=== PATIENT | female | born 1995 | race Hispanic/Latino ===

== ENCOUNTER 2018-08-31 04:52 | Emergency (ER) | payer SELFPAY ==
--- OUTSIDE RECORDS SUMMARY | 2018-08-31 04:54 | XMS REPORT ---
:1995 [facility] Address [address] [place] [address] Care Team Providers Name Role Phone Unavailable Unavailable Unavailable Problems This patient has no known problems. Allergies, Adverse Reactions, Alerts This patient has no known allergies or adverse reactions. Medications This patient has no known medications.
[2018-08-31] MEDS ORDERED: LIDOCAINE 1% MPF 5 ML VIAL ONE (05:33)
[2018-08-31] MEDS ORDERED: LIDOCAINE 2% W/EPI 1:200,000 MPF 20 ML VIAL IM ONE (05:50)
[2018-08-31] MEDS ORDERED: ONDANSETRON 4 MG (ODT) TAB ONE (06:05)
--- NOTE | 2018-08-31 06:11 | EDPHYS ---
Physician Documentation [facility] Name: Elba Wells Age: 23 yrs Sex: Female : 1995 Arrival Date: 08/31/2018 Time: 05:02 Bed 8 Private MD: ED Physician Rodrigo Saba HPI: 08/31 05:58 This 23 yrs old Female presents to ER via Ambulatory with complaints of gs Toothache. 05:59 The patient presents with broken tooth/teeth, pain. The problem is located in the lower gs left first bicuspid. Onset: The symptoms/episode began/occurred 1 week(s) ago, and became worse and became persistent. Duration: The symptoms are continuous. Modifying factors: the symptoms are aggravated by chewing. Associated signs and symptoms: Pertinent negatives: inability to eat, redness in area, swelling. Severity of symptoms: At their worst the symptoms were moderate, in the emergency department the symptoms are unchanged. The patient has experienced similar episodes in the past, a few times. 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 - Social history:: Smoking status: Patient/guardian denies using tobacco, Patient uses alcohol, occasionally. - Ebola Screening: : Patient negative for fever greater than or equal to 101.5 degrees Fahrenheit, and additional compatible Ebola Virus Disease symptoms. ROS: 05:59 All other systems are negative. gs 06:23 Abdomen/GI: Positive for vomiting, diarrhea. gs Exam: 05:59 Head/Face: Normocephalic, atraumatic. Eyes: Pupils equal round and reactive to light, gs extra-ocular motions intact. Lids and lashes normal. Conjunctiva and sclera are non-icteric and not injected. Cornea within normal limits. Periorbital areas with no swelling, redness, or edema. Neck: Trachea midline, no thyromegaly or masses palpated, and no cervical lymphadenopathy. Supple, full range of motion without nuchal rigidity, or vertebral point tenderness. No Meningismus. Cardiovascular: Regular rate and rhythm with a normal S1 and S2. No gallops, murmurs, or rubs. Normal PMI, no JVD. No pulse deficits. Respiratory: Lungs have equal breath sounds bilaterally, clear to auscultation and percussion. No rales, rhonchi or wheezes noted. No increased work of breathing, no retractions or nasal flaring. Abdomen/GI: Soft, non-tender, with normal bowel sounds. No distension or tympany. No guarding or rebound. No evidence of tenderness throughout. Back: No spinal tenderness. No costovertebral tenderness. Full range of motion. Skin: Warm, dry with normal turgor. Normal color with no rashes, no lesions, and no evidence of cellulitis. MS/ Extremity: Pulses equal, no cyanosis. Neurovascular intact. Full, normal range of motion. Neuro: Awake and alert, GCS 15, oriented to person, place, time, and situation. Cranial nerves II-XII grossly intact. Motor strength 5/5 in all extremities. Sensory grossly intact. Cerebellar exam normal. Normal gait. 05:59 Constitutional: The patient appears alert, awake, uncomfortable. 05:59 ENT: Dental exam: abscess, is not appreciated, fractured teeth are noted, specifically the lower left first bicuspid (#21), gum swelling, not appreciated. Vital Signs: 05:20 BP 143 / 86; Pulse 118; Resp 18 S; Temp 98.1(O); Pulse Ox 98% on R/A; Weight 89.81 kg jd3 (R); Height 5 ft. 6 in. (167.64 cm) (R); Pain 10/10; 05:49 BP 114 / 77; Pulse 70; Resp 18; Pulse Ox 97% on R/A; ea 05:20 Body Mass Index 31.96 (89.81 kg, 167.64 cm) jd3 Procedures: 05:59 Nerve block: (dental) of periapical block, Medication: Lidocaine 1% with epinephrine, Amount: 2 mls were injected, Effect: the patient's symptoms are improved, markedly, Performed by Rodrigo Saba MD Patient tolerated well. MDM: 05:22 Patient medically screened. gs 05:59 Differential diagnosis: dental caries, dental abscess. Data reviewed: vital signs, gs nurses notes. Counseling: I had a detailed discussion with the patient and/or guardian regarding: the historical points, exam findings, and any diagnostic results supporting the discharge/admit diagnosis, the need for outpatient follow up, an oral maxilofacial specialist. Response to treatment: the patient's symptoms have markedly improved after treatment, and as a result, I will discharge patient. Administered Medications: 05:45 Drug: Lidocaine-Epinephrine -1%: (1:100,000) 5 ml {Note: administered by provider.} ea Volume: 20 ml; Route: Infiltration; 05:51 Drug: Zofran 4 mg Route: PO; jd3 06:38 Follow up: Response: No adverse reaction jd3 06:37 Drug: Raywick 5 mg-325 mg 1 tabs Route: PO; jd3 06:38 Follow up: Response: Medication administered at discharge. jd3 Disposition: 08/31/18 06:10 Discharged to Home. Impression: Fracture of tooth (traumatic). - Condition is Stable. - Discharge Instructions: Tooth Injuries, [id number]. - Prescriptions for Amoxicillin 875 mg Oral Tablet - take 1 tablet by ORAL route every 12 hours .; 14 tablet. Zofran 4 mg Oral Tablet - take 1 tablet by ORAL route every 12 hours As needed; 6 tablet. Tylenol- Codeine #4 300-60 mg Oral Tablet - take 1 tablet by ORAL route every 6 hours As needed; 10 tablet. - Medication Reconciliation Form, Thank You Letter, Antibiotic Education, Prescription Opioid Use form. - Follow up: Samir Garcia DDS; When: 2 - 3 days; Reason: Re-evaluation by your physician. Signatures: Marly Wilhelm RN RN ea Starr, Gregory, MD MD Juvencio Upton RN RN jd3 Corrections: (The following items were deleted from the chart) 06:39 06:10 08/31/2018 06:10 Discharged to Home. Impression: Fracture of tooth (traumatic). jd3 Condition is Stable. Forms are Medication Reconciliation Form, Thank You Letter, Antibiotic Education, Prescription Opioid Use. Follow up: Samir Garcia; When: 2 - 3 days; Reason: Re-evaluation by your physician. erica
--- NOTE | 2018-08-31 06:11 | ER ---
Nurse's Notes [facility] Name: Elba Wells Age: 23 yrs Sex: Female : 1995 Arrival Date: 08/31/2018 Time: 05:02 Bed 8 Private MD: Diagnosis: Fracture of tooth (traumatic) Presentation: 08/31 05:16 Presenting complaint: Patient states: "I woke up with bad tooth pain. I have been jd3 dealing with it for awhile, but it has gotten bad today.". Transition of care: patient was not received from another setting of care. Onset of symptoms was August 31, 2018. Risk Assessment: Do you want to hurt yourself or someone else? Patient reports no desire to harm self or others. Initial Sepsis Screen: Does the patient meet any 2 criteria? No. Patient's initial sepsis screen is negative. Does the patient have a suspected source of infection? No. Patient's initial sepsis screen is negative. Care prior to arrival: Medication(s) given: amoxicillin and hydrocodone. 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 - Social history:: Smoking status: Patient/guardian denies using tobacco, Patient uses alcohol, occasionally. - Ebola Screening: : Patient negative for fever greater than or equal to 101.5 degrees Fahrenheit, and additional compatible Ebola Virus Disease symptoms. Screenin:26 Abuse screen: Denies threats or abuse. Nutritional screening: No deficits noted. jd3 Tuberculosis screening: No symptoms or risk factors identified. Fall Risk Ambulatory Aid- None/Bed Rest/Nurse Assist (0 pts). Gait- Normal/Bed Rest/Wheelchair (0 pts) Mental Status- Oriented to own ability (0 pts). Total Mcfadden Fall Scale indicates No Risk (0-24 pts). Assessment: 05:24 General: Appears uncomfortable, Behavior is cooperative, crying. Pain: Complains of jd3 pain in mouth Quality of pain is described as sharp. Neuro: Level of Consciousness is awake, alert, obeys commands, Oriented to person, place, time, situation, Appropriate for age. Cardiovascular: Capillary refill < 3 seconds Patient's skin is warm and dry. Respiratory: Airway is patent Respiratory effort is even, unlabored, Respiratory pattern is regular, symmetrical. GI: No signs and/or symptoms were reported involving the gastrointestinal system. : No signs and/or symptoms were reported regarding the genitourinary system. EENT: Reports pain in mouth. Derm: Skin is intact, Skin is dry, Skin is normal, Skin temperature is warm. Musculoskeletal: Circulation, motion, and sensation intact. Range of motion: intact in all extremities. Vital Signs: 05:20 BP 143 / 86; Pulse 118; Resp 18 S; Temp 98.1(O); Pulse Ox 98% on R/A; Weight 89.81 kg jd3 (R); Height 5 ft. 6 in. (167.64 cm) (R); Pain 10/10; 05:49 BP 114 / 77; Pulse 70; Resp 18; Pulse Ox 97% on R/A; ea 05:20 Body Mass Index 31.96 (89.81 kg, 167.64 cm) jd3 ED Course: 05:02 Patient arrived in ED. es 05:15 Rodrigo Saba MD is Attending Physician. gs 05:16 Juvencio Upton, RN is Primary Nurse. jd3 05:19 Triage completed. jd3 05:23 Arm band placed on. jd3 05:26 Patient has correct armband on for positive identification. Bed in low position. Call jd3 light in reach. Side rails up X 1. Adult w/ patient. 06:09 Samir Garcia DDS is Referral Physician. gs 06:38 No provider procedures requiring assistance completed. Patient did not have IV access jd3 during this emergency room visit. Administered Medications: 05:45 Drug: Lidocaine-Epinephrine -1%: (1:100,000) 5 ml {Note: administered by provider.} ea Volume: 20 ml; Route: Infiltration; 05:51 Drug: Zofran 4 mg Route: PO; jd3 06:38 Follow up: Response: No adverse reaction jd3 06:37 Drug: Murray 5 mg-325 mg 1 tabs Route: PO; jd3 06:38 Follow up: Response: Medication administered at discharge. jd3 Outcome: 06:10 Discharge ordered by . 06:38 Discharged to home ambulatory, with family. jd3 06:38 Condition: stable 06:38 Discharge instructions given to patient, Instructed on discharge instructions, follow up and referral plans. medication usage, Demonstrated understanding of instructions, follow-up care, medications, Prescriptions given X 3. 06:39 Patient left the ED. jd3 Signatures: Stefany Clifford Elena RN RN Rodrigo Rodriguez MD MD gs Davies, Jonathon, RN RN jmaddie
[2018-08-31] MEDS ORDERED: HYDROCODONE/APAP 5/325 MG TAB ONE (06:41)
== END 2018-08-31 06:39 | disposition home or self-care (01) ==
LOC: ER 04:52
DX: S02.5XXA Fracture of tooth (traumatic), initial encounter for closed fracture (principal); X58.XXXA Exposure to other specified factors, initial encounter
CPT/HCPCS: 99283

== ENCOUNTER 2018-09-05 23:40 | Emergency (ER) | payer SELFPAY ==
--- OUTSIDE RECORDS SUMMARY | 2018-09-05 23:42 | XMS REPORT ---
:1995 [facility] Address [address] [place] [address] Care Team Providers Name Role Phone Unavailable Unavailable Unavailable Problems This patient has no known problems. Allergies, Adverse Reactions, Alerts This patient has no known allergies or adverse reactions. Medications This patient has no known medications.
--- NOTE | 2018-09-06 00:59 | ER ---
Nurse's Notes [facility] Name: Elba Wells Age: 23 yrs Sex: Female : 1995 Arrival Date: 09/05/2018 Time: 23:42 Bed 18 [facility] MD: Diagnosis: Influenza due to unidentified influenza virus Presentation: 09/05 23:51 Presenting complaint: Patient states: Fever, chills, body aches that started around ed1 this time last night. Transition of care: patient was not received from another setting of care. Onset of symptoms was September 04, 2018. Risk Assessment: Do you want to hurt yourself or someone else? Patient reports no desire to harm self or others. Initial Sepsis Screen: Does the patient meet any 2 criteria? No. Patient's initial sepsis screen is negative. Does the patient have a suspected source of infection? No. Patient's initial sepsis screen is negative. Care prior to arrival: Medication(s) given: Motrin, Tylenol, Theraflu, Dayquil. 23:51 Method Of Arrival: Ambulatory ed1 23:51 Acuity: CED 4 ed1 Triage Assessment: 23:54 General: Appears uncomfortable, Behavior is calm, cooperative, Reports chills for 12-24 ed1 hours, fever for 12-24 hours, feeling ill for 12-24 hours, fatigue for 12-24 hours. Pain: Complains of pain in generalized Pain currently is 6 out of 10 on a pain scale. Quality of pain is described as aching, Pain began 1 day ago. Is continuous. EENT: Throat is reddened. Neuro: Level of Consciousness is awake, alert, obeys commands, Oriented to person, place, time, situation. Cardiovascular: Denies chest pain, Heart tones S1 S2 present. Respiratory: Reports cough that is non-productive, Airway is patent Respiratory effort is even, unlabored, Respiratory pattern is regular, symmetrical, Breath sounds are clear bilaterally. GI: Abdomen is non-distended, Bowel sounds present X 4 quads. Patient currently denies diarrhea, nausea, vomiting. : No signs and/or symptoms were reported regarding the genitourinary system. Derm: Skin is intact, is healthy with good turgor, Skin is dry, Skin is normal, Skin temperature is warm. Musculoskeletal: Circulation, motion, and sensation intact. Capillary refill < 3 seconds, in bilateral fingers. Range of motion: intact in all extremities. 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 - Social history:: Smoking status: Patient/guardian denies using tobacco. - Ebola Screening: : Patient negative for fever greater than or equal to 101.5 degrees Fahrenheit, and additional compatible Ebola Virus Disease symptoms Patient denies exposure to infectious person Patient denies travel to an Ebola-affected area in the 21 days before illness onset No symptoms or risks identified at this time. Screenin:57 Abuse screen: Denies threats or abuse. Denies injuries from another. Nutritional ed1 screening: No deficits noted. Tuberculosis screening: No symptoms or risk factors identified. Fall Risk None identified. Assessment: 23:57 General: See triage assessment. ed1 09/06 01:08 Reassessment: Patient appears in no apparent distress at this time. No changes from ed1 previously documented assessment. Patient and/or family updated on plan of care and expected duration. Pain level reassessed. Patient is alert, oriented x 3, equal unlabored respirations, skin warm/dry/pink. Vital Signs: 09/05 23:54 BP 123 / 88; Pulse 93; Resp 20; Temp 99.1(O); Pulse Ox 100% on R/A; Weight 89.81 kg; ed1 Height 5 ft. 6 in. (167.64 cm); Pain 6/10; 09/06 01:08 BP 113 / 88; Pulse 88; Resp 19; Temp 99.5(O); Pulse Ox 99% on R/A; Pain 6/10; ed1 09/05 23:54 Body Mass Index 31.96 (89.81 kg, 167.64 cm) ed1 ED Course: 09/05 23:42 Patient arrived in ED. es 23:51 Marian Larson, BALDOMERO is Primary Nurse. ed1 23:51 Ariel Leon PA is PHCP. cp 23:51 Rodrigo Saba MD is Attending Physician. cp 23:52 Triage completed. ed1 23:54 Arm band placed on. ed1 23:57 Patient has correct armband on for positive identification. Bed in low position. Call ed1 light in reach. Side rails up X 1. Pulse ox on. NIBP on. 09/06 01:08 No provider procedures requiring assistance completed. Patient did not have IV access ed1 during this emergency room visit. Administered Medications: No medications were administered Outcome: 00:58 Discharge ordered by . cp 01:08 Discharged to home ambulatory. ed1 01:08 Condition: good 01:08 Discharge instructions given to patient, Instructed on discharge instructions, follow up and referral plans. medication usage, Demonstrated understanding of instructions, follow-up care, medications, Prescriptions given X 2. 01:10 Patient left the ED. ed1 Signatures: Stefany Clifford Erika RN RN ed1 Ariel Leon PA PA cp
--- NOTE | 2018-09-06 00:59 | EDPHYS ---
Physician Documentation [facility] Name: Elba Wells Age: 23 yrs Sex: Female : 1995 Arrival Date: 09/05/2018 Time: 23:42 Bed 18 Private MD: ED Physician Rodrigo Saba HPI: 09/06 00:10 This 23 yrs old Female presents to ER via Ambulatory with complaints of Fever, cp Runny Nose. 00:10 The patient or guardian reports cough, with productive sputum, flu symptoms, low-grade cp fever, body aches. 00:10 Onset: The symptoms/episode began/occurred yesterday. Severity of symptoms: in the emergency department the symptoms have improved, mildly. Associated signs and symptoms: Pertinent positives: diarrhea, rhinorrhea, sore throat, Pertinent negatives: ear ache, vomiting. 00:57 Patient reports children recently diagnosed with influenza. 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 - Social history:: Smoking status: Patient/guardian denies using tobacco. - Ebola Screening: : Patient negative for fever greater than or equal to 101.5 degrees Fahrenheit, and additional compatible Ebola Virus Disease symptoms Patient denies exposure to infectious person Patient denies travel to an Ebola-affected area in the 21 days before illness onset No symptoms or risks identified at this time. ROS: 09/06 00:15 Constitutional: Positive for body aches, Negative for fever, poor PO intake. cp 00:15 Eyes: Negative for injury, pain, redness, and discharge. cp 00:15 ENT: Positive for rhinorrhea, sore throat, Negative for drainage from ear(s), ear pain, difficulty swallowing, difficulty handling secretions. 00:15 Neck: Negative for pain with movement, pain at rest, stiffness. 00:15 Respiratory: Positive for cough, Negative for shortness of breath, wheezing. 00:15 Abdomen/GI: Positive for diarrhea, Negative for abdominal pain, vomiting, constipation. 00:15 Skin: Negative for cellulitis, rash. 00:15 Neuro: Negative for altered mental status, headache, weakness. 00:15 All other systems are negative. Exam: 00:22 Constitutional: The patient appears in no acute distress, alert, awake, non-toxic, well cp developed, well nourished. 00:22 Head/Face: Normocephalic, atraumatic. cp 00:22 Eyes: Periorbital structures: appear normal, Conjunctiva: normal, no exudate, no injection, Sclera: no appreciated abnormality, Lids and lashes: appear normal, bilaterally. 00:22 ENT: External ear(s): are unremarkable, Ear canal(s): are normal, clear, TM's: bulging, is not appreciated, bilaterally, dullness, bilaterally, erythema, is not appreciated, bilaterally, Nose: is normal, Mouth: Lips: moist, Oral mucosa: moist, Posterior pharynx: Airway: no evidence of obstruction, patent, Tonsils: with erythema, no enlargement, no exudate, Uvula: midline, swelling, is not appreciated, erythema, that is mild, exudate, is not appreciated. 00:22 Neck: ROM/movement: is normal, is supple, without pain, no range of motions limitations, no meningismus, no nuchal rigidity. 00:22 Chest/axilla: Inspection: normal, Palpation: is normal, no crepitus, no tenderness. 00:22 Cardiovascular: Rate: normal, Rhythm: regular. 00:22 Respiratory: the patient does not display signs of respiratory distress, Respirations: normal, no use of accessory muscles, no retractions, no splinting, no tachypnea, labored breathing, is not present, Breath sounds: are clear throughout, no decreased breath sounds, no stridor, no wheezing. 00:22 Abdomen/GI: Exam negative for discomfort, distension, guarding, Inspection: abdomen appears normal. 00:22 Skin: cellulitis, is not appreciated, no rash present. Vital Signs: 09/05 23:54 BP 123 / 88; Pulse 93; Resp 20; Temp 99.1(O); Pulse Ox 100% on R/A; Weight 89.81 kg; ed1 Height 5 ft. 6 in. (167.64 cm); Pain 6/10; 09/06 01:08 BP 113 / 88; Pulse 88; Resp 19; Temp 99.5(O); Pulse Ox 99% on R/A; Pain 6/10; ed1 09/05 23:54 Body Mass Index 31.96 (89.81 kg, 167.64 cm) ed1 MDM: 09/05 23:51 Patient medically screened. cp 09/06 00:57 Data reviewed: vital signs, nurses notes, lab test result(s), and as a result, I will cp discharge patient. 00:57 Differential Diagnosis: Bronchitis Influenza Viral Syndrome Pneumonia. Counseling: I cp had a detailed discussion with the patient and/or guardian regarding: the historical points, exam findings, and any diagnostic results supporting the discharge/admit diagnosis, lab results, to return to the emergency department if symptoms worsen or persist or if there are any questions or concerns that arise at home. 09/06 00:01 Order name: Influenza Screen (a \T\ B) cp 09/06 00:01 Order name: Strep cp 09/06 00:44 Order name: Throat Culture EDMS Administered Medications: No medications were administered Disposition: 09/06/18 00:58 Discharged to Home. Impression: Influenza due to unidentified influenza virus. - Condition is Stable. - Discharge Instructions: Influenza, Adult, Form - Excuse from Work, School, or Physical Activity. - Prescriptions for Tessalon Perles 100 mg Oral Capsule - take 2 capsule by ORAL route every 8 hours As needed; 20 capsule. Tamiflu 75 mg Oral Capsule - take 1 tablet by ORAL route every 12 hours for 5 days; 10 tablet. - Medication Reconciliation Form, Thank You Letter, Antibiotic Education, Prescription Opioid Use form. - Follow up: Private Physician; When: 2 - 3 days; Reason: Worsening of condition. - Problem is new. - Symptoms are unchanged. Signatures: Dispatcher [employer] EDMS Marian Larson RN RN ed1 Ariel Leon PA PA cp Corrections: (The following items were deleted from the chart) 01:10 00:58 09/06/2018 00:58 Discharged to Home. Impression: Influenza due to unidentified ed1 influenza virus. Condition is Stable. Forms are Medication Reconciliation Form, Thank You Letter, Antibiotic Education, Prescription Opioid Use. Follow up: Private Physician; When: 2 - 3 days; Reason: Worsening of condition. Problem is new. Symptoms are unchanged. cp
== END 2018-09-06 01:10 | disposition home or self-care (01) ==
LOC: ER 23:40
DX: J10.1 Influenza due to other identified influenza virus with other respiratory manifestations (principal); Z91.09 Other allergy status, other than to drugs and biological substances
CPT/HCPCS: 87070; 87081; 87804; 99283

== ENCOUNTER 2019-01-11 12:59 | Emergency (ER) | payer SELFPAY ==
--- OUTSIDE RECORDS SUMMARY | 2019-01-11 13:02 | XMS REPORT ---
:1995 [facility] Address [address] [place] [address] Dr. Tate [address] [place] [id number] Care Team Providers Name Role Phone Unavailable Unavailable Unavailable Problems This patient has no known problems. Allergies, Adverse Reactions, Alerts This patient has no known allergies or adverse reactions. Medications This patient has no known medications.
--- NOTE | 2019-01-11 14:28 | EDPHYS ---
Physician Documentation [facility] Name: Elba Wells Age: 23 yrs Sex: Female : 1995 Arrival Date: 01/11/2019 Time: 13:04 Bed 19 Private MD: None, None ED Physician Liborio Murillo HPI: 01/11 14:38 This 23 yrs old Female presents to ER via Ambulatory with complaints of Back kb Injury. 14:38 The patient presents with pain that is acute. The symptoms are located in the right low kb back. Onset: The symptoms/episode began/occurred 3 day(s) ago. The pain radiates to the right leg. Associated signs and symptoms: The patient has no apparent associated signs or symptoms. The problem was sustained when lifting heavy object. Modifying factors: The patient symptoms are alleviated by nothing, the patient symptoms are aggravated by any movement. Severity of symptoms: At their worst the symptoms were moderate, in the emergency department the symptoms are unchanged. The patient has not experienced similar symptoms in the past. The patient has not recently seen a physician. Pt reports she lifted some heavy stuff at work on Wednesday and hurt her back. Reports right lower back pain that radiates down right leg. 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 - Social history:: Smoking status: Patient/guardian denies using tobacco. - Ebola Screening: : Patient negative for fever greater than or equal to 101.5 degrees Fahrenheit, and additional compatible Ebola Virus Disease symptoms Patient denies exposure to infectious person Patient denies travel to an Ebola-affected area in the 21 days before illness onset No symptoms or risks identified at this time. ROS: 14:36 Constitutional: Negative for fever, chills, and weight loss, Cardiovascular: Negative kb for chest pain, palpitations, and edema, Respiratory: Negative for shortness of breath, cough, wheezing, and pleuritic chest pain, Abdomen/GI: Negative for abdominal pain, nausea, vomiting, diarrhea, and constipation, : Negative for injury, bleeding, discharge, and swelling, MS/Extremity: Negative for injury and deformity, Skin: Negative for injury, rash, and discoloration, Neuro: Negative for headache, weakness, numbness, tingling, and seizure. 14:36 Back: Positive for pain at rest, pain with movement, radiated pain. Exam: 14:36 Constitutional: This is a well developed, well nourished patient who is awake, alert, kb and in no acute distress. Head/Face: Normocephalic, atraumatic. Chest/axilla: Normal chest wall appearance and motion. Nontender with no deformity. No lesions are appreciated. Cardiovascular: Regular rate and rhythm with a normal S1 and S2. No gallops, murmurs, or rubs. Normal PMI, no JVD. No pulse deficits. Respiratory: Lungs have equal breath sounds bilaterally, clear to auscultation and percussion. No rales, rhonchi or wheezes noted. No increased work of breathing, no retractions or nasal flaring. Abdomen/GI: Soft, non-tender, with normal bowel sounds. No distension or tympany. No guarding or rebound. No evidence of tenderness throughout. Skin: Warm, dry with normal turgor. Normal color with no rashes, no lesions, and no evidence of cellulitis. MS/ Extremity: Pulses equal, no cyanosis. Neurovascular intact. Full, normal range of motion. Neuro: Awake and alert, GCS 15, oriented to person, place, time, and situation. Cranial nerves II-XII grossly intact. Motor strength 5/5 in all extremities. Sensory grossly intact. Cerebellar exam normal. Normal gait. 14:36 Back: pain, that is moderate, of the right low back, ROM is normal, normal spinal alignment noted. Vital Signs: 13:10 BP 125 / 60; Pulse 91; Resp 17; Temp 97.2; Pulse Ox 99% on R/A; Weight 86.18 kg; Height aj 5 ft. 6 in. (167.64 cm); 14:11 BP 115 / 86; Pulse 98; Resp 17; Pulse Ox 100% on R/A; tw2 14:53 BP 114 / 83; Pulse 96; Resp 18; Pulse Ox 100% on R/A; tw2 13:10 Body Mass Index 30.67 (86.18 kg, 167.64 cm) laura MDM: 14:15 Patient medically screened. kb 14:36 Data reviewed: vital signs, nurses notes. Data interpreted: Pulse oximetry: on room air kb is 99 %. Interpretation: normal. Counseling: I had a detailed discussion with the patient and/or guardian regarding: the historical points, exam findings, and any diagnostic results supporting the discharge/admit diagnosis, the need for outpatient follow up, a family practitioner, to return to the emergency department if symptoms worsen or persist or if there are any questions or concerns that arise at home. 01/11 14:46 Order name: Urine Dipstick--Ancillary (enter results) bd 01/11 14:09 Order name: Urine Dipstick-Ancillary (obtain specimen); Complete Time: 14:18 tw2 Administered Medications: No medications were administered Disposition: 17:20 Co-signature as Attending Physician, Liborio Murillo MD. rn Disposition: 01/11/19 14:28 Discharged to Home. Impression: Low back pain. - Condition is Stable. - Discharge Instructions: Back Injury Prevention, Pqap-jf-Ssea, Back Pain, Adult, Jfqb-fl-Tovz, Back Exercises, [id number]-np-Xyqb. - Prescriptions for Cyclobenzaprine 10 mg Oral Tablet - take 1 tablet by ORAL route every 8 hours As needed; 21 tablet. Diclofenac Sodium 75 mg Oral Tablet, Delayed Release (E.C.) - take 1 tablet by ORAL route 2 times per day As needed; 30 tablet. - Medication Reconciliation Form, Thank You Letter, Antibiotic Education, Prescription Opioid Use, Work release form form. - Follow up: Emergency Department; When: As needed; Reason: Worsening of condition. Follow up: Private Physician; When: 2 - 3 days; Reason: Recheck today's complaints, Continuance of care, Re-evaluation by your physician. Signatures: Dispatcher [employer] Carolina Stout, VICKIE-Dorothea PRABHAKARP-Irene Sykes RN Liborio Briceño MD MD rn Wise, Tara, RN RN tw2 Corrections: (The following items were deleted from the chart) 14:27 14:20 TEST, SERUM+SC.LAB.BRZ ordered. [facility] 14:53 14:28 01/11/2019 14:28 Discharged to Home. Impression: Low back pain. Condition is tw2 Stable. Forms are Medication Reconciliation Form, Thank You Letter, Antibiotic Education, Prescription Opioid Use. Follow up: Emergency Department; When: As needed; Reason: Worsening of condition. Follow up: Private Physician; When: 2 - 3 days; Reason: Recheck today's complaints, Continuance of care, Re-evaluation by your physician. kb
--- NOTE | 2019-01-11 14:28 | ER ---
Nurse's Notes [facility] Name: Elba Wells Age: 23 yrs Sex: Female : 1995 Arrival Date: 01/11/2019 Time: 13:04 Bed 19 Private MD: None, None Diagnosis: Low back pain Presentation: 01/11 13:09 Presenting complaint: Patient states: Reports right lower back pain since Wednesday when aj she was carrying something heavy at work. Transition of care: patient was not received from another setting of care. Onset of symptoms was January 09, 2019. Risk Assessment: Do you want to hurt yourself or someone else? Patient reports no desire to harm self or others. Initial Sepsis Screen: Does the patient meet any 2 criteria? No. Patient's initial sepsis screen is negative. Does the patient have a suspected source of infection? No. Patient's initial sepsis screen is negative. Care prior to arrival: None. 13:09 Method Of Arrival: Ambulatory aj 13:09 Acuity: CED 4 aj Triage Assessment: 13:10 General: Appears in no apparent distress. comfortable, Behavior is calm, cooperative, aj appropriate for age. Pain: Complains of pain in lumbar area and right low back. Neuro: Level of Consciousness is awake, alert, obeys commands, Oriented to person, place, time, situation, Appropriate for age. Respiratory: Airway is patent Respiratory effort is even, unlabored, Respiratory pattern is regular, symmetrical. Derm: Skin is intact, is healthy with good turgor, Skin is pink, warm \T\ dry. normal. Musculoskeletal: Reports pain in lumbar area and right low back. 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 - Social history:: Smoking status: Patient/guardian denies using tobacco. - Ebola Screening: : Patient negative for fever greater than or equal to 101.5 degrees Fahrenheit, and additional compatible Ebola Virus Disease symptoms Patient denies exposure to infectious person Patient denies travel to an Ebola-affected area in the 21 days before illness onset No symptoms or risks identified at this time. Screenin:09 Abuse screen: Denies threats or abuse. Nutritional screening: No deficits noted. tw2 Tuberculosis screening: No symptoms or risk factors identified. Fall Risk None identified. Assessment: 14:10 General: Appears in no apparent distress. well groomed, Behavior is calm, cooperative, tw2 appropriate for age. Pain: Complains of pain in right low back and lumbar area. Neuro: Level of Consciousness is awake, alert, obeys commands, Oriented to person, place, time, situation. Cardiovascular: Heart tones S1 S2 Patient's skin is warm and dry. Respiratory: Airway is patent Respiratory effort is even, unlabored, Respiratory pattern is regular, symmetrical, Breath sounds are clear bilaterally. GI: No signs and/or symptoms were reported involving the gastrointestinal system. Abdomen is round non-distended, obese, Bowel sounds present X 4 quads. : No signs and/or symptoms were reported regarding the genitourinary system. Urine is clear. EENT: No signs and/or symptoms were reported regarding the EENT system. Derm: No signs and/or symptoms reported regarding the dermatologic system. Musculoskeletal: Range of motion: intact in all extremities, Reports pain in right low back and lumbar area. 14:53 Reassessment: Patient appears in no apparent distress at this time. No changes from tw2 previously documented assessment. Patient and/or family updated on plan of care and expected duration. Pain level reassessed. Patient is alert, oriented x 3, equal unlabored respirations, skin warm/dry/pink. Vital Signs: 13:10 BP 125 / 60; Pulse 91; Resp 17; Temp 97.2; Pulse Ox 99% on R/A; Weight 86.18 kg; Height aj 5 ft. 6 in. (167.64 cm); 14:11 BP 115 / 86; Pulse 98; Resp 17; Pulse Ox 100% on R/A; tw2 14:53 BP 114 / 83; Pulse 96; Resp 18; Pulse Ox 100% on R/A; tw2 13:10 Body Mass Index 30.67 (86.18 kg, 167.64 cm) ED Course: 13:04 Patient arrived in ED. dl4 13:05 None, None is Private Physician. dl4 13:10 Triage completed. aj 13:10 Arm band placed on left wrist. Patient placed in waiting room, Patient notified of wait aj time. 13:22 Carolina Butler [facility]-C [facility]. kb 13:22 Liborio Murillo MD is Attending Physician. kb 14:00 Bed in low position. Call light in reach. Pulse ox on. NIBP on. tw2 14:05 Becky Stevens, RN is Primary Nurse. tw2 14:53 No provider procedures requiring assistance completed. Patient did not have IV access tw2 during this emergency room visit. Administered Medications: No medications were administered Outcome: 14:28 Discharge ordered by . kb 14:53 Discharged to home ambulatory. tw2 14:53 Condition: stable 14:53 Discharge instructions given to patient, Instructed on discharge instructions, follow up and referral plans. no drinking with medication, no driving heavy equipment, medication usage, Demonstrated understanding of instructions, follow-up care, medications, Prescriptions given X 2. 14:53 Patient left the ED. tw2 Signatures: Carolina Butler FNP-C FNP-Ckb Myers, Amanda, RN RN Becky Segura, RN RN tw2 Tanmay Wade dl4
[2019-01-11 14:54] LABS: Urine Blood NEGATIVE (NEG); Urine Glucose NEGATIVE (NEG); Urine Protein NEGATIVE (NEG); Urine Specific Gravity <1.005 (1.005-1.030); Urine pH 6.5 (5.0-7.0)
== END 2019-01-11 14:53 | disposition home or self-care (01) ==
LOC: ER 12:59
DX: M54.5 Low back pain (principal); F41.9 Anxiety disorder, unspecified; Z88.8 Allergy status to other drugs, medicaments and biological substances
CPT/HCPCS: 81003; 99283

== ENCOUNTER 2020-05-08 00:45 | Inpatient (IN) | payer OTHER, SELFPAY ==
--- OUTSIDE RECORDS SUMMARY | 2020-05-08 00:49 | XMS REPORT | Continuity of Care Document ---
:1995 Author Organization [facility] t Address [address] [place] [address] [address] [place] [address] Care Team Providers Name Role Phone Sam Duarte Attending Clinician Ivan Hawkins MD Attending Clinician Alannah Logan Attending Clinician Paulino TONY Attending Clinician Marlene Saldana Attending Clinician Doctor Unassigned, Name Attending Clinician Unavailable Problems This patient has no known problems. Allergies, Adverse Reactions, Alerts This patient has no known allergies or adverse reactions. Medications This patient has no known medications. Procedures This patient has no known procedures. Encounters Start End Encounter Admission Attending Care Care Encounter Source Date/Time Date/Time Type Type Clinicians Facility Department ID 2020-03-27 2020-03-28 Emergency Sam Chase [id number] 19:22:00 00:39:00 Salina Aiken [id number] [place] [id number] [place] [id number] 2019-12-05 2019-12-05 Emergency MISHEL Hawkins [id number] 01:22:11 03:48:00 Ben Love Nelli [id number] [place] [id number] [place] [id number] 2019-11-15 2019-11-16 Emergency Sam Chase [facility] [id number] 19:21:57 00:00:00 Salina Nelli [id number] [place] [id number] [place] [id number] 2019-10-19 2019-10-19 Emergency Anil, [facility] [id number] 04:35:17 06:17:00 Mookie Aiken [id number] [place] [id number] [place] [id number] 2019-08-31 2019-08-31 [facility] [id number] 03:53:07 05:03:00 James Aiken [id number] [place] [id number] [place] [id number] 2019-01-29 2019-01-29 [facility] [id number] 15:09:14 18:22:00 Aníbal Aiken [id number] [place] [id number] [place] [id number] 2019-01-29 2019-01-29 Orders Doctor BRONWYN [id number] 00:00:00 00:00:00 Only Unassigned, FAUSTO [id number] [place] [facility] [id number] Results This patient has no known results.
--- OUTSIDE RECORDS SUMMARY | 2020-05-08 00:49 | XMS REPORT | Summary of Care ---
:1995 Author Organization [facility] Address [address] [place] [address] Care Team Providers Name Role Phone Delbert Valladares Insurance H[employer] Pcp, Does Not Have A Primary Care Provider Reason for Referral MRI/CAT Scan (STAT) Status Reason Specialty Diagnoses / Referred By Referred To Procedures Contact Contact New Request Diagnostic Diagnoses Abdominal pain, unspecified abdominal location Salvatore, K Radiology Procedures CT ABDOMEN PELVIS WO CONTRAST CT ABDOMEN PELVIS W CONTRAST [place], [address] [place] [address] Radiology Services (STAT) Status Reason Specialty Diagnoses / Referred By Referred To Procedures Contact Contact New Request Diagnostic Diagnoses Abdominal pain, unspecified abdominal location Salvatore, K Radiology Procedures US GALL BLADDER [place], [address] [place] [address] Reason for Visit Reason Comments Headache Viral Syndrome Auth/Cert Status Reason Specialty Diagnoses / Referred By Referred To Procedures Contact Contact Emergency Medicine [facility] ergency Dept [address] [place] [id number] Fax: Encounter Details Date Type Department Care Team Description 03/27/2020 - Emergency ADC-Emergency Salvatore, K [place], Suspected COVID-19 virus infection (Primary Dx); 03/28/2020 Department PAC Vomiting, intractability of vomiting not specified, presence of nausea not specified, unspecified vomiting type; [address] [place] [address] Dr [address]; [place] [address] Nonintractable headache, unspecified chr onicity pattern, unspecified headache type; [place], [place] [id number] Abdominal pain, unspecified abdominal lo cation; [phone] Bandemia Allergies Active Allergy Reactions Severity Noted Date Comments Iodine Swelling 07/22/2017 documented as of this encounter (statuses as of 03/28/2020) Medications Medication Sig Dispensed Refills Start Date End Date Status traMADol (ULTRAM) 50 mg Take 1 tablet by 9 tablet 0 9 Active tabletIndications: mouth every 8 Acute pain of right (eight) hours as knee, Sprain of right needed for Pain knee, unspecified (scale 4-6). ligament, initial encounter sod [id number] Use 1 Bottle in 1 Each 0 06/09/2019 Active bottle (NEILMED SINUS each nostril 2 RINSE COMPLETE) (two) times pkdvIndications: SOB daily. Use in hot (shortness of breath), shower 1 hour Upper respiratory tract before bedtime infection, unspecified type promethazine-codeine Take 5 mL by 60 mL 0 06/09/2019 Active 6.25-10 mg/5 mL mouth 4 (four) syrupIndications: SOB times daily as (shortness of breath), needed for Cough. Upper respiratory tract infection, unspecified type ondansetron 4 mg Take 1 tablet by 20 tablet 0 08/31/2019 Active disintegrating mouth every 4 tabletIndications: (four) hours as Cough, Upper needed for Nausea respiratory tract and Vomiting infection, unspecified (N/V). type acetaminophen-codeine Take 1-2 tablets 20 tablet 0 08/31/2019 Active 300-30 mg by mouth every 6 tabletIndications: (six) hours as Cough, Upper needed (cough). respiratory tract infection, unspecified type ibuprofen 800 mg Take 1 tablet by 30 tablet 0 08/31/2019 Active tabletIndications: mouth every 8 Cough, Upper (eight) hours as respiratory tract needed for Pain infection, unspecified (scale 4-6). type ibuprofen 600 mg Take 1 tablet by 30 tablet 0 11/15/2019 Active tabletIndications: mouth every 6 Calculus of gallbladder (six) hours as without cholecystitis needed for Pain without obstruction (scale 4-6). acetaminophen-codeine Take 1 tablet by 15 tablet 0 11/15/2019 Active 300-30 mg mouth every 4 tabletIndications: (four) hours as Calculus of gallbladder needed for Pain without cholecystitis (scale 4-6). without obstruction traMADol 50 mg Take 1 tablet by 20 tablet 0 12/05/2019 Active tabletIndications: mouth every 6 Calculus of gallbladder (six) hours as without cholecystitis needed (pain). without obstruction proMETHazine 25 mg Take 1 tablet by 20 tablet 0 12/05/2019 Active tabletIndications: mouth every 6 Nausea (six) hours as needed for Nausea and Vomiting (N/V). ibuprofen 600 mg Take 1 tablet by 30 tablet 0 03/27/2020 Active tabletIndications: mouth every 6 Suspected COVID-19 (six) hours as virus infection needed for Pain (scale 4-6). ondansetron (ZOFRAN Take 1 tablet by 10 tablet 0 03/27/2020 Active ODT) 4 mg mouth every 8 disintegrating (eight) hours as tabletIndications: needed for Nausea Suspected COVID-19 and Vomiting virus infection (N/V). documented as of this encounter (statuses as of 03/28/2020) Active Problems Problem Noted Date Well woman exam 04/26/2018 Contraceptive management 04/26/2018 Overweight 07/22/2017 documented as of this encounter (statuses as of 03/28/2020) Resolved Problems Problem Noted Date Resolved Date Routine follow-up 04/01/2018 04/26/2018 39 weeks gestation of 03/07/2018 04/01/20 18 Group B streptococcal infection during 02/23/2018 04/01/2018 Overview: Treat in labor Supervision of high risk , antepartum 01/04/2018 04/01/2018 Back pain with right-sided sciatica 12/21/201703/21 History of 3 sections 12/21/2017 8 Back pain affecting , antepartum 12/09/2017 02/18/2018 Supervision of high risk in second trimester 09/2701/04/2018 Feeling light headed 09/08/2017 11/23/2017 Supervision of high risk , antepartum, first trimes ter 08/31/2017 09/27/2017 Urinary tract infection without hematuria, site unspecified 08/11/2017 04/01/2018 Overview: adarsh 09/27/17 negative Supervision of high-risk of young primigravida 06/201708/31/2017 Previous delivery affecting , antepartum 0 07/22/2017 04/01/2018 Multiparity 07/22/2017 04/01/2018 H/O miscarriage, currently 07/22/201703/21 Previous delivery affecting , antepartum 0 09/24/2016 07/22/2017 Obesity (BMI 30-39.9) 09/24/2016 07/22/2017 Anemia of in third trimester 08/20/2016 0 07/22/2017 33 weeks gestation of 08/19/2016 08/26/19 17 History of maternal blood transfusion, currently in 08/19/2016 07/22/2017 third trimester 32 weeks gestation of 08/13/2016 08/26/19 17 Anemia affecting in third trimester 08/13/2016 07/22/2017 Anxiety during in third trimester, antepartum 07/2307/22/2017 Circumvallate placenta during in third trimester, 07/23/2016 11/23/2017 antepartum Subchorionic hematoma, third trimester, fetus 1 07/23/2016 11/23/2017 High-risk , third trimester 07/23/201606/2017 Anemia complicating , third trimester 07/09/2016 07/22/2017 Left sided sciatica 06/11/2016 07/22/2017 Numbness of left foot 06/11/2016 07/22/2017 Vaginal bleeding in , second trimester 06/11/2016 07/22/2017 E. coli UTI 05/21/2016 07/22/2017 UTI in , antepartum, third trimester 05/21/2016 05/21/2016 UTI in , second trimester 05/21/201607/22 Echogenic bowel of fetus on ultrasound 05/13/2016 07/22/2017 Persistent cough 05/13/2016 07/22/2017 High-risk , second trimester 05/13/2016 Depression affecting in second trimester, antepart um 05/13/2016 07/23/2016 Anxiety during in second trimester, antepartum 08/11/2016 Subchorionic hematoma in second trimester 05/13/2016 08/11/2016 Circumvallate placenta during in second trimester, 05/13/2016 07/23/2016 antepartum Vaginal bleeding 04/15/2016 08/11/2016 Incomplete ABx Course 03/06/2016 07/22/2017 GBS carrier 02/12/2016 07/22/2017 UTI in , first trimester 02/12/20162017 Nausea and vomiting during prior to 22 weeks 02/1007/22/2017 gestation Supervision of high-risk , first trimester 02/11/20 16 05/13/2016 Subchorionic hematoma in first trimester 02/11/2016 07/23/2016 Vaginal bleeding in , first trimester 02/11/2016 07/22/2017 Threatened miscarriage in early 02/11/2016 07/22/2017 Previous section complicating 02/11/2016 07/22/2017 History of dilatation and curettage 02/11/2016 0206/2017 Anxiety and depression 02/11/2016 07/22/2017 Anxiety during in first trimester, antepartum 01/2005/13/2016 Depression affecting in first trimester, antepartu m 02/11/2016 07/23/2016 Hypertension 03/08/2018 documented as of this encounter (statuses as of 03/28/2020) Immunizations Name Administration Dates Next Due HPV9 03/09/2018 (Deferred: - Per patient she completed 3 HPV vaccines when she was young.) Influenza Virus Vaccine Quad IM 3+ 03/25/2016 YRS TDAP 12/21/2017, 07/09/2016 documented as of this encounter Social History Tobacco Use Types Packs/Day Years Used Date Never Smoker Smokeless Tobacco: Never Used Alcohol Use Drinks/Week oz/Week Comments Yes 0 Standard drinks or equivalent 0.0 on occassion Sex Assigned at Date Recorded Not on file COVID-19 Exposure Response Date Recorded In the last month, have you been in contact with No / Unsure 03/27/2020 7:12 PM CDT someone who was confirmed or suspected to have Coronavirus / COVID-19? documented as of this encounter Last Filed Vital Signs Vital Sign Reading Time Taken Comments Blood Pressure 113/84 03/28/2020 12:38 AM CDT Pulse 87 03/28/2020 12:38 AM CDT Temperature 37.5 C (99.5 F) 03/27/2020 7:14 PM CDT Respiratory Rate 18 03/28/2020 12:38 AM CDT Oxygen Saturation 100% 03/28/2020 12:38 AM CDT Inhaled Oxygen Concentration - - Weight 90.7 kg (200 lb) 03/27/2020 7:14 PM CDT Height 167.6 cm (5' 6") 03/27/2020 7:14 PM CDT Body Mass Index 32.28 03/27/2020 7:14 PM CDT documented in this encounter Discharge Instructions AttachmentsThe following attachments cannot be sent through Care Everywhere. Coronavirus Disease 2019 (COVID-19) (Armenian)documented in this encounter Miscellaneous Notes ED Nurse Note - Shima Baer RN - 03/28/2020 12:36 AM CDTPt given printed and verbal discharge instructions regarding Suspected covid infection, headache, bandemia, vomiting, and body aches, encouraged hydration. Prescriptions provided. Discussed ibuprofen and to take with food to avoid GI distress. Pt verbalized understanding of instructions, pt awake alert oriented, resp reg unlabored, skin w/d, color appropriate for race, moves all ext well, pt encouraged to follow up with PCP. Patient providedaccess center phone number. Advised to seek medical attention for new/prolonged/worsening of symptoms. Symptoms addressed. No adverse reaction to meds given in ER noted upon discharge. PIV d'cd, dressing to site, catheter intact. Pt leaving amb with steady gait, in no apparent distress. D Nurse Note - Shima Baer RN - 03/27/2020 7:19 PM CDTWalk test performed, oxygen saturation remained above 93% on room air. D Nurse Note - Shima Baer RN - 03/27/2020 7:12 PM CDTCC: patient presents to the ER with complaints of a viral illness and headache that began Wednesday. Patient states that she was expose to covid about one month ago. PMHx: see history LMP: 02/22/2020 Tetanus: Unknown Awake, alert, oriented, resp reg unlabored, skin warm and dry, color appropriate for race, moves allext without difficulty, amb without assistance. Appears in no distress. documented in this encounter Plan of Treatment Name Type Priority Associated Diagnoses Date/Ti me CORONAVIRUS COVID-19 LAB STAT Vomiting, intractabi lity 03/27/2020 8:58 PM TESTING of vomiting not CDT specified, presence of nausea not specified, unspecified vomi ting type Body aches Nonintractable headache, unspecified chronicity pattern, unspecified headache type US GALL BLADDER IMAGING STAT Abdominal pain, 0 10:06 PM unspecified abdominal CDT location BLOOD CULTURE SCREEN LAB STAT Abdominal pain, 12/2019 9:28 PM unspecified abdominal CDT location BLOOD CULTURE SCREEN LAB STAT Abdominal pain, 12/2019 9:42 PM unspecified abdominal CDT location Name Type Priority Associated Diagnoses Order S chedule CORONAVIRUS COVID-19 LAB Routine Vomiting, intractabi lity ONCE for 1 Occurrences TESTING of vomiting not specified, s tarting 03/27/2020 presence of nausea not until 03/27/2020 specified, unspecified vomiting type Body aches Nonintractable headache, unspecified chronicity pattern, unspecified headache type BLOOD CULTURE SCREEN LAB Routine Abdominal pain, ONCE for 1 Occurrences unspecified abdominal starti ng 03/27/2020 location until 0 BLOOD CULTURE SCREEN LAB Routine Abdominal pain, ONCE for 1 Occurrences unspecified abdominal starti ng 03/27/2020 location until 0 Health Maintenance Due Date Last Done Comments PNEUMOCOCCAL 0-64 YEARS COMBINED 08/23/1999 SERIES (1 of 3 - PCV13) HPV VACCINES (1 - 2-dose series) 2004 Depression Screening 2005 INFLUENZA VACCINE (#1) 2020 03/25/2016 PAP SMEAR 04/27/2022 04/27/2019, 04/27/2019, 02/21/2016 DTaP,Tdap,and Td Vaccines (3 - Td) 12/22/2027 12/21/2017, 0 07/09/2016 documented as of this encounter Procedures Procedure Name Priority Date/Time Associated Diagnosis Comme nts CT ABDOMEN PELVIS STAT 03/27/2020 10:42 PM Abdominal pain, Results for this WO CONTRAST CDT unspecified procedure are i n abdominal location the resul ts section. US GALL BLADDER STAT 03/27/2020 10:06 PM Abdominal pain, CDT unspecified abdominal location Procedure Note - [facility], Radia nt Results Inft User - 03/27/2020 10:32 PM CDT EXAM: US GALL BLADDER HISTORY: 24 years-old Female with abd pain, bandemia . TECHNIQUE: Limited abdominal ultrasound performed focused on the gallbladder. Main portal vei n was evaluated with color Doppler imaging. Circuitry Negative Inspector images were o btained for the record. COMPARISON: None FINDINGS: LIVER: Limited evaluation of the liver on this focused gallbladder examination.. Length: 17.0 cm in the crani ocaudal dimension Parenchyma: Diffuse increase hepatic echogenicity. No focal lesion is detected Portal vein: Hepatopetal hira w present in the main portal vein. MPV diameter: 1.3 cm in AP d imension GALLBLADDER: The gallbladder is normally distended. Cholelithiasis measuring 2.3 cm. Mildly gallbladder wall thic kness, 0.3 cm. Lynn's sign could not be a ccurately assessed due to premedication for pain. BILE DUCTS: No intra- or extrahepatic bi liary dilatation.. Common Duct diameter: 0.4 cm . PANCREAS: Limited visualizat ion due to shadowing from bowel gas.. OTHER: None. IMPRESSION Cholelithiasis without sonog raphic evidence of acute cholecystitis. Hepatic steatosis Preliminary Report Dictated by Resident: Caridad CARRINGTON-19 (ID NOW STAT 03/27/2020 8:18 Vomiting, intractabi lity of Results for RAPID TESTING) PM CDT vomiting not specified, th is procedure presence of nausea not are i n the specified, unspecified resul ts vomiting type section. Body aches Nonintractable headache, unspecified chronicity pattern, unspecified headache type URINALYSIS STAT 03/27/2020 8:18 Vomiting, intractability of Results for PM CDT vomiting not specified, this procedure presence of nausea not are i n the specified, unspecified resul ts vomiting type section. Body aches Nonintractable headache, unspecified chronicity pattern, unspecified headache type CBC WITH DIFF STAT 03/27/2020 8:18 Vomiting, intractabilit y of Results for PM CDT vomiting not specified, this procedure presence of nausea not are i n the specified, unspecified resul ts vomiting type section. Body aches Nonintractable headache, unspecified chronicity pattern, unspecified headache type COMP. METABOLIC STAT 03/27/2020 8:18 Vomiting, intractabil ity of Results for PANEL ([id number]) PM CDT vomiting not specified, thi s procedure presence of nausea not are i n the specified, unspecified resul ts vomiting type section. Body aches Nonintractable headache, unspecified chronicity pattern, unspecified headache type MAGNESIUM STAT 03/27/2020 8:18 Vomiting, intractability of Results for PM CDT vomiting not specified, this procedure presence of nausea not are i n the specified, unspecified resul ts vomiting type section. Body aches Nonintractable headache, unspecified chronicity pattern, unspecified headache type LIPASE STAT 03/27/2020 8:18 Vomiting, intractability of Results for PM CDT vomiting not specified, this procedure presence of nausea not are i n the specified, unspecified resul ts vomiting type section. Body aches Nonintractable headache, unspecified chronicity pattern, unspecified headache type POCT DOUGLAS 03/27/2020 8:17 Vomiting, intractabili ty of Results for TEST PM CDT vomiting not specified, this procedure presence of nausea not are i n the specified, unspecified resul ts vomiting type section. Body aches Nonintractable headache, unspecified chronicity pattern, unspecified headache type CONSENT/REFUSAL Routine 03/27/2020 7:05 FOR DIAGNOSIS AND PM CDT TREATMENT documented in this encounter Results CT ABDOMEN PELVIS WO CONTRAST (03/27/2020 10:42 PM CDT) Specimen Impressions Performed At PACS/VR/DOSE No acute intra-abdominal or pelvic findi ngs. Cholelithiasis. Left ovarian cyst measuring 4.6 cm. Foll ow-up sonographic in 6 weeks. Preliminary Report Dictated by Resident: Meagan Bradley I, Elijah Richardson MD., have review ed this study and agree with the above report. Narrative Performed At EXAM: CT ABDOMEN AND PELVIS WITHOUT CONT RAST PACS/VR/DOSE HISTORY: Abd pain, acute, generalized COMPARISON: CT of the abdomen dated 6/16 /2020. TECHNIQUE AND FINDINGS: Contiguous axial imaging from the level of the lung bases through the pubic symphysis was pe rformed without the intravenous administration of contrast. Coronal and sagittal reconstructions were obtained. Auto mA and/or iterative rec onstruction were used to reduce radiation dose. FINDINGS: LOWER THORAX: 2 to 3 mm subpleural solid nodule within the right lower lobe (2:11-12). LIVER: No focal hepatic lesions within l imits of unenhanced technique. Normal liver contour. GALLBLADDER AND BILIARY TREE: Cholelithi asis. No biliary dilatation. SPLEEN: No splenomegaly. PANCREAS: No ductal dilation. ADRENAL GLANDS: No adrenal nodules. KIDNEYS: No hydronephrosis or nephrolithiasis. No cont our deforming renal lesion. PERITONEUM AND RETROPERITONEUM: No free air or fluid. A small fat-containing umbilical hernia is seen. LYMPH NODES: No lymphadenopathy. GI TRACT: No dilation or abnormal wall t hickening. Small sliding-type hiatal hernia. PELVIS/BLADDER: A 4.6 x 3.7 cm left ovarian cyst is se en posterior to the urinary bladder. Urinary bladder is norm al for the degree of distention. The uterus is unremarkable. Right ovary is not well di stinguished from the adjacent viscera. VESSELS: Unremarkable. BONES AND SOFT TISSUES: No suspicious ly tic or sclerotic bony lesions. Diastasis of rectus sheath with a small fat-containing umbilical hernia. Procedure Note [facility], Radiant Results Inft User - 2019 12:12 AM CDT EXAM: CT ABDOMEN AND PELVIS WITHOUT CONTRAST HISTORY: Abd pain, acute, generalized COMPARISON: CT of the abdomen dated 12/04. TECHNIQUE AND FINDINGS: Contiguous axial imaging from the level of the lung bases through the pubic symphysis was pe rformed without the intravenous administration of contrast. Coronal and sagittal reconstructions were obtained. Auto mA and/or iterative tiffanie nstruction were used to reduce radiation dose. FINDINGS: LOWER THORAX: 2 to 3 mm subpleural solid nodule within the right lower lobe (2:11-12). LIVER: No focal hepatic lesions within l imits of unenhanced technique. Normal liver contour. GALLBLADDER AND BILIARY TREE: Cholelithi asis. No biliary dilatation. SPLEEN: No splenomegaly. PANCREAS: No ductal dilation. ADRENAL GLANDS: No adrenal nodules. KIDNEYS: No hydronephrosis or nephrolith iasis. No contour deforming renal lesion. PERITONEUM AND RETROPERITONEUM: No free air or fluid. A small fat-containing umbilical hernia is seen. LYMPH NODES: No lymphadenopathy. GI TRACT: No dilation or abnormal wall t hickening. Small sliding-type hiatal hernia. PELVIS/BLADDER: A 4.6 x 3.7 cm left ovar win cyst is seen posterior to the urinary bladder. Urinary bladder is norm al for the degree of distention. The uterus is unremarkable. Right ovary is not well distinguished from the adjacent viscera. VESSELS: Unremarkable. BONES AND SOFT TISSUES: No suspicious ly tic or sclerotic bony lesions. Diastasis of rectus sheath with a small fat-containing umbilical hernia. IMPRESSION No acute intra-abdominal or pelvic findi ngs. Cholelithiasis. Left ovarian cyst measuring 4.6 cm. Foll ow-up sonographic in 6 weeks. Preliminary Report Dictated by Resident: Meagan Bradley I, Elijah Richardson MD., have reviewe d this study and agree with the above report. Performing Organization Address [facility] Phone Number PACS/VR/DOSE COVID-19 (ID NOW RAPID TESTING) (03/27/2020 8:18 PM CDT) SARS-CoV-2 Rapid ID Not Detected Not Detected [facility] Specimen Swab - NASOPHARYNGEAL SWAB Narrative Performed At ID NOW COVID-19 Assay is an isothermal nucleic [facility] acid amplification test intended for the qualitative detection of nucleic acid from SARS-CoV-2 viral RNA in nasopharyngeal (DAIRY FROZEN MANAGER) specimens. It is used under Emergency Use Authorization (EUA) by FDA. The limit of detection (LOD) of the assay is 125 Genome Equivalents/mL. A positive result is indicative of the presence of SARS-CoV-2 RNA. Clinical correlation with patient history and other diagnostic information is necessary to determine patient infection status. A negative (Not Detected) result does not preclude SARS-CoV-2 infection. In patients with clinical symptoms and other tests that are consistent with SARS-CoV-2 infection, negative results should be treated as presumptive negative and a new specimen should be tested with alternative PCR molecular test. Invalid: Please collect a new specimen for repeat patient testing if clinically indicated. Performing Organization Address [facility]/Zipcode Phone Number [facility] CLIA: [id number] [place] [address] URINALYSIS (03/27/2020 8:18 PM CDT) Pathologist Sig nature APPEARANCE Clear Clear [facility] COLOR Yellow Yellow [facility] PH 5.0 4.8 - 8.0 [facility] SP GRAVITY 1.018 1.003 - 1.030 [facility] GLU U QUAL Normal Normal [facility] BLOOD Negative Negative [facility] KETONES Negative Negative [facility] PROTEIN Negative Negative [facility] UROBILIN Normal Normal [facility] BILIRUBIN Negative Negative [facility] NITRITE Negative Negative [facility] LEUK GABBY Negative Negative [facility] RBC/HPF 2 0 - 3 HPF [facility] WBC/HPF 5 0 - 5 HPF [facility] BACTERIA Few (A) Negative [facility] MUCOUS Slight (A) Negative LPF [facility] SQ EPITH 4 HPF [facility] Specimen Urine - URINE, CLEAN CATCH Performing Organization Address [facility] Phone Number [facility] CLIA: [id number] [place] [address] MAGNESIUM (03/27/2020 8:18 PM CDT) Pathologist Sig nature MAGNESIUM 2.1 1.7 - 2.4 mg/dL [facility] Specimen Blood - VENOUS Performing Organization Address City/[facility] Phone Number [facility] CLIA: [id number] [place] [address] LIPASE (03/27/2020 8:18 PM CDT) Pathologist Sig nature LIPASE 88 0 - 220 U/L [facility] Specimen Blood - VENOUS Performing Organization Address [facility] Phone Number [facility] CLIA: [id number] [place] [address] COMP. METABOLIC PANEL ([id number]) (03/27/2020 8:18 PM CDT) Pathologist [facility] nature NA [phone] - 145 [facility] mmol/L [facility] K 3.9 3.5 - 5.0 [facility] mmol/L [facility] CL 97 (L) 98 - 108 mmol/L [facility] CO2 TOTAL 30 23 - 31 mmol/L [facility] AGAP 9 2 - 16 [facility] BUN 7 7 - 23 mg/dL [facility] GLUCOSE 92 70 - 110 mg/dL [facility] CREATININE 0.63 0.50 - 1.04 [facility] mg/dL [facility] TOTAL BILI 0.5 0.1 - 1.1 mg/dL [facility] CALCIUM 9.6 8.6 - 10.6 [facility] mg/dL [facility] T PROTEIN 8.3 (H) 6.3 - 8.2 g/dL [facility] ALBUMIN 4.4 3.5 - 5.0 g/dL [facility] ALK PHOS 113 34 - 122 U/L [facility] ALTv 75 (H) 5 - 35 U/L [facility] AST(SGOT) 52 (H) 13 - 40 U/L [facility] eGFR Calculation 114.2 mL/min/1.73m2 [facility] [place] eGFR Calculation 138.4 mL/min/1.73m2 [facility] () [facility] Specimen Blood - VENOUS Narrative Performed At Association of Glomerular Filtration Rate (GFR) [facility] and Staging of Kidney Disease* + + +- + | GFR (mL/min/1.73 m2) | With Kidney Damage | Without Kidney Damage + + +- + | >90 | Stage one | Normal + + +- + | 60-89 | Stage two | Decreased GFR + + +- + | 30-59 | Stage three | Stage three + + +- + | 15-29 | Stage four | Stage four + + +- + | <15 (or dialysis) | Stage five | Stage five + + +- + *Each stage assumes the associated GFR level has been in effect for at least three months. Stages 1 to 5, with or without kidney disease, indicate chronic kidney disease. Notes: Determination of stages one and two (with eGFR >59mL/min/1.73 m2) requires estimation of kidney damage for at least three months as defined by structural or functional abnormalities of the kidney, manifested by either: Pathological abnormalities or Markers of kidney damage (including abnormalities in the composition of the blood or urine or abnormalities in imaging tests). Performing Organization Address City/State/Zipcode Phone Number [facility] CLIA: [id number] [place] [address] CBC WITH DIFF (03/27/2020 8:18 PM CDT) WBC 4.33 4.30 - 11.10 [facility] 10*3/L [facility] RBC 4.56 3.93 - 5.25 [facility] 10*6/L [facility] HGB 12.7 11.6 - 15.0 [facility] g/dL [facility] HCT 40.7 35.7 - 45.2 % [facility] MCV 89.3 80.6 - 95.5 fL [facility] MCH 27.9 25.9 - 32.8 pg [facility] MCHC 31.2 (L) 31.6 - 35.1 [facility] g/dL [facility] RDW-SD 45.4 39.0 - 49.9 fL [facility] RDW-CV 14.1 12.0 - 15.5 % [facility] PLT 263 166 - 358 [facility] 10*3/L [facility] MPV 10.1 9.5 - 12.9 fL [facility] NRBC/100 WBC 0.0 0.0 - 10.0 [facility] /100 WBCs [facility] NRBC x10^3 <0.01 10*3/L [facility] GRAN MAT (NEUT) % 56.3 % [facility] IMM GRAN % 0.90 % [facility] LYMPH % 31.9 % [facility] MONO % 9.5 % [facility] EOS % 0.5 % [facility] BASO % 0.9 % [facility] GRAN MAT 2.44 1.88 - 7.09 [facility] x10^3(ANC) 10*3/uL HOSPITAL LAB[facility]ATORY IMM GRAN x10^3 0.04 0.00 - 0.06 [facility] 10*3/uL [facility] LYMPH x10^3 1.38 1.32 - 3.29 [facility] 10*3/uL [facility] MONO x10^3 0.41 0.33 - 0.92 [facility] 10*3/uL [facility] EOS x10^3 <0.03 (L) 0.03 - 0.39 [facility] 10*3/uL [facility] BASO x10^3 0.04 0.01 - 0.[address]/uL [facility] BANDS Increased (A) [facility] REACT LYMPHS Rare [facility] Specimen Blood - VENOUS Performing Organization Address City/State/Zipcode Phone Number [facility] CLIA: [id number] [place] [address] POCT TEST (03/27/2020 8:17 PM CDT) Pathologist Sig nature POCT PREG Negative On board controls acceptable Present with C Line POCT PREG LOT # [id number] POCT PREG TEST DATE 02/18/2021 Specimen Urine - URINE, CLEAN CATCH documented in this encounter Visit Diagnoses Diagnosis Suspected COVID-19 virus infection - Alejandra anna Vomiting, intractability of vomiting not specified, presence of nausea not specified, unspecified vomiting type Body aches Generalized pain Nonintractable headache, unspecified chr onicity pattern, unspecified headache type Abdominal pain, unspecified abdominal lo cation Bandemia documented in this encounter Administered Medications Medication Order MAR Action Action Date Dose Rate Site diphenhydrAMINE (BENADRYL) Given 03/27/2020 8:29 PM CDT 25 mg injection 25 mg 25 mg, Slow IV Push, ONCE, 1 dose, 03/27/20 at 2115, STAT FENTanyl PF (SUBLIMAZE (PF)) injection 50 Given 03/28/2020 12:13 AM CDT 50 mcg mcg 50 mcg, Slow IV Push, ONCE, 1 dose, Trista 03/28/20 at 0045, STAT ketorolac (TORADOL) injection 30 mg Given 03/27/2020 8:29 PM CDT 30 mg 30 mg, Slow IV Push, ONCE, 1 dose, 03/27/20 at 2115, DOUGLAS, 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
[2020-05-08] MEDS ORDERED: LEVALBUTEROL 1.25 MG/3 ML NEB ONE (01:28)
[2020-05-08] MEDS ORDERED: dexAMETHasone 10 MG/ML VIAL ONE (01:28)
[2020-05-08] MEDS ORDERED: IPRATROPIUM BROM 0.5MG/2.5ML ONE ×3 (01:28→13:41)
[2020-05-08] MEDS ORDERED: CEFTRIAXONE/SWI 1gm 1 GM/10 ML SYR ONE (01:28)
[2020-05-08 01:53] LABS: Urine Blood TRACE (NEG); Urine Glucose NEGATIVE (NEG); Urine Protein NEGATIVE (NEG); Urine Specific Gravity 1.025 (1.005-1.030); Urine pH 6.5 (5.0-7.0)
[2020-05-08 01:53] LABS: Urine Specific Gravity 1.025 (1.005-1.030)
[2020-05-08 02:07] LABS: Absolute Lymphocytes (CBC) 2.1 K/uL (0.7-4.9); Basophils % 0.9 % (0-1.3); Hematocrit 36.1 % (36.0-45.0); Lymphocytes % 40.3 % (15.3-44.8); MPV 8.1 fL (7.6-11.3)
[2020-05-08 02:13] LABS: ALT/SGPT 27 U/L (12-78); AST/SGOT 18 U/L (15-37); Albumin 3.6 g/dL (3.4-5.0); Alkaline Phosphatase 110 U/L (45-117); BUN Blood Urea Nitrogen 13 mg/dL (7-18); Bicarbonate 29 mmol/L (21-32); Bilirubin Direct < 0.1 mg/dL (0-0.2); Bilirubin Total 0.2 mg/dL (0.2-1.0); Glucose Level 82 mg/dL (74-106); Lipase 244 U/L (73-393); Magnesium 2.2 mg/dL (1.8-2.4); NT PRO-BNP 53 pg/mL (<125); Potassium 3.9 mmol/L (3.5-5.1); Protein, Total 8.3 g/dL (6.4-8.2); Sodium Level 142 mmol/L (136-145); Troponin (Emerg Dept Use Only) < 0.02 ng/mL (0.0-0.045)
[2020-05-08] MEDS ORDERED: AZITHROMYCIN 500 MG INJ IVPB ONE (02:29)
[2020-05-08] MEDS ORDERED: NA CHLORIDE 0.9% 250 ML ONE (02:29)
--- NOTE | 2020-05-08 02:41 | EDPHYS ---
Physician Documentation [facility] Name: Elba Wells Age: 24 yrs Sex: Female : 1995 Arrival Date: 05/08/2020 Time: 00:50 Bed 27 Private MD: ED Physician Ariel Solomon HPI: 05/08 01:12 This 24 yrs old Female presents to ER via Ambulatory with complaints of Cough, sada Congestion, Shortness Of Breath, Abdominal Pain. 01:12 The patient or guardian reports cough, that is constant. Onset: The symptoms/episode sada began/occurred 2 day(s) ago. Severity of symptoms: At their worst the symptoms were moderate, in the emergency department the symptoms are unchanged. Modifying factors: The symptoms are alleviated by nebulizer treatment, the symptoms are aggravated by exertion, talking. Associated signs and symptoms: Pertinent positives: chest pain, fever, rhinorrhea. The patient has experienced similar episodes in the past, multiple times. 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 - Social history:: Smoking status: Patient denies any tobacco usage or history of. ROS: 01:14 Constitutional: Negative for fever, chills, and weight loss, Eyes: Negative for injury, sada pain, redness, and discharge, ENT: Negative for injury, pain, and discharge, Neck: Negative for injury, pain, and swelling, Cardiovascular: Negative for chest pain, palpitations, and edema, Abdomen/GI: Negative for abdominal pain, nausea, vomiting, diarrhea, and constipation, Back: Negative for injury and pain, : Negative for injury, bleeding, discharge, and swelling, MS/Extremity: Negative for injury and deformity, Skin: Negative for injury, rash, and discoloration, Neuro: Negative for headache, weakness, numbness, tingling, and seizure, Psych: Negative for depression, anxiety, suicide ideation, homicidal ideation, and hallucinations, Allergy/Immunology: Negative for hives, rash, and allergies, Endocrine: Negative for neck swelling, polydipsia, polyuria, polyphagia, and marked weight changes, Hematologic/Lymphatic: Negative for swollen nodes, abnormal bleeding, and unusual bruising. 01:14 Respiratory: Positive for cough, shortness of breath, at rest. Exam: 01:14 Constitutional: This is a well developed, well nourished patient who is awake, alert, sada and in no acute distress. Head/Face: Normocephalic, atraumatic. Eyes: Pupils equal round and reactive to light, extra-ocular motions intact. Lids and lashes normal. Conjunctiva and sclera are non-icteric and not injected. Cornea within normal limits. Periorbital areas with no swelling, redness, or edema. ENT: Nares patent. No nasal discharge, no septal abnormalities noted. Tympanic membranes are normal and external auditory canals are clear. Oropharynx with no redness, swelling, or masses, exudates, or evidence of obstruction, uvula midline. Mucous membranes moist. Neck: Trachea midline, no thyromegaly or masses palpated, and no cervical lymphadenopathy. Supple, full range of motion without nuchal rigidity, or vertebral point tenderness. No Meningismus. Chest/axilla: Normal chest wall appearance and motion. Nontender with no deformity. No lesions are appreciated. Cardiovascular: Regular rate and rhythm with a normal S1 and S2. No gallops, murmurs, or rubs. Normal PMI, no JVD. No pulse deficits. Abdomen/GI: Soft, non-tender, with normal bowel sounds. No distension or tympany. No guarding or rebound. No evidence of tenderness throughout. Back: No spinal tenderness. No costovertebral tenderness. Full range of motion. Skin: Warm, dry with normal turgor. Normal color with no rashes, no lesions, and no evidence of cellulitis. MS/ Extremity: Pulses equal, no cyanosis. Neurovascular intact. Full, normal range of motion. Neuro: Awake and alert, GCS 15, oriented to person, place, time, and situation. Cranial nerves II-XII grossly intact. Motor strength 5/5 in all extremities. Sensory grossly intact. Cerebellar exam normal. Normal gait. Psych: Awake, alert, with orientation to person, place and time. Behavior, mood, and affect are within normal limits. 01:14 Respiratory: the patient does not display signs of respiratory distress, Respirations: labored breathing, Breath sounds: decreased breath sounds, rhonchi, Respiratory rate: 20 01:38 ECG was reviewed by the Attending Physician. [facility] Vital Signs: 00:58 BP 110 / 76; Pulse 92; Resp 18; Temp 98.3(O); Pulse Ox 98% on R/A; Weight 95.71 kg (R); sg Height 5 ft. 6 in. (167.64 cm) (R); Pain 6/10; 02:23 BP 102 / 71; Pulse 90; Resp 20; Pulse Ox 100% ; rr5 03:15 BP 104 / 59; Pulse 85; Resp 19; Temp 98; Pulse Ox 98% ; rr5 00:58 Body Mass Index 34.06 (95.71 kg, 167.64 cm) sg MDM: 01:03 Patient medically screened. [facility] 01:15 Differential diagnosis: Bronchitis acute pericarditis, cholecystitis, Cholelithiasis sada esophagitis, gastritis, hiatal hernia, pneumonia, pneumothorax, pulmonary embolus, unstable angina, Pneumothorax pulmonary edema, Pulmonary Embolism reactive airway disease. Antibiotic administration: Rocephin and Zithromax given. HEART Score: History: Slightly Suspicious (0), ECG: Normal (0), Age: < or = 45 years (0), Risk Factors: No Risk Factors Known (0), Troponin: < or = 1 x Normal Limit (0), Total Score = 0. The patient's Wells Deep Vein Thrombosis Score was calculated as follows: Total Score: 0. This patient was found to be at low risk for a deep vein thrombosis by using the Well's assessment criteria Total Score: 0-2 Pts- Low Risk. Differential Diagnosis: Bronchitis Influenza Upper Respiratory Infection Sinusitis Pharyngitis Pneumonia. The patient's pulmonary embolism risk score was calculated as follows: Total Score: 0-2 points. This patient was found to be at low risk for a pulmonary embolism by using the Well's assessment criteria Total Score: 0-2 points. This patient was found to be at low risk for a pulmonary embolism by using the Well's assessment criteria. ALEXY Risk Score: TOTAL SCORE = 0. Immunization status:. Data reviewed: vital signs, nurses notes, lab test result(s), EKG, radiologic studies, CT scan, plain films. Data interpreted: awake overnight monitor: rate is 92 beats/min, rhythm is regular, Pulse oximetry: on room air is 98 %. Test interpretation: by ED physician or midlevel provider: ECG, plain radiologic studies. 05/08 01:12 Order name: Basic Metabolic Panel; Complete Time: 02:34 [facility] 05/08 01:12 Order name: CBC with Diff; Complete Time: 02:34 [facility] 05/08 01:12 Order name: LFT's; Complete Time: 02:34 [facility] 05/08 01:12 Order name: Magnesium; Complete Time: 02:34 [facility] 05/08 01:12 Order name: NT PRO-BNP; Complete Time: 02: [facility] 05/08 01:12 Order name: Troponin (emerg Dept Use Only); Complete Time: 02:34 [facility] 05/08 01:12 Order name: Lipase; Complete Time: 02:34 [facility] 05/08 01:12 Order name: D-Dimer; Complete Time: 02:34 [facility] 05/08 01:12 Order name: Blood Culture Adult (2) [facility] 05/08 01:18 Order name: Flu [facility] 05/08 01:18 Order name: COVID-19 [facility] 05/08 01:41 Order name: Urine Dipstick--Ancillary (enter results); Complete Time: 02:34 [facility] 05/08 01:42 Order name: Urine --Ancillary (enter results); Complete Time: 02:34 [facility] 05/08 07:12 Order name: SARS-COV-2 RT PCR [facility] 05/08 01:12 Order name: XRAY Chest (1 view) [facility] 05/08 01:12 Order name: EKG; Complete Time: 01:13 [facility] 05/08 01:12 Order name: Cardiac monitoring; Complete Time: 02:13 [facility] 05/08 01:12 Order name: EKG - Nurse/Tech; Complete Time: 02: [facility] 05/08 01:12 Order name: IV Saline Lock; Complete Time: 02: [facility] 05/08 01:12 Order name: Labs collected and sent; Complete Time: 02: [facility] 05/08 01:12 Order name: O2 Per Protocol; Complete Time: 02: [facility] 05/08 01:12 Order name: O2 Sat Monitoring; Complete Time: 02: [facility] 05/08 01:12 Order name: Urine Dipstick-Ancillary (obtain specimen); Complete Time: :42 [facility] 05/08 08:40 Order name: [facility] 05/08 01:12 Order name: Urine Test (obtain specimen); Complete Time: :42 [facility] EC:38 Rate is 68 beats/min. Rhythm is regular. QRS Alpha is Normal. FL interval is normal. QRS sada interval is normal. QT interval is normal. No Q waves. T waves are Normal. No ST changes noted. Clinical impression: NSR w/ Non-specific ST/T Changes and No evidence of ischemia. Interpreted by me. Reviewed by me. Administered Medications: 01:40 Drug: Decadron - Dexamethasone 6 mg Route: IVP; Site: right hand; rr5 02:40 Follow up: Response: No adverse reaction rr5 02:00 Drug: Rocephin 1 grams Route: IV; Rate: per protocol; Site: right hand; rr5 02:30 Follow up: Response: No adverse reaction; IV Status: Completed infusion; IV Intake: [id number] 02:02 Drug: Xopenex 3.75 mg Route: Inhalation; rr5 03:00 Follow up: Response: No adverse reaction rr5 02:02 Drug: AtroVENT Aerosol 0.5 mg Route: Inhalation; rr5 03:00 Follow up: Response: No adverse reaction rr5 02:20 Dru mg of (Zithromax 500 mg, NS 0.9% 250 ml) Route: IVPB; Infused Over: 1 hrs; rr5 Site: right hand; 03:20 Follow up: Response: No adverse reaction; IV Status: Completed infusion; IV Intake: jb4 250ml 03:13 Drug: Lovenox 1 mg/kg Route: Sub-Q; Site: right lower abdomen; rr5 04:00 Follow up: Response: No adverse reaction jb4 Disposition: 05/08/20 02:40 Hospitalization ordered by Gabo Mays for Observation. Preliminary diagnosis are Dyspnea - elevated d-dimer, iodine allergic, Acute upper respiratory infection, unspecified, Asthma. - Bed requested for Telemetry/MedSurg (observation). - Status is Observation. iw - Condition is Fair. - Problem is new. - Symptoms have improved. Signatures: Dispatcher [employer] [facility] Amira Knowles Steven, Ariel Munguia RN, MD MD cha Williams, Irene, RN BALDOMERO iw Bushra Almeida, RN RN tl1 Reji Gillis RN RN ja1 Driss Fuchs, RN RN rr5 Lencho Sandhu RN jb4 Corrections: (The following items were deleted from the chart) 03:01 02:40 Hospitalization Ordered by Gabo Mays for Observation. Preliminary diagnosis tl1 is Dyspnea - elevated d-dimer, iodine allergic; Acute upper respiratory infection, unspecified; Asthma. Bed requested for Telemetry/MedSurg (observation). Status is Observation. Condition is Fair. Problem is new. Symptoms have improved. [facility] 11:22 03:01 05/08/2020 02:40 Hospitalization Ordered by Gabo Mays for Observation. bd Preliminary diagnosis is Dyspnea - elevated d-dimer, iodine allergic; Acute upper respiratory infection, unspecified; Asthma. Bed requested for RUST ER HOLD. Status is Observation. Condition is Fair. Problem is new. Symptoms have improved. tl1 12:50 11:22 05/08/2020 02:40 Hospitalization Ordered by Gabo Mays for Observation. bd Preliminary diagnosis is Dyspnea - elevated d-dimer, iodine allergic; Acute upper respiratory infection, unspecified; Asthma. Bed requested for Telemetry/MedSurg (observation). Status is Observation. Condition is Fair. Problem is new. Symptoms have improved. bd 13:42 12:50 05/08/2020 02:40 Hospitalization Ordered by Gabo Mays for Observation. ja1 Preliminary diagnosis is Dyspnea - elevated d-dimer, iodine allergic; Acute upper respiratory infection, unspecified; Asthma. Bed requested for RUST ER HOLD. Status is Observation. Condition is Fair. Problem is new. Symptoms have improved. bd 14:34 13:42 05/08/2020 02:40 Hospitalization Ordered by Gabo Mays for Observation. iw Preliminary diagnosis is Dyspnea - elevated d-dimer, iodine allergic; Acute upper respiratory infection, unspecified; Asthma. Bed requested for Telemetry/MedSurg (observation). Status is Observation. Condition is Fair. Problem is new. Symptoms have improved. ja1
--- NOTE | 2020-05-08 02:41 | ER ---
Nurse's Notes [facility] Name: Elba Wells Age: 24 yrs Sex: Female : 1995 Arrival Date: 05/08/2020 Time: 00:50 Bed 27 Private MD: Diagnosis: Dyspnea-elevated d-dimer, iodine allergic;Acute upper respiratory infection, unspecified;Asthma Presentation: 05/08 00:58 Chief complaint: Patient states: pt reports productive cough, with thick green sputum, sg states the sputum has gotten more of a clear color starting yesterday morning. 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 no other symptoms reported for triage at this time. Coronavirus screen: chills, cough unrelated to allergies, shortness of breath, Client presents with at least one sign or symptom that may indicate coronavirus-19. Standard/surgical mask placed on the client. Provider contacted for isolation considerations. Ebola Screen: Patient negative for fever greater than or equal to 101.5 degrees Fahrenheit, and additional compatible Ebola Virus Disease symptoms Patient denies exposure to infectious person. Patient denies travel to an Ebola-affected area in the 21 days before illness onset. No symptoms or risks identified at this time. Resp Distress? No respiratory distress is noted at this time. Initial Sepsis Screen: Does the patient meet any 2 criteria? HR > 90 bpm. Does the patient have a suspected source of infection? Yes: Acute abdominal pain. Risk Assessment: Do you want to hurt yourself or someone else? Patient reports no desire to harm self or others. Onset of symptoms was May 06, 2020. Care prior to arrival: None. Activity prior to arrival: None. Mechanism of Injury: No Mechanism of Injury. Transition of care: patient was not received from another setting of care. 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 - Social history:: Smoking status: Patient denies any tobacco usage or history of. Screenin:01 Abuse screen: Denies threats or abuse. Denies injuries from another. Nutritional rr5 screening: No deficits noted. Tuberculosis screening: No symptoms or risk factors identified. Fall Risk None identified. Total Mcfadden Fall Scale indicates No Risk (0-24 pts). Assessment: 01:00 General: Appears in no apparent distress. uncomfortable, Behavior is calm, cooperative, rr5 appropriate for age, Reports chills for feeling ill for fatigue for. 01:00 Pain: Complains of pain in right upper quadrant Pain currently is 6 out of 10 on a pain rr5 scale. Quality of pain is described as aching, Pain began gradually, Is intermittent. Neuro: Level of Consciousness is awake, alert, obeys commands, Oriented to person, place, time, situation. Cardiovascular: Reports shortness of breath, Capillary refill < 3 seconds Patient's skin is warm and dry. Respiratory: Reports shortness of breath cough that is pain with cough Airway is patent Respiratory effort is even, unlabored, Respiratory pattern is regular, symmetrical, Sputum is thick, green GI: No signs and/or symptoms were reported involving the gastrointestinal system. : No signs and/or symptoms were reported regarding the genitourinary system. EENT: No signs and/or symptoms were reported regarding the EENT system. Derm: Skin is intact, is healthy with good turgor, Skin temperature is warm. Musculoskeletal: Circulation, motion, and sensation intact. Capillary refill < 3 seconds. 02:23 Reassessment: Patient appears in no apparent distress at this time. Patient is alert, rr5 oriented x 3, equal unlabored respirations, skin warm/dry/pink. awaiting for results. 02:40 Reassessment: Patient appears in no apparent distress at this time. Patient is alert, rr5 oriented x 3, equal unlabored respirations, skin warm/dry/pink. for admission hospitalist at bedside. Vital Signs: 00:58 BP 110 / 76; Pulse 92; Resp 18; Temp 98.3(O); Pulse Ox 98% on R/A; Weight 95.71 kg (R); sg Height 5 ft. 6 in. (167.64 cm) (R); Pain 6/10; 02:23 BP 102 / 71; Pulse 90; Resp 20; Pulse Ox 100% ; rr5 03:15 BP 104 / 59; Pulse 85; Resp 19; Temp 98; Pulse Ox 98% ; rr5 00:58 Body Mass Index 34.06 (95.71 kg, 167.64 cm) ED Course: 00:50 Patient arrived in ED. cf2 01:00 Driss Fuchs, RN is Primary Nurse. rr5 01:01 Triage completed. sg 01:01 Patient has correct armband on for positive identification. Bed in low position. Call rr5 light in reach. Pulse ox on. NIBP on. 01:03 Ariel Solomon MD is Attending Physician. sada 01:05 Arm band placed on. rr5 01:28 XRAY Chest (1 view) In Process Unspecified. EDMS 01:30 EKG done, by ED staff, reviewed by Ariel Solomon MD. rr5 01:35 Urine collected: clean catch specimen, clear. rr5 01:45 Inserted saline lock: 20 gauge in right hand, using aseptic technique. Blood collected. rr5 01:45 First set of blood cultures drawn by hi. rr5 02:05 Flu and/or RSV swab sent to lab. covid. rr5 02:06 Notified ED physician of a critical lab result(s). D Dimer 1331. sg 02:38 Gabo Mays is Hospitalizing Provider. sada 02:44 No provider procedures requiring assistance completed. Patient admitted, IV remains in rr5 place. intact, No redness/swelling at site. Administered Medications: 01:40 Drug: Decadron - Dexamethasone 6 mg Route: IVP; Site: right hand; rr5 02:40 Follow up: Response: No adverse reaction rr5 02:00 Drug: Rocephin 1 grams Route: IV; Rate: per protocol; Site: right hand; rr5 02:30 Follow up: Response: No adverse reaction; IV Status: Completed infusion; IV Intake: [id number] 02:02 Drug: Xopenex 3.75 mg Route: Inhalation; rr5 03:00 Follow up: Response: No adverse reaction rr5 02:02 Drug: AtroVENT Aerosol 0.5 mg Route: Inhalation; rr5 03:00 Follow up: Response: No adverse reaction rr5 02:20 Dru mg of (Zithromax 500 mg, NS 0.9% 250 ml) Route: IVPB; Infused Over: 1 hrs; rr5 Site: right hand; 03:20 Follow up: Response: No adverse reaction; IV Status: Completed infusion; IV Intake: jb4 250ml 03:13 Drug: Lovenox 1 mg/kg Route: Sub-Q; Site: right lower abdomen; rr5 04:00 Follow up: Response: No adverse reaction jb4 Intake: 02:30 IV: 10ml; Total: 10ml. rr5 03:20 IV: 250ml; Total: 260ml. jb4 Outcome: 02:40 Decision to Hospitalize by Provider. sada 03:30 Admitted to ER Hold. [facility] further documentation. jb4 03:30 Condition: stable 03:30 Discharge instructions given to patient, Instructed on the need for admit, Demonstrated understanding of instructions. 14:34 Patient left the ED. iw Signatures: Dispatcher [employer] EDWade Abrams, RN Ariel Munguia MD MD cha Williams, Irene, RN RN iw Bryson, James, RN RN jb4 Driss Fuchs RN RN rr5 Mi Prieto cf2 Corrections: (The following items were deleted from the chart) 02:41 02:23 BP 102 / 71; Pulse 90bpm; Resp 30bpm; Pulse Ox 100%; rr5 rr5
[2020-05-08] MEDS ORDERED: ENOXAPARIN 100 MG/ML SYR SQ ONE (02:52)
--- NOTE | 2020-05-08 03:25 | P.HP ---
Certification for Inpatient Patient admitted to: Observation With expected LOS: <2 Midnights Patient will require the following post-hospital care: None Practitioner: I am a practitioner with admitting privileges, knowledge of patient current condition, hospital course, and medical plan of care. Services: Services provided to patient in accordance with Admission requirements found in Title 42 Section 412.3 of the Code of Federal Regulations <NeriIvan oreilly - Last Filed: 05/08/20 03:21> Patient History Date of Service: 05/08/20 Primary Care Provider: [facility] Reason for admission: Rule out PE History of Present Illness: 24-year-old female with history of asthma presents emergency department for shortness of breath. Patient reports she has been having more frequent asthma flares almost weekly for the past couple of months. Patient reports that she was recently prescribed dissecting inhaler former primary care doctor the [facility] but she is unaware of which inhaler this is. Patient was worked up in the ER extensively, given IV steroids, nebulizers, IV Rocephin and Zith romax. White blood cell count within normal limits, mild increase in eosinophils. D-dimer level elevated 1331, patient unable to tolerate IV contrast due to allergy, ED provider wishes to admit patient for V/Q scan in the morning. - Past Medical/Surgical History -: Asthma -: x4 Psychosocial/ Personal History: Patient lives at home with her daughter - Family History Father -: Heart disease Mother -: Diabetes - Social History Smoking Status: Never smoker Alcohol use: Yes CD- Drugs: No Caffeine use: Yes Place of Residence: Home <Ivan Gaitan - Last Filed: 05/08/20 03:21> Date of Service: 05/08/20 <Dagoberto Byers - Last Filed: 05/09/20 07:01> Allergies Iodinated Contrast Media Allergy (Verified 05/08/20 06:12) Hives Iodine and Iodide Containing Produc Allergy (Verified 05/08/20 06:12) Hives shellfish derived Allergy (Verified 05/08/20 06:12) Anaphylaxis Review of Systems 10-point ROS is otherwise unremarkable Respiratory: Cough, Shortness of Breath <Ivan Gaitan - Last Filed: 05/08/20 03:21> Physical Examination - Physical Exam General: Alert, In no apparent distress HEENT: Atraumatic, PERRLA, Mucous membr. moist/pink Neck: Supple, 2+ carotid pulse no bruit, No LAD Respiratory: Normal air movement, Expiratory wheezes (Mild bilateral) Cardiovascular: Regular rate/rhythm, Normal S1 S2 Gastrointestinal: Normal bowel sounds, No tenderness Musculoskeletal: No tenderness Integumentary: No rashes Neurological: Normal gait, Normal speech, Normal strength at 5/5 x4 extr, Normal tone, Normal affect - Studies Laboratory Data (last 24 hrs) 05/08/20 01:45: WBC 5.3, Hgb 12.2, Hct 36.1, Plt Count 315 05/08/20 01:45: Sodium 142, Potassium 3.9, BUN 13, Creatinine 0.72, Glucose 82, Magnesium 2.2, Total Bilirubin 0.2, AST 18, ALT 27, Alkaline Phosphatase 110, Lipase 244 Microbiology Data (last 24 hrs): 05/08/20 01:50 Nasopharnyx Influenza Type A Antigen Screen - Final 05/08/20 01:50 Nasopharnyx Influenza Type B Antigen Screen - Final <Ivan Gaitan - Last Filed: 05/08/20 03:21> - Studies Microbiology Data (last 24 hrs): 05/08/20 01:50 Nasopharnyx Influenza Type A Antigen Screen - Final 05/08/20 01:50 Nasopharnyx Influenza Type B Antigen Screen - Final <Dagoberto Byers - Last Filed: 05/09/20 07:01> Assessment and Plan - Plan Assessment Elevated D-dimer with shortness of breath Asthma exacerbation Plan Elevated D-dimer with shortness of breath: Patient allergic to iodine, V/Q scan ordered for morning. Patient given 1 milligram/kilogram Lovenox in the emergency department. No sign of DVT in the lower extremity. Patient not on oral contraceptives, does not smoke. Prior to her elevated D-dimer very low likelihood for pulmonary embolism. Asthma exacerbation: Continue scheduled nebs and IV steroids until discharge. Will need to follow with primary care doctor for escalation of asthma care. Discharge Plan: Home Plan to discharge in: 24 Hours - Advance Directives Does patient have a Living Will: No Does patient have a Durable POA for Healthcare: No - Code Status/Comfort Care Code Status Assessed: Yes (Full code) Critical Care: No Time Spent Managing Pts Care (In Minutes): 55 <Ivan Gaitan - Last Filed: 05/08/20 03:21> Date of Service: 05/08/20 Agree with above findings. Patient with an acute asthma exacerbation. Continue with nebs, steroids, and antibiotics. Anticipate discharge home over the next 24-48 hr. Patient's D-dimer is also elevated. V/Q scan is pending. Also will check peak flows. She has coughing spells whenever she takes a deep breath. Hopefully we can get her peak flow to be greater than 250 prior to discharge. <Dagoberto Byers - Last Filed: 05/09/20 07:01>
[2020-05-08] MEDS ORDERED: HYDROCODONE/APAP 5/325 MG TAB PO PRN (05:28)
[2020-05-08] MEDS: METHYLPREDNISOLONE 40 MG INJ IV SCH ×4 (06:00→23:17)
[2020-05-08 06:10] VITALS: BMI 34.0
[2020-05-08] MEDS ORDERED: METHYLPREDNISOLONE 40 MG INJ ONE ×2 (06:29→12:48)
--- NOTE | 2020-05-08 07:07 | RAD REPORT ---
EXAM DESCRIPTION: RAD - Chest Single View - 05/08/2020 1:28 am CLINICAL HISTORY: Cough;Dyspnea COMPARISON: Two view chest December 2016 TECHNIQUE: AP portable chest image was obtained 05/08/2020 1:28 am . FINDINGS: Lung volumes are reduced compared to prior study. No focal mass or consolidation. No signi ficant interstitial edema or infiltrate identifiable. Trachea is midline. Heart and vasculature are n ormal. No measurable pleural effusion and no pneumothorax. No acute bony abnormality seen. No acute a ortic findings suspected. IMPRESSION: No acute cardiopulmonary process. Interstitial pattern is accentuated by body habitus and shallow inspiration affects. Lung markings ar e not outside of normal range for exam limitations.
[2020-05-08] MEDS ORDERED: ALBUTEROL 2.5 MG/3 ML NEB SOL ONE ×2 (07:57→13:41)
--- NOTE | 2020-05-08 08:39 | RAD REPORT ---
EXAM DESCRIPTION: NM - Vent Perfusion VQ Scan - 05/08/2020 8:27 am CLINICAL HISTORY: R/O PE, chest pain, shortness of breath COMPARISON: Portable chest May 08 TECHNIQUE: The patient was administered 20.28 mCi Xenon 133 gas with posterior projection inspiratio n, equilibrium, and washout views obtained. The patient was then administered 7.37 mCi Tc-99m MAA lab eled RBCs followed by standard 8 view protocol. FINDINGS: There is good distribution of the Xenon with no ventilation defects identified. Mild diffu se air trapping seen throughout both lung canales. Perfusion images show no defects suspicious for pulmonary emboli. IMPRESSION: Normal perfusion imaging. No evidence for pulmonary embolic disease. Mild diffuse air trapping throughout the lung canales.
[2020-05-08] MEDS: IPRATROPIUM BROM 0.5MG/2.5ML NEB SCH ×3 (09:15→20:50)
[2020-05-08] MEDS: ALBUTEROL 2.5 MG/3 ML NEB SOL NEB SCH ×3 (09:15→20:50)
[2020-05-08] MEDS ORDERED: HYDROCODONE/CHLORPHEN 5 ML/OSYR PO PRN (15:34)
[2020-05-08] MEDS: BENZONATATE 100 MG CAP PO PRN ×2 (15:44→23:17)
[2020-05-08] MEDS ORDERED: HYDROCODONE/CHLORPHEN 5 ML/OSYR PO ONE (15:45)
[2020-05-09] MEDS ORDERED: ZOLPIDEM TARTRATE 5 MG TABLET PO ONE (00:35)
[2020-05-09] MEDS: IPRATROPIUM BROM 0.5MG/2.5ML NEB SCH ×3 (02:30→13:05)
[2020-05-09] MEDS: ALBUTEROL 2.5 MG/3 ML NEB SOL NEB SCH ×3 (02:30→13:05)
--- NOTE | 2020-05-09 06:07 | EKG ---
Test Date: 2020-05-08 Test Time: 01:26:20 Psychology Associate: RR MEASUREMENT RESULTS: Intervals: Rate: 68 AK: 138 QRSD: 76 QT: 378 QTc: 401 [place]: P: 61 AK: 138 QRS: 70 T: 32 INTERPRETIVE STATEMENTS: Normal sinus rhythm Normal ECG Compared to ECG 01/06/2017 00:15:40 Sinus bradycardia no longer present Sinus arrhythmia no longer present Electronically Signed On 05-09-20 06:03:20 C UNIX DEVELOPER by Chai Villa
[2020-05-09] MEDS: METHYLPREDNISOLONE 40 MG INJ IV SCH ×3 (06:16→17:09)
--- NOTE | 2020-05-09 07:02 | P.PN ---
Subjective Date of Service: 05/08/20 Patient doing well with no new complaints. V/Q scan is pending. Anticipate discharge home later today if she continues to improve Review of Systems 10-point ROS is otherwise unremarkable Physical Examination - Vital Signs Temperature: 97.4 F Blood Pressure: 103/51 Pulse: 76 Respirations: 20 Pulse Ox (%): 97 - Physical Exam General: Alert, In no apparent distress, Oriented x3 HEENT: Atraumatic, PERRLA, EOMI Neck: Supple, JVD not distended Respiratory: Expiratory wheezes Cardiovascular: Regular rate/rhythm, Normal S1 S2, No murmurs Gastrointestinal: Normal bowel sounds, Soft and benign, Non-distended, No tenderness Musculoskeletal: No clubbing, No swelling, No tenderness Integumentary: No rashes Neurological: Normal speech, Normal tone, Normal affect Lymphatics: No axilla or inguinal lymphadenopathy - Studies Microbiology Data (last 24 hrs): 05/08/20 01:50 Nasopharnyx Influenza Type A Antigen Screen - Final 05/08/20 01:50 Nasopharnyx Influenza Type B Antigen Screen - Final Medications List Reviewed: Yes Assessment & Plan - Problems (Diagnosis) (1) Acute asthma exacerbation Current Visit: Yes Status: Acute - Plan Plan: 1. Continue with albuterol and Atrovent nebs 2. Continue with IV steroids 3. Outpatient pulmonary function testing 4. Pulmonary follow-up if symptoms do not improve 5. Room air O2 sats 6. Repeat chest x-ray in the morning 7. Peak flows as needed 8. GI and DVT prophylaxis Discharge Plan: Home Plan to discharge in: 24 Hours - Advance Directives Does patient have a Living Will: No Does patient have a Durable POA for Healthcare: No - Code Status/Comfort Care Code Status Assessed: Yes Code Status: Full Code Critical Care: No Time Spent Managing PTS Care (In Minutes): 35
--- NOTE | 2020-05-09 07:07 | P.DS ---
Discharge Date: 05/09/20 Primary Care Provider: Danelle spicer Disposition: ROUTINE DISCHARGE Discharge Condition: GOOD Reason for Admission: Rule out PE - Problems (1) Acute asthma exacerbation Status: Acute Brief History of Present Illness: Patient is a 24-year-old female with history of asthma presents emergency department for shortness of breath. Patient reports she has been having more frequent asthma flares almost weekly for the past couple of months. Patient reports that she was recently prescribed dissecting inhaler former primary care doctor the [facility] but she is unaware of which inhaler this is. Patient was worked up in the ER extensively, given IV steroids, nebulizers, IV Rocephin and Zithromax. White blood cell count within normal limits, mild increase in eosinophils. D-dimer level elevated 1331, patient unable to tolerate IV contrast due to allergy, ED provider wishes to admit patient for V/Q scan in the morning. Hospital Course: Patient was treated with steroids, nebulizers, and antibiotics. Patient is clinically doing much better. At this time, the patient is stable for discharge home. Vital Signs/Physical Exam: Temp Pulse Resp BP Pulse Ox 97.4 F 76 20 103/51 L 97 05/09/20 07:02 05/09/20 07:02 05/09/20 07:02 05/09/20 07:02 05/09/20 07:02 General: Alert, In no apparent distress, Oriented x3 Laboratory Data at Discharge: WBC 5.3 K/uL (4.3-10.9) 05/08/20 01:45 Hgb 12.2 g/dL (12.0-15.0) 05/08/20 01:45 Hct 36.1 % (36.0-45.0) 05/08/20 01:45 Plt Count 315 K/uL (152-406) 05/08/20 01:45 Sodium 142 mmol/L (136-145) 05/08/20 01:45 Potassium 3.9 mmol/L (3.5-5.1) 05/08/20 01:45 BUN 13 mg/dL (7-18) 05/08/20 01:45 Creatinine 0.72 mg/dL (0.55-1.3) 05/08/20 01:45 Glucose 82 mg/dL (74-106) 05/08/20 01:45 Magnesium 2.2 mg/dL (1.8-2.4) 05/08/20 01:45 Total Bilirubin 0.2 mg/dL (0.2-1.0) 05/08/20 01:45 AST 18 U/L (15-37) 05/08/20 01:45 ALT 27 U/L (12-78) 05/08/20 01:45 Alkaline Phosphatase 110 U/L (45-117) 05/08/20 01:45 Lipase 244 U/L (73-393) 05/08/20 01:45 Home Medications: Albuterol Inhaler [Ventolin Inhaler*] 2 puff IH Q6H PRN #1 hfa.aer.ad 05/09/20 Albuterol Sulfate [Albuterol Sulfate 0.083% Neb Soln] 2.5 mg NEB Q6HP PRN #2 box 05/09/20 Cefdinir [Omnicef] 300 mg PO BID #10 capsule 05/09/20 Cetirizine HCl [Zyrtec] 10 mg PO DAILY #30 tab.rapdis 05/09/20 Methylprednisolone [Medrol dosepack] 4 mg PO DIRECTED #1 juanita 05/09/20 New Medications: Albuterol Sulfate [Albuterol Sulfate 0.083% Neb Soln] 2.5 mg NEB Q6HP PRN #2 box PRN Reason: Wheezing Methylprednisolone [Medrol dosepack] 4 mg PO DIRECTED #1 juanita Cefdinir [Omnicef] 300 mg PO BID #10 capsule Albuterol Inhaler [Ventolin Inhaler*] 2 puff IH Q6H PRN #1 hfa.aer.ad PRN Reason: Shortness Of Breath Cetirizine HCl [Zyrtec] 10 mg PO DAILY #30 tab.rapdis Patient Discharge Instructions: OK TO DC IV AND DC HOME. FOLLOW-UP WITH PRIMARY CARE PROVIDER IN 1-2 WEEKS. FOLLOW-UP WITH Pulmonary IN 1-2 WEEKS. RETURN TO THE ER IF symptoms worsen. CALL or TEXT DR. FUNG AT [phone] IF ANY QUE STIONS REGARDING HOSPITAL STAY. PLEASE CALL THE FLOOR AT [phone] IF ANY MEDICATION OR NURSING QUESTIONS. 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
--- NOTE | 2020-05-09 09:10 | RAD REPORT ---
EXAM DESCRIPTION: CT - Thorax Wo Con - 05/09/2020 8:56 am CLINICAL HISTORY: PNEUMONIA; HISTORY OF ASTHMA WITH PERSISTENT COUGH COMPARISON: Vent Perfusion VQ Scan dated 05/08/2020; Chest Single View dated 05/08/2020; Abdomen P cassidy Wo Contrast dated 06/27/2017 TECHNIQUE: Axial 5 mm thick images of the chest were obtained without IV contrast. All CT scans are performed using dose optimization technique as appropriate and may include automated exposure control or mA/KV adjustment according to patient size. FINDINGS: No mass or infiltrate in the lung parenchyma. No pleural thickening or pleural effusion. N o pneumothorax. No abnormal mediastinal or hilar masses or lymphadenopathy seen. No gross aortic or pulmonary artery finding suspected. Assessment is limited in the absence of IV contrast. No cardiomegaly or pericardi al effusion. No chest wall mass or abnormal axillary lymphadenopathy. Partially imaged gallbladder shows at least 1 large gallstone. IMPRESSION: Negative non-contrast CT chest examination. Partially imaged upper abdomen shows cholelithiasis. This is not a new finding and the gallbladder is only partially imaged.
[2020-05-09 12:17] VITALS: O2SAT 94
[2020-05-09] MEDS: BENZONATATE 100 MG CAP PO PRN (13:52)
[2020-05-09 16:03] VITALS: BP 103/54; TEMP 98.7
== END 2020-05-09 17:30 | disposition home or self-care (01) | DRG 203 ==
LOC: ER 00:45 → OBSVTOIN 02:57 → ERHOLD 02:57 → 4TH 14:38
PROVIDERS: ADMIT Hospitalist; ATTEND Hospitalist
DX: J45.901 Unspecified asthma with (acute) exacerbation (principal); R79.1 Abnormal coagulation profile; Z88.8 Allergy status to other drugs, medicaments and biological substances; Z91.041 Radiographic dye allergy status; Z91.013 Allergy to seafood; Z20.828 Contact with and (suspected) exposure to other viral communicable diseases
CPT/HCPCS: 36415; 71045; 71250; 78582; 80048; 80076; 81003; 81025; 83690; 83735; 83880; 84484; 85025; 85379; 87040; 87804; 93005; 94010; 94640; 96365; 96372; 96375; 99285; A9540; A9558; J0456; J0696; J1100; J1650; J2920; J7050; U0003

== ENCOUNTER 2020-05-28 18:44 | Emergency (ER) | payer SELFPAY ==
--- OUTSIDE RECORDS SUMMARY | 2020-05-28 19:12 | XMS REPORT | Continuity of Care Document ---
:1995 Author Organization [facility] t Address [address] [place] [address] [address] [place] [address] Care Team Providers Name Role Phone Sam [...] 2020-03-27 2020-03-28 Emergency Sam Chase [id number] 19:22:00 00:39:00 Salina Aiken [id number] [place] [id number] [place] [id number] 2019-12-05 2019-12-05 Emergency MISHEL Hawkins [id number] 01:22:11 03:48:00 Ben Love Nelli [id number] [place] [id number] [place] [id number] 2019-11-15 2019-11-16 Emergency Sam Chase [facility] [id number] 19:21:57 00:00:00 [place]ina Nelli [id number] [place] [id number] [place] [id number] 2019-10-19 2019-10-19 Emergency Anil, [facility] [id number] 04:35:17 06:17:00 Mookie Aiken [id number] [place] [id number] [place] [id number] 2019-08-31 2019-08-31 [facility] [id number] 03:53:07 05:03:00 James Aiken [id number] [place] [id number] [place] [id number] 2019-01-29 2019-01-29 [facility] [id number] 15:09:14 18:22:00 Aníbal Aiken [id number] [place] [id number] [place] [id number] 2019-01-29 2019-01-29 Orders Doctor BRONWYN [id number] 00:00:00 00:00:00 Only Unassigned, FAUSTO [id number] [place] [facility] [id number] Results This patient has no known results.
[2020-05-28] MEDS ORDERED: FENTANYL CITR 100 MCG/2 ML ONE (19:25)
[2020-05-28 19:37] LABS: Urine Blood NEGATIVE (NEG); Urine Glucose NEGATIVE (NEG); Urine Protein NEGATIVE (NEG); Urine pH 5.5 (5.0-7.0)
[2020-05-28 19:49] LABS: Absolute Lymphocytes (CBC) 2.1 K/uL (0.7-4.9); Basophils % 0.6 % (0-1.3); Hematocrit 38.6 % (36.0-45.0); MPV 8.4 fL (7.6-11.3); RBC Red Blood Cell Count 4.48 M/uL (3.86-4.86)
[2020-05-28 20:03] LABS: BUN Blood Urea Nitrogen 11 mg/dL (7-18); Bicarbonate 27 mmol/L (21-32); Glucose Level 98 mg/dL (74-106); Potassium 3.8 mmol/L (3.5-5.1); Sodium Level 142 mmol/L (136-145)
[2020-05-28 20:07] LABS: ALT/SGPT 27 U/L (12-78); AST/SGOT 15 U/L (15-37); Albumin 3.9 g/dL (3.4-5.0); Alkaline Phosphatase 98 U/L (45-117); Bilirubin Direct < 0.1 mg/dL (0-0.2); Bilirubin Total 0.2 mg/dL (0.2-1.0); Lipase 256 U/L (73-393); Protein, Total 8.4 g/dL (6.4-8.2)
[2020-05-28 20:08] LABS: Urine Bacteria 20-50 /HPF (<20); Urine RBC <5 /HPF (NONE SEEN)
--- NOTE | 2020-05-28 20:27 | EDPHYS ---
Physician Documentation [facility] Name: Elba Wells Age: 24 yrs Sex: Female : 1995 Arrival Date: 05/28/2020 Time: 18:47 Bed 24 Private MD: ED Physician Dagoberto Cr HPI: 05/28 19:11 This 24 yrs old Female presents to ER via Ambulatory with complaints of R Side snw Pain. 19:11 Onset: The symptoms/episode began/occurred last night, pt has known gallstones, had snw enchiladas for dinner. Associated signs and symptoms: Pertinent positives: abdominal pain. Modifying factors: The patient symptoms are alleviated by nothing, the patient symptoms are aggravated by eating food. The patient has experienced a previous episode, approximately 1.5 months ago. It is unknown whether or not the patient has recently seen a physician. 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 - Social history:: Smoking status: Patient denies any tobacco usage or history of. ROS: 19:11 Constitutional: Negative for fever, chills, and weight loss, Eyes: Negative for injury, snw pain, redness, and discharge, ENT: Negative for injury, pain, and discharge, Neck: Negative for injury, pain, and swelling, Cardiovascular: Negative for chest pain, palpitations, and edema, Respiratory: Negative for shortness of breath, cough, wheezing, and pleuritic chest pain, Back: Negative for injury and pain, : Negative for injury, bleeding, discharge, and swelling, MS/Extremity: Negative for injury and deformity, Skin: Negative for injury, rash, and discoloration, Neuro: Negative for headache, weakness, numbness, tingling, and seizure, Psych: Negative for depression, anxiety, suicide ideation, homicidal ideation, and hallucinations. 19:11 Abdomen/GI: Positive for abdominal pain, nausea, of the right upper quadrant. Exam: 19:11 Constitutional: This is a well developed, well nourished patient who is awake, alert, snw and in no acute distress. Head/Face: Normocephalic, atraumatic. Eyes: Pupils equal round and reactive to light, extra-ocular motions intact. Lids and lashes normal. Conjunctiva and sclera are non-icteric and not injected. Cornea within normal limits. Periorbital areas with no swelling, redness, or edema. ENT: Nares patent. No nasal discharge, no septal abnormalities noted. Tympanic membranes are normal and external auditory canals are clear. Oropharynx with no redness, swelling, or masses, exudates, or evidence of obstruction, uvula midline. Mucous membranes moist. Neck: Trachea midline, no thyromegaly or masses palpated, and no cervical lymphadenopathy. Supple, full range of motion without nuchal rigidity, or vertebral point tenderness. No Meningismus. Chest/axilla: Normal chest wall appearance and motion. Nontender with no deformity. No lesions are appreciated. Cardiovascular: Regular rate and rhythm with a normal S1 and S2. No gallops, murmurs, or rubs. Normal PMI, no JVD. No pulse deficits. Respiratory: Lungs have equal breath sounds bilaterally, clear to auscultation and percussion. No rales, rhonchi or wheezes noted. No increased work of breathing, no retractions or nasal flaring. Back: No spinal tenderness. No costovertebral tenderness. Full range of motion. Skin: Warm, dry with normal turgor. Normal color with no rashes, no lesions, and no evidence of cellulitis. MS/ Extremity: Pulses equal, no cyanosis. Neurovascular intact. Full, normal range of motion. Neuro: Awake and alert, GCS 15, oriented to person, place, time, and situation. Cranial nerves II-XII grossly intact. Motor strength 5/5 in all extremities. Sensory grossly intact. Cerebellar exam normal. Normal gait. Psych: Awake, alert, with orientation to person, place and time. Behavior, mood, and affect are within normal limits. 19:11 Abdomen/GI: Inspection: abdomen appears normal, obese Bowel sounds: normal, Palpation: moderate abdominal tenderness, in the right upper quadrant, Indicators: Lynn's sign is positive. Vital Signs: 18:48 Weight 94.35 kg (R); Height 5 ft. 6 in. (167.64 cm) (R); Pain 8/10; aa5 19:00 BP 128 / 53; Pulse 60; Resp 18; Temp 97.7; Pulse Ox 99% on R/A; Pain 8/10; zb 20:00 BP 133 / 82; Pulse 77; Resp 18; Pulse Ox 99% on R/A; zb 18:48 Body Mass Index 33.57 (94.35 kg, 167.64 cm) aa5 MDM: 19:00 Patient medically screened. snw 20:28 Data reviewed: vital signs, nurses notes, lab test result(s), radiologic studies. Data snw interpreted: Pulse oximetry: on room air is 99 %. Interpretation: normal. Counseling: I had a detailed discussion with the patient and/or guardian regarding: the historical points, exam findings, and any diagnostic results supporting the discharge/admit diagnosis, lab results, radiology results, the need for outpatient follow up, to return to the emergency department if symptoms worsen or persist or if there are any questions or concerns that arise at home. Special discussion: Based on the patient's Hx, exam, and Dx evaluation, there is no indication for emergent surgery or inpatient Tx. It is understood by the patient/guardian that if the Sx's persist or worsen they need to return immediately for re-evaluation. Based on the history and exam findings, there is no indication for further emergent testing or inpatient evaluation. I discussed with the patient/guardian the need to see the general surgeon for further evaluation of the symptoms. I discussed with the patient/guardian the need to see the primary care provider for further evaluation of the symptoms. 05/28 19:00 Order name: Basic Metabolic Panel snw 05/28 19:00 Order name: CBC with Diff snw 05/28 19:00 Order name: Hepatic Function snw 05/28 19:00 Order name: Lipase snw 05/28 19:00 Order name: Urine Microscopic Only snw 05/28 19:00 Order name: Basic Metabolic Panel; Complete Time: 20:23 EDMS 05/28 19:00 Order name: CBC with Automated Diff; Complete Time: 20:23 EDMS 05/28 19:32 Order name: Urine Dipstick--Ancillary (enter results) tt3 05/28 19:38 Order name: Urine Dipstick-Ancillary; Complete Time: 19:40 EDMS 05/28 19:42 Order name: Urine --Ancillary (enter results) tt3 05/28 20:01 Order name: Urine --Ancillary; Complete Time: 20:23 EDMS 05/28 20:07 Order name: Liver (Hepatic) Function; Complete Time: 20:23 EDMS 05/28 20:07 Order name: Lipase; Complete Time: 20:23 EDMS 05/28 20:08 Order name: Urine Microscopic Only; Complete Time: 20:23 EDMS 05/28 19:00 Order name: US Abdomen Limited; Complete Time: 20:49 snw 05/28 19:00 Order name: IV Saline Lock; Complete Time: 19:22 snw 05/28 19:00 Order name: Labs collected and sent; Complete Time: 19:22 snw 05/28 19:00 Order name: Urine Dipstick-Ancillary (obtain specimen); Complete Time: 19:33 snw Administered Medications: 19:31 Drug: fentaNYL (PF) 50 mcg Route: IVP; Site: left wrist; zb 20:50 Follow up: Response: No adverse reaction; Pain is decreased zb 20:44 Drug: Rocephin 1 grams Route: IV; Rate: calculated rate; Site: left wrist; zb 20:50 Follow up: Response: No adverse reaction; No adverse reaction, medication given at zb discharge Disposition: 05/29 08:51 Co-signature as Attending Physician, Dagoberto Cr MD. ma2 Disposition: 05/28/20 20:27 Discharged to Home. Impression: Cholelithiasis, Colic, Urinary tract infection, site not specified. - Condition is Stable. - Discharge Instructions: Biliary Colic, Adult, Fat and Cholesterol Restricted Diet, Urinary Tract Infection, Adult, Cholelithiasis, Rehydration, Adult. - Prescriptions for Augmentin 875- 125 mg Oral Tablet - take 1 tablet by ORAL route every 12 hours for 10 days; 20 tablet. Diclofenac Sodium 75 mg Oral Tablet Sustained Release - take 1 tablet by ORAL route 2 times per day; 30 tablet. promethazine 25 mg Oral Tablet - take 1 tablet by ORAL route every 6 hours As needed; 20 tablet. - Work release form, Medication Reconciliation Form, Thank You Letter, Antibiotic Education, Prescription Opioid Use form. - Follow up: Gaston Harley MD; When: 2 - 3 days; Reason: Recheck today's complaints, Continuance of care, Re-evaluation by your physician. Signatures: Dispatcher [employer] ANN KumarDayanara, NEWSPAPER PHOTO EDITOR-C NEWSPAPER PHOTO EDITOR-Csnw Susanne Velasquez, RN RN aa5 Dagoberto Cr MD MD ma2 Carmita Scruggs RN RN zb Corrections: (The following items were deleted from the chart) 05/28 20:53 20:27 05/28/2020 20:27 Discharged to Home. Impression: Cholelithiasis; Colic; Urinary zb tract infection, site not specified. Condition is Stable. Forms are Medication Reconciliation Form, Thank You Letter, Antibiotic Education, Prescription Opioid Use. Follow up: Gaston Harley; When: 2 - 3 days; Reason: Recheck today's complaints, Continuance of care, Re-evaluation by your physician. snw
--- NOTE | 2020-05-28 20:27 | ER ---
Nurse's Notes [facility] Name: Elba Wells Age: 24 yrs Sex: Female : 1995 Arrival Date: 05/28/2020 Time: 18:47 Bed 24 Private MD: Diagnosis: Cholelithiasis;Colic;Urinary tract infection, site not specified Presentation: 05/28 18:48 Chief complaint: Patient states: RUQ pain radiating to right mid-back that began aa5 yesterday. Pt reports nausea, denies vomiting/diarrhea. 18:48 Coronavirus screen: Client denies travel out of the [place] in the last 14 days. At this aa5 time, the client does not indicate any symptoms associated with coronavirus-19. Pt states "I always have a cough". Ebola Screen: Patient negative for fever greater than or equal to 101.5 degrees Fahrenheit, and additional compatible Ebola Virus Disease symptoms. Initial Sepsis Screen: Does the patient meet any 2 criteria? No. Patient's initial sepsis screen is negative. Does the patient have a suspected source of infection? No. Patient's initial sepsis screen is negative. Risk Assessment: Do you want to hurt yourself or someone else? Patient reports no desire to harm self or others. Onset of symptoms was May 2020. 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 - Social history:: Smoking status: Patient denies any tobacco usage or history of. Screenin:07 Abuse screen: Denies threats or abuse. Denies injuries from another. Nutritional zb screening: No deficits noted. Tuberculosis screening: No symptoms or risk factors identified. Fall Risk None identified. Assessment: 19:00 General: Appears in no apparent distress. uncomfortable, Behavior is calm, cooperative, zb Denies fever, fatigue, chills. Pain: Complains of pain in right upper quadrant and right lower quadrant Pain radiates to right flank Pain currently is 8 out of 10 on a pain scale. Pain began 1 day ago. Is continuous, Aggravated by eating, Also complains of nausea. Neuro: Level of Consciousness is awake, alert, Oriented to person, place, time, situation. Cardiovascular: Heart tones S1 S2 present Capillary refill < 3 seconds in bilateral fingers Patient's skin is warm and dry. Respiratory: Airway is patent Respiratory effort is even, unlabored, Respiratory pattern is regular. GI: Abdomen is round non-distended, obese, Bowel sounds present X 4 quads. Abd is soft X 4 quads Abdomen is tender to palpation in right upper quadrant and right lower quadrant Reports upper abdominal pain, constipation, nausea. : No signs and/or symptoms were reported regarding the genitourinary system. Denies burning with urination, discharge, inability to void, incontinence, pain. EENT: No signs and/or symptoms were reported regarding the EENT system. Derm: Skin is intact, is healthy with good turgor, Skin is normal. Musculoskeletal: Circulation, motion, and sensation intact. Range of motion: intact in all extremities. 20:06 Reassessment: Patient appears in no apparent distress at this time. Patient and/or zb family updated on plan of care and expected duration. Pain level reassessed. Patient is alert, oriented x 3, equal unlabored respirations, skin warm/dry/pink. Vital Signs: 18:48 Weight 94.35 kg (R); Height 5 ft. 6 in. (167.64 cm) (R); Pain 8/10; aa5 19:00 BP 128 / 53; Pulse 60; Resp 18; Temp 97.7; Pulse Ox 99% on R/A; Pain 8/10; zb 20:00 BP 133 / 82; Pulse 77; Resp 18; Pulse Ox 99% on R/A; zb 18:48 Body Mass Index 33.57 (94.35 kg, 167.64 cm) aa5 ED Course: 18:47 Patient arrived in ED. ds1 18:48 Arm band placed on Patient placed in an exam room, on a stretcher. aa5 18:50 Carmita Scruggs, BALDOMERO is Primary Nurse. zb 18:54 Triage completed. aa5 18:59 Dayanara Kumar FNP-C is [facility]. snw 18:59 Dagoberto Cr MD is Attending Physician. snw 19:08 Patient has correct armband on for positive identification. Bed in low position. Call zb light in reach. Side rails up X 1. Adult w/ patient. Pulse ox on. NIBP on. Door closed. Noise minimized. Warm blanket given. 19:23 Inserted saline lock: 22 gauge in left wrist, using aseptic technique. Blood collected. jd3 20:04 US Abdomen Limited In Process Unspecified. EDMS 20:26 Gaston Harley MD is Referral Physician. snw 20:53 No provider procedures requiring assistance completed. IV discontinued, intact, zb bleeding controlled, No redness/swelling at site. Pressure dressing applied. Administered Medications: 19:31 Drug: fentaNYL (PF) 50 mcg Route: IVP; Site: left wrist; zb 20:50 Follow up: Response: No adverse reaction; Pain is decreased zb 20:44 Drug: Rocephin 1 grams Route: IV; Rate: calculated rate; Site: left wrist; zb 20:50 Follow up: Response: No adverse reaction; No adverse reaction, medication given at zb discharge Outcome: 20:27 Discharge ordered by . snw 20:53 Discharged to home ambulatory, with family. zb 20:53 Condition: stable 20:53 Discharge instructions given to patient, family, Instructed on discharge instructions, follow up and referral plans. medication usage, Demonstrated understanding of instructions, follow-up care, medications, Prescriptions given X 3. 20:53 Patient left the ED. zb Signatures: Dispatcher [employer] EDWV Dayanara Kumar FNP-C GLASS TECHNOLOGIST-Csnw Elisabet Franklin ds1 Susanne Velasquez RN RN aa5 Juvencio Upton RN RN Carmita Rizo RN RN zb
--- NOTE | 2020-05-28 20:42 | RAD REPORT ---
EXAM DESCRIPTION: US - Abdomen Exam Limited - 05/28/2020 8:04 pm CLINICAL HISTORY: ABD PAIN COMPARISON: Abdomen Pelvis Wo Contrast dated 06/27/2017Abdomen Pelvis Wo Contrast dated 06/27/2017 FINDINGS: A 10 millimeter size gallstone is seen within the lumen of the gallbladder. No other stone or sludge confirmed. There is no wall thickening or pericholecystic fluid. No common duct stone or biliary tree dilatation identified. IMPRESSION: Solitary mobile gallstone is seen with no other gallbladder or biliary tree finding.
[2020-05-28] MEDS ORDERED: CEFTRIAXONE/SWI 1gm 1 GM/10 ML SYR ONE (20:55)
== END 2020-05-28 20:53 | disposition home or self-care (01) ==
LOC: ER 18:44
DX: K80.20 Calculus of gallbladder without cholecystitis without obstruction (principal); N39.0 Urinary tract infection, site not specified; R10.84 Generalized abdominal pain; Z91.041 Radiographic dye allergy status; Z91.048 Other nonmedicinal substance allergy status
CPT/HCPCS: 36415; 76705; 80048; 80076; 81003; 81015; 81025; 83690; 85025; 87086; 87088; 96374; 96375; 99284; J0696; J3010

== ENCOUNTER 2020-06-19 00:54 | Emergency (ER) | payer SELFPAY ==
--- OUTSIDE RECORDS SUMMARY | 2020-06-19 00:58 | XMS REPORT | Continuity of Care Document ---
:[address] [facility] t Address [address] [place] [address] [address] [place] [address] Care Team Providers Name Role Phone Sam [...] 2020-03-27 2020-03-28 Emergency Sam Chase [id number] 19:22:00 00:39:00 Salina Aiken [id number] [place] [id number] [place] [phone] [id number] 2019-12-05 2019-12-05 Emergency MISHEL Hawkins [id number] 01:22:11 03:48:00 Ben Love Nelli [id number] [place] [id number] [place] [id number] 2019-11-15 2019-11-16 Emergency Sam Chase [facility] [id number] 19:21:57 00:00:00 Salina Nelli [id number] [place] [id number] [place] [id number] 2019-10-19 2019-10-19 Emergency Anil, [facility] [id number] 04:35:17 06:17:00 Mookie Aiken [id number] [place] [id number] [place] [id number] 2019-08-31 2019-08-31 [facility] [id number] 03:53:07 05:03:00 James Aiken [id number] [place] [id number] [place] [id number] 2019-01-29 2019-01-29 [facility] [id number] 15:09:14 18:22:00 Aníbal Aiken [id number] [place] [id number] [place] [id number] 2019-01-29 2019-01-29 Orders Doctor BRONWYN [id number] 00:00:00 00:00:00 Only Unassigned, FAUSTO [id number] [place] [facility] [id number] Results This patient has no known results.
--- NOTE | 2020-06-19 01:16 | ER ---
Nurse's Notes [facility] Name: Elba Wells Age: 24 yrs Sex: Female : 1995 Arrival Date: 06/19/2020 Time: 00:55 Bed 3 Private MD: Diagnosis: Conjunctivitis;Contact with and (suspected) exposure to other viral communicable diseases-covid 19 Presentation: 06/19 01:10 Chief complaint: Patient states: i have cough, fever this morning, sore throat, body mg2 ache and right eye swelling and redness today. Coronavirus screen: Client denies travel out of the [place] in the last 14 days. Client presents with at least one sign or symptom that may indicate coronavirus-19. Standard/surgical mask placed on the client. Provider contacted for isolation considerations. Ebola Screen: No symptoms or risks identified at this time. Initial Sepsis Screen: Does the patient meet any 2 criteria? No. Patient's initial sepsis screen is negative. Does the patient have a suspected source of infection? No. Patient's initial sepsis screen is negative. Risk Assessment: Do you want to hurt yourself or someone else? Patient reports no desire to harm self or others. Onset of symptoms was June 14, 2020. 01:10 Method Of Arrival: Ambulatory mg2 01:10 Acuity: CED 4 mg2 Triage Assessment: 01:14 General: Appears in no apparent distress. comfortable, Behavior is calm, cooperative. mg2 Pain: Complains of pain in BODY AND THROAT. EENT: Reports SORE THROAT. EENT: Eyes are tearing on right eye. Neuro: Level of Consciousness is awake, alert, obeys commands, Oriented to person, place, time, situation. Cardiovascular: Capillary refill < 3 seconds Patient's skin is warm and dry. Respiratory: Reports cough that is Airway is patent Respiratory effort is even, unlabored, Respiratory pattern is regular, symmetrical. GI: No signs and/or symptoms were reported involving the gastrointestinal system. : No signs and/or symptoms were reported regarding the genitourinary system. Derm: Skin is intact, is healthy with good turgor, Skin is pink, warm \T\ dry. normal. Musculoskeletal: Circulation, motion, and sensation intact. Capillary refill < 3 seconds. 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 - Social history:: Smoking status: Patient denies any tobacco usage or history of. Patient uses alcohol, occasionally. Patient/guardian denies using street drugs, IV drugs. - Family history:: not pertinent. Screenin:15 Abuse screen: Denies threats or abuse. Denies injuries from another. Nutritional mg2 screening: No deficits noted. Tuberculosis screening: No symptoms or risk factors identified. Fall Risk None identified. Assessment: 01:15 General: see triage note. mg2 01:29 Reassessment: patient for dc after strep and flu result is back. mg2 Vital Signs: 01:10 BP 109 / 98; Pulse 97; Resp 18; Temp 98.2; Pulse Ox 99% on R/A; Weight 94.35 kg; Height mg2 5 ft. 6 in. (167.64 cm); 01:55 BP 116 / 87; Pulse 81; Resp 18; Pulse Ox 100% on R/A; mg2 01:55 Temp 98; rr5 01:10 Body Mass Index 33.57 (94.35 kg, 167.64 cm) mg2 ED Course: 00:55 Patient arrived in ED. cl3 01:06 Ariel Solomon MD is Attending Physician. sada 01:10 Abhi Bunch RN is Primary Nurse. mg2 01:12 Triage completed. mg2 01:14 Alex Thakur MD is Referral Physician. sada 01:14 Arm band placed on. mg2 01:14 COVID swab sent to lab. Flu and/or RSV swab sent to lab. Strep swab sent to lab. ar5 01:16 Patient has correct armband on for positive identification. mg2 01:16 No provider procedures requiring assistance completed. Patient did not have IV access mg2 during this emergency room visit. Administered Medications: 01:11 CANCELLED (Duplicate Order): Bacitracin Ointment 1 strip Ophthalmic once; affected [facility] eye(s) 01:23 Drug: Pepcid 40 mg Route: PO; rr5 01:55 Follow up: Response: No adverse reaction mg2 01:24 Drug: Zithromax 500 mg Route: PO; rr5 01:56 Follow up: Response: No adverse reaction mg2 01:24 Drug: Tylenol 1000 mg Route: PO; rr5 01:56 Follow up: Response: No adverse reaction mg2 01:28 Drug: Decadron 10 mg Route: IM; Site: right ventrogluteal; mg2 01:56 Follow up: Response: No adverse reaction mg2 01:29 Drug: Rocephin (cefTRIAXone) 1 grams Route: IM; Site: left ventrogluteal; mg2 01:56 Follow up: Response: No adverse reaction mg2 01:39 Drug: ERYTHromycin Ointment 1 application Route: Ophthalmic; Site: right eye; rr5 01:55 Follow up: Response: No adverse reaction mg2 Outcome: 01:16 Discharge ordered by . sada 01:57 Discharged to home ambulatory. mg2 01:57 Condition: stable 01:57 Discharge instructions given to patient, Instructed on discharge instructions, follow up and referral plans. medication usage, Demonstrated understanding of instructions, follow-up care, medications, Prescriptions given X 4. 01:59 Patient left the ED. mg2 Addendum: 06/24/2020 09:11 Addendum: COVID-19 Result: Negative result given to RN to notify pt. Notified pt of d m5 negative COVID 19 swab results. Pt advised that even with a negative test result they should remain in isolation until symptom free for 3 days without medication. Pt also advised to return to the ED for worsening symptoms. Signatures: Aruna Richardson RN RN dm5 Ariel Solomon MD MD cha Gardose, Michele, RN RN mg2 Driss Fuchs RN RN rr5 Carmen Sutton Charde cl3
--- NOTE | 2020-06-19 01:16 | EDPHYS ---
Physician Documentation [facility] Name: Elba Wells Age: 24 yrs Sex: Female : 1995 Arrival Date: 06/19/2020 Time: 00:55 Bed 3 Private MD: ED Physician Ariel Sloomon HPI: 06/19 01:11 This 24 yrs old Female presents to ER via Unassigned with complaints of sada Bodyache, Eye Swelling. 01:11 The patient is experiencing burning, pain, redness. 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 - Social history:: Smoking status: Patient denies any tobacco usage or history of. Patient uses alcohol, occasionally. Patient/guardian denies using street drugs, IV drugs. - Family history:: not pertinent. ROS: 01:12 Constitutional: Negative for fever, chills, and weight loss, ENT: Negative for injury, sada pain, and discharge, Neck: Negative for injury, pain, and swelling, Cardiovascular: Negative for chest pain, palpitations, and edema, Abdomen/GI: Negative for abdominal pain, nausea, vomiting, diarrhea, and constipation, Back: Negative for injury and pain, : Negative for injury, bleeding, discharge, and swelling, MS/Extremity: Negative for injury and deformity, Skin: Negative for injury, rash, and discoloration, Neuro: Negative for headache, weakness, numbness, tingling, and seizure, Psych: Negative for depression, anxiety, suicide ideation, homicidal ideation, and hallucinations, Allergy/Immunology: Negative for hives, rash, and allergies, Endocrine: Negative for neck swelling, polydipsia, polyuria, polyphagia, and marked weight changes, Hematologic/Lymphatic: Negative for swollen nodes, abnormal bleeding, and unusual bruising. 01:12 Eyes: Positive for matting, pain, photophobia, redness, of the outer aspect of conjuctiva of right eye and inner aspect of conjuctiva of right eye. 01:12 Respiratory: Positive for cough, with no reported sputum. Exam: 01:12 Constitutional: This is a well developed, well nourished patient who is awake, alert, sada and in no acute distress. Head/Face: Normocephalic, atraumatic. ENT: Nares patent. No nasal discharge, no septal abnormalities noted. Tympanic membranes are normal and external auditory canals are clear. Oropharynx with no redness, swelling, or masses, exudates, or evidence of obstruction, uvula midline. Mucous membranes moist. Neck: Trachea midline, no thyromegaly or masses palpated, and no cervical lymphadenopathy. Supple, full range of motion without nuchal rigidity, or vertebral point tenderness. No Meningismus. Chest/axilla: Normal chest wall appearance and motion. Nontender with no deformity. No lesions are appreciated. Cardiovascular: Regular rate and rhythm with a normal S1 and S2. No gallops, murmurs, or rubs. Normal PMI, no JVD. No pulse deficits. Respiratory: Lungs have equal breath sounds bilaterally, clear to auscultation and percussion. No rales, rhonchi or wheezes noted. No increased work of breathing, no retractions or nasal flaring. Abdomen/GI: Soft, non-tender, with normal bowel sounds. No distension or tympany. No guarding or rebound. No evidence of tenderness throughout. Back: No spinal tenderness. No costovertebral tenderness. Full range of motion. Skin: Warm, dry with normal turgor. Normal color with no rashes, no lesions, and no evidence of cellulitis. MS/ Extremity: Pulses equal, no cyanosis. Neurovascular intact. Full, normal range of motion. Neuro: Awake and alert, GCS 15, oriented to person, place, time, and situation. Cranial nerves II-XII grossly intact. Motor strength 5/5 in all extremities. Sensory grossly intact. Cerebellar exam normal. Normal gait. Psych: Awake, alert, with orientation to person, place and time. Behavior, mood, and affect are within normal limits. 01:12 Eyes: Extraocular movements: intact throughout, Conjunctiva: injected, Corneas: no acute changes, Sclera: INJECTED, Lids and lashes: appear normal, no acute changes, funduscopic exam reveals no obvious abnormalities, no acute changes, Nystagmus: is not appreciated, no acute changes. Vital Signs: 01:10 BP 109 / 98; Pulse 97; Resp 18; Temp 98.2; Pulse Ox 99% on R/A; Weight 94.35 kg; Height mg2 5 ft. 6 in. (167.64 cm); 01:55 BP 116 / 87; Pulse 81; Resp 18; Pulse Ox 100% on R/A; mg2 01:55 Temp 98; rr5 01:10 Body Mass Index 33.57 (94.35 kg, 167.64 cm) mg2 MDM: 01:06 Patient medically screened. [facility] 06/19 01:10 Order name: Flu; Complete Time: 01:51 [facility] 06/19 01:10 Order name: Strep; Complete Time: 01:51 [facility] 06/19 01:10 Order name: COVID-19 [facility] 06/19 01:46 Order name: Throat Culture EDMS Administered Medications: 01:11 CANCELLED (Duplicate Order): Bacitracin Ointment 1 strip Ophthalmic once; affected [facility] eye(s) 01:23 Drug: Pepcid 40 mg Route: PO; rr5 01:55 Follow up: Response: No adverse reaction mg2 01:24 Drug: Zithromax 500 mg Route: PO; rr5 01:56 Follow up: Response: No adverse reaction mg2 01:24 Drug: Tylenol 1000 mg Route: PO; rr5 01:56 Follow up: Response: No adverse reaction mg2 01:28 Drug: Decadron 10 mg Route: IM; Site: right ventrogluteal; mg2 01:56 Follow up: Response: No adverse reaction mg2 01:29 Drug: Rocephin (cefTRIAXone) 1 grams Route: IM; Site: left ventrogluteal; mg2 01:56 Follow up: Response: No adverse reaction mg2 01:39 Drug: ERYTHromycin Ointment 1 application Route: Ophthalmic; Site: right eye; rr5 01:55 Follow up: Response: No adverse reaction mg2 Disposition: 06/19/20 01:16 Discharged to Home. Impression: Conjunctivitis, Contact with and (suspected) exposure to other viral communicable diseases - covid 19. - Condition is Stable. - Discharge Instructions: Bacterial Conjunctivitis, Viral Respiratory Infection, Bacterial Conjunctivitis, Oifs-yc-Ydvd, Viral Respiratory Infection, Wojr-Qy-Igca, Aspirin and Your Heart, COVID-19. - Prescriptions for dexamethasone 2 mg Oral tablet - take 1 tablet by ORAL route 3 times per day; 15 tablet. Pepcid 20 mg Oral Tablet - take 1 tablet by ORAL route every 12 hours for 10 days; 20 tablet. Erythromycin 5 mg/gram (0.5 %) Ophthalmic Ointment - apply 1 ribbon by OPHTHALMIC route every 8 hours; 1 tube. Zithromax 500 mg Oral Tablet - take 1 tablet by ORAL route once daily for 4 days; 4 tablet. - Medication Reconciliation Form, Thank You Letter, Antibiotic Education, Prescription Opioid Use form. - Work release form (06/19/20 02:00). rr5 - Follow up: Private Physician; When: 2 - 3 days; Reason: Recheck today's complaints, Continuance of care, Re-evaluation by your physician. Follow up: Alex Thakur MD; When: 2 - 3 days; Reason: Recheck today's complaints, Continuance of care, Re-evaluation by your physician. - Problem is new. - Symptoms have improved. Signatures: Dispatcher [employer] EDAriel White MD MD cha Gardose, Michele, RN RN mg2 Driss Fuchs RN RN rr5 Corrections: (The following items were deleted from the chart) 01:11 01:10 Bacitracin Ointment 1 strip Ophthalmic once; affected eye(s) ordered. sada [place] 01:59 01:16 06/19/2020 01:16 Discharged to Home. Impression: Conjunctivitis; Contact with and mg2 (suspected) exposure to other viral communicable diseases - covid 19. Condition is Stable. Forms are Medication Reconciliation Form, Thank You Letter, Antibiotic Education, Prescription Opioid Use. Follow up: Private Physician; When: 2 - 3 days; Reason: Recheck today's complaints, Continuance of care, Re-evaluation by your physician. Follow up: Alex Thakur; When: 2 - 3 days; Reason: Recheck today's complaints, Continuance of care, Re-evaluation by your physician. Problem is new. Symptoms have improved. sada
[2020-06-19] MEDS ORDERED: AZITHROMYCIN 250 MG TAB ONE (01:31)
[2020-06-19] MEDS ORDERED: LIDOCAINE 1% MPF 2 ML AMPULE ONE (01:31)
[2020-06-19] MEDS ORDERED: dexAMETHasone 10 MG/ML VIAL ONE (01:32)
[2020-06-19] MEDS ORDERED: ACETAMINOPHEN 500 MG TAB ONE (01:32)
[2020-06-19] MEDS ORDERED: CEFTRIAXONE 1000 MG/VIAL ONE (01:32)
[2020-06-19] MEDS ORDERED: FAMOTIDINE 20 MG TAB ONE (01:32)
[2020-06-19] MEDS ORDERED: ERYTHROMYCIN 1 APPL/1 GM TUBE ONE (01:49)
[2020-06-19 02:04] VITALS: TEMP 98.2
[2020-06-19 02:05] VITALS: BP 116/87; O2SAT 100
== END 2020-06-19 01:59 | disposition home or self-care (01) ==
LOC: ER 00:54
DX: H10.9 Unspecified conjunctivitis (principal); Z20.828 Contact with and (suspected) exposure to other viral communicable diseases; J45.909 Unspecified asthma, uncomplicated; Z91.041 Radiographic dye allergy status; Z91.048 Other nonmedicinal substance allergy status
CPT/HCPCS: 87070; 87081; 87804; 96372; 99283; J1100; J2001; U0002

== ENCOUNTER 2020-08-11 11:33 | Emergency (ER) | payer SELFPAY ==
--- OUTSIDE RECORDS SUMMARY | 2020-08-11 11:36 | XMS REPORT | Continuity of Care Document ---
:1995 Author Organization [facility] t Address [address] [place] [address] Care Team Providers Name Role Phone Wilbert Downey Attending Clinician Problems This patient has no known problems. Allergies, Adverse Reactions, Alerts This patient has no known allergies or adverse reactions. Medications This patient has no known medications. Procedures This patient has no known procedures. Encounters Start End Encounter Admission Attending Care Care Encounter Source Date/Time Date/Time Type Type Clinicians Facility Department ID 2020-06-27 2020-06-27 Office MISHEL Borja [id number] 25 15:21:42 16:19:38 Visit Wilbert Jaffe NEWSPAPER COPY EDITOR [id number] [facility] [id number] MATERNAL [id number] & CHILD [address] [place] [address] Results This patient has no known results.
--- NOTE | 2020-08-11 14:52 | RAD REPORT ---
EXAM DESCRIPTION: RAD - Hand Right 3 View - 08/11/2020 2:14 pm CLINICAL HISTORY: PAIN COMPARISON: No comparisons FINDINGS: No fracture is identified. There is no dislocation or periosteal reaction noted. Scaphoid bone is not optimally positioned. Fracture is doubtful ; however, repeat imaging focused on the scap hoid bone could be performed if there is persistent localized tenderness. No joint abnormality seen. No foreign body or significant soft tissue abnormality. IMPRESSION: As detailed above, no fracture or acute finding identifiable.
--- NOTE | 2020-08-11 14:53 | RAD REPORT ---
EXAM DESCRIPTION: RAD - Chest Single View - 08/11/2020 2:14 pm CLINICAL HISTORY: BLUNT CHEST TRAUMA, right-sided chest pain COMPARISON: Portable April 2020 TECHNIQUE: AP portable chest image was obtained 08/11/2020 2:14 pm . FINDINGS: No pulmonary contusion or acute lung parenchymal process. Heart and vasculature are normal . No measurable pleural effusion and no pneumothorax. No acute bony abnormality seen. No acute aortic findings suspected. IMPRESSION: No acute cardiopulmonary process.
--- NOTE | 2020-08-11 15:05 | RAD REPORT ---
EXAM DESCRIPTION: Ribs Right - 08/11/2020 2:14 pm CLINICAL HISTORY: PAIN COMPARISON: Chest Single View dated 05/08/2020 FINDINGS: No displaced rib fracture is evident. No non-displaced rib fracture suspected. No aggressive rib lesion. No underlying pneumothorax, effusion, infiltrate or pulmonary contusion. IMPRESSION: Negative right rib series.
--- NOTE | 2020-08-11 15:06 | RAD REPORT ---
EXAM DESCRIPTION: RAD - Wrist Right 3 View - 08/11/2020 2:14 pm CLINICAL HISTORY: PAIN, wrist trauma COMPARISON: No comparisons FINDINGS: No fracture is identified. There is no dislocation or periosteal reaction noted. Epiphyses and growth plates are normal in appearance. No foreign body or other soft tissue abnormality. IMPRESSION: Negative right wrist examination.
[2020-08-11] MEDS ORDERED: HYDROCODONE/APAP 5/325 MG TAB ONE (15:07)
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
[2020-08-11 15:57] VITALS: TEMP 97.4
[2020-08-11 16:02] VITALS: BP 94/63; O2SAT 98
== END 2020-08-11 15:47 | disposition home or self-care (01) ==
LOC: ER 11:33
DX: S60.211A Contusion of right wrist, initial encounter (principal); S20.20XA Contusion of thorax, unspecified, initial encounter; Y35.819A Legal intervention involving manhandling, unspecified person injured, initial encounter; Y93.9 Activity, unspecified; Y92.9 Unspecified place or not applicable; Z91.041 Radiographic dye allergy status; Z91.048 Other nonmedicinal substance allergy status
CPT/HCPCS: 71045; 99284

== ENCOUNTER 2020-09-15 22:52 | Emergency (ER) | payer SELFPAY ==
--- OUTSIDE RECORDS SUMMARY | 2020-09-15 22:55 | XMS REPORT | Continuity of Care Document ---
:1995 Author Organization [facility] t Address [address] [place] [address] Care Team Providers Name Role Phone Juan Marshall DO Attending Clinician Alannah Downey Attending Clinician Problems This patient has no known problems. Allergies, Adverse Reactions, Alerts This patient has no known allergies or adverse reactions. Medications This patient has no known medications. Procedures This patient has no known procedures. Encounters Start End Encounter Admission Attending Care Care Encounter Source Date/Time Date/Time Type Type Clinicians Facility Department ID 2020-09-10 2020-09-10 Patient MISHEL Marshall [id number] 00:00:00 00:00:00 Outreach Juan MOODY [id number] Faustino [facility] [id number] PAVILLION [id number] 2020-06-27 2020-06-27 Office MISHEL Borja [id number] 25 15:21:42 16:19:38 Visit Wilbert Jaffe PROJECT MANAGER INTERIOR DESIGN [id number] [facility] [id number] MATERNAL [id number] & [address] Results This patient has no known results.
[2020-09-16 00:06] LABS: SARS-COV-2 RT PCR NEGATIVE (NEGATIVE)
--- NOTE | 2020-09-16 00:29 | EDPHYS ---
Physician Documentation [facility] Name: Elba Wells Age: 25 yrs Sex: Female : 1995 Arrival Date: 09/15/2020 Time: 22:55 Bed 19 Private MD: ED Physician Ismael Tee HPI: 09/16 00:35 This 25 yrs old Female presents to ER via Ambulatory with complaints of Cough, kb Chest Pain, Breathing Difficulty. 00:35 The patient or guardian reports cough, that is intermittent, described as mild, with no kb sputum, difficulty breathing. Onset: The symptoms/episode began/occurred 4 day(s) ago. Severity of symptoms: At their worst the symptoms were moderate, in the emergency department the symptoms are unchanged. Modifying factors: The symptoms are alleviated by nothing, the symptoms are aggravated by nothing. Associated signs and symptoms: Pertinent positives: rhinorrhea. The patient has not experienced similar symptoms in the past. The patient has not recently seen a physician. Pt reports runny nose started , then cough and shortness of breath. States it feels like similar asthma attacks she has had in the past. 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 - Social history:: Smoking status: Patient denies any tobacco usage or history of. Patient uses alcohol, occasionally. Patient/guardian denies using street drugs. ROS: 09/16 00:35 Constitutional: Negative for fever, chills, and weight loss, Cardiovascular: Negative kb for chest pain, palpitations, and edema, Abdomen/GI: Negative for abdominal pain, nausea, vomiting, diarrhea, and constipation, MS/Extremity: Negative for injury and deformity, Skin: Negative for injury, rash, and discoloration, Neuro: Negative for headache, weakness, numbness, tingling, and seizure. ENT: Positive for rhinorrhea, sinus congestion. Respiratory: Positive for cough, shortness of breath. Exam: 00:35 Constitutional: This is a well developed, well nourished patient who is awake, alert, kb and in no acute distress. Head/Face: Normocephalic, atraumatic. Cardiovascular: Regular rate and rhythm with a normal S1 and S2. No gallops, murmurs, or rubs. No pulse deficits. Respiratory: Respirations even and unlabored. No increased work of breathing, no retractions or nasal flaring. Skin: Warm, dry with normal turgor. Normal color. MS/ Extremity: Pulses equal, no cyanosis. Neurovascular intact. Full, normal range of motion. Neuro: Awake and alert, GCS 15, oriented to person, place, time, and situation. Moves all extremities. Normal gait. 00:36 Respiratory: Breath sounds: are clear throughout. Vital Signs: 09/15 23:06 Weight 99.79 kg (R); Height 5 ft. 6 in. (167.64 cm) (R); Pain 9/10; bb 23:07 BP 125 / 100; Pulse 109; Resp 18; Pulse Ox 100% on R/A; rv 09/16 00:09 BP 106 / 74; Pulse 84; Resp 16; Pulse Ox 100% on R/A; rv 09/15 23:06 Body Mass Index 35.51 (99.79 kg, 167.64 cm) bb MDM: 09/15 22:56 Patient medically screened. 09/16 00:34 Data reviewed: vital signs, nurses notes. Data interpreted: Pulse oximetry: on room air kb is 100 %. Interpretation: normal. Counseling: I had a detailed discussion with the patient and/or guardian regarding: the historical points, exam findings, and any diagnostic results supporting the discharge/admit diagnosis, lab results, radiology results, the need for outpatient follow up, a family practitioner, to return to the emergency department if symptoms worsen or persist or if there are any questions or concerns that arise at home. 09/15 23:13 Order name: COVID-19 : Document "Date of Symptom Onset" if Symptomatic. rv 09/15 23:13 Order name: Flu rv 09/15 23:13 Order name: Chest Single View XRAY kb 09/16 00:07 Order name: COVID-19/FLU A+B; Complete Time: 00:22 EDMS Administered Medications: 00:35 Drug: predniSONE 40 mg Route: PO; rv 00:42 Follow up: Response: Medication administered at discharge. rv Disposition: 06:21 Co-signature as Attending Physician, Ismael Tee MD. mh7 Disposition: 09/16/20 00:28 Discharged to Home. Impression: Asthma, Allergic rhinitis, unspecified. - Condition is Stable. - Discharge Instructions: Asthma, Adult, Oajc-up-Xcnd, Allergies, Ejqt-zb-Dvup. - Prescriptions for Prednisone 20 mg Oral Tablet - take 1 tablet by ORAL route once daily for 5 days; 5 tablet. Albuterol Sulfate 90 mcg/actuation - inhale 1-2 puff by INHALATION route every 4-6 hours; 1 Inhaler. - Medication Reconciliation Form, Thank You Letter, Antibiotic Education, Prescription Opioid Use form. - Follow up: Private Physician; When: 2 - 3 days; Reason: Recheck today's complaints, Continuance of care, Re-evaluation by your physician. Follow up: Emergency Department; When: As needed; Reason: Worsening of condition. Signatures: Dispatcher [employer] EDMD Carolina Butler, COGENERATION OPERATOR-C COGENERATION OPERATOR-Tawana Sauceda RN RN Yoel Garcia RN RN Ismael Powell MD MD 7 Corrections: (The following items were deleted from the chart) 09/15 23:14 23:14 CORONAVIRUS+MR.LAB.BRZ ordered. [facility] 23:14 23:14 Influenza Screen (A \\T\\ B)+BA.LAB.BRZ ordered. [facility] EDMD 23:23 23:14 Influenza Screen (A ordered. EDMD EDMD 23:24 23:14 CORONAVIRUS ordered. [facility] EDMD 09/16 00:35 00:35 Respiratory: Positive for cough, kb kb 00:43 00:28 09/16/2020 00:28 Discharged to Home. Impression: Asthma; Allergic rhinitis, rv unspecified. Condition is Stable. Forms are Medication Reconciliation Form, Thank You Letter, Antibiotic Education, Prescription Opioid Use. Follow up: Private Physician; When: 2 - 3 days; Reason: Recheck today's complaints, Continuance of care, Re-evaluation by your physician. Follow up: Emergency Department; When: As needed; Reason: Worsening of condition. kb
--- NOTE | 2020-09-16 00:29 | ER ---
Nurse's Notes [facility] Name: Elba Wells Age: 25 yrs Sex: Female : 1995 Arrival Date: 09/15/2020 Time: 22:55 Bed 19 Private MD: Diagnosis: Asthma;Allergic rhinitis, unspecified Presentation: 09/15 23:06 Chief complaint: Patient states: she started feeling sick on Wednesday with a slight bb cough but it has gotten worse to the point that she is coughing until she vomits and is having chest pain. Pt has hx of asthma and uses an inhaler but it is not helping. Coronavirus screen: cough unrelated to allergies, difficulty breathing, vomiting. Client presents with at least one sign or symptom that may indicate coronavirus-19. Standard/surgical mask placed on the client. Ebola Screen: No symptoms or risks identified at this time. Risk Assessment: Do you want to hurt yourself or someone else? Patient reports no desire to harm self or others. Onset of symptoms was September 10, 2020. 23:06 Method Of Arrival: Ambulatory 23:06 Acuity: CED 3 bb 23:12 Initial Sepsis Screen: Does the patient meet any 2 criteria? No. Patient's initial bb sepsis screen is negative. Does the patient have a suspected source of infection? Yes: Productive cough/pneumonia. Triage Assessment: 09/16 00:10 General: Behavior is calm, cooperative. 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 - Social history:: Smoking status: Patient denies any tobacco usage or history of. Patient uses alcohol, occasionally. Patient/guardian denies using street drugs. Screenin/29 00:09 Abuse screen: Denies threats or abuse. Denies injuries from another. Nutritional rv screening: No deficits noted. Tuberculosis screening: No symptoms or risk factors identified. Fall Risk None identified. Assessment: 09/15 23:00 General: Appears. rv 23:00 Pain: Complains of pain in chest Pain does not radiate. Pain began suddenly. Neuro: rv Level of Consciousness is awake, alert, obeys commands, Oriented to person, place, time, situation. Cardiovascular: Patient's skin is warm and dry. Respiratory: Airway is patent Breath sounds are clear bilaterally. Vital Signs: 23:06 Weight 99.79 kg (R); Height 5 ft. 6 in. (167.64 cm) (R); Pain 9/10; bb 23:07 BP 125 / 100; Pulse 109; Resp 18; Pulse Ox 100% on R/A; rv 09/16 00:09 BP 106 / 74; Pulse 84; Resp 16; Pulse Ox 100% on R/A; rv 09/15 23:06 Body Mass Index 35.51 (99.79 kg, 167.64 cm) bb ED Course: 09/15 22:55 Patient arrived in ED. cf2 22:55 Carolina Butler FNP-C [facility] kb 22:56 Ismael Tee MD is Attending Physician. kb 23:07 Yoel Elder, BALDOMERO is Primary Nurse. rv 23:09 Triage completed. bb 23:11 Arm band placed on Patient placed in an exam room, on a stretcher, on pulse oximetry. bb 23:20 COVID swab sent to lab. Flu and/or RSV swab sent to lab. jp3 23:28 Chest Single View XRAY In Process Unspecified. EDMS 09/16 00:09 Patient has correct armband on for positive identification. Pulse ox on. NIBP on. rv 00:09 No provider procedures requiring assistance completed. Patient did not have IV access rv during this emergency room visit. Patient maintains SpO2 saturation greater than 95% on room air. Administered Medications: 00:35 Drug: predniSONE 40 mg Route: PO; rv 00:42 Follow up: Response: Medication administered at discharge. rv Outcome: : Discharge ordered by . kb 00:42 Discharged to home ambulatory. rv 00:42 Condition: good 00:42 Discharge instructions given to 00:42 Discharge instructions given to patient, Instructed on discharge instructions, follow up and referral plans. medication usage, Demonstrated understanding of instructions, follow-up care, medications, Prescriptions given X 3. 00:43 Patient left the ED. rv Signatures: Dispatcher [employer] EDHI Carolina Butler, SRINI PRABHAKARP-Tawana Sauceda, RN RN bb Yoel Elder RN RN rv Tono Brownlee jp3 Mi Prieto cf2 Corrections: (The following items were deleted from the chart) :43 00:43 Reassessment: TONY WRAP APPLIED ON LEFT FOOT rv rv : 00:42 Discharged to home via wheelchair, rv rv : 00:42 Discharge instructions given to patient, Instructed on discharge instructions, rv follow up and referral plans. medication usage, Demonstrated understanding of instructions, follow-up care, medications, Prescriptions given X 1, rv
[2020-09-16] MEDS ORDERED: predniSONE 20 MG TAB ONE (00:49)
[2020-09-16 01:05] VITALS: O2SAT 100
[2020-09-16 01:06] VITALS: BP 106/74
--- NOTE | 2020-09-16 08:20 | RAD REPORT ---
EXAM DESCRIPTION: RAD - Chest Single View - 09/15/2020 11:28 pm CLINICAL HISTORY: DYSPNEA COMPARISON: July 2020, April 2020 TECHNIQUE: AP portable chest image was obtained 09/15/2020 11:28 pm . FINDINGS: Lungs are clear. Interstitial pattern matches comparison. Heart and vasculature are normal . No measurable pleural effusion and no pneumothorax. No acute bony abnormality seen. No acute aortic findings suspected. IMPRESSION: No acute cardiopulmonary process. No significant change from comparison study.
== END 2020-09-16 00:43 | disposition home or self-care (01) ==
LOC: ER 22:52
DX: J45.909 Unspecified asthma, uncomplicated (principal); Z20.822 Contact with and (suspected) exposure to COVID-19; Z91.041 Radiographic dye allergy status; Z91.048 Other nonmedicinal substance allergy status
CPT/HCPCS: 0240U; 71045; 99284; J7512

== ENCOUNTER 2021-02-10 02:04 | Emergency (ER) | payer SELFPAY ==
--- OUTSIDE RECORDS SUMMARY | 2021-02-10 02:07 | XMS REPORT | Continuity of Care Document ---
:1995 [address] [facility] t Address [address] [place] [address] [address] [place] [address] Care Team Providers Name Role Phone Juan [...] ID 2020-09-10 2020-09-10 Patient MISHEL Marshall [id number] 00:00:00 00:00:00 Outreach Juan MOODY [id number] [facility] [id number] PAVILLION [id number] 2020-06-27 2020-06-27 Office MISHEL Borja [id number] 15:21:42 16:19:38 Visit Wilbert Jaffe [employer] [id number] [facility] [id number] MATERNAL [id number] & [address] Results This patient has no known results.
[2021-02-10] MEDS ORDERED: IBUPROFEN 400 MG TAB ONE (04:17)
[2021-02-10] MEDS ORDERED: IBUPROFEN 200 MG TAB PO ONE (04:17)
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
[2021-02-10 05:42] VITALS: BP 123/81; TEMP 97.8; O2SAT 99
--- NOTE | 2021-02-10 07:21 | RAD REPORT ---
EXAM DESCRIPTION: RAD - Foot Right 3 View - 02/10/2021 5:16 am CLINICAL HISTORY: PAIN COMPARISON: FOOT W OBLIQUES dated 11/25/2009 FINDINGS: No right foot fracture or malalignment is identified. No focal degenerative changes. IMPRESSION: No acute osseus abnormality involving the right foot.
--- NOTE | 2021-02-10 07:22 | RAD REPORT ---
EXAM DESCRIPTION: RAD - Ankle Right 3 View - 02/10/2021 5:16 am CLINICAL HISTORY: PAIN COMPARISON: Ankle Left 3 View dated 12/07/2016; Foot Right 3 View dated 02/10/2021 FINDINGS: No right ankle fracture or malalignment. IMPRESSION: Unremarkable right ankle.
== END 2021-02-10 05:37 | disposition home or self-care (01) ==
LOC: ER 02:04
DX: S93.401A Sprain of unspecified ligament of right ankle, initial encounter (principal); W50.0XXA Accidental hit or strike by another person, initial encounter; Z91.041 Radiographic dye allergy status; Z91.048 Other nonmedicinal substance allergy status
CPT/HCPCS: 99283

== ENCOUNTER 2021-02-19 03:48 | Emergency (ER) | payer SELFPAY ==
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
[2021-02-19] MEDS ORDERED: ONDANSETRON 4 MG (ODT) TAB ONE (04:28)
--- NOTE | 2021-02-19 06:06 | ER ---
Nurse's Notes [facility] Name: Elba Wells Age: 25 yrs Sex: Female : 1995 Arrival Date: 02/19/2021 Time: 03:49 Bed 12 Private MD: Diagnosis: Other specified viral diseases-COVID - 19 Presentation: 02/19 03:59 Chief complaint: Patient states: body aches, fever, N/V/D, and cough that started about em 1 week ago. Coronavirus screen: Vaccine status: Patient reports being unvaccinated. Ebola Screen: Patient negative for fever greater than or equal to 101.5 degrees Fahrenheit, and additional compatible Ebola Virus Disease symptoms Patient denies exposure to infectious person. Patient denies travel to an Ebola-affected area in the 21 days before illness onset. No symptoms or risks identified at this time. Initial Sepsis Screen: Does the patient meet any 2 criteria? No. Patient's initial sepsis screen is negative. Does the patient have a suspected source of infection? No. Patient's initial sepsis screen is negative. Risk Assessment: Do you want to hurt yourself or someone else? Patient reports no desire to harm self or others. Onset of symptoms was February 19, 2021. 03:59 Method Of Arrival: Ambulatory em 03:59 Acuity: CED 4 em DIRECTOR TRANSLATION: 04:00 LMP 02/06/2021 em Historical: - Allergies: 04:00 Iodine; em 04:00 IV contrast; em - PMHx: 04:00 Anxiety; Asthma; Cholelithiasis; em - PSHx: 04:00 section; Tonsillectomy; adenoid; em - Immunization history:: Client reports having NOT received the Covid vaccine. - Social history:: Smoking status: Patient denies any tobacco usage or history of. - Family history:: not pertinent. Screenin:00 Abuse screen: Denies threats or abuse. Nutritional screening: No deficits noted. em Tuberculosis screening: No symptoms or risk factors identified. Fall Risk None identified. Assessment: 04:00 General: Appears in no apparent distress. uncomfortable, Behavior is calm, cooperative, em appropriate for age. Pain: Complains of pain in throat. Neuro: Level of Consciousness is awake, alert, obeys commands, Oriented to person, place, time, situation, Appropriate for age. Cardiovascular: Capillary refill < 3 seconds Patient's skin is warm and dry. Respiratory: Airway is patent Respiratory effort is even, unlabored, Respiratory pattern is regular, symmetrical. GI: Reports nausea, vomiting. EENT: Oral mucosa is moist. Throat is reddened with gag reflex present. Derm: Skin is intact, is healthy with good turgor, Skin is pink, warm \T\ dry. Musculoskeletal: Capillary refill < 3 seconds, Range of motion: intact in all extremities. Vital Signs: 03:59 BP 118 / 83; Pulse 79; Resp 18; Temp 97.1; Pulse Ox 96% on R/A; Weight 102.06 kg; em Height 5 ft. 7 in. (170.18 cm); 06:16 BP 115 / 75; Pulse 72; Resp 18; Pulse Ox 98% on R/A; Pain 2/10; wg 03:59 Body Mass Index 35.24 (102.06 kg, 170.18 cm) em ED Course: 03:49 Patient arrived in ED. 03:59 Brady Delgado RN is Primary Nurse. em 04:00 Triage completed. em 04:00 Arm band placed on. em 04:00 Patient has correct armband on for positive identification. Adult w/ patient. em 05:46 Dagoberto Cr MD is Attending Physician. ma2 06:14 No provider procedures requiring assistance completed. Patient did not have IV access em during this emergency room visit. Administered Medications: 04:06 Drug: Ondansetron 4 mg Route: PO; em 06:04 Follow up: Response: No adverse reaction em 06:17 Follow up: Response: No adverse reaction; Nausea is decreased wg 06:04 Drug: Tylenol 1000 mg Route: PO; em 06:17 Follow up: Response: No adverse reaction Outcome: 06:06 Discharge ordered by . ma2 06:16 Discharged to home wg 06:16 Condition: stable 06:16 Discharge instructions given to patient, Instructed on discharge instructions, follow up and referral plans. medication usage, Demonstrated understanding of instructions, follow-up care, medications, Prescriptions given X 4. 06:18 Patient left the ED. wg Signatures: Brady Delgado RN RN Dagoberto Cr MD MD ma2 Brittney Sosa Gamba, Sloan, RN wg
--- NOTE | 2021-02-19 06:06 | EDPHYS ---
Physician Documentation [facility] Name: Elba Wells Age: 25 yrs Sex: Female : 1995 Arrival Date: 02/19/2021 Time: 03:49 Bed 12 Private MD: ED Physician Dagoberto Cr HPI: 02/19 06:02 This 25 yrs old Female presents to ER via Ambulatory with complaints of Cough, ma2 Body aches, Fever. 06:02 Onset: The symptoms/episode began/occurred gradually, 1 day(s) ago. Severity of ma2 symptoms: At their worst the symptoms were moderate, in the emergency department the symptoms are unchanged. Associated signs and symptoms: Pertinent negatives: diarrhea, ear ache, fever, nausea, rhinorrhea, vomiting. The patient has not experienced similar symptoms in the past. 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 - Social history:: Smoking status: Patient denies any tobacco usage or history of. - Family history:: not pertinent. ROS: 06:02 Constitutional: Negative for fever, chills, and weight loss. ma2 06:02 All other systems are negative. Exam: 06:02 Constitutional: This is a well developed, well nourished patient who is awake, alert, ma2 and in no acute distress. Head/Face: Normocephalic, atraumatic. Eyes: Pupils equal round and reactive to light, extra-ocular motions intact. Lids and lashes normal. Conjunctiva and sclera are non-icteric and not injected. Cornea within normal limits. Periorbital areas with no swelling, redness, or edema. ENT: Nares patent. No nasal discharge, no septal abnormalities noted. Tympanic membranes are normal and external auditory canals are clear. Oropharynx with no redness, swelling, or masses, exudates, or evidence of obstruction, uvula midline. Mucous membranes moist. Neck: Trachea midline, no thyromegaly or masses palpated, and no cervical lymphadenopathy. Supple, full range of motion without nuchal rigidity, or vertebral point tenderness. No Meningismus. Chest/axilla: Normal chest wall appearance and motion. Nontender with no deformity. No lesions are appreciated. Cardiovascular: Regular rate and rhythm with a normal S1 and S2. No gallops, murmurs, or rubs. Normal PMI, no JVD. No pulse deficits. Respiratory: Lungs have equal breath sounds bilaterally, clear to auscultation and percussion. No rales, rhonchi or wheezes noted. No increased work of breathing, no retractions or nasal flaring. Abdomen/GI: Soft, non-tender, with normal bowel sounds. No distension or tympany. No guarding or rebound. No evidence of tenderness throughout. Back: No spinal tenderness. No costovertebral tenderness. Full range of motion. Skin: Warm, dry with normal turgor. Normal color with no rashes, no lesions, and no evidence of cellulitis. MS/ Extremity: Pulses equal, no cyanosis. Neurovascular intact. Full, normal range of motion. Neuro: Awake and alert, GCS 15, oriented to person, place, time, and situation. Cranial nerves II-XII grossly intact. Motor strength 5/5 in all extremities. Sensory grossly intact. Cerebellar exam normal. Normal gait. Vital Signs: 03:59 BP 118 / 83; Pulse 79; Resp 18; Temp 97.1; Pulse Ox 96% on R/A; Weight 102.06 kg; em Height 5 ft. 7 in. (170.18 cm); 06:16 BP 115 / 75; Pulse 72; Resp 18; Pulse Ox 98% on R/A; Pain 2/10; wg 03:59 Body Mass Index 35.24 (102.06 kg, 170.18 cm) em MDM: 05:46 Patient medically screened. ma2 06:05 Differential Diagnosis: Influenza Upper Respiratory Infection Sinusitis Pharyngitis ma2 Viral Syndrome. Data reviewed: vital signs, nurses notes. Counseling: I had a detailed discussion with the patient and/or guardian regarding: the historical points, exam findings, and any diagnostic results supporting the discharge/admit diagnosis, the presence of at least one elevated blood pressure reading (>120/80) during this emergency department visit, the need for outpatient follow up. Response to treatment: the patient's symptoms have markedly improved after treatment. 02/19 04:02 Order name: Strep em 02/19 04:03 Order name: Group A Streptococcus Rapid Sc; Complete Time: 05:46 EDMS 02/19 05:41 Order name: SARS-COV-2 RT PCR; Complete Time: 05:46 EDMS 02/19 05:45 Order name: Throat Culture EDMS 02/19 06:00 Order name: PO challenge; Complete Time: 06:04 ma2 Administered Medications: 04:06 Drug: Ondansetron 4 mg Route: PO; em 06:04 Follow up: Response: No adverse reaction em 06:17 Follow up: Response: No adverse reaction; Nausea is decreased wg 06:04 Drug: Tylenol 1000 mg Route: PO; em 06:17 Follow up: Response: No adverse reaction wg Disposition Summary: 02/19/21 06:06 Discharge Ordered Location: Home ma2 Condition: Stable ma2 Diagnosis - Other specified viral diseases - COVID - 19 ma2 Followup: ma2 - With: Private Physician - When: Tomorrow - Reason: Recheck today's complaints, Continuance of care Discharge Instructions: - Discharge Summary Sheet ma2 - COVID-19 ma2 - COVID-19 Frequently Asked Questions ma2 - 10 Things You Can Do to Manage Your COVID-19 Symptoms at Home - [facility] ma2 Forms: - Medication Reconciliation Form ma2 - Thank You Letter ma2 - Antibiotic Education ma2 - Prescription Opioid Use ma2 - Work release form em Prescriptions: - Zofran 4 mg Oral Tablet - take 1 tablet by ORAL route every 12 hours As needed; 20 tablet; Refills: 0, ma2 Product Selection Permitted - Diclofenac Sodium 75 mg Oral Tablet Sustained Release - take 1 tablet by ORAL route 2 times per day; 30 tablet; Refills: 0, Product ma2 Selection Permitted - Zithromax Z-Nicolas 250 mg Oral Tablet - take 1 tablet by ORAL route as directed for 5 days Day 1 - take two (2) tablets ma2 one time. Day 2, 3, 4 , 5 take one (1) tablet once daily.; 6 tablet; Refills: 0, Product Selection Permitted - Medrol (Nicolas) 4 mg Oral Tablets, Dose Pack - take 1 tablet by ORAL route as directed - follow package instructions; 1 ma2 packet; Refills: 0, Product Selection Permitted Signatures: Dispatcher [employer] Brady Cortez, BALDOMERO RN Dagoberto Cuevas MD MD ma2 Sloan Caceres RN wg Corrections: (The following items were deleted from the chart) 04:14 04:03 CORONAVIRUS+Z ordered. ANN JUAREZ
[2021-02-19 06:23] VITALS: TEMP 97.1
[2021-02-19 06:24] VITALS: BP 115/75; O2SAT 98
[2021-02-19] MEDS ORDERED: ACETAMINOPHEN 500 MG TAB ONE (06:24)
== END 2021-02-19 06:18 | disposition home or self-care (01) ==
LOC: ER 03:48
DX: U07.1 COVID-19 (principal); Z91.041 Radiographic dye allergy status; Z91.048 Other nonmedicinal substance allergy status
CPT/HCPCS: 87070; 87081; 99283; U0003

== ENCOUNTER 2021-06-01 18:53 | Emergency (ER) | payer SELFPAY ==
--- OUTSIDE RECORDS SUMMARY | 2021-06-01 18:59 | XMS REPORT | Continuity of Care Document ---
:1995 Author Organization [facility] t Address [address] [place] [address] [address]. [address] [place] [address] Care Team Providers Name Role Phone PCP, PATIENT DOES NOT HAVE A Primary Care Physician Unavaila ble AKINAKANKSHA C Attending Clinician Unavailable Roman MAN C Attending Clinician Carlos BENAVIDEZ Attending Clinician Unavailable Salina Duarte Attending Clinician Demetrio ALEXANDRE Attending Clinician Unavailable Puja Melissa MD Attending Clinician Faustino Marshall DO Attending Clinician Alannah WILLOUGHBY Attending Clinician Unavailable Alannah Downey Attending Clinician Ivan Grider MD Attending Clinician IVAN GRIDER Attending Clinician Unavailable SALINA KEMP Attending Clinician Unavailable Alannah Logan Attending Clinician Alannah LUNA Attending Clinician Unavailable Paulino TONY Attending Clinician PAULINO Attending Clinician Unavailable BETO AN, Marlene Attending Clinician Unavailable Marlene Saldana Attending Clinician Doctor Unassigned, Name Attending Clinician Unavailable IVAN GRIDER Admitting Clinician Unavailable SALINA KEMP Admitting Clinician Unavailable Alannah LUNA Admitting Clinician Unavailable PAULINO Admitting Clinician Unavailable Marlene ARCE III Admitting Clinician Unavailable Payers Payer Name Policy Type Policy Number Effective Date Expiration Date Puja bobo MEDICAID PENDING PENDING 2019 2019 00:00:00 00:00:00 Advance Directives Directive Decision Effective Termination Comments Source Date Date Healthcare Agents on N/A [facility] ersity FileNameRelationshipHealthcare of [place] Agent Medical RelationshipCommunicationErlinda Branch NunezOtherFirst alternate healthcare [phone] (Mobile) Problems Condition Condition Condition Status Onset Resolution Last Treating Co mments Source Name Details Category Date Date Treatment Clinician Date Class 2 Class 2 Disease Active Univers obesity obesity 07 [place] with body [place] mass index mass index 00 Me dical (BMI) of (BMI) of Branch 35.0 to 35.0 to 35.9 in 35.9 in adult, adult, unspecifie unspecifie d obesity d obesity type, type, unspecifie unspecifie d whether d whether serious serious comorbidit comorbidit y present y present Need for Need for Disease Active Unive rs HPV HPV 07 it[place] Screening Screening Disease Active 2017-06 Uni vers examinatio examinatio 06-26 it y of n for STD n for STD [place] ([place]ually (sexually 00 [facility] kavon transmitte transmitte Br anch d disease) d disease) Well woman Well woman Disease Active 2017-06 U nivers exam exam 106 ity of 00:00: [place] 00 Medical Branch Contracept Contracept Disease Active 2017-06 U nivers debra debra 106 [place] of management management [place] Overweight Overweight Disease Active U nivers 2- ity of 00:00: [place] 00 Medical Branch BMI BMI Disease Active Univers 35.0-35.9, 35.0-35.9, 4-06 it y of adult adult 00:00: [place] 00 Medical Branch Allergies, Adverse Reactions, Alerts Allergy Allergy Status Severity Reaction(s) Onset Inactive Treating Comm ents Source Name Type Date Date Clinician Iodine Propensi Active Swelling Univer s ty to 07-22 ity of adverse 00:00: [place] reaction 00 Medical s Branch IODINE DRUG Active Swelling Univers INGREDI 07-22 ity of 00:00: [place] 00 Medical Branch Social History Social Habit Start Date Stop Date Quantity Comments Source Exposure to Yes [facility] SARS-CoV-2 [place] [facility] (event) Branch Alcohol intake 2021-03-16 2021-03-16 Current drinker Unive rsity of 00:00:00 00:00:00 of alcohol [place] [facility] (finding) Branch History SDOH 2020-06-27 2020-06-27 3 University o f Alcohol Frequency 00:00:00 00:00:00 [place] [facility] ed[facility] Branch History SDOH 2020-06-27 2020-06-27 99 University o f Alcohol Std 00:00:00 00:00:00 [place] [facility] Drinks Branch History SDWI 2020-06-27 2020-06-27 99 University o f Alcohol Binge 00:00:00 00:00:00 [place] [facility] al [facility] Alcohol Comment 2020-06-27 2020-06-27 on occassion, Univer sity of 00:00:00 00:00:00 liquor and beer [place] [facility] ical on occassions. Branch Tobacco use and 2016-02-11 2016-02-11 Never used Universit y of exposure 00:00:00 00:00:00 [facility] Sex Assigned At [birth year] Universit y of 00:00:00 00:00:00 [facility] Smoking Status Start Date Stop Date Source [facility] Medications Ordered Filled Start Stop Current Ordering Indication Dosage Frequency Signature Comments Components Source Medication Medication Date Date Medication? Clinician (SIG) Name Name ibuprofen Yes [id number] 600mg Take 1 Univers 600 mg 9-27 [id number] tablet by ity of tablet 00:00: mouth [place] 00 every 6 Medical (six) Branch hours as needed for Pain (scale 4-6). ibuprofen Yes [id number] 600mg Take 1 Univers 600 mg 9-27 [id number] tablet by ity of tablet 00:00: mouth [place] 00 every 6 Medical (six) Branch hours as needed for Pain (scale 4-6). ibuprofen 2020-0 2020- No 600mg 600 mg, Uni vers (IBU) 02-19 Oral, ity of tablet 600 08:45: 07:44 ONCE, 1 [place] mg 00 :00 dose, [facility] 02/19/21 at Branch 0345, DOUGLAS ibuprofen 2020-0 2020- No 600mg 600 mg, Uni vers (IBU) 02-19 Oral, ity of tablet 600 08:45: 07:44 ONCE, 1 [place] mg 00 :00 dose, [facility] 02/19/21 at Branch 0345, DOUGLAS omeprazole 2020-0 Yes 10mg Take 10 mg U nivers 10 mg 1-07 by mouth ity of capsule 21:45: daily. [address] omeprazole 2020-0 Yes 10mg Take 10 mg U nivers 10 mg 1-07 by mouth ity of capsule 21:45: daily. [address] cetirizine 0 Yes Take by Uni vers HCl (ZYRTEC 1-07 mouth. ity of ORAL) 21:45: [address] cetirizine 2020-0 Yes Take by Uni vers HCl (ZYRTEC 1-07 mouth. ity of ORAL) 21:45: [address] omeprazole 2020-0 Yes 10mg Take 10 mg U nivers 10 mg 1-07 by mouth ity of capsule 21:45: daily. [address] cetirizine 2020-0 Yes Take by Uni vers HCl (ZYRTEC 1-07 mouth. ity of ORAL) 21:45: [address] omeprazole 2020-0 Yes 10mg Take 10 mg U nivers 10 mg 1-07 by mouth ity of capsule 21:45: daily. [address] cetirizine 2020-0 Yes Take by Uni vers HCl (ZYRTEC 1-07 mouth. ity of ORAL) 21:45: [address] omeprazole 2020-0 Yes 10mg Take 10 mg U nivers 10 mg 1-07 by mouth ity of capsule 21:45: daily. [address] cetirizine 2020-0 Yes Take by Uni vers HCl (ZYRTEC 1-07 mouth. ity of ORAL) 21:45: [address] omeprazole 2020-0 Yes 10mg Take 10 mg U nivers 10 mg 1-07 by mouth ity of capsule 21:45: daily. [address] cetirizine 2020-0 Yes Take by Uni vers HCl (ZYRTEC 1-07 mouth. ity of ORAL) 21:45: [address] omeprazole 2020-0 Yes 10mg Take 10 mg U nivers 10 mg 1-07 by mouth ity of capsule 21:45: daily. [address] cetirizine 2020-0 Yes Take by Uni vers HCl (ZYRTEC 1-07 mouth. ity of ORAL) 21:45: [address] omeprazole 2020-0 Yes 10mg Take 10 mg U nivers 10 mg 1-07 by mouth ity of capsule 15:45: daily. [address] cetirizine 2020-0 Yes Take by Uni vers HCl (ZYRTEC 1-07 mouth. ity of ORAL) 15:45: [address] omeprazole 2020-0 Yes 10mg Take 10 mg U nivers 10 mg 1-07 by mouth ity of capsule 15:45: daily. [address] cetirizine 2020-0 Yes Take by Uni vers HCl (ZYRTEC 1-07 mouth. ity of ORAL) 15:45: [address] FENTanyl PF 2019-06- No 50ug 50 mcg, Un phuong (SUBLIMAZE 0-08 10-08 Slow IV ity o f (PF)) 05:45: 05:13 Push, [place] injection 00 :00 ONCE, 1 Medical 50 mcg dose, [facility] 03/28/20 at 0045, STAT metoclopram 2019-06- No 10mg 10 mg, Uni vers julia HCl 0-08 10-08 Slow IV ity of (REGLAN) 02:15: 01:29 [place], [place] injection 00 :00 ONCE, 1 Medical 10 mg dose, [facility] 03/27/20 at 2115, DOUGLAS diphenhydrA 2019-06- No 25mg 25 mg, Uni vers MINE 0-08 10-08 Slow IV ity of (BENADRYL) 02:15: 01:29 Push, [place] injection 00 :00 ONCE, 1 Medical 25 mg dose, [facility] 03/27/20 at 2115, STAT ketorolac 2019-06 No 30mg 30 mg, Unive rs (TORADOL) 0-08 10-08 Slow IV ity of injection 02:15: 01:29 Push, [place] 30 mg 00 :00 ONCE, 1 Medical dose, Wed Branch 03/27/20 at 2115, DOUGLAS
[facility] member approving Restricted medication : Sam KEMP NaCl 0.9% 2019-06- No 1000mL at 999 Uni vers (NS) bolus 0-08 10-08 mL/hr, ity of infusion 02:15: 03:33 1,000 mL, [place] 1,000 mL 00 :00 IV Medical Infusion, Branch ONCE, 1 dose, 03/27/20 at 2115, STAT ibuprofen 2019-06 Yes [id number] 600mg Take 1 Univers 600 mg 0-07 tablet by ity of tablet 00:00: mouth [place] 00 every 6 Medical (six) Branch hours as needed for Pain (scale 4-6). ondansetron 2019-06 Yes [id number] 4mg Take 1 Univers (ZOFRAN 0-07 tablet by ity of ODT) 4 mg 00:00: mouth [place] disintegrat 00 every 8 Medic al ing tablet (eight) Branch hours as needed for Nausea and Vomiting (N/V). ibuprofen 2019-06 No [id number] 600mg Take 1 Univers 600 mg 0-07 01-07 tablet by ity of tablet 00:00: 00:00 mouth [place] 00 :00 every 6 Medical (six) Branch hours as needed for Pain (scale 4-6). ondansetron 2019-06 No [id number] 4mg Take 1 Univers (ZOFRAN 0-07 01-07 tablet by ity of ODT) 4 mg 00:00: 00:00 mouth [place] disintegrat 00 :00 every 8 Medic al ing tablet (eight) Branch hours as needed for Nausea and Vomiting (N/V). ibuprofen 2019-06- No [id number] 600mg Take 1 Univers 600 mg 0-07 01-07 tablet by ity of tablet 00:00: 00:00 mouth [place] 00 :00 every 6 Medical (six) Branch hours as needed for Pain (scale 4-6). ondansetron 2019-06 No [id number] 4mg Take 1 Univers (ZOFRAN 0-07 -07 tablet by ity of ODT) 4 mg 00:00: 00:00 mouth [place] disintegrat 00 :00 every 8 Medic al ing tablet (eight) Branch hours as needed for Nausea and Vomiting (N/V). ondansetron 2019-2019- No 8mg 8 mg, Slow Univers (ZOFRAN 12-0416 IV Push, ity of (PF)) 08:00: 06:57 ONCE, 1 [place] injection 8 00 :00 dose, Tue Med ical mg 12/05/19 at Branch 0300, DOUGLAS morpHINE 2019-2019- No 4mg 4 mg, Slow Un phuong injection 4 12-0416 IV Push, ity of mg 08:00: 06:57 ONCE, 1 [place] 00 :00 dose, Tue Medical 12/05/19 at Branch 0300, STAT NaCl 0.9% 2019- No 1000mL at 999 Uni vers (NS) bolus 12-04 mL/hr, ity of infusion 07:00: 08:35 1,000 mL, [place] 1,000 mL 00 :00 IV Medical Infusion, Branch ONCE, 1 dose, 12/05/19 at 0200, DOUGLAS traMADol 50 2020-0 Yes [id number] 50mg Take 1 Univers mg tablet 6-16 tablet by ity o f 00:00: mouth [place] 00 every 6 Medical (six) Branch hours as needed (pain). proMETHazin 2020-0 Yes [id number] 25mg Take 1 Univers e 25 mg 6-16 tablet by ity of tablet 00:00: mouth [place] 00 every 6 Medical (six) Branch hours as needed for Nausea and Vomiting (N/V). traMADol 50 2020-0 Yes [id number] 50mg Take 1 Univers mg tablet 6-16 tablet by ity o f 00:00: mouth [place] 00 every 6 Medical (six) Branch hours as needed (pain). proMETHazin 2020-0 Yes [id number] 25mg Take 1 Univers e 25 mg 6-16 tablet by ity of tablet 00:00: mouth [place] 00 every 6 Medical (six) Branch hours as needed for Nausea and Vomiting (N/V). traMADol 50 2019-0 2020- No [id number] 50mg Take 1 Univers mg tablet 12-04 tablet by ity of 00:00: 00:00 mouth [place] 00 :00 every 6 Medical (six) Branch hours as needed (pain). proMETHazin 2019- No [id number] 25mg Take 1 Univers e 25 mg 12-04 tablet by ity of tablet 00:00: 00:00 mouth [place] 00 :00 every 6 Medical (six) Branch hours as needed for Nausea and Vomiting (N/V). traMADol 50 No [id number] 50mg Take 1 Univers mg tablet 12-04 tablet by ity of 00:00: 00:00 mouth [place] 00 :00 every 6 Medical (six) Branch hours as needed (pain). proMETHazin 2019- [id number] 25mg Take 1 Univers e 25 mg 12-04 tablet by ity of tablet 00:00: 00:00 mouth [place] 00 :00 every 6 Medical (six) Branch hours as needed for Nausea and Vomiting (N/V). ondansetron 2019-0 2019- No 4mg 4 mg, Slow Univers (ZOFRAN 11-15 05-28 IV Push, ity of (PF)) 04:00: 03:11 ONCE, 1 [place] injection 4 00 :00 dose, Wed Med ical mg 11/15/19 at Branch 2300, DOUGLAS FENTanyl PF 2019-0 2019- No 25ug 25 mcg, Un phuong (SUBLIMAZE 11-15-28 Slow IV ity o f (PF)) 04:00: 03:11 Push, [place] injection 00 :00 ONCE, 1 Medical 25 mcg dose, Wed Branch 11/15/19 at 2300, STAT morpHINE 2019-0 2020- No 4mg 4 mg, Slow Un phuong injection 4 11-15-28 IV Push, ity of mg 02:15: 01:24 ONCE, 1 [place] 00 :00 dose, Wed Medical 11/15/19 at Branch 2115, Routine ondansetron 2020-0 2020- No 4mg 4 mg, Slow Univers (ZOFRAN 11-15 05-28 IV Push, ity of (PF)) 02:15: 01:23 ONCE, 1 [place] injection 4 00 :00 dose, Wed Med ical mg 11/15/19 at Branch 2115, DOUGLAS NaCl 0.9% 2019- No 1000mL at 999 Uni vers (NS) bolus 5-28 05-28 mL/hr, ity of infusion 02:15: 04:49 1,000 mL, [place] 1,000 mL 00 :00 IV Medical Infusion, Branch ONCE, 1 dose, 11/15/19 at 2115, STAT ibuprofen 2019- Yes [id number] 600mg Take 1 U nivers 600 mg 5-27 tablet by ity of tablet 00:00: mouth [place] 00 every 6 Medical (six) Branch hours as needed for Pain (scale 4-6). acetaminoph 2019- Yes [id number] 1{tbl} Take 1 Univers en-codeine 5-27 tablet by ity of 300-30 mg 00:00: mouth [place] tablet 00 every 4 Medical (four) Branch hours as needed for Pain (scale 4-6). ibuprofen Yes [id number] 600mg Take 1 U nivers 600 mg 5-27 tablet by ity of tablet 00:00: mouth [place] 00 every 6 Medical (six) Branch hours as needed for Pain (scale 4-6). acetaminoph Yes [id number] 1{tbl} Take 1 Univers en-codeine 5-27 tablet by ity of 300-30 mg 00:00: mouth [place] tablet 00 every 4 Medical (four) Branch hours as needed for Pain (scale 4-6). ibuprofen Yes [id number] 600mg Take 1 U nivers 600 mg 5-27 tablet by ity of tablet 00:00: mouth [place] 00 every 6 Medical (six) Branch hours as needed for Pain (scale 4-6). acetaminoph Yes [id number] 1{tbl} Take 1 Univers en-codeine 5-27 tablet by ity of 300-30 mg 00:00: mouth [place] tablet 00 every 4 Medical (four) Branch hours as needed for Pain (scale 4-6). ibuprofen 2020- No [id number] 600mg Take 1 Univers 600 mg 5-27 01-07 tablet by ity of tablet 00:00: 00:00 mouth [place] 00 :00 every 6 Medical (six) Branch hours as needed for Pain (scale 4-6). acetaminoph 2019-2020- No [id number] 1{tbl} Take 1 Univers en-codeine 5-27 01- tablet by ity of 300-30 mg 00:00: 00:00 mouth [place] tablet 00 :00 every 4 Medical (four) Branch hours as needed for Pain (scale 4-6). ibuprofen 2019- No [id number] 600mg Take 1 Univers 600 mg 11-14- tablet by ity of tablet 00:00: 00:00 mouth [place] 00 :00 every 6 Medical (six) Branch hours as needed for Pain (scale 4-6). acetaminoph 2019-2020- No [id number] 1{tbl} Take 1 Univers en-codeine 11-14- tablet by ity of 300-30 mg 00:00: 00:00 mouth [place] tablet 00 :00 every 4 Medical (four) Branch hours as needed for Pain (scale 4-6). ketorolac 2019- No 30mg 30 mg, Unive rs (TORADOL) 10-18 Slow IV ity of injection 10:45: 10:20 Push, [place] 30 mg 00 :00 ONCE, 1 Medical dose, [place] Branch 10/19/19 at 0545, DOUGLAS
Fa culty member approving Restricted medication : LUISA LUNA dexamethaso 2019- No 10mg 10 mg, IV Univers ne 10-18 Push, ity of (DECADRON 10:45: 10:20 ONCE, 1 [place] PHOSPHATE) 00 :00 dose, [place] Medi kavon injection 10/19/19 at Bran ch 10 mg 0545, STAT maalox:diph 2019- No 15mL 15 mL, Uni vers enhydrAMINE 10-18 Oral, ity of :lidocaine 10:45: 10:20 ONCE, 1 [place] 2 % viscous 00 :00 dose, [place] Med ical 1:1:1 10/19/19 at Branch (FIRST-MOUT 0545, HWASH BLM) Routine oral suspension 15 mL famotidine 2019- No 20mg 20 mg, Univ ers (PEPCID 10-18 Slow IV ity of (PF)) 10:45: 10:20 Push, [place] injection 00 :00 ONCE, 1 Medical 20 mg dose, [facility] Branch 10/19/19 at 0545, DOUGLAS NaCl 0.9% 2019-0 2020- No 1000mL at 999 Uni vers (NS) bolus 4-30 04-30 mL/hr, ity of infusion 10:45: 11:17 1,000 mL, [place] as 1,000 mL 00 :00 IV Medical Infusion, Branch ONCE, 1 dose, [place] 10/19/19 at 0545, STAT acetaminoph 2020-0 2020- No 1{tbl} 1 tablet, Univers en-codeine 3-12 -12 Oral, ity of (TYLENOL 11:00: 09:52 ONCE, 1 [place] #3) 300-30 00 :00 dose, [place] Medi kavno mg tablet 1 08/31/19 at Br anch tablet 0600, DOUGLAS ondansetron 2019-0 2020- No 4mg 4 mg, Univ ers (ZOFRAN-ODT 3-12 -12 Oral, ity of ) 10:15: 09:07 ONCE, 1 [place] disintegrat 00 :00 dose, [place] Med ical ing tablet 08/31/19 at [facility] [address] 4 mg 0515, Routine ondansetron 2020-0 Yes [id number] 4mg Take 1 Univers 4 mg 3-12 tablet by ity of disintegrat 00:00: mouth [place] ing tablet 00 every 4 Medica l (four) Branch hours as needed for Nausea and Vomiting (N/V). acetaminoph 2020-0 Yes [id number] 1{tbl} Take 1-2 Univers en-codeine 3-12 tablets by ity of 300-30 mg 00:00: mouth [place] tablet 00 every 6 Medical (six) Branch hours as needed (cough). ibuprofen 2020-0 Yes [id number] 800mg Take 1 U nivers 800 mg 3-12 tablet by ity of tablet 00:00: mouth [place] 00 every 8 Medical (eight) Branch hours as needed for Pain (scale 4-6). ondansetron 2020-0 Yes [id number] 4mg Take 1 Univers 4 mg 3-12 tablet by ity of disintegrat 00:00: mouth [place] ing tablet 00 every 4 Medica l (four) Branch hours as needed for Nausea and Vomiting (N/V). acetaminoph 2020-0 Yes [id number] 1{tbl} Take 1-2 Univers en-codeine 3-12 tablets by ity of 300-30 mg 00:00: mouth [place] tablet 00 every 6 Medical (six) Branch hours as needed (cough). ibuprofen 2020-0 Yes [id number] 800mg Take 1 U nivers 800 mg 3-12 tablet by ity of tablet 00:00: mouth [place] 00 every 8 Medical (eight) Branch hours as needed for Pain (scale 4-6). ondansetron 2020-0 Yes [id number] 4mg Take 1 Univers 4 mg 3-12 tablet by ity of disintegrat 00:00: mouth [place] ing tablet 00 every 4 Medica l (four) Branch hours as needed for Nausea and Vomiting (N/V). acetaminoph 2020-0 Yes [id number] 1{tbl} Take 1-2 Univers en-codeine 3-12 tablets by ity of 300-30 mg 00:00: mouth [place] tablet 00 every 6 Medical (six) Branch hours as needed (cough). ibuprofen 2020-0 Yes [id number] 800mg Take 1 U nivers 800 mg 3-12 tablet by ity of tablet 00:00: mouth [place] 00 every 8 Medical (eight) Branch hours as needed for Pain (scale 4-6). ondansetron 2020-0 Yes [id number] 4mg Take 1 Univers 4 mg 3-12 tablet by ity of disintegrat 00:00: mouth [place] ing tablet 00 every 4 Medica l (four) Branch hours as needed for Nausea and Vomiting (N/V). acetaminoph 2020-0 Yes [id number] 1{tbl} Take 1-2 Univers en-codeine 3-12 tablets by ity of 300-30 mg 00:00: mouth [place] tablet 00 every 6 Medical (six) Branch hours as needed (cough). ibuprofen 2020-0 Yes [id number] 800mg Take 1 U nivers 800 mg 3-12 tablet by ity of tablet 00:00: mouth [place] 00 every 8 Medical (eight) Branch hours as needed for Pain (scale 4-6). ondansetron 2020-0 Yes [id number] 4mg Take 1 Univers 4 mg 3-12 tablet by ity of disintegrat 00:00: mouth [place] ing tablet 00 every 4 Medica l (four) Branch hours as needed for Nausea and Vomiting (N/V). acetaminoph 2020-0 Yes [id number] 1{tbl} Take 1-2 Univers en-codeine 3-12 tablets by ity of 300-30 mg 00:00: mouth [place] tablet 00 every 6 Medical (six) Branch hours as needed (cough). ibuprofen Yes [id number] 800mg Take 1 U nivers 800 mg 3-12 tablet by ity of tablet 00:00: mouth [place] 00 every 8 Medical (eight) Branch hours as needed for Pain (scale 4-6). ondansetron 2020- No [id number] 4mg Take 1 Univers 4 mg 3-12 - tablet by ity of disintegrat 00:00: 00:00 [place] tablet 00 :00 every 4 Medica l (four) Branch hours as needed for Nausea and Vomiting (N/V). acetaminoph 2020- No [id number] 1{tbl} Take 1-2 Univers en-codeine 3-05 21- tablets by it y of 300-30 mg 00:00: 00:00 mouth [place] tablet 00 :00 every 6 Medical (six) Branch hours as needed (cough). ibuprofen No [id number] 800mg Take 1 Univers 800 mg 3-12 - tablet by ity of tablet 00:00: 00:00 mouth [place] 00 :00 every 8 Medical (eight) Branch hours as needed for Pain (scale 4-6). ondansetron 2020- No [id number] 4mg Take 1 Univers 4 mg 3-12 - tablet by ity of disintegrat 00:00: 00:00 [place] tablet 00 :00 every 4 Medica l (four) Branch hours as needed for Nausea and Vomiting (N/V). acetaminoph No [id number] 1{tbl} Take 1-2 Univers en-codeine 3-05 21-07 tablets by it y of 300-30 mg 00:00: 00:00 mouth [place] tablet 00 :00 every 6 Medical (six) Branch hours as needed (cough). ibuprofen 2020- No [id number] 800mg Take 1 Univers 800 mg 3-12 -07 tablet by ity of tablet 00:00: 00:00 mouth [place] 00 :00 every 8 Medical (eight) Branch hours as needed for Pain (scale 4-6). sod 2018-06 Yes [id number] 1{bottl Use 1 Unive rs chlor-bicar 2-20 e} Bottle in ity of b-squeez 00:00: each [place] bottle 00 nostril 2 Medical (NEILMED (two) Branch SINUS RINSE times COMPLETE) daily. Use pkdv in hot shower 1 hour before bedtime promethazin 2018-06 Yes [id number] 5mL Take 5 mL Univers e-codeine 2-20 by mouth 4 ity of 6.25-10 00:00: (four) [place] mg/5 mL 00 times Medical syrup daily as Branch needed for Cough. sod 2018-06 Yes [id number] 1{bottl Use 1 Unive rs chlor-bicar 2-20 e} Bottle in ity of b-squeez 00:00: each [place] bottle 00 nostril 2 Medical (NEILMED (two) Branch SINUS RINSE times COMPLETE) daily. Use pkdv in hot shower 1 hour before bedtime promethazin 2018-06 Yes [id number] 5mL Take 5 mL Univers e-codeine 2-20 by mouth 4 ity of 6.25-10 00:00: (four) [place] mg/5 mL 00 times Medical syrup daily as Branch needed for Cough. sod 2018-06 Yes [id number] 1{bottl Use 1 Unive rs chlor-bicar 2-20 e} Bottle in ity of b-squeez 00:00: each [place] bottle 00 nostril 2 Medical (NEILMED (two) Branch SINUS RINSE times COMPLETE) daily. Use pkdv in hot shower 1 hour before bedtime promethazin 2018-06 Yes [id number] 5mL Take 5 mL Univers e-codeine 2-20 by mouth 4 ity of 6.25-10 00:00: (four) [place] mg/5 mL 00 times Medical syrup daily as Branch needed for Cough. sod 2018-06 Yes [id number] 1{bottl Use 1 Unive rs chlor-bicar 2-20 e} Bottle in ity of b-squeez 00:00: each [place] bottle 00 nostril 2 Medical (NEILMED (two) Branch SINUS RINSE times COMPLETE) daily. Use pkdv in hot shower 1 hour before bedtime promethazin 2018-06 Yes [id number] 5mL Take 5 mL Univers e-codeine 2-20 by mouth 4 ity of 6.25-10 00:00: (four) [place] mg/5 mL 00 times Medical syrup daily as Branch needed for Cough. sod 2018-06 Yes [id number] 1{bottl Use 1 Unive rs chlor-bicar 2-20 e} Bottle in ity of b-squeez 00:00: each [place] bottle 00 nostril 2 Medical (NEILMED (two) Branch SINUS RINSE times COMPLETE) daily. Use pkdv in hot shower 1 hour before bedtime promethazin 2018-06 Yes [id number] 5mL Take 5 mL Univers e-codeine 2-20 by mouth 4 ity of 6.25-10 00:00: (four) [place] mg/5 mL 00 times Medical syrup daily as Branch needed for Cough. sod 2018-06- No [id number] 1{bottl Use 1 Univ ers chlor-bicar 2-20 - e} Bottle in it y of b-squeez 00:00: 00:00 each [place] bottle 00 :00 nostril 2 Medical (NEILMED (two) Branch SINUS RINSE times COMPLETE) daily. Use pkdv in hot shower 1 hour before bedtime promethazin 2018-06- No [id number] 5mL Take 5 mL Univers e-codeine 2-20 -07 by mouth 4 ity of 6.25-10 00:00: 00:00 (four) [place] mg/5 mL 00 :00 times Medical syrup daily as Branch needed for Cough. sod 2018-06- No [id number] 1{bottl Use 1 Univ ers chlor-bicar 2-20 - e} Bottle in it y of b-squeez 00:00: 00:00 each [place] bottle 00 :00 nostril 2 Medical (NEILMED (two) Branch SINUS RINSE times COMPLETE) daily. Use pkdv in hot shower 1 hour before bedtime promethazin 2018-06- No [id number] 5mL Take 5 mL Univers e-codeine 2-20 -07 by mouth 4 ity of 6.25-10 00:00: 00:00 (four) [place] mg/5 mL 00 :00 times Medical syrup daily as Branch needed for Cough. traMADol 2018-06 Yes [id number] 50mg Take 1 Univers (ULTRAM) 50 1 [id number] tablet by i ty of mg tablet 00:00: mouth [place] 00 every 8 Medical (eight) Branch hours as needed for Pain (scale 4-6). traMADol 2018-06 Yes [id number] 50mg Take 1 Univers (ULTRAM) 50 - [id number] tablet by i ty of mg tablet 00:00: mouth [place] 00 every 8 Medical (eight) Branch hours as needed for Pain (scale 4-6). traMADol 2018-06 Yes [id number] 50mg Take 1 Univers (ULTRAM) 50 - [id number] tablet by i ty of mg tablet 00:00: mouth [place] 00 every 8 Medical (eight) Branch hours as needed for Pain (scale 4-6). traMADol 2018-06 Yes [id number] 50mg Take 1 Univers (ULTRAM) 50 07-11 [id number] tablet by i ty of mg tablet 00:00: mouth [place] 00 every 8 Medical (eight) Branch hours as needed for Pain (scale 4-6). traMADol 2018-06 Yes [id number] 50mg Take 1 Univers (ULTRAM) 50 - [id number] tablet by i ty of mg tablet 00:00: mouth [place] 00 every 8 Medical (eight) Branch hours as needed for Pain (scale 4-6). traMADol 2018-06- No [id number] 50mg Take 1 Univers (ULTRAM) 50 07-11 [id number] tablet by ity of mg tablet 00:00: 00:00 mouth [place] 00 :00 every 8 Medical (eight) Branch hours as needed for Pain (scale 4-6). traMADol 2018-06- No [id number] 50mg Take 1 Univers (ULTRAM) 50 07-11 [id number] tablet by ity of mg tablet 00:00: 00:00 mouth [place] 00 :00 every 8 Medical (eight) Branch hours as needed for Pain (scale 4-6). traMADol Yes [id number] 50mg Take 1 Univers (ULTRAM) 50 - [id number] tablet by i ty of mg tablet 00:00: mouth [place] 00 every 8 Medical (eight) Branch hours as needed for Pain (scale 4-6). ibuprofen Yes [id number] 600mg Take 1 Univers 600 mg 8- [id number] tablet by ity of tablet 00:00: mouth 4 [place] 00 (four) Medical times Branch daily as needed for Pain (scale 4-6). acetaminoph Yes [id number] 975mg Take 3 Univers en 01-29 [id number] tablets by ity of (TYLENOL) 00:00: mouth 4 [place] 325 mg 00 (four) Medical tablet times Branch daily. This is the maximum safe dose for a healthy adult. ibuprofen 2019- No [id number] 600mg Take 1 Univers 600 mg 01-29 [id number] tablet by ity o f tablet 00:00: 00:00 mouth 4 [place] 00 :00 (four) Medical times Branch daily as needed for Pain (scale 4-6) for up to 5 days. acetaminoph 2018- No [id number] 975mg Take 3 Univers en 01-29 [id number] tablets by ity of (TYLENOL) 00:00[place] 00[place] 325 [place] 00 :00 (four) Medical tablet times Branch daily for 5 days. This is the maximum safe dose for a healthy adult. traMADol 2018- No [id number] 50mg Take 1 Univers (ULTRAM) 50 01-29 [id number] tablet by ity of mg tablet 00:00: 00:00 mouth [place] 00 :00 every 8 Medical (eight) Branch hours as needed for Pain (scale 4-6). medroxyPROG 2017-06 2019- No [id number] 150mg Univers ESTERone 06-26-08 ity of (DEPO-PROVE 22:15: 21:14 [place] RA) 00 :00 Medical injection Branch 150 mg medroxyPROG 2017-06- No [id number] 150mg Univers ESTERone 06-26-08 ity of (DEPO-PROVE 22:15: 21:14 [place] RA) 00 :00 Medical injection Branch 150 mg ibuprofen Yes 600mg Take 1 Unive rs 600 mg - tablet by ity of tablet 00:00: mouth [place] 00 every 6 Medical (six) Branch hours as needed for Pain (scale 1-3) or Pain (scale 4-6). ibuprofen 2019- No 600mg Take 1 Univ ers 600 mg -01-29 tablet by ity of tablet 00:00: 00:00 mouth [place] 00 :00 every 6 Medical (six) Branch hours as needed for Pain (scale 1-3) or Pain (scale 4-6). Immunizations Ordered Filled Immunization Date Status [facility] e Immunization Name Name HPV9 2020-06-27 Completed University of 00:00:00 [facility] 2020-06-27 Completed University of 00:00:00 [place] [facility] HPV9 2020-06-27 Completed University of 00:00:00 [facility]9 2020-06-27 Completed University of 00:00:00 [facility] 2020-06-27 Completed University of 00:00:00 [facility] HPV9 2020-06-27 Completed University of 00:00:00 [facility] 2020-06-27 Completed University of 00:00:00 [facility] HPV9 2020-06-27 Completed University of 00:00:00 [facility]9 2020-06-27 Completed University of 00:00:00 [facility] Tdap 2017-12-21 Completed University of 00:00:00 [facility] Tdap 2017-12-21 Completed University of 00:00:00 [facility] Tdap 2017-12-21 Completed University of 00:00:00 [facility] Tdap 2017-12-21 Completed University of 00:00:00 [facility] TDAP 2017-12-21 Completed University of 00:00:00 [facility] TDAP 2017-12-21 Completed University of 00:00:00 [facility] TDAP 2017-12-21 Completed University of 00:00:00 [facility] TDAP 2017-12-21 Completed University of 00:00:00 [facility] TDAP 2017-12-21 Completed University of 00:00:00 [facility] TDAP 2017-12-21 Completed University of 00:00:00 [facility] TDAP 2017-12-21 Completed University of 00:00:00 [facility] TDAP 2017-12-21 Completed University of 00:00:00 [facility] Branch TDAP 2017-12-21 Completed University of 00:00:00 [facility] TDAP 2017-12-21 Completed University of 00:00:00 [facility] Tdap 2017-12-21 Completed University of 00:00:00 [facility] Tdap 2017-12-21 Completed University of 00:00:00 [facility] Tdap 2016-07-09 Completed University of 00:00:00 [facility] Tdap 2016-07-09 Completed University of 00:00:00 [facility] Tdap 2016-07-09 Completed University of 00:00:00 [facility] Tdap 2016-07-09 Completed University of 00:00:00 [facility] TDAP 2016-07-09 Completed University of 00:00:00 [facility] TDAP 2016-07-09 Completed University of 00:00:00 [facility] TDAP 2016-07-09 Completed University of 00:00:00 [facility] TDAP 2016-07-09 Completed University of 00:00:00 [facility] TDAP 2016-07-09 Completed University of 00:00:00 [facility] TDAP 2016-07-09 Completed University of 00:00:00 [facility] TDAP 2016-07-09 Completed University of 00:00:00 [facility] TDAP 2016-07-09 Completed University of 00:00:00 [facility] TDAP 2016-07-09 Completed University of 00:00:00 [facility] TDAP 2016-07-09 Completed University of 00:00:00 [facility] Tdap 2016-07-09 Completed University of 00:00:00 [facility] Tdap 2016-07-09 Completed University of 00:00:00 [facility] Influenza Virus 2016-03-25 Completed Universit y of Vaccine Quad IM 3+ 00:00:00 [facility] Influenza Virus 2016-03-25 Completed Universit y of Vaccine Quad IM 3+ 00:00:00 [facility] Influenza Virus 2016-03-25 Completed Universit y of Vaccine [facility] IM 3+ 00:00:00 [facility] Influenza Virus 2016-03-25 Completed Universit y of Vaccine [facility] IM 3+ 00:00:00 [facility] Influenza Virus 2016-03-25 Completed Universit y of Vaccine [facility] IM 3+ 00:00:00 [facility] Influenza Virus 2016-03-25 Completed Universit y of Vaccine [facility] IM 3+ 00:00:00 [facility] Influenza Virus 2016-03-25 Completed Universit y of Vaccine [facility] IM 3+ 00:00:00 [facility] Influenza Virus 2016-03-25 Completed Universit y of Vaccine [facility] IM 3+ 00:00:00 [facility] Influenza Virus 2016-03-25 Completed Universit y of Vaccine [facility] IM 3+ 00:00:00 [facility] Influenza Virus 2016-03-25 Completed Universit y of Vaccine Quad IM 3+ 00:00:00 [facility] Influenza Virus 2016-03-25 Completed Universit y of Vaccine Quad IM 3+ 00:00:00 [facility] Influenza Virus 2016-03-25 Completed Universit y of Vaccine [facility] IM 3+ 00:00:00 [facility] Influenza Virus 2016-03-25 Completed Universit y of Vaccine [facility] IM 3+ 00:00:00 [facility] Influenza Virus 2016-03-25 Completed Universit y of Vaccine [facility] IM 3+ 00:00:00 [facility] Influenza Virus 2016-03-25 Completed Universit y of Vaccine [facility] IM 3+ 00:00:00 [facility] Influenza Virus 2016-03-25 Completed Universit y of Vaccine Quad IM 3+ 00:00:00 [facility] Vital Signs Vital Name Observation Time Observation Value Comments Source Systolic blood 2021-03-17 06:16:16 119 mm[Hg] Univer sity of pressure [facility] Diastolic blood 2021-03-17 06:16:16 78 mm[Hg] Unive rsity of [facility] Heart rate 2021-03-17 06:16:16 66 /min [facility] Respiratory rate 2021-03-17 06:16:16 18 /min [facility] Oxygen saturation in 2021-03-17 06:16:16 98 /min [facility] Arterial blood by [facility] Pulse oximetry [place] Body temperature 2021-03-17 03:36:00 37.17 Sandhya [facility] Body height 2021-03-17 03:36:00 170.2 cm [facility] Body weight 2021-03-17 03:36:00 101.379 kg [facility] BMI 2021-03-17 03:36:00 35.01 kg/m2 [facility] Systolic blood 2021-02-19 07:32:00 125 mm[Hg] Univer sity of pressure [facility] Diastolic blood 2021-02-19 07:32:00 83 mm[Hg] Unive rsity of pressure [facility] Heart rate 2021-02-19 07:32:00 75 /min [facility] Body temperature 2021-02-19 07:32:00 36.83 Sandhya Univ ersity of [facility] Respiratory rate 2021-02-19 07:32:00 22 /min Univ ersity of [facility] Body weight 2021-02-19 07:32:00 99.791 kg Universi ty of [place] [facility] BMI 2021-02-19 07:32:00 35.51 kg/m2 Universi ty of [facility] Oxygen saturation in 2021-02-19 07:32:00 100 /min University Arterial blood by [facility] Pulse oximetry Branch Systolic blood 2020-06-27 21:28:00 115 mm[Hg] Univer sity of pressure [facility] Diastolic blood 2020-06-27 21:28:00 71 mm[Hg] Unive rsity of pressure [facility] Heart rate 2020-06-27 21:28:00 73 /min Universi ty of [facility] Body temperature 2020-06-27 21:28:00 36.94 Sandhya Univ ersity of [facility] Respiratory rate 2020-06-27 21:28:00 16 /min Univ ersity of [facility] Body height 2020-06-27 21:28:00 167.6 cm Universi ty of [place] [facility] [place] Body weight 2020-06-27 21:28:00 99.565 kg Universi ty of [place] [facility] BMI 2020-06-27 21:28:00 35.43 kg/m2 Universi ty of [place] [facility] [place] Systolic blood 2020-06-27 21:28:00 115 mm[Hg] Univer sity of pressure [facility] Diastolic blood 2020-06-27 21:28:00 71 mm[Hg] Unive rsity of pressure [facility] Heart rate 2020-06-27 21:28:00 73 /min Universi ty of [place] [facility] [place] Body temperature 2020-06-27 21:28:00 36.94 Sandhya Univ ersity of [facility] Respiratory rate 2020-06-27 21:28:00 16 /min Univ ersity of [facility] Body height 2020-06-27 21:28:00 167.6 cm Universi ty of [facility] Body weight 2020-06-27 21:28:00 99.565 kg Universi ty of [place] [facility] BMI 2020-06-27 21:28:00 35.43 kg/m2 Universi ty of [place] [facility] Systolic blood 2020-03-28 05:38:00 113 mm[Hg] Univer sity of pressure [place] [facility] Diastolic blood 2020-03-28 05:38:00 84 mm[Hg] Unive rsity of pressure [place] [facility] Heart rate 2020-03-28 05:38:00 87 /min Universi ty of [place] [facility] Respiratory rate 2020-03-28 05:38:00 18 /min Univ ersity of [place] [facility] Oxygen saturation in 2020-03-28 05:38:00 100 /min University of Arterial blood by [place] [employer] [facility] Pulse oximetry Branch Body temperature 2020-03-28 00:14:00 37.5 Sandhya Univ ersity of [place] [facility] Body height 2020-03-28 00:14:00 167.6 cm Universi ty of [place] [facility] Body weight 2020-03-28 00:14:00 90.719 kg Universi ty of [place] [facility] BMI 2020-03-28 00:14:00 32.28 kg/m2 Universi ty of [place] [facility] Systolic blood 2019-12-05 08:44:00 105 mm[Hg] Univer sity of pressure [place] [facility] Diastolic blood 2019-12-05 08:44:00 76 mm[Hg] Unive rsity of pressure [place] [facility] Heart rate 2019-12-05 08:44:00 68 /min Universi ty of [place] [facility] Body temperature 2019-12-05 08:44:00 36.22 Sandhya Univ ersity of [place] [facility] Respiratory rate 2019-12-05 08:44:00 18 /min Univ ersity of [place] [facility] Oxygen saturation in 2019-12-05 08:44:00 100 /min University of Arterial blood by [place] [employer] Pulse oximetry Branch Body height 2019-12-05 06:33:00 167.6 cm Universi ty of [place] [facility] Body weight 2019-12-05 06:33:00 94.348 kg Universi ty of [place] [facility] BMI 2019-12-05 06:33:00 33.57 kg/m2 Universi ty of [place] [facility] Systolic blood 2019-11-16 04:00:00 122 mm[Hg] Univer sity of pressure [place] [facility] Diastolic blood 2019-11-16 04:00:00 78 mm[Hg] Unive rsity of pressure [place] [facility] Heart rate 2019-11-16 04:00:00 65 /min Universi ty of [place] [facility] Respiratory rate 2019-11-16 04:00:00 18 /min Univ ersity of [place] [facility] Oxygen saturation in 2019-11-16 04:00:00 99 /min University of Arterial blood by [facility] Pulse oximetry Branch Body temperature 2019-11-15 23:51:00 37.06 Sandhya Univ ersity of [place] [facility] Body height 2019-11-15 23:51:00 167.6 cm Universi ty of [place] [facility] Body weight 2019-11-15 23:51:00 94.348 kg Universi ty of [place] [facility] BMI 2019-11-15 23:51:00 33.57 kg/m2 Universi ty of [place] [facility] Systolic blood 2019-10-19 11:00:00 122 mm[Hg] Univer sity of pressure [place] [facility] Diastolic blood 2019-10-19 11:00:00 87 mm[Hg] Unive rsity of pressure [place] [facility] Heart rate 2019-10-19 11:00:00 79 /min Universi ty of [place] [facility] Respiratory rate 2019-10-19 11:00:00 21 /min Univ ersity of [place] [facility] Oxygen saturation in 2019-10-19 11:00:00 100 /min University of Arterial blood by [facility] Pulse oximetry Branch Body temperature 2019-10-19 09:39:00 36.83 Sandhya Univ ersity of [place] [facility] Body height 2019-10-19 09:39:00 167.6 cm Universi ty of [place] [facility] Body weight 2019-10-19 09:39:00 95.255 kg Universi ty of [place] [facility] BMI 2019-10-19 09:39:00 33.89 kg/m2 Universi ty of [place] [facility] Systolic blood 2019-08-31 10:00:00 119 mm[Hg] Univer sity of pressure [place] [facility] Diastolic blood 2019-08-31 10:00:00 68 mm[Hg] Unive rsity of pressure [place] [facility] Heart rate 2019-08-31 10:00:00 89 /min Universi ty of [place] [facility] Body temperature 2019-08-31 08:58:00 37.39 Sandhya Univ ersity of [place] [facility] Respiratory rate 2019-08-31 08:58:00 14 /min Univ ersity of [place] [facility] Body height 2019-08-31 08:58:00 167.6 cm Universi ty of [place] [facility] Body weight 2019-08-31 08:58:00 90.719 kg Universi ty of [place] [facility] BMI 2019-08-31 08:58:00 32.28 kg/m2 Universi ty of [facility] Oxygen saturation in 2019-08-31 08:58:00 97 /min University of Arterial blood by [facility] Pulse oximetry Branch Body temperature 2019-01-29 20:06:00 36.94 Sandhya Univ ersity of [facility] Respiratory rate 2019-01-29 20:06:00 18 /min [facility] Body height 2019-01-29 20:06:00 167.6 cm Universi ty of [place] [facility] [place] Body weight 2019-01-29 20:06:00 87 kg Universi ty of [place] [facility] [place] BMI 2019-01-29 20:06:00 30.96 kg/m2 Universi ty of [facility] Oxygen saturation in 2019-01-29 20:06:00 98 /min University of Arterial blood by [facility] Pulse oximetry Branch Systolic blood 2019-01-29 20:06:00 126 mm[Hg] Univer sity of pressure [facility] Diastolic blood 2019-01-29 20:06:00 78 mm[Hg] [facility] Heart rate 2019-01-29 20:06:00 75 /min Universi ty of [facility] Procedures Procedure Date / Time Performing Clinician Source Performed XR FOREARM 2 VW RIGHT 2021-03-17 04:50:31 Sam Kemp [facility] XR HAND 3+ VW RIGHT 2021-03-17 04:19:27 [facility] [place] [facility] CONSENT/REFUSAL FOR 2021-03-17 03:27:16 Doctor Unassigned, No [facility] [place] [facility]REAT[facility] Name [facility] NOTICE OF PRIVACY 2021-02-19 07:22:51 Doctor Unassigned, No [facility] PRACTICES [facility] CONSENT/REFUSAL FOR 2021-02-19 07:22:35 Doctor Unassigned, No Un iversity [facility] DIAGNOSIS AND TREATMENT [facility] POCT TEST 2020-06-27 22:14:00 Wilbert [facility]ough[facility] HIV 1/2 AG-AB WITH 2020-06-27 22:13:00 Wilbert Willoughby [facility] REFLEX [facility] GARDASIL 9 (HPV 9V) 2020-06-27 22:00:47 Wilbert Willoughby [facility] VACCINE [facility] CT ABDOMEN PELVIS WO 2020-03-28 03:42:05 Sam Kemp [facility] CONTRAST [facility] US GALL BLADDER 2020-03-28 03:06:[address] [facility] LIPASE 2020-03-28 01:18:[address] [facility] MAGNESIUM 2020-03-28 01:18:[address] [facility] COMP. METABOLIC PANEL 2020-03-28 01:18:00 Sam Kemp [facility] ([id number]) Medical Branch CBC WITH DIFF 2020-03-28 01:18:[address] [facility] URINALYSIS 2020-03-28 01:18:[address] [facility] COVID-19 (ID NOW RAPID 2020-03-28 01:18:00 Sam Kemp [facility] TESTING) Medical [place] POCT TEST 2020-03-28 01:17:00 Sam Kemp [facility] CONSENT/REFUSAL FOR 2020-03-28 00:05:35 Doctor Unassigned, No Un [facility] DIAGNOSIS AND TREATMENT Name Medical Branch US GALL BLADDER 2019-12-05 07:51:00 Radha Gr[address] [facility] COVID-19 (ID NOW RAPID 2019-12-05 07:03:00 Radha Grider [facility] TESTING) Medical Branch LIPASE 2019-12-05 06:37:00 Radha Gr[address] [facility] TEST, SERUM 2019-12-05 06:37:00 Radha Grider [facility] HEPATIC FUNCTION PANEL 2019-12-05 06:37:00 Radha Grider [facility] ([id number]) (ALB,T.PRO,BILI Medical Branch T,BU/BC,ALT,AST,ALK PHOS) BASIC METABOLIC PANEL 2019-12-05 06:37:00 Shruthi [facility] (NA, K, CL, CO2, Medical Branch GLUCOSE, BUN, CREATININE, CA) CBC WITH DIFFERENTIAL 2019-12-05 06:37:00 Shruthi [facility] URINALYSIS 2019-12-05 06:37:00 Shruthi [facility] NOTICE OF PRIVACY 2019-12-05 06:13:37 Doctor Unassigned, No [facility] PRACTICES Name [facility] CONSENT/REFUSAL FOR 2019-12-05 06:13:05 [facility] Name Medical Branch CT ABDOMEN PELVIS WO 2019-11-16 04:00:55 Sam Kemp [facility] CONTRAST [facility] POCT TEST 2019-11-16 03:26:00 Sam Kepm [facility] US GALL BLADDER 2019-11-16 02:38:56 Sam Kemp [facility] XR CHEST 1 VW 2019-11-16 01:09:53 Ian Greene [facility] PROTHROMBIN TIME / INR 2019-11-16 00:24:00 Ian Greene [facility] ACTIVATED PARTIAL 2019-11-16 00:24:00 Ian Greene [facility] THRMPLAS KEESHA [facility] Branch LIPASE 2019-11-16 00:21:00 Ian Greene [facility] TROPONIN I 2019-11-16 00:21:00 Ian Greene [facility] COMP. METABOLIC PANEL 2019-11-16 00:21:00 Ian Greene [facility] ([id number]) Medical Branch CBC WITH DIFFERENTIAL 2019-11-16 00:21:00 Ian Greene [facility] EKG-12 LEAD 2019-11-16 00:13:51 Ian Greene [facility] CONSENT/REFUSAL FOR 2019-11-15 23:43:02 Doctor Unassigned, No [facility]AT[facility] Name Medical Branch XR CHEST 1 VW 2019-10-19 10:55:14 Luisa Luna [facility] CORONAVIRUS COVID-19 2019-10-19 10:25:00 Luisa Luna [facility] TESTING [facility] POCT TEST 2019-10-19 10:18:00 Luisa Luna [facility] LIPASE 2019-10-19 10:17:00 Luisa Luna [facility] TROPONIN I 2019-10-19 10:17:00 Luisa Luna [facility] COMP. METABOLIC PANEL 2019-10-19 10:17:00 Luisa Luna [facility] ([id number]) [facility] CBC WITH DIFFERENTIAL 2019-10-19 10:17:00 Luisa Luna [facility] URINALYSIS 2019-10-19 10:17:00 Luisa Luna [facility] EKG-12 LEAD 2019-10-19 09:42:33 Luisa Luna [facility] XR CHEST 1 VW 2019-08-31 09:14[facility] RAPID STREP SCREEN FOR 2019-08-31 09:08:00 Jessica Bob [facility] GROUP A [facility] ADC,CLC OR LCC ONLY - 2019-08-31 09:08:00 Jessica Bob [facility] INFLUENZA A & B DIRECT Medical B ranch ANTIGEN NOTICE OF PRIVACY 2019-08-31 08:52:15 Doctor Unassigned, No [facility] PRACTICES Name Medical Branch CONSENT/REFUSAL FOR 2019-08-31 08:51:56 Doctor Unassigned, No [facility]NOSIS AND TREATMENT Name Medical Branch XR FOREARM 2 VW RIGHT 2019-01-29 20:53:12 Manan Arce [facility] XR HAND 3+ VW RIGHT 2019-01-29 20:53:12 Manan Arce [facility] ED ORTHOPEDIC INJURY 2019-01-29 19:59:18 Manan Arce [facility] TREATMENT - UPPER [facility] EXTREMITY NOTICE OF PRIVACY 2019-01-29 19:47:11 Doctor Unassigned, No [facility] PRACTICES Name [facility] CONSENT/REFUSAL FOR 2019-01-29 19:46:56 Doctor Unassigned, No [facility] DIAGNOSIS AND TREATMENT Name [facility] Encounters Start End Encounter Admission Attending Care Care Encounter Source Date/Time Date/Time Type Type Clinicians Facility Department ID 2021-04-[address] [facility] [id number] Univers 01:27:59 ity [facility] 2021-04-[address] [facility] [id number] Univers 19:32:10 ity of [facility] 2021-04-[address] [facility] [id number] [facility] 2021-03-21 Outpatient Alannah PILLAI [facility] [id number] 2Q-20 Univers 14:45:00 14:45:00 PETE [id number] saqiby o f [facility] 2021-03-21 2021-03-[address] 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 [id number] 2Q-20 Univers 14:45:00 14:45:00 JAMIE [id number] [facility] 2021-03-19 2021-03-[address] [facility] [id number] Univers 14:45:00 14:45:00 JAMIE maldonado [facility] 2021-03-18 2021-03-[address] [facility] [id number] 2Q-20 Univers 15:15:00 15:15:00 JAMIE [id number] [facility] 2021-03-18 2021-03-18 [facility] [id number] Univers 15:15:00 15:15:00 JAMIE ity of [facility] 2021-03-16 2021-03-17 Emergency Sam Kemp [facility] 1.2.840.114 [id number] Univers 22:39:00 01:20:00 Salina Aiken 350.1.13.10 i ty [place] 4.2.7.2.686 [facility] [id number] [place] [address] [place] 2021-02-20 2021-02-20 Telephone Demetrio Lara [facility] 1.2.840.114 [id number] Univers 00:00:00 00:00:00 FAUSTO 350.1.13.10 it y of [facility] 4.2.7.2.686 Rodney [phone] [facility] 019 Branch 2021-02-19 2021-02-19 [facility] [id number] Univers 02:37:00 03:44:00 Joanne Aiken 350.1.13.10 ity of [place] 4.2.7.2.686 [facility] [id number] [place] 830954 [place] 2020-09-10 2020-09-10 [facility] 1.2.840.114 [id number] 00:00:00 00:00:00 Outreach Juan PRIMARY 350.1.13.10 [place] CARE 4.2.7.2.686 PAVILLION [id number] 388 2020-09-10 2020-09-10 [facility] 1.2.840.114 [id number] Univers 00:00:00 00:00:00 Outreach Juan PRIMARY 350.1.13.10 i ty of [place] [id number] Ms dical 388 [place] 2020-08-27 2020-08-[address] [facility] [id number] Univers 10:30:00 10:30:00 [id number] ity [facility] 2020-08-27 2020-08-27 [facility] [id number] Univers 10:30:00 10:30:00 ROSSTEPHENNDA ity o f [facility] 2020-08-26 2020-08-[address] [facility] [id number] -[id number] Univers 13:30:00 13:30:00 [id number] ity [facility] 2020-08-26 2020-08-[address] [facility] [id number] Univers 13:30:00 13:30:00 ity [facility] 2020-07-11 2020-07-[address] [facility] [id number] -[id number] Univers 13:15:00 13:15:00 ROSNDA [id number] ity o [facility] 2020-07-11 2020-07-11 Outpatient R WILLOUGHBY, [facility] [id number] Univers 13:15:00 13:15:00 GRANTNDA ity o [facility] 2020-06-27 2020-06-27 Office [facility] 1.2.840.114 [id number] Univers 15:21:42 16:19:38 Visit Myrandaemile R TRACTOR TRAILER DRIVER 350.1.13.10 [facility] 4.2.7.2.686 Rodney as MATERNAL [id number] Med ical & CHILD [address] [place] [address] 2020-06-27 2020-06-27 Office [facility] 1.2.840.114 [id number] 15:21:42 16:19:38 [facility] R TRACTOR TRAILER DRIVER 350.1.13.10 [facility] 4.2.7.2.686 MATERNAL [id number] & CHILD 107 [facility] 2020-06-27 2020-06-27 Outpatient R WILLOUGHBY, [facility] [id number] -[id number] Univers 15:30:00 15:30:00 ROSHUNDA [id number] ity o [facility] 2020-06-27 2020-06-27 Outpatient R WILLOUGHBY, [facility] [id number] Univers 15:30:00 15:30:00 ROSSTEPHENNDA ity o [facility] 2020-06-05 2020-06-05 Outpatient WILLOUGHBY, [facility] [id number] -[id number] Univers 15:15:00 15:15:00 ROSSTEPHENNDA [id number] ity o f [facility] 2020-06-05 2020-06-[address] [facility] [id number] Univers 15:15:00 15:15:00 WILBERT ity o f [facility] 2020-03-27 2020-03-28 Emergency Sam Kemp [facility] 1.2.840.114 [id number] Univers 19:22:00 00:39:00 Salina Aiken 350.1.13.10 i ty of [place] 4.2.7.2.686 [facility] [id number] [address] 2019-12-05 2019-12-05 Emergency Shruthi [facility] [id number] Univers 01:22:11 03:48:00 Radha Aiken 350.1.13.10 ity of [place] 4.2.7.2.686 [facility] [id number] [address] 2019-12-05 2019-12-05 Emergency X [facility] ERT [id number] Univers 01:22:11 03:48:00 RADHA maldonado [facility] 2019-11-15 2019-11-16 Emergency Sam Kemp [facility] 1.2.840.114 [id number] Univers 19:21:57 00:00:00 Salina Aiken 350.1.13.10 i ty of [place] 4.2.7.2.686 [facility] [id number] [address] 2019-11-15 2019-11-16 Emergency X Sam KEMP [facility] ERT [id number] Univers 19:21:57 00:00:00 ity of [facility] 2019-10-19 2019-10-19 Emergency Anil [facility] 1.2.104.525 [id number] Univers 04:35:17 06:17:00 Luisa Aiken 350.1.13.10 i ty of [place] 4.2.7.2.686 [facility] [id number] [address] 2019-10-19 2019-10-19 Emergency X [facility] [id number] Univers 04:35:17 06:17:00 LUISA maldonado [facility] 2019-08-31 2019-08-31 Emergency [facility] [id number] Univers 03:53:07 05:03:00 Jsesica Aiken 350.1.13.10 i ty of [place] 4.2.7.2.686 [facility] [id number] [address] 2019-08-31 2019-08-31 Emergency X APULINO, [facility] ERT [id number] Univers 03:53:07 05:03:00 JESSICA maldonado [facility] 2019-06-09 2019-06-09 Emergency X BETO III, [facility] ERT [id number] Univers 16:17:18 19:21:00 MANAN maldonado [facility] 2019-01-29 2019-01-29 Emergency Beto [facility] [id number] Univers 15:09:14 18:22:00 Manan A[place] 350.1.13.10 i ty of [place] 4.2.7.2.686 [facility] [id number] [address] 2019-01-29 2019-01-29 Orders Doctor BRONWYN 1.2.840.114 [id number] Univers 00:00:00 00:00:00 Only Unassigned, FAUSTO 350.1.13.10 ity of [place] [facility] 4.2.7.2.686 [facility] [id number] [address] Results Test Description Test Time Test Comments Results Result Comments Source HIV 1/2 AG-AB WITH REFLEX 2020-06-28 07:10:00 Test Item Value Reference Range Interpretation Comme nts HIV Semi-quantitative (test code = Negative Negative 14259-0) MARCELINO (test code = MARCELINO) Non-reactive for HIV-1 antigen and HIV-1/HIV-2 antibodies. ?No laboratory evidence of HIV infection. ?Repeat in 2-4 weeks if acute HIV infection is suspected. [facility] AG-AB WITH [id number] 07:10:00 Test Item Value Reference Range Interpretation Comments HIV Negative Negative Semi-quantitative (test code = 52679-1) MARCELINO (test code = Non-reactive for HIV-1 MARCELINO) antigen and HIV-1/HIV-2 antibodies. ?No laboratory evidence of HIV infection. ?Repeat in 2-4 weeks if acute HIV infection is suspected. [facility] HospitalPODE [id number] 22:15:00 Test Item Value Reference Range Interpretation Comments POCT PREG (test code = 1605) Negative On board controls acceptable with C Yes Line (test code = 3574) POCT PREG LOT # (test code = 3575) POCT PREG TEST DATE (test code = 3576) [facility] HospitalPO[facility] [id number] 22:15:00 Test Item Value Reference Range Interpretation Comments POCT PREG (test code = 1605) Negative On board controls acceptable with C Yes Line (test code = 3574) POCT PREG LOT # (test code = 3575) POCT PREG TEST DATE (test code = 3576) [facility] ABDOMEN PELVIS WO [id number] 05:11:45 No acute intra-abdominal or pelvic findings. Cholelithiasis. Left ovarian cyst measuring 4.6 cm. Follow-up sonographic in 6 weeks. Preliminary Report Dictated by Resident: Elijah Solorzano MD., have reviewed this study and agree with theabove report.EXAM: CTABDOMEN AND PELVIS WITHOUT CONTRAST HISTORY: Abd pain, acute, generalized COMPARISON: CT of the abdomen dated 12/05/2019. TECHNIQUE AND FINDINGS: Contiguous axial imaging from the level of the lungbasesthrough the pubic symphysis was performed without the intravenousadministration of contrast. Coronaland sagittal reconstructions wereobtained. ?Auto mA and/or iterative reconstruction were used to reduceradiation dose. FINDINGS: LOWER THORAX: 2 to 3 mm subpleural solid nodule within the right lower lobe(2:11-12). LIVER: No focal hepatic lesions within limits of unenhanced technique.Normal liver conto ur. GALLBLADDER AND BILIARY TREE: Cholelithiasis. No biliary dilatation. SPLEEN: No splenomegaly. PANCREAS: No ductal dilation. ADRENAL GLANDS: No adrenal nodules. KIDNEYS: No hydronephrosis or nephrolithiasis. No contour deforming renallesion. PERITONEUM AND RETROPERITONEUM: No free air or fluid. A smallfat- containing umbilical hernia is seen. LYMPH NODES: No lymphadenopathy. GI TRACT: No dilation or abnormal wall thickening. Small sliding-typehiatal hernia. PELVIS/BLADDER: A 4.6 x 3.7 cm left ovarian cyst is seen posterior to theurinary bladder. Urinary bladder is normal for the degree of distention.The uterus is unremarkable. Right ovary is not well distinguished from theadjacent viscera. VESSELS: Unremarkable. BONES AND SOFT TISSUES: No suspicious lytic or sclerotic bony lesions. 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 [facility], Radiant Results Inft User - 03/28/2020 12:12 AM CDTEXAM: CT ABDOMEN AND PELVIS WITHOUT CONTRASTHISTORY: Abd pain, acute, generalizedCOMP ARISON: CT of the abdomen dated 12/05/2019.TECHNIQUE AND FINDINGS: Contiguous axial imaging from the level of the lungbases through the pubic symphysis was performed without the intravenousadministration of contrast. Coronal and sagittal reconstructions wereobtained. Auto mA and/or iterative reconstruction were used to reduceradiation dose.FINDINGS:LOWER THORAX: 2 to 3 mm subpleural solid nodule within the right lower lobe(2:11-12).LIVER: No focal hepatic lesions within limits of unenhanced technique.Normal liver contour.GALLBLADDER AND BILIARY TREE: Cholelithiasis. No biliary dilatation.SPLEEN: No splenomegaly.PANCREAS: No ductal dilation.ADRENAL GLANDS: No adrenal nodules.KIDNEYS: No hydronephrosis or nephrolithiasis. No contour deforming renallesion.PERITONEUM AND RETROPERITONEUM: No free air or fluid. A smallfat- containing umbilical hernia is seen.LYMPH NODES: No lymphadenopathy.GI TRACT: No dilation or abnormal wall thickening. Small sliding-typehiatal hernia.PELVIS/BLADDER: A 4.6 x 3.7 cmleft ovarian cyst is seen posterior to theurinary bladder. Urinary bladder is normal for the degree of distention.The uterus is unremarkable. Right ovary is not well distinguished from theadjacent viscera.VESSELS: Unremarkable.BONES AND SOFT TISSUES: No suspicious lytic or sclerotic bony lesions.Diastasis of rectus sheath with a small fat-containing umbilical hernia.IMPRESSIONNo acute intra-abdominalor pelvic findings.Cholelithiasis.Left ovarian cyst measuring 4.6 cm. Follow-up sonographic in 6 weeks.Preliminary Report Dictated by Resident: Elijah Dalton, MD., have reviewed this study and agree with theabove report.[facility] WITH DIFF 2020-03-28 02:09:00 Test Item Value Reference Range Interpretation Comments WBC (test code = See_Comment [Automated 6690-2) message] The sy stem which generated this result transmitted reference range : 4.30 - 11.10 10*3/?L. The reference range was not used to interpret this result as normal/abnormal . RBC (test code = See_Comment [Automated 789-8) message] The sy stem which generated this result transmitted reference range : 3.93 - 5.25 10*6/?L. The reference range was not used to interpret this result as normal/abnormal . HGB (test code = 12.7 g/dL 11.6-15 718-7) HCT (test code = 40.7 % 35.7-45.2 4544-3) MCV (test code = 89.3 fL 80.6-95.5 787-2) MCH (test code = 27.9 pg 25.9-32.8 785-6) MCHC (test code = 31.2 g/dL 31.6-35.1 L 786-4) RDW-SD (test code = 45.4 fL 39-49.9 27594-8) RDW-CV (test code = 14.1 % 12-15.5 788-0) PLT (test code = See_Comment [Automated 777-3) message] The sy stem which generated this result transmitted reference range : 166 - 358 10*3/ ?L. The reference r renee was not used to interpret this result as normal/abnormal . MPV (test code = 10.1 fL 9.5-12.9 01760-6) NRBC/100 WBC (test See_Comment [Automat ed code = 1445598110) message] The system which generated this result transmitted reference range : 0.0 - 10.0 /100 WBCs. The refer ence range was not u sed to interpret th is result as normal/abnormal . NRBC x10^3 (test code <0.01 See_Comment [Auto mated = 9047152951) message] The s ystem which generated this result transmitted reference range : 10*3/?L. The reference range was not used to interpret this result as normal/abnormal . GRAN MAT (NEUT) % 56.3 % (test code = 770-8) IMM GRAN % (test code 0.90 % = 8768806659) LYMPH % (test code = 31.9 % 736-9) MONO % (test code = 9.5 % 5905-5) EOS % (test code = 0.5 % 713-8) BASO % (test code = 0.9 % 706-2) GRAN MAT x10^3(ANC) 2.44 10*3/uL 1.88-7.09 (test code = 4875242599) IMM GRAN x10^3 (test 0.04 10*3/uL 0-0.06 code = 3652248925) LYMPH x10^3 (test code 1.38 10*3/uL 1.32-3.29 = 731-0) MONO x10^3 (test code 0.41 10*3/uL 0.33-0.92 = 742-7) EOS x10^3 (test code = <0.03 0.03-0.39 L 711-2) BASO x10^3 (test code 0.04 10*3/uL 0.01-0.07 = 704-7) BANDS (test code = Increased A 4810770372) REACT LYMPHS (test Rare code = 0152361192) Lab Interpretation Abnormal (test code = 23755-3) [facility] Hospital[facility]INALYSIS2020-10-08 02:04:00 Test Item Value Reference Range Interpretation Comments APPEARANCE (test code = Clear Clear 0174142736) COLOR (test code = Yellow Yellow 0081393223) PH (test code = 4.8-8.0 7368194450) SP GRAVITY (test code = 1.003-1.030 0080604128) GLU U QUAL (test code = Normal Normal 7865251440) BLOOD (test code = Negative Negative 3264433970) KETONES (test code = Negative Negative 4311109257) PROTEIN (test code = Negative Negative 2887-8) UROBILIN (test code = Normal Normal 6940572457) BILIRUBIN (test code = Negative Negative 6035572351) NITRITE (test code = Negative Negative 0733258464) LEUK GABBY (test code = Negative Negative 2167269196) RBC/HPF (test code = See_Comment [Autom ated message] 5958481936) The system Kwelia generated this result transmitted ref erence range: 0 - 3 HP F. The reference range was not used to int erpret this result as normal/abnormal . WBC/HPF (test code = See_Comment [Autom ated message] 1585141869) The system Kwelia generated this result transmitted ref erence range: 0 - 5 HP F. The reference range was not used to int erpret this result as normal/abnormal . BACTERIA (test code = Few Negative A 9696614159) MUCOUS (test code = Slight Negative LPF A 0993169789) SQ EPITH (test code = HPF 3847956931) Lab Interpretation (test Abnormal code = 57029-5) [facility] HospitalCOVID[facility] (ID NOW RAPID TESTING)2020-03-28 01:54:00 Test Item Value Reference Range Interpretation Comments SARS-CoV-2 Rapid ID NOW Not Detected Not Detected (test code = 60871-9) MARCELINO (test code = MARCELINO) ID NOW COVID-19 Assay is an isothermal nucleic acid amplification test intended for the qualitative detection of nucleic acid from SARS-CoV-2 viral RNA in nasopharyngeal (HOURLY SHIFT MANAGER) specimens. It is used under Emergency Use Authorization (EUA) by FDA. The limit of detection (LOD) of the assay is 125 Genome Equivalents/mL. A positive result is indicative of the presence of SARS-CoV-2 RNA. ?Clinical correlation with patient history and other diagnostic [...] for repeat patient testing if clinically indicated. Lab Interpretation Normal (test code = 44045-0) [facility]. METABOLIC PANEL (89557)2020-03-28 01:44:00 Test Item Value Reference Range Interpretation Comments NA (test code = 136 mmol/L 135-145 3838614541) K (test code = 3.9 mmol/L 3.5-5 2290587642) CL (test code = 97 mmol/L 98-108 L 8737846951) CO2 TOTAL (test code = 30 mmol/L 23-31 4751321014) AGAP (test code = 2-16 1875047439) BUN (test code = 7 mg/dL 7-23 2782932588) GLUCOSE (test code = 92 mg/dL 70-110 3162356008) CREATININE (test code = 0.63 mg/dL 0.5-1.04 8334273105) TOTAL BILI (test code = 0.5 mg/dL 0.1-1.6 4799405998) CALCIUM (test code = 9.6 mg/dL 8.6-10.6 0582465097) T PROTEIN (test code = 8.3 g/dL 6.3-8.2 H 6908424811) ALBUMIN (test code = 4.4 g/dL 3.5-5 1062763641) ALK PHOS (test code = 113 U/L 34-122 9874796744) ALTv (test code = 75 U/L 5-35 H 1742-6) AST(SGOT) (test code = 52 U/L 13-40 H 2902917890) eGFR Calculation mL/min/1.73m2 (Non-) (test code = 8619120971) eGFR Calculation mL/min/1.73m2 () (test code = 9186867502) MARCELINO (test code = MARCELINO) Association of Glomerular Filtration Rate (GFR) and Staging of Kidney Disease* + --+ --+ ------+| GFR (mL/min/1.73 m2) ?| With Kidney Damage ?| ?Without Kidney Damage+ --------+ --------+ +| ?>90 ?| ?Stage one ?| ? Normal ?+ ---+ ---+ -------+| ?60-89 ?| ?Stage two ?| ? Decreased GFR ? + --+ --+ ------+| ?30-59 ?| ?Stage three ?| ? Stage three ? + --+ --+ ------+| ?15-29 ?| ?Stage four ? | ? Stage four ?+ ---+ ---+ -------+| ?<15 (or dialysis) ? ?| ?Stage five ? | ? Stage five ?+ ---+ ---+ -------+ *Each stage assumes the associated GFR level has been in effect for at least three months. ?Stages 1 to 5, with or without kidney disease, indicate chronic kidney disease. Notes: Determination of stages one and two (with eGFR >59mL/min/1.73 m2) requires estimation of kidney damage for at least three months as defined by structural or functional abnormalities of the kidney, manifested by either:Pathological abnormalities or Markers of kidney damage (including abnormalities in the composition of the blood or urine or abnormalities in imaging tests). Lab Interpretation Abnormal (test code = 03327-0) [facility] Hospital[facility]2020-10-08 01:44:00 Test Item Value Reference Range Interpretation Comments LIPASE (test code = 8073037999) 88 U/L 0-220 Lab Interpretation (test code = Normal 54282-1) [facility]UM2020-10-08 01:44:00 Test Item Value Reference Range Interpretation Comments MAGNESIUM (test code = 6356042124) 2.1 mg/dL 1.7-2.4 Lab Interpretation (test code = Normal 66173-4) [facility] HospitalPO[facility] [id number] 01:17:00 Test Item Value Reference Range Interpretation Comments POCT PREG (test code = 1605) Negative On board controls acceptable with Present C Line (test code = 3574) POCT PREG LOT # (test code = 3575) [id number] POCT PREG TEST DATE (test 02/18/2021 code = 3576) Lab Interpretation (test code = Normal 28724-2) [facility] (ID NOW RAPID TESTING)2019-12-05 07:32:00 Test Item Value Reference Range Interpretation Comments SARS-CoV-2 Rapid ID NOW Not Detected Not Detected (test code = 43630-4) MARCELINO (test code = MARCELINO) ID NOW COVID-19 Assay is an isothermal nucleic acid amplification test intended for the qualitative detection of nucleic acid from SARS-CoV-2 viral RNA in nasopharyngeal (HOURLY SHIFT MANAGER) specimens. It is used under Emergency Use Authorization (EUA) by FDA. The limit of detection (LOD) of the assay is 125 Genome Equivalents/mL. A positive result is indicative of the presence of SARS-CoV-2 RNA. ?Clinical correlation with patient history and other diagnostic [...] for repeat patient testing if clinically indicated. Lab Interpretation Normal (test code = 68025-4) [facility] Metabolic Panel (NA, K, CL, CO2, GLUCOSE, BUN, CREATININE, CA)2019-12-05 07:04:00 Test Item Value Reference Range Interpretation Comments NA (test code = 140 mmol/L 135-145 2070930834) K (test code = 3.9 mmol/L 3.5-5 7280077394) CL (test code = 102 mmol/L 98-108 1276767367) CO2 TOTAL (test code = 30 mmol/L 23-31 7340822776) AGAP (test code = 2-16 8917999826) BUN (test code = 10 mg/dL 7-23 1511804475) GLUCOSE (test code = 91 mg/dL 70-110 9251659323) CREATININE (test code 0.67 mg/dL 0.5-1.04 = 3307169485) CALCIUM (test code = 9.7 mg/dL 8.6-10.6 4302135701) eGFR Calculation mL/min/1.73m2 (Non-) (test code = 8058625204) eGFR Calculation mL/min/1.73m2 () (test code = 5379142054) MARCELINO (test code = MARCELINO) Association of Glomerular Filtration Rate (GFR) and Staging of Kidney Disease* + -+ + ---+| GFR (mL/min/1.73 m2) ?| With Kidney Damage ?| ?Without Kidney Damage+ -------+ ------+ ---------+| ?>90 ?| ?Stage one ?| ? Normal ?+ --+ -+ ----+| ?60-89 ?| ?Stage two ?| ? Decreased GFR ? + -+ + ---+| ?30-59 ?| ?Stage three ?| ? Stage three ? + -+ + ---+| ?15-29 ?| ?Stage four ? | ? Stage four ?+ --+ -+ ----+| ?<15 (or dialysis) ? ?| ?Stage five ? | ? Stage five ?+ --+ -+ ----+ *Each stage assumes the associated GFR level has been in effect for at least three months. ?Stages 1 to 5, with or without kidney disease, indicate chronic kidney disease. Notes: Determination of stages one and two (with eGFR >59mL/min/1.73 m2) requires estimation of kidney damage for at least three months as defined by structural or functional abnormalities of the kidney, manifested by either:Pathological abnormalities or Markers of kidney damage (including abnormalities in the composition of the blood or urine or abnormalities in imaging tests). [facility] HospitalHepatic Function Panel (ALB, T.PRO, BILI T, BU/BC, ALT, AST, ALK PHOS)2019-12-05 07:04:00 Test Item Value Reference Range Interpretation Comments TOTAL BILI (test code = 5704954679) 0.3 mg/dL 0.1-1.1 BILI UNCON (test code = 3946146250) 0.4 mg/dL 0.1-1.1 BILI CONJ (test code = 6731479978) 0.0 mg/dL 0-0.3 T PROTEIN (test code = 6971956295) 8.7 g/dL 6.3-8.2 H ALBUMIN (test code = 7388318371) 4.8 g/dL 3.5-5 ALK PHOS (test code = 3620499528) 110 U/L 34-122 ALTv (test code = 1742-6) 20 U/L 5-35 AST(SGOT) (test code = 6726643533) 24 U/L 13-40 Lab Interpretation (test code = Abnormal 23414-7) [facility] HospitalLipase [id number] 07:04:00 Test Item Value Reference Range Interpretation Comments LIPASE (test code = 4165575352) 117 U/L 0-220 Lab Interpretation (test code = Normal 95048-1) [facility] HospitalPregnancy Test, [id number] 07:00:00 Test Item Value Reference Range Interpretation Comments PREG SERUM (test code Negative = 0237452273) MARCELINO (test code = MARCELINO) Less than 10 IU/L. ?If low titer or ectopic is suspected, resubmit specimen in 48-72 hours. [facility] HospitalUrinalysis2020-06-16 06:55:00 Test Item Value Reference Range Interpretation Comments APPEARANCE (test code = Clear Clear 2956092874) COLOR (test code = Straw Yellow A 4193499573) PH (test code = 4.8-8.0 1838416399) SP GRAVITY (test code = 1.003-1.030 9495150563) GLU U QUAL (test code = Normal Normal 1457694797) BLOOD (test code = Negative Negative 4607636452) KETONES (test code = Negative Negative 6368279366) PROTEIN (test code = Negative Negative 2887-8) UROBILIN (test code = Normal Normal 6406045908) BILIRUBIN (test code = Negative Negative 6010903320) NITRITE (test code = Negative Negative 3273790538) LEUK GABBY (test code = Negative Negative 7585793357) RBC/HPF (test code = See_Comment [Autom ated message] 5721137368) The system Kwelia generated this result transmitted ref erence range: 0 - 3 HP F. The reference range was not used to int erpret this result as normal/abnormal . WBC/HPF (test code = See_Comment [Autom ated message] 1965411748) The system [employer] generated this result transmitted ref erence range: 0 - 5 HP F. The reference range was not used to int erpret this result as normal/abnormal . BACTERIA (test code = Negative Negative 3381305284) MUCOUS (test code = Slight Negative LPF A 2724374926) SQ EPITH (test code = HPF 4641892431) Lab Interpretation (test Abnormal code = 98108-9) [facility] [id number] 06:47:00 Test Item Value Reference Range Interpretation Comments WBC (test code = See_Comment [Automated 2911-2) message] The sy stem which generated this result transmitted reference range : 4.30 - 11.10 10*3/?L. The reference range was not used to interpret this result as normal/abnormal . RBC (test code = See_Comment [Automated 809-8) message] The sy stem which generated this result transmitted reference range : 3.93 - 5.25 10*6/?L. The reference range was not used to interpret this result as normal/abnormal . HGB (test code = 12.9 g/dL 11.6-15 718-7) HCT (test code = 40.6 % 35.7-45.2 4544-3) MCV (test code = 90.4 fL 80.6-95.5 787-2) MCH (test code = 28.7 pg 25.9-32.8 785-6) MCHC (test code = 31.8 g/dL 31.6-35.1 786-4) RDW-SD (test code = 42.7 fL 39-49.9 33144-7) RDW-CV (test code = 13.0 % 12-15.5 788-0) PLT (test code = See_Comment H [Automated 777-3) message] The sy stem which generated this result transmitted reference range : 166 - 358 10*3/ ?L. The reference r renee was not used to interpret this result as normal/abnormal . MPV (test code = 10.0 fL 9.5-12.9 03446-2) NRBC/100 WBC (test See_Comment [Automat ed code = 4997476585) message] The system which generated this result transmitted reference range : 0.0 - 10.0 /100 WBCs. The refer ence range was not u sed to interpret th is result as normal/abnormal . NRBC x10^3 (test code <0.01 See_Comment [Auto mated = 7571802452) message] The s ystem which generated this result transmitted reference range : 10*3/?L. The reference range was not used to interpret this result as normal/abnormal . GRAN MAT (NEUT) % 65.1 % (test code = 770-8) IMM GRAN % (test code 0.30 % = 9004500109) LYMPH % (test code = 22.5 % 736-9) MONO % (test code = 8.2 % 5905-5) EOS % (test code = 3.4 % 713-8) BASO % (test code = 0.5 % 706-2) GRAN MAT x10^3(ANC) 5.71 10*3/uL 1.88-7.09 (test code = 9842145282) IMM GRAN x10^3 (test 0.03 10*3/uL 0-0.06 code = 1850727090) LYMPH x10^3 (test code 1.97 10*3/uL 1.32-3.29 = 731-0) MONO x10^3 (test code 0.72 10*3/uL 0.33-0.92 = 742-7) EOS x10^3 (test code = 0.30 10*3/uL 0.03-0.39 711-2) BASO x10^3 (test code 0.04 10*3/uL 0.01-0.07 = 704-7) Lab Interpretation Abnormal (test code = 59134-1) [facility] [id number] 03:26:00 Test Item Value Reference Range Interpretation Comments POCT PREG (test code = 1605) Negative On board controls acceptable with Present C Line (test code = 3574) POCT PREG LOT # (test code = 3575) [id number] POCT PREG TEST DATE (test 01/18/2021 code = 3576) Lab Interpretation (test code = Normal 06294-7) [facility] GALL [id number] 02:48:50 Gallbladder hydrops and cholelithiasis without sonographic findings tosuggest acute cholecystitis.Preliminary Report Dictated by Resident: Cipriano Cardenas MD., have reviewed this study and agree withthe above report.GALLBLADDER ULTRASOUND HISTORY: RUQ pain TECHNIQUE:Survey ultrasound imaging of the right gallbladder wasperformed. Color Doppler evaluation of the main portal vein withrepresentative images were included. COMPARISON: None. FINDINGS: LIVER: The partially imaged liver demonstrates a normal echotexture. Nofocal hepatic lesion is identified within the limited study. Nointrahepatic biliary ductal dilation is noted. Normal hepatopetal ?flowwithin the main portal vein. GALLBLADDER: The gallbladder is hydropic. A echogenic structure withposterior shadowing is noted in the gallbladder body and just proximal tothe neck, largest at this level, measuring 2.5 cm. No pericholecysticfluid, or gallbladder wall thickening. Positive sonographic Lynn's signdocumented. The common bile duct measures 0.4 cm. PANCREAS: The visualized portions of the pancreas are normal. [facility], Radiant Results Inft User - 11/15/2019 9:50 PM CDTGALLBLADDER ULTRASOUND HISTORY: RUQ pain TECHNIQUE: Survey ultrasound imaging of the right gallbladder wasperformed. Color Doppler evaluation of the main portal vein withrepresentative images were included. COMPARISON: None. FINDINGS: LIVER: The partially imaged liver demonstrates a normal echotexture. Nofocal hepatic lesion is identified within the limited study. Nointrahepatic biliary ductal dilation is noted. Normal hepatopetal flowwithin the main portal vein. GALLBLADDER: The gallbladder is hydropic. A echogenic structure withposterior shadowing is noted in the gallbladder body and just proximal tothe neck, largest at this level, measuring 2.5 cm. No pericholecysticfluid, or gallbladder wall thickening. Positive sonographic Lynn's signdocumented. The common bile duct measures 0.4 cm.PANCREAS: The visualized portions of the pancreas are normal.IMPRESSION Gallbladder hydrops and cholelithiasis without sonographic findings tosuggest acute cholecystitis.Preliminary Report Dictated by Resident: Cipriaon Khan MD., have reviewed this study and agree withthe above report.[facility] HospitalTRRALPH [facility] J[facility] MED[facility] CENTERFREDDIE I 2019-11-16 01:18:00 Test Item Value Reference Range Interpretation Comments TROPONIN I (test <0.012 See_Comment [Automated code = 8226972249) message] The system which generated this result transmitted reference range : <=0.034 ng/mL. The reference range was not used to interpr et this result as normal/abnormal . MARCELINO (test code = Equal or Less than MARCELINO) 0.034 ng/ml---Normal ?Note: Cardiac troponin begins to rise 3-4 hours after the onset of ischemia. Repeat in 4-6 hours if the sample was drawn within 3-4 hours of the onset of the symptom and found normal. Between 0.035 and 0.120 ng/mL--- Borderline. Questionable myocardial injury or necrosis ? ?Note: Serial measurement may be necessary to confirm or exclude the diagnosis of myocardial injury or necrosis; Clinical correlation (symptoms, EKGs, imaging studies, and others) required; Repeat in 4-6 hours if clinically indicated. ? Equal or Higher than 0.121 ng/mL---Abnormal. Myocardial Injury or Necrosis Likely ? Biotin has been reported to cause a negative bias, interpret results relative to patient's use of biotin. ? Lab Interpretation Normal (test code = 68214-2) [facility]. METABOLIC PANEL ([id number])2019-11-16 01:07:00 Test Item Value Reference Range Interpretation Comments NA (test code = 140 mmol/L 135-145 6406889393) K (test code = 4.2 mmol/L 3.5-5 9185202024) CL (test code = 101 mmol/L 98-108 9061646969) CO2 TOTAL (test code = 29 mmol/L 23-31 5704476264) AGAP (test code = 2-16 2630750464) BUN (test code = 11 mg/dL 7-23 6845697332) GLUCOSE (test code = 101 mg/dL 70-110 8771781588) CREATININE (test code 0.50 mg/dL 0.5-1.04 = 7304915185) TOTAL BILI (test code 0.1 mg/dL 0.1-1.1 = 2005985072) CALCIUM (test code = 9.4 mg/dL 8.6-10.6 6059271705) T PROTEIN (test code = 7.8 g/dL 6.3-8.2 6777488510) ALBUMIN (test code = 4.4 g/dL 3.5-5 4822780332) ALK PHOS (test code = 88 U/L 34-122 8145201971) ALTv (test code = 25 U/L 5-35 1742-6) AST(SGOT) (test code = 25 U/L 13-40 6467910088) eGFR Calculation mL/min/1.73m2 (Non-) (test code = 1660628168) eGFR Calculation mL/min/1.73m2 () (test code = 6823074247) MARCELINO (test code = MARCELINO) Association of Glomerular Filtration Rate (GFR) and Staging of Kidney Disease* + -+ + ---+| GFR (mL/min/1.73 m2) ?| With Kidney Damage ?| ?Without Kidney Damage+ -------+ ------+ ---------+| ?>90 ?| ?Stage one ?| ? Normal ?+ --+ -+ ----+| ?60-89 ?| ?Stage two ?| ? Decreased GFR ? + -+ + ---+| ?30-59 ?| ?Stage three ?| ? Stage three ? + -+ + ---+| ?15-29 ?| ?Stage four ? | ? Stage four ?+ --+ -+ ----+| ?<15 (or dialysis) ? ?| ?Stage five ? | ? Stage five ?+ --+ -+ ----+ *Each stage assumes the associated GFR level has been in effect for at least three months. ?Stages 1 to 5, with or without kidney disease, indicate chronic kidney disease. Notes: Determination of stages one and two (with eGFR >59mL/min/1.73 m2) requires estimation of kidney damage for at least three months as defined by structural or functional abnormalities of the kidney, manifested by either:Pathological abnormalities or Markers of kidney damage (including abnormalities in the composition of the blood or urine or abnormalities in imaging tests). [facility] HospitalLIPASE, [id number] 01:07:00 Test Item Value Reference Range Interpretation Comments LIPASE (test code = 1270127145) 109 U/L 0-220 Lab Interpretation (test code = Normal 48234-6) [facility] HospitalPROTHROMBIN TIME / [id number] 01:07:00 Test Item Value Reference Range Interpretation Comments PROTIME PATIENT (test See_Comment L [Auto mated message] code = 5964-2) The system [employer] generated this result transmitted ref erence range: 12.0 - 1 4.7 Seconds. The reference range was not used to int erpret this result as normal/abnormal . INR (test code = 6301-6) Nor mal INR <1.1; Warfarin Therap eutic range 2.0 to 3. 0 or 2.5 to 3.5, dep ending upon the indica tions. Lab Interpretation (test Abnormal code = 55633-4) [facility] HospitalaPTT2020-05-28 01:05:00 Test Item Value Reference Range Interpretation Comments APTT Patient (test See_Comment [Automat ed code = 3173-2) message] The system which generated this result transmitted reference range : 23 - 38 Seconds . The reference range was not used to interpr et this result as normal/abnormal . MARCELINO (test code = MARCELINO) The [facility] patient population mean normal value for aPTT is 30 seconds. Lab Interpretation Normal (test code = 81901-4) [facility] WITH [id number] 00:48:00 Test Item Value Reference Range Interpretation Comments WBC (test code = See_Comment [Automated 6690-2) message] The sy stem which generated this result transmitted reference range : 4.30 - 11.10 10*3/?L. The reference range was not used to interpret this result as normal/abnormal . RBC (test code = See_Comment [Automated 789-8) message] The sy stem which generated this result transmitted reference range : 3.93 - 5.25 10*6/?L. The reference range was not used to interpret this result as normal/abnormal . HGB (test code = 12.2 g/dL 11.6-15 718-7) HCT (test code = 38.8 % 35.7-45.2 4544-3) MCV (test code = 91.9 fL 80.6-95.5 787-2) MCH (test code = 28.9 pg 25.9-32.8 785-6) MCHC (test code = 31.4 g/dL 31.6-35.1 L 786-4) RDW-SD (test code = 43.6 fL 39-49.9 72032-5) RDW-CV (test code = 13.1 % 12-15.5 788-0) PLT (test code = See_Comment H [Automated 777-3) message] The sy stem which generated this result transmitted reference range : 166 - 358 10*3/ ?L. The reference r renee was not used to interpret this result as normal/abnormal . MPV (test code = 10.4 fL 9.5-12.9 25371-5) NRBC/100 WBC (test See_Comment [Automat ed code = 6774242672) message] The system which generated this result transmitted reference range : 0.0 - 10.0 /100 WBCs. The refer ence range was not u sed to interpret th is result as normal/abnormal . NRBC x10^3 (test code <0.01 See_Comment [Auto mated = 6195766187) message] The s ystem which generated this result transmitted reference range : 10*3/?L. The reference range was not used to interpret this result as normal/abnormal . GRAN MAT (NEUT) % 62.6 % (test code = 770-8) IMM GRAN % (test code 0.60 % = 5236904879) LYMPH % (test code = 24.0 % 736-9) MONO % (test code = 8.1 % 5905-5) EOS % (test code = 4.1 % 713-8) BASO % (test code = 0.6 % 706-2) GRAN MAT x10^3(ANC) 4.86 10*3/uL 1.88-7.09 (test code = 5362579962) IMM GRAN x10^3 (test 0.05 10*3/uL 0-0.06 code = 9937181609) LYMPH x10^3 (test code 1.87 10*3/uL 1.32-3.29 = 731-0) MONO x10^3 (test code 0.63 10*3/uL 0.33-0.92 = 742-7) EOS x10^3 (test code = 0.32 10*3/uL 0.03-0.39 711-2) BASO x10^3 (test code 0.05 10*3/uL 0.01-0.07 = 704-7) Lab Interpretation Abnormal (test code = 01906-6) [facility] [id number] 11:05:00 Test Item Value Reference Range Interpretation Comments TROPONIN I (test <0.012 See_Comment [Automated code = 5909922721) message] The system which generated this result transmitted reference range : <=0.034 ng/mL. The reference range was not used to interpr et this result as normal/abnormal . MARCELINO (test code = Equal or Less than MARCELINO) 0.034 ng/ml---Normal ?Note: Cardiac troponin begins to rise 3-4 hours after the onset of ischemia. Repeat in 4-6 hours if the sample was drawn within 3-4 hours of the onset of the symptom and found normal. Between 0.035 and 0.120 ng/mL--- Borderline. Questionable myocardial injury or necrosis ? ?Note: Serial measurement may be necessary to confirm or exclude the diagnosis of myocardial injury or necrosis; Clinical correlation (symptoms, EKGs, imaging studies, and others) required; Repeat in 4-6 hours if clinically indicated. ? Equal or Higher than 0.121 ng/mL---Abnormal. Myocardial Injury or Necrosis Likely ? Biotin has been reported to cause a negative bias, interpret results relative to patient's use of biotin. ? Lab Interpretation Normal (test code = 09489-7) [facility] HospitalCORONAVIRUS COVID-19 [id number] 11:04:00 Test Item Value Reference Range Interpretation Comments SARS-CoV-2 (test code = Not Detected Not Detected 12221-1) MARCELINO (test code = MARCELINO) ID NOW COVID-19 Assay is an isothermal nucleic acid amplification test intended for the qualitative detection of nucleic acid from SARS-CoV-2 viral RNA in nasopharyngeal ([employer]) specimens. It is used under Emergency Use Authorization (EUA) by FDA. The limit of detection (LOD) of the assay is 125 Genome Equivalents/mL. A positive result is indicative of the presence of SARS-CoV-2 RNA. ?Clinical correlation with patient history and other diagnostic information is necessary to determine patient infection status. A negative (Not Detected) result does not preclude SARS-CoV-2 infection. Clinical correlation with patient history and other diagnostic information should be used in patient management decisions. Invalid: Please collect a new specimen for repeat patient testing if clinically indicated. Lab Interpretation Normal (test code = 83109-2) [facility] WITH [id number] 10:59:00 Test Item Value Reference Range Interpretation Comments WBC (test code = See_Comment [Automated 6690-2) message] The sy stem which generated this result transmitted reference range : 4.30 - 11.10 10*3/?L. The reference range was not used to interpret this result as normal/abnormal . RBC (test code = See_Comment [Automated 789-8) message] The sy stem which generated this result transmitted reference range : 3.93 - 5.25 10*6/?L. The reference range was not used to interpret this result as normal/abnormal . HGB (test code = 12.0 g/dL 11.6-15 718-7) HCT (test code = 38.5 % 35.7-45.2 4544-3) MCV (test code = 91.4 fL 80.6-95.5 787-2) MCH (test code = 28.5 pg 25.9-32.8 785-6) MCHC (test code = 31.2 g/dL 31.6-35.1 L 786-4) RDW-SD (test code = 44.3 fL 39-49.9 19114-8) RDW-CV (test code = 13.2 % 12-15.5 788-0) PLT (test code = See_Comment [Automated 777-3) message] The sy stem which generated this result transmitted reference range : 166 - 358 10*3/ ?L. The reference r renee was not used to interpret this result as normal/abnormal . MPV (test code = 10.6 fL 9.5-12.9 99283-9) NRBC/100 WBC (test See_Comment [Automat ed code = 0898706536) message] The system which generated this result transmitted reference range : 0.0 - 10.0 /100 WBCs. The refer ence range was not u sed to interpret th is result as normal/abnormal . NRBC x10^3 (test code <0.01 See_Comment [Auto mated = 0598311163) message] The s ystem which generated this result transmitted reference range : 10*3/?L. The reference range was not used to interpret this result as normal/abnormal . GRAN MAT (NEUT) % 68.9 % (test code = 770-8) IMM GRAN % (test code 0.30 % = 6798405894) LYMPH % (test code = 21.3 % 736-9) MONO % (test code = 6.4 % 5905-5) EOS % (test code = 2.5 % 713-8) BASO % (test code = 0.6 % 706-2) GRAN MAT x10^3(ANC) 6.96 10*3/uL 1.88-7.09 (test code = 7564510028) IMM GRAN x10^3 (test 0.03 10*3/uL 0-0.06 code = 0729373210) LYMPH x10^3 (test code 2.15 10*3/uL 1.32-3.29 = 731-0) MONO x10^3 (test code 0.65 10*3/uL 0.33-0.92 = 742-7) EOS x10^3 (test code = 0.25 10*3/uL 0.03-0.39 711-2) BASO x10^3 (test code 0.06 10*3/uL 0.01-0.07 = 704-7) Lab Interpretation Abnormal (test code = 53816-2) [facility] HospitalURINALYSIS2020-[facility]-30 10:58:00 Test Item Value Reference Range Interpretation Comments APPEARANCE (test code = Hazy Clear A 9124495314) COLOR (test code = Yellow Yellow 2795336703) PH (test code = 4.8-8.0 7914111730) SP GRAVITY (test code = 1.003-1.030 2377507534) GLU U QUAL (test code = Normal Normal 5767257808) BLOOD (test code = Negative Negative 2678221993) KETONES (test code = Negative Negative 1471025344) PROTEIN (test code = Negative Negative 2887-8) UROBILIN (test code = Normal Normal 1340467843) BILIRUBIN (test code = Negative Negative 0142106837) NITRITE (test code = Negative Negative 7327989270) LEUK GABBY (test code = Negative Negative 0723140300) RBC/HPF (test code = See_Comment H [Autom ated message] 4621315691) The system [employer] generated this result transmitted ref erence range: 0 - 3 HP F. The reference range was not used to int erpret this result as normal/abnormal . WBC/HPF (test code = See_Comment [Autom ated message] 5019191614) The system [employer] generated this result transmitted ref erence range: 0 - 5 HP F. The reference range was not used to int erpret this result as normal/abnormal . BACTERIA (test code = Negative Negative 9401380822) MUCOUS (test code = Moderate Negative LPF A 6414697555) SQ EPITH (test code = HPF 0227533499) YEAST BUD (test code = <1 See_Comment [Aut omated message] 0800995413) The system [employer] generated this result transmitted ref erence range: <=1 HPF. The reference range was not used to int erpret this result as normal/abnormal . Lab Interpretation (test Abnormal code = 17305-6) [facility]. METABOLIC PANEL ([id number])2019-10-19 10:54:00 Test Item Value Reference Range Interpretation Comments NA (test code = 139 mmol/L 135-145 4151825407) K (test code = 3.8 mmol/L 3.5-5 2806605122) CL (test code = 103 mmol/L 98-108 4225084598) CO2 TOTAL (test code = 30 mmol/L 23-31 7666279022) AGAP (test code = 2-16 1064438758) BUN (test code = 14 mg/dL 7-23 0106191532) GLUCOSE (test code = 101 mg/dL 70-110 9759593949) CREATININE (test code 0.59 mg/dL 0.5-1.04 = 0575993431) TOTAL BILI (test code 0.2 mg/dL 0.1-1.1 = 1435783831) CALCIUM (test code = 9.7 mg/dL 8.6-10.6 0875536941) T PROTEIN (test code = 7.7 g/dL 6.3-8.2 3069597153) ALBUMIN (test code = 4.4 g/dL 3.5-5 8632894147) ALK PHOS (test code = 97 U/L 34-122 2668893997) ALTv (test code = 18 U/L 5-35 1742-6) AST(SGOT) (test code = 23 U/L 13-40 6600289925) eGFR Calculation mL/min/1.73m2 (Non-) (test code = 3810355639) eGFR Calculation mL/min/1.73m2 () (test code = 2686721927) MARCELINO (test code = MARCELINO) Association of Glomerular Filtration Rate (GFR) and Staging of Kidney Disease* + -+ + ---+| GFR (mL/min/1.73 m2) ?| With Kidney Damage ?| ?Without Kidney Damage+ -------+ ------+ ---------+| ?>90 ?| ?Stage one ?| ? Normal ?+ --+ -+ ----+| ?60-89 ?| ?Stage two ?| ? Decreased GFR ? + -+ + ---+| ?30-59 ?| ?Stage three ?| ? Stage three ? + -+ + ---+| ?15-29 ?| ?Stage four ? | ? Stage four ?+ --+ -+ ----+| ?<15 (or dialysis) ? ?| ?Stage five ? | ? Stage five ?+ --+ -+ ----+ *Each stage assumes the associated GFR level has been in effect for at least three months. ?Stages 1 to 5, with or without kidney disease, indicate chronic kidney disease. Notes: Determination of stages one and two (with eGFR >59mL/min/1.73 m2) requires estimation of kidney damage for at least three months as defined by structural or functional abnormalities of the kidney, manifested by either:Pathological abnormalities or Markers of kidney damage (including abnormalities in the composition of the blood or urine or abnormalities in imaging tests). [facility] HospitalL[facility]2020-04-[facility] 10:53:00 Test Item Value Reference Range Interpretation Comments LIPASE (test code = 8278734209) 115 U/L 0-220 Lab Interpretation (test code = Normal 70976-6) [facility]PO[facility] [id number] 10:18:00 Test Item Value Reference Range Interpretation Comments POCT PREG (test code = 1605) Negative On board controls acceptable Present with C Line (test code = 3574) POCT PREG LOT # (test code = HCGF [id number]) POCT PREG TEST DATE (test 01/18/2021 code = 3576) Lab Interpretation (test code = Normal 76875-1) [facility] HospitalXR CHEST 1 [id number] 09:37:51Impression: No radiographic evidence for acute cardiopulmonary disease. RL: 460 AFC: [id number] Indication: Cough Comparison: None available Findings: Single AP view of the chest. The cardiopericardial silhouette iswithin normal limits. The lungs are clear bilaterally. The visualized bonythorax is intact. [facility], Radiant Results Inft User - 08/31/2019 4:39 AM CDTIndication: CoughComparison: None availableFindings: Single AP view of the chest. The cardiopericardial silhouette iswithin normal limits. The lungs are clear bilaterally. The visualized bonythorax is intact.IMPRESSIONImpression:No radiographic evidence for acute cardiopulmonary disease.RL: 460AFC: [id number] signed by Ashley De Leon MD, PhD at 08/31/2019 4:37 AMUnBrownfield Regional [facility] - INFLUENZA A & B DIRECT [id number] 09:37:00 Test Item Value Reference Range Interpretation Comments Influenza A (test code = 41443-7) Negative Negative Influenza B (test code = 14694-3) Negative Negative Lab Interpretation (test code = Normal 32919-7) [facility] STREP SCREEN FOR GROUP [id number] 09:29:00 Test Item Value Reference Range Interpretation Comments Streptococcus pyogenes (group A) Negative Negative antigen (test code = 16583-1) Lab Interpretation (test code = Normal 17273-6) [facility] HospitalORTHOPEDIC INJURY TREATMENT - UPPER EXTREMITY 2019-01-29 19:59:18MorManan merino III, PA? 01/29/2019?4:56 PMORTHOPEDIC INJURY TREATMENT - UPPER EXTREMITYDate/Time: 01/29/2019 4:51 PMPerformed by: Manan Arce III, PAAuthorized by: Manan Arce III, PA Consent: ?Consent obtained:?Verbal?Consent given by:?Patient?Risks discussed:?Fracture, nerve damage, restricted joint movement, vascular damage, stiffness, recurrent dislocation and irreducible dislocation?Alternatives discussed:?No treatmentLocation: ?Location:?Hand?Hand location:?R hand?Hand dislocation type: carpometacarpal (finger)?Pre-procedure assessment: ?Pre-procedure imaging:?X- ray?Imaging findings: fracture present?Imaging findings: no joint dislocation?Distal perfusion: normal?Anesthesia (see MAR for exact dosages): ?Anesthesia method:?NoneProcedure details: ?Manipulation performed: no?Immobilization:?Splint?Splint type:?Sugar tong?Supplies used:?Xbwra-YgafvItiy-mmtovcscz assessment: ?Neurological function: normal?Distal perfusion: normal?Range of motion: unchanged?Patient tolerance of procedure:?Tolerated well, no immediate complicationsUnThe Hospitals of [facility]"
[2021-06-01 20:49] LABS: SARS-COV-2 RT PCR POSITIVE (NEGATIVE)
[2021-06-01] MEDS ORDERED: NA CHLORIDE 0.9% 250 ML ONE (21:38)
[2021-06-01] MEDS ORDERED: NA CHLORIDE 0.9% 50 ML ONE (21:39)
[2021-06-01] MEDS ORDERED: CASIRIVIMAB/IMDEVIMAB 10 ML VIAL ONE (21:39)
[2021-06-01] MEDS ORDERED: AZITHROMYCIN 250 MG TAB ONE (21:47)
[2021-06-01] MEDS ORDERED: FAMOTIDINE 20 MG TAB ONE (21:47)
[2021-06-01] MEDS ORDERED: ASPIRIN 81 MG CHEWABLE TABLET ONE (21:47)
[2021-06-01] MEDS ORDERED: ALBUTEROL INHALER 60 PUFF/8 GM IH ONE (21:49)
[2021-06-01 22:36] LABS: Absolute Lymphocytes (CBC) 1.8 K/uL (0.7-4.9); Basophils % 0.4 % (0-1.3); Hematocrit 34.6 % (36.0-45.0); Lymphocytes % 18.8 % (15.3-44.8); MPV 8.2 fL (7.6-11.3); RBC Red Blood Cell Count 4.07 M/uL (3.86-4.86)
[2021-06-01 22:48] LABS: ALT/SGPT 34 U/L (12-78); AST/SGOT 23 U/L (15-37); Albumin 3.4 g/dL (3.4-5.0); Alkaline Phosphatase 104 U/L (45-117); BUN Blood Urea Nitrogen 6 mg/dL (7-18); Bicarbonate 24 mmol/L (21-32); Bilirubin Total 0.3 mg/dL (0.2-1.0); Ferritin 68.3 ng/mL (8-388); Glucose Level 104 mg/dL (74-106); Potassium 3.9 mmol/L (3.5-5.1); Sodium Level 139 mmol/L (136-145)
--- NOTE | 2021-06-01 22:57 | ER ---
Nurse's Notes [facility] Name: Elba Wells Age: 25 yrs Sex: Female : 1995 Arrival Date: 06/01/2021 Time: 18:57 Bed 11 Private MD: Diagnosis: Coronavirus infection, unspecified;Pneumonia due to SARS-associated coronavirus;Fever, unspecified;Other asthma Presentation: 06/01 19:06 Chief complaint: Patient states: congestion , cough x 3 days. Coronavirus screen: da3 Vaccine status: Patient reports being unvaccinated. Ebola Screen: No symptoms or risks identified at this time. Initial Sepsis Screen: Does the patient meet any 2 criteria? No. Patient's initial sepsis screen is negative. Does the patient have a suspected source of infection? No. Patient's initial sepsis screen is negative. Risk Assessment: Do you want to hurt yourself or someone else? Patient reports no desire to harm self or others. Onset of symptoms was May 29, 2021. 19:06 Method Of Arrival: Ambulatory da3 19:06 Acuity: CED 3 da3 Triage Assessment: 19:06 General: Appears in no apparent distress. uncomfortable, Behavior is calm, cooperative. da3 Pain: Denies pain. EENT: No deficits noted. 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 - Social history:: Smoking status: Patient denies any tobacco usage or history of. Screenin:24 Abuse screen: Denies threats or abuse. Nutritional screening: No deficits noted. bb Tuberculosis screening: No symptoms or risk factors identified. Fall Risk None identified. Assessment: 21:30 General: Appears in no apparent distress. obese, Behavior is calm, cooperative. Neuro: bb Level of Consciousness is awake, alert, obeys commands, Oriented to person, place, time, situation. Cardiovascular: Capillary refill < 3 seconds Patient's skin is warm and dry. Respiratory: Airway is patent Respiratory effort is unlabored, Breath sounds are clear bilaterally. GI: No signs and/or symptoms were reported involving the gastrointestinal system. Derm: Skin is pink, warm \T\ dry. Musculoskeletal: Circulation, motion, and sensation intact. 23:00 Reassessment: Patient is alert, oriented x 3, equal unlabored respirations, skin bb warm/dry/pink. IV site intact, patent, family at bedside. 06/02 00:57 Reassessment: Patient is alert, oriented x 3, equal unlabored respirations, skin bb warm/dry/pink. pt verbalized understanding of and agrees to plan of care discharge instructions given pt ambulated with steady gait to exit accompanied by family. Vital Signs: 06/01 19:06 BP 129 / 84; Pulse 94; Resp 22; Temp 98.1; Pulse Ox 100% on R/A; Weight 99.79 kg; da3 Height 5 ft. 7 in. (170.18 cm); 22:52 BP 106 / 67; Pulse 73; Resp 18 S; Pulse Ox 97% on R/A; bb 06/02 00:57 BP 100 / 67; Pulse 69; Resp 18 S; Temp 98.2(O); Pulse Ox 99% on R/A; bb 06/01 19:06 Body Mass Index 34.46 (99.79 kg, 170.18 cm) da3 ED Course: 06/01 18:57 Patient arrived in ED. am2 19:06 Arm band placed on right wrist. da3 19:08 Triage completed. da3 19:16 Ariel Solomon MD is Attending Physician. [facility] 19:33 Flu and/or RSV swab sent to lab. Strep swab sent to lab. lt3 19:33 Strep Sent. lt3 22:23 Tawana Berg, BALDOMERO is Primary Nurse. bb 22:24 Patient has correct armband on for positive identification. Bed in low position. Call bb light in reach. 22:24 Inserted saline lock: 22 gauge in right wrist, using aseptic technique. Blood ds4 collected. Missed attempt(s): 20 gauge in right forearm. Bleeding controlled, band aid applied, catheter tip intact. 22:24 No provider procedures requiring assistance completed. bb 22:54 Chest Single View XRAY In Process Unspecified. EDMS 22:56 Kenneth Tirado MD is Referral Physician. [facility] 06/02 00:11 Urine Dipstick-Ancillary Sent. lt3 00:35 Kenneth Tirado MD is Referral Physician. sada 01:07 intact, bleeding controlled, No redness/swelling at site. Pressure dressing applied. bb Administered Medications: 06/01 21:51 Drug: Zithromax (azithromycin) 500 mg Route: PO; bb 22:25 Follow up: Response: No adverse reaction bb 21:51 Drug: Albuterol HFA Inhaler 4 puffs Route: Inhalation; bb 22:25 Follow up: Response: No adverse reaction bb 21:52 Drug: Pepcid (famotidine) 40 mg Route: PO; bb 22:25 Follow up: Response: No adverse reaction bb 21:52 Drug: Aspirin Chewable Tablet 324 mg Route: PO; bb 22:25 Follow up: Response: No adverse reaction bb 22:25 Not Given (unavailablee): Montelukast 10 mg PO once bb 22:56 Drug: Casirivimab-Imdevimab Dose Pack 120 mg/mL-120 mg/mL (EUA) 1 vials Route: IV; bb Rate: per protocol; Site: right forearm; 06/02 00:10 Follow up: IV Status: Completed infusion; IV Intake: 270ml bb 06/01 23:25 Drug: Ondansetron 4 mg Route: PO; bb 23:54 Follow up: Response: No adverse reaction bb Intake: 06/02 00:10 IV: 270ml; Total: 270ml. bb Outcome: 06/01 22:56 Discharge ordered by . [facility] 06/02 00:35 Discharge ordered by MD. [facility] 01:06 Discharged to home ambulatory, with family. 01:06 Condition: stable 01:06 Discharge instructions given to patient, Instructed on discharge instructions, follow up and referral plans. medication usage, Demonstrated understanding of instructions, follow-up care, medications, Prescriptions given X x5 01:07 Patient left the ED. bb Signatures: Dispatcher [employer] LILIANETN Ariel Solomon MD MD cha Ballard, Brenda, RN RN Jin Perez ds4 Irene Pagan am2 Tanmay Lira, RN RN gwyn3 Venita Oconnell lt3 Corrections: (The following items were deleted from the chart) 06/01 19:47 19:33 SARS-COV-2 RT PCR+MOL.LAB.BRZ drawn and sent. lt3 EDMS 19:48 19:33 Influenza Screen (A \T\ B)+BA.LAB.BRZ drawn and sent. lt3 EDMS
--- NOTE | 2021-06-01 22:57 | EDPHYS ---
Physician Documentation [facility] Name: Elba Wells Age: 25 yrs Sex: Female : 1995 Arrival Date: 06/01/2021 Time: 18:57 Bed 11 Private MD: ED Physician Areil Solomon HPI: 06/01 21:43 This 25 yrs old Female presents to ER via Ambulatory with complaints of Cough, sada Sore Throat, Chest Pain, Shortness Of Breath. 21:43 The patient or guardian reports cough, with no sputum, difficulty breathing. Onset: The sada symptoms/episode began/occurred 3 day(s) ago. Severity of symptoms: At their worst the symptoms were mild, moderate, in the emergency department the symptoms are unchanged. Modifying factors: The symptoms are alleviated by cool environment, inhaler, nebulizer treatment, the symptoms are aggravated by exertion. Associated signs and symptoms: Pertinent positives: rhinorrhea, sore throat. The patient has experienced similar episodes in the past, several times. 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 - Social history:: Smoking status: Patient denies any tobacco usage or history of. ROS: 21:44 Constitutional: Negative for fever, chills, and weight loss, Eyes: Negative for injury, sada pain, redness, and discharge, Neck: Negative for injury, pain, and swelling, Cardiovascular: Negative for chest pain, palpitations, and edema, Abdomen/GI: Negative for abdominal pain, nausea, vomiting, diarrhea, and constipation, Back: Negative for injury and pain, : Negative for injury, bleeding, discharge, and swelling, MS/Extremity: Negative for injury and deformity, Skin: Negative for injury, rash, and discoloration, Neuro: Negative for headache, weakness, numbness, tingling, and seizure, Psych: Negative for depression, anxiety, suicide ideation, homicidal ideation, and hallucinations, Allergy/Immunology: Negative for hives, rash, and allergies, Endocrine: Negative for neck swelling, polydipsia, polyuria, polyphagia, and marked weight changes, Hematologic/Lymphatic: Negative for swollen nodes, abnormal bleeding, and unusual bruising. 21:44 ENT: Positive for rhinorrhea, sinus congestion, sinus pain, sore throat. 21:44 Respiratory: Positive for cough, shortness of breath, on exertion. Exam: 21:44 Constitutional: This is a well developed, well nourished patient who is awake, alert, sada and in no acute distress. Head/Face: Normocephalic, atraumatic. Eyes: Pupils equal round and reactive to light, extra-ocular motions intact. Lids and lashes normal. Conjunctiva and sclera are non-icteric and not injected. Cornea within normal limits. Periorbital areas with no swelling, redness, or edema. ENT: Nares patent. No nasal discharge, no septal abnormalities noted. Tympanic membranes are normal and external auditory canals are clear. Oropharynx with no redness, swelling, or masses, exudates, or evidence of obstruction, uvula midline. Mucous membranes moist. Neck: Trachea midline, no thyromegaly or masses palpated, and no cervical lymphadenopathy. Supple, full range of motion without nuchal rigidity, or vertebral point tenderness. No Meningismus. Chest/axilla: Normal chest wall appearance and motion. Nontender with no deformity. No lesions are appreciated. Cardiovascular: Regular rate and rhythm with a normal S1 and S2. No gallops, murmurs, or rubs. Normal PMI, no JVD. No pulse deficits. Abdomen/GI: Soft, non-tender, with normal bowel sounds. No distension or tympany. No guarding or rebound. No evidence of tenderness throughout. Back: No spinal tenderness. No costovertebral tenderness. Full range of motion. Skin: Warm, dry with normal turgor. Normal color with no rashes, no lesions, and no evidence of cellulitis. MS/ Extremity: Pulses equal, no cyanosis. Neurovascular intact. Full, normal range of motion. Neuro: Awake and alert, GCS 15, oriented to person, place, time, and situation. Cranial nerves II-XII grossly intact. Motor strength 5/5 in all extremities. Sensory grossly intact. Cerebellar exam normal. Normal gait. Psych: Awake, alert, with orientation to person, place and time. Behavior, mood, and affect are within normal limits. 21:44 Respiratory: the patient does not display signs of respiratory distress, Respirations: no acute changes, Breath sounds: rhonchi, + upper airway congestion. Respiratory rate: 22 Vital Signs: 19:06 BP 129 / 84; Pulse 94; Resp 22; Temp 98.1; Pulse Ox 100% on R/A; Weight 99.79 kg; da3 Height 5 ft. 7 in. (170.18 cm); 22:52 BP 106 / 67; Pulse 73; Resp 18 S; Pulse Ox 97% on R/A; bb 06/02 00:57 BP 100 / 67; Pulse 69; Resp 18 S; Temp 98.2(O); Pulse Ox 99% on R/A; bb 06/01 19:06 Body Mass Index 34.46 (99.79 kg, 170.18 cm) da3 MDM: 06/01 21:25 Patient medically screened. [facility] 21:44 Differential diagnosis: viral Infection, bacterial infection, URI, bronchitis, sada pneumonia UTI. Differential Diagnosis: Bronchitis Influenza Upper Respiratory Infection Sinusitis Asthma Exacerbation Viral Syndrome Pneumonia. Data reviewed: vital signs, nurses notes, lab test result(s), radiologic studies, plain films. Data interpreted: nuclear monitoring technician: rate is 94 beats/min, rhythm is regular, Pulse oximetry: on room air is 100 %. Test interpretation: by ED physician or midlevel provider: plain radiologic studies. Counseling: I had a detailed discussion with the patient and/or guardian regarding: the presence of at least one elevated blood pressure reading (>120/80) during this emergency department visit, lab results, radiology results, the need for outpatient follow up. 06/01 19:17 Order name: Strep; Complete Time: 21:32 [facility] 06/01 19:48 Order name: COVID-19/FLU A+B; Complete Time: 21:32 [facility]SD 06/01 20:08 Order name: Throat Culture [facility] 06/01 21:43 Order name: CBC with Diff; Complete Time: 22:54 [facility] 06/01 21:43 Order name: Chest Single View XRAY [facility] 06/01 21:43 Order name: Comprehensive Metabolic Panel; Complete Time: 22:54 [facility] 06/01 21:43 Order name: Ferritin; Complete Time: 22:54 [facility] 06/01 21:43 Order name: CRP; Complete Time: 22:54 [facility] 06/02 00:04 Order name: Urine Dipstick-Ancillary EDMS 06/02 00:11 Order name: Urine Dipstick-Ancillary EDMS 06/02 00:11 Order name: Urine --Ancillary (enter results) lt3 06/02 00:12 Order name: Urine --Ancillary EDMS 06/01 21:43 Order name: Urine Dipstick-Ancillary (obtain specimen); Complete Time: 23:54 [facility] 06/01 21:43 Order name: Urine Test (obtain specimen); Complete Time: 23:54 sada Administered Medications: 21:51 Drug: Zithromax (azithromycin) 500 mg Route: PO; bb 22:25 Follow up: Response: No adverse reaction bb 21:51 Drug: Albuterol HFA Inhaler 4 puffs Route: Inhalation; bb 22:25 Follow up: Response: No adverse reaction bb 21:52 Drug: Pepcid (famotidine) 40 mg Route: PO; bb 22:25 Follow up: Response: No adverse reaction bb 21:52 Drug: Aspirin Chewable Tablet 324 mg Route: PO; bb 22:25 Follow up: Response: No adverse reaction bb 22:25 Not Given (unavailablee): Montelukast 10 mg PO once bb 22:56 Drug: Casirivimab-Imdevimab Dose Pack 120 mg/mL-120 mg/mL (EUA) 1 vials Route: IV; bb Rate: per protocol; Site: right forearm; 06/02 00:10 Follow up: IV Status: Completed infusion; IV Intake: 270ml bb 06/01 23:25 Drug: Ondansetron 4 mg Route: PO; bb 23:54 Follow up: Response: No adverse reaction bb Disposition Summary: 06/02/21 00:35 Discharge Ordered Location: Home(06/02/21 00:35) sada Problem: new(06/02/21 00:35) sada Symptoms: have improved(06/02/21 00:35) sada Condition: Stable(06/02/21 00:35) sada Diagnosis - Coronavirus infection, unspecified(06/02/21 00:35) sada - Pneumonia due to SARS-associated coronavirus(06/02/21 00:35) sada - Fever, unspecified(06/02/21 00:35) sada - Other asthma(06/02/21 00:35) [facility] Followup: sada - With: Private Physician - When: 2 - 3 days - Reason: Recheck today's complaints, Continuance of care, Re-evaluation by your physician Followup: sada - With: - When: 2 - 3 days - Reason: Recheck today's complaints, Re-evaluation by your physician Discharge Instructions: - Discharge Summary Sheet [facility] - Asthma, Adult sada - Asthma, Adult, [id number] [facility] - Community-Acquired Pneumonia, Adult, [id number] [facility] - COVID-19 [facility] - COVID-19 Frequently Asked Questions [facility] - Things You Can Do to Manage Your COVID-19 Symptoms at Home - [facility] - COVID-19: Quarantine vs. Isolation - [facility] Forms: - Medication Reconciliation Form [facility] - Thank You Letter [facility] - Antibiotic Education [facility] - Prescription Opioid Use [facility] - Work release form bb Prescriptions: - albuterol sulfate 90 mcg/actuation Inhalation HFA aerosol inhaler - inhale 2 puff by INHALATION route every 4-6 hours; 2 Pump; Refills: 0, Product [facility] Selection Permitted - ivermectin 3 mg Oral tablet - take 4 tablet by ORAL route once daily on days 1,3 and 5; 12 tablet; Refills: sada 0, Product Selection Permitted - Pepcid 20 mg Oral Tablet - take 1 tablet by ORAL route every 12 hours for 30 days; 60 tablet; Refills: 0, [facility] Product Selection Permitted - Singulair 10 mg Oral Tablet - take 1 tablet by ORAL route At bedtime; 30 tablet; Refills: 0, Product [facility] Selection Permitted - Zithromax 500 mg Oral Tablet - take 1 tablet by ORAL route once daily for 5 days; 5 tablet; Refills: 0, [facility] Product Selection Permitted Signatures: Dispatcher [employer] EDMS Ariel Solomon MD MD cha Ballard, Brenda, RN RN bb Tanmay Lira, RN RN da3 Corrections: (The following items were deleted from the chart) 19:47 19:17 SARS-COV-2 RT PCR+MOL.LAB.BRZ ordered. EDMS EDMS 19:48 19:17 Influenza Screen (A \T\ B)+BA.LAB.BRZ ordered. EDMS EDMS 23:03 22:56 Home [facility] 23:03 22:56 new [facility] 23:03 22:56 have improved [facility] 23:03 22:56 Stable [facility] : 22:56 Coronavirus infection, unspecified [facility] 22:56 Pneumonia due to SARS-associated coronavirus [facility] 22:56 Fever, unspecified [facility] 22:56 Other asthma [facility]
[2021-06-01] MEDS ORDERED: ONDANSETRON 4 MG (ODT) TAB ONE (23:25)
[2021-06-02 00:04] LABS: Urine Blood Negative (Negative); Urine Glucose Negative (Negative); Urine Protein Negative (Negative)
[2021-06-02 01:15] VITALS: BP 100/67; TEMP 98.2; O2SAT 99
--- NOTE | 2021-06-02 07:32 | RAD REPORT ---
EXAM DESCRIPTION: Ed Single View06/01/2021 10:54 pm CLINICAL HISTORY: Cough COMPARISON: August 2020 FINDINGS: The lungs appear clear of acute infiltrate. The heart is normal size IMPRESSION: No acute abnormalities displayed
== END 2021-06-02 01:07 | disposition home or self-care (01) ==
LOC: ER 18:53
DX: U07.1 COVID-19 (principal); J12.82 Pneumonia due to coronavirus disease 2019; J45.998 Other asthma; Z91.041 Radiographic dye allergy status; Z91.048 Other nonmedicinal substance allergy status
CPT/HCPCS: 0240U; 36415; 71045; 80053; 81003; 81025; 82728; 85025; 86140; 87070; 87081; 96365; 99284; J7050; M0243

== ENCOUNTER 2021-06-03 17:11 | Emergency (ER) | payer SELFPAY ==
--- OUTSIDE RECORDS SUMMARY | 2021-06-03 17:17 | XMS REPORT | Continuity of Care Document ---
:1995 Author Organization [facility] t Address [address] [place] [address] [address] [place] [address] Care Team Providers Name Role Phone PCP, [...] Source Date Date Healthcare Agents on N/A [facility] ersity FileNameRelationshipHealthcare of [place] Agent Medical RelationshipCommunicationErlinda Branch NunezOtherFirst alternate healthcare [phone] (Mobile) Problems Condition Condition Condition Status Onset [...] STD 00:[place] ([place]ually (sexually 00 [facility] kavon transmitte transmitte Br anch d disease) d disease) Well woman Well woman Disease Active 2017-06 U nivers exam exam 106 ity of 00:00: [place] 00 Medical Branch Contracept Contracept Disease Active 2017-06 U nivers debra debra 106 ity of management management [place] Overweight Overweight Disease Active U nivers 2- ity of 00:00: [place] 00 Medical Branch BMI BMI Disease Active [...] Date Quantity Comments Source Exposure to Yes [facility] SARS-CoV-2 [place] [facility] (event) Branch Alcohol intake 2021-03-16 2021-03-16 Current drinker Unive rsity of 00:00:00 00:00:00 of alcohol [place] [facility] (finding) Branch History SDOH 2020-06-27 2020-06-27 3 University o f Alcohol Frequency 00:00:00 00:00:00 [place] M ed[facility] Branch History SDOH 2020-06-27 2020-06-27 99 University o f Alcohol Std 00:00:00 00:00:00 [place] [facility] Drinks Branch History SDVA 2020-06-27 2020-06-27 99 University o f Alcohol Binge 00:00:00 00:00:00 [place] [facility] Alcohol Comment 2020-06-27 2020-06-27 on occassion, Univer sity of 00:00:00 00:00:00 liquor and beer [place] [facility] ical on occassions. Branch Tobacco use and 2016-02-11 2016-02-11 Never used Universit y of exposure 00:00:00 00:00:00 [facility] Sex Assigned At [birth year] Universit y of 00:00:00 00:00:00 [facility] Smoking Status Start Date Stop Date Source Never smoker [facility] Medications Ordered Filled Start Stop Current Ordering Indication Dosage Frequency Signature Comments Components Source Medication Medication Date Date Medication? Clinician (SIG) Name Name ibuprofen Yes [id number] 600mg Take 1 Univers 600 mg 9-27 [id number] tablet by ity of tablet 00:00: mouth [place] 00 every 6 Medical (six) Branch hours as needed for Pain (scale 4-6). ibuprofen Yes [id number] 600mg Take 1 Univers 600 mg 9-27 [id number] tablet by ity of tablet 00:00: mouth [place] 00 every 6 Medical (six) Branch hours as needed for Pain (scale 4-6). ibuprofen 2020-0 2020- No 600mg 600 mg, Uni vers (IBU) 02-19 Oral, ity of tablet 600 08:45: 07:44 ONCE, 1 [place] mg 00 :00 dose, [facility] 02/19/21 at Branch 0345, DOUGLAS ibuprofen 2020-0 2020- No 600mg 600 mg, Uni vers (IBU) 02-19 Oral, ity of tablet 600 08:45: 07:44 ONCE, 1 [place] mg 00 :00 dose, [facility] 02/19/21 at Branch 0345, DOUGLAS omeprazole 2020-0 Yes 10mg Take 10 mg U nivers 10 mg 1-07 by mouth ity of capsule 21:45: daily. [address] omeprazole 2020-0 Yes 10mg Take 10 mg U nivers 10 mg 1-07 by mouth ity of capsule 21:45: daily. [address] cetirizine 0 Yes Take by Uni vers HCl (ZYRTEC 1-07 mouth. ity of ORAL) 21:45: [address] cetirizine 2020-0 Yes Take by Uni vers HCl (ZYRTEC 1-07 mouth. ity of ORAL) 21:45: [address] omeprazole 2020-0 Yes 10mg Take 10 mg U nivers 10 mg 1-07 by mouth ity of capsule 21:45: daily. [address] cetirizine 2020-0 Yes Take by Uni vers HCl (ZYRTEC 1-07 mouth. ity of ORAL) 21:45: [address] omeprazole 2020-0 Yes 10mg Take 10 mg U nivers 10 mg 1-07 by mouth ity of capsule 21:45: daily. [address] cetirizine 2020-0 Yes Take by Uni vers HCl (ZYRTEC 1-07 mouth. ity of ORAL) 21:45: [address] omeprazole 2020-0 Yes 10mg Take 10 mg U nivers 10 mg 1-07 by mouth ity of capsule 21:45: daily. [address] cetirizine 2020-0 Yes Take by Uni vers HCl (ZYRTEC 1-07 mouth. ity of ORAL) 21:45: [address] omeprazole 2020-0 Yes 10mg Take 10 mg U nivers 10 mg 1-07 by mouth ity of capsule 21:45: daily. [address] cetirizine 2020-0 Yes Take by Uni vers HCl (ZYRTEC 1-07 mouth. ity of ORAL) 21:45: [address] omeprazole 2020-0 Yes 10mg Take 10 mg U nivers 10 mg 1-07 by mouth ity of capsule 21:45: daily. [address] cetirizine 2020-0 Yes Take by Uni vers HCl (ZYRTEC 1-07 mouth. ity of ORAL) 21:45: [address] omeprazole 2020-0 Yes 10mg Take 10 mg U nivers 10 mg 1-07 by mouth ity of capsule 15:45: daily. [address] cetirizine 2020-0 Yes Take by Uni vers HCl (ZYRTEC 1-07 mouth. ity of ORAL) 15:45: [address] omeprazole 2020-0 Yes 10mg Take 10 mg U nivers 10 mg 1-07 by mouth ity of capsule 15:45: daily. [address] cetirizine 2020-0 Yes Take by Uni vers HCl (ZYRTEC 1-07 mouth. ity of ORAL) 15:45: [address] FENTanyl PF 2019-06- No 50ug 50 mcg, Un phuong (SUBLIMAZE 0-08 10-08 Slow IV ity o f (PF)) 05:45: 05:13 Push, [place] injection 00 :00 ONCE, 1 Medical 50 mcg dose, [facility] 03/28/20 at 0045, STAT metoclopram 2019-06- No 10mg 10 mg, Uni vers julia HCl 0-08 10-08 Slow IV ity of (REGLAN) 02:15: 01:29 Push, [place] injection 00 :00 ONCE, 1 Medical 10 mg dose, [facility] 03/27/20 at 2115, DOUGLAS diphenhydrA 2019-06- No 25mg 25 mg, Uni vers MINE 0-08 10-08 Slow IV ity of (BENADRYL) 02:15: 01:29 Push, [place] injection 00 :00 ONCE, 1 Medical 25 mg dose, [facility] 03/27/20 at 2115, STAT ketorolac 2019-06 No 30mg 30 mg, Unive rs (TORADOL) 0-08 10-08 Slow IV ity of injection 02:15: 01:29 Push, [place] 30 mg 00 :00 ONCE, 1 Medical dose, Wed Branch 03/27/20 at 2115, DOUGLAS
[facility] Restricted medication : Sam KEMP NaCl 0.9% 2019-06- No 1000mL at 999 Uni vers (NS) bolus 0-08 10-08 mL/hr, ity of infusion 02:15: 03:33 1,000 mL, [place] as 1,000 mL 00 :00 IV Medical Infusion, Branch ONCE, 1 dose, 03/27/20 at 2115, STAT ibuprofen 2019-06 Yes [id number] 600mg Take 1 Univers 600 mg 0-07 tablet by ity of tablet 00:00: mouth [place] 00 every 6 Medical (six) Branch hours as needed for Pain (scale 4-6). ondansetron 2019-06 Yes [id number] 4mg Take 1 Univers (ZOFRAN 0-07 tablet by ity of ODT) 4 mg 00:00: mouth [place] disintegrat 00 every 8 Medic al ing tablet (eight) Branch hours as needed for Nausea and Vomiting (N/V). ibuprofen 2019-06 No [id number] 600mg Take 1 Univers 600 mg 0-07 01-07 tablet by ity of tablet 00:00: 00:00 mouth [place] 00 :00 every 6 Medical (six) Branch hours as needed for Pain (scale 4-6). ondansetron 2019-06 No [id number] 4mg Take 1 Univers (ZOFRAN 0-07 01-07 tablet by ity of ODT) 4 mg 00:00: 00:00 mouth [place] disintegrat 00 :00 every 8 Medic al ing tablet (eight) Branch hours as needed for Nausea and Vomiting (N/V). ibuprofen 2019-06- No [id number] 600mg Take 1 Univers 600 mg 0-07 01-07 tablet by ity of tablet 00:00: 00:00 mouth [place] 00 :00 every 6 Medical (six) Branch hours as needed for Pain (scale 4-6). ondansetron 2019-06 No [id number] 4mg Take 1 Univers (ZOFRAN 0-07 -07 [...] ity of mg 08:00: 06:57 ONCE, 1 [place] 00 :00 dose, Tue Medical 12/05/19 at Branch 0300, STAT NaCl 0.9% 2019- No 1000mL at 999 Uni vers (NS) bolus 12-04 mL/hr, ity of infusion 07:00: 08:35 1,000 mL, [place] as 1,000 mL 00 :00 IV Medical Infusion, Branch ONCE, 1 dose, 12/05/19 at 0200, DOUGLAS traMADol 50 2020-0 Yes [id number] 50mg Take 1 Univers mg tablet 6-16 tablet by ity o f 00:00: mouth [place] 00 every 6 Medical (six) Branch hours as needed (pain). proMETHazin 2020-0 Yes [id number] 25mg Take 1 Univers e 25 mg 6-16 tablet by ity of tablet 00:00: mouth [place] 00 every 6 Medical (six) Branch hours as needed for Nausea and Vomiting (N/V). traMADol 50 2020-0 Yes [id number] 50mg Take 1 Univers mg tablet 6-16 tablet by ity o f 00:00: mouth [place] 00 every 6 Medical (six) Branch hours as needed (pain). proMETHazin 2020-0 Yes [id number] 25mg Take 1 Univers e 25 mg 6-16 tablet by ity of tablet 00:00: mouth [place] 00 every 6 Medical (six) Branch hours as needed for Nausea and Vomiting (N/V). traMADol 50 2019-0 2020- No [id number] 50mg Take 1 Univers mg tablet 12-04 tablet by ity of 00:00: 00:00 mouth [place] 00 :00 every 6 Medical (six) Branch hours as needed (pain). proMETHazin 2019- No [id number] 25mg Take 1 Univers e 25 mg 12-04 tablet by ity of tablet 00:00: 00:00 mouth [place] 00 :00 every 6 Medical (six) Branch hours as needed for Nausea and Vomiting (N/V). traMADol 50 No [id number] 50mg Take 1 Univers mg tablet 12-04 tablet by ity of 00:00: 00:00 mouth [place] 00 :00 every 6 Medical (six) Branch hours as needed (pain). proMETHazin 2019- [id number] 25mg Take 1 Univers e 25 mg [...] 11/15/19 at 2115, STAT ibuprofen 2019- Yes [id number] 600mg Take 1 U nivers 600 mg 5-27 tablet by ity of tablet 00:00: mouth [place] 00 every 6 Medical (six) Branch hours as needed for Pain (scale 4-6). acetaminoph 2019- Yes [id number] 1{tbl} Take 1 Univers en-codeine 5-27 tablet by ity of 300-30 mg 00:00: mouth [place] tablet 00 every 4 Medical (four) Branch hours as needed for Pain (scale 4-6). ibuprofen Yes [id number] 600mg Take 1 U nivers 600 mg 5-27 tablet by ity of tablet 00:00: mouth [place] 00 every 6 Medical (six) Branch hours as needed for Pain (scale 4-6). acetaminoph Yes [id number] 1{tbl} Take 1 Univers en-codeine 5-27 tablet by ity of 300-30 mg 00:00: mouth [place] tablet 00 every 4 Medical (four) Branch hours as needed for Pain (scale 4-6). ibuprofen Yes [id number] 600mg Take 1 U nivers 600 mg 5-27 tablet by ity of tablet 00:00: mouth [place] 00 every 6 Medical (six) Branch hours as needed for Pain (scale 4-6). acetaminoph Yes [id number] 1{tbl} Take 1 Univers en-codeine 5-27 tablet by ity of 300-30 mg 00:00: mouth [place] tablet 00 every 4 Medical (four) Branch hours as needed for Pain (scale 4-6). ibuprofen 2020- No [id number] 600mg Take 1 Univers 600 mg 5-27 01-07 tablet by ity of tablet 00:00: 00:00 mouth [place] 00 :00 every 6 Medical (six) Branch hours as needed for Pain (scale 4-6). acetaminoph 2019-2020- No [id number] 1{tbl} Take 1 Univers en-codeine 5-27 01- tablet by ity of 300-30 mg 00:00: 00:00 mouth [place] tablet 00 :00 every 4 Medical (four) Branch hours as needed for Pain (scale 4-6). ibuprofen 2019- No [id number] 600mg Take 1 Univers 600 mg 11-14- tablet by ity of tablet 00:00: 00:00 mouth [place] 00 :00 every 6 Medical (six) Branch hours as needed for Pain (scale 4-6). acetaminoph 2019-2020- No [id number] 1{tbl} Take 1 Univers en-codeine 11-14- tablet [...] :00 ONCE, 1 Medical 20 mg dose, [facility] Branch 10/19/19 at 0545, DOUGLAS NaCl 0.9% [...] #3) 300-30 00 :00 dose, [facility] kavon mg tablet 1 08/31/19 at Br anch tablet 0600, DOUGLAS ondansetron 2019-0 2020- No 4mg 4 mg, Univ ers (ZOFRAN-ODT 3-12 -12 Oral, ity of ) 10:15: 09:07 ONCE, 1 [place] disintegrat 00 :00 dose, [facility] ical ing tablet 08/31/19 at [facility] 4 mg 0515, Routine ondansetron 2020-0 Yes [id number] 4mg Take 1 Univers 4 mg 3-12 tablet by ity of disintegrat 00:00: mouth [place] ing tablet 00 every 4 Medica l (four) Branch hours as needed for Nausea and Vomiting (N/V). acetaminoph 2020-0 Yes [id number] 1{tbl} Take 1-2 Univers en-codeine 3-12 tablets by ity of 300-30 mg 00:00: mouth [place] tablet 00 every 6 Medical (six) Branch hours as needed (cough). ibuprofen 2020-0 Yes [id number] 800mg Take 1 U nivers 800 mg 3-12 tablet by ity of tablet 00:00: mouth [place] 00 every 8 Medical (eight) Branch hours as needed for Pain (scale 4-6). ondansetron 2020-0 Yes [id number] 4mg Take 1 Univers 4 mg 3-12 tablet by ity of disintegrat 00:00: mouth [place] ing tablet 00 every 4 Medica l (four) Branch hours as needed for Nausea and Vomiting (N/V). acetaminoph 2020-0 Yes [id number] 1{tbl} Take 1-2 Univers en-codeine 3-12 tablets by ity of 300-30 mg 00:00: mouth [place] tablet 00 every 6 Medical (six) Branch hours as needed (cough). ibuprofen 2020-0 Yes [id number] 800mg Take 1 U nivers 800 mg 3-12 tablet by ity of tablet 00:00: mouth [place] 00 every 8 Medical (eight) Branch hours as needed for Pain (scale 4-6). ondansetron 2020-0 Yes [id number] 4mg Take 1 Univers 4 mg 3-12 tablet by ity of disintegrat 00:00: mouth [place] ing tablet 00 every 4 Medica l (four) Branch hours as needed for Nausea and Vomiting (N/V). acetaminoph 2020-0 Yes [id number] 1{tbl} Take 1-2 Univers en-codeine 3-12 tablets by ity of 300-30 mg 00:00: mouth [place] tablet 00 every 6 Medical (six) Branch hours as needed (cough). ibuprofen 2020-0 Yes [id number] 800mg Take 1 U nivers 800 mg 3-12 tablet by ity of tablet 00:00: mouth [place] 00 every 8 Medical (eight) Branch hours as needed for Pain (scale 4-6). ondansetron 2020-0 Yes [id number] 4mg Take 1 Univers 4 mg 3-12 tablet by ity of disintegrat 00:00: mouth [place] ing tablet 00 every 4 Medica l (four) Branch hours as needed for Nausea and Vomiting (N/V). acetaminoph 2020-0 Yes [id number] 1{tbl} Take 1-2 Univers en-codeine 3-12 tablets by ity of 300-30 mg 00:00: mouth [place] tablet 00 every 6 Medical (six) Branch hours as needed (cough). ibuprofen 2020-0 Yes [id number] 800mg Take 1 U nivers 800 mg 3-12 tablet by ity of tablet 00:00: mouth [place] 00 every 8 Medical (eight) Branch hours as needed for Pain (scale 4-6). ondansetron 2020-0 Yes [id number] 4mg Take 1 Univers 4 mg 3-12 tablet by ity of disintegrat 00:00: mouth [place] ing tablet 00 every 4 Medica l (four) Branch hours as needed for Nausea and Vomiting (N/V). acetaminoph 2020-0 Yes [id number] 1{tbl} Take 1-2 Univers en-codeine 3-12 tablets by ity of 300-30 mg 00:00: mouth [place] tablet 00 every 6 Medical (six) Branch hours as needed (cough). ibuprofen Yes [id number] 800mg Take 1 U nivers 800 mg 3-12 tablet by ity of tablet 00:00: mouth [place] 00 every 8 Medical (eight) Branch hours as needed for Pain (scale 4-6). ondansetron 2020- No [id number] 4mg Take 1 Univers 4 mg 3-12 - tablet by ity of disintegrat 00:00: 00:00 [place] tablet 00 :00 every 4 Medica l (four) Branch hours as needed for Nausea and Vomiting (N/V). acetaminoph 2020- No [id number] 1{tbl} Take 1-2 Univers en-codeine 3-05 21- tablets by it y of 300-30 mg 00:00: 00:00 mouth [place] tablet 00 :00 every 6 Medical (six) Branch hours as needed (cough). ibuprofen No [id number] 800mg Take 1 Univers 800 mg 3-12 - tablet by ity of tablet 00:00: 00:00 mouth [place] 00 :00 every 8 Medical (eight) Branch hours as needed for Pain (scale 4-6). ondansetron 2020- No [id number] 4mg Take 1 Univers 4 mg 3-12 - tablet by ity of disintegrat 00:00: 00:00 [place] tablet 00 :00 every 4 Medica l (four) Branch hours as needed for Nausea and Vomiting (N/V). acetaminoph No [id number] 1{tbl} Take 1-2 Univers en-codeine 3-05 21-07 tablets by it y of 300-30 mg 00:00: 00:00 mouth [place] tablet 00 :00 every 6 Medical (six) Branch hours as needed (cough). ibuprofen 2020- No [id number] 800mg Take 1 Univers 800 mg 3-12 -07 tablet by ity of tablet 00:00: 00:00 mouth [place] 00 :00 every 8 Medical (eight) Branch hours as needed for Pain (scale 4-6). sod 2018-06 Yes [id number] 1{bottl Use 1 Unive rs chlor-bicar 2-20 e} Bottle in ity of b-squeez 00:00: each [place] bottle 00 nostril 2 Medical (NEILMED (two) Branch SINUS RINSE times COMPLETE) daily. Use pkdv in hot shower 1 hour before bedtime promethazin 2018-06 Yes [id number] 5mL Take 5 mL Univers e-codeine 2-20 by mouth 4 ity of 6.25-10 00:00: (four) [place] mg/5 mL 00 times Medical syrup daily as Branch needed for Cough. sod 2018-06 Yes [id number] 1{bottl Use 1 Unive rs chlor-bicar 2-20 e} Bottle in ity of b-squeez 00:00: each [place] bottle 00 nostril 2 Medical (NEILMED (two) Branch SINUS RINSE times COMPLETE) daily. Use pkdv in hot shower 1 hour before bedtime promethazin 2018-06 Yes [id number] 5mL Take 5 mL Univers e-codeine 2-20 by mouth 4 ity of 6.25-10 00:00: (four) [place] mg/5 mL 00 times Medical syrup daily as Branch needed for Cough. sod 2018-06 Yes [id number] 1{bottl Use 1 Unive rs chlor-bicar 2-20 e} Bottle in ity of b-squeez 00:00: each [place] bottle 00 nostril 2 Medical (NEILMED (two) Branch SINUS RINSE times COMPLETE) daily. Use pkdv in hot shower 1 hour before bedtime promethazin 2018-06 Yes [id number] 5mL Take 5 mL Univers e-codeine 2-20 by mouth 4 ity of 6.25-10 00:00: (four) [place] mg/5 mL 00 times Medical syrup daily as Branch needed for Cough. sod 2018-06 Yes [id number] 1{bottl Use 1 Unive rs chlor-bicar 2-20 e} Bottle in ity of b-squeez 00:00: each [place] bottle 00 nostril 2 Medical (NEILMED (two) Branch SINUS RINSE times COMPLETE) daily. Use pkdv in hot shower 1 hour before bedtime promethazin 2018-06 Yes [id number] 5mL Take 5 mL Univers e-codeine 2-20 by mouth 4 ity of 6.25-10 00:00: (four) [place] mg/5 mL 00 times Medical syrup daily as Branch needed for Cough. sod 2018-06 Yes [id number] 1{bottl Use 1 Unive rs chlor-bicar 2-20 e} Bottle in ity of b-squeez 00:00: each [place] bottle 00 nostril 2 Medical (NEILMED (two) Branch SINUS RINSE times COMPLETE) daily. Use pkdv in hot shower 1 hour before bedtime promethazin 2018-06 Yes [id number] 5mL Take 5 mL Univers e-codeine 2-20 by mouth 4 ity of 6.25-10 00:00: (four) [place] mg/5 mL 00 times Medical syrup daily as Branch needed for Cough. sod 2018-06- No [id number] 1{bottl Use 1 Univ ers chlor-bicar 2-20 - e} Bottle in it y of b-squeez 00:00: 00:00 each [place] bottle 00 :00 nostril 2 Medical (NEILMED (two) Branch SINUS RINSE times COMPLETE) daily. Use pkdv in hot shower 1 hour before bedtime promethazin 2018-06- No [id number] 5mL Take 5 mL Univers e-codeine 2-20 -07 by mouth 4 ity of 6.25-10 00:00: 00:00 (four) [place] mg/5 mL 00 :00 times Medical syrup daily as Branch needed for Cough. sod 2018-06- No [id number] 1{bottl Use 1 Univ ers chlor-bicar 2-20 - e} Bottle in it y of b-squeez 00:00: 00:00 each [place] bottle 00 :00 nostril 2 Medical (NEILMED (two) Branch SINUS RINSE times COMPLETE) daily. Use pkdv in hot shower 1 hour before bedtime promethazin 2018-06- No [id number] 5mL Take 5 mL Univers e-codeine 2-20 -07 by mouth 4 ity of 6.25-10 00:00: 00:00 (four) [place] mg/5 mL 00 :00 times Medical syrup daily as Branch needed for Cough. traMADol 2018-06 Yes [id number] 50mg Take 1 Univers (ULTRAM) 50 1 [id number] tablet by i ty of mg tablet 00:00: mouth [place] 00 every 8 Medical (eight) Branch hours as needed for Pain (scale 4-6). traMADol 2018-06 Yes [id number] 50mg Take 1 Univers (ULTRAM) 50 - [id number] tablet by i ty of mg tablet 00:00: mouth [place] 00 every 8 Medical (eight) Branch hours as needed for Pain (scale 4-6). traMADol 2018-06 Yes [id number] 50mg Take 1 Univers (ULTRAM) 50 - [id number] tablet by i ty of mg tablet 00:00: mouth [place] 00 every 8 Medical (eight) Branch hours as needed for Pain (scale 4-6). traMADol 2018-06 Yes [id number] 50mg Take 1 Univers (ULTRAM) 50 07-11 [id number] tablet by i ty of mg tablet 00:00: mouth [place] 00 every 8 Medical (eight) Branch hours as needed for Pain (scale 4-6). traMADol 2018-06 Yes [id number] 50mg Take 1 Univers (ULTRAM) 50 - [id number] tablet by i ty of mg tablet 00:00: mouth [place] 00 every 8 Medical (eight) Branch hours as needed for Pain (scale 4-6). traMADol 2018-06- No [id number] 50mg Take 1 Univers (ULTRAM) 50 07-11 [id number] tablet by ity of mg tablet 00:00: 00:00 mouth [place] 00 :00 every 8 Medical (eight) Branch hours as needed for Pain (scale 4-6). traMADol 2018-06- No [id number] 50mg Take 1 Univers (ULTRAM) 50 07-11 [id number] tablet by ity of mg tablet 00:00: 00:00 mouth [place] 00 :00 every 8 Medical (eight) Branch hours as needed for Pain (scale 4-6). traMADol Yes [id number] 50mg Take 1 Univers (ULTRAM) 50 - [id number] tablet by i ty of mg tablet 00:00: mouth [place] 00 every 8 Medical (eight) Branch hours as needed for Pain (scale 4-6). ibuprofen Yes [id number] 600mg Take 1 Univers 600 mg 8- [id number] tablet by ity of tablet 00:00: mouth 4 [place] 00 (four) Medical times Branch daily as needed for Pain (scale 4-6). acetaminoph Yes [id number] 975mg Take 3 Univers en 01-29 [id number] tablets by ity of (TYLENOL) 00:00: mouth 4 [place] 325 mg 00 (four) Medical tablet times Branch daily. This is the maximum safe dose for a healthy adult. ibuprofen 2019- No [id number] 600mg Take 1 Univers 600 mg 01-29 [id number] tablet by ity o f tablet 00:00: 00:00 mouth 4 [place] 00 :00 (four) Medical times Branch daily as needed for Pain (scale 4-6) for up to 5 days. acetaminoph 2018- No [id number] 975mg Take 3 Univers en 01-29 [id number] tablets by ity of (TYLENOL) 00:00: 00:00 mouth 4 [place] 325 mg 00 :00 (four) Medical tablet times Branch daily for 5 days. This is the maximum safe dose for a healthy adult. traMADol 2018- No [id number] 50mg Take 1 Univers (ULTRAM) 50 01-29 [id number] tablet by ity of mg tablet 00:00: 00:00 mouth [place] 00 :00 every 8 Medical (eight) Branch hours as needed for Pain (scale 4-6). medroxyPROG 2017-06 2019- No [id number] 150mg Univers ESTERone 06-26-08 ity of (DEPO-PROVE 22:15: 21:14 [place] RA) 00 :00 Medical injection Branch 150 mg medroxyPROG 2017-06- No [id number] 150mg Univers ESTERone 06-26-08 ity of (DEPO-PROVE [...] 4-6). Immunizations Ordered Filled Immunization Date Status [facility] e Immunization Name Name HPV9 2020-06-27 Completed University of 00:00:00 [facility]9 2020-06-27 Completed University of 00:00:00 [place] [facility] HPV9 2020-06-27 Completed University of 00:00:00 [facility]9 2020-06-27 Completed University of 00:00:00 [facility] 2020-06-27 Completed University of 00:00:00 [facility] HPV9 2020-06-27 Completed University of 00:00:00 [facility] 2020-06-27 Completed University of 00:00:00 [facility] HPV9 2020-06-27 Completed University of 00:00:00 [facility]9 2020-06-27 Completed University of 00:00:00 [facility] Tdap 2017-12-21 Completed University of 00:00:00 [facility] Tdap 2017-12-21 Completed University of 00:00:00 [facility] Tdap 2017-12-21 Completed University of 00:00:00 [facility] Tdap 2017-12-21 Completed University of 00:00:00 [facility] TDAP 2017-12-21 Completed University of 00:00:00 [facility] TDAP 2017-12-21 Completed University of 00:00:00 [facility] TDAP 2017-12-21 Completed University of 00:00:00 [facility] TDAP 2017-12-21 Completed University of 00:00:00 [facility] TDAP 2017-12-21 Completed University of 00:00:00 [facility] TDAP 2017-12-21 Completed University of 00:00:00 [facility] TDAP 2017-12-21 Completed University of 00:00:00 [facility] TDAP 2017-12-21 Completed University of 00:00:00 [facility] TDAP 2017-12-21 Completed University of 00:00:00 [facility] TDAP 2017-12-21 Completed University of 00:00:00 [facility] Tdap 2017-12-21 Completed University of 00:00:00 [facility] Tdap 2017-12-21 Completed University of 00:00:00 [facility] Tdap 2016-07-09 Completed University of 00:00:00 [facility] Tdap 2016-07-09 Completed University of 00:00:00 [facility] Tdap 2016-07-09 Completed University of 00:00:00 [facility] Tdap 2016-07-09 Completed University of 00:00:00 [facility] TDAP 2016-07-09 Completed University of 00:00:00 [facility] TDAP 2016-07-09 Completed University of 00:00:00 [facility] TDAP 2016-07-09 Completed University of 00:00:00 [facility] TDAP 2016-07-09 Completed University of 00:00:00 [facility] TDAP 2016-07-09 Completed University of 00:00:00 [facility] TDAP 2016-07-09 Completed University of 00:00:00 [facility] TDAP 2016-07-09 Completed University of 00:00:00 [facility] TDAP 2016-07-09 Completed University of 00:00:00 [facility] TDAP 2016-07-09 Completed University of 00:00:00 [facility] TDAP 2016-07-09 Completed University of 00:00:00 [facility] Tdap 2016-07-09 Completed University of 00:00:00 [facility] Tdap 2016-07-09 Completed University of 00:00:00 [facility] Influenza Virus 2016-03-25 Completed Universit y of Vaccine Quad IM 3+ 00:00:00 [facility] Influenza Virus 2016-03-25 Completed Universit y of Vaccine Quad IM 3+ 00:00:00 [facility] Influenza Virus 2016-03-25 Completed Universit y of Vaccine Quad IM 3+ 00:00:00 [facility] Influenza Virus 2016-03-25 Completed Universit y of Vaccine Quad IM 3+ 00:00:00 [facility] Influenza Virus 2016-03-25 Completed Universit y of Vaccine Quad IM 3+ 00:00:00 [facility] Influenza Virus 2016-03-25 Completed Universit y of Vaccine Quad IM 3+ 00:00:00 [facility] Influenza Virus 2016-03-25 Completed Universit y of Vaccine Quad IM 3+ 00:00:00 [facility] Influenza Virus 2016-03-25 Completed Universit y of Vaccine Quad IM 3+ 00:00:00 [facility] Influenza Virus 2016-03-25 Completed Universit y of Vaccine Quad IM 3+ 00:00:00 [facility] Influenza Virus 2016-03-25 Completed Universit y of Vaccine Quad IM 3+ 00:00:00 [facility] Influenza Virus 2016-03-25 Completed Universit y of Vaccine Quad IM 3+ 00:00:00 [facility] Influenza Virus 2016-03-25 Completed Universit y of Vaccine Quad IM 3+ 00:00:00 [facility] Influenza Virus 2016-03-25 Completed Universit y of Vaccine [facility] IM 3+ 00:00:00 [facility] Influenza Virus 2016-03-25 Completed Universit y of Vaccine [facility] IM 3+ 00:00:00 [facility] Influenza Virus 2016-03-25 Completed Universit y of Vaccine [facility] IM 3+ 00:00:00 [facility] Influenza Virus 2016-03-25 Completed Universit y of Vaccine Quad IM 3+ 00:00:00 [facility] Vital Signs Vital Name Observation Time Observation Value Comments Source Systolic blood 2021-03-17 06:16:16 119 mm[Hg] Univer sity of pressure [facility] Diastolic blood 2021-03-17 06:16:16 78 mm[Hg] Unive rsity of [facility] Heart rate 2021-03-17 06:16:16 66 /min [facility] Respiratory rate 2021-03-17 06:16:16 18 /min [facility] Oxygen saturation in 2021-03-17 06:16:16 98 /min [facility] Arterial blood by [facility] Pulse oximetry [place] Body temperature 2021-03-17 03:36:00 37.17 Sandhya [facility] Body height 2021-03-17 03:36:00 170.2 cm [facility] Body weight 2021-03-17 03:36:00 101.379 kg [facility] BMI 2021-03-17 03:36:00 35.01 kg/m2 [facility] Systolic blood 2021-02-19 07:32:00 125 mm[Hg] Univer sity of pressure [facility] Diastolic blood 2021-02-19 07:32:00 83 mm[Hg] Unive rsity of pressure [facility] Heart rate 2021-02-19 07:32:00 75 /min [facility] Body temperature 2021-02-19 07:32:00 36.83 Sandhya Univ ersity of [facility] Respiratory rate 2021-02-19 07:32:00 22 /min Univ ersity of [facility] Body weight 2021-02-19 07:32:00 99.791 kg Universi ty of [facility] BMI 2021-02-19 07:32:00 35.51 kg/m2 Universi ty of [facility] Oxygen saturation in 2021-02-19 07:32:00 100 /min University Arterial blood by [facility] Pulse oximetry Branch Systolic blood 2020-06-27 21:28:00 115 mm[Hg] Univer sity of pressure [facility] Diastolic blood 2020-06-27 21:28:00 71 mm[Hg] Unive rsity of pressure [facility] Heart rate 2020-06-27 21:28:00 73 /min Universi ty of [facility] Body temperature 2020-06-27 21:28:00 36.94 Sandhya Univ ersity of [facility] Respiratory rate 2020-06-27 21:28:00 16 /min Univ ersity of [facility] Body height 2020-06-27 21:28:00 167.6 cm Universi ty [facility] [place] [facility] [place] Body weight 2020-06-27 21:28:00 99.565 kg [facility]i ty [facility] BMI 2020-06-27 21:28:00 35.43 kg/m2 [facility]i [facility] [place] [facility] [place] Systolic blood 2020-06-27 21:28:00 115 mm[Hg] Univer sity of pressure [facility] Diastolic blood 2020-06-27 21:28:00 71 mm[Hg] Unive rsity of pressure [facility] Heart rate 2020-06-27 21:28:00 73 /min Universi ty of [facility] [place] Body temperature 2020-06-27 21:28:00 36.94 Sandhya Univ ersity of [facility] Respiratory rate 2020-06-27 21:28:00 16 /min Univ ersity of [facility] Body height 2020-06-27 21:28:00 167.6 cm Universi ty of [facility] Body weight 2020-06-27 21:28:00 99.565 kg [facility]i ty [facility] BMI 2020-06-27 21:28:00 35.43 kg/m2 [facility]i [facility] Systolic blood 2020-03-28 05:38:00 113 mm[Hg] Univer sity of pressure [facility] Diastolic blood 2020-03-28 05:38:00 84 mm[Hg] Unive rsity of pressure [facility] Heart rate 2020-03-28 05:38:00 87 /min Universi ty of [facility] Respiratory rate 2020-03-28 05:38:00 18 /min Univ ersity of [facility] Oxygen saturation in 2020-03-28 05:38:00 100 /min University of Arterial blood by [place] [employer] [facility] Pulse oximetry Branch Body temperature 2020-03-28 00:14:00 37.5 Sandhya Univ ersity of [facility] Body height 2020-03-28 00:14:00 167.6 cm [facility]i ty [facility] Body weight 2020-03-28 00:14:00 90.719 kg [facility]i [facility] BMI 2020-03-28 00:14:00 32.28 kg/m2 [facility] Systolic blood 2019-12-05 08:44:00 105 mm[Hg] Univer sity of pressure [facility] Diastolic blood 2019-12-05 08:44:00 76 mm[Hg] Unive rsity of pressure [facility] Heart rate 2019-12-05 08:44:00 68 /min Universi ty of [facility] Body temperature 2019-12-05 08:44:00 36.22 Sadnhya Univ ersity of [facility] Respiratory rate 2019-12-05 08:44:00 18 /min Univ ersity of [facility] Oxygen saturation in 2019-12-05 08:44:00 100 /min University of Arterial blood by [place] [employer] [facility] Pulse oximetry Branch Body height 2019-12-05 06:33:00 167.6 cm [facility]i [facility] Body weight 2019-12-05 06:33:00 94.348 kg [facility] BMI 2019-12-05 06:33:00 33.57 kg/m2 [facility] Systolic blood 2019-11-16 04:00:00 122 mm[Hg] Univer sity of pressure [facility] Diastolic blood 2019-11-16 04:00:00 78 mm[Hg] Unive rsity of pressure [facility] Heart rate 2019-11-16 04:00:00 65 /min Universi ty of [facility] Respiratory rate 2019-11-16 04:00:00 18 /min Univ ersity of [facility] Oxygen saturation in 2019-11-16 04:00:00 99 /min University of Arterial blood by [facility] Pulse oximetry Branch Body temperature 2019-11-15 23:51:00 37.06 Sandhya Univ ersity of [facility] Body height 2019-11-15 23:51:00 167.6 cm [facility]i ty [facility] Body weight 2019-11-15 23:51:00 94.348 kg [facility] BMI 2019-11-15 23:51:00 33.57 kg/m2 [facility] Systolic blood 2019-10-19 11:00:00 122 mm[Hg] Univer sity of pressure [facility] Diastolic blood 2019-10-19 11:00:00 87 mm[Hg] Unive rsity of pressure [facility] Heart rate 2019-10-19 11:00:00 79 /min Universi ty of [facility] Respiratory rate 2019-10-19 11:00:00 21 /min Univ ersity of [facility] Oxygen saturation in 2019-10-19 11:00:00 100 /min University of Arterial blood by [facility] Pulse oximetry Branch Body temperature 2019-10-19 09:39:00 36.83 Sandhya Univ ersity of [facility] Body height 2019-10-19 09:39:00 167.6 cm [facility]i [facility] Body weight 2019-10-19 09:39:00 95.255 kg [facility] BMI 2019-10-19 09:39:00 33.89 kg/m2 [facility] Systolic blood 2019-08-31 10:00:00 119 mm[Hg] Univer sity of pressure [facility] Diastolic blood 2019-08-31 10:00:00 68 mm[Hg] Unive rsity of pressure [facility] Heart rate 2019-08-31 10:00:00 89 /min Universi ty of [facility] Body temperature 2019-08-31 08:58:00 37.39 Sandhya Univ ersity of [facility] Respiratory rate 2019-08-31 08:58:00 14 /min Univ ersity of [facility] Body height 2019-08-31 08:58:00 167.6 cm [facility] Body weight 2019-08-31 08:58:00 90.719 kg [facility] BMI 2019-08-31 08:58:00 32.28 kg/m2 Universi ty of [facility] Oxygen saturation in 2019-08-31 08:58:00 97 /min University of Arterial blood by [facility] Pulse oximetry Branch Body temperature 2019-01-29 20:06:00 36.94 Sandhya Univ ersity of [facility] Respiratory rate 2019-01-29 20:06:00 18 /min [facility] Body height 2019-01-29 20:06:00 167.6 cm [facility] ty [facility] [place] [facility] [place] Body weight 2019-01-29 20:06:00 87 kg [facility] [place] [facility] [place] BMI 2019-01-29 20:06:00 30.96 kg/m2 Universi ty of [facility] Oxygen saturation in 2019-01-29 20:06:00 98 /min University of Arterial blood by [facility] Pulse oximetry Branch Systolic blood 2019-01-29 20:06:00 126 mm[Hg] Univer sity of pressure [facility] Diastolic blood 2019-01-29 20:06:00 78 mm[Hg] [facility] rsohiohealth of pressure [facility] Heart rate 2019-01-29 20:06:00 75 /min Universi ty of [facility] Procedures Procedure Date / Time Performing Clinician Source Performed XR FOREARM 2 VW RIGHT 2021-03-17 04:50:31 Sam Kemp [facility] XR HAND 3+ VW RIGHT 2021-03-17 04:19:27 [facility] CONSENT/REFUSAL FOR 2021-03-17 03:27:16 Doctor Unassigned, No Un [facility] [place] DIAGNOSIS AND TREATMENT Name [facility] NOTICE OF PRIVACY 2021-02-19 07:22:51 Doctor Unassigned, No [facility] CONSENT/REFUSAL FOR 2021-02-19 07:22:35 Doctor Unassigned, No Un iversity [facility] DIAGNOSIS AND TREATMENT [facility] POCT TEST 2020-06-27 22:14:00 Wilbert Willoughby [facility]atal[facility] HIV 1/2 AG-AB WITH 2020-06-27 22:13:00 Wilbert Willoughby [facility] REFLEX [facility] GARDASIL 9 (HPV 9V) 2020-06-27 22:00:47 Wilbert Willoughby [facility] VACCINE [facility] CT ABDOMEN PELVIS WO 2020-03-28 03:42:05 Sam Kemp [facility] CONTRAST [facility] US GALL BLADDER 2020-03-28 03:06:15 Salvatore [facility] LIPASE 2020-03-28 01:18:00 Salvatore [facility] MAGNESIUM 2020-03-28 01:18:00 Salvatore [facility] COMP. METABOLIC PANEL 2020-03-28 01:18:00 Sam Kemp [place] [facility] ([id number]) Medical Branch CBC WITH DIFF 2020-03-28 01:18:00 Salvatore [facility] URINALYSIS 2020-03-28 01:18:00 Salvatore [facility] COVID-19 (ID NOW RAPID 2020-03-28 01:18:00 Sam Kemp [place] [facility] TESTING) Medical [place] POCT TEST 2020-03-28 01:17:00 Sam Kemp [facility] CONSENT/REFUSAL FOR 2020-03-28 00:05:35 Doctor Unassigned, No Un [facility] DIAGNOSIS AND TREATMENT Name Medical Branch US GALL BLADDER 2019-12-05 07:51:00 Radha Grider [facility] COVID-19 (ID NOW RAPID 2019-12-05 07:03:00 Radha Grider [facility] TESTING) Medical Branch LIPASE 2019-12-05 06:37:00 Radha Grider [facility] TEST, SERUM 2019-12-05 06:37:00 Radha Grider [facility] HEPATIC FUNCTION PANEL 2019-12-05 06:37:00 Radha Grider [facility] ([id number]) (ALB,T.PRO,BILI Medical Branch T,BU/BC,ALT,AST,ALK PHOS) BASIC METABOLIC PANEL 2019-12-05 06:37:00 Shruthi [facility] (NA, K, CL, CO2, Medical Branch GLUCOSE, BUN, CREATININE, CA) CBC WITH DIFFERENTIAL 2019-12-05 06:37:00 Shruthi [facility] URINALYSIS 2019-12-05 06:37:00 Shruthi [facility] NOTICE OF PRIVACY 2019-12-05 06:13:37 Doctor Unassigned, No [facility] PRACTICES Name [facility] CONSENT/REFUSAL FOR 2019-12-05 06:13:05 Doctor Unassigned, No [facility] Name [facility] CT ABDOMEN PELVIS WO 2019-11-16 04:00:55 Sam Kemp [facility] CONTRAST [facility] POCT TEST 2019-11-16 03:26:00 Sam Kemp [facility] US GALL BLADDER 2019-11-16 02:38:[address] [facility] XR CHEST 1 VW 2019-11-16 01:09:[address] [facility] PROTHROMBIN TIME / INR 2019-11-16 00:24:00 Ian Greene [facility] ACTIVATED PARTIAL 2019-11-16 00:24:00 Ian Greene [facility] THRMPLAS KEESHA [facility] LIPASE 2019-11-16 00:21:[address] [facility] TROPONIN I 2019-11-16 00:21:[address] [facility] COMP. METABOLIC PANEL 2019-11-16 00:21:00 Ian Greene [facility] ([id number]) Medical Branch CBC WITH DIFFERENTIAL 2019-11-16 00:21:00 Ian Greene [facility] EKG-12 LEAD 2019-11-16 00:13:[address] [facility] CONSENT/REFUSAL FOR 2019-11-15 23:43:02 Doctor Unassigned, No [facility] Name Medical Branch XR CHEST 1 VW 2019-10-19 10:55:[address] [facility] CORONAVIRUS COVID-19 2019-10-19 10:25:00 Luisa Luna [facility] TESTING [facility] POCT TEST 2019-10-19 10:18:00 Luisa Luna [facility] LIPASE 2019-10-19 10:17:[address] [facility] TROPONIN I 2019-10-19 10:17:[address] [facility] COMP. METABOLIC PANEL 2019-10-19 10:17:00 Luisa Luna [facility] ([id number]) [facility] CBC WITH DIFFERENTIAL 2019-10-19 10:17:00 Luisa Luna [facility] URINALYSIS 2019-10-19 10:17:[address] [facility] EKG-12 LEAD 2019-10-19 09:42:[address] [facility] XR CHEST 1 VW 2019-08-31 09:14:[address] [facility] RAPID STREP SCREEN FOR 2019-08-31 09:08:00 Jessica Bob [facility] GROUP A [facility] ADC,CLC OR LCC ONLY - 2019-08-31 09:08:00 Jessica Bob [facility] INFLUENZA A & B DIRECT Medical [place] [facility] [place] NOTICE OF PRIVACY 2019-08-31 08:52:15 Doctor Unassigned, No [facility] PRACTICES Name Medical Branch CONSENT/REFUSAL FOR 2019-08-31 08:51:56 Doctor Unassigned, [facility] DI[facility]NOSIS AND TREATMENT Name Medical Branch XR FOREARM 2 VW RIGHT 2019-01-29 20:53:12 Manan Arce [facility] XR HAND 3+ VW RIGHT 2019-01-29 20:53:12 Manan Arce [facility] ED ORTHOPEDIC INJURY 2019-01-29 19:59:18 Manan Arce [facility] TREATMENT - UPPER [facility] EXTREMITY NOTICE OF PRIVACY 2019-01-29 19:47:11 Doctor Unassigned, No [facility] Name [facility] CONSENT/REFUSAL FOR 2019-01-29 19:46:56 Doctor Unassigned, No Un [facility] DIAGNOSIS AND TREATMENT Name [facility] Encounters Start End Encounter Admission Attending Care Care Encounter Source Date/Time Date/Time Type Type Clinicians Facility Department ID 2021-04-22 Emergency [facility] [id number] Univers 01:27:59 ity [facility] 2021-04-21 Emergency [facility] [id number] Univers 19:32:10 ity of [facility] 2021-04-18 Emergency [facility] [id number] Univers 21:43[facility]36 [facility] 2021-03-21 2021-03-21 Outpatient Alannah PILLAI [facility] [id number] Univers 14:45:00 14:45:00 PETE [id number] saqiby o f [facility] 2021-03-21 2021-03-21 Outpatient R ROMAN [facility] [id number] Univers 14:45:00 14:45:00 PETE maldonado o f [facility] 2021-03-20 2021-03-20 [facility] [id number] Univers 00:00:00 00:00:00 Pete Piedra ULTRASONOGRAPHER [id number] ity [facility] [id number] Rodney as MATERNAL [phone] [facility] ical & CHILD [address] [place] [address] 2021-03-19 2021-03-19 Outpatient Alannah BENAVIDEZ [facility] [id number] Univers 14:45:00 14:45:00 JAMIE [id number] [facility] 2021-03-19 2021-03-19 Outpatient Alannah BENAVIDEZ [facility] [id number] Univers 14:45:00 14:45:00 JAMIE maldonado [facility] 2021-03-18 2021-03-18 Outpatient Alannah BENAVIDEZ [facility] [id number] Univers 15:15:00 15:15:00 JAMIE [id number] [facility] 2021-03-18 2021-03-18 [facility] [id number] Univers 15:15:00 15:15:00 JAMIE ity of [facility] 2021-03-16 2021-03-17 Emergency Sam Kemp [facility] [id number] Univers 22:39:00 01:20:00 Salina Aiken [id number] i ty [facility] [place] [id number] [facility] [phone] [place] [id number] [place] 2021-02-20 2021-02-20 Telephone Demterio Lara [place] [id number] Univers 00:00:00 00:00:00 FAUSTO [id number] it y of [facility] [id number] Rodney [phone] [facility] 019 Branch 2021-02-19 2021-02-19 Emergency [facility] [id number] Univers 02:37:00 03:44:00 Joanne Aiken [id number] ity of [place] [id number] [facility] [id number] [place] [id number] [place] 2020-09-10 2020-09-10 [facility] [id number] 00:00:00 00:00:00 Outreach Juan PRIMARY [id number] [place] CARE [id number] PAVILLION [id number] 2020-09-10 2020-09-10 [facility] [id number] Univers 00:00:00 00:00:00 Outreach Juan PRIMARY [id number] i ty of [place] [id number] [place] [id number] Nm dical 388 [place] 2020-08-27 2020-08-27 Outpatient R [facility] [id number] Univers 10:30:00 10:30:00 [id number] ity [facility] 2020-08-27 2020-08-27 [facility] [id number] Univers 10:30:00 10:30:00 ROSSTEPHENNDA ity o f [facility] 2020-08-26 2020-08-26 Outpatient R [facility] [id number] Univers 13:30:00 13:30:00 [id number] ity [facility] 2020-08-26 2020-08-26 Outpatient R [facility] [id number] Univers 13:30:00 13:30:00 ity [facility] 2020-07-11 2020-07-11 Outpatient R CASE [facility] [id number] Univers 13:15:00 13:15:00 ROSNDA [id number] ity o [facility] 2020-07-11 2020-07-11 Outpatient R WILLOUGHBY, [facility] [id number] Univers 13:15:00 13:15:00 GRANTNDA ity o [facility] 2020-06-27 2020-06-27 Office [facility] [id number] Univers 15:21:42 16:19:38 Visit Myrandaemile R ULTRASONOGRAPHER [id number] [facility] [id number] Rodney as MATERNAL [id number] Med ical & CHILD [address] [place] [address] 2020-06-27 2020-06-27 Office [facility] [id number] 15:21:42 16:19:38 [facility] ULTRASONOGRAPHER [id number] [facility] [id number] MATERNAL [phone] & CHILD 107 [facility] 2020-06-27 2020-06-27 Outpatient R WILLOUGHBY, [facility] [id number] Univers 15:30:00 15:30:00 ROSHUNDA [id number] ity o [facility] 2020-06-27 2020-06-27 Outpatient R WILLOUGHBY, [facility] [id number] Univers 15:30:00 15:30:00 ROSSTEPHENNDA ity o [facility] 2020-06-05 2020-06-05 Outpatient WILLOUGHBY, [facility] [id number] Univers 15:15:00 15:15:00 ROSSTEPHENNDA [id number] ity o f [facility] 2020-06-05 2020-06-05 Outpatient R CASE [facility] [id number] Univers 15:15:00 15:15:00 WILBERT ity o f [facility] 2020-03-27 2020-03-28 Emergency Sam Kemp [facility] [id number] Univers 19:22:00 00:39:00 Salina Aiken [id number] i ty [place] [id number] [facility] [id number] [address] 2019-12-05 2019-12-05 Emergency Shruthi [facility] [id number] Univers 01:22:11 03:48:00 Radha Aiken [id number] ity of [place] [id number] [facility] [id number] [address] 2019-12-05 2019-12-05 Emergency [facility] ERT [id number] Univers 01:22:11 03:48:00 RADHA maldonado [facility] 2019-11-15 2019-11-16 Emergency Sam Kemp [facility] [id number] Univers 19:21:57 00:00:00 Salina Aiken [id number] i ty of [place] [id number] [facility] [id number] [address] 2019-11-15 2019-11-16 Emergency X Sam KEMP [facility] ERT [id number] Univers 19:21:57 00:00:00 ity of [facility] 2019-10-19 2019-10-19 Emergency Anil [facility] [id number] Univers 04:35:17 06:17:00 Luisa Aiken [id number] i ty of [place] [id number] [facility] [id number] [address] 2019-10-19 2019-10-19 Emergency [facility] E[facility] [id number] Univers 04:35:17 06:17:00 LUISA maldonado [facility] 2019-08-31 2019-08-31 Emergency [facility] [id number] Univers 03:53:07 05:03:00 Jessica Aiken [id number] i ty of [place] [id number] [facility] [facility] [id number] [address] 2019-08-31 2019-08-31 Emergency X PAULINO, [facility] ERT [id number] [facility] 03:53:07 05:03:00 JESSICA maldonado [facility] 2019-06-09 2019-06-09 Emergency X BETO III, [facility] ERT [id number] Univers 16:17:18 19:21:00 MANAN maldonado [facility] 2019-01-29 2019-01-29 Emergency Beto [facility] [id number] Univers 15:09:14 18:22:00 Manan Aiken 350.1.13.10 i ty of [place] 4.2.7.2.686 [facility] [id number] [address] 2019-01-29 2019-01-29 Orders Doctor BRONWYN [id number] Univers 00:00:00 00:00:00 Only Unassigned, FAUSTO 350.1.13.10 ity of [place] [facility] 4.2.7.2.686 [facility] [phone] [address] Results Test Description Test Time Test Comments Results Result Comments Source HIV 1/2 AG-AB WITH REFLEX 2020-06-28 07:10:00 Test Item Value Reference Range Interpretation Comme nts HIV Semi-quantitative (test code = Negative Negative 32012-6) MARCELINO (test code = MARCELINO) Non-reactive for HIV-1 antigen and HIV-1/HIV-2 antibodies. ?No laboratory evidence of HIV infection. ?Repeat in 2-4 weeks if acute HIV infection is suspected. [facility] WITH [id number] 07:10:00 Test Item Value Reference Range Interpretation Comments HIV Negative Negative Semi-quantitative (test code = 81269-0) MARCELINO (test code = Non-reactive for HIV-1 MARCELINO) antigen and HIV-1/HIV-2 antibodies. ?No laboratory evidence of HIV infection. ?Repeat in 2-4 weeks if acute HIV infection is suspected. [facility] [id number] 22:15:00 Test Item Value Reference Range Interpretation Comments POCT PREG (test code = 1605) Negative On board controls acceptable with C Yes Line (test code = 3574) POCT PREG LOT # (test code = 3575) POCT PREG TEST DATE (test code = 3576) [facility] [id number] 22:15:00 Test Item Value Reference Range Interpretation Comments POCT PREG (test code = 1605) Negative On board controls acceptable with C Yes Line (test code = 3574) POCT PREG LOT # (test code = 3575) POCT PREG TEST DATE (test code = 3576) [facility] ABDOMEN PELVIS WO [id number] 05:11:45 No acute intra-abdominal or pelvic findings. [...] reviewed this study and agree with theabove report.[facility] WITH DIFF 2020-03-28 02:09:00 Test Item Value [...] RDW-SD (test code = 45.4 fL 39-49.9 76535-0) RDW-CV (test code = 14.1 % 12-15.5 788-0) PLT (test code = See_Comment [Automated 777-3) message] The sy stem which generated this result transmitted reference range : 166 - 358 10*3/ ?L. The reference r renee was not used to interpret this result as normal/abnormal . MPV (test code = 10.1 fL 9.5-12.9 57286-0) NRBC/100 WBC (test See_Comment [Automat ed code = 3184941047) message] The system which generated this result transmitted reference range : 0.0 - 10.0 /100 WBCs. The refer ence range was not u sed to interpret th is result as normal/abnormal . NRBC x10^3 (test code <0.01 See_Comment [Auto mated = 1458264547) message] The s ystem which generated this result transmitted reference range : 10*3/?L. The reference range was not used to interpret this result as normal/abnormal . GRAN MAT (NEUT) % 56.3 % (test code = 770-8) IMM GRAN % (test code 0.90 % = 5528574612) LYMPH % (test code = 31.9 % 736-9) MONO % (test code = 9.5 % 5905-5) EOS % (test code = 0.5 % 713-8) BASO % (test code = 0.9 % 706-2) GRAN MAT x10^3(ANC) 2.44 10*3/uL 1.88-7.09 (test code = 7762407365) IMM GRAN x10^3 (test 0.04 10*3/uL 0-0.06 code = 0952460739) LYMPH x10^3 (test code 1.38 10*3/uL 1.32-3.29 = 731-0) MONO x10^3 (test code 0.41 10*3/uL 0.33-0.92 = 742-7) EOS x10^3 (test code = <0.03 0.03-0.39 L 711-2) BASO x10^3 (test code 0.04 10*3/uL 0.01-0.07 = 704-7) BANDS (test code = Increased A 0781453835) REACT LYMPHS (test Rare code = 3896386032) Lab Interpretation Abnormal (test code = 76723-0) [facility] 02:04:00 Test Item Value Reference Range Interpretation Comments APPEARANCE (test code = Clear Clear 8824120833) COLOR (test code = Yellow Yellow 5740583685) PH (test code = 4.8-8.0 2405781255) SP GRAVITY (test code = 1.003-1.030 7246491949) GLU U QUAL (test code = Normal Normal 6568272759) BLOOD (test code = Negative Negative 1239467911) KETONES (test code = Negative Negative 6721687549) PROTEIN (test code = Negative Negative 2887-8) UROBILIN (test code = Normal Normal 2020182991) BILIRUBIN (test code = Negative Negative 6022573181) NITRITE (test code = Negative Negative 3372168121) LEUK GABBY (test code = Negative Negative 1017651174) RBC/HPF (test code = See_Comment [Autom ated message] 6320841885) The system Panelfly generated this result transmitted ref erence range: 0 - 3 HP F. The reference range was not used to int erpret this result as normal/abnormal . WBC/HPF (test code = See_Comment [Autom ated message] 1015965022) The system Panelf[employer] generated this result transmitted ref erence range: 0 - 5 HP F. The reference range was not used to int erpret this result as normal/abnormal . BACTERIA (test code = Few Negative A 9798370515) MUCOUS (test code = Slight Negative LPF A 6853727539) SQ EPITH (test code = HPF 9153067128) Lab Interpretation (test Abnormal code = 15102-6) [facility] (ID NOW RAPID TESTING)2020-03-28 01:54:00 Test Item Value Reference Range Interpretation Comments SARS-CoV-2 Rapid ID NOW Not Detected Not Detected (test code = 43429-5) MARCELINO (test code = MARCELINO) ID NOW COVID-19 Assay is an isothermal nucleic acid amplification test intended for the qualitative detection of nucleic acid from SARS-CoV-2 viral RNA in nasopharyngeal (CORPORATE 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 It is used under Emergency Use [...] indicated. Lab Interpretation Normal (test code = 40936-5) [facility]. METABOLIC PANEL (39894)2020-03-28 01:44:00 Test Item Value Reference Range Interpretation Comments NA (test code = 136 mmol/L 135-145 4965089515) K (test code = 3.9 mmol/L 3.5-5 4420161652) CL (test code = 97 mmol/L 98-108 L 0820350896) CO2 TOTAL (test code = 30 mmol/L 23-31 5046711965) AGAP (test code = 2-16 4155477882) BUN (test code = 7 mg/dL 7-23 3887907201) GLUCOSE (test code = 92 mg/dL 70-110 7848059961) CREATININE (test code = 0.63 mg/dL 0.5-1.04 4130613845) TOTAL BILI (test code = 0.5 mg/dL 0.1-1.9 4981922306) CALCIUM (test code = 9.6 mg/dL 8.6-10.6 0788628552) T PROTEIN (test code = 8.3 g/dL 6.3-8.2 H 9699608843) ALBUMIN (test code = 4.4 g/dL 3.5-5 7421585686) ALK PHOS (test code = 113 U/L 34-122 2867600365) ALTv (test code = 75 U/L 5-35 H 1742-6) AST(SGOT) (test code = 52 U/L 13-40 H 6749354434) eGFR Calculation mL/min/1.73m2 (Non-) (test code = 7323904862) eGFR Calculation mL/min/1.73m2 () (test code = 4792003260) MARCELINO (test code = MARCELINO) Association of [...] tests). Lab Interpretation Abnormal (test code = 27267-0) [facility]2020-[facility] 01:44:00 Test Item Value Reference Range Interpretation Comments LIPASE (test code = 9107803634) 88 U/L 0-220 Lab Interpretation (test code = Normal 69567-1) [facility]MAGNESIUM2020-10-08 01:44:00 Test Item Value Reference Range Interpretation Comments MAGNESIUM (test code = 8937119426) 2.1 mg/dL 1.7-2.4 Lab Interpretation (test code = Normal 03208-1) [facility] [id number] 01:17:00 Test Item Value Reference Range Interpretation Comments POCT PREG (test code = 1605) Negative On board controls acceptable with Present C Line (test code = 3574) POCT PREG LOT # (test code = 3575) [id number] POCT PREG TEST DATE (test 02/18/2021 code = 3576) Lab Interpretation (test code = Normal 08058-1) [facility] (ID NOW RAPID TESTING)2019-12-05 07:32:00 Test Item Value Reference Range Interpretation Comments SARS-CoV-2 Rapid ID NOW Not Detected Not Detected (test code = 52808-9) MARCELINO (test code = MARCELINO) ID NOW COVID-19 Assay is an isothermal nucleic acid amplification test intended for the qualitative detection of nucleic acid from SARS-CoV-2 viral RNA in nasopharyngeal (CORPORATE 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 It is used under Emergency Use [...] indicated. Lab Interpretation Normal (test code = 36317-3) [facility] Metabolic Panel (NA, K, CL, CO2, GLUCOSE, BUN, CREATININE, CA)2019-12-05 07:04:00 Test Item Value Reference Range Interpretation Comments NA (test code = 140 mmol/L 135-145 8385218297) K (test code = 3.9 mmol/L 3.5-5 1880479462) CL (test code = 102 mmol/L 98-108 0711710159) CO2 TOTAL (test code = 30 mmol/L 23-31 7847672033) AGAP (test code = 2-16 1371540845) BUN (test code = 10 mg/dL 7-23 2082110948) GLUCOSE (test code = 91 mg/dL 70-110 1194773064) CREATININE (test code 0.67 mg/dL 0.5-1.04 = 3332917034) CALCIUM (test code = 9.7 mg/dL 8.6-10.6 9021672396) eGFR Calculation mL/min/1.73m2 (Non-) (test code = 4265732017) eGFR Calculation mL/min/1.73m2 () (test code = 6997446504) MARCELINO (test code = MARCELINO) Association of [...] or urine or abnormalities in imaging tests). [facility] (ALB, T.PRO, BILI T, BU/BC, ALT, AST, ALK PHOS)2019-12-05 07:04:00 Test Item Value Reference Range Interpretation Comments TOTAL BILI (test code = 4724756680) 0.3 mg/dL 0.1-1.1 BILI UNCON (test code = 5652899018) 0.4 mg/dL 0.1-1.1 BILI CONJ (test code = 4065066374) 0.0 mg/dL 0-0.3 T PROTEIN (test code = 9485830770) 8.7 g/dL 6.3-8.2 H ALBUMIN (test code = 7024909446) 4.8 g/dL 3.5-5 ALK PHOS (test code = 2970436433) 110 U/L 34-122 ALTv (test code = 1742-6) 20 U/L 5-35 AST(SGOT) (test code = 8346578706) 24 U/L 13-40 Lab Interpretation (test code = Abnormal 37085-0) [facility] HospitalLipase [id number] 07:04:00 Test Item Value Reference Range Interpretation Comments LIPASE (test code = 9609223243) 117 U/L 0-220 Lab Interpretation (test code = Normal 96342-8) [facility] HospitalPregnancy Test, [id number] 07:00:00 Test Item Value Reference Range Interpretation Comments PREG SERUM (test code Negative = 7361685936) MARCELINO (test code = MARCELINO) Less than 10 IU/L. ?If low titer or ectopic is suspected, resubmit specimen in 48-72 hours. [facility] HospitalUrinalysis2020-06-16 06:55:00 Test Item Value Reference Range Interpretation Comments APPEARANCE (test code = Clear Clear 2681512604) COLOR (test code = Straw Yellow A 3846811428) PH (test code = 4.8-8.0 9314134727) SP GRAVITY (test code = 1.003-1.030 4282071979) GLU U QUAL (test code = Normal Normal 0838889343) BLOOD (test code = Negative Negative 7886584479) KETONES (test code = Negative Negative 0558037595) PROTEIN (test code = Negative Negative 2887-8) UROBILIN (test code = Normal Normal 1320477571) BILIRUBIN (test code = Negative Negative 7177827991) NITRITE (test code = Negative Negative 3260627216) LEUK GABBY (test code = Negative Negative 7299030005) RBC/HPF (test code = See_Comment [Autom ated message] 9877954498) The system Panelf[employer] generated this result transmitted ref erence range: 0 - 3 HP F. The reference range was not used to int erpret this result as normal/abnormal . WBC/HPF (test code = See_Comment [Autom ated message] 8507028035) The system Panelf[employer] generated this result transmitted ref erence range: 0 - 5 HP F. The reference range was not used to int erpret this result as normal/abnormal . BACTERIA (test code = Negative Negative 6363934273) MUCOUS (test code = Slight Negative LPF A 1207142708) SQ EPITH (test code = HPF 8177022803) Lab Interpretation (test Abnormal code = 55091-9) [facility] HospitalCB WITH [id number] 06:47:00 Test Item Value Reference Range Interpretation Comments WBC (test code = See_Comment [Automated 2837-2) message] The sy stem which generated this result transmitted reference range : 4.30 - 11.10 10*3/?L. The reference range was not used to interpret this result as normal/abnormal . RBC (test code = See_Comment [Automated 009-8) message] The sy stem which generated this [...] RDW-SD (test code = 42.7 fL 39-49.9 41582-0) RDW-CV (test code = 13.0 % 12-15.5 788-0) PLT (test code = See_Comment H [Automated 777-3) message] The sy stem which generated this result transmitted reference range : 166 - 358 10*3/ ?L. The reference r renee was not used to interpret this result as normal/abnormal . MPV (test code = 10.0 fL 9.5-12.9 60625-3) NRBC/100 WBC (test See_Comment [Automat ed code = 5097410668) message] The system which generated this result transmitted reference range : 0.0 - 10.0 /100 WBCs. The refer ence range was not u sed to interpret th is result as normal/abnormal . NRBC x10^3 (test code <0.01 See_Comment [Auto mated = 7825094558) message] The s ystem which generated this result transmitted reference range : 10*3/?L. The reference range was not used to interpret this result as normal/abnormal . GRAN MAT (NEUT) % 65.1 % (test code = 770-8) IMM GRAN % (test code 0.30 % = 7534626331) LYMPH % (test code = 22.5 % 736-9) MONO % (test code = 8.2 % 5905-5) EOS % (test code = 3.4 % 713-8) BASO % (test code = 0.5 % 706-2) GRAN MAT x10^3(ANC) 5.71 10*3/uL 1.88-7.09 (test code = 3138929755) IMM GRAN x10^3 (test 0.03 10*3/uL 0-0.06 code = 9592843845) LYMPH x10^3 (test code 1.97 10*3/uL 1.32-3.29 = 731-0) MONO x10^3 (test code 0.72 10*3/uL 0.33-0.92 = 742-7) EOS x10^3 (test code = 0.30 10*3/uL 0.03-0.39 711-2) BASO x10^3 (test code 0.04 10*3/uL 0.01-0.07 = 704-7) Lab Interpretation Abnormal (test code = 44529-0) [facility]PO[facility] [id number] 03:26:00 Test Item Value Reference Range Interpretation Comments POCT PREG (test code = 1605) Negative On board controls acceptable with Present C Line (test code = 3574) POCT PREG LOT # (test code = 3575) [id number] POCT PREG TEST DATE (test 01/18/2021 code = 3576) Lab Interpretation (test code = Normal 18843-5) [facility] HospitalUS GALL [id number] 02:48:50 Gallbladder hydrops and cholelithiasis without sonographic [...] visualized portions of the pancreas are normal. [facility], Radiant Results Inft User - 11/15/2019 9:50 [...] acute cholecystitis.Preliminary Report Dictated by Resident: Cipriano Khan MD., have reviewed this study and agree withthe above report.[facility] HospitalTRB[facility] HOSPITALFREDDIE I 2019-11-16 01:18:00 Test Item Value Reference Range Interpretation Comments TROPONIN I (test <0.012 See_Comment [Automated code = 0727066140) message] The system which generated this result [...] ? Lab Interpretation Normal (test code = 15479-2) [facility]. METABOLIC PANEL (53170)2019-11-16 01:07:00 Test Item Value Reference Range Interpretation Comments NA (test code = 140 mmol/L 135-145 0541583968) K (test code = 4.2 mmol/L 3.5-5 5250465946) CL (test code = 101 mmol/L 98-108 1958514647) CO2 TOTAL (test code = 29 mmol/L 23-31 3225968954) AGAP (test code = 2-16 6436625030) BUN (test code = 11 mg/dL 7-23 7562653844) GLUCOSE (test code = 101 mg/dL 70-110 0643817074) CREATININE (test code 0.50 mg/dL 0.5-1.04 = 2614989016) TOTAL BILI (test code 0.1 mg/dL 0.1-1.1 = 1608004569) CALCIUM (test code = 9.4 mg/dL 8.6-10.6 0956001449) T PROTEIN (test code = 7.8 g/dL 6.3-8.2 2139439577) ALBUMIN (test code = 4.4 g/dL 3.5-5 5930572914) ALK PHOS (test code = 88 U/L 34-122 1867710070) ALTv (test code = 25 U/L 5-35 1742-6) AST(SGOT) (test code = 25 U/L 13-40 1055131356) eGFR Calculation mL/min/1.73m2 (Non-) (test code = 0165441451) eGFR Calculation mL/min/1.73m2 () (test code = 7298964879) MARCELINO (test code = MARCELINO) Association of [...] or urine or abnormalities in imaging tests). [facility] HospitalLIPASE, [id number] 01:07:00 Test Item Value Reference Range Interpretation Comments LIPASE (test code = 4146321621) 109 U/L 0-220 Lab Interpretation (test code = Normal 86383-8) [facility] HospitalPROTHROMBIN TIME / [id number] 01:07:00 Test Item Value Reference Range Interpretation Comments PROTIME PATIENT (test See_Comment L [Auto mated message] code = 5964-2) The system langtaojin generated this result transmitted ref erence range: 12.0 - 1 4.7 Seconds. The reference range was not used to int erpret this result as normal/abnormal . INR (test code = 6301-6) Nor mal INR <1.1; Warfarin Therap eutic range 2.0 to 3. 0 or 2.5 to 3.5, dep ending upon the indica tions. Lab Interpretation (test Abnormal code = 74929-1) [facility] HospitalaPTT2020-05-28 01:05:00 Test Item Value Reference Range Interpretation Comments APTT Patient (test See_Comment [Automat ed code = 3173-2) message] The system which generated this result transmitted reference range : 23 - 38 Seconds . The reference range was not used to interpr et this result as normal/abnormal . MARCELINO (test code = MARCELINO) The [facility] patient population mean normal value for aPTT is 30 seconds. Lab Interpretation Normal (test code = 37127-0) [facility] WITH [id number] 00:48:00 Test Item Value Reference Range Interpretation [...] RDW-SD (test code = 43.6 fL 39-49.9 49620-3) RDW-CV (test code = 13.1 % 12-15.5 788-0) PLT (test code = See_Comment H [Automated 777-3) message] The sy stem which generated this result transmitted reference range : 166 - 358 10*3/ ?L. The reference r renee was not used to interpret this result as normal/abnormal . MPV (test code = 10.4 fL 9.5-12.9 74753-9) NRBC/100 WBC (test See_Comment [Automat ed code = 3526783053) message] The system which generated this result transmitted reference range : 0.0 - 10.0 /100 WBCs. The refer ence range was not u sed to interpret th is result as normal/abnormal . NRBC x10^3 (test code <0.01 See_Comment [Auto mated = 8675471725) message] The s ystem which generated this result transmitted reference range : 10*3/?L. The reference range was not used to interpret this result as normal/abnormal . GRAN MAT (NEUT) % 62.6 % (test code = 770-8) IMM GRAN % (test code 0.60 % = 7308311562) LYMPH % (test code = 24.0 % 736-9) MONO % (test code = 8.1 % 5905-5) EOS % (test code = 4.1 % 713-8) BASO % (test code = 0.6 % 706-2) GRAN MAT x10^3(ANC) 4.86 10*3/uL 1.88-7.09 (test code = 1703559522) IMM GRAN x10^3 (test 0.05 10*3/uL 0-0.06 code = 6174160239) LYMPH x10^3 (test code 1.87 10*3/uL 1.32-3.29 = 731-0) MONO x10^3 (test code 0.63 10*3/uL 0.33-0.92 = 742-7) EOS x10^3 (test code = 0.32 10*3/uL 0.03-0.39 711-2) BASO x10^3 (test code 0.05 10*3/uL 0.01-0.07 = 704-7) Lab Interpretation Abnormal (test code = 52124-7) [facility] [id number] 11:05:00 Test Item Value Reference Range Interpretation Comments TROPONIN I (test <0.012 See_Comment [Automated code = 9872332117) message] The system which generated this result [...] ? Lab Interpretation Normal (test code = 30446-7) [facility]CORONAVIRUS COVID-19 [id number] 11:04:00 Test Item Value Reference Range Interpretation Comments SARS-CoV-2 (test code = Not Detected Not Detected 85522-5) MARCELINO (test code = MARCELINO) ID NOW COVID-19 Assay is an isothermal nucleic acid amplification test intended for the qualitative detection of nucleic acid from SARS-CoV-2 viral RNA in nasopharyngeal (CORPORATE 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 It is used under Emergency Use [...] indicated. Lab Interpretation Normal (test code = 74478-0) [facility] WITH [id number] 10:59:00 Test Item Value Reference Range Interpretation [...] RDW-SD (test code = 44.3 fL 39-49.9 45901-6) RDW-CV (test code = 13.2 % 12-15.5 788-0) PLT (test code = See_Comment [Automated 777-3) message] The sy stem which generated this result transmitted reference range : 166 - 358 10*3/ ?L. The reference r renee was not used to interpret this result as normal/abnormal . MPV (test code = 10.6 fL 9.5-12.9 58180-2) NRBC/100 WBC (test See_Comment [Automat ed code = 6475728808) message] The system which generated this result transmitted reference range : 0.0 - 10.0 /100 WBCs. The refer ence range was not u sed to interpret th is result as normal/abnormal . NRBC x10^3 (test code <0.01 See_Comment [Auto mated = 0123947783) message] The s ystem which generated this result transmitted reference range : 10*3/?L. The reference range was not used to interpret this result as normal/abnormal . GRAN MAT (NEUT) % 68.9 % (test code = 770-8) IMM GRAN % (test code 0.30 % = 5040711401) LYMPH % (test code = 21.3 % 736-9) MONO % (test code = 6.4 % 5905-5) EOS % (test code = 2.5 % 713-8) BASO % (test code = 0.6 % 706-2) GRAN MAT x10^3(ANC) 6.96 10*3/uL 1.88-7.09 (test code = 6100746652) IMM GRAN x10^3 (test 0.03 10*3/uL 0-0.06 code = 4865500570) LYMPH x10^3 (test code 2.15 10*3/uL 1.32-3.29 = 731-0) MONO x10^3 (test code 0.65 10*3/uL 0.33-0.92 = 742-7) EOS x10^3 (test code = 0.25 10*3/uL 0.03-0.39 711-2) BASO x10^3 (test code 0.06 10*3/uL 0.01-0.07 = 704-7) Lab Interpretation Abnormal (test code = 78336-2) [facility]URINALYSIS2020-04-30 10:58:00 Test Item Value Reference Range Interpretation Comments APPEARANCE (test code = Hazy Clear A 8918080494) COLOR (test code = Yellow Yellow 6400129939) PH (test code = 4.8-8.0 9458676636) SP GRAVITY (test code = 1.003-1.030 3241635352) GLU U QUAL (test code = Normal Normal 9377328233) BLOOD (test code = Negative Negative 1364676481) KETONES (test code = Negative Negative 7057449249) PROTEIN (test code = Negative Negative 2887-8) UROBILIN (test code = Normal Normal 0875619642) BILIRUBIN (test code = Negative Negative 9722951425) NITRITE (test code = Negative Negative 8873253263) LEUK GABBY (test code = Negative Negative 4115060672) RBC/HPF (test code = See_Comment H [Autom ated message] 2534023520) The system Panelfly generated this result transmitted ref erence range: 0 - 3 HP F. The reference range was not used to int erpret this result as normal/abnormal . WBC/HPF (test code = See_Comment [Autom ated message] 2526659478) The system Panelf[employer] generated this result transmitted ref erence range: 0 - 5 HP F. The reference range was not used to int erpret this result as normal/abnormal . BACTERIA (test code = Negative Negative 0696297974) MUCOUS (test code = Moderate Negative LPF A 8671350601) SQ EPITH (test code = HPF 4487508936) YEAST BUD (test code = <1 See_Comment [Aut omated message] 1158726067) The system Panelf[employer] generated this result transmitted ref erence range: <=1 HPF. The reference range was not used to int erpret this result as normal/abnormal . Lab Interpretation (test Abnormal code = 81981-3) [facility]. METABOLIC PANEL (10307)2019-10-19 10:54:00 Test Item Value Reference Range Interpretation Comments NA (test code = 139 mmol/L 135-145 0611888453) K (test code = 3.8 mmol/L 3.5-5 5007727882) CL (test code = 103 mmol/L 98-108 7851223219) CO2 TOTAL (test code = 30 mmol/L 23-31 8685586206) AGAP (test code = 2-16 1534014174) BUN (test code = 14 mg/dL 7-23 4916472443) GLUCOSE (test code = 101 mg/dL 70-110 5134323897) CREATININE (test code 0.59 mg/dL 0.5-1.04 = 7163694851) TOTAL BILI (test code 0.2 mg/dL 0.1-1.1 = 3874107173) CALCIUM (test code = 9.7 mg/dL 8.6-10.6 3898813039) T PROTEIN (test code = 7.7 g/dL 6.3-8.2 6610832878) ALBUMIN (test code = 4.4 g/dL 3.5-5 7024660243) ALK PHOS (test code = 97 U/L 34-122 3168921958) ALTv (test code = 18 U/L 5-35 1742-6) AST(SGOT) (test code = 23 U/L 13-40 2125472120) eGFR Calculation mL/min/1.73m2 (Non-) (test code = 4943315134) eGFR Calculation mL/min/1.73m2 () (test code = 7312387053) MARCELINO (test code = MARCELINO) Association of [...] or urine or abnormalities in imaging tests). [facility]2020-[facility] 10:53:00 Test Item Value Reference Range Interpretation Comments LIPASE (test code = 9341488196) 115 U/L 0-220 Lab Interpretation (test code = Normal 27479-9) [facility] HospitalPOCT [id number] 10:18:00 Test Item Value Reference Range Interpretation Comments POCT PREG (test code = 1605) Negative On board controls acceptable Present with C Line (test code = 3574) POCT PREG LOT # (test code = HCGF [id number]) POCT PREG TEST DATE (test 01/18/2021 code = 3576) Lab Interpretation (test code = Normal 63265-9) [facility] [id number] 09:37:51Impression: No radiographic evidence for acute cardiopulmonary disease. RL: [id number] AFC: [id number] Indication: Cough Comparison: None available Findings: Single [...] radiographic evidence for acute cardiopulmonary disease.RL: 460AFC: [id number] signed by Ashley De Leon MD, PhD at 08/31/2019 4:37 AMUnB[facility] ONLY - INFLUENZA A & B DIRECT [id number] 09:37:00 Test Item Value Reference Range Interpretation Comments Influenza A (test code = 64392-7) Negative Negative Influenza B (test code = 43187-7) Negative Negative Lab Interpretation (test code = Normal 60701-4) [facility] STREP SCREEN FOR GROUP [id number] 09:29:00 Test Item Value Reference Range Interpretation Comments Streptococcus pyogenes (group A) Negative Negative antigen (test code = 54616-8) Lab Interpretation (test code = Normal 78480-2) [facility]ER EXTREMITY 2019-01-29 [...] method:?NoneProcedure details: ?Manipulation performed: no?Immobilization:?Splint?Splint type:?Sugar tong?Supplies used:?Jsmym-JswszOsso-pfnqoowrn assessment: ?Neurological function: normal?Distal perfusion: normal?Range of motion: unchanged?Patient tolerance of procedure:?Tolerated well, no immediate complicationsUnUT Health Tyler"
--- NOTE | 2021-06-03 18:13 | ER ---
Nurse's Notes [facility] Name: Elba Wells Age: 25 yrs Sex: Female : 1995 Arrival Date: 06/03/2021 Time: 17:12 Bed 7 Private MD: Diagnosis: SARS-associated coronavirus as the cause of diseases classified elsewhere Presentation: 06/03 17:25 Chief complaint: Patient states: was dx with covid on Wednesday and states that sob has jh6 increased. pt able to speak in broken sentnces. Coronavirus screen: At this time, unable to obtain information related to travel outside the [place] Ebola Screen: No symptoms or risks identified at this time. Initial Sepsis Screen: Does the patient meet any 2 criteria? No. Patient's initial sepsis screen is negative. Does the patient have a suspected source of infection? No. Patient's initial sepsis screen is negative. Risk Assessment: Do you want to hurt yourself or someone else? Patient reports no desire to harm self or others. Onset of symptoms was May 29, 2021. 17:25 Method Of Arrival: Ambulatory [facility] 17:25 Acuity: CED 3 jh6 Triage Assessment: 17:28 General: Appears uncomfortable, ill, obese, well developed, Behavior is calm, jh6 cooperative. Pain: Complains of pain in chest Pain currently is 10 out of 10 on a pain scale. Quality of pain is described as aching, crampy, Pain began gradually, Is continuous. Respiratory: Reports shortness of breath cough that is labored breathing pain with cough pain with movement pain with respiration Onset: The symptoms/episode began/occurred yesterday, the patient has moderate shortness of breath. Historical: - Allergies: 18:06 Iodinated Contrast Media - IV Dye; ll3 - Home Meds: 18:06 ProAir HFA 90 mcg/actuation inhalation HFAA [Active]; albuterol sulfate 2.5 mg /3 mL ll3 (0.083 %) Inhl nebu [Active]; Singulair Oral [Active]; montelukast oral [Active]; - PMHx: 18:06 Asthma; ll3 - PSHx: 18:06 section; Tonsillectomy; Adenoid excision; ll3 - Immunization history:: Client reports having NOT received the Covid vaccine. - Social history:: Smoking status: Patient denies any tobacco usage or history of. Screenin:08 Abuse screen: Denies threats or abuse. Nutritional screening: No deficits noted. ll3 Tuberculosis screening: No symptoms or risk factors identified. Fall Risk Mental Status- Oriented to own ability (0 pts). Total Mcfadden Fall Scale indicates No Risk (0-24 pts). Assessment: 18:08 General: Appears in no apparent distress. uncomfortable, Behavior is calm, cooperative. ll3 Pain: Complains of pain in chest. Neuro: Oriented to person, place, time, situation, Speech is normal, Facial symmetry appears normal. Cardiovascular: Rhythm is sinus rhythm. Respiratory: Airway is patent Respiratory effort is even, unlabored, Respiratory pattern is regular, symmetrical, Breath sounds with wheezes bilaterally. Parent/caregiver reports the patient having shortness of breath cough that is labored breathing pain with cough. Vital Signs: 17:25 BP 129 / 80; Pulse 92; Resp 20; Temp 98.8; Pulse Ox 98% ; Weight 99.79 kg; Height 5 ft. jh6 7 in. (170.18 cm); Pain 8/10; 18:11 BP 150 / 72; Pulse 79; Resp 19; Pulse Ox 96% on R/A; ll3 17:25 Body Mass Index 34.46 (99.79 kg, 170.18 cm) [facility] ED Course: 17:12 Patient arrived in ED. am2 17:27 Triage completed. 6 17:29 Arm band placed on right wrist. 6 17:50 [facility]ial Christianson [facility]. 8 17:50 Liborio Murillo MD is Attending Physician. 8 17:54 Ramon Cortes, BALDOMERO is Primary Nurse. ll3 18:08 Patient has correct armband on for positive identification. Bed in low position. Call ll3 light in reach. Side rails up X 1. 18:23 No provider procedures requiring assistance completed. Patient did not have IV access ll3 during this emergency room visit. Administered Medications: No medications were administered Outcome: 18:12 Discharge ordered by . jr8 18:23 Discharged to home ambulatory. ll3 18:23 Condition: stable 18:23 Discharge instructions given to patient, Instructed on discharge instructions, follow up and referral plans. medication usage, Demonstrated understanding of instructions, follow-up care, medications, Prescriptions given X 2. 18:23 Patient left the ED. ll3 Signatures: Danial Christianson PA PA jr8 Irene Pagan Lynsea, RN RN 3 Abby Vilchis RN RN jh6 Corrections: (The following items were deleted from the chart) 17: 17:27 PMHx: Anxiety; [place] [id number] 17: 17:27 PMHx: Asthma; [place] [id number] 17 17:27 PMHx: Cholelithiasis; [place] [id number] 17: 17:27 PSHx: section; [place] [id number] 17: 17:27 PSHx: Tonsillectomy; [place] [id number] 17 17:27 PSHx: adenoid; [place] [id number]
--- NOTE | 2021-06-03 18:13 | EDPHYS ---
Physician Documentation [facility] Name: Elba Wells Age: 25 yrs Sex: Female : 1995 Arrival Date: 06/03/2021 Time: 17:12 Bed 7 Private MD: ED Physician Liborio Murillo HPI: 06/03 18:21 This 25 yrs old Female presents to ER via Ambulatory with complaints of jr8 Breathing Difficulty, covid+. 18:21 This is a 25-year-old female patient that presented to the emergency room after being jr8 seen about a day and a half ago for Covid-like symptoms. Was diagnosed with Covid at that time and had Regeneron completed. Labs unremarkable at that time and was sent home on medications to assist her with her symptoms. Patient came back today because she does not feel any better.. Historical: - Allergies: 18:06 Iodinated Contrast Media - IV Dye; ll3 - Home Meds: 18:06 ProAir HFA 90 mcg/actuation inhalation HFAA [Active]; albuterol sulfate 2.5 mg /3 mL ll3 (0.083 %) Inhl nebu [Active]; Singulair Oral [Active]; montelukast oral [Active]; - PMHx: 18:06 Asthma; ll3 - PSHx: 18:06 section; Tonsillectomy; Adenoid excision; ll3 - Immunization history:: Client reports having NOT received the Covid vaccine. - Social history:: Smoking status: Patient denies any tobacco usage or history of. ROS: 18:21 Eyes: Negative for injury, pain, redness, and discharge, ENT: Negative for injury, jr8 pain, and discharge, Neck: Negative for injury, pain, and swelling, Cardiovascular: Negative for chest pain, palpitations, and edema, Abdomen/GI: Negative for abdominal pain, nausea, vomiting, diarrhea, and constipation, Back: Negative for injury and pain, MS/Extremity: Negative for injury and deformity, Skin: Negative for injury, rash, and discoloration, Neuro: Negative for headache, weakness, numbness, tingling, and seizure. 18:21 Respiratory: Positive for cough, shortness of breath. Exam: 18:21 Eyes: Pupils equal round and reactive to light, extra-ocular motions intact. Lids and jr8 lashes normal. Conjunctiva and sclera are non-icteric and not injected. Cornea within normal limits. Periorbital areas with no swelling, redness, or edema. ENT: Nares patent. Clear nasal discharge noted with mild turbinate inflammation. No septal abnormalities noted. Tympanic membranes are normal and external auditory canals are clear. Oropharynx with no redness, swelling, or masses, exudates, or evidence of obstruction, uvula midline. Mucous membranes moist. Neck: Trachea midline, no thyromegaly or masses palpated, and no cervical lymphadenopathy. Supple, full range of motion without nuchal rigidity, or vertebral point tenderness. No Meningismus. Cardiovascular: Regular rate and rhythm with a normal S1 and S2. No gallops, murmurs, or rubs. Normal PMI, no JVD. No pulse deficits. Respiratory: Lungs have equal breath sounds bilaterally, clear to auscultation and percussion. No rales, rhonchi or wheezes noted. No increased work of breathing, no retractions or nasal flaring. Abdomen/GI: Soft, non-tender, with normal bowel sounds. No distension or tympany. No guarding or rebound. No evidence of tenderness throughout. Skin: Warm, dry with normal turgor. Normal color with no rashes, no lesions, and no evidence of cellulitis. MS/ Extremity: Pulses equal, no cyanosis. Neurovascular intact. Full, normal range of motion. Neuro: Awake and alert, GCS 15, oriented to person, place, time, and situation. Cranial nerves II-XII grossly intact. Motor strength 5/5 in all extremities. Sensory grossly intact. Vital Signs: 17:25 BP 129 / 80; Pulse 92; Resp 20; Temp 98.8; Pulse Ox 98% ; Weight 99.79 kg; Height 5 ft. jh6 7 in. (170.18 cm); Pain 8/10; 18:11 BP 150 / 72; Pulse 79; Resp 19; Pulse Ox 96% on R/A; ll3 17:25 Body Mass Index 34.46 (99.79 kg, 170.18 cm) 6 MDM: 17:50 Patient medically screened. [facility] 18:06 Data reviewed: vital signs, nurses notes, old medical records, and as a result, I will [facility] discharge patient. Data interpreted: Pulse oximetry: on room air is 98 %. Interpretation: normal. Counseling: I had a detailed discussion with the patient and/or guardian regarding: the historical points, exam findings, and any diagnostic results supporting the discharge/admit diagnosis, the need for outpatient follow up, a family practitioner, to return to the emergency department if symptoms worsen or persist or if there are any questions or concerns that arise at home. ED course: Discussed with patient that she is hemodynamically stable at this time. Labs were unremarkable from yesterday and that she is having no increased work of breathing. Counseled her that it is going to be several days of her not feeling well with Covid. In the meantime we will add cough medicine for her and steroids to help dry her secretions up. Patient good with this at this time and knows to come back if you worsen at any point time.. Administered Medications: No medications were administered Disposition: 19:00 Co-signature as Attending Physician, Liborio Murillo MD I agree with the assessment and rn plan of care. Attestation: The patient's history, exam findings, diagnostics, and a summary of any interventions or procedures was reviewed in detail with Danial RALPH. Disposition Summary: 06/03/21 18:12 Discharge Ordered Location: Home jr8 Problem: new jr8 Symptoms: have improved jr8 Condition: Stable jr8 Diagnosis - SARS-associated coronavirus as the cause of diseases classified elsewhere jr8 Followup: jr8 - With: Private Physician - When: 1 week - Reason: Recheck today's complaints, Continuance of care, Re-evaluation by your physician Discharge Instructions: - Discharge Summary Sheet jr8 - COVID-19 jr8 Forms: - Medication Reconciliation Form jr8 - Thank You Letter jr8 - Antibiotic Education jr8 - Prescription Opioid Use jr8 Prescriptions: - promethazine-DM 6.25-15 mg/5 mL Oral syrup - take 5 milliliter by ORAL route every 4-6 hours As needed as needed, not to jr8 exceed 30 mL in 24 hours; 110 milliliter; Refills: 0, Product Selection Permitted - Medrol (Nicolas) 4 mg Oral Tablets, Dose Pack - take 1 tablet by ORAL route as directed - follow package instructions; 1 jr8 packet; Refills: 0, Product Selection Permitted Signatures: Liborio Murillo MD MD rn Roszak, Josh, PA PA jr8 Ramon Cortes RN RN ll3 Abby Vilchis RN RN jh6 Corrections: (The following items were deleted from the chart) 17: PMHx: Anxiety; 6 jh6 17: PMHx: Asthma; jh6 jh6 : PMHx: Cholelithiasis; jh6 jh6 17: PSHx: section; 6 jh6 17: PSHx: Tonsillectomy; 6 jh6 17:27 PSHx: adenoid; 6 jh6
[2021-06-03 18:33] VITALS: TEMP 98.8
[2021-06-03 18:34] VITALS: BP 150/72; O2SAT 96
== END 2021-06-03 18:23 | disposition home or self-care (01) ==
LOC: ER 17:11
DX: U07.1 COVID-19 (principal); Z91.041 Radiographic dye allergy status
CPT/HCPCS: 99284

== ENCOUNTER 2021-07-11 10:51 | Emergency (ER) | payer OTHER, SELFPAY ==
--- OUTSIDE RECORDS SUMMARY | 2021-07-11 10:58 | XMS REPORT | Continuity of Care Document ---
:1995 Author Organization [facility] t Address [address] [place] [address] Dr. Tate [address] [place] [id number] Care Team Providers Name Role Phone PCP, PATIENT DOES NOT HAVE A Primary Care Physician Unavaila ble AKINAKANKSHA C Attending Clinician Unavailable Roman MAN C Attending Clinician Carlos BENAVIDEZ Attending Clinician Unavailable Salina Duarte Attending Clinician Demetrio ALEXANDRE Attending Clinician Unavailable Pjua Melissa MD Attending Clinician Faustino Marshall DO [...] Source Date Date Healthcare Agents on N/A [facility] ersity FileNameRelationshipHealthcare of [place] Agent Medical RelationshipCommunicationErlinda Branch NunezOtherFirst alternate healthcare [phone] (Mobile) Problems Condition Condition Condition Status Onset [...] STD [place] ([place]ually (sexually 00 [facility] kavon transmitte transmitte Br anch d disease) d disease) Well woman Well woman Disease Active 2017-06 U nivers exam exam 106 ity of 00:00: [place] 00 Medical Branch Contracept Contracept Disease Active 2017-06 U nivers debra debra 106 [place]y of management [place] Overweight Overweight Disease Active U nivers 2- ity of 00:00: [place] 00 Medical Branch BMI BMI Disease Active [...] Date Quantity Comments Source Exposure to Yes [facility] SARS-CoV-2 [place] [facility] (event) Branch Alcohol intake 2021-03-16 2021-03-16 Current drinker Unive rsity of 00:00:00 00:00:00 of alcohol [place] [facility] (finding) Branch History SDOH 2020-06-27 2020-06-27 3 University o f Alcohol Frequency 00:00:00 00:00:00 [place] M edical Branch History SDOH 2020-06-27 2020-06-27 99 University o f Alcohol Std 00:00:00 00:00:00 [place] [facility] Drinks Branch History SDCO 2020-06-27 2020-06-27 99 University o f Alcohol Binge 00:00:00 00:00:00 [place] [facility] al [facility] Alcohol Comment 2020-06-27 2020-06-27 on occassion, Univer sity of 00:00:00 00:00:00 liquor and beer [place] [facility] ical on occassions. Branch Tobacco use and 2016-02-11 2016-02-11 Never used Universit y of exposure 00:00:00 00:00:00 [facility] Sex Assigned At [birth year] Universit y of 00:00:00 00:00:00 [facility] Smoking Status Start Date Stop Date Source Never smoker [facility] Medications Ordered Filled Start Stop Current Ordering Indication Dosage Frequency Signature Comments Components Source Medication Medication Date Date Medication? Clinician (SIG) Name Name ibuprofen Yes [id number] 600mg Take 1 Univers 600 mg 9-27 [id number] tablet by ity of tablet 00:00: mouth [place] 00 every 6 Medical (six) Branch hours as needed for Pain (scale 4-6). ibuprofen Yes [id number] 600mg Take 1 Univers 600 mg 9-27 [id number] tablet by ity of tablet 00:00: mouth [place] 00 every 6 Medical (six) Branch hours as needed for Pain (scale 4-6). ibuprofen 2020-0 2020- No 600mg 600 mg, Uni vers (IBU) 02-19 Oral, ity of tablet 600 08:45: 07:44 ONCE, 1 [place] mg 00 :00 dose, [facility] 02/19/21 at Branch 0345, DOUGLAS ibuprofen 2020-0 2020- No 600mg 600 mg, Uni vers (IBU) 02-19 Oral, ity of tablet 600 08:45: 07:44 ONCE, 1 [place] mg 00 :00 dose, [facility] 02/19/21 at Branch 0345, DOUGLAS omeprazole 2020-0 Yes 10mg Take 10 mg U nivers 10 mg 1-07 by mouth ity of capsule 21:45: daily. [address] omeprazole 2020-0 Yes 10mg Take 10 mg U nivers 10 mg 1-07 by mouth ity of capsule 21:45: daily. [address] cetirizine 0 Yes Take by Uni vers HCl (ZYRTEC 1-07 mouth. ity of ORAL) 21:45: [address] cetirizine 2020-0 Yes Take by Uni vers HCl (ZYRTEC 1-07 mouth. ity of ORAL) 21:45: [address] omeprazole 2020-0 Yes 10mg Take 10 mg U nivers 10 mg 1-07 by mouth ity of capsule 21:45: daily. [address] cetirizine 2020-0 Yes Take by Uni vers HCl (ZYRTEC 1-07 mouth. ity of ORAL) 21:45: [address] omeprazole 2020-0 Yes 10mg Take 10 mg U nivers 10 mg 1-07 by mouth ity of capsule 21:45: daily. [address] cetirizine 2020-0 Yes Take by Uni vers HCl (ZYRTEC 1-07 mouth. ity of ORAL) 21:45: [address] omeprazole 2020-0 Yes 10mg Take 10 mg U nivers 10 mg 1-07 by mouth ity of capsule 21:45: daily. [address] cetirizine 2020-0 Yes Take by Uni vers HCl (ZYRTEC 1-07 mouth. ity of ORAL) 21:45: [address] omeprazole 2020-0 Yes 10mg Take 10 mg U nivers 10 mg 1-07 by mouth ity of capsule 21:45: daily. [address] cetirizine 2020-0 Yes Take by Uni vers HCl (ZYRTEC 1-07 mouth. ity of ORAL) 21:45: [address] omeprazole 2020-0 Yes 10mg Take 10 mg U nivers 10 mg 1-07 by mouth ity of capsule 21:45: daily. [address] cetirizine 2020-0 Yes Take by Uni vers HCl (ZYRTEC 1-07 mouth. ity of ORAL) 21:45: [address] omeprazole 2020-0 Yes 10mg Take 10 mg U nivers 10 mg 1-07 by mouth ity of capsule 15:45: daily. [address] cetirizine 2020-0 Yes Take by Uni vers HCl (ZYRTEC 1-07 mouth. ity of ORAL) 15:45: [address] omeprazole 2020-0 Yes 10mg Take 10 mg U nivers 10 mg 1-07 by mouth ity of capsule 15:45: daily. [address] cetirizine 2020-0 Yes Take by Uni vers HCl (ZYRTEC 1-07 mouth. ity of ORAL) 15:45: [address] FENTanyl PF 2019-06- No 50ug 50 mcg, Un phuong (SUBLIMAZE 0-08 10-08 Slow IV ity o f (PF)) 05:45: 05:13 [place], [place] injection 00 :00 ONCE, 1 Medical 50 mcg dose, [facility] 03/28/20 at 0045, STAT metoclopram 2019-06- No 10mg 10 mg, Uni vers julia HCl 0-08 10-08 Slow IV ity of (REGLAN) 02:15: 01:29 [place], [place] injection 00 :00 ONCE, 1 Medical 10 mg dose, [facility] 03/27/20 at 2115, DOUGLAS diphenhydrA 2019-06- No 25mg 25 mg, Uni vers MINE 0-08 10-08 Slow IV ity of (BENADRYL) 02:15: 01:29 Push, [place] injection 00 :00 ONCE, 1 Medical 25 mg dose, [facility] 03/27/20 at 2115, STAT ketorolac 2019-06 No 30mg 30 mg, Unive rs (TORADOL) 0-08 10-08 Slow IV ity of injection 02:15: 01:29 Push, [place] 30 mg 00 :00 ONCE, 1 Medical dose, Wed Branch 03/27/20 at 2115, DOUGLAS
[facility] approving Restricted medication : Sam KEMP NaCl 0.9% 2019-06- No 1000mL at 999 Uni vers (NS) bolus 0-08 10-08 mL/hr, ity of infusion 02:15: 03:33 1,000 mL, [place] as 1,000 mL 00 :00 IV Medical Infusion, Branch ONCE, 1 dose, 03/27/20 at 2115, STAT ibuprofen 2019-06 Yes [id number] 600mg Take 1 Univers 600 mg 0-07 tablet by ity of tablet 00:00: mouth [place] 00 every 6 Medical (six) Branch hours as needed for Pain (scale 4-6). ondansetron 2019-06 Yes [id number] 4mg Take 1 Univers (ZOFRAN 0-07 tablet by ity of ODT) 4 mg 00:00: mouth [place] disintegrat 00 every 8 Medic al ing tablet (eight) Branch hours as needed for Nausea and Vomiting (N/V). ibuprofen 2019-06 No [id number] 600mg Take 1 Univers 600 mg 0-07 01-07 tablet by ity of tablet 00:00: 00:00 mouth [place] 00 :00 every 6 Medical (six) Branch hours as needed for Pain (scale 4-6). ondansetron 2019-06 No [id number] 4mg Take 1 Univers (ZOFRAN 0-07 01-07 tablet by ity of ODT) 4 mg 00:00: 00:00 mouth [place] disintegrat 00 :00 every 8 Medic al ing tablet (eight) Branch hours as needed for Nausea and Vomiting (N/V). ibuprofen 2019-06- No [id number] 600mg Take 1 Univers 600 mg 0-07 01-07 tablet by ity of tablet 00:00: 00:00 mouth [place] 00 :00 every 6 Medical (six) Branch hours as needed for Pain (scale 4-6). ondansetron 2019-06 No [id number] 4mg Take 1 Univers (ZOFRAN 0-07 -07 [...] ity of mg 08:00: 06:57 ONCE, 1 [place] 00 :00 dose, Tue Medical 12/05/19 at Branch 0300, STAT NaCl 0.9% 2019- No 1000mL at 999 Uni vers (NS) bolus 12-04 mL/hr, ity of infusion 07:00: 08:35 1,000 mL, [place] as 1,000 mL 00 :00 IV Medical Infusion, Branch ONCE, 1 dose, 12/05/19 at 0200, DOUGLAS traMADol 50 2020-0 Yes [id number] 50mg Take 1 Univers mg tablet 6-16 tablet by ity o f 00:00: mouth [place] 00 every 6 Medical (six) Branch hours as needed (pain). proMETHazin 2020-0 Yes [id number] 25mg Take 1 Univers e 25 mg 6-16 tablet by ity of tablet 00:00: mouth [place] 00 every 6 Medical (six) Branch hours as needed for Nausea and Vomiting (N/V). traMADol 50 2020-0 Yes [id number] 50mg Take 1 Univers mg tablet 6-16 tablet by ity o f 00:00: mouth [place] 00 every 6 Medical (six) Branch hours as needed (pain). proMETHazin 2020-0 Yes [id number] 25mg Take 1 Univers e 25 mg 6-16 tablet by ity of tablet 00:00: mouth [place] 00 every 6 Medical (six) Branch hours as needed for Nausea and Vomiting (N/V). traMADol 50 2019-0 2020- No [id number] 50mg Take 1 Univers mg tablet 12-04 tablet by ity of 00:00: 00:00 mouth [place] 00 :00 every 6 Medical (six) Branch hours as needed (pain). proMETHazin 2019- No [id number] 25mg Take 1 Univers e 25 mg 12-04 tablet by ity of tablet 00:00: 00:00 mouth [place] 00 :00 every 6 Medical (six) Branch hours as needed for Nausea and Vomiting (N/V). traMADol 50 No [id number] 50mg Take 1 Univers mg tablet 12-04 tablet by ity of 00:00: 00:00 mouth [place] 00 :00 every 6 Medical (six) Branch hours as needed (pain). proMETHazin 2019- [id number] 25mg Take 1 Univers e 25 mg [...] 11/15/19 at 2115, STAT ibuprofen 2019- Yes [id number] 600mg Take 1 U nivers 600 mg 5-27 tablet by ity of tablet 00:00: mouth [place] 00 every 6 Medical (six) Branch hours as needed for Pain (scale 4-6). acetaminoph 2019- Yes [id number] 1{tbl} Take 1 Univers en-codeine 5-27 tablet by ity of 300-30 mg 00:00: mouth [place] tablet 00 every 4 Medical (four) Branch hours as needed for Pain (scale 4-6). ibuprofen Yes [id number] 600mg Take 1 U nivers 600 mg 5-27 tablet by ity of tablet 00:00: mouth [place] 00 every 6 Medical (six) Branch hours as needed for Pain (scale 4-6). acetaminoph Yes [id number] 1{tbl} Take 1 Univers en-codeine 5-27 tablet by ity of 300-30 mg 00:00: mouth [place] tablet 00 every 4 Medical (four) Branch hours as needed for Pain (scale 4-6). ibuprofen Yes [id number] 600mg Take 1 U nivers 600 mg 5-27 tablet by ity of tablet 00:00: mouth [place] 00 every 6 Medical (six) Branch hours as needed for Pain (scale 4-6). acetaminoph Yes [id number] 1{tbl} Take 1 Univers en-codeine 5-27 tablet by ity of 300-30 mg 00:00: mouth [place] tablet 00 every 4 Medical (four) Branch hours as needed for Pain (scale 4-6). ibuprofen 2020- No [id number] 600mg Take 1 Univers 600 mg 5-27 01-07 tablet by ity of tablet 00:00: 00:00 mouth [place] 00 :00 every 6 Medical (six) Branch hours as needed for Pain (scale 4-6). acetaminoph 2019-2020- No [id number] 1{tbl} Take 1 Univers en-codeine 5-27 01- tablet by ity of 300-30 mg 00:00: 00:00 mouth [place] tablet 00 :00 every 4 Medical (four) Branch hours as needed for Pain (scale 4-6). ibuprofen 2019- No [id number] 600mg Take 1 Univers 600 mg 11-14- tablet by ity of tablet 00:00: 00:00 mouth [place] 00 :00 every 6 Medical (six) Branch hours as needed for Pain (scale 4-6). acetaminoph 2019-2020- No [id number] 1{tbl} Take 1 Univers en-codeine 11-14- tablet [...] :00 ONCE, 1 Medical 20 mg dose, [facility] Branch 10/19/19 at 0545, DOUGLAS NaCl 0.9% 2019-0 2020- No 1000mL at 999 Uni vers (NS) bolus 4-30 04-30 mL/hr, ity of infusion 10:45: 11:17 1,000 mL, [place] as 1,000 mL 00 :00 IV Medical [...] Trista Med ical ing tablet 08/31/19 at [facility] 4 mg 0515, Routine ondansetron 2020-0 Yes [id number] 4mg Take 1 Univers 4 mg 3-12 tablet by ity of disintegrat 00:00: mouth [place] ing tablet 00 every 4 Medica l (four) Branch hours as needed for Nausea and Vomiting (N/V). acetaminoph 2020-0 Yes [id number] 1{tbl} Take 1-2 Univers en-codeine 3-12 tablets by ity of 300-30 mg 00:00: mouth [place] tablet 00 every 6 Medical (six) Branch hours as needed (cough). ibuprofen 2020-0 Yes [id number] 800mg Take 1 U nivers 800 mg 3-12 tablet by ity of tablet 00:00: mouth [place] 00 every 8 Medical (eight) Branch hours as needed for Pain (scale 4-6). ondansetron 2020-0 Yes [id number] 4mg Take 1 Univers 4 mg 3-12 tablet by ity of disintegrat 00:00: mouth [place] ing tablet 00 every 4 Medica l (four) Branch hours as needed for Nausea and Vomiting (N/V). acetaminoph 2020-0 Yes [id number] 1{tbl} Take 1-2 Univers en-codeine 3-12 tablets by ity of 300-30 mg 00:00: mouth [place] tablet 00 every 6 Medical (six) Branch hours as needed (cough). ibuprofen 2020-0 Yes [id number] 800mg Take 1 U nivers 800 mg 3-12 tablet by ity of tablet 00:00: mouth [place] 00 every 8 Medical (eight) Branch hours as needed for Pain (scale 4-6). ondansetron 2020-0 Yes [id number] 4mg Take 1 Univers 4 mg 3-12 tablet by ity of disintegrat 00:00: mouth [place] ing tablet 00 every 4 Medica l (four) Branch hours as needed for Nausea and Vomiting (N/V). acetaminoph 2020-0 Yes [id number] 1{tbl} Take 1-2 Univers en-codeine 3-12 tablets by ity of 300-30 mg 00:00: mouth [place] tablet 00 every 6 Medical (six) Branch hours as needed (cough). ibuprofen 2020-0 Yes [id number] 800mg Take 1 U nivers 800 mg 3-12 tablet by ity of tablet 00:00: mouth [place] 00 every 8 Medical (eight) Branch hours as needed for Pain (scale 4-6). ondansetron 2020-0 Yes [id number] 4mg Take 1 Univers 4 mg 3-12 tablet by ity of disintegrat 00:00: mouth [place] ing tablet 00 every 4 Medica l (four) Branch hours as needed for Nausea and Vomiting (N/V). acetaminoph 2020-0 Yes [id number] 1{tbl} Take 1-2 Univers en-codeine 3-12 tablets by ity of 300-30 mg 00:00: mouth [place] tablet 00 every 6 Medical (six) Branch hours as needed (cough). ibuprofen 2020-0 Yes [id number] 800mg Take 1 U nivers 800 mg 3-12 tablet by ity of tablet 00:00: mouth [place] 00 every 8 Medical (eight) Branch hours as needed for Pain (scale 4-6). ondansetron 2020-0 Yes [id number] 4mg Take 1 Univers 4 mg 3-12 tablet by ity of disintegrat 00:00: mouth [place] ing tablet 00 every 4 Medica l (four) Branch hours as needed for Nausea and Vomiting (N/V). acetaminoph 2020-0 Yes [id number] 1{tbl} Take 1-2 Univers en-codeine 3-12 tablets by ity of 300-30 mg 00:00: mouth [place] tablet 00 every 6 Medical (six) Branch hours as needed (cough). ibuprofen Yes [id number] 800mg Take 1 U nivers 800 mg 3-12 tablet by ity of tablet 00:00: mouth [place] 00 every 8 Medical (eight) Branch hours as needed for Pain (scale 4-6). ondansetron 2020- No [id number] 4mg Take 1 Univers 4 mg 3-12 - tablet by ity of disintegrat 00:00: 00:00 [place] tablet 00 :00 every 4 Medica l (four) Branch hours as needed for Nausea and Vomiting (N/V). acetaminoph 2020- No [id number] 1{tbl} Take 1-2 Univers en-codeine 3-05 21- tablets by it y of 300-30 mg 00:00: 00:00 mouth [place] tablet 00 :00 every 6 Medical (six) Branch hours as needed (cough). ibuprofen No [id number] 800mg Take 1 Univers 800 mg 3-12 - tablet by ity of tablet 00:00: 00:00 mouth [place] 00 :00 every 8 Medical (eight) Branch hours as needed for Pain (scale 4-6). ondansetron 2020- No [id number] 4mg Take 1 Univers 4 mg 3-12 - tablet by ity of disintegrat 00:00: 00:00 [place] tablet 00 :00 every 4 Medica l (four) Branch hours as needed for Nausea and Vomiting (N/V). acetaminoph No [id number] 1{tbl} Take 1-2 Univers en-codeine 3-05 21-07 tablets by it y of 300-30 mg 00:00: 00:00 mouth [place] tablet 00 :00 every 6 Medical (six) Branch hours as needed (cough). ibuprofen 2020- No [id number] 800mg Take 1 Univers 800 mg 3-12 -07 tablet by ity of tablet 00:00: 00:00 mouth [place] 00 :00 every 8 Medical (eight) Branch hours as needed for Pain (scale 4-6). sod 2018-06 Yes [id number] 1{bottl Use 1 Unive rs chlor-bicar 2-20 e} Bottle in ity of b-squeez 00:00: each [place] bottle 00 nostril 2 Medical (NEILMED (two) Branch SINUS RINSE times COMPLETE) daily. Use pkdv in hot shower 1 hour before bedtime promethazin 2018-06 Yes [id number] 5mL Take 5 mL Univers e-codeine 2-20 by mouth 4 ity of 6.25-10 00:00: (four) [place] mg/5 mL 00 times Medical syrup daily as Branch needed for Cough. sod 2018-06 Yes [id number] 1{bottl Use 1 Unive rs chlor-bicar 2-20 e} Bottle in ity of b-squeez 00:00: each [place] bottle 00 nostril 2 Medical (NEILMED (two) Branch SINUS RINSE times COMPLETE) daily. Use pkdv in hot shower 1 hour before bedtime promethazin 2018-06 Yes [id number] 5mL Take 5 mL Univers e-codeine 2-20 by mouth 4 ity of 6.25-10 00:00: (four) [place] mg/5 mL 00 times Medical syrup daily as Branch needed for Cough. sod 2018-06 Yes [id number] 1{bottl Use 1 Unive rs chlor-bicar 2-20 e} Bottle in ity of b-squeez 00:00: each [place] bottle 00 nostril 2 Medical (NEILMED (two) Branch SINUS RINSE times COMPLETE) daily. Use pkdv in hot shower 1 hour before bedtime promethazin 2018-06 Yes [id number] 5mL Take 5 mL Univers e-codeine 2-20 by mouth 4 ity of 6.25-10 00:00: (four) [place] mg/5 mL 00 times Medical syrup daily as Branch needed for Cough. sod 2018-06 Yes [id number] 1{bottl Use 1 Unive rs chlor-bicar 2-20 e} Bottle in ity of b-squeez 00:00: each [place] bottle 00 nostril 2 Medical (NEILMED (two) Branch SINUS RINSE times COMPLETE) daily. Use pkdv in hot shower 1 hour before bedtime promethazin 2018-06 Yes [id number] 5mL Take 5 mL Univers e-codeine 2-20 by mouth 4 ity of 6.25-10 00:00: (four) [place] mg/5 mL 00 times Medical syrup daily as Branch needed for Cough. sod 2018-06 Yes [id number] 1{bottl Use 1 Unive rs chlor-bicar 2-20 e} Bottle in ity of b-squeez 00:00: each [place] bottle 00 nostril 2 Medical (NEILMED (two) Branch SINUS RINSE times COMPLETE) daily. Use pkdv in hot shower 1 hour before bedtime promethazin 2018-06 Yes [id number] 5mL Take 5 mL Univers e-codeine 2-20 by mouth 4 ity of 6.25-10 00:00: (four) [place] mg/5 mL 00 times Medical syrup daily as Branch needed for Cough. sod 2018-06- No [id number] 1{bottl Use 1 Univ ers chlor-bicar 2-20 - e} Bottle in it y of b-squeez 00:00: 00:00 each [place] bottle 00 :00 nostril 2 Medical (NEILMED (two) Branch SINUS RINSE times COMPLETE) daily. Use pkdv in hot shower 1 hour before bedtime promethazin 2018-06- No [id number] 5mL Take 5 mL Univers e-codeine 2-20 -07 by mouth 4 ity of 6.25-10 00:00: 00:00 (four) [place] mg/5 mL 00 :00 times Medical syrup daily as Branch needed for Cough. sod 2018-06- No [id number] 1{bottl Use 1 Univ ers chlor-bicar 2-20 - e} Bottle in it y of b-squeez 00:00: 00:00 each [place] bottle 00 :00 nostril 2 Medical (NEILMED (two) Branch SINUS RINSE times COMPLETE) daily. Use pkdv in hot shower 1 hour before bedtime promethazin 2018-06- No [id number] 5mL Take 5 mL Univers e-codeine 2-20 -07 by mouth 4 ity of 6.25-10 00:00: 00:00 (four) [place] mg/5 mL 00 :00 times Medical syrup daily as Branch needed for Cough. traMADol 2018-06 Yes [id number] 50mg Take 1 Univers (ULTRAM) 50 1 [id number] tablet by i ty of mg tablet 00:00: mouth [place] 00 every 8 Medical (eight) Branch hours as needed for Pain (scale 4-6). traMADol 2018-06 Yes [id number] 50mg Take 1 Univers (ULTRAM) 50 - [id number] tablet by i ty of mg tablet 00:00: mouth [place] 00 every 8 Medical (eight) Branch hours as needed for Pain (scale 4-6). traMADol 2018-06 Yes [id number] 50mg Take 1 Univers (ULTRAM) 50 - [id number] tablet by i ty of mg tablet 00:00: mouth [place] 00 every 8 Medical (eight) Branch hours as needed for Pain (scale 4-6). traMADol 2018-06 Yes [id number] 50mg Take 1 Univers (ULTRAM) 50 07-11 [id number] tablet by i ty of mg tablet 00:00: mouth [place] 00 every 8 Medical (eight) Branch hours as needed for Pain (scale 4-6). traMADol 2018-06 Yes [id number] 50mg Take 1 Univers (ULTRAM) 50 - [id number] tablet by i ty of mg tablet 00:00: mouth [place] 00 every 8 Medical (eight) Branch hours as needed for Pain (scale 4-6). traMADol 2018-06- No [id number] 50mg Take 1 Univers (ULTRAM) 50 07-11 [id number] tablet by ity of mg tablet 00:00: 00:00 mouth [place] 00 :00 every 8 Medical (eight) Branch hours as needed for Pain (scale 4-6). traMADol 2018-06- No [id number] 50mg Take 1 Univers (ULTRAM) 50 07-11 [id number] tablet by ity of mg tablet 00:00: 00:00 mouth [place] 00 :00 every 8 Medical (eight) Branch hours as needed for Pain (scale 4-6). traMADol Yes [id number] 50mg Take 1 Univers (ULTRAM) 50 - [id number] tablet by i ty of mg tablet 00:00: mouth [place] 00 every 8 Medical (eight) Branch hours as needed for Pain (scale 4-6). ibuprofen Yes [id number] 600mg Take 1 Univers 600 mg 8- [id number] tablet by ity of tablet 00:00: mouth 4 [place] 00 (four) Medical times Branch daily as needed for Pain (scale 4-6). acetaminoph Yes [id number] 975mg Take 3 Univers en 01-29 [id number] tablets by ity of (TYLENOL) 00:00: mouth 4 [place] 325 mg 00 (four) Medical tablet times Branch daily. This is the maximum safe dose for a healthy adult. ibuprofen 2019- No [id number] 600mg Take 1 Univers 600 mg 01-29 [id number] tablet by ity o f tablet 00:00: 00:00 mouth 4 [place] 00 :00 (four) Medical times Branch daily as needed for Pain (scale 4-6) for up to 5 days. acetaminoph 2018- No [id number] 975mg Take 3 Univers en 01-29 [id number] tablets by ity of (TYLENOL) 00:00: 00:00 mouth 4 [place] 325 mg 00 :00 (four) Medical tablet times Branch daily for 5 days. This is the maximum safe dose for a healthy adult. traMADol 2018- No [id number] 50mg Take 1 Univers (ULTRAM) 50 01-29 [id number] tablet by ity of mg tablet 00:00: 00:00 mouth [place] 00 :00 every 8 Medical (eight) Branch hours as needed for Pain (scale 4-6). medroxyPROG 2017-06 2019- No [id number] 150mg Univers ESTERone 06-26-08 ity of (DEPO-PROVE 22:15: 21:14 [place] RA) 00 :00 Medical injection Branch 150 mg medroxyPROG 2017-06- No [id number] 150mg Univers ESTERone 06-26-08 ity of (DEPO-PROVE [...] 4-6). Immunizations Ordered Filled Immunization Date Status [facility] e Immunization Name Name HPV9 2020-06-27 Completed University of 00:00:00 [facility] [place] [facility] 2020-06-27 Completed University of 00:00:00 [place] [facility] HPV9 2020-06-27 Completed University of 00:00:00 [facility] [place] [facility]9 2020-06-27 Completed University of 00:00:00 [facility] Branch [facility] 2020-06-27 Completed University of 00:00:00 [facility] Branch HPV9 2020-06-27 Completed University of 00:00:00 [facility] Branch [facility] 2020-06-27 Completed University of 00:00:00 [facility] Branch HPV9 2020-06-27 Completed University of 00:00:00 [facility] [place] [facility] 2020-06-27 Completed University of 00:00:00 [facility] Tdap 2017-12-21 Completed University of 00:00:00 [facility] Tdap 2017-12-21 Completed University of 00:00:00 [facility] Tdap 2017-12-21 Completed University of 00:00:00 [facility] Tdap 2017-12-21 Completed University of 00:00:00 [facility] TDAP 2017-12-21 Completed University of 00:00:00 [facility] TDAP 2017-12-21 Completed University of 00:00:00 [facility] TDAP 2017-12-21 Completed University of 00:00:00 [facility] TDAP 2017-12-21 Completed University of 00:00:00 [facility] TDAP 2017-12-21 Completed University of 00:00:00 [facility] TDAP 2017-12-21 Completed University of 00:00:00 [facility] TDAP 2017-12-21 Completed University of 00:00:00 [facility] TDAP 2017-12-21 Completed University of 00:00:00 [facility] Branch TDAP 2017-12-21 Completed University of 00:00:00 [facility] Branch TDAP 2017-12-21 Completed University of 00:00:00 [facility] Branch Tdap 2017-12-21 Completed University of 00:00:00 [facility] Tdap 2017-12-21 Completed University of 00:00:00 [facility] Tdap 2016-07-09 Completed University of 00:00:00 [facility] Branch Tdap 2016-07-09 Completed University of 00:00:00 [facility] Tdap 2016-07-09 Completed University of 00:00:00 [facility] Tdap 2016-07-09 Completed University of 00:00:00 [facility] TDAP 2016-07-09 Completed University of 00:00:00 [facility] TDAP 2016-07-09 Completed University of 00:00:00 [facility] TDAP 2016-07-09 Completed University of 00:00:00 [facility] TDAP 2016-07-09 Completed University of 00:00:00 [facility] TDAP 2016-07-09 Completed University of 00:00:00 [facility] TDAP 2016-07-09 Completed University of 00:00:00 [facility] TDAP 2016-07-09 Completed University of 00:00:00 [facility] TDAP 2016-07-09 Completed University of 00:00:00 [facility] TDAP 2016-07-09 Completed University of 00:00:00 [facility] TDAP 2016-07-09 Completed University of 00:00:00 [facility] Tdap 2016-07-09 Completed University of 00:00:00 [facility] Tdap 2016-07-09 Completed University of 00:00:00 [facility] Influenza Virus 2016-03-25 Completed Universit y of Vaccine Quad IM 3+ 00:00:00 [facility] Influenza Virus 2016-03-25 Completed Universit y of Vaccine Quad IM 3+ 00:00:00 [facility] Influenza Virus 2016-03-25 Completed Universit y of Vaccine Quad IM 3+ 00:00:00 [facility] Influenza Virus 2016-03-25 Completed Universit y of Vaccine Quad IM 3+ 00:00:00 [facility] Influenza Virus 2016-03-25 Completed Universit y of Vaccine Quad IM 3+ 00:00:00 [facility] Influenza Virus 2016-03-25 Completed Universit y of Vaccine Quad IM 3+ 00:00:00 [facility] Influenza Virus 2016-03-25 Completed Universit y of Vaccine Quad IM 3+ 00:00:00 [facility] Influenza Virus 2016-03-25 Completed Universit y of Vaccine Quad IM 3+ 00:00:00 [facility] Influenza Virus 2016-03-25 Completed Universit y of Vaccine Quad IM 3+ 00:00:00 [facility] Influenza Virus 2016-03-25 Completed Universit y of Vaccine Quad IM 3+ 00:00:00 [facility] Influenza Virus 2016-03-25 Completed Universit y of Vaccine Quad IM 3+ 00:00:00 [facility] Influenza Virus 2016-03-25 Completed Universit y of Vaccine Quad IM 3+ 00:00:00 [facility] Influenza Virus 2016-03-25 Completed Universit y of Vaccine Quad IM 3+ 00:00:00 [facility] Influenza Virus 2016-03-25 Completed Universit y of Vaccine [facility] IM 3+ 00:00:00 [facility] Influenza Virus 2016-03-25 Completed Universit y of Vaccine Quad IM 3+ 00:00:00 [facility] Influenza Virus 2016-03-25 Completed Universit y of Vaccine Quad IM 3+ 00:00:00 [facility] Vital Signs Vital Name Observation Time Observation Value Comments Source Systolic blood 2021-03-17 06:16:16 119 mm[Hg] Univer sity of pressure [facility] Diastolic blood 2021-03-17 06:16:16 78 mm[Hg] Unive rsity of [facility] Heart rate 2021-03-17 06:16:16 66 /min [facility] Respiratory rate 2021-03-17 06:16:16 18 /min [facility] Oxygen saturation in 2021-03-17 06:16:16 98 /min [facility] Arterial blood by [facility] Pulse oximetry [place] Body temperature 2021-03-17 03:36:00 37.17 Sandhya [facility] Body height 2021-03-17 03:36:00 170.2 cm [facility] Body weight 2021-03-17 03:36:00 101.379 kg [facility] BMI 2021-03-17 03:36:00 35.01 kg/m2 [facility] Systolic blood 2021-02-19 07:32:00 125 mm[Hg] Univer sity of pressure [facility] Diastolic blood 2021-02-19 07:32:00 83 mm[Hg] Unive rsity of pressure [facility] Heart rate 2021-02-19 07:32:00 75 /min [facility] Body temperature 2021-02-19 07:32:00 36.83 Sandhya Univ ersity of [facility] Respiratory rate 2021-02-19 07:32:00 22 /min Univ ersity of [facility] Body weight 2021-02-19 07:32:00 99.791 kg Universi ty [facility] BMI 2021-02-19 07:32:00 35.51 kg/m2 Universi ty of [facility] Oxygen saturation in 2021-02-19 07:32:00 100 /min University Arterial blood by [facility] Pulse oximetry Branch Systolic blood 2020-06-27 21:28:00 115 mm[Hg] Univer sity of pressure [facility] Diastolic blood 2020-06-27 21:28:00 71 mm[Hg] Unive rsity of pressure [facility] Heart rate 2020-06-27 21:28:00 73 /min Universi ty of [facility] Body temperature 2020-06-27 21:28:00 36.94 Sandhya Univ ersity of [facility] Respiratory rate 2020-06-27 21:28:00 16 /min Univ ersity of [facility] Body height 2020-06-27 21:28:00 167.6 cm [facility] [place] [facility] [place] Body weight 2020-06-27 21:28:00 99.565 kg [facility] BMI 2020-06-27 21:28:00 35.43 kg/m2 [facility] [place] [facility] [place] Systolic blood 2020-06-27 21:28:00 115 mm[Hg] Univer sity of pressure [facility] Diastolic blood 2020-06-27 21:28:00 71 mm[Hg] Unive rsity of pressure [facility] Branch Heart rate 2020-06-27 21:28:00 73 /min Universi ty [facility] [place] [facility] [place] Body temperature 2020-06-27 21:28:00 36.94 Sandhya Univ ersity of [facility] Branch Respiratory rate 2020-06-27 21:28:00 16 /min Univ ersity of [facility] Body height 2020-06-27 21:28:00 167.6 cm Universi ty of [facility] Body weight 2020-06-27 21:28:00 99.565 kg [facility] BMI 2020-06-27 21:28:00 35.43 kg/m2 [facility] Systolic blood 2020-03-28 05:38:00 113 mm[Hg] Univer sity of pressure [facility] Diastolic blood 2020-03-28 05:38:00 84 mm[Hg] Unive rsity of pressure [facility] Heart rate 2020-03-28 05:38:00 87 /min [facility]i ty [facility] Respiratory rate 2020-03-28 05:38:00 18 /min Univ ersity of [facility] Oxygen saturation in 2020-03-28 05:38:00 100 /min University of Arterial blood by [place] [employer] kavon Pulse oximetry Branch Body temperature 2020-03-28 00:14:00 37.5 Sandhya Univ ersity of [facility] Body height 2020-03-28 00:14:00 167.6 cm [facility] Body weight 2020-03-28 00:14:00 90.719 kg [facility] BMI 2020-03-28 00:14:00 32.28 kg/m2 [facility] Systolic blood 2019-12-05 08:44:00 105 mm[Hg] Univer sity of pressure [facility] Diastolic blood 2019-12-05 08:44:00 76 mm[Hg] Unive rsity of pressure [facility] Heart rate 2019-12-05 08:44:00 68 /min [facility] Body temperature 2019-12-05 08:44:00 36.22 Sandhya Univ ersity of [facility] Respiratory rate 2019-12-05 08:44:00 18 /min Univ ersity of [facility] Oxygen saturation in 2019-12-05 08:44:00 100 /min University of Arterial blood by [place] [employer] kavon Pulse oximetry Branch Body height 2019-12-05 06:33:00 167.6 cm [facility] Body weight 2019-12-05 06:33:00 94.348 kg [facility] BMI 2019-12-05 06:33:00 33.57 kg/m2 [facility] Systolic blood 2019-11-16 04:00:00 122 mm[Hg] Univer sity of pressure [facility] Diastolic blood 2019-11-16 04:00:00 78 mm[Hg] Unive rsity of pressure [facility] Heart rate 2019-11-16 04:00:00 65 /min [facility] Respiratory rate 2019-11-16 04:00:00 18 /min Univ ersity of [facility] Oxygen saturation in 2019-11-16 04:00:00 99 /min University of Arterial blood by [facility] Pulse oximetry Branch Body temperature 2019-11-15 23:51:00 37.06 Sandhya Univ ersity of [facility] Body height 2019-11-15 23:51:00 167.6 cm [facility] Body weight 2019-11-15 23:51:00 94.348 kg [facility] BMI 2019-11-15 23:51:00 33.57 kg/m2 [facility] Systolic blood 2019-10-19 11:00:00 122 mm[Hg] Univer sity of pressure [facility] Diastolic blood 2019-10-19 11:00:00 87 mm[Hg] Unive rsity of pressure [facility] Heart rate 2019-10-19 11:00:00 79 /min [facility]i [facility] Respiratory rate 2019-10-19 11:00:00 21 /min Univ ersity of [facility] Oxygen saturation in 2019-10-19 11:00:00 100 /min University of Arterial blood by [facility] Pulse oximetry Branch Body temperature 2019-10-19 09:39:00 36.83 Sandhya Univ ersity of [facility] Body height 2019-10-19 09:39:00 167.6 cm [facility] Body weight 2019-10-19 09:39:00 95.255 kg [facility] BMI 2019-10-19 09:39:00 33.89 kg/m2 [facility] Systolic blood 2019-08-31 10:00:00 119 mm[Hg] Univer sity of pressure [facility] Diastolic blood 2019-08-31 10:00:00 68 mm[Hg] Unive rsity of pressure [facility] Heart rate 2019-08-31 10:00:00 89 /min [facility]i [facility] Body temperature 2019-08-31 08:58:00 37.39 Sandhya Univ ersity [facility] Respiratory rate 2019-08-31 08:58:00 14 /min Univ ersity of [facility] Body height 2019-08-31 08:58:00 167.6 cm [facility] Body weight 2019-08-31 08:58:00 90.719 kg [facility] BMI 2019-08-31 08:58:00 32.28 kg/m2 Universi ty of [facility] Oxygen saturation in 2019-08-31 08:58:00 97 /min University of Arterial blood by [facility] Pulse oximetry Branch Body temperature 2019-01-29 20:06:00 36.94 Sandhya Univ ersity of [facility] Respiratory rate 2019-01-29 20:06:00 18 /min [facility] Body height 2019-01-29 20:06:00 167.6 cm [facility] [place] [facility] [place] Body weight 2019-01-29 20:06:00 87 kg [facility] [place] [facility] [place] BMI 2019-01-29 20:06:00 30.96 kg/m2 Universi ty of [facility] Oxygen saturation in 2019-01-29 20:06:00 98 /min University of Arterial blood by [facility] Pulse oximetry Branch Systolic blood 2019-01-29 20:06:00 126 mm[Hg] Univer sity of pressure [facility] Diastolic blood 2019-01-29 20:06:00 78 mm[Hg] [facility] pressure [facility] Heart rate 2019-01-29 20:06:00 75 /min Universi ty of [facility] Procedures Procedure Date / Time Performing Clinician Source Performed XR FOREARM 2 VW RIGHT 2021-03-17 04:50:[address] [facility] XR HAND 3+ VW RIGHT 2021-03-17 04:19:27 [facility] CONSENT/REFUSAL FOR 2021-03-17 03:27:16 Doctor Unassigned, No [facility] [place] DIAGNOSIS AND TREATMENT Name [facility] NOTICE OF PRIVACY 2021-02-19 07:22:51 Doctor Unassigned, No [facility] CONSENT/REFUSAL FOR 2021-02-19 07:22:35 Doctor Unassigned, No Un iversity [facility] DIAGNOSIS AND TREATMENT [facility] POCT TEST 2020-06-27 22:14:00 [facility] HIV 1/2 AG-AB WITH 2020-06-27 22:13:00 Wilbert Willoughby [facility] REFLEX [facility] GARDASIL 9 (HPV 9V) 2020-06-27 22:00:47 [facility] VACCINE [facility] CT ABDOMEN PELVIS WO 2020-03-28 03:42:05 Sam Kemp [facility] CONTRAST [facility] US GALL BLADDER 2020-03-28 03:06:15 Salvatore [facility] LIPASE 2020-03-28 01:18:00 Salvatore [facility] MAGNESIUM 2020-03-28 01:18:00 Salvatore [facility] COMP. METABOLIC PANEL 2020-03-28 01:18:00 Sam Kemp [place] [facility] ([id number]) Medical Branch CBC WITH DIFF 2020-03-28 01:18:00 Salvatore [facility] URINALYSIS 2020-03-28 01:18:00 Salvatore [facility] COVID-19 (ID NOW RAPID 2020-03-28 01:18:00 Sam Kemp [place] [facility] TESTING) Medical [place] POCT TEST 2020-03-28 01:17:00 Sam Kemp [facility] CONSENT/REFUSAL FOR 2020-03-28 00:05:35 Doctor Unassigned, No Un [facility] DIAGNOSIS AND TREATMENT Name Medical Branch US GALL BLADDER 2019-12-05 07:51:00 Radha Grider [facility] COVID-19 (ID NOW RAPID 2019-12-05 07:03:00 Radha Grider [facility] TESTING) Medical Branch LIPASE 2019-12-05 06:37:00 Radha Grider [facility] TEST, SERUM 2019-12-05 06:37:00 Radha Grider [facility] HEPATIC FUNCTION PANEL 2019-12-05 06:37:00 Radha Grider [facility] ([id number]) (ALB,T.PRO,BILI Medical Branch T,BU/BC,ALT,AST,ALK PHOS) BASIC METABOLIC PANEL 2019-12-05 06:37:00 Shruhti [facility] (NA, K, CL, CO2, Medical Branch GLUCOSE, BUN, CREATININE, CA) CBC WITH DIFFERENTIAL 2019-12-05 06:37:00 Shruthi [facility] URINALYSIS 2019-12-05 06:37:00 Shruthi [facility] NOTICE OF PRIVACY 2019-12-05 06:13:37 Doctor Unassigned, No [facility] PRACTICES Name [facility] CONSENT/REFUSAL FOR 2019-12-05 06:13:05 Doctor Unassigned, No [facility] Name [facility] CT ABDOMEN PELVIS WO 2019-11-16 04:00:55 Sam Kemp [facility] CONTRAST [facility] POCT TEST 2019-11-16 03:26:00 Sam Kemp [facility] US GALL BLADDER 2019-11-16 02:38:56 Sam Kemp [facility] XR CHEST 1 VW 2019-11-16 01:09:53 Ian Greene [facility] PROTHROMBIN TIME / INR 2019-11-16 00:24:00 Ian Greene [facility] ACTIVATED PARTIAL 2019-11-16 00:24:00 Ian Greene [facility] THRMPLAS KEESHA [facility] LIPASE 2019-11-16 00:21:00 Ian Greene [facility] TROPONIN I 2019-11-16 00:21:00 Ian Greene [facility] COMP. METABOLIC PANEL 2019-11-16 00:21:00 Ian Greene [facility] ([id number]) Medical Branch CBC WITH DIFFERENTIAL 2019-11-16 00:21:[address] [facility] EKG-12 LEAD 2019-11-16 00:13:51 Ian Greene [facility] CONSENT/REFUSAL FOR 2019-11-15 23:43:02 Doctor Unassigned, No [facility] Name Medical Branch XR CHEST 1 VW 2019-10-19 10:55:14 Luisa Luna [facility] CORONAVIRUS COVID-19 2019-10-19 10:25:00 Luisa Luna [facility] TESTING [facility] POCT TEST 2019-10-19 10:18:00 Luisa Luna [facility] LIPASE 2019-10-19 10:17:00 Luisa Luna [facility] TROPONIN I 2019-10-19 10:17:00 Luisa Luna [facility] COMP. METABOLIC PANEL 2019-10-19 10:17:00 Luisa Luna [facility] ([id number]) [facility] CBC WITH DIFFERENTIAL 2019-10-19 10:17:[address] [facility] URINALYSIS 2019-10-19 10:17:00 Luisa Luna [facility] EKG-12 LEAD 2019-10-19 09:42:33 Luisa Luna [facility] XR CHEST 1 VW 2019-08-31 09:14:47 [facility] RAPID STREP SCREEN FOR 2019-08-31 09:08:00 Jessica Bob [facility] GROUP A [facility] ADC,CLC OR LCC ONLY - 2019-08-31 09:08:00 Jessica Bob [facility] INFLUENZA A & B DIRECT Medical B ranch ANTIGEN NOTICE OF PRIVACY 2019-08-31 08:52:15 Doctor Unassigned, No [facility] PRACTICES Name Medical Branch CONSENT/REFUSAL FOR 2019-08-31 08:51:56 Doctor Unassigned, [facility] TREATMENT Name Medical [facility] XR FOREARM 2 VW RIGHT 2019-01-29 20:53:[address] [facility] XR HAND 3+ VW RIGHT 2019-01-29 20:53:12 Manan Arce [facility] ED ORTHOPEDIC INJURY 2019-01-29 19:59:18 Manan Arce [facility] TREATMENT - UPPER [facility] EXTREMITY NOTICE OF PRIVACY 2019-01-29 19:47:11 Doctor Unassigned, No [facility] CONSENT/REFUSAL FOR 2019-01-29 19:46:56 Doctor Unassigned, No [facility] DIAGNOSIS AND TREATMENT Name [facility] Encounters Start End Encounter Admission Attending Care Care Encounter Source Date/Time Date/Time Type Type Clinicians Facility Department ID 2021-04-22 Emergency [facility] [id number] Univers 01:27:59 ity [facility] 2021-04-21 Emergency [facility] [id number] Univers 19:32:10 ity of [facility] 2021-04-18 Emergency [facility] [id number] [facility] 2021-03-21 2021-03-21 Outpatient Alannah PILLAI [facility] [id number] Univers 14:45:00 14:45:00 PETE [id number] asqiby o f [facility] 2021-03-21 2021-03-21 Outpatient R ROMAN [facility] [id number] Univers 14:45:00 14:45:00 PETE maldonado o f [facility] 2021-03-20 2021-03-20 Telephone [facility] [id number] Univers 00:00:00 00:00:00 Pete Piedra FRICTION SAW OPERATOR [id number] ity [facility] [id number] Rodney as MATERNAL [id number] [facility] ical & CHILD [address] [place] [address] 2021-03-19 2021-03-19 Outpatient Alannah BENAVIDEZ [facility] [id number] Univers 14:45:00 14:45:00 JAMIE [id number] [facility] 2021-03-19 2021-03-19 Outpatient Alannah BENAVIDEZ [facility] [id number] Univers 14:45:00 14:45:00 JAMIE maldonado [facility] 2021-03-18 2021-03-18 Outpatient Alannah BENAVIDEZ [facility] [id number] Univers 15:15:00 15:15:00 JAMIE [id number] [facility] 2021-03-18 2021-03-18 [facility] [address] [facility] [id number] Univers 15:15:00 15:15:00 JAMIE ity of [facility] 2021-03-16 2021-03-17 Emergency Sam Kemp [facility] [id number] Univers 22:39:00 01:20:00 Salina Aiken [id number] i ty of [place] [id number] [facility] [id number] [place] 345534 [place] 2021-02-20 2021-02-20 Telephone Demetrio Lara [place] [id number] Univers 00:00:00 00:00:00 FAUSTO [id number] it y of [facility] [id number] [place] [id number] [facility] 019 Branch 2021-02-19 2021-02-19 Emergency [facility] [id number] Univers 02:37:00 03:44:00 Joanne Aiken [id number] ity of [place] [id number] [facility] [id number] [place] 345534 [place] 2020-09-10 2020-09-10 [facility] [id number] 00:00:00 00:00:00 Outreach Juan PRIMARY [id number] [place] C[facility] [id number] PAVILLION [id number] 388 2020-09-10 2020-09-10 [facility] [id number] Univers 00:00:00 00:00:00 Outreach Juan PRIMARY [id number] i ty of [place] [id number] [place] [id number] [place] dical 388 [place] 2020-08-27 2020-08-27 Outpatient R [facility] [id number] Univers 10:30:00 10:30:00 [id number] ity [facility] 2020-08-27 2020-08-27 [address] [facility] [id number] Univers 10:30:00 10:30:00 ROSSTEPHENNDA ity o f [facility] 2020-08-26 2020-08-26 Outpatient R [facility] [id number] Univers 13:30:00 13:30:00 [id number] ity [facility] 2020-08-26 2020-08-26 Outpatient R [facility] [id number] Univers 13:30:00 13:30:00 ity [facility] 2020-07-11 2020-07-11 Outpatient R CASE [facility] [id number] Univers 13:15:00 13:15:00 ROSNDA [id number] ity o [facility] 2020-07-11 2020-07-11 Outpatient R WILLOUGHBY, [facility] [id number] Univers 13:15:00 13:15:00 GRANTNDA ity o [facility] 2020-06-27 2020-06-27 Office [facility] [id number] Univers 15:21:42 16:19:38 Visit Myrandaemile R FRICTION SAW OPERATOR [id number] [facility] [id number] Rodney as MATERNAL [id number] Med ical & CHILD [address] [place] [address] 2020-06-27 2020-06-27 Office [facility] [id number] 15:21:42 16:19:38 [facility] R FRICTION SAW OPERATOR [id number] [facility] [id number] MATERNAL [id number] & CHILD 107 [facility] 2020-06-27 2020-06-27 Outpatient R WILLOUGHBY, [facility] [id number] Univers 15:30:00 15:30:00 ROSHUNDA [id number] ity o [facility] 2020-06-27 2020-06-27 Outpatient R WILLOUGHBY, [facility] [id number] Univers 15:30:00 15:30:00 ROSSTEPHENNDA ity o [facility] 2020-06-05 2020-06-05 Outpatient WILLOUGHBY, [facility] [id number] Univers 15:15:00 15:15:00 ROSSTEPHENNDA [id number] ity o f [facility] 2020-06-05 2020-06-05 Outpatient R CASE [facility] [id number] Univers 15:15:00 15:15:00 WILBERT ity o f [facility] 2020-03-27 2020-03-28 Emergency Sam Kemp [facility] [id number] Univers 19:22:00 00:39:00 Salina Aiken [id number] i ty of [place] [id number] [facility] [id number] [address] 2019-12-05 2019-12-05 Emergency Shruthi [facility] [id number] Univers 01:22:11 03:48:00 Radha Aiken [id number] ity of [place] [id number] [facility] [id number] [address] 2019-12-05 2019-12-05 Emergency [facility] E[facility] [id number] Univers 01:22:11 03:48:00 RADHA maldonado [facility] 2019-11-15 2019-11-16 Emergency Sam Kemp [facility] [id number] Univers 19:21:57 00:00:00 Salina Aiken [id number] i ty of [place] [id number] [facility] [id number] [address] 2019-11-15 2019-11-16 Emergency X Sam KEMP [facility] ERT [id number] Univers 19:21:57 00:00:00 ity of [facility] 2019-10-19 2019-10-19 Emergency Anil [facility] [id number] Univers 04:35:17 06:17:00 Luisa [place]iken [id number] i ty of [place] [id number] [facility] [id number] [address] 2019-10-19 2019-10-19 Emergency [facility] [id number] Univers 04:35:17 06:17:00 LUISA maldonado [facility] 2019-08-31 2019-08-31 [facility] [id number] Univers 03:53:07 05:03:00 Jessica Aiken 350.1.13.10 i ty of [place] 4.2.7.2.686 [facility] [id number] [address] 2019-08-31 2019-08-31 Emergency X PAULINO, [facility] ERT [id number] Univers 03:53:07 05:03:00 JESSICA maldonado [facility] 2019-06-09 2019-06-09 Emergency X BETO III, [facility] ERT [id number] Univers 16:17:18 19:21:00 MANAN maldonado [facility] 2019-01-29 2019-01-29 Emergency Beto [facility] [id number] Univers 15:09:14 18:22:00 Manan Aiken 350.1.13.10 i ty of [place] 4.2.7.2.686 [facility] [id number] [address] 2019-01-29 2019-01-29 Orders Doctor BRONWYN [id number] Univers 00:00:00 00:00:00 Only Unassigned, FAUSTO 350.1.13.10 ity of [place] [facility] 4.2.7.2.686 [facility] [phone] [address] Results Test Description Test Time Test Comments Results Result Comments Source HIV 1/2 AG-AB WITH REFLEX 2020-06-28 07:10:00 Test Item Value Reference Range Interpretation Comme nts HIV Semi-quantitative (test code = Negative Negative 73641-2) MARCELINO (test code = MARCELINO) Non-reactive for HIV-1 antigen and HIV-1/HIV-2 antibodies. ?No laboratory evidence of HIV infection. ?Repeat in 2-4 weeks if acute HIV infection is suspected. [facility] WITH [id number] 07:10:00 Test Item Value Reference Range Interpretation Comments HIV Negative Negative Semi-quantitative (test code = 70759-8) MARCELINO (test code = Non-reactive for HIV-1 MARCELINO) antigen and HIV-1/HIV-2 antibodies. ?No laboratory evidence of HIV infection. ?Repeat in 2-4 weeks if acute HIV infection is suspected. [facility] [id number] 22:15:00 Test Item Value Reference Range Interpretation Comments POCT PREG (test code = 1605) Negative On board controls acceptable with C Yes Line (test code = 3574) POCT PREG LOT # (test code = 3575) POCT PREG TEST DATE (test code = 3576) [facility] [id number] 22:15:00 Test Item Value Reference Range Interpretation Comments POCT PREG (test code = 1605) Negative On board controls acceptable with C Yes Line (test code = 3574) POCT PREG LOT # (test code = 3575) POCT PREG TEST DATE (test code = 3576) [facility] ABDOMEN PELVIS WO [id number] 05:11:45 No acute intra-abdominal or pelvic findings. [...] reviewed this study and agree with theabove report.[facility] WITH DIFF 2020-03-28 02:09:00 Test [...] RDW-SD (test code = 45.4 fL 39-49.9 08723-8) RDW-CV (test code = 14.1 % 12-15.5 788-0) PLT (test code = See_Comment [Automated 777-3) message] The sy stem which generated this result transmitted reference range : 166 - 358 10*3/ ?L. The reference r renee was not used to interpret this result as normal/abnormal . MPV (test code = 10.1 fL 9.5-12.9 57175-1) NRBC/100 WBC (test See_Comment [Automat ed code = 4451567884) message] The system which generated this result transmitted reference range : 0.0 - 10.0 /100 WBCs. The refer ence range was not u sed to interpret th is result as normal/abnormal . NRBC x10^3 (test code <0.01 See_Comment [Auto mated = 6334821646) message] The s ystem which generated this result transmitted reference range : 10*3/?L. The reference range was not used to interpret this result as normal/abnormal . GRAN MAT (NEUT) % 56.3 % (test code = 770-8) IMM GRAN % (test code 0.90 % = 2151197099) LYMPH % (test code = 31.9 % 736-9) MONO % (test code = 9.5 % 5905-5) EOS % (test code = 0.5 % 713-8) BASO % (test code = 0.9 % 706-2) GRAN MAT x10^3(ANC) 2.44 10*3/uL 1.88-7.09 (test code = 0306681108) IMM GRAN x10^3 (test 0.04 10*3/uL 0-0.06 code = 2300471404) LYMPH x10^3 (test code 1.38 10*3/uL 1.32-3.29 = 731-0) MONO x10^3 (test code 0.41 10*3/uL 0.33-0.92 = 742-7) EOS x10^3 (test code = <0.03 0.03-0.39 L 711-2) BASO x10^3 (test code 0.04 10*3/uL 0.01-0.07 = 704-7) BANDS (test code = Increased A 7352867880) REACT LYMPHS (test Rare code = 4703942109) Lab Interpretation Abnormal (test code = 67039-7) [facility]2020-10-08 02:04:00 Test Item Value Reference Range Interpretation Comments APPEARANCE (test code = Clear Clear 9752909229) COLOR (test code = Yellow Yellow 8978237343) PH (test code = 4.8-8.0 4985693555) SP GRAVITY (test code = 1.003-1.030 9766781436) GLU U QUAL (test code = Normal Normal 2277046716) BLOOD (test code = Negative Negative 8056110002) KETONES (test code = Negative Negative 5166196131) PROTEIN (test code = Negative Negative 2887-8) UROBILIN (test code = Normal Normal 7402284555) BILIRUBIN (test code = Negative Negative 6686475664) NITRITE (test code = Negative Negative 2094555287) LEUK GABBY (test code = Negative Negative 5434041723) RBC/HPF (test code = See_Comment [Autom ated message] 8556515987) The system [employer] generated this result transmitted ref erence range: 0 - 3 HP F. The reference range was not used to int erpret this result as normal/abnormal . WBC/HPF (test code = See_Comment [Autom ated message] 3062732451) The system [employer] generated this result transmitted ref erence range: 0 - 5 HP F. The reference range was not used to int erpret this result as normal/abnormal . BACTERIA (test code = Few Negative A 4392711876) MUCOUS (test code = Slight Negative LPF A 2776287515) SQ EPITH (test code = HPF 4546821329) Lab Interpretation (test Abnormal code = 64347-8) [facility] (ID NOW RAPID TESTING)2020-03-28 01:54:00 Test Item Value Reference Range Interpretation Comments SARS-CoV-2 Rapid ID NOW Not Detected Not Detected (test code = 91834-4) MARCELINO (test code = MARCELINO) ID NOW COVID-19 Assay is an isothermal nucleic acid amplification test intended for the qualitative detection of nucleic acid from SARS-CoV-2 viral RNA in nasopharyngeal (GAUGE AND INSTRUMENT INSPECTOR) specimens. It is used under Emergency Use [...] indicated. Lab Interpretation Normal (test code = 92680-2) [facility]. METABOLIC PANEL (89023)2020-03-28 01:44:00 Test Item Value Reference Range Interpretation Comments NA (test code = 136 mmol/L 135-145 9119535356) K (test code = 3.9 mmol/L 3.5-5 8047182549) CL (test code = 97 mmol/L 98-108 L 8779878758) CO2 TOTAL (test code = 30 mmol/L 23-31 1033788707) AGAP (test code = 2-16 4308476953) BUN (test code = 7 mg/dL 7-23 7428982193) GLUCOSE (test code = 92 mg/dL 70-110 0647078678) CREATININE (test code = 0.63 mg/dL 0.5-1.04 6152335002) TOTAL BILI (test code = 0.5 mg/dL 0.1-1.5 6886832534) CALCIUM (test code = 9.6 mg/dL 8.6-10.6 4822685793) T PROTEIN (test code = 8.3 g/dL 6.3-8.2 H 0989630247) ALBUMIN (test code = 4.4 g/dL 3.5-5 1719936549) ALK PHOS (test code = 113 U/L 34-122 5834378837) ALTv (test code = 75 U/L 5-35 H 1742-6) AST(SGOT) (test code = 52 U/L 13-40 H 1477330071) eGFR Calculation mL/min/1.73m2 (Non-) (test code = 3852751476) eGFR Calculation mL/min/1.73m2 () (test code = 9386059875) MARCELINO (test code = MARCELINO) Association of [...] tests). Lab Interpretation Abnormal (test code = 00925-0) [facility]2020-10-08 01:44:00 Test Item Value Reference Range Interpretation Comments LIPASE (test code = 5893759607) 88 U/L 0-220 Lab Interpretation (test code = Normal 05332-8) [facility]2020-10-08 01:44:00 Test Item Value Reference Range Interpretation Comments MAGNESIUM (test code = 9615639562) 2.1 mg/dL 1.7-2.4 Lab Interpretation (test code = Normal 72524-9) [facility] [id number] 01:17:00 Test Item Value Reference Range Interpretation Comments POCT PREG (test code = 1605) Negative On board controls acceptable with Present C Line (test code = 3574) POCT PREG LOT # (test code = 3575) [id number] POCT PREG TEST DATE (test 02/18/2021 code = 3576) Lab Interpretation (test code = Normal 50037-9) [facility] (ID NOW RAPID TESTING)2019-12-05 07:32:00 Test Item Value Reference Range Interpretation Comments SARS-CoV-2 Rapid ID NOW Not Detected Not Detected (test code = 60937-7) MARCELINO (test code = MARCELINO) ID NOW COVID-19 Assay is an isothermal nucleic acid amplification test intended for the qualitative detection of nucleic acid from SARS-CoV-2 viral RNA in nasopharyngeal (GAUGE AND INSTRUMENT INSPECTOR) specimens. It is used under Emergency Use [...] indicated. Lab Interpretation Normal (test code = 51956-6) [facility] Metabolic Panel (NA, K, CL, CO2, GLUCOSE, BUN, CREATININE, CA)2019-12-05 07:04:00 Test Item Value Reference Range Interpretation Comments NA (test code = 140 mmol/L 135-145 0853652857) K (test code = 3.9 mmol/L 3.5-5 4304066242) CL (test code = 102 mmol/L 98-108 6277944456) CO2 TOTAL (test code = 30 mmol/L 23-31 4812580818) AGAP (test code = 2-16 6096984157) BUN (test code = 10 mg/dL 7-23 3188772680) GLUCOSE (test code = 91 mg/dL 70-110 6837489496) CREATININE (test code 0.67 mg/dL 0.5-1.04 = 3413475843) CALCIUM (test code = 9.7 mg/dL 8.6-10.6 9018294315) eGFR Calculation mL/min/1.73m2 (Non-) (test code = 1293937212) eGFR Calculation mL/min/1.73m2 () (test code = 2148495816) MARCELINO (test code = MARCELINO) Association of [...] or urine or abnormalities in imaging tests). [facility] (ALB, T.PRO, BILI T, BU/BC, ALT, AST, ALK PHOS)2019-12-05 07:04:00 Test Item Value Reference Range Interpretation Comments TOTAL BILI (test code = 3478986419) 0.3 mg/dL 0.1-1.1 BILI UNCON (test code = 8268808818) 0.4 mg/dL 0.1-1.1 BILI CONJ (test code = 6191994038) 0.0 mg/dL 0-0.3 T PROTEIN (test code = 0595191697) 8.7 g/dL 6.3-8.2 H ALBUMIN (test code = 4208748105) 4.8 g/dL 3.5-5 ALK PHOS (test code = 4652474050) 110 U/L 34-122 ALTv (test code = 1742-6) 20 U/L 5-35 AST(SGOT) (test code = 8835953214) 24 U/L 13-40 Lab Interpretation (test code = Abnormal 51121-3) [facility] MarshallLipase [id number] 07:04:00 Test Item Value Reference Range Interpretation Comments LIPASE (test code = 7364709912) 117 U/L 0-220 Lab Interpretation (test code = Normal 56701-2) [facility]regnancy Test, [id number] 07:00:00 Test Item Value Reference Range Interpretation Comments PREG SERUM (test code Negative = 5013926566) MARCELINO (test code = MARCELINO) Less than 10 IU/L. ?If low titer or ectopic is suspected, resubmit specimen in 48-72 hours. [facility] Marshall[facility]inalysis2020-06-16 06:55:00 Test Item Value Reference Range Interpretation Comments APPEARANCE (test code = Clear Clear 9873390801) COLOR (test code = Straw Yellow A 5226332732) PH (test code = 4.8-8.0 8283532923) SP GRAVITY (test code = 1.003-1.030 5567766978) GLU U QUAL (test code = Normal Normal 6643321948) BLOOD (test code = Negative Negative 6163843106) KETONES (test code = Negative Negative 3786737285) PROTEIN (test code = Negative Negative 2887-8) UROBILIN (test code = Normal Normal 8795457679) BILIRUBIN (test code = Negative Negative 6244558592) NITRITE (test code = Negative Negative 3712437736) LEUK GABBY (test code = Negative Negative 9662579072) RBC/HPF (test code = See_Comment [Autom ated message] 8072517250) The system [employer] generated this result transmitted ref erence range: 0 - 3 HP F. The reference range was not used to int erpret this result as normal/abnormal . WBC/HPF (test code = See_Comment [Autom ated message] 4812146772) The system [employer] generated this result transmitted ref erence range: 0 - 5 HP F. The reference range was not used to int erpret this result as normal/abnormal . BACTERIA (test code = Negative Negative 8492397708) MUCOUS (test code = Slight Negative LPF A 5757480229) SQ EPITH (test code = HPF 3156545293) Lab Interpretation (test Abnormal code = 66887-8) [facility] WITH [id number] 06:47:00 Test Item Value Reference Range Interpretation Comments WBC (test code = See_Comment [Automated 6737-2) message] The sy stem which generated this result transmitted reference range : 4.30 - 11.10 10*3/?L. The reference range was not used to interpret this result as normal/abnormal . RBC (test code = See_Comment [Automated 959-8) message] The sy stem which generated this [...] RDW-SD (test code = 42.7 fL 39-49.9 88361-2) RDW-CV (test code = 13.0 % 12-15.5 788-0) PLT (test code = See_Comment H [Automated 777-3) message] The sy stem which generated this result transmitted reference range : 166 - 358 10*3/ ?L. The reference r renee was not used to interpret this result as normal/abnormal . MPV (test code = 10.0 fL 9.5-12.9 43671-1) NRBC/100 WBC (test See_Comment [Automat ed code = 7875175369) message] The system which generated this result transmitted reference range : 0.0 - 10.0 /100 WBCs. The refer ence range was not u sed to interpret th is result as normal/abnormal . NRBC x10^3 (test code <0.01 See_Comment [Auto mated = 3250024434) message] The s ystem which generated this result transmitted reference range : 10*3/?L. The reference range was not used to interpret this result as normal/abnormal . GRAN MAT (NEUT) % 65.1 % (test code = 770-8) IMM GRAN % (test code 0.30 % = 9486636123) LYMPH % (test code = 22.5 % 736-9) MONO % (test code = 8.2 % 5905-5) EOS % (test code = 3.4 % 713-8) BASO % (test code = 0.5 % 706-2) GRAN MAT x10^3(ANC) 5.71 10*3/uL 1.88-7.09 (test code = 3768357201) IMM GRAN x10^3 (test 0.03 10*3/uL 0-0.06 code = 2454305790) LYMPH x10^3 (test code 1.97 10*3/uL 1.32-3.29 = 731-0) MONO x10^3 (test code 0.72 10*3/uL 0.33-0.92 = 742-7) EOS x10^3 (test code = 0.30 10*3/uL 0.03-0.39 711-2) BASO x10^3 (test code 0.04 10*3/uL 0.01-0.07 = 704-7) Lab Interpretation Abnormal (test code = 35088-9) [facility] [id number] 03:26:00 Test Item Value Reference Range Interpretation Comments POCT PREG (test code = 1605) Negative On board controls acceptable with Present C Line (test code = 3574) POCT PREG LOT # (test code = 3575) [id number] POCT PREG TEST DATE (test 01/18/2021 code = 3576) Lab Interpretation (test code = Normal 28616-2) [facility] Marshall[facility] GALL [id number] 02:48:50 Gallbladder hydrops and cholelithiasis without sonographic findings tosuggest acute cholecystitis.Preliminary Report Dictated by Resident: Cirpiano Cardenas MD., have reviewed this study and [...] reviewed this study and agree withthe above report.[facility]TRMCLE[facility] CL[facility]ENDONFREDDIE I 2019-11-16 01:18:00 Test Item Value Reference Range Interpretation Comments TROPONIN I (test <0.012 See_Comment [Automated code = 1628731713) message] The system which generated this result [...] ? Lab Interpretation Normal (test code = 72942-6) [facility]. METABOLIC PANEL (93435)2019-11-16 01:07:00 Test Item Value Reference Range Interpretation Comments NA (test code = 140 mmol/L 135-145 3667660716) K (test code = 4.2 mmol/L 3.5-5 5117274486) CL (test code = 101 mmol/L 98-108 4555442461) CO2 TOTAL (test code = 29 mmol/L 23-31 1659837303) AGAP (test code = 2-16 2222391436) BUN (test code = 11 mg/dL 7-23 1920769836) GLUCOSE (test code = 101 mg/dL 70-110 2784758595) CREATININE (test code 0.50 mg/dL 0.5-1.04 = 9850591309) TOTAL BILI (test code 0.1 mg/dL 0.1-1.1 = 1681360231) CALCIUM (test code = 9.4 mg/dL 8.6-10.6 1005032962) T PROTEIN (test code = 7.8 g/dL 6.3-8.2 9094267600) ALBUMIN (test code = 4.4 g/dL 3.5-5 5684600442) ALK PHOS (test code = 88 U/L 34-122 7125220134) ALTv (test code = 25 U/L 5-35 1742-6) AST(SGOT) (test code = 25 U/L 13-40 2781922488) eGFR Calculation mL/min/1.73m2 (Non-) (test code = 9347577285) eGFR Calculation mL/min/1.73m2 () (test code = 5743705910) MARCELINO (test code = MARCELINO) Association of [...] or urine or abnormalities in imaging tests). [facility]IP[facility], [id number] 01:07:00 Test Item Value Reference Range Interpretation Comments LIPASE (test code = 5125492557) 109 U/L 0-220 Lab Interpretation (test code = Normal 47010-9) [facility] MarshallPROTHROMBIN TIME / [id number] 01:07:00 Test Item Value Reference Range Interpretation Comments PROTIME PATIENT (test See_Comment L [Auto mated message] code = 5964-2) The system [employer] generated this result transmitted ref erence range: 12.0 - 1 4.7 Seconds. The reference range was not used to int erpret this result as normal/abnormal . INR (test code = 6301-6) Nor mal INR <1.1; Warfarin Therap eutic range 2.0 to 3. 0 or 2.5 to 3.5, dep ending upon the indica tions. Lab Interpretation (test Abnormal code = 00132-6) [facility] MarshallaPTT2020-05-28 01:05:00 Test Item Value Reference Range Interpretation Comments APTT Patient (test See_Comment [Automat ed code = 3173-2) message] The system which generated this result transmitted reference range : 23 - 38 Seconds . The reference range was not used to interpr et this result as normal/abnormal . MARCELINO (test code = MARCELINO) The [facility] patient population mean normal value for aPTT is 30 seconds. Lab Interpretation Normal (test code = 85533-8) [facility] WITH [id number] 00:48:00 Test Item Value Reference Range Interpretation [...] RDW-SD (test code = 43.6 fL 39-49.9 65823-2) RDW-CV (test code = 13.1 % 12-15.5 788-0) PLT (test code = See_Comment H [Automated 777-3) message] The sy stem which generated this result transmitted reference range : 166 - 358 10*3/ ?L. The reference r renee was not used to interpret this result as normal/abnormal . MPV (test code = 10.4 fL 9.5-12.9 98668-4) NRBC/100 WBC (test See_Comment [Automat ed code = 2248918766) message] The system which generated this result transmitted reference range : 0.0 - 10.0 /100 WBCs. The refer ence range was not u sed to interpret th is result as normal/abnormal . NRBC x10^3 (test code <0.01 See_Comment [Auto mated = 2886641460) message] The s ystem which generated this result transmitted reference range : 10*3/?L. The reference range was not used to interpret this result as normal/abnormal . GRAN MAT (NEUT) % 62.6 % (test code = 770-8) IMM GRAN % (test code 0.60 % = 7836049192) LYMPH % (test code = 24.0 % 736-9) MONO % (test code = 8.1 % 5905-5) EOS % (test code = 4.1 % 713-8) BASO % (test code = 0.6 % 706-2) GRAN MAT x10^3(ANC) 4.86 10*3/uL 1.88-7.09 (test code = 0876393309) IMM GRAN x10^3 (test 0.05 10*3/uL 0-0.06 code = 6527667502) LYMPH x10^3 (test code 1.87 10*3/uL 1.32-3.29 = 731-0) MONO x10^3 (test code 0.63 10*3/uL 0.33-0.92 = 742-7) EOS x10^3 (test code = 0.32 10*3/uL 0.03-0.39 711-2) BASO x10^3 (test code 0.05 10*3/uL 0.01-0.07 = 704-7) Lab Interpretation Abnormal (test code = 96997-6) [facility] [id number] 11:05:00 Test Item Value Reference Range Interpretation Comments TROPONIN I (test <0.012 See_Comment [Automated code = 7345931769) message] The system which generated this result [...] ? Lab Interpretation Normal (test code = 02131-4) [facility] COVID-19 [id number] 11:04:00 Test Item Value Reference Range Interpretation Comments SARS-CoV-2 (test code = Not Detected Not Detected 53510-0) MARCELINO (test code = MARCELINO) ID NOW COVID-19 Assay is an isothermal nucleic acid amplification test intended for the qualitative detection of nucleic acid from SARS-CoV-2 viral RNA in nasopharyngeal (GAUGE AND INSTRUMENT INSPECTOR) specimens. It is used under Emergency Use [...] indicated. Lab Interpretation Normal (test code = 78734-6) [facility] WITH [id number] 10:59:00 Test Item Value Reference Range Interpretation [...] RDW-SD (test code = 44.3 fL 39-49.9 30813-2) RDW-CV (test code = 13.2 % 12-15.5 788-0) PLT (test code = See_Comment [Automated 777-3) message] The sy stem which generated this result transmitted reference range : 166 - 358 10*3/ ?L. The reference r renee was not used to interpret this result as normal/abnormal . MPV (test code = 10.6 fL 9.5-12.9 19124-9) NRBC/100 WBC (test See_Comment [Automat ed code = 1314315318) message] The system which generated this result transmitted reference range : 0.0 - 10.0 /100 WBCs. The refer ence range was not u sed to interpret th is result as normal/abnormal . NRBC x10^3 (test code <0.01 See_Comment [Auto mated = 8666895143) message] The s ystem which generated this result transmitted reference range : 10*3/?L. The reference range was not used to interpret this result as normal/abnormal . GRAN MAT (NEUT) % 68.9 % (test code = 770-8) IMM GRAN % (test code 0.30 % = 5414554967) LYMPH % (test code = 21.3 % 736-9) MONO % (test code = 6.4 % 5905-5) EOS % (test code = 2.5 % 713-8) BASO % (test code = 0.6 % 706-2) GRAN MAT x10^3(ANC) 6.96 10*3/uL 1.88-7.09 (test code = 7335162619) IMM GRAN x10^3 (test 0.03 10*3/uL 0-0.06 code = 6739799963) LYMPH x10^3 (test code 2.15 10*3/uL 1.32-3.29 = 731-0) MONO x10^3 (test code 0.65 10*3/uL 0.33-0.92 = 742-7) EOS x10^3 (test code = 0.25 10*3/uL 0.03-0.39 711-2) BASO x10^3 (test code 0.06 10*3/uL 0.01-0.07 = 704-7) Lab Interpretation Abnormal (test code = 82488-5) [facility]2020-04-30 10:58:00 Test Item Value Reference Range Interpretation Comments APPEARANCE (test code = Hazy Clear A 6863790159) COLOR (test code = Yellow Yellow 1271992244) PH (test code = 4.8-8.0 5984246381) SP GRAVITY (test code = 1.003-1.030 9396174909) GLU U QUAL (test code = Normal Normal 5302953171) BLOOD (test code = Negative Negative 3738352846) KETONES (test code = Negative Negative 4047597209) PROTEIN (test code = Negative Negative 2887-8) UROBILIN (test code = Normal Normal 0245006102) BILIRUBIN (test code = Negative Negative 7130861258) NITRITE (test code = Negative Negative 4024594121) LEUK GABBY (test code = Negative Negative 0771532491) RBC/HPF (test code = See_Comment H [Autom ated message] 7616384755) The system [employer] generated this result transmitted ref erence range: 0 - 3 HP F. The reference range was not used to int erpret this result as normal/abnormal . WBC/HPF (test code = See_Comment [Autom ated message] 3752050951) The system [employer] generated this result transmitted ref erence range: 0 - 5 HP F. The reference range was not used to int erpret this result as normal/abnormal . BACTERIA (test code = Negative Negative 5827318222) MUCOUS (test code = Moderate Negative LPF A 1348510634) SQ EPITH (test code = HPF 8765503836) YEAST BUD (test code = <1 See_Comment [Aut omated message] 4165517997) The system [employer] generated this result transmitted ref erence range: <=1 HPF. The reference range was not used to int erpret this result as normal/abnormal . Lab Interpretation (test Abnormal code = 36847-7) [facility]. METABOLIC PANEL (67003)2019-10-19 10:54:00 Test Item Value Reference Range Interpretation Comments NA (test code = 139 mmol/L 135-145 6747346820) K (test code = 3.8 mmol/L 3.5-5 9068878203) CL (test code = 103 mmol/L 98-108 3080967169) CO2 TOTAL (test code = 30 mmol/L 23-31 9914438670) AGAP (test code = 2-16 2616497890) BUN (test code = 14 mg/dL 7-23 9912237652) GLUCOSE (test code = 101 mg/dL 70-110 8027452569) CREATININE (test code 0.59 mg/dL 0.5-1.04 = 6339087369) TOTAL BILI (test code 0.2 mg/dL 0.1-1.1 = 5370585458) CALCIUM (test code = 9.7 mg/dL 8.6-10.6 7332986192) T PROTEIN (test code = 7.7 g/dL 6.3-8.2 5133821561) ALBUMIN (test code = 4.4 g/dL 3.5-5 3103535274) ALK PHOS (test code = 97 U/L 34-122 3498256025) ALTv (test code = 18 U/L 5-35 1742-6) AST(SGOT) (test code = 23 U/L 13-40 0184396559) eGFR Calculation mL/min/1.73m2 (Non-) (test code = 0695367392) eGFR Calculation mL/min/1.73m2 () (test code = 3235288791) MARCELINO (test code = MARCELINO) Association of [...] or urine or abnormalities in imaging tests). [facility]00 Test Item Value Reference Range Interpretation Comments LIPASE (test code = 8179190784) 115 U/L 0-220 Lab Interpretation (test code = Normal 32274-3) [facility] [id number] 10:18:00 Test Item Value Reference Range Interpretation Comments POCT PREG (test code = 1605) Negative On board controls acceptable Present with C Line (test code = 3574) POCT PREG LOT # (test code = HCGF [id number]) POCT PREG TEST DATE (test 01/18/2021 code = 3576) Lab Interpretation (test code = Normal 62631-5) [facility] CHEST 1 [id number] 09:37:51Impression: No radiographic evidence for acute cardiopulmonary disease. RL: 460 AFC: [id number] Indication: Cough Comparison: None available Findings: Single [...] radiographic evidence for acute cardiopulmonary disease.RL: 460AFC: [id number] signed by Ashley De Leon MD, PhD at 08/31/2019 4:37 AMUnThe [facility] of [facility] ONLY - INFLUENZA A & B DIRECT [id number] 09:37:00 Test Item Value Reference Range Interpretation Comments Influenza A (test code = 36440-7) Negative Negative Influenza B (test code = 23990-4) Negative Negative Lab Interpretation (test code = Normal 63800-6) [facility] STREP SCREEN FOR GROUP [id number] 09:29:00 Test Item Value Reference Range Interpretation Comments Streptococcus pyogenes (group A) Negative Negative antigen (test code = 61362-0) Lab Interpretation (test code = Normal 41716-2) [facility] - UPPER EXTREMITY 2019-01-29 19:59:18MorManan [...] method:?NoneProcedure details: ?Manipulation performed: no?Immobilization:?Splint?Splint type:?Sugar tong?Supplies used:?Vibfc-UydgzFbmj-qwxfxdayt assessment: ?Neurological function: normal?Distal perfusion: normal?Range of motion: unchanged?Patient tolerance of procedure:?Tolerated well, no immediate complicationsUnCuero Regional Hospital"
[2021-07-11 11:22] LABS: Urine Blood 3+ (Negative); Urine Glucose Negative (Negative); Urine Protein 2+ (Negative); Urine Specific Gravity 1.025 (1.005-1.030); Urine pH 5.5 (5.0-7.0)
[2021-07-11] MEDS ORDERED: ONDANSETRON 4 MG/2 ML VIAL ONE (11:30)
[2021-07-11] MEDS ORDERED: KETOROLAC 30 MG/ML INJ ONE (11:31)
[2021-07-11 11:35] LABS: Absolute Lymphocytes (CBC) 2.3 K/uL (0.7-4.9); Hematocrit 36.7 % (36.0-45.0); Lymphocytes % 29.1 % (15.3-44.8); MPV 8.3 fL (7.6-11.3)
--- NOTE | 2021-07-11 11:58 | RAD REPORT ---
EXAM DESCRIPTION: US - Abdomen Exam Limited - 07/11/2021 11:45 am CLINICAL HISTORY: Abdominal pain. COMPARISON: 2019 FINDINGS: A 3 centimeter gallstone. Gallbladder wall is probably upper limits normal thickness The biliary tree is normal caliber. IMPRESSION: Cholelithiasis
[2021-07-11 12:25] LABS: ALT/SGPT 28 U/L (12-78); AST/SGOT 13 U/L (15-37); Albumin 3.6 g/dL (3.4-5.0); Alkaline Phosphatase 98 U/L (45-117); BUN Blood Urea Nitrogen 9 mg/dL (7-18); Bicarbonate 27 mmol/L (21-32); Bilirubin Direct < 0.1 mg/dL (0-0.2); Bilirubin Total 0.2 mg/dL (0.2-1.0); Glucose Level 88 mg/dL (74-106); Lipase 113 U/L (73-393); Potassium 3.7 mmol/L (3.5-5.1); Protein, Total 7.7 g/dL (6.4-8.2); Sodium Level 138 mmol/L (136-145)
--- NOTE | 2021-07-11 12:41 | ER ---
Nurse's Notes [facility] Name: Elba Wells Age: 25 yrs Sex: Female : 1995 Arrival Date: 07/11/2021 Time: 10:54 Bed 12 Private MD: Diagnosis: Other cholelithiasis without obstruction Presentation: 07/11 11:01 Chief complaint: Patient states: R sided abd pain with diarrhea since last night. No ll1 fever. Coronavirus screen: Vaccine status: Patient reports being unvaccinated. Client denies travel out of the [place] in the last 14 days. At this time, the client does not indicate any symptoms associated with coronavirus-19. Ebola Screen: Patient denies travel to an Ebola-affected area in the 21 days before illness onset. Initial Sepsis Screen: Does the patient meet any 2 criteria? No. Patient's initial sepsis screen is negative. Does the patient have a suspected source of infection? Yes: Acute abdominal pain. Risk Assessment: Do you want to hurt yourself or someone else? Patient reports no desire to harm self or others. Onset of symptoms was July 10, 2021. 11:01 Method Of Arrival: Ambulatory ll1 11:01 Acuity: CED 3 ll1 Historical: - Allergies: 11:00 Iodinated Contrast Media - IV Dye; ll1 - PMHx: 11:00 Asthma; Anemia; D\\T\\C; ll1 - PSHx: 11:00 Adenoid excision; section; Tonsillectomy; ll1 - Immunization history:: Client reports having NOT received the Covid vaccine. - Social history:: Smoking status: Patient denies any tobacco usage or history of. Screenin:02 Abuse screen: Denies threats or abuse. Denies injuries from another. Nutritional ic1 screening: No deficits noted. Tuberculosis screening: No symptoms or risk factors identified. Fall Risk None identified. Exposure risk/Travel Screening: None identified. Assessment: 11:02 Reassessment: Pt amb from triage to treatment area for R side abd pain and diarrhea ic1 that started on yesterday. States she started her menstrual x 2 days ago, but feels this pain is unrelated. Pt states, "I think its my gallbladder". Pt denies emesis, but c/o nausea. Denies burning while urinating. Amb w steady gait. AAOx4. GCS 15. Pain: Complains of pain in abdomen. Neuro: No deficits noted. Cardiovascular: No deficits noted. Respiratory: No deficits noted. GI: Reports lower abdominal pain, diarrhea, nausea. : No deficits noted. EENT: No deficits noted. Derm: No deficits noted. Musculoskeletal: No deficits noted. 11:38 Reassessment: Pt transported to [facility] via wheelchair. Denies distress at this time.ic1 Vital Signs: 11:01 BP 121 / 77; Pulse 85; Resp 18; Pulse Ox 98% on R/A; ic1 11:01 Temp 97.9; Weight 102.06 kg; Height 5 ft. 7 in. (170.18 cm); Pain 10/10; ll1 13:03 BP 102 / 59; Pulse 73; Resp 16; Pulse Ox 100% on R/A; ic1 11:01 Body Mass Index 35.24 (102.06 kg, 170.18 cm) ll1 ED Course: 10:54 Patient arrived in ED. am2 10:59 Carolina Butler FNP-C [facility] kb 10:59 Ariel Solomon MD is Attending Physician. kb 11:00 Arm band placed on Patient placed in an exam room, on a stretcher. ll1 11:01 Aydee Foley, RN is Primary Nurse. ic1 11:02 Triage completed. ll1 11:02 Patient has correct armband on for positive identification. Bed in low position. Call ic1 light in reach. 11:02 Inserted saline lock: 20 gauge in right antecubital area, using aseptic technique. ic1 Blood collected. 11:36 Basic Metabolic Panel Sent. ic1 11:36 CBC with Diff Sent. ic1 11:36 Hepatic Function Sent. ic1 11:36 Lipase Sent. ic1 11:45 US Abdomen Limited In Process Unspecified. EDMS Administered Medications: 11:33 Drug: Ketorolac 30 mg Route: IVP; Site: right antecubital; ic1 11:34 Drug: Zofran (Ondansetron) 4 mg Route: IVP; Site: right antecubital; ic1 Outcome: 12:41 Discharge ordered by . kb 13:03 Discharged to home ambulatory. ic1 13:03 Condition: stable 13:03 Discharge instructions given to patient, Instructed on discharge instructions, follow up and referral plans. Demonstrated understanding of instructions, follow-up care, medications, Prescriptions given X 2. 13:13 Patient left the ED. ic1 Signatures: Dispatcher [employer] Carolina Stout, SRINI JOHNSTON-Irene Killian Lynsay, RN RN ll1 Aydee Foley RN RN ic1
--- NOTE | 2021-07-11 12:41 | EDPHYS ---
Physician Documentation [facility] Name: Elba Wells Age: 25 yrs Sex: Female : 1995 Arrival Date: 07/11/2021 Time: 10:54 Bed 12 Private MD: ED Physician Ariel Solomon HPI: 07/11 11:12 This 25 yrs old Female presents to ER via Ambulatory with complaints of Flank kb Pain - right, Diarrhea. 11:12 The patient presents with abdominal pain in the right upper quadrant. Onset: The kb symptoms/episode began/occurred yesterday. The symptoms do not radiate. Associated signs and symptoms: Pertinent positives: diarrhea, Pertinent negatives: nausea and vomiting, fever. The symptoms are described as constant. Modifying factors: The symptoms are alleviated by nothing, the symptoms are aggravated by pressure. Severity of pain: At its worst the pain was moderate in the emergency department the pain is unchanged. The patient has experienced a previous episode. The patient has not recently seen a physician. Pt reports RUQ pain that started yesterday. States she has had this before and told it was gallstones, but did not follow up . Historical: - Allergies: 11:00 Iodinated Contrast Media - IV Dye; ll1 - PMHx: 11:00 Asthma; Anemia; D\T\C; ll1 - PSHx: 11:00 Adenoid excision; section; Tonsillectomy; ll1 - Immunization history:: Client reports having NOT received the Covid vaccine. - Social history:: Smoking status: Patient denies any tobacco usage or history of. ROS: 11:11 Constitutional: Negative for fever, chills, and weight loss. kb 11:11 Abdomen/GI: Positive for abdominal pain, diarrhea, Negative for nausea and vomiting. 11:11 All other systems are negative. Exam: 11:11 Constitutional: This is a well developed, well nourished patient who is awake, alert, kb and in no acute distress. Head/Face: Normocephalic, atraumatic. ENT: Moist Mucous membranes Cardiovascular: Regular rate and rhythm with a normal S1 and S2. No gallops, murmurs, or rubs. No pulse deficits. Respiratory: Respirations even and unlabored. No increased work of breathing. Talking in full sentences Skin: Warm, dry with normal turgor. Normal color. MS/ Extremity: Pulses equal, no cyanosis. Neurovascular intact. Full, normal range of motion. Neuro: Awake and alert, GCS 15, oriented to person, place, time, and situation. Moves all extremities. Normal gait. Psych: Awake, alert, with orientation to person, place and time. Behavior, mood, and affect are within normal limits. 11:11 Abdomen/GI: Inspection: abdomen appears normal, Bowel sounds: normal, in all quadrants, Palpation: soft, in all quadrants, moderate abdominal tenderness, in the right upper quadrant. Vital Signs: 11:01 BP 121 / 77; Pulse 85; Resp 18; Pulse Ox 98% on R/A; ic1 11:01 Temp 97.9; Weight 102.06 kg; Height 5 ft. 7 in. (170.18 cm); Pain 10/10; ll1 13:03 BP 102 / 59; Pulse 73; Resp 16; Pulse Ox 100% on R/A; ic1 11:01 Body Mass Index 35.24 (102.06 kg, 170.18 cm) ll1 MDM: 10:59 Patient medically screened. kb 11:11 Data reviewed: vital signs, nurses notes. Data interpreted: Pulse oximetry: on room air kb is 98 %. Interpretation: normal. 12:30 Counseling: I had a detailed discussion with the patient and/or guardian regarding: the kb historical points, exam findings, and any diagnostic results supporting the discharge/admit diagnosis, lab results, radiology results, the need for outpatient follow up, a general surgeon, to return to the emergency department if symptoms worsen or persist or if there are any questions or concerns that arise at home. 07/11 11:08 Order name: Basic Metabolic Panel; Complete Time: 12:30 kb 07/11 11:08 Order name: CBC with Diff; Complete Time: 11:37 kb 07/11 11:08 Order name: Hepatic Function; Complete Time: 12:30 kb 07/11 11:08 Order name: Lipase; Complete Time: 12:30 kb 07/11 11:22 Order name: Urine Dipstick-Ancillary; Complete Time: 11:30 EDMS 07/11 11:08 Order name: IV Saline Lock; Complete Time: 11:35 kb 07/11 11:08 Order name: Labs collected and sent; Complete Time: 11:35 kb 07/11 11:09 Order name: Urine Dipstick-Ancillary (obtain specimen) kb 07/11 11:09 Order name: Urine Test (obtain specimen) kb 07/11 11:11 Order name: US Abdomen Limited; Complete Time: 12:04 kb Administered Medications: 11:33 Drug: Ketorolac 30 mg Route: IVP; Site: right antecubital; ic1 11:34 Drug: Zofran (Ondansetron) 4 mg Route: IVP; Site: right antecubital; ic1 Disposition Summary: 07/11/21 12:41 Discharge Ordered Location: Home kb Condition: Stable kb Diagnosis - Other cholelithiasis without obstruction kb Followup: kb - With: Emergency Department - When: As needed - Reason: Worsening of condition Followup: kb - With: Private Physician - When: 2 - 3 days - Reason: Recheck today's complaints, Continuance of care, Re-evaluation by your physician Discharge Instructions: - Discharge Summary Sheet kb - Cholelithiasis, [id number] kb Forms: - Medication Reconciliation Form kb - Thank You Letter kb - Antibiotic Education kb - Prescription Opioid Use kb - Work release form ic1 Prescriptions: - Zofran 4 mg Oral Tablet - take 1 tablet by ORAL route every 6 hours As needed; 20 tablet; Refills: 0, kb Product Selection Permitted - dicyclomine 20 mg Oral Tablet - take 1 tablet by ORAL route 4 times per day As needed; 20 tablet; Refills: 0, kb Product Selection Permitted Addendum: 07/13/2021 07:07 Co-signature as Attending Physician, Ariel Solomon MD I agree with the assessment and c sanchez plan of care. Signatures: Dispatcher [employer] Carolina Stout, GARMENT SUPERVISOR-C GARMENT SUPERVISOR-Ariel Roman MD MD cha Lewis, Lynsay, RN RN ll1 Aydee Foley RN RN ic1
[2021-07-11 13:36] VITALS: TEMP 97.9
[2021-07-11 13:38] VITALS: BP 102/59; O2SAT 100
== END 2021-07-11 13:13 | disposition home or self-care (01) ==
LOC: ER 10:51
DX: K80.80 Other cholelithiasis without obstruction (principal); Z91.041 Radiographic dye allergy status
CPT/HCPCS: 36415; 76705; 80048; 80076; 81003; 83690; 85025; 96374; 96375; 99284; J2405

== ENCOUNTER 2021-10-10 04:49 | Emergency (ER) | payer SELFPAY ==
--- OUTSIDE RECORDS SUMMARY | 2021-10-10 04:54 | XMS REPORT | Continuity of Care Document ---
:1995 Author Organization [facility] t Address [address] [place] [address] Dr. Tate [address] [place] [id number] Care Team Providers Name Role Phone PCP, [...] Source Date Date Healthcare Agents on N/A [facility] ersity FileNameRelationshipHealthcare of [place] Agent Medical RelationshipCommunicationErlinda Branch NunezOtherFirst alternate healthcare [phone] (Mobile) Problems Condition Condition Condition Status Onset [...] ST[place] (sexually 00 [facility] kavon transmitte transmitte Br anch d disease) d disease) Well woman Well woman Disease Active 2017-06 U nivers exam exam 106 ity of 00:00: [place] 00 Medical Branch Contracept Contracept Disease Active 2017-06 U nivers debra debra 106 [place]y of management [place] Overweight Overweight Disease Active U nivers 2- ity of 00:00: [place] 00 Medical Branch BMI BMI Disease Active [...] Date Quantity Comments Source Exposure to Yes [facility] SARS-CoV-2 [place] [facility] (event) Branch Alcohol intake 2021-03-16 2021-03-16 Current drinker Unive rsity of 00:00:00 00:00:00 of alcohol [place] [facility] (finding) Branch History SDOH 2020-06-27 2020-06-27 3 University o f Alcohol Frequency 00:00:00 00:00:00 [place] [facility] ed[facility] Branch History SDOH 2020-06-27 2020-06-27 99 University o f Alcohol Std 00:00:00 00:00:00 [place] [facility] Drinks Branch History SDTN 2020-06-27 2020-06-27 99 University o f Alcohol Binge 00:00:00 00:00:00 [place] [facility] Alcohol Comment 2020-06-27 2020-06-27 on occassion, Univer sity of 00:00:00 00:00:00 liquor and beer [place] [facility] ical on occassions. Branch Tobacco use and 2016-02-11 2016-02-11 Never used Universit y of exposure 00:00:00 00:00:00 [facility] Sex Ass[birth year] At [birth year] Universit y of 00:00:00 00:00:00 [facility] Smoking Status Start Date Stop Date Source [facility] smoker [facility] Medications Ordered Filled Start Stop Current Ordering Indication Dosage Frequency Signature Comments Components Source Medication Medication Date Date Medication? Clinician (SIG) Name Name ibuprofen Yes [id number] 600mg Take 1 Univers 600 mg 9-27 [id number] tablet by ity of tablet 00:00: mouth [place] 00 every 6 Medical (six) Branch hours as needed for Pain (scale 4-6). ibuprofen Yes [id number] 600mg Take 1 Univers 600 mg 9-27 [id number] tablet by ity of tablet 00:00: mouth [place] 00 every 6 Medical (six) Branch hours as needed for Pain (scale 4-6). ibuprofen 2020-0 2020- No 600mg 600 mg, Uni vers (IBU) 02-19 Oral, ity of tablet 600 08:45: 07:44 ONCE, 1 [place] as mg 00 :00 dose, [facility] 02/19/21 at Branch 0345, DOUGLAS ibuprofen 2020-0 2020- No 600mg 600 mg, Uni vers (IBU) 02-19 Oral, ity of tablet 600 08:45: 07:44 ONCE, 1 [place] mg 00 :00 dose, [facility] 02/19/21 at Branch 0345, DOUGLAS omeprazole 2020-0 Yes 10mg Take 10 mg U nivers 10 mg 1-07 by mouth ity of capsule 21:45: daily. [address] omeprazole 2020-0 Yes 10mg Take 10 mg U nivers 10 mg 1-07 by mouth ity of capsule 21:45: daily. [address] cetirizine 0 Yes Take by Uni vers HCl (ZYRTEC 1-07 mouth. ity of ORAL) 21:45: [address] cetirizine 2020-0 Yes Take by Uni vers HCl (ZYRTEC 1-07 mouth. ity of ORAL) 21:45: [address] omeprazole 2020-0 Yes 10mg Take 10 mg U nivers 10 mg 1-07 by mouth ity of capsule 21:45: daily. [address] cetirizine 2020-0 Yes Take by Uni vers HCl (ZYRTEC 1-07 mouth. ity of ORAL) 21:45: [address] omeprazole 2020-0 Yes 10mg Take 10 mg U nivers 10 mg 1-07 by mouth ity of capsule 21:45: daily. [address] cetirizine 2020-0 Yes Take by Uni vers HCl (ZYRTEC 1-07 mouth. ity of ORAL) 21:45: [address] omeprazole 2020-0 Yes 10mg Take 10 mg U nivers 10 mg 1-07 by mouth ity of capsule 21:45: daily. [address] cetirizine 2020-0 Yes Take by Uni vers HCl (ZYRTEC 1-07 mouth. ity of ORAL) 21:45: [address] omeprazole 2020-0 Yes 10mg Take 10 mg U nivers 10 mg 1-07 by mouth ity of capsule 21:45: daily. [address] cetirizine 2020-0 Yes Take by Uni vers HCl (ZYRTEC 1-07 mouth. ity of ORAL) 21:45: [address] omeprazole 2020-0 Yes 10mg Take 10 mg U nivers 10 mg 1-07 by mouth ity of capsule 21:45: daily. [address] cetirizine 2020-0 Yes Take by Uni vers HCl (ZYRTEC 1-07 mouth. ity of ORAL) 21:45: [address] omeprazole 2020-0 Yes 10mg Take 10 mg U nivers 10 mg 1-07 by mouth ity of capsule 15:45: daily. [address] cetirizine 2020-0 Yes Take by Uni vers HCl (ZYRTEC 1-07 mouth. ity of ORAL) 15:45: [address] omeprazole 2020-0 Yes 10mg Take 10 mg U nivers 10 mg 1-07 by mouth ity of capsule 15:45: daily. [address] cetirizine 2020-0 Yes Take by Uni vers HCl (ZYRTEC 1-07 mouth. ity of ORAL) 15:45: [address] FENTanyl PF 2019-06- No 50ug 50 mcg, Un phuong (SUBLIMAZE 0-08 10-08 Slow IV ity o f (PF)) 05:45: 05:13 [place], [place] injection 00 :00 ONCE, 1 Medical 50 mcg dose, [facility] 03/28/20 at 0045, STAT metoclopram 2019-06- No 10mg 10 mg, Uni vers julia HCl 0-08 10-08 Slow IV ity of (REGLAN) 02:15: 01:29 [place], [place] injection 00 :00 ONCE, 1 Medical 10 mg dose, [facility] 03/27/20 at 2115, DOUGLAS diphenhydrA 2019-06- No 25mg 25 mg, Uni vers MINE 0-08 10-08 Slow IV ity of (BENADRYL) 02:15: 01:29 [place], [place] injection 00 :00 ONCE, 1 Medical 25 mg dose, [facility] 03/27/20 at 2115, STAT ketorolac 2019-06 No 30mg 30 mg, Unive rs (TORADOL) 0-08 10-08 Slow IV ity of injection 02:15: 01:29 Push, [place] 30 mg 00 :00 ONCE, 1 Medical dose, Wed Branch 03/27/20 at 2115, [facility]GL[facility] : Sam KEMP NaCl 0.9% 2019-06- No 1000mL at 999 Uni vers (NS) bolus 0-08 10-08 mL/hr, ity of infusion 02:15: 03:33 1,000 mL, [place] as 1,000 mL 00 :00 IV Medical Infusion, Branch ONCE, 1 dose, 03/27/20 at 2115, STAT ibuprofen 2019-06 Yes [id number] 600mg Take 1 Univers 600 mg 0-07 tablet by ity of tablet 00:00: mouth [place] 00 every 6 Medical (six) Branch hours as needed for Pain (scale 4-6). ondansetron 2019-06 Yes [id number] 4mg Take 1 Univers (ZOFRAN 0-07 tablet by ity of ODT) 4 mg 00:00: mouth [place] disintegrat 00 every 8 Medic al ing tablet (eight) Branch hours as needed for Nausea and Vomiting (N/V). ibuprofen 2019-06 No [id number] 600mg Take 1 Univers 600 mg 0-07 01-07 tablet by ity of tablet 00:00: 00:00 mouth [place] 00 :00 every 6 Medical (six) Branch hours as needed for Pain (scale 4-6). ondansetron 2019-06 No [id number] 4mg Take 1 Univers (ZOFRAN 0-07 01-07 tablet by ity of ODT) 4 mg 00:00: 00:00 mouth [place] disintegrat 00 :00 every 8 Medic al ing tablet (eight) Branch hours as needed for Nausea and Vomiting (N/V). ibuprofen 2019-06- No [id number] 600mg Take 1 Univers 600 mg 0-07 01-07 tablet by ity of tablet 00:00: 00:00 mouth [place] 00 :00 every 6 Medical (six) Branch hours as needed for Pain (scale 4-6). ondansetron 2019-06 No [id number] 4mg Take 1 Univers (ZOFRAN 0-07 -07 [...] ity of mg 08:00: 06:57 ONCE, 1 [place] 00 :00 dose, Tue Medical 12/05/19 at Branch 0300, STAT NaCl 0.9% 2019- No 1000mL at 999 Uni vers (NS) bolus 12-04 mL/hr, ity of infusion 07:00: 08:35 1,000 mL, [place] 1,000 mL 00 :00 IV Medical Infusion, Branch ONCE, 1 dose, 12/05/19 at 0200, DOUGLAS traMADol 50 2020-0 Yes [id number] 50mg Take 1 Univers mg tablet 6-16 tablet by ity o f 00:00: mouth [place] 00 every 6 Medical (six) Branch hours as needed (pain). proMETHazin 2020-0 Yes [id number] 25mg Take 1 Univers e 25 mg 6-16 tablet by ity of tablet 00:00: mouth [place] 00 every 6 Medical (six) Branch hours as needed for Nausea and Vomiting (N/V). traMADol 50 2020-0 Yes [id number] 50mg Take 1 Univers mg tablet 6-16 tablet by ity o f 00:00: mouth [place] 00 every 6 Medical (six) Branch hours as needed (pain). proMETHazin 2020-0 Yes [id number] 25mg Take 1 Univers e 25 mg 6-16 tablet by ity of tablet 00:00: mouth [place] 00 every 6 Medical (six) Branch hours as needed for Nausea and Vomiting (N/V). traMADol 50 2019-0 2020- No [id number] 50mg Take 1 Univers mg tablet 12-04 tablet by ity of 00:00: 00:00 mouth [place] 00 :00 every 6 Medical (six) Branch hours as needed (pain). proMETHazin 2019- No [id number] 25mg Take 1 Univers e 25 mg 12-04 tablet by ity of tablet 00:00: 00:00 mouth [place] 00 :00 every 6 Medical (six) Branch hours as needed for Nausea and Vomiting (N/V). traMADol 50 No [id number] 50mg Take 1 Univers mg tablet 12-04 tablet by ity of 00:00: 00:00 mouth [place] 00 :00 every 6 Medical (six) Branch hours as needed (pain). proMETHazin 2019- [id number] 25mg Take 1 Univers e 25 mg [...] 11/15/19 at 2115, STAT ibuprofen 2019- Yes [id number] 600mg Take 1 U nivers 600 mg 5-27 tablet by ity of tablet 00:00: mouth [place] 00 every 6 Medical (six) Branch hours as needed for Pain (scale 4-6). acetaminoph 2019- Yes [id number] 1{tbl} Take 1 Univers en-codeine 5-27 tablet by ity of 300-30 mg 00:00: mouth [place] tablet 00 every 4 Medical (four) Branch hours as needed for Pain (scale 4-6). ibuprofen Yes [id number] 600mg Take 1 U nivers 600 mg 5-27 tablet by ity of tablet 00:00: mouth [place] 00 every 6 Medical (six) Branch hours as needed for Pain (scale 4-6). acetaminoph Yes [id number] 1{tbl} Take 1 Univers en-codeine 5-27 tablet by ity of 300-30 mg 00:00: mouth [place] tablet 00 every 4 Medical (four) Branch hours as needed for Pain (scale 4-6). ibuprofen Yes [id number] 600mg Take 1 U nivers 600 mg 5-27 tablet by ity of tablet 00:00: mouth [place] 00 every 6 Medical (six) Branch hours as needed for Pain (scale 4-6). acetaminoph Yes [id number] 1{tbl} Take 1 Univers en-codeine 5-27 tablet by ity of 300-30 mg 00:00: mouth [place] tablet 00 every 4 Medical (four) Branch hours as needed for Pain (scale 4-6). ibuprofen 2020- No [id number] 600mg Take 1 Univers 600 mg 5-27 01-07 tablet by ity of tablet 00:00: 00:00 mouth [place] 00 :00 every 6 Medical (six) Branch hours as needed for Pain (scale 4-6). acetaminoph 2019-2020- No [id number] 1{tbl} Take 1 Univers en-codeine 5-27 01- tablet by ity of 300-30 mg 00:00: 00:00 mouth [place] tablet 00 :00 every 4 Medical (four) Branch hours as needed for Pain (scale 4-6). ibuprofen 2019- No [id number] 600mg Take 1 Univers 600 mg 11-14- tablet by ity of tablet 00:00: 00:00 mouth [place] 00 :00 every 6 Medical (six) Branch hours as needed for Pain (scale 4-6). acetaminoph 2019-2020- No [id number] 1{tbl} Take 1 Univers en-codeine 11-14- tablet [...] :00 ONCE, 1 Medical 20 mg dose, [facility] Branch 10/19/19 at 0545, DOUGLAS NaCl 0.9% [...] Trista Med ical ing tablet 08/31/19 at [facility] 4 mg 0515, Routine ondansetron 2020-0 Yes [id number] 4mg Take 1 Univers 4 mg 3-12 tablet by ity of disintegrat 00:00: mouth [place] ing tablet 00 every 4 Medica l (four) Branch hours as needed for Nausea and Vomiting (N/V). acetaminoph 2020-0 Yes [id number] 1{tbl} Take 1-2 Univers en-codeine 3-12 tablets by ity of 300-30 mg 00:00: mouth [place] tablet 00 every 6 Medical (six) Branch hours as needed (cough). ibuprofen 2020-0 Yes [id number] 800mg Take 1 U nivers 800 mg 3-12 tablet by ity of tablet 00:00: mouth [place] 00 every 8 Medical (eight) Branch hours as needed for Pain (scale 4-6). ondansetron 2020-0 Yes [id number] 4mg Take 1 Univers 4 mg 3-12 tablet by ity of disintegrat 00:00: mouth [place] ing tablet 00 every 4 Medica l (four) Branch hours as needed for Nausea and Vomiting (N/V). acetaminoph 2020-0 Yes [id number] 1{tbl} Take 1-2 Univers en-codeine 3-12 tablets by ity of 300-30 mg 00:00: mouth [place] tablet 00 every 6 Medical (six) Branch hours as needed (cough). ibuprofen 2020-0 Yes [id number] 800mg Take 1 U nivers 800 mg 3-12 tablet by ity of tablet 00:00: mouth [place] 00 every 8 Medical (eight) Branch hours as needed for Pain (scale 4-6). ondansetron 2020-0 Yes [id number] 4mg Take 1 Univers 4 mg 3-12 tablet by ity of disintegrat 00:00: mouth [place] ing tablet 00 every 4 Medica l (four) Branch hours as needed for Nausea and Vomiting (N/V). acetaminoph 2020-0 Yes [id number] 1{tbl} Take 1-2 Univers en-codeine 3-12 tablets by ity of 300-30 mg 00:00: mouth [place] tablet 00 every 6 Medical (six) Branch hours as needed (cough). ibuprofen 2020-0 Yes [id number] 800mg Take 1 U nivers 800 mg 3-12 tablet by ity of tablet 00:00: mouth [place] 00 every 8 Medical (eight) Branch hours as needed for Pain (scale 4-6). ondansetron 2020-0 Yes [id number] 4mg Take 1 Univers 4 mg 3-12 tablet by ity of disintegrat 00:00: mouth [place] ing tablet 00 every 4 Medica l (four) Branch hours as needed for Nausea and Vomiting (N/V). acetaminoph 2020-0 Yes [id number] 1{tbl} Take 1-2 Univers en-codeine 3-12 tablets by ity of 300-30 mg 00:00: mouth [place] tablet 00 every 6 Medical (six) Branch hours as needed (cough). ibuprofen 2020-0 Yes [id number] 800mg Take 1 U nivers 800 mg 3-12 tablet by ity of tablet 00:00: mouth [place] 00 every 8 Medical (eight) Branch hours as needed for Pain (scale 4-6). ondansetron 2020-0 Yes [id number] 4mg Take 1 Univers 4 mg 3-12 tablet by ity of disintegrat 00:00: mouth [place] ing tablet 00 every 4 Medica l (four) Branch hours as needed for Nausea and Vomiting (N/V). acetaminoph 2020-0 Yes [id number] 1{tbl} Take 1-2 Univers en-codeine 3-12 tablets by ity of 300-30 mg 00:00: mouth [place] tablet 00 every 6 Medical (six) Branch hours as needed (cough). ibuprofen Yes [id number] 800mg Take 1 U nivers 800 mg 3-12 tablet by ity of tablet 00:00: mouth [place] 00 every 8 Medical (eight) Branch hours as needed for Pain (scale 4-6). ondansetron 2020- No [id number] 4mg Take 1 Univers 4 mg 3-12 - tablet by ity of disintegrat 00:00: 00:00 [place] tablet 00 :00 every 4 Medica l (four) Branch hours as needed for Nausea and Vomiting (N/V). acetaminoph 2020- No [id number] 1{tbl} Take 1-2 Univers en-codeine 3-05 21- tablets by it y of 300-30 mg 00:00: 00:00 mouth [place] tablet 00 :00 every 6 Medical (six) Branch hours as needed (cough). ibuprofen No [id number] 800mg Take 1 Univers 800 mg 3-12 - tablet by ity of tablet 00:00: 00:00 mouth [place] 00 :00 every 8 Medical (eight) Branch hours as needed for Pain (scale 4-6). ondansetron 2020- No [id number] 4mg Take 1 Univers 4 mg 3-12 - tablet by ity of disintegrat 00:00: 00:00 [place] tablet 00 :00 every 4 Medica l (four) Branch hours as needed for Nausea and Vomiting (N/V). acetaminoph No [id number] 1{tbl} Take 1-2 Univers en-codeine 3-05 21-07 tablets by it y of 300-30 mg 00:00: 00:00 mouth [place] tablet 00 :00 every 6 Medical (six) Branch hours as needed (cough). ibuprofen 2020- No [id number] 800mg Take 1 Univers 800 mg 3-12 -07 tablet by ity of tablet 00:00: 00:00 mouth [place] 00 :00 every 8 Medical (eight) Branch hours as needed for Pain (scale 4-6). sod 2018-06 Yes [id number] 1{bottl Use 1 Unive rs chlor-bicar 2-20 e} Bottle in ity of b-squeez 00:00: each [place] bottle 00 nostril 2 Medical (NEILMED (two) Branch SINUS RINSE times COMPLETE) daily. Use pkdv in hot shower 1 hour before bedtime promethazin 2018-06 Yes [id number] 5mL Take 5 mL Univers e-codeine 2-20 by mouth 4 ity of 6.25-10 00:00: (four) [place] mg/5 mL 00 times Medical syrup daily as Branch needed for Cough. sod 2018-06 Yes [id number] 1{bottl Use 1 Unive rs chlor-bicar 2-20 e} Bottle in ity of b-squeez 00:00: each [place] bottle 00 nostril 2 Medical (NEILMED (two) Branch SINUS RINSE times COMPLETE) daily. Use pkdv in hot shower 1 hour before bedtime promethazin 2018-06 Yes [id number] 5mL Take 5 mL Univers e-codeine 2-20 by mouth 4 ity of 6.25-10 00:00: (four) [place] mg/5 mL 00 times Medical syrup daily as Branch needed for Cough. sod 2018-06 Yes [id number] 1{bottl Use 1 Unive rs chlor-bicar 2-20 e} Bottle in ity of b-squeez 00:00: each [place] bottle 00 nostril 2 Medical (NEILMED (two) Branch SINUS RINSE times COMPLETE) daily. Use pkdv in hot shower 1 hour before bedtime promethazin 2018-06 Yes [id number] 5mL Take 5 mL Univers e-codeine 2-20 by mouth 4 ity of 6.25-10 00:00: (four) [place] mg/5 mL 00 times Medical syrup daily as Branch needed for Cough. sod 2018-06 Yes [id number] 1{bottl Use 1 Unive rs chlor-bicar 2-20 e} Bottle in ity of b-squeez 00:00: each [place] bottle 00 nostril 2 Medical (NEILMED (two) Branch SINUS RINSE times COMPLETE) daily. Use pkdv in hot shower 1 hour before bedtime promethazin 2018-06 Yes [id number] 5mL Take 5 mL Univers e-codeine 2-20 by mouth 4 ity of 6.25-10 00:00: (four) [place] mg/5 mL 00 times Medical syrup daily as Branch needed for Cough. sod 2018-06 Yes [id number] 1{bottl Use 1 Unive rs chlor-bicar 2-20 e} Bottle in ity of b-squeez 00:00: each [place] bottle 00 nostril 2 Medical (NEILMED (two) Branch SINUS RINSE times COMPLETE) daily. Use pkdv in hot shower 1 hour before bedtime promethazin 2018-06 Yes [id number] 5mL Take 5 mL Univers e-codeine 2-20 by mouth 4 ity of 6.25-10 00:00: (four) [place] mg/5 mL 00 times Medical syrup daily as Branch needed for Cough. sod 2018-06- No [id number] 1{bottl Use 1 Univ ers chlor-bicar 2-20 - e} Bottle in it y of b-squeez 00:00: 00:00 each [place] bottle 00 :00 nostril 2 Medical (NEILMED (two) Branch SINUS RINSE times COMPLETE) daily. Use pkdv in hot shower 1 hour before bedtime promethazin 2018-06- No [id number] 5mL Take 5 mL Univers e-codeine 2-20 -07 by mouth 4 ity of 6.25-10 00:00: 00:00 (four) [place] mg/5 mL 00 :00 times Medical syrup daily as Branch needed for Cough. sod 2018-06- No [id number] 1{bottl Use 1 Univ ers chlor-bicar 2-20 - e} Bottle in it y of b-squeez 00:00: 00:00 each [place] bottle 00 :00 nostril 2 Medical (NEILMED (two) Branch SINUS RINSE times COMPLETE) daily. Use pkdv in hot shower 1 hour before bedtime promethazin 2018-06- No [id number] 5mL Take 5 mL Univers e-codeine 2-20 -07 by mouth 4 ity of 6.25-10 00:00: 00:00 (four) [place] mg/5 mL 00 :00 times Medical syrup daily as Branch needed for Cough. traMADol 2018-06 Yes [id number] 50mg Take 1 Univers (ULTRAM) 50 1 [id number] tablet by i ty of mg tablet 00:00: mouth [place] 00 every 8 Medical (eight) Branch hours as needed for Pain (scale 4-6). traMADol 2018-06 Yes [id number] 50mg Take 1 Univers (ULTRAM) 50 - [id number] tablet by i ty of mg tablet 00:00: mouth [place] 00 every 8 Medical (eight) Branch hours as needed for Pain (scale 4-6). traMADol 2018-06 Yes [id number] 50mg Take 1 Univers (ULTRAM) 50 - [id number] tablet by i ty of mg tablet 00:00: mouth [place] 00 every 8 Medical (eight) Branch hours as needed for Pain (scale 4-6). traMADol 2018-06 Yes [id number] 50mg Take 1 Univers (ULTRAM) 50 07-11 [id number] tablet by i ty of mg tablet 00:00: mouth [place] 00 every 8 Medical (eight) Branch hours as needed for Pain (scale 4-6). traMADol 2018-06 Yes [id number] 50mg Take 1 Univers (ULTRAM) 50 - [id number] tablet by i ty of mg tablet 00:00: mouth [place] 00 every 8 Medical (eight) Branch hours as needed for Pain (scale 4-6). traMADol 2018-06- No [id number] 50mg Take 1 Univers (ULTRAM) 50 07-11 [id number] tablet by ity of mg tablet 00:00: 00:00 mouth [place] 00 :00 every 8 Medical (eight) Branch hours as needed for Pain (scale 4-6). traMADol 2018-06- No [id number] 50mg Take 1 Univers (ULTRAM) 50 07-11 [id number] tablet by ity of mg tablet 00:00: 00:00 mouth [place] 00 :00 every 8 Medical (eight) Branch hours as needed for Pain (scale 4-6). traMADol Yes [id number] 50mg Take 1 Univers (ULTRAM) 50 - [id number] tablet by i ty of mg tablet 00:00: mouth [place] 00 every 8 Medical (eight) Branch hours as needed for Pain (scale 4-6). ibuprofen Yes [id number] 600mg Take 1 Univers 600 mg 8- [id number] tablet by ity of tablet 00:00: mouth 4 [place] 00 (four) Medical times Branch daily as needed for Pain (scale 4-6). acetaminoph Yes [id number] 975mg Take 3 Univers en 01-29 [id number] tablets by ity of (TYLENOL) 00:00: mouth 4 [place] 325 mg 00 (four) Medical tablet times Branch daily. This is the maximum safe dose for a healthy adult. ibuprofen 2019- No [id number] 600mg Take 1 Univers 600 mg 01-29 [id number] tablet by ity o f tablet 00:00: 00:00 mouth 4 [place] 00 :00 (four) Medical times Branch daily as needed for Pain (scale 4-6) for up to 5 days. acetaminoph 2018- No [id number] 975mg Take 3 Univers en 01-29 [id number] tablets by ity of (TYLENOL) 00:00: 00:00 mouth 4 [place] 325 mg 00 :00 (four) Medical tablet times Branch daily for 5 days. This is the maximum safe dose for a healthy adult. traMADol 2018- No [id number] 50mg Take 1 Univers (ULTRAM) 50 01-29 [id number] tablet by ity of mg tablet 00:00: 00:00 mouth [place] 00 :00 every 8 Medical (eight) Branch hours as needed for Pain (scale 4-6). medroxyPROG 2017-06 2019- No [id number] 150mg Univers ESTERone 06-26-08 ity of (DEPO-PROVE 22:15: 21:14 [place] RA) 00 :00 Medical injection Branch 150 mg medroxyPROG 2017-06- No [id number] 150mg Univers ESTERone 06-26-08 ity of (DEPO-PROVE [...] Immunizations Ordered Filled Immunization Date Status [facility] e Immunization Name Name HPV9 2020-06-27 Completed University of 00:00:00 [facility]9 2020-06-27 Completed University of 00:00:00 [place] [facility] HPV9 2020-06-27 Completed University of 00:00:00 [facility]9 2020-06-27 Completed University of 00:00:00 [facility] Branch [facility] 2020-06-27 Completed University of 00:00:00 [facility] Branch HPV9 2020-06-27 Completed University of 00:00:00 [facility] Branch [facility] 2020-06-27 Completed University of 00:00:00 [facility] Branch HPV9 2020-06-27 Completed University of 00:00:00 [facility] 2020-06-27 Completed University of 00:00:00 [facility] Tdap 2017-12-21 Completed University of 00:00:00 [facility] Tdap 2017-12-21 Completed University of 00:00:00 [facility] Tdap 2017-12-21 Completed University of 00:00:00 [facility] Tdap 2017-12-21 Completed University of 00:00:00 [facility] TDAP 2017-12-21 Completed University of 00:00:00 [facility] TDAP 2017-12-21 Completed University of 00:00:00 [facility] TDAP 2017-12-21 Completed University of 00:00:00 [facility] TDAP 2017-12-21 Completed University of 00:00:00 [facility] TDAP 2017-12-21 Completed University of 00:00:00 [facility] TDAP 2017-12-21 Completed University of 00:00:00 [facility] TDAP 2017-12-21 Completed University of 00:00:00 [facility] TDAP 2017-12-21 Completed University of 00:00:00 [facility] Branch TDAP 2017-12-21 Completed University of 00:00:00 [facility] Branch TDAP 2017-12-21 Completed University of 00:00:00 [facility] Branch Tdap 2017-12-21 Completed University of 00:00:00 [facility] Tdap 2017-12-21 Completed University of 00:00:00 [facility] Tdap 2016-07-09 Completed University of 00:00:00 [facility] Branch Tdap 2016-07-09 Completed University of 00:00:00 [facility] Tdap 2016-07-09 Completed University of 00:00:00 [facility] Tdap 2016-07-09 Completed University of 00:00:00 [facility] TDAP 2016-07-09 Completed University of 00:00:00 [facility] TDAP 2016-07-09 Completed University of 00:00:00 [facility] TDAP 2016-07-09 Completed University of 00:00:00 [facility] TDAP 2016-07-09 Completed University of 00:00:00 [facility] TDAP 2016-07-09 Completed University of 00:00:00 [facility] TDAP 2016-07-09 Completed University of 00:00:00 [facility] TDAP 2016-07-09 Completed University of 00:00:00 [facility] TDAP 2016-07-09 Completed University of 00:00:00 [facility] TDAP 2016-07-09 Completed University of 00:00:00 [facility] TDAP 2016-07-09 Completed University of 00:00:00 [facility] Tdap 2016-07-09 Completed University of 00:00:00 [facility] Tdap 2016-07-09 Completed University of 00:00:00 [facility] Influenza Virus 2016-03-25 Completed Universit y of Vaccine Quad IM 3+ 00:00:00 [facility] Influenza Virus 2016-03-25 Completed Universit y of Vaccine Quad IM 3+ 00:00:00 [facility] Influenza Virus 2016-03-25 Completed Universit y of Vaccine Quad IM 3+ 00:00:00 [facility] Influenza Virus 2016-03-25 Completed Universit y of Vaccine Quad IM 3+ 00:00:00 [facility] Influenza Virus 2016-03-25 Completed Universit y of Vaccine Quad IM 3+ 00:00:00 [facility] Influenza Virus 2016-03-25 Completed Universit y of Vaccine Quad IM 3+ 00:00:00 [facility] Influenza Virus 2016-03-25 Completed Universit y of Vaccine Quad IM 3+ 00:00:00 [facility] Influenza Virus 2016-03-25 Completed Universit y of Vaccine Quad IM 3+ 00:00:00 [facility] Influenza Virus 2016-03-25 Completed Universit y of Vaccine Quad IM 3+ 00:00:00 [facility] Influenza Virus 2016-03-25 Completed Universit y of Vaccine Quad IM 3+ 00:00:00 [facility] Influenza Virus 2016-03-25 Completed Universit y of Vaccine Quad IM 3+ 00:00:00 [facility] Influenza Virus 2016-03-25 Completed Universit y of Vaccine Quad IM 3+ 00:00:00 [facility] Influenza Virus 2016-03-25 Completed Universit y of Vaccine Quad IM 3+ 00:00:00 [facility] Influenza Virus 2016-03-25 Completed Universit y of Vaccine Quad IM 3+ 00:00:00 [facility] Influenza Virus 2016-03-25 Completed Universit y of Vaccine Quad IM 3+ 00:00:00 [facility] Influenza Virus 2016-03-25 Completed Universit y of Vaccine Quad IM 3+ 00:00:00 [facility] Vital Signs Vital Name Observation Time Observation Value Comments Source Systolic blood 2021-03-17 06:16:16 119 mm[Hg] Univer sity of pressure [facility] Diastolic blood 2021-03-17 06:16:16 78 mm[Hg] Unive rsity of [facility] Heart rate 2021-03-17 06:16:16 66 /min [facility] Respiratory rate 2021-03-17 06:16:16 18 /min [facility] Oxygen saturation in 2021-03-17 06:16:16 98 /min [facility] Arterial blood by [facility] Pulse oximetry [place] Body temperature 2021-03-17 03:36:00 37.17 Sandhya [facility] Body height 2021-03-17 03:36:00 170.2 cm [facility] Body weight 2021-03-17 03:36:00 101.379 kg [facility] BMI 2021-03-17 03:36:00 35.01 kg/m2 [facility] Systolic blood 2021-02-19 07:32:00 125 mm[Hg] Univer sity of pressure [facility] Diastolic blood 2021-02-19 07:32:00 83 mm[Hg] Unive rsity of pressure [facility] Heart rate 2021-02-19 07:32:00 75 /min [facility] Body temperature 2021-02-19 07:32:00 36.83 Sandhya Univ ersity of [facility] Respiratory rate 2021-02-19 07:32:00 22 /min Univ ersity of [facility] Body weight 2021-02-19 07:32:00 99.791 kg [facility] BMI 2021-02-19 07:32:00 35.51 kg/m2 Universi ty of [facility] Oxygen saturation in 2021-02-19 07:32:00 100 /min University Arterial blood by [facility] Pulse oximetry Branch Systolic blood 2020-06-27 21:28:00 115 mm[Hg] Univer sity of pressure [facility] Diastolic blood 2020-06-27 21:28:00 71 mm[Hg] Unive rsity of pressure [facility] Heart rate 2020-06-27 21:28:00 73 /min Universi ty of [facility] Body temperature 2020-06-27 21:28:00 36.94 Sandhya Univ ersity of [facility] Respiratory rate 2020-06-27 21:28:00 16 /min Univ ersity of [facility] Body height 2020-06-27 21:28:00 167.6 cm [facility] [place] [facility] [place] Body weight 2020-06-27 21:28:00 99.565 kg [facility] BMI 2020-06-27 21:28:00 35.43 kg/m2 [facility] [place] Systolic blood 2020-06-27 21:28:00 115 mm[Hg] Univer sity of pressure [facility] Diastolic blood 2020-06-27 21:28:00 71 mm[Hg] Unive rsity of pressure [facility] Heart rate 2020-06-27 21:28:00 73 /min [facility] [place] [facility] [place] Body temperature 2020-06-27 21:28:00 36.94 Sandhya Univ ersity of [facility] Respiratory rate 2020-06-27 21:28:00 16 /min Univ ersity of [facility] Body height 2020-06-27 21:28:00 167.6 cm Universi ty of [facility] Body weight 2020-06-27 21:28:00 99.565 kg [facility] BMI 2020-06-27 21:28:00 35.43 kg/m2 [facility] Systolic blood 2020-03-28 05:38:00 113 mm[Hg] Univer sity of pressure [facility] Diastolic blood 2020-03-28 05:38:00 84 mm[Hg] Unive rsity of pressure [facility] Heart rate 2020-03-28 05:38:00 87 /min [facility] Respiratory rate 2020-03-28 05:38:00 18 /min Univ ersity of [facility] Oxygen saturation in 2020-03-28 05:38:00 100 /min University of Arterial blood by [place] [employer] kavon Pulse oximetry Branch Body temperature 2020-03-28 00:14:00 37.5 Sandhya Univ ersity [facility] Body height 2020-03-28 00:14:00 167.6 cm [facility] Body weight 2020-03-28 00:14:00 90.719 kg [facility] BMI 2020-03-28 00:14:00 32.28 kg/m2 [facility] Systolic blood 2019-12-05 08:44:00 105 mm[Hg] Univer sity of pressure [facility] Diastolic blood 2019-12-05 08:44:00 76 mm[Hg] Unive rsity of pressure [facility] Heart rate 2019-12-05 08:44:00 68 /min [facility] Body temperature 2019-12-05 08:44:00 36.22 Sandhya Univ ers[facility] Respiratory rate 2019-12-05 08:44:00 18 /min Univ ersity of [facility] Oxygen saturation in 2019-12-05 08:44:00 100 /min University of Arterial blood by [place] [employer] Pulse oximetry Branch Body height 2019-12-05 06:33:00 167.6 cm [facility] Body weight 2019-12-05 06:33:00 94.348 kg [facility] BMI 2019-12-05 06:33:00 33.57 kg/m2 [facility] Systolic blood 2019-11-16 04:00:00 122 mm[Hg] Univer sity of pressure [facility] Diastolic blood 2019-11-16 04:00:00 78 mm[Hg] Unive rsity of pressure [facility] Heart rate 2019-11-16 04:00:00 65 /min [facility] Respiratory rate 2019-11-16 04:00:00 18 /min Univ ersity [facility] Oxygen saturation in 2019-11-16 04:00:00 99 /min University of Arterial blood by [facility] Pulse oximetry Branch Body temperature 2019-11-15 23:51:00 37.06 Sandhya Univ ers[facility] Body height 2019-11-15 23:51:00 167.6 cm [facility] Body weight 2019-11-15 23:51:00 94.348 kg [facility] BMI 2019-11-15 23:51:00 33.57 kg/m2 [facility] Systolic blood 2019-10-19 11:00:00 122 mm[Hg] Univer sity of pressure [facility] Diastolic blood 2019-10-19 11:00:00 87 mm[Hg] Unive rsity of pressure [facility] Heart rate 2019-10-19 11:00:00 79 /min [facility] Respiratory rate 2019-10-19 11:00:00 21 /min Univ ersity [facility] Oxygen saturation in 2019-10-19 11:00:00 100 /min University of Arterial blood by [facility] Pulse oximetry Branch Body temperature 2019-10-19 09:39:00 36.83 Sandhya Univ ersity [facility] Body height 2019-10-19 09:39:00 167.6 cm [facility] Body weight 2019-10-19 09:39:00 95.255 kg [facility] BMI 2019-10-19 09:39:00 33.89 kg/m2 [facility] Systolic blood 2019-08-31 10:00:00 119 mm[Hg] Univer sity of pressure [facility] Diastolic blood 2019-08-31 10:00:00 68 mm[Hg] Unive rsity of pressure [facility] Heart rate 2019-08-31 10:00:00 89 /min [facility] Body temperature 2019-08-31 08:58:00 37.39 Sandhya Univ [facility] Respiratory rate 2019-08-31 08:58:00 14 /min Univ ersity [facility] Body height 2019-08-31 08:58:00 167.6 cm [facility] Body weight 2019-08-31 08:58:00 90.719 kg [facility] BMI 2019-08-31 08:58:00 32.28 kg/m2 Universi ty of [facility] Oxygen saturation in 2019-08-31 08:58:00 97 /min University of Arterial blood by [facility] Pulse oximetry Branch Body temperature 2019-01-29 20:06:00 36.94 Sandhya Univ ersity of [facility] Respiratory rate 2019-01-29 20:06:00 18 /min [facility] Body height 2019-01-29 20:06:00 167.6 cm [facility] [place] [facility] [place] Body weight 2019-01-29 20:06:00 87 kg [facility] [place] BMI 2019-01-29 20:06:00 30.96 kg/m2 Universi ty of [facility] Oxygen saturation in 2019-01-29 20:06:00 98 /min University of Arterial blood by [facility] Pulse oximetry Branch Systolic blood 2019-01-29 20:06:00 126 mm[Hg] Univer sity of pressure [facility] Diastolic blood 2019-01-29 20:06:00 78 mm[Hg] [facility] pressure [facility] Heart rate 2019-01-29 20:06:00 75 /min Universi ty of [facility] Procedures Procedure Date / Time Performing Clinician Source Performed XR FOREARM 2 VW RIGHT 2021-03-17 04:50:31 Sam Kemp [facility] XR HAND 3+ VW RIGHT 2021-03-17 04:19:27 [facility] CONSENT/REFUSAL FOR 2021-03-17 03:27:16 Doctor Unassigned, No [facility] [place] DI[facility]NOSIS AND TREATMENT Name [facility] NOTICE OF PRIVACY 2021-02-19 07:22:51 Doctor Unassigned, No [facility] CONSENT/REFUSAL FOR 2021-02-19 07:22:35 Doctor Unassigned, No Un iversity [facility] DIAGNOSIS AND TREATMENT [facility] POCT TEST 2020-06-27 22:14:00 Wilbert Willough[facility] HIV 1/2 AG-AB WITH 2020-06-27 22:13:00 Wilbert Willoughby [facility] REFLEX [facility] GARDASIL 9 (HPV 9V) 2020-06-27 22:00:47 Wilbert Willoughby [facility] VACCINE [facility] CT ABDOMEN PELVIS WO 2020-03-28 03:42:05 Sam Kemp [facility] CONTRAST [facility] US GALL BLADDER 2020-03-28 03:06:15 Salvatore [facility] LIPASE 2020-03-28 01:18:00 Salvatore [facility] MAGNESIUM 2020-03-28 01:18:00 Salvatore [facility] COMP. METABOLIC PANEL 2020-03-28 01:18:00 Sam Kemp [place] [facility] ([id number]) Medical Branch CBC WITH DIFF 2020-03-28 01:18:00 Salvatore [facility] URINALYSIS 2020-03-28 01:18:00 Salvatore [facility] COVID-19 (ID NOW RAPID 2020-03-28 01:18:00 Sam Kemp [place] [facility] TESTING) Medical [place] POCT TEST 2020-03-28 01:17:00 Sam Kemp [facility] CONSENT/REFUSAL FOR 2020-03-28 00:05:35 Doctor Unassigned, No Un [facility] DIAGNOSIS AND TREATMENT Name Medical Branch US GALL BLADDER 2019-12-05 07:51:00 Radha Grider [facility] COVID-19 (ID NOW RAPID 2019-12-05 07:03:00 Radha Grider [facility] TESTING) Medical Branch LIPASE 2019-12-05 06:37:00 Radha Grider [facility] TEST, SERUM 2019-12-05 06:37:00 Radha Grider [facility] HEPATIC FUNCTION PANEL 2019-12-05 06:37:00 Radha Grider [facility] ([id number]) (ALB,T.PRO,BILI Medical Branch T,BU/BC,ALT,AST,ALK PHOS) BASIC METABOLIC PANEL 2019-12-05 06:37:00 Shruthi [facility] (NA, K, CL, CO2, Medical Branch GLUCOSE, BUN, CREATININE, CA) CBC WITH DIFFERENTIAL 2019-12-05 06:37:00 Shruthi [facility] URINALYSIS 2019-12-05 06:37:00 Shruthi [facility] NOTICE OF PRIVACY 2019-12-05 06:13:37 Doctor Unassigned, No [facility] PRACTICES Name [facility] CONSENT/REFUSAL FOR 2019-12-05 06:13:05 Doctor Unassigned, No [facility] Name [facility] CT ABDOMEN PELVIS WO 2019-11-16 04:00:55 Sam Kemp [facility] CONTRAST [facility] POCT TEST 2019-11-16 03:26:00 Sam Kemp [facility] US GALL BLADDER 2019-11-16 02:38:56 Sam Kemp [facility] XR CHEST 1 VW 2019-11-16 01:09:53 Ian Greene [facility] PROTHROMBIN TIME / INR 2019-11-16 00:24:00 Ian Greene [facility] ACTIVATED PARTIAL 2019-11-16 00:24:00 Ian Greene [facility] THRMPLAS KEESHA [facility] Branch LIPASE 2019-11-16 00:21:00 Ian Greene [facility] TROPONIN I 2019-11-16 00:21:00 Ian Greene [facility] COMP. METABOLIC PANEL 2019-11-16 00:21:00 Ian Greene [facility] ([id number]) Medical Branch CBC WITH DIFFERENTIAL 2019-11-16 00:21:00 Ian Greene [facility] EKG-12 LEAD 2019-11-16 00:13:51 Ian Greene [facility] CONSENT/REFUSAL FOR 2019-11-15 23:43:02 Doctor Unassigned, No [facility] Name Medical Branch XR CHEST 1 VW 2019-10-19 10:55:14 Luisa Luna [facility] CORONAVIRUS COVID-19 2019-10-19 10:25:00 Luisa Luna [facility] TESTING [facility] POCT TEST 2019-10-19 10:18:00 Luisa Luna [facility] LIPASE 2019-10-19 10:17:00 Luisa Luna [facility] TROPONIN I 2019-10-19 10:17:00 Luisa Luna [facility] COMP. METABOLIC PANEL 2019-10-19 10:17:00 Luisa Luna [facility] ([id number]) [facility] CBC WITH DIFFERENTIAL 2019-10-19 10:17:00 Luisa Luna [facility] URINALYSIS 2019-10-19 10:17:00 Liusa Luna [facility] EKG-12 LEAD 2019-10-19 09:42:33 Luisa Luna [facility] XR CHEST 1 VW 2019-08-31 09:14:47 [facility] RAPID STREP SCREEN FOR 2019-08-31 09:08:00 Jessica Bob [facility] GROUP A [facility] ADC,CLC OR LCC ONLY - 2019-08-31 09:08:00 Jessica Bob [facility] INFLUENZA A & B DIRECT Medical [place] ANTIGEN NOTICE OF PRIVACY 2019-08-31 08:52:15 Doctor Unassigned, No [facility] PRACTICES Name Medical Branch CONSENT/REFUSAL FOR 2019-08-31 08:51:56 [facility]igned, [facility]REATMENT Name Medical Branch XR FOREARM 2 VW RIGHT 2019-01-29 20:53:12 Manan Arce [facility] XR HAND 3+ VW RIGHT 2019-01-29 20:53:12 Manan Arce [facility] ED ORTHOPEDIC INJURY 2019-01-29 19:59:18 Manan Arce [facility] TREATMENT - UPPER [facility] EXTREMITY NOTICE OF PRIVACY 2019-01-29 19:47:11 Doctor Unassigned, No [facility] Name [facility] CONSENT/REFUSAL FOR 2019-01-29 19:46:56 Doctor Unassigned, No [facility] DI[facility] TREATMENT Name [facility] Encounters Start End Encounter Admission Attending Care Care Encounter Source Date/Time Date/Time Type Type Clinicians Facility Department ID 2021-04-22 Emergency [facility] [id number] Univers 01:27:59 ity [facility] 2021-04-21 Emergency [facility] [id number] Univers 19:32:10 ity of [facility] 2021-04-18 Emergency [facility] [id number] Univers [facility] 2021-03-21 2021-03-21 Outpatient Alannah PILLAI [facility] [id number] Univers 14:45:00 14:45:00 PETE [id number] saqiby o f [facility] 2021-03-21 2021-03-21 Outpatient R ROMAN [facility] [id number] Univers 14:45:00 14:45:00 PETE maldonado o f [facility] 2021-03-20 2021-03-20 [facility] [id number] Univers 00:00:00 00:00:00 Pete Piedra [employer] [id number] ity [facility] [id number] Rodney as MATERNAL [id number] [facility] ical & CHILD [address] [place] [address] 2021-03-19 2021-03-19 Outpatient Alannah BENAVIDEZ [facility] [id number] Univers 14:45:00 14:45:00 JAMIE [id number] [facility] 2021-03-19 2021-03-19 Outpatient Alannah BENAVIDEZ [facility] [id number] Univers 14:45:00 14:45:00 JAMIE maldonado [facility] 2021-03-18 2021-03-18 Outpatient Alannah BENAVIDEZ [facility] [id number] Univers 15:15:00 15:15:00 JAMIE [id number] [facility] 2021-03-18 2021-03-18 [facility] [id number] Univers 15:15:00 15:15:00 JAMIE ity of [facility] 2021-03-16 2021-03-17 Emergency Sam Kemp [facility] [id number] Univers 22:39:00 01:20:00 Salina Aiken [id number] i ty of [place] [id number] [facility] [id number] [place] [address] 2021-02-20 2021-02-20 Telephone Demetrio Lara [facility] [id number] Univers 00:00:00 00:00:00 FAUSTO [id number] it y of [facility] [id number] [facility] 019 Branch 2021-02-19 2021-02-19 Emergency [facility] [id number] Univers 02:37:00 03:44:00 Joanne Aiken [id number] ity of [place] [id number] [facility] [id number] [place] [address] [place] 2020-09-10 2020-09-10 [facility] [id number] 00:00:00 00:00:00 Outreach Juan PRIMARY [id number] [place] CARE [id number] PAVILLION [id number] 2020-09-10 2020-09-10 [facility] [id number] Univers 00:00:00 00:00:00 Outreach Juan PRIMARY [id number] i ty of [place] [id number] [place] [id number] [address] [place] 2020-08-27 2020-08-27 Outpatient R [facility] [id number] Univers 10:30:00 10:30:00 [id number] ity [facility] 2020-08-27 2020-08-27 [facility] [id number] Univers 10:30:00 10:30:00 ROSSTEPHENNDA ity o f [facility] 2020-08-26 2020-08-26 Outpatient R [facility] [id number] Univers 13:30:00 13:30:00 [id number] ity [facility] 2020-08-26 2020-08-26 Outpatient R [facility] [id number] Univers 13:30:00 13:30:00 ity [facility] 2020-07-11 2020-07-11 Outpatient R CASE [facility] [id number] Univers 13:15:00 13:15:00 ROSNDA [id number] ity o [facility] 2020-07-11 2020-07-11 Outpatient R WILLOUGHBY, [facility] [id number] Univers 13:15:00 13:15:00 GRANTNDA ity o [facility] 2020-06-27 2020-06-27 Office [facility] [id number] Univers 15:21:42 16:19:38 Visit Myrandaemile R [employer] [id number] [facility] [id number] Rodney as MATERNAL [id number] Med ical & CHILD [address] [place] [address] 2020-06-27 2020-06-27 Office [facility] [id number] 15:21:42 16:19:38 [facility] R [employer] [id number] [facility] [id number] MATERNAL [id number] & CHILD [address] [facility] 2020-06-27 2020-06-27 Outpatient R WILLOUGHBY, [facility] [id number] Univers 15:30:00 15:30:00 ROSHUNDA [id number] ity o [facility] 2020-06-27 2020-06-27 Outpatient R WILLOUGHBY, [facility] [id number] Univers 15:30:00 15:30:00 ROSSTEPHENNDA ity o [facility] 2020-06-05 2020-06-05 Outpatient WILLOUGHBY, [facility] [id number] Univers 15:15:00 15:15:00 ROSSTEPHENNDA [id number] ity o f [facility] 2020-06-05 2020-06-05 Outpatient R CASE [facility] [id number] Univers 15:15:00 15:15:00 WILBERT ity o f [facility] 2020-03-27 2020-03-28 Emergency Sam Kemp [facility] 1.2.840.114 [id number] Univers 19:22:00 00:39:00 Salina Aiken [id number] i ty of [place] [id number] [facility] [id number] [address] 2019-12-05 2019-12-05 Emergency Shruthi [facility] [id number] Univers 01:22:11 03:48:00 Radha Aiken [id number] ity of [place] [id number] [facility] [id number] [address] 2019-12-05 2019-12-05 Emergency [facility] ERT [id number] Univers 01:22:11 03:48:00 RADHA maldonado [facility] 2019-11-15 2019-11-16 Emergency Sam Kemp [facility] [id number] Univers 19:21:57 00:00:00 Salina Aiken [id number] i ty of [place] [id number] [facility] [id number] [address] 2019-11-15 2019-11-16 Emergency X Sam KEMP [facility] ERT [id number] Univers 19:21:57 00:00:00 ity of [facility] 2019-10-19 2019-10-19 Emergency Anil [facility] [id number] Univers 04:35:17 06:17:00 Luisa Aiken [id number] i ty of [place] [id number] [facility] [id number] [address] 2019-10-19 2019-10-19 Emergency [facility] ERT [id number] Univers 04:35:17 06:17:00 LUISA maldonado [facility] 2019-08-31 2019-08-31 Emergency [facility] [id number] Univers 03:53:07 05:03:00 Jessica Aiken [id number] i ty of [place] [id number] [facility] [id number] [address] 2019-08-31 2019-08-31 Emergency X PAULINO, [facility] ERT [id number] Univers 03:53:07 05:03:00 JESSICA maldonado [facility] 2019-06-09 2019-06-09 Emergency X BETO III, [facility] ERT [id number] Univers 16:17:18 19:21:00 MANAN maldonado [facility] 2019-01-29 2019-01-29 Emergency Beto [facility] [id number] Univers 15:09:14 18:22:00 Manan Aiken [id number] i ty of [place] [id number] [facility] [id number] [address] 2019-01-29 2019-01-29 Orders Doctor BRONWYN [id number] Univers 00:00:00 00:00:00 Only Unassigned, FAUSTO [id number] ity of [place] [facility] [id number] [facility] [id number] [address] Results Test Description Test Time Test Comments Results Result Comments Source HIV 1/2 AG-AB WITH REFLEX 2020-06-28 07:10:00 Test Item Value Reference Range Interpretation Comme nts HIV Semi-quantitative (test code = Negative Negative 55504-3) MARCELINO (test code = MARCELINO) Non-reactive for HIV-1 antigen and HIV-1/HIV-2 antibodies. ?No laboratory evidence of HIV infection. ?Repeat in 2-4 weeks if acute HIV infection is suspected. [facility] AG-AB WITH [id number] 07:10:00 Test Item Value Reference Range Interpretation Comments HIV Negative Negative Semi-quantitative (test code = 42863-8) MARCELINO (test code = Non-reactive for HIV-1 MARCELINO) antigen and HIV-1/HIV-2 antibodies. ?No laboratory evidence of HIV infection. ?Repeat in 2-4 weeks if acute HIV infection is suspected. [facility] [id number] 22:15:00 Test Item Value Reference Range Interpretation Comments POCT PREG (test code = 1605) Negative On board controls acceptable with C Yes Line (test code = 3574) POCT PREG LOT # (test code = 3575) POCT PREG TEST DATE (test code = 3576) [facility] [id number] 22:15:00 Test Item Value Reference Range Interpretation Comments POCT PREG (test code = 1605) Negative On board controls acceptable with C Yes Line (test code = 3574) POCT PREG LOT # (test code = 3575) POCT PREG TEST DATE (test code = 3576) [facility] ABDOMEN PELVIS WO [id number] 05:11:45 No acute intra-abdominal or pelvic findings. [...] reviewed this study and agree with theabove report.[facility] WITH DIFF 2020-03-28 02:09:00 Test Item [...] RDW-SD (test code = 45.4 fL 39-49.9 82048-9) RDW-CV (test code = 14.1 % 12-15.5 788-0) PLT (test code = See_Comment [Automated 777-3) message] The sy stem which generated this result transmitted reference range : 166 - 358 10*3/ ?L. The reference r renee was not used to interpret this result as normal/abnormal . MPV (test code = 10.1 fL 9.5-12.9 56269-2) NRBC/100 WBC (test See_Comment [Automat ed code = 1050787088) message] The system which generated this result transmitted reference range : 0.0 - 10.0 /100 WBCs. The refer ence range was not u sed to interpret th is result as normal/abnormal . NRBC x10^3 (test code <0.01 See_Comment [Auto mated = 8313861582) message] The s ystem which generated this result transmitted reference range : 10*3/?L. The reference range was not used to interpret this result as normal/abnormal . GRAN MAT (NEUT) % 56.3 % (test code = 770-8) IMM GRAN % (test code 0.90 % = 4934854899) LYMPH % (test code = 31.9 % 736-9) MONO % (test code = 9.5 % 5905-5) EOS % (test code = 0.5 % 713-8) BASO % (test code = 0.9 % 706-2) GRAN MAT x10^3(ANC) 2.44 10*3/uL 1.88-7.09 (test code = 0500131231) IMM GRAN x10^3 (test 0.04 10*3/uL 0-0.06 code = 9938826088) LYMPH x10^3 (test code 1.38 10*3/uL 1.32-3.29 = 731-0) MONO x10^3 (test code 0.41 10*3/uL 0.33-0.92 = 742-7) EOS x10^3 (test code = <0.03 0.03-0.39 L 711-2) BASO x10^3 (test code 0.04 10*3/uL 0.01-0.07 = 704-7) BANDS (test code = Increased A 1649594834) REACT LYMPHS (test Rare code = 8286147787) Lab Interpretation Abnormal (test code = 94973-2) [facility]2020-[facility]08 02:04:00 Test Item Value Reference Range Interpretation Comments APPEARANCE (test code = Clear Clear 0619848717) COLOR (test code = Yellow Yellow 5456622642) PH (test code = 4.8-8.0 4701670642) SP GRAVITY (test code = 1.003-1.030 3208869731) GLU U QUAL (test code = Normal Normal 3153354410) BLOOD (test code = Negative Negative 7225456044) KETONES (test code = Negative Negative 8905702884) PROTEIN (test code = Negative Negative 2887-8) UROBILIN (test code = Normal Normal 5331591589) BILIRUBIN (test code = Negative Negative 1776450944) NITRITE (test code = Negative Negative 3028303933) LEUK GABBY (test code = Negative Negative 6068583251) RBC/HPF (test code = See_Comment [Autom ated message] 5596793898) The system [employer] generated this result transmitted ref erence range: 0 - 3 HP F. The reference range was not used to int erpret this result as normal/abnormal . WBC/HPF (test code = See_Comment [Autom ated message] 8591240327) The system [employer] generated this result transmitted ref erence range: 0 - 5 HP F. The reference range was not used to int erpret this result as normal/abnormal . BACTERIA (test code = Few Negative A 2046561941) MUCOUS (test code = Slight Negative LPF A 1942631494) SQ EPITH (test code = HPF 9622944434) Lab Interpretation (test Abnormal code = 07162-8) [facility] (ID NOW RAPID TESTING)2020-03-28 01:54:00 Test Item Value Reference Range Interpretation Comments SARS-CoV-2 Rapid ID NOW Not Detected Not Detected (test code = 37928-5) MARCELINO (test code = MARCELINO) ID NOW COVID-19 Assay is an isothermal nucleic acid amplification test intended for the qualitative detection of nucleic acid from SARS-CoV-2 viral RNA in nasopharyngeal (CHEMICAL OPERATIONS SPECIALIST) specimens. It is used under Emergency Use [...] indicated. Lab Interpretation Normal (test code = 06292-5) [facility]. METABOLIC PANEL (93327)2020-03-28 01:44:00 Test Item Value Reference Range Interpretation Comments NA (test code = 136 mmol/L 135-145 4881066551) K (test code = 3.9 mmol/L 3.5-5 2898264627) CL (test code = 97 mmol/L 98-108 L 5948421954) CO2 TOTAL (test code = 30 mmol/L 23-31 2147338372) AGAP (test code = 2-16 3822246971) BUN (test code = 7 mg/dL 7-23 9764874781) GLUCOSE (test code = 92 mg/dL 70-110 7631757661) CREATININE (test code = 0.63 mg/dL 0.5-1.04 3459081683) TOTAL BILI (test code = 0.5 mg/dL 0.1-1.4 0209078062) CALCIUM (test code = 9.6 mg/dL 8.6-10.6 8386011021) T PROTEIN (test code = 8.3 g/dL 6.3-8.2 H 5592196337) ALBUMIN (test code = 4.4 g/dL 3.5-5 1959657406) ALK PHOS (test code = 113 U/L 34-122 7045968837) ALTv (test code = 75 U/L 5-35 H 1742-6) AST(SGOT) (test code = 52 U/L 13-40 H 3116027624) eGFR Calculation mL/min/1.73m2 (Non-) (test code = 1592083054) eGFR Calculation mL/min/1.73m2 () (test code = 8177373519) MARCELINO (test code = MARCELINO) Association of [...] tests). Lab Interpretation Abnormal (test code = 39119-2) [facility]2020-10-08 01:44:00 Test Item Value Reference Range Interpretation Comments LIPASE (test code = 7555077167) 88 U/L 0-220 Lab Interpretation (test code = Normal 23490-1) [facility]woodMAGNESIUM2020-10-08 01:44:00 Test Item Value Reference Range Interpretation Comments MAGNESIUM (test code = 3067661436) 2.1 mg/dL 1.7-2.4 Lab Interpretation (test code = Normal 55183-3) [facility]woodPO[facility] [id number] 01:17:00 Test Item Value Reference Range Interpretation Comments POCT PREG (test code = 1605) Negative On board controls acceptable with Present C Line (test code = 3574) POCT PREG LOT # (test code = 3575) [id number] POCT PREG TEST DATE (test 02/18/2021 code = 3576) Lab Interpretation (test code = Normal 38384-5) [facility]woodC[facility] (ID NOW RAPID TESTING)2019-12-05 07:32:00 Test Item Value Reference Range Interpretation Comments SARS-CoV-2 Rapid ID NOW Not Detected Not Detected (test code = 49043-8) MARCELINO (test code = MARCELINO) ID NOW COVID-19 Assay is an isothermal nucleic acid amplification test intended for the qualitative detection of nucleic acid from SARS-CoV-2 viral RNA in nasopharyngeal (CHEMICAL OPERATIONS SPECIALIST) specimens. It is used under Emergency Use [...] indicated. Lab Interpretation Normal (test code = 62859-8) [facility] Metabolic Panel (NA, K, CL, CO2, GLUCOSE, BUN, CREATININE, CA)2019-12-05 07:04:00 Test Item Value Reference Range Interpretation Comments NA (test code = 140 mmol/L 135-145 3152411776) K (test code = 3.9 mmol/L 3.5-5 1058184984) CL (test code = 102 mmol/L 98-108 5959759844) CO2 TOTAL (test code = 30 mmol/L 23-31 0918935330) AGAP (test code = 2-16 4754339859) BUN (test code = 10 mg/dL 7-23 7947853232) GLUCOSE (test code = 91 mg/dL 70-110 0894197727) CREATININE (test code 0.67 mg/dL 0.5-1.04 = 2904227260) CALCIUM (test code = 9.7 mg/dL 8.6-10.6 2929647871) eGFR Calculation mL/min/1.73m2 (Non-) (test code = 7077898048) eGFR Calculation mL/min/1.73m2 () (test code = 6105698151) MARCELINO (test code = MARCELINO) Association of [...] or urine or abnormalities in imaging tests). [facility]woodHepatic Function Panel (ALB, T.PRO, BILI T, BU/BC, ALT, AST, ALK PHOS)2019-12-05 07:04:00 Test Item Value Reference Range Interpretation Comments TOTAL BILI (test code = 8849351974) 0.3 mg/dL 0.1-1.1 BILI UNCON (test code = 1663961107) 0.4 mg/dL 0.1-1.1 BILI CONJ (test code = 2022214169) 0.0 mg/dL 0-0.3 T PROTEIN (test code = 3531384523) 8.7 g/dL 6.3-8.2 H ALBUMIN (test code = 0248421487) 4.8 g/dL 3.5-5 ALK PHOS (test code = 2358016363) 110 U/L 34-122 ALTv (test code = 1742-6) 20 U/L 5-35 AST(SGOT) (test code = 4459166764) 24 U/L 13-40 Lab Interpretation (test code = Abnormal 57455-0) [facility] KingwoodLipase [id number] 07:04:00 Test Item Value Reference Range Interpretation Comments LIPASE (test code = 5545774103) 117 U/L 0-220 Lab Interpretation (test code = Normal 44409-6) [facility]woodPregnancy Test, [id number] 07:00:00 Test Item Value Reference Range Interpretation Comments PREG SERUM (test code Negative = 4573800679) MARCELINO (test code = MARCELINO) Less than 10 IU/L. ?If low titer or ectopic is suspected, resubmit specimen in 48-72 hours. [facility] KingwoodUrinalysis2020-06-16 06:55:00 Test Item Value Reference Range Interpretation Comments APPEARANCE (test code = Clear Clear 9399116889) COLOR (test code = Straw Yellow A 2825820678) PH (test code = 4.8-8.0 7625017568) SP GRAVITY (test code = 1.003-1.030 5277862793) GLU U QUAL (test code = Normal Normal 9928938038) BLOOD (test code = Negative Negative 6028359851) KETONES (test code = Negative Negative 9457759802) PROTEIN (test code = Negative Negative 2887-8) UROBILIN (test code = Normal Normal 6428986217) BILIRUBIN (test code = Negative Negative 4814590695) NITRITE (test code = Negative Negative 2598032018) LEUK GABBY (test code = Negative Negative 4342352583) RBC/HPF (test code = See_Comment [Autom ated message] 7143206974) The system [employer] generated this result transmitted ref erence range: 0 - 3 HP F. The reference range was not used to int erpret this result as normal/abnormal . WBC/HPF (test code = See_Comment [Autom ated message] 7132253065) The system [employer] generated this result transmitted ref erence range: 0 - 5 HP F. The reference range was not used to int erpret this result as normal/abnormal . BACTERIA (test code = Negative Negative 9428591010) MUCOUS (test code = Slight Negative LPF A 5239689310) SQ EPITH (test code = HPF 5403576170) Lab Interpretation (test Abnormal code = 33483-7) [facility]woodCB WITH [id number] 06:47:00 Test Item Value Reference Range Interpretation Comments WBC (test code = See_Comment [Automated 4965-2) message] The sy stem which generated this result transmitted reference range : 4.30 - 11.10 10*3/?L. The reference range was not used to interpret this result as normal/abnormal . RBC (test code = See_Comment [Automated 869-8) message] The sy stem which generated this [...] RDW-SD (test code = 42.7 fL 39-49.9 72384-2) RDW-CV (test code = 13.0 % 12-15.5 788-0) PLT (test code = See_Comment H [Automated 777-3) message] The sy stem which generated this result transmitted reference range : 166 - 358 10*3/ ?L. The reference r renee was not used to interpret this result as normal/abnormal . MPV (test code = 10.0 fL 9.5-12.9 08611-4) NRBC/100 WBC (test See_Comment [Automat ed code = 6586864415) message] The system which generated this result transmitted reference range : 0.0 - 10.0 /100 WBCs. The refer ence range was not u sed to interpret th is result as normal/abnormal . NRBC x10^3 (test code <0.01 See_Comment [Auto mated = 1493390393) message] The s ystem which generated this result transmitted reference range : 10*3/?L. The reference range was not used to interpret this result as normal/abnormal . GRAN MAT (NEUT) % 65.1 % (test code = 770-8) IMM GRAN % (test code 0.30 % = 0823452986) LYMPH % (test code = 22.5 % 736-9) MONO % (test code = 8.2 % 5905-5) EOS % (test code = 3.4 % 713-8) BASO % (test code = 0.5 % 706-2) GRAN MAT x10^3(ANC) 5.71 10*3/uL 1.88-7.09 (test code = 0813323844) IMM GRAN x10^3 (test 0.03 10*3/uL 0-0.06 code = 8437218708) LYMPH x10^3 (test code 1.97 10*3/uL 1.32-3.29 = 731-0) MONO x10^3 (test code 0.72 10*3/uL 0.33-0.92 = 742-7) EOS x10^3 (test code = 0.30 10*3/uL 0.03-0.39 711-2) BASO x10^3 (test code 0.04 10*3/uL 0.01-0.07 = 704-7) Lab Interpretation Abnormal (test code = 73087-5) [facility]woodPOCT [id number] 03:26:00 Test Item Value Reference Range Interpretation Comments POCT PREG (test code = 1605) Negative On board controls acceptable with Present C Line (test code = 3574) POCT PREG LOT # (test code = 3575) [id number] POCT PREG TEST DATE (test 01/18/2021 code = 3576) Lab Interpretation (test code = Normal 57184-4) [facility]woodUS GALL [id number] 02:48:50 Gallbladder hydrops and cholelithiasis without sonographic [...] visualized portions of the pancreas are normal. [facility], Radiant Results Inft User - 11/15/2019 9:50 [...] reviewed this study and agree withthe above report.[facility]woodTRCONW[facility] MED[facility] CENTERFREDDIE I 2019-11-16 01:18:00 Test Item Value Reference Range Interpretation Comments TROPONIN I (test <0.012 See_Comment [Automated code = 5593194569) message] The system which generated this result [...] ? Lab Interpretation Normal (test code = 66391-4) [facility]. METABOLIC PANEL (78239)2019-11-16 01:07:00 Test Item Value Reference Range Interpretation Comments NA (test code = 140 mmol/L 135-145 2885859544) K (test code = 4.2 mmol/L 3.5-5 1062036555) CL (test code = 101 mmol/L 98-108 2203958253) CO2 TOTAL (test code = 29 mmol/L 23-31 4380266599) AGAP (test code = 2-16 5521687994) BUN (test code = 11 mg/dL 7-23 0864643558) GLUCOSE (test code = 101 mg/dL 70-110 6779089094) CREATININE (test code 0.50 mg/dL 0.5-1.04 = 2445596466) TOTAL BILI (test code 0.1 mg/dL 0.1-1.1 = 1773785811) CALCIUM (test code = 9.4 mg/dL 8.6-10.6 3218317658) T PROTEIN (test code = 7.8 g/dL 6.3-8.2 1761048849) ALBUMIN (test code = 4.4 g/dL 3.5-5 5348886199) ALK PHOS (test code = 88 U/L 34-122 2436122326) ALTv (test code = 25 U/L 5-35 1742-6) AST(SGOT) (test code = 25 U/L 13-40 0801714966) eGFR Calculation mL/min/1.73m2 (Non-) (test code = 0101674598) eGFR Calculation mL/min/1.73m2 () (test code = 3402253990) MARCELINO (test code = MARCELINO) Association of [...] or urine or abnormalities in imaging tests). [facility]woodLIPASE, [id number] 01:07:00 Test Item Value Reference Range Interpretation Comments LIPASE (test code = 7529053266) 109 U/L 0-220 Lab Interpretation (test code = Normal 05515-8) [facility] KingwoodPROTHROMBIN TIME / [id number] 01:07:00 Test Item Value Reference Range Interpretation Comments PROTIME PATIENT (test See_Comment L [Auto mated message] code = 5964-2) The system [employer] [facility] generated this result transmitted ref erence range: 12.0 - 1 4.7 Seconds. The reference range was not used to int erpret this result as normal/abnormal . INR (test code = 6301-6) Nor mal INR <1.1; Warfarin Therap eutic range 2.0 to 3. 0 or 2.5 to 3.5, dep ending upon the indica tions. Lab Interpretation (test Abnormal code = 22101-4) [facility] KingwoodaPTT2020-05-28 01:05:00 Test Item Value Reference Range Interpretation Comments APTT Patient (test See_Comment [Automat ed code = 3173-2) message] The system which generated this result transmitted reference range : 23 - 38 Seconds . The reference range was not used to interpr et this result as normal/abnormal . MARCELINO (test code = MARCELINO) The [facility] patient population mean normal value for aPTT is 30 seconds. Lab Interpretation Normal (test code = 55075-1) [facility] WITH [id number] 00:48:00 Test Item Value Reference Range Interpretation [...] RDW-SD (test code = 43.6 fL 39-49.9 91181-5) RDW-CV (test code = 13.1 % 12-15.5 788-0) PLT (test code = See_Comment H [Automated 777-3) message] The sy stem which generated this result transmitted reference range : 166 - 358 10*3/ ?L. The reference r renee was not used to interpret this result as normal/abnormal . MPV (test code = 10.4 fL 9.5-12.9 65636-7) NRBC/100 WBC (test See_Comment [Automat ed code = 2540575126) message] The system which generated this result transmitted reference range : 0.0 - 10.0 /100 WBCs. The refer ence range was not u sed to interpret th is result as normal/abnormal . NRBC x10^3 (test code <0.01 See_Comment [Auto mated = 0687734636) message] The s ystem which generated this result transmitted reference range : 10*3/?L. The reference range was not used to interpret this result as normal/abnormal . GRAN MAT (NEUT) % 62.6 % (test code = 770-8) IMM GRAN % (test code 0.60 % = 0191606428) LYMPH % (test code = 24.0 % 736-9) MONO % (test code = 8.1 % 5905-5) EOS % (test code = 4.1 % 713-8) BASO % (test code = 0.6 % 706-2) GRAN MAT x10^3(ANC) 4.86 10*3/uL 1.88-7.09 (test code = 7025062722) IMM GRAN x10^3 (test 0.05 10*3/uL 0-0.06 code = 1502957553) LYMPH x10^3 (test code 1.87 10*3/uL 1.32-3.29 = 731-0) MONO x10^3 (test code 0.63 10*3/uL 0.33-0.92 = 742-7) EOS x10^3 (test code = 0.32 10*3/uL 0.03-0.39 711-2) BASO x10^3 (test code 0.05 10*3/uL 0.01-0.07 = 704-7) Lab Interpretation Abnormal (test code = 32560-5) [facility] [id number] 11:05:00 Test Item Value Reference Range Interpretation Comments TROPONIN I (test <0.012 See_Comment [Automated code = 0643781685) message] The system which generated this result [...] ? Lab Interpretation Normal (test code = 14882-3) [facility]woodCORONAVIRUS COVID-19 [id number] 11:04:00 Test Item Value Reference Range Interpretation Comments SARS-CoV-2 (test code = Not Detected Not Detected 08817-1) MARCELINO (test code = MARCELINO) ID NOW COVID-19 Assay is an isothermal nucleic acid amplification test intended for the qualitative detection of nucleic acid from SARS-CoV-2 viral RNA in nasopharyngeal (CHEMICAL OPERATIONS SPECIALIST) specimens. It is used under Emergency Use [...] indicated. Lab Interpretation Normal (test code = 05637-4) [facility]woodCB WITH [id number] 10:59:00 Test Item Value Reference Range Interpretation [...] RDW-SD (test code = 44.3 fL 39-49.9 16989-9) RDW-CV (test code = 13.2 % 12-15.5 788-0) PLT (test code = See_Comment [Automated 777-3) message] The sy stem which generated this result transmitted reference range : 166 - 358 10*3/ ?L. The reference r renee was not used to interpret this result as normal/abnormal . MPV (test code = 10.6 fL 9.5-12.9 96093-3) NRBC/100 WBC (test See_Comment [Automat ed code = 0616788436) message] The system which generated this result transmitted reference range : 0.0 - 10.0 /100 WBCs. The refer ence range was not u sed to interpret th is result as normal/abnormal . NRBC x10^3 (test code <0.01 See_Comment [Auto mated = 5512319348) message] The s ystem which generated this result transmitted reference range : 10*3/?L. The reference range was not used to interpret this result as normal/abnormal . GRAN MAT (NEUT) % 68.9 % (test code = 770-8) IMM GRAN % (test code 0.30 % = 3640849821) LYMPH % (test code = 21.3 % 736-9) MONO % (test code = 6.4 % 5905-5) EOS % (test code = 2.5 % 713-8) BASO % (test code = 0.6 % 706-2) GRAN MAT x10^3(ANC) 6.96 10*3/uL 1.88-7.09 (test code = 9118982972) IMM GRAN x10^3 (test 0.03 10*3/uL 0-0.06 code = 4840755327) LYMPH x10^3 (test code 2.15 10*3/uL 1.32-3.29 = 731-0) MONO x10^3 (test code 0.65 10*3/uL 0.33-0.92 = 742-7) EOS x10^3 (test code = 0.25 10*3/uL 0.03-0.39 711-2) BASO x10^3 (test code 0.06 10*3/uL 0.01-0.07 = 704-7) Lab Interpretation Abnormal (test code = 08586-0) [facility]woodURINALYSIS2020-04-30 10:58:00 Test Item Value Reference Range Interpretation Comments APPEARANCE (test code = Hazy Clear A 3486009514) COLOR (test code = Yellow Yellow 1026516462) PH (test code = 4.8-8.0 4351933777) SP GRAVITY (test code = 1.003-1.030 1168390528) GLU U QUAL (test code = Normal Normal 0984498303) BLOOD (test code = Negative Negative 1158364888) KETONES (test code = Negative Negative 9667234812) PROTEIN (test code = Negative Negative 2887-8) UROBILIN (test code = Normal Normal 6148954450) BILIRUBIN (test code = Negative Negative 1480188069) NITRITE (test code = Negative Negative 0752221306) LEUK GABBY (test code = Negative Negative 6624580475) RBC/HPF (test code = See_Comment H [Autom ated message] 3070407939) The system [employer] generated this result transmitted ref erence range: 0 - 3 HP F. The reference range was not used to int erpret this result as normal/abnormal . WBC/HPF (test code = See_Comment [Autom ated message] 0965041625) The system [employer] generated this result transmitted ref erence range: 0 - 5 HP F. The reference range was not used to int erpret this result as normal/abnormal . BACTERIA (test code = Negative Negative 2237139524) MUCOUS (test code = Moderate Negative LPF A 3184498073) SQ EPITH (test code = HPF 8033577218) YEAST BUD (test code = <1 See_Comment [Aut omated message] 0736320020) The system [employer] generated this result transmitted ref erence range: <=1 HPF. The reference range was not used to int erpret this result as normal/abnormal . Lab Interpretation (test Abnormal code = 92293-5) [facility]. METABOLIC PANEL (25288)2019-10-19 10:54:00 Test Item Value Reference Range Interpretation Comments NA (test code = 139 mmol/L 135-145 7721763516) K (test code = 3.8 mmol/L 3.5-5 2167752324) CL (test code = 103 mmol/L 98-108 8512495970) CO2 TOTAL (test code = 30 mmol/L 23-31 6625075540) AGAP (test code = 2-16 2243261804) BUN (test code = 14 mg/dL 7-23 1399365232) GLUCOSE (test code = 101 mg/dL 70-110 0103978909) CREATININE (test code 0.59 mg/dL 0.5-1.04 = 8441116360) TOTAL BILI (test code 0.2 mg/dL 0.1-1.1 = 6983163408) CALCIUM (test code = 9.7 mg/dL 8.6-10.6 9334542187) T PROTEIN (test code = 7.7 g/dL 6.3-8.2 8867344273) ALBUMIN (test code = 4.4 g/dL 3.5-5 3416180046) ALK PHOS (test code = 97 U/L 34-122 7012541308) ALTv (test code = 18 U/L 5-35 1742-6) AST(SGOT) (test code = 23 U/L 13-40 9797182465) eGFR Calculation mL/min/1.73m2 (Non-) (test code = 7476332546) eGFR Calculation mL/min/1.73m2 () (test code = 6768232348) MARCELINO (test code = MARCELINO) Association of [...] or urine or abnormalities in imaging tests). [facility]woodL[facility]2020-[facility]-30 10:53:00 Test Item Value Reference Range Interpretation Comments LIPASE (test code = 4091184263) 115 U/L 0-220 Lab Interpretation (test code = Normal 14256-6) [facility]woodPOCT [id number] 10:18:00 Test Item Value Reference Range Interpretation Comments POCT PREG (test code = 1605) Negative On board controls acceptable Present with C Line (test code = 3574) POCT PREG LOT # (test code = HCGF [id number]) POCT PREG TEST DATE (test 01/18/2021 code = 3576) Lab Interpretation (test code = Normal 52513-2) [facility] KingwoodXR CHEST 1 [id number] 09:37:51Impression: No radiographic evidence for acute cardiopulmonary disease. RL: 460 AFC: [id number] Indication: Cough Comparison: None available Findings: Single [...] radiographic evidence for acute cardiopulmonary disease.RL: 460AFC: [id number] signed by Ashley De Leon MD, PhD at 08/31/2019 4:37 AMUnValley [facility] - INFLUENZA A & B DIRECT [id number] 09:37:00 Test Item Value Reference Range Interpretation Comments Influenza A (test code = 88866-8) Negative Negative Influenza B (test code = 96456-7) Negative Negative Lab Interpretation (test code = Normal 09260-6) [facility] STREP SCREEN FOR GROUP [id number] 09:29:00 Test Item Value Reference Range Interpretation Comments Streptococcus pyogenes (group A) Negative Negative antigen (test code = 79101-7) Lab Interpretation (test code = Normal 65766-4) [facility]woodORTHOPEDIC INJURY TREATMENT - UPPER EXTREMITY 2019-01-29 19:59:18MorManan [...] method:?NoneProcedure details: ?Manipulation performed: no?Immobilization:?Splint?Splint type:?Sugar tong?Supplies used:?Moqam-[id number]-[id number] assessment: ?Neurological function: normal?Distal perfusion: normal?Range of motion: unchanged?Patient tolerance of procedure:?Tolerated well, no immediate complicationsUn[facility]"
[2021-10-10] MEDS ORDERED: FAMOTIDINE 20 MG/2 ML VIAL IV ONE (05:43)
[2021-10-10] MEDS ORDERED: ONDANSETRON 4 MG/2 ML VIAL ONE (05:43)
[2021-10-10 05:46] LABS: Urine Blood 3+ (Negative); Urine Glucose Negative (Negative); Urine Protein 1+ (Negative); Urine Specific Gravity 1.025 (1.005-1.030); Urine pH 6.5 (5.0-7.0)
[2021-10-10 05:51] LABS: Absolute Lymphocytes (CBC) 1.5 K/uL (0.7-4.9); Hematocrit 37.6 % (36.0-45.0); Lymphocytes % 21.6 % (15.3-44.8); MPV 8.5 fL (7.6-11.3); RBC Red Blood Cell Count 4.51 M/uL (3.86-4.86)
[2021-10-10 06:03] LABS: Barbiturates NEGATIVE (NEGATIVE); Benzodiazepines NEGATIVE (NEGATIVE); Cocaine NEGATIVE (NEGATIVE); METHAMPHETAM NEGATIVE (NEGATIVE); Methadone NEGATIVE (NEGATIVE); Opiates NEGATIVE (NEGATIVE); Phencyclidine NEGATIVE (NEGATIVE); THC Cannibis NEGATIVE (NEGATIVE)
[2021-10-10 06:17] LABS: ALT/SGPT 26 U/L (12-78); AST/SGOT 10 U/L (15-37); Albumin 3.9 g/dL (3.4-5.0); Alkaline Phosphatase 98 U/L (45-117); BUN Blood Urea Nitrogen 8 mg/dL (7-18); Bicarbonate 25 mmol/L (21-32); Bilirubin Total 0.2 mg/dL (0.2-1.0); Glucose Level 94 mg/dL (74-106); Lipase 120 U/L (73-393); Potassium 3.5 mmol/L (3.5-5.1); Protein, Total 8.2 g/dL (6.4-8.2); Sodium Level 142 mmol/L (136-145)
[2021-10-10] MEDS ORDERED: MORPHINE 2 MG/ML SYR ONE (06:18)
[2021-10-10 06:20] LABS: Bilirubin Direct < 0.1 mg/dL (0-0.2)
[2021-10-10] MEDS ORDERED: MEPERIDINE HCL 25 MG/ML SYR ONE (06:31)
--- NOTE | 2021-10-10 06:51 | EDPHYS ---
Physician Documentation [facility] Name: Elba Wells Age: 26 yrs Sex: Female : 1995 Arrival Date: 10/10/2021 Time: 04:50 Bed 5 Private MD: ED Physician Liborio Murillo HPI: 10/10 05:02 This 26 yrs old Female presents to ER via EMS with complaints of AMS. rn 05:02 The patient presents with confusion. Onset: The symptoms/episode began/occurred at an rn unknown time. Possible causes: alcohol, unknown. Associated signs and symptoms: Pertinent positives: abdominal pain, chest pain, confusion, nausea, Pertinent negatives: blurred vision, headache, not seizure, weakness. It is unknown whether or not the patient has had similar symptoms in the past. The patient has not recently seen a physician. Per EMS, found at home in her vehicle, states that was at bar, "just had 2-3 drinks", called and told him she didn't feel right. Stable vitals for EMS. Pt denies drug use. Reports upper abd pain and nausea. Also reports right sided chest pain. states hx of gallstones, headaches, nausea, and anxiety. . Historical: - Allergies: 04:56 Iodinated Contrast Media - IV Dye; ke1 - PMHx: 04:56 Anemia; Asthma; D\\T\\C; ke1 - PSHx: 04:56 Adenoid excision; section; Tonsillectomy; ke1 - Immunization history:: Flu vaccine is not up to date. It has been more than one year since last vaccine. - Social history:: Smoking status: Patient denies any tobacco usage or history of. - Family history:: not pertinent. - Hospitalizations: : No recent hospitalization is reported. - History obtained from: , EMS. ROS: 05:02 Constitutional: Negative for fever, chills, and weight loss, Eyes: Negative for injury, rn pain, redness, and discharge, Neck: Negative for injury, pain, and swelling, Cardiovascular: Negative for palpitations, and edema, Respiratory: Negative for shortness of breath, cough, wheezing Abdomen/GI: + upper abd pain and nausea Back: Negative for injury and pain, : Negative for injury, bleeding, discharge, and swelling, MS/Extremity: Negative for injury and deformity, Skin: Negative for injury, rash, and discoloration, Neuro: Negative for headache, weakness, numbness, tingling, and seizure. Exam: 05:02 Constitutional: This is a well developed, well nourished patient who is awake, alert, rn restless and appears intoxicated with slurred speech Head/Face: Normocephalic, atraumatic. Eyes: Pupils equal round and reactive to light, extra-ocular motions intact. ENT: dry MM, no stridor Cardiovascular: Regular rate and rhythm. No pulse deficits. Respiratory: No increased work of breathing, no retractions or nasal flaring. Abdomen/GI: soft, + mild RUQ tenderness, no peritoneal signs Back: No spinal tenderness. No costovertebral tenderness. Full range of motion. Skin: Warm, dry, no rash MS/ Extremity: Pulses equal, no cyanosis. Neurovascular intact. Full, normal range of motion. Equal circumference. Neuro: Awake and alert, GCS 15, oriented to person, place, and situation. Cranial nerves II-XII grossly intact. Motor strength 5/5 in all extremities. Sensory grossly intact. 05:23 ECG was reviewed by the Attending Physician. rn Vital Signs: 04:51 BP 120 / 79; Pulse 65; Resp 18; Temp 97.7(O); Pulse Ox 100% ; Weight 99.79 kg; Height 5 ke1 ft. 7 in. (170.18 cm); 07:15 BP 106 / 73; Pulse 58; Resp 15; Pulse Ox 100% ; jl7 04:51 Body Mass Index 34.46 (99.79 kg, 170.18 cm) ke1 MDM: 04:51 Patient medically screened. rn 06:17 Differential Diagnosis: electrolyte abnormality, alcohol intoxication, hypoglycemia, rn volume depletion, cholelithiasis. Data reviewed: vital signs, nurses notes, lab test result(s), radiologic studies, ultrasound. ED course: Pt declines morphine. 06:48 Counseling: I had a detailed discussion with the patient and/or guardian regarding: the rn historical points, exam findings, and any diagnostic results supporting the discharge/admit diagnosis, lab results, radiology results, the need for outpatient follow up, to return to the emergency department if symptoms worsen or persist or if there are any questions or concerns that arise at home. Response to treatment: the patient's symptoms have mildly improved after treatment, and as a result, I will discharge patient. Special discussion: Based on the patient's Hx, exam, and Dx evaluation, there is no indication for emergent surgery or inpatient Tx. It is understood by the patient/guardian that if the Sx's persist or worsen they need to return immediately for re-evaluation. I discussed with the patient/guardian in detail that at this point there is no indication for admission to the hospital. It is understood, however, that if the symptoms persist or worsen the patient needs to return immediately for re-evaluation. ED course: Pt improved, stable vitals, + ETOH and gallstones, no cholecystitis, normal cbc and lfts. Normal cxr. Will dc home in [facility] care and recommend general surgery f/u for cholelithiasis. . 10/10 04:51 Order name: CBC with Diff; Complete Time: 06:07 10/10 04:51 Order name: CMP; Complete Time: 06:21 10/10 04:51 Order name: Lipase; Complete Time: 06:10/10 04:51 Order name: Acetaminophen; Complete Time: 06:21 10/10 04:51 Order name: Basic Metabolic Panel rn 10/10 04:51 Order name: ETOH Level; Complete Time: 06:21 10/10 04:51 Order name: Abdomen Limited US 10/10 04:51 Order name: Hepatic Function; Complete Time: 06:21 10/10 04:51 Order name: PT-INR; Complete Time: 06:07 10/10 04:51 Order name: Ptt, Activated; Complete Time: 06:07 10/10 04:51 Order name: Salicylate; Complete Time: 06:21 10/10 04:51 Order name: Urine Drug Screen; Complete Time: 06:07 10/10 04:52 Order name: XRAY Chest (1 view) 10/10 05:46 Order name: Urine Dipstick-Ancillary; Complete Time: 05:48 EDMS 10/10 04:51 Order name: IV Saline Lock; Complete Time: 05:29 10/10 04:51 Order name: Labs collected and sent; Complete Time: 05:40 rn 10/10 04:51 Order name: Urine Dipstick-Ancillary (obtain specimen); Complete Time: 05:40 10/10 04:51 Order name: Urine Test (obtain specimen); Complete Time: 05:47 rn 10/10 04:51 Order name: EKG; Complete Time: 04:52 rn 10/10 04:51 Order name: EKG - Nurse/Tech; Complete Time: 05:40 rn 10/10 04:52 Order name: Cardiac monitoring; Complete Time: 05:29 rn 10/10 04:52 Order name: O2 Sat Monitoring; Complete Time: 05:29 rn EC:23 Rate is 63 beats/min. Rhythm is regular. QRS [place] is Normal. [place] interval is normal. QRS rn interval is normal. QT interval is normal. No Q waves. T waves are Normal. No ST changes noted. Clinical impression: Normal ECG. Interpreted by me. Reviewed by me. Administered Medications: 05:46 Drug: Zofran (Ondansetron) 4 mg Route: IVP; Site: right antecubital; ke1 07:00 Follow up: Response: No adverse reaction jl7 05:46 Drug: NS 0.9% 1000 ml Route: IV; Rate: 1000 ml; Site: right antecubital; ke1 07:15 Follow up: Response: No adverse reaction; IV Status: Completed infusion; IV Intake: jl7 500ml 05:47 Drug: Pepcid (famotidine) 20 mg Route: IVP; Site: right antecubital; ke1 07:00 Follow up: Response: No adverse reaction jl7 06:22 Not Given (Patient Refused): morphine 2 mg IVP once; (PAIN>8) RASS on ADMN: Combtv4, tw5 Very Agttd3, Agttd2, Rstlss1, AlertClm0, Drwsy-1, LtSdtn-2, ModSdtn-3, DpSdtn-4, UnArsble-5 x2 06:29 Drug: Demerol (meperidine) 12.5 mg Route: IVP; Site: right antecubital; kd3 07:00 Follow up: Response: No adverse reaction jl7 Disposition Summary: 10/10/21 06:51 Discharge Ordered Location: Home rn Problem: chronic rn Symptoms: have improved rn Condition: Stable rn Diagnosis - Other cholelithiasis without obstruction rn - Alcohol use, unspecified with intoxication, uncomplicated rn Followup: rn - With: Daniel Brown MD - When: As needed - Reason: Recheck today's complaints, Re-evaluation by your physician Discharge Instructions: - Discharge Summary Sheet rn - Alcohol Intoxication rn - Cholelithiasis rn Forms: - Medication Reconciliation Form rn - Thank You Letter rn - Antibiotic data governance consultant - Prescription Opioid Use rn Signatures: Dispatcher [employer] EDLiborio Griffin MD MD rn Doucette, Kyli, RN RN kd3 Garrett Cook RN RN ke1 Harshil Banegas RN jl7 Areli Lopez tw5
--- NOTE | 2021-10-10 06:51 | ER ---
Nurse's Notes [facility] Name: Elba Wells Age: 26 yrs Sex: Female : 1995 Arrival Date: 10/10/2021 Time: 04:50 Bed 5 Private MD: Diagnosis: Other cholelithiasis without obstruction;Alcohol use, unspecified with intoxication, uncomplicated Presentation: 10/10 04:51 Chief complaint: EMS states: Found in passenger seat of own car c by mom in front of [facility] the garage around 0345, acting confused. Ebola Screen: No symptoms or risks identified at this time. Initial Sepsis Screen: Does the patient meet any 2 criteria? Does the patient have a suspected source of infection?. Risk Assessment: Do you want to hurt yourself or someone else? Patient reports no desire to harm self or others. Onset of symptoms was October 10, 2021 at 03:45. 04:51 Method Of Arrival: EMS: [facility] 04:51 Acuity: CED 3 [facility] 04:58 Coronavirus screen: Vaccine status: Patient reports being unvaccinated. [facility] Triage Assessment: 04:59 General: Appears uncomfortable, Behavior is drowsy. Pain: Complains of pain in ke1 epigastric pain Pain does not radiate. Pain currently is 8 out of 10 on a pain scale. Neuro: Level of Consciousness is obtunded. Respiratory: Airway is patent Respiratory effort is even, unlabored. 04:59 Neuro: Oriented to person, place, time, situation. Cardiovascular: Heart tones S1 S2 ke1 Capillary refill < 3 seconds Patient's skin is warm and dry. GI: No deficits noted. : No deficits noted. Derm: No deficits noted. Musculoskeletal: No deficits noted. Historical: - Allergies: 04:56 Iodinated Contrast Media - IV Dye; ke1 - PMHx: 04:56 Anemia; Asthma; D\T\C; ke1 - PSHx: 04:56 Adenoid excision; section; Tonsillectomy; ke1 - Immunization history:: Flu vaccine is not up to date. It has been more than one year since last vaccine. - Social history:: Smoking status: Patient denies any tobacco usage or history of. - Family history:: not pertinent. - Hospitalizations: : No recent hospitalization is reported. - History obtained from: , EMS. Screenin:56 Abuse screen: Denies threats or abuse. Nutritional screening: No deficits noted. ke1 Tuberculosis screening: No symptoms or risk factors identified. Fall Risk No fall in past 12 months (0 pts). No secondary diagnosis (0 pts). IV access (20 points). Ambulatory Aid- None/Bed Rest/Nurse Assist (0 pts). Gait- Normal/Bed Rest/Wheelchair (0 pts) Mental Status- Oriented to own ability (0 pts). Total Mcfadden Fall Scale indicates No Risk (0-24 pts). Assessment: 07:15 Reassessment: Patient appears in no apparent distress at this time. jl7 Vital Signs: 04:51 BP 120 / 79; Pulse 65; Resp 18; Temp 97.7(O); Pulse Ox 100% ; Weight 99.79 kg; Height 5 1 ft. 7 in. (170.18 cm); 07:15 BP 106 / 73; Pulse 58; Resp 15; Pulse Ox 100% ; jl7 04:51 Body Mass Index 34.46 (99.79 kg, 170.18 cm) 1 ED Course: 04:50 Patient arrived in ED. ke1 04:51 Liborio Murillo MD is Attending Physician. rn 04:51 Garrett Cook, BALDOMERO is Primary Nurse. ke1 04:56 Triage completed. ke1 05:21 XRAY Chest (1 view) In Process Unspecified. EDMS 05:28 Inserted saline lock: 20 gauge in right antecubital area, using aseptic technique. by ke1 Areli charge nurse. 05:39 Initial lab(s) drawn, by ma, sent to lab. Urine collected: clean catch specimen, tw5 cloudy, Amount Voided: 100mL. 05:39 Patient has correct armband on for positive identification. Placed in gown. Bed in low tw5 position. Call light in reach. Side rails up X 1. Adult w/ patient. athletic monitor on. Pulse ox on. NIBP on. Door closed. Noise minimized. Lights dimmed. Moved to private room. Warm blanket given. Verbal reassurance given. Assisted with bedpan. Repositioned patient. 05:40 Basic Metabolic Panel Sent. tw5 05:40 Acetaminophen Sent. tw5 05:40 ETOH Level Sent. tw5 05:40 Hepatic Function Sent. tw5 05:40 PT-INR Sent. tw5 05:40 Ptt, Activated Sent. tw5 05:40 Salicylate Sent. tw5 05:40 Urine Drug Screen Sent. tw5 05:55 Abdomen Limited US In Process Unspecified. EDMS 06:50 Daniel Brown MD is Referral Physician. rn 07:15 No provider procedures requiring assistance completed. IV discontinued, intact, jl7 bleeding controlled, No redness/swelling at site. Pressure dressing applied. 07:53 Primary Nurse role handed off by Garrett Cook, BALDOMERO eb 08:12 Harshil Banegas, BALDOMERO is Primary Nurse. jl7 08:14 Arm band placed on right wrist. jl7 Administered Medications: 05:46 Drug: Zofran (Ondansetron) 4 mg Route: IVP; Site: right antecubital; ke1 07:00 Follow up: Response: No adverse reaction jl7 05:46 Drug: NS 0.9% 1000 ml Route: IV; Rate: 1000 ml; Site: right antecubital; ke1 07:15 Follow up: Response: No adverse reaction; IV Status: Completed infusion; IV Intake: jl7 500ml 05:47 Drug: Pepcid (famotidine) 20 mg Route: IVP; Site: right antecubital; ke1 07:00 Follow up: Response: No adverse reaction jl7 06:22 Not Given (Patient Refused): morphine 2 mg IVP once; (PAIN>8) RASS on ADMN: Combtv4, tw5 Very Agttd3, Agttd2, Rstlss1, AlertClm0, Drwsy-1, LtSdtn-2, ModSdtn-3, DpSdtn-4, UnArsble-5 x2 06:29 Drug: Demerol (meperidine) 12.5 mg Route: IVP; Site: right antecubital; kd3 07:00 Follow up: Response: No adverse reaction jl7 Intake: 07:15 IV: 500ml; Total: 500ml. jl7 Outcome: 06:51 Discharge ordered by . rn 07:15 Discharged to home ambulatory. jl7 07:15 Condition: stable 07:15 Discharge instructions given to patient, Instructed on discharge instructions, follow up and referral plans. Demonstrated understanding of instructions, follow-up care. 07:15 Patient left the ED. jl7 Signatures: Dispatcher [employer] EDMS Liborio Murillo MD MD rn Leal, Jahala, RN RN jl7 Yelena Zhang Tiffany tw5 Macarena Zavala RN RN kd3 Garrett Cook RN RN ke1 Corrections: (The following items were deleted from the chart) 08:15 08:14 Patient left the ED. jl7 jl7
--- NOTE | 2021-10-10 07:39 | RAD REPORT ---
EXAM DESCRIPTION: US - Abdomen Exam Limited - 10/10/2021 5:54 am CLINICAL HISTORY: ABD PAIN COMPARISON: Abdomen Exam Limited dated 07/11/2021 FINDINGS: Gallbladder size is normal. No wall thickening or pericholecystic fluid seen. A single 2.5 -3 cm mobile gallstone is seen. No other stone or sludge confirmed. These findings are similar to the June examination. No common duct stone or biliary tree dilatation identified. Preliminary findings provided at the time of the study. IMPRESSION: Single large stone cholelithiasis without findings of cholecystitis. No biliary tree abnormality.
[2021-10-10 08:21] VITALS: TEMP 97.7; O2SAT 100
[2021-10-10 08:22] VITALS: BP 106/73
--- NOTE | 2021-10-10 13:17 | RAD REPORT ---
EXAM DESCRIPTION: RAD - Chest Single View - 10/10/2021 5:19 am CLINICAL HISTORY: The patient is 26 years old and is Female; CHEST PAIN TECHNIQUE: Frontal view of the chest. COMPARISON: No relevant prior studies available. FINDINGS: LUNGS: There are low lung volumes. Subtle opacity within the left lower lobe is present. The lungs are otherwise clear. PLEURAL SPACE: Unremarkable. No pneumothorax. HEART: Unremarkable. No cardiomegaly. MEDIASTINUM: Unremarkable. BONES/JOINTS: Unremarkable. UPPER ABDOMEN: Unremarkable as visualized. IMPRESSION: Subtle opacity within left lower lobe. While findings may be secondary to minimal atelec tasis, increased density from the overlying soft tissues is within the differential. Electronically signed by: Merly Shelby MD 10/10/2021 5:33 AM CDT Due to temporary technical issues with the PACS/Fluency reporting system, reports are being signed by the in house radiologists without review as a courtesy to insure prompt reporting. The interpreting radiologist is fully responsible for the content of the report.
== END 2021-10-10 08:14 | disposition home or self-care (01) ==
LOC: ER 04:49
DX: K80.80 Other cholelithiasis without obstruction (principal); F10.929 Alcohol use, unspecified with intoxication, unspecified; Z91.041 Radiographic dye allergy status
CPT/HCPCS: 36415; 71045; 76705; 80053; 80307; 80320; 80329; 81003; 82248; 83690; 85025; 85610; 85730; 93005; 96361; 96374; 96375; 99285; J2175; J2270; J2405; J3490

== ENCOUNTER 2021-10-26 05:58 | Emergency (ER) | payer SELFPAY ==
--- OUTSIDE RECORDS SUMMARY | 2021-10-26 06:04 | XMS REPORT | Continuity of Care Document ---
:1995 Author Organization [facility] t Address [address] [place] [address] Care Team Providers Name Role Phone PCP, PATIENT DOES NOT HAVE A Primary Care Physician Unavaila moira PILLAI C Attending Clinician Unavailable Roman MAN C Attending Clinician Carlos BENAVIDEZ Attending Clinician Unavailable Farhan Duarte Attending Clinician Demetrio ALEXANDRE Attending Clinician Unavailable Puja Melissa MD Attending Clinician Faustino Marshall DO Attending Clinician Alannah WILLOUGHBY Attending Clinician Unavailable Alannah Downey Attending Clinician Franklin Grider MD Attending Clinician FRANKLIN GRIDER Attending Clinician Unavailable FARHAN KEMP Attending Clinician Unavailable Alannah Logan Attending Clinician Alannah LUNA Attending Clinician Unavailable Paulino TONY Attending Clinician PAULINO Attending Clinician Unavailable YAZMIN AN, Afia Attending Clinician Unavailable Afia Saldana Attending Clinician Doctor Unassigned, Name Attending Clinician Unavailable FRANKLIN GRIDER Admitting Clinician Unavailable FARHAN KEMP Admitting Clinician Unavailable Alannah LUNA Admitting Clinician Unavailable PAULINO Admitting Clinician Unavailable Afia ARCE III Admitting Clinician Unavailable Payers Payer Name Policy Type Policy Number Effective Date Expiration Date Puja bobo MEDICAID PENDING PENDING 2019 2019 00:00:00 00:00:00 Advance Directives Directive Decision Effective Termination Comments Source Date Date Healthcare Agents on N/A NPI: [id number] FileNameRelationshipHealthcare [id number] Agent RelationshipCommunicationErlinda NunezOtherFirst alternate healthcare [phone] (Mobile) Problems Condition Condition Condition Status Onset Resolution Last Treating Co mments Source Name Details Category Date Date Treatment Clinician Date Class 2 Class 2 Disease Active NPI:183 obesity obesity 06-27 [id number] with body with body 00:00: mass index mass index 00 (BMI) of (BMI) of 35.0 to 35.0 to 35.9 in 35.9 in adult, adult, unspecifie unspecifie d obesity d obesity type, type, unspecifie unspecifie d whether d whether serious serious comorbidit comorbidit y present y present Need for Need for Disease Active NPI:1 83 HPV HPV 06-27 [id number] vaccinatio vaccinatio 00:00: n n 00 Screening Screening Disease Active 2017-06 NPI :183 examinatio examinatio 06-26 66300 n for STD n for STD 00:00: (sexually (sexually 00 transmitte transmitte d disease) d disease) Well woman Well woman Disease Active 2017-06 N PI:183 exam exam 06-26 [id number] 00:00: 00 Contracept Contracept Disease Active 2017-06 N PI:183 debra debra 06-26 [id number] management management 00:00: 00 Overweight Overweight Disease Active N PI:183 2- [id number] 00:00: 00 BMI BMI Disease Active NPI:183 35.0-35.9, 35.0-35.9, 4- 13 06735 adult adult 00:00: 00 Allergies, Adverse Reactions, Alerts Allergy Allergy Status Severity Reaction(s) Onset Inactive Treating Comm ents Source Name Type Date Date Clinician Iodine Propensi Active Swelling NPI:18 3 ty to 07-22 [id number] adverse 00:00: reaction 00 s IODINE DRUG Active Swelling NPI:183 INGREDI 07-22 [id number] 00:00: 00 Social History Social Habit Start Date Stop Date Quantity Comments Source Exposure to Yes NPI:[id number] 1 SARS-CoV-2 (event) Alcohol intake 2021-03-16 2021-03-16 Current drinker NPI:1 [id number] 00:00:00 00:00:00 of alcohol (finding) History [facility] 2020-06-27 2020-06-27 3 NPI:[id number] 81 Alcohol Frequency 00:00:00 00:00:00 History [facility] 2020-06-27 2020-06-27 99 NPI:[id number] 81 Alcohol Std Drinks 00:00:00 00:00:00 History [facility] 2020-06-27 2020-06-27 99 NPI:[id number] 81 Alcohol Binge 00:00:00 00:00:00 Alcohol Comment 2020-06-27 2020-06-27 on occassion, NPI:18 [id number] 00:00:00 00:00:00 liquor and beer on occassions. Tobacco use and 2016-02-11 2016-02-11 Never used NPI:[id number] exposure 00:00:00 00:00:00 Sex [birth year] NPI:[id number] 00:00:00 00:00:00 Smoking Status Start Date Stop Date Source Never smoker Medications Ordered Filled Start Stop Current Ordering Indication Dosage Frequency Signature Comments Components Source Medication Medication Date Date Medication? Clinician (SIG) Name Name ibuprofen Yes [id number] 600mg Take 1 NPI:183 600 mg 9-27 [id number] tablet by [id number] 1 tablet 00:00: mouth 00 every 6 (six) hours as needed for Pain (scale 4-6). ibuprofen Yes [id number] 600mg Take 1 NPI:183 600 mg 9-27 783960 tablet by [id number] 1 tablet 00:00: mouth 00 every 6 (six) hours as needed for Pain (scale 4-6). ibuprofen 2021-0 2021- No 600mg 600 mg, NPI :183 (IBU) 02-19 Oral, [id number] tablet 600 08:45: 07:44 ONCE, 1 mg 00 :00 dose, Wed02/19/21 at 0345, DOUGLAS ibuprofen 2021-0 2021- No 600mg 600 mg, NPI :183 (IBU) 02-19 Oral, [id number] tablet 600 08:45: 07:44 ONCE, 1 mg 00 :00 dose, Wed02/19/21 at 0345, DOUGLAS omeprazole 2021-0 Yes 10mg Take 10 mg N PI:183 10 mg 1-07 by mouth [id number] capsule 21:45: daily. 25 omeprazole 2021-0 Yes 10mg Take 10 mg N PI:183 10 mg 1-07 by mouth [id number] capsule 21:45: daily. 25 cetirizine 1-0 Yes Take by NPI :183 HCl (ZYRTEC 1-07 mouth. 663047 1 ORAL) 21:45: 25 cetirizine 1-0 Yes Take by NPI :183 HCl (ZYRTEC 1-07 mouth. 587222 1 ORAL) 21:45: 25 omeprazole 2021-0 Yes 10mg Take 10 mg N PI:183 10 mg 1-07 by mouth [id number] capsule 21:45: daily. 25 cetirizine 1-0 Yes Take by NPI :183 HCl (ZYRTEC 1-07 mouth. 815241 1 ORAL) 21:45: 25 omeprazole 2021-0 Yes 10mg Take 10 mg N PI:183 10 mg 1-07 by mouth [id number] capsule 21:45: daily. 25 cetirizine 2021-0 Yes Take by NPI :183 HCl (ZYRTEC 1-07 mouth. 802951 1 ORAL) 21:45: 25 omeprazole 2021-0 Yes 10mg Take 10 mg N PI:183 10 mg 1-07 by mouth [id number] capsule 21:45: daily. 25 cetirizine 2021-0 Yes Take by NPI :183 HCl (ZYRTEC 1-07 mouth. 848475 1 ORAL) 21:45: 25 omeprazole 2021-0 Yes 10mg Take 10 mg N PI:183 10 mg 1-07 by mouth [id number] capsule 21:45: daily. 25 cetirizine 1-0 Yes Take by NPI :183 HCl (ZYRTEC 1-07 mouth. 292470 1 ORAL) 21:45: 25 omeprazole 1-0 Yes 10mg Take 10 mg N PI:183 10 mg 1-07 by mouth [id number] capsule 21:45: daily. 25 cetirizine 1-0 Yes Take by NPI :183 HCl (ZYRTEC 1-07 mouth. 289060 1 ORAL) 21:45: 25 omeprazole 2021-0 Yes 10mg Take 10 mg N PI:183 10 mg 1-07 by mouth [id number] capsule 15:45: daily. 25 cetirizine 1-0 Yes Take by NPI :183 HCl (ZYRTEC 1-07 mouth. 454901 1 ORAL) 15:45: 25 omeprazole 1-0 Yes 10mg Take 10 mg N PI:183 10 mg 1-07 by mouth [id number] capsule 15:45: daily. 25 cetirizine 1-0 Yes Take by NPI :183 HCl (ZYRTEC 1-07 mouth. 054880 1 ORAL) 15:45: 25 FENTanyl PF 2019- 2020- No 50ug 50 mcg, BOOM 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 I:183 (SUBLIMAZE 0-08 10-[place] [id number] 81 (PF)) 05:45: 05:13 Push, injection 00 :00 ONCE, 1 50 mcg dose, Trista 03/28/20 at 0045, STAT metoclopram 2019-06 2020- No 10mg 10 mg, NPI :183 julia HCl 0-08 10-08 Slow IV [id number] (REGLAN) 02:15: 01:29 Push, injection 00 :00 ONCE, 1 10 mg dose, 03/27/20 at 2115, DOUGLAS diphenhydrA 2019-06 2020- No 25mg 25 mg, NPI :183 MINE 0-08 10-08 Slow IV [id number] (BENADRYL) 02:15: 01:29 Push, injection 00 :00 ONCE, 1 25 mg dose, 03/27/20 at 2115, STAT ketorolac 2019-06 2020- No 30mg 30 mg, NPI:1 83 (TORADOL) 0-08 10-08 Slow IV [id number] 1 injection 02:15: 01:29 Push, 30 mg 00 :00 ONCE, 1 dose, 03/27/20 at 2115, DOUGLAS
Fa culty member approving Restricted medication : Sam KEMP NaCl 0.9% 2019-06 No 1000mL at 999 NPI :183 (NS) bolus 0-08 10-08 mL/hr, [id number] 1 infusion 02:15: 03:33 1,000 mL, 1,000 mL 00 :00 IV Infusion, ONCE, 1 dose, Wed03/27/20 at 2115, STAT ibuprofen 2019-06 Yes [id number] 600mg Take 1 NPI:183 600 mg 0-07 tablet by [id number] tablet 00:00: mouth 00 every 6 (six) hours as needed for Pain (scale 4-6). ondansetron 2019-06 Yes [id number] 4mg Take 1 NPI:183 (ZOFRAN 0-07 tablet by [id number] ODT) 4 mg 00:00: mouth disintegrat 00 every 8 ing tablet (eight) hours as needed for Nausea and Vomiting (N/V). ibuprofen 2019-06 No [id number] 600mg Take 1 NPI:183 600 mg 0-07 01-07 tablet by [id number] tablet 00:00: 00:00 mouth 00 :00 every 6 (six) hours as needed for Pain (scale 4-6). ondansetron 2019-06 No [id number] 4mg Take 1 NPI:183 (ZOFRAN 0-07 01-07 tablet by 197605 1 ODT) 4 mg 00:00: 00:00 mouth disintegrat 00 :00 every 8 ing tablet (eight) hours as needed for Nausea and Vomiting (N/V). ibuprofen 2019-06- No [id number] 600mg Take 1 NPI:183 600 mg 0-07 01-07 tablet by [id number] tablet 00:00: 00:00 mouth 00 :00 every 6 (six) hours as needed for Pain (scale 4-6). ondansetron 2019-06- No [id number] 4mg Take 1 NPI:183 (ZOFRAN 0-07 01-07 tablet by 620947 1 ODT) 4 mg 00:00: 00:00 mouth disintegrat 00 :00 every 8 ing tablet (eight) hours as needed for Nausea and Vomiting (N/V). ondansetron 2019- No 8mg 8 mg, Slow NPI:183 (ZOFRAN 12-04- IV Push, [id number] (PF)) 08:00: 06:57 ONCE, 1 injection 8 00 :00 dose, Tue mg 12/05/19 at 0300, DOUGLAS morpHINE 2019- No 4mg 4 mg, Slow BOOM 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 I:183 injection 4 12-04 IV Push, 131 8781 mg 08:00: 06:57 ONCE, 1 00 :00 dose, 12/05/19 at 0300, STAT NaCl 0.9% 2019- No 1000mL at 999 NPI :183 (NS) bolus 12-04- mL/hr, [id number] 1 infusion 07:00: 08:35 1,000 mL, 1,000 mL 00 :00 IV Infusion, ONCE, 1 dose, 12/05/19 at 0200, DOUGLAS traMADol 50 2019- Yes [id number] 50mg Take 1 NPI:183 mg tablet 6-16 tablet by 08351 81 00:00: mouth 00 every 6 (six) hours as needed (pain). proMETHazin 2019- Yes [id number] 25mg Take 1 NPI:183 e 25 mg 6-16 tablet by [id number] tablet 00:00: mouth 00 every 6 (six) hours as needed for Nausea and Vomiting (N/V). traMADol 50 2019-0 Yes [id number] 50mg Take 1 NPI:183 mg tablet 6-16 tablet by 12734 81 00:00: mouth 00 every 6 (six) hours as needed (pain). proMETHazin 2019- Yes [id number] 25mg Take 1 NPI:183 e 25 mg 6-16 tablet by [id number] tablet 00:00: mouth 00 every 6 (six) hours as needed for Nausea and Vomiting (N/V). traMADol 50 2019-0 2020- No [id number] 50mg Take 1 NPI:183 mg tablet 6-16 01-07 tablet by [id number] 781 00:00: 00:00 mouth 00 :00 every 6 (six) hours as needed (pain). proMETHazin 2019-0 2020- No [id number] 25mg Take 1 NPI:183 e 25 mg 12-04 tablet by [id number] 1 tablet 00:00: 00:00 mouth 00 :00 every 6 (six) hours as needed for Nausea and Vomiting (N/V). traMADol 50 No [id number] 50mg Take 1 NPI:183 mg tablet 12-04 tablet by [id number] 781 00:00: 00:00 mouth 00 :00 every 6 (six) hours as needed (pain). proMETHazin No [id number] 25mg Take 1 NPI:183 e 25 mg 12-04 tablet by [id number] 1 tablet 00:00: 00:00 mouth 00 :00 every 6 (six) hours as needed for Nausea and Vomiting (N/V). ondansetron 2019- No 4mg 4 mg, Slow NPI:183 (ZOFRAN - 05-28 IV Push, [id number] (PF)) 04:00: 03:11 ONCE, 1 injection 4 00 :00 dose, Wed mg 11/15/19 at 2300, DOUGLAS FENTanyl PF No 25ug 25 mcg, BOOM 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 I:183 (SUBLIMAZE 11-15-[place] [id number] 81 (PF)) 04:00: 03:11 Push, injection 00 :00 ONCE, 1 25 mcg dose, 11/15/19 at 2300, STAT morpHINE 2019-2019- No 4mg 4 mg, Slow BOOM 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 I:183 injection 4 11-15-28 IV Push, 131 8781 mg 02:15: 01:24 ONCE, 1 00 :00 dose, 11/15/19 at 2115, Routine ondansetron 2019- No 4mg 4 mg, Slow NPI:183 (ZOFRAN -15 11-28 IV Push, [id number] (PF)) 02:15: 01:23 ONCE, 1 injection 4 00 :00 dose, Wed mg 11/15/19 at 2115, DOUGLAS NaCl 0.9% 2019- No 1000mL at 999 NPI :183 (NS) bolus 11-15 05-28 mL/hr, [id number] 1 infusion 02:15: 04:49 1,000 mL, 1,000 mL 00 :00 IV Infusion, ONCE, 1 dose, 11/15/19 at 2115, STAT ibuprofen 2020-0 Yes [id number] 600mg Take 1 N PI:183 600 mg 5-27 tablet by [id number] tablet 00:00: mouth 00 every 6 (six) hours as needed for Pain (scale 4-6). acetaminoph 2020-0 Yes [id number] 1{tbl} Take 1 NPI:183 en-codeine 5-27 tablet by 1318 781 300-30 mg 00:00: mouth tablet 00 every 4 (four) hours as needed for Pain (scale 4-6). ibuprofen 2020-0 Yes [id number] 600mg Take 1 N PI:183 600 mg 5-27 tablet by [id number] tablet 00:00: mouth 00 every 6 (six) hours as needed for Pain (scale 4-6). acetaminoph 2020-0 Yes [id number] 1{tbl} Take 1 NPI:183 en-codeine 5-27 tablet by 1318 781 300-30 mg 00:00: mouth tablet 00 every 4 (four) hours as needed for Pain (scale 4-6). ibuprofen 2020-0 Yes [id number] 600mg Take 1 N PI:183 600 mg 5-27 tablet by [id number] tablet 00:00: mouth 00 every 6 (six) hours as needed for Pain (scale 4-6). acetaminoph 2020-0 Yes [id number] 1{tbl} Take 1 NPI:183 en-codeine 5-27 tablet by 1318 781 300-30 mg 00:00: mouth tablet 00 every 4 (four) hours as needed for Pain (scale 4-6). ibuprofen 2020-0 2020- No [id number] 600mg Take 1 NPI:183 600 mg 5-27 -07 tablet by [id number] tablet 00:00: 00:00 mouth 00 :00 every 6 (six) hours as needed for Pain (scale 4-6). acetaminoph 2020-0 2020- No [id number] 1{tbl} Take 1 NPI:183 en-codeine 5-27 -07 tablet by 131 8781 300-30 mg 00:00: 00:00 mouth tablet 00 :00 every 4 (four) hours as needed for Pain (scale 4-6). ibuprofen 2020-0 2020- No [id number] 600mg Take 1 NPI:183 600 mg 5-27 -07 tablet by [id number] tablet 00:00: 00:00 mouth 00 :00 every 6 (six) hours as needed for Pain (scale 4-6). acetaminoph No [id number] 1{tbl} Take 1 NPI:183 en-codeine 5-27 -07 tablet by 131 8781 300-30 mg 00:00: 00:00 mouth tablet 00 :00 every 4 (four) hours as needed for Pain (scale 4-6). ketorolac No 30mg 30 mg, NPI:1 83 (TORADOL) 10-18-30 Slow IV [id number] 1 injection 10:45: 10:20 Push, 30 mg 00 :00 ONCE, 1 dose, Trista 10/19/19 at 0545, DOUGLAS
Fa culty member approving Restricted medication : LUISA LUNA dexamethaso No 10mg 10 mg, IV NPI:183 ne 10-18-30 Push, [id number] (DECADRON 10:45: 10:20 ONCE, 1 PHOSPHATE) 00 :00 dose, Trista injection 10/19/19 at 10 mg 0545, STAT maalox:diph No 15mL 15 mL, NPI :183 enhydrAMINE 10-1830 Oral, [id number] 1 :lidocaine 10:45: 10:20 ONCE, 1 2 % viscous 00 :00 dose, Trista 1:1:1 20 at ([facility] 0545, [facility]) Routine oral suspension 15 mL famotidine No 20mg 20 mg, NPI: 183 (PEPCID 10-18-30 Slow IV [id number] (PF)) 10:45: 10:20 Push, injection 00 :00 ONCE, 1 20 mg dose, Trista 10/19/19 at 0545, DOUGLAS NaCl 0.9% 2019- No 1000mL at 999 NPI :183 (NS) bolus 30 04-30 mL/hr, [id number] 1 infusion 10:45: 11:17 1,000 mL, 1,000 mL 00 :00 IV Infusion, ONCE, 1 dose, Trista 20 at 0545, STAT acetaminoph 2020-0 2020- No 1{tbl} 1 tablet, NPI:183 en-codeine 3-12 -12 Oral, [id number] (TYLENOL 11:00: 09:52 ONCE, 1 #3) 300-30 00 :00 dose, Trista mg tablet 1 08/31/19 at tablet 0600, DOUGLAS ondansetron 2020-0 2020- No 4mg 4 mg, NPI: 183 (ZOFRAN-ODT -05 23- Oral, [id number] 1 ) 10:15: 09:07 ONCE, 1 disintegrat 00 :00 dose, Trista ing tablet 08/31/19 at 4 mg 0515, Routine ondansetron 2020-0 Yes [id number] 4mg Take 1 NPI:183 4 mg 3-12 tablet by [id number] disintegrat 00:00: mouth ing tablet 00 every 4 (four) hours as needed for Nausea and Vomiting (N/V). acetaminoph 2020-0 Yes [id number] 1{tbl} Take 1-2 NPI:183 en-codeine 3-12 tablets by 131 8781 300-30 mg 00:00: mouth tablet 00 every 6 (six) hours as needed (cough). ibuprofen 2020-0 Yes [id number] 800mg Take 1 N PI:183 800 mg 3-12 tablet by [id number] tablet 00:00: mouth 00 every 8 (eight) hours as needed for Pain (scale 4-6). ondansetron 2020-0 Yes [id number] 4mg Take 1 NPI:183 4 mg 3-12 tablet by [id number] disintegrat 00:00: mouth ing tablet 00 every 4 (four) hours as needed for Nausea and Vomiting (N/V). acetaminoph 2020-0 Yes [id number] 1{tbl} Take 1-2 NPI:183 en-codeine 3-12 tablets by 131 8781 300-30 mg 00:00: mouth tablet 00 every 6 (six) hours as needed (cough). ibuprofen 2020-0 Yes [id number] 800mg Take 1 N PI:183 800 mg 3-12 tablet by [id number] tablet 00:00: mouth 00 every 8 (eight) hours as needed for Pain (scale 4-6). ondansetron 2020-0 Yes [id number] 4mg Take 1 NPI:183 4 mg 3-12 tablet by [id number] disintegrat 00:00: mouth ing tablet 00 every 4 (four) hours as needed for Nausea and Vomiting (N/V). acetaminoph 2020-0 Yes [id number] 1{tbl} Take 1-2 NPI:183 en-codeine 3-12 tablets by 131 8781 300-30 mg 00:00: mouth tablet 00 every 6 (six) hours as needed (cough). ibuprofen 2020-0 Yes [id number] 800mg Take 1 N PI:183 800 mg 3-12 tablet by [id number] tablet 00:00: mouth 00 every 8 (eight) hours as needed for Pain (scale 4-6). ondansetron 2020-0 Yes [id number] 4mg Take 1 NPI:183 4 mg 3-12 tablet by [id number] disintegrat 00:00: mouth ing tablet 00 every 4 (four) hours as needed for Nausea and Vomiting (N/V). acetaminoph 2020-0 Yes [id number] 1{tbl} Take 1-2 NPI:183 en-codeine 3-12 tablets by 131 8781 300-30 mg 00:00: mouth tablet 00 every 6 (six) hours as needed (cough). ibuprofen 2020-0 Yes [id number] 800mg Take 1 N PI:183 800 mg 3-12 tablet by [id number] tablet 00:00: mouth 00 every 8 (eight) hours as needed for Pain (scale 4-6). ondansetron 2020-0 Yes [id number] 4mg Take 1 NPI:183 4 mg 3-12 tablet by [id number] disintegrat 00:00: mouth ing tablet 00 every 4 (four) hours as needed for Nausea and Vomiting (N/V). acetaminoph 2020-0 Yes [id number] 1{tbl} Take 1-2 NPI:183 en-codeine 3-12 tablets by 131 8781 300-30 mg 00:00: mouth tablet 00 every 6 (six) hours as needed (cough). ibuprofen 2020-0 Yes [id number] 800mg Take 1 N PI:183 800 mg 3-12 tablet by [id number] tablet 00:00: mouth 00 every 8 (eight) hours as needed for Pain (scale 4-6). ondansetron 2020-0 202- No [id number] 4mg Take 1 NPI:183 4 mg 3-06-27 tablet by [id number] disintegrat 00:00: 00:00 mouth ing tablet 00 :00 every 4 (four) hours as needed for Nausea and Vomiting (N/V). acetaminoph No [id number] 1{tbl} Take 1-2 NPI:183 en-codeine 3-06-27 tablets by 13 59151 300-30 mg 00:00: 00:00 mouth tablet 00 :00 every 6 (six) hours as needed (cough). ibuprofen No [id number] 800mg Take 1 NPI:183 800 mg 3-06-27 tablet by [id number] tablet 00:00: 00:00 mouth 00 :00 every 8 (eight) hours as needed for Pain (scale 4-6). ondansetron [id number] 4mg Take 1 NPI:183 4 mg 3-06-27 tablet by [id number] disintegrat 00:00: 00:00 mouth ing tablet 00 :00 every 4 (four) hours as needed for Nausea and Vomiting (N/V). acetaminoph No [id number] 1{tbl} Take 1-2 NPI:183 en-codeine 306-27 tablets by 13 26282 300-30 mg 00:00: 00:00 mouth tablet 00 :00 every 6 (six) hours as needed (cough). ibuprofen No [id number] 800mg Take 1 NPI:183 800 mg 3-06-27 tablet by [id number] tablet 00:00: 00:00 mouth 00 :00 every 8 (eight) hours as needed for Pain (scale 4-6). sod 2018-06 Yes [id number] 1{bottl Use 1 NPI:1 83 chlor-bicar 2-20 e} Bottle in 131 8781 b-squeez 00:00: each bottle 00 nostril 2 (NEILMED (two) SINUS RINSE times COMPLETE) daily. Use pkdv in hot shower 1 hour before bedtime promethazin 2018-06 Yes [id number] 5mL Take 5 mL NPI:183 e-codeine 2-20 by mouth 4 1318 781 6.25-10 00:00: (four) mg/5 mL 00 times syrup daily as needed for Cough. sod 2018-06 Yes [id number] 1{bottl Use 1 NPI:1 83 chlor-bicar 2-20 e} Bottle in 131 8781 b-squeez 00:00: each bottle 00 nostril 2 (NEILMED (two) SINUS RINSE times COMPLETE) daily. Use pkdv in hot shower 1 hour before bedtime promethazin 2018-06 Yes [id number] 5mL Take 5 mL NPI:183 e-codeine 2-20 by mouth 4 1318 781 6.25-10 00:00: (four) mg/5 mL 00 times syrup daily as needed for Cough. sod 2018-06 Yes [id number] 1{bottl Use 1 NPI:1 83 chlor-bicar 2-20 e} Bottle in 131 8781 b-squeez 00:00: each bottle 00 nostril 2 (NEILMED (two) SINUS RINSE times COMPLETE) daily. Use pkdv in hot shower 1 hour before bedtime promethazin 2018-06 Yes [id number] 5mL Take 5 mL NPI:183 e-codeine 2-20 by mouth 4 1318 781 6.25-10 00:00: (four) mg/5 mL 00 times syrup daily as needed for Cough. sod 2018-06 Yes [id number] 1{bottl Use 1 NPI:1 83 chlor-bicar 2-20 e} Bottle in 131 8781 b-squeez 00:00: each bottle 00 nostril 2 (NEILMED (two) SINUS RINSE times COMPLETE) daily. Use pkdv in hot shower 1 hour before bedtime promethazin 2018-06 Yes [id number] 5mL Take 5 mL NPI:183 e-codeine 2-20 by mouth 4 1318 781 6.25-10 00:00: (four) mg/5 mL 00 times syrup daily as needed for Cough. sod 2018-06 Yes [id number] 1{bottl Use 1 NPI:1 83 chlor-bicar 2-20 e} Bottle in 131 8781 b-squeez 00:00: each bottle 00 nostril 2 (NEILMED (two) SINUS RINSE times COMPLETE) daily. Use pkdv in hot shower 1 hour before bedtime promethazin 2018-06 Yes [id number] 5mL Take 5 mL NPI:183 e-codeine 2-20 by mouth 4 1318 781 6.25-10 00:00: (four) mg/5 mL 00 times syrup daily as needed for Cough. sod 2018-06- No [id number] 1{bottl Use 1 NPI: 183 chlor-bicar 2-20 - e} Bottle in 13 21269 b-squeez 00:00: 00:00 each bottle 00 :00 nostril 2 (NEILMED (two) SINUS RINSE times COMPLETE) daily. Use pkdv in hot shower 1 hour before bedtime promethazin 2018-06- No [id number] 5mL Take 5 mL NPI:183 e-codeine 2-06-27 by mouth 4 131 8781 6.25-10 00:00: 00:00 (four) mg/5 mL 00 :00 times syrup daily as needed for Cough. sod 2018-06- No [id number] 1{bottl Use 1 NPI: 183 chlor-bicar 2-20 06-27 e} Bottle in 13 01086 b-squeez 00:00: 00:00 each bottle 00 :00 nostril 2 (NEILMED (two) SINUS RINSE times COMPLETE) daily. Use pkdv in hot shower 1 hour before bedtime promethazin 2018-06- No [id number] 5mL Take 5 mL NPI:183 e-codeine 2-06-27 by mouth 4 131 8781 6.25-10 00:00: 00:00 (four) mg/5 mL 00 :00 times syrup daily as needed for Cough. traMADol 2018-06 Yes [id number] 50mg Take 1 NPI:183 (ULTRAM) 50 1- 578628 tablet by 1 981729 mg tablet 00:00: mouth 00 every 8 (eight) hours as needed for Pain (scale 4-6). traMADol 2018-06 Yes [id number] 50mg Take 1 NPI:183 (ULTRAM) 50 1-21 [id number] tablet by 1 118181 mg tablet 00:00: mouth 00 every 8 (eight) hours as needed for Pain (scale 4-6). traMADol 2018-06 Yes [id number] 50mg Take 1 NPI:183 (ULTRAM) 50 1- 271801 tablet by 1 787779 mg tablet 00:00: mouth 00 every 8 (eight) hours as needed for Pain (scale 4-6). traMADol 2018-06 Yes [id number] 50mg Take 1 NPI:183 (ULTRAM) 50 07-11 139280 tablet by 1 577047 mg tablet 00:00: mouth 00 every 8 (eight) hours as needed for Pain (scale 4-6). traMADol 2018-06 Yes [id number] 50mg Take 1 NPI:183 (ULTRAM) 50 07-11 [id number] tablet by 1 287345 mg tablet 00:00: mouth 00 every 8 (eight) hours as needed for Pain (scale 4-6). traMADol 2018-06- No [id number] 50mg Take 1 NPI:183 (ULTRAM) 50 07-11 722163 tablet by 9452436 mg tablet 00:00: 00:00 mouth 00 :00 every 8 (eight) hours as needed for Pain (scale 4-6). traMADol 2018-06- No [id number] 50mg Take 1 NPI:183 (ULTRAM) 50 07-11 [id number] tablet by 6358800 mg tablet 00:00: 00:00 mouth 00 :00 every 8 (eight) hours as needed for Pain (scale 4-6). traMADol Yes [id number] 50mg Take 1 NPI:183 (ULTRAM) 50 01-29 [id number] tablet by 1 854115 mg tablet 00:00: mouth 00 every 8 (eight) hours as needed for Pain (scale 4-6). ibuprofen Yes [id number] 600mg Take 1 NPI:183 600 mg 01-29 518557 tablet by [id number] 1 tablet 00:00: mouth 4 00 (four) times daily as needed for Pain (scale 4-6). acetaminoph Yes [id number] 975mg Take 3 NPI:183 en 01-29 369441 tablets by [id number] (TYLENOL) 00:00: mouth 4 325 mg 00 (four) tablet times daily. This is the maximum safe dose for a healthy adult. ibuprofen 2018- No [id number] 600mg Take 1 NPI:183 600 mg 01-29 779589 tablet by 22684 81 tablet 00:00: 00:00 mouth 4 00 :00 (four) times daily as needed for Pain (scale 4-6) for up to 5 days. acetaminoph 2019- No [id number] 975mg Take 3 NPI:183 en 01-29 959182 tablets by 089627 1 (TYLENOL) 00:00: 00:00 mouth 4 325 mg 00 :00 (four) tablet times daily for 5 days. This is the maximum safe dose for a healthy adult. traMADol 2019- No [id number] 50mg Take 1 NPI:183 (ULTRAM) 50 01-29 [id number] tablet by [id number] mg tablet 00:00: 00:00 mouth 00 :00 every 8 (eight) hours as needed for Pain (scale 4-6). medroxyPROG 2017-06- No [id number] 150mg NPI:183 ESTERone 06-26 [id number] (DEPO-PROVE 22:15: 21:14 RA) 00 :00 injection 150 mg medroxyPROG 2017-06- No [id number] 150mg NPI:183 ESTERone 06-26 [id number] (DEPO-PROVE 22:15: 21:14 RA) 00 :00 injection 150 mg ibuprofen Yes 600mg Take 1 NPI:1 83 600 mg 9-19 tablet by [id number] tablet 00:00: mouth 00 every 6 (six) hours as needed for Pain (scale 1-3) or Pain (scale 4-6). ibuprofen 2019- No 600mg Take 1 NPI: 183 600 mg 03-09 tablet by [id number] tablet 00:00: 00:00 mouth 00 :00 every 6 (six) hours as needed for Pain (scale 1-3) or Pain (scale 4-6). Immunizations Ordered Immunization Filled Immunization Date Status Commen ts Source Name Name 2020-06-27 Completed 00:00:00 2020-06-27 Completed 00:00:00 9 2020-06-27 Completed 00:00:00 9 2020-06-27 Completed 00:00:00 9 2020-06-27 Completed 00:00:00 HPV9 2020-06-27 Completed 00:00:00 HPV9 2020-06-27 Completed 00:00:00 HPV9 2020-06-27 Completed 00:00:00 HPV9 2020-06-27 Completed 00:00:00 Tdap 2017-12-21 Completed 00:00:00 Tdap 2017-12-21 Completed 00:00:00 Tdap 2017-12-21 Completed 00:00:00 Tdap 2017-12-21 Completed 00:00:00 TDAP 2017-12-21 Completed 00:00:00 TDAP 2017-12-21 Completed 00:00:00 TDAP 2017-12-21 Completed 00:00:00 TDAP 2017-12-21 Completed 00:00:00 TDAP 2017-12-21 Completed 00:00:00 TDAP 2017-12-21 Completed 00:00:00 TDAP 2017-12-21 Completed 00:00:00 TDAP 2017-12-21 Completed 00:00:00 TDAP 2017-12-21 Completed 00:00:00 TDAP 2017-12-21 Completed 00:00:00 Tdap 2017-12-21 Completed 00:00:00 Tdap 2017-12-21 Completed 00:00:00 Tdap 2016-07-09 Completed 00:00:00 Tdap 2016-07-09 Completed 00:00:00 Tdap 2016-07-09 Completed 00:00:00 Tdap 2016-07-09 Completed 00:00:00 TDAP 2016-07-09 Completed 00:00:00 TDAP 2016-07-09 Completed 00:00:00 TDAP 2016-07-09 Completed 00:00:00 TDAP 2016-07-09 Completed 00:00:00 TDAP 2016-07-09 Completed 00:00:00 TDAP 2016-07-09 Completed 00:00:00 TDAP 2016-07-09 Completed 00:00:00 TDAP 2016-07-09 Completed 00:00:00 TDAP 2016-07-09 Completed 00:00:00 TDAP 2016-07-09 Completed 00:00:00 Tdap 2016-07-09 Completed 00:00:00 Tdap 2016-07-09 Completed 00:00:00 Influenza Virus 2016-03-25 Completed NPI:[id number] Vaccine Quad IM 3+ 00:00:00 YRS Influenza Virus 2016-03-25 Completed NPI:[id number] Vaccine Quad IM 3+ 00:00:00 YRS Influenza Virus 2016-03-25 Completed NPI:[id number] Vaccine Quad IM 3+ 00:00:00 YRS Influenza Virus 2016-03-25 Completed NPI:[id number] Vaccine Quad IM 3+ 00:00:00 YRS Influenza Virus 2016-03-25 Completed NPI:[id number] Vaccine Quad IM 3+ 00:00:00 YRS Influenza Virus 2016-03-25 Completed NPI:[id number] Vaccine Quad IM 3+ 00:00:00 YRS Influenza Virus 2016-03-25 Completed NPI:[id number] Vaccine Quad IM 3+ 00:00:00 YRS Influenza Virus 2016-03-25 Completed NPI:[id number] Vaccine Quad IM 3+ 00:00:00 YRS Influenza Virus 2016-03-25 Completed NPI:[id number] Vaccine Quad IM 3+ 00:00:00 YRS Influenza Virus 2016-03-25 Completed NPI:[id number] Vaccine Quad IM 3+ 00:00:00 YRS Influenza Virus 2016-03-25 Completed NPI:[id number] Vaccine Quad IM 3+ 00:00:00 YRS Influenza Virus 2016-03-25 Completed NPI:[id number] Vaccine Quad IM 3+ 00:00:00 YRS Influenza Virus 2016-03-25 Completed NPI:[id number] Vaccine Quad IM 3+ 00:00:00 YRS Influenza Virus 2016-03-25 Completed NPI:[id number] Vaccine Quad IM 3+ 00:00:00 YRS Influenza Virus 2016-03-25 Completed NPI:[id number] Vaccine Quad IM 3+ 00:00:00 YRS Influenza Virus 2016-03-25 Completed NPI:[id number] Vaccine Quad IM 3+ 00:00:00 YRS Vital Signs Vital Name Observation Time Observation Value Comments Source Systolic blood pressure 2021-03-17 06:16:16 119 mm[Hg] Diastolic blood 2021-03-17 06:16:16 78 mm[Hg] NPI:1 [id number] pressure Heart rate 2021-03-17 06:16:16 66 /min NPI:1831 479351 Respiratory rate 2021-03-17 06:16:16 18 /min Oxygen saturation in 2021-03-17 06:16:16 98 /min Arterial blood by Pulse oximetry Body temperature 2021-03-17 03:36:00 37.17 Sandhya Body height 2021-03-17 03:36:00 170.2 cm NPI:1831 [id number] Body weight 2021-03-17 03:36:00 101.379 kg NPI:1831 446886 BMI 2021-03-17 03:36:00 35.01 kg/m2 NPI:1831 504957 Systolic blood pressure 2021-02-19 07:32:00 125 mm[Hg] Diastolic blood 2021-02-19 07:32:00 83 mm[Hg] NPI:1 [id number] pressure Heart rate 2021-02-19 07:32:00 75 /min NPI:1831 [id number] Body temperature 2021-02-19 07:32:00 36.83 Sandhya Respiratory rate 2021-02-19 07:32:00 22 /min Body weight 2021-02-19 07:32:00 99.791 kg NPI:1831 651726 BMI 2021-02-19 07:32:00 35.51 kg/m2 NPI:1831 623320 Oxygen saturation in 2021-02-19 07:32:00 100 /min Arterial blood by Pulse oximetry Systolic blood pressure 2020-06-27 21:28:00 115 mm[Hg] Diastolic blood 2020-06-27 21:28:00 71 mm[Hg] NPI:1 [id number] pressure Heart rate 2020-06-27 21:28:00 73 /min NPI:1831 317553 Body temperature 2020-06-27 21:28:00 36.94 Sandhya Respiratory rate 2020-06-27 21:28:00 16 /min Body height 2020-06-27 21:28:00 167.6 cm NPI:1831 757569 Body weight 2020-06-27 21:28:00 99.565 kg NPI:1831 842327 BMI 2020-06-27 21:28:00 35.43 kg/m2 NPI:1831 828380 Systolic blood pressure 2020-06-27 21:28:00 115 mm[Hg] Diastolic blood 2020-06-27 21:28:00 71 mm[Hg] NPI:1 [id number] pressure Heart rate 2020-06-27 21:28:00 73 /min NPI:1831 [id number] Body temperature 2020-06-27 21:28:00 36.94 Sandhya Respiratory rate 2020-06-27 21:28:00 16 /min Body height 2020-06-27 21:28:00 167.6 cm NPI:1831 [id number] Body weight 2020-06-27 21:28:00 99.565 kg NPI:1831 215119 BMI 2020-06-27 21:28:00 35.43 kg/m2 NPI:1831 843870 Systolic blood pressure 2020-03-28 05:38:00 113 mm[Hg] Diastolic blood 2020-03-28 05:38:00 84 mm[Hg] NPI:1 [id number] pressure Heart rate 2020-03-28 05:38:00 87 /min NPI:1831 847073 Respiratory rate 2020-03-28 05:38:00 18 /min Oxygen saturation in 2020-03-28 05:38:00 100 /min Arterial blood by Pulse oximetry Body temperature 2020-03-28 00:14:00 37.5 Sandhya Body height 2020-03-28 00:14:00 167.6 cm NPI:1831 106180 Body weight 2020-03-28 00:14:00 90.719 kg NPI:1831 945998 BMI 2020-03-28 00:14:00 32.28 kg/m2 NPI:1831 572985 Systolic blood pressure 2019-12-05 08:44:00 105 mm[Hg] Diastolic blood 2019-12-05 08:44:00 76 mm[Hg] NPI:1 [id number] pressure Heart rate 2019-12-05 08:44:00 68 /min NPI:1831 491241 Body temperature 2019-12-05 08:44:00 36.22 Sandhya Respiratory rate 2019-12-05 08:44:00 18 /min Oxygen saturation in 2019-12-05 08:44:00 100 /min Arterial blood by Pulse oximetry Body height 2019-12-05 06:33:00 167.6 cm NPI:1831 985804 Body weight 2019-12-05 06:33:00 94.348 kg NPI:1831 102950 BMI 2019-12-05 06:33:00 33.57 kg/m2 NPI:1831 682455 Systolic blood pressure 2019-11-16 04:00:00 122 mm[Hg] Diastolic blood 2019-11-16 04:00:00 78 mm[Hg] NPI:1 [id number] pressure Heart rate 2019-11-16 04:00:00 65 /min NPI:1831 389157 Respiratory rate 2019-11-16 04:00:00 18 /min Oxygen saturation in 2019-11-16 04:00:00 99 /min Arterial blood by Pulse oximetry Body temperature 2019-11-15 23:51:00 37.06 Sandhya Body height 2019-11-15 23:51:00 167.6 cm NPI:1831 536608 Body weight 2019-11-15 23:51:00 94.348 kg NPI:1831 768162 BMI 2019-11-15 23:51:00 33.57 kg/m2 NPI:1831 151314 Systolic blood pressure 2019-10-19 11:00:00 122 mm[Hg] Diastolic blood 2019-10-19 11:00:00 87 mm[Hg] NPI:1 [id number] pressure Heart rate 2019-10-19 11:00:00 79 /min NPI:1831 739468 Respiratory rate 2019-10-19 11:00:00 21 /min Oxygen saturation in 2019-10-19 11:00:00 100 /min Arterial blood by Pulse oximetry Body temperature 2019-10-19 09:39:00 36.83 Sandhya Body height 2019-10-19 09:39:00 167.6 cm NPI:1831 534245 Body weight 2019-10-19 09:39:00 95.255 kg NPI:1831 851611 BMI 2019-10-19 09:39:00 33.89 kg/m2 NPI:1831 345886 Systolic blood pressure 2019-08-31 10:00:00 119 mm[Hg] Diastolic blood 2019-08-31 10:00:00 68 mm[Hg] NPI:1 [id number] pressure Heart rate 2019-08-31 10:00:00 89 /min NPI:1831 617593 Body temperature 2019-08-31 08:58:00 37.39 Sandhya Respiratory rate 2019-08-31 08:58:00 14 /min Body height 2019-08-31 08:58:00 167.6 cm NPI:1831 814317 Body weight 2019-08-31 08:58:00 90.719 kg NPI:1831 353526 BMI 2019-08-31 08:58:00 32.28 kg/m2 NPI:1831 461705 Oxygen saturation in 2019-08-31 08:58:00 97 /min Arterial blood by Pulse oximetry Body temperature 2019-01-29 20:06:00 36.94 Sandhya Respiratory rate 2019-01-29 20:06:00 18 /min Body height 2019-01-29 20:06:00 167.6 cm NPI:1831 247467 Body weight 2019-01-29 20:06:00 87 kg NPI:1831 981488 BMI 2019-01-29 20:06:00 30.96 kg/m2 NPI:1831 243762 Oxygen saturation in 2019-01-29 20:06:00 98 /min Arterial blood by Pulse oximetry Systolic blood pressure 2019-01-29 20:06:00 126 mm[Hg] Diastolic blood 2019-01-29 20:06:00 78 mm[Hg] NPI:1 [id number] pressure Heart rate 2019-01-29 20:06:00 75 /min NPI:1831 [id number] Procedures Procedure Date / Time Performed Performing Clinician [facility] e XR FOREARM 2 VW RIGHT 2021-03-17 04:50:31 Sam Kemp NPI:18 [id number] XR HAND 3+ VW RIGHT 2021-03-17 04:19:27 Sam Kemp NPI:1831 [id number] CONSENT/REFUSAL FOR 2021-03-17 03:27:16 Doctor Unassigned, No 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 I:[id number] DIAGNOSIS AND TREATMENT Name NOTICE OF PRIVACY 2021-02-19 07:22:51 Doctor Unassigned, No PRACTICES Name CONSENT/REFUSAL FOR 2021-02-19 07:22:35 Doctor Unassigned, No BOOM 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 I:[id number] DIAGNOSIS AND TREATMENT Name POCT TEST 2020-06-27 22:14:00 Wilbert Willoughby Alannah NPI:1 [id number] HIV 1/2 AG-AB WITH REFLEX 2020-06-27 22:13:00 Wilbert Willoughby R GARDASIL 9 (HPV 9V) 2020-06-27 22:00:47 Samy Willoughbyafia R NPI:[id number] ABDOMEN PELVIS WO 2020-03-28 03:42:05 Sam Kemp NPI:841 [id number] CONTRAST US GALL BLADDER 2020-03-28 03:06:15 Sam Kemp NPI:[id number] LIPASE 2020-03-28 01:18:00 Sam Kemp NPI:[id number] 81 MAGNESIUM 2020-03-28 01:18:00 Sam Kemp NPI:[id number] 81 COMP. METABOLIC PANEL 2020-03-28 01:18:00 Sam Kemp NPI:18 [id number] ([id number]) CBC WITH DIFF 2020-03-28 01:18:00 Sam Kemp NPI:[id number] 81 URINALYSIS 2020-03-28 01:18:00 Sam Kemp NPI:[id number] 81 COVID-19 (ID NOW RAPID 2020-03-28 01:18:00 Sam Kemp NPI:1 [id number] TESTING) POCT TEST 2020-03-28 01:17:00 Sam Kemp NPI:1831 [id number] CONSENT/REFUSAL FOR 2020-03-28 00:05:35 Doctor Unassigned, No BOOM 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 I:[id number] DIAGNOSIS AND TREATMENT Name US GALL BLADDER 2019-12-05 07:51:00 Radha Grider NPI:[id number] COVID-19 (ID NOW RAPID 2019-12-05 07:03:00 Radha Grider NPI :[id number] TESTING) LIPASE 2019-12-05 06:37:00 Radha Grider NPI:[id number] TEST, SERUM 2019-12-05 06:37:00 Radha Grider HEPATIC FUNCTION PANEL 2019-12-05 06:37:00 Radha Grider NPI :[id number] ([id number]) (ALB,T.PRO,BILI T,BU/BC,ALT,AST,ALK PHOS) BASIC METABOLIC PANEL 2019-12-05 06:37:00 Radha Grider (NA, K, CL, CO2, GLUCOSE, BUN, CREATININE, CA) CBC WITH DIFFERENTIAL 2019-12-05 06:37:00 Radha Grider Lee URINALYSIS 2019-12-05 06:37:00 Radha Grider NPI:[id number] NOTICE OF PRIVACY 2019-12-05 06:13:37 Doctor Unassigned, No PRACTICES Name CONSENT/REFUSAL FOR 2019-12-05 06:13:05 Doctor Unassigned, No BOOM 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 I:[id number] DIAGNOSIS AND TREATMENT Name CT ABDOMEN PELVIS WO 2019-11-16 04:00:55 Sam Kemp NPI:[id number] CONTRAST POCT TEST 2019-11-16 03:26:00 Sam Kemp NPI:1831 [id number] US GALL BLADDER 2019-11-16 02:38:56 Sam Kemp NPI:[id number] XR CHEST 1 VW 2019-11-16 01:09:53 Ian Greene NPI:[id number] 81 PROTHROMBIN TIME / INR 2019-11-16 00:24:00 Ian Greene NPI:1 [id number] ACTIVATED PARTIAL 2019-11-16 00:24:00 Ian Greene NPI:[id number] THRMPLAS KEESHA LIPASE 2019-11-16 00:21:00 Ian Greene NPI:[id number] 81 TROPONIN I 2019-11-16 00:21:00 Ian Greene NPI:[id number] 81 COMP. METABOLIC PANEL 2019-11-16 00:21:00 Ian Greene NPI:18 [id number] ([id number]) CBC WITH DIFFERENTIAL 2019-11-16 00:21:00 Ian Greene NPI:18 [id number] EKG-12 LEAD 2019-11-16 00:13:51 Ian Greene NPI:[id number] CONSENT/REFUSAL FOR 2019-11-15 23:43:02 Doctor Unassigned, No BOOM 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 I:[id number] DIAGNOSIS AND TREATMENT Name XR CHEST 1 VW 2019-10-19 10:55:14 Luisa Luna R NPI:[id number] CORONAVIRUS COVID-19 2019-10-19 10:25:00 Luisa Luna R NPI:574 [id number] TESTING POCT TEST 2019-10-19 10:18:00 Luisa Luna R NPI:1831 [id number] LIPASE 2019-10-19 10:17:00 Luisa Luna R NPI:[id number] 81 TROPONIN I 2019-10-19 10:17:00 Luisa Luna R NPI:[id number] 81 COMP. METABOLIC PANEL 2019-10-19 10:17:00 Luisa Luna R NPI:18 [id number] ([id number]) CBC WITH DIFFERENTIAL 2019-10-19 10:17:00 Luisa Luna R NPI:18 [id number] URINALYSIS 2019-10-19 10:17:00 Luisa Luna R NPI:[id number] 81 EKG-12 LEAD 2019-10-19 09:42:33 Luisa Luna R NPI:[id number] 81 XR CHEST 1 VW 2019-08-31 09:14:47 Jessica Bob NPI:[id number] 81 RAPID STREP SCREEN FOR 2019-08-31 09:08:00 Jessica Bob NPI:1 [id number] GROUP A ADC,CLC OR LCC ONLY - 2019-08-31 09:08:00 Jessica Bob NPI:18 [id number] INFLUENZA A & B DIRECT ANTIGEN NOTICE OF PRIVACY 2019-08-31 08:52:15 Doctor Unassigned, No PRACTICES Name CONSENT/REFUSAL FOR 2019-08-31 08:51:56 Doctor Unassigned, No BOOM 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 I:[id number] DIAGNOSIS AND TREATMENT Name XR FOREARM 2 VW RIGHT 2019-01-29 20:53:12 Manan Arce NPI:18 [id number] XR HAND 3+ VW RIGHT 2019-01-29 20:53:12 Manan Arce NPI:1831 [id number] ED ORTHOPEDIC INJURY 2019-01-29 19:59:18 Manan Arce NPI:[id number] TREATMENT - UPPER EXTREMITY NOTICE OF PRIVACY 2019-01-29 19:47:11 Doctor Unassigned, No PRACTICES Name CONSENT/REFUSAL FOR 2019-01-29 19:46:56 Doctor Unassigned, No BOOM 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 I:[id number] DIAGNOSIS AND TREATMENT Name Encounters Start End Encounter Admission Attending Care Care Encounter Source Date/Time Date/Time Type Type Clinicians Facility Department ID 2021-04-22 Emergency [facility] [id number] NPI:183 01:27:59 [id number] 6843-11-01 Emergency [facility] [id number] NPI:183 19:32:10 [id number] 8063-10-29 Emergency [facility] [id number] NPI:183 21:43:36 [id number] 4522-10-01 2021-03-21 Outpatient R ROMAN [facility] [id number] 2Q-20 NPI:183 14:45:00 14:45:00 RIRI [id number] 2021-03-21 2021-03-21 Outpatient R ROMAN [facility] [id number] NPI:183 14:45:00 14:45:00 RIRI [id number] 81 2021-03-20 2021-03-20 [email or web address] [id number] [id number] NPI:183 00:00:00 00:00:00 Riri Piedra WIRE WELDER 350.1.13.10 [id number] [facility] 4.2.7.2.686 MATERNAL [id number] & CHILD [address] [place] [address] 2021-03-19 2021-03-19 Outpatient Alannah BENAVIDEZ [facility] [id number]-20 NPI:183 14:45:00 14:45:00 JAMIE [id number] 1 2021-03-19 2021-03-19 Outpatient Alannah BENAVIDEZ [facility] [id number] NPI:183 14:45:00 14:45:00 JAMIE [id number] 1 2021-03-18 2021-03-18 Outpatient Alannah BENAVIDEZ [facility] [id number] 2Q-20 NPI:183 15:15:00 15:15:00 JAMIE [id number] 1 2021-03-18 2021-03-18 Outpatient R PRAMOD [facility] [id number] NPI:183 15:15:00 15:15:00 JAMIE [id number] 1 2021-03-16 2021-03-17 Emergency Sam Kemp [facility] 1.2.840.114 [id number] NPI:183 22:39:00 01:20:00 Farhan Nelli 350.1.13.10 1 [id number] [place] 4.2.7.2.686 Bells [id number] 2021-02-20 2021-02-20 Telephone Lara Atkinson 1.2.840.114 [id number] NPI:183 00:00:00 00:00:00 FAUSTO 350.1.13.10 13 [id number] [facility] 4.2.7.2.686 [id number] 2021-02-19 2021-02-19 Emergency [facility] [id number] NPI:183 02:37:00 03:44:00 Joanne Aiken 350.1.13.10 [id number] [place] 4.2.7.2.686 Bells [id number] 2020-09-10 2020-09-10 [email or web address] 1.2.840.114 [id number] 00:00:00 00:00:00 Outreach Juan PRIMARY 350.1.13.10 [facility] 4.2.7.2.686 PAVILLION [id number] 2020-09-10 2020-09-10 [email or web address] 1.2.840.114 [id number] NPI:183 00:00:00 00:00:00 Outreach Juan PRIMARY 350.1.13.10 1 [id number] [facility] 4.2.7.2.686 PAVILLION [id number] 2020-08-27 2020-08-27 Outpatient R [facility] [id number] NPI:183 10:30:00 10:30:00 [id number] 2020-08-27 2020-08-27 Outpatient R CASE [facility] [id number] NPI:183 10:30:00 10:30:00 ROSHUNDA [id number] 81 2020-08-26 2020-08-26 Outpatient R [facility] [id number] NPI:183 13:30:00 13:30:00 [id number] 2020-08-26 2020-08-26 Outpatient R [facility] [id number] NPI:183 13:30:00 13:30:00 [id number] 2020-07-11 2020-07-11 Outpatient R CASE [facility] [id number] -[id number] NPI:183 13:15:00 13:15:00 ROSHUNDA [id number] 81 2020-07-11 2020-07-11 Outpatient R CASE [facility] [id number] NPI:183 13:15:00 13:15:00 ROSHUNDA [id number] 81 2020-06-27 2020-06-27 Office Case [facility] 1.2.840.114 [id number] NPI:183 15:21:42 16:19:38 Visit Wilbert R WIRE WELDER 350.1.13.10 [id number] [facility] 4.2.7.2.686 MATERNAL [id number] & CHILD 107 [facility] 2020-06-27 2020-06-27 Office Case [facility] 1.2.840.114 [id number] 15:21:42 16:19:38 Visit Wilbert R WIRE WELDER 350.1.13.10 [facility] 4.2.7.2.686 MATERNAL [id number] & CHILD 107 [facility] 2020-06-27 2020-06-27 Outpatient R CASE [facility] [id number] -[id number] NPI:183 15:30:00 15:30:00 ROSHUNDA [id number] 81 2020-06-27 2020-06-27 Outpatient R CASE [facility] [id number] NPI:183 15:30:00 15:30:00 ROSHUNDA [id number] 81 2020-06-05 2020-06-05 Outpatient CASE [facility] [id number] -[id number] NPI:183 15:15:00 15:15:00 [facility] [id number] 2020-06-05 2020-06-05 Outpatient R CASE [facility] [id number] NPI:183 15:15:00 15:15:00 MCKINLEYJAYLIN [id number] 81 2020-03-27 2020-03-28 Emergency Sam Kemp [facility] 1.2.840.114 [id number] NPI:183 19:22:00 00:39:00 Farhan Aiken 350.1.13.10 1 [id number] [place] 4.2.7.2.686 Bells [id number] 2019-12-05 2019-12-05 Emergency Cheo [facility] 1.2.301.306 [id number] NPI:183 01:22:11 03:48:00 [place] 350.1.13.10 [id number] [place] 4.2.7.2.686 Bells [id number] 2019-12-05 2019-12-05 Emergency X CHEO [facility] ERT [id number] NPI:183 01:22:11 03:48:00 RADHA [id number] 1 2019-11-15 2019-11-16 Emergency Sam Kemp [facility] 1.2.840.114 [id number] NPI:183 19:21:57 00:00:00 Farhan Aiken 350.1.13.10 1 [id number] [place] 4.2.7.2.686 Bells [id number] 2019-11-15 2019-11-16 Emergency X Sam KEMP [facility] ERT [id number] NPI:183 19:21:57 00:00:00 [id number] 2019-10-19 2019-10-19 Emergency Jeremy [facility] [id number] [id number] NPI:183 04:35:17 06:17:00 Luisa Aiken 350.1.13.10 1 [id number] [place] 4.2.7.2.686 Bells [id number] 2019-10-19 2019-10-19 Emergency X JEREMY [facility] ERT [id number] NPI:183 04:35:17 06:17:00 LUISA [id number] 1 2019-08-31 2019-08-31 Emergency [email or web address] [id number] [id number] NPI:183 03:53:07 05:03:00 Jessica Aiken 350.1.13.10 1 [id number] [place] 4.2.7.2.686 Bells [id number] 2019-08-31 2019-08-31 Emergency X PAULINO, [facility] ERT [id number] NPI:183 03:53:07 05:03:00 JESSICA [id number] 1 2019-06-09 2019-06-09 Emergency X YAZMIN III, [facility] ERT [id number] NPI:183 16:17:18 19:21:00 MANAN [id number] 1 2019-01-29 2019-01-29 Emergency [email or web address] 1.2.770.830 [id number] NPI:183 15:09:14 18:22:00 Manan Aiken 350.1.13.10 1 [id number] [place] 4.2.7.2.686 Bells [id number] 2019-01-29 2019-01-29 Orders Doctor BRONWYN 1.2.840.114 [id number] NPI:183 00:00:00 00:00:00 Only Unassigned, FAUSTO 350.1.13.10 [id number] [place] [address].2.7.2.686 [id number] Results Test Description Test Time Test Comments Results Result Comments Source HIV 1/2 AG-AB WITH REFLEX 2020-06-28 07:10:00 Test Item Value Reference Range Interpretation Comme nts HIV Semi-quantitative (test code = Negative Negative 43361-3) MARCELINO (test code = MARCELINO) Non-reactive for HIV-1 antigen and HIV-1/HIV-2 antibodies. ?No laboratory evidence of HIV infection. ?Repeat in 2-4 weeks if acute HIV infection is suspected. NPI:[id number] 1/2 AG-AB WITH [id number] 07:10:00 Test Item Value Reference Range Interpretation Comments HIV Negative Negative Semi-quantitative (test code = 91737-5) MARCELINO (test code = Non-reactive for HIV-1 MARCELINO) antigen and HIV-1/HIV-2 antibodies. ?No laboratory evidence of HIV infection. ?Repeat in 2-4 weeks if acute HIV infection is suspected. NPI:[id number] 22:15:00 Test Item Value Reference Range Interpretation Comments POCT PREG (test code = 1605) Negative On board controls acceptable with C Yes Line (test code = 3574) POCT PREG LOT # (test code = 3575) POCT PREG TEST DATE (test code = 3576) NPI:[id number] 22:15:00 Test Item Value Reference Range Interpretation Comments POCT PREG (test code = 1605) Negative On board controls acceptable with C Yes Line (test code = 3574) POCT PREG LOT # (test code = 3575) POCT PREG TEST DATE (test code = 3576) NPI:[id number] ABDOMEN PELVIS WO [id number] 05:11:45 No acute intra- abdominal or pelvic findings. Cholelithiasis. Left ovarian cyst measuring 4.6 cm. Follow-up sonographic in 6 weeks. Preliminary Report Dictated by Resident: Meagan Wagoner I, Elijah Abbasi MD., have reviewed this study and agree with theabove report.EXAM: CTABDOMEN AND PELVIS WITHOUT CONTRAST HISTORY: Abd pain, acute, generalized COMPARISON: CT of the abdomen dated 12/05/2019. TECHNIQUE AND FINDINGS: Contiguous axial imaging from the level of the lungbasesthrough the pubic symphysis was performed without the intravenousadministration of contrast. Coronaland sagittal reconstructions wereobtained. ?Auto mA and/or iterative reconstruction were used to redu ceradiation dose. FINDINGS: LOWER THORAX: 2 to 3 mm subpleural solid nodule within the right lower lobe(2:11-12). LIVER: No focal hepatic lesions within limits of unenhanced technique.Normal liver contour. GALLBLADDER AND BILIARY TREE: Cholelithiasis. No biliary dilatation. SPLEEN: No splenomegaly. PANCREAS: No ductal dilation. ADRENAL GLANDS: No adrenal nodules. KIDNEYS: No hydronephrosis or nephrolithiasis. No contour deforming renallesion. PERITONEUM AND RETROPERITONEUM: No free air or fluid. A smallfat-containing umbilical hernia is seen. LYMPH NODES: No [...] AND PELVIS WITHOUT CONTRASTHISTORY: Abd pain, acute, generalizedCOMPARISON: CT of the abdomen dated 12/05/2019.TECHNIQUE AND [...] in 6 weeks.Preliminary Report Dictated by Resident: Meagan Benoit, Elijah Richardson MD., have reviewed this study and agree with theabove report.NPI:[id number] WITH [id number] 02:09:00 Test Item Value Reference Range Interpretation [...] RDW-SD (test code = 45.4 fL 39-49.9 67126-3) RDW-CV (test code = 14.1 % 12-15.5 788-0) PLT (test code = See_Comment [Automated 777-3) message] The sy stem which generated this result transmitted reference range : 166 - 358 10*3/ ?L. The reference r renee was not used to interpret this result as normal/abnormal . MPV (test code = 10.1 fL 9.5-12.9 22333-4) NRBC/100 WBC (test See_Comment [Automat ed code = [id number]) message] The system which generated this result transmitted reference range : 0.0 - 10.0 /100 WBCs. The refer ence range was not u sed to interpret th is result as normal/abnormal . NRBC x10^3 (test code <0.01 See_Comment [Auto mated = [id number]) message] The s ystem which generated this result transmitted reference range : 10*3/?L. The reference range was not used to interpret this result as normal/abnormal . GRAN MAT (NEUT) % 56.3 % (test code = 770-8) IMM GRAN % (test code 0.90 % = 1026172789) LYMPH % (test code = 31.9 % 736-9) MONO % (test code = 9.5 % 5905-5) EOS % (test code = 0.5 % 713-8) BASO % (test code = 0.9 % 706-2) GRAN MAT x10^3(ANC) 2.44 10*3/uL 1.88-7.09 (test code = 1597666702) IMM GRAN x10^3 (test 0.04 10*3/uL 0-0.06 code = 2532964916) LYMPH x10^3 (test code 1.38 10*3/uL 1.32-3.29 = 731-0) MONO x10^3 (test code 0.41 10*3/uL 0.33-0.92 = 742-7) EOS x10^3 (test code = <0.03 0.03-0.39 L 711-2) BASO x10^3 (test code 0.04 10*3/uL 0.01-0.07 = 704-7) BANDS (test code = Increased A 4599971739) REACT LYMPHS (test Rare code = 4011491670) Lab Interpretation Abnormal (test code = 78776-8) NPI:[id number] 02:04:00 Test Item Value Reference Range Interpretation Comments APPEARANCE (test code = Clear Clear 8956574937) COLOR (test code = Yellow Yellow 3827219284) PH (test code = 4.8-8.0 5996921379) SP GRAVITY (test code = 1.003-1.030 5263991426) GLU U QUAL (test code = Normal Normal 4546588646) BLOOD (test code = Negative Negative 4772492546) KETONES (test code = Negative Negative 3584829579) PROTEIN (test code = Negative Negative 2887-8) UROBILIN (test code = Normal Normal 5521572258) BILIRUBIN (test code = Negative Negative 5749309469) NITRITE (test code = Negative Negative 2731534990) LEUK GABBY (test code = Negative Negative 4134024828) RBC/HPF (test code = See_Comment [Autom ated message] 4970256993) The system [employer] generated this result transmitted ref erence range: 0 - 3 HP F. The reference range was not used to int erpret this result as normal/abnormal . WBC/HPF (test code = See_Comment [Autom ated message] 6911323677) The system [employer] generated this result transmitted ref erence range: 0 - 5 HP F. The reference range was not used to int erpret this result as normal/abnormal . BACTERIA (test code = Few Negative A 7498507585) MUCOUS (test code = Slight Negative LPF A 8316238453) SQ EPITH (test code = HPF 7601419181) Lab Interpretation (test Abnormal code = 51078-3) NPI:[id number] (ID NOW RAPID TESTING)2020-03-28 01:54:00 Test Item Value Reference Range Interpretation Comments SARS-CoV-2 Rapid ID NOW Not Detected Not Detected (test code = 89100-6) MARCELINO (test code = MARCELINO) ID NOW COVID-19 Assay is an isothermal nucleic acid amplification test intended for the qualitative detection of nucleic acid from SARS-CoV-2 viral RNA in nasopharyngeal (BOOM 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) specimens. It is used under Emergency Use [...] indicated. Lab Interpretation Normal (test code = 73028-4) NPI:[id number]. METABOLIC PANEL (19884)2020-03-28 01:44:00 Test Item Value Reference Range Interpretation Comments NA (test code = 136 mmol/L 135-145 5740596957) K (test code = 3.9 mmol/L 3.5-5 6331553669) CL (test code = 97 mmol/L 98-108 L 2486999358) CO2 TOTAL (test code = 30 mmol/L 23-31 3998915998) AGAP (test code = 2-16 8435625681) BUN (test code = 7 mg/dL 7-23 3578653652) GLUCOSE (test code = 92 mg/dL 70-110 7679786483) CREATININE (test code = 0.63 mg/dL 0.5-1.04 3715086743) TOTAL BILI (test code = 0.5 mg/dL 0.1-1.6 8414186578) CALCIUM (test code = 9.6 mg/dL 8.6-10.6 8603744983) T PROTEIN (test code = 8.3 g/dL 6.3-8.2 H 2825030653) ALBUMIN (test code = 4.4 g/dL 3.5-5 9174445533) ALK PHOS (test code = 113 U/L 34-122 5939837125) ALTv (test code = 75 U/L 5-35 H 1742-6) AST(SGOT) (test code = 52 U/L 13-40 H 3515365470) eGFR Calculation mL/min/1.73m2 (Non-) (test code = 2488670050) eGFR Calculation mL/min/1.73m2 () (test code = 0300836360) MARCELINO (test code = MARCELINO) Association of [...] tests). Lab Interpretation Abnormal (test code = 96059-3) NPI:[id number] 01:44:00 Test Item Value Reference Range Interpretation Comments LIPASE (test code = 3127552008) 88 U/L 0-220 Lab Interpretation (test code = Normal 59126-5) NPI:[id number] 01:44:00 Test Item Value Reference Range Interpretation Comments MAGNESIUM (test code = 0179290827) 2.1 mg/dL 1.7-2.4 Lab Interpretation (test code = Normal 89995-2) NPI:[id number] 01:17:00 Test Item Value Reference Range Interpretation Comments POCT PREG (test code = 1605) Negative On board controls acceptable with Present C Line (test code = 3574) POCT PREG LOT # (test code = 3575) [id number] POCT PREG TEST DATE (test 02/18/2021 code = 3576) Lab Interpretation (test code = Normal 13689-1) NPI:[id number] (ID NOW RAPID TESTING)2019-12-05 07:32:00 Test Item Value Reference Range Interpretation Comments SARS-CoV-2 Rapid ID NOW Not Detected Not Detected (test code = 55520-4) MARCELINO (test code = MARCELINO) ID NOW COVID-19 Assay is an isothermal nucleic acid amplification test intended for the qualitative detection of nucleic acid from SARS-CoV-2 viral RNA in nasopharyngeal (BOOM 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) specimens. It is used under Emergency Use [...] indicated. Lab Interpretation Normal (test code = 33247-5) NPI:[id number] Metabolic Panel (NA, K, CL, CO2, GLUCOSE, BUN, CREATININE, CA)2019-12-05 07:04:00 Test Item Value Reference Range Interpretation Comments NA (test code = 140 mmol/L 135-145 6688805258) K (test code = 3.9 mmol/L 3.5-5 5888201640) CL (test code = 102 mmol/L 98-108 2708663265) CO2 TOTAL (test code = 30 mmol/L 23-31 6199868840) AGAP (test code = 2-16 7619245255) BUN (test code = 10 mg/dL 7-23 3962604018) GLUCOSE (test code = 91 mg/dL 70-110 2675189251) CREATININE (test code 0.67 mg/dL 0.5-1.04 = 7315444520) CALCIUM (test code = 9.7 mg/dL 8.6-10.6 0881186759) eGFR Calculation mL/min/1.73m2 (Non-) (test code = 0628507988) eGFR Calculation mL/min/1.73m2 () (test code = 9417221620) MARCELINO (test code = MARCELINO) Association of [...] or urine or abnormalities in imaging tests). NPI:[id number] Function Panel (ALB, T.PRO, BILI T, BU/BC, ALT, AST, ALK PHOS)2019-12-05 07:04:00 Test Item Value Reference Range Interpretation Comments TOTAL BILI (test code = 4464973483) 0.3 mg/dL 0.1-1.1 BILI UNCON (test code = 2330537624) 0.4 mg/dL 0.1-1.1 BILI CONJ (test code = 2493030233) 0.0 mg/dL 0-0.3 T PROTEIN (test code = 1365832847) 8.7 g/dL 6.3-8.2 H ALBUMIN (test code = 1229486167) 4.8 g/dL 3.5-5 ALK PHOS (test code = 6287625828) 110 U/L 34-122 ALTv (test code = 1742-6) 20 U/L 5-35 AST(SGOT) (test code = 2750654780) 24 U/L 13-40 Lab Interpretation (test code = Abnormal 85834-6) NPI:[id number] [id number] 07:04:00 Test Item Value Reference Range Interpretation Comments LIPASE (test code = 0901754463) 117 U/L 0-220 Lab Interpretation (test code = Normal 98666-6) NPI:[id number] Test, [id number] 07:00:00 Test Item Value Reference Range Interpretation Comments PREG SERUM (test code Negative = 6220891824) MARCELINO (test code = MARCELINO) Less than 10 IU/L. ?If low titer or ectopic is suspected, resubmit specimen in 48-72 hours. NPI:[id number] 06:55:00 Test Item Value Reference Range Interpretation Comments APPEARANCE (test code = Clear Clear 5084552558) COLOR (test code = Straw Yellow A 7899607312) PH (test code = 4.8-8.0 1423881467) SP GRAVITY (test code = 1.003-1.030 9314904583) GLU U QUAL (test code = Normal Normal 0998808385) BLOOD (test code = Negative Negative 5481277761) KETONES (test code = Negative Negative 4272295039) PROTEIN (test code = Negative Negative 2887-8) UROBILIN (test code = Normal Normal 6979770828) BILIRUBIN (test code = Negative Negative 9824492902) NITRITE (test code = Negative Negative 0579749796) LEUK GABBY (test code = Negative Negative 7100617395) RBC/HPF (test code = See_Comment [Autom ated message] 8112448844) The system [employer] generated this result transmitted ref erence range: 0 - 3 HP F. The reference range was not used to int erpret this result as normal/abnormal . WBC/HPF (test code = See_Comment [Autom ated message] 3123782095) The system [employer] generated this result transmitted ref erence range: 0 - 5 HP F. The reference range was not used to int erpret this result as normal/abnormal . BACTERIA (test code = Negative Negative 0584453695) MUCOUS (test code = Slight Negative LPF A 0646292277) SQ EPITH (test code = HPF 1029809409) Lab Interpretation (test Abnormal code = 23721-8) NPI:[id number] WITH [id number] 06:47:00 Test Item Value Reference Range Interpretation Comments WBC (test code = See_Comment [Automated 1990-2) message] The [employer] stem which generated this result transmitted reference [...] RDW-SD (test code = 42.7 fL 39-49.9 64129-9) RDW-CV (test code = 13.0 % 12-15.5 788-0) PLT (test code = See_Comment H [Automated 777-3) message] The sy stem which generated this result transmitted reference range : 166 - 358 10*3/ ?L. The reference r renee was not used to interpret this result as normal/abnormal . MPV (test code = 10.0 fL 9.5-12.9 72464-2) NRBC/100 WBC (test See_Comment [Automat ed code = 8091529750) message] The system which generated this result transmitted reference range : 0.0 - 10.0 /100 WBCs. The refer ence range was not u sed to interpret th is result as normal/abnormal . NRBC x10^3 (test code <0.01 See_Comment [Auto mated = 5913629979) message] The s ystem which generated this result transmitted reference range : 10*3/?L. The reference range was not used to interpret this result as normal/abnormal . GRAN MAT (NEUT) % 65.1 % (test code = 770-8) IMM GRAN % (test code 0.30 % = 7212511724) LYMPH % (test code = 22.5 % 736-9) MONO % (test code = 8.2 % 5905-5) EOS % (test code = 3.4 % 713-8) BASO % (test code = 0.5 % 706-2) GRAN MAT x10^3(ANC) 5.71 10*3/uL 1.88-7.09 (test code = 8782859164) IMM GRAN x10^3 (test 0.03 10*3/uL 0-0.06 code = 5158488347) LYMPH x10^3 (test code 1.97 10*3/uL 1.32-3.29 = 731-0) MONO x10^3 (test code 0.72 10*3/uL 0.33-0.92 = 742-7) EOS x10^3 (test code = 0.30 10*3/uL 0.03-0.39 711-2) BASO x10^3 (test code 0.04 10*3/uL 0.01-0.07 = 704-7) Lab Interpretation Abnormal (test code = 10724-0) NPI:[id number] 03:26:00 Test Item Value Reference Range Interpretation Comments POCT PREG (test code = 1605) Negative On board controls acceptable with Present C Line (test code = 3574) POCT PREG LOT # (test code = 3575) [id number] POCT PREG TEST DATE (test 01/18/2021 code = 3576) Lab Interpretation (test code = Normal 19398-8) NPI:[id number] GALL [id number] 02:48:50 Gallbladder hydrops and cholelithiasis without sonographic findings tosuggest acute cholecystitis. Preliminary Report Dictated by Resident: Cipriano Cardenas MD., [...] visualized portions of the pancreas are normal. [facility], Radiant Results Inft User - 11/15/2019 9:50 [...] reviewed this study and agree withthe above report.NPI:[id number] [id number] 01:18:00 Test Item Value Reference Range Interpretation Comments TROPONIN I (test <0.012 See_Comment [Automated code = 5820674346) message] The system which generated this result [...] ? Lab Interpretation Normal (test code = 43726-6) NPI:[id number]. METABOLIC PANEL (24438)2019-11-16 01:07:00 Test Item Value Reference Range Interpretation Comments NA (test code = 140 mmol/L 135-145 8028045762) K (test code = 4.2 mmol/L 3.5-5 4499672668) CL (test code = 101 mmol/L 98-108 8236454480) CO2 TOTAL (test code = 29 mmol/L 23-31 0073392125) AGAP (test code = 2-16 4283523164) BUN (test code = 11 mg/dL 7-23 2778333334) GLUCOSE (test code = 101 mg/dL 70-110 8126176703) CREATININE (test code 0.50 mg/dL 0.5-1.04 = 4352183924) TOTAL BILI (test code 0.1 mg/dL 0.1-1.1 = 6312506161) CALCIUM (test code = 9.4 mg/dL 8.6-10.6 4430543762) T PROTEIN (test code = 7.8 g/dL 6.3-8.2 8278256566) ALBUMIN (test code = 4.4 g/dL 3.5-5 9653726479) ALK PHOS (test code = 88 U/L 34-122 4170898376) ALTv (test code = 25 U/L 5-35 1742-6) AST(SGOT) (test code = 25 U/L 13-40 7315614033) eGFR Calculation mL/min/1.73m2 (Non-) (test code = 2485371645) eGFR Calculation mL/min/1.73m2 () (test code = 8308164872) MARCELINO (test code = MARCELINO) Association of [...] or urine or abnormalities in imaging tests). NPI:[id number], [id number] 01:07:00 Test Item Value Reference Range Interpretation Comments LIPASE (test code = 9327318168) 109 U/L 0-220 Lab Interpretation (test code = Normal 75823-5) NPI:[id number] TIME / [id number] 01:07:00 Test Item Value Reference Range Interpretation Comments PROTIME PATIENT (test See_Comment L [Auto mated message] code = 5964-2) The system [employer] generated this result transmitted ref erence range: 12.0 - 1 4.7 Seconds. The reference range was not used to int erpret this result as normal/abnormal . INR (test code = 6301-6) Nor mal INR <1.1; Warfarin Therap eutic range 2.0 to 3. 0 or 2.5 to 3.5, dep ending upon the indica tions. Lab Interpretation (test Abnormal code = 99390-7) NPI:[id number] 01:05:00 Test Item Value Reference Range Interpretation Comments APTT Patient (test See_Comment [Automat ed code = 3173-2) message] The system which generated this result transmitted reference range : 23 - 38 Seconds . The reference range was not used to interpr et this result as normal/abnormal . MARCELINO (test code = MARCELINO) The [facility] patient population mean normal value for aPTT is 30 seconds. Lab Interpretation Normal (test code = 37045-0) NPI:[id number] WITH [id number] 00:48:00 Test Item Value Reference Range Interpretation Comments WBC (test code = See_Comment [Automated 4590-2) message] The sy stem which generated this result transmitted reference range : 4.30 - 11.10 10*3/?L. The reference range was not used to interpret this result as normal/abnormal . RBC (test code = See_Comment [Automated 719-8) message] The sy stem which generated this [...] RDW-SD (test code = 43.6 fL 39-49.9 70597-5) RDW-CV (test code = 13.1 % 12-15.5 788-0) PLT (test code = See_Comment H [Automated 937-3) message] The sy stem which generated this result transmitted reference range : 166 - 358 10*3/ ?L. The reference r renee was not used to interpret this result as normal/abnormal . MPV (test code = 10.4 fL 9.5-12.9 22268-0) NRBC/100 WBC (test See_Comment [Automat ed code = 9161708078) message] The system which generated this result transmitted reference range : 0.0 - 10.0 /100 WBCs. The refer ence range was not u sed to interpret th is result as normal/abnormal . NRBC x10^3 (test code <0.01 See_Comment [Auto mated = 3389719916) message] The s ystem which generated this result transmitted reference range : 10*3/?L. The reference range was not used to interpret this result as normal/abnormal . GRAN MAT (NEUT) % 62.6 % (test code = 770-8) IMM GRAN % (test code 0.60 % = 2343561898) LYMPH % (test code = 24.0 % 736-9) MONO % (test code = 8.1 % 5905-5) EOS % (test code = 4.1 % 713-8) BASO % (test code = 0.6 % 706-2) GRAN MAT x10^3(ANC) 4.86 10*3/uL 1.88-7.09 (test code = 2298637342) IMM GRAN x10^3 (test 0.05 10*3/uL 0-0.06 code = 4212030853) LYMPH x10^3 (test code 1.87 10*3/uL 1.32-3.29 = 731-0) MONO x10^3 (test code 0.63 10*3/uL 0.33-0.92 = 742-7) EOS x10^3 (test code = 0.32 10*3/uL 0.03-0.39 711-2) BASO x10^3 (test code 0.05 10*3/uL 0.01-0.07 = 704-7) Lab Interpretation Abnormal (test code = 60555-5) NPI:[id number] [id number] 11:05:00 Test Item Value Reference Range Interpretation Comments TROPONIN I (test <0.012 See_Comment [Automated code = 7841011120) message] The system which generated this result [...] ? Lab Interpretation Normal (test code = 60359-9) NPI:[id number] COVID-19 [id number] 11:04:00 Test Item Value Reference Range Interpretation Comments SARS-CoV-2 (test code = Not Detected Not Detected 83848-9) MARCELINO (test code = MARCELINO) ID NOW COVID-19 Assay is an isothermal nucleic acid amplification test intended for the qualitative detection of nucleic acid from SARS-CoV-2 viral RNA in nasopharyngeal (BOOM 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) specimens. It is used under Emergency Use [...] indicated. Lab Interpretation Normal (test code = 63035-3) NPI:[id number] WITH [id number] 10:59:00 Test Item Value Reference Range Interpretation [...] RDW-SD (test code = 44.3 fL 39-49.9 99638-4) RDW-CV (test code = 13.2 % 12-15.5 788-0) PLT (test code = See_Comment [Automated 777-3) message] The sy stem which generated this result transmitted reference range : 166 - 358 10*3/ ?L. The reference r renee was not used to interpret this result as normal/abnormal . MPV (test code = 10.6 fL 9.5-12.9 73773-9) NRBC/100 WBC (test See_Comment [Automat ed code = 6175851242) message] The system which generated this result transmitted reference range : 0.0 - 10.0 /100 WBCs. The refer ence range was not u sed to interpret th is result as normal/abnormal . NRBC x10^3 (test code <0.01 See_Comment [Auto mated = 0342483278) message] The s ystem which generated this result transmitted reference range : 10*3/?L. The reference range was not used to interpret this result as normal/abnormal . GRAN MAT (NEUT) % 68.9 % (test code = 770-8) IMM GRAN % (test code 0.30 % = 6498815004) LYMPH % (test code = 21.3 % 736-9) MONO % (test code = 6.4 % 5905-5) EOS % (test code = 2.5 % 713-8) BASO % (test code = 0.6 % 706-2) GRAN MAT x10^3(ANC) 6.96 10*3/uL 1.88-7.09 (test code = 0556417753) IMM GRAN x10^3 (test 0.03 10*3/uL 0-0.06 code = 8606878867) LYMPH x10^3 (test code 2.15 10*3/uL 1.32-3.29 = 731-0) MONO x10^3 (test code 0.65 10*3/uL 0.33-0.92 = 742-7) EOS x10^3 (test code = 0.25 10*3/uL 0.03-0.39 711-2) BASO x10^3 (test code 0.06 10*3/uL 0.01-0.07 = 704-7) Lab Interpretation Abnormal (test code = 94758-4) NPI:[id number] 10:58:00 Test Item Value Reference Range Interpretation Comments APPEARANCE (test code = Hazy Clear A 5475019853) COLOR (test code = Yellow Yellow 2243397272) PH (test code = 4.8-8.0 6667767171) SP GRAVITY (test code = 1.003-1.030 7242860645) GLU U QUAL (test code = Normal Normal 0990870700) BLOOD (test code = Negative Negative 2126597036) KETONES (test code = Negative Negative 8685055253) PROTEIN (test code = Negative Negative 2887-8) UROBILIN (test code = Normal Normal 1920892018) BILIRUBIN (test code = Negative Negative 9890371053) NITRITE (test code = Negative Negative 6410482800) LEUK GABBY (test code = Negative Negative 6543231422) RBC/HPF (test code = See_Comment H [Autom ated message] 5297556281) The system [employer] generated this result transmitted ref erence range: 0 - 3 HP F. The reference range was not used to int erpret this result as normal/abnormal . WBC/HPF (test code = See_Comment [Autom ated message] 5295515596) The system [employer] generated this result transmitted ref erence range: 0 - 5 HP F. The reference range was not used to int erpret this result as normal/abnormal . BACTERIA (test code = Negative Negative 6260633381) MUCOUS (test code = Moderate Negative LPF A 5415714389) SQ EPITH (test code = HPF 0435927588) YEAST BUD (test code = <1 See_Comment [Aut omated message] 9086994483) The system [employer] generated this result transmitted ref erence range: <=1 HPF. The reference range was not used to int erpret this result as normal/abnormal . Lab Interpretation (test Abnormal code = 93896-4) NPI:[id number]. METABOLIC PANEL (27394)2019-10-19 10:54:00 Test Item Value Reference Range Interpretation Comments NA (test code = 139 mmol/L 135-145 8297487138) K (test code = 3.8 mmol/L 3.5-5 9846843497) CL (test code = 103 mmol/L 98-108 9654249986) CO2 TOTAL (test code = 30 mmol/L 23-31 2438215505) AGAP (test code = 2-16 2173617173) BUN (test code = 14 mg/dL 7-23 4786199786) GLUCOSE (test code = 101 mg/dL 70-110 0555437282) CREATININE (test code 0.59 mg/dL 0.5-1.04 = 1310491615) TOTAL BILI (test code 0.2 mg/dL 0.1-1.1 = 4948095015) CALCIUM (test code = 9.7 mg/dL 8.6-10.6 6029044275) T PROTEIN (test code = 7.7 g/dL 6.3-8.2 9112094603) ALBUMIN (test code = 4.4 g/dL 3.5-5 4770539008) ALK PHOS (test code = 97 U/L 34-122 6216806040) ALTv (test code = 18 U/L 5-35 1742-6) AST(SGOT) (test code = 23 U/L 13-40 9052171026) eGFR Calculation mL/min/1.73m2 (Non-) (test code = 3678760171) eGFR Calculation mL/min/1.73m2 () (test code = 6935299101) MARCELINO (test code = MARCELINO) Association of [...] or urine or abnormalities in imaging tests). NPI:[id number] 10:53:00 Test Item Value Reference Range Interpretation Comments LIPASE (test code = 4070363711) 115 U/L 0-220 Lab Interpretation (test code = Normal 96089-6) NPI:[id number] 10:18:00 Test Item Value Reference Range Interpretation Comments POCT PREG (test code = 1605) Negative On board controls acceptable Present with C Line (test code = 3574) POCT PREG LOT # (test code = HCGF [id number]) POCT PREG TEST DATE (test 01/18/2021 code = 3576) Lab Interpretation (test code = Normal 74655-8) NPI:[id number] CHEST 1 [id number] 09:37:51Impression: No radiographic evidence for acute cardiopulmonary disease. RL: 460 AFC: [id number] Indication: Cough Comparison: None available Findings: Single AP view of the chest. The cardiopericardial silhouette iswithin normal limits. The lungs are clear bilaterally. The visualized bonythorax is intact. [facility], Radiant Results Inft Us er - 08/31/2019 4:39 AM CDTIndication: CoughComparison: None availableFindings: Single AP view of the chest. The cardiopericardial silhouette iswithin normal limits. The lungs are clear bilaterally. The visualized bonythorax is intact.IMPRESSIONImpression:No radiographic evidence for acute cardiopulmonary disease.RL: 460AFC: [id number] signed by Ashley De Leon MD, PhD at 08/31/2019 4:37 AMNPI:[id number],CLC OR [facility] ONLY - INFLUENZA A & B DIRECT [id number] 09:37:00 Test Item Value Reference Range Interpretation Comments Influenza A (test code = 23263-3) Negative Negative Influenza B (test code = 00770-9) Negative Negative Lab Interpretation (test code = Normal 50018-6) NPI:[id number] STREP SCREEN FOR GROUP [id number] 09:29:00 Test Item Value Reference Range Interpretation Comments Streptococcus pyogenes (group A) Negative Negative antigen (test code = 38620-4) Lab Interpretation (test code = Normal 93953-7) NPI:[id number] INJURY TREATMENT - UPPER [id number] 19:59:18 Manan Arce III, PA? 01/29/2019?4:56 PMORTHOPEDIC INJURY TREATMENT - [...] method:?NoneProcedure details: ?Manipulation performed: no?Immobilization:?Splint?Splint type:?Sugar tong?Supplies used:?Xygnw-OayxbSctt-qclaphjlc assessment: ?Neurological function: normal?Distal perfusion: normal?Range of motion: unchanged?Patient tolerance of procedure:?Tolerated well, no immediate complicationsNPI:[id number]"
[2021-10-26] MEDS ORDERED: HYDROCODONE/APAP 5/325 MG TAB ONE (06:20)
[2021-10-26] MEDS ORDERED: NEOMY/POLY/HC 1% OTIC DROPS ONE ×2 (06:20→06:23)
--- NOTE | 2021-10-26 06:26 | EDPHYS ---
Physician Documentation [facility] Name: Elba Wells Age: 26 yrs Sex: Female : 1995 Arrival Date: 10/26/2021 Time: 06:01 Bed Waiting Private MD: ED Physician Ismael Tee HPI: 10/26 06:08 This 26 yrs old Female presents to ER via Ambulatory with complaints of Ear mh7 Pain - Left. 06:08 The patient presents with pain, moderate. The complaints affect the left ear. Onset: mh7 The symptoms/episode began/occurred 2 day(s) ago. Modifying factors: The symptoms are alleviated by nothing, the symptoms are aggravated by nothing. Associated signs and symptoms: Pertinent negatives: cough, fever, lightheadedness, nausea, rhinorrhea, sinus trouble, shortness of breath, sore throat, tinnitus, vertigo, vomiting. Severity of symptoms: At their worst the symptoms were moderate yesterday, in the emergency department the symptoms are unchanged. 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 - Social history:: Smoking status: Patient denies any tobacco usage or history of. ROS: 06:08 Constitutional: Negative for fever, chills, and weight loss, Eyes: Negative for injury, mh7 pain, redness, and discharge, Neck: Negative for injury, pain, and swelling, Cardiovascular: Negative for chest pain, palpitations, and edema, Respiratory: Negative for shortness of breath, cough, wheezing, and pleuritic chest pain, Abdomen/GI: Negative for abdominal pain, nausea, vomiting, diarrhea, and constipation, Back: Negative for injury and pain, : Negative for injury, bleeding, discharge, and swelling, MS/Extremity: Negative for injury and deformity, Skin: Negative for injury, rash, and discoloration, Neuro: Negative for headache, weakness, numbness, tingling, and seizure, Psych: Negative for depression, anxiety, suicide ideation, homicidal ideation, and hallucinations, Allergy/Immunology: Negative for hives, rash, and allergies, Endocrine: Negative for neck swelling, polydipsia, polyuria, polyphagia, and marked weight changes, Hematologic/Lymphatic: Negative for swollen nodes, abnormal bleeding, and unusual bruising. Exam: 06:08 Head/Face: Normocephalic, atraumatic. Eyes: Pupils equal round and reactive to light, mh7 extra-ocular motions intact. Lids and lashes normal. Conjunctiva and sclera are non-icteric and not injected. Cornea within normal limits. Periorbital areas with no swelling, redness, or edema. 06:08 Neck: Trachea midline, no thyromegaly or masses palpated, and no cervical lymphadenopathy. Supple, full range of motion without nuchal rigidity, or vertebral point tenderness. No Meningismus. Chest/axilla: Normal chest wall appearance and motion. Nontender with no deformity. No lesions are appreciated. Cardiovascular: Regular rate and rhythm with a normal S1 and S2. No gallops, murmurs, or rubs. Normal PMI, no JVD. No pulse deficits. Respiratory: Lungs have equal breath sounds bilaterally, clear to auscultation and percussion. No rales, rhonchi or wheezes noted. No increased work of breathing, no retractions or nasal flaring. Abdomen/GI: Soft, non-tender, with normal bowel sounds. No distension or tympany. No guarding or rebound. No evidence of tenderness throughout. Back: No spinal tenderness. No costovertebral tenderness. Full range of motion. Skin: Warm, dry with normal turgor. Normal color with no rashes, no lesions, and no evidence of cellulitis. MS/ Extremity: Pulses equal, no cyanosis. Neurovascular intact. Full, normal range of motion. Neuro: Awake and alert, GCS 15, oriented to person, place, time, and situation. Cranial nerves II-XII grossly intact. Motor strength 5/5 in all extremities. Sensory grossly intact. Cerebellar exam normal. Normal gait. Psych: Awake, alert, with orientation to person, place and time. Behavior, mood, and affect are within normal limits. 06:08 Constitutional: The patient appears in no acute distress, alert, awake, uncomfortable. 06:08 ENT: External ear(s): are unremarkable, Ear canal(s): purulent discharge, that is moderate, in the left canal, swelling, that is moderate, of the left canal, TM's: are normal, Nose: is normal, Mouth: is normal, Posterior pharynx: is normal, Dental exam: normal, Voice: is normal. Vital Signs: 06:04 BP 123 / 77; Pulse 77; Resp 16 S; Temp 98.1(O); Pulse Ox 100% on R/A; Weight 102.06 kg bb (R); Height 5 ft. 7 in. (170.18 cm) (R); Pain 8/10; 06:04 Body Mass Index 35.24 (102.06 kg, 170.18 cm) bb MDM: 06:23 Differential diagnosis: otitis media, otitis externa, ruptured TM, foreign body, acute mh7 otalgia, cerumen impaction, barotrauma , serotympanum. Data reviewed: vital signs, nurses notes. Data interpreted: Pulse oximetry: on room air is 100 %. Interpretation: normal. Counseling: I had a detailed discussion with the patient and/or guardian regarding: the historical points, exam findings, and any diagnostic results supporting the discharge/admit diagnosis, the need for outpatient follow up, to return to the emergency department if symptoms worsen or persist or if there are any questions or concerns that arise at home. 06:26 Patient medically screened. [facility] Administered Medications: 06:19 Drug: HYDROcodone-acetaminophen 5 mg-325 mg 1 tabs {Note: RASS 0.} Route: PO; bb 06:30 Follow up: Response: No adverse reaction bb 06:31 Follow up: Response: RASS: Alert and Calm (0) bb 06:19 Drug: Cortisporin (neomycin-polymyxin) Drops 4 drops Route: Otic; Site: left ear; bb 06:31 Follow up: Response: No adverse reaction Disposition Summary: 10/26/21 06:26 Discharge Ordered Location: Home [facility] Problem: new [facility] Symptoms: have improved mh Condition: Stable [facility] Diagnosis - Unspecified otitis externa, left ear mh7 Followup: [facility] - With: Private Physician - When: 1 - 2 days - Reason: Worsening of condition, Recheck today's complaints, Continuance of care, Re-evaluation by your physician Followup: mh7 - With: Ángela Mittal MD - When: 2 - 3 days - Reason: Worsening of condition, Recheck today's complaints Discharge Instructions: - Discharge Summary Sheet [facility] - Otitis Externa, [id number] [facility] Forms: - Medication Reconciliation Form [facility] - Thank You Letter [facility] - Antibiotic Education [facility] - Prescription Opioid Use [facility] Prescriptions: - Amoxicillin 500 mg Oral Capsule - take 1 capsule by ORAL route every 8 hours for 10 days; 30 tablet; Refills: 0, [facility] Product Selection Permitted - Cortisporin-TC 3.3-3-10-0.5 mg/mL Otic Suspension - instill 4 drops by OTIC route every 6 hours; 1 bottle; Refills: 0, Product [facility] Selection Permitted - Tramadol 50 mg Oral Tablet - take 1 tablet by ORAL route every 8 hours as needed; 12 tablet; Refills: 0, [facility] Product Selection Permitted Signatures: Tawana Berg RN RN bb Holmes, Maurice, MD MD [facility] Corrections: (The following items were deleted from the chart) 06:08 06:07 PMHx: D\T\C; hilario rich
--- NOTE | 2021-10-26 06:26 | ER ---
Nurse's Notes [facility] Name: Elba Wells Age: 26 yrs Sex: Female : 1995 Arrival Date: 10/26/2021 Time: 06:01 Bed Waiting Private MD: Diagnosis: Unspecified otitis externa, left ear Presentation: 10/26 06:04 Chief complaint: Patient states: she has had left ear pain x 2 days which is getting bb worse, denies sore throat, nausea or vomiting has taken tylenol and ibuprofen with no relief. Coronavirus screen: At this time, the client does not indicate any symptoms associated with coronavirus-19. Ebola Screen: No symptoms or risks identified at this time. Initial Sepsis Screen: Does the patient meet any 2 criteria? No. Patient's initial sepsis screen is negative. Does the patient have a suspected source of infection? No. Patient's initial sepsis screen is negative. Risk Assessment: Do you want to hurt yourself or someone else? Patient reports no desire to harm self or others. Onset of symptoms was October 23, 2021. 06:04 Method Of Arrival: Ambulatory bb 06:04 Acuity: CED 5 bb Triage Assessment: 06:07 General: Appears in no apparent distress. uncomfortable, Behavior is cooperative, bb anxious. Pain: Complains of pain in left ear Pain currently is 8 out of 10 on a pain scale. EENT: Reports pain in left ear. Neuro: Level of Consciousness is awake, alert, obeys commands, Oriented to person, place, time, situation. Cardiovascular: Capillary refill < 3 seconds Patient's skin is warm and dry. Respiratory: Respiratory effort is even, unlabored, Respiratory pattern is regular. GI: No signs and/or symptoms were reported involving the gastrointestinal system. Derm: Skin is pink, warm \T\ dry. Musculoskeletal: Circulation, motion, and sensation intact. 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 - Social history:: Smoking status: Patient denies any tobacco usage or history of. Screenin:09 Abuse screen: Denies threats or abuse. Nutritional screening: No deficits noted. bb Tuberculosis screening: No symptoms or risk factors identified. Fall Risk None identified. Assessment: 06:09 Reassessment: Patient is alert, oriented x 3, equal unlabored respirations, skin bb warm/dry/pink. see triage assessment. 06:31 Reassessment: Patient is alert, oriented x 3, equal unlabored respirations, skin bb warm/dry/pink. pt verbalized understanding of and agrees to plan of care discharge instructions given pt ambulated with steady gait to exit accompanied by family. Vital Signs: 06:04 BP 123 / 77; Pulse 77; Resp 16 S; Temp 98.1(O); Pulse Ox 100% on R/A; Weight 102.06 kg bb (R); Height 5 ft. 7 in. (170.18 cm) (R); Pain 8/10; 06:04 Body Mass Index 35.24 (102.06 kg, 170.18 cm) bb ED Course: 06:01 Patient arrived in ED. kz 06:07 Triage completed. bb 06:07 Arm band placed on Dr Tee with pt in triage for evaluation. bb 06:08 Ismael Tee MD is Attending Physician. 7 06:09 Patient has correct armband on for positive identification. bb 06:25 Ángela Mittal MD is Referral Physician. [facility] 06:32 No provider procedures requiring assistance completed. Patient did not have IV access bb during this emergency room visit. Administered Medications: 06:19 Drug: HYDROcodone-acetaminophen 5 mg-325 mg 1 tabs {Note: RASS 0.} Route: PO; bb 06:30 Follow up: Response: No adverse reaction bb 06:31 Follow up: Response: RASS: Alert and Calm (0) bb 06:19 Drug: Cortisporin (neomycin-polymyxin) Drops 4 drops Route: Otic; Site: left ear; bb 06:31 Follow up: Response: No adverse reaction bb Outcome: 06:26 Discharge ordered by . 7 06:32 Discharged to home ambulatory, with family. bb 06:32 Condition: stable 06:32 Discharge instructions given to patient, Instructed on discharge instructions, follow up and referral plans. medication usage, Demonstrated understanding of instructions, follow-up care, medications, Prescriptions given X 3. 06:32 Patient left the ED. bb Signatures: Tawana Berg RN RN Ismael Perez MD MD mh7 Kamila Verma Corrections: (The following items were deleted from the chart) 06:08 06:07 PMHx: D\T\C; hilario rich
[2021-10-26 06:44] VITALS: BP 123/77; TEMP 98.1; O2SAT 100
== END 2021-10-26 06:32 | disposition home or self-care (01) ==
LOC: ER 05:58
DX: H60.92 Unspecified otitis externa, left ear (principal); Z91.041 Radiographic dye allergy status
CPT/HCPCS: 99283

== ENCOUNTER 2022-01-06 02:50 | Inpatient (IN) | payer SELFPAY ==
[2022-01-06 03:43] LABS: Absolute Lymphocytes (CBC) 2.4 K/uL (0.7-4.9); Hematocrit 36.8 % (36.0-45.0); Lymphocytes % 27.7 % (15.3-44.8); MCV 84.2 fL (80-100); MPV 8.3 fL (7.6-11.3); RBC Red Blood Cell Count 4.38 M/uL (3.86-4.86)
[2022-01-06] MEDS ORDERED: MORPHINE 4 MG/ML SYR ONE (03:50)
[2022-01-06] MEDS ORDERED: ONDANSETRON 4 MG/2 ML VIAL ONE ×3 (03:50→15:35)
[2022-01-06 03:55] LABS: Urine Blood 3+ (Negative); Urine Glucose Negative (Negative); Urine Protein Trace (Negative); Urine pH 6.5 (5.0-7.0)
[2022-01-06 03:57] LABS: Albumin 3.4 g/dL (3.4-5.0); Bilirubin Total 0.1 mg/dL (0.2-1.0); Potassium 3.8 mmol/L (3.5-5.1); Protein, Total 7.8 g/dL (6.4-8.2)
[2022-01-06] MEDS ORDERED: NA CHLORIDE 0.9% 1,000 ML ONE (05:40)
--- NOTE | 2022-01-06 05:42 | EDPHYS ---
Physician Documentation [facility] Name: Elba Wells Age: 26 yrs Sex: Female : 1995 Arrival Date: 01/06/2022 Time: 02:53 Bed 14 Private MD: ED Physician Liborio Murillo HPI: 01/06 03:26 This 26 yrs old Female presents to ER via Ambulatory with complaints of RUQ rn abd pain. 03:26 The patient presents with abdominal pain in the right upper quadrant. Onset: The rn symptoms/episode began/occurred 2 day(s) ago. The symptoms do not radiate. Associated signs and symptoms: Pertinent positives: nausea, Pertinent negatives: blood in stools, chest pain, fever. The symptoms are described as sharp, stabbing. Modifying factors: The symptoms are alleviated by nothing, the symptoms are aggravated by touching the area. Severity of pain: At its worst the pain was moderate in the emergency department the pain is unchanged. The patient has experienced similar episodes in the past, multiple times. The patient has not recently seen a physician. Pt reports has gallstones, has caused several identical attacks in past, but this one lasting longer, present for more than 24 hours, assoc with nausea. No fever. . 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 - Social history:: Smoking status: Patient denies any tobacco usage or history of. - Family history:: not pertinent. - Hospitalizations: : No recent hospitalization is reported. ROS: 03:26 Constitutional: Negative for fever, chills, and weight loss, Eyes: Negative for injury, rn pain, redness, and discharge, Neck: Negative for injury, pain, and swelling, Cardiovascular: Negative for chest pain, palpitations, and edema, Respiratory: Negative for shortness of breath, cough, wheezing, and pleuritic chest pain, Abdomen/GI: + RUQ abd pain and nausea Back: Negative for injury : Negative for injury, bleeding, discharge, and swelling, MS/Extremity: Negative for injury and deformity, Skin: Negative for injury, rash, and discoloration, Neuro: Negative for headache, weakness, numbness, tingling, and seizure. Exam: 03:26 Constitutional: This is a well developed, well nourished patient who is awake, alert, rn appears uncomfortable Head/Face: Normocephalic, atraumatic. Cardiovascular: Regular rate and rhythm. No pulse deficits. Respiratory: No increased work of breathing, no retractions or nasal flaring. Abdomen/GI: soft, + tender RUQ, no masses Skin: Warm, dry MS/ Extremity: Pulses equal, no cyanosis. Neuro: Awake and alert, GCS 15 Vital Signs: 03:04 BP 104 / 92; Pulse 77; Resp 18 S; Temp 98.2; Pulse Ox 100% on R/A; Weight 93.44 kg (R); bb Height 5 ft. 7 in. (170.18 cm) (R); Pain 8/10; 04:09 BP 102 / 59; Pulse 68; Resp 19; Pulse Ox 98% on R/A; sm5 06:01 BP 95 / 60; Pulse 61; Resp 17; Pulse Ox 100% on R/A; sm5 06:32 BP 99 / 61; Pulse 61; Resp 17; Pulse Ox 100% on R/A; sm5 03:04 Body Mass Index 32.26 (93.44 kg, 170.18 cm) bb MDM: 02:54 Patient medically screened. rn 05:39 Differential diagnosis: cholecystitis, Cholelithiasis, gastritis, gastroesophageal rn reflux disease, non-specific abd pain, pancreatitis, Peptic Ulcer Disease. Data reviewed: vital signs, nurses notes, lab test result(s), radiologic studies, ultrasound, and as a result, I will admit patient. Counseling: I had a detailed discussion with the patient and/or guardian regarding: the historical points, exam findings, and any diagnostic results supporting the discharge/admit diagnosis, lab results, radiology results, the need for further work-up and treatment in the hospital. Response to treatment: There is no appreciated change of the patient's symptoms at this time, and as a result, I will admit patient. Admission orders: after a detailed discussion of the patient's condition and case, the admit orders are written by me. ED course: U/S shows possible stone in neck of gallbladder, normal LFTs and lipase, still having pain despite pain meds, will admit given length of constant pain atypical for her attacks and possible non-mobile stone in neck. Will admit to Dr. Horowitz for possible cholecystectomy. . 01/06 03:09 Order name: CBC with Diff; Complete Time: 03:59 rn 01/06 03:09 Order name: CMP; Complete Time: 03:59 rn 01/06 03:09 Order name: Lipase; Complete Time: 03:59 rn 01/06 03:32 Order name: SARS-COV-2 RT PCR (Document "Date of Onset" if Symptomatic); Complete Time: rn 05:06 01/06 03:55 Order name: Urine Dipstick-Ancillary; Complete Time: 03:59 EDMS 01/06 04:03 Order name: Urine --Ancillary (enter results); Complete Time: 05:06 wm 01/06 03:09 Order name: US Abdomen Limited rn 01/06 03:09 Order name: IV Saline Lock; Complete Time: 03:30 rn 01/06 03:09 Order name: Labs collected and sent; Complete Time: 03:30 rn 01/06 03:09 Order name: Urine Dipstick-Ancillary (obtain specimen); Complete Time: 04:06 rn 01/06 03:09 Order name: Urine Test (obtain specimen); Complete Time: 04:06 rn 01/06 05:39 Order name: NPO; Complete Time: 05:52 rn Administered Medications: 03:49 Drug: Zofran (Ondansetron) 4 mg Route: IVP; Site: left antecubital; sm5 06:04 Follow up: Response: No adverse reaction sm5 03:49 Drug: morphine 4 mg Route: IVP; Infused Over: 4 mins; Site: left antecubital; sm5 06:03 Follow up: Response: No adverse reaction sm5 05:37 Drug: NS 0.9% 1000 ml Route: IV; Rate: 1 bolus; Site: left antecubital; sm5 06:51 Follow up: IV Status: Infusion continued upon admission sm5 06:30 Drug: Zosyn (piperacillin-tazobactam) 3.375 grams Route: IVPB; Infused Over: 60 mins; sm5 Site: right antecubital; 06:51 Follow up: IV Status: Infusion continued upon admission 5 Disposition Summary: 01/06/22 05:41 Hospitalization Ordered Hospitalization Status: Observation rn Provider: Lencho Horowitz rn Condition: Stable rn Problem: new rn Symptoms: are unchanged rn Bed/Room Type: Standard rn Location: [facility](01/06/22 05:52) Room Assignment: [facility]-(01/06/22 05:53) mw Diagnosis - Other cholelithiasis without obstruction rn - Upper abdominal pain, unspecified rn Forms: - Medication Reconciliation Form rn - SBAR form rn Signatures: Dispatcher [employer] EDMallory Trejo RN RN mw Ballard, Brenda RN Liborio aCrmen MD MD rn Mazur, Sarah, RN RN 5 Corrections: (The following items were deleted from the chart) 05:49 05:41 Telemetry/MedSurg (observation) rn mw 05:49 05:41 rn mw 05:52 05:49 [facility] ER HOLD mw mw 05:52 05:49 ERHOLD- mw mw 05:53 05:52 273- mw mw
--- NOTE | 2022-01-06 05:42 | ER ---
Nurse's Notes [facility] Name: Elba Wells Age: 26 yrs Sex: Female : 1995 Arrival Date: 01/06/2022 Time: 02:53 Bed 14 Private MD: Diagnosis: Other cholelithiasis without obstruction;Upper abdominal pain, unspecified Presentation: 01/06 03:04 Chief complaint: Patient states: she is having right sided pain since Wednesday night with bb vomiting and diarrhea. Coronavirus screen: At this time, the client does not indicate any symptoms associated with coronavirus-19. Ebola Screen: No symptoms or risks identified at this time. Initial Sepsis Screen: Does the patient meet any 2 criteria? No. Patient's initial sepsis screen is negative. Does the patient have a suspected source of infection? Yes: Acute abdominal pain. Risk Assessment: Do you want to hurt yourself or someone else? Patient reports no desire to harm self or others. Onset of symptoms was January 05, 2022. 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 - Social history:: Smoking status: Patient denies any tobacco usage or history of. - Family history:: not pertinent. - Hospitalizations: : No recent hospitalization is reported. Screenin:27 Abuse screen: Denies threats or abuse. Denies injuries from another. Nutritional sm5 screening: No deficits noted. Tuberculosis screening: No symptoms or risk factors identified. Fall Risk None identified. Assessment: 03:30 General: Appears in no apparent distress. Behavior is cooperative. Pain: Complains of sm5 pain in abdomen. Neuro: Level of Consciousness is awake, alert, obeys commands, Oriented to person, place, time, situation. Cardiovascular: Capillary refill < 3 seconds Patient's skin is warm and dry. Respiratory: Airway is patent Trachea midline Respiratory effort is even, unlabored. GI: Abdomen is non-distended. 04:45 Reassessment: No changes from previously documented assessment. sm5 06:50 Reassessment: No changes from previously documented assessment. Patient and/or family 5 updated on plan of care and expected duration. Pain level reassessed. Vital Signs: 03:04 BP 104 / 92; Pulse 77; Resp 18 S; Temp 98.2; Pulse Ox 100% on R/A; Weight 93.44 kg (R); bb Height 5 ft. 7 in. (170.18 cm) (R); Pain 8/10; 04:09 BP 102 / 59; Pulse 68; Resp 19; Pulse Ox 98% on R/A; sm5 06:01 BP 95 / 60; Pulse 61; Resp 17; Pulse Ox 100% on R/A; sm5 06:32 BP 99 / 61; Pulse 61; Resp 17; Pulse Ox 100% on R/A; sm5 03:04 Body Mass Index 32.26 (93.44 kg, 170.18 cm) bb ED Course: 02:53 Patient arrived in ED. bp1 02:54 Liborio Murillo MD is Attending Physician. rn 03:06 Triage completed. bb 03:06 Arm band placed on Patient placed in an exam room, on a stretcher, on pulse oximetry. bb 03:27 Tawnya Be, RN is Primary Nurse. 5 03:27 Inserted saline lock: 20 gauge in left antecubital area, using aseptic technique. Blood 5 collected. 03:28 Patient has correct armband on for positive identification. Bed in low position. Call 5 light in reach. Side rails up X2. 03:30 CBC with Diff Sent. lg3 03:30 CMP Sent. lg3 03:30 Lipase Sent. lg3 03:46 US Abdomen Limited In Process Unspecified. EDMS 05:41 Lencho Horowitz MD is Hospitalizing Provider. rn 06:00 No provider procedures requiring assistance completed. Patient admitted, IV remains in sm5 place. 06:27 Inserted saline lock: 20 gauge in right antecubital area, using aseptic technique. bb Administered Medications: 03:49 Drug: Zofran (Ondansetron) 4 mg Route: IVP; Site: left antecubital; sm5 06:04 Follow up: Response: No adverse reaction [facility] 03:49 Drug: morphine 4 mg Route: IVP; Infused Over: 4 mins; Site: left antecubital; 5 06:03 Follow up: Response: No adverse reaction [facility] 05:37 Drug: NS 0.9% 1000 ml Route: IV; Rate: 1 bolus; Site: left antecubital; 5 06:51 Follow up: IV Status: Infusion continued upon admission [facility] 06:30 Drug: Zosyn (piperacillin-tazobactam) 3.375 grams Route: IVPB; Infused Over: 60 mins; 5 Site: right antecubital; 06:51 Follow up: IV Status: Infusion continued upon admission [facility] Medication: 05:59 VIS not applicable for this client. [facility] Outcome: 05:41 Decision to Hospitalize by Provider. rn 06:00 Admitted to L \T\ D, accompanied by tech, via wheelchair, with chart. [facility] 06:00 Condition: stable 06:00 Instructed on the need for admit. 06:52 Patient left the ED. [facility] Signatures: Dispatcher [employer] EDTawana Summers, RN RN Liborio Grimm MD MD rn Gibson, Lacie, RN RN lg3 Elham Mireles Sarah RN RN sm5
[2022-01-06] MEDS ORDERED: NA CHLORIDE 0.9% 100 ML ONE ×2 (05:55→05:58)
[2022-01-06] MEDS ORDERED: PIPERACIL/TAZO 3.375 GM VIAL IV ONE ×2 (05:55→05:58)
[2022-01-06] MEDS ORDERED: MORPHINE 4 MG/ML SYR IV PRN (07:28)
[2022-01-06] MEDS: ONDANSETRON 4 MG/2 ML VIAL IV PRN ×2 (07:39→17:57)
[2022-01-06] MEDS: D5 0.45 NS 1,000 ML IV SCH ×2 (07:42→23:51)
--- NOTE | 2022-01-06 07:46 | RAD REPORT ---
EXAM DESCRIPTION: US - Abdomen Exam Limited - 01/06/2022 3:44 am CLINICAL HISTORY: Abdominal pain. COMPARISON: September 2021 FINDINGS: 2.7 centimeter gallstone which may be impacted in the neck of the gallbladder. Gallbladder wall is not thickened. Small amount of gallbladder sludge The biliary tree is normal caliber. IMPRESSION: Cholelithiasis. The gallstone appears to be an impacted
[2022-01-06 08:07] VITALS: BMI 32.2
[2022-01-06] MEDS: MORPHINE 4 MG/ML SYR IV PRN (09:47)
[2022-01-06] MEDS ORDERED: Ringers Lactate 1,000 ML IV ONE (12:29)
[2022-01-06] MEDS ORDERED: BUPIVACAINE 0.5% Inj,MDV 50 mL VIAL ONE (12:47)
[2022-01-06] MEDS ORDERED: MIDAZOLAM HCL 2 MG/2 ML INJ ONE (13:23)
[2022-01-06] MEDS ORDERED: ROCURONIUM 50 MG/5 ML VIAL IV ONE (13:23)
[2022-01-06] MEDS ORDERED: LIDOCAINE 1% MPF 5 ML VIAL ONE (13:23)
[2022-01-06] MEDS ORDERED: FENTANYL CITR 100 MCG/2 ML ONE (13:23)
[2022-01-06] MEDS ORDERED: propofoL 200 MG/20 ML VIAL IV ONE (13:23)
[2022-01-06] MEDS ORDERED: KETOROLAC 30 MG/ML INJ ONE (13:45)
[2022-01-06] MEDS ORDERED: dexAMETHasone 10 MG/ML VIAL ONE (13:45)
[2022-01-06] MEDS ORDERED: BUPIVACAINE 0.5% Inj,MDV 50 mL VIAL IJ ONE ×2 (13:46→14:57)
[2022-01-06] MEDS ORDERED: GLYCOPYRROLATE 0.2 MG/ML SYR ONE ×2 (14:32→14:40)
[2022-01-06] MEDS: HYDROMORPHONE HCL 1 MG/ML INJ ONE ×4 (14:48→15:04)
--- NOTE | 2022-01-06 14:55 | P.HP ---
Date of Service: 01/06/22 PC: This 26-year-old female presented emergency room with severe right upper quadrant abdominal pain for diagnosis and treatment. HPC: Patient states she has had right upper quadrant abdominal pain since last . Is going straight through to her back. Right on the bra line between her shoulders. Pain she says is now unrelenting and she can no longer get relief. PSHx: 4, para 4. 4 prior C-sections. PMHx: Negative Social Hx: States she is allergic to iodine contrast Sys R: No cough, wheeze, shortness of breath. No chest pain or palpitations. Denies any urinary complaints O/E: Awake alert comfortable at the moment HEENT: Not jaundiced Chest: Air entry equal bilaterally Abd: Very tender in the right upper quadrant positive Lynn's [place]: Intact Data: Has documented gallstones Impression: Cholecystitis with cholelithiasis, biliary colic Plan: I will take her to the operating room for laparoscopic possible open cholecystectomy with a cholangiogram. The risks of this procedure have been discussed. The possibility of bleeding, infection, injury to bile ducts blood vessels and intestines has been described. The possible need for an open and or further surgeries and procedures was discussed. She understands and wants us to proceed.
--- NOTE | 2022-01-06 14:58 | P.OP ---
Preoperative diagnosis: Cholecystitis with cholelithiasis, biliary colic Postoperative diagnosis: The same Primary procedure: Laparoscopic cholecystectomy Secondary procedure: Cholangiogram Anesthesia: General Estimated blood loss: Less than 10 cc Specimen: 1 gallbladder and contents Operative Technique: The patient was brought the operating room and placed supine on the table. Aft er the induction of adequate general endotracheal anesthesia, there the abdomen was prepped with a DuraPrep solution, and she was draped in usual aseptic manner. After injecting with 1% lidocaine at the umbilicus, a skin incision was made. This was brought down through the skin and subcutaneous tissue. The Visiport was used to enter the peritoneal cavity and created pneumoperitoneum to approxim ately 10 mmHg. Under direct vision a 5 mm trocar was placed in the upper midline, and 2 other 5 mm trochars on the right lateral side of the abdomen. With the patient placed in reverse Trendelenburg and the table turned to the left we could visualize the right upper quadrant. We could see a markedly distended gallbladder that had shown signs of resolving edema. A grasper was placed on the fundus. Another down by Moreno's pouch. Applying lateral traction we were able to dissect and expose both the cystic duct and artery. Having obtained the critical view, a clip was placed between the gallbladder and the cystic duct. An opening was made into the cystic duct through which we obtained a normal intraoperative cholangiogram. The catheter was removed. Clips were placed on the distal portion of the cystic duct. The artery was then clipped and divided in the usual manner. The gallbladder was dissected free of the liver bed, placed into an Endo Catch, and brought out through the umbilical trocar site. We DC 1 little area of aberrance in the liver bed. This was controlled using a clips. The irrigating fluid was aspirated from the right upper quadrant. The liver bed was checked to ensure adequate hemostasis. At this point 2 sutures were used to approximate the umbilical trocar defect as the patient had some laxity in this area due to her prior pregnancies. This having been closed, the pneumoperitoneum was now collapsed, the trochars withdrawn, and denilson applied to the skin. At the end of the procedure she was stable and sent to the recovery room. Needle sponge instrument count were correct. No drains were placed. Complications: None Transferred to: Recovery Room Condition: Good
[2022-01-06 15:31] VITALS: O2SAT 99
[2022-01-06] MEDS: PIPER TAZO 3.375 GM in NA CHLORIDE 0.9% 100 ML IV SCH (17:01)
[2022-01-07] MEDS: PIPER TAZO 3.375 GM in NA CHLORIDE 0.9% 100 ML IV SCH ×2 (00:26→08:31)
[2022-01-07] MEDS: HYDROCODONE/APAP 7.5/325 MG TAB PO PRN ×2 (05:33→12:18)
[2022-01-07] MEDS: ONDANSETRON 4 MG/2 ML VIAL IV PRN (05:52)
[2022-01-07] MEDS: MORPHINE 4 MG/ML SYR IV PRN (08:51)
--- NOTE | 2022-01-07 11:39 | RAD REPORT ---
EXAM DESCRIPTION: RAD - Cholangiogram Oper-Xray Or - 01/07/2022 11:04 am CLINICAL HISTORY: LAP LULU WITH IOC COMPARISON: Abdomen Exam Limited dated 01/06/2022 FINDINGS: Cystic duct injection was performed by the operating surgeon. Common bile duct is normal c aliber. No filling defects seen. Total fluoro time: 0.1 minutes. Four fluoroscopic images submitted. IMPRESSION: No evidence of retained common duct stone.
[2022-01-07] MEDS: D5 0.45 NS 1,000 ML IV SCH (12:18)
[2022-01-07 12:35] VITALS: BP 115/62; TEMP 97.8
--- NOTE | 2022-01-07 15:13 | P.PN ---
Date of Service: 01/07/22 S: Patient was complaining of some periumbilical pain, but as our conversation went along, she appears to be in minimal distress. Oh: Vital signs are stable, incisions are clean, tolerated a diet A: Surgically stable P: Discharge home, patient will see me next week in my office. We have prescribed pain medicine for her. We discussed diet. Also discussed intraoperative findings of fatty liver. She understands and will follow-up with me next week in my office.
--- OUTSIDE RECORDS SUMMARY | 2022-01-08 13:43 | XMS REPORT | Continuity of Care Document ---
:1995 Author Organization [facility] t Address [address] [place] [address] Care Team Providers Name Role Phone Nahum Sheridan [facility], [facility] Primary Care P hysician Alena Sanders Attending Clinician Alannah Downey Attending Clinician Amelia Faust Attending Clinician Unavailable Penny WALL Attending Clinician Unavailable Faustino Marshall DO Attending Clinician Payers Payer Name Policy Type Policy Number Effective Date Expiration Date S ource Problems Condition Condition Condition Status Onset Resolution Last Treating Co mments Source Name Details Category Date Date Treatment Clinician Date Itching of Itching of Disease Active U nivers vagina vagina 5-24 ity of 00:00: [address] Dysuria Dysuria Disease Active Univers 5-24 ity of 00:00: [address] Class 2 Class 2 Disease Active Univers [...] for Disease Active Unive rs HPV HPV 06-27 [place] Stop Date Quantity Comments Source Exposure to 2021-12-20 2021-12-30 Not sure [facility] SARS-CoV-2 00:00:00 14:34:00 [facility] (event) Branch Tobacco use and 2021-12-30 2021-12-30 Smokeless tobacco Un iversity of exposure 00:00:00 00:00:00 non-user [facility] Branch Alcohol intake 2021-12-30 2021-12-30 Current drinker Unive rsity of 00:00:00 00:00:00 of alcohol [facility] (finding) Branch History SDOH 2020-06-27 2020-06-27 3 University o f Alcohol Frequency 00:00:00 00:00:00 [facility] History SDOH 2020-06-27 2020-06-27 99 University o f Alcohol Std 00:00:00 00:00:00 [facility] Drinks Branch History SDOH 2020-06-27 2020-06-27 99 [place] o f Alcohol Binge 00:00:00 00:00:00 [facility] Alcohol Comment 2020-06-27 2020-06-27 on occassion, Univer sity of 00:00:00 00:00:00 liquor and beer [facility] on occassions. Branch Sex Assigned At [birth year] Universit y of 00:00:00 00:00:00 [facility] Smoking Status Start Date Stop Date Source Never smoked tobacco [facility] Medications Ordered Filled Start Stop Current Ordering Indication Dosage Frequency Signature Comments Components Source Medication Medication Date Date Medication? Clinician (SIG) Name Name omeprazole 2021- No 10mg Take 10 mg Univers 10 mg 7-12 -12 by mouth ity of capsule 19:26: 00:00 daily. [place] 59 :00 [facility] omeprazole 2021- No 10mg Take 10 mg Univers 10 mg 7-12 -12 by mouth ity of capsule 19:26: 00:00 daily. [place] 59 :00 [facility] norelgestro 0 Yes [id number] 1{patch Apply 1 Univers min-ethinyl 7-12 } Patch to ity of estradiol 00:00: [facility] weekly. Medical 150-35 For 3 Branch mcg/24 hr weeks, patch followed by 1 week no ptach norelgestro 2021-0 Yes [id number] 1{patch Apply 1 Univers min-ethinyl 7-12 } Patch to ity of estradiol 00:00: [facility] weekly. Medical 150-35 For 3 Branch mcg/24 hr weeks, patch followed by 1 week no ptach norelgestro 2021-0 Yes [id number] 1{patch Apply 1 Univers min-ethinyl 7-12 } Patch to ity of estradiol 00:00: [facility] weekly. Medical 150-35 For 3 Branch mcg/24 hr weeks, patch followed by 1 week no ptach norelgestro 2021-0 Yes [id number] 1{patch Apply 1 Univers min-ethinyl 7-12 } Patch to ity of estradiol 00:00: [facility] weekly. Medical 150-35 For 3 Branch mcg/24 hr weeks, patch followed by 1 week no ptach terconazole 2021- No [id number] 1{appli Insert 1 Univers 0.8 % 11-13 cator} Applicator ity o f vaginal 00:00: 00:00 into [place] cream 00 :00 vagina at Medical bedtime. Branch terconazole 2021- No [id number] 1{appli Insert 1 Univers 0.8 % 11-13 cator} Applicator ity o f vaginal 00:00: 00:00 [facility] [place] cream 00 :00 vagina at Medical bedtime. Branch ibuprofen 2021- No [id number] 600mg Take 1 Univers 600 mg 03-17 [id number] tablet by ity o f tablet 00:00: 00:00 mouth [place] 00 :00 every 6 Medical (six) Branch hours as needed for Pain (scale 4-6). ibuprofen 2021- No [id number] 600mg Take 1 Univers 600 mg 03-17 [id number] tablet by ity o f tablet 00:00: 00:00 mouth [place] 00 :00 every 6 Medical (six) Branch hours as needed for Pain (scale 4-6). cetirizine Yes Take by Uni vers HCl (ZYRTEC 1-07 mouth. ity of ORAL) 15:45: [address] cetirizine Yes Take by Uni vers HCl (ZYRTEC 1-07 mouth. ity of ORAL) 15:45: [address] cetirizine Yes Take by Uni vers HCl (ZYRTEC 1-07 mouth. ity of ORAL) 15:45: [address] cetirizine Yes Take by Uni vers HCl (ZYRTEC 1-07 mouth. ity of ORAL) 15:45: [address] Immunizations Ordered Filled Immunization Date Status Comments Sour e Immunization Name Name HPV9 2020-06-27 Completed [facility] 00:00:00 [facility] HPV9 2020-06-27 Completed [facility] 00:00:00 [facility] HPV9 2020-06-27 Completed [facility] 00:00:00 [facility] HPV9 2020-06-27 Completed University of 00:00:00 [facility] TDAP 2017-12-21 Completed University of 00:00:00 [facility] TDAP 2017-12-21 Completed University of 00:00:00 [facility] TDAP 2017-12-21 Completed University of 00:00:00 [facility] TDAP 2017-12-21 Completed University of 00:00:00 [facility] TDAP 2016-07-09 Completed University of 00:00:00 [facility] TDAP 2016-07-09 Completed University of 00:00:00 [facility] TDAP 2016-07-09 Completed University of 00:00:00 [facility] TDAP 2016-07-09 Completed University of 00:00:00 [facility] Influenza Virus 2016-03-25 Completed Universit y of Vaccine Quad IM 3+ 00:00:00 [facility] Influenza Virus 2016-03-25 Completed Universit y of Vaccine Quad IM 3+ 00:00:00 [facility] Influenza Virus 2016-03-25 Completed Universit y of Vaccine Quad IM 3+ 00:00:00 [facility] Influenza Virus 2016-03-25 Completed Universit y of Vaccine Quad IM 3+ 00:00:00 [facility] Vital Signs Vital Name Observation Time Observation Value Comments Source Systolic blood 2021-12-30 19:35:00 109 mm[Hg] [facility] Diastolic blood 2021-12-30 19:35:00 70 mm[Hg] [facility] Heart rate 2021-12-30 19:35:00 69 /min [facility] Body temperature 2021-12-30 19:35:00 36.28 Sandhya [facility] rate 2021-12-30 19:35:00 16 /min [facility] Body height 2021-12-30 19:35:00 170.2 cm [facility] Body weight 2021-12-30 19:35:00 93.759 kg [facility] BMI 2021-12-30 19:35:00 32.37 kg/m2 [facility] Procedures Procedure Date / Time Performed Performing Clinician Sourc e POCT TEST 2021-12-30 19:55:00 Alena Wall [facility] Encounters Start End Encounter Admission Attending Care Care Encounter Source Date/Time Date/Time Type Type Clinicians Facility Department ID 2021-12-31 2021-12-31 Telephone Sydnie [facility] [id number] Univers 00:00:00 00:00:00 Alena Francis SPAGHETTI MACHINE OPERATOR [id number] i ty of [facility] [id number] Rodney as MATERNAL [id number] [facility] & CHILD [address] [place] [address] 2021-12-31 2021-12-31 Telephone Jonh [facility] [id number] Univers 00:00:00 00:00:00 Wilbert Jaffe SPAGHETTI MACHINE OPERATOR [id number] ity of [facility] [id number] Rodney as MATERNAL [id number] [facility] & [address] 2021-12-30 2021-12-30 Office Provider, Noah Cisneros [facility] [id number] [facility] 14:30:00 16:19:20 Visit Alena Wall SPAGHETTI MACHINE OPERATOR [id number] ity of [facility] [id number] Rodney as MATERNAL [phone] [facility] & [address] 2021-12-30 2021-12-30 Outpatient R ALENA WALL [facility] [id number] [facility] 14:30:00 16:19:20 ALENA WALL [facility] 2020-09-10 2020-09-10 Patient Rolando [facility] [id number] 00:00:00 00:00:00 Outreach [facility] [id number] [facility] [id number] [facility] [id number] 2020-06-27 2020-06-27 Office Jonh [facility] [id number] 15:21:42 16:19:38 Visit Wilbert Jaffe SPAGHETTI MACHINE OPERATOR [id number] [facility] [id number] MATERNAL [id number] & CHILD [address] [place] [address] Results Test Description Test Time Test Comments Results Result Comments Source POCT TEST 2021-12-30 19:55:00 Test Item Value Reference Range Interpretation Comme nts POCT PREG (test code = 1605) Negative On board controls acceptable with C Line (test code = 3574) Yes POCT PREG LOT # (test code = 3575) POCT PREG TEST DATE (test code = 3576) [id number] 19:55:00 Test Item Value Reference Range Interpretation Comments POCT PREG (test code = 1605) Negative On board controls acceptable with C Yes Line (test code = 3574) POCT PREG LOT # (test code = 3575) POCT PREG TEST DATE (test code = 3576) [facility]
== END 2022-01-07 15:15 | disposition home or self-care (01) | DRG 419 ==
LOC: ER 02:50 → ERHOLD 05:58 → 2ND-WC 06:04 → OBSVTOIN 14:17
PROVIDERS: ADMIT Surgery; ATTEND Surgery
PROC: BF00YZZ Plain Radiography of Bile Ducts using Other Contrast (ICD-10-PCS; 2022-01-06)
PROC: 0FT44ZZ Resection of Gallbladder, Percutaneous Endoscopic Approach (ICD-10-PCS; principal; 2022-01-06 13:00)
DX: K80.10 Calculus of gallbladder with chronic cholecystitis without obstruction (principal); J45.909 Unspecified asthma, uncomplicated; D64.9 Anemia, unspecified; Z91.041 Radiographic dye allergy status; Z28.310 Unvaccinated for COVID-19; Z20.822 Contact with and (suspected) exposure to COVID-19
CPT/HCPCS: 36415; 74300; 76705; 80053; 81003; 81025; 83690; 85025; 88304; 94010; 96361; 96365; 96375; 99285; G0378; J1100; J1170; J2250; J2405; J2543; J2704; J3010; J7030; J7120; J7799; U0003

== ENCOUNTER 2022-01-18 17:11 | Emergency (ER) | payer SELFPAY ==
[2022-01-18 18:04] LABS: Absolute Lymphocytes (CBC) 1.8 K/uL (0.7-4.9); Lymphocytes % 22.6 % (15.3-44.8); MCV 83.7 fL (80-100); MPV 8.3 fL (7.6-11.3); RBC Red Blood Cell Count 4.66 M/uL (3.86-4.86)
[2022-01-18 18:09] LABS: Potassium 3.8 mmol/L (3.5-5.1)
--- NOTE | 2022-01-18 18:43 | RAD REPORT ---
EXAM DESCRIPTION: US - UPPER EXTREMITY VENOUS UNILATE - 01/18/2022 6:32 pm CLINICAL HISTORY: Pain COMPARISON: None. TECHNIQUE: Real-time sonographic evaluation of the right upper extremity deep venous system was perf ormed. FINDINGS: Color Doppler, grayscale, and spectral analysis was performed. Occlusive thrombus is present in the right basilic vein. The axillary vein is patent as is the subcla vian vein and right internal jugular vein. The cephalic vein was not visualized. The radial and ulnar veins were compressible. IMPRESSION: Occlusive thrombus in the right basilic vein.
[2022-01-18] MEDS ORDERED: KETOROLAC 30 MG/ML INJ ONE (18:52)
--- NOTE | 2022-01-18 18:56 | EDPHYS ---
Physician Documentation [facility] Name: Elba Wells Age: 26 yrs Sex: Female : 1995 Arrival Date: 01/18/2022 Time: 17:14 Bed 17 Private MD: ED Physician Ángela Kebede HPI: 01/18 17:25 This 26 yrs old Female presents to ER via Ambulatory with complaints of Arm jh7 Pain. 17:25 The patient or guardian complains of pain, tenderness. The complaints affect the right jh7 bicep. Onset: The symptoms/episode began/occurred 1 week(s) ago. Patient presents with right arm pain for the past week. The patient states she had her gallbladder removed 1 week ago, and that she had an IV placed in her right arm. States that the pain is in her upper arm and will shoot up to her shoulder. No other complaints at this time.. Historical: - Allergies: 17:22 Iodinated Contrast Media - IV Dye; ll1 - PMHx: 17:22 Anemia; Asthma; ll1 - PSHx: 17:22 Adenoid excision; section; D\T\C; Tonsillectomy; Cholecystectomy; ll1 - Immunization history:: Client reports having NOT received the Covid vaccine. Flu vaccine status is unknown. - Social history:: Smoking status: Patient denies any tobacco usage or history of. ROS: 17:25 Constitutional: Negative for fever, chills, and weight loss, Neck: Negative for injury, jh7 pain, and swelling, Cardiovascular: Negative for chest pain, palpitations, and edema, Respiratory: Negative for shortness of breath, cough, wheezing, and pleuritic chest pain, Abdomen/GI: Negative for abdominal pain, nausea, vomiting, diarrhea, and constipation, Back: Negative for injury and pain, Skin: Negative for injury, rash, and discoloration, Neuro: Negative for headache, weakness, numbness, tingling, and seizure. 17:25 MS/extremity: Positive for pain, tenderness, Negative for injury or acute deformity, erythema. 17:25 All other systems are negative. Exam: 17:25 Constitutional: This is a well developed, well nourished patient who is awake, alert, jh7 and in no acute distress. Neck: Trachea midline, no thyromegaly or masses palpated, and no cervical lymphadenopathy. Supple, full range of motion without nuchal rigidity, or vertebral point tenderness. No Meningismus. Cardiovascular: Regular rate and rhythm with a normal S1 and S2. No gallops, murmurs, or rubs. Normal PMI, no JVD. No pulse deficits. Respiratory: Lungs have equal breath sounds bilaterally, clear to auscultation and percussion. No rales, rhonchi or wheezes noted. No increased work of breathing, no retractions or nasal flaring. Abdomen/GI: Soft, non-tender, with normal bowel sounds. No distension or tympany. No guarding or rebound. No evidence of tenderness throughout. Back: No spinal tenderness. No costovertebral tenderness. Full range of motion. Skin: Warm, dry with normal turgor. Normal color with no rashes, no lesions, and no evidence of cellulitis. Neuro: Awake and alert, GCS 15, oriented to person, place, time, and situation. Sensory grossly intact. Normal gait. 17:25 Musculoskeletal/extremity: ROM: limited active range of motion due to pain, in the right arm, Circulation is intact in all extremities. Sensation intact. Tenderness to palpation over the right bicep Vital Signs: 17:23 BP 114 / 81; Pulse 74; Resp 16; Temp 98.1; Pulse Ox 100% ; Weight 93.44 kg; Height 5 ll1 ft. 7 in. (170.18 cm); Pain 7/10; 17:23 Body Mass Index 32.26 (93.44 kg, 170.18 cm) ll1 MDM: 17:[address] [facility] 19:00 Differential diagnosis: DVT, SVT. Data reviewed: vital signs, nurses notes, lab test [facility] result(s), radiologic studies, ultrasound. Data interpreted: Pulse oximetry: is 100 %. Interpretation: normal. Counseling: I had a detailed discussion with the patient and/or guardian regarding: the historical points, exam findings, and any diagnostic results supporting the discharge/admit diagnosis, to return to the emergency department if symptoms worsen or persist or if there are any questions or concerns that arise at home, Advised NSAIDs, elevation, and warm compresses at home. If redness develops, pain increases, or any new symptoms develop, return to the ER for further eval.. 01/18 18:08 Order name: CBC with Automated Diff; Complete Time: 18:25 EDMS 01/18 18:10 Order name: Basic Metabolic Panel; Complete Time: 18:25 EDMS 01/18 18:44 Order name: US; Complete Time: 18:57 EDMS Administered Medications: 18:49 Drug: Ketorolac 30 mg Route: IVP; Site: left forearm; hb Disposition Summary: 01/18/22 18:56 Discharge Ordered Location: Home [facility] Problem: [facility] Symptoms: have improved [facility] Condition: Stable [facility] Diagnosis - Acute embolism and thrombosis of superficial veins of right upper extremity [facility] Followup: [facility] - With: Private Physician - When: 2 - 3 days - Reason: Recheck today's complaints Discharge Instructions: - Discharge Summary Sheet [facility] - Venous Thromboembolism Prevention [facility] - Thrombophlebitis [facility] Forms: - Medication Reconciliation Form [facility] - Thank You Letter [facility] Signatures: Dispatcher [employer] Jade Lee RN RN Christy Hernandez RN RN [facility] Abby Chatterjee FNP [employer]PER[employer]ENT [facility] Corrections: (The following items were deleted from the chart) 19:01 17:30 Extremity Venous [email or web address] ordered. EDMS EDMS
--- NOTE | 2022-01-18 18:56 | ER ---
Nurse's Notes [facility] Name: Elba Wells Age: 26 yrs Sex: Female : 1995 Arrival Date: 01/18/2022 Time: 17:14 Bed 17 Private MD: Diagnosis: Acute embolism and thrombosis of superficial veins of right upper extremity Presentation: 01/18 17:23 Chief complaint: Patient states: R arm pain and swelling for 1 week, worse today. Had ll1 gallbladder surgery 01/06. No fever. Coronavirus screen: Vaccine status: Patient reports being unvaccinated. Client denies travel out of the [place] in the last 14 days. At this time, the client does not indicate any symptoms associated with coronavirus-19. Ebola Screen: Patient denies travel to an Ebola-affected area in the 21 days before illness onset. Initial Sepsis Screen: Does the patient meet any 2 criteria? No. Patient's initial sepsis screen is negative. Does the patient have a suspected source of infection? Yes: Bone or joint infection. Risk Assessment: Do you want to hurt yourself or someone else? Patient reports no desire to harm self or others. Onset of symptoms was January 12, 2022. 17:23 Method Of Arrival: Ambulatory ll1 17:23 Acuity: CED 3 ll1 Triage Assessment: 17:25 General: Appears uncomfortable, Behavior is cooperative, appropriate for age. Pain: ll1 Complains of pain in right arm Quality of pain is described as aching. Musculoskeletal: Circulation, motion, and sensation intact. Capillary refill < 3 seconds, Reports pain in right arm. Historical: - Allergies: 17:22 Iodinated Contrast Media - IV Dye; ll1 - PMHx: 17:22 Anemia; Asthma; ll1 - PSHx: 17:22 Adenoid excision; section; D\T\C; Tonsillectomy; Cholecystectomy; ll1 - Immunization history:: Client reports having NOT received the Covid vaccine. Flu vaccine status is unknown. - Social history:: Smoking status: Patient denies any tobacco usage or history of. Screenin:50 Abuse screen: Denies threats or abuse. Denies injuries from another. Nutritional hb screening: No deficits noted. Tuberculosis screening: No symptoms or risk factors identified. Fall Risk None identified. Assessment: 17:50 General: Appears in no apparent distress. Behavior is calm, cooperative. Pain: Pain hb currently is 6 out of 10 on a pain scale. Neuro: Level of Consciousness is awake, alert, obeys commands, Oriented to person, place, time, situation. Cardiovascular: Patient's skin is warm and dry. Respiratory: Respiratory effort is even, unlabored, Respiratory pattern is regular, symmetrical. GI: No signs and/or symptoms were reported involving the gastrointestinal system. : No signs and/or symptoms were reported regarding the genitourinary system. EENT: No signs and/or symptoms were reported regarding the EENT system. Derm: No signs and/or symptoms reported regarding the dermatologic system. Musculoskeletal: mild swelling noted to RUE. Vital Signs: 17:23 BP 114 / 81; Pulse 74; Resp 16; Temp 98.1; Pulse Ox 100% ; Weight 93.44 kg; Height 5 ll1 ft. 7 in. (170.18 cm); Pain 7/10; 17:23 Body Mass Index 32.26 (93.44 kg, 170.18 cm) ll1 ED Course: 17:14 Patient arrived in ED. mr 17:17 Abby Chatterjee, [facility] 17:17 Ángela Kebede MD is Attending Physician. [facility] 17:23 Arm band placed on Patient placed in an exam room, on a stretcher. ll1 17:25 Triage completed. ll1 17:33 Jade Moraes, RN is Primary Nurse. hb 17:42 Inserted saline lock: 22 gauge in left forearm, using aseptic technique. Blood hb collected. 17:50 Patient has correct armband on for positive identification. hb 19:07 No provider procedures requiring assistance completed. IV discontinued, intact, hb bleeding controlled, No redness/swelling at site. Administered Medications: 18:49 Drug: Ketorolac 30 mg Route: IVP; Site: left forearm; hb Medication: 17:50 VIS not applicable for this client. hb Outcome: 18:56 Discharge ordered by . [facility] 19:07 Discharged to home ambulatory, with significant other. hb 19:07 Condition: stable 19:07 Discharge instructions given to patient, Instructed on discharge instructions, follow up and referral plans. Demonstrated understanding of instructions, medications. 19:08 Patient left the ED. hb Signatures: Turner, Jade Knight, RN RN hb Christy Hernandez, RN RN ll1 Sen, Abby, METAL CANS SUPERVISOR METAL CANS SUPERVISOR jh7
[2022-01-18 20:40] VITALS: BP 114/81; TEMP 98.1; O2SAT 100
== END 2022-01-18 19:08 | disposition home or self-care (01) ==
LOC: ER 17:11
DX: I82.611 Acute embolism and thrombosis of superficial veins of right upper extremity (principal); Z90.49 Acquired absence of other specified parts of digestive tract; Z91.041 Radiographic dye allergy status
CPT/HCPCS: 36415; 80048; 85025; 93971; 96374; 99283

== ENCOUNTER 2022-01-20 20:40 | Emergency (ER) | payer SELFPAY ==
--- OUTSIDE RECORDS SUMMARY | 2022-01-20 20:57 | XMS REPORT | Continuity of Care Document ---
:1995 Author Organization [facility] t Address [address] [place] [address] Care Team Providers Name Role Phone LAM Sheridan [facility], [facility] Primary Care P hysician Unavailable PETE PILLAI Attending Clinician Unavailable Doctor Unassigned, [place] Attending Clinician Unavailable INOCENCIO Attending Clinician Unavailable Juan Marshall DO Attending Clinician Wilbert Downey Attending Clinician INOCENCIO Admitting Clinician Unavailable Payers Payer Name Policy Type Policy Number Effective Date Expiration Date Puja bobo [id number] 2020 00:00:00 Problems Condition Condition Condition Status Onset Resolution Last Treating Co mments Source Name Details Category Date Date Treatment Clinician Date Itching of Itching of Disease Active U nivers vagina vagina 5-24 ity of 00:00: [address] Dysuria Dysuria Disease Active Univers 5-24 ity of 00:00: [address] Class 2 Class 2 Disease Active Univers obesity obesity 1-07 ity of with body with body 00:00: [place] mass index mass index 00 Me [...] Source Exposure to 2021-12-20 2021-12-30 Not sure [facility] SARS-CoV-2 00:00:00 14:34:00 [facility] Tobacco use and 2021-12-30 2021-12-30 Smokeless tobacco Un iversity of exposure 00:00:00 00:00:00 non-user [facility] Alcohol intake 2021-12-30 2021-12-30 Current drinker Unive rsity of 00:00:00 00:00:00 of alcohol [facility]finding[facility] History SDOH 2020-06-27 2020-06-27 3 University o f Alcohol Frequency 00:00:00 00:00:00 [facility] History SDOH 2020-06-27 2020-06-27 99 University o f Alcohol Std 00:00:00 00:00:00 [facility] Drinks Branch History SDOH 2020-06-27 2020-06-27 99 University o f Alcohol Binge 00:00:00 00:00:00 [facility] Alcohol Comment 2020-06-27 2020-06-27 on occassion, Univer sity of 00:00:00 00:00:00 liquor and beer [place] [facility] on occassions. Branch Sex Assigned At [birth year] Universit y of 00:00:00 00:00:[address] [facility] [place] [place] Smoking Status Start Date Stop Date Source Never smoked tobacco [facility] Medications Ordered Filled Start Stop Current Ordering Indication Dosage Frequency Signature Comments Components Source Medication Medication Date Date Medication? Clinician (SIG) Name Name norelgestro Yes [id number] 1{patch Apply 1 Univers min-ethinyl 7-12 } Patch to ity of estradiol 00:00: skin [place] (XULANE) 00 weekly. Medical 150-35 For 3 Branch mcg/24 hr weeks, patch followed by 1 week no ptach cetirizine Yes Take by [facility] ers HCl (ZYRTEC 1-07 mouth. ity of ORAL) 15:45: [address] Immunizations Ordered Filled Immunization Date Status Comments Sourc e Immunization Name Name HPV9 2020-06-27 Completed University 00:00:[address] [facility] [place] TDAP 2017-12-21 Completed [facility] 00:00:[address] [facility] [place] TDAP 2016-07-09 Completed [facility] 00:00:[address] [facility] [place] Influenza Virus 2016-03-25 [facility] 00[facility] Procedures This patient has no known procedures. Encounters Start End Encounter Admission Attending Care Care Encounter Source Date/Time Date/Time Type Type Clinicians Facility Department ID 2022-01-21 2022-01-21 Outpatient R FREYA, [facility] [id number] [facility] 13:15:00 13:15:00 PETE ity o f [facility] [place] [place] 2022-01-15 2022-01-15 Patient Doctor BRONWYN [id number] Univers 00:00:00 00:00:00 Secure Msg Unassigned, FAUSTO [id number] ity of [place] [facility] [id number] Rodney as [id number] [facility] 019 Branch 2022-01-14 2022-01-14 Outpatient GUY GONZALEZ CARLOS [address] [place] 00:00:00 00:00:00 [facility] 2020-09-10 2020-09-10 Patient MISHEL Marshall [id number] 00:00:00 00:00:00 Outreach [facility] [id number] [facility] [id number] PAVILLION [id number] 2020-06-27 2020-06-27 Office Jonh [facility] [id number] 15:21:42 16:19:38 Visit Wilbert Jaffe GAS PU[employer] [id number] [facility] [id number] MATERNAL [id number] & CHILD [address] [place] [address] Results This patient has no known results.
[2022-01-21 05:55] VITALS: BP 119/91; TEMP 97.4; O2SAT 100
--- NOTE | 2022-01-21 10:32 | EDPHYS ---
Physician Documentation [facility] Name: Elba Wells Age: 26 yrs Sex: Female : 1995 Arrival Date: 01/20/2022 Time: 20:43 Bed 13 Private MD: ED Physician Liborio Murillo HPI: 01/20 21:30 This 26 yrs old Female presents to ER via Ambulatory with complaints of Arm jl9 Pain X2 weeks. Patient seen here 2 days ago and diagnosed with thrombophlebitis. Patient states pain has not gone away and reports that she called her PCP today but was unable to pay so she came back to the ED. Patient dneies any worsening of symptoms. . 21:30 The patient or guardian complains of pain, that is acute. The complaints affect the jl9 right bicep. Onset: The symptoms/episode began/occurred 2 week(s) ago. Treatment prior to arrival includes: elevation of the extremity, icing the affected extremity. Modifying factors: the symptoms are aggravated by movement. Severity of symptoms: in the emergency department the symptoms a " 2" out of "10". The patient has been recently seen by a physician: 2 day(s) ago. 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 - Social history:: Smoking status: unknown. ROS: 21:33 Constitutional: Negative for fever, chills, and weight loss, Eyes: Negative for injury, jl9 pain, redness, and discharge, ENT: Negative for injury, pain, and discharge, Neck: Negative for injury, pain, and swelling, Cardiovascular: Negative for chest pain, palpitations, and edema, Respiratory: Negative for shortness of breath, cough, wheezing, and pleuritic chest pain, Abdomen/GI: Negative for abdominal pain, nausea, vomiting, diarrhea, and constipation. 21:33 Skin: Negative for injury, rash, and discoloration, Neuro: Negative for headache, weakness, numbness, tingling, and seizure, Psych: Negative for depression, anxiety, suicide ideation, homicidal ideation, and hallucinations, Allergy/Immunology: Negative for hives, rash, and allergies, Endocrine: Negative for neck swelling, polydipsia, polyuria, polyphagia, and marked weight changes, Hematologic/Lymphatic: Negative for swollen nodes, abnormal bleeding, and unusual bruising. 21:33 MS/extremity: Positive for pain, RUE. Exam: 21:34 Constitutional: This is a well developed, well nourished patient who is awake, alert, jl9 and in no acute distress. Head/Face: Normocephalic, atraumatic. Eyes: Pupils equal round and reactive to light, extra-ocular motions intact. Lids and lashes normal. Conjunctiva and sclera are non-icteric and not injected. Cornea within normal limits. Periorbital areas with no swelling, redness, or edema. ENT: Mucous membranes moist. Neck: Trachea midline, no thyromegaly or masses palpated, and no cervical lymphadenopathy. Supple, full range of motion without nuchal rigidity, or vertebral point tenderness. No Meningismus. Chest/axilla: Normal chest wall appearance and motion. Nontender with no deformity. No lesions are appreciated. Cardiovascular: Regular rate and rhythm with a normal S1 and S2. No gallops, murmurs, or rubs. Normal PMI, no JVD. No pulse deficits. Respiratory: Lungs have equal breath sounds bilaterally, clear to auscultation and percussion. No rales, rhonchi or wheezes noted. No increased work of breathing, no retractions or nasal flaring. Abdomen/GI: Soft, non-tender, with normal bowel sounds. No distension or tympany. No guarding or rebound. No evidence of tenderness throughout. Back: No spinal tenderness. No costovertebral tenderness. Full range of motion. Skin: Warm, dry with normal turgor. Normal color with no rashes, no lesions, and no evidence of cellulitis. 21:34 Neuro: Awake and alert, GCS 15, oriented to person, place, time, and situation. Cranial nerves II-XII grossly intact. Motor strength 5/5 in all extremities. Sensory grossly intact. Cerebellar exam normal. Normal gait. Psych: Awake, alert, with orientation to person, place and time. Behavior, mood, and affect are within normal limits. 21:34 Musculoskeletal/extremity: DVT Exam: pain, RUE mild pain. Known basilic occlusion. . Vital Signs: 21:02 BP 119 / 91; Pulse 72; Resp 18; Temp 97.4; Pulse Ox 100% on R/A; Weight 93.44 kg; 3 Height 5 ft. 7 in. (170.18 cm); Pain 8/10; 21:02 Body Mass Index 32.26 (93.44 kg, 170.18 cm) 3 MDM: 21:04 Patient medically screened. jl9 21:34 Data reviewed: vital signs, nurses notes. jl9 Administered Medications: No medications were administered Disposition: 22:52 Co-signature as Attending Physician, Liborio Murillo MD. rn Disposition Summary: 01/20/22 21:35 Discharge Ordered Location: Home jl9 Condition: Stable jl9 Diagnosis - Pain in right arm jl9 Followup: jl9 - With: Private Physician - When: 1 - 2 days - Reason: Recheck today's complaints, Continuance of care, Re-evaluation by your physician Discharge Instructions: - Discharge Summary Sheet jl9 - Thrombophlebitis jl9 Forms: - Medication Reconciliation Form jl9 - Thank You Letter jl9 - Antibiotic Education jl9 - Prescription Opioid Use jl9 Prescriptions: - TORADOL - take 1 tablet by ORAL route 3 times per day As needed; 30 tablet; Refills: 0, jl9 Product Selection Permitted Signatures: Liborio Murillo MD MD rn Mazur, Sarah, RN RN [facility] Jami Yu [facility] Jos eC Power jl9 Corrections: (The following items were deleted from the chart) 21:33 21:30 This 26 yrs old Female presents to ER via Ambulatory with complaints of jl9 Arm Pain X2 weeks. Patient seen here 2 days ago and diagnosed with thromobohplebitis. Patient states pain has not gone away and reports that she called her PCP today but was unable to pay so she came back to the ED. Patient dneies any worsening of symptoms. . jl9
--- NOTE | 2022-01-21 10:32 | ER ---
Nurse's Notes [facility] Name: Elba Wells Age: 26 yrs Sex: Female : 1995 Arrival Date: 01/20/2022 Time: 20:43 Bed 13 Private MD: Diagnosis: Pain in right arm Presentation: 01/20 21:08 Chief complaint: Patient states: pain and swelling in right arm since 2 weeks ago. 3 Coronavirus screen: Vaccine status: Patient reports being unvaccinated. Ebola Screen: No symptoms or risks identified at this time. Initial Sepsis Screen: Does the patient meet any 2 criteria? No. Patient's initial sepsis screen is negative. Does the patient have a suspected source of infection? No. Patient's initial sepsis screen is negative. Risk Assessment: Do you want to hurt yourself or someone else? Patient reports no desire to harm self or others. Onset of symptoms was January 01, 2022. 21:08 Method Of Arrival: Ambulatory [facility] 21:08 Acuity: CED 3 eh3 Triage Assessment: 21:08 General: Appears in no apparent distress. uncomfortable, Behavior is calm, cooperative, eh3 appropriate for age. Pain: Complains of pain in right bicep Pain radiates to neck Pain currently is 7 out of 10 on a pain scale. Quality of pain is described as burning, aching, sharp, throbbing, Pain began 2 weeks ago Is continuous. Neuro: Level of Consciousness is awake, alert, obeys commands, Oriented to person, place, time, situation. Cardiovascular: Capillary refill < 3 seconds Patient's skin is warm and dry. Respiratory: Airway is patent Respiratory effort is even, unlabored. 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 - Social history:: Smoking status: unknown. Screenin:01 Abuse screen: Denies threats or abuse. Denies injuries from another. Nutritional sm5 screening: No deficits noted. Tuberculosis screening: No symptoms or risk factors identified. Fall Risk None identified. Assessment: 22:01 General: Appears in no apparent distress. Behavior is cooperative. Pain: Complains of sm5 pain in right arm. Neuro: Level of Consciousness is awake, alert, obeys commands, Oriented to person, place, time, situation. Cardiovascular: Capillary refill < 3 seconds Patient's skin is warm and dry. Musculoskeletal: Swelling present in right arm. Vital Signs: 21:02 BP 119 / 91; Pulse 72; Resp 18; Temp 97.4; Pulse Ox 100% on R/A; Weight 93.44 kg; 3 Height 5 ft. 7 in. (170.18 cm); Pain 8/10; 21:02 Body Mass Index 32.26 (93.44 kg, 170.18 cm) [facility] ED Course: 20:43 Patient arrived in ED. bp1 20:46 Jose C Power is PHCP. jl9 20:46 Liborio Murillo MD is Attending Physician. jl9 21:08 Arm band placed on left wrist. 3 21:09 Triage completed. 3 22:01 Tawnya Be RN is Primary Nurse. 5 22:02 Patient has correct armband on for positive identification. Bed in low position. Call sm5 light in reach. Side rails up X 1. 22:02 No provider procedures requiring assistance completed. Patient did not have IV access 5 during this emergency room visit. Administered Medications: No medications were administered Medication: 22:02 VIS not applicable for this client. sm5 Outcome: 21:35 Discharge ordered by . jl9 22:02 Discharged to home ambulatory. sm5 22:02 Condition: stable 22:02 Discharge instructions given to patient, Instructed on discharge instructions, follow up and referral plans. medication usage, Demonstrated understanding of instructions, follow-up care, medications, Prescriptions given X 1. 22:02 Patient left the ED. sm5 Signatures: Elham Mireles bp1 Tawnya Be, BALDOMERO RN 5 Jami Yu [facility] Jose C Power jl9 Corrections: (The following items were deleted from the chart) 21:04 21:02 BP 119 / 91; Pulse 72bpm; Resp 18bpm; Pulse Ox 100% RA; Temp 97.4F; eh3 eh3
== END 2022-01-20 22:02 | disposition home or self-care (01) ==
LOC: ER 20:40
DX: M79.601 Pain in right arm (principal); Z91.041 Radiographic dye allergy status
CPT/HCPCS: 99282

== ENCOUNTER 2022-05-15 22:53 | Emergency (ER) | payer SELFPAY ==
--- OUTSIDE RECORDS SUMMARY | 2022-05-15 22:56 | XMS REPORT | Continuity of Care Document ---
:1995 Author Organization [facility] t Address [address] [place] [address] Care Team Providers Name Role Phone LAM Sheridan [facility] Primary Care P hysician Unavailable WILBERT WILLOUGHBY Attending Clinician Unavailable YESSENIA DOLL Attending Clinician Unavailable WINIFRED JAMES Attending Clinician Unavailable Winifred James NP Attending Clinician Doctor Unassigned, [place] Attending Clinician Unavailable SULEIMAN JARVIS Attending Clinician Unavailable Provider, [facility] Attending Clinician Unavailable Suleiman Connell Attending Clinician Roman Pete CERON Attending Clinician [phone] LOUISE PRADO Attending Clinician Unavailable Wilbert Downey Attending Clinician Danilo Louise JOHNSTON Attending Clinician PETE PILLAI Attending Clinician Unavailable Jamie Sanders Attending Clinician INOCENCIO Attending Clinician Unavailable JAMIE WALL Attending Clinician Unavailable JAMIE BENAVIDEZ Attending Clinician Unavailable Sam Duarte Attending Clinician Demetrio ALEXANDRE, Lara Attending Clinician Unavailable Belén TONY, Joanne Luo Attending Clinician Juan Marshall DO Attending Clinician Radha Grider MD Attending Clinician RADHA GRIDER Attending Clinician Unavailable Sam KEMP Attending Clinician Unavailable Luisa Logan Attending Clinician LUISA LUNA Attending Clinician Unavailable Jessica Bob MD Attending Clinician JESSICA BOB Attending Clinician Unavailable MANAN ARCE III Attending Clinician Unavailable Manan Saldana Attending Clinician INOCENCIO Admitting Clinician Unavailable RADHA GRIDER Admitting Clinician Unavailable Sam KEMP Admitting Clinician Unavailable LUISA LUNA Admitting Clinician Unavailable JESSICA BOB Admitting Clinician Unavailable MNAAN ARCE III Admitting Clinician Unavailable Payers Payer Name Policy Type Policy Number Effective Date Expiration Date Puja bobo [id number] 2020 00:00:00 MEDICAID PENDING PENDING 2019 2019 00:00:00 00:00:00 Problems Condition Condition Condition Status Onset Resolution Last Treating Co mments Source Name Details Category Date Date Treatment Clinician Date Dysmenorrh Dysmenorrh Disease Active 2021-06 U jeferson ea ea 0-29 ity of 00:00: [place] 00 [facility] History of History of Disease Active 2021-06 U jeferson breast breast 0-29 ity of pain pain 00:00: [place] 00 Medical Branch Breakthrou Breakthrou Disease Active 2021-06 U jeferson gh gh 0-29 ity of bleeding bleeding 00:00: [place] on on 00 Medical contracept contracept Br anch debra patch debar patch Fibrocysti Fibrocysti Disease Active 2021-06 U nivmodesta c breast c breast 0-14 ity of disease disease 00:00: [place] (FCBD), (FCBD), 00 Medical unspecifie unspecifie Br anch d d laterality laterality Irregular Irregular Disease Active 2021-06 Uni vers menstrual menstrual 0-14 ity of cycle cycle 00:00: [place] 00 Medical Branch Pain of Pain of Disease Active 2021-06 Univers both both 0-14 ity of breasts breasts 00:00: [place] 00 Medical Branch Screening Screening Disease Active 2021-06 Uni vers for for 0-13 [place] of malignant malignant [place] ne[place] 00 Medica l of the of the Branch cervix cervix Encounter Encounter Disease Active 2021-06 Uni vers for for 0-13 ity of surveillan [place] ce of Medical transderma transderma Br anch l patch l patch hormonal hormonal contracept contracept debra device debra device Itching of Itching of Disease Active U nivers vagina vagina 5-24 ity of 00:00: [place] 00 Medical Branch Dysuria Dysuria Disease Active Univers 5-24 ity of 00:00: [place] [facility] Class 2 Class 2 Disease Active Univers [...] disease) Overweight Overweight Disease Active U nivers 2-01 ity of 00:00: [place] 00 Medical Branch BMI BMI Disease Active Univers 35.0-35.9, 35.0-35.9, 4-06 it y of adult adult 00:00: [place] 00 Medical Branch Allergies, Adverse Reactions, Alerts [...] Start Date Stop Date Quantity Comments Source ASSERTION [facility] Exposure to 2022-04-17 2022-04-27 Not sure [facility] SARS-CoV-2 00:00:00 02:01:00 [facility] (event) Branch Alcohol intake 2022-04-27 2022-04-27 Current drinker Unive rsity of 00:00:00 00:00:00 of alcohol [facility] (finding) [place] Tobacco use and 2021-12-30 2021-12-30 Smokeless tobacco Un iversity of exposure 00:00:00 00:00:00 non-user [place] [facility] History SDOH 2020-06-27 2020-06-27 3 University o f Alcohol Frequency 00:00:00 00:00:00 [place] M edical Branch History SDOH 2020-06-27 2020-06-27 99 University o f Alcohol Std 00:00:00 00:00:00 [place] Medical Drinks Branch History SDOH 2020-06-27 2020-06-27 99 University o f Alcohol Binge 00:00:00 00:00:00 [place] Medic al Branch Alcohol Comment 2020-06-27 2020-06-27 on occassion, Univer sity of 00:00:00 00:00:00 liquor and beer [place] Med ical on occassions. Branch Sex Assigned At [birth year] Universit y of 00:00:00 00:00:00 [facility] Smoking Status Start Date Stop Date Source Never smoked tobacco [facility] Medications Ordered Filled Start Stop Current Ordering Indication Dosage Frequency Signature Comments Components Source Medication Medication Date Date Medication? Clinician (SIG) Name Name HYDROcodone 2021-06 No 1{tbl} 1 tablet, Univers -acetaminop 06-27 Oral, ity of hen (NORCO) 09:30: 08:47 [place]CE[place] 1 [place] 10-325 [place] 00 :00 dose, On Medica l tablet 1 Mon Branch tablet 04/27/22 at 0330, Routine ketorolac 2021-06- No 30mg 30 mg, Unive rs (TORADOL) 06-27 Slow IV ity of injection 09:00: 08:25 Push, [place] 30 mg 00 :00 ONCE, 1 Medical dose, On Branch 04/27/22 at 0300, Routine tranexamic 2021-06- Yes [id number] 1300mg Take 2 Univers acid 650 mg 06-27 100 tablets by i ty of tablet 00:00: 05:59 mouth in [place] 00 :00 the Medical morning Branch and 2 tablets at noon and 2 tablets in the evening. Do all this for 5 days. norelgestro 2021-0 Yes [id number] 1{patch Apply 1 Univers min-ethinyl 7-12 } Patch to ity of estradiol 00:00: [facility] 00 weekly. Medical 150-35 For 3 Branch mcg/24 hr weeks, patch followed by 1 week no ptach norelgestro 2021-0 Yes [id number] 1{patch Apply 1 Univers min-ethinyl 7-12 } Patch to ity of estradiol 00:00: [facility] 00 weekly. Medical 150-35 For 3 Branch mcg/24 hr weeks, patch followed by 1 week no ptach norelgestro 2021-0 Yes [id number] 1{patch Apply 1 Univers min-ethinyl 7-12 } Patch to ity of estradiol 00:00: [facility] 00 weekly. Medical 150-35 For 3 Branch mcg/24 hr weeks, patch followed by 1 week no ptach norelgestro 2022-0 Yes [id number] 1{patch Apply 1 Univers min-ethinyl 7-12 } Patch to ity of estradiol 00:00: [facility] 00 weekly. Medical 150-35 For 3 Branch mcg/24 hr weeks, patch followed by 1 week no ptach norelgestro 2022-0 Yes [id number] 1{patch Apply 1 Univers min-ethinyl 7-12 } Patch to ity of estradiol 00:00: [facility] 00 weekly. Medical 150-35 For 3 Branch mcg/24 hr weeks, patch followed by 1 week no ptach norelgestro 2022-0 Yes [id number] 1{patch Apply 1 Univers min-ethinyl 7-12 } Patch to ity of estradiol 00:00: [facility] 00 weekly. Medical 150-35 For 3 Branch mcg/24 hr weeks, patch followed by 1 week no ptach norelgestro 2022-0 Yes [id number] 1{patch Apply 1 Univers min-ethinyl 7-12 } Patch to ity of estradiol 00:00: [facility] 00 weekly. Medical 150-35 For 3 Branch mcg/24 hr weeks, patch followed by 1 week no ptach norelgestro 2022-0 Yes [id number] 1{patch Apply 1 Univers min-ethinyl 7-12 } Patch to ity of estradiol 00:00: [facility] 00 weekly. Medical 150-35 For 3 Branch mcg/24 hr weeks, patch followed by 1 week no ptach norelgestro 2022-0 2022- No [id number] 1{patch Apply 1 Univers min-ethinyl 7-12 11-07 } Patch to ity of estradiol 00:00: 00:00 [facility] 00 :00 weekly. Medical 150-35 For 3 Branch mcg/24 hr weeks, patch followed by 1 week no ptach cetirizine Yes Take by Univ ers HCl (ZYRTEC 1-07 mouth. ity of ORAL) 15:45: [address] cetirizine Yes Take by Univ ers HCl (ZYRTEC 1-07 mouth. ity of ORAL) 15:45: [address] cetirizine Yes Take by Univ ers HCl (ZYRTEC 1-07 mouth. ity of ORAL) 15:45: [address] cetirizine Yes Take by Univ ers HCl (ZYRTEC 1-07 mouth. ity of ORAL) 15:45: [address] cetirizine Yes Take by Univ ers HCl (ZYRTEC 1-07 mouth. ity of ORAL) 15:45: [address] cetirizine Yes Take by Univ ers HCl (ZYRTEC 1-07 mouth. ity of ORAL) 15:45: [address] cetirizine Yes Take by Univ ers HCl (ZYRTEC 1-07 mouth. ity of ORAL) 15:45: [address] cetirizine 0 Yes Take by Univ ers HCl (ZYRTEC 1-07 mouth. ity of ORAL) 15:45: [address] cetirizine Yes Take by Univ ers HCl (ZYRTEC 1-07 mouth. ity of ORAL) 15:45: [address] Immunizations Ordered Filled Immunization Date Status Comments Sour e Immunization Name Name HPV9 2020-06-27 Completed University of 00:00:00 [facility] HPV9 2020-06-27 Completed University of 00:00:00 [facility] HPV9 2020-06-27 Completed University of 00:00:00 [facility] HPV9 2020-06-27 Completed University of 00:00:00 [facility] HPV9 2020-06-27 Completed University of 00:00:00 [facility] HPV9 2020-06-27 Completed University of 00:00:00 [facility] HPV9 2020-06-27 Completed University of 00:00:00 [facility] HPV9 2020-06-27 Completed University of 00:00:00 [facility] HPV9 2020-06-27 Completed University of 00:00:00 [facility] TDAP 2017-12-21 Completed University of 00:00:00 [facility] TDAP 2017-12-21 Completed University of 00:00:00 [facility] TDAP 2017-12-21 Completed University of 00:00:00 [facility] TDAP 2017-12-21 Completed University of 00:00:00 [facility] TDAP 2017-12-21 Completed University of 00:00:00 [facility] TDAP 2017-12-21 Completed University of 00:00:00 [facility] TDAP 2017-12-21 Completed University of 00:00:00 [facility] TDAP 2017-12-21 Completed University of 00:00:00 [facility] TDAP 2017-12-21 Completed University of 00:00:00 [facility] TDAP 2016-07-09 Completed University of 00:00:00 [facility] TDAP 2016-07-09 Completed University of 00:00:00 [facility] TDAP 2016-07-09 Completed University of 00:00:00 [facility] TDAP 2016-07-09 Completed University of 00:00:00 [facility] TDAP 2016-07-09 Completed University of 00:00:00 [facility] TDAP 2016-07-09 Completed University of 00:00:00 [facility] TDAP 2016-07-09 Completed University of 00:00:00 [facility] TDAP 2016-07-09 Completed University of 00:00:00 [facility] TDAP 2016-07-09 Completed University of 00:00:00 [facility] Influenza Virus 2016-03-25 Completed Universit y of Vaccine Quad IM 3+ 00:00:00 [facility] Influenza Virus 2016-03-25 Completed Universit y of Vaccine Quad IM 3+ 00:00:00 [facility] Influenza Virus 2016-03-25 Completed Universit y of Vaccine Quad IM 3+ 00:00:00 [facility] Influenza Virus 2016-03-25 Completed Universit y of Vaccine Quad IM 3+ 00:00:00 [facility] Influenza Virus 2016-03-25 Completed Universit y of Vaccine Quad IM 3+ 00:00:00 [facility] Influenza Virus 2016-03-25 Completed Universit y of Vaccine Quad IM 3+ 00:00:00 [facility] Influenza Virus 2016-03-25 Completed Universit y of Vaccine Quad IM 3+ 00:00:00 [facility] Influenza Virus 2016-03-25 Completed Universit y of Vaccine Quad IM 3+ 00:00:00 [facility] Influenza Virus 2016-03-25 Completed Universit y of Vaccine Quad IM 3+ 00:00:00 [facility] Vital Signs Vital Name Observation Time Observation Value Comments Source Respiratory rate 2022-04-27 08:02:00 18 /min [facility] Body height 2022-04-27 08:02:00 170.2 cm [facility] Body weight 2022-04-27 08:02:00 91.173 kg [facility] BMI 2022-04-27 08:02:00 31.48 kg/m2 [facility] Oxygen saturation in 2022-04-27 08:02:00 99 /min [facility] Arterial blood by [facility] Pulse oximetry Branch Systolic blood 2022-04-27 08:02:00 121 mm[Hg] Univer sity of pressure [place] [facility] Diastolic blood 2022-04-27 08:02:00 82 mm[Hg] Unive rsity of pressure [place] [facility] Heart rate 2022-04-27 08:02:00 85 /min Universi ty of [place] [facility] Body temperature 2022-04-27 08:02:00 37.06 Sandhya Univ ersity of [place] [facility] Systolic blood 2022-04-18 16:19:00 103 mm[Hg] Univer sity of pressure [place] [facility] Diastolic blood 2022-04-18 16:19:00 69 mm[Hg] Unive rsity of pressure [place] [facility] Heart rate 2022-04-18 16:19:00 84 /min Universi ty [facility] [place] [facility] Body temperature 2022-04-18 16:19:00 36.5 Sandhya Univ ersity of [place] [facility] Respiratory rate 2022-04-18 16:19:00 20 /min Univ ersity of [place] [facility] Body height 2022-04-18 16:19:00 170.2 cm Universi ty [facility] [place] [facility] Body weight 2022-04-18 16:19:00 91.491 kg [facility]i ty [facility] [place] [facility] BMI 2022-04-18 16:19:00 31.59 kg/m2 Universi ty [facility] [place] [facility] Systolic blood 2022-04-02 18:22:00 122 mm[Hg] Univer sity of pressure [place] [facility] Diastolic blood 2022-04-02 18:22:00 73 mm[Hg] Unive rsity of pressure [place] [facility] Heart rate 2022-04-02 18:22:00 74 /min Universi ty [facility] [place] [facility] Body temperature 2022-04-02 18:22:00 36 Sandhya Univ ersity of [place] [facility] Respiratory rate 2022-04-02 18:22:00 18 /min Univ ersity of [place] [facility] Body height 2022-04-02 18:22:00 170.2 cm Universi ty [facility] [place] [facility] Body weight 2022-04-02 18:22:00 92.59 kg Universi ty [facility] [place] [facility] BMI 2022-04-02 18:22:00 31.97 kg/m2 [facility] [place] [facility] Procedures Procedure Date / Time Performing Clinician Source Performed CBC WITH DIFF 2022-04-27 08:22:00 Joanne Melissa [facility] POCT TEST 2022-04-27 08:22:00 Joanne Melissa [facility] NOTICE OF PRIVACY 2022-04-27 07:55:47 [facility] CONSENT[facility]REFUSAL FOR 2022-04-27 07:54:13 Doctor Unassigned, [facility] EXTERNAL PROVIDER 2022-04-03 05:01:00 Doctor Unassigned, No Univ ersity of [place] RECORDS Name [facility] POCT TEST 2022-04-02 19:31:00 Louise Prado [facility] THYROID STIMULATING 2022-04-02 19:05:00 Louise Prado [facility] Encounters Start End Encounter Admission Attending Care Care Encounter Source Date/Time Date/Time Type Type Clinicians Facility Department ID 2021-04-22 Emergency [facility] [id number] Univers 01:27:59 ity [facility] 2021-04-21 Emergency [facility] [id number] Univers [facility] 2021-04-18 Emergency [facility] [id number] Univers 21:43:[facility] 2022-05-23 2022-05-23 Outpatient R [facility] [id number] Univers 10:30:00 10:30:00 [facility] 2022-05-01 2022-05-01 Outpatient R LAVON [facility] [id number] Univers 08:00:00 08:00:00 [facility] 2022-04-30 2022-04-30 Outpatient R CASE [facility] [id number] Univers 07:45:00 07:45:00 WILBERT maldonado o f [facility] 2022-04-27 2022-04-27 Emergency X EIRKA [facility] ERT [id number] Univers 02:06:00 02:53:00 [facility] 2022-04-27 2022-04-27 [facility] [id number] Univers 02:06:00 02:53:00 Winifred PATE [id number] ity of [place] [id number] [facility] [phone] [facility] 084 [place] 2022-04-27 2022-04-27 Orders Doctor BRONWYN 1.2.840.114 [id number] Univers 00:00:00 00:00:00 Only Unassigned, FAUSTO [id number] ity of [place] [facility] [id number] Rodney as [id number] [facility] 009 [place] 2022-04-18 2022-04-18 Outpatient R EVARISTO [facility] [id number] Univers 10:45:00 11:50:36 SULEIMAN [facility] 2022-04-18 2022-04-18 Office Provider, RadhaRmchjacki [facility] 1 .2.840.114 [id number] Univers 10:45:00 11:50:36 Visit Suleiman Jarvis CHEF BROILER OR FRY [id number] ity of [facility] [id number] Rodney as MATERNAL [phone] Med ical & CHILD [address] [place] [address] 2022-04-17 2022-04-17 Telephone [facility] 1.2.840.114 [id number] Univers 00:00:00 00:00:00 Pete Piedra CHEF BROILER OR FRY [id number] ity of [facility] [id number] Rodney as MATERNAL [id number] [facility] ical & CHILD [address] [place] [address] 2022-04-16 2022-04-16 Outpatient Alannah DOLL [facility] [id number] Univers 12:45:00 12:45:00 YESSENIA [facility] 2022-04-03 2022-04-03 Orders Doctor BRONWYN [id number] [id number] Univers 00:00:00 00:00:00 Only Unassigned, FAUSTO [id number] ity of [place] [facility] [id number] Rodney as [id number] [address] 2022-04-02 2022-04-02 Outpatient R JANKI [facility] [id number] Univers 12:45:00 14:18:13 LOUISE maldonado [facility] 2022-04-02 2022-04-02 Office Provider, Noah Cisneros [facility] 1 .2.840.114 [id number] Univers 12:45:00 14:18:13 Visit Wilbert Willoughby CHEF BROILER OR FRY 350.1.13.10 ity [facility] [id number] [place] MATERNAL [id number] [facility] & CHILD [address] [place] [address] 2022-04-01 2022-04-01 Outpatient R CASE [facility] [id number] Univers 09:00:00 09:00:00 WILBERT [facility] 2022-01-21 2022-01-21 Outpatient R ROMAN [facility] [id number] Univers 13:15:00 13:15:00 PETE [facility] 2022-01-16 2022-01-16 [facility] 1.2.840.114 [id number] Univers 00:00:00 00:00:00 Jamie Francis CHEF BROILER OR FRY 350.1.13.10 i ty of [facility] [id number] Rodney as MATERNAL [phone] [facility] & CHILD [address] [place] [address] 2022-01-15 2022-01-15 Patient Doctor BRONWYN 1.2.840.114 [id number] Univers 00:00:00 00:00:00 Secure Msg Unassigned, FAUSTO 350.1.13.10 ity of [place] [facility] [id number] Rodney as [phone] [facility] 019 [place] 2022-01-14 2022-01-14 Outpatient GUY GONZALEZ 899 [place] 00:00:00 00:00:00 SSA 0727 [facility] 2021-12-31 2021-12-31 Telephone Sydnie [facility] 1.2.840.114 [id number] Univers 00:00:00 00:00:00 Jamie Francis CHEF BROILER OR FRY 350.1.13.10 i ty of [facility] [id number] Ordney as MATERNAL [id number] [facility] & CHILD [address] [place] [address] 2021-12-31 2021-12-31 Telephone [facility] [id number] Univers 00:00:00 00:00:00 Samya R CHEF BROILER OR FRY [id number] ity of [facility] [id number] Rodney as MATERNAL [phone] [facility] & CHILD [address] [place] [address] 2021-12-30 2021-12-30 Office Provider, Noah Cisneros [facility] 1 .2.840.114 [id number] Univers 14:30:00 16:19:20 Visit Jamie Wall CHEF BROILER OR FRY 350.1.13.10 ity of [facility] [id number] Rodney as MATERNAL [id number] [facility] & CHILD [address] [place] [address] 2021-12-30 2021-12-30 Outpatient R JAMIE WALL [facility] [id number] Univers 14:30:00 16:19:20 JAMIE WALL [facility] 2021-12-30 2021-12-30 Outpatient R JAMIE WALL [facility] [id number] Univers 14:30:00 14:30:00 JAMIE WALL [facility] 2021-12-18 2021-12-18 Outpatient Alannah WILLOUGHBY [facility] [id number] Univers 09:45:00 09:45:00 GRANTNDA itanna o f [facility] 2021-12-03 2021-12-03 Outpatient Alannah WILLOUGHBY [facility] [id number] Univers 13:00:00 13:00:00 GRANTNDA ity o f [facility] 2021-12-02 2021-12-02 [facility] [id number] Univers 00:00:00 00:00:00 Samya R CHEF BROILER OR FRY [id number] ity of [facility] [id number] Rodney as MATERNAL [phone] [facility] & CHILD [address] [place] [address] 2021-12-01 2021-12-01 Outpatient R CASE [facility] [id number] Univers 13:30:00 13:30:00 WILBERT maldonado o natali [facility] 2021-12-01 2021-12-01 Outpatient R CASE [facility] [id number] Univers 13:30:00 13:30:00 WILBERT maldonado o [facility] 2021-11-13 2021-11-13 Tele[facility] [id number] Univers 00:00:00 00:00:00 [facility]F BROILER OR FRY 350.1.13.10 ity of [facility] [id number] Rodney as MATERNAL [phone] [address] 2021-11-11 2021-11-11 [facility] [id number] Univers 14:45:00 16:08:19 [facility] 2021-11-11 2021-11-11 Office [facility] 1.2.840.114 [id number] Univers 14:45:00 16:08:19 [facility] Alannah CHEF BROILER OR FRY 350.1.13.10 ity of [facility] [id number] Rodney as MATERNAL [phone] [facility] & CHILD [address] [place] [address] 2021-11-11 2021-11-11 Orders Doctor BARNHART 1.2.840.114 [id number] Univers 00:00:00 00:00:00 Only Unassigned, FAUSTO 350.1.13.10 ity of [place] [facility] [id number] Rodney as [phone] [address] 2021-03-21 2021-03-21 Outpatient R ROMAN [facility] [id number] Univers 14:45:00 14:45:00 PETE saqibanna o [facility] 2021-03-20 2021-03-20 Telephone [facility] 1.2.840.114 [id number] Univers 00:00:00 00:00:00 Pete Piedra CHEF BROILER OR FRY 350.1.13.10 [facility] [id number] Rodney as MATERNAL [phone] [facility] ical & CHILD [address] [place] [address] 2021-03-19 2021-03-19 Outpatient Alannah BENAVIDEZ [facility] [id number] Univers 14:45:00 14:45:00 JAMIE saqibanna [facility] 2021-03-18 2021-03-18 [facility] [id number] Univers 15:15:00 15:15:00 JAMIE anna [facility] 2021-03-16 2021-03-17 Emergency Sam Kemp [facility] 1.2.840.114 [id number] Univers 22:39:00 01:20:00 Salina Pate 350.1.13.10 i ty [facility] [id number] [facility] [id number] [address] 2021-02-20 2021-02-20 Telephone Lara Atkinson [id number] Univers 00:00:00 00:00:00 FAUSTO [id number] it y of [facility] 4.2.7.2.686 Rodney as [id number] [address] 2021-02-19 2021-02-19 Emergency Belén [facility] [id number] Univers 02:37:00 03:44:00 Billsawdaniel Puja Pate [id number] ity [facility] [id number] [facility] [id number] [address] 2020-09-10 2020-09-10 Patient Rolando MOCHERYL [id number] 00:00:00 00:00:00 Outreach Juan MOODY [id number] [facility] 4.2.7.2.686 P[facility]ION [id number] 388 2020-09-10 2020-09-10 Patient Rolando [facility] [id number] Univers 00:00:00 00:00:00 Outreach Juan PRIMARY [id number] i ty of [facility] 4.2.7.2.686 Kip QUINN [id number] [address] 2020-08-27 2020-08-27 [facility] [id number] Univers 10:30:00 10:30:00 ROSSTEPHENNDA ity o [facility] 2020-08-26 2020-08-26 Outpatient [facility] [id number] Univers 13:30:00 13:30:00 ity of [facility] 2020-07-11 2020-07-11 [facility] [id number] Univers 13:15:00 13:15:00 MCKINLEYNDA ity o [facility] 2020-06-27 2020-06-27 [facility] 1.2.840.114 [id number] 15:21:42 16:19:[address] [facility] CHEF BROILER OR FRY [id number] [facility] 4.2.7.2.686 MATERNAL [id number] & CHILD [address] [place] [address] 2020-06-27 2020-06-27 [facility] 1.2.840.114 [id number] Univers 15:21:42 16:19:[address] [facility] CHEF BROILER OR FRY [id number] [facility] 4.2.7.2.686 Rodney as MATERNAL [id number] Med ical & CHILD [address] [place] [address] 2020-06-27 2020-06-27 Outpatient Alannah [facility] [id number] Univers 15:30:00 15:30:00 GRANTNDA ity o [facility] 2020-06-05 2020-06-05 [facility] [id number] Univers 15:15:00 15:15:00 ROSSTEPHENNDA ity o f [facility] 2020-03-27 2020-03-28 Emergency Sam Kemp [facility] 1.2.840.114 [id number] Univers 19:22:00 00:39:00 [place] [id number] i ty of Mam[place] 4.2.7.2.686 [facility] [id number] [address] 2019-12-05 2019-12-05 Emergency [facility] [id number] Univers 01:22:11 03:48:00 Radha Pate [id number] ity of [place] 4.2.7.2.686 [facility] [id number] [address] 2019-12-05 2019-12-05 Emergency X [facility] ERT [id number] Univers 01:22:11 03:48:00 RADHA maldonado [facility] 2019-11-15 2019-11-16 Emergency Sam Kemp [facility] 1.2.840.114 [id number] Univers 19:21:57 00:00:00 Salina Pate [id number] i ty of [place] 4.2.7.2.6 [facility] [id number] [address] 2019-11-15 2019-11-16 Emergency X Sam KEMP [facility] ERT [id number] Univers 19:21:57 00:00:00 ity of [facility] 2019-10-19 2019-10-19 [facility] [id number] Univers 04:35:17 06:17:00 Luisa Pate [id number] i ty of [place] 4.2.7.2.[address] [place] [id number] 2019-10-19 2019-10-19 Emergency Genet LUNA [facility] ERT [id number] Univers 04:35:17 06:17:00 LUISA ity [facility] 2019-08-31 2019-08-31 Emergency [facility] [id number] Univers 03:53:07 05:03:00 Jessica Pate [id number] i ty of [place] 4.2.7.2.686 [facility] [id number] [address] 2019-08-31 2019-08-31 Emergency X [facility] ERT [id number] Univers 03:53:07 05:03:00 JESSICA ity [facility] 2019-06-09 2019-06-09 Emergency X BETO III, [facility] ERT [id number] Univers 16:17:18 19:21:00 MANAN itanna [facility] 2019-01-29 2019-01-29 Emergency Beto, [facility] [id number] Univers 15:09:14 18:22:00 Manan A Nelli [id number] i ty of [place] 4.2.7.2.686 [facility] [id number] [facility] [address] 2019-01-29 2019-01-29 Orders Doctor BRONWYN 1.2.840.114 [id number] Univers 00:00:00 00:00:00 Only Unassigned, FAUSTO [id number] ity of [place] [facility] 4.2.7.2.686 [facility] [id number] [facility] [address] [place] Results Test Description Test Time Test Comments Results Result Comments Source POCT TEST 2022-04-27 08:22:00 Test Item Value Reference Range Interpretation Comme nts POCT PREG (test code = 1605) neg On board controls acceptable with C Line (test code = 3574) yes POCT PREG LOT # (test code = 3575) [id number] POCT PREG TEST DATE (test code = 3576) 09/19/2023 Lab Interpretation (test code = 30167-8) [id number] 06:28:56 Test Item Value Reference Range Interpretation Comments TSH (test code = See_Comment Biotin has been [id number]) reported to cau se a negative bias, interpret resul ts relative to gayle hughes's use of biotin. [Automated mess age] The system Wikirin h generated this result transmitted ref erence range: 0.45 - 4 .70 mIU/L. The refe rence range was not u sed to interpret this result as normal/abnor mal. Lab Interpretation (test Normal code = 82824-3) [facility] [id number] 06:28:56 Test Item Value Reference Range Interpretation Comments TSH (test code = See_Comment Biotin has been [id number]) reported to cau se a negative bias, interpret resul ts relative to pat saul's use of biotin. [Automated mess age] The system [employer] generated this result transmitted ref erence range: 0.45 - 4 .70 mIU/L. The refe rence range was not u sed to interpret this result as normal/abnor mal. Lab Interpretation (test Normal code = 87531-3) [facility] [id number] 19:31:00 Test Item Value Reference Range Interpretation Comments POCT PREG (test code = 1605) Negative On board controls acceptable with C Yes Line (test code = 3574) POCT PREG LOT # (test code = 3575) POCT PREG TEST DATE (test code = 3576) [facility] [id number] 19:31:00 Test Item Value Reference Range Interpretation Comments POCT PREG (test code = 1605) Negative On board controls acceptable with C Yes Line (test code = 3574) POCT PREG LOT # (test code = 3575) POCT PREG TEST DATE (test code = 3576) [facility]
[2022-05-16 00:11] LABS: SARS-COV-2 RT PCR NEGATIVE (NEGATIVE)
--- NOTE | 2022-05-16 00:41 | ER ---
Nurse's Notes [facility] Name: Elba Wells Age: 26 yrs Sex: Female : 1995 Arrival Date: 05/15/2022 Time: 22:56 Bed 7 Private MD: Diagnosis: Influenza due to unidentified influenza virus with other respiratory manifestations Presentation: 05/15 23:01 Chief complaint: Patient states: C/o body aches, weakness, H/A, cough, congestion, and ll3 runny nose since yesterday. Coronavirus screen: Vaccine status: Patient reports being unvaccinated. cough unrelated to allergies, fatigue, headache, runny nose. Ebola Screen: No symptoms or risks identified at this time. Initial Sepsis Screen: Does the patient meet any 2 criteria? No. Patient's initial sepsis screen is negative. Does the patient have a suspected source of infection? No. Patient's initial sepsis screen is negative. Risk Assessment: Do you want to hurt yourself or someone else? Patient reports no desire to harm self or others. Onset of symptoms was May 14, 2022. 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 - Social history:: Smoking status: Patient reports the use of cigarette tobacco products, denies chronic smoking, but will smoke occasionally. Assessment: 23:30 General: Appears in no apparent distress. uncomfortable, Behavior is calm, cooperative. jb4 Pain: Complains of pain in Generalized body aches Pain does not radiate. Pain currently is 10 out of 10 on a pain scale. Quality of pain is described as aching. Neuro: Level of Consciousness is awake, alert, obeys commands, Oriented to person, place, time, situation. Cardiovascular: Patient's skin is warm and dry. Respiratory: Airway is patent Respiratory effort is even, unlabored, Respiratory pattern is regular, symmetrical. GI: No signs and/or symptoms were reported involving the gastrointestinal system. : No signs and/or symptoms were reported regarding the genitourinary system. EENT: No signs and/or symptoms were reported regarding the EENT system. Derm: Skin is intact, Skin is pink, warm \T\ dry. Musculoskeletal: Circulation, motion, and sensation intact. Range of motion: intact in all extremities. Vital Signs: 23:01 BP 121 / 79; Pulse 72; Resp 18; Temp 97.6(O); Pulse Ox 100% on R/A; Weight 90.72 kg ll3 (R); Height 5 ft. 7 in. (170.18 cm) (R); Pain 10/10; 23:01 Body Mass Index 31.32 (90.72 kg, 170.18 cm) ll3 ED Course: 22:56 Patient arrived in ED. bp1 23:01 Ariel Leon PA is PHCP. cp 23:01 Liborio Murillo MD is Attending Physician. cp 23:03 Triage completed. ll3 23:03 Arm band placed on right wrist. ll3 23:25 Macarena Zavala, BALDOMERO is Primary Nurse. kd3 Administered Medications: No medications were administered Outcome: 05/16 00:40 Discharge ordered by . cp 00:58 Patient left the ED. jb4 Signatures: Ariel Leon PA PA cp Bryson, James, RN RN jb4 Elham Mireles Lynsea RN RN ll3 Macarena Zavala RN RN kd3
--- NOTE | 2022-05-16 00:41 | EDPHYS ---
Physician Documentation [facility] Name: Elba Wells Age: 26 yrs Sex: Female : 1995 Arrival Date: 05/15/2022 Time: 22:56 Bed 7 Private MD: ED Physician Liborio Murillo HPI: 05/15 23:20 This 26 yrs old Female presents to ER via Ambulatory with complaints of Cough, cp Congestion. 23:20 The patient or guardian reports cough, flu symptoms, low-grade fever, body aches, sore cp throat. Onset: The symptoms/episode began/occurred yesterday. Associated signs and symptoms: Pertinent positives: rhinorrhea, Pertinent negatives: chest pain, diarrhea, vomiting. 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 - Social history:: Smoking status: Patient reports the use of cigarette tobacco products, denies chronic smoking, but will smoke occasionally. ROS: 23:25 Constitutional: Positive for body aches, Negative for fever, poor PO intake. cp 23:25 Eyes: Negative for injury, pain, redness, and discharge. cp 23:25 ENT: Positive for rhinorrhea, sore throat, Negative for drainage from ear(s), ear pain. 23:25 Cardiovascular: Negative for chest pain. 23:25 Respiratory: Positive for cough, "sounds productive", Negative for wheezing. 23:25 Abdomen/GI: Negative for abdominal pain, vomiting, diarrhea, constipation. 23:25 Neuro: Positive for headache, Negative for altered mental status, dizziness, weakness. 23:25 All other systems are negative. Exam: 23:30 Constitutional: The patient appears in no acute distress, alert, awake, non-toxic, well cp developed, well nourished, obese. 23:30 Head/Face: Normocephalic, atraumatic. cp 23:30 Eyes: Periorbital structures: appear normal, Conjunctiva: normal, no exudate, no injection, Lids and lashes: appear normal, bilaterally. 23:30 ENT: External ear(s): are unremarkable, Ear canal(s): are normal, clear, TM's: bulging, is not appreciated, bilaterally, dullness, bilaterally, erythema, is not appreciated, bilaterally, Nose: nasal drainage, that is minimal, Mouth: Lips: moist, Oral mucosa: moist, Posterior pharynx: Airway: no evidence of obstruction, patent, Tonsils: with erythema, no enlargement, no exudate, swelling, is not appreciated, erythema, that is mild, exudate, is not appreciated. 23:30 Neck: ROM/movement: is normal, is supple, without pain, no range of motions limitations, no meningismus, no nuchal rigidity, Lymph nodes: no appreciated lymphadenopathy. 23:30 Chest/axilla: Inspection: normal. 23:30 Cardiovascular: Rate: normal, Rhythm: regular. 23:30 Respiratory: the patient does not display signs of respiratory distress, Respirations: normal, no use of accessory muscles, no retractions, labored breathing, is not present, Breath sounds: decreased breath sounds, are not appreciated, stridor, is not appreciated, + upper airway congestion. wheezing: is not appreciated. 23:30 Abdomen/GI: Exam negative for discomfort, distension, guarding, Inspection: abdomen appears normal. Vital Signs: 23:01 BP 121 / 79; Pulse 72; Resp 18; Temp 97.6(O); Pulse Ox 100% on R/A; Weight 90.72 kg ll3 (R); Height 5 ft. 7 in. (170.18 cm) (R); Pain 10/10; 23:01 Body Mass Index 31.32 (90.72 kg, 170.18 cm) ll3 MDM: 23:10 Patient medically screened. cp 23:30 Differential Diagnosis: Bronchitis Influenza Sinusitis Pharyngitis Otitis Media cp Pneumonia. 05/16 00:38 Data reviewed: vital signs, nurses notes, lab test result(s). Counseling: I had a cp detailed discussion with the patient and/or guardian regarding: the historical points, exam findings, and any diagnostic results supporting the discharge/admit diagnosis, lab results, to return to the emergency department if symptoms worsen or persist or if there are any questions or concerns that arise at home. 05/15 23:14 Order name: Strep cp 05/15 23:14 Order name: COVID-19/FLU A+B cp 05/15 23:57 Order name: Throat Culture EDMS Administered Medications: No medications were administered Disposition: 03:03 Co-signature as Attending Physician, Liborio Murillo MD. rn Disposition Summary: 05/16/22 00:40 Discharge Ordered Location: Home cp Problem: new cp Symptoms: are unchanged cp Condition: Stable cp Diagnosis - Influenza due to unidentified influenza virus with other respiratory manifestations cp Followup: cp - With: Private Physician - When: 2 - 3 days - Reason: Worsening of condition Discharge Instructions: - Discharge Summary Sheet cp - Influenza, Adult cp Forms: - Medication Reconciliation Form cp - Thank You Letter cp - Antibiotic Education cp - Prescription Opioid Use cp - Work release form jb4 Prescriptions: - Bromfed DM 2-30-10 mg/5 mL Oral syrup - take 10 milliliter by ORAL route every 6 hours; 180 milliliter; Refills: 0, cp Product Selection Permitted - Ibuprofen 800 mg Oral Tablet - take 1 tablet by ORAL route every 8 hours As needed take with food; 30 tablet; cp Refills: 0, Product Selection Permitted - Tamiflu 75 mg Oral Capsule - take 1 tablet by ORAL route every 12 hours for 5 days; 10 tablet; Refills: 0, cp Product Selection Permitted Signatures: Dispatcher [employer] EDMS Liborio Murillo MD MD rn Page, Corey, PA PA cp Loubet, Lynsea RN RN ll3
[2022-05-16 01:02] VITALS: BP 121/79; TEMP 97.6; O2SAT 100
== END 2022-05-16 00:58 | disposition home or self-care (01) ==
LOC: ER 22:53
DX: J11.1 Influenza due to unidentified influenza virus with other respiratory manifestations (principal); Z20.822 Contact with and (suspected) exposure to COVID-19
CPT/HCPCS: 0240U; 87070; 87081; 99281

== ENCOUNTER 2022-05-17 20:21 | Emergency (ER) | payer SELFPAY ==
--- OUTSIDE RECORDS SUMMARY | 2022-05-17 20:25 | XMS REPORT | Continuity of Care Document ---
:1995 Author Organization [facility] t Address [address] [place] [address] Care Team Providers Name Role Phone LAM Sheridan [facility] Primary Care P hysician Unavailable WILBERT WILLOUGHBY Attending Clinician Unavailable YESSENIA DOLL Attending Clinician Unavailable WINIFRED JAMES Attending Clinician Unavailable Winifred James NP Attending Clinician Doctor Unassigned, [place] Attending Clinician Unavailable SULEIMAN JARVIS Attending Clinician Unavailable Provider, [facility] Attending Clinician Unavailable Suleiman Connell Attending Clinician Roman Pete CERON Attending Clinician [phone] LOUISE PRADO Attending Clinician Unavailable Wilbert [...] Clinician Unavailable JESSICA BOB Admitting Clinician Unavailable MANAN ARCE III Admitting Clinician Unavailable Payers Payer Name Policy Type Policy Number Effective Date Expiration Date Puja bobo [id number] 2020 00:00:00 MEDICAID PENDING PENDING 2019 2019 00:00:00 00:00:00 Problems Condition Condition Condition Status Onset Resolution Last Treating Co mments Source Name Details Category Date Date Treatment Clinician Date Dysmenorrh Dysmenorrh Disease Active 2021-06 U jeferson ea ea 0-29 ity of 00:00: [place] 00 [facility] History of History of Disease Active 2021-06 U jeferson breast breast 0-29 ity of pain pain 00:00: [place] 00 [facility] Branch Breakthrou Breakthrou Disease Active 2021-06 U jeferson gh gh 0-29 ity of bleeding bleeding 00:00: [place] on on 00 Medical contracept contracept Br anch debra patch debra patch Fibrocysti Fibrocysti Disease Active 2021-06 U nivmodesta c breast c breast 0-14 ity of disease disease 00:00: [place] (FCBD), (FCBD), 00 Medical unspecifie unspecifie Br [...] Disease Active Univers 5-24 ity of 00:00: [place] [facility] Class 2 Class 2 Disease [...] 4-06 it y of adult adult 00:00: [place] 00 Medical [facility] Allergies, Adverse Reactions, Alerts [...] Date Stop Date Quantity Comments Source ASSERTION [facility] Exposure to 2022-04-17 2022-04-27 Not sure [facility] SARS-CoV-2 00:00:00 02:01:00 [facility] (event) Branch Alcohol intake 2022-04-27 2022-04-27 Current drinker Unive rsity of 00:00:00 00:00:00 of alcohol [facility] (finding) [place] Tobacco use and 2021-12-30 2021-12-30 Smokeless tobacco Un iversity of exposure 00:00:00 00:00:00 non-user [place] [facility] History SDOH 2020-06-27 2020-06-27 3 University o f Alcohol Frequency 00:00:00 00:00:00 [place] M edical [facility] History SDOH 2020-06-27 2020-06-27 99 University o f Alcohol Std 00:00:00 00:00:00 [place] [facility] Drinks Branch History SDOH 2020-06-27 2020-06-27 99 University o f Alcohol Binge 00:00:00 00:00:00 [place] [facility] al [facility] Alcohol Comment 2020-06-27 2020-06-27 on occassion, Univer sity of 00:00:00 00:00:00 liquor and beer [place] [facility] ical on occassions. Branch Sex Assigned At [birth year] Universit y of 00:00:00 00:00:00 [facility] Smoking Status Start Date Stop Date Source Never smoked tobacco [facility] Medications Ordered Filled Start Stop Current [...] 04/27/22 at 0300, Routine tranexamic 2021-06- Yes [id number] 1300mg Take 2 Univers acid 650 mg 06-27 100 tablets by i ty of tablet 00:00: 05:59 mouth in [place] 00 :00 the Medical morning Branch and 2 tablets at noon and 2 tablets in the evening. Do all this for 5 days. norelgestro 2021-0 Yes [id number] 1{patch Apply 1 Univers min-ethinyl 7-12 } Patch to ity of estradiol 00:00: [facility] 00 weekly. Medical 150-35 For 3 Branch mcg/24 hr weeks, patch followed by 1 week no ptach norelgestro 2021-0 Yes [id number] 1{patch Apply 1 Univers min-ethinyl 7-12 } Patch to ity of estradiol 00:00: [facility] 00 weekly. Medical 150-35 For 3 Branch mcg/24 hr weeks, patch followed by 1 week no ptach norelgestro 2021-0 Yes [id number] 1{patch Apply 1 Univers min-ethinyl 7-12 } Patch to ity of estradiol 00:00: [facility] 00 weekly. Medical 150-35 For 3 Branch mcg/24 hr weeks, patch followed by 1 week no ptach norelgestro 2022-0 Yes [id number] 1{patch Apply 1 Univers min-ethinyl 7-12 } Patch to ity of estradiol 00:00: [facility] 00 weekly. Medical 150-35 For 3 Branch mcg/24 hr weeks, patch followed by 1 week no ptach norelgestro 2022-0 Yes [id number] 1{patch Apply 1 Univers min-ethinyl 7-12 } Patch to ity of estradiol 00:00: [facility] 00 weekly. Medical 150-35 For 3 Branch mcg/24 hr weeks, patch followed by 1 week no ptach norelgestro 2022-0 Yes [id number] 1{patch Apply 1 Univers min-ethinyl 7-12 } Patch to ity of estradiol 00:00: [facility] 00 weekly. Medical 150-35 For 3 Branch mcg/24 hr weeks, patch followed by 1 week no ptach norelgestro 2022-0 Yes [id number] 1{patch Apply 1 Univers min-ethinyl 7-12 } Patch to ity of estradiol 00:00: [facility] 00 weekly. Medical 150-35 For 3 Branch mcg/24 hr weeks, patch followed by 1 week no ptach norelgestro 2022-0 Yes [id number] 1{patch Apply 1 Univers min-ethinyl 7-12 } Patch to ity of estradiol 00:00: [facility] 00 weekly. Medical 150-35 For 3 Branch mcg/24 hr weeks, patch followed by 1 week no ptach norelgestro 2022-0 2022- No [id number] 1{patch Apply 1 Univers min-ethinyl 7-12 11-07 } Patch to ity of estradiol 00:00: 00:00 [facility] 00 :00 weekly. Medical 150-35 For 3 Branch mcg/24 hr weeks, patch followed by 1 week no ptach cetirizine Yes Take by Univ ers HCl (ZYRTEC 1-07 mouth. ity of ORAL) 15:45: [address] cetirizine Yes Take by Univ ers HCl (ZYRTEC 1-07 mouth. ity of ORAL) 15:45: [address] cetirizine Yes Take by Univ ers HCl (ZYRTEC 1-07 mouth. ity of ORAL) 15:45: [address] cetirizine Yes Take by Univ ers HCl (ZYRTEC 1-07 mouth. ity of ORAL) 15:45: [address] cetirizine Yes Take by Univ ers HCl (ZYRTEC 1-07 mouth. ity of ORAL) 15:45: [address] cetirizine Yes Take by Univ ers HCl (ZYRTEC 1-07 mouth. ity of ORAL) 15:45: [address] cetirizine Yes Take by Univ ers HCl (ZYRTEC 1-07 mouth. ity of ORAL) 15:45: [address] cetirizine 0 Yes Take by Univ ers HCl (ZYRTEC 1-07 mouth. ity of ORAL) 15:45: [address] cetirizine Yes Take by Univ ers HCl (ZYRTEC 1-07 mouth. ity of ORAL) 15:45: [address] Immunizations Ordered Filled Immunization Date Status Comments Sour e Immunization Name Name HPV9 2020-06-27 Completed University of 00:00:00 [facility] HPV9 2020-06-27 Completed University of 00:00:00 [facility] HPV9 2020-06-27 Completed University of 00:00:00 [facility] HPV9 2020-06-27 Completed University of 00:00:00 [facility] HPV9 2020-06-27 Completed University of 00:00:00 [facility] HPV9 2020-06-27 Completed University of 00:00:00 [facility] HPV9 2020-06-27 Completed University of 00:00:00 [facility] HPV9 2020-06-27 Completed University of 00:00:00 [facility] HPV9 2020-06-27 Completed University of 00:00:00 [facility] TDAP 2017-12-21 Completed University of 00:00:00 [facility] TDAP 2017-12-21 Completed University of 00:00:00 [facility] TDAP 2017-12-21 Completed University of 00:00:00 [facility] TDAP 2017-12-21 Completed University of 00:00:00 [facility] TDAP 2017-12-21 Completed University of 00:00:00 [facility] TDAP 2017-12-21 Completed University of 00:00:00 [facility] TDAP 2017-12-21 Completed University of 00:00:00 [facility] TDAP 2017-12-21 Completed University of 00:00:00 [facility] TDAP 2017-12-21 Completed University of 00:00:00 [facility] TDAP 2016-07-09 Completed University of 00:00:00 [facility] TDAP 2016-07-09 Completed University of 00:00:00 [facility] TDAP 2016-07-09 Completed University of 00:00:00 [facility] TDAP 2016-07-09 Completed University of 00:00:00 [facility] TDAP 2016-07-09 Completed University of 00:00:00 [facility] TDAP 2016-07-09 Completed University of 00:00:00 [facility] TDAP 2016-07-09 Completed University of 00:00:00 [facility] TDAP 2016-07-09 Completed University of 00:00:00 [facility] TDAP 2016-07-09 Completed University of 00:00:00 [facility] Influenza Virus 2016-03-25 Completed Universit y of Vaccine Quad IM 3+ 00:00:00 [facility] Influenza Virus 2016-03-25 Completed Universit y of Vaccine Quad IM 3+ 00:00:00 [facility] Influenza Virus 2016-03-25 Completed Universit y of Vaccine Quad IM 3+ 00:00:00 [facility] Influenza Virus 2016-03-25 Completed Universit y of Vaccine Quad IM 3+ 00:00:00 [facility] Influenza Virus 2016-03-25 Completed Universit y of Vaccine Quad IM 3+ 00:00:00 [facility] Influenza Virus 2016-03-25 Completed Universit y of Vaccine Quad IM 3+ 00:00:00 [facility] Influenza Virus 2016-03-25 Completed Universit y of Vaccine Quad IM 3+ 00:00:00 [facility] Influenza Virus 2016-03-25 Completed Universit y of Vaccine Quad IM 3+ 00:00:00 [facility] Influenza Virus 2016-03-25 Completed Universit y of Vaccine Quad IM 3+ 00:00:00 [facility] Vital Signs Vital Name Observation Time Observation Value Comments Source Respiratory rate 2022-04-27 08:02:00 18 /min [facility] Body height 2022-04-27 08:02:00 170.2 cm General acute hospital Body weight 2022-04-27 08:02:00 91.173 kg General acute hospital BMI 2022-04-27 08:02:00 31.48 kg/m2 General acute hospital Oxygen saturation in 2022-04-27 08:02:00 99 /min [facility] Arterial blood by [facility] Pulse oximetry Branch Systolic blood 2022-04-27 08:02:00 121 mm[Hg] Univer sity of pressure [place] [facility] Diastolic blood 2022-04-27 08:02:00 82 mm[Hg] Unive rsity of pressure [place] [facility] Heart rate 2022-04-27 08:02:00 85 /min Universi ty [facility] [place] [facility] Body temperature 2022-04-27 08:02:00 37.06 Sandhya Univ ersity of [place] [facility] Systolic blood 2022-04-18 16:19:00 103 mm[Hg] Univer sity of pressure [place] [facility] Diastolic blood 2022-04-18 16:19:00 69 mm[Hg] Unive rsity of pressure [place] [facility] Heart rate 2022-04-18 16:19:00 84 /min Universi ty [facility] [place] [facility] Body temperature 2022-04-18 16:19:00 36.5 Sandhya Univ ersity of [place] [facility] Respiratory rate 2022-04-18 16:19:00 20 /min Univ ersity of [place] [facility] Body height 2022-04-18 16:19:00 170.2 [...] 2022-04-02 18:22:00 18 /min Univ ersity of [place] [facility] Body height 2022-04-02 18:22:00 170.2 cm [facility] [place] [facility] Body weight 2022-04-02 18:22:00 92.59 kg [facility]i [facility] [place] [facility] BMI 2022-04-02 18:22:00 31.97 kg/m2 [facility] [place] [facility] Procedures Procedure Date / Time Performing Clinician Source Performed CBC WITH DIFF 2022-04-27 08:22:00 Joanne Melissa [facility] POCT TEST 2022-04-27 08:22:00 Joanne Melissa [facility] NOTICE OF PRIVACY 2022-04-27 07:55:47 [facility], [facility] CONSENT/REFUSAL FOR 2022-04-27 07:54:13 Doctor Unassigned, [facility] EXTERNAL PROVIDER 2022-04-03 05:01:00 Doctor Unassigned, No Univ ersity of [place] RECORDS Name [facility] POCT TEST 2022-04-02 19:31:00 Louise Prado [facility] THYROID STIMULATING 2022-04-02 19:05:00 Louise Prado [facility] Encounters Start End Encounter Admission Attending Care Care Encounter Source Date/Time Date/Time Type Type Clinicians Facility Department ID 2021-04-22 Emergency [facility] [id number] Univers 01:27:59 ity [facility] 2021-04-21 Emergency [facility] [id number] Univers [facility]18 Emergency [facility] [id number] Univers [facility]:43[facility] 2022-05-23 2022-05-23 Outpatient R [facility] [id number] Univers 10:30:00 10:30:[facility] 2022-05-01 2022-05-01 Outpatient R LAVON [facility] [id number] Univers 08:00:00 08:00:00 [facility] 2022-04-30 2022-04-30 Outpatient R CASE [facility] [id number] Univers 07:45:00 07:45:00 WILBERT maldonado o f [facility] 2022-04-27 2022-04-27 Emergency X ERIKA [facility] ERT [id number] Univers 02:06:00 02:53:00 [facility] 2022-04-27 2022-04-27 [facility] [id number] Univers 02:06:00 02:53:00 Winifred PATE [id number] ity of [place] [id number] [facility] [id number] [facility] 084 [place] 2022-04-27 2022-04-27 Orders Doctor BRONWYN 1.2.840.114 [id number] Univers 00:00:00 00:00:00 Only Unassigned, FAUSTO [id number] ity of [place] [facility] [id number] Rodney as [id number] [facility] 009 [place] 2022-04-18 2022-04-18 Outpatient R EVARISTO [facility] [id number] Univers 10:45:00 11:50:36 SULEIMAN [facility] 2022-04-18 2022-04-18 Office Provider, RadhaRmchjacki [facility] 1 .2.840.114 [id number] Univers 10:45:00 11:50:36 Visit Suleiman Jarvis LIFE ADVISOR [id number] ity of [facility] [id number] Rodney as MATERNAL [phone] Med ical & CHILD [address] [place] [address] 2022-04-17 2022-04-17 Telephone [facility] 1.2.840.114 [id number] Univers 00:00:00 00:00:00 Pete Piedra LIFE ADVISOR [id number] ity of [facility] [id number] Rodney as MATERNAL [phone] [facility] ical & CHILD [address] [place] [address] 2022-04-16 2022-04-16 Outpatient Alannah DOLL [facility] [id number] Univers 12:45:00 12:45:00 YESSENIA [facility] 2022-04-03 2022-04-03 Orders Doctor BRONWYN 1.2.840.114 [id number] Univers 00:00:00 00:00:00 Only Unassigned, FAUSTO [id number] ity of [place] [facility] [id number] Rodney as [id number] [address] 2022-04-02 2022-04-02 Outpatient R JANKI [facility] [id number] Univers 12:45:00 14:18:13 LOUISE maldonado [facility] 2022-04-02 2022-04-02 Office Provider, Noah Cisneros [facility] 1 .2.840.114 [id number] Univers 12:45:00 14:18:13 Visit Wilbert Willoughby LIFE ADVISOR [id number] ity [facility] [id number] [place] MATERNAL [id number] [facility] & CHILD [address] [place] [address] 2022-04-01 2022-04-01 Outpatient R CASE [facility] [id number] Univers 09:00:00 09:00:00 WILBERT sutherland [facility] 2022-01-21 2022-01-21 Outpatient R ROMAN [facility] [id number] Univers 13:15:00 13:15:00 PETE sutherland [facility] 2022-01-16 2022-01-16 [facility] 1.2.840.114 [id number] Univers 00:00:00 00:00:00 Jamie Francis LIFE ADVISOR [id number] i ty of [facility] [id number] Rodney as MATERNAL [id number] [facility] & CHILD [address] [place] [address] 2022-01-15 2022-01-15 Patient Doctor BRONWYN 1.2.840.114 [id number] Univers 00:00:00 00:00:00 Secure Msg Unassigned, FAUSTO [id number] ity of [place] [facility] [id number] Rodney as [id number] [facility] 019 [place] 2022-01-14 2022-01-14 Outpatient GUY GONZALEZ 899 [place] 00:00:00 00:00:00 SSA 0727 [facility] 2021-12-31 2021-12-31 Telephone Sydnie [facility] 1.2.840.114 [id number] Univers 00:00:00 00:00:00 Jamie Francis LIFE ADVISOR [id number] i ty of [facility] [id number] Rodney as MATERNAL [id number] [facility] & CHILD [address] [place] [address] 2021-12-31 2021-12-31 Telephone [facility] [id number] Univers 00:00:00 00:00:00 Samya R LIFE ADVISOR [id number] ity of [facility] [id number] Rodney as MATERNAL [id number] [facility] & CHILD [address] [place] [address] 2021-12-30 2021-12-30 Office Provider, Noah Cisneros [facility] 1 .2.840.114 [id number] Univers 14:30:00 16:19:20 Visit Jamie Wall LIFE ADVISOR [id number] ity of [facility] [id number] Rodney as MATERNAL [id number] [facility] & CHILD [address] [place] [address] 2021-12-30 2021-12-30 Outpatient R JAMIE WALL [facility] [id number] Univers 14:30:00 16:19:20 JAMIE WALL [facility] 2021-12-30 2021-12-30 Outpatient R JAMIE WALL [facility] [id number] Univers 14:30:00 14:30:00 JAMIE WALL [facility] 2021-12-18 2021-12-18 Outpatient Alannah WILLOUGHBY [facility] [id number] Univers 09:45:00 09:45:00 GRANTNDA itanna o f [facility] 2021-12-03 2021-12-03 Outpatient Alannah WILLOUGHBY [facility] [id number] Univers 13:00:00 13:00:00 GRANTNDA ity o f [facility] 2021-12-02 2021-12-02 [facility] [id number] Univers 00:00:00 00:00:00 Samya R LIFE ADVISOR [id number] ity of [facility] [id number] Rodney as MATERNAL [id number] [facility] & CHILD [address] [place] [address] 2021-12-01 2021-12-01 Outpatient R CASE [facility] [id number] Univers 13:30:00 13:30:00 WILBERT maldonado o ntaali [facility] 2021-12-01 2021-12-01 Outpatient R CASE [facility] [id number] Univers 13:30:00 13:30:00 WILBERT maldonado o [facility] 2021-11-13 2021-11-13 Telephone [facility] [id number] Univers 00:00:00 00:00:00 [facility] LIFE ADVISOR [id number] ity of [facility] [id number] Rodney as MATERNAL [id number] [address] 2021-11-11 2021-11-11 [facility] [id number] Univers 14:45:00 16:08:19 [facility] 2021-11-11 2021-11-11 Office [facility] 1.2.840.114 [id number] Univers 14:45:00 16:08:19 Visit [facility] Alannah LIFE ADVISOR [id number] ity of [facility] [id number] Rodney as MATERNAL [id number] [facility] & CHILD [address] [place] [address] 2021-11-11 2021-11-11 Orders Doctor BARNHART 1.2.840.114 [id number] Univers 00:00:00 00:00:00 Only Unassigned, FAUSTO [id number] ity of [place] [facility] [id number] Rodney as [id number] [address] 2021-03-21 2021-03-21 Outpatient R ROMAN [facility] [id number] Univers 14:45:00 14:45:00 PETE saqibanna o [facility] 2021-03-20 2021-03-20 Telephone [facility] 1.2.840.114 [id number] Univers 00:00:00 00:00:00 Pete Piedra LIFE ADVISOR [id number] [facility] [id number] Rodney as MATERNAL [id number] [facility] ical & CHILD [address] [place] [address] 2021-03-19 2021-03-19 Outpatient Alannah BENAVIDEZ [facility] [id number] Univers 14:45:00 14:45:00 JAMIE saqibanna [facility] 2021-03-18 2021-03-18 Outpatient [facility] [id number] Univers 15:15:00 15:15:00 JAMIE anna [facility] 2021-03-16 2021-03-17 Emergency Sam Kemp [facility] 1.2.840.114 [id number] Univers 22:39:00 01:20:00 Salina Pate 350.1.13.10 i ty [facility] [id number] [facility] [id number] [address] 2021-02-20 2021-02-20 Telephone Lara Atkinson 1.2.840.114 [id number] Univers 00:00:00 00:00:00 FAUSTO [id number] it y of [facility] [id number] Rodney as [id number] [address] 2021-02-19 2021-02-19 Emergency Belén [facility] [id number] [id number] Univers 02:37:00 03:44:00 Billsawdnaiel Puja Pate 350.1.13.10 ity [facility] 4.2.7.2.686 [facility] [id number] [address] 2020-09-10 2020-09-10 Patient Rolando MSCHERYL 1.2.840.114 [id number] 00:00:00 00:00:00 Outreach Juan MOODY [id number] [facility] 4.2.7.2.686 PAVILLION [id number] 2020-09-10 2020-09-10 Patient Rolando [facility] 1.2.840.114 [id number] Univers 00:00:00 00:00:00 Outreach Juan PRIMARY 350.1.13.10 i ty of [facility] 4.2.7.2.686 Kip QUINN [id number] [address] 2020-08-27 2020-08-27 Outpatient [facility] [id number] Univers 10:30:00 10:30:00 ROSSTEPHENNDA ity o [facility] 2020-08-26 2020-08-26 Outpatient R [facility] [id number] Univers 13:30:00 13:30:00 ity of [facility] 2020-07-11 2020-07-11 [facility] [id number] Univers 13:15:00 13:15:00 MCKINLEYNDA ity o [facility] 2020-06-27 2020-06-27 Office [facility] 1.2.840.114 [id number] 15:21:42 16:19:38 Visit [facility] LIFE ADVISOR 350.1.13.10 [facility] 4.2.7.2.686 MATERNAL [id number] & CHILD [address] [place] [address] 2020-06-27 2020-06-27 Office [facility] 1.2.840.114 [id number] Univers 15:21:42 16:19:38 Visit [facility] LIFE ADVISOR 350.1.13.[address] [facility] [id number] Rodney as MATERNAL [id number] Med ical & CHILD [address] [place] [address] 2020-06-27 2020-06-27 Outpatient Alannah WILLOUGHBY [facility] [id number] Univers 15:30:00 15:30:00 GRANTNDA ity o [facility] 2020-06-05 2020-06-05 [facility] [id number] Univers 15:15:00 15:15:00 ROSSTEPHENNDA ity o f [facility] 2020-03-27 2020-03-28 Emergency Sam Kemp [facility] 1.2.840.114 [id number] Univers 19:22:00 00:39:00 [place]ina [place] 350.1.13.10 i ty of [place] 4.2.7.2.686 [facility] [id number] [address] 2019-12-05 2019-12-05 Emergency [facility] [id number] Univers 01:22:11 03:48:00 Radha Pate 350.1.13.10 ity of [place] 4.2.7.2.686 [facility] [id number] [address] 2019-12-05 2019-12-05 Emergency X [facility] ERT [id number] Univers 01:22:11 03:48:00 RADHA maldonado [facility] 2019-11-15 2019-11-16 Emergency Sam Kemp [facility] 1.2.840.114 [id number] Univers 19:21:57 00:00:00 Salina Pate 350.1.13.10 i ty of [place] 4.2.7.2.6 [facility] [id number] [address] 2019-11-15 2019-11-16 Emergency X Sam KEMP [facility] ERT [id number] Univers 19:21:57 00:00:00 ity of [facility] [facility] 2019-10-19 2019-10-19 [facility] [id number] Univers 04:35:17 06:17:00 Luisa Pate [id number] i ty of [place] 4.2.7.[address] [place] [id number] 2019-10-19 2019-10-19 Emergency Genet LUNA [facility] ERT [id number] Univers 04:35:17 06:17:00 LUISA ity [facility] 2019-08-31 2019-08-31 [facility] [id number] Univers 03:53:07 05:03:00 Jessica Pate [id number] i ty of [place] [id number] [facility] [id number] [address] 2019-08-31 2019-08-31 Emergency [facility] [id number] Univers 03:53:07 05:03:00 JESSICA ity [facility] 2019-06-09 2019-06-09 Emergency X BETO III, [facility] ERT [id number] Univers 16:17:18 19:21:00 MANAN itanna [facility] 2019-01-29 2019-01-29 Emergency Beto, [facility] [id number] Univers 15:09:14 18:22:00 Manan A Nelli [id number] i ty of [place] [id number] [facility] [id number] [facility] [address] 2019-01-29 2019-01-29 Orders Doctor BRONWYN [id number] Univers 00:00:00 00:00:00 Only Unassigned, FAUSTO [id number] ity [place] [facility] [id number] [facility] [phone] [facility] [address] [place] Results Test Description Test Time Test Comments Results Result Comments Source POCT TEST 2022-04-27 08:22:00 Test Item Value Reference Range Interpretation Comme nts POCT PREG (test code = 1605) neg On board controls acceptable with C Line (test code = 3574) yes POCT PREG LOT # (test code = 3575) [id number] POCT PREG TEST DATE (test code = 3576) 09/19/2023 Lab Interpretation (test code = 98701-8) Normal [facility] [id number] 06:28:56 Test Item Value Reference Range Interpretation Comments TSH (test code = See_Comment Biotin has been [id number]) reported to cau se a negative bias, interpret resul ts relative to gayle hughes's use of biotin. [Automated mess age] The system Ves[employer] h generated this result transmitted ref erence range: 0.45 - 4 .70 mIU/L. The refe rence range was not u sed to interpret this result as normal/abnor mal. Lab Interpretation (test Normal code = 85694-0) [facility] [id number] 06:28:56 Test Item Value Reference Range Interpretation Comments TSH (test code = See_Comment Biotin has been [id number]) reported to cau se a negative bias, interpret resul ts relative to pat saul's use of biotin. [Automated mess age] The system [employer] generated this result transmitted ref erence range: 0.45 - 4 .70 mIU/L. The refe rence range was not u sed to interpret this result as normal/abnor mal. Lab Interpretation (test Normal code = 00030-0) [facility] [id number] 19:31:00 Test Item Value Reference Range Interpretation Comments POCT PREG (test code = 1605) Negative On board controls acceptable with C Yes Line (test code = 3574) POCT PREG LOT # (test code = 3575) POCT PREG TEST DATE (test code = 3576) [facility] [id number] 19:31:00 Test Item Value Reference Range Interpretation Comments POCT PREG (test code = 1605) Negative On board controls acceptable with C Yes Line (test code = 3574) POCT PREG LOT # (test code = 3575) POCT PREG TEST DATE (test code = 3576) [facility]
[2022-05-17] MEDS ORDERED: ONDANSETRON 4 MG/2 ML VIAL ONE (21:18)
[2022-05-17] MEDS ORDERED: ALBUTEROL 2.5 MG/3 ML NEB SOL ONE (21:18)
[2022-05-17] MEDS ORDERED: METHYLPREDNISOLONE 125 MG INJ ONE (21:18)
[2022-05-17] MEDS ORDERED: NA CHLORIDE 0.9% 1,000 ML ONE (21:19)
[2022-05-17] MEDS ORDERED: IPRATROPIUM BROM 0.5MG/2.5ML ONE (21:19)
--- NOTE | 2022-05-17 21:24 | RAD REPORT ---
EXAM DESCRIPTION: Ed Single View05/17/2022 9:07 pm CLINICAL HISTORY: Cough COMPARISON: April 21, 2022 FINDINGS: The lungs appear clear of acute infiltrate. The heart is normal size IMPRESSION: No acute abnormalities displayed
[2022-05-17 21:42] LABS: Absolute Lymphocytes (CBC) 1.4 K/uL (0.7-4.9); Hematocrit 36.1 % (36.0-45.0); Lymphocytes % 20.2 % (15.3-44.8); MPV 8.3 fL (7.6-11.3); RBC Red Blood Cell Count 4.25 M/uL (3.86-4.86)
[2022-05-17 22:03] LABS: Albumin 3.5 g/dL (3.4-5.0); Bilirubin Total 0.2 mg/dL (0.2-1.0); Potassium 3.6 mmol/L (3.5-5.1); Protein, Total 7.6 g/dL (6.4-8.2)
--- NOTE | 2022-05-17 22:13 | EDPHYS ---
Physician Documentation [facility] Name: Elba Wells Age: 26 yrs Sex: Female : 1995 Arrival Date: 05/17/2022 Time: 20:24 Bed Treatment Private MD: ED Physician Merrick Pina HPI: 05/17 21:04 This 26 yrs old Female presents to ER via Ambulatory with complaints of rt Breathing Difficulty, Chest Pain. 21:04 The patient has shortness of breath at rest. Onset: The symptoms/episode began/occurred rt 5 day(s) ago, and became worse. Duration: The symptoms are continuous. The patient's shortness of breath has no apparent modifying factors. Associated signs and symptoms: Pertinent positives: non-productive cough, nausea, vomiting. Severity of symptoms: At their worst the symptoms were moderate. Patient has had cough, congestion symptoms since Wednesday, was seen in the ED on Wednesday, diagnosed with influenza. Patient states that she has had a worsening cough, nausea, vomiting, diarrhea. Patient states that she is feeling weak. She states that she has a pleuritic chest pain. She states that her inhalers have not adequately improved her symptoms. Denies other acute complaints at this time or other aggravating alleviating factors. She has been taking Bromfed, albuterol, ibuprofen.. 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 Last tetanus immunization: up to date. - Social history:: Smoking status: Patient reports the use of cigarette tobacco products, denies chronic smoking, but will smoke occasionally. - Family history:: not pertinent. ROS: 21:04 Constitutional: Negative for fever, chills, and weight loss, Eyes: Negative for injury, rt pain, redness, and discharge, ENT: Negative for injury, pain, and discharge, Neck: Negative for injury, pain, and swelling, MS/Extremity: Negative for injury and deformity, Skin: Negative for injury, rash, and discoloration, Neuro: Negative for headache, weakness, numbness, tingling, and seizure, Psych: Negative for depression, anxiety, suicide ideation, homicidal ideation, and hallucinations. 21:04 Cardiovascular: Positive for chest pain, Negative for edema. 21:04 Respiratory: Positive for cough, shortness of breath. 21:04 Abdomen/GI: Positive for nausea, vomiting, Negative for abdominal pain. Exam: 21:04 Constitutional: This is a well developed, well nourished patient who is awake, alert, rt and in no acute distress. Head/Face: Normocephalic, atraumatic. Eyes: Pupils equal round and reactive to light, extra-ocular motions intact. Lids and lashes normal. Conjunctiva and sclera are non-icteric and not injected. Cornea within normal limits. Periorbital areas with no swelling, redness, or edema. ENT: Nares patent. No nasal discharge, no septal abnormalities noted. Tympanic membranes are normal and external auditory canals are clear. Oropharynx with no redness, swelling, or masses, exudates, or evidence of obstruction, uvula midline. Mucous membranes moist. Chest/axilla: Normal chest wall appearance and motion. Nontender with no deformity. No lesions are appreciated. Cardiovascular: Regular rate and rhythm with a normal S1 and S2. No gallops, murmurs, or rubs. Normal PMI, no JVD. No pulse deficits. Respiratory: Lungs have equal breath sounds bilaterally, clear to auscultation and percussion. No rales, rhonchi or wheezes noted. No increased work of breathing, no retractions or nasal flaring. Abdomen/GI: Soft, non-tender, with normal bowel sounds. No distension or tympany. No guarding or rebound. No evidence of tenderness throughout. Skin: Warm, dry with normal turgor. Normal color with no rashes, no lesions, and no evidence of cellulitis. MS/ Extremity: Pulses equal, no cyanosis. Neurovascular intact. Full, normal range of motion. Neuro: Awake and alert, GCS 15, oriented to person, place, time, and situation. Cranial nerves II-XII grossly intact. Motor strength 5/5 in all extremities. Sensory grossly intact. Cerebellar exam normal. Normal gait. Psych: Awake, alert, with orientation to person, place and time. Behavior, mood, and affect are within normal limits. 22:21 ECG was reviewed by the Attending Physician. rt Vital Signs: 20:36 BP 135 / 85; Pulse 115; Resp 20; Temp 98.8; Pulse Ox 98% ; Weight 90.72 kg; Height 5 kb3 ft. 7 in. (170.18 cm); Pain 10/10; 20:36 Body Mass Index 31.32 (90.72 kg, 170.18 cm) kb3 MDM: 20:45 Patient medically screened. rt 22:17 Differential diagnosis: asthma, Bronchitis pneumonia, Pneumothorax pulmonary edema, rt Pulmonary Embolism. Data reviewed: vital signs, nurses notes, lab test result(s), EKG, radiologic studies. ED course: Patient who has known influenza infection presents to the ED with cough, pleuritic chest pain, nausea. The patient has a nonischemic EKG. The patient's presentation is not consistent with an acute coronary syndrome, pulmonary embolism. Symptoms are improving and patient is p.o. tolerant after Zofran, read treatments and steroids. Will give patient round of steroids her breathing, she is to continue taking her home breathing treatments. Will send patient with Zofran. She is stable for outpatient care, no further work-up is indicated at this time, return precautions discussed. 05/17 20:56 Order name: CBC with Diff; Complete Time: 22:07 rt 05/17 20:56 Order name: CMP; Complete Time: 22:07 rt 05/17 20:56 Order name: Chest Single View XRAY; Complete Time: 21:27 rt 05/17 20:56 Order name: EKG; Complete Time: 20:57 rt 05/17 20:56 Order name: EKG - Nurse/Tech; Complete Time: 22:24 rt EC:21 Rate is 79 beats/min. Rhythm is regular, Normal Sinus Rhythm with PACs. QRS [address] is rt Normal. [place] interval is normal. QRS interval is normal. QT interval is normal. No Q waves. T waves are Normal. No ST changes noted. Clinical impression: Normal ECG. Interpreted by me. Administered Medications: 21:36 Drug: NS 0.9% 1000 ml Route: IV; Rate: 1 bolus; Site: right antecubital; hb 22:24 Follow up: IV Status: Completed infusion; IV Intake: 850ml aa9 21:36 Drug: Zofran (Ondansetron) 4 mg Route: IVP; Site: right antecubital; hb 22:24 Follow up: Response: No adverse reaction aa9 21:36 Drug: MethylPrednisoLONE 125 mg Route: IVP; Site: right antecubital; hb 22:25 Follow up: Response: No adverse reaction aa9 21:36 Drug: DuoNeb (albuterol 2.5 mg, ipratropium 0.5 mg) (3:1) (2.5 mg - 0.5 mg) 3 ml Route: hb Nebulizer; 22:25 Follow up: Response: No adverse reaction aa9 Disposition Summary: 05/17/22 22:11 Discharge Ordered Location: Home rt Problem: an ongoing problem rt Symptoms: have improved rt Condition: Stable rt Diagnosis - Influenza due to identified novel influenza A virus rt Followup: rt - With: Private Physician - When: 2 - 3 days - Reason: Discharge Instructions: - Discharge Summary Sheet rt - Influenza, Adult rt Forms: - Medication Reconciliation Form rt - Thank You Letter rt - Antibiotic Education rt - Prescription Opioid Use rt Prescriptions: - Zofran 4 mg Oral Tablet - take 1 tablet by ORAL route every 6 hours As needed; 21 tablet; Refills: 0, rt Product Selection Permitted - Prednisone 20 mg Oral Tablet - take 2 tablets by ORAL route once daily for 5 days; 10 tablet; Refills: 0, rt Product Selection Permitted Signatures: Dispatcher [employer] Jade Lee RN RN Kamila Hamm RN RN kb3 Merrick Pina MD MD rt Erendira Daly RN aa9
--- NOTE | 2022-05-17 22:13 | ER ---
Nurse's Notes [facility] Name: Elba Wells Age: 26 yrs Sex: Female : 1995 Arrival Date: 05/17/2022 Time: 20:24 Bed Treatment Private MD: Diagnosis: Influenza due to identified novel influenza A virus Presentation: 05/17 20:36 Chief complaint: Patient states: she was diagnosed with flu on Wednesday and feels worse. kb3 States she continues to cough and feels very congested. Reports she cannot breathe well. Coronavirus screen: Vaccine status: Patient reports being unvaccinated. Client denies travel out of the [place] in the last 14 days. Ebola Screen: Patient negative for fever greater than or equal to 101.5 degrees Fahrenheit, and additional compatible Ebola Virus Disease symptoms Patient denies exposure to infectious person. Patient denies travel to an Ebola-affected area in the 21 days before illness onset. Initial Sepsis Screen: Does the patient meet any 2 criteria? No. Patient's initial sepsis screen is negative. Does the patient have a suspected source of infection? No. Patient's initial sepsis screen is negative. Risk Assessment: Do you want to hurt yourself or someone else? Patient reports no desire to harm self or others. Onset of symptoms was May 15, 2022. 20:36 Method Of Arrival: Ambulatory kb3 20:36 Acuity: CED 4 kb3 Triage Assessment: 20:38 General: Appears uncomfortable, ill, Behavior is calm, cooperative. Pain: Complains of kb3 pain in head, chest, abdomen, right arm, left arm, right leg and left leg Pain does not radiate. Pain currently is 10 out of 10 on a pain scale. Quality of pain is described as aching. Respiratory: Reports shortness of breath cough that is Onset: The symptoms/episode began/occurred 2 days ago, the patient has mild shortness of breath. 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 Last tetanus immunization: up to date. - Social history:: Smoking status: Patient reports the use of cigarette tobacco products, denies chronic smoking, but will smoke occasionally. - Family history:: not pertinent. Screenin:37 Abuse screen: Denies threats or abuse. Denies injuries from another. Nutritional hb screening: No deficits noted. Tuberculosis screening: No symptoms or risk factors identified. Fall Risk None identified. Assessment: 21:37 General: Appears in no apparent distress. Behavior is calm, cooperative. Neuro: Level hb of Consciousness is awake, alert, obeys commands, Oriented to person, place, time, situation. Cardiovascular: Patient's skin is warm and dry. Respiratory: Respiratory effort is even, unlabored, Respiratory pattern is regular, symmetrical. GI: No signs and/or symptoms were reported involving the gastrointestinal system. : No signs and/or symptoms were reported regarding the genitourinary system. EENT: No signs and/or symptoms were reported regarding the EENT system. Derm: Skin is pink, warm \T\ dry. Musculoskeletal: No signs and/or symptoms reported regarding the musculoskeletal system. 22:25 Reassessment: Patient appears in no apparent distress at this time. pt understood aa9 discharge instructions. Vital Signs: 20:36 BP 135 / 85; Pulse 115; Resp 20; Temp 98.8; Pulse Ox 98% ; Weight 90.72 kg; Height 5 kb3 ft. 7 in. (170.18 cm); Pain 10/10; 20:36 Body Mass Index 31.32 (90.72 kg, 170.18 cm) kb3 ED Course: 20:24 Patient arrived in ED. bp1 20:38 Triage completed. kb3 20:38 Arm band placed on right wrist. kb3 20:41 Merrick Pina MD is Attending Physician. rt 21:09 Chest Single View XRAY In Process Unspecified. EDMS 21:15 Jade Moraes, RN is Primary Nurse. hb 21:22 Inserted saline lock: 20 gauge in right antecubital area, using aseptic technique. hb Blood collected. 21:38 Patient has correct armband on for positive identification. hb 22:25 No provider procedures requiring assistance completed. IV discontinued, intact, aa9 bleeding controlled, No redness/swelling at site. Pressure dressing applied. Administered Medications: 21:36 Drug: NS 0.9% 1000 ml Route: IV; Rate: 1 bolus; Site: right antecubital; hb 22:24 Follow up: IV Status: Completed infusion; IV Intake: 850ml aa9 21:36 Drug: Zofran (Ondansetron) 4 mg Route: IVP; Site: right antecubital; hb 22:24 Follow up: Response: No adverse reaction aa9 21:36 Drug: MethylPrednisoLONE 125 mg Route: IVP; Site: right antecubital; hb 22:25 Follow up: Response: No adverse reaction aa9 21:36 Drug: DuoNeb (albuterol 2.5 mg, ipratropium 0.5 mg) (3:1) (2.5 mg - 0.5 mg) 3 ml Route: hb Nebulizer; 22:25 Follow up: Response: No adverse reaction aa9 Medication: 21:38 VIS not applicable for this client. hb Intake: 22:24 IV: 850ml; Total: 850ml. aa9 Outcome: 22:11 Discharge ordered by . rt 22:25 Discharged to home ambulatory, with family. aa9 22:25 Condition: stable 22:25 Discharge instructions given to patient, family, Instructed on discharge instructions, follow up and referral plans. medication usage, Demonstrated understanding of instructions, follow-up care, medications, Prescriptions given X 2. 22:26 Patient left the ED. aa9 Signatures: Dispatcher [employer] EDMS Jade Moraes, BALDOMERO RN Elham Mireles [facility] Erendira Daly RN RN aa9 Kamila Hamm, BALDOMERO RN kb3 Merrick Pina MD MD rt
[2022-05-17 22:50] VITALS: BP 135/85; TEMP 98.8; O2SAT 98
--- NOTE | 2022-05-18 12:49 | EKG ---
Test Date: 2022-05-17 Test Time: 22:18:33 Trench Shovel Operator: RV MEASUREMENT RESULTS: Intervals: Rate: 79 NC: 144 QRSD: 78 QT: 336 QTc: 385 [place]: P: 48 NC: 144 QRS: 83 T: 16 INTERPRETIVE STATEMENTS: Sinus rhythm with premature atrial complexes Otherwise normal ECG Compared to ECG 10/10/2021 05:22:45 Atrial premature complex(es) now present Electronically Signed On 05-18-22 12:48:02 RETAIL SALES PROFESSIONAL by Quinn Aguilar
== END 2022-05-17 22:26 | disposition home or self-care (01) ==
LOC: ER 20:21
DX: J10.1 Influenza due to other identified influenza virus with other respiratory manifestations (principal); Z91.041 Radiographic dye allergy status
CPT/HCPCS: 36415; 71045; 80053; 85025; 93005; 94640; 96361; 96374; 96375; 99284; J2405; J2930; J7030; J7613; J7644

== ENCOUNTER 2022-07-01 02:13 | Emergency (ER) | payer SELFPAY ==
--- OUTSIDE RECORDS SUMMARY | 2022-07-01 02:17 | XMS REPORT | Continuity of Care Document ---
:1995 Author Organization [facility] t Address [address] Tate [address] [place] [address] Care Team Providers Name Role Phone LAM Sheridan [facility] Primary Care P hysician Unavailable WILBERT WILLOUGHBY Attending Clinician Unavailable CM CERVANTES Attending Clinician Unavailable YESSENIA DOLL Attending Clinician Unavailable WINIFRED JAMES Attending Clinician Unavailable Winifred James NP Attending Clinician Doctor Unassigned, [place] Attending Clinician Unavailable SULEIMAN JARVIS Attending Clinician Unavailable Provider, [facility] Attending Clinician Unavailable Suleiman Connell Attending Clinician Roman Pete CERON Attending Clinician [phone] LOUISE PRADO Attending Clinician Unavailable Wilbert Downey Attending Clinician Louise Mcgovern Attending Clinician PETE PILLAI Attending Clinician Unavailable Jamie Sanders Attending Clinician INOCENCIO Attending Clinician Unavailable JAMIE WALL Attending Clinician Unavailable JAMIE BENAVIDEZ Attending Clinician Unavailable Sam Duarte Attending Clinician Lara Atkinson RN Attending Clinician Unavailable Joanne Melissa MD Attending Clinician Juan Marshall DO Attending Clinician [...] Effective Date Expiration Date Puja bobo HTW-RMCHP [id number] 2020 00:00:00 MEDICAID PENDING PENDING 2019 2019 00:00:00 00:00:00 Problems Condition Condition Condition Status Onset Resolution Last Treating Co mments Source Name Details Category Date Date Treatment Clinician Date Dysmenorrh Dysmenorrh Disease Active 2021-06 U nivmodesta ea ea 0-29 ity of 00:00: [place] 00 Medical Branch History of History of Disease Active 2021-06 U nivers breast breast 0-29 ity of pain pain 00:00: [place] 00 Medical Branch Breakthrou Breakthrou Disease Active 2021-06 U nivers gh gh 0-29 ity of bleeding bleeding 00:00: [place] on on 00 Medical contracept contracept Br anch debra patch debra patch Fibrocysti Fibrocysti Disease Active 2021-06 U nivers c breast c breast 0-14 ity of disease disease 00:00: [place] (FCBD), (FCBD), 00 Medical unspecifie unspecifie Br [...] [place] ce of 00 Medical transderma transderma Br anch l patch l patch hormonal hormonal contracept contracept debra device debra device Itching of Itching of Disease Active U nivers vagina vagina 5-24 ity of 00:00: [place] 00 Medical Branch Dysuria Dysuria Disease Active Univers 5-24 ity of 00:00: [place] [facility] Class 2 Class 2 Disease [...] Date Stop Date Quantity Comments Source ASSERTION [facility] Exposure to 2022-04-17 2022-04-27 Not sure [facility]-CoV-2 00:00:00 02:01:00 [facility] (event) Branch Alcohol intake 2022-04-27 2022-04-27 Current drinker Unive rsity of 00:00:00 00:00:00 of alcohol [facility] (finding) Branch Tobacco use and 2021-12-30 2021-12-30 Smokeless tobacco Un iversity of exposure 00:00:00 00:00:00 non-user [place] [facility] History SDOH 2020-06-27 2020-06-27 3 University o f Alcohol Frequency 00:00:00 00:00:00 [place] M edical Branch History SDOH 2020-06-27 2020-06-27 99 University o f Alcohol Std 00:00:00 00:00:00 [place] [facility] Drinks Branch History SDOH 2020-06-27 2020-06-27 99 University o f Alcohol Binge 00:00:00 00:00:00 [place] [facility] Alcohol Comment 2020-06-27 2020-06-27 on occassion, Univer sity of 00:00:00 00:00:00 liquor and beer [place] Med ical on occassions. Branch Sex Assigned At [birth year] Universit y of 00:00:00 00:00:00 [facility] Smoking Status Start Date Stop Date Source Never smoked tobacco [facility] Medications Ordered Filled Start Stop Current Ordering [...] 04/27/22 at 0300, Routine tranexamic 2021-06- Yes [id number] 1300mg Take 2 Univers acid 650 mg 06-27 100 tablets by i ty of tablet 00:00: 05:59 mouth in [place] 00 :00 the Medical morning Branch and 2 tablets at noon and 2 tablets in the evening. Do all this for 5 days. norelgestro 0 Yes [id number] 1{patch Apply 1 Univers min-ethinyl 7-12 } Patch to ity of estradiol 00:00: [facility] 00 weekly. Medical 150-35 For 3 Branch mcg/24 hr weeks, patch followed by 1 week no ptach norelgestro 2021-0 Yes [id number] 1{patch Apply 1 Univers min-ethinyl 7-12 } Patch to ity of estradiol 00:00: [facility] 00 weekly. Medical 150-35 For 3 Branch mcg/24 hr weeks, patch followed by 1 week no ptach norelgestro 2021-0 Yes [id number] 1{patch Apply 1 Univers min-ethinyl 7-12 } Patch to ity of estradiol 00:00: [facility] 00 weekly. Medical 150-35 For 3 Branch mcg/24 hr weeks, patch followed by 1 week no ptach norelgestro 2-0 Yes [id number] 1{patch Apply 1 Univers min-ethinyl 7-12 } Patch to ity of estradiol 00:00: [facility] 00 weekly. Medical 150-35 For 3 Branch mcg/24 hr weeks, patch followed by 1 week no ptach norelgestro 2-0 Yes [id number] 1{patch Apply 1 Univers min-ethinyl 7-12 } Patch to ity of estradiol 00:00: [facility] 00 weekly. Medical 150-35 For 3 Branch mcg/24 hr weeks, patch followed by 1 week no ptach norelgestro 2022-0 Yes [id number] 1{patch Apply 1 Univers min-ethinyl 7-12 } Patch to ity of estradiol 00:00: [facility] 00 weekly. Medical 150-35 For 3 Branch mcg/24 hr weeks, patch followed by 1 week no ptach norelgestro 2022-0 Yes [id number] 1{patch Apply 1 Univers min-ethinyl 7-12 } Patch to ity of estradiol 00:00: [facility] [place] [facility]) 00 weekly. Medical 150-35 For 3 Branch mcg/24 hr weeks, patch followed by 1 week no ptach norelgestro 2022-0 Yes [id number] 1{patch Apply 1 Univers min-ethinyl 7-12 } Patch to ity of estradiol 00:00: [facility] 00 weekly. Medical 150-35 For 3 Branch mcg/24 hr weeks, patch followed by 1 week no ptach norelgestro 2022-0 2022- No [id number] 1{patch Apply 1 Univers min-ethinyl 7-12 11-07 } Patch to ity of estradiol 00:00: 00:00 [facility] 00 :00 weekly. Medical 150-35 For 3 Branch mcg/24 hr weeks, patch followed by 1 week no ptach cetirizine Yes Take by Univ ers HCl (ZYRTEC 1-07 mouth. ity of ORAL) 15:45: [address] cetirizine Yes Take by Univ ers HCl (ZYRTEC 1-07 mouth. ity of ORAL) 15:45: [address] cetirizine Yes Take by Univ ers HCl (ZYRTEC 1-07 mouth. ity of ORAL) 15:45: [address] cetirizine Yes Take by Univ ers HCl (ZYRTEC 1-07 mouth. ity of ORAL) 15:45: [address] cetirizine Yes Take by Univ ers HCl (ZYRTEC 1-07 mouth. ity of ORAL) 15:45: [address] cetirizine Yes Take by Univ ers HCl (ZYRTEC 1-07 mouth. ity of ORAL) 15:45: [address] cetirizine Yes Take by Univ ers HCl (ZYRTEC 1-07 mouth. ity of ORAL) 15:45: [address] cetirizine Yes Take by Univ ers HCl (ZYRTEC 1-07 mouth. ity of ORAL) 15:45: [address] cetirizine Yes Take by Univ ers HCl (ZYRTEC 1-07 mouth. ity of ORAL) 15:45: [address] Immunizations Ordered Filled Immunization Date Status Comments [facility] e Immunization Name Name HPV9 2020-06-27 Completed University of 00:00:00 [facility] HPV9 2020-06-27 Completed University of 00:00:00 [facility] HPV9 2020-06-27 Completed University of 00:00:00 [facility] HPV9 2020-06-27 Completed University of 00:00:00 [facility] HPV9 2020-06-27 Completed University of 00:00:00 [facility] HPV9 2020-06-27 Completed University of 00:00:00 [facility] HPV9 2020-06-27 Completed University of 00:00:00 [facility] HPV9 2020-06-27 Completed University of 00:00:00 [facility] HPV9 2020-06-27 Completed University of 00:00:00 [facility] TDAP 2017-12-21 Completed University of 00:00:00 [facility] TDAP 2017-12-21 Completed University of 00:00:00 [facility] TDAP 2017-12-21 Completed University of 00:00:00 [facility] TDAP 2017-12-21 Completed University of 00:00:00 [facility] TDAP 2017-12-21 Completed University of 00:00:00 [facility] TDAP 2017-12-21 Completed University of 00:00:00 [facility] TDAP 2017-12-21 Completed University of 00:00:00 [facility] TDAP 2017-12-21 Completed University of 00:00:00 [facility] TDAP 2017-12-21 Completed University of 00:00:00 [facility] TDAP 2016-07-09 Completed University of 00:00:00 [facility] TDAP 2016-07-09 Completed University of 00:00:00 [facility] TDAP 2016-07-09 Completed University of 00:00:00 [facility] TDAP 2016-07-09 Completed University of 00:00:00 [facility] TDAP 2016-07-09 Completed University of 00:00:00 [facility] TDAP 2016-07-09 Completed University of 00:00:00 [facility] TDAP 2016-07-09 Completed University of 00:00:00 [facility] TDAP 2016-07-09 Completed University of 00:00:00 [facility] TDAP 2016-07-09 Completed University of 00:00:00 [facility] Influenza Virus 2016-03-25 Completed Universit y of Vaccine Quad IM 3+ 00:00:00 [facility] Influenza Virus 2016-03-25 Completed Universit y of Vaccine Quad IM 3+ 00:00:00 [facility] Influenza Virus 2016-03-25 Completed Universit y of Vaccine Quad IM 3+ 00:00:00 [facility] Influenza Virus 2016-03-25 Completed Universit y of Vaccine Quad IM 3+ 00:00:00 [facility] Influenza Virus 2016-03-25 Completed Universit y of Vaccine Quad IM 3+ 00:00:00 [facility] Influenza Virus 2016-03-25 Completed Universit y of Vaccine Quad IM 3+ 00:00:00 [facility] Influenza Virus 2016-03-25 Completed Universit y of Vaccine Quad IM 3+ 00:00:00 [facility] Influenza Virus 2016-03-25 Completed Universit y of Vaccine Quad IM 3+ 00:00:00 [facility] Influenza Virus 2016-03-25 Completed Universit y of Vaccine Quad IM 3+ 00:00:00 [facility] Vital Signs Vital Name Observation Time Observation Value Comments Source Respiratory rate 2022-04-27 08:02:00 18 /min General acute hospital Body height 2022-04-27 08:02:00 170.2 cm [facility] Body weight 2022-04-27 08:02:00 91.173 kg [facility] BMI 2022-04-27 08:02:00 31.48 kg/m2 [facility] Oxygen saturation in 2022-04-27 08:02:00 99 /min [facility] Arterial blood by [facility] Pulse oximetry Branch Systolic blood 2022-04-27 08:02:00 121 mm[Hg] Univer sity of pressure [place] [facility] Diastolic blood 2022-04-27 08:02:00 82 mm[Hg] Unive rsity of pressure [place] [facility] Heart rate 2022-04-27 08:02:00 85 /min Universi ty of [place] [facility] Body temperature 2022-04-27 08:02:00 37.06 Sandhya Univ ersity of [place] [facility] Systolic blood 2022-04-18 16:19:00 103 mm[Hg] Univer sity of pressure [place] [facility] Diastolic blood 2022-04-18 16:19:00 69 mm[Hg] Unive rsity of pressure [place] [facility] Heart rate 2022-04-18 16:19:00 84 /min Universi ty of [place] [facility] Body temperature 2022-04-18 16:19:00 36.5 Sandhya Univ ersity of [place] [facility] Respiratory rate 2022-04-18 16:19:00 20 /min Univ ersity of [place] [facility] Body height 2022-04-18 16:19:00 170.2 cm Universi ty of [place] [facility] Body weight 2022-04-18 16:19:00 91.491 kg Universi ty of [place] [facility] BMI 2022-04-18 16:19:00 31.59 kg/m2 Universi ty of [place] [facility] Systolic blood 2022-04-02 18:22:00 122 mm[Hg] Univer sity of pressure [place] [facility] Diastolic blood 2022-04-02 18:22:00 73 mm[Hg] Unive rsity of pressure [place] [facility] Heart rate 2022-04-02 18:22:00 74 /min Universi ty of [place] [facility] Body temperature 2022-04-02 18:22:00 36 Sandhya Univ ersity of [place] [facility] Respiratory rate 2022-04-02 18:22:00 18 /min Univ ersity of [place] [facility] Body height 2022-04-02 18:22:00 170.2 cm Universi ty of [place] [facility] Body weight 2022-04-02 18:22:00 92.59 kg Universi ty of [place] [facility] BMI 2022-04-02 18:22:00 31.97 kg/m2 Universi ty of [place] [facility] Procedures Procedure Date / Time Performing Clinician Source Performed CBC WITH DIFF 2022-04-27 08:22:00 Joanne Melissa [facility] POCT TEST 2022-04-27 08:22:00 Joanne Melissa [facility] NOTICE OF PRIVACY 2022-04-27 07:55:47 Doctor Unassigned, No Univ [facility] PRACTICES Name [facility] CONSENT/REFUSAL FOR 2022-04-27 07:54:13 [facility]igned, [facility] EXTERNAL PROVIDER 2022-04-03 05:01:00 Doctor Unassigned, No Univ [facility] RECORDS Name [facility] POCT TEST 2022-04-02 19:31:00 Louise Prado [facility] THYROID STIMULATING 2022-04-02 19:05:00 Louise Prado [facility] Encounters Start End Encounter Admission Attending Care Care Encounter Source Date/Time Date/Time Type Type Clinicians Facility Department ID 2021-04-22 [id number]21 [facility] [id number] Univers [facility] 2021-04-18 [facility] [id number] Univers [facility]:43[facility] 2022-05-23 2022-05-23 Outpatient [facility] [id number] Univers 10:30:00 10:30:00 [facility] [place] [facility] 2022-05-23 2022-05-23 Outpatient R [facility] [id number] Univers 10:30:00 10:30:00 CM [facility] [place] [facility] 2022-05-01 2022-05-01 Outpatient R [facility] [id number] Univers 08:00:00 08:00:00 YESSENIA [facility] [place] [facility] 2022-04-30 2022-04-30 Outpatient R [facility] [id number] Univers 07:45:00 07:45:00 ROSSTEPHENNDMarlene maldonado o f [facility] 2022-04-27 2022-04-27 Emergency X DREVER, [facility] [id number] Univers 02:06:00 02:53:00 WINIFRED [facility] [place] [facility] 2022-04-27 2022-04-27 Emergency [facility] [id number] Univers 02:06:00 02:53:00 Winifred PATE [id number] ity of [place] [id number] [place] [facility] [id number] [facility] 084 [place] 2022-04-27 2022-04-27 Orders Doctor BRONWYN 1.2.840.114 [id number] Univers 00:00:00 00:00:00 Only Unassigned, FAUSTO [id number] [facility] [id number] Rodney as [id number] [facility] 009 [place] 2022-04-18 2022-04-18 Outpatient R [facility] [id number] Univers 10:45:00 11:50:36 SULEIMAN [facility] [place] [facility] 2022-04-18 2022-04-18 Office Provider, RadhaRmchp [facility] 1 .2.840.114 [id number] Univers 10:45:00 11:50:36 Visit Suleiman Jarvis PHLEBOTOMY DIRECTOR [id number] ity of [facility] [id number] Rodney as MATERNAL [id number] [facility] & CHILD [address] [place] [address] 2022-04-17 2022-04-17 [facility] 1.2.840.114 [id number] Univers 00:00:00 00:00:00 Pete Piedra PHLEBOTOMY DIRECTOR [id number] ity of [facility] [id number] Rodney as MATERNAL [id number] [facility] & CHILD [address] [place] [address] 2022-04-16 2022-04-16 Outpatient R [facility] [id number] Univers 12:45:00 12:45:00 YESSENIA [facility] [place] [facility] 2022-04-03 2022-04-03 Orders Doctor BARNHART 1.2.840.114 [id number] Univers 00:00:00 00:00:00 Only Unassigned, FAUSTO [id number] ity of [place] [facility] [id number] Rodney as [id number] [facility] 009 [place] 2022-04-02 2022-04-02 Outpatient R [facility] [id number] Univers 12:45:00 14:18:[address] [facility] 2022-04-02 2022-04-02 Office Provider, Noah [facility] 1 .2.840.114 [id number] Univers 12:45:00 14:18:13 Visit Wilbert Willoughby PHLEBOTOMY DIRECTOR [id number] ity of [facility] [id number] [place] MATERNAL [id number] [facility] ical & CHILD [address] [place] [address] 2022-04-01 2022-04-01 [facility] [id number] Univers 09:00:00 09:00:[address] [facility] 2022-01-21 2022-01-21 [facility] [id number] Univers 13:15:00 13:15:[address] [facility] 2022-01-16 2022-01-16 Ref[facility]y [facility] 1.2.840.114 [id number] Univers 00:00:00 00:00:00 Jamie Francis PHLEBOTOMY DIRECTOR [id number] i ty of [facility] [id number] Rodney as MATERNAL [id number] [facility] ical & CHILD [address] [place] [address] 2022-01-15 2022-01-15 Patient Doctor BRONWYN 1.2.840.114 [id number] Univers 00:00:00 00:00:00 Secure Msg Unassigned, FAUSTO [id number] ity of [place] [facility] [id number] Rodney as [id number] [facility] 019 [place] 2022-01-14 2022-01-14 Outpatient GUY GONZALEZ [id number] Matagor 00:00:00 00:00:00 SSA 0727 da [facility] Outre h Program 2021-12-31 2021-12-31 Telephone Sydnie [facility] 1.2.840.114 [id number] Univers 00:00:00 00:00:00 Jamie Francis PHLEBOTOMY DIRECTOR [id number] i ty of REGIONAL [id number] Rodney as MATERNAL [id number] Med ical & CHILD [address] [place] [address] 2021-12-31 2021-12-31 Telephone Case [facility] [id number] Univers 00:00:00 00:00:00 Wilbert Jaffe PHLEBOTOMY DIRECTOR [id number] ity of [facility] [id number] Rodney as MATERNAL [id number] [facility] & CHILD [address] [place] [address] 2021-12-30 2021-12-30 Office Provider, Noah [facility] 1 .2.840.114 [id number] Univers 14:30:00 16:19:20 Visit Jamie Wall PHLEBOTOMY DIRECTOR [id number] ity of [facility] [id number] Rodney as MATERNAL [id number] [facility] & CHILD [address] [place] [address] 2021-12-30 2021-12-30 Outpatient JAMIE [facility] [id number] Univers 14:30:00 16:19:[address] [facility] 2021-12-30 2021-12-30 Outpatient JAMIE [facility] [id number] Univers 14:30:00 14:30:[address] [facility] 2021-12-18 2021-12-18 Outpatient Alannah [facility] [id number] Univers 09:45:00 09:45:00 WILBERT sheridan [facility] 2021-12-03 2021-12-03 Outpatient Alannah [facility] [id number] Univers 13:00:00 13:00:00 WILBERT sheridan [facility] 2021-12-022021-12-02 Telephone [facility] [id number] Univers 00:00:00 00:00:00 [facility] R PHLEBOTOMY DIRECTOR [id number] ity of REGIONAL [id number] Rodney as MATERNAL [id number] [facility] & CHILD [address] [place] [address] 2021-12-01 2021-12-01 [facility] [id number] Univers 13:30:00 13:30:00 GRANTNDA saqiby o f [facility] 2021-12-01 2021-12-01 Outpatient R [facility] [id number] Univers 13:30:00 13:30:[address] [facility] 2021-11-13 2021-11-13 Telephone [facility] [id number] Univers 00:00:00 00:00:00 [facility] PHLEBOTOMY DIRECTOR [id number] ity of [facility] [id number] Rodney as MATERNAL [id number] [address] 2021-11-11 2021-11-11 [facility] [id number] Univers 14:45:00 16:08:[address] [facility] 2021-11-11 2021-11-11 Office [facility] 1.2.840.114 [id number] Univers 14:45:00 16:08:19 [facility] R PHLEBOTOMY DIRECTOR [id number] ity of [facility] [id number] Rodney as MATERNAL [id number] [facility] CHILD [address] [place] [address] 2021-11-11 2021-11-11 Orders Doctor [facility] 1.2.840.114 [id number] Univers 00:00:00 00:00:00 Only Unassigned, FAUSTO [id number] ity of [place] [facility] [id number] Rodney as [id number] [address] 2021-03-21 2021-03-21 Outpatient [facility] [id number] Univers 14:45:00 14:45:00 PETE cerratoanna o f [facility] 2021-03-20 2021-03-20 Telephone [facility] 1.2.840.114 [id number] Univers 00:00:00 00:00:00 Pete Piedra PHLEBOTOMY DIRECTOR [id number] ity of [facility] [id number] Rodney as MATERNAL [id number] [facility] ical & CHILD [address] [place] [address] 2021-03-19 2021-03-19 Outpatient Al[facility] [id number] Univers 14:45:00 14:45:[address] [facility] 2021-03-18 2021-03-18 [facility] [id number] Univers 15:15:00 15:15:[address] [facility] 2021-03-16 2021-03-17 Emergency Sam Kemp [facility] 1.2.840.114 [id number] Univers 22:39:00 01:20:00 Salinasavanna Patiñoton 350.1.13.10 i ty of [place]2.7.2.686 [place] [id number] [address] 2021-02-20 2021-02-20 Telephone DemetrioBrittanyh BRONWYN 1.2.840.114 [id number] Univers 00:00:00 00:00:00 FAUSTO [id number] it y of [facility] [id number] Rodney as [id number] [address] 2021-02-19 2021-02-19 Emergency [facility] [id number] Univers 02:37:00 03:44:00 Joanne Luo [place] [id number] ity [facility] [id number] [place] [id number] [address] 2020-09-10 2020-09-10 Patient [facility] 1.2.840.114 [id number] 00:00:00 00:00:00 Outreach Juan [facility] [id number] [facility] [id number] PAVILLION [id number] 2020-09-10 2020-09-10 Patient [facility] 1.2.840.114 [id number] Univers 00:00:00 00:00:00 Outreach Juan PRIMARY [id number] i ty of [facility] 4.2.7.2.686 [place] [id number] Hi dical [address] [place] [address] 2020-08-27 2020-08-27 Outpatient R [facility] [id number] Univers 10:30:00 10:30:[address] [facility] 2020-08-26 2020-08-26 Outpatient R [facility] [id number] Univers 13:30:00 13:30:[address] [facility] [address] [facility] 2020-07-11 2020-07-11 Outpatient Alannah [facility] [id number] Univers 13:15:00 13:15:[address] [facility] 2020-06-27 2020-06-27 Office [facility] 1.2.840.114 [id number] 15:21:42 16:19:38 [facility] Jaffe PHLEBOTOMY DIRECTOR [id number] REGIONAL 4.2.7.2.686 MATERNAL [id number] & CHILD [address] [place] [address] 2020-06-27 2020-06-27 Office [facility] 1.2.840.114 [id number] Univers 15:21:42 16:19:38 Visit Myrandamargaret Jaffe PHLEBOTOMY DIRECTOR [id number] [facility] [id number] Rodney as MATERNAL [id number] Med ical & CHILD [address] [place] [address] 2020-06-27 2020-06-27 Outpatient Alannah [facility] [id number] Univers 15:30:00 15:30:00 ROSSTEPHENNDA ity o f [facility] 2020-06-05 2020-06-05 [facility] [id number] Univers 15:15:00 15:15:00 GERALDOA ity o f [facility] 2020-03-27 2020-03-28 Emergency Sam Kemp [facility] [id number] Univers 19:22:00 00:39:00 Salina Pate [id number] i ty of Frannie [id number] [facility] [id number] [address] 2019-12-05 2019-12-05 Emergency Shruthi [facility] [id number] Univers 01:22:11 03:48:00 Radha Love Nelli [id number] ity of Mamie [id number] [facility] [id number] [address] 2019-12-05 2019-12-05 Emergency X SHRUTHI [facility] ERT [id number] Univers 01:22:11 03:48:[address] [facility] 2019-11-15 2019-11-16 Emergency Sam Kemp [facility] [id number] Univers 19:21:57 00:00:00 Salina Pate [id number] i ty of [place]ie [id number] [facility] [id number] [address] 2019-11-15 2019-11-16 Emergency X Sam KEMP [facility] ERT [id number] Univers 19:21:57 00:00:00 ity of [facility] 2019-10-19 2019-10-19 Emergency Anil [facility] [id number] Univers 04:35:17 06:17:00 Luisa Pate [id number] i ty of [place] [id number] [facility] [id number] [address] 2019-10-19 2019-10-19 Emergency X ANIL, [facility] ERT [id number] Univers 04:35:17 06:17:[address] [facility] 2019-08-31 2019-08-31 Emergency Bob, [facility] [id number] Univers 03:53:07 05:03:00 Jessica Pate [id number] i ty of [place] [id number] [facility] [id number] [address] 2019-08-31 2019-08-31 Emergency X TANIA, [facility] ERT [id number] Univers 03:53:07 05:03:[address] [facility] 2019-06-09 2019-06-09 Emergency X BETO III, [facility] ERT [id number] Univers 16:17:18 19:21:[address] [facility] 2019-01-29 2019-01-29 Emergency Beto, [facility] [id number] Univers 15:09:14 18:22:00 Manan A Nelli [id number] i ty of [place] [id number] [facility] [id number] [address] 2019-01-29 2019-01-29 Orders Doctor BRONWYN [id number] Univers 00:00:00 00:00:00 Only Unassigned, FAUSTO [id number] ity of [place] [facility] [id number] Rodney [id number] [address] Results Test Description Test Time Test Comments Results Result Comments Source POCT TEST 2022-04-27 08:22:00 Test Item Value Reference Range Interpretation Comme nts POCT PREG (test code = 1605) neg On board controls acceptable with C Line (test code = 3574) yes POCT PREG LOT # (test code = 3575) [id number] POCT PREG TEST DATE (test code = 3576) 09/19/2023 Lab Interpretation (test code = 92989-0) Normal [facility] [id number] 06:28:56 Test Item Value Reference Range Interpretation Comments TSH (test code = See_Comment Biotin has been [id number]) reported to cau se a negative bias, interpret resul ts relative to pat ient's use of biotin. [Automated mess age] The system Sist[employer] generated this result transmitted ref erence range: 0.45 - 4 .70 mIU/L. The refe rence range was not u sed to interpret this result as normal/abnor mal. Lab Interpretation (test Normal code = 15710-4) [facility] [id number] 06:28:56 Test Item Value Reference Range Interpretation Comments TSH (test code = See_Comment Biotin has been [id number]) reported to cau se a negative bias, interpret resul ts relative to gayle hughes's use of biotin. [Automated mess age] The system [employer]ist[employer] generated this result transmitted ref erence range: 0.45 - 4 .70 mIU/L. The refe rence range was not u sed to interpret this result as normal/abnor mal. Lab Interpretation (test Normal code = 73758-8) [facility] [id number] 19:31:00 Test Item Value Reference Range Interpretation Comments POCT PREG (test code = 1605) Negative On board controls acceptable with C Yes Line (test code = 3574) POCT PREG LOT # (test code = 3575) POCT PREG TEST DATE (test code = 3576) [facility] [id number] 19:31:00 Test Item Value Reference Range Interpretation Comments POCT PREG (test code = 1605) Negative On board controls acceptable with C Yes Line (test code = 3574) POCT PREG LOT # (test code = 3575) POCT PREG TEST DATE (test code = 3576) [facility]
[2022-07-01 03:24] LABS: Absolute Lymphocytes (CBC) 2.4 K/uL (0.7-4.9); Hematocrit 34.9 % (36.0-45.0); Lymphocytes % 26.7 % (15.3-44.8); MCV 85.4 fL (80-100); MPV 8.4 fL (7.6-11.3); RBC Red Blood Cell Count 4.09 M/uL (3.86-4.86)
[2022-07-01 03:40] LABS: BUN Blood Urea Nitrogen 10 mg/dL (7-18); Bicarbonate 28 mmol/L (21-32); Glomerular Filtration Rate 125 ml/min (=/>90); Glucose Level 95 mg/dL (74-106); Potassium 3.3 mmol/L (3.5-5.1); Sodium Level 139 mmol/L (136-145)
[2022-07-01 03:45] LABS: HCG, Quantitative < 1 mIU/mL (1-3)
[2022-07-01] MEDS ORDERED: KETOROLAC 30 MG/ML INJ ONE (04:39)
--- NOTE | 2022-07-01 05:01 | ER ---
Nurse's Notes [facility] Name: Elba Wells Age: 26 yrs Sex: Female : 1995 Arrival Date: 07/01/2022 Time: 02:16 Bed 6 Private MD: Diagnosis: Other ovarian cysts;menorrhagia Presentation: 07/01 02:35 Chief complaint: Patient states: yesterday she started having abdominal pain with heavy bb menstrual bleeding and lots of clots also she fell 2 days ago and is having right wrist pain. Coronavirus screen: At this time, the client does not indicate any symptoms associated with coronavirus-19. Ebola Screen: No symptoms or risks identified at this time. Initial Sepsis Screen: Does the patient meet any 2 criteria? No. Patient's initial sepsis screen is negative. Does the patient have a suspected source of infection? No. Patient's initial sepsis screen is negative. Risk Assessment: Do you want to hurt yourself or someone else? Patient reports no desire to harm self or others. Onset of symptoms was June 30, 2022. 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 - Social history:: Smoking status: Patient denies any tobacco usage or history of. - Family history:: not pertinent. Screenin:00 [facility] ED Fall Risk Assessment (Adult) Score/Fall Risk Level 0 - 2 = Low Risk. Abuse as6 screen: Denies threats or abuse. Denies injuries from another. Nutritional screening: No deficits noted. Tuberculosis screening: No symptoms or risk factors identified. Assessment: 02:59 General: Appears uncomfortable, Behavior is calm, cooperative. Pain: Complains of pain as6 in right lower quadrant and left lower quadrant. Pain: Quality of pain is described as crampy. Pain: Quality of pain is described as "it feels worse than contractions. Neuro: Level of Consciousness is awake, alert, obeys commands, Oriented to person, place, time, situation. Cardiovascular: Capillary refill < 3 seconds Patient's skin is warm and dry. Respiratory: Respiratory effort is even, unlabored, Respiratory pattern is regular, symmetrical. : Reports cramping, in bilateral lower quadrant(s) vaginal bleeding that is with clots, heavy flow. Vital Signs: 02:35 BP 114 / 81; Pulse 79; Resp 16 S; Temp 98.8(O); Pulse Ox 99% on R/A; Weight 90.72 kg bb (R); Height 5 ft. 7 in. (170.18 cm) (R); Pain 9/10; 05:08 BP 108 / 75; Pulse 79; Resp 18 S; Pulse Ox 100% on R/A; as6 02:35 Body Mass Index 31.32 (90.72 kg, 170.18 cm) bb ED Course: 02:16 Patient arrived in ED. jj6 02:20 Merrick Pina MD is Attending Physician. rt 02:27 Martní Currie, BALDOMERO is Primary Nurse. as6 02:37 Triage completed. bb 02:37 Arm band placed on Patient placed in an exam room, on a stretcher, on pulse oximetry. bb 02:59 Inserted saline lock: 20 gauge in right antecubital area, using aseptic technique. as6 Blood collected. 03:00 Placed in gown. Bed in low position. Call light in reach. Side rails up X2. as6 03:32 US OB Limited In Process Unspecified. EDMS 03:34 Wrist Right 3 View XRAY In Process Unspecified. EDMS 05:07 No provider procedures requiring assistance completed. IV discontinued, intact, as6 bleeding controlled, No redness/swelling at site. Pressure dressing applied. Administered Medications: 04:40 Drug: Ketorolac 30 mg Route: IM; Site: right deltoid; as6 05:07 Follow up: Response: No adverse reaction as6 Medication: 03:00 VIS not applicable for this client. as6 Outcome: 05:00 Discharge ordered by . rt 05:06 Patient left the ED. as6 05:07 Discharged to home ambulatory. as6 05:07 Condition: stable 05:07 Discharge instructions given to patient, Instructed on discharge instructions, follow up and referral plans. medication usage, Demonstrated understanding of instructions, follow-up care, medications, Prescriptions given X 2. Signatures: Dispatcher [employer] Tawana Hogan, RN Abby Mejia6 Martín Currie RN RN as6 Merrick Pina MD MD rt
--- NOTE | 2022-07-01 05:01 | EDPHYS ---
Physician Documentation [facility] Name: Elba Wells Age: 26 yrs Sex: Female : 1995 Arrival Date: 07/01/2022 Time: 02:16 Bed 6 Private MD: ED Physician Merrick Pina HPI: 07/01 03:17 This 26 yrs old Female presents to ER via Ambulatory with complaints of Wrist rt Injury, Pelvic Pain, Vaginal Bleeding. 03:27 Presents to the ED with vaginal bleeding starting yesterday. It has been progressively rt worsening, with clots. She reports a pain to the suprapubic, left lower quadrant. The patient's last menstrual period was at the beginning of April. The patient had a fall about a week ago, injuring her right wrist. She did not seek attention at that time. Patient states that she tripped, did not have a syncopal event. Patient states that she had a family positive test at home. She denies other acute complaints at this time, symptoms are moderate in severity, aching in nature, nonradiating, no other aggravating or alleviating factors.. 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 - Social history:: Smoking status: Patient denies any tobacco usage or history of. - Family history:: not pertinent. ROS: 03:27 : Positive for vaginal bleeding, Negative for vaginal discharge. rt 03:27 MS/extremity: Positive for contusion, Negative for erythema. 03:32 Constitutional: Negative for fever, chills, and weight loss, Eyes: Negative for injury, rt pain, redness, and discharge, ENT: Negative for injury, pain, and discharge, Cardiovascular: Negative for chest pain, palpitations, and edema, Respiratory: Negative for shortness of breath, cough, wheezing, and pleuritic chest pain, Skin: Negative for injury, rash, and discoloration, Neuro: Negative for headache, weakness, numbness, tingling, and seizure, Psych: Negative for depression, anxiety, suicide ideation, homicidal ideation, and hallucinations. 03:32 Abdomen/GI: Positive for abdominal pain, Negative for nausea. Exam: 03:41 Constitutional: This is a well developed, well nourished patient who is awake, alert, rt and in no acute distress. Head/Face: Normocephalic, atraumatic. Eyes: Pupils equal round and reactive to light, extra-ocular motions intact. Lids and lashes normal. Conjunctiva and sclera are non-icteric and not injected. Cornea within normal limits. Periorbital areas with no swelling, redness, or edema. Chest/axilla: Normal chest wall appearance and motion. Nontender with no deformity. No lesions are appreciated. Cardiovascular: Regular rate and rhythm with a normal S1 and S2. No gallops, murmurs, or rubs. Normal PMI, no JVD. No pulse deficits. Respiratory: Lungs have equal breath sounds bilaterally, clear to auscultation and percussion. No rales, rhonchi or wheezes noted. No increased work of breathing, no retractions or nasal flaring. Skin: Warm, dry with normal turgor. Normal color with no rashes, no lesions, and no evidence of cellulitis. Neuro: Awake and alert, GCS 15, oriented to person, place, time, and situation. Cranial nerves II-XII grossly intact. Motor strength 5/5 in all extremities. Sensory grossly intact. Cerebellar exam normal. Normal gait. Psych: Awake, alert, with orientation to person, place and time. Behavior, mood, and affect are within normal limits. 03:41 Abdomen/GI: Tenderness to the epigastrium and left lower quadrant without rebound, guarding, distention.. 03:41 Musculoskeletal/extremity: Mild bruising to the right wrist, no deformities noted. Vital Signs: 02:35 BP 114 / 81; Pulse 79; Resp 16 S; Temp 98.8(O); Pulse Ox 99% on R/A; Weight 90.72 kg bb (R); Height 5 ft. 7 in. (170.18 cm) (R); Pain 9/10; 05:08 BP 108 / 75; Pulse 79; Resp 18 S; Pulse Ox 100% on R/A; as6 02:35 Body Mass Index 31.32 (90.72 kg, 170.18 cm) bb MDM: 02:23 Patient medically screened. rt 05:45 Differential diagnosis: Raja, ovarian cyst, ovarian torsion, ectopic , rt threatened AB, missed AB. Data reviewed: vital signs, nurses notes, lab test result(s), radiologic studies. I considered the following discharge prescriptions or medication management in the emergency department Medications were administered in the Emergency Department. See MAR. Response to treatment: the patient's symptoms have mildly improved after treatment. ED course: Patient presents to the ED with a lower abdominal pain. test is negative. Ultrasound reveals a hemorrhagic ovarian cyst. No evidence of ovarian torsion. Patient was symptomatic improvement treatment in the ED, she is stable for outpatient care. Patient to follow-up with PRINTING ROLLER POLISHER as an outpatient. Return precautions were discussed. 07/01 02:45 Order name: Abo/rh Typing; Complete Time: 03:53 rt 07/01 02:45 Order name: Basic Metabolic Panel; Complete Time: 03:53 rt 07/01 02:45 Order name: CBC with Diff; Complete Time: 03:41 rt 07/01 02:45 Order name: Quantitative Hcg; Complete Time: 03:53 rt 07/01 02:45 Order name: US OB Limited rt 07/01 03:17 Order name: Wrist Right 3 View XRAY rt 07/01 02:45 Order name: IV Saline Lock; Complete Time: 02:59 rt 07/01 02:45 Order name: Labs collected and sent; Complete Time: 02:59 rt 07/01 02:45 Order name: NPO; Complete Time: 02:59 rt Administered Medications: 04:40 Drug: Ketorolac 30 mg Route: IM; Site: right deltoid; as6 05:07 Follow up: Response: No adverse reaction as6 Disposition Summary: 07/01/22 05:00 Discharge Ordered Location: Home rt Problem: new rt Symptoms: have improved rt Condition: Stable rt Diagnosis - Other ovarian cysts rt - menorrhagia rt Followup: rt - With: Private Physician - When: 2 - 3 days - Reason: Discharge Instructions: - Discharge Summary Sheet rt - Menorrhagia rt - Ovarian Cyst rt Forms: - Medication Reconciliation Form rt - Thank You Letter rt - Antibiotic Education rt - Prescription Opioid Use rt Prescriptions: - LYSTEDA 650 mg tab - take 2 tablet by ORAL route every 8 hours; 30 tablet; Refills: 0, Product rt Selection Permitted - TORADOL 10 mg tab - take 1 tablet by ORAL route every 6 hours; 15 tablet; Refills: 0, Product rt Selection Permitted Signatures: Dispatcher [employer] Tawana Hogan RN RN bb Slawson, Ashby, RN RN as6 Merrick Pina MD MD rt
[2022-07-01 05:20] VITALS: BP 114/81; TEMP 98.8; O2SAT 99
--- NOTE | 2022-07-01 13:03 | RAD REPORT ---
EXAM DESCRIPTION: Wrist Right 3 View XR Right Wrist 3 Views CLINICAL HISTORY: Pain COMPARISON: None. TECHNIQUE: Right Wrist 3 Views FINDINGS: No fracture or dislocation. No significant sclerotic/lytic bone lesion. Joint spaces unremarkable. Soft tissues unremarkable. IMPRESSION: Unremarkable Right Wrist Radiographs. Electronically signed by: Art Bailey MD 07/01/2022 3:59 AM PAINTER SKI EDGE Due to temporary technical issues with the PACS/Fluency reporting system, reports are being signed by the in house radiologists without review as a courtesy to insure prompt reporting. The interpreting radiologist is fully responsible for the content of the report.
--- NOTE | 2022-07-01 13:38 | RAD REPORT ---
EXAM DESCRIPTION: US , Transvaginal CLINICAL HISTORY: The patient is 26 years old and is Female; abdominal cramping, vaginal bleeding. L MP April 23, 2022. TECHNIQUE: Real-time transvaginal obstetrical ultrasound of the maternal pelvis and a first trimeste r with image documentation. Transvaginal imaging was used for better evaluation of the fe tus and adnexa. COMPARISON: No relevant prior studies available. FINDINGS: Gestation: No intrauterine gestational sac, yolk sac or pole. Placenta/amniotic fluid: Cannot be adequately evaluated due to the early gestational age. Uterus/cervix: Uterus is 8.8 x 4.8 x 5.5 cm in size. No myometrial mass. Ovaries: Large left ovarian cyst, 5.8 cm. There is a small amount of layering echogenic debris s uggesting a small amount of internal hemorrhage. Right ovary 2.5 x 2.6 x 2.2 cm in size. Left ovary is 6.4 x 6.2 x 4.1 cm in size. No mass. Free fluid: No free fluid. * A single impression for all exams can be found at the end of this report EXAM DESCRIPTION: US Duplex Arterial/Venous of the Pelvis, Complete CLINICAL HISTORY: The patient is 26 years old and is Female; abdominal cramping, vaginal bleeding. L MP April 23, 2022. TECHNIQUE: Real-time duplex ultrasound scan of the pelvis integrating B-mode two-dimensional vascula r structure, Doppler spectral analysis and color flow Doppler imaging. COMPARISON: No relevant prior studies available. FINDINGS: Right ovary: Unremarkable. Normal blood flow on color and spectral Doppler imaging. No torsion. Left ovary: Unremarkable. Normal blood flow on color and spectral Doppler imaging. No torsio n. * A single impression for all exams can be found at the end of this report IMPRESSION: US , Transvaginal: 1. No IUP identified. Differential diagnosis includes early gestation, ectopic and, if th e patient is bleeding, threatened . Serial quantitative hCGs and short-term ultrasound follow -up recommended. 2. 5.8 cm left ovarian cyst with a small amount of layering echogenic debris suggesting hemorrhagic cyst. US Duplex Arterial/Venous of the Pelvis, Complete: No ovarian torsion. 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 The interpreting radiologist is fully responsible for the content of the report.
== END 2022-07-01 05:06 | disposition home or self-care (01) ==
LOC: ER 02:13
DX: N92.0 Excessive and frequent menstruation with regular cycle (principal); N83.299 Other ovarian cyst, unspecified side; M25.531 Pain in right wrist; Z91.041 Radiographic dye allergy status
CPT/HCPCS: 36415; 76815; 80048; 84702; 85025; 86900; 86901; 96372; 99284

== ENCOUNTER → 2023-06-18 | Emergency (ER) | payer OTHER ==
[~2023-06-18] MED LIST: DIPHENHYDRAMINE 50 MG/ML VIAL ONE; KETOROLAC 30 MG/ML INJ ONE; METOCLOPRAMIDE 10 MG/2mL INJ ONE; NA CHLORIDE 0.9% 1,000 ML ONE
--- OUTSIDE RECORDS SUMMARY | 2023-06-18 17:49 | XMS REPORT | Continuity of Care Document ---
Author Name Unknown Address [address] [facility] [place] [address] [facility] thconnect Address [address] 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 Embedded Software Design Engineer Name Role Phone INOCENCIO Attending Clinician Unavailable Juan Marshall DO Attending Clinician [phone] Wilbert Downey Attending Clinician INOCENCIO Admitting Clinician Unavailable Encounters Start Date/Time End Date/Time Encounter Type Admission Type Attending Clinicians Care Facility Care Department Encounter ID Source 2022-01-14 00:00:00 2022-01-14 00:00:00 Outpatient [facility] [id number] 2020-09-10 00:00:00 2020-09-10 00:00:00 Patient Outreach Juan Marshall [facility] [id number] 2020-06-27 15:21:42 2020-06-27 16:19:38 Office Visit Wilbert Borja [facility] [id number]
--- NOTE | 2023-06-18 21:10 | RAD REPORT ---
EXAM DESCRIPTION: RADChest Single View06/18/2023 8:10 pm CLINICAL HISTORY: CHEST PAIN COMPARISON: Chest Single View dated 05/17/2022; Chest Pa And Lat (2 Views) dated 04/21/2022; Chest Pa And Lat (2 Views) dated 03/31/2022; Chest Single View dated 10/10/2021 TECHNIQUE: Portable AP view of the chest. FINDINGS: The lungs are clear. No pneumothorax or effusion. The cardiomediastinal contours are unre markable. IMPRESSION: No acute cardiopulmonary process.
--- NOTE | 2023-06-18 21:59 | ER ---
Nurse's Notes [facility] Name: Elba Wells Age: 27 yrs Sex: Female : 1995 Arrival Date: 06/18/2023 Time: 17:45 Bed 18 Private MD: Diagnosis: Acute upper respiratory infection, unspecified;Migraine without aura, not intractable Presentation: 06/18 18:00 Chief complaint: Cough, headache, chest pain, pain with cough, congestion, chills, and hb body aches x 7 days. Coronavirus screen: Client presents with at least one sign or symptom that may indicate coronavirus-19. Standard/surgical mask placed on the client. Provider contacted for isolation considerations. Ebola Screen: No symptoms or risks identified at this time. Initial Sepsis Screen: Does the patient meet any 2 criteria? No. Patient's initial sepsis screen is negative. Does the patient have a suspected source of infection? No. Patient's initial sepsis screen is negative. Risk Assessment: Do you want to hurt yourself or someone else? Patient reports no desire to harm self or others. Onset of symptoms was June 11, 2023. 18:00 Method Of Arrival: Ambulatory hb 18:00 Acuity: CED 3 hb Historical: - Allergies: 18:02 Iodinated Contrast Media - IV Dye; hb - PMHx: 18:02 Anemia; Asthma; Lupus erythematosus; Rheumatoid Arthritis; hb - PSHx: 18:02 Adenoid excision; section; Cholecystectomy; D\T\C; Ovarian cyst removal; hb Tonsillectomy; - Immunization history:: Client reports having NOT received the Covid vaccine. Flu vaccine is not up to date. Patient has never been vaccinated. - Social history:: Smoking status: Patient denies any tobacco usage or history of. Screenin:29 [facility] ED Fall Risk Assessment (Adult) History of falling in the last 3 months, tm6 including since admission No falls in past 3 months (0 pts). Abuse screen: Denies threats or abuse. Denies injuries from another. Nutritional screening: No deficits noted. Tuberculosis screening: No symptoms or risk factors identified. Assessment: 18:07 Reassessment: COVID/FLU/STREP SWABS SENT. iw 21:14 General: Appears in no apparent distress. uncomfortable, Behavior is calm, cooperative. tm6 Pain: Complains of pain in face and chest Quality of pain is described as fullness in head. Pain: Pain does not radiate. Pain began one week ago. Neuro: Level of Consciousness is awake, alert, obeys commands, Oriented to person, place, time, situation. Cardiovascular: Capillary refill < 3 seconds. Cardiovascular: Parent/caregiver reports patient has had chest pain, tender to touch. Respiratory: Reports cough that is non-productive, pain with cough Airway is patent Respiratory effort is even, Respiratory pattern is regular, symmetrical. GI: Abdomen is round non-distended. : No signs and/or symptoms were reported regarding the genitourinary system. EENT: Reports. 21:29 EENT: Reports cough and scratchy throat. Derm: No signs and/or symptoms reported tm6 regarding the dermatologic system. Musculoskeletal: No signs and/or symptoms reported regarding the musculoskeletal system. 22:08 Reassessment: Patient appears in no apparent distress at this time. Patient and/or tm6 family updated on plan of care and expected duration. Pain level reassessed. Patient is alert, oriented x 3, equal unlabored respirations, skin warm/dry/pink. Vital Signs: 18:00 BP 120 / 82; Pulse 76; Resp 18; Temp 98(TE); Pulse Ox 99% on R/A; Weight 95.25 kg; hb Height 5 ft. 7 in. ; Pain 8/10; 21:29 BP 125 / 87; Pulse 90; Pulse Ox 100% on R/A; Pain 8/10; tm6 22:08 BP 88 / 53; Pulse 72; Pulse Ox 96% on R/A; Pain 6/10; tm6 22:42 BP 100 / 68; Pulse 71; Pulse Ox 100% on R/A; Pain 6/10; tm6 22:59 BP 109 / 78; Pulse 77; Pulse Ox 100% on R/A; tm6 18:00 Body Mass Index 32.89 (95.25 kg, 170.18 cm) hb 18:00 Pain Scale: Adult hb 21:29 Pain Scale: Adult tm6 22:08 Pain Scale: Adult tm6 22:42 Pain Scale: Adult tm6 ED Course: 17:49 Patient arrived in ED. ae5 17:49 [facility] kb 17:49 Kenrick Banuelos MD is Attending Physician. kb 18:02 Triage completed. hb 18:02 Arm band placed on. hb 20:11 Chest Single View XRAY In Process Unspecified. EDMS 21:00 Chi Oro, RN is Primary Nurse. tm6 21:29 Patient has correct armband on for positive identification. Bed in low position. Call tm6 light in reach. Side rails up X2. Provided Education on: plan of care. Client placed on continuous cardiac and pulse oximetry monitoring. NIBP monitoring applied. Door closed. Noise minimized. Lights dimmed. Warm blanket given. 21:29 No provider procedures requiring assistance completed. Inserted saline lock: 20 gauge tm6 in left antecubital area, using aseptic technique. Patient maintains SpO2 saturation greater than 95% on room air. 23:10 IV discontinued, intact, bleeding controlled, No redness/swelling at site. Pressure tm6 dressing applied. Administered Medications: 21:28 Drug: diphenhydrAMINE IVP 12.5 mg IVP once Route: IVP; Site: left antecubital; tm6 21:29 Drug: NS 0.9% IV 1000 ml IV at 1000 ml once Route: IV; Rate: 1000 ml; Site: left tm6 antecubital; 22:29 Follow up: IV Intake: 1000ml tm6 21:29 Drug: Ketorolac IVP 15 mg IVP once Route: IVP; Site: left antecubital; tm6 21:29 Drug: metoCLOPramide IVP 10 mg IVP once; over 1 to 2 minutes Route: IVP; Site: left tm6 antecubital; 22:29 Drug: NS 0.9% IV 1000 ml IV at 1 bolus Per protocol; 1000 mL bolus Route: IV; Rate: 1 tm6 bolus; Site: left antecubital; 23:10 Follow up: IV Intake: 1000ml tm6 Medication: 21:29 VIS not applicable for this client. tm6 Intake: 22:29 IV: 1000ml; Total: 1000ml. tm6 23:10 IV: 1000ml; Total: 2000ml. tm6 Outcome: 21:59 Discharge ordered by . kb 23:09 Discharged to home ambulatory, with family, tm6 23:09 Condition: stable 23:09 Discharge instructions given to patient, Instructed on discharge instructions, follow up and referral plans. Demonstrated understanding of instructions, follow-up care, 23:10 Patient left the ED. tm6 Signatures: Dispatcher [employer] EDCarolina Singh, SRINI JOHNSTON-Fallon Rangel, RN BALDOMERO iw Jade Moraes RN RN Chi Lange RN RN tm6 Anali Ulloa ae5
--- NOTE | 2023-06-18 22:00 | EDPHYS ---
Physician Documentation [facility] Name: Elba Wells Age: 27 yrs Sex: Female : 1995 Arrival Date: 06/18/2023 Time: 17:45 Bed 18 Private MD: ED Physician Kenrick Banuelos HPI: 06/18 23:26 This 27 yrs old Female presents to ER via Ambulatory with complaints of Chest kb Pain. 23:26 Patient is a 27-year-old female who presents for cough, headache, chest pain with kb cough, congestion, chills and body aches for 7 days. States she has a history of migraines and this headache feels similar to that. States she tried her migraine medication twice today which is the max that she is to take it in 1 day.. Historical: - Allergies: 18:02 Iodinated Contrast Media - IV Dye; hb - PMHx: 18:02 Anemia; Asthma; Lupus erythematosus; Rheumatoid Arthritis; hb - PSHx: 18:02 Adenoid excision; section; Cholecystectomy; D\T\C; Ovarian cyst removal; hb Tonsillectomy; - Immunization history:: Client reports having NOT received the Covid vaccine. Flu vaccine is not up to date. Patient has never been vaccinated. - Social history:: Smoking status: Patient denies any tobacco usage or history of. ROS: 23:24 Abdomen/GI: Negative for abdominal pain, nausea, vomiting, diarrhea, and constipation, kb 23:24 Constitutional: Positive for body aches, chills, malaise, 23:24 ENT: Positive for rhinorrhea, sinus congestion, 23:24 Respiratory: Positive for cough, 23:24 Neuro: Positive for headache, 23:24 All other systems are negative, Exam: 23:24 Constitutional: This is a well developed, well nourished patient who is awake, alert, kb and in no acute distress. Head/Face: Normocephalic, atraumatic. ENT: Moist Mucous membranes Cardiovascular: Regular rate Respiratory: Respirations even and unlabored. No increased work of breathing. Talking in full sentences Abdomen/GI: Soft, non-tender. No distention Skin: Warm, dry with normal turgor. Normal color. MS/ Extremity: Pulses equal, no cyanosis. Neurovascular intact. Full, normal range of motion. Neuro: Awake and alert, GCS 15, oriented to person, place, time, and situation. Moves all extremities. Normal gait. Vital Signs: 18:00 BP 120 / 82; Pulse 76; Resp 18; Temp 98(TE); Pulse Ox 99% on R/A; Weight 95.25 kg; hb Height 5 ft. 7 in. ; Pain 8/10; 21:29 BP 125 / 87; Pulse 90; Pulse Ox 100% on R/A; Pain 8/10; tm6 22:08 BP 88 / 53; Pulse 72; Pulse Ox 96% on R/A; Pain 6/10; tm6 22:42 BP 100 / 68; Pulse 71; Pulse Ox 100% on R/A; Pain 6/10; tm6 22:59 BP 109 / 78; Pulse 77; Pulse Ox 100% on R/A; tm6 18:00 Body Mass Index 32.89 (95.25 kg, 170.18 cm) hb 18:00 Pain Scale: Adult hb 21:29 Pain Scale: Adult tm6 22:08 Pain Scale: Adult tm6 22:42 Pain Scale: Adult tm6 MDM: 17:50 Patient medically screened. kb 23:25 Differential diagnosis: COVID, flu, RSV, pneumonia, migraine, tension headach. Data kb reviewed: vital signs, nurses notes. 23:26 Counseling: I had a detailed discussion with the patient and/or guardian regarding the kb historical points, exam findings, and any diagnostic results supporting the discharge/admit diagnosis, lab results, radiology results, the need for outpatient follow up, a family practitioner, to return to the emergency department if symptoms worsen or persist or if there are any questions or concerns that arise at home. Response to treatment: the patient's symptoms have resolved after treatment. 06/18 18:02 Order name: COVID-19 SARS RT PCR kb 06/18 18:24 Order name: Throat Culture EDMS 06/18 18:34 Order name: Influenza Screen (A ; Complete Time: 19:04 EDMS 06/18 18:59 Order name: Throat Culture; Complete Time: 19:04 EDMS 06/18 19:06 Order name: SARS-COV-2 RT PCR; Complete Time: 19:08 EDMS 06/18 18:02 Order name: Chest Single View XRAY; Complete Time: 21:11 kb 06/18 18:02 Order name: IV Start; Complete Time: 21:22 kb Administered Medications: 21:28 Drug: diphenhydrAMINE IVP 12.5 mg IVP once Route: IVP; Site: left antecubital; tm6 21:29 Drug: NS 0.9% IV 1000 ml IV at 1000 ml once Route: IV; Rate: 1000 ml; Site: left tm6 antecubital; 22:29 Follow up: IV Intake: 1000ml tm6 21:29 Drug: Ketorolac IVP 15 mg IVP once Route: IVP; Site: left antecubital; tm6 21:29 Drug: metoCLOPramide IVP 10 mg IVP once; over 1 to 2 minutes Route: IVP; Site: left tm6 antecubital; :29 Drug: NS 0.9% IV 1000 ml IV at 1 bolus Per protocol; 1000 mL bolus Route: IV; Rate: 1 tm6 bolus; Site: left antecubital; 23:10 Follow up: IV Intake: 1000ml tm6 Disposition Summary: 06/18/23 21:59 Discharge Ordered Notes: Location: Home kb Condition: Stable kb Diagnosis - Acute upper respiratory infection, unspecified kb - Migraine without aura, not intractable kb Followup: kb - With: Emergency Department - When: As needed - Reason: Worsening of condition Followup: kb - With: Private Physician - When: 2 - 3 days - Reason: Recheck today's complaints, Continuance of care, Re-evaluation by your physician Discharge Instructions: - Discharge Summary Sheet kb - Upper Respiratory Infection, Adult, [id number] kb - Viral Respiratory Infection, [id number] kb Forms: - Medication Reconciliation Form kb - Thank You Letter kb - Antibiotic Education kb - Prescription Opioid Use kb - Patient Portal Instructions kb - Leadership Thank You Letter kb Signatures: Dispatcher [employer] Carolina Stout, SRINI PRABHAKARP-Jade Vu, RN RN Chi Oro RN RN tm6
[2023-06-19 01:12] VITALS: TEMP 98
[2023-06-19 01:22] VITALS: BP 109/78; O2SAT 100
== END ==
LOC: ER 17:45
DX: J06.9 Acute upper respiratory infection, unspecified (principal); G43.009 Migraine without aura, not intractable, without status migrainosus; Z11.52 Encounter for screening for COVID-19; Z28.310 Unvaccinated for COVID-19; Z91.041 Radiographic dye allergy status
CPT/HCPCS: 87070; 87081; 87635; 87804 ×2; 71045; 96375; 96374; 99285; J2765; J1200; J7030 ×2

== ENCOUNTER → 2023-08-26 | Emergency (ER) | payer OTHER ==
[~2023-08-26] MED LIST changes: +HALOPERIDOL LACT 5 MG/ML INJ ONE; +dexAMETHasone 10 MG/ML VIAL ONE
--- OUTSIDE RECORDS SUMMARY | 2023-08-26 15:41 | XMS REPORT | Continuity of Care Document ---
Author Name Unknown Address [address] [facility] [address] [place] [address] [facility] Address [address] [facility] [place] [address] Care Team Providers Care Service Or Work Dispatcher Name Role Phone Thais Foy Primary Care Physician BANDAR BACA Attending Clinician Unavailable IRA SMITH Attending Clinician Unavailable KVNG GILMAN Attending Clinician UnavailTAWANA Mendiola Attending Clinician UnavailBOB Valdovinos Attending Clinician UnavailBOB Elliott Attending Clinician UnavailBRONWYN Chambers Attending Clinician Unavailable TAWNYA GAN Attending Clinician Unavailable Laurie Montejo OT Attending Clinician Unavail Bronwyn Merchant MD Attending Clinician [phone] PETE OWENS Attending Clinician Unavail able Visit, [facility] Nurse Attending Clinician Unava harsh [facility] + JOCY MICHAEL Attending Clinician Unavailab juan j MENDOZAIra Attending Clinician [phone] BOGDAN GABRIEL Attending Clinician Unavailable Lorena Kirk MD Attending Clinician [phone] Tiffanie AVINAMariamon Attending Clinician + [phone] [facility] Attending Clinician Unavailable Juan Hernandez DO Attending Clinician [phone] Unruly Tran MD Attending Clinician [phone] Tawnya Maynard Attending Clinician [phone] Doctor Unassigned, Reeder Attending Clinician U Thais Mae Attending Clinician [phone] Irene Mari MD Attending Clinician [phone] Tawana Jean CNM Attending Clinician [phone] UNRULY TRAN Attending Clinician Unavailab Juan Allred DO Attending Clinician [phone] JESSICA TORRES Attending Clinician Unavailab Jessica Nogueira DO Attending Clinician + [phone] IRENE MARI Attending Clinician Unavailable Unknown, Attending Attending Clinician Unavailab ROMULO Luna Attending Clinician Unavaila ROMULO Riggs Attending Clinician Unavaila regina Buck, [facility] Attending Clinician UnavailRomulo Casas MD Attending Clinician + [phone] THAIS MARIN Attending Clinician Unavailable CARLITO MORAN Attending Clinician Unavailable Carlito Moran MD Attending Clinician +[phone] [facility] Attending Clinician U LORENA Curry Attending Clinician Unavailable Albino ALEXANDRE, Shy Lucero Attending Clinician [phone] Bandar Baca MD Attending Clinician [phone] Jose Craig MD Attending Clinician + [phone] Pcp-Lab Attending Clinician Unavailable Ludy Bridges MD Attending Clinician LUDY BRIDGES Attending Clinician Unavail able Lab, Ang - Db Attending Clinician Unavailable Pgy2 Attending Clinician Unavailable Alissa Leon MD Attending Clinician [phone] KEVIN PELLETIER Attending Clinician Unavaila KEVIN Pierre Attending Clinician Unavailmarlene pizarro Trimester, [facility]st Attending Clinician Unavailable GAURAV JOHN Attending Clinician Unavailable Gaurav John MD Attending Clinician [phone] DEB BENAVIDEZ Attending Clinician Unavailab Deb Landa DO Attending Clinician + [phone] Mariajose Ramsey MD Attending Clinician +[phone] MARIAJOSE RAMSEY Attending Clinician Unavailable Clary Perez Attending Clinician +[phone] Ese Puga RN Attending Clinician UnavailSevero Burch MD Attending Clinicia n [facility] Attending Clinician Unavailable WILBUR WILSON Attending Clinician Unavailable WILBUR WILSON Attending Clinician Unavailable [facility] Attending Clinician Unavailable Wilbur Wilson MD Attending Clinician [phone] 1, [facility] Room Attending Clinician Unavailab Saad Bynum Attending Clinician Unavailable Pcp, Patient Does Not Have A Attending Clinician Karon Wesley Attending Clinician +[phone] SANDHYA ARAYA Attending Clinician Unavailable SANDHYA ARAYA Attending Clinician Unavailable Gillian Reno MD Attending Clinician + [phone] PAIGE MELISSA Attending Clinician Unavailable Winifred James NP Attending Clinician +[phone] Paige Melissa MD Attending Clinician +[phone] Juan Torres MD Attending Clinician CASTROARIANA BARAHONA S Attending Clinician Unavailable Castro PAC, Ariana S Attending Clinician [phone] Lab, Ang-Rmchp Attending Clinician Unavailable Provider, [facility] Temp Attending Clinician Sharon WILBERT Evans Attending Clinician Unavailab CM Beckham Attending Clinician Unavailable WINIFRED JAMES Attending Clinician Unavailable SULEIMAN LOERA Attending Clinician Unavailable Matheus TOWBOAT CAPTAIN, Suleiman Attending Clinician [phone] MOF, LOUISE Piedra Attending Clinician Unavailable Jonh TOWBOAT CAPTAIN, Wilbert Jaffe Attending Clinician + [phone] Mof TOWBOAT CAPTAIN, Louise Piedra Attending Clinician +[phone] Sydnie PRABHAKARP-CJamie Attending Clinician +[phone] ARMINDARITO Attending Clinician Unavailable JAMIE WALL Attending Clinician UnavailJAMIE López Attending Clinician UnavailPriyank COPELAND, Sam Downing Attending Clinician [phone] Lara Atkinson RN Attending Clinician Unavailable Juan Marshall DO Attending Clinician [phone] Radha Hawkins MD Attending Clinician +[phone] RADHA HAWKINS Attending Clinician UnavailSam Poe Attending Clinician Unavailable Anil JOHNSTON, Luisa Jaffe Attending Clinician +[phone] LUISA LUNA Attending Clinician Unavailable Jessica Bob MD Attending Clinician +[phone] JESSICA BOB Attending Clinician Unavailable MANAN PÉREZ III Attending Clinician Unavaila Manan Fernandes Attending Clinician +[phone] BANDAR BACA Admitting Clinician Unavailable JESSICA TORRES Admitting Clinician Unavailab CARLITO Lewis Admitting Clinician Unavailable LORENA KIRK Admitting Clinician Unavailable Lorena Kirk MD Admitting Clinician [phone] GAURAV JOHN Admitting Clinician Unavailable DEB BENAVIDEZ Admitting Clinician Unavailab MARIAJOSE James Admitting Clinician Unavailable Mariajose Ramsey MD Admitting Clinician Physician, No Primary or Family Admitting Clinic win Unavailable JUAN TORRES Admitting Clinician Unavailable Juan Torres MD Admitting Clinician [phone] ARIANA CASTRO Admitting Clinician Unavailable INOCENCIO Admitting Clinician Unavailable RADHA HAWKINS Admitting Clinician UnavailSam Poe Admitting Clinician Unavailable LUISA LUNA Admitting Clinician Unavailable JESSICA BOB Admitting Clinician Unavailable MANAN PÉREZ III Admitting Clinician Unavailmarlene pizarro Payers Payer Name Policy Type Policy Number Effective Date Expirati on Date Source [facility] [id number] 2022 00:00:00 [place] [id number] 2022 00:00:00 MEDICAID PENDING PENDING 2022 00:00:00 [facility] [id number] 2020 00:00:00 Problems Condition Name Condition Details Condition Category Status Onset Date Resolution Date Last Treatment Date Treating Clinician Comments Source NADYA (obstructi ve sleep apnea) NADYA (obstructi ve sleep apnea) Disease Active 2022-06 2- 00:00: 00 [facility] Status migrainosu s Status migrainosu s Disease Active 2022-06- 00:00: 00 [facility] Status post hysterosco py Status post hysterosco py Disease Active 2022-06 00:00: 00 [facility] Observed seizure-li ke activity Observed seizure-li ke activity Disease Active 2022-06 1- 00:00: 00 [facility] Positive LAST (antinucle ar antibody) Positive LAST (antinucle ar antibody) Disease Active 2022-06 0-20 00:00: 00 [facility] 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 Address pp [facility] UTI (urinary tract infection) during UTI (urinary tract infection) during Disease Active 6-24 00:00: 00 [facility] Obesity in Obesity in Disease Active 6-23 00:00: 00 [facility] Supervisio n of high-risk Supervisio n of high-risk Disease Active 6-23 00:00: 00 [facility] Multiparit y Multiparit y Disease Active 6-23 00:00: 00 [facility] Previous delivery affecting , antepartum Previous delivery affecting , antepartum Disease Active 6-23 00:00: 00 Overview: Formattin g of this note might be different from the original. x4 will need follow up usg at 28-30week s for placenta [facility] Ovarian cyst, left Ovarian cyst, left Disease Active 5-04 00:00: 00 [facility] Miscarriag e Miscarriag e Disease Active 4-08 00:00: 00 [facility] Maternal varicella, non-immune Maternal varicella, non-immune Disease Active 2-23 00:00: 00 [facility] Heartburn in Heartburn in Disease Active 2-21 00:00: 00 [facility] History of gestationa l hypertensi on History of gestationa l hypertensi on Disease Active 2-21 00:00: 00 [facility] History of arthritis History of arthritis Disease Active 2-21 00:00: 00 [facility] Hx of maternal blood transfusio n, currently Hx of maternal blood transfusio n, currently Disease Active 2-21 00:00: 00 [facility] Nausea and vomiting during Nausea and vomiting during Disease Active 2-21 00:00: 00 [facility] Chronic anemia Chronic anemia Disease Active 2-21 00:00: 00 [facility] Dysmenorrh ea Dysmenorrh ea Disease Active 2021-06 0-29 00:00: 00 [facility] History of breast pain History of breast pain Disease Active 2021-06 0-29 00:00: 00 [facility] Breakthrou gh bleeding on contracept debra patch Breakthrou gh bleeding on contracept debra patch Disease Active 2021-06 029 00:00: 00 [facility] Fibrocysti c breast disease (FCBD), unspecifie d laterality Fibrocysti c breast disease (FCBD), unspecifie d laterality Disease Active 2021-06 0-14 00:00: 00 [facility] Irregular menstrual cycle Irregular menstrual cycle Disease Active 2021-06 0-14 00:00: 00 [facility] Pain of both breasts Pain of both breasts Disease Active 2021-06 0-14 00:00: 00 [facility] Screening for malignant neoplasm of the cervix Screening for malignant neoplasm of the cervix Disease Active 2021-06 0-13 00:00: 00 [facility] Encounter for surveillan ce of transderma l patch hormonal contracept debra device Encounter for surveillan ce of transderma l patch hormonal contracept debra device Disease Active 2021-06 0-13 00:00: 00 [facility] Itching of vagina Itching of vagina Disease Active 5-24 00:00: 00 [facility] Dysuria Dysuria Disease Active 5-24 00:00: 00 [facility] Class 2 obesity with body mass index (BMI) of 35.0 to 35.9 in adult, unspecifie d obesity type, unspecifie d whether serious comorbidit y present Class 2 obesity with body mass index (BMI) of 35.0 to 35.9 in adult, unspecifie d obesity type, unspecifie d whether serious comorbidit y present Disease Active 06-27 00:00: 00 [facility] Need for HPV vaccinatio n Need for HPV vaccinatio n Disease Active 06-27 00:00: 00 [facility] Screening examinatio n for STD (sexually transmitte d disease) Screening examinatio n for STD (sexually transmitte d disease) Disease Active 2017-06 00:00: 00 [facility] Previous delivery affecting , antepartum Previous delivery affecting , antepartum Disease Active 07-22 00:00: 00 [facility] Overweight (BMI 25.0-29.9) Overweight (BMI 25.0-29.9) Disease Active 07-22 00:00: 00 [facility] Obesity affecting Obesity affecting Disease Active 07-22 00:00: 00 [facility] Overweight Overweight Disease Active 07-22 00:00: 00 [facility] BMI 35.0-35.9, adult BMI 35.0-35.9, adult Disease Active 09-24 00:00: 00 [facility] Anemia of mother in , antepartum Anemia of mother in , antepartum Disease Active 08-20 00:00: 00 [facility] Anxiety and depression affecting Anxiety and depression affecting Disease Active 2015-06 00:00: 00 [facility] Depression , unspecifie d depression type Depression , unspecifie d depression type Disease Active 02-10 00:00: 00 [facility] Allergies, Adverse Reactions, Alerts Allergy Name Allergy Type Status Severity Reaction(s) Onset Date Inactive Date Treating Clinician Comments Source No Known Allergie s DA Active U 12-17 00:00: 00 [facility]IL[facility] Iodine Drug Allergy Active Swelling 07-22 00:00: 00 [facility] Iodine Propensi ty to adverse reaction s Active Swelling 07-22 00:00: 00 [facility] IODINE DRUG INGREDI Active High Anaphylaxis 07-22 00:00: 00 [facility] Social History Social Habit Start Date Stop Date Quantity Comments Source ASSERTION 2022-11-09 00:00:00 [facility] Alcohol intake 2023-08-25 00:00:00 2023-08-25 00:00:00 Ex-drinker (finding) [facility] History of Social function 2023-04-26 00:00:00 2023-04-26 00:00:00 [facility] Tobacco use and exposure 2023-01-09 00:00:00 2023-01-09 00:00:00 Smokeless tobacco non-user [facility] Exposure to SARS-CoV-2 (event) 2022-12-01 00:00:00 2022-12-11 09:58:00 Not sure [facility] History SDOH Alcohol Frequency 2020-06-27 00:00:00 2020-06-27 00:00:00 3 [facility] History SDOH Alcohol Std Drinks 2020-06-27 00:00:00 2020-06-27 00:00:00 99 [facility] History SDOH Alcohol Binge 2020-06-27 00:00:00 2020-06-27 00:00:00 99 [facility] Alcohol Comment 2020-06-27 00:00:00 2020-06-27 00:00:00 on occassion, liquor and beer on occassions. [facility] Sex Assigned At 1995 00:00:00 1995 00:00:00 [facility] Smoking Status Start Date Stop Date Source Never smoked tobacco [facility] Medications Ordered Medication Name Filled Medication Name Start Date Stop Date Current Medication? Ordering Clinician Indication Dosage Frequency Signature (SIG) Comments Components Source nortriptyli ne 50 mg capsule 08-16 00:00: 00 Yes [id number] 1-2 po QHS [facility] sumatriptan (IMITREX) 100 mg tablet 08-16 00:00: 00 Yes [id number] 100mg Take 1 tablet by mouth as needed for Migraine. May repeat in 2h if headache remains [facility] ondansetron 4 mg disintegrat ing tablet 08-16 00:00: 00 Yes [id number] 4mg Take 1 tablet by mouth every 8 (eight) hours as needed for Nausea and Vomiting (N/V). [facility]- acetaminoph en-caff 50-325-40 mg tablet 08-16 00:00: 00 Yes [id number] 1{tbl} Take 1 tablet by mouth every 4 (four) hours as needed (severe migraine). Use sparingly no more than 9 days per month [facility] nortriptyli ne 50 mg capsule 08-16 00:00: 00 Yes [id number] 1-2 po QHS [facility] sumatriptan (IMITREX) 100 mg tablet 08-16 00:00: 00 Yes [id number] 100mg Take 1 tablet by mouth as needed for Migraine. May repeat in 2h if headache remains [facility] ondansetron 4 mg disintegrat ing tablet 08-16 00:00: 00 Yes [id number] 4mg Take 1 tablet by mouth every 8 (eight) hours as needed for Nausea and Vomiting (N/V). [facility] butalbital- acetaminoph en-caff 50-325-40 mg tablet 08-16 00:00: 00 Yes [id number] 1{tbl} Take 1 tablet by mouth every 4 (four) hours as needed (severe migraine). Use sparingly no more than 9 days per month [facility] nortriptyli ne 50 mg capsule 08-16 00:00: 00 Yes [id number] 1-2 po [facility] 100 mg tablet 08-16 00:00: 00 Yes [id number] 100mg Take 1 tablet by mouth as needed for Migraine. May repeat in 2h if headache remains [facility] ondansetron 4 mg disintegrat ing tablet 08-16 00:00: 00 Yes [id number] 4mg Take 1 tablet by mouth every 8 (eight) hours as needed for Nausea and Vomiting (N/V). [facility] butalbital- acetaminoph en-caff 50-325-40 mg tablet 08-16 00:00: 00 Yes [id number] 1{tbl} Take 1 tablet by mouth every 4 (four) hours as needed (severe migraine). Use sparingly no more than 9 days per month [facility] nortriptyli ne 50 mg capsule 08-16 00:00: 00 Yes [id number] 1-2 po QHS [facility] sumatriptan (IMITREX) 100 mg tablet 08-16 00:00: 00 Yes [id number] 100mg Take 1 tablet by mouth as needed for Migraine. May repeat in 2h if headache remains [facility] ondansetron 4 mg disintegrat ing tablet 08-16 00:00: 00 Yes [id number] 4mg Take 1 tablet by mouth every 8 (eight) hours as needed for Nausea and Vomiting (N/V). [facility] butalbital- acetaminoph en-caff 50-325-40 mg tablet 08-16 00:00: 00 Yes [id number] 1{tbl} Take 1 tablet by mouth every 4 (four) hours as needed (severe migraine). Use sparingly no more than 9 days per month [facility] nortriptyli ne 50 mg capsule 08-16 00:00: 00 Yes [id number] 1-2 po QHS [facility] sumatriptan (IMITREX) 100 mg tablet 08-16 00:00: 00 Yes [id number] 100mg Take 1 tablet by mouth as needed for Migraine. May repeat in 2h if headache remains [facility] ondansetron 4 mg disintegrat ing tablet 08-16 00:00: 00 Yes [id number] 4mg Take 1 tablet by mouth every 8 (eight) hours as needed for Nausea and Vomiting (N/V). [facility] butalbital- acetaminoph en-caff 50-325-40 mg tablet 08-16 00:00: 00 Yes [id number] 1{tbl} Take 1 tablet by mouth every 4 (four) hours as needed (severe migraine). Use sparingly no more than 9 days per month [facility] nortriptyli ne 50 mg capsule 08-16 00:00: 00 Yes [id number] 1-2 po QHS [facility] sumatriptan (IMITREX) 100 mg tablet 08-16 00:00: 00 Yes [id number] 100mg Take 1 tablet by mouth as needed for Migraine. May repeat in 2h if headache remains [facility] ondansetron 4 mg disintegrat ing tablet 08-16 00:00: 00 Yes [id number] 4mg Take 1 tablet by mouth every 8 (eight) hours as needed for Nausea and Vomiting (N/V). [facility] butalbital- acetaminoph en-caff 50-325-40 mg tablet 08-16 00:00: 00 Yes [id number] 1{tbl} Take 1 tablet by mouth every 4 (four) hours as needed (severe migraine). Use sparingly no more than 9 days per month [facility] nortriptyli ne 50 mg capsule 08-16 00:00: 00 Yes [id number] 1-2 po QHS [facility] sumatriptan (IMITREX) 100 mg tablet 08-16 00:00: 00 Yes [id number] 100mg Take 1 tablet by mouth as needed for Migraine. May repeat in 2h if headache remains [facility] ondansetron 4 mg disintegrat ing tablet 08-16 00:00: 00 Yes [id number] 4mg Take 1 tablet by mouth every 8 (eight) hours as needed for Nausea and Vomiting (N/V). [facility] butalbital- acetaminoph en-caff 50-325-40 mg tablet 08-16 00:00: 00 Yes [id number] 1{tbl} Take 1 tablet by mouth every 4 (four) hours as needed (severe migraine). Use sparingly no more than 9 days per month [facility] nortriptyli ne 50 mg capsule 08-16 00:00: 00 Yes [id number] 1-2 po QHS [facility] sumatriptan (IMITREX) 100 mg tablet 08-16 00:00: 00 Yes [id number] 100mg Take 1 tablet by mouth as needed for Migraine. May repeat in 2h if headache remains [facility] ondansetron 4 mg disintegrat ing tablet 08-16 00:00: 00 Yes [id number] 4mg Take 1 tablet by mouth every 8 (eight) hours as needed for Nausea and Vomiting (N/V). [facility] butalbital- acetaminoph en-caff 50-325-40 mg tablet 08-16 00:00: 00 Yes [id number] 1{tbl} Take 1 tablet by mouth every 4 (four) hours as needed (severe migraine). Use sparingly no more than 9 days per month [facility] nortriptyli ne 50 mg capsule 08-16 00:00: 00 Yes [id number] 1-2 po QHS [facility] sumatriptan (IMITREX) 100 mg tablet 08-16 00:00: 00 Yes [id number] 100mg Take 1 tablet by mouth as needed for Migraine. May repeat in 2h if headache remains [facility] ondansetron 4 mg disintegrat ing tablet 08-16 00:00: 00 Yes [id number] 4mg Take 1 tablet by mouth every 8 (eight) hours as needed for Nausea and Vomiting (N/V). [facility] butalbital- acetaminoph en-caff 50-325-40 mg tablet 08-16 00:00: 00 Yes [id number] 1{tbl} Take 1 tablet by mouth every 4 (four) hours as needed (severe migraine). Use sparingly no more than 9 days per month [facility] azelastine 137 mcg (0.1 %) nasal spray 07-21 00:00: 00 Yes [id number] 1{spray } USE 1 SPRAY IN EACH NOSTRIL IN THE MORNING AND 1 SPRAY IN THE EVENING DIRECTED [facility] azelastine 137 mcg (0.1 %) nasal spray 07-21 00:00: 00 Yes [id number] 1{spray } USE 1 SPRAY IN EACH NOSTRIL IN THE MORNING AND 1 SPRAY IN THE EVENING DIRECTED [facility] azelastine 137 mcg (0.1 %) nasal spray 07-21 00:00: 00 Yes [id number] 1{spray } USE 1 SPRAY IN EACH NOSTRIL IN THE MORNING AND 1 SPRAY IN THE EVENING DIRECTED [facility] azelastine 137 mcg (0.1 %) nasal spray 07-21 00:00: 00 Yes [id number] 1{spray } USE 1 SPRAY IN EACH NOSTRIL IN THE MORNING AND 1 SPRAY IN THE EVENING DIRECTED [facility] azelastine 137 mcg (0.1 %) nasal spray 07-21 00:00: 00 Yes [id number] 1{spray } USE 1 SPRAY IN EACH NOSTRIL IN THE MORNING AND 1 SPRAY IN THE EVENING DIRECTED [facility] azelastine 137 mcg (0.1 %) nasal spray 07-21 00:00: 00 Yes [id number] 1{spray } USE 1 SPRAY IN EACH NOSTRIL IN THE MORNING AND 1 SPRAY IN THE EVENING DIRECTED [facility] azelastine 137 mcg (0.1 %) nasal spray 07-21 00:00: 00 Yes [id number] 1{spray } USE 1 SPRAY IN EACH NOSTRIL IN THE MORNING AND 1 SPRAY IN THE EVENING DIRECTED [facility] azelastine 137 mcg (0.1 %) nasal spray 07-21 00:00: 00 Yes [id number] 1{spray } USE 1 SPRAY IN EACH NOSTRIL IN THE MORNING AND 1 SPRAY IN THE EVENING DIRECTED [facility] azelastine 137 mcg (0.1 %) nasal spray 07-21 00:00: 00 Yes [id number] 1{spray } USE 1 SPRAY IN EACH NOSTRIL IN THE MORNING AND 1 SPRAY IN THE EVENING DIRECTED [facility] azelastine 137 mcg (0.1 %) nasal spray 07-21 00:00: 00 Yes [id number] 1{spray } USE 1 SPRAY IN EACH NOSTRIL IN THE MORNING AND 1 SPRAY IN THE EVENING DIRECTED [facility] azelastine 137 mcg (0.1 %) nasal spray 07-21 00:00: 00 Yes [id number] 1{spray } USE 1 SPRAY IN EACH NOSTRIL IN THE MORNING AND 1 SPRAY IN THE EVENING DIRECTED [facility] azelastine 137 mcg (0.1 %) nasal spray 07-21 00:00: 00 Yes [id number] 1{spray } USE 1 SPRAY IN EACH NOSTRIL IN THE MORNING AND 1 SPRAY IN THE EVENING DIRECTED [facility] azelastine 137 mcg (0.1 %) nasal spray 07-21 00:00: 00 Yes [id number] 1{spray } USE 1 SPRAY IN EACH NOSTRIL IN THE MORNING AND 1 SPRAY IN THE EVENING DIRECTED [facility] azelastine 137 mcg (0.1 %) nasal spray 07-21 00:00: 00 Yes [id number] 1{spray } USE 1 SPRAY IN EACH NOSTRIL IN THE MORNING AND 1 SPRAY IN THE EVENING DIRECTED [facility] azelastine 137 mcg (0.1 %) nasal spray 07-21 00:00: 00 Yes [id number] 1{spray } USE 1 SPRAY IN EACH NOSTRIL IN THE MORNING AND 1 SPRAY IN THE EVENING DIRECTED [facility] azelastine 137 mcg (0.1 %) nasal spray 07-21 00:00: 00 Yes [id number] 1{spray } USE 1 SPRAY IN EACH NOSTRIL IN THE MORNING AND 1 SPRAY IN THE EVENING DIRECTED [facility] azelastine 137 mcg (0.1 %) nasal spray 07-21 00:00: 00 Yes [id number] 1{spray } USE 1 SPRAY IN EACH NOSTRIL IN THE MORNING AND 1 SPRAY IN THE EVENING DIRECTED [facility] azelastine 137 mcg (0.1 %) nasal spray 07-21 00:00: 00 Yes [id number] 1{spray } USE 1 SPRAY IN EACH NOSTRIL IN THE MORNING AND 1 SPRAY IN THE EVENING DIRECTED [facility] azelastine 137 mcg (0.1 %) nasal spray 07-21 00:00: 00 Yes [id number] 1{spray } USE 1 SPRAY IN EACH NOSTRIL IN THE MORNING AND 1 SPRAY IN THE EVENING DIRECTED [facility] azelastine 137 mcg (0.1 %) nasal spray 07-21 00:00: 00 Yes [id number] 1{spray } USE 1 SPRAY IN EACH NOSTRIL IN THE MORNING AND 1 SPRAY IN THE EVENING DIRECTED [facility] azelastine 137 mcg (0.1 %) nasal spray 07-21 00:00: 00 Yes [id number] 1{spray } USE 1 SPRAY IN EACH NOSTRIL IN THE MORNING AND 1 SPRAY IN THE EVENING DIRECTED [facility] azelastine 137 mcg (0.1 %) nasal spray 07-21 00:00: 00 Yes [id number] 1{spray } USE 1 SPRAY IN EACH NOSTRIL IN THE MORNING AND 1 SPRAY IN THE EVENING DIRECTED [facility] azelastine 137 mcg (0.1 %) nasal spray 07-21 00:00: 00 Yes [id number] 1{spray } USE 1 SPRAY IN EACH NOSTRIL IN THE MORNING AND 1 SPRAY IN THE EVENING DIRECTED [facility] azelastine 137 mcg (0.1 %) nasal spray 07-21 00:00: 00 Yes [id number] 1{spray } USE 1 SPRAY IN EACH NOSTRIL IN THE MORNING AND 1 SPRAY IN THE EVENING DIRECTED [facility] azelastine 137 mcg (0.1 %) nasal spray 07-21 00:00: 00 Yes [id number] 1{spray } USE 1 SPRAY IN EACH NOSTRIL IN THE MORNING AND 1 SPRAY IN THE EVENING DIRECTED [facility] azelastine 137 mcg (0.1 %) nasal spray 0 1-31 00:00: 00 Yes [id number] 1{spray } USE 1 SPRAY IN EACH NOSTRIL IN THE MORNING AND 1 SPRAY IN THE EVENING DIRECTED [facility] gabapentin 300 mg capsule 4-0 1-17 00:00: 00 Yes [id number] 300mg Take 1 capsule by mouth 3 (three) times daily as needed (pain). [facility] gabapentin 300 mg capsule 4-0 1-17 00:00: 00 Yes [id number] 300mg Take 1 capsule by mouth 3 (three) times daily as needed (pain). [facility] gabapentin 300 mg capsule 2023-0 1-17 00:00: 00 Yes [id number] 300mg Take 1 capsule by mouth 3 (three) times daily as needed (pain). [facility] gabapentin 300 mg capsule 4-0 1-17 00:00: 00 Yes [id number] 300mg Take 1 capsule by mouth 3 (three) times daily as needed (pain). [facility] gabapentin 300 mg capsule 4-0 1-17 00:00: 00 Yes [id number] 300mg Take 1 capsule by mouth 3 (three) times daily as needed (pain). [facility] gabapentin 300 mg capsule 2023-0 1-17 00:00: 00 Yes [id number] 300mg Take 1 capsule by mouth 3 (three) times daily as needed (pain). [facility] gabapentin 300 mg capsule 4-0 1-17 00:00: 00 Yes [id number] 300mg Take 1 capsule by mouth 3 (three) times daily as needed (pain). [facility] gabapentin 300 mg capsule 4-0 1-17 00:00: 00 Yes [id number] 300mg Take 1 capsule by mouth 3 (three) times daily as needed (pain). [facility] gabapentin 300 mg capsule 4-0 1-17 00:00: 00 Yes [id number] 300mg Take 1 capsule by mouth 3 (three) times daily as needed (pain). [facility] gabapentin 300 mg capsule 4-0 1-17 00:00: 00 Yes [id number] 300mg Take 1 capsule by mouth 3 (three) times daily as needed (pain). [facility] gabapentin 300 mg capsule 4-0 1-17 00:00: 00 Yes [id number] 300mg Take 1 capsule by mouth 3 (three) times daily as needed (pain). [facility] gabapentin 300 mg capsule 2024-0 1-17 00:00: 00 Yes [id number] 300mg Take 1 capsule by mouth 3 (three) times daily as needed (pain). [facility] gabapentin 300 mg capsule 2024-0 1-17 00:00: 00 Yes [id number] 300mg Take 1 capsule by mouth 3 (three) times daily as needed (pain). [facility] mg capsule 4-0 1-17 00:00: 00 Yes [id number] 300mg Take 1 capsule by mouth 3 (three) times daily as needed (pain). [facility] mg capsule 2024-0 1-17 00:00: 00 Yes [id number] 300mg Take 1 capsule by mouth 3 (three) times daily as needed (pain). [facility] mg capsule 4-0 1-17 00:00: 00 Yes [id number] 300mg Take 1 capsule by mouth 3 (three) times daily as needed (pain). [facility] gabapentin 300 mg capsule 4-0 1-17 00:00: 00 Yes [id number] 300mg Take 1 capsule by mouth 3 (three) times daily as needed (pain). [facility] mg capsule 2024-0 1-17 00:00: 00 Yes [id number] 300mg Take 1 capsule by mouth 3 (three) times daily as needed (pain). [facility] mg capsule 2024-0 1-17 00:00: 00 Yes [id number] 300mg Take 1 capsule by mouth 3 (three) times daily as needed (pain). [facility] mg capsule 2024-0 1-17 00:00: 00 Yes [id number] 300mg Take 1 capsule by mouth 3 (three) times daily as needed (pain). [facility] mg capsule 2024-0 1-17 00:00: 00 Yes [id number] 300mg Take 1 capsule by mouth 3 (three) times daily as needed (pain). [facility] gabapentin 300 mg capsule 2024-0 1-17 00:00: 00 Yes [id number] 300mg Take 1 capsule by mouth 3 (three) times daily as needed (pain). [facility] gabapentin 300 mg capsule 2024-0 1-17 00:00: 00 Yes [id number] 300mg Take 1 capsule by mouth 3 (three) times daily as needed (pain). [facility] gabapentin 300 mg capsule 2024-0 1-17 00:00: 00 Yes [id number] 300mg Take 1 capsule by mouth 3 (three) times daily as needed (pain). [facility] gab[facility] mg capsule 2024-0 1-17 00:00: 00 Yes [id number] 300mg Take 1 capsule by mouth 3 (three) times daily as needed (pain). [facility] gabapentin 300 mg capsule 2024-0 1-17 00:00: 00 Yes [id number] 300mg Take 1 capsule by mouth 3 (three) times daily as needed (pain). [facility] gabapentin 300 mg capsule 2024-0 1-17 00:00: 00 Yes [id number] 300mg Take 1 capsule by mouth 3 (three) times daily as needed (pain). [facility] gabapentin 300 mg capsule 2024-0 1-17 00:00: 00 Yes [id number] 300mg Take 1 capsule by mouth 3 (three) times daily as needed (pain). [facility] gab[facility] mg capsule 2024-0 1-17 00:00: 00 Yes [id number] 300mg Take 1 capsule by mouth 3 (three) times daily as needed (pain). [facility] gabapentin 300 mg capsule 2024-0 1-17 00:00: 00 Yes [id number] 300mg Take 1 capsule by mouth 3 (three) times daily as needed (pain). [facility] gabapentin 300 mg capsule 2024-0 1-17 00:00: 00 Yes [id number] 300mg Take 1 capsule by mouth 3 (three) times daily as needed (pain). [facility] gabapentin 300 mg capsule 2023-0 -17 00:00: 00 Yes [id number] 300mg Take 1 capsule by mouth 3 (three) times daily as needed (pain). [facility] gabapentin 300 mg capsule 4-0 17 00:00: 00 07-07 00:00 :00 No [id number] 300mg Take 1 capsule by mouth in the morning and 1 capsule at noon and 1 capsule in the evening. Do all this for 30 days. [facility] gabapentin 300 mg capsule 2023-0 17 00:00: 00 07-07 00:00 :00 No [id number] 300mg Take 1 capsule by mouth in the morning and 1 capsule at noon and 1 capsule in the evening. Do all this for 30 days. [facility] gabapentin 300 mg capsule 2023-0 07-07 00:00: 00 07-07 00:00 :00 No [id number] 300mg Take 1 capsule by mouth in the morning and 1 capsule at noon and 1 capsule in the evening. Do all this for 30 days. [facility] methocarbam oL 750 mg tablet 2023-0 -16 00:00: 00 Yes 750mg Take 1 tablet by mouth 3 (three) times daily as needed for Other (muscle spasms). [facility] methocarbam oL 750 mg tablet 4-0 -16 00:00: 00 Yes 750mg Take 1 tablet by mouth 3 (three) times daily as needed for Other (muscle spasms). [facility] methocarbam oL 750 mg tablet 4-0 1-16 00:00: 00 Yes 750mg Take 1 tablet by mouth 3 (three) times daily as needed for Other (muscle spasms). [facility] methocarbam oL 750 mg tablet 4-0 -16 00:00: 00 Yes 750mg Take 1 tablet by mouth 3 (three) times daily as needed for Other (muscle spasms). [facility] methocarbam oL 750 mg tablet 4-0 1-16 00:00: 00 Yes 750mg Take 1 tablet by mouth 3 (three) times daily as needed for Other (muscle spasms). [facility] methocarbam oL 750 mg tablet 4-0 1-16 00:00: 00 Yes 750mg Take 1 tablet by mouth 3 (three) times daily as needed for Other (muscle spasms). [facility] methocarbam oL 750 mg tablet 4-0 1-16 00:00: 00 Yes 750mg Take 1 tablet by mouth 3 (three) times daily as needed for Other (muscle spasms). [facility] methocarbam oL 750 mg tablet 4-0 1-16 00:00: 00 Yes 750mg Take 1 tablet by mouth 3 (three) times daily as needed for Other (muscle spasms). [facility] methocarbam oL 750 mg tablet 4-0 -16 00:00: 00 Yes 750mg Take 1 tablet by mouth 3 (three) times daily as needed for Other (muscle spasms). [facility] methocarbam oL 750 mg tablet 4-0 -16 00:00: 00 Yes 750mg Take 1 tablet by mouth 3 (three) times daily as needed for Other (muscle spasms). [facility] methocarbam oL 750 mg tablet 4-0 -16 00:00: 00 Yes 750mg Take 1 tablet by mouth 3 (three) times daily as needed for Other (muscle spasms). [facility] methocarbam oL 750 mg tablet 4-0 1-16 00:00: 00 Yes 750mg Take 1 tablet by mouth 3 (three) times daily as needed for Other (muscle spasms). [facility] methocarbam oL 750 mg tablet 4-0 1-16 00:00: 00 Yes 750mg Take 1 tablet by mouth 3 (three) times daily as needed for Other (muscle spasms). [facility] methocarbam oL 750 mg tablet 4-0 1-16 00:00: 00 Yes 750mg Take 1 tablet by mouth 3 (three) times daily as needed for Other (muscle spasms). [facility] methocarbam oL 750 mg tablet 4-0 1-16 00:00: 00 Yes 750mg Take 1 tablet by mouth 3 (three) times daily as needed for Other (muscle spasms). [facility] methocarbam oL 750 mg tablet 4-0 1-16 00:00: 00 Yes 750mg Take 1 tablet by mouth 3 (three) times daily as needed for Other (muscle spasms). [facility] methocarbam oL 750 mg tablet 4-0 1-16 00:00: 00 Yes 750mg Take 1 tablet by mouth 3 (three) times daily as needed for Other (muscle spasms). [facility] methocarbam oL 750 mg tablet 4-0 1-16 00:00: 00 Yes 750mg Take 1 tablet by mouth 3 (three) times daily as needed for Other (muscle spasms). [facility] methocarbam oL 750 mg tablet 4-0 -16 00:00: 00 Yes 750mg Take 1 tablet by mouth 3 (three) times daily as needed for Other (muscle spasms). [facility] methocarbam oL 750 mg tablet 4-0 -16 00:00: 00 Yes 750mg Take 1 tablet by mouth 3 (three) times daily as needed for Other (muscle spasms). [facility] methocarbam oL 750 mg tablet 4-0 -16 00:00: 00 Yes 750mg Take 1 tablet by mouth 3 (three) times daily as needed for Other (muscle spasms). [facility] methocarbam oL 750 mg tablet 4-0 1-16 00:00: 00 Yes 750mg Take 1 tablet by mouth 3 (three) times daily as needed for Other (muscle spasms). [facility] methocarbam oL 750 mg tablet 4-0 1-16 00:00: 00 Yes 750mg Take 1 tablet by mouth 3 (three) times daily as needed for Other (muscle spasms). [facility] methocarbam oL 750 mg tablet 4-0 1-16 00:00: 00 Yes 750mg Take 1 tablet by mouth 3 (three) times daily as needed for Other (muscle spasms). [facility] methocarbam oL 750 mg tablet 4-0 1-16 00:00: 00 Yes 750mg Take 1 tablet by mouth 3 (three) times daily as needed for Other (muscle spasms). [facility] methocarbam oL 750 mg tablet 0 16 00:00: 00 Yes 750mg Take 1 tablet by mouth 3 (three) times daily as needed for Other (muscle spasms). [facility] methocarbam oL 750 mg tablet 0 16 00:00: 00 Yes 750mg Take 1 tablet by mouth 3 (three) times daily as needed for Other (muscle spasms). [facility] methocarbam oL 750 mg tablet 0 16 00:00: 00 Yes 750mg Take 1 tablet by mouth 3 (three) times daily as needed for Other (muscle spasms). [facility] methocarbam oL 750 mg tablet 16 00:00: 00 Yes 750mg Take 1 tablet by mouth 3 (three) times daily as needed for Other (muscle spasms). [facility] methocarbam oL 750 mg tablet 0 16 00:00: 00 Yes 750mg Take 1 tablet by mouth 3 (three) times daily as needed for Other (muscle spasms). [facility] methocarbam oL 750 mg tablet 16 00:00: 00 Yes 750mg Take 1 tablet by mouth 3 (three) times daily as needed for Other (muscle spasms). [facility] methocarbam oL 750 mg tablet 0 16 00:00: 00 Yes 750mg Take 1 tablet by mouth 3 (three) times daily as needed for Other (muscle spasms). [facility] methocarbam oL 750 mg tablet 0 16 00:00: 00 Yes 750mg Take 1 tablet by mouth 3 (three) times daily as needed for Other (muscle spasms). [facility] methocarbam oL 750 mg tablet 0 16 00:00: 00 Yes 750mg Take 1 tablet by mouth 3 (three) times daily as needed for Other (muscle spasms). [facility] Nitrofurant oin&Nit. Macrocryst (MACROBID) 100 mg capsule -15 00:00: 00 07-16 05:59 :00 Yes [id number] 100mg Take 1 capsule by mouth in the morning and 1 capsule in the evening. Do all this for 10 days. [facility] Nitrofurant oin&Nit. Macrocryst (MACROBID) 100 mg capsule 2023-0 1-15 00:00: 00 07-16 05:59 :00 Yes [id number] 100mg Take 1 capsule by mouth in the morning and 1 capsule in the evening. Do all this for 10 days. [facility] Nitrofurant oin&Nit. Macrocryst (MACROBID) 100 mg capsule 2023-0 15 00:00: 00 07-16 05:59 :00 Yes [id number] 100mg Take 1 capsule by mouth in the morning and 1 capsule in the evening. Do all this for 10 days. [facility] Nitrofurant oin&Nit. Macrocryst (MACROBID) 100 mg capsule 2023-0 15 00:00: 00 07-16 05:59 :00 Yes [id number] 100mg Take 1 capsule by mouth in the morning and 1 capsule in the evening. Do all this for 10 days. [facility] Nitrofurant oin&Nit. Macrocryst (MACROBID) 100 mg capsule 2023-0 15 00:00: 00 07-16 05:59 :00 Yes [id number] 100mg Take 1 capsule by mouth in the morning and 1 capsule in the evening. Do all this for 10 days. [facility] Nitrofurant oin&Nit. Macrocryst (MACROBID) 100 mg capsule 2023-0 15 00:00: 00 07-16 05:59 :00 Yes [id number] 100mg Take 1 capsule by mouth in the morning and 1 capsule in the evening. Do all this for 10 days. [facility] Nitrofurant oin&Nit. Macrocryst (MACROBID) 100 mg capsule 2023-0 1-15 00:00: 00 07-16 05:59 :00 Yes [id number] 100mg Take 1 capsule by mouth in the morning and 1 capsule in the evening. Do all this for 10 days. [facility] Nitrofurant oin&Nit. Macrocryst (MACROBID) 100 mg capsule -15 00:00: 00 07-16 05:59 :00 Yes [id number] 100mg Take 1 capsule by mouth in the morning and 1 capsule in the evening. Do all this for 10 days. [facility] metroNIDAZO LE 500 mg tablet 07-02 00:00: 00 07-03 05:59 :00 Yes [id number] 2000mg Take 4 tablets by mouth once now for 1 dose. [facility] HYDROcodone -acetaminop hen 5-325 mg tablet 06-23 00:00: 00 07-01 05:59 :00 Yes [id number] 1{tbl} Take 1 tablet by mouth every 6 (six) hours as needed for Pain (scale 7-10) for up to 7 days. Indication s: acute pain [facility] HYDROcodone -acetaminop hen 5-325 mg tablet 06-23 00:00: 00 07-01 05:59 :00 Yes [id number] 1{tbl} Take 1 tablet by mouth every 6 (six) hours as needed for Pain (scale 7-10) for up to 7 days. Indication s: acute pain [facility] HYDROcodone -acetaminop hen 5-325 mg tablet 06-23 00:00: 00 07-01 05:59 :00 Yes [id number] 1{tbl} Take 1 tablet by mouth every 6 (six) hours as needed for Pain (scale 7-10) for up to 7 days. Indication s: acute pain [facility] ondansetron (ZOFRAN-ODT ) disintegrat ing tablet 4 mg 06-22 01:45: 00 06-22 00:58 :00 No 4mg 4 mg, Oral, ONCE, 1 dose, On Wed06/21/23 at 1945, Routine [facility] HYDROcodone -acetaminop hen (NORCO 5) 5-325 mg tablet 1 tablet 06-22 01:30: 00 06-22 00:53 :00 No 1{tbl} 1 tablet, Oral, ONCE, 1 dose, On Wed06/21/23 at 1930, Routine [facility] methocarbam oL (ROBAXIN) tablet 1,000 mg 06-22 01:00: 00 06-22 00:58 :00 No 1000mg 1,000 mg, Oral, ONCE, 1 dose, On Wed06/21/23 at 1900, [place] [facility] traMADoL 50 mg tablet 06-21 00:00: 00 06-29 05:59 :00 Yes [id number] 50mg Take 1 tablet by mouth every 6 (six) hours as needed for Pain (scale 1-3) for up to 7 days. Indication s: acute pain [facility] traMADoL 50 mg tablet 06-21 00:00: 00 06-29 05:59 :00 Yes [id number] 50mg Take 1 tablet by mouth every 6 (six) hours as needed for Pain (scale 1-3) for up to 7 days. Indication s: acute pain [facility] traMADoL 50 mg tablet 06-21 00:00: 00 06-29 05:59 :00 Yes [id number] 50mg Take 1 tablet by mouth every 6 (six) hours as needed for Pain (scale 1-3) for up to 7 days. Indication s: acute pain [facility] traMADoL 50 mg tablet 06-21 00:00: 00 06-29 05:59 :00 Yes [id number] 50mg Take 1 tablet by mouth every 6 (six) hours as needed for Pain (scale 1-3) for up to 7 days. Indication s: acute pain [facility] traMADoL 50 mg tablet 06-21 00:00: 00 06-29 05:59 :00 Yes [id number] 50mg Take 1 tablet by mouth every 6 (six) hours as needed for Pain (scale 1-3) for up to 7 days. Indication s: acute pain [facility] traMADoL 50 mg tablet 06-21 00:00: 00 06-29 05:59 :00 Yes [id number] 50mg Take 1 tablet by mouth every 6 (six) hours as needed for Pain (scale 1-3) for up to 7 days. Indication s: acute pain [facility] traMADoL 50 mg tablet 06-21 00:00: 00 06-29 05:59 :00 Yes [id number] 50mg Take 1 tablet by mouth every 6 (six) hours as needed for Pain (scale 1-3) for up to 7 days. Indication s: acute pain [facility] traMADoL 50 mg tablet 06-21 00:00: 00 06-29 05:59 :00 Yes [id number] 50mg Take 1 tablet by mouth every 6 (six) hours as needed for Pain (scale 1-3) for up to 7 days. Indication s: acute pain [facility] traMADoL 50 mg tablet 06-21 00:00: 00 06-29 05:59 :00 Yes [id number] 50mg Take 1 tablet by mouth every 6 (six) hours as needed for Pain (scale 1-3) for up to 7 days. Indication s: acute pain [facility] ondansetron (ZOFRAN-ODT ) disintegrat ing tablet 8 mg 2022-06 03:30: 00 06-17 02:39 :00 No [id number] 8mg [facility] methylPREDN ISolone sod succ (SOLU-MEDRO L (PF)) injection 40 mg 2022-06 03:30: 00 06-17 02:46 :00 No [id number] 40mg [facility] methylPREDN ISolone sod succ (SOLU-MEDRO L (PF)) injection 40 mg 2022-06 03:30: 00 06-17 02:46 :00 No [id number] 40mg 40 mg, Intramuscu lar, ONCE, 1 dose, On Wed06/16/23 at 2130, Routine [facility] ondansetron (ZOFRAN-ODT ) disintegrat ing tablet 8 mg 2022-06 03:30: 00 06-17 02:39 :00 No [id number] 8mg 8 mg, Oral, ONCE, 1 dose, On Wed06/16/23 at 2130, Routine [facility] ketorolac (TORADOL) injection 60 mg 2022-06 03:15: 00 06-17 02:47 :00 No [id number] 60mg [facility] methylpredn isolone sod succ (SOLU-MEDRO L) injection 125 mg 2022-06 03:15: 00 06-17 02:32 :47 No [id number] [facility] ([facility]OLIN[facility] 2 Puff 2022-06 03:15: 00 06-17 02:40 :00 No [id number] 2{puff} [facility] ([facility]OLIN[facility] inhaler 2 Puff 2022-06 03:15: 00 06-17 02:40 :00 No [id number] 2{puff} 2 Puff, Inhalation , ONCE, 1 dose, On Wed06/16/23 at 2115, Routine [facility] ketorolac (TORADOL) injection 60 mg 2022-06 03:15: 00 06-17 02:47 :00 No [id number] 60mg 60 mg, Intramuscu lar, ONCE, 1 dose, On Wed06/16/23 at 2115, Routine [facility] albuterol 90 mcg/actuati on inhaler 2022-06 00:00: 00 Yes [id number] 2{puff} Inhale 2 Puffs every 6 (six) hours as needed for Wheezing or Shortness of Breath. [facility] benzonatate 100 mg capsule 2022-06 00:00: 00 Yes [id number] 200mg Take 2 capsules by mouth every 8 (eight) hours as needed for Cough. [facility] albuterol 90 mcg/actuati on inhaler 2022-06 00:00: 00 Yes [id number] 2{puff} Inhale 2 Puffs every 6 (six) hours as needed for Wheezing or Shortness of Breath. [facility] benzonatate 100 mg capsule 2022-06 00:00: 00 Yes [id number] 200mg Take 2 capsules by mouth every 8 (eight) hours as needed for Cough. [facility] albuterol 90 mcg/actuati on inhaler 2022-06 00:00: 00 Yes [id number] 2{puff} Inhale 2 Puffs every 6 (six) hours as needed for Wheezing or Shortness of Breath. [facility] benzonatate 100 mg capsule 2022-06 00:00: 00 Yes [id number] 200mg Take 2 capsules by mouth every 8 (eight) hours as needed for Cough. [facility] albuterol 90 mcg/actuati on inhaler 2022-06 00:00: 00 Yes [id number] 2{puff} Inhale 2 Puffs every 6 (six) hours as needed for Wheezing or Shortness of Breath. [facility] benzonatate 100 mg capsule 2022-06 00:00: 00 Yes [id number] 200mg Take 2 capsules by mouth every 8 (eight) hours as needed for Cough. [facility] albuterol 90 mcg/actuati on inhaler 2022-06 00:00: 00 Yes [id number] 2{puff} Inhale 2 Puffs every 6 (six) hours as needed for Wheezing or Shortness of Breath. [facility] benzonatate 100 mg capsule 2022-06 00:00: 00 Yes [id number] 200mg Take 2 capsules by mouth every 8 (eight) hours as needed for Cough. [facility] albuterol 90 mcg/actuati on inhaler 2022-06 00:00: 00 Yes [id number] 2{puff} Inhale 2 Puffs every 6 (six) hours as needed for Wheezing or Shortness of Breath. [facility] benzonatate 100 mg capsule 2022-06 00:00: 00 Yes [id number] 200mg Take 2 capsules by mouth every 8 (eight) hours as needed for Cough. [facility] albuterol 90 mcg/actuati on inhaler 2022-06 00:00: 00 Yes [id number] 2{puff} Inhale 2 Puffs every 6 (six) hours as needed for Wheezing or Shortness of Breath. [facility] benzonatate 100 mg capsule 2022-06 00:00: 00 Yes [id number] 200mg Take 2 capsules by mouth every 8 (eight) hours as needed for Cough. [facility] albuterol 90 mcg/actuati on inhaler 2022-06 00:00: 00 Yes [id number] 2{puff} Inhale 2 Puffs every 6 (six) hours as needed for Wheezing or Shortness of Breath. [facility] benzonatate 100 mg capsule 2022-06 00:00: 00 Yes [id number] 200mg Take 2 capsules by mouth every 8 (eight) hours as needed for Cough. [facility] albuterol 90 mcg/actuati on inhaler 2022-06 00:00: 00 Yes [id number] 2{puff} Inhale 2 Puffs every 6 (six) hours as needed for Wheezing or Shortness of Breath. [facility] benzonatate 100 mg capsule 2022-06 00:00: 00 Yes [id number] 200mg Take 2 capsules by mouth every 8 (eight) hours as needed for Cough. [facility] albuterol 90 mcg/actuati on inhaler 2022-06 00:00: 00 Yes [id number] 2{puff} Inhale 2 Puffs every 6 (six) hours as needed for Wheezing or Shortness of Breath. [facility] benzonatate 100 mg capsule 2022-06 00:00: 00 Yes [id number] 200mg Take 2 capsules by mouth every 8 (eight) hours as needed for Cough. [facility] albuterol 90 mcg/actuati on inhaler 2022-06 00:00: 00 Yes [id number] 2{puff} Inhale 2 Puffs every 6 (six) hours as needed for Wheezing or Shortness of Breath. [facility] benzonatate 100 mg capsule 2022-06 00:00: 00 Yes [id number] 200mg Take 2 capsules by mouth every 8 (eight) hours as needed for Cough. [facility] albuterol 90 mcg/actuati on inhaler 2022-06 00:00: 00 Yes [id number] 2{puff} Inhale 2 Puffs every 6 (six) hours as needed for Wheezing or Shortness of Breath. [facility] benzonatate 100 mg capsule 2022-06 00:00: 00 Yes [id number] 200mg Take 2 capsules by mouth every 8 (eight) hours as needed for Cough. [facility] albuterol 90 mcg/actuati on inhaler 2022-06 00:00: 00 Yes [id number] 2{puff} Inhale 2 Puffs every 6 (six) hours as needed for Wheezing or Shortness of Breath. [facility] benzonatate 100 mg capsule 2022-06 00:00: 00 Yes [id number] 200mg Take 2 capsules by mouth every 8 (eight) hours as needed for Cough. [facility] albuterol 90 mcg/actuati on inhaler 2022-06 00:00: 00 Yes [id number] 2{puff} Inhale 2 Puffs every 6 (six) hours as needed for Wheezing or Shortness of Breath. [facility] benzonatate 100 mg capsule 2022-06 00:00: 00 Yes [id number] 200mg Take 2 capsules by mouth every 8 (eight) hours as needed for Cough. [facility] albuterol 90 mcg/actuati on inhaler 2022-06 00:00: 00 Yes [id number] 2{puff} Inhale 2 Puffs every 6 (six) hours as needed for Wheezing or Shortness of Breath. [facility] benzonatate 100 mg capsule 2022-06 00:00: 00 Yes [id number] 200mg Take 2 capsules by mouth every 8 (eight) hours as needed for Cough. [facility] albuterol 90 mcg/actuati on inhaler 2022-06 00:00: 00 Yes [id number] 2{puff} Inhale 2 Puffs every 6 (six) hours as needed for Wheezing or Shortness of Breath. [facility] benzon[facility]ate 100 mg capsule 2022-06 00:00: 00 Yes [id number] 200mg Take 2 capsules by mouth every 8 (eight) hours as needed for Cough. [facility] albuterol 90 mcg/actuati on inhaler 2022-06 00:00: 00 Yes [id number] 2{puff} Inhale 2 Puffs every 6 (six) hours as needed for Wheezing or Shortness of Breath. [facility] benzonatate 100 mg capsule 2022-06 00:00: 00 Yes [id number] 200mg Take 2 capsules by mouth every 8 (eight) hours as needed for Cough. [facility] albuterol 90 mcg/actuati on inhaler 2022-06 00:00: 00 Yes [id number] 2{puff} Inhale 2 Puffs every 6 (six) hours as needed for Wheezing or Shortness of Breath. [facility] benzonatate 100 mg capsule 2022-06 00:00: 00 Yes [id number] 200mg Take 2 capsules by mouth every 8 (eight) hours as needed for Cough. [facility] albuterol 90 mcg/actuati on inhaler 2022-06 00:00: 00 Yes [id number] 2{puff} Inhale 2 Puffs every 6 (six) hours as needed for Wheezing or Shortness of Breath. [facility] benzonatate 100 mg capsule 2022-06 00:00: 00 Yes [id number] 200mg Take 2 capsules by mouth every 8 (eight) hours as needed for Cough. [facility] albuterol 90 mcg/actuati on inhaler 2022-06 00:00: 00 Yes [id number] 2{puff} Inhale 2 Puffs every 6 (six) hours as needed for Wheezing or Shortness of Breath. [facility] benzonatate 100 mg capsule 2022-06 00:00: 00 Yes [id number] 200mg Take 2 capsules by mouth every 8 (eight) hours as needed for Cough. [facility] albuterol 90 mcg/actuati on inhaler 2022-06 00:00: 00 Yes [id number] 2{puff} Inhale 2 Puffs every 6 (six) hours as needed for Wheezing or Shortness of Breath. [facility] benzonatate 100 mg capsule 2022-06 00:00: 00 Yes [id number] 200mg Take 2 capsules by mouth every 8 (eight) hours as needed for Cough. [facility] albuterol 90 mcg/actuati on inhaler 2022-06 00:00: 00 Yes [id number] 2{puff} Inhale 2 Puffs every 6 (six) hours as needed for Wheezing or Shortness of Breath. [facility] benzonatate 100 mg capsule 2022-06 00:00: 00 Yes [id number] 200mg Take 2 capsules by mouth every 8 (eight) hours as needed for Cough. [facility] albuterol 90 mcg/actuati on inhaler 2022-06 00:00: 00 Yes [id number] 2{puff} Inhale 2 Puffs every 6 (six) hours as needed for Wheezing or Shortness of Breath. [facility] benzonatate 100 mg capsule 2022-06 00:00: 00 Yes [id number] 200mg Take 2 capsules by mouth every 8 (eight) hours as needed for Cough. [facility] albuterol 90 mcg/actuati on inhaler 2022-06 00:00: 00 Yes [id number] 2{puff} Inhale 2 Puffs every 6 (six) hours as needed for Wheezing or Shortness of Breath. [facility] benzonatate 100 mg capsule 2022-06 00:00: 00 Yes [id number] 200mg Take 2 capsules by mouth every 8 (eight) hours as needed for Cough. [facility] albuterol 90 mcg/actuati on inhaler 2022-06 00:00: 00 Yes [id number] 2{puff} Inhale 2 Puffs every 6 (six) hours as needed for Wheezing or Shortness of Breath. [facility] benzonatate 100 mg capsule 2022-06 00:00: 00 Yes [id number] 200mg Take 2 capsules by mouth every 8 (eight) hours as needed for Cough. [facility] albuterol 90 mcg/actuati on inhaler 2022-06 00:00: 00 Yes [id number] 2{puff} Inhale 2 Puffs every 6 (six) hours as needed for Wheezing or Shortness of Breath. [facility] benzonatate 100 mg capsule 2022-06 00:00: 00 Yes [id number] 200mg Take 2 capsules by mouth every 8 (eight) hours as needed for Cough. [facility] albuterol 90 mcg/actuati on inhaler 2022-06 00:00: 00 Yes [id number] 2{puff} Inhale 2 Puffs every 6 (six) hours as needed for Wheezing or Shortness of Breath. [facility] benzonatate 100 mg capsule 2022-06 00:00: 00 Yes [id number] 200mg Take 2 capsules by mouth every 8 (eight) hours as needed for Cough. [facility] albuterol 90 mcg/actuati on inhaler 2022-06 00:00: 00 Yes [id number] 2{puff} Inhale 2 Puffs every 6 (six) hours as needed for Wheezing or Shortness of Breath. [facility] benzonatate 100 mg capsule 2022-06 00:00: 00 Yes [id number] 200mg Take 2 capsules by mouth every 8 (eight) hours as needed for Cough. [facility] albuterol 90 mcg/actuati on inhaler 2022-06 00:00: 00 Yes [id number] 2{puff} Inhale 2 Puffs every 6 (six) hours as needed for Wheezing or Shortness of Breath. [facility] benzonatate 100 mg capsule 2022-06 00:00: 00 Yes [id number] 200mg Take 2 capsules by mouth every 8 (eight) hours as needed for Cough. [facility] albuterol 90 mcg/actuati on inhaler 2022-06 00:00: 00 Yes [id number] 2{puff} Inhale 2 Puffs every 6 (six) hours as needed for Wheezing or Shortness of Breath. [facility] benzonatate 100 mg capsule 2022-06 00:00: 00 Yes [id number] 200mg Take 2 capsules by mouth every 8 (eight) hours as needed for Cough. [facility] albuterol 90 mcg/actuati on inhaler 2022-06 00:00: 00 Yes [id number] 2{puff} Inhale 2 Puffs every 6 (six) hours as needed for Wheezing or Shortness of Breath. [facility] benzonatate 100 mg capsule 2022-06 00:00: 00 Yes [id number] 200mg Take 2 capsules by mouth every 8 (eight) hours as needed for Cough. [facility] albuterol 90 mcg/actuati on inhaler 2022-06 00:00: 00 Yes [id number] 2{puff} Inhale 2 Puffs every 6 (six) hours as needed for Wheezing or Shortness of Breath. [facility] benzonatate 100 mg capsule 2022-06 00:00: 00 Yes [id number] 200mg Take 2 capsules by mouth every 8 (eight) hours as needed for Cough. [facility] albuterol 90 mcg/actuati on inhaler 2022-06 00:00: 00 Yes [id number] 2{puff} Inhale 2 Puffs every 6 (six) hours as needed for Wheezing or Shortness of Breath. [facility] benzonatate 100 mg capsule 2022-06 00:00: 00 Yes [id number] 200mg Take 2 capsules by mouth every 8 (eight) hours as needed for Cough. [facility] albuterol 90 mcg/actuati on inhaler 2022-06 00:00: 00 Yes [id number] 2{puff} Inhale 2 Puffs every 6 (six) hours as needed for Wheezing or Shortness of Breath. [facility] benzonatate 100 mg capsule 2022-06 00:00: 00 Yes [id number] 200mg Take 2 capsules by mouth every 8 (eight) hours as needed for Cough. [facility] albuterol 90 mcg/actuati on inhaler 2022-06 00:00: 00 Yes [id number] 2{puff} Inhale 2 Puffs every 6 (six) hours as needed for Wheezing or Shortness of Breath. [facility] benzonatate 100 mg capsule 2022-06 00:00: 00 Yes [id number] 200mg Take 2 capsules by mouth every 8 (eight) hours as needed for Cough. [facility] albuterol 90 mcg/actuati on inhaler 2022-06 00:00: 00 Yes [id number] 2{puff} Inhale 2 Puffs every 6 (six) hours as needed for Wheezing or Shortness of Breath. [facility] benzonatate 100 mg capsule 2022-06 00:00: 00 Yes [id number] 200mg Take 2 capsules by mouth every 8 (eight) hours as needed for Cough. [facility] albuterol 90 mcg/actuati on inhaler 2022-06 00:00: 00 Yes [id number] 2{puff} Inhale 2 Puffs every 6 (six) hours as needed for Wheezing or Shortness of Breath. [facility] benzonatate 100 mg capsule 2022-06 00:00: 00 Yes [id number] 200mg Take 2 capsules by mouth every 8 (eight) hours as needed for Cough. [facility] albuterol 90 mcg/actuati on inhaler 2022-06 00:00: 00 Yes [id number] 2{puff} Inhale 2 Puffs every 6 (six) hours as needed for Wheezing or Shortness of Breath. [facility] benzonatate 100 mg capsule 2022-06 00:00: 00 Yes [id number] 200mg Take 2 capsules by mouth every 8 (eight) hours as needed for Cough. [facility] albuterol 90 mcg/actuati on inhaler 2022-06 00:00: 00 Yes [id number] 2{puff} Inhale 2 Puffs every 6 (six) hours as needed for Wheezing or Shortness of Breath. [facility] benzonatate 100 mg capsule 2022-06 00:00: 00 Yes [id number] 200mg Take 2 capsules by mouth every 8 (eight) hours as needed for Cough. [facility] albuterol 90 mcg/actuati on inhaler 2022-06 00:00: 00 Yes [id number] 2{puff} Inhale 2 Puffs every 6 (six) hours as needed for Wheezing or Shortness of Breath. [facility] benzonatate 100 mg capsule 2022-06 00:00: 00 Yes [id number] 200mg Take 2 capsules by mouth every 8 (eight) hours as needed for Cough. [facility] albuterol 90 mcg/actuati on inhaler 2022-06 00:00: 00 Yes [id number] 2{puff} Inhale 2 Puffs every 6 (six) hours as needed for Wheezing or Shortness of Breath. [facility] benzonatate 100 mg capsule 2022-06 00:00: 00 Yes [id number] 200mg Take 2 capsules by mouth every 8 (eight) hours as needed for Cough. [facility] albuterol 90 mcg/actuati on inhaler 2022-06 00:00: 00 Yes [id number] 2{puff} Inhale 2 Puffs every 6 (six) hours as needed for Wheezing or Shortness of Breath. [facility] benzonatate 100 mg capsule 2022-06 00:00: 00 Yes [id number] 200mg Take 2 capsules by mouth every 8 (eight) hours as needed for Cough. [facility] albuterol 90 mcg/actuati on inhaler 2022-06 00:00: 00 Yes [id number] 2{puff} Inhale 2 Puffs every 6 (six) hours as needed for Wheezing or Shortness of Breath. [facility] benzonatate 100 mg capsule 2022-06 00:00: 00 Yes [id number] 200mg Take 2 capsules by mouth every 8 (eight) hours as needed for Cough. [facility] albuterol 90 mcg/actuati on inhaler 2022-06 00:00: 00 Yes [id number] 2{puff} Inhale 2 Puffs every 6 (six) hours as needed for Wheezing or Shortness of Breath. [facility] benzonatate 100 mg capsule 2022-06 00:00: 00 Yes [id number] 200mg Take 2 capsules by mouth every 8 (eight) hours as needed for Cough. [facility] albuterol 90 mcg/actuati on inhaler 2022-06 00:00: 00 Yes [id number] 2{puff} Inhale 2 Puffs every 6 (six) hours as needed for Wheezing or Shortness of Breath. [facility] benzonatate 100 mg capsule 2022-06 00:00: 00 Yes [id number] 200mg Take 2 capsules by mouth every 8 (eight) hours as needed for Cough. [facility] albuterol 90 mcg/actuati on inhaler 2022-06 00:00: 00 Yes [id number] 2{puff} Inhale 2 Puffs every 6 (six) hours as needed for Wheezing or Shortness of Breath. [facility] benzonatate 100 mg capsule 2022-06 00:00: 00 Yes [id number] 200mg Take 2 capsules by mouth every 8 (eight) hours as needed for Cough. [facility] albuterol 90 mcg/actuati on inhaler 2022-06 00:00: 00 Yes [id number] 2{puff} Inhale 2 Puffs every 6 (six) hours as needed for Wheezing or Shortness of Breath. [facility] benzonatate 100 mg capsule 2022-06 00:00: 00 Yes [id number] 200mg Take 2 capsules by mouth every 8 (eight) hours as needed for Cough. [facility] albuterol 90 mcg/actuati on inhaler 2022-06 00:00: 00 Yes [id number] 2{puff} Inhale 2 Puffs every 6 (six) hours as needed for Wheezing or Shortness of Breath. [facility] benzonatate 100 mg capsule 2022-06 00:00: 00 Yes [id number] 200mg Take 2 capsules by mouth every 8 (eight) hours as needed for Cough. [facility] albuterol 90 mcg/actuati on inhaler 2022-06 00:00: 00 Yes [id number] 2{puff} Inhale 2 Puffs every 6 (six) hours as needed for Wheezing or Shortness of Breath. [facility] benzonatate 100 mg capsule 2022-06 00:00: 00 Yes [id number] 200mg Take 2 capsules by mouth every 8 (eight) hours as needed for Cough. [facility] albuterol 90 mcg/actuati on inhaler 2022-06 00:00: 00 Yes [id number] 2{puff} Inhale 2 Puffs every 6 (six) hours as needed for Wheezing or Shortness of Breath. [facility] benzonatate 100 mg capsule 2022-06 00:00: 00 Yes [id number] 200mg Take 2 capsules by mouth every 8 (eight) hours as needed for Cough. [facility] albuterol 90 mcg/actuati on inhaler 2022-06 00:00: 00 Yes [id number] 2{puff} Inhale 2 Puffs every 6 (six) hours as needed for Wheezing or Shortness of Breath. [facility] benzonatate 100 mg capsule 2022-06 00:00: 00 Yes [id number] 200mg Take 2 capsules by mouth every 8 (eight) hours as needed for Cough. [facility] albuterol 90 mcg/actuati on inhaler 2022-06 00:00: 00 Yes [id number] 2{puff} Inhale 2 Puffs every 6 (six) hours as needed for Wheezing or Shortness of Breath. [facility] benzonatate 100 mg capsule 2022-06 00:00: 00 Yes [id number] 200mg Take 2 capsules by mouth every 8 (eight) hours as needed for Cough. [facility] albuterol 90 mcg/actuati on inhaler 2022-06 00:00: 00 Yes [id number] 2{puff} Inhale 2 Puffs every 6 (six) hours as needed for Wheezing or Shortness of Breath. [facility] benzonatate 100 mg capsule 2022-06 00:00: 00 Yes [id number] 200mg Take 2 capsules by mouth every 8 (eight) hours as needed for Cough. [facility] amoxicillin -clavulanat e (AUGMENTIN) 875-125 mg per tablet 2022-06 00:00: 00 06-27 05:59 :00 Yes [id number] 1{tbl} Take 1 tablet by mouth in the morning and 1 tablet in the evening. Do all this for 10 days. [facility] amoxicillin -clavulanat e (AUGMENTIN) 875-125 mg per tablet 2022-06 00:00: 00 06-27 05:59 :00 Yes [id number] 1{tbl} Take 1 tablet by mouth in the morning and 1 tablet in the evening. Do all this for 10 days. [facility] amoxicillin -clavulanat e (AUGMENTIN) 875-125 mg per tablet 2022-06 00:00: 00 06-27 05:59 :00 Yes [id number] 1{tbl} Take 1 tablet by mouth in the morning and 1 tablet in the evening. Do all this for 10 days. [facility] amoxicillin -clavulanat e (AUGMENTIN) 875-125 mg per tablet 2022-06 00:00: 00 06-27 05:59 :00 Yes [id number] 1{tbl} Take 1 tablet by mouth in the morning and 1 tablet in the evening. Do all this for 10 days. [facility] amoxicillin -clavulanat e (AUGMENTIN) 875-125 mg per tablet 2022-06 00:00: 00 06-27 05:59 :00 Yes [id number] 1{tbl} Take 1 tablet by mouth in the morning and 1 tablet in the evening. Do all this for 10 days. [facility] amoxicillin -clavulanat e (AUGMENTIN) 875-125 mg per tablet 2022-06 00:00: 00 06-27 05:59 :00 Yes [id number] 1{tbl} Take 1 tablet by mouth in the morning and 1 tablet in the evening. Do all this for 10 days. [facility] amoxicillin -clavulanat e (AUGMENTIN) 875-125 mg per tablet 2022-06 00:00: 00 06-27 05:59 :00 Yes [id number] 1{tbl} Take 1 tablet by mouth in the morning and 1 tablet in the evening. Do all this for 10 days. [facility] amoxicillin -clavulanat e (AUGMENTIN) 875-125 mg per tablet 2022-06 00:00: 00 06-27 05:59 :00 Yes [id number] 1{tbl} Take 1 tablet by mouth in the morning and 1 tablet in the evening. Do all this for 10 days. [facility] amoxicillin -clavulanat e (AUGMENTIN) 875-125 mg per tablet 2022-06 00:00: 00 06-27 05:59 :00 Yes [id number] 1{tbl} Take 1 tablet by mouth in the morning and 1 tablet in the evening. Do all this for 10 days. [facility] amoxicillin -clavulanat e (AUGMENTIN) 875-125 mg per tablet 2022-06 00:00: 00 06-27 05:59 :00 Yes [id number] 1{tbl} Take 1 tablet by mouth in the morning and 1 tablet in the evening. Do all this for 10 days. [facility] amoxicillin -clavulanat e (AUGMENTIN) 875-125 mg per tablet 2022-06 00:00: 00 06-27 05:59 :00 Yes [id number] 1{tbl} Take 1 tablet by mouth in the morning and 1 tablet in the evening. Do all this for 10 days. [facility] amoxicillin -clavulanat e (AUGMENTIN) 875-125 mg per tablet 2022-06 00:00: 00 06-27 05:59 :00 Yes [id number] 1{tbl} Take 1 tablet by mouth in the morning and 1 tablet in the evening. Do all this for 10 days. [facility] predniSONE 20 mg tablet 2022-06 00:00: 00 06-22 05:59 :00 Yes [id number] 40mg Take 2 tablets by mouth in the morning for 5 days. [facility] predniSONE 20 mg tablet 2022-06 00:00: 00 06-22 05:59 :00 Yes [id number] 40mg Take 2 tablets by mouth in the morning for 5 days. [facility] predniSONE 20 mg tablet 2022-06 00:00: 00 06-22 05:59 :00 Yes [id number] 40mg Take 2 tablets by mouth in the morning for 5 days. [facility] azelastine 137 mcg (0.1 %) nasal spray 2022-06 00:00: 00 Yes [id number] 1{spray } Use 1 Noel in each nostril in the morning and 1 Noel in the evening. Use in each nostril as directed [facility] bromphenira mine-pseudo ephedrine-D M (BROMFED DM) 2-30-10 mg/5 mL syrup 2022-06 00:00: 00 Yes [id number] 5mL Take 5 mL by mouth 4 (four) times daily as needed for Cold symptoms. [facility] azelastine 137 mcg (0.1 %) nasal spray 2022-06 00:00: 00 Yes [id number] 1{spray } Use 1 Noel in each nostril in the morning and 1 Noel in the evening. Use in each nostril as directed [facility] bromphenira mine-pseudo ephedrine-D M (BROMFED DM) 2-30-10 mg/5 mL syrup 2022-06 00:00: 00 Yes [id number] 5mL Take 5 mL by mouth 4 (four) times daily as needed for Cold symptoms. [facility] amoxicillin -clavulanat e (AUGMENTIN) 875-125 mg per tablet 2022-06 2 00:00: 00 Yes [id number] 1{tbl} Take 1 tablet by mouth in the morning and 1 tablet in the evening. [facility] bromphenira mine-pseudo ephedrine-D M (BROMFED DM) 2-30-10 mg/5 mL syrup 2022-06 2 00:00: 00 Yes [id number] 5mL Take 5 mL by mouth 4 (four) times daily as needed for Cold symptoms. [facility] azelastine 137 mcg (0.1 %) nasal spray 2022-06 2 00:00: 00 Yes [id number] 1{spray } Use 1 Noel in each nostril in the morning and 1 Noel in the evening. Use in each nostril as directed [facility] amoxicillin -clavulanat e (AUGMENTIN) 875-125 mg per tablet 2022-06 00:00: 00 Yes [id number] 1{tbl} Take 1 tablet by mouth in the morning and 1 tablet in the evening. [facility] bromphenira mine-pseudo ephedrine-D M (BROMFED DM) 2-30-10 mg/5 mL syrup 2022-06 00:00: 00 Yes [id number] 5mL Take 5 mL by mouth 4 (four) times daily as needed for Cold symptoms. [facility] azelastine 137 mcg (0.1 %) nasal spray 2022-06 00:00: 00 Yes [id number] 1{spray } Use 1 Noel in each nostril in the morning and 1 Noel in the evening. Use in each nostril as directed [facility] amoxicillin -clavulanat e (AUGMENTIN) 875-125 mg per tablet 2022-06 2 00:00: 00 Yes [id number] 1{tbl} Take 1 tablet by mouth in the morning and 1 tablet in the evening. [facility] bromphenira mine-pseudo ephedrine-D M (BROMFED DM) 2-30-10 mg/5 mL syrup 2022-06 2- 00:00: 00 Yes [id number] 5mL Take 5 mL by mouth 4 (four) times daily as needed for Cold symptoms. [facility] azelastine 137 mcg (0.1 %) nasal spray 2022-06 00:00: 00 Yes [id number] 1{spray } Use 1 Noel in each nostril in the morning and 1 Noel in the evening. Use in each nostril as directed [facility] bromphenira mine-pseudo ephedrine-D M (BROMFED DM) 2-30-10 mg/5 mL syrup 2022-06 00:00: 00 Yes [id number] 5mL Take 5 mL by mouth 4 (four) times daily as needed for Cold symptoms. [facility] azelastine 137 mcg (0.1 %) nasal spray 2022-06 00:00: 00 Yes [id number] 1{spray } Use 1 Noel in each nostril in the morning and 1 Noel in the evening. Use in each nostril as directed [facility] bromphenira mine-pseudo ephedrine-D M (BROMFED DM) 2-30-10 mg/5 mL syrup 2022-06 00:00: 00 Yes [id number] 5mL Take 5 mL by mouth 4 (four) times daily as needed for Cold symptoms. [facility] azelastine 137 mcg (0.1 %) nasal spray 2022-06 00:00: 00 Yes [id number] 1{spray } Use 1 Noel in each nostril in the morning and 1 Noel in the evening. Use in each nostril as directed [facility] bromphenira mine-pseudo ephedrine-D M (BROMFED DM) 2-30-10 mg/5 mL syrup 2022-06- 00:00: 00 Yes [id number] 5mL Take 5 mL by mouth 4 (four) times daily as needed for Cold symptoms. [facility] azelastine 137 mcg (0.1 %) nasal spray 2022-06 00:00: 00 Yes [id number] 1{spray } Use 1 Noel in each nostril in the morning and 1 Noel in the evening. Use in each nostril as directed [facility] bromphenira mine-pseudo ephedrine-D M (BROMFED DM) 2-30-10 mg/5 mL syrup 2022-06- 00:00: 00 Yes [id number] 5mL Take 5 mL by mouth 4 (four) times daily as needed for Cold symptoms. [facility] azelastine 137 mcg (0.1 %) nasal spray 2022-06 00:00: 00 Yes [id number] 1{spray } Use 1 Noel in each nostril in the morning and 1 Noel in the evening. Use in each nostril as directed [facility] bromphenira mine-pseudo ephedrine-D M (BROMFED DM) 2-30-10 mg/5 mL syrup 2022-06 00:00: 00 Yes [id number] 5mL Take 5 mL by mouth 4 (four) times daily as needed for Cold symptoms. [facility] azelastine 137 mcg (0.1 %) nasal spray 2022-06 00:00: 00 Yes [id number] 1{spray } Use 1 Noel in each nostril in the morning and 1 Noel in the evening. Use in each nostril as directed [facility] bromphenira mine-pseudo ephedrine-D M (BROMFED DM) 2-30-10 mg/5 mL syrup 2022-06 00:00: 00 Yes [id number] 5mL Take 5 mL by mouth 4 (four) times daily as needed for Cold symptoms. [facility] azelastine 137 mcg (0.1 %) nasal spray 2022-06 00:00: 00 Yes [id number] 1{spray } Use 1 Noel in each nostril in the morning and 1 Noel in the evening. Use in each nostril as directed [facility] bromphenira mine-pseudo ephedrine-D M (BROMFED DM) 2-30-10 mg/5 mL syrup 2022-06- 00:00: 00 Yes [id number] 5mL Take 5 mL by mouth 4 (four) times daily as needed for Cold symptoms. [facility] azelastine 137 mcg (0.1 %) nasal spray 2022-06- 00:00: 00 Yes [id number] 1{spray } Use 1 Noel in each nostril in the morning and 1 Noel in the evening. Use in each nostril as directed [facility] bromphenira mine-pseudo ephedrine-D M (BROMFED DM) 2-30-10 mg/5 mL syrup 2022-06 2- 00:00: 00 Yes [id number] 5mL Take 5 mL by mouth 4 (four) times daily as needed for Cold symptoms. [facility] azelastine 137 mcg (0.1 %) nasal spray 2022-06 2 00:00: 00 Yes [id number] 1{spray } Use 1 Noel in each nostril in the morning and 1 Noel in the evening. Use in each nostril as directed [facility] bromphenira mine-pseudo ephedrine-D M (BROMFED DM) 2-30-10 mg/5 mL syrup 2022-06 2- 00:00: 00 Yes [id number] 5mL Take 5 mL by mouth 4 (four) times daily as needed for Cold symptoms. [facility] azelastine 137 mcg (0.1 %) nasal spray 2022-06 2 00:00: 00 Yes [id number] 1{spray } Use 1 Noel in each nostril in the morning and 1 Noel in the evening. Use in each nostril as directed [facility] bromphenira mine-pseudo ephedrine-D M (BROMFED DM) 2-30-10 mg/5 mL syrup 2022-06 2- 00:00: 00 Yes [id number] 5mL Take 5 mL by mouth 4 (four) times daily as needed for Cold symptoms. [facility] azelastine 137 mcg (0.1 %) nasal spray 2022-06 2- 00:00: 00 Yes [id number] 1{spray } Use 1 Noel in each nostril in the morning and 1 Noel in the evening. Use in each nostril as directed [facility] bromphenira mine-pseudo ephedrine-D M (BROMFED DM) 2-30-10 mg/5 mL syrup 2022-06 2- 00:00: 00 Yes [id number] 5mL Take 5 mL by mouth 4 (four) times daily as needed for Cold symptoms. [facility] azelastine 137 mcg (0.1 %) nasal spray 2022-06 00:00: 00 Yes [id number] 1{spray } Use 1 Noel in each nostril in the morning and 1 Noel in the evening. Use in each nostril as directed [facility] bromphenira mine-pseudo ephedrine-D M (BROMFED DM) 2-30-10 mg/5 mL syrup 2022-06 00:00: 00 Yes [id number] 5mL Take 5 mL by mouth 4 (four) times daily as needed for Cold symptoms. [facility] azelastine 137 mcg (0.1 %) nasal spray 2022-06 00:00: 00 Yes [id number] 1{spray } Use 1 Noel in each nostril in the morning and 1 Noel in the evening. Use in each nostril as directed [facility] bromphenira mine-pseudo ephedrine-D M (BROMFED DM) 2-30-10 mg/5 mL syrup 2022-06 00:00: 00 Yes [id number] 5mL Take 5 mL by mouth 4 (four) times daily as needed for Cold symptoms. [facility] azelastine 137 mcg (0.1 %) nasal spray 2022-06 00:00: 00 Yes [id number] 1{spray } Use 1 Noel in each nostril in the morning and 1 Noel in the evening. Use in each nostril as directed [facility] bromphenira mine-pseudo ephedrine-D M (BROMFED DM) 2-30-10 mg/5 mL syrup 2022-06 2- 00:00: 00 Yes [id number] 5mL Take 5 mL by mouth 4 (four) times daily as needed for Cold symptoms. [facility] azelastine 137 mcg (0.1 %) nasal spray 2022-06 00:00: 00 Yes [id number] 1{spray } Use 1 Noel in each nostril in the morning and 1 Noel in the evening. Use in each nostril as directed [facility] bromphenira mine-pseudo ephedrine-D M (BROMFED DM) 2-30-10 mg/5 mL syrup 2022-06- 00:00: 00 Yes [id number] 5mL Take 5 mL by mouth 4 (four) times daily as needed for Cold symptoms. [facility] azelastine 137 mcg (0.1 %) nasal spray 2022-06 00:00: 00 Yes [id number] 1{spray } Use 1 Noel in each nostril in the morning and 1 Noel in the evening. Use in each nostril as directed [facility] bromphenira mine-pseudo ephedrine-D M (BROMFED DM) 2-30-10 mg/5 mL syrup 2022-06 00:00: 00 Yes [id number] 5mL Take 5 mL by mouth 4 (four) times daily as needed for Cold symptoms. [facility] azelastine 137 mcg (0.1 %) nasal spray 2022-06 00:00: 00 Yes [id number] 1{spray } Use 1 Noel in each nostril in the morning and 1 Noel in the evening. Use in each nostril as directed [facility] bromphenira mine-pseudo ephedrine-D M (BROMFED DM) 2-30-10 mg/5 mL syrup 2022-06 00:00: 00 Yes [id number] 5mL Take 5 mL by mouth 4 (four) times daily as needed for Cold symptoms. [facility] azelastine 137 mcg (0.1 %) nasal spray 2022-06- 00:00: 00 Yes [id number] 1{spray } Use 1 Noel in each nostril in the morning and 1 Noel in the evening. Use in each nostril as directed [facility] bromphenira mine-pseudo ephedrine-D M (BROMFED DM) 2-30-10 mg/5 mL syrup 2022-06- 00:00: 00 Yes [id number] 5mL Take 5 mL by mouth 4 (four) times daily as needed for Cold symptoms. [facility] azelastine 137 mcg (0.1 %) nasal spray 2022-06- 00:00: 00 Yes [id number] 1{spray } Use 1 Noel in each nostril in the morning and 1 Noel in the evening. Use in each nostril as directed [facility] bromphenira mine-pseudo ephedrine-D M (BROMFED DM) 2-30-10 mg/5 mL syrup 2022-06 2- 00:00: 00 Yes [id number] 5mL Take 5 mL by mouth 4 (four) times daily as needed for Cold symptoms. [facility] azelastine 137 mcg (0.1 %) nasal spray 2022-06 2- 00:00: 00 Yes [id number] 1{spray } Use 1 Noel in each nostril in the morning and 1 Noel in the evening. Use in each nostril as directed [facility] bromphenira mine-pseudo ephedrine-D M (BROMFED DM) 2-30-10 mg/5 mL syrup 2022-06 2- 00:00: 00 Yes [id number] 5mL Take 5 mL by mouth 4 (four) times daily as needed for Cold symptoms. [facility] azelastine 137 mcg (0.1 %) nasal spray 2022-06 00:00: 00 Yes [id number] 1{spray } Use 1 Noel in each nostril in the morning and 1 Noel in the evening. Use in each nostril as directed [facility] bromphenira mine-pseudo ephedrine-D M (BROMFED DM) 2-30-10 mg/5 mL syrup 2022-06 2- 00:00: 00 Yes [id number] 5mL Take 5 mL by mouth 4 (four) times daily as needed for Cold symptoms. [facility] azelastine 137 mcg (0.1 %) nasal spray 2022-06 2- 00:00: 00 Yes [id number] 1{spray } Use 1 Noel in each nostril in the morning and 1 Noel in the evening. Use in each nostril as directed [facility] bromphenira mine-pseudo ephedrine-D M (BROMFED DM) 2-30-10 mg/5 mL syrup 2022-06 2- 00:00: 00 Yes [id number] 5mL Take 5 mL by mouth 4 (four) times daily as needed for Cold symptoms. [facility] azelastine 137 mcg (0.1 %) nasal spray 2022-06 2- 00:00: 00 Yes [id number] 1{spray } Use 1 Noel in each nostril in the morning and 1 Noel in the evening. Use in each nostril as directed [facility] bromphenira mine-pseudo ephedrine-D M (BROMFED DM) 2-30-10 mg/5 mL syrup 2022-06 2- 00:00: 00 Yes [id number] 5mL Take 5 mL by mouth 4 (four) times daily as needed for Cold symptoms. [facility] azelastine 137 mcg (0.1 %) nasal spray 2022-06 00:00: 00 Yes [id number] 1{spray } Use 1 Noel in each nostril in the morning and 1 Noel in the evening. Use in each nostril as directed [facility] bromphenira mine-pseudo ephedrine-D M (BROMFED DM) 2-30-10 mg/5 mL syrup 2022-06 2- 00:00: 00 Yes [id number] 5mL Take 5 mL by mouth 4 (four) times daily as needed for Cold symptoms. [facility] azelastine 137 mcg (0.1 %) nasal spray 2022-06 2 00:00: 00 Yes [id number] 1{spray } Use 1 Noel in each nostril in the morning and 1 Noel in the evening. Use in each nostril as directed [facility] bromphenira mine-pseudo ephedrine-D M (BROMFED DM) 2-30-10 mg/5 mL syrup 2022-06 2- 00:00: 00 Yes [id number] 5mL Take 5 mL by mouth 4 (four) times daily as needed for Cold symptoms. [facility] bromphenira mine-pseudo ephedrine-D M (BROMFED DM) 2-30-10 mg/5 mL syrup 2022-06 2- 00:00: 00 Yes [id number] 5mL Take 5 mL by mouth 4 (four) times daily as needed for Cold symptoms. [facility] bromphenira mine-pseudo ephedrine-D M (BROMFED DM) 2-30-10 mg/5 mL syrup 2022-06 2-06 00:00: 00 Yes [id number] 5mL Take 5 mL by mouth 4 (four) times daily as needed for Cold symptoms. [facility] bromphenira mine-pseudo ephedrine-D M (BROMFED DM) 2-30-10 mg/5 mL syrup 2022-06 2-06 00:00: 00 Yes [id number] 5mL Take 5 mL by mouth 4 (four) times daily as needed for Cold symptoms. [facility] bromphenira mine-pseudo ephedrine-D M (BROMFED DM) 2-30-10 mg/5 mL syrup 2022-06 2-06 00:00: 00 Yes [id number] 5mL Take 5 mL by mouth 4 (four) times daily as needed for Cold symptoms. [facility] bromphenira mine-pseudo ephedrine-D M (BROMFED DM) 2-30-10 mg/5 mL syrup 2022-06 2-06 00:00: 00 Yes [id number] 5mL Take 5 mL by mouth 4 (four) times daily as needed for Cold symptoms. [facility] bromphenira mine-pseudo ephedrine-D M (BROMFED DM) 2-30-10 mg/5 mL syrup 2022-06 2-06 00:00: 00 Yes [id number] 5mL Take 5 mL by mouth 4 (four) times daily as needed for Cold symptoms. [facility] bromphenira mine-pseudo ephedrine-D M (BROMFED DM) 2-30-10 mg/5 mL syrup 2022-06 2-06 00:00: 00 Yes [id number] 5mL Take 5 mL by mouth 4 (four) times daily as needed for Cold symptoms. [facility] bromphenira mine-pseudo ephedrine-D M (BROMFED DM) 2-30-10 mg/5 mL syrup 2022-06 2-06 00:00: 00 Yes [id number] 5mL Take 5 mL by mouth 4 (four) times daily as needed for Cold symptoms. [facility] bromphenira mine-pseudo ephedrine-D M (BROMFED DM) 2-30-10 mg/5 mL syrup 2022-06 2-06 00:00: 00 Yes [id number] 5mL Take 5 mL by mouth 4 (four) times daily as needed for Cold symptoms. [facility] bromphenira mine-pseudo ephedrine-D M (BROMFED DM) 2-30-10 mg/5 mL syrup 2022-06 2-06 00:00: 00 Yes [id number] 5mL Take 5 mL by mouth 4 (four) times daily as needed for Cold symptoms. [facility] bromphenira mine-pseudo ephedrine-D M (BROMFED DM) 2-30-10 mg/5 mL syrup 2022-06 2-06 00:00: 00 Yes [id number] 5mL Take 5 mL by mouth 4 (four) times daily as needed for Cold symptoms. [facility] bromphenira mine-pseudo ephedrine-D M (BROMFED DM) 2-30-10 mg/5 mL syrup 2022-06 2-06 00:00: 00 Yes [id number] 5mL Take 5 mL by mouth 4 (four) times daily as needed for Cold symptoms. [facility] bromphenira mine-pseudo ephedrine-D M (BROMFED DM) 2-30-10 mg/5 mL syrup 2022-06 2-06 00:00: 00 Yes [id number] 5mL Take 5 mL by mouth 4 (four) times daily as needed for Cold symptoms. [facility] bromphenira mine-pseudo ephedrine-D M (BROMFED DM) 2-30-10 mg/5 mL syrup 2022-06 2-06 00:00: 00 Yes [id number] 5mL Take 5 mL by mouth 4 (four) times daily as needed for Cold symptoms. [facility] bromphenira mine-pseudo ephedrine-D M (BROMFED DM) 2-30-10 mg/5 mL syrup 2022-06 2-06 00:00: 00 Yes [id number] 5mL Take 5 mL by mouth 4 (four) times daily as needed for Cold symptoms. [facility] bromphenira mine-pseudo ephedrine-D M (BROMFED DM) 2-30-10 mg/5 mL syrup 2022-06 2-06 00:00: 00 Yes [id number] 5mL Take 5 mL by mouth 4 (four) times daily as needed for Cold symptoms. [facility] bromphenira mine-pseudo ephedrine-D M (BROMFED DM) 2-30-10 mg/5 mL syrup 2022-06 2-06 00:00: 00 Yes [id number] 5mL Take 5 mL by mouth 4 (four) times daily as needed for Cold symptoms. [facility] bromphenira mine-pseudo ephedrine-D M (BROMFED DM) 2-30-10 mg/5 mL syrup 2022-06 2- 00:00: 00 Yes [id number] 5mL Take 5 mL by mouth 4 (four) times daily as needed for Cold symptoms. [facility] bromphenira mine-pseudo ephedrine-D M (BROMFED DM) 2-30-10 mg/5 mL syrup 2022-06 2-06 00:00: 00 Yes [id number] 5mL Take 5 mL by mouth 4 (four) times daily as needed for Cold symptoms. [facility] bromphenira mine-pseudo ephedrine-D M (BROMFED DM) 2-30-10 mg/5 mL syrup 2022-06 2-06 00:00: 00 Yes [id number] 5mL Take 5 mL by mouth 4 (four) times daily as needed for Cold symptoms. [facility] bromphenira mine-pseudo ephedrine-D M (BROMFED DM) 2-30-10 mg/5 mL syrup 2022-06 2-06 00:00: 00 Yes [id number] 5mL Take 5 mL by mouth 4 (four) times daily as needed for Cold symptoms. [facility] bromphenira mine-pseudo ephedrine-D M (BROMFED DM) 2-30-10 mg/5 mL syrup 2022-06 2-06 00:00: 00 Yes [id number] 5mL Take 5 mL by mouth 4 (four) times daily as needed for Cold symptoms. [facility] bromphenira mine-pseudo ephedrine-D M (BROMFED DM) 2-30-10 mg/5 mL syrup 2022-06 2- 00:00: 00 Yes [id number] 5mL Take 5 mL by mouth 4 (four) times daily as needed for Cold symptoms. [facility] bromphenira mine-pseudo ephedrine-D M (BROMFED DM) 2-30-10 mg/5 mL syrup 2022-06 2- 00:00: 00 Yes [id number] 5mL Take 5 mL by mouth 4 (four) times daily as needed for Cold symptoms. [facility] bromphenira mine-pseudo ephedrine-D M (BROMFED DM) 2-30-10 mg/5 mL syrup 2022-06 2- 00:00: 00 Yes [id number] 5mL Take 5 mL by mouth 4 (four) times daily as needed for Cold symptoms. [facility] bromphenira mine-pseudo ephedrine-D M (BROMFED DM) 2-30-10 mg/5 mL syrup 2022-06 2- 00:00: 00 Yes [id number] 5mL Take 5 mL by mouth 4 (four) times daily as needed for Cold symptoms. [facility] bromphenira mine-pseudo ephedrine-D M (BROMFED DM) 2-30-10 mg/5 mL syrup 2022-06 2- 00:00: 00 Yes [id number] 5mL Take 5 mL by mouth 4 (four) times daily as needed for Cold symptoms. [facility] bromphenira mine-pseudo ephedrine-D M (BROMFED DM) 2-30-10 mg/5 mL syrup 2022-06 2- 00:00: 00 Yes [id number] 5mL Take 5 mL by mouth 4 (four) times daily as needed for Cold symptoms. [facility] azelastine 137 mcg (0.1 %) nasal spray 2022-06 2 00:00: 00 07-21 00:00 :00 No [id number] 1{spray } Use 1 Noel in each nostril in the morning and 1 Noel in the evening. Use in each nostril as directed [facility] amoxicillin -clavulanat e (AUGMENTIN) 875-125 mg per tablet 2022-06 2-06 00:00: 00 06-16 00:00 :00 No [id number] 1{tbl} Take 1 tablet by mouth in the morning and 1 tablet in the evening. [facility] amoxicillin -clavulanat e (AUGMENTIN) 875-125 mg per tablet 2022-06 2- 00:00: 00 06-06 05:59 :00 No [id number] 1{tbl} Take 1 tablet by mouth in the morning and 1 tablet in the evening. Do all this for 10 days. [facility] amoxicillin -clavulanat e (AUGMENTIN) 875-125 mg per tablet 2022-06 2 00:00: 00 06-06 05:59 :00 No [id number] 1{tbl} Take 1 tablet by mouth in the morning and 1 tablet in the evening. Do all this for 10 days. [facility] azelastine 137 mcg (0.1 %) nasal spray 2022-06 00:00: 00 05-26 00:00 :00 No [id number] 1{spray } Use 1 Noel in each nostril in the morning and 1 Noel in the evening. Use in each nostril as directed [facility] amoxicillin -clavulanat e (AUGMENTIN) 875-125 mg per tablet 2022-06 2 00:00: 00 05-26 00:00 :00 No [id number] 1{tbl} Take 1 tablet by mouth in the morning and 1 tablet in the evening. Do all this for 10 days. [facility] bromphenira mine-pseudo ephedrine-D M (BROMFED DM) 2-30-10 mg/5 mL syrup 2022-06 2- 00:00: 00 05-26 00:00 :00 No [id number] 5mL Take 5 mL by mouth 4 (four) times daily as needed for Cold symptoms. [facility] topiramate 25 mg tablet 2022-06 1-16 00:00: 00 Yes [id number] 25mg Take 1 tablet by mouth in the morning and 1 tablet in the evening. [facility] amitriptyli ne 25 mg tablet 2022-06 00:00: 00 Yes [id number] 50mg Take 2 tablets by mouth at bedtime. [facility] SUMAtriptan (IMITREX) 50 mg tablet 2022-06 00:00: 00 Yes [id number] 50mg Take 1 tablet by mouth as needed for Migraine. [facility] topiramate 25 mg tablet 2022-06 00:00: 00 Yes [id number] 25mg Take 1 tablet by mouth in the morning and 1 tablet in the evening. [facility] amitriptyli ne 25 mg tablet 2022-06 00:00: 00 Yes [id number] 50mg Take 2 tablets by mouth at bedtime. [facility] SUMAtriptan (IMITREX) 50 mg tablet 2022-06 00:00: 00 Yes [id number] 50mg Take 1 tablet by mouth as needed for Migraine. [facility] topiramate 25 mg tablet 2022-06 00:00: 00 Yes [id number] 25mg Take 1 tablet by mouth in the morning and 1 tablet in the evening. [facility] amitriptyli ne 25 mg tablet 2022-06 00:00: 00 Yes [id number] 50mg Take 2 tablets by mouth at bedtime. [facility] SUMAtriptan (IMITREX) 50 mg tablet 2022-06 00:00: 00 Yes [id number] 50mg Take 1 tablet by mouth as needed for Migraine. [facility] topiramate 25 mg tablet 2022-06 00:00: 00 Yes [id number] 25mg Take 1 tablet by mouth in the morning and 1 tablet in the evening. [facility] amitriptyli ne 25 mg tablet 2022-06 00:00: 00 Yes [id number] 50mg Take 2 tablets by mouth at bedtime. [facility] SUMAtriptan (IMITREX) 50 mg tablet 2022-06 00:00: 00 Yes [id number] 50mg Take 1 tablet by mouth as needed for Migraine. [facility] topiramate 25 mg tablet 2022-06 00:00: 00 Yes [id number] 25mg Take 1 tablet by mouth in the morning and 1 tablet in the evening. [facility] amitriptyli ne 25 mg tablet 2022-06 00:00: 00 Yes [id number] 50mg Take 2 tablets by mouth at bedtime. [facility] SUMAtriptan (IMITREX) 50 mg tablet 2022-06 00:00: 00 Yes [id number] 50mg Take 1 tablet by mouth as needed for Migraine. [facility] topiramate 25 mg tablet 2022-06 00:00: 00 Yes [id number] 25mg Take 1 tablet by mouth in the morning and 1 tablet in the evening. [facility] amitriptyli ne 25 mg tablet 2022-06 00:00: 00 Yes [id number] 50mg Take 2 tablets by mouth at bedtime. [facility] SUMAtriptan (IMITREX) 50 mg tablet 2022-06 00:00: 00 Yes [id number] 50mg Take 1 tablet by mouth as needed for Migraine. [facility] topiramate 25 mg tablet 2022-06 00:00: 00 Yes [id number] 25mg Take 1 tablet by mouth in the morning and 1 tablet in the evening. [facility] amitriptyli ne 25 mg tablet 2022-06 00:00: 00 Yes [id number] 50mg Take 2 tablets by mouth at bedtime. [facility] SUMAtriptan (IMITREX) 50 mg tablet 2022-06 00:00: 00 Yes [id number] 50mg Take 1 tablet by mouth as needed for Migraine. [facility] topiramate 25 mg tablet 2022-06 00:00: 00 Yes [id number] 25mg Take 1 tablet by mouth in the morning and 1 tablet in the evening. [facility] amitriptyli ne 25 mg tablet 2022-06 00:00: 00 Yes [id number] 50mg Take 2 tablets by mouth at bedtime. [facility] SUMAtriptan (IMITREX) 50 mg tablet 2022-06 00:00: 00 Yes [id number] 50mg Take 1 tablet by mouth as needed for Migraine. [facility] topiramate 25 mg tablet 2022-06 00:00: 00 Yes [id number] 25mg Take 1 tablet by mouth in the morning and 1 tablet in the evening. [facility] amitriptyli ne 25 mg tablet 2022-06 00:00: 00 Yes [id number] 50mg Take 2 tablets by mouth at bedtime. [facility] SUMAtriptan (IMITREX) 50 mg tablet 2022-06 00:00: 00 Yes [id number] 50mg Take 1 tablet by mouth as needed for Migraine. [facility] topiramate 25 mg tablet 2022-06 00:00: 00 Yes [id number] 25mg Take 1 tablet by mouth in the morning and 1 tablet in the evening. [facility] amitriptyli ne 25 mg tablet 2022-06 00:00: 00 Yes [id number] 50mg Take 2 tablets by mouth at bedtime. [facility] SUMAtriptan (IMITREX) 50 mg tablet 2022-06 00:00: 00 Yes [id number] 50mg Take 1 tablet by mouth as needed for Migraine. [facility] topiramate 25 mg tablet 2022-06 00:00: 00 Yes [id number] 25mg Take 1 tablet by mouth in the morning and 1 tablet in the evening. [facility] amitriptyli ne 25 mg tablet 2022-06 00:00: 00 Yes [id number] 50mg Take 2 tablets by mouth at bedtime. [facility] SUMAtriptan (IMITREX) 50 mg tablet 2022-06 00:00: 00 Yes [id number] 50mg Take 1 tablet by mouth as needed for Migraine. [facility] topiramate 25 mg tablet 2022-06 00:00: 00 Yes [id number] 25mg Take 1 tablet by mouth in the morning and 1 tablet in the evening. [facility] amitriptyli ne 25 mg tablet 2022-06 00:00: 00 Yes [id number] 50mg Take 2 tablets by mouth at bedtime. [facility] SUMAtriptan (IMITREX) 50 mg tablet 2022-06 00:00: 00 Yes [id number] 50mg Take 1 tablet by mouth as needed for Migraine. [facility] topiramate 25 mg tablet 2022-06 00:00: 00 Yes [id number] 25mg Take 1 tablet by mouth in the morning and 1 tablet in the evening. [facility] amitriptyli ne 25 mg tablet 2022-06 00:00: 00 Yes [id number] 50mg Take 2 tablets by mouth at bedtime. [facility] SUMAtriptan (IMITREX) 50 mg tablet 2022-06 00:00: 00 Yes [id number] 50mg Take 1 tablet by mouth as needed for Migraine. [facility] topiramate 25 mg tablet 2022-06 00:00: 00 Yes [id number] 25mg Take 1 tablet by mouth in the morning and 1 tablet in the evening. [facility] amitriptyli ne 25 mg tablet 2022-06 00:00: 00 Yes [id number] 50mg Take 2 tablets by mouth at bedtime. [facility] SUMAtriptan (IMITREX) 50 mg tablet 2022-06 00:00: 00 Yes [id number] 50mg Take 1 tablet by mouth as needed for Migraine. [facility] topiramate 25 mg tablet 2022-06 00:00: 00 Yes [id number] 25mg Take 1 tablet by mouth in the morning and 1 tablet in the evening. [facility] amitriptyli ne 25 mg tablet 2022-06 00:00: 00 Yes [id number] 50mg Take 2 tablets by mouth at bedtime. [facility] SUMAtriptan (IMITREX) 50 mg tablet 2022-06 00:00: 00 Yes [id number] 50mg Take 1 tablet by mouth as needed for Migraine. [facility] topiramate 25 mg tablet 2022-06 00:00: 00 Yes [id number] 25mg Take 1 tablet by mouth in the morning and 1 tablet in the evening. [facility] amitriptyli ne 25 mg tablet 2022-06 00:00: 00 Yes [id number] 50mg Take 2 tablets by mouth at bedtime. [facility] SUMAtriptan (IMITREX) 50 mg tablet 2022-06 00:00: 00 Yes [id number] 50mg Take 1 tablet by mouth as needed for Migraine. [facility] topiramate 25 mg tablet 2022-06 00:00: 00 Yes [id number] 25mg Take 1 tablet by mouth in the morning and 1 tablet in the evening. [facility] amitriptyli ne 25 mg tablet 2022-06 00:00: 00 Yes [id number] 50mg Take 2 tablets by mouth at bedtime. [facility] SUMAtriptan (IMITREX) 50 mg tablet 2022-06 00:00: 00 Yes [id number] 50mg Take 1 tablet by mouth as needed for Migraine. [facility] topiramate 25 mg tablet 2022-06 00:00: 00 Yes [id number] 25mg Take 1 tablet by mouth in the morning and 1 tablet in the evening. [facility] amitriptyli ne 25 mg tablet 2022-06 00:00: 00 Yes [id number] 50mg Take 2 tablets by mouth at bedtime. [facility] SUMAtriptan (IMITREX) 50 mg tablet 2022-06 00:00: 00 Yes [id number] 50mg Take 1 tablet by mouth as needed for Migraine. [facility] topiramate 25 mg tablet 2022-06 00:00: 00 Yes [id number] 25mg Take 1 tablet by mouth in the morning and 1 tablet in the evening. [facility] amitriptyli ne 25 mg tablet 2022-06 00:00: 00 Yes [id number] 50mg Take 2 tablets by mouth at bedtime. [facility] SUMAtriptan (IMITREX) 50 mg tablet 2022-06 00:00: 00 Yes [id number] 50mg Take 1 tablet by mouth as needed for Migraine. [facility] topiramate 25 mg tablet 2022-06 00:00: 00 Yes [id number] 25mg Take 1 tablet by mouth in the morning and 1 tablet in the evening. [facility] amitriptyli ne 25 mg tablet 2022-06 00:00: 00 Yes [id number] 50mg Take 2 tablets by mouth at bedtime. [facility] SUMAtriptan (IMITREX) 50 mg tablet 2022-06 00:00: 00 Yes [id number] 50mg Take 1 tablet by mouth as needed for Migraine. [facility] topiramate 25 mg tablet 2022-06 00:00: 00 Yes [id number] 25mg Take 1 tablet by mouth in the morning and 1 tablet in the evening. [facility] amitriptyli ne 25 mg tablet 2022-06 00:00: 00 Yes [id number] 50mg Take 2 tablets by mouth at bedtime. [facility] SUMAtriptan (IMITREX) 50 mg tablet 2022-06 00:00: 00 Yes [id number] 50mg Take 1 tablet by mouth as needed for Migraine. [facility] topiramate 25 mg tablet 2022-06 00:00: 00 Yes [id number] 25mg Take 1 tablet by mouth in the morning and 1 tablet in the evening. [facility] [facility] amitriptyli ne 25 mg tablet 2022-06 00:00: 00 Yes [id number] 50mg Take 2 tablets by mouth at bedtime. [facility] SUMAtriptan (IMITREX) 50 mg tablet 2022-06 00:00: 00 Yes [id number] 50mg Take 1 tablet by mouth as needed for Migraine. [facility] topiramate 25 mg tablet 2022-06 00:00: 00 Yes [id number] 25mg Take 1 tablet by mouth in the morning and 1 tablet in the evening. [facility] amitriptyli ne 25 mg tablet 2022-06 00:00: 00 Yes [id number] 50mg Take 2 tablets by mouth at bedtime. [facility] SUMAtriptan (IMITREX) 50 mg tablet 2022-06 00:00: 00 Yes [id number] 50mg Take 1 tablet by mouth as needed for Migraine. [facility] topiramate 25 mg tablet 2022-06 00:00: 00 Yes [id number] 25mg Take 1 tablet by mouth in the morning and 1 tablet in the evening. [facility] amitriptyli ne 25 mg tablet 2022-06 00:00: 00 Yes [id number] 50mg Take 2 tablets by mouth at bedtime. [facility] SUMAtriptan (IMITREX) 50 mg tablet 2022-06 00:00: 00 Yes [id number] 50mg Take 1 tablet by mouth as needed for Migraine. [facility] topiramate 25 mg tablet 2022-06 00:00: 00 Yes [id number] 25mg Take 1 tablet by mouth in the morning and 1 tablet in the evening. [facility] amitriptyli ne 25 mg tablet 2022-06 00:00: 00 Yes [id number] 50mg Take 2 tablets by mouth at bedtime. [facility] SUMAtriptan (IMITREX) 50 mg tablet 2022-06 00:00: 00 Yes [id number] 50mg Take 1 tablet by mouth as needed for Migraine. [facility] topiramate 25 mg tablet 2022-06 00:00: 00 Yes [id number] 25mg Take 1 tablet by mouth in the morning and 1 tablet in the evening. [facility] amitriptyli ne 25 mg tablet 2022-06 00:00: 00 Yes [id number] 50mg Take 2 tablets by mouth at bedtime. [facility] SUMAtriptan (IMITREX) 50 mg tablet 2022-06 00:00: 00 Yes [id number] 50mg Take 1 tablet by mouth as needed for Migraine. [facility] topiramate 25 mg tablet 2022-06 00:00: 00 Yes [id number] 25mg Take 1 tablet by mouth in the morning and 1 tablet in the evening. [facility] amitriptyli ne 25 mg tablet 2022-06 00:00: 00 Yes [id number] 50mg Take 2 tablets by mouth at bedtime. [facility] SUMAtriptan (IMITREX) 50 mg tablet 2022-06 00:00: 00 Yes [id number] 50mg Take 1 tablet by mouth as needed for Migraine. [facility] topiramate 25 mg tablet 2022-06 00:00: 00 Yes [id number] 25mg Take 1 tablet by mouth in the morning and 1 tablet in the evening. [facility] amitriptyli ne 25 mg tablet 2022-06 00:00: 00 Yes [id number] 50mg Take 2 tablets by mouth at bedtime. [facility] SUMAtriptan (IMITREX) 50 mg tablet 2022-06 00:00: 00 Yes [id number] 50mg Take 1 tablet by mouth as needed for Migraine. [facility] topiramate 25 mg tablet 2022-06 00:00: 00 Yes [id number] 25mg Take 1 tablet by mouth in the morning and 1 tablet in the evening. [facility] amitriptyli ne 25 mg tablet 2022-06 00:00: 00 Yes [id number] 50mg Take 2 tablets by mouth at bedtime. [facility] SUMAtriptan (IMITREX) 50 mg tablet 2022-06 00:00: 00 Yes [id number] 50mg Take 1 tablet by mouth as needed for Migraine. [facility] topiramate 25 mg tablet 2022-06 00:00: 00 Yes [id number] 25mg Take 1 tablet by mouth in the morning and 1 tablet in the evening. [facility] amitriptyli ne 25 mg tablet 2022-06 00:00: 00 Yes [id number] 50mg Take 2 tablets by mouth at bedtime. [facility] SUMAtriptan (IMITREX) 50 mg tablet 2022-06 00:00: 00 Yes [id number] 50mg Take 1 tablet by mouth as needed for Migraine. [facility] topiramate 25 mg tablet 2022-06 00:00: 00 Yes [id number] 25mg Take 1 tablet by mouth in the morning and 1 tablet in the evening. [facility] amitriptyli ne 25 mg tablet 2022-06 00:00: 00 Yes [id number] 50mg Take 2 tablets by mouth at bedtime. [facility] SUMAtriptan (IMITREX) 50 mg tablet 2022-06 00:00: 00 Yes [id number] 50mg Take 1 tablet by mouth as needed for Migraine. [facility] topiramate 25 mg tablet 2022-06 00:00: 00 Yes [id number] 25mg Take 1 tablet by mouth in the morning and 1 tablet in the evening. [facility] amitriptyli ne 25 mg tablet 2022-06 00:00: 00 Yes [id number] 50mg Take 2 tablets by mouth at bedtime. [facility] SUMAtriptan (IMITREX) 50 mg tablet 2022-06 00:00: 00 Yes [id number] 50mg Take 1 tablet by mouth as needed for Migraine. [facility] topiramate 25 mg tablet 2022-06 00:00: 00 Yes [id number] 25mg Take 1 tablet by mouth in the morning and 1 tablet in the evening. [facility] amitriptyli ne 25 mg tablet 2022-06 00:00: 00 Yes [id number] 50mg Take 2 tablets by mouth at bedtime. [facility] SUMAtriptan (IMITREX) 50 mg tablet 2022-06 00:00: 00 Yes [id number] 50mg Take 1 tablet by mouth as needed for Migraine. [facility] topiramate 25 mg tablet 2022-06 00:00: 00 Yes [id number] 25mg Take 1 tablet by mouth in the morning and 1 tablet in the evening. [facility] amitriptyli ne 25 mg tablet 2022-06 00:00: 00 Yes [id number] 50mg Take 2 tablets by mouth at bedtime. [facility] SUMAtriptan (IMITREX) 50 mg tablet 2022-06 00:00: 00 Yes [id number] 50mg Take 1 tablet by mouth as needed for Migraine. [facility] topiramate 25 mg tablet 2022-06 00:00: 00 Yes [id number] 25mg Take 1 tablet by mouth in the morning and 1 tablet in the evening. [facility] amitriptyli ne 25 mg tablet 2022-06 00:00: 00 Yes [id number] 50mg Take 2 tablets by mouth at bedtime. [facility] SUMAtriptan (IMITREX) 50 mg tablet 2022-06 00:00: 00 Yes [id number] 50mg Take 1 tablet by mouth as needed for Migraine. [facility] topiramate 25 mg tablet 2022-06 00:00: 00 Yes [id number] 25mg Take 1 tablet by mouth in the morning and 1 tablet in the evening. [facility] amitriptyli ne 25 mg tablet 2022-06 00:00: 00 Yes [id number] 50mg Take 2 tablets by mouth at bedtime. [facility] SUMAtriptan (IMITREX) 50 mg tablet 2022-06 00:00: 00 Yes [id number] 50mg Take 1 tablet by mouth as needed for Migraine. [facility] topiramate 25 mg tablet 2022-06 00:00: 00 Yes [id number] 25mg Take 1 tablet by mouth in the morning and 1 tablet in the evening. [facility] amitriptyli ne 25 mg tablet 2022-06 00:00: 00 Yes [id number] 50mg Take 2 tablets by mouth at bedtime. [facility] SUMAtriptan (IMITREX) 50 mg tablet 2022-06 00:00: 00 Yes [id number] 50mg Take 1 tablet by mouth as needed for Migraine. [facility] topiramate 25 mg tablet 2022-06 00:00: 00 Yes [id number] 25mg Take 1 tablet by mouth in the morning and 1 tablet in the evening. [facility] amitriptyli ne 25 mg tablet 2022-06 00:00: 00 Yes [id number] 50mg Take 2 tablets by mouth at bedtime. [facility] SUMAtriptan (IMITREX) 50 mg tablet 2022-06 00:00: 00 Yes [id number] 50mg Take 1 tablet by mouth as needed for Migraine. [facility] topiramate 25 mg tablet 2022-06 00:00: 00 Yes [id number] 25mg Take 1 tablet by mouth in the morning and 1 tablet in the evening. [facility] amitriptyli ne 25 mg tablet 2022-06 00:00: 00 Yes [id number] 50mg Take 2 tablets by mouth at bedtime. [facility] SUMAtriptan (IMITREX) 50 mg tablet 2022-06 00:00: 00 Yes [id number] 50mg Take 1 tablet by mouth as needed for Migraine. [facility] topiramate 25 mg tablet 2022-06 00:00: 00 Yes [id number] 25mg Take 1 tablet by mouth in the morning and 1 tablet in the evening. [facility] amitriptyli ne 25 mg tablet 2022-06 00:00: 00 Yes [id number] 50mg Take 2 tablets by mouth at bedtime. [facility] SUMAtriptan (IMITREX) 50 mg tablet 2022-06 00:00: 00 Yes [id number] 50mg Take 1 tablet by mouth as needed for Migraine. [facility] topiramate 25 mg tablet 2022-06 00:00: 00 Yes [id number] 25mg Take 1 tablet by mouth in the morning and 1 tablet in the evening. [facility] amitriptyli ne 25 mg tablet 2022-06 00:00: 00 Yes [id number] 50mg Take 2 tablets by mouth at bedtime. [facility] SUMAtriptan (IMITREX) 50 mg tablet 2022-06 00:00: 00 Yes [id number] 50mg Take 1 tablet by mouth as needed for Migraine. [facility] topiramate 25 mg tablet 2022-06 00:00: 00 Yes [id number] 25mg Take 1 tablet by mouth in the morning and 1 tablet in the evening. [facility] amitriptyli ne 25 mg tablet 2022-06 00:00: 00 Yes [id number] 50mg Take 2 tablets by mouth at bedtime. [facility] SUMAtriptan (IMITREX) 50 mg tablet 2022-06 00:00: 00 Yes [id number] 50mg Take 1 tablet by mouth as needed for Migraine. [facility] topiramate 25 mg tablet 2022-06 00:00: 00 Yes [id number] 25mg Take 1 tablet by mouth in the morning and 1 tablet in the evening. [facility] amitriptyli ne 25 mg tablet 2022-06 00:00: 00 Yes [id number] 50mg Take 2 tablets by mouth at bedtime. [facility] SUMAtriptan (IMITREX) 50 mg tablet 2022-06 00:00: 00 Yes [id number] 50mg Take 1 tablet by mouth as needed for Migraine. [facility] topiramate 25 mg tablet 2022-06 00:00: 00 Yes [id number] 25mg Take 1 tablet by mouth in the morning and 1 tablet in the evening. [facility] amitriptyli ne 25 mg tablet 2022-06 00:00: 00 Yes [id number] 50mg Take 2 tablets by mouth at bedtime. [facility] SUMAtriptan (IMITREX) 50 mg tablet 2022-06 00:00: 00 Yes [id number] 50mg Take 1 tablet by mouth as needed for Migraine. [facility] topiramate 25 mg tablet 2022-06 00:00: 00 Yes [id number] 25mg Take 1 tablet by mouth in the morning and 1 tablet in the evening. [facility] amitriptyli ne 25 mg tablet 2022-06 00:00: 00 Yes [id number] 50mg Take 2 tablets by mouth at bedtime. [facility] SUMAtriptan (IMITREX) 50 mg tablet 2022-06 00:00: 00 Yes [id number] 50mg Take 1 tablet by mouth as needed for Migraine. [facility] topiramate 25 mg tablet 2022-06 00:00: 00 Yes [id number] 25mg Take 1 tablet by mouth in the morning and 1 tablet in the evening. [facility] amitriptyli ne 25 mg tablet 2022-06 00:00: 00 Yes [id number] 50mg Take 2 tablets by mouth at bedtime. [facility] SUMAtriptan (IMITREX) 50 mg tablet 2022-06 00:00: 00 Yes [id number] 50mg Take 1 tablet by mouth as needed for Migraine. [facility] topiramate 25 mg tablet 2022-06 00:00: 00 Yes [id number] 25mg Take 1 tablet by mouth in the morning and 1 tablet in the evening. [facility] amitriptyli ne 25 mg tablet 2022-06 00:00: 00 Yes [id number] 50mg Take 2 tablets by mouth at bedtime. [facility] SUMAtriptan (IMITREX) 50 mg tablet 2022-06 00:00: 00 Yes [id number] 50mg Take 1 tablet by mouth as needed for Migraine. [facility] topiramate 25 mg tablet 2022-06 00:00: 00 Yes [id number] 25mg Take 1 tablet by mouth in the morning and 1 tablet in the evening. [facility] amitriptyli ne 25 mg tablet 2022-06 00:00: 00 Yes [id number] 50mg Take 2 tablets by mouth at bedtime. [facility] SUMAtriptan (IMITREX) 50 mg tablet 2022-06 00:00: 00 Yes [id number] 50mg Take 1 tablet by mouth as needed for Migraine. [facility] topiramate 25 mg tablet 2022-06 00:00: 00 Yes [id number] 25mg Take 1 tablet by mouth in the morning and 1 tablet in the evening. [facility] amitriptyli ne 25 mg tablet 2022-06 00:00: 00 Yes [id number] 50mg Take 2 tablets by mouth at bedtime. [facility] SUMAtriptan (IMITREX) 50 mg tablet 2022-06 00:00: 00 Yes [id number] 50mg Take 1 tablet by mouth as needed for Migraine. [facility] topiramate 25 mg tablet 2022-06 00:00: 00 Yes [id number] 25mg Take 1 tablet by mouth in the morning and 1 tablet in the evening. [facility] amitriptyli ne 25 mg tablet 2022-06 00:00: 00 Yes [id number] 50mg Take 2 tablets by mouth at bedtime. [facility] SUMAtriptan (IMITREX) 50 mg tablet 2022-06 00:00: 00 Yes [id number] 50mg Take 1 tablet by mouth as needed for Migraine. [facility] topiramate 25 mg tablet 2022-06 00:00: 00 Yes [id number] 25mg Take 1 tablet by mouth in the morning and 1 tablet in the evening. [facility] amitriptyli ne 25 mg tablet 2022-06 00:00: 00 Yes [id number] 50mg Take 2 tablets by mouth at bedtime. [facility] SUMAtriptan (IMITREX) 50 mg tablet 2022-06 00:00: 00 Yes [id number] 50mg Take 1 tablet by mouth as needed for Migraine. [facility] topiramate 25 mg tablet 2022-06 00:00: 00 Yes [id number] 25mg Take 1 tablet by mouth in the morning and 1 tablet in the evening. [facility] amitriptyli ne 25 mg tablet 2022-06 00:00: 00 Yes [id number] 50mg Take 2 tablets by mouth at bedtime. [facility] SUMAtriptan (IMITREX) 50 mg tablet 2022-06 00:00: 00 Yes [id number] 50mg Take 1 tablet by mouth as needed for Migraine. [facility] topiramate 25 mg tablet 2022-06 00:00: 00 Yes [id number] 25mg Take 1 tablet by mouth in the morning and 1 tablet in the evening. [facility] amitriptyli ne 25 mg tablet 2022-06 00:00: 00 Yes [id number] 50mg Take 2 tablets by mouth at bedtime. [facility] SUMAtriptan (IMITREX) 50 mg tablet 2022-06 00:00: 00 Yes [id number] 50mg Take 1 tablet by mouth as needed for Migraine. [facility] topiramate 25 mg tablet 2022-06 00:00: 00 Yes [id number] 25mg Take 1 tablet by mouth in the morning and 1 tablet in the evening. [facility] amitriptyli ne 25 mg tablet 2022-06 00:00: 00 Yes [id number] 50mg Take 2 tablets by mouth at bedtime. [facility] SUMAtriptan (IMITREX) 50 mg tablet 2022-06 00:00: 00 Yes [id number] 50mg Take 1 tablet by mouth as needed for Migraine. [facility] topiramate 25 mg tablet 2022-06 00:00: 00 Yes [id number] 25mg Take 1 tablet by mouth in the morning and 1 tablet in the evening. [facility] amitriptyli ne 25 mg tablet 2022-06 00:00: 00 Yes [id number] 50mg Take 2 tablets by mouth at bedtime. [facility] SUMAtriptan (IMITREX) 50 mg tablet 2022-06 00:00: 00 Yes [id number] 50mg Take 1 tablet by mouth as needed for Migraine. [facility] topiramate 25 mg tablet 2022-06 00:00: 00 Yes [id number] 25mg Take 1 tablet by mouth in the morning and 1 tablet in the evening. [facility] amitriptyli ne 25 mg tablet 2022-06 00:00: 00 Yes [id number] 50mg Take 2 tablets by mouth at bedtime. [facility] SUMAtriptan (IMITREX) 50 mg tablet 2022-06 00:00: 00 Yes [id number] 50mg Take 1 tablet by mouth as needed for Migraine. [facility] topiramate 25 mg tablet 2022-06 00:00: 00 Yes [id number] 25mg Take 1 tablet by mouth in the morning and 1 tablet in the evening. [facility] amitriptyli ne 25 mg tablet 2022-06 00:00: 00 Yes [id number] 50mg Take 2 tablets by mouth at bedtime. [facility] SUMAtriptan (IMITREX) 50 mg tablet 2022-06 00:00: 00 Yes [id number] 50mg Take 1 tablet by mouth as needed for Migraine. [facility] topiramate 25 mg tablet 2022-06 00:00: 00 Yes [id number] 25mg Take 1 tablet by mouth in the morning and 1 tablet in the evening. [facility] topiramate 25 mg tablet 2022-06 00:00: 00 Yes [id number] 25mg Take 1 tablet by mouth in the morning and 1 tablet in the evening. [facility] topiramate 25 mg tablet 2022-06 00:00: 00 Yes [id number] 25mg Take 1 tablet by mouth in the morning and 1 tablet in the evening. [facility] topiramate 25 mg tablet 2022-06 00:00: 00 Yes [id number] 25mg Take 1 tablet by mouth in the morning and 1 tablet in the evening. [facility] topiramate 25 mg tablet 2022-06 00:00: 00 Yes [id number] 25mg Take 1 tablet by mouth in the morning and 1 tablet in the evening. [facility] topiramate 25 mg tablet 2022-06 00:00: 00 Yes [id number] 25mg Take 1 tablet by mouth in the morning and 1 tablet in the evening. [facility] topiramate 25 mg tablet 2022-06 00:00: 00 Yes [id number] 25mg Take 1 tablet by mouth in the morning and 1 tablet in the evening. [facility] topiramate 25 mg tablet 2022-06 00:00: 00 Yes [id number] 25mg Take 1 tablet by mouth in the morning and 1 tablet in the evening. [facility] topiramate 25 mg tablet 2022-06 00:00: 00 Yes [id number] 25mg Take 1 tablet by mouth in the morning and 1 tablet in the evening. [facility] amitriptyli ne 25 mg tablet 2022-06 00:00: 00 08-16 00:00 :00 No [id number] 50mg Take 2 tablets by mouth at bedtime. [facility] SUMAtriptan (IMITREX) 50 mg tablet 2022-06 00:00: 00 08-16 00:00 :00 No [id number] 50mg Take 1 tablet by mouth as needed for Migraine. [facility] amitriptyli ne 25 mg tablet 2022-06 00:00: 00 08-16 00:00 :00 No [id number] 50mg Take 2 tablets by mouth at bedtime. [facility] SUMAtriptan (IMITREX) 50 mg tablet 2022-06 00:00: 00 08-16 00:00 :00 No [id number] 50mg Take 1 tablet by mouth as needed for Migraine. [facility] hydroxychlo roquine (PLAQUENIL) 200 mg tablet 2022-06 00:00: 00 Yes [id number] 300mg Take 1.5 tablets by mouth in the morning. [facility] hydroxychlo roquine (PLAQUENIL) 200 mg tablet 2022-06 00:00: 00 Yes [id number] 300mg Take 1.5 tablets by mouth in the morning. [facility] hydroxychlo roquine (PLAQUENIL) 200 mg tablet 2022-06 00:00: 00 Yes [id number] 300mg Take 1.5 tablets by mouth in the morning. [facility] hydroxychlo roquine (PLAQUENIL) 200 mg tablet 2022-06 00:00: 00 Yes [id number] 300mg Take 1.5 tablets by mouth in the morning. [facility] hydroxychlo roquine (PLAQUENIL) 200 mg tablet 2022-06 00:00: 00 Yes [id number] 300mg Take 1.5 tablets by mouth in the morning. [facility] hydroxychlo roquine (PLAQUENIL) 200 mg tablet 2022-06 00:00: 00 Yes [id number] 300mg Take 1.5 tablets by mouth in the morning. [facility] hydroxychlo roquine (PLAQUENIL) 200 mg tablet 2022-06 00:00: 00 Yes [id number] 300mg Take 1.5 tablets by mouth in the morning. [facility] hydroxychlo roquine (PLAQUENIL) 200 mg tablet 2022-06 00:00: 00 Yes [id number] 300mg Take 1.5 tablets by mouth in the morning. [facility] hydroxychlo roquine (PLAQUENIL) 200 mg tablet 2022-06 00:00: 00 Yes [id number] 300mg Take 1.5 tablets by mouth in the morning. [facility] hydroxychlo roquine (PLAQUENIL) 200 mg tablet 2022-06 00:00: 00 Yes [id number] 300mg Take 1.5 tablets by mouth in the morning. [facility] hydroxychlo roquine (PLAQUENIL) 200 mg tablet 2022-06 00:00: 00 Yes [id number] 300mg Take 1.5 tablets by mouth in the morning. [facility] hydroxychlo roquine (PLAQUENIL) 200 mg tablet 2022-06 00:00: 00 Yes [id number] 300mg Take 1.5 tablets by mouth in the morning. [facility] hydroxychlo roquine (PLAQUENIL) 200 mg tablet 2022-06 00:00: 00 Yes [id number] 300mg Take 1.5 tablets by mouth in the morning. [facility] hydroxychlo roquine (PLAQUENIL) 200 mg tablet 2022-06 00:00: 00 Yes [id number] 300mg Take 1.5 tablets by mouth in the morning. [facility] hydroxychlo roquine (PLAQUENIL) 200 mg tablet 2022-06 00:00: 00 Yes [id number] 300mg Take 1.5 tablets by mouth in the morning. [facility] hydroxychlo roquine (PLAQUENIL) 200 mg tablet 2022-06 00:00: 00 Yes [id number] 300mg Take 1.5 tablets by mouth in the morning. [facility] hydroxychlo roquine (PLAQUENIL) 200 mg tablet 2022-06 00:00: 00 Yes [id number] 300mg Take 1.5 tablets by mouth in the morning. [facility] hydroxychlo roquine (PLAQUENIL) 200 mg tablet 2022-06 00:00: 00 Yes [id number] 300mg Take 1.5 tablets by mouth in the morning. [facility] hydroxychlo roquine (PLAQUENIL) 200 mg tablet 2022-06 00:00: 00 Yes [id number] 300mg Take 1.5 tablets by mouth in the morning. [facility] hydroxychlo roquine (PLAQUENIL) 200 mg tablet 2022-06 00:00: 00 Yes [id number] 300mg Take 1.5 tablets by mouth in the morning. [facility] hydroxychlo roquine (PLAQUENIL) 200 mg tablet 2022-06 00:00: 00 Yes [id number] 300mg Take 1.5 tablets by mouth in the morning. [facility] hydroxychlo roquine (PLAQUENIL) 200 mg tablet 2022-06 00:00: 00 Yes [id number] 300mg Take 1.5 tablets by mouth in the morning. [facility] hydroxychlo roquine (PLAQUENIL) 200 mg tablet 2022-06 00:00: 00 Yes [id number] 300mg Take 1.5 tablets by mouth in the morning. [facility] hydroxychlo roquine (PLAQUENIL) 200 mg tablet 2022-06 00:00: 00 Yes [id number] 300mg Take 1.5 tablets by mouth in the morning. [facility] hydroxychlo roquine (PLAQUENIL) 200 mg tablet 2022-06 00:00: 00 Yes [id number] 300mg Take 1.5 tablets by mouth in the morning. [facility] hydroxychlo roquine (PLAQUENIL) 200 mg tablet 2022-06 00:00: 00 Yes [id number] 300mg Take 1.5 tablets by mouth in the morning. [facility] hydroxychlo roquine (PLAQUENIL) 200 mg tablet 2022-06 00:00: 00 Yes [id number] 300mg Take 1.5 tablets by mouth in the morning. [facility] hydroxychlo roquine (PLAQUENIL) 200 mg tablet 2022-06 00:00: 00 Yes [id number] 300mg Take 1.5 tablets by mouth in the morning. [facility] hydroxychlo roquine (PLAQUENIL) 200 mg tablet 2022-06 00:00: 00 Yes [id number] 300mg Take 1.5 tablets by mouth in the morning. [facility] hydroxychlo roquine (PLAQUENIL) 200 mg tablet 2022-06 00:00: 00 Yes [id number] 300mg Take 1.5 tablets by mouth in the morning. [facility] hydroxychlo roquine (PLAQUENIL) 200 mg tablet 2022-06 00:00: 00 Yes [id number] 300mg Take 1.5 tablets by mouth in the morning. [facility] hydroxychlo roquine (PLAQUENIL) 200 mg tablet 2022-06 00:00: 00 Yes [id number] 300mg Take 1.5 tablets by mouth in the morning. [facility] hydroxychlo roquine (PLAQUENIL) 200 mg tablet 2022-06 00:00: 00 Yes [id number] 300mg Take 1.5 tablets by mouth in the morning. [facility] hydroxychlo roquine (PLAQUENIL) 200 mg tablet 2022-06 00:00: 00 Yes [id number] 300mg Take 1.5 tablets by mouth in the morning. [facility] hydroxychlo roquine (PLAQUENIL) 200 mg tablet 2022-06 00:00: 00 Yes [id number] 300mg Take 1.5 tablets by mouth in the morning. [facility] hydroxychlo roquine (PLAQUENIL) 200 mg tablet 2022-06 00:00: 00 Yes [id number] 300mg Take 1.5 tablets by mouth in the morning. [facility] hydroxychlo roquine (PLAQUENIL) 200 mg tablet 2022-06 00:00: 00 Yes [id number] 300mg Take 1.5 tablets by mouth in the morning. [facility] hydroxychlo roquine (PLAQUENIL) 200 mg tablet 2022-06 00:00: 00 Yes [id number] 300mg Take 1.5 tablets by mouth in the morning. [facility] hydroxychlo roquine (PLAQUENIL) 200 mg tablet 2022-06 00:00: 00 Yes [id number] 300mg Take 1.5 tablets by mouth in the morning. [facility] hydroxychlo roquine (PLAQUENIL) 200 mg tablet 2022-06 00:00: 00 Yes [id number] 300mg Take 1.5 tablets by mouth in the morning. [facility] hydroxychlo roquine (PLAQUENIL) 200 mg tablet 2022-06 00:00: 00 Yes [id number] 300mg Take 1.5 tablets by mouth in the morning. [facility] hydroxychlo roquine (PLAQUENIL) 200 mg tablet 2022-06 00:00: 00 Yes [id number] 300mg Take 1.5 tablets by mouth in the morning. [facility] hydroxychlo roquine (PLAQUENIL) 200 mg tablet 2022-06 00:00: 00 Yes [id number] 300mg Take 1.5 tablets by mouth in the morning. [facility] hydroxychlo roquine (PLAQUENIL) 200 mg tablet 2022-06 00:00: 00 Yes [id number] 300mg Take 1.5 tablets by mouth in the morning. [facility] hydroxychlo roquine (PLAQUENIL) 200 mg tablet 2022-06 00:00: 00 Yes [id number] 300mg Take 1.5 tablets by mouth in the morning. [facility] hydroxychlo roquine (PLAQUENIL) 200 mg tablet 2022-06 00:00: 00 Yes [id number] 300mg Take 1.5 tablets by mouth in the morning. [facility] hydroxychlo roquine (PLAQUENIL) 200 mg tablet 2022-06 00:00: 00 Yes [id number] 300mg Take 1.5 tablets by mouth in the morning. [facility] hydroxychlo roquine (PLAQUENIL) 200 mg tablet 2022-06 00:00: 00 Yes [id number] 300mg Take 1.5 tablets by mouth in the morning. [facility] hydroxychlo roquine (PLAQUENIL) 200 mg tablet 2022-06 00:00: 00 Yes [id number] 300mg Take 1.5 tablets by mouth in the morning. [facility] hydroxychlo roquine (PLAQUENIL) 200 mg tablet 2022-06 00:00: 00 Yes [id number] 300mg Take 1.5 tablets by mouth in the morning. [facility] hydroxychlo roquine (PLAQUENIL) 200 mg tablet 2022-06 00:00: 00 Yes [id number] 300mg Take 1.5 tablets by mouth in the morning. [facility] hydroxychlo roquine (PLAQUENIL) 200 mg tablet 2022-06 00:00: 00 Yes [id number] 300mg Take 1.5 tablets by mouth in the morning. [facility] hydroxychlo roquine (PLAQUENIL) 200 mg tablet 2022-06 00:00: 00 Yes [id number] 300mg Take 1.5 tablets by mouth in the morning. [facility] hydroxychlo roquine (PLAQUENIL) 200 mg tablet 2022-06 00:00: 00 Yes [id number] 300mg Take 1.5 tablets by mouth in the morning. [facility] hydroxychlo roquine (PLAQUENIL) 200 mg tablet 2022-06 00:00: 00 Yes [id number] 300mg Take 1.5 tablets by mouth in the morning. [facility] hydroxychlo roquine (PLAQUENIL) 200 mg tablet 2022-06 00:00: 00 Yes [id number] 300mg Take 1.5 tablets by mouth in the morning. [facility] hydroxychlo roquine (PLAQUENIL) 200 mg tablet 2022-06 00:00: 00 Yes [id number] 300mg Take 1.5 tablets by mouth in the morning. [facility] hydroxychlo roquine (PLAQUENIL) 200 mg tablet 2022-06 00:00: 00 Yes [id number] 300mg Take 1.5 tablets by mouth in the morning. [facility] hydroxychlo roquine (PLAQUENIL) 200 mg tablet 2022-06 00:00: 00 Yes [id number] 300mg Take 1.5 tablets by mouth in the morning. [facility] hydroxychlo roquine (PLAQUENIL) 200 mg tablet 2022-06 00:00: 00 Yes [id number] 300mg Take 1.5 tablets by mouth in the morning. [facility] hydroxychlo roquine (PLAQUENIL) 200 mg tablet 2022-06 00:00: 00 Yes [id number] 300mg Take 1.5 tablets by mouth in the morning. [facility] hydroxychlo roquine (PLAQUENIL) 200 mg tablet 2022-06 00:00: 00 Yes [id number] 300mg Take 1.5 tablets by mouth in the morning. [facility] hydroxychlo roquine (PLAQUENIL) 200 mg tablet 2022-06 00:00: 00 Yes [id number] 300mg Take 1.5 tablets by mouth in the morning. [facility] hydroxychlo roquine (PLAQUENIL) 200 mg tablet 2022-06 00:00: 00 Yes [id number] 300mg Take 1.5 tablets by mouth in the morning. [facility] hydroxychlo roquine (PLAQUENIL) 200 mg tablet 2022-06 00:00: 00 Yes [id number] 300mg Take 1.5 tablets by mouth in the morning. [facility] hydroxychlo roquine (PLAQUENIL) 200 mg tablet 2022-06 00:00: 00 Yes [id number] 300mg Take 1.5 tablets by mouth in the morning. [facility] hydroxychlo roquine (PLAQUENIL) 200 mg tablet 2022-06 00:00: 00 Yes [id number] 300mg Take 1.5 tablets by mouth in the morning. [facility] hydroxychlo roquine (PLAQUENIL) 200 mg tablet 2022-06 00:00: 00 Yes [id number] 300mg Take 1.5 tablets by mouth in the morning. [facility] hydroxychlo roquine (PLAQUENIL) 200 mg tablet 2022-06 00:00: 00 Yes [id number] 300mg Take 1.5 tablets by mouth in the morning. [facility] hydroxychlo roquine (PLAQUENIL) 200 mg tablet 2022-06 00:00: 00 Yes [id number] 300mg Take 1.5 tablets by mouth in the morning. [facility] Methylpredn isolone (MEDROL) tablet 4 mg 2022-06 04:59: 37 05-03 04:59 :00 No 4mg [Order 1 Start] Name: Methylpred nisolone (MEDROL) tablet 4 mg Signed Summary: 4 mg, Oral, Q6H TAPER, 4 doses, First dose on 05/01/23 at 2300, Last dose on 05/02/23 at 1700, Routine [Order 1 End] [Order 2 Start] Name: Methylpred nisolone (MEDROL) tablet 4 mg Signed Summary: 4 mg, Oral, Q8H TAPER, 3 doses, First dose on Wed05/03/23 at 0100, Last dose on Wed05/03/23 at 1700, Routine [Order 2 End] [facility] ferrous sulfate 325 mg (65 mg iron) tablet 2022-06 17:08: 54 Yes 325mg Take 1 tablet by mouth in the morning. [facility] ferrous sulfate 325 mg (65 mg iron) tablet 2022-06 17:08: 54 Yes 325mg Take 1 tablet by mouth in the morning. [facility] ferrous sulfate 325 mg (65 mg iron) tablet 2022-06 17:08: 54 Yes 325mg Take 1 tablet by mouth in the morning. [facility] ferrous sulfate 325 mg (65 mg iron) tablet 2022-06 17:08: 54 Yes 325mg Take 1 tablet by mouth in the morning. [facility] ferrous sulfate 325 mg (65 mg iron) tablet 2022-06 17:08: 54 Yes 325mg Take 1 tablet by mouth in the morning. [facility] ferrous sulfate 325 mg (65 mg iron) tablet 2022-06 17:08: 54 Yes 325mg Take 1 tablet by mouth in the morning. [facility] ferrous sulfate 325 mg (65 mg iron) tablet 2022-06 17:08: 54 Yes 325mg Take 1 tablet by mouth in the morning. [facility] ferrous sulfate 325 mg (65 mg iron) tablet 2022-06 17:08: 54 Yes 325mg Take 1 tablet by mouth in the morning. [facility] ferrous sulfate 325 mg (65 mg iron) tablet 2022-06 17:08: 54 Yes 325mg Take 1 tablet by mouth in the morning. [facility] ferrous sulfate 325 mg (65 mg iron) tablet 2022-06 17:08: 54 Yes 325mg Take 1 tablet by mouth in the morning. [facility] ferrous sulfate 325 mg (65 mg iron) tablet 2022-06 17:08: 54 Yes 325mg Take 1 tablet by mouth in the morning. [facility] ferrous sulfate 325 mg (65 mg iron) tablet 2022-06 17:08: 54 Yes 325mg Take 1 tablet by mouth in the morning. [facility] ferrous sulfate 325 mg (65 mg iron) tablet 2022-06 17:08: 54 Yes 325mg Take 1 tablet by mouth in the morning. [facility] ferrous sulfate 325 mg (65 mg iron) tablet 2022-06 17:08: 54 Yes 325mg Take 1 tablet by mouth in the morning. [facility] ferrous sulfate 325 mg (65 mg iron) tablet 2022-06 17:08: 54 Yes 325mg Take 1 tablet by mouth in the morning. [facility] ferrous sulfate 325 mg (65 mg iron) tablet 2022-06 17:08: 54 Yes 325mg Take 1 tablet by mouth in the morning. [facility] ferrous sulfate 325 mg (65 mg iron) tablet 2022-06 17:08: 54 Yes 325mg Take 1 tablet by mouth in the morning. [facility] ferrous sulfate 325 mg (65 mg iron) tablet 2022-06 17:08: 54 Yes 325mg Take 1 tablet by mouth in the morning. [facility] ferrous sulfate 325 mg (65 mg iron) tablet 2022-06 17:08: 54 Yes 325mg Take 1 tablet by mouth in the morning. [facility] ferrous sulfate 325 mg (65 mg iron) tablet 2022-06 17:08: 54 Yes 325mg Take 1 tablet by mouth in the morning. [facility] ferrous sulfate 325 mg (65 mg iron) tablet 2022-06 17:08: 54 Yes 325mg Take 1 tablet by mouth in the morning. [facility] ferrous sulfate 325 mg (65 mg iron) tablet 2022-06 17:08: 54 Yes 325mg Take 1 tablet by mouth in the morning. [facility] ferrous sulfate 325 mg (65 mg iron) tablet 2022-06 17:08: 54 Yes 325mg Take 1 tablet by mouth in the morning. [facility] ferrous sulfate 325 mg (65 mg iron) tablet 2022-06 17:08: 54 Yes 325mg Take 1 tablet by mouth in the morning. [facility] ferrous sulfate 325 mg (65 mg iron) tablet 2022-06 17:08: 54 Yes 325mg Take 1 tablet by mouth in the morning. [facility] ferrous sulfate 325 mg (65 mg iron) tablet 2022-06 17:08: 54 Yes 325mg Take 1 tablet by mouth in the morning. [facility] ferrous sulfate 325 mg (65 mg iron) tablet 2022-06 17:08: 54 Yes 325mg Take 1 tablet by mouth in the morning. [facility] ferrous sulfate 325 mg (65 mg iron) tablet 2022-06 17:08: 54 Yes 325mg Take 1 tablet by mouth in the morning. [facility] ferrous sulfate 325 mg (65 mg iron) tablet 2022-06 17:08: 54 Yes 325mg Take 1 tablet by mouth in the morning. [facility] ferrous sulfate 325 mg (65 mg iron) tablet 2022-06 17:08: 54 Yes 325mg Take 1 tablet by mouth in the morning. [facility] ferrous sulfate 325 mg (65 mg iron) tablet 2022-06 17:08: 54 Yes 325mg Take 1 tablet by mouth in the morning. [facility] ferrous sulfate 325 mg (65 mg iron) tablet 2022-06 17:08: 54 Yes 325mg Take 1 tablet by mouth in the morning. [facility] ferrous sulfate 325 mg (65 mg iron) tablet 2022-06 17:08: 54 Yes 325mg Take 1 tablet by mouth in the morning. [facility] ferrous sulfate 325 mg (65 mg iron) tablet 2022-06 17:08: 54 Yes 325mg Take 1 tablet by mouth in the morning. [facility] ferrous sulfate 325 mg (65 mg iron) tablet 2022-06 17:08: 54 Yes 325mg Take 1 tablet by mouth in the morning. [facility] ferrous sulfate 325 mg (65 mg iron) tablet 2022-06 17:08: 54 Yes 325mg Take 1 tablet by mouth in the morning. [facility] ferrous sulfate 325 mg (65 mg iron) tablet 2022-06 17:08: 54 Yes 325mg Take 1 tablet by mouth in the morning. [facility] ferrous sulfate 325 mg (65 mg iron) tablet 2022-06 17:08: 54 Yes 325mg Take 1 tablet by mouth in the morning. [facility] ferrous sulfate 325 mg (65 mg iron) tablet 2022-06 17:08: 54 Yes 325mg Take 1 tablet by mouth in the morning. [facility] ferrous sulfate 325 mg (65 mg iron) tablet 2022-06 17:08: 54 Yes 325mg Take 1 tablet by mouth in the morning. [facility] ferrous sulfate 325 mg (65 mg iron) tablet 2022-06 17:08: 54 Yes 325mg Take 1 tablet by mouth in the morning. [facility] ferrous sulfate 325 mg (65 mg iron) tablet 2022-06 17:08: 54 Yes 325mg Take 1 tablet by mouth in the morning. [facility] ferrous sulfate 325 mg (65 mg iron) tablet 2022-06 17:08: 54 Yes 325mg Take 1 tablet by mouth in the morning. [facility] ferrous sulfate 325 mg (65 mg iron) tablet 2022-06 17:08: 54 Yes 325mg Take 1 tablet by mouth in the morning. [facility] ferrous sulfate 325 mg (65 mg iron) tablet 2022-06 17:08: 54 Yes 325mg Take 1 tablet by mouth in the morning. [facility] ferrous sulfate 325 mg (65 mg iron) tablet 2022-06 17:08: 54 Yes 325mg Take 1 tablet by mouth in the morning. [facility] ferrous sulfate 325 mg (65 mg iron) tablet 2022-06 17:08: 54 Yes 325mg Take 1 tablet by mouth in the morning. [facility] ferrous sulfate 325 mg (65 mg iron) tablet 2022-06 17:08: 54 Yes 325mg Take 1 tablet by mouth in the morning. [facility] ferrous sulfate 325 mg (65 mg iron) tablet 2022-06 17:08: 54 Yes 325mg Take 1 tablet by mouth in the morning. [facility] ferrous sulfate 325 mg (65 mg iron) tablet 2022-06 17:08: 54 Yes 325mg Take 1 tablet by mouth in the morning. [facility] ferrous sulfate 325 mg (65 mg iron) tablet 2022-06 17:08: 54 Yes 325mg Take 1 tablet by mouth in the morning. [facility] ferrous sulfate 325 mg (65 mg iron) tablet 2022-06 17:08: 54 Yes 325mg Take 1 tablet by mouth in the morning. [facility] ferrous sulfate 325 mg (65 mg iron) tablet 2022-06 17:08: 54 Yes 325mg Take 1 tablet by mouth in the morning. [facility] ferrous sulfate 325 mg (65 mg iron) tablet 2022-06 17:08: 54 Yes 325mg Take 1 tablet by mouth in the morning. [facility] ferrous sulfate 325 mg (65 mg iron) tablet 2022-06 17:08: 54 Yes 325mg Take 1 tablet by mouth in the morning. [facility] ferrous sulfate 325 mg (65 mg iron) tablet 2022-06 17:08: 54 Yes 325mg Take 1 tablet by mouth in the morning. [facility] ferrous sulfate 325 mg (65 mg iron) tablet 2022-06 17:08: 54 Yes 325mg Take 1 tablet by mouth in the morning. [facility] ferrous sulfate 325 mg (65 mg iron) tablet 2022-06 17:08: 54 Yes 325mg Take 1 tablet by mouth in the morning. [facility] ferrous sulfate 325 mg (65 mg iron) tablet 2022-06 17:08: 54 Yes 325mg Take 1 tablet by mouth in the morning. [facility] ferrous sulfate 325 mg (65 mg iron) tablet 2022-06 17:08: 54 Yes 325mg Take 1 tablet by mouth in the morning. [facility] ferrous sulfate 325 mg (65 mg iron) tablet 2022-06 17:08: 54 Yes 325mg Take 1 tablet by mouth in the morning. [facility] ferrous sulfate 325 mg (65 mg iron) tablet 2022-06 17:08: 54 Yes 325mg Take 1 tablet by mouth in the morning. [facility] ferrous sulfate 325 mg (65 mg iron) tablet 2022-06 17:08: 54 Yes 325mg Take 1 tablet by mouth in the morning. [facility] ferrous sulfate 325 mg (65 mg iron) tablet 2022-06 17:08: 54 Yes 325mg Take 1 tablet by mouth in the morning. [facility] ferrous sulfate 325 mg (65 mg iron) tablet 2022-06 17:08: 54 Yes 325mg Take 1 tablet by mouth in the morning. [facility] ferrous sulfate 325 mg (65 mg iron) tablet 2022-06 17:08: 54 Yes 325mg Take 1 tablet by mouth in the morning. [facility] ferrous sulfate 325 mg (65 mg iron) tablet 2022-06 17:08: 54 Yes 325mg Take 1 tablet by mouth in the morning. [facility] ferrous sulfate 325 mg (65 mg iron) tablet 2022-06 17:08: 54 Yes 325mg Take 1 tablet by mouth in the morning. [facility] ferrous sulfate 325 mg (65 mg iron) tablet 2022-06 17:08: 54 Yes 325mg Take 1 tablet by mouth in the morning. [facility] ferrous sulfate 325 mg (65 mg iron) tablet 2022-06 17:08: 54 Yes 325mg Take 1 tablet by mouth in the morning. [facility] ferrous sulfate 325 mg (65 mg iron) tablet 2022-06 17:08: 54 Yes 325mg Take 1 tablet by mouth in the morning. [facility] ferrous sulfate 325 mg (65 mg iron) tablet 2022-06 17:08: 54 Yes 325mg Take 1 tablet by mouth in the morning. [facility] SUMAtriptan (IMITREX) tablet 100 mg 2022-06 16:45: 00 05-01 16:41 :00 No 100mg 100 mg, Oral, ONCE, 1 dose, On 05/01/23 at 1045, Routine [facility] amitriptyli ne (ELAVIL) tablet 25 mg 2022-06 03:00: 00 Yes 25mg 25 mg, Oral, QHS, First dose (after last modificati on) on Wed04/30/23 at 2100, Until Discontinu ed, Routine [facility] topiramate (TOPAMAX) tablet 25 mg 2022-06 03:00: 00 05-07 02:59 :00 No 25mg 25 mg, Oral, QHS, 6 doses, First dose (after last modificati on) on Wed04/30/23 at 2100, Last dose on Wed05/05/23 at 2100, Routine
service member approving Restricted medication : LORENA KIRK [facility] topiramate 25 mg tablet 2022-06 00:00: 00 07-31 05:59 :00 No [id number] 25mg Take 1 tablet by mouth in the morning and 1 tablet in the evening. Do all this for 90 days. [facility] proCHLORper azine 5 mg tablet 2022-06 00:00: 00 07-31 05:59 :00 No [id number] 10mg Take 2 tablets by mouth every 6 (six) hours as needed for Nausea and Vomiting (N/V) for up to 90 days. [facility] topiramate 25 mg tablet 2022-06 00:00: 00 07-31 05:59 :00 No [id number] 25mg Take 1 tablet by mouth in the morning and 1 tablet in the evening. Do all this for 90 days. [facility] proCHLORper azine 5 mg tablet 2022-06 00:00: 00 07-31 05:59 :00 No [id number] 10mg Take 2 tablets by mouth every 6 (six) hours as needed for Nausea and Vomiting (N/V) for up to 90 days. [facility] proCHLORper azine 5 mg tablet 2022-06 00:00: 00 07-31 05:59 :00 No [id number] 10mg Take 2 tablets by mouth every 6 (six) hours as needed for Nausea and Vomiting (N/V) for up to 90 days. [facility] proCHLORper azine 5 mg tablet 2022-06 00:00: 00 07-31 05:59 :00 No [id number] 10mg Take 2 tablets by mouth every 6 (six) hours as needed for Nausea and Vomiting (N/V) for up to 90 days. [facility] proCHLORper azine 5 mg tablet 2022-06 00:00: 00 07-31 05:59 :00 No [id number] 10mg Take 2 tablets by mouth every 6 (six) hours as needed for Nausea and Vomiting (N/V) for up to 90 days. [facility] proCHLORper azine 5 mg tablet 2022-06 00:00: 00 07-31 05:59 :00 No [id number] 10mg Take 2 tablets by mouth every 6 (six) hours as needed for Nausea and Vomiting (N/V) for up to 90 days. [facility] proCHLORper azine 5 mg tablet 2022-06 00:00: 00 07-31 05:59 :00 No [id number] 10mg Take 2 tablets by mouth every 6 (six) hours as needed for Nausea and Vomiting (N/V) for up to 90 days. [facility] proCHLORper azine 5 mg tablet 2022-06 00:00: 00 07-31 05:59 :00 No [id number] 10mg Take 2 tablets by mouth every 6 (six) hours as needed for Nausea and Vomiting (N/V) for up to 90 days. [facility] proCHLORper azine 5 mg tablet 2022-06 00:00: 00 07-31 05:59 :00 No [id number] 10mg Take 2 tablets by mouth every 6 (six) hours as needed for Nausea and Vomiting (N/V) for up to 90 days. [facility] proCHLORper azine 5 mg tablet 2022-06 00:00: 00 07-31 05:59 :00 No [id number] 10mg Take 2 tablets by mouth every 6 (six) hours as needed for Nausea and Vomiting (N/V) for up to 90 days. [facility] proCHLORper azine 5 mg tablet 2022-06 00:00: 00 07-31 05:59 :00 No [id number] 10mg Take 2 tablets by mouth every 6 (six) hours as needed for Nausea and Vomiting (N/V) for up to 90 days. [facility] proCHLORper azine 5 mg tablet 2022-06 00:00: 00 07-31 05:59 :00 No [id number] 10mg Take 2 tablets by mouth every 6 (six) hours as needed for Nausea and Vomiting (N/V) for up to 90 days. [facility] proCHLORper azine 5 mg tablet 2022-06 00:00: 00 07-31 05:59 :00 No [id number] 10mg Take 2 tablets by mouth every 6 (six) hours as needed for Nausea and Vomiting (N/V) for up to 90 days. [facility] proCHLORper azine 5 mg tablet 2022-06 00:00: 00 07-31 05:59 :00 No [id number] 10mg Take 2 tablets by mouth every 6 (six) hours as needed for Nausea and Vomiting (N/V) for up to 90 days. [facility] proCHLORper azine 5 mg tablet 2022-06 00:00: 00 07-31 05:59 :00 No [id number] 10mg Take 2 tablets by mouth every 6 (six) hours as needed for Nausea and Vomiting (N/V) for up to 90 days. [facility] proCHLORper azine 5 mg tablet 2022-06 00:00: 00 07-31 05:59 :00 No [id number] 10mg Take 2 tablets by mouth every 6 (six) hours as needed for Nausea and Vomiting (N/V) for up to 90 days. [facility] proCHLORper azine 5 mg tablet 2022-06 00:00: 00 07-31 05:59 :00 No [id number] 10mg Take 2 tablets by mouth every 6 (six) hours as needed for Nausea and Vomiting (N/V) for up to 90 days. [facility] proCHLORper azine 5 mg tablet 2022-06 00:00: 00 07-31 05:59 :00 No [id number] 10mg Take 2 tablets by mouth every 6 (six) hours as needed for Nausea and Vomiting (N/V) for up to 90 days. [facility] proCHLORper azine 5 mg tablet 2022-06 00:00: 00 07-31 05:59 :00 No [id number] 10mg Take 2 tablets by mouth every 6 (six) hours as needed for Nausea and Vomiting (N/V) for up to 90 days. [facility] proCHLORper azine 5 mg tablet 2022-06 00:00: 00 07-31 05:59 :00 No [id number] 10mg Take 2 tablets by mouth every 6 (six) hours as needed for Nausea and Vomiting (N/V) for up to 90 days. [facility] proCHLORper azine 5 mg tablet 2022-06 00:00: 00 07-31 05:59 :00 No [id number] 10mg Take 2 tablets by mouth every 6 (six) hours as needed for Nausea and Vomiting (N/V) for up to 90 days. [facility] proCHLORper azine 5 mg tablet 2022-06 00:00: 00 07-31 05:59 :00 No [id number] 10mg Take 2 tablets by mouth every 6 (six) hours as needed for Nausea and Vomiting (N/V) for up to 90 days. [facility] proCHLORper azine 5 mg tablet 2022-06 00:00: 00 07-31 05:59 :00 No [id number] 10mg Take 2 tablets by mouth every 6 (six) hours as needed for Nausea and Vomiting (N/V) for up to 90 days. [facility] proCHLORper azine 5 mg tablet 2022-06 00:00: 00 07-31 05:59 :00 No [id number] 10mg Take 2 tablets by mouth every 6 (six) hours as needed for Nausea and Vomiting (N/V) for up to 90 days. [facility] proCHLORper azine 5 mg tablet 2022-06 00:00: 00 07-31 05:59 :00 No [id number] 10mg Take 2 tablets by mouth every 6 (six) hours as needed for Nausea and Vomiting (N/V) for up to 90 days. [facility] proCHLORper azine 5 mg tablet 2022-06 00:00: 00 07-31 05:59 :00 No [id number] 10mg Take 2 tablets by mouth every 6 (six) hours as needed for Nausea and Vomiting (N/V) for up to 90 days. [facility] proCHLORper azine 5 mg tablet 2022-06 00:00: 00 07-31 05:59 :00 No [id number] 10mg Take 2 tablets by mouth every 6 (six) hours as needed for Nausea and Vomiting (N/V) for up to 90 days. [facility] proCHLORper azine 5 mg tablet 2022-06 00:00: 00 07-31 05:59 :00 No [id number] 10mg Take 2 tablets by mouth every 6 (six) hours as needed for Nausea and Vomiting (N/V) for up to 90 days. [facility] proCHLORper azine 5 mg tablet 2022-06 00:00: 00 07-31 05:59 :00 No [id number] 10mg Take 2 tablets by mouth every 6 (six) hours as needed for Nausea and Vomiting (N/V) for up to 90 days. [facility] proCHLORper azine 5 mg tablet 2022-06 00:00: 00 07-31 05:59 :00 No [id number] 10mg Take 2 tablets by mouth every 6 (six) hours as needed for Nausea and Vomiting (N/V) for up to 90 days. [facility] proCHLORper azine 5 mg tablet 2022-06 00:00: 00 07-31 05:59 :00 No [id number] 10mg Take 2 tablets by mouth every 6 (six) hours as needed for Nausea and Vomiting (N/V) for up to 90 days. [facility] proCHLORper azine 5 mg tablet 2022-06 00:00: 00 07-31 05:59 :00 No [id number] 10mg Take 2 tablets by mouth every 6 (six) hours as needed for Nausea and Vomiting (N/V) for up to 90 days. [facility] proCHLORper azine 5 mg tablet 2022-06 00:00: 00 07-31 05:59 :00 No [id number] 10mg Take 2 tablets by mouth every 6 (six) hours as needed for Nausea and Vomiting (N/V) for up to 90 days. [facility] proCHLORper azine 5 mg tablet 2022-06 00:00: 00 07-31 05:59 :00 No [id number] 10mg Take 2 tablets by mouth every 6 (six) hours as needed for Nausea and Vomiting (N/V) for up to 90 days. [facility] proCHLORper azine 5 mg tablet 2022-06 00:00: 00 07-31 05:59 :00 No [id number] 10mg Take 2 tablets by mouth every 6 (six) hours as needed for Nausea and Vomiting (N/V) for up to 90 days. [facility] proCHLORper azine 5 mg tablet 2022-06 00:00: 00 07-31 05:59 :00 No [id number] 10mg Take 2 tablets by mouth every 6 (six) hours as needed for Nausea and Vomiting (N/V) for up to 90 days. [facility] proCHLORper azine 5 mg tablet 2022-06 00:00: 00 07-31 05:59 :00 No [id number] 10mg Take 2 tablets by mouth every 6 (six) hours as needed for Nausea and Vomiting (N/V) for up to 90 days. [facility] proCHLORper azine 5 mg tablet 2022-06 00:00: 00 07-31 05:59 :00 No [id number] 10mg Take 2 tablets by mouth every 6 (six) hours as needed for Nausea and Vomiting (N/V) for up to 90 days. [facility] proCHLORper azine 5 mg tablet 2022-06 00:00: 00 07-31 05:59 :00 No [id number] 10mg Take 2 tablets by mouth every 6 (six) hours as needed for Nausea and Vomiting (N/V) for up to 90 days. [facility] proCHLORper azine 5 mg tablet 2022-06 00:00: 00 07-31 05:59 :00 No [id number] 10mg Take 2 tablets by mouth every 6 (six) hours as needed for Nausea and Vomiting (N/V) for up to 90 days. [facility] proCHLORper azine 5 mg tablet 2022-06 00:00: 00 07-31 05:59 :00 No [id number] 10mg Take 2 tablets by mouth every 6 (six) hours as needed for Nausea and Vomiting (N/V) for up to 90 days. [facility] proCHLORper azine 5 mg tablet 2022-06 00:00: 00 07-31 05:59 :00 No [id number] 10mg Take 2 tablets by mouth every 6 (six) hours as needed for Nausea and Vomiting (N/V) for up to 90 days. [facility] proCHLORper azine 5 mg tablet 2022-06 00:00: 00 07-31 05:59 :00 No [id number] 10mg Take 2 tablets by mouth every 6 (six) hours as needed for Nausea and Vomiting (N/V) for up to 90 days. [facility] proCHLORper azine 5 mg tablet 2022-06 00:00: 00 07-31 05:59 :00 No [id number] 10mg Take 2 tablets by mouth every 6 (six) hours as needed for Nausea and Vomiting (N/V) for up to 90 days. [facility] proCHLORper azine 5 mg tablet 2022-06 00:00: 00 07-31 05:59 :00 No [id number] 10mg Take 2 tablets by mouth every 6 (six) hours as needed for Nausea and Vomiting (N/V) for up to 90 days. [facility] proCHLORper azine 5 mg tablet 2022-06 00:00: 00 07-31 05:59 :00 No [id number] 10mg Take 2 tablets by mouth every 6 (six) hours as needed for Nausea and Vomiting (N/V) for up to 90 days. [facility] proCHLORper azine 5 mg tablet 2022-06 00:00: 00 07-31 05:59 :00 No [id number] 10mg Take 2 tablets by mouth every 6 (six) hours as needed for Nausea and Vomiting (N/V) for up to 90 days. [facility] proCHLORper azine 5 mg tablet 2022-06 00:00: 00 07-31 05:59 :00 No [id number] 10mg Take 2 tablets by mouth every 6 (six) hours as needed for Nausea and Vomiting (N/V) for up to 90 days. [facility] proCHLORper azine 5 mg tablet 2022-06 00:00: 00 07-31 05:59 :00 No [id number] 10mg Take 2 tablets by mouth every 6 (six) hours as needed for Nausea and Vomiting (N/V) for up to 90 days. [facility] proCHLORper azine 5 mg tablet 2022-06 00:00: 00 07-31 05:59 :00 No [id number] 10mg Take 2 tablets by mouth every 6 (six) hours as needed for Nausea and Vomiting (N/V) for up to 90 days. [facility] proCHLORper azine 5 mg tablet 2022-06 00:00: 00 07-31 05:59 :00 No [id number] 10mg Take 2 tablets by mouth every 6 (six) hours as needed for Nausea and Vomiting (N/V) for up to 90 days. [facility] proCHLORper azine 5 mg tablet 2022-06 00:00: 00 07-31 05:59 :00 No [id number] 10mg Take 2 tablets by mouth every 6 (six) hours as needed for Nausea and Vomiting (N/V) for up to 90 days. [facility] proCHLORper azine 5 mg tablet 2022-06 00:00: 00 07-31 05:59 :00 No [id number] 10mg Take 2 tablets by mouth every 6 (six) hours as needed for Nausea and Vomiting (N/V) for up to 90 days. [facility] proCHLORper azine 5 mg tablet 2022-06 00:00: 00 07-31 05:59 :00 No [id number] 10mg Take 2 tablets by mouth every 6 (six) hours as needed for Nausea and Vomiting (N/V) for up to 90 days. [facility] topiramate 25 mg tablet 2022-06 00:00: 00 05-06 00:00 :00 No [id number] 25mg Take 1 tablet by mouth in the morning and 1 tablet in the evening. Do all this for 90 days. [facility] topiramate 25 mg tablet 2022-06 00:00: 00 05-06 00:00 :00 No [id number] 25mg Take 1 tablet by mouth in the morning and 1 tablet in the evening. Do all this for 90 days. [facility] topiramate 25 mg tablet 2022-06 00:00: 00 05-06 00:00 :00 No [id number] 25mg Take 1 tablet by mouth in the morning and 1 tablet in the evening. Do all this for 90 days. [facility] topiramate 25 mg tablet 2022-06 00:00: 00 05-06 00:00 :00 No [id number] 25mg Take 1 tablet by mouth in the morning and 1 tablet in the evening. Do all this for 90 days. [facility] enoxaparin (LOVENOX) injection 40 mg 2022-06 23:00: 00 Yes 40mg 40 mg, Subcutaneo us, DAILY AT 1700, First dose on Wed04/30/23 at 1700, Until Discontinu ed, Routine [facility] SUMAtriptan (IMITREX) tablet 100 mg 2022-06 20:30: 00 04-30 20:40 :00 No 100mg 100 mg, Oral, ONCE, 1 dose, On Wed04/30/23 at 1430, Routine [facility] topiramate (TOPAMAX) tablet 25 mg 2022-06 19:45: 00 04-30 20:47 :23 No 25mg 25 mg, Oral, DAILY, 7 doses, First dose on Wed04/30/23 at 1345, Last dose on Wed05/06/23 at 0900, Routine
service member approving Restricted medication : LORENA KIRK [facility] ketorolac (TORADOL) injection 30 mg 2022-06 15:30: 00 04-30 16:07 :00 No 30mg 30 mg, Slow IV Push, ONCE NOW, 1 dose, On Wed04/30/23 at 0930, DOUGLAS [facility] diphenhydrA MINE (BENADRYL) injection 25 mg 2022-06 15:28: 20 Yes 25mg 25 mg, Intravenou s, Q8HPRN, Starting on Wed04/30/23 at 0928, Until Discontinu ed, Routine, Nausea and Vomiting (N/V), Headache [facility] proCHLORper azine (COMPAZINE) 10 mg in NaCl 0.9% (NS) piggyback 2022-06 15:20: 49 Yes 10mg 10 mg, IV Piggyback, at 100 mL/hr Administer over 30 Minutes, Q8HPRN, Starting on Wed04/30/23 at 0920, Until Discontinu ed, Routine, Nausea and Vomiting (N/V) [facility] acetaminoph en (TYLENOL) tablet 650 mg 2022-06 15:15: 23 Yes 650mg 650 mg, Oral, Q6HPRN, Starting on Wed04/30/23 at 0915, Until Discontinu ed, Routine, Pain (scale 1-3), Pain (scale 4-6) [facility] NaCl 0.9% (NS) IV infusion 1,000 mL 2022-06 14:15: 00 Yes 1000mL at 75 mL/hr, IV Infusion, CONTINUOUS , Starting on Wed04/30/23 at 0815, Until Discontinu ed, Routine [facility] acetaminoph en-codeine (TYLENOL #3) 300-30 mg tablet 1 tablet 2022-06 05:02: 17 Yes 1{tbl} 1 tablet, Oral, Q4HPRN, Starting on Wed04/29/23 at 2302, Until Discontinu ed, Routine, Pain (scale 4-6) [facility] gadobenate dimeglumine (MULTIHANCE -20 mL) injection 18.72 mL 2022-06 03:30: 00 04-30 03:30 :00 No [id number] .2mL/kg 18.72 mL (0.2 mL/kg ?93.6 kg), Intravenou s, ONCE, 1 dose, On Wed04/29/23 at 2130, Routine [facility] amitriptyli ne (ELAVIL) tablet 15 mg 2022-06 03:00: 00 04-30 17:22 :47 No 15mg 15 mg, Oral, QHS, First dose on Wed04/29/23 at 2100, Until Discontinu ed, Routine [facility] HYDROcodone -acetaminop hen (NORCO 5) 5-325 mg tablet 1 tablet 2022-06 01:00: 00 04-30 00:13 :00 No 1{tbl} 1 tablet, Oral, ONCE, 1 dose, On Trista 04/29/23 at 1900, Routine [facility] amitriptyli ne 25 mg tablet 2022-06 00:00: 00 Yes [id number] 25mg Take 1 tablet by mouth at bedtime. [facility] SUMAtriptan (IMITREX) 50 mg tablet 2022-06 00:00: 00 Yes [id number] 50mg Take 1 tablet by mouth as needed for Migraine for up to 9 doses. [facility] amitriptyli ne 25 mg tablet 2022-06 00:00: 00 Yes [id number] 25mg Take 1 tablet by mouth at bedtime. [facility] SUMAtriptan (IMITREX) 50 mg tablet 2022-06 00:00: 00 Yes [id number] 50mg Take 1 tablet by mouth as needed for Migraine for up to 9 doses. [facility] amitriptyli ne 25 mg tablet 2022-06 00:00: 00 05-06 00:00 :00 No [id number] 25mg Take 1 tablet by mouth at bedtime. [facility] SUMAtriptan (IMITREX) 50 mg tablet 2022-06 00:00: 00 05-06 00:00 :00 No [id number] 50mg Take 1 tablet by mouth as needed for Migraine for up to 9 doses. [facility] amitriptyli ne 25 mg tablet 2022-06 00:00: 00 05-06 00:00 :00 No [id number] 25mg Take 1 tablet by mouth at bedtime. [facility] SUMAtriptan (IMITREX) 50 mg tablet 2022-06 00:00: 00 05-06 00:00 :00 No [id number] 50mg Take 1 tablet by mouth as needed for Migraine for up to 9 doses. [facility] amitriptyli ne 25 mg tablet 2022-06 00:00: 00 05-06 00:00 :00 No [id number] 25mg Take 1 tablet by mouth at bedtime. [facility] SUMAtriptan (IMITREX) 50 mg tablet 2022-06 00:00: 00 05-06 00:00 :00 No [id number] 50mg Take 1 tablet by mouth as needed for Migraine for up to 9 doses. [facility] amitriptyli ne 25 mg tablet 2022-06 00:00: 00 05-06 00:00 :00 No [id number] 25mg Take 1 tablet by mouth at bedtime. [facility] SUMAtriptan (IMITREX) 50 mg tablet 2022-06 00:00: 00 05-06 00:00 :00 No [id number] 50mg Take 1 tablet by mouth as needed for Migraine for up to 9 doses. [facility] topiramate 25 mg tablet 2022-06 00:00: 00 05-01 00:00 :00 No [id number] Take 1 tablet by mouth at bedtime for 6 days, THEN 1 tablet 2 (two) times daily for 84 days. [facility] magnesium oxide 420 mg Tab 2022-06 00:00: 00 04-29 00:00 :00 No [id number] 400mg Take 400 mg by mouth in the morning. [facility] LORazepam (ATIVAN) tablet 0.5 mg 2022-06 22:30: 00 04-30 02:13 :00 No .5mg 0.5 mg, Oral, ONCE, 1 dose, On Wed04/29/23 at 1630, Routine [facility] ibuprofen (IBU) tablet 600 mg 2022-06 16:13: 00 04-29 22:19 :36 No 600mg 600 mg, Oral, Q6HPRN, Starting on Wed04/29/23 at 1013, Until Wed04/29/23 at 1619, Routine, Headache, 1-10 pain [facility] ibuprofen 600 mg tablet 2022-06 00:00: 00 Yes [id number] 100 600mg Take 1 tablet by mouth every 6 (six) hours as needed for Pain (scale 1-3). [facility] magnesium oxide 400 mg (241.3 mg magnesium) tablet 2022-06 00:00: 00 Yes [id number] 400mg Take 1 tablet by mouth in the morning. [facility] ib[facility]fen 600 mg tablet 2022-06 00:00: 00 Yes [id number] 100 600mg Take 1 tablet by mouth every 6 (six) hours as needed for Pain (scale 1-3). [facility] magnesium oxide 400 mg (241.3 mg magnesium) tablet 2022-06 00:00: 00 Yes [id number] 400mg Take 1 tablet by mouth in the morning. [facility] ibuprofen 600 mg tablet 2022-06 00:00: 00 Yes [id number] 100 600mg Take 1 tablet by mouth every 6 (six) hours as needed for Pain (scale 1-3). [facility] magnesium oxide 400 mg (241.3 mg magnesium) tablet 2022-06 00:00: 00 Yes [id number] 400mg Take 1 tablet by mouth in the morning. [facility] ibuprofen 600 mg tablet 2022-06 00:00: 00 Yes [id number] 100 600mg Take 1 tablet by mouth every 6 (six) hours as needed for Pain (scale 1-3). [facility] magnesium oxide 400 mg (241.3 mg magnesium) tablet 2022-06 00:00: 00 Yes [id number] 400mg Take 1 tablet by mouth in the morning. [facility] ibuprofen 600 mg tablet 2022-06 00:00: 00 Yes [id number] 100 600mg Take 1 tablet by mouth every 6 (six) hours as needed for Pain (scale 1-3). [facility] magnesium oxide 400 mg (241.3 mg magnesium) tablet 2022-06 00:00: 00 Yes [id number] 400mg Take 1 tablet by mouth in the morning. [facility] ib[facility]rofen 600 mg tablet 2022-06 00:00: 00 Yes [id number] 100 600mg Take 1 tablet by mouth every 6 (six) hours as needed for Pain (scale 1-3). [facility] magnesium oxide 400 mg (241.3 mg magnesium) tablet 2022-06 00:00: 00 Yes [id number] 400mg Take 1 tablet by mouth in the morning. [facility] ibuprofen 600 mg tablet 2022-06 00:00: 00 Yes [id number] 100 600mg Take 1 tablet by mouth every 6 (six) hours as needed for Pain (scale 1-3). [facility] magnesium oxide 400 mg (241.3 mg magnesium) tablet 2022-06 00:00: 00 Yes [id number] 400mg Take 1 tablet by mouth in the morning. [facility] ibuprofen 600 mg tablet 2022-06 00:00: 00 Yes [id number] 100 600mg Take 1 tablet by mouth every 6 (six) hours as needed for Pain (scale 1-3). [facility] magnesium oxide 400 mg (241.3 mg magnesium) tablet 2022-06 00:00: 00 Yes [id number] 400mg Take 1 tablet by mouth in the morning. [facility] ibuprofen 600 mg tablet 2022-06 00:00: 00 Yes [id number] 100 600mg Take 1 tablet by mouth every 6 (six) hours as needed for Pain (scale 1-3). [facility] magnesium oxide 400 mg (241.3 mg magnesium) tablet 2022-06 00:00: 00 Yes [id number] 400mg Take 1 tablet by mouth in the morning. [facility] ibuprofen 600 mg tablet 2022-06 00:00: 00 Yes [id number] 100 600mg Take 1 tablet by mouth every 6 (six) hours as needed for Pain (scale 1-3). [facility] magnesium oxide 400 mg (241.3 mg magnesium) tablet 2022-06 00:00: 00 Yes [id number] 400mg Take 1 tablet by mouth in the morning. [facility] ibuprofen 600 mg tablet 2022-06 00:00: 00 Yes [id number] 100 600mg Take 1 tablet by mouth every 6 (six) hours as needed for Pain (scale 1-3). [facility] magnesium oxide 400 mg (241.3 mg magnesium) tablet 2022-06 00:00: 00 Yes [id number] 400mg Take 1 tablet by mouth in the morning. [facility] ibuprofen 600 mg tablet 2022-06 00:00: 00 Yes [id number] 100 600mg Take 1 tablet by mouth every 6 (six) hours as needed for Pain (scale 1-3). [facility] magnesium oxide 400 mg (241.3 mg magnesium) tablet 2022-06 00:00: 00 Yes [id number] 400mg Take 1 tablet by mouth in the morning. [facility] ibuprofen 600 mg tablet 2022-06 00:00: 00 Yes [id number] 100 600mg Take 1 tablet by mouth every 6 (six) hours as needed for Pain (scale 1-3). [facility] magnesium oxide 400 mg (241.3 mg magnesium) tablet 2022-06 00:00: 00 Yes [id number] 400mg Take 1 tablet by mouth in the morning. [facility] ibuprofen 600 mg tablet 2022-06 00:00: 00 Yes [id number] 100 600mg Take 1 tablet by mouth every 6 (six) hours as needed for Pain (scale 1-3). [facility] magnesium oxide 400 mg (241.3 mg magnesium) tablet 2022-06 00:00: 00 Yes [id number] 400mg Take 1 tablet by mouth in the morning. [facility] ibuprofen 600 mg tablet 2022-06 00:00: 00 Yes [id number] 100 600mg Take 1 tablet by mouth every 6 (six) hours as needed for Pain (scale 1-3). [facility] magnesium oxide 400 mg (241.3 mg magnesium) tablet 2022-06 00:00: 00 Yes [id number] 400mg Take 1 tablet by mouth in the morning. [facility] ibuprofen 600 mg tablet 2022-06 00:00: 00 Yes [id number] 100 600mg Take 1 tablet by mouth every 6 (six) hours as needed for Pain (scale 1-3). [facility] magnesium oxide 400 mg (241.3 mg magnesium) tablet 2022-06 00:00: 00 Yes [id number] 400mg Take 1 tablet by mouth in the morning. [facility] ib[facility]rofen 600 mg tablet 2022-06 00:00: 00 Yes [id number] 100 600mg Take 1 tablet by mouth every 6 (six) hours as needed for Pain (scale 1-3). [facility] magnesium oxide 400 mg (241.3 mg magnesium) tablet 2022-06 00:00: 00 Yes [id number] 400mg Take 1 tablet by mouth in the morning. [facility] ib[facility]rofen 600 mg tablet 2022-06 00:00: 00 Yes [id number] 100 600mg Take 1 tablet by mouth every 6 (six) hours as needed for Pain (scale 1-3). [facility] magnesium oxide 400 mg (241.3 mg magnesium) tablet 2022-06 00:00: 00 Yes [id number] 400mg Take 1 tablet by mouth in the morning. [facility] ibuprofen 600 mg tablet 2022-06 00:00: 00 Yes [id number] 100 600mg Take 1 tablet by mouth every 6 (six) hours as needed for Pain (scale 1-3). [facility] magnesium oxide 400 mg (241.3 mg magnesium) tablet 2022-06 00:00: 00 Yes [id number] 400mg Take 1 tablet by mouth in the morning. [facility] ibuprofen 600 mg tablet 2022-06 00:00: 00 Yes [id number] 100 600mg Take 1 tablet by mouth every 6 (six) hours as needed for Pain (scale 1-3). [facility] magnesium oxide 400 mg (241.3 mg magnesium) tablet 2022-06 00:00: 00 Yes [id number] 400mg Take 1 tablet by mouth in the morning. [facility] ib[facility]rofen 600 mg tablet 2022-06 00:00: 00 Yes [id number] 100 600mg Take 1 tablet by mouth every 6 (six) hours as needed for Pain (scale 1-3). [facility] magnesium oxide 400 mg (241.3 mg magnesium) tablet 2022-06 00:00: 00 Yes [id number] 400mg Take 1 tablet by mouth in the morning. [facility] ibuprofen 600 mg tablet 2022-06 00:00: 00 Yes [id number] 100 600mg Take 1 tablet by mouth every 6 (six) hours as needed for Pain (scale 1-3). [facility] magnesium oxide 400 mg (241.3 mg magnesium) tablet 2022-06 00:00: 00 Yes [id number] 400mg Take 1 tablet by mouth in the morning. [facility] ibuprofen 600 mg tablet 2022-06 00:00: 00 Yes [id number] 100 600mg Take 1 tablet by mouth every 6 (six) hours as needed for Pain (scale 1-3). [facility] magnesium oxide 400 mg (241.3 mg magnesium) tablet 2022-06 00:00: 00 Yes [id number] 400mg Take 1 tablet by mouth in the morning. [facility] ibuprofen 600 mg tablet 2022-06 00:00: 00 Yes [id number] 100 600mg Take 1 tablet by mouth every 6 (six) hours as needed for Pain (scale 1-3). [facility] magnesium oxide 400 mg (241.3 mg magnesium) tablet 2022-06 00:00: 00 Yes [id number] 400mg Take 1 tablet by mouth in the morning. [facility] ibuprofen 600 mg tablet 2022-06 00:00: 00 Yes [id number] 100 600mg Take 1 tablet by mouth every 6 (six) hours as needed for Pain (scale 1-3). [facility] magnesium oxide 400 mg (241.3 mg magnesium) tablet 2022-06 00:00: 00 Yes [id number] 400mg Take 1 tablet by mouth in the morning. [facility] ibuprofen 600 mg tablet 2022-06 00:00: 00 Yes [id number] 100 600mg Take 1 tablet by mouth every 6 (six) hours as needed for Pain (scale 1-3). [facility] magnesium oxide 400 mg (241.3 mg magnesium) tablet 2022-06 00:00: 00 Yes [id number] 400mg Take 1 tablet by mouth in the morning. [facility] ib[facility]rofen 600 mg tablet 2022-06 00:00: 00 Yes [id number] 100 600mg Take 1 tablet by mouth every 6 (six) hours as needed for Pain (scale 1-3). [facility] magnesium oxide 400 mg (241.3 mg magnesium) tablet 2022-06 00:00: 00 Yes [id number] 400mg Take 1 tablet by mouth in the morning. [facility] ibuprofen 600 mg tablet 2022-06 00:00: 00 Yes [id number] 100 600mg Take 1 tablet by mouth every 6 (six) hours as needed for Pain (scale 1-3). [facility] magnesium oxide 400 mg (241.3 mg magnesium) tablet 2022-06 00:00: 00 Yes [id number] 400mg Take 1 tablet by mouth in the morning. [facility] ibuprofen 600 mg tablet 2022-06 00:00: 00 Yes [id number] 100 600mg Take 1 tablet by mouth every 6 (six) hours as needed for Pain (scale 1-3). [facility] magnesium oxide 400 mg (241.3 mg magnesium) tablet 2022-06 00:00: 00 Yes [id number] 400mg Take 1 tablet by mouth in the morning. [facility] ibuprofen 600 mg tablet 2022-06 00:00: 00 Yes [id number] 100 600mg Take 1 tablet by mouth every 6 (six) hours as needed for Pain (scale 1-3). [facility] magnesium oxide 400 mg (241.3 mg magnesium) tablet 2022-06 00:00: 00 Yes [id number] 400mg Take 1 tablet by mouth in the morning. [facility] ibuprofen 600 mg tablet 2022-06 00:00: 00 Yes [id number] 100 600mg Take 1 tablet by mouth every 6 (six) hours as needed for Pain (scale 1-3). [facility] magnesium oxide 400 mg (241.3 mg magnesium) tablet 2022-06 00:00: 00 Yes [id number] 400mg Take 1 tablet by mouth in the morning. [facility] ib[facility]rofen 600 mg tablet 2022-06 00:00: 00 Yes [id number] 100 600mg Take 1 tablet by mouth every 6 (six) hours as needed for Pain (scale 1-3). [facility] magnesium oxide 400 mg (241.3 mg magnesium) tablet 2022-06 00:00: 00 Yes [id number] 400mg Take 1 tablet by mouth in the morning. [facility] ibuprofen 600 mg tablet 2022-06 00:00: 00 Yes [id number] 100 600mg Take 1 tablet by mouth every 6 (six) hours as needed for Pain (scale 1-3). [facility] magnesium oxide 400 mg (241.3 mg magnesium) tablet 2022-06 00:00: 00 Yes [id number] 400mg Take 1 tablet by mouth in the morning. [facility] ibuprofen 600 mg tablet 2022-06 00:00: 00 Yes [id number] 100 600mg Take 1 tablet by mouth every 6 (six) hours as needed for Pain (scale 1-3). [facility] magnesium oxide 400 mg (241.3 mg magnesium) tablet 2022-06 00:00: 00 Yes [id number] 400mg Take 1 tablet by mouth in the morning. [facility] ibuprofen 600 mg tablet 2022-06 00:00: 00 Yes [id number] 100 600mg Take 1 tablet by mouth every 6 (six) hours as needed for Pain (scale 1-3). [facility] magnesium oxide 400 mg (241.3 mg magnesium) tablet 2022-06 00:00: 00 Yes [id number] 400mg Take 1 tablet by mouth in the morning. [facility] ibuprofen 600 mg tablet 2022-06 00:00: 00 Yes [id number] 100 600mg Take 1 tablet by mouth every 6 (six) hours as needed for Pain (scale 1-3). [facility] magnesium oxide 400 mg (241.3 mg magnesium) tablet 2022-06 00:00: 00 Yes [id number] 400mg Take 1 tablet by mouth in the morning. [facility] ibuprofen 600 mg tablet 2022-06 00:00: 00 Yes [id number] 100 600mg Take 1 tablet by mouth every 6 (six) hours as needed for Pain (scale 1-3). [facility] magnesium oxide 400 mg (241.3 mg magnesium) tablet 2022-06 00:00: 00 Yes [id number] 400mg Take 1 tablet by mouth in the morning. [facility] ibuprofen 600 mg tablet 2022-06 00:00: 00 Yes [id number] 100 600mg Take 1 tablet by mouth every 6 (six) hours as needed for Pain (scale 1-3). [facility] magnesium oxide 400 mg (241.3 mg magnesium) tablet 2022-06 00:00: 00 Yes [id number] 400mg Take 1 tablet by mouth in the morning. [facility] ibuprofen 600 mg tablet 2022-06 00:00: 00 Yes [id number] 100 600mg Take 1 tablet by mouth every 6 (six) hours as needed for Pain (scale 1-3). [facility] magnesium oxide 400 mg (241.3 mg magnesium) tablet 2022-06 00:00: 00 Yes [id number] 400mg Take 1 tablet by mouth in the morning. [facility] ibuprofen 600 mg tablet 2022-06 00:00: 00 Yes [id number] 100 600mg Take 1 tablet by mouth every 6 (six) hours as needed for Pain (scale 1-3). [facility] magnesium oxide 400 mg (241.3 mg magnesium) tablet 2022-06 00:00: 00 Yes [id number] 400mg Take 1 tablet by mouth in the morning. [facility] ibuprofen 600 mg tablet 2022-06 00:00: 00 Yes [id number] 100 600mg Take 1 tablet by mouth every 6 (six) hours as needed for Pain (scale 1-3). [facility] magnesium oxide 400 mg (241.3 mg magnesium) tablet 2022-06 00:00: 00 Yes [id number] 400mg Take 1 tablet by mouth in the morning. [facility] ibuprofen 600 mg tablet 2022-06 00:00: 00 Yes [id number] 100 600mg Take 1 tablet by mouth every 6 (six) hours as needed for Pain (scale 1-3). [facility] magnesium oxide 400 mg (241.3 mg magnesium) tablet 2022-06 00:00: 00 Yes [id number] 400mg Take 1 tablet by mouth in the morning. [facility] ibuprofen 600 mg tablet 2022-06 00:00: 00 Yes [id number] 100 600mg Take 1 tablet by mouth every 6 (six) hours as needed for Pain (scale 1-3). [facility] magnesium oxide 400 mg (241.3 mg magnesium) tablet 2022-06 00:00: 00 Yes [id number] 400mg Take 1 tablet by mouth in the morning. [facility] ibuprofen 600 mg tablet 2022-06 00:00: 00 Yes [id number] 100 600mg Take 1 tablet by mouth every 6 (six) hours as needed for Pain (scale 1-3). [facility] magnesium oxide 400 mg (241.3 mg magnesium) tablet 2022-06 00:00: 00 Yes [id number] 400mg Take 1 tablet by mouth in the morning. [facility] ibuprofen 600 mg tablet 2022-06 00:00: 00 Yes [id number] 100 600mg Take 1 tablet by mouth every 6 (six) hours as needed for Pain (scale 1-3). [facility] magnesium oxide 400 mg (241.3 mg magnesium) tablet 2022-06 00:00: 00 Yes [id number] 400mg Take 1 tablet by mouth in the morning. [facility] ibuprofen 600 mg tablet 2022-06 00:00: 00 Yes [id number] 100 600mg Take 1 tablet by mouth every 6 (six) hours as needed for Pain (scale 1-3). [facility] magnesium oxide 400 mg (241.3 mg magnesium) tablet 2022-06 00:00: 00 Yes [id number] 400mg Take 1 tablet by mouth in the morning. [facility] ib[facility]fen 600 mg tablet 2022-06 00:00: 00 Yes [id number] 100 600mg Take 1 tablet by mouth every 6 (six) hours as needed for Pain (scale 1-3). [facility] [facility] 400 mg (241.3 mg magnesium) tablet 2022-06 00:00: 00 Yes [id number] 400mg Take 1 tablet by mouth in the morning. [facility]fen 600 mg tablet 2022-06 00:00: 00 Yes [id number] 100 600mg Take 1 tablet by mouth every 6 (six) hours as needed for Pain (scale 1-3). [facility] magnesium oxide 400 mg (241.3 mg magnesium) tablet 2022-06 00:00: 00 Yes [id number] 400mg Take 1 tablet by mouth in the morning. [facility] ibuprofen 600 mg tablet 2022-06 00:00: 00 Yes [id number] 100 600mg Take 1 tablet by mouth every 6 (six) hours as needed for Pain (scale 1-3). [facility] magnesium oxide 400 mg (241.3 mg magnesium) tablet 2022-06 00:00: 00 Yes [id number] 400mg Take 1 tablet by mouth in the morning. [facility] ibuprofen 600 mg tablet 2022-06 00:00: 00 Yes [id number] 100 600mg Take 1 tablet by mouth every 6 (six) hours as needed for Pain (scale 1-3). [facility] magnesium oxide 400 mg (241.3 mg magnesium) tablet 2022-06 00:00: 00 Yes [id number] 400mg Take 1 tablet by mouth in the morning. [facility] ibuprofen 600 mg tablet 2022-06 00:00: 00 Yes [id number] 100 600mg Take 1 tablet by mouth every 6 (six) hours as needed for Pain (scale 1-3). [facility] magnesium oxide 400 mg (241.3 mg magnesium) tablet 2022-06 00:00: 00 Yes [id number] 400mg Take 1 tablet by mouth in the morning. [facility] ibuprofen 600 mg tablet 2022-06 00:00: 00 Yes [id number] 100 600mg Take 1 tablet by mouth every 6 (six) hours as needed for Pain (scale 1-3). [facility] magnesium oxide 400 mg (241.3 mg magnesium) tablet 2022-06 00:00: 00 Yes [id number] 400mg Take 1 tablet by mouth in the morning. [facility] ibuprofen 600 mg tablet 2022-06 00:00: 00 Yes [id number] 100 600mg Take 1 tablet by mouth every 6 (six) hours as needed for Pain (scale 1-3). [facility] magnesium oxide 400 mg (241.3 mg magnesium) tablet 2022-06 00:00: 00 Yes [id number] 400mg Take 1 tablet by mouth in the morning. [facility] ibuprofen 600 mg tablet 2022-06 00:00: 00 Yes [id number] 100 600mg Take 1 tablet by mouth every 6 (six) hours as needed for Pain (scale 1-3). [facility] magnesium oxide 400 mg (241.3 mg magnesium) tablet 2022-06 00:00: 00 Yes [id number] 400mg Take 1 tablet by mouth in the morning. [facility] ibuprofen 600 mg tablet 2022-06 00:00: 00 Yes [id number] 100 600mg Take 1 tablet by mouth every 6 (six) hours as needed for Pain (scale 1-3). [facility] magnesium oxide 400 mg (241.3 mg magnesium) tablet 2022-06 00:00: 00 Yes [id number] 400mg Take 1 tablet by mouth in the morning. [facility] ibuprofen 600 mg tablet 2022-06 00:00: 00 Yes [id number] 100 600mg Take 1 tablet by mouth every 6 (six) hours as needed for Pain (scale 1-3). [facility] magnesium oxide 400 mg (241.3 mg magnesium) tablet 2022-06 00:00: 00 Yes [id number] 400mg Take 1 tablet by mouth in the morning[facility] mg tablet 2022-06 00:00: 00 Yes [id number] 100 600mg Take 1 tablet by mouth every 6 (six) hours as needed for Pain (scale 1-3). [facility] oxide 400 mg (241.3 mg magnesium) tablet 2022-06 00:00: 00 Yes [id number] 400mg Take 1 tablet by mouth in the morning. [facility] ib[facility]rofen 600 mg tablet 2022-06 00:00: 00 Yes [id number] 100 600mg Take 1 tablet by mouth every 6 (six) hours as needed for Pain (scale 1-3). [facility] magnesium oxide 400 mg (241.3 mg magnesium) tablet 2022-06 00:00: 00 Yes [id number] 400mg Take 1 tablet by mouth in the morning. [facility] ibuprofen 600 mg tablet 2022-06 00:00: 00 Yes [id number] 100 600mg Take 1 tablet by mouth every 6 (six) hours as needed for Pain (scale 1-3). [facility] magnesium oxide 400 mg (241.3 mg magnesium) tablet 2022-06 00:00: 00 Yes [id number] 400mg Take 1 tablet by mouth in the morning. [facility] ibuprofen 600 mg tablet 2022-06 00:00: 00 Yes [id number] 100 600mg Take 1 tablet by mouth every 6 (six) hours as needed for Pain (scale 1-3). [facility] magnesium oxide 400 mg (241.3 mg magnesium) tablet 2022-06 00:00: 00 Yes [id number] 400mg Take 1 tablet by mouth in the morning. [facility] ibuprofen 600 mg tablet 2022-06 00:00: 00 Yes [id number] 100 600mg Take 1 tablet by mouth every 6 (six) hours as needed for Pain (scale 1-3). [facility] magnesium oxide 400 mg (241.3 mg magnesium) tablet 2022-06 00:00: 00 Yes [id number] 400mg Take 1 tablet by mouth in the morning. [facility] ibuprofen 600 mg tablet 2022-06 00:00: 00 Yes [id number] 100 600mg Take 1 tablet by mouth every 6 (six) hours as needed for Pain (scale 1-3). [facility] oxide 400 mg (241.3 mg magnesium) tablet 2022-06 00:00: 00 Yes [id number] 400mg Take 1 tablet by mouth in the morning. [facility] ib[facility]rofen 600 mg tablet 2022-06 00:00: 00 Yes [id number] 100 600mg Take 1 tablet by mouth every 6 (six) hours as needed for Pain (scale 1-3). [facility] magnesium oxide 400 mg (241.3 mg magnesium) tablet 2022-06 00:00: 00 Yes [id number] 400mg Take 1 tablet by mouth in the morning. [facility] ibuprofen 600 mg tablet 2022-06 00:00: 00 Yes [id number] 100 600mg Take 1 tablet by mouth every 6 (six) hours as needed for Pain (scale 1-3). [facility] magnesium oxide 400 mg (241.3 mg magnesium) tablet 2022-06 00:00: 00 Yes [id number] 400mg Take 1 tablet by mouth in the morning. [facility] ibuprofen 600 mg tablet 2022-06 00:00: 00 Yes [id number] 100 600mg Take 1 tablet by mouth every 6 (six) hours as needed for Pain (scale 1-3). [facility] magnesium oxide 400 mg (241.3 mg magnesium) tablet 2022-06 00:00: 00 Yes [id number] 400mg Take 1 tablet by mouth in the morning. [facility] ibuprofen 600 mg tablet 2022-06 00:00: 00 Yes [id number] 100 600mg Take 1 tablet by mouth every 6 (six) hours as needed for Pain (scale 1-3). [facility] magnesium oxide 400 mg (241.3 mg magnesium) tablet 2022-06 00:00: 00 Yes [id number] 400mg Take 1 tablet by mouth in the morning. [facility] ibuprofen 600 mg tablet 2022-06 00:00: 00 Yes [id number] 100 600mg Take 1 tablet by mouth every 6 (six) hours as needed for Pain (scale 1-3). [facility] magnesium oxide 400 mg (241.3 mg magnesium) tablet 2022-06 00:00: 00 Yes [id number] 400mg Take 1 tablet by mouth in the morning. [facility] ibuprofen 600 mg tablet 2022-06 00:00: 00 Yes [id number] 100 600mg Take 1 tablet by mouth every 6 (six) hours as needed for Pain (scale 1-3). [facility] magnesium oxide 400 mg (241.3 mg magnesium) tablet 2022-06 00:00: 00 Yes [id number] 400mg Take 1 tablet by mouth in the morning. [facility] ibuprofen 600 mg tablet 2022-06 00:00: 00 Yes [id number] 100 600mg Take 1 tablet by mouth every 6 (six) hours as needed for Pain (scale 1-3). [facility] magnesium oxide 400 mg (241.3 mg magnesium) tablet 2022-06 00:00: 00 Yes [id number] 400mg Take 1 tablet by mouth in the morning. [facility] ibuprofen 600 mg tablet 2022-06 00:00: 00 Yes [id number] 100 600mg Take 1 tablet by mouth every 6 (six) hours as needed for Pain (scale 1-3). [facility] magnesium oxide 400 mg (241.3 mg magnesium) tablet 2022-06 00:00: 00 Yes [id number] 400mg Take 1 tablet by mouth in the morning. [facility] ibuprofen 600 mg tablet 2022-06 00:00: 00 Yes [id number] 100 600mg Take 1 tablet by mouth every 6 (six) hours as needed for Pain (scale 1-3). [facility] magnesium oxide 400 mg (241.3 mg magnesium) tablet 2022-06 00:00: 00 Yes [id number] 400mg Take 1 tablet by mouth in the morning. [facility] ibuprofen 600 mg tablet 2022-06 00:00: 00 Yes [id number] 100 600mg Take 1 tablet by mouth every 6 (six) hours as needed for Pain (scale 1-3). [facility] magnesium oxide 400 mg (241.3 mg magnesium) tablet 2022-06 00:00: 00 Yes [id number] 400mg Take 1 tablet by mouth in the morning. [facility] amitriptyli ne 10 mg tablet 2022-06 00:00: 00 04-30 00:00 :00 No [id number] 15mg Take 1.5 tablets by mouth at bedtime. [facility] amitriptyli ne 10 mg tablet 2022-06 00:00: 00 04-29 00:00 :00 No [id number] 10mg Take 1 tablet by mouth at bedtime. [facility] benzocaine- menthoL (CEPACOL SORE THROAT (RHONDA-MEN)) lozenge 1 Lozenge 2022-06 18:38: 10 Yes 1{lozen ge} 1 Lozenge, Oral, Q4HPRN, Starting on Wed04/28/23 at 1238, Until Discontinu ed, Routine, Sore throat [facility] ondansetron (ZOFRAN (PF)) injection 4 mg 2022-06 16:25: 19 Yes 4mg 4 mg, Slow IV Push, Q6HPRN, Nausea and Vomiting (N/V), Starting on Wed04/28/23 at 1025
Do ses of ondansetro n 16 mg and above need to be administer ed via IV piggyback. For Dose >=24mg ECG monitoring is advisable.
[facility] ketorolac (TORADOL) injection 30 mg 2022-06 00:30: 00 04-28 15:23 :00 No 30mg 30 mg, Slow IV Push, Q8H ABX, 3 doses, First dose on Wed04/27/23 at 1830, Last dose on Wed04/28/23 at 1030, Routine [facility] magnesium sulfate in water 2 gram/50 mL (4 %) infusion 2 g 2022-06 00:15: 00 04-28 01:11 :00 No 2g 2 g, IV Piggyback, Administer over 60 Minutes, ONCE, 1 dose, On Wed04/27/23 at 1815, Routine [facility] ondansetron (ZOFRAN (PF)) injection 4 mg 2022-06 16:30: 00 04-27 15:46 :00 No 4mg 4 mg, Slow IV Push, ONCE, On Wed04/27/23 at 1030, For 1 dose
Do [facility] of ondansetro n 16 mg and above need to be administer ed via IV piggyback. For Dose >=24mg ECG monitoring is advisable.
[facility] amitriptyli ne (ELAVIL) tablet 10 mg 2022-06 03:00: 00 04-29 22:27 :33 No 10mg 10 mg, Oral, QHS, First dose on Wed04/26/23 at 2100, Until Discontinu ed, Routine [facility] magnesium sulfate in water 4 gram/50 mL (8 %) IV Piggyback 4 g 2022-06 23:30: 00 04-27 06:00 :00 No 4g 4 g, IV Piggyback, at 25 mL/hr Administer over 120 Minutes, ONCE, 1 dose, On Wed04/26/23 at 1730, Routine [facility] acetaminoph en (TYLENOL) tablet 500 mg 2022-06 23:15: 55 04-29 22:27 :33 No 500mg 500 mg, Oral, Q6HPRN, Starting on Wed04/26/23 at 1715, Until Trista 04/29/23 at 1627, Routine, Pain (scale 4-6) [facility] ibuprofen (IBU) tablet 600 mg 2022-06 23:15: 43 04-27 23:24 :39 No 600mg 600 mg, Oral, Q6HPRN, Starting on Wed04/26/23 at 1715, Until Wed04/27/23 at 1724, Routine, Pain (scale 1-3) [facility] valproate (DEPACON) 250 mg in D5W piggyback 2022-06 21:30: 00 04-27 19:59 :00 No 250mg 250 mg, IV Piggyback, TID, 3 doses, First dose on Wed04/26/23 at 1530, Last dose on Wed04/27/23 at 0800, Administer over 60 Minutes, 100 mL [facility] magnesium oxide (MAG-OX 400) tablet 400 mg 2022-06 20:45: 00 04-29 22:27 :33 No 400mg 400 mg, Oral, DAILY, First dose on Wed04/26/23 at 1445, Until Discontinu ed, Routine [facility] diphenhydrA MINE (BENADRYL) injection 25 mg 2022-06 20:00: 00 04-26 19:18 :00 No 25mg 25 mg, Intravenou s, ONCE, 1 dose, On Wed04/26/23 at 1400, Routine [facility] ibuprofen (IBU) tablet 800 mg 2022-06 19:15: 00 04-26 18:30 :00 No 800mg 800 mg, Oral, ONCE, 1 dose, On Wed04/26/23 at 1315, Routine [facility] HYDROcodone -acetaminop hen (NORCO 5) 5-325 mg tablet 1 tablet 2022-06 14:30: 00 04-26 16:00 :00 No 1{tbl} 1 tablet, Oral, ONCE, 1 dose, On Wed04/26/23 at 0830, Routine, PACU [facility] proMETHazin e (PHENERGAN) 12.5 mg in NS 50 mL IV piggyback (CNR) 2022-06 14:19: 50 04-26 20:10 :00 No 12.5mg 12.5 mg, IV Piggyback, at 200 mL/hr Administer over 15 Minutes, PRN, 1 dose, Starting on Wed04/26/23 at 0819, Until Wed04/26/23 at 1410, Routine, Nausea and Vomiting (N/V), [facility] ferrous sulfate 325 mg (65 mg iron) tablet 2022-06 08:55: 33 Yes 325mg Take 1 tablet by mouth in the morning. [facility] hydroxychlo roquine 200 mg tablet 2022-06 00:00: 00 Yes [id number] 200mg Take 1 tablet by mouth in the morning. [facility] hydroxychlo roquine 200 mg tablet 2022-06 00:00: 00 Yes [id number] 200mg Take 1 tablet by mouth in the morning. [facility] hydroxychlo roquine 200 mg tablet 2022-06 00:00: 00 05-04 00:00 :00 No [id number] 200mg Take 1 tablet by mouth in the morning. [facility] ferrous sulfate 325 mg (65 mg iron) tablet 2022-06 16:56: 08 Yes 325mg Take 1 tablet by mouth in the morning. [facility] ferrous sulfate 325 mg (65 mg iron) tablet 2022-06 16:56: 08 Yes 325mg Take 1 tablet by mouth in the morning. [facility] ondansetron 4 mg disintegrat ing tablet 2022-06 00:00: 00 Yes [id number] 4mg Take 1 tablet by mouth every 8 (eight) hours as needed for Nausea and Vomiting (N/V). [facility] ondansetron 4 mg disintegrat ing tablet 2022-06 00:00: 00 Yes [id number] 4mg Take 1 tablet by mouth every 8 (eight) hours as needed for Nausea and Vomiting (N/V). [facility] ondansetron 4 mg disintegrat ing tablet 2022-06 0 00:00: 00 Yes [id number] 4mg Take 1 tablet by mouth every 8 (eight) hours as needed for Nausea and Vomiting (N/V). [facility] ondansetron 4 mg disintegrat ing tablet 2022-06 0 00:00: 00 Yes [id number] 4mg Take 1 tablet by mouth every 8 (eight) hours as needed for Nausea and Vomiting (N/V). [facility] ondansetron 4 mg disintegrat ing tablet 2022-06 0- 00:00: 00 Yes [id number] 4mg Take 1 tablet by mouth every 8 (eight) hours as needed for Nausea and Vomiting (N/V). [facility] ondansetron 4 mg disintegrat ing tablet 2022-06 0 00:00: 00 Yes [id number] 4mg Take 1 tablet by mouth every 8 (eight) hours as needed for Nausea and Vomiting (N/V). [facility] ondansetron 4 mg disintegrat ing tablet 2022-06 0 00:00: 00 Yes [id number] 4mg Take 1 tablet by mouth every 8 (eight) hours as needed for Nausea and Vomiting (N/V). [facility] ondansetron 4 mg disintegrat ing tablet 2022-06 0 00:00: 00 Yes [id number] 4mg Take 1 tablet by mouth every 8 (eight) hours as needed for Nausea and Vomiting (N/V). [facility] ondansetron 4 mg disintegrat ing tablet 2022-06 0 00:00: 00 Yes [id number] 4mg Take 1 tablet by mouth every 8 (eight) hours as needed for Nausea and Vomiting (N/V). [facility] ondansetron 4 mg disintegrat ing tablet 2022-06 0 00:00: 00 Yes [id number] 4mg Take 1 tablet by mouth every 8 (eight) hours as needed for Nausea and Vomiting (N/V). [facility] ondansetron 4 mg disintegrat ing tablet 2022-06 0 00:00: 00 Yes [id number] 4mg Take 1 tablet by mouth every 8 (eight) hours as needed for Nausea and Vomiting (N/V). [facility] ondansetron 4 mg disintegrat ing tablet 2022-06 0- 00:00: 00 Yes [id number] 4mg Take 1 tablet by mouth every 8 (eight) hours as needed for Nausea and Vomiting (N/V). [facility] ondansetron 4 mg disintegrat ing tablet 2022-06 0 00:00: 00 Yes [id number] 4mg Take 1 tablet by mouth every 8 (eight) hours as needed for Nausea and Vomiting (N/V). [facility] ondansetron 4 mg disintegrat ing tablet 2022-06 0- 00:00: 00 Yes [id number] 4mg Take 1 tablet by mouth every 8 (eight) hours as needed for Nausea and Vomiting (N/V). [facility] ondansetron 4 mg disintegrat ing tablet 2022-06 0- 00:00: 00 Yes [id number] 4mg Take 1 tablet by mouth every 8 (eight) hours as needed for Nausea and Vomiting (N/V). [facility] ondansetron 4 mg disintegrat ing tablet 2022-06 0- 00:00: 00 Yes [id number] 4mg Take 1 tablet by mouth every 8 (eight) hours as needed for Nausea and Vomiting (N/V). [facility] ondansetron 4 mg disintegrat ing tablet 2022-06 0 00:00: 00 Yes [id number] 4mg Take 1 tablet by mouth every 8 (eight) hours as needed for Nausea and Vomiting (N/V). [facility] ondansetron 4 mg disintegrat ing tablet 2022-06 0 00:00: 00 Yes [id number] 4mg Take 1 tablet by mouth every 8 (eight) hours as needed for Nausea and Vomiting (N/V). [facility] ondansetron 4 mg disintegrat ing tablet 2022-06 0- 00:00: 00 Yes [id number] 4mg Take 1 tablet by mouth every 8 (eight) hours as needed for Nausea and Vomiting (N/V). [facility] ondansetron 4 mg disintegrat ing tablet 2022-06 0- 00:00: 00 Yes [id number] 4mg Take 1 tablet by mouth every 8 (eight) hours as needed for Nausea and Vomiting (N/V). [facility] ondansetron 4 mg disintegrat ing tablet 2022-06 0- 00:00: 00 Yes [id number] 4mg Take 1 tablet by mouth every 8 (eight) hours as needed for Nausea and Vomiting (N/V). [facility] ondansetron 4 mg disintegrat ing tablet 2022-06 0 00:00: 00 Yes [id number] 4mg Take 1 tablet by mouth every 8 (eight) hours as needed for Nausea and Vomiting (N/V). [facility] ondansetron 4 mg disintegrat ing tablet 2022-06 0 00:00: 00 Yes [id number] 4mg Take 1 tablet by mouth every 8 (eight) hours as needed for Nausea and Vomiting (N/V). [facility] ondansetron 4 mg disintegrat ing tablet 2022-06 0 00:00: 00 Yes [id number] 4mg Take 1 tablet by mouth every 8 (eight) hours as needed for Nausea and Vomiting (N/V). [facility] ondansetron 4 mg disintegrat ing tablet 2022-06 0 00:00: 00 Yes [id number] 4mg Take 1 tablet by mouth every 8 (eight) hours as needed for Nausea and Vomiting (N/V). [facility] ondansetron 4 mg disintegrat ing tablet 2022-06 0 00:00: 00 Yes [id number] 4mg Take 1 tablet by mouth every 8 (eight) hours as needed for Nausea and Vomiting (N/V). [facility] ondansetron 4 mg disintegrat ing tablet 2022-06 0 00:00: 00 Yes [id number] 4mg Take 1 tablet by mouth every 8 (eight) hours as needed for Nausea and Vomiting (N/V). [facility] ondansetron 4 mg disintegrat ing tablet 2022-06 0 00:00: 00 Yes [id number] 4mg Take 1 tablet by mouth every 8 (eight) hours as needed for Nausea and Vomiting (N/V). [facility] ondansetron 4 mg disintegrat ing tablet 2022-06 0- 00:00: 00 Yes [id number] 4mg Take 1 tablet by mouth every 8 (eight) hours as needed for Nausea and Vomiting (N/V). [facility] ondansetron 4 mg disintegrat ing tablet 2022-06 0 00:00: 00 Yes [id number] 4mg Take 1 tablet by mouth every 8 (eight) hours as needed for Nausea and Vomiting (N/V). [facility] ondansetron 4 mg disintegrat ing tablet 2022-06 0 00:00: 00 Yes [id number] 4mg Take 1 tablet by mouth every 8 (eight) hours as needed for Nausea and Vomiting (N/V). [facility] ondansetron 4 mg disintegrat ing tablet 2022-06 0 00:00: 00 Yes [id number] 4mg Take 1 tablet by mouth every 8 (eight) hours as needed for Nausea and Vomiting (N/V). [facility] ondansetron 4 mg disintegrat ing tablet 2022-06 00:00: 00 Yes [id number] 4mg Take 1 tablet by mouth every 8 (eight) hours as needed for Nausea and Vomiting (N/V). [facility] ondansetron 4 mg disintegrat ing tablet 2022-06 00:00: 00 Yes [id number] 4mg Take 1 tablet by mouth every 8 (eight) hours as needed for Nausea and Vomiting (N/V). [facility] ondansetron 4 mg disintegrat ing tablet 2022-06 00:00: 00 Yes [id number] 4mg Take 1 tablet by mouth every 8 (eight) hours as needed for Nausea and Vomiting (N/V). [facility] ondansetron 4 mg disintegrat ing tablet 2022-06 0 00:00: 00 Yes [id number] 4mg Take 1 tablet by mouth every 8 (eight) hours as needed for Nausea and Vomiting (N/V). [facility] ondansetron 4 mg disintegrat ing tablet 2022-06 0 00:00: 00 Yes [id number] 4mg Take 1 tablet by mouth every 8 (eight) hours as needed for Nausea and Vomiting (N/V). [facility] ondansetron 4 mg disintegrat ing tablet 2022-06 0 00:00: 00 Yes [id number] 4mg Take 1 tablet by mouth every 8 (eight) hours as needed for Nausea and Vomiting (N/V). [facility] ondansetron 4 mg disintegrat ing tablet 2022-06 0- 00:00: 00 Yes [id number] 4mg Take 1 tablet by mouth every 8 (eight) hours as needed for Nausea and Vomiting (N/V). [facility] ondansetron 4 mg disintegrat ing tablet 2022-06 0 00:00: 00 Yes [id number] 4mg Take 1 tablet by mouth every 8 (eight) hours as needed for Nausea and Vomiting (N/V). [facility] ondansetron 4 mg disintegrat ing tablet 2022-06 0 00:00: 00 Yes [id number] 4mg Take 1 tablet by mouth every 8 (eight) hours as needed for Nausea and Vomiting (N/V). [facility] ondansetron 4 mg disintegrat ing tablet 2022-06 0 00:00: 00 Yes [id number] 4mg Take 1 tablet by mouth every 8 (eight) hours as needed for Nausea and Vomiting (N/V). [facility] ondansetron 4 mg disintegrat ing tablet 2022-06 0 00:00: 00 Yes [id number] 4mg Take 1 tablet by mouth every 8 (eight) hours as needed for Nausea and Vomiting (N/V). [facility] ondansetron 4 mg disintegrat ing tablet 2022-06 0 00:00: 00 Yes [id number] 4mg Take 1 tablet by mouth every 8 (eight) hours as needed for Nausea and Vomiting (N/V). [facility] ondansetron 4 mg disintegrat ing tablet 2022-06 0 00:00: 00 Yes [id number] 4mg Take 1 tablet by mouth every 8 (eight) hours as needed for Nausea and Vomiting (N/V). [facility] ondansetron 4 mg disintegrat ing tablet 2022-06 0- 00:00: 00 Yes [id number] 4mg Take 1 tablet by mouth every 8 (eight) hours as needed for Nausea and Vomiting (N/V). [facility] ondansetron 4 mg disintegrat ing tablet 2022-06 0 00:00: 00 Yes [id number] 4mg Take 1 tablet by mouth every 8 (eight) hours as needed for Nausea and Vomiting (N/V). [facility] ondansetron 4 mg disintegrat ing tablet 2022-06 0- 00:00: 00 Yes [id number] 4mg Take 1 tablet by mouth every 8 (eight) hours as needed for Nausea and Vomiting (N/V). [facility] ondansetron 4 mg disintegrat ing tablet 2022-06 0 00:00: 00 Yes [id number] 4mg Take 1 tablet by mouth every 8 (eight) hours as needed for Nausea and Vomiting (N/V). [facility] ondansetron 4 mg disintegrat ing tablet 2022-06 0 00:00: 00 Yes [id number] 4mg Take 1 tablet by mouth every 8 (eight) hours as needed for Nausea and Vomiting (N/V). [facility] ondansetron 4 mg disintegrat ing tablet 2022-06 0 00:00: 00 Yes [id number] 4mg Take 1 tablet by mouth every 8 (eight) hours as needed for Nausea and Vomiting (N/V). [facility] ondansetron 4 mg disintegrat ing tablet 2022-06 0 00:00: 00 Yes [id number] 4mg Take 1 tablet by mouth every 8 (eight) hours as needed for Nausea and Vomiting (N/V). [facility] ondansetron 4 mg disintegrat ing tablet 2022-06 0 00:00: 00 Yes [id number] 4mg Take 1 tablet by mouth every 8 (eight) hours as needed for Nausea and Vomiting (N/V). [facility] ondansetron 4 mg disintegrat ing tablet 2022-06 0- 00:00: 00 Yes [id number] 4mg Take 1 tablet by mouth every 8 (eight) hours as needed for Nausea and Vomiting (N/V). [facility] ondansetron 4 mg disintegrat ing tablet 2022-06 0- 00:00: 00 Yes [id number] 4mg Take 1 tablet by mouth every 8 (eight) hours as needed for Nausea and Vomiting (N/V). [facility] ondansetron 4 mg disintegrat ing tablet 2022-06 0- 00:00: 00 Yes [id number] 4mg Take 1 tablet by mouth every 8 (eight) hours as needed for Nausea and Vomiting (N/V). [facility] ondansetron 4 mg disintegrat ing tablet 2022-06 0- 00:00: 00 Yes [id number] 4mg Take 1 tablet by mouth every 8 (eight) hours as needed for Nausea and Vomiting (N/V). [facility] ondansetron 4 mg disintegrat ing tablet 2022-06 0 00:00: 00 Yes [id number] 4mg Take 1 tablet by mouth every 8 (eight) hours as needed for Nausea and Vomiting (N/V). [facility] ondansetron 4 mg disintegrat ing tablet 2022-06 0 00:00: 00 Yes [id number] 4mg Take 1 tablet by mouth every 8 (eight) hours as needed for Nausea and Vomiting (N/V). [facility] ondansetron 4 mg disintegrat ing tablet 2022-06 0 00:00: 00 Yes [id number] 4mg Take 1 tablet by mouth every 8 (eight) hours as needed for Nausea and Vomiting (N/V). [facility] ondansetron 4 mg disintegrat ing tablet 2022-06 0 00:00: 00 Yes [id number] 4mg Take 1 tablet by mouth every 8 (eight) hours as needed for Nausea and Vomiting (N/V). [facility] ondansetron 4 mg disintegrat ing tablet 2022-06 0- 00:00: 00 Yes [id number] 4mg Take 1 tablet by mouth every 8 (eight) hours as needed for Nausea and Vomiting (N/V). [facility] ondansetron 4 mg disintegrat ing tablet 2022-06 0- 00:00: 00 Yes [id number] 4mg Take 1 tablet by mouth every 8 (eight) hours as needed for Nausea and Vomiting (N/V). [facility] ondansetron 4 mg disintegrat ing tablet 2022-06 0 00:00: 00 Yes [id number] 4mg Take 1 tablet by mouth every 8 (eight) hours as needed for Nausea and Vomiting (N/V). [facility] ondansetron 4 mg disintegrat ing tablet 2022-06 0 00:00: 00 Yes [id number] 4mg Take 1 tablet by mouth every 8 (eight) hours as needed for Nausea and Vomiting (N/V). [facility] ondansetron 4 mg disintegrat ing tablet 2022-06 0 00:00: 00 Yes [id number] 4mg Take 1 tablet by mouth every 8 (eight) hours as needed for Nausea and Vomiting (N/V). [facility] ondansetron 4 mg disintegrat ing tablet 2022-06 00:00: 00 Yes [id number] 4mg Take 1 tablet by mouth every 8 (eight) hours as needed for Nausea and Vomiting (N/V). [facility] ondansetron 4 mg disintegrat ing tablet 2022-06 00:00: 00 Yes [id number] 4mg Take 1 tablet by mouth every 8 (eight) hours as needed for Nausea and Vomiting (N/V). [facility] ondansetron 4 mg disintegrat ing tablet 2022-06 00:00: 00 Yes [id number] 4mg Take 1 tablet by mouth every 8 (eight) hours as needed for Nausea and Vomiting (N/V). [facility] ondansetron 4 mg disintegrat ing tablet 2022-06 0 00:00: 00 Yes [id number] 4mg Take 1 tablet by mouth every 8 (eight) hours as needed for Nausea and Vomiting (N/V). [facility] ondansetron 4 mg disintegrat ing tablet 2022-06 0 00:00: 00 Yes [id number] 4mg Take 1 tablet by mouth every 8 (eight) hours as needed for Nausea and Vomiting (N/V). [facility] ondansetron 4 mg disintegrat ing tablet 2022-06 0 00:00: 00 Yes [id number] 4mg Take 1 tablet by mouth every 8 (eight) hours as needed for Nausea and Vomiting (N/V). [facility] ondansetron 4 mg disintegrat ing tablet 2022- 0-20 00:00: 00 Yes [id number] 4mg Take 1 tablet by mouth every 8 (eight) hours as needed for Nausea and Vomiting (N/V). [facility] ondansetron 4 mg disintegrat ing tablet 2022- 0-20 00:00: 00 Yes [id number] 4mg Take 1 tablet by mouth every 8 (eight) hours as needed for Nausea and Vomiting (N/V). [facility] ondansetron 4 mg disintegrat ing tablet 2022- 0-20 00:00: 00 Yes [id number] 4mg Take 1 tablet by mouth every 8 (eight) hours as needed for Nausea and Vomiting (N/V). [facility] ondansetron 4 mg disintegrat ing tablet 2022- 0-20 00:00: 00 Yes [id number] 4mg Take 1 tablet by mouth every 8 (eight) hours as needed for Nausea and Vomiting (N/V). [facility] ondansetron 4 mg disintegrat ing tablet 2022- 0-20 00:00: 00 08-16 00:00 :00 No [id number] 4mg Take 1 tablet by mouth every 8 (eight) hours as needed for Nausea and Vomiting (N/V). [facility] ondansetron 4 mg disintegrat ing tablet 2022- 0-20 00:00: 00 08-16 00:00 :00 No [id number] 4mg Take 1 tablet by mouth every 8 (eight) hours as needed for Nausea and Vomiting (N/V). [facility] predniSONE 5 mg tablet 2022- 0-20 00:00: 00 04-25 04:59 :00 No [id number] Take 3 tablets by mouth daily for 5 days, THEN 2 tablets daily for 5 days, THEN 1 tablet daily for 5 days. [facility] predniSONE 5 mg tablet 2022- 0-20 00:00: 00 04-25 04:59 :00 No [id number] Take 3 tablets by mouth daily for 5 days, THEN 2 tablets daily for 5 days, THEN 1 tablet daily for 5 days. [facility] predniSONE 5 mg tablet 3-1 0-20 00:00: 00 04-25 04:59 :00 No [id number] Take 3 tablets by mouth daily for 5 days, THEN 2 tablets daily for 5 days, THEN 1 tablet daily for 5 days. [facility] predniSONE 5 mg tablet 2022-1 0-20 00:00: 00 04-25 04:59 :00 No [id number] Take 3 tablets by mouth daily for 5 days, THEN 2 tablets daily for 5 days, THEN 1 tablet daily for 5 days. [facility] predniSONE 5 mg tablet 2022-1 0-20 00:00: 00 04-25 04:59 :00 No [id number] Take 3 tablets by mouth daily for 5 days, THEN 2 tablets daily for 5 days, THEN 1 tablet daily for 5 days. [facility] predniSONE 5 mg tablet 2022-1 0-20 00:00: 00 04-25 04:59 :00 No [id number] Take 3 tablets by mouth daily for 5 days, THEN 2 tablets daily for 5 days, THEN 1 tablet daily for 5 days. [facility] predniSONE 5 mg tablet 2022-1 0-20 00:00: 00 04-25 04:59 :00 No [id number] Take 3 tablets by mouth daily for 5 days, THEN 2 tablets daily for 5 days, THEN 1 tablet daily for 5 days. [facility] predniSONE 5 mg tablet 2022-1 0-20 00:00: 00 04-25 04:59 :00 No [id number] Take 3 tablets by mouth daily for 5 days, THEN 2 tablets daily for 5 days, THEN 1 tablet daily for 5 days. [facility] predniSONE 5 mg tablet 2022-1 0-20 00:00: 00 04-25 04:59 :00 No [id number] Take 3 tablets by mouth daily for 5 days, THEN 2 tablets daily for 5 days, THEN 1 tablet daily for 5 days. [facility] predniSONE 5 mg tablet 2022-1 0-20 00:00: 00 04-25 04:59 :00 No [id number] Take 3 tablets by mouth daily for 5 days, THEN 2 tablets daily for 5 days, THEN 1 tablet daily for 5 days. [facility] predniSONE 5 mg tablet 2022- 0-20 00:00: 04-25 04:59 :00 No [id number] Take 3 tablets by mouth daily for 5 days, THEN 2 tablets daily for 5 days, THEN 1 tablet daily for 5 days. [facility] predniSONE 5 mg tablet 2022-06 020 00:00: 00 04-25 04:59 :00 No [id number] Take 3 tablets by mouth daily for 5 days, THEN 2 tablets daily for 5 days, THEN 1 tablet daily for 5 days. [facility] predniSONE 5 mg tablet 2022-06 020 00:00: 00 04-25 04:59 :00 No [id number] Take 3 tablets by mouth daily for 5 days, THEN 2 tablets daily for 5 days, THEN 1 tablet daily for 5 days. [facility] predniSONE 5 mg tablet 2022-06 020 00:00: 04-25 04:59 :00 No [id number] Take 3 tablets by mouth daily for 5 days, THEN 2 tablets daily for 5 days, THEN 1 tablet daily for 5 days. [facility] predniSONE 5 mg tablet 2022-06 020 00:00: 00 04-25 04:59 :00 No [id number] Take 3 tablets by mouth daily for 5 days, THEN 2 tablets daily for 5 days, THEN 1 tablet daily for 5 days. [facility] ferrous sulfate 325 mg (65 mg iron) tablet 2022-0618 14:04: 54 Yes 325mg Take 1 tablet by mouth in the morning. [facility] ferrous sulfate 325 mg (65 mg iron) tablet 2022-06 14:04: 54 Yes 325mg Take 1 tablet by mouth in the morning. [facility] ferrous sulfate 325 mg (65 mg iron) tablet 2022-0618 14:04: 54 Yes 325mg Take 1 tablet by mouth in the morning. [facility] ferrous sulfate 325 mg (65 mg iron) tablet 2022-0618 14:04: 54 Yes 325mg Take 1 tablet by mouth in the morning. [facility] ferrous sulfate 325 mg (65 mg iron) tablet 2022-06 14:04: 54 Yes 325mg Take 1 tablet by mouth in the morning. [facility] ferrous sulfate 325 mg (65 mg iron) tablet 2022-06 14:04: 54 Yes 325mg Take 1 tablet by mouth in the morning. [facility] ferrous sulfate 325 mg (65 mg iron) tablet 2022-06 14:04: 54 Yes 325mg Take 1 tablet by mouth in the morning. [facility] ferrous sulfate 325 mg (65 mg iron) tablet 2022-06 14:04: 54 Yes 325mg Take 1 tablet by mouth in the morning. [facility] ferrous sulfate 325 mg (65 mg iron) tablet 2022-06 14:04: 54 Yes 325mg Take 1 tablet by mouth in the morning. [facility] ferrous sulfate 325 mg (65 mg iron) tablet 2022-06 14:04: 54 Yes 325mg Take 1 tablet by mouth in the morning. [facility] ferrous sulfate 325 mg (65 mg iron) tablet 2022-06 14:04: 54 Yes 325mg Take 1 tablet by mouth in the morning. [facility] ferrous sulfate 325 mg (65 mg iron) tablet 2022-06 14:04: 54 Yes 325mg Take 1 tablet by mouth in the morning. [facility] ferrous sulfate 325 mg (65 mg iron) tablet 2022-06 14:04: 54 Yes 325mg Take 1 tablet by mouth in the morning. [facility] ferrous sulfate 325 mg (65 mg iron) tablet 2022-06 14:04: 54 Yes 325mg Take 1 tablet by mouth in the morning. [facility] ferrous sulfate 325 mg (65 mg iron) tablet 2022-06 14:04: 54 Yes 325mg Take 1 tablet by mouth in the morning. [facility] ferrous sulfate 325 mg (65 mg iron) tablet 2022-06 14:04: 54 Yes 325mg Take 1 tablet by mouth in the morning. [facility] ferrous sulfate 325 mg (65 mg iron) tablet 2022-06 018 14:04: 54 Yes 325mg Take 1 tablet by mouth in the morning. [facility] norethindro ne 0.35 mg tablet 2022-06 0-16 00:00: 00 07-05 05:59 :00 No [id number] 100 .35mg Take 1 tablet by mouth in the morning for 90 days. [facility] norethindro ne 0.35 mg tablet 2022-06 0-16 00:00: 00 07-05 05:59 :00 No [id number] 100 .35mg Take 1 tablet by mouth in the morning for 90 days. [facility] norethindro ne 0.35 mg tablet 2022-06 016 00:00: 00 07-05 05:59 :00 No [id number] 100 .35mg Take 1 tablet by mouth in the morning for 90 days. [facility] norethindro ne 0.35 mg tablet 2022-06 016 00:00: 00 07-05 05:59 :00 No [id number] 100 .35mg Take 1 tablet by mouth in the morning for 90 days. [facility] norethindro ne 0.35 mg tablet 2022-06 0-16 00:00: 00 07-05 05:59 :00 No [id number] 100 .35mg Take 1 tablet by mouth in the morning for 90 days. [facility] norethindro ne 0.35 mg tablet 2022-06 0-16 00:00: 00 07-05 05:59 :00 No [id number] 100 .35mg Take 1 tablet by mouth in the morning for 90 days. [facility] norethindro ne 0.35 mg tablet 2022-06 0-16 00:00: 00 07-05 05:59 :00 No [id number] 100 .35mg Take 1 tablet by mouth in the morning for 90 days. [facility] norethindro ne 0.35 mg tablet 2022-06 0-16 00:00: 00 07-05 05:59 :00 No [id number] 100 .35mg Take 1 tablet by mouth in the morning for 90 days. [facility] norethindro ne 0.35 mg tablet 2022-06 0-16 00:00: 00 07-05 05:59 :00 No [id number] 100 .35mg Take 1 tablet by mouth in the morning for 90 days. [facility] norethindro ne 0.35 mg tablet 2022-06 0-16 00:00: 00 07-05 05:59 :00 No [id number] 100 .35mg Take 1 tablet by mouth in the morning for 90 days. [facility] norethindro ne 0.35 mg tablet 2022-06 0-16 00:00: 00 07-05 05:59 :00 No [id number] 100 .35mg Take 1 tablet by mouth in the morning for 90 days. [facility] norethindro ne 0.35 mg tablet 2022-06 0-16 00:00: 00 07-05 05:59 :00 No [id number] 100 .35mg Take 1 tablet by mouth in the morning for 90 days. [facility] norethindro ne 0.35 mg tablet 2022-06 0-16 00:00: 00 07-05 05:59 :00 No [id number] 100 .35mg Take 1 tablet by mouth in the morning for 90 days. [facility] norethindro ne 0.35 mg tablet 2022-06 0-16 00:00: 00 07-05 05:59 :00 No [id number] 100 .35mg Take 1 tablet by mouth in the morning for 90 days. [facility] norethindro ne 0.35 mg tablet 2022-06 0-16 00:00: 00 07-05 05:59 :00 No [id number] 100 .35mg Take 1 tablet by mouth in the morning for 90 days. [facility] norethindro ne 0.35 mg tablet 2022-06 0-16 00:00: 00 07-05 05:59 :00 No [id number] 100 .35mg Take 1 tablet by mouth in the morning for 90 days. [facility] norethindro ne 0.35 mg tablet 2022-06 0-16 00:00: 00 07-05 05:59 :00 No [id number] 100 .35mg Take 1 tablet by mouth in the morning for 90 days. [facility] norethindro ne 0.35 mg tablet 2022-06 0-16 00:00: 00 07-05 05:59 :00 No [id number] 100 .35mg Take 1 tablet by mouth in the morning for 90 days. [facility] norethindro ne 0.35 mg tablet 2022-06 016 00:00: 00 07-05 05:59 :00 No [id number] 100 .35mg Take 1 tablet by mouth in the morning for 90 days. [facility] norethindro ne 0.35 mg tablet 2022-06 0-16 00:00: 00 07-05 05:59 :00 No [id number] 100 .35mg Take 1 tablet by mouth in the morning for 90 days. [facility] norethindro ne 0.35 mg tablet 2022-06 0-16 00:00: 00 07-05 05:59 :00 No [id number] 100 .35mg Take 1 tablet by mouth in the morning for 90 days. [facility] norethindro ne 0.35 mg tablet 2022-06 0-16 00:00: 00 07-05 05:59 :00 No [id number] 100 .35mg Take 1 tablet by mouth in the morning for 90 days. [facility] norethindro ne 0.35 mg tablet 2022-06 0-16 00:00: 00 07-05 05:59 :00 No [id number] 100 .35mg Take 1 tablet by mouth in the morning for 90 days. [facility] norethindro ne 0.35 mg tablet 2022-06 0-16 00:00: 00 07-05 05:59 :00 No [id number] 100 .35mg Take 1 tablet by mouth in the morning for 90 days. [facility] norethindro ne 0.35 mg tablet 2022-06 0-16 00:00: 00 07-05 05:59 :00 No [id number] 100 .35mg Take 1 tablet by mouth in the morning for 90 days. [facility] norethindro ne 0.35 mg tablet 2022-06 0-16 00:00: 00 07-05 05:59 :00 No [id number] 100 .35mg Take 1 tablet by mouth in the morning for 90 days. [facility] norethindro ne 0.35 mg tablet 2022-06 0-16 00:00: 00 07-05 05:59 :00 No [id number] 100 .35mg Take 1 tablet by mouth in the morning for 90 days. [facility] norethindro ne 0.35 mg tablet 2022-06 0-16 00:00: 00 07-05 05:59 :00 No [id number] 100 .35mg Take 1 tablet by mouth in the morning for 90 days. [facility] norethindro ne 0.35 mg tablet 2022-06 0-16 00:00: 00 07-05 05:59 :00 No [id number] 100 .35mg Take 1 tablet by mouth in the morning for 90 days. [facility] norethindro ne 0.35 mg tablet 2022-06 0-16 00:00: 00 07-05 05:59 :00 No [id number] 100 .35mg Take 1 tablet by mouth in the morning for 90 days. [facility] norethindro ne 0.35 mg tablet 2022-06 0-16 00:00: 00 07-05 05:59 :00 No [id number] 100 .35mg Take 1 tablet by mouth in the morning for 90 days. [facility] norethindro ne 0.35 mg tablet 2022-06 0-16 00:00: 00 07-05 05:59 :00 No [id number] 100 .35mg Take 1 tablet by mouth in the morning for 90 days. [facility] norethindro ne 0.35 mg tablet 2022-06 0-16 00:00: 00 07-05 05:59 :00 No [id number] 100 .35mg Take 1 tablet by mouth in the morning for 90 days. [facility] norethindro ne 0.35 mg tablet 2022-06 0-16 00:00: 00 07-05 05:59 :00 No [id number] 100 .35mg Take 1 tablet by mouth in the morning for 90 days. [facility] norethindro ne 0.35 mg tablet 2022-06 0-16 00:00: 00 07-05 05:59 :00 No [id number] 100 .35mg Take 1 tablet by mouth in the morning for 90 days. [facility] norethindro ne 0.35 mg tablet 2022-06 0-16 00:00: 00 07-05 05:59 :00 No [id number] 100 .35mg Take 1 tablet by mouth in the morning for 90 days. [facility] norethindro ne 0.35 mg tablet 2022-06 0-16 00:00: 00 07-05 05:59 :00 No [id number] 100 .35mg Take 1 tablet by mouth in the morning for 90 days. [facility] norethindro ne 0.35 mg tablet 2022-06 0-16 00:00: 00 07-05 05:59 :00 No [id number] 100 .35mg Take 1 tablet by mouth in the morning for 90 days. [facility] norethindro ne 0.35 mg tablet 2022-06 0-16 00:00: 00 07-05 05:59 :00 No [id number] 100 .35mg Take 1 tablet by mouth in the morning for 90 days. [facility] norethindro ne 0.35 mg tablet 2022-06 0-16 00:00: 00 07-05 05:59 :00 No [id number] 100 .35mg Take 1 tablet by mouth in the morning for 90 days. [facility] norethindro ne 0.35 mg tablet 2022-06 0-16 00:00: 00 07-05 05:59 :00 No [id number] 100 .35mg Take 1 tablet by mouth in the morning for 90 days. [facility] norethindro ne 0.35 mg tablet 2022-06 0-16 00:00: 00 07-05 05:59 :00 No [id number] 100 .35mg Take 1 tablet by mouth in the morning for 90 days. [facility] norethindro ne 0.35 mg tablet 2022-06 0-16 00:00: 00 07-05 05:59 :00 No [id number] 100 .35mg Take 1 tablet by mouth in the morning for 90 days. [facility] norethindro ne 0.35 mg tablet 2022-06 0-16 00:00: 00 07-05 05:59 :00 No [id number] 100 .35mg Take 1 tablet by mouth in the morning for 90 days. [facility] norethindro ne 0.35 mg tablet 2022-06 0-16 00:00: 00 07-05 05:59 :00 No [id number] 100 .35mg Take 1 tablet by mouth in the morning for 90 days. [facility] norethindro ne 0.35 mg tablet 2022-06 0-16 00:00: 00 07-05 05:59 :00 No [id number] 100 .35mg Take 1 tablet by mouth in the morning for 90 days. [facility] norethindro ne 0.35 mg tablet 2022-06 0-16 00:00: 00 07-05 05:59 :00 No [id number] 100 .35mg Take 1 tablet by mouth in the morning for 90 days. [facility] norethindro ne 0.35 mg tablet 2022-06 0-16 00:00: 00 07-05 05:59 :00 No [id number] 100 .35mg Take 1 tablet by mouth in the morning for 90 days. [facility] norethindro ne 0.35 mg tablet 2022-06 0-16 00:00: 00 07-05 05:59 :00 No [id number] 100 .35mg Take 1 tablet by mouth in the morning for 90 days. [facility] norethindro ne 0.35 mg tablet 2022-06 0-16 00:00: 00 07-05 05:59 :00 No [id number] 100 .35mg Take 1 tablet by mouth in the morning for 90 days. [facility] norethindro ne 0.35 mg tablet 2022-06 0-16 00:00: 00 07-05 05:59 :00 No [id number] 100 .35mg Take 1 tablet by mouth in the morning for 90 days. [facility] norethindro ne 0.35 mg tablet 2022-06 0-16 00:00: 00 07-05 05:59 :00 No [id number] 100 .35mg Take 1 tablet by mouth in the morning for 90 days. [facility] norethindro ne 0.35 mg tablet 2022-06 0-16 00:00: 00 07-05 05:59 :00 No [id number] 100 .35mg Take 1 tablet by mouth in the morning for 90 days. [facility] norethindro ne 0.35 mg tablet 2022-06 0-16 00:00: 00 07-05 05:59 :00 No [id number] 100 .35mg Take 1 tablet by mouth in the morning for 90 days. [facility] norethindro ne 0.35 mg tablet 2022-06 0-16 00:00: 00 07-05 05:59 :00 No [id number] 100 .35mg Take 1 tablet by mouth in the morning for 90 days. [facility] norethindro ne 0.35 mg tablet 2022-06 0-16 00:00: 00 07-05 05:59 :00 No [id number] 100 .35mg Take 1 tablet by mouth in the morning for 90 days. [facility] norethindro ne 0.35 mg tablet 2022-06 0-16 00:00: 00 07-05 05:59 :00 No [id number] 100 .35mg Take 1 tablet by mouth in the morning for 90 days. [facility] norethindro ne 0.35 mg tablet 2022-06 0-16 00:00: 00 07-05 05:59 :00 No [id number] 100 .35mg Take 1 tablet by mouth in the morning for 90 days. [facility] norethindro ne 0.35 mg tablet 2022-06 0-16 00:00: 00 07-05 05:59 :00 No [id number] 100 .35mg Take 1 tablet by mouth in the morning for 90 days. [facility] medroxyPROG ESTERone (PROVERA) 5 mg tablet 2022-06 016 00:00: 00 04-13 04:59 :00 No [id number] 100 5mg Take 1 tablet by mouth in the morning for 7 days. [facility] medroxyPROG ESTERone (PROVERA) 5 mg tablet 2022-06 00:00: 00 04-13 04:59 :00 No [id number] 100 5mg Take 1 tablet by mouth in the morning for 7 days. [facility] medroxyPROG ESTERone (PROVERA) 5 mg tablet 2022-06 00:00: 00 04-13 04:59 :00 No [id number] 100 5mg Take 1 tablet by mouth in the morning for 7 days. [facility] medroxyPROG ESTERone (PROVERA) 5 mg tablet 2022-06 016 00:00: 00 04-13 04:59 :00 No [id number] 100 5mg Take 1 tablet by mouth in the morning for 7 days. [facility] medroxyPROG ESTERone (PROVERA) 5 mg tablet 2022-06 0-16 00:00: 00 04-13 04:59 :00 No [id number] 100 5mg Take 1 tablet by mouth in the morning for 7 days. [facility] medroxyPROG ESTERone (PROVERA) 5 mg tablet 2022-06 0-16 00:00: 00 04-13 04:59 :00 No [id number] 100 5mg Take 1 tablet by mouth in the morning for 7 days. [facility] medroxyPROG ESTERone (PROVERA) 5 mg tablet 2022-06 0-16 00:00: 00 04-13 04:59 :00 No [id number] 100 5mg Take 1 tablet by mouth in the morning for 7 days. [facility] medroxyPROG ESTERone (PROVERA) 5 mg tablet 2022-06 0-16 00:00: 00 04-13 04:59 :00 No [id number] 100 5mg Take 1 tablet by mouth in the morning for 7 days. [facility] medroxyPROG ESTERone (PROVERA) 5 mg tablet 2022-06 0-16 00:00: 00 04-13 04:59 :00 No [id number] 100 5mg Take 1 tablet by mouth in the morning for 7 days. [facility] medroxyPROG ESTERone (PROVERA) 5 mg tablet 2022-06 0-16 00:00: 00 04-13 04:59 :00 No [id number] 100 5mg Take 1 tablet by mouth in the morning for 7 days. [facility] medroxyPROG ESTERone (PROVERA) 5 mg tablet 2022-06 016 00:00: 00 04-13 04:59 :00 No [id number] 100 5mg Take 1 tablet by mouth in the morning for 7 days. [facility] medroxyPROG ESTERone (PROVERA) 5 mg tablet 2022-06 0-16 00:00: 00 04-13 04:59 :00 No [id number] 100 5mg Take 1 tablet by mouth in the morning for 7 days. [facility] medroxyPROG ESTERone (PROVERA) 5 mg tablet 2022-06 0-16 00:00: 00 04-13 04:59 :00 No [id number] 100 5mg Take 1 tablet by mouth in the morning for 7 days. [facility] medroxyPROG ESTERone (PROVERA) 5 mg tablet 2022-06 0-16 00:00: 04-13 04:59 :00 No [id number] 100 5mg Take 1 tablet by mouth in the morning for 7 days. [facility] medroxyPROG ESTERone (PROVERA) 5 mg tablet 2022-06 0-16 00:00: 00 04-13 04:59 :00 No [id number] 100 5mg Take 1 tablet by mouth in the morning for 7 days. [facility] medroxyPROG ESTERone (PROVERA) 5 mg tablet 2022-06 016 00:00: 00 04-13 04:59 :00 No [id number] 100 5mg Take 1 tablet by mouth in the morning for 7 days. [facility] medroxyPROG ESTERone (PROVERA) 5 mg tablet 2022-06 016 00:00: 00 04-13 04:59 :00 No [id number] 100 5mg Take 1 tablet by mouth in the morning for 7 days. [facility] medroxyPROG ESTERone (PROVERA) 5 mg tablet 2022-06 016 00:00: 04-13 04:59 :00 No [id number] 100 5mg Take 1 tablet by mouth in the morning for 7 days. [facility] OZEMPIC 0.25 mg or 0.5 mg (2 mg/3 mL) PnIj 2022-0 03-17 00:00: 00 Yes INJECT 0.5 MG SUBCUTANEO USLY WEEKLY. [facility] OZEMPIC 0.25 mg or 0.5 mg (2 mg/3 mL) PnIj 3-0 03-17 00:00: 00 Yes INJECT 0.5 MG SUBCUTANEO USLY WEEKLY. [facility] OZEMPIC 0.25 mg or 0.5 mg (2 mg/3 mL) PnIj 3-0 03-17 00:00: 00 Yes INJECT 0.5 MG SUBCUTANEO USLY WEEKLY. [facility] OZEMPIC 0.25 mg or 0.5 mg (2 mg/3 mL) PnIj 3-0 03-17 00:00: 00 Yes INJECT 0.5 MG SUBCUTANEO USLY WEEKLY. [facility] OZEMPIC 0.25 mg or 0.5 mg (2 mg/3 mL) PnIj 2023-0 03-17 00:00: 00 Yes INJECT 0.5 MG SUBCUTANEO USLY WEEKLY. [facility] OZEMPIC 0.25 mg or 0.5 mg (2 mg/3 mL) PnIj 3-0 03-17 00:00: 00 Yes INJECT 0.5 MG SUBCUTANEO USLY WEEKLY. [facility] OZEMPIC 0.25 mg or 0.5 mg (2 mg/3 mL) PnIj 2023-0 03-17 00:00: 00 Yes INJECT 0.5 MG SUBCUTANEO USLY WEEKLY. [facility] OZEMPIC 0.25 mg or 0.5 mg (2 mg/3 mL) PnIj 3-0 03-17 00:00: 00 Yes INJECT 0.5 MG SUBCUTANEO USLY WEEKLY. [facility] OZEMPIC 0.25 mg or 0.5 mg (2 mg/3 mL) PnIj 3-0 03-17 00:00: 00 Yes INJECT 0.5 MG SUBCUTANEO USLY WEEKLY. [facility] OZEMPIC 0.25 mg or 0.5 mg (2 mg/3 mL) PnIj 3-0 03-17 00:00: 00 Yes INJECT 0.5 MG SUBCUTANEO USLY WEEKLY. [facility] OZEMPIC 0.25 mg or 0.5 mg (2 mg/3 mL) PnIj 2023-0 03-17 00:00: 00 Yes INJECT 0.5 MG SUBCUTANEO USLY WEEKLY. [facility] OZEMPIC 0.25 mg or 0.5 mg (2 mg/3 mL) PnIj 2023-0 03-17 00:00: 00 Yes INJECT 0.5 MG SUBCUTANEO USLY WEEKLY. [facility] OZEMPIC 0.25 mg or 0.5 mg (2 mg/3 mL) PnIj 2023-0 03-17 00:00: 00 Yes INJECT 0.5 MG SUBCUTANEO USLY WEEKLY. [facility] OZEMPIC 0.25 mg or 0.5 mg (2 mg/3 mL) PnIj 2023-0 03-17 00:00: 00 Yes INJECT 0.5 MG SUBCUTANEO USLY WEEKLY. [facility] OZEMPIC 0.25 mg or 0.5 mg (2 mg/3 mL) PnIj 2023-0 03-17 00:00: 00 Yes INJECT 0.5 MG SUBCUTANEO USLY WEEKLY. [facility] OZEMPIC 0.25 mg or 0.5 mg (2 mg/3 mL) PnIj 2023-0 03-17 00:00: 00 Yes INJECT 0.5 MG SUBCUTANEO USLY WEEKLY. [facility] OZEMPIC 0.25 mg or 0.5 mg (2 mg/3 mL) PnIj 2023-0 03-17 00:00: 00 Yes INJECT 0.5 MG SUBCUTANEO USLY WEEKLY. [facility] OZEMPIC 0.25 mg or 0.5 mg (2 mg/3 mL) PnIj 2023-0 03-17 00:00: 00 Yes INJECT 0.5 MG SUBCUTANEO USLY WEEKLY. [facility] OZEMPIC 0.25 mg or 0.5 mg (2 mg/3 mL) PnIj 3-0 03-17 00:00: 00 Yes INJECT 0.5 MG SUBCUTANEO USLY WEEKLY. [facility] OZEMPIC 0.25 mg or 0.5 mg (2 mg/3 mL) PnIj 2023-0 03-17 00:00: 00 Yes INJECT 0.5 MG SUBCUTANEO USLY WEEKLY. [facility] OZEMPIC 0.25 mg or 0.5 mg (2 mg/3 mL) PnIj 2023-0 03-17 00:00: 00 Yes INJECT 0.5 MG SUBCUTANEO USLY WEEKLY. [facility] OZEMPIC 0.25 mg or 0.5 mg (2 mg/3 mL) PnIj 2023-0 03-17 00:00: 00 Yes INJECT 0.5 MG SUBCUTANEO USLY WEEKLY. [facility] OZEMPIC 0.25 mg or 0.5 mg (2 mg/3 mL) PnIj 2023-0 03-17 00:00: 00 Yes INJECT 0.5 MG SUBCUTANEO USLY WEEKLY. [facility] OZEMPIC 0.25 mg or 0.5 mg (2 mg/3 mL) PnIj 3-0 03-17 00:00: 00 Yes INJECT 0.5 MG SUBCUTANEO USLY WEEKLY. [facility] OZEMPIC 0.25 mg or 0.5 mg (2 mg/3 mL) PnIj 3-0 03-17 00:00: 00 Yes INJECT 0.5 MG SUBCUTANEO USLY WEEKLY. [facility] OZEMPIC 0.25 mg or 0.5 mg (2 mg/3 mL) PnIj 3-0 03-17 00:00: 00 Yes INJECT 0.5 MG SUBCUTANEO USLY WEEKLY. [facility] OZEMPIC 0.25 mg or 0.5 mg (2 mg/3 mL) PnIj 3-0 03-17 00:00: 00 Yes INJECT 0.5 MG SUBCUTANEO USLY WEEKLY. [facility] OZEMPIC 0.25 mg or 0.5 mg (2 mg/3 mL) PnIj 3-0 03-17 00:00: 00 Yes INJECT 0.5 MG SUBCUTANEO USLY WEEKLY. [facility] OZEMPIC 0.25 mg or 0.5 mg (2 mg/3 mL) PnIj 3-0 03-17 00:00: 00 Yes INJECT 0.5 MG SUBCUTANEO USLY WEEKLY. [facility] OZEMPIC 0.25 mg or 0.5 mg (2 mg/3 mL) PnIj 3-0 03-17 00:00: 00 Yes INJECT 0.5 MG SUBCUTANEO USLY WEEKLY. [facility] OZEMPIC 0.25 mg or 0.5 mg (2 mg/3 mL) PnIj 3-0 03-17 00:00: 00 Yes INJECT 0.5 MG SUBCUTANEO USLY WEEKLY. [facility] OZEMPIC 0.25 mg or 0.5 mg (2 mg/3 mL) PnIj 3-0 03-17 00:00: 00 Yes INJECT 0.5 MG SUBCUTANEO USLY WEEKLY. [facility] OZEMPIC 0.25 mg or 0.5 mg (2 mg/3 mL) PnIj 3-0 03-17 00:00: 00 Yes INJECT 0.5 MG SUBCUTANEO USLY WEEKLY. [facility] OZEMPIC 0.25 mg or 0.5 mg (2 mg/3 mL) PnIj 3-0 03-17 00:00: 00 Yes INJECT 0.5 MG SUBCUTANEO USLY WEEKLY. [facility] OZEMPIC 0.25 mg or 0.5 mg (2 mg/3 mL) PnIj 2023-0 03-17 00:00: 00 Yes INJECT 0.5 MG SUBCUTANEO USLY WEEKLY. [facility] OZEMPIC 0.25 mg or 0.5 mg (2 mg/3 mL) PnIj 3-0 03-17 00:00: 00 Yes INJECT 0.5 MG SUBCUTANEO USLY WEEKLY. [facility] OZEMPIC 0.25 mg or 0.5 mg (2 mg/3 mL) PnIj 3-0 03-17 00:00: 00 Yes INJECT 0.5 MG SUBCUTANEO USLY WEEKLY. [facility] OZEMPIC 0.25 mg or 0.5 mg (2 mg/3 mL) PnIj 3-0 03-17 00:00: 00 Yes INJECT 0.5 MG SUBCUTANEO USLY WEEKLY. [facility] OZEMPIC 0.25 mg or 0.5 mg (2 mg/3 mL) PnIj 2023-0 03-17 00:00: 00 Yes INJECT 0.5 MG SUBCUTANEO USLY WEEKLY. [facility] OZEMPIC 0.25 mg or 0.5 mg (2 mg/3 mL) PnIj 3-0 03-17 00:00: 00 Yes INJECT 0.5 MG SUBCUTANEO USLY WEEKLY. [facility] OZEMPIC 0.25 mg or 0.5 mg (2 mg/3 mL) PnIj 2023-0 03-17 00:00: 00 Yes INJECT 0.5 MG SUBCUTANEO USLY WEEKLY. [facility] [place] [facility] OZEMPIC 0.25 mg or 0.5 mg (2 mg/3 mL) PnIj 3-0 03-17 00:00: 00 Yes INJECT 0.5 MG SUBCUTANEO USLY WEEKLY. [facility] OZEMPIC 0.25 mg or 0.5 mg (2 mg/3 mL) PnIj 3-0 03-17 00:00: 00 Yes INJECT 0.5 MG SUBCUTANEO USLY WEEKLY. [facility] OZEMPIC 0.25 mg or 0.5 mg (2 mg/3 mL) PnIj 2023-0 03-17 00:00: 00 Yes INJECT 0.5 MG SUBCUTANEO USLY WEEKLY. [facility] OZEMPIC 0.25 mg or 0.5 mg (2 mg/3 mL) PnIj 3-0 03-17 00:00: 00 Yes INJECT 0.5 MG SUBCUTANEO USLY WEEKLY. [facility] OZEMPIC 0.25 mg or 0.5 mg (2 mg/3 mL) PnIj 3-0 03-17 00:00: 00 Yes INJECT 0.5 MG SUBCUTANEO USLY WEEKLY. [facility] OZEMPIC 0.25 mg or 0.5 mg (2 mg/3 mL) PnIj 3-0 03-17 00:00: 00 Yes INJECT 0.5 MG SUBCUTANEO USLY WEEKLY. [facility] OZEMPIC 0.25 mg or 0.5 mg (2 mg/3 mL) PnIj 3-0 03-17 00:00: 00 Yes INJECT 0.5 MG SUBCUTANEO USLY WEEKLY. [facility] OZEMPIC 0.25 mg or 0.5 mg (2 mg/3 mL) PnIj 2023-0 03-17 00:00: 00 Yes INJECT 0.5 MG SUBCUTANEO USLY WEEKLY. [facility] OZEMPIC 0.25 mg or 0.5 mg (2 mg/3 mL) PnIj 2023-0 03-17 00:00: 00 Yes INJECT 0.5 MG SUBCUTANEO USLY WEEKLY. [facility] OZEMPIC 0.25 mg or 0.5 mg (2 mg/3 mL) PnIj 2023-0 03-17 00:00: 00 Yes INJECT 0.5 MG SUBCUTANEO USLY WEEKLY. [facility] OZEMPIC 0.25 mg or 0.5 mg (2 mg/3 mL) PnIj 2023-0 03-17 00:00: 00 Yes INJECT 0.5 MG SUBCUTANEO USLY WEEKLY. [facility] OZEMPIC 0.25 mg or 0.5 mg (2 mg/3 mL) PnIj 2023-0 03-17 00:00: 00 Yes INJECT 0.5 MG SUBCUTANEO USLY WEEKLY. [facility] OZEMPIC 0.25 mg or 0.5 mg (2 mg/3 mL) PnIj 2023-0 03-17 00:00: 00 Yes INJECT 0.5 MG SUBCUTANEO USLY WEEKLY. [facility] OZEMPIC 0.25 mg or 0.5 mg (2 mg/3 mL) PnIj 2023-0 03-17 00:00: 00 Yes INJECT 0.5 MG SUBCUTANEO USLY WEEKLY. [facility] OZEMPIC 0.25 mg or 0.5 mg (2 mg/3 mL) PnIj 3-0 03-17 00:00: 00 Yes INJECT 0.5 MG SUBCUTANEO USLY WEEKLY. [facility] OZEMPIC 0.25 mg or 0.5 mg (2 mg/3 mL) PnIj 2023-0 03-17 00:00: 00 Yes INJECT 0.5 MG SUBCUTANEO USLY WEEKLY. [facility] OZEMPIC 0.25 mg or 0.5 mg (2 mg/3 mL) PnIj 2023-0 03-17 00:00: 00 Yes INJECT 0.5 MG SUBCUTANEO USLY WEEKLY. [facility] OZEMPIC 0.25 mg or 0.5 mg (2 mg/3 mL) PnIj 2023-0 03-17 00:00: 00 Yes INJECT 0.5 MG SUBCUTANEO USLY WEEKLY. [facility] OZEMPIC 0.25 mg or 0.5 mg (2 mg/3 mL) PnIj 2023-0 03-17 00:00: 00 Yes INJECT 0.5 MG SUBCUTANEO USLY WEEKLY. [facility] OZEMPIC 0.25 mg or 0.5 mg (2 mg/3 mL) PnIj 3-0 03-17 00:00: 00 Yes INJECT 0.5 MG SUBCUTANEO USLY WEEKLY. [facility] OZEMPIC 0.25 mg or 0.5 mg (2 mg/3 mL) PnIj 3-0 03-17 00:00: 00 Yes INJECT 0.5 MG SUBCUTANEO USLY WEEKLY. [facility] OZEMPIC 0.25 mg or 0.5 mg (2 mg/3 mL) PnIj 3-0 03-17 00:00: 00 Yes INJECT 0.5 MG SUBCUTANEO USLY WEEKLY. [facility] OZEMPIC 0.25 mg or 0.5 mg (2 mg/3 mL) PnIj 3-0 03-17 00:00: 00 Yes INJECT 0.5 MG SUBCUTANEO USLY WEEKLY. [facility] OZEMPIC 0.25 mg or 0.5 mg (2 mg/3 mL) PnIj 3-0 03-17 00:00: 00 Yes INJECT 0.5 MG SUBCUTANEO USLY WEEKLY. [facility] OZEMPIC 0.25 mg or 0.5 mg (2 mg/3 mL) PnIj 3-0 03-17 00:00: 00 Yes INJECT 0.5 MG SUBCUTANEO USLY WEEKLY. [facility] OZEMPIC 0.25 mg or 0.5 mg (2 mg/3 mL) PnIj 3-0 03-17 00:00: 00 Yes INJECT 0.5 MG SUBCUTANEO USLY WEEKLY. [facility] OZEMPIC 0.25 mg or 0.5 mg (2 mg/3 mL) PnIj 3-0 03-17 00:00: 00 Yes INJECT 0.5 MG SUBCUTANEO USLY WEEKLY. [facility] OZEMPIC 0.25 mg or 0.5 mg (2 mg/3 mL) PnIj 3-0 03-17 00:00: 00 Yes INJECT 0.5 MG SUBCUTANEO USLY WEEKLY. [facility] OZEMPIC 0.25 mg or 0.5 mg (2 mg/3 mL) PnIj 2023-0 03-17 00:00: 00 Yes INJECT 0.5 MG SUBCUTANEO USLY WEEKLY. [facility] OZEMPIC 0.25 mg or 0.5 mg (2 mg/3 mL) PnIj 2023-0 03-17 00:00: 00 Yes INJECT 0.5 MG SUBCUTANEO USLY WEEKLY. [facility] OZEMPIC 0.25 mg or 0.5 mg (2 mg/3 mL) PnIj 2023-0 03-17 00:00: 00 Yes INJECT 0.5 MG SUBCUTANEO USLY WEEKLY. [facility] OZEMPIC 0.25 mg or 0.5 mg (2 mg/3 mL) PnIj 2023-0 03-17 00:00: 00 Yes INJECT 0.5 MG SUBCUTANEO USLY WEEKLY. [facility] OZEMPIC 0.25 mg or 0.5 mg (2 mg/3 mL) PnIj 2023-0 03-17 00:00: 00 Yes INJECT 0.5 MG SUBCUTANEO USLY WEEKLY. [facility] OZEMPIC 0.25 mg or 0.5 mg (2 mg/3 mL) PnIj 3-0 03-17 00:00: 00 Yes INJECT 0.5 MG SUBCUTANEO USLY WEEKLY. [facility] OZEMPIC 0.25 mg or 0.5 mg (2 mg/3 mL) PnIj 2023-0 03-17 00:00: 00 Yes INJECT 0.5 MG SUBCUTANEO USLY WEEKLY. [facility] OZEMPIC 0.25 mg or 0.5 mg (2 mg/3 mL) PnIj 2023-0 03-17 00:00: 00 Yes INJECT 0.5 MG SUBCUTANEO USLY WEEKLY. [facility] OZEMPIC 0.25 mg or 0.5 mg (2 mg/3 mL) PnIj 2023-0 03-17 00:00: 00 Yes INJECT 0.5 MG SUBCUTANEO USLY WEEKLY. [facility] [place] [facility] OZEMPIC 0.25 mg or 0.5 mg (2 mg/3 mL) PnIj 3-0 03-17 00:00: 00 Yes INJECT 0.5 MG SUBCUTANEO USLY WEEKLY. [facility] OZEMPIC 0.25 mg or 0.5 mg (2 mg/3 mL) PnIj 3-0 03-17 00:00: 00 Yes INJECT 0.5 MG SUBCUTANEO USLY WEEKLY. [facility] [place] [facility] OZEMPIC 0.25 mg or 0.5 mg (2 mg/3 mL) PnIj 2023-0 03-17 00:00: 00 Yes INJECT 0.5 MG SUBCUTANEO USLY WEEKLY. [facility] OZEMPIC 0.25 mg or 0.5 mg (2 mg/3 mL) PnIj 3-0 03-17 00:00: 00 Yes INJECT 0.5 MG SUBCUTANEO USLY WEEKLY. [facility] OZEMPIC 0.25 mg or 0.5 mg (2 mg/3 mL) PnIj 3-0 03-17 00:00: 00 Yes INJECT 0.5 MG SUBCUTANEO USLY WEEKLY. [facility] OZEMPIC 0.25 mg or 0.5 mg (2 mg/3 mL) PnIj 3-0 03-17 00:00: 00 Yes INJECT 0.5 MG SUBCUTANEO USLY WEEKLY. [facility] [place] [facility] OZEMPIC 0.25 mg or 0.5 mg (2 mg/3 mL) PnIj 2023-0 03-17 00:00: 00 Yes INJECT 0.5 MG SUBCUTANEO USLY WEEKLY. [facility] [place] [facility] OZEMPIC 0.25 mg or 0.5 mg (2 mg/3 mL) PnIj 2023-0 03-17 00:00: 00 Yes INJECT 0.5 MG SUBCUTANEO USLY WEEKLY. [facility] OZEMPIC 0.25 mg or 0.5 mg (2 mg/3 mL) PnIj 2023-0 03-17 00:00: 00 Yes INJECT 0.5 MG SUBCUTANEO USLY WEEKLY. [facility] OZEMPIC 0.25 mg or 0.5 mg (2 mg/3 mL) PnIj 0 03-17 00:00: 00 Yes INJECT 0.5 MG SUBCUTANEO USLY WEEKLY. [facility] OZEMPIC 0.25 mg or 0.5 mg (2 mg/3 mL) PnIj 0 03-17 00:00: 00 Yes INJECT 0.5 MG SUBCUTANEO USLY WEEKLY. [facility] OZEMPIC 0.25 mg or 0.5 mg (2 mg/3 mL) PnIj 03-17 00:00: 00 Yes INJECT 0.5 MG SUBCUTANEO USLY WEEKLY. [facility] OZEMPIC 0.25 mg or 0.5 mg (2 mg/3 mL) PnIj 03-17 00:00: 00 Yes INJECT 0.5 MG SUBCUTANEO USLY WEEKLY. [facility] OZEMPIC 0.25 mg or 0.5 mg (2 mg/3 mL) PnIj 03-17 00:00: 00 Yes INJECT 0.5 MG SUBCUTANEO USLY WEEKLY. [facility] metroNIDAZO LE 500 mg tablet 03-17 00:00: 00 04-07 00:00 :00 No TAKE ONE (1) TABLET(S) BY MOUTH EVERY TWELVE HOURS FOR 7 DAYS. [facility] ciprofloxac in HCl 500 mg tablet 03-17 00:00: 00 04-07 00:00 :00 No TAKE ONE (1) TABLET(S) BY MOUTH EVERY TWELVE HOURS FOR SEVEN DAYS. [facility] metroNIDAZO LE 500 mg tablet 03-17 00:00: 00 04-07 00:00 :00 No TAKE ONE (1) TABLET(S) BY MOUTH EVERY TWELVE HOURS FOR 7 DAYS. [facility] ciprofloxac in HCl 500 mg tablet 03-17 00:00: 00 04-07 00:00 :00 No TAKE ONE (1) TABLET(S) BY MOUTH EVERY TWELVE HOURS FOR SEVEN DAYS. [facility] phentermine 37.5 mg tablet 03-12 00:00: 00 Yes 37.5mg Take 1 tablet by mouth in the morning. [facility] phentermine 37.5 mg tablet 3-0 03-12 00:00: 00 Yes 37.5mg Take 1 tablet by mouth in the morning. [facility] phentermine 37.5 mg tablet 3-0 03-12 00:00: 00 Yes 37.5mg Take 1 tablet by mouth in the morning. [facility] phentermine 37.5 mg tablet 3-0 03-12 00:00: 00 Yes 37.5mg Take 1 tablet by mouth in the morning. [facility] phentermine 37.5 mg tablet 3-0 03-12 00:00: 00 Yes 37.5mg Take 1 tablet by mouth in the morning. [facility] phentermine 37.5 mg tablet 3-0 03-12 00:00: 00 Yes 37.5mg Take 1 tablet by mouth in the morning. [facility] phentermine 37.5 mg tablet 3-0 03-12 00:00: 00 Yes 37.5mg Take 1 tablet by mouth in the morning. [facility] phentermine 37.5 mg tablet 3-0 03-12 00:00: 00 Yes 37.5mg Take 1 tablet by mouth in the morning. [facility] phentermine 37.5 mg tablet 3-0 03-12 00:00: 00 Yes 37.5mg Take 1 tablet by mouth in the morning. [facility] phentermine 37.5 mg tablet 3-0 03-12 00:00: 00 Yes 37.5mg Take 1 tablet by mouth in the morning. [facility] phentermine 37.5 mg tablet 3-0 03-12 00:00: 00 Yes 37.5mg Take 1 tablet by mouth in the morning. [facility] phentermine 37.5 mg tablet 3-0 03-12 00:00: 00 Yes 37.5mg Take 1 tablet by mouth in the morning. [facility] phentermine 37.5 mg tablet 3-0 03-12 00:00: 00 Yes 37.5mg Take 1 tablet by mouth in the morning. [facility] phentermine 37.5 mg tablet 2023-0 9 00:00: 00 Yes 37.5mg Take 1 tablet by mouth in the morning. [facility]5 [facility] tablet 2023-0 9- 00:00: 00 Yes 37.5mg Take 1 tablet by mouth in the morning. [facility] phentermine 37.5 mg tablet 2023-0 9 00:00: 00 Yes 37.5mg Take 1 tablet by mouth in the morning. [facility] phentermine 37.5 mg tablet 2023-0 9- 00:00: 00 Yes 37.5mg Take 1 tablet by mouth in the morning. [facility] phentermine 37.5 mg tablet 2023-0 03-12 00:00: 00 Yes 37.5mg Take 1 tablet by mouth in the morning. [facility] phentermine 37.5 mg tablet 3-0 03-12 00:00: 00 Yes 37.5mg Take 1 tablet by mouth in the morning. [facility] phentermine 37.5 mg tablet 3-0 03-12 00:00: 00 Yes 37.5mg Take 1 tablet by mouth in the morning. [facility] phentermine 37.5 mg tablet 2023-0 03-12 00:00: 00 Yes 37.5mg Take 1 tablet by mouth in the morning. [facility] phentermine 37.5 mg tablet 2023-0 -22 00:00: 00 Yes 37.5mg Take 1 tablet by mouth in the morning. [facility] phentermine 37.5 mg tablet 2023-0 9-22 00:00: 00 Yes 37.5mg Take 1 tablet by mouth in the morning. [facility] phentermine 37.5 mg tablet 3-0 9-22 00:00: 00 Yes 37.5mg Take 1 tablet by mouth in the morning. [facility] phentermine 37.5 mg tablet 2023-0 9-22 00:00: 00 Yes 37.5mg Take 1 tablet by mouth in the morning. [facility] phentermine 37.5 mg tablet 3-0 03-12 00:00: 00 Yes 37.5mg Take 1 tablet by mouth in the morning. [facility] phentermine 37.5 mg tablet 2022-0 03-12 00:00: 00 Yes 37.5mg Take 1 tablet by mouth in the morning. [facility] phentermine 37.5 mg tablet 2022-0 03-12 00:00: 00 Yes 37.5mg Take 1 tablet by mouth in the morning. [facility] phentermine 37.5 mg tablet 2022-0 03-12 00:00: 00 Yes 37.5mg Take 1 tablet by mouth in the morning. [facility] phentermine 37.5 mg tablet 2022-0 03-12 00:00: 00 Yes 37.5mg Take 1 tablet by mouth in the morning. [facility] phentermine 37.5 mg tablet 2022-0 03-12 00:00: 00 Yes 37.5mg Take 1 tablet by mouth in the morning. [facility] phentermine 37.5 mg tablet 3-0 03-12 00:00: 00 Yes 37.5mg Take 1 tablet by mouth in the morning. [facility] phentermine 37.5 mg tablet 3-0 03-12 00:00: 00 Yes 37.5mg Take 1 tablet by mouth in the morning. [facility] phentermine 37.5 mg tablet 3-0 03-12 00:00: 00 Yes 37.5mg Take 1 tablet by mouth in the morning. [facility] phentermine 37.5 mg tablet 3-0 03-12 00:00: 00 Yes 37.5mg Take 1 tablet by mouth in the morning. [facility] phentermine 37.5 mg tablet 3-0 03-12 00:00: 00 Yes 37.5mg Take 1 tablet by mouth in the morning. [facility] phentermine 37.5 mg tablet 3-0 03-12 00:00: 00 Yes 37.5mg Take 1 tablet by mouth in the morning. [facility] phentermine 37.5 mg tablet 3-0 03-12 00:00: 00 Yes 37.5mg Take 1 tablet by mouth in the morning. [facility] phentermine 37.5 mg tablet 3-0 03-12 00:00: 00 Yes 37.5mg Take 1 tablet by mouth in the morning. [facility] phentermine 37.5 mg tablet 3-0 03-12 00:00: 00 Yes 37.5mg Take 1 tablet by mouth in the morning. [facility] phentermine 37.5 mg tablet 3-0 03-12 00:00: 00 Yes 37.5mg Take 1 tablet by mouth in the morning. [facility] phentermine 37.5 mg tablet 3-0 03-12 00:00: 00 Yes 37.5mg Take 1 tablet by mouth in the morning. [facility] phentermine 37.5 mg tablet 3-0 03-12 00:00: 00 Yes 37.5mg Take 1 tablet by mouth in the morning. [facility] phentermine 37.5 mg tablet 3-0 03-12 00:00: 00 Yes 37.5mg Take 1 tablet by mouth in the morning. [facility] phentermine 37.5 mg tablet 3-0 03-12 00:00: 00 Yes 37.5mg Take 1 tablet by mouth in the morning. [facility] phentermine 37.5 mg tablet 3-0 03-12 00:00: 00 Yes 37.5mg Take 1 tablet by mouth in the morning. [facility] phentermine 37.5 mg tablet 3-0 03-12 00:00: 00 Yes 37.5mg Take 1 tablet by mouth in the morning. [facility] phentermine 37.5 mg tablet 3-0 03-12 00:00: 00 Yes 37.5mg Take 1 tablet by mouth in the morning. [facility] phentermine 37.5 mg tablet 3-0 03-12 00:00: 00 Yes 37.5mg Take 1 tablet by mouth in the morning. [facility] phentermine 37.5 mg tablet 2023-0 9-22 00:00: 00 Yes 37.5mg Take 1 tablet by mouth in the morning. [facility] phentermine 37.5 mg tablet 3-0 9- 00:00: 00 Yes 37.5mg Take 1 tablet by mouth in the morning. [facility] phentermine 37.5 mg tablet 3-0 9-22 00:00: 00 Yes 37.5mg Take 1 tablet by mouth in the morning. [facility] phentermine 37.5 mg tablet 3-0 9-22 00:00: 00 Yes 37.5mg Take 1 tablet by mouth in the morning. [facility] phentermine 37.5 mg tablet 3-0 - 00:00: 00 Yes 37.5mg Take 1 tablet by mouth in the morning. [facility] phentermine 37.5 mg tablet 3-0 - 00:00: 00 Yes 37.5mg Take 1 tablet by mouth in the morning. [facility] phentermine 37.5 mg tablet 3-0 - 00:00: 00 Yes 37.5mg Take 1 tablet by mouth in the morning. [facility] phentermine 37.5 mg tablet 3-0 - 00:00: 00 Yes 37.5mg Take 1 tablet by mouth in the morning. [facility] phentermine 37.5 mg tablet 3-0 -22 00:00: 00 Yes 37.5mg Take 1 tablet by mouth in the morning. [facility] phentermine 37.5 mg tablet 3-0 9-22 00:00: 00 Yes 37.5mg Take 1 tablet by mouth in the morning. [facility] phentermine 37.5 mg tablet 3-0 9-22 00:00: 00 Yes 37.5mg Take 1 tablet by mouth in the morning. [facility] phentermine 37.5 mg tablet 2023-0 9-22 00:00: 00 Yes 37.5mg Take 1 tablet by mouth in the morning. [facility] phentermine 37.5 mg tablet 2023-0 9-22 00:00: 00 Yes 37.5mg Take 1 tablet by mouth in the morning. [facility] phentermine 37.5 mg tablet 2022-0 03-12 00:00: 00 Yes 37.5mg Take 1 tablet by mouth in the morning. [facility] phentermine 37.5 mg tablet 2022-0 03-12 00:00: 00 Yes 37.5mg Take 1 tablet by mouth in the morning. [facility] phentermine 37.5 mg tablet 3-0 03-12 00:00: 00 Yes 37.5mg Take 1 tablet by mouth in the morning. [facility] phentermine 37.5 mg tablet 3-0 03-12 00:00: 00 Yes 37.5mg Take 1 tablet by mouth in the morning. [facility] phentermine 37.5 mg tablet 2022-0 03-12 00:00: 00 Yes 37.5mg Take 1 tablet by mouth in the morning. [facility] phentermine 37.5 mg tablet 2022-0 03-12 00:00: 00 Yes 37.5mg Take 1 tablet by mouth in the morning. [facility] phentermine 37.5 mg tablet 2022-0 03-12 00:00: 00 Yes 37.5mg Take 1 tablet by mouth in the morning. [facility] phentermine 37.5 mg tablet 2022-0 03-12 00:00: 00 Yes 37.5mg Take 1 tablet by mouth in the morning. [facility] phentermine 37.5 mg tablet 3-0 03-12 00:00: 00 Yes 37.5mg Take 1 tablet by mouth in the morning. [facility] phentermine 37.5 mg tablet 3-0 03-12 00:00: 00 Yes 37.5mg Take 1 tablet by mouth in the morning. [facility] phentermine 37.5 mg tablet 3-0 03-12 00:00: 00 Yes 37.5mg Take 1 tablet by mouth in the morning. [facility] phentermine 37.5 mg tablet 3-0 03-12 00:00: 00 Yes 37.5mg Take 1 tablet by mouth in the morning. [facility] phentermine 37.5 mg tablet 2023-0 9 00:00: 00 Yes 37.5mg Take 1 tablet by mouth in the morning. [facility] phentermine 37.5 mg tablet 2023-0 03-12 00:00: 00 Yes 37.5mg Take 1 tablet by mouth in the morning. [facility] phentermine 37.5 mg tablet 2023-0 9 00:00: 00 Yes 37.5mg Take 1 tablet by mouth in the morning. [facility] phentermine 37.5 mg tablet 2023-0 03-12 00:00: 00 Yes 37.5mg Take 1 tablet by mouth in the morning. [facility] phentermine 37.5 mg tablet 3-0 03-12 00:00: 00 Yes 37.5mg Take 1 tablet by mouth in the morning. [facility] phentermine 37.5 mg tablet 3-0 03-12 00:00: 00 Yes 37.5mg Take 1 tablet by mouth in the morning. [facility] phentermine 37.5 mg tablet 3-0 03-12 00:00: 00 Yes 37.5mg Take 1 tablet by mouth in the morning. [facility] phentermine 37.5 mg tablet 3-0 03-12 00:00: 00 Yes 37.5mg Take 1 tablet by mouth in the morning. [facility] phentermine 37.5 mg tablet 2023-0 03-12 00:00: 00 Yes 37.5mg Take 1 tablet by mouth in the morning. [facility] phentermine 37.5 mg tablet 2023-0 -22 00:00: 00 Yes 37.5mg Take 1 tablet by mouth in the morning. [facility] phentermine 37.5 mg tablet 3-0 -22 00:00: 00 Yes 37.5mg Take 1 tablet by mouth in the morning. [facility] phentermine 37.5 mg tablet 2023-0 9-22 00:00: 00 Yes 37.5mg Take 1 tablet by mouth in the morning. [facility] phentermine 37.5 mg tablet 0 03-12 00:00: 00 Yes 37.5mg Take 1 tablet by mouth in the morning. [facility] phentermine 37.5 mg tablet 2022-0 03-12 00:00: 00 Yes 37.5mg Take 1 tablet by mouth in the morning. [facility] phentermine 37.5 mg tablet 2022-0 03-12 00:00: 00 Yes 37.5mg Take 1 tablet by mouth in the morning. [facility] phentermine 37.5 mg tablet 2022-0 03-12 00:00: 00 Yes 37.5mg Take 1 tablet by mouth in the morning. [facility] phentermine 37.5 mg tablet 0 03-12 00:00: 00 Yes 37.5mg Take 1 tablet by mouth in the morning. [facility] phentermine 37.5 mg tablet 2022-0 03-12 00:00: 00 Yes 37.5mg Take 1 tablet by mouth in the morning. [facility] norelgestro min-ethinyl estradiol (XULANE) 150-35 mcg/24 hr patch 2022-0 8-14 00:00: 00 Yes [id number] 1{patch } Apply 1 Patch to skin weekly. [facility] norelgestro min-ethinyl estradiol (XULANE) 150-35 mcg/24 hr patch 2022-0 8-14 00:00: 00 Yes [id number] 1{patch } Apply 1 Patch to skin weekly. [facility] norelgestro min-ethinyl estradiol (XULANE) 150-35 mcg/24 hr patch 2022-0 8-14 00:00: 00 Yes [id number] 1{patch } Apply 1 Patch to skin weekly. [facility] norelgestro min-ethinyl estradiol (XULANE) 150-35 mcg/24 hr patch 2022-0 8-14 00:00: 00 Yes [id number] 1{patch } Apply 1 Patch to skin weekly. [facility] norelgestro min-ethinyl estradiol (XULANE) 150-35 mcg/24 hr patch 3-0 8-14 00:00: 00 Yes [id number] 1{patch } Apply 1 Patch to skin weekly. [facility] norelgestro min-ethinyl estradiol (XULANE) 150-35 mcg/24 hr patch 3-0 8-14 00:00: 00 Yes [id number] 1{patch } Apply 1 Patch to skin weekly. [facility] norelgestro min-ethinyl estradiol (XULANE) 150-35 mcg/24 hr patch 3-0 8-14 00:00: 00 Yes [id number] 1{patch } Apply 1 Patch to skin weekly. [facility] norelgestro min-ethinyl estradiol (XULANE) 150-35 mcg/24 hr patch 2022-0 8-14 00:00: 00 Yes [id number] 1{patch } Apply 1 Patch to skin weekly. [facility] norelgestro min-ethinyl estradiol (XULANE) 150-35 mcg/24 hr patch 2022-0 8-14 00:00: 00 Yes [id number] 1{patch } Apply 1 Patch to skin weekly. [facility] norelgestro min-ethinyl estradiol (XULANE) 150-35 mcg/24 hr patch 2022-0 8-14 00:00: 00 Yes [id number] 1{patch } Apply 1 Patch to skin weekly. [facility] norelgestro min-ethinyl estradiol (XULANE) 150-35 mcg/24 hr patch 2022-0 8-14 00:00: 00 Yes [id number] 1{patch } Apply 1 Patch to skin weekly. [facility] norelgestro min-ethinyl estradiol (XULANE) 150-35 mcg/24 hr patch 3-0 8-14 00:00: 00 Yes [id number] 1{patch } Apply 1 Patch to skin weekly. [facility] norelgestro min-ethinyl estradiol (XULANE) 150-35 mcg/24 hr patch 3-0 8-14 00:00: 00 Yes [id number] 1{patch } Apply 1 Patch to skin weekly. [facility] norelgestro min-ethinyl estradiol (XULANE) 150-35 mcg/24 hr patch 3-0 8-14 00:00: 00 Yes [id number] 1{patch } Apply 1 Patch to skin weekly. [facility] norelgestro min-ethinyl estradiol (XULANE) 150-35 mcg/24 hr patch 3-0 8-14 00:00: 00 Yes [id number] 1{patch } Apply 1 Patch to skin weekly. [facility] norelgestro min-ethinyl estradiol (XULANE) 150-35 mcg/24 hr patch 3-0 8-14 00:00: 00 Yes [id number] 1{patch } Apply 1 Patch to skin weekly. [facility] norelgestro min-ethinyl estradiol (XULANE) 150-35 mcg/24 hr patch 3-0 8-14 00:00: 00 Yes [id number] 1{patch } Apply 1 Patch to skin weekly. [facility] norelgestro min-ethinyl estradiol (XULANE) 150-35 mcg/24 hr patch 2022-0 8-14 00:00: 00 Yes [id number] 1{patch } Apply 1 Patch to skin weekly. [facility] norelgestro min-ethinyl estradiol (XULANE) 150-35 mcg/24 hr patch 3-0 8-14 00:00: 00 Yes [id number] 1{patch } Apply 1 Patch to skin weekly. [facility] norelgestro min-ethinyl estradiol (XULANE) 150-35 mcg/24 hr patch 3-0 8-14 00:00: 00 Yes [id number] 1{patch } Apply 1 Patch to skin weekly. [facility] norelgestro min-ethinyl estradiol (XULANE) 150-35 mcg/24 hr patch 3-0 8-14 00:00: 00 Yes [id number] 1{patch } Apply 1 Patch to skin weekly. [facility] norelgestro min-ethinyl estradiol (XULANE) 150-35 mcg/24 hr patch 3-0 8-14 00:00: 00 Yes [id number] 1{patch } Apply 1 Patch to skin weekly. [facility] norelgestro min-ethinyl estradiol (XULANE) 150-35 mcg/24 hr patch 3-0 8-14 00:00: 00 Yes [id number] 1{patch } Apply 1 Patch to skin weekly. [facility] norelgestro min-ethinyl estradiol (XULANE) 150-35 mcg/24 hr patch 3-0 8-14 00:00: 00 Yes [id number] 1{patch } Apply 1 Patch to skin weekly. [facility] norelgestro min-ethinyl estradiol (XULANE) 150-35 mcg/24 hr patch 2022-0 8-14 00:00: 00 Yes [id number] 1{patch } Apply 1 Patch to skin weekly. [facility] norelgestro min-ethinyl estradiol (XULANE) 150-35 mcg/24 hr patch 2022-0 8-14 00:00: 00 Yes [id number] 1{patch } Apply 1 Patch to skin weekly. [facility] norelgestro min-ethinyl estradiol (XULANE) 150-35 mcg/24 hr patch 2022-0 8-14 00:00: 00 Yes [id number] 1{patch } Apply 1 Patch to skin weekly. [facility] norelgestro min-ethinyl estradiol (XULANE) 150-35 mcg/24 hr patch 2022-0 8-14 00:00: 00 Yes [id number] 1{patch } Apply 1 Patch to skin weekly. [facility] norelgestro min-ethinyl estradiol (XULANE) 150-35 mcg/24 hr patch 3-0 8-14 00:00: 00 Yes [id number] 1{patch } Apply 1 Patch to skin weekly. [facility] norelgestro min-ethinyl estradiol (XULANE) 150-35 mcg/24 hr patch 3-0 8-14 00:00: 00 Yes [id number] 1{patch } Apply 1 Patch to skin weekly. [facility] norelgestro min-ethinyl estradiol (XULANE) 150-35 mcg/24 hr patch 3-0 8-14 00:00: 00 Yes [id number] 1{patch } Apply 1 Patch to skin weekly. [facility] norelgestro min-ethinyl estradiol (XULANE) 150-35 mcg/24 hr patch 2022-0 8-14 00:00: 00 Yes [id number] 1{patch } Apply 1 Patch to skin weekly. [facility] norelgestro min-ethinyl estradiol (XULANE) 150-35 mcg/24 hr patch 2022-0 8-14 00:00: 00 Yes [id number] 1{patch } Apply 1 Patch to skin weekly. [facility] norelgestro min-ethinyl estradiol (XULANE) 150-35 mcg/24 hr patch 2022-0 8-14 00:00: 00 Yes [id number] 1{patch } Apply 1 Patch to skin weekly. [facility] norelgestro min-ethinyl estradiol (XULANE) 150-35 mcg/24 hr patch 2022-0 8-14 00:00: 00 Yes [id number] 1{patch } Apply 1 Patch to skin weekly. [facility] norelgestro min-ethinyl estradiol (XULANE) 150-35 mcg/24 hr patch 2022-0 8-14 00:00: 00 Yes [id number] 1{patch } Apply 1 Patch to skin weekly. [facility] norelgestro min-ethinyl estradiol (XULANE) 150-35 mcg/24 hr patch 2022-0 8-14 00:00: 00 Yes [id number] 1{patch } Apply 1 Patch to skin weekly. [facility] norelgestro min-ethinyl estradiol (XULANE) 150-35 mcg/24 hr patch 3-0 8-14 00:00: 00 Yes [id number] 1{patch } Apply 1 Patch to skin weekly. [facility] norelgestro min-ethinyl estradiol (XULANE) 150-35 mcg/24 hr patch 3-0 8-14 00:00: 00 Yes [id number] 1{patch } Apply 1 Patch to skin weekly. [facility] norelgestro min-ethinyl estradiol (XULANE) 150-35 mcg/24 hr patch 2023-0 8-14 00:00: 00 Yes [id number] 1{patch } Apply 1 Patch to skin weekly. [facility] norelgestro min-ethinyl estradiol (XULANE) 150-35 mcg/24 hr patch 2022-0 8-14 00:00: 00 Yes [id number] 1{patch } Apply 1 Patch to skin weekly. [facility] norelgestro min-ethinyl estradiol (XULANE) 150-35 mcg/24 hr patch 2022-0 8-14 00:00: 00 Yes [id number] 1{patch } Apply 1 Patch to skin weekly. [facility] norelgestro min-ethinyl estradiol (XULANE) 150-35 mcg/24 hr patch 2022-0 8-14 00:00: 00 Yes [id number] 1{patch } Apply 1 Patch to skin weekly. [facility] norelgestro min-ethinyl estradiol (XULANE) 150-35 mcg/24 hr patch 2022-0 8-14 00:00: 00 Yes [id number] 1{patch } Apply 1 Patch to skin weekly. [facility] norelgestro min-ethinyl estradiol (XULANE) 150-35 mcg/24 hr patch 2022-0 8-14 00:00: 00 Yes [id number] 1{patch } Apply 1 Patch to skin weekly. [facility] norelgestro min-ethinyl estradiol (XULANE) 150-35 mcg/24 hr patch 2022-0 8-14 00:00: 00 Yes [id number] 1{patch } Apply 1 Patch to skin weekly. [facility] norelgestro min-ethinyl estradiol (XULANE) 150-35 mcg/24 hr patch 3-0 8-14 00:00: 00 Yes [id number] 1{patch } Apply 1 Patch to skin weekly. [facility] norelgestro min-ethinyl estradiol (XULANE) 150-35 mcg/24 hr patch 3-0 8-14 00:00: 00 Yes [id number] 1{patch } Apply 1 Patch to skin weekly. [facility] norelgestro min-ethinyl estradiol (XULANE) 150-35 mcg/24 hr patch 3-0 8-14 00:00: 00 Yes [id number] 1{patch } Apply 1 Patch to skin weekly. [facility] norelgestro min-ethinyl estradiol (XULANE) 150-35 mcg/24 hr patch 3-0 8-14 00:00: 00 Yes [id number] 1{patch } Apply 1 Patch to skin weekly. [facility] norelgestro min-ethinyl estradiol (XULANE) 150-35 mcg/24 hr patch 3-0 8-14 00:00: 00 Yes [id number] 1{patch } Apply 1 Patch to skin weekly. [facility] norelgestro min-ethinyl estradiol (XULANE) 150-35 mcg/24 hr patch 2022-0 8-14 00:00: 00 Yes [id number] 1{patch } Apply 1 Patch to skin weekly. [facility] norelgestro min-ethinyl estradiol (XULANE) 150-35 mcg/24 hr patch 2022-0 8-14 00:00: 00 Yes [id number] 1{patch } Apply 1 Patch to skin weekly. [facility] norelgestro min-ethinyl estradiol (XULANE) 150-35 mcg/24 hr patch 2022-0 8-14 00:00: 00 Yes [id number] 1{patch } Apply 1 Patch to skin weekly. [facility] norelgestro min-ethinyl estradiol (XULANE) 150-35 mcg/24 hr patch 2022-0 8-14 00:00: 00 Yes [id number] 1{patch } Apply 1 Patch to skin weekly. [facility] norelgestro min-ethinyl estradiol (XULANE) 150-35 mcg/24 hr patch 3-0 8-14 00:00: 00 Yes [id number] 1{patch } Apply 1 Patch to skin weekly. [facility] norelgestro min-ethinyl estradiol (XULANE) 150-35 mcg/24 hr patch 3-0 8-14 00:00: 00 Yes [id number] 1{patch } Apply 1 Patch to skin weekly. [facility] norelgestro min-ethinyl estradiol (XULANE) 150-35 mcg/24 hr patch 3-0 8-14 00:00: 00 Yes [id number] 1{patch } Apply 1 Patch to skin weekly. [facility] norelgestro min-ethinyl estradiol (XULANE) 150-35 mcg/24 hr patch 3-0 8-14 00:00: 00 Yes [id number] 1{patch } Apply 1 Patch to skin weekly. [facility] norelgestro min-ethinyl estradiol (XULANE) 150-35 mcg/24 hr patch 3-0 8-14 00:00: 00 Yes [id number] 1{patch } Apply 1 Patch to skin weekly. [facility] norelgestro min-ethinyl estradiol (XULANE) 150-35 mcg/24 hr patch 3-0 8-14 00:00: 00 Yes [id number] 1{patch } Apply 1 Patch to skin weekly. [facility] norelgestro min-ethinyl estradiol (XULANE) 150-35 mcg/24 hr patch 2022-0 8-14 00:00: 00 Yes [id number] 1{patch } Apply 1 Patch to skin weekly. [facility] norelgestro min-ethinyl estradiol (XULANE) 150-35 mcg/24 hr patch 3-0 8-14 00:00: 00 Yes [id number] 1{patch } Apply 1 Patch to skin weekly. [facility] norelgestro min-ethinyl estradiol (XULANE) 150-35 mcg/24 hr patch 3-0 8-14 00:00: 00 Yes [id number] 1{patch } Apply 1 Patch to skin weekly. [facility] norelgestro min-ethinyl estradiol (XULANE) 150-35 mcg/24 hr patch 3-0 8-14 00:00: 00 Yes [id number] 1{patch } Apply 1 Patch to skin weekly. [facility] norelgestro min-ethinyl estradiol (XULANE) 150-35 mcg/24 hr patch 3-0 8-14 00:00: 00 Yes [id number] 1{patch } Apply 1 Patch to skin weekly. [facility] norelgestro min-ethinyl estradiol (XULANE) 150-35 mcg/24 hr patch 3-0 8-14 00:00: 00 Yes [id number] 1{patch } Apply 1 Patch to skin weekly. [facility] norelgestro min-ethinyl estradiol (XULANE) 150-35 mcg/24 hr patch 3-0 8-14 00:00: 00 Yes [id number] 1{patch } Apply 1 Patch to skin weekly. [facility] norelgestro min-ethinyl estradiol (XULANE) 150-35 mcg/24 hr patch 3-0 8-14 00:00: 00 Yes [id number] 1{patch } Apply 1 Patch to skin weekly. [facility] norelgestro min-ethinyl estradiol (XULANE) 150-35 mcg/24 hr patch 3-0 8-14 00:00: 00 Yes [id number] 1{patch } Apply 1 Patch to skin weekly. [facility] norelgestro min-ethinyl estradiol (XULANE) 150-35 mcg/24 hr patch 3-0 8-14 00:00: 00 Yes [id number] 1{patch } Apply 1 Patch to skin weekly. [facility] norelgestro min-ethinyl estradiol (XULANE) 150-35 mcg/24 hr patch 3-0 8-14 00:00: 00 Yes [id number] 1{patch } Apply 1 Patch to skin weekly. [facility] norelgestro min-ethinyl estradiol (XULANE) 150-35 mcg/24 hr patch 3-0 8-14 00:00: 00 Yes [id number] 1{patch } Apply 1 Patch to skin weekly. [facility] norelgestro min-ethinyl estradiol (XULANE) 150-35 mcg/24 hr patch 3-0 8-14 00:00: 00 Yes [id number] 1{patch } Apply 1 Patch to skin weekly. [facility] norelgestro min-ethinyl estradiol (XULANE) 150-35 mcg/24 hr patch 3-0 8-14 00:00: 00 Yes [id number] 1{patch } Apply 1 Patch to skin weekly. [facility] norelgestro min-ethinyl estradiol (XULANE) 150-35 mcg/24 hr patch 3-0 8-14 00:00: 00 Yes [id number] 1{patch } Apply 1 Patch to skin weekly. [facility] norelgestro min-ethinyl estradiol (XULANE) 150-35 mcg/24 hr patch 2022-0 8-14 00:00: 00 Yes [id number] 1{patch } Apply 1 Patch to skin weekly. [facility] norelgestro min-ethinyl estradiol (XULANE) 150-35 mcg/24 hr patch 2022-0 8-14 00:00: 00 Yes [id number] 1{patch } Apply 1 Patch to skin weekly. [facility] norelgestro min-ethinyl estradiol (XULANE) 150-35 mcg/24 hr patch 2022-0 8-14 00:00: 00 Yes [id number] 1{patch } Apply 1 Patch to skin weekly. [facility] norelgestro min-ethinyl estradiol (XULANE) 150-35 mcg/24 hr patch 2022-0 8-14 00:00: 00 Yes [id number] 1{patch } Apply 1 Patch to skin weekly. [facility] norelgestro min-ethinyl estradiol (XULANE) 150-35 mcg/24 hr patch 2022-0 8-14 00:00: 00 Yes [id number] 1{patch } Apply 1 Patch to skin weekly. [facility] norelgestro min-ethinyl estradiol (XULANE) 150-35 mcg/24 hr patch 3-0 8-14 00:00: 00 Yes [id number] 1{patch } Apply 1 Patch to skin weekly. [facility] norelgestro min-ethinyl estradiol (XULANE) 150-35 mcg/24 hr patch 3-0 8-14 00:00: 00 Yes [id number] 1{patch } Apply 1 Patch to skin weekly. [facility] norelgestro min-ethinyl estradiol (XULANE) 150-35 mcg/24 hr patch 3-0 8-14 00:00: 00 Yes [id number] 1{patch } Apply 1 Patch to skin weekly. [facility] norelgestro min-ethinyl estradiol (XULANE) 150-35 mcg/24 hr patch 3-0 8-14 00:00: 00 Yes [id number] 1{patch } Apply 1 Patch to skin weekly. [facility] norelgestro min-ethinyl estradiol (XULANE) 150-35 mcg/24 hr patch 3-0 8-14 00:00: 00 Yes [id number] 1{patch } Apply 1 Patch to skin weekly. [facility] norelgestro min-ethinyl estradiol (XULANE) 150-35 mcg/24 hr patch 2022-0 8-14 00:00: 00 Yes [id number] 1{patch } Apply 1 Patch to skin weekly. [facility] norelgestro min-ethinyl estradiol (XULANE) 150-35 mcg/24 hr patch 2022-0 8-14 00:00: 00 Yes [id number] 1{patch } Apply 1 Patch to skin weekly. [facility] norelgestro min-ethinyl estradiol (XULANE) 150-35 mcg/24 hr patch 2022-0 8-14 00:00: 00 Yes [id number] 1{patch } Apply 1 Patch to skin weekly. [facility] norelgestro min-ethinyl estradiol (XULANE) 150-35 mcg/24 hr patch 2022-0 8-14 00:00: 00 Yes [id number] 1{patch } Apply 1 Patch to skin weekly. [facility] norelgestro min-ethinyl estradiol (XULANE) 150-35 mcg/24 hr patch 3-0 8-14 00:00: 00 Yes [id number] 1{patch } Apply 1 Patch to skin weekly. [facility] norelgestro min-ethinyl estradiol (XULANE) 150-35 mcg/24 hr patch 3-0 8-14 00:00: 00 Yes [id number] 1{patch } Apply 1 Patch to skin weekly. [facility] norelgestro min-ethinyl estradiol (XULANE) 150-35 mcg/24 hr patch 3-0 8-14 00:00: 00 Yes [id number] 1{patch } Apply 1 Patch to skin weekly. [facility] norelgestro min-ethinyl estradiol (XULANE) 150-35 mcg/24 hr patch 3-0 8-14 00:00: 00 Yes [id number] 1{patch } Apply 1 Patch to skin weekly. [facility] norelgestro min-ethinyl estradiol (XULANE) 150-35 mcg/24 hr patch 3-0 8-14 00:00: 00 Yes [id number] 1{patch } Apply 1 Patch to skin weekly. [facility] norelgestro min-ethinyl estradiol (XULANE) 150-35 mcg/24 hr patch 3-0 8-14 00:00: 00 Yes [id number] 1{patch } Apply 1 Patch to skin weekly. [facility] norelgestro min-ethinyl estradiol (XULANE) 150-35 mcg/24 hr patch 2022-0 8-14 00:00: 00 Yes [id number] 1{patch } Apply 1 Patch to skin weekly. [facility] norelgestro min-ethinyl estradiol (XULANE) 150-35 mcg/24 hr patch 3-0 8-14 00:00: 00 Yes [id number] 1{patch } Apply 1 Patch to skin weekly. [facility] norelgestro min-ethinyl estradiol (XULANE) 150-35 mcg/24 hr patch 3-0 8-14 00:00: 00 Yes [id number] 1{patch } Apply 1 Patch to skin weekly. [facility] norelgestro min-ethinyl estradiol (XULANE) 150-35 mcg/24 hr patch 3-0 8-14 00:00: 00 Yes [id number] 1{patch } Apply 1 Patch to skin weekly. [facility] norelgestro min-ethinyl estradiol (XULANE) 150-35 mcg/24 hr patch 3-0 8-14 00:00: 00 Yes [id number] 1{patch } Apply 1 Patch to skin weekly. [facility] norelgestro min-ethinyl estradiol (XULANE) 150-35 mcg/24 hr patch 14 00:00: 00 Yes [id number] 1{patch } Apply 1 Patch to skin weekly. [facility] ondansetron (ZOFRAN (PF)) injection 4 mg 01-26 02:45: 00 01-26 02:53 :00 No 4mg 4 mg, Slow IV Push, ONCE, 1 dose, On Wed01/25/23 at 2145, DOUGLAS [facility] morpHINE (4 mg/mL) injection 4 mg 01-26 02:45: 00 01-26 02:53 :00 No 4mg 4 mg, Slow IV Push, ONCE, 1 dose, On Wed01/25/23 at 2145, STAT [facility] gabapentin (NEURONTIN) capsule 300 mg 01-09 15:00: 00 Yes 300mg 300 mg, Oral, TID, First dose on 01/09/23 at 1000, Until Discontinu ed, Routine [facility] gabapentin (NEURONTIN) capsule 300 mg 01-09 15:00: 00 01-10 00:39 :29 No 300mg 300 mg, Oral, TID, First dose on 01/09/23 at 1000, Until Discontinu ed, Routine [facility] ibuprofen (IBU) tablet 600 mg 01-09 13:45: 00 Yes 600mg 600 mg, Oral, Q6H, First dose (after last modificati on) on 01/09/23 at 0845, Until Discontinu ed, Routine [facility] ibuprofen (IBU) tablet 600 mg 01-09 13:45: 00 01-10 00:39 :29 No 600mg 600 mg, Oral, Q6H, First dose (after last modificati on) on 01/09/23 at 0845, Until Discontinu ed, Routine [facility] oxyCODONE immediate release tablet 5 mg 01-09 07:00: 00 01-09 06:30 :00 No 5mg 5 mg, Oral, ONCE, 1 dose, On 01/09/23 at 0200, Routine
service member approving [facility] oxyCODONE immediate release tablet 5 mg 01-09 07:00: 00 01-09 06:30 :00 No 5mg 5 mg, Oral, ONCE, 1 dose, On 01/09/23 at 0200, Routine
service member approving [facility] proMETHazin e (PHENERGAN) 25 mg in NaCl 0.9% (NS) 50 mL IV piggyback 01-09 06:04: 38 Yes 25mg 25 mg, IV Piggyback, Q4HPRN, Starting on 01/09/23 at 0104, Until Discontinu ed, Routine, Nausea and Vomiting (N/V) [facility] proMETHazin e (PHENERGAN) 25 mg in NaCl 0.9% (NS) 50 mL IV piggyback 01-09 06:04: 38 01-10 00:39 :29 No 25mg 25 mg, IV Piggyback, Q4HPRN, Starting on 01/09/23 at 0104, Until 01/09/23 at 1939, Routine, Nausea and Vomiting (N/V) [facility] lactated ringers IV infusion 1,000 mL 01-09 05:45: 00 Yes 1000mL at 100 mL/hr, 1,000 mL, IV Infusion, CONTINUOUS , Starting on 01/09/23 at 0045, Until Discontinu ed, Routine, PACU [facility] lactated ringers IV infusion 1,000 mL 01-09 05:45: 00 01-10 00:39 :29 No 1000mL at 100 mL/hr, 1,000 mL, IV Infusion, CONTINUOUS , Starting on 01/09/23 at 0045, Until 01/09/23 at 1939, Routine, PACU [facility] ondansetron (ZOFRAN (PF)) injection 4 mg 01-09 05:40: 11 Yes 4mg 4 mg, Slow IV Push, Q6HPRN, Starting on 01/09/23 at 0040, Until Discontinu ed, Routine, Nausea and Vomiting (N/V) [facility] ondansetron (ZOFRAN (PF)) injection 4 mg 01-09 05:40: 11 01-10 00:39 :29 No 4mg 4 mg, Slow IV Push, Q6HPRN, Starting on 01/09/23 at 0040, Until 01/09/23 at 1939, Routine, Nausea and Vomiting (N/V) [facility] FENTanyl PF (SUBLIMAZE (PF)) injection 25 mcg 01-09 04:09: 38 01-09 04:36 :00 No 25ug 25 mcg, Slow IV Push, Q5MIN PRN, 4 doses, Starting on Wed01/08/23 at 2309, Until Wed01/08/23 at 2336, Routine, Pain (scale 4-6), PACU [facility] HYDROmorphO ne (DILAUDID) injection 0.2 mg 01-09 04:09: 38 01-09 05:30 :19 No .2mg 0.2 mg, Slow IV Push, Q5MIN PRN, 10 doses, Starting on Wed01/08/23 at 2309, Until 01/09/23 at 0030, Routine, Pain (scale 7-10), PACU
Us e approved by (Faculty): PACU USE -ANESTHESI A SERVICE-HY DROMORPHON E INJECTIONS [facility] FENTanyl PF (SUBLIMAZE (PF)) injection 25 mcg 01-09 04:09: 38 01-09 04:36 :00 No 25ug 25 mcg, Slow IV Push, Q5MIN PRN, 4 doses, Starting on Wed01/08/23 at 2309, Until Wed01/08/23 at 2336, Routine, Pain (scale 4-6), PACU [facility] HYDROmorphO ne (DILAUDID) injection 0.2 mg 01-09 04:09: 38 01-09 05:30 :19 No .2mg 0.2 mg, Slow IV Push, Q5MIN PRN, 10 doses, Starting on Wed01/08/23 at 2309, Until 01/09/23 at 0030, Routine, Pain (scale 7-10), PACU
Us e approved by (Faculty): PACU USE -ANESTHESI A SERVICE-HY DROMORPHON E INJECTIONS [facility] HYDROcodone -acetaminop hen (NORCO 5) 5-325 mg tablet 2 tablet 01-09 04:05: 17 Yes 2{tbl} 2 tablet, Oral, Q6HPRN, Starting on Wed01/08/23 at 2305, Until Discontinu ed, Routine, Pain (scale 7-10) [facility] HYDROcodone -acetaminop hen (NORCO 5) 5-325 mg tablet 2 tablet 01-09 04:05: 17 01-10 00:39 :29 No 2{tbl} 2 tablet, Oral, Q6HPRN, Starting on Wed01/08/23 at 2305, Until 01/09/23 at 1939, Routine, Pain (scale 7-10) [facility] bupivacaine (preserv free) (SENSORCAIN E MPF) 0.25 % (2.5 mg/mL) injection 01-09 02:15: 00 Yes PRN, Starting on Wed01/08/23 at 2114, Until Discontinu ed, Routine, Intra-op [facility] bupivacaine (preserv free) (SENSORCAIN E MPF) 0.25 % (2.5 mg/mL) injection 01-09 02:15: 00 01-10 00:39 :29 No PRN, Starting on Wed01/08/23 at 2115, Until 01/09/23 at 1939, Routine, Intra-op [facility] sodium chloride 0.9 % irrigation solution 01-09 00:50: 00 Yes PRN, Starting on Wed01/08/23 at 1950, Until Discontinu ed, Intra-op [facility] sodium chloride 0.9 % irrigation solution 01-09 00:50: 00 01-10 00:39 :29 No PRN, Starting on Wed01/08/23 at 1950, Until Wed01/09/23 at 1939, Intra-op [facility] doxycycline hyclate (Vibramycin ) capsule 100 mg 01-09 00:03: 01-09 00:14 :00 No 100mg 100 mg, Oral, O.R. HOLDING ONCE, 1 dose, Starting on Wed01/08/23 at 1903, Until Wed01/08/23 at 1914, DOUGLAS, Surgery/Pr ocedure
Reason for Anti-Infec tive: Surgical Prophylaxi s
Surgi kavon Prophylaxi s: [employer]
Duration of therapy: within 24 hours of surgery [facility] doxycycline hyclate (Vibramycin ) capsule 100 mg 01-09 00:03: 07 01-09 00:14 :00 No 100mg 100 mg, Oral, O.R. HOLDING ONCE, 1 dose, Starting on Wed01/08/23 at 1903, Until Wed01/08/23 at 1914, DOUGLAS, Surgery/Pr ocedure
Reason for Anti-Infec tive: Surgical Prophylaxi s
Surgi kavon Prophylaxi s: [employer]
Duration of therapy: within 24 hours of surgery [facility] ibuprofen 800 mg tablet 01-09 00:00: 00 Yes [id number] 800mg Take 1 tablet by mouth every 8 (eight) hours as needed (Pain). [facility] HYDROcodone -acetaminop hen 5-325 mg tablet 01-09 00:00: 00 Yes [id number] 1{tbl} Take 1 tablet by mouth every 6 (six) hours as needed (Pain). Indication s: acute pain [facility] ibuprofen 800 mg tablet 01-09 00:00: 00 Yes [id number] 800mg Take 1 tablet by mouth every 8 (eight) hours as needed (Pain). [facility] HYDROcodone -acetaminop hen 5-325 mg tablet 01-09 00:00: 00 Yes [id number] 1{tbl} Take 1 tablet by mouth every 6 (six) hours as needed (Pain). Indication s: acute pain [facility] ibuprofen 800 mg tablet 3-0 01-09 00:00: 00 Yes [id number] 800mg Take 1 tablet by mouth every 8 (eight) hours as needed (Pain). [facility] HYDRO[facility]one -acetaminop hen 5-325 mg tablet 2022-0 01-09 00:00: 00 Yes [id number] 1{tbl} Take 1 tablet by mouth every 6 (six) hours as needed (Pain). Indication [facility]: [facility] mg tablet 2022-0 01-09 00:00: 00 Yes [id number] 800mg Take 1 tablet by mouth every 8 (eight) hours as needed (Pain). [facility] HYDROcodone -acetaminop hen 5-325 mg tablet 2022-0 01-09 00:00: 00 Yes [id number] 1{tbl} Take 1 tablet by mouth every 6 (six) hours as needed (Pain). Indication [facility]: [facility] tablet 2022-0 01-09 00:00: 00 Yes [id number] 800mg Take 1 tablet by mouth every 8 (eight) hours as needed (Pain). [facility] HYDROcodone -acetaminop hen 5-325 mg tablet 2022-0 01-09 00:00: 00 Yes [id number] 1{tbl} Take 1 tablet by mouth every 6 (six) hours as needed (Pain). Indication [facility]: [facility] mg tablet 2022-0 01-09 00:00: 00 Yes [id number] 800mg Take 1 tablet by mouth every 8 (eight) hours as needed (Pain). [facility] HYDROcodone -acetaminop hen 5-325 mg tablet 2022-0 01-09 00:00: 00 Yes [id number] 1{tbl} Take 1 tablet by mouth every 6 (six) hours as needed (Pain). Indication [facility]: [facility] mg tablet 3-0 01-09 00:00: 00 Yes [id number] 800mg Take 1 tablet by mouth every 8 (eight) hours as needed (Pain). [facility] HYDROcodone -acetaminop hen 5-325 mg tablet 2022-0 01-09 00:00: 00 Yes [id number] 1{tbl} Take 1 tablet by mouth every 6 (six) hours as needed (Pain). Indication s: acute pain [facility] ibuprofen 800 mg tablet 2022-0 01-09 00:00: 00 Yes [id number] 800mg Take 1 tablet by mouth every 8 (eight) hours as needed (Pain). [facility] HYDROcodone -acetaminop hen 5-325 mg tablet 2022-0 01-09 00:00: 00 Yes [id number] 1{tbl} Take 1 tablet by mouth every 6 (six) hours as needed (Pain). Indication s: acute pain [facility] ibuprofen 800 mg tablet 2022-0 01-09 00:00: 00 Yes [id number] 800mg Take 1 tablet by mouth every 8 (eight) hours as needed (Pain). [facility] HYDROcodone -acetaminop hen 5-325 mg tablet 2022-0 01-09 00:00: 00 Yes [id number] 1{tbl} Take 1 tablet by mouth every 6 (six) hours as needed (Pain). Indication s: acute pain [facility] ibuprofen 800 mg tablet 0 01-09 00:00: 00 Yes [id number] 800mg Take 1 tablet by mouth every 8 (eight) hours as needed (Pain). [facility] HYDROcodone -acetaminop hen 5-325 mg tablet 2022-0 01-09 00:00: 00 Yes [id number] 1{tbl} Take 1 tablet by mouth every 6 (six) hours as needed (Pain). Indication s: acute pain [facility] ibuprofen 800 mg tablet 3-0 01-09 00:00: 00 Yes [id number] 800mg Take 1 tablet by mouth every 8 (eight) hours as needed (Pain). [facility] HYDROcodone -acetaminop hen 5-325 mg tablet 2022-0 01-09 00:00: 00 Yes [id number] 1{tbl} Take 1 tablet by mouth every 6 (six) hours as needed (Pain). Indication s: acute pain [facility] ibuprofen 800 mg tablet 3-0 01-09 00:00: 00 Yes [id number] 800mg Take 1 tablet by mouth every 8 (eight) hours as needed (Pain). [facility] HYDR[facility]one -acetaminop hen 5-325 mg tablet 3-0 01-09 00:00: 00 Yes 4647 1{tbl} Take 1 tablet by mouth every 6 (six) hours as needed (Pain). Indication s: [facility] mg tablet 3-0 01-09 00:00: 00 Yes [id number] 800mg Take 1 tablet by mouth every 8 (eight) hours as needed (Pain). [facility] HYDROcodone -acetaminop hen 5-325 mg tablet 2022-0 01-09 00:00: 00 Yes 4647 1{tbl} Take 1 tablet by mouth every 6 (six) hours as needed (Pain). Indication s: acute pain [facility] ibuprofen 800 mg tablet 3-0 01-09 00:00: 00 Yes [id number] 800mg Take 1 tablet by mouth every 8 (eight) hours as needed (Pain). [facility] HYDROcodone -acetaminop hen 5-325 mg tablet 2022-0 01-09 00:00: 00 Yes 4647 1{tbl} Take 1 tablet by mouth every 6 (six) hours as needed (Pain). Indication s: acute pain [facility] ibuprofen 800 mg tablet 3-0 01-09 00:00: 00 Yes [id number] 800mg Take 1 tablet by mouth every 8 (eight) hours as needed (Pain). [facility] HYDROcodone -acetaminop hen 5-325 mg tablet 3-0 01-09 00:00: 00 Yes 4647 1{tbl} Take 1 tablet by mouth every 6 (six) hours as needed (Pain). Indication s: acute pain [facility] ibuprofen 800 mg tablet 3-0 -22 00:00: 00 Yes [id number] 800mg Take 1 tablet by mouth every 8 (eight) hours as needed (Pain). [facility] HYDROcodone -acetaminop hen 5-325 mg tablet 3-0 01-09 00:00: 00 Yes 4647 1{tbl} Take 1 tablet by mouth every 6 (six) hours as needed (Pain). Indication s: acute pain [facility] ibuprofen 800 mg tablet 2022-0 01-09 00:00: 00 Yes [id number] 800mg Take 1 tablet by mouth every 8 (eight) hours as needed (Pain). [facility] HYDROcodone -acetaminop hen 5-325 mg tablet 2022-0 01-09 00:00: 00 Yes [id number] 1{tbl} Take 1 tablet by mouth every 6 (six) hours as needed (Pain). Indication s: acute pain [facility] ibuprofen 800 mg tablet 2022-0 01-09 00:00: 00 Yes [id number] 800mg Take 1 tablet by mouth every 8 (eight) hours as needed (Pain). [facility] HYDROcodone -acetaminop hen 5-325 mg tablet 2022-0 01-09 00:00: 00 Yes [id number] 1{tbl} Take 1 tablet by mouth every 6 (six) hours as needed (Pain). Indication s: acute pain [facility] ibuprofen 800 mg tablet 2022-0 01-09 00:00: 00 Yes [id number] 800mg Take 1 tablet by mouth every 8 (eight) hours as needed (Pain). [facility] HYDROcodone -acetaminop hen 5-325 mg tablet 2022-0 01-09 00:00: 00 Yes [id number] 1{tbl} Take 1 tablet by mouth every 6 (six) hours as needed (Pain). Indication s: acute pain [facility] ibuprofen 800 mg tablet 2022-0 01-09 00:00: 00 Yes [id number] 800mg Take 1 tablet by mouth every 8 (eight) hours as needed (Pain). [facility] ibuprofen 800 mg tablet 3-0 01-09 00:00: 00 Yes [id number] 800mg Take 1 tablet by mouth every 8 (eight) hours as needed (Pain). [facility] ibuprofen 800 mg tablet 3-0 01-09 00:00: 00 Yes [id number] 800mg Take 1 tablet by mouth every 8 (eight) hours as needed (Pain). [facility] ibuprofen 800 mg tablet 3-0 22 00:00: 00 Yes [id number] 800mg Take 1 tablet by mouth every 8 (eight) hours as needed (Pain). [facility] ibuprofen 800 mg tablet 3-0 -22 00:00: 00 Yes [id number] 800mg Take 1 tablet by mouth every 8 (eight) hours as needed (Pain). [facility] mg tablet 3-0 22 00:00: 00 Yes [id number] 800mg Take 1 tablet by mouth every 8 (eight) hours as needed (Pain). [facility] 800 mg tablet 3-0 22 00:00: 00 Yes [id number] 800mg Take 1 tablet by mouth every 8 (eight) hours as needed (Pain). [facility] ibuprofen 800 mg tablet 3-0 22 00:00: 00 Yes [id number] 800mg Take 1 tablet by mouth every 8 (eight) hours as needed (Pain). [facility] ibuprofen 800 mg tablet 3-0 22 00:00: 00 Yes [id number] 800mg Take 1 tablet by mouth every 8 (eight) hours as needed (Pain). [facility] ibuprofen 800 mg tablet 3-0 22 00:00: 00 Yes [id number] 800mg Take 1 tablet by mouth every 8 (eight) hours as needed (Pain). [facility] ibuprofen 800 mg tablet 3-0 22 00:00: 00 Yes [id number] 800mg Take 1 tablet by mouth every 8 (eight) hours as needed (Pain). [facility] ib[facility] mg tablet 3-0 -22 00:00: 00 Yes [id number] 800mg Take 1 tablet by mouth every 8 (eight) hours as needed (Pain). [facility] mg tablet 3-0 7-22 00:00: 00 Yes [id number] 800mg Take 1 tablet by mouth every 8 (eight) hours as needed (Pain). [facility]fen [facility] mg tablet 3-0 7-22 00:00: 00 Yes [id number] 800mg Take 1 tablet by mouth every 8 (eight) hours as needed (Pain). [facility] ibuprofen 800 mg tablet 0 01-09 00:00: 00 Yes [id number] 800mg Take 1 tablet by mouth every 8 (eight) hours as needed (Pain). [facility] ib[facility] mg tablet 0 01-09 00:00: 00 Yes [id number] 800mg Take 1 tablet by mouth every 8 (eight) hours as needed (Pain). [facility] mg tablet 0 01-09 00:00: 00 Yes [id number] 800mg Take 1 tablet by mouth every 8 (eight) hours as needed (Pain). [facility] ibuprofen 800 mg tablet 0 01-09 00:00: 00 Yes [id number] 800mg Take 1 tablet by mouth every 8 (eight) hours as needed (Pain). [facility] ibuprofen 800 mg tablet 0 01-09 00:00: 00 Yes [id number] 800mg Take 1 tablet by mouth every 8 (eight) hours as needed (Pain). [facility] ibuprofen 800 mg tablet 01-09 00:00: 00 Yes [id number] 800mg Take 1 tablet by mouth every 8 (eight) hours as needed (Pain). [facility] ibuprofen 800 mg tablet 01-09 00:00: 00 04-27 00:00 :00 No [id number] 800mg Take 1 tablet by mouth every 8 (eight) hours as needed (Pain). [facility] ibuprofen 800 mg tablet 01-09 00:00: 00 04-27 00:00 :00 No [id number] 800mg Take 1 tablet by mouth every 8 (eight) hours as needed (Pain). [facility] HYDROcodone -acetaminop hen 5-325 mg tablet 01-09 00:00: 00 04-07 00:00 :00 No 4647 1{tbl} Take 1 tablet by mouth every 6 (six) hours as needed (Pain). Indication s: acute pain [facility] HYDROcodone -acetaminop hen 5-325 mg tablet 01-09 00:00: 00 04-07 00:00 :00 No 4647 1{tbl} Take 1 tablet by mouth every 6 (six) hours as needed (Pain). Indication s: acute pain [facility] NaCl 0.9% (NS) IV infusion 1,000 mL 01-08 20:15: 00 01-09 05:41 :08 No 1000mL at 150 mL/hr, Intravenou s, CONTINUOUS , Starting on Wed01/08/23 at 1515, Until 01/09/23 at 0041, DOUGLAS [facility] NaCl 0.9% (NS) IV infusion 1,000 mL 01-08 20:15: 00 01-09 05:41 :08 No 1000mL at 150 mL/hr, Intravenou s, CONTINUOUS , Starting on Wed01/08/23 at 1515, Until 01/09/23 at 0041, DOUGLAS [facility] FENTanyl PF (SUBLIMAZE (PF)) injection 25 mcg 01-08 20:00: 00 01-08 19:18 :00 No 25ug 25 mcg, Slow IV Push, ONCE, 1 dose, On Wed01/08/23 at 1500, Routine [facility] FENTanyl PF (SUBLIMAZE (PF)) injection 25 mcg 01-08 20:00: 00 01-08 19:18 :00 No 25ug 25 mcg, Slow IV Push, ONCE, 1 dose, On Wed01/08/23 at 1500, Routine [facility] diphenhydrA MINE (BENADRYL) injection 25 mg 01-08 16:53: 00 01-08 16:46 :00 No 25mg 25 mg, Slow IV Push, ONCE, 1 dose, On Wed01/08/23 at 1200, STAT [facility] diphenhydrA MINE (BENADRYL) injection 25 mg 01-08 16:53: 00 01-08 16:46 :00 No 25mg 25 mg, Slow IV Push, ONCE, 1 dose, On Wed01/08/23 at 1200, STAT [facility] NaCl 0.9% (NS) bolus infusion 1,000 mL 01-08 16:45: 00 01-08 19:12 :00 No 1000mL at 999 mL/hr, 1,000 mL, IV Infusion, ONCE, 1 dose, On Wed01/08/23 at 1145, [facility] NaCl 0.9% (NS) bolus infusion 1,000 mL 01-08 16:45: 00 01-08 19:12 :00 No 1000mL at 999 mL/hr, 1,000 mL, IV Infusion, ONCE, 1 dose, On Wed01/08/23 at 1145, [facility] morpHINE (4 mg/mL) injection 4 mg 01-08 16:00: 00 01-08 16:43 :00 No 4mg 4 mg, Slow IV Push, ONCE, 1 dose, On Wed01/08/23 at 1100, [facility] ondansetron (ZOFRAN (PF)) injection 4 mg 01-08 16:00: 00 01-08 16:43 :00 No 4mg 4 mg, Slow IV Push, ONCE, 1 dose, On Wed01/08/23 at 1100, [facility] morpHINE (4 mg/mL) injection 4 mg 01-08 16:00: 00 01-08 16:43 :00 No 4mg 4 mg, Slow IV Push, ONCE, 1 dose, On Wed01/08/23 at 1100, [facility] ondansetron (ZOFRAN (PF)) injection 4 mg 01-08 16:00: 00 01-08 16:43 :00 No 4mg 4 mg, Slow IV Push, ONCE, 1 dose, On Wed01/08/23 at 1100, [facility] NaCl 0.9% (NS) bolus infusion 1,000 mL 01-02 04:45: 00 01-02 05:51 :00 No 1000mL at 999 mL/hr, 1,000 mL, IV Piggyback, ONCE, 1 dose, On Wed01/01/23 at 2345, [facility] ondansetron 4 mg disintegrat ing tablet 0 7-15 00:00: 00 Yes [id number] 4mg Take 1 tablet by mouth every 12 (twelve) hours as needed for Nausea and Vomiting (N/V). [facility] ondansetron 4 mg disintegrat ing tablet 2022-0 7-15 00:00: 00 Yes [id number] 4mg Take 1 tablet by mouth every 12 (twelve) hours as needed for Nausea and Vomiting (N/V). [facility] ondansetron 4 mg disintegrat ing tablet 2022-0 -15 00:00: 00 Yes [id number] 4mg Take 1 tablet by mouth every 12 (twelve) hours as needed for Nausea and Vomiting (N/V). [facility] ondansetron 4 mg disintegrat ing tablet 0 -15 00:00: 00 Yes [id number] 4mg Take 1 tablet by mouth every 12 (twelve) hours as needed for Nausea and Vomiting (N/V). [facility] ondansetron 4 mg disintegrat ing tablet 0 -15 00:00: 00 Yes [id number] 4mg Take 1 tablet by mouth every 12 (twelve) hours as needed for Nausea and Vomiting (N/V). [facility] ondansetron 4 mg disintegrat ing tablet 0 -15 00:00: 00 Yes [id number] 4mg Take 1 tablet by mouth every 12 (twelve) hours as needed for Nausea and Vomiting (N/V). [facility] ondansetron 4 mg disintegrat ing tablet 2022-0 -15 00:00: 00 Yes [id number] 4mg Take 1 tablet by mouth every 12 (twelve) hours as needed for Nausea and Vomiting (N/V). [facility] ondansetron 4 mg disintegrat ing tablet 2022-0 7-15 00:00: 00 Yes [id number] 4mg Take 1 tablet by mouth every 12 (twelve) hours as needed for Nausea and Vomiting (N/V). [facility] ondansetron 4 mg disintegrat ing tablet 3-0 7-15 00:00: 00 Yes [id number] 4mg Take 1 tablet by mouth every 12 (twelve) hours as needed for Nausea and Vomiting (N/V). [facility] ondansetron 4 mg disintegrat ing tablet 3-0 7-15 00:00: 00 Yes [id number] 4mg Take 1 tablet by mouth every 12 (twelve) hours as needed for Nausea and Vomiting (N/V). [facility] ondansetron 4 mg disintegrat ing tablet 3-0 7-15 00:00: 00 Yes [id number] 4mg Take 1 tablet by mouth every 12 (twelve) hours as needed for Nausea and Vomiting (N/V). [facility] ondansetron 4 mg disintegrat ing tablet 3-0 7-15 00:00: 00 Yes [id number] 4mg Take 1 tablet by mouth every 12 (twelve) hours as needed for Nausea and Vomiting (N/V). [facility] ondansetron 4 mg disintegrat ing tablet 3-0 7-15 00:00: 00 Yes [id number] 4mg Take 1 tablet by mouth every 12 (twelve) hours as needed for Nausea and Vomiting (N/V). [facility] ondansetron 4 mg disintegrat ing tablet 3-0 7-15 00:00: 00 Yes [id number] 4mg Take 1 tablet by mouth every 12 (twelve) hours as needed for Nausea and Vomiting (N/V). [facility] ondansetron 4 mg disintegrat ing tablet 3-0 7-15 00:00: 00 Yes [id number] 4mg Take 1 tablet by mouth every 12 (twelve) hours as needed for Nausea and Vomiting (N/V). [facility] ondansetron 4 mg disintegrat ing tablet 3-0 7-15 00:00: 00 Yes [id number] 4mg Take 1 tablet by mouth every 12 (twelve) hours as needed for Nausea and Vomiting (N/V). [facility] ondansetron 4 mg disintegrat ing tablet 3-0 7-15 00:00: 00 Yes [id number] 4mg Take 1 tablet by mouth every 12 (twelve) hours as needed for Nausea and Vomiting (N/V). [facility] ondansetron 4 mg disintegrat ing tablet 2023-0 7-15 00:00: 00 Yes [id number] 4mg Take 1 tablet by mouth every 12 (twelve) hours as needed for Nausea and Vomiting (N/V). [facility] ondansetron 4 mg disintegrat ing tablet 0 -15 00:00: 00 Yes [id number] 4mg Take 1 tablet by mouth every 12 (twelve) hours as needed for Nausea and Vomiting (N/V). [facility] ondansetron 4 mg disintegrat ing tablet 2022-0 -15 00:00: 00 Yes [id number] 4mg Take 1 tablet by mouth every 12 (twelve) hours as needed for Nausea and Vomiting (N/V). [facility] ondansetron 4 mg disintegrat ing tablet 2022-0 -15 00:00: 00 Yes [id number] 4mg Take 1 tablet by mouth every 12 (twelve) hours as needed for Nausea and Vomiting (N/V). [facility] ondansetron 4 mg disintegrat ing tablet 0 -15 00:00: 00 Yes [id number] 4mg Take 1 tablet by mouth every 12 (twelve) hours as needed for Nausea and Vomiting (N/V). [facility] ondansetron 4 mg disintegrat ing tablet 0 -15 00:00: 00 Yes [id number] 4mg Take 1 tablet by mouth every 12 (twelve) hours as needed for Nausea and Vomiting (N/V). [facility] ondansetron 4 mg disintegrat ing tablet 2022-0 -15 00:00: 00 Yes [id number] 4mg Take 1 tablet by mouth every 12 (twelve) hours as needed for Nausea and Vomiting (N/V). [facility] ondansetron 4 mg disintegrat ing tablet 3-0 7-15 00:00: 00 Yes [id number] 4mg Take 1 tablet by mouth every 12 (twelve) hours as needed for Nausea and Vomiting (N/V). [facility] ondansetron 4 mg disintegrat ing tablet 2022-0 7-15 00:00: 00 Yes [id number] 4mg Take 1 tablet by mouth every 12 (twelve) hours as needed for Nausea and Vomiting (N/V). [facility] ondansetron 4 mg disintegrat ing tablet 2022-0 7-15 00:00: 00 Yes [id number] 4mg Take 1 tablet by mouth every 12 (twelve) hours as needed for Nausea and Vomiting (N/V). [facility] ondansetron 4 mg disintegrat ing tablet 2022-0 7-15 00:00: 00 Yes [id number] 4mg Take 1 tablet by mouth every 12 (twelve) hours as needed for Nausea and Vomiting (N/V). [facility] ondansetron 4 mg disintegrat ing tablet 2022-0 7-15 00:00: 00 04-09 00:00 :00 No [id number] 4mg Take 1 tablet by mouth every 12 (twelve) hours as needed for Nausea and Vomiting (N/V). [facility] ondansetron 4 mg disintegrat ing tablet 0 7-15 00:00: 00 04-09 00:00 :00 No [id number] 4mg Take 1 tablet by mouth every 12 (twelve) hours as needed for Nausea and Vomiting (N/V). [facility] ondansetron 4 mg disintegrat ing tablet 0 7-15 00:00: 00 04-09 00:00 :00 No [id number] 4mg Take 1 tablet by mouth every 12 (twelve) hours as needed for Nausea and Vomiting (N/V). [facility] ondansetron 4 mg disintegrat ing tablet 2022-0 7-15 00:00: 00 04-09 00:00 :00 No [id number] 4mg Take 1 tablet by mouth every 12 (twelve) hours as needed for Nausea and Vomiting (N/V). [facility] ondansetron 4 mg disintegrat ing tablet 2022-0 7-15 00:00: 00 04-09 00:00 :00 No [id number] 4mg Take 1 tablet by mouth every 12 (twelve) hours as needed for Nausea and Vomiting (N/V). [facility] ondansetron 4 mg disintegrat ing tablet 2022-0 7-15 00:00: 00 04-09 00:00 :00 No [id number] 4mg Take 1 tablet by mouth every 12 (twelve) hours as needed for Nausea and Vomiting (N/V). [facility] ondansetron 4 mg disintegrat ing tablet 01-02 00:00: 00 04-09 00:00 :00 No [id number] 4mg Take 1 tablet by mouth every 12 (twelve) hours as needed for Nausea and Vomiting (N/V). [facility] acetaminoph en-codeine 300-30 mg tablet 01-02 00:00: 00 01-10 04:59 :00 No [id number] 1{tbl} Take 1 tablet by mouth every 6 (six) hours as needed for Pain (scale 7-10) for up to 7 days. Indication s: acute pain [facility] acetaminoph en-codeine 300-30 mg tablet 01-02 00:00: 00 01-10 04:59 :00 No 4647 1{tbl} Take 1 tablet by mouth every 6 (six) hours as needed for Pain (scale 7-10) for up to 7 days. Indication s: acute [facility] acetaminoph en-codeine 300-30 mg tablet 01-02 00:00: 00 01-10 04:59 :00 No 4647 1{tbl} Take 1 tablet by mouth every 6 (six) hours as needed for Pain (scale 7-10) for up to 7 days. Indication s: acute pain [facility] acetaminoph en-codeine 300-30 mg tablet 01-02 00:00: 00 01-10 04:59 :00 No 4647 1{tbl} Take 1 tablet by mouth every 6 (six) hours as needed for Pain (scale 7-10) for up to 7 days. Indication s: acute pain [facility] acetaminoph en-codeine 300-30 mg tablet 01-02 00:00: 00 01-08 00:00 :00 No 4647 1{tbl} Take 1 tablet by mouth every 6 (six) hours as needed for Pain (scale 7-10) for up to 7 days. Indication s: acute pain [facility] acetaminoph en-codeine 300-30 mg tablet 01-02 00:00: 00 01-08 00:00 :00 No 4647 1{tbl} Take 1 tablet by mouth every 6 (six) hours as needed for Pain (scale 7-10) for up to 7 days. Indication s: acute pain [facility] doxylamine- pyridoxine, vit B6, (DICLEGIS) 10-10 mg per tablet 12-21 00:00: 00 Yes [id number] Day 1: Take 2 tablet before bed. Day 2: If still having nausea and vomiting 2 tablet bed. Day 3 take 1 tablet in am and 2 tablet at bed [facility] doxylamine- pyridoxine, vit B6, (DICLEGIS) 10-10 mg per tablet 12-21 00:00: 00 Yes [id number] Day 1: Take 2 tablet before bed. Day 2: If still having nausea and vomiting 2 tablet bed. Day 3 take 1 tablet in am and 2 tablet at bed [facility] doxylamine- pyridoxine, vit B6, (DICLEGIS) 10-10 mg per tablet 12-21 00:00: 00 Yes [id number] Day 1: Take 2 tablet before bed. Day 2: If still having nausea and vomiting 2 tablet bed. Day 3 take 1 tablet in am and 2 tablet at bed [facility] doxylamine- pyridoxine, vit B6, (DICLEGIS) 10-10 mg per tablet 12-21 00:00: 00 Yes [id number] Day 1: Take 2 tablet before bed. Day 2: If still having nausea and vomiting 2 tablet bed. Day 3 take 1 tablet in am and 2 tablet at bed [facility] doxylamine- pyridoxine, vit B6, (DICLEGIS) 10-10 mg per tablet 12-21 00:00: 00 Yes [id number] Day 1: Take 2 tablet before bed. Day 2: If still having nausea and vomiting 2 tablet bed. Day 3 take 1 tablet in am and 2 tablet at bed [facility] doxylamine- pyridoxine, vit B6, (DICLEGIS) 10-10 mg per tablet 12-21 00:00: 00 Yes [id number] Day 1: Take 2 tablet before bed. Day 2: If still having nausea and vomiting 2 tablet bed. Day 3 take 1 tablet in am and 2 tablet at bed [facility] doxylamine- pyridoxine, vit B6, (DICLEGIS) 10-10 mg per tablet 12-21 00:00: 00 Yes [id number] Day 1: Take 2 tablet before bed. Day 2: If still having nausea and vomiting 2 tablet bed. Day 3 take 1 tablet in am and 2 tablet at bed [facility] doxylamine- pyridoxine, vit B6, (DICLEGIS) 10-10 mg per tablet 12-21 00:00: 00 Yes [id number] Day 1: Take 2 tablet before bed. Day 2: If still having nausea and vomiting 2 tablet bed. Day 3 take 1 tablet in am and 2 tablet at bed [facility] doxylamine- pyridoxine, vit B6, (DICLEGIS) 10-10 mg per tablet 12-21 00:00: 00 Yes [id number] Day 1: Take 2 tablet before bed. Day 2: If still having nausea and vomiting 2 tablet bed. Day 3 take 1 tablet in am and 2 tablet at bed [facility] doxylamine- pyridoxine, vit B6, (DICLEGIS) 10-10 mg per tablet 12-21 00:00: 00 Yes [id number] Day 1: Take 2 tablet before bed. Day 2: If still having nausea and vomiting 2 tablet bed. Day 3 take 1 tablet in am and 2 tablet at bed [facility] doxylamine- pyridoxine, vit B6, (DICLEGIS) 10-10 mg per tablet 12-21 00:00: 00 Yes [id number] Day 1: Take 2 tablet before bed. Day 2: If still having nausea and vomiting 2 tablet bed. Day 3 take 1 tablet in am and 2 tablet at bed [facility] doxylamine- pyridoxine, vit B6, (DICLEGIS) 10-10 mg per tablet 12-21 00:00: 00 Yes [id number] Day 1: Take 2 tablet before bed. Day 2: If still having nausea and vomiting 2 tablet bed. Day 3 take 1 tablet in am and 2 tablet at bed [facility] doxylamine- pyridoxine, vit B6, (DICLEGIS) 10-10 mg per tablet 12-21 00:00: 00 Yes [id number] Day 1: Take 2 tablet before bed. Day 2: If still having nausea and vomiting 2 tablet bed. Day 3 take 1 tablet in am and 2 tablet at bed [facility] doxylamine- pyridoxine, vit B6, (DICLEGIS) 10-10 mg per tablet 12-21 00:00: 00 Yes [id number] Day 1: Take 2 tablet before bed. Day 2: If still having nausea and vomiting 2 tablet bed. Day 3 take 1 tablet in am and 2 tablet at bed [facility] doxylamine- pyridoxine, vit B6, (DICLEGIS) 10-10 mg per tablet 12-21 00:00: 00 Yes [id number] Day 1: Take 2 tablet before bed. Day 2: If still having nausea and vomiting 2 tablet bed. Day 3 take 1 tablet in am and 2 tablet at bed [facility] doxylamine- pyridoxine, vit B6, (DICLEGIS) 10-10 mg per tablet 12-21 00:00: 00 Yes [id number] Day 1: Take 2 tablet before bed. Day 2: If still having nausea and vomiting 2 tablet bed. Day 3 take 1 tablet in am and 2 tablet at bed [facility] doxylamine- pyridoxine, vit B6, (DICLEGIS) 10-10 mg per tablet 12-21 00:00: 00 Yes [id number] Day 1: Take 2 tablet before bed. Day 2: If still having nausea and vomiting 2 tablet bed. Day 3 take 1 tablet in am and 2 tablet at bed [facility] doxylamine- pyridoxine, vit B6, (DICLEGIS) 10-10 mg per tablet 12-21 00:00: 00 Yes [id number] Day 1: Take 2 tablet before bed. Day 2: If still having nausea and vomiting 2 tablet bed. Day 3 take 1 tablet in am and 2 tablet at bed [facility] doxylamine- pyridoxine, vit B6, (DICLEGIS) 10-10 mg per tablet 12-21 00:00: 00 Yes [id number] Day 1: Take 2 tablet before bed. Day 2: If still having nausea and vomiting 2 tablet bed. Day 3 take 1 tablet in am and 2 tablet at bed [facility] doxylamine- pyridoxine, vit B6, (DICLEGIS) 10-10 mg per tablet 12-21 00:00: 00 Yes [id number] Day 1: Take 2 tablet before bed. Day 2: If still having nausea and vomiting 2 tablet bed. Day 3 take 1 tablet in am and 2 tablet at [facility] doxylamine- pyridoxine, vit B6, (DICLEGIS) 10-10 mg per tablet 12-21 00:00: 00 Yes [id number] Day 1: Take 2 tablet before bed. Day 2: If still having nausea and vomiting 2 tablet bed. Day 3 take 1 tablet in am and 2 tablet at bed [facility] doxylamine- pyridoxine, vit B6, (DICLEGIS) 10-10 mg per tablet 12-21 00:00: 00 Yes [id number] Day 1: Take 2 tablet before bed. Day 2: If still having nausea and vomiting 2 tablet bed. Day 3 take 1 tablet in am and 2 tablet at bed [facility] doxylamine- pyridoxine, vit B6, (DICLEGIS) 10-10 mg per tablet 12-21 00:00: 00 Yes [id number] Day 1: Take 2 tablet before bed. Day 2: If still having nausea and vomiting 2 tablet bed. Day 3 take 1 tablet in am and 2 tablet at bed [facility] doxylamine- pyridoxine, vit B6, (DICLEGIS) 10-10 mg per tablet 12-21 00:00: 00 Yes [id number] Day 1: Take 2 tablet before bed. Day 2: If still having nausea and vomiting 2 tablet bed. Day 3 take 1 tablet in am and 2 tablet at bed [facility] doxylamine- pyridoxine, vit B6, (DICLEGIS) 10-10 mg per tablet 12-21 00:00: 00 Yes [id number] Day 1: Take 2 tablet before bed. Day 2: If still having nausea and vomiting 2 tablet bed. Day 3 take 1 tablet in am and 2 tablet at [facility] doxylamine- pyridoxine, vit B6, (DICLEGIS) 10-10 mg per tablet 12-21 00:00: 00 Yes [id number] Day 1: Take 2 tablet before bed. Day 2: If still having nausea and vomiting 2 tablet bed. Day 3 take 1 tablet in am and 2 tablet at [facility] doxylamine- pyridoxine, vit B6, (DICLEGIS) 10-10 mg per tablet 12-21 00:00: 00 Yes [id number] Day 1: Take 2 tablet before bed. Day 2: If still having nausea and vomiting 2 tablet bed. Day 3 take 1 tablet in am and 2 tablet at [facility] doxylamine- pyridoxine, vit B6, (DICLEGIS) 10-10 mg per tablet 12-21 00:00: 00 Yes [id number] Day 1: Take 2 tablet before bed. Day 2: If still having nausea and vomiting 2 tablet bed. Day 3 take 1 tablet in am and 2 tablet at [facility] doxylamine- pyridoxine, vit B6, (DICLEGIS) 10-10 mg per tablet 12-21 00:00: 00 Yes [id number] Day 1: Take 2 tablet before bed. Day 2: If still having nausea and vomiting 2 tablet bed. Day 3 take 1 tablet in am and 2 tablet at [facility] doxylamine- pyridoxine, vit B6, (DICLEGIS) 10-10 mg per tablet 12-21 00:00: 00 Yes [id number] Day 1: Take 2 tablet before bed. Day 2: If still having nausea and vomiting 2 tablet bed. Day 3 take 1 tablet in am and 2 tablet at [facility] doxylamine- pyridoxine, vit B6, (DICLEGIS) 10-10 mg per tablet 12-21 00:00: 00 Yes [id number] Day 1: Take 2 tablet before bed. Day 2: If still having nausea and vomiting 2 tablet bed. Day 3 take 1 tablet in am and 2 tablet at bed [facility] doxylamine- pyridoxine, vit B6, (DICLEGIS) 10-10 mg per tablet 12-21 00:00: 00 Yes [id number] Day 1: Take 2 tablet before bed. Day 2: If still having nausea and vomiting 2 tablet bed. Day 3 take 1 tablet in am and 2 tablet at bed [facility] doxylamine- pyridoxine, vit B6, (DICLEGIS) 10-10 mg per tablet 12-21 00:00: 00 Yes [id number] Day 1: Take 2 tablet before bed. Day 2: If still having nausea and vomiting 2 tablet bed. Day 3 take 1 tablet in am and 2 tablet at bed [facility] doxylamine- pyridoxine, vit B6, (DICLEGIS) 10-10 mg per tablet 12-21 00:00: 00 Yes [id number] Day 1: Take 2 tablet before bed. Day 2: If still having nausea and vomiting 2 tablet bed. Day 3 take 1 tablet in am and 2 tablet at bed [facility] doxylamine- pyridoxine, vit B6, (DICLEGIS) 10-10 mg per tablet 12-21 00:00: 00 04-09 00:00 :00 No [id number] Day 1: Take 2 tablet before bed. Day 2: If still having nausea and vomiting 2 tablet bed. Day 3 take 1 tablet in am and 2 tablet at bed [facility] doxylamine- pyridoxine, vit B6, (DICLEGIS) 10-10 mg per tablet 12-21 00:00: 00 04-09 00:00 :00 No [id number] Day 1: Take 2 tablet before bed. Day 2: If still having nausea and vomiting 2 tablet bed. Day 3 take 1 tablet in am and 2 tablet at bed [facility] doxylamine- pyridoxine, vit B6, (DICLEGIS) 10-10 mg per tablet 12-21 00:00: 00 04-09 00:00 :00 No [id number] Day 1: Take 2 tablet before bed. Day 2: If still having nausea and vomiting 2 tablet bed. Day 3 take 1 tablet in am and 2 tablet at bed [facility] doxylamine- pyridoxine, vit B6, (DICLEGIS) 10-10 mg per tablet 12-21 00:00: 00 04-09 00:00 :00 No [id number] Day 1: Take 2 tablet before bed. Day 2: If still having nausea and vomiting 2 tablet bed. Day 3 take 1 tablet in am and 2 tablet at bed [facility] doxylamine- pyridoxine, vit B6, (DICLEGIS) 10-10 mg per tablet 12-21 00:00: 00 04-09 00:00 :00 No [id number] Day 1: Take 2 tablet before bed. Day 2: If still having nausea and vomiting 2 tablet bed. Day 3 take 1 tablet in am and 2 tablet at bed [facility] doxylamine- pyridoxine, vit B6, (DICLEGIS) 10-10 mg per tablet 12-21 00:00: 00 04-09 00:00 :00 No [id number] Day 1: Take 2 tablet before bed. Day 2: If still having nausea and vomiting 2 tablet bed. Day 3 take 1 tablet in am and 2 tablet at bed [facility] doxylamine- pyridoxine, vit B6, (DICLEGIS) 10-10 mg per tablet 12-21 00:00: 00 04-09 00:00 :00 No [id number] Day 1: Take 2 tablet before bed. Day 2: If still having nausea and vomiting 2 tablet bed. Day 3 take 1 tablet in am and 2 tablet at bed [facility] HYDROcodone -acetaminop hen 7.5-325 mg per tablet 6-29 00:00: 00 01-08 00:00 :00 No TAKE 1 TABLET BY MOUTH EVERY 4 HOURS FOR PAIN [facility] ketorolac 10 mg tablet 12-17 00:00: 00 01-08 00:00 :00 No 10mg Take 1 tablet by mouth every 8 (eight) hours as needed. [facility] HYDROcodone -acetaminop hen 7.5-325 mg per tablet 12-17 00:00: 00 01-08 00:00 :00 No TAKE 1 TABLET BY MOUTH EVERY 4 HOURS FOR PAIN [facility] ketorolac 10 mg tablet 12-17 00:00: 00 01-08 00:00 :00 No 10mg Take 1 tablet by mouth every 8 (eight) hours as needed. [facility] Nitrofurant oin&Nit. Macrocryst (MACROBID) 100 mg capsule 12-14 00:00: 00 12-25 04:59 :00 No [id number] 100mg Take 1 capsule by mouth in the morning and 1 capsule in the evening. Do all this for 10 days. [facility] Nitrofurant oin&Nit. Macrocryst (MACROBID) 100 mg capsule 12-14 00:00: 00 12-25 04:59 :00 No [id number] 100mg Take 1 capsule by mouth in the morning and 1 capsule in the evening. Do all this for 10 days. [facility] Nitrofurant oin&Nit. Macrocryst (MACROBID) 100 mg capsule 12-14 00:00: 00 12-25 04:59 :00 No [id number] 100mg Take 1 capsule by mouth in the morning and 1 capsule in the evening. Do all this for 10 days. [facility] Nitrofurant oin&Nit. Macrocryst (MACROBID) 100 mg capsule 12-14 00:00: 00 12-25 04:59 :00 No [id number] 100mg Take 1 capsule by mouth in the morning and 1 capsule in the evening. Do all this for 10 days. [facility] Nitrofurant oin&Nit. Macrocryst (MACROBID) 100 mg capsule 3-0 626 00:00: 00 12-25 04:59 :00 No [id number] 100mg Take 1 capsule by mouth in the morning and 1 capsule in the evening. Do all this for 10 days. [facility] Nitrofurant oin&Nit. Macrocryst (MACROBID) 100 mg capsule 3-0 6-24 00:00: 00 12-23 04:59 :00 No [id number] 100mg Take 1 capsule by mouth in the morning and 1 capsule in the evening. Do all this for 10 days. [facility] Nitrofurant oin&Nit. Macrocryst (MACROBID) 100 mg capsule 2022-0 6-24 00:00: 00 12-23 04:59 :00 No [id number] 100mg Take 1 capsule by mouth in the morning and 1 capsule in the evening. Do all this for 10 days. [facility] Nitrofurant oin&Nit. Macrocryst (MACROBID) 100 mg capsule 2022-0 6-24 00:00: 00 12-23 04:59 :00 No [id number] 100mg Take 1 capsule by mouth in the morning and 1 capsule in the evening. Do all this for 10 days. [facility] Nitrofurant oin&Nit. Macrocryst (MACROBID) 100 mg capsule 3-0 6-24 00:00: 00 12-23 04:59 :00 No [id number] 100mg Take 1 capsule by mouth in the morning and 1 capsule in the evening. Do all this for 10 days. [facility] Nitrofurant oin&Nit. Macrocryst (MACROBID) 100 mg capsule 3-0 6-24 00:00: 00 12-23 04:59 :00 No [id number] 100mg Take 1 capsule by mouth in the morning and 1 capsule in the evening. Do all this for 10 days. [facility] Nitrofurant oin&Nit. Macrocryst (MACROBID) 100 mg capsule 3-0 6-24 00:00: 00 12-23 04:59 :00 No [id number] 100mg Take 1 capsule by mouth in the morning and 1 capsule in the evening. Do all this for 10 days. [facility] cetirizine HCl (ZYRTEC ORAL) 12-11 11:04: 03 12-11 00:00 :00 No Take by mouth. [facility] cetirizine HCl (ZYRTEC ORAL) 12-11 11:04: 03 12-11 00:00 :00 No Take by mouth. [facility] cetirizine HCl (ZYRTEC ORAL) 12-11 11:04: 03 12-11 00:00 :00 No Take by mouth. [facility] cetirizine HCl (ZYRTEC ORAL) 12-11 11:04: 03 12-11 00:00 :00 No Take by mouth. [facility] cetirizine HCl (ZYRTEC ORAL) 12-11 11:04: 03 12-11 00:00 :00 No Take by mouth. [facility] vitamin w/FA tablet 12-11 00:00: 00 Yes [id number] 1{tbl} Take 1 tablet by mouth in the morning. [facility] proMETHazin e 25 mg tablet 12-11 00:00: 00 Yes [id number] 25mg Take 1 tablet by mouth every 6 (six) hours as needed for Nausea and Vomiting (N/V). [facility] vitamin w/FA tablet 12-11 00:00: 00 Yes [id number] 1{tbl} Take 1 tablet by mouth in the morning. [facility] proMETHazin e 25 mg tablet 12-11 00:00: 00 Yes [id number] 25mg Take 1 tablet by mouth every 6 (six) hours as needed for Nausea and Vomiting (N/V). [facility] vitamin w/FA tablet 12-11 00:00: 00 Yes [id number] 1{tbl} Take 1 tablet by mouth in the morning. [facility] proMETHazin e 25 mg tablet 3-0 23 00:00: 00 Yes [id number] 25mg Take 1 tablet by mouth every 6 (six) hours as needed for Nausea and Vomiting (N/V). [facility] vitamin w/FA tablet 3-0 23 00:00: 00 Yes [id number] 1{tbl} Take 1 tablet by mouth in the morning. [facility] proMETHazin e 25 mg tablet 2022-0 23 00:00: 00 Yes [id number] 25mg Take 1 tablet by mouth every 6 (six) hours as needed for Nausea and Vomiting (N/V). [facility] vitamin w/FA tablet 2022-0 - 00:00: 00 Yes [id number] 1{tbl} Take 1 tablet by mouth in the morning. [facility] proMETHazin e 25 mg tablet 3-0 12-11 00:00: 00 Yes [id number] 25mg Take 1 tablet by mouth every 6 (six) hours as needed for Nausea and Vomiting (N/V). [facility] vitamin w/FA tablet 3-0 23 00:00: 00 Yes [id number] 1{tbl} Take 1 tablet by mouth in the morning. [facility] proMETHazin e 25 mg tablet 3-0 12-11 00:00: 00 Yes [id number] 25mg Take 1 tablet by mouth every 6 (six) hours as needed for Nausea and Vomiting (N/V). [facility] vitamin w/FA tablet 3-0 23 00:00: 00 Yes [id number] 1{tbl} Take 1 tablet by mouth in the morning. [facility] proMETHazin e 25 mg tablet 3-0 -23 00:00: 00 Yes [id number] 25mg Take 1 tablet by mouth every 6 (six) hours as needed for Nausea and Vomiting (N/V). [facility] vitamin w/FA tablet 3-0 -23 00:00: 00 Yes [id number] 1{tbl} Take 1 tablet by mouth in the morning. [facility] proMETHazin e 25 mg tablet 3-0 12-11 00:00: 00 Yes [id number] 25mg Take 1 tablet by mouth every 6 (six) hours as needed for Nausea and Vomiting (N/V). [facility] vitamin w/FA tablet 3-0 12-11 00:00: 00 Yes [id number] 1{tbl} Take 1 tablet by mouth in the morning. [facility] proMETHazin e 25 mg tablet 3-0 12-11 00:00: 00 Yes [id number] 25mg Take 1 tablet by mouth every 6 (six) hours as needed for Nausea and Vomiting (N/V). [facility] vitamin w/FA tablet 3-0 12-11 00:00: 00 Yes [id number] 1{tbl} Take 1 tablet by mouth in the morning. [facility] proMETHazin e 25 mg tablet 2022-0 12-11 00:00: 00 Yes [id number] 25mg Take 1 tablet by mouth every 6 (six) hours as needed for Nausea and Vomiting (N/V). [facility] vitamin w/FA tablet 3-0 12-11 00:00: 00 Yes [id number] 1{tbl} Take 1 tablet by mouth in the morning. [facility] proMETHazin e 25 mg tablet 2022-0 12-11 00:00: 00 Yes [id number] 25mg Take 1 tablet by mouth every 6 (six) hours as needed for Nausea and Vomiting (N/V). [facility] vitamin w/FA tablet 3-0 12-11 00:00: 00 Yes [id number] 1{tbl} Take 1 tablet by mouth in the morning. [facility] proMETHazin e 25 mg tablet 3-0 12-11 00:00: 00 Yes [id number] 25mg Take 1 tablet by mouth every 6 (six) hours as needed for Nausea and Vomiting (N/V). [facility] vitamin w/FA tablet 3-0 -23 00:00: 00 Yes [id number] 1{tbl} Take 1 tablet by mouth in the morning. [facility] proMETHazin e 25 mg tablet 3-0 12-11 00:00: 00 Yes [id number] 25mg Take 1 tablet by mouth every 6 (six) hours as needed for Nausea and Vomiting (N/V). [facility] vitamin w/FA tablet 3-0 12-11 00:00: 00 Yes [id number] 1{tbl} Take 1 tablet by mouth in the morning. [facility] proMETHazin e 25 mg tablet 2022-0 12-11 00:00: 00 Yes [id number] 25mg Take 1 tablet by mouth every 6 (six) hours as needed for Nausea and Vomiting (N/V). [facility] vitamin w/FA tablet 3-0 12-11 00:00: 00 Yes [id number] 1{tbl} Take 1 tablet by mouth in the morning. [facility] proMETHazin e 25 mg tablet 3-0 12-11 00:00: 00 Yes [id number] 25mg Take 1 tablet by mouth every 6 (six) hours as needed for Nausea and Vomiting (N/V). [facility] vitamin w/FA tablet 3-0 12-11 00:00: 00 Yes [id number] 1{tbl} Take 1 tablet by mouth in the morning. [facility] proMETHazin e 25 mg tablet 2022-0 12-11 00:00: 00 Yes [id number] 25mg Take 1 tablet by mouth every 6 (six) hours as needed for Nausea and Vomiting (N/V). [facility] vitamin w/FA tablet 3-0 12-11 00:00: 00 Yes [id number] 1{tbl} Take 1 tablet by mouth in the morning. [facility] vitamin w/FA tablet 3-0 12-11 00:00: 00 Yes [id number] 1{tbl} Take 1 tablet by mouth in the morning. [facility] vitamin w/FA tablet 3-0 12-11 00:00: 00 Yes [id number] 1{tbl} Take 1 tablet by mouth in the morning. [facility] vitamin w/FA tablet 3-0 12-11 00:00: 00 Yes [id number] 1{tbl} Take 1 tablet by mouth in the morning. [facility] vitamin w/FA tablet 3-0 12-11 00:00: 00 Yes [id number] 1{tbl} Take 1 tablet by mouth in the morning. [facility] vitamin w/FA tablet 3-0 12-11 00:00: 00 Yes [id number] 1{tbl} Take 1 tablet by mouth in the morning. [facility] vitamin w/FA tablet 3-0 12-11 00:00: 00 Yes [id number] 1{tbl} Take 1 tablet by mouth in the morning. [facility] vitamin w/FA tablet 3-0 12-11 00:00: 00 Yes [id number] 1{tbl} Take 1 tablet by mouth in the morning. [facility] vitamin w/FA tablet 3-0 12-11 00:00: 00 Yes [id number] 1{tbl} Take 1 tablet by mouth in the morning. [facility] vitamin w/FA tablet 3-0 12-11 00:00: 00 Yes [id number] 1{tbl} Take 1 tablet by mouth in the morning. [facility] vitamin w/FA tablet 3-0 12-11 00:00: 00 Yes [id number] 1{tbl} Take 1 tablet by mouth in the morning. [facility] vitamin w/FA tablet 3-0 12-11 00:00: 00 Yes [id number] 1{tbl} Take 1 tablet by mouth in the morning. [facility] vitamin w/FA tablet 3-0 12-11 00:00: 00 Yes [id number] 1{tbl} Take 1 tablet by mouth in the morning. [facility] vitamin w/FA tablet 3-0 12-11 00:00: 00 Yes [id number] 1{tbl} Take 1 tablet by mouth in the morning. [facility] vitamin w/FA tablet 3-0 - 00:00: 00 Yes [id number] 1{tbl} Take 1 tablet by mouth in the morning. [facility] vitamin w/FA tablet 3-0 6-23 00:00: 00 Yes [id number] 1{tbl} Take 1 tablet by mouth in the morning. [facility] vitamin w/FA tablet 3-0 23 00:00: 00 Yes [id number] 1{tbl} Take 1 tablet by mouth in the morning. [facility] vitamin w/FA tablet 3-0 12-11 00:00: 00 Yes [id number] 1{tbl} Take 1 tablet by mouth in the morning. [facility] vitamin w/FA tablet 3-0 23 00:00: 00 Yes [id number] 1{tbl} Take 1 tablet by mouth in the morning. [facility] vitamin w/FA tablet 3-0 12-11 00:00: 00 Yes [id number] 1{tbl} Take 1 tablet by mouth in the morning. [facility] vitamin w/FA tablet 3-0 12-11 00:00: 00 Yes [id number] 1{tbl} Take 1 tablet by mouth in the morning. [facility] vitamin w/FA tablet 3-0 12-11 00:00: 00 Yes [id number] 1{tbl} Take 1 tablet by mouth in the morning. [facility] vitamin w/FA tablet 3-0 12-11 00:00: 00 Yes [id number] 1{tbl} Take 1 tablet by mouth in the morning. [facility] vitamin w/FA tablet 3-0 12-11 00:00: 00 Yes [id number] 1{tbl} Take 1 tablet by mouth in the morning. [facility] vitamin w/FA tablet 3-0 12-11 00:00: 00 Yes [id number] 1{tbl} Take 1 tablet by mouth in the morning. [facility] vitamin w/FA tablet 3-0 -23 00:00: 00 Yes [id number] 1{tbl} Take 1 tablet by mouth in the morning. [facility] vitamin w/FA tablet 3-0 -23 00:00: 00 Yes [id number] 1{tbl} Take 1 tablet by mouth in the morning. [facility] vitamin w/FA tablet 2022-0 12-11 00:00: 00 Yes [id number] 1{tbl} Take 1 tablet by mouth in the morning. [facility] vitamin w/FA tablet 2022-0 12-11 00:00: 00 Yes [id number] 1{tbl} Take 1 tablet by mouth in the morning. [facility] vitamin w/FA tablet 2022-0 12-11 00:00: 00 Yes [id number] 1{tbl} Take 1 tablet by mouth in the morning. [facility] vitamin w/FA tablet 2022-0 12-11 00:00: 00 Yes [id number] 1{tbl} Take 1 tablet by mouth in the morning. [facility] vitamin w/FA tablet 2022-0 12-11 00:00: 00 Yes [id number] 1{tbl} Take 1 tablet by mouth in the morning. [facility] vitamin w/FA tablet 2022-0 12-11 00:00: 00 Yes [id number] 1{tbl} Take 1 tablet by mouth in the morning. [facility] vitamin w/FA tablet 2022-0 12-11 00:00: 00 Yes [id number] 1{tbl} Take 1 tablet by mouth in the morning. [facility] vitamin w/FA tablet 2022-0 12-11 00:00: 00 Yes [id number] 1{tbl} Take 1 tablet by mouth in the morning. [facility] vitamin w/FA tablet 2022-0 12-11 00:00: 00 Yes [id number] 1{tbl} Take 1 tablet by mouth in the morning. [facility] vitamin w/FA tablet 2022-0 12-11 00:00: 00 Yes [id number] 1{tbl} Take 1 tablet by mouth in the morning. [facility] vitamin w/FA tablet 3-0 12-11 00:00: 00 Yes [id number] 1{tbl} Take 1 tablet by mouth in the morning. [facility] vitamin w/FA tablet 3-0 12-11 00:00: 00 Yes [id number] 1{tbl} Take 1 tablet by mouth in the morning. [facility] vitamin w/FA tablet 3-0 12-11 00:00: 00 Yes [id number] 1{tbl} Take 1 tablet by mouth in the morning. [facility] vitamin w/FA tablet 3-0 12-11 00:00: 00 Yes [id number] 1{tbl} Take 1 tablet by mouth in the morning. [facility] vitamin w/FA tablet 3-0 12-11 00:00: 00 Yes [id number] 1{tbl} Take 1 tablet by mouth in the morning. [facility] vitamin w/FA tablet 3-0 12-11 00:00: 00 Yes [id number] 1{tbl} Take 1 tablet by mouth in the morning. [facility] vitamin w/FA tablet 3-0 12-11 00:00: 00 Yes [id number] 1{tbl} Take 1 tablet by mouth in the morning. [facility] vitamin w/FA tablet 3-0 12-11 00:00: 00 Yes [id number] 1{tbl} Take 1 tablet by mouth in the morning. [facility] vitamin w/FA tablet 3-0 12-11 00:00: 00 Yes [id number] 1{tbl} Take 1 tablet by mouth in the morning. [facility] vitamin w/FA tablet 3-0 12-11 00:00: 00 Yes [id number] 1{tbl} Take 1 tablet by mouth in the morning. [facility] vitamin w/FA tablet 3-0 12-11 00:00: 00 Yes [id number] 1{tbl} Take 1 tablet by mouth in the morning. [facility] vitamin w/FA tablet 3-0 12-11 00:00: 00 Yes [id number] 1{tbl} Take 1 tablet by mouth in the morning. [facility] vitamin w/FA tablet 3-0 12-11 00:00: 00 Yes [id number] 1{tbl} Take 1 tablet by mouth in the morning. [facility] vitamin w/FA tablet 3-0 12-11 00:00: 00 Yes [id number] 1{tbl} Take 1 tablet by mouth in the morning. [facility] vitamin w/FA tablet 3-0 12-11 00:00: 00 Yes [id number] 1{tbl} Take 1 tablet by mouth in the morning. [facility] vitamin w/FA tablet 3-0 12-11 00:00: 00 Yes [id number] 1{tbl} Take 1 tablet by mouth in the morning. [facility] vitamin w/FA tablet 3-0 12-11 00:00: 00 Yes [id number] 1{tbl} Take 1 tablet by mouth in the morning. [facility] vitamin w/FA tablet 3-0 12-11 00:00: 00 Yes [id number] 1{tbl} Take 1 tablet by mouth in the morning. [facility] vitamin w/FA tablet 3-0 12-11 00:00: 00 Yes [id number] 1{tbl} Take 1 tablet by mouth in the morning. [facility] vitamin w/FA tablet 3-0 12-11 00:00: 00 Yes [id number] 1{tbl} Take 1 tablet by mouth in the morning. [facility] vitamin w/FA tablet 3-0 12-11 00:00: 00 Yes [id number] 1{tbl} Take 1 tablet by mouth in the morning. [facility] vitamin w/FA tablet 3-0 12-11 00:00: 00 Yes [id number] 1{tbl} Take 1 tablet by mouth in the morning. [facility] vitamin w/FA tablet 3-0 12-11 00:00: 00 Yes [id number] 1{tbl} Take 1 tablet by mouth in the morning. [facility] vitamin w/FA tablet 3-0 12-11 00:00: 00 Yes [id number] 1{tbl} Take 1 tablet by mouth in the morning. [facility] vitamin w/FA tablet 3-0 -23 00:00: 00 Yes [id number] 1{tbl} Take 1 tablet by mouth in the morning. [facility] vitamin w/FA tablet 3-0 12-11 00:00: 00 Yes [id number] 1{tbl} Take 1 tablet by mouth in the morning. [facility] vitamin w/FA tablet 3-0 12-11 00:00: 00 Yes [id number] 1{tbl} Take 1 tablet by mouth in the morning. [facility] vitamin w/FA tablet 3-0 12-11 00:00: 00 Yes [id number] 1{tbl} Take 1 tablet by mouth in the morning. [facility] vitamin w/FA tablet 3-0 12-11 00:00: 00 Yes [id number] 1{tbl} Take 1 tablet by mouth in the morning. [facility] vitamin w/FA tablet 3-0 12-11 00:00: 00 Yes [id number] 1{tbl} Take 1 tablet by mouth in the morning. [facility] vitamin w/FA tablet 3-0 12-11 00:00: 00 Yes [id number] 1{tbl} Take 1 tablet by mouth in the morning. [facility] vitamin w/FA tablet 3-0 12-11 00:00: 00 Yes [id number] 1{tbl} Take 1 tablet by mouth in the morning. [facility] vitamin w/FA tablet 3-0 12-11 00:00: 00 Yes [id number] 1{tbl} Take 1 tablet by mouth in the morning. [facility] vitamin w/FA tablet 3-0 12-11 00:00: 00 Yes [id number] 1{tbl} Take 1 tablet by mouth in the morning. [facility] vitamin w/FA tablet 3-0 12-11 00:00: 00 Yes [id number] 1{tbl} Take 1 tablet by mouth in the morning. [facility] vitamin w/FA tablet 3-0 23 00:00: 00 Yes [id number] 1{tbl} Take 1 tablet by mouth in the morning. [facility] vitamin w/FA tablet 3-0 12-11 00:00: 00 Yes [id number] 1{tbl} Take 1 tablet by mouth in the morning. [facility] vitamin w/FA tablet 3-0 12-11 00:00: 00 Yes [id number] 1{tbl} Take 1 tablet by mouth in the morning. [facility] vitamin w/FA tablet 3-0 23 00:00: 00 Yes [id number] 1{tbl} Take 1 tablet by mouth in the morning. [facility] vitamin w/FA tablet 3-0 12-11 00:00: 00 Yes [id number] 1{tbl} Take 1 tablet by mouth in the morning. [facility] vitamin w/FA tablet 3-0 12-11 00:00: 00 Yes [id number] 1{tbl} Take 1 tablet by mouth in the morning. [facility] vitamin w/FA tablet 3-0 12-11 00:00: 00 Yes [id number] 1{tbl} Take 1 tablet by mouth in the morning. [facility] vitamin w/FA tablet 3-0 12-11 00:00: 00 Yes [id number] 1{tbl} Take 1 tablet by mouth in the morning. [facility] vitamin w/FA tablet 3-0 12-11 00:00: 00 Yes [id number] 1{tbl} Take 1 tablet by mouth in the morning. [facility] vitamin w/FA tablet 3-0 23 00:00: 00 Yes [id number] 1{tbl} Take 1 tablet by mouth in the morning. [facility] vitamin w/FA tablet 3-0 23 00:00: 00 Yes [id number] 1{tbl} Take 1 tablet by mouth in the morning. [facility] vitamin w/FA tablet 3-0 23 00:00: 00 Yes [id number] 1{tbl} Take 1 tablet by mouth in the morning. [facility] vitamin w/FA tablet 3-0 23 00:00: 00 Yes [id number] 1{tbl} Take 1 tablet by mouth in the morning. [facility] vitamin w/FA tablet 3-0 6-23 00:00: 00 Yes [id number] 1{tbl} Take 1 tablet by mouth in the morning. [facility] vitamin w/FA tablet 3-0 12-11 00:00: 00 Yes [id number] 1{tbl} Take 1 tablet by mouth in the morning. [facility] vitamin w/FA tablet 3-0 12-11 00:00: 00 Yes [id number] 1{tbl} Take 1 tablet by mouth in the morning. [facility] vitamin w/FA tablet 3-0 12-11 00:00: 00 Yes [id number] 1{tbl} Take 1 tablet by mouth in the morning. [facility] vitamin w/FA tablet 3-0 12-11 00:00: 00 Yes [id number] 1{tbl} Take 1 tablet by mouth in the morning. [facility] vitamin w/FA tablet 3-0 12-11 00:00: 00 Yes [id number] 1{tbl} Take 1 tablet by mouth in the morning. [facility] vitamin w/FA tablet 3-0 12-11 00:00: 00 Yes [id number] 1{tbl} Take 1 tablet by mouth in the morning. [facility] vitamin w/FA tablet 3-0 12-11 00:00: 00 Yes [id number] 1{tbl} Take 1 tablet by mouth in the morning. [facility] vitamin w/FA tablet 3-0 12-11 00:00: 00 Yes [id number] 1{tbl} Take 1 tablet by mouth in the morning. [facility] vitamin w/FA tablet 3-0 12-11 00:00: 00 Yes [id number] 1{tbl} Take 1 tablet by mouth in the morning. [facility] vitamin w/FA tablet 3-0 12-11 00:00: 00 Yes [id number] 1{tbl} Take 1 tablet by mouth in the morning. [facility] vitamin w/FA tablet 3-0 12-11 00:00: 00 Yes [id number] 1{tbl} Take 1 tablet by mouth in the morning. [facility] vitamin w/FA tablet 3-0 12-11 00:00: 00 Yes [id number] 1{tbl} Take 1 tablet by mouth in the morning. [facility] vitamin w/FA tablet 3-0 12-11 00:00: 00 Yes [id number] 1{tbl} Take 1 tablet by mouth in the morning. [facility] vitamin w/FA tablet 3-0 12-11 00:00: 00 Yes [id number] 1{tbl} Take 1 tablet by mouth in the morning. [facility] vitamin w/FA tablet 3-0 12-11 00:00: 00 Yes [id number] 1{tbl} Take 1 tablet by mouth in the morning. [facility] vitamin w/FA tablet 3-0 12-11 00:00: 00 Yes [id number] 1{tbl} Take 1 tablet by mouth in the morning. [facility] vitamin w/FA tablet 3-0 12-11 00:00: 00 Yes [id number] 1{tbl} Take 1 tablet by mouth in the morning. [facility] vitamin w/FA tablet 3-0 12-11 00:00: 00 Yes [id number] 1{tbl} Take 1 tablet by mouth in the morning. [facility] vitamin w/FA tablet 3-0 12-11 00:00: 00 Yes [id number] 1{tbl} Take 1 tablet by mouth in the morning. [facility] vitamin w/FA tablet 3-0 12-11 00:00: 00 Yes [id number] 1{tbl} Take 1 tablet by mouth in the morning. [facility] vitamin w/FA tablet 3-0 12-11 00:00: 00 Yes [id number] 1{tbl} Take 1 tablet by mouth in the morning. [facility] vitamin w/FA tablet 3-0 -23 00:00: 00 Yes [id number] 1{tbl} Take 1 tablet by mouth in the morning. [facility] vitamin w/FA tablet 3-0 12-11 00:00: 00 Yes [id number] 1{tbl} Take 1 tablet by mouth in the morning. [facility] vitamin w/FA tablet 2022-0 12-11 00:00: 00 Yes [id number] 1{tbl} Take 1 tablet by mouth in the morning. [facility] vitamin w/FA tablet 0 12-11 00:00: 00 Yes [id number] 1{tbl} Take 1 tablet by mouth in the morning. [facility] vitamin w/FA tablet 0 12-11 00:00: 00 Yes [id number] 1{tbl} Take 1 tablet by mouth in the morning. [facility] vitamin w/FA tablet 0 12-11 00:00: 00 Yes [id number] 1{tbl} Take 1 tablet by mouth in the morning. [facility] proMETHazin e 25 mg tablet 12-11 00:00: 00 01-08 00:00 :00 No [id number] 25mg Take 1 tablet by mouth every 6 (six) hours as needed for Nausea and Vomiting (N/V). [facility] TRINATAL RX 1 60 mg iron-1 mg tablet 12-11 00:00: 00 01-08 00:00 :00 No 1{tbl} Take 1 tablet by mouth every morning. [facility] proMETHazin e 25 mg tablet 12-11 00:00: 00 01-08 00:00 :00 No [id number] 25mg Take 1 tablet by mouth every 6 (six) hours as needed for Nausea and Vomiting (N/V). [facility] TRINATAL RX 1 60 mg iron-1 mg tablet 12-11 00:00: 00 01-08 00:00 :00 No 1{tbl} Take 1 tablet by mouth every morning. [facility] proMETHazin e 25 mg tablet 12-11 00:00: 00 01-08 00:00 :00 No [id number] 25mg Take 1 tablet by mouth every 6 (six) hours as needed for Nausea and Vomiting (N/V). [facility] norelgestro min-ethinyl estradiol 150-35 mcg/24 hr patch 11-12 00:00: 00 Yes [id number] 1{patch } Apply 1 Patch to skin weekly. [facility] norelgestro min-ethinyl estradiol 150-35 mcg/24 hr patch 11-12 00:00: 00 Yes [id number] 1{patch } Apply 1 Patch to skin weekly. [facility] norelgestro min-ethinyl estradiol 150-35 mcg/24 hr patch 11-12 00:00: 00 Yes [id number] 1{patch } Apply 1 Patch to skin weekly. [facility] norelgestro min-ethinyl estradiol 150-35 mcg/24 hr patch 11-12 00:00: 00 Yes [id number] 1{patch } Apply 1 Patch to skin weekly. [facility] norelgestro min-ethinyl estradiol 150-35 mcg/24 hr patch 11-12 00:00: 00 12-10 00:00 :00 No [id number] 1{patch } Apply 1 Patch to skin weekly. [facility] norelgestro min-ethinyl estradiol 150-35 mcg/24 hr patch 11-12 00:00: 00 12-10 00:00 :00 No [id number] 1{patch } Apply 1 Patch to skin weekly. [facility] SERTraline (ZOLOFT) 100 mg tablet 10-22 00:00: 00 Yes [id number] 100mg Take 1 tablet by mouth in the morning. [facility] SERTraline (ZOLOFT) 100 mg tablet 0 10-22 00:00: 00 Yes [id number] 100mg Take 1 tablet by mouth in the morning. [facility] SERTraline (ZOLOFT) 100 mg tablet 10-22 00:00: 00 Yes [id number] 100mg Take 1 tablet by mouth in the morning. [facility] SERTraline (ZOLOFT) 100 mg tablet 2023-0 5-04 00:00: 00 Yes [id number] 100mg Take 1 tablet by mouth in the morning. [facility] SERTraline (ZOLOFT) 100 mg tablet 2022-0 5-04 00:00: 00 Yes [id number] 100mg Take 1 tablet by mouth in the morning. [facility] SERTraline (ZOLOFT) 100 mg tablet 2022-0 5-04 00:00: 00 Yes [id number] 100mg Take 1 tablet by mouth in the morning. [facility] SERTraline (ZOLOFT) 100 mg tablet 2022-0 5-04 00:00: 00 Yes [id number] 100mg Take 1 tablet by mouth in the morning. [facility] SERTraline (ZOLOFT) 100 mg tablet 2022-0 5-04 00:00: 00 Yes [id number] 100mg Take 1 tablet by mouth in the morning. [facility] SERTraline (ZOLOFT) 100 mg tablet 2022-0 5-04 00:00: 00 Yes [id number] 100mg Take 1 tablet by mouth in the morning. [facility] SERTraline (ZOLOFT) 100 mg tablet 2022-0 5-04 00:00: 00 12-11 00:00 :00 No [id number] 100mg Take 1 tablet by mouth in the morning. [facility] SERTraline (ZOLOFT) 100 mg tablet 2022-0 5-04 00:00: 00 12-11 00:00 :00 No [id number] 100mg Take 1 tablet by mouth in the morning. [facility] ondansetron (ZOFRAN-ODT ) disintegrat ing tablet 4 mg 2022-0 4-10 13:40: 00 09-28 13:44 :00 No 4mg 4 mg, Oral, ONCE, 1 dose, On Wed09/28/22 at 0845, Routine [facility] ondansetron (ZOFRAN-ODT ) disintegrat ing tablet 4 mg 2022-0 4-10 13:40: 00 09-28 13:44 :00 No 4mg 4 mg, Oral, ONCE, 1 dose, On 4/10/23 at 0845, Routine [facility] cetirizine HCl (ZYRTEC ORAL) 10 13:30: 35 Yes Take by mouth. [facility] cetirizine HCl (ZYRTEC ORAL) 10 13:30: 35 Yes Take by mouth. [facility] cetirizine HCl (ZYRTEC ORAL) 10 13:30: 35 Yes Take by mouth. [facility] cetirizine HCl (ZYRTEC ORAL) 10 13:30: 35 Yes Take by mouth. [facility] cetirizine HCl (ZYRTEC ORAL) 09-28 13:30: 35 Yes Take by mouth. [facility] cetirizine HCl (ZYRTEC ORAL) 10 13:30: 35 Yes Take by mouth. [facility] cetirizine HCl (ZYRTEC ORAL) 09-28 13:30: 35 Yes Take by mouth. [facility] cetirizine HCl (ZYRTEC ORAL) 10 13:30: 35 Yes Take by mouth. [facility] cetirizine HCl (ZYRTEC ORAL) 10 13:30: 35 Yes Take by mouth. [facility] cetirizine HCl (ZYRTEC ORAL) 10 13:30: 35 Yes Take by mouth. [facility] cetirizine HCl (ZYRTEC ORAL) 10 13:30: 35 Yes Take by mouth. [facility] cetirizine HCl (ZYRTEC ORAL) 10 13:30: 35 Yes Take by mouth. [facility] cetirizine HCl (ZYRTEC ORAL) 10 13:30: 35 Yes Take by mouth. [facility] lactated ringers IV infusion 1,000 mL -10 02:45: 00 Yes 1000mL at 42 mL/hr, 1,000 mL, IV Infusion, CONTINUOUS , Starting on Wed09/27/22 at 2145, Until Discontinu ed, Routine [facility] lactated ringers IV infusion 1,000 mL 09-28 02:45: 00 Yes 1000mL at 42 mL/hr, 1,000 mL, IV Infusion, CONTINUOUS , Starting on Wed09/27/22 at 2145, Until Discontinu ed, Routine [facility] HYDROmorphO ne (DILAUDID) injection 0.5 mg 09-28 01:50: 58 09-28 03:05 :22 No .5mg 0.5 mg, Slow IV Push, Q5MIN PRN, 4 doses, Starting on Wed09/27/22 at 2049, Until Wed09/27/22 at 2204, DOUGLAS, Pain (scale 7-10), PACU
Us e approved by (Faculty): ADC PROVIDER [facility] HYDROmorphO ne (DILAUDID) injection 0.5 mg 09-28 01:50: 58 09-28 03:05 :22 No .5mg 0.5 mg, Slow IV Push, Q5MIN PRN, 4 doses, Starting on Wed09/27/22 at 2049, Until Wed09/27/22 at 2204, DOUGLAS, Pain (scale 7-10), PACU
Us e approved by (Faculty): ADC PROVIDER [facility] HYDROcodone -acetaminop hen (NORCO 5) 5-325 mg tablet 2 tablet 09-28 01:40: 53 Yes 2{tbl} 2 tablet, Oral, Q6HPRN, Starting on Wed09/27/22 at 2040, Until Discontinu ed, Routine, Pain (scale 7-10) [facility] HYDROcodone -acetaminop hen (NORCO 5) 5-325 mg tablet 2 tablet 09-28 01:40: 53 Yes 2{tbl} 2 tablet, Oral, Q6HPRN, Starting on Wed09/27/22 at 2039, Until Discontinu ed, Routine, Pain (scale 7-10) [facility] HYDROcodone -acetaminop hen (NORCO 5) 5-325 mg tablet 1 tablet 09-28 01:40: 46 Yes 1{tbl} 1 tablet, Oral, Q6HPRN, Starting on Wed09/27/22 at 2039, Until Discontinu ed, Routine, Pain (scale 4-6) [facility] HYDROcodone -acetaminop hen (NORCO 5) 5-325 mg tablet 1 tablet 09-28 01:40: 46 Yes 1{tbl} 1 tablet, Oral, Q6HPRN, Starting on Wed09/27/22 at 2039, Until Discontinu ed, Routine, Pain (scale 4-6) [facility] water for irrigation irrigation solution 09-28 01:20: 00 Yes PRN, Starting on Wed09/27/22 at 2019, Until Discontinu ed, Routine, Intra-op [facility] water for irrigation irrigation solution 09-28 01:20: 00 Yes PRN, Starting on Wed09/27/22 at 2019, Until Discontinu ed, Routine, Intra-op [facility] HYDROcodone -acetaminop hen 5-325 mg tablet 09-28 00:00: 00 Yes [id number] 1{tbl} Take 1 tablet by mouth every 6 (six) hours as needed for Pain (scale 4-6). Indication s: acute pain [facility] HYDROcodone -acetaminop hen 5-325 mg tablet 09-28 00:00: 00 Yes [id number] 1{tbl} Take 1 tablet by mouth every 6 (six) hours as needed for Pain (scale 4-6). Indication s: acute pain [facility] HYDROcodone -acetaminop hen 5-325 mg tablet 09-28 00:00: 00 Yes [id number] 1{tbl} Take 1 tablet by mouth every 6 (six) hours as needed for Pain (scale 4-6). Indication s: acute pain [facility] HYDROcodone -acetaminop hen 5-325 mg tablet 09-28 00:00: 00 Yes [id number] 1{tbl} Take 1 tablet by mouth every 6 (six) hours as needed for Pain (scale 4-6). Indication s: acute pain [facility] HYDROcodone -acetaminop hen 5-325 mg tablet 2022-0 410 00:00: 00 Yes [id number] 1{tbl} Take 1 tablet by mouth every 6 (six) hours as needed for Pain (scale 4-6). Indication s: acute pain [facility] HYDROcodone -acetaminop hen 5-325 mg tablet 2022-0 10 00:00: 00 Yes [id number] 1{tbl} Take 1 tablet by mouth every 6 (six) hours as needed for Pain (scale 4-6). Indication s: acute pain [facility] HYDROcodone -acetaminop hen 5-325 mg tablet 10 00:00: 00 Yes [id number] 1{tbl} Take 1 tablet by mouth every 6 (six) hours as needed for Pain (scale 4-6). Indication s: acute pain [facility] HYDROcodone -acetaminop hen 5-325 mg tablet 2022-0 10 00:00: 00 11-12 00:00 :00 No [id number] 1{tbl} Take 1 tablet by mouth every 6 (six) hours as needed for Pain (scale 4-6). Indication s: acute pain [facility] HYDROcodone -acetaminop hen 5-325 mg tablet 2022-09-28 00:00: 00 11-12 00:00 :00 No [id number] 1{tbl} Take 1 tablet by mouth every 6 (six) hours as needed for Pain (scale 4-6). [facility] 800 mcg 09-27 14:15: 00 09-27 13:36 :00 No 800ug 800 mcg, Oral, ONCE, 1 dose, On 09/27/22 at 0915, Routine [facility] miSOPROStoL (CYTOTEC) tablet 800 mcg 09-27 14:15: 00 09-27 13:36 :00 No 800ug 800 mcg, Oral, ONCE, 1 dose, On 09/27/22 at 0915, Routine [facility] D5W 0.9% NaCl (NS) IV infusion 1,000 mL 09-27 05:30: 00 Yes 1000mL at 125 mL/hr, 1,000 mL, IV Infusion, CONTINUOUS , Starting on 09/27/22 at 0030, Until Discontinu ed, Routine [facility] D5W 0.9% NaCl (NS) IV infusion 1,000 mL 09-27 05:30: 00 Yes 1000mL at 125 mL/hr, 1,000 mL, IV Infusion, CONTINUOUS , Starting on 09/27/22 at 0030, Until Discontinu ed, Routine [facility] HYDROcodone -acetaminop hen (NORCO) 10-325 mg tablet 1 tablet 09-27 04:45: 00 09-27 03:42 :00 No 1{tbl} 1 tablet, Oral, ONCE NOW, 1 dose, On 09/26/22 at 2345, Routine [facility] HYDROcodone -acetaminop hen (NORCO) 10-325 mg tablet 1 tablet 09-27 04:45: 00 09-27 03:42 :00 No 1{tbl} 1 tablet, Oral, ONCE NOW, 1 dose, On 09/26/22 at 2345, Routine [facility] diphenhydrA MINE (BENADRYL) injection 25 mg 09-27 04:40: 31 Yes 25mg 25 mg, Intravenou s, Q6HPRN, Starting on 09/26/22 at 2340, Until Discontinu ed, Routine, Itching [facility] diphenhydrA MINE (BENADRYL) injection 25 mg 09-27 04:40: 31 Yes 25mg 25 mg, Intravenou s, Q6HPRN, Starting on 09/26/22 at 2340, Until Discontinu ed, Routine, Itching [facility] ketorolac (TORADOL) injection 30 mg 09-27 04:33: 40 09-29 04:32 :40 No 30mg 30 mg, Slow IV Push, Q6HPRN, Starting on 09/26/22 at 2333, Until 09/28/22 at 2332, Routine, Pain (scale 1-3), Pain (scale 4-6) [facility] ketorolac (TORADOL) injection 30 mg 09-27 04:33: 40 09-29 04:32 :40 No 30mg 30 mg, Slow IV Push, Q6HPRN, Starting on 09/26/22 at 2333, Until 09/28/22 at 2332, Routine, Pain (scale 1-3), Pain (scale 4-6) [facility] FENTanyl PF (SUBLIMAZE (PF)) injection 50 mcg 09-27 04:33: 26 Yes 50ug 50 mcg, Slow IV Push, Q2HPRN, Starting on 09/26/22 at 2333, Until Discontinu ed, Routine, Pain (scale 7-10) [facility] FENTanyl PF (SUBLIMAZE (PF)) injection 50 mcg 09-27 04:33: 26 Yes 50ug 50 mcg, Slow IV Push, Q2HPRN, Starting on 09/26/22 at 2333, Until Discontinu ed, Routine, Pain (scale 7-10) [facility] metoclopram julia HCl (REGLAN) injection 10 mg 09-27 03:45: 00 09-27 03:43 :00 No 10mg 10 mg, Slow IV Push, ONCE, 1 dose, On 09/26/22 at 2245, DOUGLAS [facility] metoclopram julia HCl (REGLAN) injection 10 mg 09-27 03:45: 00 09-27 03:43 :00 No 10mg 10 mg, Slow IV Push, ONCE, 1 dose, On 09/26/22 at 2245, DOUGLAS [facility] NaCl 0.9% (NS) IV infusion 1,000 mL 09-27 03:30: 00 09-27 03:42 :00 No 1000mL at 999 mL/hr, Intravenou s, ONCE, 1 dose, On 09/26/22 at 2230, Routine [facility] NaCl 0.9% (NS) IV infusion 1,000 mL 09-27 03:30: 00 09-27 03:42 :00 No 1000mL at 999 mL/hr, Intravenou s, ONCE, 1 dose, On 09/26/22 at 2230, Routine [facility] ondansetron (ZOFRAN (PF)) injection 4 mg 09-27 02:45: 00 09-27 02:42 :00 No 4mg 4 mg, Slow IV Push, ONCE, 1 dose, On 09/26/22 at 2145, DOUGLAS [facility] FENTanyl PF (SUBLIMAZE (PF)) injection 25 mcg 09-27 02:45: 00 09-27 02:42 :00 No 25ug 25 mcg, Slow IV Push, ONCE, 1 dose, On 09/26/22 at 2145, STAT [facility] ondansetron (ZOFRAN (PF)) injection 4 mg 09-27 02:45: 00 09-27 02:42 :00 No 4mg 4 mg, Slow IV Push, ONCE, 1 dose, On 09/26/22 at 2145, DOUGLAS [facility] FENTanyl PF (SUBLIMAZE (PF)) injection 25 mcg 09-27 02:45: 00 09-27 02:42 :00 No 25ug 25 mcg, Slow IV Push, ONCE, 1 dose, On 09/26/22 at 2145, STAT [facility] ketorolac (TORADOL) injection 30 mg 09-27 01:15: 00 09-27 00:42 :00 No 30mg 30 mg, Slow IV Push, ONCE, 1 dose, On 09/26/22 at 2014, Routine [facility] NaCl 0.9% (NS) IV infusion 1,000 mL 09-27 01:15: 00 09-27 02:37 :41 No 1000mL at 999 mL/hr, Intravenou s, CONTINUOUS , Starting on 09/26/22 at 2014, Until 09/26/22 at 213, [facility] ketorolac (TORADOL) injection 30 mg 2022-0 09-27 01:15: 00 09-27 00:42 :00 No 30mg 30 mg, Slow IV Push, ONCE, 1 dose, On 09/26/22 at 2014, Routine [facility] NaCl 0.9% (NS) IV infusion 1,000 mL 09-27 01:15: 00 09-27 02:37 :41 No 1000mL at 999 mL/hr, Intravenou s, CONTINUOUS , Starting on 09/26/22 at 2014, Until 09/26/22 at 2136, [facility] ondansetron (ZOFRAN (PF)) injection 4 mg 09-27 00:30: 00 09-27 00:34 :00 No 4mg 4 mg, Slow IV Push, ONCE, 1 dose, On 09/26/22 at 1930, [facility] ondansetron (ZOFRAN (PF)) injection 4 mg 09-27 00:30: 00 09-27 00:34 :00 No 4mg 4 mg, Slow IV Push, ONCE, 1 dose, On 09/26/22 at 1930, [facility] morpHINE (4 mg/mL) injection 4 mg 09-27 00:15: 00 09-27 00:35 :00 No 4mg 4 mg, Slow IV Push, ONCE, 1 dose, On 09/26/22 at 1915, STAT [facility] morpHINE (4 mg/mL) injection 4 mg 2022-09-27 00:15: 00 09-27 00:35 :00 No 4mg 4 mg, Slow IV Push, ONCE, 1 dose, On 09/26/22 at 1915, STAT [facility] SERTraline (ZOLOFT) 50 mg tablet 05 00:00: 00 Yes [id number] 100 50mg Take 1 tablet by mouth in the morning. [facility] SERTraline (ZOLOFT) 50 mg tablet 0 4-05 00:00: 00 Yes [id number] 100 50mg Take 1 tablet by mouth in the morning. [facility] SERTraline (ZOLOFT) 50 mg tablet 0 4-05 00:00: 00 Yes [id number] 100 50mg Take 1 tablet by mouth in the morning. [facility] SERTraline (ZOLOFT) 50 mg tablet 0 4-05 00:00: 00 Yes [id number] 100 50mg Take 1 tablet by mouth in the morning. [facility] SERTraline (ZOLOFT) 50 mg tablet 0 4-05 00:00: 00 Yes [id number] 100 50mg Take 1 tablet by mouth in the morning. [facility] SERTraline (ZOLOFT) 50 mg tablet 0 4-05 00:00: 00 Yes [id number] 100 50mg Take 1 tablet by mouth in the morning. [facility] SERTraline (ZOLOFT) 50 mg tablet 0 4-05 00:00: 00 Yes [id number] 100 50mg Take 1 tablet by mouth in the morning. [facility] SERTraline (ZOLOFT) 50 mg tablet 0 4-05 00:00: 00 Yes [id number] 100 50mg Take 1 tablet by mouth in the morning. [facility] SERTraline (ZOLOFT) 50 mg tablet 0 4-05 00:00: 00 10-22 00:00 :00 No [id number] 100 50mg Take 1 tablet by mouth in the morning. [facility] SERTraline (ZOLOFT) 50 mg tablet 0 4-05 00:00: 00 10-22 00:00 :00 No [id number] 100 50mg Take 1 tablet by mouth in the morning. [facility] proMETHazin e 25 mg tablet 2-21 00:00: 00 Yes [id number] 25mg Take 1 tablet by mouth every 4 (four) hours as needed for Nausea and Vomiting (N/V). [facility] Iron Fum & P-FA-Vit B & C No.9 (INTEGRA PLUS) 125 mg iron- 1 mg Cap 3-0 2-21 00:00: 00 Yes [id number] 1{capsu le} Take 1 capsule by mouth daily. [facility] proMETHazin e 25 mg tablet 0 2- 00:00: 00 Yes [id number] 25mg Take 1 tablet by mouth every 4 (four) hours as needed for Nausea and Vomiting (N/V). [facility] Iron Fum & P-FA-Vit B & C No.9 (INTEGRA PLUS) 125 mg iron- 1 mg Cap 3-0 2-21 00:00: 00 Yes [id number] 1{capsu le} Take 1 capsule by mouth daily. [facility] proMETHazin e 25 mg tablet 2022-0 2- 00:00: 00 Yes [id number] 25mg Take 1 tablet by mouth every 4 (four) hours as needed for Nausea and Vomiting (N/V). [facility] Iron Fum & P-FA-Vit B & C No.9 (INTEGRA PLUS) 125 mg iron- 1 mg Cap 2022-0 2- 00:00: 00 Yes [id number] 1{capsu le} Take 1 capsule by mouth daily. [facility] [facility] proMETHazin e 25 mg tablet 2022-0 2- 00:00: 00 Yes [id number] 25mg Take 1 tablet by mouth every 4 (four) hours as needed for Nausea and Vomiting (N/V). [facility] Iron Fum & P-FA-Vit B & C No.9 (INTEGRA PLUS) 125 mg iron- 1 mg Cap 2022-0 2-21 00:00: 00 Yes [id number] 1{capsu le} Take 1 capsule by mouth daily. [facility] proMETHazin e 25 mg tablet 2022-0 2- 00:00: 00 Yes [id number] 25mg Take 1 tablet by mouth every 4 (four) hours as needed for Nausea and Vomiting (N/V). [facility] Iron Fum & P-FA-Vit B & C No.9 (INTEGRA PLUS) 125 mg iron- 1 mg Cap 3-0 2-21 00:00: 00 Yes [id number] 1{capsu le} Take 1 capsule by mouth daily. [facility] proMETHazin e 25 mg tablet 3-0 2-21 00:00: 00 Yes [id number] 25mg Take 1 tablet by mouth every 4 (four) hours as needed for Nausea and Vomiting (N/V). [facility] Iron Fum & P-FA-Vit B & C No.9 (INTEGRA PLUS) 125 mg iron- 1 mg Cap 3-0 2-21 00:00: 00 Yes [id number] 1{capsu le} Take 1 capsule by mouth daily. [facility] proMETHazin e 25 mg tablet 3-0 2-21 00:00: 00 Yes [id number] 25mg Take 1 tablet by mouth every 4 (four) hours as needed for Nausea and Vomiting (N/V). [facility] Iron Fum & P-FA-Vit B & C No.9 (INTEGRA PLUS) 125 mg iron- 1 mg Cap 3-0 2-21 00:00: 00 Yes [id number] 1{capsu le} Take 1 capsule by mouth daily. [facility] proMETHazin e 25 mg tablet 2022-0 2-21 00:00: 00 Yes [id number] 25mg Take 1 tablet by mouth every 4 (four) hours as needed for Nausea and Vomiting (N/V). [facility] Iron Fum & P-FA-Vit B & C No.9 (INTEGRA PLUS) 125 mg iron- 1 mg Cap 3-0 2-21 00:00: 00 Yes [id number] 1{capsu le} Take 1 capsule by mouth daily. [facility] proMETHazin e 25 mg tablet 3-0 2-21 00:00: 00 Yes [id number] 25mg Take 1 tablet by mouth every 4 (four) hours as needed for Nausea and Vomiting (N/V). [facility] Iron Fum & P-FA-Vit B & C No.9 (INTEGRA PLUS) 125 mg iron- 1 mg Cap 3-0 2-21 00:00: 00 Yes [id number] 1{capsu le} Take 1 capsule by mouth daily. [facility] proMETHazin e 25 mg tablet 3-0 2-21 00:00: 00 Yes [id number] 25mg Take 1 tablet by mouth every 4 (four) hours as needed for Nausea and Vomiting (N/V). [facility] Iron Fum & P-FA-Vit B & C No.9 (INTEGRA PLUS) 125 mg iron- 1 mg Cap 3-0 2-21 00:00: 00 Yes [id number] 1{capsu le} Take 1 capsule by mouth daily. [facility] proMETHazin e 25 mg tablet 3-0 2-21 00:00: 00 Yes [id number] 25mg Take 1 tablet by mouth every 4 (four) hours as needed for Nausea and Vomiting (N/V). [facility] Iron Fum & P-FA-Vit B & C No.9 (INTEGRA PLUS) 125 mg iron- 1 mg Cap 3-0 2-21 00:00: 00 Yes [id number] 1{capsu le} Take 1 capsule by mouth daily. [facility] proMETHazin e 25 mg tablet 3-0 2- 00:00: 00 Yes [id number] 25mg Take 1 tablet by mouth every 4 (four) hours as needed for Nausea and Vomiting (N/V). [facility] Iron Fum & P-FA-Vit B & C No.9 (INTEGRA PLUS) 125 mg iron- 1 mg Cap 3-0 2-21 00:00: 00 Yes [id number] 1{capsu le} Take 1 capsule by mouth daily. [facility] proMETHazin e 25 mg tablet 3-0 2-21 00:00: 00 Yes [id number] 25mg Take 1 tablet by mouth every 4 (four) hours as needed for Nausea and Vomiting (N/V). [facility] Iron Fum & P-FA-Vit B & C No.9 (INTEGRA PLUS) 125 mg iron- 1 mg Cap 3-0 2-21 00:00: 00 Yes [id number] 1{capsu le} Take 1 capsule by mouth daily. [facility] proMETHazin e 25 mg tablet 3-0 2-21 00:00: 00 Yes [id number] 25mg Take 1 tablet by mouth every 4 (four) hours as needed for Nausea and Vomiting (N/V). [facility] Iron Fum & P-FA-Vit B & C No.9 (INTEGRA PLUS) 125 mg iron- 1 mg Cap 2022-0 2-21 00:00: 00 Yes [id number] 1{capsu le} Take 1 capsule by mouth daily. [facility] proMETHazin e 25 mg tablet 2022-0 2-21 00:00: 00 Yes [id number] 25mg Take 1 tablet by mouth every 4 (four) hours as needed for Nausea and Vomiting (N/V). [facility] Iron Fum & P-FA-Vit B & C No.9 (INTEGRA PLUS) 125 mg iron- 1 mg Cap 2022-0 2-21 00:00: 00 Yes [id number] 1{capsu le} Take 1 capsule by mouth daily. [facility] proMETHazin e 25 mg tablet 2022-0 2- 00:00: 00 Yes [id number] 25mg Take 1 tablet by mouth every 4 (four) hours as needed for Nausea and Vomiting (N/V). [facility] Iron Fum & P-FA-Vit B & C No.9 (INTEGRA PLUS) 125 mg iron- 1 mg Cap 2022-0 2- 00:00: 00 Yes [id number] 1{capsu le} Take 1 capsule by mouth daily. [facility] proMETHazin e 25 mg tablet 2022-0 2- 00:00: 00 Yes [id number] 25mg Take 1 tablet by mouth every 4 (four) hours as needed for Nausea and Vomiting (N/V). [facility] Iron Fum & P-FA-Vit B & C No.9 (INTEGRA PLUS) 125 mg iron- 1 mg Cap 2022-0 2-21 00:00: 00 Yes [id number] 1{capsu le} Take 1 capsule by mouth daily. [facility] proMETHazin e 25 mg tablet 2022-0 2-21 00:00: 00 11-12 00:00 :00 No [id number] 25mg Take 1 tablet by mouth every 4 (four) hours as needed for Nausea and Vomiting (N/V). [facility] Iron Fum & P-FA-Vit B & C No.9 (INTEGRA PLUS) 125 mg iron- 1 mg Cap 2- 00:00: 00 11-12 00:00 :00 No [id number] 1{capsu le} Take 1 capsule by mouth daily. [facility] proMETHazin e 25 mg tablet 2- 00:00: 00 11-12 00:00 :00 No [id number] 25mg Take 1 tablet by mouth every 4 (four) hours as needed for Nausea and Vomiting (N/V). [facility] Iron Fum & P-FA-Vit B & C No.9 (INTEGRA PLUS) 125 mg iron- 1 mg Cap - 00:00: 00 11-12 00:00 :00 No [id number] 1{capsu le} Take 1 capsule by mouth daily. [facility] proMETHazin e 25 mg tablet 2- 00:00: 00 11-12 00:00 :00 No [id number] 25mg Take 1 tablet by mouth every 4 (four) hours as needed for Nausea and Vomiting (N/V). [facility] Iron Fum & P-FA-Vit B & C No.9 (INTEGRA PLUS) 125 mg iron- 1 mg Cap 08-11 00:00: 00 11-12 00:00 :00 No [id number] 1{capsu le} Take 1 capsule by mouth daily. [facility] proMETHazin e 25 mg tablet 2- 00:00: 00 11-12 00:00 :00 No [id number] 25mg Take 1 tablet by mouth every 4 (four) hours as needed for Nausea and Vomiting (N/V). [facility] Iron Fum & P-FA-Vit B & C No.9 (INTEGRA PLUS) 125 mg iron- 1 mg Cap 2- 00:00: 00 11-12 00:00 :00 No [id number] 1{capsu le} Take 1 capsule by mouth daily. [facility] HYDROcodone -acetaminop hen (NORCO) 10-325 mg tablet 1 tablet 2021-06 09:30: 00 04-27 08:47 :00 No 1{tbl} 1 tablet, Oral, ONCE, 1 dose, On Wed04/27/22 at 0330, Routine [facility] ketorolac (TORADOL) injection 30 mg 2021-06 09:00: 00 04-27 08:25 :00 No 30mg 30 mg, Slow IV Push, ONCE, 1 dose, On Wed04/27/22 at 0300, Routine [facility] tranexamic acid 650 mg tablet 2021-06 00:00: 00 05-03 05:59 :00 No [id number] 100 1300mg Take 2 tablets by mouth in the morning and 2 tablets at noon and 2 tablets in the evening. Do all this for 5 days. [facility] omeprazole 10 mg capsule 12-30 19:26: 59 12-30 00:00 :00 No 10mg Take 10 mg by mouth daily. [facility] norelgestro min-ethinyl estradiol (XULANE) 150-35 mcg/24 hr patch 12-30 00:00: 00 Yes [id number] 1{patch } Apply 1 Patch to skin weekly. [facility] 3 [facility] norelgestro min-ethinyl estradiol (XULANE) 150-35 mcg/24 hr patch 12-30 00:00: 00 Yes [id number] 1{patch } Apply 1 Patch to skin weekly. For 3 weeks, followed by 1 week no [facility] norelgestro min-ethinyl estradiol (XULANE) 150-35 mcg/24 hr patch 12-30 00:00: 00 Yes [id number] 1{patch } Apply 1 Patch to skin weekly. For 3 weeks, followed by 1 week no [facility] norelgestro min-ethinyl estradiol (XULANE) 150-35 mcg/24 hr patch 12-30 00:00: 00 Yes [id number] 1{patch } Apply 1 Patch to skin weekly. For 3 weeks, followed by 1 week no [facility] norelgestro min-ethinyl estradiol (XULANE) 150-35 mcg/24 hr patch 12-30 00:00: 00 Yes [id number] 1{patch } Apply 1 Patch to skin weekly. For 3 weeks, followed by 1 week no [facility] norelgestro min-ethinyl estradiol (XULANE) 150-35 mcg/24 hr patch 12-30 00:00: 00 Yes [id number] 1{patch } Apply 1 Patch to skin weekly. For 3 weeks, followed by 1 week no [facility] norelgestro min-ethinyl estradiol (XULANE) 150-35 mcg/24 hr patch 12-30 00:00: 00 Yes [id number] 1{patch } Apply 1 Patch to skin weekly. For 3 weeks, followed by 1 week no [facility] norelgestro min-ethinyl estradiol (XULANE) 150-35 mcg/24 hr patch 12-30 00:00: 00 Yes [id number] 1{patch } Apply 1 Patch to skin weekly. For 3 weeks, followed by 1 week no [facility] norelgestro min-ethinyl estradiol (XULANE) 150-35 mcg/24 hr patch 12-30 00:00: 00 04-27 00:00 :00 No [id number] 1{patch } Apply 1 Patch to skin weekly. For 3 weeks, followed by 1 week no [facility] ibuprofen 600 mg tablet 9-27 00:00: 00 12-30 00:00 :00 No [id number] 600mg Take 1 tablet by mouth every 6 (six) hours as needed for Pain (scale 4-6). [facility] cetirizine HCl (ZYRTEC ORAL) 06-27 15:45: 25 Yes Take by mouth. [facility] cetirizine HCl (ZYRTEC ORAL) 06-27 15:45: 25 Yes Take by mouth. [facility] cetirizine HCl (ZYRTEC ORAL) 06-27 15:45: 25 Yes Take by mouth. [facility] cetirizine HCl (ZYRTEC ORAL) 06-27 15:45: 25 Yes Take by mouth. [facility] cetirizine HCl (ZYRTEC ORAL) 06-27 15:45: 25 Yes Take by mouth. [facility] cetirizine HCl (ZYRTEC ORAL) 06-27 15:45: 25 Yes Take by mouth. [facility] cetirizine HCl (ZYRTEC ORAL) 06-27 15:45: 25 Yes Take by mouth. [facility] cetirizine HCl (ZYRTEC ORAL) 06-27 15:45: 25 Yes Take by mouth. [facility] cetirizine HCl (ZYRTEC ORAL) 06-27 15:45: 25 Yes Take by mouth. [facility] cetirizine HCl (ZYRTEC ORAL) 06-27 15:45: 25 Yes Take by mouth. [facility] cetirizine HCl (ZYRTEC ORAL) 06-27 15:45: 25 Yes Take by mouth. [facility] cetirizine HCl (ZYRTEC ORAL) 06-27 15:45: 25 Yes Take by mouth. [facility] cetirizine HCl (ZYRTEC ORAL) 06-27 15:45: 25 Yes Take by mouth. [facility] cetirizine HCl (ZYRTEC ORAL) 06-27 15:45: 25 Yes Take by mouth. [facility] cetirizine HCl (ZYRTEC ORAL) 06-27 15:45: 25 Yes Take by mouth. [facility] cetirizine HCl (ZYRTEC ORAL) 06-27 15:45: 25 Yes Take by mouth. [facility] cetirizine HCl (ZYRTEC ORAL) 06-27 15:45: 25 Yes Take by mouth. [facility] cetirizine HCl (ZYRTEC ORAL) 06-27 15:45: 25 Yes Take by mouth. [facility] cetirizine HCl (ZYRTEC ORAL) 06-27 15:45: 25 Yes Take by mouth. [facility] ibuprofen 600 mg tablet 2019-06 00:00: 06-27 00:00 :00 No [id number] 600mg Take 1 tablet by mouth every 6 (six) hours as needed for Pain (scale 4-6). [facility] ondansetron (ZOFRAN ODT) 4 mg disintegrat ing tablet 2019-06 00:00: 06-27 00:00 :00 No [id number] 4mg Take 1 tablet by mouth every 8 (eight) hours as needed for Nausea and Vomiting (N/V). [facility] traMADol 50 mg tablet 12-04 00:00: 00 06-27 00:00 :00 No [id number] 50mg Take 1 tablet by mouth every 6 (six) hours as needed (pain). [facility] proMETHazin e 25 mg tablet 16 00:00: 06-27 00:00 :00 No [id number] 25mg Take 1 tablet by mouth every 6 (six) hours as needed for Nausea and Vomiting (N/V). [facility] ibuprofen 600 mg tablet 11-14 00:00: 06-27 00:00 :00 No [id number] 600mg Take 1 tablet by mouth every 6 (six) hours as needed for Pain (scale 4-6). [facility] acetaminoph en-codeine 300-30 mg tablet 5-27 00:00: 00 06-27 00:00 :00 No [id number] 1{tbl} Take 1 tablet by mouth every 4 (four) hours as needed for Pain (scale 4-6). [facility] ondansetron 4 mg disintegrat ing tablet 08-30 00:00: 00 06-27 00:00 :00 No [id number] 4mg Take 1 tablet by mouth every 4 (four) hours as needed for Nausea and Vomiting (N/V). [facility] acetaminoph en-codeine 300-30 mg tablet 08-30 00:00: 00 06-27 00:00 :00 No [id number] 1{tbl} Take 1-2 tablets by mouth every 6 (six) hours as needed (cough). [facility] ibuprofen 800 mg tablet 08-30 00:00: 00 06-27 00:00 :00 No [id number] 800mg Take 1 tablet by mouth every 8 (eight) hours as needed for Pain (scale 4-6). [facility] sod chlor-bicar b-squeez bottle (NEILMED SINUS RINSE COMPLETE) pkdv 2018-06 00:00: 00 06-27 00:00 :00 No [id number] 1{bottl e} Use 1 Bottle in each nostril 2 (two) times daily. Use in hot shower 1 hour before bedtime [facility] promethazin e-codeine 6.25-10 mg/5 mL syrup 2018-06 00:00: 00 06-27 00:00 :00 No [id number] 5mL Take 5 mL by mouth 4 (four) times daily as needed for Cough. [facility] traMADol (ULTRAM) 50 mg tablet 2018-06 00:00: 00 06-27 00:00 :00 No [id number] 50mg Take 1 tablet by mouth every 8 (eight) hours as needed for Pain (scale 4-6). [facility] Immunizations Ordered Immunization Name Filled Immunization Name Date Status Comments Source [facility] 2020-06-27 00:00:00 Completed [facility] 2020-06-27 00:00:00 Completed [facility] 2020-06-27 00:00:00 Completed [facility] HPV9 2020-06-27 00:00:00 Completed [facility] HPV9 2020-06-27 00:00:00 Completed [facility] HPV9 2020-06-27 00:00:00 Completed [facility] HPV9 2020-06-27 00:00:00 Completed [facility] HPV9 2020-06-27 00:00:00 Completed [facility] HPV9 2020-06-27 00:00:00 Completed [facility] HPV9 2020-06-27 00:00:00 Completed [facility] HPV9 2020-06-27 00:00:00 Completed [facility] HPV9 2020-06-27 00:00:00 Completed [facility] HPV9 2020-06-27 00:00:00 Completed [facility] HPV9 2020-06-27 00:00:00 Completed [facility] HPV9 2020-06-27 00:00:00 Completed [facility] HPV9 2020-06-27 00:00:00 Completed [facility] HPV9 2020-06-27 00:00:00 Completed [facility] HPV9 2020-06-27 00:00:00 Completed [facility] HPV9 2020-06-27 00:00:00 Completed [facility] HPV9 2020-06-27 00:00:00 Completed [facility] HPV9 2020-06-27 00:00:00 Completed [facility] HPV9 2020-06-27 00:00:00 Completed [facility] HPV9 2020-06-27 00:00:00 Completed [facility] HPV9 2020-06-27 00:00:00 Completed [facility] HPV9 2020-06-27 00:00:00 Completed [facility] HPV9 2020-06-27 00:00:00 Completed [facility] HPV9 2020-06-27 00:00:00 Completed [facility] HPV9 2020-06-27 00:00:00 Completed [facility] HPV9 2020-06-27 00:00:00 Completed [facility] HPV9 2020-06-27 00:00:00 Completed [facility] HPV9 2020-06-27 00:00:00 Completed [facility] HPV9 2020-06-27 00:00:00 Completed [facility] HPV9 2020-06-27 00:00:00 Completed [facility] HPV9 2020-06-27 00:00:00 Completed [facility] HPV9 2020-06-27 00:00:00 Completed [facility] HPV9 2020-06-27 00:00:00 Completed [facility] HPV9 2020-06-27 00:00:00 Completed [facility] HPV9 2020-06-27 00:00:00 Completed [facility] HPV9 2020-06-27 00:00:00 Completed [facility] HPV9 2020-06-27 00:00:00 Completed [facility] HPV9 2020-06-27 00:00:00 Completed [facility] HPV9 2020-06-27 00:00:00 Completed [facility] HPV9 2020-06-27 00:00:00 Completed [facility] HPV9 2020-06-27 00:00:00 Completed [facility] HPV9 2020-06-27 00:00:00 Completed [facility] HPV9 2020-06-27 00:00:00 Completed [facility] HPV9 2020-06-27 00:00:00 Completed [facility] HPV9 2020-06-27 00:00:00 Completed [facility] HPV9 2020-06-27 00:00:00 Completed [facility] HPV9 2020-06-27 00:00:00 Completed [facility] HPV9 2020-06-27 00:00:00 Completed [facility] HPV9 2020-06-27 00:00:00 Completed [facility] HPV9 2020-06-27 00:00:00 Completed [facility] HPV9 2020-06-27 00:00:00 Completed [facility] HPV9 2020-06-27 00:00:00 Completed [facility] HPV9 2020-06-27 00:00:00 Completed [facility] HPV9 2020-06-27 00:00:00 Completed [facility] HPV9 2020-06-27 00:00:00 Completed [facility] HPV9 2020-06-27 00:00:00 Completed [facility] HPV9 2020-06-27 00:00:00 Completed [facility] HPV9 2020-06-27 00:00:00 Completed [facility] TDAP 2017-12-21 00:00:00 Completed [facility] TDAP 2017-12-21 00:00:00 Completed [facility] TDAP 2017-12-21 00:00:00 Completed [facility] TDAP 2017-12-21 00:00:00 Completed [facility] TDAP 2017-12-21 00:00:00 Completed [facility] TDAP 2017-12-21 00:00:00 Completed [facility] TDAP 2017-12-21 00:00:00 Completed [facility] TDAP 2017-12-21 00:00:00 Completed [facility] TDAP 2017-12-21 00:00:00 Completed [facility] TDAP 2017-12-21 00:00:00 Completed [facility] TDAP 2017-12-21 00:00:00 Completed [facility] TDAP 2017-12-21 00:00:00 Completed [facility] TDAP 2017-12-21 00:00:00 Completed [facility] TDAP 2017-12-21 00:00:00 Completed [facility] TDAP 2017-12-21 00:00:00 Completed [facility] TDAP 2017-12-21 00:00:00 Completed [facility] TDAP 2017-12-21 00:00:00 Completed [facility] TDAP 2017-12-21 00:00:00 Completed [facility] TDAP 2017-12-21 00:00:00 Completed [facility] TDAP 2017-12-21 00:00:00 Completed [facility] TDAP 2017-12-21 00:00:00 Completed [facility] TDAP 2017-12-21 00:00:00 Completed [facility] TDAP 2017-12-21 00:00:00 Completed [facility] TDAP 2017-12-21 00:00:00 Completed [facility] TDAP 2017-12-21 00:00:00 Completed [facility] TDAP 2017-12-21 00:00:00 Completed [facility] TDAP 2017-12-21 00:00:00 Completed [facility] TDAP 2017-12-21 00:00:00 Completed [facility] TDAP 2017-12-21 00:00:00 Completed [facility] TDAP 2017-12-21 00:00:00 Completed [facility] TDAP 2017-12-21 00:00:00 Completed [facility] TDAP 2017-12-21 00:00:00 Completed [facility] TDAP 2017-12-21 00:00:00 Completed [facility] TDAP 2017-12-21 00:00:00 Completed [facility] TDAP 2017-12-21 00:00:00 Completed [facility] TDAP 2017-12-21 00:00:00 Completed [facility] TDAP 2017-12-21 00:00:00 Completed [facility] TDAP 2017-12-21 00:00:00 Completed [facility] TDAP 2017-12-21 00:00:00 Completed [facility] TDAP 2017-12-21 00:00:00 Completed [facility] TDAP 2017-12-21 00:00:00 Completed [facility] TDAP 2017-12-21 00:00:00 Completed [facility] TDAP 2017-12-21 00:00:00 Completed [facility] TDAP 2017-12-21 00:00:00 Completed [facility] TDAP 2017-12-21 00:00:00 Completed [facility] TDAP 2017-12-21 00:00:00 Completed [facility] TDAP 2017-12-21 00:00:00 Completed [facility] TDAP 2017-12-21 00:00:00 Completed [facility] TDAP 2017-12-21 00:00:00 Completed [facility] TDAP 2017-12-21 00:00:00 Completed [facility] TDAP 2017-12-21 00:00:00 Completed [facility] TDAP 2017-12-21 00:00:00 Completed [facility] TDAP 2017-12-21 00:00:00 Completed [facility] TDAP 2017-12-21 00:00:00 Completed [facility] TDAP 2017-12-21 00:00:00 Completed [facility] TDAP 2017-12-21 00:00:00 Completed [facility] TDAP 2017-12-21 00:00:00 Completed [facility] TDAP 2017-12-21 00:00:00 Completed [facility] TDAP 2017-12-21 00:00:00 Completed [facility] TDAP 2017-12-21 00:00:00 Completed [facility] TDAP 2017-12-21 00:00:00 Completed [facility] TDAP 2016-07-09 00:00:00 Completed [facility] TDAP 2016-07-09 00:00:00 Completed [facility] TDAP 2016-07-09 00:00:00 Completed [facility] TDAP 2016-07-09 00:00:00 Completed [facility] TDAP 2016-07-09 00:00:00 Completed [facility] TDAP 2016-07-09 00:00:00 Completed [facility] TDAP 2016-07-09 00:00:00 Completed [facility] TDAP 2016-07-09 00:00:00 Completed [facility] TDAP 2016-07-09 00:00:00 Completed [facility] TDAP 2016-07-09 00:00:00 Completed [facility] TDAP 2016-07-09 00:00:00 Completed [facility] TDAP 2016-07-09 00:00:00 [facility] [facility] TDAP 2016-07-09 00:00:00 Completed [facility] TDAP 2016-07-09 00:00:00 Completed [facility] TDAP 2016-07-09 00:00:00 Completed [facility] TDAP 2016-07-09 00:00:00 Completed [facility] TDAP 2016-07-09 00:00:00 Completed [facility] TDAP 2016-07-09 00:00:00 Completed [facility] TDAP 2016-07-09 00:00:00 Completed [facility] TDAP 2016-07-09 00:00:00 Completed [facility] TDAP 2016-07-09 00:00:00 Completed [facility] TDAP 2016-07-09 00:00:00 Completed [facility] TDAP 2016-07-09 00:00:00 Completed [facility] TDAP 2016-07-09 00:00:00 Completed [facility] TDAP 2016-07-09 00:00:00 Completed [facility] TDAP 2016-07-09 00:00:00 Completed [facility] TDAP 2016-07-09 00:00:00 Completed [facility] TDAP 2016-07-09 00:00:00 Completed [facility] TDAP 2016-07-09 00:00:00 Completed [facility] TDAP 2016-07-09 00:00:00 Completed [facility] TDAP 2016-07-09 00:00:00 Completed [facility] TDAP 2016-07-09 00:00:00 Completed [facility] TDAP 2016-07-09 00:00:00 Completed [facility] TDAP 2016-07-09 00:00:00 Completed [facility] TDAP 2016-07-09 00:00:00 Completed [facility] TDAP 2016-07-09 00:00:00 Completed [facility] TDAP 2016-07-09 00:00:00 Completed [facility] TDAP 2016-07-09 00:00:00 Completed [facility] TDAP 2016-07-09 00:00:00 Completed [facility] TDAP 2016-07-09 00:00:00 Completed [facility] TDAP 2016-07-09 00:00:00 Completed [facility] TDAP 2016-07-09 00:00:00 Completed [facility] TDAP 2016-07-09 00:00:00 Completed [facility] TDAP 2016-07-09 00:00:00 Completed [facility] TDAP 2016-07-09 00:00:00 Completed [facility] TDAP 2016-07-09 00:00:00 Completed [facility] TDAP 2016-07-09 00:00:00 Completed [facility] TDAP 2016-07-09 00:00:00 Completed [facility] TDAP 2016-07-09 00:00:00 Completed [facility] TDAP 2016-07-09 00:00:00 Completed [facility] TDAP 2016-07-09 00:00:00 Completed [facility] TDAP 2016-07-09 00:00:00 Completed [facility] TDAP 2016-07-09 00:00:00 Completed [facility] TDAP 2016-07-09 00:00:00 Completed [facility] TDAP 2016-07-09 00:00:00 Completed [facility] TDAP 2016-07-09 00:00:00 Completed [facility] TDAP 2016-07-09 00:00:00 Completed [facility] TDAP 2016-07-09 00:00:00 Completed [facility] TDAP 2016-07-09 00:00:00 Completed [facility] TDAP 2016-07-09 00:00:00 Completed [facility] TDAP 2016-07-09 00:00:00 Completed [facility] Influenza Virus Vaccine Quad IM 3+ YRS 2016-03-25 00:00:00 Completed [facility] Influenza Virus Vaccine Quad IM 3+ YRS 2016-03-25 00:00:00 Completed [facility] Influenza Virus Vaccine Quad IM 3+ YRS 2016-03-25 00:00:00 Completed [facility] Influenza Virus Vaccine Quad IM 3+ YRS 2016-03-25 00:00:00 Completed [facility] Influenza Virus Vaccine Quad IM 3+ YRS 2016-03-25 00:00:00 Completed [facility] Influenza Virus Vaccine Quad IM 3+ YRS 2016-03-25 00:00:00 Completed [facility] Influenza Virus Vaccine Quad IM 3+ YRS 2016-03-25 00:00:00 Completed [facility] Influenza Virus Vaccine Quad IM 3+ YRS 2016-03-25 00:00:00 Completed [facility] Influenza Virus Vaccine Quad IM 3+ YRS 2016-03-25 00:00:00 Completed [facility] Influenza Virus Vaccine Quad IM 3+ YRS 2016-03-25 00:00:00 Completed [facility] Influenza Virus Vaccine Quad IM 3+ YRS 2016-03-25 00:00:00 Completed [facility] Influenza Virus Vaccine Quad IM 3+ YRS 2016-03-25 00:00:00 Completed [facility] Influenza Virus Vaccine Quad IM 3+ YRS 2016-03-25 00:00:00 Completed [facility] Influenza Virus Vaccine Quad IM 3+ YRS 2016-03-25 00:00:00 Completed [facility] Influenza Virus Vaccine Quad IM 3+ YRS 2016-03-25 00:00:00 Completed [facility] Influenza Virus Vaccine Quad IM 3+ YRS 2016-03-25 00:00:00 Completed [facility] Influenza Virus Vaccine Quad IM 3+ YRS 2016-03-25 00:00:00 Completed [facility] Influenza Virus Vaccine Quad IM 3+ YRS 2016-03-25 00:00:00 Completed [facility] Influenza Virus Vaccine Quad IM 3+ YRS 2016-03-25 00:00:00 Completed [facility] Influenza Virus Vaccine Quad IM 3+ YRS 2016-03-25 00:00:00 Completed [facility] Influenza Virus Vaccine Quad IM 3+ YRS 2016-03-25 00:00:00 Completed [facility] Influenza Virus Vaccine Quad IM 3+ YRS 2016-03-25 00:00:00 Completed [facility] Influenza Virus Vaccine Quad IM 3+ YRS 2016-03-25 00:00:00 Completed [facility] Influenza Virus Vaccine Quad IM 3+ YRS 2016-03-25 00:00:00 Completed [facility] Influenza Virus Vaccine Quad IM 3+ YRS 2016-03-25 00:00:00 Completed [facility] Influenza Virus Vaccine Quad IM 3+ YRS 2016-03-25 00:00:00 Completed [facility] Influenza Virus Vaccine Quad IM 3+ YRS 2016-03-25 00:00:00 Completed [facility] Influenza Virus Vaccine Quad IM 3+ YRS 2016-03-25 00:00:00 Completed [facility] Influenza Virus Vaccine Quad IM 3+ YRS 2016-03-25 00:00:00 Completed [facility] Influenza Virus Vaccine Quad IM 3+ YRS 2016-03-25 00:00:00 Completed [facility] Influenza Virus Vaccine Quad IM 3+ YRS 2016-03-25 00:00:00 Completed [facility] Influenza Virus Vaccine Quad IM 3+ YRS 2016-03-25 00:00:00 Completed [facility] Influenza Virus Vaccine Quad IM 3+ YRS 2016-03-25 00:00:00 Completed [facility] Influenza Virus Vaccine Quad IM 3+ YRS 2016-03-25 00:00:00 Completed [facility] Influenza Virus Vaccine Quad IM 3+ YRS 2016-03-25 00:00:00 Completed [facility] Influenza Virus Vaccine Quad IM 3+ YRS 2016-03-25 00:00:00 Completed [facility] Influenza Virus Vaccine Quad IM 3+ YRS 2016-03-25 00:00:00 Completed [facility] Influenza Virus Vaccine Quad IM 3+ YRS 2016-03-25 00:00:00 Completed [facility] Influenza Virus Vaccine Quad IM 3+ YRS 2016-03-25 00:00:00 Completed [facility] Influenza Virus Vaccine Quad IM 3+ YRS 2016-03-25 00:00:00 Completed [facility] Influenza Virus Vaccine Quad IM 3+ YRS 2016-03-25 00:00:00 Completed [facility] Influenza Virus Vaccine Quad IM 3+ YRS 2016-03-25 00:00:00 Completed [facility] Influenza Virus Vaccine Quad IM 3+ YRS 2016-03-25 00:00:00 Completed [facility] Influenza Virus Vaccine Quad IM 3+ YRS 2016-03-25 00:00:00 Completed [facility] Influenza Virus Vaccine Quad IM 3+ YRS 2016-03-25 00:00:00 Completed [facility] Influenza Virus Vaccine Quad IM 3+ YRS 2016-03-25 00:00:00 Completed [facility] Influenza Virus Vaccine Quad IM 3+ YRS 2016-03-25 00:00:00 Completed [facility] Influenza Virus Vaccine Quad IM 3+ YRS 2016-03-25 00:00:00 Completed [facility] Influenza Virus Vaccine Quad IM 3+ YRS 2016-03-25 00:00:00 Completed [facility] Influenza Virus Vaccine Quad IM 3+ YRS 2016-03-25 00:00:00 Completed [facility] Influenza Virus Vaccine Quad IM 3+ YRS 2016-03-25 00:00:00 Completed [facility] Influenza Virus Vaccine Quad IM 3+ YRS 2016-03-25 00:00:00 Completed [facility] Influenza Virus Vaccine Quad IM 3+ YRS 2016-03-25 00:00:00 Completed [facility] Influenza Virus Vaccine Quad IM 3+ YRS 2016-03-25 00:00:00 Completed [facility] Influenza Virus Vaccine Quad IM 3+ YRS 2016-03-25 00:00:00 Completed [facility] Influenza Virus Vaccine Quad IM 3+ YRS 2016-03-25 00:00:00 Completed [facility] Influenza Virus Vaccine Quad IM 3+ YRS 2016-03-25 00:00:00 Completed [facility] Influenza Virus Vaccine Quad IM 3+ YRS 2016-03-25 00:00:00 Completed [facility] Influenza Virus Vaccine Quad IM 3+ YRS 2016-03-25 00:00:00 Completed [facility] Influenza Virus Vaccine Quad IM 3+ YRS 2016-03-25 00:00:00 Completed [facility] Influenza Virus Vaccine Quad IM 3+ YRS 2016-03-25 00:00:00 Completed [facility] Influenza Virus Vaccine Quad IM 3+ YRS Unknown Completed [facility] TDAP Unknown Completed [facility] TDAP Unknown [facility]pleted [facility] HPV9 Unknown Completed [facility] Influenza Virus Vacc[facility] Quad IM 3+ YRS Unknown Completed [facility] TDAP Unknown [facility]pleted [facility] TDAP Unknown [facility]pleted [facility] HPV9 Unknown Completed [facility] Influenza Virus Vacc[facility] Quad IM 3+ YRS Unknown Completed [facility] TDAP Unknown [facility]pleted [facility] TDAP Unknown [facility]pleted [facility] HPV9 Unknown Completed [facility] Influenza Virus Vacc[facility] Quad IM 3+ YRS Unknown Completed [facility] TDAP Unknown [facility]pleted [facility] TDAP Unknown [facility]pleted [facility] HPV9 Unknown Completed [facility] Influenza Virus Vacc[facility] Quad IM 3+ YRS Unknown Completed [facility] TDAP Unknown [facility]pleted [facility] TDAP Unknown [facility]pleted [facility] HPV9 Unknown Completed [facility] Influenza Virus Vacc[facility] Quad IM 3+ YRS Unknown Completed [facility] TDAP Unknown Completed [facility] TDAP Unknown [facility]pleted [facility] HPV9 Unknown Completed [facility] Influenza Virus Vacc[facility] Quad IM 3+ YRS Unknown Completed [facility] TDAP Unknown Completed [facility] TDAP Unknown [facility]pleted [facility] HPV9 Unknown Completed [facility] Influenza Virus Vacc[facility] Quad IM 3+ YRS Unknown Completed [facility] TDAP Unknown Completed [facility] TDAP Unknown [facility]pleted [facility] HPV9 Unknown Completed [facility] Influenza Virus Vacc[facility] Quad IM 3+ YRS Unknown Completed [facility] TDAP Unknown Completed [facility] TDAP Unknown [facility]pleted [facility] HPV9 Unknown Completed [facility] Influenza Virus Vacc[facility] Quad IM 3+ YRS Unknown Completed [facility] TDAP Unknown Completed [facility] TDAP Unknown [facility]pleted [facility] HPV9 Unknown Completed [facility] Influenza Virus Vacc[facility] Quad IM 3+ YRS Unknown Completed [facility] TDAP Unknown Completed [facility] TDAP Unknown Completed [facility] HPV9 Unknown Completed [facility] Influenza Virus Vacc[facility] Quad IM 3+ YRS Unknown Completed [facility] TDAP Unknown Completed [facility] TDAP Unknown Completed [facility] Influenza Virus Vacc[facility] Quad IM 3+ YRS Unknown Completed [facility] TDAP Unknown Completed [facility] TDAP Unknown Completed [facility] HPV9 Unknown Completed [facility] Influenza Virus Vacc[facility] Quad IM 3+ YRS Unknown Completed [facility] TDAP Unknown Completed [facility] TDAP Unknown Completed [facility] HPV9 Unknown Completed [facility] Influenza Virus Vacc[facility] Quad IM 3+ YRS Unknown Completed [facility] TDAP Unknown Completed [facility] TDAP Unknown Completed [facility] HPV9 Unknown Completed [facility] Influenza Virus Vacc[facility] Quad IM 3+ YRS Unknown Completed [facility] TDAP Unknown Completed [facility] TDAP Unknown Completed [facility] HPV9 Unknown Completed [facility] Influenza Virus Vacc[facility] Quad IM 3+ YRS Unknown Completed [facility] TDAP Unknown Completed [facility] TDAP Unknown Completed [facility] HPV9 Unknown Completed [facility] Influenza Virus Vacc[facility] Quad IM 3+ YRS Unknown Completed [facility] TDAP Unknown Completed [facility] TDAP Unknown Completed [facility] HPV9 Unknown Completed [facility] Influenza Virus Vacc[facility] Quad IM 3+ YRS Unknown Completed [facility] TDAP Unknown Completed [facility] TDAP Unknown Completed [facility] HPV9 Unknown Completed [facility] Influenza Virus Vacc[facility] Quad IM 3+ YRS Unknown Completed [facility] TDAP Unknown Completed [facility] TDAP Unknown Completed [facility] HPV9 Unknown Completed [facility] Influenza Virus Vacc[facility] Quad IM 3+ YRS Unknown Completed [facility] TDAP Unknown Completed [facility] TDAP Unknown Completed [facility] HPV9 Unknown Completed [facility] Influenza Virus Vacc[facility] Quad IM 3+ YRS Unknown Completed [facility] TDAP Unknown Completed [facility] TDAP Unknown Completed [facility] HPV9 Unknown Completed [facility] Influenza Virus Vacc[facility] Quad IM 3+ YRS Unknown Completed [facility] TDAP Unknown Completed [facility] TDAP Unknown Completed [facility] HPV9 Unknown Completed [facility] Influenza Virus Vacc[facility] Quad IM 3+ YRS Unknown Completed [facility] TDAP Unknown Completed [facility] TDAP Unknown Completed [facility] HPV9 Unknown Completed [facility] Influenza Virus Vacc[facility] Quad IM 3+ YRS Unknown Completed [facility] TDAP Unknown Completed [facility] TDAP Unknown Completed [facility] HPV9 Unknown Completed [facility] Influenza Virus Vacc[facility] Quad IM 3+ YRS Unknown Completed [facility] TDAP Unknown Completed [facility] TDAP Unknown Completed [facility] HPV9 Unknown Completed [facility] Influenza Virus Vacc[facility] Quad IM 3+ YRS Unknown Completed [facility] TDAP Unknown Completed [facility] TDAP Unknown Completed [facility] HPV9 Unknown Completed [facility] Influenza Virus Vacc[facility] Quad IM 3+ YRS Unknown Completed [facility] TDAP Unknown Completed [facility] TDAP Unknown Completed [facility] HPV9 Unknown Completed [facility] Influenza Virus Vacc[facility] Quad IM 3+ YRS Unknown Completed [facility] TDAP Unknown Completed [facility] TDAP Unknown Completed [facility] HPV9 Unknown Completed [facility] Influenza Virus Vacc[facility] Quad IM 3+ YRS Unknown Completed [facility] TDAP Unknown Completed [facility] TDAP Unknown Completed [facility] HPV9 Unknown Completed [facility] Influenza Virus Vacc[facility] Quad IM 3+ YRS Unknown Completed [facility] TDAP Unknown Completed [facility] TDAP Unknown Completed [facility] HPV9 Unknown Completed [facility] Influenza Virus Vacc[facility] Quad IM 3+ YRS Unknown Completed [facility] TDAP Unknown Completed [facility] TDAP Unknown Completed [facility] HPV9 Unknown Completed [facility] Influenza Virus Vacc[facility] Quad IM 3+ YRS Unknown Completed [facility] TDAP Unknown Completed [facility] TDAP Unknown Completed [facility] HPV9 Unknown Completed [facility] Influenza Virus Vacc[facility] Quad IM 3+ YRS Unknown Completed [facility] TDAP Unknown Completed [facility] TDAP Unknown Completed [facility] HPV9 Unknown Completed [facility] Influenza Virus Vacc[facility] Quad IM 3+ YRS Unknown Completed [facility] TDAP Unknown Completed [facility] TDAP Unknown Completed [facility] HPV9 Unknown Completed [facility] Influenza Virus Vacc[facility] Quad IM 3+ YRS Unknown Completed [facility] TDAP Unknown Completed [facility] TDAP Unknown Completed [facility] HPV9 Unknown Completed [facility] Influenza Virus Vacc[facility] Quad IM 3+ YRS Unknown Completed [facility] TDAP Unknown Completed [facility] TDAP Unknown Completed [facility] HPV9 Unknown Completed [facility] Influenza Virus Vacc[facility] Quad IM 3+ YRS Unknown Completed [facility] TDAP Unknown Completed [facility] TDAP Unknown Completed [facility] HPV9 Unknown Completed [facility] Influenza Virus Vacc[facility] Quad IM 3+ YRS Unknown Completed [facility] TDAP Unknown Completed [facility] TDAP Unknown Completed [facility] HPV9 Unknown Completed [facility] Influenza Virus Vacc[facility] Quad IM 3+ YRS Unknown Completed [facility] TDAP Unknown Completed [facility] TDAP Unknown Completed [facility] HPV9 Unknown Completed [facility] Influenza Virus Vacc[facility] Quad IM 3+ YRS Unknown Completed [facility] TDAP Unknown Completed [facility] TDAP Unknown Completed [facility] HPV9 Unknown Completed [facility] Influenza Virus Vacc[facility] Quad IM 3+ YRS Unknown Completed [facility] TDAP Unknown Completed [facility] TDAP Unknown Completed [facility] HPV9 Unknown Completed [facility] Influenza Virus Vacc[facility] Quad IM 3+ YRS Unknown Completed [facility] TDAP Unknown Completed [facility] TDAP Unknown Completed [facility] HPV9 Unknown Completed [facility] Influenza Virus Vaccine Quad IM 3+ YRS Unknown Completed [facility] TDAP Unknown Completed [facility] TDAP Unknown Completed [facility] HPV9 Unknown Completed [facility] Influenza Virus Vaccine Quad IM 3+ YRS Unknown Completed [facility] TDAP Unknown Completed [facility] TDAP Unknown Completed [facility] HPV9 Unknown Completed [facility] Influenza Virus Vaccine Quad IM 3+ YRS Unknown Completed [facility] TDAP Unknown Completed [facility] TDAP Unknown Completed [facility] HPV9 Unknown Completed [facility] Influenza Virus Vaccine Quad IM 3+ YRS Unknown Completed [facility] TDAP Unknown Completed [facility] TDAP Unknown Completed [facility] HPV9 Unknown Completed [facility] Influenza Virus Vaccine Quad IM 3+ YRS Unknown Completed [facility] TDAP Unknown Completed [facility] TDAP Unknown Completed [facility] HPV9 Unknown Completed [facility] Influenza Virus Vacc[facility] Quad IM 3+ YRS Unknown Completed [facility] TDAP Unknown Completed [facility] TDAP Unknown Completed [facility] HPV9 Unknown Completed [facility] Influenza Virus Vaccine Quad IM 3+ YRS Unknown Completed [facility] TDAP Unknown Completed [facility] TDAP Unknown Completed [facility] HPV9 Unknown Completed [facility] Influenza Virus Vaccine Quad IM 3+ YRS Unknown Completed [facility] TDAP Unknown Completed [facility] TDAP Unknown Completed [facility] HPV9 Unknown Completed [facility] Influenza Virus Vacc[facility] Quad IM 3+ YRS Unknown Completed [facility] TDAP Unknown Completed [facility] TDAP Unknown Completed [facility] HPV9 Unknown Completed [facility] Influenza Virus Vacc[facility] Quad IM 3+ YRS Unknown Completed [facility] TDAP Unknown Completed [facility] TDAP Unknown Completed [facility] HPV9 Unknown Completed [facility] Influenza Virus Vacc[facility] Quad IM 3+ YRS Unknown Completed [facility] TDAP Unknown Completed [facility] TDAP Unknown Completed [facility] HPV9 Unknown Completed [facility] Influenza Virus Vacc[facility] Quad IM 3+ YRS Unknown Completed [facility] TDAP Unknown Completed [facility] TDAP Unknown Completed [facility] HPV9 Unknown Completed [facility] Influenza Virus Vacc[facility] Quad IM 3+ YRS Unknown Completed [facility] TDAP Unknown Completed [facility] TDAP Unknown Completed [facility] HPV9 Unknown Completed [facility] Influenza Virus Vacc[facility] Quad IM 3+ YRS Unknown Completed [facility] TDAP Unknown Completed [facility] TDAP Unknown Completed [facility] HPV9 Unknown Completed [facility] Influenza Virus Vacc[facility] Quad IM 3+ YRS Unknown Completed [facility] TDAP Unknown Completed [facility] TDAP Unknown Completed [facility] HPV9 Unknown Completed [facility] Influenza Virus Vacc[facility] Quad IM 3+ YRS Unknown Completed [facility] TDAP Unknown Completed [facility] TDAP Unknown Completed [facility] HPV9 Unknown Completed [facility] Influenza Virus Vacc[facility] Quad IM 3+ YRS Unknown Completed [facility] TDAP Unknown Completed [facility] TDAP Unknown Completed [facility] HPV9 Unknown Completed [facility] Influenza Virus Vacc[facility] Quad IM 3+ YRS Unknown Completed [facility] TDAP Unknown Completed [facility] TDAP Unknown Completed [facility] HPV9 Unknown Completed [facility] Influenza Virus Vacc[facility] Quad IM 3+ YRS Unknown Completed [facility] TDAP Unknown Completed [facility] TDAP Unknown Completed [facility] HPV9 Unknown Completed [facility] Influenza Virus Vacc[facility] Quad IM 3+ YRS Unknown Completed [facility] TDAP Unknown Completed [facility] TDAP Unknown Completed [facility] HPV9 Unknown Completed [facility] Influenza Virus Vacc[facility] Quad IM 3+ YRS Unknown Completed [facility] TDAP Unknown Completed [facility] TDAP Unknown Completed [facility] HPV9 Unknown Completed [facility] Influenza Virus Vacc[facility] Quad IM 3+ YRS Unknown Completed [facility] TDAP Unknown Completed [facility] TDAP Unknown Completed [facility] HPV9 Unknown Completed [facility] Influenza Virus Vacc[facility] Quad IM 3+ YRS Unknown Completed [facility] TDAP Unknown Completed [facility] TDAP Unknown Completed [facility] HPV9 Unknown Completed [facility] Influenza Virus Vacc[facility] Quad IM 3+ YRS Unknown Completed [facility] TDAP Unknown Completed [facility] TDAP Unknown Completed [facility] HPV9 Unknown Completed [facility] Influenza Virus Vaccine Quad IM 3+ YRS Unknown Completed [facility] TDAP Unknown Completed [facility] TDAP Unknown Completed [facility] HPV9 Unknown Completed [facility] Influenza Virus Vaccine Quad IM 3+ YRS Unknown Completed [facility] TDAP Unknown Completed [facility] TDAP Unknown Completed [facility] HPV9 Unknown Completed [facility] Influenza Virus Vaccine Quad IM 3+ YRS Unknown Completed [facility] TDAP Unknown Completed [facility] TDAP Unknown Completed [facility] HPV9 Unknown Completed [facility] Influenza Virus Vaccine Quad IM 3+ YRS Unknown Completed [facility] TDAP Unknown Completed [facility] TDAP Unknown Completed [facility] HPV9 Unknown Completed [facility] Influenza Virus Vaccine Quad IM 3+ YRS Unknown Completed [facility] TDAP Unknown Completed [facility] TDAP Unknown Completed [facility] HPV9 Unknown Completed [facility] Influenza Virus Vaccine Quad IM 3+ YRS Unknown Completed [facility] TDAP Unknown Completed [facility] TDAP Unknown Completed [facility] HPV9 Unknown Completed [facility] Influenza Virus Vaccine Quad IM 3+ YRS Unknown Completed [facility] TDAP Unknown Completed [facility] TDAP Unknown Completed [facility] HPV9 Unknown Completed [facility] Influenza Virus Vaccine Quad IM 3+ YRS Unknown Completed [facility] TDAP Unknown Completed [facility] TDAP Unknown Completed [facility] HPV9 Unknown Completed [facility] Influenza Virus Vacc[facility] Quad IM 3+ YRS Unknown Completed [facility] TDAP Unknown Completed [facility] TDAP Unknown Completed [facility] HPV9 Unknown Completed [facility] Influenza Virus Vaccine Quad IM 3+ YRS Unknown Completed [facility] TDAP Unknown Completed [facility] TDAP Unknown Completed [facility] HPV9 Unknown Completed [facility] Influenza Virus Vaccine Quad IM 3+ YRS Unknown Completed [facility] TDAP Unknown Completed [facility] TDAP Unknown Completed [facility] HPV9 Unknown Completed [facility] Influenza Virus Vaccine Quad IM 3+ YRS Unknown Completed [facility] TDAP Unknown Completed [facility] TDAP Unknown Completed [facility] HPV9 Unknown Completed [facility] Influenza Virus Vaccine Quad IM 3+ YRS Unknown Completed [facility] TDAP Unknown Completed [facility] TDAP Unknown Completed [facility] HPV9 Unknown Completed [facility] Influenza Virus Vaccine Quad IM 3+ YRS Unknown Completed [facility] TDAP Unknown Completed [facility] TDAP Unknown Completed [facility] HPV9 Unknown Completed [facility] Influenza Virus Vaccine Quad IM 3+ YRS Unknown Completed [facility] TDAP Unknown Completed [facility] TDAP Unknown Completed [facility] HPV9 Unknown Completed [facility] Influenza Virus Vaccine Quad IM 3+ YRS Unknown Completed [facility] TDAP Unknown Completed [facility] TDAP Unknown Completed [facility] HPV9 Unknown Completed [facility] Influenza Virus Vaccine Quad IM 3+ YRS Unknown Completed [facility] TDAP Unknown Completed [facility] TDAP Unknown Completed [facility] HPV9 Unknown Completed [facility] Influenza Virus Vaccine Quad IM 3+ YRS Unknown Completed [facility] TDAP Unknown Completed [facility] TDAP Unknown Completed [facility] HPV9 Unknown Completed [facility] Influenza Virus Vaccine Quad IM 3+ YRS Unknown Completed [facility] TDAP Unknown Completed [facility] TDAP Unknown Completed [facility] HPV9 Unknown Completed [facility] Influenza Virus Vaccine Quad IM 3+ YRS Unknown Completed [facility] TDAP Unknown Completed [facility] TDAP Unknown Completed [facility] HPV9 Unknown Completed [facility] Influenza Virus Vaccine Quad IM 3+ YRS Unknown Completed [facility] TDAP Unknown Completed [facility] TDAP Unknown Completed [facility] HPV9 Unknown Completed [facility] Influenza Virus Vaccine Quad IM 3+ YRS Unknown Completed [facility] TDAP Unknown Completed [facility] TDAP Unknown Completed [facility] HPV9 Unknown Completed [facility] Influenza Virus Vaccine Quad IM 3+ YRS Unknown Completed [facility] TDAP Unknown Completed [facility] TDAP Unknown Completed [facility] HPV9 Unknown Completed [facility] Influenza Virus Vaccine Quad IM 3+ YRS Unknown Completed [facility] TDAP Unknown Completed [facility] TDAP Unknown Completed [facility] HPV9 Unknown Completed [facility] Influenza Virus Vacc[facility] Quad IM 3+ YRS Unknown Completed [facility] TDAP Unknown Completed [facility] TDAP Unknown Completed [facility] HPV9 Unknown Completed [facility] Influenza Virus Vaccine Quad IM 3+ YRS Unknown Completed [facility] TDAP Unknown Completed [facility] TDAP Unknown Completed [facility] HPV9 Unknown Completed [facility] Influenza Virus Vaccine Quad IM 3+ YRS Unknown Completed [facility] TDAP Unknown Completed [facility] TDAP Unknown Completed [facility] HPV9 Unknown Completed [facility] Influenza Virus Vaccine Quad IM 3+ YRS Unknown Completed [facility] TDAP Unknown Completed [facility] TDAP Unknown Completed [facility] HPV9 Unknown Completed [facility] Influenza Virus Vacc[facility] Quad IM 3+ YRS Unknown Completed [facility] TDAP Unknown Completed [facility] TDAP Unknown Completed [facility] HPV9 Unknown Completed [facility] Influenza Virus Vacc[facility] Quad IM 3+ YRS Unknown Completed [facility] TDAP Unknown Completed [facility] TDAP Unknown Completed [facility] HPV9 Unknown Completed [facility] Influenza Virus Vacc[facility] Quad IM 3+ YRS Unknown Completed [facility] TDAP Unknown Completed [facility] TDAP Unknown Completed [facility] HPV9 Unknown Completed [facility] Influenza Virus Vacc[facility] Quad IM 3+ YRS Unknown Completed [facility] TDAP Unknown Completed [facility] TDAP Unknown Completed [facility] HPV9 Unknown Completed [facility] Influenza Virus Vaccine Quad IM 3+ YRS Unknown Completed [facility] TDAP Unknown Completed [facility] TDAP Unknown Completed [facility] HPV9 Unknown Completed [facility] Influenza Virus Vacc[facility] Quad IM 3+ YRS Unknown Completed [facility] TDAP Unknown Completed [facility] TDAP Unknown Completed [facility] HPV9 Unknown Completed [facility] Influenza Virus Vacc[facility] Quad IM 3+ YRS Unknown Completed [facility] TDAP Unknown Completed [facility] TDAP Unknown Completed [facility] HPV9 Unknown Completed [facility] Influenza Virus Vacc[facility] Quad IM 3+ YRS Unknown Completed [facility] TDAP Unknown Completed [facility] TDAP Unknown Completed [facility] HPV9 Unknown Completed [facility] Influenza Virus Vacc[facility] Quad IM 3+ YRS Unknown Completed [facility] TDAP Unknown Completed [facility] TDAP Unknown Completed [facility] HPV9 Unknown Completed [facility] Influenza Virus Vaccine Quad IM 3+ YRS Unknown Completed [facility] TDAP Unknown Completed [facility] TDAP Unknown Completed [facility] HPV9 Unknown Completed [facility] Influenza Virus Vacc[facility] Quad IM 3+ YRS Unknown Completed [facility] TDAP Unknown Completed [facility] TDAP Unknown Completed [facility] HPV9 Unknown Completed [facility] Influenza Virus Vacc[facility] Quad IM 3+ YRS Unknown Completed [facility] TDAP Unknown Completed [facility] TDAP Unknown Completed [facility] HPV9 Unknown Completed [facility] Influenza Virus Vacc[facility] Quad IM 3+ YRS Unknown Completed [facility] TDAP Unknown Completed [facility] TDAP Unknown Completed [facility] HPV9 Unknown Completed [facility] Influenza Virus Vacc[facility] Quad IM 3+ YRS Unknown Completed [facility] TDAP Unknown Completed [facility] TDAP Unknown Completed [facility] HPV9 Unknown Completed [facility] Influenza Virus Vaccine Quad IM 3+ YRS Unknown Completed [facility] TDAP Unknown Completed [facility] TDAP Unknown Completed [facility] HPV9 Unknown Completed [facility] Vital Signs Vital Name Observation Time Observation Value Comments S ource Systolic blood pressure 2023-08-25 19:55:00 105 mm[Hg] [facility] Diastolic blood pressure 2023-08-25 19:55:00 68 mm[Hg] [facility] Heart rate 2023-08-25 19:55:00 80 /min [facility] 2023-08-25 19:55:00 36.33 Sandhya [facility] Body weight 2023-08-25 19:55:00 99.882 kg [facility] BMI 2023-08-25 19:55:00 34.49 kg/m2 [facility] Systolic blood pressure 2023-08-20 19:47:00 131 mm[Hg] [facility] Diastolic blood pressure 2023-08-20 19:47:00 75 mm[Hg] [facility] Heart rate 2023-08-20 19:47:00 68 /min [facility] Body temperature 2023-08-20 19:47:00 36.56 Sandhya [facility] Respiratory rate 2023-08-20 19:47:00 17 /min [facility] Body height 2023-08-20 19:47:00 170.2 cm [facility] Body weight 2023-08-20 19:47:00 96.344 kg [facility] BMI 2023-08-20 19:47:00 33.27 kg/m2 [facility] Systolic blood pressure 2023-08-16 15:00:00 110 mm[Hg] [facility] Diastolic blood pressure 2023-08-16 15:00:00 80 mm[Hg] [facility] Heart rate 2023-08-16 15:00:00 65 /min [facility] Body height 2023-08-16 15:00:00 170.2 cm [facility] Body weight 2023-08-16 15:00:00 97.796 kg [facility] BMI 2023-08-16 15:00:00 33.77 kg/m2 [facility] Oxygen saturation in Arterial blood by Pulse oximetry 2023-08-16 15:00:00 100 /min [facility] Systolic blood pressure 2023-08-13 23:09:23 121 mm[Hg] [facility] Diastolic blood pressure 2023-08-13 23:09:23 76 mm[Hg] [facility] Heart rate 2023-08-13 23:09:23 74 /min [facility] Respiratory rate 2023-08-13 23:09:23 18 /min [facility] Oxygen saturation in Arterial blood by Pulse oximetry 2023-08-13 23:09:23 98 /min [facility] Body temperature 2023-08-13 20:34:00 36.89 Sandhya [facility] Body height 2023-08-13 20:34:00 170.2 cm [facility] Body weight 2023-08-13 20:34:00 96.616 kg [facility] BMI 2023-08-13 20:34:00 33.36 kg/m2 [facility] Systolic blood pressure 2023-07-29 20:07:00 95 mm[Hg] [facility] Diastolic blood pressure 2023-07-29 20:07:00 67 mm[Hg] [facility] Heart rate 2023-07-29 20:07:00 105 /min [facility] Body temperature 2023-07-29 20:07:00 36.28 Sandhya [facility] Body height 2023-07-29 20:07:00 170.2 cm [facility] Body weight 2023-07-29 20:07:00 96.48 kg [facility] BMI 2023-07-29 20:07:00 33.31 kg/m2 [facility] [facility] Systolic blood pressure 2023-07-14 21:36:00 95 mm[Hg] [facility] Diastolic blood pressure 2023-07-14 21:36:00 71 mm[Hg] [facility] Heart rate 2023-07-14 21:36:00 76 /min [facility] Body temperature 2023-07-14 21:36:00 36.33 Sandhya [facility] Respiratory rate 2023-07-14 21:36:00 20 /min [facility] Body height 2023-07-14 21:36:00 170.2 cm [facility] Body weight 2023-07-14 21:36:00 96.163 kg [facility] BMI 2023-07-14 21:36:00 33.20 kg/m2 [facility] Oxygen saturation in Arterial blood by Pulse oximetry 2023-07-14 21:36:00 98 /min [facility] Systolic blood pressure 2023-07-07 21:03:00 101 mm[Hg] [facility] Diastolic blood pressure 2023-07-07 21:03:00 67 mm[Hg] [facility] Heart rate 2023-07-07 21:03:00 76 /min [facility] Body temperature 2023-07-07 21:03:00 36 Sandhya [facility] Body height 2023-07-07 21:03:00 170.2 cm [facility] Body weight 2023-07-07 21:03:00 96.752 kg [facility] BMI 2023-07-07 21:03:00 33.41 kg/m2 [facility] Systolic blood pressure 2023-07-01 21:39:00 116 mm[Hg] [facility] Diastolic blood pressure 2023-07-01 21:39:00 73 mm[Hg] [facility] Heart rate 2023-07-01 21:39:00 64 /min [facility] Body temperature 2023-07-01 21:39:00 36.17 Sandhya [facility] Respiratory rate 2023-07-01 21:39:00 18 /min [facility] Body height 2023-07-01 21:39:00 170.2 cm [facility] Body weight 2023-07-01 21:39:00 95.397 kg [facility] BMI 2023-07-01 21:39:00 32.94 kg/m2 [facility] Systolic blood pressure 2023-06-23 19:21:00 101 mm[Hg] [facility] Diastolic blood pressure 2023-06-23 19:21:00 70 mm[Hg] [facility] Heart rate 2023-06-23 19:21:00 73 /min [facility] Body temperature 2023-06-23 19:21:00 36.17 Sandhya [facility] Body height 2023-06-23 19:21:00 170.2 cm [facility] Body weight 2023-06-23 19:21:00 95.255 kg [facility] BMI 2023-06-23 19:21:00 32.89 kg/m2 [facility] Systolic blood pressure 2023-06-22 14:24:00 120 mm[Hg] [facility] Diastolic blood pressure 2023-06-22 14:24:00 83 mm[Hg] [facility] Heart rate 2023-06-22 14:24:00 67 /min [facility] Respiratory rate 2023-06-22 14:24:00 12 /min [facility] Body height 2023-06-22 14:24:00 170.2 [facility] 2023-06-22 14:24:00 96.344 kg [facility] BMI 2023-06-22 14:24:00 33.27 kg/m2 [facility] Oxygen saturation in Arterial blood by Pulse oximetry 2023-06-22 14:24:00 100 /min [facility] Heart rate 2023-06-22 01:45:00 84 /min [facility] Oxygen saturation in Arterial blood by Pulse oximetry 2023-06-22 01:45:00 98 /min [facility] Systolic blood pressure 2023-06-22 01:00:00 119 mm[Hg] [facility] Diastolic blood pressure 2023-06-22 01:00:00 85 mm[Hg] [facility] Respiratory rate 2023-06-22 01:00:00 16 /min [facility] Body height 2023-06-22 00:11:00 170.2 cm [facility] Body weight 2023-06-22 00:11:00 95.255 kg [facility] BMI 2023-06-22 00:11:00 32.89 kg/m2 [facility] Systolic blood pressure 2023-06-17 02:18:00 120 mm[Hg] [facility] Diastolic blood pressure 2023-06-17 02:18:00 82 mm[Hg] [facility] Heart rate 2023-06-17 02:18:00 90 /min [facility] Body temperature 2023-06-17 02:18:00 37 Sandhya [facility] Respiratory rate 2023-06-17 02:18:00 16 /min [facility] Body height 2023-06-17 02:18:00 170.2 cm [facility] Body weight 2023-06-17 02:18:00 94.938 kg [facility] BMI 2023-06-17 02:18:00 32.78 kg/m2 [facility] Oxygen saturation in Arterial blood by Pulse oximetry 2023-06-17 02:18:00 98 /min [facility] Systolic blood pressure 2023-05-26 20:20:00 121 mm[Hg] [facility] Diastolic blood pressure 2023-05-26 20:20:00 85 mm[Hg] [facility] Heart rate 2023-05-26 20:20:00 71 /min [facility] Body temperature 2023-05-26 20:20:00 36.89 Sandhya [facility] Respiratory rate 2023-05-26 20:20:00 18 /min [facility] Body height 2023-05-26 20:20:00 170.2 cm [facility] Body weight 2023-05-26 20:20:00 96.253 kg [facility] BMI 2023-05-26 20:20:00 33.24 kg/m2 [facility] Oxygen saturation in Arterial blood by Pulse oximetry 2023-05-26 20:20:00 100 /min [facility] Systolic blood pressure 2023-05-10 21:05:00 123 mm[Hg] [facility] Diastolic blood pressure 2023-05-10 21:05:00 80 mm[Hg] [facility] Heart rate 2023-05-10 21:05:00 72 /min [facility] Body temperature 2023-05-10 21:05:00 36.56 Sandhya [facility] Body height 2023-05-10 21:05:00 170.2 cm [facility] Body weight 2023-05-10 21:05:00 95.391 kg [facility] BMI 2023-05-10 21:05:00 32.94 kg/m2 [facility] Systolic blood pressure 2023-05-06 17:28:00 126 mm[Hg] [facility] Diastolic blood pressure 2023-05-06 17:28:00 84 mm[Hg] [facility] Heart rate 2023-05-06 17:28:00 70 /min [facility] Respiratory rate 2023-05-06 17:28:00 20 /min [facility] Body height 2023-05-06 17:28:00 170.2 cm [facility] Body weight 2023-05-06 17:28:00 95.165 kg [facility] BMI 2023-05-06 17:28:00 32.86 kg/m2 [facility] Oxygen saturation in Arterial blood by Pulse oximetry 2023-05-06 17:28:00 97 /min [facility] Systolic blood pressure 2023-05-01 17:29:00 111 mm[Hg] [facility] Diastolic blood pressure 2023-05-01 17:29:00 66 mm[Hg] [facility] Heart rate 2023-05-01 17:29:00 69 /min [facility] Body temperature 2023-05-01 17:29:00 36.67 Sandhya [facility] Respiratory rate 2023-05-01 17:29:00 18 /min [facility] Oxygen saturation in Arterial blood by Pulse oximetry 2023-05-01 17:29:00 99 /min [facility] Body height 2023-04-26 11:43:00 170.2 cm [facility] Body weight 2023-04-26 11:43:00 93.6 kg [facility] BMI 2023-04-26 11:43:00 32.32 kg/m2 [facility] Systolic blood pressure 2023-04-23 21:50:00 112 mm[Hg] [facility] Diastolic blood pressure 2023-04-23 21:50:00 76 mm[Hg] [facility] Heart rate 2023-04-23 21:50:00 71 /min [facility] Respiratory rate 2023-04-23 21:50:00 16 /min [facility] Body height 2023-04-23 21:50:00 170.2 cm [facility] Body weight 2023-04-23 21:50:00 91.627 kg [facility] BMI 2023-04-23 21:50:00 31.64 kg/m2 [facility] Oxygen saturation in Arterial blood by Pulse oximetry 2023-04-23 21:50:00 99 /min [facility] Systolic blood pressure 2023-04-09 13:51:00 116 mm[Hg] [facility] Diastolic blood pressure 2023-04-09 13:51:00 79 mm[Hg] [facility] Heart rate 2023-04-09 13:51:00 81 /min [facility] Body temperature 2023-04-09 13:51:00 36.5 Sandhya [facility] Respiratory rate 2023-04-09 13:51:00 18 /min [facility] Body height 2023-04-09 13:51:00 170.2 cm [facility] Body weight 2023-04-09 13:51:00 91.082 kg [facility] BMI 2023-04-09 13:51:00 31.45 kg/m2 [facility] Oxygen saturation in Arterial blood by Pulse oximetry 2023-04-09 13:51:00 97 /min [facility] Systolic blood pressure 2023-04-09 13:51:00 116 mm[Hg] [facility] Diastolic blood pressure 2023-04-09 13:51:00 79 mm[Hg] [facility] Heart rate 2023-04-09 13:51:00 81 /min [facility] Body temperature 2023-04-09 13:51:00 36.5 Sandhya [facility] Respiratory rate 2023-04-09 13:51:00 18 /min [facility] Body height 2023-04-09 13:51:00 170.2 cm [facility] 2023-04-09 13:51:00 91.082 kg [facility] BMI 2023-04-09 13:51:00 31.45 kg/m2 [facility] Oxygen saturation in Arterial blood by Pulse oximetry 2023-04-09 13:51:00 97 /min [facility] Systolic blood pressure 2023-04-07 18:48:00 111 mm[Hg] [facility] Diastolic blood pressure 2023-04-07 18:48:00 74 mm[Hg] [facility] Heart rate 2023-04-07 18:48:00 87 /min [facility] Body temperature 2023-04-07 18:48:00 36.67 Sandhya [facility] Respiratory rate 2023-04-07 18:48:00 18 /min [facility] Body height 2023-04-07 18:48:00 170.2 cm [facility] Body weight 2023-04-07 18:48:00 89.812 kg [facility] BMI 2023-04-07 18:48:00 31.01 kg/m2 [facility] Oxygen saturation in Arterial blood by Pulse oximetry 2023-04-07 18:48:00 100 /min [facility] Systolic blood pressure 2023-04-05 18:56:00 124 mm[Hg] [facility] Diastolic blood pressure 2023-04-05 18:56:00 79 mm[Hg] [facility] Heart rate 2023-04-05 18:56:00 81 /min [facility] temperature 2023-04-05 18:56:00 35.83 Sandhya [facility] Respiratory rate 2023-04-05 18:56:00 20 /min [facility] Body height 2023-04-05 18:56:00 170.2 cm [facility] weight 2023-04-05 18:56:00 90.855 kg [facility] BMI 2023-04-05 18:56:00 31.37 kg/m2 [facility] Systolic blood pressure 2023-01-26 04:00:00 119 mm[Hg] [facility] Diastolic blood pressure 2023-01-26 04:00:00 74 mm[Hg] [facility] Heart rate 2023-01-26 04:00:00 75 /min [facility] Respiratory rate 2023-01-26 04:00:00 12 /min [facility] Oxygen saturation in Arterial blood by Pulse oximetry 2023-01-26 04:00:00 99 /min [facility] Body temperature 2023-01-26 01:59:00 37.28 Sandhya [facility] Body height 2023-01-26 01:59:00 170.2 cm [facility] Body weight 2023-01-26 01:59:00 90.719 kg [facility] BMI 2023-01-26 01:59:00 31.32 kg/m2 [facility] Systolic blood pressure 2023-01-18 19:36:00 122 mm[Hg] [facility] Diastolic blood pressure 2023-01-18 19:36:00 83 mm[Hg] [facility] Heart rate 2023-01-18 19:36:00 75 /min [facility] Body temperature 2023-01-18 19:36:00 36.83 Sandhya [facility] Respiratory rate 2023-01-18 19:36:00 16 /min [facility] Body height 2023-01-18 19:36:00 170.2 cm [facility] Body weight 2023-01-18 19:36:00 91.581 kg [facility] BMI 2023-01-18 19:36:00 31.62 kg/m2 [facility] Oxygen saturation in Arterial blood by Pulse oximetry 2023-01-18 19:36:00 99 /min [facility] Systolic blood pressure 2023-01-18 15:43:00 113 mm[Hg] [facility] Diastolic blood pressure 2023-01-18 15:43:00 73 mm[Hg] [facility] Heart rate 2023-01-18 15:43:00 75 /min [facility] Body temperature 2023-01-18 15:43:00 35.67 Sandhya [facility] Respiratory rate 2023-01-18 15:43:00 17 /min [facility] Body height 2023-01-18 15:43:00 170.2 cm [facility] Body weight 2023-01-18 15:43:00 90.538 kg [facility] BMI 2023-01-18 15:43:00 31.26 kg/m2 [facility] Systolic blood pressure 2023-01-09 18:15:00 86 mm[Hg] [facility] Diastolic blood pressure 2023-01-09 18:15:00 50 mm[Hg] [facility] Heart rate 2023-01-09 18:15:00 77 /min [facility] Body temperature 2023-01-09 18:15:00 36.83 Sandhya [facility] Respiratory rate 2023-01-09 18:15:00 18 /min [facility] Oxygen saturation in Arterial blood by Pulse oximetry 2023-01-09 18:15:00 99 /min [facility] Body height 2023-01-09 05:47:00 170.2 cm [facility] Body weight 2023-01-09 05:47:00 90.719 kg [facility] BMI 2023-01-09 05:47:00 31.32 kg/m2 [facility] Systolic blood pressure 2023-01-08 22:52:00 112 mm[Hg] [facility] Diastolic blood pressure 2023-01-08 22:52:00 65 mm[Hg] [facility] Heart rate 2023-01-08 22:52:00 107 /min [facility] Body temperature 2023-01-08 22:52:00 36.72 Sandhya [facility] Respiratory rate 2023-01-08 22:52:00 18 /min [facility] Oxygen saturation in Arterial blood by Pulse oximetry 2023-01-08 22:52:00 100 /min [facility] Body height 2023-01-08 15:28:00 170.2 cm [facility] Body weight 2023-01-08 15:28:00 90.719 kg [facility] BMI 2023-01-08 15:28:00 31.32 kg/m2 [facility] Systolic blood pressure 2023-01-04 14:17:00 110 mm[Hg] [facility] Diastolic blood pressure 2023-01-04 14:17:00 71 mm[Hg] [facility] Heart rate 2023-01-04 14:17:00 73 /min [facility] Body temperature 2023-01-04 14:17:00 36.39 Sandhya [facility] Respiratory rate 2023-01-04 14:17:00 20 /min [facility] Body height 2023-01-04 14:17:00 170.2 cm [facility] Body weight 2023-01-04 14:17:00 90.81 kg [facility] BMI 2023-01-04 14:17:00 31.36 kg/m2 [facility] Systolic blood pressure 2023-01-02 05:49:00 112 mm[Hg] [facility] Diastolic blood pressure 2023-01-02 05:49:00 72 mm[Hg] [facility] Heart rate 2023-01-02 05:49:00 77 /min [facility] Respiratory rate 2023-01-02 05:49:00 16 /min [facility] Oxygen saturation in Arterial blood by Pulse oximetry 2023-01-02 05:49:00 100 /min [facility] Body temperature 2023-01-02 05:34:00 36.61 Sandhya [facility] Body height 2023-01-02 03:54:00 162.6 cm [facility] Body weight 2023-01-02 03:54:00 89.812 kg [facility] BMI 2023-01-02 03:54:00 33.99 kg/m2 [facility] Systolic blood pressure 2022-12-21 15:58:00 110 mm[Hg] [facility] Diastolic blood pressure 2022-12-21 15:58:00 68 mm[Hg] [facility] Heart rate 2022-12-21 15:58:00 75 /min [facility] Body temperature 2022-12-21 15:58:00 36.39 Sandhya [facility] Respiratory rate 2022-12-21 15:58:00 18 /min [facility] Body height 2022-12-21 15:58:00 170.2 cm [facility] Body weight 2022-12-21 15:58:00 89.54 kg [facility] BMI 2022-12-21 15:58:00 30.92 kg/m2 [facility] Oxygen saturation in Arterial blood by Pulse oximetry 2022-12-21 15:58:00 100 /min [facility] Systolic blood pressure 2022-12-11 15:46:00 107 mm[Hg] [facility] Diastolic blood pressure 2022-12-11 15:46:00 64 mm[Hg] [facility] Heart rate 2022-12-11 15:46:00 74 /min [facility] Body temperature 2022-12-11 15:46:00 35.89 Sandhya [facility] Respiratory rate 2022-12-11 15:46:00 18 /min [facility] Body height 2022-12-11 15:46:00 170.2 cm [facility] Body weight 2022-12-11 15:46:00 88.225 kg [facility] BMI 2022-12-11 15:46:00 30.46 kg/m2 [facility] Systolic blood pressure 2022-12-09 16:23:00 119 mm[Hg] [facility] Diastolic blood pressure 2022-12-09 16:23:00 70 mm[Hg] [facility] Heart rate 2022-12-09 16:23:00 65 /min [facility] Body temperature 2022-12-09 16:23:00 36.83 Sandhya [facility] Respiratory rate 2022-12-09 16:23:00 18 /min [facility] Body height 2022-12-09 16:23:00 170.2 cm [facility] weight 2022-12-09 16:23:00 89.982 kg [facility] BMI 2022-12-09 16:23:00 31.07 kg/m2 [facility] Systolic blood pressure 2022-11-12 20:14:00 128 mm[Hg] [facility] Diastolic blood pressure 2022-11-12 20:14:00 75 mm[Hg] [facility] Heart rate 2022-11-12 20:14:00 67 /min [facility] Body temperature 2022-11-12 20:14:00 36.67 Sandhya [facility] Respiratory rate 2022-11-12 20:14:00 20 /min [facility] Body height 2022-11-12 20:14:00 170.2 cm [facility] Body weight 2022-11-12 20:14:00 88.962 kg [facility] BMI 2022-11-12 20:14:00 30.72 kg/m2 [facility] Systolic blood pressure 2022-10-22 20:14:00 112 mm[Hg] [facility] Diastolic blood pressure 2022-10-22 20:14:00 74 mm[Hg] [facility] Heart rate 2022-10-22 20:14:00 72 /min [facility] Body temperature 2022-10-22 20:14:00 36.67 Sandhya [facility] Respiratory rate 2022-10-22 20:14:00 18 /min [facility] Body weight 2022-10-22 20:14:00 88.451 kg [facility] BMI 2022-10-22 20:14:00 30.54 kg/m2 [facility] Systolic blood pressure 2022-09-28 13:01:00 104 mm[Hg] [facility] Diastolic blood pressure 2022-09-28 13:01:00 63 mm[Hg] [facility] Heart rate 2022-09-28 13:01:00 75 /min [facility] Body temperature 2022-09-28 13:01:00 36.72 Sandhya [facility] Respiratory rate 2022-09-28 13:01:00 18 /min [facility] Oxygen saturation in Arterial blood by Pulse oximetry 2022-09-28 13:01:00 100 /min [facility] Body weight 2022-09-26 22:36:00 88.451 kg [facility] BMI 2022-09-26 22:36:00 30.54 kg/m2 [facility] Respiratory rate 2022-09-28 02:10:00 10 /min [facility] Oxygen saturation in Arterial blood by Pulse oximetry 2022-09-28 02:10:00 100 /min [facility] Systolic blood pressure 2022-09-28 02:08:00 116 mm[Hg] [facility] Diastolic blood pressure 2022-09-28 02:08:00 76 mm[Hg] [facility] Body temperature 2022-09-28 01:42:00 36.67 Sandhya [facility] Heart rate 2022-09-28 00:40:00 72 /min [facility] Body weight 2022-09-26 22:36:00 88.451 kg [facility] BMI 2022-09-26 22:36:00 30.54 kg/m2 [facility] Systolic blood pressure 2022-09-24 05:00:00 118 mm[Hg] [facility] Diastolic blood pressure 2022-09-24 05:00:00 87 mm[Hg] [facility] Heart rate 2022-09-24 05:00:00 78 /min [facility] Respiratory rate 2022-09-24 05:00:00 20 /min [facility] Oxygen saturation in Arterial blood by Pulse oximetry 2022-09-24 05:00:00 100 /min [facility] Body temperature 2022-09-24 03:13:00 37.78 Sandhya [facility] Body height 2022-09-24 03:13:00 170.2 cm [facility] Body weight 2022-09-24 03:13:00 88.86 kg [facility] BMI 2022-09-24 03:13:00 30.68 [facility] pressure 2022-09-23 21:15:00 114 mm[Hg] [facility] Diastolic blood pressure 2022-09-23 21:15:00 74 mm[Hg] [place] [facility] Heart rate 2022-09-23 21:15:00 76 /min [facility] Body temperature 2022-09-23 21:15:00 36.56 Sandhya [facility] Respiratory rate 2022-09-23 21:15:00 18 /min [facility] Body height 2022-09-23 21:15:00 170.2 cm [facility] Body weight 2022-09-23 21:15:00 89.495 kg [facility] BMI 2022-09-23 21:15:00 30.90 kg/m2 [facility] Systolic blood pressure 2022-08-11 21:40:00 125 mm[Hg] [place] [facility] Diastolic blood pressure 2022-08-11 21:40:00 76 mm[Hg] [facility] Heart rate 2022-08-11 21:40:00 71 /min [facility] Body temperature 2022-08-11 21:40:00 36.44 Sandhya [facility] Respiratory rate 2022-08-11 21:40:00 17 /min [facility] Body height 2022-08-11 21:40:00 170.2 cm [facility] Body weight 2022-08-11 21:40:00 86.864 kg [facility] BMI 2022-08-11 21:40:00 29.99 kg/m2 [facility] Respiratory rate 2022-04-27 08:02:00 18 /min [facility] Body height 2022-04-27 08:02:00 170.2 cm [facility] Body weight 2022-04-27 08:02:00 91.173 kg [facility] BMI 2022-04-27 08:02:00 31.48 kg/m2 [facility] Oxygen saturation in Arterial blood by Pulse oximetry 2022-04-27 08:02:00 99 /min [facility] Systolic blood pressure 2022-04-27 08:02:00 121 mm[Hg] [facility] Diastolic blood pressure 2022-04-27 08:02:00 82 mm[Hg] [facility] Heart rate 2022-04-27 08:02:00 85 /min [facility] Body temperature 2022-04-27 08:02:00 37.06 Sandhya [facility] Systolic blood pressure 2022-04-18 16:19:00 103 mm[Hg] [facility] Diastolic blood pressure 2022-04-18 16:19:00 69 mm[Hg] [facility] Heart rate 2022-04-18 16:19:00 84 /min [facility] Body temperature 2022-04-18 16:19:00 36.5 Sandhya [facility] Respiratory rate 2022-04-18 16:19:00 20 /min [facility] Body height 2022-04-18 16:19:00 170.2 cm [facility] Body weight 2022-04-18 16:19:00 91.491 kg [facility] BMI 2022-04-18 16:19:00 31.59 kg/m2 [facility] Systolic blood pressure 2022-04-02 18:22:00 122 mm[Hg] [facility] Diastolic blood pressure 2022-04-02 18:22:00 73 mm[Hg] [facility] Heart rate 2022-04-02 18:22:00 74 /min [facility] Body temperature 2022-04-02 18:22:00 36 Sandhya [facility] Respiratory rate 2022-04-02 18:22:00 18 /min [facility] Body height 2022-04-02 18:22:00 170.2 cm [facility] [facility] Body weight 2022-04-02 18:22:00 92.59 kg [facility] BMI 2022-04-02 18:22:00 31.97 kg/m2 [facility] Procedures Procedure Date / Time Performed Performing Clinician Source POCT TEST 2023-08-20 19:56:00 Pete Owens [facility] ASSIGNMENT OF BENEFITS 2023-08-13 22:13:19 Doctor Unassigned, Reeder [facility] COMP. METABOLIC PANEL (69962) 2023-08-13 21:08:00 Bogdan Gabriel [facility] TOTAL BETA HCG ASSAY 2023-08-13 21:08:00 Fely [facility] CBC WITH DIFF 2023-08-13 21:08:00 Fely [facility] URINALYSIS 2023-08-13 21:08:00 [facility] HB ABO GROUPING 2023-08-13 21:08:00 Fely [facility] CONSENT/REFUSAL FOR DIAGNOSI S AND TREATMENT 2023-08-13 20:17:50 Doctor Unassigned, Reeder [facility] C-REACTIVE PROTEIN 2023-07-29 20:37:00 Mariama Carrera [facility] COMP. METABOLIC PANEL ([id number]) 2023-07-29 20:37:00 Mariama Carrera [facility] SEDIMENTATION RATE 2023-07-29 20:37:00 Mariama Carrera [facility] CBC WITH DIFF 2023-07-29 20:37:00 Mariama Carrera [facility] URINALYSIS 2023-07-29 20:37:00 Mariama Carrera [facility] EXTERNAL PROVIDER RECORDS 2023-07-23 06:01:00 Doctor Unassigned, Reeder [facility] URINE CULTURE 2023-07-01 21:55:00 Tawana Jean [facility] GALV ONLY - VAGINAL PATHOGEN S BY NUCLEIC ACID TESTING 2023-07-01 21:55:00 Tawana Jean [facility] POCT URINALYSIS 2023-07-01 21:39:00 Pete Owens [facility] CONSENT/REFUSAL FOR DIAGNOSI S AND TREATMENT 2023-06-22 00:07:05 Doctor Unassigned, Reeder [facility] SLEEP STUDY DATA REPORT 2023-06-03 06:01:00 Doctor Unassigned, Reeder [facility] US PELVIS COMPLETE WITH TRANSVAGINAL 2023-05-18 20:38:21 Abby Jordan [facility] MAGNESIUM 2023-05-01 10:09:00 Kathy sEquivel [facility] BASIC METABOLIC PANEL (NA, K , CL, CO2, GLUCOSE, BUN, CREATININE, CA) 2023-05-01 10:09:00 Kathy Esquivel [facility] CBC WITHOUT DIFF 2023-05-01 10:09:00 Kahty Esquivel [facility] MAGNESIUM 2023-04-30 11:12:00 Kathy Esquivel [facility] HEPATIC FUNCTION PANEL (51872) (ALB,T.PRO,BILI T,BU/BC,ALT,AST,ALK PHOS) 2023-04-30 11:12:00 Kathy Esquivel [facility] BASIC METABOLIC PANEL (NA, K , CL, CO2, GLUCOSE, BUN, CREATININE, CA) 2023-04-30 11:12:00 Kathy Esquivel [facility] CBC WITHOUT DIFF 2023-04-30 11:12:00 Kathy Esquivel [facility] PROTHROMBIN TIME / INR 2023-04-30 11:12:00 Kathy Esquivel [facility] MR VENOGRAM HEAD W WO CONTRAST 2023-04-30 03:22:57 Marta [facility] MR BRAIN W WO CONTRAST 2023-04-30 03:21:29 Ivonne Lozano [facility] RESPIRATORY PANEL BY PCR 2023-04-28 00:16:00 Devonte Veronica [facility] COVID-19 (ID NOW RAPID TESTING) 2023-04-27 22:03:00 Devonte Veronica [facility] LAB ONLY COVID INTERPRETATION 2023-04-27 22:03:00 Tanja Hanson [facility] BASIC METABOLIC PANEL (NA, K , CL, CO2, GLUCOSE, BUN, CREATININE, CA) 2023-04-27 15:27:00 Ivonne Lozano [facility] CBC WITH DIFF 2023-04-27 15:27:00 Ivonne Lozano [facility] ELECTROENCEPHALOGRAM 2023-04-27 00:00:00 Ivonne Lozano [facility] CREATINE KINASE 2023-04-26 22:35:00 Tanja Hanson [facility] CT HEAD WO CONTRAST 2023-04-26 22:24:07 Tanja Hanson [facility] SURGICAL PATHOLOGY EXAM 2023-04-26 14:16:00 Bandar Baca [facility] HYSTEROSCOPY WITH DILATATION AND CURETTAGE 2023-04-26 13:06:00 Bandar Baca [facility] CBC WITH DIFF 2023-04-26 11:59:00 Tono Taylor [facility] HB ABO GROUPING 2023-04-26 11:59:00 Claudio Goldsmith [facility] POCT TEST 2023-04-26 11:40:00 Loreto Oconnell [facility] CONSENT/REFUSAL FOR DIAGNOSI S AND TREATMENT 2023-04-26 11:37:09 Doctor Unassigned, Reeder [facility] ASSIGNMENT OF BENEFITS 2023-04-26 11:34:48 Doctor Unassigned, Reeder [facility] URINALYSIS 2023-04-09 16:16:00 UmañaJarrett Pearsonrique [facility] CREATINE KINASE 2023-04-09 15:50:00 UmañaMichel [facility] C-REACTIVE PROTEIN 2023-04-09 15:50:00 UmañaMichel [facility] C4 COMPLEMENT 2023-04-09 15:50:00 UmañaMichel [facility] IRON PANEL 2023-04-09 15:50:00 UmañaJarrett Sheffieldrique [facility] G6PD SCREENING TEST 2023-04-09 15:50:00 [facility] 2023-04-09 15:50:00 [facility] QUANTIFERON-TB ASSAY 2023-04-09 15:50:00 [facility] THIOPURINE METHYLTRANSFERASE , RBC 2023-04-09 15:50:00 [facility] ANTI-SSA(RO) 2023-04-09 15:50:00 [facility] ANTI-DOUBLE STRANDED DNA 2023-04-09 15:50:00 [facility] QFT TB2 MINUS NIL 2023-04-09 15:50:00 [facility] LUPUS ANTICOAGULANT REFLEXIV E PANEL 2023-04-09 15:50:00 [facility] FERRITIN SERUM 2023-04-07 19:38:00 [facility] RHEUMATOID FACTOR 2023-04-07 19:38:00 Thais Marin [facility] COMP. METABOLIC PANEL ([id number]) 2023-04-07 19:38:00 Thais Marin [facility] SEDIMENTATION RATE 2023-04-07 19:38:00 Thais Marin [facility] CBC WITH DIFF 2023-04-07 19:38:00 Thais Marin [facility] ANTI-NUCLEAR ANTIBODY SCREEN 2023-04-07 19:38:00 Thais Marin [facility] HEPATITIS B SURFACE ANTIGEN 2023-04-07 19:38:00 Thais Marin [facility] HCV ANTIBODY 2023-04-07 19:38:00 Thais Marin [facility] GC & CHLAMYDIA AMPLIFIED ASSAY 2023-04-07 19:38:00 Thais Marin [facility] HSV 1 AND 2 GLYCOPROTEIN G IGG 2023-04-07 19:38:00 Thais Marin [facility] ADC OR ZACHARY ONLY - RPR 2023-04-07 19:38:00 Thais Marin [facility] HIV 1/2 AG-AB WITH REFLEX 2023-04-07 19:38:00 Thais Marin [facility] TRICHOMONAS AMPLIFIED ASSAY 2023-04-07 19:38:00 Thais Marin [facility] FERRITIN SERUM 2023-04-07 19:38:00 Jose Craig [facility] EKG-12 LEAD 2023-01-26 04:19:59 Gaurav John [facility] CT ABDOMEN PELVIS WO CONTRAST 2023-01-26 03:13:00 Gaurav John [facility] LIPASE 2023-01-26 02:21:00 Gaurav John [facility] COMP. METABOLIC PANEL ([id number]) 2023-01-26 02:21:00 Gaurav John [facility] CBC WITH DIFF 2023-01-26 02:21:00 Gaurav John [facility] URINALYSIS 2023-01-26 02:05:00 Gaurav John [facility] POCT TEST 2023-01-26 02:03:00 Gaurav John [facility] NOTICE OF PRIVACY PRACTICES 2023-01-26 01:50:27 Doctor Unassigned, Reeder [facility] CONSENT/REFUSAL FOR DIAGNOSI S AND TREATMENT 2023-01-26 01:49:25 Doctor Unassigned, Reeder [facility] ASSIGNMENT OF BENEFITS 2023-01-18 21:28:15 Doctor Unassigned, Reeder [facility] CONSENT/REFUSAL FOR DIAGNOSI S AND TREATMENT 2023-01-18 19:32:06 Doctor Unassigned, Reeder [facility] POCT TEST 2023-01-18 17:54:00 Bandar Baca [facility] CBC WITH DIFF 2023-01-09 08:24:00 Adum, Mariajose Gudino [facility] CBC WITH DIFF 2023-01-09 08:24:00 Adum, Mariajose Gudino [facility] CBC WITHOUT DIFF 2023-01-09 04:08:00 Adum, Mariajose Gudino [facility] CBC WITHOUT DIFF 2023-01-09 04:08:00 Adum, Mariajose Shahab [facility] US PELVIS LIMITED 2023-01-09 01:57:00 Adum, Mariajose Gudino [facility] US PELVIS LIMITED 2023-01-09 01:57:00 Adum, Mariajose Shahab [facility] DILATION AND CURETTAGE 2023-01-09 00:05:00 Adum, Mariajose Shahab [facility] HYSTEROSCOPY 2023-01-09 00:05:00 Adum, Mariajose Shahab [facility] DIAGNOSTIC LAPAROSCOPY 2023-01-09 00:05:00 Adum, Mariajose Gudino [facility] LAPAROSCOPIC LYSIS OF ADHESIONS 2023-01-09 00:05:00 Adum, Mariajose Gudino [facility] LAPAROSCOPIC OVARIAN CYST ASPIRATION 2023-01-09 00:05:00 Adum, Mariajose Gudino [facility] URINALYSIS 2023-01-08 16:47:00 Basilio [facility] URINALYSIS 2023-01-08 16:47:00 Basilio [facility] LIPASE 2023-01-08 16:01:00 Basilio [facility] COMP. METABOLIC PANEL ([id number]) 2023-01-08 16:01:00 Basilio [facility] TOTAL BETA HCG ASSAY 2023-01-08 16:01:00 Adum, Mariajose Gudino [facility] CBC WITH DIFF 2023-01-08 16:01:00 [facility] HB ABO GROUPING 2023-01-08 16:01:00 Basiilo [facility] LIPASE 2023-01-08 16:01:00 Basilio [facility] COMP. METABOLIC PANEL ([id number]) 2023-01-08 16:01:00 Basilio [facility] TOTAL BETA HCG ASSAY 2023-01-08 16:01:00 Adum, Mariajose Gudino [facility] CBC WITH DIFF 2023-01-08 16:01:00 Ebrahim, Rania [facility] HB ABO GROUPING 2023-01-08 16:01:00 Clary Richmond [facility] CONSENT/REFUSAL FOR DIAGNOSI S AND TREATMENT 2023-01-08 15:23:42 Doctor Unassigned, Reeder [facility] CONSENT/REFUSAL FOR DIAGNOSI S AND TREATMENT 2023-01-08 15:23:42 Doctor Unassigned, Reeder [facility] DAY SURGERY - ADC 2023-01-08 05:01:00 Doctor Unassigned, Reeder [facility] COMP. METABOLIC PANEL ([id number]) 2023-01-02 04:08:00 Gaurav John [facility] CBC WITH DIFF 2023-01-02 04:08:00 Gaurav John [facility] URINALYSIS 2023-01-02 04:08:00 Gaurav John [facility] HB ABO GROUPING 2023-01-02 04:08:00 Gaurav John [facility] NOTICE OF PRIVACY PRACTICES 2023-01-02 03:45:21 Doctor Unassigned, Reeder [facility] CONSENT/REFUSAL FOR DIAGNOSI S AND TREATMENT 2023-01-02 03:41:52 Doctor Unassigned, Reeder [facility] TOTAL BETA HCG ASSAY 2023-01-01 22:12:00 Wilbur Wilson [facility] POCT URINALYSIS 2022-12-21 16:05:00 Pete Owens [facility] AUTHORIZATION TO RELEASE PHI TO [facility] 2022-12-21 05:01:00 Doctor Unassigned, Reeder [facility] POCT URINALYSIS W/O SPECIFIC GRAVITY 2022-12-11 15:38:00 Pete Owens [facility] POCT TEST 2022-12-11 15:37:00 Pete Owens [facility] POCT TEST 2022-12-09 17:56:00 Tawana Jean [facility] POCT URINALYSIS W/O SPECIFIC GRAVITY 2022-12-09 16:24:00 Tawana Jean [facility] REPORT OF 2022-12-09 05:01:00 Doctor Unassigned, Reeder [facility] POCT TEST 2022-10-22 20:16:00 Tawana Jean [facility] PATIENT FINANCIAL POLICY 2022-10-22 20:09:06 Doctor Unassigned, Reeder [facility] XR ANKLE <3 VW LEFT 2022-09-28 16:20:43 Dara Renosol [facility] XR ANKLE <3 VW LEFT 2022-09-28 16:20:43 Dara Reonsol [facility] DILATION AND CURETTAGE 2022-09-28 00:56:00 Rowdy Gillian [facility] DILATION AND CURETTAGE 2022-09-28 00:56:00 Dara Renosol [facility] FIRST TRIMESTER LESS THAN 14 WEEKS WITH TRANSVAGINAL 2022-09-27 02:21:11 Winifred James [facility] FIRST TRIMESTER LESS THAN 14 WEEKS WITH TRANSVAGINAL 2022-09-27 02:21:11 Winifred James [facility] COMP. METABOLIC PANEL ([id number]) 2022-09-26 23:14:00 Winifred James [facility] TOTAL BETA HCG ASSAY 2022-09-26 23:14:00 Winifred James [facility] CBC WITH DIFF 2022-09-26 23:14:00 Winifred James [facility] PROTHROMBIN TIME / INR 2022-09-26 23:14:00 Winifred James [facility] COMP. METABOLIC PANEL ([id number]) 2022-09-26 23:14:00 Winifred James [facility] TOTAL BETA HCG ASSAY 2022-09-26 23:14:00 Winifred James [facility] CBC WITH DIFF 2022-09-26 23:14:00 Winifred James [facility] PROTHROMBIN TIME / INR 2022-09-26 23:14:00 Winifred James [facility] CONSENT/REFUSAL FOR DIAGNOSI S AND TREATMENT 2022-09-26 22:23:31 Doctor Unassigned, Reeder [facility] CONSENT/REFUSAL FOR DIAGNOSI S AND TREATMENT 2022-09-26 22:23:31 Doctor Unassigned, Reeder [facility] FIRST TRIMESTER LESS THAN 14 WEEKS WITH TRANSVAGINAL 2022-09-24 06:22:21 Ariana Castro [facility] POCT TEST 2022-09-24 04:43:00 Paige Melissa [facility] BASIC METABOLIC PANEL (NA, K , CL, CO2, GLUCOSE, BUN, CREATININE, CA) 2022-09-24 04:20:00 Ariana Castro [facility] TOTAL BETA HCG ASSAY 2022-09-24 04:20:00 Ariana Castro [facility] CBC WITH DIFF 2022-09-24 04:20:00 Ariana Castro [facility] ASSIGNMENT OF BENEFITS 2022-09-24 03:31:15 Doctor Unassigned, Reeder [facility] CONSENT/REFUSAL FOR DIAGNOSI S AND TREATMENT 2022-09-24 03:08:55 Doctor Unassigned, Reeder [facility] POCT URINALYSIS 2022-09-23 21:19:00 Tawana Jean [facility] POCT TEST 2022-08-11 21:40:00 Tawana Jean [facility] REPORT OF 2022-08-11 06:01:00 Doctor Unassigned, Reeder [facility] POCT URINALYSIS W/O SPECIFIC GRAVITY 2022-08-11 00:00:00 Tawana Jean [facility] CBC WITH DIFF 2022-04-27 08:22:00 Paige Melissa [facility] POCT TEST 2022-04-27 08:22:00 Paige Melissa [facility] NOTICE OF PRIVACY PRACTICES 2022-04-27 07:55:47 Doctor Unassigned, Reeder [facility] CONSENT/REFUSAL FOR DIAGNOSI S AND TREATMENT 2022-04-27 07:54:13 Doctor Unassigned, Reeder [facility] EXTERNAL PROVIDER RECORDS 2022-04-03 05:01:00 Doctor Unassigned, Reeder [facility] POCT TEST 2022-04-02 19:31:00 Louise Prado [facility] THYROID STIMULATING HORMONE 2022-04-02 19:05:00 Louise Prado [facility] Encounters Start Date/Time End Date/Time Encounter Type Admission Type Attending [facility] Care Facility Care Department Encounter ID Source 2023-01-04 10:43:39 Outpatient BANDAR ELLIS [facility] 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 [id number] [facility] 2021-04-22 01:27:59 Emergency [facility] [id number] [facility] 2021-04-21 19:32:10 Emergency [facility] [id number] [facility] 2021-04-18 21:43:36 Emergency [facility] [id number] [facility] 2023-09-15 15:10:00 2023-09-15 15:10:00 Outpatient KVNG SCHILLING [facility] [id number] [facility] 2023-09-09 10:15:00 2023-09-09 10:15:00 Outpatient BOB VIRGEN CRAIG [facility] [id number] [facility] 2023-08-26 00:00:00 2023-08-26 00:00:00 Case Management Laurie Montejo [facility] [id number] 350.1.13.10 4.2.7.2.686 [id number] [facility] 2023-08-25 13:58:00 2023-08-25 23:59:00 Outpatient BRONWYN KWONG [facility] [id number] [facility] 2023-08-25 13:58:00 2023-08-25 23:59:00 Hospital Encounter Bronwyn Wellington [facility] .840.114 350.1.13.10 4.2.7.2.686 [id number] [facility] 2023-08-25 13:40:00 2023-08-25 14:51:03 Office Visit Bronwyn Wellington [facility] 1.840.114 350.1.13.10 4.2.7.2.686 [id number] [facility] 2023-08-20 13:00:00 2023-08-20 14:03:14 Outpatient R PETE OWENS [facility] [id number] [facility] 2023-08-20 13:00:00 2023-08-20 14:03:14 Nurse Visit Visit, RadhaRmchp Pete Regalado [facility] 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 N[facility] 1..840.114 350.1.13.10 4.2.7.2.686 [id number] [facility] 2023-08-16 09:00:00 2023-08-16 09:30:00 Office Visit Ira Smith [facility] BUILD[facility] 1..840.114 350.1.13.10 4.2.7.2.686 [id number] [facility] 2023-08-16 09:00:00 2023-08-16 09:00:00 Outpatient R SARAH [facility] [id number] [facility] 2023-08-13 14:35:00 2023-08-13 17:12:00 Emergency X BOGDAN GABRIEL [facility] ERT [id number] [facility] 2023-08-13 14:35:00 2023-08-13 17:12:00 Emergency Bogdan Gabriel [facility] 1.0.114 350.1.13.10 4.2.7.2.686 [id number] [facility] 2023-08-13 13:15:00 2023-08-13 13:15:00 Outpatient R PETE OWENS [facility] [id number] [facility] 2023-08-13 00:00:00 2023-08-13 00:00:00 Patient Secure Msg Pete Owens [facility] 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 MED[facility]ICE [facility] ..114 350.1.13.10 4.2.7.2.686 [id number] [facility] 2023-08-02 00:00:00 2023-08-02 00:00:00 Telephone Bronwyn Wellington [facility] [place] [facility] 1.84.114 350.1.13.10 4.2.7.2.686 [id number] [facility] 2023-07-30 00:00:00 2023-07-30 00:00:00 Patient Secure Msg Bronwyn Wellington [facility] [place] [facility] 1.2.840.114 350.1.13.10 4.2.7.2.686 [id number] [facility] 2023-07-29 14:05:00 2023-07-29 23:59:00 Hospital Encounter [facility] 1.2840.114 350.1.13.10 4.2.7.2.686 [id number] [facility] 2023-07-29 15:00:00 2023-07-29 15:15:00 Researcher Visit Lab, [facility] Juan Hernandez Emilio B [facility] 1..114 350.1.13.10 4.2.7.2.686 [id number] [facility] 2023-07-29 13:40:00 2023-07-29 14:40:01 Outpatient R [facility] [id number] [facility] 2023-07-29 13:40:00 2023-07-29 14:00:00 Office Visit [facility] 1..114 350.1.13.10 4.2.7.2.686 [id number] [facility] 2023-07-28 15:00:00 2023-07-28 15:00:00 Outpatient R BRONWYN WELLINGTON [facility] [id number] [facility] 2023-07-26 00:00:00 2023-07-26 00:00:00 Patient Secure Tawnya Mendez [facility] 1..114 350.1.13.10 4.2.7.2.686 [id number] [facility] 2023-07-23 00:00:00 2023-07-23 00:00:00 Orders Only Doctor Unassigned, Reeder [facility] 1.0.114 350.1.13.10 4.2.7.2.686 [id number] [facility] 2023-07-21 00:00:00 2023-07-21 00:00:00 RefThais García [facility] 1..840.114 350.1.13.10 4.2.7.2.686 [id number] [facility] 2023-07-14 15:30:00 2023-07-14 16:00:00 Office Visit Malik Tawnya [facility] 1.2840.114 350.1.13.10 4.2.7.2.686 [id number] [facility] 2023-07-14 15:30:00 2023-07-14 15:30:00 Outpatient R TAWNYA GAN [facility] [id number] [facility] 2023-07-14 14:00:00 2023-07-14 14:00:00 Outpatient R MALIK TAWNYA [facility] [id number] [facility] 2023-07-13 11:00:00 2023-07-13 11:00:00 Outpatient R MALIK [facility] [id number] [facility] 2023-07-13 00:00:00 2023-07-13 00:00:00 Refill Irene Mari [facility] 1..840.114 350.1.13.10 4.2.7.2.686 [id number] [facility] 2023-07-07 14:20:00 2023-07-07 15:54:59 Outpatient R [facility] [id number] [facility] 2023-07-07 14:20:00 2023-07-07 15:54:59 Office Visit Bronwyn [place] [facility] [id number] [facility] [facility] 2023-07-05 00:00:00 2023-07-05 00:00:00 Case Management Tawana Jean [facility] L[facility] LEASE INFORMATION CLERK [facility] 1.2840.114 350.1.13.10 4.2.7.2.686 [id number] [facility] 2023-07-05 00:00:00 2023-07-05 00:00:00 Patient Secure Msg Bronwyn Wellington [facility] 1.0.114 350.1.13.10 4.2.7.2.686 [id number] [facility] 2023-07-05 00:00:00 2023-07-05 00:00:00 Patient Secure Msg Tawana Jean [facility] L[facility] LEASE INFORMATION CLERK [facility] 1.0.114 350.1.13.10 4.2.7.2.686 [id number] [facility] 2023-07-02 00:00:00 2023-07-02 00:00:00 Telephone Tawana Jean [facility] [employer] [employer] INFORMATION CLERK [facility] 1.2840.114 350.1.13.10 4.2.7.2.686 [id number] 107 [id number] [facility] 2023-07-01 14:45:00 2023-07-01 15:52:34 Outpatient R TAWANA JEAN [facility] [id number] [facility] 2023-07-01 14:45:00 2023-07-01 15:52:34 Office Visit Tawana Jean [facility] LAND LEASE INFORMATION CLERK [facility] 1.2840.114 350.1.13.10 4.2.7.2.686 [id number] [facility] 2023-07-01 00:00:00 2023-07-01 00:00:00 Letter (Out) Tawana Jean [facility] L[employer] LEASE INFORMATION CLERK [facility] 1.2.840.114 350.1.13.10 4.2.7.2.686 [id number] [facility] 2023-06-30 15:00:00 2023-06-30 15:00:00 Outpatient R TAWNYA GAN [facility] [id number] [facility] 2023-06-23 12:50:00 2023-06-23 14:31:22 Outpatient R BRONWYN WELLINGTON [facility] [id number] [facility] 2023-06-23 12:50:00 2023-06-23 14:31:22 Office Visit Bronwyn Wellington [facility] 1.2.840.114 350.1.13.10 4.2.7.2.686 [id number] [facility] 2023-06-23 00:00:00 2023-06-23 00:00:00 Patient Secure Msg Bronwyn Wellington [facility] 1.2.840.114 350.1.13.10 4.2.7.2.686 [id number] [facility] 2023-06-23 00:00:00 2023-06-23 00:00:00 Patient Secure Msg Doctor Unassigned, Reeder [facility] 1.2840.114 350.1.13.10 4.2.7.2.686 [id number] [facility] 2023-06-22 08:00:00 2023-06-22 09:11:03 Outpatient R UNRULY TRAN [facility] [id number] [facility] 2023-06-22 08:00:00 2023-06-22 09:11:03 Office Visit Juan Reece Emilio B [facility] 1..114 350.1.13.10 4.2.7.2.686 [id number] [id number] [facility] 2023-06-22 00:00:00 2023-06-22 00:00:00 Telephone Bronwyn Wellington [facility] 1..114 350.1.13.10 4.2.7.2.686 [id number] [facility] 2023-06-21 18:13:00 2023-06-21 20:19:00 Emergency X JESSICA TORRES [facility] ERT [id number] [facility] 2023-06-21 18:13:00 2023-06-21 20:19:00 Emergency Jessica Torres [facility] 1..114 350.1.13.10 4.2.7.2.686 [id number] [facility] 2023-06-21 00:00:00 2023-06-21 00:00:00 Patient Secure Msg Thais Marin [facility] MEDICAL OFFICE BUILDING 1.84114 350.1.13.10 4.2.7.2.686 [id number] [id number] [facility] 2023-06-20 00:00:00 2023-06-20 00:00:00 Telephone Thais Marin [facility] 1.84114 350.1.13.10 4.2.7.2.686 [id number] [id number] [facility] 2023-06-17 00:00:00 2023-06-17 00:00:00 Patient Secure Msg Thais Marin [facility] 1.2.840.114 350.1.13.10 4.2.7.2.686 [id number] [facility] 2023-06-16 20:00:00 2023-06-16 20:36:02 Outpatient R IRENE MARI [facility] [id number] [facility] 2023-06-16 20:00:00 2023-06-16 20:36:02 Urgent Care Irene Mari Unknown, Attending [facility] 1..840.114 350.1.13.10 4.2.7.2.686 [id number] [facility] 2023-06-10 10:30:00 2023-06-10 10:30:00 Outpatient R ROMULO CHERRY STRAKHADIJAHL [facility] [id number] [facility] 2023-06-03 10:00:00 2023-06-03 10:15:00 Researcher Visit [facility] Sleep Lab Romulo Cherry [facility] 1..840.114 350.1.13.10 4.2.7.2.686 [id number] [facility] 2023-06-03 10:00:00 2023-06-03 10:00:00 Outpatient R ROMULO CHERRY STRAHIL [facility] [id number] [facility] 2023-06-03 00:00:00 2023-06-03 00:00:00 Orders Only Doctor Unassigned, Reeder [facility] 1..840.114 350.1.13.10 4.2.7.2.686 [id number] [facility] 2023-06-01 09:00:00 2023-06-01 09:00:00 Outpatient R ROMULO CHERRY STRAHIL [facility] [id number] [facility] 2023-05-26 14:00:00 2023-05-26 14:41:13 Outpatient R THAIS MARIN [facility] [id number] [facility] 2023-05-26 14:00:00 2023-05-26 14:41:13 Office Visit Thais Marni [facility] 1.840.114 350.1.13.10 4.2.7.2.686 [id number] [facility] 2023-05-26 00:00:00 2023-05-26 00:00:00 Telephone Thais Marin [facility] OFF[facility] 1.84.114 350.1.13.10 4.2.7.2.686 [id number] [facility] 2023-05-21 09:00:00 2023-05-21 09:00:00 Outpatient R THAIS MARIN [facility] [id number] [facility] 2023-05-18 13:32:49 2023-05-18 23:59:00 Outpatient R CARLITO MORAN [facility] [id number] [facility] 2023-05-18 13:00:00 2023-05-18 23:59:00 Hospital Encounter Carlito Moran [facility] 1.840.114 350.1.13.10 4.2.7.2.686 [id number] [facility] 2023-05-10 14:30:00 2023-05-10 15:53:08 Outpatient R CARLITO MORAN [facility] [id number] [facility] 2023-05-10 14:30:00 2023-05-10 15:53:08 Routine Visit Clinic, [facility] Resident Carlito Moran [facility] 1.840.114 350.1.13.10 4.2.7.2.686 [id number] [facility] 2023-05-06 11:30:00 2023-05-06 12:05:01 Outpatient R LORENA KIRK [facility] [id number] [facility] 2023-05-06 11:30:00 2023-05-06 12:05:01 Office Visit Lorena Kirk [facility] MEDICAL OFFICE BUILDING 1.114 350.1.13.10 4.2.7.2.686 [id number] [facility] 2023-05-06 00:00:00 2023-05-06 00:00:00 Letter (Out) Lorena Kirk [facility] MED[facility] OFFICE BUILDING 1.114 350.1.13.10 4.2.7.2.686 [id number] [facility] 2023-05-04 00:00:00 2023-05-04 00:00:00 Patient Secure Msg Doctor Unassigned, Reeder [facility] 1.114 350.1.13.10 4.2.7.2.686 [id number] [facility] 2023-05-03 00:00:00 2023-05-03 00:00:00 Transition of Care Shy Posada 1..114 350.1.13.10 4.2.7.2.686 [id number] [facility] 2023-04-26 05:34:00 2023-05-01 17:08:00 Inpatient R LORENA KIRK [facility] ELOY [id number] [facility] 2023-04-26 05:34:00 2023-05-01 17:08:00 Hospital Encounter Bandar Baca Otto W Wu, Laura J [facility] 1.114 350.1.13.10 4.2.7.2.686 [id number] [facility] 2023-04-23 16:00:00 2023-04-23 17:14:36 Outpatient R THAIS MARIN [facility] [id number] [facility] 2023-04-23 16:00:00 2023-04-23 17:14:36 Office Visit Thais Marin [facility] 1.284114 350.1.13.10 4.2.7.2.686 [id number] [id number] [facility] 2023-04-14 00:00:00 2023-04-14 00:00:00 Patient Secure Msg Umaña-OrJose rodgers [facility] 1..114 350.1.13.10 4.2.7.2.686 [id number] [facility] 2023-04-14 00:00:00 2023-04-14 00:00:00 Patient Secure Msg Doctor Unassigned, Reeder [facility] 1.84114 350.1.13.10 4.2.7.2.686 [id number] [facility] 2023-04-12 00:00:00 2023-04-12 00:00:00 Patient Secure Msg Doctor Unassigned, Reeder [facility] 1..114 350.1.13.10 4.2.7.2.686 [id number] [facility] 2023-04-09 10:30:00 2023-04-09 10:45:00 Researcher Visit Pcp-Ludy Park [facility] 1.2.114 350.1.13.10 4.2.7.2.686 [id number] [facility] 2023-04-09 08:30:00 2023-04-09 10:17:59 Outpatient R LUDY BRIDGES [facility] [id number] [facility] 2023-04-09 08:30:00 2023-04-09 10:17:59 Office Visit Jose Cardona Vijaya Laxmi [facility] 1.2.840.114 350.1.13.10 4.2.7.2.686 [id number] [id number] [facility] 2023-04-09 00:00:00 2023-04-09 00:00:00 Letter (Out) Jose Cardona [facility] 1.2.840.114 350.1.13.10 4.2.7.2.686 [id number] [facility] 2023-04-08 00:00:00 2023-04-08 00:00:00 Telephone Thais Marin [facility] MED[facility] OFF[facility] BUILD[facility] 1.2840.114 350.1.13.10 4.2.7.2.686 [id number] [id number] [facility] 2023-04-08 00:00:00 2023-04-08 00:00:00 Patient Secure Msg Doctor Unassigned, Reeder [facility] 1.2840.114 350.1.13.10 4.2.7.2.686 [id number] [id number] [facility] 2023-04-07 14:15:00 2023-04-07 15:42:31 Researcher Visit Lab, David - Thais Mulligan [facility] MED[facility] OFF[facility] BUILDING 1.2840.114 350.1.13.10 4.2.7.2.686 [id number] [facility] 2023-04-07 13:30:00 2023-04-07 14:10:07 Outpatient R THAIS MARIN [facility] [id number] [facility] 2023-04-07 13:30:00 2023-04-07 14:10:07 Office Visit Thais Marin [facility] 1.2.840.114 350.1.13.10 4.2.7.2.686 [id number] [facility] 2023-04-05 13:15:00 2023-04-05 15:10:25 Outpatient R BANDAR BACA [facility] [id number] [facility] 2023-04-05 13:15:00 2023-04-05 15:10:25 Office Visit Pgy2 SaculBandar [facility] 1.840.114 350.1.13.10 4.2.7.2.686 [id number] [facility] 2023-03-23 13:00:00 2023-03-23 13:00:00 Outpatient R [facility] [id number] [facility] 2023-03-23 00:00:00 2023-03-23 00:00:00 Telephone Alissa Leon [facility] 1..840.114 350.1.13.10 4.2.7.2.686 [id number] [facility] 2023-03-12 00:00:00 2023-03-12 00:00:00 Telephone Tawana Jean [facility] L[place] LEASE INFORMATION CLERK [facility] MATERNAL & CHILD [facility] 1.84.114 350.1.13.10 4.2.7.2.686 [id number] [facility] 2023-02-05 09:00:00 2023-02-05 09:00:00 Outpatient R TAWANA JEAN [facility] [id number] [facility] 2023-02-04 11:00:00 2023-02-04 11:00:00 Outpatient R KEVIN PELLETIER CHERYAL [facility] [id number] [facility] 2023-02-01 10:15:00 2023-02-01 14:26:48 Outpatient R LUPE BACATTE [facility] [id number] [facility] 2023-02-01 10:15:00 2023-02-01 14:26:48 Telemedici ne Visit Trimester, [facility] Res-1st Lupe Bacatte [facility] 1..840.114 350.1.13.10 4.2.7.2.686 [id number] [facility] 2023-01-26 16:00:00 2023-01-26 16:00:00 Outpatient R KEVIN PELLETIER CHERYAL [facility] [id number] [facility] 2023-01-26 00:00:00 2023-01-26 00:00:00 Patient Secure Msg Tawana Jean [facility] L[place] LE[place] INFORMATION CLERK [facility]ERNAL & [facility] 1..840.114 350.1.13.10 4.2.7.2.686 [id number] [facility] 2023-01-25 20:52:00 2023-01-25 23:28:00 Emergency X GAURAV JOHN [facility] ERT [id number] [facility] 2023-01-25 20:52:00 2023-01-25 23:28:00 Emergency Gaurav John [facility] 1..840.114 350.1.13.10 4.2.7.2.686 [id number] [facility] 2023-01-18 14:39:00 2023-01-18 16:33:00 Emergency X DEB BENAVIDEZ [facility] ERT [id number] [facility] 2023-01-18 14:39:00 2023-01-18 16:33:00 Emergency Deb Benavidez [facility] 1.840.114 350.1.13.10 4.2.7.2.686 [id number] [facility] 2023-01-18 09:30:00 2023-01-18 11:22:09 Outpatient R BANDAR BACA [facility] [id number] [facility] 2023-01-18 09:30:00 2023-01-18 11:22:09 Routine Visit Trimester, [facility] Res-1st Bandar Baca [facility] 1.0.114 350.1.13.10 4.2.7.2.686 [id number] [facility] 2023-01-14 00:00:00 2023-01-14 00:00:00 Patient Secure Msdereck DavidrafaelaLotusMariajose Shahab [facility] 1.840.114 350.1.13.10 4.2.7.2.686 [id number] [facility] 2023-01-08 10:30:00 2023-01-09 17:30:00 Outpatient X GINETTE MARIAJOSE [facility] SAIMA [id number] [facility] 2023-01-08 10:30:00 2023-01-09 17:30:00 Emergency Clary Richmond Mariajose Shahab [facility] 1.2840.114 350.1.13.10 4.2.7.2.686 [id number] [id number] [facility] 2023-01-08 20:03:18 2023-01-08 20:03:18 Anesthesia Event Ese Puga Fernando [facility] 1.2840.114 350.1.13.10 4.2.7.2.686 [id number] [facility] 2023-01-08 17:45:00 2023-01-08 19:13:00 Surgery Mariajose Ramsey [facility] 1..840.114 350.1.13.10 4.2.7.2.686 [id number] [facility] 2023-01-08 10:30:00 2023-01-08 10:30:00 Outpatient R PETE OWENS [facility] [id number] [facility] 2023-01-04 12:21:39 2023-01-04 23:59:00 Hospital Encounter [facility] 1.840.114 350.1.13.10 4.2.7.2.686 [id number] [facility] 2023-01-04 08:30:00 2023-01-04 11:08:47 Outpatient P PIPPA PASSES [facility] [id number] [facility] 2023-01-04 08:30:00 2023-01-04 11:08:47 Routine Visit Trimester, [facility] Res-1st [facility] 1.2.840.114 350.1.13.10 4.2.7.2.686 [id number] [facility] 2023-01-04 10:45:00 2023-01-04 11:00:00 Researcher Visit [facility] 1.840.114 350.1.13.10 4.2.7.2.686 [id number] [facility] 2023-01-01 22:42:00 2023-01-02 01:04:00 Emergency X GAURAV JOHN [facility] ERT [id number] [facility] 2023-01-01 22:42:00 2023-01-02 01:04:00 Emergency Gaurav John [facility] 1.840.114 350.1.13.10 4.2.7.2.686 [id number] [facility] 2023-01-01 16:00:00 2023-01-01 16:47:46 Outpatient R TEODORA WILSONALICE [facility] [id number] [facility] 2023-01-01 16:00:00 2023-01-01 16:47:46 [facility]ear[facility] L[facility] LEASE INFORMATION CLERK [facility] MATERNAL & CHILD [facility] 1.840.114 350.1.13.10 4.2.7.2.686 [id number] [facility] 2023-01-01 15:30:00 2023-01-01 16:00:00 [facility] INFORMATION CL[facility] MATERNAL & CHILD [email or web address] 1.840.114 350.1.13.10 4.2.7.2.686 [id number] [facility] 2023-01-01 00:00:00 2023-01-01 00:00:00 Patient Secure Msg Doctor Unassigned, Reeder [facility] 1.840.114 350.1.13.10 4.2.7.2.686 [id number] [facility] 2022-12-21 10:30:00 2022-12-21 11:40:15 Outpatient R TAWANA JEAN [facility] [id number] [facility] 2022-12-21 10:30:00 2022-12-21 11:40:15 Routine Visit Tawana Jean [facility] L[place] LEASE INFORMATION CLERK [facility] MATERNAL & CHILD [facility] 1.840.114 350.1.13.10 4.2.7.2.686 [id number] [facility] 2022-12-21 10:30:00 2022-12-21 10:30:00 Outpatient R TAWANA JEAN [facility] [id number] [facility] 2022-12-21 00:00:00 2022-12-21 00:00:00 Orders Only Doctor Unassigned, Reeder [facility] 1..840.114 350.1.13.10 4.2.7.2.686 [id number] [facility] 2022-12-18 09:30:00 2022-12-18 09:30:00 Outpatient R PETE OWENS [facility] [id number] [facility] 2022-12-17 04:15:00 2022-12-17 09:43:00 Emergency EM Saad Valdovinos [facility] [id number] 40 [facility] 2022-12-17 00:00:00 2022-12-17 00:00:00 Patient Secure Msg Pete Owens [facility] L[employer] LEASE INFORMATION CLERK [facility] & CHILD [facility] 1..840.114 350.1.13.10 4.2.7.2.686 [id number] [facility] 2022-12-14 00:00:00 2022-12-14 00:00:00 Telephone Pete Owens [facility] LAND LEASE INFORMATION CLERK [facility] 1.2.840.114 350.1.13.10 4.2.7.2.686 [id number] [facility] 2022-12-12 00:00:00 2022-12-12 00:00:00 Case Management Tawana Jean [facility] LAND LEASE INFORMATION CLERK [facility]ILD [facility] 1.2.840.114 350.1.13.10 4.2.7.2.686 [id number] [facility] 2022-12-12 00:00:00 2022-12-12 00:00:00 Patient Secure Msg Pete Owens Dorothea [facility] L[employer] LEASE INFORMATION CLERK [facility] 1.2.840.114 350.1.13.10 4.2.7.2.686 [id number] [facility] 2022-12-11 10:00:00 2022-12-11 12:03:06 Outpatient R FREYA PETE [facility] [id number] [facility] 2022-12-11 10:00:00 2022-12-11 12:03:06 Initial Visit Pete Owens Dorothea [facility] L[employer] LEASE INFORMATION CLERK [facility] 1.840.114 350.1.13.10 4.2.7.2.686 [id number] [facility] 2022-12-09 10:45:00 2022-12-09 12:04:26 Outpatient R TAWANA JEAN [facility] [id number] [facility] 2022-12-09 10:45:00 2022-12-09 12:04:26 Office Visit Tawana Jean [facility] 1.840.114 350.1.13.10 4.2.7.2.686 [id number] [facility] 2022-12-09 00:00:00 2022-12-09 00:00:00 Orders Only Doctor Unassigned, Reeder [facility] 1.2840.114 350.1.13.10 4.2.7.2.686 [id number] [facility] 2022-12-07 00:00:00 2022-12-07 00:00:00 Patient Secure Msg Tawana Jean [facility] L[employer] LEASE INFORMATION CLERK [facility] 1.2.840.114 350.1.13.10 4.2.7.2.686 [id number] [facility] 2022-12-03 00:00:00 2022-12-03 00:00:00 Telephone Pcp, Patient Does Not Have A [facility] .840.114 350.1.13.10 4.2.7.2.686 [id number] [facility] 2022-11-27 08:45:00 2022-11-27 08:45:00 Outpatient R PETE OWENS [facility] [id number] [facility] 2022-11-26 13:45:00 2022-11-26 13:45:00 Outpatient R TAWANA JEAN [facility] [id number] [facility] 2022-11-26 10:45:00 2022-11-26 10:45:00 Outpatient R TAWANA JEAN [facility] [id number] [facility] 2022-11-12 15:00:00 2022-11-12 15:39:24 Outpatient R TAWANA JEAN [facility] [id number] [facility] 2022-11-12 15:00:00 2022-11-12 15:39:24 Office Visit Tawana Jaen [facility] [place] INFORMATION CLERK [facility] 1..840.114 350.1.13.10 4.2.7.2.686 [id number] [facility] 2022-11-11 13:00:00 2022-11-11 13:00:00 Outpatient R [facility] [id number] [facility] 2022-11-11 00:00:00 2022-11-11 00:00:00 Telephone [facility] .840.114 350.1.13.10 4.2.7.2.686 [id number] [facility] 2022-10-28 00:00:00 2022-10-28 00:00:00 Telephone [facility] .114 350.1.13.10 4.2.7.2.686 [id number] [facility] 2022-10-22 15:00:00 2022-10-22 15:40:25 Outpatient TAWANA LLANOS [facility] [id number] [facility] 2022-10-22 15:00:00 2022-10-22 15:40:25 Routine Visit Tawana Jean [facility] [place] [facility] [facility] 1..114 350.1.13.10 4.2.7.2.686 [id number] [facility] 2022-10-22 00:00:00 2022-10-22 00:00:00 Orders Only Doctor Unassigned, Reeder [facility] 1.114 350.1.13.10 4.2.7.2.686 [id number] [facility] 2022-10-20 10:45:00 2022-10-20 10:45:00 [id number] 2022-10-13 08:45:00 2022-10-13 08:45:00 [facility] [id number] [facility] 2022-09-29 09:15:00 2022-09-29 09:15:00 Outpatient SANDHYA ASKEW KARREN [facility] [id number] [facility] 2022-09-29 00:00:00 2022-09-29 00:00:00 Patient Secure Msg Gillian Wagner [facility] 1..114 350.1.13.10 4.2.7.2.686 [id number] [facility] 2022-09-26 17:36:00 2022-09-28 13:20:00 Outpatient X PAIGE MELISSA [facility] [id number] [facility] 2022-09-26 17:36:00 2022-09-28 13:20:00 Emergency Evie, Winifred Paige SantanaJuan Franck [facility] 1.2.840.114 350.1.13.10 4.2.7.2.686 [id number] [facility] 2022-09-28 13:15:00 2022-09-28 13:15:00 Outpatient R TAWANA JEAN [facility] [id number] [facility] 2022-09-28 00:00:00 2022-09-28 00:00:00 Patient Secure Msg Tawana Jean [facility] [place] [facility]FORMATION CLERK [facility] 1.2.840.114 350.1.13.10 4.2.7.2.686 [id number] [facility] 2022-09-27 19:45:00 2022-09-27 21:10:00 Surgery Gillian Wagner [facility] [place] 1.2.840.114 350.1.13.10 4.2.7.2.686 [id number] [facility] 2022-09-23 22:37:00 2022-09-24 02:17:00 Emergency X ARIANA CASTRO [facility] [facility] [id number] [facility] 2022-09-23 22:37:00 2022-09-24 02:17:00 Emergency Ariana Castro [facility] 1.2.840.114 350.1.13.10 4.2.7.2.686 [id number] [facility] 2022-09-24 00:00:00 2022-09-24 00:00:00 Case Management Tawana Jean [facility] [employer] INFORMATION CLERK [facility] 1..840.114 350.1.13.10 4.2.7.2.686 [id number] 107 [id number] [facility] 2022-09-24 00:00:00 2022-09-24 00:00:00 Patient Secure g EleonoramarshallTawana NYCHERYL [employer] [employer] INFORMATION CLERK [facility] 1..840.114 350.1.13.10 4.2.7.2.686 [id number] 107 [id number] [facility] 2022-09-23 16:00:00 2022-09-23 16:48:21 Outpatient R TAWANA JEAN [facility] [id number] [facility] 2022-09-23 16:00:00 2022-09-23 16:48:21 Routine Visit Tawana Jean NYCHERYL [employer] INFORMATION CLERK [facility] 1..840.114 350.1.13.10 4.2.7.2.686 [id number] 107 [id number] [facility] 2022-09-23 12:45:00 2022-09-23 12:45:00 Outpatient R TAWANA JEAN [facility] [id number] [facility] 2022-09-17 16:00:00 2022-09-17 16:00:00 Outpatient R [facility] [id number] [facility] 2022-09-10 15:45:00 2022-09-10 15:45:00 Outpatient R TAWANA JEAN [facility] [id number] [facility] 2022-09-08 13:45:00 2022-09-08 13:45:00 Outpatient R TAWANA JEAN [facility] [id number] [facility] 2022-08-28 00:00:00 2022-08-28 00:00:00 Patient Secure EleonoramarshallTawana [facility] [employer] INFORMATION CLERK [facility] 1.2.840.114 350.1.13.10 4.2.7.2.686 [id number] 107 [id number] [facility] 2022-08-27 00:00:00 2022-08-27 00:00:00 Patient Secure Tawana Ortiz [facility] [employer] INFORMATION CLERK [facility] 1.2.840.114 350.1.13.10 4.2.7.2.686 [id number] 107 [id number] [facility] 2022-08-13 00:00:00 2022-08-13 00:00:00 Case Management Tawana Jean [facility] 1.2.840.114 350.1.13.10 4.2.7.2.686 [id number] 107 [id number] [facility] 2022-08-13 00:00:00 2022-08-13 00:00:00 Patient Secure Tawana Ortiz [facility] [employer] INFORMATION CLERK [facility] 1.2.840.114 350.1.13.10 4.2.7.2.686 [id number] 107 [id number] [facility] 2022-08-12 07:45:00 2022-08-12 08:09:39 Researcher Visit Lab, [facility] [facility] 1.2.840.114 350.1.13.10 4.2.7.2.686 [id number] 107 [id number] [facility] 2022-08-12 07:45:00 2022-08-12 07:45:00 Outpatient TAWANA LLANOS [facility] [id number] [facility] 2022-08-11 14:30:00 2022-08-11 16:26:19 Outpatient TAWANA LLANOS [facility] [id number] [facility] 2022-08-11 14:30:00 2022-08-11 16:26:19 Initial Visit Provider, David-Rmchp Tawana Skaggs [facility] [employer] INFORMATION CLERK [facility] 1.114 350.1.13.10 4.2.7.2.686 [id number] 107 [id number] [facility] 2022-08-11 00:00:00 2022-08-11 00:00:00 Orders Only Doctor Unassigned, Reeder [facility] 1.114 350.1.13.10 4.2.7.2.686 [id number] [facility] 2022-07-14 08:15:00 2022-07-14 08:15:00 Outpatient TAWANA LLANOS [facility] [id number] [facility] 2022-05-23 10:30:00 2022-05-23 10:30:00 Outpatient R [facility] [id number] [facility] 2022-05-23 10:30:00 2022-05-23 10:30:00 Outpatient R CM CERVANTES [facility] [id number] [facility] 2022-05-01 08:00:00 2022-05-01 08:00:00 Outpatient TAWANA LLANOS [facility] [id number] [facility] 2022-04-30 07:45:00 2022-04-30 07:45:00 Outpatient R WILBERT WILLOUGHBY [facility] [id number] [facility] 2022-04-27 02:06:00 2022-04-27 02:53:00 Emergency X WINIFRED JAMES [facility] [id number] [facility] 2022-04-27 02:06:00 2022-04-27 02:53:00 Emergency Winifred James G [facility] 1..114 350.1.13.10 4.2.7.2.686 [id number] [facility] 2022-04-27 00:00:00 2022-04-27 00:00:00 Orders Only Doctor Unassigned, Reeder [facility] 1.2840.114 350.1.13.10 4.2.7.2.686 [id number] [facility] 2022-04-18 10:45:00 2022-04-18 11:50:36 Outpatient R SULEIMAN LOERA [facility] [id number] [facility] 2022-04-18 10:45:00 2022-04-18 11:50:36 Office Visit Provider, Sangeetha Hickmansie [facility] [employer] INFORMATION CLERK [facility] 1.2.84.114 350.1.13.10 4.2.7.2.686 [id number] 107 [id number] [facility] 2022-04-17 00:00:00 2022-04-17 00:00:00 Telephone Peet Owens [facility] [employer] INFORMATION CLERK [facility] 1.84.114 350.1.13.10 4.2.7.2.686 [id number] 107 [id number] [facility] 2022-04-16 12:45:00 2022-04-16 12:45:00 Outpatient R TAWANA JEAN [facility] [id number] [facility] 2022-04-03 00:00:00 2022-04-03 00:00:00 Orders Only Doctor Unassigned, Reeder [facility] 1.84.114 350.1.13.10 4.2.7.2.686 [id number] [id number] [facility] 2022-04-02 12:45:00 2022-04-02 14:18:13 Outpatient R LOUISE PRADO [facility] [id number] [facility] 2022-04-02 12:45:00 2022-04-02 14:18:13 Office Visit Provider, RadhaRmchp Wilbert Marin Kathryn C [facility] [employer] INFORMATION CLERK [facility] 1..840.114 350.1.13.10 4.2.7.2.686 [id number] 107 [id number] [facility] 2022-04-01 09:00:00 2022-04-01 09:00:00 Outpatient WILBERT MUNGUIA [facility] [id number] [facility] 2022-01-21 13:15:00 2022-01-21 13:15:00 Outpatient PETE CONNOR [facility] [id number] [facility] 2022-01-16 00:00:00 2022-01-16 00:00:00 Jamie Carroll [facility]GYN [facility] ..840.114 350.1.13.10 4.2.7.2.686 [id number] 107 [id number] [facility] 2022-01-15 00:00:00 2022-01-15 00:00:00 Patient Secure Msg Doctor Unassigned, Reeder [facility] 1..840.114 350.1.13.10 4.2.7.2.686 [id number] [facility] 2022-01-14 00:00:00 2022-01-14 00:00:00 Outpatient ARMINDA_MELI AMELIA GONZALEZ [facility] [id number] [place] [facility] 2022-01-01 00:00:00 2022-01-01 00:00:00 Patient Secure Wilbert Willoughby [facility] [employer] INFORMATION CLERK [facility] 1..840.114 350.1.13.10 4.2.7.2.686 [id number] 107 [id number] [facility] 2021-12-31 00:00:00 2021-12-31 00:00:00 Telephone Jamie Wall [facility] [employer] INFORMATION CLERK [facility] 1.2.840.114 350.1.13.10 4.2.7.2.686 [id number] 107 [id number] [facility] 2021-12-31 00:00:00 2021-12-31 00:00:00 Telephone Wilbert Willoughby [facility] [employer] INFORMATION CLERK [facility] 1.2.840.114 350.1.13.10 4.2.7.2.686 [id number] 107 [id number] [facility] 2021-12-30 14:30:00 2021-12-30 16:19:20 Office Visit Provider, Jamie Friedman [facility] [employer] INFORMATION CLERK [facility] 1..840.114 350.1.13.10 4.2.7.2.686 [id number] 107 [id number] [facility] 2021-12-30 14:30:00 2021-12-30 16:19:20 Outpatient JAMIE GAYTAN EMILY [facility] [id number] [facility] 2021-12-30 14:30:00 2021-12-30 14:30:00 Outpatient JAMIE GAYTAN EMILY [facility] [id number] [facility] 2021-12-18 09:45:00 2021-12-18 09:45:00 Outpatient WILBERT MUNGUIA [facility] [id number] [facility] 2021-12-03 13:00:00 2021-12-03 13:00:00 Outpatient WILBERT MUNGUIA [facility] [id number] [facility] 2021-12-02 00:00:00 2021-12-02 00:00:00 Patient Secure Msg Wilbert Willoughby [facility] [employer] INFORMATION CLERK [facility] 1.2.840.114 350.1.13.10 4.2.7.2.686 [id number] 107 [id number] [facility] 2021-12-02 00:00:00 2021-12-02 00:00:00 Telephone Myranda Willoughbycathy [facility] L[employer] LEASE INFORMATION CLERK [facility] 1.2840.114 350.1.13.10 4.2.7.2.686 [id number] 107 [id number] [facility] 2021-12-01 13:30:00 2021-12-01 13:30:00 Outpatient R MYRANDA WILLOUGHBYCATHY [facility] [id number] [facility] 2021-12-01 13:30:00 2021-12-01 13:30:00 Outpatient R MYRANDA WILLOUGHBYCATHY [facility] [id number] [facility] 2021-11-13 00:00:00 2021-11-13 00:00:00 Telephone Myranda Willoughbycathy [facility] L[employer] INFORMATION CLERK [facility] 1.0.114 350.1.13.10 4.2.7.2.686 [id number] 107 [id number] [facility] 2021-11-11 14:45:00 2021-11-11 16:08:19 Outpatient R MYRANDA WILLOUGHBYCATHY [facility] [id number] [facility] 2021-11-11 14:45:00 2021-11-11 16:08:19 Office Visit Myranda Willoughbycathy [facility] L[employer] INFORMATION CLERK [facility] 1.2840.114 350.1.13.10 4.2.7.2.686 [id number] 107 [id number] [facility] 2021-11-11 00:00:00 2021-11-11 00:00:00 Orders Only Doctor Unassigned, Reeder [facility] 1.2840.114 350.1.13.10 4.2.7.2.686 [id number] [id number] [facility] 2021-04-07 00:00:00 2021-04-07 00:00:00 Patient Secure Wilbert Blanco [facility] [employer] INFORMATION CLERK [facility] 1.2.840.114 350.1.13.10 4.2.7.2.686 [id number] 107 [id number] [facility] 2021-03-21 14:45:00 2021-03-21 14:45:00 Outpatient PETE CONNOR [facility] [id number] [facility] 2021-03-20 00:00:00 2021-03-20 00:00:00 Telephone Pete Owens [facility] [employer] INFORMATION CLERK [facility] 1..840.114 350.1.13.10 4.2.7.2.686 [id number] 107 [id number] [facility] 2021-03-19 14:45:00 2021-03-19 14:45:00 Outpatient JAMIE HOPPER [facility] [id number] [facility] 2021-03-18 15:15:00 2021-03-18 15:15:00 Outpatient JAMIE HOPPER [facility] [id number] [facility] 2021-03-16 22:39:00 2021-03-17 01:20:00 Emergency Sam Chase [facility] 1..840.114 350.1.13.10 4.2.7.2.686 [id number] [facility] 2021-02-20 00:00:00 2021-02-20 00:00:00 Telephone Lara Atkinson [facility] 1..840.114 350.1.13.10 4.2.7.2.686 [id number] [facility] 2021-02-19 02:37:00 2021-02-19 03:44:00 Emergency Paige Melissa S [facility] 1.2.840.114 350.1.13.10 4.2.7.2.686 [id number] [facility] 2020-09-10 00:00:00 2020-09-10 00:00:00 Patient Outreach Juan Marshall [facility] 1.2.840.114 350.1.13.10 4.2.7.2.686 [id number] 2020-09-10 00:00:00 2020-09-10 00:00:00 Patient Outreach Juan Marshall [facility] 1.2.840.114 350.1.13.10 4.2.7.2.686 [id number] [facility] 2020-08-27 10:30:00 2020-08-27 10:30:00 Outpatient R WILBERT WILLOUGHBY [facility] [id number] [facility] 2020-08-26 13:30:00 2020-08-26 13:30:00 Outpatient R [facility] [id number] [facility] 2020-07-11 13:15:00 2020-07-11 13:15:00 Outpatient R WILBERT WILLOUGHBY [facility] [id number] [facility] 2020-06-27 15:21:42 2020-06-27 16:19:38 Office Visit Wilbert Willoughby [facility] L[employer] LE[employer] INFORMATION CLERK [facility] 1.2.840.114 350.1.13.10 4.2.7.2.686 [id number] 107 [id number] 2020-06-27 15:21:42 2020-06-27 16:19:38 Office Visit Wilbert Willoughby [facility] L[employer] LE[employer] INFORMATION CLERK [facility] 1.2.840.114 350.1.13.10 4.2.7.2.686 [id number] 107 [id number] [facility] 2020-06-27 15:30:00 2020-06-27 15:30:00 Outpatient WILBERT MUNGUIA [facility] [id number] [facility] 2020-06-05 15:15:00 2020-06-05 15:15:00 Outpatient WILBERT MUNGUIA [facility] [id number] [facility] 2020-03-29 00:00:00 2020-03-29 00:00:00 Patient Secure Msg Doctor Unassigned, Reeder [facility] 1.2.840.114 350.1.13.10 4.2.7.2.686 [id number] [facility] 2020-03-27 19:22:00 2020-03-28 00:39:00 Emergency Sam Chase [facility] 1.2.840.114 350.1.13.10 4.2.7.2.686 [id number] [facility] 2019-12-05 01:22:11 2019-12-05 03:48:00 Emergency Radha Hawkins Lee [facility] 1.2.840.114 350.1.13.10 4.2.7.2.686 [id number] [facility] 2019-12-05 01:22:11 2019-12-05 03:48:00 Emergency X CHEO RADHA [facility] [id number] [facility] 2019-11-15 19:21:57 2019-11-16 00:00:00 Emergency Sam Chase [facility] 1.2.840.114 350.1.13.10 4.2.7.2.686 [id number] [facility] 2019-11-15 19:21:57 2019-11-16 00:00:00 Emergency X Sam CHASE [facility] [id number] [facility] 2019-10-19 04:35:17 2019-10-19 06:17:00 Emergency Anil, Katye R [facility] 1.2.840.114 350.1.13.10 4.2.7.2.686 [id number] [facility] 2019-10-19 04:35:17 2019-10-19 06:17:00 Emergency LUISA GUERRERO [facility] [id number] [facility] 2019-08-31 03:53:07 2019-08-31 05:03:00 Emergency Jessica Bob [facility] 1.2.840.114 350.1.13.10 4.2.7.2.686 [id number] [facility] 2019-08-31 03:53:07 2019-08-31 05:03:00 Emergency X JESSICA BOB [facility] [id number] [facility] 2019-06-09 16:17:18 2019-06-09 19:21:00 Emergency MANAN GARCIA III [facility] [id number] [facility] 2019-01-29 15:09:14 2019-01-29 18:22:00 Emergency Manan Pérez [facility] 1.2.840.114 350.1.13.10 4.2.7.2.686 [id number] [facility] 2019-01-29 00:00:00 2019-01-29 00:00:00 Orders Only Doctor Unassigned, Reeder [facility] 1.2.840.114 350.1.13.10 4.2.7.2.686 [id number] [facility] Results Test Description Test Time Test Comments Results Result Co mments Source [facility] [id number] 19:56:00* Test Item Value Reference Range Interpretation Comme nts POCT PREG (test code = 1605) Negative On board controls acceptable with C Line (test code = 3574) Yes POCT PREG LOT # (test code = 3575) POCT PREG TEST DATE ( test code = 3576) [facility] BETA HCG [id number] 22:07:50* Test Item Value Reference Range Interpretation Comme nts BETA HCG (test code = 4817662278) 7.37 See_Comment [Automated Tesarisa ge] The system which generated this result transmitted reference range: Non- female and male patients: <5 mIU/mL. The reference range was not used to interpret this result as normal/abnormal. MARCELINO (test code = MARCELINO) Gestational Age ?Range (mIU/mL) 1-10 ?Weeks ?[id number] Weeks ?71465-12746374-50 Weeks ?0282-51361013-46 Weeks ?0151-269179 Biotin has been reported to cause a negative bias, interpret results relative to patient's use of biotin. [facility]. METABOLIC PANEL (50134)2023-08-13 21:50:11* Test Item Value Reference Range Interpretation Comme nts NA (test code = 1536975710) 139 mmol/L 135-145 K (test code = 5892529237) 4.0 mmol/L 3.5-5.0 CL (test code = 8131414552) 108 mmol/L 98-108 CO2 TOTAL (test code = 1742699388) 25 mmol/L 23-31 AGAP (test code = 5534149789) 6 2-16 BUN (test code = 1461299568) 11 mg/dL 7-23 GLUCOSE (test code = 6570702045) 93 mg/dL 70-110 CREATININE (test code = 2160-0) 0.61 mg/dL 0.50-1.04 TOTAL BILI (test code = 1206257681) 0.5 mg/dL 0.1-1.1 CALCIUM (test code = 5496690884) 8.7 mg/dL 8.6-10.6 T PROTEIN (test code = 6237086929) 8.1 g/dL 6.3-8.2 ALBUMIN (test code = 6303432811) 4.1 g/dL 3.5-5.0 ALK PHOS (test code = 0416111990) 71 U/L 34-122 ALTv (test code = 1742-6) 18 U/L 5-35 AST(SGOT) (test code = 5668075579) 28 U/L 13-40 eGFR (test code = 72406-4) 124.3 mL/min/1.73m2 CKD-EPI eGFR (20 21). Assuming creatinine has been stable day-to-day for at least three months, the eGFR indicates Category G1 (>= 90 mL/min/1.73 m2) [facility] WITH [id number] 21:38:26* Test Item Value Reference Range Interpretation Comme nts WBC (test code = 6690-2) 5.67 4.30-11.10 RBC (test code = 789-8) 4.56 3.93-5.25 HGB (test code = 718-7) 11.4 g/dL 11.6-15.0 L HCT (test code = 4544-3) 37.1 % 35.7-45.2 MCV (test code = 787-2) 81.4 fL 80.6-95.5 MCH (test code = 785-6) 25.0 pg 25.9-32.8 L MCHC (test code = 786-4) 30.7 g/dL 31.6-35.1 L RDW-SD (test code = 59164-8) 49.0 fL 39.0-49.9 RDW-CV (test code = 788-0) 16.7 % 12.0-15.5 H PLT (test code = 777-3) 416 166-358 H MPV (test code = 94126-3) 10.0 fL 9.5-12.9 NRBC/100 WBC (test code = 6160396968) 0.0 0.0-10.0 NRBC x10^3 (test code = 7533957556) See_Comment [Automated messa ge] The system which generated this result transmitted reference range: 10*3/?L. The reference range was not used to interpret this result as normal/abnormal. GRAN MAT (NEUT) % (test code = 770-8) 62.4 % IMM GRAN % (test code = 2379527819) 0.20 % LYMPH % (test code = 736-9) 27.3 % MONO % (test code = 5905-5) 8.1 % EOS % (test code = 713-8) 1.1 % BASO % (test code = 706-2) 0.9 % GRAN MAT x10^3(ANC) (test code = 7918567424) 3.54 10*3/uL 1.88-7.09 IMM GRAN x10^3 (test code = 5835016825) 0.00-0.06 LYMPH x10^3 (test code = 731-0) 1.55 10*3/uL 1.32-3.29 MONO x10^3 (test code = 742-7) 0.46 10*3/uL 0.33-0.92 EOS x10^3 (test code = 711-2) 0.06 10*3/uL 0.03-0.39 BASO x10^3 (test code = 704-7) 0.05 10*3/uL 0.01-0.07 Lab Interpretation (test code = 27057-1) Abnormal [facility] and Screen - ONCE [id number] 21:33:00 * Test Item Value Reference Range Interpretation Comme nts ABO & RH (test code = 20) A Positive IAT (test code = 1185) Negative [facility] URINALYSIS W SPECIFIC [id number] 21:39:00* Test Item Value Reference Range Interpretation Comme nts POCT U SP GRAV (test code = 3255) . 1.005-1.025 POCT PH U (test code = 3254) 5 mg/dl 5-8 POCT U LEUK EST (test code = 3263) Trace Negative - Negative POCT U NIT (test code = 3262) Neg Negative - Negati ve POCT U PROT (test code = 3259) Trace Negative - Negat debra POCT U GLU (test code = 3256) Nml Negative - Negati ve POCT U KETONE (test code = 3258) None Negative - Neg ative POCT U UROBILI (test code = 3260) . 0.2-1 POCT U BILI (test code = 3261) . Negative - Negat debra POCT U BLD (test code = 3257) Trace Negative - Negati ve POCT U COLOR (test code = 3266) . POCT U APPEAR (test code = 3267) .. [facility] URINALYS[facility] W SPECIFIC [id number] 21:39:00* Test Item Value Reference Range Interpretation Comme nts POCT U SP GRAV (test code = 3255) . 1.005-1.025 POCT PH U (test code = 3254) 5 mg/dl 5-8 POCT U LEUK EST (test code = 3263) Trace Negative - Negative POCT U NIT (test code = 3262) Neg Negative - Negati ve POCT U PROT (test code = 3259) Trace Negative - Negat debra POCT U GLU (test code = 3256) Nml Negative - Negati ve POCT U KETONE (test code = 3258) None Negative - Neg ative POCT U UROBILI (test code = 3260) . 0.2-1 POCT U BILI (test code = 3261) . Negative - Negat debra POCT U BLD (test code = 3257) Trace Negative - Negati ve POCT U COLOR (test code = 3266) . POCT U APPEAR (test code = 3267) .. [facility] [id number] 20:00:41* Test Item Value Reference Range Interpretation Comme nts Case Report (test code = 5984949492) Surgical Pathology ?Case: [id number] ? Authorizing Provider: ?Bandar Baca MD ? Collected: ? 04/26/2023 0816 ?Ordering Location: ? ? [facility] OR ? Received: ?04/26/2023 1015 ? Department ? Pathologist: ? Olga Hearn MD ?Specimen: ? ?ENDOMETRIUM, ENDOMETRIAL CURETTINGS ? Final Diagnosis (test code = [id number]) d2xbzYNgECKup2xtVMMvpK FuZzEwMzNcZnRuYmpcdWMx XUqqnlUrIWmugEckVWU4AC IvGP7qnWoepZh6gSqkNVHt zzC9mJQtLZjsf1eeEMJ3b5 pqvpycHXBhGMsuPn8hvGZq mOupGdLyMGToGAl0sQ65OL XtgL4poOUnDTe4JKEszBAq zqCdXsToEQNsqBJjvUB0PH HgAX4sorsbWDwhVFtmHZNh tpO8YJCqoRCkP9MrZXNjJW 9yigpdJUF8CWfaPYXxVPL9 PoFiWNNhk6Ajsng9NzOxwH FyZFxwbGFpblxmczIwXHBh ciBBLiBFTkRPTUVUUklVTS fbW8CFWMTPAUqCMuuyVVKv TSJbQLOyBLIXK7sQSjQLJP HPVgAgCL4AH61SGJHQUZ9u cGFyXHBhciBIYXNhbmFpbi PNYnB1zTdbXcQbkiEGTFCl biwgTUQgIFxwYXJcZnMyMi SZpGcuHK9iWVRtvaTkakmv TUQgIDExLzcvMjAyMyAgMj owMCBQTVxwYXJccGFyZFxm dtAbJKUbcgfgYCS4x4thqQ YxXHNzdGVjZjIyMDAwXGFu r9wvSIKxlNPwKeOpXfOjRh VxIcfoxBGhOINzNgAft3ze s331sURce1aiSLRmZgR4bB WvRYDnqUvnedk7vPxlWsTh UEYlb3hkbcLzAuYlJVWySC TzFXTzyFHoW370GDNpSGnj g0wim6EmLJSoaJTem5C7XZ ASBIxkEvLiG904y5dzz6bh bnWewMX9SIKhFAP2MWywhl DjaxE5FXctfLDzAvY8PRgk ipUoWIudqaDsyuPzCdu3BX RxC228PSM5xUjhg8bsTJU3 EXYmQGBbUqcdWh8biLHcB0 71PIBzUDUISMYpaKk4OGCt wxSngePnnLKAx712D401e3 frVTYdohJkaAfQnyrts9ac L327PKSkqSIbzyQvFrPaCA LkwZOvuJO9VRLsGR7eytor WHpdZSkrQNXzlfO1XIRpgP GrI7FxJZLyTF4ariqcCIW8 NKxpTKHcLRM0TwXkIOLpv3 Ojwhd3VdKrho8zot39BUH2 n0MquGauASL6QMM3GuTuFb 9reGDeMCWrRU3xIzZegPHa OIHmbu67dAbmEFezhwVsnM 2uTbAyWLLlnQSsDLDlQT9e sQDaLYHwvH9idphyAWWyOb JaxpozOGResIalkxJeGd8b jAzwIYH3QGevF6vivS6tOe Z4VJpeF4ejxY0vMAw6RYqv zVL3UWDunY3nUQ4mwsris4 glFQzkBUyjGSBdwaR0ftU6 DLHbhVLyZ6OasU6wMRArSD 5gathrq1wlDTQ0KTuqGRMu PSQ7XeTfKEQxj7Yfxjs5Ti Ioz9JyqIBeAJzeT66rb566 YLUapvFxO8crhRFtxxaqnK TuxtdgGGcuwlM8SAZnRRPt YWluXGYxXGZzMjBcbGFuZz EwMzNcaGljaFxmMVxkYmNo GKAeWPvsV0qiAmBcX4LuIC LmJiXcwHAmFDvoaFX0KYVx MFQwa58ppJy8JWPpwvgxe1 PhWZOoyWSwaUBcaI8mwnTq l5mrSPCoNPJgQEDkJ4WwWD P9nGFaGFCiqTUlgOL1JU3h uwLnHL1zPPWnEpmlklRlbO VgblXhPKDeLUect0izHX0h OEHzxUwpgF4rhMJ9FPJae2 bfzDXabOMrg1rog4WixqDi ZShzKSBtYXkgYXBwZWFyIG 8fFGXczOZcslOjy9T8Ijav bQYnkcsrXgpddmI8ICycdt sfVXXlYPnwV6dbYiRmEOJr lNnkPifbd6DmSNGlOFSoFb hccGFyfX0= Clinical Information (test code = 1236494761) Abnormal uterine bleeding [N93.9] Gross Description (test code = 4540526062) i4zjyFPyZFYflNQMEUW3BP FlFS6vwFswmPp5wOsjCCUp leZ0qNImWYsdw2ttBED6z5 njrxMGErygYXBpQZ8kYVpf QROvDN5wUsQeDFCtEkWqAW BhcGVydzEyMjQwXHBhcGVy bKF9QDDfCD0nnqpzLMcdJL cyHHPzisK1RVZeoGAbS9Kv CFCcDW3dmmbpWBS3RMJKDm kbGb8juQZukPesNxBpGbRr YXJzZXQwXGZuaWwgQXJpYW b0eK8RJjymGXV2VMENAuyd WrojdMznb2NvxZDnYSApDI xcaWQgNTEwMDAgXFxkYiBP ItXwRfR8KTbnFlA9XoX9OU p8HXBHPRWqGfs3KAG0MdX7 XMa8KKFyXQ7gQAwxgRVoLX nuQhotRCstI675TRicJVTd R5UdA2NfBKtcLcIiOQfgIF MeHEUrFNjnZSFwL3NUNGOf FIt1PoAgFZOgMEk9RWehW2 ONGOVyKDP5KPL2XVG2GsL3 TIf9PMYQUr1zFRq7KAT8KU Q5IZA0PDf6FyZbKMWmLoPv XFTsEKAyMCrraHSnME5zyU zbRPQrOP1DRWDrFOdlUKBn QnLdH4KEJ3nCXL0yDMbnhQ JjaFxmczIyXHBhciANClxw OUNjDP4NZYEbGBmgHMy9bc BrXRBhBjSaNOOaT09fa0MX d2StZJ4QYLb6phBjkbBCRg NwZWNpbWVuIEEgaXMgcmVj LHk2VFEcVvHhf4onfADtUU hoJSX7pJPqRDQrIQApHMVo BJ54Y3OlhbRwVHhbUBvesu FrMnPxCXQbfnYinXC2aeyb bCBjdXJldHRpbmdzIiBhbm YwP25qe6vdtJFyz1LyXSE1 fJw9KTGyCLHpEJFmO3qjt4 j2iKBnK8ifAKnuwVZrb7Yx wIPbOPQajojptRMgKAk9gL MhNZPiIbGgdPudx9DiKSRy SWwjIM02vaQqTM08CHzvIU 2fSLdaOW8oTBNjQAndZZVl Y8WdK7P4ZSowLRDaDYSnbZ TcyT2nopVqjuFafHb1PKLi LOF9kUQjgPgeXCDzBgacuI Y4TOWpBhLbzbSbe9BvaCq5 sTZyNOabKDLrkX8wqP2tOQ EuXHBhciANClxwYXIgDQpc h2FgJDvjsLbgREDxLsKaAR hYPJL4IYAvsaCskQgoGQTH QSAoQVNDUCkNClxlcGljTm PdiIKjOtY2DVXngDEgICP1 NF1aoJhgOUEcP6QoH4Knnr Y8PTPzjyLLXyxjOAHgRL6A fQ== Disclaimer (test code = 4024970362) a2wniYOuJDUfp8smFBTzkN FuZzEwMzNcZnRuYmpcdWMx NXwlzuWnQBtym2SgS7YbXx AwMFxhbnNpXGRlZmxhbmcx GRZtIGL9hlPjOFRjQHhjPS HnJYeyNb9opVGfaZnxHzBe QXPut8kqiuBSKEyqKhZtH3 81SBUgGAmiv6lrk1HjICIc cOWcc4Q1KPWFcwvhuWm3yY xyF98gp9K4PvrhY3uiCLLo PHKwE9BtTY1hSXAySzj8PV E5OTE3YOChPUNkP9GmKT8e USFpkIZyPYv2x7qpgSjrNH RuCIV8g7coDYoabvRcRD2h nv7gwTl5i8mkshWpOACxXN FrlTENJAKwI5AaaLbzVo6t kUd4nHjgBvncHFL1Fby0HL 9vxz08aur6hBdgBCAiniaq LsH2AXkuHZCcjpreEOo1JN enTBXqjRF5ILMrdVOeJ1Cn HVXxKB7qwlh4DON9WQybKO VxQnD5XRKqfCEzBJQevUpd NVyrp738UMS6IdZeRN1kA7 Ntt1B7zJ0ckAMeCRRhfYMn WjEcXRVifu4ieBFrNHphn5 CrQRO6eeY4fBXudQExZRAv TD72Aqgvm0ZnKfaua0FwF8 2qiWQ7CPrqo9ywXT4iDbN5 izSiSKxma9pfyN4pEuJ5OK gmKG8sTJ3zPGRhcB0jmnez XHBnYnJkcmhlYWRccGdicm MyUr6xiZyhCRP6DVltV2xi yA4jQrD5DLijK3dupN7cJR o6QBgcqAV2GHWelF6fKR7n nokjq1ptWLaiQYcmPJZhbf F7wtH5EDNzoSQnN5NmaQ2q QYSsZC6bvctxo7xaNQP8XL ecKHXyLNY0BcXoVSWyh6Rp vnx4PpKek3UtdXFgMSxbS7 2cg147XMKogcYjC4rysHWu fodbhFFdvaskZZvwzxX9JZ UhacEmp0LvFGYoENH0SUcu YSwcwFGcFNPhqDsni4ulG2 RscGFyXHBsYWluXGYxXGZz MjBcbGFuZzEwMzNcaGljaF qsFBofIsKvNOMpDKvuW3es XgTzM6GrYXBkWnGmdCPxZ9 ggVGhpcyByZXBvcnQgbWF5 TPpaF3y3PHXtzrYicFz8iz UgIkSrAJXaABV2GAjukDBi YSLcq7TlrluktTRpFx1muO XpILPixJ8lIIJnTVQiMHke CE0wlIe0DEJEiNHuwHSpKz VZKWExEB23xkAoKCDWmshx l2W7YMugNCFvq3PvdVIuQ5 rsv5GzQWRxx13qED1vt5P3 o3fnGOC2VL8sr8RfLJEqlN DhoHJrVWBnb8Zquutyc8Jk BAYzewAgb1NeMPPwsuAtcI EbUKAupcAsis3brjVhXMZk ULAkC5GqdvwtmQqraoBwRO Ljnv6yzkPhYMS5CJFBUAKr CCZpa2MhzP8kxHNXREH9dC Tuor9bajEZhJIjHRCawu61 DMDmHN5oI2ysZYSeATCklb WtaMWdi4IbFUAqxZN9eEUp QM8CXpVCx56cMUGaSRWTdu EoHWMvlVwwcUF7cwH3nA1c IChGREEpLlx+IFRoZSBGRE IxOX4ilcClc9LlofBakCzp KGLyjOYgg9SlhCLnh2MeoZ tcf5HekTSntEAcUN0sGDYx clxwYXIgVVRNQiBMYWJvcm Z6v2RmUWOuXJVxPJD5fElu cwk0TQBojN0iPEYcU2unvl moPIyyTOIfj4CcxB4vhSEA iDVlg7YfyXMifCWXmURjFU 5nhfCeQDzHMDfTDUT2yxDl KVVfp1WkGMrsP4crQ34znE ejxLo6bMF1YBQ6xZ8oFqr+ IFxwYXJccGFyIEFwcHJvcH ExFLQtlUikxiRrD4GklzKb kL2ciCZhrmKrBO1kTO3iF5 N6hNZoQXVopfSfw5yvBZpt dmUgYmVlbiByZXZpZXdlZC Bcz6GrERnlVCD8WUqxznOy bmNsdWRpbmcgSCZFLCBTcG DtnUSeMIP7QLdzfpLzvsZp LO5agO0usOtvqK5zkFQjgK Q3vkgyZOVjPFIgwWmaLQEg HI6nxPbskG3uJyQpOiDpXC dfMM7bMFYyC7chdRLoXDXf HPKyF8kbFaSkjX2guMbuBX xjZjJcZnMyMFxwYXJccGFy XHBsYWluXGYxXGZzMjBcbG FuZzEwMzNcaGljaFxmMVxk YzVsYNEjGZvsA2apWfNfA0 BvDRCwKqDaiXMqN3vmDTrm KUR1ROQmRA1apRHxXP38qQ Csh1ejWQvugGeqgj2qM37z nTIfPPybwZnyIVNbm05vd1 CjPXLxgaUwrw5oFFUvygW6 mI4vBMYchKajASNxnHGyPY Llo9CsHSsmxXNcnsKdPPoo CBKiAWOrnBTccoX5lbAnoo DcwmVfDNKxjOjpEUPyy3Kg XPSaLZzzj0Ghhw5bvMPsUT NndnTTvOfmrPQafQ6xR8Jb PUEzIPGtbs4tFRHalQ3qFD jtj3JjzbgoOGMvLLNgNRYv yyMufc6fXBUlzVRLSN3CXK tmzXMgq2DimeWpW9jGUHQ2 NUQwNjYwMjgxKSBleGNlcH ViPHKxoz65OYFebA3ybWxr IAVpeH7meY5qtUakaY5kMz GnVsHiSHjjVT8lQZYeA3ei aRHxYNTjIPBcU7olSwBhrD 9jaFxmMVxjZjJcZnMyMFxw YXJ9fQ== Embedded Images (test code = 1840768931) [facility] [id number] 11:43:00* Test Item Value Reference Range Interpretation Comme [facility] POCT PREG (test code = 1605) Negative On board controls acceptable with C Line (test code = 3574) Yes POCT PREG LOT # (test code = 3575) POCT PREG TEST DATE ( test code = 3576) Lab Interpretation (test cod e = 52523-5) Normal [facility] LakewayG6PD SCREENING [id number] 17:39:58* Test Item Value Reference Range Interpretation Comme [facility] G6PD SCREEN (test code = 0369408708) Normal Normal MARCELINO (test code = MARCELINO) Normal G6PD activity. ?No evidence of G6PD deficiency. Lab Interpretation (test code = 03926-1) Normal [facility]wayQUANTIFERON TB ASSAY [id number] 18:27:02* Test Item Value Reference Range Interpretation Comme nts QFT Gold Plus Result (test code = 93301-0) Negative Negative MARCELINO (test code = MARCELINO) The QuantiFERON? T B Gold Plus (in Tube) assay is intended for use as an aid in diagnosis of TB infection. This test uses a peptide cocktail of CD4+ and CD8+ T cell antigens to stimulate cells in whole blood. ?Detection of interferon-gamma is used to identify in vitro responses to these peptide antigens that are associated with Mycobacterium tuberculosis infection. A negative result suggests that M. tuberculosis infection is unlikely. ?However, in patients with high suspicion of exposure, a negative test should be repeated on a new sample. A positive result indicates an interferon-gamma response to M. tuberculosis antigens, suggesting infection with M. tuberculosis. Positive results in patients at low-risk for tuberculosis should be interpreted with caution and repeat testing on a new sample is advised. ?If repeat testing is positive, treatment may be indicated. ?Consult Infectious Disease Services for further recommendations. False positive results may occur in patients with prior infection with M. marinum, M. szulgai, or M. kansasii. For an indeterminate result, the likelihood of determining infection with M. tuberculosis cannot be determined. ?If clinically indicated, repeat testing on a new sample is advised. Diagnosing or excluding tuberculosis disease, and assessing the probability of LTBI, requires a combination of epidemiological, historical, medical, and diagnostic findings that should be considered when interpreting QFT-Plus results. ?See general guidance on the diagnosis and treatment of TB disease and LTBI https://www.cdc.gov/tb /publications/guidelin es/default.htm. Lab Interpretation (test code = 06032-5) Normal [facility] LakewayTHIOPURINE METHYLTRANSFERASE, [id number] 03:08:32* Test Item Value Reference Range Interpretation Comme nts THIOPURINE METHYLTRANSFERASE, RBC (test code = 36855-4) 27.1 U/mL 24.0-44.0 INTERPRETIVE INF ORMATION: Thiopurine Methyltransferase, RBC Normal TPMT activity:24.0-44.0 U/mL................Indiv iduals are predicted to be at low risk of bone marrow toxicity (myelosuppression) as a consequence of standard thiopurine therapy; no dose adjustment is recommended. Intermediate TPMT activity:17.0-23.9 U/mL................Indiv iduals are predicted to be at intermediate risk of bone marrow toxicity (myelosuppression) as a consequence of standard thiopurine therapy; a dose reduction and therapeutic drug management is recommended. Low TPMT activity:less than 17.0 U/mL...........Individual s are predicted to be at high risk of bone marrow toxicity (myelosuppression) as a consequence of standard thiopurine dosing. It is recommended to avoid the use of thiopurine drugs. High TPMT activity:greater than 44.0 U/mL........Individuals are not predicted to be at risk for bone marrow toxicity (myelosuppression) as a consequence of standard thiopurine dosing, but may be at risk for therapeutic failure due to excessive inactivation of thiopurine drugs. Individuals may require higher than the normal standard dose. Therapeutic drug management is recommended. The TPMT, RBC assay is used as a screen to detect individuals with low and intermediate TPMT activity who may be at risk for myelosuppression when exposed to standard doses of thiopurines, including azathioprine (Imuran) and 6-mercaptopurine (Purinethol). TPMT is the primary metabolic route for inactivation of thiopurine drugs in the bone marrow. When TPMT activity is low, it is predicted that proportionately more 6-mercaptopurine can be converted into the cytotoxic 6-thioguanine nucleotides that accumulate in the bone marrow causing excessive toxicity. The activity of TPMT is measured by the nanomoles of 6-methylmercaptopurine (inactive metabolite) produced per 1 mL of packed red blood cells, (U/mL). TPMT phenotype testing does not replace the need for clinical monitoring of patients treated with thiopurine drugs. Genotype for TPMT cannot be inferred from TPMT activity (phenotype). Phenotype testing should not be requested for patients currently treated with thiopurine drugs. Current TPMT phenotype may not reflect future TPMT phenotype, particularly in patients who received blood transfusion within 30-60 days of testing. ?TPMT enzyme activity can be inhibited by several drugs such as: naproxen (Aleve), ibuprofen (Advil, Motrin), ketoprofen (Orudis), furosemide (Lasix), sulfasalazine (Azulfidine), mesalamine (Asacol), olsalazine (Dipentum), mefenamic acid (Ponstel), thiazide diuretics, and benzoic acid inhibitors. TPMT inhibitors may contribute to falsely low results; patients should abstain from these drugs for at least 48 hours prior to TPMT testing. Falsely low results may also occur as a result of inappropriate specimen handling and hemolysis. This test was developed and its performance characteristics determined by [facility]. It has not been cleared or approved by the [place] Food and Drug Administration. This test was performed in a CLIA certified laboratory and is intended for clinical purposes.Performed By: [facility] [place] [address] [id number] Director: Alex Adrian MD, PhDCLIA Number: [id number] [facility]wayQUANTIFERON-TB [id number] 21:43:02* Test Item Value Reference Range Interpretation Comme nts Extra Tube (test code = 8193293628) Received in Lab [facility] LakewayLUPUS ANTICOAGULANT REFLEXIVE [id number] 20:21:52* Test Item Value Reference Range Interpretation Comments Prothrombin Time (test code = 5902-2) 13.0 See_Comment [Automated message] The system which generated this result transmitted reference range: 12.0 - 15.5 sec. The reference range was not used to interpret this result as normal/abnormal. PTT-LA Screen (PTT-D) (test code = 46261-9) 43 See_Comment [Automated Tesarisa ge] The system which generated this result transmitted reference range: 32 - 48 sec. The reference range was not used to interpret this result as normal/abnormal. Thrombin Time (test code = 3243-3) Not Applicable See_Comment [Automated messa ge] The system which generated this result transmitted reference range: 14.7 - 19.5 sec. The reference range was not used to interpret this result as normal/abnormal. Reptilase Time (test code = 6683-7) Not Applicable See_Comment [Automated messa ge] The system which generated this result transmitted reference range: <=21.9 sec. The reference range was not used to interpret this result as normal/abnormal. PTT-D Heparin Neutralized (test code = 12475-6) Not Applicable See_Comment [Automated messa ge] The system which generated this result transmitted reference range: 32 - 48 sec. The reference range was not used to interpret this result as normal/abnormal. PTT-D 1:1 Mix (test code = 5946-9) Not Applicable See_Comment [Automated messa ge] The system which generated this result transmitted reference range: 32 - 48 sec. The reference range was not used to interpret this result as normal/abnormal. Platelet Neutralization (PTT-D, Confirm) (test code = 70097-9) Not Applicable Negative dRVVT Screen (test code = 6303-2) 31 See_Comment L [Automated messa ge] The system which generated this result transmitted reference range: 33 - 44 sec. The reference range was not used to interpret this result as normal/abnormal. dRVVT 1:1 Mix (test code = 23522-2) Not Applicable See_Comment [Automated messa ge] The system which generated this result transmitted reference range: 33 - 44 sec. The reference range was not used to interpret this result as normal/abnormal. dRVVT Confirmation (test code = 38683-3) Not Applicable Negative ratio Hexagonal Phospholipid Neutral Reflex (test code = 93927-5) Not Applicable Negative Lupus Anticoagulant Interpretation (test code = 76046-8) See Note Lupus anticoagul ant not detected.The phospholipid-dependen t screening tests (PTT, DRVVT) are not prolonged. Lupus anticoagulant antibodies are heterogeneous and antibody titers fluctuate over time. Laboratory tests used to identify lupus anticoagulants demonstrate variable sensitivity. If there is strong clinical suspicion for antiphospholipid antibody syndrome (APS), consider testing for cardiolipin and beta-2 glycoprotein 1 antibodies (IgG and IgM) if this testing has not already been performed.Performed By: [facility] [place] [address] [id number] Director: Alex Adrian MD, PhDCLIA Number: [id number] Lab Interpretation (test code = 81824-6) Abnormal [facility] LakewayCjbpcmEXRK-ZVMMFLBNDOWKMCLWC5108-10-22 15:04:39* Test Item Value Reference Range Interpretation Comme nts Anti-Ribonucleoprotein (test code = 3294798242) Negative Negative MARCELINO (test code = MARCELINO) Positive - Antibod y detected.Negative - No antibody detected. Lab Interpretation (test code = 62390-6) Normal [facility] LakewayANTI-DUMONT(SM)2023-04-11 15:04:39* Test Item Value Reference Range Interpretation Comme nts Anti-Dumont (test code = 7677886245) Negative Negative MARCELINO (test code = MARCELINO) Positive - Antibod y detected.Negative - No antibody detected. Lab Interpretation (test code = 49438-1) Normal [facility]wayANTI-SSA(RO)2023-04-11 15:04:39* Test Item Value Reference Range Interpretation Comme nts ANTI-SSA(RO) (test code = 6926211740) Negative Negative MARCELINO (test code = MARCELINO) Positive - Antibod y detected.Negative - No antibody detected. Lab Interpretation (test code = 08172-8) Normal [facility]SSB(LA)2023-04-11 15:04:39* Test Item Value Reference Range Interpretation Comme nts Anti-SSB(LA) (test code = 0283729370) Negative Negative MARCELINO (test code = MARCELINO) Positive - Antibod y detected.Negative - No antibody detected. Lab Interpretation (test code = 98998-7) Normal [facility]-DOUBLE STRANDED [id number] 15:04:38* Test Item Value Reference Range Interpretation Comme nts ANTI-DSDNA (test code = 5244316160) See_Comment [Automated message] The system which generated this result transmitted reference range: 0.0 - 4.0 IU/mL. The reference range was not used to interpret this result as normal/abnormal. MARCELINO (test code = MARCELINO) Negative ? ?< or = 4 IU/mLPositive ? ? ?> or = 10 IU/mLIndetermin ate ?5-9 IU/mL Lab Interpretation (test code = 87086-7) Normal [facility] LakewayVITAMIN D, [id number] 21:32:37* Test Item Value Reference Range Interpretation Comme nts VIT D 25OH (test code = 89391-8) 17 ng/mL 25-80 L MARCELINO (test code = MARCELINO) Deficiency: <20 ng/mLInsufficiency: 20-24 ng/mLOptimal: 25-80 ng/mL Lab Interpretation (test code = 97567-6) Abnormal [facility] LakewayC3 [id number] 19:42:07* Test Item Value Reference Range Interpretation Comme nts C3 (test code = 6683546242) 113 mg/dL 86-184 Lab Interpretation (test cod e = 32870-5) Normal [facility] LakewayC4 [id number] 19:42:07* Test Item Value Reference Range Interpretation Comme nts C4 (test code = 7753769296) 40 mg/dL 20-59 Lab Interpretation (test cod e = 46708-7) Normal [facility] LakewayC-REACTIVE [id number] 19:42:07* Test Item Value Reference Range Interpretation Comme nts CRP (test code = 3202583056) 1.4 mg/dL <=0.8 H Lab Interpretation (test cod e = 78098-9) Abnormal [facility] LakewayIRON [id number] 18:18:12* Test Item Value Reference Range Interpretation Comme nts IRON (test code = 2194040457) 35 ug/dL 50-160 L TIBC (test code = 4934398833) 425 ug/dL 250-410 H % FE SAT (test code = 8606510200) 8 % 20-50 L Lab Interpretation (test cod e = 21824-6) Abnormal [facility] LakewayCREATINE [id number] 18:08:29* Test Item Value Reference Range Interpretation Comme nts CK (test code = 1940761945) 31 U/L 33-194 L Lab Interpretation (test cod e = 99087-9) Abnormal [facility] LakewayCOMP. METABOLIC PANEL (36052)2023-01-26 03:18:50* Test Item Value Reference Range Interpretation Comme nts NA (test code = 4709840133) 139 mmol/L 135-145 K (test code = 6165143467) 4.0 mmol/L 3.5-5.0 CL (test code = 1592426107) 103 mmol/L 98-108 CO2 TOTAL (test code = 6779123670) 25 mmol/L 23-31 AGAP (test code = 0806806706) 11 2-16 BUN (test code = 8071456498) 12 mg/dL 7-23 GLUCOSE (test code = 8245813715) 93 mg/dL 70-110 CREATININE (test code = 6612141174) 0.62 mg/dL 0.50-1.04 TOTAL BILI (test code = 3741804098) 0.4 mg/dL 0.1-1.1 CALCIUM (test code = 0336327693) 9.3 mg/dL 8.6-10.6 T PROTEIN (test code = 9568381128) 8.1 g/dL 6.3-8.2 ALBUMIN (test code = 8656971570) 4.4 g/dL 3.5-5.0 ALK PHOS (test code = 0403960641) 89 U/L 34-122 ALTv (test code = 1742-6) 19 U/L 5-35 AST(SGOT) (test code = 1057600327) 34 U/L 13-40 eGFR (test code = 4540040507) 113.8 mL/min/1.73m2 MARCELINO (test code = MARCELINO) Association of Glomerular Filtration Rate (GFR) and Staging of Kidney Disease* + + +- +| GFR (mL/min/1.73 m2) ?| With Kidney Damage ?| ?Without Kidney Damage+ ------+ ----+ ------+| ?>90 ?| ?Stage one ?| ? Normal ?+ -+ + -+| ?60-89 ?| ?Stage two ?| ? Decreased GFR ? + + +- +| ?30-59 ?| ?Stage three ?| ? Stage three ? + + +- +| ?15-29 ?| ?Stage four ? | ? Stage four ?+ -+ + -+| ?<15 (or dialysis) ? ?| ?Stage five ? | ? Stage five ?+ -+ + -+ *Each stage assumes the associated GFR level [...] or urine or abnormalities in imaging tests). [facility] LakewayLIPASE2023-08-08 03:18:49* Test Item Value Reference Range Interpretation Comme nts LIPASE (test code = 8492784484) 132 U/L 0-220 Lab Interpretation (test cod e = 42829-2) Normal [facility] WITH [id number] 02:53:28* Test Item Value Reference Range Interpretation Comme nts WBC (test code = 6690-2) 8.11 See_Comment [Automated Tesarisa ge] The system which generated this result transmitted reference range: 4.30 - 11.10 10*3/?L. The reference range was not used to interpret this result as normal/abnormal. RBC (test code = 789-8) 3.54 See_Comment L [Automated Tesarisa ge] The system which generated this result transmitted reference range: 3.93 - 5.25 10*6/?L. The reference range was not used to interpret this result as normal/abnormal. HGB (test code = 718-7) 9.6 g/dL 11.6-15.0 L HCT (test code = 4544-3) 30.4 % 35.7-45.2 L MCV (test code = 787-2) 85.9 fL 80.6-95.5 MCH (test code = 785-6) 27.1 pg 25.9-32.8 MCHC (test code = 786-4) 31.6 g/dL 31.6-35.1 RDW-SD (test code = 72081-4) 42.7 fL 39.0-49.9 RDW-CV (test code = 788-0) 13.4 % 12.0-15.5 PLT (test code = 777-3) 424 See_Comment H [Automated messa ge] The system which generated this result transmitted reference range: 166 - 358 10*3/?L. The reference range was not used to interpret this result as normal/abnormal. MPV (test code = 22017-1) 9.9 fL 9.5-12.9 IPF % (test code = 9968923560) 2.3 % 1.3-7.7 Platelet count measured by fluorescence method. NRBC/100 WBC (test code = 9607101522) 0.0 See_Comment [Automated Telly ssage] The system which generated this result transmitted reference range: 0.0 - 10.0 /100 WBCs. The reference range was not used to interpret this result as normal/abnormal. NRBC x10^3 (test code = 7497732550) See_Comment [Automated messa ge] The system which generated this result transmitted reference range: 10*3/?L. The reference range was not used to interpret this result as normal/abnormal. GRAN MAT (NEUT) % (test code = 770-8) 59.8 % IMM GRAN % (test code = 3577313239) 0.60 % LYMPH % (test code = 736-9) 29.3 % MONO % (test code = 5905-5) 8.5 % EOS % (test code = 713-8) 1.2 % BASO % (test code = 706-2) 0.6 % GRAN MAT x10^3(ANC) (test code = 9196557615) 4.84 10*3/uL 1.88-7.09 IMM GRAN x10^3 (test code = 8390462373) 0.05 10*3/uL 0.00-0.06 LYMPH x10^3 (test code = 731-0) 2.38 10*3/uL 1.32-3.29 MONO x10^3 (test code = 742-7) 0.69 10*3/uL 0.33-0.92 EOS x10^3 (test code = 711-2) 0.10 10*3/uL 0.03-0.39 BASO x10^3 (test code = 704-7) 0.05 10*3/uL 0.01-0.07 Lab Interpretation (test code = 16898-5) Abnormal [facility] [id number] 02:03:00* Test Item Value Reference Range Interpretation Comme nts POCT PREG (test code = 1605) Negative On board controls acceptable with C Line (test code = 3574) Yes POCT PREG LOT # (test code = 3575) [id number] POCT PREG TEST DATE ( test code = 3576) 03/26/2024 Lab Interpretation (test cod e = 90174-7) Normal [facility] [id number] 17:54:00* Test Item Value Reference Range Interpretation Comme nts POCT PREG (test code = 1605) Positive On board controls acceptable with C Line (test code = 3574) Yes POCT PREG LOT # (test code = 3575) POCT PREG TEST DATE ( test code = 3576) Lab Interpretation (test cod e = 48642-2) Abnormal [facility] WITHOUT [id number] 04:28:06* Test Item Value Reference Range Interpretation Comme nts WBC (test code = 6690-2) 9.73 See_Comment [Automated message] The system which generated this result transmitted reference range: 4.30 - 11.10 10*3/?L. The reference range was not used to interpret this result as normal/abnormal. RBC (test code = 789-8) 3.36 See_Comment L [Automated message] The system which generated this result transmitted reference range: 3.93 - 5.25 10*6/?L. The reference range was not used to interpret this result as normal/abnormal. HGB (test code = 718-7) 9.7 g/dL 11.6-15.0 L HCT (test code = 4544-3) 30.1 % 35.7-45.2 L MCH (test code = 785-6) 28.9 pg 25.9-32.8 MCV (test code = 787-2) 89.6 fL 80.6-95.5 MCHC (test code = 786-4) 32.2 g/dL 31.6-35.1 PLT (test code = 777-3) 204 See_Comment [Automated message] The system which generated this result transmitted reference range: 166 - 358 10*3/?L. The reference range was not used to interpret this result as normal/abnormal. MPV (test code = 32494-3) 10.9 fL 9.5-12.9 RDW-CV (test code = 788-0) 13.1 % 12.0-15.5 RDW-SD (test code = 34290-9) 42.8 fL 39.0-49.9 NRBC x10^3 (test code = 7232943342) See_Comment [Automated messa ge] The system which generated this result transmitted reference range: 10*3/?L. The reference range was not used to interpret this result as normal/abnormal. NRBC/100 WBC (test code = 6333319327) 0.0 See_Comment [Automated messa ge] The system which generated this result transmitted reference range: 0.0 - 10.0 /100 WBCs. The reference range was not used to interpret this result as normal/abnormal. IPF % (test code = 0632165393) Lab Interpretation (test code = 17851-3) Abnormal [facility] WITHOUT [id number] 04:28:06* Test Item Value Reference Range Interpretation Comme nts WBC (test code = 6690-2) 9.73 See_Comment [Automated message] The system which generated this result transmitted reference range: 4.30 - 11.10 10*3/?L. The reference range was not used to interpret this result as normal/abnormal. RBC (test code = 789-8) 3.36 See_Comment L [Automated message] The system which generated this result transmitted reference range: 3.93 - 5.25 10*6/?L. The reference range was not used to interpret this result as normal/abnormal. HGB (test code = 718-7) 9.7 g/dL 11.6-15.0 L HCT (test code = 4544-3) 30.1 % 35.7-45.2 L MCH (test code = 785-6) 28.9 pg 25.9-32.8 MCV (test code = 787-2) 89.6 fL 80.6-95.5 MCHC (test code = 786-4) 32.2 g/dL 31.6-35.1 PLT (test code = 777-3) 204 See_Comment [Automated message] The system which generated this result transmitted reference range: 166 - 358 10*3/?L. The reference range was not used to interpret this result as normal/abnormal. MPV (test code = 43063-6) 10.9 fL 9.5-12.9 RDW-CV (test code = 788-0) 13.1 % 12.0-15.5 RDW-SD (test code = 13229-3) 42.8 fL 39.0-49.9 NRBC x10^3 (test code = 2280564835) See_Comment [Automated messa ge] The system which generated this result transmitted reference range: 10*3/?L. The reference range was not used to interpret this result as normal/abnormal. NRBC/100 WBC (test code = 9562595625) 0.0 See_Comment [Automated [employer]] The system which generated this result transmitted reference range: 0.0 - 10.0 /100 WBCs. The reference range was not used to interpret this result as normal/abnormal. IPF % (test code = 7336521184) Lab Interpretation (test code = 55062-2) Abnormal [facility] BETA HCG [id number] 19:25:18* Test Item Value Reference Range Interpretation Comme nts BETA HCG (test code = 4217753801) 36039.00 See_Comment [Automated [employer]] The system which generated this result transmitted reference range: Non- female and male patients: <5 mIU/mL. The reference range was not used to interpret this result as normal/abnormal. MARCELINO (test code = MARCELINO) Gestational Age ?Range (mIU/mL) 1-10 ?Weeks ?35-60160024-91 Weeks ?08842-43823998-17 Weeks ?7494-34671130-08 Weeks ?1631-021056 Biotin has been reported to cause a negative bias, interpret results relative to patient's use of biotin. [facility] BETA HCG [id number] 19:25:18* Test Item Value Reference Range Interpretation Comme nts BETA HCG (test code = 6699910585) 84849.00 See_Comment [Automated [employer]] The system which generated this result transmitted reference range: Non- female and male patients: <5 mIU/mL. The reference range was not used to interpret this result as normal/abnormal. MARCELINO (test code = MARCELINO) Gestational Age ?Range (mIU/mL) 1-10 ?Weeks ?[phone] Weeks ?79240-08932643-65 Weeks ?0591-85469919-79 Weeks ?[phone] Biotin has been reported to cause a negative bias, interpret results relative to patient's use of biotin. [facility]. METABOLIC PANEL ([id number])2023-01-08 16:46:39* Test Item Value Reference Range Interpretation Comme nts NA (test code = 5834901007) 136 mmol/L 135-145 K (test code = 3875042101) 3.6 mmol/L 3.5-5.0 CL (test code = 1802561429) 104 mmol/L 98-108 CO2 TOTAL (test code = 1888496450) 23 mmol/L 23-31 AGAP (test code = 2197808032) 9 2-16 BUN (test code = 4546589733) 6 mg/dL 7-23 L GLUCOSE (test code = 9850342077) 97 mg/dL 70-110 CREATININE (test code = 3429105234) 0.49 mg/dL 0.50-1.04 L TOTAL BILI (test code = 1951560219) 0.5 mg/dL 0.1-1.1 CALCIUM (test code = 5506799980) 8.7 mg/dL 8.6-10.6 T PROTEIN (test code = 6813498105) 7.5 g/dL 6.3-8.2 ALBUMIN (test code = 3129256078) 3.9 g/dL 3.5-5.0 ALK PHOS (test code = 3499108418) 61 U/L 34-122 ALTv (test code = 1742-6) 18 U/L 5-35 AST(SGOT) (test code = 1666041433) 23 U/L 13-40 eGFR (test code = 3043963391) 149.3 mL/min/1.73m2 MARCELINO (test code = MARCELINO) Association of [...] or abnormalities in imaging tests). Lab Interpretation (test code = 48801-9) Abnormal [facility]. METABOLIC PANEL ([id number])2023-01-08 16:46:39* Test Item Value Reference Range Interpretation Comme nts NA (test code = 9076631800) 136 mmol/L 135-145 K (test code = 4698880580) 3.6 mmol/L 3.5-5.0 CL (test code = 5855810208) 104 mmol/L 98-108 CO2 TOTAL (test code = 6617537729) 23 mmol/L 23-31 AGAP (test code = 4651562638) 9 2-16 BUN (test code = 6526222602) 6 mg/dL 7-23 L GLUCOSE (test code = 6836977857) 97 mg/dL 70-110 CREATININE (test code = 6391312108) 0.49 mg/dL 0.50-1.04 L TOTAL BILI (test code = 6978230932) 0.5 mg/dL 0.1-1.1 CALCIUM (test code = 0171189723) 8.7 mg/dL 8.6-10.6 T PROTEIN (test code = 9990855230) 7.5 g/dL 6.3-8.2 ALBUMIN (test code = 2529991600) 3.9 g/dL 3.5-5.0 ALK PHOS (test code = 7657336898) 61 U/L 34-122 ALTv (test code = 1742-6) 18 U/L 5-35 AST(SGOT) (test code = 4775995091) 23 U/L 13-40 eGFR (test code = 9222865327) 149.3 mL/min/1.73m2 MARCELINO (test code = MARCELINO) Association of [...] or abnormalities in imaging tests). Lab Interpretation (test code = 95696-2) [facility] 16:46:[facility]* Test Item Value Reference Range Interpretation Comme nts LIPASE (test code = 2887355209) 81 U/L 0-220 Lab Interpretation (test cod e = 87765-9) Normal [facility] 16:46:19* Test Item Value Reference Range Interpretation Comme nts LIPASE (test code = 3605803755) 81 U/L 0-220 Lab Interpretation (test cod e = 59355-4) Normal [facility] WITH [id number] 16:37:55* Test Item Value Reference Range Interpretation Comme nts WBC (test code = 6690-2) 6.04 See_Comment [Automated messa ge] The system which generated this result transmitted reference range: 4.30 - 11.10 10*3/?L. The reference range was not used to interpret this result as normal/abnormal. RBC (test code = 789-8) 3.84 See_Comment L [Automated messa ge] The system which generated this result transmitted reference range: 3.93 - 5.25 10*6/?L. The reference range was not used to interpret this result as normal/abnormal. HGB (test code = 718-7) 10.9 g/dL 11.6-15.0 L HCT (test code = 4544-3) 33.0 % 35.7-45.2 L MCV (test code = 787-2) 85.9 fL 80.6-95.5 MCH (test code = 785-6) 28.4 pg 25.9-32.8 MCHC (test code = 786-4) 33.0 g/dL 31.6-35.1 RDW-SD (test code = 84133-4) 40.9 fL 39.0-49.9 RDW-CV (test code = 788-0) 13.1 % 12.0-15.5 PLT (test code = 777-3) 273 See_Comment [Automated messa ge] The system which generated this result transmitted reference range: 166 - 358 10*3/?L. The reference range was not used to interpret this result as normal/abnormal. MPV (test code = 24791-1) 10.2 fL 9.5-12.9 NRBC/100 WBC (test code = 2196328088) 0.0 See_Comment [Automated Telly ssage] The system which generated this result transmitted reference range: 0.0 - 10.0 /100 WBCs. The reference range was not used to interpret this result as normal/abnormal. NRBC x10^3 (test code = 2765856225) See_Comment [Automated messa ge] The system which generated this result transmitted reference range: 10*3/?L. The reference range was not used to interpret this result as normal/abnormal. GRAN MAT (NEUT) % (test code = 770-8) 79.1 % IMM GRAN % (test code = 2885430002) 0.30 % LYMPH % (test code = 736-9) 10.3 % MONO % (test code = 5905-5) 8.6 % EOS % (test code = 713-8) 1.2 % BASO % (test code = 706-2) 0.5 % GRAN MAT x10^3(ANC) (test code = 2464728799) 4.78 10*3/uL 1.88-7.09 IMM GRAN x10^3 (test code = 8281758742) 0.00-0.06 LYMPH x10^3 (test code = 731-0) 0.62 10*3/uL 1.32-3.29 L MONO x10^3 (test code = 742-7) 0.52 10*3/uL 0.33-0.92 EOS x10^3 (test code = 711-2) 0.07 10*3/uL 0.03-0.39 BASO x10^3 (test code = 704-7) 0.03 10*3/uL 0.01-0.07 Lab Interpretation (test code = 32052-6) Abnormal [facility] WITH [id number] 16:37:55* Test Item Value Reference Range Interpretation Comme nts WBC (test code = 6690-2) 6.04 See_Comment [Automated messa ge] The system which generated this result transmitted reference range: 4.30 - 11.10 10*3/?L. The reference range was not used to interpret this result as normal/abnormal. RBC (test code = 789-8) 3.84 See_Comment L [Automated messa ge] The system which generated this result transmitted reference range: 3.93 - 5.25 10*6/?L. The reference range was not used to interpret this result as normal/abnormal. HGB (test code = 718-7) 10.9 g/dL 11.6-15.0 L HCT (test code = 4544-3) 33.0 % 35.7-45.2 L MCV (test code = 787-2) 85.9 fL 80.6-95.5 MCH (test code = 785-6) 28.4 pg 25.9-32.8 MCHC (test code = 786-4) 33.0 g/dL 31.6-35.1 RDW-SD (test code = 26582-8) 40.9 fL 39.0-49.9 RDW-CV (test code = 788-0) 13.1 % 12.0-15.5 PLT (test code = 777-3) 273 See_Comment [Automated messa ge] The system which generated this result transmitted reference range: 166 - 358 10*3/?L. The reference range was not used to interpret this result as normal/abnormal. MPV (test code = 84595-5) 10.2 fL 9.5-12.9 NRBC/100 WBC (test code = 1047973777) 0.0 See_Comment [Automated Telly ssage] The system which generated this result transmitted reference range: 0.0 - 10.0 /100 WBCs. The reference range was not used to interpret this result as normal/abnormal. NRBC x10^3 (test code = 8253310108) See_Comment [Automated messa ge] The system which generated this result transmitted reference range: 10*3/?L. The reference range was not used to interpret this result as normal/abnormal. GRAN MAT (NEUT) % (test code = 770-8) 79.1 % IMM GRAN % (test code = 6491846342) 0.30 % LYMPH % (test code = 736-9) 10.3 % MONO % (test code = 5905-5) 8.6 % EOS % (test code = 713-8) 1.2 % BASO % (test code = 706-2) 0.5 % GRAN MAT x10^3(ANC) (test code = 6051157259) 4.78 10*3/uL 1.88-7.09 IMM GRAN x10^3 (test code = 9451484839) 0.00-0.06 LYMPH x10^3 (test code = 731-0) 0.62 10*3/uL 1.32-3.29 L MONO x10^3 (test code = 742-7) 0.52 10*3/uL 0.33-0.92 EOS x10^3 (test code = 711-2) 0.07 10*3/uL 0.03-0.39 BASO x10^3 (test code = 704-7) 0.03 10*3/uL 0.01-0.07 Lab Interpretation (test code = 47501-9) [facility]OLIC [facility] ([id number])2023-01-02 04:39:51* Test Item Value Reference Range Interpretation Comme nts NA (test code = 9950622302) 136 mmol/L 135-145 K (test code = 2247515623) 5.0 mmol/L 3.5-5.0 CL (test code = 2163042665) 101 mmol/L 98-108 CO2 TOTAL (test code = 0009601308) 25 mmol/L 23-31 AGAP (test code = 2418345644) 10 2-16 BUN (test code = 3507087108) 9 mg/dL 7-23 GLUCOSE (test code = 2329138915) 81 mg/dL 70-110 CREATININE (test code = 1236203484) 0.46 mg/dL 0.50-1.04 L TOTAL BILI (test code = 3083878118) 0.7 mg/dL 0.1-1.1 CALCIUM (test code = 9916384543) 9.6 mg/dL 8.6-10.6 T PROTEIN (test code = 8857494450) 8.4 g/dL 6.3-8.2 H ALBUMIN (test code = 3173477017) 4.5 g/dL 3.5-5.0 ALK PHOS (test code = 4332404318) 61 U/L 34-122 ALTv (test code = 1742-6) 19 U/L 5-35 AST(SGOT) (test code = 8017779406) 32 U/L 13-40 eGFR (test code = 2897267439) 160.6 mL/min/1.73m2 MARCELINO (test code = MARCELINO) Association of [...] or abnormalities in imaging tests). Lab Interpretation (test code = 85828-3) Abnormal [facility] WITH [id number] 04:26:51* Test Item Value Reference Range Interpretation Comme nts WBC (test code = 6690-2) 8.93 See_Comment [Automated [employer]] The system which generated this result transmitted reference range: 4.30 - 11.10 10*3/?L. The reference range was not used to interpret this result as normal/abnormal. RBC (test code = 789-8) 4.16 See_Comment [Automated [employer]] The system which generated this result transmitted reference range: 3.93 - 5.25 10*6/?L. The reference range was not used to interpret this result as normal/abnormal. HGB (test code = 718-7) 12.0 g/dL 11.6-15.0 HCT (test code = 4544-3) 37.0 % 35.7-45.2 MCV (test code = 787-2) 88.9 fL 80.6-95.5 MCH (test code = 785-6) 28.8 pg 25.9-32.8 MCHC (test code = 786-4) 32.4 g/dL 31.6-35.1 RDW-SD (test code = 35626-6) 42.9 fL 39.0-49.9 RDW-CV (test code = 788-0) 13.2 % 12.0-15.5 PLT (test code = 777-3) 389 See_Comment H [Automated messa ge] The system which generated this result transmitted reference range: 166 - 358 10*3/?L. The reference range was not used to interpret this result as normal/abnormal. MPV (test code = 29604-1) 10.1 fL 9.5-12.9 NRBC/100 WBC (test code = 6846388723) 0.0 See_Comment [Automated Telly ssage] The system which generated this result transmitted reference range: 0.0 - 10.0 /100 WBCs. The reference range was not used to interpret this result as normal/abnormal. NRBC x10^3 (test code = 7850273107) See_Comment [Automated messa ge] The system which generated this result transmitted reference range: 10*3/?L. The reference range was not used to interpret this result as normal/abnormal. GRAN MAT (NEUT) % (test code = 770-8) 62.8 % IMM GRAN % (test code = 0131024061) 0.30 % LYMPH % (test code = 736-9) 27.4 % MONO % (test code = 5905-5) 7.2 % EOS % (test code = 713-8) 1.7 % BASO % (test code = 706-2) 0.6 % GRAN MAT x10^3(ANC) (test code = 2585895828) 5.61 10*3/uL 1.88-7.09 IMM GRAN x10^3 (test code = 9087155279) 0.03 10*3/uL 0.00-0.06 LYMPH x10^3 (test code = 731-0) 2.45 10*3/uL 1.32-3.29 MONO x10^3 (test code = 742-7) 0.64 10*3/uL 0.33-0.92 EOS x10^3 (test code = 711-2) 0.15 10*3/uL 0.03-0.39 BASO x10^3 (test code = 704-7) 0.05 10*3/uL 0.01-0.07 Lab Interpretation (test code = 46353-0) [facility] - ONCE [id number] 04:23:00* Test Item Value Reference Range Interpretation Comme nts ABO & RH (test code = 20) A Positive IAT (test code = 1185) Negative [facility] W SPECIFIC [id number] 16:06:00* Test Item Value Reference Range Interpretation Comme nts POCT U SP GRAV (test code = 3255) . 1.005-1.025 POCT PH U (test code = 3254) . 5-8 POCT U LEUK EST (test code = 3263) . Negative - Negative POCT U NIT (test code = 3262) . Negative - Negati ve POCT U PROT (test code = 3259) TRACE Negative - Negat debra POCT U GLU (test code = 3256) NEGATIVE Negative - Negati ve POCT U KETONE (test code = 3258) . Negative - Neg ative POCT U UROBILI (test code = 3260) . 0.2-1 POCT U BILI (test code = 3261) . Negative - Negat debra POCT U BLD (test code = 3257) . Negative - Negati ve POCT U COLOR (test code = 3266) . POCT U APPEAR (test code = 3267) . [facility] [id number] 05:59:00* Test Item Value Reference Range Interpretation Comme nts HCG SERUM (test code = HCG) 04559 mi-IU/ML 0-6 H 0 - 6 NOT PREGNA NT > 6 SUGGESTIVE OF EARLY RISES TWO FOLD EVERY 2 DAYS; SUGGEST RECONFIRMING AFTER 2 DAYS. 150,000-200,[address] TRIMESTER 10,000 - 50,000 2ND & 3RD TRIMESTER CBC W/AUTO [id number] 05:35:00* Test Item Value Reference Range Interpretation Comme nts WHITE BLOOD CELL (test code = WBC) 11.6 K/mm3 3.5-11.0 H RED BLOOD CELL (test code = RBC) 4.31 M/mm3 4.70-6.10 L HEMOGLOBIN (test code = HGB) 12.2 G/DL 10.4-14.9 N HEMATOCRIT (test code = HCT) 38.6 % 31.5-44.1 N MEAN CELL VOLUME (test code = MCV) 89.6 Fl 84.5-98.6 N MEAN CELL HGB (test code = MCH) 28.3 pg 27.0-34.2 N MEAN CELL HGB CONCETRATION (test code = MCHC) 31.6 G/DL 31.5-34.0 N RED CELL DISTRIBUTION WIDTH (test code = RDW) 13.0 SD 11.5-14.5 N PLATELET COUNT (test code = PLT) 347 K/mm3 150-450 N MEAN PLATELET VOLUME (test c ode = MPV) 10.40 fL 7.0-10.5 N NEUTROPHIL % (test code = NT%) 74.8 % 40-76 N IMMATURE GRANULOCYTE % (test code = IG%) 0.3 % 0.0-5.0 N LYMPHOCYTE % (test code = LY%) 17.5 % 20.5-51.1 L MONOCYTE % (test code = MO%) 6.6 % 1.7-9.3 N EOSINOPHIL % (test code = EO%) 0.5 % 0.0-6.0 N BASOPHIL % (test code = BA%) 0.3 % 0.0-2.0 N NUCLEATED RBC % (test code = NRBC%) 0.0 /100WBC% 0.0-1.0 N NEUTROPHIL # (test code = NT#) 8.7 K/mm3 1.8-7.6 H IMMATURE GRANULOCYTE # (test code = IG#) 0.04 x10 3/uL 0.00-0.03 H LYMPHOCYTE # (test code = LY#) 2.0 K/mm3 0.6-3.2 N MONOCYTE # (test code = MO#) 0.8 K/mm3 0.3-1.1 N EOSINOPHIL # (test code = EO#) 0.1 K/mm3 0.0-0.4 N BASOPHIL # (test code = BA#) 0.0 K/mm3 0.0-0.1 N NUCLEATED RBC # (test code = NRBC#) 0.0 K/mm3 0.0-0.1 N MANUAL DIFF REQUIRED (test c ode = MDIFF) NO DIFF/SCN CRITERIA COMPREHENSIVE METABOLIC [id number] 05:27:00* Test Item Value Reference Range Interpretation Comme nts SODIUM (test code = NA) 133 mmol/L 134-147 L POTASSIUM (test code = K) 5.5 mmol/L 3.4-5.0 H CHLORIDE (test code = CL) 105 mmol/L 100-108 N CARBON DIOXIDE (test code = CO2) 24 mmol/L 21-32 N ANION GAP (test code = GAP) 4.0 GAP calc 4.0-15.0 N GLUCOSE (test code = GLU) 104 MG/DL 70-110 N BLOOD UREA NITROGEN (test code = BUN) 5 MG/DL 7-18 L GLOMERULAR FILTRATION RATE (test code = GFR) >=60 max estimate estGFR >60 The Glomerular Filtration Rate is a calculated parameterbased on serum Creatinine, patient age and sex. GFR valuesless than 60 mL/min/1.73 square meters are indicative ofChronic Kidney Disease. Values less than 15 mL/min/1.73square meters indicate Kidney failure. The calculation forGFR is based on the CKD-EPI (202) calculation. This formulais race indifferent and is the recommended formula for GFRby the National Kidney Foundation for Adults.The GFR will not calculate if the sex is unknown or if thepatient's age is <18 years. CREATININE (test code = CREAT) 0.6 MG/DL 0.6-1.0 N TOTAL PROTEIN (test code = PROT) 8.1 G/DL 6.4-8.2 N ALBUMIN (test code = ALB) 3.3 G/DL 3.4-5.0 L GLOBULIN (test code = GLOB) 4.8 GM/dL ALBUMIN/GLOBULIN RATIO (test code = A/G) 0.7 RATIO 1.2-2.2 L CALCIUM (test code = CA) 8.7 MG/DL 8.5-10.1 N BILIRUBIN TOTAL (test code = BILT) 0.30 MG/DL 0.2-1.2 N SGOT/AST (test code = AST) 55 Unit/L 15-37 H SGPT/ALT (test code = ALT) 26 Unit/L 12-78 N ALKALINE PHOSPHATASE TOTAL (test code = ALKP) 97 Unit/L 45-117 N POCT URINALYSIS W/O SPECIFIC [id number] 15:38:00* Test Item Value Reference Range Interpretation Comme nts POCT PH U (test code = 3254) 6 mg/dl 5-8 POCT U LEUK EST (test code = 3263) NEG Negative - Negative POCT U NIT (test code = 3262) POS Negative - Negati ve POCT U PROT (test code = 3259) NEG Negative - Negat debra POCT U GLU (test code = 3256) NEG Negative - Negati ve POCT U KETONE (test code = 3258) NEG Negative - Neg ative POCT U BLD (test code = 3257) NEG Negative - [facility] [id number] 15:38:00* Test Item Value Reference Range Interpretation Comme nts POCT PH U (test code = 3254) 6 mg/dl 5-8 POCT U LEUK EST (test code = 3263) NEG Negative - Negative POCT U NIT (test code = 3262) POS Negative - Negati ve POCT U PROT (test code = 3259) NEG Negative - Negat debra POCT U GLU (test code = 3256) NEG Negative - Negati ve POCT U KETONE (test code = 3258) NEG Negative - Neg ative POCT U BLD (test code = 3257) NEG Negative - Negati ve [facility] [id number] 15:37:00* Test Item Value Reference Range Interpretation Comme nts POCT PREG (test code = 1605) Positive On board controls acceptable with C Line (test code = 3574) Yes POCT PREG LOT # (test code = 3575) POCT PREG TEST DATE ( test code = 3576) [facility] [id number] 15:37:00* Test Item Value Reference Range Interpretation Comme nts POCT PREG (test code = 1605) Positive On board controls acceptable with C Line (test code = 3574) Yes POCT PREG LOT # (test code = 3575) POCT PREG TEST DATE ( test code = 3576) [facility] [id number] 17:56:00* Test Item Value Reference Range Interpretation Comme nts POCT PREG (test code = 1605) Positive On board controls acceptable with C Line (test code = 3574) Yes POCT PREG LOT # (test code = 3575) POCT PREG TEST DATE ( test code = 3576) [facility] [id number] 17:56:00* Test Item Value Reference Range Interpretation Comme nts POCT PREG (test code = 1605) Positive On board controls acceptable with C Line (test code = 3574) Yes POCT PREG LOT # (test code = 3575) POCT PREG TEST DATE ( test code = 3576) [facility] URINALYSIS W/O SPECIFIC [id number] 16:24:00* Test Item Value Reference Range Interpretation Comme nts POCT PH U (test code = 3254) 5 mg/dl 5-8 POCT U LEUK EST (test code = 3263) Trace Negative - Negative POCT U NIT (test code = 3262) Neg Negative - Negati ve POCT U PROT (test code = 3259) Trace Negative - Negat debra POCT U GLU (test code = 3256) Neg Negative - Negati ve POCT U KETONE (test code = 3258) None Negative - Neg ative POCT U BLD (test code = 3257) Trace Negative - Negati ve [facility] URINALYSIS W/O SPECIFIC [id number] 16:24:00* Test Item Value Reference Range Interpretation Comme nts POCT PH U (test code = 3254) 5 mg/dl 5-8 POCT U LEUK EST (test code = 3263) Trace Negative - Negative POCT U NIT (test code = 3262) Neg Negative - Negati ve POCT U PROT (test code = 3259) Trace Negative - Negat debra POCT U GLU (test code = 3256) Neg Negative - Negati ve POCT U KETONE (test code = 3258) None Negative - Neg ative POCT U BLD (test code = 3257) Trace Negative - Negati ve [facility] [id number] 20:16:00* Test Item Value Reference Range Interpretation Comme nts POCT PREG (test code = 1605) Negative On board controls acceptable with C Line (test code = 3574) Yes POCT PREG LOT # (test code = 3575) POCT PREG TEST DATE ( test code = 3576) [facility] (QUANTITATIVE)2022-09-27 00:50:12* Test Item Value Reference Range Interpretation Comme nts BETA HCG (test code = 8710498291) 2138.50 See_Comment [Automated Aptara] The system which generated this result transmitted reference range: Non- female and male patients: <5 mIU/mL. The reference range was not used to interpret this result as normal/abnormal. MARCELINO (test code = MARCELINO) Gestational Age ?Range (mIU/mL) 1-10 ?Weeks ?[phone] Weeks ?99827-55036915-79 Weeks ?9784-51556404-63 Weeks ?1531-746550 Biotin has been reported to cause a negative bias, interpret results relative to patient's use of biotin. [facility] (QUANTITATIVE)2022-09-27 00:50:12* Test Item Value Reference Range Interpretation Comme nts BETA HCG (test code = 3937547036) 2138.50 See_Comment [Automated [employer]] The system which generated this result transmitted reference range: Non- female and male patients: <5 mIU/mL. The reference range was not used to interpret this result as normal/abnormal. MARCELINO (test code = MARCELINO) Gestational Age ?Range (mIU/mL) 1-10 ?Weeks ?[phone] Weeks ?20961-11540493-80 Weeks ?3869-46882033-13 Weeks ?1531-793320 Biotin has been reported to cause a negative bias, interpret results relative to patient's use of biotin. [facility] METABOLIC PANEL ([id number])2022-09-27 00:25:05* Test Item Value Reference Range Interpretation Comme nts NA (test code = 6427464817) 137 mmol/L 135-145 K (test code = 1560083040) 4.3 mmol/L 3.5-5.0 CL (test code = 7457807568) 103 mmol/L 98-108 CO2 TOTAL (test code = 0667230365) 24 mmol/L 23-31 AGAP (test code = 4138521567) 10 2-16 BUN (test code = 2081617119) 9 mg/dL 7-23 GLUCOSE (test code = 2101786685) 88 mg/dL 70-110 CREATININE (test code = 3715818460) 0.54 mg/dL 0.50-1.04 TOTAL BILI (test code = 0650893027) 0.4 mg/dL 0.1-1.1 CALCIUM (test code = 3167258509) 9.4 mg/dL 8.6-10.6 T PROTEIN (test code = 0372817331) 7.9 g/dL 6.3-8.2 ALBUMIN (test code = 4358964931) 4.5 g/dL 3.5-5.0 ALK PHOS (test code = 7337642396) 77 U/L 34-122 ALTv (test code = 1742-6) 18 U/L 5-35 AST(SGOT) (test code = 9826292957) 20 U/L 13-40 eGFR (test code = 8189251843) 133.5 mL/min/1.73m2 MARCELINO (test code = MARCELINO) Association of Glomerular Filtration Rate (GFR) and Staging of Kidney Disease* + + +- +| GFR (mL/min/1.73 m2) ?| With Kidney Damage ?| ?Without Kidney Damage+ ------+ ----+ ------+| ?>90 ?| ?Stage one ?| ? Normal ?+ -+ + -+| ?60-89 ?| ?Stage two ?| ? Decreased GFR ? + + +- +| ?30-59 ?| ?Stage three ?| ? Stage three ? + + +- +| ?15-29 ?| ?Stage four ? | ? Stage four ?+ -+ + -+| ?<15 (or dialysis) ? ?| ?Stage five ? | ? Stage five ?+ -+ + -+ *Each stage assumes the associated GFR level [...] or urine or abnormalities in imaging tests). [facility]. METABOLIC PANEL ([id number])2022-09-27 00:25:05* Test Item Value Reference Range Interpretation Comme nts NA (test code = 5993216707) 137 mmol/L 135-145 K (test code = 9987383141) 4.3 mmol/L 3.5-5.0 CL (test code = 8684392421) 103 mmol/L 98-108 CO2 TOTAL (test code = 1824076161) 24 mmol/L 23-31 AGAP (test code = 5154118654) 10 2-16 BUN (test code = 1944871868) 9 mg/dL 7-23 GLUCOSE (test code = 8739201771) 88 mg/dL 70-110 CREATININE (test code = 3381360232) 0.54 mg/dL 0.50-1.04 TOTAL BILI (test code = 7411563241) 0.4 mg/dL 0.1-1.1 CALCIUM (test code = 5907570637) 9.4 mg/dL 8.6-10.6 T PROTEIN (test code = 3266496968) 7.9 g/dL 6.3-8.2 ALBUMIN (test code = 0301069921) 4.5 g/dL 3.5-5.0 ALK PHOS (test code = 1910652037) 77 U/L 34-122 ALTv (test code = 1742-6) 18 U/L 5-35 AST(SGOT) (test code = 2939785919) 20 U/L 13-40 eGFR (test code = 4647149613) 133.5 mL/min/1.73m2 MARCELINO (test code = MARCELINO) Association of Glomerular Filtration Rate (GFR) and Staging of Kidney Disease* + + +- +| GFR (mL/min/1.73 m2) ?| With Kidney Damage ?| ?Without Kidney Damage+ ------+ ----+ ------+| ?>90 ?| ?Stage one ?| ? Normal ?+ -+ + -+| ?60-89 ?| ?Stage two ?| ? Decreased GFR ? + + +- +| ?30-59 ?| ?Stage three ?| ? Stage three ? + + +- +| ?15-29 ?| ?Stage four ? | ? Stage four ?+ -+ + -+| ?<15 (or dialysis) ? ?| ?Stage five ? | ? Stage five ?+ -+ + -+ *Each stage assumes the associated GFR level [...] or urine or abnormalities in imaging tests). [facility] / [id number] 00:16:48* Test Item Value Reference Range Interpretation Comme [facility] PATIENT (test code = 5964-2) 11.7 See_Comment L [Automated Aptara] The system which generated this result transmitted reference range: 12.0 - 14.7 Seconds. The reference range was not used to interpret this result as normal/abnormal. INR (test code = 6301-6) 0.9 Normal INR <1.1; Warfarin Therapeutic range 2.0 to 3.0 or 2.5 to 3.5, depending upon the indications. Lab Interpretation (test code = 64578-7) Abnormal [facility] / [id number] 00:16:48* Test Item Value Reference Range Interpretation Comme [facility] PROTISABELL PATIENT (test code = 5964-2) 11.7 See_Comment L [Automated messa ge] The system which generated this result transmitted reference range: 12.0 - 14.7 Seconds. The reference range was not used to interpret this result as normal/abnormal. INR (test code = 6301-6) 0.9 Normal INR <1.1; Warfarin Therapeutic range 2.0 to 3.0 or 2.5 to 3.5, depending upon the indications. Lab Interpretation (test code = 17495-4) Abnormal [facility] WITH [id number] 00:09:05* Test Item Value Reference Range Interpretation Comme nts WBC (test code = 6690-2) 9.64 See_Comment [Automated messa ge] The system which generated this result transmitted reference range: 4.30 - 11.10 10*3/?L. The reference range was not used to interpret this result as normal/abnormal. RBC (test code = 789-8) 4.36 See_Comment [Automated messa ge] The system which generated this result transmitted reference range: 3.93 - 5.25 10*6/?L. The reference range was not used to interpret this result as normal/abnormal. HGB (test code = 718-7) 12.3 g/dL 11.6-15.0 HCT (test code = 4544-3) 37.8 % 35.7-45.2 MCV (test code = 787-2) 86.7 fL 80.6-95.5 MCH (test code = 785-6) 28.2 pg 25.9-32.8 MCHC (test code = 786-4) 32.5 g/dL 31.6-35.1 RDW-SD (test code = 08407-5) 42.0 fL 39.0-49.9 RDW-CV (test code = 788-0) 13.3 % 12.0-15.5 PLT (test code = 777-3) 364 See_Comment H [Automated messa ge] The system which generated this result transmitted reference range: 166 - 358 10*3/?L. The reference range was not used to interpret this result as normal/abnormal. MPV (test code = 70021-8) 10.0 fL 9.5-12.9 NRBC/100 WBC (test code = 8226228108) 0.0 See_Comment [Automated me ssage] The system which generated this result transmitted reference range: 0.0 - 10.0 /100 WBCs. The reference range was not used to interpret this result as normal/abnormal. NRBC x10^3 (test code = 1456928686) See_Comment [Automated messa ge] The system which generated this result transmitted reference range: 10*3/?L. The reference range was not used to interpret this result as normal/abnormal. GRAN MAT (NEUT) % (test code = 770-8) 72.5 % IMM GRAN % (test code = 1031090476) 0.30 % LYMPH % (test code = 736-9) 19.0 % MONO % (test code = 5905-5) 6.6 % EOS % (test code = 713-8) 1.2 % BASO % (test code = 706-2) 0.4 % GRAN MAT x10^3(ANC) (test code = 2188635508) 6.98 10*3/uL 1.88-7.09 IMM GRAN x10^3 (test code = 7042774362) 0.03 10*3/uL 0.00-0.06 LYMPH x10^3 (test code = 731-0) 1.83 10*3/uL 1.32-3.29 MONO x10^3 (test code = 742-7) 0.64 10*3/uL 0.33-0.92 EOS x10^3 (test code = 711-2) 0.12 10*3/uL 0.03-0.39 BASO x10^3 (test code = 704-7) 0.04 10*3/uL 0.01-0.07 Lab Interpretation (test code = 98767-3) Abnormal [facility] WITH [id number] 00:09:05* Test Item Value Reference Range Interpretation Comme nts WBC (test code = 6690-2) 9.64 See_Comment [Automated messa ge] The system which generated this result transmitted reference range: 4.30 - 11.10 10*3/?L. The reference range was not used to interpret this result as normal/abnormal. RBC (test code = 789-8) 4.36 See_Comment [Automated messa ge] The system which generated this result transmitted reference range: 3.93 - 5.25 10*6/?L. The reference range was not used to interpret this result as normal/abnormal. HGB (test code = 718-7) 12.3 g/dL 11.6-15.0 HCT (test code = 4544-3) 37.8 % 35.7-45.2 MCV (test code = 787-2) 86.7 fL 80.6-95.5 MCH (test code = 785-6) 28.2 pg 25.9-32.8 MCHC (test code = 786-4) 32.5 g/dL 31.6-35.1 RDW-SD (test code = 27460-2) 42.0 fL 39.0-49.9 RDW-CV (test code = 788-0) 13.3 % 12.0-15.5 PLT (test code = 777-3) 364 See_Comment H [Automated Tesarisa ge] The system which generated this result transmitted reference range: 166 - 358 10*3/?L. The reference range was not used to interpret this result as normal/abnormal. MPV (test code = 46072-8) 10.0 fL 9.5-12.9 NRBC/100 WBC (test code = 9463588370) 0.0 See_Comment [Automated Telly ssage] The system which generated this result transmitted reference range: 0.0 - 10.0 /100 WBCs. The reference range was not used to interpret this result as normal/abnormal. NRBC x10^3 (test code = 2898729325) See_Comment [Automated Tesarisa ge] The system which generated this result transmitted reference range: 10*3/?L. The reference range was not used to interpret this result as normal/abnormal. GRAN MAT (NEUT) % (test code = 770-8) 72.5 % IMM GRAN % (test code = 5942641226) 0.30 % LYMPH % (test code = 736-9) 19.0 % MONO % (test code = 5905-5) 6.6 % EOS % (test code = 713-8) 1.2 % BASO % (test code = 706-2) 0.4 % GRAN MAT x10^3(ANC) (test code = 0920083153) 6.98 10*3/uL 1.88-7.09 IMM GRAN x10^3 (test code = 2225231858) 0.03 10*3/uL 0.00-0.06 LYMPH x10^3 (test code = 731-0) 1.83 10*3/uL 1.32-3.29 MONO x10^3 (test code = 742-7) 0.64 10*3/uL 0.33-0.92 EOS x10^3 (test code = 711-2) 0.12 10*3/uL 0.03-0.39 BASO x10^3 (test code = 704-7) 0.04 10*3/uL 0.01-0.07 Lab Interpretation (test code = 22841-8) Abnormal [facility] [id number] 04:43:00* Test Item Value Reference Range Interpretation Comme nts POCT PREG (test code = 1605) positive On board controls acceptable with C Line (test code = 3574) positive POCT PREG LOT # (test code = 3575) [id number] POCT PREG TEST DATE ( test code = 3576) 07/21/2023 Lab Interpretation (test cod e = 52632-7) Normal [facility] URINALYSIS W SPECIFIC [id number] 21:19:00* Test Item Value Reference Range Interpretation Comme nts POCT U SP GRAV (test code = 3255) . 1.005-1.025 POCT PH U (test code = 3254) 6 mg/dl 5-8 POCT U LEUK EST (test code = 3263) Neg Negative - Negative POCT U NIT (test code = 3262) Neg Negative - Negati ve POCT U PROT (test code = 3259) Trace Negative - Negat debra POCT U GLU (test code = 3256) Neg Negative - Negati ve POCT U KETONE (test code = 3258) None Negative - Neg ative POCT U UROBILI (test code = 3260) . 0.2-1 POCT U BILI (test code = 3261) . Negative - Negat debra POCT U BLD (test code = 3257) Trace Negative - Negati ve POCT U COLOR (test code = 3266) POCT U APPEAR (test code = 3267) [facility] URINALYSIS W SPECIFIC [id number] 21:19:00* Test Item Value Reference Range Interpretation Comme nts POCT U SP GRAV (test code = 3255) . 1.005-1.025 POCT PH U (test code = 3254) 6 mg/dl 5-8 POCT U LEUK EST (test code = 3263) Neg Negative - Negative POCT U NIT (test code = 3262) Neg Negative - Negati ve POCT U PROT (test code = 3259) Trace Negative - Negat debra POCT U GLU (test code = 3256) Neg Negative - Negati ve POCT U KETONE (test code = 3258) None Negative - Neg ative POCT U UROBILI (test code = 3260) . 0.2-1 POCT U BILI (test code = 3261) . Negative - Negat debra POCT U BLD (test code = 3257) Trace Negative - Negati ve POCT U COLOR (test code = 3266) POCT U APPEAR (test code = 3267) [facility] [id number] 21:40:00* Test Item Value Reference Range Interpretation Comme nts POCT PREG (test code = 1605) Positive On board controls acceptable with C Line (test code = 3574) Yes POCT PREG LOT # (test code = 3575) POCT PREG TEST DATE ( test code = 3576) [facility] URINALYSIS W/O SPECIFIC [id number] 21:34:00* Test Item Value Reference Range Interpretation Comme nts POCT PH U (test code = 3254) 8 mg/dl 5-8 POCT U LEUK EST (test code = 3263) negative Negative - Negative POCT U NIT (test code = 3262) negative Negative - Negati ve POCT U PROT (test code = 3259) 1+ Negative - Negat debra POCT U GLU (test code = 3256) negative Negative - Negati ve POCT U KETONE (test code = 3258) negative Negative - Neg ative POCT U BLD (test code = 3257) negative Negative - Negati ve [facility] [id number] 08:22:00* Test Item Value Reference Range Interpretation Comme nts POCT PREG (test code = 1605) neg On board controls acceptable with C Line (test code = 3574) yes POCT PREG LOT # (test code = 3575) [id number] POCT PREG TEST DATE ( test code = 3576) 09/19/2023 Lab Interpretation (test cod e = 50951-4) [facility] [id number] 06:28:56 * Test Item Value Reference Range Interpretation Comme nts TSH (test code = 9453089674) See_Comment Biotin has been reported to cause a negative bias, interpret results relative to patient's use of biotin. [Automated message] The system which generated this result transmitted reference range: 0.45 - 4.70 mIU/L. The reference range was not used to interpret this result as normal/abnormal. Lab Interpretation (test code = 85986-4) Normal [facility] [id number] 06:28:56 * Test Item Value Reference Range Interpretation Comme nts TSH (test code = 5400956987) See_Comment Biotin has been reported to cause a negative bias, interpret results relative to patient's use of biotin. [Automated message] The system which generated this result transmitted reference range: 0.45 - 4.70 mIU/L. The reference range was not used to interpret this result as normal/abnormal. Lab Interpretation (test code = 91768-1) Normal [facility] [id number] 19:31:00* Test Item Value Reference Range Interpretation Comme nts POCT PREG (test code = 1605) Negative On board controls acceptable with C Line (test code = 3574) Yes POCT PREG LOT # (test code = 3575) POCT PREG TEST DATE ( test code = 3576) 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 HistoryEduar Raya is a 27 year old female , with a hx of 4 previous c-sections and cholecystectomy and D&Cs presents to ER with worsening lower abdominal pain.She is scheduled for a D&C for SAB with possible molar on 01/11She denies vaginal bleeding, Chest pain or SOBWork [place] in [place] showed normal TSH and CXRMost recent scan on 01/04 showed GS, possible blood clot and snow timur like appearance in the BRYCE.Hc,846.00 (01/01)--> 36,031.00(01/08) A positiveSexual History:Social History Substance and Sexual Activity Sexual Activity Yes Partners: Male control/protection: None Comment: Last intercourse: 11/19/2022 Current Medications:Current Facility-Administered Medications Medication Dose Route Frequency Last Rate Last Admin doxycycline hyclate (Vibramycin) capsule 100 mg 100 mg Oral O.R. HOLDING ONCE NaCl 0.9% (NS) IV infusion 1,000 mL 1,000 mL Intravenous CONTINUOUS 150 mL/hr at 01/08/23 1414 1,000 mL at 01/08/23 1414 Current Outpatient Medications Medication Sig Dispense Refill ondansetron 4 mg disintegrating tablet Take 1 tablet by mouth every 12 (twelve) hours as needed for Nausea and Vomiting (N/V). 6 tablet 0 doxylamine-pyridoxine, vit B6, (DICLEGIS) 10-10 mg per tablet Day 1: Take 2 tablet before bed. Day 2: If still having nausea and vomiting 2 tablet bed. Day 3 take 1 tablet in am and 2 tablet at bed 200 tablet 3 vitamin w/FA tablet Take 1 tablet by mouth in the morning. 90 tablet 2 Home Medications:(Not in a hospital admission)Allergies: IodineHistory: Past Medical History: Diagnosis Date Anemia 2018 ongoing, taking vitamins Anxiety 2001 Resolved, not on meds Arthritis 02/19/2017 Asthma ongoing, 04/2020 in hospital for asthma attack Depression 2001 Resolved, not on meds Dysmenorrhea 04/18/2022 Esophageal reflux History of anemia 08/11/2022 Hypertension 2018 gestational, resolved. Irregular menstrual cycle 04/03/2022 Ovarian cyst, left 10/22/2022 PTSD (post-traumatic stress disorder) Transfusion history 2011 After First Baby Family History Problem Relation Age of Onset Diabetes Mother Depression Mother Hypertension Mother Hypertension Father Hypertension Maternal Aunt Hypertension Maternal Uncle Diabetes Maternal Grandmother Diabetes Maternal Grandfather Diabetes Paternal Grandmother Diabetes Paternal Grandfather Arthritis NoFHx Asthma NoFHx defects NoFHx Breast Cancer NoFHx Colon Cancer NoFHx Ovarian Cancer NoFHx Uterine Cancer NoFHx Cancer NoFHx Genetic NoFHx Heart NoFHx High cholesterol NoFHx Mental retardation NoFHx Neurological NoFHx Osteoporosis NoFHx Psychiatry NoFHx Other - see comments NoFHx Family Status Relation Name Status Mo Alive Fa Alive MAunt (Not Specified) MUnc (Not Specified) MGMo (Not Specified) MGFa (Not Specified) PGMo (Not Specified) PGFa (Not Specified) NoFHx (Not Specified) Past Surgical History: Procedure Laterality Date SECTION Dr Aragon SECTION N/A 09/24/2016 Surgeon: Joe Martino MD; Location: [facility] Labor and Delivery OR Location SECTION N/A 03/08/2018 Surgeon: Gloria Atkins; Location: Labor and Delivery - [place] CHOLECYSTECTOMY 2021 DILATION AND CURETTAGE (SHX) 2011 Both (Dr Martino) DILATION AND CURETTAGE (SHX) N/A 09/27/2022 Surgeon: Gillian Reno MD; Location: 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 Drug use: No Sexual activity: Yes Partners: Male control/protection: None Comment: Last intercourse: 11/19/2022 Other Topics Concern Seat Belt Yes Comment: Sometimes Social History Narrative Denies domestic or physical violence within the home Adventism Preference: None Patient lives with her children, feels safe at home. Denies cats. Surgical History: Past Surgical History: Procedure Laterality Date SECTION Dr Aragon SECTION N/A 09/24/2016 Surgeon: Joe Martino MD; Location: [facility] Labor and Delivery OR Location SECTION N/A 03/08/2018 Surgeon: Gloria Atkins; Location: Labor and Delivery - [place] CHOLECYSTECTOMY 2021 DILATION AND CURETTAGE (SHX) 2010 Both (Dr Martino) DILATION AND CURETTAGE (SHX) N/A 09/27/2022 Surgeon: Gillian Reno MD; Location: [facility] OR LOCATION TONSILLECTOMY WITH ADENOIDECTOMY Age 2 OB History: OB History Para Term AB Living 9 4 4 4 4 SAB IAB Ectopic Multiple Live Births 4 4 # Outcome Date GA Lbr Man/2nd Weight Sex Delivery Anes PTL Lv 9 Current 8 Term 03/08/18 39w1d 3374 g F SEC FORREST 7 SAB 04/21/17 6 Term 09/24/16 40w0d 3175 g F SEC FORREST 5 Term 05/16/14 39w0d 3572 g F SEC Spinal Y FORREST 4 Term 01/01/12 39w0d 3685 g F SEC EPI, Spinal Y FORREST Complications: Other Excessive Bleeding 3 SAB 05/21/11 2 SAB 07/22/10 1 SAB Obstetric Comments Had D&C with 2 Miscarriages (Dr Aragon) REVIEW OF SYSTEMSGeneral: negativeConstitutional: negativeEyes: negativeENT/Mouth: negativeCardiovascular: negativeRespiratory: negativeGastrointestinal:negativeGenitouri nary: negativeMusculoskeletal: negativeSkin/breast: negativeNeurological: negativePsychiatric: negativeEndocrine: negativeHemat/Lymph: negativeAllergic/Immuno:nonePhysical Exam:BP 112/65 | Pulse 107 | Temp 36.7 ?C (98.1 ?F) (Oral) | Resp 18 | Ht 1.702 m (5' 7") | Wt 90.7 kg (200 lb) | LMP 10/26/2022 (Exact Date) | SpO2 100% | BMI 31.32 kg/m? Constitutional: alert,Respiratory: No labored breathingCardiovascular: RRRGastrointestinal: Abdomen soft, tender lower abdomenNeurological/Psychiatric: Alert and oriented times three, normal mood and affectGynecologic: DeferredLabs: CBCWBC (10*3/?L) Date Value 01/08/2023 6.04 RBC (10*6/?L) Date Value 01/08/2023 3.84 (L) PLT (10*3/?L) Date Value 01/08/2023 273 HGB (g/dL) Date Value 01/08/2023 10.9 (L) HCT (%) Date Value 01/08/2023 33.0 (L) ALT(SGPT) (U/L) Date Value 05/27/2017 36 ALTv (U/L) Date Value 01/08/2023 18 AST(SGOT) (U/L) Date Value 01/08/2023 23 CREATININE (mg/dL) Date Value 01/08/2023 0.49 (L) No results found for: "LDHU"No results found for: "URICACID"PROTEIN (no units) Date Value 01/08/2023 Negative PH (no units) Date Value 01/08/2023 7.0 GLU U QUAL (no units) Date Value 01/08/2023 Normal KETONES (no units) Date Value 01/08/2023 Negative BILIRUBIN (no units) Date Value 01/08/2023 Negative No results found for: "UBLOOD"No results found for: "UUROBILIN"LEUK GABBY (no units) Date Value 01/08/2023 25/uL (A) NITRITE (no units) Date Value 01/08/2023 Negative SP GRAVITY (no units) Date Value 01/08/2023 1.015 No results found for: "T4" TSH (mIU/L) Date Value 01/04/2023 1.52 Assessment/Plan:Eduar Raya is a 27 year old female, with a failed but can't rule out molar presenting with abdominal painHcg is trending downPatient is stable Will proceed with D&CPatient last eat at 10am, will keep NPO and proceed 8 hours later as per anesthesia Procedure reviewed with patient and consent signedShe already had postop appointment/beta clinic [place] in [place] on [place]/18. [place]ouraged [place] [address]-0Atdltdf xhdpQT0912-46-33D75:29:00Consult noteTXT1.2.840.658421.1.13.104.2.7.2.44112 9|[id number] for patient [id number] CDULKWKXCECGHYTM3644-42-11F99:29:001.2.840 .940733.1.72.3.15|1.2.840.509062.1.13.104. 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 2.7.2.727879_[id number] [facility] Notes Date/Time Note Provider Source 2023-08-13 17:10:18 +oiL7GvctFt/LFmCTDsViLcOGL38UcduehbG8 do9/Q2yeUUD3XaqVFEsGS85N5k69275-01-02 T17:10:18 PT D/C home. GCS15, VS stable. Given D/C paperwork. Pt ambulatory at time of discharge. Pt educated on med usage, follow up care, s/s worsening condition, need for hydration. Pt verbalized understanding.[place] [address]-9Tndzxhtev department EginEE1598-59-94P62:10:38Emergency department NoteTXT1.2.840.965097.1.13.104.2.7.2. 011606|[id number] for patient hbws56365-6UizcODRQDVVDUWZHiuoxwpco C-CDA narrative [id number] E Linkes RN[address] Rv[id number] ZONHJSYBYEQNMCBYRQPNJ4746-38-51C21:10 :381.2.840.943727.1.72.3.15|1.2.840.1 89396.1.13.104.2.7.2.727879_[id number] [address] [facility] 2023-08-13 14:33:12 f4nBxSVeEJsD8KcjXBW5ogPUnnLfLi5EkcE6Y /K3GaCQYsYQmXokOQS8wwQCYRU+2023-08-13 T14:33:12 Patient reports vaginal bleeding that started last night. Patient is and was scheduled for first OB appointment today. Told to come straight to the ED.G10 P 4 G6Vxbwmaulcwidwr signed by Adele Melendez RN at 08/13/2023 2:34 PM OQF50696-9Locheykqn department Triage wpqsZR3182-14-24V29:34:16Emergency department Triage noteTXT1.2.840.235688.1.13.104.2.7.2. 568581|[id number] for patient xjpl58306-4Ankuipoih department NoteLNNARRATIVEFormatted C-CDA narrative [id number] M Hayes RN[address] Iw[id number] HCOQPILQHWGGBYBLASBMF6578-72-81K42:34 :161.2.840.468840.1.72.3.15|1.2.840.1 84354.1.13.104.2.7.2.727879_[id number] [address] [facility] 2023-08-13 14:15:00 HHdrXPMlQMaYWkf7lbDyMowG4kvZnxHhcwNXb /ygHfb6uIgc4GRQ2ErFqO3/RvQC9224-25-64 T14:15:00 [facility] Emergency Department NotePatient Name: Eduar Finley of : 1995 27 year old femaleTreatment Room: 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 treatment: NoneTravel and Exposure Screening:SymptomsDoes patient have any of these symptoms?: (not recorded)Exposure ScreeningHas patient had contact with someone with a communicable disease in the last month?: (not recorded)Diseases exposed to:: (not recorded)Is Patient ?: (not recorded)Exposure Date: (not recorded)Chief Complaint:Chief ComplaintPatient presents withVaginal BleedingHistory of Present Illness:27 yo F arrived to the ED with complaints of vaginal bleeding- recently discovered she is .Past Medical History/Immunizations:Past Medical History:Diagnosis DateAbnormal uterine bleedingAnemia 2018ongoing, taking vitaminsAnxiety 2002Resolved, not on medsArthritis 02/19/2017Asthmaongoing, 04/2020 in hospital for asthma attackDepression 2002Resolved, not on medsDysmenorrhea 04/18/2022Esophageal refluxHistory of anemia 08/11/2022HSV-1 (herpes simplex virus 1) infectionHypertension 2018gestational, resolved.MELISSA (iron deficiency anemia)seeing ob/gynIrregular menstrual cycle 2Observed seizure-like activity 04/26/2023OSA (obstructive sleep apnea)Ovarian cyst, left 3Positive LAST (antinuclear antibody)PTSD (post-traumatic stress disorder)Transfusion history 2012After First BabyTetanus received in last 5 years: YesAllergies:AllergiesAllergen ReactionsIodine Anaphylaxis and SwellingPast Social History:Tobacco UseNever smoked or used smokeless tobacco.Passive Exposure: NeverAlcohol UseNot Currently.Comments: on occassion, liquor and beer on occassions.Drug UseNo.Sexual ActivitySexually active; Partners: Male; Control/Protection: None.Comments: Last intercourse: 11/19/2022ast Surgical History:Past Surgical History:Procedure Laterality DateCESAREAN SECTION Dr CookeCESAREAN SECTION N/A 09/24/2016Surgeon: Joe Martino MD; Location: [facility] Labor and Delivery OR LocationCESAREAN SECTION N/A 03/08/2018Surgeon: Gloria Atkins; Location: Labor and Delivery - [facility] AnnexCHOLECYSTECTOMY IAGNOSTIC LAPAROSCOPY N/A 01/08/2023Surgeon: Mariajose Ramsey MD; Location: [facility] OR LOCATIONDILATION AND CURETTAGE (SHX) 2011Both (Dr Martino)DILATION AND CURETTAGE (SHX) N/A 09/27/2022Surgeon: Gillian Reno MD; Location: [facility] OR LOCATIONDILATION AND CURETTAGE (SHX) N/A 01/08/2023Surgeon: Mariajose Ramsey MD; Location: [facility] OR LOCATIONHYSTEROSCOPY N/A 01/08/2023Surgeon: Mariajose Ramsey MD; Location[facility] WITH DILATATION AND CURETTAGE (SHX) N/A 04/26/2023Surgeon: Bandar Baca MD; Location: [facility] OR LOCATIONLAPAROSCOPIC LYSIS OF ADHESIONS (SHX) N/A 01/08/2023Surgeon: Mariajose Ramsey MD; Location: [facility] OR [facility] CAMPUSLAPAROSCOPIC OVARIAN CYST ASPIRATION Left 01/08/2023Surgeon: Mariajose Ramsey MD; Location: [facility] OR [facility] CAMPUSTONSILLECTOMY WITH ADENOIDECTOMYAge 2Review of Systems:Review of SystemsConstitutional: Negative. Negative for activity change, appetite change, chills and fever.HENT: Negative. Negative for ear discharge and hearing loss.Eyes: Negative. Negative for photophobia, pain and redness.Respiratory: Negative. Negative for cough, choking, chest tightness and shortness of breath.Breasts: Negative.Cardiovascular: Negative. Negative for chest pain.Gastrointestinal: Negative. Negative for abdominal pain.Genitourinary: Positive for vaginal bleeding. Negative for difficulty urinating and dyspareunia.Musculoskeletal: Negative. Negative for neck pain.Neurological: Negative for dizziness, syncope, weakness, numbness and headaches.Psychiatric/Behavioral: Negative. Negative for confusion.All other systems reviewed and are negative.Physical Exam:ED Triage Vitals [08/13/23 1434]Weight 96.6 kg (213 lb)Actual or estimated Estimated by patient/family reportHeight 1.702 m (5' 7")BP 130/87Pulse 83Resp 22Temp 36.9 ?C (98.4 ?F)Temp source OralSpO2 100 %Measured on Room airPhysical ExamVitals and nursing note reviewed.Constitutional:Appearance: Normal appearance.HENT:Head: Normocephalic and atraumatic.Nose: Nose normal.Eyes:Extraocular Movements: Extraocular movements intact.Conjunctiva/sclera: Conjunctivae normal.Pupils: Pupils are equal, round, and reactive to light.Cardiovascular:Rate and Rhythm: Normal rate and regular rhythm.Pulses: Normal pulses.Heart sounds: Normal heart sounds.Pulmonary:Effort: Pulmonary effort is normal.Breath sounds: Normal breath sounds.Abdominal:General: Abdomen is flat.Palpations: Abdomen is soft.Musculoskeletal:General: Normal range of motion.Cervical back: Normal range of motion.Skin:General: Skin is warm.Capillary Refill: Capillary refill takes less than 2 seconds.Neurological:General: No focal deficit present.Mental Status: She is alert and oriented to person, place, and time.Radiology:No orders to displayLab Results:Lab ResultsCBC WITH DIFF - AbnormalResult Value Ref RangeWBC 5.67 4.30 - 11.10 10*3/?LRBC 4.56 3.93 - 5.25 10*6/?LHGB 11.4 (*) 11.6 - 15.0 g/dLHCT 37.1 35.7 - 45.2 %MCV 81.4 80.6 - 95.5 fLMCH 25.0 (*) 25.9 - 32.8 pgMCHC 30.7 (*) 31.6 - 35.1 g/dLRDW-SD 49.0 39.0 - 49.9 fLRDW-CV 16.7 (*) 12.0 - 15.5 %PLT 416 (*) 166 - 358 10*3/?LMPV 10.0 9.5 - 12.9 fLNRBC/100 WBC 0.0 0.0 - 10.0 /100 WBCsNRBC x10^3 <0.01 10*3/?LGRAN MAT (NEUT) % 62.4 %IMM GRAN % 0.20 %LYMPH % 27.3 %MONO % 8.1 %EOS % 1.1 %BASO % 0.9 %GRAN MAT x10^3(ANC) 3.54 1.88 - 7.09 10*3/uLIMM GRAN x10^3 <0.03 0.00 - 0.06 10*3/uLLYMPH x10^3 1.55 1.32 - 3.29 10*3/uLMONO x10^3 0.46 0.33 - 0.92 10*3/uLEOS x10^3 0.06 0.03 - 0.39 10*3/uLBASO x10^3 0.05 0.01 - 0.07 10*3/uLCOMP. METABOLIC PANEL (40402)NA 139 135 - 145 mmol/LK 4.0 3.5 - 5.0 mmol/LCL 108 98 - 108 mmol/LCO2 TOTAL 25 23 - 31 mmol/LAGAP 6 2 - 16BUN 11 7 - 23 mg/dLGLUCOSE 93 70 - 110 mg/dLCREATININE 0.61 0.50 - 1.04 mg/dLTOTAL BILI 0.5 0.1 - 1.1 mg/dLCALCIUM 8.7 8.6 - 10.6 mg/Shanice PROTEIN 8.1 6.3 - 8.2 g/dLALBUMIN 4.1 3.5 - 5.0 g/dLALK PHOS 71 34 - 122 U/LALTv 18 5 - 35 U/LAST(SGOT) 28 13 - 40 U/LeGFR 124.3 mL/min/1.76c4FMQI AND SCREENABO & RH A PositiveIAT NegativeTOTAL BETA HCG ASSAYBETA HCG 7.37 Non- female and male patients: <5 mIU/mLURINALYSISEKG:If EKG completed, see Procedure Note.Orders and Treatments:Orders Placed This EncounterProceduresCBC WITH DIFFCOMP. METABOLIC PANEL (48402)URINALYSISType and Screen - ONCE STATTOTAL BETA HCG ASSAYNo orders of the defined types were placed in this encounter.First Provider Eval:ED EventsDate/Time Event User Yoqoyajz53/23/24 1435 Medical Screening Begins BOGDAN GABRIEL --08/13/23 1435 First Provider Evaluation BOGDAN GABRIEL --ED COURSEDiagnosis/Impression as of 08/13/23 1630Vaginal bleedingThreatened abortionVaginal bleeding affecting early pregnancyProcedures:ProceduresMDM:Med ical Decision MakingThis patient presents with vaginal bleeding in the first trimester. DDX includes ectopic, IUP, threatened/inevitable , along with completed . Patient is HDS and without a history of coagulopathy or infectious symptoms. Doubt alternate acute emergent pathology.Plan: [facility], +/- basic labs, type and screen, TVUS, [facility] 7-no indication for transvaginal ultrasound at this time. Patient instructed to follow-up with 48 hours for repeat beta-hCG and possible ultrasound.Problems Addressed:Threatened : acute illness or injury with systemic symptomsVaginal bleeding: acute illness or injury with systemic symptomsVaginal bleeding affecting early : acute illness or injury with systemic symptomsAmount and/or Complexity of Data ReviewedLabs: ordered.Radiology: ordered.Flowsheet Documentation:Scoring Tools:No data recordedDisposition/Condition:ED DispositionED DispositionDisch - HomeConditionStableComment--Discharge Medications:Patient's MedicationsSTART taking these medicationsNo medications on fileCONTINUE taking these medications which have NOT CHANGEDALBUTEROL 90 MCG/ACTUATION INHALER Inhale 2 Puffs every 6 (six) hours as needed for Wheezing or Shortness of Breath.AMITRIPTYLINE 25 MG TABLET Take 2 tablets by mouth at bedtime.AZELASTINE 137 MCG (0.1 %) NASAL SPRAY USE 1 SPRAY IN EACH NOSTRIL IN THE MORNING AND 1 SPRAY IN THE EVENING DIRECTEDBENZONATATE 100 MG CAPSULE Take 2 capsules by mouth every 8 (eight) hours as needed for Cough.BROMPHENIRAMINE-PSEUDOEPHEDRINE -DM (BROMFED DM) 2-30-10 MG/5 ML SYRUP Take 5 mL by mouth 4 (four) times daily as needed for Cold symptoms.FERROUS SULFATE 325 MG (65 MG IRON) TABLET Take 1 tablet by mouth in the morning.GABAPENTIN 300 MG CAPSULE Take 1 capsule by mouth 3 (three) times daily as needed (pain).HYDROXYCHLOROQUINE (PLAQUENIL) 200 MG TABLET Take 1.5 tablets by mouth in the morning.IBUPROFEN 600 MG TABLET Take 1 tablet by mouth every 6 (six) hours as needed for Pain (scale 1-3).MAGNESIUM OXIDE 400 MG (241.3 MG MAGNESIUM) TABLET Take 1 tablet by mouth in the morning.METHOCARBAMOL 750 MG TABLET Take 1 tablet by mouth 3 (three) times daily as needed for Other (muscle spasms).NORELGESTROMIN-ETHINYL ESTRADIOL (XULANE) 150-35 MCG/24 HR PATCH Apply 1 Patch to skin weekly.ONDANSETRON 4 MG DISINTEGRATING TABLET Take 1 tablet by mouth every 8 (eight) hours as needed for Nausea and Vomiting (N/V).OZEMPIC 0.25 MG OR 0.5 MG (2 MG/3 ML) PNIJ INJECT 0.5 MG SUBCUTANEOUSLY WEEKLY.PHENTERMINE 37.5 MG TABLET Take 1 tablet by mouth in the morning. VITAMIN W/FA TABLET Take 1 tablet by mouth in the morning.SUMATRIPTAN (IMITREX) 50 MG TABLET Take 1 tablet by mouth as needed for Migraine.TOPIRAMATE 25 MG TABLET Take 1 tablet by mouth in the morning and 1 tablet in the evening.START taking Modified Medications as PrescribedNo medications on fileSTOP taking these medicationsNo medications on fileFollow-up:Contact information for follow-upThais Marin PASpecialty: PA-PHYSICIAN DIRECTOR OF CONVENTION SERVICES, FM-FAMILY MEDICINERelationship: PCP - [facility] AND ZGIOQHA[address] [facility] [id number]: [phone] signed by:Bogdan Gabriel DO08/13/23 1630 55587-1Iwwmzawoo Emergency department TbjwOC2184-21-56N20:30:41Physician Emergency department NoteTXT1.2.840.866827.1.13.104.2.7.2. 435433|[id number] for patient awdx21570-5Hwitezmsk department NoteLNNARRATIVEFormatted C-CDA narrative text[address] Zf[id number] PRWJDGSESXRJJBKMBJAPW9553-55-73N35:30 :411.2.840.017046.1.72.3.15|1.2.840.1 86351.1.13.104.2.7.2.727879_[id number] [address] [place] [address] 2023-08-13 11:08:01 c9LBIfy4kTBngdJiWBrwa1yFz/GaL1uZBspLq 8n+5OKdvX2B1Ab4vZbW5KXO4jUH2888-97-24 T11:08:01 Called pt regarding mychart message. Pt reports heavy vaginal bleeding since midnight. Denies soaking more than 1 pad an hour. Pt reports severe abdominal pain 01/28. No relief with tylenol. Pt denies fever. Pt reports body aches and chills. Advised will need to be evaluated by ER. Strict er warnings given. Pt verbalized understanding.Deann Grover RN 08/13/23 11:09 AM 31523-0Tgviqsyeu encounter FznnLO0071-43-23A72:09:43Telephone encounter NoteTXT1.2.840.354476.1.13.104.2.7.2. 967889|[id number] for patient tlzs13010-2KlbhLOOUARIEMMHBuhxbjazg C-CDA narrative lwoj645732268Hwpoykzz Hernandez RN[address] PxlmSmrwxjpzqSsuhldrutTQXD3028480930Y BHDBLWZFKYLKBKZCOUMGR3485-85-38G61:09 :431.2.840.162921.1.72.3.15|1.2.840.1 55652.1.13.104.2.7.2.727879_[id number] [address] [facility] 2023-08-11 13:33:24 DFrMRGtMYy4o+ib53hSMGyqzxA+QN6sWKaQTJ m8vbWGVOK/P5Nk0nEPyumsas+cz5988-49-86 T13:33:24 Called and spoke with pt and advised per Dr. Kirk:"Ok to continue on Imitrex as instructed. ( Max 2 /day, 9/month)"Eduar verbalized understanding. 68239-0Xktdukthf encounter RfekQD1701-39-00Q92:34:48Telephone encounter NoteTXT1.2.840.205790.1.13.104.2.7.2. 363391|[id number] for patient qfzb64114-8IkghTOSBIECYYMUKmpfbtnse C-CDA narrative pipr068976231Yeirqdt Gaytan [id number] SQGXHQRODYUUANLCXHSIR9000-74-94I89:34 :481.2.840.121732.1.72.3.15|1.2.840.1 44313.1.13.104.2.7.2.727879_[id number] [address] [facility] 2023-08-10 14:50:30 Ie0N9XhQKziDAUza2Ks5rqx5yw0AKT76V4jtb AwPHdR1AFOMZ8BR94eqU73NOTF56919-51-72 T14:50:30 Ok to continue on Imitrex as instructed. ( Max 2 /day, 9/month) 47780-7Xsdurpdzy encounter BbpvXS9472-20-17E32:50:58Telephone encounter NoteTXT1.2.840.794994.1.13.104.2.7.2. 030971|9718095757WSKwsiqecun for patient awjp28743-6VcilLXPDTXGKZIYEhbgbuxte C-CDA narrative textPN-NEUROLOGY STAFFPN-NEUROLOGY STAFF[address] [id number] KCLAAGIJCQSOWTZUWPCWU6712-69-05B91:50 :581.2.840.473248.1.72.3.15|1.2.840.1 42891.1.13.104.2.7.2.727879_[id number] 6 PN-NEUROLOGY STAFF [facility] 2023-08-10 08:31:13 +8pk6TwVfTzjIlbus8kx8Kb146K+GrEBR4JS0 zgLKfusfeU3RoIHG58BjX7MeMmR8156-13-81 T08:31:13 Called patient, no answer, unable to leave a VM. 38728-1Gpsgeavht encounter JiaoMB3211-01-05Z39:38:39Telephone encounter NoteTXT1.2.840.539968.1.13.104.2.7.2. 634870|2658110191XPMpduvvxej for patient roge41414-1WzidNQVKERSXPSSMbcmnpeoq C-CDA narrative waym179800541Xdkquup Gaytan RN[address] StreetNslkNwqaiworyOozjnhkgeAMAR8620172412W WDCQBUTDDMTAVXDMJCWBE0424-71-84E13:38 :391.2.840.832793.1.72.3.15|1.2.840.1 36740.1.13.104.2.7.2.727879_[id number] [address] [facility] 2023-08-09 09:19:43 gUQshavLlEhqyHMhdstRGf/5DTfyi6MfpoZU9 AKgoGCv1u5CEq8A8Mml36H+wtuK1762-30-57 T09:19:43 Eduar Raya is a 27 year old femalePt calling she recently tested positve for via home test pt will see OB doctor soon. Pt asking can she take SUMAtriptan (IMITREX) 50 mg tablet. Please advise. 94457-4Rihasnvdj encounter HpckQI4056-45-29H35:21:57Telephone encounter NoteTXT1.2.840.369647.1.13.104.2.7.2. 325839|1506093419ZYUypbytrpl for patient tskt51963-3XmjxKJYBOOPLSBIFwhbnghke C-CDA narrative fueu647150994Vfaki Element[address] [id number] WPAGSKJSYWMWWCPZSBKGF2352-56-65A84:21 :571.2.840.138497.1.72.3.15|1.2.840.1 98251.1.13.104.2.7.2.727879_[id number] [address] [facility] 2023-08-03 18:13:00 Gb68KTn5P9xLMn3F9bXxplLfOcZcvu2jTZh0B LMkC9kRNARgzev/3ONVMjY3RzAe0450-98-24 T18:13:00 She should be in therapy Ca Wellington MD, FAAOSBoard Certified Orthopedic SurgerySubspecialty Certified in Hand Surgery.Train Caller, Department of Orthopedic Surgery and Rehabilitation. 64027-8Djquizsed encounter JcxrVS6752-59-93Z76:16:26Telephone encounter NoteTXT1.2.840.886835.1.13.104.2.7.2. 783062|3514098110TXAtdczszik for patient keme24552-4IkfrCNAIMPEPXJEWcdsrvttp C-CDA narrative [id number] GOODQESNNUIJEHDZZGTUR5301-22-84S28:16 :261.2.840.520186.1.72.3.15|1.2.840.1 54259.1.13.104.2.7.2.727879_[id number] [address] [facility] 2023-08-02 14:07:58 JT6BPWjsw1rC0TaoOk5Sqx2T62VGooiuqxnmO JJmMl1O6olvQqyzFtBnGyB9Qaae0574-26-34 T14:07:58 Scheduled an appointment with Bronwyn Wellington MD on 08/25/23 70456-3Notgsovcm encounter GphwCB7868-12-16P12:08:33Telephone encounter NoteTXT1.2.840.265472.1.13.104.2.7.2. 747818|[id number] for patient fbkf20538-0EplzCCZRNJZRPSLTplqluljo C-CDA narrative tqgg907205482Lnfibry N [address] VpbmSbkhjwbbsVfuhotmltIULM9057901299B YADOQRPNAWAILVAGERHQZ0520-37-84T34:08 :331.2.840.576631.1.72.3.15|1.2.840.1 85783.1.13.104.2.7.2.727879_[id number] [address] [facility] 2023-08-02 12:08:20 o9fg4Hfi3P/CzhNMaGNORA9FgI+aZdx9751dm lCd1NckP3zbvS+Bf6nvM7+Ni50L9038-73-05 T12:08:20 Per last encounter documentation, "Jocy Arreola suggested you call and we can have you see Dr. Wellington sooner to discuss possible surgery.If you would like to do this, please call us at [phone] Ji RN, [facility]oped[facility] CenterP: [phone]: [phone] read by Eduar Raya at 11:54 AM on 08/02/2023."Routing to [place] [facility] for assistance with appointment. No nurse triage required. 36736-7Dpzxrwwjq encounter HpfzRI6667-57-77F23:10:02Telephone encounter NoteTXT1.2.840.601531.1.13.104.2.7.2. 876901|3841114245BMCgspsgdzt for patient asqf89114-3EgufNHXPODBDHSAUxuuoxzbr C-CDA narrative tfsm857478238Hewcec Foster RN[address] StreetHbwrNoilldwlqXbtymtkpaSPFH8708228857N JLVHJITFWKGZZMZECFCNS6734-49-40Z86:10 :021.2.840.744609.1.72.3.15|1.2.840.1 63081.1.13.104.2.7.2.727879_[id number] [address] [facility] 2023-08-02 12:02:43 qLC+yLm4K82hYX52vB0yzDH93DVdreuqTKXfu 9VrlXUCyV9+FQPwjAeIHOVHOXeO1280-92-45 T12:02:43 Eduar Raya is a 27 year old femaleGA, Pt returning nurse call about a sooner appointment with Dr. Wellington. Please contact at [phone] (home) 83600-7Jkeyhzavj encounter PtozVD8086-93-47R48:03:55Telephone encounter NoteTXT1.2.840.053485.1.13.104.2.7.2. 563790|3049356673KVTmcnqkjnu for patient tabv29402-8TfyePJOECHUOZKWYpydenaai C-CDA narrative fhmc411344825Hgeqbt R Marsh[address] StreetTgjxAsmudmkxrXipapcowgKDVO0943426564G STWFUMPTFNMYFMVHEIKEX2459-40-85X72:03 :551.2.840.285733.1.72.3.15|1.2.840.1 67309.1.13.104.2.7.2.727879_[id number] [address] [facility] 2023-08-02 10:27:19 kWJGAeVq+UpRM1orwBDpAty5VjXSraogI3K+n LJWGNQDXezK9i4l2DSq2NR9jKna5405-03-01 T10:27:19 Orthopedic Nurse DocumentationLOV: 07/29/23Follow up date: 09/08/[address] FloydocumentationReceived mychart message: "I was wondering if I had the option to just try and have the surgery done on my middle finger to have it placed back to being straight. In the er the day I went in they already tried to break into place. I don t care about the down time or having to start the healing process over to me it feels like it s not healing right. Any little bump or movement in it makes it swell up"Assessment/Diagnosis:Eduar Raya is a 27 year old female with a left MF MP base fracture. She is doing well and healing as expected. She is experiencing stiffness to IF and MF and numbness from the injury. She would benefit from continued conservative management and OT.PLAN- May wean out of splint. OT for ROM, strengthening- FU 6 weeks with XR left MF with Dr. Wellington- Advised patient to contact us with questions or concernsAll Questions/Concerns addressed at the time of this call []Preferred Pharmacy:[id number] - [place] - [phone]: Hdykxnorx: Payor: [employer] - MANAGED MEDICAID / Plan: [employer] ID STAR / Product Type: Medicaid / Recent/Mihai zepeda Schedule Appointments at the time of this encounterRecent VisitsDate Type Provider Dept07/29/23 Office Visit Jocy Michael DNP [facility] Phr245 Office Visit Bronwyn Wellington MD [facility] Flg456 [facility] Sfv2Qvusulw recent visits within past 365 days and meeting all other requirementsFuture AppointmentsDate Type Provider Dept09/08/23 Appointment [facility] Mgt2Kybbgsd future appointments within next 365 days and meeting all other requirements 52872-1Orzjqvcbc encounter GsvsOA0251-85-34E29:47:14Telephone encounter NoteTXT1.2.840.468486.1.13.104.2.7.2. 430133|[id number] for patient mmej61115-0GjfqPQFRUBWTMBEAoswkmggn C-CDA narrative enoo991094247Yrhsnw Foster RNUTMB[address] UbrwFqaandznkSutzbbkqhIFXA5093639408H NXQJPNTUITRAXZQMMAFSK2898-60-25A47:47 :141.2.840.167972.1.72.3.15|1.2.840.1 95936.1.13.104.2.7.2.727879_[id number] [address] [facility] 2023-07-29 15:00:00 OCcLsknAZ3gq2e3kFdiMZx9AchDb49i9o+Ji5 O+9h+9BV1VirjpefhEzpYDIOpdl6385-37-75 T15:00:00 Images from the original note were not included.Venipuncture collection performed by clean technique on the left anticubitus. Total of 1 attempts were made. Slight pressure and a bandage/dressing were applied to the site(s). The patient experienced no complications. The following specimens were processed according to instructions and sent to [facility] laboratories per lab order on 07/29/23:LT BLUE3 SSTRED2 LAVPPTDK GREEN (LiHep)DK GREEN (SodH)GRAYDK BLUE (K2)DK BLUE (S)ACDBlood CultureNIPT/NTDPatient has been identified by and was provided with cup, antiseptic towelette, and clean catch instructions. 1 urine specimen(s) sent.1 UnpreservedUrine CultureAptima tubeOther urine 15629-9Vtfil AxqyTD5011-93-94P76:44:08Nurse NoteTXT1.2.840.548116.1.13.104.2.7.2. 985757|[id number] for patient xpgx28109-0Htibl NoteLNNARRATIVEFormatted C-CDA narrative text[address] EwxiObulaualyCdpmewgbhBLDZ3698407587Q YPJZMFLKUJQMSXURMKZVO0585-40-98C46:44 :081.2.840.019428.1.72.3.15|1.2.840.1 27993.1.13.104.2.7.2.727879_[id number] 0 [facility] 2023-07-26 16:58:22 9uSVysyujm3FM7WCcHtNU8ueazfvLRvicztHj 6m9ipiT9tePb8+pbJi5UIuOw/D33278-40-94 T16:58:22 Images from the original note were not included.New start DMEThe following has been sent to the provider for completion via parachute/FAXOrders pended for [facility] Hospitalhealth DME companyPrescription for CPAPSleep study /data report dated 06-03-2023 10.6Demographics - Face sheetInsurance InformationProgress Notes from office visit prior to sleep study - 66-33-9466Bhixvr up due 31-90 days following initiation of any device. 92770-9Xkdjjfogf encounter QzwoIO9917-53-14P89:04:54Telephone encounter NoteTXT1.2.840.989562.1.13.104.2.7.2. 827686|1691411713KOBoimaovne for patient oojq27281-1EliyOFRTWTHHJVUUnrfwvuzq C-CDA narrative luru756354251Spsjn J Cordell RN[address] MjrtIslbpnnorWbbefseelTQIM7409600254W NKCWAOEMOHGPAXKKVOARS8826-58-69S03:04 :541.2.840.916481.1.72.3.15|1.2.840.1 01753.1.13.104.2.7.2.727879_[id number] [address] [facility] 2023-07-21 08:11:06 TcvKoVkZV45LgEldw1gR/hoB7YyIIt/KG7jXS t9iM0PsADS7ZcSNqvLSx4VrVaJh6498-98-36 T08:11:06 Last Refilled:Disp Refills Start End DAWazelastine 137 mcg (0.1 %) nasal spray 30 mL 0 05/26/2023 -- --Sig: Use 1 Noel in each nostril in the morning and 1 Noel in the evening. 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)Notes:Recent VisitsDate Type Provider Dept107/27/22 Office Visit TaniaThais PA Ang-[facility] Med04/23/23 Office Visit TaniaThais PA Ang-[facility] Med04/07/23 Office Visit TaniaThais PA Ang-Db [facility] Med12/09/22 Office Visit Tawana Jean MarleneJODI David-Rmchp11/12/22 Office Visit Miranda TawanaJUAN Goodrich [facility] InsanepShowing recent visits within past 540 days with a meds authorizing provider and meeting all other requirementsFuture AppointmentsNo visits were found meeting these conditions.Showing future appointments within next 150 days with a meds authorizing provider and meeting all other requirements 45071-2Vxfhoomxq encounter KdvmHH7237-43-92H28:13:09Telephone encounter NoteTXT1.2.840.769761.1.13.104.2.7.2. 435484|[id number] for patient csrh84153-9OrmhPFXCWVNKLGJAjgcvqeit C-CDA narrative ttda287711460Gmgci J Bunte RNUT[address] StreetTXTX7755577555U DEUIJGOWOFSSSFJAYFUTZ8745-12-63R19:13 :091.2.840.558712.1.72.3.15|1.2.840.1 28059.1.13.104.2.7.2.727879_[id number] [address] [facility] 2023-07-02 13:54:11 i8j04Ur0lWlmbUEsd39MdWo3BSk8zYwdCH4XT +eNsnc+tw1m/HtjadWzaWvpIdFP8343-55-92 T13:54:11 Notified the patient of her positive STI results Trichomonas.Notified the patient her medication has been sent to her pharmacy on file.Educated patient she should complete the entire course, advised patient to practice safe sex practices and to remain abstinent for at least 1-2 weeks post treatment.Patient desires to have partner treated.Name of partner:Amara MelchoroDOB:03/28/1993NKDA:Phone number:[phone]: [phone] std pamphlet for partner education. Patient declinedstd pamphlet to be mailed to partner.Advised patient on HIV testing if she has not recently been tested.Pt verbalized understanding.Called patient, notified positive for BV. Educated patient on antibiotics, daily probiotics, and BV prevention measures. Pt verbalized understanding.Deann Grover RN 07/02/23 1:55 PM 75164-0Ccknwcygs encounter KrruHN1345-90-82S65:58:43Telephone encounter NoteTXT1.2.840.889546.1.13.104.2.7.2. 604263|0323410480EYExkhvnmic for patient fsvg94858-7RvccVOLRAZHEUIOHgixstqds C-CDA narrative sxfu352144602Ciicrpzc Hernandez RN[address] Iq[id number] OERSZZCYQKIVQZGMOUQQV2929-65-11B05:58 :431.2.840.002478.1.72.3.15|1.2.840.1 48198.1.13.104.2.7.2.727879_[id number] [address] [facility] 2023-07-02 12:10:00 A4xp78qyVnv4Rw3An1nAB2K77Lw3cCLGYSTBF [facility]+/KnVemdqyRU2DnyOb3shZ2d7703-70-60 T12:10:00 Please call patient and let her know she has both BV and trich. I sent flagyl erx which will treat both. Her partner also needs treatment. You can call in Flagyl 2000 mg PO once. 34130-4Mixxdyvlr encounter OaboPR0042-75-00J74:12:03Telephone encounter NoteTXT1.2.840.239135.1.13.104.2.7.2. 189632|[id number] for patient bhwe99128-2VlgbBNLDISSKOYLXdvzvyqfk C-CDA narrative textUT[id number] UPGAASWVLERMLLFWEBKGW1800-32-72A59:12 :031.2.840.794672.1.72.3.15|1.20.1 57608.1.13.104.2.7.2.727879_[id number] [address] [facility] 2023-06-22 11:19:41 SaOmnGRkLCS1kL21cCfgKY4OxV2xTcxS3bPdi jPAV4Q/Q6szh1vAo0eeim3DbGtH9605-41-36 T11:19:41 Contacted Dorothea Coppola for assistance with appointment. Appointment scheduled with Dr. [place]. 10553-9Vsbpuvfpt encounter BwgzMF2535-36-72T83:21:49Telephone encounter NoteTXT1.2.840.783871.1.13.104.2.7.2. 953179|[id number] for patient wvzn31696-1ZodwEGYHIDTZFZLOhalhjhhh C-CDA narrative [id number] Foster RNUT[id number] MHIJWZAFYGMBNDJHDDWLI6621-30-75D67:21 :491.2.840.311509.1.72.3.15|1.2840.1 79356.1.13.104.2.7.2.727879_[id number] [address] [facility] 2023-06-22 09:22:51 MEHlJJ+oVgP1zt89dRSp8QbDMugiaQMiAzY// mD13/12U/Gfc2woijii0IWc7Pbt5972-29-32 T09:22:51 Eduar Raya is a 27 year old femalePatient is calling stating per her discharge summary she is suppose to have an gab with Dr. Wellington tomorrow Wed 06.23.23. Please assist.[phone] (home) 54212-8Pxgwsozrb encounter ZlxlIJ4632-81-96X41:26:38Telephone encounter NoteTXT1.2.840.309448.1.13.104.2.7.2. 395707|[id number] for patient tyus39234-7OduaWEEZWRLVUUCHzmfkkjmd C-CDA narrative [id number] M Garcia[address] Zp[id number] FGQUIQNBAZCLNSTWXTIOZ6970-92-88C93:26 :381.2.840.754620.1.72.3.15|1.2.840.1 07255.1.13.104.2.7.2.727879_[id number] [address] [facility] 2023-06-21 19:45:00 2PVgEA62uy1R7PgiKMi4T1hnMOB6VfANiQlkN 4a5uTO8bDP704TMhF6j27mbgl3R3609-90-65 T19:45:00 Pt given printed and verbal discharge instructions regarding hand pain, encouraged RICEPrescription sent to pt's pharmacyDiscussed ibuprofen and to take with food to avoid GI distress, alternate with Tylenol to help with pain and/or feverPt verbalized understanding of instructions,pt encouraged to follow up with pcp and or hand surgeryAdvised to seek medical attention for new/prolonged/worsening of symptoms,Awake, alert oriented, resp reg unlabored, skin w/d, pt leaving in no apparent distress, 03892-1Ljhitqipz department UoovWL4341-39-19G94:19:47[facility]chi [facility] department NoteTXT1.2.840.582086.1.13.104.2.7.2. 849233|[id number] for patient iauq47731-3XdasVLAIZPXROENJcjepwvwd C-CDA narrative [id number] R Shehadeh RN[address] Zs[id number] KCBAPTMCIPEQUBDUEGMIS0171-49-51W28:19 :471.2.840.856499.1.72.3.15|1.2.840.1 11155.1.13.104.2.7.2.727879_[id number] [address] [facility] 2023-06-21 18:09:34 bUlYrrAppU8fYyuR2AUGkgcyADSkw1D+Vxx0g 39WyEtEyYnDqrah/wjgMNgg6l+O8353-40-34 T18:09:34 Pt arrived via private car with c/o left hand- index, middle and ring finger. States she was making a cheese cake and her "hand got caught in the mixer." 48870-8Jmysosczd department Triage hpbzQH9323-66-20G97:12:19Emerchi [facility] department Triage noteTXT1.2.840.731786.1.13.104.2.7.2. 905657|[id number] for patient wzwx20996-9Gyumnyycv department NoteLNNARRATIVEFormatted C-CDA narrative textUT39 [address] [id number] HARHHTGIILRPKSZUAJOTI9006-06-29K45:12 :191.2.840.559060.1.72.3.15|1.2.840.1 93734.1.13.104.2.7.2.727879_[id number] 3 [facility] 2023-01-25 23:27:27 4MwsQ09hSw861UdNho/1P1Z4pt4MzD1eZXQ5v zsnVnAgUZNXGUDbC6qNuVCXXPOC6188-47-46 T23:27:27 Pt given printed and verbal discharge instructions regarding acute low back pain without sciatica, encouraged hydration,0 Prescriptions providedPt verbalized understanding of instructions, pt awake alert oriented, resp reg unlabored, skin w/d, color appropriate for race, moves all ext well,pt encouraged to follow up with pcp. Advised to seek medical attention for new/prolonged/worsening of symptoms,Symptoms improved. No adverse reaction to meds given in ER noted upon dischargePIV d'cd, dressing to site, catheter in tact.Awake, alert oriented, resp reg unlabored, skin w/d, pt leaving amb with steady gait, in no apparent distress, 06272-3Kqkyvsjct department GivnTC0697-56-91H19:28:05Emerchi [facility] department NoteTXT1.2.840.129777.1.13.104.2.7.2. 774220|[id number] for patient djzp08647-4IubtMU727814503Jtkprfvc M Felix RNUT[id number] KGERJZISKPXGMLPYTETFQ3575-90-31Y11:28 :051.2.840.870755.1.72.3.15|1.2.840.1 41938.1.13.104.2.7.2.727879_[id number] 4 [address] Nic [address] [facility] 2023-01-25 21:29:25 EWkvVMboQ7l/iyOHy97sOJGsaoaFGUXzQKN/+ RPkk0QTLNv8yHqQNDcAFXVAgIyZ7243-73-33 T21:29:25 Pt had a D&C . POCT is negative. PMX: Gallbladder removed 12/2021 13061-8Owxwkvxye department GebgVI0024-42-04C76:31:19Emergency department NoteTXT1.2.840.410142.1.13.104.2.7.2. 289776|[id number] for patient [id number] A Diaz RN[address]Py[id number] UUYDLFHZTYJCFNXSAGKGC7227-90-50H49:31 :191.2.840.464622.1.72.3.15|1.2.840.1 33557.1.13.104.2.7.2.727879_[id number] [address] [facility] 2023-01-25 20:58:23 dhR84sHecDnIM4ByIo11dKDDPs277j5HNxoCf pJNgqgsuUWjjCNfT/VP65aIgu8y4438-84-43 T20:58:23 Right lower abdominal pain radiating to right flank/back for 3 days. Pain started intermittently but now is constant. Pain originated in the abdomen. Denies any vaginal discharge or blood in urine. 68973-1Uvuvvvxjt department Triage zgpeQU6572-97-36B29:59:37[facility] department Triage noteTXT1.2.840.461960.1.13.104.2.7.2. 605338|[id number] for patient fswm79867-9Gqtfqfjnz department [id number] A. Campbell RNUT[address] StreetSccgCvrbpxvbdFumigyfuxZMSP4767397141W ESKBSMJUWMLMVWHDLWLSK1009-26-66K94:59 :371.2.840.549189.1.72.3.15|1.2.840.1 81989.1.13.104.2.7.2.727879_[id number] [address] [facility] 2023-01-25 20:49:00 WNf7wZ5OCLnxc3NBV0cfOxOgiNwhpkMENWWYR Wh8+e/m5upomvhC8ZcGG5D8Rxrf9049-29-64 T20:49:00Associated Order(s): EKG-12 Lead ONCEPre-Procedure Diagnose(s): Acute low back pain without sciatica, unspecified back pain lateralityPost-Procedure Diagnose(s): Acute low back pain without sciatica, unspecified back pain laterality [facility] Emergency Department NotePatient Name: Eduar Finley of : 1995 27 year old femaleTreatment Room: ID1/WQ6Otxnhwj Record Number: [id number] Care Physician: Tawana Lunaatiadrian Escorted by: Self [9]Mode of Arrival: Personal means [1]EMS Treatment Prior to ED Arrival: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 female with c/o RLQ abdominal and flank pain x 2 days. Denies any fever/chills. +nausea. Patient reports recent D&C(for miscarriage) and subsequent Laparoscopy with left ovarian cyst aspiration. Past Medical History/Immunizations:Past Medical History: Diagnosis Date Anemia 2018 ongoing, taking vitamins Anxiety 2001 Resolved, not on meds Arthritis 02/19/2017 Asthma ongoing, 04/2020 in hospital for asthma attack Depression 2001 Resolved, not on meds Dysmenorrhea 04/18/2022 Esophageal reflux History of anemia 08/11/2022 Hypertension 2018 gestational, resolved. Irregular menstrual cycle 04/03/2022 Ovarian cyst, left 10/22/2022 PTSD (post-traumatic stress disorder) Transfusion history 2011 After First Baby Tetanus received in last 5 years: YesChildhood immunizations: Up-to-date Allergies:Allergies Allergen Reactions Iodine Anaphylaxis and Swelling Past Social History:Tobacco Use Never smoked or used smokeless tobacco. Passive Exposure: Never Alcohol Use Not Currently. Comments: on occassion, liquor and beer on occassions. Drug Use No. Sexual Activity Sexually active; Partners: Male; Control/Protection: None. Comments: Last intercourse: 11/19/2022 Past Surgical History:Past Surgical History: Procedure Laterality Date SECTION Dr Aragon SECTION N/A 09/24/2016 Surgeon: Joe Martino MD; Location: [facility] Labor and Delivery OR Location SECTION N/A 03/08/2018 Surgeon: Gloria Atkins; Location: Labor and Delivery - [facility] CHOLECYSTECTOMY 2021 DIAGNOSTIC LAPAROSCOPY N/A 01/08/2023 Surgeon: Mariajose Ramsey MD; Location: [facility] OR LOCATION DILATION AND CURETTAGE (SHX) 2010 Both (Dr Martino) DILATION AND CURETTAGE (SHX) N/A 09/27/2022 Surgeon: Gillian Reno MD; Location: [facility] OR [facility] DILATION AND CURETTAGE (SHX) N/A 01/08/2023 Surgeon: Mariajose Ramsey MD; Location: [facility] OR LOCATION HYSTEROSCOPY N/A 01/08/2023 Surgeon: Mariajose Ramsey MD; Location: [facility] OR [facility] LAPAROSCOPIC LYSIS OF ADHESIONS (SHX) N/A 01/08/2023 Surgeon: Mariajose Ramsey MD; Location: [facility] OR LOCATION LAPAROSCOPIC OVARIAN CYST ASPIRATION Left 01/08/2023 Surgeon: Mariajose Ramsey MD; Location: [facility] OR [facility] TONSILLECTOMY WITH ADENOIDECTOMY Age 2 Review of Systems: Review of Systems Constitutional: Negative for chills and fever. HENT: Negative. Eyes: Negative. Respiratory: Negative. Breasts: Negative. Cardiovascular: Negative. Gastrointestinal: Positive for abdominal pain and nausea. Negative for abdominal distention, anal bleeding, constipation, rectal pain and vomiting. Genitourinary: Negative for urgency, decreased urine volume, vaginal bleeding, vaginal discharge and vaginal pain. Musculoskeletal: Negative. Skin: Negative. Neurological: Negative. Psychiatric/Behavioral: Negative. Endocrine: Endocrine negativePhysical Exam: ED Triage Vitals [01/25/232058] Weight 90.7 kg (200 lb) Actual or estimated Estimated by patient/family report Height 1.702 m (5' 7") BP 123/80 Pulse 85 Resp 20 Temp 37.3 ?C (99.1 ?F) Temp source Oral SpO2 100 % Measured on Room air Physical ExamVitals and nursing note reviewed. Constitutional: Appearance: Normal appearance. HENT: Head: Normocephalic and atraumatic. Nose: Nose normal. Mouth/Throat: Mouth: Mucous membranes are moist. Eyes: Pupils: Pupils are equal, round, and reactive to light. Cardiovascular: Rate and Rhythm: Normal rate. Pulses: Normal pulses. Pulmonary: Effort: Pulmonary effort is normal. Abdominal: Palpations: Abdomen is soft. Musculoskeletal: General: Normal range of motion. Skin: General: Skin is warm. Capillary Refill: Capillary refill takes less than 2 seconds. Neurological: General: No focal deficit present. Mental Status: She is alert and oriented to person, place, and time. Psychiatric: Mood and Affect: Mood normal. Behavior: Behavior normal. Radiology:CT ABDOMEN PELVIS WO CONTRAST Final Result ORDERING PHYSICIAN:GAURAV JOHN CLINICAL INFORMATION: Abdominal pain, acute, nonlocalized Iodine allergy COMPARISON: None Technique: CT of the abdomen and pelvis was performed without IV or p.o. contrast. Multiplanar reformats were also obtained. This study was performed according to ALARA principle for radiation dose reduction. Findings: No urinary calcifications or signs of urinary obstruction are seen. Gallbladder surgically absent. Unenhanced liver, spleen, adrenal glands, pancreas show no evidence of gross abnormalities. There is no bowel obstruction. Appendix is normal. Uterus and adnexa show no evidence of distinct acute abnormalities. No free intraperitoneal air or fluid are present. No pathologically enlarged lymph nodes are seen in the abdomen or pelvis. The lung bases are clear. There are no suspicious focal osseous lesions. IMPRESSION 1. No urinary calcifications or signs of urinary obstruction. 2. No distinct acute intraperitoneal abnormalities or free fluid seen on this noncontrast exam. If symptoms or clinical suspicion persist consider a follow-up with a contrast study.. 3. Surgically absent gallbladder. END OF REPORT [id number] Lab Results:Lab Results URINALYSIS - Abnormal Result Value Ref Range APPEARANCE Clear Clear COLOR Straw (*) Yellow PH 6.0 4.8 - 8.0 SP GRAVITY 1.006 1.003 - 1.030 GLU U QUAL Normal Normal BLOOD Negative Negative KETONES Negative Negative PROTEIN Negative Negative UROBILIN Normal Normal BILIRUBIN Negative Negative NITRITE Negative Negative LEUK GABBY Negative Negative RBC/HPF 1 0 - 3 HPF WBC/HPF 1 0 - 5 HPF BACTERIA Few (*) Negative MUCOUS Slight (*) Negative LPF SQ EPITH 2 HPF CBC WITH DIFF - Abnormal WBC 8.11 4.30 - 11.10 10*3/?L RBC 3.54 (*) 3.93 - 5.25 10*6/?L HGB 9.6 (*) 11.6 - 15.0 g/dL HCT 30.4 (*) 35.7 - 45.2 % MCV 85.9 80.6 - 95.5 fL MCH 27.1 25.9 - 32.8 pg MCHC 31.6 31.6 - 35.1 g/dL RDW-SD 42.7 39.0 - 49.9 fL RDW-CV 13.4 12.0 - 15.5 % PLT 424 (*) 166 - 358 10*3/?L MPV 9.9 9.5 - 12.9 fL IPF % 2.3 1.3 - 7.7 % NRBC/100 WBC 0.0 0.0 - 10.0 /100 WBCs NRBC x10^3 <0.01 10*3/?L GRAN MAT (NEUT) % 59.8 % IMM GRAN % 0.60 % LYMPH % 29.3 % MONO % 8.5 % EOS % 1.2 % BASO % 0.6 % GRAN MAT x10^3(ANC) 4.84 1.88 - 7.09 10*3/uL IMM GRAN x10^3 0.05 0.00 - 0.06 10*3/uL LYMPH x10^3 2.38 1.32 - 3.29 10*3/uL MONO x10^3 0.69 0.33 - 0.92 10*3/uL EOS x10^3 0.10 0.03 - 0.39 10*3/uL BASO x10^3 0.05 0.01 - 0.07 10*3/uL POCT TEST - Normal POCT PREG Negative On board controls acceptable with C Line Yes POCT PREG LOT # [id number] POCT PREG TEST DATE 03/26/2024 LIPASE - Normal LIPASE 132 0 - 220 U/L COMP. METABOLIC PANEL (33796) NA 139 135 - 145 mmol/L K 4.0 3.5 - 5.0 mmol/L CL 103 98 - 108 mmol/L CO2 TOTAL 25 23 - 31 mmol/L AGAP 11 2 - 16 BUN 12 7 - 23 mg/dL GLUCOSE 93 70 - 110 mg/dL CREATININE 0.62 0.50 - 1.04 mg/dL TOTAL BILI 0.4 0.1 - 1.1 mg/dL CALCIUM 9.3 8.6 - 10.6 mg/dL T PROTEIN 8.1 6.3 - 8.2 g/dL ALBUMIN 4.4 3.5 - 5.0 g/dL ALK PHOS 89 34 - 122 U/L ALTv 19 5 - 35 U/L AST(SGOT) 34 13 - 40 U/L eGFR 113.8 mL/min/1.73m2 EKG:If EKG completed, see Procedure Note. Orders and Treatments:Orders Placed This Encounter Procedures CT ABDOMEN PELVIS WO CONTRAST URINALYSIS POCT TEST CBC WITH DIFF COMP. METABOLIC PANEL (56174) LIPASE Orders Placed This Encounter Medications morpHINE (4 mg/mL) injection 4 mg ondansetron (ZOFRAN (PF)) injection 4 mg First Provider Eval:ED Events None No notes of EC Admission Criteria type on file.ED COURSEDiagnosis/Impression as of 01/25/232318 Acute low back pain without sciatica, unspecified back pain laterality Procedures: EKG-12 Lead ONCEDate/Time: 01/25/2023 11:02 PMPerformed by: Gaurav John MDAuthorized by: Gaurav John MD ECG reviewed by ED Physician in the absence of a subcontracts manager: yes Previous ECG: Previous ECG: UnavailableInterpretation: Interpretation: normal Rate: ECG rate: 68 ECG rate assessment: normal Rhythm: Rhythm: sinus rhythm Ectopy: Ectopy: none QRS: QRS axis: Normal QRS intervals: Normal QRS conduction: normal ST segments: ST segments: NormalT waves: T waves: normal Comments: Normal EKGMDM:Medical Decision MakingAmount and/or Complexity of Data ReviewedLabs: ordered.Radiology: ordered.RiskPrescription drug management.Parenteral controlled substances.A) Abdominal Pain-stable at this timeDisposition/Condition: Home, rest, hydration, Er warnings, f/u PCPED Disposition ED Disposition Disch - Home Condition Stable Comment -- Discharge Medications:Patient's Medications START taking these medications No medications on file CONTINUE taking these medications which have NOT CHANGED DOXYLAMINE-PYRIDOXINE, VIT B6, (DICLEGIS) 10-10 MG PER TABLET Day 1: Take 2 tablet before bed. Day 2: If still having nausea and vomiting 2 tablet bed. Day 3 take 1 tablet in am and 2 tablet at bed HYDROCODONE-ACETAMINOPHEN 5-325 MG TABLET Take 1 tablet by mouth every 6 (six) hours as needed (Pain). Indications: acute pain IBUPROFEN 800 MG TABLET Take 1 tablet by mouth every 8 (eight) hours as needed (Pain). ONDANSETRON 4 MG DISINTEGRATING TABLET Take 1 tablet by mouth every 12 (twelve) hours as needed for Nausea and Vomiting (N/V). VITAMIN W/FA TABLET Take 1 tablet by mouth in the morning. START taking Modified Medications as Prescribed No medications on file STOP taking these medications No medications on file Follow-up: PCPElectronically signed by: Gaurav John MD01/25/239 50987-7Sbkrxxtlw Emergency department HcaeQE5724-42-81O22:19:59Physician Emergency department NoteTXT1.2.840.374051.1.13.104.2.7.2. 821288|[id number] for patient ffnr10651-3Opjppvofc department NoteLN[id number] IULGMEHWZAAHIOZBTPTPE4369-29-99H77:19 :591.2.840.668152.1.72.3.15|1.2.840.1 94645.1.13.104.2.7.2.727879_[id number] [address] [facility] 2023-01-20 15:56:59 yi1CTyJfj/+Xb3VkqNiaLw5vaWpDTzthRD5q/ MsfUAw50QPfDTkwngaJn/cUgG+j9676-95-72 T15:56:59 Pt was seen on 01/18.YELENA BROWN RN 01/20/2023 3:57 PM 51862-2Wxbiaorxv encounter BdepYT3241-40-11G63:57:27Telephone encounter NoteTXT1.2.840.161184.1.13.104.2.7.2. 733367|[id number] for patient tmdr56182-5YuauBU300948367Oqaxlysgk G Cervantes RN[id number] CZKZHUNERKVDVPVPHQRJE6935-85-79U73:57 :271.2.840.681830.1.72.3.15|1.2.840.1 63116.1.13.104.2.7.2.727879_[id number] [address] [facility] 2023-01-18 16:29:22 18UegNjZhGUCi11xfmkXMGk7jQNaNYupK9ldf dEksaWfI392RcmMGNtXJxlOG1wS6428-40-44 T16:29:22 Pt given printed and verbal discharge instructions regarding phlebitis, encouraged hydration.0 Prescriptions providedDiscussed ibuprofen and to take with food to avoid GI distress.Pt verbalized understanding of instructions, pt awake alert oriented, resp reg unlabored, skin w/d, color appropriate for race, moves all ext well,pt encouraged to follow up with pcp.Advised to seek medical attention for new/prolonged/worsening of symptoms,Symptoms improvedNo adverse reaction to meds given in ER noted upon dischargeAwake, alert oriented, resp reg unlabored, skin w/d, pt leaving amb with steady gait, in no apparent distress. 83202-2Nvnvmqecs department YipiSI4992-78-52Q48:29:58Emerchi [facility] department NoteTXT1.2.840.327030.1.13.104.2.7.2. 727198|[id number] for patient ykif82495-5IifxAZNOPKTTVV[id number] QPVPEJTNBADUYBNRXMGMT9552-65-67R51:29 :581.2.840.292918.1.72.3.15|1.2.840.1 72511.1.13.104.2.7.2.727879_[id number] [address] [facility] 2023-01-18 14:34:05 VZK37gs1dou1Nj2A8M6vbUusmktbA3gY+GPDA ijXG59oV9sK6dtNVYZNQKaB/OEn0907-01-56 T14:34:05 Pt arrived via private car with c/o left upper arm pain and intermittent swelling that has been ongoing since 01/08/2023 post surgery. 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 26871-4Wvzmkhqnp department Triage bdeqKT3716-50-28N96:38:10[facility] Triage noteTXT1.2.840.755351.1.13.104.2.7.2. 756614|[id number] for patient ydzs81493-0Afwiohxdc department NoteLNUT[address] Im[id number] BWMEAWETISSYURXPZDVWS1579-05-51B22:38 :101.2.840.981603.1.72.3.15|1.2.840.1 94447.1.13.104.2.7.2.727879_[id number] [address] [facility] 2023-01-18 14:31:00 JJh35ahSZPCXyfzimq8xVBa2+JjvbUnddXFQz r3Ot9EdGQspQYutWSfMrojc+Tso4262-89-48 T14:31:00 [facility] Emergency Department NotePatient Name: Eduar Finley of : 1995 27 year old femaleTreatment Room: [place] [address]Medical Record Number: [id number] Care Physician: Tawana Lunaatiadrian Escorted by: Family [5]Mode of Arrival: Personal means [1]EMS Treatment Prior to ED Arrival: Travel and Exposure Screening:SymptomsDoes patient have any of these symptoms?: (not recorded)Exposure ScreeningHas patient had contact with someone with a communicable disease in the last month?: (not recorded)Diseases exposed to:: (not recorded)Is Patient ?: (not recorded)Exposure Date: (not recorded)Chief Complaint:Chief Complaint Patient presents with Arm Pain Left-Hx DVT History of Present Illness:The patient presents from home for evaluation for swelling and pain into her left arm since January 08. She did have surgery at that time for a D&C as well as a cyst removal. She had several IVs placed during that time period. She has intermittently been using Motrin at home for her pain last had a dose yesterday. No medications for pain today. No fevers or chills. She does report a history of a blood clot in her right arm in the past related to a prior surgical procedure. She does not take any blood thinners. No chest pain or shortness of breath. No history of high blood pressure or diabetes.Here for evaluation.Past Medical History/Immunizations:Past Medical History: Diagnosis Date Anemia 2017 ongoing, taking vitamins Anxiety 2001 Resolved, not on meds Arthritis 02/19/2017 Asthma ongoing, 04/2020 in hospital for asthma attack Depression 2001 Resolved, not on meds Dysmenorrhea 04/18/2022 Esophageal reflux History of anemia 08/11/2022 Hypertension 2018 gestational, resolved. Irregular menstrual cycle 04/03/2022 Ovarian cyst, left 10/22/2022 PTSD (post-traumatic stress disorder) Transfusion history 2011 After First Baby Allergies:Allergies Allergen Reactions Iodine Anaphylaxis and Swelling Past Social History:Tobacco Use Never smoked or used smokeless tobacco. Passive Exposure: Never Alcohol Use Not Currently. Comments: on occassion, liquor and beer on occassions. Drug Use No. Sexual Activity Sexually active; Partners: Male; Control/Protection: None. Comments: Last intercourse: 11/19/2022 Past Surgical History:Past Surgical History: Procedure Laterality Date SECTION Dr Aragon SECTION N/A 09/24/2016 Surgeon: Joe Martino MD; Location: [facility] Labor and Delivery OR Location SECTION N/A 03/08/2018 Surgeon: Gloria Atkins; Location: Labor and Delivery - [facility] CHOLECYSTECTOMY 2021 DIAGNOSTIC LAPAROSCOPY N/A 01/08/2023 Surgeon: Mariajose Ramsey MD; Location: [facility] DILATION AND CURETTAGE (SHX) 2010 Both (Dr Martino) DILATION AND CURETTAGE (SHX) N/A 09/27/2022 Surgeon: Gillian Reno MD; Location: [facility] OR LOCATION DILATION AND CURETTAGE (SHX) N/A 01/08/2023 Surgeon: Mariajose Ramsey MD; Location: [facility] HYSTEROSCOPY N/A 01/08/2023 Surgeon: Mariajose Ramsey MD; Location: [facility] LAPAROSCOPIC LYSIS OF ADHESIONS (SHX) N/A 01/08/2023 Surgeon: Mariajose Ramsey MD; Location: [facility] OR [facility] LAPAROSCOPIC OVARIAN CYST ASPIRATION Left 01/08/2023 Surgeon: Mariajose Ramsey MD; Location: [facility] TONSILLECTOMY WITH ADENOIDECTOMY Age 2 Review of Systems: Review of Systems Constitutional: Negative for chills and fever. Respiratory: Negative for cough and shortness of breath. Cardiovascular: Negative for chest pain. Gastrointestinal: Negative for abdominal pain, nausea and vomiting. Genitourinary: Negative for dysuria. Musculoskeletal: Positive for myalgias. Negative for arthralgias, neck pain and neck stiffness. Skin: Negative for wound. Neurological: Negative for dizziness. Psychiatric/Behavioral: Negative for agitation. Endocrine: Negative for goiter. Physical Exam: ED Triage Vitals [01/18/23 1436] Weight 91.6 kg (201 lb 14.4 oz) Actual or estimated Actual Height 1.702 m (5' 7") BP 122/83 Pulse 75 Resp 16 Temp 36.8 ?C (98.3 ?F) Temp source Oral SpO2 99 % Measured on Room air Physical ExamVitals and nursing note reviewed. Constitutional: Appearance: Normal appearance. She is obese. HENT: Head: Normocephalic and atraumatic. Cardiovascular: Rate and Rhythm: Normal rate. Pulmonary: Effort: Pulmonary effort is normal. No respiratory distress. Abdominal: General: There is no distension. Palpations: Abdomen is soft. Musculoskeletal: Cervical back: Normal range of motion and neck supple. Comments: Full range of motion of her left shoulder, wrist and elbow.There is a ropelike structure along the medial aspect of her left ventral upper arm that is mildly tender, warm and swollen. No fluctuance. Neurological: General: No focal deficit present. Mental Status: She is alert and oriented to person, place, and time. Radiology:No orders to display Lab Results:Lab Results - No data to displayEKG:If EKG completed, see Procedure Note. Orders and Treatments:No orders of the defined types were placed in this encounter.No orders of the defined types were placed in this encounter.First Provider Eval:ED Events Date/Time Event User Comments 01/18/23 1449 Medical Screening Begins DEB BENAVIDEZ DO -- 01/18/23 144 First Provider Evaluation DEB BENAVIDEZ DO -- No notes of EC Admission Criteria type on file.ED COURSEDiagnosis/Impression as of 01/18/23 1622 Pain of left upper extremity Phlebitis Procedures: ProceduresMDM:Medical Decision MakingThe patient presents from home for evaluation for pain and swelling to her left arm since January 08. She reports she was admitted to the hospital then for D&C as well as a cyst removal. She did have several IV lines placed during that admission. She has been intermittently using Motrin at home for pain and last had dose yesterday. No medications for symptoms today. She does have history of a prior clot in her right arm in the past. She does not take any blood thinners.Vital signs are stable in the ER.She has full range of motion of her left elbow and shoulder.She is a ropelike structure noted to the medial aspect of her left ventral upper arm that is tender, warm and swollen.Suspect phlebitis and less likely a DVT.We will obtain a vascular ultrasound to evaluate for possible DVT.Anticipate discharge home later.1620 -the patient is doing well in the ER.The DVT study of her left arm shows no DVT rather just phlebitis.Recommend warm compress as well as NSAIDs.She remained stable here in the ER and is okay for discharge home with PCP follow-up.Problems Addressed:Pain of left upper extremity: acute illness or injuryPhlebitis: acute illness or injuryAmount and/or Complexity of Data ReviewedRadiology: ordered. Decision-making details documented in ED Course.RiskOTC drugs. Flowsheet Documentation: Scoring Tools: No data recorded Disposition/Condition:ED Disposition ED Disposition Disch - Home Condition Stable Comment -- Discharge Medications:Patient's Medications START taking these medications No medications on file CONTINUE taking these medications which have NOT CHANGED DOXYLAMINE-PYRIDOXINE, VIT B6, (DICLEGIS) 10-10 MG PER TABLET Day 1: Take 2 tablet before bed. Day 2: If still having nausea and vomiting 2 tablet bed. Day 3 take 1 tablet in am and 2 tablet at bed HYDROCODONE-ACETAMINOPHEN 5-325 MG TABLET Take 1 tablet by mouth every 6 (six) hours as needed (Pain). Indications: acute pain IBUPROFEN 800 MG TABLET Take 1 tablet by mouth every 8 (eight) hours as needed (Pain). ONDANSETRON 4 MG DISINTEGRATING TABLET Take 1 tablet by mouth every 12 (twelve) hours as needed for Nausea and Vomiting (N/V). VITAMIN W/FA TABLET Take 1 tablet by mouth in the morning. START taking Modified Medications as Prescribed No medications on file STOP taking these medications No medications on file Follow-up:Electronically signed by: Deb Benavidez DO01/18/23 1622 50377-1[facility] Emergency department HpdeAY5740-77-29D66:22:34[facility] Emergency department NoteTXT1.2.840.559097.1.13.104.2.7.2. 468493|[id number] for patient ekbw16539-6Hvvjeuipa department Note[address] Kh[id number] SPBGOGKEEVLEQFDXGYPDF2475-92-36B44:22 :341.2.840.620471.1.72.3.15|1.2.840.1 96168.1.13.104.2.7.2.727879_[id number] 0 [facility] 2023-01-18 09:30:00 5qrAYiUAZG9b+oDtkMh8Rnydn7JKtC/Zv2ZbX cOOXMYc9neaSV9eSO2ick0oKKlZ9740-00-44 T09:30:00 Addended by: ZENA DONALDSON on: 01/18/2023 12:55 PM Modules accepted: Orders 67168-1Nrawuzyo DqzfkwazCE4590-50-95B17:55:13Addendum DocumentTXT1.2.840.380283.1.13.104.2. 7.2.075458|[id number] for patient ofty81383-0RpwfHGGZSLWMMU[address] [id number] KWFCJSHOPFEFJAKAOUIUM4990-65-29A17:55 :131.2.840.455946.1.72.3.15|1.2.840.1 14717.1.13.104.2.7.2.727879_[id number] 5 [facility] 2023-01-09 10:30:20 pjmtsvF0jRMGu5cFontk/B3B2SQXikX+h3fiJ dWMJ4Vc2gKbbY/Kcu5ktADD7/wc3874-16-66 T10:30:20 Problem: PainGoal: Control of pain at or below patient's documented comfort goalOutcome: Progressing as expectedGoal: Reduction in pain sensationOutcome: Progressing as expected Problem: Venous Thromboembolism, (actual or risk of)Goal: Absence of venous thromboembolism (Risk)Outcome: Progressing as expectedGoal: Prevent further complications associated with VTE diagnosis (Actual)Outcome: Progressing as expected Problem: Falls, Risk ofGoal: Absence of fallsOutcome: Progressing as expected Problem: Infection RiskGoal: Absence of infectionOutcome: Progressing as expected 95593-0Zpbu of care izwxXB2992-56-77X10:30:24Plan of care noteTXT1.2.840.820634.1.13.104.2.7.2. 870284|[id number] for patient [id number] E Yarbrough [id number] EPKTJHCLZPFKXZXRIFRZT1973-10-75K76:30 :241.2.840.526461.1.72.3.15|1.2.840.1 32612.1.13.104.2.7.2.727879_[id number] [address] [facility] 2023-01-09 01:47:43 udP0MwNu5GTEF4KtUBqVqVtCpVNZJg4pwCWy1 us9C4Q8Q4fAZHO4/CUG7ttgd2L15662-87-81 T01:47:43 Problem: PainGoal: Control of pain at or below patient's documented comfort goalOutcome: Progressing as expectedGoal: Reduction in pain sensationOutcome: Progressing as expected Problem: Venous Thromboembolism, (actual or risk of)Goal: Absence of venous thromboembolism (Risk)Outcome: Progressing as expectedGoal: Prevent further complications associated with VTE diagnosis (Actual)Outcome: Progressing as expected Problem: Falls, Risk ofGoal: Absence of fallsOutcome: Progressing as expected Problem: Infection RiskGoal: Absence of infectionOutcome: Progressing as expected 08721-1Inzq of care mqezOA5639-06-21E88:47:59Plan of care noteTXT1.2.840.194608.1.13.104.2.7.2. 806917|[id number] for patient [address] Eh[id number] UVCRQIOAKKDMUZLLSDKVA7974-16-21L82:47 :591.2.840.818382.1.72.3.15|1.2.840.1 40943.1.13.104.2.7.2.727879_[id number] 9 [facility] 2023-01-08 19:50:00 PgZHztTveb7M3RxKe/fAdYceRK9RXVJTShJ8p IM0Wu31Tj6rS9sjyj5csB0rXDiC1050-08-92 T19:50:00 Faculty Surgeon(s): Parisa Dimasthesia Type: General, ETIV Fluids: 3500 cc Lactated RingersColloid Fluids: NoneSpecimens Sent to Pathology: Products of conceptionUrine Output: 250 cc of clear urineComplications: Uterine perforationEstimated Blood Loss: 850 mL- from D&CDisposition: PACUStatus: StableFluid In: 1090 ccFluid Out: 605 ccFluid Deficit: 485 ccIndication: Eduar Raya is a 27 year old female, with failed and possible molar ,followed at the [facility] in [place], presented to the ER with worsening lower abdominal pain and agree to proceed with suction D&C Findings:Bulky uterus, 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 Posterior uterine wall perforation. Left ovarian cyst, simple. Bands of omentum adhesion to the anterior abdominal wall.Procedure details: After obtaining informed consent, the patient was taken to the or where general anesthesia was secured without difficulty. She was placed on the operating table in the dorsal lithotomy position and prepped and draped in the usual sterile fashion.Time out was performedFoley was placed Bivalved speculum placed and anterior lip of the cervix grasped with a single toothed tenaculum. The procedure was performed under ultrasound guidanceCervical os was dilated to 10 Hegar under ultrasound guidance.The 10 mm curved suction curette was advanced to the fundus with evaucation of copious amounts of tissue and blood. I was unable pass the metal curette past BRYCE of the uterus due to acute retroversion of the uterus. So further suction curettage was done with mainly blood clots retrieved. She was given Methergine and Oxytocin infusion was commencedAnother attempt to pass metal curette was also unsuccessful but this time around I could not see the tip of the curette on the ultrasound. No sharp curettage was performedBleeding had stopped with uterotonics. And ET was 0.4mm on ultrasound I decided to perform a diagnostic hysteroscopy for direct visualization with the possibility of direct retrieval of any residual POC A 6mm Truclear hysteroscope was placed into the cervical canal and directed into the uterine cavity under direct visualization using normal saline as a disctention media. No definite POC was visualized but the procedure was abandoned due to rapid rising deficit which is concerning for suspected perforation. Decision to proceed laparoscopyPatient was repositioned, prepped and draped in the usual sterile fashion for abdominal surgery. Sponge stick was used for uterine manipulation.Attention was turned to the abdomen the infraumbilical skin was infiltrated with 0.25% Marcain and a 5mm intraumbilical skin incision was made. The abdominal wall was tented up and 5 mm trocar and laparoscope were inserted using direct optic entry technique using low CO2 gas flow. Once entry was achieved, the flow was increased to high flow until adequate pleuroperitoneum of 15 mmHg was achieved. No trauma was visualized at the point of entry. Patient was placed in [place] position and the abdominal and pelvic survey revealed the aforementioned findings. Two additional 5 mm ports was placed under direct visualization in the left and right lower quadrants after the skin had been infiltrated with 0.25% Marcaine.Blood tinged fluid was seen in the peritoneal cavity. Dense midline omental/anterior wall adhesions noted. Adhesions were taken down with Ligasure. Fluid suctioned out.Further pelvic survey revealed a posterior uterine wall perforation noted on the right side at the uterocervical junction. Some extravasation of blood was also noted along the right pelvic side wall but no expanding hematoma noted.The perforation and pelvic side was watched for a long time and was noted to be hemostatic even under 5 mmHg pressureThe left ovarian cyst was drained- clear fluid. Irrigation performed.Surgicel was placed over the perforation site All instruments were removed. The skin closed with 4-0 Monocryl using subcutaneous stitches. The sponge stick and castro were removed.Patient tolerated procedure well. Sponge, laps, [place] [address]-2Ksnxlbh Surgical operation fflrBU6759-28-97S35:41:18Surgery Surgical operation noteTXT1.2.840.887993.1.13.104.2.7.2. 092697|[id number] for patient care[address] LhpxDueuo[id number] DTFBGIJZHFSGCEMAEJXTM6157-77-00N40:41 :181.2.840.876281.1.72.3.15|1.2.840.1 37226.1.13.104.2.7.2.727879_[id number] 5 [facility] 2023-01-08 13:08:30 7EJ7ZhfHdXSDqANebTVqI+g1RP+2h8qc/JPqI bpWFSLrNyJBNDAPKnwkWGTkc90r4837-90-80 T13:08:30 Patient reported (after morphine administration) that she always itches after I.V. morphine. Provider notified and 25mg. Of Benadryl I.V. administered. Patient states she has no itching shortly after administration of benadryl. No wheezing, oral/facial edema or hives noted at any time. 51616-5Veknpmbnc department VrcdTA4302-23-02T64:10:26Emergen department NoteTXT1.2.840.203004.1.13.104.2.7.2. 798374|[id number] for patient uenz963189461Fgtncll P Muston RN[address] StreetSxpjRffbbdnulXuvsfqnfyRWYJ1026873826X GEXMTVRGLHOCRCAOEEJCF0793-84-80T58:10 :261.2.840.074179.1.72.3.15|1.2.840.1 03300.1.13.104.2.7.2.727879_[id number] [address] [facility] 2023-01-08 10:27:12 RQdoSb7B3E/r2cTDGcoHBhLEuVTc07FcNnxin bO2kD1X4FptGk0CILNr5IDBoeZe2609-26-04 T10:27:12 Patient states: "They diagnosed me with a molar (9 weeks ). I'm suppose to have the terminated on Wednesday. Last night I started getting worse back pain and pelvic pain. " Denies vaginal bleeding. 52195-2Rkpjeybla department Triage qzxrNV6042-91-63F72:28:15Emergency department Triage noteTXT1.2.840.351157.1.13.104.2.7.2. 598246|[id number] for patient zqym493903343Vksnu M Cruz RNUT[id number] MTALKVYDNTMOARFBQJHFR7585-79-05X52:28 :151.2.840.912305.1.72.3.15|1.2.840.1 89735.1.13.104.2.7.2.727879_[id number] [address] 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 She states she is scheduled for DC on Wednesday for Molar . Denies any urinary complaints. No vaginal bleeding. with PMHx of x4, cholecystectomy, and D&C. She states she vomited a few times yesterday and today. Ate breakfast this morning, ELECTRONIC GAMING DEVICE SUPERVISOR about 10 AMHistory provided by: PatientLanguage senior teradata developer used: No Past Medical History/Immunizations:Past Medical History: Diagnosis Date Anemia 2017 ongoing, taking vitamins Anxiety 2001 Resolved, not on meds Arthritis 02/19/2017 Asthma ongoing, 04/2020 in hospital for asthma attack Depression 2001 Resolved, not on meds Dysmenorrhea 04/18/2022 Esophageal reflux History of anemia 08/11/2022 Hypertension 2018 gestational, resolved. Irregular menstrual cycle 04/03/2022 Ovarian cyst, left 10/22/2022 PTSD (post-traumatic stress disorder) Transfusion history 2011 After First Baby Tetanus received in last 5 years: UnknownChildhood immunizations: Up-to-date Allergies:Allergies Allergen Reactions Iodine Anaphylaxis and Swelling Past Social History:Tobacco Use Never smoked or used smokeless tobacco. Alcohol Use Not Currently. Comments: on occassion, liquor and beer on occassions. Drug Use No. Sexual Activity Sexually active; Partners: Male; Control/Protection: None. Comments: Last intercourse: 11/19/2022 Past Surgical History:Past Surgical History: Procedure Laterality Date SECTION Dr Aragon SECTION N/A 09/24/2016 Surgeon: Joe Martino MD; Location: [facility] Labor and Delivery OR Location SECTION N/A 03/08/2018 Surgeon: Gloria Atkins; Location: Labor and Delivery - [place] CHOLECYSTECTOMY 2021 DILATION AND CURETTAGE (SHX) 2010 Both (Dr Martino) DILATION AND CURETTAGE (SHX) N/A 09/27/2022 Surgeon: Gillian Reno MD; Location: [facility] OR [facility] TONSILLECTOMY WITH ADENOIDECTOMY Age 2 Review of Systems: Review of Systems Constitutional: Negative for chills, fatigue and fever. HENT: Negative for congestion, ear pain and sore throat. Respiratory: Negative for cough, chest tightness and shortness of breath. Cardiovascular: Negative for chest pain, palpitations and leg swelling. Gastrointestinal: Positive for abdominal pain and vomiting. Negative for constipation, diarrhea and nausea. Genitourinary: Positive for pelvic pain. Negative for dysuria, flank pain and difficulty urinating. Musculoskeletal: Positive for back pain. Negative for arthralgias, gait problem, myalgias and neck pain. Skin: Negative for color change and rash. Neurological: Negative for dizziness, syncope, weakness, light-headedness and numbness. All other systems reviewed and are negative.Hematological: Does not bruise/bleed easily. Physical Exam: ED Triage Vitals [01/08/23 1028] Weight 90.7 kg (200 lb) Actual or estimated Estimated by patient/family report Height 1.702 m (5' 7") BP 116/76 Pulse 108 Resp 16 Temp 37.5 ?C (99.5 ?F) Temp source Oral SpO2 99 % Measured on Room air Physical ExamVitals and nursing note reviewed. Constitutional: Appearance: Normal appearance. She is not ill-appearing, toxic-appearing or diaphoretic. Interventions: She is not intubated.HENT: Head: Atraumatic. Cardiovascular: Rate and Rhythm: Normal rate. Pulmonary: Effort: Pulmonary effort is normal. No tachypnea, bradypnea, accessory muscle usage, prolonged expiration, respiratory distress or retractions. She is not intubated. Abdominal: Tenderness: There is abdominal tenderness in the right lower quadrant, suprapubic area and left lower quadrant. There is left CVA tenderness. Musculoskeletal: General: Normal range of motion. Cervical back: Normal range of motion. Skin: General: Skin is warm and dry. Neurological: General: No focal deficit present. Mental Status: She is alert and oriented to person, place, and time. GCS: GCS eye subscore is 4. GCS verbal subscore is 5. GCS motor subscore is 6. Psychiatric: Mood and Affect: Mood normal. Behavior: Behavior normal. Behavior is cooperative. Thought Content: Thought content normal. Judgment: Judgment normal. Radiology:No orders to display Lab Results:Lab Results CBC WITH DIFF - Abnormal Result Value Ref Range WBC 6.04 4.30 - 11.10 10*3/?L RBC 3.84 (*) 3.93 - 5.25 10*6/?L HGB 10.9 (*) 11.6 - 15.0 g/dL HCT 33.0 (*) 35.7 - 45.2 % MCV 85.9 80.6 - 95.5 fL MCH 28.4 25.9 - 32.8 pg MCHC 33.0 31.6 - 35.1 g/dL RDW-SD 40.9 39.0 - 49.9 fL RDW-CV 13.1 12.0 - 15.5 % PLT 273 166 - 358 10*3/?L MPV 10.2 9.5 - 12.9 fL NRBC/100 WBC 0.0 0.0 - 10.0 /100 WBCs NRBC x10^3 <0.01 10*3/?L GRAN MAT (NEUT) % 79.1 % IMM GRAN % 0.30 % LYMPH % 10.3 % MONO % 8.6 % EOS % 1.2 % BASO % 0.5 % GRAN MAT x10^3(ANC) 4.78 1.88 - 7.09 10*3/uL IMM GRAN x10^3 <0.03 0.00 - 0.06 10*3/uL LYMPH x10^3 0.62 (*) 1.32 - 3.29 10*3/uL MONO x10^3 0.52 0.33 - 0.92 10*3/uL EOS x10^3 0.07 0.03 - 0.39 10*3/uL BASO x10^3 0.03 0.01 - 0.07 10*3/uL COMP. METABOLIC PANEL (45173) - Abnormal NA 136 135 - 145 mmol/L K 3.6 3.5 - 5.0 mmol/L CL 104 98 - 108 mmol/L CO2 TOTAL 23 23 - 31 mmol/L AGAP 9 2 - 16 BUN 6 (*) 7 - 23 mg/dL GLUCOSE 97 70 - 110 mg/dL CREATININE 0.49 (*) 0.50 - 1.04 mg/dL TOTAL BILI 0.5 0.1 - 1.1 mg/dL CALCIUM 8.7 8.6 - 10.6 mg/dL T PROTEIN 7.5 6.3 - 8.2 g/dL ALBUMIN 3.9 3.5 - 5.0 g/dL ALK PHOS 61 34 - 122 U/L ALTv 18 5 - 35 U/L AST(SGOT) 23 13 - 40 U/L eGFR 149.3 mL/min/1.73m2 URINALYSIS - Abnormal APPEARANCE Hazy (*) Clear COLOR Yellow Yellow PH 7.0 4.8 - 8.0 SP GRAVITY 1.015 1.003 - 1.030 GLU U QUAL Normal Normal BLOOD Negative Negative KETONES Negative Negative PROTEIN Negative Negative UROBILIN Normal Normal BILIRUBIN Negative Negative NITRITE Negative Negative LEUK GABBY 25/uL (*) Negative RBC/HPF 2 0 - 3 HPF WBC/HPF 3 0 - 5 HPF BACTERIA Moderate (*) Negative MUCOUS Slight (*) Negative LPF SQ EPITH 13 HPF LIPASE - Normal LIPASE 81 0 - 220 U/L TYPE AND SCREEN ABO & RH A Positive IAT Negative TOTAL BETA HCG ASSAY EKG:If EKG completed, see Procedure Note. Orders and Treatments:Orders Placed This Encounter Procedures CBC WITH DIFF COMP. METABOLIC PANEL (58248) LIPASE URINALYSIS Type and Screen - ONCE STAT TOTAL BETA HCG ASSAY CONSULT LAND LEASE INFORMATION CLERK Orders Placed This Encounter Medications NaCl 0.9% (NS) bolus infusion 1,000 mL ondansetron (ZOFRAN (PF)) injection 4 mg morpHINE (4 mg/mL) injection 4 mg diphenhydrAMINE (BENADRYL) injection 25 mg morpHINE (4 mg/mL) injection 4 mg First Provider Eval:ED Events Date/Time Event User Comments 01/08/23 1031 Medical Screening Begins EBRACLARY GAONA -- 01/08/23 1031 First Provider Evaluation CLARY PEREZ -- ED COURSEDiagnosis/Impression as of 01/08/23 1356 Lower abdominal pain Molar Procedures: ProceduresMDM:Labs reviewed and unremarkable Spoke with Dr. Baca's resident, she states ok to keep in ANGSpoke with Dr. Ramsey, will come see patient and wanted me to call Anesthesia food preparation kitchen aide, which I did and was made aware of case. 1:31 PMDr. Ramsey present at bedside Patient Vitals for the past 24 hrs: BP Temp Temp src Pulse Resp SpO2 Height Weight 01/08/23 1302 -- -- -- -- 17 -- -- -- 01/08/23 1200 118/78 -- -- 93 17 99 % -- -- 01/08/23 1028 116/76 37.5 ?C (99.5 ?F) Oral 108 16 99 % 1.702 m (5' 7") 90.7 kg (200 lb) Medical Decision MakingAmount and/or Complexity of Data ReviewedLabs: ordered.RiskPrescription drug management.Parenteral controlled substances. Flowsheet Documentation: Scoring Tools: No data recorded Disposition/Condition:ED Disposition None Discharge Medications:Patient's Medications START taking these medications No medications on file CONTINUE taking these medications which have NOT CHANGED DOXYLAMINE-PYRIDOXINE, VIT B6, (DICLEGIS) 10-10 MG PER TABLET Day 1: Take 2 tablet before bed. Day 2: If still having nausea and vomiting 2 tablet bed. Day 3 take 1 tablet in am and 2 tablet at bed ONDANSETRON 4 MG DISINTEGRATING TABLET Take 1 tablet by mouth every 12 (twelve) hours as needed for Nausea and Vomiting (N/V). VITAMIN W/FA TABLET Take 1 tablet by mouth in the morning. START taking Modified Medications as Prescribed No medications on file STOP taking these medications ACETAMINOPHEN-CODEINE 300-30 MG TABLET Take 1 tablet by mouth every 6 (six) hours as needed for Pain (scale 7-10) for up to 7 days. Indications: acute pain HYDROCODONE-ACETAMINOPHEN 7.5-325 MG PER TABLET TAKE 1 TABLET BY MOUTH EVERY 4 HOURS FOR PAIN KETOROLAC 10 MG TABLET Take 1 tablet by mouth every 8 (eight) hours as needed. PROMETHAZINE 25 MG TABLET Take 1 tablet by mouth every 6 (six) hours as needed for Nausea and Vomiting (N/V). TRINATAL RX 1 60 MG IRON-1 MG TABLET Take 1 tablet by mouth every morning. Follow-up:Electronically signed by: Clary Richmond, [facility]01/08/23 1332 ssociated attestation - Jessica Torres DO - 01/09/2023 8:17 AM CDT I was personally available for consultation in the Emergency Department during this Patient evaluation/encounter. I have no professional relationship with this patient and did not establish a patient-doctor relationship with them. I am only administratively signing the chart. Jessica Torres [facility] Emergency Lqmypzqq62121-2Vwoluxyks Emergency department [id number], Whitney1.2.840.418635.1.13.104.2.7.2. 080507KbvotraljAywwgtdDH1492-08-62A37 :17:34Physician Emergency department NoteTXT1.2.840.497761.1.13.104.2.7.2. 686987|[id number] for patient [address] Kti[id number] AMVBBKYLUWRGLSDAZJSYI5033-96-85H69:17 :341.2.840.020656.1.72.3.15|1.2.840.1 19183.1.13.104.2.7.2.727879_[id number] 0 [facility] 2023-01-06 08:07:30 0fY4MKr5Z3FJKKIMeISIwwzTkmONLaDU3VdKI TQxHCw/axWQEyDLma/ZRzf+RDCL0883-32-53 T08:07:30 Name/ MRN / Age / Gender:Eduar Raya, [id number] year old female BMI:Estimated body mass index is 31.36 kg/m? as calculated from the following: Height as of 01/04/23: 1.702 m (5' 7"). Weight as of 01/04/23: 90.8 kg (200 lb 3.2 oz). Allergies:Iodine Last Vitals:BP Readings from Last 1 Encounters: 01/04/23 110/71 Pulse Readings from Last 1 Encounters: 01/04/23 73 SpO2 Readings from Last 1 Encounters: 01/02/23 100% Date of Surgery: 01/11/2023Surgeon: Bandar Baca MDProcedure: DILATION AND CURETTAGE (Vagina)OR Location: [facility] OR MELANIEAnesthesia Preop Screen (no physical exam)Copied forward and updated from: 09/27/2022 Anesthesia Preop: Chart Review and Phone PreopAPAC questionnaire answers incorporatedAPAC Communication: Patient came to ED at [facility]. Ate @ 10 am full meal. History of previous blood transfusion. Pending urgency from surgeon to determine time of surgery. Severo Pickett MD 01/08/2023 12:11 PM LM- Chart review only. Pt reports anesthesia complications on questionnaire, called to assess. 27 year old with concern for molar vs SAB. D&C for 01/11/[address] Baca. Returned pt call, Spoke with pt to complete [facility] eval. All questions answered and [facility] evaluation updated. Ese Puga RN 01/06/2023 12:17 PMPONV Risk Factors: female, non-smoker and post-op opiate use anticipatedPONV Risk Score: 3Anesthesia History(+) Hx of anesthetic complications (PT REPORTS PONV)(+) Hx of PONV(-) Fam hx of anesthetic complications(-) Hx of malignant hyperthermia(-) Pt reports no hx of difficult airway(+) Hx of difficult IV access ( has needed US and juan finder in the past per pt )Previous Anesthetics/AirwaysAdditional Comments: 09/27/2022: ETT 7.0, cuffed, DLx1, oral, MAC #3, GI-FVOG. CardiovascularComments: 11/15/2019 EKGNormal sinus rhythmPossible Anterior infarct age undeterminedAbnormal ECGWhen compared with ECG of 19-OCT-2019 05:02,No significant change has occurredMETS: 5-6METS Comments: Pt reports she is able to walk 1-2 blocks w/o cp/sob as well as climb stairs w/o cp/sob. PT does all ADL's and housework w/o cp/sob. Denies SOB w/ laying flat and BLE swelling. (-) Chest pain with 1-2 flights of stairs(-) Patient reports cardiac eval within past 5 years(+) Hypertension(-) No Hx of echocardiogram within past 5 Years(-) Echocardiogram results(-) Hx of cardiac stress test(-) Hx of cardiac cath(-) Recent EKG(-) Angina/Chest Pain Within Last Year(-) Patient does not report prior MN(-) CAD(-) Valvular problems/murmurs(-) Dysrhythmias(-) Pt reports prior cardiac surgery(-) No cardiovascular devices present(-) CHF Pulmonary(+) Patient reports snoring or stopping breathing during sleep ( snores)(-) Sleep apnea(-) Home O2(-) COPD(+) Asthma(-) ED/Hospitilized in the last yearFrequency of inhaler/nebulizer use: As needed Atleast once a day(-) Shortness of breath(-) Tobacco use(-) Smokeless tobacco use(-) Cigarette use(-) Vaping use(-) COVID-19 within the past 6 weeks ( 4 xs most recent 1.5 yrs ago recovered at home all times)(-) Influenza within the past 6 weeks(-) Pneumonia within the last 6 weeks(-) Recent bronchitis or URI Neuro/MusculoskeletalComments: Back pain with right-sided sciatica MRI cervical spine and MRA brain:Central disc protrusions at T5-T6 and T6-T7 indenting the ventral thoracic cord but not resulting in significant spinal canal stenosis.?The cervical, thoracic and lumbar spines are otherwise unremarkable. No high-grade spinal canal stenosis or neural foraminal narrowing.(-) CVA(-) Seizures(+) Psychiatric history ( PTSD) and depression and other(+) Anxiety(-) Neuromuscular Disease(-) Positioning limitations(+) Obesity GI/Hepatic(+) GERD and can lay flat without symptoms(-) PUD(-) Hepatitis(-) Liver disease HematologyComments: 01/04/23 WBC x10^3: 7.53RBC x10^6: 4.34HGB: 12.2HCT: 38.7PLT x10^3: 367 (H)09/26/22 PROTIME: 11.7 (L)PT INR: 0.907 ABO & RH: A PositiveIAT: Negative(+) Anemia(+) PE/DVT ( 1 yrs ago after gall bladder removal in [place] now per pt ) and upper/lower extremity(-) pulmonary(+) Prior blood transfusion(-) Not on anti-coagulant therapy(+) Patient accepts blood transfusion RenalComments: 01/01/23 NA: 136K: 5.0CL: 101CO2 TOTAL: 25AGAP: 10BUN: 9GLUCOSE: 81CREATININE: 0.46 (L)eGFR: 160.6(-) Patient reports no kidney problems(-) Renal disease(-) Dialysis(-) Nephrolithiasis SkinNegative Skin ROS(-) Rash Endo/Other Negative Endo/Other ROS(-) Diabetes Mellitus(-) Hyperthyroidism(-) Hypothyroidism(-) Steriod use Other (-) Tobacco use(-) Smokeless tobacco use(-) Cigarette use(-) Vaping use(+) Alcohol use ( on occassion, liquor and beer on occassions)(+) Drug use (marijuana use pt denies)(-) HIV OB/GYNComments: Cc: Molar (+) Ovarian cyst leftS/p DILATION AND CURETTAGE 09/27/2022 01/01/2023 ER for vaginal bleeding 9 weeks. ER course: US today--IUP with 8 week gestational sac, no pole, +clots. DX Vaginal bleeding in , first trimester, Missed . , f/u OB/Clinic in 2-3 days to discuss further care and options.?P: 4Prior c-sections: > 4 PediatricPediatric N/A NeonatalNeonatal N/A Preoperative Medication InstructionsContinue taking all prescribed medications except:TONY inhibitors, ARBs, diuretics, all oral diabetes medicationsAnticoagulant Therapy: Defer to surgeonsInsulin: Take 1/2 dose the night prior to surgery. Hold on DOS. Phentermine: Alert [facility] anesthesiologistSGLT2 Inhibitors: "gliflozins" to be held for 3 days prior to elective surgeries MAC Cases: Continue taking TONY inhibitors and ARBs ASA ClassificationASA: 2 Current Medications:No current facility-administered medications for this encounter. Current Outpatient Medications Medication Sig Dispense Refill HYDROcodone-acetaminophen 7.5-325 mg per tablet TAKE 1 TABLET BY MOUTH EVERY 4 HOURS FOR PAIN ketorolac 10 mg tablet Take 1 tablet by mouth every 8 (eight) hours as needed. TRINATAL RX 1 60 mg iron-1 mg tablet Take 1 tablet by mouth every morning. acetaminophen-codeine 300-30 mg tablet Take 1 tablet by mouth every 6 (six) hours as needed for Pain (scale 7-10) for up to 7 days. Indications: acute pain 15 tablet 0 ondansetron 4 mg disintegrating tablet Take 1 tablet by mouth every 12 (twelve) hours as needed for Nausea and Vomiting (N/V). 6 tablet 0 doxylamine-pyridoxine, vit B6, (DICLEGIS) 10-10 mg per tablet Day 1: Take 2 tablet before bed. Day 2: If still having nausea and vomiting 2 tablet bed. Day 3 take 1 tablet in am and 2 tablet at bed 200 tablet 3 vitamin w/FA tablet Take 1 tablet by mouth in the morning. 90 tablet 2 proMETHazine 25 mg tablet Take 1 tablet by mouth every 6 (six) hours as needed for Nausea and Vomiting (N/V). 30 tablet 0 Previous Surgeries: Past Surgical History: Procedure Laterality Date SECTION Dr Aragon SECTION N/A 09/24/2016 Surgeon: Joe Martino MD; Location: [facility] Labor and Delivery OR Location SECTION N/A 03/08/2018 Surgeon: Gloria Atkins; Location: Labor and Delivery - [place] CHOLECYSTECTOMY 2021 DILATION AND CURETTAGE (SHX) 2010 Both (Dr Martino) DILATION AND CURETTAGE (SHX) N/A 09/27/2022 Surgeon: Gillian Reno MD; Location: [facility] OR LOCATION TONSILLECTOMY WITH ADENOIDECTOMY Age 2 Anesthesia Physical ExamGeneralno apparent distress and alert and oriented x 3 Neuro/Psychneurological Dentalpoor dentition Abdominal GI exam normal Airway Mallampati score:IITM distance:> 5 cmMouth opening:normal Extremity Pulmonarypulmonary exam normal Other Cardiovascularcardiovascular exam normal Anesthesia Plan ASA Status: 2 Plan discussed during pre-op evaluation: GeneralAnesthetic plan on DOS: GeneralPlan to include: IV induction, RSI and cricoid pressureAnesthesia plan discussed with: patient or representativePost-Operative Analgesia: routine analgesia & antiemeticsRecovery Plan: PACUAdditional comments: [id number] Preoperative evaluation and management [id number]:12:16Anesthesiolo gy Preoperative evaluation and management [id number] for patient careAN-ANESTHESIOLOGY ANESTHESIOLOGISTAN-ANESTHESIOLOGY ANESTHESIOLOGIST[address] Harvey [id number]:12 :[id number] 6 AN-ANESTHESIOLOGY ANESTHESIOLOGIST [facility] 2022-12-17 04:46:00 [id number]:46:00 [facility])EMERGENCY PROVIDER REPORTREPORT#:[id number] REPORT STATUS: SignedDATE:12/17/22 TIME:445 PATIENT: EDUAR RAYA UNIT #: [id number]#: [id number] ROOM/BED:: 93 AGE: 27 SEX: F PCP PHYS: No Primary or Family PhysicianSERVICE AUTHOR: Gurmeet Teran MD * ALL edits or amendments must be made on the electronic/computer document * Gurmeet Montero 12/17/22 0446:HPI- Female Free Text HPI NotesFree Text HPI [id number] female at unknown gestation presents to the emergency department with about an hour and a half of pelvic cramping associated with bright red vaginal bleeding with some passing of clots. Patient states she has irregular periods her last menses was in October. She states she found out she was last week. Patient has not had an official appointment with OB yet. Patient arrives awake and alert in no acute distress. Patient denies vaginal discharge, nausea vomiting diarrhea. GeneralInitial Greet Date/Time 12/17/22 0417 PresentationChief Complaint Pelvic pain, Vaginal bleedingHx Obtained From Patient)( Sudden in Onset? No Risk- Female Risk StratificationEctopic Risk factors reviewed Review of Systems ROS StatementsAll systems rev neg except as marked. Focused Review of SystemsConstitutionalDenies: Chills, Fever, Lethargy. GIDenies: Abdominal pain, Diarrhea, Nausea, Vomiting. FemaleReports: Pelvic pain, , Vaginal bleeding - abnl. Denies: Dysuria, Flankpain. MusculoskeletalDenies: Back pain, Extremity pain. EndocrineDenies: Polyuria, Weight loss. SkinDenies: Diaphoresis, Rash. NeurologicDenies: Change LOC, Dizziness, Focal weakness, Headache, Numbness, Slurred speech. Past Medical History - AdultStated Complaint , BLEEDING, STOMACH PAINAllergiesCoded Allergies:No Known Allergies (12/17/22) Calculated Suicide Risk (nurs) No riskSmoking status for patients 13 years old or older: Never Smoker Physical Exam Vital SignsReview of Vital Signs Reviewed Focused PEGeneral/Const General/Const Awake, Alert, Well appearingResp/Chest Respiratory/Chest Breath sounds NL, Breath sounds = bilat, No respiratory distress, No rales, No rhonchi, No wheezingCardiovascular Cardiovascular Heart rate NL, Regular rhythm, Heart sounds NL, Peripheral circulation NLAbdomen/GI Abdomen/GI Soft, No guarding, No rebound Text/Dict NotesMild diffuse pelvic tenderness to palpation no rebound or guarding MS Back Back Inspection NL, Non-tender, No CVA tendernessSkin Skin Color NL, No rash, Warm, Dry, Turgor NLGenitourinary General Exam deferred Patient Discharge Departure Pt/Provider Handoff Shift Change NoteThis patient's care has been transferred to the incoming physician. We discussed: the patient's chief complaint; labs and imaging that have been completed and those that are still pending; procedures that have been completed and those remaining to be done; any treatment provided and the patient's response to treatment; input from consultants (if any); the remaining treatment plan. The incoming physician will follow up on all pending labs and imaging, make any necessary changes to the current impression and/or treatment plan and provide a final disposition. Care Transferred to. [facility] Transferred at 0700 Saad Valdovinos 12/17/22 0918:Physical Exam Vital SignsVital SignsFirst Documented: Result Date Time Pulse Ox 100 12/17 0417 B/P 122/95 12/17 0417 B/P Mean 104 12/17 041 O2 Delivery Room air 12/17 416 Temp 36.5 12/17 416 Pulse 96 12/177 Resp 17 12/17 416 Last Documented: Result Date Time Pulse Ox 100 12/18 939 B/P 124/84 12/18 939 B/P Mean 97 12/18 939 O2 Delivery Room air 12/18 939 Pulse 82 12/18 939 Resp 16 12/18 939 Temp 36.5 12/17 05 Interpretation Diagnostics Lab Results InterpretationResultsLaboratory Tests 12/17/22448:[Embedded Image Not Available]Laboratory Tests: 12/17 448 Chemistry Sodium (134 - 147 mmol/L) 133 L Potassium (3.4 - 5.0 mmol/L) 5.5 H Chloride (100 - 108 mmol/L) 105 Carbon Dioxide (21 - 32 mmol/L) 24 Anion Gap (4.0 - 15.0 GAP calc) 4.0 BUN (7 - 18 MG/DL) 5 L Creatinine (0.6 - 1.0 MG/DL) 0.6 Glomerular Filtr Rate (>60 estGFR) >=60 max estimate Glucose (70 - 110 MG/DL) 104 Calcium (8.5 - 10.1 MG/DL) 8.7 Total Bilirubin (0.2 - 1.2 MG/DL) 0.30 AST (15 - 37 Unit/L) 55 H ALT (12 - 78 Unit/L) 26 Total Alk Phosphatase (45 - 117 Unit/L) 97 Total Protein (6.4 - 8.2 G/DL) 8.1 Albumin (3.4 - 5.0 G/DL) 3.3 L Globulin (GM/dL) 4.8 Albumin/Globulin Ratio (1.2 - 2.2 RATIO) 0.7 L Hematology WBC (3.5 - 11.0 K/mm3) 11.6 H RBC (4.70 - 6.10 M/mm3) 4.31 L Hgb (10.4 - 14.9 G/DL) 12.2 Hct (31.5 - 44.1 %) 38.6 MCV (84.5 - 98.6 Fl) 89.6 MCH (27.0 - 34.2 pg) 28.3 MCHC (31.5 - 34.0 G/DL) 31.6 RDW (11.5 - 14.5 SD) 13.0 Plt Count (150 - 450 K/mm3) 347 MPV (7.0 - 10.5 fL) 10.40 Neut % (Auto) (40 - 76 %) 74.8 Lymph % (Auto) (20.5 - 51.1 %) 17.5 L Slope % (Auto) (1.7 - 9.3 %) 6.6 Eos % (Auto) (0.0 - 6.0 %) 0.5 Baso % (Auto) (0.0 - 2.0 %) 0.3 Neut # (Auto) (1.8 - 7.6 K/mm3) 8.7 H Lymph # (Auto) (0.6 - 3.2 K/mm3) 2.0 Slope # (Auto) (0.3 - 1.1 K/mm3) 0.8 Eos # (Auto) (0.0 - 0.4 K/mm3) 0.1 Baso # (Auto) (0.0 - 0.1 K/mm3) 0.0 Abs Immat Gran (auto) (0.00 - 0.03 x10 3/uL) 0.04 H Add Manual Diff (CRITERIA DIFF/SCN) NO Immature Gran % (0.0 - 5.0 %) 0.3 Nucleated RBC % (0.0 - 1.0 /100WBC%) 0.0 Miscellaneous Maternal Serum HCG (0 - 6 mi-IU/ML) 52893 H Re-Evaluation MDM Re-Evaluation/ProgressRe-Evaluation/P rogress Time of Re-Eval 0918 Re-Eval Status Improved ED CourseMedication(s) OrderedMedication(s) Ordered:Central Nervous System Agents Sig/Kelsi Start time Last Medication Dose Route Stop Time Status Admin Hydrocodone Bitart/ 2 TAB X1ED STA 12/17 0828 DC 12/17 Acetaminophen PO 12/17 928 0935 Ketorolac 15 MG X1ED STA 12/17 0927 DC 12/17 Tromethamine IV 12/18 927 0935 Acetaminophen 1,000 MG X1ED STA 12/17 0433 DC PO 12/17 0434 Electrolytic, Caloric, And Heather Sig/Kelsi Start time Last Medication Dose Route Stop Time Status Admin Lactated Ringer's 1,000 ML X1ED STA 12/17 0432 DC 12/17 IV 12/17 0532 0456 Free Text MDM NotesFree Text MDM NotesSigned out to me with plan for disposition after ultrasound. Patient was found to have a failed . 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 She statesthat she has needed surgical evacuation every time. She categorically declines medical management given prior experiences. She does not want me to speak to [employer]AND LEASE INFORMATION CLERK consult, and prefers immediate discharge with outpatient management with her longstanding [employer]AND LEASE INFORMATION CLERK. Differential diagnosis includes but is not limited to the following diagnoses- Ectopic, , threatened miscarriage- Perforated gastric ulcer- Pancreatitis, DKA- SBO, volvulus, intestinal ischemia- Cholangitis, acute cholecystitis- Appendicitis, diverticulitis- Pyelonephritis, nephrolithiasis, torsion- Anterior Cutaneous Nerve Entrapment Syndrome Conversation with Qualified Health Professional: I discussed the case with radiology who notified me of the failed Patient Discharge Departure Vital Signs/ConditionVital SignsFirst Documented: Result Date Time Pulse Ox 100 12/17 0417 B/P 122/95 12/17 0417 B/P Mean 104 12/17 0417 O2 Delivery Room air 12/17 0417 Temp 36.5 12/17 0417 Pulse 96 12/17 0417 Resp 17 12/17 0417 Last Documented: Result Date Time Pulse Ox 100 12/17 0940 B/P 124/84 12/17 0940 B/P Mean 97 12/17 0940 O2 Delivery Room air 12/17 0940 Pulse 82 12/17 0940 Resp 16 12/17 0940 Temp 36.5 12/17 0526 All vital signs available at the time of this entry have been reviewed. Clinical ImpressionClinical ImpressionPrimary Impression: Miscarriage Disposition DecisionDischarge )( Discharged to Home Yes )( Time 926 )( Date 12/17/22 Discharge/Care PlanCounseled Regarding Diagnosis, Lab results, Imaging studies, Need for follow-up,When to return to [facility] Drug Database Reviewed Yes(Auto) PrescriptionsCurrent Visit ScriptsKETOROLAC (TORADOL) 10 MG PO Q8H PRN PRN PAIN KETOROLAC (TORADOL) 10 MG PO Q8H PRN PRN PAIN #15 TABS HYDROcodone/APAP (HYDROcodone/APAP 7.5/325) 1 TAB PO Q4H HYDROcodone/APAP (HYDROcodone/APAP 7.5/325) 1 TAB PO Q4H #15 TABS Patient Instructions ED Miscarriage SpontaneousAdditional InstructionsAs we discussed, you had a miscarriage. You wanted to follow-up as an outpatient with your [employer]AND LEASE INFORMATION CLERK doctor. Fortunately, there is no evidence of a dangerous cause/complications that require further testing/treatment in the ER or hospital at this time. Please return for any concerns including new, worsening, or persistent symptoms and follow up with your doctor. at 0930 at 1607 RPT #: [id number] OF REPORTEDEmergency department [id number]:46:00L.[id number] for patient [id number]:31:00 HCAPM
--- NOTE | 2023-08-26 19:47 | RAD REPORT ---
EXAM DESCRIPTION: CT - Head Brain Wo Cont - 08/26/2023 7:12 pm CLINICAL HISTORY: HEADACHE COMPARISON: No comparisons TECHNIQUE: Noncontrast head CT images were obtained without IV contrast. Multiplanar reformats were generated and reviewed. All CT scans are performed using dose optimization technique as appropriate and may include automated exposure control or mA/KV adjustment according to patient size. FINDINGS: No intracranial hemorrhage, mass, or edema. Midline structures are unremarkable. Normal ventricular caliber for age. Gro[place]-white matter differentiation is preserved, without evidence of acute infarct. No abnormal extra- axial fluid collections. Mastoid air cells and visualized portions of the paranasal sinuses are clear. No acute bony findings. IMPRESSION: No evidence of an acute intracranial process.
--- NOTE | 2023-08-26 20:19 | EDPHYS ---
Physician Documentation [facility] Name: Elba Wells Age: 28 yrs Sex: Female : 1995 Arrival Date: 08/26/2023 Time: 15:17 Bed 20 Private MD: ED Physician Bg Chatterjee HPI: 08/25 16:19 This 28 yrs old Female presents to ER via Ambulatory with complaints of ms3 Headache, Shoulder Pain. 16:19 28-year-old female with past medical history of migraines, anemia, asthma, lupus, ms3 rheumatoid arthritis presents to the emergency department for headache that began on Wednesday. Patient states the pain is a 10/10. Patient also notes she is having right-sided neck pain. Patient denies any alleviating factors. Patient states noise and light make her headache worse. . 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 - Social history:: Smoking status: Patient denies any tobacco usage or history of. ROS: 16:19 Constitutional: Negative for fever, and chills. Neck: Negative for injury, pain, and ms3 swelling, Cardiovascular: Negative for chest pain, and palpitations. Respiratory: Negative for shortness of breath, cough, wheezing, and pleuritic chest pain, Abdomen/GI: Negative for abdominal pain, nausea, vomiting, diarrhea, and constipation, MS/Extremity: Negative for injury and deformity, Skin: Negative for injury, rash, and discoloration, 16:19 MS/extremity: Positive for 16:19 Neuro: Positive for headache, Exam: 16:22 Constitutional: This is a well developed, well nourished patient who is awake, alert, ms3 and in no acute distress. Head/Face: Normocephalic, atraumatic. Chest/axilla: Normal chest wall appearance and motion. Nontender with no deformity. Cardiovascular: Regular rate and rhythm with a normal S1 and S2. No gallops, murmurs, or rubs. Normal PMI, no JVD. No pulse deficits. Respiratory: Lungs have equal breath sounds bilaterally, clear to auscultation and percussion. No rales, rhonchi or wheezes noted. No increased work of breathing, no retractions or nasal flaring. Abdomen/GI: Soft, non-tender, with normal bowel sounds. No distension or tympany. No guarding or rebound. No evidence of tenderness throughout. 16:22 Neck: External neck: tenderness, that is moderate, of the right mid cervical area, 19:52 ECG was reviewed by the Attending Physician. ms3 Vital Signs: 15:24 BP 127 / 81; Pulse 77; Resp 17; Temp 98.9(O); Pulse Ox 100% ; Weight 99.79 kg; Height 5 kd3 ft. 7 in. ; Pain 9/10; 16:30 BP 83 / 59; Pulse 68; Resp 16; Pulse Ox 100% on R/A; me1 17:30 BP 102 / 76; Pulse 55; Resp 14; Pulse Ox 100% on R/A; me1 17:45 BP 106 / 76; Pulse 81; Resp 16; Pulse Ox 98% on R/A; me1 19:45 BP 108 / 64; Pulse 74; Resp 18; Pulse Ox 99% ; me1 20:00 BP 110 / 74; Pulse 72; Resp 18; Pulse Ox 99% on R/A; me1 20:09 Pain 5/10; me1 20:30 BP 114 / 70; Pulse 70; Resp 18; Pulse Ox 97% on R/A; me1 15:24 Body Mass Index 34.46 (99.79 kg, 170.18 cm) kd3 15:24 Pain Scale: Adult kd3 20:09 Pain Scale: Adult me1 MDM: 16:22 Differential diagnosis: migraine, tension headache. ms3 16:23 Patient medically screened. ms3 19:35 Independent interpretation of the following test(s) in the Emergency Department CT ms3 Scan: My interpretation is CT Head without contrast images reviewed by me does not reveal ICH. 20:14 Transition of care: After a detail discussion of the patient's case, care is ms3 transferred to Tom Etienne MD. 20:22 Data reviewed: vital signs, nurses notes, radiologic studies, and as a result, I will ms3 discharge patient. I considered the following discharge prescriptions or medication management in the emergency department Medications were administered in the Emergency Department. See MAR. Counseling: I had a detailed discussion with the patient and/or guardian regarding the historical points, exam findings, and any diagnostic results supporting the discharge/admit diagnosis, radiology results, the need for outpatient follow up, to return to the emergency department if symptoms worsen or persist or if there are any questions or concerns that arise at home. Special discussion: I discussed with the patient/guardian in detail that at this point there is no indication for admission to the hospital. It is understood, however, that if the symptoms persist or worsen the patient needs to return immediately for re-evaluation. ED course: On reevaluation patient improved, alert and orient x 4, no apparent distress, nontoxic-appearing, speaking full sentences. Patient to follow-up with Dr. Hartley on Wednesday. Patient understands and agrees with plan. All questions were answered. Return precautions discussed include worsening symptoms, altered mental status, nausea, vomiting, or any other concerns.. 08/25 18:56 Order name: CT Head Brain wo Cont; Complete Time: 19:51 ms3 08/25 18:23 Order name: EKG; Complete Time: 18:24 ms3 08/25 18:23 Order name: EKG - Nurse/Tech; Complete Time: 19:47 ms3 EC:52 Rate is 73 beats/min. Rhythm is regular. QRS [place] is Normal. [place] interval is normal. QRS ms3 interval is normal. Clinical impression: Normal ECG. Interpreted by me. Reviewed by me. Administered Medications: 16:55 Drug: diphenhydrAMINE IVP 25 mg IVP once Route: IVP; Site: left antecubital; me1 18:00 Follow up: Response: No adverse reaction; Pain is unchanged, physician notified me1 16:55 Drug: Decadron - Dexamethasone IVP 10 mg IVP once Route: IVP; Site: left antecubital; me1 17:00 Follow up: Response: Other; c/o itching after dexamethasone was administered. Informed me1 Dr Chatterjee. Rec'd another dose of Benadry 25 mg IV. 18:00 Follow up: Response: No adverse reaction; Pain is unchanged, physician notified me1 16:55 Drug: NS 0.9% IV 1000 ml IV at 1 bolus Per protocol; 1000 mL bolus Route: IV; Rate: 1 me1 bolus; Site: left antecubital; 18:00 Follow up: Response: No adverse reaction; IV Status: Completed infusion me1 16:55 Drug: Ketorolac IVP 10 mg 10 mg IVP once Route: IVP; Site: left antecubital; me1 18:00 Follow up: Response: No adverse reaction; Pain is unchanged, physician notified me1 16:56 Drug: metoCLOPramide IVP 10 mg IVP once; over 1 to 2 minutes Route: IVP; Site: left me1 antecubital; 17:59 Follow up: Response: No adverse reaction; Pain is unchanged, physician notified me1 17:01 Drug: diphenhydrAMINE IVP 25 mg IVP once Route: IVP; Site: left antecubital; me1 18:01 Follow up: Response: No adverse reaction; Marked relief of symptoms me1 19:52 Drug: Haloperidol IVP 5 mg IVP once; Only Give if EKG does not show QT Prolongations me1 Route: IVP; Site: left antecubital; 20:09 Follow up: Pain 5/10 Adult; Response: No adverse reaction; Pain is decreased me1 Disposition Summary: 08/26/23 20:18 Discharge Ordered Notes: Location: Home ms3 Condition: Stable ms3 Diagnosis - Migraine without aura, not intractable ms3 Followup: ms3 - With: Mickey Hartley MD - When: 2 - 3 days - Reason: Recheck today's complaints Discharge Instructions: - Discharge Summary Sheet ms3 - Migraine Headache ms3 Forms: - Medication Reconciliation Form ms3 - Thank You Letter ms3 - Antibiotic Education ms3 - Prescription Opioid Use ms3 - Patient Portal Instructions ms3 - Leadership Thank You Letter ms3 Signatures: Dispatcher [employer] Bg Collado DO DO ms3 Macarena Zavala RN RN 3 Lizette Stone RN RN me1
--- NOTE | 2023-08-26 20:19 | ER ---
Nurse's Notes [facility] Name: Elba Wells Age: 28 yrs Sex: Female : 1995 Arrival Date: 08/26/2023 Time: 15:17 Bed 20 Private MD: Diagnosis: Migraine without aura, not intractable Presentation: 08/25 15:26 Coronavirus screen: Vaccine status: Patient reports being unvaccinated. Ebola Screen: kd3 No symptoms or risks identified at this time. Initial Sepsis Screen: Does the patient meet any 2 criteria? No. Patient's initial sepsis screen is negative. Does the patient have a suspected source of infection? No. Patient's initial sepsis screen is negative. Risk Assessment: Do you want to hurt yourself or someone else? Patient reports no desire to harm self or others. Onset of symptoms was August 26, 2023. 15:26 Method Of Arrival: Ambulatory kd3 15:28 Chief complaint: Patient states: I have a history of migraines and i am having a kd3 similar episode to those that i have had in the past but now my left shoulder has been hurting and my neck. My medicine is not helping this one go away. 15:28 Acuity: CED 3 kd3 Triage Assessment: 15:26 Headache History: The patient has had previous headaches and this one is similar to kd3 previous episodes. General: Appears in no apparent distress. Behavior is calm, cooperative. Pain: Complains of pain in head and left shoulder and neck. Pain: Pain currently is 9 out of 10 on a pain scale. Pain began gradually, Also complains of nausea. Neuro: Level of Consciousness is awake, alert, obeys commands, Oriented to person, place, time, situation. 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 - Social history:: Smoking status: Patient denies any tobacco usage or history of. Screenin:40 [facility] ED Fall Risk Assessment (Adult) History of falling in the last 3 months, me1 including since admission No falls in past 3 months (0 pts) Confusion or Disorientation No (0 pts) Intoxicated or Sedated No (0 pts) Impaired Gait No (0 pts) Mobility Assist Device Used No (0 pt) Altered Elimination No (0 pt) Score/Fall Risk Level 0 - 2 = Low Risk Maintained a safe environment, Provided non-skid footwear, Hourly rounding (assess needs \T\ fall precautionary measures) done. Abuse screen: Denies threats or abuse. Nutritional screening: No deficits noted. Tuberculosis screening: No symptoms or risk factors identified. Assessment: 16:40 General: Appears uncomfortable, well groomed, well developed, well nourished, Behavior me1 is calm, cooperative, appropriate for age, Reports migraine headache that radiates down the left side of her neck. 9/10, sharp, throbbing. Pain: Complains of pain in head Pain radiates to right mid cervical area Pain currently is 9 out of 10 on a pain scale. Quality of pain is described as aching, sharp, shooting, Pain began gradually, Is continuous. Neuro: Level of Consciousness is awake, alert, obeys commands, Oriented to person, place, time, situation, Appropriate for age. Cardiovascular: Capillary refill < 3 seconds Patient's skin is warm and dry. Respiratory: Airway is patent Trachea midline Respiratory effort is even, unlabored, Respiratory pattern is regular, symmetrical. Vital Signs: 15:24 BP 127 / 81; Pulse 77; Resp 17; Temp 98.9(O); Pulse Ox 100% ; Weight 99.79 kg; Height 5 kd3 ft. 7 in. ; Pain 9/10; 16:30 BP 83 / 59; Pulse 68; Resp 16; Pulse Ox 100% on R/A; me1 17:30 BP 102 / 76; Pulse 55; Resp 14; Pulse Ox 100% on R/A; me1 17:45 BP 106 / 76; Pulse 81; Resp 16; Pulse Ox 98% on R/A; me1 19:45 BP 108 / 64; Pulse 74; Resp 18; Pulse Ox 99% ; me1 20:00 BP 110 / 74; Pulse 72; Resp 18; Pulse Ox 99% on R/A; me1 20:09 Pain 5/10; me1 20:30 BP 114 / 70; Pulse 70; Resp 18; Pulse Ox 97% on R/A; me1 15:24 Body Mass Index 34.46 (99.79 kg, 170.18 cm) kd3 15:24 Pain Scale: Adult kd3 20:09 Pain Scale: Adult me1 ED Course: 15:20 Patient arrived in ED. mg5 15:26 Arm band placed on left wrist. kd3 15:27 Bg Chatterjee DO is Attending Physician. ms3 15:29 Triage completed. kd3 16:26 Lizette Stone, RN is Primary Nurse. me1 16:40 Patient has correct armband on for positive identification. Bed in low position. Call me1 light in reach. Side rails up X2. Provided Education on: POC. Verbalized understanding. 16:40 No provider procedures requiring assistance completed. me1 16:45 Warm blanket given. me1 16:55 Inserted saline lock: 22 gauge in left antecubital area, using aseptic technique. me1 19:14 CT Head Brain wo Cont In Process Unspecified. EDMS 19:52 EKG done, by ED staff, reviewed by Bg Chatterjee DO. me1 20:18 Mickey Hartley MD is Referral Physician. ms3 20:34 IV discontinued, intact, bleeding controlled, No redness/swelling at site. Pressure me1 dressing applied. Administered Medications: 16:55 Drug: diphenhydrAMINE IVP 25 mg IVP once Route: IVP; Site: left antecubital; me1 18:00 Follow up: Response: No adverse reaction; Pain is unchanged, physician notified me1 16:55 Drug: Decadron - Dexamethasone IVP 10 mg IVP once Route: IVP; Site: left antecubital; me1 17:00 Follow up: Response: Other; c/o itching after dexamethasone was administered. Informed me1 Dr Chatterjee. Rec'd another dose of Benadry 25 mg IV. 18:00 Follow up: Response: No adverse reaction; Pain is unchanged, physician notified me1 16:55 Drug: NS 0.9% IV 1000 ml IV at 1 bolus Per protocol; 1000 mL bolus Route: IV; Rate: 1 me1 bolus; Site: left antecubital; 18:00 Follow up: Response: No adverse reaction; IV Status: Completed infusion me1 16:55 Drug: Ketorolac IVP 10 mg 10 mg IVP once Route: IVP; Site: left antecubital; me1 18:00 Follow up: Response: No adverse reaction; Pain is unchanged, physician notified me1 16:56 Drug: metoCLOPramide IVP 10 mg IVP once; over 1 to 2 minutes Route: IVP; Site: left me1 antecubital; 17:59 Follow up: Response: No adverse reaction; Pain is unchanged, physician notified me1 17:01 Drug: diphenhydrAMINE IVP 25 mg IVP once Route: IVP; Site: left antecubital; me1 18:01 Follow up: Response: No adverse reaction; Marked relief of symptoms me1 19:52 Drug: Haloperidol IVP 5 mg IVP once; Only Give if EKG does not show QT Prolongations me1 Route: IVP; Site: left antecubital; 20:09 Follow up: Pain 5/10 Adult; Response: No adverse reaction; Pain is decreased me1 Medication: 16:40 VIS not applicable for this client. me1 Intake: Outcome: 20:18 Discharge ordered by . ms3 20:34 Discharged to home ambulatory, with significant other, me1 20:34 Condition: stable 20:34 Discharge instructions given to patient, significant other, Instructed on discharge instructions, follow up and referral plans. Demonstrated understanding of instructions, follow-up care, 20:34 Patient left the ED. me1 Signatures: Dispatcher [employer] Bg Collado DO DO ms3 Macarena Zavala RN RN 3 Lizette Stone RN RN me1 Janny Martins mg5
[2023-08-26 21:09] VITALS: TEMP 98.9
[2023-08-26 21:41] VITALS: BP 114/70; O2SAT 97
== END ==
LOC: ER 15:17
DX: G43.009 Migraine without aura, not intractable, without status migrainosus (principal); Z91.041 Radiographic dye allergy status
CPT/HCPCS: 96361; 93005; 70450; 96375; 96374; 99284; J1630; J2765; J1200 ×2; J1100; J7030

== ENCOUNTER 2024-03-08 18:33 | Emergency (ER) | payer OTHER ==
--- OUTSIDE RECORDS SUMMARY | 2024-03-08 18:47 | XMS REPORT | Continuity of Care Document ---
Author Name Unknown Address [address] [facility] [address] [place] [address] [facility] thconnect Address [address] [facility] [address] [place] [address] Care Team Providers Care Engine Lathe Set Up Operator Name Role Phone THAIS MAIRN Primary Care Physician UnavailBANDAR Mckee Attending Clinician Unavailable LUANN DUMONT Attending Clinician Unavailable IRA SMITH Attending Clinician Unavailable LUDY BRIDGES Attending Clinician Unavail able Erik [facility] Att[facility] Clinician Unavail able Amadeo Cedeño CPhT Attending Clinician Unavailable Elieser, Lcc Attending Clinician Unavailable Luann Paige Attending Clinician [phone] Thais Foy Attending Clinician +[phone] Ira Felix Attending Clinician [phone] Domenica Ludwig CPhT Attending Clinician UnavailSandra Tee Attending Clinician [phone] Unknown, Attending Attending Clinician Unavailab SANDRA Sharp Attending Clinician Unavailab Wade Mulligan CPhT Attending Clinician Unavailable THAIS MARIN Attending Clinician Unavailable Doctor Unassigned, [place] Attending Clinician U gelacio Dotson [facility], Azalea Attending Clinician Unavailable Thais Foy Attending Clinician [phone] Lab, Ang - Db Attending Clinician Unavailable Ira Felix Attending Clinician [phone] Tawnya Maynard Attending Clinician [phone] Sacha Lowe MD Attending Clinician +[phone] Juan Reece DO Attending Clinician +[phone] Cyrus TONY, Ludy Lugo Attending Clinician [phone] PAIGE MELISSA Attending Clinician Unavailable Paige Melissa MD Attending Clinician [phone] LANCE GILMAN Attending Clinician UnavailLance Mcneal MD Attending Clinician [phone] TAWNYA GAN Attending Clinician Unavailable TAWANA JEAN Attending Clinician Unavaila BOB Moore Attending Clinician Unavailabl BOB Sweet Attending Clinician Unavailabl Laurie Julien OT A Attending Clinician Unavail able Bob Flores MD Attending Clinician [phone] BRONWYN WELLINGTON Attending Clinician Unavailable Bronwyn Wellington MD Attending Clinician +[phone] PETE OWENS Attending Clinician Unavail able [facility] Unava ilable Roman Pete CERON Attending Clinician + JOCY MICHAEL Attending Clinician Unavailab BOGDAN Almeida Attending Clinician Unavailable Lorena Kirk MD Attending Clinician +[phone] Jocy Michael DNP Attending Clinician + [phone] Lab, [facility] Attending Clinician Unavailable Juan Hernandez DO Attending Clinician +[phone] Unruly Tran MD Attending Clinician [phone] Doctor Unassigned, [place] Attending Clinician U Irene Mtz MD Attending Clinician [phone] Tawana Jean CNM Attending Clinician [phone] UNRULY TRAN Attending Clinician Unavailab JESSICA Be Attending Clinician Unavailab Jessica Be DO Attending Clinician [phone] IRENE MARI Attending Clinician Unavailable Unknown, Attending Attending Clinician Unavailab ROMULO Luna Attending Clinician Unavaila ROMULO Riggs Attending Clinician Unavaila regina Buck, [facility] Attending Clinician UnavailRomulo Casas MD Attending Clinician + [phone] CARLITO MORAN Attending Clinician Unavailable Carlito Moran MD Attending Clinician [phone] [facility] Resident Attending Clinician U LORENA Curry Attending Clinician Unavailable Albino ALEXANDRE, Shy Lucero Attending Clinician + [phone] Bandar Baca MD Attending Clinician [phone] Jose Craig MD Attending Clinician [phone] Pcp-Lab Attending Clinician Unavailable Pgy2 Attending Clinician Unavailable Alissa Leon MD Attending Clinician [phone] KEVIN PELLETIER Attending Clinician Unavaila KEVIN Pierre Attending Clinician Unavailmarlene pizarro [facility] Res-1st Attending Clinician Unavailable GAURAV JOHN Attending Clinician Unavailable Gaurav John MD Attending Clinician [phone] DEB BENAVIDEZ Attending Clinician Unavailab Deb Landa DO Attending Clinician +[phone] Mariajose Ramsey MD Attending Clinician +[phone] MARIAJOSE RAMSEY Attending Clinician Unavailable Clary Perez Attending Clinician +[phone] Ese Puga RN Attending Clinician UnavailSevero Burch MD Attending Clinicia n [facility] Attending Clinician Unavailable WILBUR WILSON Attending Clinician Unavailable WILBUR WILSON Attending Clinician Unavailable Lab, [facility] Attending Clinician Unavailable Wilbur Wilson MD Attending Clinician [phone] 1, [facility] Attending Clinician Unavailab juan j Kumar, Patient Does Not Have A Attending Clinician Karon Wesley Attending Clinician [phone] SANDHYA ARAYA Attending Clinician Unavailable SANDHYA ARAYA Attending Clinician Unavailable Rowdy TONY, Gillian Attending Clinician +[phone] Winifred James NP Attending Clinician +[phone] Juan Torres MD Attending Clinician +[phone] ARIANA CASTRO Attending Clinician Unavailable Ariana Leigh Attending Clinician [phone] Lab, [facility] Attending Clinician Unavailable Provider, [facility] Temp Attending Clinician Sharon WILBERT Evans Attending Clinician Unavailab CM Beckham Attending Clinician Unavailable WINIFRED JAMES Attending Clinician Unavailable SULEIMAN LOERA Attending Clinician Unavailable Suleiman Connell Attending Clinician [phone] LOUISE PRADO Attending Clinician Unavailable Wilbert Downey Attending Clinician + [phone] Louise Mcgovern Attending Clinician +[phone] Jamie Sanders Attending Clinician [phone] INOCENCIO Attending Clinician Unavailable JAMIE WALL Attending Clinician UnavailJAMIE López Attending Clinician UnavailSam John Attending Clinician +[phone] Lara Atkinson RN Attending Clinician Unavailable Juan Marshall DO Attending Clinician [phone] Radha Hawkins MD Attending Clinician +[phone] RADHA HAWKINS Attending Clinician UnavailSam Poe Attending Clinician Unavailable Luisa Logan Attending Clinician +[phone] LUISA MA Attending Clinician Unavailable Jessica Bob MD Attending Clinician +[phone] JESSICA BOB Attending Clinician Unavailable MANAN PÉREZ III Attending Clinician Unavaila Manan Fernandes Attending Clinician +[phone] BANDAR BACA Admitting Clinician Unavailable PAIGE MELISSA Admitting Clinician Unavailable JESSICA TORRES Admitting Clinician Unavailab CARLITO Lewis Admitting Clinician Unavailable LORENA KIRK Admitting Clinician Unavailable Lorena Kirk MD Admitting Clinician +[phone] GAURAV JOHN Admitting Clinician Unavailable DEB BENAVIDEZ Admitting Clinician Unavailab MARIAJOSE James Admitting Clinician Unavailable Mariajose Ramsey MD Admitting Clinician +[phone] JUAN TORRES Admitting Clinician Unavailable Juan Torres MD Admitting Clinician +[phone] ARIANA CASTRO Admitting Clinician Unavailable INOCENCIO Admitting Clinician Unavailable RADHA HAWKINS Admitting Clinician UnavailSam Poe Admitting Clinician Unavailable LUISA MA Admitting Clinician Unavailable JESSICA BOB Admitting Clinician Unavailable MANAN PÉREZ III Admitting Clinician Unavailmarlene pizarro Payers Payer Name Policy Type Policy Number Effective Date Expirati on Date Source [facility] [id number] 2022 00:00:00 [place] [id number] 2022 00:00:00 MEDICAID PENDING PENDING 2022 00:00:00 [facility] [id number] 2020 00:00:00 Problems Condition Name Condition Details Condition Category Status Onset Date Resolution Date Last Treatment Date Treating Clinician Comments Source Change in bowel habits Change in bowel habits Disease Active 03-01 00:00: 00 [facility] Diarrhea, unspecifie d type Diarrhea, unspecifie d type Disease Active 03-01 00:00: 00 [facility] Blood in stool Blood in stool Disease Active 03-01 00:00: 00 [facility] Epigastric pain Epigastric pain Disease Active 2024-0 9-11 00:00: 00 [facility] Dysphagia, unspecifie d type Dysphagia, unspecifie d type Disease Active 11 00:00: 00 [facility] Gastroesop hageal reflux disease, unspecifie d whether esophagiti s present Gastroesop hageal reflux disease, unspecifie d whether esophagiti s present Disease Active 03-01 00:00: 00 [facility] NSAID long-term use NSAID long-term use Disease Active 03-01 00:00: 00 [facility] Early satiety Early satiety Disease Active 03-01 00:00: 00 [facility] Flatulence , eructation , and gas pain Flatulence , eructation , and gas pain Disease Active 03-01 00:00: 00 [facility] Intractabl e chronic migraine with aura with status migrainosu s Intractabl e chronic migraine with aura with status migrainosu s Disease Active 905 00:00: 00 [facility] NADYA (obstructi ve sleep apnea) NADYA (obstructi ve sleep apnea) Disease Active 2022-06 2-31 00:00: 00 [facility] Status migrainosu s Status migrainosu s Disease Active 2022-06 1- 00:00: 00 [facility] Status post hysterosco py Status post hysterosco py Disease Active 2022-06 00:00: 00 [facility] Observed seizure-li ke activity Observed seizure-li ke activity Disease Active 2022-06 1-06 00:00: 00 [facility] Positive LAST (antinucle ar antibody) Positive LAST (antinucle ar antibody) Disease Active 2022-06 0- 00:00: 00 [facility] 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 Disease Active 2022-06 0-20 00:00: 00 [facility] Abnormal uterine bleeding Abnormal uterine bleeding Disease Active 2022-06 0-16 00:00: 00 [facility] Multiparit y Multiparit y Disease Active 6-23 00:00: 00 [facility] History of arthritis History of arthritis Disease Active 2-21 00:00: 00 [facility] Fibrocysti c breast disease (FCBD), unspecifie d laterality Fibrocysti c breast disease (FCBD), unspecifie d laterality Disease Active 2021-06 0-14 00:00: 00 [facility] Overweight (BMI 25.0-29.9) Overweight (BMI 25.0-29.9) Disease Active 2- 00:00: 00 [facility] Overweight Overweight Disease Active 2 00:00: 00 [facility] Anemia of mother in , antepartum Anemia of mother in , antepartum Disease Active 3- 00:00: 00 [facility] Depression , unspecifie d depression type Depression , unspecifie d depression type Disease Active 8- 00:00: 00 [facility] UTI (urinary tract infection) during UTI (urinary tract infection) during Disease Resolve d 6-24 00:00: 00 2023-07-01 00:00:00 2023-07-01 15:40:26 [facility] Obesity in Obesity in Disease Resolve d 6-23 00:00: 00 2023-07-01 00:00:00 2023-07-01 15:40:29 [facility] Previous delivery affecting , antepartum Previous delivery affecting , antepartum Disease Resolve d 6-23 00:00: 00 2023-07-01 00:00:00 2023-07-01 15:40:34 Overview: Formattin g of this note might be different from the original. x4 will need follow up usg at 28-30week s for placenta [facility] Spontaneou s Spontaneou s Disease Resolve d 0 7-21 00:00: 00 2023-05-11 00:00:00 2023-05-11 10:34:39 [facility] Molar Molar Disease Resolve d 0 7-17 00:00: 00 2023-05-11 00:00:00 2023-05-11 10:34:35 [facility] Susceptibl e to varicella (non-immun e), currently Susceptibl e to varicella (non-immun e), currently Disease Resolve d 0 6-26 00:00: 00 2023-05-11 00:00:00 2023-05-11 10:34:30 Overview: Formattin g of this note might be different from the original. Address pp [facility] Supervisio n of high-risk Supervisio n of high-risk Disease Resolve d 0 6-23 00:00: 00 2023-05-11 00:00:00 2023-05-11 10:34:25 [facility] Ovarian cyst, left Ovarian cyst, left Disease Resolve d 5-04 00:00: 00 2023-05-11 00:00:00 2023-05-11 10:34:19 [facility] Miscarriag e Miscarriag e Disease Resolve d 0 4-08 00:00: 00 2022-10-22 00:00:00 2022-10-22 16:41:49 [facility] Maternal varicella, non-immune Maternal varicella, non-immune Disease Resolve d 0 2-23 00:00: 00 2022-10-22 00:00:00 2022-10-22 15:24:37 [facility] Heartburn in Heartburn in Disease Resolve d 0 2-21 00:00: 00 2022-10-22 00:00:00 2022-10-22 15:24:32 [facility] History of gestationa l hypertensi on History of gestationa l hypertensi on Disease Resolve d 0 2-21 00:00: 00 2022-10-22 00:00:00 2022-10-22 15:24:34 [facility] Hx of maternal blood transfusio n, currently Hx of maternal blood transfusio n, currently Disease Resolve d 0 2-21 00:00: 00 2022-10-22 00:00:00 2022-10-22 15:24:35 [facility] Nausea and vomiting during Nausea and vomiting during Disease Resolve d 2022- 2-21 00:00: 00 2022-10-22 00:00:00 2022-10-22 15:24:38 [facility] Previous delivery affecting , antepartum Previous delivery affecting , antepartum Disease Resolve d 2017-0 2-01 00:00: 00 2022-10-22 00:00:00 2022-10-22 16:41:47 [facility] Obesity affecting Obesity affecting Disease Resolve d 2-01 00:00: 00 2022-10-22 00:00:00 2022-10-22 15:24:40 [facility] Anemia of mother in , antepartum Anemia of mother in , antepartum Disease Resolve d 3-02 00:00: 00 2022-10-22 00:00:00 2022-10-22 15:24:30 [facility] Anxiety and depression affecting Anxiety and depression affecting Disease Resolve d 2015-06 1-23 00:00: 00 2022-10-22 00:00:00 2022-10-22 16:41:52 [facility] Chronic anemia Chronic anemia Disease Resolve d 2-21 00:00: 00 2022-09-23 00:00:00 2022-09-23 20:28:40 [facility] Dysmenorrh ea Dysmenorrh ea Disease Resolve d 1 0-29 00:00: 00 2022-08-11 00:00:00 2022-08-11 16:01:02 [facility] History of breast pain History of breast pain Disease Resolve d 2021- 0-29 00:00: 00 2022-08-11 00:00:00 2022-08-11 16:01:11 [facility] Breakthrou gh bleeding on contracept debra patch Breakthrou gh bleeding on contracept debra patch Disease Resolve d 2021-1 0-29 00:00: 00 2022-08-11 00:00:00 2022-08-11 16:01:01 [facility] Irregular menstrual cycle Irregular menstrual cycle Disease Resolve d 2021-06 0-14 00:00: 00 2022-08-11 00:00:00 2022-08-11 16:01:09 [facility] Encounter for surveillan ce of transderma l patch hormonal contracept debra device Encounter for surveillan ce of transderma l patch hormonal contracept debra device Disease Resolve d 2021-06 0-13 00:00: 00 2022-08-11 00:00:00 2022-08-11 16:00:08 [facility] Need for HPV vaccinatio n Need for HPV vaccinatio n Disease Resolve d 1-07 00:00: 00 2022-08-11 00:00:00 2022-08-11 16:01:12 [facility] Blood transfusio n affecting Blood transfusio n affecting Disease Resolve d 3-01 00:00: 00 2022-08-11 00:00:00 2022-08-11 20:53:05 [facility] Anemia affecting in third trimester Anemia affecting in third trimester Disease Resolve d 2-23 00:00: 00 2022-08-11 00:00:00 2022-08-11 20:52:54 [facility] Pain of both breasts Pain of both breasts Disease Resolve d 2021-06 0-14 00:00: 00 2022-04-18 00:00:00 2022-04-18 12:17:21 [facility] Screening for malignant neoplasm of the cervix Screening for malignant neoplasm of the cervix Disease Resolve d 1 0-13 00:00: 00 2022-04-18 00:00:00 2022-04-18 12:17:39 [facility] Itching of vagina Itching of vagina Disease Resolve d 2021-0 5-24 00:00: 00 2022-04-18 00:00:00 2022-04-18 12:17:14 [facility] Dysuria Dysuria Disease Resolve d 5-24 00:00: 00 2022-04-18 00:00:00 2022-04-18 12:17:37 [facility] Class 2 obesity with body mass index (BMI) of 35.0 to 35.9 in adult, unspecifie d obesity type, unspecifie d whether serious comorbidit y present Class 2 obesity with body mass index (BMI) of 35.0 to 35.9 in adult, unspecifie d obesity type, unspecifie d whether serious comorbidit y present Disease Resolve d 1-07 00:00: 00 2022-04-18 00:00:00 2022-04-18 12:17:34 [facility] Screening examinatio n for STD (sexually transmitte d disease) Screening examinatio n for STD (sexually transmitte d disease) Disease Resolve d 2017-06 1 00:00: 00 2022-04-18 00:00:00 2022-04-18 12:17:28 [facility] BMI 35.0-35.9, adult BMI 35.0-35.9, adult Disease Resolve d 4-06 00:00: 00 2022-04-18 00:00:00 2022-04-18 12:17:24 [facility] Routine follow-up Routine follow-up Disease Resolve d 2017-06 00:00: 00 2018-04-26 00:00:00 2018-04-26 16:09:28 [facility] 39 weeks gestation of 39 weeks gestation of Disease Resolve d 03-07 00:00: 00 2018-04-01 00:00:00 2018-04-01 13:20:03 [facility] Group B streptococ kavon infection during Group B streptococ kavon infection during Disease Resolve d 9-05 00:00: 00 2018-04-01 00:00:00 2018-04-01 13:20:06 [facility] Supervisio n of high risk , antepartum Supervisio n of high risk , antepartum Disease Resolve d 7-17 00:00: 00 2018-04-01 00:00:00 2018-04-01 13:20:11 [facility] Back pain with right-side d sciatica Back pain with right-side d sciatica Disease Resolve d 7-03 00:00: 00 2018-04-01 00:00:00 2018-04-01 13:20:04 [facility] Urinary tract infection without hematuria, site unspecifie d Urinary tract infection without hematuria, site unspecifie d Disease Resolve d 2-21 00:00: 00 2018-04-01 00:00:00 2018-04-01 13:20:02 [facility] Multiparit y Multiparit y Disease Resolve d 2-01 00:00: 00 2018-04-01 00:00:00 2018-04-01 13:20:08 [facility] H/O miscarriag e, currently H/O miscarriag e, currently Disease Resolve d 2-01 00:00: 00 2018-04-01 00:00:00 2018-04-01 13:20:07 [facility] Hypertensi on Hypertensi on Disease Resolve d 2018-03-08 00:00:00 2018-03-08 07:51:04 [facility] Back pain affecting , antepartum Back pain affecting , antepartum Disease Resolve d 6-21 00:00: 00 2018-02-18 00:00:00 2018-02-18 10:57:31 [facility] History of 3 sections History of 3 sections Disease Resolve d 7-03 00:00: 00 2018-01-18 00:00:00 2018-01-18 14:54:25 [facility] Supervisio n of high risk in second trimester Supervisio n of high risk in second trimester Disease Resolve d 4-09 00:00: 00 2018-01-04 00:00:00 2018-01-04 10:26:26 [facility] Feeling light headed Feeling light headed Disease Resolve d 3-21 00:00: 00 2017-11-23 00:00:00 2017-11-23 15:29:15 [facility] Circumvall ate placenta during in third trimester, antepartum Circumvall ate placenta during in third trimester, antepartum Disease Resolve d 2017-0 2-02 00:00: 00 2017-11-23 00:00:00 2017-11-23 15:29:06 [facility] Subchorion ic hematoma, third trimester, fetus 1 Subchorion ic hematoma, third trimester, fetus 1 Disease Resolve d 2017-0 2-02 00:00: 00 2017-11-23 00:00:00 2017-11-23 15:29:07 [facility] Supervisio n of high risk , antepartum , first trimester Supervisio n of high risk , antepartum , first trimester Disease Resolve d 0 3-13 00:00: 00 2017-09-27 00:00:00 2017-09-27 14:42:24 [facility] Supervisio n of high-risk of young primigravi da Supervisio n of high-risk of young primigravi da Disease Resolve d 0 - 00:00: 00 2017-08-31 00:00:00 2017-08-31 07:52:24 [facility] Previous delivery affecting , antepartum Previous delivery affecting , antepartum Disease Resolve d 2016-0 4-06 00:00: 00 2017-07-22 00:00:00 2017-07-22 11:18:09 [facility] Anxiety during in third trimester, antepartum Anxiety during in third trimester, antepartum Disease Resolve d 2016-0 2-21 00:00: 00 2017-07-22 00:00:00 2017-07-22 11:18:05 [facility] High-risk , third trimester High-risk , third trimester Disease Resolve d 2016-0 2-02 00:00: 00 2017-07-22 00:00:00 2017-07-22 11:18:16 [facility] Anemia complicati ng , third trimester Anemia complicati ng , third trimester Disease Resolve d 2017-0 1-19 00:00: 00 2017-07-22 00:00:00 2017-07-22 11:17:53 [facility] Left sided sciatica Left sided sciatica Disease Resolve d 2015-06- 00:00: 00 2017-07-22 00:00:00 2017-07-22 11:18:01 [facility] Numbness of left foot Numbness of left foot Disease Resolve d 2015-06 00:00: 00 2017-07-22 00:00:00 2017-07-22 11:17:53 [facility] Vaginal bleeding in , second trimester Vaginal bleeding in , second trimester Disease Resolve d 2015-06 00:00: 00 2017-07-22 00:00:00 2017-07-22 11:17:59 [facility] E. coli UTI E. coli UTI Disease Resolve d 2015-06 00:00: 00 2017-07-22 00:00:00 2017-07-22 11:17:35 [facility] UTI in , second trimester UTI in , second trimester Disease Resolve d 2015-06 00:00: 00 2017-07-22 00:00:00 2017-07-22 11:17:41 [facility] Echogenic bowel of fetus on ultrasound Echogenic bowel of fetus on ultrasound Disease Resolve d 2015-06 00:00: 00 2017-07-22 00:00:00 2017-07-22 11:17:23 [facility] Persistent cough Persistent cough Disease Resolve d 2015-06 00:00: 00 2017-07-22 00:00:00 2017-07-22 11:17:26 [facility] Incomplete ABx Course Incomplete ABx Course Disease Resolve d 9-16 00:00: 00 2017-07-22 00:00:00 2017-07-22 11:17:20 [facility] GBS carrier GBS carrier Disease Resolve d 8-24 00:00: 00 2017-07-22 00:00:00 2017-07-22 11:17:16 [facility] UTI in , first trimester UTI in , first trimester Disease Resolve d 8-24 00:00: 00 2017-07-22 00:00:00 2017-07-22 11:17:31 [facility] Nausea and vomiting during prior to 22 weeks gestation Nausea and vomiting during prior to 22 weeks gestation Disease Resolve d 02-10 00:00: 00 2017-07-22 00:00:00 2017-07-22 11:17:44 [facility] Vaginal bleeding in , first trimester Vaginal bleeding in , first trimester Disease Resolve d 02-10 00:00: 00 2017-07-22 00:00:00 2017-07-22 11:17:38 [facility] Threatened miscarriag e in early Threatened miscarriag e in early Disease Resolve d 02-10 00:00: 00 2017-07-22 00:00:00 2017-07-22 11:17:29 [facility] Previous section complicati ng Previous section complicati ng Disease Resolve d 02-10 00:00: 00 2017-07-22 00:00:00 2017-07-22 11:17:13 [facility] History of dilatation and curettage History of dilatation and curettage Disease Resolve d 02-10 00:00: 00 2017-07-22 00:00:00 2017-07-22 11:17:08 [facility] Anxiety and depression Anxiety and depression Disease Resolve d 02-10 00:00: 00 2017-07-22 00:00:00 2017-07-22 11:17:52 [facility] 33 weeks gestation of 33 weeks gestation of Disease Resolve d 3- 00:00: 00 2016-08-25 00:00:00 2016-08-25 14:26:16 [facility] 32 weeks gestation of 32 weeks gestation of Disease Resolve d 2- 00:00: 00 2016-08-25 00:00:00 2016-08-25 14:26:12 [facility] Anxiety during in second trimester, antepartum Anxiety during in second trimester, antepartum Disease Resolve d 2015-06 1- 00:00: 00 2016-08-11 00:00:00 2016-08-11 09:11:24 [facility] Subchorion ic hematoma in second trimester Subchorion ic hematoma in second trimester Disease Resolve d 2015-06 00:00: 00 2016-08-11 00:00:00 2016-08-11 09:10:51 [facility] Vaginal bleeding Vaginal bleeding Disease Resolve d 2015-06 00:00: 00 2016-08-11 00:00:00 2016-08-11 09:10:25 [facility] High-risk , second trimester High-risk , second trimester Disease Resolve d 2015-06 00:00: 00 2016-07-23 00:00:00 2016-07-23 16:28:31 [facility] Circumvall ate placenta during in second trimester, antepartum Circumvall ate placenta during in second trimester, antepartum Disease Resolve d 2015-06 00:00: 00 2016-07-23 00:00:00 2016-07-23 16:27:27 [facility] Subchorion ic hematoma in first trimester Subchorion ic hematoma in first trimester Disease Resolve d 02-10 00:00: 00 2016-07-23 00:00:00 2016-07-23 16:28:07 [facility] Supervisio n of high-risk , first trimester Supervisio n of high-risk , first trimester Disease Resolve d 02-10 00:00: 00 2016-05-13 00:00:00 2016-05-13 15:40:56 [facility] Anxiety during in first trimester, antepartum Anxiety during in first trimester, antepartum Disease Resolve d 02-10 00:00: 00 2016-05-13 00:00:00 2016-05-13 15:41:37 [facility] Allergies, Adverse Reactions, Alerts Allergy Name Allergy Type Status Severity Reaction(s) Onset Date Inactive Date Treating Clinician Comments Source IODINATE D CONTRAST MEDIA Drug Class Active Anaphylaxis 01-19 00:00: 00 [facility] Iodinate d Contrast Media Propensi ty to adverse reaction s Active Anaphylaxis 01-19 00:00: 00 [facility] Iodine Drug Allergy Active Swelling 07-22 00:00: 00 [facility] Iodine Propensi ty to adverse reaction s Active Swelling 07-22 00:00: 00 [facility] IODINE DRUG INGREDI Active High Anaphylaxis 07-22 00:00: 00 [facility] Social History Social Habit Start Date Stop Date Quantity Comments Source ASSERTION 2022-11-09 00:00:00 [facility] Alcoholic beverage intake 2024-03-01 00:00:00 2024-03-01 00:00:00 Ex-drinker (finding) [facility] Alcohol intake 2023-10-20 00:00:00 2023-10-20 00:00:00 Ex-drinker (finding) [facility] History of Social function 2023-04-26 00:00:00 2023-04-26 00:00:00 [facility] Tobacco use and exposure 2023-01-09 00:00:00 2023-01-09 00:00:00 Smokeless tobacco non-user [facility] Exposure to SARS-CoV-2 (event) 2022-12-01 00:00:00 2022-12-11 09:58:00 Not sure [facility] History SDOH Alcohol Frequency 2020-06-27 00:00:00 2020-06-27 00:00:00 3 [facility] History SDOH Alcohol Std Drinks 2020-06-27 00:00:00 2020-06-27 00:00:00 99 [facility] History SDOH Alcohol Binge 2020-06-27 00:00:00 2020-06-27 00:00:00 99 [facility] Alcohol Comment 2020-06-27 00:00:00 2020-06-27 00:00:00 on occassion, liquor and beer on occassions. [facility] Sex assigned at 1995 00:00:00 1995 00:00:00 [facility] Smoking Status Start Date Stop Date Source Never smoked tobacco [facility] Medications Ordered Medication Name Filled Medication Name Start Date Stop Date Current Medication? Ordering Clinician Indication Dosage Frequency Signature (SIG) Comments Components Source peg-electro lyte soln 236-22.74-6 .74 -5.86 gram solution 03-01 00:00: 00 Yes [id number] Take as directed before colonoscop y [facility] butalbital- acetaminoph en-caff 50-325-40 mg tablet 02-23 00:00: 00 Yes [id number] 1{tbl} Take 1 tablet by mouth every 4 (four) hours as needed (severe migraine). Use sparingly no more than 9 days per month [facility] methocarbam oL 750 mg tablet 02-23 00:00: 00 Yes [id number] 750mg Take 1 tablet by mouth 3 (three) times daily as needed for Other (muscle spasms). [facility] ketorolac 10 mg tablet 02-23 00:00: 00 Yes [id number] 10mg Take 1 tablet by mouth every 6 (six) hours as needed (migraine) . [facility] ubrogepant (UBRELVY) 100 mg tablet 02-23 00:00: 00 Yes [id number] 100mg Take 1 tablet by mouth at onset of migraine symptoms. May repeat in 2 hours if needed. Max of 2 tablets per 24 hours. [facility] proMETHazin e 25 mg tablet 02-23 00:00: 00 Yes [id number] 25mg Take 1 tablet by mouth every 4 (four) hours as needed for N/V alternatin g with Ondansetro n. [facility] diazePAM 2 mg tablet 02-23 00:00: 00 Yes [id number] 2mg Take 1 tablet by mouth 2 (two) times daily as needed (severe migraine). No more than 2 days a week, 8 days a month. Do not take with butalbital or other [employer] SALES [employer] depressant s [facility] ciprofloxac in-dexameth asone 0.3-0.1 % otic drops 02-16 00:00: 00 02-24 04:59 :00 Yes [id number] 4[drp] Place 4 Drops in left ear in the morning and 4 Drops in the evening. Do all this for 7 days. [facility] bromphenira mine-pseudo ephedrine-D M 2-30-10 mg/5 mL syrup 02-16 00:00: 00 02-22 04:59 :00 Yes [id number] 5mL Take 5 mL by mouth 4 (four) times daily as needed for Congestion /Allergies for up to 5 days. [facility] atogepant (QULIPTA) 60 mg Tab tablet 01-17 00:00: 00 Yes [id number] 60mg Take 1 tablet by mouth in the morning. [facility] ALPRAZolam (XANAX) 0.5 mg tablet 11-24 00:00: 00 11-25 04:59 :00 No [id number] .5mg Take 1 tablet by mouth once now for 1 dose. 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 [facility] ondansetron 8 mg disintegrat ing tablet 11-15 00:00: 00 Yes [id number] 8mg Take 1 tablet by mouth every 8 (eight) hours as needed for Nausea and Vomiting (N/V) (or migraine). [facility] ondansetron 4 mg disintegrat ing tablet 11-15 00:00: 00 11-17 00:00 :00 No [id number] 4mg Take 1 tablet by mouth every 8 (eight) hours as needed for Nausea and Vomiting (N/V). [facility] azelastine 137 mcg (0.1 %) nasal spray 10-31 00:00: 00 11-16 00:00 :00 No [id number] 1{spray } USE 1 SPRAY IN EACH NOSTRIL IN THE MORNING AND 1 SPRAY IN THE EVENING DIRECTED [facility] HYDROcodone -acetaminop hen (NORCO) 10-325 mg tablet 1 tablet 10-26 05:15: 00 10-26 04:19 :00 No 1{tbl} 1 tablet, Oral, ONCE NOW, 1 dose, On Wed10/27/23 at 0015, Routine [facility] acetaminoph en-codeine 300-30 mg tablet 10-26 00:00: 00 11-03 04:59 :00 No [id number] 1{tbl} Take 1 tablet by mouth every 4 (four) hours as needed for Pain (scale 7-10) for up to 7 days. Indication s: acute pain [facility] minoxidiL 2.5 mg tablet 10-19 00:00: 00 Yes [id number] 2.5mg Take 1 tablet by mouth in the morning. [facility] hydroxychlo roquine (PLAQUENIL) 200 mg tablet 09-26 00:00: 00 Yes [id number] 300mg Take 1.5 tablets by mouth in the morning. [facility] azelastine 137 mcg (0.1 %) nasal spray 09-15 00:00: 00 10-31 00:00 :00 No [id number] 1{spray } USE 1 SPRAY IN EACH NOSTRIL IN THE MORNING AND 1 SPRAY IN THE EVENING DIRECTED [facility] DULoxetine 30 mg capsule 09-14 00:00: 00 Yes [id number] 30mg Take 1 capsule by mouth in the morning and 1 capsule in the evening. First week, take only 1 capsule in morning, and then twice daily thereafter . [facility] minoxidiL 2.5 mg tablet 09-14 00:00: 00 10-19 00:00 :00 No [id number] 2.5mg Take 1 tablet by mouth in the morning. [facility] methocarbam oL 750 mg tablet 08-29 00:00: 00 02-23 00:00 :00 No 750mg Take 1 tablet by mouth 3 (three) times daily as needed for Other (muscle spasms). [facility] butalbital- acetaminoph en-caff 50-325-40 mg tablet 08-25 00:00: 02-23 00:00 :00 No [id number] 1{tbl} Take 1 tablet by mouth every 4 (four) hours as needed (severe migraine). Use sparingly no more than 9 days per month [facility] nortriptyli ne 50 mg capsule 08-16 00:00: 00 Yes [id number] 1-2 po QHS [facility] sumatriptan (IMITREX) 100 mg tablet 08-16 00:00: 00 Yes [id number] 100mg Take 1 tablet by mouth as needed for Migraine. May repeat in 2h if headache remains [facility] ondansetron 4 mg disintegrat ing tablet 08-16 00:00: 00 11-15 00:00 :00 No [id number] 4mg Take 1 tablet by mouth every 8 (eight) hours as needed for Nausea and Vomiting (N/V). [facility] butalbital- acetaminoph en-caff 50-325-40 mg tablet 08-16 00:00: 00 08-25 00:00 :00 No [id number] 1{tbl} Take 1 tablet by mouth every 4 (four) hours as needed (severe migraine). Use sparingly no more than 9 days per month [facility] azelastine 137 mcg (0.1 %) nasal spray 07-21 00:00: 00 09-15 00:00 :00 No [id number] 1{spray } USE 1 SPRAY IN EACH NOSTRIL IN THE MORNING AND 1 SPRAY IN THE EVENING DIRECTED [facility] gabapentin 300 mg capsule 07-07 00:00: 00 Yes [id number] 300mg Take 1 capsule by mouth 3 (three) times daily as needed (pain). [facility] methocarbam oL 750 mg tablet 07-06 00:00: 00 08-29 00:00 :00 No 750mg Take 1 tablet by mouth 3 (three) times daily as needed for Other (muscle spasms). [facility] Nitrofurant oin&Nit. Macrocryst (MACROBID) 100 mg capsule 07-05 00:00: 00 07-16 05:59 :00 No [id number] 100mg Take 1 capsule by mouth in the morning and 1 capsule in the evening. Do all this for 10 days. [facility] metroNIDAZO LE 500 mg tablet 07-02 00:00: 00 07-03 05:59 :00 No [id number] 2000mg Take 4 tablets by mouth once now for 1 dose. [facility] HYDROcodone -acetaminop hen 5-325 mg tablet 06-23 00:00: 00 07-01 05:59 :00 No [id number] 1{tbl} Take 1 tablet by mouth every 6 (six) hours as needed for Pain (scale 7-10) for up to 7 days. Indication s: acute pain [facility] ondansetron (ZOFRAN-ODT ) disintegrat ing tablet 4 mg 06-22 01:45: 00 06-22 00:58 :00 No 4mg 4 mg, Oral, ONCE, 1 dose, On Wed06/21/23 at 1945, Routine [facility] HYDROcodone -acetaminop hen (NORCO 5) 5-325 mg tablet 1 tablet 06-22 01:30: 00 06-22 00:53 :00 No 1{tbl} 1 tablet, Oral, ONCE, 1 dose, On Wed06/21/23 at 1930, Routine [facility] methocarbam oL (ROBAXIN) tablet 1,000 mg 06-22 01:00: 00 06-22 00:58 :00 No 1000mg 1,000 mg, Oral, ONCE, 1 dose, On Wed06/21/23 at 1900, DOUGLAS [facility] traMADoL 50 mg tablet 06-21 00:00: 00 06-29 05:59 :00 No [id number] 50mg Take 1 tablet by mouth every 6 (six) hours as needed for Pain (scale 1-3) for up to 7 days. Indication s: acute pain [facility] ondansetron (ZOFRAN-ODT ) disintegrat ing tablet 8 mg 2022-06 03:30: 00 06-17 02:39 :00 No [id number] 8mg [facility] methylPREDN ISolone sod succ (SOLU-MEDRO L (PF)) injection 40 mg 2022-06 03:30: 00 06-17 02:46 :00 No [id number] 40mg [facility] ketorolac (TORADOL) injection 60 mg 2022-06 03:15: 00 06-17 02:47 :00 No [id number] 60mg [facility] methylpredn isolone sod succ (SOLU-MEDRO L) injection 125 mg 2022-06 03:15: 00 06-17 02:32 :47 No [id number] 125mg [facility] albuterol (VENTOLIN) inhaler 2 Puff 2022-06 03:15: 00 06-17 02:40 :00 No [id number] 2{puff} [facility] benzonatate 100 mg capsule 2022-06 00:00: 00 Yes [id number] 200mg Take 2 capsules by mouth every 8 (eight) hours as needed for Cough. [facility] albuterol 90 mcg/actuati on inhaler 2022-06 00:00: 00 Yes [id number] 2{puff} Inhale 2 Puffs every 6 (six) hours as needed for Wheezing or Shortness of Breath. [facility] amoxicillin -clavulanat e (AUGMENTIN) 875-125 mg per tablet 2022-06 00:00: 00 06-27 05:59 :00 No [id number] 1{tbl} Take 1 tablet by mouth in the morning and 1 tablet in the evening. Do all this for 10 days. [facility] predniSONE 20 mg tablet 2022-06 00:00: 00 06-22 05:59 :00 No [id number] 40mg Take 2 tablets by mouth in the morning for 5 days. [facility] bromphenira mine-pseudo ephedrine-D M (BROMFED DM) 2-30-10 mg/5 mL syrup 2022-06 00:00: 00 01-20 00:00 :00 No [id number] 5mL Take 5 mL by mouth 4 (four) times daily as needed for Cold symptoms. [facility] azelastine 137 mcg (0.1 %) nasal spray 2022-06 00:00: 00 07-21 00:00 :00 No [id number] 1{spray } Use 1 [place] in each nostril in the morning and 1 [place] in the evening. Use in each nostril as directed [facility] amoxicillin -clavulanat e (AUGMENTIN) 875-125 mg per tablet 2022-06 00:00: 00 06-16 00:00 :00 No [id number] 1{tbl} Take 1 tablet by mouth in the morning and 1 tablet in the evening. [facility] topiramate 25 mg tablet 2022-06-16 00:00: 00 01-17 00:00 :00 No [id number] 25mg Take 1 tablet by mouth in the morning and 1 tablet in the evening. [facility] amitriptyli ne 25 mg tablet 2022-06 00:00: 00 08-16 00:00 :00 No [id number] 50mg Take 2 tablets by mouth at bedtime. [facility] SUMAtriptan (IMITREX) 50 mg tablet 2022-06 00:00: 00 08-16 00:00 :00 No [id number] 50mg Take 1 tablet by mouth as needed for Migraine. [facility] hydroxychlo roquine (PLAQUENIL) 200 mg tablet 2022-06 00:00: 00 09-15 00:00 :00 No [id number] 300mg Take 1.5 tablets by mouth in the morning. [facility] Methylpredn isolone (MEDROL) tablet 4 mg 2022-06 [...] Wed05/03/23 at 1700, Routine [Order 2 End] [facility] ferrous sulfate 325 mg (65 mg iron) tablet 2022-06 17:08: 54 01-20 00:00 :00 No 325mg Take 1 tablet by mouth in the morning. [facility] SUMAtriptan (IMITREX) tablet 100 mg 2022-06 16:45: 00 05-01 16:41 :00 No 100mg 100 mg, Oral, ONCE, 1 dose, On 05/01/23 at 1045, Routine [facility] amitriptyli ne (ELAVIL) tablet 25 mg 2022-06 03:00: 00 Yes 25mg 25 mg, Oral, QHS, First dose (after last modificati on) on Wed04/30/23 at 2100, Until Discontinu ed, Routine [facility] topiramate (TOPAMAX) tablet 25 mg 2022-06 03:00: 00 05-07 02:59 :00 No 25mg 25 mg, Oral, QHS, 6 doses, First dose (after last modificati on) on Wed04/30/23 at 2100, Last dose on Wed05/05/23 at 2100, Routine
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 [facility] topiramate 25 mg tablet 2022-06 00:00: 00 05-06 00:00 :00 No [id number] 25mg Take 1 tablet by mouth in the morning and 1 tablet in the evening. Do all this for 90 days. [facility] enoxaparin (LOVENOX) injection 40 mg 2022-06 23:00: 00 Yes 40mg 40 mg, Subcutaneo us, DAILY AT 1700, First dose on Wed04/30/23 at 1700, Until Discontinu ed, Routine [facility] SUMAtriptan (IMITREX) tablet 100 mg 2022-06 20:30: 00 04-30 20:40 :00 No 100mg 100 mg, Oral, ONCE, 1 dose, On Wed04/30/23 at 1430, Routine [facility] topiramate (TOPAMAX) tablet 25 mg 2022-06 19:45: 00 04-30 20:47 :23 No 25mg 25 mg, Oral, DAILY, 7 doses, First dose on Wed04/30/23 at 1345, Last dose on Wed05/06/23 at 0900, Routine
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 : LORENA KIRK [facility] ketorolac (TORADOL) injection 30 mg 2022-06 15:30: 00 04-30 16:07 :00 No 30mg 30 mg, Slow IV Push, ONCE NOW, 1 dose, On Wed04/30/23 at 0930, DOUGLAS [facility] diphenhydrA MINE (BENADRYL) injection 25 mg 2022-06 15:28: 20 Yes 25mg 25 mg, Intravenou s, Q8HPRN, Starting on Wed04/30/23 at 0928, Until Discontinu ed, Routine, Nausea and Vomiting (N/V), Headache [facility] proCHLORper azine (COMPAZINE) 10 mg in NaCl 0.9% (NS) piggyback 2022-06 15:20: 49 Yes 10mg 10 mg, IV Piggyback, at 100 mL/hr Administer over 30 Minutes, Q8HPRN, Starting on Wed04/30/23 at 0920, Until Discontinu ed, Routine, Nausea and Vomiting (N/V) [facility] acetaminoph en (TYLENOL) tablet 650 mg 2022-06 15:15: 23 Yes 650mg 650 mg, Oral, Q6HPRN, Starting on Wed04/30/23 at 0915, Until Discontinu ed, Routine, Pain (scale 1-3), Pain (scale 4-6) [facility] NaCl 0.9% (NS) IV infusion 1,000 mL 2022-06 14:15: 00 Yes 1000mL at 75 mL/hr, IV Infusion, CONTINUOUS , Starting on Wed04/30/23 at 0815, Until Discontinu ed, Routine [facility] acetaminoph en-codeine (TYLENOL #3) 300-30 mg tablet 1 tablet 2022-06 05:02: 17 Yes 1{tbl} 1 tablet, Oral, Q4HPRN, Starting on Wed04/29/23 at 2302, Until Discontinu ed, Routine, Pain (scale 4-6) [facility] gadobenate dimeglumine (MULTIHANCE -20 mL) injection 18.72 mL 2022-06 03:30: 00 04-30 03:30 :00 No [id number] .2mL/kg 18.72 mL (0.2 mL/kg ?93.6 kg), Intravenou s, ONCE, 1 dose, On Trista 04/29/23 at 2130, Routine [facility] amitriptyli ne (ELAVIL) tablet 15 mg 2022-06 03:00: 00 04-30 17:22 :47 No 15mg 15 mg, Oral, QHS, First dose on Trista 04/29/23 at 2100, Until Discontinu ed, Routine [facility] HYDROcodone -acetaminop hen (NORCO 5) 5-325 mg tablet 1 tablet 2022-06 01:00: 00 04-30 00:13 :00 No 1{tbl} 1 tablet, Oral, ONCE, 1 dose, On Trista 04/29/23 at 1900, Routine [facility] amitriptyli ne 25 mg tablet 2022-06 00:00: 00 05-06 00:00 :00 No [id number] 25mg Take 1 tablet by mouth at bedtime. [facility] SUMAtriptan (IMITREX) 50 mg tablet 2022-06 00:00: 00 05-06 00:00 :00 No [id number] 50mg Take 1 tablet by mouth as needed for Migraine for up to 9 doses. [facility] topiramate 25 mg tablet 2022-06 00:00: 00 05-01 00:00 :00 No [id number] Take 1 tablet by mouth at bedtime for 6 days, THEN 1 tablet 2 (two) times daily for 84 days. [facility] magnesium oxide 420 mg Tab 2022-06 00:00: 00 04-29 00:00 :00 No [id number] 400mg Take 400 mg by mouth in the morning. [facility] LORazepam (ATIVAN) tablet 0.5 mg 2022-06 22:30: 00 04-30 02:13 :00 No .5mg 0.5 mg, Oral, ONCE, 1 dose, On Wed04/29/23 at 1630, Routine [facility] ibuprofen (IBU) tablet 600 mg 2022-06 16:13: 00 04-29 22:19 :36 No 600mg 600 mg, Oral, Q6HPRN, Starting on Wed04/29/23 at 1013, Until Wed04/29/23 at 1619, Routine, Headache, 1-10 pain [facility] magnesium oxide 400 mg (241.3 mg magnesium) tablet 2022-06 00:00: 00 Yes [id number] 400mg Take 1 tablet by mouth in the morning. [facility] ibuprofen 600 mg tablet 2022-06 00:00: 00 01-20 00:00 :00 No [id number] 100 600mg Take 1 tablet by mouth every 6 (six) hours as needed for Pain (scale 1-3). [facility] amitriptyli ne 10 mg tablet 2022-06 00:00: 00 04-30 00:00 :00 No [id number] 15mg Take 1.5 tablets by mouth at bedtime. [facility] amitriptyli ne 10 mg tablet 2022-06 00:00: 00 04-29 00:00 :00 No [id number] 10mg Take 1 tablet by mouth at bedtime. [facility] benzocaine- menthoL (CEPACOL SORE THROAT (RHONDA-MEN)) lozenge 1 Lozenge 2022-06 18:38: 10 Yes 1{lozen ge} 1 Lozenge, Oral, Q4HPRN, Starting on Wed04/28/23 at 1238, Until Discontinu ed, Routine, Sore throat [facility] ondansetron (ZOFRAN (PF)) injection 4 mg 2022-06 16:25: 19 Yes 4mg 4 mg, Slow IV Push, Q6HPRN, Nausea and Vomiting (N/V), Starting on Wed04/28/23 at 1025
Do ses of ondansetro n 16 mg and above need to be administer ed via IV piggyback. For Dose >=24mg ECG monitoring is advisable.
[facility] ketorolac (TORADOL) injection 30 mg 2022-06 00:30: 00 04-28 15:23 :00 No 30mg 30 mg, Slow IV Push, Q8H ABX, 3 doses, First dose on Wed04/27/23 at 1830, Last dose on Wed04/28/23 at 1030, Routine [facility] magnesium sulfate in water 2 gram/50 mL (4 %) infusion 2 g 2022-06 00:15: 00 04-28 01:11 :00 No 2g 2 g, IV Piggyback, Administer over 60 Minutes, ONCE, 1 dose, On Wed04/27/23 at 1815, Routine [facility] ondansetron (ZOFRAN (PF)) injection 4 mg 2022-06 16:30: 00 04-27 15:46 :00 No 4mg 4 mg, Slow IV Push, ONCE, On Wed04/27/23 at 1030, For 1 dose
Do ses of ondansetro n 16 mg and above need to be administer ed via IV piggyback. For Dose >=24mg ECG monitoring is advisable.
[facility] amitriptyli ne (ELAVIL) tablet 10 mg 2022-06 03:00: 00 04-29 22:27 :33 No 10mg 10 mg, Oral, QHS, First dose on Wed04/26/23 at 2100, Until Discontinu ed, Routine [facility] magnesium sulfate in water 4 gram/50 mL (8 %) IV Piggyback 4 g 2022-06 23:30: 00 04-27 06:00 :00 No 4g 4 g, IV Piggyback, at 25 mL/hr Administer over 120 Minutes, ONCE, 1 dose, On Wed04/26/23 at 1730, Routine [facility] acetaminoph en (TYLENOL) tablet 500 mg 2022-06 23:15: 55 04-29 22:27 :33 No 500mg 500 mg, Oral, Q6HPRN, Starting on Wed04/26/23 at 1715, Until Wed04/29/23 at 1627, Routine, Pain (scale 4-6) [facility] ibuprofen (IBU) tablet 600 mg 2022-06 23:15: 43 04-27 23:24 :39 No 600mg 600 mg, Oral, Q6HPRN, Starting on Wed04/26/23 at 1715, Until Wed04/27/23 at 1724, Routine, Pain (scale 1-3) [facility] valproate (DEPACON) 250 mg in D5W piggyback 2022-06 21:30: 00 04-27 19:59 :00 No 250mg 250 mg, IV Piggyback, TID, 3 doses, First dose on Wed04/26/23 at 1530, Last dose on Wed04/27/23 at 0800, Administer over 60 Minutes, 100 mL [facility] magnesium oxide (MAG-OX 400) tablet 400 mg 2022-06 20:45: 00 04-29 22:27 :33 No 400mg 400 mg, Oral, DAILY, First dose on Wed04/26/23 at 1445, Until Discontinu ed, Routine [facility] diphenhydrA MINE (BENADRYL) injection 25 mg 2022-06 20:00: 00 04-26 19:18 :00 No 25mg 25 mg, Intravenou s, ONCE, 1 dose, On Wed04/26/23 at 1400, Routine [facility] ibuprofen (IBU) tablet 800 mg 2022-06 19:15: 00 04-26 18:30 :00 No 800mg 800 mg, Oral, ONCE, 1 dose, On Wed04/26/23 at 1315, Routine [facility] HYDROcodone -acetaminop hen (NORCO 5) 5-325 mg tablet 1 tablet 2022-06 14:30: 00 04-26 16:00 :00 No 1{tbl} 1 tablet, Oral, ONCE, 1 dose, On Wed04/26/23 at 0830, Routine, PACU [facility] proMETHazin e (PHENERGAN) 12.5 mg in NS 50 mL IV piggyback (CNR) 2022-06 14:19: 50 04-26 20:10 :00 No 12.5mg 12.5 mg, IV Piggyback, at 200 mL/hr Administer over 15 Minutes, PRN, 1 dose, Starting on Wed04/26/23 at 0819, Until Wed04/26/23 at 1410, Routine, Nausea and Vomiting (N/V), PACU [facility] ferrous sulfate 325 mg (65 mg iron) tablet 2022-06 08:55: 33 Yes 325mg Take 1 tablet by mouth in the morning. [facility] hydroxychlo roquine 200 mg tablet 2022-06 00:00: 00 05-04 00:00 :00 No [id number] 200mg Take 1 tablet by mouth in the morning. [facility] ferrous sulfate 325 mg (65 mg iron) tablet 2022-06 16:56: 08 Yes 325mg Take 1 tablet by mouth in the morning. [facility] ondansetron 4 mg disintegrat ing tablet 2022-06 00:00: 00 08-16 00:00 :00 No [id number] 4mg Take 1 tablet by mouth every 8 (eight) hours as needed for Nausea and Vomiting (N/V). [facility] predniSONE 5 mg tablet 2022-06 0 00:00: 00 04-25 04:59 :00 No [id number] Take 3 tablets by mouth daily for 5 days, THEN 2 tablets daily for 5 days, THEN 1 tablet daily for 5 days. [facility] ferrous sulfate 325 mg (65 mg iron) tablet 2022-06 14:04: 54 Yes 325mg Take 1 tablet by mouth in the morning. [facility] norethindro ne 0.35 mg tablet 2022-06 0-16 00:00: 00 07-05 05:59 :00 No [id number] 100 .35mg Take 1 tablet by mouth in the morning for 90 days. [facility] medroxyPROG ESTERone (PROVERA) 5 mg tablet 2022-06 0-16 00:00: 00 04-13 04:59 :00 No [id number] 100 5mg Take 1 tablet by mouth in the morning for 7 days. [facility] OZEMPIC 0.25 mg or 0.5 mg (2 mg/3 mL) PnIj 03-17 00:00: 00 01-20 00:00 :00 No INJECT 0.5 MG SUBCUTANEO USLY WEEKLY. [facility] metroNIDAZO LE 500 mg tablet 03-17 00:00: 00 04-07 00:00 :00 No TAKE ONE (1) TABLET(S) BY MOUTH EVERY TWELVE HOURS FOR 7 DAYS. [facility] ciprofloxac in HCl 500 mg tablet 03-17 00:00: 00 04-07 00:00 :00 No TAKE ONE (1) TABLET(S) BY MOUTH EVERY TWELVE HOURS FOR SEVEN DAYS. [facility] phentermine 37.5 mg tablet 03-12 00:00: 00 01-20 00:00 :00 No 37.5mg Take 1 tablet by mouth in the morning. [facility] norelgestro min-ethinyl estradiol (XULANE) 150-35 mcg/24 hr patch 02-01 00:00: 00 Yes [id number] 1{patch } Apply 1 Patch to skin weekly. [facility] ondansetron (ZOFRAN (PF)) injection 4 mg 01-26 02:45: 00 01-26 02:53 :00 No 4mg 4 mg, Slow IV Push, ONCE, 1 dose, On Wed01/25/23 at 2145, DOUGLAS [facility] morpHINE (4 mg/mL) injection 4 mg 01-26 02:45: 00 01-26 02:53 :00 No 4mg 4 mg, Slow IV Push, ONCE, 1 dose, On 01/25/23 at 2145, STAT [facility] gabapentin (NEURONTIN) capsule 300 mg 01-09 15:00: 00 Yes 300mg 300 mg, Oral, TID, First dose on 01/09/23 at 1000, Until Discontinu ed, Routine [facility] ibuprofen (IBU) tablet 600 mg 01-09 13:45: 00 Yes 600mg 600 mg, Oral, Q6H, First dose (after last modificati on) on 01/09/23 at 0845, Until Discontinu ed, Routine [facility] oxyCODONE immediate release tablet 5 mg 01-09 07:00: 00 01-09 06:30 :00 No 5mg 5 mg, Oral, ONCE, 1 dose, On 01/09/23 at 0200, Routine
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 : ADC OBGYN [facility] proMETHazin e (PHENERGAN) 25 mg in NaCl 0.9% (NS) 50 mL IV piggyback 01-09 06:04: 38 Yes 25mg 25 mg, IV Piggyback, Q4HPRN, Starting on 01/09/23 at 0104, Until Discontinu ed, Routine, Nausea and Vomiting (N/V) [facility] lactated ringers IV infusion 1,000 mL 01-09 05:45: 00 Yes 1000mL at 100 mL/hr, 1,000 mL, IV Infusion, CONTINUOUS , Starting on 01/09/23 at 0045, Until Discontinu ed, Routine, PACU [facility] ondansetron (ZOFRAN (PF)) injection 4 mg 01-09 05:40: 11 Yes 4mg 4 mg, Slow IV Push, Q6HPRN, Starting on 01/09/23 at 0040, Until Discontinu ed, Routine, Nausea and Vomiting (N/V) [facility] FENTanyl PF (SUBLIMAZE (PF)) injection 25 mcg 01-09 04:09: 38 01-09 04:36 :00 No 25ug 25 mcg, Slow IV Push, Q5MIN PRN, 4 doses, Starting on Wed01/08/23 at 2309, Until Wed01/08/23 at 2336, Routine, Pain (scale 4-6), PACU [facility] HYDROmorphO ne (DILAUDID) injection 0.2 mg 01-09 04:09: 38 01-09 05:30 :19 No .2mg 0.2 mg, Slow IV Push, Q5MIN PRN, 10 doses, Starting on Wed01/08/23 at 2309, Until Wed01/09/23 at 0030, Routine, Pain (scale 7-10), PACU
Us e approved by (Faculty): PACU USE -ANESTHESI A SERVICE-HY DROMORPHON E INJECTIONS [facility] HYDROcodone -acetaminop hen (NORCO 5) 5-325 mg tablet 2 tablet 01-09 04:05: 17 Yes 2{tbl} 2 tablet, Oral, Q6HPRN, Starting on Wed01/08/23 at 2305, Until Discontinu ed, Routine, Pain (scale 7-10) [facility] bupivacaine (preserv free) (SENSORCAIN E MPF) 0.25 % (2.5 mg/mL) injection 01-09 02:15: 00 Yes PRN, Starting on Wed01/08/23 at 2115, Until Discontinu ed, Routine, Intra-op [facility] sodium chloride 0.9 % irrigation solution 01-09 00:50: 00 Yes PRN, Starting on Wed01/08/23 at 1950, Until Discontinu ed, Intra-op [facility] doxycycline hyclate (Vibramycin ) capsule 100 mg 01-09 00:03: 07 01-09 00:14 :00 No 100mg 100 mg, Oral, O.R. HOLDING ONCE, 1 dose, Starting on Wed01/08/23 at 1903, Until Wed01/08/23 at 1914, DOUGLAS, Surgery/Pr ocedure
Reason for Anti-Infec tive: Surgical Prophylaxi s
Surgi kavon Prophylaxi s: [employer]PER[employer]OR SUBSTATION
Duration of therapy: within 24 hours of surgery [facility] ibuprofen 800 mg tablet 01-09 00:00: 00 04-27 00:00 :00 No [id number] 800mg Take 1 tablet by mouth every 8 (eight) hours as needed (Pain). [facility] HYDROcodone -acetaminop hen 5-325 mg tablet 01-09 00:00: 00 04-07 00:00 :00 No [id number] 1{tbl} Take 1 tablet by mouth every 6 (six) hours as needed (Pain). Indication s: acute pain [facility] NaCl 0.9% (NS) IV infusion 1,000 mL 01-08 20:15: 00 01-09 05:41 :08 No 1000mL at 150 mL/hr, Intravenou s, CONTINUOUS , Starting on Wed01/08/23 at 1515, Until Wed01/09/23 at 0041, DOUGLAS [facility] FENTanyl PF (SUBLIMAZE (PF)) injection 25 mcg 01-08 20:00: 00 01-08 19:18 :00 No 25ug 25 mcg, Slow IV Push, ONCE, 1 dose, On Wed01/08/23 at 1500, Routine [facility] diphenhydrA MINE (BENADRYL) injection 25 mg 01-08 16:53: 00 01-08 16:46 :00 No 25mg 25 mg, Slow IV Push, ONCE, 1 dose, On Wed01/08/23 at 1200, STAT [facility] NaCl 0.9% (NS) bolus infusion 1,000 mL 01-08 16:45: 00 01-08 19:12 :00 No 1000mL at 999 mL/hr, 1,000 mL, IV Infusion, ONCE, 1 dose, On Wed01/08/23 at 1145, DOUGLAS [facility] morpHINE (4 mg/mL) injection 4 mg 01-08 16:00: 00 01-08 16:43 :00 No 4mg 4 mg, Slow IV Push, ONCE, 1 dose, On Wed01/08/23 at 1100, STAT [facility] ondansetron (ZOFRAN (PF)) injection 4 mg 01-08 16:00: 00 01-08 16:43 :00 No 4mg 4 mg, Slow IV Push, ONCE, 1 dose, On Wed01/08/23 at 1100, DOUGLAS [facility] NaCl 0.9% (NS) bolus infusion 1,000 mL 01-02 04:45: 00 01-02 05:51 :00 No 1000mL at 999 mL/hr, 1,000 mL, IV Piggyback, ONCE, 1 dose, On Wed01/01/23 at 2345, STAT [facility] ondansetron 4 mg disintegrat ing tablet 01-02 00:00: 00 04-09 00:00 :00 No [id number] 4mg Take 1 tablet by mouth every 12 (twelve) hours as needed for Nausea and Vomiting (N/V). [facility] acetaminoph en-codeine 300-30 mg tablet 01-02 00:00: 00 01-08 00:00 :00 No [id number] 1{tbl} Take 1 tablet by mouth every 6 (six) hours as needed for Pain (scale 7-10) for up to 7 days. Indication s: acute pain [facility] doxylamine- pyridoxine, vit B6, (DICLEGIS) 10-10 mg per tablet 12-21 00:00: 00 04-09 00:00 :00 No [id number] Day 1: Take 2 tablet before bed. Day 2: If still having nausea and vomiting 2 tablet bed. Day 3 take 1 tablet in am and 2 tablet at bed [facility] HYDROcodone -acetaminop hen 7.5-325 mg per tablet 6-29 00:00: 00 01-08 00:00 :00 No TAKE 1 TABLET BY MOUTH EVERY 4 HOURS FOR PAIN [facility] ketorolac 10 mg tablet 12-17 00:00: 00 01-08 00:00 :00 No 10mg Take 1 tablet by mouth every 8 (eight) hours as needed. [facility] Nitrofurant oin&Nit. Macrocryst (MACROBID) 100 mg capsule 12-14 00:00: 00 12-25 04:59 :00 No [id number] 100mg Take 1 capsule by mouth in the morning and 1 capsule in the evening. Do all this for 10 days. [facility] Nitrofurant oin&Nit. Macrocryst (MACROBID) 100 mg capsule 12-12 00:00: 00 12-23 04:59 :00 No [id number] 100mg Take 1 capsule by mouth in the morning and 1 capsule in the evening. Do all this for 10 days. [facility] cetirizine HCl (ZYRTEC ORAL) 12-11 11:04: 03 12-11 00:00 :00 No Take by mouth. [facility] vitamin w/FA tablet 12-11 00:00: 00 Yes [id number] 1{tbl} Take 1 tablet by mouth in the morning. [facility] vitamin w/FA tablet 12-11 00:00: 00 Yes [id number] 1{tbl} Take 1 tablet by mouth in the morning. [facility] proMETHazin e 25 mg tablet 12-11 00:00: 00 01-08 00:00 :00 No [id number] 25mg Take 1 tablet by mouth every 6 (six) hours as needed for Nausea and Vomiting (N/V). [facility] TRINATAL RX 1 60 mg iron-1 mg tablet 12-11 00:00: 00 01-08 00:00 :00 No 1{tbl} Take 1 tablet by mouth every morning. [facility] norelgestro min-ethinyl estradiol 150-35 mcg/24 hr patch 11-12 00:00: 00 12-10 00:00 :00 No [id number] 1{patch } Apply 1 Patch to skin weekly. [facility] SERTraline (ZOLOFT) 100 mg tablet 10-22 00:00: 00 12-11 00:00 :00 No [id number] 100mg Take 1 tablet by mouth in the morning. [facility] ondansetron (ZOFRAN-ODT ) disintegrat ing tablet 4 mg 09-28 13:40: 00 09-28 13:44 :00 No 4mg 4 mg, Oral, ONCE, 1 dose, On Wed09/28/22 at 0845, Routine [facility] cetirizine HCl (ZYRTEC ORAL) 09-28 13:30: 35 Yes Take by mouth. [facility] lactated ringers IV infusion 1,000 mL 09-28 02:45: 00 Yes 1000mL at 42 mL/hr, 1,000 mL, IV Infusion, CONTINUOUS , Starting on Wed09/27/22 at 2145, Until Discontinu ed, Routine [facility] HYDROmorphO ne (DILAUDID) injection 0.5 mg 09-28 01:50: 58 09-28 03:05 :22 No .5mg 0.5 mg, Slow IV Push, Q5MIN PRN, 4 doses, Starting on Wed09/27/22 at 2050, Until Wed09/27/22 at 2205, DOUGLAS, Pain (scale 7-10), PACU
Us e approved by (Faculty): ADC PROVIDER [facility] HYDROcodone -acetaminop hen (NORCO 5) 5-325 mg tablet 2 tablet 09-28 01:40: 53 Yes 2{tbl} 2 tablet, Oral, Q6HPRN, Starting on Wed09/27/22 at 2040, Until Discontinu ed, Routine, Pain (scale 7-10) [facility] HYDROcodone -acetaminop hen (NORCO 5) 5-325 mg tablet 1 tablet 09-28 01:40: 46 Yes 1{tbl} 1 tablet, Oral, Q6HPRN, Starting on 09/27/22 at 2040, Until Discontinu ed, Routine, Pain (scale 4-6) [facility] water for irrigation irrigation solution 09-28 01:20: 00 Yes PRN, Starting on Wed09/27/22 at 2020, Until Discontinu ed, Routine, Intra-op [facility] HYDROcodone -acetaminop hen 5-325 mg tablet 09-28 00:00: 00 11-12 00:00 :00 No [id number] 1{tbl} Take 1 tablet by mouth every 6 (six) hours as needed for Pain (scale 4-6). Indication s: acute pain [facility] miSOPROStoL (CYTOTEC) tablet 800 mcg 09-27 14:15: 00 09-27 13:36 :00 No 800ug 800 mcg, Oral, ONCE, 1 dose, On [place] 09/27/22 at 0915, Routine [facility] D5W 0.9% NaCl (NS) IV infusion 1,000 mL 09-27 05:30: 00 Yes 1000mL at 125 mL/hr, 1,000 mL, IV Infusion, CONTINUOUS , Starting on [place] 09/27/22 at 0030, Until Discontinu ed, Routine [facility] HYDROcodone -acetaminop hen (NORCO) 10-325 mg tablet 1 tablet 09-27 04:45: 00 09-27 03:42 :00 No 1{tbl} 1 tablet, Oral, ONCE NOW, 1 dose, On [facility] 09/26/22 at 2345, Routine [facility] diphenhydrA MINE (BENADRYL) injection 25 mg 09-27 04:40: 31 Yes 25mg 25 mg, Intravenou s, Q6HPRN, Starting on 09/26/22 at 2340, Until Discontinu ed, Routine, Itching [facility] ketorolac (TORADOL) injection 30 mg 09-27 04:33: 40 09-29 04:32 :40 No 30mg 30 mg, Slow IV Push, Q6HPRN, Starting on 09/26/22 at 2333, Until 09/28/22 at 2332, Routine, Pain (scale 1-3), Pain (scale 4-6) [facility] FENTanyl PF (SUBLIMAZE (PF)) injection 50 mcg 09-27 04:33: 26 Yes 50ug 50 mcg, Slow IV Push, Q2HPRN, Starting on 09/26/22 at 2333, Until Discontinu ed, Routine, Pain (scale 7-10) [facility] metoclopram julia HCl (REGLAN) injection 10 mg 09-27 03:45: 00 09-27 03:43 :00 No 10mg 10 mg, Slow IV Push, ONCE, 1 dose, On 09/26/22 at 2245, DOUGLAS [facility] NaCl 0.9% (NS) IV infusion 1,000 mL 09-27 03:30: 00 09-27 03:42 :00 No 1000mL at 999 mL/hr, Intravenou s, ONCE, 1 dose, On 09/26/22 at 2230, Routine [facility] ondansetron (ZOFRAN (PF)) injection 4 mg 09-27 02:45: 00 09-27 02:42 :00 No 4mg 4 mg, Slow IV Push, ONCE, 1 dose, On 09/26/22 at 2145, DOUGLAS [facility] FENTanyl PF (SUBLIMAZE (PF)) injection 25 mcg 09-27 02:45: 00 09-27 02:42 :00 No 25ug 25 mcg, Slow IV Push, ONCE, 1 dose, On 09/26/22 at 2145, STAT [facility] ketorolac (TORADOL) injection 30 mg 09-27 01:15: 00 09-27 00:42 :00 No 30mg 30 mg, Slow IV Push, ONCE, 1 dose, On 09/26/22 at 2015, Routine [facility] NaCl 0.9% (NS) IV infusion 1,000 mL 09-27 01:15: 00 09-27 02:37 :41 No 1000mL at 999 mL/hr, Intravenou s, CONTINUOUS , Starting on 09/26/22 at 2015, Until 09/26/22 at 2137, [facility] ondansetron (ZOFRAN (PF)) injection 4 mg 09-27 00:30: 00 09-27 00:34 :00 No 4mg 4 mg, Slow IV Push, ONCE, 1 dose, On 09/26/22 at 1930, [facility] morpHINE (4 mg/mL) injection 4 mg 09-27 00:15: 00 09-27 00:35 :00 No 4mg 4 mg, Slow IV Push, ONCE, 1 dose, On 09/26/22 at 1915, STAT [facility] SERTraline (ZOLOFT) 50 mg tablet 09-23 00:00: 00 10-22 00:00 :00 No [id number] 100 50mg Take 1 tablet by mouth in the morning. [facility] proMETHazin e 25 mg tablet 08-11 00:00: 00 11-12 00:00 :00 No [id number] 25mg Take 1 tablet by mouth every 4 (four) hours as needed for Nausea and Vomiting (N/V). [facility] Iron Fum & P-FA-Vit B & C No.9 (INTEGRA PLUS) 125 mg iron- 1 mg Cap 08-11 00:00: 00 11-12 00:00 :00 No [id number] 1{capsu le} Take 1 capsule by mouth daily. [facility] Iron Fum & P-FA-Vit B & C No.9 (INTEGRA PLUS) 125 mg iron- 1 mg Cap 08-11 00:00: 00 11-12 00:00 :00 No [id number] 1{capsu le} Take 1 capsule by mouth daily. [facility] HYDROcodone -acetaminop hen (NORCO) 10-325 mg tablet 1 tablet 2021-06 09:30: 00 04-27 08:47 :00 No 1{tbl} 1 tablet, Oral, ONCE, 1 dose, On Wed04/27/22 at 0330, Routine [facility] ketorolac (TORADOL) injection 30 mg 2021-06 09:00: 00 04-27 08:25 :00 No 30mg 30 mg, Slow IV Push, ONCE, 1 dose, On Wed04/27/22 at 0300, Routine [facility] tranexamic acid 650 mg tablet 2021-06 00:00: 00 05-03 05:59 :00 No [id number] 100 1300mg Take 2 tablets by mouth in the morning and 2 tablets at noon and 2 tablets in the evening. Do all this for 5 days. [facility] omeprazole 10 mg capsule 12-30 19:26: 59 12-30 00:00 :00 No 10mg Take 10 mg by mouth daily. [facility] norelgestro min-ethinyl estradiol (XULANE) 150-35 mcg/24 hr patch 12-30 00:00: 00 04-27 00:00 :00 No [id number] 1{patch } Apply 1 Patch to skin weekly. For 3 weeks, followed by 1 week no ptach [facility] ibuprofen 600 mg tablet 03-17 00:00: 00 12-30 00:00 :00 No [id number] 600mg Take 1 tablet by mouth every 6 (six) hours as needed for Pain (scale 4-6). [facility] cetirizine HCl (ZYRTEC ORAL) 06-27 15:45: 25 Yes Take by mouth. [facility] ibuprofen 600 mg tablet 2019-06 00:00: 00 06-27 00:00 :00 No [id number] 600mg Take 1 tablet by mouth every 6 (six) hours as needed for Pain (scale 4-6). [facility] ondansetron (ZOFRAN ODT) 4 mg disintegrat ing tablet 2019-06 00:00: 00 06-27 00:00 :00 No [id number] 4mg Take 1 tablet by mouth every 8 (eight) hours as needed for Nausea and Vomiting (N/V). [facility] traMADol 50 mg tablet 12-04 00:00: 00 06-27 00:00 :00 No [id number] 50mg Take 1 tablet by mouth every 6 (six) hours as needed (pain). [facility] proMETHazin e 25 mg tablet 12-04 00:00: 06-27 00:00 :00 No [id number] 25mg Take 1 tablet by mouth every 6 (six) hours as needed for Nausea and Vomiting (N/V). [facility] ibuprofen 600 mg tablet 11-14 00:00: 00 06-27 00:00 :00 No [id number] 600mg Take 1 tablet by mouth every 6 (six) hours as needed for Pain (scale 4-6). [facility] acetaminoph en-codeine 300-30 mg tablet 11-14 00:00: 06-27 00:00 :00 No [id number] 1{tbl} Take 1 tablet by mouth every 4 (four) hours as needed for Pain (scale 4-6). [facility] ondansetron 4 mg disintegrat ing tablet 08-30 00:00: 00 06-27 00:00 :00 No [id number] 4mg Take 1 tablet by mouth every 4 (four) hours as needed for Nausea and Vomiting (N/V). [facility] acetaminoph en-codeine 300-30 mg tablet 08-30 00:00: 00 06-27 00:00 :00 No [id number] 1{tbl} Take 1-2 tablets by mouth every 6 (six) hours as needed (cough). [facility] ibuprofen 800 mg tablet 08-30 00:00: 00 06-27 00:00 :00 No [id number] 800mg Take 1 tablet by mouth every 8 (eight) hours as needed for Pain (scale 4-6). [facility] sod chlor-bicar b-squeez bottle (NEILMED SINUS RINSE COMPLETE) pkdv 2018-06 00:00: 00 06-27 00:00 :00 No [id number] 1{bottl e} Use 1 Bottle in each nostril 2 (two) times daily. Use in hot shower 1 hour before bedtime [facility] promethazin e-codeine 6.25-10 mg/5 mL syrup 2018-06 00:00: 00 06-27 00:00 :00 No [id number] 5mL Take 5 mL by mouth 4 (four) times daily as needed for Cough. [facility] traMADol (ULTRAM) 50 mg tablet 2018-06 00:00: 00 06-27 00:00 :00 No [id number] 50mg Take 1 tablet by mouth every 8 (eight) hours as needed for Pain (scale 4-6). [facility] Immunizations Ordered Immunization Name Filled Immunization Name Date Status Comments Source [facility] 2020-06-27 00:00:00 Completed [facility] HPV9 2020-06-27 00:00:00 Completed [facility] 2020-06-27 00:00:00 Completed [facility] 2020-06-27 00:00:00 Completed [facility] HPV9 2020-06-27 00:00:00 Completed [facility] 2020-06-27 00:00:00 Completed [facility] 2020-06-27 00:00:00 Completed [facility] 2020-06-27 00:00:00 Completed [facility] HPV9 2020-06-27 00:00:00 Completed [facility] HPV9 2020-06-27 00:00:00 Completed [facility] HPV9 2020-06-27 00:00:00 Completed [facility] HPV9 2020-06-27 00:00:00 Completed [facility] HPV9 2020-06-27 00:00:00 Completed [facility] 2020-06-27 00:00:00 Completed [facility] 2020-06-27 00:00:00 Completed [facility] HPV9 2020-06-27 00:00:00 Completed [facility] HPV9 2020-06-27 00:00:00 Completed [facility] HPV9 2020-06-27 00:00:00 Completed [facility] HPV9 2020-06-27 00:00:00 Completed [facility] HPV9 2020-06-27 00:00:00 Completed [facility] HPV9 2020-06-27 00:00:00 Completed [facility] HPV9 2020-06-27 00:00:00 Completed [facility] HPV9 2020-06-27 00:00:00 Completed [facility] HPV9 2020-06-27 00:00:00 Completed [facility] HPV9 2020-06-27 00:00:00 Completed [facility] HPV9 2020-06-27 00:00:00 Completed [facility] HPV9 2020-06-27 00:00:00 Completed [facility] HPV9 2020-06-27 00:00:00 Completed [facility] HPV9 2020-06-27 00:00:00 Completed [facility] HPV9 2020-06-27 00:00:00 Completed [facility] HPV9 2020-06-27 00:00:00 Completed [facility] HPV9 2020-06-27 00:00:00 Completed [facility] HPV9 2020-06-27 00:00:00 Completed [facility] HPV9 2020-06-27 00:00:00 Completed [facility] HPV9 2020-06-27 00:00:00 Completed [facility] HPV9 2020-06-27 00:00:00 Completed [facility] HPV9 2020-06-27 00:00:00 Completed [facility] HPV9 2020-06-27 00:00:00 Completed [facility] HPV9 2020-06-27 00:00:00 Completed [facility] HPV9 2020-06-27 00:00:00 Completed [facility] HPV9 2020-06-27 00:00:00 Completed [facility] HPV9 2020-06-27 00:00:00 Completed [facility] HPV9 2020-06-27 00:00:00 Completed [facility] HPV9 2020-06-27 00:00:00 Completed [facility] HPV9 2020-06-27 00:00:00 Completed [facility] HPV9 2020-06-27 00:00:00 Completed [facility] HPV9 2020-06-27 00:00:00 Completed [facility] HPV9 2020-06-27 00:00:00 Completed [facility] HPV9 2020-06-27 00:00:00 Completed [facility] HPV9 2020-06-27 00:00:00 Completed [facility] HPV9 2020-06-27 00:00:00 Completed [facility] HPV9 2020-06-27 00:00:00 Completed [facility] HPV9 2020-06-27 00:00:00 Completed [facility] HPV9 2020-06-27 00:00:00 Completed [facility] HPV9 2020-06-27 00:00:00 Completed [facility] HPV9 2020-06-27 00:00:00 Completed [facility] HPV9 2020-06-27 00:00:00 Completed [facility] HPV9 2020-06-27 00:00:00 Completed [facility] HPV9 2020-06-27 00:00:00 Completed [facility] HPV9 2020-06-27 00:00:00 Completed [facility] HPV9 2020-06-27 00:00:00 Completed [facility] TDAP 2017-12-21 00:00:00 Completed [facility] TDAP 2017-12-21 00:00:00 Completed [facility] TDAP 2017-12-21 00:00:00 Completed [facility] TDAP 2017-12-21 00:00:00 Completed [facility] TDAP 2017-12-21 00:00:00 Completed [facility] TDAP 2017-12-21 00:00:00 Completed [facility] TDAP 2017-12-21 00:00:00 Completed [facility] TDAP 2017-12-21 00:00:00 Completed [facility] TDAP 2017-12-21 00:00:00 Completed [facility] TDAP 2017-12-21 00:00:00 Completed [facility] TDAP 2017-12-21 00:00:00 Completed [facility] TDAP 2017-12-21 00:00:00 Completed [facility] TDAP 2017-12-21 00:00:00 Completed [facility] TDAP 2017-12-21 00:00:00 Completed [facility] TDAP 2017-12-21 00:00:00 Completed [facility] TDAP 2017-12-21 00:00:00 Completed [facility] TDAP 2017-12-21 00:00:00 Completed [facility] TDAP 2017-12-21 00:00:00 Completed [facility] TDAP 2017-12-21 00:00:00 Completed [facility] TDAP 2017-12-21 00:00:00 Completed [facility] TDAP 2017-12-21 00:00:00 Completed [facility] TDAP 2017-12-21 00:00:00 Completed [facility] TDAP 2017-12-21 00:00:00 Completed [facility] [facility] TDAP 2017-12-21 00:00:00 Completed [facility] TDAP 2017-12-21 00:00:00 Completed [facility] TDAP 2017-12-21 00:00:00 Completed [facility] TDAP 2017-12-21 00:00:00 Completed [facility] TDAP 2017-12-21 00:00:00 Completed [facility] TDAP 2017-12-21 00:00:00 Completed [facility] TDAP 2017-12-21 00:00:00 Completed [facility] TDAP 2017-12-21 00:00:00 Completed [facility] TDAP 2017-12-21 00:00:00 Completed [facility] TDAP 2017-12-21 00:00:00 Completed [facility] TDAP 2017-12-21 00:00:00 Completed [facility] TDAP 2017-12-21 00:00:00 Completed [facility] TDAP 2017-12-21 00:00:00 Completed [facility] TDAP 2017-12-21 00:00:00 Completed [facility] TDAP 2017-12-21 00:00:00 Completed [facility] TDAP 2017-12-21 00:00:00 Completed [facility] TDAP 2017-12-21 00:00:00 Completed [facility] TDAP 2017-12-21 00:00:00 Completed [facility] TDAP 2017-12-21 00:00:00 Completed [facility] TDAP 2017-12-21 00:00:00 Completed [facility] TDAP 2017-12-21 00:00:00 Completed [facility] TDAP 2017-12-21 00:00:00 Completed [facility] TDAP 2017-12-21 00:00:00 Completed [facility] TDAP 2017-12-21 00:00:00 Completed [facility] TDAP 2017-12-21 00:00:00 Completed [facility] TDAP 2017-12-21 00:00:00 Completed [facility] TDAP 2017-12-21 00:00:00 Completed [facility] TDAP 2017-12-21 00:00:00 Completed [facility] TDAP 2017-12-21 00:00:00 Completed [facility] TDAP 2017-12-21 00:00:00 Completed [facility] TDAP 2017-12-21 00:00:00 Completed [facility] TDAP 2017-12-21 00:00:00 Completed [facility] TDAP 2017-12-21 00:00:00 Completed [facility] TDAP 2017-12-21 00:00:00 Completed [facility] TDAP 2017-12-21 00:00:00 Completed [facility] TDAP 2017-12-21 00:00:00 Completed [facility] TDAP 2017-12-21 00:00:00 Completed [facility] TDAP 2017-12-21 00:00:00 Completed [facility] TDAP 2016-07-09 00:00:00 Completed [facility] TDAP 2016-07-09 00:00:00 Completed [facility] TDAP 2016-07-09 00:00:00 Completed [facility] TDAP 2016-07-09 00:00:00 Completed [facility] TDAP 2016-07-09 00:00:00 Completed [facility] TDAP 2016-07-09 00:00:00 Completed [facility] TDAP 2016-07-09 00:00:00 Completed [facility] TDAP 2016-07-09 00:00:00 Completed [facility] TDAP 2016-07-09 00:00:00 Completed [facility] TDAP 2016-07-09 00:00:00 Completed [facility] TDAP 2016-07-09 00:00:00 Completed [facility] TDAP 2016-07-09 00:00:00 Completed [facility] TDAP 2016-07-09 00:00:00 Completed [facility] TDAP 2016-07-09 00:00:00 Completed [facility] TDAP 2016-07-09 00:00:00 Completed [facility] TDAP 2016-07-09 00:00:00 Completed [facility] TDAP 2016-07-09 00:00:00 Completed [facility] TDAP 2016-07-09 00:00:00 Completed [facility] TDAP 2016-07-09 00:00:00 Completed [facility] TDAP 2016-07-09 00:00:00 Completed [facility] TDAP 2016-07-09 00:00:00 Completed [facility] TDAP 2016-07-09 00:00:00 Completed [facility] TDAP 2016-07-09 00:00:00 Completed [facility] TDAP 2016-07-09 00:00:00 Completed [facility] TDAP 2016-07-09 00:00:00 Completed [facility] TDAP 2016-07-09 00:00:00 Completed [facility] TDAP 2016-07-09 00:00:00 Completed [facility] TDAP 2016-07-09 00:00:00 Completed [facility] TDAP 2016-07-09 00:00:00 Completed [facility] TDAP 2016-07-09 00:00:00 Completed [facility] TDAP 2016-07-09 00:00:00 Completed [facility] TDAP 2016-07-09 00:00:00 Completed [facility] TDAP 2016-07-09 00:00:00 Completed [facility] TDAP 2016-07-09 00:00:00 Completed [facility] TDAP 2016-07-09 00:00:00 Completed [facility] TDAP 2016-07-09 00:00:00 Completed [facility] TDAP 2016-07-09 00:00:00 Completed [facility] TDAP 2016-07-09 00:00:00 Completed [facility] TDAP 2016-07-09 00:00:00 Completed [facility] TDAP 2016-07-09 00:00:00 Completed [facility] TDAP 2016-07-09 00:00:00 Completed [facility] TDAP 2016-07-09 00:00:00 Completed [facility] TDAP 2016-07-09 00:00:00 Completed [facility] TDAP 2016-07-09 00:00:00 Completed [facility] TDAP 2016-07-09 00:00:00 Completed [facility] TDAP 2016-07-09 00:00:00 Completed [facility] TDAP 2016-07-09 00:00:00 Completed [facility] TDAP 2016-07-09 00:00:00 Completed [facility] TDAP 2016-07-09 00:00:00 Completed [facility] TDAP 2016-07-09 00:00:00 Completed [facility] TDAP 2016-07-09 00:00:00 Completed [facility] TDAP 2016-07-09 00:00:00 Completed [facility] TDAP 2016-07-09 00:00:00 Completed [facility] TDAP 2016-07-09 00:00:00 Completed [facility] TDAP 2016-07-09 00:00:00 Completed [facility] TDAP 2016-07-09 00:00:00 Completed [facility] TDAP 2016-07-09 00:00:00 Completed [facility] TDAP 2016-07-09 00:00:00 Completed [facility] TDAP 2016-07-09 00:00:00 Completed [facility] TDAP 2016-07-09 00:00:00 Completed [facility] TDAP 2016-07-09 00:00:00 Completed [facility] Influenza Virus Vaccine Quad IM 3+ YRS 2016-03-25 00:00:00 Completed [facility] Influenza Virus Vaccine Quad IM 3+ YRS 2016-03-25 00:00:00 Completed [facility] Influenza Virus Vaccine Quad IM 3+ YRS 2016-03-25 00:00:00 Completed [facility] Influenza Virus Vaccine Quad IM 3+ YRS 2016-03-25 00:00:00 Completed [facility] Influenza Virus Vaccine Quad IM 3+ YRS 2016-03-25 00:00:00 Completed [facility] Influenza Virus Vaccine Quad IM 3+ YRS 2016-03-25 00:00:00 Completed [facility] Influenza Virus Vaccine Quad IM 3+ YRS 2016-03-25 00:00:00 Completed [facility] Influenza Virus Vaccine Quad IM 3+ YRS 2016-03-25 00:00:00 Completed [facility] Influenza Virus Vaccine Quad IM 3+ YRS 2016-03-25 00:00:00 Completed [facility] Influenza Virus Vaccine Quad IM 3+ YRS 2016-03-25 00:00:00 Completed [facility] Influenza Virus Vaccine Quad IM 3+ YRS 2016-03-25 00:00:00 Completed [facility] Influenza Virus Vaccine Quad IM 3+ YRS 2016-03-25 00:00:00 Completed [facility] Influenza Virus Vaccine Quad IM 3+ YRS 2016-03-25 00:00:00 Completed [facility] Influenza Virus Vaccine Quad IM 3+ YRS 2016-03-25 00:00:00 Completed [facility] Influenza Virus Vaccine Quad IM 3+ YRS 2016-03-25 00:00:00 Completed [facility] Influenza Virus Vaccine Quad IM 3+ YRS 2016-03-25 00:00:00 Completed [facility] Influenza Virus Vaccine Quad IM 3+ YRS 2016-03-25 00:00:00 Completed [facility] Influenza Virus Vaccine Quad IM 3+ YRS 2016-03-25 00:00:00 Completed [facility] Influenza Virus Vaccine Quad IM 3+ YRS 2016-03-25 00:00:00 Completed [facility] Influenza Virus Vaccine Quad IM 3+ YRS 2016-03-25 00:00:00 Completed [facility] Influenza Virus Vaccine Quad IM 3+ YRS 2016-03-25 00:00:00 Completed [facility] Influenza Virus Vaccine Quad IM 3+ YRS 2016-03-25 00:00:00 Completed [facility] Influenza Virus Vaccine Quad IM 3+ YRS 2016-03-25 00:00:00 Completed [facility] Influenza Virus Vaccine Quad IM 3+ YRS 2016-03-25 00:00:00 Completed [facility] Influenza Virus Vaccine Quad IM 3+ YRS 2016-03-25 00:00:00 Completed [facility] Influenza Virus Vaccine Quad IM 3+ YRS 2016-03-25 00:00:00 Completed [facility] Influenza Virus Vaccine Quad IM 3+ YRS 2016-03-25 00:00:00 Completed [facility] Influenza Virus Vaccine Quad IM 3+ YRS 2016-03-25 00:00:00 Completed [facility] Influenza Virus Vaccine Quad IM 3+ YRS 2016-03-25 00:00:00 Completed [facility] Influenza Virus Vaccine Quad IM 3+ YRS 2016-03-25 00:00:00 Completed [facility] Influenza Virus Vaccine Quad IM 3+ YRS 2016-03-25 00:00:00 Completed [facility] Influenza Virus Vaccine Quad IM 3+ YRS 2016-03-25 00:00:00 Completed [facility] Influenza Virus Vaccine Quad IM 3+ YRS 2016-03-25 00:00:00 Completed [facility] Influenza Virus Vaccine Quad IM 3+ YRS 2016-03-25 00:00:00 Completed [facility] Influenza Virus Vaccine Quad IM 3+ YRS 2016-03-25 00:00:00 Completed [facility] Influenza Virus Vaccine Quad IM 3+ YRS 2016-03-25 00:00:00 Completed [facility] Influenza Virus Vaccine Quad IM 3+ YRS 2016-03-25 00:00:00 Completed [facility] Influenza Virus Vaccine Quad IM 3+ YRS 2016-03-25 00:00:00 Completed [facility] Influenza Virus Vaccine Quad IM 3+ YRS 2016-03-25 00:00:00 Completed [facility] Influenza Virus Vaccine Quad IM 3+ YRS 2016-03-25 00:00:00 Completed [facility] Influenza Virus Vaccine Quad IM 3+ YRS 2016-03-25 00:00:00 Completed [facility] Influenza Virus Vaccine Quad IM 3+ YRS 2016-03-25 00:00:00 Completed [facility] Influenza Virus Vaccine Quad IM 3+ YRS 2016-03-25 00:00:00 Completed [facility] Influenza Virus Vaccine Quad IM 3+ YRS 2016-03-25 00:00:00 Completed [facility] Influenza Virus Vaccine Quad IM 3+ YRS 2016-03-25 00:00:00 Completed [facility] Influenza Virus Vaccine Quad IM 3+ YRS 2016-03-25 00:00:00 Completed [facility] Influenza Virus Vaccine Quad IM 3+ YRS 2016-03-25 00:00:00 Completed [facility] Influenza Virus Vaccine Quad IM 3+ YRS 2016-03-25 00:00:00 Completed [facility] Influenza Virus Vaccine Quad IM 3+ YRS 2016-03-25 00:00:00 Completed [facility] Influenza Virus Vaccine Quad IM 3+ YRS 2016-03-25 00:00:00 Completed [facility] Influenza Virus Vaccine Quad IM 3+ YRS 2016-03-25 00:00:00 Completed [facility] Influenza Virus Vaccine Quad IM 3+ YRS 2016-03-25 00:00:00 Completed [facility] Influenza Virus Vaccine Quad IM 3+ YRS 2016-03-25 00:00:00 Completed [facility] Influenza Virus Vaccine Quad IM 3+ YRS 2016-03-25 00:00:00 Completed [facility] Influenza Virus Vaccine Quad IM 3+ YRS 2016-03-25 00:00:00 Completed [facility] Influenza Virus Vaccine Quad IM 3+ YRS 2016-03-25 00:00:00 Completed [facility] Influenza Virus Vaccine Quad IM 3+ YRS 2016-03-25 00:00:00 Completed [facility] Influenza Virus Vaccine Quad IM 3+ YRS 2016-03-25 00:00:00 Completed [facility] Influenza Virus Vaccine Quad IM 3+ YRS 2016-03-25 00:00:00 Completed [facility] Influenza Virus Vaccine Quad IM 3+ YRS 2016-03-25 00:00:00 Completed [facility] Influenza Virus Vaccine Quad IM 3+ YRS 2016-03-25 00:00:00 Completed [facility] Influenza Virus Vaccine Quad IM 3+ YRS Unknown Completed [facility] TDAP Unknown Completed [facility] TDAP Unknown Completed [facility] [id number] Unknown Completed [facility] Influenza Virus Vaccine Quad IM 3+ YRS Unknown Completed [facility] TDAP Unknown [facility]pleted [facility] TDAP Unknown [facility]pleted [facility] [id number] Unknown Completed [facility] Influenza Virus Vaccine Quad IM 3+ YRS Unknown Completed [facility] TDAP Unknown [facility]pleted [facility] TDAP Unknown [facility]pleted [facility] HPV9 Unknown Completed [facility] Influenza Virus Vaccine Quad IM 3+ YRS Unknown Completed [facility] TDAP Unknown [facility]pleted [facility] TDAP Unknown [facility]pleted [facility] HPV9 Unknown Completed [facility] Influenza Virus Vaccine Quad IM 3+ YRS Unknown Completed [facility] TDAP Unknown [facility]pleted [facility] TDAP Unknown [facility]pleted [facility] HPV9 Unknown Completed [facility] Influenza Virus Vaccine Quad IM 3+ YRS Unknown Completed [facility] TDAP Unknown [facility]pleted [facility] TDAP Unknown [facility]pleted [facility] HPV9 Unknown Completed [facility] Influenza Virus Vaccine Quad IM 3+ YRS Unknown Completed [facility] TDAP Unknown [facility]pleted [facility] TDAP Unknown [facility]pleted [facility] [id number] Unknown Completed [facility] Influenza Virus Vaccine Quad IM 3+ YRS Unknown Completed [facility] TDAP Unknown [facility]pleted [facility] TDAP Unknown [facility]pleted [facility] HPV9 Unknown Completed [facility] Influenza Virus Vaccine Quad IM 3+ YRS Unknown Completed [facility] TDAP Unknown [facility]pleted [facility] TDAP Unknown [facility]pleted [facility] HPV9 Unknown Completed [facility] Influenza Virus Vaccine Quad IM 3+ YRS Unknown Completed [facility] TDAP Unknown [facility]pleted [facility] TDAP Unknown [facility]pleted [facility] HPV9 Unknown Completed [facility] Influenza Virus Vaccine Quad IM 3+ YRS Unknown Completed [facility] TDAP Unknown [facility]pleted [facility] TDAP Unknown [facility]pleted [facility] HPV9 Unknown Completed [facility] Influenza Virus Vaccine Quad IM 3+ YRS Unknown Completed [facility] TDAP Unknown [facility]pleted [facility] TDAP Unknown [facility]pleted [facility] Influenza Virus Vaccine Quad IM 3+ YRS Unknown Completed [facility] TDAP Unknown [facility]pleted [facility] TDAP Unknown [facility]pleted [facility] HPV9 Unknown Completed [facility] Influenza Virus Vaccine Quad IM 3+ YRS Unknown Completed [facility] TDAP Unknown [facility]pleted [facility] TDAP Unknown [facility]pleted [facility] HPV9 Unknown Completed [facility] Influenza Virus Vaccine Quad IM 3+ YRS Unknown Completed [facility] TDAP Unknown [facility]pleted [facility] TDAP Unknown [facility]pleted [facility] HPV9 Unknown Completed [facility] Influenza Virus Vaccine Quad IM 3+ YRS Unknown Completed [facility] TDAP Unknown [facility]pleted [facility] TDAP Unknown [facility]pleted [facility] HPV9 Unknown [facility]pleted [facility] Influenza Virus Vacc[facility] Quad IM 3+ YRS Unknown Completed [facility] [facility] TDAP Unknown Completed [facility] TDAP Unknown [facility]pleted [facility] HPV9 Unknown Completed [facility] Influenza Virus Vaccine Quad IM 3+ YRS Unknown Completed [facility] TDAP Unknown [facility]pleted [facility] TDAP Unknown [facility]pleted [facility] HPV9 Unknown Completed [facility] Influenza Virus Vaccine Quad IM 3+ YRS Unknown Completed [facility] TDAP Unknown [facility]pleted [facility] TDAP Unknown [facility]pleted [facility] HPV9 Unknown Completed [facility] Influenza Virus Vaccine Quad IM 3+ YRS Unknown Completed [facility] TDAP Unknown [facility]pleted [facility] TDAP Unknown [facility]pleted [facility] HPV9 Unknown Completed [facility] Influenza Virus Vaccine Quad IM 3+ YRS Unknown Completed [facility] TDAP Unknown [facility]pleted [facility] TDAP Unknown [facility]pleted [facility] HPV9 Unknown Completed [facility] Influenza Virus Vaccine Quad IM 3+ YRS Unknown Completed [facility] TDAP Unknown [facility]pleted [facility] TDAP Unknown [facility]pleted [facility] HPV9 Unknown Completed [facility] Influenza Virus Vaccine Quad IM 3+ YRS Unknown Completed [facility] TDAP Unknown [facility]pleted [facility] TDAP Unknown [facility]pleted [facility] HPV9 Unknown Completed [facility] Influenza Virus Vaccine Quad IM 3+ YRS Unknown Completed [facility] TDAP Unknown [facility]pleted [facility] TDAP Unknown [facility]pleted [facility] HPV9 Unknown Completed [facility] Influenza Virus Vaccine Quad IM 3+ YRS Unknown Completed [facility] TDAP Unknown [facility]pleted [facility] TDAP Unknown [facility]pleted [facility] HPV9 Unknown Completed [facility] Influenza Virus Vaccine Quad IM 3+ YRS Unknown Completed [facility] TDAP Unknown [facility]pleted [facility] TDAP Unknown [facility]pleted [facility] HPV9 Unknown Completed [facility] Influenza Virus Vaccine Quad IM 3+ YRS Unknown Completed [facility] TDAP Unknown [facility]pleted [facility] TDAP Unknown [facility]pleted [facility] HPV9 Unknown Completed [facility] Influenza Virus Vaccine Quad IM 3+ YRS Unknown Completed [facility] TDAP Unknown [facility]pleted [facility] TDAP Unknown [facility]pleted [facility] HPV9 Unknown Completed [facility] Influenza Virus Vaccine Quad IM 3+ YRS Unknown Completed [facility] TDAP Unknown [facility]pleted [facility] TDAP Unknown [facility]pleted [facility] HPV9 Unknown Completed [facility] Influenza Virus Vaccine Quad IM 3+ YRS Unknown Completed [facility] TDAP Unknown [facility]pleted [facility] TDAP Unknown [facility]pleted [facility] HPV9 Unknown Completed [facility] Influenza Virus Vaccine Quad IM 3+ YRS Unknown Completed [facility] TDAP Unknown [facility]pleted [facility] TDAP Unknown [facility]pleted [facility] HPV9 Unknown Completed [facility] Influenza Virus Vaccine Quad IM 3+ YRS Unknown Completed [facility] TDAP Unknown [facility]pleted [facility] TDAP Unknown [facility]pleted [facility] HPV9 Unknown Completed [facility] Influenza Virus Vaccine Quad IM 3+ YRS Unknown Completed [facility] TDAP Unknown [facility]pleted [facility] TDAP Unknown [facility]pleted [facility] HPV9 Unknown Completed [facility] Influenza Virus Vaccine Quad IM 3+ YRS Unknown Completed [facility] TDAP Unknown [facility]pleted [facility] TDAP Unknown [facility]pleted [facility] HPV9 Unknown Completed [facility] Influenza Virus Vaccine Quad IM 3+ YRS Unknown Completed [facility] TDAP Unknown [facility]pleted [facility] TDAP Unknown [facility]pleted [facility] HPV9 Unknown Completed [facility] Influenza Virus Vaccine Quad IM 3+ YRS Unknown Completed [facility] TDAP Unknown [facility]pleted [facility] TDAP Unknown [facility]pleted [facility] HPV9 Unknown Completed [facility] Influenza Virus Vaccine Quad IM 3+ YRS Unknown Completed [facility] TDAP Unknown [facility]pleted [facility] TDAP Unknown [facility]pleted [facility] HPV9 Unknown Completed [facility] Influenza Virus Vaccine Quad IM 3+ YRS Unknown Completed [facility] TDAP Unknown [facility]pleted [facility] TDAP Unknown [facility]pleted [facility] HPV9 Unknown Completed [facility] Influenza Virus Vaccine Quad IM 3+ YRS Unknown Completed [facility] TDAP Unknown [facility]pleted [facility] TDAP Unknown [facility]pleted [facility] HPV9 Unknown Completed [facility] Influenza Virus Vaccine Quad IM 3+ YRS Unknown Completed [facility] TDAP Unknown [facility]pleted [facility] TDAP Unknown [facility]pleted [facility] HPV9 Unknown Completed [facility] Influenza Virus Vaccine Quad IM 3+ YRS Unknown Completed [facility] TDAP Unknown [facility]pleted [facility] TDAP Unknown [facility]pleted [facility] HPV9 Unknown Completed [facility] Influenza Virus Vaccine Quad IM 3+ YRS Unknown Completed [facility] TDAP Unknown [facility]pleted [facility] TDAP Unknown [facility]pleted [facility] HPV9 Unknown Completed [facility] Influenza Virus Vaccine Quad IM 3+ YRS Unknown Completed [facility] TDAP Unknown [facility]pleted [facility] TDAP Unknown [facility]pleted [facility] HPV9 Unknown Completed [facility] Influenza Virus Vaccine Quad IM 3+ YRS Unknown Completed [facility] TDAP Unknown [facility]pleted [facility] TDAP Unknown [facility]pleted [facility] HPV9 Unknown Completed [facility] Influenza Virus Vaccine Quad IM 3+ YRS Unknown Completed [facility] TDAP Unknown [facility]pleted [facility] TDAP Unknown [facility]pleted [facility] HPV9 Unknown Completed [facility] Influenza Virus Vaccine Quad IM 3+ YRS Unknown Completed [facility] TDAP Unknown [facility]pleted [facility] TDAP Unknown [facility]pleted [facility] HPV9 Unknown Completed [facility] Influenza Virus Vaccine Quad IM 3+ YRS Unknown Completed [facility] TDAP Unknown [facility]pleted [facility] TDAP Unknown [facility]pleted [facility] HPV9 Unknown Completed [facility] Influenza Virus Vaccine Quad IM 3+ YRS Unknown Completed [facility] TDAP Unknown [facility]pleted [facility] TDAP Unknown [facility]pleted [facility] HPV9 Unknown Completed [facility] Influenza Virus Vaccine Quad IM 3+ YRS Unknown Completed [facility] TDAP Unknown [facility]pleted [facility] TDAP Unknown [facility]pleted [facility] HPV9 Unknown Completed [facility] Influenza Virus Vaccine Quad IM 3+ YRS Unknown Completed [facility] TDAP Unknown [facility]pleted [facility] TDAP Unknown [facility]pleted [facility] HPV9 Unknown Completed [facility] Influenza Virus Vaccine Quad IM 3+ YRS Unknown Completed [facility] TDAP Unknown [facility]pleted [facility] TDAP Unknown [facility]pleted [facility] HPV9 Unknown Completed [facility] Influenza Virus Vaccine Quad IM 3+ YRS Unknown Completed [facility] TDAP Unknown [facility]pleted [facility] TDAP Unknown [facility]pleted [facility] HPV9 Unknown Completed [facility] Influenza Virus Vaccine Quad IM 3+ YRS Unknown Completed [facility] TDAP Unknown [facility]pleted [facility] TDAP Unknown [facility]pleted [facility] HPV9 Unknown Completed [facility] Influenza Virus Vaccine Quad IM 3+ YRS Unknown Completed [facility] TDAP Unknown [facility]pleted [facility] TDAP Unknown [facility]pleted [facility] HPV9 Unknown Completed [facility] Influenza Virus Vaccine Quad IM 3+ YRS Unknown Completed [facility] TDAP Unknown [facility]pleted [facility] TDAP Unknown [facility]pleted [facility] HPV9 Unknown Completed [facility] Influenza Virus Vaccine Quad IM 3+ YRS Unknown Completed [facility] TDAP Unknown [facility]pleted [facility] TDAP Unknown [facility]pleted [facility] HPV9 Unknown Completed [facility] Influenza Virus Vaccine Quad IM 3+ YRS Unknown Completed [facility] TDAP Unknown [facility]pleted [facility] TDAP Unknown [facility]pleted [facility] HPV9 Unknown Completed [facility] Influenza Virus Vaccine Quad IM 3+ YRS Unknown Completed [facility] TDAP Unknown [facility]pleted [facility] TDAP Unknown [facility]pleted [facility] HPV9 Unknown Completed [facility] Influenza Virus Vaccine Quad IM 3+ YRS Unknown Completed [facility] TDAP Unknown [facility]pleted [facility] TDAP Unknown [facility]pleted [facility] HPV9 Unknown Completed [facility] Influenza Virus Vaccine Quad IM 3+ YRS Unknown Completed [facility] TDAP Unknown [facility]pleted [facility] TDAP Unknown [facility]pleted [facility] HPV9 Unknown Completed [facility] Influenza Virus Vaccine Quad IM 3+ YRS Unknown Completed [facility] TDAP Unknown [facility]pleted [facility] TDAP Unknown [facility]pleted [facility] HPV9 Unknown Completed [facility] Influenza Virus Vaccine Quad IM 3+ YRS Unknown Completed [facility] TDAP Unknown [facility]pleted [facility] TDAP Unknown [facility]pleted [facility] HPV9 Unknown Completed [facility] Influenza Virus Vaccine Quad IM 3+ YRS Unknown Completed [facility] TDAP Unknown [facility]pleted [facility] TDAP Unknown [facility]pleted [facility] HPV9 Unknown Completed [facility] Influenza Virus Vaccine Quad IM 3+ YRS Unknown Completed [facility] TDAP Unknown [facility]pleted [facility] TDAP Unknown [facility]pleted [facility] HPV9 Unknown Completed [facility] Influenza Virus Vaccine Quad IM 3+ YRS Unknown Completed [facility] TDAP Unknown [facility]pleted [facility] TDAP Unknown [facility]pleted [facility] HPV9 Unknown Completed [facility] Influenza Virus Vaccine Quad IM 3+ YRS Unknown Completed [facility] TDAP Unknown [facility]pleted [facility] TDAP Unknown [facility]pleted [facility] HPV9 Unknown Completed [facility] Influenza Virus Vaccine Quad IM 3+ YRS Unknown Completed [facility] TDAP Unknown [facility]pleted [facility] TDAP Unknown [facility]pleted [facility] HPV9 Unknown Completed [facility] Influenza Virus Vaccine Quad IM 3+ YRS Unknown Completed [facility] TDAP Unknown [facility]pleted [facility] TDAP Unknown [facility]pleted [facility] HPV9 Unknown Completed [facility] Influenza Virus Vaccine Quad IM 3+ YRS Unknown Completed [facility] TDAP Unknown [facility]pleted [facility] TDAP Unknown [facility]pleted [facility] HPV9 Unknown Completed [facility] Influenza Virus Vaccine Quad IM 3+ YRS Unknown Completed [facility] TDAP Unknown [facility]pleted [facility] TDAP Unknown [facility]pleted [facility] HPV9 Unknown Completed [facility] Influenza Virus Vaccine Quad IM 3+ YRS Unknown Completed [facility] TDAP Unknown [facility]pleted [facility] TDAP Unknown [facility]pleted [facility] HPV9 Unknown Completed [facility] Influenza Virus Vaccine Quad IM 3+ YRS Unknown Completed [facility] TDAP Unknown [facility]pleted [facility] TDAP Unknown [facility]pleted [facility] HPV9 Unknown Completed [facility] Influenza Virus Vaccine Quad IM 3+ YRS Unknown Completed [facility] TDAP Unknown [facility]pleted [facility] TDAP Unknown [facility]pleted [facility] HPV9 Unknown Completed [facility] Influenza Virus Vaccine Quad IM 3+ YRS Unknown Completed [facility] TDAP Unknown [facility]pleted [facility] TDAP Unknown [facility]pleted [facility] HPV9 Unknown Completed [facility] Influenza Virus Vaccine Quad IM 3+ YRS Unknown Completed [facility] TDAP Unknown [facility]pleted [facility] TDAP Unknown [facility]pleted [facility] HPV9 Unknown Completed [facility] Influenza Virus Vaccine Quad IM 3+ YRS Unknown Completed [facility] TDAP Unknown [facility]pleted [facility] TDAP Unknown [facility]pleted [facility] HPV9 Unknown Completed [facility] Influenza Virus Vaccine Quad IM 3+ YRS Unknown Completed [facility] TDAP Unknown [facility]pleted [facility] TDAP Unknown [facility]pleted [facility] HPV9 Unknown Completed [facility] Influenza Virus Vaccine Quad IM 3+ YRS Unknown Completed [facility] TDAP Unknown [facility]pleted [facility] TDAP Unknown [facility]pleted [facility] HPV9 Unknown Completed [facility] Influenza Virus Vaccine Quad IM 3+ YRS Unknown Completed [facility] TDAP Unknown [facility]pleted [facility] TDAP Unknown [facility]pleted [facility] HPV9 Unknown Completed [facility] Influenza Virus Vaccine Quad IM 3+ YRS Unknown Completed [facility] TDAP Unknown [facility]pleted [facility] TDAP Unknown [facility]pleted [facility] HPV9 Unknown Completed [facility] Influenza Virus Vaccine Quad IM 3+ YRS Unknown Completed [facility] TDAP Unknown [facility]pleted [facility] TDAP Unknown [facility]pleted [facility] HPV9 Unknown Completed [facility] Influenza Virus Vaccine Quad IM 3+ YRS Unknown Completed [facility] TDAP Unknown [facility]pleted [facility] TDAP Unknown [facility]pleted [facility] HPV9 Unknown Completed [facility] Influenza Virus Vaccine Quad IM 3+ YRS Unknown Completed [facility] TDAP Unknown [facility]pleted [facility] TDAP Unknown [facility]pleted [facility] HPV9 Unknown Completed [facility] Influenza Virus Vaccine Quad IM 3+ YRS Unknown Completed [facility] TDAP Unknown [facility]pleted [facility] TDAP Unknown [facility]pleted [facility] HPV9 Unknown Completed [facility] Influenza Virus Vaccine Quad IM 3+ YRS Unknown Completed [facility] TDAP Unknown [facility]pleted [facility] TDAP Unknown [facility]pleted [facility] HPV9 Unknown Completed [facility] Influenza Virus Vaccine Quad IM 3+ YRS Unknown Completed [facility] TDAP Unknown [facility]pleted [facility] TDAP Unknown [facility]pleted [facility] HPV9 Unknown Completed [facility] Influenza Virus Vaccine Quad IM 3+ YRS Unknown Completed [facility] TDAP Unknown [facility]pleted [facility] TDAP Unknown [facility]pleted [facility] HPV9 Unknown Completed [facility] Influenza Virus Vaccine Quad IM 3+ YRS Unknown Completed [facility] TDAP Unknown [facility]pleted [facility] TDAP Unknown [facility]pleted [facility] HPV9 Unknown Completed [facility] Influenza Virus Vaccine Quad IM 3+ YRS Unknown Completed [facility] TDAP Unknown [facility]pleted [facility] TDAP Unknown [facility]pleted [facility] HPV9 Unknown [facility]pleted [facility] Influenza Virus Vaccine Quad IM 3+ YRS Unknown Completed [facility] TDAP Unknown [facility]pleted [facility] TDAP Unknown [facility]pleted [facility] HPV9 Unknown [facility]pleted [facility] Influenza Virus Vaccine Quad IM 3+ YRS Unknown Completed [facility] TDAP Unknown [facility]pleted [facility] TDAP Unknown [facility]pleted [facility] HPV9 Unknown Completed [facility] Influenza Virus Vaccine Quad IM 3+ YRS Unknown Completed [facility] TDAP Unknown [facility]pleted [facility] TDAP Unknown [facility]pleted [facility] HPV9 Unknown Completed [facility] Influenza Virus Vaccine Quad IM 3+ YRS Unknown Completed [facility] TDAP Unknown [facility]pleted [facility] TDAP Unknown [facility]pleted [facility] HPV9 Unknown Completed [facility] Influenza Virus Vaccine Quad IM 3+ YRS Unknown Completed [facility] TDAP Unknown [facility]pleted [facility] TDAP Unknown [facility]pleted [facility] HPV9 Unknown Completed [facility] Influenza Virus Vaccine Quad IM 3+ YRS Unknown Completed [facility] TDAP Unknown [facility]pleted [facility] TDAP Unknown [facility]pleted [facility] HPV9 Unknown Completed [facility] Influenza Virus Vaccine Quad IM 3+ YRS Unknown Completed [facility] TDAP Unknown [facility]pleted [facility] TDAP Unknown [facility]pleted [facility] HPV9 Unknown Completed [facility] Influenza Virus Vaccine Quad IM 3+ YRS Unknown Completed [facility] TDAP Unknown [facility]pleted [facility] TDAP Unknown [facility]pleted [facility] HPV9 Unknown Completed [facility] Influenza Virus Vaccine Quad IM 3+ YRS Unknown Completed [facility] TDAP Unknown [facility]pleted [facility] TDAP Unknown [facility]pleted [facility] HPV9 Unknown Completed [facility] Influenza Virus Vaccine Quad IM 3+ YRS Unknown Completed [facility] TDAP Unknown [facility]pleted [facility] TDAP Unknown [facility]pleted [facility] HPV9 Unknown Completed [facility] Influenza Virus Vaccine Quad IM 3+ YRS Unknown Completed [facility] TDAP Unknown [facility]pleted [facility] TDAP Unknown [facility]pleted [facility] HPV9 Unknown Completed [facility] Influenza Virus Vaccine Quad IM 3+ YRS Unknown Completed [facility] TDAP Unknown [facility]pleted [facility] TDAP Unknown [facility]pleted [facility] HPV9 Unknown Completed [facility] Influenza Virus Vaccine Quad IM 3+ YRS Unknown Completed [facility] TDAP Unknown [facility]pleted [facility] TDAP Unknown [facility]pleted [facility] HPV9 Unknown Completed [facility] Influenza Virus Vaccine Quad IM 3+ YRS Unknown Completed [facility] TDAP Unknown [facility]pleted [facility] TDAP Unknown [facility]pleted [facility] HPV9 Unknown Completed [facility] Influenza Virus Vaccine Quad IM 3+ YRS Unknown Completed [facility] TDAP Unknown [facility]pleted [facility] TDAP Unknown [facility]pleted [facility] HPV9 Unknown Completed [facility] Influenza Virus Vaccine Quad IM 3+ YRS Unknown Completed [facility] TDAP Unknown [facility]pleted [facility] TDAP Unknown [facility]pleted [facility] HPV9 Unknown Completed [facility] Influenza Virus Vaccine Quad IM 3+ YRS Unknown Completed [facility] TDAP Unknown [facility]pleted [facility] TDAP Unknown [facility]pleted [facility] HPV9 Unknown Completed [facility] Influenza Virus Vaccine Quad IM 3+ YRS Unknown Completed [facility] TDAP Unknown [facility]pleted [facility] TDAP Unknown [facility]pleted [facility] HPV9 Unknown Completed [facility] Influenza Virus Vaccine Quad IM 3+ YRS Unknown Completed [facility] TDAP Unknown [facility]pleted [facility] TDAP Unknown [facility]pleted [facility] HPV9 Unknown Completed [facility] Influenza Virus Vaccine Quad IM 3+ YRS Unknown Completed [facility] TDAP Unknown [facility]pleted [facility] TDAP Unknown [facility]pleted [facility] HPV9 Unknown Completed [facility] Influenza Virus Vaccine Quad IM 3+ YRS Unknown Completed [facility] TDAP Unknown [facility]pleted [facility] TDAP Unknown [facility]pleted [facility] HPV9 Unknown Completed [facility] Influenza Virus Vaccine Quad IM 3+ YRS Unknown Completed [facility] TDAP Unknown [facility]pleted [facility] TDAP Unknown [facility]pleted [facility] HPV9 Unknown Completed [facility] Influenza Virus Vaccine Quad IM 3+ YRS Unknown Completed [facility] TDAP Unknown [facility]pleted [facility] TDAP Unknown [facility]pleted [facility] HPV9 Unknown Completed [facility] Influenza Virus Vaccine Quad IM 3+ YRS Unknown Completed [facility] TDAP Unknown [facility]pleted [facility] TDAP Unknown [facility]pleted [facility] HPV9 Unknown Completed [facility] Influenza Virus Vaccine Quad IM 3+ YRS Unknown Completed [facility] TDAP Unknown [facility]pleted [facility] TDAP Unknown [facility]pleted [facility] HPV9 Unknown Completed [facility] Influenza Virus Vaccine Quad IM 3+ YRS Unknown Completed [facility] TDAP Unknown [facility]pleted [facility] TDAP Unknown [facility]pleted [facility] HPV9 Unknown Completed [facility] Influenza Virus Vaccine Quad IM 3+ YRS Unknown Completed [facility] TDAP Unknown [facility]pleted [facility] TDAP Unknown [facility]pleted [facility] HPV9 Unknown Completed [facility] Influenza Virus Vaccine Quad IM 3+ YRS Unknown Completed [facility] TDAP Unknown [facility]pleted [facility] TDAP Unknown [facility]pleted [facility] HPV9 Unknown Completed [facility] Influenza Virus Vaccine Quad IM 3+ YRS Unknown Completed [facility] TDAP Unknown [facility]pleted [facility] TDAP Unknown [facility]pleted [facility] HPV9 Unknown [facility]pleted [facility] Influenza Virus Vaccine Quad IM 3+ YRS Unknown Completed [facility] TDAP Unknown [facility]pleted [facility] TDAP Unknown [facility]pleted [facility] HPV9 Unknown [facility]pleted [facility] Influenza Virus Vaccine Quad IM 3+ YRS Unknown Completed [facility] TDAP Unknown [facility]pleted [facility] TDAP Unknown [facility]pleted [facility] HPV9 Unknown Completed [facility] Influenza Virus Vaccine Quad IM 3+ YRS Unknown Completed [facility] TDAP Unknown [facility]pleted [facility] TDAP Unknown [facility]pleted [facility] HPV9 Unknown Completed [facility] Influenza Virus Vaccine Quad IM 3+ YRS Unknown Completed [facility] TDAP Unknown [facility]pleted [facility] TDAP Unknown [facility]pleted [facility] HPV9 Unknown Completed [facility] Influenza Virus Vaccine Quad IM 3+ YRS Unknown Completed [facility] TDAP Unknown [facility]pleted [facility] TDAP Unknown [facility]pleted [facility] HPV9 Unknown Completed [facility] Influenza Virus Vaccine Quad IM 3+ YRS Unknown Completed [facility] TDAP Unknown [facility]pleted [facility] TDAP Unknown [facility]pleted [facility] HPV9 Unknown [facility]pleted [facility] Influenza Virus Vaccine Quad IM 3+ YRS Unknown Completed [facility] TDAP Unknown [facility]pleted [facility] TDAP Unknown [facility]pleted [facility] HPV9 Unknown Completed [facility] Influenza Virus Vaccine Quad IM 3+ YRS Unknown Completed [facility] TDAP Unknown [facility]pleted [facility] TDAP Unknown [facility]pleted [facility] HPV9 Unknown Completed [facility] Influenza Virus Vaccine Quad IM 3+ YRS Unknown Completed [facility] TDAP Unknown [facility]pleted [facility] TDAP Unknown [facility]pleted [facility] HPV9 Unknown Completed [facility] Influenza Virus Vaccine Quad IM 3+ YRS Unknown Completed [facility] TDAP Unknown [facility]pleted [facility] TDAP Unknown [facility]pleted [facility] HPV9 Unknown Completed [facility] Influenza Virus Vaccine Quad IM 3+ YRS Unknown Completed [facility] TDAP Unknown [facility]pleted [facility] TDAP Unknown [facility]pleted [facility] HPV9 Unknown Completed [facility] Influenza Virus Vaccine Quad IM 3+ YRS Unknown Completed [facility] TDAP Unknown [facility]pleted [facility] TDAP Unknown [facility]pleted [facility] HPV9 Unknown Completed [facility] Influenza Virus Vaccine Quad IM 3+ YRS Unknown Completed [facility] TDAP Unknown [facility]pleted [facility] TDAP Unknown [facility]pleted [facility] HPV9 Unknown Completed [facility] Influenza Virus Vaccine Quad IM 3+ YRS Unknown Completed [facility] TDAP Unknown [facility]pleted [facility] TDAP Unknown [facility]pleted [facility] HPV9 Unknown Completed [facility] Influenza Virus Vaccine Quad IM 3+ YRS Unknown Completed [facility] TDAP Unknown [facility]pleted [facility] TDAP Unknown [facility]pleted [facility] HPV9 Unknown Completed [facility] Influenza Virus Vaccine Quad IM 3+ YRS Unknown Completed [facility] TDAP Unknown [facility]pleted [facility] TDAP Unknown [facility]pleted [facility] HPV9 Unknown Completed [facility] Influenza Virus Vaccine Quad IM 3+ YRS Unknown Completed [facility] TDAP Unknown [facility]pleted [facility] TDAP Unknown [facility]pleted [facility] HPV9 Unknown Completed [facility] Influenza Virus Vaccine Quad IM 3+ YRS Unknown Completed [facility] TDAP Unknown [facility]pleted [facility] TDAP Unknown [facility]pleted [facility] HPV9 Unknown Completed [facility] Influenza Virus Vaccine Quad IM 3+ YRS Unknown Completed [facility] TDAP Unknown [facility]pleted [facility] TDAP Unknown [facility]pleted [facility] HPV9 Unknown Completed [facility] Influenza Virus Vaccine Quad IM 3+ YRS Unknown Completed [facility] TDAP Unknown [facility]pleted [facility] TDAP Unknown [facility]pleted [facility] HPV9 Unknown Completed [facility] Influenza Virus Vaccine Quad IM 3+ YRS Unknown Completed [facility] TDAP Unknown [facility]pleted [facility] TDAP Unknown [facility]pleted [facility] HPV9 Unknown Completed [facility] Influenza Virus Vaccine Quad IM 3+ YRS Unknown Completed [facility] TDAP Unknown [facility]pleted [facility] TDAP Unknown [facility]pleted [facility] HPV9 Unknown [facility]pleted [facility] Influenza Virus Vaccine Quad IM 3+ YRS Unknown Completed [facility] TDAP Unknown [facility]pleted [facility] TDAP Unknown [facility]pleted [facility] HPV9 Unknown [facility]pleted [facility] Influenza Virus Vaccine Quad IM 3+ YRS Unknown [facility]pleted [facility] TDAP Unknown [facility]pleted [facility] TDAP Unknown [facility]pleted [facility] HPV9 Unknown Completed [facility] Influenza Virus Vaccine Quad IM 3+ YRS Unknown Completed [facility] TDAP Unknown Completed [facility] TDAP Unknown Completed [facility] HPV9 Unknown Completed [facility] Influenza Virus Vaccine Quad IM 3+ YRS Unknown Completed [facility] TDAP Unknown Completed [facility] TDAP Unknown Completed [facility] HPV9 Unknown Completed [facility] Influenza Virus Vaccine Quad IM 3+ YRS Unknown Completed [facility] TDAP Unknown Completed [facility] TDAP Unknown Completed [facility] HPV9 Unknown Completed [facility] Influenza Virus Vaccine Quad IM 3+ YRS Unknown Completed [facility] TDAP Unknown Completed [facility] TDAP Unknown Completed [facility] HPV9 Unknown Completed [facility] Influenza Virus Vaccine Quad IM 3+ YRS Unknown Completed [facility] TDAP Unknown Completed [facility] TDAP Unknown Completed [facility] HPV9 Unknown Completed [facility] Influenza Virus Vaccine Quad IM 3+ YRS Unknown Completed [facility] TDAP Unknown Completed [facility] TDAP Unknown Completed [facility] HPV9 Unknown Completed [facility] Influenza Virus Vaccine Quad IM 3+ YRS Unknown Completed [facility] TDAP Unknown Completed [facility] TDAP Unknown Completed [facility] HPV9 Unknown Completed [facility] Influenza Virus Vaccine Quad IM 3+ YRS Unknown Completed [facility] TDAP Unknown Completed [facility] TDAP Unknown Completed [facility] HPV9 Unknown Completed [facility] Influenza Virus Vaccine Quad IM 3+ YRS Unknown Completed [facility] TDAP Unknown Completed [facility] TDAP Unknown Completed [facility] HPV9 Unknown Completed [facility] Influenza Virus Vaccine Quad IM 3+ YRS Unknown Completed [facility] TDAP Unknown Completed [facility] TDAP Unknown Completed [facility] HPV9 Unknown Completed [facility] Influenza Virus Vaccine Quad IM 3+ YRS Unknown Completed [facility] TDAP Unknown Completed [facility] TDAP Unknown Completed [facility] HPV9 Unknown Completed [facility] Influenza Virus Vaccine Quad IM 3+ YRS Unknown Completed [facility] TDAP Unknown Completed [facility] TDAP Unknown Completed [facility] HPV9 Unknown Completed [facility] Influenza Virus Vaccine Quad IM 3+ YRS Unknown Completed [facility] TDAP Unknown Completed [facility] TDAP Unknown Completed [facility] HPV9 Unknown Completed [facility] Influenza Virus Vaccine Quad IM 3+ YRS Unknown Completed [facility] TDAP Unknown Completed [facility] TDAP Unknown Completed [facility] HPV9 Unknown Completed [facility] Influenza Virus Vaccine Quad IM 3+ YRS Unknown Completed [facility] TDAP Unknown Completed [facility] TDAP Unknown Completed [facility] HPV9 Unknown Completed [facility] Influenza Virus Vaccine Quad IM 3+ YRS Unknown Completed [facility] TDAP Unknown Completed [facility] TDAP Unknown Completed [facility] HPV9 Unknown Completed [facility] Influenza Virus Vaccine Quad IM 3+ YRS Unknown Completed [facility] TDAP Unknown Completed [facility] TDAP Unknown Completed [facility] HPV9 Unknown Completed [facility] Influenza Virus Vaccine Quad IM 3+ YRS Unknown Completed [facility] TDAP Unknown Completed [facility] TDAP Unknown Completed [facility] HPV9 Unknown Completed [facility] Influenza Virus Vaccine Quad IM 3+ YRS Unknown Completed [facility] TDAP Unknown Completed [facility] TDAP Unknown Completed [facility] HPV9 Unknown Completed [facility] Influenza Virus Vaccine Quad IM 3+ YRS Unknown Completed [facility] TDAP Unknown Completed [facility] TDAP Unknown Completed [facility] HPV9 Unknown Completed [facility] Vital Signs Vital Name Observation Time Observation Value Comments S ource Systolic blood pressure 2024-03-01 15:01:00 115 mm[Hg] [facility] Diastolic blood pressure 2024-03-01 15:01:00 79 mm[Hg] [facility] Heart rate 2024-03-01 15:01:00 84 /min [facility] Body temperature 2024-03-01 15:01:00 36.11 Sandhya [facility] Body height 2024-03-01 15:01:00 170.2 cm [facility] Body weight 2024-03-01 15:01:[address] [facility] BMI 2024-03-01 15:01:00 34.61 kg/m2 [facility] Oxygen saturation in Arterial blood by Pulse oximetry 2024-03-01 15:01:00 100 /min [facility] Systolic blood pressure 2024-02-17 21:26:00 106 mm[Hg] [facility] Diastolic blood pressure 2024-02-17 21:26:00 73 mm[Hg] [facility] Heart rate 2024-02-17 21:26:00 86 /min [facility] Body temperature 2024-02-17 21:26:00 36.28 Sandhya [facility] Respiratory rate 2024-02-17 21:26:00 18 /min [facility] Body height 2024-02-17 21:26:00 167.6 cm [facility] Body weight 2024-02-17 21:26:00 97.693 kg [facility] BMI 2024-02-17 21:26:00 34.76 kg/m2 [facility] Oxygen saturation in Arterial blood by Pulse oximetry 2024-02-17 21:26:00 99 /min [facility] Systolic blood pressure 2024-01-20 13:35:00 101 mm[Hg] [facility] Diastolic blood pressure 2024-01-20 13:35:00 69 mm[Hg] [facility] Heart rate 2024-01-20 13:35:00 65 /min [facility] Body temperature 2024-01-20 13:35:00 36.94 Sandhya [facility] Body height 2024-01-20 13:35:00 170.2 cm [facility] Body weight 2024-01-20 13:35:[address] [facility] BMI 2024-01-20 13:35:00 33.99 kg/m2 [facility] Oxygen saturation in Arterial blood by Pulse oximetry 2024-01-20 13:35:00 99 /min [facility] Systolic blood pressure 2024-01-18 20:48:00 125 mm[Hg] [facility] Diastolic blood pressure 2024-01-18 20:48:00 86 mm[Hg] [facility] Heart rate 2024-01-18 20:48:00 75 /min [facility] Body height 2024-01-18 20:48:00 170.2 cm [facility] Body weight 2024-01-18 20:48:00 97.659 kg [facility] BMI 2024-01-18 20:48:00 33.72 kg/m2 [facility] Oxygen saturation in Arterial blood by Pulse oximetry 2024-01-18 20:48:00 97 /min [facility] Systolic blood pressure 2023-11-16 17:12:00 112 mm[Hg] [facility] Diastolic blood pressure 2023-11-16 17:12:00 76 mm[Hg] [facility] Heart rate 2023-11-16 17:12:00 64 /min [facility] Body height 2023-11-16 17:12:[address] [facility] Body weight 2023-11-16 17:12:[address] [facility] BMI 2023-11-16 17:12:00 34.55 kg/m2 [facility] Oxygen saturation in Arterial blood by Pulse oximetry 2023-11-16 17:12:00 99 /min [facility] Systolic blood pressure 2023-11-16 14:31:00 130 mm[Hg] [facility] Diastolic blood pressure 2023-11-16 14:31:00 86 mm[Hg] [facility] Heart rate 2023-11-16 14:31:00 72 /min [facility] Body temperature 2023-11-16 14:31:00 36.5 Sandhya [facility] Respiratory rate 2023-11-16 14:31:00 18 /min [facility] Body height 2023-11-16 14:31:00 170.2 cm [facility] Body weight 2023-11-16 14:31:[address] [facility] BMI 2023-11-16 14:31:00 34.61 kg/m2 [facility] Oxygen saturation in Arterial blood by Pulse oximetry 2023-11-16 14:31:00 100 /min [facility] Systolic blood pressure 2023-10-27 05:54:00 115 mm[Hg] [facility] Diastolic blood pressure 2023-10-27 05:54:00 78 mm[Hg] [facility] Heart rate 2023-10-27 05:54:00 70 /min [facility] Respiratory rate 2023-10-27 05:54:00 16 /min [facility] Oxygen saturation in Arterial blood by Pulse oximetry 2023-10-27 05:54:00 99 /min [facility] Body temperature 2023-10-27 03:55:00 37.11 [facility] Body height 2023-10-27 03:55:[address] [facility] Body weight 2023-10-27 03:55:[address] [facility] BMI 2023-10-27 03:55:00 33.20 kg/m2 [facility] Systolic blood pressure 2023-08-25 19:55:00 105 mm[Hg] [facility] Diastolic blood pressure 2023-08-25 19:55:00 68 mm[Hg] [facility] Heart rate 2023-08-25 19:55:00 80 /min [facility] Body temperature 2023-08-25 19:55:00 36.33 Sandhya [facility] Body weight 2023-08-25 19:55:[address] [facility] BMI 2023-08-25 19:55:00 34.49 kg/m2 [facility] Systolic blood pressure 2023-08-20 19:47:00 131 mm[Hg] [facility] Diastolic blood pressure 2023-08-20 19:47:00 75 mm[Hg] [facility] Heart rate 2023-08-20 19:47:00 68 /min [facility] Body temperature 2023-08-20 19:47:00 36.56 Sandhya [facility] Respiratory rate 2023-08-20 19:47:00 17 /min [facility] Body height 2023-08-20 19:47:00 170.2 cm [facility] Body weight 2023-08-20 19:47:[address] [facility] BMI 2023-08-20 19:47:00 33.27 kg/m2 [facility] Systolic blood pressure 2023-08-16 15:00:00 110 mm[Hg] [facility] Diastolic blood pressure 2023-08-16 15:00:00 80 mm[Hg] [facility] Heart rate 2023-08-16 15:00:00 65 /min [facility] Body height 2023-08-16 15:00:[address] [facility] Body weight 2023-08-16 15:00:[address] [facility] BMI 2023-08-16 15:00:00 33.77 kg/m2 [facility] Oxygen saturation in Arterial blood by Pulse oximetry 2023-08-16 15:00:00 100 /min [facility] Systolic blood pressure 2023-08-13 23:09:23 121 mm[Hg] [facility] Diastolic blood pressure 2023-08-13 23:09:23 76 mm[Hg] [facility] Heart rate 2023-08-13 23:09:23 74 /min [facility] Respiratory rate 2023-08-13 23:09:23 18 /min [facility] Oxygen saturation in Arterial blood by Pulse oximetry 2023-08-13 23:09:23 98 /min [facility] Body temperature 2023-08-13 20:34:00 36.89 Sandhya [facility] Body height 2023-08-13 20:34:00 170.2 cm [facility] Body weight 2023-08-13 20:34:00 96.616 kg [facility] BMI 2023-08-13 20:34:00 33.36 kg/m2 [facility] Systolic blood pressure 2023-07-29 20:07:00 95 mm[Hg] [facility] Diastolic blood pressure 2023-07-29 20:07:00 67 mm[Hg] [facility] Heart rate 2023-07-29 20:07:00 105 /min [facility] Body temperature 2023-07-29 20:07:00 36.28 Sandhya [facility] Body height 2023-07-29 20:07:[address] [facility] Body weight 2023-07-29 20:07:[address] [facility] BMI 2023-07-29 20:07:00 33.31 kg/m2 [facility] Systolic blood pressure 2023-07-14 21:36:00 95 mm[Hg] [facility] Diastolic blood pressure 2023-07-14 21:36:00 71 mm[Hg] [facility] Heart rate 2023-07-14 21:36:00 76 /min [facility] Body temperature 2023-07-14 21:36:00 36.33 Sandhya [facility] Respiratory rate 2023-07-14 21:36:00 20 /min [facility] Body height 2023-07-14 21:36:[address] [facility] Body weight 2023-07-14 21:36:[address] [facility] BMI 2023-07-14 21:36:00 33.20 kg/m2 [facility] Oxygen saturation in Arterial blood by Pulse oximetry 2023-07-14 21:36:00 98 /min [facility] Systolic blood pressure 2023-07-07 21:03:00 101 mm[Hg] [facility] Diastolic blood pressure 2023-07-07 21:03:00 67 mm[Hg] [facility] Heart rate 2023-07-07 21:03:00 76 /min [facility] Body temperature 2023-07-07 21:03:00 36 Sandhya [facility] Body height 2023-07-07 21:03:[address] [facility] Body weight 2023-07-07 21:03:00 96.752 kg [facility] BMI 2023-07-07 21:03:00 33.41 kg/m2 [facility] Systolic blood pressure 2023-07-01 21:39:00 116 mm[Hg] [facility] Diastolic blood pressure 2023-07-01 21:39:00 73 mm[Hg] [facility] Heart rate 2023-07-01 21:39:00 64 /min [facility] Body temperature 2023-07-01 21:39:00 36.17 Sandhya [facility] Respiratory rate 2023-07-01 21:39:00 18 /min [facility] Body height 2023-07-01 21:39:00 170.2 cm [facility] Body weight 2023-07-01 21:39:[address] [facility] BMI 2023-07-01 21:39:00 32.94 kg/m2 [facility] Systolic blood pressure 2023-06-23 19:21:00 101 mm[Hg] [facility] Diastolic blood pressure 2023-06-23 19:21:00 70 mm[Hg] [facility] Heart rate 2023-06-23 19:21:00 73 /min [facility] Body temperature 2023-06-23 19:21:00 36.17 Sandhya [facility] Body height 2023-06-23 19:21:00 170.2 cm [facility] Body weight 2023-06-23 19:21:00 95.255 kg [facility] BMI 2023-06-23 19:21:00 32.89 kg/m2 [facility] Systolic blood pressure 2023-06-22 14:24:00 120 mm[Hg] [facility] Diastolic blood pressure 2023-06-22 14:24:00 83 mm[Hg] [facility] Heart rate 2023-06-22 14:24:00 67 /min [facility] Respiratory rate 2023-06-22 14:24:00 12 /min [facility] Body height 2023-06-22 14:24:00 [facility].2 [facility] 2023-06-22 14:24:00 96.344 kg [facility] BMI 2023-06-22 14:24:00 33.27 kg/m2 [facility] Oxygen saturation in Arterial blood by Pulse oximetry 2023-06-22 14:24:00 100 /min [facility] Heart rate 2023-06-22 01:45:00 84 /min [facility] O[facility] in Arterial blood by Pulse oximetry 2023-06-22 01:45:00 98 /min [facility] Systolic blood pressure 2023-06-22 01:00:00 119 mm[Hg] [facility] Diastolic blood pressure 2023-06-22 01:00:00 85 mm[Hg] [facility] Respiratory rate 2023-06-22 01:00:00 16 /min [facility] Body height 2023-06-22 00:11:00 170.2 cm [facility] Body weight 2023-06-22 00:11:[address] [facility] BMI 2023-06-22 00:11:00 32.89 kg/m2 [facility] Systolic blood pressure 2023-06-17 02:18:00 120 mm[Hg] [facility] Diastolic blood pressure 2023-06-17 02:18:00 82 mm[Hg] [facility] Heart rate 2023-06-17 02:18:00 90 /min [facility] Body temperature 2023-06-17 02:18:00 37 Sandhya [facility] Respiratory rate 2023-06-17 02:18:00 16 /min [facility] Body height 2023-06-17 02:18:00 170.2 cm [facility] Body weight 2023-06-17 02:18:00 94.938 kg [facility] BMI 2023-06-17 02:18:00 32.78 kg/m2 [facility] Oxygen saturation in Arterial blood by Pulse oximetry 2023-06-17 02:18:00 98 /min [facility] Systolic blood pressure 2023-05-26 20:20:00 121 mm[Hg] [facility] Diastolic blood pressure 2023-05-26 20:20:00 85 mm[Hg] [facility] Heart rate 2023-05-26 20:20:00 71 /min [facility] Body temperature 2023-05-26 20:20:00 36.89 Sandhya [facility] Respiratory rate 2023-05-26 20:20:00 18 /min [facility] Body height 2023-05-26 20:20:[address] [facility] Body weight 2023-05-26 20:20:[address] [facility] BMI 2023-05-26 20:20:00 33.24 kg/m2 [facility] Oxygen saturation in Arterial blood by Pulse oximetry 2023-05-26 20:20:00 100 /min [facility] Systolic blood pressure 2023-05-10 21:05:00 123 mm[Hg] [facility] Diastolic blood pressure 2023-05-10 21:05:00 80 mm[Hg] [facility] Heart rate 2023-05-10 21:05:00 72 /min [facility] Body temperature 2023-05-10 21:05:00 36.56 Sandhya [facility] Body height 2023-05-10 21:05:[address] [facility] Body weight 2023-05-10 21:05:[address] [facility] BMI 2023-05-10 21:05:00 32.94 kg/m2 [facility] Systolic blood pressure 2023-05-06 17:28:00 126 mm[Hg] [facility] Diastolic blood pressure 2023-05-06 17:28:00 84 mm[Hg] [facility] Heart rate 2023-05-06 17:28:00 70 /min [facility] Respiratory rate 2023-05-06 17:28:00 20 /min [facility] Body height 2023-05-06 17:28:00 170.2 cm [facility] Body weight 2023-05-06 17:28:00 95.165 kg [facility] BMI 2023-05-06 17:28:00 32.86 kg/m2 [facility] Oxygen saturation in Arterial blood by Pulse oximetry 2023-05-06 17:28:00 97 /min [facility] Systolic blood pressure 2023-05-01 17:29:00 111 mm[Hg] [facility] Diastolic blood pressure 2023-05-01 17:29:00 66 mm[Hg] [facility] Heart rate 2023-05-01 17:29:00 69 /min [facility] Body temperature 2023-05-01 17:29:00 36.67 Sandhya [facility] Respiratory rate 2023-05-01 17:29:00 18 /min [facility] Oxygen saturation in Arterial blood by Pulse oximetry 2023-05-01 17:29:00 99 /min [facility] Body height 2023-04-26 11:43:00 170.2 cm [facility] Body weight 2023-04-26 11:43:00 93.6 kg [facility] BMI 2023-04-26 11:43:00 32.32 kg/m2 [facility] Systolic blood pressure 2023-04-23 21:50:00 112 mm[Hg] [facility] Diastolic blood pressure 2023-04-23 21:50:00 76 mm[Hg] [facility] Heart rate 2023-04-23 21:50:00 71 /min [facility] Respiratory rate 2023-04-23 21:50:00 16 /min [facility] Body height 2023-04-23 21:50:00 170.2 cm [facility] Body weight 2023-04-23 21:50:00 91.627 kg [facility] BMI 2023-04-23 21:50:00 31.64 kg/m2 [facility] Oxygen saturation in Arterial blood by Pulse oximetry 2023-04-23 21:50:00 99 /min [facility] Systolic blood pressure 2023-04-09 13:51:00 116 mm[Hg] [facility] Diastolic blood pressure 2023-04-09 13:51:00 79 mm[Hg] [facility] Heart rate 2023-04-09 13:51:00 81 /min [facility] Body temperature 2023-04-09 13:51:00 36.5 Sandhya [facility] Respiratory rate 2023-04-09 13:51:00 18 /min [facility] Body height 2023-04-09 13:51:00 170.2 cm [facility] Body weight 2023-04-09 13:51:00 91.082 kg Univ [facility] BMI 2023-04-09 13:51:00 31.45 kg/m2 [facility] Oxygen saturation in Arterial blood by Pulse oximetry 2023-04-09 13:51:00 97 /min [facility] Systolic blood pressure 2023-04-09 13:51:00 116 mm[Hg] [facility] Diastolic blood pressure 2023-04-09 13:51:00 79 mm[Hg] [facility] Heart rate 2023-04-09 13:51:00 81 /min [facility] Body temperature 2023-04-09 13:51:00 36.5 Sandhya [facility] Respiratory rate 2023-04-09 13:51:00 18 /min [facility] Body height 2023-04-09 13:51:00 170.2 cm [facility] Body weight 2023-04-09 13:51:00 91.082 kg [facility] BMI 2023-04-09 13:51:00 31.45 kg/m2 [facility] Oxygen saturation in Arterial blood by Pulse oximetry 2023-04-09 13:51:00 97 /min [facility] Systolic blood pressure 2023-04-07 18:48:00 111 mm[Hg] [facility] Diastolic blood pressure 2023-04-07 18:48:00 74 mm[Hg] [facility] Heart rate 2023-04-07 18:48:00 87 /min [facility] Body temperature 2023-04-07 18:48:00 36.67 Sandhya [facility] Respiratory rate 2023-04-07 18:48:00 18 /min [facility] Body height 2023-04-07 18:48:00 170.2 cm Univ [facility] Body weight 2023-04-07 18:48:00 89.812 kg Univ [facility] BMI 2023-04-07 18:48:00 31.01 kg/m2 [facility] Oxygen saturation in Arterial blood by Pulse oximetry 2023-04-07 18:48:00 100 /min [facility] Systolic blood pressure 2023-04-05 18:56:00 124 mm[Hg] [facility] Diastolic blood pressure 2023-04-05 18:56:00 79 mm[Hg] [facility] Heart rate 2023-04-05 18:56:00 81 /min [facility] Body temperature 2023-04-05 18:56:00 35.83 Sandhya [facility] Respiratory rate 2023-04-05 18:56:00 20 /min [facility] Body height 2023-04-05 18:56:00 170.2 cm Univ [facility] Body weight 2023-04-05 18:56:[address] [facility] BMI 2023-04-05 18:56:00 31.37 kg/m2 [facility] Systolic blood pressure 2023-01-26 04:00:00 119 mm[Hg] [facility] Diastolic blood pressure 2023-01-26 04:00:00 74 mm[Hg] [facility] Heart rate 2023-01-26 04:00:00 75 /min [facility] Respiratory rate 2023-01-26 04:00:00 12 /min [facility] Oxygen saturation in Arterial blood by Pulse oximetry 2023-01-26 04:00:00 99 /min [facility] Body temperature 2023-01-26 01:59:00 37.28 Sandhya [facility] Body height 2023-01-26 01:59:00 170.2 cm [facility] Body weight 2023-01-26 01:59:00 90.719 kg [facility] BMI 2023-01-26 01:59:00 31.32 kg/m2 [facility] Systolic blood pressure 2023-01-18 19:36:00 122 mm[Hg] [facility] Diastolic blood pressure 2023-01-18 19:36:00 83 mm[Hg] [facility] Heart rate 2023-01-18 19:36:00 75 /min [facility] Body temperature 2023-01-18 19:36:00 36.83 Sandhya [facility] Respiratory rate 2023-01-18 19:36:00 16 /min [facility] Body height 2023-01-18 19:36:00 170.2 cm [facility] Body weight 2023-01-18 19:36:00 91.581 kg [facility] BMI 2023-01-18 19:36:00 31.62 kg/m2 [facility] Oxygen saturation in Arterial blood by Pulse oximetry 2023-01-18 19:36:00 99 /min [facility] Systolic blood pressure 2023-01-18 15:43:00 113 mm[Hg] [facility] Diastolic blood pressure 2023-01-18 15:43:00 73 mm[Hg] [facility] Heart rate 2023-01-18 15:43:00 75 /min [facility] Body temperature 2023-01-18 15:43:00 35.67 Sandhya [facility] Respiratory rate 2023-01-18 15:43:00 17 /min [facility] Body height 2023-01-18 15:43:00 170.2 cm [facility] Body weight 2023-01-18 15:43:00 90.538 kg [facility] BMI 2023-01-18 15:43:00 31.26 kg/m2 [facility] 2023-01-09 18:15:00 86 mm[Hg] [facility] Diastolic blood pressure 2023-01-09 18:15:00 50 mm[Hg] [facility] Heart rate 2023-01-09 18:15:00 77 /min [facility] Body temperature 2023-01-09 18:15:00 36.83 Sandhya [facility] Respiratory rate 2023-01-09 18:15:00 18 /min [facility] Oxygen saturation in Arterial blood by Pulse oximetry 2023-01-09 18:15:00 99 /min [facility] Body height 2023-01-09 05:47:[address] [facility] Body weight 2023-01-09 05:47:[address] [facility] BMI 2023-01-09 05:47:00 31.32 kg/m2 [facility] Systolic blood pressure 2023-01-08 22:52:00 112 mm[Hg] [facility] Diastolic blood pressure 2023-01-08 22:52:00 65 mm[Hg] [facility] Heart rate 2023-01-08 22:52:00 107 /min [facility] Body temperature 2023-01-08 22:52:00 36.72 Sandhya [facility] Respiratory rate 2023-01-08 22:52:00 18 /min [facility] Oxygen saturation in Arterial blood by Pulse oximetry 2023-01-08 22:52:00 100 /min [facility] Body height 2023-01-08 15:28:00 170.2 cm [facility] Body weight 2023-01-08 15:28:[address] [facility] BMI 2023-01-08 15:28:00 31.32 kg/m2 [facility] Systolic blood pressure 2023-01-04 14:17:00 110 mm[Hg] [facility] Diastolic blood pressure 2023-01-04 14:17:00 71 mm[Hg] [facility] Heart rate 2023-01-04 14:17:00 73 /min [facility] Body temperature 2023-01-04 14:17:00 36.39 Sandhya [facility] Respiratory rate 2023-01-04 14:17:00 20 /min [facility] Body height 2023-01-04 14:17:[address] [facility] Body weight 2023-01-04 14:17:[address] [facility] BMI 2023-01-04 14:17:00 31.36 kg/m2 [facility] Systolic blood pressure 2023-01-02 05:49:00 112 mm[Hg] [facility] Diastolic blood pressure 2023-01-02 05:49:00 72 mm[Hg] [facility] Heart rate 2023-01-02 05:49:00 77 /min [facility] Respiratory rate 2023-01-02 05:49:00 16 /min [facility] Oxygen saturation in Arterial blood by Pulse oximetry 2023-01-02 05:49:00 100 /min [facility] Body temperature 2023-01-02 05:34:00 36.61 Sandhya [facility] Body height 2023-01-02 03:54:[address] [facility] Body weight 2023-01-02 03:54:[address] [facility] BMI 2023-01-02 03:54:00 33.99 kg/m2 [facility] Systolic blood pressure 2022-12-21 15:58:00 110 mm[Hg] [facility] Diastolic blood pressure 2022-12-21 15:58:00 68 mm[Hg] [facility] Heart rate 2022-12-21 15:58:00 75 /min [facility] Body temperature 2022-12-21 15:58:00 36.39 Sandhya [facility] Respiratory rate 2022-12-21 15:58:00 18 /min [facility] Body height 2022-12-21 15:58:[address] [facility] Body weight 2022-12-21 15:58:00 89.54 kg [facility] BMI 2022-12-21 15:58:00 30.92 kg/m2 [facility] Oxygen saturation in Arterial blood by Pulse oximetry 2022-12-21 15:58:00 100 /min [facility] Systolic blood pressure 2022-12-11 15:46:00 107 mm[Hg] [facility] Diastolic blood pressure 2022-12-11 15:46:00 64 mm[Hg] [facility] Heart rate 2022-12-11 15:46:00 74 /min [facility] Body temperature 2022-12-11 15:46:00 35.89 Sandhya [facility] Respiratory rate 2022-12-11 15:46:00 18 /min [facility] Body height 2022-12-11 15:46:00 170.2 cm [facility] Body weight 2022-12-11 15:46:[address] [facility] BMI 2022-12-11 15:46:00 30.46 kg/m2 [facility] Systolic blood pressure 2022-12-09 16:23:00 119 mm[Hg] [facility] Diastolic blood pressure 2022-12-09 16:23:00 70 mm[Hg] [facility] Heart rate 2022-12-09 16:23:00 65 /min [facility] Body temperature 2022-12-09 16:23:00 36.83 Sandhya [facility] Respiratory rate 2022-12-09 16:23:00 18 /min [facility] Body height 2022-12-09 16:23:00 170.2 cm [facility] Body weight 2022-12-09 16:23:[address] [facility] BMI 2022-12-09 16:23:00 31.07 kg/m2 [facility] Systolic blood pressure 2022-11-12 20:14:00 128 mm[Hg] [facility] Diastolic blood pressure 2022-11-12 20:14:00 75 mm[Hg] [facility] Heart rate 2022-11-12 20:14:00 67 /min [facility] Body temperature 2022-11-12 20:14:00 36.67 Sandhya [facility] Respiratory rate 2022-11-12 20:14:00 20 /min [facility] Body height 2022-11-12 20:14:[address] [facility] Body weight 2022-11-12 20:14:[address] [facility] BMI 2022-11-12 20:14:00 30.72 kg/m2 [facility] Systolic blood pressure 2022-10-22 20:14:00 112 mm[Hg] [facility] Diastolic blood pressure 2022-10-22 20:14:00 74 mm[Hg] [facility] Heart rate 2022-10-22 20:14:00 72 /min [facility] Body temperature 2022-10-22 20:14:00 36.67 Sandhya [facility] Respiratory rate 2022-10-22 20:14:00 18 /min [facility] Body weight 2022-10-22 20:14:[address] [facility] BMI 2022-10-22 20:14:00 30.54 kg/m2 [facility] Systolic blood pressure 2022-09-28 13:01:00 104 mm[Hg] [facility] Diastolic blood pressure 2022-09-28 13:01:00 63 mm[Hg] [facility] Heart rate 2022-09-28 13:01:00 75 /min [facility] Body temperature 2022-09-28 13:01:00 36.72 Sandhya [facility] Respiratory rate 2022-09-28 13:01:00 18 /min [facility] Oxygen saturation in Arterial blood by Pulse oximetry 2022-09-28 13:01:00 100 /min [facility] Body weight 2022-09-26 22:36:[address] [facility] BMI 2022-09-26 22:36:00 30.54 kg/m2 [facility] Respiratory rate 2022-09-28 02:10:00 10 /min [facility] Oxygen saturation in Arterial blood by Pulse oximetry 2022-09-28 02:10:00 100 /min [facility] Systolic blood pressure 2022-09-28 02:08:00 116 mm[Hg] [facility] Diastolic blood pressure 2022-09-28 02:08:00 76 mm[Hg] [facility] Body temperature 2022-09-28 01:42:00 36.67 Sandhya [facility] Heart rate 2022-09-28 00:40:00 72 /min [facility] Body weight 2022-09-26 22:36:[address] [facility] BMI 2022-09-26 22:36:00 30.54 kg/m2 [facility] Systolic blood pressure 2022-09-24 05:00:00 118 mm[Hg] [facility] Diastolic blood pressure 2022-09-24 05:00:00 87 mm[Hg] [facility] Heart rate 2022-09-24 05:00:00 78 /min [facility] Respiratory rate 2022-09-24 05:00:00 20 /min [facility] Oxygen saturation in Arterial blood by Pulse oximetry 2022-09-24 05:00:00 100 /min [facility] Body temperature 2022-09-24 03:13:00 37.78 Sandhya [facility] Body height 2022-09-24 03:13:[address] [facility] Body weight 2022-09-24 03:13:[address] [facility] BMI 2022-09-24 03:13:00 30.68 kg/m2 [facility] Systolic blood pressure 2022-09-23 21:15:00 114 mm[Hg] [facility] Diastolic blood pressure 2022-09-23 21:15:00 74 mm[Hg] [facility] Heart rate 2022-09-23 21:15:00 76 /min [facility] Body temperature 2022-09-23 21:15:00 36.56 Sandhya [facility] Respiratory rate 2022-09-23 21:15:00 18 /min [facility] Body height 2022-09-23 21:15:[address] [facility] Body weight 2022-09-23 21:15:[address] [facility] BMI 2022-09-23 21:15:00 30.90 kg/m2 [facility] Systolic blood pressure 2022-08-11 21:40:00 125 mm[Hg] [facility] Diastolic blood pressure 2022-08-11 21:40:00 76 mm[Hg] [facility] Heart rate 2022-08-11 21:40:00 71 /min [facility] Body temperature 2022-08-11 21:40:00 36.44 Sandhya [facility] Respiratory rate 2022-08-11 21:40:00 17 /min [facility] Body height 2022-08-11 21:40:[address] [facility] Body weight 2022-08-11 21:40:[address] [facility] BMI 2022-08-11 21:40:00 29.99 kg/m2 [facility] Respiratory rate 2022-04-27 08:02:00 18 /min [facility] Body height 2022-04-27 08:02:[address] [facility] Body weight 2022-04-27 08:02:[address] [facility] BMI 2022-04-27 08:02:00 31.48 kg/m2 [facility] Oxygen saturation in Arterial blood by Pulse oximetry 2022-04-27 08:02:00 99 /min [facility] Systolic blood pressure 2022-04-27 08:02:00 121 mm[Hg] [facility] Diastolic blood pressure 2022-04-27 08:02:00 82 mm[Hg] [facility] Heart rate 2022-04-27 08:02:00 85 /min [facility] Body temperature 2022-04-27 08:02:00 37.06 Sandhya [facility] Systolic blood pressure 2022-04-18 16:19:00 103 mm[Hg] [facility] Diastolic blood pressure 2022-04-18 16:19:00 69 mm[Hg] [facility] Heart rate 2022-04-18 16:19:00 84 /min [facility] Body temperature 2022-04-18 16:19:00 36.5 Sandhya [facility] Respiratory rate 2022-04-18 16:19:00 20 /min [facility] Body height 2022-04-18 16:19:[address] [facility] Body weight 2022-04-18 16:19:[address] [facility] BMI 2022-04-18 16:19:00 31.59 kg/m2 [facility] Systolic blood pressure 2022-04-02 18:22:00 122 mm[Hg] [facility] Diastolic blood pressure 2022-04-02 18:22:00 73 mm[Hg] [facility] Heart rate 2022-04-02 18:22:00 74 [facility] 2022-04-02 18:22:00 36 Sandhya [facility] Respiratory rate 2022-04-02 18:22:00 18 /min [facility] Body height 2022-04-02 18:22:[address] [facility] Body weight 2022-04-02 18:22:[address] [facility] BMI 2022-04-02 18:22:00 31.97 kg/m2 [facility] Procedures Procedure Date / Time Performed Performing Clinician Source POCT MOLECULAR STREP 2024-02-17 21:45:00 Unknown, Attending [facility] POCT SARS-COV-2 ANTIGEN (BINAX NOW) 2024-02-17 21:27:00 Clary Richmond [facility] POCT TEST 2024-01-20 00:00:00 Thais Marin [facility] REFERRAL- REQUEST/RESPONSE 2023-11-12 18:24:24 Doctor Unassigned, [place] [facility] POCT TEST 2023-08-20 19:56:00 Pete Owens [facility] ASSIGNMENT OF BENEFITS 2023-08-13 22:13:19 Doctor Unassigned, [place] [facility] COMP. METABOLIC PANEL (76064) 2023-08-13 21:08:00 Bogdan Gabriel [facility] TOTAL BETA HCG ASSAY 2023-08-13 21:08:00 [facility] CBC WITH DIFF 2023-08-13 21:08:00 [facility] URINALYSIS 2023-08-13 21:08:00 [facility] HB ABO GROUPING 2023-08-13 21:08:00 [facility] CONSENT/REFUSAL FOR DIAGNOSI S AND TREATMENT 2023-08-13 20:17:50 Doctor Unassigned, [place] [facility] C-REACTIVE PROTEIN 2023-07-29 20:37:00 Mariama Carrera [facility] COMP. METABOLIC PANEL (62483) 2023-07-29 20:37:00 Mariama Carrera [facility] SEDIMENTATION RATE 2023-07-29 20:37:00 Mariama Carrera [facility] CBC WITH DIFF 2023-07-29 20:37:00 Mariama Carrera [facility] URINALYSIS 2023-07-29 20:37:00 Mariama Carrera [facility] EXTERNAL PROVIDER RECORDS 2023-07-23 06:01:00 Doctor Unassigned, [place] [facility] URINE CULTURE 2023-07-01 21:55:00 Tawana Jean [facility] GALV ONLY - VAGINAL PATHOGEN S BY NUCLEIC ACID TESTING 2023-07-01 21:55:00 Tawana Jean [facility] POCT URINALYSIS 2023-07-01 21:39:00 Pete Owens [facility] CONSENT/REFUSAL FOR DIAGNOSI S AND TREATMENT 2023-06-22 00:07:05 Doctor Unassigned, [place] [facility] SLEEP STUDY DATA REPORT 2023-06-03 06:01:00 Doctor Unassigned, [place] [facility] US PELVIS COMPLETE WITH TRANSVAGINAL 2023-05-18 20:38:21 Abby Jordan [facility] MAGNESIUM 2023-05-01 10:09:00 Kathy Esquivel [facility] BASIC METABOLIC PANEL (NA, K , CL, CO2, GLUCOSE, BUN, CREATININE, CA) 2023-05-01 10:09:00 Kathy Esquivel [facility] CBC WITHOUT DIFF 2023-05-01 10:09:00 Kathy Esquivel [facility] MAGNESIUM 2023-04-30 11:12:00 Kathy Esquivel [facility] HEPATIC FUNCTION PANEL (05508) (ALB,T.PRO,BILI T,BU/BC,ALT,AST,ALK PHOS) 2023-04-30 11:12:00 Kathy Esquivel [facility] BASIC METABOLIC PANEL (NA, K , CL, CO2, GLUCOSE, BUN, CREATININE, CA) 2023-04-30 11:12:00 Kathy Esquivel [facility] CBC WITHOUT DIFF 2023-04-30 11:12:00 Kathy Esquivel [facility] PROTHROMBIN TIME / INR 2023-04-30 11:12:00 Chavezcolby Esquivel [facility] MR VENOGRAM HEAD W WO CONTRAST 2023-04-30 03:22[facility] 2023-04-30 03:21:29 Ivonne Lozano [facility] RESPIRATORY PANEL BY PCR 2023-04-28 00:16:00 Tanja Hanson [facility] COVID-19 (ID NOW RAPID TESTING) 2023-04-27 22:03:00 Devonte Veronica [facility] LAB ONLY COVID INTERPRETATION 2023-04-27 22:03:00 Tanja Hanson [facility] BASIC METABOLIC PANEL (NA, K , CL, CO2, GLUCOSE, BUN, CREATININE, CA) 2023-04-27 15:27:00 Ivonne Lozano [facility] CBC WITH DIFF 2023-04-27 15:27:00 Ivonne Lozano [facility] ELECTROENCEPHALOGRAM 2023-04-27 00:00:00 Ivonne Lozano [facility] CREATINE KINASE 2023-04-26 22:35:00 Tanja Hanson [facility] CT HEAD WO CONTRAST 2023-04-26 22:24:07 Tanja Hanson [facility] SURGICAL PATHOLOGY EXAM 2023-04-26 14:16:00 Bandar Baca [facility] HYSTEROSCOPY WITH DILATATION AND CURETTAGE 2023-04-26 13:06:00 Bandar Baca [facility] CBC WITH DIFF 2023-04-26 11:59:00 Tono Taylor [facility] HB ABO GROUPING 2023-04-26 11:59:00 Claudio Goldsmith [facility] POCT TEST 2023-04-26 11:40:00 Loreto Oconnell [facility] CONSENT/REFUSAL FOR DIAGNOSI S AND TREATMENT 2023-04-26 11:37:09 Doctor Unassigned, [place] [facility] ASSIGNMENT OF BENEFITS 2023-04-26 11:34:48 Doctor Unassigned, [place] [facility] URINALYSIS 2023-04-09 16:16:00 UmañaMichel [facility] CREATINE KINASE 2023-04-09 15:50:00 UmañaYohannes [facility] C-REACTIVE PROTEIN 2023-04-09 15:50:00 UmañaYohannes [facility] C4 COMPLEMENT 2023-04-09 15:50:00 UmañaYohannes Jose [facility] IRON PANEL 2023-04-09 15:50:00 UmañaYohannes [facility] G6PD SCREENING TEST 2023-04-09 15:50:00 UmañaJarrett Sheffieldrique [facility] VITAMIN D, 25-OH 2023-04-09 15:50:00 [facility] 2023-04-09 15:50:00 [facility] THIOPURINE METHYLTRANSFERASE , RBC 2023-04-09 15:50:00 [facility] ANTI-SSA(RO) 2023-04-09 15:50:00 [facility] ANTI-DOUBLE STRANDED DNA 2023-04-09 15:50:00 [facility] QFT TB2 MINUS NIL 2023-04-09 15:50:00 [facility] LUPUS ANTICOAGULANT REFLEXIV E PANEL 2023-04-09 15:50:00 [facility] FERRITIN SERUM 2023-04-07 19:38:00 [facility] RHEUMATOID FACTOR 2023-04-07 19:38:00 Thais Marin [facility] [facility] COMP. METABOLIC PANEL ([id number]) 2023-04-07 19:38:00 Thais Marin [facility] SEDIMENTATION RATE 2023-04-07 19:38:00 Thais Marin [facility] CBC WITH DIFF 2023-04-07 19:38:00 Thais Marin [facility] ANTI-NUCLEAR ANTIBODY SCREEN 2023-04-07 19:38:00 Thais Marin [facility] HEPATITIS B SURFACE ANTIGEN 2023-04-07 19:38:00 Thais Marin [facility] HCV ANTIBODY 2023-04-07 19:38:00 Thais Marin [facility] GC & CHLAMYDIA AMPLIFIED ASSAY 2023-04-07 19:38:00 Thais Marin [facility] HSV 1 AND 2 GLYCOPROTEIN G IGG 2023-04-07 19:38:00 Thais Marin [facility] ADC OR ZACHARY ONLY - RPR 2023-04-07 19:38:00 Thais Marin [facility] HIV 1/2 AG-AB WITH REFLEX 2023-04-07 19:38:00 Thais Marin [facility] TRICHOMONAS AMPLIFIED ASSAY 2023-04-07 19:38:00 Thais Marin [facility] FERRITIN SERUM 2023-04-07 19:38:00 Jose Craig [facility] EKG-12 LEAD 2023-01-26 04:19:59 Gaurav John [facility] CT ABDOMEN PELVIS WO CONTRAST 2023-01-26 03:13:00 Gaurav John [facility] LIPASE 2023-01-26 02:21:00 Gaurav John [facility] COMP. METABOLIC PANEL ([id number]) 2023-01-26 02:21:00 Gaurav John [facility] CBC WITH DIFF 2023-01-26 02:21:00 Gaurav John [facility] URINALYSIS 2023-01-26 02:05:00 Gaurav John [facility] POCT TEST 2023-01-26 02:03:00 Gaurav John [facility] NOTICE OF PRIVACY PRACTICES 2023-01-26 01:50:27 Doctor Unassigned, [place] [facility] CONSENT/REFUSAL FOR DIAGNOSI S AND TREATMENT 2023-01-26 01:49:25 Doctor Unassigned, [place] [facility] ASSIGNMENT OF BENEFITS 2023-01-18 21:28:15 Doctor Unassigned, [place] [facility] CONSENT/REFUSAL FOR DIAGNOSI S AND TREATMENT 2023-01-18 19:32:06 Doctor Unassigned, [place] [facility] POCT TEST 2023-01-18 17:54:00 Bandar Baca [facility] CBC WITH DIFF 2023-01-09 08:24:00 Adum, Mariajose Gudino [facility] CBC WITH DIFF 2023-01-09 08:24:00 Adum, Mariajose Gudino [facility] CBC WITHOUT DIFF 2023-01-09 04:08:00 Adum, Mariajose Gudino [facility] CBC WITHOUT DIFF 2023-01-09 04:08:00 Adum, Mariajose Gudino [facility] US PELVIS LIMITED 2023-01-09 01:57:00 Adum, Mariajose Gudino [facility] US PELVIS LIMITED 2023-01-09 01:57:00 Adum, Mariajose Gudino [facility] DILATION AND CURETTAGE 2023-01-09 00:05:00 Adum, Mariajose Gudino [facility] HYSTEROSCOPY 2023-01-09 00:05:00 Adum, Mariajose Gudino [facility] DIAGNOSTIC LAPAROSCOPY 2023-01-09 00:05:00 Adum, Mariajose Gudino [facility] LAPAROSCOPIC LYSIS OF ADHESIONS 2023-01-09 00:05:00 Adum, Mariajose Gudino [facility] LAPAROSCOPIC OVARIAN CYST ASPIRATION 2023-01-09 00:05:00 Adum, Mariajose Gudino [facility] URINALYSIS 2023-01-08 16:47:00 [facility]ilio [facility] URINALYSIS 2023-01-08 16:47:00 Basilio [facility] LIPASE 2023-01-08 16:01:00 Basilio [facility] COMP. METABOLIC PANEL ([id number]) 2023-01-08 16:01:00 Basilio [facility] TOTAL BETA HCG ASSAY 2023-01-08 16:01:00 Adum, Mariajose Shahab [facility] CBC WITH DIFF 2023-01-08 16:01:00 Basilio [facility] HB ABO GROUPING 2023-01-08 16:01:00 Basilio [facility] LIPASE 2023-01-08 16:01:00 Basilio [facility] COMP. METABOLIC PANEL ([id number]) 2023-01-08 16:01:00 Basilio [facility] TOTAL BETA HCG ASSAY 2023-01-08 16:01:00 Adum, Mariajose Shahab [facility] CBC WITH DIFF 2023-01-08 16:01:00 Basilio [facility] HB ABO GROUPING 2023-01-08 16:01:00 Clary Richmond [facility] CONSENT/REFUSAL FOR DIAGNOSI S AND TREATMENT 2023-01-08 15:23:42 Doctor Unassigned, [place] [facility] CONSENT/REFUSAL FOR DIAGNOSI S AND TREATMENT 2023-01-08 15:23:42 Doctor Unassigned, [place] [facility] DAY SURGERY - ADC 2023-01-08 05:01:00 Doctor Unassigned, [place] [facility] COMP. METABOLIC PANEL ([id number]) 2023-01-02 04:08:00 Gaurav John [facility] CBC WITH DIFF 2023-01-02 04:08:00 Gaurav John [facility] URINALYSIS 2023-01-02 04:08:00 Gaurav John [facility] HB ABO GROUPING 2023-01-02 04:08:00 Gaurav John [facility] NOTICE OF PRIVACY PRACTICES 2023-01-02 03:45:21 Doctor Unassigned, [place] [facility] CONSENT/REFUSAL FOR DIAGNOSI S AND TREATMENT 2023-01-02 03:41:52 Doctor Unassigned, [place] [facility] TOTAL BETA HCG ASSAY 2023-01-01 22:12:00 Wilbur Wilson [facility] POCT URINALYSIS 2022-12-21 16:05:00 Pete Owens [facility] AUTHORIZATION TO RELEASE PHI TO [facility] 2022-12-21 05:01:00 Doctor Unassigned, [place] [facility] POCT URINALYSIS W/O SPECIFIC GRAVITY 2022-12-11 15:38:00 Pete Owens [facility] POCT TEST 2022-12-11 15:37:00 Ptee Owens [facility] POCT TEST 2022-12-09 17:56:00 Tawana Jean [facility] POCT URINALYSIS W/O SPECIFIC GRAVITY 2022-12-09 16:24:00 Tawana Jean [facility] REPORT OF 2022-12-09 05:01:00 Doctor Unassigned, [place] [facility] POCT TEST 2022-10-22 20:16:00 Tawana Jean [facility] PATIENT FINANCIAL POLICY 2022-10-22 20:09:06 Doctor Unassigned, [place] [facility] XR ANKLE <3 VW LEFT 2022-09-28 16:20:43 Govind-Cam, Gillian [facility] XR ANKLE <3 VW LEFT 2022-09-28 16:20:43 Rowdy Gillian [facility] DILATION AND CURETTAGE 2022-09-28 00:56:00 [facility] DILATION AND CURETTAGE 2022-09-28 00:56:00 Rowdy Gillian [facility] FIRST TRIMESTER LESS THAN 14 WEEKS WITH TRANSVAGINAL 2022-09-27 02:21:11 Winifred James [facility] FIRST TRIMESTER LESS THAN 14 WEEKS WITH TRANSVAGINAL 2022-09-27 02:21:11 Winifred James [facility] COMP. METABOLIC PANEL ([id number]) 2022-09-26 23:14:00 Winifred James [facility] TOTAL BETA HCG ASSAY 2022-09-26 23:14:00 Winifred James [facility] CBC WITH DIFF 2022-09-26 23:14:00 Winifred James [facility] PROTHROMBIN TIME / INR 2022-09-26 23:14:00 Winifred James [facility] COMP. METABOLIC PANEL ([id number]) 2022-09-26 23:14:00 Winifred James [facility] TOTAL BETA HCG ASSAY 2022-09-26 23:14:00 Winifred James [facility] CBC WITH DIFF 2022-09-26 23:14:00 Winifred James [facility] PROTHROMBIN TIME / INR 2022-09-26 23:14:00 Winifred James [facility] CONSENT/REFUSAL FOR DIAGNOSI S AND TREATMENT 2022-09-26 22:23:31 Doctor Unassigned, [place] [facility] CONSENT/REFUSAL FOR DIAGNOSI S AND TREATMENT 2022-09-26 22:23:31 Doctor Unassigned, [place] [facility] FIRST TRIMESTER LESS THAN 14 WEEKS WITH TRANSVAGINAL 2022-09-24 06:22:21 Ariana Castro [facility] POCT TEST 2022-09-24 04:43:00 Paige Melissa [facility] BASIC METABOLIC PANEL (NA, K , CL, CO2, GLUCOSE, BUN, CREATININE, CA) 2022-09-24 04:20:00 Ariana Castro [facility] TOTAL BETA HCG ASSAY 2022-09-24 04:20:00 Ariana Castro [facility] CBC WITH DIFF 2022-09-24 04:20:00 Ariana Castro [facility] ASSIGNMENT OF BENEFITS 2022-09-24 03:31:15 Doctor Unassigned, [place] [facility] CONSENT/REFUSAL FOR DIAGNOSI S AND TREATMENT 2022-09-24 03:08:55 Doctor Unassigned, [place] [facility] POCT URINALYSIS 2022-09-23 21:19:00 Tawana Jean [facility] POCT TEST 2022-08-11 21:40:00 Tawana Jean [facility] REPORT OF 2022-08-11 06:01:00 Doctor Unassigned, [place] [facility] POCT URINALYSIS W/O SPECIFIC GRAVITY 2022-08-11 00:00:00 Tawana Jean [facility] CBC WITH DIFF 2022-04-27 08:22:00 Paige Melissa [facility] POCT TEST 2022-04-27 08:22:00 Paige Melissa [facility] NOTICE OF PRIVACY PRACTICES 2022-04-27 07:55:47 Doctor Unassigned, [place] [facility] CONSENT/REFUSAL FOR DIAGNOSI S AND TREATMENT 2022-04-27 07:54:13 Doctor Unassigned, [place] [facility] EXTERNAL PROVIDER RECORDS 2022-04-03 05:01:00 Doctor Unassigned, [place] [facility] POCT TEST 2022-04-02 19:31:00 Louise Prado [facility] THYROID STIMULATING HORMONE 2022-04-02 19:05:00 Louise Prado [facility] Encounters Start Date/Time End Date/Time Encounter Type Admission Type Attending [facility] Care Department Encounter ID Source 2023-12-21 14:16:00 Outpatient [facility] [id number] [facility] 2023-10-29 10:17:01 Outpatient [facility] [id number] [facility] 2023-01-04 10:43:39 Outpatient R BANDAR BACA [facility]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 [id number] [facility] 2021-04-22 01:27:59 Emergency [facility] [id number] [facility] 2021-04-21 19:32:10 Emergency [facility] [id number] [facility] 2021-04-18 21:43:36 Emergency [facility] [id number] [facility] 2024-04-04 10:30:00 2024-04-04 10:30:00 Outpatient LUDY MENJIVAR [facility] [id number] [facility] 2024-04-03 10:20:00 2024-04-03 10:20:00 Outpatient LUDY MENJIVAR [facility] [id number] [facility] 2024-03-15 11:00:00 2024-03-15 11:00:00 Outpatient IRA JAIMES [facility] [id number] [facility] 2024-03-03 00:00:00 2024-03-03 14:25:42 Specialty Pharmacy Mary Valencia Tamara L [facility] 1.2.840.114 350.1.13.10 4.2.7.2.686 [id number] [facility] 2024-03-02 00:00:00 2024-03-02 09:12:24 Specialty Pharmacy Amadeo Cedeño Gary [facility] 1.2.840.114 350.1.13.10 4.2.7.2.686 [id number] [facility] 2024-03-01 11:15:00 2024-03-01 11:30:00 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 1.2.840.114 350.1.13.10 4.2.7.2.686 [id number] [facility] 2024-03-01 10:00:00 2024-03-01 11:03:21 Outpatient R LUANN DUMONT [facility] [id number] [facility] 2024-03-01 10:00:00 2024-03-01 11:03:21 Office Visit Luann Dumont [facility] 1.2.840.114 350.1.13.10 4.2.7.2.686 [id number] [facility] 2024-01-20 00:00:00 2024-02-26 18:24:48 [address]ais Clinton [facility] 1.2.840.114 350.1.13.10 4.2.7.2.686 [id number] [facility] 2024-02-24 00:00:00 2024-02-24 17:21:48 Clinic Assessment Sarah [facility] MEDICAL OFFICE BUILDING 1.2.840.114 350.1.13.10 4.2.7.2.686 [id number] [facility] 2024-02-24 16:00:00 2024-02-24 16:00:00 Outpatient R SARAH ARH [facility] [id number] [facility] 2024-02-23 00:00:00 2024-02-23 08:00:38 Patient Secure Msg Thais Marin A REPLACED BY [facility] 1.2.840.114 350.1.13.10 4.2.7.2.686 [id number] [facility] 2024-02-21 00:00:00 2024-02-21 11:15:36 Specialty Pharmacy Domenica Ludwig Monique [facility] 1.2.840.114 350.1.13.10 4.2.7.2.686 [id number] [facility] 2024-02-17 16:20:00 2024-02-17 16:40:00 Urgent Care Sandra Conley, Attending REPLACED BY [facility] 1..840.114 350.1.13.10 4.2.7.2.686 [id number] [facility] 2024-02-17 16:20:00 2024-02-17 16:20:00 Outpatient R SANDRA CONLEY [facility] [id number] [facility] 2024-02-16 00:00:00 2024-02-16 16:41:31 Telephone Wade Morse Wade [facility] 1..840.114 350.1.13.10 4.2.7.2.686 [id number] [facility] 2024-02-08 13:00:00 2024-02-08 13:00:00 Outpatient R IRA SMITH [facility] [id number] [facility] 2024-02-07 15:05:00 2024-02-07 15:05:00 Outpatient R MIRELLA MARINLIE [facility] [id number] [facility] 2024-01-25 00:00:00 2024-01-25 16:15:42 Patient Secure Msg Doctor Unassigned, [place] Doctor Unassigned, [place] [facility] 1.2.840.114 350.1.13.10 4.2.7.2.686 [id number] [facility] 2024-01-21 00:00:00 2024-01-21 15:32:45 Telephone Azalea Dotson [facility] 1.2.840.114 350.1.13.10 4.2.7.2.686 [id number] [facility] 2024-01-20 00:00:00 2024-01-20 10:56:30 Patient Secure Msg TaniaThais roman [facility] 1.2.840.114 350.1.13.10 4.2.7.2.686 [id number] [facility] 2024-01-20 10:30:00 2024-01-20 10:45:00 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, Ang - Db Tania Thais Marlene [facility] 1.2.840.114 350.1.13.10 4.2.7.2.686 [id number] [facility] 2024-01-20 09:00:00 2024-01-20 09:10:36 Outpatient R THAIS MARIN [facility] [id number] [facility] 2024-01-20 09:00:00 2024-01-20 09:10:36 Office Visit Tania Thais Marlene [facility] 1.2.840.114 350.1.13.10 4.2.7.2.686 [id number] [facility] 2024-01-19 08:30:00 2024-01-19 08:30:00 Outpatient R THAIS MARIN [facility] [id number] [facility] 2024-01-18 15:30:00 2024-01-18 16:00:00 Office Visit Sraah [facility] MARIA ISABEL [facility] 1.2.840.114 350.1.13.10 4.2.7.2.686 [id number] [facility] 2024-01-18 15:30:00 2024-01-18 15:30:00 Outpatient R SARAH ARH [facility] [id number] [facility] 2023-07-14 00:00:00 2024-01-03 11:59:22 [facility] (Out[facility] 1..840.114 350.1.13.10 4.2.7.2.686 [id number] [facility] 2023-11-26 00:00:00 2023-12-13 14:08:[address] [facility] 1..840.114 350.1.13.10 4.2.7.2.686 [id number] [facility] 2023-12-10 15:00:00 2023-12-10 15:00:00 Outpatient R THAIS MARIN [facility] [id number] [facility] 2023-12-02 00:00:00 2023-12-02 14:53:27 Telephone Thais Marin REPLACED BY [facility] 1.2.840.114 350.1.13.10 4.2.7.2.686 [id number] [facility] 2023-12-01 11:00:00 2023-12-01 11:00:00 Outpatient R THAIS MARIN [facility] [id number] [facility] 2023-11-24 00:00:00 2023-11-25 09:52:44 Patient Secure Msg Thais Marin REPLACED BY [facility] 1.2.840.114 350.1.13.10 4.2.7.2.686 [id number] [facility] 2023-11-19 00:00:00 2023-11-24 15:03:15 Patient Secure MsJuan Mondragon [facility] 1.2.840.114 350.1.13.10 4.2.7.2.686 [id number] [facility] 2023-11-16 00:00:00 2023-11-18 10:32:20 [facility] 1.2.840.114 350.1.13.10 4.2.7.2.686 [id number] [facility] 2023-11-17 00:00:00 2023-11-17 15:54:10 Refill Thais Marin [facility]PLACED BY [facility] 1.2.840.114 350.1.13.10 4.2.7.2.686 [id number] [facility] 2023-11-16 12:00:00 2023-11-16 12:30:00 Office Visit Pipadam, [facility] MEDICAL OFFICE BUILDING 1.2.840.114 350.1.13.10 4.2.7.2.686 [id number] [facility] 2023-11-16 09:30:00 2023-11-16 10:32:49 Outpatient R LUDY BRIDGES [facility] [id number] [facility] 2023-11-16 09:30:00 2023-11-16 10:32:49 Office Visit Juan Reece Vijaya Laxmi [facility] 1.2.840.114 350.1.13.10 4.2.7.2.686 [id number] [facility] 2023-10-26 00:00:00 2023-11-01 11:14:23 Refill TaniaKayleighe Marlene [facility] 1.2.840.114 350.1.13.10 4.2.7.2.686 [id number] [facility] 2023-10-26 22:57:00 2023-10-27 01:00:00 Emergency X PAIGE MELISSA [facility] ERT [id number] [facility] 2023-10-26 22:57:00 2023-10-27 01:00:00 Emergency Paige Melissa [facility] 1.2.840.114 350.1.13.10 4.2.7.2.686 [id number] [facility] 2023-10-25 00:00:00 2023-10-25 17:13:10 Telephone Pipes, Ira [facility] BU[facility] 1.2.840.114 350.1.13.10 4.2.7.2.686 [id number] [facility] 2023-10-20 15:00:00 2023-10-20 16:41:08 Outpatient R LANCE GILMAN [facility] [id number] [facility] 2023-10-20 15:00:00 2023-10-20 16:41:08 Office Visit Lance Gilman [facility] 1.2.840.114 350.1.13.10 4.2.7.2.686 [id number] [facility] 2023-10-04 09:30:00 2023-10-04 09:30:00 Outpatient R TAWNYA GAN [facility] [id number] [facility] 2023-09-29 14:30:00 2023-09-29 14:30:00 Outpatient R [facility] [id number] [facility] 2023-09-27 08:00:00 2023-09-27 08:00:00 Outpatient R TAWANA JEAN [facility] [id number] [facility] 2023-09-22 13:45:00 2023-09-22 13:45:00 Outpatient R BOB FLORES CRAIG [facility] [id number] [facility] 2023-09-22 00:00:00 2023-09-22 00:00:00 Case Management [facility] 1.0.114 350.1.13.10 4.2.7.2.686 [id number] [facility] 2023-09-16 00:00:00 2023-09-16 00:00:00 Refill Juan Reece [facility] 1..114 350.1.13.10 4.2.7.2.686 [id number] [facility] 2023-09-16 00:00:00 2023-09-16 00:00:00 Patient Secure Juan Erickson [facility] 1..114 350.1.13.10 4.2.7.2.686 [id number] [facility] 2023-09-15 15:10:00 2023-09-15 16:12:53 Outpatient R LANCE GILMAN [facility] [id number] [facility] 2023-09-15 15:10:00 2023-09-15 16:12:53 Office Visit Lance Gilman [facility] 1.840.114 350.1.13.10 4.2.7.2.686 [id number] [facility] 2023-09-09 14:45:00 2023-09-09 14:45:00 Outpatient R TAWANA JEAN [facility] [id number] [facility] 2023-09-09 10:15:00 2023-09-09 11:28:12 Outpatient R BOB FLORES CRAIG [facility] [id number] [facility] 2023-09-09 10:15:00 2023-09-09 11:28:12 Ancillary Visit Laurie Montejo Craig [facility] 1..840.114 350.1.13.10 4.2.7.2.686 [id number] [facility] 2023-09-09 00:00:00 2023-09-09 00:00:00 Refill Thais Marin REPLACED BY [facility] 1.840.114 350.1.13.10 4.2.7.2.686 [id number] [facility] 2023-09-08 11:00:00 2023-09-08 11:00:00 Outpatient R THAIS MARIN [facility] [id number] [facility] 2023-09-07 00:00:00 2023-09-07 00:00:00 Telephone Tawnya Gan [facility] 1.840.114 350.1.13.10 4.2.7.2.686 [id number] [facility] 2023-09-06 09:30:00 2023-09-06 09:30:00 Outpatient R TAWNYA GAN [facility] [id number] [facility] 2023-09-04 00:00:00 2023-09-04 00:00:00 Refill Kayleigh Marincristian Rosario REPLACED BY [facility] 1..840.114 350.1.13.10 4.2.7.2.686 [id number] [facility] 2023-09-01 15:30:00 2023-09-01 15:30:00 Outpatient R MALIK TAWNYA [facility] [id number] [facility] 2023-09-01 00:00:00 2023-09-01 00:00:00 Patient Secure MsTawnya Mendez [facility] 1.2840.114 350.1.13.10 4.2.7.2.686 [id number] [id number] [facility] 2023-08-30 00:00:00 2023-08-30 00:00:00 Refill Pipes, [facility] MEDICAL OFFICE BUILDING 1.2.840.114 350.1.13.10 4.2.7.2.686 [id number] [facility] 2023-08-26 00:00:00 2023-08-26 00:00:00 Case Management Laurie Montejo [facility] BUILDING 1.2840.114 350.1.13.10 4.2.7.2.686 [id number] [facility] 2023-08-26 00:00:00 2023-08-26 00:00:00 Refill Pipes, [facility] MEDICAL OFFICE BUILDING 1.2840.114 350.1.13.10 4.2.7.2.686 [id number] [id number] [facility] 2023-08-26 00:00:00 2023-08-26 00:00:00 Bronwyn Malik [facility] 1.2840.114 350.1.13.10 4.2.7.2.686 [id number] [facility] 2023-08-25 13:58:00 2023-08-25 23:59:00 Outpatient BRONWYN KWONG [facility] [id number] [facility] 2023-08-25 13:58:00 2023-08-25 23:59:00 Hospital Encounter Bronwyn Wellington [facility] 1.2.840.114 350.1.13.10 4.2.7.2.686 [id number] [facility] 2023-08-25 13:40:00 2023-08-25 14:51:03 Office Visit Bronwyn Wellington [facility] 1.2.840.114 350.1.13.10 4.2.7.2.686 [id number] [facility] 2023-08-20 13:00:00 2023-08-20 14:03:14 Outpatient R PETE OWENS [facility] [id number] [facility] 2023-08-20 13:00:00 2023-08-20 14:03:14 Nurse Visit Visit, Ang-Rmchp Nurse Pete Owens [facility] ELECTRICIAN SUPERVISOR SUBSTATION [facility] MATERNAL & CHILD [facility] 1..840.114 350.1.13.10 4.2.7.2.686 [id number] [facility] 2023-08-17 09:30:00 2023-08-17 09:30:00 Outpatient R JOCY MICHAEL [facility] [id number] [facility] 2023-08-17 00:00:00 2023-08-17 00:00:00 Case Management Laurie Montejo [facility] ..840.114 350.1.13.10 4.2.7.2.686 [id number] [facility] 2023-08-16 09:00:00 2023-08-16 09:26:12 Outpatient R IRA SMITH [facility] [id number] [facility] 2023-08-16 09:00:00 2023-08-16 09:26:12 Office Visit Juwan Smithi [facility] MEDICAL OFFICE BUILDING 1.84114 350.1.13.10 4.2.7.2.686 [id number] [facility] 2023-08-13 14:35:00 2023-08-13 17:12:00 Emergency X BOGDAN GABRIEL [facility] ERT [id number] [facility] 2023-08-13 14:35:00 2023-08-13 17:12:00 Emergency Bogdan Gabriel [facility] 1.84.114 350.1.13.10 4.2.7.2.686 [id number] [id number] [facility] 2023-08-13 13:15:00 2023-08-13 13:15:00 Outpatient R PETE OWENS [facility] [id number] [facility] 2023-08-13 00:00:00 2023-08-13 00:00:00 Patient Secure Msg Pete Owens [facility] ELECTRICIAN SUPERVISOR SUBSTATION [facility] MATERNAL & [facility] 1.84.114 350.1.13.10 4.2.7.2.686 [id number] [facility] 2023-08-09 11:00:00 2023-08-09 11:00:00 Outpatient R SARAH ARH [facility] [id number] [facility] 2023-08-09 00:00:00 2023-08-09 00:00:00 Telephone Lorena Kirk [facility] MEDICAL OFFICE BUILDING 1.84.114 350.1.13.10 4.2.7.2.686 [id number] [id number] [facility] 2023-08-02 00:00:00 2023-08-02 00:00:00 Telephone Bronwyn Wellington [facility] 1.84.114 350.1.13.10 4.2.7.2.686 [id number] [facility] 2023-07-30 00:00:00 2023-07-30 00:00:00 Patient Secure Msg Bronwyn Wellington [facility] 1.0.114 350.1.13.10 4.2.7.2.686 [id number] [facility] 2023-07-29 14:05:00 2023-07-29 23:59:00 Hospital Encounter [facility] 1.0.114 350.1.13.10 4.2.7.2.686 [id number] [facility] 2023-07-29 15:00:00 2023-07-29 15:15:00 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, [facility] Juan Hernandez Emilio B [facility] 1..114 350.1.13.10 4.2.7.2.686 [id number] [facility] 2023-07-29 13:40:00 2023-07-29 14:40:01 [id number] 2023-07-29 13:40:00 2023-07-29 14:00:00 Office Visit [facility] 1..114 350.1.13.10 4.2.7.2.686 [id number] [facility] 2023-07-28 15:00:00 2023-07-28 15:00:00 Outpatient R BRONWYN WELLINGTON [facility] [id number] [facility] 2023-07-26 00:00:00 2023-07-26 00:00:00 Patient Secure Msg Malik [facility] ..114 350.1.13.10 4.2.7.2.686 [id number] [facility] 2023-07-23 00:00:00 2023-07-23 00:00:00 Orders Only Doctor Unassigned, [place] [facility] 1.84.114 350.1.13.10 4.2.7.2.686 [id number] [facility] 2023-07-21 00:00:00 2023-07-21 00:00:00 Refill Thais Marin REPLACED BY [facility] MEDICAL OFFICE BUILDING 1.840.114 350.1.13.10 4.2.7.2.686 [id number] 044 [id number] [facility] 2023-07-14 15:30:00 2023-07-14 16:00:00 Office Visit Tawnya Gan [facility] 1..114 350.1.13.10 4.2.7.2.686 [id number] [facility] 2023-07-14 15:30:00 2023-07-14 15:30:00 Outpatient TAWNYA LEE [facility] [id number] [facility] 2023-07-14 14:00:00 2023-07-14 14:00:00 Outpatient Alannah GAN [facility] [id number] [facility] 2023-07-13 11:00:00 2023-07-13 11:00:00 Outpatient R MALIK [facility] [id number] [facility] 2023-07-13 00:00:00 2023-07-13 00:00:00 Refill Irene Mari REPLACED BY [facility] MEDICAL OFFICE BUILDING 1..840.114 350.1.13.10 4.2.7.2.686 [id number] [facility] 2023-07-07 14:20:00 2023-07-07 15:54:59 Outpatient R BRONWYN WELLINGTON [facility] [id number] [facility] 2023-07-07 14:20:00 2023-07-07 15:54:59 Office Visit Bronwyn Wellington [facility] [place] [facility] 1.2.840.114 350.1.13.10 4.2.7.2.686 [id number] [facility] 2023-07-05 00:00:00 2023-07-05 00:00:00 Case Management Tawana Jean [facility] ELECTRICIAN SUPERVISOR SUBSTATION [facility] & CHILD [facility] 1.2.840.114 350.1.13.10 4.2.7.2.686 [id number] [facility] 2023-07-05 00:00:00 2023-07-05 00:00:00 Patient Secure Msg Bronwyn Wellington [facility] 1.2.840.114 350.1.13.10 4.2.7.2.686 [id number] [facility] 2023-07-05 00:00:00 2023-07-05 00:00:00 Patient Secure Msg Tawana Jean [facility] ELECTRICIAN SUPERVISOR SUBSTATION [facility] 1.2.840.114 350.1.13.10 4.2.7.2.686 [id number] [facility] 2023-07-02 00:00:00 2023-07-02 00:00:00 Telephone Tawana Jean [facility] ELECTRICIAN SUPERVISOR SUBSTATION [facility] 1.2.840.114 350.1.13.10 4.2.7.2.686 [id number] [facility] 2023-07-01 14:45:00 2023-07-01 15:52:34 Outpatient R TAWANA JEAN [facility] [id number] [facility] 2023-07-01 14:45:00 2023-07-01 15:52:34 Office Visit Tawana Jean [facility] ELECTRICIAN SUPERVISOR SUBSTATION [facility] & CHILD [facility] 1.2.840.114 350.1.13.10 4.2.7.2.686 [id number] [facility] 2023-07-01 00:00:00 2023-07-01 00:00:00 Letter (Out) Tawana Jean [facility] ELECTRICIAN SUPERVISOR SUBSTATION [facility] & CHILD [facility] 1.2840.114 350.1.13.10 4.2.7.2.686 [id number] [facility] 2023-06-30 15:00:00 2023-06-30 15:00:00 Outpatient R TAWNYA GAN [facility] [id number] [facility] 2023-06-23 12:50:00 2023-06-23 14:31:22 Outpatient R BRONWYN WELLINGTON [facility] [id number] [facility] 2023-06-23 12:50:00 2023-06-23 14:31:22 Office Visit Bronwyn Wellington [facility] [place] [facility] 1.840.114 350.1.13.10 4.2.7.2.686 [id number] [facility] 2023-06-23 00:00:00 2023-06-23 00:00:00 Patient Secure Msg Bronwyn Wellington [facility] [place] [facility] 1.0.114 350.1.13.10 4.2.7.2.686 [id number] [facility] 2023-06-23 00:00:00 2023-06-23 00:00:00 Patient Secure Msg Doctor Unassigned, [place] [facility] 1.840.114 350.1.13.10 4.2.7.2.686 [id number] [facility] 2023-06-22 08:00:00 2023-06-22 09:11:03 Outpatient R UNRULY TRAN [facility] [id number] [facility] 2023-06-22 08:00:00 2023-06-22 09:11:03 Office Visit Juna Reece Emilio B [facility] 1.114 350.1.13.10 4.2.7.2.686 [id number] [id number] [facility] 2023-06-22 00:00:00 2023-06-22 00:00:00 Telephone Bronwyn Wellington [facility] SPECIAL[facility] 1..114 350.1.13.10 4.2.7.2.686 [id number] [facility] 2023-06-21 18:13:00 2023-06-21 20:19:00 Emergency X JESSICA TORRES [facility] ERT [id number] [facility] 2023-06-21 18:13:00 2023-06-21 20:19:00 Emergency Jessica Torres [facility] 1..114 350.1.13.10 4.2.7.2.686 [id number] 084 [id number] [facility] 2023-06-21 00:00:00 2023-06-21 00:00:00 Patient Secure Msg Thais Marin [facility] MED[facility] OFF[facility] BUILDING 1..114 350.1.13.10 4.2.7.2.686 [id number] [id number] [facility] 2023-06-20 00:00:00 2023-06-20 00:00:00 Telephone Thais Marin [facility] [place] MEDICAL OFFICE BUILDING 1..114 350.1.13.10 4.2.7.2.686 [id number] [id number] [facility] 2023-06-17 00:00:00 2023-06-17 00:00:00 Patient Secure Thais Liu REPLACED BY [facility] 1.84.114 350.1.13.10 4.2.7.2.686 [id number] [facility] 2023-06-16 20:00:00 2023-06-16 20:36:02 Outpatient R IRENE MARI [facility] [id number] [facility] 2023-06-16 20:00:00 2023-06-16 20:36:02 Urgent Care Irene Mari Unknown, Attending REPLACED BY [facility] 1.84.114 350.1.13.10 4.2.7.2.686 [id number] [facility] 2023-06-10 10:30:00 2023-06-10 10:30:00 Outpatient R ROMULO CHERRY STRAHIL [facility] [id number] [facility] 2023-06-03 10:00:00 2023-06-03 10:15:00 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 [facility] Sleep Lab Romulo Cherry [facility] ..114 350.1.13.10 4.2.7.2.686 [id number] [facility] 2023-06-03 10:00:00 2023-06-03 10:00:00 Outpatient R ROMULO CHERRY STRAHIL [facility] [id number] [facility] 2023-06-03 00:00:00 2023-06-03 00:00:00 Orders Only Doctor Unassigned, [place] [facility] 1..114 350.1.13.10 4.2.7.2.686 [id number] [facility] 2023-06-01 09:00:00 2023-06-01 09:00:00 Outpatient R ROMULO CHERRY KETANCHRISTALROMULO [facility] [id number] [facility] 2023-05-26 14:00:00 2023-05-26 14:41:13 Outpatient R THAIS MARIN [facility] [id number] [facility] 2023-05-26 14:00:00 2023-05-26 14:41:13 [facility] 1.2.840.114 350.1.13.10 4.2.7.2.686 [id number] [facility] 2023-05-26 00:00:00 2023-05-26 00:00:00 Tele[facility] 1..840.114 350.1.13.10 4.2.7.2.686 [id number] [facility] 2023-05-21 09:00:00 2023-05-21 09:00:00 Outpatient R THAIS MARIN [facility] [id number] [facility] 2023-05-18 13:32:49 2023-05-18 23:59:00 Outpatient R CARLITO MORAN [facility] [id number] [facility] 2023-05-18 13:00:00 2023-05-18 23:59:00 Hospital Encounter Carlito Moran [facility] ..840.114 350.1.13.10 4.2.7.2.686 [id number] [facility] 2023-05-10 14:30:00 2023-05-10 15:53:08 Outpatient R CARLITO MORAN [facility] [id number] [facility] 2023-05-10 14:30:00 2023-05-10 15:53:08 Routine Visit Clinic, [facility] Resident Carlito Moran [facility] 1.0.114 350.1.13.10 4.2.7.2.686 [id number] [facility] 2023-05-06 11:30:00 2023-05-06 12:05:01 Outpatient LORENA ALEX [facility] [id number] [facility] 2023-05-06 11:30:00 2023-05-06 12:05:01 Office Visit Lorena Kirk [facility] MEDICAL OFFICE BUILDING 1.84.114 350.1.13.10 4.2.7.2.686 [id number] [facility] 2023-05-06 00:00:00 2023-05-06 00:00:00 Letter (Out) Lorena Kirk [facility] MEDICAL OFFICE BUILDING 1.2.840.114 350.1.13.10 4.2.7.2.686 [id number] [id number] [facility] 2023-05-04 00:00:00 2023-05-04 00:00:00 Patient Secure Msg Doctor Unassigned, [place] [facility] 1..114 350.1.13.10 4.2.7.2.686 [id number] [facility] 2023-05-03 00:00:00 2023-05-03 00:00:00 Transition of Care Shy Posada 1.84.114 350.1.13.10 4.2.7.2.686 [id number] [facility] 2023-04-26 05:34:00 2023-05-01 17:08:00 Inpatient R LORENA KIRK [facility] ELOY [id number] [facility] 2023-04-26 05:34:00 2023-05-01 17:08:00 Hospital Encounter Bandar Baca Luisa, Carlito Patti Kirk, Lorena Mari [facility] 1.84.114 350.1.13.10 4.2.7.2.686 [id number] [facility] 2023-04-23 16:00:00 2023-04-23 17:14:36 Outpatient R THAIS MARIN [facility] [id number] [facility] 2023-04-23 16:00:00 2023-04-23 17:14:36 Office Visit Thais Marin REPLACED BY [facility] 1.2.840.114 350.1.13.10 4.2.7.2.686 [id number] [id number] [facility] 2023-04-14 00:00:00 2023-04-14 00:00:00 Patient Secure Msg Umaña-Orti Jose webb [facility] PRIMARY CARE PAVILLION 1.840.114 350.1.13.10 4.2.7.2.686 [id number] [facility] 2023-04-14 00:00:00 2023-04-14 00:00:00 Patient Secure Msg Doctor Unassigned, [place] REPLACED BY [facility] 1.84.114 350.1.13.10 4.2.7.2.686 [id number] [id number] [facility] 2023-04-12 00:00:00 2023-04-12 00:00:00 Patient Secure Msg Doctor Unassigned, [place] [facility] 1.284.114 350.1.13.10 4.2.7.2.686 [id number] [facility] 2023-04-09 10:30:00 2023-04-09 10:45:00 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 Pcp-Lab Ludy Bridges [facility] PRIMARY CARE PAVILLION 1.2.840.114 350.1.13.10 4.2.7.2.686 [id number] [facility] 2023-04-09 08:30:00 2023-04-09 10:17:59 Outpatient R LUDY BRIDGES [facility] [id number] [facility] 2023-04-09 08:30:00 2023-04-09 10:17:59 Office Visit Jose Cardona Vijaya Laxmi [facility]IMARY CARE PAVILLION 1.2.840.114 350.1.13.10 4.2.7.2.686 [id number] [facility] 2023-04-09 00:00:00 2023-04-09 00:00:00 Letter (Out) Jose Cardona [facility] PRIMARY CARE PAVILLION 1.2840.114 350.1.13.10 4.2.7.2.686 [id number] 086 [id number] [facility] 2023-04-08 00:00:00 2023-04-08 00:00:00 Telephone Thais Marin [facility] 1.2840.114 350.1.13.10 4.2.7.2.686 [id number] 044 [id number] [facility] 2023-04-08 00:00:00 2023-04-08 00:00:00 Patient Secure Msg Doctor Unassigned, [place] REPLACED BY [facility] 1.2840.114 350.1.13.10 4.2.7.2.686 [id number] [id number] [facility] 2023-04-07 14:15:00 2023-04-07 15:42:31 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, Ang - Db Thais Marin [facility] 1.84.114 350.1.13.10 4.2.7.2.686 [id number] [facility] 2023-04-07 13:30:00 2023-04-07 14:10:07 [facility] [id number] 2023-04-07 13:30:00 2023-04-07 14:10:07 Office Visit Tania Thais [facility] BUILD[facility] 1.840.114 350.1.13.10 4.2.7.2.686 [id number] [facility] 2023-04-05 13:15:00 2023-04-05 15:10:25 Outpatient R BANDAR BACA [facility] [id number] [facility] 2023-04-05 13:15:00 2023-04-05 15:10:25 [facility]..114 350.1.13.10 4.2.7.2.686 [id number] [facility] 2023-03-23 13:00:00 2023-03-23 13:00:00 Outpatient R [facility] [id number] [facility] 2023-03-23 00:00:00 2023-03-23 00:00:00 Telephone Alissa Leon [facility] 1..114 350.1.13.10 4.2.7.2.686 [id number] [facility] 2023-03-12 00:00:00 2023-03-12 00:00:00 Telephone Tawana Jean [facility] ELECTRICIAN SUPERVISOR SUBSTATION [facility] MATERNAL & CHILD HEALTH [facility] 1.0.114 350.1.13.10 4.2.7.2.686 [id number] [facility] 2023-02-05 09:00:00 2023-02-05 09:00:00 Outpatient R TAWANA JEAN [facility] [id number] [facility] 2023-02-04 11:00:00 2023-02-04 11:00:00 Outpatient R DEANKEVIN LILLYMINDY NERISSAARY [facility] [id number] [facility] 2023-02-01 10:15:00 2023-02-01 14:26:48 Outpatient R BANDAR BACA [facility] [id number] [facility] 2023-02-01 10:15:00 2023-02-01 14:26:48 Telemedici ne Natali Trimester, [facility] Res-1st Bandar Baca [facility] .840.114 350.1.13.10 4.2.7.2.686 [id number] [facility] 2023-01-26 16:00:00 2023-01-26 16:00:00 Outpatient R DEANKEVIN LILLY ELSIEÁNGELKAYLAKEVIN [facility] [id number] [facility] 2023-01-26 00:00:00 2023-01-26 00:00:00 Patient Secure Msg Tawana Jean [facility] ELECTRICIAN SUPERVISOR SUBSTATION [facility] MATERNAL & [facility]ILD [facility] 1.840.114 350.1.13.10 4.2.7.2.686 [id number] [facility] 2023-01-25 20:52:00 2023-01-25 23:28:00 Emergency X GAURAV JOHN [facility] ERT [id number] [facility] 2023-01-25 20:52:00 2023-01-25 23:28:00 Emergency Gaurav John [facility] .840.114 350.1.13.10 4.2.7.2.686 [id number] [facility] 2023-01-18 14:39:00 2023-01-18 16:33:00 Emergency X PRAMOD DEB [facility] ERT [id number] [facility] 2023-01-18 14:39:00 2023-01-18 16:33:00 Emergency Deb Benavidez [facility] 1.0.114 350.1.13.10 4.2.7.2.686 [id number] [facility] 2023-01-18 09:30:00 2023-01-18 11:22:09 Outpatient R BANDAR BACA [facility] [id number] [facility] 2023-01-18 09:30:00 2023-01-18 11:22:09 Routine Visit Trimester, [facility] Res-1st Bandar Baca [facility] 1..114 350.1.13.10 4.2.7.2.686 [id number] [facility] 2023-01-14 00:00:00 2023-01-14 00:00:00 Patient Secure Msg BraulioLotusMariajose Shahab [facility] 1.84.114 350.1.13.10 4.2.7.2.686 [id number] [facility] 2023-01-08 10:30:00 2023-01-09 17:30:00 Outpatient X BRAULIO MARIAJOSE [facility] SAIMA [id number] [facility] 2023-01-08 10:30:00 2023-01-09 17:30:00 Emergency OrlandotincarmenClary Mariajose Shahab [facility] 1.84.114 350.1.13.10 4.2.7.2.686 [id number] [facility] 2023-01-08 20:03:18 2023-01-08 20:03:18 Anesthesia Event Ese Puga Fernando [facility] 1.2.840.114 350.1.13.10 4.2.7.2.686 [id number] [facility] 2023-01-08 17:45:00 2023-01-08 19:13:00 Surgery Davidrafaela Mariajose Gudino [facility] 1.2.840.114 350.1.13.10 4.2.7.2.686 [id number] [facility] 2023-01-08 10:30:00 2023-01-08 10:30:00 Outpatient PETE CONNOR [facility] [id number] [facility] 2023-01-04 12:21:39 2023-01-04 23:59:00 Hospital Encounter [facility] 1.0.114 350.1.13.10 4.2.7.2.686 [id number] [facility] 2023-01-04 08:30:00 2023-01-04 11:08:47 Outpatient P GUILLERMINA BANDAR [facility] [id number] [facility] 2023-01-04 08:30:00 2023-01-04 11:08:47 Routine Visit Trimester, [facility] Res-1st [facility] 1.0.114 350.1.13.10 4.2.7.2.686 [id number] [facility] 2023-01-04 10:45:00 2023-01-04 11:00:00 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 [facility] 1.2840.114 350.1.13.10 4.2.7.2.686 [id number] [facility] 2023-01-01 22:42:00 2023-01-02 01:04:00 Emergency X GAURAV JOHN [facility] ERT [id number] [facility] 2023-01-01 22:42:00 2023-01-02 01:04:00 Emergency Gaurav John [facility] 1.2.840.114 350.1.13.10 4.2.7.2.686 [id number] [facility] 2023-01-01 16:00:00 2023-01-01 16:47:46 Outpatient R [facility] [id number] [facility] 2023-01-01 16:00:00 2023-01-01 16:47:46 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840.114 350.1.13.10 4.2.7.2.686 [id number] [facility] 2023-01-01 00:00:00 2023-01-01 00:00:00 Patient Secure Msg Doctor Unassigned, [place] [facility] 1.2.840.114 350.1.13.10 4.2.7.2.686 [id number] [facility] 2022-12-21 10:30:00 2022-12-21 11:40:15 Outpatient TAWANA LLANOS [facility] [id number] [facility] 2022-12-21 10:30:00 2022-12-21 11:40:15 Routine Visit Tawana Jean [facility] ELECTRICIAN SUPERVISOR SUBSTATION [facility] & CHILD [facility] 1.2.840.114 350.1.13.10 4.2.7.2.686 [id number] [facility] 2022-12-21 10:30:00 2022-12-21 10:30:00 Outpatient R TAWAAN JEAN [facility] [id number] [facility] 2022-12-21 00:00:00 2022-12-21 00:00:00 Orders Only Doctor Unassigned, [place] [facility] 1.840.114 350.1.13.10 4.2.7.2.686 [id number] [facility] 2022-12-18 09:30:00 2022-12-18 09:30:00 Outpatient R PETE OWENS [facility] [id number] [facility] 2022-12-17 00:00:00 2022-12-17 00:00:00 Patient Secure Msg Pete Owens [facility] ELECTRICIAN SUPERVISOR SUBSTATION [facility] & CHILD [facility] 1.840.114 350.1.13.10 4.2.7.2.686 [id number] 107 [id number] [facility] 2022-12-14 00:00:00 2022-12-14 00:00:00 Telephone Pete Owens [facility] ELECTRICIAN SUPERVISOR SUBSTATION [facility] & CHILD [facility] 1.2840.114 350.1.13.10 4.2.7.2.686 [id number] 107 [id number] [facility] 2022-12-12 00:00:00 2022-12-12 00:00:00 Case Management Tawana Jean [facility] ELECTRICIAN SUPERVISOR SUBSTATION [facility] & CHILD [facility] 1.2.840.114 350.1.13.10 4.2.7.2.686 [id number] 107 [id number] [facility] 2022-12-12 00:00:00 2022-12-12 00:00:00 Patient Secure Msg Roman Pete Piedra [facility] ELECTRICIAN SUPERVISOR SUBSTATION [facility] & CHILD [facility] 1.0.114 350.1.13.10 4.2.7.2.686 [id number] [facility] 2022-12-11 10:00:00 2022-12-11 12:03:06 Outpatient R PETE OWENS [facility] [id number] [facility] 2022-12-11 10:00:00 2022-12-11 12:03:06 Initial Visit Pete Owens [facility] ELECTRICIAN SUPERVISOR SUB[facility]ATION [facility] & CHILD [facility] 1..114 350.1.13.10 4.2.7.2.686 [id number] [facility] 2022-12-09 10:45:00 2022-12-09 12:04:26 Outpatient R TAWANA JEAN [facility] [id number] [facility] 2022-12-09 10:45:00 2022-12-09 12:04:26 Office Visit Tawana Jean [facility] ELECTRICIAN SUPERVISOR [facility] 1..114 350.1.13.10 4.2.7.2.686 [id number] 107 [id number] [facility] 2022-12-09 00:00:00 2022-12-09 00:00:00 Orders Only Doctor Unassigned, [place] [facility] 1..114 350.1.13.10 4.2.7.2.686 [id number] [facility] 2022-12-07 00:00:00 2022-12-07 00:00:00 Patient Secure Msg Tawnaa Jean [facility] ELECTRICIAN SUPERVISOR [facility]ATION [facility] & CHILD [facility] 1.0.114 350.1.13.10 4.2.7.2.686 [id number] 107 [id number] [facility] 2022-12-03 00:00:00 2022-12-03 00:00:00 Telephone Pcp, Patient Does Not Have A [facility] 1.0.114 350.1.13.10 4.2.7.2.686 [id number] [facility] 2022-11-27 08:45:00 2022-11-27 08:45:00 Outpatient R PETE OWENS [facility] [id number] [facility] 2022-11-26 13:45:00 2022-11-26 13:45:00 Outpatient R TAWANA JEAN [facility] [id number] [facility] 2022-11-26 10:45:00 2022-11-26 10:45:00 Outpatient R TAWANA JEAN [facility] [id number] [facility] 2022-11-12 15:00:00 2022-11-12 15:39:24 Outpatient R TAWANA JEAN [facility] [id number] [facility] 2022-11-12 15:00:00 2022-11-12 15:39:24 Office Visit Tawana Jean [facility] ELECTRICIAN SUPERVISOR [facility]NAL & [facility] 1.840.114 350.1.13.10 4.2.7.2.686 [id number] [facility] 2022-11-11 13:00:00 2022-11-11 13:00:00 Outpatient R [facility] [id number] [facility] 2022-11-11 00:00:00 2022-11-11 00:00:00 Telephone Karon Zazueta [facility] 1.0.114 350.1.13.10 4.2.7.2.686 [id number] [facility] 2022-10-28 00:00:00 2022-10-28 00:00:00 Telephone Karon Zazueta [facility] 1.114 350.1.13.10 4.2.7.2.686 [id number] [facility] 2022-10-22 15:00:00 2022-10-22 15:40:25 Outpatient TAWANA LLANOS [facility] [id number] [facility] 2022-10-22 15:00:00 2022-10-22 15:40:25 Routine Visit Tawana Jean [facility] ELECTRICIAN SUPERVISOR [facility]NAL & [facility]ILD [facility] 1..114 350.1.13.10 4.2.7.2.686 [id number] 107 [id number] [facility] 2022-10-22 00:00:00 2022-10-22 00:00:00 Orders Only Doctor Unassigned, [place] [facility] 1.114 350.1.13.10 4.2.7.2.686 [id number] [facility] 2022-10-20 10:45:00 2022-10-20 10:45:00 Outpatient TAWANA LLANOS [facility] [id number] [facility] 2022-10-13 08:45:00 2022-10-13 08:45:00 Outpatient TAWANA LLANOS [facility] [id number] [facility] 2022-09-29 09:15:00 2022-09-29 09:15:00 Outpatient SANDHYA ASKEW KARREN [facility] [id number] [facility] 2022-09-29 00:00:00 2022-09-29 00:00:00 Patient Secure [facility]ara evelia [facility] 1..114 350.1.13.10 4.2.7.2.686 [id number] [facility] 2022-09-26 17:36:00 2022-09-28 13:20:00 Outpatient X PAIGE MELISSA [facility] OBF [id number] [facility] 2022-09-26 17:36:00 2022-09-28 13:20:00 Emergency Dreleobardo, Winifred Anne Paige Melissa Vien Cam [facility] 1.2.840.114 350.1.13.10 4.2.7.2.686 [id number] [facility] 2022-09-28 13:15:00 2022-09-28 13:15:00 Outpatient R TAWANA JEAN [facility] [id number] [facility] 2022-09-28 00:00:00 2022-09-28 00:00:00 Patient Secure Msg Tawana Jean [facility] ELECTRICIAN SUPERVISOR [facility] MATERNAL & CHILD HEALTH [facility] 1.2.840.114 350.1.13.10 4.2.7.2.686 [id number] 107 [id number] [facility] 2022-09-27 19:45:00 2022-09-27 21:10:00 Surgery Gillian Wagner [facility] 1.2.840.114 350.1.13.10 4.2.7.2.686 [id number] [facility] 2022-09-23 22:37:00 2022-09-24 02:17:00 Emergency X ARIANA CASTRO [facility] ERT [id number] [facility] 2022-09-23 22:37:00 2022-09-24 02:17:00 Emergency Ariana Castro [facility] 1.2.840.114 350.1.13.10 4.2.7.2.686 [id number] [facility] 2022-09-24 00:00:00 2022-09-24 00:00:00 Case Management EleonoramarshallTawana [facility] ELECTRICIAN SUPERVISOR SUBSTATION [facility] & CHILD [facility] 1.2.840.114 350.1.13.10 4.2.7.2.686 [id number] 107 [id number] [facility] 2022-09-24 00:00:00 2022-09-24 00:00:00 Patient Secure Msg EleonoramarshallTawana [facility] ELECTRICIAN SUPERVISOR SUB[facility]ATION [facility] & CHILD [facility] 1.2.840.114 350.1.13.10 4.2.7.2.686 [id number] 107 [id number] [facility] 2022-09-23 16:00:00 2022-09-23 16:48:21 Outpatient R TAWANA JEAN [facility] [id number] [facility] 2022-09-23 16:00:00 2022-09-23 16:48:21 Routine Visit Tawana Jean [facility] ELECTRICIAN SUPERVISOR SUB[facility]ATION [facility] & CHILD [facility] 1.2.840.114 350.1.13.10 4.2.7.2.686 [id number] 107 [id number] [facility] 2022-09-23 12:45:00 2022-09-23 12:45:00 Outpatient R TAWANA JEAN [facility] [id number] [facility] 2022-09-17 16:00:00 2022-09-17 16:00:00 Outpatient R [facility] [id number] [facility] 2022-09-10 15:45:00 2022-09-10 15:45:00 Outpatient R TAWANA JEAN [facility] [id number] [facility] 2022-09-08 13:45:00 2022-09-08 13:45:00 Outpatient R TAWANA JEAN [facility] [id number] [facility] 2022-08-28 00:00:00 2022-08-28 00:00:00 Patient Secure Tawana Ortiz [facility] ELECTRICIAN SUPERVISOR [facility] & CHILD [facility] 1.2.840.114 350.1.13.10 4.2.7.2.686 [id number] [facility] 2022-08-27 00:00:00 2022-08-27 00:00:00 Patient Secure Tawana Ortiz [facility] ELECTRICIAN SUPERVISOR SUBSTATION [facility] CHILD [facility] 1.2.840.114 350.1.13.10 4.2.7.2.686 [id number] 107 [id number] [facility] 2022-08-13 00:00:00 2022-08-13 00:00:00 Case Management Tawana Jean [facility] CHILD [facility] 1.2.840.114 350.1.13.10 4.2.7.2.686 [id number] 107 [id number] [facility] 2022-08-13 00:00:00 2022-08-13 00:00:00 Patient Secure Tawana Ortiz [facility] ELECTRICIAN SUPERVISOR SUBSTATION [facility] CHILD [facility] 1.2.840.114 350.1.13.10 4.2.7.2.686 [id number] [facility] 2022-08-12 07:45:00 2022-08-12 08:09:39 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, Ang-Rmchp RoxannNancy rosarionda [facility] ELECTRICIAN SUPERVISOR SUBSTATION [facility] CHILD [facility] 1.2.840.114 350.1.13.10 4.2.7.2.686 [id number] 107 [id number] [facility] 2022-08-12 07:45:00 2022-08-12 07:45:00 Outpatient TAWANA LLANOS [facility] [id number] [facility] 2022-08-11 14:30:00 2022-08-11 16:26:19 Outpatient TAWANA LLANOS [facility] [id number] [facility] 2022-08-11 14:30:00 2022-08-11 16:26:19 Initial Visit Provider, Tawana Metcalf [facility] ELECTRICIAN SUPERVISOR SUB[facility] MATERNAL & CHILD HEALTH [facility] 1.84.114 350.1.13.10 4.2.7.2.686 [id number] 107 [id number] [facility] 2022-08-11 00:00:00 2022-08-11 00:00:00 Orders Only Doctor Unassigned, [place] [facility] 1..114 350.1.13.10 4.2.7.2.686 [id number] [facility] 2022-07-14 08:15:00 2022-07-14 08:15:00 Outpatient R TAWANA JEAN [facility] [id number] [facility] 2022-05-23 10:30:00 2022-05-23 10:30:00 Outpatient R [facility] [id number] [facility] 2022-05-23 10:30:00 2022-05-23 10:30:00 Outpatient R CM CERVANTES [facility] [id number] [facility] 2022-05-01 08:00:00 2022-05-01 08:00:00 Outpatient TAWANA LLANOS [facility] [id number] [facility] 2022-04-30 07:45:00 2022-04-30 07:45:00 Outpatient WILBERT MNUGUIA [facility] [id number] [facility] 2022-04-27 02:06:00 2022-04-27 02:53:00 Emergency X WINIFRED JAMES [facility] ERT [id number] [facility] 2022-04-27 02:06:00 2022-04-27 02:53:00 Emergency Winifred James [facility] 1.840.114 350.1.13.10 4.2.7.2.686 [id number] [facility] 2022-04-27 00:00:00 2022-04-27 00:00:00 Orders Only Doctor Unassigned, [place] [facility] 1.2840.114 350.1.13.10 4.2.7.2.686 [id number] [facility] 2022-04-18 10:45:00 2022-04-18 11:50:36 Outpatient R SANGEETHA LOERASIE [facility] [id number] [facility] 2022-04-18 10:45:00 2022-04-18 11:50:36 Office Visit Provider, Sangeetha Hickmansie [facility] ELECTRICIAN SUPERVISOR [facility] MATERNAL & CHILD [facility] 1.840.114 350.1.13.10 4.2.7.2.686 [id number] [facility] 2022-04-17 00:00:00 2022-04-17 00:00:00 Telephone Pete Owens [facility] ELECTRICIAN SUPERVISOR SUBSTATION [facility] & CHILD [facility] 1..114 350.1.13.10 4.2.7.2.686 [id number] 107 [id number] [facility] 2022-04-16 12:45:00 2022-04-16 12:45:00 Outpatient R TAWANA JEAN [facility] [id number] [facility] 2022-04-03 00:00:00 2022-04-03 00:00:00 Orders Only Doctor Unassigned, [place] [facility] 1..114 350.1.13.10 4.2.7.2.686 [id number] [facility] 2022-04-02 12:45:00 2022-04-02 14:18:13 Outpatient R LOUISE PRADO [facility] [id number] [facility] 2022-04-02 12:45:00 2022-04-02 14:18:13 Office Visit Provider, David-Rmchp Wilbert Marin Kathryn C [facility] ELECTRICIAN SUPERVISOR SUB[facility] MATERNAL & CHILD [facility] 1.840.114 350.1.13.10 4.2.7.2.686 [id number] 107 [id number] [facility] 2022-04-01 09:00:00 2022-04-01 09:00:00 Outpatient WILBERT MUNGUIA [facility] [id number] [facility] 2022-01-21 13:15:00 2022-01-21 13:15:00 Outpatient PETE CONNOR [facility] [id number] [facility] 2022-01-16 00:00:00 2022-01-16 00:00:00 Jamie Carroll [facility] ELECTRICIAN SUPERVISOR SUBSTATION [facility] & CHILD [facility] 1.840.114 350.1.13.10 4.2.7.2.686 [id number] 107 [id number] [facility] 2022-01-15 00:00:00 2022-01-15 00:00:00 Patient Secure Msg Doctor Unassigned, [place] [facility] .840.114 350.1.13.10 4.2.7.2.686 [id number] [facility] 2022-01-14 00:00:00 2022-01-14 00:00:00 Outpatient ARMINDA_JOJOI AMELIA MSDOMINICK [facility] [id number] [place] [facility] 2022-01-01 00:00:00 2022-01-01 00:00:00 Patient Secure Msg Wilbert Willoughby [facility] ELECTRICIAN SUPERVISOR [facility]ATION [facility] & CHILD [facility] 1..840.114 350.1.13.10 4.2.7.2.686 [id number] 107 [id number] [facility] 2021-12-31 00:00:00 2021-12-31 00:00:00 Telephone Jamie Wall [facility] ELECTRICIAN SUPERVISOR [facility] & CHILD [facility] 1.2.840.114 350.1.13.10 4.2.7.2.686 [id number] 107 [id number] [facility] 2021-12-31 00:00:00 2021-12-31 00:00:00 Telephone Wilbert Willoughby [facility] ELECTRICIAN SUPERVISOR [facility] & CHILD [facility] 1.2.840.114 350.1.13.10 4.2.7.2.686 [id number] 107 [id number] [facility] 2021-12-30 14:30:00 2021-12-30 16:19:20 [facility] ELECTRICIAN SUPERVISOR SUBSTATION [facility] CHILD [facility] 1.2.840.114 350.1.13.10 4.2.7.2.686 [id number] 107 [id number] [facility] 2021-12-30 14:30:00 2021-12-30 16:19:20 Outpatient JAMIE GAYTAN EMILY [facility] [id number] [facility] 2021-12-30 14:30:00 2021-12-30 14:30:00 Outpatient JAMIE GAYTAN EMILY [facility] [id number] [facility] 2021-12-18 09:45:00 2021-12-18 09:45:00 Outpatient WILBERT MUNGUIA [facility] [id number] [facility] 2021-12-03 13:00:00 2021-12-03 13:00:00 Outpatient WILBERT MUNGUIA [facility] [id number] [facility] 2021-12-02 00:00:00 2021-12-02 00:00:00 Patient Secure MsWilbert Eller [facility] ELECTRICIAN SUPERVISOR SUB[facility]ATION [facility] MATERNAL & CHILD [facility] 1..114 350.1.13.10 4.2.7.2.686 [id number] 107 [id number] [facility] 2021-12-02 00:00:00 2021-12-02 00:00:00 Telephone Myranda Willoughbylois Jaffe [facility] ELECTRICIAN SUPERVISOR SUBSTATION [facility] & CHILD [facility] 1.0.114 350.1.13.10 4.2.7.2.686 [id number] 107 [id number] [facility] 2021-12-01 13:30:00 2021-12-01 13:30:00 Outpatient R WILBERT WILLOUGHBY [facility] [id number] [facility] 2021-12-01 13:30:00 2021-12-01 13:30:00 Outpatient R WILLOUGHBYWILBERT [facility] [id number] [facility] 2021-11-13 00:00:00 2021-11-13 00:00:00 Telephone Myranda Willoughbylois [facility] ELECTRICIAN SUPERVISOR [facility]ATION [facility] & CHILD [facility] 1..114 350.1.13.10 4.2.7.2.686 [id number] 107 [id number] [facility] 2021-11-11 14:45:00 2021-11-11 16:08:19 Outpatient R WILLOUGHBYWILBERT [facility] [id number] [facility] 2021-11-11 14:45:00 2021-11-11 16:08:19 Office Visit Jonh Wilbert [facility] ELECTRICIAN SUPERVISOR SUB[facility] MATERNAL & CHILD [facility] 1..114 350.1.13.10 4.2.7.2.686 [id number] 107 [id number] [facility] 2021-11-11 00:00:00 2021-11-11 00:00:00 Orders Only Doctor Unassigned, [place] [facility] 1..114 350.1.13.10 4.2.7.2.686 [id number] [facility] 2021-04-07 00:00:00 2021-04-07 00:00:00 Patient Secure Wilbert Blanco [facility] ELECTRICIAN SUPERVISOR SUB[facility]ATION [facility] MATERNAL & CHILD [facility] 1.2.840.114 350.1.13.10 4.2.7.2.686 [id number] [facility] 2021-03-21 14:45:00 2021-03-21 14:45:00 Outpatient R PETE OWENS [facility] [id number] [facility] 2021-03-20 00:00:00 2021-03-20 00:00:00 Telephone Pete Owens [facility] ELECTRICIAN SUPERVISOR [facility] & CHILD [facility] 1.2840.114 350.1.13.10 4.2.7.2.686 [id number] 107 [id number] [facility] 2021-03-19 14:45:00 2021-03-19 14:45:00 Outpatient JAMIE HOPPER [facility] [id number] [facility] 2021-03-18 15:15:00 2021-03-18 15:15:00 Outpatient JAMIE HOPPER [facility] [id number] [facility] 2021-03-16 22:39:00 2021-03-17 01:20:00 Emergency Sam [facility] 1.2840.114 350.1.13.10 4.2.7.2.686 [id number] [facility] 2021-02-20 00:00:00 2021-02-20 00:00:00 Telephone Lara Atkinson [facility] 1.2840.114 350.1.13.10 4.2.7.2.686 [id number] [facility] 2021-02-19 02:37:00 2021-02-19 03:44:00 Emergency Paige [facility] 1.2.840.114 350.1.13.10 4.2.7.2.686 [id number] [facility] 2020-09-10 00:00:00 2020-09-10 00:00:00 Patient Outreach Juan Marshall [facility] 1.2.840.114 350.1.13.10 4.2.7.2.686 [id number] [facility] 2020-09-10 00:00:00 2020-09-10 00:00:00 Patient Outreach Juan Marshall [facility] 1.2.840.114 350.1.13.10 4.2.7.2.686 [id number] 2020-08-27 10:30:00 2020-08-27 10:30:00 Outpatient R WILBERT WILLOUGHBY [facility] [id number] [facility] 2020-08-26 13:30:00 2020-08-26 13:30:00 Outpatient R [facility] [id number] [facility] 2020-07-11 13:15:00 2020-07-11 13:15:00 Outpatient R WILBERT WILLOUGHBY [facility] [id number] [facility] 2020-06-27 15:21:42 2020-06-27 16:19:38 Office Visit Wilbert Willoughby [facility] ELECTRICIAN SUPERVISOR SUBSTATION [facility] MATERNAL & CHILD [facility] 1.2.840.114 350.1.13.10 4.2.7.2.686 [id number] [facility] 2020-06-27 15:21:42 2020-06-27 16:19:38 Office Visit Wilbert Willoughby [facility] ELECTRICIAN SUPERVISOR [facility]ILD [facility] 1.2.840.114 350.1.13.10 4.2.7.2.686 [id number] 2020-06-27 15:30:00 2020-06-27 15:30:00 Outpatient MYRANDA MUNGUIAANGELMarlene [facility] [id number] [facility] 2020-06-05 15:15:00 2020-06-05 15:15:00 Outpatient MYRANDA MUNGUIAANGELaMrlene [facility] [id number] [facility] 2020-03-29 00:00:00 2020-03-29 00:00:00 Patient Secure Msg Doctor Unassigned, [place] [facility] 1.2.840.114 350.1.13.10 4.2.7.2.686 [id number] [facility] 2020-03-27 19:22:00 2020-03-28 00:39:00 Emergency Sam [facility] 1.2.840.114 350.1.13.10 4.2.7.2.686 [id number] [facility] 2019-12-05 01:22:11 2019-12-05 03:48:00 Emergency Radha [facility] 1.2.840.114 350.1.13.10 4.2.7.2.686 [id number] [facility] 2019-12-05 01:22:11 2019-12-05 03:48:00 Emergency Genet HAWKINS RADHA [facility] ERT [id number] [facility] 2019-11-15 19:21:57 2019-11-16 00:00:00 Emergency [facility] 1.2.840.114 350.1.13.10 4.2.7.2.686 [id number] [facility] 2019-11-15 19:21:57 2019-11-16 00:00:00 Emergency X aSm CHASE [facility] ERT [id number] [facility] 2019-10-19 04:35:17 2019-10-19 06:17:00 Emergency Luisa Ma [facility] 1.2.840.114 350.1.13.10 4.2.7.2.686 [id number] [facility] 2019-10-19 04:35:17 2019-10-19 06:17:00 Emergency X LUISA MA [facility] ERT [id number] [facility] 2019-08-31 03:53:07 2019-08-31 05:03:00 Emergency Jessica [facility] 1.2.840.114 350.1.13.10 4.2.7.2.686 [id number] [facility] 2019-08-31 03:53:07 2019-08-31 05:03:00 Emergency X JESSICA BOB [facility] ERT [id number] [facility] 2019-06-09 16:17:18 2019-06-09 19:21:00 Emergency MANAN GARCIA III [facility] ERT [id number] [facility] 2019-01-29 15:09:14 2019-01-29 18:22:00 Emergency Manan P[facility]rez [facility] 1.2.840.114 350.1.13.10 4.2.7.2.686 [id number] [facility] 2019-01-29 00:00:00 2019-01-29 00:00:00 Orders Only Doctor Unassigned, [place] [facility] 1.2.840.114 350.1.13.10 4.2.7.2.686 [id number] [facility] Results Test Description Test Time Test Comments Results Result Co mments Source [facility] CampusPOWV SARS-COV-2 ANTIGEN (BINAX NOW)2024-02-17 21:42:00* Test Item Value Reference Range Interpretation Comme nts POCT SARS-COV-2 ANTIGEN (test code = 32103-5) Not Detected Not Detected, See Comment On board controls acceptable with C Line (test code = 3574) Yes Lab Interpretation (test code = 57737-5) Normal [facility] [id number] 14:17:00* Test Item Value Reference Range Interpretation Comme nts POCT PREG (test code = 1605) Negative On board controls acceptable with C Line (test code = 3574) Yes POCT PREG LOT # (test code = 3575) POCT PREG TEST DATE ( test code = 3576) [facility] CampusREFERRAL- REQUEST/[id number] 18:24:24 Ordered by an unspecified provider.[facility] CampusREFERRAL- REQUEST/[id number] 18:24:24Ordered by an unspecified provider.[facility] CampusREFERRAL- REQUEST/[id number] 18:24:24Ordered by an unspecified provider.[facility] Test 2023-08-20 19:56:00* Test Item Value Reference Range Interpretation Comme nts POCT PREG (test code = 1605) Negative On board controls acceptable with C Line (test code = 3574) Yes POCT PREG LOT # (test code = 3575) POCT PREG TEST DATE ( test code = 3576) [facility] [id number] 19:56:00* Test Item Value Reference Range Interpretation Comme nts POCT PREG (test code = 1605) Negative On board controls acceptable with C Line (test code = 3574) Yes POCT PREG LOT # (test code = 3575) POCT PREG TEST DATE ( test code = 3576) [facility] BETA HCG [id number] 22:07:50* Test Item Value Reference Range Interpretation Comme nts BETA HCG (test code = 3009118994) 7.37 See_Comment [Automated Sample[employer] ge] The system which generated this result transmitted reference range: Non- female and male patients: <5 mIU/mL. The reference range was not used to interpret this result as normal/abnormal. MARCELINO (test code = MARCELINO) Gestational Age ?Range (mIU/mL) 1-10 ?Weeks ?[id number] Weeks ?53602-22182297-05 Weeks ?7854-52232306-94 Weeks ?8227-594705 Biotin has been reported to cause a negative bias, interpret results relative to patient's use of biotin. [facility]. METABOLIC PANEL (13775)2023-08-13 21:50:11* Test Item Value Reference Range Interpretation Comme nts NA (test code = 3262758301) 139 mmol/L 135-145 K (test code = 2306067052) 4.0 mmol/L 3.5-5.0 CL (test code = 7840539444) 108 mmol/L 98-108 CO2 TOTAL (test code = 5306645692) 25 mmol/L 23-31 AGAP (test code = 1893468092) 6 2-16 BUN (test code = 2499234252) 11 mg/dL 7-23 GLUCOSE (test code = 7921190097) 93 mg/dL 70-110 CREATININE (test code = 2160-0) 0.61 mg/dL 0.50-1.04 TOTAL BILI (test code = 1665637981) 0.5 mg/dL 0.1-1.1 CALCIUM (test code = 6296600804) 8.7 mg/dL 8.6-10.6 T PROTEIN (test code = 4311385444) 8.1 g/dL 6.3-8.2 ALBUMIN (test code = 3634210823) 4.1 g/dL 3.5-5.0 ALK PHOS (test code = 9128005151) 71 U/L 34-122 ALTv (test code = 1742-6) 18 U/L 5-35 AST(SGOT) (test code = 8858700950) 28 U/L 13-40 eGFR (test code = 77799-0) 124.3 mL/min/1.73m2 CKD-EPI eGFR (20 21). Assuming creatinine has been stable day-to-day for at least three months, the eGFR indicates Category G1 (>= 90 mL/min/1.73 m2) [facility] WITH [id number] 21:38:26* Test Item Value Reference Range Interpretation [...] g/dL 31.6-35.1 L RDW-SD (test code = 27825-8) 49.0 fL 39.0-49.9 RDW-CV (test code = 788-0) 16.7 % 12.0-15.5 H PLT (test code = 777-3) 416 166-358 H MPV (test code = 43845-6) 10.0 fL 9.5-12.9 NRBC/100 WBC (test code = 3478560486) 0.0 0.0-10.0 NRBC x10^3 (test code = 1430464647) See_Comment [Automated messa ge] The system which generated this result transmitted reference range: 10*3/?L. The reference range was not used to interpret this result as normal/abnormal. GRAN MAT (NEUT) % (test code = 770-8) 62.4 % IMM GRAN % (test code = 5730572270) 0.20 % LYMPH % (test code = 736-9) 27.3 % MONO % (test code = 5905-5) 8.1 % EOS % (test code = 713-8) 1.1 % BASO % (test code = 706-2) 0.9 % GRAN MAT x10^3(ANC) (test code = 2832400805) 3.54 10*3/uL 1.88-7.09 IMM GRAN x10^3 (test code = 3675153082) 0.00-0.06 LYMPH x10^3 (test code = 731-0) 1.55 10*3/uL 1.32-3.29 MONO x10^3 (test code = 742-7) 0.46 10*3/uL 0.33-0.92 EOS x10^3 (test code = 711-2) 0.06 10*3/uL 0.03-0.39 BASO x10^3 (test code = 704-7) 0.05 10*3/uL 0.01-0.07 Lab Interpretation (test code = 27243-6) Abnormal [facility] CampusType and Screen - ONCE [id number] 21:33:00 * Test Item Value Reference Range Interpretation Comme nts ABO & RH (test code = 20) A Positive IAT (test code = 1185) [facility] [id number] 21:39:00* Test Item Value Reference Range Interpretation [...] U APPEAR (test code = 3267) .. [facility] CampusPOCT URINALYSIS W SPECIFIC [id number] 21:39:00* Test Item Value Reference Range Interpretation [...] code = 3259) Trace Negative - Negat dbera POCT U GLU (test code = 3256) [...] U APPEAR (test code = 3267) .. [facility] CampusSURGICAL PATHOLOGY [id number] 20:00:41* Test Item Value Reference Range Interpretation Comme nts Case Report (test code = 8511645353) Surgical Pathology ?Case: [id number] ? Authorizing Provider: ?Bandar Baca MD ? Collected: ? 04/26/2023 0816 ?Ordering Location: ? ? [facility] OR ? Received: ?04/26/2023 1015 ? Department ? Pathologist: ? Olga Hearn MD ?Specimen: ? ?ENDOMETRIUM, ENDOMETRIAL CURETTINGS ? Final Diagnosis (test code = 0075010784) a1xxeSExTKEle6naGAXvgJ FuZzEwMzNcZnRuYmpcdWMx LXpjydJiWGgenNugLXH2OX UqZX3siWxxdNn5pNrrQBKo smX3eFOwTIfzk7qlPVE8z1 olvrupTIZjLHtoPx3gtKNt lDgjMzFqZFIoYRf5xX05QU QyxR0vmZNdTPo9KVLfuRXm vwGdGuNjDRGnuSUnmCO1LY TqWE6vfiyhFWnqIZkcTSYb ssO7GLSddXZdH4TmXCBtCT 9nyqowJOS3DGgtLYGyLNZ4 DdClJAXro2Rebid3DaRjtY FyZFxwbGFpblxmczIwXHBh ciBBLiBFTkRPTUVUUklVTS nxY7LNBDKHVGwTTvliWAGr WWIxARRcQOHLL5oRRtVXEM PLBxQmTR3ZW39UKTLYYD7m cGFyXHBhciBIYXNhbmFpbi OICvD9wXecYwWfqdWGGXBx biwgTUQgIFxwYXJcZnMyMi QWzRtjVC6lBIPfutCwoods TUQgIDExLzcvMjAyMyAgMj owMCBQTVxwYXJccGFyZFxm ryNnNRFilaadGHY3i8dziH YxXHNzdGVjZjIyMDAwXGFu k9qjEKJlhSEcAnDyYkMsAc QbXrvrqIRqWNNnRtUdx0mt j536jVFtq1xvGWEaFmL9cY KzTQIiaFpdumv0eRkpJhOf GDGtx7ahueIoUpZbHWBvAQ IoFACydAJvJ933DQWdIWhs w0sek3YtOCBcgLAuz7D1PX AMEGfiEcTrZ310f9ret6eq wxJxlET2NTBjHWK8KAruuw LdxyY1AUuikUTeYiL3FHae npCoSSzmxsZrhyHySqp0NN DlK296PVD9jUtle4msTRJ1 TZBgIJPeWeacJp4odCYkQ2 01GQQbZDMDTRGjzOo7XTAk cwVcdnBhgCAZd560H369g9 qyTYGntwRigHtWozicr6vj I369NYOqvYJteeFlKxWrSS NrbXDspXE8EJBnPE0shvhv YDznAYesWYQwqkX6ESOiuO GeP2CePLAsOJ0parlfDLR8 VMxtUQMkUKN7JgYsGNSmx5 Cqcdj5YiCptj6rnr26JLE0 h4CrhVteDDY3BDU2RoMpHb 4uwHSsIKKsFS9wEyUllATk CIGswd65aSglNVhfftSdkZ 4jJkQrNSCrcJNwPWOuVI7d hMTtQQSkaA1mfilmYQPnKo IsembaNWIzvXrtvcAzVf4o qJzzAZP9RAkrO7nvuZ6tSj L7HQigW0hmvJ8aAJj3MUyq iNU7ZPFziF5lKB6ykbgtx3 fdBKtdRGjdNGExsqI3wnB5 HYEyrBAkG1InhE7fDMVhOR 3zwziyk0ajLHC4ASuuEJRt MWU5LnSpVGWit7Uhxks2Dl Rvo1JabIEhQNxjT99kl258 WIHmbgFuX8hmlBWgapbxzM QpnlzjZVmpiuB2BVVwYFIe YWluXGYxXGZzMjBcbGFuZz EwMzNcaGljaFxmMVxkYmNo JRUnTSinD6wrNnMqE7LkXK KlSoAxaOXkBRmsjSF1LIFw XTYkh93eyNb7SXJuvgcwn6 BvPUHwpZHbmOYdcB5czuQs m6hdFCPyRUYqHEAxH9OyDK V4hLYxJUDomAHsrSQ2QB0r fqCjVU1iGXZcFdfkuuEevS XszvKyGWOeALrbn2ocNJ1l ABVfmPegnU5rjBX3IQEqh6 jgqSNwcWMmo7qwj2ChmrXh ZShzKSBtYXkgYXBwZWFyIG 1cEKNzaBBdvqHjl0B8Rnls tRDqtegbNzsiskE8WOrnwj raRDFgGYgnH8miZhQeCVQw hHldYhhzu8DwUMVzIPCmJd hccGFyfX0= Clinical Information (test code = 2984629982) Abnormal uterine bleeding [N93.9] Gross Description (test code = 1940122452) a1cbyLMqKFZzhEWNSOL6AS HfSR4ngLzedBp5zSkyYYSr kzC7tRSgISfkl7otMVI8s7 fldxYLTyhdCFRpLE8zOLon EMYeVU1zUkGgYUCoJrRzIV BhcGVydzEyMjQwXHBhcGVy pRN8YOFvVW2sdbcvYHmkCS naWXEjzrH6UHJvsVTrQ3Wr NSWrSX9compdCTF0DEQKFn avHm6ntKMgrInbDqDyJwQl YXJzZXQwXGZuaWwgQXJpYW o2oB8NZtheCZY0OCKFTgzs HmzzxMhuh9LezWCpTJYgLE xcaWQgNTEwMDAgXFxkYiBP BaCzUzZ3LYrnAqJ7MyC6AX s2ROBFTTHsRyl3PEB3AcI7 CUw7UKYqYI2sMLodaDKsDU kwGlbxHPxcA451MKsgIAEw N5SmU2CvEPvcToTsNXkhCW VsGACxDYvpLIKuP6ZUGNYz YBv5JpTmHOKxNDn1GOrzF7 DXWCIqKWD5POG8QMM0JhD8 RVu5KSQJQi7jOKt0XHV8JB O9BGT5MTh8ViVcWNYvWaUp HOFkRRNpFNpxjSMoDD6jwC njPEVgCV2DJUGyVImiPQPj PnLiQ1VVE0hRNV9qONrryK JjaFxmczIyXHBhciANClxw IWNjFA9YWYBnILtqJSv7ye RaKTLtJkKeGLSeI92tm5WR j9IgFF1JAWg6wkNgltAMCa NwZWNpbWVuIEEgaXMgcmVj YOv4WPFsHvSna8utfGXuBP oaKRR0iPRzHCZeQIZbQSTh LJ31J5ZbwvIcMTyxUEcbkw FoBuAeSXAixtRpqEF2soty bCBjdXJldHRpbmdzIiBhbm DoR55gi2cgrYOxp0MtZEB2 nPz2MGRgUAGwLWZnL1qbd3 z6iTTkV3olBQvdxUJim1Rm sCLjPZIkqdinePTqOXx2aP IwFLXhKuReyOesg4AzVZBu KQajLS85xvAsHH94GIajEF 2pJMugVW8vTPSgTYvzIFTw F0CsN8E0LBtvGXCeVPEvtR SfxN5pwpKwuoRnbBe3ETBr HIM5cEJfkCrcOGIsQptubN G3CLWvGkKnxsAdd5JlaLl3 qSUrDAywZBYraQ4ioZ0mLV EuXHBhciANClxwYXIgDQpc o9OmZXwuwLamORDqGaXjEV mTNJM3KQAdyjShjRemLGEI QSAoQVNDUCkNClxlcGljTm RmsKZkCwD3CCWobJNzOBD4 PO0cyVnpBAZfF2DuG0Rfje P0LMQfbmEYCrkqJAQjPD5S fQ== Disclaimer (test code = 0686939502) w9nelSCxGNImt6wiLKNxwA FuZzEwMzNcZnRuYmpcdWMx TGfggeLxPGwhl0DgJ1MrMg AwMFxhbnNpXGRlZmxhbmcx QCZhNEB1flCeSAKuAVvcSI HfMHueIt9ybDAlgHoyUdSp VZAfd0cksrDOZHxlQbIwU8 36BOWrQSonw2asi3LaIUQh jYZug1K4WDZJeqhxnTp4yO weA97ej0Y5GrltC8prTTBc OWTgG1LwGI7eINSzIqh5YV Z9CZI6OIUlECLuE6ChPR8p VANyrWFwLYl7z8vjaTsxEQ WcVHQ8x1weWChjasSjET0o xl7cdEf9a2mdfzWiNIMeGP YhmNJEEWZaE1PcaYdmBt7h zDa6tIdtOmzeGVY5Gmc5GF 0swt58aas0rKcfQNGvhwmd ZyW4RIprJGBbgawgVGg7XN bhZZDnhEY6LSMjgYHlL5Nh XMMiWU6lwug5IML7VXvxFD JkWqF4AFNdaAPjLDVhyXhk LJcas052DES8AlDcXR9uI0 Vzf9N9nS4rsVGfPBPrdZId MiEjUBMabl0ogAGwPBide9 IuVPV7yuB6vSOvtQRlNXEu SA10Nrhbc9OwCmtuq2KdC0 7kuQZ7WBlwx2arOX3pYjX2 xzSyJTivo1yvmS5wTyP5FK tqSF7eAF4eDTEgfZ6rqxvw XHBnYnJkcmhlYWRccGdicm ZhVk6twHvpFXH7KUkbF0ya yW5tVfM5DPczN7qhfZ5hZA l0ECcnvWK5WJUmcH9gOW9i otgqd1wcQMpdTWyuRPXddf L9eqG7OPIbiAHbP3ZsyW5i EYPaWB7knfeoe2uoWEZ2HK qzDHCrQOE8PyJeOXGek6Mc hny5YsSjo8ZfoIOxKXhkG4 5jj642JMQlchKxQ2ijaLEo wjfwuIBcnrwpIXwfogN2DT ArqbCbq7OuQJIrOJE5WUfj GWblnYQoXBUpdDbjd3upB3 RscGFyXHBsYWluXGYxXGZz MjBcbGFuZzEwMzNcaGljaF yiHRdtPrEcZADoZCiiD8bd JvMoE5DfJJCmIlDcsMRbS7 ggVGhpcyByZXBvcnQgbWF5 DJzsQ4y7ONGpboBzrWj4wy OnYsIkRTRkUJO9ZLdseHDn GLOip8EiyxxxvZWkOi3umS AkVMXqcQ4tGJDmKFDrCNrk ET0vpWh9QNUTsAKayAUlSv GHHUDbDU82rzFtDBOLsmet l6S5YHkpGXQfn2LgeOKqB7 wbd1UbEVXxg78iEV1et4C4 q6qtOCF0OX2at0McJOXrbK ArkXVfOLZtg1Mwsvhju1Sp BTZcqpFyz2FvGEJcjzWieJ OcEZEpniLgfr4qeiYnBINw MHNmY5TpkavziUecazQdDD Myzo0fyfTqLUX3TRNQGEHk GEQdb2PpvJ5aiXARQRC5jB Xwxj8iliBYtKPfOQDgsz42 DEQdRC0jK4dkZZAvZNKgda ElmABhm6SoZLZojXU8qURg SF5CPrYRf17aGNKkPLCXrx PyTWAdsBnguIS0yrU2mS8c IChGREEpLlx+IFRoZSBGRE DtAL2dmhYlq2BukqSusFac OOOdxSEwi3DqxNAob5SovA siz6YhoTHhtIVhON8tGBKr clxwYXIgVVRNQiBMYWJvcm O0n1MbJRXiZHYaJOF2fPlf xdw2IONznG0fWLZdH4prow epSGbdMNWhh8AtlD7ydJSQ nAHzo9MmdUQxlYGPmAUvGN 0uakHyOElNHUcCSTB2afKi HSOtd0SvRCtbJ9zyJ42naU fvtJs5pGX6BRK6pY5aKhh+ IFxwYXJccGFyIEFwcHJvcH GmZCUitGubygFaU4RlfgVq tE1jjPBwkbOkTQ0zOA1aL0 Q7cHTqBIEproAcw2gtSQrs dmUgYmVlbiByZXZpZXdlZC Ybj6FhCNbrSKL8BEpnzkTa bmNsdWRpbmcgSCZFLCBTcG WbdMPaZTO7MSiylgTmouGp GX2wbD9ycKyiwC3hwLAchG F7zoeiUHDwSRJhnQprZCFk AY3byMfmjX8zXzCbDeGcOV yfBK3lYIKoF8xziGWnVCCt HVGrP4kmNuTpjA8dfIurFK xjZjJcZnMyMFxwYXJccGFy XHBsYWluXGYxXGZzMjBcbG FuZzEwMzNcaGljaFxmMVxk MqOeWHWsNAyoD4ptQdLzX8 VgIBRxQzJfnKGdB8wwHQub GGP8XBYgQH6fpQSgZI34qZ Bsz1yjLWuliQzqxk0iH71u qBClOVkroCytAOXax97ub1 RcGOWnhlPdik5kWWLdoyL0 rW6mSZLvxOypSBAwgDDqHV Cgk2EkJEubqGSjwdKgPGvs JCIlYMWidROvhhP4irCahu XedrZtMCDrsNirTEFho1Xm PFPoAMxdw6Oshr4wcEKjIO PawoWJjLjdrKUdiM5qI9Ku IKPcKUWcyr2bDEKdtO7gRB bgs4LmkaomJACwBSHyXBDx wxIfpo6gAORlzCBOKQ1ZIG ssoNQdb6IkdlJeS2iZGHR3 NUQwNjYwMjgxKSBleGNlcH CbCDVkuv47JLQxsL6hlExt KEPcmA1yxN3uoIlsjH2dWm ZxMfTbIGmnDB4gRNFnX7wz qGFkRGMiCFJkJ0fcQsFgeA 9jaFxmMVxjZjJcZnMyMFxw YXJ9fQ== Embedded Images (test code = 2134005075) [facility] CampusPOCT [id number] 11:43:00* Test Item Value Reference Range Interpretation Comme [facility] POCT PREG (test code = 1605) Negative On board controls acceptable with C Line (test code = 3574) Yes POCT PREG LOT # (test code = 3575) POCT PREG TEST DATE ( test code = 3576) Lab Interpretation (test cod e = 33449-6) Normal [facility] CampusG6PD SCREENING [id number] 17:39:58* Test Item Value Reference Range Interpretation Comme [facility] G6PD SCREEN (test code = 1831581638) Normal Normal MARCELINO (test code = MARCELINO) Normal G6PD activity. ?No evidence of G6PD deficiency. Lab Interpretation (test code = 33657-7) Normal [facility] CampusQUANTIFERON TB ASSAY [id number] 18:27:02* Test Item Value Reference Range Interpretation Comme [facility] QFT Gold Plus Result (test code = 35222-2) Negative Negative MARCELINO (test code = MARCELINO) [...] /publications/guidelin es/default.htm. Lab Interpretation (test code = 37454-1) Normal [facility] CampusTHIOPURINE METHYLTRANSFERASE, [id number] 03:08:32* Test Item Value Reference Range Interpretation Comme nts THIOPURINE METHYLTRANSFERASE, RBC (test code = 93556-5) 27.1 U/mL 24.0-44.0 INTERPRETIVE INF ORMATION: Thiopurine [...] developed and its performance characteristics determined by [facility]. It has not been cleared or approved by the [place] Food and Drug Administration. This test was performed in a CLIA certified laboratory and is intended for clinical purposes.Performed By: [address] [id number] Director: Alex Adrian MD, PhDCLIA Number: [id number] [facility] CampusQUANTIFERON-TB [id number] 21:43:02* Test Item Value Reference Range Interpretation Comme nts Extra Tube (test code = 7047703895) Received in Lab [facility] CampusLUPUS ANTICOAGULANT REFLEXIVE [id number] 20:21:52* Test Item Value Reference Range Interpretation Comments Prothrombin Time (test code = 5902-2) 13.0 See_Comment [Automated message] The system which generated this result transmitted reference range: 12.0 - 15.5 sec. The reference range was not used to interpret this result as normal/abnormal. PTT-LA Screen (PTT-D) (test code = 84274-3) 43 See_Comment [Automated messa ge] The system which [...] normal/abnormal. PTT-D Heparin Neutralized (test code = 94744-9) Not Applicable See_Comment [Automated messa ge] The [...] Platelet Neutralization (PTT-D, Confirm) (test code = 90262-9) Not Applicable Negative dRVVT Screen (test code = 6303-2) 31 See_Comment L [Automated messa ge] The system which generated this result transmitted reference range: 33 - 44 sec. The reference range was not used to interpret this result as normal/abnormal. dRVVT 1:1 Mix (test code = 51029-9) Not Applicable See_Comment [Automated messa ge] The system which generated this result transmitted reference range: 33 - 44 sec. The reference range was not used to interpret this result as normal/abnormal. dRVVT Confirmation (test code = 89051-6) Not Applicable Negative ratio Hexagonal Phospholipid Neutral Reflex (test code = 40326-0) Not Applicable Negative Lupus Anticoagulant Interpretation (test code = 72704-3) See Note Lupus anticoagul ant not detected.The [...] testing has not already been performed.Performed By: [facility] [place] [id number] Director: Alex Adrian MD, PhDCLIA Number: [id number] Lab Interpretation (test code = 42958-1) Abnormal [facility] CampusAshyieEILY-DLCEDZUYZHYNCIXXJ8394-92-22 15:04:39* Test Item Value Reference Range Interpretation Comme nts Anti-Ribonucleoprotein (test code = 6251512293) Negative Negative MARCELINO (test code = MARCELINO) Positive - Antibod y detected.Negative - No antibody detected. Lab Interpretation (test code = 82350-9) Normal [facility] CampusANTI-DUMONT(SM)2023-04-11 15:04:39* Test Item Value Reference Range Interpretation Comme nts Anti-Dumont (test code = 5675647544) Negative Negative MARCELINO (test code = MARCELINO) Positive - Antibod y detected.Negative - No antibody detected. Lab Interpretation (test code = 89061-3) Normal [facility]-SSA(RO)2023-04-11 15:04:39* Test Item Value Reference Range Interpretation Comme nts ANTI-SSA(RO) (test code = 0325339737) Negative Negative MARCELINO (test code = MARCELINO) Positive - Antibod y detected.Negative - No antibody detected. Lab Interpretation (test code = 25143-2) Normal [facility] CampusANTI-SSB(LA)2023-04-11 15:04:39* Test Item Value Reference Range Interpretation Comme nts Anti-SSB(LA) (test code = 9710940486) Negative Negative MARCELINO (test code = MARCELINO) Positive - Antibod y detected.Negative - No antibody detected. Lab Interpretation (test code = 83573-4) Normal [facility] CampusANTI-DOUBLE STRANDED [id number] 15:04:38* Test Item Value Reference Range Interpretation Comme nts ANTI-DSDNA (test code = 4260553046) See_Comment [Automated message] The system which generated this result transmitted reference range: 0.0 - 4.0 IU/mL. The reference range was not used to interpret this result as normal/abnormal. MARCELINO (test code = MARCELINO) Negative ? ?< or = 4 IU/mLPositive ? ? ?> or = 10 IU/mLIndetermin ate ?5-9 IU/mL Lab Interpretation (test code = 24306-5) Normal [facility] CampusVITAMIN D, [id number] 21:32:37* Test Item Value Reference Range Interpretation Comme nts VIT D 25OH (test code = 21728-8) 17 ng/mL 25-80 L MARCELINO (test code = MARCELINO) Deficiency: <20 ng/mLInsufficiency: 20-24 ng/mLOptimal: 25-80 ng/mL Lab Interpretation (test code = 13189-2) Abnormal [facility] CampusC3 MMJBLKQVBU4872-14-41 19:42:07* Test Item Value Reference Range Interpretation Comme nts C3 (test code = 0116044331) 113 mg/dL 86-184 Lab Interpretation (test cod e = 19783-3) Normal [facility] CampusC4 PXKZPYRXDV6718-72-80 19:42:07* Test Item Value Reference Range Interpretation Comme nts C4 (test code = 3323469111) 40 mg/dL 20-59 Lab Interpretation (test cod e = 38926-1) Normal [facility] CampusC-REACTIVE KCSFSAJ3456-77-22 19:42:07* Test Item Value Reference Range Interpretation Comme nts CRP (test code = 5491889407) 1.4 mg/dL <=0.8 H Lab Interpretation (test cod e = 12628-4) Abnormal [facility] CampusIRON OQKUY8165-83-01 18:18:12* Test Item Value Reference Range Interpretation Comme nts IRON (test code = 7179863528) 35 ug/dL 50-160 L TIBC (test code = 6397126005) 425 ug/dL 250-410 H % FE SAT (test code = 4192402758) 8 % 20-50 L Lab Interpretation (test cod e = 65097-3) Abnormal [facility]CREATINE [id number] 18:08:29* Test Item Value Reference Range Interpretation Comme nts CK (test code = 8707332477) 31 U/L 33-194 L Lab Interpretation (test cod e = 85916-5) [facility] 03:18:50* Test Item Value Reference Range Interpretation Comme nts NA (test code = 9853521152) 139 mmol/L 135-145 K (test code = 4867111829) 4.0 mmol/L 3.5-5.0 CL (test code = 7703031598) 103 mmol/L 98-108 CO2 TOTAL (test code = 3687783292) 25 mmol/L 23-31 AGAP (test code = 8994245627) 11 2-16 BUN (test code = 4773797863) 12 mg/dL 7-23 GLUCOSE (test code = 7989114447) 93 mg/dL 70-110 CREATININE (test code = 3794435943) 0.62 mg/dL 0.50-1.04 TOTAL BILI (test code = 9047969637) 0.4 mg/dL 0.1-1.1 CALCIUM (test code = 5619892368) 9.3 mg/dL 8.6-10.6 T PROTEIN (test code = 1619431785) 8.1 g/dL 6.3-8.2 ALBUMIN (test code = 7622303682) 4.4 g/dL 3.5-5.0 ALK PHOS (test code = 2516473031) 89 U/L 34-122 ALTv (test code = 1742-6) 19 U/L 5-35 AST(SGOT) (test code = 5091965649) 34 U/L 13-40 eGFR (test code = 3751218350) 113.8 mL/min/1.73m2 MARCELINO (test code = MARCELINO) [...] or urine or abnormalities in imaging tests). [facility]LIPASE2023-[facility] 03:18:49* Test Item Value Reference Range Interpretation Comme nts LIPASE (test code = 9801119169) 132 U/L 0-220 Lab Interpretation (test cod e = 98765-6) Normal [facility] WITH [id number] 02:53:28* Test Item Value Reference Range Interpretation Comme nts WBC (test code = 6690-2) 8.11 See_Comment [Automated [employer]] The system which generated this result transmitted reference range: 4.30 - 11.10 10*3/?L. The reference range was not used to interpret this result as normal/abnormal. RBC (test code = 789-8) 3.54 See_Comment L [Automated [employer]] The system which generated this result [...] 31.6 g/dL 31.6-35.1 RDW-SD (test code = 19238-0) 42.7 fL 39.0-49.9 RDW-CV (test code = 788-0) 13.4 % 12.0-15.5 PLT (test code = 777-3) 424 See_Comment H [Automated [employer]] The system which generated this result transmitted reference range: 166 - 358 10*3/?L. The reference range was not used to interpret this result as normal/abnormal. MPV (test code = 74002-8) 9.9 fL 9.5-12.9 IPF % (test code = 6499743995) 2.3 % 1.3-7.7 Platelet count measured by fluorescence method. NRBC/100 WBC (test code = 3816329990) 0.0 See_Comment [Automated [employer] ssage] The system which generated this result transmitted reference range: 0.0 - 10.0 /100 WBCs. The reference range was not used to interpret this result as normal/abnormal. NRBC x10^3 (test code = 5353010089) See_Comment [Automated [employer]] The system which generated this result transmitted reference range: 10*3/?L. The reference range was not used to interpret this result as normal/abnormal. GRAN MAT (NEUT) % (test code = 770-8) 59.8 % IMM GRAN % (test code = 0837903034) 0.60 % LYMPH % (test code = 736-9) 29.3 % MONO % (test code = 5905-5) 8.5 % EOS % (test code = 713-8) 1.2 % BASO % (test code = 706-2) 0.6 % GRAN MAT x10^3(ANC) (test code = 4499687040) 4.84 10*3/uL 1.88-7.09 IMM GRAN x10^3 (test code = 2520113390) 0.05 10*3/uL 0.00-0.06 LYMPH x10^3 (test code = 731-0) 2.38 10*3/uL 1.32-3.29 MONO x10^3 (test code = 742-7) 0.69 10*3/uL 0.33-0.92 EOS x10^3 (test code = 711-2) 0.10 10*3/uL 0.03-0.39 BASO x10^3 (test code = 704-7) 0.05 10*3/uL 0.01-0.07 Lab Interpretation (test code = 19124-3) Abnormal [facility] [id number] 02:03:00* Test Item Value Reference Range Interpretation Comme nts POCT PREG (test code = 1605) Negative On board controls acceptable with C Line (test code = 3574) Yes POCT PREG LOT # (test code = 3575) [id number] POCT PREG TEST DATE ( test code = 357) 03/26/2024 Lab Interpretation (test cod e = 36241-4) Normal [facility] [id number] 17:54:00* Test Item Value Reference Range Interpretation Comme nts POCT PREG (test code = 1605) Positive On board controls acceptable with C Line (test code = 3574) Yes POCT PREG LOT # (test code = 3575) POCT PREG TEST DATE ( test code = 3576) Lab Interpretation (test cod e = 69923-8) Abnormal [facility] WITHOUT [id number] 04:28:06* Test Item Value Reference Range Interpretation [...] result as normal/abnormal. MPV (test code = 90629-6) 10.9 fL 9.5-12.9 RDW-CV (test code = 788-0) 13.1 % 12.0-15.5 RDW-SD (test code = 10673-5) 42.8 fL 39.0-49.9 NRBC x10^3 (test code = 0341070092) See_Comment [Automated messa ge] The system which generated this result transmitted reference range: 10*3/?L. The reference range was not used to interpret this result as normal/abnormal. NRBC/100 WBC (test code = 2445869905) 0.0 See_Comment [Automated messa ge] The system which generated this result transmitted reference range: 0.0 - 10.0 /100 WBCs. The reference range was not used to interpret this result as normal/abnormal. IPF % (test code = 5872504747) Lab Interpretation (test code = 20492-7) Abnormal [facility] WITHOUT [id number] 04:28:06* Test Item Value Reference Range Interpretation [...] result as normal/abnormal. MPV (test code = 80215-9) 10.9 fL 9.5-12.9 RDW-CV (test code = 788-0) 13.1 % 12.0-15.5 RDW-SD (test code = 36695-1) 42.8 fL 39.0-49.9 NRBC x10^3 (test code = 2554451632) See_Comment [Automated [employer]] The system which generated this result transmitted reference range: 10*3/?L. The reference range was not used to interpret this result as normal/abnormal. NRBC/100 WBC (test code = 8983595533) 0.0 See_Comment [Automated [employer]] The system which generated this result transmitted reference range: 0.0 - 10.0 /100 WBCs. The reference range was not used to interpret this result as normal/abnormal. IPF % (test code = 9954941294) Lab Interpretation (test code = 69260-7) Abnormal [facility] BETA HCG [id number] 19:25:18* Test Item Value Reference Range Interpretation Comme nts BETA HCG (test code = 5797497603) 84195.00 See_Comment [Automated [employer]] The system which generated this result transmitted reference range: Non- female and male patients: <5 mIU/mL. The reference range was not used to interpret this result as normal/abnormal. MARCELINO (test code = MARCELINO) Gestational Age ?Range (mIU/mL) 1-10 ?Weeks ?29-39512904-57 Weeks ?63109-77955523-22 Weeks ?0659-24563260-52 Weeks ?1531-034385 Biotin has been reported to cause a negative bias, interpret results relative to patient[facility]. [facility] [id number] 19:25:18* Test Item Value Reference Range Interpretation Comme nts BETA HCG (test code = 1006038284) 22871.00 See_Comment [Automated [employer]] The system which generated this result transmitted reference range: Non- female and male patients: <5 mIU/mL. The reference range was not used to interpret this result as normal/abnormal. MARCELINO (test code = MARCELINO) Gestational Age ?Range (mIU/mL) 1-10 ?Weeks ?44-71443214-24 Weeks ?57424-25692044-31 Weeks ?2349-11792034-24 Weeks ?1531-902804 Biotin has been reported to cause a negative bias, interpret results relative to patient's use of biotin. [facility]. METABOLIC PANEL ([id number])2023-01-08 16:46:39* Test Item Value Reference Range Interpretation Comme nts NA (test code = 1688266166) 136 mmol/L 135-145 K (test code = 8840095054) 3.6 mmol/L 3.5-5.0 CL (test code = 5160252837) 104 mmol/L 98-108 CO2 TOTAL (test code = 0384917104) 23 mmol/L 23-31 AGAP (test code = 1483586264) 9 2-16 BUN (test code = 5595094374) 6 mg/dL 7-23 L GLUCOSE (test code = 0566022786) 97 mg/dL 70-110 CREATININE (test code = 9440871498) 0.49 mg/dL 0.50-1.04 L TOTAL BILI (test code = 4545289961) 0.5 mg/dL 0.1-1.1 CALCIUM (test code = 2597202691) 8.7 mg/dL 8.6-10.6 T PROTEIN (test code = 2229563969) 7.5 g/dL 6.3-8.2 ALBUMIN (test code = 6033880158) 3.9 g/dL 3.5-5.0 ALK PHOS (test code = 7291070474) 61 U/L 34-122 ALTv (test code = 1742-6) 18 U/L 5-35 AST(SGOT) (test code = 6127273918) 23 U/L 13-40 eGFR (test code = 2438974264) 149.3 mL/min/1.73m2 MARCELINO (test code = MARCELINO) [...] imaging tests). Lab Interpretation (test code = 81894-4) Abnormal [facility]. METABOLIC PANEL (20512)2023-01-08 16:46:39* Test Item Value Reference Range Interpretation Comme nts NA (test code = 4696161574) 136 mmol/L 135-145 K (test code = 2715373860) 3.6 mmol/L 3.5-5.0 CL (test code = 5908455304) 104 mmol/L 98-108 CO2 TOTAL (test code = 6188271871) 23 mmol/L 23-31 AGAP (test code = 5217004702) 9 2-16 BUN (test code = 1305689374) 6 mg/dL 7-23 L GLUCOSE (test code = 1670829080) 97 mg/dL 70-110 CREATININE (test code = 1683840501) 0.49 mg/dL 0.50-1.04 L TOTAL BILI (test code = 4325113517) 0.5 mg/dL 0.1-1.1 CALCIUM (test code = 8897362964) 8.7 mg/dL 8.6-10.6 T PROTEIN (test code = 8973983098) 7.5 g/dL 6.3-8.2 ALBUMIN (test code = 2465130846) 3.9 g/dL 3.5-5.0 ALK PHOS (test code = 0559740978) 61 U/L 34-122 ALTv (test code = 1742-6) 18 U/L 5-35 AST(SGOT) (test code = 7224320768) 23 U/L 13-40 eGFR (test code = 6659642220) 149.3 mL/min/1.73m2 MARCELINO (test code = MARCELINO) [...] imaging tests). Lab Interpretation (test code = 77533-3) [facility] 16:46:19* Test Item Value Reference Range Interpretation Comme nts LIPASE (test code = 9383229463) 81 U/L 0-220 Lab Interpretation (test cod e = 97071-4) Normal [facility] 16:46:19* Test Item Value Reference Range Interpretation Comme nts LIPASE (test code = 6742020527) 81 U/L 0-220 Lab Interpretation (test cod e = 03023-5) Normal [facility] WITH [id number] 16:37:55* Test Item Value Reference Range Interpretation Comme nts WBC (test code = 6690-2) 6.04 See_Comment [Automated [employer]] The system which generated this result transmitted reference range: 4.30 - 11.10 10*3/?L. The reference range was not used to interpret this result as normal/abnormal. RBC (test code = 789-8) 3.84 See_Comment L [Automated [employer]] The system which generated this result [...] 33.0 g/dL 31.6-35.1 RDW-SD (test code = 26264-5) 40.9 fL 39.0-49.9 RDW-CV (test code = 788-0) 13.1 % 12.0-15.5 PLT (test code = 777-3) 273 See_Comment [Automated [employer]] The system which generated this result transmitted reference range: 166 - 358 10*3/?L. The reference range was not used to interpret this result as normal/abnormal. MPV (test code = 59205-0) 10.2 fL 9.5-12.9 NRBC/100 WBC (test code = 5242162897) 0.0 See_Comment [Automated [employer] ssage] The system which generated this result transmitted reference range: 0.0 - 10.0 /100 WBCs. The reference range was not used to interpret this result as normal/abnormal. NRBC x10^3 (test code = 5746421059) See_Comment [Automated [employer]] The system which generated this result transmitted reference range: 10*3/?L. The reference range was not used to interpret this result as normal/abnormal. GRAN MAT (NEUT) % (test code = 770-8) 79.1 % IMM GRAN % (test code = 7314401627) 0.30 % LYMPH % (test code = 736-9) 10.3 % MONO % (test code = 5905-5) 8.6 % EOS % (test code = 713-8) 1.2 % BASO % (test code = 706-2) 0.5 % GRAN MAT x10^3(ANC) (test code = 1102543656) 4.78 10*3/uL 1.88-7.09 IMM GRAN x10^3 (test code = 7832935795) 0.00-0.06 LYMPH x10^3 (test code = 731-0) 0.62 10*3/uL 1.32-3.29 L MONO x10^3 (test code = 742-7) 0.52 10*3/uL 0.33-0.92 EOS x10^3 (test code = 711-2) 0.07 10*3/uL 0.03-0.39 BASO x10^3 (test code = 704-7) 0.03 10*3/uL 0.01-0.07 Lab Interpretation (test code = 90027-2) Abnormal [facility] WITH [id number] 16:37:55* Test Item Value Reference Range Interpretation [...] 33.0 g/dL 31.6-35.1 RDW-SD (test code = 91812-3) 40.9 fL 39.0-49.9 RDW-CV (test code = 788-0) 13.1 % 12.0-15.5 PLT (test code = 777-3) 273 See_Comment [Automated messa ge] The system which generated this result transmitted reference range: 166 - 358 10*3/?L. The reference range was not used to interpret this result as normal/abnormal. MPV (test code = 74634-4) 10.2 fL 9.5-12.9 NRBC/100 WBC (test code = 8218196953) 0.0 See_Comment [Automated me ssage] The system which generated this result transmitted reference range: 0.0 - 10.0 /100 WBCs. The reference range was not used to interpret this result as normal/abnormal. NRBC x10^3 (test code = 3863454211) See_Comment [Automated messa ge] The system which generated this result transmitted reference range: 10*3/?L. The reference range was not used to interpret this result as normal/abnormal. GRAN MAT (NEUT) % (test code = 770-8) 79.1 % IMM GRAN % (test code = 1325016054) 0.30 % LYMPH % (test code = 736-9) 10.3 % MONO % (test code = 5905-5) 8.6 % EOS % (test code = 713-8) 1.2 % BASO % (test code = 706-2) 0.5 % GRAN MAT x10^3(ANC) (test code = 6402870294) 4.78 10*3/uL 1.88-7.09 IMM GRAN x10^3 (test code = 9313633375) 0.00-0.06 LYMPH x10^3 (test code = 731-0) 0.62 10*3/uL 1.32-3.29 L MONO x10^3 (test code = 742-7) 0.52 10*3/uL 0.33-0.92 EOS x10^3 (test code = 711-2) 0.07 10*3/uL 0.03-0.39 BASO x10^3 (test code = 704-7) 0.03 10*3/uL 0.01-0.07 Lab Interpretation (test code = 64273-5) Abnormal [facility]. METABOLIC PANEL (95135)2023-01-02 04:39:51* Test Item Value Reference Range Interpretation Comme nts NA (test code = 6523426484) 136 mmol/L 135-145 K (test code = 8195649995) 5.0 mmol/L 3.5-5.0 CL (test code = 5558508276) 101 mmol/L 98-108 CO2 TOTAL (test code = 6753754859) 25 mmol/L 23-31 AGAP (test code = 8082580975) 10 2-16 BUN (test code = 7641649454) 9 mg/dL 7-23 GLUCOSE (test code = 4654835233) 81 mg/dL 70-110 CREATININE (test code = 5985505504) 0.46 mg/dL 0.50-1.04 L TOTAL BILI (test code = 1434912748) 0.7 mg/dL 0.1-1.1 CALCIUM (test code = 3949228184) 9.6 mg/dL 8.6-10.6 T PROTEIN (test code = 7108524223) 8.4 g/dL 6.3-8.2 H ALBUMIN (test code = 0370522876) 4.5 g/dL 3.5-5.0 ALK PHOS (test code = 7714304540) 61 U/L 34-122 ALTv (test code = 1742-6) 19 U/L 5-35 AST(SGOT) (test code = 1271372735) 32 U/L 13-40 eGFR (test code = 9278982760) 160.6 mL/min/1.73m2 MARCELINO (test code = MARCELINO) [...] imaging tests). Lab Interpretation (test code = 29574-1) Abnormal [facility] WITH [id number] 04:26:51* Test Item Value Reference Range Interpretation Comme nts WBC (test code = 6690-2) 8.93 See_Comment [Automated [employer]] The system which generated this result transmitted reference range: 4.30 - 11.10 10*3/?L. The reference range was not used to interpret this result as normal/abnormal. RBC (test code = 789-8) 4.16 See_Comment [Automated [employer]] The system which generated this result transmitted [...] 32.4 g/dL 31.6-35.1 RDW-SD (test code = 43564-8) 42.9 fL 39.0-49.9 RDW-CV (test code = 788-0) 13.2 % 12.0-15.5 PLT (test code = 777-3) 389 See_Comment H [Automated [employer]] The system which generated this result transmitted reference range: 166 - 358 10*3/?L. The reference range was not used to interpret this result as normal/abnormal. MPV (test code = 61151-8) 10.1 fL 9.5-12.9 NRBC/100 WBC (test code = 9370363216) 0.0 See_Comment [Automated me ssage] The system which generated this result transmitted reference range: 0.0 - 10.0 /100 WBCs. The reference range was not used to interpret this result as normal/abnormal. NRBC x10^3 (test code = 5779889479) See_Comment [Automated messa ge] The system which generated this result transmitted reference range: 10*3/?L. The reference range was not used to interpret this result as normal/abnormal. GRAN MAT (NEUT) % (test code = 770-8) 62.8 % IMM GRAN % (test code = 6715235717) 0.30 % LYMPH % (test code = 736-9) 27.4 % MONO % (test code = 5905-5) 7.2 % EOS % (test code = 713-8) 1.7 % BASO % (test code = 706-2) 0.6 % GRAN MAT x10^3(ANC) (test code = 8968859102) 5.61 10*3/uL 1.88-7.09 IMM GRAN x10^3 (test code = 5013797153) 0.03 10*3/uL 0.00-0.06 LYMPH x10^3 (test code = 731-0) 2.45 10*3/uL 1.32-3.29 MONO x10^3 (test code = 742-7) 0.64 10*3/uL 0.33-0.92 EOS x10^3 (test code = 711-2) 0.15 10*3/uL 0.03-0.39 BASO x10^3 (test code = 704-7) 0.05 10*3/uL 0.01-0.07 Lab Interpretation (test code = 23859-2) [facility]normal [facility] - ONCE [id number] 04:23:00* Test Item Value Reference Range Interpretation Comme nts ABO & RH (test code = 20) A Positive IAT (test code = 1185) Negative [facility] W SPECIFIC [id number] 16:06:00* Test Item Value Reference Range Interpretation [...] U APPEAR (test code = 3267) . [facility] URINALYSIS W/O SPECIFIC [id number] 15:38:00* Test Item Value Reference Range Interpretation [...] = 3257) NEG Negative - Negati ve [facility] URINALYSIS W/O SPECIFIC [id number] 15:38:00* Test Item Value Reference Range Interpretation [...] = 3257) NEG Negative - Negati ve [facility] [id number] 15:37:00* Test Item Value Reference Range Interpretation Comme nts POCT PREG (test code = 1605) Positive On board controls acceptable with C Line (test code = 3574) Yes POCT PREG LOT # (test code = 3575) POCT PREG TEST DATE ( test code = 3576) [facility] [id number] 15:37:00* Test Item Value Reference Range Interpretation Comme nts POCT PREG (test code = 1605) Positive On board controls acceptable with C Line (test code = 3574) Yes POCT PREG LOT # (test code = 3575) POCT PREG TEST DATE ( test code = 3576) [facility] [id number] 17:56:00* Test Item Value Reference Range Interpretation Comme nts POCT PREG (test code = 1605) Positive On board controls acceptable with C Line (test code = 3574) Yes POCT PREG LOT # (test code = 3575) POCT PREG TEST DATE ( test code = 3576) [facility] [id number] 17:56:00* Test Item Value Reference Range Interpretation Comme nts POCT PREG (test code = 1605) Positive On board controls acceptable with C Line (test code = 3574) Yes POCT PREG LOT # (test code = 3575) POCT PREG TEST DATE ( test code = 3576) [facility] URINALYSIS W/O SPECIFIC [id number] 16:24:00* Test Item Value Reference Range Interpretation [...] = 3257) Trace Negative - Negati ve [facility] URINALYSIS W/O SPECIFIC [id number] 16:24:00* Test Item Value Reference Range Interpretation [...] = 3257) Trace Negative - Negati ve [facility] [id number] 20:16:00* Test Item Value Reference Range Interpretation Comme nts POCT PREG (test code = 1605) Negative On board controls acceptable with C Line (test code = 3574) Yes POCT PREG LOT # (test code = 3575) POCT PREG TEST DATE ( test code = 3576) [facility] (QUANTITATIVE)2022-09-27 00:50:12* Test Item Value Reference Range Interpretation Comme nts BETA HCG (test code = 2374716520) 2138.50 See_Comment [Automated messa ge] The system which generated this result transmitted reference range: Non- female and male patients: <5 mIU/mL. The reference range was not used to interpret this result as normal/abnormal. MARCELINO (test code = MARCELINO) Gestational Age ?Range (mIU/mL) 1-10 ?Weeks ?13-30827519-97 Weeks ?65505-87858368-94 Weeks ?0348-79139025-54 Weeks ?7471-687629 Biotin has been reported to cause a negative bias, interpret results relative to patient's use of biotin. [facility] (QUANTITATIVE)2022-09-27 00:50:12* Test Item Value Reference Range Interpretation Comme nts BETA HCG (test code = 7899689182) 2138.50 See_Comment [Automated [employer]] The system which generated this result transmitted reference range: Non- female and male patients: <5 mIU/mL. The reference range was not used to interpret this result as normal/abnormal. MARCELINO (test code = MARCELINO) Gestational Age ?Range (mIU/mL) 1-10 ?Weeks ?82-99545152-08 Weeks ?17255-34442125-23 Weeks ?2328-08759406-18 Weeks ?7948-933785 Biotin has been reported to cause a negative bias, interpret results relative to patient's use of biotin. [facility]. METABOLIC PANEL (69897)2022-09-27 00:25:05* Test Item Value Reference Range Interpretation Comme nts NA (test code = 7715583439) 137 mmol/L 135-145 K (test code = 6206798892) 4.3 mmol/L 3.5-5.0 CL (test code = 8428017020) 103 mmol/L 98-108 CO2 TOTAL (test code = 5780885463) 24 mmol/L 23-31 AGAP (test code = 9220015839) 10 2-16 BUN (test code = 5020648362) 9 mg/dL 7-23 GLUCOSE (test code = 0653064454) 88 mg/dL 70-110 CREATININE (test code = 5564167381) 0.54 mg/dL 0.50-1.04 TOTAL BILI (test code = 4452483374) 0.4 mg/dL 0.1-1.1 CALCIUM (test code = 9126657899) 9.4 mg/dL 8.6-10.6 T PROTEIN (test code = 0268288691) 7.9 g/dL 6.3-8.2 ALBUMIN (test code = 6797274312) 4.5 g/dL 3.5-5.0 ALK PHOS (test code = 0437890103) 77 U/L 34-122 ALTv (test code = 1742-6) 18 U/L 5-35 AST(SGOT) (test code = 2879691283) 20 U/L 13-40 eGFR (test code = 7634833923) 133.5 mL/min/1.73m2 MARCELINO (test code = MARCELINO) [...] or urine or abnormalities in imaging tests). [facility]. METABOLIC PANEL (68726)2022-09-27 00:25:05* Test Item Value Reference Range Interpretation Comme nts NA (test code = 5281708118) 137 mmol/L 135-145 K (test code = 1115665383) 4.3 mmol/L 3.5-5.0 CL (test code = 7140215219) 103 mmol/L 98-108 CO2 TOTAL (test code = 9621288791) 24 mmol/L 23-31 AGAP (test code = 8131856602) 10 2-16 BUN (test code = 5175208984) 9 mg/dL 7-23 GLUCOSE (test code = 1054202944) 88 mg/dL 70-110 CREATININE (test code = 9302360843) 0.54 mg/dL 0.50-1.04 TOTAL BILI (test code = 6725381730) 0.4 mg/dL 0.1-1.1 CALCIUM (test code = 3235295921) 9.4 mg/dL 8.6-10.6 T PROTEIN (test code = 9117702651) 7.9 g/dL 6.3-8.2 ALBUMIN (test code = 8949775402) 4.5 g/dL 3.5-5.0 ALK PHOS (test code = 3442487668) 77 U/L 34-122 ALTv (test code = 1742-6) 18 U/L 5-35 AST(SGOT) (test code = 3470887785) 20 U/L 13-40 eGFR (test code = 6698016437) 133.5 mL/min/1.73m2 MARCELINO (test code = MARCELINO) [...] or urine or abnormalities in imaging tests). [facility]PROTHR[facility] TIME / [id number] 00:16:48* Test Item Value Reference Range Interpretation Comme [facility] PROTIME PATIENT (test code = 5964-2) 11.7 See_Comment [...] the indications. Lab Interpretation (test code = 39340-1) Abnormal [facility] / [id number] 00:16:48* Test Item Value Reference Range Interpretation Comme [facility] PROTIME PATIENT (test code = 5964-2) 11.7 See_Comment [...] the indications. Lab Interpretation (test code = 99077-9) [facility]normal [facility] WITH [id number] 00:09:05* Test Item Value Reference Range Interpretation Comme [facility] WBC (test code = 6690-2) 9.64 See_Comment [...] 32.5 g/dL 31.6-35.1 RDW-SD (test code = 32704-9) 42.0 fL 39.0-49.9 RDW-CV (test code = 788-0) 13.3 % 12.0-15.5 PLT (test code = 777-3) 364 See_Comment H [Automated messa ge] The system which generated this result transmitted reference range: 166 - 358 10*3/?L. The reference range was not used to interpret this result as normal/abnormal. MPV (test code = 78624-8) 10.0 fL 9.5-12.9 NRBC/100 WBC (test code = 5611220557) 0.0 See_Comment [Automated [employer] ssage] The system which generated this result transmitted reference range: 0.0 - 10.0 /100 WBCs. The reference range was not used to interpret this result as normal/abnormal. NRBC x10^3 (test code = 5205439236) See_Comment [Automated [employer]] The system which generated this result transmitted reference range: 10*3/?L. The reference range was not used to interpret this result as normal/abnormal. GRAN MAT (NEUT) % (test code = 770-8) 72.5 % IMM GRAN % (test code = 1066655612) 0.30 % LYMPH % (test code = 736-9) 19.0 % MONO % (test code = 5905-5) 6.6 % EOS % (test code = 713-8) 1.2 % BASO % (test code = 706-2) 0.4 % GRAN MAT x10^3(ANC) (test code = 6451247341) 6.98 10*3/uL 1.88-7.09 IMM GRAN x10^3 (test code = 0940137406) 0.03 10*3/uL 0.00-0.06 LYMPH x10^3 (test code = 731-0) 1.83 10*3/uL 1.32-3.29 MONO x10^3 (test code = 742-7) 0.64 10*3/uL 0.33-0.92 EOS x10^3 (test code = 711-2) 0.12 10*3/uL 0.03-0.39 BASO x10^3 (test code = 704-7) 0.04 10*3/uL 0.01-0.07 Lab Interpretation (test code = 03844-3) Abnormal [facility] WITH [id number] 00:09:05* Test Item Value Reference Range Interpretation [...] 32.5 g/dL 31.6-35.1 RDW-SD (test code = 50898-9) 42.0 fL 39.0-49.9 RDW-CV (test code = 788-0) 13.3 % 12.0-15.5 PLT (test code = 777-3) 364 See_Comment H [Automated messa ge] The system which generated this result transmitted reference range: 166 - 358 10*3/?L. The reference range was not used to interpret this result as normal/abnormal. MPV (test code = 85585-5) 10.0 fL 9.5-12.9 NRBC/100 WBC (test code = 4810713046) 0.0 See_Comment [Automated me ssage] The system which generated this result transmitted reference range: 0.0 - 10.0 /100 WBCs. The reference range was not used to interpret this result as normal/abnormal. NRBC x10^3 (test code = 5425702002) See_Comment [Automated messa ge] The system which generated this result transmitted reference range: 10*3/?L. The reference range was not used to interpret this result as normal/abnormal. GRAN MAT (NEUT) % (test code = 770-8) 72.5 % IMM GRAN % (test code = 9036709872) 0.30 % LYMPH % (test code = 736-9) 19.0 % MONO % (test code = 5905-5) 6.6 % EOS % (test code = 713-8) 1.2 % BASO % (test code = 706-2) 0.4 % GRAN MAT x10^3(ANC) (test code = 3782232157) 6.98 10*3/uL 1.88-7.09 IMM GRAN x10^3 (test code = 8481176955) 0.03 10*3/uL 0.00-0.06 LYMPH x10^3 (test code = 731-0) 1.83 10*3/uL 1.32-3.29 MONO x10^3 (test code = 742-7) 0.64 10*3/uL 0.33-0.92 EOS x10^3 (test code = 711-2) 0.12 10*3/uL 0.03-0.39 BASO x10^3 (test code = 704-7) 0.04 10*3/uL 0.01-0.07 Lab Interpretation (test code = 54896-8) Abnormal [facility] [id number] 04:43:00* Test Item Value Reference Range Interpretation Comme nts POCT PREG (test code = 1605) positive On board controls acceptable with C Line (test code = 3574) positive POCT PREG LOT # (test code = 3575) [id number] POCT PREG TEST DATE ( test code = 3576) 07/21/2023 Lab Interpretation (test cod e = 97721-3) Normal [facility] URINALYSIS W SPECIFIC [id number] 21:19:00* Test Item Value Reference Range Interpretation [...] POCT U APPEAR (test code = 3267) [facility] URINALYSIS W SPECIFIC [id number] 21:19:00* Test Item Value Reference Range Interpretation [...] POCT U APPEAR (test code = 3267) [facility] [id number] 21:40:00* Test Item Value Reference Range Interpretation Comme nts POCT PREG (test code = 1605) Positive On board controls acceptable with C Line (test code = 3574) Yes POCT PREG LOT # (test code = 3575) POCT PREG TEST DATE ( test code = 3576) [facility] URINALYSIS W/O SPECIFIC [id number] 21:34:00* Test Item Value Reference Range Interpretation [...] = 3257) negative Negative - Negati ve [facility] [id number] 08:22:00* Test Item Value Reference Range Interpretation Comme nts POCT PREG (test code = 1605) neg On board controls acceptable with C Line (test code = 3574) yes POCT PREG LOT # (test code = 3575) [id number] POCT PREG TEST DATE ( test code = 3576) 09/19/2023 Lab Interpretation (test cod e = 80881-4) Normal [facility] [id number] 06:28:56 * Test Item Value Reference Range Interpretation Comme nts TSH (test code = [id number]) See_Comment Biotin has been reported to cause a negative bias, interpret results relative to patient's use of biotin. [Automated message] The system which generated this result transmitted reference range: 0.45 - 4.70 mIU/L. The reference range was not used to interpret this result as normal/abnormal. Lab Interpretation (test code = 18274-6) Normal [facility] [id number] 06:28:56 * Test Item Value Reference Range Interpretation Comme nts TSH (test code = [id number]) See_Comment Biotin has been reported to cause a negative bias, interpret results relative to patient's use of biotin. [Automated message] The system which generated this result transmitted reference range: 0.45 - 4.70 mIU/L. The reference range was not used to interpret this result as normal/abnormal. Lab Interpretation (test code = 76237-6) Normal [facility] [id number] 19:31:00* Test Item Value Reference Range Interpretation Comme nts POCT PREG (test code = 1605) Negative On board controls acceptable with C Line (test code = 3574) Yes POCT PREG LOT # (test code = 3575) POCT PREG TEST DATE ( test code = 3576) [facility] [id number] 19:31:00* Test Item Value Reference Range Interpretation Comme nts POCT PREG (test code = 1605) Negative On board controls acceptable with C Line (test code = 3574) Yes POCT PREG LOT # (test code = 3575) POCT PREG TEST DATE ( test code = 3576) [facility] Consult Notes Date/Time Note Provider Source 2023-01-08 18:58:39 Associated Order(s): 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 History Eduar Raya is a 27 year old female , with a hx of 4 previous c-sections and cholecystectomy and D&Cs presents to ER with worsening lower abdominal pain. She is scheduled for a D&C for SAB with possible molar on 01/11 She denies vaginal bleeding, Chest pain or SOB Work up in [place] showed normal TSH and CXR Most recent scan on 01/04 showed GS, possible blood clot and snow timur like appearance in the BRYCE. Hc,846.00 (01/01)--> 36,031.00(01/08) A positive Sexual History: Social History Substance and Sexual Activity Sexual Activity Yes Partners: Male control/protection: None Comment: Last intercourse: 11/19/2022 Current Medications: Current Facility-Administered Medications Medication Dose Route Frequency Last [...] in the morning. 90 tablet 2 Home Medications: (Not in a hospital admission) Allergies: Iodine History: Past Medical History: Diagnosis Date Anemia 2017 ongoing, [...] N/A 09/24/2016 Surgeon: Joe Martino MD; Location: [facility] Labor and Delivery OR Location SECTION N/A 03/08/2018 Surgeon: Gloria Atkins; Location: Labor and Delivery - [place] CHOLECYSTECTOMY 2021 DILATION AND CURETTAGE (SHX) 2010 Both (Dr Martino) DILATION AND CURETTAGE (SHX) N/A 09/27/2022 Surgeon: Gillian Reno MD; Location: [facility] TONSILLECTOMY WITH ADENOIDECTOMY Age 2 Social History Socioeconomic History Marital status: Number of children: 2 Years of education: 11th Occupational History 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 Drug use: No Sexual activity: Yes Partners: Male control/protection: None Comment: Last intercourse: 11/19/2022 Other Topics Concern Seat Belt Yes Comment: Sometimes Social History Narrative Denies domestic or physical violence within the home Advent Preference: None Patient lives with her children, feels safe at home. Denies cats. Surgical History: Past Surgical History: Procedure Laterality Date SECTION Dr Aragon SECTION N/A 09/24/2016 Surgeon: Joe Martino MD; Location: [facility] Labor and Delivery OR Location SECTION N/A 03/08/2018 Surgeon: Gloria Atkins; Location: Labor and Delivery - [place] CHOLECYSTECTOMY 2021 DILATION AND CURETTAGE (SHX) 2010 Both (Dr Martino) DILATION AND CURETTAGE (SHX) N/A 09/27/2022 Surgeon: Gillian Reno MD; Location: [facility] TONSILLECTOMY WITH ADENOIDECTOMY Age 2 OB History: [...] with 2 Miscarriages (Dr Aragon) REVIEW OF SYSTEMS General: negative Constitutional: negative Eyes: negative ENT/Mouth: negative Cardiovascular: negative Respiratory: negative Gastrointestinal:negative Genitourinary: negative Musculoskeletal: negative Skin/breast: negative Neurological: negative Psychiatric: negative Endocrine: negative Hemat/Lymph: negative Allergic/Immuno:none Physical Exam: BP 112/65 | Pulse 107 | Temp 36.7 ?C (98.1 ?F) (Oral) | Resp 18 | Ht 1.702 m (5' 7") | Wt 90.7 kg (200 lb) | LMP 10/26/2022 (Exact Date) | SpO2 100% | BMI 31.32 kg/m? Constitutional: alert, Respiratory: No labored breathing Cardiovascular: RRR Gastrointestinal: Abdomen soft, tender lower abdomen Neurological/Psychiatric: Alert and oriented times three, normal mood and affect Gynecologic: Deferred Labs: CBC WBC (10*3/?L) Date Value 01/08/2023 6.04 RBC (10*6/?L) Date Value 01/08/2023 3.84 (L) PLT (10*3/?L) Date Value 01/08/2023 273 HGB (g/dL) Date Value 01/08/2023 10.9 (L) HCT (%) Date Value 01/08/2023 33.0 (L) ALT(SGPT) (U/L) Date Value 05/27/2017 36 ALTv (U/L) Date Value 01/08/2023 18 AST(SGOT) (U/L) Date Value 01/08/2023 23 CREATININE (mg/dL) Date Value 01/08/2023 0.49 (L) No results found for: "LDHU" No results found for: "URICACID" PROTEIN (no units) Date Value 01/08/2023 Negative PH (no units) Date Value 01/08/2023 7.0 GLU U QUAL (no units) Date Value 01/08/2023 Normal KETONES (no units) Date Value 01/08/2023 Negative BILIRUBIN (no units) Date Value 01/08/2023 Negative No results found for: "UBLOOD" No results found for: "UUROBILIN" LEUK GABBY (no units) Date Value 01/08/2023 25/uL (A) NITRITE (no units) Date Value 01/08/2023 Negative SP GRAVITY (no units) Date Value 01/08/2023 1.015 No results found for: "T4" TSH (mIU/L) Date Value 01/04/2023 1.52 Assessment/Plan: dEuar Raya is a 27 year old female, with a failed but can't rule out molar presenting with abdominal pain Hcg is trending down Patient is stable Will proceed with D&C Patient last eat at 10am, will keep NPO and proceed 8 hours later as per anesthesia Procedure reviewed with patient and consent signed She already had postop appointment/beta clinic appointment in [place] on 01/18. Encouraged to keep the appointment Mariajose Ramsey MD T [facility] - [facility] History and Physical Notes Date/Time Note Provider Source 2023-01-08 19:29:53 Formatting of this n ote might be different from the original. See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 consult note for H&P Mariajose Ramsey MD T [facility] Notes Date/Time Note Provider Source 2024-03-01 11:15:00 Patient called from waiting area but not there yet. [facility] 2024-03-01 11:15:00 Images from the original note were not included. Venipuncture collection performed by clean technique on the left anticubitus. Total of 1 attempts were made. Slight pressure and a bandage/dressing were applied to the site(s). The patient experienced no complications. The following specimens were processed according to instructions and sent to [facility] laboratories per lab order on 03/01/24: LT BLUE 1 SST RED 1 LAV PPT DK GREEN (LiHep) DK GREEN (SodH) GUIDO DK BLUE (K2) DK BLUE (S) ACD Blood Culture NIPT/NTD Patient provided with stool (hat, 2 cups, 1 parapak, 1 fecal swab) collection kit and associated instructions for home collection. [facility] 2024-02-16 16:38:20 [facility] Specialty Pharmacy Monthly Clinical Refill Assessment Eduar Raya is a 28 year old female who is followed by the [facility] specialty pharmacy service for Other Quilipta . Am I speaking with the patient? Yes Have you missed any doses since the last fill? No Were any of the medications discontinued? No Have any changes been made to the medication, dose, or instructions on how to take it? No Have you started taking any new medications, herbals, or supplements? No Have you been diagnosed with any new medical conditions? No Are you experiencing any acute illness such as the common cold or flu-like symptoms? No Do you have any new allergies to medications or foods? No Have you been to the emergency room, hospital, or urgent care clinic since your last refill? No Have you experienced or do you have any concerns about side effects? No Do you have any concerns or questions about taking or administering the medication as prescribed? No Do you think the medication is working for you? Yes When is the next dose needed? The next dose is needed on 02/22/24 Would you prefer the medication be shipped to your address? No, the patient will pickup from [facility] Do you have any specific shipping directions? No The results of this survey will be reviewed by a specialty pharmacist and the medication order will be refilled. Thank you, Wade Morse CPhT [facility] Wade Morse CPhT [facility] 2024-01-21 13:38:17 Summary: [facility] Special[facility] Therapy Plan Eduar Raya is a 28 year old y/o /White female patient referred to the [facility] Special[facility] Pharm[facility] for management of Qulipta and appropriateness of therapy which is being used to treat the diagnosis of intractable chronic migraine with aura with status migrainosus. Eduar Raya is Na?e to therapy. I spoke to the patient and provided education and counseling on taking Qulipta tablets. The stage of Eduar Raya active disease is Other not controlled. The current specialty medication regimen is: Qulipta 60 mg tablet, take one tablet once daily in the morning will be started on: 01/25/2024 Concurrent medications used to treat intractable chronic migraine with aura with status migrainosus: Magnesium oxide 400 mg daily Ydidbzqaeo-mvehvawcdajyo-hz ffeine 1 tab Q4H PRN Previously trialed medications: Triptans While speaking with the patient, the Specialty Pharmacist has reviewed and updated the: medication list and allergy list Patient's most recent discharge from a hospital admission related to their specialty condition: The patient has not had a recent hospitalization related to their specialty condition. The [facility] Specialty Pharmacist has reviewed: The H&P, treatment recommendations, and all provider encounters relevant to the management of intractable chronic migraine with aura with status migrainosus: No contraindication to therapy Comorbid conditions: No contraindication to therapy Risk factors identified related to specialty medication therapy and condition: - avoid counseled on contraception Pertinent labs reviewed: CBC with differential, Complete metabolic panel, and Liver function tests (LFTs) After review, the prescribed medication is clinically appropriate. Specific requirements for the management of intractable chronic migraine with aura with status migrainosus: Recommended vaccinations: Influenza Goals of therapy based on therapy plan: Manage symptoms, Achieve remission, Improve QOL, and Regain ADL Patient self-reported goals of therapy: Manage symptoms, Achieve remission, Improve QOL, and Regain ADL Based on current therapy, patient progress towards established goals include: New to therapy PharmD provided education on Qulipta (atogepant): Education and counseling performed during this encounter: Purpose: Explained that the medication is to prevent chronic migraine Expected benefit: Explained that the patient will see improvement, maximum efficacy will take about 12 weeks. Storage: The medication will be stored at room temperature Administration: -: Avoid -Counseled on contraception Common side effects: Common: nausea, constipation, fatigue, drowsiness, decreased appetite/wt loss, increased LFTs; If it does not improve, then reach out to HCP. Infection Prevention: Stay updated with vaccinations Home Delivery Process: If the patient chooses to have the medications delivered home, someone needs to be at home to receive the packaged medication. [facility] will dispense and mail out Qulipta tablets on 01/24/2024, patient will start taking on 01/25/2024. The shipping address confirmed was [address] [place] [id number]. A comprehensive Welcome Packet is accessible to all patients via the [facility]'s website. For patients who may not have internet access, a printed copy is included with their medication shipment or provided during medication pick-up. Thank you, Azalea Dotson [facility] Azalea Dotson [facility] 2024-01-20 10:30:00 Images from the original note were not included. Venipuncture collection performed by clean technique on the left anticubitus. Total of 1 attempts were made. Slight pressure and a bandage/dressing were applied to the site(s). The patient experienced no complications. The following specimens were processed according to instructions and sent to [facility] laboratories per lab order on 01/20/2024 : LT BLUE SST 1 RED LAV 1 PPT DK GREEN (LiHep) DK GREEN (SodH) GUIDO DK BLUE (K2) DK BLUE (S) ACD Blood Culture NIPT/NTD Patient given stool kits with collection/drop off instructions. [facility] 2023-12-13 14:07:54 Sent patient a DailyDeal message regarding the lidocaine patches. Miroslava Raya Hope you are well. Your insurance did not approve covering lidocaine patches through the pharmacy. You can buy those over the counter if needed. Much thanks Maude Iraheta RN 12/13/2023 2:07 PM Maude Iraheta RN [facility] 2023-12-10 11:03:27 Images from the original note were not included. Printed out and put in Rhem folder Mynor Sanchez [facility] 2023-12-02 11:01:15 Radiology report from [facility] Printed and placed in providers box. Jodi Redding [facility] 2023-11-26 10:01:17 Images from the original note were not included. KENNY: [id number] [facility] 2023-11-24 15:00:18 PA requested and fax as below Your PA has been faxed to the plan as a paper copy. Please contact the plan directly if you haven't received a determination in a typical timeframe. You will be notified of the determination via fax. Maude Iraheta RN [facility] 2023-11-18 14:34:46 Pharmacy has been notified. Closing this encounter. Jen Plasencia RN [facility] 2023-11-18 10:31:35 8mg please not 4. [facility] 2023-11-17 14:23:18 Ms. Smith please review and advise. Did you want pt to have both doses of the ondansetron? Please let us know how you would like this handled. Thank you. Jen Plasencia RN [facility] 2023-11-16 14:13:31 Pharm requesting clarification on Rx, states they've received 2 identical orders for different strengths of the medication and needs to know which one to dispense. Please F/u ondansetron 4 mg disintegrating tablet ondansetron 8 mg disintegrating tablet [facility]/pharmacy #[id number] AT [facility] [place] [facility] 2023-11-16 12:00:00 Addended by: IRA FELIX on: 11/16/2023 01:04 PM Modules accepted: Orders [facility] 2023-10-27 00:55:00 Pt given printed and verbal discharge instructions regarding contusion of R knee Prescriptions provided Discussed Tylenol # 3 side affects and to avoid driving/operating machinery/or engaging in activities requiring alertness while taking. Pt verbalized understanding of instructions, pt awake alert oriented, resp reg unlabored, skin w/d, color appropriate for race, moves all ext well,pt encouraged to follow up with pcp or Ortho. Advised to seek medical attention for new/prolonged/worsening of symptoms. No adverse reaction to meds given in ER noted upon discharge Awake, alert oriented, resp reg unlabored, skin w/d, pt leaving via wheelchair, in no apparent distress. Samara Capone RN [facility] 2023-10-26 22:53:28 Patient arrived to ED via WC c/o right knee pain. Patient states slipping at work and having her legs go under her and heard a loud pop to the right knee. Patient able to move toes and has sensation to right foot. Sha Kim RN [facility] 2023-10-26 08:20:57 I called the patient to let her know as of this morning her prior authorization is still pending. Once she is approved or declined I will give her a call. Tara Mireles [facility] 2023-10-26 07:16:14 Please review and fill if appropriate. Thank you. Last Refilled: Disp Refills Start End JULIAN azelastine 137 mcg (0.1 %) nasal spray 30 mL 0 09/16/2023 -- No Sig: USE 1 SPRAY IN EACH NOSTRIL IN THE MORNING AND 1 SPRAY IN THE EVENING DIRECTED Sent to pharmacy as: azelastine 137 mcg (0.1 %) nasal spray aerosol (ASTELIN) Class: eRX Route: Nasal Order: [id number] Date/Time Signed: 09/16/2023 10:37 E-Prescribing Status: Receipt confirmed by pharmacy (09/16/2023 10:37 AM CDT) Notes: office visit 05/26/23 Assessment/Plan Acute URI (primary encounter diagnosis) Other non-recurrent acute nonsuppurative otitis media of right ear Plan: azelastine 137 mcg (0.1 %) nasal spray, amoxicillin-clavulanate (AUGMENTIN) 875-125 mg per tablet, brompheniramine-pseudoephed rine-DM (BROMFED DM) 2-30-10 mg/5 mL syrup Ongoing x 1 month. No improvement with conservative therapy. Has evidence of right AOM on exam. Will start on abx. Take full course as directed with food. Recent Visits Date Type Provider Dept 05/26/23 Office Visit Thais Marin PA [facility] 04/23/23 Office Visit Thais Marin PA [facility] 04/07/23 Office Visit Thais Marin PA [facility] 12/09/22 Office Visit Tawana Jean CNM [facility] 11/12/22 Office Visit Tawana Jean CNM [facility] Showing recent visits within past 540 days with a meds authorizing provider and meeting all other requirements Future Appointments No visits were found meeting these conditions. Showing future appointments within next 150 days with a meds authorizing provider and meeting all other requirements Cassie Victor RN [facility] 2023-10-25 17:12:09 Patient checking on status of Botox referral. Patient has appointment on 11/15 if we can get the referral please and do that day. Thank you! [facility] 2023-10-12 14:16:41 Follow up with Derm 10/20/[address] [facility] 2023-09-27 10:06:37 Refill request routed to provider for review: Requested Prescriptions Pending Prescriptions Disp Refills hydroxychloroquine (PLAQUENIL) 200 mg tablet 45 tablet 5 Sig: Take 1.5 tablets by mouth in the morning. Lrx 05/04/2023 #45+5 refill EGO 06/22/2023 Plan: Repeat labs once acute injury to left hand has resolved (falsely elevated CRP) Taper off plaquenil RTC 3-4 months to re eval after holding the Plaquenil (hydroxychloroquine), pt also requested RTC in 3-4 months Recent Visits Date Type Provider Dept 06/22/23 Office Visit Juan Reece DO [facility] 04/09/23 Office Visit Jose Craig MD Adult [facility]-Pcp Future Appointments Date Type Provider Dept 11/16/23 Appointment Juan Reece DO [facility] Nurse Visit on 08/20/2023 Component Date Value POCT PREG 08/20/2023 Negative On board controls accept* 08/20/2023 Yes POCT PREG 08/20/2023 Negative On board controls accept* 08/20/2023 Yes Admission on 08/13/2023, Discharged on 08/13/2023 Component Date Value WBC 08/13/2023 5.67 RBC 08/13/2023 4.56 HGB 08/13/2023 11.4 (L) HCT 08/13/2023 37.1 MCV 08/13/2023 81.4 MCH 08/13/2023 25.0 (L) MCHC 08/13/2023 30.7 (L) RDW-SD 08/13/2023 49.0 RDW-CV 08/13/2023 16.7 (H) PLT 08/13/2023 416 (H) MPV 08/13/2023 10.0 NRBC/100 WBC 08/13/2023 0.0 NRBC x10 3 08/13/2023 <0.01 GRAN MAT (NEUT) % 08/13/2023 62.4 IMM GRAN % 08/13/2023 0.20 LYMPH % 08/13/2023 27.3 MONO % 08/13/2023 8.1 EOS % 08/13/2023 1.1 BASO % 08/13/2023 0.9 GRAN MAT x10 3 (ANC) 08/13/2023 3.54 IMM GRAN x10 3 08/13/2023 <0.03 LYMPH x10 3 08/13/2023 1.55 MONO x10 3 08/13/2023 0.46 EOS x10 3 08/13/2023 0.06 BASO x10 3 08/13/2023 0.05 NA 08/13/2023 139 K 08/13/2023 4.0 CL 08/13/2023 108 CO2 TOTAL 08/13/2023 25 AGAP 08/13/2023 6 BUN 08/13/2023 11 GLUCOSE 08/13/2023 93 CREATININE 08/13/2023 0.61 TOTAL BILI 08/13/2023 0.5 CALCIUM 08/13/2023 8.7 T PROTEIN 08/13/2023 8.1 ALBUMIN 08/13/2023 4.1 ALK PHOS 08/13/2023 71 ALTv 08/13/2023 18 AST(SGOT) 08/13/2023 28 eGFR 08/13/2023 124.3 APPEARANCE 08/13/2023 Slightly Cloudy (A) COLOR 08/13/2023 Red (A) PH 08/13/2023 6.5 SP GRAVITY 08/13/2023 1.025 GLU U QUAL 08/13/2023 Negative BLOOD 08/13/2023 Large (A) KETONES 08/13/2023 Negative PROTEIN 08/13/2023 100 mg/dL (A) UROBILIN 08/13/2023 0.2 mg/dL BILIRUBIN 08/13/2023 Negative NITRITE 08/13/2023 Negative LEUK GABBY 08/13/2023 Negative RBC/HPF 08/13/2023 3 WBC/HPF 08/13/2023 1 BACTERIA 08/13/2023 Few (A) ABO & RH 08/13/2023 A Positive IAT 08/13/2023 Negative BETA HCG 08/13/2023 7.37 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 on 07/29/2023 Component Date Value WBC 07/29/2023 7.45 RBC 07/29/2023 4.51 HGB 07/29/2023 10.9 (L) HCT 07/29/2023 36.6 MCV 07/29/2023 81.2 MCH 07/29/2023 24.2 (L) MCHC 07/29/2023 29.8 (L) RDW-SD 07/29/2023 49.7 RDW-CV 07/29/2023 16.9 (H) PLT 07/29/2023 395 (H) MPV 07/29/2023 9.9 NRBC/100 WBC 07/29/2023 0.0 NRBC x10 3 07/29/2023 <0.01 GRAN MAT (NEUT) % 07/29/2023 67.3 IMM GRAN % 07/29/2023 0.10 LYMPH % 07/29/2023 23.1 MONO % 07/29/2023 8.2 EOS % 07/29/2023 0.9 BASO % 07/29/2023 0.4 GRAN MAT x10 3 (ANC) 07/29/2023 5.01 IMM GRAN x10 3 07/29/2023 <0.03 LYMPH x10 3 07/29/2023 1.72 MONO x10 3 07/29/2023 0.61 EOS x10 3 07/29/2023 0.07 BASO x10 3 07/29/2023 0.03 NA 07/29/2023 138 K 07/29/2023 3.8 CL 07/29/2023 102 CO2 TOTAL 07/29/2023 24 AGAP 07/29/2023 12 BUN 07/29/2023 12 GLUCOSE 07/29/2023 93 CREATININE 07/29/2023 0.58 TOTAL BILI 07/29/2023 0.3 CALCIUM 07/29/2023 9.2 T PROTEIN 07/29/2023 7.7 ALBUMIN 07/29/2023 4.4 ALK PHOS 07/29/2023 78 ALTv 07/29/2023 19 AST(SGOT) 07/29/2023 22 eGFR 07/29/2023 125.8 CRP 07/29/2023 1.0 (H) ESR 07/29/2023 40 (H) APPEARANCE 07/29/2023 Hazy (A) COLOR 07/29/2023 Yellow PH 07/29/2023 5.0 SP GRAVITY 07/29/2023 1.025 GLU U QUAL 07/29/2023 Normal BLOOD 07/29/2023 Negative KETONES 07/29/2023 Negative PROTEIN 07/29/2023 Negative UROBILIN 07/29/2023 Normal BILIRUBIN 07/29/2023 Negative NITRITE 07/29/2023 Negative LEUK GABBY 07/29/2023 25/uL (A) RBC/HPF 07/29/2023 <1 WBC/HPF 07/29/2023 2 BACTERIA 07/29/2023 Few (A) MUCOUS 07/29/2023 Slight (A) SQ EPITH 07/29/2023 8 (H) Anti-B2 Glycoprotein 1 I* 07/29/2023 2.9 Anti-B2 Glycoprotein 1 I* 07/29/2023 11.9 Anti-B2 Glycoprotein 1 I* 07/29/2023 2.8 Office Visit on 07/01/2023 Component Date Value URINE CULTURE 07/01/2023 >100,000 CFU/mL Escherichia coli (A) Trichomonas vaginalis 07/01/2023 Positive (A) Tere species 07/01/2023 Negative Tere glabrata 07/01/2023 Negative Bacterial Vaginosis 07/01/2023 Positive (A) POCT U SP GRAV 07/01/2023 . POCT PH U 07/01/2023 5 POCT U LEUK EST 07/01/2023 Trace POCT U NIT 07/01/2023 Neg POCT U PROT 07/01/2023 Trace POCT U GLU 07/01/2023 Nml POCT U KETONE 07/01/2023 None POCT U UROBILI 07/01/2023 . POCT U BILI 07/01/2023 . POCT U BLD 07/01/2023 Trace POCT U COLOR 07/01/2023 . POCT U APPEAR 07/01/2023 .. Admission on 04/26/2023, Discharged on 05/01/2023 Component Date Value POCT PREG 04/26/2023 Negative On board controls accept* 04/26/2023 Yes ABO & RH 04/26/2023 A POSITIVE IAT 04/26/2023 Negative WBC 04/26/2023 10.07 RBC 04/26/2023 4.12 HGB 04/26/2023 9.4 (L) HCT 04/26/2023 31.0 (L) MCV 04/26/2023 75.2 (L) MCH 04/26/2023 22.8 (L) MCHC 04/26/2023 30.3 (L) RDW-SD 04/26/2023 48.3 RDW-CV 04/26/2023 18.0 (H) PLT 04/26/2023 387 (H) MPV 04/26/2023 9.4 (L) NRBC/100 WBC 04/26/2023 0.0 NRBC x10 3 04/26/2023 <0.01 GRAN MAT (NEUT) % 04/26/2023 58.9 IMM GRAN % 04/26/2023 0.40 LYMPH % 04/26/2023 31.5 MONO % 04/26/2023 7.5 EOS % 04/26/2023 1.2 BASO % 04/26/2023 0.5 GRAN MAT x10 3 (ANC) 04/26/2023 5.93 IMM GRAN x10 3 04/26/2023 0.04 LYMPH x10 3 04/26/2023 3.17 MONO x10 3 04/26/2023 0.76 EOS x10 3 04/26/2023 0.12 BASO x10 3 04/26/2023 0.05 Case Report 04/26/2023 Value:Surgical Pathology Case: [id number] Authorizing Provider: Bandar Baca MD Collected: 04/26/2023 0816 Ordering Location: [facility] OR Received: 04/26/2023 1015 Department Pathologist: Olga Hearn MD Specimen: ENDOMETRIUM, ENDOMETRIAL CURETTINGS Final Diagnosis 04/26/2023 Value:This result contains rich text formatting which cannot be displayed here. Clinical Information 04/26/2023 Value:Abnormal uterine bleeding [N93.9] Gross Description 04/26/2023 Value:This result contains rich text formatting which cannot be displayed here. Disclaimer 04/26/2023 Value:This result contains rich text formatting which cannot be displayed here. CK 04/26/2023 127 NA 04/27/2023 135 K 04/27/2023 3.7 CL 04/27/2023 105 CO2 TOTAL 04/27/2023 25 AGAP 04/27/2023 5 BUN 04/27/2023 10 GLUCOSE 04/27/2023 97 CREATININE 04/27/2023 0.43 (L) CALCIUM 04/27/2023 8.2 (L) eGFR 04/27/2023 135.2 WBC 04/27/2023 13.64 (H) RBC 04/27/2023 3.61 (L) HGB 04/27/2023 8.2 (L) HCT 04/27/2023 27.4 (L) MCV 04/27/2023 75.9 (L) MCH 04/27/2023 22.7 (L) MCHC 04/27/2023 29.9 (L) RDW-SD 04/27/2023 49.7 RDW-CV 04/27/2023 17.9 (H) PLT 04/27/2023 354 MPV 04/27/2023 9.3 (L) NRBC/100 WBC 04/27/2023 0.0 NRBC x10 3 04/27/2023 <0.01 GRAN MAT (NEUT) % 04/27/2023 75.9 IMM GRAN % 04/27/2023 0.40 LYMPH % 04/27/2023 16.2 MONO % 04/27/2023 7.2 EOS % 04/27/2023 0.1 BASO % 04/27/2023 0.2 GRAN MAT x10 3 (ANC) 04/27/2023 10.34 (H) IMM GRAN x10 3 04/27/2023 0.06 LYMPH x10 3 04/27/2023 2.21 MONO x10 3 04/27/2023 0.98 (H) EOS x10 3 04/27/2023 <0.03 (L) BASO x10 3 04/27/2023 0.03 SARS-CoV-2 Rapid ID NOW 04/27/2023 Not Detected COVID DMT Interpretation 04/27/2023 Value:Interpretation/Recomm endations: Molecular NAAT Tests for Active Infection with the SARS-CoV-2 Virus: The patient has currently tested negative for the SARS-CoV-2 virus that causes COVID-19 illness. This may indicate that the patient does not have an active infection with the SARS-CoV-2 virus. However, infection is not completely ruled out since false negative results for molecular NAAT testing using a nasopharyngeal sample have been reported in variable percentages of patients with acute COVID-19 illness. This is mostly due to timing of sample collection in relation to illness onset (either too early or too late), low SARS-CoV-2 viral load in the upper respiratory tract (which may be related to timing of sample collection), and nasopharyngeal sampling deficiencies rather than inherent test capabilities. If the patient has symptoms concerning for COVID-19 illness, the patient should still isolate for at least 5 days and a repeat NAAT test (PCR, Rapid ID Now, etc.) is recommended. Additionally, if the patient is symptomatic but tests negative for COVID-19, influenza and other upper respiratory infections (such as common cold viruses and RSV) should be considered. Lastly, if the patient was exposed to COVID-19, current CDC guidelines recommend wearing a high-quality mask when around others for 10 days with testing on day 5 in lieu of quarantining. Tests for IgM and/or IgG Antibodies to the SARS-CoV-2 Virus: Testing for IgM and IgG antibodies approximately 3 weeks after illness onset will likely indicate if the patient has produced detectable antibodies to the SARS-CoV-2 virus. However, some patients may take longer to develop detectable antibodies, while others infected with SARS-CoV-2 may never develop detectable antibodies, particularly those who have had mild or asymptomatic illness. Of note, if the patient was vaccinated earlier than 1-2 weeks prior to antibody testing, any positive SARS-CoV-2 IgG antibody result may be due to vaccination. The specific duration and strength of immunity from SARS-CoV-2 IgG antibodies is highly variable between individuals and is dependent on a variety of factors, including infection vs. vaccination response, the waning effect of antibodies overtime, initial infection severity, the strength of the patient's own immune system, and the variants to which the patient is exposed. Specifically, some Omicron subvariants have been shown to be more effective in evading currently existing antibodies, which likely explains re-infections in people who have been previously vaccinated and/or infected. Interpretation Result Comments: These interpretation comments are based upon the following COVID-19 tests the patient has had at [facility]: molecular nucleic acid amplification tests (NAAT) (specifically PCR testing and Rapid ID Now testing) and antibody tests. It does not take into account antigen testing or any additional testing that a patient may have had outside of the [facility] medical record. COVID Results 04/27/2023 Value:SARS-CoV-2 NAAT (no units) Date Value 02/19/2021 Positive (A) 03/27/2020 Not Detected SARS-CoV-2 Rapid ID NOW (no units) Date Value 04/27/2023 Not Detected 03/27/2020 Not Detected 12/05/2019 Not Detected 10/19/2019 Not Detected Adenovirus 04/27/2023 Negative Coronavirus HKU1 04/27/2023 Negative Coronavirus NL63 04/27/2023 Negative Coronavirus 229E 04/27/2023 Negative Coronavirus OC43 04/27/2023 Negative Human Metapneumovirus 04/27/2023 Negative Human Rhinovirus/Enterov* 04/27/2023 Positive (A) Influenza A 04/27/2023 Negative Influenza B 04/27/2023 Negative Parainfluenza Virus 1 04/27/2023 Negative Parainfluenza Virus 2 04/27/2023 Negative Parainfluenza Virus 3 04/27/2023 Negative Parainfluenza Virus 4 04/27/2023 Negative Respiratory Syncytial Vi* 04/27/2023 Negative Bordetella parapertussis 04/27/2023 Negative Bordetella pertussis 04/27/2023 Negative Chlamydia pneumoniae 04/27/2023 Negative Mycoplasma pneumoniae 04/27/2023 Negative SARS-CoV-2 NAAT 04/27/2023 Not Detected NA 04/30/2023 134 (L) K 04/30/2023 4.5 CL 04/30/2023 100 CO2 TOTAL 04/30/2023 28 AGAP 04/30/2023 6 BUN 04/30/2023 14 GLUCOSE 04/30/2023 110 CREATININE 04/30/2023 0.69 CALCIUM 04/30/2023 8.8 eGFR 04/30/2023 120.7 WBC 04/30/2023 10.50 RBC 04/30/2023 3.95 HGB 04/30/2023 9.0 (L) HCT 04/30/2023 31.0 (L) MCH 04/30/2023 22.8 (L) MCV 04/30/2023 78.5 (L) MCHC 04/30/2023 29.0 (L) PLT 04/30/2023 371 (H) MPV 04/30/2023 9.9 RDW-CV 04/30/2023 18.3 (H) RDW-SD 04/30/2023 52.0 (H) NRBC x10 3 04/30/2023 <0.01 NRBC/100 WBC 04/30/2023 0.0 MAGNESIUM 04/30/2023 1.9 PROTIME PATIENT 04/30/2023 10.0 (L) INR 04/30/2023 0.9 TOTAL BILI 04/30/2023 0.2 BILI UNCON 04/30/2023 0.0 (L) BILI CONJ 04/30/2023 0.0 T PROTEIN 04/30/2023 6.6 ALBUMIN 04/30/2023 3.6 ALK PHOS 04/30/2023 92 ALTv 04/30/2023 27 AST(SGOT) 04/30/2023 28 NA 05/01/2023 136 K 05/01/2023 4.7 CL 05/01/2023 102 CO2 TOTAL 05/01/2023 23 AGAP 05/01/2023 11 BUN 05/01/2023 14 GLUCOSE 05/01/2023 126 (H) CREATININE 05/01/2023 0.49 (L) CALCIUM 05/01/2023 9.6 eGFR 05/01/2023 131.0 WBC 05/01/2023 16.10 (H) RBC 05/01/2023 4.36 HGB 05/01/2023 9.9 (L) HCT 05/01/2023 33.5 (L) MCH 05/01/2023 22.7 (L) MCV 05/01/2023 76.8 (L) MCHC 05/01/2023 29.6 (L) PLT 05/01/2023 445 (H) MPV 05/01/2023 9.9 RDW-CV 05/01/2023 18.0 (H) RDW-SD 05/01/2023 49.8 NRBC x10 3 05/01/2023 <0.01 NRBC/100 WBC 05/01/2023 0.0 MAGNESIUM 05/01/2023 2.0 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 on 04/09/2023 Component Date Value Anti-B2 Glycoprotein 1 I* 04/09/2023 2.6 Anti-B2 Glycoprotein 1 I* 04/09/2023 21.2 (H) Anti-B2 Glycoprotein 1 I* 04/09/2023 3.3 Anticardiolipin Antibody* 04/09/2023 3.3 Anticardiolipin Antibody* 04/09/2023 2.6 Anticardiolipin Antibody* 04/09/2023 0.9 ANTI-DSDNA 04/09/2023 <1.0 Anti-Ribonucleoprotein 04/09/2023 Negative Anti-Dumont 04/09/2023 Negative C3 04/09/2023 113 C4 04/09/2023 40 CRP 04/09/2023 1.4 (H) CK 04/09/2023 31 (L) APPEARANCE 04/09/2023 Clear COLOR 04/09/2023 Yellow PH 04/09/2023 5.0 SP GRAVITY 04/09/2023 1.030 GLU U QUAL 04/09/2023 Normal BLOOD 04/09/2023 Negative KETONES 04/09/2023 Negative PROTEIN 04/09/2023 30 mg/dL (A) UROBILIN 04/09/2023 Normal BILIRUBIN 04/09/2023 Negative NITRITE 04/09/2023 Positive (A) LEUK GABBY 04/09/2023 Negative RBC/HPF 04/09/2023 <1 WBC/HPF 04/09/2023 1 BACTERIA 04/09/2023 Many (A) SQ EPITH 04/09/2023 <1 VIT D 25OH 04/09/2023 17 (L) Prothrombin Time 04/09/2023 13.0 PTT-LA Screen (PTT-D) 04/09/2023 43 Thrombin Time 04/09/2023 Not Applicable Reptilase Time 04/09/2023 Not Applicable PTT-D Heparin Neutralized 04/09/2023 Not Applicable PTT-D 1:1 Mix 04/09/2023 Not Applicable Platelet Neutralization * 04/09/2023 Not Applicable dRVVT Screen 04/09/2023 31 (L) dRVVT 1:1 Mix 04/09/2023 Not Applicable dRVVT Confirmation 04/09/2023 Not Applicable Hexagonal Phospholipid N* 04/09/2023 Not Applicable Lupus Anticoagulant Inte* 04/09/2023 See Note THIOPURINE METHYLTRANSFE* 04/09/2023 27.1 IRON 04/09/2023 35 (L) TIBC 04/09/2023 425 (H) % FE SAT 04/09/2023 8 (L) G6PD SCREEN 04/09/2023 Normal Extra Tube 04/09/2023 Received in Lab ANTI-SSA(RO) 04/09/2023 Negative Anti-SSB(LA) 04/09/2023 Negative QFT Gold Plus Result 04/09/2023 Negative Office Visit on 04/09/2023 Component Date Value FERRITIN 04/07/2023 5.6 (L) 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 on 04/07/2023 Component Date Value HSV I IgG 04/07/2023 Positive HSV II IgG 04/07/2023 Negative HCV Ab 04/07/2023 Negative HCV Semi-Quantitative 04/07/2023 0.03 HBsAg 04/07/2023 Negative HBsAg Semi-Quantitative 04/07/2023 0.12 HIV 1/2 Ag-Ab with Reflex 04/07/2023 Negative HIV Semi-quantitative 04/07/2023 0.19 RPR (Qualitative) 04/07/2023 Nonreactive Trichomonas Nucleic Acid 04/07/2023 Negative C. trachomatis Nucleic A* 04/07/2023 Negative N. gonorrhoeae Nucleic A* 04/07/2023 Negative CCP IgG 04/07/2023 4.9 LAST 04/07/2023 Positive (A) RF 04/07/2023 <20 ESR 04/07/2023 47 (H) NA 04/07/2023 138 K 04/07/2023 4.3 CL 04/07/2023 102 CO2 TOTAL 04/07/2023 26 AGAP 04/07/2023 10 BUN 04/07/2023 11 GLUCOSE 04/07/2023 88 CREATININE 04/07/2023 0.52 TOTAL BILI 04/07/2023 0.4 CALCIUM 04/07/2023 9.2 T PROTEIN 04/07/2023 8.0 ALBUMIN 04/07/2023 4.2 ALK PHOS 04/07/2023 93 ALTv 04/07/2023 19 AST(SGOT) 04/07/2023 23 eGFR 04/07/2023 139.4 WBC 04/07/2023 7.57 RBC 04/07/2023 4.34 HGB 04/07/2023 10.3 (L) HCT 04/07/2023 34.5 (L) MCV 04/07/2023 79.5 (L) MCH 04/07/2023 23.7 (L) MCHC 04/07/2023 29.9 (L) RDW-SD 04/07/2023 48.7 RDW-CV 04/07/2023 16.7 (H) PLT 04/07/2023 387 (H) MPV 04/07/2023 10.2 NRBC/100 WBC 04/07/2023 0.0 NRBC x10 3 04/07/2023 <0.01 GRAN MAT (NEUT) % 04/07/2023 67.3 IMM GRAN % 04/07/2023 0.30 LYMPH % 04/07/2023 23.9 MONO % 04/07/2023 6.1 EOS % 04/07/2023 1.7 BASO % 04/07/2023 0.7 GRAN MAT x10 3 (ANC) 04/07/2023 5.10 IMM GRAN x10 3 04/07/2023 <0.03 LYMPH x10 3 04/07/2023 1.81 MONO x10 3 04/07/2023 0.46 EOS x10 3 04/07/2023 0.13 BASO x10 3 04/07/2023 0.05 LAST Titer by IFA 04/07/2023 1:80 LAST Pattern 04/07/2023 Speckled LAST - Pathologist Interp* 04/07/2023 Value:LAST HEp-2 IIFA Pathologist Interpretation Report Patient Name: Eduar Raya Antinuclear Antibody (LAST) Test (Anti-Cell Antibodies Test) Indirect Immunofluorescence Assay on HEp-2 Cells Screening titer: 1:80 (adults, > 18 years old), 1:40 (pediatrics, <= 18 years old) Result: The antinuclear antibody (LAST) test is positive, demonstrating the AC-4/5-Speckled Pattern with a titer of 1:80. A titer greater than or equal to 1:160 is generally considered to be clinically significant. General Remarks: The AC-4/5-Speckled Pattern is one of the least specific LAST immunofluorescent patterns, associated with many autoantibodies, including antibodies against SS-A (Ro), SS-B (La), Mi-2, TIF1-gamma, TIF1-beta, Ku, U1RNP, U2RNP, Dumont, RNA polymerase III, and other currently unspecified autoantigens. As such, this pattern may be found in a wide variety of systemic autoimmune rheumatic diseases, including Sjogren's syndrome, systemic lupus erythematosus (SLE), systemic sclerosis, mixed connective tissue disease (MCTD), undifferentiated connective tissue disease (UCTD), dermatomyositis, polymyositis, and systemic sclerosis-autoimmune myopathy overlap syndrome. Additionally, a nuclear speckled pattern may be found in organ-specific autoimmune diseases (such as autoimmune thyroid disease, autoimmune hepatitis, etc.), other types of autoimmune disease, and certain non-autoimmune diseases/conditions. This pattern may also be seen in relatively healthy individuals, particularly at lower titers. For more information, the International Consensus on LAST Patterns (ICAP) guidelines can be found at www.anapatterns.org. These clinical associations are not absolute but may serve as a guide to differential diagnosis formation and/or subsequent follow-up test selection in the appropriate clinical setting. Importantly, a nuclear speckled pattern with a titer of 1:80 is a non-specific finding whose clinical meaningfulness is uncertain and dependent on the patient's overall clinical presentation. This is because up to approximately 10-12% of individuals in the general healthy population are estimated to have a positive LAST with a titer of at least 1:80. A positive LAST may be seen in even higher percentages in the healthy elderly population and in individuals with a family history of rheumatic disease. The LAST may also be positive in conditions besides systemic autoimmune rheumatic diseases (SARDs), such as in other types of autoimmune disease; in a variety of inflammatory, infectious, and neoplastic conditions; and with certain medication usage. However, while higher LAST titers generally increase the overall likelihood of a SARD in patients presenting with symptoms suggestive of SARD, SARD may occasionally present with low LAST titers. Clinical correlation - with possibly repeating the LAST and any other clinically indicated subserologies - is therefore needed to accurately assess the clinical significance of this non-specific LAST result as it pertains to the patient's overall clinical presentation. References: - [place] A, Bairon R, Lior J, Heriberto DH, Kris MCDUFFIE. Guidelines for clinical use of the antinuclear antibody test and tests for specific autoantibodies to nuclear antigens. [employer] [employer]. Arch Pathol Lab Med. 2000;124(1):71-81. doi:10.5858/1898-642-7278-G FCUOT - Galileo C, Sebastian EC, Catina Lucero. Rational use of blood tests in the evaluation of rheumatic diseases. Mo Med. 2012;109(1):59-63. The LAST test is an important screening test for systemic autoimmune rheumatic disease (SARD). However, the LAST test is non-specific for SARD and may be positive in a variety of clinical settings, including autoimmune, inflammatory, infectious, and neoplastic/malignant conditions, as well as due to certain medications. Additionally, LAST positivity may be seen in varying percentages of healthy individuals, especially at lower titers, in the healthy elderly population, and in individuals with a family history of rheumatic disease. Therefore, a diagnosis cannot be based exclusively on LAST detection and/or pattern and thus should be made via the integration of patient history, physical exam findings, and other diagnostic tests as clinically indicated. Kathryn Ozuna MD 04/10/2023 4:02 PM ICD-10-CM 1. Polyarthralgia M25.50 Please advise. Deb Lindo 09/27/2023 10:[address] [facility] 2023-09-09 08:06:35 Images from the original note were not included. Requested Renewals Name from pharmacy: AZELASTINE 0.1% (137 MCG) SPRY Will file in chart as: AZELASTINE 137 mcg (0.1 %) nasal spray Sig: USE 1 SPRAY IN EACH NOSTRIL IN THE MORNING AND 1 SPRAY IN THE EVENING DIRECTED Disp: Not specified (Pharmacy requested: 30 Each) Refills: Not specified Start: 09/09/2023 Class: eRX Non-formulary For: Acute URI Last ordered: 1 month ago (07/21/2023) by RAMO Ramirez Last refill: 08/10/2023 Rx #: [id number] Allergy [id number]/09/2023 02:48 AM Protocol Details Valid encounter within last 12 months To be filled at: [facility]/pharmacy #[id number] - [address] Recent Visits Date Type Provider Dept 05/26/23 Office Visit Thais Marin PA [facility] 04/23/23 Office Visit Thais Marin PA [facility] 04/07/23 Office Visit Thais Marin PA [facility] 12/09/22 Office Visit Tawana Jean CNM [facility] 11/12/22 [facility] Showing recent visits within past 540 days with a meds authorizing provider and meeting all other requirements Future Appointments Date Type Provider Dept 09/15/23 Appointment Thais Marin PA [facility] Showing future appointments within next 150 days with a meds authorizing provider and meeting all other requirements Stacey Montenegro LVN [facility] 2023-09-07 15:48:04 Images from the original note were not included. Attempted to send to DME via ObsEvate file to large. Will send via right fax. Celeste Brown RN [facility] 2023-09-07 15:11:06 Received Title 19 in right fax from DME presented to Provider for signature. Will return via parachute Celeste Brown RN [facility] 2023-09-06 08:12:35 Images from the original note were not included. Requested Renewals ibuprofen 600 mg tablet Sig: Take 1 tablet by mouth every 6 (six) hours as needed for Pain (scale 1-3). Disp: 30 tablet Refills: 0 Start: 09/04/2023 Class: eRX For: Abnormal uterine bleeding Last ordered: 4 months ago (04/29/2023) by Tono Taylor MD PhD Patient comment: Acute migraines Analgesics: NSAIDS [id number]/04/2023 09:43 PM Protocol Details Valid encounter within last 12 months Cr in normal range and within 360 days To be filled at: [facility]/pharmacy #[id number] - [place], [place] - [address] [place] [address] AT [facility] Recent Visits Date Type Provider Dept 05/26/23 Office Visit Thais Marin PA [facility] 04/23/23 Office Visit Thais Marin PA [facility] 04/07/23 Office Visit Thais Marin PA [facility] 12/09/22 Office Visit Tawana Jean CNM [facility] 11/12/22 Office Visit Tawana Jean CNM [facility] Showing recent visits within past 540 days with a meds authorizing provider and meeting all other requirements Future Appointments Date Type Provider Dept 09/08/23 Appointment Thais Marin PA [facility] Showing future appointments within next 150 days with a meds authorizing provider and meeting all other requirements Stacey Montenegro LVN [facility] 2023-08-30 15:16:31 Per STRATEGY LEAD , RX refilled GEO 08/16/[address] [facility] 2023-08-27 09:12:49 Refill request source: Pharmacy auto refill system Refill request will need to be from patient. OR & CO FOUNDER Noris Stringer RN [facility] 2023-08-26 16:33:42 Esgic refilled [facility] 2023-08-13 17:10:18 PT D/C home. GCS15, VS stable. Given D/C paperwork. Pt ambulatory at time of discharge. Pt educated on med usage, follow up care, s/s worsening condition, need for hydration. Pt verbalized understanding. Pt ambulated from ED in [facility] N Andino RN [facility] 2023-08-13 14:33:12 Patient reports vaginal bleeding that started last night. Patient is and was scheduled for first OB appointment today. Told to come straight to the ED. G10 P 4 A5 OR & CO FOUNDER Adele Melendez RN [facility] 2023-08-13 14:15:00 [facility] Emergency Department Note Patient Name: Eduar Raya Date of : 1995 27 year old female Treatment Room: [facility] ED [facility] [place] Primary Care Physician: Thais Marin Patient Escorted by: Mode of Arrival: Personal means [1] EMS Treatment Prior to ED Arrival: OPEN DEVELOPER OPERATOR treatment: None Travel and Exposure Screening: Symptoms Does patient have any of these symptoms?: (not recorded) Exposure Screening Has patient had contact with someone with a communicable disease in the last month?: (not recorded) Diseases exposed to:: (not recorded) Is Patient ?: (not recorded) Exposure Date: (not recorded) Chief Complaint: Chief Complaint Patient presents with Vaginal Bleeding History of Present Illness: 27 yo F arrived to the ED with complaints of vaginal bleeding- recently discovered she is . Past Medical History/Immunizations: Past Medical History: Diagnosis Date Abnormal uterine bleeding Anemia 2018 ongoing, taking vitamins Anxiety 2001 Resolved, not on meds Arthritis 02/19/2017 Asthma ongoing, 04/2020 in hospital for asthma attack Depression 2001 Resolved, not on meds Dysmenorrhea 04/18/2022 Esophageal reflux History of anemia 08/11/2022 HSV-1 (herpes simplex virus 1) infection Hypertension 2018 gestational, resolved. 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 Passive Exposure: Never Alcohol Use Not Currently. Comments: on occassion, liquor and beer on occassions. Drug Use No. Sexual Activity Sexually active; Partners: Male; Control/Protection: None. Comments: Last intercourse: 11/19/2022 Past Surgical History: Past Surgical History: Procedure Laterality Date SECTION Dr Aragon SECTION N/A 09/24/2016 Surgeon: Joe Martino MD; Location: [facility] Labor and Delivery OR Location SECTION N/A 03/08/2018 Surgeon: Gloria Atkins; Location: Labor and Delivery - [facility] CHOLECYSTECTOMY 2021 DIAGNOSTIC LAPAROSCOPY N/A 01/08/2023 Surgeon: Mariajose Ramsey MD; Location: [facility] DILATION AND CURETTAGE (SHX) 2011 Both (Dr Martino) DILATION AND CURETTAGE (SHX) N/A 09/27/2022 Surgeon: Gillian Reno MD; Location: [facility] DILATION AND CURETTAGE (SHX) N/A 01/08/2023 Surgeon: Mariajose Ramsey MD; Location: [facility] HYSTEROSCOPY N/A 01/08/2023 Surgeon: Mariajose Ramsey MD; Location: [facility] HYSTEROSCOPY WITH DILATATION AND CURETTAGE (SHX) N/A 04/26/2023 Surgeon: Bandar Baca MD; Location: [facility] LAPAROSCOPIC LYSIS OF ADHESIONS (SHX) N/A 01/08/2023 Surgeon: Mariajose Ramsey MD; Location: [facility] LAPAROSCOPIC OVARIAN CYST ASPIRATION Left 01/08/2023 Surgeon: Mariajose Ramsey MD; Location: [facility] OR [facility] TONSILLECTOMY WITH ADENOIDECTOMY Age 2 Review of Systems: Review of Systems Constitutional: Negative. Negative for activity change, appetite change, chills and fever. HENT: Negative. Negative for ear discharge and hearing loss. Eyes: Negative. Negative for photophobia, pain and redness. Respiratory: Negative. Negative for cough, choking, chest tightness and shortness of breath. Breasts: Negative. Cardiovascular: Negative. Negative for chest pain. Gastrointestinal: Negative. Negative for abdominal pain. Genitourinary: Positive for vaginal bleeding. Negative for difficulty urinating and dyspareunia. Musculoskeletal: Negative. Negative for neck pain. Neurological: Negative for dizziness, syncope, weakness, numbness and headaches. Psychiatric/Behavioral: Negative. Negative for confusion. All other systems reviewed and are negative. Physical Exam: ED Triage Vitals [08/13/23 1434] Weight 96.6 kg (213 lb) Actual or estimated Estimated by patient/family report Height 1.702 m (5' 7") BP 130/87 Pulse 83 Resp 22 Temp 36.9 ?C (98.4 ?F) Temp source Oral SpO2 100 % Measured on Room air Physical Exam Vitals and nursing note reviewed. Constitutional: Appearance: Normal appearance. HENT: Head: Normocephalic and atraumatic. Nose: Nose normal. Eyes: Extraocular Movements: Extraocular movements intact. Conjunctiva/sclera: Conjunctivae normal. Pupils: Pupils are equal, round, and reactive to light. Cardiovascular: Rate and Rhythm: Normal rate and regular rhythm. Pulses: Normal pulses. Heart sounds: Normal heart sounds. Pulmonary: Effort: Pulmonary effort is normal. Breath sounds: Normal breath sounds. Abdominal: General: Abdomen is flat. Palpations: Abdomen is soft. Musculoskeletal: General: Normal range of motion. Cervical back: Normal range of motion. Skin: General: Skin is warm. Capillary Refill: Capillary refill takes less than 2 seconds. Neurological: General: No focal deficit present. Mental Status: She is alert and oriented to person, place, and time. Radiology: No orders to display Lab Results: Lab Results CBC WITH DIFF - Abnormal Result Value Ref Range WBC 5.67 4.30 - 11.10 10*3/?L RBC 4.56 3.93 - 5.25 10*6/?L HGB 11.4 (*) 11.6 - 15.0 g/dL HCT 37.1 35.7 - 45.2 % MCV 81.4 80.6 - 95.5 fL MCH 25.0 (*) 25.9 - 32.8 pg MCHC 30.7 (*) 31.6 - 35.1 g/dL RDW-SD 49.0 39.0 - 49.9 fL RDW-CV 16.7 (*) 12.0 - 15.5 % PLT 416 (*) 166 - 358 10*3/?L MPV 10.0 9.5 - 12.9 fL NRBC/100 WBC 0.0 0.0 - 10.0 /100 WBCs NRBC x10 3 <0.01 10*3/?L GRAN MAT (NEUT) % 62.4 % IMM GRAN % 0.20 % LYMPH % 27.3 % MONO % 8.1 % EOS % 1.1 % BASO % 0.9 % GRAN MAT x10 3 (ANC) 3.54 1.88 - 7.09 10*3/uL IMM GRAN x10 3 <0.03 0.00 - 0.06 10*3/uL LYMPH x10 3 1.55 1.32 - 3.29 10*3/uL MONO x10 3 0.46 0.33 - 0.92 10*3/uL EOS x10 3 0.06 0.03 - 0.39 10*3/uL BASO x10 3 0.05 0.01 - 0.07 10*3/uL COMP. METABOLIC PANEL (02778) NA 139 135 - 145 mmol/L K 4.0 3.5 - 5.0 mmol/L CL 108 98 - 108 mmol/L CO2 TOTAL 25 23 - 31 mmol/L AGAP 6 2 - 16 BUN 11 7 - 23 mg/dL GLUCOSE 93 70 - 110 mg/dL CREATININE 0.61 0.50 - 1.04 mg/dL TOTAL BILI 0.5 0.1 - 1.1 mg/dL CALCIUM 8.7 8.6 - 10.6 mg/dL T PROTEIN 8.1 6.3 - 8.2 g/dL ALBUMIN 4.1 3.5 - 5.0 g/dL ALK PHOS 71 34 - 122 U/L ALTv 18 5 - 35 U/L AST(SGOT) 28 13 - 40 U/L eGFR 124.3 mL/min/1.73m2 TYPE AND SCREEN ABO & RH A Positive IAT Negative TOTAL BETA HCG ASSAY BETA HCG 7.37 Non- female and male patients: <5 mIU/mL URINALYSIS EKG: If EKG completed, see Procedure Note. Orders and Treatments: Orders Placed This Encounter Procedures CBC WITH DIFF COMP. METABOLIC PANEL (65887) URINALYSIS Type and Screen - ONCE STAT TOTAL BETA HCG ASSAY No orders of the defined types were placed in this encounter. First Provider Eval: ED Events Date/Time Event User Comments 08/13/231434 Medical Screening Begins BOGDAN GABRIEL -- 02/23/24 1435 First Provider Evaluation HARVEY NASIMNAVIN -- ED COURSE Diagnosis/Impression as of 08/13/23 1630 Vaginal bleeding Threatened Vaginal bleeding affecting early Procedures: Procedures MDM: Medical Decision Making This patient presents with vaginal bleeding in the first trimester. DDX includes ectopic, IUP, threatened/inevitable , along with completed . Patient is HDS and without a history of coagulopathy or infectious symptoms. Doubt alternate acute emergent pathology. Plan: [facility], +/- basic labs, type and screen, TVUS, reassess [facility] 7-no indication for transvaginal ultrasound at this time. Patient instructed to follow-up with 48 hours for repeat beta-hCG and possible ultrasound. Problems Addressed: Threatened : acute illness or injury with systemic symptoms Vaginal bleeding: acute illness or injury with systemic symptoms Vaginal bleeding affecting early : acute illness or injury with systemic symptoms Amount and/or Complexity of Data Reviewed Labs: ordered. Radiology: ordered. Flowsheet Documentation: Scoring Tools: No data recorded Disposition/Condition: ED Disposition ED Disposition Disch - Home Condition Stable Comment -- Discharge Medications: Patient's Medications START taking these medications No medications on file CONTINUE taking these medications which have NOT CHANGED ALBUTEROL 90 MCG/ACTUATION INHALER Inhale 2 Puffs every 6 (six) hours as needed for Wheezing or Shortness of Breath. AMITRIPTYLINE 25 MG TABLET Take 2 tablets by mouth at bedtime. AZELASTINE 137 MCG (0.1 %) NASAL SPRAY USE 1 SPRAY IN EACH NOSTRIL IN THE MORNING AND 1 SPRAY IN THE EVENING DIRECTED BENZONATATE 100 MG CAPSULE Take 2 capsules by mouth every 8 (eight) hours as needed for Cough. BROMPHENIRAMINE-PSEUDOEPHED RINE-DM (BROMFED DM) 2-30-10 MG/5 ML SYRUP Take 5 mL by mouth 4 (four) times daily as needed for Cold symptoms. FERROUS SULFATE 325 MG (65 MG IRON) TABLET Take 1 tablet by mouth in the morning. GABAPENTIN 300 MG CAPSULE Take 1 capsule by mouth 3 (three) times daily as needed (pain). HYDROXYCHLOROQUINE (PLAQUENIL) 200 MG TABLET Take 1.5 tablets by mouth in the morning. IBUPROFEN 600 MG TABLET Take 1 tablet by mouth every 6 (six) hours as needed for Pain (scale 1-3). MAGNESIUM OXIDE 400 MG (241.3 MG MAGNESIUM) TABLET Take 1 tablet by mouth in the morning. METHOCARBAMOL 750 MG TABLET Take 1 tablet by mouth 3 (three) times daily as needed for Other (muscle spasms). NORELGESTROMIN-ETHINYL ESTRADIOL (XULANE) 150-35 MCG/24 HR PATCH Apply 1 Patch to skin weekly. ONDANSETRON 4 MG DISINTEGRATING TABLET Take 1 tablet by mouth every 8 (eight) hours as needed for Nausea and Vomiting (N/V). OZEMPIC 0.25 MG OR 0.5 MG (2 MG/3 ML) PNIJ INJECT 0.5 MG SUBCUTANEOUSLY WEEKLY. PHENTERMINE 37.5 MG TABLET Take 1 tablet by mouth in the morning. VITAMIN W/FA TABLET Take 1 tablet by mouth in the morning. SUMATRIPTAN (IMITREX) 50 MG TABLET Take 1 tablet by mouth as needed for Migraine. TOPIRAMATE 25 MG TABLET Take 1 tablet by mouth in the morning and 1 tablet in the evening. START taking Modified Medications as Prescribed No medications on file STOP taking these medications No medications on file Follow-up: Contact information for follow-up Thais Marin PA Specialty: PA-PHYSICIAN LEARNING SUPPORT SPECIALIST, FM-FAMILY MEDICINE Relationship: PCP - General [facility] [address] [address] Electronically signed by: Bogdan Gabriel DO 08/13/23 1630 [facility] 2023-08-13 11:08:01 Called pt regarding mychart message. Pt reports heavy vaginal bleeding since midnight. Denies soaking more than 1 pad an hour. Pt reports severe abdominal pain 01/28. No relief with tylenol. Pt denies fever. Pt reports body aches and chills. Advised will need to be evaluated by ER. Strict er warnings given. Pt verbalized understanding. Deann Grover RN 08/13/23 11:09 AM [employer] CO FOUNDER Deann Grover RN [facility] 2023-08-11 13:33:24 Called and spoke with pt and advised per Dr. Kirk: "Ok to continue on Imitrex as instructed. ( Max 2 /day, 9/month)" Eduar verbalized understanding. [employer] CO FOUNDER Mary Yu RN [facility] 2023-08-10 14:50:30 Ok to continue on Imitrex as instructed. ( Max 2 /day, 9/month) [employer] F[facility]ER PN-NEUROLOGY STAFF [facility] 2023-08-10 08:31:13 Called patient, no answer, unable to leave a VM. [employer] F[employer]ER Mary Yu RN [facility] 2023-08-09 09:19:43 Eduar Raya is a 27 year old female Pt calling she recently tested positve for via home test pt will see OB doctor soon. Pt asking can she take SUMAtriptan (IMITREX) 50 mg tablet. Please advise. N Price [facility] 2023-08-03 18:13:00 She should be in therapy now Bronwyn Wellington MD, FAAOS Board Certified Orthopedic Surgery Subspecialty Certified in Hand Surgery. Pipe Straightener, Department of Orthopedic Surgery and Rehabilitation. [facility] 2023-08-02 14:07:58 Scheduled an appointment with Bronwyn Wellington MD on 08/25/23 [facility] [employer] [facility]ER Pamela Soto [facility] 2023-08-02 12:08:20 Per last encounter documentation, "Eduar Jocy suggested you call and we can have you see Dr. Wellington sooner to discuss possible surgery. If you would like to do this, please call us at [phone] Thank you Noris ALEXANDRE, BSN [facility] Orthopedics [facility] P: [phone] F: [phone] Last read by Eduar Raya at 11:54 AM on 08/02/2023." Routing to [facility] for assistance with appointment. No nurse triage required. [employer] CO FOUNDER Noris Stringer RN [facility] 2023-08-02 12:02:43 Eduar Raya is a 27 year old female [place], Pt returning nurse call about a sooner appointment with Dr. Wellington. Please contact at [phone] (home) N Sosa [facility] 2023-08-02 10:27:19 Orthopedic Nurse Documentation GEO: 07/29/23 Follow up date: 09/08/[address] Wellington Documentation Received Netseert message: "I was wondering if I had [...] or movement in it makes it swell up" Assessment/Diagnosis: Eduar Raya is a 27 year old female with a left MF MP base fracture. She is doing well and healing as expected. She is experiencing stiffness to IF and MF and numbness from the injury. She would benefit from continued conservative management and OT. PLAN - May wean out of splint. OT for ROM, strengthening - FU 6 weeks with XR left MF with Dr. Wellington - Advised patient to contact us with questions or concerns All Questions/Concerns addressed at the time of this call [] Preferred Pharmacy: [facility]/pharmacy #[id number] - [place] - [phone] AT [facility] Insurance: Payor: [employer] - MANAGED MEDICAID / Plan: [employer] [place] STAR / Product Type: Medicaid / Recent/Future Schedule Appointments at the time of this encounter Recent Visits Date Type Provider Dept 07/29/23 Office Visit Jocy Michael DNP [facility] 07/07/23 Office Visit Bronwyn Wellington MD [facility] 06/23/23 [facility] Showing recent visits within past 365 days and meeting all other requirements Future Appointments Date Type Provider Dept 09/08/23 Appointment [facility] Showing future appointments within next 365 days and meeting all other requirements N Stringer RN [facility] 2023-07-29 15:00:00 Images from the original note were not included. Venipuncture collection performed by clean technique on the left anticubitus. Total of 1 attempts were made. Slight pressure and a bandage/dressing were applied to the site(s). The patient experienced no complications. The following specimens were processed according to instructions and sent to [facility] laboratories per lab order on 07/29/23: LT BLUE 3 SST RED 2 LAV PPT DK GREEN (LiHep) DK GREEN (SodH) GUIDO DK BLUE (K2) DK BLUE (S) ACD Blood Culture NIPT/NTD Patient has been identified by and was provided with cup, antiseptic towelette, and clean catch instructions. 1 urine specimen(s) sent. 1 Unpreserved Urine Culture Aptima tube Other urine OR & CO F[facility]ER [facility] 2023-07-26 16:58:22 Images from the original note were not included. New start DME The following has been sent to the provider for completion via parachute/FAX Orders pended for [employer] Prescription for CPAP Sleep study /data report dated - 06-03-2023 10.6 Demographics - Face sheet Insurance Information Progress Notes from office visit prior to sleep study - 05-26-2023 Follow up due 31-90 days following initiation of any device. [employer] CO FOUNDER Celeste Brown RN [facility] 2023-07-21 08:11:06 Last Refilled: Disp Refills Start End JULIAN azelastine 137 mcg (0.1 %) nasal spray 30 mL 0 05/26/2023 -- -- Sig: Use 1 [place] in each nostril in the morning and 1 [place] in the evening. Use in each nostril as directed Sent to pharmacy as: azelastine 137 mcg (0.1 %) nasal spray aerosol (ASTELIN) Class: eRX Route: Nasal Order: [id number] Date/Time Signed: 05/26/2023 14:57 E-Prescribing Status: Receipt confirmed by pharmacy (05/26/2023 2:57 PM EDITOR & CO FOUNDER) Notes: Recent Visits Date Type Provider Dept 05/26/23 Office Visit Thais Marin PA [facility] 04/23/23 Office Visit Thais Marin PA [facility] 04/07/23 Office Visit Thais Marin PA [facility] 12/09/22 Office Visit Tawana Jean CNM [facility] 11/12/22 Office [facility] Showing recent visits within past 540 days with a meds authorizing provider and meeting all other requirements Future Appointments No visits were found meeting these conditions. Showing future appointments within next 150 days with a meds authorizing provider and meeting all other requirements [employer] F[employer]ER Cassie Victor RN [facility] 2023-07-02 13:54:11 Notified the patient of her positive STI results Trichomonas. Notified the patient her medication has been sent to her pharmacy on file. Educated patient she should complete the entire course, advised patient to practice safe sex practices and to remain abstinent for at least 1-2 weeks post treatment. Patient desires to have partner treated. Name of partner:Amara Galarza :03/28/1991 NKDA: Phone number:[phone] [facility] [place]: [phone] Offered std pamphlet for partner education. Patient declinedstd pamphlet to be mailed to partner. Advised patient on HIV testing if she has not recently been tested. Pt verbalized understanding. Called patient, notified positive for BV. Educated patient on antibiotics, daily probiotics, and BV prevention measures. Pt verbalized understanding. Deann Grover RN 07/02/23 1:55 PM [employer] CO FOUNDER Deann Grover RN [facility] 2023-07-02 12:10:00 Please call patient and let her know she has both BV and trich. I sent flagyl erx which will treat both. Her partner also needs treatment. You can call in Flagyl 2000 mg PO once. [facility] F[facility] 2023-06-22 11:19:41 Contacted Dorothea Coppola for assistance with appointment. Appointment scheduled with Dr. Wellington. N Stringer RN [facility] 2023-06-22 09:22:51 Eduar Raya is a 27 year old female Patient is calling stating per her discharge summary she is suppose to have an gab with Dr. Wellington tomorrow Wed 06.23.23. Please assist. [phone] (home) [employer] F[facility]ER Alisia Montejo [facility] 2023-06-21 19:45:00 Pt given printed and verbal discharge instructions regarding hand pain, encouraged RICE Prescription sent to pt's pharmacy Discussed ibuprofen and to take with food to avoid GI distress, alternate with Tylenol to help with pain and/or fever Pt verbalized understanding of instructions,pt encouraged to follow up with pcp and or hand surgery Advised to seek medical attention for new/prolonged/worsening of symptoms, Awake, alert oriented, resp reg unlabored, skin w/d, pt leaving in no apparent distress, [employer] & CO FOUNDER Irene Sevilla RN [facility] 2023-06-21 18:09:34 Pt arrived via private car with c/o left hand- index, middle and ring finger. States she was making a cheese cake and her "hand got caught in the mixer." [facility] 2023-01-25 23:27:27 Formatting of this n ote might be different from the original. Pt given printed and verbal discharge instructions regarding acute low back pain without sciatica, encouraged hydration, 0 Prescriptions provided Pt verbalized understanding of instructions, pt awake alert oriented, resp reg unlabored, skin w/d, color appropriate for race, moves all ext well,pt encouraged to follow up with pcp. Advised to seek medical attention for new/prolonged/worsening of symptoms, Symptoms improved. No adverse reaction to meds given in ER noted upon discharge PIV d'cd, dressing to site, catheter in tact. Awake, alert oriented, resp reg unlabored, skin w/d, pt leaving amb with steady gait, in no apparent distress, Sandra Harper RN [facility] 2023-01-25 21:29:25 Formatting of this n ote might be different from the original. Pt had a D&C . POCT is negative. PMX: Gallbladder removed 12/[address] [facility] 2023-01-25 20:58:23 Formatting of this n ote might be different from the original. Right lower abdominal pain radiating to right flank/back for 3 days. Pain started intermittently but now is constant. Pain originated in the abdomen. Denies any vaginal discharge or blood in urine. Elizabeth Chand RN [facility] 2023-01-25 20:49:00 Associated Order(s): EKG-12 Lead ONCE Pre-Procedure Diagnose(s): Acute low back pain without sciatica, unspecified back pain laterality Post-Procedure Diagnose(s): Acute low back pain without sciatica, unspecified back pain laterality [facility] Emergency Department Note Patient Name: Eduar Raya Date of : 1995 27 year old female Treatment Room: ME1/[facility] Primary Care Physician: Tawana Jean Patient Escorted by: Self [9] Mode of Arrival: Personal means [1] EMS Treatment Prior to ED Arrival: OPEN DEVELOPER OPERATOR treatment: Analgesic OPEN DEVELOPER OPERATOR treatment comments: 1730- 800 mg Ibuprofen, Tylenol @ 1830 Travel and Exposure Screening: Symptoms Does patient have any of these symptoms?: (not recorded) Exposure Screening Has patient had contact with someone with a communicable disease in the last month?: (not recorded) Diseases exposed to:: (not recorded) Is Patient ?: (not recorded) Exposure Date: (not recorded) Chief Complaint: Chief Complaint Patient presents with Abdominal Pain Flank Pain History of Present Illness: 27 y.o. female with c/o RLQ abdominal and flank pain x 2 days. Denies any fever/chills. +nausea. Patient reports recent D&C(for miscarriage) and subsequent Laparoscopy with left ovarian cyst aspiration. Past Medical History/Immunizations: Past Medical History: Diagnosis Date Anemia 2018 ongoing, taking vitamins Anxiety 2001 Resolved, not on meds Arthritis 02/19/2017 Asthma ongoing, 04/2020 in hospital for asthma attack Depression 2001 Resolved, not on meds Dysmenorrhea 04/18/2022 Esophageal reflux History of anemia 08/11/2022 Hypertension 2018 gestational, resolved. Irregular menstrual cycle 04/03/2022 Ovarian cyst, left 10/22/2022 PTSD (post-traumatic stress disorder) Transfusion history 2012 After First Baby Tetanus received in last 5 years: Yes Childhood immunizations: Up-to-date Allergies: Allergies Allergen Reactions Iodine Anaphylaxis and Swelling Past Social History: Tobacco Use Never smoked or used smokeless tobacco. Passive Exposure: Never Alcohol Use Not Currently. Comments: on occassion, liquor and beer on occassions. Drug Use No. Sexual Activity Sexually active; Partners: Male; Control/Protection: None. Comments: Last intercourse: 11/19/2022 Past Surgical History: Past Surgical History: Procedure Laterality Date SECTION Dr Aragon SECTION N/A 09/24/2016 Surgeon: Joe Martino MD; Location: [facility] Labor and Delivery OR Location SECTION N/A 03/08/2018 Surgeon: Gloria Atkins; Location: Labor and Delivery - [place] CHOLECYSTECTOMY 2021 DIAGNOSTIC LAPAROSCOPY N/A 01/08/2023 Surgeon: Mariajose Ramsey MD; Location: [facility] DILATION AND CURETTAGE (SHX) 2010 Both (Dr Martino) DILATION AND CURETTAGE (SHX) N/A 09/27/2022 Surgeon: Gillian Reno MD; Location: [facility] DILATION AND CURETTAGE (SHX) N/A 01/08/2023 Surgeon: Mariajose Ramsey MD; Location: [facility] HYSTEROSCOPY N/A 01/08/2023 Surgeon: Mariajose Ramsey MD; Location: [facility] LAPAROSCOPIC LYSIS OF ADHESIONS (SHX) N/A 01/08/2023 Surgeon: Mariajose Ramsey MD; Location: [facility] OR LOCATION LAPAROSCOPIC OVARIAN CYST ASPIRATION Left 01/08/2023 Surgeon: Mariajose Ramsey MD; Location: [facility] OR LOCATION TONSILLECTOMY WITH ADENOIDECTOMY Age 2 Review of [...] Negative. Neurological: Negative. Psychiatric/Behavioral: Negative. Endocrine: Endocrine negative Physical Exam: ED Triage Vitals [01/25/232058] Weight 90.7 kg (200 lb) Actual or estimated Estimated by patient/family report Height 1.702 m (5' 7") BP 123/80 Pulse 85 Resp 20 Temp 37.3 ?C (99.1 ?F) Temp source Oral SpO2 100 % Measured on Room air Physical Exam Vitals and nursing note reviewed. Constitutional: Appearance: Normal [...] and Affect: Mood normal. Behavior: Behavior normal. Radiology: CT ABDOMEN PELVIS WO CONTRAST Final Result ORDERING [...] absent gallbladder. END OF REPORT [id number] Lab Results: Lab Results URINALYSIS - Abnormal Result Value Ref [...] 0 - 220 U/L COMP. METABOLIC PANEL (96017) NA 139 135 - 145 mmol/L K [...] 13 - 40 U/L eGFR 113.8 mL/min/1.73m2 EKG: If EKG completed, see Procedure Note. Orders and Treatments: Orders Placed This Encounter Procedures CT ABDOMEN PELVIS WO CONTRAST URINALYSIS POCT TEST CBC WITH DIFF COMP. METABOLIC PANEL (43250) LIPASE Orders Placed This Encounter Medications morpHINE (4 mg/mL) injection 4 mg ondansetron (ZOFRAN (PF)) injection 4 mg First Provider Eval: ED Events None No notes of EC Admission Criteria type on file. ED COURSE Diagnosis/Impression as of 01/25/23 2319 Acute low back pain without sciatica, unspecified back pain laterality Procedures: EKG-12 Lead ONCE Date/Time: 01/25/2023 11:02 PM Performed by: Gaurav John MD Authorized by: Gaurav John MD ECG reviewed by ED Physician in the absence of a internet ecommerce specialist: yes Previous ECG: Previous ECG: Unavailable Interpretation: Interpretation: normal Rate: ECG rate: 68 ECG rate assessment: normal Rhythm: Rhythm: sinus rhythm Ectopy: Ectopy: none QRS: QRS axis: Normal QRS intervals: Normal QRS conduction: normal ST segments: ST segments: Normal T waves: T waves: normal Comments: Normal EKG MDM: Medical Decision Making Amount and/or Complexity of Data Reviewed Labs: ordered. Radiology: ordered. Risk Prescription drug management. Parenteral controlled substances. A) Abdominal Pain-stable at this time Disposition/Condition: Home, rest, hydration, Er warnings, f/u PCP ED Disposition ED Disposition Disch - Home Condition Stable Comment -- Discharge Medications: Patient's Medications START taking these medications No medications [...] these medications No medications on file Follow-up: PCP Electronically signed by: Gaurav John MD 01/25/232318 [facility] 2023-01-20 15:56:59 Formatting of this n ote might be different from the original. Pt was seen on 01/18. YELENAARMANDO BROWN RN 01/20/2023 3:57 PM Yelena Brown RN [facility] 2023-01-18 16:29:22 Formatting of this n ote might be different from the original. Pt given printed and verbal discharge instructions regarding phlebitis, encouraged hydration. 0 Prescriptions provided Discussed ibuprofen and to take with food to avoid GI distress. Pt verbalized understanding of instructions, pt awake alert oriented, resp reg unlabored, skin w/d, color appropriate for race, moves all ext well,pt encouraged to follow up with pcp. Advised to seek medical attention for new/prolonged/worsening of symptoms, Symptoms improved No adverse reaction to meds given in ER noted upon discharge Awake, alert oriented, resp reg unlabored, skin w/d, pt leaving amb with steady gait, in no apparent distress. T [facility] 2023-01-18 14:34:05 Formatting of this n ote might be different from the original. Pt arrived via private car with c/o left upper arm pain and intermittent swelling that has been ongoing since 01/08/2023 post surgery. 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 T [facility] 2023-01-18 14:31:00 Formatting of this n ote is different from the original. [facility] Emergency Department Note Patient Name: Eduar Raya Date of : 1995 27 year old female Treatment Room: [place] [address] [address] Primary Care Physician: Tawana Jean Patient Escorted by: Family [5] Mode of Arrival: Personal means [1] EMS Treatment Prior to ED Arrival: Travel and Exposure Screening: Symptoms Does patient have any of these symptoms?: (not recorded) Exposure Screening Has patient had contact with someone with a communicable disease in the last month?: (not recorded) Diseases exposed to:: (not recorded) Is Patient ?: (not recorded) Exposure Date: (not recorded) Chief Complaint: Chief Complaint Patient presents with Arm Pain Left-Hx DVT History of Present Illness: The patient presents from home for evaluation for [...] No history of high blood pressure or diabetes. Here for evaluation. Past Medical History/Immunizations: Past Medical History: Diagnosis Date Anemia 2017 ongoing, taking vitamins Anxiety 2001 Resolved, not on meds Arthritis 02/19/2017 Asthma ongoing, 04/2020 in hospital for asthma attack Depression 2001 Resolved, not on meds Dysmenorrhea 04/18/2022 Esophageal reflux History of anemia 08/11/2022 Hypertension 2018 gestational, resolved. Irregular menstrual cycle 04/03/2022 Ovarian cyst, left 10/22/2022 PTSD (post-traumatic stress disorder) Transfusion history 2011 After [facility] Allergies: Allergies Allergen Reactions Iodine Anaphylaxis and Swelling Past Social History: Tobacco Use Never smoked or used smokeless tobacco. Passive Exposure: Never Alcohol Use Not Currently. Comments: on occassion, liquor and beer on occassions. Drug Use No. Sexual Activity Sexually active; Partners: Male; Control/Protection: None. Comments: Last intercourse: 11/19/2022 Past Surgical History: Past Surgical History: Procedure Laterality Date SECTION Dr Aragon SECTION N/A 09/24/2016 Surgeon: Joe Martino MD; Location: [facility] Labor and Delivery OR Location SECTION N/A 03/08/2018 Surgeon: Gloria Atkins; Location: Labor and Delivery - [facility] CHOLECYSTECTOMY 2021 DIAGNOSTIC LAPAROSCOPY N/A 01/08/2023 Surgeon: Mariajose Ramsey MD; Location: [facility] DILATION AND CURETTAGE (SHX) 2010 Both (Dr Martino) DILATION AND CURETTAGE (SHX) N/A 09/27/2022 Surgeon: Gillian Reno MD; Location: [facility] DILATION AND CURETTAGE (SHX) N/A 01/08/2023 Surgeon: Mariajose Ramsey MD; Location: [facility] HYSTEROSCOPY N/A 01/08/2023 Surgeon: Mariajose Ramsey MD; Location: [facility] LAPAROSCOPIC LYSIS OF ADHESIONS (SHX) N/A 01/08/2023 Surgeon: Mariajose Ramsey MD; Location: [facility] LAPAROSCOPIC OVARIAN CYST ASPIRATION Left 01/08/2023 Surgeon: Mariajose Ramsey MD; Location: [facility] TONSILLECTOMY WITH ADENOIDECTOMY Age 2 Review of [...] 99 % Measured on Room air Physical Exam Vitals and nursing note reviewed. Constitutional: Appearance: Normal appearance. She is obese. HENT: Head: Normocephalic and atraumatic. Cardiovascular: Rate and Rhythm: Normal rate. Pulmonary: Effort: Pulmonary effort is normal. No respiratory distress. Abdominal: General: There is no distension. Palpations: Abdomen is soft. Musculoskeletal: Cervical back: Normal range of motion and neck supple. Comments: Full range of motion of her left shoulder, wrist and elbow. There is a ropelike structure along the medial aspect of her left ventral upper arm that is mildly tender, warm and swollen. No fluctuance. Neurological: General: No focal deficit present. Mental Status: She is alert and oriented to person, place, and time. Radiology: No orders to display Lab Results: Lab Results - No data to display EKG: If EKG completed, see Procedure Note. Orders and Treatments: No orders of the defined types were placed in this encounter. No orders of the defined types were placed in this encounter. First Provider Eval: ED Events Date/Time Event User Comments 01/18/23 144 Medical Screening Begins DEB BENAVIDEZ DO -- 01/18/23 144 First Provider Evaluation DEB BENAVIDEZ DO -- No notes of EC Admission Criteria type on file. ED COURSE Diagnosis/Impression as of 01/18/23 1622 Pain of left upper extremity Phlebitis Procedures: Procedures MDM: Medical Decision Making The patient presents from home for evaluation for [...] past. She does not take any blood thinners. Vital signs are stable in the ER. She has full range of motion of her left elbow and shoulder. She is a ropelike structure noted to the medial aspect of her left ventral upper arm that is tender, warm and swollen. Suspect phlebitis and less likely a DVT. We will obtain a vascular ultrasound to evaluate for possible DVT. Anticipate discharge home later. 1620 -the patient is doing well in the ER. The DVT study of her left arm shows no DVT rather just phlebitis. Recommend warm compress as well as NSAIDs. She remained stable here in the ER and is okay for discharge home with PCP follow-up. Problems Addressed: Pain of left upper extremity: acute illness or injury Phlebitis: acute illness or injury Amount and/or Complexity of Data Reviewed Radiology: ordered. Decision-making details documented in ED Course. Risk OTC drugs. Flowsheet Documentation: Scoring Tools: No data recorded Disposition/Condition: ED Disposition ED Disposition Disch - Home Condition Stable Comment -- Discharge Medications: Patient's Medications START taking these medications No medications [...] these medications No medications on file Follow-up: Electronically signed by: Deb Benavidez DO 01/18/23 162 [facility] 2023-01-18 09:30:00 Addended by: ZENA WATTERS on: 01/18/2023 12:55 PM Modules accepted: Orders [facility] 2023-01-09 10:30:20 Formatting of this n ote might be different from the original. Problem: Pain Goal: Control of pain at or below patient's documented comfort goal Outcome: Progressing as expected Goal: Reduction in pain sensation Outcome: Progressing as expected Problem: Venous Thromboembolism, (actual or risk of) Goal: Absence of venous thromboembolism (Risk) Outcome: Progressing as expected Goal: Prevent further complications associated with VTE diagnosis (Actual) Outcome: Progressing as expected Problem: Falls, Risk of Goal: Absence of falls Outcome: Progressing as expected Problem: Infection Risk Goal: Absence of infection Outcome: Progressing as expected [facility] Lala Hoang RN [facility] 2023-01-09 01:47:43 Formatting of this n ote might be different from the original. Problem: Pain Goal: Control of pain at or below patient's documented comfort goal Outcome: Progressing as expected Goal: Reduction in pain sensation Outcome: Progressing as expected Problem: Venous Thromboembolism, (actual or risk of) Goal: Absence of venous thromboembolism (Risk) Outcome: Progressing as expected Goal: Prevent further complications associated with VTE diagnosis (Actual) Outcome: Progressing as expected Problem: Falls, Risk of Goal: Absence of falls Outcome: Progressing as expected Problem: Infection Risk Goal: Absence of infection Outcome: Progressing as expected [facility] 2023-01-08 19:50:00 Formatting of this n ote might be different from the original. Faculty Surgeon(s): Mariajose Ramsey MD Anesthesia Type: General, ET IV Fluids: 3500 cc Lactated Ringers Colloid Fluids: None Specimens Sent to Pathology: Products of conception Urine Output: 250 cc of clear urine Complications: Uterine perforation Estimated Blood Loss: 850 mL- from D&C Disposition: PACU Status: Stable Fluid In: 1090 cc Fluid Out: 605 cc Fluid Deficit: 485 cc Indication: Eduar Raya is a 27 year old female, with failed and possible molar ,followed at the [facility] in [place], presented to the ER with worsening lower abdominal pain and agree to proceed with suction D&C Findings: Bulky uterus, 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 Posterior uterine wall perforation. Left ovarian cyst, simple. Bands of omentum adhesion to the anterior abdominal wall. Procedure details: After obtaining informed consent, the patient was taken to the or where general anesthesia was secured without difficulty. She was placed on the operating table in the dorsal lithotomy position and prepped and draped in the usual sterile fashion. Time out was performed Castro was placed Bivalved speculum placed and anterior lip of the cervix grasped with a single toothed tenaculum. The procedure was performed under ultrasound guidance Cervical os was dilated to 10 Hegar under ultrasound guidance. The 10 mm curved suction curette was advanced to the fundus with evaucation of copious amounts of tissue and blood. I was unable pass the metal curette past BRYCE of the uterus due to acute retroversion of the uterus. So further suction curettage was done with mainly blood clots retrieved. She was given Methergine and Oxytocin infusion was commenced Another attempt to pass metal curette was also unsuccessful but this time around I could not see the tip of the curette on the ultrasound. No sharp curettage was performed Bleeding had stopped with uterotonics. And ET was [...] concerning for suspected perforation. Decision to proceed laparoscopy Patient was repositioned, prepped and draped in the usual sterile fashion for abdominal surgery. Sponge stick was used for uterine manipulation. Attention was turned to the abdomen the infraumbilical [...] the skin had been infiltrated with 0.25% Marcaine. Blood tinged fluid was seen in the peritoneal cavity. Dense midline omental/anterior wall adhesions noted. Adhesions were taken down with Ligasure. Fluid suctioned out. Further pelvic survey revealed a posterior uterine wall perforation noted on the right side at the uterocervical junction. Some extravasation of blood was also noted along the right pelvic side wall but no expanding hematoma noted. The perforation and pelvic side was watched for a long time and was noted to be hemostatic even under 5 mmHg pressure The left ovarian cyst was drained- clear fluid. Irrigation performed. Surgicel was placed over the perforation site All instruments were removed. The skin closed with 4-0 Monocryl using subcutaneous stitches. The sponge stick and castro were removed. Patient tolerated procedure well. Sponge, laps, and needle counts correct. Mariajose Ramsey MD [facility] 2023-01-08 13:08:30 Formatting of this n ote might be different from the original. Patient reported (after morphine administration) that she always itches after I.V. morphine. Provider notified and 25mg. Of Benadryl I.V. administered. Patient states she has no itching shortly after administration of benadryl. No wheezing, oral/facial edema or hives noted at any time. Amanda Collier RN [facility] 2023-01-08 10:27:12 Formatting of this n ote might be different from the original. Patient states: "They diagnosed me with a molar (9 weeks ). I'm suppose to have the terminated on Wednesday. Last night I started getting worse back pain and pelvic pain. " Denies vaginal bleeding. Jamie Vallecillo RN [facility] 2023-01-08 10:20:00 Formatting of this n ote is different from the original. 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 She states she is scheduled for DC on Wednesday for Molar . Denies any urinary complaints. No vaginal bleeding. with PMHx of x4, cholecystectomy, and D&C. She states she vomited a few times yesterday and today. Ate breakfast this morning, OPEN DEVELOPER OPERATOR about 10 AM History provided by: Patient lang interpreter used: No Past Medical History/Immunizations: Past Medical History: Diagnosis Date Anemia 2018 [...] Baby Tetanus received in last 5 years: Unknown Childhood immunizations: Up-to-date Allergies: Allergies Allergen Reactions Iodine Anaphylaxis and Swelling Past Social History: Tobacco Use Never smoked or used smokeless tobacco. Alcohol Use Not Currently. Comments: on occassion, liquor and beer on occassions. Drug Use No. Sexual Activity Sexually active; Partners: Male; Control/Protection: None. Comments: Last intercourse: 11/19/2022 Past Surgical History: Past Surgical History: Procedure Laterality Date SECTION Dr Aragon SECTION N/A 09/24/2016 Surgeon: Joe Martino MD; Location: [facility] Labor and Delivery OR Location SECTION N/A 03/08/2018 Surgeon: Gloria Atkins; Location: [facility] Delivery [facility] CHOLECYSTECTOMY 2021 DILATION AND CURETTAGE (SHX) 2010 Both (Dr Martino) DILATION AND CURETTAGE (SHX) N/A 09/27/2022 Surgeon: Gillian Reno MD; Location: [facility] OR LOCATION TONSILLECTOMY WITH ADENOIDECTOMY Age 2 Review of [...] numbness. All other systems reviewed and are negative. Hematological: Does not bruise/bleed easily. Physical Exam: ED Triage Vitals [01/08/23 1028] Weight 90.7 kg (200 lb) Actual or estimated Estimated by patient/family report Height 1.702 m (5' 7") BP 116/76 Pulse 108 Resp 16 Temp 37.5 ?C (99.5 ?F) Temp source Oral SpO2 99 % Measured on Room air Physical Exam Vitals and nursing note reviewed. Constitutional: Appearance: Normal appearance. She is not ill-appearing, toxic-appearing or diaphoretic. Interventions: She is not intubated. HENT: Head: Atraumatic. Cardiovascular: Rate and Rhythm: Normal [...] Content: Thought content normal. Judgment: Judgment normal. Radiology: No orders to display Lab Results: Lab Results CBC WITH DIFF - Abnormal Result [...] 0.01 - 0.07 10*3/uL COMP. METABOLIC PANEL (14299) - Abnormal NA 136 135 - 145 [...] Positive IAT Negative TOTAL BETA HCG ASSAY EKG: If EKG completed, see Procedure Note. Orders and Treatments: Orders Placed This Encounter Procedures CBC WITH DIFF COMP. METABOLIC PANEL (04478) LIPASE URINALYSIS Type and Screen - ONCE STAT TOTAL BETA HCG ASSAY CONSULT ELECTRICIAN SUPERVISOR SUBSTATION Orders Placed This Encounter Medications NaCl 0.9% (NS) bolus infusion 1,000 mL ondansetron (ZOFRAN (PF)) injection 4 mg morpHINE (4 mg/mL) injection 4 mg diphenhydrAMINE (BENADRYL) injection 25 mg morpHINE (4 mg/mL) injection 4 mg First Provider Eval: ED Events Date/Time Event User Comments 01/08/23 1031 Medical Screening Begins CLARY PEREZ -- 01/08/23 1031 First Provider Evaluation CLARY PEREZ -- ED COURSE Diagnosis/Impression as of 01/08/23 1356 Lower abdominal pain Molar Procedures: Procedures MDM: Labs reviewed and unremarkable Spoke with Dr. Baca's resident, she states ok to keep in ANG Spoke with Dr. Ramsey, will come see patient and wanted me to call Anesthesia lead ruby on rails developer, which I did and was made aware of case. 1:[address] Ramsey present at bedside Patient Vitals for the past 24 hrs: BP Temp Temp src Pulse Resp SpO2 Height Weight 01/08/23 1302 -- -- -- -- 17 -- -- -- 01/08/23 1200 118/78 -- -- 93 17 99 % -- -- 01/08/23 1028 116/76 37.5 ?C (99.5 ?F) Oral 108 16 99 % 1.702 m (5' 7") 90.7 kg (200 lb) Medical Decision Making Amount and/or Complexity of Data Reviewed Labs: ordered. Risk Prescription drug management. Parenteral controlled substances. Flowsheet Documentation: Scoring Tools: No data recorded Disposition/Condition: ED Disposition None Discharge Medications: Patient's Medications START taking these medications No medications [...] Take 1 tablet by mouth every morning. Follow-up: Electronically signed by: Clary Richmond FNP 01/08/23 1332 Associated attestation - Jessica Torres DO - 01/09/2023 8:17 AM CDT I was personally available for consultation in the Emergency Department during this Patient evaluation/encounter. I have no professional relationship with this patient and did not establish a patient-doctor relationship with them. I am only administratively signing the chart. Jessica Torres DO [facility] Emergency Medicine [facility] 2023-01-06 08:07:30 Formatting of this n ote is different from the original. Name/ MRN / Age / Gender: Eduar Raya, [id number] 27 year old female BMI: Estimated body mass index is 31.36 kg/m? as calculated from the following: Height as of 01/04/23: 1.702 m (5' 7"). Weight as of 01/04/23: 90.8 kg (200 lb 3.2 oz). Allergies: Iodine Last Vitals: BP Readings from Last 1 Encounters: 01/04/23 110/71 Pulse Readings from Last 1 Encounters: 01/04/23 73 SpO2 Readings from Last 1 Encounters: 01/02/23 100% Date of Surgery: 01/11/2023 Surgeon: Bandar Baca MD Procedure: DILATION AND CURETTAGE (Vagina) OR Location: [facility] OR LOCATION Anesthesia Preop Screen (no physical exam) Copied forward and updated from: 09/27/2022 Anesthesia Preop: Chart Review and Phone Preop APA questionnaire answers incorporated [facility] Communication: Patient came to ED at [facility]. Ate @ 10 am full meal. History of previous blood transfusion. Pending urgency from surgeon to determine time of surgery. Severo Pickett MD 01/08/2023 12:11 PM LM- Chart review only. Pt reports anesthesia complications on questionnaire, called to assess. 27 year old with concern for molar vs SAB. D&C for 01/11/[address] Baca. Returned pt call, Spoke with pt to complete [facility] eval. All questions answered and [facility] evaluation updated. Ese Puga RN 01/06/2023 12:17 PM PONV Risk Factors: female, non-smoker and post-op opiate use anticipated PONV Risk Score: 3 Anesthesia History (+) Hx of anesthetic complications (PT REPORTS PONV) (+) Hx of PONV (-) Fam hx of anesthetic complications (-) Hx of malignant hyperthermia (-) Pt reports no hx of difficult airway (+) Hx of difficult IV access ( has needed US and juan finder in the past per pt ) Previous Anesthetics/Airways Additional Comments: 09/27/2022: ETT 7.0, cuffed, DLx1, oral, MAC #3, GI-FVOG. Cardiovascular Comments: 11/15/2019 EKG Normal sinus rhythm Possible Anterior infarct age undetermined Abnormal ECG When compared with ECG of 19-OCT-2019 05:02, No significant change has occurred METS: 5-6 METS Comments: Pt reports she is able to walk 1-2 blocks w/o cp/sob as well as climb stairs w/o cp/sob. PT does all ADL's and housework w/o cp/sob. Denies SOB w/ laying flat and BLE swelling. (-) Chest pain with 1-2 flights of stairs (-) Patient reports cardiac eval within past 5 years (+) Hypertension (-) No Hx of echocardiogram within past 5 Years (-) Echocardiogram results (-) Hx of cardiac stress test (-) Hx of cardiac cath (-) Recent EKG (-) Angina/Chest Pain Within Last Year (-) Patient does not report prior CO (-) CAD (-) Valvular problems/murmurs (-) Dysrhythmias (-) Pt reports prior cardiac surgery (-) No cardiovascular devices present (-) CHF Pulmonary (+) Patient reports snoring or stopping breathing during sleep ( snores) (-) Sleep apnea (-) Home O2 (-) COPD (+) Asthma (-) ED/Hospitilized in the last year Frequency of inhaler/nebulizer use: As needed Atleast once a day (-) Shortness of breath (-) Tobacco use (-) Smokeless tobacco use (-) Cigarette use (-) Vaping use (-) COVID-19 within the past 6 weeks ( 4 xs most recent 1.5 yrs ago recovered at home all times) (-) Influenza within the past 6 weeks (-) Pneumonia within the last 6 weeks (-) Recent bronchitis or URI Neuro/Musculoskeletal Comments: Back pain with right-sided sciatica MRI cervical spine and MRA brain: Central disc protrusions at T5-T6 and T6-T7 indenting the ventral thoracic cord but not resulting in significant spinal canal stenosis. ? The cervical, thoracic and lumbar spines are otherwise unremarkable. No high-grade spinal canal stenosis or neural foraminal narrowing. (-) CVA (-) Seizures (+) Psychiatric history ( PTSD) and depression and other (+) Anxiety (-) Neuromuscular Disease (-) Positioning limitations (+) Obesity GI/Hepatic (+) GERD and can lay flat without symptoms (-) PUD (-) Hepatitis (-) Liver disease Hematology Comments: 01/04/23 WBC x10^3: 7.53 RBC x10^6: 4.34 HGB: 12.2 HCT: 38.7 PLT x10^3: 367 (H) 09/26/22 PROTIME: 11.7 (L) PT INR: 0.9 01/01/23 ABO & RH: A Positive IAT: Negative (+) Anemia (+) PE/DVT ( 1 yrs ago after gall bladder removal in RUE. Resolvd now per pt ) and upper/lower extremity (-) pulmonary (+) Prior blood transfusion (-) Not on anti-coagulant therapy (+) Patient accepts blood transfusion Renal Comments: 01/01/23 NA: 136 K: 5.0 CL: 101 CO2 TOTAL: 25 AGAP: 10 BUN: 9 GLUCOSE: 81 CREATININE: 0.46 (L) eGFR: 160.6 (-) Patient reports no kidney problems (-) Renal disease (-) Dialysis (-) Nephrolithiasis Skin Negative Skin ROS (-) Rash Endo/Other Negative Endo/Other ROS (-) Diabetes Mellitus (-) Hyperthyroidism (-) Hypothyroidism (-) Steriod use Other (-) Tobacco use (-) Smokeless tobacco use (-) Cigarette use (-) Vaping use (+) Alcohol use ( on occassion, liquor and beer on occassions) (+) Drug use (marijuana use pt denies) (-) 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 ER course: US today--IUP with 8 week gestational sac, no pole, +clots. DX Vaginal bleeding in , first trimester, Missed . , f/u OB/Clinic in 2-3 days to discuss further care and options. ? P: 4 Prior c-sections: > 4 Pediatric Pediatric N/A N/A Preoperative Medication Instructions Continue taking all prescribed medications except: TONY inhibitors, ARBs, diuretics, all oral diabetes medications Anticoagulant Therapy: Defer to surgeons Insulin: Take 1/2 dose the night prior to surgery. Hold on DOS. Phentermine: Alert [facility] anesthesiologist SGLT2 Inhibitors: "gliflozins" to be held for 3 days prior to elective surgeries MAC Cases: Continue taking TONY inhibitors and ARBs ASA Classification ASA: 2 Current Medications: No current facility-administered medications for this encounter. Current [...] N/A 09/24/2016 Surgeon: Joe Martino MD; Location: [facility] Labor and Delivery OR Location SECTION N/A 03/08/2018 Surgeon: Gloria Atkins; Location: [facility] and Delivery - [facility] CHOLECYSTECTOMY 2021 DILATION AND CURETTAGE (SHX) 2010 Both (Dr Martino) DILATION AND CURETTAGE (SHX) N/A 09/27/2022 Surgeon: Gillian Reno MD; Location: [facility] OR LOCATION TONSILLECTOMY WITH ADENOIDECTOMY Age 2 Anesthesia Physical Exam General no apparent distress and alert and oriented x 3 Neuro/Psych neurological Dental poor dentition Abdominal GI exam normal Airway Mallampati score:II TM distance:> 5 cm Mouth opening:normal Extremity Pulmonary pulmonary exam normal Other Cardiovascular cardiovascular exam normal Anesthesia Plan ASA Status: 2 Plan discussed during pre-op evaluation: General Anesthetic plan on DOS: General Plan to include: IV induction, RSI and cricoid pressure Anesthesia plan discussed with: patient or door to door sales representative Post-Operative Analgesia: routine analgesia & antiemetics Recovery Plan: PACU Additional comments: AN-ANESTHESIOLOGY ANESTHESIOLOGIST [facility]
[2024-03-08] MEDS ORDERED: IBUPROFEN 200 MG TAB PO ONE (19:40)
[2024-03-08] MEDS ORDERED: IBUPROFEN 400 MG TAB ONE (19:40)
[2024-03-08 20:22] LABS: SARS-CoV-2 Antigen CONTROL BLUE LINE VIS/BG OK; SARS-CoV-2 Antigen Rapid Res Negative (Negative)
--- NOTE | 2024-03-08 20:32 | ER ---
Nurse's Notes [facility] Name: Elba Wells Age: 28 yrs Sex: Female : 1995 Arrival Date: 03/08/2024 Time: 18:33 Bed DX1 Private MD: Diagnosis: Acute upper respiratory infection, unspecified;Cough;Fever, unspecified Presentation: 03/08 19:02 Chief complaint: Patient states: a week ago, started to get harder to breathe, chest tm6 and throat and body hurts, ears hurt, fever. Went to urgent care and they gave me medication for ear infection. Coronavirus screen: Vaccine status: Patient reports being unvaccinated. Ebola Screen: Patient negative for fever greater than or equal to 101.5 degrees Fahrenheit, and additional compatible Ebola Virus Disease symptoms Patient denies exposure to infectious person. Patient denies travel to an Ebola-affected area in the 21 days before illness onset. No symptoms or risks identified at this time. Initial Sepsis Screen: Does the patient meet any 2 criteria? No. Patient's initial sepsis screen is negative. Does the patient have a suspected source of infection? No. Patient's initial sepsis screen is negative. Risk Assessment: Do you want to hurt yourself or someone else? Patient reports no desire to harm self or others. Onset of symptoms was March 01, 2024. 19:02 Method Of Arrival: Ambulatory tm6 19:02 Acuity: CED 4 tm6 Triage Assessment: 19:09 General: Appears in no apparent distress. Behavior is calm, cooperative. Pain: tm6 Complains of pain in body aches, ears. EENT: Reports nasal congestion nasal discharge ear pain. Neuro: Level of Consciousness is awake, alert, obeys commands, Oriented to person, place, time, situation. Cardiovascular: Patient's skin is warm and dry. Respiratory: Reports cough that is pain with cough Airway is patent Respiratory effort is even, unlabored, Respiratory pattern is regular, symmetrical. GI: No signs and/or symptoms were reported involving the gastrointestinal system. Abdomen is round. : No signs and/or symptoms were reported regarding the genitourinary system. Derm: No signs and/or symptoms reported regarding the dermatologic system. Musculoskeletal: No signs and/or symptoms reported regarding the musculoskeletal system. 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/2024, unknown tm6 Historical: - Allergies: 19:03 Iodinated Contrast Media - IV Dye; tm6 - Home Meds: 19:03 cetirizine Oral [Active]; Plaquenil Oral [Active]; Esgic Oral [Active]; Robaxin Oral tm6 [Active]; Toradol Oral [Active]; Ubrelvy oral [Active]; Promethazine Oral [Active]; Diazepam Oral [Active]; 19:07 Zofran Oral [Active]; Qulipta oral [Active]; Cymbalta oral [Active]; nortriptyline Oral tm6 [Active]; Albuterol Inhl [Active]; - PMHx: 19:03 Anemia; Asthma; Lupus erythematosus; Rheumatoid Arthritis; Fibromyalgia; tm6 - PSHx: 19:03 Adenoid excision; section; Cholecystectomy; D\T\C; Ovarian cyst removal; tm6 Tonsillectomy; - Immunization history:: Client reports having NOT received the Covid vaccine. - Infectious Disease History:: Denies. - Social history:: Smoking status: Patient/guardian denies using tobacco, Stopped _ months ago 3. - Family history:: not pertinent. Screenin:01 [facility] ED Fall Risk Assessment (Adult) History of falling in the last 3 months, lg3 including since admission No falls in past 3 months (0 pts) Confusion or Disorientation No (0 pts) Intoxicated or Sedated No (0 pts) Impaired Gait No (0 pts) Mobility Assist Device Used No (0 pt) Altered Elimination No (0 pt) Score/Fall Risk Level 0 - 2 = Low Risk Oriented to surroundings, Maintained a safe environment, Educated pt \T\ family on fall prevention, incl call for assistance when getting out of bed, Assessed \T\ reinforced patient's understanding of fall precautions. Abuse screen: Denies threats or abuse. Denies injuries from another. Nutritional screening: No deficits noted. Tuberculosis screening: No symptoms or risk factors identified. Assessment: 20:01 General: Appears in no apparent distress. comfortable, Behavior is calm, cooperative. lg3 Pain: Complains of pain in generalized body aches. Neuro: No deficits noted. Bruce Agitation-Sedation Scale (RASS): 0 - Alert and Calm Level of Consciousness is awake, alert, obeys commands, Oriented to person, place, time, situation. Cardiovascular: No deficits noted. Reports fatigue, shortness of breath, Capillary refill < 3 seconds Clubbing of nail beds is absent JVD is absent Patient's skin is warm and dry. Respiratory: Reports shortness of breath cough that is non-productive, Breath sounds are clear bilaterally. GI: No deficits noted. No signs and/or symptoms were reported involving the gastrointestinal system. : No deficits noted. No signs and/or symptoms were reported regarding the genitourinary system. EENT: No deficits noted. Reports nasal congestion. Derm: No deficits noted. No signs and/or symptoms reported regarding the dermatologic system. Skin is intact, is healthy with good turgor, Skin is dry, Skin is normal, Skin temperature is warm. Musculoskeletal: No deficits noted. Circulation, motion, and sensation intact. Range of motion: intact in all extremities. 20:58 Reassessment: Patient appears in no apparent distress at this time. No changes from lg3 previously documented assessment. Patient and/or family updated on plan of care and expected duration. Pain level reassessed. Patient is alert, oriented x 3, equal unlabored respirations, skin warm/dry/pink. Vital Signs: 19:01 BP 104 / 82; Pulse 86; Resp 20; Temp 99.1(O); Pulse Ox 100% on R/A; Weight 56.7 kg; tm6 Height 5 ft. 7 in. ; Pain 8/10; 20:59 BP 107 / 76; Pulse 81; Resp 18 S; Temp 98.6(O); Pulse Ox 100% on R/A; lg3 19:01 Body Mass Index 19.58 (56.70 kg, 170.18 cm) tm6 19:01 Pain Scale: Adult tm6 ED Course: 18:48 Patient arrived in ED. im 19:03 Ariel Solomon MD is Attending Physician. sada 19:03 Triage completed. tm6 19:09 Arm band placed on left wrist. tm6 20:01 Sonja Murrieta RN is Primary Nurse. lg3 20:01 Patient has correct armband on for positive identification. lg3 20:26 Flu Sent. kmf 20:26 Throat Culture Sent. kmf 20:26 Strep Sent. kmf 20:59 No provider procedures requiring assistance completed. Patient did not have IV access lg3 during this emergency room visit. Administered Medications: 19:58 Not Given (Patient Refused): [id number] mg PO once lg3 20:58 Drug: Rocephin (cefTRIAXone) IM 1 grams IM once Route: IM; Site: left deltoid; lg3 20:58 Follow up: Response: No adverse reaction lg3 20:58 Drug: AZITHromycin PO 500 mg PO once Route: PO; lg3 20:58 Follow up: Response: No adverse reaction lg3 Medication: 20:59 VIS not applicable for this client. lg3 Outcome: 20:32 Discharge ordered by . sada 20:59 Discharged to home ambulatory, lg3 20:59 Condition: stable 20:59 Discharge instructions given to patient, Instructed on discharge instructions, follow up and referral plans. medication usage, Demonstrated understanding of instructions, follow-up care, medications, Prescriptions given X 4, 21:00 Patient left the ED. lg3 Signatures: Ariel Solomon MD MD cha Able, Lacie, RN RN lg3 Nika Garcia Kelsey Maroul [facility] [place], RN RN tm6
--- NOTE | 2024-03-08 20:32 | EDPHYS ---
Physician Documentation [facility] Name: Elba Wells Age: 28 yrs Sex: Female : 1995 Arrival Date: 03/08/2024 Time: 18:33 Bed DX1 Private MD: ED Physician Ariel Solomon HPI: 03/08 20:26 This 28 yrs old Female presents to ER via Ambulatory with complaints of Flu sada Symptoms. 20:26 The patient or guardian reports airway noise, cough. Onset: The symptoms/episode sada began/occurred 7 day(s) ago. Severity of symptoms: At their worst the symptoms were moderate, in the emergency department the symptoms are unchanged. Modifying factors: The symptoms are alleviated by nothing, the symptoms are aggravated by nothing. Associated signs and symptoms: Pertinent positives: earache. The patient has experienced similar episodes in the past, multiple times. 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 tm6 Historical: - Allergies: 19:03 Iodinated Contrast Media - IV Dye; tm6 - Home Meds: 19:03 cetirizine Oral [Active]; Plaquenil Oral [Active]; Esgic Oral [Active]; Robaxin Oral tm6 [Active]; Toradol Oral [Active]; Ubrelvy oral [Active]; Promethazine Oral [Active]; Diazepam Oral [Active]; 19:07 Zofran Oral [Active]; Qulipta oral [Active]; Cymbalta oral [Active]; nortriptyline Oral tm6 [Active]; Albuterol Inhl [Active]; - PMHx: 19:03 Anemia; Asthma; Lupus erythematosus; Rheumatoid Arthritis; Fibromyalgia; tm6 - PSHx: 19:03 Adenoid excision; section; Cholecystectomy; D\T\C; Ovarian cyst removal; tm6 Tonsillectomy; - Immunization history:: Client reports having NOT received the Covid vaccine. - Infectious Disease History:: Denies. - Social history:: Smoking status: Patient/guardian denies using tobacco, Stopped _ months ago 3. - Family history:: not pertinent. ROS: 20:26 Constitutional: Negative for fever, chills, and weight loss, Eyes: Negative for injury, sada pain, redness, and discharge, Neck: Negative for injury, pain, and swelling, Cardiovascular: Negative for chest pain, palpitations, and edema, Respiratory: Negative for shortness of breath, cough, wheezing, and pleuritic chest pain, Abdomen/GI: Negative for abdominal pain, nausea, vomiting, diarrhea, and constipation, Back: Negative for injury and pain, : Negative for injury, bleeding, discharge, and swelling, MS/Extremity: Negative for injury and deformity, Skin: Negative for injury, rash, and discoloration, Neuro: Negative for headache, weakness, numbness, tingling, and seizure, Psych: Negative for depression, anxiety, suicide ideation, homicidal ideation, and hallucinations, Allergy/Immunology: Negative for hives, rash, and allergies, Endocrine: Negative for neck swelling, polydipsia, polyuria, polyphagia, and marked weight changes, Hematologic/Lymphatic: Negative for swollen nodes, abnormal bleeding, and unusual bruising, 20:26 ENT: Positive for ear pain, rhinorrhea, sinus congestion, Exam: 20:26 Constitutional: This is a well developed, well nourished patient who is awake, alert, sada and in no acute distress. Head/Face: Normocephalic, atraumatic. Eyes: Pupils equal round and reactive to light, extra-ocular motions intact. Lids and lashes normal. Conjunctiva and sclera are non-icteric and not injected. Cornea within normal limits. Periorbital areas with no swelling, redness, or edema. Neck: Trachea midline, no thyromegaly or masses palpated, and no cervical lymphadenopathy. Supple, full range of motion without nuchal rigidity, or vertebral point tenderness. No Meningismus. Chest/axilla: Normal chest wall appearance and motion. Nontender with no deformity. No lesions are appreciated. Cardiovascular: Regular rate and rhythm with a normal S1 and S2. No gallops, murmurs, or rubs. Normal PMI, no JVD. No pulse deficits. Respiratory: Lungs have equal breath sounds bilaterally, clear to auscultation and percussion. No rales, rhonchi or wheezes noted. No increased work of breathing, no retractions or nasal flaring. Abdomen/GI: Soft, non-tender, with normal bowel sounds. No distension or tympany. No guarding or rebound. No evidence of tenderness throughout. Back: No spinal tenderness. No costovertebral tenderness. Full range of motion. Skin: Warm, dry with normal turgor. Normal color with no rashes, no lesions, and no evidence of cellulitis. MS/ Extremity: Pulses equal, no cyanosis. Neurovascular intact. Full, normal range of motion. Neuro: Awake and alert, GCS 15, oriented to person, place, time, and situation. Cranial nerves II-XII grossly intact. Motor strength 5/5 in all extremities. Sensory grossly intact. Cerebellar exam normal. Normal gait. Psych: Awake, alert, with orientation to person, place and time. Behavior, mood, and affect are within normal limits. 20:26 ENT: Posterior pharynx: Tonsils: bilaterally enlarged, with erythema, Uvula: normal, midline, swelling, is not appreciated, erythema, is not appreciated, exudate, is not appreciated, peritonsillar mass, is not appreciated, pooling of secretions, is not appreciated, 20:26 Musculoskeletal/extremity: DVT Exam: No signs of deep vein thrombosis. no pain, no swelling, no tenderness, negative Homans' sign noted on exam, no appreciated bluish discoloration, no erythema, no increased warmth, Vital Signs: 19:01 BP 104 / 82; Pulse 86; Resp 20; Temp 99.1(O); Pulse Ox 100% on R/A; Weight 56.7 kg; tm6 Height 5 ft. 7 in. ; Pain 8/10; 20:59 BP 107 / 76; Pulse 81; Resp 18 S; Temp 98.6(O); Pulse Ox 100% on R/A; lg3 19:01 Body Mass Index 19.58 (56.70 kg, 170.18 cm) tm6 19:01 Pain Scale: Adult tm6 MDM: 19:03 Patient medically screened. sada 20:28 Differential Diagnosis: Obstructed Airway Bronchitis Influenza Upper Respiratory sada Infection Sinusitis Pharyngitis Asthma Exacerbation Viral Syndrome Pneumonia. Data reviewed: vital signs, nurses notes, lab test result(s), Flu: negative. Consideration of Admission/Observation Escalation of care including admission/observation considered. I considered the following discharge prescriptions or medication management in the emergency department Medications were administered in the Emergency Department. See MAR. Test considered but Not performed: Labs: NO CBC, COMP MET. Historians other than the Patient: PT WELL INFORMED. Care significantly affected by the following chronic conditions: ANEMIA, SLE, ASTHMA, RA, FIBROMYALGIA. 03/08 19:04 Order name: Flu [facility] 03/08 19:04 Order name: Strep [facility] 03/08 19:04 Order name: SARS RAPID [facility] 03/08 20:21 Order name: Throat Culture EDAZ Administered Medications: 19:58 Not Given (Patient Refused): [id number] mg PO once lg3 20:58 Drug: Rocephin (cefTRIAXone) IM 1 grams IM once Route: IM; Site: left deltoid; lg3 20:58 Follow up: Response: No adverse reaction lg3 20:58 Drug: AZITHromycin PO 500 mg PO once Route: PO; lg3 20:58 Follow up: Response: No adverse reaction lg3 Disposition Summary: 03/08/24 20:32 Discharge Ordered Notes: Location: Home [facility] Problem: new sada Symptoms: have improved sada Condition: Stable sada Diagnosis - Acute upper respiratory infection, unspecified sada - Cough sada - Fever, unspecified sada Followup: sada - With: Private Physician - When: 2 - 3 days - Reason: Recheck today's complaints, Continuance of care, Re-evaluation by your physician Discharge Instructions: - Discharge Summary Sheet sada - Fever, Adult sada - Upper Respiratory Infection, Adult sada - Upper Respiratory Infection, Adult, [id number] sada - Cough, Adult, [id number] sada - Cough, Adult sada - Fever, Adult, [id number] sada Forms: - Medication Reconciliation Form sada - Antibiotic Education sada - Prescription Opioid Use asda - Patient Portal Instructions [facility] - Leadership Thank You Letter sada - Work release form lg3 - [facility] Prescriptions: - Catrachita-D 12 Hour 60-120 mg Oral Tablet Sustained Release 12 hr - take 1 tablet ORAL route every 12 hours As needed; 20 tablet; Refills: 0, sada Product Selection Permitted - Medrol (Nicolas) 4 mg Oral Tablets, Dose Pack - take 1 tablet ORAL route as directed - follow package instructions; 1 packet; sada Refills: 0, Product Selection Permitted - Guaifenesin AC 10-100 mg/5 mL Oral liquid - take 7.5 milliliter ORAL route every 6 hours As needed PRN COUGH; 150 sada milliliter; Refills: 0, Product Selection Permitted - Zithromax 500 mg Oral Tablet - take 1 tablet ORAL route once daily for 5 days; 5 tablet; Refills: 0, Product sada Selection Permitted Signatures: Dispatcher [employer] Ariel Clement MD MD cha Able, Lacie, RN RN lg3 [place] RN RN tm6
[2024-03-08] MEDS ORDERED: CEFTRIAXONE 1000 MG/VIAL ONE (20:42)
[2024-03-08] MEDS ORDERED: AZITHROMYCIN 250 MG TAB ONE (20:42)
[2024-03-08] MEDS ORDERED: LIDOCAINE 1% MPF 2 ML AMPULE ONE (20:42)
[2024-03-08 21:40] VITALS: O2SAT 100
[2024-03-08 21:42] VITALS: BP 107/76; TEMP 98.6
== END 2024-03-08 21:00 | disposition home or self-care (01) ==
LOC: ER 18:33
DX: J06.9 Acute upper respiratory infection, unspecified (principal); R05.9 Cough, unspecified; R50.9 Fever, unspecified; M06.9 Rheumatoid arthritis, unspecified; M79.7 Fibromyalgia; M32.9 Systemic lupus erythematosus, unspecified; J45.909 Unspecified asthma, uncomplicated; Z87.891 Personal history of nicotine dependence; Z79.899 Other long term (current) drug therapy; Z91.041 Radiographic dye allergy status; Z11.52 Encounter for screening for COVID-19
CPT/HCPCS: 87070; 36415; 87081; 87804 ×2; 96372; 99284; 87811; J0696

== ENCOUNTER 2024-05-31 22:31 | Emergency (ER) | payer OTHER ==
--- OUTSIDE RECORDS SUMMARY | 2024-05-31 22:42 | XMS REPORT | Continuity of Care Document ---
Author Name Unknown Address [address] [facility] [address] [place] [address] [facility] thconnect Address [address] [facility] [place] [address] Care Team Providers Care Casting Assistant Name Role Phone THAIS MARIN Primary Care Physician UnavailBANDAR Mckee Attending Clinician Unavailable LUANN DUMONT Attending Clinician Unavailable IRA SMITH Attending Clinician Unavailable Cari Martinez CPhT Attending Clinician Luann Silvestre Attending Clinician [phone] THAIS MARIN Attending Clinician Unavailable Ira Felix Attending Clinician +[phone] COOKIE MELGAR Attending Clinician Unavailable COOKIE MELGAR Attending Clinician Unavailable Cookie Orr Attending Clinician [phone] RY FORMAN Attending Clinician Unavailable Ry Forman MD Attending Clinician +[phone] Tawnya Maynard Attending Clinician [phone] Norma foot tender, Shandra Lucero Attending Clinician UnaLUDY Briggs Attending Clinician Unavail able Mauri [facility], [place]a Attending Clinician Unavailable Erki [facility], Mary Gudino Attending Clinician Unavail able Davidson foot tender, Amadeo Attending Clinician Unavailable Lab, [facility] Attending Clinician Unavailable Thais Foy Attending Clinician + [phone] Oziel foot tender, Domenica Attending Clinician Unavaila Sandra Matt Attending Clinician + [phone] Unknown, Attending Attending Clinician Unavailab SANDRA Sharp Attending Clinician Unavailab juan j Morse foot tender, Wade Attending Clinician Unavailable Doctor Unassigned, Carolina Attending Clinician U navailable Mauri [facility], [place]alea Attending Clinician Unavailable Thais Foy Attending Clinician + [phone] Lab, [facility] Db Attending Clinician Unavailable Ira Felix Attending Clinician [phone] Sacha Lowe MD Attending Clinician [phone] Juan Reece DO Attending Clinician [phone] Ludy Bridges MD Attending Clinician [phone] PAIGE MELISSA Attending Clinician Unavailable Paige Melissa MD Attending Clinician + [phone] LANCE GILMAN Attending Clinician UnavailLance Mcneal MD Attending Clinician +[phone] TAWNYA GAN Attending Clinician Unavailable TAWANA JEAN Attending Clinician Unavaila BOB Moore Attending Clinician UnavailBOB Elliott Attending Clinician Unavailmiguelito Montejo OT, Laurie A Attending Clinician Unavail able Bob Flores MD Attending Clinician [phone] BRONWYN WELLINGTON Attending Clinician Unavailable Tawnya Maynard Attending Clinician [phone] Bronwyn Wellington MD Attending Clinician +[phone] PETE OWENS Attending Clinician Unavail able Natali, [facility] Attending Clinician Unava ilable Pete Martinez Attending Clinician + JOCY MICHAEL Attending Clinician Unavailab BOGDAN Almeida Attending Clinician Unavailable Lorena Kirk MD Attending Clinician [phone] Jocy Michael DNP Attending Clinician [phone] [facility] Unavailable Juan Hernandez DO Attending Clinician [phone] Unruly Tran MD Attending Clinician +[phone] Doctor Unassigned, Carolina Attending Clinician U Irene Mtz MD Attending Clinician [phone] Miranda MARTINEZTawana Attending Clinician [phone] NURULY TRAN Attending Clinician Unavailab JESSICA Be Attending Clinician Unavailab Jessica Be DO Attending Clinician +[phone] IRENE MARI Attending Clinician Unavailable Unknown, Attending Attending Clinician Unavailab ROMULO Luna Attending Clinician Unavaila ROMULO Riggs Attending Clinician Unavailmarlene Buck, [facility] Attending Clinician UnavailRomulo Casas MD Attending Clinician + [phone] CARLITO MORAN Attending Clinician Unavailable Carlito Moran MD Attending Clinician [phone] [facility] Resident Attending Clinician U LORENA Curry Attending Clinician Unavailable Albino ALEXANDRE, Shy Lucero Attending Clinician + [phone] Bandar Baca MD Attending Clinician [phone] Jose Craig MD Attending Clinician [phone] Pcp-Lab Attending Clinician Unavailable Pgy2 Attending Clinician Unavailable Alissa Leon MD Attending Clinician +[phone] KEVIN PELLETIER Attending Clinician UnavailKEVIN Yu Attending Clinician Unavailmarlene [facility] Attending Clinician Unavailable GAURAV JOHN Attending Clinician Unavailable Gaurav John MD Attending Clinician +[phone] DEB BENAVIDEZ Attending Clinician Unavailab Deb Landa DO Attending Clinician + [phone] Mariajose Ramsey MD Attending Clinician +[phone] MARIAJOSE RAMSEY Attending Clinician Unavailable Clary Perez Attending Clinician +[phone] Vivien ALEXANDRE, Ese Piedra Attending Clinician UnavailSevero Burch MD Attending [facility] Attending Clinician Unavailable WILBUR WILSON Attending Clinician Unavailable WILBUR WILSON Attending Clinician Unavailable Lab, [facility] Attending Clinician Unavailable Wilbur Wilson MD Attending Clinician [phone], [facility] Attending Clinician Unavailab juan j Kumar, Patient Does Not Have A Attending Clinician Karon Wesley Attending Clinician [phone] SANDHYA ARAYA Attending Clinician Unavailable SANDHYA ARAYA Attending Clinician Unavailable Gillian Reno MD Attending Clinician +[phone] Winifred James NP Attending Clinician +[phone] Juan Torres MD Attending Clinician [phone] ARIANA CASTRO Attending Clinician Unavailable Ariana Leigh Attending Clinician [phone] Lab, [facility] Attending Clinician Unavailable Provider, [facility] Temp Attending Clinician Sharon vailable WILBERT WILLOUGHBY Attending Clinician Unavailab CM Beckham Attending Clinician Unavailable WINIFRED JAMES Attending Clinician Unavailable SULEIMAN LOERA Attending Clinician Unavailable Suleiman Connell Attending Clinician +[phone] LOUISE PRADO Attending Clinician Unavailable Wilbert Downey Attending Clinician + [phone] Louise Mcgovern Attending Clinician +[phone] Jamie Sanders Attending Clinician [phone] INOCENCIO Attending Clinician Unavailable JAMIE WALL Attending Clinician UnavailJAMIE López Attending Clinician UnavailSam John Attending Clinician +[phone] Demetrio ALEXANDRE, Lara Attending Clinician Unavailable Rolando GARG Juanevelia Harmon Attending Clinician +[phone] Radha Hawkins MD Attending Clinician +[phone] RADHA HAWKINS Attending Clinician UnavailSam Poe Attending Clinician Unavailable Luisa Logan Attending Clinician +[phone] LUISA MA Attending Clinician Unavailable Jessica Bob MD Attending Clinician +[phone] JESSICA BOB Attending Clinician Unavailable MANAN PÉREZ III Attending Clinician Unavaila Manan Fernandes Attending Clinician +[phone] BANDAR BACA Admitting Clinician Unavailable RY FORMAN Admitting Clinician Unavailable Ry Forman MD Admitting Clinician +[phone] PAIGE MELISSA Admitting Clinician Unavailable JESSICA TORRES Admitting Clinician Unavailab CARLITO Lewis Admitting Clinician Unavailable LORENA KIRK Admitting Clinician Unavailable Lorena Kirk MD Admitting Clinician +[phone] GAURAV JOHN Admitting Clinician Unavailable DEB BENAVIDEZ Admitting Clinician Unavailab MARIAJOSE James Admitting Clinician Unavailable Mariajose Ramsey MD Admitting Clinician +[phone] JUAN TORRES Admitting Clinician Unavailable Juan Torres MD Admitting Clinician +[phone] ARIANA CASTRO Admitting Clinician Unavailable INOCENCIO Admitting Clinician Unavailable RADHA HAWKINS Admitting Clinician UnavailSam Poe Admitting Clinician Unavailable LUISA MA Admitting Clinician Unavailable JESSICA BOB Admitting Clinician Unavailable MANAN PÉREZ III Admitting Clinician Unavailmarlene pizarro Payers Payer Name Policy Type Policy Number Effective Date Expirati on Date Source [facility] [id number] 2022 00:00:00 [place] [id number] 2022 00:00:00 MEDICAID PENDING PENDING 2022 00:00:00 [facility] [id number] 2020 00:00:00 Problems Condition Name Condition Details Condition Category Status Onset Date Resolution Date Last Treatment Date Treating Clinician Comments Source Obesity (BMI 30-39.9) Obesity (BMI 30-39.9) Disease Active 2023-06 00:00: 00 [facility] Change in bowel habits Change in bowel habits Disease Active 03-01 00:00: 00 [facility] Diarrhea, unspecifie d type Diarrhea, unspecifie d type Disease Active 03-01 00:00: 00 [facility] Blood in stool Blood in stool Disease Active 03-01 00:00: 00 [facility] Epigastric pain Epigastric pain Disease Active 03-01 00:00: 00 [facility] Dysphagia, unspecifie d type Dysphagia, unspecifie d type Disease Active 03-01 00:00: 00 [facility] Gastroesop hageal reflux disease, unspecifie d whether esophagiti s present Gastroesop hageal reflux disease, unspecifie d whether esophagiti s present Disease Active 03-01 00:00: 00 [facility] NSAID long-term use NSAID long-term use Disease Active 03-01 00:00: 00 [facility] Early satiety Early satiety Disease Active 03-01 00:00: 00 [facility] Flatulence , eructation , and gas pain Flatulence , eructation , and gas pain Disease Active 03-01 00:00: 00 [facility] NSAID long-term use NSAID long-term use Disease Active 03-01 00:00: 00 [facility] Intractabl e chronic migraine with aura with status migrainosu s Intractabl e chronic migraine with aura with status migrainosu s Disease Active 02-23 00:00: 00 [facility] NADYA (obstructi ve sleep apnea) NADYA (obstructi ve sleep apnea) Disease Active 2023-1 2-31 00:00: 00 [facility] Status migrainosu s Status migrainosu s Disease Active 2022-06 1-10 00:00: 00 [facility] Status post hysterosco py Status post hysterosco py Disease Active 2022-06 1-06 00:00: 00 [facility] Observed seizure-li ke activity Observed seizure-li ke activity Disease Active 2022-06 1-06 00:00: 00 [facility] Positive LAST (antinucle ar antibody) Positive LAST (antinucle ar antibody) Disease Active 2022-06 0-20 00:00: 00 [facility] 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 Disease Active 2022-06 020 00:00: 00 [facility] Abnormal uterine bleeding Abnormal uterine bleeding Disease Active 2022-06 0-16 00:00: 00 [facility] Multiparit y Multiparit y Disease Active 12-11 00:00: 00 [facility] History of arthritis History of arthritis Disease Active 2-21 00:00: 00 [facility] Fibrocysti c breast disease (FCBD), unspecifie d laterality Fibrocysti c breast disease (FCBD), unspecifie d laterality Disease Active 2021-06 0-14 00:00: 00 [facility] Overweight (BMI 25.0-29.9) Overweight (BMI 25.0-29.9) Disease Active 2 00:00: 00 [facility] Overweight Overweight Disease Active 2 00:00: 00 [facility] Anemia of mother in , antepartum Anemia of mother in , antepartum Disease Active - 00:00: 00 [facility] Depression , unspecifie d depression type Depression , unspecifie d depression type Disease Active 8 00:00: 00 [facility] UTI (urinary tract infection) during UTI (urinary tract infection) during Disease Resolve d 624 00:00: 00 2023-07-01 00:00:00 2023-07-01 15:40:26 [facility] Obesity in Obesity in Disease Resolve d 6- 00:00: 00 2023-07-01 00:00:00 2023-07-01 15:40:29 [facility] Previous delivery affecting , antepartum Previous delivery affecting , antepartum Disease Resolve d 6- 00:00: 00 2023-07-01 00:00:00 2023-07-01 15:40:34 Overview: Formattin g of this note might be different from the original. x4 will need follow up usg at 28-30week s for placenta [facility] Spontaneou s Spontaneou s Disease Resolve d - 00:00: 00 2023-05-11 00:00:00 2023-05-11 10:34:39 [facility] Molar Molar Disease Resolve d 7-17 00:00: 00 2023-05-11 00:00:00 2023-05-11 10:34:35 [facility] Susceptibl e to varicella (non-immun e), currently Susceptibl e to varicella (non-immun e), currently Disease Resolve d 12-14 00:00: 00 2023-05-11 00:00:00 2023-05-11 10:34:30 Overview: Formattin g of this note might be different from the original. Address pp [facility] Supervisio n of high-risk Supervisio n of high-risk Disease Resolve d 6- 00:00: 00 2023-05-11 00:00:00 2023-05-11 10:34:25 [facility] Ovarian cyst, left Ovarian cyst, left Disease Resolve d 5-04 00:00: 00 2023-05-11 00:00:00 2023-05-11 10:34:19 [facility] Miscarriag e Miscarriag e Disease Resolve d 4-08 00:00: 00 2022-10-22 00:00:00 2022-10-22 16:41:49 [facility] Maternal varicella, non-immune Maternal varicella, non-immune Disease Resolve d 2-23 00:00: 00 2022-10-22 00:00:00 2022-10-22 15:24:37 [facility] Heartburn in Heartburn in Disease Resolve d 2-21 00:00: 00 2022-10-22 00:00:00 2022-10-22 15:24:32 [facility] History of gestationa l hypertensi on History of gestationa l hypertensi on Disease Resolve d 2-21 00:00: 00 2022-10-22 00:00:00 2022-10-22 15:24:34 [facility] Hx of maternal blood transfusio n, currently Hx of maternal blood transfusio n, currently Disease Resolve d 2-21 00:00: 00 2022-10-22 00:00:00 2022-10-22 15:24:35 [facility] Nausea and vomiting, unspecifie d vomiting type Nausea and vomiting, unspecifie d vomiting type Disease Active 2-21 00:00: 00 2022-10-22 00:00:00 2022-10-22 15:24:38 [facility] Nausea and vomiting during Nausea and vomiting during Disease Resolve d 2-21 00:00: 00 2022-10-22 00:00:00 2022-10-22 15:24:38 [facility] Previous delivery affecting , antepartum Previous delivery affecting , antepartum Disease Resolve d 2- 00:00: 00 2022-10-22 00:00:00 2022-10-22 16:41:47 [facility] Obesity affecting Obesity affecting Disease Resolve d 2-01 00:00: 00 2022-10-22 00:00:00 2022-10-22 15:24:40 [facility] Anemia of mother in , antepartum Anemia of mother in , antepartum Disease Resolve d 3-02 00:00: 00 2022-10-22 00:00:00 2022-10-22 15:24:30 [facility] Anxiety and depression affecting Anxiety and depression affecting Disease Resolve d 2015-06 1-23 00:00: 00 2022-10-22 00:00:00 2022-10-22 16:41:52 [facility] Chronic anemia Chronic anemia Disease Resolve d 2-21 00:00: 00 2022-09-23 00:00:00 2022-09-23 20:28:40 [facility] Dysmenorrh ea Dysmenorrh ea Disease Resolve d 2021-06 0-29 00:00: 00 2022-08-11 00:00:00 2022-08-11 16:01:02 [facility] History of breast pain History of breast pain Disease Resolve d 2021-06 0-29 00:00: 00 2022-08-11 00:00:00 2022-08-11 16:01:11 [facility] Breakthrou gh bleeding on contracept debra patch Breakthrou gh bleeding on contracept debra patch Disease Resolve d 2021-06 0-29 00:00: 00 2022-08-11 00:00:00 2022-08-11 16:01:01 [facility] Irregular menstrual cycle Irregular menstrual cycle Disease Resolve d 2021-06 0-14 00:00: 00 2022-08-11 00:00:00 2022-08-11 16:01:09 [facility] Encounter for surveillan ce of transderma l patch hormonal contracept debra device Encounter for surveillan ce of transderma l patch hormonal contracept debra device Disease Resolve d 2021-06 0-13 00:00: 00 2022-08-11 00:00:00 2022-08-11 16:00:08 [facility] Need for HPV vaccinatio n Need for HPV vaccinatio n Disease Resolve d 1-07 00:00: 00 2022-08-11 00:00:00 2022-08-11 16:01:12 [facility] Blood transfusio n affecting Blood transfusio n affecting Disease Resolve d 3-01 00:00: 00 2022-08-11 00:00:00 2022-08-11 20:53:05 [facility] Anemia affecting in third trimester Anemia affecting in third trimester Disease Resolve d 2-23 00:00: 00 2022-08-11 00:00:00 2022-08-11 20:52:54 [facility] Pain of both breasts Pain of both breasts Disease Resolve d 2021-06 0-14 00:00: 00 2022-04-18 00:00:00 2022-04-18 12:17:21 [facility] Screening for malignant neoplasm of the cervix Screening for malignant neoplasm of the cervix Disease Resolve d 2021-06 0-13 00:00: 00 2022-04-18 00:00:00 2022-04-18 12:17:39 [facility] Itching of vagina Itching of vagina Disease Resolve d 5-24 00:00: 00 2022-04-18 00:00:00 2022-04-18 12:17:14 [facility] Dysuria Dysuria Disease Resolve d 5-24 00:00: 00 2022-04-18 00:00:00 2022-04-18 12:17:37 [facility] Class 2 obesity with body mass index (BMI) of 35.0 to 35.9 in adult, unspecifie d obesity type, unspecifie d whether serious comorbidit y present Class 2 obesity with body mass index (BMI) of 35.0 to 35.9 in adult, unspecifie d obesity type, unspecifie d whether serious comorbidit y present Disease Resolve d 1-07 00:00: 00 2022-04-18 00:00:00 2022-04-18 12:17:34 [facility] Screening examinatio n for STD (sexually transmitte d disease) Screening examinatio n for STD (sexually transmitte d disease) Disease Resolve d 2017-06 1-06 00:00: 00 2022-04-18 00:00:00 2022-04-18 12:17:28 [facility] BMI 35.0-35.9, adult BMI 35.0-35.9, adult Disease Resolve d 4-06 00:00: 00 2022-04-18 00:00:00 2022-04-18 12:17:24 [facility] Routine follow-up Routine follow-up Disease Resolve d 2017-06 0-12 00:00: 00 2018-04-26 00:00:00 2018-04-26 16:09:28 [facility] 39 weeks gestation of 39 weeks gestation of Disease Resolve d 9-17 00:00: 00 2018-04-01 00:00:00 2018-04-01 13:20:03 [facility] Group B streptococ kavon infection during Group B streptococ kavon infection during Disease Resolve d 9-05 00:00: 00 2018-04-01 00:00:00 2018-04-01 13:20:06 [facility] Supervisio n of high risk , antepartum Supervisio n of high risk , antepartum Disease Resolve d 0 7-17 00:00: 00 2018-04-01 00:00:00 2018-04-01 13:20:11 [facility] Back pain with right-side d sciatica Back pain with right-side d sciatica Disease Resolve d 7-03 00:00: 00 2018-04-01 00:00:00 2018-04-01 13:20:04 [facility] Urinary tract infection without hematuria, site unspecifie d Urinary tract infection without hematuria, site unspecifie d Disease Resolve d 0 2-21 00:00: 00 2018-04-01 00:00:00 2018-04-01 13:20:02 [facility] Multiparit y Multiparit y Disease Resolve d 2-01 00:00: 00 2018-04-01 00:00:00 2018-04-01 13:20:08 [facility] H/O miscarriag e, currently H/O miscarriag e, currently Disease Resolve d 2018-0 2-01 00:00: 00 2018-04-01 00:00:00 2018-04-01 13:20:07 [facility] Hypertensi on Hypertensi on Disease Resolve d 2018-03-08 00:00:00 2018-03-08 07:51:04 [facility] Back pain affecting , antepartum Back pain affecting , antepartum Disease Resolve d 2017-0 6-21 00:00: 00 2018-02-18 00:00:00 2018-02-18 10:57:31 [facility] History of 3 sections History of 3 sections Disease Resolve d 0 7-03 00:00: 00 2018-01-18 00:00:00 2018-01-18 14:54:25 [facility] Supervisio n of high risk in second trimester Supervisio n of high risk in second trimester Disease Resolve d 0 4-09 00:00: 00 2018-01-04 00:00:00 2018-01-04 10:26:26 [facility] Feeling light headed Feeling light headed Disease Resolve d 0 3-21 00:00: 00 2017-11-23 00:00:00 2017-11-23 15:29:15 [facility] Circumvall ate placenta during in third trimester, antepartum Circumvall ate placenta during in third trimester, antepartum Disease Resolve d 2016-0 2-02 00:00: 00 2017-11-23 00:00:00 2017-11-23 15:29:06 [facility] Subchorion ic hematoma, third trimester, fetus 1 Subchorion ic hematoma, third trimester, fetus 1 Disease Resolve d 2017-0 2-02 00:00: 00 2017-11-23 00:00:00 2017-11-23 15:29:07 [facility] Supervisio n of high risk , antepartum , first trimester Supervisio n of high risk , antepartum , first trimester Disease Resolve d 2017-0 3-13 00:00: 00 2017-09-27 00:00:00 2017-09-27 14:42:24 [facility] Supervisio n of high-risk of young primigravi da Supervisio n of high-risk of young primigravi da Disease Resolve d 2017-0 2-01 00:00: 00 2017-08-31 00:00:00 2017-08-31 07:52:24 [facility] Previous delivery affecting , antepartum Previous delivery affecting , antepartum Disease Resolve d 2017-0 4-06 00:00: 00 2017-07-22 00:00:00 2017-07-22 11:18:09 [facility] Anxiety during in third trimester, antepartum Anxiety during in third trimester, antepartum Disease Resolve d 2016-0 2-21 00:00: 00 2017-07-22 00:00:00 2017-07-22 11:18:05 [facility] High-risk , third trimester High-risk , third trimester Disease Resolve d 2016-0 2-02 00:00: 00 2017-07-22 00:00:00 2017-07-22 11:18:16 [facility] Anemia complicati ng , third trimester Anemia complicati ng , third trimester Disease Resolve d 2016-0 1-19 00:00: 00 2017-07-22 00:00:00 2017-07-22 11:17:53 [facility] Left sided sciatica Left sided sciatica Disease Resolve d 2015-06 00:00: 00 2017-07-22 00:00:00 2017-07-22 11:18:01 [facility] Numbness of left foot Numbness of left foot Disease Resolve d 2015-06 00:00: 00 2017-07-22 00:00:00 2017-07-22 11:17:53 [facility] Vaginal bleeding in , second trimester Vaginal bleeding in , second trimester Disease Resolve d 2015-06 00:00: 00 2017-07-22 00:00:00 2017-07-22 11:17:59 [facility] E. coli UTI E. coli UTI Disease Resolve d 2015-06 00:00: 00 2017-07-22 00:00:00 2017-07-22 11:17:35 [facility] UTI in , second trimester UTI in , second trimester Disease Resolve d 2015-06 00:00: 2017-07-22 00:00:00 2017-07-22 11:17:41 [facility] Echogenic bowel of fetus on ultrasound Echogenic bowel of fetus on ultrasound Disease Resolve d 2015-06 00:00: 00 2017-07-22 00:00:00 2017-07-22 11:17:23 [facility] Persistent cough Persistent cough Disease Resolve d 2015-06 00:00: 00 2017-07-22 00:00:00 2017-07-22 11:17:26 [facility] Incomplete ABx Course Incomplete ABx Course Disease Resolve d 9-16 00:00: 00 2017-07-22 00:00:00 2017-07-22 11:17:20 [facility] GBS carrier GBS carrier Disease Resolve d 02-11 00:00: 00 2017-07-22 00:00:00 2017-07-22 11:17:16 [facility] UTI in , first trimester UTI in , first trimester Disease Resolve d 02-11 00:00: 2017-07-22 00:00:00 2017-07-22 11:17:31 [facility] Nausea and vomiting during prior to 22 weeks gestation Nausea and vomiting during prior to 22 weeks gestation Disease Resolve d 02-10 00:00: 00 2017-07-22 00:00:00 2017-07-22 11:17:44 [facility] Vaginal bleeding in , first trimester Vaginal bleeding in , first trimester Disease Resolve d 02-10 00:00: 00 2017-07-22 00:00:00 2017-07-22 11:17:38 [facility] Threatened miscarriag e in early Threatened miscarriag e in early Disease Resolve d 02-10 00:00: 00 2017-07-22 00:00:00 2017-07-22 11:17:29 [facility] Previous section complicati ng Previous section complicati ng Disease Resolve d 02-10 00:00: 00 2017-07-22 00:00:00 2017-07-22 11:17:13 [facility] History of dilatation and curettage History of dilatation and curettage Disease Resolve d 02-10 00:00: 00 2017-07-22 00:00:00 2017-07-22 11:17:08 [facility] Anxiety and depression Anxiety and depression Disease Resolve d 02-10 00:00: 00 2017-07-22 00:00:00 2017-07-22 11:17:52 [facility] Nausea and vomiting during prior to 22 weeks gestation Nausea and vomiting during prior to 22 weeks gestation Disease Resolve d 02-10 00:00: 00 2017-07-22 00:00:00 2017-07-22 11:17:44 [facility] 33 weeks gestation of 33 weeks gestation of Disease Resolve d 3 00:00: 00 2016-08-25 00:00:00 2016-08-25 14:26:16 [facility] 32 weeks gestation of 32 weeks gestation of Disease Resolve d 2 00:00: 00 2016-08-25 00:00:00 2016-08-25 14:26:12 [facility] Anxiety during in second trimester, antepartum Anxiety during in second trimester, antepartum Disease Resolve d 2015-06 00:00: 00 2016-08-11 00:00:00 2016-08-11 09:11:24 [facility] Subchorion ic hematoma in second trimester Subchorion ic hematoma in second trimester Disease Resolve d 2015-06 00:00: 00 2016-08-11 00:00:00 2016-08-11 09:10:51 [facility] Vaginal bleeding Vaginal bleeding Disease Resolve d 2015-06 0 00:00: 00 2016-08-11 00:00:00 2016-08-11 09:10:25 [facility] High-risk , second trimester High-risk , second trimester Disease Resolve d 2015-06 00:00: 00 2016-07-23 00:00:00 2016-07-23 16:28:31 [facility] Circumvall ate placenta during in second trimester, antepartum Circumvall ate placenta during in second trimester, antepartum Disease Resolve d 2015-06 00:00: 00 2016-07-23 00:00:00 2016-07-23 16:27:27 [facility] Subchorion ic hematoma in first trimester Subchorion ic hematoma in first trimester Disease Resolve d 02-10 00:00: 00 2016-07-23 00:00:00 2016-07-23 16:28:07 [facility] Supervisio n of high-risk , first trimester Supervisio n of high-risk , first trimester Disease Resolve d 02-10 00:00: 00 2016-05-13 00:00:00 2016-05-13 15:40:56 [facility] Anxiety during in first trimester, antepartum Anxiety during in first trimester, antepartum Disease Resolve d 02-10 00:00: 00 2016-05-13 00:00:00 2016-05-13 15:41:37 [facility] Allergies, Adverse Reactions, Alerts Allergy Name Allergy Type Status Severity Reaction(s) Onset Date Inactive Date Treating Clinician Comments Source IODINATE D CONTRAST MEDIA Drug Class Active Anaphylaxis 01-19 00:00: 00 [facility] Iodinate d Contrast Media Propensi ty to adverse reaction s Active Anaphylaxis 01-19 00:00: 00 [facility] Iodine Drug Allergy Active Swelling 07-22 00:00: 00 [facility] Iodine Propensi ty to adverse reaction s Active Swelling 07-22 00:00: 00 [facility] IODINE DRUG INGREDI Active High Anaphylaxis 07-22 00:00: 00 [facility] Social History Social Habit Start Date Stop Date Quantity Comments Source ASSERTION 2022-11-09 00:00:00 [facility] Gender identity [facility] Alcoholic beverage intake 2024-05-25 00:00:00 2024-05-25 00:00:00 Ex-drinker (finding) [facility] Alcohol intake 2023-10-20 00:00:00 2023-10-20 00:00:00 Ex-drinker (finding) [facility] History of Social function 2023-04-26 00:00:00 2023-04-26 00:00:00 [facility] Tobacco use and exposure 2023-01-09 00:00:00 2023-01-09 00:00:00 Smokeless tobacco non-user [facility] Exposure to SARS-CoV-2 (event) 2022-12-01 00:00:00 2022-12-11 09:58:00 Not sure [facility] History SDOH Alcohol Frequency 2020-06-27 00:00:00 2020-06-27 00:00:00 3 [facility] History SDOH Alcohol Std Drinks 2020-06-27 00:00:00 2020-06-27 00:00:00 99 [facility] History SDOH Alcohol Binge 2020-06-27 00:00:00 2020-06-27 00:00:00 99 [facility] Alcohol Comment 2020-06-27 00:00:00 2020-06-27 00:00:00 on occassion, liquor and beer on occassions. [facility] Sex assigned at 1995 00:00:00 1995 00:00:00 [facility] Smoking Status Start Date Stop Date Source Never smoked tobacco [facility] Medications Ordered Medication Name Filled Medication Name Start Date Stop Date Current Medication? Ordering Clinician Indication Dosage Frequency Signature (SIG) Comments Components Source omeprazole 40 mg capsule 2023-06 00:00: 00 Yes [id number] 40mg Take 1 capsule by mouth in the morning and 1 capsule in the evening. [facility] DIAZEPAM 5 mg tablet 2023-06 00:00: 00 Yes [id number] 5mg TAKE 1 TABLET BY MOUTH 2 (TWO) TIMES DAILY NEEDED (SEVERE MIGRAINE). NO MORE THAN 2 DAYS A WEEK, 8 DAYS A MONTH. DO NOT TAKE WITH BUTALBITAL OR OTHER AIRLINE ATTENDANT DEPRESSANT S [facility] ondansetron (ZOFRAN (PF)) injection 4 mg 2023-06 21:30: 00 05-09 20:41 :00 No 4mg 4 mg, Slow IV Push, ONCE, On Wed05/09/24 at 1530, For 1 dose, PACU, Please give medication over 2-5 minutes. [facility] simethicone (GAS RELIEF (SIMETHICON E)) 40 mg/0.6 mL drops 2023-06 19:41: 00 05-09 22:50 :59 No PRN, Starting on Wed05/09/24 at 1341, Until Wed05/09/24 at 1650, Routine, Intra-op [facility] eletriptan 40 mg tablet 2023-06 00:00: 00 Yes [id number] 40mg Take 1 tablet by mouth SEE-INSTRU CTIONS. Take 1 tab at onset of migraine. May repeat in 2 hours if necessary. 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 For motion sickness, cruise ship [facility] diazePAM 5 mg tablet 2023-06 00:00: 00 05-11 00:00 :00 No [id number] 5mg Take 1 tablet by mouth 2 (two) times daily as needed (severe migraine). No more than 2 days a week, 8 days a month. Do not take with butalbital or other AIRLINE ATTENDANT depressant s [facility] peg-electro lyte soln 236-22.74-6 .74 -5.86 gram solution 03-01 00:00: 00 05-09 00:00 :00 No [id number] Take as directed before colonoscop y [facility] butalbital- acetaminoph en-caff 50-325-40 mg tablet 02-23 00:00: 00 Yes [id number] 1{tbl} Take 1 tablet by mouth every 4 (four) hours as needed (severe migraine). Use sparingly no more than 9 days per month [facility] methocarbam oL 750 mg tablet 02-23 00:00: 00 Yes [id number] 750mg Take 1 tablet by mouth 3 (three) times daily as needed for Other (muscle spasms). [facility] ketorolac 10 mg tablet 02-23 00:00: 00 Yes [id number] 10mg Take 1 tablet by mouth every 6 (six) hours as needed (migraine) . [facility] ubrogepant (UBRELVY) 100 mg tablet 02-23 00:00: 00 Yes [id number] 100mg Take 1 tablet by mouth at onset of migraine symptoms. May repeat in 2 hours if needed. Max of 2 tablets per 24 hours. [facility] proMETHazin e 25 mg tablet 02-23 00:00: 00 Yes [id number] 25mg Take 1 tablet by mouth every 4 (four) hours as needed for N/V alternatin g with Ondansetro n. [facility] diazePAM 2 mg tablet 02-23 00:00: 00 04-13 00:00 :00 No [id number] 2mg Take 1 tablet by mouth 2 (two) times daily as needed (severe migraine). No more than 2 days a week, 8 days a month. Do not take with butalbital or other AIRLINE ATTENDANT depressant s [facility] ciprofloxac in-dexameth asone 0.3-0.1 % otic drops 02-16 00:00: 00 02-24 04:59 :00 No [id number] 66904 4[drp] Place 4 Drops in left ear in the morning and 4 Drops in the evening. Do all this for 7 days. [facility] bromphenira mine-pseudo ephedrine-D M 2-30-10 mg/5 mL syrup 02-16 00:00: 00 02-22 04:59 :00 No [id number] 5mL Take 5 mL by mouth 4 (four) times daily as needed for Congestion /Allergies for up to 5 days. [facility] atogepant (QULIPTA) 60 mg Tab tablet 01-17 00:00: 00 Yes [id number] 60mg Take 1 tablet by mouth in the morning. [facility] ALPRAZolam (XANAX) 0.5 mg tablet 11-24 00:00: 00 11-25 04:59 :00 No [id number] .5mg Take 1 tablet by mouth once now for 1 dose. [facility] azelastine 137 mcg (0.1 %) nasal spray 11-16 00:00: 00 Yes [id number] 1{spray } USE 1 SPRAY IN EACH NOSTRIL IN THE MORNING AND 1 SPRAY IN THE EVENING DIRECTED [facility] ondansetron (ZOFRAN-ODT ) disintegrat ing tablet 8 mg 11-15 18:30: 00 11-15 17:43 :00 No [id number] 8mg 8 mg, Oral, ONCE, 1 dose, On Wed11/16/23 at 1330, Routine [facility] clostridium botulinum toxin (BOTOX) injection 155 Units 11-15 18:30: 00 11-15 17:44 :00 No [id number] 155U 155 Units, Intramuscu lar, ONCE, 1 dose, On Wed11/16/23 at 1330, Routine, 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 Restricted medication : IRA SMITH [facility] lidocaine 5 % (700 mg/patch) patch 11-15 00:00: 00 Yes [id number] 1{patch } Apply 1 Patch to area(s) in the morning and 1 Patch in the evening. [facility] ondansetron 8 mg disintegrat ing tablet 11-15 00:00: 00 Yes [id number] 8mg Take 1 tablet by mouth every 8 (eight) hours as needed for Nausea and Vomiting (N/V) (or migraine). [facility] ondansetron 4 mg disintegrat ing tablet 11-15 00:00: 00 11-17 00:00 :00 No [id number] 4mg Take 1 tablet by mouth every 8 (eight) hours as needed for Nausea and Vomiting (N/V). [facility] azelastine 137 mcg (0.1 %) nasal spray 10-31 00:00: 00 11-16 00:00 :00 No [id number] 1{spray } USE 1 SPRAY IN EACH NOSTRIL IN THE MORNING AND 1 SPRAY IN THE EVENING DIRECTED [facility] HYDROcodone -acetaminop hen (NORCO) 10-325 mg tablet 1 tablet 10-26 05:15: 00 10-26 04:19 :00 No 1{tbl} 1 tablet, Oral, ONCE NOW, 1 dose, On Wed10/27/23 at 0015, Routine [facility] acetaminoph en-codeine 300-30 mg tablet 10-26 00:00: 00 11-03 04:59 :00 No [id number] 1{tbl} Take 1 tablet by mouth every 4 (four) hours as needed for Pain (scale 7-10) for up to 7 days. Indication s: acute pain [facility] minoxidiL 2.5 mg tablet 10-19 00:00: 00 Yes [id number] 2.5mg Take 1 tablet by mouth in the morning. [facility] hydroxychlo roquine (PLAQUENIL) 200 mg tablet 08 00:00: 00 Yes [id number] 300mg Take 1.5 tablets by mouth in the morning. [facility] azelastine 137 mcg (0.1 %) nasal spray 09-15 00:00: 00 10-31 00:00 :00 No [id number] 1{spray } USE 1 SPRAY IN EACH NOSTRIL IN THE MORNING AND 1 SPRAY IN THE EVENING DIRECTED [facility] DULoxetine 30 mg capsule 09-14 00:00: 00 Yes [id number] 30mg Take 1 capsule by mouth in the morning and 1 capsule in the evening. First week, take only 1 capsule in morning, and then twice daily thereafter . [facility] minoxidiL 2.5 mg tablet 09-14 00:00: 00 10-19 00:00 :00 No [id number] 2.5mg Take 1 tablet by mouth in the morning. [facility] methocarbam oL 750 mg tablet 08-29 00:00: 02-23 00:00 :00 No 750mg Take 1 tablet by mouth 3 (three) times daily as needed for Other (muscle spasms). [facility] butalbital- acetaminoph en-caff 50-325-40 mg tablet 08-25 00:00: 00 02-23 00:00 :00 No [id number] 1{tbl} Take 1 tablet by mouth every 4 (four) hours as needed (severe migraine). Use sparingly no more than 9 days per month [facility] nortriptyli ne 50 mg capsule 08-16 00:00: 00 Yes [id number] 1-2 po QHS [facility] sumatriptan (IMITREX) 100 mg tablet 08-16 00:00: 00 Yes [id number] 100mg Take 1 tablet by mouth as needed for Migraine. May repeat in 2h if headache remains [facility] ondansetron 4 mg disintegrat ing tablet 08-16 00:00: 00 11-15 00:00 :00 No [id number] 4mg Take 1 tablet by mouth every 8 (eight) hours as needed for Nausea and Vomiting (N/V). [facility] butalbital- acetaminoph en-caff 50-325-40 mg tablet 08-16 00:00: 00 08-25 00:00 :00 No [id number] 1{tbl} Take 1 tablet by mouth every 4 (four) hours as needed (severe migraine). Use sparingly no more than 9 days per month [facility] azelastine 137 mcg (0.1 %) nasal spray 07-21 00:00: 00 09-15 00:00 :00 No [id number] 1{spray } USE 1 SPRAY IN EACH NOSTRIL IN THE MORNING AND 1 SPRAY IN THE EVENING DIRECTED [facility] gabapentin 300 mg capsule 07-07 00:00: 00 Yes [id number] 300mg Take 1 capsule by mouth 3 (three) times daily as needed (pain). [facility] methocarbam oL 750 mg tablet 07-06 00:00: 00 08-29 00:00 :00 No 750mg Take 1 tablet by mouth 3 (three) times daily as needed for Other (muscle spasms). [facility] Nitrofurant oin&Nit. Macrocryst (MACROBID) 100 mg capsule 07-05 00:00: 00 07-16 05:59 :00 No [id number] 100mg Take 1 capsule by mouth in the morning and 1 capsule in the evening. Do all this for 10 days. [facility] metroNIDAZO LE 500 mg tablet 07-02 00:00: 00 07-03 05:59 :00 No [id number] 2000mg Take 4 tablets by mouth once now for 1 dose. [facility] HYDROcodone -acetaminop hen 5-325 mg tablet 06-23 00:00: 00 07-01 05:59 :00 No [id number] 1{tbl} Take 1 tablet by mouth every 6 (six) hours as needed for Pain (scale 7-10) for up to 7 days. Indication s: acute pain [facility] ondansetron (ZOFRAN-ODT ) disintegrat ing tablet 4 mg 06-22 01:45: 00 06-22 00:58 :00 No 4mg 4 mg, Oral, ONCE, 1 dose, On Wed06/21/23 at 1945, Routine [facility] HYDROcodone -acetaminop hen (NORCO 5) 5-325 mg tablet 1 tablet 06-22:30: 00 06-22 00:53 :00 No 1{tbl} 1 tablet, Oral, ONCE, 1 dose, On Wed06/21/23 at 1930, Routine [facility] methocarbam oL (ROBAXIN) tablet 1,000 mg 06-22 01:00: 00 06-22 00:58 :00 No 1000mg 1,000 mg, Oral, ONCE, 1 dose, On Wed06/21/23 at 1900, DOUGLAS [facility] traMADoL 50 mg tablet 06-21 00:00: 00 06-29 05:59 :00 No [id number] 50mg Take 1 tablet by mouth every 6 (six) hours as needed for Pain (scale 1-3) for up to 7 days. Indication s: acute pain [facility] ondansetron (ZOFRAN-ODT ) disintegrat ing tablet 8 mg 2022-06 03:30: 00 06-17 02:39 :00 No [id number] 8mg [facility] methylPREDN ISolone sod succ (SOLU-MEDRO L (PF)) injection 40 mg 2022-06 03:30: 00 06-17 02:46 :00 No [id number] 40mg [facility] ketorolac (TORADOL) injection 60 mg 2022-06 03:15: 00 06-17 02:47 :00 No [id number] 60mg [facility] methylpredn isolone sod succ (SOLU-MEDRO L) injection 125 mg 2022-06 03:15: 00 06-17 02:32 :47 No [id number] 125mg [facility] albuterol (VENTOLIN) inhaler 2 Puff 2022-06 03:15: 00 06-17 02:40 :00 No [id number] 2{puff} [facility] albuterol 90 mcg/actuati on inhaler 2022-06 00:00: 00 Yes [id number] 2{puff} Inhale 2 Puffs every 6 (six) hours as needed for Wheezing or Shortness of Breath. [facility] benzonatate 100 mg capsule 2022-06 00:00: 00 Yes [id number] 200mg Take 2 capsules by mouth every 8 (eight) hours as needed for Cough. [facility] amoxicillin -clavulanat e (AUGMENTIN) 875-125 mg per tablet 2022-06 00:00: 00 06-27 05:59 :00 No [id number] 1{tbl} Take 1 tablet by mouth in the morning and 1 tablet in the evening. Do all this for 10 days. [facility] predniSONE 20 mg tablet 2022-06 00:00: 00 06-22 05:59 :00 No [id number] 40mg Take 2 tablets by mouth in the morning for 5 days. [facility] bromphenira mine-pseudo ephedrine-D M (BROMFED DM) 2-30-10 mg/5 mL syrup 2022-06 00:00: 00 01-20 00:00 :00 No [id number] 5mL Take 5 mL by mouth 4 (four) times daily as needed for Cold symptoms. [facility] azelastine 137 mcg (0.1 %) nasal spray 2022-06 00:00: 00 07-21 00:00 :00 No [id number] 1{spray } Use 1 Union in each nostril in the morning and 1 Union in the evening. Use in each nostril as directed [facility] amoxicillin -clavulanat e (AUGMENTIN) 875-125 mg per tablet 2022-06 2 00:00: 00 06-16 00:00 :00 No [id number] 1{tbl} Take 1 tablet by mouth in the morning and 1 tablet in the evening. [facility] topiramate 25 mg tablet 2022-06 1-16 00:00: 00 01-17 00:00 :00 No [id number] 25mg Take 1 tablet by mouth in the morning and 1 tablet in the evening. [facility] amitriptyli ne 25 mg tablet 2022-06 00:00: 00 08-16 00:00 :00 No [id number] 50mg Take 2 tablets by mouth at bedtime. [facility] SUMAtriptan (IMITREX) 50 mg tablet 2022-06 00:00: 00 08-16 00:00 :00 No [id number] 50mg Take 1 tablet by mouth as needed for Migraine. [facility] hydroxychlo roquine (PLAQUENIL) 200 mg tablet 2022-06 00:00: 00 09-15 00:00 :00 No [id number] 300mg Take 1.5 tablets by mouth in the morning. [facility] Methylpredn isolone (MEDROL) tablet 4 [...] Wed05/03/23 at 1700, Routine [Order 2 End] [facility] ferrous sulfate 325 mg (65 mg iron) tablet 2022-06 17:08: 54 01-20 00:00 :00 No 325mg Take 1 tablet by mouth in the morning. [facility] SUMAtriptan (IMITREX) tablet 100 mg 2022-06 16:45: 00 05-01 16:41 :00 No 100mg 100 mg, Oral, ONCE, 1 dose, On 05/01/23 at 1045, Routine [facility] amitriptyli ne (ELAVIL) tablet 25 mg 2022-06 03:00: 00 Yes 25mg 25 mg, Oral, QHS, First dose (after last modificati on) on Wed04/30/23 at 2100, Until Discontinu ed, Routine [facility] topiramate (TOPAMAX) tablet 25 mg 2022-06 03:00: 00 05-07 02:59 :00 No 25mg 25 mg, Oral, QHS, 6 doses, First dose (after last modificati on) on Wed04/30/23 at 2100, Last dose on Wed05/05/23 at 2100, Routine
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 Restricted medication : LORENA KIRK [facility] proCHLORper azine 5 mg tablet 2022-06 00:00: 00 07-31 05:59 :00 No [id number] 10mg Take 2 tablets by mouth every 6 (six) hours as needed for Nausea and Vomiting (N/V) for up to 90 days. [facility] topiramate 25 mg tablet 2022-06 00:00: 00 05-06 00:00 :00 No [id number] 25mg Take 1 tablet by mouth in the morning and 1 tablet in the evening. Do all this for 90 days. [facility] enoxaparin (LOVENOX) injection 40 mg 2022-06 23:00: 00 Yes 40mg 40 mg, Subcutaneo us, DAILY AT 1700, First dose on Wed04/30/23 at 1700, Until Discontinu ed, Routine [facility] SUMAtriptan (IMITREX) tablet 100 mg 2022-06 20:30: 00 04-30 20:40 :00 No 100mg 100 mg, Oral, ONCE, 1 dose, On Wed04/30/23 at 1430, Routine [facility] topiramate (TOPAMAX) tablet 25 mg 2022-06 19:45: 00 04-30 20:47 :23 No 25mg 25 mg, Oral, DAILY, 7 doses, First dose on Wed04/30/23 at 1345, Last dose on Wed05/06/23 at 0900, Routine
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 Restricted medication : LORENA KIRK [facility] ketorolac (TORADOL) injection 30 mg 2022-06 15:30: 00 04-30 16:07 :00 No 30mg 30 mg, Slow IV Push, ONCE NOW, 1 dose, On Wed04/30/23 at 0930, DOUGLAS [facility] diphenhydrA MINE (BENADRYL) injection 25 mg 2022-06 15:28: 20 Yes 25mg 25 mg, Intravenou s, Q8HPRN, Starting on Wed04/30/23 at 0928, Until Discontinu ed, Routine, Nausea and Vomiting (N/V), Headache [facility] proCHLORper azine (COMPAZINE) 10 mg in NaCl 0.9% (NS) piggyback 2022-06 15:20: 49 Yes 10mg 10 mg, IV Piggyback, at 100 mL/hr Administer over 30 Minutes, Q8HPRN, Starting on Wed04/30/23 at 0920, Until Discontinu ed, Routine, Nausea and Vomiting (N/V) [facility] acetaminoph en (TYLENOL) tablet 650 mg 2022-06 15:15: 23 Yes 650mg 650 mg, Oral, Q6HPRN, Starting on Wed04/30/23 at 0915, Until Discontinu ed, Routine, Pain (scale 1-3), Pain (scale 4-6) [facility] NaCl 0.9% (NS) IV infusion 1,000 mL 2022-06 14:15: 00 Yes 1000mL at 75 mL/hr, IV Infusion, CONTINUOUS , Starting on Wed04/30/23 at 0815, Until Discontinu ed, Routine [facility] acetaminoph en-codeine (TYLENOL #3) 300-30 mg tablet 1 tablet 2022-06 05:02: 17 Yes 1{tbl} 1 tablet, Oral, Q4HPRN, Starting on Trista 04/29/23 at 2302, Until Discontinu ed, Routine, Pain (scale 4-6) [facility] gadobenate dimeglumine (MULTIHANCE -20 mL) injection 18.72 mL 2022-06 03:30: 00 04-30 03:30 :00 No [id number] .2mL/kg 18.72 mL (0.2 mL/kg ?93.6 kg), Intravenou s, ONCE, 1 dose, On Wed04/29/23 at 2130, Routine [facility] amitriptyli ne (ELAVIL) tablet 15 mg 2022-06 03:00: 00 04-30 17:22 :47 No 15mg 15 mg, Oral, QHS, First dose on Wed04/29/23 at 2100, Until Discontinu ed, Routine [facility] HYDROcodone -acetaminop hen (NORCO 5) 5-325 mg tablet 1 tablet 2022-06 01:00: 00 04-30 00:13 :00 No 1{tbl} 1 tablet, Oral, ONCE, 1 dose, On Wed04/29/23 at 1900, Routine [facility] amitriptyli ne 25 mg tablet 2022-06 00:00: 00 05-06 00:00 :00 No [id number] 25mg Take 1 tablet by mouth at bedtime. [facility] SUMAtriptan (IMITREX) 50 mg tablet 2022-06 00:00: 00 05-06 00:00 :00 No [id number] 50mg Take 1 tablet by mouth as needed for Migraine for up to 9 doses. [facility] topiramate 25 mg tablet 2022-06 00:00: 00 05-01 00:00 :00 No [id number] Take 1 tablet by mouth at bedtime for 6 days, THEN 1 tablet 2 (two) times daily for 84 days. [facility] magnesium oxide 420 mg Tab 2022-06 00:00: 00 04-29 00:00 :00 No [id number] 400mg Take 400 mg by mouth in the morning. [facility] LORazepam (ATIVAN) tablet 0.5 mg 2022-06 22:30: 00 04-30 02:13 :00 No .5mg 0.5 mg, Oral, ONCE, 1 dose, On Trista 04/29/23 at 1630, Routine [facility] ibuprofen (IBU) tablet 600 mg 2022-06 16:13: 00 04-29 22:19 :36 No 600mg 600 mg, Oral, Q6HPRN, Starting on Wed04/29/23 at 1013, Until Wed04/29/23 at 1619, Routine, Headache, 1-10 pain [facility] magnesium oxide 400 mg (241.3 mg magnesium) tablet 2022-06 00:00: 00 Yes [id number] 400mg Take 1 tablet by mouth in the morning. [facility] ibuprofen 600 mg tablet 2022-06 00:00: 00 01-20 00:00 :00 No [id number] 100 600mg Take 1 tablet by mouth every 6 (six) hours as needed for Pain (scale 1-3). [facility] amitriptyli ne 10 mg tablet 2022-06 00:00: 00 04-30 00:00 :00 No [id number] 15mg Take 1.5 tablets by mouth at bedtime. [facility] amitriptyli ne 10 mg tablet 2022-06 00:00: 00 04-29 00:00 :00 No [id number] 10mg Take 1 tablet by mouth at bedtime. [facility] benzocaine- menthoL (CEPACOL SORE THROAT (RHONDA-MEN)) lozenge 1 Lozenge 2022-06 18:38: 10 Yes 1{lozen ge} 1 Lozenge, Oral, Q4HPRN, Starting on Wed04/28/23 at 1238, Until Discontinu ed, Routine, Sore throat [facility] ondansetron (ZOFRAN (PF)) injection 4 mg 2022-06 16:25: 19 Yes 4mg 4 mg, Slow IV Push, Q6HPRN, Nausea and Vomiting (N/V), Starting on Wed04/28/23 at 1025
Do ses of ondansetro n 16 mg and above need to be administer ed via IV piggyback. For Dose >=24mg ECG monitoring is advisable.
[facility] ketorolac (TORADOL) injection 30 mg 2022-06 00:30: 00 04-28 15:23 :00 No 30mg 30 mg, Slow IV Push, Q8H ABX, 3 doses, First dose on Wed04/27/23 at 1830, Last dose on Wed04/28/23 at 1030, Routine [facility] magnesium sulfate in water 2 gram/50 mL (4 %) infusion 2 g 2022-06 00:15: 00 04-28 01:11 :00 No 2g 2 g, IV Piggyback, Administer over 60 Minutes, ONCE, 1 dose, On Wed04/27/23 at 1815, Routine [facility] ondansetron (ZOFRAN (PF)) injection 4 mg 2022-06 16:30: 00 04-27 15:46 :00 No 4mg 4 mg, Slow IV Push, ONCE, On Wed04/27/23 at 1030, For 1 dose
Do ses of ondansetro n 16 mg and above need to be administer ed via IV piggyback. For Dose >=24mg ECG monitoring is advisable.
[facility] amitriptyli ne (ELAVIL) tablet 10 mg 2022-06 03:00: 00 04-29 22:27 :33 No 10mg 10 mg, Oral, QHS, First dose on Wed04/26/23 at 2100, Until Discontinu ed, Routine [facility] magnesium sulfate in water 4 gram/50 mL (8 %) IV Piggyback 4 g 2022-06 23:30: 00 04-27 06:00 :00 No 4g 4 g, IV Piggyback, at 25 mL/hr Administer over 120 Minutes, ONCE, 1 dose, On Wed04/26/23 at 1730, Routine [facility] acetaminoph en (TYLENOL) tablet 500 mg 2022-06 23:15: 55 04-29 22:27 :33 No 500mg 500 mg, Oral, Q6HPRN, Starting on Wed04/26/23 at 1715, Until Wed04/29/23 at 1627, Routine, Pain (scale 4-6) [facility] ibuprofen (IBU) tablet 600 mg 2022-06 23:15: 43 04-27 23:24 :39 No 600mg 600 mg, Oral, Q6HPRN, Starting on Wed04/26/23 at 1715, Until Wed04/27/23 at 1724, Routine, Pain (scale 1-3) [facility] valproate (DEPACON) 250 mg in D5W piggyback 2022-06 21:30: 00 04-27 19:59 :00 No 250mg 250 mg, IV Piggyback, TID, 3 doses, First dose on Wed04/26/23 at 1530, Last dose on Wed04/27/23 at 0800, Administer over 60 Minutes, 100 mL [facility] magnesium oxide (MAG-OX 400) tablet 400 mg 2022-06 20:45: 00 04-29 22:27 :33 No 400mg 400 mg, Oral, DAILY, First dose on Wed04/26/23 at 1445, Until Discontinu ed, Routine [facility] diphenhydrA MINE (BENADRYL) injection 25 mg 2022-06 20:00: 00 04-26 19:18 :00 No 25mg 25 mg, Intravenou s, ONCE, 1 dose, On Wed04/26/23 at 1400, Routine [facility] ibuprofen (IBU) tablet 800 mg 2022-06 19:15: 00 04-26 18:30 :00 No 800mg 800 mg, Oral, ONCE, 1 dose, On Wed04/26/23 at 1315, Routine [facility] HYDROcodone -acetaminop hen (NORCO 5) 5-325 mg tablet 1 tablet 2022-06 14:30: 00 04-26 16:00 :00 No 1{tbl} 1 tablet, Oral, ONCE, 1 dose, On Wed04/26/23 at 0830, Routine, PACU [facility] proMETHazin e (PHENERGAN) 12.5 mg in NS 50 mL IV piggyback (CNR) 2022-06 14:19: 50 04-26 20:10 :00 No 12.5mg 12.5 mg, IV Piggyback, at 200 mL/hr Administer over 15 Minutes, PRN, 1 dose, Starting on Wed04/26/23 at 0819, Until Wed04/26/23 at 1410, Routine, Nausea and Vomiting (N/V), PACU [facility] ferrous sulfate 325 mg (65 mg iron) tablet 2022-06 08:55: 33 Yes 325mg Take 1 tablet by mouth in the morning. [facility] hydroxychlo roquine 200 mg tablet 2022-06 00:00: 00 05-04 00:00 :00 No [id number] 200mg Take 1 tablet by mouth in the morning. [facility] ferrous sulfate 325 mg (65 mg iron) tablet 2022-06 16:56: 08 Yes 325mg Take 1 tablet by mouth in the morning. [facility] ondansetron 4 mg disintegrat ing tablet 2022-06 00:00: 00 08-16 00:00 :00 No [id number] 4mg Take 1 tablet by mouth every 8 (eight) hours as needed for Nausea and Vomiting (N/V). [facility] predniSONE 5 mg tablet 2022-06 00:00: 00 04-25 04:59 :00 No [id number] Take 3 tablets by mouth daily for 5 days, THEN 2 tablets daily for 5 days, THEN 1 tablet daily for 5 days. [facility] ferrous sulfate 325 mg (65 mg iron) tablet 2022-06 14:04: 54 Yes 325mg Take 1 tablet by mouth in the morning. [facility] norethindro ne 0.35 mg tablet 2022-0616 00:00: 00 07-05 05:59 :00 No [id number] 100 .35mg Take 1 tablet by mouth in the morning for 90 days. [facility] medroxyPROG ESTERone (PROVERA) 5 mg tablet 2022-06 016 00:00: 00 04-13 04:59 :00 No [id number] 100 5mg Take 1 tablet by mouth in the morning for 7 days. [facility] OZEMPIC 0.25 mg or 0.5 mg (2 mg/3 mL) PnIj 03-17 00:00: 00 01-20 00:00 :00 No INJECT 0.5 MG SUBCUTANEO USLY WEEKLY. [facility] metroNIDAZO LE 500 mg tablet 03-17 00:00: 00 04-07 00:00 :00 No TAKE ONE (1) TABLET(S) BY MOUTH EVERY TWELVE HOURS FOR 7 DAYS. [facility] ciprofloxac in HCl 500 mg tablet 03-17 00:00: 00 04-07 00:00 :00 No TAKE ONE (1) TABLET(S) BY MOUTH EVERY TWELVE HOURS FOR SEVEN DAYS. [facility] phentermine 37.5 mg tablet 03-12 00:00: 00 01-20 00:00 :00 No 37.5mg Take 1 tablet by mouth in the morning. [facility] norelgestro min-ethinyl estradiol (XULANE) 150-35 mcg/24 hr patch 02-01 00:00: 00 Yes [id number] 1{patch } Apply 1 Patch to skin weekly. [facility] ondansetron (ZOFRAN (PF)) injection 4 mg 01-26 02:45: 00 01-26 02:53 :00 No 4mg 4 mg, Slow IV Push, ONCE, 1 dose, On Wed01/25/23 at 2145, DOUGLAS [facility] morpHINE (4 mg/mL) injection 4 mg 01-26 02:45: 00 01-26 02:53 :00 No 4mg 4 mg, Slow IV Push, ONCE, 1 dose, On Wed01/25/23 at 2145, STAT [facility] gabapentin (NEURONTIN) capsule 300 mg 01-09 15:00: 00 Yes 300mg 300 mg, Oral, TID, First dose on 01/09/23 at 1000, Until Discontinu ed, Routine [facility] ibuprofen (IBU) tablet 600 mg 01-09 13:45: 00 Yes 600mg 600 mg, Oral, Q6H, First dose (after last modificati on) on 01/09/23 at 0845, Until Discontinu ed, Routine [facility] oxyCODONE immediate release tablet 5 mg 01-09 07:00: 00 01-09 06:30 :00 No 5mg 5 mg, Oral, ONCE, 1 dose, On 01/09/23 at 0200, Routine
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 Restricted medication : ADC OBGYN [facility] proMETHazin e (PHENERGAN) 25 mg in NaCl 0.9% (NS) 50 mL IV piggyback 01-09 06:04: 38 Yes 25mg 25 mg, IV Piggyback, Q4HPRN, Starting on 01/09/23 at 0104, Until Discontinu ed, Routine, Nausea and Vomiting (N/V) [facility] lactated ringers IV infusion 1,000 mL 01-09 05:45: 00 Yes 1000mL at 100 mL/hr, 1,000 mL, IV Infusion, CONTINUOUS , Starting on 01/09/23 at 0045, Until Discontinu ed, Routine, PACU [facility] ondansetron (ZOFRAN (PF)) injection 4 mg 01-09 05:40: 11 Yes 4mg 4 mg, Slow IV Push, Q6HPRN, Starting on 01/09/23 at 0040, Until Discontinu ed, Routine, Nausea and Vomiting (N/V) [facility] FENTanyl PF (SUBLIMAZE (PF)) injection 25 mcg 01-09 04:09: 38 01-09 04:36 :00 No 25ug 25 mcg, Slow IV Push, Q5MIN PRN, 4 doses, Starting on Wed01/08/23 at 2309, Until Wed01/08/23 at 2336, Routine, Pain (scale 4-6), PACU [facility] HYDROmorphO ne (DILAUDID) injection 0.2 mg 01-09 04:09: 38 01-09 05:30 :19 No .2mg 0.2 mg, Slow IV Push, Q5MIN PRN, 10 doses, Starting on Wed01/08/23 at 2309, Until Wed01/09/23 at 0030, Routine, Pain (scale 7-10), PACU
Us e approved by (Faculty): PACU USE -ANESTHESI A SERVICE-HY DROMORPHON E INJECTIONS [facility] HYDROcodone -acetaminop hen (NORCO 5) 5-325 mg tablet 2 tablet 01-09 04:05: 17 Yes 2{tbl} 2 tablet, Oral, Q6HPRN, Starting on Wed01/08/23 at 2305, Until Discontinu ed, Routine, Pain (scale 7-10) [facility] bupivacaine (preserv free) (SENSORCAIN E MPF) 0.25 % (2.5 mg/mL) injection 01-09 02:15: 00 Yes PRN, Starting on Wed01/08/23 at 2115, Until Discontinu ed, Routine, Intra-op [facility] sodium chloride 0.9 % irrigation solution 01-09 00:50: 00 Yes PRN, Starting on Wed01/08/23 at 1950, Until Discontinu ed, Intra-op [facility] doxycycline hyclate (Vibramycin ) capsule 100 mg 01-09 00:03: 07 01-09 00:14 :00 No 100mg 100 mg, Oral, O.R. HOLDING ONCE, 1 dose, Starting on Wed01/08/23 at 1903, Until Wed01/08/23 at 1914, DOUGLAS, Surgery/Pr ocedure
Reason for Anti-Infec tive: Surgical Prophylaxi s
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
Duration of therapy: within 24 hours of surgery [facility] ibuprofen 800 mg tablet 01-09 00:00: 00 04-27 00:00 :00 No [id number] 800mg Take 1 tablet by mouth every 8 (eight) hours as needed (Pain). [facility] HYDROcodone -acetaminop hen 5-325 mg tablet 01-09 00:00: 00 04-07 00:00 :00 No [id number] 1{tbl} Take 1 tablet by mouth every 6 (six) hours as needed (Pain). Indication s: acute pain [facility] NaCl 0.9% (NS) IV infusion 1,000 mL 01-08 20:15: 00 01-09 05:41 :08 No 1000mL at 150 mL/hr, Intravenou s, CONTINUOUS , Starting on Wed01/08/23 at 1515, Until Wed01/09/23 at 0041, DOUGLAS [facility] FENTanyl PF (SUBLIMAZE (PF)) injection 25 mcg 01-08 20:00: 00 01-08 19:18 :00 No 25ug 25 mcg, Slow IV Push, ONCE, 1 dose, On Wed01/08/23 at 1500, Routine [facility] diphenhydrA MINE (BENADRYL) injection 25 mg 01-08 16:53: 00 01-08 16:46 :00 No 25mg 25 mg, Slow IV Push, ONCE, 1 dose, On Wed01/08/23 at 1200, STAT [facility] NaCl 0.9% (NS) bolus infusion 1,000 mL 01-08 16:45: 00 01-08 19:12 :00 No 1000mL at 999 mL/hr, 1,000 mL, IV Infusion, ONCE, 1 dose, On Wed01/08/23 at 1145, DOUGLAS [facility] morpHINE (4 mg/mL) injection 4 mg 01-08 16:00: 00 01-08 16:43 :00 No 4mg 4 mg, Slow IV Push, ONCE, 1 dose, On Wed01/08/23 at 1100, STAT [facility] ondansetron (ZOFRAN (PF)) injection 4 mg 01-08 16:00: 00 01-08 16:43 :00 No 4mg 4 mg, Slow IV Push, ONCE, 1 dose, On Wed01/08/23 at 1100, DOUGLAS [facility] NaCl 0.9% (NS) bolus infusion 1,000 mL 01-02 04:45: 00 01-02 05:51 :00 No 1000mL at 999 mL/hr, 1,000 mL, IV Piggyback, ONCE, 1 dose, On Wed01/01/23 at 2345, STAT [facility] ondansetron 4 mg disintegrat ing tablet 01-02 00:00: 00 04-09 00:00 :00 No [id number] 4mg Take 1 tablet by mouth every 12 (twelve) hours as needed for Nausea and Vomiting (N/V). [facility] acetaminoph en-codeine 300-30 mg tablet 01-02 00:00: 00 01-08 00:00 :00 No [id number] 1{tbl} Take 1 tablet by mouth every 6 (six) hours as needed for Pain (scale 7-10) for up to 7 days. Indication s: acute pain [facility] doxylamine- pyridoxine, vit B6, (DICLEGIS) 10-10 mg per tablet 12-21 00:00: 00 04-09 00:00 :00 No [id number] Day 1: Take 2 tablet before bed. Day 2: If still having nausea and vomiting 2 tablet bed. Day 3 take 1 tablet in am and 2 tablet at bed [facility] HYDROcodone -acetaminop hen 7.5-325 mg per tablet 12-17 00:00: 00 01-08 00:00 :00 No TAKE 1 TABLET BY MOUTH EVERY 4 HOURS FOR PAIN [facility] ketorolac 10 mg tablet 12-17 00:00: 00 01-08 00:00 :00 No 10mg Take 1 tablet by mouth every 8 (eight) hours as needed. [facility] Nitrofurant oin&Nit. Macrocryst (MACROBID) 100 mg capsule 12-14 00:00: 00 12-25 04:59 :00 No [id number] 100mg Take 1 capsule by mouth in the morning and 1 capsule in the evening. Do all this for 10 days. [facility] Nitrofurant oin&Nit. Macrocryst (MACROBID) 100 mg capsule 12-12 00:00: 00 12-23 04:59 :00 No [id number] 100mg Take 1 capsule by mouth in the morning and 1 capsule in the evening. Do all this for 10 days. [facility] cetirizine HCl (ZYRTEC ORAL) 12-11 11:04: 03 12-11 00:00 :00 No Take by mouth. [facility] vitamin w/FA tablet 12-11 00:00: 00 Yes [id number] 1{tbl} Take 1 tablet by mouth in the morning. [facility] vitamin w/FA tablet 12-11 00:00: 00 Yes [id number] 1{tbl} Take 1 tablet by mouth in the morning. [facility] proMETHazin e 25 mg tablet 12-11 00:00: 00 01-08 00:00 :00 No [id number] 25mg Take 1 tablet by mouth every 6 (six) hours as needed for Nausea and Vomiting (N/V). [facility] TRINATAL RX 1 60 mg iron-1 mg tablet 12-11 00:00: 00 01-08 00:00 :00 No 1{tbl} Take 1 tablet by mouth every morning. [facility] norelgestro min-ethinyl estradiol 150-35 mcg/24 hr patch 11-12 00:00: 00 12-10 00:00 :00 No [id number] 1{patch } Apply 1 Patch to skin weekly. [facility] SERTraline (ZOLOFT) 100 mg tablet 10-22 00:00: 00 12-11 00:00 :00 No [id number] 100mg Take 1 tablet by mouth in the morning. [facility] ondansetron (ZOFRAN-ODT ) disintegrat ing tablet 4 mg 09-28 13:40: 00 09-28 13:44 :00 No 4mg 4 mg, Oral, ONCE, 1 dose, On Wed09/28/22 at 0845, Routine [facility] cetirizine HCl (ZYRTEC ORAL) 09-28 13:30: 35 Yes Take by mouth. [facility] lactated ringers IV infusion 1,000 mL 09-28 02:45: 00 Yes 1000mL at 42 mL/hr, 1,000 mL, IV Infusion, CONTINUOUS , Starting on Wed09/27/22 at 2145, Until Discontinu ed, Routine [facility] HYDROmorphO ne (DILAUDID) injection 0.5 mg 09-28 01:50: 58 09-28 03:05 :22 No .5mg 0.5 mg, Slow IV Push, Q5MIN PRN, 4 doses, Starting on Wed09/27/22 at 205, Until Wed09/27/22 at 2204, DOUGLAS, Pain (scale 7-10), PACU
Us e approved by (Faculty): ADC PROVIDER [facility] HYDROcodone -acetaminop hen (NORCO 5) 5-325 mg tablet 2 tablet 09-28 01:40: 53 Yes 2{tbl} 2 tablet, Oral, Q6HPRN, Starting on Wed09/27/22 at 2039, Until Discontinu ed, Routine, Pain (scale 7-10) [facility] HYDROcodone -acetaminop hen (NORCO 5) 5-325 mg tablet 1 tablet 09-28 01:40: 46 Yes 1{tbl} 1 tablet, Oral, Q6HPRN, Starting on Wed09/27/22 at 2039, Until Discontinu ed, Routine, Pain (scale 4-6) [facility] water for irrigation irrigation solution 09-28 01:20: 00 Yes PRN, Starting on 09/27/22 at 2020, Until Discontinu ed, Routine, Intra-op [facility] HYDROcodone -acetaminop hen 5-325 mg tablet 09-28 00:00: 00 11-12 00:00 :00 No [id number] 1{tbl} Take 1 tablet by mouth every 6 (six) hours as needed for Pain (scale 4-6). Indication s: acute pain [facility] miSOPROStoL (CYTOTEC) tablet 800 mcg 09-27 14:15: 00 09-27 13:36 :00 No 800ug 800 mcg, Oral, ONCE, 1 dose, On 09/27/22 at 0915, [facility] NaCl (NS) IV infusion 1,000 mL 09-27 05:30: 00 Yes 1000mL at 125 mL/hr, 1,000 mL, IV Infusion, CONTINUOUS , Starting on 09/27/22 at 0030, Until Discontinu ed, Routine [facility] HYDROcodone -acetaminop hen (NORCO) 10-325 mg tablet 1 tablet 09-27 04:45: 00 09-27 03:42 :00 No 1{tbl} 1 tablet, Oral, ONCE NOW, 1 dose, On 09/26/22 at 2345, Routine [facility] diphenhydrA MINE (BENADRYL) injection 25 mg 09-27 04:40: 31 Yes 25mg 25 mg, Intravenou s, Q6HPRN, Starting on 09/26/22 at 2340, Until Discontinu ed, Routine, Itching [facility] ketorolac (TORADOL) injection 30 mg 09-27 04:33: 40 09-29 04:32 :40 No 30mg 30 mg, Slow IV Push, Q6HPRN, Starting on 09/26/22 at 2333, Until 09/28/22 at 2332, Routine, Pain (scale 1-3), Pain (scale 4-6) [facility] [place] [facility] FENTanyl PF (SUBLIMAZE (PF)) injection 50 mcg 09-27 04:33: 26 Yes 50ug 50 mcg, Slow IV Push, Q2HPRN, Starting on 09/26/22 at 2333, Until Discontinu ed, Routine, Pain (scale 7-10) [facility] metoclopram julia HCl (REGLAN) injection 10 mg 09-27 03:45: 00 09-27 03:43 :00 No 10mg 10 mg, Slow IV Push, ONCE, 1 dose, On 09/26/22 at 2245, DOUGLAS [facility] NaCl 0.9% (NS) IV infusion 1,000 mL 09-27 03:30: 00 09-27 03:42 :00 No 1000mL at 999 mL/hr, Intravenou s, ONCE, 1 dose, On 09/26/22 at 2230, Routine [facility] ondansetron (ZOFRAN (PF)) injection 4 mg 09-27 02:45: 00 09-27 02:42 :00 No 4mg 4 mg, Slow IV Push, ONCE, 1 dose, On 09/26/22 at 2145, DOUGLAS [facility] FENTanyl PF (SUBLIMAZE (PF)) injection 25 mcg 09-27 02:45: 00 09-27 02:42 :00 No 25ug 25 mcg, Slow IV Push, ONCE, 1 dose, On 09/26/22 at 2145, STAT [facility] ketorolac (TORADOL) injection 30 mg 09-27 01:15: 00 09-27 00:42 :00 No 30mg 30 mg, Slow IV Push, ONCE, 1 dose, On 09/26/22 at 2015, Routine [facility] NaCl 0.9% (NS) IV infusion 1,000 mL 09-27 01:15: 00 09-27 02:37 :41 No 1000mL at 999 mL/hr, Intravenou s, CONTINUOUS , Starting on 09/26/22 at 2014, Until 09/26/22 at 2137, DOUGLAS [facility] ondansetron (ZOFRAN (PF)) injection 4 mg 09-27 00:30: 00 09-27 00:34 :00 No 4mg 4 mg, Slow IV Push, ONCE, 1 dose, On 09/26/22 at 1930, DOUGLAS [facility] morpHINE (4 mg/mL) injection 4 mg 09-27 00:15: 00 09-27 00:35 :00 No 4mg 4 mg, Slow IV Push, ONCE, 1 dose, On 09/26/22 at 1915, STAT [facility] SERTraline (ZOLOFT) 50 mg tablet 09-23 00:00: 00 10-22 00:00 :00 No [id number] 100 50mg Take 1 tablet by mouth in the morning. [facility] proMETHazin e 25 mg tablet 08-11 00:00: 00 11-12 00:00 :00 No [id number] 25mg Take 1 tablet by mouth every 4 (four) hours as needed for Nausea and Vomiting (N/V). [facility] Iron Fum & P-FA-Vit B & C No.9 (INTEGRA PLUS) 125 mg iron- 1 mg Cap 08-11 00:00: 00 11-12 00:00 :00 No [id number] 1{capsu le} Take 1 capsule by mouth daily. [facility] Iron Fum & P-FA-Vit B & C No.9 (INTEGRA PLUS) 125 mg iron- 1 mg Cap - 00:00: 00 11-12 00:00 :00 No [id number] 1{capsu le} Take 1 capsule by mouth daily. [facility] HYDROcodone -acetaminop hen (NORCO) 10-325 mg tablet 1 tablet 2021-06 09:30: 00 04-27 08:47 :00 No 1{tbl} 1 tablet, Oral, ONCE, 1 dose, On Wed04/27/22 at 0330, Routine [facility] ketorolac (TORADOL) injection 30 mg 2021-06 09:00: 00 04-27 08:25 :00 No 30mg 30 mg, Slow IV Push, ONCE, 1 dose, On Wed04/27/22 at 0300, Routine [facility] tranexamic acid 650 mg tablet 2021-06 00:00: 00 05-03 05:59 :00 No [id number] 100 1300mg Take 2 tablets by mouth in the morning and 2 tablets at noon and 2 tablets in the evening. Do all this for 5 days. [facility] omeprazole 10 mg capsule 12-30 19:26: 59 12-30 00:00 :00 No 10mg Take 10 mg by mouth daily. [facility] norelgestro min-ethinyl estradiol (XULANE) 150-35 mcg/24 hr patch 12-30 00:00: 00 04-27 00:00 :00 No [id number] 1{patch } Apply 1 Patch to skin weekly. For 3 weeks, followed by 1 week no ptach [facility] ibuprofen 600 mg tablet 03-17 00:00: 00 12-30 00:00 :00 No [id number] 600mg Take 1 tablet by mouth every 6 (six) hours as needed for Pain (scale 4-6). [facility] cetirizine HCl (ZYRTEC ORAL) 06-27 15:45: 25 Yes Take by mouth. [facility] ibuprofen 600 mg tablet 2019-06 00:00: 00 06-27 00:00 :00 No [id number] 600mg Take 1 tablet by mouth every 6 (six) hours as needed for Pain (scale 4-6). [facility] ondansetron (ZOFRAN ODT) 4 mg disintegrat ing tablet 2019-06 00:00: 00 06-27 00:00 :00 No [id number] 4mg Take 1 tablet by mouth every 8 (eight) hours as needed for Nausea and Vomiting (N/V). [facility] traMADol 50 mg tablet 6-16 00:00: 00 06-27 00:00 :00 No [id number] 50mg Take 1 tablet by mouth every 6 (six) hours as needed (pain). [facility] proMETHazin e 25 mg tablet 6-16 00:00: 00 06-27 00:00 :00 No [id number] 25mg Take 1 tablet by mouth every 6 (six) hours as needed for Nausea and Vomiting (N/V). [facility] ibuprofen 600 mg tablet 5-27 00:00: 00 06-27 00:00 :00 No [id number] 600mg Take 1 tablet by mouth every 6 (six) hours as needed for Pain (scale 4-6). [facility] acetaminoph en-codeine 300-30 mg tablet 5-27 00:00: 00 06-27 00:00 :00 No [id number] 1{tbl} Take 1 tablet by mouth every 4 (four) hours as needed for Pain (scale 4-6). [facility] ondansetron 4 mg disintegrat ing tablet 3-12 00:00: 00 06-27 00:00 :00 No [id number] 4mg Take 1 tablet by mouth every 4 (four) hours as needed for Nausea and Vomiting (N/V). [facility] acetaminoph en-codeine 300-30 mg tablet 3-12 00:00: 00 06-27 00:00 :00 No [id number] 1{tbl} Take 1-2 tablets by mouth every 6 (six) hours as needed (cough). [facility] ibuprofen 800 mg tablet 3-12 00:00: 00 06-27 00:00 :00 No [id number] 800mg Take 1 tablet by mouth every 8 (eight) hours as needed for Pain (scale 4-6). [facility] sod chlor-bicar b-squeez bottle (NEILMED SINUS RINSE COMPLETE) pkdv 2018-06 2-20 00:00: 00 06-27 00:00 :00 No [id number] 1{bottl e} Use 1 Bottle in each nostril 2 (two) times daily. Use in hot shower 1 hour before bedtime [facility] promethazin e-codeine 6.25-10 mg/5 mL syrup 2018-06 00:00: 00 06-27 00:00 :00 No [id number] 5mL Take 5 mL by mouth 4 (four) times daily as needed for Cough. [facility] traMADol (ULTRAM) 50 mg tablet 2018-06 00:00: 00 06-27 00:00 :00 No [id number] 50mg Take 1 tablet by mouth every 8 (eight) hours as needed for Pain (scale 4-6). [facility] Immunizations Ordered Immunization Name Filled Immunization Name Date Status Comments Source [facility] 2020-06-27 00:00:00 Completed [facility] 2020-06-27 00:00:00 Completed [facility] 2020-06-27 00:00:00 Completed [facility] 2020-06-27 00:00:00 Completed [facility] 2020-06-27 00:00:00 Completed [facility] 2020-06-27 00:00:00 Completed [facility] 2020-06-27 00:00:00 Completed [facility] 2020-06-27 00:00:00 Completed [facility] 2020-06-27 00:00:00 Completed [facility] 2020-06-27 00:00:00 Completed [facility] 2020-06-27 00:00:00 Completed [facility] 2020-06-27 00:00:00 Completed [facility] 2020-06-27 00:00:00 Completed [facility] 2020-06-27 00:00:00 [facility] [place] 2020-06-27 00:00:00 Completed [facility] 2020-06-27 00:00:00 Completed [facility] 2020-06-27 00:00:00 Completed [facility] HPV9 2020-06-27 00:00:00 Completed [facility] HPV9 2020-06-27 00:00:00 Completed [facility] HPV9 2020-06-27 00:00:00 Completed [facility] HPV9 2020-06-27 00:00:00 Completed [facility] HPV9 2020-06-27 00:00:00 Completed [facility] HPV9 2020-06-27 00:00:00 Completed [facility] HPV9 2020-06-27 00:00:00 Completed [facility] HPV9 2020-06-27 00:00:00 Completed [facility] HPV9 2020-06-27 00:00:00 Completed [facility] HPV9 2020-06-27 00:00:00 Completed [facility] HPV9 2020-06-27 00:00:00 Completed [facility] HPV9 2020-06-27 00:00:00 Completed [facility] HPV9 2020-06-27 00:00:00 Completed [facility] HPV9 2020-06-27 00:00:00 Completed [facility] HPV9 2020-06-27 00:00:00 Completed [facility] HPV9 2020-06-27 00:00:00 Completed [facility] HPV9 2020-06-27 00:00:00 Completed [facility] HPV9 2020-06-27 00:00:00 Completed [facility] HPV9 2020-06-27 00:00:00 Completed [facility] HPV9 2020-06-27 00:00:00 Completed [facility] HPV9 2020-06-27 00:00:00 Completed [facility] HPV9 2020-06-27 00:00:00 Completed [facility] HPV9 2020-06-27 00:00:00 Completed [facility] HPV9 2020-06-27 00:00:00 Completed [facility] HPV9 2020-06-27 00:00:00 Completed [facility] HPV9 2020-06-27 00:00:00 Completed [facility] HPV9 2020-06-27 00:00:00 Completed [facility] HPV9 2020-06-27 00:00:00 Completed [facility] HPV9 2020-06-27 00:00:00 Completed [facility] HPV9 2020-06-27 00:00:00 Completed [facility] TDAP 2017-12-21 00:00:00 Completed [facility] TDAP 2017-12-21 00:00:00 Completed [facility] TDAP 2017-12-21 00:00:00 Completed [facility] TDAP 2017-12-21 00:00:00 Completed [facility] TDAP 2017-12-21 00:00:00 Completed [facility] TDAP 2017-12-21 00:00:00 Completed [facility] TDAP 2017-12-21 00:00:00 Completed [facility] TDAP 2017-12-21 00:00:00 Completed [facility] TDAP 2017-12-21 00:00:00 Completed [facility] TDAP 2017-12-21 00:00:00 Completed [facility] TDAP 2017-12-21 00:00:00 Completed [facility] TDAP 2017-12-21 00:00:00 Completed [facility] TDAP 2017-12-21 00:00:00 Completed [facility] TDAP 2017-12-21 00:00:00 Completed [facility] TDAP 2017-12-21 00:00:00 Completed [facility] TDAP 2017-12-21 00:00:00 Completed [facility] TDAP 2017-12-21 00:00:00 Completed [facility] TDAP 2017-12-21 00:00:00 Completed [facility] TDAP 2017-12-21 00:00:00 Completed [facility] TDAP 2017-12-21 00:00:00 Completed [facility] TDAP 2017-12-21 00:00:00 Completed [facility] TDAP 2017-12-21 00:00:00 Completed [facility] TDAP 2017-12-21 00:00:00 Completed [facility] TDAP 2017-12-21 00:00:00 Completed [facility] TDAP 2017-12-21 00:00:00 Completed [facility] TDAP 2017-12-21 00:00:00 Completed [facility] TDAP 2017-12-21 00:00:00 Completed [facility] TDAP 2017-12-21 00:00:00 Completed [facility] TDAP 2017-12-21 00:00:00 Completed [facility] TDAP 2017-12-21 00:00:00 Completed [facility] TDAP 2017-12-21 00:00:00 Completed [facility] TDAP 2017-12-21 00:00:00 Completed [facility] TDAP 2017-12-21 00:00:00 Completed [facility] TDAP 2017-12-21 00:00:00 Completed [facility] TDAP 2017-12-21 00:00:00 Completed [facility] TDAP 2017-12-21 00:00:00 Completed [facility] TDAP 2017-12-21 00:00:00 Completed [facility] TDAP 2017-12-21 00:00:00 Completed [facility] TDAP 2017-12-21 00:00:00 Completed [facility] TDAP 2017-12-21 00:00:00 Completed [facility] TDAP 2017-12-21 00:00:00 Completed [facility] TDAP 2017-12-21 00:00:00 Completed [facility] TDAP 2017-12-21 00:00:00 Completed [facility] TDAP 2017-12-21 00:00:00 Completed [facility] TDAP 2017-12-21 00:00:00 Completed [facility] TDAP 2017-12-21 00:00:00 Completed [facility] TDAP 2017-12-21 00:00:00 Completed [facility] TDAP 2016-07-09 00:00:00 Completed [facility] TDAP 2016-07-09 00:00:00 Completed [facility] TDAP 2016-07-09 00:00:00 Completed [facility] TDAP 2016-07-09 00:00:00 Completed [facility] TDAP 2016-07-09 00:00:00 Completed [facility] TDAP 2016-07-09 00:00:00 Completed [facility] TDAP 2016-07-09 00:00:00 Completed [facility] TDAP 2016-07-09 00:00:00 Completed [facility] TDAP 2016-07-09 00:00:00 Completed [facility] TDAP 2016-07-09 00:00:00 Completed [facility] TDAP 2016-07-09 00:00:00 Completed [facility] TDAP 2016-07-09 00:00:00 Completed [facility] TDAP 2016-07-09 00:00:00 Completed [facility] TDAP 2016-07-09 00:00:00 Completed [facility] TDAP 2016-07-09 00:00:00 Completed [facility] TDAP 2016-07-09 00:00:00 Completed [facility] TDAP 2016-07-09 00:00:00 Completed [facility] TDAP 2016-07-09 00:00:00 Completed [facility] TDAP 2016-07-09 00:00:00 Completed [facility] TDAP 2016-07-09 00:00:00 Completed [facility] TDAP 2016-07-09 00:00:00 Completed [facility] TDAP 2016-07-09 00:00:00 Completed [facility] TDAP 2016-07-09 00:00:00 Completed [facility] TDAP 2016-07-09 00:00:00 Completed [facility] TDAP 2016-07-09 00:00:00 Completed [facility] TDAP 2016-07-09 00:00:00 Completed [facility] TDAP 2016-07-09 00:00:00 Completed [facility] TDAP 2016-07-09 00:00:00 Completed [facility] TDAP 2016-07-09 00:00:00 Completed [facility] TDAP 2016-07-09 00:00:00 Completed [facility] TDAP 2016-07-09 00:00:00 Completed [facility] TDAP 2016-07-09 00:00:00 Completed [facility] TDAP 2016-07-09 00:00:00 Completed [facility] TDAP 2016-07-09 00:00:00 Completed [facility] TDAP 2016-07-09 00:00:00 Completed [facility] TDAP 2016-07-09 00:00:00 Completed [facility] TDAP 2016-07-09 00:00:00 Completed [facility] TDAP 2016-07-09 00:00:00 Completed [facility] TDAP 2016-07-09 00:00:00 Completed [facility] TDAP 2016-07-09 00:00:00 Completed TDAP 2016-07-09 00:00:00 Completed [facility] TDAP 2016-07-09 00:00:00 Completed [facility] TDAP 2016-07-09 00:00:00 Completed [facility] TDAP 2016-07-09 00:00:00 Completed [facility] TDAP 2016-07-09 00:00:00 Completed [facility] TDAP 2016-07-09 00:00:00 Completed [facility] TDAP 2016-07-09 00:00:00 Completed [facility] Influenza Virus Vaccine Quad IM 3+ YRS 2016-03-25 00:00:00 Completed [facility] Influenza Virus Vaccine Quad IM 3+ YRS 2016-03-25 00:00:00 Completed [facility] Influenza Virus Vaccine Quad IM 3+ YRS 2016-03-25 00:00:00 Completed [facility] Influenza Virus Vaccine Quad IM 3+ YRS 2016-03-25 00:00:00 Completed [facility] Influenza Virus Vaccine Quad IM 3+ YRS 2016-03-25 00:00:00 Completed [facility] Influenza Virus Vaccine Quad IM 3+ YRS 2016-03-25 00:00:00 Completed [facility] Influenza Virus Vaccine Quad IM 3+ YRS 2016-03-25 00:00:00 Completed [facility] Influenza Virus Vaccine Quad IM 3+ YRS 2016-03-25 00:00:00 Completed [facility] Influenza Virus Vaccine Quad IM 3+ YRS 2016-03-25 00:00:00 Completed [facility] Influenza Virus Vaccine Quad IM 3+ YRS 2016-03-25 00:00:00 Completed [facility] Influenza Virus Vaccine Quad IM 3+ YRS 2016-03-25 00:00:00 Completed [facility] Influenza Virus Vaccine Quad IM 3+ YRS 2016-03-25 00:00:[address] [facility] [place] [facility] Influenza Virus Vaccine Quad IM 3+ YRS 2016-03-25 00:00:00 Completed [facility] Influenza Virus Vaccine Quad IM 3+ YRS 2016-03-25 00:00:00 Completed [facility] Influenza Virus Vaccine Quad IM 3+ YRS 2016-03-25 00:00:00 Completed [facility] Influenza Virus Vaccine Quad IM 3+ YRS 2016-03-25 00:00:00 Completed [facility] Influenza Virus Vaccine Quad IM 3+ YRS 2016-03-25 00:00:00 Completed [facility] Influenza Virus Vaccine Quad IM 3+ YRS 2016-03-25 00:00:00 Completed [facility] Influenza Virus Vaccine Quad IM 3+ YRS 2016-03-25 00:00:00 Completed [facility] Influenza Virus Vaccine Quad IM 3+ YRS 2016-03-25 00:00:00 Completed [facility] Influenza Virus Vaccine Quad IM 3+ YRS 2016-03-25 00:00:00 Completed [facility] Influenza Virus Vaccine Quad IM 3+ YRS 2016-03-25 00:00:00 Completed [facility] Influenza Virus Vaccine Quad IM 3+ YRS 2016-03-25 00:00:00 Completed [facility] Influenza Virus Vaccine Quad IM 3+ YRS 2016-03-25 00:00:00 Completed [facility] Influenza Virus Vaccine Quad IM 3+ YRS 2016-03-25 00:00:00 Completed [facility] Influenza Virus Vaccine Quad IM 3+ YRS 2016-03-25 00:00:00 Completed [facility] Influenza Virus Vaccine Quad IM 3+ YRS 2016-03-25 00:00:00 Completed [facility] Influenza Virus Vaccine Quad IM 3+ YRS 2016-03-25 00:00:00 Completed [facility] Influenza Virus Vaccine Quad IM 3+ YRS 2016-03-25 00:00:00 Completed [facility] Influenza Virus Vaccine Quad IM 3+ YRS 2016-03-25 00:00:00 Completed [facility] Influenza Virus Vaccine Quad IM 3+ YRS 2016-03-25 00:00:00 Completed [facility] Influenza Virus Vaccine Quad IM 3+ YRS 2016-03-25 00:00:00 Completed [facility] Influenza Virus Vaccine Quad IM 3+ YRS 2016-03-25 00:00:00 Completed [facility] Influenza Virus Vaccine Quad IM 3+ YRS 2016-03-25 00:00:00 Completed [facility] Influenza Virus Vaccine Quad IM 3+ YRS 2016-03-25 00:00:00 Completed [facility] Influenza Virus Vaccine Quad IM 3+ YRS 2016-03-25 00:00:00 Completed [facility] Influenza Virus Vaccine Quad IM 3+ YRS 2016-03-25 00:00:00 Completed [facility] Influenza Virus Vaccine Quad IM 3+ YRS 2016-03-25 00:00:00 Completed [facility] Influenza Virus Vaccine Quad IM 3+ YRS 2016-03-25 00:00:00 Completed [facility] Influenza Virus Vaccine Quad IM 3+ YRS 2016-03-25 00:00:00 Completed [facility] Influenza Virus Vaccine Quad IM 3+ YRS 2016-03-25 00:00:00 Completed [facility] Influenza Virus Vaccine Quad IM 3+ YRS 2016-03-25 00:00:00 Completed [facility] Influenza Virus Vaccine Quad IM 3+ YRS 2016-03-25 00:00:00 Completed [facility] Influenza Virus Vaccine Quad IM 3+ YRS 2016-03-25 00:00:00 Completed [facility] Influenza Virus Vaccine Quad IM 3+ YRS 2016-03-25 00:00:00 Completed [facility] Influenza Virus Vaccine Quad IM 3+ YRS 2016-03-25 00:00:00 Completed [facility] Influenza Virus Vaccine Quad IM 3+ YRS 2016-03-25 00:00:00 Completed [facility] Influenza Virus Vaccine Quad IM 3+ YRS Unknown Completed [facility] TDAP Unknown Completed [facility] HPV9 Unknown Completed [facility] Influenza Virus Vaccine Quad IM 3+ YRS Unknown Completed [facility] TDAP Unknown Completed [facility] HPV9 Unknown Completed [facility] Influenza Virus Vaccine Quad IM 3+ YRS Unknown Completed [facility] TDAP Unknown Completed [facility] HPV9 Unknown Completed [facility] Influenza Virus Vaccine Quad IM 3+ YRS Unknown Completed [facility] TDAP Unknown Completed [facility] HPV9 Unknown Completed [facility] Influenza Virus Vaccine Quad IM 3+ YRS Unknown Completed [facility] TDAP Unknown Completed [facility] HPV9 Unknown Completed [facility] Influenza Virus Vaccine Quad IM 3+ YRS Unknown Completed [facility] TDAP Unknown Completed [facility] HPV9 Unknown Completed [facility] Influenza Virus Vaccine Quad IM 3+ YRS Unknown Completed [facility] TDAP Unknown Completed [facility] HPV9 Unknown Completed [facility] Influenza Virus Vaccine Quad IM 3+ YRS Unknown Completed [facility] TDAP Unknown Completed [facility] HPV9 Unknown Completed [facility] Influenza Virus Vaccine Quad IM 3+ YRS Unknown Completed [facility] TDAP Unknown Completed [facility] HPV9 Unknown Completed [facility] Influenza Virus Vaccine Quad IM 3+ YRS Unknown Completed [facility] TDAP Unknown Completed [facility] HPV9 Unknown Completed [facility] Influenza Virus Vaccine Quad IM 3+ YRS Unknown Completed [facility] TDAP Unknown Completed [facility] HPV9 Unknown Completed [facility] Influenza Virus Vacc[facility] Quad IM 3+ YRS Unknown Completed [facility] TDAP Unknown Completed [facility] Influenza Virus Vaccine Quad IM 3+ YRS Unknown Completed [facility] TDAP Unknown Completed [facility] HPV9 Unknown Completed [facility] Influenza Virus Vaccine Quad IM 3+ YRS Unknown Completed [facility] TDAP Unknown Completed [facility] HPV9 Unknown Completed [facility] HPV9 Unknown Completed [facility] TDAP Unknown Completed [facility] Influenza Virus Vacc[facility] Quad IM 3+ YRS Unknown Completed [facility] HPV9 Unknown Completed [facility] TDAP Unknown Completed [facility] Influenza Virus Vaccine Quad IM 3+ YRS Unknown Completed [facility] HPV9 Unknown Completed [facility] TDAP Unknown Completed [facility] Influenza Virus Vaccine Quad IM 3+ YRS Unknown Completed [facility] TDAP Unknown Completed [facility] HPV9 Unknown Completed [facility] Influenza Virus Vaccine Quad IM 3+ YRS Unknown Completed [facility] TDAP Unknown Completed [facility] HPV9 Unknown Completed [facility] Influenza Virus Vaccine Quad IM 3+ YRS Unknown Completed [facility] HPV9 Unknown Completed [facility] HPV9 Unknown Completed [facility] TDAP Unknown Completed [facility] Influenza Virus Vaccine Quad IM 3+ YRS Unknown Completed [facility] TDAP Unknown [facility]pleted [facility] HPV9 Unknown Completed [facility] TDAP Unknown Completed [facility] Influenza Virus Vaccine Quad IM 3+ YRS Unknown Completed [facility] Influenza Virus Vaccine Quad IM 3+ YRS Unknown Completed [facility] HPV9 Unknown Completed [facility] TDAP Unknown Completed [facility] Influenza Virus Vaccine Quad IM 3+ YRS Unknown Completed [facility] TDAP Unknown Completed [facility] HPV9 Unknown Completed [facility] Influenza Virus Vaccine Quad IM 3+ YRS Unknown Completed [facility] TDAP Unknown Completed [facility] HPV9 Unknown Completed [facility] Influenza Virus Vaccine Quad IM 3+ YRS Unknown Completed [facility] Influenza Virus Vaccine Quad IM 3+ YRS Unknown Completed [facility] TDAP Unknown Completed [facility] HPV9 Unknown Completed [facility] Influenza Virus Vaccine Quad IM 3+ YRS Unknown Completed [facility] TDAP Unknown Completed [facility] HPV9 Unknown Completed [facility] Influenza Virus Vaccine Quad IM 3+ YRS Unknown Completed [facility] HPV9 Unknown Completed [facility] TDAP Unknown Completed [facility] Influenza Virus Vaccine Quad IM 3+ YRS Unknown Completed [facility] TDAP Unknown Completed [facility] HPV9 Unknown Completed [facility] Influenza Virus Vaccine Quad IM 3+ YRS Unknown Completed [facility] TDAP Unknown Completed [facility] HPV9 Unknown Completed [facility] Influenza Virus Vaccine Quad IM 3+ YRS Unknown Completed [facility] TDAP Unknown Completed [facility] HPV9 Unknown Completed [facility] Influenza Virus Vaccine Quad IM 3+ YRS Unknown Completed [facility] TDAP Unknown Completed [facility] HPV9 Unknown Completed [facility] Influenza Virus Vaccine Quad IM 3+ YRS Unknown Completed [facility] HPV9 Unknown Completed [facility] TDAP Unknown [facility]pleted [facility] Influenza Virus Vaccine Quad IM 3+ YRS Unknown Completed [facility] TDAP Unknown [facility]pleted [facility] HPV9 Unknown Completed [facility] Influenza Virus Vaccine Quad IM 3+ YRS Unknown Completed [facility] TDAP Unknown [facility]pleted [facility] HPV9 Unknown [facility] [facility] Influ[facility] Virus Vaccine Quad IM 3+ YRS Unknown Completed [facility] TDAP Unknown Completed [facility] HPV9 Unknown Completed [facility] Influenza Virus Vaccine Quad IM 3+ YRS Unknown Completed [facility] TDAP Unknown Completed [facility] HPV9 Unknown Completed [facility] Influenza Virus Vaccine Quad IM 3+ YRS Unknown Completed [facility] TDAP Unknown Completed [facility] HPV9 Unknown Completed [facility] Influenza Virus Vaccine Quad IM 3+ YRS Unknown Completed [facility] TDAP Unknown Completed [facility] HPV9 Unknown Completed [facility] Influenza Virus Vaccine Quad IM 3+ YRS Unknown Completed [facility] TDAP Unknown Completed [facility] HPV9 Unknown Completed [facility] Influenza Virus Vaccine Quad IM 3+ YRS Unknown Completed [facility] TDAP Unknown Completed [facility] HPV9 Unknown Completed [facility] Influenza Virus Vaccine Quad IM 3+ YRS Unknown Completed [facility] TDAP Unknown Completed [facility] HPV9 Unknown Completed [facility] Influenza Virus Vaccine Quad IM 3+ YRS Unknown Completed [facility] TDAP Unknown Completed [facility] HPV9 Unknown Completed [facility] Influenza Virus Vaccine Quad IM 3+ YRS Unknown Completed [facility] TDAP Unknown Completed [facility] HPV9 Unknown Completed [facility] Influenza Virus Vaccine Quad IM 3+ YRS Unknown Completed [facility] TDAP Unknown Completed [facility] HPV9 Unknown Completed [facility] Influenza Virus Vaccine Quad IM 3+ YRS Unknown Completed [facility] TDAP Unknown Completed [facility] HPV9 Unknown Completed [facility] Influenza Virus Vaccine Quad IM 3+ YRS Unknown Completed [facility] TDAP Unknown Completed [facility] HPV9 Unknown Completed [facility] Influenza Virus Vaccine Quad IM 3+ YRS Unknown Completed [facility] HPV9 Unknown Completed [facility] TDAP Unknown Completed [facility] Influenza Virus Vaccine Quad IM 3+ YRS Unknown Completed [facility] TDAP Unknown Completed [facility] HPV9 Unknown Completed [facility] Influenza Virus Vaccine Quad IM 3+ YRS Unknown Completed [facility] TDAP Unknown Completed [facility] HPV9 Unknown Completed [facility] Influenza Virus Vaccine Quad IM 3+ YRS Unknown Completed [facility] TDAP Unknown Completed [facility] HPV9 Unknown Completed [facility] Influenza Virus Vaccine Quad IM 3+ YRS Unknown Completed [facility] TDAP Unknown Completed [facility] HPV9 Unknown Completed [facility] Influenza Virus Vaccine Quad IM 3+ YRS Unknown Completed [facility] HPV9 Unknown Completed [facility] TDAP Unknown Completed [facility] Influenza Virus Vaccine Quad IM 3+ YRS Unknown Completed [facility] TDAP Unknown Completed [facility] HPV9 Unknown Completed [facility] Influenza Virus Vaccine Quad IM 3+ YRS Unknown Completed [facility] TDAP Unknown Completed [facility] HPV9 Unknown Completed [facility] Influenza Virus Vaccine Quad IM 3+ YRS Unknown Completed [facility] TDAP Unknown Completed [facility] HPV9 Unknown Completed [facility] Influenza Virus Vaccine Quad IM 3+ YRS Unknown Completed [facility] TDAP Unknown Completed [facility] HPV9 Unknown Completed [facility] Influenza Virus Vaccine Quad IM 3+ YRS Unknown Completed [facility] HPV9 Unknown Completed [facility] TDAP Unknown Completed [facility] Influenza Virus Vaccine Quad IM 3+ YRS Unknown Completed [facility] TDAP Unknown Completed [facility] HPV9 Unknown Completed [facility] Influenza Virus Vaccine Quad IM 3+ YRS Unknown Completed [facility] HPV9 Unknown Completed [facility] Influenza Virus Vaccine Quad IM 3+ YRS Unknown Completed [facility] TDAP Unknown Completed [facility] HPV9 Unknown Completed [facility] TDAP Unknown Completed [facility] Influenza Virus Vaccine Quad IM 3+ YRS Unknown Completed [facility] TDAP Unknown Completed [facility] HPV9 Unknown Completed [facility] Influenza Virus Vaccine Quad IM 3+ YRS Unknown Completed [facility] HPV9 Unknown Completed [facility] TDAP Unknown Completed [facility] Influenza Virus Vaccine Quad IM 3+ YRS Unknown Completed [facility] TDAP Unknown Completed [facility] HPV9 Unknown Completed [facility] Influenza Virus Vaccine Quad IM 3+ YRS Unknown Completed [facility] TDAP Unknown Completed [facility] HPV9 Unknown Completed [facility] Influenza Virus Vaccine Quad IM 3+ YRS Unknown Completed [facility] TDAP Unknown Completed [facility] HPV9 Unknown Completed [facility] Influenza Virus Vaccine Quad IM 3+ YRS Unknown Completed [facility] TDAP Unknown Completed [facility] HPV9 Unknown Completed [facility] Influenza Virus Vaccine Quad IM 3+ YRS Unknown Completed [facility] TDAP Unknown Completed [facility] HPV9 Unknown Completed [facility] Influenza Virus Vaccine Quad IM 3+ YRS Unknown Completed [facility] TDAP Unknown Completed [facility] HPV9 Unknown Completed [facility] Influenza Virus Vaccine Quad IM 3+ YRS Unknown Completed [facility] TDAP Unknown Completed [facility] HPV9 Unknown Completed [facility] Influenza Virus Vaccine Quad IM 3+ YRS Unknown Completed [facility] TDAP Unknown Completed [facility] HPV9 Unknown Completed [facility] Influenza Virus Vaccine Quad IM 3+ YRS Unknown Completed [facility] TDAP Unknown Completed [facility] HPV9 Unknown Completed [facility] Influenza Virus Vaccine Quad IM 3+ YRS Unknown Completed [facility] TDAP Unknown Completed [facility] HPV9 Unknown Completed [facility] Influenza Virus Vaccine Quad IM 3+ YRS Unknown Completed [facility] TDAP Unknown Completed [facility] HPV9 Unknown Completed [facility] Influenza Virus Vaccine Quad IM 3+ YRS Unknown Completed [facility] TDAP Unknown Completed [facility] HPV9 Unknown Completed [facility] Influenza Virus Vaccine Quad IM 3+ YRS Unknown Completed [facility] TDAP Unknown Completed [facility] HPV9 Unknown Completed [facility] Influenza Virus Vaccine Quad IM 3+ YRS Unknown Completed [facility] HPV9 Unknown Completed [facility] TDAP Unknown Completed [facility] Influenza Virus Vaccine Quad IM 3+ YRS Unknown Completed [facility] TDAP Unknown Completed [facility] HPV9 Unknown Completed [facility] Influenza Virus Vaccine Quad IM 3+ YRS Unknown Completed [facility] HPV9 Unknown Completed [facility] Influenza Virus Vaccine Quad IM 3+ YRS Unknown Completed [facility] TDAP Unknown Completed [facility] HPV9 Unknown Completed [facility] Influenza Virus Vaccine Quad IM 3+ YRS Unknown Completed [facility] TDAP Unknown Completed [facility] HPV9 Unknown Completed [facility] TDAP Unknown Completed [facility] Influenza Virus Vaccine Quad IM 3+ YRS Unknown Completed [facility] HPV9 Unknown Completed [facility] TDAP Unknown Completed [facility] Influenza Virus Vaccine Quad IM 3+ YRS Unknown Completed [facility] TDAP Unknown Completed [facility] HPV9 Unknown Completed [facility] Influenza Virus Vaccine Quad IM 3+ YRS Unknown Completed [facility] TDAP Unknown Completed [facility] HPV9 Unknown Completed [facility] Influenza Virus Vaccine Quad IM 3+ YRS Unknown Completed [facility] TDAP Unknown Completed [facility] HPV9 Unknown Completed [facility] Influenza Virus Vaccine Quad IM 3+ YRS Unknown Completed [facility] TDAP Unknown Completed [facility] HPV9 Unknown Completed [facility] Influenza Virus Vaccine Quad IM 3+ YRS Unknown Completed [facility] HPV9 Unknown Completed [facility] TDAP Unknown Completed [facility] Influenza Virus Vaccine Quad IM 3+ YRS Unknown Completed [facility] TDAP Unknown Completed [facility] HPV9 Unknown Completed [facility] Influenza Virus Vaccine Quad IM 3+ YRS Unknown Completed [facility] TDAP Unknown Completed [facility] HPV9 Unknown Completed [facility] Influenza Virus Vaccine Quad IM 3+ YRS Unknown Completed [facility] HPV9 Unknown Completed [facility] TDAP Unknown Completed [facility] Influenza Virus Vaccine Quad IM 3+ YRS Unknown Completed [facility] TDAP Unknown Completed [facility] HPV9 Unknown Completed [facility] Influenza Virus Vaccine Quad IM 3+ YRS Unknown Completed [facility] TDAP Unknown Completed [facility] HPV9 Unknown Completed [facility] Influenza Virus Vaccine Quad IM 3+ YRS Unknown Completed [facility] HPV9 Unknown Completed [facility] TDAP Unknown Completed [facility] Influenza Virus Vaccine Quad IM 3+ YRS Unknown Completed [facility] TDAP Unknown Completed [facility] HPV9 Unknown Completed [facility] Influenza Virus Vaccine Quad IM 3+ YRS Unknown Completed [facility] TDAP Unknown Completed [facility] HPV9 Unknown Completed [facility] Influenza Virus Vaccine Quad IM 3+ YRS Unknown Completed [facility] TDAP Unknown Completed [facility] HPV9 Unknown Completed [facility] Influenza Virus Vaccine Quad IM 3+ YRS Unknown Completed [facility] TDAP Unknown Completed [facility] HPV9 Unknown Completed [facility] Influenza Virus Vaccine Quad IM 3+ YRS Unknown Completed [facility] TDAP Unknown Completed [facility] HPV9 Unknown Completed [facility] Influenza Virus Vaccine Quad IM 3+ YRS Unknown Completed [facility] TDAP Unknown Completed [facility] HPV9 Unknown Completed [facility] Influenza Virus Vaccine Quad IM 3+ YRS Unknown Completed [facility] TDAP Unknown Completed [facility] HPV9 Unknown Completed [facility] Influenza Virus Vaccine Quad IM 3+ YRS Unknown Completed [facility] TDAP Unknown Completed [facility] HPV9 Unknown Completed [facility] Influenza Virus Vaccine Quad IM 3+ YRS Unknown Completed [facility] TDAP Unknown Completed [facility] HPV9 Unknown Completed [facility] Influenza Virus Vaccine Quad IM 3+ YRS Unknown Completed [facility] TDAP Unknown Completed [facility] HPV9 Unknown Completed [facility] Influenza Virus Vaccine Quad IM 3+ YRS Unknown Completed [facility] TDAP Unknown Completed [facility] HPV9 Unknown Completed [facility] Influenza Virus Vaccine Quad IM 3+ YRS Unknown Completed [facility] TDAP Unknown Completed [facility] HPV9 Unknown Completed [facility] Influenza Virus Vaccine Quad IM 3+ YRS Unknown Completed [facility] TDAP Unknown Completed [facility] HPV9 Unknown Completed [facility] Influenza Virus Vaccine Quad IM 3+ YRS Unknown Completed [facility] TDAP Unknown Completed [facility] HPV9 Unknown Completed [facility] Influenza Virus Vaccine Quad IM 3+ YRS Unknown Completed [facility] TDAP Unknown Completed [facility] HPV9 Unknown Completed [facility] Influenza Virus Vaccine Quad IM 3+ YRS Unknown Completed [facility] TDAP Unknown Completed [facility] HPV9 Unknown Completed [facility] Influenza Virus Vaccine Quad IM 3+ YRS Unknown Completed [facility] TDAP Unknown Completed [facility] HPV9 Unknown Completed [facility] Influenza Virus Vaccine Quad IM 3+ YRS Unknown Completed [facility] TDAP Unknown Completed [facility] HPV9 Unknown Completed [facility] Influenza Virus Vaccine Quad IM 3+ YRS Unknown Completed [facility] TDAP Unknown Completed [facility] HPV9 Unknown Completed [facility] Influenza Virus Vaccine Quad IM 3+ YRS Unknown Completed [facility] TDAP Unknown Completed [facility] HPV9 Unknown Completed [facility] Influenza Virus Vaccine Quad IM 3+ YRS Unknown Completed [facility] TDAP Unknown Completed [facility] HPV9 Unknown Completed [facility] Vital Signs Vital Name Observation Time Observation Value Comments S ource Systolic blood pressure 2024-05-25 19:29:00 109 mm[Hg] [facility] Diastolic blood pressure 2024-05-25 19:29:00 66 mm[Hg] [facility] Heart rate 2024-05-25 19:29:00 77 /min [facility] Body temperature 2024-05-25 19:29:00 36.22 Sandhya [facility] Body height 2024-05-25 19:29:00 170.2 cm [facility] Body weight 2024-05-25 19:29:00 95.255 kg [facility] BMI 2024-05-25 19:29:00 32.89 kg/m2 [facility] Oxygen saturation in Arterial blood by Pulse oximetry 2024-05-25 19:29:00 100 /min [facility] Body height 2024-05-09 23:01:00 170.2 cm [facility] Body weight 2024-05-09 23:01:00 97.523 kg [facility] BMI 2024-05-09 23:01:00 33.67 kg/m2 [facility] Systolic blood pressure 2024-05-09 23:00:00 114 mm[Hg] [facility] Diastolic blood pressure 2024-05-09 23:00:00 70 mm[Hg] [facility] Heart rate 2024-05-09 23:00:00 66 /min [facility] Body temperature 2024-05-09 23:00:00 36.44 Sandhya [facility] Respiratory rate 2024-05-09 23:00:00 18 /min [facility] Oxygen saturation in Arterial blood by Pulse oximetry 2024-05-09 23:00:00 100 /min [facility] Systolic blood pressure 2024-05-09 20:40:00 105 mm[Hg] [facility] Diastolic blood pressure 2024-05-09 20:40:00 73 mm[Hg] [facility] Heart rate 2024-05-09 20:40:00 65 /min [facility] Respiratory rate 2024-05-09 20:40:00 13 /min [facility] Oxygen saturation in Arterial blood by Pulse oximetry 2024-05-09 20:40:00 96 /min [facility] Body temperature 2024-05-09 17:28:00 36.28 Sandhya [facility] Body height 2024-05-09 17:15:00 170.2 cm [facility] Body weight 2024-05-09 17:15:00 97.523 kg [facility] BMI 2024-05-09 17:15:00 33.67 kg/m2 [facility] Systolic blood pressure 2024-05-09 17:28:00 105 mm[Hg] [facility] Diastolic blood pressure 2024-05-09 17:28:00 74 mm[Hg] [facility] Heart rate 2024-05-09 17:28:00 81 /min [facility] Body temperature 2024-05-09 17:28:00 36.28 Sandhya [facility] Respiratory rate 2024-05-09 17:28:00 22 /min [facility] Oxygen saturation in Arterial blood by Pulse oximetry 2024-05-09 17:28:00 95 /min [facility] Body height 2024-05-09 17:15:00 170.2 cm [facility] Body weight 2024-05-09 17:15:00 97.523 kg [facility] BMI 2024-05-09 17:15:00 33.67 kg/m2 [facility] Systolic blood pressure 2024-04-13 14:21:00 102 mm[Hg] [facility] Diastolic blood pressure 2024-04-13 14:21:00 72 mm[Hg] [facility] Heart rate 2024-04-13 14:21:00 70 /min [facility] 2024-04-13 14:21:00 18 /min [facility] Body height 2024-04-13 14:21:00 170.2 cm [facility] Body weight 2024-04-13 14:21:00 98.839 kg [facility] BMI 2024-04-13 14:21:00 34.13 kg/m2 [facility] Oxygen saturation in Arterial blood by Pulse oximetry 2024-04-13 14:21:00 100 /min [facility] Systolic blood pressure 2024-03-01 15:01:00 115 mm[Hg] [facility] Diastolic blood pressure 2024-03-01 15:01:00 79 mm[Hg] [facility] Heart rate 2024-03-01 15:01:00 84 /min [facility] Body temperature 2024-03-01 15:01:00 36.11 Sandhya [facility] Body height 2024-03-01 15:01:00 170.2 cm [facility] 2024-03-01 15:01:00 100.245 kg [facility] BMI 2024-03-01 15:01:00 34.61 kg/m2 [facility] Oxygen saturation in Arterial blood by Pulse oximetry 2024-03-01 15:01:00 100 /min [facility] Systolic blood pressure 2024-02-17 21:26:00 106 mm[Hg] [facility] Diastolic blood pressure 2024-02-17 21:26:00 73 mm[Hg] [facility] Heart rate 2024-02-17 21:26:00 86 /min [facility] Body temperature 2024-02-17 21:26:00 36.28 Sandhya [facility] Respiratory rate 2024-02-17 21:26:00 18 /min [facility] Body height 2024-02-17 21:26:00 167.6 cm [facility] Body weight 2024-02-17 21:26:00 97.693 kg [facility] BMI 2024-02-17 21:26:00 34.76 kg/m2 [facility] Oxygen saturation in Arterial blood by Pulse oximetry 2024-02-17 21:26:00 99 /min [facility] Systolic blood pressure 2024-01-20 13:35:00 101 mm[Hg] [facility] hospital Diastolic blood pressure 2024-01-20 13:35:00 69 mm[Hg] [facility] acute hospital Heart rate 2024-01-20 13:35:00 65 /min [facility] Body temperature 2024-01-20 13:35:00 36.94 Sandhya [facility] Body height 2024-01-20 13:35:00 170.2 cm [facility] Body weight 2024-01-20 13:35:00 98.431 kg [facility] BMI 2024-01-20 13:35:00 33.99 kg/m2 [facility] Oxygen saturation in Arterial blood by Pulse oximetry 2024-01-20 13:35:00 99 /min [facility] acute hospital Systolic blood pressure 2024-01-18 20:48:00 125 mm[Hg] [facility] acute hospital Diastolic blood pressure 2024-01-18 20:48:00 86 mm[Hg] [facility] acute hospital Heart rate 2024-01-18 20:48:00 75 /min [facility] Body height 2024-01-18 20:48:00 170.2 cm [facility] Body weight 2024-01-18 20:48:00 97.659 kg [facility] BMI 2024-01-18 20:48:00 33.72 kg/m2 [facility] Oxygen saturation in Arterial blood by Pulse oximetry 2024-01-18 20:48:00 97 /min [facility] acute hospital Systolic blood pressure 2023-11-16 17:12:00 112 mm[Hg] [facility] acute hospital Diastolic blood pressure 2023-11-16 17:12:00 76 mm[Hg] [facility] acute hospital Heart rate 2023-11-16 17:12:00 64 /min [facility] Body height 2023-11-16 17:12:00 170.2 cm [facility] Body weight 2023-11-16 17:12:00 100.064 kg [facility] BMI 2023-11-16 17:12:00 34.55 kg/m2 [facility] Oxygen saturation in Arterial blood by Pulse oximetry 2023-11-16 17:12:00 99 /min [facility] acute hospital Systolic blood pressure 2023-11-16 14:31:00 130 mm[Hg] [facility] acute hospital Diastolic blood pressure 2023-11-16 14:31:00 86 mm[Hg] [facility] acute hospital Heart rate 2023-11-16 14:31:00 72 /min [facility] Body temperature 2023-11-16 14:31:00 36.5 Sandhya [facility] Respiratory rate 2023-11-16 14:31:00 18 /min [facility] Body height 2023-11-16 14:31:00 170.2 cm [facility] Body weight 2023-11-16 14:31:00 100.245 kg [facility] BMI 2023-11-16 14:31:00 34.61 kg/m2 [facility] Oxygen saturation in Arterial blood by Pulse oximetry 2023-11-16 14:31:00 100 /min [facility] acute [facility] Systolic blood pressure 2023-10-27 05:54:00 115 mm[Hg] [facility] acute hospital Diastolic blood pressure 2023-10-27 05:54:00 78 mm[Hg] [facility] acute hospital Heart rate 2023-10-27 05:54:00 70 /min [facility] Respiratory rate 2023-10-27 05:54:00 16 /min [facility] Oxygen saturation in Arterial blood by Pulse oximetry 2023-10-27 05:54:00 99 /min [facility] hospital Body temperature 2023-10-27 03:55:00 37.11 Sandhya [facility] Body height 2023-10-27 03:55:00 170.2 cm [facility] Body weight 2023-10-27 03:55:00 96.163 kg [facility] BMI 2023-10-27 03:55:00 33.20 kg/m2 [facility] Systolic blood pressure 2023-08-25 19:55:00 105 mm[Hg] [facility] acute hospital Diastolic blood pressure 2023-08-25 19:55:00 68 mm[Hg] [facility] acute hospital Heart rate 2023-08-25 19:55:00 80 /min [facility] Body temperature 2023-08-25 19:55:00 36.33 Sandhya [facility] Body weight 2023-08-25 19:55:00 99.882 kg [facility] BMI 2023-08-25 19:55:00 34.49 kg/m2 [facility] Systolic blood pressure 2023-08-20 19:47:00 131 mm[Hg] [facility] acute hospital Diastolic blood pressure 2023-08-20 19:47:00 75 mm[Hg] [facility] acute hospital Heart rate 2023-08-20 19:47:00 68 /min [facility] Body temperature 2023-08-20 19:47:00 36.56 Sandhya [facility] Respiratory rate 2023-08-20 19:47:00 17 /min [facility] Body height 2023-08-20 19:47:00 170.2 cm [facility] Body weight 2023-08-20 19:47:00 96.344 kg [facility] BMI 2023-08-20 19:47:00 33.27 kg/m2 [facility] Systolic blood pressure 2023-08-16 15:00:00 110 mm[Hg] [facility] acute hospital Diastolic blood pressure 2023-08-16 15:00:00 80 mm[Hg] [facility] acute hospital Heart rate 2023-08-16 15:00:00 65 /min [facility] Body height 2023-08-16 15:00:00 170.2 cm [facility] Body weight 2023-08-16 15:00:00 97.796 kg [facility] BMI 2023-08-16 15:00:00 33.77 kg/m2 [facility] Oxygen saturation in Arterial blood by Pulse oximetry 2023-08-16 15:00:00 100 /min [facility] acute hospital Systolic blood pressure 2023-08-13 23:09:23 121 mm[Hg] [facility] acute hospital Diastolic blood pressure 2023-08-13 23:09:23 76 mm[Hg] General acute hospital Heart rate 2023-08-13 23:09:23 74 /min [facility] Respiratory rate 2023-08-13 23:09:23 18 /min [facility] Oxygen saturation in Arterial blood by Pulse oximetry 2023-08-13 23:09:23 98 /min [facility] Body temperature 2023-08-13 20:34:00 36.89 Sandhya [facility] Body height 2023-08-13 20:34:00 170.2 cm [facility] Body weight 2023-08-13 20:34:00 96.616 kg [facility] BMI 2023-08-13 20:34:00 33.36 kg/m2 [facility] Systolic blood pressure 2023-07-29 20:07:00 95 mm[Hg] [facility] acute hospital Diastolic blood pressure 2023-07-29 20:07:00 67 mm[Hg] [facility] acute hospital Heart rate 2023-07-29 20:07:00 105 /min [facility] Body temperature 2023-07-29 20:07:00 36.28 Sandhya [facility] Body height 2023-07-29 20:07:00 170.2 cm [facility] Body weight 2023-07-29 20:07:00 96.48 kg [facility] BMI 2023-07-29 20:07:00 33.31 kg/m2 [facility] Systolic blood pressure 2023-07-14 21:36:00 95 mm[Hg] [facility] acute hospital Diastolic blood pressure 2023-07-14 21:36:00 71 mm[Hg] [facility] acute hospital Heart rate 2023-07-14 21:36:00 76 /min [facility] Body temperature 2023-07-14 21:36:00 36.33 Sandhya [facility] Respiratory rate 2023-07-14 21:36:00 20 /min [facility] Body height 2023-07-14 21:36:00 170.2 cm [facility] Body weight 2023-07-14 21:36:00 96.163 kg [facility] BMI 2023-07-14 21:36:00 33.20 kg/m2 [facility] Oxygen saturation in Arterial blood by Pulse oximetry 2023-07-14 21:36:00 98 /min [facility] acute [facility] Systolic blood pressure 2023-07-07 21:03:00 101 mm[Hg] [facility] acute hospital Diastolic blood pressure 2023-07-07 21:03:00 67 mm[Hg] [facility] acute hospital Heart rate 2023-07-07 21:03:00 76 /min [facility] Body temperature 2023-07-07 21:03:00 36 Sandhya [facility] Body height 2023-07-07 21:03:00 170.2 cm [facility] Body weight 2023-07-07 21:03:00 96.752 kg [facility] BMI 2023-07-07 21:03:00 33.41 kg/m2 [facility] Systolic blood pressure 2023-07-01 21:39:00 116 mm[Hg] [facility] acute hospital Diastolic blood pressure 2023-07-01 21:39:00 73 mm[Hg] [facility] acute hospital Heart rate 2023-07-01 21:39:00 64 /min [facility] Body temperature 2023-07-01 21:39:00 36.17 Sandhya [facility] Respiratory rate 2023-07-01 21:39:00 18 /min [facility] Body height 2023-07-01 21:39:00 170.2 cm [facility] Body weight 2023-07-01 21:39:00 95.397 kg [facility] BMI 2023-07-01 21:39:00 32.94 kg/m2 [facility] Systolic blood pressure 2023-06-23 19:21:00 101 mm[Hg] [facility] acute hospital Diastolic blood pressure 2023-06-23 19:21:00 70 mm[Hg] [facility] acute hospital Heart rate 2023-06-23 19:21:00 73 /min [facility] Body temperature 2023-06-23 19:21:00 36.17 Sandhya [facility] Body height 2023-06-23 19:21:00 170.2 cm [facility] Body weight 2023-06-23 19:21:00 95.255 kg [facility] BMI 2023-06-23 19:21:00 32.89 kg/m2 [facility] Systolic blood pressure 2023-06-22 14:24:00 120 mm[Hg] [facility] acute hospital Diastolic blood pressure 2023-06-22 14:24:00 83 mm[Hg] [facility] acute hospital Heart rate 2023-06-22 14:24:00 67 /min [facility] Respiratory rate 2023-06-22 14:24:00 12 /min [facility] Body height 2023-06-22 14:24:00 170.2 cm [facility] Body weight 2023-06-22 14:24:00 96.344 kg [facility] BMI 2023-06-22 14:24:00 33.27 kg/m2 [facility] Oxygen saturation in Arterial blood by Pulse oximetry 2023-06-22 14:24:00 100 /min [facility] acute hospital Heart rate 2023-06-22 01:45:00 84 /min [facility] Oxygen saturation in Arterial blood by Pulse oximetry 2023-06-22 01:45:00 98 /min [facility] acute [facility] Systolic blood pressure 2023-06-22 01:00:00 119 mm[Hg] [facility] acute hospital Diastolic blood pressure 2023-06-22 01:00:00 85 mm[Hg] [facility] acute hospital Respiratory rate 2023-06-22 01:00:00 16 /min [facility] Body height 2023-06-22 00:11:00 170.2 cm [facility] Body weight 2023-06-22 00:11:00 95.255 kg [facility] BMI 2023-06-22 00:11:00 32.89 kg/m2 [facility] Systolic blood pressure 2023-06-17 02:18:00 120 mm[Hg] [facility] acute hospital Diastolic blood pressure 2023-06-17 02:18:00 82 mm[Hg] [facility] acute hospital Heart rate 2023-06-17 02:18:00 90 /min [facility] Body temperature 2023-06-17 02:18:00 37 Sandhya [facility] Respiratory rate 2023-06-17 02:18:00 16 /min [facility] Body height 2023-06-17 02:18:00 170.2 cm [facility] Body weight 2023-06-17 02:18:00 94.938 kg [facility] BMI 2023-06-17 02:18:00 32.78 kg/m2 [facility] Oxygen saturation in Arterial blood by Pulse oximetry 2023-06-17 02:18:00 98 /min [facility] acute [facility] Systolic blood pressure 2023-05-26 20:20:00 121 mm[Hg] [facility] acute hospital Diastolic blood pressure 2023-05-26 20:20:00 85 mm[Hg] [facility] acute hospital Heart rate 2023-05-26 20:20:00 71 /min [facility] Body temperature 2023-05-26 20:20:00 36.89 Sandhya [facility] Respiratory rate 2023-05-26 20:20:00 18 /min [facility] Body height 2023-05-26 20:20:00 170.2 cm [facility] Body weight 2023-05-26 20:20:00 96.253 kg [facility] BMI 2023-05-26 20:20:00 33.24 kg/m2 [facility] Oxygen saturation in Arterial blood by Pulse oximetry 2023-05-26 20:20:00 100 /min [facility] acute [facility] Systolic blood pressure 2023-05-10 21:05:00 123 mm[Hg] [facility] acute hospital Diastolic blood pressure 2023-05-10 21:05:00 80 mm[Hg] [facility] acute hospital Heart rate 2023-05-10 21:05:00 72 /min [facility] Body temperature 2023-05-10 21:05:00 36.56 Sandhya [facility] Body height 2023-05-10 21:05:00 170.2 cm [facility] Body weight 2023-05-10 21:05:00 95.391 kg [facility] BMI 2023-05-10 21:05:00 32.94 kg/m2 [facility] Systolic blood pressure 2023-05-06 17:28:00 126 mm[Hg] [facility] acute hospital Diastolic blood pressure 2023-05-06 17:28:00 84 mm[Hg] [facility] acute hospital Heart rate 2023-05-06 17:28:00 70 /min [facility] Respiratory rate 2023-05-06 17:28:00 20 /min [facility] Body height 2023-05-06 17:28:00 170.2 cm [facility] Body weight 2023-05-06 17:28:00 95.165 kg [facility] BMI 2023-05-06 17:28:00 32.86 kg/m2 [facility] Oxygen saturation in Arterial blood by Pulse oximetry 2023-05-06 17:28:00 97 /min [facility] Systolic blood pressure 2023-05-01 17:29:00 111 mm[Hg] [facility] acute hospital Diastolic blood pressure 2023-05-01 17:29:00 66 mm[Hg] [facility] acute hospital Heart rate 2023-05-01 17:29:00 69 /min [facility] Body temperature 2023-05-01 17:29:00 36.67 Sandhya [facility] Respiratory rate 2023-05-01 17:29:00 18 /min [facility] Oxygen saturation in Arterial blood by Pulse oximetry 2023-05-01 17:29:00 99 /min [facility] Body height 2023-04-26 11:43:00 170.2 cm [facility] Body weight 2023-04-26 11:43:00 93.6 kg [facility] BMI 2023-04-26 11:43:00 32.32 kg/m2 [facility] Systolic blood pressure 2023-04-23 21:50:00 112 mm[Hg] [facility] acute hospital Diastolic blood pressure 2023-04-23 21:50:00 76 mm[Hg] [facility] acute hospital Heart rate 2023-04-23 21:50:00 71 /min [facility] Respiratory rate 2023-04-23 21:50:00 16 /min [facility] Body height 2023-04-23 21:50:00 170.2 cm [facility] Body weight 2023-04-23 21:50:00 91.627 kg [facility] BMI 2023-04-23 21:50:00 31.64 kg/m2 [facility] Oxygen saturation in Arterial blood by Pulse oximetry 2023-04-23 21:50:00 99 /min [facility] Systolic blood pressure 2023-04-09 13:51:00 116 mm[Hg] [facility] acute hospital Diastolic blood pressure 2023-04-09 13:51:00 79 mm[Hg] [facility] acute hospital Heart rate 2023-04-09 13:51:00 81 /min [facility] Body temperature 2023-04-09 13:51:00 36.5 Sandhya [facility] Respiratory rate 2023-04-09 13:51:00 18 /min [facility] Body height 2023-04-09 13:51:00 170.2 cm [facility] 2023-04-09 13:51:00 91.082 kg [facility] BMI 2023-04-09 13:51:00 31.45 kg/m2 [facility] Oxygen saturation in Arterial blood by Pulse oximetry 2023-04-09 13:51:00 97 /min [facility] acute [facility] Systolic blood pressure 2023-04-09 13:51:00 116 mm[Hg] [facility] acute hospital Diastolic blood pressure 2023-04-09 13:51:00 79 mm[Hg] [facility] acute hospital Heart rate 2023-04-09 13:51:00 81 /min [facility] Body temperature 2023-04-09 13:51:00 36.5 Sandhya [facility] Respiratory rate 2023-04-09 13:51:00 18 /min [facility] Body height 2023-04-09 13:51:00 170.2 cm [facility] Body weight 2023-04-09 13:51:00 91.082 kg [facility] BMI 2023-04-09 13:51:00 31.45 kg/m2 [facility] Oxygen saturation in Arterial blood by Pulse oximetry 2023-04-09 13:51:00 97 /min [facility] Systolic blood pressure 2023-04-07 18:48:00 111 mm[Hg] [facility] acute hospital Diastolic blood pressure 2023-04-07 18:48:00 74 mm[Hg] [facility] acute hospital Heart rate 2023-04-07 18:48:00 87 /min [facility] 2023-04-07 18:48:00 36.67 Sandhya [facility] Respiratory rate 2023-04-07 18:48:00 18 /min [facility] Body height 2023-04-07 18:48:00 170.2 cm [facility] Body weight 2023-04-07 18:48:00 89.812 kg [facility] BMI 2023-04-07 18:48:00 31.01 kg/m2 [facility] Oxygen saturation in Arterial blood by Pulse oximetry 2023-04-07 18:48:00 100 /min [facility] acute hospital Systolic blood pressure 2023-04-05 18:56:00 124 mm[Hg] [facility] acute hospital Diastolic blood pressure 2023-04-05 18:56:00 79 mm[Hg] [facility] acute hospital Heart rate 2023-04-05 18:56:00 81 /min [facility] Body temperature 2023-04-05 18:56:00 35.83 Sandhya [facility] Respiratory rate 2023-04-05 18:56:00 20 /min [facility] Body height 2023-04-05 18:56:00 170.2 cm [facility] Body weight 2023-04-05 18:56:00 90.855 kg [facility] BMI 2023-04-05 18:56:00 31.37 kg/m2 [facility] Systolic blood pressure 2023-01-26 04:00:00 119 mm[Hg] [facility] acute hospital Diastolic blood pressure 2023-01-26 04:00:00 74 mm[Hg] [facility] acute hospital Heart rate 2023-01-26 04:00:00 75 /min [facility] Respiratory rate 2023-01-26 04:00:00 12 /min [facility] Oxygen saturation in Arterial blood by Pulse oximetry 2023-01-26 04:00:00 99 /min [facility] Body temperature 2023-01-26 01:59:00 37.28 Sandhya [facility] Body height 2023-01-26 01:59:00 170.2 cm [facility] Body weight 2023-01-26 01:59:00 90.719 kg [facility] BMI 2023-01-26 01:59:00 31.32 kg/m2 [facility] Systolic blood pressure 2023-01-18 19:36:00 122 mm[Hg] [facility] acute hospital Diastolic blood pressure 2023-01-18 19:36:00 83 mm[Hg] [facility] acute hospital Heart rate 2023-01-18 19:36:00 75 /min [facility] Body temperature 2023-01-18 19:36:00 36.83 Sandhya [facility] Respiratory rate 2023-01-18 19:36:00 16 /min [facility] Body height 2023-01-18 19:36:00 170.2 cm [facility] Body weight 2023-01-18 19:36:00 91.581 kg [facility] BMI 2023-01-18 19:36:00 31.62 kg/m2 [facility] Oxygen saturation in Arterial blood by Pulse oximetry 2023-01-18 19:36:00 99 /min [facility] acute hospital Systolic blood pressure 2023-01-18 15:43:00 113 mm[Hg] [facility] acute hospital Diastolic blood pressure 2023-01-18 15:43:00 73 mm[Hg] [facility] acute hospital Heart rate 2023-01-18 15:43:00 75 /min [facility] Body temperature 2023-01-18 15:43:00 35.67 Sandhya [facility] Respiratory rate 2023-01-18 15:43:00 17 /min [facility] Body height 2023-01-18 15:43:00 170.2 cm [facility] Body weight 2023-01-18 15:43:00 90.538 kg [facility] BMI 2023-01-18 15:43:00 31.26 kg/m2 [facility] Systolic blood pressure 2023-01-09 18:15:00 86 mm[Hg] [facility] acute hospital Diastolic blood pressure 2023-01-09 18:15:00 50 mm[Hg] [facility] acute hospital Heart rate 2023-01-09 18:15:00 77 /min [facility] Body temperature 2023-01-09 18:15:00 36.83 Sandhya [facility] Respiratory rate 2023-01-09 18:15:00 18 /min [facility] Oxygen saturation in Arterial blood by Pulse oximetry 2023-01-09 18:15:00 99 /min [facility] Body height 2023-01-09 05:47:00 170.2 cm [facility] Body weight 2023-01-09 05:47:00 90.719 kg [facility] BMI 2023-01-09 05:47:00 31.32 kg/m2 [facility] Systolic blood pressure 2023-01-08 22:52:00 112 mm[Hg] [facility] acute hospital Diastolic blood pressure 2023-01-08 22:52:00 65 mm[Hg] [facility] acute hospital Heart rate 2023-01-08 22:52:00 107 /min [facility] Body temperature 2023-01-08 22:52:00 36.72 Sandhya [facility] Respiratory rate 2023-01-08 22:52:00 18 /min [facility] Oxygen saturation in Arterial blood by Pulse oximetry 2023-01-08 22:52:00 100 /min [facility] Body height 2023-01-08 15:28:00 170.2 cm [facility] Body weight 2023-01-08 15:28:00 90.719 kg [facility] BMI 2023-01-08 15:28:00 31.32 kg/m2 [facility] Systolic blood pressure 2023-01-04 14:17:00 110 mm[Hg] [facility] acute hospital Diastolic blood pressure 2023-01-04 14:17:00 71 mm[Hg] [facility] acute hospital Heart rate 2023-01-04 14:17:00 73 /min [facility] Body temperature 2023-01-04 14:17:00 36.39 Sandhya [facility] Respiratory rate 2023-01-04 14:17:00 20 /min [facility] Body height 2023-01-04 14:17:00 170.2 cm [facility] Body weight 2023-01-04 14:17:00 90.81 kg [facility] BMI 2023-01-04 14:17:00 31.36 kg/m2 [facility] Systolic blood pressure 2023-01-02 05:49:00 112 mm[Hg] General acute hospital Diastolic blood pressure 2023-01-02 05:49:00 72 mm[Hg] General acute hospital Heart rate 2023-01-02 05:49:00 77 /min [facility] Respiratory rate 2023-01-02 05:49:00 16 /min [facility] Oxygen saturation in Arterial blood by Pulse oximetry 2023-01-02 05:49:00 100 /min [facility] acute hospital Body temperature 2023-01-02 05:34:00 36.61 Sandhya [facility] Body height 2023-01-02 03:54:00 162.6 cm [facility] Body weight 2023-01-02 03:54:00 89.812 kg [facility] BMI 2023-01-02 03:54:00 33.99 kg/m2 [facility] Systolic blood pressure 2022-12-21 15:58:00 110 mm[Hg] [facility] acute hospital Diastolic blood pressure 2022-12-21 15:58:00 68 mm[Hg] General acute hospital Heart rate 2022-12-21 15:58:00 75 /min [facility] Body temperature 2022-12-21 15:58:00 36.39 Sandhya [facility] Respiratory rate 2022-12-21 15:58:00 18 /min [facility] Body height 2022-12-21 15:58:00 170.2 cm [facility] Body weight 2022-12-21 15:58:00 89.54 kg [facility] BMI 2022-12-21 15:58:00 30.92 kg/m2 [facility] Oxygen saturation in Arterial blood by Pulse oximetry 2022-12-21 15:58:00 100 /min [facility] acute hospital Systolic blood pressure 2022-12-11 15:46:00 107 mm[Hg] [facility] acute hospital Diastolic blood pressure 2022-12-11 15:46:00 64 mm[Hg] General acute hospital Heart rate 2022-12-11 15:46:00 74 /min [facility] Body temperature 2022-12-11 15:46:00 35.89 Sandhya [facility] Respiratory rate 2022-12-11 15:46:00 18 /min [facility] Body height 2022-12-11 15:46:00 170.2 cm [facility] Body weight 2022-12-11 15:46:00 88.225 kg [facility] BMI 2022-12-11 15:46:00 30.46 kg/m2 [facility] Systolic blood pressure 2022-12-09 16:23:00 119 mm[Hg] [facility] acute hospital Diastolic blood pressure 2022-12-09 16:23:00 70 mm[Hg] General acute hospital Heart rate 2022-12-09 16:23:00 65 /min [facility] Body temperature 2022-12-09 16:23:00 36.83 Sandhya [facility] Respiratory rate 2022-12-09 16:23:00 18 /min [facility] Body height 2022-12-09 16:23:00 170.2 cm [facility] Body weight 2022-12-09 16:23:00 89.982 kg [facility] BMI 2022-12-09 16:23:00 31.07 kg/m2 [facility] Systolic blood pressure 2022-11-12 20:14:00 128 mm[Hg] General acute hospital Diastolic blood pressure 2022-11-12 20:14:00 75 mm[Hg] General acute hospital Heart rate 2022-11-12 20:14:00 67 /min [facility] Body temperature 2022-11-12 20:14:00 36.67 [facility] [facility] rate 2022-11-12 20:14:00 20 /min [facility] Body height 2022-11-12 20:14:00 170.2 cm [facility] Body weight 2022-11-12 20:14:00 88.962 kg [facility] BMI 2022-11-12 20:14:00 30.72 kg/m2 [facility] Systolic blood pressure 2022-10-22 20:14:00 112 mm[Hg] [facility] acute hospital Diastolic blood pressure 2022-10-22 20:14:00 74 mm[Hg] General acute hospital Heart rate 2022-10-22 20:14:00 72 /min [facility] Body temperature 2022-10-22 20:14:00 36.67 Sandhya [facility] Respiratory rate 2022-10-22 20:14:00 18 /min [facility] Body weight 2022-10-22 20:14:00 88.451 kg [facility] BMI 2022-10-22 20:14:00 30.54 kg/m2 [facility] Systolic blood pressure 2022-09-28 13:01:00 104 mm[Hg] General acute hospital Diastolic blood pressure 2022-09-28 13:01:00 63 mm[Hg] General acute hospital Heart rate 2022-09-28 13:01:00 75 /min [facility] Body temperature 2022-09-28 13:01:00 36.72 Sandhya [facility] Respiratory rate 2022-09-28 13:01:00 18 /min [facility] Oxygen saturation in Arterial blood by Pulse oximetry 2022-09-28 13:01:00 100 /min [facility] acute hospital Body weight 2022-09-26 22:36:00 88.451 kg [facility] BMI 2022-09-26 22:36:00 30.54 kg/m2 [facility] Respiratory rate 2022-09-28 02:10:00 10 /min [facility] Oxygen saturation in Arterial blood by Pulse oximetry 2022-09-28 02:10:00 100 /min [facility] acute hospital Systolic blood pressure 2022-09-28 02:08:00 116 mm[Hg] General acute hospital Diastolic blood pressure 2022-09-28 02:08:00 76 mm[Hg] General acute hospital Body temperature 2022-09-28 01:42:00 36.67 Sandhya [facility] Heart rate 2022-09-28 00:40:00 72 /min [facility] 2022-09-26 22:36:00 88.451 kg [facility] BMI 2022-09-26 22:36:00 30.54 kg/m2 [facility] Systolic blood pressure 2022-09-24 05:00:00 118 mm[Hg] General acute hospital Diastolic blood pressure 2022-09-24 05:00:00 87 mm[Hg] General acute hospital Heart rate 2022-09-24 05:00:00 78 /min [facility] Respiratory rate 2022-09-24 05:00:00 20 /min [facility] Oxygen saturation in Arterial blood by Pulse oximetry 2022-09-24 05:00:00 100 /min [facility] acute hospital Body temperature 2022-09-24 03:13:00 37.78 Sandhya [facility] Body height 2022-09-24 03:13:00 170.2 cm [facility] Body weight 2022-09-24 03:13:00 88.86 kg [facility] BMI 2022-09-24 03:13:00 30.68 kg/m2 [facility] Systolic blood pressure 2022-09-23 21:15:00 114 mm[Hg] General acute hospital Diastolic blood pressure 2022-09-23 21:15:00 74 mm[Hg] General acute hospital Heart rate 2022-09-23 21:15:00 76 /min [facility] Body temperature 2022-09-23 21:15:00 36.56 Sandhya [facility] Respiratory rate 2022-09-23 21:15:00 18 /min [facility] Body height 2022-09-23 21:15:00 170.2 cm [facility] Body weight 2022-09-23 21:15:00 89.495 kg [facility] BMI 2022-09-23 21:15:00 30.90 kg/m2 [facility] Systolic blood pressure 2022-08-11 21:40:00 125 mm[Hg] General acute hospital Diastolic blood pressure 2022-08-11 21:40:00 76 mm[Hg] General acute hospital Heart rate 2022-08-11 21:40:00 71 /min [facility] Body temperature 2022-08-11 21:40:00 36.44 Sandhya [facility] Respiratory rate 2022-08-11 21:40:00 17 /min [facility] Body height 2022-08-11 21:40:00 170.2 cm [facility] Body weight 2022-08-11 21:40:00 86.864 kg [facility] BMI 2022-08-11 21:40:00 29.99 kg/m2 [facility] Respiratory rate 2022-04-27 08:02:00 18 /min [facility] Body height 2022-04-27 08:02:00 170.2 cm [facility] Body weight 2022-04-27 08:02:00 91.173 kg [facility] BMI 2022-04-27 08:02:00 31.48 kg/m2 [facility] Oxygen saturation in Arterial blood by Pulse oximetry 2022-04-27 08:02:00 99 /min [facility] acute hospital Systolic blood pressure 2022-04-27 08:02:00 121 mm[Hg] General acute hospital Diastolic blood pressure 2022-04-27 08:02:00 82 mm[Hg] General acute hospital Heart rate 2022-04-27 08:02:00 85 /min [facility] Body temperature 2022-04-27 08:02:00 37.06 Sandhya [facility] Systolic blood pressure 2022-04-18 16:19:00 103 mm[Hg] General acute hospital Diastolic blood pressure 2022-04-18 16:19:00 69 mm[Hg] General acute hospital Heart rate 2022-04-18 16:19:00 84 /min [facility] Body temperature 2022-04-18 16:19:00 36.5 Sandhya [facility] Respiratory rate 2022-04-18 16:19:00 20 /min [facility] Body height 2022-04-18 16:19:00 170.2 cm [facility] Body weight 2022-04-18 16:19:00 91.491 kg [facility] BMI 2022-04-18 16:19:00 31.59 kg/m2 [facility] Systolic blood pressure 2022-04-02 18:22:00 122 mm[Hg] [place] [facility] Diastolic blood pressure 2022-04-02 18:22:00 73 mm[Hg] [facility] Heart rate 2022-04-02 18:22:00 74 /min [facility] Body temperature 2022-04-02 18:22:00 36 Sandhya [facility] Respiratory rate 2022-04-02 18:22:00 18 /min [facility] Body height 2022-04-02 18:22:00 170.2 cm [facility] Body weight 2022-04-02 18:22:00 92.59 kg [facility] BMI 2022-04-02 18:22:00 31.97 kg/m2 [facility] Procedures Procedure Date / Time Performed Performing Clinician Source XR KUB 2024-05-09 22:53:06 Vasiliy Sotomayor [facility] COLONOSCOPY (ENDO) 2024-05-09 20:11:47 Thais Marin [facility] COLONOSCOPY (ENDO) 2024-05-09 20:11:47 Thais Marin [facility] EGD (ENDO) 2024-05-09 20:06:13 Thais Marin [facility] EGD (ENDO) 2024-05-09 20:06:13 Thais Marin [facility] ESOPHAGOGASTRODUODENOSCOPY 2024-05-09 19:02:00 Ry Forman [facility] COLONOSCOPY 2024-05-09 19:02:00 Ry Forman [facility] POCT TEST 2024-05-09 00:00:00 Jami Maher [facility] POCT TEST 2024-05-09 00:00:00 Jami Maher [facility] POCT MOLECULAR STREP 2024-02-17 21:45:00 Unknown, Attending [facility] POCT SARS-COV-2 ANTIGEN (BIN AX NOW) 2024-02-17 21:27:00 Clary Richmond [facility] POCT TEST 2024-01-20 00:00:00 Thais Marin [facility] REFERRAL- REQUEST/RESPONSE 2023-11-12 18:24:24 Doctor Unassigned, [place] [facility] POCT TEST 2023-08-20 19:56:00 Pete Owens [facility] ASSIGNMENT OF BENEFITS 2023-08-13 22:13:19 Doctor Unassigned, [place] [facility] COMP. METABOLIC PANEL ([id number]) 2023-08-13 21:08:00 Bogdan Gabriel [facility] TOTAL BETA HCG ASSAY 2023-08-13 21:08:00 Bogdan Gabriel [facility] CBC WITH DIFF 2023-08-13 21:08:00 Bogdan Gabriel [facility] URINALYSIS 2023-08-13 21:08:00 Bogdan Gabriel [facility] HB ABO GROUPING 2023-08-13 21:08[facility]00 [facility] CONSENT/REFUSAL FOR DIAGNOSI S AND TREATMENT 2023-08-13 20:17:50 Doctor Unassigned, [place] [facility] C-REACTIVE PROTEIN 2023-07-29 20:37:00 Mariama Carrera [facility] COMP. METABOLIC PANEL ([id number]) 2023-07-29 20:37:00 Mariama Carrera [facility] SEDIMENTATION RATE 2023-07-29 20:37:00 Mariama Carrera [facility] CBC WITH DIFF 2023-07-29 20:37:00 Mariama Carrera [facility] URINALYSIS 2023-07-29 20:37:00 Mariama Carrera [facility] EXTERNAL PROVIDER RECORDS 2023-07-23 06:01:00 Doctor Unassigned, [place] [facility] URINE CULTURE 2023-07-01 21:55:00 Tawana Jean [facility] GALV ONLY - VAGINAL PATHOGEN S BY NUCLEIC ACID TESTING 2023-07-01 21:55:00 Tawana Jean [facility] POCT URINALYSIS 2023-07-01 21:39:00 Pete Owens [facility] CONSENT/REFUSAL FOR DIAGNOSI S AND TREATMENT 2023-06-22 00:07:05 Doctor Unassigned, [place] [facility] SLEEP STUDY DATA REPORT 2023-06-03 06:01:00 Doctor Unassigned, [place] [facility] US PELVIS COMPLETE WITH TRANSVAGINAL 2023-05-18 20:38:21 Abby Jordan [facility] MAGNESIUM 2023-05-01 10:09:00 [facility]OL[facility] (NA, K , CL, CO2, GLUCOSE, BUN, CREATININE, CA) 2023-05-01 10:09:00 Kathy Esquivel [facility] CBC WITHOUT DIFF 2023-05-01 10:09:00 Kathy Esquivel [facility] MAGNESIUM 2023-04-30 11:12:00 Chavezcolby Esquivel [facility] HEPATIC FUNCTION PANEL ([id number]) (ALB,T.PRO,BILI T,BU/BC,ALT,AST,ALK PHOS) 2023-04-30 11:12:00 Chavezcolby Esquivel [facility] BASIC METABOLIC PANEL (NA, K , CL, CO2, GLUCOSE, BUN, CREATININE, CA) 2023-04-30 11:12:00 Kathy Esquivel [facility] CBC WITHOUT DIFF 2023-04-30 11:12:00 Kathy Esquivel [facility] PROTHROMBIN TIME / INR 2023-04-30 11:12:00 Kathy Esquivel [facility] MR VENOGRAM HEAD W WO CONTRAST 2023-04-21 0 03[facility]22[facility] 2023-04-30 03:21[facility]29 [facility]IR[facility] BY PCR 2023-04-28 00:16:00 Tanja Hanson [facility] COVID-19 (ID NOW RAPID TESTING) 22:03:00 Tanja Hanson [facility] LAB ONLY COVID INTERPRETATION 2023-04-27 22:03:00 Tanja Hanson [facility] BASIC METABOLIC PANEL (NA, K , CL, CO2, GLUCOSE, BUN, CREATININE, CA) 2023-04-27 15:27:00 Ivonne Lozano [facility] CBC WITH DIFF 2023-04-27 15:27:00 Ivonne Lozano [facility] ELECTROENCEPHALOGRAM 2023-04-27 00:00:00 Ivonne Lozano [facility] CREATINE KINASE 2023-04-26 22:35:00 Devonte Veronica Tanja [facility] CT HEAD WO CONTRAST 2023-04-26 22:24:07 Tanja Hanson [facility] SURGICAL PATHOLOGY EXAM 2023-04-26 14:16:00 Bandar Baca [facility] HYSTEROSCOPY WITH DILATATION AND CURETTAGE 2023-04-26 13:06:00 Bandar Baca [facility] CBC WITH DIFF 2023-04-26 11:59:00 Tono Taylor [facility] HB ABO GROUPING 2023-04-26 11:59:00 Claudio Goldsmith [facility] POCT TEST 2023-04-26 11:40:00 Loreto Oconnell [facility] CONSENT/REFUSAL FOR DIAGNOSI S AND TREATMENT 2023-04-26 11:37:09 Doctor Unassigned, [place] [facility] ASSIGNMENT OF BENEFITS 2023-04-26 11:34:48 Doctor Unassigned, [place] [facility] URINALYSIS 2023-04-09 16:16:00 Jose Craig [facility] CREATINE KINASE 2023-04-09 15:50:00 Jose Craig [facility] C-REACTIVE PROTEIN 2023-04-09 15:50:00 [place], [facility] C4 COMPLEMENT 2023-04-09 15:50:00 [facility] IRON PANEL 2023-04-09 15:50:00 [facility] G6PD SCREENING TEST 2023-04-09 15:50:00 [facility] VITAMIN D, 25-OH 2023-04-09 15:50:00 [facility] QUANTIFERON-TB ASSAY 2023-04-09 15:50:00 [facility] THIOPURINE METHYLTRANSFERASE, RBC 2022-20 15:50:00 [facility] ANTI-SSA(RO) 2023-04-09 15:50:00 [facility] ANTI-DOUBLE STRANDED DNA 2023-04-09 15:50:00 [facility] QFT TB2 MINUS NIL 2023-04-09 15:50:00 [facility] LUPUS ANTICOAGULANT REFLEXIV E PANEL 2023-04-09 15:50:00 [facility] FERRITIN SERUM 2023-04-07 19:38:00 [facility] RHEUMATOID FACTOR 2023-04-07 19:38:00 Thais Marin [facility] COMP. METABOLIC PANEL ([id number]) 2023-04-07 19:38:00 Thais Marin [facility] SEDIMENTATION RATE 2023-04-07 19:38:00 Thais Marin [facility] CBC WITH DIFF 2023-04-07 19:38:00 Thais Marin [facility] ANTI-NUCLEAR ANTIBODY SCREEN 2023-04-07 19:38:00 Thais Marin [facility] HEPATITIS B SURFACE ANTIGEN 2023-04-07 19:38:00 Thais Marin [facility] HCV ANTIBODY 2023-04-07 19:38:00 Thais Marin [facility] GC & CHLAMYDIA AMPLIFIED ASSAY 2023-03-21 8 19:38:00 Thais Marin [facility] HSV 1 AND 2 GLYCOPROTEIN G IGG 2023-03-21 8 19:38:00 Thais Marin [facility] ADC OR ZACHARY ONLY - RPR 2023-04-07 19:38:00 Thais Marin [facility] HIV 1/2 AG-AB WITH REFLEX 2023-04-07 19:38:00 Thais Marin [facility] TRICHOMONAS AMPLIFIED ASSAY 2023-04-07 19:38:00 Thais Marin [facility] FERRITIN SERUM 2023-04-07 19:38:00 Jose Craig [facility] EKG-12 LEAD 2023-01-26 04:19:59 Gaurav John [facility] CT ABDOMEN PELVIS WO CONTRAST 2023-01-26 03:13:00 Gaurav John [facility] LIPASE 2023-01-26 02:21:00 Gaurav John [facility] COMP. METABOLIC PANEL ([id number]) 2023-01-26 02:21:00 Gaurav John [facility] CBC WITH DIFF 2023-01-26 02:21:00 Gaurav John [facility] URINALYSIS 2023-01-26 02:05:00 Gaurav John [facility] POCT TEST 2023-01-26 02:03:00 Gaurav John [facility] NOTICE OF PRIVACY PRACTICES 2023-01-26 01:50:27 Doctor Unassigned, [place] [facility] CONSENT/REFUSAL FOR DIAGNOSI S AND TREATMENT 2023-01-26 01:49:25 Doctor Unassigned, [place] [facility] ASSIGNMENT OF BENEFITS 2023-01-18 21:28:15 Doctor Unassigned, [place] [facility] CONSENT/REFUSAL FOR DIAGNOSI S AND TREATMENT 2023-01-18 19:32:06 Doctor Unassigned, [place] [facility] POCT TEST 2023-01-18 17:54:00 Bandar Baca [facility] CBC WITH DIFF 2023-01-09 08:24:00 Adum, Mariajose Gudino [facility] CBC WITH DIFF 2023-01-09 08:24:00 Adum, Mariajose L [facility] CBC WITHOUT DIFF 2023-01-09 04:08:00 Adum, Mariajose L [facility] CBC WITHOUT DIFF 2023-01-09 04:08:00 Adum, Mariajose Gudino [facility] US PELVIS LIMITED 2023-01-09 01:57:00 Adum, Mariajose Gudino [facility] PELVIS LIMITED 2023-01-09 01:57:00 Adum, Mariajose Gudino [facility] DILATION AND CURETTAGE 2023-01-09 00:05:00 Adum, Mariajose Gudino [facility] HYSTEROSCOPY 2023-01-09 00:05:00 Adum, Mariajose Gudino [facility] DIAGNOSTIC LAPAROSCOPY 2023-01-09 00:05:00 Adum, Mariajose Gudino [facility] LAPAROSCOPIC LYSIS OF ADHESIONS 00:05:00 Adum, Mariajose Gudino [facility] LAPAROSCOPIC OVARIAN CYST ASPIRATION 2023-01-09 00:05:00 Adum, Mariajose Gudino [facility] URINALYSIS 2023-01-08 16:47:00 Basilio [facility] URINALYSIS 2023-01-08 16:47:00 [facility] LIPASE 2023-01-08 16:01:00 Basilio [facility] COMP. METABOLIC PANEL ([id number]) 2023-01-08 16:01:00 Basilio [facility] TOTAL BETA HCG ASSAY 2023-01-08 16:01:00 Adum, Mariajose Gudino [facility] CBC WITH DIFF 2023-01-08 16:01:00 Basilio [facility] HB ABO GROUPING 2023-01-08 16:01:00 Basilio Clary [facility] LIPASE 2023-01-08 16:01:00 Clary Richmond [facility] COMP. METABOLIC PANEL ([id number]) 2023-01-08 16:01:00 Clary Richmond [facility] TOTAL BETA HCG ASSAY 2023-01-08 16:01:00 Mariajose Ramsey [facility] CBC WITH DIFF 2023-01-08 16:01:00 Clary Richmond [facility] HB ABO GROUPING 2023-01-08 16:01:00 Basilio [facility] CONSENT/REFUSAL FOR DIAGNOSI S AND TREATMENT 2023-01-08 15:23:42 Doctor Unassigned, [place] [facility] CONSENT/REFUSAL FOR DIAGNOSI S AND TREATMENT 2023-01-08 15:23:42 Doctor Unassigned, [place] [facility] DAY SURGERY - ADC 2023-01-08 05:01:00 Doctor Unassigned, [place] [facility] COMP. METABOLIC PANEL ([id number]) 2023-01-02 04:08:00 Gaurav John [facility] CBC WITH DIFF 2023-01-02 04:08:00 Gaurav John [facility] URINALYSIS 2023-01-02 04:08:00 Gaurav John [facility] HB ABO GROUPING 2023-01-02 04:08:00 Gaurav John [facility] NOTICE OF PRIVACY PRACTICES 2023-01-02 03:45:21 Doctor Unassigned, [place] [facility] CONSENT/REFUSAL FOR DIAGNOSI S AND TREATMENT 2023-01-02 03:41:52 Doctor Unassigned, [place] [facility] TOTAL BETA HCG ASSAY 2023-01-01 22:12:00 Wilbur Wilson [facility] POCT URINALYSIS 2022-12-21 16:05:00 Pete Owens [facility] AUTHORIZATION TO RELEASE PHI TO [facility] 2022-12-21 05:01:00 Doctor Unassigned, [place] [facility] POCT URINALYSIS W/O SPECIFIC GRAVITY 2022-12-11 15:38:00 Pete Owens [facility] POCT TEST 2022-12-11 15:37:00 Pete Owens [facility] POCT TEST 2022-12-09 17:56:00 Tawana Jean [facility] POCT URINALYSIS W/O SPECIFIC GRAVITY 2022-12-09 16:24:00 Tawana Jean [facility] REPORT OF 2022-12-09 05:01:00 Doctor Unassigned, [place] [facility] POCT TEST 2022-10-22 20:16:00 Tawana Jean [facility] PATIENT FINANCIAL POLICY 2022-10-22 20:09:06 Doctor Unassigned, [place] [facility] XR ANKLE <3 VW LEFT 2022-09-28 16:20:43 Dara Renosol [facility] XR ANKLE <3 VW LEFT 2022-09-28 16:20:43 Dara Renosol [facility] DILATION AND CURETTAGE 2022-09-28 00:56:00 Dara Renosol [facility] DILATION AND CURETTAGE 2022-09-28 00:56:00 Dara Renosol [facility] FIRST TRIMESTER LESS THAN 14 WEEKS WITH TRANSVAGINAL 2022-09-27 02:21:11 Winifred James [facility] FIRST TRIMESTER LESS THAN 14 WEEKS WITH TRANSVAGINAL 2022-09-27 02:21:11 Winifred James [facility] COMP. METABOLIC PANEL ([id number]) 2022-09-26 23:14:00 Winifred James [facility] TOTAL BETA HCG ASSAY 2022-09-26 23:14:00 Winifred James [facility] CBC WITH DIFF 2022-09-26 23:14:00 Winifred James [facility] PROTHROMBIN TIME / INR 2022-09-26 23:14:00 Winifred James [facility] COMP. METABOLIC PANEL ([id number]) 2022-09-26 23:14:00 Winifred James [facility] TOTAL BETA HCG ASSAY 2022-09-26 23:14:00 Winifred James [facility] CBC WITH DIFF 2022-09-26 23:14:00 Winifred James [facility] PROTHROMBIN TIME / INR 2022-09-26 23:14:00 Winifred James [facility] CONSENT/REFUSAL FOR DIAGNOSI S AND TREATMENT 2022-09-26 22:23:31 Doctor Unassigned, [place] [facility] CONSENT/REFUSAL FOR DIAGNOSI S AND TREATMENT 2022-09-26 22:23:31 Doctor Unassigned, [place] [facility] US FIRST TRIMESTER LESS THAN 14 WEEKS WITH TRANSVAGINAL 2022-09-24 06:22:21 Ariana Castro [facility] POCT TEST 2022-09-24 04:43:00 Paige Melissa [facility] BASIC METABOLIC PANEL (NA, K , CL, CO2, GLUCOSE, BUN, CREATININE, CA) 2022-09-24 04:20:00 Ariana Castro [facility] TOTAL BETA HCG ASSAY 2022-09-24 04:20:00 Ariana Castro [facility] CBC WITH DIFF 2022-09-24 04:20:00 Ariana Castro [facility] ASSIGNMENT OF BENEFITS 2022-09-24 03:31:15 Doctor Unassigned, [place] [facility] CONSENT/REFUSAL FOR DIAGNOSI S AND TREATMENT 2022-09-24 03:08:55 Doctor Unassigned, [place] [facility] POCT URINALYSIS 2022-09-23 21:19:00 Tawana Jean [facility] POCT TEST 2022-08-11 21:40:00 Tawana Jean [facility] REPORT OF 2022-08-11 06:01:00 Doctor Unassigned, [place] [facility] POCT URINALYSIS W/O SPECIFIC GRAVITY 2022-08-11 00:00:00 Tawana Jean [facility] CBC WITH DIFF 2022-04-27 08:22:00 Paige Melissa [facility] POCT TEST 2022-04-27 08:22:00 Paige Melissa [facility] NOTICE OF [facility] 2022-04-27 07:55:47 Doctor Unassigned, [place] [facility] CONSENT/REFUSAL FOR DIAGNOSI S AND TREATMENT 2022-04-27 07:54:13 Doctor Unassigned, [place] [facility] EXTERNAL PROVIDER RECORDS 2022-04-03 05:01:00 Doctor Unassigned, [place] [facility] POCT TEST 2022-04-02 19:31:00 Louise Prado [facility] THYROID STIMULATING HORMONE 2022-04-02 19:05:00 Louise Prado [facility] Encounters Start Date/Time End Date/Time Encounter Type Admission Type Attending [facility] Facility Care Department Encounter ID Source 2023-12-21 14:16:00 [id number] [facility] 2023-10-29 10:17:01 [facility] [id number] [facility] 2023-01-04 10:43:39 Outpatient BANDAR ELLIS [facility] PLANNING CONSULTANT [id number] [facility] 2021-04-22 01:27:59 Emergency [facility] [id number] [facility] 2021-04-21 19:32:10 Emergency [facility] [id number] [facility] 2021-04-18 21:43:36 Emergency [facility] [id number] [facility] 2024-06-07 00:00:00 2024-06-07 00:00:00 Outpatient LUANN WALL [facility] [id number] [facility] 2024-05-29 00:00:00 2024-05-29 00:00:00 Outpatient LUANN WALL [facility] [id number] [facility] 2024-05-25 00:00:00 2024-05-25 15:04:31 Specialty Pharmacy Cari Martinez Shatara E [facility] 1.2.840.114 350.1.13.10 4.2.7.2.686 [id number] [facility] 2024-05-25 13:00:00 2024-05-25 14:04:09 Outpatient R LUANN DUMONT [facility] [id number] [facility] 2024-05-25 13:00:00 2024-05-25 14:04:09 Office Visit Luann Dumont [facility] 1.2.840.114 350.1.13.10 4.2.7.2.686 [id number] [facility] 2024-05-24 16:30:00 2024-05-24 16:30:00 Outpatient THAIS HALL [facility] [id number] [facility] 2024-05-11 00:00:00 2024-05-11 17:37:27 Refill Pipes, [facility] MEDICAL OFFICE BUILDING 1.2.840.114 350.1.13.10 4.2.7.2.686 [id number] [facility] 2024-05-09 17:02:00 2024-05-09 18:08:00 Emergency X COOKIE MELGAR JOHNNA [facility] ERT [id number] [facility] 2024-05-09 17:02:00 2024-05-09 18:08:00 Emergency Cookie Melgar [facility] 1.2.840.114 350.1.13.10 4.2.7.2.686 [id number] [facility] 2024-05-09 10:54:00 2024-05-09 16:43:00 Outpatient RY MOISE [facility] SONALI [id number] [facility] 2024-05-09 10:54:00 2024-05-09 16:43:00 Hospital Encounter Ry Forman [facility] 1.2.840.114 350.1.13.10 4.2.7.2.686 [id number] [facility] 2024-05-09 11:45:00 2024-05-09 12:45:00 Surgery Ry Forman [facility] 1.2.840.114 350.1.13.10 4.2.7.2.686 [id number] [facility] 2024-04-22 00:00:00 2024-04-23 02:02:21 Mobile Device Encounter Sarah [facility] MEDICAL OFFICE BUILDING 1.2.840.114 350.1.13.10 4.2.7.2.686 [id number] [facility] 2024-04-18 00:00:00 2024-04-18 11:19:09 Telephone Tawnya Gan [facility] 1.2.840.114 350.1.13.10 4.2.7.2.686 [id number] [facility] 2024-04-13 09:00:00 2024-04-13 10:00:00 Office Visit Sarah [facility] MEDICAL OFFICE BUILDING 1.2.840.114 350.1.13.10 4.2.7.2.686 [id number] [facility] 2024-04-13 09:00:00 2024-04-13 09:00:00 Outpatient R SARAH [facility] [id number] [facility] 2024-04-11 00:00:00 2024-04-11 10:53:01 Telephone Tawnya Gan [facility] 1.2.840.114 350.1.13.10 4.2.7.2.686 [id number] [facility] 2024-04-04 00:00:00 2024-04-04 12:42:55 Specialty Pharmacy Norma Shandra Nic Norma Shandra Nic [facility] 1.2.840.114 350.1.13.10 4.2.7.2.686 [id number] [id number] [facility] 2024-04-04 00:00:00 2024-04-04 12:38:29 Specialty Pharmacy MackenziematthewkokoShandra Norma Shandra Nic [facility] 1.2840.114 350.1.13.10 4.2.7.2.686 [id number] [facility] 2024-04-04 10:30:00 2024-04-04 10:30:00 Outpatient LUDY MENJIVAR [facility] [id number] [facility] 2024-04-04 00:00:00 2024-04-04 09:00:54 Specialty Pharmacy Azalea Dotson Sudha [facility] 1.2840.114 350.1.13.10 4.2.7.2.686 [id number] [facility] 2024-04-03 10:20:00 2024-04-03 10:20:00 Outpatient LUDY MENJIVAR [facility] [id number] [facility] 2024-03-15 11:00:00 2024-03-15 11:00:00 Outpatient R IRA SMITH [facility] [id number] [facility] 2024-03-03 00:00:00 2024-03-03 14:25:42 Specialty Pharmacy Mary Valencia Tamara L [facility] 1.2.840.114 350.1.13.10 4.2.7.2.686 [id number] [facility] 2024-03-02 00:00:00 2024-03-02 09:12:24 Specialty Pharmacy Amadeo Cedeño Gary [facility] 1.2.840.114 350.1.13.10 4.2.7.2.686 [id number] [facility] 2024-03-01 11:15:00 2024-03-01 11:30:00 Addiction Psychiatrist Visit Lab, [facility] Luann Dumont Lab, [facility] 1.2.840.114 350.1.13.10 4.2.7.2.686 [id number] [facility] 2024-03-01 10:00:00 2024-03-01 11:03:21 Outpatient R LUANN DUMONT [facility] [id number] [facility] 2024-03-01 10:00:00 2024-03-01 11:03:21 Office Visit Luann Dumont [facility] 1.2.840.114 350.1.13.10 4.2.7.2.686 [id number] [facility] 2024-01-20 00:00:00 2024-02-26 18:24:48 Patient Secure Msg Thais Marin [facility] OFF[facility] BUILD[facility] 1.2.840.114 350.1.13.10 4.2.7.2.686 [id number] [facility] 2024-02-24 00:00:00 2024-02-24 17:21:48 Clinic Assessment Sarah [facility] MEDICAL OFFICE BUILDING 1.2.840.114 350.1.13.10 4.2.7.2.686 [id number] [facility] 2024-02-24 16:00:00 2024-02-24 16:00:00 Outpatient R SARAH [facility] [id number] [facility] 2024-02-23 00:00:00 2024-02-23 08:00:38 Patient Secure Msg Mirella Marinlie [facility]?REGINAMarlene [facility] MEDICAL OFFICE BUILDING 1.2.840.114 350.1.13.10 4.2.7.2.686 [id number] [facility] 2024-02-21 00:00:00 2024-02-21 11:15:36 Specialty Pharmacy Domenica Ludwig Monique [facility] 1.2.840.114 350.1.13.10 4.2.7.2.686 [id number] [id number] [facility] 2024-02-17 16:20:00 2024-02-17 16:40:00 Urgent Care Sandra Conley, Attending [facility]?GERARDO [facility] MEDICAL OFFICE BUILDING 1.2.840.114 350.1.13.10 4.2.7.2.686 [id number] [facility] 2024-02-17 16:20:00 2024-02-17 16:20:00 Outpatient R SANDRA CONLEY [facility] [id number] [facility] 2024-02-16 00:00:00 2024-02-16 16:41:31 Telephone Wade Morse Steven [facility] 1.2.840.114 350.1.13.10 4.2.7.2.686 [id number] [facility] 2024-02-08 13:00:00 2024-02-08 13:00:00 Outpatient R IRA SMITH [facility] [id number] [facility] 2024-02-07 15:05:00 2024-02-07 15:05:00 Outpatient R THAIS MARIN [facility] [id number] [facility] 2024-01-25 00:00:00 2024-01-25 16:15:42 Patient Secure Msg Doctor Unassigned, [place] Doctor Unassigned, [place] [facility] MEDICAL OFFICE BUILDING 1.2.840.114 350.1.13.10 4.2.7.2.686 [id number] [facility] 2024-01-21 00:00:00 2024-01-21 15:32:45 Telephone Azalea Dotson [facility] 1.2.840.114 350.1.13.10 4.2.7.2.686 [id number] [facility] 2024-01-20 00:00:00 2024-01-20 10:56:30 Patient Secure Msg Tania Thais Marlene [facility] MEDICAL OFFICE BUILDING 1.2.840.114 350.1.13.10 4.2.7.2.686 [id number] [facility] 2024-01-20 10:30:00 2024-01-20 10:45:00 Addiction Psychiatrist Visit Lab, David - Thais Mulligan [facility] MEDICAL OFFICE BUILDING 1.2.840.114 350.1.13.10 4.2.7.2.686 [id number] [facility] 2024-01-20 09:00:00 2024-01-20 09:10:36 Outpatient R THAIS MARIN [facility] [id number] [facility] 2024-01-20 09:00:00 2024-01-20 09:10:36 Office Visit Thais Marin Marlene [facility] MEDICAL OFFICE BUILDING 1.2.840.114 350.1.13.10 4.2.7.2.686 [id number] [facility] 2024-01-19 08:30:00 2024-01-19 08:30:00 Outpatient R THAIS MARIN [facility] [id number] [facility] 2024-01-18 15:30:2024-01-18 16:00:00 Office Visit Ira Smith [facility] MEDICAL OFFICE BUILDING 1..840.114 350.1.13.10 4.2.7.2.686 [id number] [facility] 2024-01-18 15:30:00 2024-01-18 15:30:00 Outpatient R SARAH [facility] [id number] [facility] 2023-07-14 00:00:00 2024-01-03 11:59:22 Letter (Out) Tawnya Gan [facility] ([facility]) 1..840.114 350.1.13.10 4.2.7.2.686 [id number] [facility] 2023-11-26 00:00:00 2023-12-13 14:08:[address] Lowe [facility] 1..840.114 350.1.13.10 4.2.7.2.686 [id number] [facility] 2023-12-10 15:00:00 2023-12-10 15:00:00 Outpatient R THAIS MARIN [facility] [id number] [facility] 2023-12-02 00:00:00 2023-12-02 14:53:27 Telephone Thais Marin [facility] AM[facility] MED[facility] OFF[facility] BUILD[facility] 1.2.840.114 350.1.13.10 4.2.7.2.686 [id number] [facility] 2023-12-01 11:00:00 2023-12-01 11:00:00 Outpatient R THAIS MARIN [facility] [id number] [facility] 2023-11-24 00:00:00 2023-11-25 09:52:44 Patient Secure Msg Thais Marin [facility] 1.2.840.114 350.1.13.10 4.2.7.2.686 [id number] [facility] 2023-11-19 00:00:00 2023-11-24 15:03:15 Patient Secure MsJuan Mondragon [facility] 1.2.840.114 350.1.13.10 4.2.7.2.686 [id number] [id number] [facility] 2023-11-16 00:00:00 2023-11-18 10:32:20 [facility] 1.2.840.114 350.1.13.10 4.2.7.2.686 [id number] [facility] 2023-11-17 00:00:00 2023-11-17 15:54:10 Refill Thais Marin [facility] MEDICAL OFFICE BUILDING 1.2.840.114 350.1.13.10 4.2.7.2.686 [id number] [facility] 2023-11-16 12:00:00 2023-11-16 12:30:00 Office Visit Pipkwaku [facility] MEDICAL OFFICE BUILDING 1.2.840.114 350.1.13.10 4.2.7.2.686 [id number] [facility] 2023-11-16 09:30:00 2023-11-16 10:32:49 Outpatient R LUDY BRIDGES [facility] [id number] [facility] 2023-11-16 09:30:00 2023-11-16 10:32:49 Office Visit Juan Reece Vijaya Laxmi [facility] 1.2.840.114 350.1.13.10 4.2.7.2.686 [id number] [facility] 2023-10-26 00:00:00 2023-11-01 11:14:[address] [facility] 1.2.840.114 350.1.13.10 4.2.7.2.686 [id number] [id number] [facility] 2023-10-26 22:57:00 2023-10-27 01:00:00 Emergency X PAIGE MELISSA [facility] ERT [id number] [facility] 2023-10-26 22:57:00 2023-10-27 01:00:00 Emergency Paige Melissa [facility] 1.2.840.114 350.1.13.10 4.2.7.2.686 [id number] [facility] 2023-10-25 00:00:00 2023-10-25 17:13:10 Telephone Pipes, [facility] MEDICAL OFFICE BUILDING 1.2.840.114 350.1.13.10 4.2.7.2.686 [id number] [id number] [facility] 2023-10-20 15:00:00 2023-10-20 16:41:08 Outpatient R LANCE GILMAN [facility] [id number] [facility] 2023-10-20 15:00:00 2023-10-20 16:41:08 Office Visit Lance Gilman [facility] 1.2.840.114 350.1.13.10 4.2.7.2.686 [id number] [facility] 2023-10-04 09:30:00 2023-10-04 09:30:00 Outpatient R TAWNYA GAN [facility] [id number] [facility] 2023-09-29 14:30:00 2023-09-29 14:30:00 Outpatient R [facility] [id number] [facility] 2023-09-27 08:00:00 2023-09-27 08:00:00 Outpatient R MIRANDA TAWANA [facility] [id number] [facility] 2023-09-22 13:45:00 2023-09-22 13:45:00 Outpatient R BOB FLORES CRAIG [facility] [id number] [facility] 2023-09-22 00:00:00 2023-09-22 00:00:00 Case Management Laurie Montejo [facility] 1.0.114 350.1.13.10 4.2.7.2.686 [id number] [facility] 2023-09-16 00:00:00 2023-09-16 00:00:00 Refill Juan Reece [facility] 1..114 350.1.13.10 4.2.7.2.686 [id number] [facility] 2023-09-16 00:00:00 2023-09-16 00:00:00 Patient Secure Juan Erickson [facility] 1..114 350.1.13.10 4.2.7.2.686 [id number] [facility] 2023-09-15 15:10:00 2023-09-15 16:12:53 Outpatient R LANCE GILMAN [facility] [id number] [facility] 2023-09-15 15:10:00 2023-09-15 16:12:53 Office Visit Lance Gilman [facility] 1..114 350.1.13.10 4.2.7.2.686 [id number] [facility] 2023-09-09 14:45:00 2023-09-09 14:45:00 Outpatient R TAWANA JEAN [facility] [id number] [facility] 2023-09-09 10:15:00 2023-09-09 11:28:12 Outpatient R BOB FLORES CRAIG [facility] [id number] [facility] 2023-09-09 10:15:00 2023-09-09 11:28:12 Ancillary Visit Laurie Montejo Craig L [facility] 1.840.114 350.1.13.10 4.2.7.2.686 [id number] [facility] 2023-09-09 00:00:00 2023-09-09 00:00:00 Refill Thais Marin [facility] MEDICAL OFFICE BUILDING 1.840.114 350.1.13.10 4.2.7.2.686 [id number] [facility] 2023-09-08 11:00:00 2023-09-08 11:00:00 Outpatient R THAIS MARIN [facility] [id number] [facility] 2023-09-07 00:00:00 2023-09-07 00:00:00 Telephone Malik Tawnya [facility] .840.114 350.1.13.10 4.2.7.2.686 [id number] [facility] 2023-09-06 09:30:00 2023-09-06 09:30:00 Outpatient R MALIK TAWNYA [facility] [id number] [facility] 2023-09-04 00:00:00 2023-09-04 00:00:00 Refill Kayleigh Marine [facility] MEDICAL OFFICE BUILDING 1.840.114 350.1.13.10 4.2.7.2.686 [id number] [facility] 2023-09-01 15:30:00 2023-09-01 15:30:00 Outpatient R MALIK TAWNYA [facility] [id number] [facility] 2023-09-01 00:00:00 2023-09-01 00:00:00 [facility] 1.2840.114 350.1.13.10 4.2.7.2.686 [id number] [facility] 2023-08-30 00:00:00 2023-08-30 00:00:00 Refill Pipes, [facility] MEDICAL OFFICE BUILDING 1.2.840.114 350.1.13.10 4.2.7.2.686 [id number] [facility] 2023-08-26 00:00:00 2023-08-26 00:00:00 Case Management Laurie Montejo [facility] BUILD[facility] 1.2840.114 350.1.13.10 4.2.7.2.686 [id number] [facility] 2023-08-26 00:00:00 2023-08-26 00:00:00 Refill Pipes, [facility] MEDICAL OFFICE BUILDING 1.2.840.114 350.1.13.10 4.2.7.2.686 [id number] [facility] 2023-08-26 00:00:00 2023-08-26 00:00:00 RefBronwyn Camp [facility] 1.2840.114 350.1.13.10 4.2.7.2.686 [id number] [facility] 2023-08-25 13:58:00 2023-08-25 23:59:00 Outpatient BRONWYN KWONG [facility] [id number] [facility] 2023-08-25 13:58:00 2023-08-25 23:59:00 Hospital Encounter Bronwyn Wellington [facility] 1.2.840.114 350.1.13.10 4.2.7.2.686 [id number] [facility] 2023-08-25 13:40:00 2023-08-25 14:51:03 Office Visit Bronwyn Wellington [facility] 1.2.840.114 350.1.13.10 4.2.7.2.686 [id number] [facility] 2023-08-20 13:00:00 2023-08-20 14:03:14 Outpatient R PETE OWENS [facility] [id number] [facility] 2023-08-20 13:00:00 2023-08-20 14:03:14 Nurse Visit Visit, David-Rmchp Nurse Pete Owens [facility] 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 [facility] 1..840.114 350.1.13.10 4.2.7.2.686 [id number] [facility] 2023-08-17 09:30:00 2023-08-17 09:30:00 Outpatient R JOCY MICHAEL [facility] [id number] [facility] 2023-08-17 00:00:00 2023-08-17 00:00:00 Case Management Laurie Montejo [facility] 1..840.114 350.1.13.10 4.2.7.2.686 [id number] [facility] 2023-08-16 09:00:00 2023-08-16 09:26:12 Outpatient R IRA SMITH [facility] [id number] [facility] 2023-08-16 09:00:00 2023-08-16 09:26:12 Office Visit Juwan Smithi [facility] MEDICAL OFFICE BUILDING 1.2840.114 350.1.13.10 4.2.7.2.686 [id number] [facility] 2023-08-13 14:35:00 2023-08-13 17:12:00 Emergency X BOGDAN GABRIEL [facility] ERT [id number] [facility] 2023-08-13 14:35:00 2023-08-13 17:12:00 Emergency Bogdan Gabriel [facility] 1.2840.114 350.1.13.10 4.2.7.2.686 [id number] [facility] 2023-08-13 13:15:00 2023-08-13 13:15:00 Outpatient R PETE OWENS [facility] [id number] [facility] 2023-08-13 00:00:00 2023-08-13 00:00:00 Patient Secure Msg Pete Owens [facility] 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 [facility] 1.2840.114 350.1.13.10 4.2.7.2.686 [id number] [facility] 2023-08-09 11:00:00 2023-08-09 11:00:00 Outpatient R JUL[facility]WAKU [facility] [id number] [facility] 2023-08-09 00:00:00 2023-08-09 00:00:00 Telephone Lorena Kirk [facility] BUILDING 1.840.114 350.1.13.10 4.2.7.2.686 [id number] [facility] 2023-08-02 00:00:00 2023-08-02 00:00:00 Telephone Bronwyn Wellington [facility] 1.2840.114 350.1.13.10 4.2.7.2.686 [id number] [facility] 2023-07-30 00:00:00 2023-07-30 00:00:00 Patient Secure Msg Bronwyn Wellington [facility] 1.0.114 350.1.13.10 4.2.7.2.686 [id number] [facility] 2023-07-29 14:05:00 2023-07-29 23:59:00 Hospital Encounter [facility] 1.0.114 350.1.13.10 4.2.7.2.686 [id number] [facility] 2023-07-29 15:00:00 2023-07-29 15:15:00 Addiction Psychiatrist Visit Lab, [facility] Juan Hernandez Emilio B [facility] 1..114 350.1.13.10 4.2.7.2.686 [id number] [facility] 2023-07-29 13:40:00 2023-07-29 14:40:01 Outpatient R [facility] [id number] [facility] 2023-07-29 13:40:00 2023-07-29 14:00:00 Office Visit [facility] 1..114 350.1.13.10 4.2.7.2.686 [id number] [facility] 2023-07-28 15:00:00 2023-07-28 15:00:00 Outpatient R [facility]ONWYN [facility] [id number] [facility] 2023-07-26 00:00:00 2023-07-26 00:00:00 Patient Secure Msg Mal[facility] ..114 350.1.13.10 4.2.7.2.686 [id number] [facility] 2023-07-23 00:00:00 2023-07-23 00:00:00 Orders Only Doctor Unassigned, [place] [facility] 1.84.114 350.1.13.10 4.2.7.2.686 [id number] [facility] 2023-07-21 00:00:00 2023-07-21 00:00:[address] [facility] MEDICAL OFF[facility] BUILD[facility] 1.840.114 350.1.13.10 4.2.7.2.686 [id number] [facility] 2023-07-14 15:30:00 2023-07-14 16:00:00 Office Visit Tawnya Gan [facility] 1.84.114 350.1.13.10 4.2.7.2.686 [id number] [facility] 2023-07-14 15:30:00 2023-07-14 15:30:00 Outpatient TAWNYA LEE [facility] [id number] [facility] 2023-07-14 14:00:00 2023-07-14 14:00:00 Outpatient TAWNYA LEE [facility] [id number] [facility] 2023-07-13 11:00:00 2023-07-13 11:00:00 Outpatient TAWNYA LEE [facility] [id number] [facility] 2023-07-13 00:00:00 2023-07-13 00:00:[address] [facility] MEDICAL OFFICE BUILDING 1..840.114 350.1.13.10 4.2.7.2.686 [id number] [facility] 2023-07-07 14:20:00 2023-07-07 15:54:59 Outpatient R BRONWYN [place] [facility] [id number] [facility] 2023-07-07 14:20:00 2023-07-07 15:54:59 Office Visit Bronwyn Wellington [facility] 1.2.840.114 350.1.13.10 4.2.7.2.686 [id number] [facility] 2023-07-05 00:00:00 2023-07-05 00:00:00 Case Management Tawana Jean [facility] 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 [facility] 1.2.840.114 350.1.13.10 4.2.7.2.686 [id number] [facility] 2023-07-05 00:00:00 2023-07-05 00:00:00 Patient Secure Msg Bronwyn Wellington [facility] 1.2.840.114 350.1.13.10 4.2.7.2.686 [id number] [facility] 2023-07-05 00:00:00 2023-07-05 00:00:00 Patient Secure Msg Tawana Jean [facility] 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 [facility] 1.2.840.114 350.1.13.10 4.2.7.2.686 [id number] [facility] 2023-07-02 00:00:00 2023-07-02 00:00:00 Telephone Tawana Jean [facility] 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 [facility] 1.2.840.114 350.1.13.10 4.2.7.2.686 [id number] [facility] 2023-07-01 14:45:00 2023-07-01 15:52:34 Outpatient R TAWANA JEAN [facility] [id number] [facility] 2023-07-01 14:45:00 2023-07-01 15:52:34 Office Visit Tawana Jean [facility] 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 [facility] 1.2.840.114 350.1.13.10 4.2.7.2.686 [id number] [facility] 2023-07-01 00:00:00 2023-07-01 00:00:00 Letter (Out) Tawana Jean [facility] 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 [facility] 1.2840.114 350.1.13.10 4.2.7.2.686 [id number] [facility] 2023-06-30 15:00:00 2023-06-30 15:00:00 Outpatient R TAWNYA GAN [facility] [id number] [facility] 2023-06-23 12:50:00 2023-06-23 14:31:22 Outpatient R BRONWYN [place] [facility] [id number] [facility] 2023-06-23 12:50:00 2023-06-23 14:31:22 Office Visit Bronwyn Wellington [facility] 1.840.114 350.1.13.10 4.2.7.2.686 [id number] [facility] 2023-06-23 00:00:00 2023-06-23 00:00:00 Patient Secure Msg Bronwyn Wellington [facility] 1.840.114 350.1.13.10 4.2.7.2.686 [id number] [facility] 2023-06-23 00:00:00 2023-06-23 00:00:00 Patient Secure Msg Doctor Unassigned, [place] [facility] 1.840.114 350.1.13.10 4.2.7.2.686 [id number] [facility] 2023-06-22 08:00:00 2023-06-22 09:11:03 Outpatient R UNRULY TRAN [facility] [id number] [facility] 2023-06-22 08:00:00 2023-06-22 09:11:03 Office Visit Juan Reece Emilio B [facility] MULTISPEC [facility] 1.114 350.1.13.10 4.2.7.2.686 [id number] [facility] 2023-06-22 00:00:00 2023-06-22 00:00:00 Telephone Bronwyn Wellington [facility] 1..114 350.1.13.10 4.2.7.2.686 [id number] [facility] 2023-06-21 18:13:00 2023-06-21 20:19:00 Emergency X JESSICA TORRES [facility] ERT [id number] [facility] 2023-06-21 18:13:00 2023-06-21 20:19:00 Emergency Jessica Torres [facility] 1..114 350.1.13.10 4.2.7.2.686 [id number] [id number] [facility] 2023-06-21 00:00:00 2023-06-21 00:00:00 Patient Secure Msg Thais Marin [facility] MEDICAL OFFICE BUILDING 1.114 350.1.13.10 4.2.7.2.686 [id number] [facility] 2023-06-20 00:00:00 2023-06-20 00:00:00 Telephone Thais Marin [facility] MEDICAL OFFICE BUILDING 1..114 350.1.13.10 4.2.7.2.686 [id number] [id number] [facility] 2023-06-17 00:00:00 2023-06-17 00:00:[address] Thais Liu [facility] MEDICAL OFFICE BUILDING 1.84.114 350.1.13.10 4.2.7.2.686 [id number] [id number] [facility] 2023-06-16 20:00:00 2023-06-16 20:36:02 Outpatient R IRENE MARI [facility] [id number] [facility] 2023-06-16 20:00:00 2023-06-16 20:36:02 Urgent Care Irene Mari Unknown, Attending [facility] MEDICAL OFFICE BUILDING 1..114 350.1.13.10 4.2.7.2.686 [id number] [facility] 2023-06-10 10:30:00 2023-06-10 10:30:00 Outpatient R ROMULO CHERRY STRAHIL [facility] [id number] [facility] 2023-06-03 10:00:00 2023-06-03 10:15:00 Addiction Psychiatrist Visit [facility] Sleep Lab Romulo Cherry [facility] 1..114 350.1.13.10 4.2.7.2.686 [id number] [facility] 2023-06-03 10:00:00 2023-06-03 10:00:00 Outpatient R ROMULO CHERRY STRAHIL [facility] [id number] [facility] 2023-06-03 00:00:00 2023-06-03 00:00:00 Orders Only Doctor Unassigned, [place] [facility] 1..114 350.1.13.10 4.2.7.2.686 [id number] [facility] 2023-06-01 09:00:00 2023-06-01 09:00:00 Outpatient R KETANROMULO SIEGEL KETANCHRISTALROMULO [facility] [id number] [facility] 2023-05-26 14:00:00 2023-05-26 14:41:13 Outpatient R THAIS MARIN [facility] [id number] [facility] 2023-05-26 14:00:00 2023-05-26 14:41:[address] [facility] MEDICAL OFFICE BUILDING 1.2.840.114 350.1.13.10 4.2.7.2.686 [id number] [facility] 2023-05-26 00:00:00 2023-05-26 00:00:00 Telephone Thais Marin [facility] MEDICAL OFFICE BUILDING 1.2.840.114 350.1.13.10 4.2.7.2.686 [id number] [id number] [facility] 2023-05-21 09:00:00 2023-05-21 09:00:00 Outpatient THAIS HALL [facility] [id number] [facility] 2023-05-18 13:32:49 2023-05-18 23:59:00 Outpatient R CARLITO MORAN [facility] [id number] [facility] 2023-05-18 13:00:00 2023-05-18 23:59:00 Hospital Encounter Carlito Moran [facility] 1..840.114 350.1.13.10 4.2.7.2.686 [id number] [facility] 2023-05-10 14:30:00 2023-05-10 15:53:08 Outpatient R CARLITO MORAN [facility] [id number] [facility] 2023-05-10 14:30:00 2023-05-10 15:53:08 Routine Visit Clinic, [facility] Resident Carlito Moran [facility] 1.0.114 350.1.13.10 4.2.7.2.686 [id number] [facility] 2023-05-06 11:30:00 2023-05-06 12:05:01 Outpatient R LORENA KIRK [facility] [id number] [facility] 2023-05-06 11:30:00 2023-05-06 12:05:01 Office Visit Lorena Kirk [facility] MEDICAL OFFICE BUILDING 1.84.114 350.1.13.10 4.2.7.2.686 [id number] [facility] 2023-05-06 00:00:00 2023-05-06 00:00:00 Letter (Out) Lorena Kirk [facility] MEDICAL OFFICE BUILDING 1.2.840.114 350.1.13.10 4.2.7.2.686 [id number] [id number] [facility] 2023-05-04 00:00:00 2023-05-04 00:00:00 Patient Secure Msg Doctor Unassigned, [place] [facility] 1.0.114 350.1.13.10 4.2.7.2.686 [id number] [facility] 2023-05-03 00:00:00 2023-05-03 00:00:00 Transition of Care Shy Posada 1.840.114 350.1.13.10 4.2.7.2.686 [id number] [facility] 2023-04-26 05:34:00 2023-05-01 17:08:00 Inpatient R LORENA KIRK [facility] E[facility] [id number] [facility] 2023-04-26 05:34:00 2023-05-01 17:08:00 Hospital Encounter Bandar Baca Moran, Carlito Armstrong Ronald, Lorena Mari [facility] 1.114 350.1.13.10 4.2.7.2.686 [id number] [facility] 2023-04-23 16:00:00 2023-04-23 17:14:36 Outpatient R THAIS MARIN [facility] [id number] [facility] 2023-04-23 16:00:00 2023-04-23 17:14:36 Office [address] Thais Marin [facility] MEDICAL OFFICE BUILDING 1.284.114 350.1.13.10 4.2.7.2.686 [id number] [facility] 2023-04-14 00:00:00 2023-04-14 00:00:00 Patient Secure Msg Umaña-Orti Jose webb [facility] 1.84.114 350.1.13.10 4.2.7.2.686 [id number] [id number] [facility] 2023-04-14 00:00:00 2023-04-14 00:00:00 Patient Secure Msg Doctor Unassigned, [place] [facility] MEDICAL OFFICE BUILDING 1.284.114 350.1.13.10 4.2.7.2.686 [id number] [facility] 2023-04-12 00:00:00 2023-04-12 00:00:00 Patient Secure Msg Doctor Unassigned, [place] [facility] 1.20.114 350.1.13.10 4.2.7.2.686 [id number] [facility] 2023-04-09 10:30:00 2023-04-09 10:45:00 Addiction Psychiatrist Visit Pcp-Ludy Park [facility] 1.2.840.114 350.1.13.10 4.2.7.2.686 [id number] [facility] 2023-04-09 08:30:00 2023-04-09 10:17:59 Outpatient R LUDY BRIDGES [facility] [id number] [facility] 2023-04-09 08:30:00 2023-04-09 10:17:59 Office Visit Jose Cardona Vijaya Laxmi [facility] 1.2840.114 350.1.13.10 4.2.7.2.686 [id number] [facility] 2023-04-09 00:00:00 2023-04-09 00:00:00 Letter (Out) Berthakaren Jose webb [facility] 1.2840.114 350.1.13.10 4.2.7.2.686 [id number] [id number] [facility] 2023-04-08 00:00:00 2023-04-08 00:00:00 Telephone Thais Marin [facility] MEDICAL OFFICE BUILDING 1.2.840.114 350.1.13.10 4.2.7.2.686 [id number] [id number] [facility] 2023-04-08 00:00:00 2023-04-08 00:00:00 Patient Secure Msg Doctor Unassigned, [place] [facility] MEDICAL OFFICE BUILDING 1.2840.114 350.1.13.10 4.2.7.2.686 [id number] [id number] [facility] 2023-04-07 14:15:00 2023-04-07 15:42:31 Addiction Psychiatrist Visit Lab, Ang - Db Thais Marin [facility] MEDICAL OFFICE BUILDING 1..114 350.1.13.10 4.2.7.2.686 [id number] [facility] 2023-04-07 13:30:00 2023-04-07 14:10:07 Outpatient R MIRELLA MARINLIE [facility] [id number] [facility] 2023-04-07 13:30:00 2023-04-07 14:10:07 Office Visit Thais Marin [facility] MED[facility] OFF[facility] BUILDING 1.840.114 350.1.13.10 4.2.7.2.686 [id number] [facility] 2023-04-05 13:15:00 2023-04-05 15:10:25 Outpatient R BANDAR BACA [facility] [id number] [facility] 2023-04-05 13:15:00 2023-04-05 15:10:25 Office [place] [facility] 1..114 350.1.13.10 4.2.7.2.686 [id number] [facility] 2023-03-23 13:00:00 2023-03-23 13:00:00 Outpatient R [facility] [id number] [facility] 2023-03-23 00:00:00 2023-03-23 00:00:00 Telephone Alissa Leon [facility] ..114 350.1.13.10 4.2.7.2.686 [id number] [facility] 2023-03-12 00:00:00 2023-03-12 00:00:00 Telephone Tawana Jean [facility] 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 [facility] MATERNAL & CHILD [facility] 1..114 350.1.13.10 4.2.7.2.686 [id number] [facility] 2023-02-05 09:00:00 2023-02-05 09:00:00 Outpatient R TAWANA JEAN [facility] [id number] [facility] 2023-02-04 11:00:00 2023-02-04 11:00:00 Outpatient R ELSIEÁNGELPARKERKEVIN LILLYKAYLAKEVIN [facility] [id number] [facility] 2023-02-01 10:15:00 2023-02-01 14:26:48 [facility] [id number] [facility] 2023-02-01 10:15:00 2023-02-01 14:26:48 Telemedici ne Visit Trimester, [facility] Res-1st Bandar Baca [facility] 1..840.114 350.1.13.10 4.2.7.2.686 [id number] [facility] 2023-01-26 16:00:00 2023-01-26 16:00:00 Outpatient R ELSIEÁNGELPARKERKEVIN LILLY ELSIEÁNGELPARKERKEVIN LILLY [facility] [id number] [facility] 2023-01-26 00:00:00 2023-01-26 00:00:00 Patient Secure Msg Tawana Jean [facility] 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 [facility] 1..840.114 350.1.13.10 4.2.7.2.686 [id number] [facility] 2023-01-25 20:52:00 2023-01-25 23:28:00 Emergency X GAURAV JOHN [facility] ERT [id number] [facility] 2023-01-25 20:52:00 2023-01-25 23:28:00 Emergency Gaurav John [facility] ..840.114 350.1.13.10 4.2.7.2.686 [id number] [facility] 2023-01-18 14:39:00 2023-01-18 16:33:00 Emergency X CARMELITA BENAVIDEZRA [facility] ERT [id number] [facility] 2023-01-18 14:39:00 2023-01-18 16:33:00 Emergency Deb Benavidez [facility] 1.0.114 350.1.13.10 4.2.7.2.686 [id number] [id number] [facility] 2023-01-18 09:30:00 2023-01-18 11:22:09 Outpatient R BANDAR BACA [facility] [id number] [facility] 2023-01-18 09:30:00 2023-01-18 11:22:09 Routine Visit Trimester, [facility] Res-1st Bandar Baca [facility] 1.84.114 350.1.13.10 4.2.7.2.686 [id number] [facility] 2023-01-14 00:00:00 2023-01-14 00:00:00 Patient Secure Msg Mariajose Ramsey [facility] PROFESSIO [facility] 1.84.114 350.1.13.10 4.2.7.2.686 [id number] [facility] 2023-01-08 10:30:00 2023-01-09 17:30:00 Outpatient X MARIAJOSE RAMSEY [facility] SAIMA [id number] [facility] 2023-01-08 10:30:00 2023-01-09 17:30:00 Emergency Clary Richmond Vivian L [facility] 1.84.114 350.1.13.10 4.2.7.2.686 [id number] [facility] 2023-01-08 20:03:18 2023-01-08 20:03:18 Anesthesia Event Ese Puga Fernando [facility] 1.2.840.114 350.1.13.10 4.2.7.2.686 [id number] [id number] [facility] 2023-01-08 17:45:00 2023-01-08 19:13:00 Surgery Mariajose Ramsey [facility] 1.2.840.114 350.1.13.10 4.2.7.2.686 [id number] [facility] 2023-01-08 10:30:00 2023-01-08 10:30:00 Outpatient PETE CONNOR [facility] [id number] [facility] 2023-01-04 12:21:39 2023-01-04 23:59:00 Hospital Encounter [facility] 1.0.114 350.1.13.10 4.2.7.2.686 [id number] [facility] 2023-01-04 08:30:00 2023-01-04 11:08:47 Outpatient P GUILLERMINA BANDAR [facility] [id number] [facility] 2023-01-04 08:30:00 2023-01-04 11:08:47 Routine Visit Trimester, [facility] Res-1st [facility] 1.0.114 350.1.13.10 4.2.7.2.686 [id number] [facility] 2023-01-04 10:45:00 2023-01-04 11:00:00 Addiction Psychiatrist Visit [facility] 1.20.114 350.1.13.10 4.2.7.2.686 [id number] [facility] 2023-01-01 22:42:00 2023-01-02 01:04:00 Emergency X GAURAV JOHN [facility] ERT [id number] [facility] 2023-01-01 22:42:00 2023-01-02 01:04:00 Emergency Gaurav John J [facility] 1.2.840.114 350.1.13.10 4.2.7.2.686 [id number] [facility] 2023-01-01 16:00:00 2023-01-01 16:47:46 Outpatient R WILBUR WILSONIN [facility] [id number] [facility] 2023-01-01 16:00:00 2023-01-01 16:47:46 [facility] 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 [facility]NAL [facility] CHILD [facility] 1.2.840.114 350.1.13.10 4.2.7.2.686 [id number] [facility] 2023-01-01 15:30:00 2023-01-01 16:00:00 [facility] 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 [facility]NAL & CHILD [facility] 1.2.840.114 350.1.13.10 4.2.7.2.686 [id number] [facility] 2023-01-01 00:00:00 2023-01-01 00:00:00 Patient Secure Msg Doctor Unassigned, [place] [facility] 1.2.840.114 350.1.13.10 4.2.7.2.686 [id number] [facility] 2022-12-21 10:30:00 2022-12-21 11:40:15 Outpatient TAWANA LLANOS [facility] [id number] [facility] 2022-12-21 10:30:00 2022-12-21 11:40:15 Routine Visit Tawana Jean [facility] 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 [facility] 1.2840.114 350.1.13.10 4.2.7.2.686 [id number] [facility] 2022-12-21 10:30:00 2022-12-21 10:30:00 Outpatient R TAWANA JEAN [facility] [id number] [facility] 2022-12-21 00:00:00 2022-12-21 00:00:00 Orders Only Doctor Unassigned, [place] [facility] 1.840.114 350.1.13.10 4.2.7.2.686 [id number] [facility] 2022-12-18 09:30:00 2022-12-18 09:30:00 Outpatient R PETE OWENS [facility] [id number] [facility] 2022-12-17 00:00:00 2022-12-17 00:00:00 Patient Secure Msg Pete Owens [facility] 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 [facility] 1.840.114 350.1.13.10 4.2.7.2.686 [id number] [facility] 2022-12-14 00:00:00 2022-12-14 00:00:00 Telephone Pete Owens [facility] 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 [facility] 1.2840.114 350.1.13.10 4.2.7.2.686 [id number] [facility] 2022-12-12 00:00:00 2022-12-12 00:00:00 Case Management Tawana Jean [facility] 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 [facility] 1.2.840.114 350.1.13.10 4.2.7.2.686 [id number] [facility] 2022-12-12 00:00:00 2022-12-12 00:00:00 Patient Secure Msg VitaliyreggiePete castillo [facility] 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 [facility] 1.0.114 350.1.13.10 4.2.7.2.686 [id number] [facility] 2022-12-11 10:00:00 2022-12-11 12:03:06 Outpatient R PETE OWENS [facility] [id number] [facility] 2022-12-11 10:00:00 2022-12-11 12:03:06 Initial Visit Ptee Owens [facility] 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 [facility] 1.0.114 350.1.13.10 4.2.7.2.686 [id number] [facility] 2022-12-09 10:45:00 2022-12-09 12:04:26 Outpatient R TAWANA JEAN [facility] [id number] [facility] 2022-12-09 10:45:00 2022-12-09 12:04:26 Office Visit Tawana Jean [facility] 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 [facility] 1.0.114 350.1.13.10 4.2.7.2.686 [id number] [facility] 2022-12-09 00:00:00 2022-12-09 00:00:00 Orders Only Doctor Unassigned, [place] [facility] 1.0.114 350.1.13.10 4.2.7.2.686 [id number] [facility] 2022-12-07 00:00:00 2022-12-07 00:00:00 Patient Secure Msg Tawana Jean [facility] 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 [facility] 1.0.114 350.1.13.10 4.2.7.2.686 [id number] [facility] 2022-12-03 00:00:00 2022-12-03 00:00:00 Telephone Pcp, Patient Does Not Have A [facility] 1.840.114 350.1.13.10 4.2.7.2.686 [id number] [facility] 2022-11-27 08:45:00 2022-11-27 08:45:00 Outpatient R PETE OWENS [facility] [id number] [facility] 2022-11-26 13:45:00 2022-11-26 13:45:00 Outpatient R TAWANA JEAN [facility] [id number] [facility] 2022-11-26 10:45:00 2022-11-26 10:45:00 Outpatient R TAWANA JEAN [facility] [id number] [facility] 2022-11-12 15:00:00 2022-11-12 15:39:24 Outpatient R TAWANA JEAN [facility] [id number] [facility] 2022-11-12 15:00:00 2022-11-12 15:39:24 Office Visit Tawana Jean [facility] 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 [facility] 1.840.114 350.1.13.10 4.2.7.2.686 [id number] [facility] 2022-11-11 13:00:00 2022-11-11 13:00:00 Outpatient R [facility] [id number] [facility] 2022-11-11 00:00:00 2022-11-11 00:00:00 Telephone Karon Zazueta [facility] 1.840.114 350.1.13.10 4.2.7.2.686 [id number] [facility] 2022-10-28 00:00:00 2022-10-28 00:00:00 Telephone Karon Zazueta [facility] 1.114 350.1.13.10 4.2.7.2.686 [id number] [facility] 2022-10-22 15:00:00 2022-10-22 15:40:25 Outpatient TAWANA LLANOS [facility] [id number] [facility] 2022-10-22 15:00:00 2022-10-22 15:40:25 Routine Visit Tawana Jean [facility] 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 [facility] 1..114 350.1.13.10 4.2.7.2.686 [id number] [facility] 2022-10-22 00:00:00 2022-10-22 00:00:00 Orders Only Doctor Unassigned, [place] [facility] 1..114 350.1.13.10 4.2.7.2.686 [id number] [facility] 2022-10-20 10:45:00 2022-10-20 10:45:00 Outpatient TAWANA LLANOS [facility] [id number] [facility] 2022-10-13 08:45:00 2022-10-13 08:45:00 Outpatient TAWANA LLANOS [facility] [id number] [facility] 2022-09-29 09:15:00 2022-09-29 09:15:00 Outpatient SANDHYA ASKEW KARREN [facility] [id number] [facility] 2022-09-29 00:00:00 2022-09-29 00:00:00 Patient Secure Gillian [facility] 1..114 350.1.13.10 4.2.7.2.686 [id number] [facility] 2022-09-26 17:36:00 2022-09-28 13:20:00 Outpatient X PAIGE MELISSA [facility] OBF [id number] [facility] 2022-09-26 17:36:00 2022-09-28 13:20:00 Emergency Dreleobardo, Winifred Anne Paige Melissa Vien Cam [facility] 1.2.840.114 350.1.13.10 4.2.7.2.686 [id number] [facility] 2022-09-28 13:15:00 2022-09-28 13:15:00 Outpatient R TAWANA JEAN [facility] [id number] [facility] 2022-09-28 00:00:00 2022-09-28 00:00:00 Patient Secure Msg Tawana Jean [facility] 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 [facility] 1.2.840.114 350.1.13.10 4.2.7.2.686 [id number] [facility] 2022-09-27 19:45:00 2022-09-27 21:10:00 Surgery Gillian Wagner [facility] [place] 1.2.840.114 350.1.13.10 4.2.7.2.686 [id number] [facility] 2022-09-23 22:37:00 2022-09-24 02:17:00 Emergency X ARIANA CASTRO [facility] ERT [id number] [facility] 2022-09-23 22:37:00 2022-09-24 02:17:00 Emergency Ariana Castro [facility] 1.2.840.114 350.1.13.10 4.2.7.2.686 [id number] [facility] 2022-09-24 00:00:00 2022-09-24 00:00:00 Case Management EleonoramarshallTawana [facility] 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 [facility] 1.2.840.114 350.1.13.10 4.2.7.2.686 [id number] [facility] 2022-09-24 00:00:00 2022-09-24 00:00:00 Patient Secure Msg EleonoramarshallTawana [facility] 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 [facility] 1.2.840.114 350.1.13.10 4.2.7.2.686 [id number] [facility] 2022-09-23 16:00:00 2022-09-23 16:48:21 Outpatient R TAWANA JEAN [facility] [id number] [facility] 2022-09-23 16:00:00 2022-09-23 16:48:21 Routine Visit Tawana Jean [facility] 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 [facility] 1.2.840.114 350.1.13.10 4.2.7.2.686 [id number] [facility] 2022-09-23 12:45:00 2022-09-23 12:45:00 Outpatient R TAWANA JEAN [facility] [id number] [facility] 2022-09-17 16:00:00 2022-09-17 16:00:00 Outpatient R [facility] [id number] [facility] 2022-09-10 15:45:00 2022-09-10 15:45:00 Outpatient R TAWANA JEAN [facility] [id number] [facility] 2022-09-08 13:45:00 2022-09-08 13:45:00 Outpatient R TAWANA JEAN [facility] [id number] [facility] 2022-08-28 00:00:00 2022-08-28 00:00:00 Patient Secure Tawana Jean [facility] 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 [facility] 1.2.840.114 350.1.13.10 4.2.7.2.686 [id number] [facility] 2022-08-27 00:00:00 2022-08-27 00:00:00 Patient Secure Msg Tawana Jean [facility] 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 [facility] 1.2.840.114 350.1.13.10 4.2.7.2.686 [id number] [facility] 2022-08-13 00:00:00 2022-08-13 00:00:00 Case Management Tawana Jean [facility] 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 [facility] 1.2.840.114 350.1.13.10 4.2.7.2.686 [id number] 107 [id number] [facility] 2022-08-13 00:00:00 2022-08-13 00:00:00 [facility] 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 [facility] 1.2.840.114 350.1.13.10 4.2.7.2.686 [id number] 107 [id number] [facility] 2022-08-12 07:45:00 2022-08-12 08:09:39 Addiction Psychiatrist Visit Lab, Ang-Rmchp RoxannNancy rosarionda [facility] 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 [facility] 1.2.840.114 350.1.13.10 4.2.7.2.686 [id number] 107 [id number] [facility] 2022-08-12 07:45:00 2022-08-12 07:45:00 Outpatient TAWANA LLANOS [facility] [id number] [facility] 2022-08-11 14:30:00 2022-08-11 16:26:19 Outpatient TAWANA LLANOS [facility] [id number] [facility] 2022-08-11 14:30:00 2022-08-11 16:26:19 Initial Visit Provider, Tawana Metcalf [facility] 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 [facility] 1..114 350.1.13.10 4.2.7.2.686 [id number] [facility] 2022-08-11 00:00:00 2022-08-11 00:00:00 Orders Only Doctor Unassigned, [place] [facility] 1..114 350.1.13.10 4.2.7.2.686 [id number] [facility] 2022-07-14 08:15:00 2022-07-14 08:15:00 Outpatient R TAWANA JEAN [facility] [id number] [facility] 2022-05-23 10:30:00 2022-05-23 10:30:00 Outpatient R [facility] [id number] [facility] 2022-05-23 10:30:00 2022-05-23 10:30:00 Outpatient R CM CERVANTES [facility] [id number] [facility] 2022-05-01 08:00:00 2022-05-01 08:00:00 Outpatient R TAWANA JEAN [facility] [id number] [facility] 2022-04-30 07:45:00 2022-04-30 07:45:00 Outpatient R WILBERT WILLOUGHBY [facility] [id number] [facility] 2022-04-27 02:06:00 2022-04-27 02:53:00 Emergency X WINIFRED JAMES [facility] ERT [id number] [facility] 2022-04-27 02:06:00 2022-04-27 02:53:00 Emergency Winifred James [facility] 1..114 350.1.13.10 4.2.7.2.686 [id number] [facility] 2022-04-27 00:00:00 2022-04-27 00:00:00 Orders Only Doctor Unassigned, [place] [facility] 1.2840.114 350.1.13.10 4.2.7.2.686 [id number] [facility] 2022-04-18 10:45:00 2022-04-18 11:50:36 Outpatient R EVARISTO [facility] [id number] [facility] 2022-04-18 10:45:00 2022-04-18 11:50:36 Office Visit Provider, Sangeetha HickmanBanner 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 [facility] 1..840.114 350.1.13.10 4.2.7.2.686 [id number] [facility] 2022-04-17 00:00:00 2022-04-17 00:00:00 Telephone Pete Owens [facility] 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 [facility] 1.84.114 350.1.13.10 4.2.7.2.686 [id number] 107 [id number] [facility] 2022-04-16 12:45:00 2022-04-16 12:45:00 Outpatient R TAWANA JEAN [facility] [id number] [facility] 2022-04-03 00:00:00 2022-04-03 00:00:00 Orders Only Doctor Unassigned, [place] [facility] 1.84.114 350.1.13.10 4.2.7.2.686 [id number] [facility] 2022-04-02 12:45:00 2022-04-02 14:18:13 Outpatient R LOUISE PRADO [facility] [id number] [facility] 2022-04-02 12:45:00 2022-04-02 14:18:13 Office Visit Provider, Daivd-Rmchp Wilbert Marin Kathryn C [facility] 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 [facility] 1..840.114 350.1.13.10 4.2.7.2.686 [id number] [facility] 2022-04-01 09:00:00 2022-04-01 09:00:00 Outpatient WILBERT MUNGUIA [facility] [id number] [facility] 2022-01-21 13:15:00 2022-01-21 13:15:00 Outpatient PETE CONNOR [facility] [id number] [facility] 2022-01-16 00:00:00 2022-01-16 00:00:00 Jamie Carroll [facility] 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 [facility] 1.840.114 350.1.13.10 4.2.7.2.686 [id number] 107 [id number] [facility] 2022-01-15 00:00:00 2022-01-15 00:00:00 Patient Secure Msg Doctor Unassigned, [place] [facility] 1.840.114 350.1.13.10 4.2.7.2.686 [id number] [facility] 2022-01-14 00:00:00 2022-01-14 00:00:00 Outpatient ARMINDA_DAVIS GONZALEZ [facility] [id number] 2022-01-01 00:00:00 2022-01-01 00:00:00 Patient Secure Wilbert Eller [facility] 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 [facility] 1..840.114 350.1.13.10 4.2.7.2.686 [id number] 107 [id number] [facility] 2021-12-31 00:00:00 2021-12-31 00:00:00 Telephone Jamie Wall [facility] 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 [facility] 1.2.840.114 350.1.13.10 4.2.7.2.686 [id number] [facility] 2021-12-31 00:00:00 2021-12-31 00:00:00 Telephone Wilbert Willoughby [facility] 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 [facility] 1.2.840.114 350.1.13.10 4.2.7.2.686 [id number] 107 [id number] [facility] 2021-12-30 14:30:00 2021-12-30 16:19:20 [facility] 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 [facility] 1.2.840.114 350.1.13.10 4.2.7.2.686 [id number] [facility] 2021-12-30 14:30:00 2021-12-30 16:19:20 Outpatient JAMIE GAYTAN EMILY [facility] [id number] [facility] 2021-12-30 14:30:00 2021-12-30 14:30:00 Outpatient JAMIE GAYTAN EMILY [facility] [id number] [facility] 2021-12-18 09:45:00 2021-12-18 09:45:00 Outpatient WILBERT MUNGUIA [facility] [id number] [facility] 2021-12-03 13:00:00 2021-12-03 13:00:00 Outpatient WILBERT MUNGUIA [facility] [id number] [facility] 2021-12-02 00:00:00 2021-12-02 00:00:00 Patient Secure MsWilbert Eller [facility] 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 [facility] 1.0.114 350.1.13.10 4.2.7.2.686 [id number] 107 [id number] [facility] 2021-12-02 00:00:00 2021-12-02 00:00:00 Telephone Samy Willoughbymarlene Jaffe [facility] 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 [facility] 1.840.114 350.1.13.10 4.2.7.2.686 [id number] [facility] 2021-12-01 13:30:00 2021-12-01 13:30:00 Outpatient R WILLOUGHBYWILBERT [facility] [id number] [facility] 2021-12-01 13:30:00 2021-12-01 13:30:00 Outpatient R WILLOUGHBYWILBERT [facility] [id number] [facility] 2021-11-13 00:00:00 2021-11-13 00:00:00 Telephone Dana Willoughbyjaylin [facility] 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 [facility] 1..114 350.1.13.10 4.2.7.2.686 [id number] [facility] 2021-11-11 14:45:00 2021-11-11 16:08:19 Outpatient R WILLOUGHBYWILBERT [facility] [id number] [facility] 2021-11-11 14:45:00 2021-11-11 16:08:19 Office Visit Myranda Willoughbylois [facility] 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 [facility] 1..114 350.1.13.10 4.2.7.2.686 [id number] 107 [id number] [facility] 2021-11-11 00:00:00 2021-11-11 00:00:00 Orders Only Doctor Unassigned, [place] [facility] 1.0.114 350.1.13.10 4.2.7.2.686 [id number] [facility] 2021-04-07 00:00:00 2021-04-07 00:00:00 Patient Secure Wilbert Blanco [facility] 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 [facility] 1.2840.114 350.1.13.10 4.2.7.2.686 [id number] 107 [id number] [facility] 2021-03-21 14:45:00 2021-03-21 14:45:00 Outpatient R PETE OWENS [facility] [id number] [facility] 2021-03-20 00:00:00 2021-03-20 00:00:00 Telephone Pete Owens [facility] 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 [facility] 1.2840.114 350.1.13.10 4.2.7.2.686 [id number] [facility] 2021-03-19 14:45:00 2021-03-19 14:45:00 Outpatient JAMIE HOPPER [facility] [id number] [facility] 2021-03-18 15:15:00 2021-03-18 15:15:00 Outpatient JAMIE HOPPER [facility] [id number] [facility] 2021-03-16 22:39:00 2021-03-17 01:20:00 Emergency Sam Chase [facility] 1.20.114 350.1.13.10 4.2.7.2.686 [id number] [facility] 2021-02-20 00:00:00 2021-02-20 00:00:00 Telephone Lara Atkinson [facility] 1.20.114 350.1.13.10 4.2.7.2.686 [id number] [facility] 2021-02-19 02:37:00 2021-02-19 03:44:00 Emergency Paige Melissa [facility] 1.2.840.114 350.1.13.10 4.2.7.2.686 [id number] [facility] 2020-09-10 00:00:00 2020-09-10 00:00:00 Patient Outreach Rolando Juan Roblesan [facility] 1.2.840.114 350.1.13.10 4.2.7.2.686 [id number] [facility] 2020-09-10 00:00:00 2020-09-10 00:00:00 Patient Outreach RolandoJuan [facility] 1.2840.114 350.1.13.10 4.2.7.2.686 [id number] 2020-08-27 10:30:00 2020-08-27 10:30:00 Outpatient R WILBERT WILLOUGHBY [facility] [id number] [facility] 2020-08-26 13:30:00 2020-08-26 13:30:00 Outpatient R [facility] [id number] [facility] 2020-07-11 13:15:00 2020-07-11 13:15:00 Outpatient R WILBERT WILLOUGHBY [facility] [id number] [facility] 2020-06-27 15:21:42 2020-06-27 16:19:38 Office Visit Wilbert Willoughby [facility] 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 [facility] 1.2840.114 350.1.13.10 4.2.7.2.686 [id number] [facility] 2020-06-27 15:21:42 2020-06-27 16:19:38 Office Visit Wilbert Willoughby [facility] 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 [facility] 1.2.840.114 350.1.13.10 4.2.7.2.686 [id number] 2020-06-27 15:30:00 2020-06-27 15:30:00 Outpatient MYRANDA MUNGUIAJAYLIN [facility] [id number] [facility] 2020-06-05 15:15:00 2020-06-05 15:15:00 Outpatient WILBERT MUNGUIA [facility] [id number] [facility] 2020-03-29 00:00:00 2020-03-29 00:00:00 Patient Secure Msg Doctor Unassigned, [place] [facility] 1.2.840.114 350.1.13.10 4.2.7.2.686 [id number] [facility] 2020-03-27 19:22:00 2020-03-28 00:39:00 Emergency Sam Chase [facility] 1.2.840.114 350.1.13.10 4.2.7.2.686 [id number] [facility] 2019-12-05 01:22:11 2019-12-05 03:48:00 Emergency Shruthi Ingalls [facility] 1.2.840.114 350.1.13.10 4.2.7.2.686 [id number] [facility] 2019-12-05 01:22:11 2019-12-05 03:48:00 Emergency Genet RADHA HAWKINS [facility] ERT [id number] [facility] 2019-11-15 19:21:57 2019-11-16 00:00:00 Emergency Sam Chase [facility] 1.2.840.114 350.1.13.10 4.2.7.2.686 [id number] [facility] 2019-11-15 19:21:57 2019-11-16 00:00:00 Emergency Sam ROSS [facility] ERT [id number] [facility] 2019-10-19 04:35:17 2019-10-19 06:17:00 Emergency Luisa Ma [facility] 1.2.840.114 350.1.13.10 4.2.7.2.686 [id number] [facility] 2019-10-19 04:35:17 2019-10-19 06:17:00 Emergency X LUISA MA [facility] ERT [id number] [facility] 2019-08-31 03:53:07 2019-08-31 05:03:00 Emergency Jessica Bob [facility] 1.2.840.114 350.1.13.10 4.2.7.2.686 [id number] [facility] 2019-08-31 03:53:07 2019-08-31 05:03:00 Emergency X JESSICA BOB [facility] ERT [id number] [facility] 2019-06-09 16:17:18 2019-06-09 19:21:00 Emergency X MANAN PÉREZ III [facility] ERT [id number] [facility] 2019-01-29 15:09:14 2019-01-29 18:22:00 Emergency Manan Pérez [facility] 1.2.840.114 350.1.13.10 4.2.7.2.686 [id number] [facility] 2019-01-29 00:00:00 2019-01-29 00:00:00 Orders Only Doctor Unassigned, [place] [facility] 1.2.840.114 350.1.13.10 4.2.7.2.686 [id number] [facility] Results Test Description Test Time Test Comments Results Resul t Comments Source XR KUB 2024-05-10 00:52:53 EXAM: XR KUB HISTORY: 28 years-old Female; abd pain post colonoscopy Upright. TECHNIQUE: Frontal views of the abdomen and pelvis COMPARISON: CT abdomen pelvis 01/25/2023, [id number]:32:00* Test Item Value Reference Range Interpretation Comme nts POCT PREG (test code = 1605) Negative On board controls acceptable with C Line (test code = 3574) Yes POCT PREG LOT # (test code = 3575) POCT PREG TEST DATE ( test code = 3576) Lab Interpretation (test cod e = 16498-4) Normal [facility] MOLECULAR [id number] 21:52:51* Test Item Value Reference Range Interpretation Comme nts POCT Molecular Strep (test c ode = 00136-2) Negative Negative Lab Interpretation (test cod e = 40808-3) Normal [facility] SARS-COV-2 ANTIGEN (BINAX NOW)2024-02-17 21:42:00* Test Item Value Reference Range Interpretation Comme nts POCT SARS-COV-2 ANTIGEN (test code = 36856-2) Not Detected Not Detected, See Comment On board controls acceptable with C Line (test code = 3574) Yes Lab Interpretation (test code = 34953-3) Normal [facility] [id number] 14:17:00* Test Item Value Reference Range Interpretation Comme nts POCT PREG (test code = 1605) Negative On board controls acceptable with C Line (test code = 3574) Yes POCT PREG LOT # (test code = 3575) POCT PREG TEST DATE ( test code = 3576) [facility]/[id number] 18:24:24 Ordered by an unspecified provider.[facility]/[id number] 18:24:24Ordered by an unspecified provider.[facility]/[id number] 18:24:24Ordered by an unspecified provider.[facility] Test 2023-08-20 19:56:00* Test Item Value Reference Range Interpretation Comme nts POCT PREG (test code = 1605) Negative On board controls acceptable with C Line (test code = 3574) Yes POCT PREG LOT # (test code = 3575) POCT PREG TEST DATE ( test code = 3576) [facility] [id number] 19:56:00* Test Item Value Reference Range Interpretation Comme nts POCT PREG (test code = 1605) Negative On board controls acceptable with C Line (test code = 3574) Yes POCT PREG LOT # (test code = 3575) POCT PREG TEST DATE ( test code = 3576) [facility] [id number] 22:07:50* Test Item Value Reference Range Interpretation Comme nts BETA HCG (test code = 0492815779) 7.37 See_Comment [[employer]] The system which generated this result transmitted reference range: Non- female and male patients: <5 mIU/mL. The reference range was not used to interpret this result as normal/abnormal. MARCELINO (test code = MARCELINO) Gestational Age ?Range (mIU/mL) 1-10 ?Weeks ?[id number] Weeks ?[id number] Weeks ?[id number] Weeks ?[id number] Biotin has been reported to cause a negative bias, interpret results relative to patient's use of biotin. [facility]. METABOLIC PANEL (83390)2023-08-13 21:50:11* Test Item Value Reference Range Interpretation Comme nts NA (test code = 1880975013) 139 mmol/L 135-145 K (test code = 7740297712) 4.0 mmol/L 3.5-5.0 CL (test code = 0358797344) 108 mmol/L 98-108 CO2 TOTAL (test code = 8428886523) 25 mmol/L 23-31 AGAP (test code = 5588553611) 6 2-16 BUN (test code = 8716298856) 11 mg/dL 7-23 GLUCOSE (test code = 6418934855) 93 mg/dL 70-110 CREATININE (test code = 2160-0) 0.61 mg/dL 0.50-1.04 TOTAL BILI (test code = 7345889234) 0.5 mg/dL 0.1-1.1 CALCIUM (test code = 1748817788) 8.7 mg/dL 8.6-10.6 T PROTEIN (test code = 4489102552) 8.1 g/dL 6.3-8.2 ALBUMIN (test code = 0732619206) 4.1 g/dL 3.5-5.0 ALK PHOS (test code = 8192411801) 71 U/L 34-122 ALTv (test code = 1742-6) 18 U/L 5-35 AST(SGOT) (test code = 9385703738) 28 U/L 13-40 eGFR (test code = 61797-8) 124.3 mL/min/1.73m2 CKD-EPI eGFR (20 21). Assuming creatinine has been stable day-to-day for at least three months, the eGFR indicates Category G1 (>= 90 mL/min/1.73 m2) [facility] [facility] [id number] 21:38:26* Test Item Value Reference Range Interpretation [...] g/dL 31.6-35.1 L RDW-SD (test code = 91623-4) 49.0 fL 39.0-49.9 RDW-CV (test code = 788-0) 16.7 % 12.0-15.5 H PLT (test code = 777-3) 416 166-358 H MPV (test code = 21647-3) 10.0 fL 9.5-12.9 NRBC/100 WBC (test code = 9237776574) 0.0 0.0-10.0 NRBC x10^3 (test code = 9084170264) See_Comment [Automated messa ge] The system which generated this result transmitted reference range: 10*3/?L. The reference range was not used to interpret this result as normal/abnormal. GRAN MAT (NEUT) % (test code = 770-8) 62.4 % IMM GRAN % (test code = 8761230342) 0.20 % LYMPH % (test code = 736-9) 27.3 % MONO % (test code = 5905-5) 8.1 % EOS % (test code = 713-8) 1.1 % BASO % (test code = 706-2) 0.9 % GRAN MAT x10^3(ANC) (test code = 7131226976) 3.54 10*3/uL 1.88-7.09 IMM GRAN x10^3 (test code = 0658702326) 0.00-0.06 LYMPH x10^3 (test code = 731-0) 1.55 10*3/uL 1.32-3.29 MONO x10^3 (test code = 742-7) 0.46 10*3/uL 0.33-0.92 EOS x10^3 (test code = 711-2) 0.06 10*3/uL 0.03-0.39 BASO x10^3 (test code = 704-7) 0.05 10*3/uL 0.01-0.07 Lab Interpretation (test code = 42572-2) Abnormal [facility] CenterType and Screen - ONCE [id number] 21:33:00 * Test Item Value Reference Range Interpretation Comme nts ABO & RH (test code = 20) A Positive IAT (test code = 1185) Negative [facility] CenterPOCT URINALYSIS W SPECIFIC [id number] 21:39:00* Test Item Value Reference Range Interpretation [...] U APPEAR (test code = 3267) .. [facility] CenterPO[facility] URINALYS[facility] W SPECIFIC [id number] 21:39:00* Test Item Value Reference Range Interpretation [...] U APPEAR (test code = 3267) .. [facility] CenterSURGICAL PATHOLOGY [id number] 20:00:41* Test Item Value Reference Range Interpretation Comme nts Case Report (test code = 1479440853) Surgical Pathology ?Case: [id number] ? Authorizing Provider: ?Bandar Baca MD ? Collected: ? 04/26/2023815 ?Ordering Location: ? ? [facility] OR ? Received: ?04/26/2023 1015 ? Department ? Pathologist: ? Nadiya, Olga, MD ?Specimen: ? ?ENDOMETRIUM, ENDOMETRIAL CURETTINGS ? Final Diagnosis (test code = 8946414942) u7mrmGDySENje1vtTMOodR FuZzEwMzNcZnRuYmpcdWMx NJklqlRoVLbewMvgRYI0DN PpGU0gxRwhmCj1rAhzPJDf vaY6dFNuDSsgv1wpKVI3b3 imrqjoFQNcGCvrOf5pfFTw qFupLoNyXPBfHUv9hR20EI ZxdT8fhGEyHAk3SWBgtWBs biEkLoBqUGTuaLGbbCE4KS TlBE0quvjcWPijAPtvDESr zmZ5FKZtnEBvG4LeYXAnTR 0ioaoxKBV6WZwtEECwBPB0 IoByTSGxs5Ynayw2YsDnwQ FyZFxwbGFpblxmczIwXHBh ciBBLiBFTkRPTUVUUklVTS usZ7VMFWVZFWwEWosuGULk SFXuPRVoAQNHC9wHAjVOJG KGZyEcDC1QR49XSQJKEA4p cGFyXHBhciBIYXNhbmFpbi NPVnX7bUtoTzBeaaBKYRKw biwgTUQgIFxwYXJcZnMyMi MCrCbaZI6hSLNisbQssdlp TUQgIDExLzcvMjAyMyAgMj owMCBQTVxwYXJccGFyZFxm hiDdNWHxefaqUQK6a3wpqS YxXHNzdGVjZjIyMDAwXGFu x7xpQAPaoHDsHuJtKpGzXy CtGcxfcFTmGSBkGpCyy3ir f978rZDge0nfKTBeOuV1tF NgTAWcpNgxdfg0iOtnWeLj ZVLco4oyauWxWnNrYFKoCP LzCKCgiLVkV285TGUzSDea x6crq3NcEQKfgMObz2L9DK ESSLemUoGoE765i0gcw6fm fzVghBI4ORJgTEE2UUrgzt ZsysU6MUjhfUDpXyK8SDhs rcSlAFntzsRwnnWmSdr5FL QgM870REM3rSvfg4zjBXQ9 YMIyRIIbUtnmTw4fhLXsY0 26CNGqFMEEWRZphAs1DXYd etEnpkOagKYVv682H560w4 apMILhjlPnwNoFickyk2ks P912RVRfcFHklqKwZaQwQT LscXNviUS3NPMiSU8rpofd MFhdXZeoCITpokZ2VQAlkN ExG0ClDTKyXE5hutecQYC6 DVksXFOdDYK9AhNyUKNeu1 Atohs7ExDxtf8ylu40QKX9 l7AjgYrgSEK9EZS1GyWvBi 1jlGXbVFQmJP0kEvNtjUNc FOSoyy44eLewRQzthmCbiR 6dGuMwVIRbdKRaDWMmFK6r cZSjQFEtyD4uyntyLLSlOl UplklqLAZzaZytcbToFk5q sJoiZUA6JFqqF3ntcJ1mWg Y5ZYynS8ltdJ8bODz0LFtl cDF3IOWljX3qZA2hvwaro7 kuECkiFTnxBYUwbrN8egT2 GNWlrLLqL5GgtY5yLEGgSW 7mvazma8ppIYN3DBddDOLk HXP8WnUfJLNox0Kwyah5Hk Yuq3RsxVRdCMwfJ25zj223 EKNscnDiJ1fsgPPhgyhljM PnbixoQPlzjsT2MKEnPIJx YWluXGYxXGZzMjBcbGFuZz EwMzNcaGljaFxmMVxkYmNo EMKoBJbeB7ujLhRoR6NvJT QtUbCicUBlKRdfyAT0ZJSw ORBlr29fmTl2JCNurnxrd7 DcKFVbeUUyzHDlpZ3svgEt k0elZRDlVUVfYYIhL5WyVE A3oBWdYOBueZHnqKI4VA9j plZlJO6yAUAxYagwnpSiuG IqwyUnDJTrGGpna5eaLE8e JZSdoBdomB6olGO5NNTgf6 oteBOcmDCav4nbv3HsdtOb ZShzKSBtYXkgYXBwZWFyIG 6tVRIguGSeyxKzg1F7Lpoa rKOlnntnKttjcaA9ZAhtyr yvNXEkWCpgG7taWfLwKCQq iJztLkhfu6IcTUQoORTmWv hccGFyfX0= Clinical Information (test code = 3296725045) Abnormal uterine bleeding [N93.9] Gross Description (test code = 0683782375) c1rxaMWjGHZikVITUFU9ZM KvEI7yvAqdkVu2uCaqLIEi bgG6cRFlKBpxk6flJWV5s4 oqkgEFQikvFRKiTA0vYXsk OYGjBL0gDcVzRWTtKaWrJP BhcGVydzEyMjQwXHBhcGVy vBC5WTFgFU7ofonpARzoJQ bxVQIhggI8ZNIkiADxN6Wk OPChMY5wosdeGUN4OTBNRr dlXt5lyVPiyCsyDoOhNqNu YXJzZXQwXGZuaWwgQXJpYW i5eG7YWguvLFN0LKNJLifs EycmpVowo3YngOStDLZhIG xcaWQgNTEwMDAgXFxkYiBP EoSfDaR7SZsaTgE3PaP0CO n3KVOPCVXlFwl8XJK0WkM8 TCt3GZXlTW8wCBxfjVQuSA iyXrqnZSsiS739ZEsyUHDj F5UoK0IlFNkpRqQvSHjbWB MaDQPfLKrtBUUvA9FWRCXv XPz3AlBlUUEjNRe5EJroE6 MHHQTxLYS0KLO0YIX1JyO9 UUl5FCXSMm6dIVf3PQR4TS O5MRA7VTx0RcHaZPLgYvAy EYIrKYKwPRvzlYRiRL0hrL jpUJRiUV5FHASpMDqnETYq NrMpM7HSW3jTNU0dEIropS JjaFxmczIyXHBhciANClxw MHFvNU0CSPQoTIioAWd7zw MeLKOyUqFcVBKcZ73dq0GQ v9SgJP0UNAb3tgGiolNJTh NwZWNpbWVuIEEgaXMgcmVj LDz6OLAoZhJhx4ejuGSwLK blSXH9zQJzNTMyPVTfDZRi AJ63P3PueaPnYZzsVQgarj FrNpOuQNEietNisYL1jnwr bCBjdXJldHRpbmdzIiBhbm UmV52pu8nnaPVow5YwMOG0 zFd6WEQvVYSzGGKiX4xok3 s5oUZgR7wmFItzpIOfs6Qr eZWrBQRgdignbKZpLDg1pR KoLDZdJqBfrVdwz7ZnPTLh HJzpUE79jdWgFN40QMkdEF 2uJYgyCS8cUWHnHBetWDOz K9VxN0R8ONjwQEZpFVKomI AqnT4drlPqrmEsdYf6UGGj HOD2oQAdqVglHRRkRkeyfK Z4EJFaVkAcvgYdv8PihMb7 uSIkCImrYAXuxG9swV5cAE EuXHBhciANClxwYXIgDQpc n6PnWRcrsQbtDHXlFzKcLZ vAFEW3MLIwcgFwjHedHKGI QSAoQVNDUCkNClxlcGljTm LgqYJzNwN8LNPjlCYyQUD9 PE7ujBigYHHcV3BqF4Slvh S9IDWaocOIBrciHAFfUX0B fQ== Disclaimer (test code = 1505648442) d8jfzJApBHPhp6qeWKDgsI FuZzEwMzNcZnRuYmpcdWMx VTdysoOoTWykw7ScQ1KvJx AwMFxhbnNpXGRlZmxhbmcx IEJkJAT6saByWFUbEZgrWQ QwKFcdYd1gfBVgzPdvLoEl IPSwq0eoxmSOASreCfQgM3 85MRNiYXmje8kwp4PhSZFt xVGyq1F6AAYUexeklYt9jD kgU50mx2E1StydY3uyMLMi EYZhN2CgIB1uAWRkYwh9YI K0UPT5SBZnKRQfA6YgOS2g RLDznZYoQJv0o4qqqNwbZR IaBWD3o5ynOXnijiVmRI0x me1fhPb0u2vfqvZoBNLfML VsePTGEVMnU7SjgXlsOk3t yKm7uGzqEcdyAEI1Gwo9AM 1opl79gpy8rSmuSZPnuggl JuC1MXvtWWMfejogYAo2KY gxEGMpaRC3MYLtqXTwG8Tz UFSkZO6zpen0DFI1PKcuIZ KzUuM8SHClyWBwEESorXwn BCidc482KZI5MiHkZX3xI6 Hfk3Q9gI0qrMOqLDHwzAEw AcVaPBNonl1sdOGwHFild5 PnLDK0krH0sBAnwWKtREPt WB88Wcpny6TtKxtyz7ReT5 3wyZR4ZJshz6iaOO3hUbS0 fvGhPAlkb3squT2gGvB5JG klSK8hVP5qADMrmW7pbtgo XHBnYnJkcmhlYWRccGdicm LpNd7hcCznQYG6WKscU4ps rI6uNuB9ERgdU3qgwJ8xEH l9KLhdqQT1DXHbvH0zYC0a iiiix4clYGdmJQceYXZoou Y4hdM5SWZawVCdZ9HquC0y ITXpRO3stddso0euCTM1MZ ezJIGiHTA8MaBiFKBbv0Fn gje9MqUtp9TnbSRcLRyaN6 5nn554CLMqwcMpT5qhcEKx thcbrWZwbmzqMQvlqjG2CF KrxnWli7PnVFLjJLL9UWmz JCybpCOaBOYfzDabe1xpO5 RscGFyXHBsYWluXGYxXGZz MjBcbGFuZzEwMzNcaGljaF llWWoeMlNqKFYvMFsfN8pw IkLcE1DfIOXoCcYfqREoY2 ggVGhpcyByZXBvcnQgbWF5 USnyA9z3YUVxnpLuwBq2fn CgOlNtZUSaPBC0HMhdqFHj TNKhw7DjnyeneYIoNw1zsX LjUZFewP0rAESsVPVyWHep BB6mpIg8RYJWvIAlvZOkOn NJUYBuTC00qzAmHETKcaxu r4Z0SZdoXVQkv7HfnZBrA1 olx4HaRSVwo48gDJ4df0B3 k5qqMCE1UO9ec7ZfPWUxbQ QglMUaJDXas6Ktoqtkp8Wi MPRosjBjs6QrDQFxquRyfA QoNPWtcoNytn7okpPlKREn VVAkT8VjqmngbQeymqVtKE Tixv5lxhJpJXE9MVKSWQHa YCAjc2HrsD8mqGBNZTT2vM Bcid9xykSNmXAwRLTtbm94 PQJpBH6rO3eeHPCvWXDyiy NemNMyh4MdOPOurKS1cBRc WH9MBjMOn65uQAJxBKOHnq XbBDJpvIhvcMD6tfJ6mL1p IChGREEpLlx+IFRoZSBGRE KmIS3jdgDqx7ZilpOxzGiq LJVojAUkg7GlcBRgy2FspR usk9CgbVLvgOAtJQ0zUPMd clxwYXIgVVRNQiBMYWJvcm N7f7FdWHWsOQCdYGS6pZrp mvh7PWLraN5pIPXrI2twfa sqAOodCFTir4UhjQ6pzLLA lMBpb2YysDMtcSVOnDNxED 5vaaGzTLpOOBmMULZ5ygHq MJUib8FiEUcwO9haG51sjY tdmMf2lVH1LQS0bG6uVgd+ IFxwYXJccGFyIEFwcHJvcH GmYUSnjTpkdoAwT2MkodHm eA8lvYTmpcGdOC1vZD5jR7 D2iMTvGNAmsjUog0guTMat dmUgYmVlbiByZXZpZXdlZC Gcg0KmXOmhAIY8MXoijpAt bmNsdWRpbmcgSCZFLCBTcG GxvAOvTOL5OBoqsxAxnxJq SA9ojD1rqAznlV3qyXEppJ M4ksmbGNKmMOYcwHceDXQr EP8abNtebB1jLuZyGlLeTN oiWH2rXLJwK8vjiMWoDMAq APZyN6ltWbYipT8pkDoaBV xjZjJcZnMyMFxwYXJccGFy XHBsYWluXGYxXGZzMjBcbG FuZzEwMzNcaGljaFxmMVxk KpKoEBQvFKijH5kvMoFtW3 FdUQMuBfYzvPFcO7vmRMio AID5QDPqAB5ovXLhCQ76cK Fkq6zpKOepnSplkz7oK63t jGDaWZwyqUqmVHUxc37fs2 QjMAFjeeUghp4iDHMnyrN8 rK5bSLDagXdqTRIrrGYuQO Ijf1WcZUetlPNnnzWxWTre CJUzTLMlnIJqyxD3hoLxyz QaexKfRJHtrGhwNXRrd1Qh OBKlYEegn7Udmz6yrAMjIZ TymjVSbIbueBVseC8wY6Rq QVBpWUOvvo4sAGTafM6lGN guy5KvkqekZHQpEZZeAGQu sgHmfy9zHWZvuTLWUY5JQA sboWBwv8FczzAnF3rTSFO1 NUQwNjYwMjgxKSBleGNlcH KmKLDjdu02IHFdiT6ugHbz BAEmzE1cdJ6vkTdkqP0kRz CwJrKcFHaqRU1aMYRdN5xh tSKxQGMxUVJvC7asAmQwwB 9jaFxmMVxjZjJcZnMyMFxw YXJ9fQ== Embedded Images (test code = 1742778159) [facility] CenterPOCT Bjck6037-12-27 11:43:00* Test Item Value Reference Range Interpretation Comme nts POCT PREG (test code = 1605) Negative On board controls acceptable with C Line (test code = 3574) Yes POCT PREG LOT # (test code = 3575) POCT PREG TEST DATE ( test code = 3576) Lab Interpretation (test cod e = 43813-3) Normal [facility] CenterG6PD SCREENING [id number] 17:39:58* Test Item Value Reference Range Interpretation Comme nts G6PD SCREEN (test code = 0132053073) Normal Normal MARCELINO (test code = MARCELINO) Normal G6PD activity. ?No evidence of G6PD deficiency. Lab Interpretation (test code = 56703-4) Normal [facility] CenterQUANTIFERON TB ASSAY [id number] 18:27:02* Test Item Value Reference Range Interpretation Comme nts QFT Gold Plus Result (test code = 84779-6) Negative Negative MARCELINO (test code = MARCELINO) [...] /publications/guidelin es/default.htm. Lab Interpretation (test code = 85532-5) Normal [facility] CenterTHIOPURINE METHYLTRANSFERASE, [id number] 03:08:32* Test Item Value Reference Range Interpretation Comme nts THIOPURINE METHYLTRANSFERASE, RBC (test code = 65791-7) 27.1 U/mL 24.0-44.0 INTERPRETIVE INF ORMATION: Thiopurine [...] developed and its performance characteristics determined by [employer]. It has not been cleared or approved by the [place] Food and Drug Administration. This test was performed in a CLIA certified laboratory and is intended for clinical purposes.Performed By: [employer] [place] [address] [id number] Director: Alex Adrian MD, PhDCLIA Number: [id number] [facility] CenterQUANTIFERON-TB [id number] 21:43:02* Test Item Value Reference Range Interpretation Comme nts Extra Tube (test code = 2911372199) Received in Lab [facility] CenterLUPUS ANTICOAGULANT REFLEXIVE [id number] 20:21:52* Test Item Value Reference Range Interpretation Comments Prothrombin Time (test code = 5902-2) 13.0 See_Comment [Automated message] The system which generated this result transmitted reference range: 12.0 - 15.5 sec. The reference range was not used to interpret this result as normal/abnormal. PTT-LA Screen (PTT-D) (test code = 39510-1) 43 See_Comment [Automated [employer]] The system which generated this result transmitted reference range: 32 - 48 sec. The reference range was not used to interpret this result as normal/abnormal. Thrombin Time (test code = 3243-3) Not Applicable See_Comment [Automated [employer]] The system which generated this result transmitted [...] normal/abnormal. PTT-D Heparin Neutralized (test code = 83065-2) Not Applicable See_Comment [Automated messa ge] The [...] Platelet Neutralization (PTT-D, Confirm) (test code = 12994-1) Not Applicable Negative dRVVT Screen (test code = 6303-2) 31 See_Comment L [Automated messa ge] The system which generated this result transmitted reference range: 33 - 44 sec. The reference range was not used to interpret this result as normal/abnormal. dRVVT 1:1 Mix (test code = 97992-1) Not Applicable See_Comment [Automated messa ge] The system which generated this result transmitted reference range: 33 - 44 sec. The reference range was not used to interpret this result as normal/abnormal. dRVVT Confirmation (test code = 98134-0) Not Applicable Negative ratio Hexagonal Phospholipid Neutral Reflex (test code = 95472-8) Not Applicable Negative Lupus Anticoagulant Interpretation (test code = 20355-1) See Note Lupus anticoagul ant not detected.The [...] testing has not already been performed.Performed By: [employer] [place] [address] [id number] Director: Alex Adrian MD, PhDCLIA Number: [id number] Lab Interpretation (test code = 93542-4) Abnormal [facility] CenterGwiyffRIVY-SPSNRUJBWGBCYJVUZ1642-44-22 15:04:39* Test Item Value Reference Range Interpretation Comme nts Anti-Ribonucleoprotein (test code = 5608026583) Negative Negative MARCELINO (test code = MARCELINO) Positive - Antibod y detected.Negative - No antibody detected. Lab Interpretation (test code = 62851-6) Normal [facility] CenterANTI-DUMONT(SM)2023-04-11 15:04:39* Test Item Value Reference Range Interpretation Comme nts Anti-Dumont (test code = 0139896170) Negative Negative MARCELINO (test code = MARCELINO) Positive - Antibod y detected.Negative - No antibody detected. Lab Interpretation (test code = 23676-3) Normal [facility] CenterANTI-SSA(RO)2023-04-11 15:04:39* Test Item Value Reference Range Interpretation Comme nts ANTI-SSA(RO) (test code = 0946055666) Negative Negative MARCELINO (test code = MARCELINO) Positive - Antibod y detected.Negative - No antibody detected. Lab Interpretation (test code = 66598-2) Normal [facility] CenterANTI-SSB(LA)2023-04-11 15:04:39* Test Item Value Reference Range Interpretation Comme nts Anti-SSB(LA) (test code = 9218942674) Negative Negative MARCELINO (test code = MARCELINO) Positive - Antibod y detected.Negative - No antibody detected. Lab Interpretation (test code = 62823-9) Normal [facility] CenterANTI-DOUBLE STRANDED [id number] 15:04:38* Test Item Value Reference Range Interpretation Comme nts ANTI-DSDNA (test code = 2268423870) See_Comment [Automated message] The system which generated this result transmitted reference range: 0.0 - 4.0 IU/mL. The reference range was not used to interpret this result as normal/abnormal. MARCELINO (test code = MARCELINO) Negative ? ?< or = 4 IU/mLPositive ? ? ?> or = 10 IU/mLIndetermin ate ?5-9 IU/mL Lab Interpretation (test code = 35040-1) Normal [facility] CenterVITAMIN D, [id number]-[id number] 21:32:37* Test Item Value Reference Range Interpretation Comme nts VIT D 25OH (test code = 27685-3) 17 ng/mL 25-80 L MARCELINO (test code = MARCELINO) Deficiency: <20 ng/mLInsufficiency: 20-24 ng/mLOptimal: 25-80 ng/mL Lab Interpretation (test code = 19546-0) Abnormal [facility] CenterC3 EPLNPUTPRZ5749-67-30 19:42:07* Test Item Value Reference Range Interpretation Comme nts C3 (test code = 0009927647) 113 mg/dL 86-184 Lab Interpretation (test cod e = 08338-0) Normal [facility] CenterC4 [id number] 19:42:07* Test Item Value Reference Range Interpretation Comme nts C4 (test code = 7013623430) 40 mg/dL 20-59 Lab Interpretation (test cod e = 07233-1) Normal [facility] CenterC-REACTIVE [id number] 19:42:07* Test Item Value Reference Range Interpretation Comme nts CRP (test code = 1600311241) 1.4 mg/dL <=0.8 H Lab Interpretation (test cod e = 14824-4) Abnormal [facility] CenterIRON AGJQS3728-58-23 18:18:12* Test Item Value Reference Range Interpretation Comme nts IRON (test code = 2128184794) 35 ug/dL 50-160 L TIBC (test code = 0933304441) 425 ug/dL 250-410 H % FE SAT (test code = 5676340181) 8 % 20-50 L Lab Interpretation (test cod e = 92070-1) Abnormal [facility] CenterCREATINE KGWDUR5504-73-95 18:08:29* Test Item Value Reference Range Interpretation Comme nts CK (test code = 9235809865) 31 U/L 33-194 L Lab Interpretation (test cod e = 17066-2) Abnormal [facility] CenterCOMP. METABOLIC PANEL (61850)2023-01-26 03:18:50* Test Item Value Reference Range Interpretation Comme nts NA (test code = 2435356614) 139 mmol/L 135-145 K (test code = 7158017729) 4.0 mmol/L 3.5-5.0 CL (test code = 6874656570) 103 mmol/L 98-108 CO2 TOTAL (test code = 3276309176) 25 mmol/L 23-31 AGAP (test code = 6150941372) 11 2-16 BUN (test code = 5495217503) 12 mg/dL 7-23 GLUCOSE (test code = 4710114793) 93 mg/dL 70-110 CREATININE (test code = 9800650224) 0.62 mg/dL 0.50-1.04 TOTAL BILI (test code = 6434816078) 0.4 mg/dL 0.1-1.1 CALCIUM (test code = 6295998194) 9.3 mg/dL 8.6-10.6 T PROTEIN (test code = 0851667745) 8.1 g/dL 6.3-8.2 ALBUMIN (test code = 3275823116) 4.4 g/dL 3.5-5.0 ALK PHOS (test code = 2662086843) 89 U/L 34-122 ALTv (test code = 1742-6) 19 U/L 5-35 AST(SGOT) (test code = 5825366660) 34 U/L 13-40 eGFR (test code = 1507746280) 113.8 mL/min/1.73m2 MARCELINO (test code = MARCELINO) [...] or abnormalities in imaging tests). [facility] CenterLIPASE2023-08-08 03:18:49* Test Item Value Reference Range Interpretation Comme nts LIPASE (test code = 1695099701) 132 U/L 0-220 Lab Interpretation (test cod e = 68605-2) Normal [facility] CenterCB WITH EFKN2726-64-58 02:53:28* Test Item Value Reference Range Interpretation Comme nts WBC (test code = 6690-2) 8.11 See_Comment [Automated messa ge] The system which generated this result transmitted reference range: 4.30 - 11.10 10*3/?L. The reference range was not used to interpret this result as normal/abnormal. RBC (test code = 789-8) 3.54 See_Comment L [Automated messa ge] The system [...] 31.6 g/dL 31.6-35.1 RDW-SD (test code = 52169-3) 42.7 fL 39.0-49.9 RDW-CV (test code = 788-0) 13.4 % 12.0-15.5 PLT (test code = 777-3) 424 See_Comment H [Automated messa ge] The system which generated this result transmitted reference range: 166 - 358 10*3/?L. The reference range was not used to interpret this result as normal/abnormal. MPV (test code = 15690-5) 9.9 fL 9.5-12.9 IPF % (test code = 8510039750) 2.3 % 1.3-7.7 Platelet count measured by fluorescence method. NRBC/100 WBC (test code = 3245378433) 0.0 See_Comment [Automated me ssage] The system which generated this result transmitted reference range: 0.0 - 10.0 /100 WBCs. The reference range was not used to interpret this result as normal/abnormal. NRBC x10^3 (test code = 5486155713) See_Comment [Automated messa ge] The system which generated this result transmitted reference range: 10*3/?L. The reference range was not used to interpret this result as normal/abnormal. GRAN MAT (NEUT) % (test code = 770-8) 59.8 % IMM GRAN % (test code = 6959578153) 0.60 % LYMPH % (test code = 736-9) 29.3 % MONO % (test code = 5905-5) 8.5 % EOS % (test code = 713-8) 1.2 % BASO % (test code = 706-2) 0.6 % GRAN MAT x10^3(ANC) (test code = 2264034387) 4.84 10*3/uL 1.88-7.09 IMM GRAN x10^3 (test code = 8495095449) 0.05 10*3/uL 0.00-0.06 LYMPH x10^3 (test code = 731-0) 2.38 10*3/uL 1.32-3.29 MONO x10^3 (test code = 742-7) 0.69 10*3/uL 0.33-0.92 EOS x10^3 (test code = 711-2) 0.10 10*3/uL 0.03-0.39 BASO x10^3 (test code = 704-7) 0.05 10*3/uL 0.01-0.07 Lab Interpretation (test code = 95238-8) Abnormal [facility] [id number] 02:03:00* Test Item Value Reference Range Interpretation Comme nts POCT PREG (test code = 1605) Negative On board controls acceptable with C Line (test code = 3574) Yes POCT PREG LOT # (test code = 3575) [id number] POCT PREG TEST DATE ( test code = 357) 03/26/2024 Lab Interpretation (test cod e = 75174-8) [id number] 17:54:00* Test Item Value Reference Range Interpretation Comme nts POCT PREG (test code = 1605) Positive On board controls acceptable with C Line (test code = 357) Yes POCT PREG LOT # (test code = 3575) POCT PREG TEST DATE ( test code = 357) Lab Interpretation (test cod e = 40331-6) [facility] [id number] 04:28:06* Test Item Value Reference Range Interpretation [...] result as normal/abnormal. MPV (test code = 71287-5) 10.9 fL 9.5-12.9 RDW-CV (test code = 788-0) 13.1 % 12.0-15.5 RDW-SD (test code = 11378-9) 42.8 fL 39.0-49.9 NRBC x10^3 (test code = 5531817921) See_Comment [Automated messa ge] The system which generated this result transmitted reference range: 10*3/?L. The reference range was not used to interpret this result as normal/abnormal. NRBC/100 WBC (test code = 7715321144) 0.0 See_Comment [Automated messa ge] The system which generated this result transmitted reference range: 0.0 - 10.0 /100 WBCs. The reference range was not used to interpret this result as normal/abnormal. IPF % (test code = 8605581318) Lab Interpretation (test code = 03651-9) Abnormal [facility] WITHOUT [id number] 04:28:06* Test Item Value Reference Range Interpretation [...] result as normal/abnormal. MPV (test code = 08418-7) 10.9 fL 9.5-12.9 RDW-CV (test code = 788-0) 13.1 % 12.0-15.5 RDW-SD (test code = 72819-9) 42.8 fL 39.0-49.9 NRBC x10^3 (test code = 9929992863) See_Comment [Automated [employer]] The system which generated this result transmitted reference range: 10*3/?L. The reference range was not used to interpret this result as normal/abnormal. NRBC/100 WBC (test code = 6712940230) 0.0 See_Comment [Automated [employer]] The system which generated this result transmitted reference range: 0.0 - 10.0 /100 WBCs. The reference range was not used to interpret this result as normal/abnormal. IPF % (test code = 9916685394) Lab Interpretation (test code = 48505-3) Abnormal [facility] BETA HCG [id number] 19:25:18* Test Item Value Reference Range Interpretation Comme nts BETA HCG (test code = 4305174824) 95024.00 See_Comment [Automated [employer]] The system which generated this result transmitted reference range: Non- female and male patients: <5 mIU/mL. The reference range was not used to interpret this result as normal/abnormal. MARCELINO (test code = MARCELINO) Gestational Age ?Range (mIU/mL) 1-10 ?Weeks ?[phone] Weeks ?91681-94473955-50 Weeks ?1495-64873593-51 Weeks ?4416-673684 Biotin has been reported to cause a negative bias, interpret results relative to patient's use of biotin. [facility] BETA HCG [id number] 19:25:18* Test Item Value Reference Range Interpretation Comme nts BETA HCG (test code = 3688876867) 45177.00 See_Comment [Automated [employer]] The system which generated this result transmitted reference range: Non- female and male patients: <5 mIU/mL. The reference range was not used to interpret this result as normal/abnormal. MARCELINO (test code = MARCELINO) Gestational Age ?Range (mIU/mL) 1-10 ?Weeks ?90-23733727-44 Weeks ?52313-00283454-55 Weeks ?5381-09355977-16 Weeks ?8242-227728 Biotin has been reported to cause a negative bias, interpret results relative to patient's use of biotin. [facility]. METABOLIC PANEL (82460)2023-01-08 16:46:39* Test Item Value Reference Range Interpretation Comme nts NA (test code = 8155591506) 136 mmol/L 135-145 K (test code = 3841469004) 3.6 mmol/L 3.5-5.0 CL (test code = 7170812286) 104 mmol/L 98-108 CO2 TOTAL (test code = 7132170201) 23 mmol/L 23-31 AGAP (test code = 7270782498) 9 2-16 BUN (test code = 9964191627) 6 mg/dL 7-23 L GLUCOSE (test code = 2236205031) 97 mg/dL 70-110 CREATININE (test code = 4401863111) 0.49 mg/dL 0.50-1.04 L TOTAL BILI (test code = 6940583464) 0.5 mg/dL 0.1-1.1 CALCIUM (test code = 5848811249) 8.7 mg/dL 8.6-10.6 T PROTEIN (test code = 7998004852) 7.5 g/dL 6.3-8.2 ALBUMIN (test code = 3011604675) 3.9 g/dL 3.5-5.0 ALK PHOS (test code = 3349819305) 61 U/L 34-122 ALTv (test code = 1742-6) 18 U/L 5-35 AST(SGOT) (test code = 0447876920) 23 U/L 13-40 eGFR (test code = 2960499952) 149.3 mL/min/1.73m2 MARCELINO (test code = MARCELINO) [...] imaging tests). Lab Interpretation (test code = 27187-7) Abnormal [facility]. METABOLIC PANEL (61408)2023-01-08 16:46:39* Test Item Value Reference Range Interpretation Comme nts NA (test code = 1673352851) 136 mmol/L 135-145 K (test code = 7418040280) 3.6 mmol/L 3.5-5.0 CL (test code = 6389021689) 104 mmol/L 98-108 CO2 TOTAL (test code = 6537564605) 23 mmol/L 23-31 AGAP (test code = 1229645142) 9 2-16 BUN (test code = 8020862651) 6 mg/dL 7-23 L GLUCOSE (test code = 6338077127) 97 mg/dL 70-110 CREATININE (test code = 2718685886) 0.49 mg/dL 0.50-1.04 L TOTAL BILI (test code = 8413044722) 0.5 mg/dL 0.1-1.1 CALCIUM (test code = 4437003959) 8.7 mg/dL 8.6-10.6 T PROTEIN (test code = 9923253843) 7.5 g/dL 6.3-8.2 ALBUMIN (test code = 9591010911) 3.9 g/dL 3.5-5.0 ALK PHOS (test code = 6206120623) 61 U/L 34-122 ALTv (test code = 1742-6) 18 U/L 5-35 AST(SGOT) (test code = 0175549273) 23 U/L 13-40 eGFR (test code = 6057374418) 149.3 mL/min/1.73m2 MARCELINO (test code = MARCELINO) [...] imaging tests). Lab Interpretation (test code = 81663-7) [facility] 16:46:19* Test Item Value Reference Range Interpretation Comme nts LIPASE (test code = 7829873624) 81 U/L 0-220 Lab Interpretation (test cod e = 67538-2) Normal [facility] 16:46:19* Test Item Value Reference Range Interpretation Comme nts LIPASE (test code = 1125590369) 81 U/L 0-220 Lab Interpretation (test cod e = 59868-4) Normal [facility] WITH [id number] 16:37:55* Test Item Value Reference Range Interpretation [...] 33.0 g/dL 31.6-35.1 RDW-SD (test code = 76687-9) 40.9 fL 39.0-49.9 RDW-CV (test code = 788-0) 13.1 % 12.0-15.5 PLT (test code = 777-3) 273 See_Comment [Automated messa ge] The system which generated this result transmitted reference range: 166 - 358 10*3/?L. The reference range was not used to interpret this result as normal/abnormal. MPV (test code = 45725-4) 10.2 fL 9.5-12.9 NRBC/100 WBC (test code = 9510463406) 0.0 See_Comment [Automated me ssage] The system which generated this result transmitted reference range: 0.0 - 10.0 /100 WBCs. The reference range was not used to interpret this result as normal/abnormal. NRBC x10^3 (test code = 1789945459) See_Comment [Automated messa ge] The system which generated this result transmitted reference range: 10*3/?L. The reference range was not used to interpret this result as normal/abnormal. GRAN MAT (NEUT) % (test code = 770-8) 79.1 % IMM GRAN % (test code = 6075556912) 0.30 % LYMPH % (test code = 736-9) 10.3 % MONO % (test code = 5905-5) 8.6 % EOS % (test code = 713-8) 1.2 % BASO % (test code = 706-2) 0.5 % GRAN MAT x10^3(ANC) (test code = 2809446630) 4.78 10*3/uL 1.88-7.09 IMM GRAN x10^3 (test code = 2316318644) 0.00-0.06 LYMPH x10^3 (test code = 731-0) 0.62 10*3/uL 1.32-3.29 L MONO x10^3 (test code = 742-7) 0.52 10*3/uL 0.33-0.92 EOS x10^3 (test code = 711-2) 0.07 10*3/uL 0.03-0.39 BASO x10^3 (test code = 704-7) 0.03 10*3/uL 0.01-0.07 Lab Interpretation (test code = 14814-2) Abnormal [facility] WITH [id number] 16:37:55* Test Item Value Reference Range Interpretation [...] 33.0 g/dL 31.6-35.1 RDW-SD (test code = 45827-8) 40.9 fL 39.0-49.9 RDW-CV (test code = 788-0) 13.1 % 12.0-15.5 PLT (test code = 777-3) 273 See_Comment [Automated [employer]] The system which generated this result transmitted reference range: 166 - 358 10*3/?L. The reference range was not used to interpret this result as normal/abnormal. MPV (test code = 59587-5) 10.2 fL 9.5-12.9 NRBC/100 WBC (test code = 9865510749) 0.0 See_Comment [Automated [employer] ssage] The system which generated this result transmitted reference range: 0.0 - 10.0 /100 WBCs. The reference range was not used to interpret this result as normal/abnormal. NRBC x10^3 (test code = 5169164693) See_Comment [Automated [employer]] The system which generated this result transmitted reference range: 10*3/?L. The reference range was not used to interpret this result as normal/abnormal. GRAN MAT (NEUT) % (test code = 770-8) 79.1 % IMM GRAN % (test code = 1902826234) 0.30 % LYMPH % (test code = 736-9) 10.3 % MONO % (test code = 5905-5) 8.6 % EOS % (test code = 713-8) 1.2 % BASO % (test code = 706-2) 0.5 % GRAN MAT x10^3(ANC) (test code = 9064974811) 4.78 10*3/uL 1.88-7.09 IMM GRAN x10^3 (test code = 7356975118) 0.00-0.06 LYMPH x10^3 (test code = 731-0) 0.62 10*3/uL 1.32-3.29 L MONO x10^3 (test code = 742-7) 0.52 10*3/uL 0.33-0.92 EOS x10^3 (test code = 711-2) 0.07 10*3/uL 0.03-0.39 BASO x10^3 (test code = 704-7) 0.03 10*3/uL 0.01-0.07 Lab Interpretation (test code = 40051-7) [facility]normal [facility] Center[facility] METABOLIC PANEL (48232)2023-01-02 04:39:51* Test Item Value Reference Range Interpretation Comme nts NA (test code = 5693070879) 136 mmol/L 135-145 K (test code = 7070782577) 5.0 mmol/L 3.5-5.0 CL (test code = 0154942257) 101 mmol/L 98-108 CO2 TOTAL (test code = 2543785236) 25 mmol/L 23-31 AGAP (test code = 1009315849) 10 2-16 BUN (test code = 3882113960) 9 mg/dL 7-23 GLUCOSE (test code = 9601816480) 81 mg/dL 70-110 CREATININE (test code = 1970822276) 0.46 mg/dL 0.50-1.04 L TOTAL BILI (test code = 1509047106) 0.7 mg/dL 0.1-1.1 CALCIUM (test code = 6943500259) 9.6 mg/dL 8.6-10.6 T PROTEIN (test code = 8217907869) 8.4 g/dL 6.3-8.2 H ALBUMIN (test code = 5842135787) 4.5 g/dL 3.5-5.0 ALK PHOS (test code = 3434286608) 61 U/L 34-122 ALTv (test code = 1742-6) 19 U/L 5-35 AST(SGOT) (test code = 7884046690) 32 U/L 13-40 eGFR (test code = 7910607208) 160.6 mL/min/1.73m2 MARCELINO (test code = MARCELINO) [...] imaging tests). Lab Interpretation (test code = 81534-6) Abnormal [facility] WITH [id number] 04:26:51* Test Item Value Reference Range Interpretation Comme nts WBC (test code = 6690-2) 8.93 See_Comment [Automated [employer]] The system which generated this result transmitted reference range: 4.30 - 11.10 10*3/?L. The reference range was not used to interpret this result as normal/abnormal. RBC (test code = 789-8) 4.16 See_Comment [Automated [employer]] The system which generated this result transmitted [...] 32.4 g/dL 31.6-35.1 RDW-SD (test code = 63351-1) 42.9 fL 39.0-49.9 RDW-CV (test code = 788-0) 13.2 % 12.0-15.5 PLT (test code = 777-3) 389 See_Comment H [Automated messa ge] The system which generated this result transmitted reference range: 166 - 358 10*3/?L. The reference range was not used to interpret this result as normal/abnormal. MPV (test code = 87977-0) 10.1 fL 9.5-12.9 NRBC/100 WBC (test code = 6240547157) 0.0 See_Comment [Automated me ssage] The system which generated this result transmitted reference range: 0.0 - 10.0 /100 WBCs. The reference range was not used to interpret this result as normal/abnormal. NRBC x10^3 (test code = 6106232176) See_Comment [Automated messa ge] The system which generated this result transmitted reference range: 10*3/?L. The reference range was not used to interpret this result as normal/abnormal. GRAN MAT (NEUT) % (test code = 770-8) 62.8 % IMM GRAN % (test code = 8181764616) 0.30 % LYMPH % (test code = 736-9) 27.4 % MONO % (test code = 5905-5) 7.2 % EOS % (test code = 713-8) 1.7 % BASO % (test code = 706-2) 0.6 % GRAN MAT x10^3(ANC) (test code = 5883321710) 5.61 10*3/uL 1.88-7.09 IMM GRAN x10^3 (test code = 9580990172) 0.03 10*3/uL 0.00-0.06 LYMPH x10^3 (test code = 731-0) 2.45 10*3/uL 1.32-3.29 MONO x10^3 (test code = 742-7) 0.64 10*3/uL 0.33-0.92 EOS x10^3 (test code = 711-2) 0.15 10*3/uL 0.03-0.39 BASO x10^3 (test code = 704-7) 0.05 10*3/uL 0.01-0.07 Lab Interpretation (test code = 81063-0) [facility]normal [facility] Center[facility] Screen - ONCE [id number] 04:23:00* Test Item Value Reference Range Interpretation Comme nts ABO & RH (test code = 20) A Positive IAT (test code = 1185) Negative [facility] CenterPOTN UR[facility] W SPECIFIC [id number] 16:06:00* Test Item Value Reference Range Interpretation [...] U APPEAR (test code = 3267) . [facility]PO[facility] W/O SPECIFIC [id number] 15:38:00* Test Item Value Reference Range Interpretation [...] = 3257) NEG Negative - Negati ve [facility] URINALYSIS W/O SPECIFIC [id number] 15:38:00* Test Item Value Reference Range Interpretation [...] = 3257) NEG Negative - Negati ve [facility] [id number] 15:37:00* Test Item Value Reference Range Interpretation Comme nts POCT PREG (test code = 1605) Positive On board controls acceptable with C Line (test code = 3574) Yes POCT PREG LOT # (test code = 3575) POCT PREG TEST DATE ( test code = 3576) [facility] [id number] 15:37:00* Test Item Value Reference Range Interpretation Comme nts POCT PREG (test code = 1605) Positive On board controls acceptable with C Line (test code = 3574) Yes POCT PREG LOT # (test code = 3575) POCT PREG TEST DATE ( test code = 3576) [facility] [id number] 17:56:00* Test Item Value Reference Range Interpretation Comme nts POCT PREG (test code = 1605) Positive On board controls acceptable with C Line (test code = 3574) Yes POCT PREG LOT # (test code = 3575) POCT PREG TEST DATE ( test code = 3576) [facility] [id number] 17:56:00* Test Item Value Reference Range Interpretation Comme nts POCT PREG (test code = 1605) Positive On board controls acceptable with C Line (test code = 3574) Yes POCT PREG LOT # (test code = 3575) POCT PREG TEST DATE ( test code = 3576) [facility] URINALYSIS W/O SPECIFIC [id number] 16:24:00* Test Item Value Reference Range Interpretation [...] = 3257) Trace Negative - Negati ve [facility] URINALYSIS W/O SPECIFIC [id number] 16:24:00* Test Item Value Reference Range Interpretation [...] = 3257) Trace Negative - Negati ve [facility] [id number] 20:16:00* Test Item Value Reference Range Interpretation Comme nts POCT PREG (test code = 1605) Negative On board controls acceptable with C Line (test code = 3574) Yes POCT PREG LOT # (test code = 3575) POCT PREG TEST DATE ( test code = 3576) [facility] BHCG (QUANTITATIVE)2022-09-27 00:50:12* Test Item Value Reference Range Interpretation Comme nts BETA HCG (test code = 2922949015) 2138.50 See_Comment [Automated [employer]] The system which generated this result transmitted reference range: Non- female and male patients: <5 mIU/mL. The reference range was not used to interpret this result as normal/abnormal. MARCELINO (test code = MARCELINO) Gestational Age ?Range (mIU/mL) 1-10 ?Weeks ?[id number] Weeks ?66495-49660853-27 Weeks ?5033-79465214-30 Weeks ?1531-157361 Biotin has been reported to cause a negative bias, interpret results relative to patient's use of biotin. [facility]2022-[facility]-27 00:50:12* Test Item Value Reference Range Interpretation Comme nts BETA HCG (test code = 0602003639) 2138.50 See_Comment [Automated [employer]] The system which generated this result transmitted reference range: Non- female and male patients: <5 mIU/mL. The reference range was not used to interpret this result as normal/abnormal. MARCELINO (test code = MARCELINO) Gestational Age ?Range (mIU/mL) 1-10 ?Weeks ?66-62961583-34 Weeks ?90312-33231788-96 Weeks ?5609-41026622-57 Weeks ?1531-504687 Biotin has been reported to cause a negative bias, interpret results relative to patient's use of biotin. [facility]. METABOLIC PANEL (05467)2022-09-27 00:25:05* Test Item Value Reference Range Interpretation Comme nts NA (test code = 9987919702) 137 mmol/L 135-145 K (test code = 1085411992) 4.3 mmol/L 3.5-5.0 CL (test code = 0097228523) 103 mmol/L 98-108 CO2 TOTAL (test code = 4699495886) 24 mmol/L 23-31 AGAP (test code = 4902950198) 10 2-16 BUN (test code = 3541538071) 9 mg/dL 7-23 GLUCOSE (test code = 7248488394) 88 mg/dL 70-110 CREATININE (test code = 2191794498) 0.54 mg/dL 0.50-1.04 TOTAL BILI (test code = 0051675540) 0.4 mg/dL 0.1-1.1 CALCIUM (test code = 6213642273) 9.4 mg/dL 8.6-10.6 T PROTEIN (test code = 6258035679) 7.9 g/dL 6.3-8.2 ALBUMIN (test code = 6571855325) 4.5 g/dL 3.5-5.0 ALK PHOS (test code = 9206377297) 77 U/L 34-122 ALTv (test code = 1742-6) 18 U/L 5-35 AST(SGOT) (test code = 2526718935) 20 U/L 13-40 eGFR (test code = 2141059429) 133.5 mL/min/1.73m2 MARCELINO (test code = MARCELINO) [...] or urine or abnormalities in imaging tests). [facility]. METABOLIC PANEL (81585)2022-09-27 00:25:05* Test Item Value Reference Range Interpretation Comme nts NA (test code = 6853011138) 137 mmol/L 135-145 K (test code = 9104027136) 4.3 mmol/L 3.5-5.0 CL (test code = 1699347988) 103 mmol/L 98-108 CO2 TOTAL (test code = 7723275328) 24 mmol/L 23-31 AGAP (test code = 0534248953) 10 2-16 BUN (test code = 1360537214) 9 mg/dL 7-23 GLUCOSE (test code = 9897833553) 88 mg/dL 70-110 CREATININE (test code = 4999328411) 0.54 mg/dL 0.50-1.04 TOTAL BILI (test code = 8262073846) 0.4 mg/dL 0.1-1.1 CALCIUM (test code = 3167734331) 9.4 mg/dL 8.6-10.6 T PROTEIN (test code = 8638859487) 7.9 g/dL 6.3-8.2 ALBUMIN (test code = 3909981770) 4.5 g/dL 3.5-5.0 ALK PHOS (test code = 7351838216) 77 U/L 34-122 ALTv (test code = 1742-6) 18 U/L 5-35 AST(SGOT) (test code = 7031240096) 20 U/L 13-40 eGFR (test code = 6401440314) 133.5 mL/min/1.73m2 MARCELINO (test code = MARCELINO) [...] or abnormalities in imaging tests). [facility] CenterPROTHROMBIN TIME / [id number] 00:16:48* Test Item Value Reference Range Interpretation Comme [facility] (test code = 5964-2) 11.7 See_Comment L [Automated [employer]] The system which generated this result transmitted reference range: 12.0 - 14.7 Seconds. The reference range was not used to interpret this result as normal/abnormal. INR (test code = 6301-6) 0.9 Normal INR <1.1; Warfarin Therapeutic range 2.0 to 3.0 or 2.5 to 3.5, depending upon the indications. Lab Interpretation (test code = 61770-3) Abnormal [facility] CenterPROTHR[facility] TIME / [id number] 00:16:48* Test Item Value Reference Range Interpretation Comme [facility] PROTIME PATIENT (test code = 5964-2) 11.7 See_Comment L [Automated [employer]] The system which generated this result transmitted reference range: 12.0 - 14.7 Seconds. The reference range was not used to interpret this result as normal/abnormal. INR (test code = 6301-6) 0.9 Normal INR <1.1; Warfarin Therapeutic range 2.0 to 3.0 or 2.5 to 3.5, depending upon the indications. Lab Interpretation (test code = 84023-2) Abnormal [facility] WITH [id number] 00:09:05* Test Item Value Reference Range Interpretation Comme nts WBC (test code = 6690-2) 9.64 See_Comment [Automated [employer]] The system which generated this result transmitted reference range: 4.30 - 11.10 10*3/?L. The reference range was not used to interpret this result as normal/abnormal. RBC (test code = 789-8) 4.36 See_Comment [Automated [employer]] The system which generated this result [...] 32.5 g/dL 31.6-35.1 RDW-SD (test code = 86031-3) 42.0 fL 39.0-49.9 RDW-CV (test code = 788-0) 13.3 % 12.0-15.5 PLT (test code = 777-3) 364 See_Comment H [Automated [employer]] The system which generated this result transmitted reference range: 166 - 358 10*3/?L. The reference range was not used to interpret this result as normal/abnormal. MPV (test code = 04939-6) 10.0 fL 9.5-12.9 NRBC/100 WBC (test code = 9974671924) 0.0 See_Comment [Automated [employer] ssage] The system which generated this result transmitted reference range: 0.0 - 10.0 /100 WBCs. The reference range was not used to interpret this result as normal/abnormal. NRBC x10^3 (test code = 9083169848) See_Comment [Automated messa ge] The system which generated this result transmitted reference range: 10*3/?L. The reference range was not used to interpret this result as normal/abnormal. GRAN MAT (NEUT) % (test code = 770-8) 72.5 % IMM GRAN % (test code = 3683080057) 0.30 % LYMPH % (test code = 736-9) 19.0 % MONO % (test code = 5905-5) 6.6 % EOS % (test code = 713-8) 1.2 % BASO % (test code = 706-2) 0.4 % GRAN MAT x10^3(ANC) (test code = 3989971915) 6.98 10*3/uL 1.88-7.09 IMM GRAN x10^3 (test code = 7990884736) 0.03 10*3/uL 0.00-0.06 LYMPH x10^3 (test code = 731-0) 1.83 10*3/uL 1.32-3.29 MONO x10^3 (test code = 742-7) 0.64 10*3/uL 0.33-0.92 EOS x10^3 (test code = 711-2) 0.12 10*3/uL 0.03-0.39 BASO x10^3 (test code = 704-7) 0.04 10*3/uL 0.01-0.07 Lab Interpretation (test code = 48386-3) Abnormal [facility] WITH [id number] 00:09:05* Test Item Value Reference Range Interpretation [...] 32.5 g/dL 31.6-35.1 RDW-SD (test code = 65278-8) 42.0 fL 39.0-49.9 RDW-CV (test code = 788-0) 13.3 % 12.0-15.5 PLT (test code = 777-3) 364 See_Comment H [Automated [employer]] The system which generated this result transmitted reference range: 166 - 358 10*3/?L. The reference range was not used to interpret this result as normal/abnormal. MPV (test code = 51118-3) 10.0 fL 9.5-12.9 NRBC/100 WBC (test code = 8512337959) 0.0 See_Comment [Automated [employer] ssage] The system which generated this result transmitted reference range: 0.0 - 10.0 /100 WBCs. The reference range was not used to interpret this result as normal/abnormal. NRBC x10^3 (test code = 4192689035) See_Comment [Automated [employer]] The system which generated this result transmitted reference range: 10*3/?L. The reference range was not used to interpret this result as normal/abnormal. GRAN MAT (NEUT) % (test code = 770-8) 72.5 % IMM GRAN % (test code = 0758912621) 0.30 % LYMPH % (test code = 736-9) 19.0 % MONO % (test code = 5905-5) 6.6 % EOS % (test code = 713-8) 1.2 % BASO % (test code = 706-2) 0.4 % GRAN MAT x10^3(ANC) (test code = 8909158847) 6.98 10*3/uL 1.88-7.09 IMM GRAN x10^3 (test code = 3117018371) 0.03 10*3/uL 0.00-0.06 LYMPH x10^3 (test code = 731-0) 1.83 10*3/uL 1.32-3.29 MONO x10^3 (test code = 742-7) 0.64 10*3/uL 0.33-0.92 EOS x10^3 (test code = 711-2) 0.12 10*3/uL 0.03-0.39 BASO x10^3 (test code = 704-7) 0.04 10*3/uL 0.01-0.07 Lab Interpretation (test code = 02451-7) Abnormal [facility] [id number] 04:43:00* Test Item Value Reference Range Interpretation Comme nts POCT PREG (test code = 1605) positive On board controls acceptable with C Line (test code = 3574) positive POCT PREG LOT # (test code = 3575) [id number] POCT PREG TEST DATE ( test code = 3576) 07/21/2023 Lab Interpretation (test cod e = 32006-5) Normal [facility] URINALYSIS W SPECIFIC [id number] 21:19:00* Test Item Value Reference Range Interpretation [...] POCT U APPEAR (test code = 3267) [facility] URINALYSIS W SPECIFIC [id number] 21:19:00* Test Item Value Reference Range Interpretation [...] POCT U APPEAR (test code = 3267) [facility] [id number] 21:40:00* Test Item Value Reference Range Interpretation Comme nts POCT PREG (test code = 1605) Positive On board controls acceptable with C Line (test code = 3574) Yes POCT PREG LOT # (test code = 3575) POCT PREG TEST DATE ( test code = 3576) [facility] URINALYSIS W/O SPECIFIC [id number] 21:34:00* Test Item Value Reference Range Interpretation [...] = 3257) negative Negative - Negati ve [facility] [id number] 08:22:00* Test Item Value Reference Range Interpretation Comme nts POCT PREG (test code = 1605) neg On board controls acceptable with C Line (test code = 3574) yes POCT PREG LOT # (test code = 3575) [id number] POCT PREG TEST DATE ( test code = 3576) 09/19/2023 Lab Interpretation (test cod e = 23253-0) Normal [facility] [id number] 06:28:56 * Test Item Value Reference Range Interpretation Comme nts TSH (test code = 2872963685) See_Comment Biotin has been reported to cause a negative bias, interpret results relative to patient's use of biotin. [Automated message] The system which generated this result transmitted reference range: 0.45 - 4.70 mIU/L. The reference range was not used to interpret this result as normal/abnormal. Lab Interpretation (test code = 88197-8) Normal [facility] Center[facility] [id number] 06:28:56 * Test Item Value Reference Range Interpretation Comme nts TSH (test code = 8685413721) See_Comment Biotin has been reported to cause a negative bias, interpret results relative to patient's use of biotin. [Automated message] The system which generated this result transmitted reference range: 0.45 - 4.70 mIU/L. The reference range was not used to interpret this result as normal/abnormal. Lab Interpretation (test code = 78364-1) Normal [facility] CenterPOCT [id number] 19:31:00* Test Item Value Reference Range Interpretation Comme nts POCT PREG (test code = 1605) Negative On board controls acceptable with C Line (test code = 3574) Yes POCT PREG LOT # (test code = 3575) POCT PREG TEST DATE ( test code = 3576) [facility] [id number] 19:31:00* Test Item Value Reference Range Interpretation Comme nts POCT PREG (test code = 1605) Negative On board controls acceptable with C Line (test code = 3574) Yes POCT PREG LOT # (test code = 3575) POCT PREG TEST DATE ( test code = 3576) [facility] Consult Notes Date/Time Note Provider Source 2023-01-08 18:58:39 Associated Order(s): 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 PLANNING CONSULTANT CONSULT H&P NOTE Date of Service: 01/08/2023 [...] Chest pain or SOB Work up in [place] showed normal TSH and CXR Most recent [...] disorder) Transfusion history 2012 After First Baby Family History Problem Relation [...] N/A 09/24/2016 Surgeon: Joe Martino MD; Location: [facility] Labor and Delivery OR Location SECTION N/A 03/08/2018 Surgeon: Gloria Atkins; Location: Labor and Delivery - [place] CHOLECYSTECTOMY 2021 DILATION AND CURETTAGE (SHX) 2011 Both (Dr Martino) DILATION AND CURETTAGE (SHX) N/A 09/27/2022 Surgeon: Gillian Reno MD; Location: [facility] OR [facility] TONSILLECTOMY WITH ADENOIDECTOMY Age 2 Social History Socioeconomic History Marital status: Number of children: 2 Years of education: 11th Occupational History 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 Drug use: No Sexual activity: Yes Partners: Male control/protection: None Comment: Last intercourse: 11/19/2022 Other Topics Concern Seat Belt Yes Comment: Sometimes Social History Narrative Denies domestic or physical violence within the home Voodoo Preference: None Patient lives with her children, feels safe at home. Denies cats. Surgical History: Past Surgical History: Procedure Laterality Date SECTION Dr Aragon SECTION N/A 09/24/2016 Surgeon: Joe Martino MD; Location: [facility] Labor and Delivery OR Location SECTION N/A 03/08/2018 Surgeon: Gloria Atkins; Location: Labor and Delivery - [place] CHOLECYSTECTOMY 2021 DILATION AND CURETTAGE (SHX) 2011 Both (Dr Martino) DILATION AND CURETTAGE (SHX) N/A 09/27/2022 Surgeon: Gillian Reno MD; Location: [facility] OR LOCATION TONSILLECTOMY WITH ADENOIDECTOMY Age [...] TSH (mIU/L) Date Value 01/04/2023 1.52 Assessment/Plan: Eduar Raya is a 27 year old female, with a failed but can't rule out molar presenting with abdominal pain Hcg is trending down Patient is stable Will proceed with D&C Patient last eat at 10am, will keep NPO and proceed 8 hours later as per anesthesia Procedure reviewed with patient and consent signed She already had postop appointment/beta clinic appointment in [place] on 01/18. Encouraged to keep the appointment Mariajose Ramsey MD T [facility] - Health History and Physical Notes Date/Time Note Provider Source 2024-05-08 18:52:58 Endoscopy H & P Age: [age] year old Sex: female ASA Class: 2 Indication: blood in stool, diarrhea, dysphagia, GERD Family history of Colon Cancer/Polyps: no Blood thinners: no Previous Endoscopy: no Patient's Medications START taking these medications No medications on file CONTINUE taking these medications which have NOT CHANGED ALBUTEROL 90 MCG/ACTUATION INHALER Inhale 2 Puffs every 6 (six) hours as needed for Wheezing or Shortness of Breath. ATOGEPANT (QULIPTA) 60 MG TAB TABLET Take 1 tablet by mouth in the morning. AZELASTINE 137 MCG (0.1 %) NASAL SPRAY USE 1 SPRAY IN EACH NOSTRIL IN THE MORNING AND 1 SPRAY IN THE EVENING DIRECTED BENZONATATE 100 MG CAPSULE Take 2 capsules by mouth every 8 (eight) hours as needed for Cough. [id number] 50-325-40 MG TABLET Take 1 tablet by mouth every 4 (four) hours as needed (severe migraine). Use sparingly no more than 9 days per month DIAZEPAM 5 MG TABLET Take 1 tablet by mouth 2 (two) times daily as needed (severe migraine). No more than 2 days a week, 8 days a month. Do not take with butalbital or other AIRLINE ATTENDANT depressants DULOXETINE 30 MG CAPSULE Take 1 capsule by mouth in the morning and 1 capsule in the evening. First week, take only 1 capsule in morning, and then twice daily thereafter. ELETRIPTAN 40 MG TABLET Take 1 tablet by mouth SEE-INSTRUCTIONS. Take 1 tab at onset of migraine. May repeat in 2 hours if necessary. No more than 9 days per month GABAPENTIN 300 MG CAPSULE Take 1 capsule by mouth 3 (three) times daily as needed (pain). HYDROXYCHLOROQUINE (PLAQUENIL) 200 MG TABLET Take 1.5 tablets by mouth in the morning. KETOROLAC 10 MG TABLET Take 1 tablet by mouth every 6 (six) hours as needed (migraine). LIDOCAINE 5 % (700 MG/PATCH) PATCH Apply 1 Patch to area(s) in the morning and 1 Patch in the evening. MAGNESIUM OXIDE 400 MG (241.3 MG MAGNESIUM) TABLET Take 1 tablet by mouth in the morning. METHOCARBAMOL 750 MG TABLET Take 1 tablet by mouth 3 (three) times daily as needed for Other (muscle spasms). MINOXIDIL 2.5 MG TABLET Take 1 tablet by mouth in the morning. NORELGESTROMIN-ETHINYL ESTRADIOL (XULANE) 150-35 MCG/24 HR PATCH Apply 1 Patch to skin weekly. NORTRIPTYLINE 50 MG CAPSULE 1-2 po QHS ONDANSETRON 8 MG DISINTEGRATING TABLET Take 1 tablet by mouth every 8 (eight) hours as needed for Nausea and Vomiting (N/V) (or migraine). PEG-ELECTROLYTE SOLN 236-22.74-6.74 -5.86 GRAM SOLUTION Take as directed before colonoscopy VITAMIN W/FA TABLET Take 1 tablet by mouth in the morning. PROMETHAZINE 25 MG TABLET Take 1 tablet by mouth every 4 (four) hours as needed for N/V alternating with Ondansetron. SCOPOLAMINE TRANSDERMAL 1 MG OVER 3 DAYS PATCH Apply 1 Patch to area(s) every 72 (seventy-two) hours. For motion sickness, cruise ship SUMATRIPTAN (IMITREX) 100 MG TABLET Take 1 tablet by mouth as needed for Migraine. May repeat in 2h if headache remains UBROGEPANT (UBRELVY) 100 MG TABLET Take 1 tablet by mouth at onset of migraine symptoms. May repeat in 2 hours if needed. Max of 2 tablets per 24 hours. START taking Modified Medications as Prescribed No medications on file STOP taking these medications No medications on file Past Medical History: Diagnosis Date Abnormal uterine bleeding Anemia 2017 ongoing, taking vitamins Anxiety 2001 Resolved, not on meds Arthritis 02/19/2017 Asthma ongoing, 04/2020 in hospital for asthma attack Depression 2001 Resolved, not on meds Dysmenorrhea 04/18/2022 Esophageal reflux History of anemia 08/11/2022 HSV-1 (herpes simplex virus 1) infection Hypertension 2018 gestational, resolved. 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 Current Outpatient Medications Medication Sig Dispense Refill eletriptan 40 mg tablet Take 1 tablet by mouth SEE-INSTRUCTIONS. Take 1 tab at onset of migraine. May repeat in 2 hours if necessary. No more than 9 days per month 18 tablet 11 diazePAM 5 mg tablet Take 1 tablet by mouth 2 (two) times daily as needed (severe migraine). No more than 2 days a week, 8 days a month. Do not take with butalbital or other AIRLINE ATTENDANT depressants 15 tablet 0 scopolamine transdermal 1 mg over 3 days patch Apply 1 Patch to area(s) every 72 (seventy-two) hours. For motion sickness, cruise ship 10 Patch 3 peg-electrolyte soln 236-22.74-6.74 -5.86 gram solution Take as directed before colonoscopy 4000 mL 0 ufprtijlpo-ihumaqxivueiw-ifto 50-325-40 mg tablet Take 1 tablet by mouth every 4 (four) hours as needed (severe migraine). Use sparingly no more than 9 days per month 30 tablet 4 ketorolac 10 mg tablet Take 1 tablet by mouth every 6 (six) hours as needed (migraine). 20 tablet 6 methocarbamoL 750 mg tablet Take 1 tablet by mouth 3 (three) times daily as needed for Other (muscle spasms). 90 tablet 11 proMETHazine 25 mg tablet Take 1 tablet by mouth every 4 (four) hours as needed for N/V alternating with Ondansetron. 90 tablet 11 ubrogepant (UBRELVY) 100 mg tablet Take 1 tablet by mouth at onset of migraine symptoms. May repeat in 2 hours if needed. Max of 2 tablets per 24 hours. 16 tablet 11 atogepant (QULIPTA) 60 mg Tab tablet Take 1 tablet by mouth in the morning. 30 tablet 11 azelastine 137 mcg (0.1 %) nasal spray USE 1 SPRAY IN EACH NOSTRIL IN THE MORNING AND 1 SPRAY IN THE EVENING DIRECTED 30 mL 0 lidocaine 5 % (700 mg/patch) patch Apply 1 Patch to area(s) in the morning and 1 Patch in the evening. 60 Patch 1 ondansetron 8 mg disintegrating tablet Take 1 tablet by mouth every 8 (eight) hours as needed for Nausea and Vomiting (N/V) (or migraine). 30 tablet 11 minoxidiL 2.5 mg tablet Take 1 tablet by mouth in the morning. 30 tablet 4 hydroxychloroquine (PLAQUENIL) 200 mg tablet Take 1.5 tablets by mouth in the morning. 45 tablet 5 DULoxetine 30 mg capsule Take 1 capsule by mouth in the morning and 1 capsule in the evening. First week, take only 1 capsule in morning, and then twice daily thereafter. 60 capsule 2 nortriptyline 50 mg capsule 1-2 po QHS 60 capsule 11 sumatriptan (IMITREX) 100 mg tablet Take 1 tablet by mouth as needed for Migraine. May repeat in 2h if headache remains 16 tablet 11 gabapentin 300 mg capsule Take 1 capsule by mouth 3 (three) times daily as needed (pain). 90 capsule 0 albuterol 90 mcg/actuation inhaler Inhale 2 Puffs every 6 (six) hours as needed for Wheezing or Shortness of Breath. 18 g 0 benzonatate 100 mg capsule Take 2 capsules by mouth every 8 (eight) hours as needed for Cough. 60 capsule 0 magnesium oxide 400 mg (241.3 mg magnesium) tablet Take 1 tablet by mouth in the morning. 30 tablet 0 norelgestromin-ethinyl estradiol (XULANE) 150-35 mcg/24 hr patch Apply 1 Patch to skin weekly. 3 Patch 3 vitamin w/FA tablet Take 1 tablet by mouth in the morning. 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 Drug use: No Sexual activity: Yes Partners: Male control/protection: None Comment: Last intercourse: 11/19/2022 Other Topics Concern Seat Belt Yes Comment: Sometimes Social History Narrative Denies domestic or physical violence within the home Voodoo Preference: None Patient lives with her children, feels safe at home. Denies cats. Social Determinants of Health Financial Resource Strain: Low Risk (04/27/2023) Overall Financial Resource Strain (CARDIA) Difficulty of Paying Living Expenses: Not very hard Food Insecurity: No Food Insecurity (04/27/2023) Hunger Vital Sign Worried About Running Out of Food in the Last Year: Never true Ran Out of Food in the Last Year: Never true Transportation Needs: No Transportation Needs (04/27/2023) PRAPARE - Transportation Lack of Transportation (Medical): No Lack of Transportation (Non-Medical): No Physical Activity: Sufficiently Active (04/27/2023) Exercise Vital Sign Days of Exercise per Week: 3 days Minutes of Exercise per Session: 60 min Social Connections: Unknown (04/27/2023) Social Connection and Isolation Panel [NHANES] Frequency of Communication with Friends and Family: More than three times a week Marital Status: Housing Stability: Low Risk (04/27/2023) Housing Stability Vital Sign Unable to Pay for Housing in the Last Year: No Number of Places Lived in the Last Year: 1 Unstable Housing in the Last Year: No Mental Status: NAD, alert, answering questions appropriately Chest: no increased WOB or respiratory distress Cardiovascular: regular rate, warm, well perfused, no LE edema Abdomen: bowel sounds present, soft, non tender Impression and Plan: Change in bowel habits Diarrhea Blood in stool Proceed with colonoscopy GERD Dysphagia Will proceed with EGD Education provided to the patient and family about the procedure. Benefits, risks, alternatives, and likelihood of achieving patient's goals of care discussed. Risks discussed including but not limited to aspiration, infection, bleeding, perforation, missed polyps/lesions, failure to obtain a diagnosis, failure to complete the procedure, cardiovascular complications such as TN, stroke, arrhythmia, and . Informed consent obtained. Vasiliy Sotomayor DO Gastroenterology PGY 6 Pager#[phone] DECK INSTALLER Associated attestation - Ry Forman MD - 05/09/2024 1:09 PM TAPE DECK INSTALLER I personally examined the patient on 05/09/[address] Sotomayor's resident/fellow note as written. I actively participated in the decision-making process. Please see the resident/fellow's note for additional details. Ry Forman MD [facility] Net Coordinator Gastroenterology [facility] 2023-01-08 19:29:53 Formatting of this n ote might be different from the original. See PLANNING CONSULTANT consult note for H&P Mariajose Ramsey MD [facility]
[2024-06-01 00:36] LABS: Specific Gravity 1.022 (1.005-1.030)
[2024-06-01] MEDS ORDERED: METOCLOPRAMIDE 10 MG/2mL INJ ONE (03:46)
[2024-06-01] MEDS ORDERED: methocarbamoL 750 MG TAB ONE (03:46)
[2024-06-01] MEDS ORDERED: MORPHINE 4 MG/ML SYR ONE (03:46)
[2024-06-01] MEDS ORDERED: HYDROCORTISONE SUC 100 MG INJ ONE (03:46)
[2024-06-01] MEDS ORDERED: DIPHENHYDRAMINE 50 MG/ML VIAL ONE (03:46)
[2024-06-01] MEDS ORDERED: NA CHLORIDE 0.9% 1,000 ML ONE (03:47)
[2024-06-01] MEDS ORDERED: MORPHINE 2 MG/ML SYR ONE (03:47)
[2024-06-01 05:04] LABS: Absolute Eosinophils 0.1 K/uL (0-0.5); Absolute Lymphocytes (CBC) 2.7 K/uL (0.7-4.9); Absolute Monocytes 0.7 K/uL (0.1-1.3); Absolute Neutrophil 6.8 K/uL (1.8-8.0); Basophils % 0.3 % (0-1.3); Eosinophils % 1.3 % (0-4.4); Hematocrit 36.2 % (36.0-45.0); Hemoglobin 11.1 g/dL (12.0-15.0); Lymphocytes % 25.8 % (15.3-44.8); MCH 25.3 pg (27.0-35.0); MCHC 30.7 g/dL (32.0-36.0); MCV 82.3 fL (80-100); MPV 8.3 fL (7.6-11.3); Monocytes % 6.7 % (3.3-12.3); Neutrophils % 65.9 % (41.7-73.7); Platelets 403 thou/uL (152-406); Red Cell Distribution Width 16.3 % (12.1-15.2)
[2024-06-01] MEDS ORDERED: ONDANSETRON 4 MG/2 ML VIAL ONE (05:14)
[2024-06-01 05:16] LABS: Albumin 3.4 g/dL (3.4-5.0); Albumin/Globulin Ratio 0.8 (1.1-1.8); Anion Gap 7.5 mEq/L (5.0-15.0); Bilirubin Total 0.2 mg/dL (0.2-1.0); Globulin 4.2 g/dL (2.3-3.5); Potassium 3.5 mEq/L (3.5-5.1); Protein, Total 7.6 g/dL (6.4-8.2)
--- NOTE | 2024-06-01 05:49 | EDPHYS ---
Physician Documentation [facility] Name: Elba Wells Age: 28 yrs Sex: Female : 1995 Arrival Date: 05/31/2024 Time: 22:31 Bed 7 Private MD: ED Physician Tom Etienne HPI: 05/31 22:42 This 28 yrs old Female presents to ER via Unassigned with complaints of Pain sp4 All Over, Low Back Pain, Abdominal Pain, PT HAS H/O RHEUMATOID ARTHRITIS. 06/01 05:53 Patient with history of on chronic diffuse body aches, rheumatoid arthritis and sp4 systemic lupus presents with acute on chronic diffuse body aches headache back pain abdominal pain. Patient states this commonly happens with her rheumatologic conditions goal for acute flare. Patient takes Plaquenil, prednisone 10 mg daily, eletriptan, Ubrelvy, Eletriptan, also diazepam as needed. 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 Walker at [facility]. Patient states she started her last menstrual period yesterday. She thinks it may be contributing to her headache, migraine her diffuse bodyaches as well.. PAYMENT COLLECTOR: 07:00 Not al5 Historical: - Allergies: 05/31 22:59 Iodinated Contrast Media - IV Dye; kl - PMHx: 22:59 Anemia; Asthma; Fibromyalgia; Lupus erythematosus; Rheumatoid Arthritis; migraines kl (Rheumatoid Arthritis); - PSHx: 22:59 Adenoid excision; section; Cholecystectomy; D\T\C; Ovarian cyst removal; kl Tonsillectomy; - Immunization history:: Adult Immunizations up to date. - Infectious Disease History:: Denies. - Social history:: Smoking status: Patient denies any tobacco usage or history of. - Family history:: not pertinent. ROS: 06/01 05:53 Constitutional: Negative for fever, chills, and weight loss, positive for headache, sp4 back pain, diffuse body aches, abdominal pain, positive for feeling unwell All other systems are negative, Exam: 05:53 Constitutional: This is a well developed, well nourished patient who is awake, alert, sp4 and in no acute distress. Head/Face: Normocephalic, atraumatic. Eyes: Pupils equal round and reactive to light, extra-ocular motions intact. Lids and lashes normal. Conjunctiva and sclera are not injected. Cornea within normal limits. Periorbital areas with no swelling, redness, or edema. ENT: Nares patent. No nasal discharge, no septal abnormalities noted. Tympanic membranes are normal and external auditory canals are clear. Oropharynx with no redness, swelling, or masses, exudates, or evidence of obstruction, uvula midline. Mucous membranes moist. Neck: Trachea midline, no thyromegaly or masses palpated, and no cervical lymphadenopathy. Supple, full range of motion without nuchal rigidity, or vertebral point tenderness. Chest/axilla: Normal chest wall appearance and motion. Nontender with no deformity. No lesions are appreciated. Cardiovascular: Regular rate and rhythm with a normal S1 and S2. No gallops, murmurs, or rubs. Normal PMI, no JVD. No pulse deficits. Respiratory: Lungs have equal breath sounds bilaterally, clear to auscultation and percussion. No rales, rhonchi or wheezes noted. No increased work of breathing, no retractions or nasal flaring. Abdomen/GI: Soft, with normal bowel sounds. No distension or tympany. No guarding or rebound. No evidence of tenderness throughout. Back: No spinal tenderness. No costovertebral tenderness. Skin: Warm, dry with normal turgor. Normal color with no rashes, no lesions, and no evidence of cellulitis. MS/ Extremity: Pulses equal, no cyanosis. Neurovascular intact. Full, normal range of motion. Neuro: Awake and alert, GCS 15, oriented to person, place, time, and situation. Cranial nerves II-XII grossly intact. Motor strength 5/5 in all extremities. Sensory grossly intact. Psych: Awake, alert, with orientation to person, place and time. Behavior, mood, and affect are within normal limits Vital Signs: 05/31 22:56 BP 123 / 85; Pulse 99; Resp 18; Temp 97.8(TE); Pulse Ox 100% on R/A; Pain 10/10; kl 06/01 03:19 BP 120 / 87; Pulse 84; Resp 18; Pulse Ox 100% on R/A; al5 03:30 BP 101 / 82; Pulse 71; Resp 17; Pulse Ox 100% on R/A; al5 03:45 BP 118 / 79; Pulse 79; Resp 17; Pulse Ox 98% on R/A; al5 06:00 BP 111 / 67; Pulse 77; Resp 16; Pulse Ox 98% on R/A; al5 06:30 BP 106 / 59; Pulse 63; Resp 18; Pulse Ox 96% on R/A; al5 07:00 BP 110 / 65; Pulse 64; Resp 17; Pulse Ox 97% on R/A; al5 05/31 22:56 Pain Scale: Adult kl Demetria Coma Score: 05:53 Eye Response: spontaneous(4). Motor Response: obeys commands(6). Verbal Response: sp4 oriented(5). Total: 15. MDM: 05/31 22:45 Medical Screening Exam initiated sp4 06/01 05:57 Differential diagnosis: arthritis, strain, sciatica, contusion, Herniated disc. Data sp4 reviewed: vital signs, nurses notes, lab test result(s), electrolytes, hepatic panel. Consideration of Admission/Observation Escalation of care including admission/observation considered. ED course: Patient was managed for acute pain and acute exacerbation of rheumatoid arthritis or lupus possibly vasculitis with stress dose of Solu-Cortef 100 mg IV. Will prescribe hydrocodone 103 25 1 p.o. every 6 hours as needed 15 tablets total. Will go ahead and prescribe stress dose of prednisone 60 mg daily for 5 days. After that we will advise switching back to prednisone 10 mg p.o. daily. Will advise 5 days of bedrest and increase fluid intake. 05/31 22:42 Order name: CRP; Complete Time: 05:41 sp4 05/31 22:54 Order name: CBC with Diff; Complete Time: 05:41 sp4 05/31 22:54 Order name: CMP; Complete Time: 05:41 sp4 05/31 22:54 Order name: Lipase; Complete Time: 05:41 sp4 05/31 23:35 Order name: Test, Urine; Complete Time: 02:13 05/31 22:54 Order name: IV Saline Lock; Complete Time: 04:50 sp4 05/31 22:54 Order name: Labs collected and sent; Complete Time: 04:50 sp4 Administered Medications: 05:00 Drug: NS 0.9% IV 1000 ml IV at 1 bolus Per protocol; to be given as a bolus over 60 ha1 minutes Route: IV; Rate: 1 bolus; Site: left antecubital; 07:09 Follow up: Response: No adverse reaction; IV Status: Completed infusion; IV Intake: al5 1000ml 05:00 Drug: Solu-CORTEF IVP 100 mg IVP once Route: IVP; Site: left antecubital; ha1 06:14 Follow up: Response: No adverse reaction al5 05:00 Drug: Methocarbamol PO 1500 mg PO once Route: PO; ha1 06:14 Follow up: Response: No adverse reaction; Pain is decreased al5 05:03 Drug: diphenhydrAMINE IVP 25 mg IVP once Route: IVP; Site: left antecubital; ha1 06:14 Follow up: Response: No adverse reaction al5 05:08 Drug: morphine IVP or IV 6 mg IVP once over 4 mins Route: IVP; Infused Over: 4 mins; ha1 Site: left antecubital; 06:14 Follow up: Response: No adverse reaction; Pain is decreased al5 05:15 Drug: Ondansetron IVP 4 mg IVP once; over 2 minutes Route: IVP; Site: left antecubital; ha1 06:14 Follow up: Response: No adverse reaction al5 05:27 Not Given (Patient Refused): [id number] mg IVP once; over 1 to 2 minutes ha1 06:58 Drug: HYDROcodone-acetaminophen PO 5 mg-325 mg 2 tabs PO once Route: PO; al5 07:09 Follow up: Response: No adverse reaction; Medication administered at discharge. al5 Disposition Summary: 06/01/24 05:49 Discharge Ordered Notes: Location: Home sp4 Problem: new sp4 Symptoms: have improved sp4 Condition: Stable sp4 Diagnosis - Rheumatoid arthritis, unspecified sp4 - Systemic lupus erythematosus, unspecified sp4 - Chronic Rheumatoid Arthritis with Acute Exacerbation sp4 - Generalized pain sp4 Followup: sp4 - With: Private Physician - When: 7 - 10 days - Reason: Recheck today's complaints Discharge Instructions: - Discharge Summary Sheet sp4 - Rheumatoid Arthritis sp4 Forms: - Patient Portal Instructions sp4 Prescriptions: - Prednisone 20 mg Oral tablet - take 3 tablets ORAL route once daily for 5 days After that resume your regular sp4 Prednisone 10 mg daily; 15 tablet; Refills: 0, Product Selection Permitted Signatures: Dispatcher IActionable Sandra Marquez, RN RN kl Brittany Ruvalcaba RN RN ha1 Tom Etienne MD MD sp4 Irene Santacruz RN RN al5
--- NOTE | 2024-06-01 05:49 | ER ---
Nurse's Notes [facility] Name: Elba Wells Age: 28 yrs Sex: Female : 1995 Arrival Date: 05/31/2024 Time: 22:31 Bed 7 Private MD: Diagnosis: Rheumatoid arthritis, unspecified;Systemic lupus erythematosus, unspecified;Chronic Rheumatoid Arthritis with Acute Exacerbation ;Generalized pain Presentation: 05/31 22:56 Chief complaint: Patient states: headache and generalized body aches not improved with kl prescribed medicaitons. Coronavirus screen: Vaccine status: Patient reports receiving the 2nd dose of the covid vaccine. Ebola Screen: Patient negative for fever greater than or equal to 101.5 degrees Fahrenheit, and additional compatible Ebola Virus Disease symptoms. Initial Sepsis Screen: Does the patient meet any 2 criteria? No. Patient's initial sepsis screen is negative. Does the patient have a suspected source of infection? No. Patient's initial sepsis screen is negative. Risk Assessment: Do you want to hurt yourself or someone else? Patient reports no desire to harm self or others. 22:56 Method Of Arrival: Ambulatory kl 22:56 Acuity: CED 3 kl Triage Assessment: 23:00 General: Appears uncomfortable, well groomed, well developed, Behavior is calm, kl cooperative. Pain: Complains of pain in head generalized body aches. [employer]: 06/01 07:00 Not al5 Historical: - Allergies: 05/31 22:59 Iodinated Contrast Media - IV Dye; kl - PMHx: 22:59 Anemia; Asthma; Fibromyalgia; Lupus erythematosus; Rheumatoid Arthritis; migraines kl (Rheumatoid Arthritis); - PSHx: 22:59 Adenoid excision; section; Cholecystectomy; D\T\C; Ovarian cyst removal; kl Tonsillectomy; - Immunization history:: Adult Immunizations up to date. - Infectious Disease History:: Denies. - Social history:: Smoking status: Patient denies any tobacco usage or history of. - Family history:: not pertinent. Screenin/12 03:37 [facility] ED Fall Risk Assessment (Adult) History of falling in the last 3 months, al5 including since admission No falls in past 3 months (0 pts) Confusion or Disorientation No (0 pts) Intoxicated or Sedated No (0 pts) Impaired Gait No (0 pts) Mobility Assist Device Used No (0 pt) Altered Elimination No (0 pt) Score/Fall Risk Level 0 - 2 = Low Risk Oriented to surroundings, Maintained a safe environment, Hourly rounding (assess needs \T\ fall precautionary measures) done. Abuse screen: Denies threats or abuse. Denies injuries from another. Nutritional screening: No deficits noted. Tuberculosis screening: No symptoms or risk factors identified. Assessment: 03:37 General: Appears in no apparent distress. uncomfortable, Behavior is calm, cooperative. al5 Pain: Complains of pain in generalized. Neuro: Level of Consciousness is awake, alert, obeys commands, Oriented to person, place, time, situation. Cardiovascular: Capillary refill < 3 seconds Patient's skin is warm and dry. Respiratory: Airway is patent Respiratory effort is even, unlabored, Respiratory pattern is regular, symmetrical. GI: Abdomen is non-distended, obese, Bowel sounds present X 4 quads. Abdomen is tender to palpation X 4 quads. : No signs and/or symptoms were reported regarding the genitourinary system. EENT: No signs and/or symptoms were reported regarding the EENT system. Derm: Skin is intact, is healthy with good turgor, Skin is pink, warm \T\ dry. normal. Musculoskeletal: No signs and/or symptoms reported regarding the musculoskeletal system. 04:26 Reassessment: Patient appears in no apparent distress at this time. No changes from al5 previously documented assessment. Patient and/or family updated on plan of care and expected duration. Pain level reassessed. Patient is alert, oriented x 3, equal unlabored respirations, skin warm/dry/pink. 05:30 Reassessment: Patient appears in no apparent distress at this time. Patient and/or al5 family updated on plan of care and expected duration. Pain level reassessed. Patient is alert, oriented x 3, equal unlabored respirations, skin warm/dry/pink. Patient states feeling better. 06:10 Reassessment: discharge pending fluids. al5 07:00 Reassessment: Patient appears in no apparent distress at this time. Patient and/or al5 family updated on plan of care and expected duration. Pain level reassessed. Patient is alert, oriented x 3, equal unlabored respirations, skin warm/dry/pink. patient discharged home with significant other, prescriptions and referrals with patient. Vital Signs: 05/31 22:56 BP 123 / 85; Pulse 99; Resp 18; Temp 97.8(TE); Pulse Ox 100% on R/A; Pain 10/10; kl 06/01 03:19 BP 120 / 87; Pulse 84; Resp 18; Pulse Ox 100% on R/A; al5 03:30 BP 101 / 82; Pulse 71; Resp 17; Pulse Ox 100% on R/A; al5 03:45 BP 118 / 79; Pulse 79; Resp 17; Pulse Ox 98% on R/A; al5 06:00 BP 111 / 67; Pulse 77; Resp 16; Pulse Ox 98% on R/A; al5 06:30 BP 106 / 59; Pulse 63; Resp 18; Pulse Ox 96% on R/A; al5 07:00 BP 110 / 65; Pulse 64; Resp 17; Pulse Ox 97% on R/A; al5 05/31 22:56 Pain Scale: Adult [place] Coma Score: 05:53 Eye Response: spontaneous(4). Motor Response: obeys commands(6). Verbal Response: sp4 oriented(5). Total: 15. ED Course: 05/31 22:33 Patient arrived in ED. [id number] 22:42 Tom Etienne MD is Attending Physician. sp4 22:59 Triage completed. 06/01 03:37 Missed attempt(s): 22 gauge in right antecubital area. Bleeding controlled, band aid al5 applied, catheter tip intact. 03:37 Patient has correct armband on for positive identification. Bed in low position. Call al5 light in reach. Side rails up X2. Provided Education on: plan of care. 03:50 Irene Santacruz, RN is Primary Nurse. al5 03:51 Missed attempt(s): 24 gauge in right antecubital area. Bleeding controlled, band aid al5 applied, catheter tip intact. 04:28 No provider procedures requiring assistance completed. al5 04:49 Missed attempt(s): 22 gauge in right forearm. Bleeding controlled, band aid applied, rv1 catheter tip intact. 04:49 Missed attempt(s): 22 gauge in right upper arm. Bleeding controlled, band aid applied, rv1 catheter tip intact. 04:49 Inserted saline lock: 20 gauge in left antecubital area, using aseptic technique. Blood rv1 collected. Flushed with 10 mL NS. 04:50 CBC with Diff Sent. rv1 04:50 CMP Sent. rv1 04:50 Lipase Sent. rv1 07:10 IV discontinued, intact, bleeding controlled, No redness/swelling at site. Pressure al5 dressing applied. Administered Medications: 05:00 Drug: NS 0.9% IV 1000 ml IV at 1 bolus Per protocol; to be given as a bolus over 60 ha1 minutes Route: IV; Rate: 1 bolus; Site: left antecubital; 07:09 Follow up: Response: No adverse reaction; IV Status: Completed infusion; IV Intake: al5 1000ml 05:00 Drug: Solu-CORTEF IVP 100 mg IVP once Route: IVP; Site: left antecubital; ha1 06:14 Follow up: Response: No adverse reaction al5 05:00 Drug: Methocarbamol PO 1500 mg PO once Route: PO; ha1 06:14 Follow up: Response: No adverse reaction; Pain is decreased al5 05:03 Drug: diphenhydrAMINE IVP 25 mg IVP once Route: IVP; Site: left antecubital; ha1 06:14 Follow up: Response: No adverse reaction al5 05:08 Drug: morphine IVP or IV 6 mg IVP once over 4 mins Route: IVP; Infused Over: 4 mins; ha1 Site: left antecubital; 06:14 Follow up: Response: No adverse reaction; Pain is decreased al5 05:15 Drug: Ondansetron IVP 4 mg IVP once; over 2 minutes Route: IVP; Site: left antecubital; ha1 06:14 Follow up: Response: No adverse reaction al5 05:27 Not Given (Patient Refused): [id number] mg IVP once; over 1 to 2 minutes ha1 06:58 Drug: HYDROcodone-acetaminophen PO 5 mg-325 mg 2 tabs PO once Route: PO; al5 07:09 Follow up: Response: No adverse reaction; Medication administered at discharge. al5 Medication: 03:37 VIS not applicable for this client. al5 Intake: 07:09 IV: 1000ml; Total: 1000ml. al5 Outcome: 05:49 Discharge ordered by MD. adams 07:11 Discharged to home ambulatory, with significant other, al5 07:11 Condition: good 07:11 Instructed on discharge instructions, follow up and referral plans. medication usage, Demonstrated understanding of instructions, follow-up care, medications, Prescriptions given X 2, 07:11 Patient left the ED. al5 Signatures: Sandra Hernandez, RN RN Abby Myles [email or web address] Brittany Ruvalcaba RN RN ha1 Shy [email or web address] Tom Etienne MD MD sp4 Irene Santacruz RN RN al5
[2024-06-01] MEDS ORDERED: HYDROCODONE/APAP 5/325 MG TAB ONE ×2 (06:51→06:58)
[2024-06-01 07:15] VITALS: TEMP 97.8
[2024-06-01 07:25] VITALS: BP 110/65; O2SAT 97
== END 2024-06-01 07:11 | disposition home or self-care (01) ==
LOC: ER 22:31
DX: M06.9 Rheumatoid arthritis, unspecified (principal); M32.9 Systemic lupus erythematosus, unspecified
CPT/HCPCS: 96361; 85025; 36415; 81025; 83690; 80053; 86140; 96375; 96374; 99284; J1200; J2270; J1720; J2405; J7030; J2765

== ENCOUNTER 2024-06-18 17:10 | Emergency (ER) | payer OTHER ==
--- OUTSIDE RECORDS SUMMARY | 2024-06-18 17:23 | XMS REPORT | Continuity of Care Document ---
Author Name Unknown Address [address] [facility] [address] [place] [address] [facility] thconnect Address [address] [facility] [place] [address] Care Team Providers Care Cook Helper Name Role Phone Thais Foy Primary Care Physician [phone] BANDAR BACA Attending Clinician Unavailable LUANN DUMONT Attending Clinician Unavailable IRA SMITH Attending Clinician Unavailable Thais Foy Attending Clinician [phone] Sacha Lowe MD Attending Clinician Unavailable Doctor Unassigned, Foss Attending Clinician U Juan Rodríguez DO Attending Clinician [phone] Cari Martinez CPhT Attending Clinician Unava harsh Dumont RESORT MANAGER, Luann Attending Clinician +[phone] THAIS MARIN Attending Clinician Unavailable Ira Felix Attending Clinician +[phone] COOKIE MELGAR Attending Clinician Unavailable COOKIE MELGAR Attending Clinician Unavailable Ramón RESORT MANAGER, Cookie Mari Attending Clinician [phone] RY FORMAN Attending Clinician Unavailable Ry Forman MD Attending Clinician [phone] Dolly RESORT MANAGER, Tawnya Attending Clinician [phone] Norma electrocardiograph operator, Shandra Lucero Attending Clinician UnaLUDY Briggs Attending Clinician Unavail able Mauri [facility], Azalea Attending Clinician Unavailable Erik [facility], Mary Gudino Attending Clinician Unavail able Davidson electrocardiograph operator, Amadeo Attending Clinician Unavailable Lab, Lcc Attending Clinician Unavailable Oziel electrocardiograph operator, Domenica Attending Clinician Unavaila regina Conley RESORT MANAGER, Sandra Mari Attending Clinician + [phone] Unknown, Attending Attending Clinician Unavailab SANDRA Sharp Attending Clinician Unavailab juan j Morse CPhT, Wade Attending Clinician Unavailable Mauri [facility], Azalea Attending Clinician Unavailable Thais Foy Attending Clinician [phone] Lab, Ang - Db Attending Clinician Unavailable Ira Felix Attending Clinician [phone] Sacha Lowe MD Attending Clinician [phone] Juan Reece DO Attending Clinician [phone] Ludy Bridges MD Attending Clinician PAIGE MELISSA Attending Clinician Unavailable Paige Melissa MD Attending Clinician [phone] LANCE GILMAN Attending Clinician UnavailLance Mcneal MD Attending Clinician [phone] TAWNYA GAN Attending Clinician Unavailable TAWANA JEAN Attending Clinician Unavaila BOB Moore Attending Clinician UnavailBOB Elliott Attending Clinician Unavailmiguelito Montejo OT, Laurie Rosario Attending Clinician Unavail able Bbo Flores MD Attending Clinician [phone] BRONWYN WELLINGTON Attending Clinician Unavailable Dolly JOHNSTON Tawnya Attending Clinician +[phone] Bronwyn Wellington MD Attending Clinician [phone] PETE OWENS Attending Clinician Unavail able Visit, [facility] Nurse Attending Clinician Unava harsh [facility] Attending [facility] + JOCY MICHAEL Attending Clinician Unavailab BOGDAN Almeida Attending Clinician Unavailable Lorena Kirk MD Attending Clinician [phone] Jocy Michael DNP Attending Clinician [phone] Elieser, [facility] Attending Clinician Unavailable Juan Hernandez DO Attending Clinician [phone] Unruly Tran MD Attending Clinician +[phone] Doctor Unassigned, Foss Attending Clinician U Irene Mtz MD Attending Clinician [phone] Tawana Jean CNM Attending Clinician [phone] UNRULY TRAN Attending Clinician Unavailab JESSICA Be Attending Clinician Unavailab Jessica Be DO Attending Clinician + [phone] IRENE MARI Attending Clinician Unavailable Unknown, Attending Attending Clinician Unavailab ROMULO Luna Attending Clinician UnavailROMULO Rios Attending Clinician Unavailmarlene Buck, [facility] Attending Clinician UnavailRomulo Rios MD Attending Clinician [phone] CARLITO MORAN Attending Clinician Unavailable Carlito Moran MD Attending Clinician [phone] [facility] Resident Attending Clinician U LORENA Curry Attending Clinician Unavailable Albino ALEXANDRE, Shy Lucero Attending Clinician [phone] Bandar Baca MD Attending Clinician [phone] Jose Craig MD Attending Clinician [phone] Pcp-Lab Attending Clinician Unavailable Pgy2 Attending Clinician Unavailable Alissa Leon MD Attending Clinician [phone] KEVIN PELLETIER Attending Clinician UnavailKEVIN Yu Attending Clinician Unavailmarlene pizarro Trimester, [facility]st Attending Clinician Unavailable GAURAV JOHN Attending Clinician Unavailable Gaurav John MD Attending Clinician [phone] DEB BENAVIDEZ Attending Clinician Unavailab Deb Landa DO Attending Clinician +[phone] Mariajose Ramsey MD Attending Clinician +[phone] MARIAJOSE RAMSEY Attending Clinician Unavailable Clary Perez Attending Clinician +[phone] Ese Puga RN Attending Clinician UnavailSevero Burch MD Attending Clinicia n [facility] Attending Clinician Unavailable WILBUR WILSON Attending Clinician Unavailable WILBUR WILSON Attending Clinician Unavailable Lab, [facility] Attending Clinician Unavailable Wilbur Wilson MD Attending Clinician [phone] 1, [facility] Attending Clinician Unavailab Saad Bynum Attending Clinician Unavailable Pcp, Patient Does Not Have A Attending Clinician Karon Wesley Attending Clinician [phone] SANDHYA ARAYA Attending Clinician Unavailable SANDHYA ARAYA Attending Clinician Unavailable Gillian Reno MD Attending Clinician + [phone] Winifred James NP Attending Clinician +[phone] Juan Torres MD Attending Clinician +[phone] ARIANA CASTRO Attending Clinician Unavailable Ariana Leigh Attending Clinician [phone] Lab, [facility] Attending Clinician Unavailable Provider, [facility] Temp Attending Clinician Sharon WILBERT Evans Attending Clinician Unavailab CM Beckham Attending Clinician Unavailable WINIFRED JAMES Attending Clinician Unavailable SULEIMAN LOERA Attending Clinician Unavailable Suleiman Connell Attending Clinician [phone] [facility], LOUISE Piedra Attending Clinician Unavailable Case PRABHAKARP, Wilbert Jaffe Attending Clinician + [phone] [facility], Louise Piedra Attending Clinician +[phone] Sydnie RESORT MANAGER-CJamie Attending Clinician [phone] INOCENCIO Attending Clinician Unavailable JAMIE WALL Attending Clinician UnavailJAMIE López Attending Clinician UnavailSam John Attending Clinician +[phone] Lara Atkinson RN Attending Clinician Unavailable Juan Marshall DO Attending Clinician [phone] Radha Hawkins MD Attending Clinician +[phone] RADHA HAWKINS Attending Clinician Unavailmiguelito CHASE, Sam REAL Attending Clinician Unavailable Anil JOHNSTON, Luisa Jaffe Attending Clinician [phone] LUISA MA Attending Clinician Unavailable Jessica Bob MD Attending Clinician +[phone] JESSICA BOB Attending Clinician Unavailable MANAN PÉREZ III Attending Clinician Unavaila Manan Fernandes Attending Clinician +[phone] BANDAR BACA Admitting Clinician Unavailable RY FORMAN Admitting Clinician Unavailable Ry Forman MD Admitting Clinician +[phone] PAIGE MELISSA Admitting Clinician Unavailable JESSICA TORRES Admitting Clinician Unavailab CARLITO Lewis Admitting Clinician Unavailable LORENA KIRK Admitting Clinician Unavailable Lorena Kirk MD Admitting Clinician +[phone] GAURAV JOHN Admitting Clinician Unavailable DEB BENAVIDEZ Admitting Clinician Unavailab MARIAJOSE James Admitting Clinician Unavailable Mariajose Ramsey MD Admitting Clinician [phone] Physician, No Primary or Family Admitting Clinic win Unavailable JUAN TORRES Admitting Clinician Unavailable Juan Torres MD Admitting Clinician +[phone] ARIANA CASTRO Admitting Clinician Unavailable INOCENCIO Admitting Clinician Unavailable RADHA HAWKINS Admitting Clinician UnavailSam Poe Admitting Clinician Unavailable LUISA MA Admitting Clinician Unavailable JESSICA BOB Admitting Clinician Unavailable MANAN PÉREZ III Admitting Clinician Unavailmarlene pizarro Payers Payer Name Policy Type Policy Number Effective Date Expirati on Date Source [facility] [id number] 2022 00:00:00 MED[place]ID [place] [id number] 2022 00:00:00 MEDICAID PENDING PENDING 2022 00:00:00 [facility] [id number] 2020 00:00:00 Problems Condition Name Condition Details Condition Category Status Onset Date Resolution Date Last Treatment Date Treating Clinician Comments Source Obesity (BMI 30-39.9) Obesity (BMI 30-39.9) Disease Active 2023-06 00:00: 00 [facility] Change in bowel habits Change in bowel habits Disease Active 03-01 00:00: 00 [facility] Diarrhea, unspecifie d type Diarrhea, unspecifie d type Disease Active 03-01 00:00: 00 [facility] Blood in stool Blood in stool Disease Active 03-01 00:00: 00 [facility] Epigastric pain Epigastric pain Disease Active 03-01 00:00: 00 [facility] Dysphagia, unspecifie d type Dysphagia, unspecifie d type Disease Active 03-01 00:00: 00 [facility] Gastroesop hageal reflux disease, unspecifie d whether esophagiti s present Gastroesop hageal reflux disease, unspecifie d whether esophagiti s present Disease Active 03-01 00:00: 00 [facility] NSAID long-term use NSAID long-term use Disease Active 03-01 00:00: 00 [facility] Early satiety Early satiety Disease Active 03-01 00:00: 00 [facility] Flatulence , eructation , and gas pain Flatulence , eructation , and gas pain Disease Active 03-01 00:00: 00 [facility] NSAID long-term use NSAID long-term use Disease Active 9-11 00:00: 00 [facility] Intractabl e chronic migraine with aura with status migrainosu s Intractabl e chronic migraine with aura with status migrainosu s Disease Active 9-05 00:00: 00 [facility] NADYA (obstructi ve sleep apnea) NADYA (obstructi ve sleep apnea) Disease Active 2022-06 2-31 00:00: 00 [facility] Status migrainosu s Status migrainosu s Disease Active 2022-06 1-10 00:00: 00 [facility] Status post hysterosco py Status post hysterosco py Disease Active 2022-06 1-06 00:00: 00 [facility] Observed seizure-li ke activity Observed seizure-li ke activity Disease Active 2022-06 1 00:00: 00 [facility] Positive LAST (antinucle ar antibody) Positive LAST (antinucle ar antibody) Disease Active 2022-06 0-20 00:00: 00 [facility] 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 Disease Active 2022-06 0-20 00:00: 00 [facility] Abnormal uterine bleeding Abnormal uterine bleeding Disease Active 2022-06 0-16 00:00: 00 [facility] Multiparit y Multiparit y Disease Active 6-23 00:00: 00 [facility] History of arthritis History of arthritis Disease Active 2-21 00:00: 00 [facility] Fibrocysti c breast disease (FCBD), unspecifie d laterality Fibrocysti c breast disease (FCBD), unspecifie d laterality Disease Active 2021-06 0-14 00:00: 00 [facility] Overweight (BMI 25.0-29.9) Overweight (BMI 25.0-29.9) Disease Active 2- 00:00: 00 [facility] Overweight Overweight Disease Active 2- 00:00: 00 [facility] Anemia of mother in , antepartum Anemia of mother in , antepartum Disease Active 3-02 00:00: 00 [facility] Depression , unspecifie d depression type Depression , unspecifie d depression type Disease Active 8- 00:00: 00 [facility] UTI (urinary tract infection) during UTI (urinary tract infection) during Disease Resolve d 6-24 00:00: 00 2023-07-01 00:00:00 2023-07-01 15:40:26 [facility] Obesity in Obesity in Disease Resolve d 6- 00:00: 00 2023-07-01 00:00:00 2023-07-01 15:40:29 [facility] Previous delivery affecting , antepartum Previous delivery affecting , antepartum Disease Resolve d 6 00:00: 00 2023-07-01 00:00:00 2023-07-01 15:40:34 Overview: Formattin g of this note might be different from the original. x4 will need follow up usg at 28-30week s for placenta [facility] Spontaneou s Spontaneou s Disease Resolve d 7-21 00:00: 00 2023-05-11 00:00:00 2023-05-11 10:34:39 [facility] Molar Molar Disease Resolve d 7-17 00:00: 00 2023-05-11 00:00:00 2023-05-11 10:34:35 [facility] Susceptibl e to varicella (non-immun e), currently Susceptibl e to varicella (non-immun e), currently Disease Resolve d 6- 00:00: 00 2023-05-11 00:00:00 2023-05-11 10:34:30 Overview: Formattin g of this note might be different from the original. Address pp [facility] Supervisio n of high-risk Supervisio n of high-risk Disease Resolve d 6-23 00:00: 00 2023-05-11 00:00:00 2023-05-11 10:34:25 [facility] Ovarian cyst, left Ovarian cyst, left Disease Resolve d 2022-0 5-04 00:00: 00 2023-05-11 00:00:00 2023-05-11 10:34:19 [facility] Miscarriag e Miscarriag e Disease Resolve d 2022-0 4-08 00:00: 00 2022-10-22 00:00:00 2022-10-22 16:41:49 [facility] Maternal varicella, non-immune Maternal varicella, non-immune Disease Resolve d 2022-0 2-23 00:00: 00 2022-10-22 00:00:00 2022-10-22 15:24:37 [facility] Heartburn in Heartburn in Disease Resolve d 0 2-21 00:00: 00 2022-10-22 00:00:00 2022-10-22 15:24:32 [facility] History of gestationa l hypertensi on History of gestationa l hypertensi on Disease Resolve d 0 2-21 00:00: 00 2022-10-22 00:00:00 2022-10-22 15:24:34 [facility] Hx of maternal blood transfusio n, currently Hx of maternal blood transfusio n, currently Disease Resolve d 0 2-21 00:00: 00 2022-10-22 00:00:00 2022-10-22 15:24:35 [facility] Nausea and vomiting, unspecifie d vomiting type Nausea and vomiting, unspecifie d vomiting type Disease Active 0 2-21 00:00: 00 2022-10-22 00:00:00 2022-10-22 15:24:38 [facility] Nausea and vomiting during Nausea and vomiting during Disease Resolve d 0 2-21 00:00: 00 2022-10-22 00:00:00 2022-10-22 15:24:38 [facility] Previous delivery affecting , antepartum Previous delivery affecting , antepartum Disease Resolve d 2017-0 2-01 00:00: 00 2022-10-22 00:00:00 2022-10-22 16:41:47 [facility] Obesity affecting Obesity affecting Disease Resolve d 2017-0 2-01 00:00: 00 2022-10-22 00:00:00 2022-10-22 15:24:40 [facility] Anemia of mother in , antepartum Anemia of mother in , antepartum Disease Resolve d 2016-0 3-02 00:00: 00 2022-10-22 00:00:00 2022-10-22 15:24:30 [facility] Anxiety and depression affecting Anxiety and depression affecting Disease Resolve d 2015- 1-23 00:00: 00 2022-10-22 00:00:00 2022-10-22 16:41:52 [facility] Chronic anemia Chronic anemia Disease Resolve d 0 2-21 00:00: 00 2022-09-23 00:00:00 2022-09-23 20:28:40 [facility] Dysmenorrh ea Dysmenorrh ea Disease Resolve d 2021-1 0-29 00:00: 00 2022-08-11 00:00:00 2022-08-11 16:01:02 [facility] History of breast pain History of breast pain Disease Resolve d 2021-1 0-29 00:00: 00 2022-08-11 00:00:00 2022-08-11 16:01:11 [facility] Breakthrou gh bleeding on contracept debra patch Breakthrou gh bleeding on contracept debra patch Disease Resolve d 2021-1 0-29 00:00: 00 2022-08-11 00:00:00 2022-08-11 16:01:01 [facility] Irregular menstrual cycle Irregular menstrual cycle Disease Resolve d 2021- 0-14 00:00: 00 2022-08-11 00:00:00 2022-08-11 16:01:09 [facility] Encounter for surveillan ce of transderma l patch hormonal contracept debra device Encounter for surveillan ce of transderma l patch hormonal contracept debra device Disease Resolve d 2021-06 0-13 00:00: 00 2022-08-11 00:00:00 2022-08-11 16:00:08 [facility] Need for HPV vaccinatio n Need for HPV vaccinatio n Disease Resolve d 1-07 00:00: 00 2022-08-11 00:00:00 2022-08-11 16:01:12 [facility] Blood transfusio n affecting Blood transfusio n affecting Disease Resolve d 3-01 00:00: 00 2022-08-11 00:00:00 2022-08-11 20:53:05 [facility] Anemia affecting in third trimester Anemia affecting in third trimester Disease Resolve d 2-23 00:00: 00 2022-08-11 00:00:00 2022-08-11 20:52:54 [facility] Pain of both breasts Pain of both breasts Disease Resolve d 2021-06 0-14 00:00: 00 2022-04-18 00:00:00 2022-04-18 12:17:21 [facility] Screening for malignant neoplasm of the cervix Screening for malignant neoplasm of the cervix Disease Resolve d 2021-06 0-13 00:00: 00 2022-04-18 00:00:00 2022-04-18 12:17:39 [facility] Itching of vagina Itching of vagina Disease Resolve d 0 5-24 00:00: 00 2022-04-18 00:00:00 2022-04-18 12:17:14 [facility] Dysuria Dysuria Disease Resolve d 5-24 00:00: 00 2022-04-18 00:00:00 2022-04-18 12:17:37 [facility] Class 2 obesity with body mass index (BMI) of 35.0 to 35.9 in adult, unspecifie d obesity type, unspecifie d whether serious comorbidit y present Class 2 obesity with body mass index (BMI) of 35.0 to 35.9 in adult, unspecifie d obesity type, unspecifie d whether serious comorbidit y present Disease Resolve d 1-07 00:00: 00 2022-04-18 00:00:00 2022-04-18 12:17:34 [facility] Screening examinatio n for STD (sexually transmitte d disease) Screening examinatio n for STD (sexually transmitte d disease) Disease Resolve d 2017-06 1-06 00:00: 00 2022-04-18 00:00:00 2022-04-18 12:17:28 [facility] BMI 35.0-35.9, adult BMI 35.0-35.9, adult Disease Resolve d 4-06 00:00: 00 2022-04-18 00:00:00 2022-04-18 12:17:24 [facility] Routine follow-up Routine follow-up Disease Resolve d 2017-06 0 00:00: 00 2018-04-26 00:00:00 2018-04-26 16:09:28 [facility] 39 weeks gestation of 39 weeks gestation of Disease Resolve d 9-17 00:00: 00 2018-04-01 00:00:00 2018-04-01 13:20:03 [facility] Group B streptococ kavon infection during Group B streptococ kavon infection during Disease Resolve d 9-05 00:00: 00 2018-04-01 00:00:00 2018-04-01 13:20:06 [facility] Supervisio n of high risk , antepartum Supervisio n of high risk , antepartum Disease Resolve d -17 00:00: 00 2018-04-01 00:00:00 2018-04-01 13:20:11 [facility] Back pain with right-side d sciatica Back pain with right-side d sciatica Disease Resolve d 7-03 00:00: 00 2018-04-01 00:00:00 2018-04-01 13:20:04 [facility] Urinary tract infection without hematuria, site unspecifie d Urinary tract infection without hematuria, site unspecifie d Disease Resolve d 2018-0 2-21 00:00: 00 2018-04-01 00:00:00 2018-04-01 13:20:02 [facility] Multiparit y Multiparit y Disease Resolve d 2-01 00:00: 00 2018-04-01 00:00:00 2018-04-01 13:20:08 [facility] H/O miscarriag e, currently H/O miscarriag e, currently Disease Resolve d 2-01 00:00: 00 2018-04-01 00:00:00 2018-04-01 13:20:07 [facility] Hypertensi on Hypertensi on Disease Resolve d 2018-03-08 00:00:00 2018-03-08 07:51:04 [facility] Back pain affecting , antepartum Back pain affecting , antepartum Disease Resolve d 6- 00:00: 00 2018-02-18 00:00:00 2018-02-18 10:57:31 [facility] History of 3 sections History of 3 sections Disease Resolve d 7-03 00:00: 00 2018-01-18 00:00:00 2018-01-18 14:54:25 [facility] Supervisio n of high risk in second trimester Supervisio n of high risk in second trimester Disease Resolve d 4-09 00:00: 00 2018-01-04 00:00:00 2018-01-04 10:26:26 [facility] Feeling light headed Feeling light headed Disease Resolve d 3-21 00:00: 00 2017-11-23 00:00:00 2017-11-23 15:29:15 [facility] Circumvall ate placenta during in third trimester, antepartum Circumvall ate placenta during in third trimester, antepartum Disease Resolve d 2-02 00:00: 00 2017-11-23 00:00:00 2017-11-23 15:29:06 [facility] Subchorion ic hematoma, third trimester, fetus 1 Subchorion ic hematoma, third trimester, fetus 1 Disease Resolve d 2017-0 2-02 00:00: 00 2017-11-23 00:00:00 2017-11-23 15:29:07 [facility] Supervisio n of high risk , antepartum , first trimester Supervisio n of high risk , antepartum , first trimester Disease Resolve d 0 3-13 00:00: 00 2017-09-27 00:00:00 2017-09-27 14:42:24 [facility] Supervisio n of high-risk of young primigravi da Supervisio n of high-risk of young primigravi da Disease Resolve d 2- 00:00: 00 2017-08-31 00:00:00 2017-08-31 07:52:24 [facility] Previous delivery affecting , antepartum Previous delivery affecting , antepartum Disease Resolve d 4-06 00:00: 00 2017-07-22 00:00:00 2017-07-22 11:18:09 [facility] Anxiety during in third trimester, antepartum Anxiety during in third trimester, antepartum Disease Resolve d 2-21 00:00: 00 2017-07-22 00:00:00 2017-07-22 11:18:05 [facility] High-risk , third trimester High-risk , third trimester Disease Resolve d 2- 00:00: 00 2017-07-22 00:00:00 2017-07-22 11:18:16 [facility] Anemia complicati ng , third trimester Anemia complicati ng , third trimester Disease Resolve d 0 1-19 00:00: 00 2017-07-22 00:00:00 2017-07-22 11:17:53 [facility] Left sided sciatica Left sided sciatica Disease Resolve d 2015-06 2- 00:00: 00 2017-07-22 00:00:00 2017-07-22 11:18:01 [facility] Numbness of left foot Numbness of left foot Disease Resolve d 2015-06- 00:00: 00 2017-07-22 00:00:00 2017-07-22 11:17:53 [facility] Vaginal bleeding in , second trimester Vaginal bleeding in , second trimester Disease Resolve d 2015-06 2- 00:00: 00 2017-07-22 00:00:00 2017-07-22 11:17:59 [facility] E. coli UTI E. coli UTI Disease Resolve d 2015-06 00:00: 00 2017-07-22 00:00:00 2017-07-22 11:17:35 [facility] UTI in , second trimester UTI in , second trimester Disease Resolve d 2015-06 00:00: 00 2017-07-22 00:00:00 2017-07-22 11:17:41 [facility] Echogenic bowel of fetus on ultrasound Echogenic bowel of fetus on ultrasound Disease Resolve d 2015-06 1- 00:00: 00 2017-07-22 00:00:00 2017-07-22 11:17:23 [facility] Persistent cough Persistent cough Disease Resolve d 2015-06 00:00: 00 2017-07-22 00:00:00 2017-07-22 11:17:26 [facility] Incomplete ABx Course Incomplete ABx Course Disease Resolve d 9-16 00:00: 00 2017-07-22 00:00:00 2017-07-22 11:17:20 [facility] GBS carrier GBS carrier Disease Resolve d 8-24 00:00: 00 2017-07-22 00:00:00 2017-07-22 11:17:16 [facility] UTI in , first trimester UTI in , first trimester Disease Resolve d 8-24 00:00: 00 2017-07-22 00:00:00 2017-07-22 11:17:31 [facility] Nausea and vomiting during prior to 22 weeks gestation Nausea and vomiting during prior to 22 weeks gestation Disease Resolve d 8-23 00:00: 00 2017-07-22 00:00:00 2017-07-22 11:17:44 [facility] Vaginal bleeding in , first trimester Vaginal bleeding in , first trimester Disease Resolve d 8- 00:00: 00 2017-07-22 00:00:00 2017-07-22 11:17:38 [facility] Threatened miscarriag e in early Threatened miscarriag e in early Disease Resolve d 02-10 00:00: 00 2017-07-22 00:00:00 2017-07-22 11:17:29 [facility] Previous section complicati ng Previous section complicati ng Disease Resolve d 02-10 00:00: 00 2017-07-22 00:00:00 2017-07-22 11:17:13 [facility] History of dilatation and curettage History of dilatation and curettage Disease Resolve d 02-10 00:00: 00 2017-07-22 00:00:00 2017-07-22 11:17:08 [facility] [facility] Anxiety and depression Anxiety and depression Disease Resolve d 02-10 00:00: 00 2017-07-22 00:00:00 2017-07-22 11:17:52 [facility] Nausea and vomiting during prior to 22 weeks gestation Nausea and vomiting during prior to 22 weeks gestation Disease Resolve d 02-10 00:00: 00 2017-07-22 00:00:00 2017-07-22 11:17:44 [facility] 33 weeks gestation of 33 weeks gestation of Disease Resolve d - 00:00: 00 2016-08-25 00:00:00 2016-08-25 14:26:16 [facility] 32 weeks gestation of 32 weeks gestation of Disease Resolve d 08-13 00:00: 00 2016-08-25 00:00:00 2016-08-25 14:26:12 [facility] Anxiety during in second trimester, antepartum Anxiety during in second trimester, antepartum Disease Resolve d 2015-06 00:00: 00 2016-08-11 00:00:00 2016-08-11 09:11:24 [facility] Subchorion ic hematoma in second trimester Subchorion ic hematoma in second trimester Disease Resolve d 2015-06 00:00: 00 2016-08-11 00:00:00 2016-08-11 09:10:51 [facility] Vaginal bleeding Vaginal bleeding Disease Resolve d 2015-06 026 00:00: 00 2016-08-11 00:00:00 2016-08-11 09:10:25 [facility] High-risk , second trimester High-risk , second trimester Disease Resolve d 2015-06 00:00: 00 2016-07-23 00:00:00 2016-07-23 16:28:31 [facility] Circumvall ate placenta during in second trimester, antepartum Circumvall ate placenta during in second trimester, antepartum Disease Resolve d 2015-06 00:00: 00 2016-07-23 00:00:00 2016-07-23 16:27:27 [facility] Subchorion ic hematoma in first trimester Subchorion ic hematoma in first trimester Disease Resolve d 02-10 00:00: 00 2016-07-23 00:00:00 2016-07-23 16:28:07 [facility] Supervisio n of high-risk , first trimester Supervisio n of high-risk , first trimester Disease Resolve d 02-10 00:00: 00 2016-05-13 00:00:00 2016-05-13 15:40:56 [facility] Anxiety during in first trimester, antepartum Anxiety during in first trimester, antepartum Disease Resolve d 02-10 00:00: 00 2016-05-13 00:00:00 2016-05-13 15:41:37 [facility] Allergies, Adverse Reactions, Alerts Allergy Name Allergy Type Status Severity Reaction(s) Onset Date Inactive Date Treating Clinician Comments Source IODINATE D CONTRAST MEDIA Drug Class Active Anaphylaxis 01-19 00:00: 00 [facility] Iodinate d Contrast Media Propensi ty to adverse reaction s Active Anaphylaxis 01-19 00:00: 00 [facility] No Known Allergie s DA Active U 6- 00:00: 00 [facility] Iodine Drug Allergy Active Swelling 2- 00:00: 00 [facility] Iodine Propensi ty to adverse reaction s Active Swelling 07-22 00:00: 00 [facility] IODINE DRUG INGREDI Active High Anaphylaxis 07-22 00:00: 00 [facility] Social History Social Habit Start Date Stop Date Quantity Comments Source ASSERTION 2022-11-09 00:00:00 [facility] Alcoholic beverage intake 2024-05-10 00:00:00 2024-05-10 00:00:00 Ex-drinker (finding) [facility] Alcohol intake 2023-10-20 00:00:00 2023-10-20 00:00:00 Ex-drinker (finding) [facility] History of Social function 2023-04-26 00:00:00 2023-04-26 00:00:00 [facility] Tobacco use and exposure 2023-01-09 00:00:00 2023-01-09 00:00:00 Smokeless tobacco non-user [facility] Exposure to SARS-CoV-2 (event) 2022-12-01 00:00:00 2022-12-11 09:58:00 Not sure [facility] History SDOH Alcohol Frequency 2020-06-27 00:00:00 2020-06-27 00:00:00 3 [facility] History SDOH Alcohol Std Drinks 2020-06-27 00:00:00 2020-06-27 00:00:00 99 [facility] History SDOH Alcohol Binge 2020-06-27 00:00:00 2020-06-27 00:00:00 99 [facility] Alcohol Comment 2020-06-27 00:00:00 2020-06-27 00:00:00 on occassion, liquor and beer on occassions. [facility] Sex assigned at 1995 00:00:00 1995 00:00:00 [facility] Smoking Status Start Date Stop Date Source Never smoked tobacco [facility] Medications Ordered Medication Name Filled Medication Name Start Date Stop Date Current Medication? Ordering Clinician Indication Dosage Frequency Signature (SIG) Comments Components Source omeprazole 40 mg capsule 2023-06 00:00: 00 Yes [id number] 40mg Take 1 capsule by mouth in the morning and 1 capsule in the evening. [facility] DIAZEPAM 5 mg tablet 2023-06 00:00: 00 Yes [id number] 5mg TAKE 1 TABLET BY MOUTH 2 (TWO) TIMES DAILY NEEDED (SEVERE MIGRAINE). NO MORE THAN 2 DAYS A WEEK, 8 DAYS A MONTH. DO NOT TAKE WITH BUTALBITAL OR OTHER DIETETICS TEACHER DEPRESSANT S [facility] ondansetron (ZOFRAN (PF)) injection 4 mg 2023-06 21:30: 00 05-09 20:41 :00 No 4mg 4 mg, Slow IV Push, ONCE, On Wed05/09/24 at 1530, For 1 dose, PACU, Please give medication over 2-5 minutes. [facility] simethicone (GAS RELIEF (SIMETHICON E)) 40 mg/0.6 mL drops 2023-06 19:41: 00 05-09 22:50 :59 No PRN, Starting on Wed05/09/24 at 1341, Until Wed05/09/24 at 1650, Routine, Intra-op [facility] eletriptan 40 mg tablet 2023-06 00:00: 00 Yes [id number] 40mg Take 1 tablet by mouth SEE-INSTRU CTIONS. Take 1 tab at onset of migraine. May repeat in 2 hours if necessary. No more than 9 days per month [facility] clostridium botulinum toxin (BOTOX) injection 155 Units 2023-06 15:30: 00 04-13 14:43 :00 No [id number] 155U 155 Units, Intramuscu lar, ONCE, 1 dose, On Wed04/13/24 at 1030, Routine, 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 approving Restricted medication : IRA SMITH [facility] scopolamine transdermal 1 mg over 3 days patch 2023-06 00:00: 00 Yes [id number] 1.5mg Apply 1 Patch to area(s) every 72 (seventy-t wo) hours. For motion sickness, cruise ship [facility] diazePAM 5 mg tablet 2023-06 00:00: 00 05-11 00:00 :00 No [id number] 5mg Take 1 tablet by mouth 2 (two) times daily as needed (severe migraine). No more than 2 days a week, 8 days a month. Do not take with butalbital or other DIETETICS TEACHER depressant s [facility] peg-electro lyte soln 236-22.74-6 .74 -5.86 gram solution 03-01 00:00: 05-09 00:00 :00 No [id number] Take as directed before colonoscop y [facility] butalbital- acetaminoph en-caff 50-325-40 mg tablet 02-23 00:00: 00 Yes [id number] 1{tbl} Take 1 tablet by mouth every 4 (four) hours as needed (severe migraine). Use sparingly no more than 9 days per month [facility] methocarbam oL 750 mg tablet 02-23 00:00: 00 Yes [id number] 750mg Take 1 tablet by mouth 3 (three) times daily as needed for Other (muscle spasms). [facility] ketorolac 10 mg tablet 02-23 00:00: 00 Yes [id number] 10mg Take 1 tablet by mouth every 6 (six) hours as needed (migraine) . [facility] ubrogepant (UBRELVY) 100 mg tablet 02-23 00:00: 00 Yes [id number] 100mg Take 1 tablet by mouth at onset of migraine symptoms. May repeat in 2 hours if needed. Max of 2 tablets per 24 hours. [facility] proMETHazin e 25 mg tablet 02-23 00:00: 00 Yes [id number] 25mg Take 1 tablet by mouth every 4 (four) hours as needed for N/V alternatin g with Ondansetro n. [facility] diazePAM 2 mg tablet 02-23 00:00: 00 04-13 00:00 :00 No [id number] 2mg Take 1 tablet by mouth 2 (two) times daily as needed (severe migraine). No more than 2 days a week, 8 days a month. Do not take with butalbital or other DIETETICS TEACHER depressant s [facility] ciprofloxac in-dexameth asone 0.3-0.1 % otic drops 02-16 00:00: 00 02-24 04:59 :00 No [id number] 4[drp] Place 4 Drops in left ear in the morning and 4 Drops in the evening. Do all this for 7 days. [facility] bromphenira mine-pseudo ephedrine-D M 2-30-10 mg/5 mL syrup 02-16 00:00: 00 02-22 04:59 :00 No [id number] 5mL Take 5 mL by mouth 4 (four) times daily as needed for Congestion /Allergies for up to 5 days. [facility] atogepant (QULIPTA) 60 mg Tab tablet 01-17 00:00: 00 Yes [id number] 60mg Take 1 tablet by mouth in the morning. [facility] ALPRAZolam (XANAX) 0.5 mg tablet 11-24 00:00: 00 11-25 04:59 :00 No [id number] .5mg Take 1 tablet by mouth once now for 1 dose. [facility] azelastine 137 mcg (0.1 %) nasal spray 11-16 00:00: 00 Yes [id number] 1{spray } USE 1 SPRAY IN EACH NOSTRIL IN THE MORNING AND 1 SPRAY IN THE EVENING DIRECTED [facility] ondansetron (ZOFRAN-ODT ) disintegrat ing tablet 8 mg 11-15 18:30: 00 11-15 17:43 :00 No [id number] 8mg 8 mg, Oral, ONCE, 1 dose, On Wed11/16/23 at 1330, Routine [facility] clostridium botulinum toxin (BOTOX) injection 155 Units 11-15 18:30: 00 11-15 17:44 :00 No [id number] 155U 155 Units, Intramuscu lar, ONCE, 1 dose, On Wed11/16/23 at 1330, Routine, 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 approving Restricted medication : IRA SMITH [facility] lidocaine 5 % (700 mg/patch) patch 11-15 00:00: 00 Yes [id number] 1{patch } Apply 1 Patch to area(s) in the morning and 1 Patch in the evening. [facility] ondansetron 8 mg disintegrat ing tablet 11-15 00:00: 00 Yes [id number] 8mg Take 1 tablet by mouth every 8 (eight) hours as needed for Nausea and Vomiting (N/V) (or migraine). [facility] ondansetron 4 mg disintegrat ing tablet 11-15 00:00: 00 11-17 00:00 :00 No [id number] 4mg Take 1 tablet by mouth every 8 (eight) hours as needed for Nausea and Vomiting (N/V). [facility] azelastine 137 mcg (0.1 %) nasal spray 10-31 00:00: 00 11-16 00:00 :00 No [id number] 1{spray } USE 1 SPRAY IN EACH NOSTRIL IN THE MORNING AND 1 SPRAY IN THE EVENING DIRECTED [facility] HYDROcodone -acetaminop hen (NORCO) 10-325 mg tablet 1 tablet 10-26 05:15: 00 10-26 04:19 :00 No 1{tbl} 1 tablet, Oral, ONCE NOW, 1 dose, On Wed10/27/23 at 0015, Routine [facility] acetaminoph en-codeine 300-30 mg tablet 10-26 00:00: 00 11-03 04:59 :00 No [id number] 1{tbl} Take 1 tablet by mouth every 4 (four) hours as needed for Pain (scale 7-10) for up to 7 days. Indication s: acute pain [facility] minoxidiL 2.5 mg tablet 10-19 00:00: 00 Yes [id number] 2.5mg Take 1 tablet by mouth in the morning. [facility] hydroxychlo roquine (PLAQUENIL) 200 mg tablet 408 00:00: 00 Yes [id number] 300mg Take 1.5 tablets by mouth in the morning. [facility] azelastine 137 mcg (0.1 %) nasal spray 3 00:00: 00 10-31 00:00 :00 No [id number] 1{spray } USE 1 SPRAY IN EACH NOSTRIL IN THE MORNING AND 1 SPRAY IN THE EVENING DIRECTED [facility] DULoxetine 30 mg capsule 09-14 00:00: 00 Yes [id number] 30mg Take 1 capsule by mouth in the morning and 1 capsule in the evening. First week, take only 1 capsule in morning, and then twice daily thereafter . [facility] minoxidiL 2.5 mg tablet 09-14 00:00: 00 10-19 00:00 :00 No [id number] 2.5mg Take 1 tablet by mouth in the morning. [facility] methocarbam oL 750 mg tablet 3-11 00:00: 00 02-23 00:00 :00 No 750mg Take 1 tablet by mouth 3 (three) times daily as needed for Other (muscle spasms). [facility] butalbital- acetaminoph en-caff 50-325-40 mg tablet 08-25 00:00: 00 02-23 00:00 :00 No [id number] 1{tbl} Take 1 tablet by mouth every 4 (four) hours as needed (severe migraine). Use sparingly no more than 9 days per month [facility] nortriptyli ne 50 mg capsule 08-16 00:00: 00 Yes [id number] 1-2 po QHS [facility] sumatriptan (IMITREX) 100 mg tablet 08-16 00:00: 00 Yes [id number] 100mg Take 1 tablet by mouth as needed for Migraine. May repeat in 2h if headache remains [facility] ondansetron 4 mg disintegrat ing tablet 08-16 00:00: 00 11-15 00:00 :00 No [id number] 4mg Take 1 tablet by mouth every 8 (eight) hours as needed for Nausea and Vomiting (N/V). [facility] butalbital- acetaminoph en-caff 50-325-40 mg tablet 08-16 00:00: 00 08-25 00:00 :00 No [id number] 1{tbl} Take 1 tablet by mouth every 4 (four) hours as needed (severe migraine). Use sparingly no more than 9 days per month [facility] azelastine 137 mcg (0.1 %) nasal spray 07-21 00:00: 00 09-15 00:00 :00 No [id number] 1{spray } USE 1 SPRAY IN EACH NOSTRIL IN THE MORNING AND 1 SPRAY IN THE EVENING DIRECTED [facility] gabapentin 300 mg capsule - 00:00: 00 Yes [id number] 300mg Take 1 capsule by mouth 3 (three) times daily as needed (pain). [facility] methocarbam oL 750 mg tablet -16 00:00: 00 08-29 00:00 :00 No 750mg Take 1 tablet by mouth 3 (three) times daily as needed for Other (muscle spasms). [facility] Nitrofurant oin&Nit. Macrocryst (MACROBID) 100 mg capsule -15 00:00: 00 07-16 05:59 :00 No [id number] 100mg Take 1 capsule by mouth in the morning and 1 capsule in the evening. Do all this for 10 days. [facility] metroNIDAZO LE 500 mg tablet -12 00:00: 00 07-03 05:59 :00 No [id number] 2000mg Take 4 tablets by mouth once now for 1 dose. [facility] HYDROcodone -acetaminop hen 5-325 mg tablet - 00:00: 00 07-01 05:59 :00 No [id number] 1{tbl} Take 1 tablet by mouth every 6 (six) hours as needed for Pain (scale 7-10) for up to 7 days. Indication s: acute pain [facility] ondansetron (ZOFRAN-ODT ) disintegrat ing tablet 4 mg 06-22 01:45: 00 06-22 00:58 :00 No 4mg 4 mg, Oral, ONCE, 1 dose, On Wed06/21/23 at 1945, [facility] HYDRO[facility]one -acetaminop hen (NORCO 5) 5-325 mg tablet 1 tablet 06-22 01:30: 00 06-22 00:53 :00 No 1{tbl} 1 tablet, Oral, ONCE, 1 dose, On Wed06/21/23 at 1930, Routine [facility] methocarbam oL (ROBAXIN) tablet 1,000 mg 06-22 01:00: 00 06-22 00:58 :00 No 1000mg 1,000 mg, Oral, ONCE, 1 dose, On Wed06/21/23 at 1900, DOUGLAS [facility] traMADoL 50 mg tablet 06-21 00:00: 00 06-29 05:59 :00 No [id number] 50mg Take 1 tablet by mouth every 6 (six) hours as needed for Pain (scale 1-3) for up to 7 days. Indication s: acute pain [facility] ondansetron (ZOFRAN-ODT ) disintegrat ing tablet 8 mg 2022-06 03:30: 00 06-17 02:39 :00 No [id number] 8mg [facility] methylPREDN ISolone sod succ (SOLU-MEDRO L (PF)) injection 40 mg 2022-06 03:30: 00 06-17 02:46 :00 No [id number] 40mg [facility] ketorolac (TORADOL) injection 60 mg 2022-06 03:15: 00 06-17 02:47 :00 No [id number] 60mg [facility] methylpredn isolone sod succ (SOLU-MEDRO L) injection 125 mg 2022-06 03:15: 00 06-17 02:32 :47 No [id number] 125mg [facility] albuterol (VENTOLIN) inhaler 2 Puff 2022-06 03:15: 00 06-17 02:40 :00 No [id number] 2{puff} [facility] albuterol 90 mcg/actuati on inhaler 2022-06 00:00: 00 Yes [id number] 2{puff} Inhale 2 Puffs every 6 (six) hours as needed for Wheezing or Shortness of Breath. [facility] benzonatate 100 mg capsule 2022-06 00:00: 00 Yes [id number] 200mg Take 2 capsules by mouth every 8 (eight) hours as needed for Cough. [facility] amoxicillin -clavulanat e (AUGMENTIN) 875-125 mg per tablet 2022-06 00:00: 00 06-27 05:59 :00 No [id number] 1{tbl} Take 1 tablet by mouth in the morning and 1 tablet in the evening. Do all this for 10 days. [facility] predniSONE 20 mg tablet 2022-06 00:00: 00 06-22 05:59 :00 No [id number] 40mg Take 2 tablets by mouth in the morning for 5 days. [facility] bromphenira mine-pseudo ephedrine-D M (BROMFED DM) 2-30-10 mg/5 mL syrup 2022-06 00:00: 00 01-20 00:00 :00 No [id number] 5mL Take 5 mL by mouth 4 (four) times daily as needed for Cold symptoms. [facility] azelastine 137 mcg (0.1 %) nasal spray 2022-06 00:00: 00 07-21 00:00 :00 No [id number] 1{spray } Use 1 [place] in each nostril in the morning and 1 [place] in the evening. Use in each nostril as directed [facility] amoxicillin -clavulanat e (AUGMENTIN) 875-125 mg per tablet 2022-06 2-06 00:00: 00 06-16 00:00 :00 No [id number] 1{tbl} Take 1 tablet by mouth in the morning and 1 tablet in the evening. [facility] topiramate 25 mg tablet 2022-06 00:00: 00 01-17 00:00 :00 No [id number] 25mg Take 1 tablet by mouth in the morning and 1 tablet in the evening. [facility] amitriptyli ne 25 mg tablet 2022-06 00:00: 00 08-16 00:00 :00 No [id number] 50mg Take 2 tablets by mouth at bedtime. [facility] SUMAtriptan (IMITREX) 50 mg tablet 2022-06 00:00: 00 08-16 00:00 :00 No [id number] 50mg Take 1 tablet by mouth as needed for Migraine. [facility] hydroxychlo roquine (PLAQUENIL) 200 mg tablet 2022-06 00:00: 00 09-15 00:00 :00 No [id number] 300mg Take 1.5 tablets by mouth in the morning. [facility] Methylpredn isolone (MEDROL) tablet 4 mg [...] Q8H TAPER, 3 doses, First dose on 05/03/23 at 0100, Last dose on Wed05/03/23 at 1700, Routine [Order 2 End] [facility] ferrous sulfate 325 mg (65 mg iron) tablet 2022-06 17:08: 54 01-20 00:00 :00 No 325mg Take 1 tablet by mouth in the morning. [facility] SUMAtriptan (IMITREX) tablet 100 mg 2022-06 16:45: 00 05-01 16:41 :00 No 100mg 100 mg, Oral, ONCE, 1 dose, On Wed05/01/23 at 1045, Routine [facility] amitriptyli ne (ELAVIL) tablet 25 mg 2022-06 03:00: 00 Yes 25mg 25 mg, Oral, QHS, First dose (after last modificati on) on Wed04/30/23 at 2100, Until Discontinu ed, Routine [facility] topiramate (TOPAMAX) tablet 25 mg 2022-06 03:00: 00 05-07 02:59 :00 No 25mg 25 mg, Oral, QHS, 6 doses, First dose (after last modificati on) on Wed04/30/23 at 2100, Last dose on Wed05/05/23 at 2100, Routine
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 approving Restricted medication : LORENA KIRK [facility] proCHLORper azine 5 mg tablet 2022-06 00:00: 00 07-31 05:59 :00 No [id number] 10mg Take 2 tablets by mouth every 6 (six) hours as needed for Nausea and Vomiting (N/V) for up to 90 days. [facility] topiramate 25 mg tablet 2022-06 00:00: 00 05-06 00:00 :00 No [id number] 25mg Take 1 tablet by mouth in the morning and 1 tablet in the evening. Do all this for 90 days. [facility] enoxaparin (LOVENOX) injection 40 mg 2022-06 23:00: 00 Yes 40mg 40 mg, Subcutaneo us, DAILY AT 1700, First dose on Wed04/30/23 at 1700, Until Discontinu ed, Routine [facility] SUMAtriptan (IMITREX) tablet 100 mg 2022-06 20:30: 00 04-30 20:40 :00 No 100mg 100 mg, Oral, ONCE, 1 dose, On Wed04/30/23 at 1430, Routine [facility] topiramate (TOPAMAX) tablet 25 mg 2022-06 19:45: 00 04-30 20:47 :23 No 25mg 25 mg, Oral, DAILY, 7 doses, First dose on Wed04/30/23 at 1345, Last dose on Wed05/06/23 at 0900, Routine
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 approving Restricted medication : LORENA KIRK [facility] ketorolac (TORADOL) injection 30 mg 2022-06 15:30: 00 04-30 16:07 :00 No 30mg 30 mg, Slow IV Push, ONCE NOW, 1 dose, On Wed04/30/23 at 0930, DOUGLAS [facility] diphenhydrA MINE (BENADRYL) injection 25 mg 2022-06 15:28: 20 Yes 25mg 25 mg, Intravenou s, Q8HPRN, Starting on Wed04/30/23 at 0928, Until Discontinu ed, Routine, Nausea and Vomiting (N/V), Headache [facility] proCHLORper azine (COMPAZINE) 10 mg in NaCl 0.9% (NS) piggyback 2022-06 15:20: 49 Yes 10mg 10 mg, IV Piggyback, at 100 mL/hr Administer over 30 Minutes, Q8HPRN, Starting on Wed04/30/23 at 0920, Until Discontinu ed, Routine, Nausea and Vomiting (N/V) [facility] acetaminoph en (TYLENOL) tablet 650 mg 2022-06 15:15: 23 Yes 650mg 650 mg, Oral, Q6HPRN, Starting on Wed04/30/23 at 0915, Until Discontinu ed, Routine, Pain (scale 1-3), Pain (scale 4-6) [facility] NaCl 0.9% (NS) IV infusion 1,000 mL 2022-06 14:15: 00 Yes 1000mL at 75 mL/hr, IV Infusion, CONTINUOUS , Starting on Wed04/30/23 at 0815, Until Discontinu ed, Routine [facility] acetaminoph en-codeine (TYLENOL #3) 300-30 mg tablet 1 tablet 2022-06 05:02: 17 Yes 1{tbl} 1 tablet, Oral, Q4HPRN, Starting on Wed04/29/23 at 2302, Until Discontinu ed, Routine, Pain (scale 4-6) [facility] gadobenate dimeglumine (MULTIHANCE -20 mL) injection 18.72 mL 2022-06 03:30: 00 04-30 03:30 :00 No [id number] .2mL/kg 18.72 mL (0.2 mL/kg ?93.6 kg), Intravenou s, ONCE, 1 dose, On Wed04/29/23 at 2130, Routine [facility] amitriptyli ne (ELAVIL) tablet 15 mg 2022-06 03:00: 00 04-30 17:22 :47 No 15mg 15 mg, Oral, QHS, First dose on Wed04/29/23 at 2100, Until Discontinu ed, Routine [facility] HYDROcodone -acetaminop hen (NORCO 5) 5-325 mg tablet 1 tablet 2022-06 01:00: 00 04-30 00:13 :00 No 1{tbl} 1 tablet, Oral, ONCE, 1 dose, On Wed04/29/23 at 1900, Routine [facility] amitriptyli ne 25 mg tablet 2022-06 00:00: 00 05-06 00:00 :00 No [id number] 25mg Take 1 tablet by mouth at bedtime. [facility] SUMAtriptan (IMITREX) 50 mg tablet 2022-06 00:00: 00 05-06 00:00 :00 No [id number] 50mg Take 1 tablet by mouth as needed for Migraine for up to 9 doses. [facility] topiramate 25 mg tablet 2022-06 00:00: 00 05-01 00:00 :00 No [id number] Take 1 tablet by mouth at bedtime for 6 days, THEN 1 tablet 2 (two) times daily for 84 days. [facility] magnesium oxide 420 mg Tab 2022-06 00:00: 00 04-29 00:00 :00 No [id number] 400mg Take 400 mg by mouth in the morning. [facility] LORazepam (ATIVAN) tablet 0.5 mg 2022-06 22:30: 00 04-30 02:13 :00 No .5mg 0.5 mg, Oral, ONCE, 1 dose, On Wed04/29/23 at 1630, Routine [facility] ibuprofen (IBU) tablet 600 mg 2022-06 16:13: 00 04-29 22:19 :36 No 600mg 600 mg, Oral, Q6HPRN, Starting on Wed04/29/23 at 1013, Until Wed04/29/23 at 1619, Routine, Headache, 1-10 pain [facility] magnesium oxide 400 mg (241.3 mg magnesium) tablet 2022-06 00:00: 00 Yes [id number] 400mg Take 1 tablet by mouth in the morning. [facility] ibuprofen 600 mg tablet 2022-06 00:00: 00 01-20 00:00 :00 No [id number] 100 600mg Take 1 tablet by mouth every 6 (six) hours as needed for Pain (scale 1-3). [facility] amitriptyli ne 10 mg tablet 2022-06 00:00: 00 04-30 00:00 :00 No [id number] 15mg Take 1.5 tablets by mouth at bedtime. [facility] amitriptyli ne 10 mg tablet 2022-06 00:00: 00 04-29 00:00 :00 No [id number] 10mg Take 1 tablet by mouth at bedtime. [facility] benzocaine- menthoL (CEPACOL SORE THROAT (RHONDA-MEN)) lozenge 1 Lozenge 2022-06 18:38: 10 Yes 1{lozen ge} 1 Lozenge, Oral, Q4HPRN, Starting on Wed04/28/23 at 1238, Until Discontinu ed, Routine, Sore throat [facility] ondansetron (ZOFRAN (PF)) injection 4 mg 2022-06 16:25: 19 Yes 4mg 4 mg, Slow IV Push, Q6HPRN, Nausea and Vomiting (N/V), Starting on Wed04/28/23 at 1025
Do ses of ondansetro n 16 mg and above need to be administer ed via IV piggyback. For Dose >=24mg ECG monitoring is advisable.
[facility] ketorolac (TORADOL) injection 30 mg 2022-06 00:30: 00 04-28 15:23 :00 No 30mg 30 mg, Slow IV Push, Q8H ABX, 3 doses, First dose on Wed04/27/23 at 1830, Last dose on Wed04/28/23 at 1030, Routine [facility] magnesium sulfate in water 2 gram/50 mL (4 %) infusion 2 g 2022-06 00:15: 00 04-28 01:11 :00 No 2g 2 g, IV Piggyback, Administer over 60 Minutes, ONCE, 1 dose, On Wed04/27/23 at 1815, Routine [facility] ondansetron (ZOFRAN (PF)) injection 4 mg 2022-06 16:30: 00 04-27 15:46 :00 No 4mg 4 mg, Slow IV Push, ONCE, On Wed04/27/23 at 1030, For 1 dose
Do ses of ondansetro n 16 mg and above need to be administer ed via IV piggyback. For Dose >=24mg ECG monitoring is advisable.
[facility] amitriptyli ne (ELAVIL) tablet 10 mg 2022-06 03:00: 00 04-29 22:27 :33 No 10mg 10 mg, Oral, QHS, First dose on Wed04/26/23 at 2100, Until Discontinu ed, Routine [facility] magnesium sulfate in water 4 gram/50 mL (8 %) IV Piggyback 4 g 2022-06 23:30: 00 04-27 06:00 :00 No 4g 4 g, IV Piggyback, at 25 mL/hr Administer over 120 Minutes, ONCE, 1 dose, On Wed04/26/23 at 1730, Routine [facility] acetaminoph en (TYLENOL) tablet 500 mg 2022-06 23:15: 55 04-29 22:27 :33 No 500mg 500 mg, Oral, Q6HPRN, Starting on Wed04/26/23 at 1715, Until Wed04/29/23 at 1627, Routine, Pain (scale 4-6) [facility] ibuprofen (IBU) tablet 600 mg 2022-06 23:15: 43 04-27 23:24 :39 No 600mg 600 mg, Oral, Q6HPRN, Starting on Wed04/26/23 at 1715, Until Wed04/27/23 at 1724, Routine, Pain (scale 1-3) [facility] valproate (DEPACON) 250 mg in D5W piggyback 2022-06 21:30: 00 04-27 19:59 :00 No 250mg 250 mg, IV Piggyback, TID, 3 doses, First dose on Wed04/26/23 at 1530, Last dose on Wed04/27/23 at 0800, Administer over 60 Minutes, 100 mL [facility] magnesium oxide (MAG-OX 400) tablet 400 mg 2022-06 20:45: 00 04-29 22:27 :33 No 400mg 400 mg, Oral, DAILY, First dose on Wed04/26/23 at 1445, Until Discontinu ed, Routine [facility] diphenhydrA MINE (BENADRYL) injection 25 mg 2022-06 20:00: 00 04-26 19:18 :00 No 25mg 25 mg, Intravenou s, ONCE, 1 dose, On Wed04/26/23 at 1400, Routine [facility] ibuprofen (IBU) tablet 800 mg 2022-06 19:15: 00 04-26 18:30 :00 No 800mg 800 mg, Oral, ONCE, 1 dose, On Wed04/26/23 at 1315, Routine [facility] HYDROcodone -acetaminop hen (NORCO 5) 5-325 mg tablet 1 tablet 2022-06 14:30: 00 04-26 16:00 :00 No 1{tbl} 1 tablet, Oral, ONCE, 1 dose, On Wed04/26/23 at 0830, Routine, PACU [facility] proMETHazin e (PHENERGAN) 12.5 mg in NS 50 mL IV piggyback (CNR) 2022-06 14:19: 50 04-26 20:10 :00 No 12.5mg 12.5 mg, IV Piggyback, at 200 mL/hr Administer over 15 Minutes, PRN, 1 dose, Starting on Wed04/26/23 at 0819, Until Wed04/26/23 at 1410, Routine, Nausea and Vomiting (N/V), PACU [facility] ferrous sulfate 325 mg (65 mg iron) tablet 2022-06 08:55: 33 Yes 325mg Take 1 tablet by mouth in the morning. [facility] hydroxychlo roquine 200 mg tablet 2022-06 00:00: 00 05-04 00:00 :00 No [id number] 200mg Take 1 tablet by mouth in the morning. [facility] ferrous sulfate 325 mg (65 mg iron) tablet 2022-06 16:56: 08 Yes 325mg Take 1 tablet by mouth in the morning. [facility] ondansetron 4 mg disintegrat ing tablet 2022-06 0-20 00:00: 00 08-16 00:00 :00 No [id number] 4mg Take 1 tablet by mouth every 8 (eight) hours as needed for Nausea and Vomiting (N/V). [facility] predniSONE 5 mg tablet 2022-06 0-20 00:00: 00 04-25 04:59 :00 No [id number] Take 3 tablets by mouth daily for 5 days, THEN 2 tablets daily for 5 days, THEN 1 tablet daily for 5 days. [facility] ferrous sulfate 325 mg (65 mg iron) tablet 2022-0618 14:04: 54 Yes 325mg Take 1 tablet by mouth in the morning. [facility] norethindro ne 0.35 mg tablet 2022-0616 00:00: 00 07-05 05:59 :00 No [id number] 100 .35mg Take 1 tablet by mouth in the morning for 90 days. [facility] medroxyPROG ESTERone (PROVERA) 5 mg tablet 2022-06 00:00: 00 04-13 04:59 :00 No [id number] 100 5mg Take 1 tablet by mouth in the morning for 7 days. [facility] OZEMPIC 0.25 mg or 0.5 mg (2 mg/3 mL) PnIj 03-17 00:00: 00 01-20 00:00 :00 No INJECT 0.5 MG SUBCUTANEO USLY WEEKLY. [facility] metroNIDAZO LE 500 mg tablet 03-17 00:00: 00 04-07 00:00 :00 No TAKE ONE (1) TABLET(S) BY MOUTH EVERY TWELVE HOURS FOR 7 DAYS. [facility] ciprofloxac in HCl 500 mg tablet 03-17 00:00: 00 04-07 00:00 :00 No TAKE ONE (1) TABLET(S) BY MOUTH EVERY TWELVE HOURS FOR SEVEN DAYS. [facility] phentermine 37.5 mg tablet 03-12 00:00: 00 01-20 00:00 :00 No 37.5mg Take 1 tablet by mouth in the morning. [facility] norelgestro min-ethinyl estradiol (XULANE) 150-35 mcg/24 hr patch 8-14 00:00: 00 Yes [id number] 1{patch } Apply 1 Patch to skin weekly. [facility] ondansetron (ZOFRAN (PF)) injection 4 mg 01-26 02:45: 00 01-26 02:53 :00 No 4mg 4 mg, Slow IV Push, ONCE, 1 dose, On Wed01/25/23 at 2145, DOUGLAS [facility] morpHINE (4 mg/mL) injection 4 mg 01-26 02:45: 00 01-26 02:53 :00 No 4mg 4 mg, Slow IV Push, ONCE, 1 dose, On Wed01/25/23 at 2145, STAT [facility] gabapentin (NEURONTIN) capsule 300 mg 01-09 15:00: 00 Yes 300mg 300 mg, Oral, TID, First dose on 01/09/23 at 1000, Until Discontinu ed, Routine [facility] ibuprofen (IBU) tablet 600 mg 01-09 13:45: 00 Yes 600mg 600 mg, Oral, Q6H, First dose (after last modificati on) on 01/09/23 at 0845, Until Discontinu ed, Routine [facility] oxyCODONE immediate release tablet 5 mg 01-09 07:00: 00 01-09 06:30 :00 No 5mg 5 mg, Oral, ONCE, 1 dose, On 01/09/23 at 0200, Routine
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 approving Restricted medication : ADC OBGYN [facility] proMETHazin e (PHENERGAN) 25 mg in NaCl 0.9% (NS) 50 mL IV piggyback 01-09 06:04: 38 Yes 25mg 25 mg, IV Piggyback, Q4HPRN, Starting on 01/09/23 at 0104, Until Discontinu ed, Routine, Nausea and Vomiting (N/V) [facility] lactated ringers IV infusion 1,000 mL 01-09 05:45: 00 Yes 1000mL at 100 mL/hr, 1,000 mL, IV Infusion, CONTINUOUS , Starting on 01/09/23 at 0045, Until Discontinu ed, Routine, PACU [facility] ondansetron (ZOFRAN (PF)) injection 4 mg 01-09 05:40: 11 Yes 4mg 4 mg, Slow IV Push, Q6HPRN, Starting on 01/09/23 at 0040, Until Discontinu ed, Routine, Nausea and Vomiting (N/V) [facility] FENTanyl PF (SUBLIMAZE (PF)) injection 25 mcg 01-09 04:09: 38 01-09 04:36 :00 No 25ug 25 mcg, Slow IV Push, Q5MIN PRN, 4 doses, Starting on Wed01/08/23 at 2309, Until Wed01/08/23 at 2336, Routine, Pain (scale 4-6), PACU [facility] HYDROmorphO ne (DILAUDID) injection 0.2 mg 01-09 04:09: 38 01-09 05:30 :19 No .2mg 0.2 mg, Slow IV Push, Q5MIN PRN, 10 doses, Starting on Wed01/08/23 at 2309, Until 01/09/23 at 0030, Routine, Pain (scale 7-10), PACU
Us e approved by (Faculty): PACU USE -ANESTHESI A SERVICE-HY DROMORPHON E INJECTIONS [facility] HYDROcodone -acetaminop hen (NORCO 5) 5-325 mg tablet 2 tablet 01-09 04:05: 17 Yes 2{tbl} 2 tablet, Oral, Q6HPRN, Starting on Wed01/08/23 at 2305, Until Discontinu ed, Routine, Pain (scale 7-10) [facility] bupivacaine (preserv free) (SENSORCAIN E MPF) 0.25 % (2.5 mg/mL) injection 01-09 02:15: 00 Yes PRN, Starting on Wed01/08/23 at 2115, Until Discontinu ed, Routine, Intra-op [facility] sodium chloride 0.9 % irrigation solution 01-09 00:50: 00 Yes PRN, Starting on Wed01/08/23 at 1950, Until Discontinu ed, Intra-op [facility] doxycycline hyclate (Vibramycin ) capsule 100 mg 01-09 00:03: 07 01-09 00:14 :00 No 100mg 100 mg, Oral, O.R. HOLDING ONCE, 1 dose, Starting on Wed01/08/23 at 1903, Until Wed01/08/23 at 1914, DOUGLAS, Surgery/Pr ocedure
Reason for Anti-Infec tive: Surgical Prophylaxi s
Surgi kavon Prophylaxi s: QUANTITATIVE ANALYST
Duration of therapy: within 24 hours of surgery [facility] ibuprofen 800 mg tablet 01-09 00:00: 00 04-27 00:00 :00 No [id number] 800mg Take 1 tablet by mouth every 8 (eight) hours as needed (Pain). [facility] HYDROcodone -acetaminop hen 5-325 mg tablet 01-09 00:00: 00 04-07 00:00 :00 No [id number] 1{tbl} Take 1 tablet by mouth every 6 (six) hours as needed (Pain). Indication s: acute pain [facility] NaCl 0.9% (NS) IV infusion 1,000 mL 01-08 20:15: 00 01-09 05:41 :08 No 1000mL at 150 mL/hr, Intravenou s, CONTINUOUS , Starting on Wed01/08/23 at 1515, Until Wed01/09/23 at 0041, DOUGLAS [facility] FENTanyl PF (SUBLIMAZE (PF)) injection 25 mcg 01-08 20:00: 00 01-08 19:18 :00 No 25ug 25 mcg, Slow IV Push, ONCE, 1 dose, On Wed01/08/23 at 1500, Routine [facility] diphenhydrA MINE (BENADRYL) injection 25 mg 01-08 16:53: 00 01-08 16:46 :00 No 25mg 25 mg, Slow IV Push, ONCE, 1 dose, On 7/21/23 at 1200, STAT [facility] NaCl 0.9% (NS) bolus infusion 1,000 mL 01-08 16:45: 00 01-08 19:12 :00 No 1000mL at 999 mL/hr, 1,000 mL, IV Infusion, ONCE, 1 dose, On Wed01/08/23 at 1145, [facility] morpHINE (4 mg/mL) injection 4 mg 01-08 16:00: 00 01-08 16:43 :00 No 4mg 4 mg, Slow IV Push, ONCE, 1 dose, On Wed01/08/23 at 1100, [facility] ondansetron (ZOFRAN (PF)) injection 4 mg 01-08 16:00: 00 01-08 16:43 :00 No 4mg 4 mg, Slow IV Push, ONCE, 1 dose, On Wed01/08/23 at 1100, [facility] NaCl 0.9% (NS) bolus infusion 1,000 mL 01-02 04:45: 00 01-02 05:51 :00 No 1000mL at 999 mL/hr, 1,000 mL, IV Piggyback, ONCE, 1 dose, On Wed01/01/23 at 2345, [facility] ondansetron 4 mg disintegrat ing tablet 01-02 00:00: 00 04-09 00:00 :00 No [id number] 4mg Take 1 tablet by mouth every 12 (twelve) hours as needed for Nausea and Vomiting (N/V). [facility] acetaminoph en-codeine 300-30 mg tablet 01-02 00:00: 00 01-08 00:00 :00 No [id number] 1{tbl} Take 1 tablet by mouth every 6 (six) hours as needed for Pain (scale 7-10) for up to 7 days. Indication s: acute pain [facility] doxylamine- pyridoxine, vit B6, (DICLEGIS) 10-10 mg per tablet 12-21 00:00: 00 04-09 00:00 :00 No [id number] Day 1: Take 2 tablet before bed. Day 2: If still having nausea and vomiting 2 tablet bed. Day 3 take 1 tablet in am and 2 tablet at bed [facility] HYDROcodone -acetaminop hen 7.5-325 mg per tablet 12-17 00:00: 00 01-08 00:00 :00 No TAKE 1 TABLET BY MOUTH EVERY 4 HOURS FOR PAIN [facility] ketorolac 10 mg tablet 12-17 00:00: 00 01-08 00:00 :00 No 10mg Take 1 tablet by mouth every 8 (eight) hours as needed. [facility] Nitrofurant oin&Nit. Macrocryst (MACROBID) 100 mg capsule 12-14 00:00: 00 12-25 04:59 :00 No [id number] 100mg Take 1 capsule by mouth in the morning and 1 capsule in the evening. Do all this for 10 days. [facility] Nitrofurant oin&Nit. Macrocryst (MACROBID) 100 mg capsule 12-12 00:00: 00 12-23 04:59 :00 No [id number] 100mg Take 1 capsule by mouth in the morning and 1 capsule in the evening. Do all this for 10 days. [facility] cetirizine HCl (ZYRTEC ORAL) 12-11 11:04: 03 12-11 00:00 :00 No Take by mouth. [facility] vitamin w/FA tablet 12-11 00:00: 00 Yes [id number] 1{tbl} Take 1 tablet by mouth in the morning. [facility] vitamin w/FA tablet 12-11 00:00: 00 Yes [id number] 1{tbl} Take 1 tablet by mouth in the morning. [facility] proMETHazin e 25 mg tablet 12-11 00:00: 00 01-08 00:00 :00 No [id number] 25mg Take 1 tablet by mouth every 6 (six) hours as needed for Nausea and Vomiting (N/V). [facility] TRINATAL RX 1 60 mg iron-1 mg tablet 12-11 00:00: 00 01-08 00:00 :00 No 1{tbl} Take 1 tablet by mouth every morning. [facility] norelgestro min-ethinyl estradiol 150-35 mcg/24 hr patch 11-12 00:00: 00 12-10 00:00 :00 No [id number] 1{patch } Apply 1 Patch to skin weekly. [facility] SERTraline (ZOLOFT) 100 mg tablet 10-22 00:00: 00 12-11 00:00 :00 No [id number] 100mg Take 1 tablet by mouth in the morning. [facility] ondansetron (ZOFRAN-ODT ) disintegrat ing tablet 4 mg 09-28 13:40: 00 09-28 13:44 :00 No 4mg 4 mg, Oral, ONCE, 1 dose, On 09/28/22 at 0845, Routine [facility] cetirizine HCl (ZYRTEC ORAL) 09-28 13:30: 35 Yes Take by mouth. [facility] lactated ringers IV infusion 1,000 mL 09-28 02:45: 00 Yes 1000mL at 42 mL/hr, 1,000 mL, IV Infusion, CONTINUOUS , Starting on Wed09/27/22 at 2145, Until Discontinu ed, Routine [facility] HYDROmorphO ne (DILAUDID) injection 0.5 mg 09-28 01:50: 58 09-28 03:05 :22 No .5mg 0.5 mg, Slow IV Push, Q5MIN PRN, 4 doses, Starting on Wed09/27/22 at 2050, Until Wed09/27/22 at 2204, DOUGLAS, Pain (scale 7-10), PACU
Us e approved by (Faculty): ADC PROVIDER [facility] HYDROcodone -acetaminop hen (NORCO 5) 5-325 mg tablet 2 tablet 09-28 01:40: 53 Yes 2{tbl} 2 tablet, Oral, Q6HPRN, Starting on 09/27/22 at 2039, Until Discontinu ed, Routine, Pain (scale 7-10) [facility] HYDROcodone -acetaminop hen (NORCO 5) 5-325 mg tablet 1 tablet 09-28 01:40: 46 Yes 1{tbl} 1 tablet, Oral, Q6HPRN, Starting on Wed09/27/22 at 2039, Until Discontinu ed, Routine, Pain (scale 4-6) [facility] water for irrigation irrigation solution 09-28 01:20: 00 Yes PRN, Starting on Wed09/27/22 at 2019, Until Discontinu ed, Routine, Intra-op [facility] HYDROcodone -acetaminop hen 5-325 mg tablet 09-28 00:00: 00 11-12 00:00 :00 No [id number] 1{tbl} Take 1 tablet by mouth every 6 (six) hours as needed for Pain (scale 4-6). Indication s: acute pain [facility] miSOPROStoL (CYTOTEC) tablet 800 mcg 09-27 14:15: 00 09-27 13:36 :00 No 800ug 800 mcg, Oral, ONCE, 1 dose, On 09/27/22 at 0915, Routine [facility] D5W 0.9% NaCl (NS) IV infusion 1,000 mL 09-27 05:30: 00 Yes 1000mL at 125 mL/hr, 1,000 mL, IV Infusion, CONTINUOUS , Starting on 09/27/22 at 0030, Until Discontinu ed, Routine [facility] HYDROcodone -acetaminop hen (NORCO) 10-325 mg tablet 1 tablet 09-27 04:45: 00 09-27 03:42 :00 No 1{tbl} 1 tablet, Oral, ONCE NOW, 1 dose, On 09/26/22 at 2345, Routine [facility] diphenhydrA MINE (BENADRYL) injection 25 mg 09-27 04:40: 31 Yes 25mg 25 mg, Intravenou s, Q6HPRN, Starting on 09/26/22 at 2340, Until Discontinu ed, Routine, Itching [facility] ketorolac (TORADOL) injection 30 mg 09-27 04:33: 40 09-29 04:32 :40 No 30mg 30 mg, Slow IV Push, Q6HPRN, Starting on 09/26/22 at 2333, Until 09/28/22 at 2332, Routine, Pain (scale 1-3), Pain (scale 4-6) [facility] FENTanyl PF (SUBLIMAZE (PF)) injection 50 mcg 09-27 04:33: 26 Yes 50ug 50 mcg, Slow IV Push, Q2HPRN, Starting on 09/26/22 at 2333, Until Discontinu ed, Routine, Pain (scale 7-10) [facility] metoclopram julia HCl (REGLAN) injection 10 mg 09-27 03:45: 00 09-27 03:43 :00 No 10mg 10 mg, Slow IV Push, ONCE, 1 dose, On 09/26/22 at 2245, DOUGLAS [facility] NaCl 0.9% (NS) IV infusion 1,000 mL 09-27 03:30: 00 09-27 03:42 :00 No 1000mL at 999 mL/hr, Intravenou s, ONCE, 1 dose, On 09/26/22 at 2230, Routine [facility] ondansetron (ZOFRAN (PF)) injection 4 mg 09-27 02:45: 00 09-27 02:42 :00 No 4mg 4 mg, Slow IV Push, ONCE, 1 dose, On 09/26/22 at 2145, DOUGLAS [facility] FENTanyl PF (SUBLIMAZE (PF)) injection 25 mcg 09-27 02:45: 00 09-27 02:42 :00 No 25ug 25 mcg, Slow IV Push, ONCE, 1 dose, On 09/26/22 at 2145, STAT [facility] ketorolac (TORADOL) injection 30 mg 09-27 01:15: 00 09-27 00:42 :00 No 30mg 30 mg, Slow IV Push, ONCE, 1 dose, On 09/26/22 at 2014, Routine [facility] NaCl 0.9% (NS) IV infusion 1,000 mL 09-27 01:15: 00 09-27 02:37 :41 No 1000mL at 999 mL/hr, Intravenou s, CONTINUOUS , Starting on 09/26/22 at 2014, Until 09/26/22 at 213, [facility] ondansetron (ZOFRAN (PF)) injection 4 mg 09-27 00:30: 00 09-27 00:34 :00 No 4mg 4 mg, Slow IV Push, ONCE, 1 dose, On 09/26/22 at 1930, [facility] morpHINE (4 mg/mL) injection 4 mg 09-27 00:15: 00 09-27 00:35 :00 No 4mg 4 mg, Slow IV Push, ONCE, 1 dose, On 09/26/22 at 1915, STAT [facility] SERTraline (ZOLOFT) 50 mg tablet 09-23 00:00: 00 10-22 00:00 :00 No [id number] 100 50mg Take 1 tablet by mouth in the morning. [facility] proMETHazin e 25 mg tablet 08-11 00:00: 00 11-12 00:00 :00 No [id number] 25mg Take 1 tablet by mouth every 4 (four) hours as needed for Nausea and Vomiting (N/V). [facility] Iron Fum & P-FA-Vit B & C No.9 (INTEGRA PLUS) 125 mg iron- 1 mg Cap 08-11 00:00: 00 11-12 00:00 :00 No [id number] 1{capsu le} Take 1 capsule by mouth daily. [facility] Iron Fum & P-FA-Vit B & C No.9 (INTEGRA PLUS) 125 mg iron- 1 mg Cap 2-21 00:00: 00 11-12 00:00 :00 No [id number] 1{capsu le} Take 1 capsule by mouth daily. [facility] HYDROcodone -acetaminop hen (NORCO) 10-325 mg tablet 1 tablet 2021-06 09:30: 00 04-27 08:47 :00 No 1{tbl} 1 tablet, Oral, ONCE, 1 dose, On Wed04/27/22 at 0330, Routine [facility] ketorolac (TORADOL) injection 30 mg 2021-06 09:00: 00 04-27 08:25 :00 No 30mg 30 mg, Slow IV Push, ONCE, 1 dose, On Wed04/27/22 at 0300, Routine [facility] tranexamic acid 650 mg tablet 2021-06 00:00: 00 05-03 05:59 :00 No [id number] 100 1300mg Take 2 tablets by mouth in the morning and 2 tablets at noon and 2 tablets in the evening. Do all this for 5 days. [facility] omeprazole 10 mg capsule 12-30 19:26: 59 12-30 00:00 :00 No 10mg Take 10 mg by mouth daily. [facility] norelgestro min-ethinyl estradiol (XULANE) 150-35 mcg/24 hr patch 12-30 00:00: 00 04-27 00:00 :00 No [id number] 1{patch } Apply 1 Patch to skin weekly. For 3 weeks, followed by 1 week no ptach [facility] ibuprofen 600 mg tablet 9- 00:00: 00 12-30 00:00 :00 No [id number] 600mg Take 1 tablet by mouth every 6 (six) hours as needed for Pain (scale 4-6). [facility] cetirizine HCl (ZYRTEC ORAL) 06-27 15:45: 25 Yes Take by mouth. [facility] ibuprofen 600 mg tablet 2019-06 0 00:00: 06-27 00:00 :00 No [id number] 600mg Take 1 tablet by mouth every 6 (six) hours as needed for Pain (scale 4-6). [facility] ondansetron (ZOFRAN ODT) 4 mg disintegrat ing tablet 2019-06 0 00:00: 06-27 00:00 :00 No [id number] 4mg Take 1 tablet by mouth every 8 (eight) hours as needed for Nausea and Vomiting (N/V). [facility] traMADol 50 mg tablet 16 00:00: 00 06-27 00:00 :00 No [id number] 50mg Take 1 tablet by mouth every 6 (six) hours as needed (pain). [facility] proMETHazin e 25 mg tablet 16 00:00: 00 06-27 00:00 :00 No [id number] 25mg Take 1 tablet by mouth every 6 (six) hours as needed for Nausea and Vomiting (N/V). [facility] ibuprofen 600 mg tablet 11-14 00:00: 00 06-27 00:00 :00 No [id number] 600mg Take 1 tablet by mouth every 6 (six) hours as needed for Pain (scale 4-6). [facility] acetaminoph en-codeine 300-30 mg tablet 5 00:00: 00 06-27 00:00 :00 No [id number] 1{tbl} Take 1 tablet by mouth every 4 (four) hours as needed for Pain (scale 4-6). [facility] ondansetron 4 mg disintegrat ing tablet -12 00:00: 00 06-27 00:00 :00 No [id number] 4mg Take 1 tablet by mouth every 4 (four) hours as needed for Nausea and Vomiting (N/V). [facility] acetaminoph en-codeine 300-30 mg tablet -12 00:00: 00 06-27 00:00 :00 No [id number] 1{tbl} Take 1-2 tablets by mouth every 6 (six) hours as needed (cough). [facility] ibuprofen 800 mg tablet 12 00:00: 00 06-27 00:00 :00 No [id number] 800mg Take 1 tablet by mouth every 8 (eight) hours as needed for Pain (scale 4-6). [facility] sod chlor-bicar b-squeez bottle (NEILMED SINUS RINSE COMPLETE) pkdv 2018-06 00:00: 00 06-27 00:00 :00 No [id number] 1{bottl e} Use 1 Bottle in each nostril 2 (two) times daily. Use in hot shower 1 hour before bedtime [facility] promethazin e-codeine 6.25-10 mg/5 mL syrup 2018-06 00:00: 00 06-27 00:00 :00 No [id number] 5mL Take 5 mL by mouth 4 (four) times daily as needed for Cough. [facility] traMADol (ULTRAM) 50 mg tablet 2018-06 00:00: 00 06-27 00:00 :00 No [id number] 50mg Take 1 tablet by mouth every 8 (eight) hours as needed for Pain (scale 4-6). [facility] Immunizations Ordered Immunization Name Filled Immunization Name Date Status Comments Source [facility] 2020-06-27 00:00:00 Completed [facility] 2020-06-27 00:00:00 Completed [facility] 2020-06-27 00:00:00 Completed [facility] 2020-06-27 00:00:00 Completed [facility] 2020-06-27 00:00:00 Completed [facility] 2020-06-27 00:00:00 Completed [facility] 2020-06-27 00:00:00 Completed [facility] 2020-06-27 00:00:00 Completed [facility] 2020-06-27 00:00:00 Completed [facility] HPV9 2020-06-27 00:00:00 Completed [facility] HPV9 2020-06-27 00:00:00 Completed [facility] HPV9 2020-06-27 00:00:00 Completed [facility] HPV9 2020-06-27 00:00:00 Completed [facility] HPV9 2020-06-27 00:00:00 Completed [facility] HPV9 2020-06-27 00:00:00 Completed [facility] HPV9 2020-06-27 00:00:00 Completed [facility] HPV9 2020-06-27 00:00:00 Completed [facility] HPV9 2020-06-27 00:00:00 Completed [facility] HPV9 2020-06-27 00:00:00 Completed [facility] HPV9 2020-06-27 00:00:00 Completed [facility] HPV9 2020-06-27 00:00:00 Completed [facility] HPV9 2020-06-27 00:00:00 Completed [facility] HPV9 2020-06-27 00:00:00 Completed [facility] HPV9 2020-06-27 00:00:00 Completed [facility] HPV9 2020-06-27 00:00:00 Completed [facility] HPV9 2020-06-27 00:00:00 Completed [facility] HPV9 2020-06-27 00:00:00 Completed [facility] HPV9 2020-06-27 00:00:00 Completed [facility] HPV9 2020-06-27 00:00:00 Completed [facility] HPV9 2020-06-27 00:00:00 Completed [facility] HPV9 2020-06-27 00:00:00 Completed [facility] HPV9 2020-06-27 00:00:00 Completed [facility] HPV9 2020-06-27 00:00:00 Completed [facility] HPV9 2020-06-27 00:00:00 Completed [facility] HPV9 2020-06-27 00:00:00 Completed [facility] HPV9 2020-06-27 00:00:00 Completed [facility] HPV9 2020-06-27 00:00:00 Completed [facility] HPV9 2020-06-27 00:00:00 Completed [facility] HPV9 2020-06-27 00:00:00 Completed [facility] HPV9 2020-06-27 00:00:00 Completed [facility] HPV9 2020-06-27 00:00:00 Completed [facility] HPV9 2020-06-27 00:00:00 Completed [facility] HPV9 2020-06-27 00:00:00 Completed [facility] HPV9 2020-06-27 00:00:00 Completed [facility] HPV9 2020-06-27 00:00:00 Completed [facility] HPV9 2020-06-27 00:00:00 Completed [facility] HPV9 2020-06-27 00:00:00 Completed [facility] TDAP 2017-12-21 00:00:00 Completed [facility] TDAP 2017-12-21 00:00:00 Completed [facility] TDAP 2017-12-21 00:00:00 Completed [facility] TDAP 2017-12-21 00:00:00 Completed [facility] TDAP 2017-12-21 00:00:00 Completed [facility] TDAP 2017-12-21 00:00:00 Completed [facility] TDAP 2017-12-21 00:00:00 Completed [facility] TDAP 2017-12-21 00:00:00 Completed [facility] TDAP 2017-12-21 00:00:00 Completed [facility] TDAP 2017-12-21 00:00:00 Completed [facility] TDAP 2017-12-21 00:00:00 Completed [facility] TDAP 2017-12-21 00:00:00 Completed [facility] TDAP 2017-12-21 00:00:00 Completed [facility] TDAP 2017-12-21 00:00:00 Completed [facility] TDAP 2017-12-21 00:00:00 Completed [facility] TDAP 2017-12-21 00:00:00 Completed [facility] TDAP 2017-12-21 00:00:00 Completed [facility] TDAP 2017-12-21 00:00:00 Completed [facility] TDAP 2017-12-21 00:00:00 Completed [facility] TDAP 2017-12-21 00:00:00 Completed [facility] TDAP 2017-12-21 00:00:00 Completed [facility] TDAP 2017-12-21 00:00:00 Completed [facility] TDAP 2017-12-21 00:00:00 Completed [facility] TDAP 2017-12-21 00:00:00 Completed [facility] TDAP 2017-12-21 00:00:00 Completed [facility] TDAP 2017-12-21 00:00:00 Completed [facility] TDAP 2017-12-21 00:00:00 Completed [facility] TDAP 2017-12-21 00:00:00 Completed [facility] TDAP 2017-12-21 00:00:00 Completed [facility] TDAP 2017-12-21 00:00:00 Completed [facility] TDAP 2017-12-21 00:00:00 Completed [facility] TDAP 2017-12-21 00:00:00 Completed [facility] TDAP 2017-12-21 00:00:00 Completed [facility] TDAP 2017-12-21 00:00:00 Completed [facility] TDAP 2017-12-21 00:00:00 Completed [facility] TDAP 2017-12-21 00:00:00 Completed [facility] TDAP 2017-12-21 00:00:00 Completed [facility] TDAP 2017-12-21 00:00:00 Completed [facility] TDAP 2017-12-21 00:00:00 Completed [facility] TDAP 2017-12-21 00:00:00 Completed [facility] TDAP 2017-12-21 00:00:00 Completed [facility] TDAP 2017-12-21 00:00:00 Completed [facility] TDAP 2017-12-21 00:00:00 Completed [facility] TDAP 2017-12-21 00:00:00 Completed [facility] TDAP 2017-12-21 00:00:00 Completed [facility] TDAP 2017-12-21 00:00:00 Completed [facility] TDAP 2017-12-21 00:00:00 Completed [facility] TDAP 2016-07-09 00:00:00 Completed [facility] TDAP 2016-07-09 00:00:00 Completed [facility] TDAP 2016-07-09 00:00:00 Completed [facility] TDAP 2016-07-09 00:00:00 Completed [facility] TDAP 2016-07-09 00:00:00 Completed [facility] TDAP 2016-07-09 00:00:00 Completed [facility] TDAP 2016-07-09 00:00:00 Completed [facility] TDAP 2016-07-09 00:00:00 Completed [facility] TDAP 2016-07-09 00:00:00 Completed [facility] TDAP 2016-07-09 00:00:00 Completed [facility] TDAP 2016-07-09 00:00:00 Completed [facility] TDAP 2016-07-09 00:00:00 Completed [facility] TDAP 2016-07-09 00:00:00 Completed [facility] TDAP 2016-07-09 00:00:00 Completed [facility] TDAP 2016-07-09 00:00:00 Completed [facility] TDAP 2016-07-09 00:00:00 Completed [facility] TDAP 2016-07-09 00:00:00 Completed [facility] TDAP 2016-07-09 00:00:00 Completed [facility] TDAP 2016-07-09 00:00:00 Completed [facility] TDAP 2016-07-09 00:00:00 Completed [facility] TDAP 2016-07-09 00:00:00 Completed [facility] TDAP 2016-07-09 00:00:00 Completed [facility] TDAP 2016-07-09 00:00:00 Completed [facility] TDAP 2016-07-09 00:00:00 Completed [facility] TDAP 2016-07-09 00:00:00 Completed [facility] TDAP 2016-07-09 00:00:00 Completed [facility] TDAP 2016-07-09 00:00:00 Completed [facility] TDAP 2016-07-09 00:00:00 Completed [facility] TDAP 2016-07-09 00:00:00 Completed [facility] TDAP 2016-07-09 00:00:00 Completed [facility] TDAP 2016-07-09 00:00:00 Completed [facility] TDAP 2016-07-09 00:00:00 Completed [facility] TDAP 2016-07-09 00:00:00 Completed [facility] TDAP 2016-07-09 00:00:00 Completed [facility] TDAP 2016-07-09 00:00:00 Completed [facility] TDAP 2016-07-09 00:00:00 Completed [facility] TDAP 2016-07-09 00:00:00 Completed [facility] TDAP 2016-07-09 00:00:00 Completed [facility] TDAP 2016-07-09 00:00:00 Completed [facility] TDAP 2016-07-09 00:00:00 Completed TDAP 2016-07-09 00:00:00 Completed [facility] TDAP 2016-07-09 00:00:00 Completed [facility] TDAP 2016-07-09 00:00:00 Completed [facility] TDAP 2016-07-09 00:00:00 Completed [facility] TDAP 2016-07-09 00:00:00 Completed [facility] TDAP 2016-07-09 00:00:00 Completed [facility] TDAP 2016-07-09 00:00:00 Completed [facility] Influenza Virus Vaccine Quad IM 3+ YRS 2016-03-25 00:00:00 Completed [facility] Influenza Virus Vaccine Quad IM 3+ YRS 2016-03-25 00:00:00 Completed [facility] Influenza Virus Vaccine Quad IM 3+ YRS 2016-03-25 00:00:00 Completed [facility] Influenza Virus Vaccine Quad IM 3+ YRS 2016-03-25 00:00:00 Completed [facility] Influenza Virus Vaccine Quad IM 3+ YRS 2016-03-25 00:00:00 Completed [facility] Influenza Virus Vaccine Quad IM 3+ YRS 2016-03-25 00:00:00 Completed [facility] Influenza Virus Vaccine Quad IM 3+ YRS 2016-03-25 00:00:00 Completed [facility] Influenza Virus Vaccine Quad IM 3+ YRS 2016-03-25 00:00:00 Completed [facility] Influenza Virus Vaccine Quad IM 3+ YRS 2016-03-25 00:00:00 Completed [facility] Influenza Virus Vaccine Quad IM 3+ YRS 2016-03-25 00:00:00 Completed [facility] Influenza Virus Vaccine Quad IM 3+ YRS 2016-03-25 00:00:00 Completed [facility] Influenza Virus Vaccine Quad IM 3+ YRS 2016-03-25 00:00:00 Completed [facility] Influenza Virus Vaccine Quad IM 3+ YRS 2016-03-25 00:00:00 Completed [facility] Influenza Virus Vaccine Quad IM 3+ YRS 2016-03-25 00:00:00 Completed [facility] Influenza Virus Vaccine Quad IM 3+ YRS 2016-03-25 00:00:00 Completed [facility] Influenza Virus Vaccine Quad IM 3+ YRS 2016-03-25 00:00:00 Completed [facility] Influenza Virus Vaccine Quad IM 3+ YRS 2016-03-25 00:00:00 Completed [facility] Influenza Virus Vaccine Quad IM 3+ YRS 2016-03-25 00:00:00 Completed [facility] Influenza Virus Vaccine Quad IM 3+ YRS 2016-03-25 00:00:00 Completed [facility] Influenza Virus Vaccine Quad IM 3+ YRS 2016-03-25 00:00:00 Completed [facility] Influenza Virus Vaccine Quad IM 3+ YRS 2016-03-25 00:00:00 Completed [facility] Influenza Virus Vaccine Quad IM 3+ YRS 2016-03-25 00:00:00 Completed [facility] Influenza Virus Vaccine Quad IM 3+ YRS 2016-03-25 00:00:00 Completed [facility] Influenza Virus Vaccine Quad IM 3+ YRS 2016-03-25 00:00:00 Completed [facility] Influenza Virus Vaccine Quad IM 3+ YRS 2016-03-25 00:00:00 Completed [facility] Influenza Virus Vaccine Quad IM 3+ YRS 2016-03-25 00:00:00 Completed [facility] Influenza Virus Vaccine Quad IM 3+ YRS 2016-03-25 00:00:00 Completed [facility] Influenza Virus Vaccine Quad IM 3+ YRS 2016-03-25 00:00:00 Completed [facility] Influenza Virus Vaccine Quad IM 3+ YRS 2016-03-25 00:00:00 Completed [facility] Influenza Virus Vaccine Quad IM 3+ YRS 2016-03-25 00:00:00 Completed [facility] Influenza Virus Vaccine Quad IM 3+ YRS 2016-03-25 00:00:00 Completed [facility] Influenza Virus Vaccine Quad IM 3+ YRS 2016-03-25 00:00:00 Completed [facility] Influenza Virus Vaccine Quad IM 3+ YRS 2016-03-25 00:00:00 Completed [facility] Influenza Virus Vaccine Quad IM 3+ YRS 2016-03-25 00:00:00 Completed [facility] Influenza Virus Vaccine Quad IM 3+ YRS 2016-03-25 00:00:00 Completed [facility] Influenza Virus Vaccine Quad IM 3+ YRS 2016-03-25 00:00:00 Completed [facility] Influenza Virus Vaccine Quad IM 3+ YRS 2016-03-25 00:00:00 Completed [facility] Influenza Virus Vaccine Quad IM 3+ YRS 2016-03-25 00:00:00 Completed [facility] Influenza Virus Vaccine Quad IM 3+ YRS 2016-03-25 00:00:00 Completed [facility] Influenza Virus Vaccine Quad IM 3+ YRS 2016-03-25 00:00:00 Completed [facility] Influenza Virus Vaccine Quad IM 3+ YRS 2016-03-25 00:00:00 Completed [facility] Influenza Virus Vaccine Quad IM 3+ YRS 2016-03-25 00:00:00 Completed [facility] Influenza Virus Vaccine Quad IM 3+ YRS 2016-03-25 00:00:00 Completed [facility] Influenza Virus Vaccine Quad IM 3+ YRS 2016-03-25 00:00:00 Completed [facility] Influenza Virus Vaccine Quad IM 3+ YRS 2016-03-25 00:00:00 Completed [facility] Influenza Virus Vaccine Quad IM 3+ YRS 2016-03-25 00:00:00 Completed [facility] Influenza Virus Vaccine Quad IM 3+ YRS 2016-03-25 00:00:00 Completed [facility] Influenza Virus Vaccine Quad IM 3+ YRS Unknown Completed [facility] TDAP Unknown Completed [facility] HPV9 Unknown Completed [facility] Influenza Virus Vaccine Quad IM 3+ YRS Unknown Completed [facility] TDAP Unknown Completed [facility] HPV9 Unknown Completed [facility] Influenza Virus Vaccine Quad IM 3+ YRS Unknown Completed [facility] TDAP Unknown Completed [facility] HPV9 Unknown Completed [facility] Influenza Virus Vaccine Quad IM 3+ YRS Unknown Completed [facility] TDAP Unknown Completed [facility] HPV9 Unknown Completed [facility] Influenza Virus Vaccine Quad IM 3+ YRS Unknown Completed [facility] TDAP Unknown Completed [facility] HPV9 Unknown Completed [facility] Influenza Virus Vaccine Quad IM 3+ YRS Unknown Completed [facility] TDAP Unknown Completed [facility] HPV9 Unknown Completed [facility] Influenza Virus Vaccine Quad IM 3+ YRS Unknown Completed [facility] TDAP Unknown Completed [facility] HPV9 Unknown Completed [facility] Influenza Virus Vaccine Quad IM 3+ YRS Unknown Completed [facility] TDAP Unknown Completed [facility] HPV9 Unknown Completed [facility] Influenza Virus Vaccine Quad IM 3+ YRS Unknown Completed [facility] TDAP Unknown Completed [facility] HPV9 Unknown Completed [facility] Influenza Virus Vaccine Quad IM 3+ YRS Unknown Completed [facility] TDAP Unknown Completed [facility] HPV9 Unknown Completed [facility] Influenza Virus Vaccine Quad IM 3+ YRS Unknown Completed [facility] TDAP Unknown Completed [facility] HPV9 Unknown Completed [facility] Influenza Virus Vaccine Quad IM 3+ YRS Unknown Completed [facility] TDAP Unknown Completed [facility] Influenza Virus Vaccine Quad IM 3+ YRS Unknown Completed [facility] TDAP Unknown Completed [facility] HPV9 Unknown Completed [facility] Influenza Virus Vaccine Quad IM 3+ YRS Unknown Completed [facility] TDAP Unknown Completed [facility] HPV9 Unknown Completed [facility] HPV9 Unknown Completed [facility] TDAP Unknown Completed [facility] Influenza Virus Vaccine Quad IM 3+ YRS Unknown Completed [facility] HPV9 Unknown Completed [facility] TDAP Unknown Completed [facility] Influenza Virus Vaccine Quad IM 3+ YRS Unknown Completed [facility] HPV9 Unknown Completed [facility] TDAP Unknown Completed [facility] Influenza Virus Vaccine Quad IM 3+ YRS Unknown Completed [facility] TDAP Unknown Completed [facility] HPV9 Unknown Completed [facility] Influenza Virus Vaccine Quad IM 3+ YRS Unknown Completed [facility] TDAP Unknown Completed [facility] HPV9 Unknown Completed [facility] Influenza Virus Vaccine Quad IM 3+ YRS Unknown Completed [facility] HPV9 Unknown Completed [facility] HPV9 Unknown Completed [facility] TDAP Unknown Completed [facility] Influenza Virus Vaccine Quad IM 3+ YRS Unknown Completed [facility] TDAP Unknown Completed [facility] HPV9 Unknown Completed [facility] TDAP Unknown Completed [facility] Influenza Virus Vaccine Quad IM 3+ YRS Unknown Completed [facility] Influenza Virus Vaccine Quad IM 3+ YRS Unknown Completed [facility] HPV9 Unknown Completed [facility] TDAP Unknown Completed [facility] Influenza Virus Vaccine Quad IM 3+ YRS Unknown Completed [facility] TDAP Unknown Completed [facility] HPV9 Unknown Completed [facility] Influenza Virus Vaccine Quad IM 3+ YRS Unknown Completed [facility] TDAP Unknown Completed [facility] HPV9 Unknown Completed [facility] Influenza Virus Vaccine Quad IM 3+ YRS Unknown Completed [facility] Influenza Virus Vaccine Quad IM 3+ YRS Unknown Completed [facility] TDAP Unknown Completed [facility] HPV9 Unknown Completed [facility] Influenza Virus Vaccine Quad IM 3+ YRS Unknown Completed [facility] TDAP Unknown Completed [facility] HPV9 Unknown Completed [facility] Influenza Virus Vaccine Quad IM 3+ YRS Unknown Completed [facility] HPV9 Unknown Completed [facility] TDAP Unknown Completed [facility] Influenza Virus Vaccine Quad IM 3+ YRS Unknown Completed [facility] TDAP Unknown Completed [facility] HPV9 Unknown Completed [facility] Influenza Virus Vaccine Quad IM 3+ YRS Unknown Completed [facility] TDAP Unknown Completed [facility] HPV9 Unknown Completed [facility] Influenza Virus Vaccine Quad IM 3+ YRS Unknown Completed [facility] TDAP Unknown Completed [facility] HPV9 Unknown Completed [facility] Influenza Virus Vaccine Quad IM 3+ YRS Unknown Completed [facility] TDAP Unknown Completed [facility] HPV9 Unknown Completed [facility] Influenza Virus Vaccine Quad IM 3+ YRS Unknown Completed [facility] HPV9 Unknown Completed [facility] TDAP Unknown Completed [facility] Influenza Virus Vaccine Quad IM 3+ YRS Unknown Completed [facility] TDAP Unknown Completed [facility] HPV9 Unknown Completed [facility] Influenza Virus Vaccine Quad IM 3+ YRS Unknown Completed [facility] TDAP Unknown Completed [facility] HPV9 Unknown Completed [facility] Influenza Virus Vaccine Quad IM 3+ YRS Unknown Completed [facility] TDAP Unknown Completed [facility] HPV9 Unknown Completed [facility] Influenza Virus Vaccine Quad IM 3+ YRS Unknown Completed [facility] TDAP Unknown Completed [facility] HPV9 Unknown Completed [facility] Influenza Virus Vaccine Quad IM 3+ YRS Unknown Completed [facility] TDAP Unknown Completed [facility] HPV9 Unknown Completed [facility] Influenza Virus Vaccine Quad IM 3+ YRS Unknown Completed [facility] TDAP Unknown Completed [facility] HPV9 Unknown Completed [facility] Influenza Virus Vaccine Quad IM 3+ YRS Unknown Completed [facility] TDAP Unknown Completed [facility] HPV9 Unknown Completed [facility] Influenza Virus Vaccine Quad IM 3+ YRS Unknown Completed [facility] TDAP Unknown Completed [facility] HPV9 Unknown Completed [facility] Influenza Virus Vaccine Quad IM 3+ YRS Unknown Completed [facility] TDAP Unknown Completed [facility] HPV9 Unknown Completed [facility] Influenza Virus Vaccine Quad IM 3+ YRS Unknown Completed [facility] TDAP Unknown Completed [facility] HPV9 Unknown Completed [facility] Influenza Virus Vaccine Quad IM 3+ YRS Unknown Completed [facility] TDAP Unknown Completed [facility] HPV9 Unknown Completed [facility] Influenza Virus Vaccine Quad IM 3+ YRS Unknown Completed [facility] TDAP Unknown Completed [facility] HPV9 Unknown Completed [facility] Influenza Virus Vaccine Quad IM 3+ YRS Unknown Completed [facility] TDAP Unknown Completed [facility] HPV9 Unknown Completed [facility] Influenza Virus Vaccine Quad IM 3+ YRS Unknown Completed [facility] TDAP Unknown Completed [facility] HPV9 Unknown Completed [facility] Influenza Virus Vaccine Quad IM 3+ YRS Unknown Completed [facility] HPV9 Unknown Completed [facility] TDAP Unknown Completed [facility] Influenza Virus Vaccine Quad IM 3+ YRS Unknown Completed [facility] TDAP Unknown Completed [facility] HPV9 Unknown Completed [facility] Influenza Virus Vaccine Quad IM 3+ YRS Unknown Completed [facility] TDAP Unknown Completed [facility] HPV9 Unknown Completed [facility] Influenza Virus Vaccine Quad IM 3+ YRS Unknown Completed [facility] TDAP Unknown Completed [facility] HPV9 Unknown Completed [facility] Influenza Virus Vaccine Quad IM 3+ YRS Unknown Completed [facility] TDAP Unknown Completed [facility] HPV9 Unknown Completed [facility] Influenza Virus Vaccine Quad IM 3+ YRS Unknown Completed [facility] HPV9 Unknown Completed [facility] TDAP Unknown Completed [facility] Influenza Virus Vaccine Quad IM 3+ YRS Unknown Completed [facility] TDAP Unknown Completed [facility] HPV9 Unknown Completed [facility] Influenza Virus Vaccine Quad IM 3+ YRS Unknown Completed [facility] TDAP Unknown Completed [facility] HPV9 Unknown Completed [facility] Influenza Virus Vaccine Quad IM 3+ YRS Unknown Completed [facility] TDAP Unknown Completed [facility] HPV9 Unknown Completed [facility] Influenza Virus Vaccine Quad IM 3+ YRS Unknown Completed [facility] TDAP Unknown Completed [facility] HPV9 Unknown Completed [facility] Influenza Virus Vaccine Quad IM 3+ YRS Unknown Completed [facility] HPV9 Unknown Completed [facility] TDAP Unknown Completed [facility] Influenza Virus Vaccine Quad IM 3+ YRS Unknown Completed [facility] TDAP Unknown Completed [facility] HPV9 Unknown Completed [facility] Influenza Virus Vaccine Quad IM 3+ YRS Unknown Completed [facility] HPV9 Unknown Completed [facility] Influenza Virus Vaccine Quad IM 3+ YRS Unknown Completed [facility] TDAP Unknown Completed [facility] HPV9 Unknown Completed [facility] TDAP Unknown Completed [facility] Influenza Virus Vaccine Quad IM 3+ YRS Unknown Completed [facility] TDAP Unknown Completed [facility] HPV9 Unknown Completed [facility] Influenza Virus Vaccine Quad IM 3+ YRS Unknown Completed [facility] HPV9 Unknown Completed [facility] TDAP Unknown Completed [facility] Influenza Virus Vaccine Quad IM 3+ YRS Unknown Completed [facility] TDAP Unknown Completed [facility] HPV9 Unknown Completed [facility] Influenza Virus Vaccine Quad IM 3+ YRS Unknown Completed [facility] TDAP Unknown Completed [facility] HPV9 Unknown Completed [facility] Influenza Virus Vaccine Quad IM 3+ YRS Unknown Completed [facility] TDAP Unknown Completed [facility] HPV9 Unknown Completed [facility] Influenza Virus Vaccine Quad IM 3+ YRS Unknown Completed [facility] TDAP Unknown Completed [facility] HPV9 Unknown Completed [facility] Influenza Virus Vaccine Quad IM 3+ YRS Unknown Completed [facility] TDAP Unknown Completed [facility] HPV9 Unknown Completed [facility] Influenza Virus Vaccine Quad IM 3+ YRS Unknown Completed [facility] TDAP Unknown Completed [facility] HPV9 Unknown Completed [facility] Influenza Virus Vaccine Quad IM 3+ YRS Unknown Completed [facility] TDAP Unknown Completed [facility] HPV9 Unknown Completed [facility] Influenza Virus Vaccine Quad IM 3+ YRS Unknown Completed [facility] TDAP Unknown Completed [facility] HPV9 Unknown Completed [facility] Influenza Virus Vaccine Quad IM 3+ YRS Unknown Completed [facility] TDAP Unknown Completed [facility] HPV9 Unknown Completed [facility] Influenza Virus Vaccine Quad IM 3+ YRS Unknown Completed [facility] TDAP Unknown Completed [facility] HPV9 Unknown Completed [facility] Influenza Virus Vaccine Quad IM 3+ YRS Unknown Completed [facility] TDAP Unknown Completed [facility] HPV9 Unknown Completed [facility] Influenza Virus Vaccine Quad IM 3+ YRS Unknown Completed [facility] TDAP Unknown Completed [facility] HPV9 Unknown Completed [facility] Influenza Virus Vaccine Quad IM 3+ YRS Unknown Completed [facility] TDAP Unknown Completed [facility] HPV9 Unknown Completed [facility] Influenza Virus Vaccine Quad IM 3+ YRS Unknown Completed [facility] HPV9 Unknown Completed [facility] TDAP Unknown Completed [facility] Influenza Virus Vaccine Quad IM 3+ YRS Unknown Completed [facility] TDAP Unknown Completed [facility] HPV9 Unknown Completed [facility] Influenza Virus Vaccine Quad IM 3+ YRS Unknown Completed [facility] HPV9 Unknown Completed [facility] Influenza Virus Vaccine Quad IM 3+ YRS Unknown Completed [facility] TDAP Unknown Completed [facility] [facility] Vaccine Quad IM 3+ YRS Unknown Completed [facility] TDAP Unknown [facility]pleted [facility] HPV9 Unknown Completed [facility] TDAP Unknown Completed [facility] Influenza Virus Vaccine Quad IM 3+ YRS Unknown Completed [facility] HPV9 Unknown Completed [facility] TDAP Unknown Completed [facility] Influenza Virus Vaccine Quad IM 3+ YRS Unknown Completed [facility] TDAP Unknown Completed [facility] HPV9 Unknown Completed [facility] Influenza Virus Vaccine Quad IM 3+ YRS Unknown Completed [facility] TDAP Unknown Completed [facility] HPV9 Unknown Completed [facility] Influenza Virus Vaccine Quad IM 3+ YRS Unknown Completed [facility] TDAP Unknown Completed [facility] HPV9 Unknown Completed [facility] Influenza Virus Vaccine Quad IM 3+ YRS Unknown Completed [facility] TDAP Unknown Completed [facility] HPV9 Unknown Completed [facility] Influenza Virus Vaccine Quad IM 3+ YRS Unknown Completed [facility] HPV9 Unknown Completed [facility] TDAP Unknown Completed [facility] Influenza Virus Vaccine Quad IM 3+ YRS Unknown Completed [facility] TDAP Unknown Completed [facility] HPV9 Unknown Completed [facility] Influenza Virus Vaccine Quad IM 3+ YRS Unknown Completed [facility] TDAP Unknown Completed [facility] HPV9 Unknown Completed [facility] Influenza Virus Vaccine Quad IM 3+ YRS Unknown Completed [facility] HPV9 Unknown Completed [facility] TDAP Unknown Completed [facility] Influenza Virus Vaccine Quad IM 3+ YRS Unknown Completed [facility] TDAP Unknown Completed [facility] HPV9 Unknown Completed [facility] Influenza Virus Vaccine Quad IM 3+ YRS Unknown Completed [facility] TDAP Unknown Completed [facility] HPV9 Unknown Completed [facility] Influenza Virus Vaccine Quad IM 3+ YRS Unknown Completed [facility] HPV9 Unknown Completed [facility] TDAP Unknown Completed [facility] Influenza Virus Vaccine Quad IM 3+ YRS Unknown Completed [facility] TDAP Unknown Completed [facility] HPV9 Unknown Completed [facility] Influenza Virus Vaccine Quad IM 3+ YRS Unknown Completed [facility] TDAP Unknown Completed [facility] HPV9 Unknown Completed [facility] Influenza Virus Vaccine Quad IM 3+ YRS Unknown Completed [facility] TDAP Unknown Completed [facility] HPV9 Unknown Completed [facility] Influenza Virus Vaccine Quad IM 3+ YRS Unknown Completed [facility] TDAP Unknown Completed [facility] HPV9 Unknown Completed [facility] Influenza Virus Vaccine Quad IM 3+ YRS Unknown Completed [facility] TDAP Unknown Completed [facility] HPV9 Unknown Completed [facility] Influenza Virus Vaccine Quad IM 3+ YRS Unknown Completed [facility] TDAP Unknown Completed [facility] HPV9 Unknown Completed [facility] Influenza Virus Vaccine Quad IM 3+ YRS Unknown Completed [facility] TDAP Unknown Completed [facility] HPV9 Unknown Completed [facility] Influenza Virus Vaccine Quad IM 3+ YRS Unknown Completed [facility] TDAP Unknown Completed [facility] HPV9 Unknown Completed [facility] Influenza Virus Vaccine Quad IM 3+ YRS Unknown Completed [facility] TDAP Unknown Completed [facility] HPV9 Unknown Completed [facility] Influenza Virus Vaccine Quad IM 3+ YRS Unknown Completed [facility] TDAP Unknown Completed [facility] HPV9 Unknown Completed [facility] Influenza Virus Vaccine Quad IM 3+ YRS Unknown Completed [facility] TDAP Unknown Completed [facility] HPV9 Unknown Completed [facility] Influenza Virus Vaccine Quad IM 3+ YRS Unknown Completed [facility] TDAP Unknown Completed [facility] HPV9 Unknown Completed [facility] Influenza Virus Vaccine Quad IM 3+ YRS Unknown Completed [facility] TDAP Unknown Completed [facility] HPV9 Unknown Completed [facility] Influenza Virus Vaccine Quad IM 3+ YRS Unknown Completed [facility] TDAP Unknown Completed [facility] HPV9 Unknown Completed [facility] Influenza Virus Vaccine Quad IM 3+ YRS Unknown Completed [facility] TDAP Unknown Completed [facility] HPV9 Unknown Completed [facility] Influenza Virus Vaccine Quad IM 3+ YRS Unknown Completed [facility] TDAP Unknown Completed [facility] HPV9 Unknown Completed [facility] Influenza Virus Vaccine Quad IM 3+ YRS Unknown Completed [facility] TDAP Unknown Completed [facility] HPV9 Unknown Completed [facility] Influenza Virus Vaccine Quad IM 3+ YRS Unknown Completed [facility] TDAP Unknown Completed [facility] HPV9 Unknown Completed [facility] Influenza Virus Vaccine Quad IM 3+ YRS Unknown Completed [facility] TDAP Unknown Completed [facility] HPV9 Unknown Completed [facility] Influenza Virus Vaccine Quad IM 3+ YRS Unknown Completed [facility] TDAP Unknown Completed [facility] HPV9 Unknown Completed [facility] Influenza Virus Vaccine Quad IM 3+ YRS Unknown Completed [facility] TDAP Unknown Completed [facility] HPV9 Unknown Completed [facility] Vital Signs Vital Name Observation Time Observation Value Comments S ource Systolic blood pressure 2024-05-25 19:29:00 109 mm[Hg] [facility] Diastolic blood pressure 2024-05-25 19:29:00 66 mm[Hg] [facility] Heart rate 2024-05-25 19:29:00 77 /min [facility] Body temperature 2024-05-25 19:29:00 36.22 Sandhya [facility] Body height 2024-05-25 19:29:00 170.2 cm [facility] Body weight 2024-05-25 19:29:00 95.255 kg [facility] BMI 2024-05-25 19:29:00 32.89 kg/m2 [facility] Oxygen saturation in Arterial blood by Pulse oximetry 2024-05-25 19:29:00 100 /min [facility] Body height 2024-05-09 23:01:00 170.2 cm [facility] Body weight 2024-05-09 23:01:00 97.523 kg [facility] BMI 2024-05-09 23:01:00 33.67 kg/m2 [facility] Systolic blood pressure 2024-05-09 23:00:00 114 mm[Hg] [facility] Diastolic blood pressure 2024-05-09 23:00:00 70 mm[Hg] [facility] Heart rate 2024-05-09 23:00:00 66 /min [facility] Body temperature 2024-05-09 23:00:00 36.44 Sandhya [facility] Respiratory rate 2024-05-09 23:00:00 18 /min [facility] Oxygen saturation in Arterial blood by Pulse oximetry 2024-05-09 23:00:00 100 /min [facility] Systolic blood pressure 2024-05-09 20:40:00 105 mm[Hg] [facility] Diastolic blood pressure 2024-05-09 20:40:00 73 mm[Hg] [facility] Heart rate 2024-05-09 20:40:00 65 /min [facility] Respiratory rate 2024-05-09 20:40:00 13 /min [facility] Oxygen saturation in Arterial blood by Pulse oximetry 2024-05-09 20:40:00 96 /min [facility] Body temperature 2024-05-09 17:28:00 36.28 Sandhya [facility] Body height 2024-05-09 17:15:00 170.2 cm [facility] Body weight 2024-05-09 17:15:00 97.523 kg [facility] BMI 2024-05-09 17:15:00 33.67 kg/m2 [facility] Systolic blood pressure 2024-05-09 17:28:00 105 mm[Hg] [facility] Diastolic blood pressure 2024-05-09 17:28:00 74 mm[Hg] [facility] Heart rate 2024-05-09 17:28:00 81 /min [facility] Body temperature 2024-05-09 17:28:00 36.28 Sandhya [facility] Respiratory rate 2024-05-09 17:28:00 22 /min [facility] Oxygen saturation in Arterial blood by Pulse oximetry 2024-05-09 17:28:00 95 /min [facility] Body height 2024-05-09 17:15:00 [facility].2 [facility] 2024-05-09 17:15:00 97.523 kg [facility] BMI 2024-05-09 17:15:00 33.67 kg/m2 [facility] Systolic blood pressure 2024-04-13 14:21:00 102 mm[Hg] [facility] Diastolic blood pressure 2024-04-13 14:21:00 72 mm[Hg] [facility] Heart rate 2024-04-13 14:21:00 70 /min [facility] Respiratory rate 2024-04-13 14:21:00 18 /min [facility] Body height 2024-04-13 14:21:00 170.2 cm [facility] Body weight 2024-04-13 14:21:00 98.839 kg [facility] BMI 2024-04-13 14:21:00 34.13 kg/m2 [facility] Oxygen saturation in Arterial blood by Pulse oximetry 2024-04-13 14:21:00 100 /min [facility] Systolic blood pressure 2024-03-01 15:01:00 115 mm[Hg] [facility] Diastolic blood pressure 2024-03-01 15:01:00 79 mm[Hg] [facility] Heart rate 2024-03-01 15:01:00 84 /min [facility] Body temperature 2024-03-01 15:01:00 36.11 Sandhya [facility] Body height 2024-03-01 15:01:00 [facility].2 [facility] 2024-03-01 15:01:00 100.245 kg [facility] BMI 2024-03-01 15:01:00 34.61 kg/m2 [facility] Oxygen saturation in Arterial blood by Pulse oximetry 2024-03-01 15:01:00 100 /min [facility] Systolic blood pressure 2024-02-17 21:26:00 106 mm[Hg] [facility] Diastolic blood pressure 2024-02-17 21:26:00 73 mm[Hg] [facility] Heart rate 2024-02-17 21:26:00 86 /min [facility] Body temperature 2024-02-17 21:26:00 36.28 Sandhya [facility] Respiratory rate 2024-02-17 21:26:00 18 /min [facility] Body height 2024-02-17 21:26:00 167.6 cm [facility] Body weight 2024-02-17 21:26:00 97.693 kg [facility] BMI 2024-02-17 21:26:00 34.76 kg/m2 [facility] Oxygen saturation in Arterial blood by Pulse oximetry 2024-02-17 21:26:00 99 /min [facility] Systolic blood pressure 2024-01-20 13:35:00 101 mm[Hg] [facility] Diastolic blood pressure 2024-01-20 13:35:00 69 mm[Hg] [facility] Heart rate 2024-01-20 13:35:00 65 /min [facility] Body temperature 2024-01-20 13:35:00 36.94 Sandhya [facility] Body height 2024-01-20 13:35:00 170.2 cm [facility] Body weight 2024-01-20 13:35:00 98.431 kg [facility] BMI 2024-01-20 13:35:00 33.99 kg/m2 [facility] Oxygen saturation in Arterial blood by Pulse oximetry 2024-01-20 13:35:00 99 /min [facility] Systolic blood pressure 2024-01-18 20:48:00 125 mm[Hg] [facility] Diastolic blood pressure 2024-01-18 20:48:00 86 mm[Hg] [facility] Heart rate 2024-01-18 20:48:00 75 /min [facility] Body height 2024-01-18 20:48:00 170.2 cm [facility] Body weight 2024-01-18 20:48:00 97.659 kg [facility] BMI 2024-01-18 20:48:00 33.72 kg/m2 [facility] Oxygen saturation in Arterial blood by Pulse oximetry 2024-01-18 20:48:00 97 /min [facility] Systolic blood pressure 2023-11-16 17:12:00 112 mm[Hg] [facility] Diastolic blood pressure 2023-11-16 17:12:00 76 mm[Hg] [facility] Heart rate 2023-11-16 17:12:00 64 /min [facility] Body height 2023-11-16 17:12:00 170.2 cm [facility] Body weight 2023-11-16 17:12:00 100.064 kg [facility] BMI 2023-11-16 17:12:00 34.55 kg/m2 [facility] Oxygen saturation in Arterial blood by Pulse oximetry 2023-11-16 17:12:00 99 /min [facility] Systolic blood pressure 2023-11-16 14:31:00 130 mm[Hg] [facility] Diastolic blood pressure 2023-11-16 14:31:00 86 mm[Hg] [facility] Heart rate 2023-11-16 14:31:00 72 /min [facility] Body temperature 2023-11-16 14:31:00 36.5 Sandhya [facility] Respiratory rate 2023-11-16 14:31:00 18 /min [facility] Body height 2023-11-16 14:31:00 170.2 cm [facility] Body weight 2023-11-16 14:31:00 100.245 kg [facility] BMI 2023-11-16 14:31:00 34.61 kg/m2 [facility] Oxygen saturation in Arterial blood by Pulse oximetry 2023-11-16 14:31:00 100 /min [facility] Systolic blood pressure 2023-10-27 05:54:00 115 mm[Hg] [facility] Diastolic blood pressure 2023-10-27 05:54:00 78 mm[Hg] [facility] Heart rate 2023-10-27 05:54:00 70 /min [facility] Respiratory rate 2023-10-27 05:54:00 16 /min [facility] Oxygen saturation in Arterial blood by Pulse oximetry 2023-10-27 05:54:00 99 /min [facility] Body temperature 2023-10-27 03:55:00 37.11 [facility] Body height 2023-10-27 03:55:00 170.2 cm [facility] Body weight 2023-10-27 03:55:00 96.163 kg [facility] BMI 2023-10-27 03:55:00 33.20 kg/m2 [facility] Systolic blood pressure 2023-08-25 19:55:00 105 mm[Hg] [facility] Diastolic blood pressure 2023-08-25 19:55:00 68 mm[Hg] [facility] Heart rate 2023-08-25 19:55:00 80 /min [facility] Body temperature 2023-08-25 19:55:00 36.33 Sandhya [facility] Body weight 2023-08-25 19:55:00 99.882 kg [facility] BMI 2023-08-25 19:55:00 34.49 kg/m2 [facility] Systolic blood pressure 2023-08-20 19:47:00 131 mm[Hg] [facility] Diastolic blood pressure 2023-08-20 19:47:00 75 mm[Hg] [facility] Heart rate 2023-08-20 19:47:00 68 /min [facility] Body temperature 2023-08-20 19:47:00 36.56 Sandhya [facility] Respiratory rate 2023-08-20 19:47:00 17 /min [facility] Body height 2023-08-20 19:47:00 170.2 cm [facility] Body weight 2023-08-20 19:47:00 96.344 kg [facility] BMI 2023-08-20 19:47:00 33.27 kg/m2 [facility] Systolic blood pressure 2023-08-16 15:00:00 110 mm[Hg] [facility] Diastolic blood pressure 2023-08-16 15:00:00 80 mm[Hg] [facility] Heart rate 2023-08-16 15:00:00 65 /min [facility] Body height 2023-08-16 15:00:00 170.2 cm [facility] Body weight 2023-08-16 15:00:00 97.796 kg [facility] BMI 2023-08-16 15:00:00 33.77 kg/m2 [facility] Oxygen saturation in Arterial blood by Pulse oximetry 2023-08-16 15:00:00 100 /min [facility] Systolic blood pressure 2023-08-13 23:09:23 121 mm[Hg] [facility] Diastolic blood pressure 2023-08-13 23:09:23 76 mm[Hg] [facility] Heart rate 2023-08-13 23:09:23 74 /min [facility] Respiratory rate 2023-08-13 23:09:23 18 /min [facility] Oxygen saturation in Arterial blood by Pulse oximetry 2023-08-13 23:09:23 98 /min [facility] Body temperature 2023-08-13 20:34:00 36.89 Sandhya [facility] Body height 2023-08-13 20:34:00 170.2 cm [facility] Body weight 2023-08-13 20:34:00 96.616 kg [facility] BMI 2023-08-13 20:34:00 33.36 kg/m2 [facility] Systolic blood pressure 2023-07-29 20:07:00 95 mm[Hg] [facility] Diastolic blood pressure 2023-07-29 20:07:00 67 mm[Hg] [facility] Heart rate 2023-07-29 20:07:00 105 /min [facility] Body temperature 2023-07-29 20:07:00 36.28 Sandhya [facility] Body height 2023-07-29 20:07:00 170.2 cm [facility] Body weight 2023-07-29 20:07:00 96.48 kg [facility] BMI 2023-07-29 20:07:00 33.31 kg/m2 [facility] Systolic blood pressure 2023-07-14 21:36:00 95 mm[Hg] [facility] Diastolic blood pressure 2023-07-14 21:36:00 71 mm[Hg] [facility] Heart rate 2023-07-14 21:36:00 76 /min [facility] Body temperature 2023-07-14 21:36:00 36.33 Sandhya [facility] Respiratory rate 2023-07-14 21:36:00 20 /min [facility] Body height 2023-07-14 21:36:00 170.2 cm [facility] Body weight 2023-07-14 21:36:00 96.163 kg [facility] BMI 2023-07-14 21:36:00 33.20 kg/m2 [facility] Oxygen saturation in Arterial blood by Pulse oximetry 2023-07-14 21:36:00 98 /min [facility] Systolic blood pressure 2023-07-07 21:03:00 101 mm[Hg] [facility] Diastolic blood pressure 2023-07-07 21:03:00 67 mm[Hg] [facility] Heart rate 2023-07-07 21:03:00 76 /min [facility] Body temperature 2023-07-07 21:03:00 36 Sandhya [facility] Body height 2023-07-07 21:03:00 170.2 cm [facility] Body weight 2023-07-07 21:03:00 96.752 kg [facility] BMI 2023-07-07 21:03:00 33.41 kg/m2 [facility] Systolic blood pressure 2023-07-01 21:39:00 116 mm[Hg] [facility] Diastolic blood pressure 2023-07-01 21:39:00 73 mm[Hg] [facility] Heart rate 2023-07-01 21:39:00 64 /min [facility] Body temperature 2023-07-01 21:39:00 36.17 Sandhya [facility] Respiratory rate 2023-07-01 21:39:00 18 /min [facility] Body height 2023-07-01 21:39:00 170.2 cm [facility] Body weight 2023-07-01 21:39:00 95.397 kg [facility] BMI 2023-07-01 21:39:00 32.94 kg/m2 [facility] Systolic blood pressure 2023-06-23 19:21:00 101 mm[Hg] [facility] Diastolic blood pressure 2023-06-23 19:21:00 70 mm[Hg] [facility] Heart rate 2023-06-23 19:21:00 73 /min [facility] Body temperature 2023-06-23 19:21:00 36.17 Sandhya [facility] Body height 2023-06-23 19:21:00 170.2 cm [facility] Body weight 2023-06-23 19:21:00 95.255 kg [facility] BMI 2023-06-23 19:21:00 32.89 kg/m2 [facility] Systolic blood pressure 2023-06-22 14:24:00 120 mm[Hg] [facility] Diastolic blood pressure 2023-06-22 14:24:00 83 mm[Hg] [facility] Heart rate 2023-06-22 14:24:00 67 /min [facility] Respiratory rate 2023-06-22 14:24:00 12 /min [facility] Body height 2023-06-22 14:24:00 170.2 [facility] 2023-06-22 14:24:00 96.344 [facility] 2023-06-22 14:24:00 33.27 kg/m2 [facility] Oxygen saturation in Arterial blood by Pulse oximetry 2023-06-22 14:24:00 100 /min [facility] Heart rate 2023-06-22 01:45:00 84 /min [facility] in Arterial blood by Pulse oximetry 2023-06-22 01:45:00 98 /min [facility] Systolic blood pressure 2023-06-22 01:00:00 119 mm[Hg] [facility] Diastolic blood pressure 2023-06-22 01:00:00 85 mm[Hg] [facility] Respiratory rate 2023-06-22 01:00:00 16 /min [facility] Body height 2023-06-22 00:11:00 170.2 cm [facility] Body weight 2023-06-22 00:11:00 95.255 kg [facility] BMI 2023-06-22 00:11:00 32.89 kg/m2 [facility] Systolic blood pressure 2023-06-17 02:18:00 120 mm[Hg] [facility] Diastolic blood pressure 2023-06-17 02:18:00 82 mm[Hg] [facility] Heart rate 2023-06-17 02:18:00 90 /min [facility] 2023-06-17 02:18:00 37 Sandhya [facility] Respiratory rate 2023-06-17 02:18:00 16 /min [facility] Body height 2023-06-17 02:18:00 170.2 cm [facility] Body weight 2023-06-17 02:18:00 94.938 kg [facility] BMI 2023-06-17 02:18:00 32.78 kg/m2 [facility] Oxygen saturation in Arterial blood by Pulse oximetry 2023-06-17 02:18:00 98 /min [facility] Systolic blood pressure 2023-05-26 20:20:00 121 mm[Hg] [facility] Diastolic blood pressure 2023-05-26 20:20:00 85 mm[Hg] [facility] Heart rate 2023-05-26 20:20:00 71 /min [facility] Body temperature 2023-05-26 20:20:00 36.89 Sandhya [facility] Respiratory rate 2023-05-26 20:20:00 18 /min [facility] Body height 2023-05-26 20:20:00 170.2 cm [facility] Body weight 2023-05-26 20:20:00 96.253 kg [facility] BMI 2023-05-26 20:20:00 33.24 kg/m2 [facility] Oxygen saturation in Arterial blood by Pulse oximetry 2023-05-26 20:20:00 100 /min [facility] Systolic blood pressure 2023-05-10 21:05:00 123 mm[Hg] [facility] Diastolic blood pressure 2023-05-10 21:05:00 80 mm[Hg] [facility] Heart rate 2023-05-10 21:05:00 72 /min [facility] Body temperature 2023-05-10 21:05:00 36.56 Sandhya [facility] Body height 2023-05-10 21:05:00 170.2 cm [facility] Body weight 2023-05-10 21:05:00 95.391 kg [facility] BMI 2023-05-10 21:05:00 32.94 kg/m2 [facility] Systolic blood pressure 2023-05-06 17:28:00 126 mm[Hg] [facility] Diastolic blood pressure 2023-05-06 17:28:00 84 mm[Hg] [facility] Heart rate 2023-05-06 17:28:00 70 /min [facility] Respiratory rate 2023-05-06 17:28:00 20 /min [facility] Body height 2023-05-06 17:28:00 170.2 [facility] 2023-05-06 17:28:00 95.165 kg [facility] BMI 2023-05-06 17:28:00 32.86 kg/m2 [facility] Oxygen saturation in Arterial blood by Pulse oximetry 2023-05-06 17:28:00 97 /min [facility] Systolic blood pressure 2023-05-01 17:29:00 111 mm[Hg] [facility] Diastolic blood pressure 2023-05-01 17:29:00 66 mm[Hg] [facility] Heart rate 2023-05-01 17:29:00 69 /min [facility] Body temperature 2023-05-01 17:29:00 36.67 Sandhya [facility] Respiratory rate 2023-05-01 17:29:00 18 /min [facility] Oxygen saturation in Arterial blood by Pulse oximetry 2023-05-01 17:29:00 99 /min [facility] Body height 2023-04-26 11:43:00 170.2 cm [facility] Body weight 2023-04-26 11:43:00 93.6 kg [facility] BMI 2023-04-26 11:43:00 32.32 kg/m2 [facility] Systolic blood pressure 2023-04-23 21:50:00 112 mm[Hg] [facility] Diastolic blood pressure 2023-04-23 21:50:00 76 mm[Hg] [facility] Heart rate 2023-04-23 21:50:00 71 /[facility] 2023-04-23 21:50:00 16 /min [facility] Body height 2023-04-23 21:50:00 170.2 cm [facility] Body weight 2023-04-23 21:50:00 91.627 kg [facility] BMI 2023-04-23 21:50:00 31.64 kg/m2 [facility] Oxygen saturation in Arterial blood by Pulse oximetry 2023-04-23 21:50:00 99 /min [facility] Systolic blood pressure 2023-04-09 13:51:00 116 mm[Hg] [facility] Diastolic blood pressure 2023-04-09 13:51:00 79 mm[Hg] [facility] Heart rate 2023-04-09 13:51:00 81 /min [facility] Body temperature 2023-04-09 13:51:00 36.5 Sandhya [facility] Respiratory rate 2023-04-09 13:51:00 18 /min [facility] Body height 2023-04-09 13:51:00 170.2 cm [facility] Body weight 2023-04-09 13:51:00 91.082 kg [facility] BMI 2023-04-09 13:51:00 31.45 kg/m2 [facility] Oxygen saturation in Arterial blood by Pulse oximetry 2023-04-09 13:51:00 97 /min [facility] Systolic blood pressure 2023-04-09 13:51:00 116 mm[Hg] [facility] Diastolic blood pressure 2023-04-09 13:51:00 79 mm[Hg] [facility] Heart rate 2023-04-09 13:51:00 81 /min [facility] Body temperature 2023-04-09 13:51:00 36.5 Sandhya [facility] Respiratory rate 2023-04-09 13:51:00 18 /min [facility] Body height 2023-04-09 13:51:00 170.2 cm [facility] Body weight 2023-04-09 13:51:00 91.082 kg [facility] BMI 2023-04-09 13:51:00 31.45 kg/m2 [facility] Oxygen saturation in Arterial blood by Pulse oximetry 2023-04-09 13:51:00 97 /min [facility] Systolic blood pressure 2023-04-07 18:48:00 111 mm[Hg] [facility] Diastolic blood pressure 2023-04-07 18:48:00 74 mm[Hg] [facility] Heart rate 2023-04-07 18:48:00 87 /min [facility] Body temperature 2023-04-07 18:48:00 36.67 Sandhya [facility] Respiratory rate 2023-04-07 18:48:00 18 /min [facility] Body height 2023-04-07 18:48:00 170.2 cm [facility] Body weight 2023-04-07 18:48:00 89.812 kg [facility] BMI 2023-04-07 18:48:00 31.01 kg/m2 [facility] Oxygen saturation in Arterial blood by Pulse oximetry 2023-04-07 18:48:00 100 /min [facility] Systolic blood pressure 2023-04-05 18:56:00 124 mm[Hg] [facility] Diastolic blood pressure 2023-04-05 18:56:00 79 mm[Hg] [facility] Heart rate 2023-04-05 18:56:00 81 /min [facility] Body temperature 2023-04-05 18:56:00 35.83 Sandhya [facility] Respiratory rate 2023-04-05 18:56:00 20 /min [facility] Body height 2023-04-05 18:56:00 170.2 cm [facility] Body weight 2023-04-05 18:56:00 90.855 kg [facility] BMI 2023-04-05 18:56:00 31.37 kg/m2 [facility] Systolic blood pressure 2023-01-26 04:00:00 119 mm[Hg] [facility] Diastolic blood pressure 2023-01-26 04:00:00 74 mm[Hg] [facility] Heart rate 2023-01-26 04:00:00 75 /min [facility] Respiratory rate 2023-01-26 04:00:00 12 /min [facility] Oxygen saturation in Arterial blood by Pulse oximetry 2023-01-26 04:00:00 99 /min [facility] Body temperature 2023-01-26 01:59:00 37.28 Sandhya [facility] Body height 2023-01-26 01:59:00 170.2 cm [facility] Body weight 2023-01-26 01:59:00 90.719 kg [facility] BMI 2023-01-26 01:59:00 31.32 kg/m2 [facility] Systolic blood pressure 2023-01-18 19:36:00 122 mm[Hg] [facility] Diastolic blood pressure 2023-01-18 19:36:00 83 mm[Hg] [facility] Heart rate 2023-01-18 19:36:00 75 /min [facility] Body temperature 2023-01-18 19:36:00 36.83 Sandhya [facility] Respiratory rate 2023-01-18 19:36:00 16 /min [facility] Body height 2023-01-18 19:36:00 170.2 cm [facility] Body weight 2023-01-18 19:36:00 91.581 kg [facility] BMI 2023-01-18 19:36:00 31.62 kg/m2 [facility] Oxygen saturation in Arterial blood by Pulse oximetry 2023-01-18 19:36:00 99 /min [facility] Systolic blood pressure 2023-01-18 15:43:00 113 mm[Hg] [facility] Diastolic blood pressure 2023-01-18 15:43:00 73 mm[Hg] [facility] Heart rate 2023-01-18 15:43:00 75 /min [facility] Body temperature 2023-01-18 15:43:00 35.67 Sandhya [facility] Respiratory rate 2023-01-18 15:43:00 17 /min [facility] Body height 2023-01-18 15:43:00 170.2 cm [facility] Body weight 2023-01-18 15:43:00 90.538 kg [facility] BMI 2023-01-18 15:43:00 31.26 kg/m2 [facility] Systolic blood pressure 2023-01-09 18:15:00 86 mm[Hg] [facility] Diastolic blood pressure 2023-01-09 18:15:00 50 mm[Hg] [facility] Heart rate 2023-01-09 18:15:00 77 /min [facility] Body temperature 2023-01-09 18:15:00 36.83 Sandhya [facility] Respiratory rate 2023-01-09 18:15:00 18 /min [facility] Oxygen saturation in Arterial blood by Pulse oximetry 2023-01-09 18:15:00 99 /min [facility] Body height 2023-01-09 05:47:00 170.2 cm [facility] Body weight 2023-01-09 05:47:00 90.719 kg [facility] BMI 2023-01-09 05:47:00 31.32 kg/m2 [facility] Systolic blood pressure 2023-01-08 22:52:00 112 mm[Hg] [facility] Diastolic blood pressure 2023-01-08 22:52:00 65 mm[Hg] [facility] Heart rate 2023-01-08 22:52:00 107 /min [facility] Body temperature 2023-01-08 22:52:00 36.72 Sandhya [facility] Respiratory rate 2023-01-08 22:52:00 18 /min [facility] Oxygen saturation in Arterial blood by Pulse oximetry 2023-01-08 22:52:00 100 /min [facility] Body height 2023-01-08 15:28:00 170.2 cm [facility] Body weight 2023-01-08 15:28:00 90.719 kg [facility] BMI 2023-01-08 15:28:00 31.32 kg/m2 [facility] Systolic blood pressure 2023-01-04 14:17:00 110 mm[Hg] [facility] Diastolic blood pressure 2023-01-04 14:17:00 71 mm[Hg] [facility] Heart rate 2023-01-04 14:17:00 73 /min [facility] Body temperature 2023-01-04 14:17:00 36.39 Sandhya [facility] Respiratory rate 2023-01-04 14:17:00 20 /min [facility] Body height 2023-01-04 14:17:00 170.2 cm [facility] Body weight 2023-01-04 14:17:00 90.81 kg [facility] BMI 2023-01-04 14:17:00 31.36 kg/m2 [facility] Systolic blood pressure 2023-01-02 05:49:00 112 mm[Hg] [facility] Diastolic blood pressure 2023-01-02 05:49:00 72 mm[Hg] [facility] Heart rate 2023-01-02 05:49:00 77 /min [facility] Respiratory rate 2023-01-02 05:49:00 16 /min [facility] Oxygen saturation in Arterial blood by Pulse oximetry 2023-01-02 05:49:00 100 /min [facility] Body temperature 2023-01-02 05:34:00 36.61 Sandhya [facility] Body height 2023-01-02 03:54:00 162.6 cm [facility] Body weight 2023-01-02 03:54:00 89.812 kg [facility] BMI 2023-01-02 03:54:00 33.99 kg/m2 [facility] Systolic blood pressure 2022-12-21 15:58:00 110 mm[Hg] [facility] Diastolic blood pressure 2022-12-21 15:58:00 68 mm[Hg] [facility] Heart rate 2022-12-21 15:58:00 75 /min [facility] Body temperature 2022-12-21 15:58:00 36.39 Sandhya [facility] Respiratory rate 2022-12-21 15:58:00 18 /min [facility] Body height 2022-12-21 15:58:00 170.2 cm [facility] Body weight 2022-12-21 15:58:00 89.54 kg [facility] BMI 2022-12-21 15:58:00 30.92 kg/m2 [facility] Oxygen saturation in Arterial blood by Pulse oximetry 2022-12-21 15:58:00 100 /min [facility] Systolic blood pressure 2022-12-11 15:46:00 107 mm[Hg] [facility] Diastolic blood pressure 2022-12-11 15:46:00 64 mm[Hg] [facility] Heart rate 2022-12-11 15:46:00 74 /min [facility] Body temperature 2022-12-11 15:46:00 35.89 Sandhya [facility] Respiratory rate 2022-12-11 15:46:00 18 /min [facility] Body height 2022-12-11 15:46:00 170.2 cm [facility] Body weight 2022-12-11 15:46:00 88.225 kg [facility] BMI 2022-12-11 15:46:00 30.46 kg/m2 [facility] Systolic blood pressure 2022-12-09 16:23:00 119 mm[Hg] [facility] Diastolic blood pressure 2022-12-09 16:23:00 70 mm[Hg] [facility] Heart rate 2022-12-09 16:23:00 65 /min [facility] Body temperature 2022-12-09 16:23:00 36.83 Sandhya [facility] Respiratory rate 2022-12-09 16:23:00 18 /min [facility] Body height 2022-12-09 16:23:00 170.2 cm [facility] Body weight 2022-12-09 16:23:00 89.982 kg [facility] BMI 2022-12-09 16:23:00 31.07 kg/m2 [facility] Systolic blood pressure 2022-11-12 20:14:00 128 mm[Hg] [facility] Diastolic blood pressure 2022-11-12 20:14:00 75 mm[Hg] [facility] Heart rate 2022-11-12 20:14:00 67 /min [facility] Body temperature 2022-11-12 20:14:00 36.67 Sandhya [facility] Respiratory rate 2022-11-12 20:14:00 20 /min [facility] Body height 2022-11-12 20:14:00 170.2 cm [facility] Body weight 2022-11-12 20:14:00 88.962 kg [facility] BMI 2022-11-12 20:14:00 30.72 kg/m2 [facility] Systolic blood pressure 2022-10-22 20:14:00 112 mm[Hg] [facility] Diastolic blood pressure 2022-10-22 20:14:00 74 mm[Hg] [facility] Heart rate 2022-10-22 20:14:00 72 /min [facility] Body temperature 2022-10-22 20:14:00 36.67 Sandhya [facility] Respiratory rate 2022-10-22 20:14:00 18 /min [facility] Body weight 2022-10-22 20:14:00 88.451 kg [facility] BMI 2022-10-22 20:14:00 30.54 kg/m2 [facility] Systolic blood pressure 2022-09-28 13:01:00 104 mm[Hg] [facility] Diastolic blood pressure 2022-09-28 13:01:00 63 mm[Hg] [facility] Heart rate 2022-09-28 13:01:00 75 /min [facility] Body temperature 2022-09-28 13:01:00 36.72 Sandhya [facility] Respiratory rate 2022-09-28 13:01:00 18 /min [facility] Oxygen saturation in Arterial blood by Pulse oximetry 2022-09-28 13:01:00 100 /min [facility] Body weight 2022-09-26 22:36:00 88.451 kg [facility] BMI 2022-09-26 22:36:00 30.54 kg/m2 [facility] Respiratory rate 2022-09-28 02:10:00 10 /min [facility] Oxygen saturation in Arterial blood by Pulse oximetry 2022-09-28 02:10:00 100 /min [facility] Systolic blood pressure 2022-09-28 02:08:00 116 mm[Hg] [facility] Diastolic blood pressure 2022-09-28 02:08:00 76 mm[Hg] [facility] Body temperature 2022-09-28 01:42:00 36.67 Sandhya [facility] Heart rate 2022-09-28 00:40:00 72 /min [facility] Body weight 2022-09-26 22:36:00 88.451 kg [facility] BMI 2022-09-26 22:36:00 30.54 kg/m2 [facility] Systolic blood pressure 2022-09-24 05:00:00 118 mm[Hg] [facility] Diastolic blood pressure 2022-09-24 05:00:00 87 mm[Hg] [facility] Heart rate 2022-09-24 05:00:00 78 /min [facility] Respiratory rate 2022-09-24 05:00:00 20 /min [facility] Oxygen saturation in Arterial blood by Pulse oximetry 2022-09-24 05:00:00 100 /min [facility] Body temperature 2022-09-24 03:13:00 37.78 Sandhya [facility] Body height 2022-09-24 03:13:00 170.2 cm [facility] Body weight 2022-09-24 03:13:00 88.86 kg [facility] BMI 2022-09-24 03:13:00 30.68 kg/m2 [facility] Systolic blood pressure 2022-09-23 21:15:00 114 mm[Hg] [facility] Diastolic blood pressure 2022-09-23 21:15:00 74 mm[Hg] [facility] Heart rate 2022-09-23 21:15:00 76 /min [facility] Body temperature 2022-09-23 21:15:00 36.56 Sandhya [facility] Respiratory rate 2022-09-23 21:15:00 18 /min [facility] Body height 2022-09-23 21:15:00 170.2 cm [facility] Body weight 2022-09-23 21:15:00 89.495 kg [facility] BMI 2022-09-23 21:15:00 30.90 kg/m2 [facility] Systolic blood pressure 2022-08-11 21:40:00 125 mm[Hg] [facility] Diastolic blood pressure 2022-08-11 21:40:00 76 mm[Hg] [facility] Heart rate 2022-08-11 21:40:00 71 /min [facility] Body temperature 2022-08-11 21:40:00 36.44 Sandhya [facility] Respiratory rate 2022-08-11 21:40:00 17 /min [facility] Body height 2022-08-11 21:40:00 170.2 cm [facility] Body weight 2022-08-11 21:40:00 86.864 kg [facility] BMI 2022-08-11 21:40:00 29.99 kg/m2 [facility] Respiratory rate 2022-04-27 08:02:00 18 /min [facility] Body height 2022-04-27 08:02:00 170.2 cm [facility] Body weight 2022-04-27 08:02:00 91.173 kg [facility] BMI 2022-04-27 08:02:00 31.48 kg/m2 [facility] Oxygen saturation in Arterial blood by Pulse oximetry 2022-04-27 08:02:00 99 /min [facility] Systolic blood pressure 2022-04-27 08:02:00 121 mm[Hg] [facility] Diastolic blood pressure 2022-04-27 08:02:00 82 mm[Hg] [facility] Heart rate 2022-04-27 08:02:00 85 /min [facility] Body temperature 2022-04-27 08:02:00 37.06 Sandhya [facility] Systolic blood pressure 2022-04-18 16:19:00 103 mm[Hg] [facility] Diastolic blood pressure 2022-04-18 16:19:00 69 mm[Hg] [facility] Heart rate 2022-04-18 16:19:00 84 /min [facility] Body temperature 2022-04-18 16:19:00 36.5 Sandhya [facility] Respiratory rate 2022-04-18 16:19:00 20 /min [facility] Body height 2022-04-18 16:19:00 170.2 cm [facility] Body weight 2022-04-18 16:19:00 91.491 kg [facility] BMI 2022-04-18 16:19:00 31.59 kg/m2 [facility] Systolic blood pressure 2022-04-02 18:22:00 122 mm[Hg] [facility] Diastolic blood pressure 2022-04-02 18:22:00 73 mm[Hg] [facility] Heart rate 2022-04-02 18:22:00 74 /min [facility] Body temperature 2022-04-02 18:22:00 36 Sandhya [facility] Respiratory rate 2022-04-02 18:22:00 18 /min [facility] Body height 2022-04-02 18:22:00 170.2 cm [facility] Body weight 2022-04-02 18:22:00 92.59 kg [facility] BMI 2022-04-02 18:22:00 31.97 kg/m2 [facility] Procedures Procedure Date / Time Performed Performing Clinician Source XR KUB 2024-05-09 22:53:06 Vasiliy Sotomayor [facility] COLONOSCOPY (ENDO) 2024-05-09 20:11:47 Thais Marin [facility] COLONOSCOPY (ENDO) 2024-05-09 20:11:47 Thais Marin [facility] EGD (ENDO) 2024-05-09 20:06:13 Thais Marin [facility] EGD (ENDO) 2024-05-09 20:06:13 Thais Marin [facility] ESOPHAGOGASTRODUODENOSCOPY 2024-05-09 19:02:00 Ry Forman [facility] COLONOSCOPY 2024-05-09 19:02:00 Ry Forman [facility] POCT TEST 2024-05-09 00:00:00 Jami Maher [facility] POCT TEST 2024-05-09 00:00:00 Jami Maher [facility] POCT MOLECULAR STREP 2024-02-17 21:45:00 Unknown, Attending [facility] POCT SARS-COV-2 ANTIGEN (BIN AX NOW) 2024-02-17 21:27:00 Clary Richmond [facility] POCT TEST 2024-01-20 00:00:00 Thais Marin [facility] REFERRAL- REQUEST/RESPONSE 2023-11-12 18:24:24 Doctor Unassigned, Foss [facility] POCT TEST 2023-08-20 19:56:00 Pete Owens [facility] ASSIGNMENT OF BENEFITS 2023-08-13 22:13:19 Doctor Unassigned, Foss [facility] COMP. METABOLIC PANEL ([id number]) 2023-08-13 21:08:00 Bogdan Gabriel [facility] TOTAL BETA HCG ASSAY 2023-08-13 21:08:00 Bogdan Gabriel [facility] CBC WITH DIFF 2023-08-13 21:08:00 Bogdan Gabriel [facility] URINALYSIS 2023-08-13 21:08:00 Bogdan Gabriel [facility] HB ABO GROUPING 2023-08-13 21:08:00 Bogdan Gabriel [facility] CONSENT/REFUSAL FOR DIAGNOSI S AND TREATMENT 2023-08-13 20:17:50 Doctor Unassigned, Foss [facility] C-REACTIVE PROTEIN 2023-07-29 20:37:00 Mariama Carrera [facility] COMP. METABOLIC PANEL ([id number]) 2023-07-29 20:37:00 Mariama Carrera [facility] SEDIMENTATION RATE 2023-07-29 20:37:00 Mariama Carrera [facility] CBC WITH DIFF 2023-07-29 20:37:00 Mariama Carrera [facility] URINALYSIS 2023-07-29 20:37:00 Mariama Carrera [facility] EXTERNAL PROVIDER RECORDS 2023-07-23 06:01:00 Doctor Unassigned, Foss [facility] URINE CULTURE 2023-07-01 21:55:00 Tawana Jean [facility] GALV ONLY - VAGINAL PATHOGEN S BY NUCLEIC ACID TESTING 2023-07-01 21:55:00 Tawana Jean [facility] POCT URINALYSIS 2023-07-01 21:39:00 Pete Owens [facility] CONSENT/REFUSAL FOR DIAGNOSI S AND TREATMENT 2023-06-22 00:07:05 Doctor Unassigned, Foss [facility] SLEEP STUDY DATA REPORT 2023-06-03 06:01:00 Doctor Unassigned, Foss [facility] US PELVIS COMPLETE WITH TRANSVAGINAL 2023-05-18 20:38:21 Abby Jordan [facility] MAGNESIUM 2023-05-01 10:09:00 Kathy Esquivel [facility] BASIC METABOLIC PANEL (NA, K , CL, CO2, GLUCOSE, BUN, CREATININE, CA) 2023-05-01 10:09:00 Kathy Esquivel [facility] CBC WITHOUT DIFF 2023-05-01 10:09:00 Kathy Esquivel [facility] MAGNESIUM 2023-04-30 11:12:00 Kathy Esquivel [facility] HEPATIC FUNCTION PANEL ([id number]) (ALB,T.PRO,BILI T,BU/BC,ALT,AST,ALK PHOS) 2023-04-30 11:12:00 Kathy Esquivel [facility] BASIC METABOLIC PANEL (NA, K , CL, CO2, GLUCOSE, BUN, CREATININE, CA) 2023-04-30 11:12:00 Kathy Esquivel [facility] CBC WITHOUT DIFF 2023-04-30 11:12:00 Kathy Esquivel [facility] PROTHROMBIN TIME / INR 2023-04-30 11:12:00 Kathy Esquivel [facility] MR VENOGRAM HEAD W WO CONTRAST 2023-04-21 0 03:22:57 Ivonne Lozano [facility] MR BRAIN W WO CONTRAST 2023-04-30 03:21[facility] 2023-04-28 00:16:00 Devonte Veronica Tanja [facility] COVID-19 (ID NOW RAPID TESTING) 22:03:00 Devonte Veronica [facility] LAB ONLY COVID INTERPRETATION 2023-04-27 22:03:00 Devonte Veronica Tanja [facility] BASIC METABOLIC PANEL (NA, K , CL, CO2, GLUCOSE, BUN, CREATININE, CA) 2023-04-27 15:27:00 Ivonne Lozano [facility] CBC WITH DIFF 2023-04-27 15:27:00 Marta [facility] ELECTROENCEPHALOGRAM 2023-04-27 00:00:00 Marta [facility] CREATINE KINASE 2023-04-26 22:35:00 Devonte Veronica Tanja [facility] CT HEAD WO CONTRAST 2023-04-26 22:24:07 Devonte Veronica Tanja [facility] SURGICAL PATHOLOGY EXAM 2023-04-26 14:16:00 Bandar Baca [facility] HYSTEROSCOPY WITH DILATATION AND CURETTAGE 2023-04-26 13:06:00 Bandar Baca [facility] CBC WITH DIFF 2023-04-26 11:59:00 Tono Taylor [facility] HB ABO GROUPING 2023-04-26 11:59:00 Claudio Goldsmith [facility] POCT TEST 2023-04-26 11:40:00 Loreto Oconnell [facility] CONSENT/REFUSAL FOR DIAGNOSI S AND TREATMENT 2023-04-26 11:37:09 Doctor Unassigned, Foss [facility] ASSIGNMENT OF BENEFITS 2023-04-26 11:34:48 Doctor Unassigned, Foss [facility] URINALYSIS 2023-04-09 16:16:00 [facility] CREATINE KINASE 2023-04-09 15:50:00 [facility] C-REACTIVE PROTEIN 2023-04-09 15:50:00 [facility] C4 COMPLEMENT 2023-04-09 15:50:00 [facility] IRON PANEL 2023-04-09 15:50:00 [facility] G6PD SCREENING TEST 2023-04-09 15:50:00 [facility] VITAMIN D, 25-OH 2023-04-09 15:50:00 [facility] QUANTIFERON-TB ASSAY 2023-04-09 15:50:00 [facility] THIOPURINE METHYLTRANSFERASE, RBC 2022-0620 15:50:00 [facility] ANTI-SSA(RO) 2023-04-09 15:50:00 [facility] ANTI-DOUBLE STRANDED DNA 2023-04-09 15:50:00 [facility] QFT TB2 MINUS NIL 2023-04-09 15:50:00 [facility] LUPUS ANTICOAGULANT REFLEXIV E PANEL 2023-04-09 15:50:00 [facility] FERRITIN SERUM 2023-04-07 19:38:00 [facility] RHEUMATOID FACTOR 2023-04-07 19:38:00 Thais Marin [facility] COMP. METABOLIC PANEL ([id number]) 2023-04-07 19:38:00 Thais Marin [facility] SEDIMENTATION RATE 2023-04-07 19:38:00 Thais Marin [facility] CBC WITH DIFF 2023-04-07 19:38:00 Thais Marin [facility] ANTI-NUCLEAR ANTIBODY SCREEN 2023-04-07 19:38:00 Thais Marin [facility] HEPATITIS B SURFACE ANTIGEN 2023-04-07 19:38:00 Thais Marin [facility] HCV ANTIBODY 2023-04-07 19:38:00 Thais Marin [facility] GC & CHLAMYDIA AMPLIFIED ASSAY 2023-03-21 8 19:38:00 Thais Marin [facility] HSV 1 AND 2 GLYCOPROTEIN G IGG 2023-03-21 8 19:38:00 Thais Marin [facility] ADC OR ZACHARY ONLY - RPR 2023-04-07 19:38:00 Thais Marin [facility] HIV 1/2 AG-AB WITH REFLEX 2023-04-07 19:38:00 Thais Marin [facility] TRICHOMONAS AMPLIFIED ASSAY 2023-04-07 19:38:00 Thais Marin [facility] FERRITIN SERUM 2023-04-07 19:38:00 Jose Craig [facility] EKG-12 LEAD 2023-01-26 04:19:59 Gaurav John [facility] CT ABDOMEN PELVIS WO CONTRAST 2023-01-26 03:13:00 Gaurav John [facility] LIPASE 2023-01-26 02:21:00 Gaurav John [facility] COMP. METABOLIC PANEL ([id number]) 2023-01-26 02:21:00 Gaurav John [facility] CBC WITH DIFF 2023-01-26 02:21:00 Gaurav John [facility] URINALYSIS 2023-01-26 02:05:00 Gaurav John [facility] POCT TEST 2023-01-26 02:03:00 Gaurav John [facility] NOTICE OF PRIVACY PRACTICES 2023-01-26 01:50:27 Doctor Unassigned, Foss [facility] CONSENT/REFUSAL FOR DIAGNOSI S AND TREATMENT 2023-01-26 01:49:25 Doctor Unassigned, Foss [facility] ASSIGNMENT OF BENEFITS 2023-01-18 21:28:15 Doctor Unassigned, Foss [facility] CONSENT/REFUSAL FOR DIAGNOSI S AND TREATMENT 2023-01-18 19:32:06 Doctor Unassigned, Foss [facility] POCT TEST 2023-01-18 17:54:00 Bandar Baca [facility] CBC WITH DIFF 2023-01-09 08:24:00 Adum, Mariajose Gudino [facility] CBC WITH DIFF 2023-01-09 08:24:00 Adum, Mariajose Gudino [facility] CBC WITHOUT DIFF 2023-01-09 04:08:00 Adum, Mariajose Gudino [facility] CBC WITHOUT DIFF 2023-01-09 04:08:00 Adum, Mariajose Gudino [facility] US PELVIS LIMITED 2023-01-09 01:57:00 Adum, Mariajose Gudino [facility] US PELVIS LIMITED 2023-01-09 01:57:00 Adum, Mariajose Gudino [facility] DILATION AND CURETTAGE 2023-01-09 00:05:00 Adum, Mariajose Gudino [facility] HYSTEROSCOPY 2023-01-09 00:05:00 Adum, Mariajose Gudino [facility] DIAGNOSTIC LAPAROSCOPY 2023-01-09 00:05:00 Adum, Mariajose Gudino [facility] LAPAROSCOPIC LYSIS OF ADHESIONS 00:05:00 Adum, Mariajose Gudino [facility] LAPAROSCOPIC OVARIAN CYST ASPIRATION 2023-01-09 00:05:00 Adum, Mariajose Gudino [facility] URINALYSIS 2023-01-08 16:47:00 Clary Richmond [facility] URINALYSIS 2023-01-08 16:47:00 Clary Richmond [facility] LIPASE 2023-01-08 16:01:00 Basilio [facility] COMP. METABOLIC PANEL ([id number]) 2023-01-08 16:01:00 Basilio [facility] TOTAL BETA HCG ASSAY 2023-01-08 16:01:00 Adum, Mariajose Shahab [facility] CBC WITH DIFF 2023-01-08 16:01:00 Basilio [facility] HB ABO GROUPING 2023-01-08 16:01:00 Ebraphilomena [facility] LIPASE 2023-01-08 16:01:00 Basilio [facility] COMP. METABOLIC PANEL ([id number]) 2023-01-08 16:01:00 Basilio [facility] TOTAL BETA HCG ASSAY 2023-01-08 16:01:00 Adum, Mariajose Shahab [facility] CBC WITH DIFF 2023-01-08 16:01:00 Ebjennifer [facility] HB ABO GROUPING 2023-01-08 16:01:00 Basilio [facility] CONSENT/REFUSAL FOR DIAGNOSI S AND TREATMENT 2023-01-08 15:23:42 Doctor Unassigned, Foss [facility] CONSENT/REFUSAL FOR DIAGNOSI S AND TREATMENT 2023-01-08 15:23:42 Doctor Unassigned, Foss [facility] DAY SURGERY - ADC 2023-01-08 05:01:00 Doctor Unassigned, Foss [facility] COMP. METABOLIC PANEL ([id number]) 2023-01-02 04:08:00 Gaurav John [facility] CBC WITH DIFF 2023-01-02 04:08:00 Gaurav John [facility] URINALYSIS 2023-01-02 04:08:00 Gaurav John [facility] HB ABO GROUPING 2023-01-02 04:08:00 Gaurav John [facility] NOTICE OF PRIVACY PRACTICES 2023-01-02 03:45:21 Doctor Unassigned, Foss [facility] CONSENT/REFUSAL FOR DIAGNOSI S AND TREATMENT 2023-01-02 03:41:52 Doctor Unassigned, Foss [facility] TOTAL BETA HCG ASSAY 2023-01-01 22:12:00 Wilbur Wilson [facility] POCT URINALYSIS 2022-12-21 16:05:00 Pete Owens [facility] AUTHORIZATION TO RELEASE PHI TO [facility] 2022-12-21 05:01:00 Doctor Unassigned, Foss [facility] POCT URINALYSIS W/O SPECIFIC GRAVITY 2022-12-11 15:38:00 Pete Owens [facility] POCT TEST 2022-12-11 15:37:00 Pete Owens [facility] POCT TEST 2022-12-09 17:56:00 Tawana Jean [facility] POCT URINALYSIS W/O SPECIFIC GRAVITY 2022-12-09 16:24:00 Tawana Jean [facility] REPORT OF 2022-12-09 05:01:00 Doctor Unassigned, Foss [facility] POCT TEST 2022-10-22 20:16:00 Tawana Jean [facility] PATIENT FINANCIAL POLICY 2022-10-22 20:09:06 Doctor Unassigned, Foss [facility] XR ANKLE <3 VW LEFT 2022-09-28 16:20:43 Dara Renosol [facility] XR ANKLE <3 VW LEFT 2022-09-28 16:20:43 Dara Renosol [facility] DILATION AND CURETTAGE 2022-09-28 00:56:00 Dara Renosol [facility] DILATION AND CURETTAGE 2022-09-28 00:56:00 Dara Renosol [facility] FIRST TRIMESTER LESS THAN 14 WEEKS WITH TRANSVAGINAL 2022-09-27 02:21:11 Winifred James [facility] FIRST TRIMESTER LESS THAN 14 WEEKS WITH TRANSVAGINAL 2022-09-27 02:21:11 Winifred James [facility] COMP. METABOLIC PANEL ([id number]) 2022-09-26 23:14:00 Winifred James [facility] TOTAL BETA HCG ASSAY 2022-09-26 23:14:00 Winifred James [facility] CBC WITH DIFF 2022-09-26 23:14:00 Winifred James [facility] PROTHROMBIN TIME / INR 2022-09-26 23:14:00 Winifred James [facility] COMP. METABOLIC PANEL ([id number]) 2022-09-26 23:14:00 Winifred James [facility] TOTAL BETA HCG ASSAY 2022-09-26 23:14:00 Winifred James [facility] CBC WITH DIFF 2022-09-26 23:14:00 Winifred James [facility] PROTHROMBIN TIME / INR 2022-09-26 23:14:00 Winifred James [facility] CONSENT/REFUSAL FOR DIAGNOSI S AND TREATMENT 2022-09-26 22:23:31 Doctor Unassigned, Foss [facility] CONSENT/REFUSAL FOR DIAGNOSI S AND TREATMENT 2022-09-26 22:23:31 Doctor Unassigned, Foss [facility] FIRST TRIMESTER LESS THAN 14 WEEKS WITH TRANSVAGINAL 2022-09-24 06:22:21 Ariana Castro [facility] POCT TEST 2022-09-24 04:43:00 Paige Melissa [facility] BASIC METABOLIC PANEL (NA, K , CL, CO2, GLUCOSE, BUN, CREATININE, CA) 2022-09-24 04:20:00 Ariana Castro [facility] TOTAL BETA HCG ASSAY 2022-09-24 04:20:00 Ariana Castro [facility] CBC WITH DIFF 2022-09-24 04:20:00 Ariana Castro [facility] ASSIGNMENT OF BENEFITS 2022-09-24 03:31:15 Doctor Unassigned, Foss [facility] CONSENT/REFUSAL FOR DIAGNOSI S AND TREATMENT 2022-09-24 03:08:55 Doctor Unassigned, Foss [facility] POCT URINALYSIS 2022-09-23 21:19:00 Tawana Jean [facility] POCT TEST 2022-08-11 21:40:00 Tawana Jean [facility] REPORT OF 2022-08-11 06:01:00 Doctor Unassigned, Foss [facility] POCT URINALYSIS W/O SPECIFIC GRAVITY 2022-08-11 00:00:00 Tawana Jean [facility] CBC WITH DIFF 2022-04-27 08:22:00 Paige Melissa [facility] POCT TEST 2022-04-27 08:22:00 Paige Melissa [facility] NOTICE OF PRIVACY PRACTICES 2022-04-27 07:55:47 Doctor Unassigned, Foss [facility] CONSENT/REFUSAL FOR DIAGNOSI S AND TREATMENT 2022-04-27 07:54:13 Doctor Unassigned, Foss [facility] EXTERNAL PROVIDER RECORDS 2022-04-03 05:01:00 Doctor Unassigned, Foss [facility] POCT TEST 2022-04-02 19:31:00 Louise Prado [facility] THYROID STIMULATING HORMONE 2022-04-02 19:05:00 Louise Prado [facility] Encounters Start Date/Time End Date/Time Encounter Type Admission Type Attending [facility] Care Department Encounter ID Source 2023-12-21 14:16:00 Outpatient [facility] [id number] [facility] 2023-10-29 10:17:01 Outpatient [facility] [id number] [facility] 2023-01-04 10:43:39 Outpatient BANDAR ELLIS [facility] 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 [id number] [facility] 2021-04-22 01:27:59 Emergency [facility] [id number] [facility] 2021-04-21 19:32:10 Emergency [facility] [id number] [facility] 2021-04-18 21:43:36 Emergency [facility] [id number] [facility] 2024-05-16 00:00:00 2024-06-17 18:16:40 Patient Secure Msg Thais Marin [facility] 1.2840.114 350.1.13.10 4.2.7.2.686 [id number] [facility] 2024-06-16 00:00:00 2024-06-16 10:52:06 Telephone Sacha Lowe [facility] 1.840.114 350.1.13.10 4.2.7.2.686 [id number] [facility] 2024-05-08 00:00:00 2024-06-10 18:18:00 Patient Secure Msg Doctor Unassigned, Foss Doctor Unassigned, Foss [facility] 1.2840.114 350.1.13.10 4.2.7.2.686 [id number] [facility] 2024-06-07 00:00:00 2024-06-08 10:47:02 Telephone Juan Reece [facility] 1.2.840.114 350.1.13.10 4.2.7.2.686 [id number] [facility] 2024-06-01 00:00:00 2024-06-07 17:00:30 Patient Secure Msg Juan Reece [facility] 1.2840.114 350.1.13.10 4.2.7.2.686 [id number] [facility] 2024-06-07 00:00:00 2024-06-07 00:00:00 Outpatient LUANN WALL [facility] [id number] [facility] 2024-05-29 00:00:00 2024-05-29 00:00:00 Outpatient R LUANN DUMONT [facility] [id number] [facility] 2024-05-25 00:00:00 2024-05-25 15:04:31 Specialty Pharmacy Cari Martinez [facility] [place] 1.2840.114 350.1.13.10 4.2.7.2.686 [id number] [facility] 2024-05-25 13:00:00 2024-05-25 14:04:09 Outpatient R LUANN DUMONT [facility] [id number] [facility] 2024-05-25 13:00:00 2024-05-25 14:04:09 Office Visit DumontLuann [facility] 1.2840.114 350.1.13.10 4.2.7.2.686 [id number] [facility] 2024-05-24 16:30:00 2024-05-24 16:30:00 Outpatient R TANIATHAIS [facility] [id number] [facility] 2024-05-11 00:00:00 2024-05-11 17:37:27 Refill Pipes, [facility] MEDICAL OFFICE BUILDING 1.2840.114 350.1.13.10 4.2.7.2.686 [id number] [facility] 2024-05-09 17:02:00 2024-05-09 18:08:00 Emergency X COOKIE MELGAR JOHNNA [facility] ERT [id number] [facility] 2024-05-09 17:02:00 2024-05-09 18:08:00 Emergency Cookie Melgar [facility] ([facility] 1.2840.114 350.1.13.10 4.2.7.2.686 [id number] [facility] 2024-05-09 10:54:00 2024-05-09 16:43:00 Outpatient R RY FORMAN [facility] GIE [id number] [facility] 2024-05-09 10:54:00 2024-05-09 16:43:00 Hospital Encounter Ry Forman [facility] 1.2.840.114 350.1.13.10 4.2.7.2.686 [id number] [facility] 2024-05-09 11:45:00 2024-05-09 12:45:00 Surgery Ry Forman [facility]ENC[facility] 1.2.840.114 350.1.13.10 4.2.7.2.686 [id number] [facility] 2024-04-22 00:00:00 2024-04-23 02:02:21 Mobile Device Encounter Sarah [facility] MEDICAL OFFICE BUILDING 1.2.840.114 350.1.13.10 4.2.7.2.686 [id number] [facility] 2024-04-18 00:00:00 2024-04-18 11:19:09 Telephone Tawnya Gan [facility] ([facility]) 1.2.840.114 350.1.13.10 4.2.7.2.686 [id number] [facility] 2024-04-13 09:00:00 2024-04-13 10:00:00 Office Visit Sarah [facility] MEDICAL OFFICE BUILDING 1.2.840.114 350.1.13.10 4.2.7.2.686 [id number] [facility] 2024-04-13 09:00:00 2024-04-13 09:00:00 Outpatient R SARAH [facility] [id number] [facility] 2024-04-11 00:00:00 2024-04-11 10:53:01 Telephone Tawnya Gan [facility] ([facility]) 1.2.840.114 350.1.13.10 4.2.7.2.686 [id number] [facility] 2024-04-04 00:00:00 2024-04-04 12:42:55 Specialty Pharmacy Shandra Green Ashley M [facility] 1.2.840.114 350.1.13.10 4.2.7.2.686 [id number] [facility] 2024-04-04 00:00:00 2024-04-04 12:38:29 Specialty Pharmacy Shandra Green Ashley M [facility] 1.2.840.114 350.1.13.10 4.2.7.2.686 [id number] [facility] 2024-04-04 10:30:00 2024-04-04 10:30:00 Outpatient LUDY MENJIVAR [facility] [id number] [facility] 2024-04-04 00:00:00 2024-04-04 09:00:54 Specialty Pharmacy Azalea Dotson Sudha [facility] 1.2.840.114 350.1.13.10 4.2.7.2.686 [id number] [facility] 2024-04-03 10:20:00 2024-04-03 10:20:00 Outpatient LUDY MENJIVAR [facility] [id number] [facility] 2024-03-15 11:00:00 2024-03-15 11:00:00 Outpatient IRA JAIMES [facility] [id number] [facility] 2024-03-03 00:00:00 2024-03-03 14:25:42 Specialty Pharmacy Mary Valencia Tamara L [facility] 1.2.840.114 350.1.13.10 4.2.7.2.686 [id number] [facility] 2024-03-02 00:00:00 2024-03-02 09:12:24 Specialty Pharmacy Davidson Amadeo Davidson Amadeo [facility] [place] [place] 1.2.840.114 350.1.13.10 4.2.7.2.686 [id number] [facility] 2024-03-01 11:15:00 2024-03-01 11:30:00 Manager Transportation Visit Lab, [facility] Luann Dumont Lab, [facility] 1.2.840.114 350.1.13.10 4.2.7.2.686 [id number] [facility] 2024-03-01 10:00:00 2024-03-01 11:03:21 Outpatient R LUANN DUMONT [facility] [id number] [facility] 2024-03-01 10:00:00 2024-03-01 11:03:21 Office Visit Luann Dumont [facility] 1.2.840.114 350.1.13.10 4.2.7.2.686 [id number] [facility] 2024-01-20 00:00:00 2024-02-26 18:24:48 Patient Secure Msg Thais Marin [facility] 1.2.840.114 350.1.13.10 4.2.7.2.686 [id number] [facility] 2024-02-24 00:00:00 2024-02-24 17:21:48 Clinic Assessment Ira Smith [facility] MEDICAL OFFICE BUILDING 1.2.840.114 350.1.13.10 4.2.7.2.686 [id number] [facility] 2024-02-24 16:00:00 2024-02-24 16:00:00 Outpatient R IRA SMITH [facility] [id number] [facility] 2024-02-23 00:00:00 2024-02-23 08:00:38 Patient Secure Msg Tania Thais A [facility]ARDO [facility] MEDICAL OFFICE BUILDING 1.2.840.114 350.1.13.10 4.2.7.2.686 [id number] [facility] 2024-02-21 00:00:00 2024-02-21 11:15:36 Specialty Pharmacy Domenica Ludwig Monique [facility] 1.2.840.114 350.1.13.10 4.2.7.2.686 [id number] [facility] 2024-02-17 16:20:00 2024-02-17 16:40:00 Urgent Care Sandra Conlye, Attending [facility]?GERARDO [facility] MED[facility] OFFICE BUILDING 1.2.840.114 350.1.13.10 4.2.7.2.686 [id number] [facility] 2024-02-17 16:20:00 2024-02-17 16:20:00 Outpatient R SANDRA CONLEY [facility] [id number] [facility] 2024-02-16 00:00:00 2024-02-16 16:41:31 Telephone Wade Morse Steven [facility] 1.2.840.114 350.1.13.10 4.2.7.2.686 [id number] [facility] 2024-02-08 13:00:00 2024-02-08 13:00:00 Outpatient R IRA SMITH [facility] [id number] [facility] 2024-02-07 15:05:00 2024-02-07 15:05:00 Outpatient R THAIS MARIN [facility] [id number] [facility] 2024-01-25 00:00:00 2024-01-25 16:15:42 Patient Secure Msg Doctor Unassigned, Foss Doctor Unassigned, Foss [facility] MED[facility] OFF[facility] BUILD[facility] 1.2.840.114 350.1.13.10 4.2.7.2.686 [id number] [facility] 2024-01-21 00:00:00 2024-01-21 15:32:45 Telephone Azalea Dotson [facility] [place] 1.2840.114 350.1.13.10 4.2.7.2.686 [id number] [facility] 2024-01-20 00:00:00 2024-01-20 10:56:30 Patient Secure Msg [facility] BU[facility] 1.2840.114 350.1.13.10 4.2.7.2.686 [id number] [facility] 2024-01-20 10:30:00 2024-01-20 10:45:00 Manager Transportation Visit Lab, David Atkins Thais Marin [facility]?GERARDO [facility] MEDICAL OFFICE BUILDING 1.2840.114 350.1.13.10 4.2.7.2.686 [id number] [facility] 2024-01-20 09:00:00 2024-01-20 09:10:36 Outpatient R TANIA THAIS [facility] [id number] [facility] 2024-01-20 09:00:00 2024-01-20 09:10:36 Office Visit Thais Marin [facility] 1.2840.114 350.1.13.10 4.2.7.2.686 [id number] [facility] 2024-01-19 08:30:00 2024-01-19 08:30:00 Outpatient R THAIS MARIN [facility] [id number] [facility] 2024-01-18 15:30:00 2024-01-18 16:00:00 [facility] 1.2.840.114 350.1.13.10 4.2.7.2.686 [id number] [facility] 2024-01-18 15:30:00 2024-01-18 15:30:00 Outpatient R SARAH [facility] [id number] [facility] 2023-07-14 00:00:00 2024-01-03 11:59:22 Letter (Out) Tawnya Gan [facility] ([facility]) 1..840.114 350.1.13.10 4.2.7.2.686 [id number] [facility] 2023-11-26 00:00:00 2023-12-13 14:08:27 Telephone Sacha Lowe [facility] 1.2.840.114 350.1.13.10 4.2.7.2.686 [id number] [facility] 2023-12-10 15:00:00 2023-12-10 15:00:00 Outpatient R THAIS MARIN [facility] [id number] [facility] 2023-12-02 00:00:00 2023-12-02 14:53:27 Telephone Thais Marin [facility] 1.2.840.114 350.1.13.10 4.2.7.2.686 [id number] [facility] 2023-12-01 11:00:00 2023-12-01 11:00:00 Outpatient R THAIS MARIN [facility] [id number] [facility] 2023-11-24 00:00:00 2023-11-25 09:52:44 Patient Secure Msg Thais Marin [facility] BU[facility] 1.2.840.114 350.1.13.10 4.2.7.2.686 [id number] [facility] 2023-11-19 00:00:00 2023-11-24 15:03:15 Patient Secure Msg Juan Reece [facility] 1.2.840.114 350.1.13.10 4.2.7.2.686 [id number] [facility] 2023-11-16 00:00:00 2023-11-18 10:32:20 Telephone Pipadam [facility] MEDICAL OFFICE BUILDING 1.2.840.114 350.1.13.10 4.2.7.2.686 [id number] [facility] 2023-11-17 00:00:00 2023-11-17 15:54:10 Refill Thais Marin [facility] 1.2.840.114 350.1.13.10 4.2.7.2.686 [id number] [facility] 2023-11-16 12:00:00 2023-11-16 12:30:00 Office Visit Pipadam, [facility] MEDICAL OFFICE BUILDING 1.2.840.114 350.1.13.10 4.2.7.2.686 [id number] [facility] 2023-11-16 09:30:00 2023-11-16 10:32:49 Outpatient R LUDY BRIDGES [facility] [id number] [facility] 2023-11-16 09:30:00 2023-11-16 10:32:49 Office Visit Juan Reece, Ludy Lugo [facility] 1.2.840.114 350.1.13.10 4.2.7.2.686 [id number] [facility] 2023-10-26 00:00:00 2023-11-01 11:14:23 Refill Thais Marin [facility]O [facility] 1.2.840.114 350.1.13.10 4.2.7.2.686 [id number] [facility] 2023-10-26 22:57:00 2023-10-27 01:00:00 Emergency X JASMINAPAIGE LANDA [facility] ERT [id number] [facility] 2023-10-26 22:57:00 2023-10-27 01:00:00 Emergency JasminamelvinjustusPaige [facility] 1.2.840.114 350.1.13.10 4.2.7.2.686 [id number] [facility] 2023-10-25 00:00:00 2023-10-25 17:13:10 Telephone Pipes, Ira [facility] MEDICAL OFFICE BUILDING 1.2.840.114 350.1.13.10 4.2.7.2.686 [id number] [facility] 2023-10-20 15:00:00 2023-10-20 16:41:08 Outpatient R LANCE GILMAN [facility] [id number] [facility] 2023-10-20 15:00:00 2023-10-20 16:41:08 Office Visit Lance Gilman [facility] 1.2.840.114 350.1.13.10 4.2.7.2.686 [id number] [facility] 2023-10-04 09:30:00 2023-10-04 09:30:00 Outpatient R TAWNYA GAN [facility] [id number] [facility] 2023-09-29 14:30:00 2023-09-29 14:30:00 Outpatient R [facility] [id number] [facility] 2023-09-27 08:00:00 2023-09-27 08:00:00 Outpatient R TAWANA JEAN [facility] [id number] [facility] 2023-09-22 13:45:00 2023-09-22 13:45:00 Outpatient R BOB FLORES CRAIG [facility] [id number] [facility] 2023-09-22 00:00:00 2023-09-22 00:00:00 Case Management Laurie Montejo [facility] 1..840.114 350.1.13.10 4.2.7.2.686 [id number] [facility] 2023-09-16 00:00:00 2023-09-16 00:00:00 Refill Juan Reece [facility] 1.2.840.114 350.1.13.10 4.2.7.2.686 [id number] [facility] 2023-09-16 00:00:00 2023-09-16 00:00:00 Patient Secure Juan Erickson [facility] 1.840.114 350.1.13.10 4.2.7.2.686 [id number] [facility] 2023-09-15 15:10:00 2023-09-15 16:12:53 Outpatient R LANCE GILMAN [facility] [id number] [facility] 2023-09-15 15:10:00 2023-09-15 16:12:53 Office Visit Lance Gilman [facility] 1..840.114 350.1.13.10 4.2.7.2.686 [id number] [facility] 2023-09-09 14:45:00 2023-09-09 14:45:00 Outpatient R TAWANA JEAN [facility] [id number] [facility] 2023-09-09 10:15:00 2023-09-09 11:28:12 Outpatient R BOB FLORES CRAIG [facility] [id number] [facility] 2023-09-09 10:15:00 2023-09-09 11:28:12 Ancillary Visit Laurie Montejo Craig L [facility] 1..840.114 350.1.13.10 4.2.7.2.686 [id number] [facility] 2023-09-09 00:00:00 2023-09-09 00:00:00 Refill Thais Marin [facility] 1..840.114 350.1.13.10 4.2.7.2.686 [id number] [facility] 2023-09-08 11:00:00 2023-09-08 11:00:00 Outpatient R THAIS MARIN [facility] [id number] [facility] 2023-09-07 00:00:00 2023-09-07 00:00:00 Telephone Tawnya Gan [facility] 1.840.114 350.1.13.10 4.2.7.2.686 [id number] [facility] 2023-09-06 09:30:00 2023-09-06 09:30:00 Outpatient R TAWNYA GAN [facility] [id number] [facility] 2023-09-04 00:00:00 2023-09-04 00:00:00 Refill Thais Marin [facility] 1.2.840.114 350.1.13.10 4.2.7.2.686 [id number] [facility] 2023-09-01 15:30:00 2023-09-01 15:30:00 Outpatient R TAWNYA GAN [facility] [id number] [facility] 2023-09-01 00:00:00 2023-09-01 00:00:00 Patient Secure Msg [facility] 1.2.840.114 350.1.13.10 4.2.7.2.686 [id number] [facility] 2023-08-30 00:00:00 2023-08-30 00:00:00 Refill Pipes, [facility] MEDICAL OFFICE BUILDING 1.2.840.114 350.1.13.10 4.2.7.2.686 [id number] [facility] 2023-08-26 00:00:00 2023-08-26 00:00:00 Case Management Laurie Montejo [facility] PROFESSIO NAL BUILDING 1.2.840.114 350.1.13.10 4.2.7.2.686 [id number] [facility] 2023-08-26 00:00:00 2023-08-26 00:00:00 Refill Pipes, [facility] MEDICAL OFFICE BUILDING 1.2.840.114 350.1.13.10 4.2.7.2.686 [id number] [facility] 2023-08-26 00:00:00 2023-08-26 00:00:00 Refill Bronwyn Wellington [facility] 1.2.840.114 350.1.13.10 4.2.7.2.686 [id number] [facility] 2023-08-25 13:58:00 2023-08-25 23:59:00 Outpatient R BRONWYN WELLINGTON [facility] [id number] [facility] 2023-08-25 13:58:00 2023-08-25 23:59:00 Hospital Encounter Bronwyn Wellington [facility] 1..114 350.1.13.10 4.2.7.2.686 [id number] [facility] 2023-08-25 13:40:00 2023-08-25 14:51:03 Office Visit Bronwyn Wellington [facility] 1.840.114 350.1.13.10 4.2.7.2.686 [id number] [facility] 2023-08-20 13:00:00 2023-08-20 14:03:14 Outpatient R PETE OWENS [facility] [id number] [facility] 2023-08-20 13:00:00 2023-08-20 14:03:14 Nurse Visit Visit, Ang-Rmchp Pete Regalado [facility] QUANTITATIVE [facility] 84.114 350.1.13.10 4.2.7.2.686 [id number] [facility] 2023-08-17 09:30:00 2023-08-17 09:30:00 Outpatient R JOCY MICHAEL [facility] [id number] [facility] 2023-08-17 00:00:00 2023-08-17 00:00:00 Case Management Laurie Montejo [facility] .84.114 350.1.13.10 4.2.7.2.686 [id number] [facility] 2023-08-16 09:00:00 2023-08-16 09:26:12 Outpatient R IRA SMITH [facility] [id number] [facility] 2023-08-16 09:00:00 2023-08-16 09:26:12 Office Visit Sarah [facility] MEDICAL OFFICE BUILDING 1.840.114 350.1.13.10 4.2.7.2.686 [id number] [id number] [facility] 2023-08-13 14:35:00 2023-08-13 17:12:00 Emergency X BOGDAN GABRIEL [facility] ERT [id number] [facility] 2023-08-13 14:35:00 2023-08-13 17:12:00 Emergency Fely Bogdan [facility] 1.840.114 350.1.13.10 4.2.7.2.686 [id number] [id number] [facility] 2023-08-13 13:15:00 2023-08-13 13:15:00 Outpatient R PETE OWENS [facility] [id number] [facility] 2023-08-13 00:00:00 2023-08-13 00:00:00 Patient Secure Msg Pete Owens [facility] QUANTITATIVE [facility] 1.840.114 350.1.13.10 4.2.7.2.686 [id number] [facility] 2023-08-09 11:00:00 2023-08-09 11:00:00 Outpatient R [facility]AH [facility] [id number] [facility] 2023-08-09 00:00:00 2023-08-09 00:00:00 Telephone Lorena Kirk [facility] MEDICAL OFFICE BUILDING 1..840.114 350.1.13.10 4.2.7.2.686 [id number] [facility] 2023-08-02 00:00:00 2023-08-02 00:00:00 Telephone Bronwyn Wellington [facility] 1.2.840.114 350.1.13.10 4.2.7.2.686 [id number] [facility] 2023-07-30 00:00:00 2023-07-30 00:00:00 Patient Secure Msg [facility] 1.2.840.114 350.1.13.10 4.2.7.2.686 [id number] [facility] 2023-07-29 14:05:00 2023-07-29 23:59:00 Hospital Encounter [facility] 1.2.840.114 350.1.13.10 4.2.7.2.686 [id number] [facility] 2023-07-29 15:00:00 2023-07-29 15:15:00 Manager Transportation Visit Lab, [facility] Juan Hernandez Emilio B [facility] 1.2.840.114 350.1.13.10 4.2.7.2.686 [id number] [facility] 2023-07-29 13:40:00 2023-07-29 14:40:01 Outpatient R [facility] [id number] [facility] 2023-07-29 13:40:00 2023-07-29 14:00:00 Office Visit [facility] 1.2.840.114 350.1.13.10 4.2.7.2.686 [id number] [facility] 2023-07-28 15:00:00 2023-07-28 15:00:00 Outpatient R BRONWYN WELLINGTON [facility] [id number] [facility] 2023-07-26 00:00:00 2023-07-26 00:00:00 Patient Secure Msg [facility] 1.2840.114 350.1.13.10 4.2.7.2.686 [id number] [facility] 2023-07-23 00:00:00 2023-07-23 00:00:00 Orders Only Doctor Unassigned, Foss [facility] 1.2.840.114 350.1.13.10 4.2.7.2.686 [id number] [facility] 2023-07-21 00:00:00 2023-07-21 00:00:00 Refill Thais Marin [facility] 1.2.840.114 350.1.13.10 4.2.7.2.686 [id number] 044 [id number] [facility] 2023-07-14 15:30:00 2023-07-14 16:00:00 Office Visit [facility] 1.2840.114 350.1.13.10 4.2.7.2.686 [id number] [id number] [facility] 2023-07-14 15:30:00 2023-07-14 15:30:00 Outpatient TAWNYA LEE [facility] [id number] [facility] 2023-07-14 14:00:00 2023-07-14 14:00:00 Outpatient Alannah GAN TAWNYA [facility] [id number] [facility] 2023-07-13 11:00:00 2023-07-13 11:00:00 Outpatient Alannah GAN [facility] [id number] [facility] 2023-07-13 00:00:00 2023-07-13 00:00:00 Refill Irene Mari [facility] 1.2840.114 350.1.13.10 4.2.7.2.686 [id number] [facility] 2023-07-07 14:20:00 2023-07-07 15:54:59 Outpatient R BRONWYN WELLINGTON [facility] [id number] [facility] 2023-07-07 14:20:00 2023-07-07 15:54:59 Office Visit Bronwyn Wellington [facility] 1.2.840.114 350.1.13.10 4.2.7.2.686 [id number] [facility] 2023-07-05 00:00:00 2023-07-05 00:00:00 Case Management Tawana Jean [facility] QUANTITATIVE [facility] 1.2840.114 350.1.13.10 4.2.7.2.686 [id number] [facility] 2023-07-05 00:00:00 2023-07-05 00:00:00 Patient Secure Msg Bronwyn Wellington [facility] 1.2840.114 350.1.13.10 4.2.7.2.686 [id number] [facility] 2023-07-05 00:00:00 2023-07-05 00:00:00 Patient Secure Msg Tawana Jean [facility] QUANTITATIVE [facility] 1.2.840.114 350.1.13.10 4.2.7.2.686 [id number] [facility] 2023-07-02 00:00:00 2023-07-02 00:00:00 Telephone Tawana Jean [facility] QUANTITATIVE [facility] 1.2.840.114 350.1.13.10 4.2.7.2.686 [id number] [facility] 2023-07-01 14:45:00 2023-07-01 15:52:34 Outpatient R TAWANA JEAN [facility] [id number] [facility] 2023-07-01 14:45:00 2023-07-01 15:52:34 Office Visit Tawana Jean [facility] QUANTITATIVE [facility] 1.2.840.114 350.1.13.10 4.2.7.2.686 [id number] [facility] 2023-07-01 00:00:00 2023-07-01 00:00:00 [facility] 1.2.840.114 350.1.13.10 4.2.7.2.686 [id number] [facility] 2023-06-30 15:00:00 2023-06-30 15:00:00 Outpatient R TAWNYA GAN [facility] [id number] [facility] 2023-06-23 12:50:00 2023-06-23 14:31:22 Outpatient R BRONWYN WELLINGTON [facility] [id number] [facility] 2023-06-23 12:50:00 2023-06-23 14:31:22 Office Visit Bronwyn Wellington [facility] ..840.114 350.1.13.10 4.2.7.2.686 [id number] [facility] 2023-06-23 00:00:00 2023-06-23 00:00:00 Patient Secure Msg Bronwyn Wellington [facility] 1.2.840.114 350.1.13.10 4.2.7.2.686 [id number] [facility] 2023-06-23 00:00:00 2023-06-23 00:00:00 Patient Secure Msg Doctor Unassigned, Foss [facility] 1..114 350.1.13.10 4.2.7.2.686 [id number] [id number] [facility] 2023-06-22 08:00:00 2023-06-22 09:11:03 Outpatient R UNRULY TRAN [facility] [id number] [facility] 2023-06-22 08:00:00 2023-06-22 09:11:03 Office Visit Juan Reece Emilio B [facility] 1.114 350.1.13.10 4.2.7.2.686 [id number] [facility] 2023-06-22 00:00:00 2023-06-22 00:00:00 Telephone Bronwyn Wellington [facility] 1.0.114 350.1.13.10 4.2.7.2.686 [id number] [facility] 2023-06-21 18:13:00 2023-06-21 20:19:00 Emergency X JESSICA TORRES [facility] ERT [id number] [facility] 2023-06-21 18:13:00 2023-06-21 20:19:00 Emergency Jessica Torres [facility] 1.0.114 350.1.13.10 4.2.7.2.686 [id number] [facility] 2023-06-21 00:00:00 2023-06-21 00:00:00 Patient Secure Msg Thais Marin [facility] 1.0.114 350.1.13.10 4.2.7.2.686 [id number] [id number] [facility] 2023-06-20 00:00:00 2023-06-20 00:00:00 Telephone Thais Marin [facility] MED[facility] OFF[facility] BUILD[facility] 1..840.114 350.1.13.10 4.2.7.2.686 [id number] [id number] [facility] 2023-06-17 00:00:00 2023-06-17 00:00:00 Patient Secure Msg Thais Marin [facility] MED[facility] OFF[facility] BUILDING 1..840.114 350.1.13.10 4.2.7.2.686 [id number] [facility] 2023-06-16 20:00:00 2023-06-16 20:36:02 Outpatient IRENE OJEDA [facility] [id number] [facility] 2023-06-16 20:00:00 2023-06-16 20:36:02 Urgent Care Irene Mari Unknown, Attending [facility] 1..840.114 350.1.13.10 4.2.7.2.686 [id number] [facility] 2023-06-10 10:30:00 2023-06-10 10:30:00 Outpatient R ROMULO CHERRY STRAHIL [facility] [id number] [facility] 2023-06-03 10:00:00 2023-06-03 10:15:00 Manager Transportation Visit [facility] Romulo Cherry [facility] 1..840.114 350.1.13.10 4.2.7.2.686 [id number] [facility] 2023-06-03 10:00:00 2023-06-03 10:00:00 Outpatient R ROMULO CHERRY STRAHIL [facility] [id number] [facility] 2023-06-03 00:00:00 2023-06-03 00:00:00 Orders Only Doctor Unassigned, Foss [facility] 1..840.114 350.1.13.10 4.2.7.2.686 [id number] [facility] 2023-06-01 09:00:00 2023-06-01 09:00:00 Outpatient R ROMULO CHERRY STRAHIL [facility] [id number] [facility] 2023-05-26 14:00:00 2023-05-26 14:41:13 Outpatient R TANIA THAIS [facility] [id number] [facility] 2023-05-26 14:00:00 2023-05-26 14:41:13 Office Visit Tania Thais [facility] MEDICAL OFFICE BUILDING 1..840.114 350.1.13.10 4.2.7.2.686 [id number] 044 [id number] [facility] 2023-05-26 00:00:00 2023-05-26 00:00:00 Telephone Tania [facility] MEDICAL OFF[facility] BUILD[facility] 1..840.114 350.1.13.10 4.2.7.2.686 [id number] 044 [id number] [facility] 2023-05-21 09:00:00 2023-05-21 09:00:00 Outpatient R THAIS MARIN [facility] [id number] [facility] 2023-05-18 13:32:49 2023-05-18 23:59:00 Outpatient R CARLITO MORAN [facility] [id number] [facility] 2023-05-18 13:00:00 2023-05-18 23:59:00 Hospital Encounter Carlito Moran [facility] 1.840.114 350.1.13.10 4.2.7.2.686 [id number] [facility] 2023-05-10 14:30:00 2023-05-10 15:53:08 Outpatient R CARLITO MORAN [facility] [id number] [facility] 2023-05-10 14:30:00 2023-05-10 15:53:08 Routine Visit Clinic, [facility] Resident Carlito Moran [facility] 1.114 350.1.13.10 4.2.7.2.686 [id number] [facility] 2023-05-06 11:30:00 2023-05-06 12:05:01 Outpatient R LORENA KIRK [facility] [id number] [facility] 2023-05-06 11:30:00 2023-05-06 12:05:01 Office Visit Lorena Kirk [facility] MEDICAL OFFICE BUILDING 1.114 350.1.13.10 4.2.7.2.686 [id number] [facility] 2023-05-06 00:00:00 2023-05-06 00:00:00 Letter (Out) Lorena Kirk [facility] MEDICAL OFFICE BUILDING 1.114 350.1.13.10 4.2.7.2.686 [id number] 092 [id number] [facility] 2023-05-04 00:00:00 2023-05-04 00:00:00 Patient Secure Msg Doctor Unassigned, Foss [facility] 1.114 350.1.13.10 4.2.7.2.686 [id number] 095 [id number] [facility] 2023-05-03 00:00:00 2023-05-03 00:00:00 Transition of Care Shy Posada 1..114 350.1.13.10 4.2.7.2.686 [id number] [facility] 2023-04-26 05:34:00 2023-05-01 17:08:00 Inpatient R LORENA KIRK [facility] ELOY [id number] [facility] 2023-04-26 05:34:00 2023-05-01 17:08:00 Hospital Encounter Bandar Baca, Carlito Armstrong Ronald, Lorena Mari [facility] 1.114 350.1.13.10 4.2.7.2.686 [id number] [facility] 2023-04-23 16:00:00 2023-04-23 17:14:36 Outpatient R THAIS MARIN [facility] [id number] [facility] 2023-04-23 16:00:00 2023-04-23 17:14:36 Office Visit Thais Marin [facility] MEDICAL OFF[facility] BUILDING 1.114 350.1.13.10 4.2.7.2.686 [id number] 044 [id number] [facility] 2023-04-14 00:00:00 2023-04-14 00:00:00 Patient Secure Msg Umaña-Orti Jose livingston [facility] 1.114 350.1.13.10 4.2.7.2.686 [id number] [id number] [facility] 2023-04-14 00:00:00 2023-04-14 00:00:00 Patient Secure Msg Doctor Unassigned, Foss [facility] MEDICAL OFF[facility] BUILDING 1.114 350.1.13.10 4.2.7.2.686 [id number] 044 [id number] [facility] 2023-04-12 00:00:00 2023-04-12 00:00:00 Patient Secure Msg Doctor Unassigned, Foss [facility] 1.114 350.1.13.10 4.2.7.2.686 [id number] [facility] 2023-04-09 10:30:00 2023-04-09 10:45:00 Manager Transportation Visit Pcp-Elieser Ludy Bridges [facility] 1.2.840.114 350.1.13.10 4.2.7.2.686 [id number] [facility] 2023-04-09 08:30:00 2023-04-09 10:17:59 Outpatient R LUDY BRIDGES [facility] [id number] [facility] 2023-04-09 08:30:00 2023-04-09 10:17:59 Office Visit Pavan livingston JoseLudy Anaya [facility] 1.2840.114 350.1.13.10 4.2.7.2.686 [id number] [id number] [facility] 2023-04-09 00:00:00 2023-04-09 00:00:00 Letter (Out) UmañaSean livingston Jose [facility] 1.2840.114 350.1.13.10 4.2.7.2.686 [id number] [id number] [facility] 2023-04-08 00:00:00 2023-04-08 00:00:00 Telephone Thais Marin [facility] MED[facility] OFF[facility] BUILD[facility] 1.2840.114 350.1.13.10 4.2.7.2.686 [id number] [facility] 2023-04-08 00:00:00 2023-04-08 00:00:00 Patient Secure Msg Doctor Unassigned, Foss [facility] MED[facility] OFF[facility] BUILDING 1.2840.114 350.1.13.10 4.2.7.2.686 [id number] [id number] [facility] 2023-04-07 14:15:00 2023-04-07 15:42:31 Manager Transportation Visit Lab, Ang - Wilbert Andrew Marinlie [facility] MEDICAL OFFICE BUILDING 1..840.114 350.1.13.10 4.2.7.2.686 [id number] [facility] 2023-04-07 13:30:00 2023-04-07 14:10:07 Outpatient R THAIS MARIN [facility] [id number] [facility] 2023-04-07 13:30:00 2023-04-07 14:10:07 Office Visit Thais Marin [facility] MEDICAL OFFICE BUILDING 1.840.114 350.1.13.10 4.2.7.2.686 [id number] [facility] 2023-04-05 13:15:00 2023-04-05 15:10:25 Outpatient R BANDAR BACA [facility] [id number] [facility] 2023-04-05 13:15:00 2023-04-05 15:10:25 Office Visit Pgy2 [place] [facility] 1.84.114 350.1.13.10 4.2.7.2.686 [id number] [facility] 2023-03-23 13:00:00 2023-03-23 13:00:00 Outpatient R [facility] [id number] [facility] 2023-03-23 00:00:00 2023-03-23 00:00:00 Telephone Alissa Leon [facility] 1..114 350.1.13.10 4.2.7.2.686 [id number] [facility] 2023-03-12 00:00:00 2023-03-12 00:00:00 Telephone Tawana Jean [facility] QUANTITATIVE [facility] 1.2.840.114 350.1.13.10 4.2.7.2.686 [id number] [facility] 2023-02-05 09:00:00 2023-02-05 09:00:00 Outpatient R TAWANA JEAN [facility] [id number] [facility] 2023-02-04 11:00:00 2023-02-04 11:00:00 Outpatient R KEVIN PELLETIER CHERYAL [facility] [id number] [facility] 2023-02-01 10:15:00 2023-02-01 14:26:48 Outpatient R BANDAR BACA [facility] [id number] [facility] 2023-02-01 10:15:00 2023-02-01 14:26:48 Telemedici ne Visit Trimester, [facility] Res-1st Bandar Baca [facility] 1..840.114 350.1.13.10 4.2.7.2.686 [id number] [facility] 2023-01-26 16:00:00 2023-01-26 16:00:00 Outpatient R KEVIN PELLETIER CHERYAL [facility] [id number] [facility] 2023-01-26 00:00:00 2023-01-26 00:00:00 Patient Secure Msg Tawana Jean [facility] QU[facility]ITATIVE [facility] 1..840.114 350.1.13.10 4.2.7.2.686 [id number] [facility] 2023-01-25 20:52:00 2023-01-25 23:28:00 Emergency X GAURAV JOHN [facility] ERT [id number] [facility] 2023-01-25 20:52:00 2023-01-25 23:28:00 Emergency Gaurav John [facility] 1.114 350.1.13.10 4.2.7.2.686 [id number] [facility] 2023-01-18 14:39:00 2023-01-18 16:33:00 Emergency X PRAMOD DEB [facility] ERT [id number] [facility] 2023-01-18 14:39:00 2023-01-18 16:33:00 Emergency Deb Benavidez [facility] 1.114 350.1.13.10 4.2.7.2.686 [id number] [facility] 2023-01-18 09:30:00 2023-01-18 11:22:09 Outpatient R BANDAR BACA [facility] [id number] [facility] 2023-01-18 09:30:00 2023-01-18 11:22:09 Routine Visit Trimester, [facility] Res-1st Bandar Baca [facility] 1.114 350.1.13.10 4.2.7.2.686 [id number] [facility] 2023-01-14 00:00:00 2023-01-14 00:00:00 Patient Secure Msg Mariajose Ramsey [facility] 1..114 350.1.13.10 4.2.7.2.686 [id number] [facility] 2023-01-08 10:30:00 2023-01-09 17:30:00 Outpatient X MARIAJOSE RAMSEY MOCHERYL SAIMA [id number] [facility] 2023-01-08 10:30:00 2023-01-09 17:30:00 Emergency Clary Richmond Vivian L [facility] 1.2.840.114 350.1.13.10 4.2.7.2.686 [id number] [facility] 2023-01-08 20:03:18 2023-01-08 20:03:18 Anesthesia Event Puga EseSevero Pinzon [facility] 1.2.840.114 350.1.13.10 4.2.7.2.686 [id number] [facility] 2023-01-08 17:45:00 2023-01-08 19:13:00 Surgery Adrafaela Mariajose Gudino [facility] [place] 1.2.840.114 350.1.13.10 4.2.7.2.686 [id number] [facility] 2023-01-08 10:30:00 2023-01-08 10:30:00 Outpatient R PETE OWENS [facility] [id number] [facility] 2023-01-04 12:21:39 2023-01-04 23:59:00 Hospital Encounter [facility] 1.2.840.114 350.1.13.10 4.2.7.2.686 [id number] [facility] 2023-01-04 08:30:00 2023-01-04 11:08:47 Outpatient P BANDAR ABCA [facility] [id number] [facility] 2023-01-04 08:30:00 2023-01-04 11:08:47 Routine Visit Trimester, [facility] Res-1st [facility] 1.2.840.114 350.1.13.10 4.2.7.2.686 [id number] [facility] 2023-01-04 10:45:00 2023-01-04 11:00:00 Manager Transportation Visit [facility], Bandar [facility] 1.0.114 350.1.13.10 4.2.7.2.686 [id number] [facility] 2023-01-01 22:42:00 2023-01-02 01:04:00 Emergency X GAURAV JOHN [facility] ERT [id number] [facility] 2023-01-01 22:42:00 2023-01-02 01:04:00 Emergency Gaurav John J [facility] 1.0.114 350.1.13.10 4.2.7.2.686 [id number] [facility] 2023-01-01 16:00:00 2023-01-01 16:47:46 Outpatient R WILBUR [facility] [id number] [facility] 2023-01-01 16:00:00 2023-01-01 16:47:46 Manager Transportation Visit Lab, [facility] QUANTITATIVE [facility] MATERNAL & CHILD HEALTH [facility] 1.0.114 350.1.13.10 4.2.7.2.686 [id number] [facility] 2023-01-01 15:30:00 2023-01-01 16:00:00 Manager Transportation Visit 1, [facility] MATERNAL & CHILD HE[facility] 1.0.114 350.1.13.10 4.2.7.2.686 [id number] [facility] 2023-01-01 00:00:00 2023-01-01 00:00:00 Patient Secure Msg Doctor Unassigned, Foss [facility] 1.2840.114 350.1.13.10 4.2.7.2.686 [id number] [facility] 2022-12-21 10:30:00 2022-12-21 11:40:15 Outpatient R PHYLLISKleber TAWANA [facility] [id number] [facility] 2022-12-21 10:30:00 2022-12-21 11:40:15 Routine Visit Tawana Jean [facility] QUANTITATIVE [facility] MATERNAL & [facility] 1.0.114 350.1.13.10 4.2.7.2.686 [id number] [facility] 2022-12-21 10:30:00 2022-12-21 10:30:00 Outpatient R AGNESBETSY [facility] [id number] [facility] 2022-12-21 00:00:00 2022-12-21 00:00:00 Orders Only Doctor Unassigned, Foss [facility] 1..114 350.1.13.10 4.2.7.2.686 [id number] [facility] 2022-12-18 09:30:00 2022-12-18 09:30:00 Outpatient R PETE OWENS [facility] [id number] [facility] 2022-12-17 04:15:00 2022-12-17 09:43:00 Emergency EM Saad Valdovinos [facility] [id number] [facility] 2022-12-17 00:00:00 2022-12-17 00:00:00 Patient Secure Msg Pete Owens [facility] QUANTITATIVE [facility] 1..114 350.1.13.10 4.2.7.2.686 [id number] [facility] 2022-12-14 00:00:00 2022-12-14 00:00:00 Telephone Pete Owens [facility] QUANTITATIVE [facility] 1.0.114 350.1.13.10 4.2.7.2.686 [id number] 107 [id number] [facility] 2022-12-12 00:00:00 2022-12-12 00:00:00 Case Management Tawana Jean [facility] QUANTITATIVE [facility] & [facility] 1..114 350.1.13.10 4.2.7.2.686 [id number] [facility] 2022-12-12 00:00:00 2022-12-12 00:00:00 Patient Secure Msg Pete Owens [facility] QUANTITATIVE [facility] 1..114 350.1.13.10 4.2.7.2.686 [id number] [facility] 2022-12-11 10:00:00 2022-12-11 12:03:06 Outpatient R PETE OWENS [facility] [id number] [facility] 2022-12-11 10:00:00 2022-12-11 12:03:06 Initial Visit Pete Owens [facility] QUANTITATIVE [facility] 1..114 350.1.13.10 4.2.7.2.686 [id number] 107 [id number] [facility] 2022-12-09 10:45:00 2022-12-09 12:04:26 Outpatient R TAWANA JEAN [facility] [id number] [facility] 2022-12-09 10:45:00 2022-12-09 12:04:26 Office Visit Tawana Jean [facility] QUANTITATIVE [facility] 1..114 350.1.13.10 4.2.7.2.686 [id number] [facility] 2022-12-09 00:00:00 2022-12-09 00:00:00 Orders Only Doctor Unassigned, Foss [facility] 1.114 350.1.13.10 4.2.7.2.686 [id number] [facility] 2022-12-07 00:00:00 2022-12-07 00:00:00 Patient Secure Tawana Jean [facility] QUANTITATIVE [facility] & [facility] 1.0.114 350.1.13.10 4.2.7.2.686 [id number] [facility] 2022-12-03 00:00:00 2022-12-03 00:00:00 Telephone Pcp, Patient Does Not Have A [facility] 1.114 350.1.13.10 4.2.7.2.686 [id number] [facility] 2022-11-27 08:45:00 2022-11-27 08:45:00 Outpatient R PETE OWENS [facility] [id number] [facility] 2022-11-26 13:45:00 2022-11-26 13:45:00 Outpatient R TAWANA JEAN [facility] [id number] [facility] 2022-11-26 10:45:00 2022-11-26 10:45:00 Outpatient R TAWANA JEAN [facility] [id number] [facility] 2022-11-12 15:00:00 2022-11-12 15:39:24 Outpatient R TAWANA JEAN [facility] [id number] [facility] 2022-11-12 15:00:00 2022-11-12 15:39:24 Office Visit Tawana Jean [facility] QUANTITATIVE [facility] 1.84.114 350.1.13.10 4.2.7.2.686 [id number] [facility] 2022-11-11 13:00:00 2022-11-11 13:00:00 Outpatient R [facility] [id number] [facility] 2022-11-11 00:00:00 2022-11-11 00:00:00 Telephone [facility] 1.2.840.114 350.1.13.10 4.2.7.2.686 [id number] [facility] 2022-10-28 00:00:00 2022-10-28 00:00:00 Telephone [facility] 1.2.840.114 350.1.13.10 4.2.7.2.686 [id number] [facility] 2022-10-22 15:00:00 2022-10-22 15:40:25 Outpatient TAWANA LLANOS [facility] [id number] [facility] 2022-10-22 15:00:00 2022-10-22 15:40:25 Routine Visit Tawana Jean [facility] QUANTITATIVE [facility] & [facility] 1.2840.114 350.1.13.10 4.2.7.2.686 [id number] [facility] 2022-10-22 00:00:00 2022-10-22 00:00:00 Orders Only Doctor Unassigned, Foss [facility] 1.2840.114 350.1.13.10 4.2.7.2.686 [id number] [facility] 2022-10-20 10:45:00 2022-10-20 10:45:00 Outpatient TAWANA LLANOS [facility] [id number] [facility] 2022-10-13 08:45:00 2022-10-13 08:45:00 Outpatient TAWANA LLANOS [facility] [id number] [facility] 2022-09-29 09:15:00 2022-09-29 09:15:00 Outpatient SANDHYA ASKEW KARREN [facility] [id number] [facility] 2022-09-29 00:00:00 2022-09-29 00:00:00 Patient Secure Msg FaustBhavesh altamirano [facility] 1.84.114 350.1.13.10 4.2.7.2.686 [id number] [facility] 2022-09-26 17:36:00 2022-09-28 13:20:00 Outpatient X PAIGE MELISSA [facility] OBF [id number] [facility] 2022-09-26 17:36:00 2022-09-28 13:20:00 Emergency Winifred James Wakili S Lam, Vien Cam [facility] 1.840.114 350.1.13.10 4.2.7.2.686 [id number] [facility] 2022-09-28 13:15:00 2022-09-28 13:15:00 Outpatient R TAWANA JEAN [facility] [id number] [facility] 2022-09-28 00:00:00 2022-09-28 00:00:00 Patient Secure Tawana Jean [facility] QUANTITATIVE [facility] MATERNAL & [facility]ILD [facility] 1.840.114 350.1.13.10 4.2.7.2.686 [id number] [facility] 2022-09-27 19:45:00 2022-09-27 21:10:00 Surgery Fara altamirano Gillian [facility] 1.84.114 350.1.13.10 4.2.7.2.686 [id number] [facility] 2022-09-23 22:37:00 2022-09-24 02:17:00 Emergency X ARIANA CASTRO [facility] ERT [id number] [facility] 2022-09-23 22:37:00 2022-09-24 02:17:00 Emergency Ariana Castro [facility] 1.2.840.114 350.1.13.10 4.2.7.2.686 [id number] [facility] 2022-09-24 00:00:00 2022-09-24 00:00:00 Case Management Tawana Jean [facility] QUANTITATIVE [facility] 1.2.840.114 350.1.13.10 4.2.7.2.686 [id number] [facility] 2022-09-24 00:00:00 2022-09-24 00:00:00 Patient Secure Msg Tawana Jean [facility] QUANTITATIVE [facility] 1.2.840.114 350.1.13.10 4.2.7.2.686 [id number] 107 [id number] [facility] 2022-09-23 16:00:00 2022-09-23 16:48:21 Outpatient R TAWANA JEAN [facility] [id number] [facility] 2022-09-23 16:00:00 2022-09-23 16:48:21 Routine Visit Tawana Jean [facility] QUANTITATIVE [facility] 1.2.840.114 350.1.13.10 4.2.7.2.686 [id number] [facility] 2022-09-23 12:45:00 2022-09-23 12:45:00 Outpatient R TAWANA JEAN [facility] [id number] [facility] 2022-09-17 16:00:00 2022-09-17 16:00:00 Outpatient R [facility] [id number] [facility] 2022-09-10 15:45:00 2022-09-10 15:45:00 Outpatient TAWANA LLANOS [facility] [id number] [facility] 2022-09-08 13:45:00 2022-09-08 13:45:00 Outpatient TAWANA LLANOS [facility] [id number] [facility] 2022-08-28 00:00:00 2022-08-28 00:00:00 Patient Secure Tawana Ortiz [facility] QUANTITATIVE [facility] 1.2.840.114 350.1.13.10 4.2.7.2.686 [id number] [facility] 2022-08-27 00:00:00 2022-08-27 00:00:00 Patient Secure Tawana Ortiz [facility] QUANTITATIVE [facility] 1.2.840.114 350.1.13.10 4.2.7.2.686 [id number] [facility] 2022-08-13 00:00:00 2022-08-13 00:00:00 Case Management Tawana Jean [facility] QUANTITATIVE [facility] 1.2.840.114 350.1.13.10 4.2.7.2.686 [id number] 107 [id number] [facility] 2022-08-13 00:00:00 2022-08-13 00:00:00 Patient Secure Tawana Ortiz [facility] QUANTITATIVE [facility] 1.2.840.114 350.1.13.10 4.2.7.2.686 [id number] 107 [id number] [facility] 2022-08-12 07:45:00 2022-08-12 08:09:39 Manager Transportation Visit Lab, Ang-Rmchp Tawana Jean [facility] QUANTITATIVE [facility] 1.2.840.114 350.1.13.10 4.2.7.2.686 [id number] [facility] 2022-08-12 07:45:00 2022-08-12 07:45:00 Outpatient TAWANA LLANOS [facility] [id number] [facility] 2022-08-11 14:30:00 2022-08-11 16:26:19 Outpatient TAWANA LLANOS [facility] [id number] [facility] 2022-08-11 14:30:00 2022-08-11 16:26:19 Initial Visit Provider, Tawana Metcalf [facility] QUANTITATIVE [facility] & [facility] 1..840.114 350.1.13.10 4.2.7.2.686 [id number] [facility] 2022-08-11 00:00:00 2022-08-11 00:00:00 Orders Only Doctor Unassigned, Foss [facility] 1..840.114 350.1.13.10 4.2.7.2.686 [id number] [facility] 2022-07-14 08:15:00 2022-07-14 08:15:00 Outpatient TAWANA LLANOS [facility] [id number] [facility] 2022-05-23 10:30:00 2022-05-23 10:30:00 Outpatient R [facility] [id number] [facility] 2022-05-23 10:30:00 2022-05-23 10:30:00 Outpatient CM ANN [facility] [id number] [facility] 2022-05-01 08:00:00 2022-05-01 08:00:00 Outpatient TAWANA LLANOS [facility] [id number] [facility] 2022-04-30 07:45:00 2022-04-30 07:45:00 Outpatient WILBERT MUNGUIA [facility] [id number] [facility] 2022-04-27 02:06:00 2022-04-27 02:53:00 Emergency X WINIFRED JAMES [facility] ERT [id number] [facility] 2022-04-27 02:06:00 2022-04-27 02:53:00 Emergency Winirfed James G [facility] 1..114 350.1.13.10 4.2.7.2.686 [id number] [facility] 2022-04-27 00:00:00 2022-04-27 00:00:00 Orders Only Doctor Unassigned, Foss [facility] 1..114 350.1.13.10 4.2.7.2.686 [id number] [facility] 2022-04-18 10:45:00 2022-04-18 11:50:36 Outpatient SULEIMAN SIMS [facility] [id number] [facility] 2022-04-18 10:45:00 2022-04-18 11:50:36 Office Visit Provider, RosaSangeetha Henriquezsie [facility] QUANTITATIVE [facility] MATERNAL & CHILD [facility] 1.84.114 350.1.13.10 4.2.7.2.686 [id number] [facility] 2022-04-17 00:00:00 2022-04-17 00:00:00 Telephone Pete Owens [facility] QUANTITATIVE [facility] & [facility] 1..114 350.1.13.10 4.2.7.2.686 [id number] [facility] 2022-04-16 12:45:00 2022-04-16 12:45:00 Outpatient TAWANA LLANOS [facility] [id number] [facility] 2022-04-03 00:00:00 2022-04-03 00:00:00 Orders Only Doctor Unassigned, Foss [facility] 1.840.114 350.1.13.10 4.2.7.2.686 [id number] [facility] 2022-04-02 12:45:00 2022-04-02 14:18:13 Outpatient LOUISE LANGSTON [facility] [id number] [facility] 2022-04-02 12:45:00 2022-04-02 14:18:13 Office Visit Provider, Wilbert Sotomayor Kathryn C [facility] QUANTITATIVE [facility] & [facility] 1.840.114 350.1.13.10 4.2.7.2.686 [id number] [facility] 2022-04-01 09:00:00 2022-04-01 09:00:00 Outpatient WILBERT MUNGUIA [facility] [id number] [facility] 2022-01-21 13:15:00 2022-01-21 13:15:00 Outpatient PETE CONNOR [facility] [id number] [facility] 2022-01-16 00:00:00 2022-01-16 00:00:00 Jamie Carroll [facility] QUANTITATIVE [facility] 1..840.114 350.1.13.10 4.2.7.2.686 [id number] [facility] 2022-01-15 00:00:00 2022-01-15 00:00:00 Patient Secure Msg Doctor Unassigned, Foss [facility] 1.840.114 350.1.13.10 4.2.7.2.686 [id number] [facility] 2022-01-14 00:00:00 2022-01-14 00:00:00 Outpatient GUY GONZALEZ [id number] [facility] 2022-01-01 00:00:00 2022-01-01 00:00:00 Patient Secure Msdereck Wilbert Willoughby [facility] QUANTITATIVE [facility] & [facility] 1.2.840.114 350.1.13.10 4.2.7.2.686 [id number] [facility] 2021-12-31 00:00:00 2021-12-31 00:00:00 Telephone Jamie Wall [facility] QUANTITATIVE [facility] 1.2.840.114 350.1.13.10 4.2.7.2.686 [id number] [facility] 2021-12-31 00:00:00 2021-12-31 00:00:00 Telephone Wilbert Willoughby [facility] QUANTITATIVE [facility] 1.2.840.114 350.1.13.10 4.2.7.2.686 [id number] 107 [id number] [facility] 2021-12-30 14:30:00 2021-12-30 16:19:20 Office Visit Provider, RadhaRmchJamie Moseley [facility] QUANTITATIVE [facility] 1.2.840.114 350.1.13.10 4.2.7.2.686 [id number] [facility] 2021-12-30 14:30:00 2021-12-30 16:19:20 Outpatient JAMIE GAYTAN EMILY [facility] [id number] [facility] 2021-12-30 14:30:00 2021-12-30 14:30:00 Outpatient JAMIE GAYTAN EMILY [facility] [id number] [facility] 2021-12-18 09:45:00 2021-12-18 09:45:00 Outpatient GRANT MUNGUIANDA [facility] [id number] [facility] 2021-12-03 13:00:00 2021-12-03 13:00:00 Outpatient Alannah WILLOUGHBY WILBERT [facility] [id number] [facility] 2021-12-02 00:00:00 2021-12-02 00:00:00 Patient Secure Msg Willoughby, Wilbert Jaffe [facility] QUANTITATIVE [facility] 1.2.840.114 350.1.13.10 4.2.7.2.686 [id number] [facility] 2021-12-02 00:00:00 2021-12-02 00:00:00 Telephone Wilbert Willoughby [facility] QUANTITATIVE [facility] 1.2.840.114 350.1.13.10 4.2.7.2.686 [id number] [facility] 2021-12-01 13:30:00 2021-12-01 13:30:00 Outpatient Alannah WILLOUGHBY WILBERT [facility] [id number] [facility] 2021-12-01 13:30:00 2021-12-01 13:30:00 Outpatient Alannah WILLOUGHBY WILBERT [facility] [id number] [facility] 2021-11-13 00:00:00 2021-11-13 00:00:00 Telephone WilloughbyWilbert [facility] QUANTITATIVE [facility] 1.2.840.114 350.1.13.10 4.2.7.2.686 [id number] [facility] 2021-11-11 14:45:00 2021-11-11 16:08:19 Outpatient Alannah WILLOUGHBYWILBERT [facility] [id number] [facility] 2021-11-11 14:45:00 2021-11-11 16:08:19 Office Visit Wilbert Willoughby [facility] QUANTITATIVE [facility] 1.0.114 350.1.13.10 4.2.7.2.686 [id number] [facility] 2021-11-11 00:00:00 2021-11-11 00:00:00 Orders Only Doctor Unassigned, Foss [facility] 1.0.114 350.1.13.10 4.2.7.2.686 [id number] [facility] 2021-04-07 00:00:00 2021-04-07 00:00:00 Patient Secure Msg WilloughbyWilbert [facility] QUANTITATIVE [facility] 1..114 350.1.13.10 4.2.7.2.686 [id number] [facility] 2021-03-21 14:45:00 2021-03-21 14:45:00 Outpatient PETE CONNOR [facility] [id number] [facility] 2021-03-20 00:00:00 2021-03-20 00:00:00 Telephone Pete Owens [facility] QUANTITATIVE [facility] 1..114 350.1.13.10 4.2.7.2.686 [id number] [facility] 2021-03-19 14:45:00 2021-03-19 14:45:00 Outpatient JAMIE HOPPER [facility] [id number] [facility] 2021-03-18 15:15:00 2021-03-18 15:15:00 Outpatient JAMIE HOPPER [facility] [id number] [facility] 2021-03-16 22:39:00 2021-03-17 01:20:00 Emergency Sam Chase [facility] 1..114 350.1.13.10 4.2.7.2.686 [id number] [facility] 2021-02-20 00:00:00 2021-02-20 00:00:00 Telephone Demetrio Lara [facility] 1.2.840.114 350.1.13.10 4.2.7.2.686 [id number] [facility] 2021-02-19 02:37:00 2021-02-19 03:44:00 Emergency Paige Melissa Puja [facility] 1.2.840.114 350.1.13.10 4.2.7.2.686 [id number] [facility] 2020-09-10 00:00:00 2020-09-10 00:00:00 Patient Outreach Juan Marshall [facility] 1.2.840.114 350.1.13.10 4.2.7.2.686 [id number] 2020-09-10 00:00:00 2020-09-10 00:00:00 Patient Outreach Juan Marshall [facility] 1.2.840.114 350.1.13.10 4.2.7.2.686 [id number] [facility] 2020-08-27 10:30:00 2020-08-27 10:30:00 Outpatient WILBERT MUNGUIA [facility] [id number] [facility] 2020-08-26 13:30:00 2020-08-26 13:30:00 Outpatient Alannah [facility] [id number] [facility] 2020-07-11 13:15:00 2020-07-11 13:15:00 Outpatient WILBERT MUNGUIA [facility] [id number] [facility] 2020-06-27 15:21:42 2020-06-27 16:19:38 Office Visit Wilbert Willoughby [facility] 1.2.840.114 350.1.13.10 4.2.7.2.686 [id number] 2020-06-27 15:21:42 2020-06-27 16:19:38 Office Visit Wilbert Willoughby [facility] 1.2.840.114 350.1.13.10 4.2.7.2.686 [id number] [facility] 2020-06-27 15:30:00 2020-06-27 15:30:00 Outpatient R CASE MCKINLEYJAYLIN [facility] [id number] [facility] 2020-06-05 15:15:00 2020-06-05 15:15:00 Outpatient MCKINLEY MUNGUIACATHY [facility] [id number] [facility] 2020-03-29 00:00:00 2020-03-29 00:00:00 Patient Secure Msg Doctor Unassigned, Foss [facility] 1.2.840.114 350.1.13.10 4.2.7.2.686 [id number] [facility] 2020-03-27 19:22:00 2020-03-28 00:39:00 Emergency Sam Chase [facility] 1.2.840.114 350.1.13.10 4.2.7.2.686 [id number] [facility] 2019-12-05 01:22:11 2019-12-05 03:48:00 Emergency Radha Hawkins [facility] 1.2.840.114 350.1.13.10 4.2.7.2.686 [id number] [facility] 2019-12-05 01:22:11 2019-12-05 03:48:00 Emergency RADHA AZAR [facility] E[facility] [id number] [facility] 2019-11-15 19:21:57 2019-11-16 00:00:00 Emergency Sam Chase [facility] 1.2.840.114 350.1.13.10 4.2.7.2.686 [id number] [facility] 2019-11-15 19:21:57 2019-11-16 00:00:00 Emergency X Sam CHASE [facility] ERT [id number] [facility] 2019-10-19 04:35:17 2019-10-19 06:17:00 Emergency Luisa Ma [facility] 1.2840.114 350.1.13.10 4.2.7.2.686 [id number] [facility] 2019-10-19 04:35:17 2019-10-19 06:17:00 Emergency X LUISA MA [facility] ERT [id number] [facility] 2019-08-31 03:53:07 2019-08-31 05:03:00 Emergency Jessica Bob [facility] 1.2840.114 350.1.13.10 4.2.7.2.686 [id number] [facility] 2019-08-31 03:53:07 2019-08-31 05:03:00 Emergency X JESSICA BOB [facility] ERT [id number] [facility] 2019-06-09 16:17:18 2019-06-09 19:21:00 Emergency X MANAN PÉREZ III [facility] ERT [id number] [facility] 2019-01-29 15:09:14 2019-01-29 18:22:00 Emergency Manan Pérez [facility] 1.2.840.114 350.1.13.10 4.2.7.2.686 [id number] [facility] 2019-01-29 00:00:00 2019-01-29 00:00:00 Orders Only Doctor Unassigned, Foss [facility] 1.2.840.114 350.1.13.10 4.2.7.2.686 [id number] [facility] Results Test Description Test Time Test Comments Results Resul t Comments Source XR KUB 2024-05-10 00:52:53 EXAM: XR KUB HISTORY: 28 years-old Female; abd pain post colonoscopy Upright. TECHNIQUE: Frontal views of the abdomen and pelvis COMPARISON: CT abdomen pelvis 01/25/2023, CT abdomen pelvis 03/27/2020 [facility] [facility] [id number] 17:32:00* Test Item Value Reference Range Interpretation Comme nts POCT PREG (test code = 1605) Negative On board controls acceptable with C Line (test code = 3574) Yes POCT PREG LOT # (test code = 3575) POCT PREG TEST DATE ( test code = 3576) Lab Interpretation (test cod e = 19646-0) Normal [facility] MOLECULAR [id number] 21:52:51* Test Item Value Reference Range Interpretation Comme nts POCT Molecular Strep (test c ode = 72700-6) Negative Negative Lab Interpretation (test cod e = 67935-6) Normal [facility] SARS-COV-2 ANTIGEN (BINAX NOW)2024-02-17 21:42:00* Test Item Value Reference Range Interpretation Comme nts POCT SARS-COV-2 ANTIGEN (test code = 46929-1) Not Detected Not Detected, See Comment On board controls acceptable with C Line (test code = 3574) Yes Lab Interpretation (test code = 46838-2) Normal [facility] [id number] 14:17:00* Test Item Value Reference Range Interpretation Comme nts POCT PREG (test code = 1605) Negative On board controls acceptable with C Line (test code = 3574) Yes POCT PREG LOT # (test code = 3575) POCT PREG TEST DATE ( test code = 3576) [facility]/[id number] 18:24:24 Ordered by an unspecified provider.[facility]/[id number] 18:24:24Ordered by an unspecified provider.[facility] CenterREF[facility]- [facility]/[id number] 18:24:24Ordered by an unspecified provider.[facility] Test 2023-08-20 19:56:00* Test Item Value Reference Range Interpretation Comme nts POCT PREG (test code = 1605) Negative On board controls acceptable with C Line (test code = 3574) Yes POCT PREG LOT # (test code = 3575) POCT PREG TEST DATE ( test code = 3576) [facility] [id number] 19:56:00* Test Item Value Reference Range Interpretation Comme nts POCT PREG (test code = 1605) Negative On board controls acceptable with C Line (test code = 3574) Yes POCT PREG LOT # (test code = 3575) POCT PREG TEST DATE ( test code = 3576) [facility] CenterTOTAL BETA HCG [id number] 22:07:50* Test Item Value Reference Range Interpretation Comme nts BETA HCG (test code = 9719650047) 7.37 See_Comment [Automated [employer] ge] The system which generated this result transmitted reference range: Non- female and male patients: <5 mIU/mL. The reference range was not used to interpret this result as normal/abnormal. MARCELINO (test code = MARCELINO) Gestational Age ?Range (mIU/mL) 1-10 ?Weeks ?[id number] Weeks ?95345-43652637-31 Weeks ?3444-78272911-01 Weeks ?0295-411131 Biotin has been reported to cause a negative bias, interpret results relative to patient's use of biotin. [facility]. METABOLIC PANEL (85646)2023-08-13 21:50:11* Test Item Value Reference Range Interpretation Comme nts NA (test code = 5319506211) 139 mmol/L 135-145 K (test code = 5184091568) 4.0 mmol/L 3.5-5.0 CL (test code = 5763809600) 108 mmol/L 98-108 CO2 TOTAL (test code = 7084396173) 25 mmol/L 23-31 AGAP (test code = 9470293281) 6 2-16 BUN (test code = 2612777372) 11 mg/dL 7-23 GLUCOSE (test code = 7014384489) 93 mg/dL 70-110 CREATININE (test code = 2160-0) 0.61 mg/dL 0.50-1.04 TOTAL BILI (test code = 5146026387) 0.5 mg/dL 0.1-1.1 CALCIUM (test code = 1474640934) 8.7 mg/dL 8.6-10.6 T PROTEIN (test code = 7674579293) 8.1 g/dL 6.3-8.2 ALBUMIN (test code = 8589382255) 4.1 g/dL 3.5-5.0 ALK PHOS (test code = 2871926409) 71 U/L 34-122 ALTv (test code = 1742-6) 18 U/L 5-35 AST(SGOT) (test code = 1915719958) 28 U/L 13-40 eGFR (test code = 01182-4) 124.3 mL/min/1.73m2 CKD-EPI eGFR (20 21). Assuming creatinine has been stable day-to-day for at least three months, the eGFR indicates Category G1 (>= 90 mL/min/1.73 m2) [facility] WITH [id number] 21:38:26* Test Item Value Reference Range Interpretation [...] g/dL 31.6-35.1 L RDW-SD (test code = 03909-7) 49.0 fL 39.0-49.9 RDW-CV (test code = 788-0) 16.7 % 12.0-15.5 H PLT (test code = 777-3) 416 166-358 H MPV (test code = 30788-4) 10.0 fL 9.5-12.9 NRBC/100 WBC (test code = 7864380975) 0.0 0.0-10.0 NRBC x10^3 (test code = 3120435782) See_Comment [Automated messa ge] The system which generated this result transmitted reference range: 10*3/?L. The reference range was not used to interpret this result as normal/abnormal. GRAN MAT (NEUT) % (test code = 770-8) 62.4 % IMM GRAN % (test code = 9984526466) 0.20 % LYMPH % (test code = 736-9) 27.3 % MONO % (test code = 5905-5) 8.1 % EOS % (test code = 713-8) 1.1 % BASO % (test code = 706-2) 0.9 % GRAN MAT x10^3(ANC) (test code = 9921775030) 3.54 10*3/uL 1.88-7.09 IMM GRAN x10^3 (test code = 7804222458) 0.00-0.06 LYMPH x10^3 (test code = 731-0) 1.55 10*3/uL 1.32-3.29 MONO x10^3 (test code = 742-7) 0.46 10*3/uL 0.33-0.92 EOS x10^3 (test code = 711-2) 0.06 10*3/uL 0.03-0.39 BASO x10^3 (test code = 704-7) 0.05 10*3/uL 0.01-0.07 Lab Interpretation (test code = 18271-2) Abnormal [facility] CenterType and Screen - ONCE [id number] 21:33:00 * Test Item Value Reference Range Interpretation Comme nts ABO & RH (test code = 20) A Positive IAT (test code = 1185) Negative [facility] CenterPO[facility] W SPECIFIC [id number] 21:39:00* Test Item Value Reference Range Interpretation [...] U APPEAR (test code = 3267) .. [facility]PO[facility] W SPECIFIC [id number] 21:39:00* Test Item Value Reference Range Interpretation [...] U APPEAR (test code = 3267) .. [facility] CenterSURGICAL PATHOLOGY [id number] 20:00:41* Test Item Value Reference Range Interpretation Comme nts Case Report (test code = 4393812017) Surgical Pathology ?Case: [id number] ? Authorizing Provider: ?Bandar Baca MD ? Collected: ? 04/26/2023 0816 ?Ordering Location: ? ? [facility] OR ? Received: ?04/26/2023 1015 ? Department ? Pathologist: ? Olga Hearn MD ?Specimen: ? ?ENDOMETRIUM, ENDOMETRIAL CURETTINGS ? Final Diagnosis (test code = 9977062694) [id number] FuZzEwMzNcZnRuYmpcdWMx DXbuhsDfVGhctRshITY6NN LqWB4gdFkznKk6bAdfTFCy hwS3qZQhAXrdb2ucDLI7a2 gfeenvTNDsJXacWx3mrAEa wPunZaPwEQKaGKw9dY98LD KjaT2idLYxHGy2UDUliBQt zoHkRpQtOOMxjKBgwBP7GZ AyHI0fjbseOWapJGmfFFBi grX9YIFjtZEiW3ZnPHNwSN 4suoonNNF5GXibWYWoHIQ3 InEdTOGmu8Vipoh4NgFuvX FyZFxwbGFpblxmczIwXHBh ciBBLiBFTkRPTUVUUklVTS waQ5YNXPUYCZnJMyzkUIZc IULtZQCgNZZMD6xJUoVFIY AUWdFhQU9CY13IDSSSBV8e cGFyXHBhciBIYXNhbmFpbi WVLtR3xMpyPwPuqoOCKFTv biwgTUQgIFxwYXJcZnMyMi ZWdZlmUT2nVFTgmuJuqffk TUQgIDExLzcvMjAyMyAgMj owMCBQTVxwYXJccGFyZFxm cgTfWQUintxhQLE8w0bnkB YxXHNzdGVjZjIyMDAwXGFu f9zpSOMmyEVwUnLkNpTpFb XdFugeoVPwLFRcNsXkl5ct c107hSDeg0scGNKrCdZ4zX IvKKBoiDkafcp5fBmmUoAd YUBcz2zwzvQrSeUtMQSoTM SiUTBgsEImY051YCAgQJax b9hoa3EcXXTmzKOnc9M8YG CYIXmfYqAyC727w0xkv8ge dwGrdKM3JWZcRIC3CRzrcy CixlO6UViyyUAcEpI7ZLwo ceLuNNnkduDqooAvCkn3JX TaQ489JLJ3hDiog0llORS7 PCMyCPKfEdbfOs1vqUKxY3 44YGZkYMRAAPVwjUv5RVRz bdHsegDavQGUc126P224t0 wfZKRxbyNisStJjzaiq2gq K287UJJxxJGobwDiSpGxUZ IubNNcxFF2ZHTtOM2uxmki UCnwMQriRQKdssJ5KPOswT SxH7GgSYDzNX7ahmlsJRP3 HRqyHCDeRRD4WfRtGASuf8 Yvpcl4LtYhba6ljq56IND1 v2JtoOvtZMN3NAG6WhYcLn 0qzMGzRZIqIN7yYaBuqOAk LUXwrg10rQzsEBvzpnFuuS 9tCwCjWREobHCjEXGcUH7e sDBoCFRbrM4liqgmERXcVy VrwpoiZPOroEtjbxAjYu7m yLmiLTS4PUgvA4ljjF9qKz S7BVcrQ4lkfQ2vLDk3FKym zLK2SPUhdY7kBE7brwgrj3 upVJpdSEqpGSMhjhY6oyW6 LGAwbCKsV5OzkH3nLJLmDW 2ctiegi0doZEQ1KMmsWUYu TQZ1FbTwLLChi7Ubzzp2Df Ies3HvfHRrWVwcF39di925 VROdafLhG4wyhPRlivvczK RklsjvWOesuqJ5DNJsSQLl YWluXGYxXGZzMjBcbGFuZz EwMzNcaGljaFxmMVxkYmNo PMGwMPyeE7onJjVcN0CqHC AgJuQhgKMeQVwnmVR3EJTb RCIaz64bnGj8XFZjvjyja9 VsZLTjuUFxkQNljG7bnwZq j7yjLJKpCTSkRZOgM6LoYG E0eADjAAHsbEGsbAN4MH5l sjBlTH5zMNUfTjvmilFygZ GxcgUiVJGtWRmkf9mgLE1r LUNpfFuqwV8ecRH6XSObp6 jfaKIkfEIpw5wgr4VksxDz ZShzKSBtYXkgYXBwZWFyIG 7gLPHpjVLrodKjc4J0Afjf cZXzqiyoDdtdzeM0DEufkm caAUSdIMriJ0bpYfOiKJVl uIunHdurm4RnTIVgMAOaTe hccGFyfX0= Clinical Information (test code = 1713805992) Abnormal uterine bleeding [N93.9] Gross Description (test code = 7058117165) p0cymRQeVTZoiXIAPCT5KY VfFR2ttKihhMg6cTnfOWPi teW2oGBjZSbfe2zaVJQ5c4 rtpzFEVymeEWWeNJ9tAYng YVIkKY9gZsPgWPWrCnYpPE BhcGVydzEyMjQwXHBhcGVy xXH6SVQhQI2vzrrgGQsrTO gcEZSopaL2FKUimKPbR7Fx ENRvNG9sscqgJOS9IFKSBr erEe6rrJPumVsnDfJtCvMc YXJzZXQwXGZuaWwgQXJpYW x1iF1MPrzaIQO9TEJSYjev OdoysDcku6TljJPyJTGaQN xcaWQgNTEwMDAgXFxkYiBP HvLySxA3MWftJrE0WuN1DD n2SPRMHBHkAjj7TXW7JlJ1 LXc5YAPqMD2uWIjrqPIcOI tnNuzpURixO477RPorNNUb T6EcV3RoOZfjIvBxHBpuEA DwJIPkAWrmUUQzA5EOAJNn HIo6SzNeFACnQMv8DMfxI2 MPDFYcCVA6ZZZ6IIG3BoG6 HJg9IQXFAw7oVPg5DCM6FH E1KCR6FAz1NhIqGORfJgPj RLQtSGFzTDtviAEvWU1deI mtKBSqSD3AMJHrHTdqKYUe ZlLdO2DJI6yEYA0xZFqsnW JjaFxmczIyXHBhciANClxw QPJzAH4CZIYdIXuaWMe3qi PgTTPiWuGmJHFnZ39zv5QK z5MfAN4KYVx3ygUikqEEPw NwZWNpbWVuIEEgaXMgcmVj MOb6VKWoUaHxc3eywQEqKR azQGT4nXIpFGRuHGAxNBFq IW12J0LchwOlXFnzZAjxfs VwEcQvPUFtqbVliKE3hkjf bCBjdXJldHRpbmdzIiBhbm EtL22jg6ktkEKaa6VmFYO1 iUz2LBVuBXKoNAZxK3rvd0 w7jJAcG4asTNttoQTlt5Mg pTYsTAVqjzbfnDUnLRl6qY TwSOGoVjQlbFhhc1CfDUIu TJffLP34owBiMO66ZIbtBN 7lGEhzDF3eWHAtMEuzCCRu B1QwX0B7FEusPPXdQNIxoK FyvD3yhoHserXpmAw9VIGd ASN7mIPdmBjqTSElOwwaiF B9RBQvYgOqnsXgg6ToqFk3 gUFoAIxrZIAdiN0xvP0kDA EuXHBhciANClxwYXIgDQpc p3IvNTqmuRzgGUZhXmQoBI fWHEE1HTLfviYkzHcdDSWR QSAoQVNDUCkNClxlcGljTm BwpEKcYxV6TKSdfXPkZOD6 OE3suJnkVRRnG3EtB3Qcra X6ALZdfyKROpnuIILcFK7Y fQ== Disclaimer (test code = 8647763171) i8wcbFEjKHHaq9esONZssH FuZzEwMzNcZnRuYmpcdWMx BGeoeyXtTOncd5CjL1CtFr AwMFxhbnNpXGRlZmxhbmcx QIDtMKS4nnRkBGNrQVqhAO MuRAolFl8zfWDiyInmOtHm FISyb2tjshIKHHprFlBcZ8 76XGHxFQjqp7rts7UgIVFe fWYez2G4XTFBqzqfpEg0bL lkQ10ml7Y8FgadL4shIQXi HCChO0UrXZ8cPEXzKfu7EN T6QDL3ZAWfBGNtO2VaOH6n INBhdIWlCBt4r7fjxLrcYK UeMXO4k7qrWXkzyxEjZQ2y uk4glJo0r9fnbiDdIZVqHE AabADTRTRcJ0BukFgoWj8f hOm7iYwtUwvuEDA1Nph2VA 0wyq47qdz9fLsnYPXjtmcw IaX5LZlfGXXmebzfORx5RK biIJDrgJT3PAPieYTgW7Xe WVRgKK2uvle2YJR4SEdiXD NwQqM2VIBbvCYzYYAnbGae MXiyw459QXR8UqUhLP7yZ1 Gmp4X0mY6qdISbKMAkbWGt XhCeVESwku4grZWvHDqyp8 GaOXO2flW5fBXdzJXaJEXm QX99Gboga3WjVwjwm3ZbN1 4buVU6IQote3lxKA9kQsK3 rgOgMLeva2xhuB8sRkW0IO yoIE6tUU3kXDSdfL4hikwx XHBnYnJkcmhlYWRccGdicm WtIx2xdRynFFS8POaaR6oy tK0jTbI7ETgyM8yuyE1lAS k5TNfzzIP9SHOutS1wXF4k eltbd3bxQRnfSXbaQNHxye P5mtC8FOHzzPXcM0YbfJ1f GVYzHN1hodpik8ktQLW5TX oeHEJhPCX0IgNiNKUec2Td qlx0GiAbs7MkmFRbVPqqW6 8fb403YYZyidLcT6xptVZq efsocNRayytiCIdygiB9AK HtnyWwg3BvBCUbYBW3PZgj QJlijXPeRDSraYnid2naI2 RscGFyXHBsYWluXGYxXGZz MjBcbGFuZzEwMzNcaGljaF xdGGcpYtTvQJCmENtoE7za GgHfI9FpQNNrIwJqmWBbQ6 ggVGhpcyByZXBvcnQgbWF5 KKieJ6t5TCVxvpYbhSw4tz PyDbYvBREzKEL7YHetvMHv OYVju7WmdoxgySSjZb1evJ BpRRMcnR5sMASeJGEeBMwb GQ3wcGb0YKQXjYDvqPDwCi COFMZbBY54jnFnJDJBamfk e4U5CUerACIte3SfrXRoS0 adk4UbHLQkd92kYZ2oo6X6 n8vjHCY4UJ8kc5UxELNxgZ YpeXAjOLVwt7Ipmhdef1Sm VQQqkySvf8AnBMFdfcExeP IwTHZfezIrbd6ttrKnZGLu TAWnL4BpmdlkpQrbxfJsQG Ecaw5cjtMtGGV3ATVOOWUf NSTlv6CuzX4asYMHLFK5iR Dlqk6qkkQMbYJaLRExdx07 NVZoFT1aA5hrRRPjSZYscd PytIVft2UzZSNpfAZ6gTHf WH9UPnDNn67sWIZqIKFLfc StUCJlxHavuHY5icY9aP2w IChGREEpLlx+IFRoZSBGRE WqKV4rcqLiz7YawoHqpZjm DHIpgUPhi2IcxUJlx1AzdP bzk1EnaLLwxMZsQJ0vVVYs clxwYXIgVVRNQiBMYWJvcm T7c6EnDINbCPIzNXK7iDiy hsw2TGCqpR2rRVDrI5ubtu zaVYibQIPts7SscH2znIXR aQNdq7IhbQVplBUZnQUoOJ 3ceoWpFJfWMBrYGUP2mbNh AGEja9JbACncI6kuC27hgV giwFi0lNW8RZD0zK2wGdp+ IFxwYXJccGFyIEFwcHJvcH XdCVKrdWhcmbZqG9BqeyHc fI2gjRIkslRcYQ1lCW5mV4 T8aFCzJHLdlrWcz6yyPHjr dmUgYmVlbiByZXZpZXdlZC Plk4YjZSedKBC7EKshohFg bmNsdWRpbmcgSCZFLCBTcG JrsVWtNYU0ACttacKtzcZb KZ4npT5zmIophG3anXXnhM X2zhquNIZrKJRpkUggUHUx GH1lqBmuaZ7uZaHcMuWmEJ iaQH8hSLFyY6mcmTDrAYIr QNHzB3wbCxEqdX8mkDpcPP xjZjJcZnMyMFxwYXJccGFy XHBsYWluXGYxXGZzMjBcbG FuZzEwMzNcaGljaFxmMVxk XmVnLAGzIHepQ4bpKzCdJ6 LuKHUeCcAfdMYyI9prAFtu HHL4IZYmSI5ifLKgIL57nN Ott7qySVuexHvsub4oE80t wXPqXLfdjFfcAEDyw22in7 PcEWPkhzArvg1bPKCqguG9 fK0rGRRjsZobGNLmkUNcUL Lfq1CaVVitrFWfsmFxCAlx CQZbDYRcyOMhutP8rfUxsd CpreGhSFYsmMnsNSVvy1My VCHoZLkra9Vtwa5jjOWnCB HizxXXzDanvZZreG7tB3Mz DIKaBUBmoq7jCAOsuF6uIX yoe9ImhtboRRWhMUJyQBYk swIjcb3iMXWdrQYPLN8KCF pqaLPez8TjdiVoX3hNYHI4 NUQwNjYwMjgxKSBleGNlcH GxDUIewh90YHAyeS9ixZck QDYgeD1miL6daSsvbX5zTq FqDnUvDBnnDI1mHCRsW8tk uTTzPBOiEGQlK3leIbMocR 9jaFxmMVxjZjJcZnMyMFxw YXJ9fQ== Embedded Images (test code = 3748811924) [facility] [id number] 11:43:00* Test Item Value Reference Range [facility]ation [facility] (test code = 1605) Negative On board controls acceptable with C Line (test code = 3574) Yes POCT PREG LOT # (test code = 3575) POCT PREG TEST DATE ( test code = 3576) Lab Interpretation (test cod e = 96060-0) Normal [facility] SCREEN[facility] [id number] 17:39:58* Test Item Value Reference Range Interpretation [facility] S[facility]EN (test code = 2026701235) Normal Normal MARCELINO (test code = MARCELINO) Normal G6PD activity. ?No evidence of G6PD deficiency. Lab Interpretation (test code = 71856-6) Normal [facility] CenterQUANTIFERON TB ASSAY [id number] 18:27:02* Test Item Value Reference Range Interpretation [facility] QFT Gold Plus Result (test code = 10338-7) Negative Negative MARCELINO (test code = MARCELINO) [...] /publications/guidelin es/default.htm. Lab Interpretation (test code = 34080-6) Normal [facility] CenterTHIOPURINE METHYLTRANSFERASE, [id number] 03:08:32* Test Item Value Reference Range Interpretation Comme nts THIOPURINE METHYLTRANSFERASE, RBC (test code = 83823-4) 27.1 U/mL 24.0-44.0 INTERPRETIVE INF ORMATION: Thiopurine [...] developed and its performance characteristics determined by [facility]. It has not been cleared or approved by the [place] Food and Drug Administration. This test was performed in a CLIA certified laboratory and is intended for clinical purposes.Performed By: [facility] [place] [id number] Director: Alex Adrian MD, PhDCLIA Number: [id number] [facility] CenterQUANTIFERON-TB [id number] 21:43:02* Test Item Value Reference Range Interpretation Comme nts Extra Tube (test code = 5447692770) Received in Lab [facility] CenterLUPUS ANTICOAGULANT REFLEXIVE [id number] 20:21:52* Test Item Value Reference Range Interpretation Comments Prothrombin Time (test code = 5902-2) 13.0 See_Comment [Automated message] The system which generated this result transmitted reference range: 12.0 - 15.5 sec. The reference range was not used to interpret this result as normal/abnormal. PTT-LA Screen (PTT-D) (test code = 35697-6) 43 See_Comment [Automated messa ge] The system [...] normal/abnormal. PTT-D Heparin Neutralized (test code = 44302-2) Not Applicable See_Comment [Automated messa ge] The [...] Platelet Neutralization (PTT-D, Confirm) (test code = 55555-1) Not Applicable Negative dRVVT Screen (test code = 6303-2) 31 See_Comment L [Automated messa ge] The system which generated this result transmitted reference range: 33 - 44 sec. The reference range was not used to interpret this result as normal/abnormal. dRVVT 1:1 Mix (test code = 01108-6) Not Applicable See_Comment [Automated messa ge] The system which generated this result transmitted reference range: 33 - 44 sec. The reference range was not used to interpret this result as normal/abnormal. dRVVT Confirmation (test code = 13721-7) Not Applicable Negative ratio Hexagonal Phospholipid Neutral Reflex (test code = 77932-8) Not Applicable Negative Lupus Anticoagulant Interpretation (test code = 43587-0) See Note Lupus anticoagul ant not detected.The [...] testing has not already been performed.Performed By: [facility] [place] [id number] Director: Alex Adrian MD, PhDCLIA Number: [id number] Lab Interpretation (test code = 35062-6) Abnormal [facility]-CNFPRIYWEOYQYMHKJ0645-41-14 15:04:39* Test Item Value Reference Range Interpretation Comme nts Anti-Ribonucleoprotein (test code = 3472501728) Negative Negative MARCELINO (test code = MARCELINO) Positive - Antibod y detected.Negative - No antibody detected. Lab Interpretation (test code = 33525-0) Normal [facility]-DUMONT(SM)2023-04-11 15:04:39* Test Item Value Reference Range Interpretation Comme nts Anti-Dumont (test code = 7853805012) Negative Negative MARCELINO (test code = MARCELINO) Positive - Antibod y detected.Negative - No antibody detected. Lab Interpretation (test code = 45058-5) Normal [facility]-SSA(RO)2023-04-11 15:04:39* Test Item Value Reference Range Interpretation Comme nts ANTI-SSA(RO) (test code = 1232343195) Negative Negative MARCELINO (test code = MARCELINO) Positive - Antibod y detected.Negative - No antibody detected. Lab Interpretation (test code = 19441-7) Normal [facility]-SSB(LA)2023-04-11 15:04:39* Test Item Value Reference Range Interpretation Comme nts Anti-SSB(LA) (test code = 1590841294) Negative Negative MARCELINO (test code = MARCELINO) Positive - Antibod y detected.Negative - No antibody detected. Lab Interpretation (test code = 00388-9) Normal [facility]-DOUBLE STRANDED [id number] 15:04:38* Test Item Value Reference Range Interpretation Comme nts ANTI-DSDNA (test code = 4069641020) See_Comment [Automated message] The system which generated this result transmitted reference range: 0.0 - 4.0 IU/mL. The reference range was not used to interpret this result as normal/abnormal. MARCELINO (test code = MARCELINO) Negative ? ?< or = 4 IU/mLPositive ? ? ?> or = 10 IU/mLIndetermin ate ?5-9 IU/mL Lab Interpretation (test code = 24780-4) Normal [facility] CenterVITAMIN D, [id number]-DO2224-13-20 21:32:37* Test Item Value Reference Range Interpretation Comme nts VIT D 25OH (test code = 44197-3) 17 ng/mL 25-80 L MARCELINO (test code = MARCELINO) Deficiency: <20 ng/mLInsufficiency: 20-24 ng/mLOptimal: 25-80 ng/mL Lab Interpretation (test code = 76413-3) Abnormal [facility] CenterC3 YKZJYIKGWD7518-76-12 19:42:07* Test Item Value Reference Range Interpretation Comme nts C3 (test code = 0783401279) 113 mg/dL 86-184 Lab Interpretation (test cod e = 14484-6) Normal [facility] CenterC4 KEFMGDCMXR2156-97-73 19:42:07* Test Item Value Reference Range Interpretation Comme nts C4 (test code = 5927476504) 40 mg/dL 20-59 Lab Interpretation (test cod e = 75045-2) Normal [facility] CenterC-REACTIVE [id number] 19:42:07* Test Item Value Reference Range Interpretation Comme nts CRP (test code = 5920875478) 1.4 mg/dL <=0.8 H Lab Interpretation (test cod e = 99080-7) [facility]normal [facility] [id number] 18:18:12* Test Item Value Reference Range Interpretation Comme nts IRON (test code = 9938129401) 35 ug/dL 50-160 L TIBC (test code = 3029159611) 425 ug/dL 250-410 H % FE SAT (test code = 5754127208) 8 % 20-50 L Lab Interpretation (test cod e = 41979-0) [facility]normal [facility]CRE[facility] [id number] 18:08:29* Test Item Value Reference Range Interpretation Comme nts CK (test code = 2247269603) 31 U/L 33-194 L Lab Interpretation (test cod e = 33220-1) [facility] (31413)2023-01-26 03:18:50* Test Item Value Reference Range Interpretation Comme nts NA (test code = 4205506742) 139 mmol/L 135-145 K (test code = 4008913517) 4.0 mmol/L 3.5-5.0 CL (test code = 3880881310) 103 mmol/L 98-108 CO2 TOTAL (test code = 2318965559) 25 mmol/L 23-31 AGAP (test code = 1342719493) 11 2-16 BUN (test code = 6874360429) 12 mg/dL 7-23 GLUCOSE (test code = 4033079391) 93 mg/dL 70-110 CREATININE (test code = 6031453332) 0.62 mg/dL 0.50-1.04 TOTAL BILI (test code = 7984360109) 0.4 mg/dL 0.1-1.1 CALCIUM (test code = 6496414638) 9.3 mg/dL 8.6-10.6 T PROTEIN (test code = 5606370507) 8.1 g/dL 6.3-8.2 ALBUMIN (test code = 0251673215) 4.4 g/dL 3.5-5.0 ALK PHOS (test code = 1248644966) 89 U/L 34-122 ALTv (test code = 1742-6) 19 U/L 5-35 AST(SGOT) (test code = 1379559174) 34 U/L 13-40 eGFR (test code = 8002110305) 113.8 mL/min/1.73m2 MARCELINO (test code = MARCELINO) [...] or urine or abnormalities in imaging tests). [facility] 03:18:49* Test Item Value Reference Range Interpretation Comme nts LIPASE (test code = 1515658029) 132 U/L 0-220 Lab Interpretation (test cod e = 98625-5) Normal [facility] WITH [id number] 02:53:28* Test Item Value Reference Range Interpretation Comme nts WBC (test code = 6690-2) 8.11 See_Comment [Automated [employer]] The system which generated this result transmitted reference range: 4.30 - 11.10 10*3/?L. The reference range was not used to interpret this result as normal/abnormal. RBC (test code = 789-8) 3.54 See_Comment L [Automated [employer]] The system which generated this result transmitted [...] 31.6 g/dL 31.6-35.1 RDW-SD (test code = 59386-4) 42.7 fL 39.0-49.9 RDW-CV (test code = 788-0) 13.4 % 12.0-15.5 PLT (test code = 777-3) 424 See_Comment H [Automated [employer]] The system which generated this result transmitted reference range: 166 - 358 10*3/?L. The reference range was not used to interpret this result as normal/abnormal. MPV (test code = 20666-8) 9.9 fL 9.5-12.9 IPF % (test code = 3261905310) 2.3 % 1.3-7.7 Platelet count measured by fluorescence method. NRBC/100 WBC (test code = 3409985063) 0.0 See_Comment [Automated [employer]] The system which generated this result transmitted reference range: 0.0 - 10.0 /100 WBCs. The reference range was not used to interpret this result as normal/abnormal. NRBC x10^3 (test code = 7062067038) See_Comment [Automated [employer]] The system which generated this result transmitted reference range: 10*3/?L. The reference range was not used to interpret this result as normal/abnormal. GRAN MAT (NEUT) % (test code = 770-8) 59.8 % IMM GRAN % (test code = 9468276797) 0.60 % LYMPH % (test code = 736-9) 29.3 % MONO % (test code = 5905-5) 8.5 % EOS % (test code = 713-8) 1.2 % BASO % (test code = 706-2) 0.6 % GRAN MAT x10^3(ANC) (test code = 1510565685) 4.84 10*3/uL 1.88-7.09 IMM GRAN x10^3 (test code = 1635157986) 0.05 10*3/uL 0.00-0.06 LYMPH x10^3 (test code = 731-0) 2.38 10*3/uL 1.32-3.29 MONO x10^3 (test code = 742-7) 0.69 10*3/uL 0.33-0.92 EOS x10^3 (test code = 711-2) 0.10 10*3/uL 0.03-0.39 BASO x10^3 (test code = 704-7) 0.05 10*3/uL 0.01-0.07 Lab Interpretation (test code = 86209-2) Abnormal [facility] [id number] 02:03:00* Test Item Value Reference Range Interpretation Comme nts POCT PREG (test code = 1605) Negative On board controls acceptable with C Line (test code = 3574) Yes POCT PREG LOT # (test code = 3575) [id number] POCT PREG TEST DATE ( test code = 3576) 03/26/2024 Lab Interpretation (test cod e = 42146-5) Normal [facility] [id number] 17:54:00* Test Item Value Reference Range Interpretation Comme nts POCT PREG (test code = 1605) Positive On board controls acceptable with C Line (test code = 3574) Yes POCT PREG LOT # (test code = 3575) POCT PREG TEST DATE ( test code = 3576) Lab Interpretation (test cod e = 10387-5) Abnormal [facility] WITHOUT [id number] 04:28:06* Test Item Value Reference Range Interpretation [...] result as normal/abnormal. MPV (test code = 13022-6) 10.9 fL 9.5-12.9 RDW-CV (test code = 788-0) 13.1 % 12.0-15.5 RDW-SD (test code = 07699-5) 42.8 fL 39.0-49.9 NRBC x10^3 (test code = 5304414679) See_Comment [Automated messa ge] The system which generated this result transmitted reference range: 10*3/?L. The reference range was not used to interpret this result as normal/abnormal. NRBC/100 WBC (test code = 4463601000) 0.0 See_Comment [Automated messa ge] The system which generated this result transmitted reference range: 0.0 - 10.0 /100 WBCs. The reference range was not used to interpret this result as normal/abnormal. IPF % (test code = 0187808157) Lab Interpretation (test code = 47299-6) Abnormal [facility] WITHOUT [id number] 04:28:06* Test Item Value Reference Range Interpretation [...] result as normal/abnormal. MPV (test code = 66673-7) 10.9 fL 9.5-12.9 RDW-CV (test code = 788-0) 13.1 % 12.0-15.5 RDW-SD (test code = 81625-3) 42.8 fL 39.0-49.9 NRBC x10^3 (test code = 5751214127) See_Comment [Automated [employer]] The system which generated this result transmitted reference range: 10*3/?L. The reference range was not used to interpret this result as normal/abnormal. NRBC/100 WBC (test code = 2537119715) 0.0 See_Comment [Automated [employer]] The system which generated this result transmitted reference range: 0.0 - 10.0 /100 WBCs. The reference range was not used to interpret this result as normal/abnormal. IPF % (test code = 0033646313) Lab Interpretation (test code = 47726-4) Abnormal [facility] BETA HCG [id number] 19:25:18* Test Item Value Reference Range Interpretation Comme nts BETA HCG (test code = 1302525894) 40477.00 See_Comment [Automated [employer]] The system which generated this result transmitted reference range: Non- female and male patients: <5 mIU/mL. The reference range was not used to interpret this result as normal/abnormal. MARCELINO (test code = MARCELINO) Gestational Age ?Range (mIU/mL) 1-10 ?Weeks ?25-01939765-55 Weeks ?47434-25752260-76 Weeks ?5939-10268040-38 Weeks ?1531-240705 Biotin has been reported to cause a negative bias, interpret results relative to patient's use of biotin. [facility] BETA HCG [id number] 19:25:18* Test Item Value Reference Range Interpretation Comme [facility] BETA HCG (test code = 9118687966) 27449.00 See_Comment [Automated [employer]] The system which generated this result transmitted reference range: Non- female and male patients: <5 mIU/mL. The reference range was not used to interpret this result as normal/abnormal. MARCELINO (test code = MARCELINO) Gestational Age ?Range (mIU/mL) 1-10 ?Weeks ?50-70665597-56 Weeks ?75808-40589198-69 Weeks ?7672-84060658-75 Weeks ?2211-177646 Biotin has been reported to cause a negative bias, interpret results relative to patient's use of biotin. [facility]. METABOLIC PANEL (83278)2023-01-08 16:46:39* Test Item Value Reference Range Interpretation Comme [facility] NA (test code = 1418303829) 136 mmol/L 135-145 K (test code = 5469501647) 3.6 mmol/L 3.5-5.0 CL (test code = 8465089460) 104 mmol/L 98-108 CO2 TOTAL (test code = 8156988533) 23 mmol/L 23-31 AGAP (test code = 4315927249) 9 2-16 BUN (test code = 0003082615) 6 mg/dL 7-23 L GLUCOSE (test code = 2400431337) 97 mg/dL 70-110 CREATININE (test code = 1358450643) 0.49 mg/dL 0.50-1.04 L TOTAL BILI (test code = 7916684325) 0.5 mg/dL 0.1-1.1 CALCIUM (test code = 5400954935) 8.7 mg/dL 8.6-10.6 T PROTEIN (test code = 4521631573) 7.5 g/dL 6.3-8.2 ALBUMIN (test code = 6761464428) 3.9 g/dL 3.5-5.0 ALK PHOS (test code = 1649148118) 61 U/L 34-122 ALTv (test code = 1742-6) 18 U/L 5-35 AST(SGOT) (test code = 6057254704) 23 U/L 13-40 eGFR (test code = 6368053760) 149.3 mL/min/1.73m2 MARCELINO (test code = MARCELINO) [...] imaging tests). Lab Interpretation (test code = 00025-1) Abnormal [facility]. METABOLIC PANEL (22709)2023-01-08 16:46:39* Test Item Value Reference Range Interpretation Comme nts NA (test code = 9415761293) 136 mmol/L 135-145 K (test code = 5687103955) 3.6 mmol/L 3.5-5.0 CL (test code = 6009639500) 104 mmol/L 98-108 CO2 TOTAL (test code = 5555339292) 23 mmol/L 23-31 AGAP (test code = 5167818044) 9 2-16 BUN (test code = 9423996126) 6 mg/dL 7-23 L GLUCOSE (test code = 6731698814) 97 mg/dL 70-110 CREATININE (test code = 8118845654) 0.49 mg/dL 0.50-1.04 L TOTAL BILI (test code = 4552565421) 0.5 mg/dL 0.1-1.1 CALCIUM (test code = 9266005186) 8.7 mg/dL 8.6-10.6 T PROTEIN (test code = 2936825218) 7.5 g/dL 6.3-8.2 ALBUMIN (test code = 0365373522) 3.9 g/dL 3.5-5.0 ALK PHOS (test code = 1290748737) 61 U/L 34-122 ALTv (test code = 1742-6) 18 U/L 5-35 AST(SGOT) (test code = 8829514513) 23 U/L 13-40 eGFR (test code = 3373089053) 149.3 mL/min/1.73m2 MARCELINO (test code = MARCELINO) [...] imaging tests). Lab Interpretation (test code = 61573-7) [facility] Test Item Value Reference Range Interpretation Comme nts LIPASE (test code = 2713859311) 81 U/L 0-220 Lab Interpretation (test cod e = 63066-1) [facility] 16:46:19* Test Item Value Reference Range Interpretation Comme nts LIPASE (test code = 5339119044) 81 U/L 0-220 Lab Interpretation (test cod e = 95398-9) Normal [facility] WITH [id number] 16:37:55* Test Item Value Reference Range Interpretation [...] 33.0 g/dL 31.6-35.1 RDW-SD (test code = 08733-4) 40.9 fL 39.0-49.9 RDW-CV (test code = 788-0) 13.1 % 12.0-15.5 PLT (test code = 777-3) 273 See_Comment [Automated [employer]] The system which generated this result transmitted reference range: 166 - 358 10*3/?L. The reference range was not used to interpret this result as normal/abnormal. MPV (test code = 30529-2) 10.2 fL 9.5-12.9 NRBC/100 WBC (test code = 2705483408) 0.0 See_Comment [Automated [employer]] The system which generated this result transmitted reference range: 0.0 - 10.0 /100 WBCs. The reference range was not used to interpret this result as normal/abnormal. NRBC x10^3 (test code = 3257826745) See_Comment [Automated [employer]] The system which generated this result transmitted reference range: 10*3/?L. The reference range was not used to interpret this result as normal/abnormal. GRAN MAT (NEUT) % (test code = 770-8) 79.1 % IMM GRAN % (test code = 8342524339) 0.30 % LYMPH % (test code = 736-9) 10.3 % MONO % (test code = 5905-5) 8.6 % EOS % (test code = 713-8) 1.2 % BASO % (test code = 706-2) 0.5 % GRAN MAT x10^3(ANC) (test code = 1586600743) 4.78 10*3/uL 1.88-7.09 IMM GRAN x10^3 (test code = 3754610642) 0.00-0.06 LYMPH x10^3 (test code = 731-0) 0.62 10*3/uL 1.32-3.29 L MONO x10^3 (test code = 742-7) 0.52 10*3/uL 0.33-0.92 EOS x10^3 (test code = 711-2) 0.07 10*3/uL 0.03-0.39 BASO x10^3 (test code = 704-7) 0.03 10*3/uL 0.01-0.07 Lab Interpretation (test code = 72169-0) Abnormal [facility] WITH [id number] 16:37:55* Test Item Value Reference Range Interpretation [...] 33.0 g/dL 31.6-35.1 RDW-SD (test code = 45610-9) 40.9 fL 39.0-49.9 RDW-CV (test code = 788-0) 13.1 % 12.0-15.5 PLT (test code = 777-3) 273 See_Comment [Automated messa ge] The system which generated this result transmitted reference range: 166 - 358 10*3/?L. The reference range was not used to interpret this result as normal/abnormal. MPV (test code = 31370-2) 10.2 fL 9.5-12.9 NRBC/100 WBC (test code = 9949211292) 0.0 See_Comment [Automated [employer]] The system which generated this result transmitted reference range: 0.0 - 10.0 /100 WBCs. The reference range was not used to interpret this result as normal/abnormal. NRBC x10^3 (test code = 9490479699) See_Comment [Automated messa ge] The system which generated this result transmitted reference range: 10*3/?L. The reference range was not used to interpret this result as normal/abnormal. GRAN MAT (NEUT) % (test code = 770-8) 79.1 % IMM GRAN % (test code = 7097780804) 0.30 % LYMPH % (test code = 736-9) 10.3 % MONO % (test code = 5905-5) 8.6 % EOS % (test code = 713-8) 1.2 % BASO % (test code = 706-2) 0.5 % GRAN MAT x10^3(ANC) (test code = 4126504764) 4.78 10*3/uL 1.88-7.09 IMM GRAN x10^3 (test code = 8692856561) 0.00-0.06 LYMPH x10^3 (test code = 731-0) 0.62 10*3/uL 1.32-3.29 L MONO x10^3 (test code = 742-7) 0.52 10*3/uL 0.33-0.92 EOS x10^3 (test code = 711-2) 0.07 10*3/uL 0.03-0.39 BASO x10^3 (test code = 704-7) 0.03 10*3/uL 0.01-0.07 Lab Interpretation (test code = 69230-7) [facility] (84245)2023-01-02 04:39:51* Test Item Value Reference Range Interpretation Comme nts NA (test code = 9682506963) 136 mmol/L 135-145 K (test code = 6178100505) 5.0 mmol/L 3.5-5.0 CL (test code = 3385864924) 101 mmol/L 98-108 CO2 TOTAL (test code = 6192893531) 25 mmol/L 23-31 AGAP (test code = 9886834020) 10 2-16 BUN (test code = 8349970322) 9 mg/dL 7-23 GLUCOSE (test code = 9834538115) 81 mg/dL 70-110 CREATININE (test code = 2928779299) 0.46 mg/dL 0.50-1.04 L TOTAL BILI (test code = 2676791055) 0.7 mg/dL 0.1-1.1 CALCIUM (test code = 4285316899) 9.6 mg/dL 8.6-10.6 T PROTEIN (test code = 2483375851) 8.4 g/dL 6.3-8.2 H ALBUMIN (test code = 2424733723) 4.5 g/dL 3.5-5.0 ALK PHOS (test code = 9758848389) 61 U/L 34-122 ALTv (test code = 1742-6) 19 U/L 5-35 AST(SGOT) (test code = 3763697439) 32 U/L 13-40 eGFR (test code = 0468564868) 160.6 mL/min/1.73m2 MARCELINO (test code = MARCELINO) [...] imaging tests). Lab Interpretation (test code = 49864-6) Abnormal [facility] WITH [id number] 04:26:51* Test Item Value Reference Range Interpretation Comme nts WBC (test code = 6690-2) 8.93 See_Comment [Automated messa ge] The system which generated this result transmitted reference range: 4.30 - 11.10 10*3/?L. The reference range was not used to interpret this result as normal/abnormal. RBC (test code = 789-8) 4.16 See_Comment [Automated messa ge] The system which [...] 32.4 g/dL 31.6-35.1 RDW-SD (test code = 70894-3) 42.9 fL 39.0-49.9 RDW-CV (test code = 788-0) 13.2 % 12.0-15.5 PLT (test code = 777-3) 389 See_Comment H [Automated messa ge] The system which generated this result transmitted reference range: 166 - 358 10*3/?L. The reference range was not used to interpret this result as normal/abnormal. MPV (test code = 70231-6) 10.1 fL 9.5-12.9 NRBC/100 WBC (test code = 4912351966) 0.0 See_Comment [Automated [employer]] The system which generated this result transmitted reference range: 0.0 - 10.0 /100 WBCs. The reference range was not used to interpret this result as normal/abnormal. NRBC x10^3 (test code = 8101317827) See_Comment [Automated messa ge] The system which generated this result transmitted reference range: 10*3/?L. The reference range was not used to interpret this result as normal/abnormal. GRAN MAT (NEUT) % (test code = 770-8) 62.8 % IMM GRAN % (test code = 4248779139) 0.30 % LYMPH % (test code = 736-9) 27.4 % MONO % (test code = 5905-5) 7.2 % EOS % (test code = 713-8) 1.7 % BASO % (test code = 706-2) 0.6 % GRAN MAT x10^3(ANC) (test code = 3327496000) 5.61 10*3/uL 1.88-7.09 IMM GRAN x10^3 (test code = 4950009638) 0.03 10*3/uL 0.00-0.06 LYMPH x10^3 (test code = 731-0) 2.45 10*3/uL 1.32-3.29 MONO x10^3 (test code = 742-7) 0.64 10*3/uL 0.33-0.92 EOS x10^3 (test code = 711-2) 0.15 10*3/uL 0.03-0.39 BASO x10^3 (test code = 704-7) 0.05 10*3/uL 0.01-0.07 Lab Interpretation (test code = 37867-9) [facility] [id number] 04:23:00* Test Item Value Reference Range Interpretation Comme nts ABO & RH (test code = 20) A Positive IAT (test code = 1185) Negative [facility] SPECIFIC [id number] 16:06:00* Test Item Value Reference Range Interpretation [...] U APPEAR (test code = 3267) . [facility] [id number] 05:59:00* Test Item Value Reference Range Interpretation Comme nts HCG SERUM (test code = HCG) 68087 mi-IU/ML 0-6 H 0 - 6 NOT PREGNA NT > 6 SUGGESTIVE OF EARLY RISES TWO FOLD EVERY 2 DAYS; SUGGEST RECONFIRMING AFTER 2 DAYS. 150,000-200,[address] TRIMESTER 10,000 - 50,000 2ND & 3RD TRIMESTER CBC W/AUTO [id number] 05:35:00* Test Item Value Reference Range Interpretation [...] = MDIFF) NO DIFF/SCN CRITERIA COMPREHENSIVE METABOLIC [id number] 05:27:00* Test Item Value Reference Range Interpretation [...] calculation forGFR is based on the CKD-EPI (2020) calculation. This formulais race indifferent and is [...] Unit/L 45-117 N POCT URINALYSIS W/O SPECIFIC [id number] 15:38:00* Test Item Value Reference Range Interpretation [...] = 3257) NEG Negative - Negati ve [facility] URINALYSIS W/O SPECIFIC [id number] 15:38:00* Test Item Value Reference Range Interpretation [...] = 3257) NEG Negative - Negati ve [facility] [id number] 15:37:00* Test Item Value Reference Range Interpretation Comme nts POCT PREG (test code = 1605) Positive On board controls acceptable with C Line (test code = 3574) Yes POCT PREG LOT # (test code = 3575) POCT PREG TEST DATE ( test code = 3576) [facility] [id number] 15:37:00* Test Item Value Reference Range Interpretation Comme nts POCT PREG (test code = 1605) Positive On board controls acceptable with C Line (test code = 3574) Yes POCT PREG LOT # (test code = 3575) POCT PREG TEST DATE ( test code = 3576) [facility] [id number] 17:56:00* Test Item Value Reference Range Interpretation Comme nts POCT PREG (test code = 1605) Positive On board controls acceptable with C Line (test code = 3574) Yes POCT PREG LOT # (test code = 3575) POCT PREG TEST DATE ( test code = 3576) [facility] [id number] 17:56:00* Test Item Value Reference Range Interpretation Comme nts POCT PREG (test code = 1605) Positive On board controls acceptable with C Line (test code = 3574) Yes POCT PREG LOT # (test code = 3575) POCT PREG TEST DATE ( test code = 3576) [facility] URINALYSIS W/O SPECIFIC [id number] 16:24:00* Test Item Value Reference Range Interpretation [...] = 3257) Trace Negative - Negati ve [facility] URINALYSIS W/O SPECIFIC [id number] 16:24:00* Test Item Value Reference Range Interpretation [...] = 3257) Trace Negative - Negati ve [facility] [id number] 20:16:00* Test Item Value Reference Range Interpretation Comme nts POCT PREG (test code = 1605) Negative On board controls acceptable with C Line (test code = 3574) Yes POCT PREG LOT # (test code = 3575) POCT PREG TEST DATE ( test code = 3576) [facility] (QUANTITATIVE)2022-09-27 00:50:12* Test Item Value Reference Range Interpretation Comme nts BETA HCG (test code = 4657343316) 2138.50 See_Comment [Automated [employer]] The system which generated this result transmitted reference range: Non- female and male patients: <5 mIU/mL. The reference range was not used to interpret this result as normal/abnormal. MARCELINO (test code = MARCELINO) Gestational Age ?Range (mIU/mL) 1-10 ?Weeks ?49-07540416-69 Weeks ?61233-06391669-90 Weeks ?6838-70058619-97 Weeks ?3081-959704 Biotin has been reported to cause a negative bias, interpret results relative to patient's use of biotin. [facility] (QUANTITATIVE)2022-09-27 00:50:12* Test Item Value Reference Range Interpretation Comme nts BETA HCG (test code = 5419603526) 2138.50 See_Comment [Automated messa ge] The system which generated this result transmitted reference range: Non- female and male patients: <5 mIU/mL. The reference range was not used to interpret this result as normal/abnormal. MARCELINO (test code = MARCELINO) Gestational Age ?Range (mIU/mL) 1-10 ?Weeks ?28-71045468-74 Weeks ?80344-42851503-80 Weeks ?2611-12681842-91 Weeks ?3663-559373 Biotin has been reported to cause a negative bias, interpret results relative to patient's use of biotin. [facility]. METABOLIC PANEL (03761)2022-09-27 00:25:05* Test Item Value Reference Range Interpretation Comme nts NA (test code = 6086861711) 137 mmol/L 135-145 K (test code = 7288134987) 4.3 mmol/L 3.5-5.0 CL (test code = 5179317817) 103 mmol/L 98-108 CO2 TOTAL (test code = 6945089726) 24 mmol/L 23-31 AGAP (test code = 6599107795) 10 2-16 BUN (test code = 2699935926) 9 mg/dL 7-23 GLUCOSE (test code = 1016357359) 88 mg/dL 70-110 CREATININE (test code = 2261059720) 0.54 mg/dL 0.50-1.04 TOTAL BILI (test code = 3120822007) 0.4 mg/dL 0.1-1.1 CALCIUM (test code = 0630089418) 9.4 mg/dL 8.6-10.6 T PROTEIN (test code = 1367449410) 7.9 g/dL 6.3-8.2 ALBUMIN (test code = 9691946126) 4.5 g/dL 3.5-5.0 ALK PHOS (test code = 4738497021) 77 U/L 34-122 ALTv (test code = 1742-6) 18 U/L 5-35 AST(SGOT) (test code = 3395923831) 20 U/L 13-40 eGFR (test code = 2323093530) 133.5 mL/min/1.73m2 MARCELINO (test code = MARCELINO) [...] or urine or abnormalities in imaging tests). [facility]. METABOLIC PANEL (97604)2022-09-27 00:25:05* Test Item Value Reference Range Interpretation Comme nts NA (test code = 9010150178) 137 mmol/L 135-145 K (test code = 8283466696) 4.3 mmol/L 3.5-5.0 CL (test code = 0967239949) 103 mmol/L 98-108 CO2 TOTAL (test code = 5456327630) 24 mmol/L 23-31 AGAP (test code = 7025603935) 10 2-16 BUN (test code = 4816944067) 9 mg/dL 7-23 GLUCOSE (test code = 8736480137) 88 mg/dL 70-110 CREATININE (test code = 2930281765) 0.54 mg/dL 0.50-1.04 TOTAL BILI (test code = 0800481373) 0.4 mg/dL 0.1-1.1 CALCIUM (test code = 3115587510) 9.4 mg/dL 8.6-10.6 T PROTEIN (test code = 2110951870) 7.9 g/dL 6.3-8.2 ALBUMIN (test code = 8303547509) 4.5 g/dL 3.5-5.0 ALK PHOS (test code = 5757660180) 77 U/L 34-122 ALTv (test code = 1742-6) 18 U/L 5-35 AST(SGOT) (test code = 9237266628) 20 U/L 13-40 eGFR (test code = 9347290686) 133.5 mL/min/1.73m2 MARCELINO (test code = MARCELINO) [...] or urine or abnormalities in imaging tests). [facility] / [id number] 00:16:48* Test Item Value Reference Range Interpretation Comme [facility] PROTIME PATIENT (test code = 5964-2) 11.7 [...] the indications. Lab Interpretation (test code = 74498-9) [facility]normal [facility] / [id number] 00:16:48* Test Item Value Reference Range Interpretation Comme [facility] PROTIME PATIENT (test code = 5964-2) 11.7 [...] the indications. Lab Interpretation (test code = 97850-2) [facility] [id number] 00:09:05* Test Item Value Reference Range Interpretation Comme [facility] WBC (test code = 6690-2) 9.64 See_Comment [...] 32.5 g/dL 31.6-35.1 RDW-SD (test code = 97733-3) 42.0 fL 39.0-49.9 RDW-CV (test code = 788-0) 13.3 % 12.0-15.5 PLT (test code = 777-3) 364 See_Comment H [Automated messa ge] The system which generated this result transmitted reference range: 166 - 358 10*3/?L. The reference range was not used to interpret this result as normal/abnormal. MPV (test code = 72927-1) 10.0 fL 9.5-12.9 NRBC/100 WBC (test code = 4652617591) 0.0 See_Comment [Automated [employer]] The system which generated this result transmitted reference range: 0.0 - 10.0 /100 WBCs. The reference range was not used to interpret this result as normal/abnormal. NRBC x10^3 (test code = 3879165517) See_Comment [Automated messa ge] The system which generated this result transmitted reference range: 10*3/?L. The reference range was not used to interpret this result as normal/abnormal. GRAN MAT (NEUT) % (test code = 770-8) 72.5 % IMM GRAN % (test code = 7175208712) 0.30 % LYMPH % (test code = 736-9) 19.0 % MONO % (test code = 5905-5) 6.6 % EOS % (test code = 713-8) 1.2 % BASO % (test code = 706-2) 0.4 % GRAN MAT x10^3(ANC) (test code = 1746280080) 6.98 10*3/uL 1.88-7.09 IMM GRAN x10^3 (test code = 8102660652) 0.03 10*3/uL 0.00-0.06 LYMPH x10^3 (test code = 731-0) 1.83 10*3/uL 1.32-3.29 MONO x10^3 (test code = 742-7) 0.64 10*3/uL 0.33-0.92 EOS x10^3 (test code = 711-2) 0.12 10*3/uL 0.03-0.39 BASO x10^3 (test code = 704-7) 0.04 10*3/uL 0.01-0.07 Lab Interpretation (test code = 47081-3) Abnormal [facility] WITH [id number] 00:09:05* Test Item Value Reference Range Interpretation [...] 32.5 g/dL 31.6-35.1 RDW-SD (test code = 83087-4) 42.0 fL 39.0-49.9 RDW-CV (test code = 788-0) 13.3 % 12.0-15.5 PLT (test code = 777-3) 364 See_Comment H [Automated messa ge] The system which generated this result transmitted reference range: 166 - 358 10*3/?L. The reference range was not used to interpret this result as normal/abnormal. MPV (test code = 56604-6) 10.0 fL 9.5-12.9 NRBC/100 WBC (test code = 2316542962) 0.0 See_Comment [Automated me ssage] The system which generated this result transmitted reference range: 0.0 - 10.0 /100 WBCs. The reference range was not used to interpret this result as normal/abnormal. NRBC x10^3 (test code = 6950388140) See_Comment [Automated messa ge] The system which generated this result transmitted reference range: 10*3/?L. The reference range was not used to interpret this result as normal/abnormal. GRAN MAT (NEUT) % (test code = 770-8) 72.5 % IMM GRAN % (test code = 2049167748) 0.30 % LYMPH % (test code = 736-9) 19.0 % MONO % (test code = 5905-5) 6.6 % EOS % (test code = 713-8) 1.2 % BASO % (test code = 706-2) 0.4 % GRAN MAT x10^3(ANC) (test code = 6605896512) 6.98 10*3/uL 1.88-7.09 IMM GRAN x10^3 (test code = 7867339924) 0.03 10*3/uL 0.00-0.06 LYMPH x10^3 (test code = 731-0) 1.83 10*3/uL 1.32-3.29 MONO x10^3 (test code = 742-7) 0.64 10*3/uL 0.33-0.92 EOS x10^3 (test code = 711-2) 0.12 10*3/uL 0.03-0.39 BASO x10^3 (test code = 704-7) 0.04 10*3/uL 0.01-0.07 Lab Interpretation (test code = 52431-1) Abnormal [facility] [id number] 04:43:00* Test Item Value Reference Range Interpretation Comme nts POCT PREG (test code = 1605) positive On board controls acceptable with C Line (test code = 3574) positive POCT PREG LOT # (test code = 3575) [id number] POCT PREG TEST DATE ( test code = 3576) 07/21/2023 Lab Interpretation (test cod e = 76848-1) Normal [facility] URINALYSIS W SPECIFIC [id number] 21:19:00* Test Item Value Reference Range Interpretation [...] POCT U APPEAR (test code = 3267) [facility] URINALYSIS W SPECIFIC [id number] 21:19:00* Test Item Value Reference Range Interpretation [...] POCT U APPEAR (test code = 3267) [facility] [id number] 21:40:00* Test Item Value Reference Range Interpretation Comme nts POCT PREG (test code = 1605) Positive On board controls acceptable with C Line (test code = 3574) Yes POCT PREG LOT # (test code = 3575) POCT PREG TEST DATE ( test code = 3576) [facility] URINALYSIS W/O SPECIFIC [id number] 21:34:00* Test Item Value Reference Range Interpretation [...] = 3257) negative Negative - Negati ve [facility] [id number] 08:22:00* Test Item Value Reference Range Interpretation Comme nts POCT PREG (test code = 1605) neg On board controls acceptable with C Line (test code = 3574) yes POCT PREG LOT # (test code = 3575) [id number] POCT PREG TEST DATE ( test code = 3576) 09/19/2023 Lab Interpretation (test cod e = 36463-7) [facility] [id number] 06:28:56 * Test Item Value Reference Range Interpretation Comme nts TSH (test code = 2824460693) See_Comment Biotin has been reported to cause a negative bias, interpret results relative to patient's use of biotin. [Automated message] The system which generated this result transmitted reference range: 0.45 - 4.70 mIU/L. The reference range was not used to interpret this result as normal/abnormal. Lab Interpretation (test code = 39313-5) [facility] [id number] 06:28:56 * Test Item Value Reference Range Interpretation Comme nts TSH (test code = 6507667051) See_Comment Biotin has been reported to cause a negative bias, interpret results relative to patient's use of biotin. [Automated message] The system which generated this result transmitted reference range: 0.45 - 4.70 mIU/L. The reference range was not used to interpret this result as normal/abnormal. Lab Interpretation (test code = 26826-9) [id number] 19:31:00* Test Item Value Reference Range Interpretation Comme nts POCT PREG (test code = 1605) Negative On board controls acceptable with C Line (test code = 3574) Yes POCT PREG LOT # (test code = 3575) POCT PREG TEST DATE ( test code = 3576) [facility] [id number] 19:31:00* Test Item Value Reference Range Interpretation Comme nts POCT PREG (test code = 1605) Negative On board controls acceptable with C Line (test code = 3574) Yes POCT PREG LOT # (test code = 3575) POCT PREG TEST DATE ( test code = 3576) [facility] Consult Notes Date/Time Note Provider Source 2023-01-08 18:58:39 Associated Order(s): CONSULT QUANTITATIVE ANALYST 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 CONSULT H&P NOTE Date of Service: 01/08/2023 [...] Chest pain or SOB Work up in [place] showed normal TSH and CXR Most recent [...] [place]; Location: Labor and Delivery - [place] CHOLECYSTECTOMY 2021 DILATION AND CURETTAGE (SHX) 2010 Both (Dr Martino) DILATION AND CURETTAGE (SHX) N/A 09/27/2022 Surgeon: Gillian Reno MD; Location: [facility] TONSILLECTOMY WITH ADENOIDECTOMY Age 2 Social History Socioeconomic History Marital status: Number of children: 2 Years of education: 11th Occupational History 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 Drug use: No Sexual activity: Yes Partners: Male control/protection: None Comment: Last intercourse: 11/19/2022 Other Topics Concern Seat Belt Yes Comment: Sometimes Social History Narrative Denies domestic or physical violence within the home Denominational Preference: None Patient lives with her children, feels safe at home. Denies cats. Surgical History: Past Surgical History: Procedure Laterality Date SECTION Dr Aragon SECTION N/A 09/24/2016 Surgeon: Joe Martino MD; Location: [facility] Labor and Delivery OR Location SECTION N/A 03/08/2018 Surgeon: Gloria Atkins; Location: Labor and Delivery - [place] CHOLECYSTECTOMY 2021 DILATION AND CURETTAGE (SHX) 2010 Both (Dr Martino) DILATION AND CURETTAGE (SHX) N/A 09/27/2022 Surgeon: Gillian Reno MD; Location: [facility] TONSILLECTOMY WITH ADENOIDECTOMY Age 2 OB History: [...] already had postop appointment/beta clinic appointment in [place] on 01/18. Encouraged to keep the appointment Mariajose Ramsey MD T [facility] - Health History and Physical Notes [...] 8 (eight) hours as needed for Cough. ZXMHAVDGFU-RGLAMIOJNEOPY-QHIS 50-325-40 MG TABLET Take 1 tablet by mouth every 4 (four) hours as needed (severe migraine). Use sparingly no more than 9 days per month DIAZEPAM 5 MG TABLET Take 1 tablet by mouth 2 (two) times daily as needed (severe migraine). No more than 2 days a week, 8 days a month. Do not take with butalbital or other DIETETICS TEACHER depressants DULOXETINE 30 MG CAPSULE Take 1 [...] gestational, resolved. MELISSA (iron deficiency anemia) seeing rehab therapist Irregular menstrual cycle 04/03/2022 Observed seizure-like activity [...] Do not take with butalbital or other DIETETICS TEACHER depressants 15 tablet 0 scopolamine transdermal 1 mg over 3 days patch Apply 1 Patch to area(s) every 72 (seventy-two) hours. 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 Drug use: No Sexual activity: Yes Partners: Male control/protection: None Comment: Last intercourse: 11/19/2022 Other Topics Concern Seat Belt Yes Comment: Sometimes Social History Narrative Denies domestic or physical violence within the home Denominational Preference: None Patient lives with her children, [...] complete the procedure, cardiovascular complications such as TX, stroke, arrhythmia, and . Informed consent obtained. Robinder Abrol, DO Gastroenterology PGY 6 Pager#[phone] ET CONTRACTOR Associated attestation - Ry Forman MD - 05/09/2024 1:[address] CONTRACTOR I personally examined the patient on 05/09/[address] Sotomayor's resident/fellow note as written. I actively participated in the decision-making process. Please see the resident/fellow's note for additional details. Ry Forman MD [facility] House Supervisor Gastroenterology [facility] 2023-01-08 19:29:53 Formatting of this n ote might be different from the original. See 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 consult note for H&P Mariajose Ramsey MD [facility]
[2024-06-18 17:55] LABS: Specific Gravity 1.029 (1.005-1.030); Urine Bacteria <20 /HPF (<20); Urine Bilirubin NEGATIVE (Negative); Urine Blood Negative (Negative); Urine Clarity Extremely Turbid (Clear); Urine Color Yellow (Yellow); Urine Culture Reflex Order REFLEXED; Urine Glucose NEGATIVE (Negative); Urine Ketones NEGATIVE (Negative); Urine Microscopic Reflex YN ORDER UMIC; Urine Mucus 3+ /HPF (None Seen); Urine Nitrite NEGATIVE (Negative); Urine Protein TRACE (Negative); Urine RBC <5 /HPF (None Seen); Urine Urobilinogen Normal (Normal); Urine WBC >50 /HPF (<5)
[2024-06-18 18:02] LABS: PT Prothrombin Time 11.4 SECONDS (9.4-12.5); PTT, Activated Partial Thromb 33.8 SECONDS (24.3-36.9); Protime INR 1.02
[2024-06-18 18:04] LABS: Absolute Basophils 0.1 K/uL (0-0.5); Absolute Lymphocytes (CBC) 1.3 K/uL (0.7-4.9); Absolute Monocytes 0.6 K/uL (0.1-1.3); Absolute Neutrophil 6.5 K/uL (1.8-8.0); Basophils % 0.6 % (0-1.3); Eosinophils % 0.3 % (0-4.4); Hematocrit 39.8 % (36.0-45.0); Hemoglobin 12.9 g/dL (12.0-15.0); MCH 26.5 pg (27.0-35.0); MCHC 32.3 g/dL (32.0-36.0); MPV 8.4 fL (7.6-11.3); Monocytes % 7.2 % (3.3-12.3); Neutrophils % 76.9 % (41.7-73.7); Nucleated Red Blood Cells % 0.1 % (0-0); Platelets 362 thou/uL (152-406); RBC Red Blood Cell Count 4.86 M/uL (3.86-4.86); Red Cell Distribution Width 16.5 % (12.1-15.2)
[2024-06-18] MEDS ORDERED: ACETAMINOPHEN 500 MG TAB ONE (18:08)
[2024-06-18] MEDS ORDERED: LORAZEPAM 1 MG TABLET ONE (18:08)
--- NOTE | 2024-06-18 18:12 | ER ---
Nurse's Notes [facility] Name: Elba Wells Age: 28 yrs Sex: Female : 1995 Arrival Date: 06/18/2024 Time: 17:10 Bed 20 Private MD: Diagnosis: Suicidal ideations Presentation: 06/18 17:10 Chief complaint: Patient states: "I wanted to kill myself because I feel alone. The father of my children's brother last night and I wanted to be there for him, but he pushed me away and pretty much told me he didn't want to be with me because of my mental health, and I just don't want to be here anymore because what is the point if I don't have my kids and he doesn't want to be with me." Pt has a plan with a previous attempt 2-3 weeks ago. Coronavirus screen: Client denies travel out of the [place] in the last 14 days. Ebola Screen: Patient denies exposure to infectious person. Patient denies travel to an Ebola-affected area in the 21 days before illness onset. Initial Sepsis Screen: Does the patient meet any 2 criteria? No. Patient's initial sepsis screen is negative. Does the patient have a suspected source of infection? No. Patient's initial sepsis screen is negative. Risk Assessment: Do you want to hurt yourself or someone else? Patient reports no desire to harm self or others. Onset of symptoms is unknown. 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 - Infectious Disease History:: Denies. - Social history:: Smoking status: Patient denies any tobacco usage or history of. Screenin:46 [facility] ED Fall Risk Assessment (Adult) History of falling in the last 3 months, ll1 including since admission No falls in past 3 months (0 pts) Confusion or Disorientation No (0 pts) Intoxicated or Sedated No (0 pts) Impaired Gait No (0 pts) Mobility Assist Device Used No (0 pt) Altered Elimination No (0 pt) Score/Fall Risk Level 0 - 2 = Low Risk Maintained a safe environment, Hourly rounding (assess needs \\T\\ fall precautionary measures) done. Abuse screen: Denies threats or abuse. Nutritional screening: No deficits noted. Tuberculosis screening: No symptoms or risk factors identified. Assessment: 17:45 General: Appears uncomfortable, Behavior is cooperative, appropriate for age, anxious, ll1 quiet. General: Reports SI. wanting to cut her own throat or drive into water. Pain: Complains of pain in head Quality of pain is described as aching. Neuro: Reports headache. 17:58 Reassessment: shirt, sweatpants, black shoes, necklace, bracelet and earrings ss documented and given to mother to take home. 18:16 Reassessment: No changes from previously documented assessment. Patient and/or family ll1 updated on plan of care and expected duration. Pain level reassessed. Patient is alert, oriented x 3, equal unlabored respirations, skin warm/dry/pink. 18:25 Reassessment: Nurse to nurse with Juana at [facility]. Will most likely accept if ll1 all labs normal. 18:42 Reassessment: No changes from previously documented assessment. Patient and/or family ll1 updated on plan of care and expected duration. Pain level reassessed. Patient is alert, oriented x 3, equal unlabored respirations, skin warm/dry/pink. 19:03 Reassessment: Patient and/or family updated on plan of care and expected duration. Pain br2 level reassessed. Patient is alert, oriented x 3, equal unlabored respirations, skin warm/dry/pink. General: Appears in no apparent distress. comfortable, Behavior is cooperative, appropriate for age, flat, quiet. Pain: Denies pain. Neuro: Level of Consciousness is awake, alert, obeys commands, Oriented to person, place, time. Cardiovascular: Capillary refill < 3 seconds. Respiratory: Airway is patent Respiratory effort is even, unlabored, Respiratory pattern is regular, symmetrical. GI: No signs and/or symptoms were reported involving the gastrointestinal system. : No signs and/or symptoms were reported regarding the genitourinary system. EENT: No signs and/or symptoms were reported regarding the EENT system. Derm: No signs and/or symptoms reported regarding the dermatologic system. Musculoskeletal: No signs and/or symptoms reported regarding the musculoskeletal system. Capillary refill < 3 seconds, Range of motion: intact in all extremities. 20:40 Reassessment: No changes from previously documented assessment. Patient and/or family br2 updated on plan of care and expected duration. Pain level reassessed. Patient is alert, oriented x 3, equal unlabored respirations, skin warm/dry/pink. mother at bedside. Psych: 17:10 [place] Suicide Severity Screening: SEE PAPER DOCUMENTATION. ss 19:00 [place] Suicide Severity Screening: In the past month, have you wished you were br2 or wished you could go to sleep and not wake up? Patient responds "yes." "In the past month, have you actually had any thoughts of killing yourself?" Patient responds "yes." "In your lifetime, have you ever done anything, started to do anything, or prepared to do anything to end your life?" Patient responds "no.". Subjective: Having thoughts of suicide. Objective: Patient is cooperative. Safety Checks: Door is open. Visitors are present. Commitment: Patient will be a voluntary commitment. Vital Signs: 17:10 Weight 97.52 kg; Height 5 ft. 7 in. ; Pain 0/10; ss 18:40 BP 142 / 81; Pulse 110; Resp 18; Temp 98; Pulse Ox 97% ; Pain 9/10; ll1 19:00 BP 106 / 74; Pulse 86; Resp 18; Temp 97.6(TE); Pulse Ox 100% on R/A; br2 19:30 BP 117 / 79; Pulse 86; Resp 18 S; Temp 97.4(O); Pulse Ox 100% ; lg3 17:10 Body Mass Index 33.67 (97.52 kg, 170.18 cm) ss 17:10 Pain Scale: Adult ss 18:40 Pain Scale: Adult ll1 ED Course: 17:13 Patient arrived in ED. ss 17:14 Carolina Butler FNP-C [facility]. kb 17:14 Liborio Murillo MD is Attending Physician. kb 17:37 Triage completed. ss 17:37 Arm band placed on right wrist. ss 17:43 Urine collected: clean catch specimen, clear, Amount Voided: 200mL. ll1 17:45 Christy Hernandez, BALDOMERO is Primary Nurse. ll1 17:45 Inserted saline lock: 22 gauge in left antecubital area, using aseptic technique. Blood ll1 collected. Flushed with 10 mL NS. 17:45 Initial lab(s) drawn, by me, sent to lab. 1 17:46 faxed patient clinical information to [facility] and [facility] in attempt eb to find placement. 17:47 Patient has correct armband on for positive identification. Bed in low position. ll1 Provided Education on: ER procedures and process. 17:47 No provider procedures requiring assistance completed. 1 18:22 connected Cristóbal Durham from [facility] with Daniel Durham for nurse to nurse. eb 19:35 Called [facility] for update on pt acceptance. [facility] 19:49 pt was accepted to [facility] by Anand Guerra . Admin approval given by [facility] Pilar Bermudez \\T\\ 1950 , [facility] to transfer pt. 20:45 IV discontinued, intact, bleeding controlled, No redness/swelling at site. Pressure br2 dressing applied. Administered Medications: 18:15 Drug: Acetaminophen PO 1000 mg PO once Route: PO; 1 19:00 Follow up: Response: No adverse reaction br2 19:05 Follow up: Response: No adverse reaction br2 18:15 Drug: LORazepam PO 1 mg PO once Route: PO; 1 19:00 Follow up: Response: No adverse reaction br2 Medication: 17:47 VIS not applicable for this client. ll1 Outcome: 18:12 ER care complete, transfer ordered by . kb 20:45 Transferred by ground EMS to other acute care facility: [facility]. Note: br2 [facility] 20:45 Condition: stable 20:45 Discharge instructions given to patient, Instructed on discharge instructions, 20:47 Patient left the ED. br2 Addendum: 06/22/2024 08:35 Addendum: Culture Results:. i w Signatures: Carolina Butler, OUTSIDE COLLECTOR-C OUTSIDE COLLECTOR-Ckb Fallon Mukherjee, BALDOMERO RN Liz Marie, RN RN Yelena Zahng Lacie RN RN lg3 Christy Hernandez RN RN ll1 Fatimah Flores [facility] Kaity Valencia RN RN br2 Corrections: (The following items were deleted from the chart) 06/18 17:51 17:45 Inserted saline lock: 22 gauge in left antecubital area, using aseptic technique. ll1 Blood collected. Flushed with 10 mL NS ll1 22:38 19:00 BP 106 / 74; Pulse 86bpm; Resp 18bpm; Spontaneous; Pulse Ox 100%; Temp 97.6F lg3 Oral; br2 22:41 20:45 Discharged to home ambulatory, br2 lg3 06/22 08:37 08:35 Addendum: Culture Results: [facility]
--- NOTE | 2024-06-18 18:12 | EDPHYS ---
Physician Documentation [facility] Name: Elba Wells Age: 28 yrs Sex: Female : 1995 Arrival Date: 06/18/2024 Time: 17:10 Bed 20 Private MD: ED Physician Liborio Murillo HPI: 06/18 17:22 This 28 yrs old Female presents to ER via Unassigned with complaints of kb Suicidal Ideation. 17:22 Pt is a 28 year old female who presents for suicidal ideations. Pt states she is tired kb of living. States she has been having issues with her , they are currently , and she is tired of doing everything alone. States she tried to kill herself 2 weeks ago, took more of her medication than she is supposed to and planned to drive into the water, but her found her. States today she was trying to ask her for help and he was pushing her away. States she texted her mother and siblings telling them that she didn't want to be here anymore and was going to try to kill herself again. . 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 - Infectious Disease History:: Denies. - Social history:: Smoking status: Patient denies any tobacco usage or history of. ROS: 17:22 Constitutional: As per HPI kb Exam: 17:22 Constitutional: This is a well developed, well nourished patient who is awake, alert, kb and in no acute distress. Head/Face: Normocephalic, atraumatic. ENT: Moist Mucous membranes Cardiovascular: Regular rate Respiratory: Respirations even and unlabored. No increased work of breathing. Talking in full sentences Abdomen/GI: Soft, non-tender. No distention Skin: Warm, dry with normal turgor. Normal color. MS/ Extremity: Pulses equal, no cyanosis. Neurovascular intact. Full, normal range of motion. Neuro: Awake and alert, GCS 15, oriented to person, place, time, and situation. 17:55 ECG was reviewed by the Attending Physician. kb Vital Signs: 17:10 Weight 97.52 kg; Height 5 ft. 7 in. ; Pain 0/10; ss 18:40 BP 142 / 81; Pulse 110; Resp 18; Temp 98; Pulse Ox 97% ; Pain 9/10; ll1 19:00 BP 106 / 74; Pulse 86; Resp 18; Temp 97.6(TE); Pulse Ox 100% on R/A; br2 19:30 BP 117 / 79; Pulse 86; Resp 18 S; Temp 97.4(O); Pulse Ox 100% ; lg3 17:10 Body Mass Index 33.67 (97.52 kg, 170.18 cm) ss 17:10 Pain Scale: Adult ss 18:40 Pain Scale: Adult ll1 MDM: 17:14 Medical Screening Exam initiated kb 17:26 Differential diagnosis: acute psychotic break, depression, suicidal ideations, acute kb stress reaction. Data reviewed: vital signs, nurses notes. Historians other than the Patient: EMS: [facility]. 18:11 Consideration of Admission/Observation Escalation of care including kb admission/observation considered. pt will be transferred for inpatient psych. Counseling: I had a detailed discussion with the patient and/or guardian regarding the historical points, exam findings, and any diagnostic results supporting the discharge/admit diagnosis, the need to transfer to another facility, [facility] does not immediately have the required specialist. 20:00 Management of patient was discussed with the following: Behavioral Health Provider: Pt kb accepted to [facility] without conference by Dr Robles. 06/18 17:21 Order name: Acetaminophen; Complete Time: 18:25 kb 06/18 17:21 Order name: Basic Metabolic Panel; Complete Time: 18:25 kb 06/18 17:21 Order name: CBC with Diff; Complete Time: 18:05 kb 06/18 17:21 Order name: ETOH Level; Complete Time: 18:25 kb 06/18 17:21 Order name: Hepatic Function; Complete Time: 18:25 kb 06/18 17:21 Order name: PT-INR; Complete Time: 18:05 kb 06/18 17:21 Order name: Test, Urine; Complete Time: 17:55 kb 06/18 17:21 Order name: Ptt, Activated; Complete Time: 18:05 kb 06/18 17:21 Order name: Salicylate; Complete Time: 19:01 kb 06/18 17:21 Order name: Urinalysis w/ reflexes; Complete Time: 18:25 kb 06/18 17:21 Order name: Urine Drug Screen; Complete Time: 18:25 kb 06/18 18:26 Order name: Urine Culture [facility] 06/18 17:21 Order name: EKG; Complete Time: 17:22 kb 06/18 17:21 Order name: EKG - Nurse/Tech; Complete Time: 17:50 kb 06/18 17:21 Order name: IV Saline Lock; Complete Time: 17:45 kb 06/18 17:21 Order name: Labs collected and sent; Complete Time: 17:45 kb 06/18 17:21 Order name: Suicide Precautions; Complete Time: 17:45 kb 06/18 17:21 Order name: Suicide Screening ([place]); Complete Time: 17:45 kb EC:55 Rate is 77 beats/min. Rhythm is regular. QRS [place] is Normal. ID interval is normal at kb 140 msec. QRS interval is normal at 74 msec. QT interval is normal at 391 msec. Administered Medications: 18:15 Drug: Acetaminophen PO 1000 mg PO once Route: PO; ll1 19:00 Follow up: Response: No adverse reaction br2 19:05 Follow up: Response: No adverse reaction br2 18:15 Drug: LORazepam PO 1 mg PO once Route: PO; ll1 19:00 Follow up: Response: No adverse reaction br2 Disposition: 06/19 07:06 Co-signature as Attending Physician, Liborio Murillo MD I reviewed the patient's care rn provided by the Advanced Practice Provider and agree with the diagnosis and treatment plan. Disposition Summary: 06/18/24 18:12 Transfer Ordered Notes: Transfer Location: Psych Facility kb Reason: Higher level of care kb Condition: Stable kb Problem: new kb Symptoms: are unchanged kb Accepting Physician: Dr Robles(06/18/24 20:47) br2 Diagnosis - Suicidal ideations kb Forms: - Medication Reconciliation Form kb - SBAR form kb Signatures: Dispatcher [employer] EDPR Carolina Butler FNP-C FNP-Ckb Liborio Murillo MD MD rn Blanchard, Shelby, RN RN ss Christy Hernandez, RN RN ll1 Kaity Valencia RN RN br2 Corrections: (The following items were deleted from the chart) 06/18 17:22 17:22 ACETAMINOPHEN+C.LAB.BRZ ordered. EDMS EDMS 17:22 17:22 BASIC METABOLIC PANEL+C.LAB.BRZ ordered. EDMS EDMS 17:22 17:22 CBC+H.LAB.BRZ ordered. EDMS EDMS 17:22 17:22 ETHANOL+C.LAB.BRZ ordered. EDMS EDMS 17:22 17:22 HEPATIC FUNCTION+C.LAB.BRZ ordered. EDMS EDMS 17:22 17:22 PROTIME (+INR)+COAG.LAB.BRZ ordered. EDMS EDMS 17:22 17:22 Test, Urine+UC.LAB.BRZ ordered. EDMS EDMS 17:22 17:22 PTT, ACTIVATED+COAG.LAB.BRZ ordered. EDMS EDMS 17:22 17:22 SALICYLATE+C.LAB.BRZ ordered. EDMS EDMS 17:22 17:22 Urinalysis+U.LAB.BRZ ordered. EDMS EDMS 17:22 17:22 URINE DRUG SCREEN+UC.LAB.BRZ ordered. EDMS EDMS 20:00 18:12 Dr jong sunshine 20:47 20:00 Dr Travis sunshine br2
[2024-06-18 18:18] LABS: Barbiturates NEGATIVE (NEGATIVE); Benzodiazepines NEGATIVE (NEGATIVE); Cocaine NEGATIVE (NEGATIVE); METHAMPHETAM NEGATIVE (NEGATIVE); Methadone NEGATIVE (NEGATIVE); Opiates NEGATIVE (NEGATIVE); Phencyclidine NEGATIVE (NEGATIVE); THC Cannibis NEGATIVE (NEGATIVE)
[2024-06-18 18:18] LABS: ALT/SGPT 31 U/L (13-56); AST/SGOT 16 U/L (15-37); Albumin 3.6 g/dL (3.4-5.0); Albumin/Globulin Ratio 0.8 (1.1-1.8); Alkaline Phosphatase 88 U/L (45-117); Anion Gap 8.6 mEq/L (5.0-15.0); BUN Blood Urea Nitrogen 10 mg/dL (7-18); Bicarbonate 27 mEq/L (21-32); Bilirubin Total 0.4 mg/dL (0.2-1.0); Globulin 4.4 g/dL (2.3-3.5); Glomerular Filtration Rate 122 ml/min (=/>90); Glucose Level 101 mg/dL (74-106); Potassium 3.6 mEq/L (3.5-5.1); Sodium Level 137 mEq/L (136-145)
[2024-06-18 18:23] LABS: Bilirubin Direct < 0.2 mg/dL (0-0.2); Bilirubin Indirect, Calculated 0.2 mg/dL (0.2-0.8)
[2024-06-18 23:00] VITALS: BP 106/74; TEMP 97.6; O2SAT 100
--- NOTE | 2024-06-19 11:10 | EKG ---
Test Date: 2024-06-18 Test Time: 17:50:31 Assorter: LINDA MEASUREMENT RESULTS: Intervals: Rate: 77 [place]: 140 QRSD: 74 QT: 346 QTc: 391 Weiser: P: 49 AZ: 140 QRS: 16 T: 17 INTERPRETIVE STATEMENTS: Normal sinus rhythm Normal ECG Compared to ECG 08/26/2023 19:33:56 Sinus arrhythmia no longer present Electronically Signed On 06-19-24 11:08:47 ROPE MAKING MACHINE OPERATOR by Jose Stinson
== END 2024-06-18 20:47 ==
LOC: ER 17:10
DX: R45.851 Suicidal ideations (principal)
CPT/HCPCS: 36415; 80048; 80076; 80143; 80179; 80307; 81001; 81025; 82077; 85025; 85610; 85730; 87077; 87086; 87088; 87186; 93005; 99285

== ENCOUNTER 2024-07-18 02:10 | Emergency (ER) | payer OTHER ==
[2024-07-18] MEDS ORDERED: ONDANSETRON 4 MG/2 ML VIAL ONE (02:46)
[2024-07-18] MEDS ORDERED: KETOROLAC 30 MG/ML INJ ONE (02:46)
[2024-07-18] MEDS ORDERED: NA CHLORIDE 0.9% 1,000 ML ONE (02:46)
[2024-07-18 03:11] LABS: Platelets 366 thou/uL (152-406); Red Cell Distribution Width 16.4 % (12.1-15.2)
[2024-07-18 03:18] LABS: Albumin 3.7 g/dL (3.4-5.0); Albumin/Globulin Ratio 0.8 (1.1-1.8); Anion Gap 10.3 mEq/L (5.0-15.0); Bilirubin Total 0.3 mg/dL (0.2-1.0); Globulin 4.4 g/dL (2.3-3.5); Potassium 3.3 mEq/L (3.5-5.1); Protein, Total 8.1 g/dL (6.4-8.2)
[2024-07-18 03:22] LABS: Specific Gravity 1.016 (1.005-1.030)
[2024-07-18 03:23] LABS: Specific Gravity 1.016 (1.005-1.030); Sqamous Epithelial <5 /HPF (None Seen); Urine Bacteria None Seen /HPF (<20); Urine Bilirubin NEGATIVE (Negative); Urine Blood Trace (Negative); Urine Clarity Extremely Turbid (Clear); Urine Color Light-Yellow (Yellow); Urine Culture Reflex Order REFLEXED; Urine Glucose NEGATIVE (Negative); Urine Ketones NEGATIVE (Negative); Urine Microscopic Reflex YN ORDER UMIC; Urine Nitrite NEGATIVE (Negative); Urine Protein TRACE (Negative); Urine Urobilinogen Normal (Normal); Urine WBC >50 /HPF (<5); Urine WBC Clump Rare /HPF (None Seen); Urine pH 6.5 (5.0-7.0)
[2024-07-18 03:27] LABS: Absolute Eosinophils 0.1 K/uL (0-0.5); Absolute Lymphocytes (CBC) 2.4 K/uL (0.7-4.9); Absolute Neutrophil 8.5 K/uL (1.8-8.0); Basophils % 0.4 % (0-1.3); Eosinophils % 0.7 % (0-4.4); Hemoglobin 11.8 g/dL (12.0-15.0); MCH 25.8 pg (27.0-35.0); MCHC 31.7 g/dL (32.0-36.0); MCV 81.4 fL (80-100); MPV 8.6 fL (7.6-11.3); Neutrophils % 70.9 % (41.7-73.7); Nucleated Red Blood Cells % 0.2 % (0-0); RBC Red Blood Cell Count 4.55 M/uL (3.86-4.86)
[2024-07-18] MEDS ORDERED: NA CHLORIDE 0.9% 100 ML ONE (04:49)
[2024-07-18] MEDS ORDERED: CEFTRIAXONE 1000 MG/VIAL ONE (04:49)
--- NOTE | 2024-07-18 04:50 | RAD REPORT ---
EXAM DESCRIPTION: Abdomen Pelvis Wo Contrast RadLex: CT ABDOMEN PELVIS WITHOUT IV CONTRAST CLINICAL HISTORY: 28 years Female; RLQ/flank pain + dysuria; NO CONTRAST Bed Name: 4 TECHNIQUE: CT of the abdomen and pelvis without contrast. All CT scans at this facility use dose modulation, iterative reconstruction, and/or weight based dosi ng when appropriate to reduce radiation dose to as low as reasonably achievable. COMPARISON: CT abdomen pelvis 06/07/2023 FINDINGS: Lower thorax: Lung bases are clear Abdomen: Stomach: Within normal limits Liver: No focal lesions. No intrahepatic ductal distention. Gallbladder: Surgically absent. Pancreas: Within normal limits Spleen: Within normal limits Right kidney: No hydronephrosis. No renal or ureteral calculi. Stranding surrounding the right ureter .. Left kidney: No hydronephrosis. No renal or ureteral calculi. Adrenal glands: Within normal limits Vascular structures: Within normal limits (although limited evaluation on noncontrast exam). Lymph nodes: No lymphadenopathy by size criteria Pelvis: Small bowel: No significant distention. Appendix: Within normal limits Colon: No distention or acute pericolonic edema. Peritoneum: No free intraperitoneal fluid or air. Bones: No acute bone findings. Bladder: Mild diffuse wall thickening. Reproductive organs: No acute findings. Note that evaluation of the bowel and solid organs is somewhat limited due to lack of intravenous and oral contrast. IMPRESSION: 1. Mild diffuse bladder wall thickening, can be seen in setting of cystitis. Correlate with urinaly sis. 2. Stranding surrounding the right ureter, can be seen in setting of ascending urinary tract infect ion. Correlate with urinalysis. 3. No urinary tract calculi. No hydronephrosis. Electronically signed by: Khris Martin MD 07/18/2024 04:[address] [facility] Z9 Due to temporary technical issues with the PACS/NetManage reporting system, reports are being lelo d by the in-house radiologist without review as a courtesy to ensure prompt reporting the interpreting radiologist is fully responsible for the content of the report. Transcribed Date/Time: 07/18/2024 4:49 AM
--- NOTE | 2024-07-18 04:53 | ER ---
Nurse's Notes [facility] Name: Elba Wells Age: 28 yrs Sex: Female : 1995 Arrival Date: 07/18/2024 Time: 02:10 Bed 4 Private MD: Diagnosis: Urinary tract infection, high tract disease Presentation: 07/18 02:29 Chief complaint: Patient states: right lower abdominal pain to right back, urinary vc1 frequency, pain and cloudy urine, also c/o nauseousness. Coronavirus screen: Client denies travel out of the [place] in the last 14 days. At this time, the client does not indicate any symptoms associated with coronavirus-19. Ebola Screen: Patient negative for fever greater than or equal to 101.5 degrees Fahrenheit, and additional compatible Ebola Virus Disease symptoms Patient denies exposure to infectious person. Patient denies travel to an Ebola-affected area in the 21 days before illness onset. No symptoms or risks identified at this time. Initial Sepsis Screen: Does the patient meet any 2 criteria? No. Patient's initial sepsis screen is negative. Does the patient have a suspected source of infection? No. Patient's initial sepsis screen is negative. Risk Assessment: Do you want to hurt yourself or someone else? Patient reports no desire to harm self or others. Onset of symptoms was July 15, 2024. Care prior to arrival: None. 02:29 Method Of Arrival: Ambulatory vc1 02:29 Acuity: CED 3 vc1 Triage Assessment: 02:33 General: Appears in no apparent distress. uncomfortable, well groomed, well developed, vc1 well nourished, Behavior is calm, cooperative, appropriate for age. Pain: Complains of pain in right lower quadrant Pain radiates to right low back Pain currently is 10 out of 10 on a pain scale. Quality of pain is described as sharp, Pain began 2-3 days ago. Noted to be grimacing, resistant to movement. EENT: No deficits noted. No signs and/or symptoms were reported regarding the EENT system. Neuro: Level of Consciousness is awake, alert, obeys commands, Oriented to person, place, time, situation, Appropriate for age. Cardiovascular: Capillary refill < 3 seconds Patient's skin is warm and dry. Respiratory: Airway is patent Respiratory effort is even, unlabored, Respiratory pattern is regular, symmetrical. GI: Abdomen is non-distended, Reports nausea. : Reports burning with urination, pain in right lower quadrant(s) in lower back with urination, Pain is 10 out of 10 on a pain scale. urgency, urinary frequency. Derm: Skin is intact, is healthy with good turgor, Skin is dry, Skin is normal, Skin temperature is warm. Musculoskeletal: Circulation, motion, and sensation intact. Range of motion: intact in all extremities. 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 Flu vaccine is not up to date. - Infectious Disease History:: Denies. - Social history:: Smoking status: Patient denies any tobacco usage or history of. Screenin:32 [facility] ED Fall Risk Assessment (Adult) History of falling in the last 3 months, vc1 including since admission No falls in past 3 months (0 pts) Confusion or Disorientation No (0 pts) Intoxicated or Sedated No (0 pts) Impaired Gait No (0 pts) Mobility Assist Device Used No (0 pt) Altered Elimination No (0 pt) Score/Fall Risk Level 0 - 2 = Low Risk Oriented to surroundings, Maintained a safe environment, Educated pt \T\ family on fall prevention, incl call for assistance when getting out of bed. Abuse screen: Denies threats or abuse. Nutritional screening: No deficits noted. Tuberculosis screening: No symptoms or risk factors identified. Assessment: 02:51 General: Appears in no apparent distress. uncomfortable, Behavior is calm, cooperative, cp4 appropriate for age. Pain: Complains of pain in back and right low back and abdomen and right lower quadrant Pain does not radiate. Pain currently is 10 out of 10 on a pain scale. Neuro: Level of Consciousness is awake, alert, obeys commands, Oriented to person, place, time, situation. Cardiovascular: Patient's skin is warm and dry. Respiratory: Airway is patent Respiratory effort is even, unlabored. GI: Abdomen is round non-distended, Bowel sounds present X 4 quads. Abd is soft and non tender X 4 quads. Reports nausea. : No signs and/or symptoms were reported regarding the genitourinary system. EENT: No signs and/or symptoms were reported regarding the EENT system. Derm: No signs and/or symptoms reported regarding the dermatologic system. Musculoskeletal: No signs and/or symptoms reported regarding the musculoskeletal system. 04:05 Reassessment: Patient appears in no apparent distress at this time. Patient and/or cp4 family updated on plan of care and expected duration. Pain level reassessed. Patient is alert, oriented x 3, equal unlabored respirations, skin warm/dry/pink. Vital Signs: 02:29 Weight 94.35 kg; Height 5 ft. 7 in. ; Pain 10/10; vc1 03:42 BP 117 / 83; Pulse 84; Resp 18; Pulse Ox 100% ; cp4 04:35 BP 95 / 60; Pulse 77; Resp 18; Pulse Ox 98% ; cp4 05:18 BP 100 / 65; Pulse 82; Resp 18; Pulse Ox 98% ; cp4 02:29 Body Mass Index 32.58 (94.35 kg, 170.18 cm) vc1 02:29 Pain Scale: Adult vc1 ED Course: 02:19 Patient arrived in ED. gm2 02:[address] MD is Attending Physician. sp3 02:31 Triage completed. vc1 02:32 Arm band placed on right wrist. vc1 02:32 Patient has correct armband on for positive identification. Bed in low position. Call vc1 light in reach. 02:51 No provider procedures requiring assistance completed. Initial lab(s) drawn, by co, cp4 sent to lab. Urine collected: clean catch specimen, cloudy. Inserted saline lock: 22 gauge in left antecubital area, using aseptic technique. Blood collected. Flushed with 10 mL NS. 03:01 CT Abd/Pelvis - Without Contrast In Process Unspecified. EDMS 04:05 Kathy Powers is Primary Nurse. cp4 05:17 Provided Education on: kidney infection. cp4 05:17 intact, bleeding controlled, No redness/swelling at site. Pressure dressing applied. cp4 Administered Medications: 02:50 Drug: Ondansetron IVP 4 mg IVP once; over 2 minutes Route: IVP; Site: left antecubital; cp4 05:17 Follow up: Response: No adverse reaction cp4 02:50 Drug: NS 0.9% IV 1000 ml IV at 1 bolus Per protocol; to be given as a bolus over 60 cp4 minutes Route: IV; Rate: 1 bolus; Site: left antecubital; 05:16 Follow up: Response: No adverse reaction; IV Status: Completed infusion cp4 03:41 Drug: TORadol - Ketorolac IVP 15 mg IVP once Route: IVP; Site: left antecubital; cp4 05:17 Follow up: Response: No adverse reaction; Pain is decreased cp4 04:53 Drug: Rocephin - Rocephin (cefTRIAXone) IVPB 1 grams IVPB once over 30 mins; (mix in 50 cp4 mL NS) Route: IVPB; Infused Over: 30 mins; Site: left antecubital; 05:16 Follow up: Response: No adverse reaction; IV Status: Completed infusion cp4 Medication: 02:34 VIS not applicable for this client. vc1 Outcome: 04:52 Discharge ordered by . sp3 05:17 Discharged to home ambulatory, cp4 05:17 Condition: stable 05:17 Discharge instructions given to patient, family, Instructed on discharge instructions, follow up and referral plans. medication usage, Demonstrated understanding of instructions, follow-up care, medications, Prescriptions given X 2, 05:18 Patient left the ED. cp4 Signatures: Dispatcher [employer] EDMS Abimbola Way MD MD sp3 Sonia Umana, BALDOMERO RN 1 Kathy Powers cp4 Hayley Santamaria 2
--- NOTE | 2024-07-18 04:53 | EDPHYS ---
Physician Documentation [facility] Name: Elba Wells Age: 28 yrs Sex: Female : 1995 Arrival Date: 07/18/2024 Time: 02:10 Bed 4 Private MD: ED Physician Abimbola Way HPI: 07/18 02:38 This 28 yrs old Female presents to ER via Ambulatory with complaints of sp3 Abdominal Pain, Low Back Pain. 02:38 28-year-old female with history of lupus, prior cholecystectomy, rheumatoid arthritis sp3 now presents to the ED with chief complaint right lower quadrant pain extending into her lower back with dysuria for 2 to 3 days. She denies any headache, fever, chest pain, shortness of breath, upper back pain, left-sided abdominal pain, VETERINARIAN symptoms, vomiting or diarrhea or any other signs or symptoms on ROS at this time. She does endorse nausea.. [employer]: 02:32 LMP 05/29/2024, unknown vc1 Historical: - Allergies: 02:31 Iodinated Contrast Media - IV Dye; vc1 - PMHx: 02:31 Anemia; Rheumatoid Arthritis; Lupus erythematosus; Asthma; Fibromyalgia; Migraines; vc1 - PSHx: 02:31 Adenoid excision; Tonsillectomy; Ovarian cyst removal; Cholecystectomy; vc1 section; D\T\C; - Immunization history:: Client reports having NOT received the Covid vaccine. Flu vaccine is not up to date. - Infectious Disease History:: Denies. - Social history:: Smoking status: Patient denies any tobacco usage or history of. ROS: 02:38 Constitutional: Negative for fever, chills, and weight loss, Eyes: Negative for injury, sp3 pain, redness, and discharge, ENT: Negative for injury, pain, and discharge, Neck: Negative for injury, pain, and swelling, Cardiovascular: Negative for chest pain, palpitations, and edema, Respiratory: Negative for shortness of breath, cough, wheezing, and pleuritic chest pain, MS/Extremity: Negative for injury and deformity, Skin: Negative for injury, rash, and discoloration, Neuro: Negative for headache, weakness, numbness, tingling, and seizure, Psych: Negative for depression, anxiety, suicide ideation, homicidal ideation, and hallucinations, Allergy/Immunology: Negative for hives, rash, and allergies, Endocrine: Negative for neck swelling, polydipsia, polyuria, polyphagia, and marked weight changes, Hematologic/Lymphatic: Negative for swollen nodes, abnormal bleeding, and unusual bruising, 02:38 All other systems are negative, Exam: 02:39 Constitutional: This is a well developed, well nourished patient who is awake, alert, sp3 and in no acute distress. Head/Face: Normocephalic, atraumatic. Eyes: Pupils equal round and reactive to light, extra-ocular motions intact. Lids and lashes normal. Conjunctiva and sclera are non-icteric and not injected. Cornea within normal limits. Periorbital areas with no swelling, redness, or edema. Neck: Trachea midline, no thyromegaly or masses palpated, and no cervical lymphadenopathy. Supple, full range of motion without nuchal rigidity, or vertebral point tenderness. No Meningismus. Chest/axilla: Normal chest wall appearance and motion. Nontender with no deformity. No lesions are appreciated. Cardiovascular: Regular rate and rhythm with a normal S1 and S2. No gallops, murmurs, or rubs. Normal PMI, no JVD. No pulse deficits. Respiratory: Lungs have equal breath sounds bilaterally, clear to auscultation and percussion. No rales, rhonchi or wheezes noted. No increased work of breathing, no retractions or nasal flaring. Abdomen/GI: Soft, non-tender, with normal bowel sounds. No distension or tympany. No guarding or rebound. No evidence of tenderness throughout. Skin: Warm, dry with normal turgor. Normal color with no rashes, no lesions, and no evidence of cellulitis. MS/ Extremity: Pulses equal, no cyanosis. Neurovascular intact. Full, normal range of motion. Neuro: Awake and alert, GCS 15, oriented to person, place, time, and situation. Cranial nerves II-XII grossly intact. Motor strength 5/5 in all extremities. Sensory grossly intact. Cerebellar exam normal. Normal gait. Psych: Awake, alert, with orientation to person, place and time. Behavior, mood, and affect are within normal limits. 02:39 Abdomen/GI: Right lower quadrant abdominal pain to palpation without peritoneal signs, rebound or guarding. Right CVA tenderness noted mild in nature., Vital Signs: 02:29 Weight 94.35 kg; Height 5 ft. 7 in. ; Pain 10/10; vc1 03:42 BP 117 / 83; Pulse 84; Resp 18; Pulse Ox 100% ; cp4 04:35 BP 95 / 60; Pulse 77; Resp 18; Pulse Ox 98% ; cp4 05:18 BP 100 / 65; Pulse 82; Resp 18; Pulse Ox 98% ; cp4 02:29 Body Mass Index 32.58 (94.35 kg, 170.18 cm) vc1 02:29 Pain Scale: Adult vc1 MDM: 02:23 Medical Screening Exam initiated sp3 02:39 Data reviewed: vital signs, nurses notes, old medical records, lab test result(s), sp3 radiologic studies. ED course: Differential diagnosis includes UTI, pyelonephritis, kidney stone, other GI pathology, and related pathologies, among others. I am not highly suspicious of sepsis, shock, aortic pathology, or any other critical process. Workup will include UA, labs, CT scan of the abdomen pelvis and general supportive care with pain and nausea medication. Disposition pending workup and patient course.. 04:51 ED course: CT demonstrates high tract disease, possibly early pyelonephritis. UTI on sp3 UA. Will discharge on antibiotics after Rocephin IV in the ED. Tramadol for pain control.. 07/18 02:29 Order name: CBC with Diff; Complete Time: 04:40 sp3 07/18 02:29 Order name: CMP; Complete Time: 04:40 sp3 07/18 02:29 Order name: Lipase; Complete Time: 04:40 sp3 07/18 02:29 Order name: Test, Urine; Complete Time: 04:40 sp3 07/18 02:29 Order name: Urinalysis w/ reflexes; Complete Time: 04:40 sp3 07/18 03:26 Order name: Urine Culture EDMA 07/18 02:29 Order name: CT Abd/Pelvis - Without Contrast sp3 07/18 02:29 Order name: IV Saline Lock; Complete Time: 02:44 sp3 07/18 02:29 Order name: Labs collected and sent; Complete Time: 02:44 sp3 Administered Medications: 02:50 Drug: Ondansetron IVP 4 mg IVP once; over 2 minutes Route: IVP; Site: left antecubital; cp4 05:17 Follow up: Response: No adverse reaction cp4 02:50 Drug: NS 0.9% IV 1000 ml IV at 1 bolus Per protocol; to be given as a bolus over 60 cp4 minutes Route: IV; Rate: 1 bolus; Site: left antecubital; 05:16 Follow up: Response: No adverse reaction; IV Status: Completed infusion cp4 03:41 Drug: TORadol - Ketorolac IVP 15 mg IVP once Route: IVP; Site: left antecubital; cp4 05:17 Follow up: Response: No adverse reaction; Pain is decreased cp4 04:53 Drug: Rocephin - Rocephin (cefTRIAXone) IVPB 1 grams IVPB once over 30 mins; (mix in 50 cp4 mL NS) Route: IVPB; Infused Over: 30 mins; Site: left antecubital; 05:16 Follow up: Response: No adverse reaction; IV Status: Completed infusion cp4 Disposition Summary: 07/18/24 04:52 Discharge Ordered Notes: Location: Home sp3 Condition: Stable sp3 Diagnosis - Urinary tract infection, high tract disease sp3 Followup: sp3 - With: Private Physician - When: Upon discharge from the Emergency Department - Reason: Continuance of care Discharge Instructions: - Discharge Summary Sheet sp3 - Pyelonephritis, Adult sp3 Forms: - Medication Reconciliation Form sp3 - Antibiotic Education sp3 - Prescription Opioid Use sp3 - Patient Portal Instructions sp3 - Leadership Thank You Letter sp3 Prescriptions: - Tramadol 50 mg Oral Tablet - take 1 tablet ORAL route every 8 hours as needed; 12 tablet; Refills: 0, sp3 Product Selection Permitted - Bactrim DS 800-160 mg Oral Tablet - take 1 tablet ORAL route every 12 hours for 10 days; 20 tablet; Refills: 0, sp3 Product Selection Permitted Signatures: Dispatcher [employer] EDAbimbola Jama MD MD sp3 Sonia Umana RN RN vc1 Kathy Powers cp4 Corrections: (The following items were deleted from the chart) 02:30 02:30 CBC+H.LAB.BRZ ordered. EDMS EDMS 02:30 02:30 COMPREHENSIVE METABOLIC PANEL+C.LAB.BRZ ordered. EDMS EDMS 02:30 02:30 LIPASE+C.LAB.BRZ ordered. EDMS EDMS 02:30 02:30 Test, Urine+UC.LAB.BRZ ordered. EDMS EDMS 02:30 02:30 Urinalysis+U.LAB.BRZ ordered. EDMS EDMS
[2024-07-18 12:33] VITALS: O2SAT 98
[2024-07-18 12:34] VITALS: BP 100/65
--- OUTSIDE RECORDS SUMMARY | 2024-07-19 02:18 | XMS REPORT | Continuity of Care Document ---
Author Name Unknown Address [address] [facility] [address] [place] [address] [facility] Address [address] [facility] [place]. [address] [place] [address] Care Team Providers Care Chick Grader Name Role Phone Thais Foy Primary Care Physician [phone] BANDAR BACA Attending Clinician Unavailable IRA SMITH Attending Clinician Unavailable LUANN DUMONT Attending Clinician Unavailable Ira Felix Attending Clinician [phone] Terrence [facility], Larisa Pendleton Attending Clinician Unavailab Thais Nelson Attending Clinician +[phone] Sacha Lowe MD Attending Clinician Unavailable Doctor Unassigned, [place] Attending Clinician U navailable Juan Reece DO Attending Clinician [phone] Juan LIMAhT, Cari Darden Attending Clinician Unaarjun Dumont COOLER SERVICER, Luann Attending Clinician [phone] THAIS MARIN Attending Clinician Unavailable COOKIE MELGAR Attending Clinician Unavailable COOKIE MELGAR Attending Clinician Unavailable Ramón COOLER SERVICER, Cookie Mari Attending Clinician +[phone] RY FORMAN Attending Clinician Unavailable Ry Forman MD Attending Clinician [phone] Malik COOLER SERVICER, Tawnya Attending Clinician [phone] Norma LIMAhT, Shandra Lucero Attending Clinician LUDY Knott Attending Clinician Unavail able Mauri [facility], Azalea Attending Clinician Unavailable Erik [facility], Mary Gudino Attending Clinician Unavail able Davidson tennis coach, Amadeo Attending Clinician Unavailable Lab, Lcc Attending Clinician Unavailable Navarro tennis coach, Domenica Attending Clinician Unavaila regina PRABHAKARP, Sandra Mari Attending Clinician + [phone] Unknown, Attending Attending Clinician Unavailab SANDRA Sharp Attending Clinician Unavailab juan j Morse CPhTWade Attending Clinician Unavailable Mauri [facility], [place]a Attending Clinician Unavailable Thais Foy Attending Clinician +[phone] Lab, Ang - Db Attending Clinician Unavailable Ira Felix Attending Clinician +[phone] Sacha Lowe MD Attending Clinician [phone] Juan Reece DO Attending Clinician [phone] Ludy Bridges MD Attending Clinician PAIGE MELISSA Attending Clinician Unavailable Paige Melissa MD Attending Clinician [phone] LANCE GILMAN Attending Clinician UnavailLance Mcneal MD Attending Clinician +[phone] TAWNYA GAN Attending Clinician Unavailable TAWANA JEAN Attending Clinician Unavaila BOB Moore Attending Clinician UnavailBOB Elliott Attending Clinician Unavailabl e Gustabo OT, Laurie A Attending Clinician Unavail able Onofre TONY, Bob Gudino Attending Clinician [phone] BRONWYN WELLINGTON Attending Clinician Unavailable Malik JOHNSTON, Tawnya Attending Clinician +[phone] Amish TONY, Bronwyn Attending Clinician [phone] PETE OWENS Attending Clinician Unavail able Visit, [facility] Nurse Attending Clinician Unava ilable [facility] Attending Clinician + JOCY MICHAEL Attending Clinician Unavailab BOGDAN Almeida Attending Clinician Unavailable Lorena Kirk MD Attending Clinician [phone] Jocy Michael DNP Attending Clinician [phone] [facility] Attending Clinician Unavailable Juan Hernandez DO Attending Clinician +[phone] Unurly Tran MD Attending Clinician [phone] Doctor Unassigned, Big Arm Attending Clinician U Irene Mtz MD Attending Clinician [phone] Miranda ZAPATA, Tawana Rosario Attending Clinician [phone] UNRULY TRAN Attending Clinician Unavailab JESSICA Be Attending Clinician Unavailab Jessica Be DO Attending Clinician [phone] IRENE MARI Attending Clinician Unavailable Unknown, Attending Attending Clinician Unavailab ROMULO Luna Attending Clinician Unavaila ROMULO Riggs Attending Clinician Unavaila regina Buck, [facility] Attending Clinician UnavailRomulo Casas MD Attending Clinician + [phone] CARLITO MORAN Attending Clinician Unavailable Carlito Moran MD Attending Clinician [phone] [facility] Resident Attending Clinician U LORENA Curry Attending Clinician Unavailable Shy Posada RN Attending Clinician +[phone] Keven TONY, Bandar Attending Clinician [phone] Rafa TONY, Jose Attending Clinician +[phone] Pcp-Lab Attending Clinician Unavailable Pgy2 Attending Clinician Unavailable Alissa Leon MD Attending Clinician [phone] KEVIN PELLETIER Attending Clinician UnavailKEVIN Yu Attending Clinician Unavailmarlene Giles, [facility] Attending Clinician Unavailable GAURAV JOHN Attending Clinician Unavailable Gaurav John MD Attending Clinician [phone] DEB BENAVIDEZ Attending Clinician Unavailab Deb Landa DO Attending Clinician + [phone] Mariajose Ramsey MD Attending Clinician +[phone] MARIAJOSE RAMSEY Attending Clinician Unavailable Clary Perez Attending Clinician +[phone] Ese Puga RN Attending Clinician UnavailSevero Burch MD Attending Clinicia n [facility] Attending Clinician Unavailable WILBUR IWLSON Attending Clinician Unavailable WILBUR WILSON Attending Clinician Unavailable Lab, [facility] Attending Clinician Unavailable Wilbur Wilson MD Attending Clinician [phone] 1, [facility] Attending Clinician Unavailab Saad Bynum Attending Clinician Unavailable Pcp, Patient Does Not Have A Attending Clinician Karon Wesley Attending Clinician [phone] SANDHYA ARAYA Attending Clinician Unavailable SANDHYA ARAYA Attending Clinician Unavailable Gillian Reno MD Attending Clinician + [phone] Winifred James NP Attending Clinician +[phone] Juan Torres MD Attending Clinician +[phone] ARIANA CASTRO Attending Clinician Unavailable Ariana Leigh Attending Clinician [phone] Lab, [facility] Attending Clinician Unavailable Provider, [facility] Temp Attending Clinician Sharon WILBERT Evans Attending Clinician Unavailab CM Beckham Attending Clinician Unavailable WINIFRED JAMES Attending Clinician Unavailable SULEIMAN LOERA Attending Clinician Unavailable Virginia Connelle Attending Clinician +[phone] [facility], LOUISE Piedra Attending Clinician Unavailable Jonh PRABHAKARP, Wilbert Jaffe Attending Clinician + [phone] [facility] COOLER SERVICER, Louise Piedra Attending Clinician +[phone] Sydnie COOLER SERVICER-CJamie Attending Clinician [phone] INOCENCIO Attending Clinician Unavailable JAMIE WALL Attending Clinician UnavailJAMIE López Attending Clinician UnavailSam John Attending Clinician [phone] Lara Atkinson RN Attending Clinician Unavailable Jaun Marshall DO Attending Clinician [phone] Radha Hawkins MD Attending Clinician +[phone] RADHA HAWKINS Attending Clinician Unavailmiguelito CHASE, Sam REAL Attending Clinician Unavailable Anil JOHNSTON, Luisa Jaffe Attending Clinician [phone] LUISA MA Attending Clinician Unavailable Jessica Bob MD Attending Clinician +[phone] JESSICA BOB Attending Clinician Unavailable MANAN PÉREZ III Attending Clinician Unavaila Manan Fernandes Attending Clinician +[phone] BANDAR BACA Admitting Clinician Unavailable RY FORMAN Admitting Clinician Unavailable Ry Forman MD Admitting Clinician +[phone] PAIGE MELISSA Admitting Clinician Unavailable JESSICA TORRES Admitting Clinician Unavailab CARLITO Lewis Admitting Clinician Unavailable LORENA KIRK Admitting Clinician Unavailable Lorena Kirk MD Admitting Clinician [phone] GAURAV JOHN Admitting Clinician Unavailable DEB BENAVIDEZ Admitting Clinician Unavailab MARIAJOSE James Admitting Clinician Unavailable Mariajose Ramsey MD Admitting Clinician [phone] Physician, No Primary or Family Admitting Clinic win Unavailable JUAN TORRES Admitting Clinician Unavailable Juan Torres MD Admitting Clinician [phone] ARIANA CASTRO Admitting Clinician Unavailable ELSIMIKE Admitting Clinician Unavailable RADHA HAWKINS Admitting Clinician UnavailSam Poe Admitting Clinician Unavailable LUISA MA Admitting Clinician Unavailable JESSICA BOB Admitting Clinician Unavailable MANAN PÉREZ III Admitting Clinician Unavaila ble Payers Payer Name Policy Type Policy Number Effective Date Expirati on Date Source [facility] [id number] 2022 00:00:00 [place] [id number] 2022 00:00:00 MEDICAID PENDING PENDING 2022 00:00:00 [facility] [id number] 2020 00:00:00 Problems Condition Name Condition Details Condition Category Status Onset Date Resolution Date Last Treatment Date Treating Clinician Comments Source Refractory migraine without aura Refractory migraine without aura Disease Active -16 00:00: 00 [facility] Obesity (BMI 30-39.9) Obesity (BMI 30-39.9) Disease Active 2023-06-19 00:00: 00 [facility] Change in bowel habits Change in bowel habits Disease Active 03-01 00:00: 00 [facility] Diarrhea, unspecifie d type Diarrhea, unspecifie d type Disease Active 03-01 00:00: 00 [facility] Blood in stool Blood in stool Disease Active 03-01 00:00: 00 [facility] Epigastric pain Epigastric pain Disease Active 03-01 00:00: 00 [facility] Dysphagia, unspecifie d type Dysphagia, unspecifie d type Disease Active 03-01 00:00: 00 [facility] Gastroesop hageal reflux disease, unspecifie d whether esophagiti s present Gastroesop hageal reflux disease, unspecifie d whether esophagiti s present Disease Active 03-01 00:00: 00 [facility] NSAID long-term use NSAID long-term use Disease Active 03-01 00:00: 00 [facility] Early satiety Early satiety Disease Active 2024-0 9-11 00:00: 00 [facility] Flatulence , eructation , and gas pain Flatulence , eructation , and gas pain Disease Active 9-11 00:00: 00 [facility] NSAID long-term use NSAID long-term use Disease Active 9-11 00:00: 00 [facility] Intractabl e chronic migraine with aura with status migrainosu s Intractabl e chronic migraine with aura with status migrainosu s Disease Active 9-05 00:00: 00 [facility] NADYA (obstructi ve sleep apnea) NADYA (obstructi ve sleep apnea) Disease Active 2022-06 2-31 00:00: 00 [facility] Status migrainosu s Status migrainosu s Disease Active 2022-06 1- 00:00: 00 [facility] Status post hysterosco py Status post hysterosco py Disease Active 2022-06 1-06 00:00: 00 [facility] Observed seizure-li ke activity Observed seizure-li ke activity Disease Active 2022-06 1-06 00:00: 00 [facility] Positive LAST (antinucle ar antibody) Positive LAST (antinucle ar antibody) Disease Active 2022-06 0-20 00:00: 00 [facility] 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 Disease Active 2022-06 0-20 00:00: 00 [facility] Abnormal uterine bleeding Abnormal uterine bleeding Disease Active 2022-06 0-16 00:00: 00 [facility] Multiparit y Multiparit y Disease Active 6-23 00:00: 00 [facility] History of arthritis History of arthritis Disease Active 2-21 00:00: 00 [facility] Fibrocysti c breast disease (FCBD), unspecifie d laterality Fibrocysti c breast disease (FCBD), unspecifie d laterality Disease Active 2021-06 0-14 00:00: 00 [facility] Overweight (BMI 25.0-29.9) Overweight (BMI 25.0-29.9) Disease Active 2- 00:00: 00 [facility] Overweight Overweight Disease Active 2- 00:00: 00 [facility] Anemia of mother in , antepartum Anemia of mother in , antepartum Disease Active 3-02 00:00: 00 [facility] Depression , unspecifie d depression type Depression , unspecifie d depression type Disease Active 8- 00:00: 00 [facility] UTI (urinary tract infection) during UTI (urinary tract infection) during Disease Resolve d 2022-0 6-24 00:00: 00 2023-07-01 00:00:00 2023-07-01 15:40:26 [facility] Obesity in Obesity in Disease Resolve d 2022-0 6-23 00:00: 00 2023-07-01 00:00:00 2023-07-01 15:40:29 [facility] Previous delivery affecting , antepartum Previous delivery affecting , antepartum Disease Resolve d 2022-0 6-23 00:00: 00 2023-07-01 00:00:00 2023-07-01 15:40:34 Overview: Formattin g of this note might be different from the original. x4 will need follow up usg at 28-30week s for placenta [facility] Spontaneou s Spontaneou s Disease Resolve d 2022-0 7-21 00:00: 00 2023-05-11 00:00:00 2023-05-11 10:34:39 [facility] Molar Molar Disease Resolve d 2022-0 7-17 00:00: 00 2023-05-11 00:00:00 2023-05-11 10:34:35 [facility] Susceptibl e to varicella (non-immun e), currently Susceptibl e to varicella (non-immun e), currently Disease Resolve d 2022-0 6-26 00:00: 00 2023-05-11 00:00:00 2023-05-11 10:34:30 Overview: Formattin g of this note might be different from the original. Address pp [facility] Supervisio n of high-risk Supervisio n of high-risk Disease Resolve d 6-23 00:00: 00 2023-05-11 00:00:00 2023-05-11 10:34:25 [facility] Ovarian cyst, left Ovarian cyst, left Disease Resolve d 5-04 00:00: 00 2023-05-11 00:00:00 2023-05-11 10:34:19 [facility] Miscarriag e Miscarriag e Disease Resolve d 4-08 00:00: 00 2022-10-22 00:00:00 2022-10-22 16:41:49 [facility] Maternal varicella, non-immune Maternal varicella, non-immune Disease Resolve d 2-23 00:00: 00 2022-10-22 00:00:00 2022-10-22 15:24:37 [facility] Heartburn in Heartburn in Disease Resolve d 2-21 00:00: 00 2022-10-22 00:00:00 2022-10-22 15:24:32 [facility] History of gestationa l hypertensi on History of gestationa l hypertensi on Disease Resolve d 2-21 00:00: 00 2022-10-22 00:00:00 2022-10-22 15:24:34 [facility] Hx of maternal blood transfusio n, currently Hx of maternal blood transfusio n, currently Disease Resolve d 2-21 00:00: 00 2022-10-22 00:00:00 2022-10-22 15:24:35 [facility] Nausea and vomiting, unspecifie d vomiting type Nausea and vomiting, unspecifie d vomiting type Disease Active 2-21 00:00: 00 2022-10-22 00:00:00 2022-10-22 15:24:38 [facility] Nausea and vomiting during Nausea and vomiting during Disease Resolve d 2-21 00:00: 00 2022-10-22 00:00:00 2022-10-22 15:24:38 [facility] Previous delivery affecting , antepartum Previous delivery affecting , antepartum Disease Resolve d 2017-0 2-01 00:00: 00 2022-10-22 00:00:00 2022-10-22 16:41:47 [facility] Obesity affecting Obesity affecting Disease Resolve d 2- 00:00: 00 2022-10-22 00:00:00 2022-10-22 15:24:40 [facility] Anemia of mother in , antepartum Anemia of mother in , antepartum Disease Resolve d 3-02 00:00: 00 2022-10-22 00:00:00 2022-10-22 15:24:30 [facility] Anxiety and depression affecting Anxiety and depression affecting Disease Resolve d 2015-06 1-23 00:00: 00 2022-10-22 00:00:00 2022-10-22 16:41:52 [facility] Chronic anemia Chronic anemia Disease Resolve d 2- 00:00: 00 2022-09-23 00:00:00 2022-09-23 20:28:40 [facility] Dysmenorrh ea Dysmenorrh ea Disease Resolve d 2021-06 0-29 00:00: 00 2022-08-11 00:00:00 2022-08-11 16:01:02 [facility] History of breast pain History of breast pain Disease Resolve d 1 0-29 00:00: 00 2022-08-11 00:00:00 2022-08-11 16:01:11 [facility] Breakthrou gh bleeding on contracept debra patch Breakthrou gh bleeding on contracept debra patch Disease Resolve d 2021-1 0-29 00:00: 00 2022-08-11 00:00:00 2022-08-11 16:01:01 [facility] Irregular menstrual cycle Irregular menstrual cycle Disease Resolve d 2021-06 0-14 00:00: 00 2022-08-11 00:00:00 2022-08-11 16:01:09 [facility] Encounter for surveillan ce of transderma l patch hormonal contracept debra device Encounter for surveillan ce of transderma l patch hormonal contracept debra device Disease Resolve d 2021-06 0-13 00:00: 00 2022-08-11 00:00:00 2022-08-11 16:00:08 [facility] Need for HPV vaccinatio n Need for HPV vaccinatio n Disease Resolve d 1-07 00:00: 00 2022-08-11 00:00:00 2022-08-11 16:01:12 [facility] Blood transfusio n affecting Blood transfusio n affecting Disease Resolve d 3-01 00:00: 00 2022-08-11 00:00:00 2022-08-11 20:53:05 [facility] Anemia affecting in third trimester Anemia affecting in third trimester Disease Resolve d 2-23 00:00: 00 2022-08-11 00:00:00 2022-08-11 20:52:54 [facility] Pain of both breasts Pain of both breasts Disease Resolve d 2021-06 0-14 00:00: 00 2022-04-18 00:00:00 2022-04-18 12:17:21 [facility] Screening for malignant neoplasm of the cervix Screening for malignant neoplasm of the cervix Disease Resolve d 2021-06 0-13 00:00: 00 2022-04-18 00:00:00 2022-04-18 12:17:39 [facility] Itching of vagina Itching of vagina Disease Resolve d 0 5-24 00:00: 00 2022-04-18 00:00:00 2022-04-18 12:17:14 [facility] Dysuria Dysuria Disease Resolve d 5-24 00:00: 00 2022-04-18 00:00:00 2022-04-18 12:17:37 [facility] Class 2 obesity with body mass index (BMI) of 35.0 to 35.9 in adult, unspecifie d obesity type, unspecifie d whether serious comorbidit y present Class 2 obesity with body mass index (BMI) of 35.0 to 35.9 in adult, unspecifie d obesity type, unspecifie d whether serious comorbidit y present Disease Resolve d 107 00:00: 00 2022-04-18 00:00:00 2022-04-18 12:17:34 [facility] Screening examinatio n for STD (sexually transmitte d disease) Screening examinatio n for STD (sexually transmitte d disease) Disease Resolve d 2017-06 1 00:00: 00 2022-04-18 00:00:00 2022-04-18 12:17:28 [facility] BMI 35.0-35.9, adult BMI 35.0-35.9, adult Disease Resolve d 06 00:00: 00 2022-04-18 00:00:00 2022-04-18 12:17:24 [facility] Routine follow-up Routine follow-up Disease Resolve d 2017-06 00:00: 00 2018-04-26 00:00:00 2018-04-26 16:09:28 [facility] 39 weeks gestation of 39 weeks gestation of Disease Resolve d 03-07 00:00: 00 2018-04-01 00:00:00 2018-04-01 13:20:03 [facility] Group B streptococ kavon infection during Group B streptococ kavon infection during Disease Resolve d -05 00:00: 00 2018-04-01 00:00:00 2018-04-01 13:20:06 [facility] Supervisio n of high risk , antepartum Supervisio n of high risk , antepartum Disease Resolve d 01-04 00:00: 00 2018-04-01 00:00:00 2018-04-01 13:20:11 [facility] Back pain with right-side d sciatica Back pain with right-side d sciatica Disease Resolve d -03 00:00: 00 2018-04-01 00:00:00 2018-04-01 13:20:04 [facility] Urinary tract infection without hematuria, site unspecifie d Urinary tract infection without hematuria, site unspecifie d Disease Resolve d 2-21 00:00: 00 2018-04-01 00:00:00 2018-04-01 13:20:02 [facility] Multiparit y Multiparit y Disease Resolve d 2-01 00:00: 2018-04-01 00:00:00 2018-04-01 13:20:08 [facility] H/O miscarriag e, currently H/O miscarriag e, currently Disease Resolve d 2- 00:00: 00 2018-04-01 00:00:00 2018-04-01 13:20:07 [facility] Hypertensi on Hypertensi on Disease Resolve d 2018-03-08 00:00:00 2018-03-08 07:51:04 [facility] Back pain affecting , antepartum Back pain affecting , antepartum Disease Resolve d 6-21 00:00: 00 2018-02-18 00:00:00 2018-02-18 10:57:31 [facility] History of 3 sections History of 3 sections Disease Resolve d 7-03 00:00: 00 2018-01-18 00:00:00 2018-01-18 14:54:25 [facility] Supervisio n of high risk in second trimester Supervisio n of high risk in second trimester Disease Resolve d 0 4-09 00:00: 00 2018-01-04 00:00:00 2018-01-04 10:26:26 [facility] Feeling light headed Feeling light headed Disease Resolve d 3-21 00:00: 00 2017-11-23 00:00:00 2017-11-23 15:29:15 [facility] Circumvall ate placenta during in third trimester, antepartum Circumvall ate placenta during in third trimester, antepartum Disease Resolve d 2-02 00:00: 00 2017-11-23 00:00:00 2017-11-23 15:29:06 [facility] Subchorion ic hematoma, third trimester, fetus 1 Subchorion ic hematoma, third trimester, fetus 1 Disease Resolve d 2017-0 2-02 00:00: 00 2017-11-23 00:00:00 2017-11-23 15:29:07 [facility] Supervisio n of high risk , antepartum , first trimester Supervisio n of high risk , antepartum , first trimester Disease Resolve d 0 3-13 00:00: 00 2017-09-27 00:00:00 2017-09-27 14:42:24 [facility] Supervisio n of high-risk of young primigravi da Supervisio n of high-risk of young primigravi da Disease Resolve d 0 2- 00:00: 00 2017-08-31 00:00:00 2017-08-31 07:52:24 [facility] Previous delivery affecting , antepartum Previous delivery affecting , antepartum Disease Resolve d 2016-0 4-06 00:00: 00 2017-07-22 00:00:00 2017-07-22 11:18:09 [facility] Anxiety during in third trimester, antepartum Anxiety during in third trimester, antepartum Disease Resolve d 2016-0 2-21 00:00: 00 2017-07-22 00:00:00 2017-07-22 11:18:05 [facility] High-risk , third trimester High-risk , third trimester Disease Resolve d 2016-0 2-02 00:00: 00 2017-07-22 00:00:00 2017-07-22 11:18:16 [facility] Anemia complicati ng , third trimester Anemia complicati ng , third trimester Disease Resolve d 2017-0 1-19 00:00: 00 2017-07-22 00:00:00 2017-07-22 11:17:53 [facility] Left sided sciatica Left sided sciatica Disease Resolve d 2015- 2-22 00:00: 00 2017-07-22 00:00:00 2017-07-22 11:18:01 [facility] Numbness of left foot Numbness of left foot Disease Resolve d 2015-06 2- 00:00: 00 2017-07-22 00:00:00 2017-07-22 11:17:53 [facility] Vaginal bleeding in , second trimester Vaginal bleeding in , second trimester Disease Resolve d 2015-06 2- 00:00: 00 2017-07-22 00:00:00 2017-07-22 11:17:59 [facility] E. coli UTI E. coli UTI Disease Resolve d 2015-06 00:00: 00 2017-07-22 00:00:00 2017-07-22 11:17:35 [facility] UTI in , second trimester UTI in , second trimester Disease Resolve d 2015-06 00:00: 00 2017-07-22 00:00:00 2017-07-22 11:17:41 [facility] Echogenic bowel of fetus on ultrasound Echogenic bowel of fetus on ultrasound Disease Resolve d 2015-06 00:00: 00 2017-07-22 00:00:00 2017-07-22 11:17:23 [facility] Persistent cough Persistent cough Disease Resolve d 2015-06 1 00:00: 00 2017-07-22 00:00:00 2017-07-22 11:17:26 [facility] Incomplete ABx Course Incomplete ABx Course Disease Resolve d 9-16 00:00: 00 2017-07-22 00:00:00 2017-07-22 11:17:20 [facility] GBS carrier GBS carrier Disease Resolve d 8-24 00:00: 00 2017-07-22 00:00:00 2017-07-22 11:17:16 [facility] UTI in , first trimester UTI in , first trimester Disease Resolve d 8-24 00:00: 00 2017-07-22 00:00:00 2017-07-22 11:17:31 [facility] [facility] Nausea and vomiting during prior to 22 weeks gestation Nausea and vomiting during prior to 22 weeks gestation Disease Resolve d 8-23 00:00: 00 2017-07-22 00:00:00 2017-07-22 11:17:44 [facility] Vaginal bleeding in , first trimester Vaginal bleeding in , first trimester Disease Resolve d 02-10 00:00: 00 2017-07-22 00:00:00 2017-07-22 11:17:38 [facility] Threatened miscarriag e in early Threatened miscarriag e in early Disease Resolve d 02-10 00:00: 00 2017-07-22 00:00:00 2017-07-22 11:17:29 [facility] Previous section complicati ng Previous section complicati ng Disease Resolve d 02-10 00:00: 00 2017-07-22 00:00:00 2017-07-22 11:17:13 [facility] History of dilatation and curettage History of dilatation and curettage Disease Resolve d 02-10 00:00: 00 2017-07-22 00:00:00 2017-07-22 11:17:08 [facility] Anxiety and depression Anxiety and depression Disease Resolve d 02-10 00:00: 00 2017-07-22 00:00:00 2017-07-22 11:17:52 [facility] Nausea and vomiting during prior to 22 weeks gestation Nausea and vomiting during prior to 22 weeks gestation Disease Resolve d 02-10 00:00: 00 2017-07-22 00:00:00 2017-07-22 11:17:44 [facility] 33 weeks gestation of 33 weeks gestation of Disease Resolve d 3- 00:00: 00 2016-08-25 00:00:00 2016-08-25 14:26:16 [facility] 32 weeks gestation of 32 weeks gestation of Disease Resolve d 2- 00:00: 00 2016-08-25 00:00:00 2016-08-25 14:26:12 [facility] Anxiety during in second trimester, antepartum Anxiety during in second trimester, antepartum Disease Resolve d 2015-06 1- 00:00: 00 2016-08-11 00:00:00 2016-08-11 09:11:24 [facility] Subchorion ic hematoma in second trimester Subchorion ic hematoma in second trimester Disease Resolve d 2015-06 00:00: 00 2016-08-11 00:00:00 2016-08-11 09:10:51 [facility] Vaginal bleeding Vaginal bleeding Disease Resolve d 2015-06 0 00:00: 00 2016-08-11 00:00:00 2016-08-11 09:10:25 [facility] High-risk , second trimester High-risk , second trimester Disease Resolve d 2015-06 00:00: 00 2016-07-23 00:00:00 2016-07-23 16:28:31 [facility] Circumvall ate placenta during in second trimester, antepartum Circumvall ate placenta during in second trimester, antepartum Disease Resolve d 2015-06 00:00: 00 2016-07-23 00:00:00 2016-07-23 16:27:27 [facility] Subchorion ic hematoma in first trimester Subchorion ic hematoma in first trimester Disease Resolve d 02-10 00:00: 00 2016-07-23 00:00:00 2016-07-23 16:28:07 [facility] Supervisio n of high-risk , first trimester Supervisio n of high-risk , first trimester Disease Resolve d 02-10 00:00: 00 2016-05-13 00:00:00 2016-05-13 15:40:56 [facility] Anxiety during in first trimester, antepartum Anxiety during in first trimester, antepartum Disease Resolve d 02-10 00:00: 00 2016-05-13 00:00:00 2016-05-13 15:41:37 [facility] Allergies, Adverse Reactions, Alerts Allergy Name Allergy Type Status Severity Reaction(s) Onset Date Inactive Date Treating Clinician Comments Source IODINATE D CONTRAST MEDIA Drug Class Active Anaphylaxis 01-19 00:00: 00 [facility] Iodinate d Contrast Media Propensi ty to adverse reaction s Active Anaphylaxis 01-19 00:00: 00 [facility] No Known Allergie s DA Active U 6-29 00:00: 00 CIRILO betancourt [facility] Iodine Drug Allergy Active Swelling 2 00:00: 00 [facility] Iodine Propensi ty to adverse reaction s Active Swelling 07-22 00:00: 00 [facility] IODINE DRUG INGREDI Active High Anaphylaxis 07-22 00:00: 00 [facility] Social History Social Habit Start Date Stop Date Quantity Comments Source ASSERTION 2022-11-09 00:00:00 [facility] Alcoholic beverage intake 2024-07-06 00:00:00 2024-07-06 00:00:00 Ex-drinker (finding) [facility] Alcohol intake 2023-10-20 00:00:00 2023-10-20 00:00:00 Ex-drinker (finding) [facility] History of Social function 2023-04-26 00:00:00 2023-04-26 00:00:00 [facility] Tobacco use and exposure 2023-01-09 00:00:00 2023-01-09 00:00:00 Smokeless tobacco non-user [facility] Exposure to SARS-CoV-2 (event) 2022-12-01 00:00:00 2022-12-11 09:58:00 Not sure [facility] History SDOH Alcohol Frequency 2020-06-27 00:00:00 2020-06-27 00:00:00 3 [facility] History SDOH Alcohol Std Drinks 2020-06-27 00:00:00 2020-06-27 00:00:00 99 [facility] History SDOH Alcohol Binge 2020-06-27 00:00:00 2020-06-27 00:00:00 99 [facility] Alcohol Comment 2020-06-27 00:00:00 2020-06-27 00:00:00 on occassion, liquor and beer on occassions. [facility] Sex assigned at 1995 00:00:00 1995 00:00:00 [facility] Smoking Status Start Date Stop Date Source Never smoked tobacco [facility] Medications Ordered Medication Name Filled Medication Name Start Date Stop Date Current Medication? Ordering Clinician Indication Dosage Frequency Signature (SIG) Comments Components Source DIAZEPAM 5 mg tablet 07-16 00:00: 00 Yes [id number] TAKE 1 TABLET BY MOUTH 2 TIMES DAILY NEEDED (SEVERE MIGRAINE). NO MORE THAN 2 DAYS A WEEK, 8 DAYS A MONTH. DO NOT TAKE WITH BUTALBITAL OR OTHER ASSIGNMENT OFFICER DEPRESSANT S [facility] clostridium botulinum toxin (BOTOX) injection 155 Units 07-06 18:45: 00 07-06 17:52 :00 No [id number] 155U 155 Units, Intramuscu lar, ONCE, 1 dose, On Wed07/06/24 at 1245, Routine, 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 approving Restricted medication : IRA SMITH [facility] diazePAM 5 mg tablet 2023-06 00:00: 00 07-16 00:00 :00 No [id number] 5mg Take 1 tablet by mouth 2 (two) times daily as needed (severe migraine). No more than 2 days a week, 8 days a month. Do not take with butalbital or other ASSIGNMENT OFFICER depressant s [facility] omeprazole 40 mg capsule 2023-06 00:00: 00 Yes [id number] 40mg Take 1 capsule by mouth in the morning and 1 capsule in the evening. [facility] DIAZEPAM 5 mg tablet 2023-06 00:00: 00 06-19 00:00 :00 No [id number] 5mg TAKE 1 TABLET BY MOUTH 2 (TWO) TIMES DAILY NEEDED (SEVERE MIGRAINE). NO MORE THAN 2 DAYS A WEEK, 8 DAYS A MONTH. DO NOT TAKE WITH BUTALBITAL OR OTHER ASSIGNMENT OFFICER DEPRESSANT S [facility] ondansetron (ZOFRAN (PF)) injection 4 mg 2023-06 21:30: 00 05-09 20:41 :00 No 4mg 4 mg, Slow IV Push, ONCE, On Wed05/09/24 at 1530, For 1 dose, PACU, Please give medication over 2-5 minutes. [facility] simethicone (GAS RELIEF (SIMETHICON E)) 40 mg/0.6 mL drops 2023-06 19:41: 00 05-09 22:50 :59 No PRN, Starting on Wed05/09/24 at 1341, Until Wed05/09/24 at 1650, Routine, Intra-op [facility] eletriptan 40 mg tablet 2023-06 00:00: 00 Yes [id number] 40mg Take 1 tablet by mouth SEE-INSTRU CTIONS. Take 1 tab at onset of migraine. May repeat in 2 hours if necessary. No more than 9 days per month [facility] clostridium botulinum toxin (BOTOX) injection 155 Units 2023-06 15:30: 00 04-13 14:43 :00 No [id number] 155U 155 Units, Intramuscu lar, ONCE, 1 dose, On Wed04/13/24 at 1030, Routine, 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 approving Restricted medication : IRA SMITH [facility] scopolamine transdermal 1 mg over 3 days patch 2023-06 00:00: 00 Yes [id number] 1.5mg Apply 1 Patch to area(s) every 72 (seventy-t wo) hours. For motion sickness, cruise ship [facility] diazePAM 5 mg tablet 2023-06 00:00: 00 05-11 00:00 :00 No [id number] 5mg Take 1 tablet by mouth 2 (two) times daily as needed (severe migraine). No more than 2 days a week, 8 days a month. Do not take with butalbital or other ASSIGNMENT OFFICER depressant s [facility] peg-electro lyte soln 236-22.74-6 .74 -5.86 gram solution 03-01 00:00: 00 05-09 00:00 :00 No [id number] Take as directed before colonoscop y [facility] butalbital- acetaminoph en-caff 50-325-40 mg tablet 02-23 00:00: 00 Yes [id number] 1{tbl} Take 1 tablet by mouth every 4 (four) hours as needed (severe migraine). Use sparingly no more than 9 days per month [facility] methocarbam oL 750 mg tablet 02-23 00:00: 00 Yes [id number] 750mg Take 1 tablet by mouth 3 (three) times daily as needed for Other (muscle spasms). [facility] ketorolac 10 mg tablet 02-23 00:00: 00 Yes [id number] 10mg Take 1 tablet by mouth every 6 (six) hours as needed (migraine) . [facility] ubrogepant (UBRELVY) 100 mg tablet 02-23 00:00: 00 Yes [id number] 100mg Take 1 tablet by mouth at onset of migraine symptoms. May repeat in 2 hours if needed. Max of 2 tablets per 24 hours. [facility] proMETHazin e 25 mg tablet 02-23 00:00: 00 Yes [id number] 25mg Take 1 tablet by mouth every 4 (four) hours as needed for N/V alternatin g with Ondansetro n. [facility] diazePAM 2 mg tablet 02-23 00:00: 00 04-13 00:00 :00 No [id number] 2mg Take 1 tablet by mouth 2 (two) times daily as needed (severe migraine). No more than 2 days a week, 8 days a month. Do not take with butalbital or other ASSIGNMENT OFFICER depressant s [facility] ciprofloxac in-dexameth asone 0.3-0.1 % otic drops 02-16 00:00: 00 02-24 04:59 :00 No [id number] 4[drp] Place 4 Drops in left ear in the morning and 4 Drops in the evening. Do all this for 7 days. [facility] bromphenira mine-pseudo ephedrine-D M 2-30-10 mg/5 mL syrup 02-16 00:00: 00 02-22 04:59 :00 No [id number] 5mL Take 5 mL by mouth 4 (four) times daily as needed for Congestion /Allergies for up to 5 days. [facility] atogepant (QULIPTA) 60 mg Tab tablet 01-17 00:00: 00 Yes [id number] 60mg Take 1 tablet by mouth in the morning. [facility] ALPRAZolam (XANAX) 0.5 mg tablet 11-24 00:00: 00 11-25 04:59 :00 No [id number] .5mg Take 1 tablet by mouth once now for 1 dose. [facility] azelastine 137 mcg (0.1 %) nasal spray 11-16 00:00: 00 Yes [id number] 1{spray } USE 1 SPRAY IN EACH NOSTRIL IN THE MORNING AND 1 SPRAY IN THE EVENING DIRECTED [facility] ondansetron (ZOFRAN-ODT ) disintegrat ing tablet 8 mg 11-15 18:30: 00 11-15 17:43 :00 No [id number] 8mg 8 mg, Oral, ONCE, 1 dose, On Wed11/16/23 at 1330, Routine [facility] clostridium botulinum toxin (BOTOX) injection 155 Units 11-15 18:30: 00 11-15 17:44 :00 No [id number] 155U 155 Units, Intramuscu lar, ONCE, 1 dose, On Wed11/16/23 at 1330, Routine, 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 approving Restricted medication : IRA SMITH [facility] lidocaine 5 % (700 mg/patch) patch 11-15 00:00: 00 Yes [id number] 1{patch } Apply 1 Patch to area(s) in the morning and 1 Patch in the evening. [facility] ondansetron 8 mg disintegrat ing tablet 11-15 00:00: 00 Yes [id number] 8mg Take 1 tablet by mouth every 8 (eight) hours as needed for Nausea and Vomiting (N/V) (or migraine). [facility] ondansetron 4 mg disintegrat ing tablet 11-15 00:00: 00 2024- 05-30 00:00 :00 No [id number] 4mg Take 1 tablet by mouth every 8 (eight) hours as needed for Nausea and Vomiting (N/V). [facility] azelastine 137 mcg (0.1 %) nasal spray 10-31 00:00: 00 11-16 00:00 :00 No [id number] 1{spray } USE 1 SPRAY IN EACH NOSTRIL IN THE MORNING AND 1 SPRAY IN THE EVENING DIRECTED [facility] HYDROcodone -acetaminop hen (NORCO) 10-325 mg tablet 1 tablet 10-26 05:15: 00 10-26 04:19 :00 No 1{tbl} 1 tablet, Oral, ONCE NOW, 1 dose, On Wed10/27/23 at 0015, Routine [facility] acetaminoph en-codeine 300-30 mg tablet 10-26 00:00: 00 11-03 04:59 :00 No [id number] 1{tbl} Take 1 tablet by mouth every 4 (four) hours as needed for Pain (scale 7-10) for up to 7 days. Indication s: acute pain [facility] minoxidiL 2.5 mg tablet 10-19 00:00: 00 Yes [id number] 2.5mg Take 1 tablet by mouth in the morning. [facility] hydroxychlo roquine (PLAQUENIL) 200 mg tablet 08 00:00: 00 Yes [id number] 300mg Take 1.5 tablets by mouth in the morning. [facility] azelastine 137 mcg (0.1 %) nasal spray 09-15 00:00: 00 10-31 00:00 :00 No [id number] 1{spray } USE 1 SPRAY IN EACH NOSTRIL IN THE MORNING AND 1 SPRAY IN THE EVENING DIRECTED [facility] DULoxetine 30 mg capsule 27 00:00: 00 Yes [id number] 30mg Take 1 capsule by mouth in the morning and 1 capsule in the evening. First week, take only 1 capsule in morning, and then twice daily thereafter . [facility] minoxidiL 2.5 mg tablet 3 00:00: 00 10-19 00:00 :00 No [id number] 2.5mg Take 1 tablet by mouth in the morning. [facility] methocarbam oL 750 mg tablet 3-11 00:00: 00 02-23 00:00 :00 No 750mg Take 1 tablet by mouth 3 (three) times daily as needed for Other (muscle spasms). [facility] butalbital- acetaminoph en-caff 50-325-40 mg tablet 08-25 00:00: 02-23 00:00 :00 No [id number] 1{tbl} Take 1 tablet by mouth every 4 (four) hours as needed (severe migraine). Use sparingly no more than 9 days per month [facility] nortriptyli ne 50 mg capsule 08-16 00:00: 00 Yes [id number] 1-2 po QHS [facility] sumatriptan (IMITREX) 100 mg tablet 08-16 00:00: 00 Yes [id number] 100mg Take 1 tablet by mouth as needed for Migraine. May repeat in 2h if headache remains [facility] ondansetron 4 mg disintegrat ing tablet 08-16 00:00: 11-15 00:00 :00 No [id number] 4mg Take 1 tablet by mouth every 8 (eight) hours as needed for Nausea and Vomiting (N/V). [facility] butalbital- acetaminoph en-caff 50-325-40 mg tablet 08-16 00:00: 00 08-25 00:00 :00 No [id number] 1{tbl} Take 1 tablet by mouth every 4 (four) hours as needed (severe migraine). Use sparingly no more than 9 days per month [facility] azelastine 137 mcg (0.1 %) nasal spray 1- 00:00: 00 09-15 00:00 :00 No [id number] 1{spray } USE 1 SPRAY IN EACH NOSTRIL IN THE MORNING AND 1 SPRAY IN THE EVENING DIRECTED [facility] gabapentin 300 mg capsule 17 00:00: 00 Yes [id number] 300mg Take 1 capsule by mouth 3 (three) times daily as needed (pain). [facility] methocarbam oL 750 mg tablet 16 00:00: 00 08-29 00:00 :00 No 750mg Take 1 tablet by mouth 3 (three) times daily as needed for Other (muscle spasms). [facility] Nitrofurant oin&Nit. Macrocryst (MACROBID) 100 mg capsule 15 00:00: 00 07-16 05:59 :00 No [id number] 100mg Take 1 capsule by mouth in the morning and 1 capsule in the evening. Do all this for 10 days. [facility] metroNIDAZO LE 500 mg tablet 07-02 00:00: 00 07-03 05:59 :00 No [id number] 2000mg Take 4 tablets by mouth once now for 1 dose. [facility] HYDROcodone -acetaminop hen 5-325 mg tablet 06-23 00:00: 00 07-01 05:59 :00 No [id number] 1{tbl} Take 1 tablet by mouth every 6 (six) hours as needed for Pain (scale 7-10) for up to 7 days. Indication s: acute pain [facility] ondansetron (ZOFRAN-ODT ) disintegrat ing tablet 4 mg 06-22 01:45: 00 06-22 00:58 :00 No 4mg 4 mg, Oral, ONCE, 1 dose, On Wed06/21/23 at 1945, Routine [facility] HYDROcodone -acetaminop hen (NORCO 5) 5-325 mg tablet 1 tablet 06-22 01:30: 00 06-22 00:53 :00 No 1{tbl} 1 tablet, Oral, ONCE, 1 dose, On Wed06/21/23 at 1930, Routine [facility] methocarbam oL (ROBAXIN) tablet 1,000 mg 06-22 01:00: 00 06-22 00:58 :00 No 1000mg 1,000 mg, Oral, ONCE, 1 dose, On Wed06/21/23 at 1900, DOUGLAS [facility] traMADoL 50 mg tablet 06-21 00:00: 00 06-29 05:59 :00 No [id number] 50mg Take 1 tablet by mouth every 6 (six) hours as needed for Pain (scale 1-3) for up to 7 days. Indication s: acute pain [facility] ondansetron (ZOFRAN-ODT ) disintegrat ing tablet 8 mg 2022-06 03:30: 00 06-17 02:39 :00 No [id number] 8mg [facility] methylPREDN ISolone sod succ (SOLU-MEDRO L (PF)) injection 40 mg 2022-06 03:30: 00 06-17 02:46 :00 No [id number] 40mg [facility] ketorolac (TORADOL) injection 60 mg 2022-06 03:15: 00 06-17 02:47 :00 No [id number] 60mg [facility] methylpredn isolone sod succ (SOLU-MEDRO L) injection 125 mg 2022-06 03:15: 00 06-17 02:32 :47 No [id number] 125mg [facility] albuterol (VENTOLIN) inhaler 2 Puff 2022-06 03:15: 00 06-17 02:40 :00 No [id number] 2{puff} [facility] albuterol 90 mcg/actuati on inhaler 2022-06 00:00: 00 Yes [id number] 2{puff} Inhale 2 Puffs every 6 (six) hours as needed for Wheezing or Shortness of Breath. [facility] benzonatate 100 mg capsule 2022-06 00:00: 00 Yes [id number] 200mg Take 2 capsules by mouth every 8 (eight) hours as needed for Cough. [facility] amoxicillin -clavulanat e (AUGMENTIN) 875-125 mg per tablet 2022-06 00:00: 00 06-27 05:59 :00 No [id number] 1{tbl} Take 1 tablet by mouth in the morning and 1 tablet in the evening. Do all this for 10 days. [facility] predniSONE 20 mg tablet 2022-06 00:00: 00 06-22 05:59 :00 No [id number] 40mg Take 2 tablets by mouth in the morning for 5 days. [facility] bromphenira mine-pseudo ephedrine-D M (BROMFED DM) 2-30-10 mg/5 mL syrup 2022-06 00:00: 00 01-20 00:00 :00 No [id number] 5mL Take 5 mL by mouth 4 (four) times daily as needed for Cold symptoms. [facility] azelastine 137 mcg (0.1 %) nasal spray 2022-06 00:00: 00 07-21 00:00 :00 No [id number] 1{spray } Use 1 [place] in each nostril in the morning and 1 [place] in the evening. Use in each nostril as directed [facility] amoxicillin -clavulanat e (AUGMENTIN) 875-125 mg per tablet 2022-06 00:00: 00 06-16 00:00 :00 No [id number] 1{tbl} Take 1 tablet by mouth in the morning and 1 tablet in the evening. [facility] topiramate 25 mg tablet 2022-06 00:00: 00 01-17 00:00 :00 No [id number] 25mg Take 1 tablet by mouth in the morning and 1 tablet in the evening. [facility] amitriptyli ne 25 mg tablet 2022-06 00:00: 00 08-16 00:00 :00 No [id number] 50mg Take 2 tablets by mouth at bedtime. [facility] SUMAtriptan (IMITREX) 50 mg tablet 2022-06 00:00: 00 08-16 00:00 :00 No [id number] 50mg Take 1 tablet by mouth as needed for Migraine. [facility] hydroxychlo roquine (PLAQUENIL) 200 mg tablet 2022-06 00:00: 00 09-15 00:00 :00 No [id number] 300mg Take 1.5 tablets by mouth in the morning. [facility] Methylpredn isolone (MEDROL) tablet 4 mg [...] Wed05/03/23 at 1700, Routine [Order 2 End] [facility] ferrous sulfate 325 mg (65 mg iron) tablet 2022-06 17:08: 54 01-20 00:00 :00 No 325mg Take 1 tablet by mouth in the morning. [facility] SUMAtriptan (IMITREX) tablet 100 mg 2022-06 16:45: 00 05-01 16:41 :00 No 100mg 100 mg, Oral, ONCE, 1 dose, On 05/01/23 at 1045, Routine [facility] amitriptyli ne (ELAVIL) tablet 25 mg 2022-06 03:00: 00 Yes 25mg 25 mg, Oral, QHS, First dose (after last modificati on) on Wed04/30/23 at 2100, Until Discontinu ed, Routine [facility] topiramate (TOPAMAX) tablet 25 mg 2022-06 03:00: 00 05-07 02:59 :00 No 25mg 25 mg, Oral, QHS, 6 doses, First dose (after last modificati on) on Wed04/30/23 at 2100, Last dose on Wed05/05/23 at 2100, Routine
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 approving Restricted medication : LORENA KIRK [facility] proCHLORper azine 5 mg tablet 2022-06 00:00: 00 07-31 05:59 :00 No [id number] 10mg Take 2 tablets by mouth every 6 (six) hours as needed for Nausea and Vomiting (N/V) for up to 90 days. [facility] topiramate 25 mg tablet 2022-06 00:00: 00 05-06 00:00 :00 No [id number] 25mg Take 1 tablet by mouth in the morning and 1 tablet in the evening. Do all this for 90 days. [facility] enoxaparin (LOVENOX) injection 40 mg 2022-06 23:00: 00 Yes 40mg 40 mg, Subcutaneo us, DAILY AT 1700, First dose on Wed04/30/23 at 1700, Until Discontinu ed, Routine [facility] SUMAtriptan (IMITREX) tablet 100 mg 2022-06 20:30: 00 04-30 20:40 :00 No 100mg 100 mg, Oral, ONCE, 1 dose, On Wed04/30/23 at 1430, Routine [facility] topiramate (TOPAMAX) tablet 25 mg 2022-06 19:45: 00 04-30 20:47 :23 No 25mg 25 mg, Oral, DAILY, 7 doses, First dose on Wed04/30/23 at 1345, Last dose on Wed05/06/23 at 0900, Routine
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 approving Restricted medication : LORENA KIRK [facility] ketorolac (TORADOL) injection 30 mg 2022-06 15:30: 00 04-30 16:07 :00 No 30mg 30 mg, Slow IV Push, ONCE NOW, 1 dose, On Wed04/30/23 at 0930, DOUGLAS [facility] diphenhydrA MINE (BENADRYL) injection 25 mg 2022-06 15:28: 20 Yes 25mg 25 mg, Intravenou s, Q8HPRN, Starting on Wed04/30/23 at 0928, Until Discontinu ed, Routine, Nausea and Vomiting (N/V), Headache [facility] proCHLORper azine (COMPAZINE) 10 mg in NaCl 0.9% (NS) piggyback 2022-06 15:20: 49 Yes 10mg 10 mg, IV Piggyback, at 100 mL/hr Administer over 30 Minutes, Q8HPRN, Starting on Wed04/30/23 at 0920, Until Discontinu ed, Routine, Nausea and Vomiting (N/V) [facility] acetaminoph en (TYLENOL) tablet 650 mg 2022-06 15:15: 23 Yes 650mg 650 mg, Oral, Q6HPRN, Starting on Wed04/30/23 at 0915, Until Discontinu ed, Routine, Pain (scale 1-3), Pain (scale 4-6) [facility] NaCl 0.9% (NS) IV infusion 1,000 mL 2022-06 14:15: 00 Yes 1000mL at 75 mL/hr, IV Infusion, CONTINUOUS , Starting on Wed04/30/23 at 0815, Until Discontinu ed, Routine [facility] acetamino en-codeine (TYLENOL #3) 300-30 mg tablet 1 tablet 2022-06 05:02: 17 Yes 1{tbl} 1 tablet, Oral, Q4HPRN, Starting on Wed04/29/23 at 2302, Until Discontinu ed, Routine, Pain (scale 4-6) [facility] gadobenate dimeglumine (MULTIHANCE -20 mL) injection 18.72 mL 2022-06 03:30: 00 04-30 03:30 :00 No [id number] .2mL/kg 18.72 mL (0.2 mL/kg ?93.6 kg), Intravenou s, ONCE, 1 dose, On Wed04/29/23 at 2130, Routine [facility] amitriptyli ne (ELAVIL) tablet 15 mg 2022-06 03:00: 00 04-30 17:22 :47 No 15mg 15 mg, Oral, QHS, First dose on Wed04/29/23 at 2100, Until Discontinu ed, Routine [facility] HYDROcodone -acetaminop hen (NORCO 5) 5-325 mg tablet 1 tablet 2022-06 01:00: 00 04-30 00:13 :00 No 1{tbl} 1 tablet, Oral, ONCE, 1 dose, On Wed04/29/23 at 1900, Routine [facility] amitriptyli ne 25 mg tablet 2022-06 00:00: 00 05-06 00:00 :00 No [id number] 25mg Take 1 tablet by mouth at bedtime. [facility] SUMAtriptan (IMITREX) 50 mg tablet 2022-06 00:00: 00 05-06 00:00 :00 No [id number] 50mg Take 1 tablet by mouth as needed for Migraine for up to 9 doses. [facility] topiramate 25 mg tablet 2022-06 00:00: 00 05-01 00:00 :00 No [id number] Take 1 tablet by mouth at bedtime for 6 days, THEN 1 tablet 2 (two) times daily for 84 days. [facility] magnesium oxide 420 mg Tab 2022-06 00:00: 00 04-29 00:00 :00 No [id number] 400mg Take 400 mg by mouth in the morning. [facility] LORazepam (ATIVAN) tablet 0.5 mg 2022-06 22:30: 00 04-30 02:13 :00 No .5mg 0.5 mg, Oral, ONCE, 1 dose, On Trista 04/29/23 at 1630, Routine [facility] ibuprofen (IBU) tablet 600 mg 2022-06 16:13: 04-29 22:19 :36 No 600mg 600 mg, Oral, Q6HPRN, Starting on Trista 04/29/23 at 1013, Until Trista 04/29/23 at 1619, Routine, Headache, 1-10 pain [facility] magnesium oxide 400 mg (241.3 mg magnesium) tablet 2022-06 00:00: 00 Yes [id number] 400mg Take 1 tablet by mouth in the morning. [facility] ibuprofen 600 mg tablet 2022-06 00:00: 00 01-20 00:00 :00 No [id number] 100 600mg Take 1 tablet by mouth every 6 (six) hours as needed for Pain (scale 1-3). [facility] amitriptyli ne 10 mg tablet 2022-06 00:00: 00 04-30 00:00 :00 No [id number] 15mg Take 1.5 tablets by mouth at bedtime. [facility] amitriptyli ne 10 mg tablet 2022-06 00:00: 00 04-29 00:00 :00 No [id number] 10mg Take 1 tablet by mouth at bedtime. [facility] benzocaine- menthoL (CEPACOL SORE THROAT (RHONDA-MEN)) lozenge 1 Lozenge 2022-06 18:38: 10 Yes 1{lozen ge} 1 Lozenge, Oral, Q4HPRN, Starting on Wed04/28/23 at 1238, Until Discontinu ed, Routine, Sore throat [facility] ondansetron (ZOFRAN (PF)) injection 4 mg 2022-06 16:25: 19 Yes 4mg 4 mg, Slow IV Push, Q6HPRN, Nausea and Vomiting (N/V), Starting on Wed04/28/23 at 1025
Do ses of ondansetro n 16 mg and above need to be administer ed via IV piggyback. For Dose >=24mg ECG monitoring is advisable.
[facility] ketorolac (TORADOL) injection 30 mg 2022-06 00:30: 00 04-28 15:23 :00 No 30mg 30 mg, Slow IV Push, Q8H ABX, 3 doses, First dose on Wed04/27/23 at 1830, Last dose on Wed04/28/23 at 1030, Routine [facility] magnesium sulfate in water 2 gram/50 mL (4 %) infusion 2 g 2022-06 00:15: 00 04-28 01:11 :00 No 2g 2 g, IV Piggyback, Administer over 60 Minutes, ONCE, 1 dose, On Wed04/27/23 at 1815, Routine [facility] ondansetron (ZOFRAN (PF)) injection 4 mg 2022-06 16:30: 00 04-27 15:46 :00 No 4mg 4 mg, Slow IV Push, ONCE, On Wed04/27/23 at 1030, For 1 dose
Do ses of ondansetro n 16 mg and above need to be administer ed via IV piggyback. For Dose >=24mg ECG monitoring is advisable.
[facility] amitriptyli ne (ELAVIL) tablet 10 mg 2022-06 03:00: 00 04-29 22:27 :33 No 10mg 10 mg, Oral, QHS, First dose on Wed04/26/23 at 2100, Until Discontinu ed, Routine [facility] magnesium sulfate in water 4 gram/50 mL (8 %) IV Piggyback 4 g 2022-06 23:30: 00 04-27 06:00 :00 No 4g 4 g, IV Piggyback, at 25 mL/hr Administer over 120 Minutes, ONCE, 1 dose, On Wed04/26/23 at 1730, Routine [facility] acetaminoph en (TYLENOL) tablet 500 mg 2022-06 23:15: 55 04-29 22:27 :33 No 500mg 500 mg, Oral, Q6HPRN, Starting on Wed04/26/23 at 1715, Until Trista 04/29/23 at 1627, Routine, Pain (scale 4-6) [facility] ibuprofen (IBU) tablet 600 mg 2022-06 23:15: 43 04-27 23:24 :39 No 600mg 600 mg, Oral, Q6HPRN, Starting on Wed04/26/23 at 1715, Until Wed04/27/23 at 1724, Routine, Pain (scale 1-3) [facility] valproate (DEPACON) 250 mg in D5W piggyback 2022-06 21:30: 00 04-27 19:59 :00 No 250mg 250 mg, IV Piggyback, TID, 3 doses, First dose on Wed04/26/23 at 1530, Last dose on Wed04/27/23 at 0800, Administer over 60 Minutes, 100 mL [facility] magnesium oxide (MAG-OX 400) tablet 400 mg 2022-06 20:45: 00 04-29 22:27 :33 No 400mg 400 mg, Oral, DAILY, First dose on Wed04/26/23 at 1445, Until Discontinu ed, Routine [facility] diphenhydrA MINE (BENADRYL) injection 25 mg 2022-06 20:00: 00 04-26 19:18 :00 No 25mg 25 mg, Intravenou s, ONCE, 1 dose, On Wed04/26/23 at 1400, Routine [facility] ibuprofen (IBU) tablet 800 mg 2022-06 19:15: 00 04-26 18:30 :00 No 800mg 800 mg, Oral, ONCE, 1 dose, On Wed04/26/23 at 1315, Routine [facility] HYDROcodone -acetaminop hen (NORCO 5) 5-325 mg tablet 1 tablet 2022-06 14:30: 00 04-26 16:00 :00 No 1{tbl} 1 tablet, Oral, ONCE, 1 dose, On Wed04/26/23 at 0830, Routine, PACU [facility] proMETHazin e (PHENERGAN) 12.5 mg in NS 50 mL IV piggyback (CNR) 2022-06 14:19: 50 04-26 20:10 :00 No 12.5mg 12.5 mg, IV Piggyback, at 200 mL/hr Administer over 15 Minutes, PRN, 1 dose, Starting on Wed04/26/23 at 0819, Until Wed04/26/23 at 1410, Routine, Nausea and Vomiting (N/V), PACU [facility] ferrous sulfate 325 mg (65 mg iron) tablet 2022-06 08:55: 33 Yes 325mg Take 1 tablet by mouth in the morning. [facility] hydroxychlo roquine 200 mg tablet 2022-06 00:00: 00 05-04 00:00 :00 No [id number] 200mg Take 1 tablet by mouth in the morning. [facility] ferrous sulfate 325 mg (65 mg iron) tablet 2022-06 16:56: 08 Yes 325mg Take 1 tablet by mouth in the morning. [facility] ondansetron 4 mg disintegrat ing tablet 2022-06 00:00: 00 08-16 00:00 :00 No [id number] 4mg Take 1 tablet by mouth every 8 (eight) hours as needed for Nausea and Vomiting (N/V). [facility] predniSONE 5 mg tablet 2022-06 00:00: 00 04-25 04:59 :00 No [id number] Take 3 tablets by mouth daily for 5 days, THEN 2 tablets daily for 5 days, THEN 1 tablet daily for 5 days. [facility] ferrous sulfate 325 mg (65 mg iron) tablet 2022-06 14:04: 54 Yes 325mg Take 1 tablet by mouth in the morning. [facility] norethindro ne 0.35 mg tablet 2022-06 00:00: 00 07-05 05:59 :00 No [id number] 100 .35mg Take 1 tablet by mouth in the morning for 90 days. [facility] medroxyPROG ESTERone (PROVERA) 5 mg tablet 2022-0616 00:00: 00 04-13 04:59 :00 No [id number] 100 5mg Take 1 tablet by mouth in the morning for 7 days. [facility] OZEMPIC 0.25 mg or 0.5 mg (2 mg/3 mL) PnIj 03-17 00:00: 00 01-20 00:00 :00 No INJECT 0.5 MG SUBCUTANEO USLY WEEKLY. [facility] metroNIDAZO LE 500 mg tablet 03-17 00:00: 00 04-07 00:00 :00 No TAKE ONE (1) TABLET(S) BY MOUTH EVERY TWELVE HOURS FOR 7 DAYS. [facility] ciprofloxac in HCl 500 mg tablet 03-17 00:00: 00 04-07 00:00 :00 No TAKE ONE (1) TABLET(S) BY MOUTH EVERY TWELVE HOURS FOR SEVEN DAYS. [facility] phentermine 37.5 mg tablet 03-12 00:00: 00 01-20 00:00 :00 No 37.5mg Take 1 tablet by mouth in the morning. [facility] norelgestro min-ethinyl estradiol (XULANE) 150-35 mcg/24 hr patch 02-01 00:00: 00 Yes [id number] 1{patch } Apply 1 Patch to skin weekly. [facility] ondansetron (ZOFRAN (PF)) injection 4 mg 01-26 02:45: 00 01-26 02:53 :00 No 4mg 4 mg, Slow IV Push, ONCE, 1 dose, On Wed01/25/23 at 2145, DOUGLAS [facility] morpHINE (4 mg/mL) injection 4 mg 01-26 02:45: 00 01-26 02:53 :00 No 4mg 4 mg, Slow IV Push, ONCE, 1 dose, On Wed01/25/23 at 2145, STAT [facility] gabapentin (NEURONTIN) capsule 300 mg 01-09 15:00: 00 Yes 300mg 300 mg, Oral, TID, First dose on 01/09/23 at 1000, Until Discontinu ed, Routine [facility] ibuprofen (IBU) tablet 600 mg 01-09 13:45: 00 Yes 600mg 600 mg, Oral, Q6H, First dose (after last modificati on) on 01/09/23 at 0845, Until Discontinu ed, Routine [facility] oxyCODONE immediate release tablet 5 mg 01-09 07:00: 00 01-09 06:30 :00 No 5mg 5 mg, Oral, ONCE, 1 dose, On 01/09/23 at 0200, Routine
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 approving Restricted medication : [facility] proMETHazin e (PHENERGAN) 25 mg in NaCl 0.9% (NS) 50 mL IV piggyback 01-09 06:04: 38 Yes 25mg 25 mg, IV Piggyback, Q4HPRN, Starting on 01/09/23 at 0104, Until Discontinu ed, Routine, Nausea and Vomiting (N/V) [facility] lactated ringers IV infusion 1,000 mL 01-09 05:45: 00 Yes 1000mL at 100 mL/hr, 1,000 mL, IV Infusion, CONTINUOUS , Starting on 01/09/23 at 0045, Until Discontinu ed, Routine, PACU [facility] ondansetron (ZOFRAN (PF)) injection 4 mg 01-09 05:40: 11 Yes 4mg 4 mg, Slow IV Push, Q6HPRN, Starting on 01/09/23 at 0040, Until Discontinu ed, Routine, Nausea and Vomiting (N/V) [facility] FENTanyl PF (SUBLIMAZE (PF)) injection 25 mcg 01-09 04:09: 38 01-09 04:36 :00 No 25ug 25 mcg, Slow IV Push, Q5MIN PRN, 4 doses, Starting on Wed01/08/23 at 2309, Until Wed01/08/23 at 2336, Routine, Pain (scale 4-6), PACU [facility] HYDROmorphO ne (DILAUDID) injection 0.2 mg 01-09 04:09: 38 01-09 05:30 :19 No .2mg 0.2 mg, Slow IV Push, Q5MIN PRN, 10 doses, Starting on Wed01/08/23 at 2309, Until Wed01/09/23 at 0030, Routine, Pain (scale 7-10), PACU
Us e approved by (Faculty): PACU USE -ANESTHESI A SERVICE-HY DROMORPHON E INJECTIONS [facility] HYDROcodone -acetaminop hen (NORCO 5) 5-325 mg tablet 2 tablet 01-09 04:05: 17 Yes 2{tbl} 2 tablet, Oral, Q6HPRN, Starting on Wed01/08/23 at 2305, Until Discontinu ed, Routine, Pain (scale 7-10) [facility] bupivacaine (preserv free) (SENSORCAIN E MPF) 0.25 % (2.5 mg/mL) injection 01-09 02:15: 00 Yes PRN, Starting on Wed01/08/23 at 2115, Until Discontinu ed, Routine, Intra-op [facility] sodium chloride 0.9 % irrigation solution 01-09 00:50: 00 Yes PRN, Starting on Wed01/08/23 at 1950, Until Discontinu ed, Intra-op [facility] doxycycline hyclate (Vibramycin ) capsule 100 mg 01-09 00:03: 07 01-09 00:14 :00 No 100mg 100 mg, Oral, O.R. HOLDING ONCE, 1 dose, Starting on Wed01/08/23 at 1903, Until Wed01/08/23 at 1914, DOUGLAS, Surgery/Pr ocedure
Reason for Anti-Infec tive: Surgical Prophylaxi s
Surgi kavon Prophylaxi s: PRODUCT INSPECTION COORDINATOR
Duration of therapy: within 24 hours of surgery [facility] ibuprofen 800 mg tablet 01-09 00:00: 00 04-27 00:00 :00 No [id number] 800mg Take 1 tablet by mouth every 8 (eight) hours as needed (Pain). [facility] HYDROcodone -acetaminop hen 5-325 mg tablet 01-09 00:00: 00 04-07 00:00 :00 No [id number] 1{tbl} Take 1 tablet by mouth every 6 (six) hours as needed (Pain). Indication s: acute pain [facility] NaCl 0.9% (NS) IV infusion 1,000 mL 01-08 20:15: 00 01-09 05:41 :08 No 1000mL at 150 mL/hr, Intravenou s, CONTINUOUS , Starting on Wed01/08/23 at 1515, Until Wed01/09/23 at 0041, DOUGLAS [facility] FENTanyl PF (SUBLIMAZE (PF)) injection 25 mcg 01-08 20:00: 00 01-08 19:18 :00 No 25ug 25 mcg, Slow IV Push, ONCE, 1 dose, On Wed01/08/23 at 1500, Routine [facility] diphenhydrA MINE (BENADRYL) injection 25 mg 01-08 16:53: 00 01-08 16:46 :00 No 25mg 25 mg, Slow IV Push, ONCE, 1 dose, On Wed01/08/23 at 1200, STAT [facility] NaCl 0.9% (NS) bolus infusion 1,000 mL 01-08 16:45: 00 01-08 19:12 :00 No 1000mL at 999 mL/hr, 1,000 mL, IV Infusion, ONCE, 1 dose, On Wed01/08/23 at 1145[facility] ([facility]/mL) [facility] 4 mg 01-08 16:00: 00 01-08 16:43 :00 No 4mg 4 mg, Slow IV Push, ONCE, 1 dose, On Wed01/08/23 at 1100, STAT [facility] ondansetron (ZOFRAN (PF)) injection 4 mg 01-08 16:00: 00 01-08 16:43 :00 No 4mg 4 mg, Slow IV Push, ONCE, 1 dose, On Wed01/08/23 at 1100, DOUGLAS [facility] NaCl 0.9% (NS) bolus infusion 1,000 mL 01-02 04:45: 00 01-02 05:51 :00 No 1000mL at 999 mL/hr, 1,000 mL, IV Piggyback, ONCE, 1 dose, On Wed01/01/23 at 2345, STAT [facility] ondansetron 4 mg disintegrat ing tablet 01-02 00:00: 00 04-09 00:00 :00 No [id number] 4mg Take 1 tablet by mouth every 12 (twelve) hours as needed for Nausea and Vomiting (N/V). [facility] acetaminoph en-codeine 300-30 mg tablet 01-02 00:00: 00 01-08 00:00 :00 No [id number] 1{tbl} Take 1 tablet by mouth every 6 (six) hours as needed for Pain (scale 7-10) for up to 7 days. Indication s: acute pain [facility] doxylamine- pyridoxine, vit B6, (DICLEGIS) 10-10 mg per tablet 12-21 00:00: 00 04-09 00:00 :00 No [id number] Day 1: Take 2 tablet before bed. Day 2: If still having nausea and vomiting 2 tablet bed. Day 3 take 1 tablet in am and 2 tablet at bed [facility] HYDROcodone -acetaminop hen 7.5-325 mg per tablet 12-17 00:00: 00 01-08 00:00 :00 No TAKE 1 TABLET BY MOUTH EVERY 4 HOURS FOR PAIN [facility] ketorolac 10 mg tablet 12-17 00:00: 00 01-08 00:00 :00 No 10mg Take 1 tablet by mouth every 8 (eight) hours as needed. [facility] Nitrofurant oin&Nit. Macrocryst (MACROBID) 100 mg capsule 12-14 00:00: 00 12-25 04:59 :00 No [id number] 100mg Take 1 capsule by mouth in the morning and 1 capsule in the evening. Do all this for 10 days. [facility] Nitrofurant oin&Nit. Macrocryst (MACROBID) 100 mg capsule 12-12 00:00: 00 12-23 04:59 :00 No [id number] 100mg Take 1 capsule by mouth in the morning and 1 capsule in the evening. Do all this for 10 days. [facility] cetirizine HCl (ZYRTEC ORAL) 12-11 11:04: 03 12-11 00:00 :00 No Take by mouth. [facility] vitamin w/FA tablet 12-11 00:00: 00 Yes [id number] 1{tbl} Take 1 tablet by mouth in the morning. [facility] vitamin w/FA tablet 12-11 00:00: 00 Yes [id number] 1{tbl} Take 1 tablet by mouth in the morning. [facility] proMETHazin e 25 mg tablet 12-11 00:00: 00 01-08 00:00 :00 No [id number] 25mg Take 1 tablet by mouth every 6 (six) hours as needed for Nausea and Vomiting (N/V). [facility] TRINATAL RX 1 60 mg iron-1 mg tablet 12-11 00:00: 00 01-08 00:00 :00 No 1{tbl} Take 1 tablet by mouth every morning. [facility] norelgestro min-ethinyl estradiol 150-35 mcg/24 hr patch 11-12 00:00: 00 12-10 00:00 :00 No [id number] 1{patch } Apply 1 Patch to skin weekly. [facility] SERTraline (ZOLOFT) 100 mg tablet 10-22 00:00: 00 12-11 00:00 :00 No [id number] 100mg Take 1 tablet by mouth in the morning. [facility] ondansetron (ZOFRAN-ODT ) disintegrat ing tablet 4 mg 09-28 13:40: 00 09-28 13:44 :00 No 4mg 4 mg, Oral, ONCE, 1 dose, On Wed09/28/22 at 0845, Routine [facility] cetirizine HCl (ZYRTEC ORAL) 09-28 13:30: 35 Yes Take by mouth. [facility] lactated ringers IV infusion 1,000 mL 09-28 02:45: 00 Yes 1000mL at 42 mL/hr, 1,000 mL, IV Infusion, CONTINUOUS , Starting on Wed09/27/22 at 2145, Until Discontinu ed, Routine [facility] HYDROmorphO ne (DILAUDID) injection 0.5 mg 09-28 01:50: 58 09-28 03:05 :22 No .5mg 0.5 mg, Slow IV Push, Q5MIN PRN, 4 doses, Starting on Wed09/27/22 at 2050, Until Wed09/27/22 at 2204, DOUGLAS, Pain (scale 7-10), PACU
Us e approved by (Faculty): ADC PROVIDER [facility] HYDROcodone -acetaminop hen (NORCO 5) 5-325 mg tablet 2 tablet 09-28 01:40: 53 Yes 2{tbl} 2 tablet, Oral, Q6HPRN, Starting on Wed09/27/22 at 2039, Until Discontinu ed, Routine, Pain (scale 7-10) [facility] HYDROcodone -acetaminop hen (NORCO 5) 5-325 mg tablet 1 tablet 09-28 01:40: 46 Yes 1{tbl} 1 tablet, Oral, Q6HPRN, Starting on Wed09/27/22 at 2039, Until Discontinu ed, Routine, Pain (scale 4-6) [facility] water for irrigation irrigation solution 09-28 01:20: 00 Yes PRN, Starting on Wed09/27/22 at 2020, Until Discontinu ed, Routine, Intra-op [facility] HYDROcodone -acetaminop hen 5-325 mg tablet 09-28 00:00: 00 11-12 00:00 :00 No [id number] 1{tbl} Take 1 tablet by mouth every 6 (six) hours as needed for Pain (scale 4-6). Indication s: acute pain [facility] miSOPROStoL (CYTOTEC) tablet 800 mcg 09-27 14:15: 00 09-27 13:36 :00 No 800ug 800 mcg, Oral, ONCE, 1 dose, On 09/27/22 at 0915, Routine [facility] D5W 0.9% NaCl (NS) IV infusion 1,000 mL 09-27 05:30: 00 Yes 1000mL at 125 mL/hr, 1,000 mL, IV Infusion, CONTINUOUS , Starting on 09/27/22 at 0030, Until Discontinu ed, Routine [facility] HYDROcodone -acetaminop hen (NORCO) 10-325 mg tablet 1 tablet 09-27 04:45: 00 09-27 03:42 :00 No 1{tbl} 1 tablet, Oral, ONCE NOW, 1 dose, On 09/26/22 at 2345, Routine [facility] diphenhydrA MINE (BENADRYL) injection 25 mg 09-27 04:40: 31 Yes 25mg 25 mg, Intravenou s, Q6HPRN, Starting on 09/26/22 at 2340, Until Discontinu ed, Routine, Itching [facility] ketorolac (TORADOL) injection 30 mg 09-27 04:33: 40 09-29 04:32 :40 No 30mg 30 mg, Slow IV Push, Q6HPRN, Starting on 09/26/22 at 2333, Until 09/28/22 at 2332, Routine, Pain (scale 1-3), Pain (scale 4-6) [facility] FENTanyl PF (SUBLIMAZE (PF)) injection 50 mcg 09-27 04:33: 26 Yes 50ug 50 mcg, Slow IV Push, Q2HPRN, Starting on 09/26/22 at 2333, Until Discontinu ed, Routine, Pain (scale 7-10) [facility] metoclopram julia HCl (REGLAN) injection 10 mg 09-27 03:45: 00 09-27 03:43 :00 No 10mg 10 mg, Slow IV Push, ONCE, 1 dose, On 09/26/22 at 2245, DOUGLAS [facility] NaCl 0.9% (NS) IV infusion 1,000 mL 09-27 03:30: 00 09-27 03:42 :00 No 1000mL at 999 mL/hr, Intravenou s, ONCE, 1 dose, On 09/26/22 at 2230, Routine [facility] ondansetron (ZOFRAN (PF)) injection 4 mg 09-27 02:45: 00 09-27 02:42 :00 No 4mg 4 mg, Slow IV Push, ONCE, 1 dose, On 09/26/22 at 2145, DOUGLAS [facility] FENTanyl PF (SUBLIMAZE (PF)) injection 25 mcg 09-27 02:45: 00 09-27 02:42 :00 No 25ug 25 mcg, Slow IV Push, ONCE, 1 dose, On 09/26/22 at 2145, STAT [facility] ketorolac (TORADOL) injection 30 mg 09-27 01:15: 00 09-27 00:42 :00 No 30mg 30 mg, Slow IV Push, ONCE, 1 dose, On 09/26/22 at 2015, Routine [facility] NaCl 0.9% (NS) IV infusion 1,000 mL 09-27 01:15: 00 09-27 02:37 :41 No 1000mL at 999 mL/hr, Intravenou s, CONTINUOUS , Starting on 09/26/22 at 2014, Until 09/26/22 at 2137, DOUGLAS [facility] ondansetron (ZOFRAN (PF)) injection 4 mg 2022-0 09-27 00:30: 00 09-27 00:34 :00 No 4mg 4 mg, Slow IV Push, ONCE, 1 dose, On 09/26/22 at 1930, DOUGLAS [facility] morpHINE (4 mg/mL) injection 4 mg 09-27 00:15: 00 09-27 00:35 :00 No 4mg 4 mg, Slow IV Push, ONCE, 1 dose, On 09/26/22 at 1915, STAT [facility] SERTraline (ZOLOFT) 50 mg tablet 09-23 00:00: 00 10-22 00:00 :00 No [id number] 100 50mg Take 1 tablet by mouth in the morning. [facility] proMETHazin e 25 mg tablet 08-11 00:00: 00 11-12 00:00 :00 No [id number] 25mg Take 1 tablet by mouth every 4 (four) hours as needed for Nausea and Vomiting (N/V). [facility] Iron Fum & P-FA-Vit B & C No.9 (INTEGRA PLUS) 125 mg iron- 1 mg Cap 08-11 00:00: 00 11-12 00:00 :00 No [id number] 1{capsu le} Take 1 capsule by mouth daily. [facility] Iron Fum & P-FA-Vit B & C No.9 (INTEGRA PLUS) 125 mg iron- 1 mg Cap 08-11 00:00: 00 11-12 00:00 :00 No [id number] 1{capsu le} Take 1 capsule by mouth daily. [facility] HYDROcodone -acetaminop hen (NORCO) 10-325 mg tablet 1 tablet 2021-06 09:30: 00 04-27 08:47 :00 No 1{tbl} 1 tablet, Oral, ONCE, 1 dose, On Wed04/27/22 at 0330, Routine [facility] ketorolac (TORADOL) injection 30 mg 2021-06 09:00: 00 04-27 08:25 :00 No 30mg 30 mg, Slow IV Push, ONCE, 1 dose, On 11/7/22 at 0300, Routine [facility] tranexamic acid 650 mg tablet 2021-06 00:00: 00 05-03 05:59 :00 No [id number] 100 1300mg Take 2 tablets by mouth in the morning and 2 tablets at noon and 2 tablets in the evening. Do all this for 5 days. [facility] omeprazole 10 mg capsule 12-30 19:26: 59 12-30 00:00 :00 No 10mg Take 10 mg by mouth daily. [facility] norelgestro min-ethinyl estradiol (XULANE) 150-35 mcg/24 hr patch 12-30 00:00: 00 04-27 00:00 :00 No [id number] 1{patch } Apply 1 Patch to skin weekly. For 3 weeks, followed by 1 week no ptach [facility] ibuprofen 600 mg tablet 9- 00:00: 00 12-30 00:00 :00 No [id number] 600mg Take 1 tablet by mouth every 6 (six) hours as needed for Pain (scale 4-6). [facility] cetirizine HCl (ZYRTEC ORAL) 06-27 15:45: 25 Yes Take by mouth. [facility] ibuprofen 600 mg tablet 2019-06 00:00: 00 06-27 00:00 :00 No [id number] 600mg Take 1 tablet by mouth every 6 (six) hours as needed for Pain (scale 4-6). [facility] ondansetron (ZOFRAN ODT) 4 mg disintegrat ing tablet 2019-06 0 00:00: 00 06-27 00:00 :00 No [id number] 4mg Take 1 tablet by mouth every 8 (eight) hours as needed for Nausea and Vomiting (N/V). [facility] traMADol 50 mg tablet 6-16 00:00: 00 06-27 00:00 :00 No [id number] 50mg Take 1 tablet by mouth every 6 (six) hours as needed (pain). [facility] proMETHazin e 25 mg tablet 6-16 00:00: 06-27 00:00 :00 No [id number] 25mg Take 1 tablet by mouth every 6 (six) hours as needed for Nausea and Vomiting (N/V). [facility] ibuprofen 600 mg tablet 5-27 00:00: 00 06-27 00:00 :00 No [id number] 600mg Take 1 tablet by mouth every 6 (six) hours as needed for Pain (scale 4-6). [facility] acetaminoph en-codeine 300-30 mg tablet 5-27 00:00: 00 06-27 00:00 :00 No [id number] 1{tbl} Take 1 tablet by mouth every 4 (four) hours as needed for Pain (scale 4-6). [facility] ondansetron 4 mg disintegrat ing tablet 3-12 00:00: 06-27 00:00 :00 No [id number] 4mg Take 1 tablet by mouth every 4 (four) hours as needed for Nausea and Vomiting (N/V). [facility] acetaminoph en-codeine 300-30 mg tablet 3-12 00:00: 00 06-27 00:00 :00 No [id number] 1{tbl} Take 1-2 tablets by mouth every 6 (six) hours as needed (cough). [facility] ibuprofen 800 mg tablet 3-12 00:00: 00 06-27 00:00 :00 No [id number] 800mg Take 1 tablet by mouth every 8 (eight) hours as needed for Pain (scale 4-6). [facility] sod chlor-bicar b-squeez bottle (NEILMED SINUS RINSE COMPLETE) pkdv 2018-06 2-20 00:00: 00 06-27 00:00 :00 No [id number] 1{bottl e} Use 1 Bottle in each nostril 2 (two) times daily. Use in hot shower 1 hour before bedtime [facility] promethazin e-codeine 6.25-10 mg/5 mL syrup 2018-06 00:00: 00 06-27 00:00 :00 No [id number] 5mL Take 5 mL by mouth 4 (four) times daily as needed for Cough. [facility] traMADol (ULTRAM) 50 mg tablet 2018-06 00:00: 00 06-27 00:00 :00 No [id number] 50mg Take 1 tablet by mouth every 8 (eight) hours as needed for Pain (scale 4-6). [facility] Immunizations Ordered Immunization Name Filled Immunization Name Date Status Comments Source HPV9 2020-06-27 00:00:00 Completed [facility] 2020-06-27 00:00:00 Completed [facility] 2020-06-27 00:00:00 Completed [facility] 2020-06-27 00:00:00 Completed [facility] 2020-06-27 00:00:00 Completed [facility] 2020-06-27 00:00:00 Completed [facility] 2020-06-27 00:00:00 Completed [facility] 2020-06-27 00:00:00 Completed [facility] 2020-06-27 00:00:00 Completed [facility] 2020-06-27 00:00:00 Completed [facility] 2020-06-27 00:00:00 Completed [facility] 2020-06-27 00:00:00 Completed [facility] 2020-06-27 00:00:00 Completed [facility] HPV9 2020-06-27 00:00:00 Completed [facility] HPV9 2020-06-27 00:00:00 Completed [facility] HPV9 2020-06-27 00:00:00 Completed [facility] HPV9 2020-06-27 00:00:00 Completed [facility] 2020-06-27 00:00:00 Completed [facility] 2020-06-27 00:00:00 Completed [facility] 2020-06-27 00:00:00 Completed [facility] HPV9 2020-06-27 00:00:00 Completed [facility] HPV9 2020-06-27 00:00:00 Completed [facility] HPV9 2020-06-27 00:00:00 Completed [facility] HPV9 2020-06-27 00:00:00 Completed [facility] HPV9 2020-06-27 00:00:00 Completed [facility] HPV9 2020-06-27 00:00:00 Completed [facility] HPV9 2020-06-27 00:00:00 Completed [facility] HPV9 2020-06-27 00:00:00 Completed [facility] HPV9 2020-06-27 00:00:00 Completed [facility] HPV9 2020-06-27 00:00:00 Completed [facility] HPV9 2020-06-27 00:00:00 Completed [facility] HPV9 2020-06-27 00:00:00 Completed [facility] HPV9 2020-06-27 00:00:00 Completed [facility] HPV9 2020-06-27 00:00:00 Completed [facility] HPV9 2020-06-27 00:00:00 Completed [facility] HPV9 2020-06-27 00:00:00 Completed [facility] HPV9 2020-06-27 00:00:00 Completed [facility] HPV9 2020-06-27 00:00:00 Completed [facility] HPV9 2020-06-27 00:00:00 Completed [facility] HPV9 2020-06-27 00:00:00 Completed [facility] HPV9 2020-06-27 00:00:00 Completed [facility] HPV9 2020-06-27 00:00:00 Completed [facility] HPV9 2020-06-27 00:00:00 Completed [facility] HPV9 2020-06-27 00:00:00 Completed [facility] HPV9 2020-06-27 00:00:00 Completed [facility] HPV9 2020-06-27 00:00:00 Completed [facility] HPV9 2020-06-27 00:00:00 Completed [facility] TDAP 2017-12-21 00:00:00 Completed [facility] TDAP 2017-12-21 00:00:00 Completed [facility] TDAP 2017-12-21 00:00:00 Completed [facility] TDAP 2017-12-21 00:00:00 Completed [facility] TDAP 2017-12-21 00:00:00 Completed [facility] TDAP 2017-12-21 00:00:00 Completed [facility] TDAP 2017-12-21 00:00:00 Completed [facility] TDAP 2017-12-21 00:00:00 Completed [facility] TDAP 2017-12-21 00:00:00 Completed [facility] TDAP 2017-12-21 00:00:00 Completed [facility] TDAP 2017-12-21 00:00:00 Completed [facility] TDAP 2017-12-21 00:00:00 Completed [facility] TDAP 2017-12-21 00:00:00 Completed [facility] TDAP 2017-12-21 00:00:00 Completed [facility] TDAP 2017-12-21 00:00:00 Completed [facility] TDAP 2017-12-21 00:00:00 Completed [facility] TDAP 2017-12-21 00:00:00 Completed [facility] TDAP 2017-12-21 00:00:00 Completed [facility] TDAP 2017-12-21 00:00:00 Completed [facility] TDAP 2017-12-21 00:00:00 Completed [facility] TDAP 2017-12-21 00:00:00 Completed [facility] TDAP 2017-12-21 00:00:00 Completed [facility] TDAP 2017-12-21 00:00:00 Completed [facility] TDAP 2017-12-21 00:00:00 Completed [facility] TDAP 2017-12-21 00:00:00 Completed [facility] TDAP 2017-12-21 00:00:00 Completed [facility] TDAP 2017-12-21 00:00:00 Completed [facility] TDAP 2017-12-21 00:00:00 Completed [facility] TDAP 2017-12-21 00:00:00 Completed [facility] TDAP 2017-12-21 00:00:00 Completed [facility] TDAP 2017-12-21 00:00:00 Completed [facility] TDAP 2017-12-21 00:00:00 Completed [facility] TDAP 2017-12-21 00:00:00 Completed [facility] TDAP 2017-12-21 00:00:00 Completed [facility] TDAP 2017-12-21 00:00:00 Completed [facility] TDAP 2017-12-21 00:00:00 Completed [facility] TDAP 2017-12-21 00:00:00 Completed [facility] TDAP 2017-12-21 00:00:00 Completed [facility] TDAP 2017-12-21 00:00:00 Completed [facility] TDAP 2017-12-21 00:00:00 Completed [facility] TDAP 2017-12-21 00:00:00 Completed [facility] TDAP 2017-12-21 00:00:00 Completed [facility] TDAP 2017-12-21 00:00:00 Completed [facility] TDAP 2017-12-21 00:00:00 Completed [facility] TDAP 2017-12-21 00:00:00 Completed [facility] TDAP 2017-12-21 00:00:00 Completed [facility] TDAP 2017-12-21 00:00:00 Completed [facility] TDAP 2016-07-09 00:00:00 Completed [facility] TDAP 2016-07-09 00:00:00 Completed [facility] TDAP 2016-07-09 00:00:00 Completed [facility] TDAP 2016-07-09 00:00:00 Completed [facility] TDAP 2016-07-09 00:00:00 Completed [facility] TDAP 2016-07-09 00:00:00 Completed [facility] TDAP 2016-07-09 00:00:00 Completed [facility] TDAP 2016-07-09 00:00:00 Completed [facility] TDAP 2016-07-09 00:00:00 Completed [facility] TDAP 2016-07-09 00:00:00 Completed [facility] TDAP 2016-07-09 00:00:00 Completed [facility] TDAP 2016-07-09 00:00:00 Completed [facility] TDAP 2016-07-09 00:00:00 Completed [facility] TDAP 2016-07-09 00:00:00 Completed [facility] TDAP 2016-07-09 00:00:00 Completed [facility] TDAP 2016-07-09 00:00:00 Completed [facility] TDAP 2016-07-09 00:00:00 Completed [facility] TDAP 2016-07-09 00:00:00 Completed [facility] TDAP 2016-07-09 00:00:00 Completed [facility] TDAP 2016-07-09 00:00:00 Completed [facility] TDAP 2016-07-09 00:00:00 Completed [facility] TDAP 2016-07-09 00:00:00 Completed [facility] TDAP 2016-07-09 00:00:00 Completed [facility] TDAP 2016-07-09 00:00:00 Completed [facility] TDAP 2016-07-09 00:00:00 Completed [facility] TDAP 2016-07-09 00:00:00 Completed [facility] TDAP 2016-07-09 00:00:00 Completed [facility] TDAP 2016-07-09 00:00:00 Completed [facility] TDAP 2016-07-09 00:00:00 Completed [facility] TDAP 2016-07-09 00:00:00 Completed [facility] TDAP 2016-07-09 00:00:00 Completed [facility] TDAP 2016-07-09 00:00:00 Completed [facility] TDAP 2016-07-09 00:00:00 Completed [facility] TDAP 2016-07-09 00:00:00 Completed [facility] TDAP 2016-07-09 00:00:00 Completed [facility] TDAP 2016-07-09 00:00:00 Completed [facility] TDAP 2016-07-09 00:00:00 Completed [facility] TDAP 2016-07-09 00:00:00 Completed [facility] TDAP 2016-07-09 00:00:00 Completed [facility] TDAP 2016-07-09 00:00:00 Completed TDAP 2016-07-09 00:00:00 Completed [facility] TDAP 2016-07-09 00:00:00 Completed [facility] TDAP 2016-07-09 00:00:00 Completed [facility] TDAP 2016-07-09 00:00:00 Completed [facility] TDAP 2016-07-09 00:00:00 Completed [facility] TDAP 2016-07-09 00:00:00 Completed [facility] TDAP 2016-07-09 00:00:00 Completed [facility] Influenza Virus Vaccine Quad IM 3+ YRS 2016-03-25 00:00:00 Completed [facility] Influenza Virus Vaccine Quad IM 3+ YRS 2016-03-25 00:00:00 Completed [facility] Influenza Virus Vaccine Quad IM 3+ YRS 2016-03-25 00:00:00 Completed [facility] Influenza Virus Vaccine Quad IM 3+ YRS 2016-03-25 00:00:00 Completed [facility] Influenza Virus Vaccine Quad IM 3+ YRS 2016-03-25 00:00:00 Completed [facility] Influenza Virus Vaccine Quad IM 3+ YRS 2016-03-25 00:00:00 Completed [facility] Influenza Virus Vaccine Quad IM 3+ YRS 2016-03-25 00:00:00 Completed [facility] Influenza Virus Vaccine Quad IM 3+ YRS 2016-03-25 00:00:00 Completed [facility] Influenza Virus Vaccine Quad IM 3+ YRS 2016-03-25 00:00:00 Completed [facility] Influenza Virus Vaccine Quad IM 3+ YRS 2016-03-25 00:00:00 Completed [facility] Influenza Virus Vaccine Quad IM 3+ YRS 2016-03-25 00:00:00 Completed [facility] Influenza Virus Vaccine Quad IM 3+ YRS 2016-03-25 00:00:00 Completed [facility] Influenza Virus Vaccine Quad IM 3+ YRS 2016-03-25 00:00:00 Completed [facility] Influenza Virus Vaccine Quad IM 3+ YRS 2016-03-25 00:00:00 Completed [facility] Influenza Virus Vaccine Quad IM 3+ YRS 2016-03-25 00:00:00 Completed [facility] Influenza Virus Vaccine Quad IM 3+ YRS 2016-03-25 00:00:00 Completed [facility] Influenza Virus Vaccine Quad IM 3+ YRS 2016-03-25 00:00:00 Completed [facility] Influenza Virus Vaccine Quad IM 3+ YRS 2016-03-25 00:00:00 Completed [facility] Influenza Virus Vaccine Quad IM 3+ YRS 2016-03-25 00:00:00 Completed [facility] Influenza Virus Vaccine Quad IM 3+ YRS 2016-03-25 00:00:00 Completed [facility] Influenza Virus Vaccine Quad IM 3+ YRS 2016-03-25 00:00:00 Completed [facility] Influenza Virus Vaccine Quad IM 3+ YRS 2016-03-25 00:00:00 Completed [facility] Influenza Virus Vaccine Quad IM 3+ YRS 2016-03-25 00:00:00 Completed [facility] Influenza Virus Vaccine Quad IM 3+ YRS 2016-03-25 00:00:00 Completed [facility] Influenza Virus Vaccine Quad IM 3+ YRS 2016-03-25 00:00:00 Completed [facility] Influenza Virus Vaccine Quad IM 3+ YRS 2016-03-25 00:00:00 Completed [facility] Influenza Virus Vaccine Quad IM 3+ YRS 2016-03-25 00:00:00 Completed [facility] Influenza Virus Vaccine Quad IM 3+ YRS 2016-03-25 00:00:00 Completed [facility] Influenza Virus Vaccine Quad IM 3+ YRS 2016-03-25 00:00:00 Completed [facility] Influenza Virus Vaccine Quad IM 3+ YRS 2016-03-25 00:00:00 Completed [facility] Influenza Virus Vaccine Quad IM 3+ YRS 2016-03-25 00:00:00 Completed [facility] Influenza Virus Vaccine Quad IM 3+ YRS 2016-03-25 00:00:00 Completed [facility] Influenza Virus Vaccine Quad IM 3+ YRS 2016-03-25 00:00:00 Completed [facility] Influenza Virus Vaccine Quad IM 3+ YRS 2016-03-25 00:00:00 Completed [facility] Influenza Virus Vaccine Quad IM 3+ YRS 2016-03-25 00:00:00 Completed [facility] Influenza Virus Vaccine Quad IM 3+ YRS 2016-03-25 00:00:00 Completed [facility] Influenza Virus Vaccine Quad IM 3+ YRS 2016-03-25 00:00:00 Completed [facility] Influenza Virus Vaccine Quad IM 3+ YRS 2016-03-25 00:00:00 Completed [facility] Influenza Virus Vaccine Quad IM 3+ YRS 2016-03-25 00:00:00 Completed [facility] Influenza Virus Vaccine Quad IM 3+ YRS 2016-03-25 00:00:00 Completed [facility] Influenza Virus Vaccine Quad IM 3+ YRS 2016-03-25 00:00:00 Completed [facility] Influenza Virus Vaccine Quad IM 3+ YRS 2016-03-25 00:00:00 Completed [facility] Influenza Virus Vaccine Quad IM 3+ YRS 2016-03-25 00:00:00 Completed [facility] Influenza Virus Vaccine Quad IM 3+ YRS 2016-03-25 00:00:00 Completed [facility] Influenza Virus Vaccine Quad IM 3+ YRS 2016-03-25 00:00:00 Completed [facility] Influenza Virus Vaccine Quad IM 3+ YRS 2016-03-25 00:00:00 Completed [facility] Influenza Virus Vaccine Quad IM 3+ YRS 2016-03-25 00:00:00 Completed [facility] Influenza Virus Vaccine Quad IM 3+ YRS Unknown Completed [facility] TDAP Unknown Completed [facility] HPV9 Unknown Completed [facility] Influenza Virus Vaccine Quad IM 3+ YRS Unknown Completed [facility] TDAP Unknown Completed [facility] HPV9 Unknown Completed [facility] Influenza Virus Vaccine Quad IM 3+ YRS Unknown Completed [facility] TDAP Unknown Completed [facility] HPV9 Unknown Completed [facility] Influenza Virus Vaccine Quad IM 3+ YRS Unknown Completed [facility] TDAP Unknown Completed [facility] HPV9 Unknown Completed [facility] Influenza Virus Vaccine Quad IM 3+ YRS Unknown Completed [facility] TDAP Unknown Completed [facility] HPV9 Unknown Completed [facility] Influenza Virus Vaccine Quad IM 3+ YRS Unknown Completed [facility] TDAP Unknown Completed [facility] HPV9 Unknown Completed [facility] Influenza Virus Vaccine Quad IM 3+ YRS Unknown Completed [facility] TDAP Unknown Completed [facility] HPV9 Unknown Completed [facility] Influenza Virus Vaccine Quad IM 3+ YRS Unknown Completed [facility] TDAP Unknown Completed [facility] HPV9 Unknown Completed [facility] Influenza Virus Vaccine Quad IM 3+ YRS Unknown Completed [facility] TDAP Unknown Completed [facility] HPV9 Unknown Completed [facility] Influenza Virus Vaccine Quad IM 3+ YRS Unknown Completed [facility] TDAP Unknown Completed [facility] HPV9 Unknown Completed [facility] Influenza Virus Vaccine Quad IM 3+ YRS Unknown Completed [facility] TDAP Unknown Completed [facility] HPV9 Unknown Completed [facility] Influenza Virus Vaccine Quad IM 3+ YRS Unknown Completed [facility] TDAP Unknown Completed [facility] Influenza Virus Vaccine Quad IM 3+ YRS Unknown Completed [facility] TDAP Unknown Completed [facility] HPV9 Unknown Completed [facility] Influenza Virus Vaccine Quad IM 3+ YRS Unknown Completed [facility] TDAP Unknown Completed [facility] HPV9 Unknown Completed [facility] HPV9 Unknown Completed [facility] TDAP Unknown Completed [facility] Influenza Virus Vaccine Quad IM 3+ YRS Unknown Completed [facility] HPV9 Unknown Completed [facility] TDAP Unknown Completed [facility] Influenza Virus Vacc[facility] Quad IM 3+ YRS Unknown Completed [facility] HPV9 Unknown Completed [facility] TDAP Unknown Completed [facility] Influenza Virus Vaccine Quad IM 3+ YRS Unknown Completed [facility] TDAP Unknown Completed [facility] HPV9 Unknown Completed [facility] Influenza Virus Vaccine Quad IM 3+ YRS Unknown Completed [facility] TDAP Unknown Completed [facility] HPV9 Unknown Completed [facility] Influenza Virus Vaccine Quad IM 3+ YRS Unknown Completed [facility] HPV9 Unknown Completed [facility] HPV9 Unknown Completed [facility] TDAP Unknown Completed [facility] Influenza Virus Vaccine Quad IM 3+ YRS Unknown Completed [facility] TDAP Unknown Completed [facility] HPV9 Unknown Completed [facility] TDAP Unknown Completed [facility] Influenza Virus Vaccine Quad IM 3+ YRS Unknown Completed [facility] Influenza Virus Vaccine Quad IM 3+ YRS Unknown Completed [facility] HPV9 Unknown Completed [facility] TDAP Unknown Completed [facility] Influenza Virus Vaccine Quad IM 3+ YRS Unknown Completed [facility] TDAP Unknown Completed [facility] HPV9 Unknown Completed [facility] Influenza Virus Vaccine Quad IM 3+ YRS Unknown Completed [facility] TDAP Unknown Completed [facility] HPV9 Unknown Completed [facility] Influenza Virus Vaccine Quad IM 3+ YRS Unknown Completed [facility] Influenza Virus Vaccine Quad IM 3+ YRS Unknown Completed [facility] TDAP Unknown Completed [facility] HPV9 Unknown Completed [facility] Influenza Virus Vaccine Quad IM 3+ YRS Unknown Completed [facility] TDAP Unknown Completed [facility] HPV9 Unknown Completed [facility] Influenza Virus Vaccine Quad IM 3+ YRS Unknown Completed [facility] HPV9 Unknown Completed [facility] TDAP Unknown Completed [facility] Influenza Virus Vaccine Quad IM 3+ YRS Unknown Completed [facility] TDAP Unknown Completed [facility] HPV9 Unknown Completed [facility] Influenza Virus Vaccine Quad IM 3+ YRS Unknown Completed [facility] TDAP Unknown Completed [facility] HPV9 Unknown Completed [facility] Influenza Virus Vaccine Quad IM 3+ YRS Unknown Completed [facility] TDAP Unknown Completed [facility] HPV9 Unknown Completed [facility] Influenza Virus Vaccine Quad IM 3+ YRS Unknown Completed [facility] TDAP Unknown Completed [facility] HPV9 Unknown Completed [facility] Influenza Virus Vaccine Quad IM 3+ YRS Unknown Completed [facility] HPV9 Unknown Completed [facility] TDAP Unknown Completed [facility] Influenza Virus Vaccine Quad IM 3+ YRS Unknown Completed [facility] TDAP Unknown Completed [facility] HPV9 Unknown Completed [facility] Influenza Virus Vaccine Quad IM 3+ YRS Unknown Completed [facility] TDAP Unknown Completed [facility] HPV9 Unknown Completed [facility] Influenza Virus Vaccine Quad IM 3+ YRS Unknown Completed [facility] TDAP Unknown Completed [facility] HPV9 Unknown Completed [facility] Influenza Virus Vaccine Quad IM 3+ YRS Unknown Completed [facility] TDAP Unknown Completed [facility] HPV9 Unknown Completed [facility] Influenza Virus Vaccine Quad IM 3+ YRS Unknown Completed [facility] TDAP Unknown Completed [facility] HPV9 Unknown Completed [facility] Influenza Virus Vaccine Quad IM 3+ YRS Unknown Completed [facility] TDAP Unknown Completed [facility] HPV9 Unknown Completed [facility] Influenza Virus Vaccine Quad IM 3+ YRS Unknown Completed [facility] TDAP Unknown Completed [facility] HPV9 Unknown Completed [facility] Influenza Virus Vaccine Quad IM 3+ YRS Unknown Completed [facility] TDAP Unknown Completed [facility] HPV9 Unknown Completed [facility] Influenza Virus Vaccine Quad IM 3+ YRS Unknown Completed [facility] TDAP Unknown Completed [facility] HPV9 Unknown Completed [facility] Influenza Virus Vacc[facility] Quad IM 3+ YRS Unknown Completed [facility] TDAP Unknown Completed [facility] HPV9 Unknown Completed [facility] Influenza Virus Vaccine Quad IM 3+ YRS Unknown Completed [facility] TDAP Unknown Completed [facility] HPV9 Unknown Completed [facility] Influenza Virus Vaccine Quad IM 3+ YRS Unknown Completed [facility] TDAP Unknown Completed [facility] HPV9 Unknown Completed [facility] Influenza Virus Vaccine Quad IM 3+ YRS Unknown Completed [facility] TDAP Unknown Completed [facility] HPV9 Unknown Completed [facility] Influenza Virus Vaccine Quad IM 3+ YRS Unknown Completed [facility] TDAP Unknown Completed [facility] HPV9 Unknown Completed [facility] Influenza Virus Vaccine Quad IM 3+ YRS Unknown Completed [facility] HPV9 Unknown Completed [facility] TDAP Unknown Completed [facility] Influenza Virus Vaccine Quad IM 3+ YRS Unknown Completed [facility] TDAP Unknown Completed [facility] HPV9 Unknown Completed [facility] Influenza Virus Vaccine Quad IM 3+ YRS Unknown Completed [facility] TDAP Unknown Completed [facility] HPV9 Unknown Completed [facility] Influenza Virus Vaccine Quad IM 3+ YRS Unknown Completed [facility] TDAP Unknown Completed [facility] HPV9 Unknown Completed [facility] Influenza Virus Vaccine Quad IM 3+ YRS Unknown Completed [facility] TDAP Unknown Completed [facility] HPV9 Unknown Completed [facility] Influenza Virus Vaccine Quad IM 3+ YRS Unknown Completed [facility] HPV9 Unknown Completed [facility] TDAP Unknown Completed [facility] Influenza Virus Vaccine Quad IM 3+ YRS Unknown Completed [facility] TDAP Unknown Completed [facility] HPV9 Unknown Completed [facility] Influenza Virus Vaccine Quad IM 3+ YRS Unknown Completed [facility] TDAP Unknown Completed [facility] HPV9 Unknown Completed [facility] Influenza Virus Vaccine Quad IM 3+ YRS Unknown Completed [facility] TDAP Unknown Completed [facility] HPV9 Unknown Completed [facility] Influenza Virus Vaccine Quad IM 3+ YRS Unknown Completed [facility] TDAP Unknown Completed [facility] HPV9 Unknown Completed [facility] Influenza Virus Vaccine Quad IM 3+ YRS Unknown Completed [facility] HPV9 Unknown Completed [facility] TDAP Unknown Completed [facility] Influenza Virus Vaccine Quad IM 3+ YRS Unknown Completed [facility] TDAP Unknown [facility]pleted [facility] HPV9 Unknown Completed [facility] Influenza Virus Vacc[facility] Quad IM 3+ YRS Unknown Completed [facility] HPV9 Unknown Completed [facility] Influenza Virus Vaccine Quad IM 3+ YRS Unknown Completed [facility] TDAP Unknown Completed [facility] HPV9 Unknown Completed [facility] TDAP Unknown Completed [facility] Influenza Virus Vaccine Quad IM 3+ YRS Unknown Completed [facility] TDAP Unknown Completed [facility] HPV9 Unknown Completed [facility] Influenza Virus Vaccine Quad IM 3+ YRS Unknown Completed [facility] HPV9 Unknown Completed [facility] TDAP Unknown Completed [facility] Influenza Virus Vaccine Quad IM 3+ YRS Unknown Completed [facility] TDAP Unknown Completed [facility] HPV9 Unknown Completed [facility] Influenza Virus Vaccine Quad IM 3+ YRS Unknown Completed [facility] [facility] Completed [facility] HPV9 Unknown Completed [facility] Influenza Virus Vaccine Quad IM 3+ YRS Unknown Completed [facility] TDAP Unknown Completed [facility] HPV9 Unknown Completed [facility] Influenza Virus Vaccine Quad IM 3+ YRS Unknown Completed [facility] TDAP Unknown Completed [facility] HPV9 Unknown Completed [facility] Influenza Virus Vaccine Quad IM 3+ YRS Unknown Completed [facility] TDAP Unknown Completed [facility] HPV9 Unknown Completed [facility] Influenza Virus Vaccine Quad IM 3+ YRS Unknown Completed [facility] TDAP Unknown Completed [facility] HPV9 Unknown Completed [facility] Influenza Virus Vaccine Quad IM 3+ YRS Unknown Completed [facility] TDAP Unknown Completed [facility] HPV9 Unknown Completed [facility] Influenza Virus Vaccine Quad IM 3+ YRS Unknown Completed [facility] TDAP Unknown Completed [facility] HPV9 Unknown Completed [facility] Influenza Virus Vaccine Quad IM 3+ YRS Unknown Completed [facility] TDAP Unknown Completed [facility] HPV9 Unknown Completed [facility] Influenza Virus Vaccine Quad IM 3+ YRS Unknown Completed [facility] TDAP Unknown Completed [facility] HPV9 Unknown Completed [facility] Influenza Virus Vaccine Quad IM 3+ YRS Unknown Completed [facility] TDAP Unknown Completed [facility] HPV9 Unknown Completed [facility] Influenza Virus Vaccine Quad IM 3+ YRS Unknown Completed [facility] TDAP Unknown Completed [facility] HPV9 Unknown Completed [facility] Influenza Virus Vaccine Quad IM 3+ YRS Unknown Completed [facility] TDAP Unknown Completed [facility] HPV9 Unknown Completed [facility] Influenza Virus Vaccine Quad IM 3+ YRS Unknown Completed [facility] HPV9 Unknown Completed [facility] TDAP Unknown Completed [facility] Influenza Virus Vaccine Quad IM 3+ YRS Unknown Completed [facility] TDAP Unknown Completed [facility] HPV9 Unknown Completed [facility] Influenza Virus Vaccine Quad IM 3+ YRS Unknown Completed [facility] HPV9 Unknown Completed [facility] Influenza Virus Vaccine Quad IM 3+ YRS Unknown Completed [facility] TDAP Unknown Completed [facility] HPV9 Unknown Completed [facility] Influenza Virus Vaccine Quad IM 3+ YRS Unknown Completed [facility] TDAP Unknown Completed [facility] HPV9 Unknown Completed [facility] TDAP Unknown Completed [facility] Influenza Virus Vaccine Quad IM 3+ YRS Unknown Completed [facility] HPV9 Unknown Completed [facility] TDAP Unknown Completed [facility] Influenza Virus Vaccine Quad IM 3+ YRS Unknown Completed [facility] TDAP Unknown Completed [facility] HPV9 Unknown Completed [facility] Influenza Virus Vaccine Quad IM 3+ YRS Unknown Completed [facility] TDAP Unknown Completed [facility] HPV9 Unknown Completed [facility] Influenza Virus Vaccine Quad IM 3+ YRS Unknown Completed [facility] TDAP Unknown Completed [facility] HPV9 Unknown Completed [facility] Influenza Virus Vaccine Quad IM 3+ YRS Unknown Completed [facility] TDAP Unknown Completed [facility] HPV9 Unknown Completed [facility] Influenza Virus Vaccine Quad IM 3+ YRS Unknown Completed [facility] HPV9 Unknown Completed [facility] TDAP Unknown Completed [facility] Influenza Virus Vaccine Quad IM 3+ YRS Unknown Completed [facility] TDAP Unknown Completed [facility] HPV9 Unknown Completed [facility] Influenza Virus Vaccine Quad IM 3+ YRS Unknown Completed [facility] TDAP Unknown Completed [facility] HPV9 Unknown Completed [facility] Influenza Virus Vaccine Quad IM 3+ YRS Unknown Completed [facility] HPV9 Unknown Completed [facility] TDAP Unknown Completed [facility] Influenza Virus Vaccine Quad IM 3+ YRS Unknown Completed [facility] TDAP Unknown Completed [facility] HPV9 Unknown Completed [facility] Influenza Virus Vaccine Quad IM 3+ YRS Unknown Completed [facility] TDAP Unknown Completed [facility] HPV9 Unknown Completed [facility] Influenza Virus Vaccine Quad IM 3+ YRS Unknown Completed [facility] HPV9 Unknown Completed [facility] TDAP Unknown Completed [facility] Influenza Virus Vaccine Quad IM 3+ YRS Unknown Completed [facility] TDAP Unknown Completed [facility] HPV9 Unknown Completed [facility] Influenza Virus Vaccine Quad IM 3+ YRS Unknown Completed [facility] TDAP Unknown Completed [facility] HPV9 Unknown Completed [facility] Influenza Virus Vaccine Quad IM 3+ YRS Unknown Completed [facility] TDAP Unknown Completed [facility] HPV9 Unknown Completed [facility] Influenza Virus Vaccine Quad IM 3+ YRS Unknown Completed [facility] TDAP Unknown Completed [facility] HPV9 Unknown Completed [facility] Influenza Virus Vaccine Quad IM 3+ YRS Unknown Completed [facility] TDAP Unknown Completed [facility] HPV9 Unknown Completed [facility] Influenza Virus Vaccine Quad IM 3+ YRS Unknown Completed [facility] TDAP Unknown Completed [facility] HPV9 Unknown Completed [facility] Influenza Virus Vaccine Quad IM 3+ YRS Unknown Completed [facility] TDAP Unknown Completed [facility] HPV9 Unknown Completed [facility] Influenza Virus Vaccine Quad IM 3+ YRS Unknown Completed [facility] TDAP Unknown Completed [facility] HPV9 Unknown Completed [facility] Influenza Virus Vaccine Quad IM 3+ YRS Unknown Completed [facility] TDAP Unknown Completed [facility] HPV9 Unknown Completed [facility] Influenza Virus Vaccine Quad IM 3+ YRS Unknown Completed [facility] TDAP Unknown Completed [facility] HPV9 Unknown Completed [facility] Influenza Virus Vaccine Quad IM 3+ YRS Unknown Completed [facility] TDAP Unknown Completed [facility] HPV9 Unknown Completed [facility] Influenza Virus Vaccine Quad IM 3+ YRS Unknown Completed [facility] TDAP Unknown Completed [facility] HPV9 Unknown Completed [facility] Influenza Virus Vaccine Quad IM 3+ YRS Unknown Completed [facility] TDAP Unknown Completed [facility] HPV9 Unknown Completed [facility] Influenza Virus Vaccine Quad IM 3+ YRS Unknown Completed [facility] TDAP Unknown Completed [facility] HPV9 Unknown Completed [facility] Influenza Virus Vaccine Quad IM 3+ YRS Unknown Completed [facility] TDAP Unknown Completed [facility] HPV9 Unknown Completed [facility] Influenza Virus Vaccine Quad IM 3+ YRS Unknown Completed [facility] TDAP Unknown Completed [facility] HPV9 Unknown Completed [facility] Influenza Virus Vaccine Quad IM 3+ YRS Unknown Completed [facility] TDAP Unknown Completed [facility] HPV9 Unknown Completed [facility] Influenza Virus Vaccine Quad IM 3+ YRS Unknown Completed [facility] TDAP Unknown Completed [facility] HPV9 Unknown Completed [facility] Influenza Virus Vaccine Quad IM 3+ YRS Unknown Completed [facility] TDAP Unknown Completed [facility] HPV9 Unknown Completed [facility] Influenza Virus Vaccine Quad IM 3+ YRS Unknown Completed [facility] TDAP Unknown Completed [facility] HPV9 Unknown Completed [facility] Influenza Virus Vaccine Quad IM 3+ YRS Unknown Completed [facility] TDAP Unknown Completed [facility] HPV9 Unknown Completed [facility] Vital Signs Vital Name Observation Time Observation Value Comments S ource Systolic blood pressure 2024-07-06 16:55:00 103 mm[Hg] [facility] Diastolic blood pressure 2024-07-06 16:55:00 71 mm[Hg] [facility] Heart rate 2024-07-06 16:55:00 79 /min [facility] Respiratory rate 2024-07-06 16:55:00 16 /min [facility] Body height 2024-07-06 16:55:00 170.2 cm [facility] Body weight 2024-07-06 16:55:00 94.348 kg [facility] BMI 2024-07-06 16:55:00 32.58 kg/m2 [facility] Oxygen saturation in Arterial blood by Pulse oximetry 2024-07-06 16:55:00 99 /min [facility] Systolic blood pressure 2024-05-25 19:29:00 109 mm[Hg] [facility] Diastolic blood pressure 2024-05-25 19:29:00 66 mm[Hg] [facility] Heart rate 2024-05-25 19:29:00 77 /min [facility] Body temperature 2024-05-25 19:29:00 36.22 Sandhya [facility] Body height 2024-05-25 19:29:00 170.2 cm [facility] Body weight 2024-05-25 19:29:00 95.255 kg [facility] BMI 2024-05-25 19:29:00 32.89 kg/m2 [facility] Oxygen saturation in Arterial blood by Pulse oximetry 2024-05-25 19:29:00 100 /min [facility] Body height 2024-05-09 23:01:00 170.2 cm [facility] Body weight 2024-05-09 23:01:00 97.523 kg [facility] BMI 2024-05-09 23:01:00 33.67 kg/m2 [facility] Systolic blood pressure 2024-05-09 23:00:00 114 mm[Hg] [facility] Diastolic blood pressure 2024-05-09 23:00:00 70 mm[Hg] [facility] Heart rate 2024-05-09 23:00:00 66 /min [facility] Body temperature 2024-05-09 23:00:00 36.44 Sandhya [facility] Respiratory rate 2024-05-09 23:00:00 18 /min [facility] Oxygen saturation in Arterial blood by Pulse oximetry 2024-05-09 23:00:00 100 /min [facility] Systolic blood pressure 2024-05-09 20:40:00 105 mm[Hg] [facility] Diastolic blood pressure 2024-05-09 20:40:00 73 mm[Hg] [facility] Heart rate 2024-05-09 20:40:00 65 /min [facility] Respiratory rate 2024-05-09 20:40:00 13 /min [facility] Oxygen saturation in Arterial blood by Pulse oximetry 2024-05-09 20:40:00 96 /min [facility] Body temperature 2024-05-09 17:28:00 36.28 Sandhya [facility] Body height 2024-05-09 17:15:00 170.2 cm [facility] Body weight 2024-05-09 17:15:00 97.523 kg [facility] BMI 2024-05-09 17:15:00 33.67 kg/m2 [facility] Systolic blood pressure 2024-05-09 17:28:00 105 mm[Hg] [facility] Diastolic blood pressure 2024-05-09 17:28:00 74 mm[Hg] [facility] Heart rate 2024-05-09 17:28:00 81 /min [facility] Body temperature 2024-05-09 17:28:00 36.28 Sandhya [facility] Respiratory rate 2024-05-09 17:28:00 22 /min [facility] Oxygen saturation in Arterial blood by Pulse oximetry 2024-05-09 17:28:00 95 /min [facility] Body height 2024-05-09 17:15:00 170.2 cm [facility] Body weight 2024-05-09 17:15:00 97.523 kg [facility] BMI 2024-05-09 17:15:00 33.67 kg/m2 [facility] Systolic blood pressure 2024-04-13 14:21:00 102 mm[Hg] [facility] Diastolic blood pressure 2024-04-13 14:21:00 72 mm[Hg] [facility] Heart rate 2024-04-13 14:21:00 70 /min [facility] Respiratory rate 2024-04-13 14:21:00 18 /min [facility] Body height 2024-04-13 14:21:00 170.2 cm [facility] Body weight 2024-04-13 14:21:00 98.839 kg [facility] BMI 2024-04-13 14:21:00 34.13 kg/m2 [facility] Oxygen saturation in Arterial blood by Pulse oximetry 2024-04-13 14:21:00 100 /min [facility] Systolic blood pressure 2024-03-01 15:01:00 115 mm[Hg] [facility] Diastolic blood pressure 2024-03-01 15:01:00 79 mm[Hg] [facility] Heart rate 2024-03-01 15:01:00 84 /min [facility] Body temperature 2024-03-01 15:01:00 36.11 Sandhya [facility] Body height 2024-03-01 15:01:00 170.2 cm [facility] 2024-03-01 15:01:00 100.245 kg [facility] BMI 2024-03-01 15:01:00 34.61 kg/m2 [facility] Oxygen saturation in Arterial blood by Pulse oximetry 2024-03-01 15:01:00 100 /min [facility] Systolic blood pressure 2024-02-17 21:26:00 106 mm[Hg] [facility] Diastolic blood pressure 2024-02-17 21:26:00 73 mm[Hg] [facility] Heart rate 2024-02-17 21:26:00 86 /min [facility] Body temperature 2024-02-17 21:26:00 36.28 Sandhya [facility] Respiratory rate 2024-02-17 21:26:00 18 /min [facility] Body height 2024-02-17 21:26:00 167.6 cm [facility] Body weight 2024-02-17 21:26:00 97.693 kg [facility] BMI 2024-02-17 21:26:00 34.76 kg/m2 [facility] Oxygen saturation in Arterial blood by Pulse oximetry 2024-02-17 21:26:00 99 /min [facility] Systolic blood pressure 2024-01-20 13:35:00 101 mm[Hg] [facility] Diastolic blood pressure 2024-01-20 13:35:00 69 mm[Hg] [facility] Heart rate 2024-01-20 13:35:00 65 /[facility] Body temperature 2024-01-20 13:35:00 36.94 Sandhya [facility] Body height 2024-01-20 13:35:00 170.2 cm [facility] Body weight 2024-01-20 13:35:00 98.431 kg [facility] BMI 2024-01-20 13:35:00 33.99 kg/m2 [facility] Oxygen saturation in Arterial blood by Pulse oximetry 2024-01-20 13:35:00 99 /min [facility] Systolic blood pressure 2024-01-18 20:48:00 125 mm[Hg] [facility] Diastolic blood pressure 2024-01-18 20:48:00 86 mm[Hg] [facility] Heart rate 2024-01-18 20:48:00 75 /min [facility] Body height 2024-01-18 20:48:00 170.2 cm [facility] Body weight 2024-01-18 20:48:00 97.659 kg [facility] BMI 2024-01-18 20:48:00 33.72 kg/m2 [facility] Oxygen saturation in Arterial blood by Pulse oximetry 2024-01-18 20:48:00 97 /min [facility] Systolic blood pressure 2023-11-16 17:12:00 112 mm[Hg] [facility] Diastolic blood pressure 2023-11-16 17:12:00 76 mm[Hg] [facility] Heart rate 2023-11-16 17:12:00 64 /min [facility] Body height 2023-11-16 17:12:00 170.2 cm [facility] Body weight 2023-11-16 17:12:00 100.064 kg [facility] BMI 2023-11-16 17:12:00 34.55 kg/m2 [facility] Oxygen saturation in Arterial blood by Pulse oximetry 2023-11-16 17:12:00 99 /min [facility] Systolic blood pressure 2023-11-16 14:31:00 130 mm[Hg] [facility] Diastolic blood pressure 2023-11-16 14:31:00 86 mm[Hg] [facility] Heart rate 2023-11-16 14:31:00 72 /min [facility] Body temperature 2023-11-16 14:31:00 36.5 Sandhya [facility] Respiratory rate 2023-11-16 14:31:00 18 /min [facility] Body height 2023-11-16 14:31:00 170.2 cm [facility] Body weight 2023-11-16 14:31:00 100.245 kg [facility] BMI 2023-11-16 14:31:00 34.61 kg/m2 [facility] Oxygen saturation in Arterial blood by Pulse oximetry 2023-11-16 14:31:00 100 /min [facility] Systolic blood pressure 2023-10-27 05:54:00 115 mm[Hg] [facility] Diastolic blood pressure 2023-10-27 05:54:00 78 mm[Hg] [facility] Heart rate 2023-10-27 05:54:00 70 /min [facility] Respiratory rate 2023-10-27 05:54:00 16 /min [facility] Oxygen saturation in Arterial blood by Pulse oximetry 2023-10-27 05:54:00 99 /min [facility] Body temperature 2023-10-27 03:55:00 37.11 Sandhya [facility] Body height 2023-10-27 03:55:00 170.2 cm [facility] Body weight 2023-10-27 03:55:00 96.163 kg [facility] BMI 2023-10-27 03:55:00 33.20 kg/m2 [facility] Systolic blood pressure 2023-08-25 19:55:00 105 mm[Hg] [facility] Diastolic blood pressure 2023-08-25 19:55:00 68 mm[Hg] [facility] Heart rate 2023-08-25 19:55:00 80 /min [facility] Body temperature 2023-08-25 19:55:00 36.33 Sandhya [facility] Body weight 2023-08-25 19:55:00 99.882 kg [facility] BMI 2023-08-25 19:55:00 34.49 kg/m2 [facility] Systolic blood pressure 2023-08-20 19:47:00 131 mm[Hg] [facility] Diastolic blood pressure 2023-08-20 19:47:00 75 mm[Hg] [facility] Heart rate 2023-08-20 19:47:00 68 /min [facility] Body temperature 2023-08-20 19:47:00 36.56 Sandhya [facility] Respiratory rate 2023-08-20 19:47:00 17 /min [facility] Body height 2023-08-20 19:47:00 170.2 cm [facility] Body weight 2023-08-20 19:47:00 96.344 kg [facility] BMI 2023-08-20 19:47:00 33.27 kg/m2 [facility] Systolic blood pressure 2023-08-16 15:00:00 110 mm[Hg] [facility] Diastolic blood pressure 2023-08-16 15:00:00 80 mm[Hg] [facility] Heart rate 2023-08-16 15:00:00 65 /min [facility] Body height 2023-08-16 15:00:00 170.2 cm [facility] Body weight 2023-08-16 15:00:00 97.796 kg [facility] BMI 2023-08-16 15:00:00 33.77 kg/m2 [facility] Oxygen saturation in Arterial blood by Pulse oximetry 2023-08-16 15:00:00 100 /min [facility] Systolic blood pressure 2023-08-13 23:09:23 121 mm[Hg] [facility] Diastolic blood pressure 2023-08-13 23:09:23 76 mm[Hg] [facility] Heart rate 2023-08-13 23:09:23 74 /min [facility] Respiratory rate 2023-08-13 23:09:23 18 /min [facility] Oxygen saturation in Arterial blood by Pulse oximetry 2023-08-13 23:09:23 98 /min [facility] Body temperature 2023-08-13 20:34:00 36.89 Sandhya [facility] Body height 2023-08-13 20:34:00 170.2 cm [facility] Body weight 2023-08-13 20:34:00 96.616 kg [facility] BMI 2023-08-13 20:34:00 33.36 kg/m2 [facility] Systolic blood pressure 2023-07-29 20:07:00 95 mm[Hg] [facility] Diastolic blood pressure 2023-07-29 20:07:00 67 mm[Hg] [facility] Heart rate 2023-07-29 20:07:00 105 /min [facility] Body temperature 2023-07-29 20:07:00 36.28 Sandhya [facility] Body height 2023-07-29 20:07:00 170.2 cm [facility] Body weight 2023-07-29 20:07:00 96.48 kg [facility] BMI 2023-07-29 20:07:00 33.31 kg/m2 [facility] Systolic blood pressure 2023-07-14 21:36:00 95 mm[Hg] [facility] Diastolic blood pressure 2023-07-14 21:36:00 71 mm[Hg] [facility] Heart rate 2023-07-14 21:36:00 76 /min [facility] Body temperature 2023-07-14 21:36:00 36.33 Sandhya [facility] Respiratory rate 2023-07-14 21:36:00 20 /min [facility] Body height 2023-07-14 21:36:00 170.2 cm [facility] Body weight 2023-07-14 21:36:00 96.163 kg [facility] BMI 2023-07-14 21:36:00 33.20 kg/m2 [facility] Oxygen saturation in Arterial blood by Pulse oximetry 2023-07-14 21:36:00 98 /min [facility] Systolic blood pressure 2023-07-07 21:03:00 101 mm[Hg] [facility] Diastolic blood pressure 2023-07-07 21:03:00 67 mm[Hg] [facility] Heart rate 2023-07-07 21:03:00 76 /min [facility] Body temperature 2023-07-07 21:03:00 36 Sandhya [facility] Body height 2023-07-07 21:03:00 170.2 cm [facility] Body weight 2023-07-07 21:03:00 96.752 kg [facility] BMI 2023-07-07 21:03:00 33.41 kg/m2 [facility] Systolic blood pressure 2023-07-01 21:39:00 116 mm[Hg] [facility] Diastolic blood pressure 2023-07-01 21:39:00 73 mm[Hg] [facility] Heart rate 2023-07-01 21:39:00 64 /min [facility] Body temperature 2023-07-01 21:39:00 36.17 Sandhya [facility] Respiratory rate 2023-07-01 21:39:00 18 /min [facility] Body height 2023-07-01 21:39:00 170.2 cm [facility] Body weight 2023-07-01 21:39:00 95.397 kg [facility] BMI 2023-07-01 21:39:00 32.94 kg/m2 [facility] Systolic blood pressure 2023-06-23 19:21:00 101 mm[Hg] [facility] Diastolic blood pressure 2023-06-23 19:21:00 70 mm[Hg] [facility] Heart rate 2023-06-23 19:21:00 73 /min [facility] Body temperature 2023-06-23 19:21:00 36.17 Sandhya [facility] Body height 2023-06-23 19:21:00 170.2 cm [facility] 2023-06-23 19:21:00 95.255 kg [facility] BMI 2023-06-23 19:21:00 32.89 kg/m2 [facility] Systolic blood pressure 2023-06-22 14:24:00 120 mm[Hg] [facility] Diastolic blood pressure 2023-06-22 14:24:00 83 mm[Hg] [facility] Heart rate 2023-06-22 14:24:00 67 /min [facility] Respiratory rate 2023-06-22 14:24:00 12 /min [facility] Body height 2023-06-22 14:24:00 170.2 [facility] [facility] Body weight 2023-06-22 14:24:00 96.344 kg [facility] BMI 2023-06-22 14:24:00 33.27 kg/m2 [facility] Oxygen saturation in Arterial blood by Pulse oximetry 2023-06-22 14:24:00 100 /min [facility] Heart rate 2023-06-22 01:45:00 84 /min [facility] Oxygen saturation in Arterial blood by Pulse oximetry 2023-06-22 01:45:00 98 /min [facility] Systolic blood pressure 2023-06-22 01:00:00 119 mm[Hg] [facility] Diastolic blood pressure 2023-06-22 01:00:00 85 mm[Hg] [facility] Respiratory rate 2023-06-22 01:00:00 16 /min [facility] Body height 2023-06-22 00:11:00 170.2 cm [facility] Body weight 2023-06-22 00:11:00 95.255 [address] [facility] BMI 2023-06-22 00:11:00 32.89 kg/m2 [facility] Systolic blood pressure 2023-06-17 02:18:00 120 mm[Hg] [facility] Diastolic blood pressure 2023-06-17 02:18:00 82 mm[Hg] [facility] Heart rate 2023-06-17 02:18:00 90 /min [facility] Body temperature 2023-06-17 02:18:00 37 Sandhya [facility] Respiratory rate 2023-06-17 02:18:00 16 /min [facility] Body height 2023-06-17 02:18:00 170.2 cm [facility] Body weight 2023-06-17 02:18:00 94.938 kg [facility] BMI 2023-06-17 02:18:00 32.78 kg/m2 [facility] Oxygen saturation in Arterial blood by Pulse oximetry 2023-06-17 02:18:00 98 /min [facility] Systolic blood pressure 2023-05-26 20:20:00 121 mm[Hg] [facility] Diastolic blood pressure 2023-05-26 20:20:00 85 mm[Hg] [facility] Heart rate 2023-05-26 20:20:00 71 /min [facility] Body temperature 2023-05-26 20:20:00 36.89 Sandhya [facility] Respiratory rate 2023-05-26 20:20:00 18 /min [facility] Body height 2023-05-26 20:20:00 170.2 cm [facility] Body weight 2023-05-26 20:20:00 96.253 kg [facility] BMI 2023-05-26 20:20:00 33.24 kg/m2 [facility] Oxygen saturation in Arterial blood by Pulse oximetry 2023-05-26 20:20:00 100 /min [facility] Systolic blood pressure 2023-05-10 21:05:00 123 mm[Hg] [facility] Diastolic blood pressure 2023-05-10 21:05:00 80 mm[Hg] [facility] Heart rate 2023-05-10 21:05:00 72 /min [facility] Body temperature 2023-05-10 21:05:00 36.56 Sandhya [facility] Body height 2023-05-10 21:05:00 170.2 cm [facility] Body weight 2023-05-10 21:05:00 95.391 kg [facility] BMI 2023-05-10 21:05:00 32.94 kg/m2 [facility] Systolic blood pressure 2023-05-06 17:28:00 126 mm[Hg] [facility] Diastolic blood pressure 2023-05-06 17:28:00 84 mm[Hg] [facility] Heart rate 2023-05-06 17:28:00 70 /min [facility] Respiratory rate 2023-05-06 17:28:00 20 /min [facility] Body height 2023-05-06 17:28:00 170.2 cm [facility] Body weight 2023-05-06 17:28:00 95.165 kg [facility] BMI 2023-05-06 17:28:00 32.86 kg/m2 [facility] Oxygen saturation in Arterial blood by Pulse oximetry 2023-05-06 17:28:00 97 /min [facility] Systolic blood pressure 2023-05-01 17:29:00 111 mm[Hg] [facility] Diastolic blood pressure 2023-05-01 17:29:00 66 mm[Hg] [facility] Heart rate 2023-05-01 17:29:00 69 /min [facility] Body temperature 2023-05-01 17:29:00 36.67 Sandhya [facility] Respiratory rate 2023-05-01 17:29:00 18 /min [facility] Oxygen saturation in Arterial blood by Pulse oximetry 2023-05-01 17:29:00 99 /min [facility] Body height 2023-04-26 11:43:00 170.2 cm [facility] Body weight 2023-04-26 11:43:00 93.6 kg [facility] BMI 2023-04-26 11:43:00 32.32 kg/m2 [facility] Systolic blood pressure 2023-04-23 21:50:00 112 mm[Hg] [facility] Diastolic blood pressure 2023-04-23 21:50:00 76 mm[Hg] [facility] Heart rate 2023-04-23 21:50:00 71 /min [facility] Respiratory rate 2023-04-23 21:50:00 16 /min [facility] Body height 2023-04-23 21:50:00 170.2 cm [facility] Body weight 2023-04-23 21:50:00 91.627 kg [facility] BMI 2023-04-23 21:50:00 31.64 kg/m2 [facility] Oxygen saturation in Arterial blood by Pulse oximetry 2023-04-23 21:50:00 99 /min [facility] Systolic blood pressure 2023-04-09 13:51:00 116 mm[Hg] [facility] Diastolic blood pressure 2023-04-09 13:51:00 79 mm[Hg] [facility] Heart rate 2023-04-09 13:51:00 81 /min [facility] Body temperature 2023-04-09 13:51:00 36.5 Sandhya [facility] Respiratory rate 2023-04-09 13:51:00 18 /min [facility] Body height 2023-04-09 13:51:00 170.2 cm [facility] Body weight 2023-04-09 13:51:00 91.082 kg [facility] BMI 2023-04-09 13:51:00 31.45 kg/m2 [facility] Oxygen saturation in Arterial blood by Pulse oximetry 2023-04-09 13:51:00 97 /min [facility] Systolic blood pressure 2023-04-09 13:51:00 116 mm[Hg] [facility] Diastolic blood pressure 2023-04-09 13:51:00 79 mm[Hg] [facility] Heart rate 2023-04-09 13:51:00 81 /min [facility] Body temperature 2023-04-09 13:51:00 36.5 Sandhya [facility] Respiratory rate 2023-04-09 13:51:00 18 /min [facility] Body height 2023-04-09 13:51:00 170.2 cm [facility] Body weight 2023-04-09 13:51:00 91.082 kg [facility] BMI 2023-04-09 13:51:00 31.45 kg/m2 [facility] Oxygen saturation in Arterial blood by Pulse oximetry 2023-04-09 13:51:00 97 /min [facility] Systolic blood pressure 2023-04-07 18:48:00 111 mm[Hg] [facility] Diastolic blood pressure 2023-04-07 18:48:00 74 mm[Hg] [facility] Heart rate 2023-04-07 18:48:00 87 /min [facility]ive [facility] Body temperature 2023-04-07 18:48:00 36.67 Sandhya [facility] Respiratory rate 2023-04-07 18:48:00 18 /min [facility] Body height 2023-04-07 18:48:00 170.2 cm [facility] Body weight 2023-04-07 18:48:00 89.812 kg [facility] BMI 2023-04-07 18:48:00 31.01 kg/m2 [facility] Oxygen saturation in Arterial blood by Pulse oximetry 2023-04-07 18:48:00 100 /min [facility] Systolic blood pressure 2023-04-05 18:56:00 124 mm[Hg] [facility] Diastolic blood pressure 2023-04-05 18:56:00 79 mm[Hg] [facility] Heart rate 2023-04-05 18:56:00 81 /min [facility] Body temperature 2023-04-05 18:56:00 35.83 Sandhya [facility] Respiratory rate 2023-04-05 18:56:00 20 /min [facility] Body height 2023-04-05 18:56:00 170.2 cm [facility] Body weight 2023-04-05 18:56:00 90.855 kg [facility] BMI 2023-04-05 18:56:00 31.37 kg/m2 [facility] Systolic blood pressure 2023-01-26 04:00:00 119 mm[Hg] [facility] Diastolic blood pressure 2023-01-26 04:00:00 74 mm[Hg] [facility] Heart rate 2023-01-26 04:00:00 75 /min Un[facility] Respiratory rate 2023-01-26 04:00:00 12 /min [facility] Oxygen saturation in Arterial blood by Pulse oximetry 2023-01-26 04:00:00 99 /min [facility] Body temperature 2023-01-26 01:59:00 37.28 Sandhya [facility] Body height 2023-01-26 01:59:00 170.2 cm [facility] Body weight 2023-01-26 01:59:00 90.719 kg [facility] BMI 2023-01-26 01:59:00 31.32 kg/m2 [facility] Systolic blood pressure 2023-01-18 19:36:00 122 mm[Hg] [facility] Diastolic blood pressure 2023-01-18 19:36:00 83 mm[Hg] [facility] Heart rate 2023-01-18 19:36:00 75 /min Unive [facility] Body temperature 2023-01-18 19:36:00 36.83 Sandhya [facility] Respiratory rate 2023-01-18 19:36:00 16 /min [facility] Body height 2023-01-18 19:36:00 170.2 cm [facility] Body weight 2023-01-18 19:36:00 91.581 kg [facility] BMI 2023-01-18 19:36:00 31.62 kg/m2 [facility] Oxygen saturation in Arterial blood by Pulse oximetry 2023-01-18 19:36:00 99 /min [facility] Systolic blood pressure 2023-01-18 15:43:00 113 mm[Hg] [facility] Diastolic blood pressure 2023-01-18 15:43:00 73 mm[Hg] [facility] Heart rate 2023-01-18 15:43:00 75 /min Unive [facility] Body temperature 2023-01-18 15:43:00 35.67 Sandhya [facility] Respiratory rate 2023-01-18 15:43:00 17 /min [facility] Body height 2023-01-18 15:43:00 170.2 cm [facility] Body weight 2023-01-18 15:43:00 90.538 kg [facility] BMI 2023-01-18 15:43:00 31.26 kg/m2 [facility] Systolic blood pressure 2023-01-09 18:15:00 86 mm[Hg] [facility] Diastolic blood pressure 2023-01-09 18:15:00 50 mm[Hg] [facility] Heart rate 2023-01-09 18:15:00 77 /min Unive [facility] Body temperature 2023-01-09 18:15:00 36.83 Sandhya [facility] Respiratory rate 2023-01-09 18:15:00 18 /min [facility] Oxygen saturation in Arterial blood by Pulse oximetry 2023-01-09 18:15:00 99 /min [facility] Body height 2023-01-09 05:47:00 170.2 cm [facility] Body weight 2023-01-09 05:47:00 90.719 kg [facility] BMI 2023-01-09 05:47:00 31.32 kg/m2 [facility] Systolic blood pressure 2023-01-08 22:52:00 112 mm[Hg] [facility] Diastolic blood pressure 2023-01-08 22:52:00 65 mm[Hg] [facility] Heart rate 2023-01-08 22:52:00 107 /min [facility] Body temperature 2023-01-08 22:52:00 36.72 Sandhya [facility] Respiratory rate 2023-01-08 22:52:00 18 /min [facility] Oxygen saturation in Arterial blood by Pulse oximetry 2023-01-08 22:52:00 100 /min [facility] Body height 2023-01-08 15:28:00 170.2 cm [facility] Body weight 2023-01-08 15:28:00 90.719 kg [facility] BMI 2023-01-08 15:28:00 31.32 kg/m2 [facility] Systolic blood pressure 2023-01-04 14:17:00 110 mm[Hg] [facility] Diastolic blood pressure 2023-01-04 14:17:00 71 mm[Hg] [facility] Heart rate 2023-01-04 14:17:00 73 /min Unive [facility] Body temperature 2023-01-04 14:17:00 36.39 Sandhya [facility] Respiratory rate 2023-01-04 14:17:00 20 /min [facility] Body height 2023-01-04 14:17:00 170.2 cm [facility] Body weight 2023-01-04 14:17:00 90.81 kg [facility] BMI 2023-01-04 14:17:00 31.36 kg/m2 [facility] Systolic blood pressure 2023-01-02 05:49:00 112 mm[Hg] [facility] Diastolic blood pressure 2023-01-02 05:49:00 72 mm[Hg] [facility] Heart rate 2023-01-02 05:49:00 77 /min Unive [facility] Respiratory rate 2023-01-02 05:49:00 16 /min [facility] Oxygen saturation in Arterial blood by Pulse oximetry 2023-01-02 05:49:00 100 /min [facility] Body temperature 2023-01-02 05:34:00 36.61 Sandhya [facility] Body height 2023-01-02 03:54:00 162.6 cm [facility] Body weight 2023-01-02 03:54:00 89.812 kg [facility] BMI 2023-01-02 03:54:00 33.99 kg/m2 [facility] Systolic blood pressure 2022-12-21 15:58:00 110 mm[Hg] [facility] Diastolic blood pressure 2022-12-21 15:58:00 68 mm[Hg] [facility] Heart rate 2022-12-21 15:58:00 75 /min Unive [facility] Body temperature 2022-12-21 15:58:00 36.39 Sandhya [facility] Respiratory rate 2022-12-21 15:58:00 18 /min [facility] Body height 2022-12-21 15:58:00 170.2 cm [facility] Body weight 2022-12-21 15:58:00 89.54 kg [facility] BMI 2022-12-21 15:58:00 30.92 kg/m2 [facility] Oxygen saturation in Arterial blood by Pulse oximetry 2022-12-21 15:58:00 100 /min [facility] Systolic blood pressure 2022-12-11 15:46:00 107 mm[Hg] [facility] Diastolic blood pressure 2022-12-11 15:46:00 64 mm[Hg] [facility] Heart rate 2022-12-11 15:46:00 74 /min Unive [facility] Body temperature 2022-12-11 15:46:00 35.89 Sandhya [facility] Respiratory rate 2022-12-11 15:46:00 18 /min [facility] Body height 2022-12-11 15:46:00 170.2 cm [facility] Body weight 2022-12-11 15:46:00 88.225 kg [facility] BMI 2022-12-11 15:46:00 30.46 kg/m2 [facility] Systolic blood pressure 2022-12-09 16:23:00 119 mm[Hg] [facility] Diastolic blood pressure 2022-12-09 16:23:00 70 mm[Hg] [facility] Heart rate 2022-12-09 16:23:00 65 /min Unive [facility] Body temperature 2022-12-09 16:23:00 36.83 Sandhya [facility] Respiratory rate 2022-12-09 16:23:00 18 /min [facility] Body height 2022-12-09 16:23:00 170.2 cm [facility] Body weight 2022-12-09 16:23:00 89.982 kg [facility] BMI 2022-12-09 16:23:00 31.07 kg/m2 [facility] Systolic blood pressure 2022-11-12 20:14:00 128 mm[Hg] [facility] Diastolic blood pressure 2022-11-12 20:14:00 75 mm[Hg] [facility] Heart rate 2022-11-12 20:14:00 67 /min Unive [facility] Body temperature 2022-11-12 20:14:00 36.67 Sandhya [facility] Respiratory rate 2022-11-12 20:14:00 20 /min [facility] Body height 2022-11-12 20:14:00 170.2 cm [facility] Body weight 2022-11-12 20:14:00 88.962 kg [facility] BMI 2022-11-12 20:14:00 30.72 kg/m2 [facility] Systolic blood pressure 2022-10-22 20:14:00 112 mm[Hg] [facility] Diastolic blood pressure 2022-10-22 20:14:00 74 mm[Hg] [facility] Heart rate 2022-10-22 20:14:00 72 /min Unive [facility] Body temperature 2022-10-22 20:14:00 36.67 Sandhya [facility] Respiratory rate 2022-10-22 20:14:00 18 /min [facility] Body weight 2022-10-22 20:14:00 88.451 kg [facility] BMI 2022-10-22 20:14:00 30.54 kg/m2 [facility] Systolic blood pressure 2022-09-28 13:01:00 104 mm[Hg] [facility] Diastolic blood pressure 2022-09-28 13:01:00 63 mm[Hg] [facility] Heart rate 2022-09-28 13:01:00 75 /min Unive [facility] Body temperature 2022-09-28 13:01:00 36.72 Sandhya [facility] Respiratory rate 2022-09-28 13:01:00 18 /min [facility] Oxygen saturation in Arterial blood by Pulse oximetry 2022-09-28 13:01:00 100 /min [facility] Body weight 2022-09-26 22:36:00 88.451 kg [facility] BMI 2022-09-26 22:36:00 30.54 kg/m2 [facility] Respiratory rate 2022-09-28 02:10:00 10 /min [facility] Oxygen saturation in Arterial blood by Pulse oximetry 2022-09-28 02:10:00 100 /min [facility] Systolic blood pressure 2022-09-28 02:08:00 116 mm[Hg] [facility] Diastolic blood pressure 2022-09-28 02:08:00 76 mm[Hg] [facility] Body temperature 2022-09-28 01:42:00 36.67 Sandhya [facility] Heart rate 2022-09-28 00:40:00 72 /min Unive [facility] Body weight 2022-09-26 22:36:00 88.451 kg [facility] BMI 2022-09-26 22:36:00 30.54 kg/m2 [facility] Systolic blood pressure 2022-09-24 05:00:00 118 mm[Hg] [facility] Diastolic blood pressure 2022-09-24 05:00:00 87 mm[Hg] [facility] Heart rate 2022-09-24 05:00:00 78 /min [facility] Respiratory rate 2022-09-24 05:00:00 20 /min [facility] Oxygen saturation in Arterial blood by Pulse oximetry 2022-09-24 05:00:00 100 /min [facility] Body temperature 2022-09-24 03:13:00 37.78 Sandhya [facility] Body height 2022-09-24 03:13:00 170.2 cm [facility] Body weight 2022-09-24 03:13:00 88.86 kg [facility] BMI 2022-09-24 03:13:00 30.68 kg/m2 [facility] Systolic blood pressure 2022-09-23 21:15:00 114 mm[Hg] [facility] Diastolic blood pressure 2022-09-23 21:15:00 74 mm[Hg] [facility] Heart rate 2022-09-23 21:15:00 76 /min Unive [facility] Body temperature 2022-09-23 21:15:00 36.56 Sandhya [facility] Respiratory rate 2022-09-23 21:15:00 18 /min [facility] Body height 2022-09-23 21:15:00 170.2 cm [facility] Body weight 2022-09-23 21:15:00 89.495 kg [facility] BMI 2022-09-23 21:15:00 30.90 kg/m2 [facility] Systolic blood pressure 2022-08-11 21:40:00 125 mm[Hg] [facility] Diastolic blood pressure 2022-08-11 21:40:00 76 mm[Hg] [facility] Heart rate 2022-08-11 21:40:00 71 /min [facility] Body temperature 2022-08-11 21:40:00 36.44 Sandhya [facility] Respiratory rate 2022-08-11 21:40:00 17 /min [facility] Body height 2022-08-11 21:40:00 170.2 cm [facility] Body weight 2022-08-11 21:40:00 86.864 kg [facility] BMI 2022-08-11 21:40:00 29.99 kg/m2 [facility] Respiratory rate 2022-04-27 08:02:00 18 /min [facility] Body height 2022-04-27 08:02:00 170.2 cm [facility] Body weight 2022-04-27 08:02:00 91.173 kg [facility] BMI 2022-04-27 08:02:00 31.48 kg/m2 [facility] Oxygen saturation in Arterial blood by Pulse oximetry 2022-04-27 08:02:00 99 /min [facility] Systolic blood pressure 2022-04-27 08:02:00 121 mm[Hg] [facility] Diastolic blood pressure 2022-04-27 08:02:00 82 mm[Hg] [facility] Heart rate 2022-04-27 08:02:00 85 /min [facility] Body temperature 2022-04-27 08:02:00 37.06 Sandhya [facility] Systolic blood pressure 2022-04-18 16:19:00 103 mm[Hg] [facility] Diastolic blood pressure 2022-04-18 16:19:00 69 mm[Hg] [facility] Heart rate 2022-04-18 16:19:00 84 /min Unive [facility] Body temperature 2022-04-18 16:19:00 36.5 Sandhya [facility] Respiratory rate 2022-04-18 16:19:00 20 /min [facility] Body height 2022-04-18 16:19:00 170.2 cm [facility] Body weight 2022-04-18 16:19:00 91.491 kg [facility] BMI 2022-04-18 16:19:00 31.59 kg/m2 [facility] Systolic blood pressure 2022-04-02 18:22:00 122 mm[Hg] [facility] Diastolic blood pressure 2022-04-02 18:22:00 73 mm[Hg] [facility] Heart rate 2022-04-02 18:22:00 74 /min Un[facility] Body temperature 2022-04-02 18:22:00 36 Sandhya [facility] Respiratory rate 2022-04-02 18:22:00 18 /min [facility] Body height 2022-04-02 18:22:00 170.2 cm [facility] Body weight 2022-04-02 18:22:00 92.59 kg [facility] BMI 2022-04-02 18:22:00 31.97 kg/m2 [facility] Procedures Procedure Date / Time Performed Performing Clinician Source XR KUB 2024-05-09 22:53:06 Vasiliy Sotomayor [facility] COLONOSCOPY (ENDO) 2024-05-09 20:11:47 Thais Marin [facility] COLONOSCOPY (ENDO) 2024-05-09 20:11:47 Thais Marin [facility] EGD (ENDO) 2024-05-09 20:06:13 Thais Marin [facility] EGD (ENDO) 2024-05-09 20:06:13 Thais Marin [facility] ESOPHAGOGASTRODUODENOSCOPY 2024-05-09 19:02:00 Ry Forman [facility] COLONOSCOPY 2024-05-09 19:02:00 Ry Forman [facility] POCT TEST 2024-05-09 00:00:00 Jami Maher [facility] POCT TEST 2024-05-09 00:00:00 Jami Maher [facility] POCT MOLECULAR STREP 2024-02-17 21:45:00 Unknown, Attending [facility] POCT SARS-COV-2 ANTIGEN (BIN AX NOW) 2024-02-17 21:27:00 Clary Richmond [facility] POCT TEST 2024-01-20 00:00:00 Thais Marin [facility] REFERRAL- REQUEST/RESPONSE 2023-11-12 18:24:24 Doctor Unassigned, [place] [facility] POCT TEST 2023-08-20 19:56:00 Pete Owens [facility] ASSIGNMENT OF BENEFITS 2023-08-13 22:13:19 Doctor Unassigned, [place] [facility] COMP. METABOLIC PANEL ([id number]) 2023-08-13 21:08:00 Bogdan Gabriel [facility] TOTAL BETA HCG ASSAY 2023-08-13 21:08:00 Bogdan Gabriel [facility] CBC WITH DIFF 2023-08-13 21:08:00 Bogdan Gabriel [facility] URINALYSIS 2023-08-13 21:08:00 Bogdan Gabriel [facility] HB ABO GROUPING 2023-08-13 21:08:00 Bogdan Gabriel [facility] CONSENT/REFUSAL FOR DIAGNOSI S AND TREATMENT 2023-08-13 20:17:50 Doctor Unassigned, [place] [facility] C-REACTIVE PROTEIN 2023-07-29 20:37:00 Mariama Carrera [facility] COMP. METABOLIC PANEL ([id number]) 2023-07-29 20:37:00 Mariama Carrera [facility] SEDIMENTATION RATE 2023-07-29 20:37:00 Mariama Carrera [facility] CBC WITH DIFF 2023-07-29 20:37:00 Mariama Carrera [facility] URINALYSIS 2023-07-29 20:37:00 Mariama Carrera [facility] EXTERNAL PROVIDER RECORDS 2023-07-23 06:01:00 Doctor Unassigned, [place] [facility] URINE CULTURE 2023-07-01 21:55:00 Tawana Jean [facility] GALV ONLY - VAGINAL PATHOGEN S BY NUCLEIC ACID TESTING 2023-07-01 21:55:00 Tawana Jean [facility] POCT URINALYSIS 2023-07-01 21:39:00 Pete Owens [facility] CONSENT/REFUSAL FOR DIAGNOSI S AND TREATMENT 2023-06-22 00:07:05 Doctor Unassigned, [place] [facility] SLEEP STUDY DATA REPORT 2023-06-03 06:01:00 Doctor Unassigned, [place] [facility] US PELVIS COMPLETE WITH TRANSVAGINAL 2023-05-18 20:38:21 Abby Jordan [facility] MAGNESIUM 2023-05-01 10:09:00 Chavezcolby Esquivel [facility] BASIC METABOLIC PANEL (NA, K , CL, CO2, GLUCOSE, BUN, CREATININE, CA) 2023-05-01 10:09:00 Kathy Esquivel [facility] CBC WITHOUT DIFF 2023-05-01 10:09:00 Kathy Esquivel [facility] MAGNESIUM 2023-04-30 11:12:00 Kathy Esquivel [facility] HEPATIC FUNCTION PANEL ([id number]) (ALB,T.PRO,BILI T,BU/BC,ALT,AST,ALK PHOS) 2023-04-30 11:12:00 Kathy Esquivel [facility] BASIC METABOLIC PANEL (NA, K , CL, CO2, GLUCOSE, BUN, CREATININE, CA) 2023-04-30 11:12:00 Kathy Esquivel [facility] CBC WITHOUT DIFF 2023-04-30 11:12:00 Kathy Esquivel [facility] PROTHROMBIN TIME / INR 2023-04-30 11:12:00 Kathy Alvin [facility] MR VENOGRAM HEAD W WO CONTRAST 2023-04-21 0 03:22[facility]57 [facility] 2023-04-30 03:21:29 [facility] RESPIR[facility] BY PCR 2023-04-28 00:16:00 Devonte Veronica Tanja [facility] COVID-19 (ID NOW RAPID TESTING) 22:03:00 Devonte Veronica [facility] LAB ONLY COVID INTERPRETATION 2023-04-27 22:03:00 Devonte Veronica Tanja [facility] BASIC METABOLIC PANEL (NA, K , CL, CO2, GLUCOSE, BUN, CREATININE, CA) 2023-04-27 15:27:00 Ivonne Lozano [facility] CBC WITH DIFF 2023-04-27 15:27:00 Marta [facility] ELECTROENCEPHALOGRAM 2023-04-27 00:00:00 Marta [facility] CREATINE KINASE 2023-04-26 22:35:00 Devonte Veronica Tanja [facility] CT HEAD WO CONTRAST 2023-04-26 22:24:07 Devonte Veronica Tanja [facility] SURGICAL PATHOLOGY EXAM 2023-04-26 14:16:00 Bandar Baca [facility] HYSTEROSCOPY WITH DILATATION AND CURETTAGE 2023-04-26 13:06:00 Bandar Baca [facility] CBC WITH DIFF 2023-04-26 11:59:00 Tono Taylor [facility] HB ABO GROUPING 2023-04-26 11:59:00 Claudio Goldsmith [facility] POCT TEST 2023-04-26 11:40:00 Loreto Oconnell [facility] CONSENT/REFUSAL FOR DIAGNOSI S AND TREATMENT 2023-04-26 11:37:09 Doctor Unassigned, [place] [facility] ASSIGNMENT OF BENEFITS 2023-04-26 11:34:48 Doctor Unassigned, [place] [facility] URINALYSIS 2023-04-09 16:16:00 [facility] CREATINE KINASE 2023-04-09 15:50:00 [facility] C-REACTIVE PROTEIN 2023-04-09 15:50:00 [facility] C4 COMPLEMENT 2023-04-09 15:50:00 [facility] IRON PANEL 2023-04-09 15:50:00 [facility] G6PD SCREENING TEST 2023-04-09 15:50:00 [facility] VITAMIN D, 25-OH 2023-04-09 15:50:00 [facility] QUANTIFERON-TB ASSAY 2023-04-09 15:50:00 [facility] THIOPURINE METHYLTRANSFERASE, RBC 2022-0620 15:50:00 [facility] ANTI-SSA(RO) 2023-04-09 15:50:00 [facility] ANTI-DOUBLE STRANDED DNA 2023-04-09 15:50:00 [facility] QFT TB2 MINUS NIL 2023-04-09 15:50:00 [facility] LUPUS ANTICOAGULANT REFLEXIV E PANEL 2023-04-09 15:50:00 [facility] FERRITIN SERUM 2023-04-07 19:38:00 [facility] RHEUMATOID FACTOR 2023-04-07 19:38:00 Thais Marin [facility] COMP. METABOLIC PANEL ([id number]) 2023-04-07 19:38:00 Thais Marin [facility] SEDIMENTATION RATE 2023-04-07 19:38:00 Thais Marin [facility] CBC WITH DIFF 2023-04-07 19:38:00 Thais Marin [facility] ANTI-NUCLEAR ANTIBODY SCREEN 2023-04-07 19:38:00 Thais Marin [facility] HEPATITIS B SURFACE ANTIGEN 2023-04-07 19:38:00 Thais Marin [facility] HCV ANTIBODY 2023-04-07 19:38:00 Thais Marin [facility] GC & CHLAMYDIA AMPLIFIED ASSAY 2023-03-21 8 19:38:00 Thais Marin [facility] HSV 1 AND 2 GLYCOPROTEIN G IGG 2023-03-21 8 19:38:00 Thais Marin [facility] ADC OR ZACHARY ONLY - RPR 2023-04-07 19:38:00 Thais Marin [facility] HIV 1/2 AG-AB WITH REFLEX 2023-04-07 19:38:00 Thais Marin [facility] TRICHOMONAS AMPLIFIED ASSAY 2023-04-07 19:38:00 Thais Marin [facility] FERRITIN SERUM 2023-04-07 19:38:00 Jose Craig [facility] EKG-12 LEAD 2023-01-26 04:19:59 Gaurav John [facility] CT ABDOMEN PELVIS WO CONTRAST 2023-01-26 03:13:00 Gaurav John [facility] LIPASE 2023-01-26 02:21:00 Gaurav John [facility] COMP. METABOLIC PANEL ([id number]) 2023-01-26 02:21:00 Gaurav John [facility] CBC WITH DIFF 2023-01-26 02:21:00 Gaurav John [facility] URINALYSIS 2023-01-26 02:05:00 Gaurav John [facility] POCT TEST 2023-01-26 02:03:00 Gaurav John [facility] NOTICE OF PRIVACY PRACTICES 2023-01-26 01:50:27 Doctor Unassigned, [place] [facility] CONSENT/REFUSAL FOR DIAGNOSI S AND TREATMENT 2023-01-26 01:49:25 Doctor Unassigned, [place] [facility] ASSIGNMENT OF BENEFITS 2023-01-18 21:28:15 Doctor Unassigned, [place] [facility] CONSENT/REFUSAL FOR DIAGNOSI S AND TREATMENT 2023-01-18 19:32:06 Doctor Unassigned, [place] [facility] POCT TEST 2023-01-18 17:54:00 Bandar Baca [facility] CBC WITH DIFF 2023-01-09 08:24:00 Adum, Mariajose Gudino [facility] CBC WITH DIFF 2023-01-09 08:24:00 Adum, Mariajose Gudino [facility] CBC WITHOUT DIFF 2023-01-09 04:08:00 Adum, Mariajose Gudino [facility] CBC WITHOUT DIFF 2023-01-09 04:08:00 Adum, Mariajose Gudino [facility] US PELVIS LIMITED 2023-01-09 01:57:00 Adum, Mariajose Gudino [facility] US PELVIS LIMITED 2023-01-09 01:57:00 Adum, Mariajose Gudino [facility] DILATION AND CURETTAGE 2023-01-09 00:05:00 Adum, Mariajose Gudino [facility] HYSTEROSCOPY 2023-01-09 00:05:00 Adum, Mariajose Gudino [facility] DIAGNOSTIC LAPAROSCOPY 2023-01-09 00:05:00 Adum, Mariajose Gudino [facility] LAPAROSCOPIC LYSIS OF ADHESIONS 00:05:00 Adum, Mariajose Gudino [facility] LAPAROSCOPIC OVARIAN CYST ASPIRATION 2023-01-09 00:05:00 Adum, Mariajose Gudino [facility] URINALYSIS 2023-01-08 16:47:00 Clary Richmond [facility] URINALYSIS 2023-01-08 16:47:00 [facility] LIPASE 2023-01-08 16:01:00 [facility] COMP. METABOLIC PANEL ([id number]) 2023-01-08 16:01:00 [facility] TOTAL BETA HCG ASSAY 2023-01-08 16:01:00 Adum, Mariajose Shahab [facility] CBC WITH DIFF 2023-01-08 16:01:00 [facility] HB ABO GROUPING 2023-01-08 16:01:00 [facility] LIPASE 2023-01-08 16:01:00 [facility] COMP. METABOLIC PANEL ([id number]) 2023-01-08 16:01:00 [facility] TOTAL BETA HCG ASSAY 2023-01-08 16:01:00 Adum, Mariajose Shahab [facility] CBC WITH DIFF 2023-01-08 16:01:00 [facility] HB ABO GROUPING 2023-01-08 16:01:00 [facility] CONSENT/REFUSAL FOR DIAGNOSI S AND TREATMENT 2023-01-08 15:23:42 Doctor Unassigned, [place] [facility] CONSENT/REFUSAL FOR DIAGNOSI S AND TREATMENT 2023-01-08 15:23:42 Doctor Unassigned, [place] [facility] DAY SURGERY - ADC 2023-01-08 05:01:00 Doctor Unassigned, [place] [facility] COMP. METABOLIC PANEL ([id number]) 2023-01-02 04:08:00 Gaurav John [facility] CBC WITH DIFF 2023-01-02 04:08:00 Gaurav John [facility] URINALYSIS 2023-01-02 04:08:00 Gaurav John [facility] HB ABO GROUPING 2023-01-02 04:08:00 Gaurav John [facility] NOTICE OF PRIVACY PRACTICES 2023-01-02 03:45:21 Doctor Unassigned, [place] [facility] CONSENT/REFUSAL FOR DIAGNOSI S AND TREATMENT 2023-01-02 03:41:52 Doctor Unassigned, [place] [facility] TOTAL BETA HCG ASSAY 2023-01-01 22:12:00 Wilbur Wilson [facility] POCT URINALYSIS 2022-12-21 16:05:00 Pete Owens [facility] AUTHORIZATION TO RELEASE PHI TO [facility] 2022-12-21 05:01:00 Doctor Unassigned, [place] [facility] POCT URINALYSIS W/O SPECIFIC GRAVITY 2022-12-11 15:38:00 Pete Owens [facility] POCT TEST 2022-12-11 15:37:00 Pete Owens [facility] POCT TEST 2022-12-09 17:56:00 Tawana Jean [facility] POCT URINALYSIS W/O SPECIFIC GRAVITY 2022-12-09 16:24:00 Tawana Jean [facility] REPORT OF 2022-12-09 05:01:00 Doctor Unassigned, [place] [facility] POCT TEST 2022-10-22 20:16:00 Tawana Jean [facility] PATIENT FINANCIAL POLICY 2022-10-22 20:09:06 Doctor Unassigned, [place] [facility] XR ANKLE <3 VW LEFT 2022-09-28 16:20:43 Dara Renosol [facility] XR ANKLE <3 VW LEFT 2022-09-28 16:20:43 Dara Renosol [facility] DILATION AND CURETTAGE 2022-09-28 00:56:00 Dara Renosol [facility] DILATION AND CURETTAGE 2022-09-28 00:56:00 Dara Renosol [facility] FIRST TRIMESTER LESS THAN 14 WEEKS WITH TRANSVAGINAL 2022-09-27 02:21:11 Winifred James [facility] FIRST TRIMESTER LESS THAN 14 WEEKS WITH TRANSVAGINAL 2022-09-27 02:21:11 Winifred James [facility] COMP. METABOLIC PANEL ([id number]) 2022-09-26 23:14:00 Winifred James [facility] TOTAL BETA HCG ASSAY 2022-09-26 23:14:00 Winifred James [facility] CBC WITH DIFF 2022-09-26 23:14:00 Winifred James [facility] PROTHROMBIN TIME / INR 2022-09-26 23:14:00 Winifred James [facility] COMP. METABOLIC PANEL ([id number]) 2022-09-26 23:14:00 Winifred James [facility] TOTAL BETA HCG ASSAY 2022-09-26 23:14:00 Winifred James [facility] CBC WITH DIFF 2022-09-26 23:14:00 Winifred James [facility] PROTHROMBIN TIME / INR 2022-09-26 23:14:00 Winifred James [facility] CONSENT/REFUSAL FOR DIAGNOSI S AND TREATMENT 2022-09-26 22:23:31 Doctor Unassigned, [place] [facility] CONSENT/REFUSAL FOR DIAGNOSI S AND TREATMENT 2022-09-26 22:23:31 Doctor Unassigned, [place] [facility] FIRST TRIMESTER LESS THAN 14 WEEKS WITH TRANSVAGINAL 2022-09-24 06:22:21 Ariana Castro [facility] POCT TEST 2022-09-24 04:43:00 Paige Melissa [facility] BASIC METABOLIC PANEL (NA, K , CL, CO2, GLUCOSE, BUN, CREATININE, CA) 2022-09-24 04:20:00 Ariana Castro [facility] TOTAL BETA HCG ASSAY 2022-09-24 04:20:00 Ariana Castro [facility] CBC WITH DIFF 2022-09-24 04:20:00 Ariana Castro [facility] ASSIGNMENT OF BENEFITS 2022-09-24 03:31:15 Doctor Unassigned, [place] [facility] CONSENT/REFUSAL FOR DIAGNOSI S AND TREATMENT 2022-09-24 03:08:55 Doctor Unassigned, [place] [facility] POCT URINALYSIS 2022-09-23 21:19:00 Tawana Jean [facility] POCT TEST 2022-08-11 21:40:00 Tawana Jean [facility] REPORT OF 2022-08-11 06:01:00 Doctor Unassigned, [place] [facility] POCT URINALYSIS W/O SPECIFIC GRAVITY 2022-08-11 00:00:00 Tawana Jean [facility] CBC WITH DIFF 2022-04-27 08:22:00 Paige Melissa [facility] POCT TEST 2022-04-27 08:22:00 Paige Melissa [facility] NOTICE OF PRIVACY PRACTICES 2022-04-27 07:55:47 Doctor Unassigned, [place] [facility] CONSENT/REFUSAL FOR DIAGNOSI S AND TREATMENT 2022-04-27 07:54:13 Doctor Unassigned, [place] [facility] EXTERNAL PROVIDER RECORDS 2022-04-03 05:01:00 Doctor Unassigned, [place] [facility] POCT TEST 2022-04-02 19:31:00 Louise Prado [facility] THYROID STIMULATING HORMONE 2022-04-02 19:05:00 Louise Prado [facility] Encounters Start Date/Time End Date/Time Encounter Type Admission Type Attending [facility] Care Department Encounter ID Source 2023-12-21 14:16:00 [facility] [id number] [facility] 2023-10-29 10:17:01 [facility] [id number] [facility] 2023-01-04 10:43:39 Outpatient BANDAR ELLIS [facility] FINANCIAL PLANNING ADVISOR [id number] [facility] 2021-04-22 01:27:59 Emergency [facility] [id number] [facility] 2021-04-21 19:32:10 Emergency [facility] [id number] [facility] 2021-04-18 21:43:36 Emergency [facility] [id number] [facility] 2024-07-13 00:00:00 2024-07-16 16:59:20 Refill Pipkwaku [facility] MEDICAL OFFICE BUILDING 1.2.840.114 350.1.13.10 4.2.7.2.686 [id number] [facility] 2024-07-09 15:10:12 2024-07-09 15:10:12 Outpatient SFA [facility] 011 Nahum Brooks 2024-07-06 10:00:00 2024-07-06 11:00:00 Office Visit Sarah [facility] MEDICAL OFFICE BUILDING 1.2.840.114 350.1.13.10 4.2.7.2.686 [id number] [facility] 2024-07-06 10:00:00 2024-07-06 10:00:00 Outpatient R SARAH [facility] [id number] [facility] 2024-07-03 00:00:00 2024-07-03 12:23:17 Specialty Pharmacy Larisa Ocampo Mai, Ngoc Keerthi [facility] 1.2.840.114 350.1.13.10 4.2.7.2.686 [id number] [facility] 2024-07-03 00:00:00 2024-07-03 00:00:00 Outpatient LUANN WALL [facility] [id number] [facility] 2024-06-30 15:16:17 2024-06-30 15:16:17 Outpatient SFA [facility] 011 Nahum Sheridan Todd 2024-06-23 10:40:55 2024-06-23 10:40:55 Outpatient SFA [facility] [id number] Nahum Sheridan Todd 2024-06-21 15:25:11 2024-06-21 15:25:11 Outpatient SFA [facility] 100 Nahumtosha Brooks 2024-06-18 00:00:00 2024-06-19 08:59:23 Refill Pipkwaku, Ira [facility] MARIA ISABEL [facility] BUILDING 1.2.840.114 350.1.13.10 4.2.7.2.686 [id number] [facility] 2024-05-16 00:00:00 2024-06-17 18:16:40 Patient Secure Msg Thais Marin [facility]DA [facility] 1.2.840.114 350.1.13.10 4.2.7.2.686 [id number] [facility] 2024-06-16 00:00:00 2024-06-16 10:52:06 Telephone [facility] 1.2840.114 350.1.13.10 4.2.7.2.686 [id number] [facility] 2024-05-08 00:00:00 2024-06-10 18:18:00 Patient Secure Msg Doctor Unassigned, [place] Doctor Unassigned, [place] [facility] 1.2.840.114 350.1.13.10 4.2.7.2.686 [id number] [facility] 2024-06-07 00:00:00 2024-06-08 10:47:02 Telephone Juan Reece [facility] 1.2.840.114 350.1.13.10 4.2.7.2.686 [id number] [facility] 2024-06-01 00:00:00 2024-06-07 17:00:30 Patient Secure Msg Juan Reece [facility] 1.2.840.114 350.1.13.10 4.2.7.2.686 [id number] [facility] 2024-06-07 00:00:00 2024-06-07 00:00:00 Outpatient LUANN WALL [facility] [id number] [facility] 2024-05-29 00:00:00 2024-05-29 00:00:00 Outpatient R LUANN DUMONT [facility] [id number] [facility] 2024-05-25 00:00:00 2024-05-25 15:04:31 Specialty Pharmacy Cari Martinez Shatara [facility] 1.2.840.114 350.1.13.10 4.2.7.2.686 [id number] [facility] 2024-05-25 13:00:00 2024-05-25 14:04:09 Outpatient LUANN WALL [facility] [id number] [facility] 2024-05-25 13:00:00 2024-05-25 14:04:09 Office Visit Luann Dumont [facility] 1.2.840.114 350.1.13.10 4.2.7.2.686 [id number] [facility] 2024-05-24 16:30:00 2024-05-24 16:30:00 Outpatient THAIS HALL [facility] [id number] [facility] 2024-05-11 00:00:00 2024-05-11 17:37:27 Refill Pipes, [facility] MEDICAL OFFICE BUILDING 1.2.840.114 350.1.13.10 4.2.7.2.686 [id number] [facility] 2024-05-09 17:02:00 2024-05-09 18:08:00 Emergency X COOKIE MELGAR JOHNNA VTCHERYL ERT [id number] [facility] 2024-05-09 17:02:00 2024-05-09 18:08:00 Emergency [facility] 1.2.840.114 350.1.13.10 4.2.7.2.686 [id number] [facility] 2024-05-09 10:54:00 2024-05-09 16:43:00 Outpatient R RY FORMAN [facility] GIKatalina [id number] [facility] 2024-05-09 10:54:00 2024-05-09 16:43:00 Hospital Encounter Ry Forman [facility] 1.2.840.114 350.1.13.10 4.2.7.2.686 [id number] [facility] 2024-05-09 11:45:00 2024-05-09 12:45:00 Surgery Ry Forman [facility] 1.2.840.114 350.1.13.10 4.2.7.2.686 [id number] [facility] 2024-04-22 00:00:00 2024-04-23 02:02:21 Mobile Device Encounter Sarah [facility] MEDICAL OFFICE BUILDING 1.2.840.114 350.1.13.10 4.2.7.2.686 [id number] [facility] 2024-04-18 00:00:00 2024-04-18 11:19:09 Telephone Tawnya Gan [facility] 1.2.840.114 350.1.13.10 4.2.7.2.686 [id number] [facility] 2024-04-13 09:00:00 2024-04-13 10:00:00 Office Visit Sarah [facility] MEDICAL OFFICE BUILDING 1.2.840.114 350.1.13.10 4.2.7.2.686 [id number] [facility] 2024-04-13 09:00:00 2024-04-13 09:00:00 Outpatient R IRAKWAKU IRA [facility] [id number] [facility] 2024-04-11 00:00:00 2024-04-11 10:53:01 Telephone Malik Tawnya [facility] ([facility]) 1.2.840.114 350.1.13.10 4.2.7.2.686 [id number] [facility] 2024-04-04 00:00:00 2024-04-04 12:42:55 Specialty Pharmacy Shandra Green Ashley M [facility] 1.2.840.114 350.1.13.10 4.2.7.2.686 [id number] [facility] 2024-04-04 00:00:00 2024-04-04 12:38:29 Specialty Pharmacy Shandra Green Ashley [facility] 1.2.840.114 350.1.13.10 4.2.7.2.686 [id number] [facility] 2024-04-04 10:30:00 2024-04-04 10:30:00 Outpatient R LUDY BRIDGES [facility] [id number] [facility] 2024-04-04 00:00:00 2024-04-04 09:00:54 Specialty Pharmacy Azalea Dotson Sudha [facility] 1.2.840.114 350.1.13.10 4.2.7.2.686 [id number] [facility] 2024-04-03 10:20:00 2024-04-03 10:20:00 Outpatient R LUDY BRIDGES [facility] [id number] [facility] 2024-03-15 11:00:00 2024-03-15 11:00:00 Outpatient R PIPES, [facility] [id number] [facility] 2024-03-03 00:00:00 2024-03-03 14:25:42 Specialty Pharmacy Mary Valencia Tamara L [facility] 1.2840.114 350.1.13.10 4.2.7.2.686 [id number] [facility] 2024-03-02 00:00:00 2024-03-02 09:12:24 Specialty Pharmacy Amadeo Cedeño Gary [facility] 1.2840.114 350.1.13.10 4.2.7.2.686 [id number] [facility] 2024-03-01 11:15:00 2024-03-01 11:30:00 Cna Ltc Visit Lab, [facility] Luann Dumont, [facility] 1.0.114 350.1.13.10 4.2.7.2.686 [id number] [facility] 2024-03-01 10:00:00 2024-03-01 11:03:21 Outpatient R LUANN DUMONT [facility] [id number] [facility] 2024-03-01 10:00:00 2024-03-01 11:03:21 Office Visit Luann Dumont [facility] 1.20.114 350.1.13.10 4.2.7.2.686 [id number] [facility] 2024-01-20 00:00:00 2024-02-26 18:24:48 Patient Secure Msg Thais Marin [facility] 1.2840.114 350.1.13.10 4.2.7.2.686 [id number] [facility] 2024-02-24 00:00:00 2024-02-24 17:21:48 Clinic Assessment Sarah [facility] MEDICAL OFFICE BUILDING 1.2.840.114 350.1.13.10 4.2.7.2.686 [id number] [facility] 2024-02-24 16:00:00 2024-02-24 16:00:00 Outpatient R SARAH [facility] [id number] [facility] 2024-02-23 00:00:00 2024-02-23 08:00:38 Patient Secure g Thais Marin A [facility] MEDICAL OFFICE BUILDING 1.2.840.114 350.1.13.10 4.2.7.2.686 [id number] [facility] 2024-02-21 00:00:00 2024-02-21 11:15:36 Specialty Pharmacy Domenica Ludwig Monique [facility] 1.2.840.114 350.1.13.10 4.2.7.2.686 [id number] [facility] 2024-02-17 16:20:00 2024-02-17 16:40:00 Urgent Care Sandra Conley, Attending [facility] MED[facility] OFFICE BUILDING 1.2.840.114 350.1.13.10 4.2.7.2.686 [id number] [facility] 2024-02-17 16:20:00 2024-02-17 16:20:00 Outpatient R SANDRA CONLEY [facility] [id number] [facility] 2024-02-16 00:00:00 2024-02-16 16:41:31 Wade Cabrera Steven [facility] 1.2.840.114 350.1.13.10 4.2.7.2.686 [id number] [facility] 2024-02-08 13:00:00 2024-02-08 13:00:00 Outpatient R PIPES, IRA [facility] [id number] [facility] 2024-02-07 15:05:00 2024-02-07 15:05:00 Outpatient R THIAS MARIN [facility] [id number] [facility] 2024-01-25 00:00:00 2024-01-25 16:15:42 Patient Secure Msg Doctor Unassigned, Big Arm Doctor Unassigned, Big Arm [facility] 1.2.840.114 350.1.13.10 4.2.7.2.686 [id number] [facility] 2024-01-21 00:00:00 2024-01-21 15:32:45 Telephone Azalea Dotson [facility] 1.2.840.114 350.1.13.10 4.2.7.2.686 [id number] [facility] 2024-01-20 00:00:00 2024-01-20 10:56:30 Patient Secure Msg [facility]ais Marin [facility] 1.2.840.114 350.1.13.10 4.2.7.2.686 [id number] [facility] 2024-01-20 10:30:00 2024-01-20 10:45:00 Cna Ltc Visit Lab, Ang - Db Thais Marin Marlene [facility] 1.2.840.114 350.1.13.10 4.2.7.2.686 [id number] [facility] 2024-01-20 09:00:00 2024-01-20 09:10:36 Outpatient R THAIS MARIN [facility] [id number] [facility] 2024-01-20 09:00:00 2024-01-20 09:10:36 [facility] 1.840.114 350.1.13.10 4.2.7.2.686 [id number] 044 [id number] [facility] 2024-01-19 08:30:00 2024-01-19 08:30:00 Outpatient R THAIS MARIN [facility] [id number] [facility] 2024-01-18 15:30:00 2024-01-18 16:00:00 Office Visit Irakwaku [facility] MEDICAL OFFICE BUILDING 1..114 350.1.13.10 4.2.7.2.686 [id number] 092 [id number] [facility] 2024-01-18 15:30:00 2024-01-18 15:30:00 Outpatient R SARAH [facility] [id number] [facility] 2023-07-14 00:00:00 2024-01-03 11:59:22 Letter (Out) Tawnya Gan [facility] 1.114 350.1.13.10 4.2.7.2.686 [id number] 084 [id number] [facility] 2023-11-26 00:00:00 2023-12-13 14:08:[address] [facility] 1.84114 350.1.13.10 4.2.7.2.686 [id number] 086 [id number] [facility] 2023-12-10 15:00:00 2023-12-10 15:00:00 Outpatient R THAIS MARIN [facility] [id number] [facility] 2023-12-02 00:00:00 2023-12-02 14:53:27 Telephone Thais Marin [facility] 1.84.114 350.1.13.10 4.2.7.2.686 [id number] [id number] [facility] 2023-12-01 11:00:00 2023-12-01 11:00:00 Outpatient R THAIS MARIN [facility] [id number] [facility] 2023-11-24 00:00:00 2023-11-25 09:52:44 Patient Secure Msg Thais Marin [facility] OFFICE BUILDING 1.2.840.114 350.1.13.10 4.2.7.2.686 [id number] [id number] [facility] 2023-11-19 00:00:00 2023-11-24 15:03:15 Patient Secure g ReeceJuan [facility] 1.2.840.114 350.1.13.10 4.2.7.2.686 [id number] 086 [id number] [facility] 2023-11-16 00:00:00 2023-11-18 10:32:20 Telephone Pipes, [facility] MEDICAL OFFICE BUILDING 1.2.840.114 350.1.13.10 4.2.7.2.686 [id number] 092 [id number] [facility] 2023-11-17 00:00:00 2023-11-17 15:54:10 Refill [facility] [place] 1.2.840.114 350.1.13.10 4.2.7.2.686 [id number] 044 [id number] [facility] 2023-11-16 12:00:00 2023-11-16 12:30:00 Office Visit Pipes, [facility] MEDICAL OFFICE BUILDING 1.2840.114 350.1.13.10 4.2.7.2.686 [id number] 092 [id number] [facility] 2023-11-16 09:30:00 2023-11-16 10:32:49 Outpatient R LUDY BRIDGES [facility] [id number] [facility] 2023-11-16 09:30:00 2023-11-16 10:32:49 Office Visit Juan Reece Vijaya Laxmi [facility] 1.2840.114 350.1.13.10 4.2.7.2.686 [id number] 086 [id number] [facility] 2023-10-26 00:00:00 2023-11-01 11:14:23 Refill Thais Marin [facility] 1.2.840.114 350.1.13.10 4.2.7.2.686 [id number] 044 [id number] [facility] 2023-10-26 22:57:00 2023-10-27 01:00:00 Emergency X KARYN MELISSAAURA [facility] ERT [id number] [facility] 2023-10-26 22:57:00 2023-10-27 01:00:00 Emergency Paige Melissa Puja [facility] 1.2.840.114 350.1.13.10 4.2.7.2.686 [id number] 084 [id number] [facility] 2023-10-25 00:00:00 2023-10-25 17:13:10 Telephone Pipes, Ira [facility] MED[facility] OFFICE BUILDING 1.2.840.114 350.1.13.10 4.2.7.2.686 [id number] 092 [id number] [facility] 2023-10-20 15:00:00 2023-10-20 16:41:08 Outpatient R LANCE GILMAN [facility] [id number] [facility] 2023-10-20 15:00:00 2023-10-20 16:41:08 Office Visit Lance Gilman [facility] 1.2.840.114 350.1.13.10 4.2.7.2.686 [id number] [facility] 2023-10-04 09:30:00 2023-10-04 09:30:00 Outpatient R MALIK TAWNYA [facility] [id number] [facility] 2023-09-29 14:30:00 2023-09-29 14:30:00 Outpatient R [facility] [id number] [facility] 2023-09-27 08:00:00 2023-09-27 08:00:00 Outpatient R TAWANA JEAN [facility] [id number] [facility] 2023-09-22 13:45:00 2023-09-22 13:45:00 Outpatient R BOB FLORES CRAIG [facility] [id number] [facility] 2023-09-22 00:00:00 2023-09-22 00:00:00 Case Management [facility] 1.0.114 350.1.13.10 4.2.7.2.686 [id number] [facility] 2023-09-16 00:00:00 2023-09-16 00:00:00 Cassieill Juan Reece [facility] 1.0.114 350.1.13.10 4.2.7.2.686 [id number] [id number] [facility] 2023-09-16 00:00:00 2023-09-16 00:00:00 Patient Secure Juan Erickson [facility] 1.840.114 350.1.13.10 4.2.7.2.686 [id number] 086 [id number] [facility] 2023-09-15 15:10:00 2023-09-15 16:12:53 Outpatient LANCE SCHILLING [facility] [id number] [facility] 2023-09-15 15:10:00 2023-09-15 16:12:53 Office Visit KyleeederLance [facility] 1.840.114 350.1.13.10 4.2.7.2.686 [id number] [id number] [facility] 2023-09-09 14:45:00 2023-09-09 14:45:00 Outpatient TAWANA LLANOS [facility] [id number] [facility] 2023-09-09 10:15:00 2023-09-09 11:28:12 Outpatient BOB VIRGEN CRAIG [facility] [id number] [facility] 2023-09-09 10:15:00 2023-09-09 11:28:12 Ancillary Visit [facility] 1.840.114 350.1.13.10 4.2.7.2.686 [id number] [facility] 2023-09-09 00:00:00 2023-09-09 00:00:00 Refill Thais Marin [facility] 1..840.114 350.1.13.10 4.2.7.2.686 [id number] [id number] [facility] 2023-09-08 11:00:00 2023-09-08 11:00:00 Outpatient THAIS HALL [facility] [id number] [facility] 2023-09-07 00:00:00 2023-09-07 00:00:00 Telephone Tawnya Gan [facility] 1.840.114 350.1.13.10 4.2.7.2.686 [id number] 084 [id number] [facility] 2023-09-06 09:30:00 2023-09-06 09:30:00 Outpatient TAWNYA LEE [facility] [id number] [facility] 2023-09-04 00:00:00 2023-09-04 00:00:00 Refill Thais Marin [facility] 1.2840.114 350.1.13.10 4.2.7.2.686 [id number] 044 [id number] [facility] 2023-09-01 15:30:00 2023-09-01 15:30:00 Outpatient TAWNYA LEE [facility] [id number] [facility] 2023-09-01 00:00:00 2023-09-01 00:00:00 [facility] 1.840.114 350.1.13.10 4.2.7.2.686 [id number] [id number] [facility] 2023-08-30 00:00:00 2023-08-30 00:00:00 Refill Pipes, [facility] MEDICAL OFFICE BUILDING 1.2840.114 350.1.13.10 4.2.7.2.686 [id number] [id number] [facility] 2023-08-26 00:00:00 2023-08-26 00:00:00 Case Management Laurie Montejo [facility] NAL BUILDING 1.2840.114 350.1.13.10 4.2.7.2.686 [id number] [facility] 2023-08-26 00:00:00 2023-08-26 00:00:00 Refill Pipes, [facility] MEDICAL OFFICE BUILDING 1.2840.114 350.1.13.10 4.2.7.2.686 [id number] [id number] [facility] 2023-08-26 00:00:00 2023-08-26 00:00:00 Refill Amish [facility] 1.2.840.114 350.1.13.10 4.2.7.2.686 [id number] [facility] 2023-08-25 13:58:00 2023-08-25 23:59:00 [facility] [id number] [facility] 2023-08-25 13:58:00 2023-08-25 23:59:00 [facility] 1..840.114 350.1.13.10 4.2.7.2.686 [id number] [facility] 2023-08-25 13:40:00 2023-08-25 14:51:03 Office Visit Bronwyn Wellington [facility] 1..840.114 350.1.13.10 4.2.7.2.686 [id number] [facility] 2023-08-20 13:00:00 2023-08-20 14:03:14 Outpatient PETE CONNOR [facility] [id number] [facility] 2023-08-20 13:00:00 2023-08-20 14:03:14 Nurse Visit Visit, Ang-Rmchp Nurse Pete Owens [facility] PRODUCT INSPECTION COORDINATOR [facility] MAT[facility]NAL & [facility] 1..840.114 350.1.13.10 4.2.7.2.686 [id number] [facility] 2023-08-17 09:30:00 2023-08-17 09:30:00 Outpatient R JOCY MICHAEL [facility] [id number] [facility] 2023-08-17 00:00:00 2023-08-17 00:00:00 Case Management Laurie Montejo [facility] 1..840.114 350.1.13.10 4.2.7.2.686 [id number] [facility] 2023-08-16 09:00:00 2023-08-16 09:26:12 Outpatient R IRA SMITH [facility] [id number] [facility] 2023-08-16 09:00:00 2023-08-16 09:26:12 Office Visit Sarah [facility] OFFICE BUILDING 1..840.114 350.1.13.10 4.2.7.2.686 [id number] [id number] [facility] 2023-08-13 14:35:00 2023-08-13 17:12:00 Emergency X BOGDAN GABRIEL [facility] ERT [id number] [facility] 2023-08-13 14:35:00 2023-08-13 17:12:00 Emergency Bogdan Gabriel [facility] 1..840.114 350.1.13.10 4.2.7.2.686 [id number] [facility] 2023-08-13 13:15:00 2023-08-13 13:15:00 Outpatient R PETE OWENS [facility] [id number] [facility] 2023-08-13 00:00:00 2023-08-13 00:00:00 Patient Secure Msg Pete Owens C [facility] PRODUCT INSPECTION COORDINATOR [facility] 1..840.114 350.1.13.10 4.2.7.2.686 [id number] [facility] 2023-08-09 11:00:00 2023-08-09 11:00:00 Outpatient R SARAH [facility] [id number] [facility] 2023-08-09 00:00:00 2023-08-09 00:00:00 Telephone Lorena Kirk [facility] MEDICAL OFFICE BUILDING 1.2.840.114 350.1.13.10 4.2.7.2.686 [id number] [id number] [facility] 2023-08-02 00:00:00 2023-08-02 00:00:00 Telephone Bronwyn Wellington [facility] 1.2.840.114 350.1.13.10 4.2.7.2.686 [id number] [facility] 2023-07-30 00:00:00 2023-07-30 00:00:00 Patient Secure Msg Teganvaradha [facility] 1.2.840.114 350.1.13.10 4.2.7.2.686 [id number] [facility] 2023-07-29 14:05:00 2023-07-29 23:59:00 Hospital Encounter [facility] AT [facility] 1.2.840.114 350.1.13.10 4.2.7.2.686 [id number] [facility] 2023-07-29 15:00:00 2023-07-29 15:15:00 Cna Ltc Visit Lab, [facility] Juan Hernandez Emilio B [facility] SPECIALTY [facility] 1.2.840.114 350.1.13.10 4.2.7.2.686 [id number] [facility] 2023-07-29 13:40:00 2023-07-29 14:40:01 Outpatient R [facility] [id number] [facility] 2023-07-29 13:40:00 2023-07-29 14:00:00 Office Visit [facility] 1.2.840.114 350.1.13.10 4.2.7.2.686 [id number] [facility] 2023-07-28 15:00:00 2023-07-28 15:00:00 Outpatient BRONWYN KWONG [facility] [id number] [facility] 2023-07-26 00:00:00 2023-07-26 00:00:00 Patient Secure Msg Malik [facility] 1.840.114 350.1.13.10 4.2.7.2.686 [id number] 084 [id number] [facility] 2023-07-23 00:00:00 2023-07-23 00:00:00 Orders Only Doctor Unassigned, [place] [facility] 1..114 350.1.13.10 4.2.7.2.686 [id number] [facility] 2023-07-21 00:00:00 2023-07-21 00:00:00 Refill Thais Marin A [facility] MEDICAL OFFICE BUILDING 1.840.114 350.1.13.10 4.2.7.2.686 [id number] 044 [id number] [facility] 2023-07-14 15:30:00 2023-07-14 16:00:00 Office Visit Malik [facility] 1..114 350.1.13.10 4.2.7.2.686 [id number] [id number] [facility] 2023-07-14 15:30:00 2023-07-14 15:30:00 Outpatient TAWNYA LEE [facility] [id number] [facility] 2023-07-14 14:00:00 2023-07-14 14:00:00 Outpatient TAWNYA LEE [facility] [id number] [facility] 2023-07-13 11:00:00 2023-07-13 11:00:00 Outpatient Alannah GAN TAWNYA [facility] [id number] [facility] 2023-07-13 00:00:00 2023-07-13 00:00:00 Irene Church [facility] OFF[facility] BUILDING 1..840.114 350.1.13.10 4.2.7.2.686 [id number] [facility] 2023-07-07 14:20:00 2023-07-07 15:54:59 Outpatient R BRONWYN WELLINGTON [facility] [id number] [facility] 2023-07-07 14:20:00 2023-07-07 15:54:59 Office Visit Bronwyn Wellington [facility] 1..840.114 350.1.13.10 4.2.7.2.686 [id number] [facility] 2023-07-05 00:00:00 2023-07-05 00:00:00 Case Management Tawana Jean [facility] PRODUCT INSPECTION COORDINATOR [facility] MATERNAL & CHILD [facility] ..840.114 350.1.13.10 4.2.7.2.686 [id number] [facility] 2023-07-05 00:00:00 2023-07-05 00:00:00 Patient Secure Msg Bronwyn Wellington [facility] ..840.114 350.1.13.10 4.2.7.2.686 [id number] [facility] 2023-07-05 00:00:00 2023-07-05 00:00:00 Patient Secure Msg Tawana Jean [facility] PRODUCT INSPECTION COORDINATOR [facility] & CHILD [facility] 1..840.114 350.1.13.10 4.2.7.2.686 [id number] 107 [id number] [facility] 2023-07-02 00:00:00 2023-07-02 00:00:00 Telephone PickYared rosarionda [facility] PRODUCT INSPECTION COORDINATOR [facility] & CHILD [facility] 1..840.114 350.1.13.10 4.2.7.2.686 [id number] [facility] 2023-07-01 14:45:00 2023-07-01 15:52:34 Outpatient R PHYLLISMarshall TAWANA [facility] [id number] [facility] 2023-07-01 14:45:00 2023-07-01 15:52:34 Office Visit RoxannTawana rosario [facility] PRODUCT INSPECTION COORDINATOR [facility] & CHILD [facility] 1..840.114 350.1.13.10 4.2.7.2.686 [id number] 107 [id number] [facility] 2023-07-01 00:00:00 2023-07-01 00:00:00 Letter (Out) [facility]ORD[facility] CHILD [facility] 1..840.114 350.1.13.10 4.2.7.2.686 [id number] 107 [id number] [facility] 2023-06-30 15:00:00 2023-06-30 15:00:00 Outpatient R TAWNYA GAN [facility] [id number] [facility] 2023-06-23 12:50:00 2023-06-23 14:31:22 Outpatient R BRONWYN WELLINGTON [facility] [id number] [facility] 2023-06-23 12:50:00 2023-06-23 14:31:22 Office Visit Bronwyn Wellington [facility] ..840.114 350.1.13.10 4.2.7.2.686 [id number] [facility] 2023-06-23 00:00:00 2023-06-23 00:00:00 Patient Secure MsBronwyn Edwards [facility] 1.2.840.114 350.1.13.10 4.2.7.2.686 [id number] [facility] 2023-06-23 00:00:00 2023-06-23 00:00:00 Patient Secure Msg Doctor Unassigned, [place] [facility] 1.2840.114 350.1.13.10 4.2.7.2.686 [id number] [facility] 2023-06-22 08:00:00 2023-06-22 09:11:03 Outpatient R UNRULY TRAN [facility] [id number] [facility] 2023-06-22 08:00:00 2023-06-22 09:11:03 Office Visit Juan Reece Emilio B [facility] 1.840.114 350.1.13.10 4.2.7.2.686 [id number] [id number] [facility] 2023-06-22 00:00:00 2023-06-22 00:00:00 Telephone Bronwyn Wellington [facility] SPECIALTY CARE [facility] 1.2840.114 350.1.13.10 4.2.7.2.686 [id number] [facility] 2023-06-21 18:13:00 2023-06-21 20:19:00 Emergency X JESSICA TORRES [facility] ERT [id number] [facility] 2023-06-21 18:13:00 2023-06-21 20:19:00 Emergency Jessica Torres [facility] 1.2840.114 350.1.13.10 4.2.7.2.686 [id number] [id number] [facility] 2023-06-21 00:00:00 2023-06-21 00:00:00 Patient Secure Msg Thais Marin [facility]ILD[facility] 1.84.114 350.1.13.10 4.2.7.2.686 [id number] [facility] 2023-06-20 00:00:00 2023-06-20 00:00:00 Telephone Thais Marin [facility] MEDICAL OFFICE BUILDING 1.84.114 350.1.13.10 4.2.7.2.686 [id number] 044 [id number] [facility] 2023-06-17 00:00:00 2023-06-17 00:00:00 Patient Secure Msg Thais Marin [facility] MEDICAL OFFICE BUILDING 1.84.114 350.1.13.10 4.2.7.2.686 [id number] [id number] [facility] 2023-06-16 20:00:00 2023-06-16 20:36:02 Outpatient R IRENE MARI [facility] [id number] [facility] 2023-06-16 20:00:00 2023-06-16 20:36:02 Urgent Care Irene Mari Unknown, Attending [facility] MEDICAL OFFICE BUILDING 1.84.114 350.1.13.10 4.2.7.2.686 [id number] [facility] 2023-06-10 10:30:00 2023-06-10 10:30:00 Outpatient R ROMULO CHERRY STRAHIL [facility] [id number] [facility] 2023-06-03 10:00:00 2023-06-03 10:15:00 Cna Ltc Visit [facility] Sleep Lab Romulo Cherry [facility] 1.84.114 350.1.13.10 4.2.7.2.686 [id number] [facility] 2023-06-03 10:00:00 2023-06-03 10:00:00 Outpatient R ROMULO CHERRY STRAAKShahab [facility] [id number] [facility] 2023-06-03 00:00:00 2023-06-03 00:00:00 Orders Only Doctor Unassigned, [place] [facility] 1.2.840.114 350.1.13.10 4.2.7.2.686 [id number] [facility] 2023-06-01 09:00:00 2023-06-01 09:00:00 Outpatient R ROMULO CHERRY STRAAKShahab [facility] [id number] [facility] 2023-05-26 14:00:00 2023-05-26 14:41:13 Outpatient R THAIS MARIN [facility] [id number] [facility] 2023-05-26 14:00:00 2023-05-26 14:41:13 Office Visit Thais Marin [facility] MEDICAL OFFICE BUILDING 1.2.840.114 350.1.13.10 4.2.7.2.686 [id number] [facility] 2023-05-26 00:00:00 2023-05-26 00:00:00 Telephone Thais Marin [facility] 1.2.840.114 350.1.13.10 4.2.7.2.686 [id number] [facility] 2023-05-21 09:00:00 2023-05-21 09:00:00 Outpatient R THAIS MARIN [facility] [id number] [facility] 2023-05-18 13:32:49 2023-05-18 23:59:00 Outpatient R CARLITO MORAN [facility] [id number] [facility] 2023-05-18 13:00:00 2023-05-18 23:59:00 Hospital Encounter Carlito Moran [facility] 1..114 350.1.13.10 4.2.7.2.686 [id number] [facility] 2023-05-10 14:30:00 2023-05-10 15:53:08 Outpatient R CARLITO MORAN [facility] [id number] [facility] 2023-05-10 14:30:00 2023-05-10 15:53:08 Routine Visit Clinic, [facility].114 350.1.13.10 4.2.7.2.686 [id number] [facility] 2023-05-06 11:30:00 2023-05-06 12:05:01 Outpatient R LORENA KIRK [facility] [id number] [facility] 2023-05-06 11:30:00 2023-05-06 12:05:01 Office Visit Lorena Kirk [facility] 1.84.114 350.1.13.10 4.2.7.2.686 [id number] [facility] 2023-05-06 00:00:00 2023-05-06 00:00:00 Letter (Out) Lorena Kirk [facility] 1.84.114 350.1.13.10 4.2.7.2.686 [id number] [facility] 2023-05-04 00:00:00 2023-05-04 00:00:00 Patient Secure Msg Doctor Unassigned, [place] [facility] 1.2114 350.1.13.10 4.2.7.2.686 [id number] [facility] 2023-05-03 00:00:00 2023-05-03 00:00:00 Transition of Care Albino Shy [facility] 1.0.114 350.1.13.10 4.2.7.2.686 [id number] [facility] 2023-04-26 05:34:00 2023-05-01 17:08:00 Inpatient R LORENA KIRK [facility] [id number] [facility] 2023-04-26 05:34:00 2023-05-01 17:08:00 Hospital Encounter Mackenzie Bacavelorraine Moran, Carlito Kirk, Lorena Mari [facility] 1.114 350.1.13.10 4.2.7.2.686 [id number] [facility] 2023-04-23 16:00:00 2023-04-23 17:14:36 Outpatient R THAIS MARIN [facility] [id number] [facility] 2023-04-23 16:00:00 2023-04-23 17:14:36 Office Visit Thais Marin [facility] 1.114 350.1.13.10 4.2.7.2.686 [id number] [facility] 2023-04-14 00:00:00 2023-04-14 00:00:00 Patient Secure Msg Umaña-OrJose rodgers [facility] 1..114 350.1.13.10 4.2.7.2.686 [id number] [facility] 2023-04-14 00:00:00 2023-04-14 00:00:00 Patient Secure Msg Doctor Unassigned, [place] [facility] 1.284114 350.1.13.10 4.2.7.2.686 [id number] [facility] 2023-04-12 00:00:00 2023-04-12 00:00:00 Patient Secure Msg Doctor Unassigned, [place] [facility] 1..114 350.1.13.10 4.2.7.2.686 [id number] [facility] 2023-04-09 10:30:00 2023-04-09 10:45:00 Cna Ltc Visit Pcp-Lab Ludy Bridges [facility] 1..114 350.1.13.10 4.2.7.2.686 [id number] [facility] 2023-04-09 08:30:00 2023-04-09 10:17:59 Outpatient R BLANQUITA LUDY [facility] [id number] [facility] 2023-04-09 08:30:00 2023-04-09 10:17:59 Office Visit Jose Cardona Vijaya Laxmi [facility] 1..114 350.1.13.10 4.2.7.2.686 [id number] [id number] [facility] 2023-04-09 00:00:00 2023-04-09 00:00:00 Letter (Out) Jose Cardona [facility] 1..114 350.1.13.10 4.2.7.2.686 [id number] [facility] 2023-04-08 00:00:00 2023-04-08 00:00:00 Telephone Thais Marin [facility] HERLINDA HOU?GERARDO [facility] 1.84.114 350.1.13.10 4.2.7.2.686 [id number] [facility] 2023-04-08 00:00:00 2023-04-08 00:00:00 Patient Secure Msg Doctor Unassigned, Big Arm [facility]?GERARDO [facility] 1.84.114 350.1.13.10 4.2.7.2.686 [id number] [facility] 2023-04-07 14:15:00 2023-04-07 15:42:31 Cna Ltc Visit Lab, Ang - Db Thais Marin [facility]?GERARDO [facility] 1.114 350.1.13.10 4.2.7.2.686 [id number] [facility] 2023-04-07 13:30:00 2023-04-07 14:10:07 Outpatient R THAIS MARIN [facility] [id number] [facility] 2023-04-07 13:30:00 2023-04-07 14:10:07 [facility] 1.84.114 350.1.13.10 4.2.7.2.686 [id number] [facility] 2023-04-05 13:15:00 2023-04-05 15:10:25 Outpatient R BANDAR BACA [facility] [id number] [facility] 2023-04-05 13:15:00 2023-04-05 15:10:25 Office Visit Pgy2 BelhavenBandar [facility] 1..114 350.1.13.10 4.2.7.2.686 [id number] [facility] 2023-03-23 13:00:00 2023-03-23 13:00:00 Outpatient R [facility] [id number] [facility] 2023-03-23 00:00:00 2023-03-23 00:00:00 Telephone Alissa Leon [facility] 1..114 350.1.13.10 4.2.7.2.686 [id number] [facility] 2023-03-12 00:00:00 2023-03-12 00:00:00 Telephone Tawana Jean VTCHERYL PRODUCT INSPECTION COORDINATOR [facility] MATERNAL & CHILD [facility] 1.840.114 350.1.13.10 4.2.7.2.686 [id number] [facility] 2023-02-05 09:00:00 2023-02-05 09:00:00 Outpatient R TAWANA JEAN [facility] [id number] [facility] 2023-02-04 11:00:00 2023-02-04 11:00:00 Outpatient R KEVIN PELLETIER CHERYAL [facility] [id number] [facility] 2023-02-01 10:15:00 2023-02-01 14:26:48 Outpatient R BANDAR BACA [facility] [id number] [facility] 2023-02-01 10:15:00 2023-02-01 14:26:48 Telemedici ne Visit Trimester, [facility] Res-1st Bandar Baca [facility] .840.114 350.1.13.10 4.2.7.2.686 [id number] [facility] 2023-01-26 16:00:00 2023-01-26 16:00:00 Outpatient R KEVIN PELLETIER CHERYAL [facility] [id number] [facility] 2023-01-26 00:00:00 2023-01-26 00:00:00 Patient Secure Msg Tawana Jean [facility] PRODUCT INSPECTION COORDINATOR [facility]NAL & CHILD [facility] 1.840.114 350.1.13.10 4.2.7.2.686 [id number] [facility] 2023-01-25 20:52:00 2023-01-25 23:28:00 Emergency X GAURAV JOHN [facility] ERT [id number] [facility] 2023-01-25 20:52:00 2023-01-25 23:28:00 Emergency Gaurav John [facility] 1.840.114 350.1.13.10 4.2.7.2.686 [id number] [facility] 2023-01-18 14:39:00 2023-01-18 16:33:00 Emergency X DEB BENAVIDEZ [facility] ERT [id number] [facility] 2023-01-18 14:39:00 2023-01-18 16:33:00 Emergency Deb Benavidez [facility] 1.840.114 350.1.13.10 4.2.7.2.686 [id number] [id number] [facility] 2023-01-18 09:30:00 2023-01-18 11:22:09 Outpatient R BANDAR BACA [facility] [id number] [facility] 2023-01-18 09:30:00 2023-01-18 11:22:09 Routine Visit Trimester, [facility] Res-1st Bandar Baca [facility] 1..114 350.1.13.10 4.2.7.2.686 [id number] [facility] 2023-01-14 00:00:00 2023-01-14 00:00:00 Patient Secure Msg Mariajose Ramsey [facility] 1..114 350.1.13.10 4.2.7.2.686 [id number] [facility] 2023-01-08 10:30:00 2023-01-09 17:30:00 Outpatient X MARIAJOSE RAMSEY VTCHERYL SAIMA [id number] [facility] 2023-01-08 10:30:00 2023-01-09 17:30:00 Emergency Clary Richmond Vivian L [facility] 1.2.840.114 350.1.13.10 4.2.7.2.686 [id number] [id number] [facility] 2023-01-08 20:03:18 2023-01-08 20:03:18 Anesthesia Event Ese Puga Fernando [facility] 1.2840.114 350.1.13.10 4.2.7.2.686 [id number] [facility] 2023-01-08 17:45:00 2023-01-08 19:13:00 Surgery Mariajose Ramsey [facility] 1.2840.114 350.1.13.10 4.2.7.2.686 [id number] [facility] 2023-01-08 10:30:00 2023-01-08 10:30:00 Outpatient PETE CONNOR [facility] [id number] [facility] 2023-01-04 12:21:39 2023-01-04 23:59:00 [facility] 1.20.114 350.1.13.10 4.2.7.2.686 [id number] [facility] 2023-01-04 08:30:00 2023-01-04 11:08:47 Outpatient P BANDAR BACA [facility] [id number] [facility] 2023-01-04 08:30:00 2023-01-04 11:08:47 Routine Visit Trimester, [facility] Res-1st [facility] 1.2840.114 350.1.13.10 4.2.7.2.686 [id number] [facility] 2023-01-04 10:45:00 2023-01-04 11:00:00 Cna Ltc Visit [facility] Bandar Baca [facility] 1..114 350.1.13.10 4.2.7.2.686 [id number] [facility] 2023-01-01 22:42:00 2023-01-02 01:04:00 Emergency X GAURAV JOHN [facility] ERT [id number] [facility] 2023-01-01 22:42:00 2023-01-02 01:04:00 Emergency Gaurav John J [facility] 1.84.114 350.1.13.10 4.2.7.2.686 [id number] [facility] 2023-01-01 16:00:00 2023-01-01 16:47:46 Outpatient R WILBUR [facility]SON [facility] [id number] [facility] 2023-01-01 16:00:00 2023-01-01 16:47:46 Cna Ltc [facility] COORDIN[facility] MATERNAL & CHILD [facility] 1.840.114 350.1.13.10 4.2.7.2.686 [id number] [facility] 2023-01-01 15:30:00 2023-01-01 16:00:00 Cna Ltc Visit 1, [facility] Room [facility] PRODUCT INSPECTION COORDINATOR [facility]NAL & CHILD [facility] 1.840.114 350.1.13.10 4.2.7.2.686 [id number] [facility] 2023-01-01 00:00:00 2023-01-01 00:00:00 Patient Secure Msg Doctor Unassigned, Big Arm [facility] 1.840.114 350.1.13.10 4.2.7.2.686 [id number] [facility] 2022-12-21 10:30:00 2022-12-21 11:40:15 Outpatient R [facility] [id number] [facility] 2022-12-21 10:30:00 2022-12-21 11:40:15 Routine Visit Tawana Jean [facility] PRODUCT INSPECTION COORDINATOR [facility] MATERNAL & CHILD [facility] 1.840.114 350.1.13.10 4.2.7.2.686 [id number] [facility] 2022-12-21 10:30:00 2022-12-21 10:30:00 Outpatient R PHYLLISMarshall [facility] [id number] [facility] 2022-12-21 00:00:00 2022-12-21 00:00:00 Orders Only Doctor Unassigned, Big Arm [facility] 1.840.114 350.1.13.10 4.2.7.2.686 [id number] [facility] 2022-12-18 09:30:00 2022-12-18 09:30:00 Outpatient PETE CONNOR [facility] [id number] [facility] 2022-12-17 04:15:00 2022-12-17 09:43:00 Emergency EM Saad Valdovinos [facility] [id number] 40 [facility] 2022-12-17 00:00:00 2022-12-17 00:00:00 Patient Secure Msg Pete Owens [facility] PRODUCT INSPECTION COORDINATOR [facility] MATERNAL & CHILD [facility] 1.840.114 350.1.13.10 4.2.7.2.686 [id number] [facility] 2022-12-14 00:00:00 2022-12-14 00:00:00 Telephone Chandu Owenschris Piedra [facility] PRODUCT INSPECTION COORDINATOR [facility] & CHILD [facility] 1.2.840.114 350.1.13.10 4.2.7.2.686 [id number] 107 [id number] [facility] 2022-12-12 00:00:00 2022-12-12 00:00:00 Case Management Tawana Jean [facility] PRODUCT INSPECTION COORDINATOR [facility] & CHILD [facility] 1.2.840.114 350.1.13.10 4.2.7.2.686 [id number] [facility] 2022-12-12 00:00:00 2022-12-12 00:00:00 Patient Secure Msg Pete Owens Dorothea [facility] PRODUCT INSPECTION COORDINATOR [facility] CHILD [facility] 1.2.840.114 350.1.13.10 4.2.7.2.686 [id number] 107 [id number] [facility] 2022-12-11 10:00:00 2022-12-11 12:03:06 Outpatient R PETE OWENS [facility] [id number] [facility] 2022-12-11 10:00:00 2022-12-11 12:03:06 Initial Visit Pete Owens [facility] PRODUCT INSPECTION COORDINATOR [facility] & CHILD [facility] 1.2.840.114 350.1.13.10 4.2.7.2.686 [id number] [facility] 2022-12-09 10:45:00 2022-12-09 12:04:26 Outpatient R TAWANA JEAN [facility] [id number] [facility] 2022-12-09 10:45:00 2022-12-09 12:04:26 Office Visit Tawana Jean [facility] PRODUCT INSPECTION COORDINATOR [facility] & CHILD [facility] 1.2.840.114 350.1.13.10 4.2.7.2.686 [id number] [facility] 2022-12-09 00:00:00 2022-12-09 00:00:00 Orders Only Doctor Unassigned, Big Arm [facility] 1.114 350.1.13.10 4.2.7.2.686 [id number] [facility] 2022-12-07 00:00:00 2022-12-07 00:00:00 Patient Secure Msg Tawana Jean [facility] PRODUCT INSPECTION COORDINATOR [facility]NAL & CHILD [facility] 1..114 350.1.13.10 4.2.7.2.686 [id number] [facility] 2022-12-03 00:00:00 2022-12-03 00:00:00 Telephone Pcp, Patient Does Not Have A [facility] 1.114 350.1.13.10 4.2.7.2.686 [id number] [facility] 2022-11-27 08:45:00 2022-11-27 08:45:00 Outpatient PETE CONNOR [facility] [id number] [facility] 2022-11-26 13:45:00 2022-11-26 13:45:00 Outpatient TAWANA LLANOS [facility] [id number] [facility] 2022-11-26 10:45:00 2022-11-26 10:45:00 Outpatient R TAWANA JEAN [facility] [id number] [facility] 2022-11-12 15:00:00 2022-11-12 15:39:24 Outpatient TAWANA LLANOS [facility] [id number] [facility] 2022-11-12 15:00:00 2022-11-12 15:39:24 Office Visit Tawana Jean [facility] PRODUCT INSPECTION COORDINATOR [facility] & CHILD [facility] 1..114 350.1.13.10 4.2.7.2.686 [id number] 107 [id number] [facility] 2022-11-11 13:00:00 2022-11-11 13:00:00 Outpatient R [facility] [id number] [facility] 2022-11-11 00:00:00 2022-11-11 00:00:00 Telephone [facility] 1.840.114 350.1.13.10 4.2.7.2.686 [id number] [facility] 2022-10-28 00:00:00 2022-10-28 00:00:00 Telephone [facility] 1.2840.114 350.1.13.10 4.2.7.2.686 [id number] [facility] 2022-10-22 15:00:00 2022-10-22 15:40:25 Outpatient TAWANA LLANOS [facility] [id number] [facility] 2022-10-22 15:00:00 2022-10-22 15:40:25 Routine Visit Tawana Jean [facility] PRODUCT INSPECTION COORDINATOR [facility]NAL & [facility] 1.840.114 350.1.13.10 4.2.7.2.686 [id number] [facility] 2022-10-22 00:00:00 2022-10-22 00:00:00 Orders Only Doctor Unassigned, Big Arm [facility] 1.840.114 350.1.13.10 4.2.7.2.686 [id number] [facility] 2022-10-20 10:45:00 2022-10-20 10:45:00 Outpatient TAWANA LLANOS [facility] [id number] [facility] 2022-10-13 08:45:00 2022-10-13 08:45:00 Outpatient TAWANA LLANOS [facility] [id number] [facility] 2022-09-29 09:15:00 2022-09-29 09:15:00 Outpatient SANDHYA ASKEW KARREN [facility] [id number] [facility] 2022-09-29 00:00:00 2022-09-29 00:00:00 Patient Secure Msg Fara altamirano [facility]ian [facility] 1.840.114 350.1.13.10 4.2.7.2.686 [id number] [facility] 2022-09-26 17:36:00 2022-09-28 13:20:00 Outpatient PAIGE AGRAWAL [facility] OBF [id number] [facility] 2022-09-26 17:36:00 2022-09-28 13:20:00 Emergency Drever, Paige Humphrey Vien Cam [facility] 1.0.114 350.1.13.10 4.2.7.2.686 [id number] [facility] 2022-09-28 13:15:00 2022-09-28 13:15:00 Outpatient TAWANA LLANOS [facility] [id number] [facility] 2022-09-28 00:00:00 2022-09-28 00:00:00 Patient Secure Phyllismarshall Tawana Rosario [facility] PRODUCT INSPECTION COORDINATOR [facility] MATERNAL & CHILD [facility] 1..114 350.1.13.10 4.2.7.2.686 [id number] 107 [id number] [facility] 2022-09-27 19:45:00 2022-09-27 21:10:00 Surgery Fara altamirano Gillian [facility] 1..114 350.1.13.10 4.2.7.2.686 [id number] [facility] 2022-09-23 22:37:00 2022-09-24 02:17:00 Emergency X ARIANA CASTRO [facility] ERT [id number] [facility] 2022-09-23 22:37:00 2022-09-24 02:17:00 Emergency Ariana Castro S [facility] 1.2.840.114 350.1.13.10 4.2.7.2.686 [id number] [facility] 2022-09-24 00:00:00 2022-09-24 00:00:00 Case Management Tawana Jean [facility] PRODUCT INSPECTION COORDINATOR [facility] & CHILD [facility] 1.2.840.114 350.1.13.10 4.2.7.2.686 [id number] 107 [id number] [facility] 2022-09-24 00:00:00 2022-09-24 00:00:00 Patient Secure Msg Tawana Jean [facility] PRODUCT INSPECTION COORDINATOR [facility] & CHILD [facility] 1.2.840.114 350.1.13.10 4.2.7.2.686 [id number] 107 [id number] [facility] 2022-09-23 16:00:00 2022-09-23 16:48:21 Outpatient R TAWANA JEAN [facility] [id number] [facility] 2022-09-23 16:00:00 2022-09-23 16:48:21 Routine Visit Tawana Jean [facility] PRODUCT INSPECTION COORDINATOR [facility] & CHILD [facility] 1.840.114 350.1.13.10 4.2.7.2.686 [id number] [facility] 2022-09-23 12:45:00 2022-09-23 12:45:00 Outpatient R TAWANA JEAN [facility] [id number] [facility] 2022-09-17 16:00:00 2022-09-17 16:00:00 Outpatient R [facility] [id number] [facility] 2022-09-10 15:45:00 2022-09-10 15:45:00 Outpatient R TAWANA JEAN [facility] [id number] [facility] 2022-09-08 13:45:00 2022-09-08 13:45:00 Outpatient R TAWANA JEAN [facility] [id number] [facility] 2022-08-28 00:00:00 2022-08-28 00:00:00 Patient Secure Tawana Ortiz [facility] PRODUCT INSPECTION COORDINATOR [facility] & CHILD [facility] 1.2.840.114 350.1.13.10 4.2.7.2.686 [id number] 107 [id number] [facility] 2022-08-27 00:00:00 2022-08-27 00:00:00 Patient Secure Tawana Ortiz [facility] PRODUCT INSPECTION COORDINATOR [facility] & CHILD [facility] 1.2.840.114 350.1.13.10 4.2.7.2.686 [id number] 107 [id number] [facility] 2022-08-13 00:00:00 2022-08-13 00:00:00 Case Management Tawana Jean [facility] PRODUCT [facility] 1.2.840.114 350.1.13.10 4.2.7.2.686 [id number] 107 [id number] [facility] 2022-08-13 00:00:00 2022-08-13 00:00:00 Patient Secure Tawana Ortiz [facility] PRODUCT INSPECTION COORDINATOR [facility] CHILD [facility] 1.2.840.114 350.1.13.10 4.2.7.2.686 [id number] 107 [id number] [facility] 2022-08-12 07:45:00 2022-08-12 08:09:39 Cna Ltc Visit Lab, Tawana Saxena [facility] PRODUCT INSPECTION COORDINATOR [facility] MATERNAL & CHILD [facility] 1..840.114 350.1.13.10 4.2.7.2.686 [id number] 107 [id number] [facility] 2022-08-12 07:45:00 2022-08-12 07:45:00 Outpatient TAWANA LLANOS [facility] [id number] [facility] 2022-08-11 14:30:00 2022-08-11 16:26:19 Outpatient TAWANA LLANOS [facility] [id number] [facility] 2022-08-11 14:30:00 2022-08-11 16:26:19 Initial Visit Provider, Tawana Metcalf [facility] PRODUCT INSPECTION COORDINATOR [facility] MATER[facility] & CHILD [facility] 1..840.114 350.1.13.10 4.2.7.2.686 [id number] 107 [id number] [facility] 2022-08-11 00:00:00 2022-08-11 00:00:00 Orders Only Doctor Unassigned, Big Arm [facility] 1..840.114 350.1.13.10 4.2.7.2.686 [id number] [facility] 2022-07-14 08:15:00 2022-07-14 08:15:00 Outpatient TAWANA LLANOS [facility] [id number] [facility] 2022-05-23 10:30:00 2022-05-23 10:30:00 Outpatient R [facility] [id number] [facility] 2022-05-23 10:30:00 2022-05-23 10:30:00 Outpatient CM ANN [facility] [id number] [facility] 2022-05-01 08:00:00 2022-05-01 08:00:00 Outpatient TAWANA LLANOS [facility] [id number] [facility] 2022-04-30 07:45:00 2022-04-30 07:45:00 Outpatient WILBERT MUNGUIA [facility] [id number] [facility] 2022-04-27 02:06:00 2022-04-27 02:53:00 Emergency X WINIFRED JAMES [facility] ERT [id number] [facility] 2022-04-27 02:06:00 2022-04-27 02:53:00 Emergency Winifred James G [facility] 1..114 350.1.13.10 4.2.7.2.686 [id number] [facility] 2022-04-27 00:00:00 2022-04-27 00:00:00 Orders Only Doctor Unassigned, Big Arm [facility] 1.114 350.1.13.10 4.2.7.2.686 [id number] [facility] 2022-04-18 10:45:00 2022-04-18 11:50:36 Outpatient SULEIMAN SIMS [facility] [id number] [facility] 2022-04-18 10:45:00 2022-04-18 11:50:36 Office Visit Provider, Ang-Rmchp Suleiman Sebastian [facility] PRODUCT INSPECTION COORDINATOR [facility] 1..114 350.1.13.10 4.2.7.2.686 [id number] 107 [id number] [facility] 2022-04-17 00:00:00 2022-04-17 00:00:00 Telephone Pete Owens [facility] PRODUCT INSPECTION COORDINATOR [facility]ILD [facility] 1..114 350.1.13.10 4.2.7.2.686 [id number] 107 [id number] [facility] 2022-04-16 12:45:00 2022-04-16 12:45:00 Outpatient R TAWANA JEAN [facility] [id number] [facility] 2022-04-03 00:00:00 2022-04-03 00:00:00 Orders Only Doctor Unassigned, [place] [facility] 1..114 350.1.13.10 4.2.7.2.686 [id number] [facility] 2022-04-02 12:45:00 2022-04-02 14:18:13 Outpatient LOUISE LANGSTON [facility] [id number] [facility] 2022-04-02 12:45:00 2022-04-02 14:18:13 Office Visit Provider, Wilbert Sotomayor Kathryn C [facility] PRODUCT INSPECTION COORDINATOR [facility] 1..114 350.1.13.10 4.2.7.2.686 [id number] 107 [id number] [facility] 2022-04-01 09:00:00 2022-04-01 09:00:00 Outpatient WILBERT MUNGUIA [facility] [id number] [facility] 2022-01-21 13:15:00 2022-01-21 13:15:00 Outpatient R PETE OWENS [facility] [id number] [facility] 2022-01-16 00:00:00 2022-01-16 00:00:00 Jamie Carroll [facility] PRODUCT INSPECTION COORDINATOR [facility] 1..114 350.1.13.10 4.2.7.2.686 [id number] 107 [id number] [facility] 2022-01-15 00:00:00 2022-01-15 00:00:00 Patient Secure Msg Doctor Unassigned, [place] [facility] 1..114 350.1.13.10 4.2.7.2.686 [id number] [facility] 2022-01-14 00:00:00 2022-01-14 00:00:00 Outpatient GUY MEJIADOMINICK [id number] Jacinta [facility] 2022-01-01 00:00:00 2022-01-01 00:00:00 Patient Secure Msg Wilbert Willoughby [facility] PRODUCT INSPECTION COORDINATOR [facility] 1.2.840.114 350.1.13.10 4.2.7.2.686 [id number] 107 [id number] [facility] 2021-12-31 00:00:00 2021-12-31 00:00:00 Telephone Jamie Wall [facility] PRODUCT INSPECTION COORDINATOR [facility] 1.2.840.114 350.1.13.10 4.2.7.2.686 [id number] 107 [id number] [facility] 2021-12-31 00:00:00 2021-12-31 00:00:00 Telephone Wilbert Willoughby [facility] PRODUCT INSPECTION COORDINATOR [facility] 1.2.840.114 350.1.13.10 4.2.7.2.686 [id number] [facility] 2021-12-30 14:30:00 2021-12-30 16:19:20 Office Visit Provider, RadhaRmchp Jamie James [facility] PRODUCT INSPECTION COORDINATOR [facility] & CHILD [facility] 1.2.840.114 350.1.13.10 4.2.7.2.686 [id number] 107 [id number] [facility] 2021-12-30 14:30:00 2021-12-30 16:19:20 Outpatient JAMIE GAYTAN EMILY [facility] [id number] [facility] 2021-12-30 14:30:00 2021-12-30 14:30:00 Outpatient JAMIE GAYTAN EMILY [facility] [id number] [facility] 2021-12-18 09:45:00 2021-12-18 09:45:00 Outpatient Alannah WILLOUGHBYWILBERT [facility] [id number] [facility] 2021-12-03 13:00:00 2021-12-03 13:00:00 Outpatient Alannah WILBERT WILLOUGHBY [facility] [id number] [facility] 2021-12-02 00:00:00 2021-12-02 00:00:00 Patient Secure Msdereck Wilbert Willoughby [facility] PRODUCT INSPECTION COORDINATOR [facility] 1.2.840.114 350.1.13.10 4.2.7.2.686 [id number] 107 [id number] [facility] 2021-12-02 00:00:00 2021-12-02 00:00:00 Telephone Wilbert Willoughby [facility] PRODUCT INSPECTION COORDINATOR [facility] & CHILD [facility] 1.2.840.114 350.1.13.10 4.2.7.2.686 [id number] 107 [id number] [facility] 2021-12-01 13:30:00 2021-12-01 13:30:00 Outpatient Alannah WILBERT WILLOUGHBY [facility] [id number] [facility] 2021-12-01 13:30:00 2021-12-01 13:30:00 Outpatient Alannah WILLOUGHBYWILBERT [facility] [id number] [facility] 2021-11-13 00:00:00 2021-11-13 00:00:00 Telephone Wilbert Willoughby [facility] PRODUCT INSPECTION COORDINATOR [facility] & CHILD [facility] 1.2.840.114 350.1.13.10 4.2.7.2.686 [id number] 107 [id number] [facility] 2021-11-11 14:45:00 2021-11-11 16:08:19 Outpatient Alannah SAMY WILLOUGHBYMarlene [facility] [id number] [facility] 2021-11-11 14:45:00 2021-11-11 16:08:19 Office Visit Wilbert Willoughby [facility] PRODUCT INSPECTION COORDINATOR [facility] & CHILD [facility] 1.2.840.114 350.1.13.10 4.2.7.2.686 [id number] 107 [id number] [facility] 2021-11-11 00:00:00 2021-11-11 00:00:00 Orders Only Doctor Unassigned, [place] [facility] 1..840.114 350.1.13.10 4.2.7.2.686 [id number] [facility] 2021-04-07 00:00:00 2021-04-07 00:00:00 Patient Secure Msg Samy Willoughbymarlene [facility] PRODUCT INSPECTION COORDINATOR [facility] CHILD [facility] 1..840.114 350.1.13.10 4.2.7.2.686 [id number] 107 [id number] [facility] 2021-03-21 14:45:00 2021-03-21 14:45:00 Outpatient PETE CONNOR [facility] [id number] [facility] 2021-03-20 00:00:00 2021-03-20 00:00:00 Telephone Pete Owens [facility] PRODUCT INSPECTION COORDINATOR [facility] & CHILD [facility] 1..840.114 350.1.13.10 4.2.7.2.686 [id number] 107 [id number] [facility] 2021-03-19 14:45:00 2021-03-19 14:45:00 Outpatient JAMIE HOPPER [facility] [id number] [facility] 2021-03-18 15:15:00 2021-03-18 15:15:00 Outpatient JAMIE HOPPER [facility] [id number] [facility] 2021-03-16 22:39:00 2021-03-17 01:20:00 Emergency Sam Chase [facility] 1.2.840.114 350.1.13.10 4.2.7.2.686 [id number] [facility] 2021-02-20 00:00:00 2021-02-20 00:00:00 Telephone Lara Atkinson [facility] 1.2.840.114 350.1.13.10 4.2.7.2.686 [id number] [facility] 2021-02-19 02:37:00 2021-02-19 03:44:00 Emergency Paige Melissa [facility] 1.2.840.114 350.1.13.10 4.2.7.2.686 [id number] [facility] 2020-09-10 00:00:00 2020-09-10 00:00:00 Patient Outreach Juan Marshall [facility] 1.2.840.114 350.1.13.10 4.2.7.2.686 [id number] 2020-09-10 00:00:00 2020-09-10 00:00:00 Patient Outreach Juan Marshall Faustino [facility] 1.2.840.114 350.1.13.10 4.2.7.2.686 [id number] [facility] 2020-08-27 10:30:00 2020-08-27 10:30:00 Outpatient WILBERT MUNGUIA [facility] [id number] [facility] 2020-08-26 13:30:00 2020-08-26 13:30:00 Outpatient R [facility] [id number] [facility] 2020-07-11 13:15:00 2020-07-11 13:15:00 Outpatient R WILBERT WILLOUGHBY [facility] [id number] [facility] 2020-06-27 15:21:42 2020-06-27 16:19:38 Office Visit Wilbert Willoughby [facility] PRODUCT INSPECTION COORDINATOR [facility] & CHILD [facility] 1.2.840.114 350.1.13.10 4.2.7.2.686 [id number] 107 [id number] 2020-06-27 15:21:42 2020-06-27 16:19:38 Office Visit Wilbert Willoughby [facility] PRODUCT INSPECTION COORDINATOR [facility] & CHILD [facility] 1.2.840.114 350.1.13.10 4.2.7.2.686 [id number] 107 [id number] [facility] 2020-06-27 15:30:00 2020-06-27 15:30:00 [facility] [id number] [facility] 2020-06-05 15:15:00 2020-06-05 15:15:00 Outpatient WILBERT MUNGUIA [facility] [id number] [facility] 2020-03-29 00:00:00 2020-03-29 00:00:00 Patient Secure Msg Doctor Unassigned, [place] [facility] 1.2.840.114 350.1.13.10 4.2.7.2.686 [id number] [facility] 2020-03-27 19:22:00 2020-03-28 00:39:00 Emergency Sam Chase [facility] 1.2.840.114 350.1.13.10 4.2.7.2.686 [id number] [facility] 2019-12-05 01:22:11 2019-12-05 03:48:00 Emergency Radha Hawkins [facility] 1.2.840.114 350.1.13.10 4.2.7.2.686 [id number] [facility] 2019-12-05 01:22:11 2019-12-05 03:48:00 Emergency X RADHA HAWKINS [facility] ERT [id number] [facility] 2019-11-15 19:21:57 2019-11-16 00:00:00 Emergency Sam Chase [facility] 1.2.840.114 350.1.13.10 4.2.7.2.686 [id number] [facility] 2019-11-15 19:21:57 2019-11-16 00:00:00 Emergency X Sam CHASE [facility] ERT [id number] [facility] 2019-10-19 04:35:17 2019-10-19 06:17:00 Emergency Luisa Ma [facility] 1.2.840.114 350.1.13.10 4.2.7.2.686 [id number] [facility] 2019-10-19 04:35:17 2019-10-19 06:17:00 Emergency X LUISA MA [facility] ERT [id number] [facility] 2019-08-31 03:53:07 2019-08-31 05:03:00 Emergency Jessica Bob [facility] 1.2.840.114 350.1.13.10 4.2.7.2.686 [id number] [facility] 2019-08-31 03:53:07 2019-08-31 05:03:00 Emergency X JESSICA BOB [facility] ERT [id number] [facility] 2019-06-09 16:17:18 2019-06-09 19:21:00 Emergency X MANAN PÉREZ III [facility] ERT [id number] [facility] 2019-01-29 15:09:14 2019-01-29 18:22:00 Emergency Manan Pérez [facility] 1.2.840.114 350.1.13.10 4.2.7.2.686 [id number] [facility] 2019-01-29 00:00:00 2019-01-29 00:00:00 Orders Only Doctor Unassigned, [place] [facility] 1.2.840.114 350.1.13.10 4.2.7.2.686 [id number] [facility] Results Test Description Test Time Test Comments Results Resul t Comments Source XR KUB 2024-05-10 00:52:53 EXAM: XR KUB HISTORY: 28 years-old Female; abd pain post colonoscopy Upright. TECHNIQUE: Frontal views of the abdomen and pelvis COMPARISON: CT abdomen pelvis 01/25/2023, CT abdomen [id number] 17:32:00* Test Item Value Reference Range Interpretation Comme nts POCT PREG (test code = 1605) Negative On board controls acceptable with C Line (test code = 3574) Yes POCT PREG LOT # (test code = 3575) POCT PREG TEST DATE ( test code = 3576) Lab Interpretation (test cod e = 76730-3) Normal [facility] MOLECULAR [id number] 21:52:51* Test Item Value Reference Range Interpretation Comme nts POCT Molecular Strep (test c ode = 98140-2) Negative Negative Lab Interpretation (test cod e = 52153-6) Normal [facility] SARS-COV-2 ANTIGEN (BINAX NOW)2024-02-17 21:42:00* Test Item Value Reference Range Interpretation Comme nts POCT SARS-COV-2 ANTIGEN (test code = 04302-3) Not Detected Not Detected, See Comment On board controls acceptable with C Line (test code = 3574) Yes Lab Interpretation (test code = 61779-5) Normal [facility] [id number] 14:17:00* Test Item Value Reference Range Interpretation Comme nts POCT PREG (test code = 1605) Negative On board controls acceptable with C Line (test code = 3574) Yes POCT PREG LOT # (test code = 3575) POCT PREG TEST DATE ( test code = 3576) [facility][id number] 18:24:24 Ordered by an unspecified provider.[facility]/[id number] 18:24:24Ordered by an unspecified provider.[facility]/[id number] 18:24:24Ordered by an unspecified provider.[facility] Test 2023-08-20 19:56:00* Test Item Value Reference Range Interpretation Comme nts POCT PREG (test code = 1605) Negative On board controls acceptable with C Line (test code = 3574) Yes POCT PREG LOT # (test code = 3575) POCT PREG TEST DATE ( test code = 3576) [facility] [id number] 19:56:00* Test Item Value Reference Range Interpretation Comme nts POCT PREG (test code = 1605) Negative On board controls acceptable with C Line (test code = 3574) Yes POCT PREG LOT # (test code = 3575) POCT PREG TEST DATE ( test code = 3576) [facility] [id number] 22:07:50* Test Item Value Reference Range Interpretation Comme nts BETA HCG (test code = 9040577542) 7.37 See_Comment [Automated messa ge] The system which generated this result transmitted reference range: Non- female and male patients: <5 mIU/mL. The reference range was not used to interpret this result as normal/abnormal. MARCELINO (test code = MARCELINO) Gestational Age ?Range (mIU/mL) 1-10 ?Weeks ?53-56449887-58 Weeks ?82746-81174689-46 Weeks ?5952-67390041-88 Weeks ?2338-207000 Biotin has been reported to cause a negative bias, interpret results relative to patient's use of biotin. [facility]. METABOLIC PANEL (53392)2023-08-13 21:50:11* Test Item Value Reference Range Interpretation Comme nts NA (test code = 6095726880) 139 mmol/L 135-145 K (test code = 4161175223) 4.0 mmol/L 3.5-5.0 CL (test code = 5402330735) 108 mmol/L 98-108 CO2 TOTAL (test code = 2900503847) 25 mmol/L 23-31 AGAP (test code = 5502181962) 6 2-16 BUN (test code = 9194078537) 11 mg/dL 7-23 GLUCOSE (test code = 2373232931) 93 mg/dL 70-110 CREATININE (test code = 2160-0) 0.61 mg/dL 0.50-1.04 TOTAL BILI (test code = 6135044737) 0.5 mg/dL 0.1-1.1 CALCIUM (test code = 5455903744) 8.7 mg/dL 8.6-10.6 T PROTEIN (test code = 7251797851) 8.1 g/dL 6.3-8.2 ALBUMIN (test code = 1249155409) 4.1 g/dL 3.5-5.0 ALK PHOS (test code = 9266830033) 71 U/L 34-122 ALTv (test code = 1742-6) 18 U/L 5-35 AST(SGOT) (test code = 5305731215) 28 U/L 13-40 eGFR (test code = 80295-5) 124.3 mL/min/1.73m2 CKD-EPI eGFR (20 21). Assuming creatinine has been stable day-to-day for at least three months, the eGFR indicates Category G1 (>= 90 mL/min/1.73 m2) [facility] WITH [id number] 21:38:26* Test Item Value Reference Range Interpretation [...] g/dL 31.6-35.1 L RDW-SD (test code = 60403-6) 49.0 fL 39.0-49.9 RDW-CV (test code = 788-0) 16.7 % 12.0-15.5 H PLT (test code = 777-3) 416 166-358 H MPV (test code = 08239-9) 10.0 fL 9.5-12.9 NRBC/100 WBC (test code = 9972381400) 0.0 0.0-10.0 NRBC x10^3 (test code = 9383514107) See_Comment [Automated messa ge] The system which generated this result transmitted reference range: 10*3/?L. The reference range was not used to interpret this result as normal/abnormal. GRAN MAT (NEUT) % (test code = 770-8) 62.4 % IMM GRAN % (test code = 5334987533) 0.20 % LYMPH % (test code = 736-9) 27.3 % MONO % (test code = 5905-5) 8.1 % EOS % (test code = 713-8) 1.1 % BASO % (test code = 706-2) 0.9 % GRAN MAT x10^3(ANC) (test code = 7913641357) 3.54 10*3/uL 1.88-7.09 IMM GRAN x10^3 (test code = 6587858147) 0.00-0.06 LYMPH x10^3 (test code = 731-0) 1.55 10*3/uL 1.32-3.29 MONO x10^3 (test code = 742-7) 0.46 10*3/uL 0.33-0.92 EOS x10^3 (test code = 711-2) 0.06 10*3/uL 0.03-0.39 BASO x10^3 (test code = 704-7) 0.05 10*3/uL 0.01-0.07 Lab Interpretation (test code = 64675-7) Abnormal [facility] - ONCE [id number] 21:33:00 * Test Item Value Reference Range Interpretation Comme nts ABO & RH (test code = 20) A Positive IAT (test code = 1185) Negative [facility] URINALYSIS W SPECIFIC [id number] 21:39:00* Test Item Value Reference Range Interpretation [...] U APPEAR (test code = 3267) .. [facility] URINALYSIS W SPECIFIC [id number] 21:39:00* Test Item Value Reference Range Interpretation [...] U APPEAR (test code = 3267) .. [facility] [id number] 20:00:41* Test Item Value Reference Range Interpretation Comme nts Case Report (test code = 3318104299) Surgical Pathology ?Case: [id number] ? Authorizing Provider: ?Bandar Baca MD ? Collected: ? 04/26/2023 0816 ?Ordering Location: ? ? [facility] OR ? Received: ?04/26/2023 1015 ? Department ? Pathologist: ? Olga Hearn MD ?Specimen: ? ?ENDOMETRIUM, ENDOMETRIAL CURETTINGS ? Final Diagnosis (test code = 9086644457) b4eylVVkLFZhm2ybQCXumQ FuZzEwMzNcZnRuYmpcdWMx IDdveqGsKLaquRbxBQK3MQ XxUU8tlTdabVk7mWwxJMIt xtU7jXNhSOtms6gfAHU4n4 rnedzyFGZvPIksPx5raTBk lNarBpWoJEStAWi3cA64WB GfxT2haKKhDGj4NCNcqWNc gjZzIxUaIKWlaZMxxOK4DH ZuLP5caiowWSumDBxhFGWy ebO0XJKfqPAbV2WwMVGkZH 0sqmorUVA5OVvwTIVvWNT3 VlGjVJCao4Ekxsd1QtHvrB FyZFxwbGFpblxmczIwXHBh ciBBLiBFTkRPTUVUUklVTS rhU5RNDNKFNGuRSrqsRXDv MUNgVHVgSNESS1eNEaMDDE PTTjQmSU8WI74NEBVLGJ0r cGFyXHBhciBIYXNhbmFpbi TFQcO2eDonZrJhdnOBXMWt biwgTUQgIFxwYXJcZnMyMi ODiVtbMV6fMQCdxyGjcged TUQgIDExLzcvMjAyMyAgMj owMCBQTVxwYXJccGFyZFxm raEwCDItgevyKRE8g4jvmW YxXHNzdGVjZjIyMDAwXGFu k9hfKXKqxPMpTnNsGlJiBb ZuTkhsnQRxAEZvQoDyy8lu u157oNWxx3ceOWJsAkK1lL WoFOTnbRqupav7mHfoGoQw DQNbx1qvgaYpFiTaNCXoIQ PrQJYzqVIcV675DYXhXBvc g1cim4ZrSXGwrYSib9I2GR VXEThaZjBsW840j9rhn4lk afGjjQZ1VECxZEL7DGcicr PqvuU9JZpweAWcRzO4QJxt snVjBGidjmUjucTuAns8PU HdB428MNT3iZojx6pfHYK1 RBSzWUFfQzlbXj5vnTGfY2 12CMPvTNONPBAiyOo6THGi wuIboqPjbEGCf587N697t5 azZYEqohIwgQyQncyjy8ci V867ZDHwvAQlcxVdCaBhBH JgfZYcfZU7BOJbLA7sqsyy ILhaDHkvBMYzovM0UJCxcY EmE0XwQCGzNI1ivcogXHD9 FYedMSWqUMO8AjVrDCHyh2 Cmdcg5ScYucz4aad45YDZ2 z5IjeSmaGUB5TXY8OtOgJw 7pmNSwKTCoAY0xFgIzcRIh JOUelp69xXrtBEhgkkYfrA 3jUuNxXPJmdCQdHDTlCV2c dUNqEYCpqX1xteuqHMYmMo ZlcsnyBLDtbJnvfmXyIq2b wDxiCLJ3IOvyZ1nppV4iFo O3BYbtN8ounS9hCXv9LByz pLW5CUMpzY4fQJ5uvxwhs9 zuDFvgLIqwWMSuufA4sqB4 SGJigXOuZ4VjxD6vZDGuZY 3uchuhh5rhSRL3OOiyOTBg LZO5QvMuAAFoe8Yztvj4Sp Ozm0WueVQyKZfxP38vm998 VHQrmfAoG0rshHJyuuuvlC KyqkgyNMzwrjY4KYGkLVJi YWluXGYxXGZzMjBcbGFuZz EwMzNcaGljaFxmMVxkYmNo MSNyGErlK7lcXvItS5KfTA PeVhPqnXZjCFquvEB9MVGa YXNtj60cpVk9XWSauvzwu0 XaCJQfmEAynBRxuL6chmRt r2gsEEGdMGAaQAVfS2FmOR P1vRDmPMWsxSEvnYO0SV4g vdJkZG1xYSSnDoutyaCllI YmqiTbKKVfQGdnn2uqVY6a PLCxoKzxnU4yvYD1WFMxg1 uucHSyoQXdr9zbi0SpqpDg ZShzKSBtYXkgYXBwZWFyIG 0pCFBynDKvryEsb7B2Ssvo kLGwgikdGxmtniI2CWlgjz keZTYzPUrqI8noVcDoIFRv sUlgLcpsy0MrDPIrSKSdPd hccGFyfX0= Clinical Information (test code = 4111624848) Abnormal uterine bleeding [N93.9] Gross Description (test code = 9944977424) l4tdvNWiONWgtITSRGZ6PM VgSY9poEbfiTg2vGzsNSQc usC7dBIhVHnay7qhBHL7g1 esorAQZtaiWLQgOJ6bNZjf TARqTV4jVuWsZTCvKnSqXO BhcGVydzEyMjQwXHBhcGVy gLK3MXRvJD7etsguINrsAQ pgABXozrM2EAOyuGRxW8Ag WMImTV3ouahjNRY1SXFQMa plYd7oyXAfxEiiRvMlBtKv YXJzZXQwXGZuaWwgQXJpYW l4uD3RYofqPYK6VONAQkhq OnwagAjlw0ZpnZXmQLGvIW xcaWQgNTEwMDAgXFxkYiBP PgSpHeO5WXdnJgS4TnY2OX x4UXLBUEMfUvd2IPL9RtR8 EEr3NNLlPX3tZWnptHSxIY ddNateDOhzD414WLtdRSNf U5GqZ3CrWUrmZbSmTHdrIY LlSNBmLPozLMNrM0SVLFJc XWy1TsJoEAShGDw4UPbhF9 MRURCmSNB6AQK2ASY1EhV8 OTa3GLMPGc2qQGu7QYB3VF E8GOQ9QUc6JcFgRCYhXzOm MCIrOITtGBspvXBqZG9veM cuNPCfMU5CLLKjHFquFQRx PlAeG6ICO8eSWR0gECgrjC JjaFxmczIyXHBhciANClxw SMKhEE4HEREePObrFUe7oo BzENPdFeAeBVNcM82uu3YT i5CyTG3MTDl7igThmbSAWt NwZWNpbWVuIEEgaXMgcmVj DJi1AKCrNxHsb8yeuNAjAV dtTWZ4dSXjIOIqSNSiNWIe OH67F5AdwnMjISuuZUrkpf DyTsVdALXuxtDauDN1oeax bCBjdXJldHRpbmdzIiBhbm MlG89gp2cdyXQih3CaVFK2 ePz6UADdKLGjCEAlQ4wdr9 o8oHHyC2izTGdvhXDwz4Uo hGBhKIWqehqnwDNoYEl8qX YsMZZpAuStbIsfw7OwAVVl ZHkuZX13pzAzMW83PAdvKN 0mFDwvOM5rJVLbSVahSDVd N7ExV5E0ULegOFUhNFSbyR JvnX6zswLwkhFlaDc5NIYe ADG5gFEwfHkmHIInXqhmgZ M1RANdNyAbfcYjo7GjmKx1 hVPfVRsfFFSttG8xsB9aXQ EuXHBhciANClxwYXIgDQpc n6OyLKimtSchRKVfEzJfLB dVKFE3BXTdmzKpcQysNKUS QSAoQVNDUCkNClxlcGljTm BnfLPvShK3ZAEgmNUrEKB7 TJ4qaSaySNXiD4XnQ3Rgaw G2LOYumwTJMjkxVHCmST3M fQ== Disclaimer (test code = 3911570708) i3amiLPiBVDfi7daQHAaiW FuZzEwMzNcZnRuYmpcdWMx DIlcaqFhQBgrw3SuO9MbCo AwMFxhbnNpXGRlZmxhbmcx MAByIXX9vvRlSUAtPWpeCS CySWaqSm4ssAMdeAsvCtHq RUFai1lwxdAQAXjaTkFyT6 90ZYFwJAesj3zyw6YiLYNp pXCee6Q1JYDPqxhpsDh2vN mrD53gy0R9UnsmR2wbLKQa JITaC7OgIO6iGXZgIri8HV Q2HNG0VRTlERQhM1LlMQ0s KUMzwCGhNAe3i7txjOniKY QeUPC0t5wxRSwrpwCnOP9r vi2avUh9r0srcjYuTYVjYY EbqLKGILZoJ8TqrUizKr3t xCm6gQgdLqsxROV1Rlt3XM 6yry49xjj3rEfkVUSksifq ImE6JEieYJJnwudjLHg8AJ xvLZTyyPC2IWYruGRlH8Zo SGOqTR8awgz1HVX2WGudVC FdPkD5PESqmHDwIQXwrNnx CXmfy920CCP9ZmLqTA3kU0 Lzy4F8kD6jaBCkSWRxyINi XkTvZLSbwx3twAGaTRexq5 PzDAP2qsE9sSZefRYfQDSx MV28Qcked3UpMebwx6WnB3 5muSM8SFmuy6qvFP9hBdA0 aeSyODawg9rlzV4gJvS9NO zeXU7xQE1mVPAocE3fqbmo XHBnYnJkcmhlYWRccGdicm PcOt9uqWnwAAZ1MBwmA0nj gG0uIsD8UVuvG9qvsP4gMU k0ZKqjoTQ9ZPWlnG5qJP8r ijkiq2wbIUdpRSkrTCRmyv K4isB2HUZelVJcV3EvqJ0i QETxTI3bsveep1qcUJP6CT zoVXPfVWX0YxYfZLEsm1Ly hlt2LmKgo6DtnOLlPMcsT6 8ru193RTKuxfQeQ6wqgQRq jjtfoWSofbauXAkzbjM2QL ThxgScc6YeQPPpMPE0DRis EHilrBDpOYAorQynx4meY6 RscGFyXHBsYWluXGYxXGZz MjBcbGFuZzEwMzNcaGljaF cmMFqaTjVnTEXtJJpxX1tc BhBoI1EqGSQyFtViaRCzJ8 ggVGhpcyByZXBvcnQgbWF5 UNdqP9x9JMTfhqLweLd2cq SgVoGfQIWfXPL5MYwiyAPw JXQnh2WcjoqjwBSaYv3heJ DfIJXvmV3yRSVmJVByOPbf PN9utAy6YERGhTImnIBiVk HCKILsTL07wjUrTCLBwgli c3J1JGeyBKTbh9UooAXtI1 qsr8MkBPTgm72yAB8pi3B8 g3zzAOO8CT0ks0JvJXVtbX SpiEXvTJDkz1Mczkyuw7Uy QTIrslWaa5WdLYKtmfHxkR UiLFNzrpCkdg4ujePpAAHu PKDqN5XzxybxkYbarnWiUB Wfuw4cxjZdUIA6ZMVAOJOd CEHsu7VehL4aeNPAPHL9vW Uadg8eteKBcABhDDAdle79 NJOjJS0oK3boHCVjJIQlzh OltIWdn7OwLPQsfKX9aEMl YJ7TFtTHd80eSIWmXRRVkg VxSFSpfEcuyNW1rmP9oU3r IChGREEpLlx+IFRoZSBGRE ElWU9giuUzs8KubbJcmXxy LBDjaLXut7ChuLVzy6JgbX pqe8ErfKZasYIhRY7iWGUq clxwYXIgVVRNQiBMYWJvcm T5v8RwEPAtMSOnXTP7tEwe yrp3SVEyaU2mGYIcK4ncvb wxSVehVHCzc2TxlD0yvNTX eIUul6DbrPTbkXWIxCDbFD 8uxbKjFAxNBRnGYUV7izNz MIYoj8BpMXngI9quG62nxQ pbbQv8eIJ1GIR6xM7lIxc+ IFxwYXJccGFyIEFwcHJvcH FmPFEysSijfwElX3MgejBb iR4ghTMonqKpXG0sFF3yS9 U4wXLmPJCmbuOhf9jeDLew dmUgYmVlbiByZXZpZXdlZC Fbb5UuHWksVMI7NFqoerIe bmNsdWRpbmcgSCZFLCBTcG SauLBcMNG6EPlsokVcryDu GZ8skT8yaWikiD5meMRkqF P2mgedZRHhIXYdpXmhMBBx JV8jfJcwlZ6iKtQrOoYbBA tgBK5bGFXuK9uxrIHuCYXx ZHOfQ7rnMtHrbA3txShqYC xjZjJcZnMyMFxwYXJccGFy XHBsYWluXGYxXGZzMjBcbG FuZzEwMzNcaGljaFxmMVxk NjXqZLBkNYopN8pcBiBaJ4 NdFMKgEtNjbCUyP8ryVPny EYA8ZUKwUK0cyPBfFQ39bN Aup4prDBbloUdalq0jB60u aSTmVDodzLzcJLQim05qt6 KwRTCpmvZzii1kSCLmdnA8 zD6jGHCybKzeZRQpaYQeQD Cle6AiKUhdfOMghjGjONhe YBRqDCFejPZgxoC8udQfzb UqizHhOJLbiOceQHMrx3Ef ANQmEOdon5Znek8qpFAaHG XaljPGsClmyYTwtA3oP2Zn OZAyVRBjdg6jYSJhiP0jZG dtk6LngkxuZJEgJCUxTZFg laRyok3wPVPkjLDUZP8EAH rrvXKey5XnisKbV3sPLUZ0 NUQwNjYwMjgxKSBleGNlcH RqIBBivl66CGZtaU2fjYyj JQMyoS4zaQ4moYphuR8lEy GcKfNkEYeiNZ2aETSjT4ox mZAoSNRpQHGeA0woDcPcuT 9jaFxmMVxjZjJcZnMyMFxw YXJ9fQ== Embedded Images (test code = 2803516106) [facility] [id number] 11:43:00* Test Item Value Reference Range Interpretation Comme [facility] POCT PREG (test code = 1605) Negative On board controls acceptable with C Line (test code = 3574) Yes POCT PREG LOT # (test code = 3575) POCT PREG TEST DATE ( test code = 3576) Lab Interpretation (test cod e = 99721-9) Normal [facility]EN[facility] [id number] 17:39:58* Test Item Value Reference Range Interpretation Comme [facility] G6PD SCREEN (test code = 0017976096) Normal Normal MARCELINO (test code = MARCELINO) Normal G6PD activity. ?No evidence of G6PD deficiency. Lab Interpretation (test code = 94762-2) Normal [facility] [id number] 18:27:02* Test Item Value Reference Range Interpretation Comme [facility] QFT Gold Plus Result (test code = 53178-1) Negative Negative MARCELINO (test code = MARCELINO) [...] /publications/guidelin es/[email or web address].htm. Lab Interpretation (test code = 12781-8) Normal [facility] HospitalTHIOP[facility]INE METHYLTRANSFERASE, [id number] 03:08:32* Test Item Value Reference Range Interpretation Comme nts THIOPURINE METHYLTRANSFERASE, RBC (test code = 83873-4) 27.1 U/mL 24.0-44.0 INTERPRETIVE INF ORMATION: Thiopurine [...] developed and its performance characteristics determined by [facility]. It has not been cleared or approved by the [place] Food and Drug Administration. This test was performed in a CLIA certified laboratory and is intended for clinical purposes.Performed By: [facility] [place] [id number] Director: Alex Adrian MD, PhDCLIA Number: [id number] [facility] HospitalQU[facility]IFERON-TB [id number] 21:43:02* Test Item Value Reference Range Interpretation Comme nts Extra Tube (test code = 8109030284) Received in Lab [facility] HospitalLUPUS ANTICOAGULANT REFLEXIVE [id number] 20:21:52* Test Item Value Reference Range Interpretation Comments Prothrombin Time (test code = 5902-2) 13.0 See_Comment [Automated message] The system which generated this result transmitted reference range: 12.0 - 15.5 sec. The reference range was not used to interpret this result as normal/abnormal. PTT-LA Screen (PTT-D) (test code = 32845-2) 43 See_Comment [Automated messa ge] The system [...] normal/abnormal. PTT-D Heparin Neutralized (test code = 69498-6) Not Applicable See_Comment [Automated messa ge] The [...] Platelet Neutralization (PTT-D, Confirm) (test code = 08310-3) Not Applicable Negative dRVVT Screen (test code = 6303-2) 31 See_Comment L [Automated messa ge] The system which generated this result transmitted reference range: 33 - 44 sec. The reference range was not used to interpret this result as normal/abnormal. dRVVT 1:1 Mix (test code = 51629-6) Not Applicable See_Comment [Automated messa ge] The system which generated this result transmitted reference range: 33 - 44 sec. The reference range was not used to interpret this result as normal/abnormal. dRVVT Confirmation (test code = 50706-3) Not Applicable Negative ratio Hexagonal Phospholipid Neutral Reflex (test code = 91734-9) Not Applicable Negative Lupus Anticoagulant Interpretation (test code = 13446-1) See Note Lupus anticoagul ant not detected.The [...] testing has not already been performed.Performed By: [facility] [place] [id number] Director: Alex Adrian MD, PhDCLIA Number: [id number] Lab Interpretation (test code = 83048-8) [facility] [facility]-[id number] 15:04:39* Test Item Value Reference Range Interpretation Comme nts Anti-Ribonucleoprotein (test code = 3021964654) Negative Negative MARCELINO (test code = MARCELINO) Positive - Antibod y detected.Negative - No antibody detected. Lab Interpretation (test code = 71389-1) Normal [facility]DUMONT(SM)2023-04-11 15:04:39* Test Item Value Reference Range Interpretation Comme nts Anti-Dumont (test code = 1516761184) Negative Negative MARCELINO (test code = MARCELINO) Positive - Antibod y detected.Negative - No antibody detected. Lab Interpretation (test code = 15693-1) Normal [facility]-SSA(RO)2023-04-11 15:04:39* Test Item Value Reference Range Interpretation Comme nts ANTI-SSA(RO) (test code = 8191288666) Negative Negative MARCELINO (test code = MARCELINO) Positive - Antibod y detected.Negative - No antibody detected. Lab Interpretation (test code = 90035-4) Normal [facility]-SSB(LA)2023-04-11 15:04:39* Test Item Value Reference Range Interpretation Comme nts Anti-SSB(LA) (test code = 7584157461) Negative Negative MARCELINO (test code = MARCELINO) Positive - Antibod y detected.Negative - No antibody detected. Lab Interpretation (test code = 55612-2) Normal [facility]-DOUBLE STRANDED [id number] 15:04:38* Test Item Value Reference Range Interpretation Comme nts ANTI-DSDNA (test code = 3961970853) See_Comment [Automated message] The system which generated this result transmitted reference range: 0.0 - 4.0 IU/mL. The reference range was not used to interpret this result as normal/abnormal. MARCELINO (test code = MARCELINO) Negative ? ?< or = 4 IU/mLPositive ? ? ?> or = 10 IU/mLIndetermin ate ?5-9 IU/mL Lab Interpretation (test code = 13997-6) [id number] 21:32:37* Test Item Value Reference Range Interpretation Comme nts VIT D 25OH (test code = 29463-3) 17 ng/mL 25-80 L MARCELINO (test code = MARCELINO) Deficiency: <20 ng/mLInsufficiency: 20-24 ng/mLOptimal: 25-80 ng/mL Lab Interpretation (test code = 42638-4) [facility] [id number] 19:42:07* Test Item Value Reference Range Interpretation Comme nts C3 (test code = 1846407345) 113 mg/dL 86-184 Lab Interpretation (test cod e = 90350-6) [facility] [id number] 19:42:07* Test Item Value Reference Range Interpretation Comme nts C4 (test code = 7485577578) 40 mg/dL 20-59 Lab Interpretation (test cod e = 24477-2) [facility]REACTIVE [id number] 19:42:07* Test Item Value Reference Range Interpretation Comme nts CRP (test code = 3732484902) 1.4 mg/dL <=0.8 H Lab Interpretation (test cod e = 81457-4) [facility]IRON [id number] 18:18:12* Test Item Value Reference Range Interpretation Comme nts IRON (test code = 3625358069) 35 ug/dL 50-160 L TIBC (test code = 4101152964) 425 ug/dL 250-410 H % FE SAT (test code = 4103364570) 8 % 20-50 L Lab Interpretation (test cod e = 26082-6) [facility]CREATINE [id number] 18:08:29* Test Item Value Reference Range Interpretation Comme nts CK (test code = 3087311901) 31 U/L 33-194 L Lab Interpretation (test cod e = 59566-0) [facility] MET[facility]OLIC PANEL (99257)2023-01-26 03:18:50* Test Item Value Reference Range Interpretation Comme nts NA (test code = 1320656311) 139 mmol/L 135-145 K (test code = 8753836006) 4.0 mmol/L 3.5-5.0 CL (test code = 4313279815) 103 mmol/L 98-108 CO2 TOTAL (test code = 4992032988) 25 mmol/L 23-31 AGAP (test code = 3206251825) 11 2-16 BUN (test code = 7575691190) 12 mg/dL 7-23 GLUCOSE (test code = 8020556197) 93 mg/dL 70-110 CREATININE (test code = 5196688251) 0.62 mg/dL 0.50-1.04 TOTAL BILI (test code = 1256001147) 0.4 mg/dL 0.1-1.1 CALCIUM (test code = 9826195813) 9.3 mg/dL 8.6-10.6 T PROTEIN (test code = 6049077198) 8.1 g/dL 6.3-8.2 ALBUMIN (test code = 7764794750) 4.4 g/dL 3.5-5.0 ALK PHOS (test code = 5393913003) 89 U/L 34-122 ALTv (test code = 1742-6) 19 U/L 5-35 AST(SGOT) (test code = 7651225655) 34 U/L 13-40 eGFR (test code = 6441649379) 113.8 mL/min/1.73m2 MARCELINO (test code = MARCELINO) [...] or urine or abnormalities in imaging tests). [facility] 03:18:49* Test Item Value Reference Range Interpretation Comme nts LIPASE (test code = 9178674561) 132 U/L 0-220 Lab Interpretation (test cod e = 13341-7) [facility] WITH [id number] 02:53:28* Test Item Value Reference Range Interpretation Comme nts WBC (test code = 6690-2) 8.11 See_Comment [Automated [employer]reams] The system which generated this result transmitted reference range: 4.30 - 11.10 10*3/?L. The reference range was not used to interpret this result as normal/abnormal. RBC (test code = 789-8) 3.54 See_Comment L [Automated E[employer]a Doodle] The system which generated this result transmitted [...] 31.6 g/dL 31.6-35.1 RDW-SD (test code = 76160-4) 42.7 fL 39.0-49.9 RDW-CV (test code = 788-0) 13.4 % 12.0-15.5 PLT (test code = 777-3) 424 See_Comment H [Automated [employer] Doodle] The system which generated this result transmitted reference range: 166 - 358 10*3/?L. The reference range was not used to interpret this result as normal/abnormal. MPV (test code = 38804-1) 9.9 fL 9.5-12.9 IPF % (test code = 5168107806) 2.3 % 1.3-7.7 Platelet count measured by fluorescence method. NRBC/100 WBC (test code = 7948793859) 0.0 See_Comment [Automated eFans ssage] The system which generated this result transmitted reference range: 0.0 - 10.0 /100 WBCs. The reference range was not used to interpret this result as normal/abnormal. NRBC x10^3 (test code = 3096769528) See_Comment [Automated [employer] Doodle] The system which generated this result transmitted reference range: 10*3/?L. The reference range was not used to interpret this result as normal/abnormal. GRAN MAT (NEUT) % (test code = 770-8) 59.8 % IMM GRAN % (test code = 1681211096) 0.60 % LYMPH % (test code = 736-9) 29.3 % MONO % (test code = 5905-5) 8.5 % EOS % (test code = 713-8) 1.2 % BASO % (test code = 706-2) 0.6 % GRAN MAT x10^3(ANC) (test code = 5063681196) 4.84 10*3/uL 1.88-7.09 IMM GRAN x10^3 (test code = 8925596518) 0.05 10*3/uL 0.00-0.06 LYMPH x10^3 (test code = 731-0) 2.38 10*3/uL 1.32-3.29 MONO x10^3 (test code = 742-7) 0.69 10*3/uL 0.33-0.92 EOS x10^3 (test code = 711-2) 0.10 10*3/uL 0.03-0.39 BASO x10^3 (test code = 704-7) 0.05 10*3/uL 0.01-0.07 Lab Interpretation (test code = 50540-1) Abnormal [facility] [id number] 02:03:00* Test Item Value Reference Range Interpretation Comme nts POCT PREG (test code = 1605) Negative On board controls acceptable with C Line (test code = 3574) Yes POCT PREG LOT # (test code = 3575) [id number] POCT PREG TEST DATE ( test code = 3576) 03/26/2024 Lab Interpretation (test cod e = 11449-2) Normal [facility] [id number] 17:54:00* Test Item Value Reference Range Interpretation Comme nts POCT PREG (test code = 1605) Positive On board controls acceptable with C Line (test code = 3574) Yes POCT PREG LOT # (test code = 3575) POCT PREG TEST DATE ( test code = 3576) Lab Interpretation (test cod e = 24462-6) [facility] WITHOUT [id number] 04:28:06* Test Item Value Reference Range Interpretation [...] result as normal/abnormal. MPV (test code = 88720-6) 10.9 fL 9.5-12.9 RDW-CV (test code = 788-0) 13.1 % 12.0-15.5 RDW-SD (test code = 14989-6) 42.8 fL 39.0-49.9 NRBC x10^3 (test code = 8002621759) See_Comment [Automated messa ge] The system which generated this result transmitted reference range: 10*3/?L. The reference range was not used to interpret this result as normal/abnormal. NRBC/100 WBC (test code = 1546280540) 0.0 See_Comment [Automated messa ge] The system which generated this result transmitted reference range: 0.0 - 10.0 /100 WBCs. The reference range was not used to interpret this result as normal/abnormal. IPF % (test code = 4237810414) Lab Interpretation (test code = 80718-5) [facility] WITHOUT [id number] 04:28:06* Test Item Value Reference Range Interpretation [...] result as normal/abnormal. MPV (test code = 58534-2) 10.9 fL 9.5-12.9 RDW-CV (test code = 788-0) 13.1 % 12.0-15.5 RDW-SD (test code = 92908-6) 42.8 fL 39.0-49.9 NRBC x10^3 (test code = 9346399903) See_Comment [Automated [employer]] The system which generated this result transmitted reference range: 10*3/?L. The reference range was not used to interpret this result as normal/abnormal. NRBC/100 WBC (test code = 6201864557) 0.0 See_Comment [Automated [employer]] The system which generated this result transmitted reference range: 0.0 - 10.0 /100 WBCs. The reference range was not used to interpret this result as normal/abnormal. IPF % (test code = 5404904472) Lab Interpretation (test code = 89811-6) Abnormal [facility] BETA HCG [id number] 19:25:18* Test Item Value Reference Range Interpretation Comme nts BETA HCG (test code = 5814310391) 28990.00 See_Comment [Automated [employer]] The system which generated this result transmitted reference range: Non- female and male patients: <5 mIU/mL. The reference range was not used to interpret this result as normal/abnormal. MARCELINO (test code = MARCELINO) Gestational Age ?Range (mIU/mL) 1-10 ?Weeks ?89-36886034-61 Weeks ?29392-19520994-75 Weeks ?6032-11609503-78 Weeks ?1531-387216 Biotin has been reported to cause a negative bias, interpret results relative to patient's use of biotin. [facility] BETA HCG [id number] 19:25:18* Test Item Value Reference Range Interpretation Comme nts BETA HCG (test code = 4431875213) 66719.00 See_Comment [Automated Eposa ge] The system which generated this result transmitted reference range: Non- female and male patients: <5 mIU/mL. The reference range was not used to interpret this result as normal/abnormal. MARCELINO (test code = MARCELINO) Gestational Age ?Range (mIU/mL) 1-10 ?Weeks ?14-76248096-44 Weeks ?37895-80289101-55 Weeks ?3529-05089328-75 Weeks ?1531-530579 Biotin has been reported to cause a negative bias, interpret results relative to patient's use of biotin. [facility]. METABOLIC PANEL (44179)2023-01-08 16:46:39* Test Item Value Reference Range Interpretation Comme nts NA (test code = 9767624910) 136 mmol/L 135-145 K (test code = 0245002004) 3.6 mmol/L 3.5-5.0 CL (test code = 1471790881) 104 mmol/L 98-108 CO2 TOTAL (test code = 2253950246) 23 mmol/L 23-31 AGAP (test code = 8005651651) 9 2-16 BUN (test code = 9042366747) 6 mg/dL 7-23 L GLUCOSE (test code = 2500933114) 97 mg/dL 70-110 CREATININE (test code = 6687026828) 0.49 mg/dL 0.50-1.04 L TOTAL BILI (test code = 8305101055) 0.5 mg/dL 0.1-1.1 CALCIUM (test code = 2682248964) 8.7 mg/dL 8.6-10.6 T PROTEIN (test code = 4672985639) 7.5 g/dL 6.3-8.2 ALBUMIN (test code = 9102282673) 3.9 g/dL 3.5-5.0 ALK PHOS (test code = 2423232457) 61 U/L 34-122 ALTv (test code = 1742-6) 18 U/L 5-35 AST(SGOT) (test code = 3477264229) 23 U/L 13-40 eGFR (test code = 9665328805) 149.3 mL/min/1.73m2 MARCELINO (test code = MARCELINO) [...] imaging tests). Lab Interpretation (test code = 19963-3) Abnormal [facility]. METABOLIC PANEL (97090)2023-01-08 16:46:39* Test Item Value Reference Range Interpretation Comme nts NA (test code = 7276802531) 136 mmol/L 135-145 K (test code = 5827558940) 3.6 mmol/L 3.5-5.0 CL (test code = 3507724415) 104 mmol/L 98-108 CO2 TOTAL (test code = 4867545077) 23 mmol/L 23-31 AGAP (test code = 0319905373) 9 2-16 BUN (test code = 3462335823) 6 mg/dL 7-23 L GLUCOSE (test code = 7720243227) 97 mg/dL 70-110 CREATININE (test code = 4607381240) 0.49 mg/dL 0.50-1.04 L TOTAL BILI (test code = 3001470177) 0.5 mg/dL 0.1-1.1 CALCIUM (test code = 8168362412) 8.7 mg/dL 8.6-10.6 T PROTEIN (test code = 7637283814) 7.5 g/dL 6.3-8.2 ALBUMIN (test code = 0256277094) 3.9 g/dL 3.5-5.0 ALK PHOS (test code = 0005054150) 61 U/L 34-122 ALTv (test code = 1742-6) 18 U/L 5-35 AST(SGOT) (test code = 5223901682) 23 U/L 13-40 eGFR (test code = 1395873655) 149.3 mL/min/1.73m2 MARCELINO (test code = MARCELINO) [...] imaging tests). Lab Interpretation (test code = 24677-5) [facility] 16:46:19* Test Item Value Reference Range Interpretation Comme nts LIPASE (test code = 7026669187) 81 U/L 0-220 Lab Interpretation (test cod e = 40132-4) [facility] 16:46:19* Test Item Value Reference Range Interpretation Comme nts LIPASE (test code = 3063592852) 81 U/L 0-220 Lab Interpretation (test cod e = 06599-0) [facility] [id number] 16:37:55* Test Item Value Reference Range Interpretation Comme nts WBC (test code = 6690-2) 6.04 See_Comment [Automated [employer] Doodle] The system which generated this result transmitted reference range: 4.30 - 11.10 10*3/?L. The reference range was not used to interpret this result as normal/abnormal. RBC (test code = 789-8) 3.84 See_Comment L [Automated [employer] Doodle] The system which generated this result transmitted [...] 33.0 g/dL 31.6-35.1 RDW-SD (test code = 92778-9) 40.9 fL 39.0-49.9 RDW-CV (test code = 788-0) 13.1 % 12.0-15.5 PLT (test code = 777-3) 273 See_Comment [Automated Eposa ge] The system which generated this result transmitted reference range: 166 - 358 10*3/?L. The reference range was not used to interpret this result as normal/abnormal. MPV (test code = 32695-6) 10.2 fL 9.5-12.9 NRBC/100 WBC (test code = 0882399431) 0.0 See_Comment [Automated eFans ssage] The system which generated this result transmitted reference range: 0.0 - 10.0 /100 WBCs. The reference range was not used to interpret this result as normal/abnormal. NRBC x10^3 (test code = 6371400391) See_Comment [Automated Eposa ge] The system which generated this result transmitted reference range: 10*3/?L. The reference range was not used to interpret this result as normal/abnormal. GRAN MAT (NEUT) % (test code = 770-8) 79.1 % IMM GRAN % (test code = 4316755998) 0.30 % LYMPH % (test code = 736-9) 10.3 % MONO % (test code = 5905-5) 8.6 % EOS % (test code = 713-8) 1.2 % BASO % (test code = 706-2) 0.5 % GRAN MAT x10^3(ANC) (test code = 7530367962) 4.78 10*3/uL 1.88-7.09 IMM GRAN x10^3 (test code = 1202691558) 0.00-0.06 LYMPH x10^3 (test code = 731-0) 0.62 10*3/uL 1.32-3.29 L MONO x10^3 (test code = 742-7) 0.52 10*3/uL 0.33-0.92 EOS x10^3 (test code = 711-2) 0.07 10*3/uL 0.03-0.39 BASO x10^3 (test code = 704-7) 0.03 10*3/uL 0.01-0.07 Lab Interpretation (test code = 49312-2) [facility] WITH [id number] 16:37:55* Test Item Value Reference Range Interpretation [...] 33.0 g/dL 31.6-35.1 RDW-SD (test code = 95326-7) 40.9 fL 39.0-49.9 RDW-CV (test code = 788-0) 13.1 % 12.0-15.5 PLT (test code = 777-3) 273 See_Comment [Automated messa ge] The system which generated this result transmitted reference range: 166 - 358 10*3/?L. The reference range was not used to interpret this result as normal/abnormal. MPV (test code = 40598-6) 10.2 fL 9.5-12.9 NRBC/100 WBC (test code = 0803837903) 0.0 See_Comment [Automated eFans ssage] The system which generated this result transmitted reference range: 0.0 - 10.0 /100 WBCs. The reference range was not used to interpret this result as normal/abnormal. NRBC x10^3 (test code = 9672341489) See_Comment [Automated messa ge] The system which generated this result transmitted reference range: 10*3/?L. The reference range was not used to interpret this result as normal/abnormal. GRAN MAT (NEUT) % (test code = 770-8) 79.1 % IMM GRAN % (test code = 7672941246) 0.30 % LYMPH % (test code = 736-9) 10.3 % MONO % (test code = 5905-5) 8.6 % EOS % (test code = 713-8) 1.2 % BASO % (test code = 706-2) 0.5 % GRAN MAT x10^3(ANC) (test code = 1008911154) 4.78 10*3/uL 1.88-7.09 IMM GRAN x10^3 (test code = 2841869857) 0.00-0.06 LYMPH x10^3 (test code = 731-0) 0.62 10*3/uL 1.32-3.29 L MONO x10^3 (test code = 742-7) 0.52 10*3/uL 0.33-0.92 EOS x10^3 (test code = 711-2) 0.07 10*3/uL 0.03-0.39 BASO x10^3 (test code = 704-7) 0.03 10*3/uL 0.01-0.07 Lab Interpretation (test code = 01831-4) [facility] (60300[facility] 04:39:51* Test Item Value Reference Range Interpretation Comme nts NA (test code = 0910206238) 136 mmol/L 135-145 K (test code = 7495272807) 5.0 mmol/L 3.5-5.0 CL (test code = 5234615444) 101 mmol/L 98-108 CO2 TOTAL (test code = 1148118084) 25 mmol/L 23-31 AGAP (test code = 4874418300) 10 2-16 BUN (test code = 9239136710) 9 mg/dL 7-23 GLUCOSE (test code = 7884049055) 81 mg/dL 70-110 CREATININE (test code = 8645078009) 0.46 mg/dL 0.50-1.04 L TOTAL BILI (test code = 3145059380) 0.7 mg/dL 0.1-1.1 CALCIUM (test code = 4841444296) 9.6 mg/dL 8.6-10.6 T PROTEIN (test code = 6607041737) 8.4 g/dL 6.3-8.2 H ALBUMIN (test code = 9291499535) 4.5 g/dL 3.5-5.0 ALK PHOS (test code = 9737500603) 61 U/L 34-122 ALTv (test code = 1742-6) 19 U/L 5-35 AST(SGOT) (test code = 5043291793) 32 U/L 13-40 eGFR (test code = 7336612743) 160.6 mL/min/1.73m2 MARCELINO (test code = MARCELINO) [...] imaging tests). Lab Interpretation (test code = 59490-7) [facility] WITH [id number] 04:26:51* Test Item Value Reference Range Interpretation Comme nts WBC (test code = 6690-2) 8.93 See_Comment [Automated Eposa ge] The system which generated this result transmitted reference range: 4.30 - 11.10 10*3/?L. The reference range was not used to interpret this result as normal/abnormal. RBC (test code = 789-8) 4.16 See_Comment [Automated Eposa ge] The system which generated this result [...] 32.4 g/dL 31.6-35.1 RDW-SD (test code = 25048-5) 42.9 fL 39.0-49.9 RDW-CV (test code = 788-0) 13.2 % 12.0-15.5 PLT (test code = 777-3) 389 See_Comment H [Automated Eposa ge] The system which generated this result transmitted reference range: 166 - 358 10*3/?L. The reference range was not used to interpret this result as normal/abnormal. MPV (test code = 60791-2) 10.1 fL 9.5-12.9 NRBC/100 WBC (test code = 7662699114) 0.0 See_Comment [Automated eFans ssage] The system which generated this result transmitted reference range: 0.0 - 10.0 /100 WBCs. The reference range was not used to interpret this result as normal/abnormal. NRBC x10^3 (test code = 0424896350) See_Comment [Automated Eposa ge] The system which generated this result transmitted reference range: 10*3/?L. The reference range was not used to interpret this result as normal/abnormal. GRAN MAT (NEUT) % (test code = 770-8) 62.8 % IMM GRAN % (test code = 7883091206) 0.30 % LYMPH % (test code = 736-9) 27.4 % MONO % (test code = 5905-5) 7.2 % EOS % (test code = 713-8) 1.7 % BASO % (test code = 706-2) 0.6 % GRAN MAT x10^3(ANC) (test code = 0361014944) 5.61 10*3/uL 1.88-7.09 IMM GRAN x10^3 (test code = 9445318724) 0.03 10*3/uL 0.00-0.06 LYMPH x10^3 (test code = 731-0) 2.45 10*3/uL 1.32-3.29 MONO x10^3 (test code = 742-7) 0.64 10*3/uL 0.33-0.92 EOS x10^3 (test code = 711-2) 0.15 10*3/uL 0.03-0.39 BASO x10^3 (test code = 704-7) 0.05 10*3/uL 0.01-0.07 Lab Interpretation (test code = 54755-5) [facility] - ONCE [id number] 04:23:00* Test Item Value Reference Range Interpretation Comme nts ABO & RH (test code = 20) A Positive IAT (test code = 1185) Negative [facility] W SPECIFIC [id number] 16:06:00* Test Item Value Reference Range Interpretation [...] U APPEAR (test code = 3267) . [facility] [id number] 05:59:00* Test Item Value Reference Range Interpretation Comme nts HCG SERUM (test code = HCG) 26973 mi-IU/ML 0-6 H 0 - 6 NOT PREGNA NT > 6 SUGGESTIVE OF EARLY RISES TWO FOLD EVERY 2 DAYS; SUGGEST RECONFIRMING AFTER 2 DAYS. 150,000-200,[address] TRIMESTER 10,000 - 50,000 2ND & 3RD TRIMESTER CBC W/AUTO [id number] 05:35:00* Test Item Value Reference Range Interpretation [...] = MDIFF) NO DIFF/SCN CRITERIA COMPREHENSIVE METABOLIC [id number] 05:27:00* Test Item Value Reference Range Interpretation [...] Unit/L 45-117 N POCT URINALYSIS W/O SPECIFIC [id number] 15:38:00* Test Item Value Reference Range Interpretation [...] = 3257) NEG Negative - Negati ve [facility] URINALYSIS W/O SPECIFIC [id number] 15:38:00* Test Item Value Reference Range Interpretation [...] = 3257) NEG Negative - Negati ve [facility] [id number] 15:37:00* Test Item Value Reference Range Interpretation Comme nts POCT PREG (test code = 1605) Positive On board controls acceptable with C Line (test code = 3574) Yes POCT PREG LOT # (test code = 3575) POCT PREG TEST DATE ( test code = 3576) [facility] [id number] 15:37:00* Test Item Value Reference Range Interpretation Comme nts POCT PREG (test code = 1605) Positive On board controls acceptable with C Line (test code = 3574) Yes POCT PREG LOT # (test code = 3575) POCT PREG TEST DATE ( test code = 3576) [facility] [id number] 17:56:00* Test Item Value Reference Range Interpretation Comme nts POCT PREG (test code = 1605) Positive On board controls acceptable with C Line (test code = 3574) Yes POCT PREG LOT # (test code = 3575) POCT PREG TEST DATE ( test code = 3576) [facility] [id number] 17:56:00* Test Item Value Reference Range Interpretation Comme nts POCT PREG (test code = 1605) Positive On board controls acceptable with C Line (test code = 3574) Yes POCT PREG LOT # (test code = 3575) POCT PREG TEST DATE ( test code = 3576) [facility] URINALYSIS W/O SPECIFIC [id number] 16:24:00* Test Item Value Reference Range Interpretation [...] = 3257) Trace Negative - Negati ve [facility] URINALYSIS W/O SPECIFIC [id number] 16:24:00* Test Item Value Reference Range Interpretation [...] = 3257) Trace Negative - Negati ve [facility] [id number] 20:16:00* Test Item Value Reference Range Interpretation Comme nts POCT PREG (test code = 1605) Negative On board controls acceptable with C Line (test code = 3574) Yes POCT PREG LOT # (test code = 3575) POCT PREG TEST DATE ( test code = 3576) [facility] BHCG (QUANTITATIVE)2022-09-27 00:50:12* Test Item Value Reference Range Interpretation Comme nts BETA HCG (test code = 6460788890) 2138.50 See_Comment [Automated Eposa ge] The system which generated this result transmitted reference range: Non- female and male patients: <5 mIU/mL. The reference range was not used to interpret this result as normal/abnormal. MARCELINO (test code = MARCELINO) Gestational Age ?Range (mIU/mL) 1-10 ?Weeks ?51-43432554-01 Weeks ?69052-04626707-85 Weeks ?0949-89614003-20 Weeks ?8372-881928 Biotin has been reported to cause a negative bias, interpret results relative to patient's use of biotin. [facility] BHCG (QUANTITATIVE)2022-09-27 00:50:12* Test Item Value Reference Range Interpretation Comme nts BETA HCG (test code = 6027295128) 2138.50 See_Comment [Automated [employer] ge] The system which generated this result transmitted reference range: Non- female and male patients: <5 mIU/mL. The reference range was not used to interpret this result as normal/abnormal. MARCELINO (test code = MARCELINO) Gestational Age ?Range (mIU/mL) 1-10 ?Weeks ?11-93801066-37 Weeks ?71486-66824130-87 Weeks ?9935-03567615-92 Weeks ?1581-604453 Biotin has been reported to cause a negative bias, interpret results relative to patient's use of biotin. [facility]. METABOLIC PANEL ([id number])2022-09-27 00:25:05* Test Item Value Reference Range Interpretation Comme nts NA (test code = 0075194796) 137 mmol/L 135-145 K (test code = 0679016877) 4.3 mmol/L 3.5-5.0 CL (test code = 7622971468) 103 mmol/L 98-108 CO2 TOTAL (test code = 0826162539) 24 mmol/L 23-31 AGAP (test code = 7149587907) 10 2-16 BUN (test code = 1690226284) 9 mg/dL 7-23 GLUCOSE (test code = 5465705567) 88 mg/dL 70-110 CREATININE (test code = 6020784390) 0.54 mg/dL 0.50-1.04 TOTAL BILI (test code = 3031405772) 0.4 mg/dL 0.1-1.1 CALCIUM (test code = 1246739927) 9.4 mg/dL 8.6-10.6 T PROTEIN (test code = 3219126352) 7.9 g/dL 6.3-8.2 ALBUMIN (test code = 2472144350) 4.5 g/dL 3.5-5.0 ALK PHOS (test code = [id number]) 77 U/L 34-122 ALTv (test code = 1742-6) 18 U/L 5-35 AST(SGOT) (test code = 2964666526) 20 U/L 13-40 eGFR (test code = 4443904159) 133.5 mL/min/1.73m2 MARCELINO (test code = MARCELINO) [...] or urine or abnormalities in imaging tests). [facility]. METABOLIC PANEL (28763)2022-09-27 00:25:05* Test Item Value Reference Range Interpretation Comme nts NA (test code = 5470109826) 137 mmol/L 135-145 K (test code = 5034434142) 4.3 mmol/L 3.5-5.0 CL (test code = 0430093254) 103 mmol/L 98-108 CO2 TOTAL (test code = 5606337065) 24 mmol/L 23-31 AGAP (test code = 2238628795) 10 2-16 BUN (test code = 2829300824) 9 mg/dL 7-23 GLUCOSE (test code = 7660393820) 88 mg/dL 70-110 CREATININE (test code = 9612289968) 0.54 mg/dL 0.50-1.04 TOTAL BILI (test code = 2275829747) 0.4 mg/dL 0.1-1.1 CALCIUM (test code = 8458739906) 9.4 mg/dL 8.6-10.6 T PROTEIN (test code = 6985368922) 7.9 g/dL 6.3-8.2 ALBUMIN (test code = 3961682296) 4.5 g/dL 3.5-5.0 ALK PHOS (test code = 1903816001) 77 U/L 34-122 ALTv (test code = 1742-6) 18 U/L 5-35 AST(SGOT) (test code = 8532561697) 20 U/L 13-40 eGFR (test code = 7027080581) 133.5 mL/min/1.73m2 MARCELINO (test code = MARCELINO) [...] or urine or abnormalities in imaging tests). [facility] [id number] 00:16:48* Test Item Value Reference Range Interpretation Comme [facility] PROTIME PATIENT (test code = 5964-2) [...] the indications. Lab Interpretation (test code = 76552-4) [facility]normal [facility] / [id number] 00:16:48* Test Item Value Reference Range Interpretation Comme [facility] PROTIME PATIENT (test code = 5964-2) [...] the indications. Lab Interpretation (test code = 89834-1) [facility] [id number] 00:09:05* Test Item Value Reference Range Interpretation Comme [facility] WBC (test code = 6690-2) 9.64 See_Comment [...] 32.5 g/dL 31.6-35.1 RDW-SD (test code = 43738-4) 42.0 fL 39.0-49.9 RDW-CV (test code = 788-0) 13.3 % 12.0-15.5 PLT (test code = 777-3) 364 See_Comment H [Automated messa ge] The system which generated this result transmitted reference range: 166 - 358 10*3/?L. The reference range was not used to interpret this result as normal/abnormal. MPV (test code = 26863-1) 10.0 fL 9.5-12.9 NRBC/100 WBC (test code = 1563574977) 0.0 See_Comment [Automated me ssage] The system which generated this result transmitted reference range: 0.0 - 10.0 /100 WBCs. The reference range was not used to interpret this result as normal/abnormal. NRBC x10^3 (test code = 5240993636) See_Comment [Automated messa ge] The system which generated this result transmitted reference range: 10*3/?L. The reference range was not used to interpret this result as normal/abnormal. GRAN MAT (NEUT) % (test code = 770-8) 72.5 % IMM GRAN % (test code = 6104705304) 0.30 % LYMPH % (test code = 736-9) 19.0 % MONO % (test code = 5905-5) 6.6 % EOS % (test code = 713-8) 1.2 % BASO % (test code = 706-2) 0.4 % GRAN MAT x10^3(ANC) (test code = 7994081079) 6.98 10*3/uL 1.88-7.09 IMM GRAN x10^3 (test code = 3385596505) 0.03 10*3/uL 0.00-0.06 LYMPH x10^3 (test code = 731-0) 1.83 10*3/uL 1.32-3.29 MONO x10^3 (test code = 742-7) 0.64 10*3/uL 0.33-0.92 EOS x10^3 (test code = 711-2) 0.12 10*3/uL 0.03-0.39 BASO x10^3 (test code = 704-7) 0.04 10*3/uL 0.01-0.07 Lab Interpretation (test code = 88353-3) [facility] [id number] 00:09:05* Test Item Value Reference Range Interpretation [...] 32.5 g/dL 31.6-35.1 RDW-SD (test code = 23230-6) 42.0 fL 39.0-49.9 RDW-CV (test code = 788-0) 13.3 % 12.0-15.5 PLT (test code = 777-3) 364 See_Comment H [Automated messa ge] The system which generated this result transmitted reference range: 166 - 358 10*3/?L. The reference range was not used to interpret this result as normal/abnormal. MPV (test code = 49594-3) 10.0 fL 9.5-12.9 NRBC/100 WBC (test code = 5112897007) 0.0 See_Comment [Automated me ssage] The system which generated this result transmitted reference range: 0.0 - 10.0 /100 WBCs. The reference range was not used to interpret this result as normal/abnormal. NRBC x10^3 (test code = 8753973405) See_Comment [Automated messa ge] The system which generated this result transmitted reference range: 10*3/?L. The reference range was not used to interpret this result as normal/abnormal. GRAN MAT (NEUT) % (test code = 770-8) 72.5 % IMM GRAN % (test code = 3290588387) 0.30 % LYMPH % (test code = 736-9) 19.0 % MONO % (test code = 5905-5) 6.6 % EOS % (test code = 713-8) 1.2 % BASO % (test code = 706-2) 0.4 % GRAN MAT x10^3(ANC) (test code = 5675917291) 6.98 10*3/uL 1.88-7.09 IMM GRAN x10^3 (test code = 9396786828) 0.03 10*3/uL 0.00-0.06 LYMPH x10^3 (test code = 731-0) 1.83 10*3/uL 1.32-3.29 MONO x10^3 (test code = 742-7) 0.64 10*3/uL 0.33-0.92 EOS x10^3 (test code = 711-2) 0.12 10*3/uL 0.03-0.39 BASO x10^3 (test code = 704-7) 0.04 10*3/uL 0.01-0.07 Lab Interpretation (test code = 92180-1) [facility] [id number] 04:43:00* Test Item Value Reference Range Interpretation Comme nts POCT PREG (test code = 1605) positive On board controls acceptable with C Line (test code = 3574) positive POCT PREG LOT # (test code = 3575) [id number] POCT PREG TEST DATE ( test code = 3576) 07/21/2023 Lab Interpretation (test cod e = 81604-1) Normal [facility] URINALYSIS W SPECIFIC [id number] 21:19:00* Test Item Value Reference Range Interpretation [...] POCT U APPEAR (test code = 3267) [facility] URINALYSIS W SPECIFIC [id number] 21:19:00* Test Item Value Reference Range Interpretation [...] POCT U APPEAR (test code = 3267) [facility] [id number] 21:40:00* Test Item Value Reference Range Interpretation Comme nts POCT PREG (test code = 1605) Positive On board controls acceptable with C Line (test code = 3574) Yes POCT PREG LOT # (test code = 3575) POCT PREG TEST DATE ( test code = 3576) [facility] URINALYSIS W/O SPECIFIC [id number] 21:34:00* Test Item Value Reference Range Interpretation [...] = 3257) negative Negative - Negati ve [facility] [id number] 08:22:00* Test Item Value Reference Range Interpretation Comme nts POCT PREG (test code = 1605) neg On board controls acceptable with C Line (test code = 3574) yes POCT PREG LOT # (test code = 3575) [id number] POCT PREG TEST DATE ( test code = 3576) 09/19/2023 Lab Interpretation (test cod e = 29137-7) [facility] [id number] 06:28:56 * Test Item Value Reference Range Interpretation Comme nts TSH (test code = 2020718170) See_Comment Biotin has been reported to cause a negative bias, interpret results relative to patient's use of biotin. [Automated message] The system which generated this result transmitted reference range: 0.45 - 4.70 mIU/L. The reference range was not used to interpret this result as normal/abnormal. Lab Interpretation (test code = 47222-7) [facility] [id number] 06:28:56 * Test Item Value Reference Range Interpretation Comme nts TSH (test code = 9046012454) See_Comment Biotin has been reported to cause a negative bias, interpret results relative to patient's use of biotin. [Automated message] The system which generated this result transmitted reference range: 0.45 - 4.70 mIU/L. The reference range was not used to interpret this result as normal/abnormal. Lab Interpretation (test code = 23138-8) Normal [facility] [id number] 19:31:00* Test Item Value Reference Range Interpretation Comme nts POCT PREG (test code = 1605) Negative On board controls acceptable with C Line (test code = 3574) Yes POCT PREG LOT # (test code = 3575) POCT PREG TEST DATE ( test code = 3576) [facility] [id number] 19:31:00* Test Item Value Reference Range Interpretation Comme nts POCT PREG (test code = 1605) Negative On board controls acceptable with C Line (test code = 3574) Yes POCT PREG LOT # (test code = 3575) POCT PREG TEST DATE ( test code = 3576) [facility] Consult Notes Date/Time Note Provider Source 2023-01-08 18:58:39 Associated Order(s): CONSULT PRODUCT INSPECTION COORDINATOR FINANCIAL PLANNING ADVISOR CONSULT H&P NOTE Date of Service: 01/08/2023 [...] Chest pain or SOB Work up in [place] showed normal TSH and CXR Most recent [...] Esophageal reflux History of anemia 08/11/2022 Hypertension 2017 gestational, resolved. Irregular menstrual cycle 04/03/2022 Ovarian [...] N/A 09/24/2016 Surgeon: Joe Martino MD; Location: [facility] Labor and Delivery OR Location SECTION N/A 03/08/2018 Surgeon: Gloria Atkins; Location: Labor and Delivery - [facility] CHOLECYSTECTOMY 2021 DILATION AND CURETTAGE (SHX) 2010 Both (Dr Martino) DILATION AND CURETTAGE (SHX) N/A 09/27/2022 Surgeon: Gillian Reno MD; Location: [facility] OR [facility] TONSILLECTOMY WITH ADENOIDECTOMY Age 2 Social History Socioeconomic History Marital status: Number of children: 2 Years of education: 11th Occupational History 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 Drug use: No Sexual activity: Yes Partners: Male control/protection: None Comment: Last intercourse: 11/19/2022 Other Topics Concern Seat Belt Yes Comment: Sometimes Social History Narrative Denies domestic or physical violence within the home Nondenominational Preference: None Patient lives with her children, feels safe at home. Denies cats. Surgical History: Past Surgical History: Procedure Laterality Date SECTION Dr Aragon SECTION N/A 09/24/2016 Surgeon: Joe Martino MD; Location: [facility] Labor and Delivery OR Location SECTION N/A 03/08/2018 Surgeon: Gloria Atkins; Location: Labor and Delivery - [facility] CHOLECYSTECTOMY 2021 DILATION AND CURETTAGE (SHX) 2010 Both (Dr Martino) DILATION AND CURETTAGE (SHX) N/A 09/27/2022 Surgeon: Gillian Reno MD; [place] [facility] [place] ADENOIDECTOMY Age 2 OB History: [...] already had postop appointment/beta clinic appointment in [place] on 01/18. Encouraged to keep the appointment Mariajose Ramsey MD T [facility] - Health History and Physical Notes Date/Time [...] 8 (eight) hours as needed for Cough. JQXZLLMXJN-PAHUUEATCYBPL-MWXS 50-325-40 MG TABLET Take 1 tablet by mouth every 4 (four) hours as needed (severe migraine). Use sparingly no more than 9 days per month DIAZEPAM 5 MG TABLET Take 1 tablet by mouth 2 (two) times daily as needed (severe migraine). No more than 2 days a week, 8 days a month. Do not take with butalbital or other ASSIGNMENT OFFICER depressants DULOXETINE 30 MG CAPSULE Take 1 [...] gestational, resolved. 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 Drug use: No Sexual activity: Yes Partners: Male control/protection: None Comment: Last intercourse: 11/19/2022 Other Topics Concern Seat Belt Yes Comment: Sometimes Social History Narrative Denies domestic or physical violence within the home Nondenominational Preference: None Patient lives with her children, [...] complete the procedure, cardiovascular complications such as [place], stroke, arrhythmia, and . Informed consent obtained. Vasiliy Sotomayor DO Gastroenterology PGY 6 Pager#[phone] [employer] Associated attestation - Ry Forman MD - 05/09/2024 1:09 PM [employer] P[employer]ER I personally examined the patient on 05/09/[address] Sotomayor's resident/fellow note as written. I actively participated in the decision-making process. Please see the resident/fellow's note for additional details. Ry Forman MD [facility] Oxyacetylene Welder Gastroenterology [facility] 2023-01-08 19:29:53 Formatting of this n ote might be different from the original. See FINANCIAL PLANNING ADVISOR consult note for H&P Mariajose Ramsey MD [facility]
== END 2024-07-18 05:18 | disposition home or self-care (01) ==
LOC: ER 02:10
DX: N39.0 Urinary tract infection, site not specified (principal)
CPT/HCPCS: 96365; 96361; 87088; 85025; 81001; 87086; 36415; 81025; 83690; 80053; 74176; 96375; 99284; J2405; J7030; J0696

== ENCOUNTER 2024-08-20 16:19 | Emergency (ER) | payer OTHER ==
--- OUTSIDE RECORDS SUMMARY | 2024-08-20 16:33 | XMS REPORT | Continuity of Care Document ---
Author Name Unknown Address [address] [facility] [address] [place] [address] [facility] thconnect Address [address] [facility] [place] [address] Care Team Providers Care Drill Press Tender Name Role Phone Thais Foy Primary Care Physician +[phone] YOLANDA BACA Attending Clinician Unavailable KAY SMITH Attending Clinician Unavailable ROSAS DUMONT Attending Clinician Unavailable KALE CHANDRA Attending Clinician Unavail able THAIS MARIN Attending Clinician Unavailable Doctor Unassigned, [place] Attending Clinician U navailable Lab, Ang - Db Attending Clinician Unavailable Tamir Evans MD Attending Clinician [phone] TAMIR EVANS Attending Clinician Unavailable EVANS TAMIR Attending Clinician Unavailable Kay Felix Attending Clinician [phone] Ocampo [facility], Larisa Keerthi Attending Clinician Unavailab Thais Nelson Attending Clinician + [phone] Sacha Lowe MD Attending Clinician Unavailable Juan Reece DO Attending Clinician +[phone] Juan LIMAhT, Cari Darden Attending Clinician Unaarjun Dumont AUTOMATIC CAR WASH ATTENDANT, Rosas Attending Clinician [phone] COOKIE MELGAR Attending Clinician Unavailable COOKIE MELGAR Attending Clinician Unavailable Ramón AUTOMATIC CAR WASH ATTENDANT, Cookie Mari Attending Clinician [phone] REJI FORMAN Attending Clinician Unavailable Reji Forman MD Attending Clinician [phone] Dolly AUTOMATIC CAR WASH ATTENDANT, Rosette Attending Clinician [phone] [facility], Shandra Lucero Attending Clinician MILLIE Knott Attending Clinician Unavail able Mauri [facility], Azalea Attending Clinician Unavailable Erik [facility], Mary Gudino Attending Clinician Unavail able Davidson commercial coordinator, Amadeo Attending Clinician Unavailable Lab, Lcc Attending Clinician Unavailable Oziel LIMAhT, Domenica Attending Clinician Unavaila regina Conley AUTOMATIC CAR WASH ATTENDANTAyde Attending Clinician + [phone] Unknown, Attending Attending Clinician Unavailab AYDE Sharp Attending Clinician Unavailab juan j Morse CPhT, Wade Attending Clinician Unavailable Mauri [facility], Azalea Attending Clinician Unavailable Thais Foy Attending Clinician + [phone] Lab, Ang - Db Attending Clinician Unavailable Kay Felix Attending Clinician [phone] Sacha Lowe MD Attending Clinician +[phone] Juan Reece DO Attending Clinician +[phone] Millie Bridges MD Attending Clinician JOANNE MELISSA Attending Clinician Unavailable Joanne Melissa MD Attending Clinician +[phone] KVNG GILMAN Attending Clinician UnavailKvng Mcneal MD Attending Clinician +- [phone] ROSETTE GAN Attending Clinician Unavailable TAWANA JEAN Attending Clinician UnavailBOB Valdovinos Attending Clinician UnavailBOB Elliott Attending Clinician Unavailmiguelito Montejo OT, Ana A Attending Clinician Unavail able Bob Flores MD Attending Clinician [phone] JOSE C WELLINGTON Attending Clinician Unavailable Dolly JOHNSTON, Rosette Attending Clinician +[phone] Jose C Wellington MD Attending Clinician [phone] PETE OWENS Attending Clinician Unavail able [facility], [facility] Nurse Attending Clinician Unava harsh Owens [facility] Simon Attending Clinician + MORRO MICHAEL Attending Clinician Unavailab BOGDAN Almeida Attending Clinician Unavailable Lorena Kirk MD Attending Clinician [phone] Morro Michael DNP Attending Clinician + [phone] [facility] Attending Clinician Unavailable Juan Hernandez DO Attending Clinician +[phone] Unruly Tran MD Attending Clinician +[phone] Doctor Unassigned, [place] Attending Clinician U gelacio Mari MD, Carlo Attending Clinician +[phone] Tawana Jean CNM Attending Clinician [phone] UNRULY TRAN Attending Clinician Unavailab JOAQUIM Be Attending Clinician Unavailab Joaquim Be DO Attending Clinician +[phone] CARLO MARI Attending Clinician Unavailable Unknown, Attending Attending Clinician Unavailab ROMULO Luna Attending Clinician UnavailROMULO Rios Attending Clinician Unavaila regina Buck, [facility] Attending Clinician UnavailRomulo Rios MD Attending Clinician +[phone] CARLITO MORAN Attending Clinician Unavailable Carlito Moran MD Attending Clinician [phone] [facility] Resident Attending Clinician U LORENA Curry Attending Clinician Unavailable Albino ALEXADNRE, Shy Lucero Attending Clinician + [phone] Yolanda Baca MD Attending Clinician +[phone] Rafa TONY, Jose Attending Clinician +[phone] Pcp-Lab Attending Clinician Unavailable Pgy2 Attending Clinician Unavailable Carolyn TONY, Alissa Attending Clinician +[phone] KEVIN PELLETIER Attending Clinician UnavailKEVIN Yu Attending Clinician Unavailmarlene Giles, [facility] Attending Clinician Unavailable MARIANN JOHN Attending Clinician Unavailable Mariann John MD Attending Clinician +[phone] DEB BENAVIDEZ Attending Clinician Unavailab Deb Landa DO Attending Clinician + [phone] Mariajose Ramsey MD Attending Clinician +[phone] MARIAJOSE RAMSEY Attending Clinician Unavailable Clary Perez Attending Clinician +[phone] Ese Puga RN Attending Clinician UnavailSevero Burch MD Attending Clinicia n [facility] Attending Clinician Unavailable MAMIE WILSON Attending Clinician Unavailable MAMIE WILSON Attending Clinician Unavailable Lab, Pea-Rmchp Attending Clinician Unavailable Mamie Wilson MD Attending Clinician [phone] 1, [facility] Room Attending Clinician Unavailab Saad Bynum Attending Clinician Unavailable Pcp, Patient Does Not Have A Attending Clinician Karon Wesley Attending Clinician +[phone] SANDHYA ARAYA Attending Clinician Unavailable SANDHYA ARAYA Attending Clinician Unavailable Rowdy TONY, Gillian Attending Clinician + [phone] Evie SILVA, Winifred Anne Attending Clinician +[phone] Juan Torres MD Attending Clinician +[phone] LEYDI CASTRO Attending Clinician Unavailable Leydi Leigh Attending Clinician +[phone] Lab, Ang-Rmchp Attending Clinician Unavailable Provider, Ang-Rmchp Temp Attending Clinician Sharon JIGNESH Evans Attending Clinician Unavailab CM Beckham Attending Clinician Unavailable WINIFRED JAMES Attending Clinician Unavailable SULEIMAN LOERA Attending Clinician Unavailable Matheus AUTOMATIC CAR WASH ATTENDANT, Suleiman Attending Clinician [phone] [facility], LOUISE Piedra Attending Clinician Unavailable Case AUTOMATIC CAR WASH ATTENDANT, Jignesh Jaffe Attending Clinician + [phone] [facility] AUTOMATIC CAR WASH ATTENDANT, Louise Piedra Attending Clinician [phone] Sydnie AUTOMATIC CAR WASH ATTENDANT-CJamie Attending Clinician [phone] [place] Attending Clinician Unavailable JAMIE WALL Attending Clinician UnavailJAMIE López Attending Clinician UnavailSam John Attending Clinician +[phone] Lara Atkinson RN Attending Clinician Unavailable Juan Marshall DO Attending Clinician [phone] Radha Hawkins MD Attending Clinician +[phone] RADHA HAWKINS Attending Clinician Unavailabl Sam Olivares Attending Clinician Unavailable Luisa Logan Attending Clinician +[phone] LUISA MA Attending Clinician Unavailable Jessica Bob MD Attending Clinician +[phone] JESSICA BOB Attending Clinician Unavailable MANAN PÉREZ III Attending Clinician UnavailManan Gutierrez Attending Clinician +[phone] YOLANDA BACA Admitting Clinician Unavailable REJI FORMAN Admitting Clinician Unavailable Reji Forman MD Admitting Clinician +[phone] JOANNE MELISSA Admitting Clinician Unavailable JOAQUIM TORRES Admitting Clinician Unavailab CARLITO Lewis Admitting Clinician Unavailable LORNEA KIRK Admitting Clinician Unavailable Lorena Kirk MD Admitting Clinician +[phone] MARIANN JOHN Admitting Clinician Unavailable DEB BENAVIDEZ Admitting Clinician Unavailab MARIAJOSE James Admitting Clinician Unavailable Mariajose Ramsey MD Admitting Clinician +[phone] Physician, No Primary or Family Admitting Clinic win Unavailable JUAN TORRES Admitting Clinician Unavailable Juan Torres MD Admitting Clinician +[phone] LEYDI CASTRO Admitting Clinician Unavailable INOCENCIO Admitting Clinician Unavailable RADHA HAWKINS Admitting Clinician UnavailSam Poe Admitting Clinician Unavailable LUISA MA Admitting Clinician Unavailable JESSICA BOB Admitting Clinician Unavailable MANAN PÉREZ III Admitting Clinician Unavaila ble Payers Payer Name Policy Type Policy Number Effective Date Expirati on Date Source [facility] [id number] 2022 00:00:00 MED[place]ID [place] [id number] 2022 00:00:00 MEDICAID PENDING PENDING 2022 00:00:00 [facility]MP [id number] 2020 00:00:00 Problems Condition Name Condition Details Condition Category Status Onset Date Resolution Date Last Treatment Date Treating Clinician Comments Source Refractory migraine without aura Refractory migraine without aura Disease Active 16 00:00: 00 [facility] Obesity (BMI 30-39.9) Obesity (BMI 30-39.9) Disease Active 2023-06 00:00: 00 [facility] Change in bowel habits Change in bowel habits Disease Active 03-01 00:00: 00 [facility] Diarrhea, unspecifie d type Diarrhea, unspecifie d type Disease Active 03-01 00:00: 00 [facility] Blood in stool Blood in stool Disease Active 03-01 00:00: 00 [facility] Epigastric pain Epigastric pain Disease Active 03-01 00:00: 00 [facility] Dysphagia, unspecifie d type Dysphagia, unspecifie d type Disease Active 03-01 00:00: 00 [facility] Gastroesop hageal reflux disease, unspecifie d whether esophagiti s present Gastroesop hageal reflux disease, unspecifie d whether esophagiti s present Disease Active 2024-0 9-11 00:00: 00 [facility] NSAID long-term use NSAID long-term use Disease Active 9-11 00:00: 00 [facility] Early satiety Early satiety Disease Active - 00:00: 00 [facility] Flatulence , eructation , and gas pain Flatulence , eructation , and gas pain Disease Active - 00:00: 00 [facility] NSAID long-term use NSAID long-term use Disease Active - 00:00: 00 [facility] Intractabl e chronic migraine with aura with status migrainosu s Intractabl e chronic migraine with aura with status migrainosu s Disease Active 9-05 00:00: 00 [facility] NADYA (obstructi ve sleep apnea) NADYA (obstructi ve sleep apnea) Disease Active 2022-06 2-31 00:00: 00 [facility] Status migrainosu s Status migrainosu s Disease Active 2022-06 1-10 00:00: 00 [facility] Status post hysterosco py Status post hysterosco py Disease Active 2022-06 1-06 00:00: 00 [facility] Observed seizure-li ke activity Observed seizure-li ke activity Disease Active 2022-06 1-06 00:00: 00 [facility] Positive LAST (antinucle ar antibody) Positive LAST (antinucle ar antibody) Disease Active 2022-06 0-20 00:00: 00 [facility] 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 Disease Active 2022-06 0-20 00:00: 00 [facility] Abnormal uterine bleeding Abnormal uterine bleeding Disease Active 2022-06 0-16 00:00: 00 [facility] Multiparit y Multiparit y Disease Active 6-23 00:00: 00 [facility] History of arthritis History of arthritis Disease Active 2-21 00:00: 00 [facility] Fibrocysti c breast disease (FCBD), unspecifie d laterality Fibrocysti c breast disease (FCBD), unspecifie d laterality Disease Active 2021-06 0-14 00:00: 00 [facility] Overweight (BMI 25.0-29.9) Overweight (BMI 25.0-29.9) Disease Active 2- 00:00: 00 [facility] Overweight Overweight Disease Active 2 00:00: 00 [facility] Anemia of mother in , antepartum Anemia of mother in , antepartum Disease Active 3- 00:00: 00 [facility] Depression , unspecifie d depression type Depression , unspecifie d depression type Disease Active 8- 00:00: 00 [facility] UTI (urinary tract infection) during UTI (urinary tract infection) during Disease Resolve d 0 6-24 00:00: 00 2023-07-01 00:00:00 2023-07-01 15:40:26 [facility] Obesity in Obesity in Disease Resolve d 0 6-23 00:00: 00 2023-07-01 00:00:00 2023-07-01 15:40:29 [facility] Previous delivery affecting , antepartum Previous delivery affecting , antepartum Disease Resolve d 0 6-23 00:00: 00 2023-07-01 00:00:00 2023-07-01 15:40:34 Overview: Formattin g of this note might be different from the original. x4 will need follow up usg at 28-30week s for placenta [facility] Spontaneou s Spontaneou s Disease Resolve d 0 7-21 00:00: 00 2023-05-11 00:00:00 2023-05-11 10:34:39 [facility] Molar Molar Disease Resolve d 0 7-17 00:00: 00 2023-05-11 00:00:00 2023-05-11 10:34:35 [facility] Susceptibl e to varicella (non-immun e), currently Susceptibl e to varicella (non-immun e), currently Disease Resolve d 6-26 00:00: 00 2023-05-11 00:00:00 2023-05-11 10:34:30 Overview: Formattin g of this note might be different from the original. Address pp [facility] Supervisio n of high-risk Supervisio n of high-risk Disease Resolve d 6-23 00:00: 00 2023-05-11 00:00:00 2023-05-11 10:34:25 [facility] Ovarian cyst, left Ovarian cyst, left Disease Resolve d 5-04 00:00: 00 2023-05-11 00:00:00 2023-05-11 10:34:19 [facility] Miscarriag e Miscarriag e Disease Resolve d 4-08 00:00: 00 2022-10-22 00:00:00 2022-10-22 16:41:49 [facility] Maternal varicella, non-immune Maternal varicella, non-immune Disease Resolve d 2-23 00:00: 00 2022-10-22 00:00:00 2022-10-22 15:24:37 [facility] Heartburn in Heartburn in Disease Resolve d 2-21 00:00: 00 2022-10-22 00:00:00 2022-10-22 15:24:32 [facility] History of gestationa l hypertensi on History of gestationa l hypertensi on Disease Resolve d 2-21 00:00: 00 2022-10-22 00:00:00 2022-10-22 15:24:34 [facility] Hx of maternal blood transfusio n, currently Hx of maternal blood transfusio n, currently Disease Resolve d 2-21 00:00: 00 2022-10-22 00:00:00 2022-10-22 15:24:35 [facility] Nausea and vomiting, unspecifie d vomiting type Nausea and vomiting, unspecifie d vomiting type Disease Active 2-21 00:00: 00 2022-10-22 00:00:00 2022-10-22 15:24:38 [facility] Nausea and vomiting during Nausea and vomiting during Disease Resolve d 2-21 00:00: 00 2022-10-22 00:00:00 2022-10-22 15:24:38 [facility] Previous delivery affecting , antepartum Previous delivery affecting , antepartum Disease Resolve d 2-01 00:00: 00 2022-10-22 00:00:00 2022-10-22 16:41:47 [facility] Obesity affecting Obesity affecting Disease Resolve d 2- 00:00: 00 2022-10-22 00:00:00 2022-10-22 15:24:40 [facility] Anemia of mother in , antepartum Anemia of mother in , antepartum Disease Resolve d 3-02 00:00: 00 2022-10-22 00:00:00 2022-10-22 15:24:30 [facility] Anxiety and depression affecting Anxiety and depression affecting Disease Resolve d 2015-06 1-23 00:00: 00 2022-10-22 00:00:00 2022-10-22 16:41:52 [facility] Chronic anemia Chronic anemia Disease Resolve d 2- 00:00: 00 2022-09-23 00:00:00 2022-09-23 20:28:40 [facility] Dysmenorrh ea Dysmenorrh ea Disease Resolve d 2021-06 0-29 00:00: 00 2022-08-11 00:00:00 2022-08-11 16:01:02 [facility] History of breast pain History of breast pain Disease Resolve d 2021-06 0-29 00:00: 00 2022-08-11 00:00:00 2022-08-11 16:01:11 [facility] Breakthrou gh bleeding on contracept debra patch Breakthrou gh bleeding on contracept debra patch Disease Resolve d 2021-06 0-29 00:00: 00 2022-08-11 00:00:00 2022-08-11 16:01:01 [facility] Irregular menstrual cycle Irregular menstrual cycle Disease Resolve d 2021-06 0-14 00:00: 00 2022-08-11 00:00:00 2022-08-11 16:01:09 [facility] Encounter for surveillan ce of transderma l patch hormonal contracept debra device Encounter for surveillan ce of transderma l patch hormonal contracept debra device Disease Resolve d 2021-06 0-13 00:00: 00 2022-08-11 00:00:00 2022-08-11 16:00:08 [facility] Need for HPV vaccinatio n Need for HPV vaccinatio n Disease Resolve d 1-07 00:00: 00 2022-08-11 00:00:00 2022-08-11 16:01:12 [facility] Blood transfusio n affecting Blood transfusio n affecting Disease Resolve d 3-01 00:00: 00 2022-08-11 00:00:00 2022-08-11 20:53:05 [facility] Anemia affecting in third trimester Anemia affecting in third trimester Disease Resolve d 2-23 00:00: 00 2022-08-11 00:00:00 2022-08-11 20:52:54 [facility] Pain of both breasts Pain of both breasts Disease Resolve d 2021-06 0-14 00:00: 00 2022-04-18 00:00:00 2022-04-18 12:17:21 [facility] Screening for malignant neoplasm of the cervix Screening for malignant neoplasm of the cervix Disease Resolve d 2021-06 0-13 00:00: 00 2022-04-18 00:00:00 2022-04-18 12:17:39 [facility] Itching of vagina Itching of vagina Disease Resolve d 0 5-24 00:00: 00 2022-04-18 00:00:00 2022-04-18 12:17:14 [facility] Dysuria Dysuria Disease Resolve d 5-24 00:00: 00 2022-04-18 00:00:00 2022-04-18 12:17:37 [facility] Class 2 obesity with body mass index (BMI) of 35.0 to 35.9 in adult, unspecifie d obesity type, unspecifie d whether serious comorbidit y present Class 2 obesity with body mass index (BMI) of 35.0 to 35.9 in adult, unspecifie d obesity type, unspecifie d whether serious comorbidit y present Disease Resolve d 1-07 00:00: 00 2022-04-18 00:00:00 2022-04-18 12:17:34 [facility] Screening examinatio n for STD (sexually transmitte d disease) Screening examinatio n for STD (sexually transmitte d disease) Disease Resolve d 2017-06 1 00:00: 00 2022-04-18 00:00:00 2022-04-18 12:17:28 [facility] BMI 35.0-35.9, adult BMI 35.0-35.9, adult Disease Resolve d 4-06 00:00: 00 2022-04-18 00:00:00 2022-04-18 12:17:24 [facility] Routine follow-up Routine follow-up Disease Resolve d 2017-06 00:00: 00 2018-04-26 00:00:00 2018-04-26 16:09:28 [facility] 39 weeks gestation of 39 weeks gestation of Disease Resolve d 03-07 00:00: 00 2018-04-01 00:00:00 2018-04-01 13:20:03 [facility] Group B streptococ kavon infection during Group B streptococ kavon infection during Disease Resolve d 9-05 00:00: 00 2018-04-01 00:00:00 2018-04-01 13:20:06 [facility] Supervisio n of high risk , antepartum Supervisio n of high risk , antepartum Disease Resolve d 7-17 00:00: 00 2018-04-01 00:00:00 2018-04-01 13:20:11 [facility] Back pain with right-side d sciatica Back pain with right-side d sciatica Disease Resolve d 7-03 00:00: 00 2018-04-01 00:00:00 2018-04-01 13:20:04 [facility] Urinary tract infection without hematuria, site unspecifie d Urinary tract infection without hematuria, site unspecifie d Disease Resolve d 2-21 00:00: 00 2018-04-01 00:00:00 2018-04-01 13:20:02 [facility] Multiparit y Multiparit y Disease Resolve d 2-01 00:00: 00 2018-04-01 00:00:00 2018-04-01 13:20:08 [facility] H/O miscarriag e, currently H/O miscarriag e, currently Disease Resolve d 2-01 00:00: 00 2018-04-01 00:00:00 2018-04-01 13:20:07 [facility] Hypertensi on Hypertensi on Disease Resolve d 2018-03-08 00:00:00 2018-03-08 07:51:04 [facility] Back pain affecting , antepartum Back pain affecting , antepartum Disease Resolve d 621 00:00: 00 2018-02-18 00:00:00 2018-02-18 10:57:31 [facility] History of 3 sections History of 3 sections Disease Resolve d 7-03 00:00: 00 2018-01-18 00:00:00 2018-01-18 14:54:25 [facility] Supervisio n of high risk in second trimester Supervisio n of high risk in second trimester Disease Resolve d 4-09 00:00: 00 2018-01-04 00:00:00 2018-01-04 10:26:26 [facility] Feeling light headed Feeling light headed Disease Resolve d 3-21 00:00: 00 2017-11-23 00:00:00 2017-11-23 15:29:15 [facility] Circumvall ate placenta during in third trimester, antepartum Circumvall ate placenta during in third trimester, antepartum Disease Resolve d 2016-0 2-02 00:00: 00 2017-11-23 00:00:00 2017-11-23 15:29:06 [facility] Subchorion ic hematoma, third trimester, fetus 1 Subchorion ic hematoma, third trimester, fetus 1 Disease Resolve d 2016-0 2-02 00:00: 00 2017-11-23 00:00:00 2017-11-23 15:29:07 [facility] Supervisio n of high risk , antepartum , first trimester Supervisio n of high risk , antepartum , first trimester Disease Resolve d 0 3-13 00:00: 00 2017-09-27 00:00:00 2017-09-27 14:42:24 [facility] Supervisio n of high-risk of young primigravi da Supervisio n of high-risk of young primigravi da Disease Resolve d 0 - 00:00: 00 2017-08-31 00:00:00 2017-08-31 07:52:24 [facility] Previous delivery affecting , antepartum Previous delivery affecting , antepartum Disease Resolve d 2016-0 4-06 00:00: 00 2017-07-22 00:00:00 2017-07-22 11:18:09 [facility] Anxiety during in third trimester, antepartum Anxiety during in third trimester, antepartum Disease Resolve d 2016-0 2-21 00:00: 00 2017-07-22 00:00:00 2017-07-22 11:18:05 [facility] High-risk , third trimester High-risk , third trimester Disease Resolve d 2016-0 2-02 00:00: 00 2017-07-22 00:00:00 2017-07-22 11:18:16 [facility] Anemia complicati ng , third trimester Anemia complicati ng , third trimester Disease Resolve d 2016-0 1-19 00:00: 00 2017-07-22 00:00:00 2017-07-22 11:17:53 [facility] Left sided sciatica Left sided sciatica Disease Resolve d 2015-06 00:00: 00 2017-07-22 00:00:00 2017-07-22 11:18:01 [facility] Numbness of left foot Numbness of left foot Disease Resolve d 2015-06 00:00: 00 2017-07-22 00:00:00 2017-07-22 11:17:53 [facility] Vaginal bleeding in , second trimester Vaginal bleeding in , second trimester Disease Resolve d 2015-06 00:00: 00 2017-07-22 00:00:00 2017-07-22 11:17:59 [facility] E. coli UTI E. coli UTI Disease Resolve d 2015-06 00:00: 00 2017-07-22 00:00:00 2017-07-22 11:17:35 [facility] UTI in , second trimester UTI in , second trimester Disease Resolve d 2015-06 00:00: 00 2017-07-22 00:00:00 2017-07-22 11:17:41 [facility] Echogenic bowel of fetus on ultrasound Echogenic bowel of fetus on ultrasound Disease Resolve d 2015-06 00:00: 00 2017-07-22 00:00:00 2017-07-22 11:17:23 [facility] Persistent cough Persistent cough Disease Resolve d 2015-06 00:00: 00 2017-07-22 00:00:00 2017-07-22 11:17:26 [facility] Incomplete ABx Course Incomplete ABx Course Disease Resolve d 9-16 00:00: 00 2017-07-22 00:00:00 2017-07-22 11:17:20 [facility] GBS carrier GBS carrier Disease Resolve d 8- 00:00: 00 2017-07-22 00:00:00 2017-07-22 11:17:16 [facility] UTI in , first trimester UTI in , first trimester Disease Resolve d 8- 00:00: 00 2017-07-22 00:00:00 2017-07-22 11:17:31 [facility] Nausea and vomiting during prior to 22 weeks gestation Nausea and vomiting during prior to 22 weeks gestation Disease Resolve d 02-10 00:00: 00 2017-07-22 00:00:00 2017-07-22 11:17:44 [facility] Vaginal bleeding in , first trimester Vaginal bleeding in , first trimester Disease Resolve d 02-10 00:00: 00 2017-07-22 00:00:00 2017-07-22 11:17:38 [facility] Threatened miscarriag e in early Threatened miscarriag e in early Disease Resolve d 02-10 00:00: 00 2017-07-22 00:00:00 2017-07-22 11:17:29 [facility] Previous section complicati ng Previous section complicati ng Disease Resolve d 02-10 00:00: 00 2017-07-22 00:00:00 2017-07-22 11:17:13 [facility] History of dilatation and curettage History of dilatation and curettage Disease Resolve d 02-10 00:00: 00 2017-07-22 00:00:00 2017-07-22 11:17:08 [facility] Anxiety and depression Anxiety and depression Disease Resolve d 02-10 00:00: 00 2017-07-22 00:00:00 2017-07-22 11:17:52 [facility] Nausea and vomiting during prior to 22 weeks gestation Nausea and vomiting during prior to 22 weeks gestation Disease Resolve d 02-10 00:00: 00 2017-07-22 00:00:00 2017-07-22 11:17:44 [facility] 33 weeks gestation of 33 weeks gestation of Disease Resolve d 08-19 00:00: 00 2016-08-25 00:00:00 2016-08-25 14:26:16 [facility] 32 weeks gestation of 32 weeks gestation of Disease Resolve d 2 00:00: 00 2016-08-25 00:00:00 2016-08-25 14:26:12 [facility] Anxiety during in second trimester, antepartum Anxiety during in second trimester, antepartum Disease Resolve d 2015-06 00:00: 00 2016-08-11 00:00:00 2016-08-11 09:11:24 [facility] Subchorion ic hematoma in second trimester Subchorion ic hematoma in second trimester Disease Resolve d 2015-06 00:00: 00 2016-08-11 00:00:00 2016-08-11 09:10:51 [facility] Vaginal bleeding Vaginal bleeding Disease Resolve d 2015-06 00:00: 00 2016-08-11 00:00:00 2016-08-11 09:10:25 [facility] High-risk , second trimester High-risk , second trimester Disease Resolve d 2015-06 00:00: 00 2016-07-23 00:00:00 2016-07-23 16:28:31 [facility] Circumvall ate placenta during in second trimester, antepartum Circumvall ate placenta during in second trimester, antepartum Disease Resolve d 2015-06 00:00: 00 2016-07-23 00:00:00 2016-07-23 16:27:27 [facility] Subchorion ic hematoma in first trimester Subchorion ic hematoma in first trimester Disease Resolve d 02-10 00:00: 00 2016-07-23 00:00:00 2016-07-23 16:28:07 [facility] Supervisio n of high-risk , first trimester Supervisio n of high-risk , first trimester Disease Resolve d 02-10 00:00: 00 2016-05-13 00:00:00 2016-05-13 15:40:56 [facility] Anxiety during in first trimester, antepartum Anxiety during in first trimester, antepartum Disease Resolve d 02-10 00:00: 00 2016-05-13 00:00:00 2016-05-13 15:41:37 [facility] Allergies, Adverse Reactions, Alerts Allergy Name Allergy Type Status Severity Reaction(s) Onset Date Inactive Date Treating Clinician Comments Source IODINATE D CONTRAST MEDIA Drug Class Active Anaphylaxis 8 00:00: 00 [facility] Iodinate d Contrast Media Propensi ty to adverse reaction s Active Anaphylaxis 8 00:00: 00 [facility] No Known Allergie s DA Active U 6- 00:00: 00 [facility] Iodine Drug Allergy Active Swelling 2 00:00: 00 [facility] Iodine Propensi ty to adverse reaction s Active Swelling 07-22 00:00: 00 [facility] IODINE DRUG INGREDI Active High Anaphylaxis 07-22 00:00: 00 [facility] Social History Social Habit Start Date Stop Date Quantity Comments Source ASSERTION 2022-11-09 00:00:00 [facility] History of Social function 2024-07-31 00:00:00 2024-07-31 00:00:00 [facility] Alcoholic beverage intake 2024-05-10 00:00:00 2024-05-10 00:00:00 Ex-drinker (finding) [facility] Alcohol intake 2023-10-20 00:00:00 2023-10-20 00:00:00 Ex-drinker (finding) [facility] Tobacco use and exposure 2023-01-09 00:00:00 2023-01-09 00:00:00 Smokeless tobacco non-user [facility] Exposure to SARS-CoV-2 (event) 2022-12-01 00:00:00 2022-12-11 09:58:00 Not sure [facility] History SDOH Alcohol Frequency 2020-06-27 00:00:00 2020-06-27 00:00:00 3 [facility] History SDOH Alcohol Std Drinks 2020-06-27 00:00:00 2020-06-27 00:00:00 99 [facility] History SDOH Alcohol Binge 2020-06-27 00:00:00 2020-06-27 00:00:00 99 [facility] Alcohol Comment 2020-06-27 00:00:00 2020-06-27 00:00:00 on occassion, liquor and beer on occassions. [facility] Sex assigned at 1995 00:00:00 1995 00:00:00 [facility] Smoking Status Start Date Stop Date Source Never smoked tobacco [facility] Medications Ordered Medication Name Filled Medication Name Start Date Stop Date Current Medication? Ordering Clinician Indication Dosage Frequency Signature (SIG) Comments Components Source sulfamethox azole-trime thoprim (BACTRIM DS) 800-160 mg per tablet 10 00:00: 00 08-05 05:59 :00 Yes [id number] 1{tbl} Take 1 tablet by mouth in the morning and 1 tablet in the evening. Do all this for 4 days. [facility] fluconazole 200 mg tablet 07-31 00:00: 00 08-02 05:59 :00 Yes [id number] 200mg Take 1 tablet by mouth in the morning for 1 dose. [facility] DIAZEPAM 5 mg tablet 07-16 00:00: 00 Yes [id number] TAKE 1 TABLET BY MOUTH 2 TIMES DAILY NEEDED (SEVERE MIGRAINE). NO MORE THAN 2 DAYS A WEEK, 8 DAYS A MONTH. DO NOT TAKE WITH BUTALBITAL OR OTHER BRIDGE TEACHER DEPRESSANT S [facility] clostridium botulinum toxin (BOTOX) injection 155 Units 07-06 18:45: 00 07-06 17:52 :00 No [id number] 155U 155 Units, Intramuscu lar, ONCE, 1 dose, On Wed07/06/24 at 1245, Routine, body team member approving Restricted medication : PIPES, KAY [facility] diazePAM 5 mg tablet 2023-06 2-30 00:00: 00 07-16 00:00 :00 No [id number] 5mg Take 1 tablet by mouth 2 (two) times daily as needed (severe migraine). No more than 2 days a week, 8 days a month. Do not take with butalbital or other BRIDGE TEACHER depressant s [facility] omeprazole 40 mg capsule 2023-06 2-05 00:00: 00 Yes [id number] 40mg Take 1 capsule by mouth in the morning and 1 capsule in the evening. [facility] DIAZEPAM 5 mg tablet 2023-06 00:00: 00 06-19 00:00 :00 No [id number] 5mg TAKE 1 TABLET BY MOUTH 2 (TWO) TIMES DAILY NEEDED (SEVERE MIGRAINE). NO MORE THAN 2 DAYS A WEEK, 8 DAYS A MONTH. DO NOT TAKE WITH BUTALBITAL OR OTHER BRIDGE TEACHER DEPRESSANT S [facility] ondansetron (ZOFRAN (PF)) injection 4 mg 2023-06 21:30: 00 05-09 20:41 :00 No 4mg 4 mg, Slow IV Push, ONCE, On Wed05/09/24 at 1530, For 1 dose, PACU, Please give medication over 2-5 minutes. [facility] simethicone (GAS RELIEF (SIMETHICON E)) 40 mg/0.6 mL drops 2023-06 19:41: 00 05-09 22:50 :59 No PRN, Starting on Wed05/09/24 at 1341, Until Wed05/09/24 at 1650, Routine, Intra-op [facility] eletriptan 40 mg tablet 2023-06 00:00: 00 Yes [id number] 40mg Take 1 tablet by mouth SEE-INSTRU CTIONS. Take 1 tab at onset of migraine. May repeat in 2 hours if necessary. No more than 9 days per month [facility] clostridium botulinum toxin (BOTOX) injection 155 Units 2023-06 15:30: 00 04-13 14:43 :00 No [id number] 155U 155 Units, Intramuscu lar, ONCE, 1 dose, On Wed04/13/24 at 1030, Routine, body team member approving Restricted medication : KAY SMITH [facility] scopolamine transdermal 1 mg over 3 days patch 2023-06 00:00: 00 Yes [id number] 1.5mg Apply 1 Patch to area(s) every 72 (seventy-t wo) hours. For motion sickness, cruise ship [facility] diazePAM 5 mg tablet 2023-06 00:00: 00 05-11 00:00 :00 No [id number] 5mg Take 1 tablet by mouth 2 (two) times daily as needed (severe migraine). No more than 2 days a week, 8 days a month. Do not take with butalbital or other BRIDGE TEACHER depressant s [facility] peg-electro lyte soln 236-22.74-6 .74 -5.86 gram solution 03-01 00:00: 00 05-09 00:00 :00 No [id number] Take as directed before colonoscop y [facility] butalbital- acetaminoph en-caff 50-325-40 mg tablet 02-23 00:00: 00 Yes [id number] 1{tbl} Take 1 tablet by mouth every 4 (four) hours as needed (severe migraine). Use sparingly no more than 9 days per month [facility] methocarbam oL 750 mg tablet 02-23 00:00: 00 Yes [id number] 750mg Take 1 tablet by mouth 3 (three) times daily as needed for Other (muscle spasms). [facility] ketorolac 10 mg tablet 02-23 00:00: 00 Yes [id number] 10mg Take 1 tablet by mouth every 6 (six) hours as needed (migraine) . [facility] ubrogepant (UBRELVY) 100 mg tablet 02-23 00:00: 00 Yes [id number] 100mg Take 1 tablet by mouth at onset of migraine symptoms. May repeat in 2 hours if needed. Max of 2 tablets per 24 hours. [facility] proMETHazin e 25 mg tablet 02-23 00:00: 00 Yes [id number] 25mg Take 1 tablet by mouth every 4 (four) hours as needed for N/V alternatin g with Ondansetro n. [facility] diazePAM 2 mg tablet 02-23 00:00: 00 04-13 00:00 :00 No [id number] 2mg Take 1 tablet by mouth 2 (two) times daily as needed (severe migraine). No more than 2 days a week, 8 days a month. Do not take with butalbital or other BRIDGE TEACHER depressant s [facility] ciprofloxac in-dexameth asone 0.3-0.1 % otic drops 02-16 00:00: 00 02-24 04:59 :00 No [id number] 4[drp] Place 4 Drops in left ear in the morning and 4 Drops in the evening. Do all this for 7 days. [facility] bromphenira mine-pseudo ephedrine-D M 2-30-10 mg/5 mL syrup 02-16 00:00: 00 02-22 04:59 :00 No [id number] 5mL Take 5 mL by mouth 4 (four) times daily as needed for Congestion /Allergies for up to 5 days. [facility] atogepant (QULIPTA) 60 mg Tab tablet 01-17 00:00: 00 Yes [id number] 60mg Take 1 tablet by mouth in the morning. [facility] ALPRAZolam (XANAX) 0.5 mg tablet 11-24 00:00: 00 11-25 04:59 :00 No [id number] .5mg Take 1 tablet by mouth once now for 1 dose. [facility] azelastine 137 mcg (0.1 %) nasal spray 11-16 00:00: 00 Yes [id number] 1{spray } USE 1 SPRAY IN EACH NOSTRIL IN THE MORNING AND 1 SPRAY IN THE EVENING DIRECTED [facility] ondansetron (ZOFRAN-ODT ) disintegrat ing tablet 8 mg 11-15 18:30: 00 11-15 17:43 :00 No [id number] 8mg 8 mg, Oral, ONCE, 1 dose, On Wed11/16/23 at 1330, Routine [facility] clostridium botulinum toxin (BOTOX) injection 155 Units 11-15 18:30: 00 11-15 17:44 :00 No [id number] 155U 155 Units, Intramuscu lar, ONCE, 1 dose, On Wed11/16/23 at 1330, Routine, body team member approving Restricted medication : KAY SMITH [facility] lidocaine 5 % (700 mg/patch) patch 11-15 00:00: 00 Yes [id number] 1{patch } Apply 1 Patch to area(s) in the morning and 1 Patch in the evening. [facility] ondansetron 8 mg disintegrat ing tablet 11-15 00:00: 00 Yes [id number] 8mg Take 1 tablet by mouth every 8 (eight) hours as needed for Nausea and Vomiting (N/V) (or migraine). [facility] ondansetron 4 mg disintegrat ing tablet 11-15 00:00: 00 11-17 00:00 :00 No [id number] 4mg Take 1 tablet by mouth every 8 (eight) hours as needed for Nausea and Vomiting (N/V). [facility] azelastine 137 mcg (0.1 %) nasal spray 10-31 00:00: 00 11-16 00:00 :00 No [id number] 1{spray } USE 1 SPRAY IN EACH NOSTRIL IN THE MORNING AND 1 SPRAY IN THE EVENING DIRECTED [facility] HYDROcodone -acetaminop hen (NORCO) 10-325 mg tablet 1 tablet 10-26 05:15: 00 10-26 04:19 :00 No 1{tbl} 1 tablet, Oral, ONCE NOW, 1 dose, On Wed10/27/23 at 0015, Routine [facility] acetaminoph en-codeine 300-30 mg tablet 10-26 00:00: 00 11-03 04:59 :00 No [id number] 1{tbl} Take 1 tablet by mouth every 4 (four) hours as needed for Pain (scale 7-10) for up to 7 days. Indication s: acute pain [facility] minoxidiL 2.5 mg tablet 10-19 00:00: 00 Yes [id number] 2.5mg Take 1 tablet by mouth in the morning. [facility] hydroxychlo roquine (PLAQUENIL) 200 mg tablet 408 00:00: 00 Yes [id number] 300mg Take 1.5 tablets by mouth in the morning. [facility] azelastine 137 mcg (0.1 %) nasal spray 09-15 00:00: 00 10-31 00:00 :00 No [id number] 1{spray } USE 1 SPRAY IN EACH NOSTRIL IN THE MORNING AND 1 SPRAY IN THE EVENING DIRECTED [facility] DULoxetine 30 mg capsule 09-14 00:00: 00 Yes [id number] 30mg Take 1 capsule by mouth in the morning and 1 capsule in the evening. First week, take only 1 capsule in morning, and then twice daily thereafter . [facility] minoxidiL 2.5 mg tablet 09-14 00:00: 00 10-19 00:00 :00 No [id number] 2.5mg Take 1 tablet by mouth in the morning. [facility] methocarbam oL 750 mg tablet 11 00:00: 00 02-23 00:00 :00 No 750mg Take 1 tablet by mouth 3 (three) times daily as needed for Other (muscle spasms). [facility] butalbital- acetaminoph en-caff 50-325-40 mg tablet 08-25 00:00: 00 02-23 00:00 :00 No [id number] 1{tbl} Take 1 tablet by mouth every 4 (four) hours as needed (severe migraine). Use sparingly no more than 9 days per month [facility] nortriptyli ne 50 mg capsule 08-16 00:00: 00 Yes [id number] 1-2 po QHS [facility] sumatriptan (IMITREX) 100 mg tablet 08-16 00:00: 00 Yes [id number] 100mg Take 1 tablet by mouth as needed for Migraine. May repeat in 2h if headache remains [facility] ondansetron 4 mg disintegrat ing tablet 08-16 00:00: 00 11-15 00:00 :00 No [id number] 4mg Take 1 tablet by mouth every 8 (eight) hours as needed for Nausea and Vomiting (N/V). [facility] butalbital- acetaminoph en-caff 50-325-40 mg tablet 08-16 00:00: 00 08-25 00:00 :00 No [id number] 1{tbl} Take 1 tablet by mouth every 4 (four) hours as needed (severe migraine). Use sparingly no more than 9 days per month [facility] azelastine 137 mcg (0.1 %) nasal spray 07-21 00:00: 00 09-15 00:00 :00 No [id number] 1{spray } USE 1 SPRAY IN EACH NOSTRIL IN THE MORNING AND 1 SPRAY IN THE EVENING DIRECTED [facility] gabapentin 300 mg capsule - 00:00: 00 Yes [id number] 300mg Take 1 capsule by mouth 3 (three) times daily as needed (pain). [facility] methocarbam oL 750 mg tablet -16 00:00: 00 08-29 00:00 :00 No 750mg Take 1 tablet by mouth 3 (three) times daily as needed for Other (muscle spasms). [facility] Nitrofurant oin&Nit. Macrocryst (MACROBID) 100 mg capsule -15 00:00: 00 07-16 05:59 :00 No [id number] 100mg Take 1 capsule by mouth in the morning and 1 capsule in the evening. Do all this for 10 days. [facility] metroNIDAZO LE 500 mg tablet -12 00:00: 00 07-03 05:59 :00 No [id number] 2000mg Take 4 tablets by mouth once now for 1 dose. [facility] HYDROcodone -acetaminop hen 5-325 mg tablet - 00:00: 00 07-01 05:59 :00 No [id number] 1{tbl} Take 1 tablet by mouth every 6 (six) hours as needed for Pain (scale 7-10) for up to 7 days. Indication s: acute pain [facility] ondansetron (ZOFRAN-ODT ) disintegrat ing tablet 4 mg 06-22 01:45: 00 06-22 00:58 :00 No 4mg 4 mg, Oral, ONCE, 1 dose, On Wed06/21/23 at 1945, Routine [facility] HYDROcodone -acetaminop hen (NORCO 5) 5-325 mg tablet 1 tablet 06-22 01:30: 00 06-22 00:53 :00 No 1{tbl} 1 tablet, Oral, ONCE, 1 dose, On Wed06/21/23 at 1930, Routine [facility] methocarbam oL (ROBAXIN) tablet 1,000 mg 06-22 01:00: 00 06-22 00:58 :00 No 1000mg 1,000 mg, Oral, ONCE, 1 dose, On Wed06/21/23 at 1900, DOUGLAS [facility] traMADoL 50 mg tablet 06-21 00:00: 00 06-29 05:59 :00 No [id number] 50mg Take 1 tablet by mouth every 6 (six) hours as needed for Pain (scale 1-3) for up to 7 days. Indication s: acute pain [facility] ondansetron (ZOFRAN-ODT ) disintegrat ing tablet 8 mg 2022-06 03:30: 00 06-17 02:39 :00 No [id number] 8mg [facility] methylPREDN ISolone sod succ (SOLU-MEDRO L (PF)) injection 40 mg 2022-06 03:30: 00 06-17 02:46 :00 No [id number] 40mg [facility] ketorolac (TORADOL) injection 60 mg 2022-06 03:15: 00 06-17 02:47 :00 No [id number] 60mg [facility] methylpredn isolone sod succ (SOLU-MEDRO L) injection 125 mg 2022-06 03:15: 00 06-17 02:32 :47 No [id number] 125mg [facility] albuterol (VENTOLIN) inhaler 2 Puff 2022-06 03:15: 00 06-17 02:40 :00 No [id number] 2{puff} [facility] albuterol 90 mcg/actuati on inhaler 2022-06 00:00: 00 Yes [id number] 2{puff} Inhale 2 Puffs every 6 (six) hours as needed for Wheezing or Shortness of Breath. [facility] benzonatate 100 mg capsule 2022-06 00:00: 00 07-31 00:00 :00 No [id number] 200mg Take 2 capsules by mouth every 8 (eight) hours as needed for Cough. [facility] amoxicillin -clavulanat e (AUGMENTIN) 875-125 mg per tablet 2022-06 00:00: 00 06-27 05:59 :00 No [id number] 1{tbl} Take 1 tablet by mouth in the morning and 1 tablet in the evening. Do all this for 10 days. [facility] predniSONE 20 mg tablet 2022-06 00:00: 00 06-22 05:59 :00 No [id number] 40mg Take 2 tablets by mouth in the morning for 5 days. [facility] bromphenira mine-pseudo ephedrine-D M (BROMFED DM) 2-30-10 mg/5 mL syrup 2022-06 00:00: 00 01-20 00:00 :00 No [id number] 5mL Take 5 mL by mouth 4 (four) times daily as needed for Cold symptoms. [facility] azelastine 137 mcg (0.1 %) nasal spray 2022-06 00:00: 00 07-21 00:00 :00 No [id number] 1{spray } Use 1 [place] in each nostril in the morning and 1 [place] in the evening. Use in each nostril as directed [facility] amoxicillin -clavulanat e (AUGMENTIN) 875-125 mg per tablet 2022-06- 00:00: 00 06-16 00:00 :00 No [id number] 1{tbl} Take 1 tablet by mouth in the morning and 1 tablet in the evening. [facility] topiramate 25 mg tablet 2022-06 00:00: 00 01-17 00:00 :00 No [id number] 25mg Take 1 tablet by mouth in the morning and 1 tablet in the evening. [facility] amitriptyli ne 25 mg tablet 2022-06 00:00: 00 08-16 00:00 :00 No [id number] 50mg Take 2 tablets by mouth at bedtime. [facility] SUMAtriptan (IMITREX) 50 mg tablet 2022-06 00:00: 00 08-16 00:00 :00 No [id number] 50mg Take 1 tablet by mouth as needed for Migraine. [facility] hydroxychlo roquine (PLAQUENIL) 200 mg tablet 2022-06 00:00: 00 09-15 00:00 :00 No [id number] 300mg Take 1.5 tablets by mouth in the morning. [facility] Methylpredn isolone (MEDROL) tablet 4 mg [...] Wed05/03/23 at 1700, Routine [Order 2 End] [facility] ferrous sulfate 325 mg (65 mg iron) tablet 2022-06 17:08: 54 01-20 00:00 :00 No 325mg Take 1 tablet by mouth in the morning. [facility] SUMAtriptan (IMITREX) tablet 100 mg 2022-06 16:45: 00 05-01 16:41 :00 No 100mg 100 mg, Oral, ONCE, 1 dose, On Wed05/01/23 at 1045, Routine [facility] amitriptyli ne (ELAVIL) tablet 25 mg 2022-06 03:00: 00 Yes 25mg 25 mg, Oral, QHS, First dose (after last modificati on) on Wed04/30/23 at 2100, Until Discontinu ed, Routine [facility] topiramate (TOPAMAX) tablet 25 mg 2022-06 03:00: 00 05-07 02:59 :00 No 25mg 25 mg, Oral, QHS, 6 doses, First dose (after last modificati on) on Wed04/30/23 at 2100, Last dose on Wed05/05/23 at 2100, Routine
body team member approving Restricted medication : LORENA KIRK [facility] proCHLORper azine 5 mg tablet 2022-06 00:00: 00 07-31 05:59 :00 No [id number] 10mg Take 2 tablets by mouth every 6 (six) hours as needed for Nausea and Vomiting (N/V) for up to 90 days. [facility] topiramate 25 mg tablet 2022-06 00:00: 00 05-06 00:00 :00 No [id number] 25mg Take 1 tablet by mouth in the morning and 1 tablet in the evening. Do all this for 90 days. [facility] enoxaparin (LOVENOX) injection 40 mg 2022-06 23:00: 00 Yes 40mg 40 mg, Subcutaneo us, DAILY AT 1700, First dose on Wed04/30/23 at 1700, Until Discontinu ed, Routine [facility] SUMAtriptan (IMITREX) tablet 100 mg 2022-06 20:30: 00 04-30 20:40 :00 No 100mg 100 mg, Oral, ONCE, 1 dose, On Wed04/30/23 at 1430, Routine [facility] topiramate (TOPAMAX) tablet 25 mg 2022-06 19:45: 00 04-30 20:47 :23 No 25mg 25 mg, Oral, DAILY, 7 doses, First dose on Wed04/30/23 at 1345, Last dose on Wed05/06/23 at 0900, Routine
body team member approving Restricted medication : LORENA KIRK [facility] ketorolac (TORADOL) injection 30 mg 2022-06 15:30: 00 04-30 16:07 :00 No 30mg 30 mg, Slow IV Push, ONCE NOW, 1 dose, On Wed04/30/23 at 0930, DOUGLAS [facility] diphenhydrA MINE (BENADRYL) injection 25 mg 2022-06 15:28: 20 Yes 25mg 25 mg, Intravenou s, Q8HPRN, Starting on Wed04/30/23 at 0928, Until Discontinu ed, Routine, Nausea and Vomiting (N/V), Headache [facility] proCHLORper azine (COMPAZINE) 10 mg in NaCl 0.9% (NS) piggyback 2022-06 15:20: 49 Yes 10mg 10 mg, IV Piggyback, at 100 mL/hr Administer over 30 Minutes, Q8HPRN, Starting on Wed04/30/23 at 0920, Until Discontinu ed, Routine, Nausea and Vomiting (N/V) [facility] acetaminoph en (TYLENOL) tablet 650 mg 2022-06 15:15: 23 Yes 650mg 650 mg, Oral, Q6HPRN, Starting on Wed04/30/23 at 0915, Until Discontinu ed, Routine, Pain (scale 1-3), Pain (scale 4-6) [facility] NaCl 0.9% (NS) IV infusion 1,000 mL 2022-06 14:15: 00 Yes 1000mL at 75 mL/hr, IV Infusion, CONTINUOUS , Starting on Wed04/30/23 at 0815, Until Discontinu ed, Routine [facility] acetaminoph en-codeine (TYLENOL #3) 300-30 mg tablet 1 tablet 2022-06 05:02: 17 Yes 1{tbl} 1 tablet, Oral, Q4HPRN, Starting on Wed04/29/23 at 2302, Until Discontinu ed, Routine, Pain (scale 4-6) [facility] gadobenate dimeglumine (MULTIHANCE -20 mL) injection 18.72 mL 2022-06 03:30: 00 04-30 03:30 :00 No [id number] .2mL/kg 18.72 mL (0.2 mL/kg ?93.6 kg), Intravenou s, ONCE, 1 dose, On Wed04/29/23 at 2130, Routine [facility] amitriptyli ne (ELAVIL) tablet 15 mg 2022-06 03:00: 00 04-30 17:22 :47 No 15mg 15 mg, Oral, QHS, First dose on Wed04/29/23 at 2100, Until Discontinu ed, Routine [facility] HYDROcodone -acetaminop hen (NORCO 5) 5-325 mg tablet 1 tablet 2022-06 01:00: 00 04-30 00:13 :00 No 1{tbl} 1 tablet, Oral, ONCE, 1 dose, On Wed04/29/23 at 1900, Routine [facility] amitriptyli ne 25 mg tablet 2022-06 00:00: 00 05-06 00:00 :00 No [id number] 25mg Take 1 tablet by mouth at bedtime. [facility] SUMAtriptan (IMITREX) 50 mg tablet 2022-06 00:00: 00 05-06 00:00 :00 No [id number] 50mg Take 1 tablet by mouth as needed for Migraine for up to 9 doses. [facility] topiramate 25 mg tablet 2022-06 00:00: 00 05-01 00:00 :00 No [id number] Take 1 tablet by mouth at bedtime for 6 days, THEN 1 tablet 2 (two) times daily for 84 days. [facility] magnesium oxide 420 mg Tab 2022-06 00:00: 00 04-29 00:00 :00 No [id number] 400mg Take 400 mg by mouth in the morning. [facility] LORazepam (ATIVAN) tablet 0.5 mg 2022-06 22:30: 00 04-30 02:13 :00 No .5mg 0.5 mg, Oral, ONCE, 1 dose, On Trista 04/29/23 at 1630, Routine [facility] ibuprofen (IBU) tablet 600 mg 2022-06 16:13: 00 04-29 22:19 :36 No 600mg 600 mg, Oral, Q6HPRN, Starting on Trista 04/29/23 at 1013, Until Trista 04/29/23 at 1619, Routine, Headache, 1-10 pain [facility] magnesium oxide 400 mg (241.3 mg magnesium) tablet 2022-06 00:00: 00 Yes [id number] 400mg Take 1 tablet by mouth in the morning. [facility] ibuprofen 600 mg tablet 2022-06 00:00: 00 01-20 00:00 :00 No [id number] 100 600mg Take 1 tablet by mouth every 6 (six) hours as needed for Pain (scale 1-3). [facility] amitriptyli ne 10 mg tablet 2022-06 00:00: 00 04-30 00:00 :00 No [id number] 15mg Take 1.5 tablets by mouth at bedtime. [facility] amitriptyli ne 10 mg tablet 2022-06 00:00: 00 04-29 00:00 :00 No [id number] 10mg Take 1 tablet by mouth at bedtime. [facility] benzocaine- menthoL (CEPACOL SORE THROAT (RHONDA-MEN)) lozenge 1 Lozenge 2022-06 18:38: 10 Yes 1{lozen ge} 1 Lozenge, Oral, Q4HPRN, Starting on Wed04/28/23 at 1238, Until Discontinu ed, Routine, Sore throat [facility] ondansetron (ZOFRAN (PF)) injection 4 mg 2022-06 16:25: 19 Yes 4mg 4 mg, Slow IV Push, Q6HPRN, Nausea and Vomiting (N/V), Starting on Wed04/28/23 at 1025
Do ses of ondansetro n 16 mg and above need to be administer ed via IV piggyback. For Dose >=24mg ECG monitoring is advisable.
[facility] ketorolac (TORADOL) injection 30 mg 2022-06 00:30: 00 04-28 15:23 :00 No 30mg 30 mg, Slow IV Push, Q8H ABX, 3 doses, First dose on Wed04/27/23 at 1830, Last dose on Wed04/28/23 at 1030, Routine [facility] magnesium sulfate in water 2 gram/50 mL (4 %) infusion 2 g 2022-06 00:15: 00 04-28 01:11 :00 No 2g 2 g, IV Piggyback, Administer over 60 Minutes, ONCE, 1 dose, On Wed04/27/23 at 1815, Routine [facility] ondansetron (ZOFRAN (PF)) injection 4 mg 2022-06 16:30: 00 04-27 15:46 :00 No 4mg 4 mg, Slow IV Push, ONCE, On Wed04/27/23 at 1030, For 1 dose
Do ses of ondansetro n 16 mg and above need to be administer ed via IV piggyback. For Dose >=24mg ECG monitoring is advisable.
[facility] amitriptyli ne (ELAVIL) tablet 10 mg 2022-06 03:00: 00 04-29 22:27 :33 No 10mg 10 mg, Oral, QHS, First dose on Wed04/26/23 at 2100, Until Discontinu ed, Routine [facility] magnesium sulfate in water 4 gram/50 mL (8 %) IV Piggyback 4 g 2022-06 23:30: 00 04-27 06:00 :00 No 4g 4 g, IV Piggyback, at 25 mL/hr Administer over 120 Minutes, ONCE, 1 dose, On Wed04/26/23 at 1730, Routine [facility] acetaminoph en (TYLENOL) tablet 500 mg 2022-06 23:15: 55 04-29 22:27 :33 No 500mg 500 mg, Oral, Q6HPRN, Starting on Wed04/26/23 at 1715, Until Trista 04/29/23 at 1627, Routine, Pain (scale 4-6) [facility] ibuprofen (IBU) tablet 600 mg 2022-06 23:15: 43 04-27 23:24 :39 No 600mg 600 mg, Oral, Q6HPRN, Starting on Wed04/26/23 at 1715, Until Wed04/27/23 at 1724, Routine, Pain (scale 1-3) [facility] valproate (DEPACON) 250 mg in D5W piggyback 2022-06 21:30: 00 04-27 19:59 :00 No 250mg 250 mg, IV Piggyback, TID, 3 doses, First dose on Wed04/26/23 at 1530, Last dose on Wed04/27/23 at 0800, Administer over 60 Minutes, 100 mL [facility] magnesium oxide (MAG-OX 400) tablet 400 mg 2022-06 20:45: 00 04-29 22:27 :33 No 400mg 400 mg, Oral, DAILY, First dose on Wed04/26/23 at 1445, Until Discontinu ed, Routine [facility] diphenhydrA MINE (BENADRYL) injection 25 mg 2022-06 20:00: 00 04-26 19:18 :00 No 25mg 25 mg, Intravenou s, ONCE, 1 dose, On Wed04/26/23 at 1400, Routine [facility] ibuprofen (IBU) tablet 800 mg 2022-06 19:15: 00 04-26 18:30 :00 No 800mg 800 mg, Oral, ONCE, 1 dose, On Wed04/26/23 at 1315, Routine [facility] HYDROcodone -acetaminop hen (NORCO 5) 5-325 mg tablet 1 tablet 2022-06 14:30: 00 04-26 16:00 :00 No 1{tbl} 1 tablet, Oral, ONCE, 1 dose, On Wed04/26/23 at 0830, Routine, PACU [facility] proMETHazin e (PHENERGAN) 12.5 mg in NS 50 mL IV piggyback (CNR) 2022-06 14:19: 50 04-26 20:10 :00 No 12.5mg 12.5 mg, IV Piggyback, at 200 mL/hr Administer over 15 Minutes, PRN, 1 dose, Starting on Wed04/26/23 at 0819, Until Wed04/26/23 at 1410, Routine, Nausea and Vomiting (N/V), PACU [facility] ferrous sulfate 325 mg (65 mg iron) tablet 2022-06 08:55: 33 Yes 325mg Take 1 tablet by mouth in the morning. [facility] hydroxychlo roquine 200 mg tablet 2022-06 00:00: 00 05-04 00:00 :00 No [id number] 200mg Take 1 tablet by mouth in the morning. [facility] ferrous sulfate 325 mg (65 mg iron) tablet 2022-06 16:56: 08 Yes 325mg Take 1 tablet by mouth in the morning. [facility] ondansetron 4 mg disintegrat ing tablet 2022-06 0-20 00:00: 00 08-16 00:00 :00 No [id number] 4mg Take 1 tablet by mouth every 8 (eight) hours as needed for Nausea and Vomiting (N/V). [facility] predniSONE 5 mg tablet 2022-06 0-20 00:00: 00 04-25 04:59 :00 No [id number] Take 3 tablets by mouth daily for 5 days, THEN 2 tablets daily for 5 days, THEN 1 tablet daily for 5 days. [facility] ferrous sulfate 325 mg (65 mg iron) tablet 2022-0618 14:04: 54 Yes 325mg Take 1 tablet by mouth in the morning. [facility] norethindro ne 0.35 mg tablet 2022-0616 00:00: 00 07-05 05:59 :00 No [id number] 100 .35mg Take 1 tablet by mouth in the morning for 90 days. [facility] medroxyPROG ESTERone (PROVERA) 5 mg tablet 2022-0616 00:00: 00 04-13 04:59 :00 No [id number] 100 5mg Take 1 tablet by mouth in the morning for 7 days. [facility] OZEMPIC 0.25 mg or 0.5 mg (2 mg/3 mL) PnIj 03-17 00:00: 00 01-20 00:00 :00 No INJECT 0.5 MG SUBCUTANEO USLY WEEKLY. [facility] metroNIDAZO LE 500 mg tablet 03-17 00:00: 00 04-07 00:00 :00 No TAKE ONE (1) TABLET(S) BY MOUTH EVERY TWELVE HOURS FOR 7 DAYS. [facility] ciprofloxac in HCl 500 mg tablet 03-17 00:00: 00 04-07 00:00 :00 No TAKE ONE (1) TABLET(S) BY MOUTH EVERY TWELVE HOURS FOR SEVEN DAYS. [facility] phentermine 37.5 mg tablet 03-12 00:00: 00 01-20 00:00 :00 No 37.5mg Take 1 tablet by mouth in the morning. [facility] norelgestro min-ethinyl estradiol (XULANE) 150-35 mcg/24 hr patch 8-14 00:00: 00 Yes [id number] 1{patch } Apply 1 Patch to skin weekly. [facility] ondansetron (ZOFRAN (PF)) injection 4 mg 01-26 02:45: 00 01-26 02:53 :00 No 4mg 4 mg, Slow IV Push, ONCE, 1 dose, On Wed01/25/23 at 2145, DOUGLAS [facility] morpHINE (4 mg/mL) injection 4 mg 01-26 02:45: 00 01-26 02:53 :00 No 4mg 4 mg, Slow IV Push, ONCE, 1 dose, On Wed01/25/23 at 2145, STAT [facility] gabapentin (NEURONTIN) capsule 300 mg 01-09 15:00: 00 Yes 300mg 300 mg, Oral, TID, First dose on 01/09/23 at 1000, Until Discontinu ed, Routine [facility] ibuprofen (IBU) tablet 600 mg 01-09 13:45: 00 Yes 600mg 600 mg, Oral, Q6H, First dose (after last modificati on) on 01/09/23 at 0845, Until Discontinu ed, Routine [facility] oxyCODONE immediate release tablet 5 mg 01-09 07:00: 00 01-09 06:30 :00 No 5mg 5 mg, Oral, ONCE, 1 dose, On 01/09/23 at 0200, Routine
body team member approving Restricted medication : ADC OBGYN [facility] proMETHazin e (PHENERGAN) 25 mg in NaCl 0.9% (NS) 50 mL IV piggyback 01-09 06:04: 38 Yes 25mg 25 mg, IV Piggyback, Q4HPRN, Starting on 01/09/23 at 0104, Until Discontinu ed, Routine, Nausea and Vomiting (N/V) [facility] lactated ringers IV infusion 1,000 mL 01-09 05:45: 00 Yes 1000mL at 100 mL/hr, 1,000 mL, IV Infusion, CONTINUOUS , Starting on 01/09/23 at 0045, Until Discontinu ed, Routine, PACU [facility] ondansetron (ZOFRAN (PF)) injection 4 mg 01-09 05:40: 11 Yes 4mg 4 mg, Slow IV Push, Q6HPRN, Starting on 01/09/23 at 0040, Until Discontinu ed, Routine, Nausea and Vomiting (N/V) [facility] FENTanyl PF (SUBLIMAZE (PF)) injection 25 mcg 01-09 04:09: 38 01-09 04:36 :00 No 25ug 25 mcg, Slow IV Push, Q5MIN PRN, 4 doses, Starting on Wed01/08/23 at 2309, Until Wed01/08/23 at 2336, Routine, Pain (scale 4-6), PACU [facility] HYDROmorphO ne (DILAUDID) injection 0.2 mg 01-09 04:09: 38 01-09 05:30 :19 No .2mg 0.2 mg, Slow IV Push, Q5MIN PRN, 10 doses, Starting on Wed01/08/23 at 2309, Until 01/09/23 at 0030, Routine, Pain (scale 7-10), PACU
Us e approved by (Faculty): PACU USE -ANESTHESI A SERVICE-HY DROMORPHON E INJECTIONS [facility] HYDROcodone -acetaminop hen (NORCO 5) 5-325 mg tablet 2 tablet 01-09 04:05: 17 Yes 2{tbl} 2 tablet, Oral, Q6HPRN, Starting on Wed01/08/23 at 2305, Until Discontinu ed, Routine, Pain (scale 7-10) [facility] bupivacaine (preserv free) (SENSORCAIN E MPF) 0.25 % (2.5 mg/mL) injection 01-09 02:15: 00 Yes PRN, Starting on Wed01/08/23 at 2115, Until Discontinu ed, Routine, Intra-op [facility] sodium chloride 0.9 % irrigation solution 01-09 00:50: 00 Yes PRN, Starting on Wed01/08/23 at 1950, Until Discontinu ed, Intra-op [facility] doxycycline hyclate (Vibramycin ) capsule 100 mg 01-09 00:03: 07 01-09 00:14 :00 No 100mg 100 mg, Oral, O.R. HOLDING ONCE, 1 dose, Starting on Wed01/08/23 at 1903, Until Wed01/08/23 at 1914, DOUGLAS, Surgery/Pr ocedure
Reason for Anti-Infec tive: Surgical Prophylaxi s
Surgi kavon Prophylaxi s: ELECTRONIC SCALE TESTER
Duration of therapy: within 24 hours of surgery [facility] ibuprofen 800 mg tablet 01-09 00:00: 00 04-27 00:00 :00 No [id number] 800mg Take 1 tablet by mouth every 8 (eight) hours as needed (Pain). [facility] HYDROcodone -acetaminop hen 5-325 mg tablet 01-09 00:00: 00 04-07 00:00 :00 No [id number] 1{tbl} Take 1 tablet by mouth every 6 (six) hours as needed (Pain). Indication s: acute pain [facility] NaCl 0.9% (NS) IV infusion 1,000 mL 01-08 20:15: 00 01-09 05:41 :08 No 1000mL at 150 mL/hr, Intravenou s, CONTINUOUS , Starting on Wed01/08/23 at 1515, Until Wed01/09/23 at 0041, DOUGLAS [facility] FENTanyl PF (SUBLIMAZE (PF)) injection 25 mcg 01-08 20:00: 00 01-08 19:18 :00 No 25ug 25 mcg, Slow IV Push, ONCE, 1 dose, On Wed01/08/23 at 1500, Routine [facility] diphenhydrA MINE (BENADRYL) injection 25 mg 01-08 16:53: 00 01-08 16:46 :00 No 25mg 25 mg, Slow IV Push, ONCE, 1 dose, On Wed01/08/23 at 1200, STAT [facility] NaCl 0.9% (NS) bolus infusion 1,000 mL 01-08 16:45: 00 01-08 19:12 :00 No 1000mL at 999 mL/hr, 1,000 mL, IV Infusion, ONCE, 1 dose, On Wed01/08/23 at 1145, [facility] morpHINE (4 mg/mL) injection 4 mg 01-08 16:00: 00 01-08 16:43 :00 No 4mg 4 mg, Slow IV Push, ONCE, 1 dose, On Wed01/08/23 at 1100, [facility] ondansetron (ZOFRAN (PF)) injection 4 mg 01-08 16:00: 00 01-08 16:43 :00 No 4mg 4 mg, Slow IV Push, ONCE, 1 dose, On Wed01/08/23 at 1100, [facility] NaCl 0.9% (NS) bolus infusion 1,000 mL 01-02 04:45: 00 01-02 05:51 :00 No 1000mL at 999 mL/hr, 1,000 mL, IV Piggyback, ONCE, 1 dose, On Wed01/01/23 at 2345, STAT [facility] ondansetron 4 mg disintegrat ing tablet 01-02 00:00: 00 04-09 00:00 :00 No [id number] 4mg Take 1 tablet by mouth every 12 (twelve) hours as needed for Nausea and Vomiting (N/V). [facility] acetaminoph en-codeine 300-30 mg tablet 01-02 00:00: 00 01-08 00:00 :00 No [id number] 1{tbl} Take 1 tablet by mouth every 6 (six) hours as needed for Pain (scale 7-10) for up to 7 days. Indication s: acute pain [facility] doxylamine- pyridoxine, vit B6, (DICLEGIS) 10-10 mg per tablet 12-21 00:00: 04-09 00:00 :00 No [id number] Day 1: Take 2 tablet before bed. Day 2: If still having nausea and vomiting 2 tablet bed. Day 3 take 1 tablet in am and 2 tablet at bed [facility] HYDROcodone -acetaminop hen 7.5-325 mg per tablet 12-17 00:00: 00 01-08 00:00 :00 No TAKE 1 TABLET BY MOUTH EVERY 4 HOURS FOR PAIN [facility] ketorolac 10 mg tablet 12-17 00:00: 00 01-08 00:00 :00 No 10mg Take 1 tablet by mouth every 8 (eight) hours as needed. [facility] Nitrofurant oin&Nit. Macrocryst (MACROBID) 100 mg capsule 12-14 00:00: 00 12-25 04:59 :00 No [id number] 100mg Take 1 capsule by mouth in the morning and 1 capsule in the evening. Do all this for 10 days. [facility] Nitrofurant oin&Nit. Macrocryst (MACROBID) 100 mg capsule 12-12 00:00: 00 12-23 04:59 :00 No [id number] 100mg Take 1 capsule by mouth in the morning and 1 capsule in the evening. Do all this for 10 days. [facility] cetirizine HCl (ZYRTEC ORAL) 12-11 11:04: 03 12-11 00:00 :00 No Take by mouth. [facility] vitamin w/FA tablet 12-11 00:00: 00 Yes [id number] 1{tbl} Take 1 tablet by mouth in the morning. [facility] vitamin w/FA tablet 12-11 00:00: 00 Yes [id number] 1{tbl} Take 1 tablet by mouth in the morning. [facility] proMETHazin e 25 mg tablet 12-11 00:00: 00 01-08 00:00 :00 No [id number] 25mg Take 1 tablet by mouth every 6 (six) hours as needed for Nausea and Vomiting (N/V). [facility] TRINATAL RX 1 60 mg iron-1 mg tablet 12-11 00:00: 00 01-08 00:00 :00 No 1{tbl} Take 1 tablet by mouth every morning. [facility] norelgestro min-ethinyl estradiol 150-35 mcg/24 hr patch 11-12 00:00: 00 12-10 00:00 :00 No [id number] 1{patch } Apply 1 Patch to skin weekly. [facility] SERTraline (ZOLOFT) 100 mg tablet 10-22 00:00: 00 12-11 00:00 :00 No [id number] 100mg Take 1 tablet by mouth in the morning. [facility] ondansetron (ZOFRAN-ODT ) disintegrat ing tablet 4 mg 09-28 13:40: 00 09-28 13:44 :00 No 4mg 4 mg, Oral, ONCE, 1 dose, On Wed09/28/22 at 0845, Routine [facility] cetirizine HCl (ZYRTEC ORAL) 09-28 13:30: 35 Yes Take by mouth. [facility] lactated ringers IV infusion 1,000 mL 09-28 02:45: 00 Yes 1000mL at 42 mL/hr, 1,000 mL, IV Infusion, CONTINUOUS , Starting on Wed09/27/22 at 2145, Until Discontinu ed, Routine [facility] HYDROmorphO ne (DILAUDID) injection 0.5 mg 09-28 01:50: 58 09-28 03:05 :22 No .5mg 0.5 mg, Slow IV Push, Q5MIN PRN, 4 doses, Starting on Wed09/27/22 at 2050, Until Wed09/27/22 at 2204, DOUGLAS, Pain (scale 7-10), PACU
Us e approved by (Faculty): ADC PROVIDER [facility] HYDROcodone -acetaminop hen (NORCO 5) 5-325 mg tablet 2 tablet 09-28 01:40: 53 Yes 2{tbl} 2 tablet, Oral, Q6HPRN, Starting on Wed09/27/22 at 2039, Until Discontinu ed, Routine, Pain (scale 7-10) [facility] HYDROcodone -acetaminop hen (NORCO 5) 5-325 mg tablet 1 tablet 09-28 01:40: 46 Yes 1{tbl} 1 tablet, Oral, Q6HPRN, Starting on Wed09/27/22 at 2039, Until Discontinu ed, Routine, Pain (scale 4-6) [facility] water for irrigation irrigation solution 09-28 01:20: 00 Yes PRN, Starting on Wed09/27/22 at 2019, Until Discontinu ed, Routine, Intra-op [facility] HYDROcodone -acetaminop hen 5-325 mg tablet 09-28 00:00: 00 11-12 00:00 :00 No [id number] 1{tbl} Take 1 tablet by mouth every 6 (six) hours as needed for Pain (scale 4-6). Indication s: acute pain [facility] miSOPROStoL (CYTOTEC) tablet 800 mcg 09-27 14:15: 00 09-27 13:36 :00 No 800ug 800 mcg, Oral, ONCE, 1 dose, On Wed09/27/22 at 0915, Routine [facility] D5W 0.9% NaCl (NS) IV infusion 1,000 mL 09-27 05:30: 00 Yes 1000mL at 125 mL/hr, 1,000 mL, IV Infusion, CONTINUOUS , Starting on Wed09/27/22 at 0030, Until Discontinu ed, [facility] -[facility]aminop [facility] (NORCO) 10-325 mg tablet 1 tablet 09-27 04:45: 00 09-27 03:42 :00 No 1{tbl} 1 tablet, Oral, ONCE NOW, 1 dose, On 09/26/22 at 2345, Routine [facility] diphenhydrA MINE (BENADRYL) injection 25 mg 09-27 04:40: 31 Yes 25mg 25 mg, Intravenou s, Q6HPRN, Starting on 09/26/22 at 2340, Until Discontinu ed, Routine, Itching [facility] ketorolac (TORADOL) injection 30 mg 09-27 04:33: 40 09-29 04:32 :40 No 30mg 30 mg, Slow IV Push, Q6HPRN, Starting on 09/26/22 at 2333, Until 09/28/22 at 2332, Routine, Pain (scale 1-3), Pain (scale 4-6) [facility] FENTanyl PF (SUBLIMAZE (PF)) injection 50 mcg 09-27 04:33: 26 Yes 50ug 50 mcg, Slow IV Push, Q2HPRN, Starting on 09/26/22 at 2333, Until Discontinu ed, Routine, Pain (scale 7-10) [facility] metoclopram julia HCl (REGLAN) injection 10 mg 09-27 03:45: 00 09-27 03:43 :00 No 10mg 10 mg, Slow IV Push, ONCE, 1 dose, On 09/26/22 at 2245, DOUGLAS [facility] NaCl 0.9% (NS) IV infusion 1,000 mL 09-27 03:30: 00 09-27 03:42 :00 No 1000mL at 999 mL/hr, Intravenou s, ONCE, 1 dose, On 09/26/22 at 2230, Routine [facility] ondansetron (ZOFRAN (PF)) injection 4 mg 09-27 02:45: 00 09-27 02:42 :00 No 4mg 4 mg, Slow IV Push, ONCE, 1 dose, On 09/26/22 at 2145, DOUGLAS [facility] FENTanyl PF (SUBLIMAZE (PF)) injection 25 mcg 09-27 02:45: 00 09-27 02:42 :00 No 25ug 25 mcg, Slow IV Push, ONCE, 1 dose, On 09/26/22 at 2145, STAT [facility] ketorolac (TORADOL) injection 30 mg 09-27 01:15: 00 09-27 00:42 :00 No 30mg 30 mg, Slow IV Push, ONCE, 1 dose, On 09/26/22 at 2014, Routine [facility] NaCl 0.9% (NS) IV infusion 1,000 mL 09-27 01:15: 00 09-27 02:37 :41 No 1000mL at 999 mL/hr, Intravenou s, CONTINUOUS , Starting on 09/26/22 at 2014, [facility]/26/22 [facility] 2137[facility] ([facility] 4 mg 09-27 00:30: 00 09-27 00:34 :00 No 4mg 4 mg, Slow IV Push, ONCE, 1 dose, On 09/26/22 at 1930[facility] (4 mg/mL) injection 4 mg 09-27 00:15: 00 09-27 00:35 :00 No 4mg 4 mg, Slow IV Push, ONCE, 1 dose, On 09/26/22 at 1915, STAT [facility] SERTraline (ZOLOFT) 50 mg tablet 09-23 00:00: 00 10-22 00:00 :00 No [id number] 100 50mg Take 1 tablet by mouth in the morning. [facility] proMETHazin e 25 mg tablet 08-11 00:00: 00 11-12 00:00 :00 No [id number] 25mg Take 1 tablet by mouth every 4 (four) hours as needed for Nausea and Vomiting (N/V). [facility] Iron Fum & P-FA-Vit B & C No.9 (INTEGRA PLUS) 125 mg iron- 1 mg Cap 08-11 00:00: 00 11-12 00:00 :00 No [id number] 1{capsu le} Take 1 capsule by mouth daily. [facility] Iron Fum & P-FA-Vit B & C No.9 (INTEGRA PLUS) 125 mg iron- 1 mg Cap 2- 00:00: 00 11-12 00:00 :00 No [id number] 1{capsu le} Take 1 capsule by mouth daily. [facility] HYDROcodone -acetaminop hen (NORCO) 10-325 mg tablet 1 tablet 2021-06 09:30: 00 04-27 08:47 :00 No 1{tbl} 1 tablet, Oral, ONCE, 1 dose, On Wed04/27/22 at 0330, Routine [facility] ketorolac (TORADOL) injection 30 mg 2021-06 09:00: 00 04-27 08:25 :00 No 30mg 30 mg, Slow IV Push, ONCE, 1 dose, On Wed04/27/22 at 0300, Routine [facility] tranexamic acid 650 mg tablet 2021-06 00:00: 00 05-03 05:59 :00 No [id number] 100 1300mg Take 2 tablets by mouth in the morning and 2 tablets at noon and 2 tablets in the evening. Do all this for 5 days. [facility] omeprazole 10 mg capsule 12-30 19:26: 59 12-30 00:00 :00 No 10mg Take 10 mg by mouth daily. [facility] norelgestro min-ethinyl estradiol (XULANE) 150-35 mcg/24 hr patch 12-30 00:00: 00 04-27 00:00 :00 No [id number] 1{patch } Apply 1 Patch to skin weekly. For 3 weeks, followed by 1 week no ptach [facility] ibuprofen 600 mg tablet 03-17 00:00: 00 12-30 00:00 :00 No [id number] 600mg Take 1 tablet by mouth every 6 (six) hours as needed for Pain (scale 4-6). [facility] cetirizine HCl (ZYRTEC ORAL) 06-27 15:45: 25 Yes Take by mouth. [facility] ibuprofen 600 mg tablet 2019-06 00:00: 06-27 00:00 :00 No [id number] 600mg Take 1 tablet by mouth every 6 (six) hours as needed for Pain (scale 4-6). [facility] ondansetron (ZOFRAN ODT) 4 mg disintegrat ing tablet 2019-06 00:00: 06-27 00:00 :00 No [id number] 4mg Take 1 tablet by mouth every 8 (eight) hours as needed for Nausea and Vomiting (N/V). [facility] traMADol 50 mg tablet 12-04 00:00: 00 06-27 00:00 :00 No [id number] 50mg Take 1 tablet by mouth every 6 (six) hours as needed (pain). [facility] proMETHazin e 25 mg tablet 12-04 00:00: 06-27 00:00 :00 No [id number] 25mg Take 1 tablet by mouth every 6 (six) hours as needed for Nausea and Vomiting (N/V). [facility] ibuprofen 600 mg tablet 11-14 00:00: 00 06-27 00:00 :00 No [id number] 600mg Take 1 tablet by mouth every 6 (six) hours as needed for Pain (scale 4-6). [facility] acetaminoph en-codeine 300-30 mg tablet 11-14 00:00: 00 06-27 00:00 :00 No [id number] 1{tbl} Take 1 tablet by mouth every 4 (four) hours as needed for Pain (scale 4-6). [facility] ondansetron 4 mg disintegrat ing tablet 08-30 00:00: 00 06-27 00:00 :00 No [id number] 4mg Take 1 tablet by mouth every 4 (four) hours as needed for Nausea and Vomiting (N/V). [facility] acetaminoph en-codeine 300-30 mg tablet 2020-0 3-12 00:00: 00 06-27 00:00 :00 No [id number] 1{tbl} Take 1-2 tablets by mouth every 6 (six) hours as needed (cough). [facility] ibuprofen 800 mg tablet 08-30 00:00: 00 06-27 00:00 :00 No [id number] 800mg Take 1 tablet by mouth every 8 (eight) hours as needed for Pain (scale 4-6). [facility] sod chlor-bicar b-squeez bottle (NEILMED SINUS RINSE COMPLETE) pkdv 2018-06 00:00: 00 06-27 00:00 :00 No [id number] 1{bottl e} Use 1 Bottle in each nostril 2 (two) times daily. Use in hot shower 1 hour before bedtime [facility] promethazin e-codeine 6.25-10 mg/5 mL syrup 2018-06 00:00: 00 06-27 00:00 :00 No [id number] 5mL Take 5 mL by mouth 4 (four) times daily as needed for Cough. [facility] traMADol (ULTRAM) 50 mg tablet 2018-06 00:00: 00 06-27 00:00 :00 No [id number] 50mg Take 1 tablet by mouth every 8 (eight) hours as needed for Pain (scale 4-6). [facility] Immunizations Ordered Immunization Name Filled Immunization Name Date Status Comments Source Influenza Virus Vaccine Quad IM 3+ YRS 2024-03-03 00:00:00 Completed [facility] TDAP 2024-03-03 00:00:00 Completed [facility] HPV9 2024-03-03 00:00:00 Completed [facility] Influenza Virus Vaccine Quad IM 3+ YRS 2023-12-02 00:00:00 Completed [facility] TDAP 2023-12-02 00:00:00 Completed [facility] HPV9 2023-12-02 00:00:00 Completed [facility] Influenza Virus Vaccine Quad IM 3+ YRS 2023-11-24 00:00:00 Completed [facility] TDAP 2023-11-24 00:00:00 Completed [facility] HPV9 2023-11-24 00:00:00 Completed [facility] Influenza Virus Vaccine Quad IM 3+ YRS 2023-11-19 00:00:00 Completed [facility] TDAP 2023-11-19 00:00:00 Completed [facility] HPV9 2023-11-19 00:00:00 Completed [facility] Influenza Virus Vaccine Quad IM 3+ YRS 2023-11-17 00:00:00 Completed [facility] [facility] [place] [facility] 2023-11-17 00:00:00 Completed [facility] HPV9 2023-11-17 00:00:00 Completed [facility] Influenza Virus Vaccine Quad IM 3+ YRS 2023-11-16 12:00:00 Completed [facility] TDAP 2023-11-16 12:00:00 Completed [facility] HPV9 2023-11-16 12:00:00 Completed [facility] Influenza Virus Vaccine Quad IM 3+ YRS 2023-11-16 09:30:00 Completed [facility] HPV9 2023-11-16 09:30:00 Completed [facility] TDAP 2023-11-16 09:30:00 Completed [facility] Influenza Virus Vaccine Quad IM 3+ YRS 2023-11-16 00:00:00 Completed [facility] HPV9 2023-11-16 00:00:00 Completed [facility] TDAP 2023-11-16 00:00:00 Completed [facility] Influenza Virus Vaccine Quad IM 3+ YRS 2023-10-26 22:57:00 Completed [facility] TDAP 2023-10-26 22:57:00 Completed [facility] HPV9 2023-10-26 22:57:00 Completed [facility] Influenza Virus Vaccine Quad IM 3+ YRS 2023-10-26 00:00:00 Completed [facility] TDAP 2023-10-26 00:00:00 Completed [facility] HPV9 2023-10-26 00:00:00 Completed [facility] Influenza Virus Vaccine Quad IM 3+ YRS 2023-10-25 00:00:00 Completed [facility] HPV9 2023-10-25 00:00:00 Completed [facility] TDAP 2023-10-25 00:00:00 Completed [facility] Influenza Virus Vaccine Quad IM 3+ YRS 2023-10-20 15:00:00 Completed [facility] TDAP 2023-10-20 15:00:00 Completed [facility] HPV9 2023-10-20 15:00:00 Completed [facility] Influenza Virus Vaccine Quad IM 3+ YRS 2023-09-22 00:00:00 Completed [facility] TDAP 2023-09-22 00:00:00 Completed [facility] HPV9 2023-09-22 00:00:00 Completed [facility] Influenza Virus Vaccine Quad IM 3+ YRS 2023-09-16 00:00:00 Completed [facility] TDAP 2023-09-16 00:00:00 Completed [facility] HPV9 2023-09-16 00:00:00 Completed [facility] Influenza Virus Vaccine Quad IM 3+ YRS 2023-09-16 00:00:00 Completed [facility] TD[facility] 2023-09-16 00:00:00 Completed [facility] HPV9 2023-09-16 00:00:00 Completed [facility] Influenza Virus Vaccine Quad IM 3+ YRS 2023-09-15 15:10:00 Completed [facility] HPV9 2023-09-15 15:10:00 Completed [facility] TD[facility] 2023-09-15 15:10:00 Completed [facility] Influenza Virus Vaccine Quad IM 3+ YRS 2023-09-09 10:15:00 Completed [facility] HPV9 2023-09-09 10:15:00 Completed [facility] TD[facility] 2023-09-09 10:15:00 Completed [facility] Influenza Virus Vaccine Quad IM 3+ YRS 2023-09-09 00:00:00 Completed [facility] TD[facility] 2023-09-09 00:00:00 Completed [facility] HPV9 2023-09-09 00:00:00 Completed [facility] Influenza Virus Vaccine Quad IM 3+ YRS 2023-09-07 00:00:00 Completed [facility] HPV9 2023-09-07 00:00:00 Completed [facility] TD[facility] 2023-09-07 00:00:00 Completed [facility] Influenza Virus Vaccine Quad IM 3+ YRS 2023-09-04 00:00:00 Completed [facility] TD[facility] 2023-09-04 00:00:00 Completed [facility] HPV9 2023-09-04 00:00:00 Completed [facility] Influenza Virus Vaccine Quad IM 3+ YRS 2023-09-01 00:00:00 Completed [facility] TD[facility] 2023-09-01 00:00:00 Completed [facility] HPV9 2023-09-01 00:00:00 Completed [facility] Influenza Virus Vaccine Quad IM 3+ YRS 2023-08-30 00:00:00 Completed [facility] TD[facility] 2023-08-30 00:00:00 Completed [facility] HPV9 2023-08-30 00:00:00 Completed [facility] Influenza Virus Vaccine Quad IM 3+ YRS 2023-08-26 00:00:00 Completed [facility] TD[facility] 2023-08-26 00:00:00 Completed [facility] HPV9 2023-08-26 00:00:00 Completed [facility] Influenza Virus Vaccine Quad IM 3+ YRS 2023-08-26 00:00:00 Completed [facility] TD[facility] 2023-08-26 00:00:00 Completed [facility] HPV9 2023-08-26 00:00:00 Completed [facility] Influenza Virus Vaccine Quad IM 3+ YRS 2023-08-26 00:00:00 Completed [facility] TD[facility] 2023-08-26 00:00:00 Completed [facility] HPV9 2023-08-26 00:00:00 Completed [facility] Influenza Virus Vaccine Quad IM 3+ YRS 2023-08-25 13:58:00 Completed [facility] TD[facility] 2023-08-25 13:58:00 Completed [facility] HPV9 2023-08-25 13:58:00 Completed [facility] Influenza Virus Vaccine Quad IM 3+ YRS 2023-08-25 13:40:00 Completed [facility] TD[facility] 2023-08-25 13:40:00 Completed [facility] HPV9 2023-08-25 13:40:00 Completed [facility] Influenza Virus Vaccine Quad IM 3+ YRS 2023-08-20 13:00:00 Completed [facility] TD[facility] 2023-08-20 13:00:00 Completed [facility] HPV9 2023-08-20 13:00:00 Completed [facility] Influenza Virus Vaccine Quad IM 3+ YRS 2023-08-17 00:00:00 Completed [facility] TD[facility] 2023-08-17 00:00:00 Completed [facility] HPV9 2023-08-17 00:00:00 Completed [facility] Influenza Virus Vaccine Quad IM 3+ YRS 2023-08-16 09:00:00 Completed [facility] TD[facility] 2023-08-16 09:00:00 Completed [facility] HPV9 2023-08-16 09:00:00 Completed [facility] Influenza Virus Vaccine Quad IM 3+ YRS 2023-08-13 14:35:00 Completed [facility] TD[facility] 2023-08-13 14:35:00 Completed [facility] HPV9 2023-08-13 14:35:00 Completed [facility] Influenza Virus Vaccine Quad IM 3+ YRS 2023-08-13 00:00:00 Completed [facility] TD[facility] 2023-08-13 00:00:00 Completed [facility] HPV9 2023-08-13 00:00:00 Completed [facility] Influenza Virus Vaccine Quad IM 3+ YRS 2023-08-09 00:00:00 Completed [facility] TD[facility] 2023-08-09 00:00:00 Completed [facility] HPV9 2023-08-09 00:00:00 Completed [facility] Influenza Virus Vaccine Quad IM 3+ YRS 2023-08-02 00:00:00 Completed [facility] HPV9 2023-08-02 00:00:00 Completed [facility] TDAP 2023-08-02 00:00:00 Completed [facility] Influenza Virus Vaccine Quad IM 3+ YRS 2023-07-30 00:00:00 Completed [facility] TD[facility] 2023-07-30 00:00:00 Completed [facility] HPV9 2023-07-30 00:00:00 Completed [facility] Influenza Virus Vaccine Quad IM 3+ YRS 2023-07-29 15:00:00 Completed [facility] HPV9 2023-07-29 15:00:00 Completed [facility] TD[facility] 2023-07-29 15:00:00 Completed [facility] Influenza Virus Vaccine Quad IM 3+ YRS 2023-07-29 14:05:00 Completed [facility] TD[facility] 2023-07-29 14:05:00 Completed [facility] HPV9 2023-07-29 14:05:00 Completed [facility] Influenza Virus Vaccine Quad IM 3+ YRS 2023-07-29 13:40:00 Completed [facility] TD[facility] 2023-07-29 13:40:00 Completed [facility] HPV9 2023-07-29 13:40:00 Completed [facility] Influenza Virus Vaccine Quad IM 3+ YRS 2023-07-26 00:00:00 Completed [facility] HPV9 2023-07-26 00:00:00 Completed [facility] TD[facility] 2023-07-26 00:00:00 Completed [facility] Influenza Virus Vaccine Quad IM 3+ YRS 2023-07-23 00:00:00 Completed [facility] TD[facility] 2023-07-23 00:00:00 Completed [facility] HPV9 2023-07-23 00:00:00 Completed [facility] Influenza Virus Vaccine Quad IM 3+ YRS 2023-07-21 00:00:00 Completed [facility] TD[facility] 2023-07-21 00:00:00 Completed [facility] HPV9 2023-07-21 00:00:00 Completed [facility] Influenza Virus Vaccine Quad IM 3+ YRS 2023-07-14 15:30:00 Completed [facility] HPV9 2023-07-14 15:30:00 Completed [facility] TD[facility] 2023-07-14 15:30:00 Completed [facility] Influenza Virus Vaccine Quad IM 3+ YRS 2023-07-13 00:00:00 Completed [facility] TD[facility] 2023-07-13 00:00:00 Completed [facility] HPV9 2023-07-13 00:00:00 Completed [facility] Influenza Virus Vaccine Quad IM 3+ YRS 2023-07-07 14:20:00 Completed [facility] TD[facility] 2023-07-07 14:20:00 Completed [facility] HPV9 2023-07-07 14:20:00 Completed [facility] Influenza Virus Vaccine Quad IM 3+ YRS 2023-07-05 00:00:00 Completed [facility] TD[facility] 2023-07-05 00:00:00 Completed [facility] HPV9 2023-07-05 00:00:00 Completed [facility] Influenza Virus Vaccine Quad IM 3+ YRS 2023-07-05 00:00:00 Completed [facility] TDAP 2023-07-05 00:00:00 Completed [facility] HPV9 2023-07-05 00:00:00 Completed [facility] Influenza Virus Vaccine Quad IM 3+ YRS 2023-07-05 00:00:00 Completed [facility] TDAP 2023-07-05 00:00:00 Completed [facility] HPV9 2023-07-05 00:00:00 Completed [facility] Influenza Virus Vaccine Quad IM 3+ YRS 2023-07-02 00:00:00 Completed [facility] TDAP 2023-07-02 00:00:00 Completed [facility] HPV9 2023-07-02 00:00:00 Completed [facility] Influenza Virus Vaccine Quad IM 3+ YRS 2023-07-01 14:45:00 Completed [facility] HPV9 2023-07-01 14:45:00 Completed [facility] TD[facility] 2023-07-01 14:45:00 Completed [facility] Influenza Virus Vaccine Quad IM 3+ YRS 2023-07-01 00:00:00 Completed [facility] TD[facility] 2023-07-01 00:00:00 Completed [facility] HPV9 2023-07-01 00:00:00 Completed [facility] Influenza Virus Vaccine Quad IM 3+ YRS 2023-06-23 12:50:00 Completed [facility] TD[facility] 2023-06-23 12:50:00 Completed [facility] HPV9 2023-06-23 12:50:00 Completed [facility] Influenza Virus Vaccine Quad IM 3+ YRS 2023-06-23 00:00:00 Completed [facility] TD[facility] 2023-06-23 00:00:00 Completed [facility] HPV9 2023-06-23 00:00:00 Completed [facility] Influenza Virus Vaccine Quad IM 3+ YRS 2023-06-23 00:00:00 Completed [facility] TDAP 2023-06-23 00:00:00 Completed [facility] HPV9 2023-06-23 00:00:00 Completed [facility] Influenza Virus Vaccine Quad IM 3+ YRS 2023-06-22 08:00:00 Completed [facility] TDAP 2023-06-22 08:00:00 Completed [facility] HPV9 2023-06-22 08:00:00 Completed [facility] Influenza Virus Vaccine Quad IM 3+ YRS 2023-06-22 00:00:00 Completed [facility] TD[facility] 2023-06-22 00:00:00 Completed [facility] HPV9 2023-06-22 00:00:00 Completed [facility] Influenza Virus Vaccine Quad IM 3+ YRS 2023-06-21 18:13:00 Completed [facility] TD[facility] 2023-06-21 18:13:00 Completed [facility] HPV9 2023-06-21 18:13:00 Completed [facility] Influenza Virus Vaccine Quad IM 3+ YRS 2023-06-21 00:00:00 Completed [facility] TDAP 2023-06-21 00:00:00 Completed [facility] HPV9 2023-06-21 00:00:00 Completed [facility] Influenza Virus Vaccine Quad IM 3+ YRS 2023-06-20 00:00:00 Completed [facility] TD[facility] 2023-06-20 00:00:00 Completed [facility] HPV9 2023-06-20 00:00:00 Completed [facility] Influenza Virus Vaccine Quad IM 3+ YRS 2023-06-17 00:00:00 Completed [facility] TD[facility] 2023-06-17 00:00:00 Completed [facility] HPV9 2023-06-17 00:00:00 Completed [facility] Influenza Virus Vaccine Quad IM 3+ YRS 2023-06-16 20:00:00 Completed [facility] TD[facility] 2023-06-16 20:00:00 Completed [facility] HPV9 2023-06-16 20:00:00 Completed [facility] Influenza Virus Vaccine Quad IM 3+ YRS 2023-06-03 10:00:00 Completed [facility] TD[facility] 2023-06-03 10:00:00 Completed [facility] HPV9 2023-06-03 10:00:00 Completed [facility] Influenza Virus Vaccine Quad IM 3+ YRS 2023-06-03 00:00:00 Completed [facility] TDAP 2023-06-03 00:00:00 Completed [facility] HPV9 2023-06-03 00:00:00 Completed [facility] Influenza Virus Vaccine Quad IM 3+ YRS 2023-05-26 14:00:00 Completed [facility] HPV9 2023-05-26 14:00:00 Completed [facility] TDAP 2023-05-26 14:00:00 Completed [facility] Influenza Virus Vaccine Quad IM 3+ YRS 2023-05-26 00:00:00 Completed [facility] TDAP 2023-05-26 00:00:00 Completed [facility] HPV9 2023-05-26 00:00:00 Completed [facility] Influenza Virus Vaccine Quad IM 3+ YRS 2023-05-18 13:00:00 Completed [facility] TDAP 2023-05-18 13:00:00 Completed [facility] HPV9 2023-05-18 13:00:00 Completed [facility] Influenza Virus Vaccine Quad IM 3+ YRS 2023-05-10 14:30:00 Completed [facility] HPV9 2023-05-10 14:30:00 Completed [facility] TD[facility] 2023-05-10 14:30:00 Completed [facility] Influenza Virus Vaccine Quad IM 3+ YRS 2023-05-06 11:30:00 Completed [facility] TDAP 2023-05-06 11:30:00 Completed [facility] HPV9 2023-05-06 11:30:00 Completed [facility] Influenza Virus Vaccine Quad IM 3+ YRS 2023-05-06 00:00:00 Completed [facility] TD[facility] 2023-05-06 00:00:00 Completed [facility] HPV9 2023-05-06 00:00:00 Completed [facility] Influenza Virus Vaccine Quad IM 3+ YRS 2023-05-04 00:00:00 Completed [facility] TD[facility] 2023-05-04 00:00:00 Completed [facility] HPV9 2023-05-04 00:00:00 Completed [facility] Influenza Virus Vaccine Quad IM 3+ YRS 2023-05-03 00:00:00 Completed [facility] TD[facility] 2023-05-03 00:00:00 Completed [facility] HPV9 2023-05-03 00:00:00 Completed [facility] Influenza Virus Vaccine Quad IM 3+ YRS 2023-04-26 05:34:00 Completed [facility] TD[facility] 2023-04-26 05:34:00 Completed [facility] HPV9 2023-04-26 05:34:00 Completed [facility] Influenza Virus Vaccine Quad IM 3+ YRS 2023-04-23 16:00:00 Completed [facility] HPV9 2023-04-23 16:00:00 Completed [facility] TD[facility] 2023-04-23 16:00:00 Completed [facility] HPV9 2023-04-14 00:00:00 Completed [facility] TD[facility] 2023-04-14 00:00:00 Completed [facility] Influenza Virus Vaccine Quad IM 3+ YRS 2023-04-14 00:00:00 Completed [facility] Influenza Virus Vaccine Quad IM 3+ YRS 2023-04-14 00:00:00 Completed [facility] TD[facility] 2023-04-14 00:00:00 Completed [facility] HPV9 2023-04-14 00:00:00 Completed [facility] Influenza Virus Vaccine Quad IM 3+ YRS 2023-04-12 00:00:00 Completed [facility] TD[facility] 2023-04-12 00:00:00 Completed [facility] HPV9 2023-04-12 00:00:00 Completed [facility] Influenza Virus Vaccine Quad IM 3+ YRS 2023-04-09 10:30:00 Completed [facility] HPV9 2023-04-09 10:30:00 Completed [facility] TD[facility] 2023-04-09 10:30:00 Completed [facility] HPV9 2023-04-09 08:30:00 Completed [facility] TD[facility] 2023-04-09 08:30:00 Completed [facility] Influenza Virus Vaccine Quad IM 3+ YRS 2023-04-09 08:30:00 Completed [facility] Influenza Virus Vaccine Quad IM 3+ YRS 2023-04-09 00:00:00 Completed [facility] 2023-04-09 00:00:00 Completed [facility] HPV9 2023-04-09 00:00:00 Completed [facility] Influenza Virus Vaccine Quad IM 3+ YRS 2023-04-08 00:00:00 Completed [facility] TD[facility] 2023-04-08 00:00:00 Completed [facility] HPV9 2023-04-08 00:00:00 Completed [facility] Influenza Virus Vaccine Quad IM 3+ YRS 2023-04-08 00:00:00 Completed [facility] TD[facility] 2023-04-08 00:00:00 Completed [facility] HPV9 2023-04-08 00:00:00 Completed [facility] HPV9 2023-04-07 14:15:00 Completed [facility] TD[facility] 2023-04-07 14:15:00 Completed [facility] Influenza Virus Vaccine Quad IM 3+ YRS 2023-04-07 14:15:00 Completed [facility] Influenza Virus Vaccine Quad IM 3+ YRS 2023-04-07 13:30:00 Completed [facility] HPV9 2023-04-07 13:30:00 Completed [facility] TD[facility] 2023-04-07 13:30:00 Completed [facility] HPV9 2023-04-05 13:15:00 Completed [facility] TD[facility] 2023-04-05 13:15:00 Completed [facility] Influenza Virus Vaccine Quad IM 3+ YRS 2023-04-05 13:15:00 Completed [facility] Influenza Virus Vaccine Quad IM 3+ YRS 2023-03-23 00:00:00 Completed [facility] TD[facility] 2023-03-23 00:00:00 Completed [facility] HPV9 2023-03-23 00:00:00 Completed [facility] Influenza Virus Vaccine Quad IM 3+ YRS 2023-03-12 00:00:00 Completed [facility] TD[facility] 2023-03-12 00:00:00 Completed [facility] HPV9 2023-03-12 00:00:00 Completed [facility] Influenza Virus Vaccine Quad IM 3+ YRS 2023-01-26 00:00:00 Completed [facility] TD[facility] 2023-01-26 00:00:00 Completed [facility] HPV9 2023-01-26 00:00:00 Completed [facility] Influenza Virus Vaccine Quad IM 3+ YRS 2023-01-01 00:00:00 Completed [facility] TD[facility] 2023-01-01 00:00:00 Completed [facility] HPV9 2023-01-01 00:00:00 Completed [facility] Influenza Virus Vaccine Quad IM 3+ YRS 2022-12-07 00:00:00 Completed [facility] TD[facility] 2022-12-07 00:00:00 Completed [facility] HPV9 2022-12-07 00:00:00 Completed [facility] Influenza Virus Vaccine Quad IM 3+ YRS 2022-09-28 00:00:00 Completed [facility] TDAP 2022-09-28 00:00:00 Completed [facility] HPV9 2022-09-28 00:00:00 Completed [facility] Influenza Virus Vaccine Quad IM 3+ YRS 2022-09-24 00:00:00 Completed [facility] TDAP 2022-09-24 00:00:00 Completed [facility] HPV2022-09-24 00:00:00 Completed [facility] Influenza Virus Vaccine Quad IM 3+ YRS 2022-08-28 00:00:00 Completed [facility] TDAP 2022-08-28 00:00:00 Completed [facility] HPV9 2022-08-28 00:00:00 Completed [facility] Influenza Virus Vaccine Quad IM 3+ YRS 2022-08-27 00:00:00 Completed [facility] TDAP 2022-08-27 00:00:00 Completed [facility] HPV9 2022-08-27 00:00:00 Completed [facility] [place] Influenza Virus Vaccine Quad IM 3+ YRS 2022-08-13 00:00:00 Completed [facility] TDAP 2022-08-13 00:00:00 Completed [facility] HPV9 2022-08-13 00:00:00 Completed [facility] Influenza Virus Vaccine Quad IM 3+ YRS 2022-01-01 00:00:00 Completed [facility] TDAP 2022-01-01 00:00:00 Completed [facility] HPV9 2022-01-01 00:00:00 Completed [facility] Influenza Virus Vaccine Quad IM 3+ YRS 2021-12-02 00:00:00 Completed [facility] TDAP 2021-12-02 00:00:00 Completed [facility] HPV9 2021-12-02 00:00:00 Completed [facility] Influenza Virus Vaccine Quad IM 3+ YRS 2021-04-07 00:00:00 Completed [facility] TDAP 2021-04-07 00:00:00 Completed [facility] HPV9 2021-04-07 00:00:00 Completed [facility] HPV9 2020-06-27 00:00:00 Completed [facility] HPV9 2020-06-27 00:00:00 Completed [facility] HPV9 2020-06-27 00:00:00 Completed [facility] HPV9 2020-06-27 00:00:00 Completed [facility] HPV9 2020-06-27 00:00:00 Completed [facility] HPV9 2020-06-27 00:00:00 Completed [facility] HPV9 2020-06-27 00:00:00 Completed [facility] HPV9 2020-06-27 00:00:00 Completed [facility] HPV9 2020-06-27 00:00:00 Completed [facility] HPV9 2020-06-27 00:00:00 Completed [facility] HPV9 2020-06-27 00:00:00 Completed [facility] HPV9 2020-06-27 00:00:00 Completed [facility] HPV9 2020-06-27 00:00:00 Completed [facility] HPV9 2020-06-27 00:00:00 Completed [facility] HPV9 2020-06-27 00:00:00 Completed [facility] HPV9 2020-06-27 00:00:00 Completed [facility] HPV9 2020-06-27 00:00:00 Completed [facility] HPV9 2020-06-27 00:00:00 Completed [facility] HPV9 2020-06-27 00:00:00 Completed [facility] HPV9 2020-06-27 00:00:00 Completed [facility] HPV9 2020-06-27 00:00:00 Completed [facility] HPV9 2020-06-27 00:00:00 Completed [facility] HPV9 2020-06-27 00:00:00 Completed [facility] HPV9 2020-06-27 00:00:00 Completed [facility] HPV9 2020-06-27 00:00:00 Completed [facility] HPV9 2020-06-27 00:00:00 Completed [facility] HPV9 2020-06-27 00:00:00 Completed [facility] HPV9 2020-06-27 00:00:00 Completed [facility] HPV9 2020-06-27 00:00:00 Completed [facility] HPV9 2020-06-27 00:00:00 Completed [facility] HPV9 2020-06-27 00:00:00 Completed [facility] HPV9 2020-06-27 00:00:00 Completed [facility] HPV9 2020-06-27 00:00:00 Completed [facility] HPV9 2020-06-27 00:00:00 Completed [facility] HPV9 2020-06-27 00:00:00 Completed [facility] HPV9 2020-06-27 00:00:00 Completed [facility] HPV9 2020-06-27 00:00:00 Completed [facility] HPV9 2020-06-27 00:00:00 Completed [facility] HPV9 2020-06-27 00:00:00 Completed [facility] HPV9 2020-06-27 00:00:00 Completed [facility] HPV9 2020-06-27 00:00:00 Completed [facility] HPV9 2020-06-27 00:00:00 Completed [facility] HPV9 2020-06-27 00:00:00 Completed [facility] HPV9 2020-06-27 00:00:00 Completed [facility] HPV9 2020-06-27 00:00:00 Completed [facility] HPV9 2020-06-27 00:00:00 Completed [facility] Influenza Virus Vaccine Quad IM 3+ YRS 2020-03-29 00:00:00 Completed [facility] TDAP 2020-03-29 00:00:00 Completed [facility] TDAP 2017-12-21 00:00:00 Completed [facility] TDAP 2017-12-21 00:00:00 Completed [facility] TDAP 2017-12-21 00:00:00 Completed [facility] TDAP 2017-12-21 00:00:00 Completed [facility] TDAP 2017-12-21 00:00:00 Completed [facility] TDAP 2017-12-21 00:00:00 Completed [facility] TDAP 2017-12-21 00:00:00 Completed [facility] TDAP 2017-12-21 00:00:00 Completed [facility] TDAP 2017-12-21 00:00:00 Completed [facility] TDAP 2017-12-21 00:00:00 Completed [facility] TDAP 2017-12-21 00:00:00 Completed [facility] TDAP 2017-12-21 00:00:00 Completed [facility] TDAP 2017-12-21 00:00:00 Completed [facility] TDAP 2017-12-21 00:00:00 Completed [facility] TDAP 2017-12-21 00:00:00 Completed [facility] TDAP 2017-12-21 00:00:00 Completed [facility] TDAP 2017-12-21 00:00:00 Completed [facility] TDAP 2017-12-21 00:00:00 Completed [facility] TDAP 2017-12-21 00:00:00 Completed [facility] TDAP 2017-12-21 00:00:00 Completed [facility] TDAP 2017-12-21 00:00:00 Completed [facility] TDAP 2017-12-21 00:00:00 Completed [facility] TDAP 2017-12-21 00:00:00 Completed [facility] TDAP 2017-12-21 00:00:00 Completed [facility] TDAP 2017-12-21 00:00:00 Completed [facility] TDAP 2017-12-21 00:00:00 Completed [facility] TDAP 2017-12-21 00:00:00 Completed [facility] TDAP 2017-12-21 00:00:00 Completed [facility] TDAP 2017-12-21 00:00:00 Completed [facility] TDAP 2017-12-21 00:00:00 Completed [facility] TDAP 2017-12-21 00:00:00 Completed [facility] TDAP 2017-12-21 00:00:00 Completed [facility] TDAP 2017-12-21 00:00:00 Completed [facility] TDAP 2017-12-21 00:00:00 Completed [facility] TDAP 2017-12-21 00:00:00 Completed [facility] TDAP 2017-12-21 00:00:00 Completed [facility] TDAP 2017-12-21 00:00:00 Completed [facility] TDAP 2017-12-21 00:00:00 Completed [facility] TDAP 2017-12-21 00:00:00 Completed [facility] TDAP 2017-12-21 00:00:00 Completed [facility] TDAP 2017-12-21 00:00:00 Completed [facility] TDAP 2017-12-21 00:00:00 Completed [facility] TDAP 2017-12-21 00:00:00 Completed [facility] TDAP 2017-12-21 00:00:00 Completed [facility] TDAP 2017-12-21 00:00:00 Completed [facility] TDAP 2017-12-21 00:00:00 Completed [facility] TDAP 2017-12-21 00:00:00 Completed [facility] TDAP 2016-07-09 00:00:00 Completed [facility] TDAP 2016-07-09 00:00:00 Completed [facility] TDAP 2016-07-09 00:00:00 Completed [facility] TDAP 2016-07-09 00:00:00 Completed [facility] TDAP 2016-07-09 00:00:00 Completed [facility] TDAP 2016-07-09 00:00:00 Completed [facility] TDAP 2016-07-09 00:00:00 Completed [facility] TDAP 2016-07-09 00:00:00 Completed [facility] TDAP 2016-07-09 00:00:00 Completed [facility] TDAP 2016-07-09 00:00:00 Completed [facility] TDAP 2016-07-09 00:00:00 Completed [facility] TDAP 2016-07-09 00:00:00 Completed [facility] TDAP 2016-07-09 00:00:00 Completed [facility] TDAP 2016-07-09 00:00:00 Completed [facility] TDAP 2016-07-09 00:00:00 Completed [facility] TDAP 2016-07-09 00:00:00 Completed [facility] TDAP 2016-07-09 00:00:00 Completed [facility] TDAP 2016-07-09 00:00:00 Completed [facility] TDAP 2016-07-09 00:00:00 Completed [facility] TDAP 2016-07-09 00:00:00 Completed [facility] TDAP 2016-07-09 00:00:00 Completed [facility] TDAP 2016-07-09 00:00:00 Completed [facility] TDAP 2016-07-09 00:00:00 Completed [facility] TDAP 2016-07-09 00:00:00 Completed [facility] TDAP 2016-07-09 00:00:00 Completed [facility] TDAP 2016-07-09 00:00:00 Completed [facility] TDAP 2016-07-09 00:00:00 Completed [facility] TDAP 2016-07-09 00:00:00 Completed [facility] TDAP 2016-07-09 00:00:00 Completed [facility] TDAP 2016-07-09 00:00:00 Completed [facility] TDAP 2016-07-09 00:00:00 Completed [facility] TDAP 2016-07-09 00:00:00 Completed [facility] TDAP 2016-07-09 00:00:00 Completed [facility] TDAP 2016-07-09 00:00:00 Completed [facility] TDAP 2016-07-09 00:00:00 Completed [facility] TDAP 2016-07-09 00:00:00 Completed [facility] TDAP 2016-07-09 00:00:00 Completed [facility] TDAP 2016-07-09 00:00:00 Completed [facility] TDAP 2016-07-09 00:00:00 Completed [facility] TDAP 2016-07-09 00:00:00 Completed [facility] TDAP 2016-07-09 00:00:00 Completed [facility] TDAP 2016-07-09 00:00:00 Completed [facility] TDAP 2016-07-09 00:00:00 Completed [facility] TDAP 2016-07-09 00:00:00 Completed [facility] TDAP 2016-07-09 00:00:00 Completed [facility] TDAP 2016-07-09 00:00:00 Completed [facility] Influenza Virus Vaccine Quad IM 3+ YRS 2016-03-25 00:00:00 Completed [facility] Influenza Virus Vaccine Quad IM 3+ YRS 2016-03-25 00:00:00 Completed [facility] Influenza Virus Vaccine Quad IM 3+ YRS 2016-03-25 00:00:00 Completed [facility] Influenza Virus Vaccine Quad IM 3+ YRS 2016-03-25 00:00:00 Completed [facility] Influenza Virus Vaccine Quad IM 3+ YRS 2016-03-25 00:00:00 Completed [facility] Influenza Virus Vaccine Quad IM 3+ YRS 2016-03-25 00:00:00 Completed [facility] Influenza Virus Vaccine Quad IM 3+ YRS 2016-03-25 00:00:00 Completed [facility] Influenza Virus Vaccine Quad IM 3+ YRS 2016-03-25 00:00:00 Completed [facility] Influenza Virus Vaccine Quad IM 3+ YRS 2016-03-25 00:00:00 Completed [facility] Influenza Virus Vaccine Quad IM 3+ YRS 2016-03-25 00:00:00 Completed [facility] Influenza Virus Vaccine Quad IM 3+ YRS 2016-03-25 00:00:00 Completed [facility] Influenza Virus Vaccine Quad IM 3+ YRS 2016-03-25 00:00:00 Completed [facility] Influenza Virus Vaccine Quad IM 3+ YRS 2016-03-25 00:00:00 Completed [facility] Influenza Virus Vaccine Quad IM 3+ YRS 2016-03-25 00:00:00 Completed [facility] Influenza Virus Vaccine Quad IM 3+ YRS 2016-03-25 00:00:00 Completed [facility] Influenza Virus Vaccine Quad IM 3+ YRS 2016-03-25 00:00:00 Completed [facility] Influenza Virus Vaccine Quad IM 3+ YRS 2016-03-25 00:00:00 Completed [facility] Influenza Virus Vaccine Quad IM 3+ YRS 2016-03-25 00:00:00 Completed [facility] Influenza Virus Vaccine Quad IM 3+ YRS 2016-03-25 00:00:00 Completed [facility] Influenza Virus Vaccine Quad IM 3+ YRS 2016-03-25 00:00:00 Completed [facility] Influenza Virus Vaccine Quad IM 3+ YRS 2016-03-25 00:00:00 Completed [facility] Influenza Virus Vaccine Quad IM 3+ YRS 2016-03-25 00:00:00 Completed [facility] Influenza Virus Vaccine Quad IM 3+ YRS 2016-03-25 00:00:00 Completed [facility] Influenza Virus Vaccine Quad IM 3+ YRS 2016-03-25 00:00:00 Completed [facility] [place] Influenza Virus Vaccine Quad IM 3+ YRS 2016-03-25 00:00:00 Completed [facility] Influenza Virus Vaccine Quad IM 3+ YRS 2016-03-25 00:00:00 Completed [facility] Influenza Virus Vaccine Quad IM 3+ YRS 2016-03-25 00:00:00 Completed [facility] Influenza Virus Vaccine Quad IM 3+ YRS 2016-03-25 00:00:00 Completed [facility] Influenza Virus Vaccine Quad IM 3+ YRS 2016-03-25 00:00:00 Completed [facility] Influenza Virus Vaccine Quad IM 3+ YRS 2016-03-25 00:00:00 Completed [facility] Influenza Virus Vaccine Quad IM 3+ YRS 2016-03-25 00:00:00 Completed [facility] Influenza Virus Vaccine Quad IM 3+ YRS 2016-03-25 00:00:00 Completed [facility] Influenza Virus Vaccine Quad IM 3+ YRS 2016-03-25 00:00:00 Completed [facility] Influenza Virus Vaccine Quad IM 3+ YRS 2016-03-25 00:00:00 Completed [facility] Influenza Virus Vaccine Quad IM 3+ YRS 2016-03-25 00:00:00 Completed [facility] Influenza Virus Vaccine Quad IM 3+ YRS 2016-03-25 00:00:00 Completed [facility] Influenza Virus Vaccine Quad IM 3+ YRS 2016-03-25 00:00:00 Completed [facility] Influenza Virus Vaccine Quad IM 3+ YRS 2016-03-25 00:00:00 Completed [facility] Influenza Virus Vaccine Quad IM 3+ YRS 2016-03-25 00:00:00 Completed [facility] Influenza Virus Vaccine Quad IM 3+ YRS 2016-03-25 00:00:00 Completed [facility] [place] Influenza Virus Vaccine Quad IM 3+ YRS 2016-03-25 00:00:00 Completed [facility] Influenza Virus Vaccine Quad IM 3+ YRS 2016-03-25 00:00:00 Completed [facility] Influenza Virus Vaccine Quad IM 3+ YRS 2016-03-25 00:00:00 Completed [facility] Influenza Virus Vaccine Quad IM 3+ YRS 2016-03-25 00:00:00 Completed [facility] Influenza Virus Vaccine Quad IM 3+ YRS 2016-03-25 00:00:00 Completed [facility] Influenza Virus Vaccine Quad IM 3+ YRS 2016-03-25 00:00:00 Completed [facility] Vital Signs Vital Name Observation Time Observation Value Comments S ource Systolic blood pressure 2024-07-31 22:06:00 96 mm[Hg] [facility] Diastolic blood pressure 2024-07-31 22:06:00 88 mm[Hg] [facility] Heart rate 2024-07-31 22:06:00 80 /min [facility] Body height 2024-07-31 22:06:00 170.2 cm [facility] Body weight 2024-07-31 22:06:00 94.348 kg [facility] BMI 2024-07-31 22:06:00 32.58 kg/m2 [facility] Oxygen saturation in Arterial blood by Pulse oximetry 2024-07-31 22:06:00 97 /min [facility] Systolic blood pressure 2024-07-06 16:55:00 103 mm[Hg] [facility] Diastolic blood pressure 2024-07-06 16:55:00 71 mm[Hg] [facility] Heart rate 2024-07-06 16:55:00 79 /min [facility] Respiratory rate 2024-07-06 16:55:00 16 /min [facility] Body height 2024-07-06 16:55:00 170.2 cm [facility] Body weight 2024-07-06 16:55:00 94.348 kg [facility] BMI 2024-07-06 16:55:00 32.58 kg/m2 [facility] Oxygen saturation in Arterial blood by Pulse oximetry 2024-07-06 16:55:00 99 /min [facility] Systolic blood pressure 2024-05-25 19:29:00 109 mm[Hg] [facility] Diastolic blood pressure 2024-05-25 19:29:00 66 mm[Hg] [facility] Heart rate 2024-05-25 19:29:00 77 /min [facility] Body temperature 2024-05-25 19:29:00 36.22 Sandhya [facility] Body height 2024-05-25 19:29:00 170.2 cm [facility] Body weight 2024-05-25 19:29:00 95.255 kg [facility] BMI 2024-05-25 19:29:00 32.89 kg/m2 [facility] Oxygen saturation in Arterial blood by Pulse oximetry 2024-05-25 19:29:00 100 /min [facility] Body height 2024-05-09 23:01:00 170.2 cm [facility] Body weight 2024-05-09 23:01:00 97.523 kg [facility] BMI 2024-05-09 23:01:00 33.67 kg/m2 [facility] Systolic blood pressure 2024-05-09 23:00:00 114 mm[Hg] [facility] Diastolic blood pressure 2024-05-09 23:00:00 70 mm[Hg] [facility] Heart rate 2024-05-09 23:00:00 66 /min [facility] Body temperature 2024-05-09 23:00:00 36.44 Sandhya [facility] Respiratory rate 2024-05-09 23:00:00 18 /min [facility] Oxygen saturation in Arterial blood by Pulse oximetry 2024-05-09 23:00:00 100 /min [facility] Systolic blood pressure 2024-05-09 20:40:00 105 mm[Hg] [facility] Diastolic blood pressure 2024-05-09 20:40:00 73 mm[Hg] [facility] Heart rate 2024-05-09 20:40:00 65 /min [facility] Respiratory rate 2024-05-09 20:40:00 13 /min [facility] Oxygen saturation in Arterial blood by Pulse oximetry 2024-05-09 20:40:00 96 /min [facility] Body temperature 2024-05-09 17:28:00 36.28 Sandhya [facility] Body height 2024-05-09 17:15:00 170.2 cm [facility] 2024-05-09 17:15:00 97.523 kg [facility] BMI 2024-05-09 17:15:00 33.67 kg/m2 [facility] Systolic blood pressure 2024-05-09 17:28:00 105 mm[Hg] [place] [facility] Diastolic blood pressure 2024-05-09 17:28:00 74 mm[Hg] [facility] Heart rate 2024-05-09 17:28:00 81 /min [facility] Body temperature 2024-05-09 17:28:00 36.28 Sandhya [facility] Respiratory rate 2024-05-09 17:28:00 22 /min [facility] Oxygen saturation in Arterial blood by Pulse oximetry 2024-05-09 17:28:00 95 /min [facility] Body height 2024-05-09 17:15:00 170.2 cm [facility] Body weight 2024-05-09 17:15:00 97.523 kg [facility] BMI 2024-05-09 17:15:00 33.67 kg/m2 [facility] Systolic blood pressure 2024-04-13 14:21:00 102 mm[Hg] [facility] Diastolic blood pressure 2024-04-13 14:21:00 72 mm[Hg] [facility] Heart rate 2024-04-13 14:21:00 70 /min [facility] Res[facility] 2024-04-13 14:21:00 18 /min [facility] Body height 2024-04-13 14:21:00 170.2 cm [facility] Body weight 2024-04-13 14:21:00 98.839 kg [facility] BMI 2024-04-13 14:21:00 34.13 kg/m2 [facility] Oxygen saturation in Arterial blood by Pulse oximetry 2024-04-13 14:21:00 100 /min [facility] Systolic blood pressure 2024-03-01 15:01:00 115 mm[Hg] [facility] Diastolic blood pressure 2024-03-01 15:01:00 79 mm[Hg] [facility] Heart rate 2024-03-01 15:01:00 84 /min [facility] Body temperature 2024-03-01 15:01:00 36.11 Sandhya [facility] Body height 2024-03-01 15:01:00 170.2 cm [facility] Body weight 2024-03-01 15:01:00 100.245 kg [facility] BMI 2024-03-01 15:01:00 34.61 kg/m2 [facility] Oxygen saturation in Arterial blood by Pulse oximetry 2024-03-01 15:01:00 100 /min [facility] Systolic blood pressure 2024-02-17 21:26:00 106 mm[Hg] [facility] Diastolic blood pressure 2024-02-17 21:26:00 73 mm[Hg] [facility] Heart rate 2024-02-17 21:26:00 86 /min [facility] Body temperature 2024-02-17 21:26:00 36.28 Sandhya [facility] Respiratory rate 2024-02-17 21:26:00 18 /min [facility] Body height 2024-02-17 21:26:00 167.6 cm [facility] Body weight 2024-02-17 21:26:00 97.693 kg [facility] BMI 2024-02-17 21:26:00 34.76 kg/m2 [facility] Oxygen saturation in Arterial blood by Pulse oximetry 2024-02-17 21:26:00 99 /min [facility] Systolic blood pressure 2024-01-20 13:35:00 101 mm[Hg] [facility] Diastolic blood pressure 2024-01-20 13:35:00 69 mm[Hg] [facility] Heart rate 2024-01-20 13:35:00 65 /min [facility] Body temperature 2024-01-20 13:35:00 36.94 Sandhya [facility] Body height 2024-01-20 13:35:00 170.2 cm [facility] Body weight 2024-01-20 13:35:00 98.431 kg Univ [facility] BMI 2024-01-20 13:35:00 33.99 kg/m2 [facility] Oxygen saturation in Arterial blood by Pulse oximetry 2024-01-20 13:35:00 99 /min [facility] Systolic blood pressure 2024-01-18 20:48:00 125 mm[Hg] [facility] Diastolic blood pressure 2024-01-18 20:48:00 86 mm[Hg] [facility] Heart rate 2024-01-18 20:48:00 75 /min [facility] Body height 2024-01-18 20:48:00 170.2 cm [facility] Body weight 2024-01-18 20:48:00 97.659 kg [facility] BMI 2024-01-18 20:48:00 33.72 kg/m2 [facility] Oxygen saturation in Arterial blood by Pulse oximetry 2024-01-18 20:48:00 97 /min [facility] Systolic blood pressure 2023-11-16 17:12:00 112 mm[Hg] [facility] Diastolic blood pressure 2023-11-16 17:12:00 76 mm[Hg] [facility] Heart rate 2023-11-16 17:12:00 64 /min [facility] Body height 2023-11-16 17:12:00 170.2 cm [facility] Body weight 2023-11-16 17:12:00 100.064 kg [facility] BMI 2023-11-16 17:12:00 34.55 kg/m2 [facility] Oxygen saturation in Arterial blood by Pulse oximetry 2023-11-16 17:12:00 99 /min [facility] Systolic blood pressure 2023-11-16 14:31:00 130 mm[Hg] [facility] Diastolic blood pressure 2023-11-16 14:31:00 86 mm[Hg] [facility] Heart rate 2023-11-16 14:31:00 72 /min [facility] Body temperature 2023-11-16 14:31:00 36.5 Sandhya [facility] Respiratory rate 2023-11-16 14:31:00 18 /min [facility] Body height 2023-11-16 14:31:00 170.2 cm [facility] Body weight 2023-11-16 14:31:00 100.245 kg [facility] BMI 2023-11-16 14:31:00 34.61 kg/m2 [facility] Oxygen saturation in Arterial blood by Pulse oximetry 2023-11-16 14:31:00 100 /min [facility] Systolic blood pressure 2023-10-27 05:54:00 115 mm[Hg] [facility] Diastolic blood pressure 2023-10-27 05:54:00 78 mm[Hg] [facility] Heart rate 2023-10-27 05:54:00 70 /min [facility] Respiratory rate 2023-10-27 05:54:00 16 /min [facility] Oxygen saturation in Arterial blood by Pulse oximetry 2023-10-27 05:54:00 99 /min [facility] Body temperature 2023-10-27 03:55:00 37.11 Sandhya [facility] Body height 2023-10-27 03:55:00 170.2 cm [facility] Body weight 2023-10-27 03:55:00 96.163 kg [facility] BMI 2023-10-27 03:55:00 33.20 kg/m2 [facility] Systolic blood pressure 2023-08-25 19:55:00 105 mm[Hg] [facility] Diastolic blood pressure 2023-08-25 19:55:00 68 mm[Hg] [facility] Heart rate 2023-08-25 19:55:00 80 /min [facility] Body temperature 2023-08-25 19:55:00 36.33 Sandhya [facility] Body weight 2023-08-25 19:55:00 99.882 kg [facility] BMI 2023-08-25 19:55:00 34.49 kg/m2 [facility] Systolic blood pressure 2023-08-20 19:47:00 131 mm[Hg] [facility] Diastolic blood pressure 2023-08-20 19:47:00 75 mm[Hg] [facility] Heart rate 2023-08-20 19:47:00 68 /min [facility] Body temperature 2023-08-20 19:47:00 36.56 Sandhya [facility] Respiratory rate 2023-08-20 19:47:00 17 /min [facility] Body height 2023-08-20 19:47:00 170.2 cm [facility] Body weight 2023-08-20 19:47:00 96.344 kg [facility] BMI 2023-08-20 19:47:00 33.27 kg/m2 [facility] Systolic blood pressure 2023-08-16 15:00:00 110 mm[Hg] [facility] Diastolic blood pressure 2023-08-16 15:00:00 80 mm[Hg] [facility] Heart rate 2023-08-16 15:00:00 65 /min [facility] Body height 2023-08-16 15:00:00 170.2 cm [facility] Body weight 2023-08-16 15:00:00 97.796 kg [facility] BMI 2023-08-16 15:00:00 33.77 kg/m2 [facility] Oxygen saturation in Arterial blood by Pulse oximetry 2023-08-16 15:00:00 100 /min [facility] Systolic blood pressure 2023-08-13 23:09:23 121 mm[Hg] [facility] Diastolic blood pressure 2023-08-13 23:09:23 76 mm[Hg] [facility] Heart rate 2023-08-13 23:09:23 74 /min [facility] Respiratory rate 2023-08-13 23:09:23 18 /min [facility] Oxygen saturation in Arterial blood by Pulse oximetry 2023-08-13 23:09:23 98 /min [facility] Body temperature 2023-08-13 20:34:00 36.89 Sandhya [facility] Body height 2023-08-13 20:34:00 170.2 cm [facility] Body weight 2023-08-13 20:34:00 96.616 kg [facility] BMI 2023-08-13 20:34:00 33.36 kg/m2 [facility] Systolic blood pressure 2023-07-29 20:07:00 95 mm[Hg] [facility] Diastolic blood pressure 2023-07-29 20:07:00 67 mm[Hg] [facility] Heart rate 2023-07-29 20:07:00 105 /min [facility] Body temperature 2023-07-29 20:07:00 36.28 Sandhya [facility] Body height 2023-07-29 20:07:00 170.2 cm [facility] Body weight 2023-07-29 20:07:00 96.48 kg [facility] BMI 2023-07-29 20:07:00 33.31 kg/m2 [facility] Systolic blood pressure 2023-07-14 21:36:00 95 mm[Hg] [place] [facility] Diastolic blood pressure 2023-07-14 21:36:00 71 mm[Hg] [facility] Heart rate 2023-07-14 21:36:00 76 /min [facility] Body temperature 2023-07-14 21:36:00 36.33 Sandhya [facility] Respiratory rate 2023-07-14 21:36:00 20 /min [facility] Body height 2023-07-14 21:36:00 170.2 cm [facility] Body weight 2023-07-14 21:36:00 96.163 kg [facility] BMI 2023-07-14 21:36:00 33.20 kg/m2 [facility] Oxygen saturation in Arterial blood by Pulse oximetry 2023-07-14 21:36:00 98 /min [facility] Systolic blood pressure 2023-07-07 21:03:00 101 mm[Hg] [facility] Diastolic blood pressure 2023-07-07 21:03:00 67 mm[Hg] [facility] Heart rate 2023-07-07 21:03:00 76 /min [facility] Body temperature 2023-07-07 21:03:00 36 Sandhya [facility] Body height 2023-07-07 21:03:00 170.2 cm [facility] Body weight 2023-07-07 21:03:00 96.752 kg [facility] BMI 2023-07-07 21:03:00 33.41 kg/m2 [facility] Systolic blood pressure 2023-07-01 21:39:00 116 mm[Hg] [facility] Diastolic blood pressure 2023-07-01 21:39:00 73 mm[Hg] [facility] Heart rate 2023-07-01 21:39:00 64 /min [facility] Body temperature 2023-07-01 21:39:00 36.17 Sandhya [facility] Respiratory rate 2023-07-01 21:39:00 18 /min [facility] Body height 2023-07-01 21:39:00 170.2 cm [facility] Body weight 2023-07-01 21:39:00 95.397 kg [facility] BMI 2023-07-01 21:39:00 32.94 kg/m2 [facility] Systolic blood pressure 2023-06-23 19:21:00 101 mm[Hg] [facility] Diastolic blood pressure 2023-06-23 19:21:00 70 mm[Hg] [facility] Heart rate 2023-06-23 19:21:00 73 /min [facility] Body temperature 2023-06-23 19:21:00 36.17 Sandhya [facility] Body height 2023-06-23 19:21:00 170.2 cm [facility] Body weight 2023-06-23 19:21:00 95.255 kg [facility] BMI 2023-06-23 19:21:00 32.89 kg/m2 [facility] Systolic blood pressure 2023-06-22 14:24:00 120 mm[Hg] [facility] Diastolic blood pressure 2023-06-22 14:24:00 83 mm[Hg] [facility] Heart rate 2023-06-22 14:24:00 67 /min [facility] Respiratory rate 2023-06-22 14:24:00 12 /min [facility] Body height 2023-06-22 14:24:00 170.2 cm [facility] Body weight 2023-06-22 14:24:00 96.344 kg [facility] BMI 2023-06-22 14:24:00 33.27 kg/m2 [facility] Oxygen saturation in Arterial blood by Pulse oximetry 2023-06-22 14:24:00 100 /min [facility] Heart rate 2023-06-22 01:45:00 84 /min [facility] Oxygen saturation in Arterial blood by Pulse oximetry 2023-06-22 01:45:00 98 /min [facility] Systolic blood pressure 2023-06-22 01:00:00 119 mm[Hg] [facility] Diastolic blood pressure 2023-06-22 01:00:00 85 mm[Hg] [facility] Respiratory rate 2023-06-22 01:00:00 16 /min [facility] Body height 2023-06-22 00:11:00 170.2 cm [facility] Body weight 2023-06-22 00:11:00 95.255 kg [facility] BMI 2023-06-22 00:11:00 32.89 kg/m2 [facility] Systolic blood pressure 2023-06-17 02:18:00 120 mm[Hg] [facility] Diastolic blood pressure 2023-06-17 02:18:00 82 mm[Hg] [facility] Heart rate 2023-06-17 02:18:00 90 /min [facility] Body temperature 2023-06-17 02:18:00 37 Sandhya [facility] Respiratory rate 2023-06-17 02:18:00 16 /min [facility] Body height 2023-06-17 02:18:00 170.2 cm [facility] Body weight 2023-06-17 02:18:00 94.938 kg [facility] BMI 2023-06-17 02:18:00 32.78 kg/m2 [facility] Oxygen saturation in Arterial blood by Pulse oximetry 2023-06-17 02:18:00 98 /min [facility] Systolic blood pressure 2023-05-26 20:20:00 121 mm[Hg] [facility] Diastolic blood pressure 2023-05-26 20:20:00 85 mm[Hg] [facility] Heart rate 2023-05-26 20:20:00 71 /min [facility] Body temperature 2023-05-26 20:20:00 36.89 Sandhya [facility] Respiratory rate 2023-05-26 20:20:00 18 /min [facility] Body height 2023-05-26 20:20:00 170.2 cm [facility] Body weight 2023-05-26 20:20:00 96.253 kg [facility] BMI 2023-05-26 20:20:00 33.24 kg/m2 [facility] Oxygen saturation in Arterial blood by Pulse oximetry 2023-05-26 20:20:00 100 /min [facility] Systolic blood pressure 2023-05-10 21:05:00 123 mm[Hg] [facility] Diastolic blood pressure 2023-05-10 21:05:00 80 mm[Hg] [facility] Heart rate 2023-05-10 21:05:00 72 /min [facility] Body temperature 2023-05-10 21:05:00 36.56 Sandhya [facility] Body height 2023-05-10 21:05:00 170.2 cm [facility] 2023-05-10 21:05:00 95.391 kg [facility] BMI 2023-05-10 21:05:00 32.94 kg/m2 [facility] Systolic blood pressure 2023-05-06 17:28:00 126 mm[Hg] [facility] Diastolic blood pressure 2023-05-06 17:28:00 84 mm[Hg] [facility] Heart rate 2023-05-06 17:28:00 70 /min [facility] Respiratory rate 2023-05-06 17:28:00 20 /min [facility] Body height 2023-05-06 17:28:00 170.2 cm [facility] Body weight 2023-05-06 17:28:00 95.165 kg [facility] BMI 2023-05-06 17:28:00 32.86 kg/m2 [facility] Oxygen saturation in Arterial blood by Pulse oximetry 2023-05-06 17:28:00 97 /min [facility] Systolic blood pressure 2023-05-01 17:29:00 111 mm[Hg] [facility] Diastolic blood pressure 2023-05-01 17:29:00 66 mm[Hg] [facility] Heart rate 2023-05-01 17:29:00 69 /min [facility] Body temperature 2023-05-01 17:29:00 36.67 Sandhya [facility] Respiratory rate 2023-05-01 17:29:00 18 /min [facility] Oxygen saturation in Arterial blood by Pulse oximetry 2023-05-01 17:29:00 99 /min [facility] Body height 2023-04-26 11:43:00 170.2 cm [facility] weight 2023-04-26 11:43:00 93.6 kg [facility] BMI 2023-04-26 11:43:00 32.32 kg/m2 [facility] Systolic blood pressure 2023-04-23 21:50:00 112 mm[Hg] [facility] Diastolic blood pressure 2023-04-23 21:50:00 76 mm[Hg] [facility] Heart rate 2023-04-23 21:50:00 71 /min [facility] Respiratory rate 2023-04-23 21:50:00 16 /min [facility] Body height 2023-04-23 21:50:00 170.2 [facility] 2023-04-23 21:50:00 91.627 kg [facility] BMI 2023-04-23 21:50:00 31.64 kg/m2 [facility] Oxygen saturation in Arterial blood by Pulse oximetry 2023-04-23 21:50:00 99 /min [facility] Systolic blood pressure 2023-04-09 13:51:00 116 mm[Hg] [facility] Diastolic blood pressure 2023-04-09 13:51:00 79 mm[Hg] [facility] Heart rate 2023-04-09 13:51:00 81 /min [facility] Body temperature 2023-04-09 13:51:00 36.5 Sandhya [facility] Respiratory rate 2023-04-09 13:51:00 18 /min [facility] Body height 2023-04-09 13:51:00 170.2 cm [facility] Body weight 2023-04-09 13:51:00 91.082 kg [facility] BMI 2023-04-09 13:51:00 31.45 kg/m2 [facility] Oxygen saturation in Arterial blood by Pulse oximetry 2023-04-09 13:51:00 97 /min [facility] Systolic blood pressure 2023-04-09 13:51:00 116 mm[Hg] [facility] Diastolic blood pressure 2023-04-09 13:51:00 79 mm[Hg] [facility] Heart rate 2023-04-09 13:51:00 81 /min [facility] Body temperature 2023-04-09 13:51:00 36.5 Sandhya [facility] Respiratory rate 2023-04-09 13:51:00 18 /min [facility] Body height 2023-04-09 13:51:00 170.2 cm [facility] 2023-04-09 13:51:00 91.082 kg [facility] BMI 2023-04-09 13:51:00 31.45 kg/m2 [facility] Oxygen saturation in Arterial blood by Pulse oximetry 2023-04-09 13:51:00 97 /min [facility] Systolic blood pressure 2023-04-07 18:48:00 111 mm[Hg] [facility] Diastolic blood pressure 2023-04-07 18:48:00 74 mm[Hg] [facility] Heart rate 2023-04-07 18:48:00 87 /min [facility] Body temperature 2023-04-07 18:48:00 36.67 Sandhya [facility] Respiratory rate 2023-04-07 18:48:00 18 /min [facility] Body height 2023-04-07 18:48:00 170.2 cm [facility] Body weight 2023-04-07 18:48:00 89.812 kg [facility] BMI 2023-04-07 18:48:00 31.01 kg/m2 [facility] Oxygen saturation in Arterial blood by Pulse oximetry 2023-04-07 18:48:00 100 /min [facility] Systolic blood pressure 2023-04-05 18:56:00 124 mm[Hg] [facility] Diastolic blood pressure 2023-04-05 18:56:00 79 mm[Hg] [facility] Heart rate 2023-04-05 18:56:00 81 /min [facility] Body temperature 2023-04-05 18:56:00 35.83 Sandhya [facility] Respiratory rate 2023-04-05 18:56:00 20 /min [facility] Body height 2023-04-05 18:56:00 170.2 cm [facility] Body weight 2023-04-05 18:56:00 90.855 kg [facility] BMI 2023-04-05 18:56:00 31.37 kg/m2 [facility] Systolic blood pressure 2023-01-26 04:00:00 119 mm[Hg] [facility] Diastolic blood pressure 2023-01-26 04:00:00 74 mm[Hg] [facility] Heart rate 2023-01-26 04:00:00 75 /min [facility] Respiratory rate 2023-01-26 04:00:00 12 /min [facility] Oxygen saturation in Arterial blood by Pulse oximetry 2023-01-26 04:00:00 99 /min [facility] Body temperature 2023-01-26 01:59:00 37.28 Sandhya [facility] Body height 2023-01-26 01:59:00 170.2 cm [facility] Body weight 2023-01-26 01:59:00 90.719 kg [facility] BMI 2023-01-26 01:59:00 31.32 kg/m2 [facility] Systolic blood pressure 2023-01-18 19:36:00 122 mm[Hg] [facility] Diastolic blood pressure 2023-01-18 19:36:00 83 mm[Hg] [facility] Heart rate 2023-01-18 19:36:00 75 /min [facility] 2023-01-18 19:36:00 36.83 Sandhya [facility] Respiratory rate 2023-01-18 19:36:00 16 /min [facility] Body height 2023-01-18 19:36:00 170.2 cm [facility] Body weight 2023-01-18 19:36:00 91.581 kg [facility] BMI 2023-01-18 19:36:00 31.62 kg/m2 [facility] Oxygen saturation in Arterial blood by Pulse oximetry 2023-01-18 19:36:00 99 /min [facility] Systolic blood pressure 2023-01-18 15:43:00 113 mm[Hg] [facility] Diastolic blood pressure 2023-01-18 15:43:00 73 mm[Hg] [facility] Heart rate 2023-01-18 15:43:00 75 /min [facility] Body temperature 2023-01-18 15:43:00 35.67 Sandhya [facility] Respiratory rate 2023-01-18 15:43:00 17 /min [facility] Body height 2023-01-18 15:43:00 170.2 cm [facility] Body weight 2023-01-18 15:43:00 90.538 kg [facility] BMI 2023-01-18 15:43:00 31.26 kg/m2 [facility] Systolic blood pressure 2023-01-09 18:15:00 86 mm[Hg] [facility] Diastolic blood pressure 2023-01-09 18:15:00 50 mm[Hg] [facility] Heart rate 2023-01-09 18:15:00 77 /min [facility] Body temperature 2023-01-09 18:15:00 36.83 Sandhya [facility] Respiratory rate 2023-01-09 18:15:00 18 /min [facility] Oxygen saturation in Arterial blood by Pulse oximetry 2023-01-09 18:15:00 99 /min [facility] Body height 2023-01-09 05:47:00 170.2 cm [facility] Body weight 2023-01-09 05:47:00 90.719 kg [facility] BMI 2023-01-09 05:47:00 31.32 kg/m2 [facility] Systolic blood pressure 2023-01-08 22:52:00 112 mm[Hg] [facility] Diastolic blood pressure 2023-01-08 22:52:00 65 mm[Hg] [facility] Heart rate 2023-01-08 22:52:00 107 /min [facility] Body temperature 2023-01-08 22:52:00 36.72 Sandhya [facility] Respiratory rate 2023-01-08 22:52:00 18 /min [facility] Oxygen saturation in Arterial blood by Pulse oximetry 2023-01-08 22:52:00 100 /min [facility] Body height 2023-01-08 15:28:00 170.2 cm [facility] Body weight 2023-01-08 15:28:00 90.719 kg [facility] BMI 2023-01-08 15:28:00 31.32 kg/m2 [facility] Systolic blood pressure 2023-01-04 14:17:00 110 mm[Hg] [facility] Diastolic blood pressure 2023-01-04 14:17:00 71 mm[Hg] [facility] Heart rate 2023-01-04 14:17:00 73 /min [facility] Body temperature 2023-01-04 14:17:00 36.39 Sandhya [facility] Respiratory rate 2023-01-04 14:17:00 20 /min [facility] Body height 2023-01-04 14:17:00 170.2 cm [facility] Body weight 2023-01-04 14:17:00 90.81 kg [facility] BMI 2023-01-04 14:17:00 31.36 kg/m2 [facility] Systolic blood pressure 2023-01-02 05:49:00 112 mm[Hg] [facility] Diastolic blood pressure 2023-01-02 05:49:00 72 mm[Hg] [facility] Heart rate 2023-01-02 05:49:00 77 /min [facility] Respiratory rate 2023-01-02 05:49:00 16 /min [facility] Oxygen saturation in Arterial blood by Pulse oximetry 2023-01-02 05:49:00 100 /min [facility] Body temperature 2023-01-02 05:34:00 36.61 Sandhya [facility] Body height 2023-01-02 03:54:00 162.6 cm [facility] 2023-01-02 03:54:00 89.812 kg [facility] BMI 2023-01-02 03:54:00 33.99 kg/m2 [facility] Sy[facility] pressure 2022-12-21 15:58:00 110 mm[Hg] [facility] Diastolic blood pressure 2022-12-21 15:58:00 68 mm[Hg] [facility] Heart rate 2022-12-21 15:58:00 75 /min [facility] Body temperature 2022-12-21 15:58:00 36.39 Sandhya [facility] Respiratory rate 2022-12-21 15:58:00 18 /min [facility] Body height 2022-12-21 15:58:00 170.2 cm [facility] Body weight 2022-12-21 15:58:00 89.54 kg [facility] BMI 2022-12-21 15:58:00 30.92 kg/m2 [facility] Oxygen saturation in Arterial blood by Pulse oximetry 2022-12-21 15:58:00 100 /min [facility] Systolic blood pressure 2022-12-11 15:46:00 107 mm[Hg] [facility] Diastolic blood pressure 2022-12-11 15:46:00 64 mm[Hg] [facility] Heart rate 2022-12-11 15:46:00 74 /min [facility] Body temperature 2022-12-11 15:46:00 35.89 Sandhya [facility] Respiratory rate 2022-12-11 15:46:00 18 /min [facility] Body height 2022-12-11 15:46:00 170.2 cm [facility] weight 2022-12-11 15:46:00 88.225 kg [facility] BMI 2022-12-11 15:46:00 30.46 kg/m2 [facility] Systolic blood pressure 2022-12-09 16:23:00 119 mm[Hg] [facility] Diastolic blood pressure 2022-12-09 16:23:00 70 mm[Hg] [facility] Heart rate 2022-12-09 16:23:00 65 /min [facility] [facility] Body temperature 2022-12-09 16:23:00 36.83 Sandhya [facility] Respiratory rate 2022-12-09 16:23:00 18 /min [facility] Body height 2022-12-09 16:23:00 170.2 cm [facility] Body weight 2022-12-09 16:23:00 89.982 kg Univ [facility] BMI 2022-12-09 16:23:00 31.07 kg/m2 Univ [facility] Systolic blood pressure 2022-11-12 20:14:00 128 mm[Hg] [facility] Diastolic blood pressure 2022-11-12 20:14:00 75 mm[Hg] [facility] Heart rate 2022-11-12 20:14:00 67 /min [facility] Body temperature 2022-11-12 20:14:00 36.67 Sandhya [facility] Respiratory rate 2022-11-12 20:14:00 20 /min [facility] Body height 2022-11-12 20:14:00 170.2 cm Univ [facility] Body weight 2022-11-12 20:14:00 88.962 kg Univ [facility] BMI 2022-11-12 20:14:00 30.72 kg/m2 [facility] Systolic blood pressure 2022-10-22 20:14:00 112 mm[Hg] [facility] Diastolic blood pressure 2022-10-22 20:14:00 74 mm[Hg] [facility] Heart rate 2022-10-22 20:14:00 72 /min Unive [facility] Body temperature 2022-10-22 20:14:00 36.67 Sandhya [facility] Respiratory rate 2022-10-22 20:14:00 18 /min [facility] Body weight 2022-10-22 20:14:00 88.451 kg Univ [facility] BMI 2022-10-22 20:14:00 30.54 kg/m2 [facility] Systolic blood pressure 2022-09-28 13:01:00 104 mm[Hg] [facility] Diastolic blood pressure 2022-09-28 13:01:00 63 mm[Hg] [facility] Heart rate 2022-09-28 13:01:00 75 /min Unive [facility] Body temperature 2022-09-28 13:01:00 36.72 Sandhya [facility] Respiratory rate 2022-09-28 13:01:00 18 /min [facility] Oxygen saturation in Arterial blood by Pulse oximetry 2022-09-28 13:01:00 100 /min [facility] Body weight 2022-09-26 22:36:00 88.451 kg [facility] BMI 2022-09-26 22:36:00 30.54 kg/m2 [facility] Respiratory rate 2022-09-28 02:10:00 10 /min [facility] Oxygen saturation in Arterial blood by Pulse oximetry 2022-09-28 02:10:00 100 /min [facility] Systolic blood pressure 2022-09-28 02:08:00 116 mm[Hg] [facility] Diastolic blood pressure 2022-09-28 02:08:00 76 mm[Hg] [facility] Body temperature 2022-09-28 01:42:00 36.67 Sandhya [facility] Heart rate 2022-09-28 00:40:00 72 /min Unive [facility] Body weight 2022-09-26 22:36:00 88.451 kg [facility] BMI 2022-09-26 22:36:00 30.54 kg/m2 [facility] Systolic blood pressure 2022-09-24 05:00:00 118 mm[Hg] [facility] Diastolic blood pressure 2022-09-24 05:00:00 87 mm[Hg] [facility] Heart rate 2022-09-24 05:00:00 78 /min Unive [facility] Respiratory rate 2022-09-24 05:00:00 20 /min [facility] Oxygen saturation in Arterial blood by Pulse oximetry 2022-09-24 05:00:00 100 /min [facility] Body temperature 2022-09-24 03:13:00 37.78 Sandhya [facility] Body height 2022-09-24 03:13:00 170.2 cm Univ [facility] Body weight 2022-09-24 03:13:00 88.86 kg Univ [facility] BMI 2022-09-24 03:13:00 30.68 kg/m2 [facility] Systolic blood pressure 2022-09-23 21:15:00 114 mm[Hg] [facility] o [facility] Diastolic blood pressure 2022-09-23 21:15:00 74 mm[Hg] [facility] Heart rate 2022-09-23 21:15:00 76 /min Unive [facility] Body temperature 2022-09-23 21:15:00 36.56 Sandhya [facility] Respiratory rate 2022-09-23 21:15:00 18 /min [facility] Body height 2022-09-23 21:15:00 170.2 cm Univ [facility] Body weight 2022-09-23 21:15:00 89.495 kg Univ [facility] BMI 2022-09-23 21:15:00 30.90 kg/m2 [facility] Systolic blood pressure 2022-08-11 21:40:00 125 mm[Hg] [facility] Diastolic blood pressure 2022-08-11 21:40:00 76 mm[Hg] [facility] Heart rate 2022-08-11 21:40:00 71 /min Unive [facility] Body temperature 2022-08-11 21:40:00 36.44 Sandhya [facility] Respiratory rate 2022-08-11 21:40:00 17 /min [facility] Body height 2022-08-11 21:40:00 170.2 cm Univ [facility] Body weight 2022-08-11 21:40:00 86.864 kg Univ [facility] BMI 2022-08-11 21:40:00 29.99 kg/m2 [facility] Respiratory rate 2022-04-27 08:02:00 18 /min [facility] Body height 2022-04-27 08:02:00 170.2 cm [facility] Body weight 2022-04-27 08:02:00 91.173 kg [facility] BMI 2022-04-27 08:02:00 31.48 kg/m2 [facility] Oxygen saturation in Arterial blood by Pulse oximetry 2022-04-27 08:02:00 99 /min [facility] Systolic blood pressure 2022-04-27 08:02:00 121 mm[Hg] [facility] Diastolic blood pressure 2022-04-27 08:02:00 82 mm[Hg] [facility] Heart rate 2022-04-27 08:02:00 85 /min Un[facility] Body temperature 2022-04-27 08:02:00 37.06 Sandhya [facility] Systolic blood pressure 2022-04-18 16:19:00 103 mm[Hg] [facility] Diastolic blood pressure 2022-04-18 16:19:00 69 mm[Hg] [facility] Heart rate 2022-04-18 16:19:00 84 /min Unive [facility] Body temperature 2022-04-18 16:19:00 36.5 Sandhya [facility] Respiratory rate 2022-04-18 16:19:00 20 /min [facility] Body height 2022-04-18 16:19:00 170.2 cm Univ [facility] Body weight 2022-04-18 16:19:00 91.491 kg [facility] BMI 2022-04-18 16:19:00 31.59 kg/m2 [facility] Systolic blood pressure 2022-04-02 18:22:00 122 mm[Hg] [facility] Diastolic blood pressure 2022-04-02 18:22:00 73 mm[Hg] [facility] Heart rate 2022-04-02 18:22:00 74 /min Unive [facility] Body temperature 2022-04-02 18:22:00 36 Sandhya [facility] Respiratory rate 2022-04-02 18:22:00 18 /min [facility] Body height 2022-04-02 18:22:00 170.2 cm [facility] Body weight 2022-04-02 18:22:00 92.59 kg [facility] BMI 2022-04-02 18:22:00 31.97 kg/m2 [facility] Procedures Procedure Date / Time Performed Performing Clinician Source ENDOSCOPY PROCEDURE DOCUMENTATION 2023-06 14:02:26 Doctor Unassigned, [place] [facility] XR KUB 2024-05-09 22:53:06 Vasiliy Sotomayor [facility] COLONOSCOPY (ENDO) 2024-05-09 20:11:47 Thais Marin [facility] COLONOSCOPY (ENDO) 2024-05-09 20:11:47 Thais Marin [facility] EGD (ENDO) 2024-05-09 20:06:13 Thais Marin [facility] EGD (ENDO) 2024-05-09 20:06:13 Thais Marin [facility] ESOPHAGOGASTRODUODENOSCOPY 2024-05-09 19:02:00 Reji Forman [facility] COLONOSCOPY 2024-05-09 19:02:00 Reji Forman [facility] POCT TEST 2024-05-09 00:00:00 Jami Maher [facility] POCT TEST 2024-05-09 00:00:00 Jami Maher [facility] POCT MOLECULAR STREP 2024-02-17 21:45:00 Unknown, Attending [facility] POCT SARS-COV-2 ANTIGEN (BIN AX NOW) 2024-02-17 21:27:00 Clary Richmond [facility] POCT TEST 2024-01-20 00:00:00 Thais Marin [facility] REFERRAL- REQUEST/RESPONSE 2023-11-12 18:24:24 Doctor Unassigned, [place] [facility] POCT TEST 2023-08-20 19:56:00 Pete Owens [facility] ASSIGNMENT OF BENEFITS 2023-08-13 22:13:19 Doctor Unassigned, [place] [facility] COMP. METABOLIC PANEL ([id number]) 2023-08-13 21:08:00 Bogdan Gabriel [facility] TOTAL BETA HCG ASSAY 2023-08-13 21:08:[address] [facility] CBC WITH DIFF 2023-08-13 21:08:00 Bogdan Gabriel [facility] URINALYSIS 2023-08-13 21:08:00 Bogdan Gabriel [facility] HB ABO GROUPING 2023-08-13 21:08:00 [facility] CONSENT/REFUSAL FOR DIAGNOSI S AND TREATMENT 2023-08-13 20:17:50 Doctor Unassigned, [place] [facility] C-REACTIVE PROTEIN 2023-07-29 20:37:00 Mariama Carrera [facility] COMP. METABOLIC PANEL ([id number]) 2023-07-29 20:37:00 Mariama Carrera [facility] SEDIMENTATION RATE 2023-07-29 20:37:00 Mariama Carrera [facility] CBC WITH DIFF 2023-07-29 20:37:00 Mariama Carrera [facility] URINALYSIS 2023-07-29 20:37:00 Mariama Carrera [facility] EXTERNAL PROVIDER RECORDS 2023-07-23 06:01:00 Doctor Unassigned, [place] [facility] URINE CULTURE 2023-07-01 21:55:00 Tawana Jean [facility] GALV ONLY - VAGINAL PATHOGEN S BY NUCLEIC ACID TESTING 2023-07-01 21:55:00 Tawana Jean [facility] POCT URINALYSIS 2023-07-01 21:39:00 Pete Owens [facility] CONSENT/REFUSAL FOR DIAGNOSI S AND TREATMENT 2023-06-22 00:07:05 Doctor Unassigned, [place] [facility] SLEEP STUDY DATA REPORT 2023-06-03 06:01:00 Doctor Unassigned, [place] [facility] US PELVIS COMPLETE WITH TRANSVAGINAL 2023-05-18 20:38:21 Abby Jordan [facility] MAGNESIUM 2023-05-01 10:09:00 Kathy [facility] BASIC METABOLIC PANEL (NA, K , CL, CO2, GLUCOSE, BUN, CREATININE, CA) 2023-05-01 10:09:00 Kathy [facility] CBC WITHOUT DIFF 2023-05-01 10:09:00 Kathy [facility] MAGNESIUM 2023-04-30 11:12:00 Kathy [facility] HEPATIC FUNCTION PANEL (8007 [id number]) (ALB,T.PRO,BILI T,BU/BC,ALT,AST,ALK PHOS) 2023-04-30 11:12:00 Chavezcolby Es[facility] BASIC METABOLIC PANEL (NA, K , CL, CO2, GLUCOSE, BUN, CREATININE, CA) 2023-04-30 11:12:00 Chavezcolby [facility] CBC WITHOUT DIFF 2023-04-30 11:12:00 Kathy [facility] PROTHROMBIN TIME / INR 2023-04-30 11:12:00 Chavezcolby [facility] MR VENOGRAM HEAD W WO CONTRAST 2023-04-21 0 03:22:57 Marta [facility] MR BRAIN W WO CONTRAST 2023-04-30 03:21:29 Marta [facility] RESPIRATORY PANEL BY PCR 2023-04-28 00:16:00 Devonte Veronica [facility] COVID-19 (ID NOW RAPID TESTING) 22:03:00 Devonte Veronica [facility] LAB ONLY COVID INTERPRETATION 2023-04-27 22:03:00 Devonte Veronica [facility] BASIC METABOLIC PANEL (NA, K , CL, CO2, GLUCOSE, BUN, CREATININE, CA) 2023-04-27 15:27:00 Marta [facility] CBC WITH DIFF 2023-04-27 15:27:00 [facility] 2023-04-27 00:00:00 Ivonne Lozano [facility] CREATINE KINASE 2023-04-26 22:35:00 Tanja Hanson [facility] CT HEAD WO CONTRAST 2023-04-26 22:24:07 Tanja Hanson [facility] SURGICAL PATHOLOGY EXAM 2023-04-26 14:16:00 Yolanda Baca [facility] HYSTEROSCOPY WITH DILATATION AND CURETTAGE 2023-04-26 13:06:00 Yolanda Baca [facility] CBC WITH DIFF 2023-04-26 11:59:00 Tono Taylor [facility] HB ABO GROUPING 2023-04-26 11:59:00 Claudio Goldsmith [facility] POCT TEST 2023-04-26 11:40:00 Loreto Oconnell [facility] CONSENT/REFUSAL FOR DIAGNOSI S AND TREATMENT 2023-04-26 11:37:09 Doctor Unassigned, [place] [facility] ASSIGNMENT OF BENEFITS 2023-04-26 11:34:48 Doctor Unassigned, [place] [facility] URINALYSIS 2023-04-09 16:16:00 UmañaYohannes [facility] CREATINE KINASE 2023-04-09 15:50:00 [facility] C-REACTIVE PROTEIN 2023-04-09 15:50:00 [facility] C4 COMPLEMENT 2023-04-09 15:50:00 UmañaYohannes [facility] IRON PANEL 2023-04-09 15:50:00 [facility] 2023-04-09 15:50:00 [facility] Jose [facility] VITAMIN D, 25-OH 2023-04-09 15:50:[address] [facility] [address] [facility] QUANTIFERON-TB ASSAY 2023-04-09 15:50:00 [facility] webbJose [facility] THIOPURINE METHYLTRANSFERASE, RBC 2022- 0-20 15:50:00 [facility] ANTI-SSA(RO) 2023-04-09 15:50:00 [facility] ANTI-DOUBLE STRANDED DNA 2023-04-09 15:50:00 [facility] QFT TB2 MINUS NIL 2023-04-09 15:50:00 [facility] LUPUS ANTICOAGULANT REFLEXIV E PANEL 2023-04-09 15:50:00 [facility] FERRITIN SERUM 2023-04-07 19:38:00 [facility] RHEUMATOID FACTOR 2023-04-07 19:38:00 Thais Marin [facility] COMP. METABOLIC PANEL ([id number]) 2023-04-07 19:38:00 Thais Marin [facility] SEDIMENTATION RATE 2023-04-07 19:38:00 Thais Marin [facility] CBC WITH DIFF 2023-04-07 19:38:00 Thais Marin [facility] ANTI-NUCLEAR ANTIBODY SCREEN 2023-04-07 19:38:00 Thais Marin [facility] HEPATITIS B SURFACE ANTIGEN 2023-04-07 19:38:00 Thais Marin [facility] HCV ANTIBODY 2023-04-07 19:38:00 Thais Marin [facility] GC & CHLAMYDIA AMPLIFIED ASSAY 2023-03-21 8 19:38:00 Thais Marin [facility] HSV 1 AND 2 GLYCOPROTEIN G IGG 2023-03-21 8 19:38:00 Thais Marin [facility] ADC OR ZACHARY ONLY - RPR 2023-04-07 19:38:00 Thais Marin [facility] HIV 1/2 AG-AB WITH REFLEX 2023-04-07 19:38:00 Thais Marin [facility] TRICHOMONAS AMPLIFIED ASSAY 2023-04-07 19:38:00 Thais Marin [facility] FERRITIN SERUM 2023-04-07 19:38:00 Jose Craig [facility] EKG-12 LEAD 2023-01-26 04:19:59 Mariann John [facility] CT ABDOMEN PELVIS WO CONTRAST 2023-01-26 03:13:00 Mariann John [facility] LIPASE 2023-01-26 02:21:00 Mariann John [facility] COMP. METABOLIC PANEL ([id number]) 2023-01-26 02:21:00 Mariann John [facility] CBC WITH DIFF 2023-01-26 02:21:00 Mariann John [facility] URINALYSIS 2023-01-26 02:05:00 Mariann John [facility] POCT TEST 2023-01-26 02:03:00 Mariann John [facility] NOTICE OF PRIVACY PRACTICES 2023-01-26 01:50:27 Doctor Unassigned, [place] [facility] CONSENT/REFUSAL FOR DIAGNOSI S AND TREATMENT 2023-01-26 01:49:25 Doctor Unassigned, [place] [facility] ASSIGNMENT OF BENEFITS 2023-01-18 21:28:15 Doctor Unassigned, [place] [facility] CONSENT/REFUSAL FOR DIAGNOSI S AND TREATMENT 2023-01-18 19:32:06 Doctor Unassigned, [place] [facility] POCT TEST 2023-01-18 17:54:00 Yolanda Baca [facility] CBC WITH DIFF 2023-01-09 08:24:00 Adum, Mariajose Gudino [facility] CBC WITH DIFF 2023-01-09 08:24:00 Adum, Mariajose Gudino [facility] CBC WITHOUT DIFF 2023-01-09 04:08:00 Adum, Mariajose Gudino [facility] CBC WITHOUT DIFF 2023-01-09 04:08:00 Adum, Mariajose Gudino [facility] US PELVIS LIMITED 2023-01-09 01:57:00 Adum, Mariajose Gudino [facility] US PELVIS LIMITED 2023-01-09 01:57:00 Adum, Mariajose Gudino [facility] DILATION AND CURETTAGE 2023-01-09 00:05:00 Adum, Mariajose Gudino [facility] HYSTEROSCOPY 2023-01-09 00:05:00 Adum, Mariajose Gudino [facility] DIAGNOSTIC LAPAROSCOPY 2023-01-09 00:05:00 Adum, Mariajose Gudino [facility] LAPAROSCOPIC LYSIS OF ADHESIONS 00:05:00 Adum, Mariajose Gudino [facility] LAPAROSCOPIC OVARIAN CYST ASPIRATION 2023-01-09 00:05:00 Adum, Mariajose Gudino [facility] URINALYSIS 2023-01-08 16:47:00 [facility] URINALYSIS 2023-01-08 16:47:00 Basilio [facility] LIPASE 2023-01-08 16:01:00 Basilio [facility] COMP. METABOLIC PANEL ([id number]) 2023-01-08 16:01:00 Basilio [facility] TOTAL BETA HCG ASSAY 2023-01-08 16:01:00 Adum, Mariajose Gudino [facility] CBC WITH DIFF 2023-01-08 16:01:00 Basilio [facility] HB ABO GROUPING 2023-01-08 16:01:00 Basilio [facility] LIPASE 2023-01-08 16:01:00 Basilio [facility] COMP. METABOLIC PANEL ([id number]) 2023-01-08 16:01:00 Ebjennifer [facility] TOTAL BETA HCG ASSAY 2023-01-08 16:01:00 Adum, Mariajose Gudino [facility] CBC WITH DIFF 2023-01-08 16:01:00 Basilio [facility] HB ABO GROUPING 2023-01-08 16:01:00 Basilio [facility] CONSENT/REFUSAL FOR DIAGNOSI S AND TREATMENT 2023-01-08 15:23:42 Doctor Unassigned, [place] [facility] CONSENT/REFUSAL FOR DIAGNOSI S AND TREATMENT 2023-01-08 15:23:42 Doctor Unassigned, [place] [facility] DAY SURGERY - ADC 2023-01-08 05:01:00 Doctor Unassigned, [place] [facility] COMP. METABOLIC PANEL ([id number]) 2023-01-02 04:08:00 Mariann John [facility] CBC WITH DIFF 2023-01-02 04:08:00 Mariann John [facility] URINALYSIS 2023-01-02 04:08:00 Mariann John [facility] HB ABO GROUPING 2023-01-02 04:08:00 Mariann John [facility] NOTICE OF PRIVACY PRACTICES 2023-01-02 03:45:21 Doctor Unassigned, [place] [facility] CONSENT/REFUSAL FOR DIAGNOSI S AND TREATMENT 2023-01-02 03:41:52 Doctor Unassigned, [place] [facility] TOTAL BETA HCG ASSAY 2023-01-01 22:12:00 Mamie Wilson [facility] POCT URINALYSIS 2022-12-21 16:05:00 Pete Owens [facility] AUTHORIZATION TO RELEASE PHI TO [facility] 2022-12-21 05:01:00 Doctor Unassigned, [place] [facility] POCT URINALYSIS W/O SPECIFIC GRAVITY 2022-12-11 15:38:00 Pete Owens [facility] POCT TEST 2022-12-11 15:37:00 Pete Owens [facility] POCT TEST 2022-12-09 17:56:00 Tawana Jean [facility] POCT URINALYSIS W/O SPECIFIC GRAVITY 2022-12-09 16:24:00 Tawana Jean [facility] REPORT OF 2022-12-09 05:01:00 Doctor Unassigned, [place] [facility] POCT TEST 2022-10-22 20:16:00 Tawana Jean [facility] PATIENT FINANCIAL POLICY 2022-10-22 20:09:06 Doctor Unassigned, [place] [facility] XR ANKLE <3 VW LEFT 2022-09-28 16:20:43 Rowdy Gillian [facility] XR ANKLE <3 VW LEFT 2022-09-28 16:20:43 Rowdy Gillian [facility] DILATION AND CURETTAGE 2022-09-28 00:56:00 Rowdy [facility] DILATION AND CURETTAGE 2022-09-28 00:56:00 Rowdy Gillian [facility] FIRST TRIMESTER LESS THAN 14 WEEKS WITH TRANSVAGINAL 2022-09-27 02:21:11 Winifred James [facility] FIRST TRIMESTER LESS THAN 14 WEEKS WITH TRANSVAGINAL 2022-09-27 02:21:11 Winifred James [facility] COMP. METABOLIC PANEL ([id number]) 2022-09-26 23:14:00 Winifred James [facility] TOTAL BETA HCG ASSAY 2022-09-26 23:14:00 Winifred James [facility] CBC WITH DIFF 2022-09-26 23:14:00 Winifred James [facility] PROTHROMBIN TIME / INR 2022-09-26 23:14:00 Winifred James [facility] COMP. METABOLIC PANEL ([id number]) 2022-09-26 23:14:00 Winifred James [facility] TOTAL BETA HCG ASSAY 2022-09-26 23:14:00 Winifred James [facility] CBC WITH DIFF 2022-09-26 23:14:00 Winifred James [facility] PROTHROMBIN TIME / INR 2022-09-26 23:14:00 Winifred James [facility] CONSENT/REFUSAL FOR DIAGNOSI S AND TREATMENT 2022-09-26 22:23:31 Doctor Unassigned, [place] [facility] CONSENT/REFUSAL FOR DIAGNOSI S AND TREATMENT 2022-09-26 22:23:31 Doctor Unassigned, [place] [facility] FIRST TRIMESTER LESS THAN 14 WEEKS WITH TRANSVAGINAL 2022-09-24 06:22:21 Leydi Castro [facility] POCT TEST 2022-09-24 04:43:00 Joanne Melissa [facility] BASIC METABOLIC PANEL (NA, K , CL, CO2, GLUCOSE, BUN, CREATININE, CA) 2022-09-24 04:20:00 Leydi Castro [facility] TOTAL BETA HCG ASSAY 2022-09-24 04:20:00 Leydi Castro [facility] CBC WITH DIFF 2022-09-24 04:20:00 Leydi Castro [facility] ASSIGNMENT OF BENEFITS 2022-09-24 03:31:15 Doctor Unassigned, [place] [facility] CONSENT/REFUSAL FOR DIAGNOSI S AND TREATMENT 2022-09-24 03:08:55 Doctor Unassigned, [place] [facility] POCT URINALYSIS 2022-09-23 21:19:00 Tawana Jean [facility] POCT TEST 2022-08-11 21:40:00 Tawana Jean [facility] REPORT OF 2022-08-11 06:01:00 Doctor Unassigned, [place] [facility] POCT URINALYSIS W/O SPECIFIC GRAVITY 2022-08-11 00:00:00 Tawana Jean [facility] CBC WITH DIFF 2022-04-27 08:22:00 [facility] [facility] POCT TEST 2022-04-27 08:22:00 Joanne Melissa [facility] NOTICE OF PRIVACY PRACTICES 2022-04-27 07:55:47 Doctor Unassigned, [place] [facility] CONSENT/REFUSAL FOR DIAGNOSI S AND TREATMENT 2022-04-27 07:54:13 Doctor Unassigned, [place] [facility] EXTERNAL PROVIDER RECORDS 2022-04-03 05:01:00 Doctor Unassigned, [place] [facility] POCT TEST 2022-04-02 19:31:00 Louise Prado [facility] THYROID STIMULATING HORMONE 2022-04-02 19:05:00 Louise Prado [facility] Encounters Start Date/Time End Date/Time Encounter Type Admission Type Attending [facility] Care Facility Care Department Encounter ID Source 2023-12-21 14:16:00 Outpatient [facility] [id number] [facility] 2023-10-29 10:17:01 Outpatient [facility] [id number] [facility] 2023-01-04 10:43:39 Outpatient R YOLANDA BACA [facility] [id number] [facility] 2021-04-22 01:27:59 Emergency [facility] [id number] [facility] 2021-04-21 19:32:10 Emergency [facility] [id number] [facility] 2021-04-18 21:43:36 Emergency [facility] [id number] [facility] 2024-08-10 10:13:31 2024-08-10 10:13:31 Outpatient SFA ONELIA [id number] Nahum F Todd 2024-05-10 00:00:00 2024-08-05 06:35:27 Orders Only Doctor Unassigned, [place] Doctor Unassigned, [place] [facility] (JOSE C) 1..840.114 350.1.13.10 4.2.7.2.686 [id number] [facility] 2024-07-31 16:30:00 2024-07-31 16:45:00 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 Lab, Ang - [place] Lab, Ang - Db [facility] OFF[facility] BU[facility] 1..840.114 350.1.13.10 4.2.7.2.686 [id number] [facility] 2024-07-31 16:30:00 2024-07-31 16:30:00 Outpatient R TAMIR EVANS FAKEHA [facility] [id number] [facility] 2024-07-31 15:40:00 2024-07-31 16:25:16 Office Visit Tamir Evans [facility] MED[facility] OFF[facility] BUILDING 1.2.840.114 350.1.13.10 4.2.7.2.686 [id number] [facility] 2024-07-28 10:23:26 2024-07-28 10:23:26 Outpatient SFA SFA [id number] Nahum Brooks 2024-07-27 11:00:00 2024-07-27 11:00:00 Outpatient R THAIS MARIN [facility] [id number] [facility] 2024-06-20 00:00:00 2024-07-22 18:15:47 Patient Secure Msg Doctor Unassigned, [place] Doctor Unassigned, [place] [facility] 1..840.114 350.1.13.10 4.2.7.2.686 [id number] [facility] 2024-07-21 09:00:00 2024-07-21 09:00:00 Outpatient R [facility] [id number] [facility] 2024-07-13 00:00:00 2024-07-16 16:59:20 [facility] 1.2.840.114 350.1.13.10 4.2.7.2.686 [id number] [facility] 2024-07-09 15:10:12 2024-07-09 15:10:12 Outpatient SFA SFA [id number] Nahum Brooks 2024-07-06 10:00:00 2024-07-06 11:00:00 [facility] 1.2.840.114 350.1.13.10 4.2.7.2.686 [id number] [facility] 2024-07-06 10:00:00 2024-07-06 10:00:00 Outpatient R SARAH [facility] [id number] [facility] 2024-07-03 00:00:00 2024-07-03 12:23:17 Specialty Pharmacy Larisa Ocampo Mai, Ngoc Mai [facility] 1.0.114 350.1.13.10 4.2.7.2.686 [id number] [facility] 2024-07-03 00:00:00 2024-07-03 00:00:00 Outpatient R ALFREDITO ROSAS [facility] [id number] [facility] 2024-06-30 15:16:17 2024-06-30 15:16:17 Outpatient SFA SFA [id number] Nahum Sheridan [place] 2024-06-23 10:40:55 2024-06-23 10:40:55 Outpatient SFA SFA 102 Nahum Sheridan [place] 2024-06-21 15:25:11 2024-06-21 15:25:11 Outpatient SFA SFA 010 Nahum Sheridan [place] 2024-06-18 00:00:00 2024-06-19 08:59:23 Refill Pipadam [facility] MEDICAL OFFICE BUILDING 1..114 350.1.13.10 4.2.7.2.686 [id number] [facility] 2024-05-16 00:00:00 2024-06-17 18:16:40 Patient Secure Msg Thais Marin [facility] 1..114 350.1.13.10 4.2.7.2.686 [id number] [facility] 2024-06-16 00:00:00 2024-06-16 10:52:06 Telephone Sacha Lowe [facility] 1..114 350.1.13.10 4.2.7.2.686 [id number] 086 [id number] [facility] 2024-05-08 00:00:00 2024-06-10 18:18:00 Patient Secure Msg Doctor Unassigned, [place] Doctor Unassigned, [place] [facility] 1.2.840.114 350.1.13.10 4.2.7.2.686 [id number] [facility] 2024-06-07 00:00:00 2024-06-08 10:47:02 Telephone Juan Reece [facility] 1.2.840.114 350.1.13.10 4.2.7.2.686 [id number] 086 [id number] [facility] 2024-06-01 00:00:00 2024-06-07 17:00:30 Patient Secure Msg Pete Reeceak [facility] 1.2.840.114 350.1.13.10 4.2.7.2.686 [id number] [facility] 2024-06-07 00:00:00 2024-06-07 00:00:00 Outpatient ROSAS WALL [facility] [id number] [facility] 2024-05-29 00:00:00 2024-05-29 00:00:00 Outpatient ROSAS WALL [facility] [id number] [facility] 2024-05-25 00:00:00 2024-05-25 15:04:31 Specialty Pharmacy Cari Martinez Shat[facility] 1.2.840.114 350.1.13.10 4.2.7.2.686 [id number] [facility] 2024-05-25 13:00:00 2024-05-25 14:04:09 Outpatient ROSAS WALL [facility] [id number] [facility] 2024-05-25 13:00:00 2024-05-25 14:04:09 Office Visit Rosas Dumont [facility] 1.114 350.1.13.10 4.2.7.2.686 [id number] [facility] 2024-05-24 16:30:00 2024-05-24 16:30:00 Outpatient R THAIS MARIN [facility] [id number] [facility] 2024-05-11 00:00:00 2024-05-11 17:37:27 Refill Pipes, [facility] MEDICAL OFFICE BUILDING 1..114 350.1.13.10 4.2.7.2.686 [id number] [facility] 2024-05-09 17:02:00 2024-05-09 18:08:00 Emergency X COOKIE MELGAR JOHNNA [facility] ERT [id number] [facility] 2024-05-09 17:02:00 2024-05-09 18:08:00 Emergency Cookie Melgar [facility] ([facility] 1.114 350.1.13.10 4.2.7.2.686 [id number] [facility] 2024-05-09 10:54:00 2024-05-09 16:43:00 Outpatient R REJI FORMAN [facility] GIKatalina [id number] [facility] 2024-05-09 10:54:00 2024-05-09 16:43:00 Hospital Encounter Reji Forman [facility] 1..114 350.1.13.10 4.2.7.2.686 [id number] [facility] 2024-05-09 11:45:00 2024-05-09 12:45:00 Surgery Reji Forman [facility] 1..114 350.1.13.10 4.2.7.2.686 [id number] 020 [id number] [facility] 2024-04-22 00:00:00 2024-04-23 02:02:21 Mobile Device Encounter Sarah [facility] OFFICE BUILDING 1.2.840.114 350.1.13.10 4.2.7.2.686 [id number] 092 [id number] [facility] 2024-04-18 00:00:00 2024-04-18 11:19:09 Telephone Rosette Gan [facility] 1.2.840.114 350.1.13.10 4.2.7.2.686 [id number] [id number] [facility] 2024-04-13 09:00:00 2024-04-13 10:00:00 Office Visit Sarah [facility] MEDICAL OFFICE BUILDING 1.2.840.114 350.1.13.10 4.2.7.2.686 [id number] [facility] 2024-04-13 09:00:00 2024-04-13 09:00:00 Outpatient R SARAH [facility] [id number] [facility] 2024-04-11 00:00:00 2024-04-11 10:53:01 Telephone Rosette Gan [facility] 1.2.840.114 350.1.13.10 4.2.7.2.686 [id number] [facility] 2024-04-04 00:00:00 2024-04-04 12:42:55 Specialty Pharmacy Shandra Green Ashley M [facility] 1.2.840.114 350.1.13.10 4.2.7.2.686 [id number] 016 [id number] [facility] 2024-04-04 00:00:00 2024-04-04 12:38:29 Specialty Pharmacy Shandra Green Ashley M [facility] .840.114 350.1.13.10 4.2.7.2.686 [id number] 016 [id number] [facility] 2024-04-04 10:30:00 2024-04-04 10:30:00 Outpatient MILLIE MENJIVAR [facility] [id number] [facility] 2024-04-04 00:00:00 2024-04-04 09:00:54 Specialty Pharmacy Azalea Dotson Sudha [facility] .84.114 350.1.13.10 4.2.7.2.686 [id number] [facility] 2024-04-03 10:20:00 2024-04-03 10:20:00 Outpatient MILLIE MENJIVAR [facility] [id number] [facility] 2024-03-15 11:00:00 2024-03-15 11:00:00 Outpatient KAY JAIMES [facility] [id number] [facility] 2024-03-03 00:00:00 2024-03-03 14:25:42 Specialty Pharmacy Mary Valencia Tamara L [facility] .84.114 350.1.13.10 4.2.7.2.686 [id number] [facility] 2024-03-02 00:00:00 2024-03-02 09:12:24 Specialty Pharmacy Amadeo Cedeño Gary [facility] .840.114 350.1.13.10 4.2.7.2.686 [id number] [id number] [facility] 2024-03-01 11:15:00 2024-03-01 11:30:00 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 Lab, [facility] Rosas Dumont, [facility] 1.2840.114 350.1.13.10 4.2.7.2.686 [id number] [facility] 2024-03-01 10:00:00 2024-03-01 11:03:21 Outpatient R ROSAS DUMONT [facility] [id number] [facility] 2024-03-01 10:00:00 2024-03-01 11:03:21 Office Visit Rosas Dumont [facility] 1.2840.114 350.1.13.10 4.2.7.2.686 [id number] [facility] 2024-01-20 00:00:00 2024-02-26 18:24:48 Patient Secure Msg Tania Thais [facility] MEDICAL OFFICE BUILDING 1.2.840.114 350.1.13.10 4.2.7.2.686 [id number] 044 [id number] [facility] 2024-02-24 00:00:00 2024-02-24 17:21:48 Clinic Assessment Sarah [facility] MEDICAL OFFICE BUILDING 1.2.840.114 350.1.13.10 4.2.7.2.686 [id number] [facility] 2024-02-24 16:00:00 2024-02-24 16:00:00 Outpatient R SARAH [facility] [id number] [facility] 2024-02-23 00:00:00 2024-02-23 08:00:38 Patient Secure Mag [facility] MEDICAL OFFICE BUILDING 1.2.840.114 350.1.13.10 4.2.7.2.686 [id number] 044 [id number] [facility] 2024-02-21 00:00:00 2024-02-21 11:15:36 Specialty Pharmacy Domenica Ludwig Monique [facility] 1.2.840.114 350.1.13.10 4.2.7.2.686 [id number] [id number] [facility] 2024-02-17 16:20:00 2024-02-17 16:40:00 Urgent Care Ayde Conley, Attending [facility] MEDICAL OFFICE BUILDING 1.840.114 350.1.13.10 4.2.7.2.686 [id number] [facility] 2024-02-17 16:20:00 2024-02-17 16:20:00 Outpatient R AYDE CONLEY [facility] [id number] [facility] 2024-02-16 00:00:00 2024-02-16 16:41:31 Telephone Wade Morse Steven [facility] 1.840.114 350.1.13.10 4.2.7.2.686 [id number] [facility] 2024-02-08 13:00:00 2024-02-08 13:00:00 Outpatient R KAY SMITH [facility] [id number] [facility] 2024-02-07 15:05:00 2024-02-07 15:05:00 Outpatient R THAIS MARIN [facility] [id number] [facility] 2024-01-25 00:00:00 2024-01-25 16:15:42 Patient Secure Msg Doctor Unassigned, [place] Doctor Unassigned, [place] [facility] OFF[facility]ILD[facility] 1.84114 350.1.13.10 4.2.7.2.686 [id number] 044 [id number] [facility] 2024-01-21 00:00:00 2024-01-21 15:32:45 Telephone Azalea Dotson [facility] 1.84.114 350.1.13.10 4.2.7.2.686 [id number] [id number] [facility] 2024-01-20 00:00:00 2024-01-20 10:56:30 Patient Secure Msg Thais Marin [facility] AMEYA?[facility] MEDICAL OFFICE BUILDING 1.2.840.114 350.1.13.10 4.2.7.2.686 [id number] [id number] [facility] 2024-01-20 10:30:00 2024-01-20 10:45:00 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 Lab, Ang - Db Thais Marin [facility] MEDICAL OFFICE BUILDING 1..840.114 350.1.13.10 4.2.7.2.686 [id number] [facility] 2024-01-20 09:00:00 2024-01-20 09:10:36 Outpatient R THAIS MARIN [facility] [id number] [facility] 2024-01-20 09:00:00 2024-01-20 09:10:36 Office Visit Thais Marin [facility] AMEYA?[facility] MEDICAL OFFICE BUILDING 1..840.114 350.1.13.10 4.2.7.2.686 [id number] [facility] 2024-01-19 08:30:00 2024-01-19 08:30:00 Outpatient R ANDREW MARINLIE [facility] [id number] [facility] 2024-01-18 15:30:00 2024-01-18 16:00:00 Office Visit Sarah [facility] MEDICAL OFFICE BUILDING 1.2.840.114 350.1.13.10 4.2.7.2.686 [id number] [facility] 2024-01-18 15:30:00 2024-01-18 15:30:00 Outpatient R SARAH [facility] [id number] [facility] 2023-07-14 00:00:00 2024-01-03 11:59:22 Letter (Out) Rosette Gan [facility] 1.2840.114 350.1.13.10 4.2.7.2.686 [id number] [facility] 2023-11-26 00:00:00 2023-12-13 14:08:27 Telephone Sacha Lowe [facility] 1.20.114 350.1.13.10 4.2.7.2.686 [id number] [id number] [facility] 2023-12-10 15:00:00 2023-12-10 15:00:00 Outpatient R THAIS MARIN [facility] [id number] [facility] 2023-12-02 00:00:00 2023-12-02 14:53:27 Telephone [facility] MEDICAL OFFICE BUILDING 1.284114 350.1.13.10 4.2.7.2.686 [id number] [facility] 2023-12-01 11:00:00 2023-12-01 11:00:00 Outpatient R THAIS MARIN [facility] [id number] [facility] 2023-11-24 00:00:00 2023-11-25 09:52:44 Patient Secure Msg [facility] MED[facility] OFF[facility] BUILDING 1.2840.114 350.1.13.10 4.2.7.2.686 [id number] 044 [id number] [facility] 2023-11-19 00:00:00 2023-11-24 15:03:15 Patient Secure Msg [facility] 1.2840.114 350.1.13.10 4.2.7.2.686 [id number] 086 [id number] [facility] 2023-11-16 00:00:00 2023-11-18 10:32:20 Telephone Pipadam [facility] MEDICAL OFFICE BUILDING 1.2840.114 350.1.13.10 4.2.7.2.686 [id number] 092 [id number] [facility] 2023-11-17 00:00:00 2023-11-17 15:54:10 Refill Tania Thais [facility] 1.840.114 350.1.13.10 4.2.7.2.686 [id number] 044 [id number] [facility] 2023-11-16 12:00:00 2023-11-16 12:30:00 Office Visit Sarah [facility] MEDICAL OFFICE BUILDING 1.2840.114 350.1.13.10 4.2.7.2.686 [id number] [facility] 2023-11-16 09:30:00 2023-11-16 10:32:49 Outpatient R MILLIE BRIDGES [facility] [id number] [facility] 2023-11-16 09:30:00 2023-11-16 10:32:49 Office Visit Juan [facility] 1.0.114 350.1.13.10 4.2.7.2.686 [id number] [id number] [facility] 2023-10-26 00:00:00 2023-11-01 11:14:23 Refill [facility] MEDICAL OFFICE BUILDING 1.2840.114 350.1.13.10 4.2.7.2.686 [id number] [facility] 2023-10-26 22:57:00 2023-10-27 01:00:00 Emergency X JOANNE MELISSA [facility] ERT [id number] [facility] 2023-10-26 22:57:00 2023-10-27 01:00:[address] [facility] 1.2.840.114 350.1.13.10 4.2.7.2.686 [id number] [facility] 2023-10-25 00:00:00 2023-10-25 17:13:10 Telephone Pipes, [facility] MEDICAL OFFICE BUILDING 1.2.840.114 350.1.13.10 4.2.7.2.686 [id number] [id number] [facility] 2023-10-20 15:00:00 2023-10-20 16:41:08 Outpatient KVNG SCHILLING [facility] [id number] [facility] 2023-10-20 15:00:00 2023-10-20 16:41:08 Office Visit Kvng Gilman [facility] 1.2.840.114 350.1.13.10 4.2.7.2.686 [id number] [facility] 2023-10-04 09:30:00 2023-10-04 09:30:00 Outpatient ROSETTE LEE [facility] [id number] [facility] 2023-09-29 14:30:00 2023-09-29 14:30:00 Outpatient Alannah [facility] [id number] [facility] 2023-09-27 08:00:00 2023-09-27 08:00:00 Outpatient TAWANA LLANOS [facility] [id number] [facility] 2023-09-22 13:45:00 2023-09-22 13:45:00 Outpatient BOB VIRGEN CRAIG [facility] [id number] [facility] 2023-09-22 00:00:00 2023-09-22 00:00:00 Case Management Ana Montejo [facility] HER[facility]DA VANESSIO [facility] BUILDING 1.84.114 350.1.13.10 4.2.7.2.686 [id number] [facility] 2023-09-16 00:00:00 2023-09-16 00:00:00 Refill Juan Reece [facility] 1.0.114 350.1.13.10 4.2.7.2.686 [id number] [id number] [facility] 2023-09-16 00:00:00 2023-09-16 00:00:00 Patient Secure Juan Erickson [facility] 1.84.114 350.1.13.10 4.2.7.2.686 [id number] [id number] [facility] 2023-09-15 15:10:00 2023-09-15 16:12:53 Outpatient R KVNG GILMAN [facility] [id number] [facility] 2023-09-15 15:10:00 2023-09-15 16:12:53 Office Visit Kvng Gilman [facility] 1.84.114 350.1.13.10 4.2.7.2.686 [id number] [facility] 2023-09-09 14:45:00 2023-09-09 14:45:00 Outpatient R TAWANA JEAN [facility] [id number] [facility] 2023-09-09 10:15:00 2023-09-09 11:28:12 Outpatient R BOB FLORES CRAIG [facility] [id number] [facility] 2023-09-09 10:15:00 2023-09-09 11:28:12 Ancillary Visit Ana Montejo Craig L [facility] N[facility] BUILDING 1..840.114 350.1.13.10 4.2.7.2.686 [id number] [facility] 2023-09-09 00:00:00 2023-09-09 00:00:00 Refill Thais Marin Marlene [facility]?GERARDO [facility] MEDICAL OFFICE BUILDING 1.840.114 350.1.13.10 4.2.7.2.686 [id number] [id number] [facility] 2023-09-08 11:00:00 2023-09-08 11:00:00 Outpatient THAIS HALL [facility] [id number] [facility] 2023-09-07 00:00:00 2023-09-07 00:00:00 Telephone Dolly [facility] 1.840.114 350.1.13.10 4.2.7.2.686 [id number] [facility] 2023-09-06 09:30:00 2023-09-06 09:30:00 Outpatient R ROSETTE GAN [facility] [id number] [facility] 2023-09-04 00:00:00 2023-09-04 00:00:00 Refill Thais Marin [facility] 1.840.114 350.1.13.10 4.2.7.2.686 [id number] [facility] 2023-09-01 15:30:00 2023-09-01 15:30:00 Outpatient R ROSETTE GAN [facility] [id number] [facility] 2023-09-01 00:00:00 2023-09-01 00:00:00 Patient Secure Msg Dolly [facility] 1.840.114 350.1.13.10 4.2.7.2.686 [id number] [facility] 2023-08-30 00:00:00 2023-08-30 00:00:00 Refill Pipes, [facility] OFFICE BUILDING 1.2.840.114 350.1.13.10 4.2.7.2.686 [id number] [facility] 2023-08-26 00:00:00 2023-08-26 00:00:00 Case Management Ana Montejo [facility] 1.2.840.114 350.1.13.10 4.2.7.2.686 [id number] [facility] 2023-08-26 00:00:00 2023-08-26 00:00:00 Refill Pipes, [facility] OFFICE BUILDING 1.2.840.114 350.1.13.10 4.2.7.2.686 [id number] [facility] 2023-08-26 00:00:00 2023-08-26 00:00:00 Refill Jose C Wellington [facility] 1.2.840.114 350.1.13.10 4.2.7.2.686 [id number] [facility] 2023-08-25 13:58:00 2023-08-25 23:59:00 Outpatient R JOSE C WELLINGTON [facility] [id number] [facility] 2023-08-25 13:58:00 2023-08-25 23:59:00 Hospital Encounter Jose C Wellington [facility] [place] [facility] 1.2.840.114 350.1.13.10 4.2.7.2.686 [id number] [facility] 2023-08-25 13:40:00 2023-08-25 14:51:03 Office Visit [facility] 1..840.114 350.1.13.10 4.2.7.2.686 [id number] [facility] 2023-08-20 13:00:00 2023-08-20 14:03:14 Outpatient R PETE OWENS [facility] [id number] [facility] 2023-08-20 13:00:00 2023-08-20 14:03:14 Nurse Visit Visit, David-Rmchp Nurse Pete Owens [facility] 1..840.114 350.1.13.10 4.2.7.2.686 [id number] [facility] 2023-08-17 09:30:00 2023-08-17 09:30:00 Outpatient R MORRO MICHAEL [facility] [id number] [facility] 2023-08-17 00:00:00 2023-08-17 00:00:00 Case Management Ana Montejo [facility] 1..840.114 350.1.13.10 4.2.7.2.686 [id number] [facility] 2023-08-16 09:00:00 2023-08-16 09:26:12 Outpatient R SARAH [facility] [id number] [facility] 2023-08-16 09:00:00 2023-08-16 09:26:12 Office Visit Sarah [facility] MEDICAL OFFICE BUILDING 1..840.114 350.1.13.10 4.2.7.2.686 [id number] [facility] 2023-08-13 14:35:00 2023-08-13 17:12:00 Emergency X BOGDAN GABRIEL [facility] ERT [id number] [facility] 2023-08-13 14:35:00 2023-08-13 17:12:[address] [facility] 1.2840.114 350.1.13.10 4.2.7.2.686 [id number] [facility] 2023-08-13 13:15:00 2023-08-13 13:15:00 Outpatient R PETE OWENS [facility] [id number] [facility] 2023-08-13 00:00:00 2023-08-13 00:00:00 Patient Secure Msg Pete Owens [facility] ELECTRONIC SCALE [facility] 1.2840.114 350.1.13.10 4.2.7.2.686 [id number] [facility] 2023-08-09 11:00:00 2023-08-09 11:00:00 Outpatient R KAY SMITH [facility] [id number] [facility] 2023-08-09 00:00:00 2023-08-09 00:00:00 Telephone Lorena Kirk [facility] MEDICAL OFFICE [facility] 1.2840.114 350.1.13.10 4.2.7.2.686 [id number] [id number] [facility] 2023-08-02 00:00:00 2023-08-02 00:00:00 Telephone Jose C Wellington [facility] [place] [facility] 1.2840.114 350.1.13.10 4.2.7.2.686 [id number] [facility] 2023-07-30 00:00:00 2023-07-30 00:00:00 Patient Secure Msg Jose C Wellington [facility] 1.2840.114 350.1.13.10 4.2.7.2.686 [id number] [facility] 2023-07-29 14:05:00 2023-07-29 23:59:00 Hospital Encounter Fernanda [facility] 1.0.114 350.1.13.10 4.2.7.2.686 [id number] [facility] 2023-07-29 15:00:00 2023-07-29 15:15:00 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 Lab, [facility] Juan Hernandez Emilio B [facility] 1.0.114 350.1.13.10 4.2.7.2.686 [id number] [facility] 2023-07-29 13:40:00 2023-07-29 14:40:01 Outpatient R FERNANDA [facility] [id number] [facility] 2023-07-29 13:40:00 2023-07-29 14:00:00 Office Visit [facility] [place] [facility] 1.0.114 350.1.13.10 4.2.7.2.686 [id number] [facility] 2023-07-28 15:00:00 2023-07-28 15:00:00 Outpatient R CURRYOHJOSE C [facility] [id number] [facility] 2023-07-26 00:00:00 2023-07-26 00:00:00 Patient Secure Rosette Mendez [facility] 1..114 350.1.13.10 4.2.7.2.686 [id number] [id number] [facility] 2023-07-23 00:00:00 2023-07-23 00:00:00 Orders Only Doctor Unassigned, [place] [facility] 1.0.114 350.1.13.10 4.2.7.2.686 [id number] [facility] 2023-07-21 00:00:00 2023-07-21 00:00:00 Refill Andrew Marinlie Marlene [facility] 1.84.114 350.1.13.10 4.2.7.2.686 [id number] [id number] [facility] 2023-07-14 15:30:00 2023-07-14 16:00:00 Office Visit Ministerio Ganah [facility] 1..114 350.1.13.10 4.2.7.2.686 [id number] [facility] 2023-07-14 15:30:00 2023-07-14 15:30:00 Outpatient R DOLYL ROSETTE [facility] [id number] [facility] 2023-07-14 14:00:00 2023-07-14 14:00:00 Outpatient R MINISTERIO GANAH [facility] [id number] [facility] 2023-07-13 11:00:00 2023-07-13 11:00:00 Outpatient R DOLLY, [facility] [id number] [facility] 2023-07-13 00:00:00 2023-07-13 00:00:00 Refill Carlo Mari [facility] 1.840.114 350.1.13.10 4.2.7.2.686 [id number] [facility] 2023-07-07 14:20:00 2023-07-07 15:54:59 Outpatient R JOSE C WELLINGTON [facility] [id number] [facility] 2023-07-07 14:20:00 2023-07-07 15:54:59 Office Visit Jose C Wellington [facility] 1.84.114 350.1.13.10 4.2.7.2.686 [id number] [facility] 2023-07-05 00:00:00 2023-07-05 00:00:00 Case Management Tawana Jean [facility] ELECTRONIC SCALE TESTER [facility] & CHILD [facility] 1.2.840.114 350.1.13.10 4.2.7.2.686 [id number] [facility] 2023-07-05 00:00:00 2023-07-05 00:00:00 Patient Secure Msg Jose C Wellington [facility] 1.2.840.114 350.1.13.10 4.2.7.2.686 [id number] [facility] 2023-07-05 00:00:00 2023-07-05 00:00:00 Patient Secure Msg Tawana Jean [facility] ELECTRONIC SCALE TESTER [facility] CHILD [facility] 1.2.840.114 350.1.13.10 4.2.7.2.686 [id number] [facility] 2023-07-02 00:00:00 2023-07-02 00:00:00 Telephone Tawana Jean [facility] ELECTRONIC SCALE TE[facility] CHILD [facility] 1.2.840.114 350.1.13.10 4.2.7.2.686 [id number] [facility] 2023-07-01 14:45:00 2023-07-01 15:52:34 Outpatient R TAWANA JEAN [facility] [id number] [facility] 2023-07-01 14:45:00 2023-07-01 15:52:34 Office Visit Tawana Jean [facility] ELECTRONIC SCALE TESTER [facility] & CHILD [facility] 1.2.840.114 350.1.13.10 4.2.7.2.686 [id number] 107 [id number] [facility] 2023-07-01 00:00:00 2023-07-01 00:00:00 Letter (Out) Tawana Jean [facility] ELECTRONIC SCALE [facility]NAL [facility] 1..114 350.1.13.10 4.2.7.2.686 [id number] 107 [id number] [facility] 2023-06-30 15:00:00 2023-06-30 15:00:00 Outpatient R ROSETTE GAN [facility] [id number] [facility] 2023-06-23 12:50:00 2023-06-23 14:31:22 Outpatient R JOSE C WELLINGTON [facility] [id number] [facility] 2023-06-23 12:50:00 2023-06-23 14:31:22 Office Visit Jose C Wellington [facility] CARE [facility] 1..114 350.1.13.10 4.2.7.2.686 [id number] [facility] 2023-06-23 00:00:00 2023-06-23 00:00:00 Patient Secure Msg Amish [facility] 1.0.114 350.1.13.10 4.2.7.2.686 [id number] [facility] 2023-06-23 00:00:00 2023-06-23 00:00:00 Patient Secure Msg Doctor Unassigned, [place] [facility] 1.0.114 350.1.13.10 4.2.7.2.686 [id number] [facility] 2023-06-22 08:00:00 2023-06-22 09:11:03 Outpatient UNRULY WISEMAN [facility] [id number] [facility] 2023-06-22 08:00:00 2023-06-22 09:11:03 Office Visit Juan Reece Emilio B [facility] 1.2.840.114 350.1.13.10 4.2.7.2.686 [id number] [id number] [facility] 2023-06-22 00:00:00 2023-06-22 00:00:00 Telephone Jose C Wellington [facility] 1.2840.114 350.1.13.10 4.2.7.2.686 [id number] [facility] 2023-06-21 18:13:00 2023-06-21 20:19:00 Emergency X RICK JOAQUIM [facility] [id number] [facility] 2023-06-21 18:13:00 2023-06-21 20:19:[address] [facility] 1.840.114 350.1.13.10 4.2.7.2.686 [id number] [id number] [facility] 2023-06-21 00:00:00 2023-06-21 00:00:00 Patient Secure Msg Thais Marin [facility] OFF[facility] 1.20.114 350.1.13.10 4.2.7.2.686 [id number] [id number] [facility] 2023-06-20 00:00:00 2023-06-20 00:00:00 Telephone Thais Marin [facility] OFF[facility] 1.2840.114 350.1.13.10 4.2.7.2.686 [id number] 044 [id number] [facility] 2023-06-17 00:00:00 2023-06-17 00:00:00 Patient Secure Msg Thais Marin [facility] MED[facility] OFF[facility] 1.2840.114 350.1.13.10 4.2.7.2.686 [id number] [facility] 2023-06-16 20:00:00 2023-06-16 20:36:02 Outpatient Alannah CARLO MARI [facility] [id number] [facility] 2023-06-16 20:00:00 2023-06-16 20:36:02 Urgent Care Carlo Mari Unknown, Attending [facility] 1..840.114 350.1.13.10 4.2.7.2.686 [id number] [facility] 2023-06-10 10:30:00 2023-06-10 10:30:00 Outpatient R ROMULO CHERRY STRAHIL [facility] [id number] [facility] 2023-06-03 10:00:00 2023-06-03 10:15:00 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 [facility], [facility] Romulo Cherry [facility] 1..840.114 350.1.13.10 4.2.7.2.686 [id number] [facility] 2023-06-03 10:00:00 2023-06-03 10:00:00 Outpatient R ROMULO CHERRY STRAHIL [facility] [id number] [facility] 2023-06-03 00:00:00 2023-06-03 00:00:00 Orders Only Doctor Unassigned, [place] [facility] ..840.114 350.1.13.10 4.2.7.2.686 [id number] [facility] 2023-06-01 09:00:00 2023-06-01 09:00:00 Outpatient R ROMULO CHERRY STRAHIL [facility] [id number] [facility] 2023-05-26 14:00:00 2023-05-26 14:41:13 Outpatient THAIS HALL [facility] [id number] [facility] 2023-05-26 14:00:00 2023-05-26 14:41:13 Office Visit Thais Marin [facility] 1.840.114 350.1.13.10 4.2.7.2.686 [id number] [id number] [facility] 2023-05-26 00:00:00 2023-05-26 00:00:00 Telephone Thais Marin [facility] OFF[facility] BUILD[facility] 1.840.114 350.1.13.10 4.2.7.2.686 [id number] [id number] [facility] 2023-05-21 09:00:00 2023-05-21 09:00:00 Outpatient R THAIS MARIN [facility] [id number] [facility] 2023-05-18 13:32:49 2023-05-18 23:59:00 Outpatient R CARLITO MORAN [facility] [id number] [facility] 2023-05-18 13:00:00 2023-05-18 23:59:00 [facility].114 350.1.13.10 4.2.7.2.686 [id number] [facility] 2023-05-10 14:30:00 2023-05-10 15:53:08 Outpatient R CARLITO MORAN [facility] [id number] [facility] 2023-05-10 14:30:00 2023-05-10 15:53:08 Routine Visit Clinic, [facility] 1.840.114 350.1.13.10 4.2.7.2.686 [id number] [facility] 2023-05-06 11:30:00 2023-05-06 12:05:01 Outpatient R LORENA KIRK [facility] [id number] [facility] 2023-05-06 11:30:00 2023-05-06 12:05:01 Office Visit KirkLorena [facility] MEDICAL OFFICE BUILDING 1.2.840.114 350.1.13.10 4.2.7.2.686 [id number] [id number] [facility] 2023-05-06 00:00:00 2023-05-06 00:00:00 Letter (Out) KirkLorena [facility] MEDICAL OFFICE BUILDING 1.2840.114 350.1.13.10 4.2.7.2.686 [id number] 092 [id number] [facility] 2023-05-04 00:00:00 2023-05-04 00:00:00 Patient Secure Msg Doctor Unassigned, [place] [facility] 1.840.114 350.1.13.10 4.2.7.2.686 [id number] [id number] [facility] 2023-05-03 00:00:00 2023-05-03 00:00:00 Transition of Care [facility] 1.2.84.114 350.1.13.10 4.2.7.2.686 [id number] [facility] 2023-04-26 05:34:00 2023-05-01 17:08:00 Inpatient LORENA ALEX [facility] ELOY [id number] [facility] 2023-04-26 05:34:00 2023-05-01 17:08:00 Hospital Encounter Yolanda Baca Otto W Wu, Laura J [facility] 1.84.114 350.1.13.10 4.2.7.2.686 [id number] [id number] [facility] 2023-04-23 16:00:00 2023-04-23 17:14:36 Outpatient THAIS HALL [facility] [id number] [facility] 2023-04-23 16:00:00 2023-04-23 17:14:36 Office Visit TaniaAndrewThais A [facility] MEDICAL OFFICE BUILDING 1.2840.114 350.1.13.10 4.2.7.2.686 [id number] [facility] 2023-04-14 00:00:00 2023-04-14 00:00:00 Patient Secure Msg Umaña-Orti Jose webb [facility] 1.2840.114 350.1.13.10 4.2.7.2.686 [id number] [id number] [facility] 2023-04-14 00:00:00 2023-04-14 00:00:00 Patient Secure Msg Doctor Unassigned, [place] [facility] 1.2840.114 350.1.13.10 4.2.7.2.686 [id number] 044 [id number] [facility] 2023-04-12 00:00:00 2023-04-12 00:00:00 Patient Secure Msg Doctor Unassigned, [place] [facility] 1.2840.114 350.1.13.10 4.2.7.2.686 [id number] [id number] [facility] 2023-04-09 10:30:00 2023-04-09 10:45:00 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 Pcp-Millie Park [facility] 1.2840.114 350.1.13.10 4.2.7.2.686 [id number] [facility] 2023-04-09 08:30:00 2023-04-09 10:17:59 Outpatient R MILLIE BRIDGES [facility] [id number] [facility] 2023-04-09 08:30:00 2023-04-09 10:17:59 Office Visit Pavan webb, Jose Bridges, Millie Lugo [facility] 1.2.840.114 350.1.13.10 4.2.7.2.686 [id number] [id number] [facility] 2023-04-09 00:00:00 2023-04-09 00:00:00 Letter (Out) Jose Cardona [facility] 1.2.840.114 350.1.13.10 4.2.7.2.686 [id number] 086 [id number] [facility] 2023-04-08 00:00:00 2023-04-08 00:00:00 Telephone Thais Marin [facility] MEDICAL OFFICE BUILDING 1.2.840.114 350.1.13.10 4.2.7.2.686 [id number] [facility] 2023-04-08 00:00:00 2023-04-08 00:00:00 Patient Secure Msg Doctor Unassigned, [place] [facility] MEDICAL OFFICE BUILDING 1.2.840.114 350.1.13.10 4.2.7.2.686 [id number] 044 [id number] [facility] 2023-04-07 14:15:00 2023-04-07 15:42:31 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 Lab, Ang - Db Thais Marin [facility] MEDICAL OFFICE BUILDING 1.2840.114 350.1.13.10 4.2.7.2.686 [id number] [facility] 2023-04-07 13:30:00 2023-04-07 14:10:07 Outpatient R THAIS MARIN [facility] [id number] [facility] 2023-04-07 13:30:00 2023-04-07 14:10:07 Office Visit Thais Marin [facility] 1.2.840.114 350.1.13.10 4.2.7.2.686 [id number] [id number] [facility] 2023-04-05 13:15:00 2023-04-05 15:10:25 Outpatient R YOLANDA BACA [facility] [id number] [facility] 2023-04-05 13:15:00 2023-04-05 15:10:25 Office Visit Pgy2 DetroitYolanda [facility] 1..840.114 350.1.13.10 4.2.7.2.686 [id number] [facility] 2023-03-23 13:00:00 2023-03-23 13:00:00 Outpatient R [facility] [id number] [facility] 2023-03-23 00:00:00 2023-03-23 00:00:[address] [facility] 1..840.114 350.1.13.10 4.2.7.2.686 [id number] [facility] 2023-03-12 00:00:00 2023-03-12 00:00:00 Telephone Tawana Jean [facility] ELECTRONIC SCALE [facility] MATERNAL & [facility]ILD [facility] 1..840.114 350.1.13.10 4.2.7.2.686 [id number] 107 [id number] [facility] 2023-02-05 09:00:00 2023-02-05 09:00:00 Outpatient R TAWANA JEAN [facility] [id number] [facility] 2023-02-04 11:00:00 2023-02-04 11:00:00 Outpatient R KEVIN PELLETIER CHERYAL [facility] [id number] [facility] 2023-02-01 10:15:00 2023-02-01 14:26:48 Outpatient R YOLANDA BACA [facility] [id number] [facility] 2023-02-01 10:15:00 2023-02-01 14:26:48 Telemedici ne Visit Trimester, [facility] Res-1st Yolanda Baca [facility] 1.84.114 350.1.13.10 4.2.7.2.686 [id number] [facility] 2023-01-26 16:00:00 2023-01-26 16:00:00 Outpatient R KEVIN PELLETIER CHERYAL [facility] [id number] [facility] 2023-01-26 00:00:00 2023-01-26 00:00:00 Patient Secure Msg Tawana Jean [facility] ELECTRONIC SCALE [facility] MATERNAL & [facility]ILD [facility] 1.84.114 350.1.13.10 4.2.7.2.686 [id number] [facility] 2023-01-25 20:52:00 2023-01-25 23:28:00 Emergency X MARIANN JOHN [facility] ERT [id number] [facility] 2023-01-25 20:52:00 2023-01-25 23:28:[address] [facility] 1..114 350.1.13.10 4.2.7.2.686 [id number] 084 [id number] [facility] 2023-01-18 14:39:00 2023-01-18 16:33:00 Emergency X DEB BENAVIDEZ [facility] ERT [id number] [facility] 2023-01-18 14:39:00 2023-01-18 16:33:[address] [facility] .840.114 350.1.13.10 4.2.7.2.686 [id number] [id number] [facility] 2023-01-18 09:30:00 2023-01-18 11:22:09 Outpatient R YOLANDA BACA [facility] [id number] [facility] 2023-01-18 09:30:00 2023-01-18 11:22:09 Routine Visit Trimester, [facility] Res-1st Yolanda Baca [facility] 1.0.114 350.1.13.10 4.2.7.2.686 [id number] [facility] 2023-01-14 00:00:00 2023-01-14 00:00:00 Patient Secure Msg Ginette [facility] 1..114 350.1.13.10 4.2.7.2.686 [id number] [facility] 2023-01-08 10:30:00 2023-01-09 17:30:00 Outpatient X [facility] [id number] [facility] 2023-01-08 10:30:00 2023-01-09 17:30:00 Emergency Ebtincarmen, [facility] 1..114 350.1.13.10 4.2.7.2.686 [id number] 083 [id number] [facility] 2023-01-08 20:03:18 2023-01-08 20:03:18 Anesthesia Event Ese Puga Fernando [facility] 1..114 350.1.13.10 4.2.7.2.686 [id number] 084 [id number] [facility] 2023-01-08 17:45:00 2023-01-08 19:13:00 [facility] [place] 1.2.840.114 350.1.13.10 4.2.7.2.686 [id number] [facility] 2023-01-08 10:30:00 2023-01-08 10:30:00 Outpatient R PETE OWENS [facility] [id number] [facility] 2023-01-04 12:21:39 2023-01-04 23:59:[address] [facility] 1.2840.114 350.1.13.10 4.2.7.2.686 [id number] [facility] 2023-01-04 08:30:00 2023-01-04 11:08:47 Outpatient P [facility] [id number] [facility] 2023-01-04 08:30:00 2023-01-04 11:08:47 Routine Visit Trimester, [facility] Res-1st [facility] 1.2840.114 350.1.13.10 4.2.7.2.686 [id number] [facility] 2023-01-04 10:45:00 2023-01-04 11:00:00 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 [facility] 1.2840.114 350.1.13.10 4.2.7.2.686 [id number] [facility] 2023-01-01 22:42:00 2023-01-02 01:04:00 Emergency X MARIANN JOHN [facility] ERT [id number] [facility] 2023-01-01 22:42:00 2023-01-02 01:04:00 Emergency Mariann John [facility] 1.2.840.114 350.1.13.10 4.2.7.2.686 [id number] [facility] 2023-01-01 16:00:00 2023-01-01 16:47:46 Outpatient R MAMIE WILSON [facility] [id number] [facility] 2023-01-01 16:00:00 2023-01-01 16:47:46 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 [employer] [facility]ER[facility] & [facility] 1.2.840.114 350.1.13.10 4.2.7.2.686 [id number] [facility] 2023-01-01 15:30:00 2023-01-01 16:00:00 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 1.2.840.114 350.1.13.10 4.2.7.2.686 [id number] [facility] 2023-01-01 00:00:00 2023-01-01 00:00:00 Patient Secure Msg Doctor Unassigned, [place] [facility] 1.2840.114 350.1.13.10 4.2.7.2.686 [id number] [facility] 2022-12-21 10:30:00 2022-12-21 11:40:15 Outpatient R TAWANA JEAN [facility] [id number] [facility] 2022-12-21 10:30:00 2022-12-21 11:40:15 Routine Visit Tawana Jean [facility] [employer] [facility] MATERNAL & CHILD [facility] 1.840.114 350.1.13.10 4.2.7.2.686 [id number] [facility] 2022-12-21 10:30:00 2022-12-21 10:30:00 Outpatient R TAWANA JEAN [facility] [id number] [facility] 2022-12-21 00:00:00 2022-12-21 00:00:00 Orders Only Doctor Unassigned, [place] [facility] 1.840.114 350.1.13.10 4.2.7.2.686 [id number] [facility] 2022-12-18 09:30:00 2022-12-18 09:30:00 Outpatient R PETE OWENS [facility] [id number] [facility] 2022-12-17 04:15:00 2022-12-17 09:43:00 Emergency EM ArunaSaad [facility] [id number] [facility] 2022-12-17 00:00:00 2022-12-17 00:00:00 Patient Secure Msg Pete Owens [facility] [employer] [facility] & CHILD [facility] 1.840.114 350.1.13.10 4.2.7.2.686 [id number] [facility] 2022-12-14 00:00:00 2022-12-14 00:00:00 Telephone Pete Owens [facility] [employer] [facility] & CHILD [facility] 1.840.114 350.1.13.10 4.2.7.2.686 [id number] [facility] 2022-12-12 00:00:00 2022-12-12 00:00:00 Case Management Tawana Jean [facility] [employer] [facility] & CHILD [facility] 1.2840.114 350.1.13.10 4.2.7.2.686 [id number] [facility] 2022-12-12 00:00:00 2022-12-12 00:00:00 Patient Secure Msg Pete Owens [facility] [employer] [facility] [facility] 1.840.114 350.1.13.10 4.2.7.2.686 [id number] 107 [id number] [facility] 2022-12-11 10:00:00 2022-12-11 12:03:06 Outpatient R PETE OWENS [facility] [id number] [facility] 2022-12-11 10:00:00 2022-12-11 12:03:06 Initial Visit Pete Owens [facility] ELECTRONIC SCALE [facility] MATERNAL & CHILD [facility] 1.0.114 350.1.13.10 4.2.7.2.686 [id number] 107 [id number] [facility] 2022-12-09 10:45:00 2022-12-09 12:04:26 Outpatient R TAWANA JEAN [facility] [id number] [facility] 2022-12-09 10:45:00 2022-12-09 12:04:26 Office Visit Tawana Jean [facility] ELECTRONIC SCALE TESTER [facility] & CHILD [facility] 1..114 350.1.13.10 4.2.7.2.686 [id number] 107 [id number] [facility] 2022-12-09 00:00:00 2022-12-09 00:00:00 Orders Only Doctor Unassigned, [place] [facility] 1..114 350.1.13.10 4.2.7.2.686 [id number] [facility] 2022-12-07 00:00:00 2022-12-07 00:00:00 Patient Secure Msg Tawana Jean [facility] ELECTRONIC SCALE TESTER [facility] & CHILD [facility] 1..114 350.1.13.10 4.2.7.2.686 [id number] 107 [id number] [facility] 2022-12-03 00:00:00 2022-12-03 00:00:00 Telephone Pcp, Patient [facility] Not Have A [facility] 1..114 350.1.13.10 4.2.7.2.686 [id number] [facility] 2022-11-27 08:45:00 2022-11-27 08:45:00 Outpatient R PETE OWENS [facility] [id number] [facility] 2022-11-26 13:45:00 2022-11-26 13:45:00 Outpatient R TAWANA JEAN [facility] [id number] [facility] 2022-11-26 10:45:00 2022-11-26 10:45:00 Outpatient R TAWANA JEAN [facility] [id number] [facility] 2022-11-12 15:00:00 2022-11-12 15:39:24 Outpatient R TAWANA JEAN [facility] [id number] [facility] 2022-11-12 15:00:00 2022-11-12 15:39:24 Office Visit Tawana Jean [facility] ELECTRONIC SCALE [facility] MATERNAL & CHILD [facility] .840.114 350.1.13.10 4.2.7.2.686 [id number] 107 [id number] [facility] 2022-11-11 13:00:00 2022-11-11 13:00:00 Outpatient R [facility] [id number] [facility] 2022-11-11 00:00:00 2022-11-11 00:00:00 Telephone [facility] .840.114 350.1.13.10 4.2.7.2.686 [id number] 113 [id number] [facility] 2022-10-28 00:00:00 2022-10-28 00:00:00 Telephone [facility] .840.114 350.1.13.10 4.2.7.2.686 [id number] 113 [id number] [facility] 2022-10-22 15:00:00 2022-10-22 15:40:25 Outpatient R TAWANA JEAN [facility] [id number] [facility] 2022-10-22 15:00:00 2022-10-22 15:40:25 Routine Visit Tawana Jean [facility] ELECTRONIC SCALE [facility] MATERNAL & [facility] 1.840.114 350.1.13.10 4.2.7.2.686 [id number] 107 [id number] [facility] 2022-10-22 00:00:00 2022-10-22 00:00:00 Orders Only Doctor Unassigned, [place] [facility] 1.840.114 350.1.13.10 4.2.7.2.686 [id number] [facility] 2022-10-20 10:45:00 2022-10-20 10:45:00 Outpatient TAWANA LLANOS [facility] [id number] [facility] 2022-10-13 08:45:00 2022-10-13 08:45:00 Outpatient R TAWANA JEAN [facility] [id number] [facility] 2022-09-29 09:15:00 2022-09-29 09:15:00 Outpatient SANDHYA ASKEW KARREN [facility] [id number] [facility] 2022-09-29 00:00:00 2022-09-29 00:00:00 Patient Secure Msg [facility]ir[facility] .840.114 350.1.13.10 4.2.7.2.686 [id number] [facility] 2022-09-26 17:36:00 2022-09-28 13:20:00 Outpatient X JOANNE MELISSA [facility] OBF [id number] [facility] 2022-09-26 17:36:00 2022-09-28 13:20:00 Emergency Drever, Winifred G Belén, Juan Padilla [facility] 1.2.840.114 350.1.13.10 4.2.7.2.686 [id number] [facility] 2022-09-28 13:15:00 2022-09-28 13:15:00 Outpatient R TAWANA JEAN [facility] [id number] [facility] 2022-09-28 00:00:00 2022-09-28 00:00:00 Patient Secure Msg Tawana Jean [facility] ELECTRONIC SCALE [facility] MATERNAL & CHILD [facility] 1.2.840.114 350.1.13.10 4.2.7.2.686 [id number] 107 [id number] [facility] 2022-09-27 19:45:00 2022-09-27 21:10:00 Surgery Gillian Wagner [facility] [place] 1.2840.114 350.1.13.10 4.2.7.2.686 [id number] [facility] 2022-09-23 22:37:00 2022-09-24 02:17:00 Emergency X LEYDI CASTRO [facility] ERT [id number] [facility] 2022-09-23 22:37:00 2022-09-24 02:17:[address]di Castro [facility] 1.2840.114 350.1.13.10 4.2.7.2.686 [id number] [id number] [facility] 2022-09-24 00:00:00 2022-09-24 00:00:00 Case Management Tawana Jean [facility] ELECTRONIC SCALE TESTER [facility] & CHILD [facility] 1.2.840.114 350.1.13.10 4.2.7.2.686 [id number] 107 [id number] [facility] 2022-09-24 00:00:00 2022-09-24 00:00:00 Patient Secure Msg Tawana Jean [facility] ELECTRONIC SCALE TESTER [facility] & CHILD [facility] 1..840.114 350.1.13.10 4.2.7.2.686 [id number] 107 [id number] [facility] 2022-09-23 16:00:00 2022-09-23 16:48:21 Outpatient R TAWANA JEAN [facility] [id number] [facility] 2022-09-23 16:00:00 2022-09-23 16:48:21 Routine Visit RoxannTawana rosario [facility] 1..840.114 350.1.13.10 4.2.7.2.686 [id number] 107 [id number] [facility] 2022-09-23 12:45:00 2022-09-23 12:45:00 Outpatient R TAWANA JEAN [facility] [id number] [facility] 2022-09-17 16:00:00 2022-09-17 16:00:00 Outpatient R [facility] [id number] [facility] 2022-09-10 15:45:00 2022-09-10 15:45:00 Outpatient R TAWANA JEAN [facility] [id number] [facility] 2022-09-08 13:45:00 2022-09-08 13:45:00 Outpatient R TAWANA JEAN [facility] [id number] [facility] 2022-08-28 00:00:00 2022-08-28 00:00:00 Patient Secure Tawana Ortiz [facility] 1..840.114 350.1.13.10 4.2.7.2.686 [id number] 107 [id number] [facility] 2022-08-27 00:00:00 2022-08-27 00:00:00 Patient Secure Tawana Ortiz [facility] ELECTRONIC SCALE TESTER [facility] & CHILD [facility] 1.2.840.114 350.1.13.10 4.2.7.2.686 [id number] 107 [id number] [facility] 2022-08-13 00:00:00 2022-08-13 00:00:00 Case Management Eleonoramarshall Tawana Rosario [facility] ELECTRONIC SCALE TESTER [facility] CHILD [facility] 1.2.840.114 350.1.13.10 4.2.7.2.686 [id number] 107 [id number] [facility] 2022-08-13 00:00:00 2022-08-13 00:00:00 Patient Secure Tawana Ortiz [facility] ELECTRONIC SCALE TESTER [facility] CHILD [facility] 1.2.840.114 350.1.13.10 4.2.7.2.686 [id number] 107 [id number] [facility] 2022-08-12 07:45:00 2022-08-12 08:09:39 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 Lab, Tawana Saxena [facility] 1.2.840.114 350.1.13.10 4.2.7.2.686 [id number] 107 [id number] [facility] 2022-08-12 07:45:00 2022-08-12 07:45:00 Outpatient R TAWANA JEAN [facility] [id number] [facility] 2022-08-11 14:30:00 2022-08-11 16:26:19 Outpatient R TAWANA JEAN [facility] [id number] [facility] 2022-08-11 14:30:00 2022-08-11 16:26:19 Initial Visit Provider, Tawana Metcalf [facility] ELECTRONIC SCALE TESTER [facility] 1.2.84.114 350.1.13.10 4.2.7.2.686 [id number] 107 [id number] [facility] 2022-08-11 00:00:00 2022-08-11 00:00:00 Orders Only Doctor Unassigned, [place] [facility] 1.84.114 350.1.13.10 4.2.7.2.686 [id number] [facility] 2022-07-14 08:15:00 2022-07-14 08:15:00 Outpatient R TAWANA JEAN [facility] [id number] [facility] 2022-05-23 10:30:00 2022-05-23 10:30:00 Outpatient R [facility] [id number] [facility] 2022-05-23 10:30:00 2022-05-23 10:30:00 Outpatient R CM CERVANTES [facility] [id number] [facility] 2022-05-01 08:00:00 2022-05-01 08:00:00 Outpatient R TAWANA JEAN [facility] [id number] [facility] 2022-04-30 07:45:00 2022-04-30 07:45:00 Outpatient R JIGNESH WILLOUGHBY [facility] [id number] [facility] 2022-04-27 02:06:00 2022-04-27 02:53:00 Emergency X WINIFRED JAMES [facility] ERT [id number] [facility] 2022-04-27 02:06:00 2022-04-27 02:53:00 Emergency Winifrde James [facility] .840.114 350.1.13.10 4.2.7.2.686 [id number] [facility] 2022-04-27 00:00:00 2022-04-27 00:00:00 Orders Only Doctor Unassigned, [place] [facility] 1.114 350.1.13.10 4.2.7.2.686 [id number] [facility] 2022-04-18 10:45:00 2022-04-18 11:50:36 Outpatient SULEIMAN SIMS [facility] [id number] [facility] 2022-04-18 10:45:00 2022-04-18 11:50:36 Office Visit Provider, Suleiman Hickman [facility] ELECTRONIC SCALE TESTER [facility] & CHILD [facility] 1..114 350.1.13.10 4.2.7.2.686 [id number] 107 [id number] [facility] 2022-04-17 00:00:00 2022-04-17 00:00:00 Telephone Pete Owens [facility] ELECTRONIC SCALE TESTER [facility] & CHILD [facility] .84.114 350.1.13.10 4.2.7.2.686 [id number] 107 [id number] [facility] 2022-04-16 12:45:00 2022-04-16 12:45:00 Outpatient TAWANA LLANOS [facility] [id number] [facility] 2022-04-03 00:00:00 2022-04-03 00:00:00 Orders Only Doctor Unassigned, [place] [facility] .114 350.1.13.10 4.2.7.2.686 [id number] [facility] 2022-04-02 12:45:00 2022-04-02 14:18:13 Outpatient LOUISE LANGSTON [facility] [id number] [facility] 2022-04-02 12:45:00 2022-04-02 14:18:13 Office Visit Provider, Jignesh Sotomayor Kathryn C [facility] 1.2840.114 350.1.13.10 4.2.7.2.686 [id number] 107 [id number] [facility] 2022-04-01 09:00:00 2022-04-01 09:00:00 Outpatient R WILLOUGHBYJIGNESH [facility] [id number] [facility] 2022-01-21 13:15:00 2022-01-21 13:15:00 Outpatient R PETE OWENS [facility] [id number] [facility] 2022-01-16 00:00:00 2022-01-16 00:00:00 Refill Jamie Wall [facility] ELECTRONIC SCALE TESTER [facility] & CHILD [facility] 1.0.114 350.1.13.10 4.2.7.2.686 [id number] 107 [id number] [facility] 2022-01-15 00:00:00 2022-01-15 00:00:00 Patient Secure Msg Doctor Unassigned, [place] [facility] 1.0.114 350.1.13.10 4.2.7.2.686 [id number] [facility] 2022-01-14 00:00:00 2022-01-14 00:00:00 Outpatient ARMINDA_DAVIS CISNEROS [facility] [id number] [facility] 2022-01-01 00:00:00 2022-01-01 00:00:00 Patient Secure Msg Case Jignesh Jaffe [facility] ELECTRONIC SCALE TE[facility] MATERNAL & CHILD [facility] 1..114 350.1.13.10 4.2.7.2.686 [id number] 107 [id number] [facility] 2021-12-31 00:00:00 2021-12-31 00:00:00 Jamie Dinh [facility] ELECTRONIC SCALE TESTER [facility] & CHILD [facility] 1.0.114 350.1.13.10 4.2.7.2.686 [id number] 107 [id number] [facility] 2021-12-31 00:00:00 2021-12-31 00:00:00 Telephone Jignesh Willoughby [facility] ELECTRONIC SCALE TESTER [facility] CHILD [facility] 1..840.114 350.1.13.10 4.2.7.2.686 [id number] 107 [id number] [facility] 2021-12-30 14:30:00 2021-12-30 16:19:20 Office Visit Provider, Jamie Friedman [facility] ELECTRONIC SCALE TESTER [facility] CHILD [facility] ..840.114 350.1.13.10 4.2.7.2.686 [id number] 107 [id number] [facility] 2021-12-30 14:30:00 2021-12-30 16:19:20 Outpatient JAMIE GAYTAN EMILY [facility] [id number] [facility] 2021-12-30 14:30:00 2021-12-30 14:30:00 Outpatient JAMIE GAYTAN EMILY [facility] [id number] [facility] 2021-12-18 09:45:00 2021-12-18 09:45:00 Outpatient JIGNESH MUNGUIA [facility] [id number] [facility] 2021-12-03 13:00:00 2021-12-03 13:00:00 Outpatient JIGNESH MUNGUIA [facility] [id number] [facility] 2021-12-02 00:00:00 2021-12-02 00:00:00 Patient Secure Msdereck Jignesh Willoughby [facility] ELECTRONIC SCALE TESTER [facility] CHILD [facility] 1..840.114 350.1.13.10 4.2.7.2.686 [id number] 107 [id number] [facility] 2021-12-02 00:00:00 2021-12-02 00:00:00 Telephone Case Jignesh Jaffe [facility] ELECTRONIC SCALE TE[facility] MATERNAL & CHILD [facility] 1..840.114 350.1.13.10 4.2.7.2.686 [id number] 107 [id number] [facility] 2021-12-01 13:30:00 2021-12-01 13:30:00 Outpatient R CASE JIGNESH [facility] [id number] [facility] 2021-12-01 13:30:00 2021-12-01 13:30:00 Outpatient R CASE JIGNESH [facility] [id number] [facility] 2021-11-13 00:00:00 2021-11-13 00:00:00 Telephone WilloughbyJignesh [facility] ELECTRONIC SCALE TESTER [facility] MATERNAL & CHILD [facility] 1.840.114 350.1.13.10 4.2.7.2.686 [id number] 107 [id number] [facility] 2021-11-11 14:45:00 2021-11-11 16:08:19 Outpatient R WILLOUGHBY, JIGNESH [facility] [id number] [facility] 2021-11-11 14:45:00 2021-11-11 16:08:19 Office Visit WilloughbyJignesh [facility] ELECTRONIC SCALE TESTER [facility] MATERNAL & CHILD [facility] 1.840.114 350.1.13.10 4.2.7.2.686 [id number] 107 [id number] [facility] 2021-11-11 00:00:00 2021-11-11 00:00:00 Orders Only Doctor Unassigned, [place] [facility] 1.840.114 350.1.13.10 4.2.7.2.686 [id number] [facility] 2021-04-07 00:00:00 2021-04-07 00:00:00 Patient Secure Msg Jignesh Willoughby [facility] ELECTRONIC SCALE TESTER [facility] CHILD [facility] 1.2.840.114 350.1.13.10 4.2.7.2.686 [id number] 107 [id number] [facility] 2021-03-21 14:45:00 2021-03-21 14:45:00 Outpatient PETE CONNOR [facility] [id number] [facility] 2021-03-20 00:00:00 2021-03-20 00:00:00 Telephone Pete Owens [facility] ELECTRONIC SCALE TESTER [facility] MATERNAL & CHILD [facility] 1.2840.114 350.1.13.10 4.2.7.2.686 [id number] 107 [id number] [facility] 2021-03-19 14:45:00 2021-03-19 14:45:00 Outpatient JAMIE HOPPER [facility] [id number] [facility] 2021-03-18 15:15:00 2021-03-18 15:15:00 Outpatient JAMIE HOPPER [facility] [id number] [facility] 2021-03-16 22:39:00 2021-03-17 01:20:00 Emergency SalvatoreSam ribeiro [facility] 1.2.840.114 350.1.13.10 4.2.7.2.686 [id number] [facility] 2021-02-20 00:00:00 2021-02-20 00:00:00 Telephone Lara Atkinson [facility] 1.2.840.114 350.1.13.10 4.2.7.2.686 [id number] [facility] 2021-02-19 02:37:00 2021-02-19 03:44:00 Emergency Joanne Melissa [facility] 1.2.840.114 350.1.13.10 4.2.7.2.686 [id number] [facility] 2020-09-10 00:00:00 2020-09-10 00:00:00 Patient Outreach Juan Marshall [facility] 1.2.840.114 350.1.13.10 4.2.7.2.686 [id number] 2020-09-10 00:00:00 2020-09-10 00:00:00 Patient Outreach Juan Marshall [facility] 1.2.840.114 350.1.13.10 4.2.7.2.686 [id number] [facility] 2020-08-27 10:30:00 2020-08-27 10:30:00 Outpatient JIGNESH MUNGUIA [facility] [id number] [facility] 2020-08-26 13:30:00 2020-08-26 13:30:00 Outpatient R [facility] [id number] [facility] 2020-07-11 13:15:00 2020-07-11 13:15:00 Outpatient JIGNESH MUNGUIA [facility] [id number] [facility] 2020-06-27 15:21:42 2020-06-27 16:19:38 Office Visit Jignesh Willoughby [facility] ELECTRONIC SCALE TE[facility] MATERNAL & CHILD [facility] 1.2.840.114 350.1.13.10 4.2.7.2.686 [id number] 2020-06-27 15:21:42 2020-06-27 16:19:38 Office Visit Jignesh Willoughby [facility] ELECTRONIC SCALE TE[facility] MATERNAL & CHILD [facility] 1.2.840.114 350.1.13.10 4.2.7.2.686 [id number] [facility] 2020-06-27 15:30:00 2020-06-27 15:30:00 Outpatient JIGNESH MUNGUIA [facility] [id number] [facility] 2020-06-05 15:15:00 2020-06-05 15:15:00 Outpatient R JIGNESH WILLOUGHBY [facility] [id number] [facility] 2020-03-29 00:00:00 2020-03-29 00:00:00 Patient Secure Msg Doctor Unassigned, [place] [facility] 1.2.840.114 350.1.13.10 4.2.7.2.686 [id number] [facility] 2020-03-27 19:22:00 2020-03-28 00:39:00 Emergency Salvatore Sam Downing [facility] 1.2.840.114 350.1.13.10 4.2.7.2.686 [id number] [facility] 2019-12-05 01:22:11 2019-12-05 03:48:00 Emergency Radha Hawkins [facility] 1.2.840.114 350.1.13.10 4.2.7.2.686 [id number] [facility] 2019-12-05 01:22:11 2019-12-05 03:48:00 Emergency RADHA AZAR [facility] ERT [id number] [facility] 2019-11-15 19:21:57 2019-11-16 00:00:00 Emergency Sam Chase [facility] 1.2.840.114 350.1.13.10 4.2.7.2.686 [id number] [facility] 2019-11-15 19:21:57 2019-11-16 00:00:00 Emergency Genet Sam CHASE [facility] ERT [id number] [facility] 2019-10-19 04:35:17 2019-10-19 06:17:00 Emergency Luisa Ma Alannah [facility] 1.2.840.114 350.1.13.10 4.2.7.2.686 [id number] [facility] 2019-10-19 04:35:17 2019-10-19 06:17:00 Emergency X LUISA MA [facility] ERT [id number] [facility] 2019-08-31 03:53:07 2019-08-31 05:03:00 Emergency Jessica Bob [facility] 1.2.840.114 350.1.13.10 4.2.7.2.686 [id number] [facility] 2019-08-31 03:53:07 2019-08-31 05:03:00 Emergency X JESSICA BOB [facility] ERT [id number] [facility] 2019-06-09 16:17:18 2019-06-09 19:21:00 Emergency X MANAN PÉREZ III [facility] ERT [id number] [facility] 2019-01-29 15:09:14 2019-01-29 18:22:00 Emergency Manan Pérez [facility] [id number] [facility] 2019-01-29 00:00:00 2019-01-29 00:00:00 Orders Only Doctor Unassigned, [facility] [id number] [facility] Results Test Description Test Time Test Comments Results Resul t Comments Source ENDOSCOPY PROCEDURE DOCUMENTATION 2024-04-22 0 14:02:26 Ordered by an unspecified provider. [facility] XR KUB 2024-04-22 0 00:52:53 EXAM: XR KUB HISTORY: 28 years-old Female; abd pain post colonoscopy Upright. TECHNIQUE: Frontal views of the abdomen and pelvis COMPARISON: CT abdomen pelvis 01/25/2023, CT [facility] [id number] 17:32:00* Test Item Value Reference Range Interpretation Comme nts POCT PREG (test code = 1605) Negative On board controls acceptable with C Line (test code = 3574) Yes POCT PREG LOT # (test code = 3575) POCT PREG TEST DATE ( test code = 3576) Lab Interpretation (test cod e = 66265-0) Normal [facility] MOLECULAR [id number] 21:52:51* Test Item Value Reference Range Interpretation Comme nts POCT Molecular Strep (test c ode = 95358-0) Negative Negative Lab Interpretation (test cod e = 74415-6) Normal [facility] SARS-COV-2 ANTIGEN (BINAX NOW)2024-02-17 21:42:00* Test Item Value Reference Range Interpretation Comme nts POCT SARS-COV-2 ANTIGEN (test code = 60073-6) Not Detected Not Detected, See Comment On board controls acceptable with C Line (test code = 3574) Yes Lab Interpretation (test code = 84954-8) Normal [facility] [id number] 14:17:00* Test Item Value Reference Range Interpretation Comme nts POCT PREG (test code = 1605) Negative On board controls acceptable with C Line (test code = 3574) Yes POCT PREG LOT # (test code = 3575) POCT PREG TEST DATE ( test code = 3576) [facility]/[id number] 18:24:24 [facility]dered by an unspecified provider[facility]/[id number] 18:24:24Ordered by an unspecified provider.[facility]/[id number] 18:24:24Ordered by an unspecified provider.[facility] Test 2023-08-20 19:56:00* Test Item Value Reference Range Interpretation Comme nts POCT PREG (test code = 1605) Negative On board controls acceptable with C Line (test code = 3574) Yes POCT PREG LOT # (test code = 3575) POCT PREG TEST DATE ( test code = 3576) [facility] [id number] 19:56:00* Test Item Value Reference Range Interpretation Comme nts POCT PREG (test code = 1605) Negative On board controls acceptable with C Line (test code = 3574) Yes POCT PREG LOT # (test code = 3575) POCT PREG TEST DATE ( test code = 3576) [facility] BETA HCG [id number] 22:07:50* Test Item Value Reference Range Interpretation Comme nts BETA HCG (test code = 8960426440) 7.37 See_Comment [Automated MicroTranspondera ge] The system which generated this result transmitted reference range: Non- female and male patients: <5 mIU/mL. The reference range was not used to interpret this result as normal/abnormal. MARCELINO (test code = MARCELINO) Gestational Age ?Range (mIU/mL) 1-10 ?Weeks ?[id number] Weeks ?83855-54801340-82 Weeks ?0194-27516305-01 Weeks ?4341-657695 Biotin has been reported to cause a negative bias, interpret results relative to patient's use of biotin. [facility]. METABOLIC PANEL (48758)2023-08-13 21:50:11* Test Item Value Reference Range Interpretation Comme nts NA (test code = 9724565135) 139 mmol/L 135-145 K (test code = 1454587499) 4.0 mmol/L 3.5-5.0 CL (test code = 2621831412) 108 mmol/L 98-108 CO2 TOTAL (test code = 4988073794) 25 mmol/L 23-31 AGAP (test code = 5585790724) 6 2-16 BUN (test code = 6097932115) 11 mg/dL 7-23 GLUCOSE (test code = 2169205513) 93 mg/dL 70-110 CREATININE (test code = 2160-0) 0.61 mg/dL 0.50-1.04 TOTAL BILI (test code = 3618203248) 0.5 mg/dL 0.1-1.1 CALCIUM (test code = 6056136083) 8.7 mg/dL 8.6-10.6 T PROTEIN (test code = 9661162282) 8.1 g/dL 6.3-8.2 ALBUMIN (test code = 9741768678) 4.1 g/dL 3.5-5.0 ALK PHOS (test code = 2177974385) 71 U/L 34-122 ALTv (test code = 1742-6) 18 U/L 5-35 AST(SGOT) (test code = 5013354728) 28 U/L 13-40 eGFR (test code = 23378-8) 124.3 mL/min/1.73m2 CKD-EPI eGFR (20 21). Assuming creatinine has been stable day-to-day for at least three months, the eGFR indicates Category G1 (>= 90 mL/min/1.73 m2) [facility] WITH [id number] 21:38:26* Test Item Value Reference Range Interpretation [...] g/dL 31.6-35.1 L RDW-SD (test code = 17940-6) 49.0 fL 39.0-49.9 RDW-CV (test code = 788-0) 16.7 % 12.0-15.5 H PLT (test code = 777-3) 416 166-358 H MPV (test code = 33988-9) 10.0 fL 9.5-12.9 NRBC/100 WBC (test code = 5379598716) 0.0 0.0-10.0 NRBC x10^3 (test code = 6487066152) See_Comment [Automated messa ge] The system which generated this result transmitted reference range: 10*3/?L. The reference range was not used to interpret this result as normal/abnormal. GRAN MAT (NEUT) % (test code = 770-8) 62.4 % IMM GRAN % (test code = 0744712299) 0.20 % LYMPH % (test code = 736-9) 27.3 % MONO % (test code = 5905-5) 8.1 % EOS % (test code = 713-8) 1.1 % BASO % (test code = 706-2) 0.9 % GRAN MAT x10^3(ANC) (test code = 5927530134) 3.54 10*3/uL 1.88-7.09 IMM GRAN x10^3 (test code = 6240327154) 0.00-0.06 LYMPH x10^3 (test code = 731-0) 1.55 10*3/uL 1.32-3.29 MONO x10^3 (test code = 742-7) 0.46 10*3/uL 0.33-0.92 EOS x10^3 (test code = 711-2) 0.06 10*3/uL 0.03-0.39 BASO x10^3 (test code = 704-7) 0.05 10*3/uL 0.01-0.07 Lab Interpretation (test code = 48785-0) [facility]normal [facility] Screen - ONCE [id number] 21:33:00 * Test Item Value Reference Range Interpretation Comme nts ABO & RH (test code = 20) A Positive IAT (test code = 1185) Negative [facility]PO[facility] URINALYSIS W SPECIFIC [id number] 21:39:00* Test Item Value Reference Range Interpretation [...] [facility] W SPECIFIC [id number] 21:39:00* Test Item Value Reference Range Interpretation [...] [facility] [id number] 20:00:41* Test Item Value Reference Range Interpretation Comme nts Case Report (test code = 0109348614) Surgical Pathology ?Case: [id number] ? Authorizing Provider: ?Yolanda Baca MD ? Collected: ? 04/26/2023 0816 ?Ordering Location: ? ? [facility] OR ? Received: ?04/26/2023 1015 ? Department ? Pathologist: ? Hearn, Olga, MD ?Specimen: ? ?ENDOMETRIUM, ENDOMETRIAL CURETTINGS ? Final Diagnosis (test code = 4701697068) k9egcDMkXHMyp3quFPWrnH FuZzEwMzNcZnRuYmpcdWMx LOmtpjQlOFhfsEslUCR4HG XnFR5ymIcgfSx8eTtxNWZb fyY1bYArCFqsn7tcTFE8l5 cwskwyELAvUQngMe6nhEMd kMrcRfOnGIZmYVq7sE83OM RelO5flDSgDYw5IXRzcUJl vvPbAsOeESIgwMQypTA7MX WvNT9ymcanGHfrEXesREGh pxD0RHErvTTeX1GbRBCnWP 6hmbpjITC0VHacNQBxQIB8 YwKhWVJfx6Iyczi4YjSbtB FyZFxwbGFpblxmczIwXHBh ciBBLiBFTkRPTUVUUklVTS jfE2YTDZNBKMfLHwqqQVPv DNIaZTQeGILKN7yNWmGVQJ XFOgGtXK8TE66PSTWDBF6i cGFyXHBhciBIYXNhbmFpbi UUIbZ4hGaaGfJimpLWUOHl biwgTUQgIFxwYXJcZnMyMi EYeEjmVS6dBUFiofVgfxwe TUQgIDExLzcvMjAyMyAgMj owMCBQTVxwYXJccGFyZFxm stFiJNNyxuxsQAC0e5ehsB YxXHNzdGVjZjIyMDAwXGFu o9snVQSfyNGlIwBbIaZuHp UpVlsuvHRpZRLfDuRkd7rv f340dNJqf5ecPUNnUiV3lG MfOTTjcBipred1wAfvNgVw KXNkk6ubacCrIuDxPYUvRT QkPKHrhFXsE267CQUiPNzu s5vxk5LmBBYbgFSxa7O6SM DZNBvvWcQmI576r2ixh9fe cqPmjQD5TYQzOLC7DKytsq PwrjN7HMqviEJhZsP8APdg pgSnBFqstvPlhdIkMrs0NB EqL190WHF2zStbw3fkBMO0 JMLeNSUaQrnyNz2rjAMeI1 31BMDhGDRJYUOapZw4MLKq daHnusRbfJOIv016D694g9 puUMSrzaGnwZoYctvfg4mh U332VZTvcUWeqsSpEtOkXT AudLDmvBL5MHThMP6rsjmj AXgjORybZYOxbrN8LCZuzT GvF2ArMGIjEB0yruycNFI6 PVrxDQAsGRT1DoWkKAWou3 Pdrxm4DeNsvb5xdc39PTS6 x5VesOudANR4UUR2UyYdIy 4twBMvEKDcJB4cZxOevNAv AARarc96lViyZVwjjoGlfM 1yUhBkSSKuzJStRRBwXR3g rTTwOQWnrM6qvhviMTEtCt FgjfyhDBRicMtsieEjCp6f mGdwUBN4JOtlP3jiuB5zDx Y6WAtiG0vrpJ5gDBp9NKnu vOC3DCNrpO5qQX9lxkvpt8 cgPIqlJHjuZZKfdyW1tlO8 HMCyyEUaP7AhuS8rHNFgZI 4jxkwfi4ueLGO5FBozHOEa TMS8KeZnERYgx3Jmpjd7Aa Jyy4SalTFhTJwkC76gl013 WJZwmjUhM0havOSlkdtbgU SkhoyaWRnrmeH2WROeUQJz YWluXGYxXGZzMjBcbGFuZz EwMzNcaGljaFxmMVxkYmNo EWUwSUamC8hsSlBsN8BgKI VhYvMoxLXbAHswbGQ5LMDc HVEzd40jnJa7FQEeualef1 NwRBKsiXBxcXOawZ3ghnIf o3rvPCOwQNHrDBQqC0VoFP F3tVLbQZDoqDYwbHW4WL8u odCzZR0lUATpIoegxmLukT SclrQtMKPrQBkxv2wjVU2t ZCXinBwpmN0edDX3HLTgu9 fjrYEuaBUlg6gnn6ViknNi ZShzKSBtYXkgYXBwZWFyIG 4yZUSagARhpyFyn5M1Ulob jRFutxcqDtoawsB8DEnvlf nmBQAdCEnhA5edTyIsOURw yCqvCuaxi9IoFCZdPSXkYl hccGFyfX0= Clinical Information (test code = 3220137935) Abnormal uterine bleeding [N93.9] Gross Description (test code = 2987681081) g3xlxETdWGCxjEGRGUS2JI InIH8itNeerWy1nDobMFEa ncW3nYFdLHmle1vlVHA6w0 raerBOGnwpKMBnTI5tUQjv CROfFG4wSfEaAZCyMcKqUU BhcGVydzEyMjQwXHBhcGVy hBI5AEVaCZ4rchyyEApnLH owMWPknpF0ZJTioOCiJ9Oc GMNqEI3eaqkiHTM7TWPTRh yeMt1klFRmaKqgWqMhYkVc YXJzZXQwXGZuaWwgQXJpYW y0oE2LFgrzXNQ3SQLTFbuc LsjlpPuuw8WkuEMrTBIdGI xcaWQgNTEwMDAgXFxkYiBP TyPsYyR2LTihFfH6VlW5VT d0TEJGIZIyQje8BSS1AsA9 NZj3NZWdMV0nCHpzyZJcCL hcGtodEPtmH520POozVEIw N8QxG9IwWCrqCuQoUFpsWF GxGWZjMLofCQBdO4UTYEAu GHg5AyBmXMKuUGu3LOakL8 ROEUJdPDA3DQU8ZZT0DaW2 NVy2FGWRDr3oWAr7WEU6YC X1WCO9SPr7PyAxMYHhNgUw FZGrNFIwJQbdqDPzYX6zrL uwHZSbPT2XQSYcILvcSHNq CiWrC0AIX9cBQW8eETwgeL JjaFxmczIyXHBhciANClxw ACImZW7NMBSbDBviAMs0qd PfTWYdCjDlBDXgK81lg0OV s4OpGZ2FUGm6ujSvgsMGPa NwZWNpbWVuIEEgaXMgcmVj RHw9JPPyWqJkc8dyzUAeAM shRCV7pTImYHEwDSDdGJSq RD87F0GuenPtJYswHJyqtm DvEjBvLDObweYsiWW8lzea bCBjdXJldHRpbmdzIiBhbm KcF98hh9lheCUvz4RpBMX1 oPi1ARQwFNVxYSQrI8boh9 l8zLDdJ7ljZTrylJJkg3Nz wIUcBSFutdyinEWsTKp7bZ RcXQRkUtSviVzxb8XnOCTv XHvcGT92xtYtUX23PCdcUR 9mXBwgMW4rMDHuAZzcOALo C4QwH7A3JJugAHCfAXCpmS MykY7rugUxunJkuUj0YPTp EQJ1qEPvlKfbLTWzUemtdL U3RBFrIdXtqeXxs2SceNh1 zZAdQDglLIPiaJ9ofG8cAL EuXHBhciANClxwYXIgDQpc v0IvCTrlcDcwGOXpVaDyZR kTXLC8XFZlbkJajFwfRFMD QSAoQVNDUCkNClxlcGljTm ZngFOeErD8NIItqOOgBKP7 BR1jjHczHJIoZ9YwT6Jdse W3OJEknvSZOitxLFQiJK5O fQ== Disclaimer (test code = 1375337426) k6ezeLPvSQXox0opHYNhiG FuZzEwMzNcZnRuYmpcdWMx NLmwsxLyJAjmg2CwY9GuAl AwMFxhbnNpXGRlZmxhbmcx MGQbFGW2maVtFUXhZTbcWS BhNCgcBb1vlWUrdWyzUuKc TFMzr6kdsuBZWEbbNxOkT2 82KDZePAdcv6gtb3KjBSYz qNQet7B0LMQOnbjvaTj7vE kgL50yj6K4SujrZ8wpZJUb LHIeI5XqJH1iYOFxOco8HU K8CQF0YFJoFIUgI7IrOK2b DBBxdUCjOHh7r6qhbFuzYV AcLES3s4tzUZtwgjViMV1t vf4tmVd8m8jxfqXlMLQuLI YlyIGYNYKaO0MacSbvVc2i jTd0eXplPkteFDM6Pkx6SW 5elo80cms5cXeoXDVeqbep EmS9SCvzLKDbusvlTYz0SR xkTNLobSK0VIAhkNOpB9Kp LDSmVL3gawj7HFM1NPdrZD VrGdQ3FDLknBYqAUOrvUxi RDlth904GZQ7NbTkFI2sR0 Dty9O0dW4zlAQmJHQyiLUx JeZyFHUruz9umDKkBGgom1 AtSAC3owC8cLXnaKSxYTYv VN19Kgkpa2VrYlybx4EqZ3 2osNW8KQowy5bxJH4tLdO5 ebBhZCmmq5jfjG3eLkK0CE jgLI4sIF0jFBSolV9ykrww XHBnYnJkcmhlYWRccGdicm FyXf0zzQjkEIZ3NGrlJ5lg yG1eLjO8WOssT3cihW9nCL k7QFxbeGK5YLFmaZ3zQH3m wmkpf6pxNUndJIriWXOqax T1kdR1BJVmwDAjS0GvcT1h QIStWL5fpzcmm5hvILL8PU wgEJJbVUO6MzJaXLNvy2Ao jsg2FeEhs9ZdpYOrDTuqI0 3pz241JKRaadFeN1pzjKLa mopmbSAkbfqvCCthegI3BA RhceFok8KpBAYjSEQ4VJir RFpryOLmOMUmcCmhn5beH3 RscGFyXHBsYWluXGYxXGZz MjBcbGFuZzEwMzNcaGljaF zxTAcyZwBxTRYqKObnK7kd LxDiH5EcVBGqNjKtkJPwH4 ggVGhpcyByZXBvcnQgbWF5 JRoaP1u7DKRblrIvdYq1fk RrAkOxRYVaJVO9TOqdnOMr MEPvh1JbxzhmlCKeGl5qiO AmXRXdgQ2bTPIiELVwMZxd II9exDw4UZUMfGAgtIUjWt SAGLHvMX15zoYvDUFGucyu t3R8STrbQZAby2LupPXbP8 uhy3HtHLVns98sCN5bz1B7 l6opCUS3EZ0wl6YwIQBnwT QcqDOqCOHwg5Wnxnbae9Nh YUDneyPdh7RaAAMzchWinM HyOOXrhfSctx7kiwWmEXGk GYNcU1ApkliupReovlDgUU Cyni2hcqVeXNM5KLMETZTs KYMkp7RbkI2omAQFNPI5mQ Rdez5pcjNUlORaHPSebh58 DPWbBD7wP4ocVAKdZSSfzt QcpKIdg2KfGJAjdKS4oKDm VG2LLtVOz84mAQOaLADRrw UdJZMvbRfuhMG0sqN2vE4d IChGREEpLlx+IFRoZSBGRE OgJP9mobQfl0ChgjOtzTrb JCZgtUAyr4BjvOGjw3YerE zfy9XkjDAmyQToAA3oUDQj clxwYXIgVVRNQiBMYWJvcm H2o7GlVNPfQMHqVTH9qFme yco5FBKudU9oLROqT6autk qkNDwkCOSrk2BqhC2rhEPO pKNvs5RktGQoeSHZzYKsHS 8pubPrQQtXMMsDNRW8fsIf KLXtv0AhTGedF0asZ22vzS fgsLz9iBE4ZEV4rG0rAqd+ IFxwYXJccGFyIEFwcHJvcH VlMAFqwWztftQvJ5CzfdIx zD6zbSGtqjAxFW5bKG3xJ9 E6kGAhRYFhokDfc8klMKyi dmUgYmVlbiByZXZpZXdlZC Wpz0KzKAknDLH6ODfgtdRz bmNsdWRpbmcgSCZFLCBTcG KydNBdANO0HNlxfaWequTq YM7zuN4znMhhhC3tvQGzvR I4flmuPVXtCBXscYqdNYMi WQ4llVsrfD9wYfDqWxGeHC nhWO7bLRDeL2agvFBiRZCn AIUwP6bjSqLzjW7zuNslRN xjZjJcZnMyMFxwYXJccGFy XHBsYWluXGYxXGZzMjBcbG FuZzEwMzNcaGljaFxmMVxk LnPzWKKhGEbjH7ylMqJfU8 KdIAUmEbJtuUBsL8svKXlp PEZ8ICBsPE2smMPrYM43nO Hjf7wfOPuobJlbbz5rG49y zQPxZXgcxMfjHASbe77ut3 UcCNVlpeYncg2zQXSfqqH9 vH3uWEOheVrxQKBviUBpKY Dxa0DzYZlgtGOxdmOkPEge KDLlAYQumVBzevD8maFxwm OuktUrENVqbAnlLRIuh0Pi HUTxDOneo7Wogz2jbHOdPN CupvPCdJslsFMkyB0wV0Nh WWOqBQYiii9qKPYdtV4xOQ gse7IkzjjoBEYaZRQeSGXx wkMzbp2jVQYouMAETX8YQU bseUBkz7FvogRlL5hJYNB7 NUQwNjYwMjgxKSBleGNlcH RjOYPlbr51GNDekF9awXej CXHqbX9ubY7pdYbcrP2eWx WmNpTkANirHO9cIRQkY3wo vPFaRDCvEVZfI9hmSqUchL 9jaFxmMVxjZjJcZnMyMFxw YXJ9fQ== Embedded Images (test code = 7000632346) [facility] [id number] 11:43:00* Test Item Value Reference Range Interpretation Comme nts POCT PREG (test code = 1605) Negative On board controls acceptable with C Line (test code = 3574) Yes POCT PREG LOT # (test code = 3575) POCT PREG TEST DATE ( test code = 3576) Lab Interpretation (test cod e = 32441-8) Normal [facility] TaylorG6PD SCREENING [id number] 17:39:58* Test Item Value Reference Range Interpretation Comme [facility] G6PD SCREEN (test code = 3220644108) Normal Normal MARCELINO (test code = MARCELINO) Normal G6PD activity. ?No evidence of G6PD deficiency. Lab Interpretation (test code = 25083-8) Normal [facility] TaylorQUANTIFERON TB ASSAY [id number] 18:27:02* Test Item Value Reference Range Interpretation Comme nts QFT Gold Plus Result (test code = 06292-3) Negative Negative MARCELINO (test code = MARCELINO) [...] /publications/guidelin es/default.htm. Lab Interpretation (test code = 76143-4) Normal [facility] TaylorTHIOPURINE METHYLTRANSFERASE, [id number] 03:08:32* Test Item Value Reference Range Interpretation Comme nts THIOPURINE METHYLTRANSFERASE, RBC (test code = 02235-4) 27.1 U/mL 24.0-44.0 INTERPRETIVE INF ORMATION: Thiopurine [...] developed and its performance characteristics determined by [employer]. It has not been cleared or approved by the [place] Food and Drug Administration. This test was performed in a CLIA certified laboratory and is intended for clinical purposes.Performed By: [facility] [employer] [facility] [facility] [place] [address] [id number] Director: Alex Adrian MD, PhDCLIA Number: [id number] [facility] TaylorQUANTIFERON-TB [id number] 21:43:02* Test Item Value Reference Range Interpretation Comme nts Extra Tube (test code = 3908627600) Received in Lab [facility] TaylorLUPUS ANTICOAGULANT REFLEXIVE [id number] 20:21:52* Test Item Value Reference Range Interpretation Comments Prothrombin Time (test code = 5902-2) 13.0 See_Comment [Automated message] The system which generated this result transmitted reference range: 12.0 - 15.5 sec. The reference range was not used to interpret this result as normal/abnormal. PTT-LA Screen (PTT-D) (test code = 37835-8) 43 See_Comment [Automated [employer]] The system which generated this result transmitted reference range: 32 - 48 sec. The reference range was not used to interpret this result as normal/abnormal. Thrombin Time (test code = 3243-3) Not Applicable See_Comment [Automated [employer]] The system which generated this result transmitted [...] normal/abnormal. PTT-D Heparin Neutralized (test code = 52682-9) Not Applicable See_Comment [Automated messa ge] The [...] Platelet Neutralization (PTT-D, Confirm) (test code = 53218-1) Not Applicable Negative dRVVT Screen (test code = 6303-2) 31 See_Comment L [Automated messa ge] The system which generated this result transmitted reference range: 33 - 44 sec. The reference range was not used to interpret this result as normal/abnormal. dRVVT 1:1 Mix (test code = 76519-3) Not Applicable See_Comment [Automated messa ge] The system which generated this result transmitted reference range: 33 - 44 sec. The reference range was not used to interpret this result as normal/abnormal. dRVVT Confirmation (test code = 77302-5) Not Applicable Negative ratio Hexagonal Phospholipid Neutral Reflex (test code = 68914-5) Not Applicable Negative Lupus Anticoagulant Interpretation (test code = 23927-9) See Note Lupus anticoagul ant not detected.The [...] testing has not already been performed.Performed By: [facility] [employer] [facility] [facility] [place] [address] [id number] Director: Alex Adrian MD, PhDCLIA Number: [id number] Lab Interpretation (test code = 68573-9) Abnormal [facility] TaylorRrmeecGLVN-WNZHEKTAFEBCRTTBX9426-68-22 15:04:39* Test Item Value Reference Range Interpretation Comme nts Anti-Ribonucleoprotein (test code = 1766490558) Negative Negative MARCELINO (test code = MARCELINO) Positive - Antibod y detected.Negative - No antibody detected. Lab Interpretation (test code = 35284-0) Normal [facility] TaylorANTI-DUMONT(SM)2023-04-11 15:04:39* Test Item Value Reference Range Interpretation Comme nts Anti-Dumont (test code = 1575738002) Negative Negative MARCELINO (test code = MARCELINO) Positive - Antibod y detected.Negative - No antibody detected. Lab Interpretation (test code = 56162-8) [facility] [place]-SSA[facility]RO)2023-04-11 15:04:39* Test Item Value Reference Range Interpretation Comme nts ANTI-SSA(RO) (test code = 4542894150) Negative Negative MARCELINO (test code = MARCELINO) Positive - Antibod y detected.Negative - No antibody detected. Lab Interpretation (test code = 31896-2) [facility] [place]-SSB(LA)2023-04-11 15:04:39* Test Item Value Reference Range Interpretation Comme nts Anti-SSB(LA) (test code = 3871924521) Negative Negative MARCELINO (test code = MARCELINO) Positive - Antibod y detected.Negative - No antibody detected. Lab Interpretation (test code = 07971-1) [facility] [place]-DOUBLE STRANDED [id number] 15:04:38* Test Item Value Reference Range Interpretation Comme nts ANTI-DSDNA (test code = 6204200726) See_Comment [Automated message] The system which generated this result transmitted reference range: 0.0 - 4.0 IU/mL. The reference range was not used to interpret this result as normal/abnormal. MARCELINO (test code = MARCELINO) Negative ? ?< or = 4 IU/mLPositive ? ? ?> or = 10 IU/mLIndetermin ate ?5-9 IU/mL Lab Interpretation (test code = 77443-6) [facility], [id number] 21:32:37* Test Item Value Reference Range Interpretation Comme nts VIT D 25OH (test code = 13506-8) 17 ng/mL 25-80 L MARCELINO (test code = MARCELINO) Deficiency: <20 ng/mLInsufficiency: 20-24 ng/mLOptimal: 25-80 ng/mL Lab Interpretation (test code = 90445-1) Abnormal [facility] TaylorC3 RZMNULXZMY8975-77-65 19:42:07* Test Item Value Reference Range Interpretation Comme nts C3 (test code = 6274409438) 113 mg/dL 86-184 Lab Interpretation (test cod e = 63668-8) Normal [facility] TaylorC4 SFKVQLKFON3083-38-52 19:42:07* Test Item Value Reference Range Interpretation Comme nts C4 (test code = 4306694845) 40 mg/dL 20-59 Lab Interpretation (test cod e = 87764-4) Normal [facility] TaylorC-REACTIVE [id number] 19:42:07* Test Item Value Reference Range Interpretation Comme nts CRP (test code = 6416593710) 1.4 mg/dL <=0.8 H Lab Interpretation (test cod e = 73217-3) Abnormal [facility] TaylorIRON [id number] 18:18:12* Test Item Value Reference Range Interpretation Comme nts IRON (test code = 4074258112) 35 ug/dL 50-160 L TIBC (test code = 6842019467) 425 ug/dL 250-410 H % FE SAT (test code = 8762716551) 8 % 20-50 L Lab Interpretation (test cod e = 99733-5) Abnormal [facility] TaylorCREATINE [id number] 18:08:29* Test Item Value Reference Range Interpretation Comme nts CK (test code = 8817446509) 31 U/L 33-194 L Lab Interpretation (test cod e = 17819-2) Abnormal [facility] TaylorCOMP. METABOLIC PANEL (62185)2023-01-26 03:18:50* Test Item Value Reference Range Interpretation Comme nts NA (test code = 2490662038) 139 mmol/L 135-145 K (test code = 4836343887) 4.0 mmol/L 3.5-5.0 CL (test code = 0238672263) 103 mmol/L 98-108 CO2 TOTAL (test code = 1301421257) 25 mmol/L 23-31 AGAP (test code = 8873104353) 11 2-16 BUN (test code = 7838588803) 12 mg/dL 7-23 GLUCOSE (test code = 1077137452) 93 mg/dL 70-110 CREATININE (test code = 0814340835) 0.62 mg/dL 0.50-1.04 TOTAL BILI (test code = 3404806175) 0.4 mg/dL 0.1-1.1 CALCIUM (test code = 9101501059) 9.3 mg/dL 8.6-10.6 T PROTEIN (test code = 0686424302) 8.1 g/dL 6.3-8.2 ALBUMIN (test code = 3961959822) 4.4 g/dL 3.5-5.0 ALK PHOS (test code = 4910492685) 89 U/L 34-122 ALTv (test code = 1742-6) 19 U/L 5-35 AST(SGOT) (test code = 0094409793) 34 U/L 13-40 eGFR (test code = 7678308688) 113.8 mL/min/1.73m2 MARCELINO (test code = MARCELINO) [...] [id number]* Test Item Value Reference Range Interpretation Comme nts LIPASE (test code = 6100046664) 132 U/L 0-220 Lab Interpretation (test cod e = 39018-9) [facility] [id number] 02:53:28* Test Item Value Reference Range Interpretation [...] 31.6 g/dL 31.6-35.1 RDW-SD (test code = 17714-7) 42.7 fL 39.0-49.9 RDW-CV (test code = 788-0) 13.4 % 12.0-15.5 PLT (test code = 777-3) 424 See_Comment H [Automated messa ge] The system which generated this result transmitted reference range: 166 - 358 10*3/?L. The reference range was not used to interpret this result as normal/abnormal. MPV (test code = 39798-5) 9.9 fL 9.5-12.9 IPF % (test code = 0220232304) 2.3 % 1.3-7.7 Platelet count measured by fluorescence method. NRBC/100 WBC (test code = 3356750366) 0.0 See_Comment [Automated me ssage] The system which generated this result transmitted reference range: 0.0 - 10.0 /100 WBCs. The reference range was not used to interpret this result as normal/abnormal. NRBC x10^3 (test code = 1338757115) See_Comment [Automated messa ge] The system which generated this result transmitted reference range: 10*3/?L. The reference range was not used to interpret this result as normal/abnormal. GRAN MAT (NEUT) % (test code = 770-8) 59.8 % IMM GRAN % (test code = 4429514782) 0.60 % LYMPH % (test code = 736-9) 29.3 % MONO % (test code = 5905-5) 8.5 % EOS % (test code = 713-8) 1.2 % BASO % (test code = 706-2) 0.6 % GRAN MAT x10^3(ANC) (test code = 4639890586) 4.84 10*3/uL 1.88-7.09 IMM GRAN x10^3 (test code = 2366803236) 0.05 10*3/uL 0.00-0.06 LYMPH x10^3 (test code = 731-0) 2.38 10*3/uL 1.32-3.29 MONO x10^3 (test code = 742-7) 0.69 10*3/uL 0.33-0.92 EOS x10^3 (test code = 711-2) 0.10 10*3/uL 0.03-0.39 BASO x10^3 (test code = 704-7) 0.05 10*3/uL 0.01-0.07 Lab Interpretation (test code = 03211-7) Abnormal [facility] [id number] 02:03:00* Test Item Value Reference Range Interpretation Comme nts POCT PREG (test code = 1605) Negative On board controls acceptable with C Line (test code = 3574) Yes POCT PREG LOT # (test code = 3578) [id number] POCT PREG TEST DATE ( test code = 3576) 03/26/2024 Lab Interpretation (test cod e = 08113-5) [facility] [id number] 17:54:00* Test Item Value Reference Range Interpretation Comme nts POCT PREG (test code = 1605) Positive On board controls acceptable with C Line (test code = 3574) Yes POCT PREG LOT # (test code = 3575) POCT PREG TEST DATE ( test code = 3576) Lab Interpretation (test cod e = 26274-4) Abnormal [facility] WITHOUT [id number] 04:28:06* Test Item Value Reference Range Interpretation [...] result as normal/abnormal. MPV (test code = 21530-4) 10.9 fL 9.5-12.9 RDW-CV (test code = 788-0) 13.1 % 12.0-15.5 RDW-SD (test code = 61502-8) 42.8 fL 39.0-49.9 NRBC x10^3 (test code = 3275524256) See_Comment [Automated messa ge] The system which generated this result transmitted reference range: 10*3/?L. The reference range was not used to interpret this result as normal/abnormal. NRBC/100 WBC (test code = 7265613816) 0.0 See_Comment [Automated messa ge] The system which generated this result transmitted reference range: 0.0 - 10.0 /100 WBCs. The reference range was not used to interpret this result as normal/abnormal. IPF % (test code = 2169143172) Lab Interpretation (test code = 28179-1) Abnormal [facility] WITHOUT [id number] 04:28:06* Test Item Value Reference Range Interpretation [...] result as normal/abnormal. MPV (test code = 15121-6) 10.9 fL 9.5-12.9 RDW-CV (test code = 788-0) 13.1 % 12.0-15.5 RDW-SD (test code = 39995-2) 42.8 fL 39.0-49.9 NRBC x10^3 (test code = 8207057691) See_Comment [Automated [employer] ge] The system which generated this result transmitted reference range: 10*3/?L. The reference range was not used to interpret this result as normal/abnormal. NRBC/100 WBC (test code = 5960483747) 0.0 See_Comment [Automated [employer] ge] The system which generated this result transmitted reference range: 0.0 - 10.0 /100 WBCs. The reference range was not used to interpret this result as normal/abnormal. IPF % (test code = 2674019796) Lab Interpretation (test code = 62100-6) Abnormal [facility] BETA HCG [id number] 19:25:18* Test Item Value Reference Range Interpretation Comme nts BETA HCG (test code = 9081913892) 98638.00 See_Comment [Automated [employer]] The system which generated this result transmitted reference range: Non- female and male patients: <5 mIU/mL. The reference range was not used to interpret this result as normal/abnormal. MARCELINO (test code = MARCELINO) Gestational Age ?Range (mIU/mL) 1-10 ?Weeks ?[id number] Weeks ?65908-64543799-79 Weeks ?0998-73840384-17 Weeks ?5717-873442 Biotin has been reported to cause a negative bias, interpret results relative to patient's use of biotin. [facility] BETA HCG [id number] 19:25:18* Test Item Value Reference Range Interpretation Comme nts BETA HCG (test code = 8915706645) 78324.00 See_Comment [Automated [employer] ge] The system which generated this result transmitted reference range: Non- female and male patients: <5 mIU/mL. The reference range was not used to interpret this result as normal/abnormal. MARCELINO (test code = MARCELINO) Gestational Age ?Range (mIU/mL) 1-10 ?Weeks ?[phone] Weeks ?91918-91213428-03 Weeks ?3378-33756370-01 Weeks ?6890-141525 Biotin has been reported to cause a negative bias, interpret results relative to patient's use of biotin. [facility]. METABOLIC PANEL ([id number])2023-01-08 16:46:39* Test Item Value Reference Range Interpretation Comme nts NA (test code = 0257662843) 136 mmol/L 135-145 K (test code = 1808254275) 3.6 mmol/L 3.5-5.0 CL (test code = 8965512321) 104 mmol/L 98-108 CO2 TOTAL (test code = 3386573079) 23 mmol/L 23-31 AGAP (test code = 9267548600) 9 2-16 BUN (test code = 1361318884) 6 mg/dL 7-23 L GLUCOSE (test code = 1098542512) 97 mg/dL 70-110 CREATININE (test code = 3717115953) 0.49 mg/dL 0.50-1.04 L TOTAL BILI (test code = 8820702461) 0.5 mg/dL 0.1-1.1 CALCIUM (test code = 2352694836) 8.7 mg/dL 8.6-10.6 T PROTEIN (test code = 7714997019) 7.5 g/dL 6.3-8.2 ALBUMIN (test code = 1386174610) 3.9 g/dL 3.5-5.0 ALK PHOS (test code = 0614188300) 61 U/L 34-122 ALTv (test code = 1742-6) 18 U/L 5-35 AST(SGOT) (test code = 5962059227) 23 U/L 13-40 eGFR (test code = 0915510995) 149.3 mL/min/1.73m2 MARCELINO (test code = MARCELINO) [...] imaging tests). Lab Interpretation (test code = 86418-0) Abnormal [facility]. METABOLIC PANEL ([id number])2023-01-08 16:46:39* Test Item Value Reference Range Interpretation Comme nts NA (test code = 3661509972) 136 mmol/L 135-145 K (test code = 9747296888) 3.6 mmol/L 3.5-5.0 CL (test code = 5897739755) 104 mmol/L 98-108 CO2 TOTAL (test code = 2768803378) 23 mmol/L 23-31 AGAP (test code = 2693979582) 9 2-16 BUN (test code = 6864061729) 6 mg/dL 7-23 L GLUCOSE (test code = 8268250243) 97 mg/dL 70-110 CREATININE (test code = 7281593819) 0.49 mg/dL 0.50-1.04 L TOTAL BILI (test code = 4701434704) 0.5 mg/dL 0.1-1.1 CALCIUM (test code = 0139730257) 8.7 mg/dL 8.6-10.6 T PROTEIN (test code = 3876170334) 7.5 g/dL 6.3-8.2 ALBUMIN (test code = 4859844014) 3.9 g/dL 3.5-5.0 ALK PHOS (test code = 1480138410) 61 U/L 34-122 ALTv (test code = 1742-6) 18 U/L 5-35 AST(SGOT) (test code = 2673979995) 23 U/L 13-40 eGFR (test code = 4696820304) 149.3 mL/min/1.73m2 MARCELINO (test code = MARCELINO) [...] imaging tests). Lab Interpretation (test code = 25383-0) [facility] 16[facility]46:19* Test Item Value Reference Range Interpretation Comme nts LIPASE (test code = 2333979122) 81 U/L 0-220 Lab Interpretation (test cod e = 22046-0) Normal [facility] 16:46:19* Test Item Value Reference Range Interpretation Comme nts LIPASE (test code = 6657665722) 81 U/L 0-220 Lab Interpretation (test cod e = 99418-6) Normal [facility] [id number] 16:37:55* Test Item Value Reference Range Interpretation [...] 33.0 g/dL 31.6-35.1 RDW-SD (test code = 63393-7) 40.9 fL 39.0-49.9 RDW-CV (test code = 788-0) 13.1 % 12.0-15.5 PLT (test code = 777-3) 273 See_Comment [Automated messa ge] The system which generated this result transmitted reference range: 166 - 358 10*3/?L. The reference range was not used to interpret this result as normal/abnormal. MPV (test code = 00250-5) 10.2 fL 9.5-12.9 NRBC/100 WBC (test code = 3087110275) 0.0 See_Comment [Automated me ssage] The system which generated this result transmitted reference range: 0.0 - 10.0 /100 WBCs. The reference range was not used to interpret this result as normal/abnormal. NRBC x10^3 (test code = 3467229881) See_Comment [Automated messa ge] The system which generated this result transmitted reference range: 10*3/?L. The reference range was not used to interpret this result as normal/abnormal. GRAN MAT (NEUT) % (test code = 770-8) 79.1 % IMM GRAN % (test code = 6169019631) 0.30 % LYMPH % (test code = 736-9) 10.3 % MONO % (test code = 5905-5) 8.6 % EOS % (test code = 713-8) 1.2 % BASO % (test code = 706-2) 0.5 % GRAN MAT x10^3(ANC) (test code = 8281516735) 4.78 10*3/uL 1.88-7.09 IMM GRAN x10^3 (test code = 5041349368) 0.00-0.06 LYMPH x10^3 (test code = 731-0) 0.62 10*3/uL 1.32-3.29 L MONO x10^3 (test code = 742-7) 0.52 10*3/uL 0.33-0.92 EOS x10^3 (test code = 711-2) 0.07 10*3/uL 0.03-0.39 BASO x10^3 (test code = 704-7) 0.03 10*3/uL 0.01-0.07 Lab Interpretation (test code = 92832-0) Abnormal [facility] WITH [id number] 16:37:55* Test Item Value Reference Range Interpretation [...] 33.0 g/dL 31.6-35.1 RDW-SD (test code = 14574-1) 40.9 fL 39.0-49.9 RDW-CV (test code = 788-0) 13.1 % 12.0-15.5 PLT (test code = 777-3) 273 See_Comment [Automated messa ge] The system which generated this result transmitted reference range: 166 - 358 10*3/?L. The reference range was not used to interpret this result as normal/abnormal. MPV (test code = 00273-8) 10.2 fL 9.5-12.9 NRBC/100 WBC (test code = 2415018773) 0.0 See_Comment [Automated gopogo ssage] The system which generated this result transmitted reference range: 0.0 - 10.0 /100 WBCs. The reference range was not used to interpret this result as normal/abnormal. NRBC x10^3 (test code = 5957862607) See_Comment [Automated MicroTranspondera ge] The system which generated this result transmitted reference range: 10*3/?L. The reference range was not used to interpret this result as normal/abnormal. GRAN MAT (NEUT) % (test code = 770-8) 79.1 % IMM GRAN % (test code = 7551901670) 0.30 % LYMPH % (test code = 736-9) 10.3 % MONO % (test code = 5905-5) 8.6 % EOS % (test code = 713-8) 1.2 % BASO % (test code = 706-2) 0.5 % GRAN MAT x10^3(ANC) (test code = 0771587685) 4.78 10*3/uL 1.88-7.09 IMM GRAN x10^3 (test code = 5746211639) 0.00-0.06 LYMPH x10^3 (test code = 731-0) 0.62 10*3/uL 1.32-3.29 L MONO x10^3 (test code = 742-7) 0.52 10*3/uL 0.33-0.92 EOS x10^3 (test code = 711-2) 0.07 10*3/uL 0.03-0.39 BASO x10^3 (test code = 704-7) 0.03 10*3/uL 0.01-0.07 Lab Interpretation (test code = 83683-5) [facility] METABOLIC PANEL (16475)2023-01-02 04:39:51* Test Item Value Reference Range Interpretation Comme nts NA (test code = 3880424049) 136 mmol/L 135-145 K (test code = 1033633373) 5.0 mmol/L 3.5-5.0 CL (test code = 5671730988) 101 mmol/L 98-108 CO2 TOTAL (test code = 9994207232) 25 mmol/L 23-31 AGAP (test code = 5091641094) 10 2-16 BUN (test code = 7970560939) 9 mg/dL 7-23 GLUCOSE (test code = 6928245794) 81 mg/dL 70-110 CREATININE (test code = 0897027788) 0.46 mg/dL 0.50-1.04 L TOTAL BILI (test code = 3853441407) 0.7 mg/dL 0.1-1.1 CALCIUM (test code = 2007215831) 9.6 mg/dL 8.6-10.6 T PROTEIN (test code = 9936065149) 8.4 g/dL 6.3-8.2 H ALBUMIN (test code = 0422172579) 4.5 g/dL 3.5-5.0 ALK PHOS (test code = 6405672398) 61 U/L 34-122 ALTv (test code = 1742-6) 19 U/L 5-35 AST(SGOT) (test code = 8043713444) 32 U/L 13-40 eGFR (test code = 4925379921) 160.6 mL/min/1.73m2 MARCELINO (test code = MARCELINO) [...] imaging tests). Lab Interpretation (test code = 57546-7) Abnormal [facility] WITH [id number] 04:26:51* Test Item Value Reference Range Interpretation Comme nts WBC (test code = 6690-2) 8.93 See_Comment [Automated LimeTray] The system which generated this result transmitted reference range: 4.30 - 11.10 10*3/?L. The reference range was not used to interpret this result as normal/abnormal. RBC (test code = 789-8) 4.16 See_Comment [Automated [employer]] The system which generated this result transmitted [...] 32.4 g/dL 31.6-35.1 RDW-SD (test code = 22112-8) 42.9 fL 39.0-49.9 RDW-CV (test code = 788-0) 13.2 % 12.0-15.5 PLT (test code = 777-3) 389 See_Comment H [Automated messa ge] The system which generated this result transmitted reference range: 166 - 358 10*3/?L. The reference range was not used to interpret this result as normal/abnormal. MPV (test code = 88442-3) 10.1 fL 9.5-12.9 NRBC/100 WBC (test code = 9285192065) 0.0 See_Comment [Automated gopogo ssage] The system which generated this result transmitted reference range: 0.0 - 10.0 /100 WBCs. The reference range was not used to interpret this result as normal/abnormal. NRBC x10^3 (test code = 6753317972) See_Comment [Automated MicroTranspondera ge] The system which generated this result transmitted reference range: 10*3/?L. The reference range was not used to interpret this result as normal/abnormal. GRAN MAT (NEUT) % (test code = 770-8) 62.8 % IMM GRAN % (test code = 4746397047) 0.30 % LYMPH % (test code = 736-9) 27.4 % MONO % (test code = 5905-5) 7.2 % EOS % (test code = 713-8) 1.7 % BASO % (test code = 706-2) 0.6 % GRAN MAT x10^3(ANC) (test code = 3829829175) 5.61 10*3/uL 1.88-7.09 IMM GRAN x10^3 (test code = 8241843067) 0.03 10*3/uL 0.00-0.06 LYMPH x10^3 (test code = 731-0) 2.45 10*3/uL 1.32-3.29 MONO x10^3 (test code = 742-7) 0.64 10*3/uL 0.33-0.92 EOS x10^3 (test code = 711-2) 0.15 10*3/uL 0.03-0.39 BASO x10^3 (test code = 704-7) 0.05 10*3/uL 0.01-0.07 Lab Interpretation (test code = 56470-1) [facility]normal [facility] Screen - ONCE [id number] 04:23:00* Test Item Value Reference Range Interpretation Comme nts ABO & RH (test code = 20) A Positive IAT (test code = 1185) Negative [facility] W SPECIFIC [id number] 16:06:00* Test Item Value Reference Range Interpretation [...] [facility] Taylor[facility] [id number] 05:59:00* Test Item Value Reference Range Interpretation Comme nts HCG SERUM (test code = HCG) 56847 mi-IU/ML 0-6 H 0 - 6 NOT PREGNA NT > 6 SUGGESTIVE OF EARLY RISES TWO FOLD EVERY 2 DAYS; SUGGEST RECONFIRMING AFTER 2 DAYS. 150,000-200,[address] TRIMESTER 10,000 - 50,000 2ND & 3RD TRIMESTER CBC W/AUTO [id number] 05:35:00* Test Item Value Reference Range Interpretation [...] = MDIFF) NO DIFF/SCN CRITERIA COMPREHENSIVE METABOLIC [id number] 05:27:00* Test Item Value Reference Range Interpretation [...] Unit/L 45-117 N POCT URINALYSIS W/O SPECIFIC [id number] 15:38:00* Test Item Value Reference Range Interpretation [...] = 3257) NEG Negative - Negati ve [facility] URINALYSIS W/O SPECIFIC [id number] 15:38:00* Test Item Value Reference Range Interpretation [...] = 3257) NEG Negative - Negati ve [facility] [id number] 15:37:00* Test Item Value Reference Range Interpretation Comme nts POCT PREG (test code = 1605) Positive On board controls acceptable with C Line (test code = 3574) Yes POCT PREG LOT # (test code = 3575) POCT PREG TEST DATE ( test code = 3576) [facility] [id number] 15:37:00* Test Item Value Reference Range Interpretation Comme nts POCT PREG (test code = 1605) Positive On board controls acceptable with C Line (test code = 3574) Yes POCT PREG LOT # (test code = 3575) POCT PREG TEST DATE ( test code = 3576) [facility] [id number] 17:56:00* Test Item Value Reference Range Interpretation Comme nts POCT PREG (test code = 1605) Positive On board controls acceptable with C Line (test code = 3574) Yes POCT PREG LOT # (test code = 3575) POCT PREG TEST DATE ( test code = 3576) [facility] [id number] 17:56:00* Test Item Value Reference Range Interpretation Comme nts POCT PREG (test code = 1605) Positive On board controls acceptable with C Line (test code = 3574) Yes POCT PREG LOT # (test code = 3575) POCT PREG TEST DATE ( test code = 3576) [facility] URINALYSIS W/O SPECIFIC [id number] 16:24:00* Test Item Value Reference Range Interpretation [...] = 3257) Trace Negative - Negati ve [facility] URINALYSIS W/O SPECIFIC [id number] 16:24:00* Test Item Value Reference Range Interpretation [...] = 3257) Trace Negative - Negati ve [facility] [id number] 20:16:00* Test Item Value Reference Range Interpretation Comme nts POCT PREG (test code = 1605) Negative On board controls acceptable with C Line (test code = 3574) Yes POCT PREG LOT # (test code = 3575) POCT PREG TEST DATE ( test code = 3576) [facility] (QUANTITATIVE)2022-09-27 00:50:12* Test Item Value Reference Range Interpretation Comme nts BETA HCG (test code = 5125442299) 2138.50 See_Comment [Automated MicroTranspondera ge] The system which generated this result transmitted reference range: Non- female and male patients: <5 mIU/mL. The reference range was not used to interpret this result as normal/abnormal. MARCELINO (test code = MARCELINO) Gestational Age ?Range (mIU/mL) 1-10 ?Weeks ?03-79903932-57 Weeks ?57137-51966735-05 Weeks ?6536-27543901-43 Weeks ?1531-748274 Biotin has been reported to cause a negative bias, interpret results relative to patient's use of biotin. [facility] ([facility])2022-09-27 00:50:12* Test Item Value Reference Range Interpretation Comme nts BETA HCG (test code = 0222256283) 2138.50 See_Comment [Automated MicroTranspondera ge] The system which generated this result transmitted reference range: Non- female and male patients: <5 mIU/mL. The reference range was not used to interpret this result as normal/abnormal. MARCELINO (test code = MARCELINO) Gestational Age ?Range (mIU/mL) 1-10 ?Weeks ?71-51800260-20 Weeks ?66155-18467490-50 Weeks ?0096-88001954-60 Weeks ?1531-152113 Biotin has been reported to cause a negative bias, interpret results relative to patient's use of biotin. [facility] METABOLIC PANEL (30786)2022-09-27 00:25:05* Test Item Value Reference Range Interpretation Comme nts NA (test code = 0662800856) 137 mmol/L 135-145 K (test code = 5059736170) 4.3 mmol/L 3.5-5.0 CL (test code = 8860876623) 103 mmol/L 98-108 CO2 TOTAL (test code = 5993880203) 24 mmol/L 23-31 AGAP (test code = 4913694357) 10 2-16 BUN (test code = 4404967046) 9 mg/dL 7-23 GLUCOSE (test code = 0668360817) 88 mg/dL 70-110 CREATININE (test code = 4556256871) 0.54 mg/dL 0.50-1.04 TOTAL BILI (test code = 9118743840) 0.4 mg/dL 0.1-1.1 CALCIUM (test code = 8493628822) 9.4 mg/dL 8.6-10.6 T PROTEIN (test code = 2959542562) 7.9 g/dL 6.3-8.2 ALBUMIN (test code = 5829303335) 4.5 g/dL 3.5-5.0 ALK PHOS (test code = 7272319898) 77 U/L 34-122 ALTv (test code = 1742-6) 18 U/L 5-35 AST(SGOT) (test code = 3010311240) 20 U/L 13-40 eGFR (test code = 3970821029) 133.5 mL/min/1.73m2 MARCELINO (test code = MARCELINO) [...] or urine or abnormalities in imaging tests). [facility]. METABOLIC PANEL (07477)2022-09-27 00:25:05* Test Item Value Reference Range Interpretation Comme nts NA (test code = 2419334840) 137 mmol/L 135-145 K (test code = 3306582418) 4.3 mmol/L 3.5-5.0 CL (test code = 8757539589) 103 mmol/L 98-108 CO2 TOTAL (test code = 0252224605) 24 mmol/L 23-31 AGAP (test code = 3583250837) 10 2-16 BUN (test code = 1069866813) 9 mg/dL 7-23 GLUCOSE (test code = 6927856856) 88 mg/dL 70-110 CREATININE (test code = 1438794994) 0.54 mg/dL 0.50-1.04 TOTAL BILI (test code = 4155079070) 0.4 mg/dL 0.1-1.1 CALCIUM (test code = 3993849836) 9.4 mg/dL 8.6-10.6 T PROTEIN (test code = 7230761143) 7.9 g/dL 6.3-8.2 ALBUMIN (test code = 0382202316) 4.5 g/dL 3.5-5.0 ALK PHOS (test code = 1206376288) 77 U/L 34-122 ALTv (test code = 1742-6) 18 U/L 5-35 AST(SGOT) (test code = 8698200221) 20 U/L 13-40 eGFR (test code = 0522370890) 133.5 mL/min/1.73m2 MARCELINO (test code = MARCELINO) [...] [facility] Taylor[facility]HR[facility] / [id number] 00:16:48* Test Item Value Reference Range Interpretation Comme nts KIZZY PATIENT (test code = 5964-2) 11.7 See_Comment L [Automated [employer]a [employer]] The system which generated this result transmitted reference range: 12.0 - 14.7 Seconds. The reference range was not used to interpret this result as normal/abnormal. INR (test code = 6301-6) 0.9 Normal INR <1.1; Warfarin Therapeutic range 2.0 to 3.0 or 2.5 to 3.5, depending upon the indications. Lab Interpretation (test code = 88512-1) [facility]normal [facility] Taylor[facility]HROM[facility] / [id number] 00:16:48* Test Item Value Reference Range Interpretation Comme nts PROTIME PATIENT (test code = 5964-2) 11.7 [...] the indications. Lab Interpretation (test code = 33986-8) [facility] WITH [id number] 00:09:05* Test Item Value Reference Range Interpretation [...] 32.5 g/dL 31.6-35.1 RDW-SD (test code = 11787-2) 42.0 fL 39.0-49.9 RDW-CV (test code = 788-0) 13.3 % 12.0-15.5 PLT (test code = 777-3) 364 See_Comment H [Automated messa ge] The system which generated this result transmitted reference range: 166 - 358 10*3/?L. The reference range was not used to interpret this result as normal/abnormal. MPV (test code = 89912-9) 10.0 fL 9.5-12.9 NRBC/100 WBC (test code = 3886694605) 0.0 See_Comment [Automated me ssage] The system which generated this result transmitted reference range: 0.0 - 10.0 /100 WBCs. The reference range was not used to interpret this result as normal/abnormal. NRBC x10^3 (test code = 8837437244) See_Comment [Automated messa ge] The system which generated this result transmitted reference range: 10*3/?L. The reference range was not used to interpret this result as normal/abnormal. GRAN MAT (NEUT) % (test code = 770-8) 72.5 % IMM GRAN % (test code = 2325776042) 0.30 % LYMPH % (test code = 736-9) 19.0 % MONO % (test code = 5905-5) 6.6 % EOS % (test code = 713-8) 1.2 % BASO % (test code = 706-2) 0.4 % GRAN MAT x10^3(ANC) (test code = 7889212985) 6.98 10*3/uL 1.88-7.09 IMM GRAN x10^3 (test code = 2543971210) 0.03 10*3/uL 0.00-0.06 LYMPH x10^3 (test code = 731-0) 1.83 10*3/uL 1.32-3.29 MONO x10^3 (test code = 742-7) 0.64 10*3/uL 0.33-0.92 EOS x10^3 (test code = 711-2) 0.12 10*3/uL 0.03-0.39 BASO x10^3 (test code = 704-7) 0.04 10*3/uL 0.01-0.07 Lab Interpretation (test code = 53798-4) Abnormal [facility] WITH [id number] 00:09:05* Test Item Value Reference Range Interpretation Comme nts WBC (test code = 6690-2) 9.64 See_Comment [Automated messa ge] The system which generated this result transmitted reference range: 4.30 - 11.10 10*3/?L. The reference range was not used to interpret this result as normal/abnormal. RBC (test code = 789-8) 4.36 See_Comment [Automated MicroTranspondera ge] The system which generated this result [...] 32.5 g/dL 31.6-35.1 RDW-SD (test code = 76956-7) 42.0 fL 39.0-49.9 RDW-CV (test code = 788-0) 13.3 % 12.0-15.5 PLT (test code = 777-3) 364 See_Comment H [Automated MicroTranspondera ge] The system which generated this result transmitted reference range: 166 - 358 10*3/?L. The reference range was not used to interpret this result as normal/abnormal. MPV (test code = 75990-9) 10.0 fL 9.5-12.9 NRBC/100 WBC (test code = 9995836849) 0.0 See_Comment [Automated gopogo ssage] The system which generated this result transmitted reference range: 0.0 - 10.0 /100 WBCs. The reference range was not used to interpret this result as normal/abnormal. NRBC x10^3 (test code = 0611776674) See_Comment [Automated MicroTranspondera ge] The system which generated this result transmitted reference range: 10*3/?L. The reference range was not used to interpret this result as normal/abnormal. GRAN MAT (NEUT) % (test code = 770-8) 72.5 % IMM GRAN % (test code = 5260166249) 0.30 % LYMPH % (test code = 736-9) 19.0 % MONO % (test code = 5905-5) 6.6 % EOS % (test code = 713-8) 1.2 % BASO % (test code = 706-2) 0.4 % GRAN MAT x10^3(ANC) (test code = 3247007280) 6.98 10*3/uL 1.88-7.09 IMM GRAN x10^3 (test code = 1038480854) 0.03 10*3/uL 0.00-0.06 LYMPH x10^3 (test code = 731-0) 1.83 10*3/uL 1.32-3.29 MONO x10^3 (test code = 742-7) 0.64 10*3/uL 0.33-0.92 EOS x10^3 (test code = 711-2) 0.12 10*3/uL 0.03-0.39 BASO x10^3 (test code = 704-7) 0.04 10*3/uL 0.01-0.07 Lab Interpretation (test code = 69464-8) Abnormal [facility] [id number] 04:43:00* Test Item Value Reference Range Interpretation Comme nts POCT PREG (test code = 1605) positive On board controls acceptable with C Line (test code = 3574) positive POCT PREG LOT # (test code = 3575) [id number] POCT PREG TEST DATE ( test code = 3576) 07/21/2023 Lab Interpretation (test cod e = 64932-6) Normal [facility] URINALYSIS W SPECIFIC [id number] 21:19:00* Test Item Value Reference Range Interpretation [...] POCT U APPEAR (test code = 3267) [facility] URINALYSIS W SPECIFIC [id number] 21:19:00* Test Item Value Reference Range Interpretation [...] POCT U APPEAR (test code = 3267) [facility] [id number] 21:40:00* Test Item Value Reference Range Interpretation Comme nts POCT PREG (test code = 1605) Positive On board controls acceptable with C Line (test code = 3574) Yes POCT PREG LOT # (test code = 3575) POCT PREG TEST DATE ( test code = 3576) [facility] URINALYSIS W/O SPECIFIC [id number] 21:34:00* Test Item Value Reference Range Interpretation [...] = 3257) negative Negative - Negati ve [facility] [id number] 08:22:00* Test Item Value Reference Range Interpretation Comme nts POCT PREG (test code = 1605) neg On board controls acceptable with C Line (test code = 3574) yes POCT PREG LOT # (test code = 3575) [id number] POCT PREG TEST DATE ( test code = 3576) 09/19/2023 Lab Interpretation (test cod e = 60104-1) [facility] [id number] 06:28:56 * Test Item Value Reference Range Interpretation Comme nts TSH (test code = 3465988601) See_Comment Biotin has been reported to cause a negative bias, interpret results relative to patient's use of biotin. [Automated message] The system which generated this result transmitted reference range: 0.45 - 4.70 mIU/L. The reference range was not used to interpret this result as normal/abnormal. Lab Interpretation (test code = 42918-1) [facility] [id number] 06:28:56 * Test Item Value Reference Range Interpretation Comme nts TSH (test code = 9823095189) See_Comment Biotin has been reported to cause a negative bias, interpret results relative to patient's use of biotin. [Automated message] The system which generated this result transmitted reference range: 0.45 - 4.70 mIU/L. The reference range was not used to interpret this result as normal/abnormal. Lab Interpretation (test code = 21905-8) Normal [facility] [id number] 19:31:00* Test Item Value Reference Range Interpretation Comme nts POCT PREG (test code = 1605) Negative On board controls acceptable with C Line (test code = 3574) Yes POCT PREG LOT # (test code = 3575) POCT PREG TEST DATE ( test code = 3576) [facility] [id number] 19:31:00* Test Item Value Reference Range Interpretation Comme nts POCT PREG (test code = 1605) Negative On board controls acceptable with C Line (test code = 3574) Yes POCT PREG LOT # (test code = 3575) POCT PREG TEST DATE ( test code = 3576) [facility] Consult Notes Date/Time Note Provider Source 2023-01-08 18:58:39 Associated Order(s): CONSULT [employer]CHETT[employer] SEWER CONSULT H&P NOTE Date of Service: 01/08/2023 Chief Complaint: Asked to see and give opinion regarding Elba Raya, 27 year old, female who presents with abdominal pain. History Elba Raya is a 27 year old female , with a hx of 4 previous c-sections and cholecystectomy and D&Cs presents to ER with worsening lower abdominal pain. She is scheduled for a D&C for SAB with possible molar on 01/11 She denies vaginal bleeding, Chest pain or SOB Work up in [place] showed normal TSH and CXR Most recent [...] History: Past Medical History: Diagnosis Date Anemia 2018 [...] N/A 09/24/2016 Surgeon: Joe Martino MD; Location: [facility] OR Location SECTION N/A 03/08/2018 Surgeon: Gloria Atkins; Location: Labor and Delivery - [place] CHOLECYSTECTOMY 2021 DILATION AND CURETTAGE (SHX) 2011 Both (Dr Martino) DILATION AND CURETTAGE (SHX) N/A 09/27/2022 Surgeon: Gillian Reno MD; Location: [facility] OR [facility] TONSILLECTOMY WITH ADENOIDECTOMY Age 2 Social History Socioeconomic History Marital status: Number of children: 2 Years of education: 11th Occupational History 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 Drug use: No Sexual activity: Yes Partners: Male control/protection: None Comment: Last intercourse: 11/19/2022 Other Topics Concern Seat Belt Yes Comment: Sometimes Social History Narrative Denies domestic or physical violence within the home Jew Preference: None Patient lives with her children, feels safe at home. Denies cats. Surgical History: Past Surgical History: Procedure Laterality Date SECTION Dr Aragon SECTION N/A 09/24/2016 Surgeon: Joe Martino MD; Location: [facility] Labor and Delivery OR Location SECTION N/A 03/08/2018 Surgeon: Gloria Atkins; Location: Labor and Delivery - [place] CHOLECYSTECTOMY 2021 DILATION AND CURETTAGE (SHX) 2010 Both (Dr Martino) DILATION AND CURETTAGE (SHX) N/A 09/27/2022 Surgeon: Gillian Reno MD; Location: [facility] OR [facility] TONSILLECTOMY WITH ADENOIDECTOMY Age 2 OB History: [...] TSH (mIU/L) Date Value 01/04/2023 1.52 Assessment/Plan: Elba Raya is a 27 year old female, with a failed but can't rule out molar presenting with abdominal pain Hcg is trending down Patient is stable Will proceed with D&C Patient last eat at 10am, will keep NPO and proceed 8 hours later as per anesthesia Procedure reviewed with patient and consent signed She already had postop appointment/beta clinic appointment in [place] on 01/18. Encouraged to keep the appointment Mariajose Ramsey MD T [facility] - Health History and Physical Notes [...] 8 (eight) hours as needed for Cough. XPITSYXVVQ-OSGWJIKGKLKFR-YHWG 50-325-40 MG TABLET Take 1 tablet by mouth every 4 (four) hours as needed (severe migraine). Use sparingly no more than 9 days per month DIAZEPAM 5 MG TABLET Take 1 tablet by mouth 2 (two) times daily as needed (severe migraine). No more than 2 days a week, 8 days a month. Do not take with butalbital or other BRIDGE TEACHER depressants DULOXETINE 30 MG CAPSULE Take [...] gestational, resolved. 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 Drug use: No Sexual activity: Yes Partners: Male control/protection: None Comment: Last intercourse: 11/19/2022 Other Topics Concern Seat Belt Yes Comment: Sometimes Social History Narrative Denies domestic or physical violence within the home Jew Preference: None Patient lives with her children, [...] complete the procedure, cardiovascular complications such as NE, stroke, arrhythmia, and . Informed consent obtained. Vasiliy Sotomayor DO Gastroenterology PGY 6 Pager#[phone] MANAGER Associated attestation - Reji Forman MD - 05/09/2024 1:09 PM SPA MANAGER I personally examined the patient on 05/09/[address] Sotomayor's resident/fellow note as written. I actively participated in the decision-making process. Please see the resident/fellow's note for additional details. Reji Forman MD [facility] Bone Process Operator Gastroenterology [facility] 2023-01-08 19:29:53 Formatting of this n ote might be different from the original. See FOURCHETTE SEWER consult note for H&P Mariajose Ramsey MD [facility] Notes Date/Time Note Provider Source 2024-07-31 16:30:00 Images from the original note were not included. Patient has been identified by and name and was provided with cup, antiseptic towelette, and clean catch instructions. 1 urine specimen(s) sent. Unpreserved Urine Culture 1 Aptima tube Other urine [facility] 2024-06-20 13:11:25 PA denied per Dispop N Iraheta RN [facility] 2024-06-19 12:58:23 Addended by: KAY FELIX on: 06/19/2024 12:58 PM Modules accepted: Orders [facility] 2024-06-19 12:57:14 Medications refilled [facility] 2024-06-16 10:51:14 PA sent 06/16/24 for lidocaine patches through [employer]. N Iraheta RN [facility] 2024-06-16 09:06:25 Images from the original note were not included. Cover My Meds Hicks: [id number] N Cannon [facility] 2024-06-07 16:53:26 Images from the original note were not included. Pt.Concern Emergency room follow up (Newest Message First) View All Conversations on this Encounter Elba Simon Rheumatology Nurse (supporting Juan Reece DO)6 days ago AM Good afternoon I was trying to see if I could try and get in sooner for a follow up visit. I just recently went to the er and they wanted me to follow up sooner then my appointment schedule to see if I can get a new plan set in place. My current meds aren t helping and dealing with a flare up for about a week now Please advise,Thank you. N Dowling LVN [facility] 2024-05-09 18:08:00 [facility]. 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 Cookie AUTOMATIC CAR WASH ATTENDANT aware N Paulson RN [facility] 2024-05-09 17:00:17 Elba Raya is a 28 year old female s/p colonoscopy. C/o abdominal pain post scope. 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 MANAGER Ana Lindo RN [facility] 2024-05-09 16:37:25 Report to charge nurse Padmini from ED Pt to go to front triage in [place] end[facility] RN notified. N Grover RN [facility] 2024-04-26 09:06:31 Prep and medication instructions sent via Fromography & email: MANAGER Danis Lay RN [facility] 2024-04-25 13:15:49 Images from the original note were not included. MANAGER Natalya Germain [facility] 2024-04-13 09:00:00 Addended by: KAY FELIX on: 04/13/2024 10:14 AM Modules accepted: Orders formerly [facility] 2024-04-11 10:51:53 Images from the original note were not included. T Natalya Germain [facility] 2024-03-01 11:15:00 Patient called from waiting area but not there yet. formerly [facility] 2024-03-01 11:15:00 Images from the original note were not included. Venipuncture collection performed by clean technique on the left anticubitus. Total of 1 attempts were made. Slight pressure and a bandage/dressing were applied to the site(s). The patient experienced no complications. The following specimens were processed according to instructions and sent to [facility] laboratories per lab order on 03/01/24: LT BLUE 1 SST RED 1 LAV PPT DK GREEN (LiHep) DK GREEN (SodH) GUIDO DK BLUE (K2) DK BLUE (S) ACD Blood Culture NIPT/NTD Patient provided with stool (hat, 2 cups, 1 parapak, 1 fecal swab) collection kit and associated instructions for home collection. formerly [facility] 2024-02-16 16:38:20 [facility] Monthly Clinical Refill Assessment Elba Raya is a 28 year old female who is followed by the [facility] specialty pharmacy service for Other Quilipta [...] address? No, the patient will pickup from [facility] Do you have any specific shipping directions? No The results of this survey will be reviewed by a specialty pharmacist and the medication order will be refilled. Thank you, Wade Morse CPhT [facility] Wade Morse CPhT [facility] - Health 2024-01-21 13:38:17 Summary: [facility] Therapy Plan Elba Raya is a 28 year old y/o /White female patient referred to the [facility] for management of Qulipta and appropriateness of therapy which is being used to treat the diagnosis of intractable chronic migraine with aura with status migrainosus. Elba Raya is Na?e to therapy. I spoke to the patient and provided education and counseling on taking Qulipta tablets. The stage of Elba Raya active disease is Other not controlled. The current specialty medication regimen is: Qulipta 60 mg tablet, take one tablet once daily in the morning will be started on: 01/25/2024 Concurrent medications used to treat intractable chronic migraine with aura with status migrainosus: Magnesium oxide 400 mg daily Rkttpajwen-vmjrsesgctthw-va ffeine 1 tab Q4H PRN Previously trialed medications: Triptans While speaking with the patient, the Specialty Pharmacist has reviewed and updated the: medication list and allergy list Patient's most recent discharge from a hospital admission related to their specialty condition: The patient has not had a recent hospitalization related to their specialty condition. The [facility] Specialty Pharmacist has reviewed: The H&P, [...] at home to receive the packaged medication. [facility] will dispense and mail out Qulipta tablets on 01/24/2024, patient will start taking on 01/25/2024. The shipping address confirmed was [address] [place] [id number]. A comprehensive Welcome Packet is accessible to all patients via the [facility]'s website. For patients who may not have internet access, a printed copy is included with their medication shipment or provided during medication pick-up. Thank you, Azalea Dotson RPH [facility] Azalea Dotson [facility] 2024-01-20 10:30:00 Images from the original note were not included. Venipuncture collection performed by clean technique on the left anticubitus. Total of 1 attempts were made. Slight pressure and a bandage/dressing were applied to the site(s). The patient experienced no complications. The following specimens were processed according to instructions and sent to [facility] laboratories per lab order on 01/20/2024 : LT BLUE SST 1 RED LAV 1 PPT DK GREEN (LiHep) DK GREEN (SodH) GUIDO DK BLUE (K2) DK BLUE (S) ACD Blood Culture NIPT/NTD Patient given stool kits with collection/drop off instructions. [facility] 2023-12-13 14:07:54 Sent patient a H2HCaret message regarding the lidocaine patches. Miroslava Raya Hope you are well. Your insurance did not approve covering lidocaine patches through the pharmacy. You can buy those over the counter if needed. Much thanks Maude Iraheta RN 12/13/2023 2:07 PM Maude Iraheta RN [facility] 2023-12-10 11:03:27 Images from the original note were not included. Printed out and put in Rhem folder Mynor Sanchez [facility] 2023-12-02 11:01:15 Radiology report from [facility]'s Printed and placed in providers box. Jodi Redding [facility] 2023-11-26 10:01:17 Images from the original note were not included. HICKS: [id number] [facility] 2023-11-24 15:00:18 PA requested and fax as below Your PA has been faxed to the plan as a paper copy. Please contact the plan directly if you haven't received a determination in a typical timeframe. You will be notified of the determination via fax. Maude Iraheta RN [facility] 2023-11-18 14:34:46 Pharmacy has been notified. Closing this encounter. Jen Plasencia RN [facility] 2023-11-18 10:31:35 8mg please not 4. [facility] 2023-11-17 14:23:18 Ms. Smith please review and advise. Did you want pt to have both doses of the ondansetron? Please let us know how you would like this handled. Thank you. Jen Plasencia RN [facility] 2023-11-16 14:13:31 Pharm requesting clarification on Rx, states they've received 2 identical orders for different strengths of the medication and needs to know which one to dispense. Please F/u ondansetron 4 mg disintegrating tablet ondansetron 8 mg disintegrating tablet [facility]/pharmacy #[id number] - [place], [place] - [address] AT [facility] Austin Grover [facility] 2023-11-16 12:00:00 Addended by: KAY FELIX on: 11/16/2023 01:04 PM Modules accepted: Orders [facility] 2023-10-27 00:55:00 Pt given printed and [...] in no apparent distress. Samara Capone RN [facility] 2023-10-26 22:53:28 Patient arrived to ED via WC c/o right knee pain. Patient states slipping at work and having her legs go under her and heard a loud pop to the right knee. Patient able to move toes and has sensation to right foot. Sha Kim RN [facility] 2023-10-26 08:20:57 I called the patient to let her know as of this morning her prior authorization is still pending. Once she is approved or declined I will give her a call. Tara Mireles [facility] 2023-10-26 07:16:14 Please review and fill [...] aerosol (ASTELIN) Class: eRX Route: Nasal Order: [id number] Date/Time Signed: 09/16/2023 10:37 E-Prescribing Status: Receipt [...] [facility] 11/12/22 Office Visit [facility]awana Jean [facility] Showing recent visits within past 540 days with a meds authorizing provider and meeting all other requirements Future Appointments No visits were found meeting these conditions. Showing future appointments within next 150 days with a meds authorizing provider and meeting all other requirements Cassie Victor RN [facility] 2023-10-25 17:12:09 Patient checking on status of Botox referral. Patient has appointment on 11/15 if we can get the referral please and do that day. Thank you! [facility] 2023-10-12 14:16:41 Follow up with Derm 10/20/23 Tamika Morillo LVN [facility] 2023-09-27 10:06:37 Refill request routed to provider for review: Requested Prescriptions Pending Prescriptions Disp Refills hydroxychloroquine (PLAQUENIL) 200 mg tablet 45 tablet 5 Sig: Take 1.5 tablets by mouth in the morning. Lrx 05/04/2023 #45+5 refill GEO 06/22/2023 Plan: Repeat labs once acute injury to left hand has resolved (falsely elevated CRP) Taper off plaquenil RTC 3-4 months to re eval after holding the Plaquenil (hydroxychloroquine), pt also requested RTC in 3-4 months Recent Visits Date Type Provider Dept 06/22/23 Office Visit Juan Reece DO [facility] 04/09/23 Office Visit Jose Craig MD [facility] Future Appointments Date Type Provider Dept 11/16/23 Appointment Juan Reece DO [facility] Nurse Visit on 08/20/2023 [...] IAT 08/13/2023 Negative BETA HCG 08/13/2023 7.37 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 It does not take into account antigen testing or any additional testing that a patient may have had outside of the [facility] medical record. COVID Results 04/27/2023 Value:SARS-CoV-2 [...] NRBC/100 WBC 05/01/2023 0.0 MAGNESIUM 05/01/2023 2.0 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 on 04/09/2023 Component Date Value Anti-B2 [...] Component Date Value FERRITIN 04/07/2023 5.6 (L) 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 on 04/07/2023 Component Date Value HSV [...] HEp-2 IIFA Pathologist Interpretation Report Patient Name: Elba Raya Antinuclear Antibody (LAST) Test (Anti-Cell Antibodies [...] patient's overall clinical presentation. References: - [place] Rosario, Bairon R, Lior J, Heriberto BARBOZA, Kris MCDUFFIE. Guidelines for clinical use of the antinuclear antibody test and tests for specific autoantibodies to nuclear antigens. [place] [employer]. Arch Pathol Lab Med. 2000;124(1):71-81. doi:10.5858/[id number]-G FCABDULKADIR - Galileo Piedra, Sebastian RIVER, Catina Lucero. Rational use of blood tests [...] Deb Lindo 09/27/2023 10:06 AM Deb Lindo [facility] 2023-09-09 08:06:35 Images from the original [...] RAMO Ramirez Last refill: 08/10/2023 Rx #: [id number] Allergy Jonass2609/09/2023 02:48 AM Protocol Details Valid encounter within last 12 months To be filled at: [facility]/pharmacy #[id number] AT [facility] Recent Visits Date Type Provider Dept 05/26/23 [...] meeting all other requirements Stacey Montenegro LVN [facility] 2023-09-07 15:48:04 Images from the original note were not included. Attempted to send to DME via [employer] file to large. Will send via right fax. Celeste Brown RN [facility] 2023-09-07 15:11:06 Received Title 19 in right fax from DME presented to Provider for signature. Will return via parachute Celeste Brown RN [facility] 2023-09-06 08:12:35 Images from the original note were not included. Requested Renewals ibuprofen 600 mg tablet Sig: Take 1 tablet by mouth every 6 (six) hours as needed for Pain (scale 1-3). Disp: 30 tablet Refills: 0 Start: 09/04/2023 Class: eRX For: Abnormal uterine bleeding Last ordered: 4 months ago (04/29/2023) by Tono Taylor MD PhD Patient comment: Acute migraines Analgesics: NSAIDS Bpnlbu8809/04/2023 09:43 PM Protocol Details Valid encounter within last 12 months Cr in normal range and within 360 days To be filled at: [facility]/pharmacy #[id number] Recent Visits Date Type Provider Dept 05/26/23 Office Visit Thais Marin PA [facility] 04/23/23 Office Visit Thais Marin PA [facility] 04/07/23 Office Visit Thais Marin PA [facility] 12/09/22 Office Visit Tawana Jean CNM [facility] 11/12/22 Office Visit Tawana Jean CNM [facility] Showing recent visits within past 540 days with a meds authorizing provider and meeting all other requirements Future Appointments Date Type Provider Dept 09/08/23 Appointment Thais Marin PA [facility] Showing future appointments within next 150 days with a meds authorizing provider and meeting all other requirements Stacey Montenegro LVN [facility] 2023-08-30 15:16:31 Per INDUSTRIAL [employer]CHANIC , RX refilled GEO 08/16/23 Julianne Liz MA [facility] 2023-08-27 09:12:49 Refill request source: Pharmacy auto refill system Refill request will need to be from patient. MANAGER Noris Stringer RN [facility] 2023-08-26 16:33:42 Esgic refilled MANAGER [facility] 2023-08-13 17:10:18 PT D/C home. GCS15, VS stable. Given D/C paperwork. Pt ambulatory at time of discharge. Pt educated on med usage, follow up care, s/s worsening condition, need for hydration. Pt verbalized understanding. Pt ambulated from ED in [facility] MANAGER Rosalinda Andino RN [facility] 2023-08-13 14:33:12 Patient reports vaginal bleeding that started last night. Patient is and was scheduled for first OB appointment today. Told to come straight to the ED. G10 P 4 A5 MANAGER Adele Melendez RN [facility] 2023-08-13 14:15:00 [facility] Emergency Department Note Patient Name: Elba Raya Date of : 1995 27 year old female Treatment Room: [facility] ED [facility] Primary Care Physician: Thais Marin Patient Escorted by: Mode of Arrival: Personal means [1] EMS Treatment Prior to ED Arrival: HUMAN RESOURCES OPERATIONS SPECIALIST treatment: None Travel and Exposure Screening: Symptoms [...] gestational, resolved. 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 Irregular menstrual cycle 04/03/2022 Observed seizure-like activity [...] N/A 09/24/2016 Surgeon: Joe Martino MD; Location: [facility] Labor and Delivery OR Location SECTION N/A 03/08/2018 Surgeon: Gloria Atkins; Location: Labor and Delivery - [place] CHOLECYSTECTOMY 2021 DIAGNOSTIC LAPAROSCOPY N/A 01/08/2023 Surgeon: Mariajose Ramsey MD; Location: [facility] OR LOCATION DILATION AND CURETTAGE (SHX) 2010 Both (Dr Martino) DILATION AND CURETTAGE (SHX) N/A 09/27/2022 Surgeon: Gillian Reno MD; Location: [facility] DILATION AND CURETTAGE (SHX) N/A 01/08/2023 Surgeon: Mariajose Ramsey MD; Location: [facility] HYSTEROSCOPY N/A 01/08/2023 Surgeon: Mariajose Ramsey MD; Location: [facility] HYSTEROSCOPY WITH DILATATION AND CURETTAGE (SHX) N/A 04/26/2023 Surgeon: Yolanda Baca MD; Location: [facility] LAPAROSCOPIC LYSIS OF ADHESIONS (SHX) N/A 01/08/2023 Surgeon: Mariajose Ramsey MD; Location: [facility] LAPAROSCOPIC OVARIAN CYST ASPIRATION Left 01/08/2023 Surgeon: Mariajose Ramsey MD; Location: [facility] TONSILLECTOMY WITH ADENOIDECTOMY Age 2 Review of [...] 0.01 - 0.07 10*3/uL COMP. METABOLIC PANEL (18303) NA 139 135 - 145 mmol/L K [...] Procedures CBC WITH DIFF COMP. METABOLIC PANEL (48156) URINALYSIS Type and Screen - ONCE STAT TOTAL BETA HCG ASSAY No orders of the defined types were placed in this encounter. First Provider Eval: ED Events Date/Time Event User Comments 08/13/23 1435 Medical Screening Begins BOGDAN GABRIEL -- 08/13/23 1435 First Provider Evaluation BOGDAN GABRIEL -- ED COURSE Diagnosis/Impression as of 08/13/23 1630 Vaginal bleeding Threatened Vaginal bleeding affecting early Procedures: Procedures MDM: Medical Decision Making This patient presents with vaginal bleeding in the first trimester. DDX includes ectopic, IUP, threatened/inevitable , along with completed . Patient is HDS and without a history of coagulopathy or infectious symptoms. Doubt alternate acute emergent pathology. Plan: bHCG, +/- basic labs, type and screen, TVUS, reassess [facility] 7-no indication for transvaginal ultrasound at this [...] for follow-up Thais Marin PA Specialty: PA-PHYSICIAN SHINGLE GRADER, FM-FAMILY MEDICINE Relationship: PCP - General [facility] [address] [facility] [id number] Electronically signed by: Bogdan Gabriel DO 08/13/23 1630 [facility] 2023-08-13 11:08:01 Called pt regarding mychart message. Pt reports heavy vaginal bleeding since midnight. Denies soaking more than 1 pad an hour. Pt reports severe abdominal pain 01/28. No relief with tylenol. Pt denies fever. Pt reports body aches and chills. Advised will need to be evaluated by ER. Strict er warnings given. Pt verbalized understanding. Deann Grover RN 08/13/23 11:09 AM MANAGER Deann Grover RN [facility] 2023-08-11 13:33:24 Called and spoke with pt and advised per Dr. Kirk: "Ok to continue on Imitrex as instructed. ( Max 2 /day, 9/month)" Elba verbalized understanding. MANAGER Mary Yu RN [facility] 2023-08-10 14:50:30 Ok to continue on Imitrex as instructed. ( Max 2 /day, 9/month) MANAGER PN-NEUROLOGY STAFF [facility] 2023-08-10 08:31:13 Called patient, no answer, unable to leave a VM. MANAGER Mary Yu RN [facility] 2023-08-09 09:19:43 Elba Raya is a 27 year old female Pt calling she recently tested positve for via home test pt will see OB doctor soon. Pt asking can she take SUMAtriptan (IMITREX) 50 mg tablet. Please advise. MANAGER Jesus Price [facility] 2023-08-03 18:13:00 She should be in therapy now Jose C Wellington MD, FAAOS Board Certified Orthopedic Surgery Subspecialty Certified in Hand Surgery. Urgent Care Nurse Practitioner, Department of Orthopedic Surgery and Rehabilitation. MANAGER [facility] 2023-08-02 14:07:58 Scheduled an appointment with Jose C Wellington MD on 08/25/23 N [place] [facility] 2023-08-02 12:08:20 Per last encounter documentation, "Morro Arreola suggested you call and we can have you see Dr. Wellington sooner to discuss possible surgery. If you would like to do this, please call us at [phone] Thank you Noris ALEXANDRE, BSN [facility] Orthopedics [facility] P: [phone] F: [phone] Last read by Elba Raya at 11:54 AM on 08/02/2023." Routing to [facility] for assistance with appointment. No nurse triage required. MANAGER Noris Stringer RN [facility] 2023-08-02 12:02:43 Elba Raya is a 27 year old female [place], Pt returning nurse call about a sooner appointment with Dr. Wellington. Please contact at [phone] (home) MANAGER Yolanda Sosa [facility] 2023-08-02 10:27:19 Orthopedic Nurse Documentation GEO: 07/29/23 Follow up date: 09/08/[address] Wellington Documentation Received [place] [address] message: "I was wondering if I had [...] in it makes it swell up" Assessment/Diagnosis: Elba Raya is a 27 year old female [...] time of this call [] Preferred Pharmacy: [id number] - [place] - [facility] [address] AT [facility] Insurance: Payor: [place] - MANAGED MEDICAID / Plan: [place] ST[place] / Product Type: Medicaid / Recent/Future Schedule Appointments at the time of this encounter Recent Visits Date Type Provider Dept 07/29/23 Office Visit Morro Michael DNP [facility] 07/07/23 Office Visit Jose C Wellington MD [facility] 06/23/23 Office Visit Jose C Wellington MD [facility] Showing recent visits within past 365 days and meeting all other requirements Future Appointments Date Type Provider Dept 09/08/23 Appointment Jose C Wellington MD [facility] Showing future appointments within next 365 days and meeting all other requirements N Stringer RN [facility] 2023-07-29 15:00:00 Images from the original note were not included. Venipuncture collection performed by clean technique on the left anticubitus. Total of 1 attempts were made. Slight pressure and a bandage/dressing were applied to the site(s). The patient experienced no complications. The following specimens were processed according to instructions and sent to [facility] laboratories per lab order on 07/29/23: LT BLUE 3 SST RED 2 LAV PPT DK GREEN (LiHep) DK GREEN (SodH) GUIDO DK BLUE (K2) DK BLUE (S) ACD Blood Culture NIPT/NTD Patient has been identified by and was provided with cup, antiseptic towelette, and clean catch instructions. 1 urine specimen(s) sent. 1 Unpreserved Urine Culture Aptima tube Other urine MANAGER [facility] 2023-07-26 16:58:22 Images from the original note were not included. New start DME The following has been sent to the provider for completion via paracte/FAX Orders pended for [employer] Prescription for CPAP Sleep study /data report dated - 06-03-2023 10.6 Demographics - Face sheet Insurance Information Progress Notes from office visit prior to sleep study - 05-26-2023 Follow up due 31-90 days following initiation of any device. MANAGER Celeste Brown RN [facility] 2023-07-21 08:11:06 Last Refilled: Disp Refills Start End JULIAN azelastine 137 mcg (0.1 %) nasal spray 30 mL 0 05/26/2023 -- -- Sig: Use 1 [place] in each nostril in the morning and 1 [place] in the evening. Use in each nostril as directed Sent to pharmacy as: azelastine 137 mcg (0.1 %) nasal spray aerosol (ASTELIN) Class: eRX Route: Nasal Order: [id number] Date/Time Signed: 05/26/2023 14:57 E-Prescribing Status: Receipt confirmed by pharmacy (05/26/2023 2:57 PM SPA MANAGER) Notes: Recent Visits Date Type Provider Dept [...] authorizing provider and meeting all other requirements N Victor RN [facility] 2023-07-02 13:54:11 Notified the patient of [...] Name of partner:Amara Galarza :03/28/1991 NKDA: Phone number:[phone] [facility] [place]: [phone] Offered std pamphlet for partner education. Patient declinedstd pamphlet to be mailed to partner. Advised patient on HIV testing if she has not recently been tested. Pt verbalized understanding. Called patient, notified positive for BV. Educated patient on antibiotics, daily probiotics, and BV prevention measures. Pt verbalized understanding. Deann Grover RN 07/02/23 1:55 PM MANAGER Deann Grover RN [facility] 2023-07-02 12:10:00 Please call patient and let her know she has both BV and trich. I sent flagyl erx which will treat both. Her partner also needs treatment. You can call in Flagyl 2000 mg PO once. [facility] 2023-06-22 11:19:41 Contacted Dorothea Coppola for assistance with appointment. Appointment scheduled with Dr. Wellington. N Stringer RN [facility] 2023-06-22 09:22:51 Elba Raya is a 27 year old female Patient is calling stating per her discharge summary she is suppose to have an gab with Dr. Wellington tomorrow Wed 06.23.23. Please assist. [phone] (home) N [place] [facility] 2023-06-21 19:45:00 Pt given printed and [...] w/d, pt leaving in no apparent distress, MANAGER Carlo Sevilla RN [facility] 2023-06-21 18:09:34 Pt arrived via private car with c/o left hand- index, middle and ring finger. States she was making a cheese cake and her "hand got caught in the mixer." [facility] 2023-01-25 23:27:27 Formatting of this n ote [...] with steady gait, in no apparent distress, Ayde Harper RN [facility] 2023-01-25 21:29:25 Formatting of this n ote might be different from the original. Pt had a D&C . POCT is negative. PMX: Gallbladder removed 12/2021 Bianca Pate RN [facility] 2023-01-25 20:58:23 Formatting of this n ote might be different from the original. Right lower abdominal pain radiating to right flank/back for 3 days. Pain started intermittently but now is constant. Pain originated in the abdomen. Denies any vaginal discharge or blood in urine. Elizabeth Chand RN [facility] 2023-01-25 20:49:00 Associated Order(s): EKG-12 Lead ONCE Pre-Procedure Diagnose(s): Acute low back pain without sciatica, unspecified back pain laterality Post-Procedure Diagnose(s): Acute low back pain without sciatica, unspecified back pain laterality [facility] Emergency Department Note Patient Name: Elba Raya Date of : 1995 27 year old female Treatment Room: ND1/ND1 Primary Care Physician: Tawana Jean Patient Escorted by: Self [9] Mode of Arrival: Personal means [1] EMS Treatment Prior to ED Arrival: HUMAN RESOURCES OPERATIONS SPECIALIST treatment: Analgesic HUMAN RESOURCES OPERATIONS SPECIALIST treatment comments: 1730- 800 mg Ibuprofen, Tylenol [...] N/A 09/24/2016 Surgeon: Joe Martino MD; Location: [facility] Labor and Delivery OR Location SECTION N/A 03/08/2018 Surgeon: Gloria Atkins; Location: Labor and Delivery - [place] CHOLECYSTECTOMY 2021 DIAGNOSTIC LAPAROSCOPY N/A 01/08/2023 Surgeon: Mariajose Ramsey MD; Location: [facility] OR [facility] DILATION AND CURETTAGE (SHX) 2011 Both (Dr Martino) DILATION AND CURETTAGE (SHX) N/A 09/27/2022 Surgeon: Gillian Reno MD; Location: [facility] OR [facility] DILATION AND CURETTAGE (SHX) N/A 01/08/2023 Surgeon: Mariajose Ramsey MD; Location: [facility] OR [facility] HYSTEROSCOPY N/A 01/08/2023 Surgeon: Mariajose Ramsey MD; Location: [facility] LAPAROSCOPIC LYSIS OF ADHESIONS (SHX) N/A 01/08/2023 Surgeon: Mariajose Ramsey MD; Location: [facility] LAPAROSCOPIC OVARIAN CYST ASPIRATION Left 01/08/2023 Surgeon: Mariajose Ramsey MD; Location: [facility] TONSILLECTOMY WITH ADENOIDECTOMY Age 2 Review of [...] ABDOMEN PELVIS WO CONTRAST Final Result ORDERING PHYSICIAN:MARIANN JOHN CLINICAL INFORMATION: Abdominal pain, acute, nonlocalized [...] 0 - 220 U/L COMP. METABOLIC PANEL (81780) NA 139 135 - 145 mmol/L K [...] TEST CBC WITH DIFF COMP. METABOLIC PANEL (24422) LIPASE Orders Placed This Encounter Medications morpHINE (4 mg/mL) injection 4 mg ondansetron (ZOFRAN (PF)) injection 4 mg First Provider Eval: ED Events None No notes of EC Admission Criteria type on file. ED COURSE Diagnosis/Impression as of 01/25/23 2319 Acute low back pain without sciatica, unspecified back pain laterality Procedures: EKG-12 Lead ONCE Date/Time: 01/25/2023 11:02 PM Performed by: Mariann John MD Authorized by: Mariann John MD ECG reviewed by ED Physician in the absence of a oral and maxillofacial surgeon: yes Previous ECG: Previous ECG: Unavailable Interpretation: [...] on file Follow-up: PCP Electronically signed by: Mariann John MD 01/25/23 2312 [facility] 2023-01-20 15:56:59 Formatting of this n ote might be different from the original. Pt was seen on 01/18. DANIS BROWN RN 01/20/2023 3:57 PM Danis Brown RN [facility] 2023-01-18 16:29:22 Formatting of this n [...] with steady gait, in no apparent distress. formerly [facility] 2023-01-18 14:34:05 Formatting of this n ote might be different from the original. Pt arrived via private car with c/o left upper arm pain and intermittent swelling that has been ongoing since 01/08/2023 post surgery. 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 formerly [facility] 2023-01-18 14:31:00 Formatting of this n ote is different from the original. [facility] Emergency Department Note Patient Name: Elba Raya Date of : 1995 27 year old female Treatment Room: [place] [address] Primary Care Physician: Tawana Jean Patient Escorted [...] N/A 09/24/2016 Surgeon: Joe Martino MD; Location: [facility] Labor and Delivery OR Location SECTION N/A 03/08/2018 Surgeon: Gloria Atkins; Location: Labor and Delivery - [place] CHOLECYSTECTOMY 2021 DIAGNOSTIC LAPAROSCOPY N/A 01/08/2023 Surgeon: Mariajose Ramsey MD; Location: [facility] DILATION AND CURETTAGE (SHX) 2010 Both (Dr Martino) DILATION AND CURETTAGE (SHX) N/A 09/27/2022 Surgeon: Gillian Reno MD; Location: [facility] DILATION AND CURETTAGE (SHX) N/A 01/08/2023 Surgeon: Mariajose Ramsey MD; Location: [facility] HYSTEROSCOPY N/A 01/08/2023 Surgeon: Mariajose Ramsey MD; Location: [facility] LAPAROSCOPIC LYSIS OF ADHESIONS (SHX) N/A 01/08/2023 Surgeon: Mariajose Ramsey MD; Location: [facility] OR LOCATION LAPAROSCOPIC OVARIAN CYST ASPIRATION Left 01/08/2023 Surgeon: Mariajose Ramsey MD; Location: [facility] OR LOCATION TONSILLECTOMY WITH ADENOIDECTOMY Age 2 [...] Medical Screening Begins DEB BENAVIDEZ DO -- 01/18/231448 First Provider Evaluation DEB BENAVIDEZ DO -- No notes of Admission Criteria type on file. ED COURSE [...] Electronically signed by: Deb Benavidez DO 01/18/23 1622 T [facility] 2023-01-18 09:30:00 Addended by: ABHINAV WATTERS on: 01/18/2023 12:55 PM Modules accepted: Orders formerly [facility] 2023-01-09 10:30:20 Formatting of this n ote [...] Absence of infection Outcome: Progressing as expected [facility] Lala Hoang RN [facility] 2023-01-09 01:47:43 Formatting of this n [...] Absence of infection Outcome: Progressing as expected formerly [facility] 2023-01-08 19:50:00 Formatting of this n ote [...] 605 cc Fluid Deficit: 485 cc Indication: Elba Raya is a 27 year old female, 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 Mariajose Ramsey MD [facility] 2023-01-08 13:08:30 Formatting of this n ote might be different from the original. Patient reported (after morphine administration) that she always itches after I.V. morphine. Provider notified and 25mg. Of Benadryl I.V. administered. Patient states she has no itching shortly after administration of benadryl. No wheezing, oral/facial edema or hives noted at any time. Amanda Collier RN [facility] 2023-01-08 10:27:12 Formatting of this n ote might be different from the original. Patient states: "They diagnosed me with a molar (9 weeks ). I'm suppose to have the terminated on Wednesday. Last night I started getting worse back pain and pelvic pain. " Denies vaginal bleeding. Jamie Vallecillo RN [facility] 2023-01-08 10:20:00 Formatting of this n ote is different from the original. [facility] Emergency Department Note Patient Name: Elba Raya Date of : 1995 27 year old female Treatment Room: [place] [address] Primary Care Physician: Tawana Jean Patient Escorted by: Self [9] Mode of Arrival: Personal means [1] EMS Treatment Prior to ED Arrival: HUMAN RESOURCES OPERATIONS SPECIALIST treatment: None Travel and Exposure Screening: Symptoms [...] yesterday and today. Ate breakfast this morning, HUMAN RESOURCES OPERATIONS SPECIALIST about 10 AM History provided by: Patient associate dean of women used: No Past Medical History/Immunizations: Past Medical [...] N/A 09/24/2016 Surgeon: Joe Martino MD; Location: [facility] Labor and Delivery OR Location SECTION N/A 03/08/2018 Surgeon: Gloria Atkins; Location: Labor and Delivery - [place] CHOLECYSTECTOMY 2021 DILATION AND CURETTAGE (SHX) 2010 Both (Dr Martino) DILATION AND CURETTAGE (SHX) N/A 09/27/2022 Surgeon: Gillian Reno MD; Location: [facility] TONSILLECTOMY WITH ADENOIDECTOMY Age 2 Review of [...] 0.01 - 0.07 10*3/uL COMP. METABOLIC PANEL (12003) - Abnormal NA 136 135 - 145 [...] Procedures CBC WITH DIFF COMP. METABOLIC PANEL (01028) LIPASE URINALYSIS Type and Screen - ONCE STAT TOTAL BETA HCG ASSAY CONSULT ELECTRONIC SCALE TESTER Orders Placed This Encounter Medications NaCl 0.9% [...] patient and wanted me to call Anesthesia information technology consultant, which I did and was made aware [...] [place] FNP 01/08/23 1332 Associated attestation - Joaquim Torres DO - 01/09/2023 8:17 AM CDT I was personally available for consultation in the Emergency Department during this Patient evaluation/encounter. I have no professional relationship with this patient and did not establish a patient-doctor relationship with them. I am only administratively signing the chart. Joaquim Torres DO [facility] Emergency Medicine [facility] 2023-01-06 08:07:30 Formatting of this n ote is different from the original. Name/ MRN / Age / Gender: Elba Raya, [id number] 27 year old female BMI: Estimated body [...] 01/02/23 100% Date of Surgery: 01/11/2023 Surgeon: Yolanda Baca MD Procedure: DILATION AND CURETTAGE (Vagina) OR Location: [facility] OR LOCATION Anesthesia Preop Screen (no physical exam) Copied forward and updated from: 09/27/2022 Anesthesia Preop: Chart Review and Phone Preop APAC questionnaire answers incorporated [facility] Communication: Patient came to ED at [facility]. Ate @ 10 am full [...] pt call, Spoke with pt to complete [facility] eval. All questions answered and [facility] evaluation updated. Ese Puga RN 01/06/2023 12:17 [...] Year (-) Patient does not report prior NE (-) CAD (-) Valvular problems/murmurs (-) Dysrhythmias [...] use (marijuana use pt denies) (-) HIV ELECTRONIC SCALE TESTER Comments: Cc: Molar (+) Ovarian cyst left [...] to surgery. Hold on DOS. 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 Post-Operative Analgesia: routine analgesia & antiemetics Recovery Plan: PACU Additional comments: AN-ANESTHESIOLOGY ANESTHESIOLOGIST [facility] 2022-12-17 04:46:00 [facility] ([facility]) EMERGENCY PROVIDER REPORT REPORT#:[id number] REPORT STATUS: Signed DATE:12/17/22 TIME:6 PATIENT: ELBA RAYA UNIT #: [id number] ROOM/BED: : 93 AGE: 27 SEX: F PCP PHYS: No Primary or Family Physician SERVICE AUTHOR: Gurmeet Teran MD * ALL edits or amendments must be made on the electronic/computer document * Gurmeet Montero 12/17/22 0446: HPI- Female Free Text HPI Notes Free Text HPI Notes 27-year-old female at unknown gestation presents to the [...] Patient denies vaginal discharge, nausea vomiting diarrhea. General Initial Greet Date/Time 12/17/22 0417 Presentation Chief Complaint Pelvic pain, Vaginal bleeding Hx Obtained From Patient )( Sudden in Onset? No Risk- Female Risk Stratification Ectopic Risk factors reviewed Review of Systems ROS Statements All systems rev neg except as marked. Focused Review of Systems Constitutional Denies: Chills, Fever, Lethargy. GI Denies: Abdominal pain, Diarrhea, Nausea, Vomiting. Female Reports: Pelvic pain, , Vaginal bleeding - abnl. Denies: Dysuria, Flank pain. Musculoskeletal Denies: Back pain, Extremity pain. Endocrine Denies: Polyuria, Weight loss. Skin Denies: Diaphoresis, Rash. Neurologic Denies: Change LOC, Dizziness, Focal weakness, Headache, Numbness, Slurred speech. Past Medical History - Adult Stated Complaint , BLEEDING, STOMACH PAIN Allergies Coded Allergies: No Known Allergies (12/17/22) Calculated Suicide Risk (nurs) No risk Smoking status for patients 13 years old or older: Never Smoker Physical Exam Vital Signs Review of Vital Signs Reviewed Focused PE General/Const General/Const Awake, Alert, Well appearing Resp/Chest Respiratory/Chest Breath sounds NL, Breath sounds = bilat, No respiratory distress, No rales, No rhonchi, No wheezing Cardiovascular Cardiovascular Heart rate NL, Regular rhythm, Heart sounds NL, Peripheral circulation NL Abdomen/GI Abdomen/GI Soft, No guarding, No rebound Text/Dict Notes Mild diffuse pelvic tenderness to palpation no rebound or guarding MS Back Back Inspection NL, Non-tender, No CVA tenderness Skin Skin Color NL, No rash, Warm, Dry, Turgor NL Genitourinary General Exam deferred Patient Discharge Departure Pt/Provider Handoff Shift Change Note This patient's care has been transferred to the incoming physician. We discussed : the patient's chief complaint; labs and imaging [...] and provide a final disposition. Care Transferred to Dr. Valdovinos Care Transferred at 0700 Saad Valdovinos 12/17/22 0918: Physical Exam Vital Signs Vital Signs First Documented: Result Date Time Pulse Ox 100 [...] 16 12/17 0940 Temp 36.5 12/17 0526 Interpretation Diagnostics Lab Results Interpretation Results Laboratory Tests 12/17/22448: [Embedded Image Not Available] Laboratory Tests: 12/17 448 Chemistry Sodium (134 - [...] (Auto) (20.5 - 51.1 %) 17.5 L Fountain % (Auto) (1.7 - 9.3 %) 6.6 Eos % (Auto) (0.0 - 6.0 %) 0.5 Baso % (Auto) (0.0 - 2.0 %) 0.3 Neut # (Auto) (1.8 - 7.6 K/mm3) 8.7 H Lymph # (Auto) (0.6 - 3.2 K/mm3) 2.0 Fountain # (Auto) (0.3 - 1.1 K/mm3) 0.8 [...] Maternal Serum HCG (0 - 6 mi-IU/ML) 57458 H Re-Evaluation MDM Re-Evaluation/Progress Re-Evaluation/Progress Time of Re-Eval 917 Re-Eval Status Improved ED Course Medication(s) Ordered Medication(s) Ordered: Central Nervous System Agents Sig/Kelsi Start time Last Medication Dose Route Stop Time Status Admin Hydrocodone Bitart/ 2 TAB X1ED STA 12/18 927 DC 12/17 Acetaminophen PO 12/17 928 0935 Ketorolac 15 MG X1ED STA 12/17 926 DC 12/17 Tromethamine IV 12/18 927 0935 Acetaminophen 1,000 MG X1ED STA 12/17 0433 DC PO 12/17 0434 Electrolytic, Caloric, And Heather Sig/Kelsi Start time Last Medication Dose Route Stop Time Status Admin Lactated Ringer's 1,000 ML X1ED STA 12/17 0432 DC 12/17 IV 12/17 0532 0456 Free Text MDM Notes Free Text MDM Notes Signed out to me with plan for disposition after ultrasound. Patient was found to have a failed . 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 She states that she has needed surgical evacuation every time. She categorically declines medical management given prior experiences. She does not want me to speak to OB /FOURCHETTE SEWER consult, and prefers immediate discharge with outpatient management with her longstanding ELECTRONIC SCALE TESTER. Differential diagnosis includes but is not limited to the following diagnoses - Ectopic, , threatened miscarriage - Perforated gastric ulcer - Pancreatitis, DKA - SBO, volvulus, intestinal ischemia - Cholangitis, acute cholecystitis - Appendicitis, diverticulitis - Pyelonephritis, nephrolithiasis, torsion - Anterior Cutaneous Nerve Entrapment Syndrome ----- Conversation with Qualified Health Professional: I discussed the case with radiology who notified me of the failed Patient Discharge Departure Vital Signs/Condition Vital Signs First Documented: Result Date Time Pulse Ox 100 12/17 416 B/P 122/95 12/177 B/P Mean 104 12/17 0417 O2 Delivery Room air 12/17 416 Temp 36.5 12/17 416 Pulse 96 12/17 0417 Resp 17 12/17 416 Last Documented: Result Date Time Pulse Ox 100 12/18 939 B/P 124/84 12/18 939 B/P Mean 97 12/18 939 O2 Delivery Room air 12/18 939 Pulse 82 12/18 939 Resp 16 12/18 939 Temp 36.5 12/17 0526 All vital signs available at the time of this entry have been reviewed. Clinical Impression Clinical Impression Primary Impression: Miscarriage Disposition Decision Discharge )( Discharged to Home Yes )( Time 926 )( Date 12/17/22 Discharge/Care Plan Counseled Regarding Diagnosis, Lab results, Imaging studies, Need for follow-up, When to return to ED Rx Drug Database Reviewed Yes (Auto) Prescriptions Current Visit Scripts KETOROLAC (TORADOL) 10 MG PO Q8H PRN PRN PAIN KETOROLAC (TORADOL) 10 MG PO Q8H PRN PRN PAIN #15 TABS HYDROcodone/APAP (HYDROcodone/APAP 7.5/325) 1 TAB PO Q4H HYDROcodone/APAP (HYDROcodone/APAP 7.5/325) 1 TAB PO Q4H #15 TABS Patient Instructions ED Miscarriage Spontaneous Additional Instructions As we discussed, you had a miscarriage. You wanted to follow-up as an outpatient with your ELECTRONIC SCALE TESTER doctor. Fortunately, there is no evidence of a dangerous cause/complications that require further testing/treatment in the ER or hospital at this time. Please return for any concerns including new, worsening, or persistent symptoms and follow up with your doctor. at 0930 at 1607 [facility] #: [id number] END OF REPORT HCAPM
[2024-08-20 17:16] LABS: Specific Gravity 1.024 (1.005-1.030); Urine Bacteria None Seen /HPF (<20); Urine Bilirubin NEGATIVE (Negative); Urine Blood Trace (Negative); Urine Clarity Extremely Turbid (Clear); Urine Color Light-Yellow (Yellow); Urine Crystals Unidentified Few /HPF (None Seen); Urine Culture Reflex Order REFLEXED; Urine Glucose NEGATIVE (Negative); Urine Ketones NEGATIVE (Negative); Urine Micro Reflex YN NO BILL MICROSCOPIC; Urine Mucus 1+ /HPF (None Seen); Urine Nitrite NEGATIVE (Negative); Urine Protein TRACE (Negative); Urine Urobilinogen Normal (Normal); Urine WBC 20-50 /HPF (<5); Urine WBC Clump Rare /HPF (None Seen); Urine Yeast (Budding) Trace /HPF (None Seen)
[2024-08-20 17:20] LABS: Specific Gravity 1.024 (1.005-1.030)
[2024-08-20 17:25] LABS: Barbiturates NEGATIVE (NEGATIVE); Benzodiazepines NEGATIVE (NEGATIVE); Cocaine NEGATIVE (NEGATIVE); METHAMPHETAM NEGATIVE (NEGATIVE); Methadone NEGATIVE (NEGATIVE); Opiates NEGATIVE (NEGATIVE); Phencyclidine NEGATIVE (NEGATIVE); THC Cannibis NEGATIVE (NEGATIVE)
[2024-08-20 17:27] LABS: Absolute Eosinophils 0.1 K/uL (0-0.5); Absolute Lymphocytes (CBC) 1.9 K/uL (0.7-4.9); Absolute Monocytes 0.7 K/uL (0.1-1.3); Absolute Neutrophil 5.7 K/uL (1.8-8.0); Basophils % 0.5 % (0-1.3); Eosinophils % 1.5 % (0-4.4); Hematocrit 33.6 % (36.0-45.0); Hemoglobin 10.9 g/dL (12.0-15.0); MCH 26.3 pg (27.0-35.0); MCHC 32.5 g/dL (32.0-36.0); MCV 80.7 fL (80-100); MPV 8.1 fL (7.6-11.3); Monocytes % 8.8 % (3.3-12.3); Neutrophils % 67.2 % (41.7-73.7); Platelets 403 thou/uL (152-406); RBC Red Blood Cell Count 4.17 M/uL (3.86-4.86); Red Cell Distribution Width 16.3 % (12.1-15.2)
[2024-08-20] MEDS ORDERED: KETOROLAC 30 MG/ML INJ ONE (17:27)
[2024-08-20] MEDS ORDERED: METOCLOPRAMIDE 10 MG/2mL INJ ONE (17:28)
[2024-08-20] MEDS ORDERED: NA CHLORIDE 0.9% 1,000 ML ONE (17:28)
[2024-08-20] MEDS ORDERED: DIPHENHYDRAMINE 50 MG/ML VIAL ONE (17:28)
--- NOTE | 2024-08-20 17:33 | RAD REPORT ---
EXAM: CT brain without contrast HISTORY: Dizziness;Headache COMPARISON: 08/26/2023 TECHNIQUE: Multiple contiguous axial images were obtained and a CT of the brain without contrast. Sag ittal and coronal reformats were performed. One or more of the following dose reduction techniques were used: Automated exposure control, adjust ment of the mA and/or kV according to patient size, and/or iterative reconstruction. FINDINGS: No evidence of hydrocephalus, intracranial hemorrhage, or extra-axial fluid collection. The brain is normal in morphology. No evidence of midline shift or areas of brain edema. The calvarium is intact. The visualized paranasal sinuses and mastoid air cells are essentially clear . IMPRESSION: No evidence of acute intracranial abnormality.
[2024-08-20 17:42] LABS: Anion Gap 5.5 mEq/L (5.0-15.0); Potassium 3.5 mEq/L (3.5-5.1)
--- NOTE | 2024-08-20 18:08 | EDPHYS ---
Physician Documentation [facility] Name: Elba Wells Age: 28 yrs Sex: Female : 1995 Arrival Date: 08/20/2024 Time: 16:19 Bed 18 Private MD: ED Physician Merrick Pina HPI: 08/20 17:38 This 28 yrs old Female presents to ER via Ambulatory with complaints of sb4 Dizziness, Headache. 17:44 Patient reports history of migraines, is on several medications, does see a sb4 neurologist. States that she has had a migraine for the past 2 days that she cannot get rid of. States that it is causing her several dizzy spells, which is not usual for her headaches. She states that she fell down yesterday because she was so dizzy. States that she started experiencing nausea and vomiting today. 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 - Infectious Disease History:: Denies. - Social history:: Smoking status: Patient denies any tobacco usage or history of. ROS: 17:44 Constitutional: Negative for fever, chills, and weight loss, sb4 17:44 Abdomen/GI: Positive for nausea and vomiting, 17:44 Neuro: Positive for dizziness, headache, 17:44 All other systems are negative, Exam: 17:44 Constitutional: This is a well developed, well nourished patient who is awake, alert, sb4 and in no acute distress. Head/Face: Normocephalic, atraumatic. Eyes: Extra-ocular motions intact. Periorbital areas with no swelling, redness, or edema. ENT: Mucous membranes moist. Cardiovascular: Regular rate and rhythm with a normal S1 and S2. Respiratory: No increased work of breathing, no retractions or nasal flaring. Abdomen/GI: Soft, non-tender, no distension. Skin: Warm, dry with normal turgor. Normal color with no rashes, no lesions, and no evidence of cellulitis. MS/ Extremity: Pulses equal, no cyanosis. Neurovascular intact. Full, normal range of motion. Neuro: Awake and alert, GCS 15, oriented to person, place, time, and situation. Motor strength 5/5 in all extremities. Sensory grossly intact. Vital Signs: 16:34 BP 139 / 71; Pulse 72; Resp 18; Temp 98.1; Pulse Ox 99% ; Weight 89.81 kg; Height 5 ft. iw 7 in. ; Pain 10/10; 18:56 BP 128 / 68; Pulse 76; Resp 16; Temp 98.4; Pulse Ox 99% ; me1 16:34 Body Mass Index 31.01 (89.81 kg, 170.18 cm) iw 16:34 Pain Scale: Adult iw MDM: 16:29 Medical Screening Exam initiated sb4 18:07 Data reviewed: vital signs, nurses notes, lab test result(s), radiologic studies, and sb4 as a result, I will discharge patient. Counseling: I had a detailed discussion with the patient and/or guardian regarding the historical points, exam findings, and any diagnostic results supporting the discharge/admit diagnosis, the presence of at least one elevated blood pressure reading (>120/80) during this emergency department visit, lab results, radiology results, the need for outpatient follow up, for definitive care, to return to the emergency department if symptoms worsen or persist or if there are any questions or concerns that arise at home. 08/20 16:45 Order name: CBC with Diff; Complete Time: 17:34 sb4 08/20 16:45 Order name: BMP; Complete Time: 17:42 sb4 08/20 17:09 Order name: UDS; Complete Time: 17:25 jl7 08/20 17:09 Order name: UAM; Complete Time: 17:19 jl7 08/20 17:13 Order name: Test, Urine; Complete Time: 17:21 jl7 08/20 17:20 Order name: Urine Culture EDAK 08/20 16:45 Order name: Head Brain Wo Cont CT; Complete Time: 17:34 sb4 08/20 16:45 Order name: IV Start; Complete Time: 17:21 sb4 Administered Medications: 17:45 Drug: NS 0.9% IV 1000 ml IV at 1000 ml once; to be given as a bolus over 60 minutes me1 Route: IV; Rate: 1000 ml; Site: left antecubital; 18:58 Follow up: Response: No adverse reaction; IV Status: Completed infusion; IV Intake: me1 1000ml 17:46 Drug: Ketorolac IVP 30 mg IVP once Route: IVP; Site: left antecubital; me1 18:28 Follow up: Response: No adverse reaction; Pain is unchanged, physician notified me1 17:46 Drug: metoCLOPramide IVP 10 mg IVP once; over 1 to 2 minutes Route: IVP; Site: left me1 antecubital; 18:28 Follow up: Response: No adverse reaction; Pain is unchanged, physician notified me1 17:46 Drug: diphenhydrAMINE IVP 25 mg IVP once Route: IVP; Site: left antecubital; me1 18:29 Follow up: Response: No adverse reaction; Pain is unchanged, physician notified me1 18:03 CANCELLED (Physician Discretion): Decadron - [id number] mg IVP once sb4 18:03 CANCELLED (Physician Discretion): magnesium sulfate1 grams IVPB once over 30 mins sb4 18:28 Drug: Hydrocodone-Acetaminophen PO (7.5 mg-325 mg) 1 tabs PO once Route: PO; me1 18:53 Follow up: Response: No adverse reaction me1 Disposition: 19:17 Co-signature as Attending Physician, Merrick Pina MD I reviewed the patient's care rt provided by the Advanced Practice Provider and agree with the diagnosis and treatment plan. Disposition Summary: 08/20/24 18:07 Discharge Ordered Notes: Location: Home sb4 Problem: an acute exacerbation sb4 Symptoms: have improved sb4 Condition: Stable sb4 Diagnosis - Migraine without aura, not intractable sb4 - UTI/ Urinary tract infection, site not specified sb4 Followup: sb4 - With: Private Physician - When: 1 week - Reason: Recheck today's complaints, Re-evaluation by your physician Discharge Instructions: - Discharge Summary Sheet sb4 - Urinary Tract Infection, Adult, [id number] sb4 - Migraine Headache, [id number] sb4 Forms: - Antibiotic Education sb4 - Patient Portal Instructions sb4 - Leadership Thank You Letter sb4 Prescriptions: - Macrobid 100 mg Oral Capsule - take 1 capsule ORAL route every 12 hours for 7 days; 14 capsule; Refills: 0, sb4 Product Selection Permitted Signatures: Dispatcher [employer] Fallon Quiros, RN RN Simona Laws PA-C PA-C sb4 Merrick Pina MD MD rt Lizette Stone RN RN me1 Corrections: (The following items were deleted from the chart) 17:16 16:45 TEST, SERUM+SC.LAB.BRZ ordered. EDMS EDMS 18:03 18:02 Magnesium Sulfate IVPB 1 grams IVPB once over 30 mins ordered. sb4 sb4 18:04 18:02 Decadron - Dexamethasone IVP 10 mg IVP once ordered. sb4 sb4
--- NOTE | 2024-08-20 18:08 | ER ---
Nurse's Notes [facility] Name: Elba Wells Age: 28 yrs Sex: Female : 1995 Arrival Date: 08/20/2024 Time: 16:19 Bed 18 Private MD: Diagnosis: Migraine without aura, not intractable;UTI/ Urinary tract infection, site not specified Presentation: 08/20 16:34 Chief complaint: Patient states: c/o migraine for the past 2-3 days with dizzy spells. iw Fell yesterday due to dizziness and has pain to left arm. Started vomiting today. Coronavirus screen: Vaccine status: Patient reports being unvaccinated. Ebola Screen: No symptoms or risks identified at this time. Initial Sepsis Screen: Does the patient meet any 2 criteria? No. Patient's initial sepsis screen is negative. Does the patient have a suspected source of infection? No. Patient's initial sepsis screen is negative. Risk Assessment: Do you want to hurt yourself or someone else? Patient reports no desire to harm self or others. Onset of symptoms was August 18, 2024. 16:34 Method Of Arrival: Ambulatory iw 16:34 Acuity: CED 3 iw Triage Assessment: 16:36 Headache History: The patient has had previous headaches and this one is similar to iw previous episodes. General: Appears uncomfortable, well groomed, well developed, well nourished, Behavior is calm, cooperative, appropriate for age. Pain: Complains of pain in head and left arm Pain does not radiate. Pain currently is 10 out of 10 on a pain scale. Quality of pain is described as aching, throbbing, Pain began 2-3 days ago. Is continuous, Also complains of nausea, dizziness. EENT: No signs and/or symptoms were reported regarding the EENT system. Neuro: Level of Consciousness is awake, alert, obeys commands, Oriented to person, place, time, situation, Appropriate for age. Neuro: Reports dizziness, headache. Cardiovascular: Patient's skin is warm and dry. Respiratory: Airway is patent Respiratory effort is even, unlabored, Respiratory pattern is regular, symmetrical. GI: Reports nausea, vomiting. : No signs and/or symptoms were reported regarding the genitourinary system. Derm: Skin is intact, is healthy with good turgor, Skin is pink, warm \T\ dry. Musculoskeletal: Reports pain in left arm since yesterday. Injury Description: s/p fall yesterday due to dizziness with pain to left arm. 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 - Infectious Disease History:: Denies. - Social history:: Smoking status: Patient denies any tobacco usage or history of. Screenin:39 [facility] ED Fall Risk Assessment (Adult) History of falling in the last 3 months, iw including since admission Yes- single mechanical fall (1 pt) Confusion or Disorientation No (0 pts) Intoxicated or Sedated No (0 pts) Impaired Gait No (0 pts) Mobility Assist Device Used No (0 pt) Altered Elimination No (0 pt) Score/Fall Risk Level 0 - 2 = Low Risk Maintained a safe environment, Provided non-skid footwear, Hourly rounding (assess needs \T\ fall precautionary measures) done. Abuse screen: Denies threats or abuse. Nutritional screening: No deficits noted. Tuberculosis screening: No symptoms or risk factors identified. Assessment: 16:39 General: See triage assessment. Pain: Complains of pain in left arm and head. iw 18:29 Reassessment: Discharge delayed to finish iv fluids. me1 Vital Signs: 16:34 BP 139 / 71; Pulse 72; Resp 18; Temp 98.1; Pulse Ox 99% ; Weight 89.81 kg; Height 5 ft. iw 7 in. ; Pain 10/10; 18:56 BP 128 / 68; Pulse 76; Resp 16; Temp 98.4; Pulse Ox 99% ; me1 16:34 Body Mass Index 31.01 (89.81 kg, 170.18 cm) iw 16:34 Pain Scale: Adult ED Course: 16:21 Patient arrived in ED. im 16:26 Fallon Mukherjee, BALDOMERO is Primary Nurse. iw 16:29 Simona Scruggs PA-C is PHCP. sb4 16:29 Merrick Pina MD is Attending Physician. sb4 16:36 Triage completed. iw 16:36 Arm band placed on Patient placed in an exam room. iw 16:39 Patient has correct armband on for positive identification. Bed in low position. Call iw light in reach. Side rails up X 1. Provided Education on: POC. Verbalized understanding.. Client placed on continuous cardiac and pulse oximetry monitoring. NIBP monitoring applied. Pulse ox on. NIBP on. 16:39 No provider procedures requiring assistance completed. iw 17:21 BMP Sent. em1 17:21 CBC with Diff Sent. em1 17:21 Initial lab(s) drawn, by me, sent to lab. Inserted saline lock: 22 gauge in left em1 antecubital area, using aseptic technique. Blood collected. Flushed with 10 mL NS Missed attempt(s): 22 gauge in right forearm. Bleeding controlled, band aid applied, catheter tip intact. 17:25 Head Brain Wo Cont CT In Process Unspecified. EDMS 17:46 Urine Culture Sent. me1 18:57 IV discontinued, intact, bleeding controlled, No redness/swelling at site. Pressure me1 dressing applied. Administered Medications: 17:45 Drug: NS 0.9% IV 1000 ml IV at 1000 ml once; to be given as a bolus over 60 minutes me1 Route: IV; Rate: 1000 ml; Site: left antecubital; 18:58 Follow up: Response: No adverse reaction; IV Status: Completed infusion; IV Intake: me1 1000ml 17:46 Drug: Ketorolac IVP 30 mg IVP once Route: IVP; Site: left antecubital; me1 18:28 Follow up: Response: No adverse reaction; Pain is unchanged, physician notified me1 17:46 Drug: metoCLOPramide IVP 10 mg IVP once; over 1 to 2 minutes Route: IVP; Site: left me1 antecubital; 18:28 Follow up: Response: No adverse reaction; Pain is unchanged, physician notified me1 17:46 Drug: diphenhydrAMINE IVP 25 mg IVP once Route: IVP; Site: left antecubital; me1 18:29 Follow up: Response: No adverse reaction; Pain is unchanged, physician notified me1 18:03 CANCELLED (Physician Discretion): Decadron - [id number] mg IVP once sb4 18:03 CANCELLED (Physician Discretion): magnesium sulfate1 grams IVPB once over 30 mins sb4 18:28 Drug: Hydrocodone-Acetaminophen PO (7.5 mg-325 mg) 1 tabs PO once Route: PO; me1 18:53 Follow up: Response: No adverse reaction me1 Medication: 16:39 VIS not applicable for this client. iw Intake: 18:58 IV: 1000ml; Total: 1000ml. me1 Outcome: 18:07 Discharge ordered by . sb4 18:57 Discharged to home ambulatory, with friend, me1 18:57 Condition: stable 18:57 Discharge instructions given to patient, Instructed on discharge instructions, follow up and referral plans. medication usage, Demonstrated understanding of instructions, follow-up care, medications, Prescriptions given X 1, 18:57 Patient left the ED. me1 Signatures: Dispatcher [employer] Fallon Quiros RN RN iw Martinez, Eric em1 Simona Scruggs, PAVarinderC PA-C 4 Nika Garcia Michelle RN RN me1
[2024-08-20] MEDS ORDERED: HYDROCODONE/APAP 7.5/325 MG TAB ONE (18:20)
[2024-08-20 19:01] VITALS: O2SAT 99
[2024-08-20 19:02] VITALS: BP 128/68; TEMP 98.4
== END 2024-08-20 18:57 | disposition home or self-care (01) ==
LOC: ER 16:19
DX: G43.009 Migraine without aura, not intractable, without status migrainosus (principal); N39.0 Urinary tract infection, site not specified
CPT/HCPCS: 96361; 87088; 85025; 81001; 87086; 80048; 36415; 81025; 80307; 70450; 96375; 96374; 99284; J2765; J1200; J7030